=== PATIENT | male | born 1945 | race Caucasian/White ===

== ENCOUNTER 2022-12-07 13:00 | Outpatient (OUT) | payer MEDICARE, OTHER, SELFPAY ==
--- NOTE | 2022-12-07 14:54 | CA_ITS ---
Patient: AJ PAYNE Exam Date: 12/07/2022 : 1945 Gender:M Ordering : HILLARY MURPHY Admission #: [id number] Family : Order #: [id number] CLICK HERE TO VIEW EXAM ECHOCARDIOGRAM REPORT PROCEDURE: CA ECHO DOPPLER COMPLETE INDICATIONS: CAD, HTN, Dilatation of aorta COMPARISON: None. DESCRIPTION: COMPLETE ECHOCARDIOGRAM Real-time transthoracic echocardiography with 2D, M-mode, spectral and color flow Doppler performed. QUALITY: Technical quality was good. LEFT VENTRICLE: Normal chamber size. Moderate concentric left ventricular hypertrophy. Global left ventricular systolic function is normal. LV EF: Estimated left ventricular ejection fraction is 60-65% DIASTOLIC: Grade 2 diastolic dysfunction. ATRIAL SEPTUM: LEFT ATRIUM: Moderate dilatation. RIGHT ATRIUM: Moderate dilatation. RIGHT VENTRICLE: Mildly dilated. Normal right ventricular systolic function. TRICUSPID VALVE: Normal mobility and thickness. No stenosis with mild regurgitation. Mild pulmonary hypertension. RVSP 41 mmHg MITRAL VALVE: Normal mobility and thickness. No evidence of mitral valve stenosis. Mild mitral annular calcification. Trivial mitral regurgitation. AORTIC VALVE: Normal trileaflet appearance. Mildly calcified aortic valve. Normal leaflet mobility. No evidence of aortic valve stenosis. No aortic regurgitation. AORTIC ROOT: Mildly dilated aortic root measuring 3.8 cm. Normal size ascending aorta measuring 3.6 cm. PULMONIC VALVE: Normal thickness and mobility. No stenosis. Trivial regurgitation. PERICARDIUM: No evidence of pericardial effusion. IVC: Not well visualized. PLEURA: CONCLUSION: 1. Moderate concentric left ventricular hypertrophy with normal systolic function. LVEF is 60 to 65%. 2. Mildly dilated right ventricle with normal systolic function. 3. Grade 2 diastolic dysfunction. 4. Moderate biatrial dilatation. 5. Mild tricuspid regurgitation. 6. Mildly elevated right-sided pressures. 7. Mildly dilated aortic root with normal size ascending aorta. Adult Echocardiography Procedure Report Left Ventricle LVEDD (3.7 - 5.6 cm): 4.00 cm LVESD (2.2 - 4.0 cm): 2.66 cm LVIVS thickness (0.6 - 1.2 cm): 1.29 cm LVPW thickness (0.5 - 1.0 cm): 1.73 cm e': 0.09 m/s E - e': 9.18 LVOT Max Gradient: 2.91 mm[Hg] LVOT Area (cm2): 0.85 m/s Peak Velocity (LVOT): 0.85 m/s Mean Velocity (LVOT): 0.60 m/s LVOT Diameter 2.18 cm Left Ventricular Ejection Fraction: 67.18 % Left Atrium LA Volume Index (2D A2C): 45.07 ml/m2 Left Atrium Systolic Dimension: 4.17 cm Mitral Valve MV E to A Ratio: 1.06 Mitral Valve A-Wave Peak Velocity: 0.80 m/s Mitral Valve E-Wave Peak Velocity: 0.85 m/s Right Ventricle RV Internal Diastolic Dimension: 3.19 cm Aorta AO Root Diam: 3.77 cm Ascending Ao Diam: 3.64 cm Aortic Valve AoV Area (Peak Cesario): 1.42 cm2, 1.42 cm2 AoV Area (VTI): 1.69 cm2, 1.69 cm2 Peak Velocity(Antegrade Flow): 2.25 m/s Peak Gradient(Antegrade Flow): 20.20 mm[Hg] Mean Velocity(Antegrade Flow): 1.43 m/s Mean Gradient(Antegrade Flow): 9.75 mm[Hg] Velocity Time Integral: 43.86 cm Tricuspid Valve Peak Velocity (Regurgitant Flow): 2.80 m/s, 3.06 m/s Pulmonic Valve Mean Gradient: 5.64 mm[Hg], 3.62 mm[Hg] Mean Velocity: 1.13 m/s, 0.90 m/s Peak Velocity: 1.43 m/s Peak Gradient: 10.40 mm[Hg], 6.33 mm[Hg] Right Atrium Right Atrium Systolic Pressure: 36.36 ml, 36.36 ml Dictated by: Gallito Griffith M.D. on 12/07/2022 at 18:21 Approved by: Gallito Griffith M.D. on 12/07/2022 at 18:29
== END 2022-12-07 13:01 | disposition home or self-care (01) ==
LOC: CARD 13:00
PROVIDERS: PCP Internal Medicine; Visit Provider Nurse Practitioner
DX: I25.10 Atherosclerotic heart disease of native coronary artery without angina pectoris (principal); I10 Essential (primary) hypertension; I77.819 Aortic ectasia, unspecified site; I07.1 Rheumatic tricuspid insufficiency
CPT/HCPCS: 93306

== ENCOUNTER 2023-04-30 12:09 | Observation (INO) | payer MEDICARE, OTHER, SELFPAY ==
[2023-04-30] VITALS (16 sets, daily range): BP systolic 90–139; BP diastolic 54–87; PULSE 50–86; RESP 16–24; TEMP 36.6–36.7; O2SAT 98–100; BMI 29.7
--- NOTE | 2023-04-30 12:30 | ECG_ITS ---
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: : 1945 Requested By: BERNARD SANCHEZ Order Number: [id number] Reading MD: NIRMAL HIRSCH Measurements Intervals [place] Rate: 77 P: 65 [place]: 196 QRS: -52 QRSD: 112 T: 73 QT: 406 QTc: 438 Interpretive Statements 1100 Sinus rhythm 1474 with frequent supraventricular premature complexes 2630 Left anterior fascicular block 3314 Cannot rule out anterolateral myocardial infarction, age undetermined 8102 Low QRS voltage in chest leads 9150 abnormal ECG Compared to ECG 02/03/2021 18:03:46 Low QRS voltage now present Left ventricular hypertrophy no longer present Early repolarization no longer present Myocardial infarct finding still present Electronically Signed On 05-02-2023 5:31:45 EST by NIRMAL HIRSCH
--- NOTE | 2023-04-30 12:30 | XR_ITS ---
[facility] [place] [id number] Patient Name: AJ PAYNE MRN: [id number] date: 1945 Sex: M Assigned Patient Location: ER Current Patient Location: ER Accession/Order Number: [id number] Exam Date: 04/30/2023 12:35 Report Date: 04/30/2023 12:49 At the request of: KEILY VELASQUEZ Procedure: XR chest 1V EXAMINATION: XR chest 1V 04/30/2023 9:47 AM PST HISTORY: cough TECHNIQUE: Single frontal view of the chest acquired. COMPARISONS: Chest x-ray 02/03/2021. FINDINGS: Lines/tubes/other: None. Heart and mediastinum: Cardiac silhouette is upper limits of normal for size, similar. Bones: No acute osseous abnormality. Lungs: Bilateral patchy opacification appears similar on the right and mildly worse on the left compared with 02/03/2021. No pulmonary edema. Pleura: There is no significant pleural effusion or pneumothorax. Other: None. XR/XR chest 1V IMPRESSION: Chronic bilateral pulmonary opacification which appears mildly worse on the left and could represent differences in exam technique versus superimposed pneumonia and/or aspiration. Consider noncontrast CT of the chest for more sensitive evaluation. Electronically authenticated by: GILBERT MUNGUIA Date: 04/30/2023 12:49
--- NOTE | 2023-04-30 12:32 | ED.GENADUL1 ---
HPI - General Adult General Chief complaint: Recheck/Abnormal Lab/Rx Stated complaint: ABNORMAL LAB VALUE Time Seen by Provider: 04/30/23 12:12 Source: patient Mode of arrival: walk-in Limitations: no limitations History of Present Illness HPI narrative: 77-year-old male presents to the emergency department for low blood count. He reportedly had blood drawn yesterday and he got a phone call that his hemoglobin was 5.2. This was done at another facility. 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 His stools have been slightly dark but not black. He is not on blood thinners. Related Data Home Medications Medication Instructions Recorded Confirmed aspirin 81 mg tablet,delayed 81 mg PO DAILY 04/30/23 04/30/23 release (Adult Low Dose Aspirin) atorvastatin 20 mg tablet 20 mg PO DAILY 04/30/23 04/30/23 clopidogrel 75 mg tablet 75 mg PO DAILY 04/30/23 04/30/23 levothyroxine 100 mcg tablet 100 mcg PO DAILY 04/30/23 04/30/23 multivitamin (Daily Multi-Vitamin 1 tab PO DAILY 04/30/23 04/30/23 tablet) omega 6-yzw-axz-fish oil 1,000 mg 1 cap PO TID 04/30/23 04/30/23 (120 mg-180 mg) capsule (Fish Oil) omeprazole 40 mg capsule,delayed 40 mg PO DAILY 04/30/23 04/30/23 release tizanidine 4 mg tablet 4 mg PO BEDTIME 04/30/23 04/30/23 Allergies Allergy/AdvReac Type Severity Reaction Status Date / Time No Known Drug Allergies Allergy Verified 04/30/23 12:17 PFSH PFS Social History Smoking status: Never smoker Exam Constitutional Vital Signs, click to edit/add: Last Vital Signs Temp 97.9 F 04/30/23 12:13 Pulse 86 04/30/23 12:13 Resp 20 04/30/23 12:13 BP 130/64 04/30/23 12:13 Pulse Ox 100 04/30/23 12:13 O2 Del Method Room Air 04/30/23 12:13 Course Vital Signs Vital signs: Vital Signs Temperature 97.9 F 04/30/23 12:13 Pulse Rate 86 04/30/23 12:13 Respiratory Rate 20 04/30/23 12:13 Blood Pressure 130/64 04/30/23 12:13 Pulse Oximetry 100 04/30/23 12:13 Oxygen Delivery Method Room Air 04/30/23 12:13 Temperature 97.9 F 04/30/23 12:13 Pulse Rate 86 04/30/23 12:13 Respiratory Rate 20 04/30/23 12:13 Blood Pressure 130/64 04/30/23 12:13 Pulse Oximetry 100 04/30/23 12:13 Oxygen Delivery Method Room Air 04/30/23 12:13 Medical Decision Making MDM Narrative Medical decision making narrative: Hemoglobin here is 5.3. Rectal exam showed heme-negative stool. Further workup will be required and blood is being ordered. Findings are discussed with the patient Differential Diagnosis Differential Diagnosis: GI bleed, bone marrow abnormality Lab Data Lab results reviewed: Yes I reviewed the patient's lab results Labs: Lab Results 04/30/23 04/30/23 Range/Units 12:24 12:44 WBC 3.1 L (4.0-11.0) 10^3/uL RBC 2.74 L (4.70-6.10) 10^6/uL Hgb 5.3 L* (14.0-18.0) g/dL Hct 20.7 L* (42.0-54.0) % MCV 75.5 L (80.0-94.0) fL MCH 19.3 L (25.9-34.0) pg MCHC 25.6 L (29.9-35.2) g/dL RDW 17.2 H (11.0-15.0) % Plt Count 105 L (150-450) 10^3/uL MPV 11.0 (9.5-13.5) fL PT 12.6 H (9.0-11.6) sec INR 1.20 APTT 27.0 (22.3-36.2) sec Sodium 144 (136-145) mmol/L Potassium 3.7 (3.5-5.1) mmol/L Chloride 111 H (98-107) mmol/L Carbon Dioxide 25.6 (21.0-32.0) mmol/L Anion Gap 11.1 BUN 22.0 H (7.0-18.0) mg/dL Creatinine 0.91 (0.70-1.30) mg/dL Est GFR ( Amer) >60 (>=60) Est GFR (Non-Af Amer) >60 (>=60) BUN/Creatinine Ratio 24.2 Glucose 117 H (74-106) mg/dL Calcium 8.2 L (8.5-10.1) mg/dL Stool Occult Blood Negative ECG Data Attestation: I personally reviewed and interpreted this ECG as follows: (EKG on my interpretation shows sinus rhythm with a rate of 77.) Discharge Plan Discharge Chief Complaint: Recheck/Abnormal Lab/Rx Clinical Impression: Anemia Patient Disposition: Admitted as Observation Time of Disposition Decision: 12:58 Condition: Good
[2023-04-30 12:40] LABS: Anion Gap 11.1; BUN Creatinine Ratio 24.2; Calcium 8.2 mg/dL (8.5-10.1); Carbon Dioxide 25.6 mmol/L (21.0-32.0); Chloride 111 mmol/L (98-107); Estimated GFR (African America >60 (>=60); Estimated GFR (Non-African Ame >60 (>=60); Glucose 117 mg/dL (74-106); Potassium 3.7 mmol/L (3.5-5.1); Sodium 144 mmol/L (136-145)
[2023-04-30 12:41] LABS: Mean Corpuscular HGB Conc 25.6 g/dL (29.9-35.2); Mean Corpuscular Hemoglobin 19.3 pg (25.9-34.0); Mean Corpuscular Volume 75.5 fL (80.0-94.0); Platelet Count 105 10^3/uL (150-450); Red Blood Count 2.74 10^6/uL (4.70-6.10); Red Cell Distribution Width 17.2 % (11.0-15.0); White Blood Count 3.1 10^3/uL (4.0-11.0)
[2023-04-30 12:46] LABS: Hemoglobin 5.3 g/dL (14.0-18.0); Prothrombin Time 12.6 sec (9.0-11.6)
[2023-04-30 12:47] LABS: Hematocrit 20.7 % (42.0-54.0)
[2023-04-30 12:54] LABS: Occult Blood Negative
[2023-04-30 13:09] LABS: Band Neutrophils Absolute 0.1 10^3/uL (0.0-0.3); Basophils Abs Manual 0.03 10^3/uL (0.00-0.10); Eosinophils Absolute Manual 0.21 10^3/uL (0.00-0.70); Lymphocytes Absolute Manual 0.62 10^3/uL (1.20-3.80); Monocytes Absolute Manual 0.15 10^3/uL (0.30-0.80); Segmented Neut Absolute Manual 2.01 10^3/uL (1.4-6.5)
[2023-04-30 13:10] LABS: Anisocytosis 1+; Hypochromasia 2+; Microcytosis 2+; Ovalocytes 1+; Poikilocytosis 1+
[2023-04-30] MEDS: 0.9 % SODIUM CHLORIDE 250 ML IV ×2 (14:04→21:21)
--- NOTE | 2023-04-30 14:27 | P.HP_ITS ---
H&P: HPI History of Present Illness Chief complaint: ABNORMAL LAB VALUE Narrative: Patient instructed to present to the emergency room secondary to outpatient workup for acute CVA which revealed significant anemia with a hemoglobin just above 5. His melena. No hematuria. No hemoptysis. No hematemesis. Has had a general fatigue over the last 2 to 3 months. More cold intolerance as well. Patient will be admitted for further workup and treatment of his significant anemia Review of Systems ROS Status of ROS 10 or more systems reviewed and unremark able except as noted in history and below 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 - Unspecified cirrhosis of liver (ICD-10) Surgical History (Updated 04/30/23 @ 13:50 by Karena Monroe) H/O heart artery stent ?Z95.5 - Presence of coronary angioplasty implant and graft (ICD-10) Social History Smoking status: Never smoker Highest level of school completed/degree received: Bachelor's degree Meds Home Medications and Allergies Home Medications Medication Instructions Recorded Confirmed Type aspirin 81 mg tablet,delayed 81 mg PO DAILY 04/30/23 04/30/23 History release (Adult Low Dose Aspirin) atorvastatin 20 mg tablet 20 mg PO DAILY 04/30/23 04/30/23 History clopidogrel 75 mg tablet 75 mg PO DAILY 04/30/23 04/30/23 History levothyroxine 100 mcg tablet 100 mcg PO DAILY 04/30/23 04/30/23 History multivitamin (Daily Multi-Vitamin 1 tab PO DAILY 04/30/23 04/30/23 History tablet) omega 5-zgu-dgm-fish oil 1,000 mg 1 cap PO TID 04/30/23 04/30/23 History (120 mg-180 mg) capsule (Fish Oil) omeprazole 40 mg capsule,delayed 40 mg PO DAILY 04/30/23 04/30/23 History release tizanidine 4 mg tablet 4 mg PO BEDTIME 04/30/23 04/30/23 History Allergies Allergy/AdvReac Type Severity Reaction Status Date / Time No Known Drug Allergies Allergy Verified 04/30/23 12:17 Exam Constitutional Vital Signs, click to edit/add: Last Vital Signs Temp 98 F 04/30/23 14:05 Pulse 71 04/30/23 14:05 Resp 16 04/30/23 14:05 BP 127/73 04/30/23 14:05 Pulse Ox 100 04/30/23 14:05 O2 Del Method Room Air 04/30/23 14:05 Documenting provider has reviewed patient's vital signs: yes Common normals: no apparent distress Chest Common normals: inspection of chest normal Respiratory Common normals: normal respiratory effort and no retractions Cardio Common normals: regular rate and regular rhythm; murmurs detected Heart sounds: murmur systolic GI Common normals: Normal to inspection, nondistended, normoactive bowel sounds present Neuro Common normals: oriented x3, CN's II-XII intact bilaterally and moves all extremities Results Labs Labs: Short CBC 04/30/23 Range/Units 12:24 WBC 3.1 L (4.0-11.0) 10^3/uL Hgb 5.3 L* (14.0-18.0) g/dL Hct 20.7 L* (42.0-54.0) % Plt Count 105 L (150-450) 10^3/uL BMP 04/30/23 12:24 Sodium 144 Potassium 3.7 Chloride 111 H Carbon Dioxide 25.6 BUN 22.0 H Creatinine 0.91 Glucose 117 H Calcium 8.2 L Assessment and Plan Assessment and Plan (1) Anemia: Assessment and Plan: Anemia-still sorting out the source. Initially Hemoccult was negative we will repeat that. Check peripheral smear, ferritin, iron, B12, folate. Consult to hematology today. Initially try 2 units of PRBCs if hemoglobin less than 8.5 to give a third. (2) Thrombocytopenia: Assessment and Plan: See workup above (3) Neutropenia: Assessment and Plan: See work (4) Hypothyroid: Assessment and Plan: Check TSH (5) Non-alcoholic cirrhosis: Assessment and Plan: Check liver profile (6) GERD (gastroesophageal reflux disease): Assessment and Plan: Gastritis still possible cause for the GI source of blood loss. IV Protonix Plan *Patient is observation status with initial workup. If hemoglobin comes up nicely with the transfusion would not need further workup as an inpatient and can be discharged home tomorrow
[2023-04-30 15:02] LABS: Erythrocyte Sedimentation Rate 1 mm/hr (<=20)
[2023-04-30 15:06] LABS: Alanine Aminotransferase 40 U/L (16-63); Albumin Globulin Ratio 0.8; Albumin Level 2.7 g/dL (3.4-5.0); Alkaline Phosphatase 145 U/L (46-116); Aspartate Amino Transferase 43 U/L (15-37); Bilirubin Direct 0.2 mg/dL (0.0-0.2); Bilirubin Total 0.6 mg/dL (0.2-1.0); Globulin 3.6 g/dL; Total Protein 6.3 g/dL (6.4-8.2); Troponin I High Sensitivity 32.9 pg/mL (4.0-76.1)
[2023-04-30 15:11] LABS: C Reactive Protein <0.50 mg/dL (<=0.50); TSH W/ REFLEX FT4 2.477 uIU/mL (0.358-3.740)
[2023-04-30] MEDS: FUROSEMIDE 20 MG/2 ML VIAL IVP (15:41)
[2023-04-30 18:10] LABS: Hematocrit 27.3 % (42.0-54.0); Hemoglobin 7.5 g/dL (14.0-18.0); Mean Corpuscular HGB Conc 27.5 g/dL (29.9-35.2); Mean Corpuscular Hemoglobin 21.9 pg (25.9-34.0); Mean Corpuscular Volume 79.8 fL (80.0-94.0); Mean Platelet Volume 11.4 fL (9.5-13.5); Platelet Count 96 10^3/uL (150-450); Red Blood Count 3.42 10^6/uL (4.70-6.10); Red Cell Distribution Width 17.4 % (11.0-15.0); White Blood Count 3.2 10^3/uL (4.0-11.0)
--- NOTE | 2023-04-30 19:56 | PM.CN ---
Consult Note: [facility] Data of Consult Consult date: 04/30/23 Requesting Physician: Jose Manning MD Primary Care Provider: BERNARD SANCHEZ Consult Narrative Reason for consult: microcytic anemia, iron deficiency, leukopenia, thrombocytopenia Narrative: 77 y/o male who has a hx of CAD and stenting, who was instructed to present to the emergency room secondary to outpatient workup for acute CVA which revealed significant anemia with a hemoglobin just above 5 g/dL. He notes that he takes low dose ASA and per review of his med list, he does take plavix. Upon probing, he states that perhaps his stools have bit a bit dark brown, but not bright red or black. He denies hematuria. No hemoptysis. No hematemesis. He has had a general fatigue over the last 2 to 3 months. More cold intolerance as well. 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 He notes that he did have gall bladder surgery approx a year ago. Labs show WBC 3.1, Hgb 5.3 g/dL, MCV 75.5, plt 105K. He has received 2 unit PRBC while admitted. He has a normal differential. ESR is normal. Cr is normal. He has low iron 23 and low ferritin 7. B12 and folic acid normal. His stool was negative for blood. I discussed that his acute issue suggests prior / subacute blood loss anemia, especially with dual antiplatelet therapy. He would benefit from outpatient scope. I discussed that he may also have a low grade myelodysplastic syndrome with his other cell lines being low, however, this would be tested as an outpt, with possible bone marrow biopsy. 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 I will coordinate IV iron while admitted, and also long acting IV iron as an outpt. ECOG PS 2-3. cc:: CC: Jose Manning MD Review of Systems ROS Narrative A comprehensive 12 point review of systems was conducted and is negative other than that reported in the history of present illness. 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 - Unspecified cirrhosis of liver (ICD-10) Surgical History (Updated 04/30/23 @ 13:50 by Karena Monroe) H/O heart artery stent ?Z95.5 - Presence of coronary angioplasty implant and graft (ICD-10) Social History Smoking status: Never smoker Highest level of school completed/degree received: Bachelor's degree Meds Home Medications and Allergies Home Medications Medication Instructions Recorded Confirmed Type aspirin 81 mg tablet,delayed 81 mg PO DAILY 04/30/23 04/30/23 History release (Adult Low Dose Aspirin) atorvastatin 20 mg tablet 20 mg PO DAILY 04/30/23 04/30/23 History clopidogrel 75 mg tablet 75 mg PO DAILY 04/30/23 04/30/23 History levothyroxine 100 mcg tablet 100 mcg PO DAILY 04/30/23 04/30/23 History multivitamin (Daily Multi-Vitamin 1 tab PO DAILY 04/30/23 04/30/23 History tablet) omega 1-xyi-vsr-fish oil 1,000 mg 1 cap PO TID 04/30/23 04/30/23 History (120 mg-180 mg) capsule (Fish Oil) omeprazole 40 mg capsule,delayed 40 mg PO DAILY 04/30/23 04/30/23 History release tizanidine 4 mg tablet 4 mg PO BEDTIME 04/30/23 04/30/23 History Allergies Allergy/AdvReac Type Severity Reaction Status Date / Time No Known Drug Allergies Allergy Verified 04/30/23 12:17 Exam Narrative Exam Narrative: Documenting provider has reviewed patient's vital signs: yes Constitutional: well developed male, normal weight HEENT: no apparent distress, normocephalic and atraumatic Chest Common normals: inspection of chest normal. No wheezing, crackles. Respiratory Common normals: normal respiratory effort and no retractions Cardio Common normals: regular rate and regular rhythm; Heart sounds: murmur systolic GI Common normals: Normal to inspection, nondistended, normoactive bowel sounds present Extremities: no clubbing, cyanosis, edema Neuro Common normals: oriented x3, CN's II-XII intact bilaterally and moves all extremities Lymphatics: No cervical or axillary LAD Back / musculoskeletal: No pain or tenderness to palpation SKIN: No rashes Constitutional Vital Signs, click to edit/add: Last Vital Signs Temp 98 F 04/30/23 18:25 Pulse 74 04/30/23 18:25 Resp 16 04/30/23 18:25 BP 114/78 04/30/23 18:25 Pulse Ox 98 04/30/23 18:25 O2 Del Method Room Air 04/30/23 18:25 Results Labs Labs: Short CBC 04/30/23 04/30/23 Range/Units 12:24 18:03 WBC 3.1 L 3.2 L (4.0-11.0) 10^3/uL Hgb 5.3 L* 7.5 L (14.0-18.0) g/dL Hct 20.7 L* 27.3 L (42.0-54.0) % Plt Count 105 L 96 L (150-450) 10^3/uL BMP 04/30/23 12:24 Sodium 144 Potassium 3.7 Chloride 111 H Carbon Dioxide 25.6 BUN 22.0 H Creatinine 0.91 Glucose 117 H Calcium 8.2 L Liver Function 04/30/23 Range/Units 12:24 Total Bilirubin 0.6 (0.2-1.0) mg/dL Direct Bilirubin 0.2 (0.0-0.2) mg/dL AST 43 H (15-37) U/L ALT 40 (16-63) U/L Alkaline Phosphatase 145 H (46-116) U/L Albumin 2.7 L (3.4-5.0) g/dL Assessment and Plan Assessment and Plan (1) Anemia: (2) Thrombocytopenia: (3) Neutropenia: (4) Hypothyroid: (5) Non-alcoholic cirrhosis: (6) GERD (gastroesophageal reflux disease): Plan 77 y/o male who has a hx of CAD and stenting, on dual antiplatelet therapy, now referred for acute / microcytic anemia, as well as leukopenia / thrombocytopenia. Impression: # Acute / microcytic anemia # Iron deficiency, with low iron and low ferritin, and microcytosis # Dual antiplatelet therapy with asa and plavix # CAD and prior stenting, several years ago # Leukopenia / thrombocytopenia # Hx of NAFLD / SCALNON PLAN: - retic, LDH, haptoglobin, peripheral smear, SPEP - agree with pRBC to maintain Hgb > 7 g/dL - stool appropriately tested and negative for bleeding / occult blood - i will add IV Venofer while admitted. He will also need long acting IV iron, such as Injectafer or Feraheme, from our office when discharged. - i would recommend potentially holding plavix [facility], as his stenting appears to be several years ago, but defer this to PCP / cardiology - he will benefit from upper / lower endoscopy as an outpt - will ensure no hemolysis. If that testing is negative, we will discuss possible BM biopsy as an outpt to evaluate for myelodysplastic syndrome. DDx for his low wbc / platelets can also be liver disease. I can facilitate testing including liver / spleen US as an oupt. Thank you for the consult. He can be discharged when Hgb stable, and after IV iron infusion. Dior Sevilla MD Hematology Oncology
[2023-04-30 21:12] LABS: Lactate Dehydrogenase 300 U/L (85-227)
[2023-04-30] MEDS: TIZANIDINE HCL 4 MG TABLET PO (21:21)
[2023-04-30] MEDS: ATORVASTATIN CALCIUM 20 MG TABLET PO (21:21)
[2023-04-30] MEDS: FISH OIL 1,000 MG CAPSULE 1000 MG PO (21:21)
[2023-05-01 03:00] VITALS: PULSE 60; RESP 22
[2023-05-01 04:00] VITALS: BP 104/68; PULSE 58; RESP 24; TEMP 36.7; O2SAT 96
[2023-05-01 04:19] LABS: Basophils Percent Auto 0.8 % (0.2-2.0); Eosinophils Absolute Auto 0.2 10^3/uL (0.0-0.7); Eosinophils Percent Auto 5.1 % (0.9-7.0); Hematocrit 27.5 % (42.0-54.0); Hemoglobin 7.8 g/dL (14.0-18.0); Immature Granulocytes Abs Auto 0.05 10^3/uL (0.00-0.03); Immature Granulocytes Pct Auto 1.3 % (0.0-0.5); Lymphocytes Absolute Auto 0.9 10^3/uL (1.2-3.8); Mean Corpuscular HGB Conc 28.4 g/dL (29.9-35.2); Mean Corpuscular Hemoglobin 22.3 pg (25.9-34.0); Mean Corpuscular Volume 78.8 fL (80.0-94.0); Mean Platelet Volume 11.7 fL (9.5-13.5); Monocytes Absolute Auto 0.4 10^3/uL (0.3-0.8); Monocytes Percent Auto 11.1 % (1.7-12.0); Neutrophils Absolute Auto 2.4 10^3/uL (1.4-6.5); Neutrophils Percent Auto 59.7 % (43.0-75.0); Platelet Count 95 10^3/uL (150-450); Red Blood Count 3.49 10^6/uL (4.70-6.10); Red Cell Distribution Width 17.8 % (11.0-15.0)
[2023-05-01 04:40] LABS: INR 1.23; Partial Thromboplastin Time 28.1 sec (22.3-36.2); Prothrombin Time 12.9 sec (9.0-11.6)
[2023-05-01 04:41] LABS: Alanine Aminotransferase 35 U/L (16-63); Albumin Globulin Ratio 0.8; Albumin Level 2.4 g/dL (3.4-5.0); Alkaline Phosphatase 130 U/L (46-116); Anion Gap 9.6; Aspartate Amino Transferase 40 U/L (15-37); BUN Creatinine Ratio 21.3; Bilirubin Total 1.5 mg/dL (0.2-1.0); Calcium 7.8 mg/dL (8.5-10.1); Carbon Dioxide 25.4 mmol/L (21.0-32.0); Chloride 111 mmol/L (98-107); Estimated GFR (African America >60 (>=60); Estimated GFR (Non-African Ame >60 (>=60); Globulin 3.1 g/dL; Glucose 91 mg/dL (74-106); Sodium 142 mmol/L (136-145); Total Protein 5.5 g/dL (6.4-8.2)
[2023-05-01] MEDS: IRON SUCROSE COMPLEX 300 MG in 0.9 % SODIUM CHLORIDE 250 ML 176.667 MG IV (08:03)
[2023-05-01 08:16] LABS: Bilirubin Urine NEGATIVE (NEGATIVE); Blood Urine NEGATIVE (NEGATIVE); Clarity Urine CLEAR (CLEAR); Color Urine YELLOW (YELLOW); Glucose Urine UA NEGATIVE (NEGATIVE); Ketones Urine NEGATIVE (NEGATIVE); Leukocyte Esterase Urine NEGATIVE (NEGATIVE); Nitrite Urine NEGATIVE (NEGATIVE); Protein Urine NEGATIVE (NEG/TRACE)
--- NOTE | 2023-05-01 08:55 | PM.DS1 ---
DS: Providers Provider Date of admission: 04/30/23 13:26 Primary care physician: BERNARD SANCHEZ Consults: 04/30/23 14:20 Consult to Oncology Routine Consulting Provider: Dior Sevilla Reason for consultation: Anemia, neutropenia, thrombocytopenia Has provider been notified: No DS: Diagnosis Discharge Diagnosis (1) Anemia: (2) Thrombocytopenia: (3) Neutropenia: (4) Hypothyroid: (5) Non-alcoholic cirrhosis: (6) GERD (gastroesophageal reflux disease): DS: Summary Hospital Course Hospital Course: Patient was having a workup with his PCP for weakness. The weakness had been going on for couple months. Also cold intolerance. Workup found patient has significantly anemia with a hemoglobin of around 5. Patient was admitted, given 2 units of PRBCs. Had good improvement in his hemoglobin up to 7.7, he has a 7 for today and feels stable. Consultation with hematology. Workup undergoing for the source. Did recommend he continue with his Plavix and aspirin as his Hemoccult x 2 were both negative. Not having any melena. Patient did receive an iron infusion while he was here. He can follow-up with oncology within the next week. 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 These could be related to his nonalcoholic cirrhosis as well however. Patient is to follow-up with PCP within the next week. Medications see list. Time Spent with Patient Time attestation: Total time spent providing and/or coordinating discharge services: Exam Constitutional Vital Signs, click to edit/add: Last Vital Signs Temp 98.1 F 05/01/23 04:00 Pulse 58 L 05/01/23 04:00 Resp 24 05/01/23 04:00 BP 104/68 05/01/23 04:00 Pulse Ox 96 05/01/23 04:00 O2 Del Method Room Air 05/01/23 04:00 Documenting provider has reviewed patient's vital signs: yes Common normals: no apparent distress Chest Common normals: inspection of chest normal Respiratory Common normals: normal respiratory effort and no retractions Cardio Common normals: regular rate and regular rhythm; murmurs detected Heart sounds: murmur systolic GI Common normals: Normal to inspection, nondistended, normoactive bowel sounds present Neuro Common normals: oriented x3, CN's II-XII intact bilaterally and moves all extremities DS: Data Data Completed and Pending Labs on day of discharge: Labs from last 24 hours 05/01/23 05/01/23 04/30/23 07:00 03:58 20:44 WBC 4.0 RBC 3.49 L Hgb 7.8 L Hct 27.5 L MCV 78.8 L MCH 22.3 L MCHC 28.4 L RDW 17.8 H Plt Count 95 L MPV 11.7 Neut % (Auto) 59.7 Lymph % (Auto) 22.0 [place] % (Auto) 11.1 Eos % (Auto) 5.1 Baso % (Auto) 0.8 Neut # (Auto) 2.4 Lymph # (Auto) 0.9 L [place] # (Auto) 0.4 Eos # (Auto) 0.2 Baso # (Auto) 0.0 Abs Immat Gran (auto) 0.05 H Seg Neuts % (Manual) Band Neutrophils % Lymphocytes % (Manual) Monocytes % (Manual) Eosinophils % (Manual) Basophils % (Manual) Imm/Tot Granulo (auto) 1.3 H Neutrophils # (Manual) Band Neutrophils # Lymphocytes # (Manual) Monocytes # (Manual) Eosinophils # (Manual) Basophils # (Manual) Hypochromasia Poikilocytosis Anisocytosis Microcytosis Ovalocytes ESR Retic Count (auto) 2.30 PT 12.9 H INR 1.23 APTT 28.1 Sodium 142 Potassium 4.0 Chloride 111 H Carbon Dioxide 25.4 Anion Gap 9.6 BUN 20.0 H Creatinine 0.94 Est GFR ( Amer) >60 Est GFR (Non-Af Amer) >60 BUN/Creatinine Ratio 21.3 Glucose 91 Calcium 7.8 L Iron Ferritin Total Bilirubin 1.5 H Direct Bilirubin AST 40 H ALT 35 Alkaline Phosphatase 130 H Lactate Dehydrogenase 300 H Troponin I High Sens C-Reactive Protein NT-Pro-B Natriuret Pep Total Protein 5.5 L Albumin 2.4 L Globulin 3.1 Albumin/Globulin Ratio 0.8 Vitamin B12 Folate TSH & Free T4 Interp Urine Color Yellow Urine Clarity Clear Urine pH 6.0 Ur Specific [place] 1.010 Urine Protein Negative Urine Glucose (UA) Negative Urine Ketones Negative Urine Occult Blood Negative Urine Nitrite Negative Urine Bilirubin Negative Urine Urobilinogen 1.0 Ur Leukocyte Esterase Negative Stool Occult Blood Blood Type Antibody Screen Crossmatch 04/30/23 04/30/23 04/30/23 18:03 13:11 12:44 WBC 3.2 L RBC 3.42 L Hgb 7.5 L Hct 27.3 L MCV 79.8 L MCH 21.9 L MCHC 27.5 L RDW 17.4 H Plt Count 96 L MPV 11.4 Neut % (Auto) Lymph % (Auto) [place] % (Auto) Eos % (Auto) Baso % (Auto) Neut # (Auto) Lymph # (Auto) [place] # (Auto) Eos # (Auto) Baso # (Auto) Abs Immat Gran (auto) Seg Neuts % (Manual) Band Neutrophils % Lymphocytes % (Manual) Monocytes % (Manual) Eosinophils % (Manual) Basophils % (Manual) Imm/Tot Granulo (auto) Neutrophils # (Manual) Band Neutrophils # Lymphocytes # (Manual) Monocytes # (Manual) Eosinophils # (Manual) Basophils # (Manual) Hypochromasia Poikilocytosis Anisocytosis Microcytosis Ovalocytes ESR Retic Count (auto) PT INR APTT Sodium Potassium Chloride Carbon Dioxide Anion Gap BUN Creatinine Est GFR ( Amer) Est GFR (Non-Af Amer) BUN/Creatinine Ratio Glucose Calcium Iron Ferritin Total Bilirubin Direct Bilirubin AST ALT Alkaline Phosphatase Lactate Dehydrogenase Troponin I High Sens C-Reactive Protein NT-Pro-B Natriuret Pep Total Protein Albumin Globulin Albumin/Globulin Ratio Vitamin B12 Folate TSH & Free T4 Interp Urine Color Urine Clarity Urine pH Ur Specific [place] Urine Protein Urine Glucose (UA) Urine Ketones Urine Occult Blood Urine Nitrite Urine Bilirubin Urine Urobilinogen Ur Leukocyte Esterase Stool Occult Blood Negative Blood Type Antibody Screen Crossmatch See Detail 04/30/23 12:24 WBC 3.1 L RBC 2.74 L Hgb 5.3 L* Hct 20.7 L* MCV 75.5 L MCH 19.3 L MCHC 25.6 L RDW 17.2 H Plt Count 105 L MPV 11.0 Neut % (Auto) Lymph % (Auto) [place] % (Auto) Eos % (Auto) Baso % (Auto) Neut # (Auto) Lymph # (Auto) [place] # (Auto) Eos # (Auto) Baso # (Auto) Abs Immat Gran (auto) Seg Neuts % (Manual) 65.0 Band Neutrophils % 2.0 Lymphocytes % (Manual) 20.0 L Monocytes % (Manual) 5.0 Eosinophils % (Manual) 7.0 Basophils % (Manual) 1.0 Imm/Tot Granulo (auto) Neutrophils # (Manual) 2.01 Band Neutrophils # 0.1 Lymphocytes # (Manual) 0.62 L Monocytes # (Manual) 0.15 L Eosinophils # (Manual) 0.21 Basophils # (Manual) 0.03 Hypochromasia 2+ Poikilocytosis 1+ Anisocytosis 1+ Microcytosis 2+ Ovalocytes 1+ ESR 1 Retic Count (auto) PT 12.6 H INR 1.20 APTT 27.0 Sodium 144 Potassium 3.7 Chloride 111 H Carbon Dioxide 25.6 Anion Gap 11.1 BUN 22.0 H Creatinine 0.91 Est GFR ( Amer) >60 Est GFR (Non-Af Amer) >60 BUN/Creatinine Ratio 24.2 Glucose 117 H Calcium 8.2 L Iron 23.0 L Ferritin 7.0 L Total Bilirubin 0.6 Direct Bilirubin 0.2 AST 43 H ALT 40 Alkaline Phosphatase 145 H Lactate Dehydrogenase Troponin I High Sens 32.9 C-Reactive Protein <0.50 NT-Pro-B Natriuret Pep 673.0 Total Protein 6.3 L Albumin 2.7 L Globulin 3.6 Albumin/Globulin Ratio 0.8 Vitamin B12 822.0 Folate 24.10 TSH & Free T4 Interp 2.477 Urine Color Urine Clarity Urine pH Ur Specific [place] Urine Protein Urine Glucose (UA) Urine Ketones Urine Occult Blood Urine Nitrite Urine Bilirubin Urine Urobilinogen Ur Leukocyte Esterase Stool Occult Blood Blood Type A Positive Antibody Screen Negative Crossmatch See Detail Discharge Plan Discharge Disposition: Home, Self-Care Condition: Good Discharge Medications: Continued atorvastatin 20 mg tablet 20 mg PO DAILY clopidogrel 75 mg tablet 75 mg PO DAILY levothyroxine 100 mcg tablet 100 mcg PO DAILY omeprazole 40 mg capsule,delayed release(DR/EC) 40 mg PO BID tizanidine 4 mg tablet 4 mg PO BEDTIME aspirin [Adult Low Dose Aspirin] 81 mg tablet,delayed release (DR/EC) 81 mg PO DAILY omega 9-yls-hur-fish oil [Fish Oil] 1,000 mg (120 mg-180 mg) capsule 1 cap PO TID multivitamin [Daily Multi-Vitamin] Tablet 1 tab PO DAILY Activity: increase activity as tolerated Diet: regular diet Patient Instructions: Iron Rich Diet (DC), Iron Deficiency Anemia (GEN) Forms: Portal Instructions Follow Up Appointments: Liliana Evans. 2023 @ 1:45, Hitesh Poe. 2023 @ 10:30 Discharge Date/Time: 05/01/23 09:54
[2023-05-01 09:17] LABS: Bacteria Urine NONE SEEN #/HPF (NONE SEEN); RBC Urine NONE SEEN #/HPF (0-2); WBC Urine NONE SEEN #/HPF (NONE SEEN)
[2023-05-01 09:18] LABS: Mucus Urine NONE SEEN (NONE SEEN); Squamous Epithelial Cell Urine RARE #/LPF (NONE/RARE)
--- NOTE | 2023-05-01 10:02 | CM.NOTE ---
Rounds made with Dr. Manning. Plan for discharge today.
[2023-05-02 08:13] LABS: Haptoglobin 51 mg/dL (34-355)
--- NOTE | 2023-05-06 14:42 | CM.DCFOLLOWU ---
1st attempt discharge follow up call made by Laury Mooney on 05/06/23, no answer
== END 2023-05-01 09:54 | disposition home or self-care (01) ==
LOC: ER 12:58 → ICU 13:31
PROVIDERS: Internal Medicine Hematology & Oncology; Admitting Provider Family Medicine; Emergency Provider Emergency Medicine; PCP Internal Medicine; Visit Provider Family Medicine
DX: D50.9 Iron deficiency anemia, unspecified (principal); D69.6 Thrombocytopenia, unspecified; D70.9 Neutropenia, unspecified; E03.9 Hypothyroidism, unspecified; K74.60 Unspecified cirrhosis of liver; K21.9 Gastro-esophageal reflux disease without esophagitis; M19.90 Unspecified osteoarthritis, unspecified site; K75.81 Nonalcoholic steatohepatitis (NASH); Z95.5 Presence of coronary angioplasty implant and graft; Z79.82 Long term (current) use of aspirin; Z79.890 Hormone replacement therapy; Z79.899 Other long term (current) drug therapy; I25.10 Atherosclerotic heart disease of native coronary artery without angina pectoris
CPT/HCPCS: 36415; 36430; 71045; 80048; 80053; 80076; 81001; 82607; 82728; 82746; 83010; 83540; 83615; 83880; 84443; 84484; 85007; 85025; 85027; 85610; 85652; 85730; 86140; 86850; 86900; 86901; 93005; 94761; 96365; 96375; 99285; G0328; G0378; J1756; J1940; P9016

== ENCOUNTER 2023-05-22 07:25 | Outpatient (RCR) | payer MEDICARE, OTHER, SELFPAY ==
[2023-05-15 13:57] VITALS: BP 127/66; PULSE 66; RESP 18; TEMP 36.6; O2SAT 97
[2023-05-15] MEDS: FERUMOXYTOL 510 MG in 0.9 % SODIUM CHLORIDE 100 ML 234 MG IV (14:14)
--- NOTE | 2023-05-15 14:26 | PC.NURSE ---
1357: Pt. to [facility] amb. Seated in recliner. VSS. #24 gauge IV initiated to left hand on second attempt per. MARISOL Bray. Flushes easily without redness or edema. Pt. tolerated with min. c/o discomfort. IV Feraheme initiated at this time. Pt. denies needs or c/o.
--- NOTE | 2023-05-15 14:54 | PC.NURSE ---
1444: IV Emre completed at this time. Pt. tolerated well. IV d/c'd, pressure to site. 1445: Pt. d/c'd amb. to home.
[2023-05-22 14:00] VITALS: BP 132/76; PULSE 65; RESP 16; O2SAT 97
[2023-05-22] MEDS: FERUMOXYTOL 510 MG in 0.9 % SODIUM CHLORIDE 100 ML 234 MG IV (14:12)
--- NOTE | 2023-05-22 14:17 | PC.NURSE ---
Patient is here for feraheme infusion. He denies any concerns or complaints. IV started in his right hand with good blood return. He denies any issues or concerns at this time.
== END 2023-05-22 14:48 | disposition home or self-care (01) ==
LOC: INF 07:25
PROVIDERS: PCP Internal Medicine; Visit Provider Internal Medicine Hematology & Oncology
DX: D50.9 Iron deficiency anemia, unspecified (principal); D64.9 Anemia, unspecified; K90.9 Intestinal malabsorption, unspecified; D72.819 Decreased white blood cell count, unspecified; D69.6 Thrombocytopenia, unspecified; I25.10 Atherosclerotic heart disease of native coronary artery without angina pectoris
CPT/HCPCS: 96365; G0463; Q0138

== ENCOUNTER 2023-06-28 10:30 | Outpatient (OUT) | payer MEDICARE, OTHER, SELFPAY ==
[2023-06-28 10:48] LABS: Basophils Percent Auto 0.8 % (0.2-2.0); Eosinophils Absolute Auto 0.2 10^3/uL (0.0-0.7); Eosinophils Percent Auto 6.2 % (0.9-7.0); Hematocrit 37.6 % (42.0-54.0); Hemoglobin 11.3 g/dL (14.0-18.0); Immature Granulocytes Abs Auto 0.01 10^3/uL (0.00-0.03); Immature Granulocytes Pct Auto 0.3 % (0.0-0.5); Lymphocytes Absolute Auto 0.8 10^3/uL (1.2-3.8); Lymphocytes Percent Auto 20.9 % (20.5-60.0); Mean Corpuscular HGB Conc 30.1 g/dL (29.9-35.2); Mean Corpuscular Hemoglobin 28.3 pg (25.9-34.0); Mean Corpuscular Volume 94.2 fL (80.0-94.0); Mean Platelet Volume 10.1 fL (9.5-13.5); Monocytes Absolute Auto 0.4 10^3/uL (0.3-0.8); Monocytes Percent Auto 10.1 % (1.7-12.0); Neutrophils Absolute Auto 2.4 10^3/uL (1.4-6.5); Neutrophils Percent Auto 61.7 % (43.0-75.0); Platelet Count 101 10^3/uL (150-450); Red Blood Count 3.99 10^6/uL (4.70-6.10); White Blood Count 3.9 10^3/uL (4.0-11.0)
--- OUTSIDE RECORDS SUMMARY | 2023-06-28 10:50 | XMS_ITS | CCD ---
Author Organization [facility] Care Team Providers Care Helmet Binder Name Role Phone Zahler, Hardeep Unavailable Unavailable Zahler, Hardeep Unavailable Unavailable Rosie Hardeep Unavailable Unavailable FRANTZ CONLEY Unavailable Unavailable Zahler, Hardeep Unavailable Unavailable Zahler, Hardeep Unavailable Unavailable Rosie Hardeep Unavailable Unavailable FRANTZ CONLEY Unavailable Unavailable INDIA ANDREA Admitting Unavailable SRINIVAS POLO Attending Unavailable FARNTZ TENORIO Referring Unavailable FRANTZ CONLEY Primary Care Unavailable JOSIAH SCHAFER Admitting Unavailable JOSIAH SCHAFER Attending Unavailable FRANTZ CONLEY Referring Unavailable FRANTZ CONLEY Primary Care Unavailable Frantz Conley MD Primary Care Provider SHANTANU MARIE Consulting Unavailable FRANTZ CONLEY Primary Care Unavailable HELENA BARRERA Admitting Unavailable HELENA BARRERA Attending Unavailable Mick Branch Unavailable DR FRANTZ CONLEY Primary Care Unavailable DR PANKAJ FRAGOSO Admitting Unavailable NKECHI, DR STEPHEN Rasheed Consulting Unavailable RICHMOND, DR LIRA Attending Unavailable HERMES MITCHELL Consulting Unavailable KEILY RENTERIA Attending Unavailable DR Arthur López Consulting Unavailable DR FRANTZ CONLEY Primary Care Unavailable KEILY RENTERIA Admitting Unavailable HERMES MITCHELL Consulting Unavailable KEILY RENTERIA Consulting Unavailable SUKH CROFT Consulting Unavailable DR FRANTZ CONLEY Primary Care Unavailable JARVIS, DR LANDRY Admitting Unavailable JARVIS, DR LANDRY Attending Unavailable DR FRANTZ CONLEY Consulting Unavailable MICK BRANCH Attending Unavailable MICK BRANCH Consulting Unavailable JARVIS, DR LANDRY Primary Care Unavailable MICK BRANCH Admitting Unavailable MOE, DR CARVAJAL Admitting Unavailable ELTAHAWDR KARL Chiu Attending Unavailable MOE, DR CARVAJAL Consulting Unavailable DR FRANTZ CONLEY Primary Care Unavailable LIBBY Conley Primary Care Provider [phone] MD Mick Branch Attending Provider [phone] LIBBY Conley Attending Provider LIBBY Conley Primary Care Provider LIBBY Conley Referring Provider MD Zoila Castorena Attending Provider [phone] MD Mick Branch Attending Provider [phone] ARABELLA MURPHY Attending Unavailable MD Jose Manning Attending Provider Frantz Conley MD Primary Care Provider [phone] Frantz Conley MD Unavailable [phone] FRANTZ CONLEY Attending Unavailable FRANTZ CONLEY Attending Unavailable FRANTZ CONLEY Attending Unavailable MD Jose Manning Attending Provider Jarvis, LIBBY Landry Primary Care Provider LIBBY Conley Attending Provider Mick Branch Admitting Unavailable Mick Branch Attending Unavailable Frantz Conley Primary Care Unavailable Frantz Conley Primary Care Unavailable Frantz Conley Attending Unavailable Frantz Conley Admitting Unavailable Frantz Conley Referring Unavailable Zoila Castorena Admitting Unavailable Zoila Castorena Attending Unavailable Frantz Conley Primary Care Unavailable Jose Manning Admitting Unavailable Jose Manning Attending Unavailable Frantz Conley MD Primary Care Provider CRESCENCIO MARIN Attending Unavailable FRANTZ CONLEY Primary Care Unavailable CRESCENCIO MARIN Referring Unavailable FRANTZ CONLEY Primary Care Unavailable Allergies Allergy Classification Reported Allergen(s) Allergy Type Date of Onset Reaction(s) Facility (1 source) ALLERGIES NOT ON FILE; Translations: [ALLERGIES NOT ON FILE] Propensity to adverse reactions (disorder) [facility] Repository Medications Current Medications Medication Drug Class(es) Dates Sig (Normalized) Sig (Original) aspirin 81 mg delayed release oral tablet (12 sources) Platelet Aggregation Inhibitor, Nonsteroidal Anti-inflammatory Drug Start: 04-26-2021 take 81 mg by mouth once daily in the morning Aspirin Active 81 MG PO Every morning April 26, 2021 1:00am take 1 tablet by mouth once emma y aspirin 81 MG chewable tablet Take 81 mg by mouth daily 0 Active atorvastatin 20 mg oral tablet (14 sources) HMG-CoA Reductase Inhibitor Start: 04-26-2021 take 1 tablet by mouth once daily atorvastatin (Lipitor) 20 mg tablet Take 1 tablet (20 mg) by mouth once daily. 0 02/21/2023 Active clopidogrel 75 mg oral tablet (15 sources) P2Y12 Platelet Inhibitor Start: 04-05-2023 take 1 tablet by mouth once daily clopidogrel (Plavix) 75 mg tablet Take 1 tablet (75 mg) by mouth once daily. 0 04/05/2023 Active Start: 08-22-2021 End: 08-17-2021 take 1 tablet by mouth once daily clopidogrel (PLAVIX) 75 MG tablet Take 1 tablet by mouth daily 30 tablet 3 08/22/2021 08/17/2021 Discontinued (REORDER) Start: 08-22-2021 take 1 tablet by lakesha once daily clopidogrel (PLAVIX) 75 MG tablet Take 1 tablet by mouth daily 30 tablet 3 08/22/2021 Active Start: 04-26-2021 End: 08-17-2021 take 75 mg by mouth once daily in the morning Clopidogrel Active 75 MG PO Every morning April 26, 2021 1:00am docosahexaenoic acid 120 mg / eicosapentaenoic acid 180 mg oral capsule (2 sources) take 1 capsule by mo uth once daily fish oil concentrate (Hague-3) 120-180 mg capsule Take 1 capsule (1,000 mg) by mouth once daily. 0 Active take 1 capsule by mouth three ti mes daily Hague-3 Fatty Acids (FISH OIL) 1000 MG CAPS Take 1,000 mg by mouth 3 times daily 0 Active Fish Oils (3 sources) Fish Oil 1000 MG DAILY Active levothyroxine sodium 0.088 mg oral tablet (14 sources) l-Thyroxin e Start: 05-14-2023 take 1 tablet by mouth once daily before mealtime levothyroxine (Synthroid, Levoxyl) 88 mcg tablet Take 1 tablet (88 mcg) by mouth once daily in the morning. Take before meals. Take on an empty stomach. 0 05/14/2023 Active Start: 04-26-2021 take 100 ug by mouth once daily in the morning Levothyroxine Active 100 MCG PO Every morning April 26, 2021 1:00am take 1 tablet by lakesha th once daily in the morning Synthroid 100 MCG 1 tablet in the morning on an empty stomach Orally Once a day Active meclizine hydrochloride 25 mg oral tablet (1 source) Antiemetic take 1 tablet by mouth every twenty-four hours Meclizine HCl 25 MG 1 tablet Orally once a day Active Multiple Vitamins-Minerals (ONE DAILY ADULTS 50+ PO) (3 sources) take 1 tablet by mouth once daily Multiple Vitamins-Minerals (ONE DAILY ADULTS 50+ PO) Take 1 tablet by mouth 1 (one) time each day. 0 Active Multiple Vitamins-Minerals (THERAPEUTIC MULTIVITAMIN-MINERALS) tablet (1 source) take 1 tablet by mouth once daily Multiple Vitamins-Minerals (THERAPEUTIC MULTIVITAMIN-MINERALS ) tablet Take 1 tablet by mouth daily 0 Active Multivitamin preparation (8 sources) Start: 04-26-2021 take 1 tablet by mouth once daily in the morning Multivitamin Active 1 TAB PO Every morning April 26, 2021 12:00am Start: 04-26-2021 take 1 tablet by lakesha th once daily in the morning Multivitamin Active 1 TAB PO Every morning April 26, 2021 1:00am take 1 tablet by lakesha th once daily Multivitamin - 1 tablet Orally Once a day Active multivitamin with minerals tablet (1 source) take 1 tablet by mouth once daily multivitamin with minerals tablet Take 1 tablet by mouth once daily. 0 Active Hague 2-Jfd-Ujn-Fish Oil (Fish Oil) 1,000 mg (120 mg-180 mg) Capsule (5 sources) Start: 04-26-2021 take 1 capsule by mouth three times daily Hague 7-Ncr-Lbl-Fish Oil (Fish Oil) 1,000 mg (120 mg-180 mg) Capsule Active 1 CAP PO Three times daily April 26, 2021 12:00am Start: 04-26-2021 take 1 capsule by mo vah three times daily Hague 0-Vlp-Viv-Fish Oil (Fish Oil) 1,000 mg (120 mg-180 mg) Capsule Active 1 CAP PO Three times daily April 26, 2021 1:00am Hague-3 Fatty Acids (Fish Oil) 1000 MG capsule delayed-release (3 sources) Start: 09-13-2014 take 1 capsule by mouth once daily Hague-3 Fatty Acids (Fish Oil) 1000 MG capsule delayed-release Take 1 capsule by mouth 1 (one) time each day. 0 09/13/2014 Active omeprazole 40 mg delayed release oral capsule (13 sources) Proton Pump Inhibitor Start: 04-26-2021 End: 01-09-2024 take 1 capsule by mouth twice daily omeprazole (PriLOSEC) [address] capsule Take 1 capsule (40 mg) by mouth 2 times a day. 0 01/09/2023 Active take 1 capsule by mouth once jamel ly omeprazole (PRILOSEC) 40 MG delayed release capsule Take 40 mg by mouth daily 0 Active ondansetron (ZOFRAN-ODT) disintegrating tablet 4 mg (1 source) Start: 08-16-2021 ondansetron (ZOFRAN-ODT) disintegrating tablet 4 mg tiZANidine 4 mg oral tablet (14 sources) Central alpha-2 Adrenergic Agonist Start: 04-18-2023 tiZANidine (Zanaflex ) 4 mg tablet 1 tablet (4 mg) as needed at bedtime. 0 04/18/2023 Active Start: 04-26-2021 End: 08-08-2022 take 4 mg by mouth once daily at bedtime Tizanidine Discontinued 4 MG PO Daily at bedtime April 26, 2021 1:00am August 08, 2022 1:55pm take 1 tablet by lakesha th twice daily as needed tiZANidine HCl 4 MG 1 tablet as needed Orally bid prn Active take 1 tablet by lakesha th every six hours as needed tiZANidine (ZANAFLEX) 4 MG tablet Take 4 mg by mouth every 6 hours as needed 0 Active Completed/Discontinued Medications Medication Drug Class(es) Dates Sig (Normalized) Sig (Original) acetaminophen 500 mg oral tablet (1 source) Start: 08-16-2021 take 1 dose by mouth three times daily 1,000 mg, Oral, EVERY 8 HOURS SCHEDULED (3 times per day), First dose on Sat08/16/21 at 2200, Until Discontinued Maximum dose of acetaminophen is 4000 mg from all sources in 24 hours. acetaminophen 325 mg / HYDROcodone bitartrate 5 mg oral tablet (5 sources) Opioid Agonist Start: 05-10-2021 End: 09-19-2021 take 1 tablet by mouth every six hours Hydrocodone-Acetami nophen Discontinued 1 TAB PO Q6H 30 7 May 10, 2021 September 19, 2021 11:42am pantoprazole 40 mg delayed release oral tablet (1 source) Proton Pump Inhibitor Start: 08-17-2021 take 40 mg by mouth once daily before breakfast 40 mg, Oral, DAILY BEFORE BREAKFAST, First dose on Sat08/17/21 at 0730, Until Discontinued Do not crush or break. Substituted for Omeprazole (PRILOSEC). polyethylene glycol 3350 99703 mg powder for oral solution (1 source) Osmotic Laxative Start: 08-16-2021 17 g, Oral, DAILY, First dose on Sat08/16/21 at 2030, Until Discontinued 1000 ml sodium chloride 9 mg/ml injection (4 sources) Start: 08-16-2021 End: 08-17-2021 0.9 % sodium chloride infusion Start: 08-16-2021 IntraVENous, a t 5-250 mL/hr, PRN, if patient receiving piggyback infusions and maintenance fluids are not ordered OR KVO fluids to protect IV site / prevent frequent line interruptions/ long duration, Starting on Sat08/16/21 at 2015 For piggyback infusion, administer at same rate as piggyback for a total of 25 mL. Enter 25 mL into dose field and piggyback rate into rate field of order. If piggyback is infusing at a rate less than 100 mL/hr, enter 25 mL into dose field and 100 mL/hr into rate field of order. For KVO fluids, enter rate of 20 mL/hr or less into rate field of order. Start: 08-16-2021 take 1 dose intraven ously twice daily 5-40 mL, IntraVENous, EVERY 12 HOURS SCHEDULED (2 times per day), First dose on Sat08/16/21 at 2100, Until Discontinued For Line Patency: Peripheral IV = 5 mL; Midline or Central Line = 10 mL/lumen. If following IV push medication, administer flush at same rate as the IV push. Flush volume is determined by type of infusion therapy being given. For non-viscous solutions use: Peripheral IV = 5 mL Midline or Central Line = 10 mL/lumen For viscous solutions (i.e. blood components, parenteral nutrition, contrast media, or after obtaining blood sample) use: Peripheral IV = 10 mL Midline or Central Line = 20 mL/lumen Start: 08-16-2021 take 5-40 mL intrave nously once as needed 5-40 mL, IntraVENous, PRN, Starting on Sat08/16/21 at 2015, Until Discontinued, Line Care, After every IV line use For Line Patency: Peripheral IV = 5 mL; Midline or Central Line = 10 mL/lumen. If following IV push medication, administer flush at same rate as the IV push. Flush volume is determined by type of infusion therapy being given. For non-viscous solutions use: Peripheral IV = 5 mL Midline or Central Line = 10 mL/lumen For viscous solutions (i.e. blood components, parenteral nutrition, contrast media, or after obtaining blood sample) use: Peripheral IV = 10 mL Midline or Central Line = 20 mL/lumen therapeutic multivitamin-minerals 1 tablet (1 source) Start: 08-16-2021 take 1 tablet by mouth once daily 1 tablet, Oral, DAILY, First dose on Sat08/16/21 at 2030, Until Discontinued Problems Active Problems Problem Classification Problem Date Documented Date Episodic/Chronic Acute cerebrovascular disease (5 sources) Hemorrhage into subarachnoid space of neuraxis; Translations: [Nontraumatic subarachnoid hemorrhage, unspecified] Onset: 08-16-2021 Chronic Anxiety disorders (3 sources) Anxiety; Translations: [Other specified anxiety disorders] Onset: 08-13-2022 08-13-2022 Chronic Aortic; peripheral; and visceral artery aneurysms (13 sources) Thoracic aortic aneurysm, without rupture; Translations: [Aortic ectasia, unspecified site] Onset: 11-08-2021 Chronic Biliary tract disease (15 sources) Calculus of gallbladder without cholecystitis without obstruction; Translations: [Calculus of gallbladder with cholecystitis] Onset: 02-07-2021 05-10-2021 Episodic Cardiac dysrhythmias (12 sources) Ventricular premature depolarization; Translations: [Multiple premature ventricular complexes] Onset: 08-13-2022 Chronic Chronic kidney disease (2 sources) Chronic kidney disease; Translations: [Chronic kidney disease, stage 3 unspecified] Onset: 09-17-2022 Coronary atherosclerosis and other heart disease (10 sources) Old myocardial infarction; Translations: [Atherosclerotic heart disease of [place] coronary artery without angina pectoris] Onset: 02-07-2021 Chronic Coronary atherosclerosis and other heart disease (3 sources) Presence of coronary angioplasty implant and graft; Translations: [PRESENCE COR ANGPLSTY IMPLANT AND GRAFT] Onset: 02-07-2021 Episodic Deficiency and other anemia (9 sources) Acquired pancytopenia; Translations: [Other pancytopenia] Onset: 04-22-2023 08-08-2022 Chronic Deficiency and other anemia (3 sources) Other pancytopenia; Translations: [Other pancytopenia] Onset: 06-05-2023 09-28-2022 Chronic Deficiency and other anemia (6 sources) Iron deficiency anemia; Translations: [Iron deficiency anemia, unspecified] Onset: 05-08-2023 05-08-2023 Episodic Deficiency and other anemia (2 sources) Iron deficiency anemia, unspecified; Translations: [Iron deficiency anemia, unspecified] Onset: 06-20-2023 Episodic Disorders of lipid metabolism (7 sources) Mixed hyperlipidemia; Translations: [Hypertriglyceridemia] Onset: 08-13-2022 Chronic Diverticulosis and diverticulitis (3 sources) Diverticulosis of colon; Translations: [Diverticulosis of large intestine without perforation or abscess without bleeding] Onset: 08-13-2022 08-13-2022 Chronic E Codes: Struck by; against (1 source) Striking against or struck by other objects, initial encounter; Translations: [STRIKING AGNST/STRUCK OTH OBJ INIT] Onset: 08-18-2021 Episodic Esophageal disorders (6 sources) Gastroesophageal reflux disease; Translations: [Gastro-esophageal reflux disease without esophagitis] Onset: 08-13-2022 08-13-2022 Chronic Essential hypertension (5 sources) Essential (primary) hypertension; Translations: [Benign essential hypertension] Onset: 09-17-2022 Chronic Hepatitis (11 sources) Nonalcoholic steatohepatitis; Translations: [Nonalcoholic steatohepatitis (PLASCENCIA)] Onset: 09-13-2021 Resolved: 09-13-2021 Chronic Hypertension with complications and secondary hypertension (5 sources) Hypertensive heart and chronic kidney disease with heart failure and stage 1 through stage 4 chronic kidney disease, or unspecified chronic kidney disease; Translations: [Hypertensive heart AND chronic kidney disease with congestive heart failure] Onset: 09-17-2022 Chronic Intracranial injury (5 sources) Subarachnoid hemorrhage due to traumatic injury; Translations: [Traumatic subarachnoid hemorrhage without loss of consciousness, initial encounter] Onset: 08-18-2021 Episodic Miscellaneous mental health disorders (3 sources) Chronic insomnia; Translations: [Psychophysiologic insomnia] Onset: 08-13-2022 08-13-2022 Chronic Nutritional deficiencies (3 sources) Vitamin D deficiency; Translations: [Vitamin D deficiency, unspecified] Onset: 08-13-2022 08-13-2022 Chronic Open wounds of head; neck; and trunk (3 sources) Facial laceration ; Translations: [Laceration without foreign body of other part of head, initial encounter] Onset: 08-18-2021 Episodic Other aftercare (1 source) 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; Translations: [ASSISTED CURRENT USE OF ASPIRIN] Onset: 08-18-2021 Episodic Other aftercare (1 source) [facility] (current) use of antithrombotics/antipl atelets; Translations: [[employer]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 ANTITHROMBOT/ANTIPLATL ETS] Onset: 08-18-2021 Episodic Other injuries and conditions due to external causes (3 sources) Unspecified injury of head, initial encounter; Translations: [UNSPECIFIED INJURY HEAD INITIAL ENC] Onset: 08-16-2021 Episodic Other liver diseases (7 sources) Cirrhosis of liver; Translations: [Other cirrhosis of liver] Onset: 08-13-2022 08-13-2022 Chronic Other liver diseases (10 sources) Unspecified cirrhosis of liver; Translations: [Cirrhotic] Onset: 07-11-2021 Resolved: 07-11-2021 Chronic Other liver diseases (2 sources) Non-alcoholic fatty liver; Translations: [Fatty (change of) liver, not elsewhere classified] Chronic Other liver diseases (8 sources) Fatty (change of) liver, not elsewhere classified; Translations: [Other chronic nonalcoholic liver disease] Onset: 09-13-2021 Resolved: 09-13-2021 Chronic Other liver diseases (1 source) Other cirrhosis of liver Onset: 09-13-2021 Resolved: 09-13-2021 Chronic Other nervous system disorders (3 sources) Chronic pain; Translations: [Other chronic pain] Onset: 08-13-2022 08-13-2022 Chronic Screening and history of mental health and substance abuse codes (5 sources) Personal history of nicotine dependence; Translations: [Ex-cigarette smoker] Onset: 08-18-2021 06-20-2023 Episodic Superficial injury; contusion (1 source) Contusion of other part of head, initial encounter; Translations: [CONTUS OTH PRT HEAD INITIAL ENCNTR] Onset: 08-18-2021 Episodic Thyroid disorders (4 sources) Hypothyroidism, unspecified; Translations: [Acquired hypothyroidism] Onset: 08-18-2021 08-13-2022 Chronic Unclassified (4 sources) CONTACT W/AND (SUSP) EXPOS COVID-19; Translations: [CONTACT W/AND (SUSP) EXPOS COVID-19] Onset: 04-10-2021 Unclassified (1 source) COUGH, UNSPECIFIED; Translations: [COUGH, UNSPECIFIED] Onset: 04-10-2021 Past or Other Problems Problem Classification Problem Date Documented Date Episodic/Chronic Abdominal pain (4 sources) Right upper quadrant pain; Translations: [Right upper quadrant pain] Onset: 02-07-2021 08-13-2022 Episodic Mycoses (3 sources) Onychomycosis due to dermatophyte ; Translations: [Tinea unguium] Onset: 08-13-2022 08-13-2022 Episodic Other acquired deformities (3 sources) Spondylolysis of cervical spine; Translations: [Spondylolysis, cervical region] Onset: 08-13-2022 08-13-2022 Episodic Other aftercare (1 source) Other [facility] (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 therapy; Translations: [OTH ASSISTED CURRENT DRUG THERAPY] Onset: 02-07-2021 Episodic Other connective tissue disease (3 sources) Cramp; Translations: [Cramp and spasm] Onset: 08-13-2022 08-13-2022 Episodic Other disorders of stomach and duodenum (3 sources) Indigestion; Translations: [Functional dyspepsia] Onset: 08-13-2022 08-13-2022 Episodic Other lower respiratory disease (3 sources) Pleurodynia; Translations: [PLEURODYNIA] Onset: 02-03-2021 Episodic Other nervous system disorders (3 sources) Unsteady when standing; Translations: [Unsteadiness on feet] Onset: 08-13-2022 08-13-2022 Episodic Other screening for suspected conditions (not mental disorders or infectious disease) (3 sources) Liver function tests abnormal; Translations: [Other specified abnormal findings of blood chemistry] Onset: 08-13-2022 08-13-2022 Episodic Unclassified (1 source) CONTACT W/AND (SUSP) EXPOS COVID-19; Translations: [CONTACT W/AND (SUSP) EXPOS COVID-19] Onset: 03-01-2021 Unclassified (1 source) Onset: 06-20-2023 06-20-2023 Results Test Name Value Interpretation Reference Range Facility ECG 12 Leadon 06-20-2023 Sinus rhythm, rightw stephanie axis, bigeminal PVCs, anteroseptal infarction pattern age indeterminant, abnormal ECG [facility] Work Phone: US spleenon 06-05-2023 US spleen [facility] [place] [address] Ultrasound Report Signed Patient: Pankaj Payne MR#: [id number] : 1945 Acct:[id number] Age/Sex: 77 / M ADM Date: 06/05/23 Loc: Room: Type: [facility] Attending Dr: Frantz Conley II, MD Ordering Provider: Frantz Conley II, MD Date of Service: 06/05/23 US/US spleen: [id number] Copies to: Frantz Conley II, MD Splenic ultrasound. Reason for exam: Pancytopenia. COMPARISON: CT abdomen and pelvis 10/10/2021. TECHNIQUE: Grayscale and color Doppler images of the spleen were obtained. FINDINGS: Splenomegaly is present measuring 15.5 cm without evidence of lesion or free fluid. US/US spleen IMPRESSION: Splenomegaly. No focal lesion. Impression dictated by: Kartik Claros Jr., D.OKita06/05/2023 12:06 PM Dictation Location: [place] [address] Tech: Demi Weinberg Transcribed By: USMAN 06/05/23 1206 Dictated By: Kartik Claros Jr, DO 06/05/236 Signed By: 06/05/23 1206 [facility] Jamaal 04-30-2023 L Specimen: Received: 05/01/23 Status: SOUT Req Num: [id number] Spec Type: Impression Subm Dr: Markus Renteria DO Tissues: PATHPER Procedures: PATHREVIEW Age/ Patient Sex Location Account Attending Physician Pankaj Payne 77/M LABELL [id number] Jose Manning MD SPEC NUM: [id number] RECD: 05/01/23 STATUS: SOUSukumar REQ NUM: [id number] BIBI: 04/30/[address]: Markus Renteria DO ENTERED: 05/01/[address]: Yue Velasco MD SPEC TYPE: Impression DEPT: MADELEINE Abdi ENTERED BY: [id number] RECV BY: [id number] ORDERED: PATHREVIEW ORDERED: PATHREVIEW Pathologist Review Abnormal CBC for peripheral blood smear review ? - Pancytopenia with mild to moderate leukopenia, moderate lymphocytopenia, moderate monocytopenia, moderate to severe anemia of the mild microcytic type, and mild thrombocytopenia, including few large platelets ? - Mild anisocytosis, including mild microcytosis, moderate hypochromia, occasional target cells, and at least rare polychromatophil, and few ovalocytes and rare schistocytes ? - No overt morphological abnormality of the leukocyte population Comment: ? - Significant monocytopenia does not occur in isolation.? It is a feature of bone marrow failure or replacement, especially for the infiltration by hairy cell leukemia. ? - Glucocorticoid therapy also can cause monocytopenia.? Patient with monocytopenia are particularly susceptible to the infections associated with granuloma formation. ? - The cause of pancytopenia in this elderly male patient is otherwise not clear, but can be very likely due to some kind of bone marrow suppression or hypoplastic marrow, requiring continuous clinical and etiological correlations, including hematology consultation if indicated, and the continues close laboratory follow-ups as appropriate CPT: 77121 Specimen: [id number] Received: 05/01/23 Status: GIOVANA Toney Num: [id number] Spec Type: Impression Subm Dr: Markus Renteria DO Tissues: PATHPER Procedures: PATHREVIEW Patient: Pankaj Payne [id number] (Continued) Specimen: [id number] Received: 05/01/23 (Continued) Signed (signature on file) Naif Arthur MD 05/02/23 0954 Specimen: [id number] Received: 05/01/23 Status: GIOVANA Toney Num: [id number] Spec Type: Impression Subm Dr: Markus Renteria DO Tissues: PATHPER Procedures: PATHREVIEW Patient: Pankaj Payne [id number] (Continued) Specimen: [id number] Received: 05/01/23 (Continued) CBC No results available. Specimen: [id number] Received: 05/01/23 Status: GIOVANA Toney Num: [id number] Spec Type: Impression Subm Dr: Markus Renteria DO Tissues: PATHPER Procedures: PATHREVIEW Patient: Pankaj Payne [id number] (Continued) Signed (signature on file) Naif Arthur MD 05/02/23 0954 [facility] 36 04-05-2023 36 Approving, but needs appt for additional refills. Community [facility] Documentationon 01-17-2023 Documentation [id number] Pankaj Payne 1945 M Date Provider Department [place] [facility]. No family history on file [facility] liver 10-04-2022 [place] [address] Ultrasound Report Signed Patient: Pankaj Payne MR#: [id number] : 1945 Acct:[id number] Age/Sex: 77 / M ADM Date: 10/04/22 Loc: Room: Type: [facility] Attending Dr: Mick Branch MD Ordering Provider: Mick Branch MD Date of Service: 10/04/22 US/US liver: Cirrhosis;NAFLD (nonalcoholic fatty liver disease);PLASCENCIA (non Copies to: Mick Branch MD LIMITED ABDOMINAL ULTRASOUND - liver CLINICAL HISTORY: Cirrhosis and PLASCENCIA. Prior cholecystectomy. COMPARISON: CT 10/10/2021 Evaluation is slightly limited by bowel gas and poor acoustic windows. The gallbladder is surgically absent. No intra- or extrahepatic biliary dilatation is evident. The common duct measures 3 - 4 mm. The liver has a slightly lobulated contour and coarsening of the echotexture. No focal intrahepatic masses are seen. There is appropriate hepatopetal flow within the main portal vein. The visualized portions of the pancreas show no significant sonographic abnormality. Cursory evaluation of the right kidney reveals no hydronephrosis or fluid within Chopra's pouch. There are right renal cysts measuring up to 3.3 x 3.4 x 3.8 cm. US/US liver IMPRESSION: CIRRHOTIC MORPHOLOGY OF THE LIVER. NO BILIARY DILATATION. RIGHT RENAL CYSTS. Impression dictated by: Rosanna Herrera M.D.10/04/2022 11:12 AM Dictation Location: [place] [address] Tech: Elayne Murray Transcribed By: USMAN 10/04/22 111 Dictated By: Rosanna Herrera MD 10/04/22 1108 Signed By: 10/04/22 1112 Normal [facility] Office Visiton 09-17-2022 Follow-up visit [id number] Pankaj Payne 1945 Date Provider Department Center 09/17/2022 120-KATHERINE, ARABELLA BH CARD [facility] No family history on file Level of Service:36228 AR OFFICE/OUTPATIENT ESTABLISHED LOW MDM 20-[address] [facility] Albumin [Mass/volume] in Ser um or PlasmaOrdered By: Zoila Castorena on 08-08-2022 Albumin [Mass/Vol] 3.0 g/dL 2.9-4.4 [facility] Direct [place] 08-08-2022 Polyspecific AHG Negative Normal [facility] Comment on above: Result Comment: PERF ORMED BY: [facility] [address] [place] [place] [address] PATHOLOGIST [employer] ROUND LOGGER DENNISE PATRICK M.D. Folate [Mass/volume] in Seru m or PlasmaOrdered By: Zoila Castorena on 08-08-2022 Folate [Mass/Vol] 40.0 ng/mL >5.9 [facility] Comment on above: Folate reference ran ge: >5.9 ng/mlThe WHO technical consultation on folate and vitamin [id number] has determined that folate concentrations lessthan 4 ng/ml are considered deficient. Haptoglobinon 08-08-2022 Haptoglobin 58 mg/dL Normal 44-215 [facility] Comment on above: Result Comment: PERF ORMED BY: [place] [address] PATHOLOGIST [employer] ROUND LOGGER DENNISE PATRICK M.D. Performed By: #### L DH, [id number], HAPT #### [address] #### SPE #### [facility] , Haptoglobin [Mass/volume] in Serum or PlasmaOrdered By: Zoila Castorena on 08-08-2022 Haptoglobin [Mass/Vol] 58 mg/dL 44-215 [facility] LDH Lactate Dehydrogenaseon 08-08-2022 LDH Lactate Dehydrogenase 221 U/L Normal 140-271 [facility] Comment on above: Performed By: #### L DH, [id number], HAPT #### [place] [address] [place] #### SPE #### [facility] , Lactate dehydrogenase [Enzym atic activity/volume] in Serum or Plasma by Lactate to pyOrdered By: Zoila Castorena on 08-08-2022 LDH Lactate to pyruvate reaction [Catalytic activity/Vol] 221 U/L 140-271 [facility] No Panel InformationOrdered By: Zoila Castorena on 08-08-2022 Protein Electrophoresis M-Jose Not observed g/dL Not Observed [facility] Protein Electrophoresis Note See comment . [facility] Comment on above: Protein electrophore sis scan will follow via computer,mail, or sheep killer delivery.Performed at: [facility] [address] [id number] Director: Charlie Klein PhD, Phone: [phone] Protein Electrophoresis, Ser umon 08-08-2022 Albumin [Mass/Vol] 3.0 g/dL Normal 2.9-4.4 [facility] Comment on above: Performed By: #### L DH, [id number], HAPT #### [place] [address] [place] #### SPE #### [facility] , Albumin/Globulin [Mass ratio] 1.0 {ratio} Normal 0.7-1.7 [facility] Comment on above: Performed By: #### L DH, [id number], HAPT #### [place] [address] [place] #### SPE #### [facility] , Lecbr-0-Hebstdrm 0.2 g/dL Normal 0.0-0.4 [facility] Comment on above: Performed By: #### L DH, [id number], HAPT #### [address] #### SPE #### [facility] , Aievt-5-Htemubow 0.7 g/dL Normal 0.4-1.0 [facility] Comment on above: Performed By: #### L DH, [id number], HAPT #### [place] [address] [place] #### SPE #### [facility] , Beta Globulin 1.2 g/dL Normal 0.7-1.3 [facility] Comment on above: Performed By: #### L DH, [id number], HAPT #### [place] [address] [place] #### SPE #### [facility] , Gamma Globulin 1.0 g/dL Normal 0.4-1.8 [facility] Comment on above: Performed By: #### L DH, [id number], HAPT #### [place] [address] [place] #### SPE #### [facility] , Globulin (S) [Mass/Vol] 3.0 g/dL Normal 2.2-3.9 [facility] Comment on above: Performed By: #### L DH, [id number], HAPT #### [place] [address] [place] #### SPE #### [facility] , M-Jose Not Observed Normal Not Observed [facility] Comment on above: Performed By: #### L DH, [id number], HAPT #### [place] [address] [place] #### SPE #### [facility] , Protein [Mass/Vol] 6.0 g/dL Normal 6.0-8.5 [facility] Comment on above: Performed By: #### L DH, [id number], HAPT #### [place] [address] [place] #### SPE #### [facility] , SPE-Note Normal . [facility] Comment on above: Result Comment: Prot ein electrophoresis scan will follow via computer, mail, or sheep killer delivery. Performed at: [facility] [address] [id number] Mushroom Laborer: Charlie Klein PhD, Phone: [phone] PERFORMED BY: [place] [address] PATHOLOGIST [employer] LOGGER DENNISE PATRICK M.D. Performed By: #### L DH, [id number], HAPT #### [place] [address] [place] #### SPE #### [facility] , Protein [Mass/volume] in Ser um or PlasmaOrdered By: Zoila Castorena on 08-08-2022 Protein [Mass/Vol] 6.0 g/dL 6.0-8.5 [facility] Serum globulin measurement ( mass/volume)Ordered By: Zoila Castorena on 08-08-2022 Globulin (S) [Mass/Vol] 3.0 g/dL 2.2-3.9 [facility] Serum or plasma albumin/glob ulin mass ratioOrdered By: Zoila Castorena on 08-08-2022 Albumin/Globulin [Mass ratio] 1.0 {ratio} 0.7-1.7 [facility] Serum or plasma alpha 1 glob ulin measurement by electrophoresis (mass/volume)Ordered By: Zoila Raffaele on 08-08-2022 Alpha 1 globulin Elph [Mass/Vol] 0.2 g/dL 0.0-0.4 [facility] Serum or plasma alpha 2 glob ulin measurement by electrophoresis (mass/volume)Ordered By: Zoila Castorena on 08-08-2022 Alpha 2 globulin Elph [Mass/Vol] 0.7 g/dL 0.4-1.0 [facility] Serum or plasma beta globuli n measurement by electrophoresis (mass/volume)Ordered By: Zoila Raffaele on 08-08-2022 Beta globulin Elph [Mass/Vol] 1.2 g/dL 0.7-1.3 [facility] Serum or plasma gamma globul in measurement by electrophoresis (mass/volume)Ordered By: Zolia Castorena on 08-08-2022 Gamma globulin Elph [Mass/Vol] 1.0 g/dL 0.4-1.8 [facility] Vit. B12/Folate Profileon Cobalamin (Vitamin B12) [Mass/Vol] 481 pg/mL Normal 180-914 [facility] Comment on above: Performed By: #### L DH, [id number], HAPT #### [place] [address] [place] #### SPE #### [facility] , Folate 40.0 ng/mL Normal >5.9 [facility] Comment on above: Result Comment: Supriya te reference range: >5.9 ng/ml The WHO technical consultation on folate and vitamin b12 deficiencies has determined that folate concentrations less than 4 ng/ml are considered deficient. PERFORMED BY: [place] [address] PATHOLOGIST [employer] LOGGER DENNISE PATRICK M.D. Performed By: #### L DH, [id number], HAPT #### [place] [address] [place] #### SPE #### [facility] , Vitamin B12 ser/plasOrdered By: Zoila Castorena on 08-08-2022 Cobalamin (Vitamin B12) [Mass/Vol] 481 pg/mL [id number] [facility] ECHOCARDIO M/2D COMPLETEon 0 11-08-2021 ECHOCARDIO M/2D COMPLETE Patient: PANKAJ PAYNE Exam Date: 11/08/2021 : 1945 Gender:M Ordering : DR KARL MENON M.D. Admission #: [id number] Family : DR FRANTZ CONLEY M.D. Order #: [id number] CLICK HERE TO VIEW EXAM ECHOCARDIOGRAM REPORT PROCEDURE: CARDIO PULMONARY ECHOCARDIO M/2D COMP INDICATIONS: Aneurysm of thoracic aorta, H/O Stent COMPARISON: None. DESCRIPTION: COMPLETE ECHOCARDIOGRAM Real-time transthoracic echocardiography with 2D, M-mode, spectral and color flow Doppler performed. QUALITY: Technical quality was adequate. 65 180# 130/80 HR 68 LEFT VENTRICLE: Normal chamber size. Proximal septal hypertrophy (sigmoid septum). LV EF: Global left ventricular systolic function is normal. Visual estimation of left ventricular ejection fraction is 65%. No regional wall motion abnormalities. DIASTOLIC: Diastolic function is indeterminate. ATRIAL SEPTUM: Inadequately seen. LEFT ATRIUM: Mild dilatation. RIGHT ATRIUM: Normal chamber size. RIGHT VENTRICLE: Mild dilatation. Normal right ventricular systolic function. TRICUSPID VALVE: Normal mobility and thickness. Trivial regurgitation. No evidence of pulmonary hypertension. RVSP 18 mmHg. There appears to be significant tricuspid annular calcification. The tricuspid valve appears to open well. MITRAL VALVE: Normal mobility and thickness. No evidence of mitral valve stenosis. Mild mitral annular calcification. Trivial mitral regurgitation. AORTIC VALVE: Normal trileaflet appearance. No evidence of aortic valve stenosis. Mild focal aortic valve sclerosis. No aortic regurgitation. AORTIC ROOT: Mild ascending aorta enlargement. Poorly visualized aortic arch. PULMONIC VALVE: Normal thickness and mobility. No stenosis. Trivial regurgitation. PERICARDIUM: No evidence of pericardial effusion. IVC: Not well visualized. CONCLUSION: Global left ventricular systolic function is normal; visually estimated ejection fraction is 60 to 65%. No regional wall motion abnormalities. Diastolic function is indeterminate. The left atrium is mildly dilated. The right ventricle is mildly dilated with normal systolic function. No significant valvular abnormalities. Mild ascending aortic enlargement. Adult Echocardiography Procedure Report Left Ventricle Left Atrium Mitral Valve Right Ventricle Aorta Aortic Valve Peak Velocity (Antegrade Flow): 1.68 m/s AoV Area (Peak Tara): 2.73 cm2, 2.73 cm2 Peak Velocity(Antegrade Flow): 1.68 m/s Peak Gradient(Antegrade Flow): 11.23 mm[Hg] Tricuspid Valve TV Mean Gradient: 2.07 mm[Hg] Peak Velocity (Regurgitant Flow): 1.96 m/s Peak Velocity: 1.20 m/s, 1.20 m/s Pulmonic Valve PV Max Tara (0.6 - 0.9 m per sec): 1.11 m/s PV Max Gradient: 4.96 mm[Hg] Right Atrium Dictated by: Karl Menon M.D. on 11/08/2021 at 16:52 Approved by: Karl Menon M.D. on 11/08/2021 at 16:55 Normal [facility] Creatinine and Glomerular fi ltration rate.predicted panel (S/P/Bld)Ordered By: Frantz Conley on 10-10-2021 Creatinine [Mass/Vol] 1.11 mg/dL 0.64-1.27 [facility] Estimated glomerular filtrat ion rate (GFR) non- AmericanOrdered By: Frantz Conley on 10-10-2021 GFR/1.73 sq M.predicted among non-blacks MDRD (S/P/Bld) [Vol rate/Area] > 60 mL/Min [facility] No Panel InformationOrdered By: Frantz Conley on 10-10-2021 Estimated GFR () > 60 mL/Min [facility] Comment on above: GFR estimated refere nce range: According to KDOQI guidelines, <60 ml/min/1.73m2 is sufficient to diagnose a patient with chronic kidney disease. Pharmacy Creatinine Clearance (Chem N/A [facility] Serum or plasma urea nitroge n measurement (mass/volume)Ordered By: Frantz Conley on 10-10-2021 Urea nitrogen [Mass/Vol] 16 mg/dL 12-15 [facility] COVID-19 Positive/NegativeOr dered By: Mick Branch on 09-15-2021 SARS-CoV-2 (COVID-19) N gene GÓMEZ+probe Ql (Resp) Negative Negative [facility] Comment on above: Testing for SARS-CoV -2 by RT-PCR This test was developed and its performance characteristics determined by [employer] and validated at the [facility]. This test has not been FDA cleared or approved. This test has been authorized by FDA under an Emergency Use Authorization (EUA). This test has been validated in accordance with the FDA's Guidance Document (Policy for Diagnostics Testing in Laboratories Certified to Perform High Complexity Testing under CLIA prior to Emergency Use Authorization for Coronavirus Disease-2019 during the Public Health Emergency) issued on June 25, 2019. This test is only authorized for the duration of time the declaration that circumstances exist justifying the authorization of the emergency use of in vitro diagnostic tests for detection of SARS-CoV-2 virus and/or diagnosis of COVID-19 infection under section 564(b)(1) of the Act, 21 U.S.C. 360bbb-3(b)(1), unless the authorization is terminated or revoked sooner. Basic Metab w/rfx MGon 08-17 (cont.) Normal [facility] Comment on above: Result Comment: Aver age GFR for 70 or more years old: 75 mL/min/1.73sq m Chronic Kidney Disease: <60 mL/min/1.73sq m Kidney failure: <15 mL/min/1.73sq m eGFR calculated using average adult body mass. Additional eGFR calculator available at: http://www.Function Space.[employer]ob[employer] Planet/multiple_crcl_2011.htm Performed By: #### C ITA, BMPX #### [facility] [address] [place] [id number] Mushroom Laborer: Tony Yanez MD Anion gap [Moles/Vol] 9 mmol/L Normal 9-17 [facility] Comment on above: Performed By: #### C DP, BMPX #### [facility] Note [address] [place] [phone] Mushroom Laborer: Tony Yanez MD Calcium [Mass/Vol] 9.0 mg/dL Normal 8.6-10.4 [facility] Comment on above: Performed By: #### C DP, BMPX #### [address] [address] Mushroom Laborer: Tony Yanez MD Chloride [Moles/Vol] 107 mmol/L Normal 98-107 [facility] Comment on above: Performed By: #### C DP, BMPX #### [address] [address] Mushroom Laborer: Tony Yanez MD CO2 [Moles/Vol] 23 mmol/L Normal 20-31 [facility] Comment on above: Performed By: #### C DP, BMPX #### [address] [address] Mushroom Laborer: Tony Yanez MD Creatinine [Mass/Vol] 0.83 mg/dL Normal 0.70-1.20 [facility] Comment on above: Performed By: #### C DP, BMPX #### [address] [address] Mushroom Laborer: Tony Yanez MD GFR, Amer >60 Normal >60 [facility] Comment on above: Performed By: #### C DP, BMPX #### [address] [address] Mushroom Laborer: Tony Yanez MD GFR,non Amer >60 Normal >60 [facility] Comment on above: Performed By: #### C DP, BMPX #### [address] [address] Mushroom Laborer: Tony Yanez MD Glucose [Mass/Vol] 91 mg/dL Normal 70-99 [facility] Comment on above: Performed By: #### C DP, BMPX #### [address] [address] Mushroom Laborer: Tony Yanez MD Potassium [Moles/Vol] 4.3 mmol/L Normal 3.7-5.3 [facility] Comment on above: Performed By: #### C DP, BMPX #### [facility] [address] [place], [place] [phone] Mushroom Laborer: Tony Yanez MD Sodium [Moles/Vol] 139 mmol/L Normal 135-144 [facility] Comment on above: Performed By: #### C DP, BMPX #### [facility] [address] [place], [place] [phone] Mushroom Laborer: Tony Yanez MD Urea nitrogen [Mass/Vol] 17 mg/dL Normal 8-23 [facility] Comment on above: Performed By: #### C DP, BMPX #### [facility] [address] [place] [address] [phone] Mushroom Laborer: Tony Yanez MD Basic Metabolic Panel w/ Ref nehemias to on 08-17-2021 Anion gap [Moles/Vol] 9 mmol/L 9 - 17 mmol/L [facility] Calcium [Mass/Vol] 9.0 mg/dL 8.6 - 10. 4 mg/dL [facility] Chloride [Moles/Vol] 107 mmol/L 98 - 10 7 mmol/L [facility] CO2 [Moles/Vol] 23 mmol/L 20 - 31 mmol/L [facility] Creatinine [Mass/Vol] 0.83 mg/dL 0.70 - 1.20 mg/dL [facility] Bio GFR >60 >60 mL/min [facility] Bio GFR Non- >60 >60 mL/min [facility] GFR/1.73 sq M.predicted MDRD (S/P/Bld) [Vol rate/Area] [facility] Comment on above: Average GFR for 70 o r more years old: 75 mL/min/1.73sq m Chronic Kidney Disease: <60 mL/min/1.73sq m Kidney failure: <15 mL/min/1.73sq m eGFR calculated using average adult body mass. Additional eGFR calculator available at: http://www.[employer] Space.[employer]ob[employer] Planet/multiple_crcl_2012.htm Glucose [Mass/Vol] 91 mg/dL 70 - 99 mg/dL [facility] Potassium [Moles/Vol] 4.3 mmol/L 3.7 - 5.3 mmol/L [facility] Sodium [Moles/Vol] 139 mmol/L 135 - 144 mmol/L [facility] Urea nitrogen (BldV) [Mass/Vol] 17 mg/dL 8 - 23 mg/dL [facility] CBC with Auto Differentialon 08-17-2021 Absolute Eos # 0.11 [facility] Absolute Immature Granulocyte <0.03 [facility] Absolute Lymph # 1.10 [facility] Absolute Castro # 0.53 [facility] Basophils (Bld) [#/Vol] 0.03 10*3/uL [facility] Basophils/100 WBC (Bld) 1 % 0 - 2 % [facility] Eosinophils/100 WBC (Bld) 2 % 1 - 4 % [facility] Hematocrit (Bld) [Volume fraction] 36.2 % Low 40.7 - 50.3 % [facility] Hemoglobin.gastrointe stinal spec 1 Ql (Stl) 12.1 g/dL Low 13.0 - 17.0 g/dL [facility] Immature granulocytes/100 WBC (Bld) 0 % 0 [facility] Interpretation and review of laboratory results Abnormal [facility] Lymphocytes/100 WBC (Bld) 22 % Low 24 - 43 % [facility] MCH (RBC) [Entitic mass] 31.1 pg 25.2 - 33.5 pg [facility] MCHC (RBC) [Mass/Vol] 33.4 g/dL 28.4 - 34.8 g/dL [facility] MCV (RBC) [Entitic vol] 93.1 fL 82.6 - 102.9 fL [facility] Monocytes/100 WBC (Bld) 11 % 3 - 12 % [facility] NRBC Automated 0.0 0.0 per 100 WBC [facility] Platelet distribution width (Bld) [Ratio] 13.2 % 11.8 - 14.4 % [facility] Platelet mean volume (Bld) [Entitic vol] 11.2 fL 8.1 - 13.5 fL [facility] Platelets (Bld) [#/Vol] 94 10*3/uL Low [facility] RBC (Bld) [#/Vol] 3.89 10*6/uL Low 4.21 - 5.7 7 m/uL [facility] Segmented neutrophils/100 WBC (Bld) 64 % 36 - 65 % [facility] Segs Absolute 3.14 [facility] WBC (Bld) [#/Vol] 4.9 10*3/uL [facility] CBC with Diffon 08-17-2021 Abs. Basophil 0.03 k/uL Normal 0.00-0.20 [facility] Comment on above: Performed By: #### C DP, BMPX #### [facility] Note [address] [place] [address] Mushroom Laborer: Tony Yanez MD Abs.Imm.Granulocyte <0.03 Normal 0.00-0.30 [facility] Comment on above: Performed By: #### C DP, BMPX #### [facility] [address] [place] [address] Mushroom Laborer: Tony Yanez MD Abs.Neutrophil (Seg) 3.14 k/uL Normal 1.50-8.10 [facility] Comment on above: Performed By: #### C DP, BMPX #### [facility] Note [address] [place] [address] Mushroom Laborer: Tony Yanez MD Basophils/100 WBC (Bld) 1 % Normal 0-2 [facility] Comment on above: Performed By: #### C DP, BMPX #### [facility] Note [address] [place] [address] Mushroom Laborer: Tony Yanez MD Eosinophils (Bld) [#/Vol] 0.11 10*3/uL Normal 0.00-0.44 [facility] Comment on above: Performed By: #### C DP, BMPX #### [address] [address] Mushroom Laborer: Tony Yanez MD Eosinophils/100 WBC (Bld) 2 % Normal 1-4 [facility] Comment on above: Performed By: #### C DP, BMPX #### [address] [address] Mushroom Laborer: Tony Yanez MD Erythrocyte distribution width (RBC) [Ratio] 13.2 % Normal 11.8-14.4 [facility] Comment on above: Performed By: #### C DP, BMPX #### [place] [address] Mushroom Laborer: Tony Yanez MD Hematocrit (Bld) [Volume fraction] 36.2 % Low 40.7-50.3 [facility] Comment on above: Performed By: #### C DP, BMPX #### [place] [address] Mushroom Laborer: Tony Yanez MD Hemoglobin (Bld) [Mass/Vol] 12.1 g/dL Low 13.0-17.0 [facility] Comment on above: Performed By: #### C DP, BMPX #### [address] [address] Mushroom Laborer: Tony Yanez MD Immature granulocytes/100 WBC (Bld) 0 % Normal 0 [facility] Comment on above: Performed By: #### C DP, BMPX #### [address] [address] Mushroom Laborer: Tony Yanez MD Lymphocytes (Bld) [#/Vol] 1.10 10*3/uL Normal 1.10-3.70 [facility] Comment on above: Performed By: #### C DP, BMPX #### [place] [address] Mushroom Laborer: Tony Yanez MD Lymphocytes/100 WBC (Bld) 22 % Low 24-43 [facility] Comment on above: Performed By: #### C DP, BMPX #### [place] [address] Mushroom Laborer: Tony Yanez MD MCH (RBC) [Entitic mass] 31.1 pg Normal 25.2-33.5 [facility] Comment on above: Performed By: #### C DP, BMPX #### [place] [address] Mushroom Laborer: Tony Yanez MD MCHC (RBC) [Mass/Vol] 33.4 g/dL Normal 28.4-34.8 [facility] Comment on above: Performed By: #### C DP, BMPX #### [place] [address] Mushroom Laborer: Tony Yanez MD MCV (RBC) [Entitic vol] 93.1 fL Normal 82.6-102.9 [facility] Comment on above: Performed By: #### C DP, BMPX #### [place] [address] Mushroom Laborer: Tony Yanez MD Monocytes (Bld) [#/Vol] 0.53 10*3/uL Normal 0.10-1.20 [facility] Comment on above: Performed By: #### C DP, BMPX #### [address] [address] Mushroom Laborer: Tony Yanez MD Monocytes/100 WBC (Bld) 11 % Normal 3-12 [facility] Comment on above: Performed By: #### C DP, BMPX #### [facility] Note [address] [place] [id number] Mushroom Laborer: Tony Yanez MD Neutrophil (Seg) 64 % Normal 36-65 [facility] Comment on above: Performed By: #### C DP, BMPX #### [address] [address] Mushroom Laborer: Tony Yanez MD NRBC Automated 0.0 per 100 WBC Normal 0.0 [facility] Comment on above: Performed By: #### C DP, BMPX #### [facility] Note [address] [place] [address] Mushroom Laborer: Tony Yanez MD Platelet mean volume (Bld) [Entitic vol] 11.2 fL Normal 8.1-13.5 [facility] Comment on above: Performed By: #### C DP, BMPX #### [facility] Note [address] [place] [address] Mushroom Laborer: Tony Yanez MD Platelets (Bld) [#/Vol] 94 10*3/uL Low 138-453 [facility] Comment on above: Performed By: #### C DP, BMPX #### [address] [address] Mushroom Laborer: Tony Yanez MD RBC (Bld) [#/Vol] 3.89 10*6/uL Low 4.21-5.77 [facility] Comment on above: Performed By: #### C DP, BMPX #### [address] [address] Mushroom Laborer: Tony Yanez MD WBC (Bld) [#/Vol] 4.9 10*3/uL Normal 3.5-11.3 [facility] Comment on above: Performed By: #### C DP, BMPX #### [address] [place] [address] Mushroom Laborer: Tony Yanez MD CT FACIAL BONES WO CONTRASTo n 08-17-2021 CT FACIAL BONES WO CONTRAST EXAMINATION: CT OF THE FACE WITHOUT CONTRAST 08/16/2021 8:38 pm TECHNIQUE: CT of the face was performed without the administration of intravenous contrast. Multiplanar reformatted images are provided for review. Automated exposure control, iterative reconstruction, and/or weight based adjustment of the mA/kV was utilized to reduce the radiation dose to as low as reasonably achievable. COMPARISON: None HISTORY: ORDERING SYSTEM PROVIDED HISTORY: Impact with object riding tube coremaker TECHNOLOGIST PROVIDED HISTORY: Impact with object riding tube coremaker Decision Support Exception - unselect if not a suspected or confirmed emergency medical condition->Emergency Medical Condition (MA) FINDINGS: FACIAL BONES: The maxilla is intact. Pterygoid plates are intact. Zygomatic arches are intact. The mandible is intact. The mandibular condyles are normally situated. The nasal bones and maxillary nasal processes are intact. ORBITS: The globes appear intact. The extraocular muscles, optic nerve sheath complexes and lacrimal glands appear unremarkable. No retrobulbar hematoma or mass is seen. The orbital alamo and rims are intact. SINUSES/MASTOIDS: Scattered nonaggressive mucosal thickening within the frontal and maxillary sinuses and ethmoidal air cells. Mastoid air cells are clear. SOFT TISSUES: Subcutaneous edema noted over the left face, left periorbital region and left side of the scalp. Small focus of subcutaneous emphysema left periorbital region. IMPRESSION: No acute facial fracture. Soft tissue swelling and ecchymosis of the left face and scalp. Interpreted by: Augustin Hodges MD Signed by: Augustin Hodges MD 08/16/21 Final result Normal [facility] MRSA DNA Probe, Nasalon 05- MRSA, DNA, Nasal Negative NEGATIVE [facility] Comment on above: NEGATIVE: MRSA DNA n ot detected by nucleic acid amplification. Results should be used as an adjunct to nosocomial control efforts to identify patients needing enhanced precautions. The test is not intended to identify patients with staphylococcal infections. Results should not be used to guide or monitor treatment for MRSA infections. Specimen Description .[facility]AL SWAB [facility] MRSA, DNA, Nasalon 05-26-202 2 MRSA, DNA, Nasal Negative Normal NEG [facility] Comment on above: Result Comment: NEGA TIVE: MRSA DNA not detected by nucleic acid amplification. Results should be used as an adjunct to nosocomial control efforts to identify patients needing enhanced precautions. The test is not intended to identify patients with staphylococcal infections. Results should not be used to guide or monitor treatment for MRSA infections. Performed By: #### M RSANO #### [facility] [place], [place] [id number] Mushroom Laborer: Tony Yanez MD Specimen Description .NASAL SWAB Normal [facility] Comment on above: Performed By: #### M RSANO #### [facility] Note [facility] [place], [place] [id number] Mushroom Laborer: Tony Yanez MD CBC AUTO DIFFon 08-16-2021 BASO # 0.0 103/ul Normal 0.0-0.1 [facility] Comment on above: Performed By: #### C VDTBH #### [facility] [address] [place] [address] Dr. Natalya Arthur Basophils/100 WBC (Bld) 0.6 % Normal 0.2-2.0 [facility] Comment on above: Performed By: #### C VDTBH #### [facility] [address] [place] [address] Dr. Natalya Arthur EO # 0.1 103/ul Normal 0.0-0.7 [facility] Comment on above: Performed By: #### C VDTBH #### [facility] [address] [address] [address] Natalya Arthur Eosinophils/100 WBC (Bld) 1.9 % Normal 0.9-7.0 [facility] Comment on above: Performed By: #### C VDTBH #### [facility] [address] [place] [address] Dr. Natalya Arthur Erythrocyte distribution width (RBC) [Ratio] 13.1 % Normal 11.0-15.0 [facility] Comment on above: Performed By: #### C VDTBH #### [facility] [address] [place] [address] Dr. Natalya Arthur Hematocrit (Bld) [Volume fraction] 38.5 % Critically low 42.0-54.0 [facility] Comment on above: Performed By: #### C VDTBH #### [facility] [address] [place] [address] Dr. Natalya Arthur Hemoglobin (Bld) [Mass/Vol] 12.7 g/dL Critically low 14.0-18.0 [facility] Comment on above: Performed By: #### C VDTBH #### [facility] [address] [place] [address] Dr. Natalya Arthur IG # 0.03 10e3/ul Normal 0.00-0.03 [facility] Comment on above: Performed By: #### C VDTBH #### [facility] [address] [place] [address] Dr. Natalya Arthur IG % 0.6 % Critically high 0.0-0.5 [facility] Comment on above: Performed By: #### C VDTBH #### [facility] [address] [place] [address] Dr. Natalya Arthur LYMPH # 0.8 103/ul Critically low 1.2-3.8 [facility] Comment on above: Performed By: #### C VDTBH #### [facility] [address] [place] [address] Dr. Natalya Arthur Lymphocytes/100 WBC (Bld) 15.3 % Critically low 20.5-60.0 [facility] Comment on above: Performed By: #### C VDTBH #### [facility] [address] [place] [address] Dr. Natalya Arthur MANUAL DIFF REQ NO Normal [facility] Comment on above: Performed By: #### C VDTBH #### [facility] [address] [place] [address] Dr. Natalya Arthur MCH (RBC) [Entitic mass] 31.0 pg Normal 25.9-34.0 [facility] Comment on above: Performed By: #### C VDTBH #### [facility] [address] [place] [address] Dr. Natalya Arthur MCHC (RBC) [Mass/Vol] 33.0 g/dL Normal 29.9-35.2 [facility] Comment on above: Performed By: #### C VDTBH #### [facility] [address] [place] [address] Dr. Natalya Arthur MCV (RBC) [Entitic vol] 93.9 fL Normal 80.0-94.0 [facility] Comment on above: Performed By: #### C VDTBH #### [facility] [address] [place] [address] Dr. Natalya Arthur MONO # 0.4 103/ul Normal 0.3-0.8 [facility] Comment on above: Performed By: #### C VDTBH #### [facility] [address] [place] [address] Dr. Natalya Arthur Monocytes/100 WBC (Bld) 8.0 % Normal 1.7-12.0 [facility] Comment on above: Performed By: #### C VDTBH #### [facility] [address] [place] [address] Dr. Natalya Arthur NEUT # 3.8 103/ul Normal 1.4-6.5 [facility] Comment on above: Performed By: #### C VDTBH #### [facility] [address] [place] [address] Dr. Natalya Arthur Neutrophils/100 WBC (Bld) 73.6 % Normal 43.0-75.0 [facility] Comment on above: Performed By: #### C VDTBH #### [facility] [address] [place] [address] Dr. Natalya Arthur Platelet mean volume (Bld) [Entitic vol] 10.8 fL Normal 9.5-13.5 [facility] Comment on above: Performed By: #### C VDTBH #### [facility] [address] [place] [address] Dr. Natalya Arthur PLT 100 103/ul Critically low 150-450 [facility] Comment on above: Performed By: #### C VDTBH #### [facility] [address] [place], [place] [address] Dr. Natalya Arthur RBC 4.10 106/ul Critically low 4.70-6.10 [facility] Comment on above: Performed By: #### C VDTBH #### [facility] [address] [place], [place] [address] Dr. Natalya Arthur WBC 5.2 103/ul Normal 4.0-11.0 [facility] Comment on above: Performed By: #### C VDTBH #### [facility] [address] [place], [place] [address] CSPINE WO CONon 2 CT CSPINE WO CON EXAMINATION: CT CSPI NE WO CON HISTORY: UNSPECIFIED INJURY OF HEAD, INITIAL ENCOUNTER ; fell striking head on deck COMPARISON: No relevant comparison available. TECHNIQUE: Axial, Coronal, and Sagittal images were created without IV contrast. Dose reduction techniques were achieved by using automated exposure control and/or adjustment of mA and/or kV according to patient size and/or use of iterative reconstruction technique. FINDINGS: VERTEBRAL BODIES: No fracture spondylolisthesis. FACET JOINTS: No disruption or abnormal widening. Multilevel moderate degenerative changes. CERVICAL DISCS: Minimal narrowing C4-C5. CENTRAL CANAL: No spinal stenosis or evidence of hemorrhage. PARASPINAL AREA: No visible mass. IMPRESSION: 1. No appreciable acute abnormality. 2. Multilevel moderate degenerative facet arthropathy. Electronically authenticated by: ARTHUR LÓPEZ Date: 2021-08-16 17:00 Normal [facility] CT FACIAL BONES WO CONTRASTo n 08-16-2021 No acute facial fracture. Soft tissue swelling and ecchymosis of the left face and scalp. [facility] RIS CONSOLIDATED EXAMINATION: CT OF THE FACE WITHOUT CONTRAST 08/16/2021 8:38 pm TECHNIQUE: CT of the face was performed without the administration of intravenous contrast. Multiplanar reformatted images are provided for review. Automated exposure control, iterative reconstruction, and/or weight based adjustment of the mA/kV was utilized to reduce the radiation dose to as low as reasonably achievable. COMPARISON: None HISTORY: ORDERING SYSTEM PROVIDED HISTORY: Impact with object riding tube coremaker TECHNOLOGIST PROVIDED HISTORY: Impact with object riding tube coremaker Decision Support Exception - unselect if not a suspected or confirmed emergency medical condition->Emergency Medical Condition (MA) FINDINGS: FACIAL BONES: The maxilla is intact. Pterygoid plates are intact. Zygomatic arches are intact. The mandible is intact. The mandibular condyles are normally situated. The nasal bones and maxillary nasal processes are intact. ORBITS: The globes appear intact. The extraocular muscles, optic nerve sheath complexes and lacrimal glands appear unremarkable. No retrobulbar hematoma or mass is seen. The orbital alamo and rims are intact. SINUSES/MASTOIDS: Scattered nonaggressive mucosal thickening within the frontal and maxillary sinuses and ethmoidal air cells. Mastoid air cells are clear. SOFT TISSUES: Subcutaneous edema noted over the left face, left periorbital region and left side of the scalp. Small focus of subcutaneous emphysema left periorbital region. [facility] RIS Augustin Frank MD - 08/16/2021 EXAMINATION: CT OF THE FACE WITHOUT CONTRAST 08/16/2021 8:38 pm TECHNIQUE: CT of the face was performed without the administration of intravenous contrast. Multiplanar reformatted images are provided for review. Automated exposure control, iterative reconstruction, and/or weight based adjustment of the mA/kV was utilized to reduce the radiation dose to as low as reasonably achievable. COMPARISON: None HISTORY: ORDERING SYSTEM PROVIDED HISTORY: Impact with object riding tube coremaker TECHNOLOGIST PROVIDED HISTORY: Impact with object riding tube coremaker Decision Support Exception - unselect if not a suspected or confirmed emergency medical condition->Emergency Medical Condition (MA) FINDINGS: FACIAL BONES: The maxilla is intact. Pterygoid plates are intact. Zygomatic arches are intact. The mandible is intact. The mandibular condyles are normally situated. The nasal bones and maxillary nasal processes are intact. ORBITS: The globes appear intact. The extraocular muscles, optic nerve sheath complexes and lacrimal glands appear unremarkable. No retrobulbar hematoma or mass is seen. The orbital alamo and rims are intact. SINUSES/MASTOIDS: Scattered nonaggressive mucosal thickening within the frontal and maxillary sinuses and ethmoidal air cells. Mastoid air cells are clear. SOFT TISSUES: Subcutaneous edema noted over the left face, left periorbital region and left side of the scalp. Small focus of subcutaneous emphysema left periorbital region. IMPRESSION: No acute facial fracture. Soft tissue swelling and ecchymosis of the left face and scalp. [employer] Work Phone: CT FACIAL BONES WO CONTRASTO rdered By: Augustin Hodges on 08-16-2021 [employer] Work Phone: CT HEAD WO CONon 08-16-[address] CT HEAD WO CON CT head without contrast CLINICAL: UNSPECIFIED INJURY OF HEAD, INITIAL ENCOUNTER. Patient takes aspirin and Plavix. No loss of consciousness. Hematoma/laceration to left eyebrow. Patient hit head on desk. TECHNIQUE: Contiguous transaxial images were obtained from skull base to vertex without administration of intravenous contrast. Dose reduction: mA and/or kV are were adjusted by automated exposure control software based upon patients height and weight. FINDINGS: There are no prior exams for comparison. There is a large left frontal scalp hematoma that extends to the left periorbital and preseptal region with minimal soft tissue gas and small laceration. The visualized globes and orbits are grossly normal for age. There is paranasal sinus mucosal thickening with partial opacification of ethmoid air cells and right frontal sinus. There are no paranasal sinus air-fluid levels. Bilateral mastoid air cells are clear. Bilateral mastoid air cells are clear. The ventricles and sulci are prominent bilaterally. There is periventricular and deep subcortical white matter low-attenuation consistent with small vessel ischemic disease. There is a small focus of left frontal lobe subarachnoid hemorrhage. There is also likely minimal acute extra-axial hemorrhage (subarachnoid or subdural) layering along the ventral falx. There is no discrete intracranial mass lesion. There is no acute large territory ischemia by noncontrast CT. IMPRESSION: 1. Large left frontal scalp hematoma that extends to the left periorbital and preseptal regions with minimal soft tissue gas and small laceration. 2. Small focus of left frontal lobe subarachnoid hemorrhage. There is also likely minimal acute extra-axial hemorrhage (subarachnoid or subdural) layering along the ventral falx. I discussed critical findings with Dr. Renteria in the emergency department at 3:32 PM on 08/16/2021. Electronically authenticated by: SUKH CROFT Date: 2021-08-16 15:37 Normal [facility] CT HEAD WO CONTRASTon 2021 CT HEAD WO CONTRAST EXAMINATION: CT OF THE HEAD WITHOUT CONTRAST 08/16/2021 8:38 pm TECHNIQUE: CT of the head was performed without the administration of intravenous contrast. Automated exposure control, iterative reconstruction, and/or weight based adjustment of the mA/kV was utilized to reduce the radiation dose to as low as reasonably achievable. COMPARISON: None. HISTORY: ORDERING SYSTEM PROVIDED HISTORY: SAH and SDH TECHNOLOGIST PROVIDED HISTORY: SAH and SDH Decision Support Exception - unselect if not a suspected or confirmed emergency medical condition->Emergency Medical Condition (MA) FINDINGS: BRAIN/VENTRICLES: There is minimal left frontal subarachnoid hemorrhage noted in 1 of the sulci. There is no extra-axial collections. There is no mass effect or midline shift. No abnormal extra-axial fluid collection. The balderrama-white differentiation is maintained without evidence of an acute infarct. There is no evidence of hydrocephalus. ORBITS: The visualized portion of the orbits demonstrate no acute abnormality. SINUSES: The visualized paranasal sinuses and mastoid air cells demonstrate no acute abnormality. SOFT TISSUES/SKULL: There is left frontoparietal scalp swelling/hemorrhage. IMPRESSION: Minimal left frontal subarachnoid hemorrhage in 1 of the sulci. No evidence of extra-axial collections. Prominent left frontal and parietal scalp swelling/hemorrhage. The findings were sent to the Radiology Results Communication Center at 9:22 pm on 08/16/2021 to be communicated to a licensed caregiver. Interpreted by: Hardeep Godwin MD Signed by: Hardeep Godwin MD 08/16/21 Final result Normal [facility] Minimal left frontal subarachnoid hemorrhage in 1 of the sulci. No evidence of extra-axial collections. Prominent left frontal and parietal scalp swelling/hemorrhage. The findings were sent to the Radiology Results Communication Center at 9:22 pm on 08/16/2021 to be communicated to a licensed caregiver. [facility] RIS CONSOLIDATED EXAMINATION: CT OF THE HEAD WITHOUT CONTRAST 08/16/2021 8:38 pm TECHNIQUE: CT of the head was performed without the administration of intravenous contrast. Automated exposure control, iterative reconstruction, and/or weight based adjustment of the mA/kV was utilized to reduce the radiation dose to as low as reasonably achievable. COMPARISON: None. HISTORY: ORDERING SYSTEM PROVIDED HISTORY: SAH and SDH TECHNOLOGIST PROVIDED HISTORY: SAH and SDH Decision Support Exception - unselect if not a suspected or confirmed emergency medical condition->Emergency Medical Condition (MA) FINDINGS: BRAIN/VENTRICLES: There is minimal left frontal subarachnoid hemorrhage noted in 1 of the sulci. There is no extra-axial collections. There is no mass effect or midline shift. No abnormal extra-axial fluid collection. The balderrama-white differentiation is maintained without evidence of an acute infarct. There is no evidence of hydrocephalus. ORBITS: The visualized portion of the orbits demonstrate no acute abnormality. SINUSES: The visualized paranasal sinuses and mastoid air cells demonstrate no acute abnormality. SOFT TISSUES/SKULL: There is left frontoparietal scalp swelling/hemorrhage. [facility] Hardeep Watts MD - 08/16/2021 EXAMINATION: CT OF THE HEAD WITHOUT CONTRAST 08/16/2021 8:38 pm TECHNIQUE: CT of the head was performed without the administration of intravenous contrast. Automated exposure control, iterative reconstruction, and/or weight based adjustment of the mA/kV was utilized to reduce the radiation dose to as low as reasonably achievable. COMPARISON: None. HISTORY: ORDERING SYSTEM PROVIDED HISTORY: SAH and SDH TECHNOLOGIST PROVIDED HISTORY: SAH and SDH Decision Support Exception - unselect if not a suspected or confirmed emergency medical condition->Emergency Medical Condition (MA) FINDINGS: BRAIN/VENTRICLES: There is minimal left frontal subarachnoid hemorrhage noted in 1 of the sulci. There is no extra-axial collections. There is no mass effect or midline shift. No abnormal extra-axial fluid collection. The balderrama-white differentiation is maintained without evidence of an acute infarct. There is no evidence of hydrocephalus. ORBITS: The visualized portion of the orbits demonstrate no acute abnormality. SINUSES: The visualized paranasal sinuses and mastoid air cells demonstrate no acute abnormality. SOFT TISSUES/SKULL: There is left frontoparietal scalp swelling/hemorrhage. IMPRESSION: Minimal left frontal subarachnoid hemorrhage in 1 of the sulci. No evidence of extra-axial collections. Prominent left frontal and parietal scalp swelling/hemorrhage. The findings were sent to the Radiology Results Communication Center at 9:22 pm on 08/16/2021 to be communicated to a licensed caregiver. [employer] Phone: CT HEAD WO CONTRASTOrdered B y: Hardeep Godwin on 08-16-2021 [employer] Phone: [facility]on [facility]-24 SARS-CoV-2 (COVID-19) RNA GÓMEZ+probe Ql (Unsp spec) Not detected Normal NOT DETECTED [facility] Comment on above: Result Comment: This test is not yet approved or cleared by the [place] FDA. When there are no FDA-approved or cleared tests available, and other criteria are met, FDA can make tests available under an emergency access mechanism called an Emergency Use Authorization (EUA). The EUA for this test is supported by the [employer] of Health and Human Service's (HHS's) declaration that circumstances exist to justify the emergency use of in vitro diagnostics for the detection and/or diagnosis of the virus that causes COVID-19. This EUA will remain in effect (meaning this test can be used) for the duration of the COVID-19 declaration justifying emergency of IVDs, unless it is terminated or revoked by FDA (after which the test may no longer be used). When diagnostic testing is negative, the possibility of a false negative should be considered in the context of a patient's recent exposures and the presence of clinical signs and symptoms consistent with SARS-CoV-2. Performed By: #### C VDTBH #### [facility] [address] [place] [address] Dr. Natalya Arthur No Panel Informationon 08-16 Radiology Study observation (narrative) [facility] [employer] Phone: PROF CHEM 8 (BAS METB)on Anion gap [Moles/Vol] 13.6 mmol/L Normal [facility] Comment on above: Performed By: #### C VDTBH #### [facility] [address] [place] [address] [id number] [address] Natalya Arthur Calcium [Mass/Vol] 9.0 mg/dL Normal 8.5-10.1 [facility] Comment on above: Performed By: #### C VDTBH #### [facility] [address] [place] [address] [address] [address] Natalya Arthur Chloride [Moles/Vol] 107 mmol/L Normal 98-107 [facility] Comment on above: Performed By: #### C VDTBH #### [facility] [address] [address] [address] Natalya Arthur CO2 [Moles/Vol] 24.4 mmol/L Normal 21.0-32.0 [facility] Comment on above: Performed By: #### C VDTBH #### [facility] [address] [address] [address] Natalya Arthur Creatinine [Mass/Vol] 1.09 mg/dL Normal 0.70-1.30 [facility] Comment on above: Performed By: #### C VDTBH #### [facility] [address] [address] [address] Natalya Arthur EGFR-AF AZERBAIJANI >60 Normal >=60 [facility] Comment on above: Performed By: #### C VDTBH #### [facility] [address] [address] [address] Natalya Arthur EGFR-NON AF AZERBAIJANI >60 Normal >=60 [facility] Comment on above: Performed By: #### C VDTBH #### [facility] [address] [address] [address] Natalya Arthur Glucose [Mass/Vol] 111 mg/dL Critically high 74-106 [facility] Comment on above: Performed By: #### C VDTBH #### [facility] [address] [address] [address] Natalya Arthur Potassium [Moles/Vol] 4.0 mmol/L Normal 3.5-5.1 [facility] Comment on above: Performed By: #### C VDTBH #### [facility] [address] [address] [address] Natalya Arthur Sodium [Moles/Vol] 141 mmol/L Normal 136-145 [facility] Comment on above: Performed By: #### C VDTBH #### [facility] [address] [address] [address] Natalya Arthur Urea nitrogen [Mass/Vol] 21.0 mg/dL Critically high 7.0-18.0 [facility] Comment on above: Performed By: #### C VDTBH #### [facility] [address] [place] [address] Dr. Natalya Arthur Urea nitrogen/Creatinine [Mass ratio] 19.3 mg/mg Normal [facility] Comment on above: Performed By: #### C VDTBH #### [facility] [address] [place] [address] Dr. Natalya Arthur PROTIMEon 08-16-2021 INR Coag (PPP) [Relative time] 1.12 {INR} Normal [facility] Comment on above: Performed By: #### F ETIBC, FERR #### [facility] [address] [place] [address] Dr. Natalya Arthur INR GUIDELINES SEE BELOW Normal [facility] Comment on above: Result Comment: REFUGIO RED INR: 2.0 - 3.0 CONDITIONS NOT LISTED BELOW 2.5 - 3.5 FOR PROSTHETIC HEART VALVE REPLACEMENT 2.5 - 3.5 RECURRENT THROMBOSIS Performed By: #### F ETIBC, FERR #### [facility] [address] [place] [address] Dr. Natalya Arthur PT Coag (PPP) [Time] 12.0 s Critically high 9.0-11.6 [facility] Comment on above: Performed By: #### F ETIBC, FERR #### [facility] [address] [place] [address] Dr. Natalya Arthur PTTon 08-16-2021 aPTT Coag (Bld) [Time] 28.6 s Normal 22.3-36.2 [facility] [place] Comment on above: Performed By: #### F ETIBC, FERR #### [facility] [address] [place] [address] Dr. Natalya Arthur [id number] 2021 Jttfj-[id number], Serum 125 mg/dL Normal 101-187 [facility] Comment on above: Performed By: #### A LPHA-1 #### [facility] [address] [place] [address] Dr. Natalya Arthur BETHANIE EIA W/REFLEX 5 BIOMARKER Son 07-13-2021 BETHANIE Direct Negative Normal Negative [facility] Comment on above: Performed By: #### C VDTBH #### [facility] [address] [place] [address] Dr. Natalya Arthur CERULOPLASMINon 07-13-2021 Ceruloplasmin 19.0 mg/dL Normal 16.0-31.0 [facility] Comment on above: Performed By: #### C EUROPL #### [facility] [address] [place] [address] Dr. Natalya Arthur SMOOTH MUSCLE ANTIBODYon Actin (Smooth Muscle) Antibody 25 Units Critically high 0-19 [facility] Comment on above: Result Comment: Nega tive 0 - 19 Weak positive 20 - 30 Moderate to strong positive >30 . Actin Antibodies are found in 52-85% of patients with autoimmune hepatitis or chronic active hepatitis and in 22% of patients with primary biliary cirrhosis. Performed By: #### C VDTBH #### [facility] [address] [place] [address] Dr. Natalya Arthur CBC AUTO DIFFon 07-12-2021 BASO # 0.0 103/ul Normal 0.0-0.1 [facility] Comment on above: Performed By: #### F ETIBC, FERR #### [facility] [address] [place] [address] Dr. Natalya Arthur Basophils/100 WBC (Bld) 0.4 % Normal 0.2-2.0 [facility] Comment on above: Performed By: #### F ETIBC, FERR #### [facility] [address] [place] [address] Dr. Natalya Arthur EO # 0.2 103/ul Normal 0.0-0.7 [facility] Comment on above: Performed By: #### F ETIBC, FERR #### [facility] [address] [place] [address] Dr. Natalya Arthur Eosinophils/100 WBC (Bld) 4.0 % Normal 0.9-7.0 [facility] Comment on above: Performed By: #### F ETIBC, FERR #### [facility] [address] [place] [address] Dr. Natalya Arthur Erythrocyte distribution width (RBC) [Ratio] 13.8 % Normal 11.0-15.0 [facility] Comment on above: Performed By: #### F ETIBC, FERR #### [facility] [address] [place] [address] Dr. Natalya Arthur Hematocrit (Bld) [Volume fraction] 41.5 % Critically low 42.0-54.0 [facility] Comment on above: Performed By: #### F ETIBC, FERR #### [facility] [address] [place] [address] Dr. Natalya Arthur Hemoglobin (Bld) [Mass/Vol] 13.2 g/dL Critically low 14.0-18.0 [facility] Comment on above: Performed By: #### F ETIBC, FERR #### [facility] [address] [place] [address] Dr. Natalya Arthur IG # 0.02 10e3/ul Normal 0.00-0.03 [facility] Comment on above: Performed By: #### F ETIBC, FERR #### [facility] [address] [place] [address] Dr. Natalya Arthur IG % 0.4 % Normal 0.0-0.5 [facility] Comment on above: Performed By: #### F ETIBC, FERR #### [facility] [address] [place] [address] Dr. Natalya Arthur LYMPH # 0.8 103/ul Critically low 1.2-3.8 [facility] Comment on above: Performed By: #### F ETIBC, FERR #### [facility] [address] [place] [address] Dr. Natalya Arthur Lymphocytes/100 WBC (Bld) 17.0 % Critically low 20.5-60.0 [facility] Comment on above: Performed By: #### F ETIBC, FERR #### [facility] [address] [place] [address] Dr. Natalya Arthur MANUAL DIFF REQ NO Normal [facility] Comment on above: Performed By: #### F ETIBC, FERR #### [facility] [address] [address] [address] Natalya Arthur MCH (RBC) [Entitic mass] 30.9 pg Normal 25.9-34.0 [facility] Comment on above: Performed By: #### F ETIBC, FERR #### [facility] [address] [place] [address] Dr. Natalya Arthur MCHC (RBC) [Mass/Vol] 31.8 g/dL Normal 29.9-35.2 [facility] Comment on above: Performed By: #### F ETIBC, FERR #### [facility] [address] [place] [address] Dr. Natalya Arthur MCV (RBC) [Entitic vol] 97.2 fL Critically high 80.0-94.0 [facility] Comment on above: Performed By: #### F ETIBC, FERR #### [facility] [address] [place] [address] Dr. Natalya Arthur MONO # 0.5 103/ul Normal 0.3-0.8 [facility] Comment on above: Performed By: #### F ETIBC, FERR #### [facility] [address] [place] [address] Dr. Natalya Arthur Monocytes/100 WBC (Bld) 10.5 % Normal 1.7-12.0 [facility] Comment on above: Performed By: #### F ETIBC, FERR #### [facility] [address] [place] [address] Dr. Natalya Arthur NEUT # 3.2 103/ul Normal 1.4-6.5 [facility] Comment on above: Performed By: #### F ETIBC, FERR #### [facility] [address] [place] [address] Dr. Natalya Arthur Neutrophils/100 WBC (Bld) 67.7 % Normal 43.0-75.0 [facility] Comment on above: Performed By: #### F ETIBC, FERR #### [facility] [address] [place] [address] Dr. Natalya Arthur Platelet mean volume (Bld) [Entitic vol] 10.7 fL Normal 9.5-13.5 [facility] Comment on above: Performed By: #### F ETIBC, FERR #### [facility] [address] [place] [address] Dr. Natalya Arthur PLT 106 103/ul Critically low 150-450 [facility] Comment on above: Result Comment: smea r reviewed Performed By: #### F ETIBC, FERR #### [facility] [address] [place] [address] Dr. Natalya Arthur RBC 4.27 106/ul Critically low 4.70-6.[address] [facility] Comment on above: Performed By: #### F ETIBC, FERR #### [facility] [address] [place] [address] Dr. Natalya Arthur WBC 4.8 103/ul Normal 4.0-11.0 [facility] Comment on above: Performed By: #### F ETIBC, FERR #### [facility] [address] [place] [address] Dr. Natalya Arthur FERRITINon 07-12-2021 Ferritin [Mass/Vol] 94.0 ng/mL Normal 17.9-464.0 [facility] Comment on above: Performed By: #### F ETIBC, FERR #### [facility] [address] [place] [address] Dr. Natalya Arthur IRON AND TIBCon 07-12-2021 % SATURATION 26.8 % Normal [facility] Comment on above: Performed By: #### F ETIBC, FERR #### [facility] [address] [place] [address] Dr. Natalya Arthur Iron [Mass/Vol] 106.0 ug/dL Normal 49.0-181.0 [facility] Comment on above: Performed By: #### F ETIBC, FERR #### [facility] [address] [place] [address] Dr. Natalya Arthur TIBC DIRECT 395.0 ug/dL Normal 261.0-497.0 [facility] Comment on above: Performed By: #### F ETIBC, FERR #### [facility] [address] [address] [address] Natalya Arthur LIPID PROFILEon 07-12-2021 CHOL-HDL RATIO NORM SEE BELOW Normal [facility] Comment on above: Result Comment: 3.3 - 4.4 LOW RISK 4.4 - 7.1 AVERAGE RISK 7.1 - 11.0 MODERATE RISK >11.0 HIGH RISK Performed By: #### L IVER, LIPID #### [facility] [address] [address] [address] Natalya Arthur Cholesterol [Mass/Vol] 139 mg/dL Normal <=200 [facility] Comment on above: Performed By: #### L IVER, LIPID #### [facility] [address] [place] [address] Dr. Natalya Arthur Cholesterol in HDL [Mass/Vol] 58 mg/dL Normal 40-60 [facility] Comment on above: Performed By: #### L IVER, LIPID #### [facility] [address] [place] [address] Dr. Natalya Arthur Cholesterol in LDL [Mass/Vol] 58.8 mg/dL Normal [facility] Comment on above: Performed By: #### L IVER, LIPID #### [facility] [address] [place] [address] Dr. Natalya Arthur Cholesterol.total/Cho lesterol in HDL [Mass ratio] 2.4 {ratio} Normal [facility] Comment on above: Performed By: #### L IVER, LIPID #### [facility] [address] [place] [address] Dr. Natalya Arthur HDL NORMAL > or = 60 mg/dl - LO W CARDIOVASCULAR RISK <40 mg/dl - HIGH CARDIOVASCULAR RISK Normal [facility] Comment on above: Performed By: #### L IVER, LIPID #### [facility] [address] [place] [address] Dr. Natalya Arthur LDL CALC NORMAL SEE BELOW Normal [facility] Comment on above: Result Comment: <100 mg/dl OPTIMAL 100 - 129 mg/dl NEAR OR ABOVE OPTIMAL 130 - 159 mg/dl BORDERLINE HIGH 160 - 189 mg/dl HIGH >190 mg/dl VERY HIGH Performed By: #### L IVER, LIPID #### [facility] [address] [address] [address] Natalya Arthur Triglyceride [Mass/Vol] 111 mg/dL Normal <=150 [facility] Comment on above: Performed By: #### L IVER, LIPID #### [facility] [address] [address] [address] Natalya Arthur VLDL CALC 22.2 mg/dL Normal [facility] Comment on above: Performed By: #### L IVER, LIPID #### [facility] [address] [address] [address] Natalya Arthur LIVER PROFILEon 07-12-2021 Albumin [Mass/Vol] 3.4 g/dL Normal 3.4-5.0 [facility] Comment on above: Performed By: #### L IVER, LIPID #### [facility] [address] [place] [address] Dr. Natalya Arthur Albumin/Globulin [Mass ratio] 0.9 {ratio} Normal [facility] Comment on above: Performed By: #### L IVER, LIPID #### [facility] [address] [address] [address] Natalya Arthur ALP [Catalytic activity/Vol] 129 U/L Critically high 46-116 [facility] Comment on above: Performed By: #### L IVER, LIPID #### [facility] [address] [place] [address] Dr. Natalya Arthur ALT [Catalytic activity/Vol] 72 U/L Critically high 16-63 [facility] Comment on above: Performed By: #### L IVER, LIPID #### [facility] [address] [address] [address] Natalya Arthur AST [Catalytic activity/Vol] 57 U/L Critically high 15-37 [facility] Comment on above: Performed By: #### L IVER, LIPID #### [facility] [address] [address] [address] Natalya Arthur BILI, CONJUGATED 0.2 mg/dL Normal 0.0-0.3 [facility] Comment on above: Performed By: #### L IVER, LIPID #### [facility] [address] [place] [address] Dr. Natalya Arthur Bilirubin [Mass/Vol] 0.6 mg/dL Normal 0.2-1.3 [facility] Comment on above: Performed By: #### L IVER, LIPID #### [facility] [address] [place] [address] Dr. Natalya Arthur Globulin (S) [Mass/Vol] 3.9 g/dL Normal [facility] Comment on above: Performed By: #### L IVER, LIPID #### [facility] [address] [place] [address] Dr. Natalya Arthur Protein [Mass/Vol] 7.3 g/dL Normal 6.1-8.2 [facility] Comment on above: Performed By: #### L IVER, LIPID #### [facility] [address] [place] [address] Dr. Natalya Arthur PROTIMEon 07-12-2021 INR Coag (PPP) [Relative time] 1.10 {INR} Normal [facility] Comment on above: Performed By: #### F ETIBC, FERR #### [facility] [address] [place] [address] Dr. Natalya Arthur INR GUIDELINES SEE BELOW Normal [facility] Comment on above: Result Comment: REFUGIO RED INR: 2.0 - 3.0 CONDITIONS NOT LISTED BELOW 2.5 - 3.5 FOR PROSTHETIC HEART VALVE REPLACEMENT 2.5 - 3.5 RECURRENT THROMBOSIS Performed By: #### F ETIBC, FERR #### [facility] [address] [place] [address] Dr. Natalya Arthur PT Coag (PPP) [Time] 11.8 s Critically high 9.0-11.6 [facility] Comment on above: Performed By: #### F ETIBC, FERR #### [facility] [address] [place] [address] Dr. Natalya Arthur Comprehensive Metabolic Pane jamaal 06-07-2021 Albumin [Mass/Vol] 3.9 g/dL Normal 3.6-5.1 Arias damon [employer] Comment on above: Performed By: #### C MP #### [facility] [address], [place] [id number] Albumin/Globulin [Mass ratio] 1.4 {ratio} Normal 1.0-2.5 [facility] Comment on above: Performed By: #### C MP #### [facility] [address], [place] [id number] ALP [Catalytic activity/Vol] 128 U/L Normal 40-129 [facility] Comment on above: Performed By: #### C MP #### [facility] [address], [place] [id number] ALT [Catalytic activity/Vol] 45 U/L Normal 9-46 [facility] Comment on above: Result Comment: 02/22 Female reference range changed. Performed By: #### C MP #### [facility] [address], [place] [id number] Anion gap [Moles/Vol] 15 mmol/L Normal 12-20 [facility] Comment on above: Result Comment: Effe ctive 03/30/2019 reference range changed. Performed By: #### C MP #### [facility] [address], [place] [id number] AST [Catalytic activity/Vol] 49 U/L High 10-40 [facility] Comment on above: Performed By: #### C MP #### [facility] [address], [place] [id number] Bilirubin [Mass/Vol] 0.36 mg/dL Normal 0.30-1.20 [facility] Comment on above: Performed By: #### C MP #### [facility] [address], [place] [id number] BUN/CREA 15 Ratio Normal 6-22 [facility] Comment on above: Performed By: #### C MP #### [facility] [address], [place] [id number] Calcium [Mass/Vol] 9.2 mg/dL Normal 8.6-10.2 [facility] Comment on above: Performed By: #### C MP #### [facility] [address], [place] [id number] Chloride [Moles/Vol] 104 mmol/L Normal 98-107 [facility] Comment on above: Performed By: #### C MP #### [facility] [address], [place] [id number] CO2 [Moles/Vol] 24 mmol/L Normal 20-31 [facility] Comment on above: Performed By: #### C MP #### [facility] [address], [place] [id number] Creatinine [Mass/Vol] 1.0 mg/dL Normal 0.7-1.4 [facility] Comment on above: Performed By: #### C MP #### [facility] [address], [place] [id number] eGFRAA 90 mL/min/1.73m2 Normal >60 [facility] Comment on above: Performed By: #### C MP #### [facility] [address], [place] [id number] eGFRNAA 74 mL/min/1.73m2 Normal >60 [facility] Comment on above: Performed By: #### C MP #### [facility] [address], [place] [id number] Globulin (S) [Mass/Vol] 2.7 g/dL Normal 1.9-3.7 [facility] Comment on above: Performed By: #### C MP #### [facility] [address], [place] [id number] Glucose [Mass/Vol] 111 mg/dL High 65-99 [facility] Comment on above: Result Comment: For FASTING Glucose --- ADA reference ranges: Normal 65-99 mg/dl Prediabetes 100-125 Diabetes >/= 126 Performed By: #### C MP #### [facility] [address], [place] [id number] Potassium [Moles/Vol] 4.5 mmol/L Normal 3.5-5.5 [facility] Comment on above: Performed By: #### C MP #### [facility] [address], [place] [id number] Protein [Mass/Vol] 6.6 g/dL Normal 6.1-8.1 [facility] Specialist Comment on above: Performed By: #### C MP #### [facility] [address] [id number] Sodium [Moles/Vol] 139 mmol/L Normal 135-146 Arias damon [employer] Comment on above: Performed By: #### C MP #### [facility] [address] [id number] Urea nitrogen [Mass/Vol] 15 mg/dL Normal 7-25 [facility] Comment on above: Performed By: #### C MP #### [facility] [address], [place] [id number] Q - HEPATITIS PANEL ABC GENE RAL WITH REFLEXon 06-07-2021 HEPATITIS A AB, TOTAL Non-Reactive Normal NON-RE ACTIV E [facility] Specialist Comment on above: Order Comment: [facility] performed at: [facility], [facility], [address] [facility], [address] [place] [address], [address] [place] [address], Supervisor [employer]: Sd Sharma MD [facility] Collection Date/Time: [facility] Results Received Date/Time: [facility] Reported Date/Time: Result Comment: For additional information, please refer to http://education.DNART LIMITADA/faq/DKY081 (This link is being provided for informational/ educational purposes only.) Performed By: #### [id number] #### [facility] [address] [place] [address] HEPATITIS B CORE AB TOTAL Non-Reactive Normal NON-REACTIV E [facility] Comment on above: Order Comment: [facility] performed at: [employer], [employer] [facility], [address] , [address] [place] [address], [phone], Supervisor [employer]: Sd Sharma MD [facility] Date/Time: [facility] Results Received Date/Time: [facility] Reported Date/Time: Performed By: #### [id number] #### [facility] [address] [place] [address] HEPATITIS B SURFACE ANTIBODY QL Non-Reactive Normal NON-REACTIV E [facility] Specialist Comment on above: Order Comment: [facility] performed at: [employer], [employer] [facility], [address] [facility], [address] [place] [address], [address] [place] [address], Supervisor [employer]ining: Sd Sharma MD [facility] Date/Time: [facility] Results Received Date/Time: [facility] Reported Date/Time: Performed By: #### 6 [id number] #### [facility] [address] [place] [address] HEPATITIS B SURFACE ANTIGEN Non-Reactive Normal NON-REACTIV E [facility] Specialist Comment on above: Order Comment: [facility] performed at: [employer], [employer] [facility], [address] [facility], [address] [place] [address], [address] [place] [address], Supervisor [employer]ining: Sd Sharma MD [facility] Date/Time: [facility] Results Received Date/Time: [facility] Reported Date/Time: Performed By: #### 6 [id number] #### [facility] [address] [place] [address] HEPATITIS C ANTIBODY Non-Reactive Normal NON-AMANDA CTIV E [facility] Specialist Comment on above: Order Comment: [facility] performed at: [employer], [facility], [address] [facility], [address] [place] [address], [address] [place] [address], Supervisor [employer]: Sd Sharma MD [facility] Date/Time: [facility] Results Received Date/Time: [facility] Reported Date/Time: Performed By: #### 6 [id number] #### [facility] [address] [place] [address] SIGNAL TO CUT-OFF 0.02 Normal <1.00 [facility] Comment on above: Order Comment: [facility] performed at: [employer], [facility], [address] [facility], [address] [place] [address], [address] [place] [address], Supervisor [employer]ining: Sd Sharma MD [facility] Date/Time: [facility] Results Received Date/Time: [facility] Reported Date/Time: Result Comment: HCV antibody was non-reactive. There is no laboratory evidence of HCV infection. In most cases, no further action is required. However, if recent HCV exposure is suspected, a test for HCV RNA (test code 58093) is suggested. For additional information please refer to http://education.DNART LIMITADA/faq/XAG28z3 (This link is being provided for informational/ educational purposes only.) Performed By: #### 6 [id number] #### [facility] [address] [place] [address] Complete Blood Count with Au to Diffon 05-01-2021 Basophils (Bld) [#/Vol] 0.05 10*3/uL Normal 0.00-0.20 [facility] Specialist Comment on above: Performed By: #### C BCAD, CMP, VITD, TSH reflex FT4, LIPD #### [facility] [address], [place] [id number] Basophils/100 WBC (Bld) 1.1 % Normal [facility] Comment on above: Performed By: #### C BCAD, CMP, VITD, TSH reflex FT4, LIPD #### [facility] [address], [place] [id number] Eosinophils (Bld) [#/Vol] 0.29 10*3/uL Normal 0.02-0.50 [facility] Specialist Comment on above: Performed By: #### C BCAD, CMP, VITD, TSH reflex FT4, LIPD #### [facility] [address], [place] [id number] Eosinophils/100 WBC (Bld) 6.3 % Normal [facility] Specialist Comment on above: Performed By: #### C BCAD, CMP, VITD, TSH reflex FT4, LIPD #### [facility] [address], [place] [id number] Erythrocyte distribution width (RBC) [Ratio] 12.9 % Normal 11.0-15.0 [facility] Specialist Comment on above: Performed By: #### C BCAD, CMP, VITD, TSH reflex FT4, LIPD #### [facility] [address], [place] [id number] Hematocrit (Bld) [Volume fraction] 40.4 % Normal 38.5-50.0 [facility] Specialist Comment on above: Performed By: #### C BCAD, CMP, VITD, TSH reflex FT4, LIPD #### [facility] [address], [place] [id number] Hemoglobin (Bld) [Mass/Vol] 13.1 g/dL Normal 13.0-17.1 [facility] Specialist Comment on above: Performed By: #### C BCAD, CMP, VITD, TSH reflex FT4, LIPD #### [facility] [address], [place] [id number] Lymphocytes (Bld) [#/Vol] 0.9 10*3/uL Normal 0.9-3.9 [facility] Specialist Comment on above: Performed By: #### C BCAD, CMP, VITD, TSH reflex FT4, LIPD #### [facility] [address], [place] [id number] Lymphocytes/100 WBC (Bld) 18.6 % Normal [facility] Specialist Comment on above: Performed By: #### C BCAD, CMP, VITD, TSH reflex FT4, LIPD #### [facility] [address], [place] [id number] MCH (RBC) [Entitic mass] 31.0 pg Normal 27.0-33.0 [facility] Specialist Comment on above: Performed By: #### C BCAD, CMP, VITD, TSH reflex FT4, LIPD #### [facility] [address], [place] [id number] MCHC (RBC) [Mass/Vol] 32.4 g/dL Normal 32.0-36.0 [facility] Comment on above: Performed By: #### C BCAD, CMP, VITD, TSH reflex FT4, LIPD #### [facility] [address], [place] [id number] MCV (RBC) [Entitic vol] 96 fL Normal 80-100 [facility] Specialist Comment on above: Performed By: #### C BCAD, CMP, VITD, TSH reflex FT4, LIPD #### [facility] [address], [place] [id number] Monocytes (Bld) [#/Vol] 0.4 10*3/uL Normal 0.2-0.9 [facility] Specialist Comment on above: Performed By: #### C BCAD, CMP, VITD, TSH reflex FT4, LIPD #### [facility] [address], [place] [id number] Monocytes/100 WBC (Bld) 8.4 % Normal [facility] Specialist Comment on above: Performed By: #### C BCAD, CMP, VITD, TSH reflex FT4, LIPD #### [facility] [address], [place] [id number] Neutrophils (Bld) [#/Vol] 3.0 10*3/uL Normal 1.5-7.8 [facility] Specialist Comment on above: Performed By: #### C BCAD, CMP, VITD, TSH reflex FT4, LIPD #### [facility] [address], [place] [id number] Neutrophils/100 WBC (Bld) 65.4 % Normal [facility] Specialist Comment on above: Performed By: #### C BCAD, CMP, VITD, TSH reflex FT4, LIPD #### [facility] [address] [id number] Platelet mean volume (Bld) [Entitic vol] 10.20 fL Normal 7.50-12.50 [facility] Comment on above: Performed By: #### C BCAD, CMP, VITD, TSH reflex FT4, LIPD #### [facility] [address], [place] [id number] Platelets (Bld) [#/Vol] 141 10*3/uL Normal 140-400 [facility] Specialist Comment on above: Performed By: #### C BCAD, CMP, VITD, TSH reflex FT4, LIPD #### [facility] [address], [place] [id number] RBC (Bld) [#/Vol] 4.22 10*6/uL Normal 4.20-5.80 [place] [employer] Comment on above: Performed By: #### C BCAD, CMP, VITD, TSH reflex FT4, LIPD #### [facility] [address], [place] [id number] RDW-SD 45.2 fL Normal 37.0-50.0 [facility] [employer]st Comment on above: Performed By: #### C BCAD, CMP, VITD, TSH reflex FT4, LIPD #### [facility] [address], [place] [id number] WBC (Bld) [#/Vol] 4.6 10*3/uL Normal 3.8-11.0 [facility] [employer] Comment on above: Performed By: #### C BCAD, CMP, VITD, TSH reflex FT4, LIPD #### [facility] [address], [place] [id number] [facility] 05-01-2021 Albumin [Mass/Vol] 4.0 g/dL Normal 3.6-5.1 [facility] [employer] Comment on above: Performed By: #### C BCAD, CMP, VITD, TSH reflex FT4, LIPD #### [facility] [address], [place] [id number] Albumin/Globulin [Mass ratio] 1.5 {ratio} Normal 1.0-2.5 [facility] Specialist Comment on above: Performed By: #### C BCAD, CMP, VITD, TSH reflex FT4, LIPD #### [facility] [address], [place] [id number] ALP [Catalytic activity/Vol] 140 U/L High 40-129 [facility] Specialist Comment on above: Performed By: #### C BCAD, CMP, VITD, TSH reflex FT4, LIPD #### [facility] [address], [place] [id number] ALT [Catalytic activity/Vol] 63 U/L High 9-46 [facility] [employer] Comment on above: Result Comment: 02/22 Female reference range changed. Performed By: #### C BCAD, CMP, VITD, TSH reflex FT4, LIPD #### [facility] [address], [place] [id number] Anion gap [Moles/Vol] 17 mmol/L Normal 12-20 [facility] Comment on above: Result Comment: Effe ctive 03/30/2019 reference range changed. Performed By: #### C BCAD, CMP, VITD, TSH reflex FT4, LIPD #### [facility] [address], [place] [id number] AST [Catalytic activity/Vol] 62 U/L High 10-40 [facility] Comment on above: Performed By: #### C BCAD, CMP, VITD, TSH reflex FT4, LIPD #### [facility] [address], [place] [id number] Bilirubin [Mass/Vol] 0.41 mg/dL Normal 0.30-1.20 [facility] Comment on above: Performed By: #### C BCAD, CMP, VITD, TSH reflex FT4, LIPD #### [facility] [address], [place] [id number] BUN/CREA 13 Ratio Normal 6-22 [facility] Comment on above: Performed By: #### C BCAD, CMP, VITD, TSH reflex FT4, LIPD #### [facility] [address], [place] [id number] Calcium [Mass/Vol] 9.5 mg/dL Normal 8.6-10.2 [facility] Comment on above: Performed By: #### C BCAD, CMP, VITD, TSH reflex FT4, LIPD #### [facility] [address], [place] [id number] Chloride [Moles/Vol] 106 mmol/L Normal 98-107 [facility] Comment on above: Performed By: #### C BCAD, CMP, VITD, TSH reflex FT4, LIPD #### [facility] [address], [place] [id number] CO2 [Moles/Vol] 26 mmol/L Normal 20-31 [facility] Comment on above: Performed By: #### C BCAD, CMP, VITD, TSH reflex FT4, LIPD #### [facility] [address], [place] [id number] Creatinine [Mass/Vol] 0.9 mg/dL Normal 0.7-1.4 [facility] Specialist Comment on above: Performed By: #### C BCAD, CMP, VITD, TSH reflex FT4, LIPD #### [facility] [address], [place] [id number] eGFRAA 99 mL/min/1.73m2 Normal >60 [facility] Specialist Comment on above: Performed By: #### C BCAD, CMP, VITD, TSH reflex FT4, LIPD #### [facility] [address], [place] [id number] eGFRNAA 81 mL/min/1.73m2 Normal >60 [facility] Specialist Comment on above: Performed By: #### C BCAD, CMP, VITD, TSH reflex FT4, LIPD #### [facility] [address], [place] [id number] Globulin (S) [Mass/Vol] 2.6 g/dL Normal 1.9-3.7 [facility] Specialist Comment on above: Performed By: #### C BCAD, CMP, VITD, TSH reflex FT4, LIPD #### [facility] [address], [place] [id number] Glucose [Mass/Vol] 89 mg/dL Normal 65-99 [facility] [employer] Analyst Comment on above: Result Comment: For FASTING Glucose --- ADA reference ranges: Normal 65-99 mg/dl Prediabetes 100-125 Diabetes >/= 126 Performed By: #### C BCAD, CMP, VITD, TSH reflex FT4, LIPD #### [facility] [address], [place] [id number] Potassium [Moles/Vol] 5.0 mmol/L Normal 3.5-5.5 [facility] [employer]st Comment on above: Performed By: #### C BCAD, CMP, VITD, TSH reflex FT4, LIPD #### [facility] [address], [place] [id number] Protein [Mass/Vol] 6.6 g/dL Normal 6.1-8.1 Arias [employer] Comment on above: Performed By: #### C BCAD, CMP, VITD, TSH reflex FT4, LIPD #### [facility] [address], [place] [id number] Sodium [Moles/Vol] 143 mmol/L Normal 135-146 [facility] Comment on above: Performed By: #### C BCAD, CMP, VITD, TSH reflex FT4, LIPD #### [facility] [address] [facility] [place] [id number] Urea nitrogen [Mass/Vol] 12 mg/dL Normal 7-25 [facility] Comment on above: Performed By: #### C BCAD, CMP, VITD, TSH reflex FT4, LIPD #### [facility] [address] [facility] [place] [id number] Lipid Panelon 05-01-2021 Cholesterol [Mass/Vol] 135 mg/dL Normal 125-200 [facility] Comment on above: Result Comment: Low risk < 200mg/dL Borderline risk 201-239 mg/dl High risk > or equal to 240 Performed By: #### C BCAD, CMP, VITD, TSH reflex FT4, LIPD #### [facility] [address] [facility] [place] [id number] Cholesterol in HDL [Mass/Vol] 44 mg/dL Normal >40 [facility] Comment on above: Result Comment: High Cardiovascular Risk HDL <40 mg/dL Low Cardiovascular Risk HDL > or equal to 60 mg/dl Performed By: #### C BCAD, CMP, VITD, TSH reflex FT4, LIPD #### [facility] [address], [place] [id number] Cholesterol in LDL [Mass/Vol] 65 mg/dL Normal [facility] Comment on above: Result Comment: LDL ATP III CLASSIFICATION LDL less than 100 mg/dl Optimal LDL 100-129 mg/dl Near or above optimal LDL 130-159 Borderline high LDL 160-189 High LDL greater than 189 mg/dl Very High Performed By: #### C BCAD, CMP, VITD, TSH reflex FT4, LIPD #### [facility] [address] [facility] [place] [id number] Cholesterol in VLDL [Mass/Vol] 26 mg/dL Normal [facility] Comment on above: Performed By: #### C BCAD, CMP, VITD, TSH reflex FT4, LIPD #### [facility] [address], [place] [id number] Cholesterol.total/Cho lesterol in HDL [Mass ratio] 3 {ratio} Normal [facility] Specialist Comment on above: Performed By: #### C BCAD, CMP, VITD, TSH reflex FT4, LIPD #### [facility] [address], [place] [id number] Triglyceride [Mass/Vol] 130 mg/dL Normal 30-150 [facility] Specialist Comment on above: Result Comment: TRIG ATPIII CLASSIFICATIONS TRIG less than 150 mg/dl Normal TRIG 150-199 mg/dl Borderline High TRIG 200-500 mg/dl High TRIG greather than 500 mg/dl Very High Performed By: #### C BCAD, CMP, VITD, TSH reflex FT4, LIPD #### [facility] [address], [place] [id number] PSA SCREEN (MEDICARE)on TPSA 0.983 ng/mL Normal <4.000 [facility] Specialist Comment on above: Result Comment: PSA Test Method: ECLIA/Mick e 601 Performed By: #### P SA MC #### [facility] [address], [place] [id number] TSH w/ Reflex to Free T4on 0 05-01-2021 TSH 1.150 uIU/mL Normal 0.400-4.500 [facility] [employer] Analyst Comment on above: Performed By: #### C BCAD, CMP, VITD, TSH reflex FT4, LIPD #### [facility] [address], [place] [id number] Vitamin D 25-OHon 05-01-2021 VIT D 25 OH 32 ng/ml Normal >29 [facility] Specialist Comment on above: Result Comment: Amria E min D Status Deficiency <20 ng/mL Insufficiency 20-29 ng/mL Optimal 30-100 ng/mL Possible Toxicity >=150 ng/mL Performed By: #### C BCAD, CMP, VITD, TSH reflex FT4, LIPD #### [facility] [address], [place] [id number] Covid-19 PCR (CVDTBH)on SARS-CoV-2 (COVID-19) RNA GÓMEZ+probe Ql (Unsp spec) Not detected Normal NOT DETECTED [facility] Comment on above: Result Comment: This test is not yet approved or cleared by the [place] FDA. When there are no FDA-approved or cleared tests available, and other criteria are met, FDA can make tests available under an emergency access mechanism called an Emergency Use Authorization (EUA). The EUA for this test is supported by the [place] of Health and Human Service's (HHS's) declaration that circumstances exist to justify the emergency use of in vitro diagnostics for the detection and/or diagnosis of the virus that causes COVID-19. This EUA will remain in effect (meaning this test can be used) for the duration of the COVID-19 declaration justifying emergency of IVDs, unless it is terminated or revoked by FDA (after which the test may no longer be used). When diagnostic testing is negative, the possibility of a false negative should be considered in the context of a patient's recent exposures and the presence of clinical signs and symptoms consistent with SARS-CoV-2. Performed By: #### F ETIBC, FERR #### [facility] [address] [place] [address] Dr. Natalya Arthur CBC AUTO DIFFon 02-03-2021 BASO # 0.0 103/ul Normal 0.0-0.1 [facility] Comment on above: Performed By: #### C BC #### [facility] [address] [place] [address] Dr. Natalya Arthur Basophils/100 WBC (Bld) 0.3 % Normal 0.2-2.0 [facility] Comment on above: Performed By: #### C BC #### [facility] [address] [place] [address] Dr. Natalya Arthur EO # 0.0 103/ul Normal 0.0-0.7 [facility] Comment on above: Performed By: #### C BC #### [facility] [address] [place] [address] Dr. Natalya Arthur Eosinophils/100 WBC (Bld) 0.1 % Critically low 0.9-7.0 [facility] Comment on above: Performed By: #### C BC #### [facility] [address] [place] [address] Dr. Natalya Arthur Erythrocyte distribution width (RBC) [Ratio] 13.2 % Normal 11.0-15.0 [facility] Comment on above: Performed By: #### C BC #### [facility] [address] [place] [address] Dr. Natalya Arthur Hematocrit (Bld) [Volume fraction] 46.5 % Normal 42.0-54.0 [facility] Comment on above: Performed By: #### C BC #### [facility] [address] [place] [address] Dr. Natalya Arthur Hemoglobin (Bld) [Mass/Vol] 15.2 g/dL Normal 14.0-18.0 [facility] Comment on above: Performed By: #### C BC #### [facility] [address] [place] [address] Dr. Natalya Arthur IG # 0.04 10e3/ul Critically high 0.00-0.03 [facility] Comment on above: Performed By: #### C BC #### [facility] [address] [place] [address] Dr. Natalya Arthur IG % 0.3 % Normal 0.0-0.5 [facility] Comment on above: Performed By: #### C BC #### [facility] [address] [place] [address] Dr. Natalya Arthur LYMPH # 1.2 103/ul Normal 1.2-3.8 [facility] Comment on above: Performed By: #### C BC #### [facility] [address] [place] [address] Dr. Natalya Arthur Lymphocytes/100 WBC (Bld) 10.3 % Critically low 20.5-60.0 [facility] Comment on above: Performed By: #### C BC #### [facility] [address] [place] [address] Dr. Natalya Arthur MANUAL DIFF REQ NO Normal [facility] Comment on above: Performed By: #### C BC #### [facility] [address] [address] [address] Natalya Arthur MCH (RBC) [Entitic mass] 31.0 pg Normal 25.9-34.0 [facility] Comment on above: Performed By: #### C BC #### [facility] [address] [address] [address] Natalya Arthur MCHC (RBC) [Mass/Vol] 32.7 g/dL Normal 29.9-35.2 [facility] Comment on above: Performed By: #### C BC #### [facility] [address] [place] [address] Dr. Natalya Arthur MCV (RBC) [Entitic vol] 94.9 fL Critically high 80.0-94.0 [facility] Comment on above: Performed By: #### C BC #### [facility] [address] [place] [address] Dr. Natalya Arthur MONO # 1.1 103/ul Critically high 0.3-0.[address] [facility] Comment on above: Performed By: #### C BC #### [facility] [address] [place] [address] Dr. Natalya Arthur Monocytes/100 WBC (Bld) 9.2 % Normal 1.7-12.0 [facility] Comment on above: Performed By: #### C BC #### [facility] [address] [place] [address] Dr. Natalya Arthur NEUT # 9.6 103/ul Critically high 1.4-6.[address] [facility] Comment on above: Performed By: #### C BC #### [facility] [address] [place] [address] Dr. Natalya Arthur Neutrophils/100 WBC (Bld) 79.8 % Critically high 43.0-75.0 [facility] Comment on above: Performed By: #### C BC #### [facility] [address] [place] [address] Dr. Natalya Arthur Platelet mean volume (Bld) [Entitic vol] 10.3 fL Normal 9.5-13.5 [facility] Comment on above: Performed By: #### C BC #### [facility] [address] [place] [address] Dr. Natalya Arthur PLT 126 103/ul Critically low 150-450 [facility] Comment on above: Performed By: #### C BC #### [facility] [address] [place] [address] Dr. Natalya Arthur RBC 4.90 106/ul Normal 4.70-6.10 [facility] Comment on above: Performed By: #### C BC #### [facility] [address] [place] [address] Dr. Natalya Arthur WBC 12.1 103/ul Critically high 4.0-11.0 [facility] Comment on above: Performed By: #### C BC #### [facility] [address] [place] [address] Dr. Natalya Arthur ER URINE PROFILEon 1 Bilirubin Ql (U) Negative Normal NEGATIVE [facility] Comment on above: Performed By: #### Arthur MCLEAN UMICRO #### [facility] [address] [place] [address] Dr. Natalya Arthur Clarity (U) CLEAR Normal CLEAR [facility] Comment on above: Performed By: #### BERTRAM BESSICRO #### [facility] [address] [place] [address] Dr. Natalya Arthur Color (U) YELLOW Normal YELLOW [facility] Comment on above: Performed By: #### ROHAN BESSRO #### [facility] [address] [place] [address] Dr. Natalya MALLOY A micrscopic examination will be performed if indicated. Normal [facility] Comment on above: Performed By: #### Arthur MCLEAN UMICRO #### [facility] [address] [place] [address] Dr. Natalya Arthur Glucose Ql (U) Negative Normal NEGATIVE [facility] Comment on above: Performed By: #### Arthur MCLEAN UMICRO #### [facility] [address] [place] [address] Dr. Natalya Arthur Hemoglobin Ql (U) LARGE Abnormal NEGATIVE [facility] Comment on above: Performed By: #### Arthur MCLEAN UMICRO #### [facility] [address] [place] [address] Dr. Natalya Arthur Ketones Ql (U) Negative Normal NEGATIVE [facility] Comment on above: Performed By: #### Arthur MCLEAN UMICRO #### [facility] [address] [place] [address] Dr. Natalya Arthur LEUKOCYTES Negative Normal NEGATIVE [facility] Comment on above: Performed By: #### Arthur MCLEAN UMICRO #### [facility] [address] [place] [address] Dr. Natalya Arthur Nitrite Ql (U) Negative Normal NEGATIVE [facility] Comment on above: Performed By: #### Arthur MCLEAN UMICRO #### [facility] [address] [place] [address] Dr. Natalya Arthur pH (U) 6.0 [pH] Normal 5-9 [facility] Comment on above: Performed By: #### Arthur MCLEAN UMICRO #### [facility] [address] [place] [address] Dr. Natalya Arthur Protein (U) [Mass/Vol] 100 mg/dL Abnormal NEGATIVE/ TRACE [facility] Comment on above: Performed By: #### Arthur MCLEAN UMICRO #### [facility] [address] [place] [address] Dr. Natalya Arthur SPEC GRAVITY >=1.030 Abnormal 1.005-<=1.0 25 [facility] Comment on above: Performed By: #### Arthur MCLEAN UMICRO #### [facility] [address] [place] [address] Dr. Natalya Arthur UR MICRO IND INDICATED Normal [facility] Comment on above: Performed By: #### Arthur MCLEAN UMICRO #### [facility] [address] [place] [address] Dr. Natalya Arthur Urobilinogen Qn (U) 0.2 {Vonnie'U}/dL Normal 0.2 - 1. 0 [facility] Comment on above: Performed By: #### E MICK MCLEAN #### [facility] [address] [place] [address] Dr. Natalya Arthur LACTATE/LACTIC ACIDon 2020 Lactate [Moles/Vol] 1.7 mmol/L Normal 0.7-2.0 [facility] Comment on above: Performed By: #### C VDTBH #### [facility] [address] [place] [address] Dr. Natalya Arthur LIPASEon 02-03-2021 Lipase [Catalytic activity/Vol] 143.0 U/L Normal 23.0-300.0 [facility] Comment on above: Performed By: #### C VDTBH #### [facility] [address] [place] [address] Dr. Natalya Arthur PROF 14(COMP METB)on 021 Albumin [Mass/Vol] 3.6 g/dL Normal 3.5-5.0 [facility] Comment on above: Performed By: #### C VDTBH #### [facility] [address] [place] [address] Dr. Natalya Arthur Albumin/Globulin [Mass ratio] 0.8 {ratio} Normal [facility] Comment on above: Performed By: #### C VDTBH #### [facility] [address] [place] [address] Dr. Natalya Arthur ALP [Catalytic activity/Vol] 108 U/L Normal 38-126 [facility] Comment on above: Performed By: #### C VDTBH #### [facility] [address] [place] [address] Dr. Natalya Arthur ALT [Catalytic activity/Vol] 65 U/L Normal 21-72 [facility] Comment on above: Performed By: #### C VDTBH #### [facility] [address] [place] [address] Dr. Natalya Arthur Anion gap [Moles/Vol] 13.9 mmol/L Normal [facility] Comment on above: Performed By: #### C VDTBH #### [facility] [address] [address] [address] Natalya Arthur AST [Catalytic activity/Vol] 42 U/L Normal 17-59 [facility] Comment on above: Performed By: #### C VDTBH #### [facility] [address] [address] [address] Natalya Arthur Bilirubin [Mass/Vol] 1.0 mg/dL Normal 0.2-1.3 [facility] Comment on above: Performed By: #### C VDTBH #### [facility] [address] [place] [address] Dr. Natalya Arthur Calcium [Mass/Vol] 9.7 mg/dL Normal 8.4-10.2 [facility] Comment on above: Performed By: #### C VDTBH #### [facility] [address] [place] [address] Dr. Natalya Arthur Chloride [Moles/Vol] 100 mmol/L Normal 98-107 [facility] Comment on above: Performed By: #### C VDTBH #### [facility] [address] [place] [address] Dr. Natalya Arthur CO2 [Moles/Vol] 28.2 mmol/L Normal 22.0-30.0 [facility] Comment on above: Performed By: #### C VDTBH #### [facility] [address] [place] [address] Dr. Natalya Arthur Creatinine [Mass/Vol] 1.18 mg/dL Normal 0.66-1.25 [facility] Comment on above: Performed By: #### C VDTBH #### [facility] [address] [place] [address] Dr. Natalya Arthur EGFR-AF AZERBAIJANI >60 Normal >=60 [facility] Comment on above: Performed By: #### C VDTBH #### [facility] [address] [place] [address] Dr. Natalya Arthur EGFR-NON AF AZERBAIJANI =60 Normal >=60 [facility] Comment on above: Performed By: #### C VDTBH #### [facility] [address] [address] [address] Natalya Arthur Globulin (S) [Mass/Vol] 4.5 g/dL Normal [facility] Comment on above: Performed By: #### C VDTBH #### [facility] [address] [address] [address] Natalya Arthur Glucose [Mass/Vol] 121 mg/dL Critically high 74-106 [facility] Comment on above: Performed By: #### C VDTBH #### [facility] [address] [address] [address] Natalya Arthur Potassium [Moles/Vol] 4.1 mmol/L Normal 3.4-5.0 [facility] Comment on above: Performed By: #### C VDTBH #### [facility] [address] [place] [address] Dr. Natalya Arthur Protein [Mass/Vol] 8.1 g/dL Normal 6.1-8.2 [facility] Comment on above: Performed By: #### C VDTBH #### [facility] [address] [place] [address] Dr. Natalya Arthur Sodium [Moles/Vol] 138 mmol/L Normal 137-145 [facility] Comment on above: Performed By: #### C VDTBH #### [facility] [address] [place] [address] Dr. Natalya Arthur Urea nitrogen [Mass/Vol] 17.0 mg/dL Normal 9.0-20.0 [facility] Comment on above: Performed By: #### C VDTBH #### [facility] [address] [place] [address] Dr. Natalya Arthur Urea nitrogen/Creatinine [Mass ratio] 14.4 mg/mg Normal [facility] Comment on above: Performed By: #### C VDTBH #### [facility] [address] [place] [address] Dr. Natalya Arthur TROPONIN, HIGH SENSITIVITYon 02-03-2021 HSTROP 49.0 pg/mL Critically high 4.0-42.[address] [facility] Comment on above: Result Comment: CUT- OFF POINTS HAVE BEEN ESTABLISHED BASED ON THE FOURTH UNIVERSAL DEFINITIONS OF MYOCARDIAL INFARCTION. THE UPPER REFERENCE LIMIT (URL) OF TROPONIN, DEFINED THE 99TH PERCENTILE OF cTnI DISTRIBUTION IN A REFERENCE POPULATION, HAS BEEN CONFIRMED THE DECISION THRESHOLD FOR NE DIAGNOSIS. Performed By: #### C VDTB #### [facility] [address] [place] [address] Dr. Natalya Arthur URINE MICROSCOPIC ONLYon AMORPHOUS CRYSTALS FEW Normal [facility] Comment on above: Performed By: #### E RUR, UMICRO #### [facility] [address] [place] [address] Dr. Natalya Arthur BACTERIA TRACE Abnormal NONE SEEN [facility] Comment on above: Performed By: #### E VINAY UMICRO #### [facility] [address] [place] [address] Dr. Natalya Arthur Bacteria identified Cx Nom (U) NOT INDICATED Normal [facility] Comment on above: Performed By: #### Arthur MCLEAN UMICRO #### [facility] [address] [place] [address] Dr. Natalya Arthur CAST NONE SEEN Normal NONE SEEN [facility] Comment on above: Performed By: #### Arthur MCLEAN UMICRO #### [facility] [address] [place] [address] Dr. Natalya Arthur Crystals LM Nom (Urine sed) SEEN Abnormal NONE SEEN [facility] Comment on above: Performed By: #### Arthur RODRIGUEZR UMICRO #### [facility] [address] [place] [address] Dr. Natalya Arthur Epithelial cells LM Ql (Urine sed) FEW Abnormal NONE SEEN /RARE [facility] Comment on above: Performed By: #### E RUR UMICRO #### [facility] [address] [place] [address] Dr. Natalya Arthur MUCOUS LARGE Abnormal NONE SEEN [facility] Comment on above: Performed By: #### E RUR UMICRO #### [facility] [address] [place] [address] Dr. Natalya Arthur RBC 10-20 Abnormal 0-2 [facility] Comment on above: Performed By: #### E MICK MCLEAN #### [facility] [address] [place], [place] [address] Dr. Natalya Arthur WBC 0-2 Abnormal NONE SEEN [facility] Comment on above: Performed By: #### E MICK MCLEAN #### [facility] [address] [place], [place] [address] Dr. Natalya Arthur US SINGLE QUAD RT UPPERon US SINGLE QUAD RT UPPER EXAMINATION: US SINGLE QUAD RT UPPER HISTORY: Right upper quadrant pain COMPARISON: No relevant comparison available. FINDINGS: The pancreas is poorly visualized due to bowel gas The liver is normal in size, contour and echotexture with no focal mass. Normal hepatopedal flow in the main portal vein. Limited visualization of the liver due to body habitus and bowel gas The gallbladder is normal in size. The gallbladder wall is thickened measuring up to 6.5 mm. No pericholecystic fluid. Multiple layering echogenic foci, cholelithiasis and/or gallbladder sludge. The common bile duct measures 4.8 mm, normal. Negative sonographic Gilmore sign. The right kidney measures 11.2 x 5.2 x 6.7 cm. The cortex measures 1.3 cm, thickened. Septated cystic anechoic lesion along the inferior pole measuring 3.7 x 3.3 x 3.1 m. IMPRESSION: Gallbladder wall thickening with underlying cholelithiasis and/or gallbladder sludge. Consider cholecystitis 3.7 cm lower pole right septated cortical cyst Electronically authenticated by: STEPHEN ARBOLEDA Date: 2021-02-03 19:08 Normal [facility] XR CHEST 1 Von 02-03-2021 XR CHEST 1 V EXAMINATION: XR CHES T 1 V HISTORY: Rib pain COMPARISON: 09/24/2020 TECHNIQUE: Portable AP FINDINGS: LUNGS: Low lung volumes. Mild bibasilar infiltrates left greater than right. The upper zones are clear. VASCULATURE: No increased pulmonary vasculature. PLEURA: No pneumothorax, effusion, or pleural thickening. CARDIAC: No cardiomegaly or cardiac silhouette abnormality. MEDIASTINUM: No visible mass or adenopathy. BONES: No fracture or visible bone lesion. OTHER: Negative. IMPRESSION: Mild bibasilar infiltrates left greater than right. Atelectasis favored Electronically authenticated by: STEPHEN ARBOLEDA Date: 2021-02-03 19:22 Normal [facility] Cardiovascular Lab Reporton 10-31-2018 Cardiovascular Lab Report [facility] Patient Name: [facility] Jagjit Lira MR #: [id number] Department of Physician: Artis Horner M.D. Division of Service Date: 10/30/2018 Cardiology Birthdate: 1945 Adult Cardiovascular Room #: [place] [address] Cardiovascular Laboratory Report CLINICAL PRESENTATION: Pankaj Payne is a 73-year-old male with past medical history significant for CAD, status post prior PCI of the left circumflex coronary artery in 02/2018; hypertension; hyperlipidemia; hypothyroidism. The patient was evaluated by Dr. Tenorio in the [place] [facility], [place] office. He reports worsening fatigue that was similar to his symptoms prior to his circumflex stent in 02/2018. He is referred for coronary angiogram. FINAL IMPRESSION: 1. Stable coronary artery disease. 2. The previously placed stent in the ostial left circumflex is widely patent. 3. The right PDA has intermediate coronary stenosis. This was further evaluated with physiological assessment using the IFR measurement. The IFR value was 0.98 which is within the normal range, and therefore, no stent procedures required for the right PDA intermediate stenosis. Medical therapy is recommended. 4. Incidental note of significant premature atrial contractions and runs of atrial tachycardia. Holter monitor will be arranged. PLAN: 1. Medical therapy for CAD as tolerated. 2. Continue aspirin and Plavix and atorvastatin. 3. Holter monitor will be arranged given the significant atrial arrhythmias that were noted. 4. Outpatient followup with Dr. Tenorio, [place] [facility]. PROCEDURES: Coronary angiogram, left heart catheterization, intravascular physiological coronary stenosis assessment including IFR measurement of the RCA and right PDA, conscious sedation 50 minutes. INDICATION: Fatigue; unstable angina, class 3 symptoms; known CAD. DESCRIPTION OF PROCEDURE: The patient was brought to the cardiac catheterization lab in a fasting state. Informed written consent was obtained. He was prepped and draped in usual sterile fashion over the right wrist. A time-out was performed. He was given Versed and fentanyl for sedation. A 1% lidocaine was infiltrated over the right radial artery. A 6-Gibraltarian Terumo Glidesheath slender was placed in the right radial artery. The radial anti-vasospasm cocktail of verapamil 2.5 mg and nitroglycerin 200 mcg was administered through the sheath. All catheter exchanges were made over the JobApp guidewire. Initially, a 5-Gibraltarian Venetie catheter was used to engage the coronary arteries. The Venetie catheter engaged the right coronary artery, but did not engage the left main coronary artery well. I then exchanged over wire to a 6-Gibraltarian JL3.5 catheter which engaged the left main coronary artery. Coronary angiogram was performed in multiple orthogonal views using hand injection of contrast. At this point, it was apparent that the right PDA had intermediate stenosis, I elected to proceed with IFR evaluation. The [place] Verrata wire was zeroed outside of the body and then normalized at the catheter guide tip. Heparin anticoagulation was used for this procedure and the ACT was maintained greater than 200 seconds. The [place] Verrata wire was then manipulated to the distal right PDA. The IFR was then measured, which is 0.98, which is in the negative range. At this point, the procedure was completed. All catheters and wires were removed from the body. The right radial sheath was removed and a TR band was applied to obtain hemostasis. There were no apparent complications. TOTAL CONTRAST: 60 mL. TOTAL CONSCIOUS SEDATION TIME: 50 minutes. TOTAL FLUOROSCOPY TIME: 8 minute 21 seconds, 0.75 Gy. FINDINGS: Hemodynamics: Aortic pressure 111/66 (MAP 81). Left ventricular pressure 104/left ventricular end-diastolic pressure 10 mmHg (LVEDP is normal.) CORONARY ANGIOGRAM: 1. Left main coronary artery: Patent. 2. Left anterior descending coronary artery: The LAD is a large vessel and gives rise to three major diagonal branches. The LAD and diagonal branches are patent. The distal to apical LAD has a focal 70% stenosis; however, it is at the end of the artery and therefore, medical therapy is recommended. 3. Left circumflex coronary artery: Circumflex is a moderate-sized vessel and gives rise to 3 obtuse marginal branches. The previously placed stent in the ostial circumflex into the OM1 is widely patent. The remainder of the circumflex and OM branches are patent. 4. Right coronary artery. The RCA is a large vessel and is dominant. The mid RCA has 30% stenosis. The distal RCA has diffuse 10% to 20% stenosis. The right PDA has ostial 50% stenosis and mid 50% stenosis. These areas were assessed with IFR with the IFR value 0.98, which is in the negative range, therefore, medical therapy was recommended. 5. The FRANKY branch is patent with 50% stenosis. Electronically Signed by: Josiah Schafer M.D. 11/12/2018 07:40 P Josiah Schafer M.D. Date Dict: 10/30/2018/01:51 P/Josiah Schafer M.D. Date Trans: 10/31/2018 05:07 Rishabh/katelin MURRAY_JN:[id number] cc: Frantz Conley M.D. [address] [place] [address] Frantz Tenorio M.D. [address] [place] [address] [facility] Operative Reporton 12-10-201 8 Operative Report Date of Surgery: 02/25/2018SURGEON: Hardeep Fraga D.O.PREOPERATIVE DIAGNOSIS: Nuclear sclerotic cataract, right eyePOSTOPERATIVE DIAGNOSIS: Nuclear sclerotic cataract, right eyeOPERATION: Cataract extraction with intraocular lens placement, right eyeANESTHESIA: TopicalCOMPLICATIONS: NoneESTIMATED BLOOD LOSS: ZeroPROCEDURE: The patient was brought to the Operating Room in the supineposition. After proper identification, the right eye was prepped anddraped in a sterile ophthalmic fashion. Two drops of Tetracaine wereplaced into the eye and a paracentesis was created at the two oclockposition. Approximately 0.1 cc of unpreserved Xylocaine was injected intothe anterior chamber and this was followed by Amvisc Plus. Using a 2.6 mmkeratome blade, a clear corneal incision was created at the twelve oclocklimbus. A cystotome was fashioned out of a 25 gauge needle and acurvilinear capsulorrhexis was begun and continued for 360 degrees withUtrata forceps. Balanced Salt Solution on a cannula was injected under theanterior capsule to hydrodissect as well as hydrodelineate the lens. Afterensuring mobility with a second handpiece, phacoemulsification wasperformed in a conquer and divide type fashion. After all nuclear materialhad been removed from the eye, IA was introduced into the anterior chamberand all residual cortical material was cleaned up. Additional Amvisc Pluswas injected into the posterior bag and a lens Model MX60 13.5 diopters wasinjected into the posterior bag as well. This was dialed into positionwith a secondhand piece and centered. After ensuring centration, IA wasreintroduced into the anterior chamber and all residual Amvisc Plus wasremoved from the eye. Balanced Salt Solution on a cannula was injectedinto the stroma of the clear corneal incision as well as the paracentesisto hydrate the wounds. Additional Balanced Salt Solution was injected intothe anterior chamber to pressurize the eye to approximately 20-22 mmHg byfinger tension. Weck-andrea sponges were then utilized to check the wounds pillo watertight. One drop of Iopidine, one drop of prednisolone acetate andone drop of Ocuflox were placed into the eye and a shield was placed overtop. The patient was sent to the Postoperative Area in satisfactorycondition to follow up the following day for postoperative care.Hardeep Fraga D.O.glsDictated: 02/25/2018 #[id number]: 02/25/2018 #[id number]: Hardeep Fraga D.O. [facility] Comment on above: Result Comment: Elec tronically Signed By: Hardeep Fraga DO\.br\Date and Time Signed: 03/03/18 12:57 EST Cardiovascular Lab Reporton 03-01-2018 Cardiovascular Lab Report [facility] Patient Name: [facility] Pankaj MR #: [id number] Department of Physician: Artis Pinedo M.D. Division of Service Date: 02/28/2018 Cardiology Birthdate: 1945 Adult Cardiovascular Room #: [id number] [place] [address] Cardiovascular Laboratory Report FINAL IMPRESSION: 1. Successful balloon angioplasty reduction of a 90% ostial circumflex stenosis to 0 using a 2.5 x 16 Synergy stent. 2. 80% stenosis in the distal LAD. 3. 80% stenosis in the PDA branch of the right coronary artery. 4. 40-50% stenosis in mid LAD. INDICATION: Pankaj Payne is a 72-year-old male, who has been having some fatigue, but he denies angina. He underwent a stress test, which was positive for infarct. However, it was limited by soft tissue artifacts. Given his large infarct on the stress test, he was considered for heart catheterization. PROCEDURES: 1. Coronary angiography. 2. Balloon angioplasty in the circumflex. 3. IC nitroglycerin. RECOMMENDATIONS: 1. We will continue medical therapy for coronary artery disease including aspirin, Plavix, and Lipitor. 2.. Possible elective intervention on the distal right coronary artery in 3-4 weeks depending upon his symptoms. METHODS: After risks, benefits, and alternatives were explained to the patient, he was brought to catheterization lab in a fasting state. Right neck was draped and prepped in the usual sterile fashion. Using a modified Seldinger technique, a 5-Gibraltarian micropuncture was placed in right internal jugular vein. This was upsized to a regular 6-Gibraltarian sheath. Then, a 6-Gibraltarian Trinh was used for right heart catheterization. The right heart catheterization was performed. Access of the right radial artery under ultrasound guidance and in the right ulnar artery under ultrasound guidance a 6-Gibraltarian sheath was placed and then used a 6-Gibraltarian JL3.5 and JR5 catheter for coronary angiography. After baseline angiography was performed, the case was discussed by his referring application chemist, Dr. Tenorio, as well as with the patient's family. Also given multiple lesions in right , circumflex coronary artery and a distal LAD lesion, we also discussed CABG as an option. Pt preferred percutaneous intervention as he is the only care rep for his . We decided to treat circumflex. 6-Gibraltarian XB 3.0 guide was used to engage the left main coronary ostium. A 0.014 [place] wire was passed across the proximal circumflex into the 1st obtuse marginal branch. Predilatation was performed using a 2.5 x 15 balloon. Then, we deployed a 2.5 x 16 Synergy stent. This was post-dilated with a 2.75 x 15 noncompliant at 24 atmospheres. Final angiography showed good stent result in the proximal circumflex into the 1st obtuse marginal branch. The [place] circumflex stayed open. There were no complications. At this point of time, guiding catheter was taken out. Hemostasis were obtained with TR band. There were no complications. HEMODYNAMIC DATA: 1. AO 97/52, mean is 73. 2. RA 8/6, mean 3. 3. RV 27/5, mean 5. 4. PA 27/7, mean 14. 5. Wedge 11/10. 6. PA sat 71%, AO sat is 99%, cardiac output 4.6, cardiac index 2.42. TOTAL FLUORO TIME: 8.5 minutes. TOTAL CONTRAST: 90 mL. CORONARY ANGIOGRAPHY: 1. Left main: This is a moderate-sized vessel, bifurcates into LAD and circumflex. Left main is angiographically normal. 2. LAD: This shows a discrete 50% in the midvessel and another 70% in the distal vessel. There is evidence of calcification within this vessel. There are multiple diagonal branches coming off the mid LAD with mild disease 4. Circumflex: This shows an ostial 90% stenosis extending into OM. This was treated with a 2.5 x 16 Synergy and post-dilated with a 2.75 noncompliant. 6. Right coronary artery: This shows evidence of calcification with lesions in the proximal vessel. Distal right coronary artery before bifurcation shows a high-grade stenosis. The ostium of the PDA has a couple sequential high-grade lesions. The posterolateral branch appears also to be diffusely diseased. Electronically Signed by: Gage Barahona M.D. 03/13/2018 01:57 P Gage Barahona M.D. Date Dict: 02/28/2018/03:27 P/Gage Barahona M.D. Date Trans: 03/01/2018 03:16 Rishabh/katelin MURRAY_JN:[id number] cc: JYOTI Villalobso [address] [place] [address] Frantz Conley M.D. [address] [facility] [address] Frantz Tenorio M.D. [address] [facility] [address] [facility] History and Physicalon 02-28 History and Physical MR#: [id number] [facility] Pt. Name: Pankaj Payen Admitted: 02/28/2018 Date of : 1945 Attending Physician: Hill Lopez M.D. Room #: CC Discharge Date: HISTORY AND PHYSICAL CHIEF COMPLAINT: Abnormal stress test, status post PCI. HISTORY OF PRESENT ILLNESS: The patient is a 72-year-old male with a past medical history of hypothyroidism, who presented today for an elective cardiac catheterization after he was found to have a positive stress test. The patient recently established care with a primary care physician. His PCP ordered a stress test, which was positive. The patient was scheduled for an elective cardiac catheterization. The patient was found to have a lesion in the left circumflex and a stent was placed. The patient is doing well post cardiac catheterization. The patient is virally stable. The patient denies fever, chest pain, shortness of breath, abdominal pain, nausea, vomiting, diarrhea. The patient states that I am healthy. REVIEW OF SYMPTOMS: All 14 review of symptoms are negative, except that is mentioned in the history of present illness. ALLERGIES: No known allergies. MEDICATIONS: Medications were reviewed and reconciled. PAST MEDICAL HISTORY: Hypothyroidism. PAST SURGICAL HISTORY: Bilateral cataract removal. SOCIAL HISTORY: The patient is never a smoker. The patient denies alcohol use. The patient denies illicit drug use. FAMILY HISTORY: His father from tuberculosis. His mother from liver disease. PHYSICAL EXAMINATION: VITAL SIGNS: Vitals are pending. GENERAL: No acute distress. Alert, oriented x3. EYES: Pupils are reactive to light. LUNGS: Clear to auscultation bilaterally. No wheezing, rhonchi, or rales. CARDIOVASCULAR: Regular rate and rhythm. No murmurs, rubs, or gallops. Normal S1/S2. ABDOMEN: Soft, nontender, nondistended. EXTREMITIES: No bilateral lower extremity edema. SKIN: Warm and dry to touch. LABORATORY DATA: Laboratory results are pending. EKG showed normal sinus rhythm with PVCs. ASSESSMENT AND PLAN: The patient is a 72-year-old male, who presented for an elective cardiac catheterization, was found to have a lesion in the left circumflex, status post Synergy stent placement. The patient is doing well post cardiac catheterization. The patient is virally stable. We will admit for observation. RCMS monitoring. Monitor vitals every 4 hours. We will start aspirin, statin, and Plavix. Resume home dose of levothyroxine 100 mcg daily. Coordinate care with Cardiology. Electronically Signed by: Hill Lopez M.D. 03/03/2018 09:15 P Hill Lopez M.D. Date Dict: 02/28/2018/04:14 P/Hill Lopez M.D. Date Trans: 02/28/2018 04:44 P/mmo [id number]:[id number] Normal [facility] Coding Summary.on 02-26-2018 Coding Summary. CODING DATE: 018 FINAL [facility] STATUS: Home (Routine DC) PAYOR: Medicare APC DESCRIPTION 5491 Level 1 Intraocular Procedures ADMIT DX: REASON FOR VISIT DX: H25.11 Age-related nuclear cataract, right eye FINAL DX: PRINCIPAL: H25.11 Age-related nuclear cataract, right eye SECONDARY: H25.041 Posterior subcapsular polar age-related cataract, right eye E03.9 Hypothyroidism, unspecified PYMT PROC APC STAT DESCRIPTION DOCTOR NAME DATE 54592 5491 J1 Extracapsular cataract Hardeep Fraga DO 02/25/2018 removal with insertion of intraocular lens prosthesis (1 stage procedure), manual or mechanical technique (eg, irrigation and aspiration or phacoemulsification) RT Right side (used to identify procedures performed on the right side of the body) NOTE: The code number assigned matches the documented diagnosis and / or procedure in the patient's chart. However, the narrative phrase printed from the coding software may appear abbreviated, or result in slightly different terminology. Coded By: Lashae Caldwell Date Saved: 02/26/2018 04:03 pm Normal [facility] Main OR Intraoperative Recor don 02-26-2018 Main OR Intraoperative Record IntraOp Document Type FT Summary Primary Physician: Hardeep Fraga DO Finalized Date/Time: 02/26/18 14:08:09 Pt. Name: PANKAJ PAYNE /Sex: 1945 Male Med Rec #: [id number] Physician: Hardeep Fraga DO Financial #: [id number] Pt. Type: A Room/Bed: [place] [address] Admit/Disch: 02/25/18 08:23:00 - 02/25/18 12:00:00 Institution: Case Times FT Entry 1 Patient Times In Room 02/25/18 11:00:00 Out Room 02/25/18 11:18:00 Procedure Times Start 02/25/18 11:05:00 Stop 02/25/18 11:16:00 Anesthesia Times Last Modified By: Elayne Agosto CST 02/25/18 11:17:41 General Comments: 02/26/18 Chart opened to review and send charges Estela Agosto CST Case Attendance FT Entry 1 Entry 2 Entry 3 Case Attendee Hardeep Fraga DO RN, Arnold Rodas BSN, RNSussy Role Performed Surgeon - Primary Retail Cashier - Primary Retail Cashier - Primary Time In 02/25/18 11:00:00 02/25/18 11:00:00 02/25/18 11:00:00 Time Out 02/25/18 11:18:00 02/25/18 11:18:00 02/25/18 11:18:00 Procedure CATARACT EXTRACTION W/ CATARACT EXTRACTION W/ CATARACT EXTRACTION W/ INTRAOCULAR LENS(Right) INTRAOCULAR LENS(Right) INTRAOCULAR LENS(Right) Comments Last Modified By: Tiffanie RN, Arnold Moreno RN, Arnold Nathan RN 02/25/18 11:17:52 02/25/18 11:17:52 02/25/18 11:17:52 Entry 4 Entry 5 Case Attendee Zoila Mtz CST, CST, Anah R Role Performed Scrub - Primary Scrub - Other Time In 02/25/18 11:00:00 02/25/18 11:00:00 Time Out 02/25/18 11:18:00 02/25/18 11:18:00 Procedure CATARACT EXTRACTION W/ CATARACT EXTRACTION W/ INTRAOCULAR LENS(Right) INTRAOCULAR LENS(Right) Comments Last Modified By: Tiffanie Arnold DAMON RN, Kail M 02/25/18 11:17:52 02/25/18 11:17:52 Perioperative Protocols FT Pre-Care Text: Implements protective measures prior to operative or invasive procedure, confirms identity before the operative or invasive procedure, verifies operative procedure, surgical site, and laterality Entry 1 Procedure(s) CATARACT EXTRACTION W/ Patient Identity Birthday, ID Band INTRAOCULAR LENS(Right) Verified (select at Check, Patient least 2): Participation Consents / H and P HandP, Surgery/Procedure Operative Site Present Verified Consent Marking Verified Surgical Site Yes Laterality Verified Yes Verified Procedure Verified Yes Correct Patient Yes Position Verified Availability Equipment, Implant, Prep Dry n/a Verified (If Medication Applicable) PreOp Antibiotic No Time Out Hardeep Fraga DO, Given Participants Arnold Moreno RN, Weisenburger BSN, RN, Smith Hi BUSH HOG OPERATOR, Nessa Bhardwaj CST, Jeannine López Time Out Complete 02/25/18 11:02:00 Outcomes Met? Yes Last Modified By: Arnold Moreno RN 02/25/18 11:04:57 Post-Care Text: The patient is free from signs and symptoms of injury caused by extraneous objects Allergy Information FT Pre-Care Text: Verifies allergies Entry 1 Allergies Reviewed? Yes Allergies Reviewed Self/Patient With Outcomes Met? Yes Last Modified By: Arnold Moreno RN 02/25/18 10:05:55 Post-Care Text: The patient received appropriate medication(s) safely administered during the perioperative period Surgical Procedures FT Entry 1 Procedure Description Procedure CATARACT EXTRACTION W/ Modifiers Right INTRAOCULAR LENS IMPLANTATION Surgeon Description right CATARACT EXTRACTION W/ INTRAOCULAR LENS IMPLANTATION Primary Procedure Yes Primary Surgeon Hardeep Fraga DO Start 02/25/18 11:05:00 Stop 02/25/18 11:16:00 Anesthesia Type Local Surgical Service Ophthalmology Wound Class 1 - Clean Last Modified By: Arnold Moreno RN 02/25/18 11:17:56 General Case Data FT Pre-Care Text: Classifies surgical wound, implements aseptic technique, initiates traffic control Entry 1 Case Information OR OR 3 FT Case Level Level 2 Wound Class 1 - Clean Specialty Ophthalmology Preop Diagnosis CATARACT RIGHT EYE Postop Same As Preop Yes Postop Diagnosis CATARACT RIGHT EYE Outcomes Met? Yes Last Modified By: Arnold Moreno RN 02/25/18 10:06:19 Post-Care Text: The patient is free from signs and symptoms of infection Skin Assessment (Pre Procedure) FT Pre-Care Text: Implements protective measures to prevent skin/ tissue injury due to thermal or mechanical sources Evaluates for signs and symptoms of physical injury to skin and tissue Entry 1 Skin Integrity Warm, Dry, [place], Unable Outcomes Met? Yes to Visualize Last Modified By: Arnold Moreno RN 02/25/18 10:07:22 Post-Care Text: The patient is free from signs and symptoms of injury caused by extraneous objects General Comments: pt partially clothed, unable to assess all of skin/ hetal rn Patient Positioning FT Pre-Care Text: Identifies physical alterations that require additional precautions for procedure-specific positioning, verifies presence of prosthetics or corrective devices, positions the patient, evaluates the patient for signs and symptoms of injury as a result of positioning Entry 1 Procedure CATARACT EXTRACTION W/ Additional folded towel under INTRAOCULAR LENS(Right) Information head, procedure performed on eye cart, side rails up Body Position Supine Feet Uncrossed? Yes Left Arm Position Resting at Side Right Arm Position Resting at Side Left Leg Position Extended Right Leg Position Extended Positioning Device Pillow Large Under Knees Press Points Checked Yes By Arnold Moreno RN, Outcomes Met? Yes Clark MARAVILLA, Sussy DAMON Last Modified By: Arnold Moreno RN 02/25/18 10:08:20 Post-Care Text: The patient is free from signs and symptoms of injury related to positioning Patient Care Devices FT Pre-Care Text: Implements protective measures to prevent skin/ tissue injury due to thermal or mechanical sources Entry 1 Entry 2 Entry 3 Equipment Type MICROSCOPE EYE[F] MONITOR CHARGE SURGERY PHACO UNIT[F] [F] Equipment Number Equipment Setting Outcomes Met? Yes Yes Yes Last Modified By: Arnold Moreno RN, RN, Kail M Tinker RN, Kail M 02/25/18 10:08:34 02/25/18 10:08:34 02/25/18 10:08:34 Post-Care Text: The patient is free from signs and symptoms of injury caused by extraneous objects Transport To OR FT Pre-Care Text: Transports according to individual needs. Evaluates for signs and symptoms of skin and tissue injury as a result of transfer or transport Entry 1 Via Cart By Arnold Moreno RN Safety Precautions Side Rails Up Outcomes Met? Yes Last Modified By: Arnold Moreno RN 02/25/18 10:08:43 Post-Care Text: The patient is free from signs and symptoms of injury related to transfer/transport Counts Verification FT Pre-Care Text: Performs required counts Entry 1 Entry 2 Procedure(s) CATARACT EXTRACTION W/ CATARACT EXTRACTION W/ INTRAOCULAR LENS(Right) INTRAOCULAR LENS(Right) Type Initial Final Items Instruments Instruments Status Correct Correct Time By Ruffing BUSH HOG OPERATOR, Zoila E Ruffing BUSH HOG OPERATOR, Zoila E Outcomes Met? Yes Yes Last Modified By: Arnold Moreno RN, RN, Kail M 02/25/18 10:09:08 02/25/18 10:09:08 Post-Care Text: The patient is free from signs and symptoms of injury caused by extraneous objects Skin Prep FT Pre-Care Text: Performs skin preparations Entry 1 Procedure CATARACT EXTRACTION W/ Prep Area operative site, right INTRAOCULAR LENS(Right) eye Prep Agents Saline Rinse, Betadine Scrub and Solution Hair Removal Methods Not Indicated By Clark MARAVILLA RN, Outcomes Met? Yes Sussy Last Modified By: Arnold Moreno RN 02/25/18 10:09:23 Post-Care Text: The patient is free from signs and symptoms of infection Departure From OR FT Pre-Care Text: Transports according to individual needs. Evaluates for signs and symptoms of skin and tissue injury as a result of transfer or transport. Entry 1 Via Cart Safety Precautions Side Rails Up PostOp Destination Pre Surgery/ASU Transported By Arnold Moreno RN Patient Status Stable Skin. Condition Warm, [place], Dry Airway Maintenance Oxygen in Use? No Outcomes Met? Yes Last Modified By: Arnold Moreno RN 02/25/18 10:11:00 Post-Care Text: The patient is free from signs and symptoms of injury related to transfer/transport General Comments: asu called, transported to asu by or transporter/ hetal damon Dressing/Packing FT Pre-Care Text: Administers care to wound sites Entry 1 Type Dressing Site and Details right eye with eye shield and paper tape Outcomes Met? Yes Last Modified By: Arnold Moreno RN 02/25/18 10:11:29 Post-Care Text: The patient is free from signs and symptoms of infection Medication Administration FT Pre-Care Text: Verifies allergies, administers prescribed medications and solutions, administers prescribed antibiotic therapy and immunizing agents as ordered, evaluates response to medications Administers prescribed medications and solutions Entry 1 Expiration Date Yes Outcomes Met? Yes Verified Last Modified By: Arnold Moreno RN 02/25/18 10:11:38 Post-Care Text: The patient received appropriate medication(s) safely administered during the perioperative period [facility] please see scanned medication reconcilliation form for medications used at the field during the procedure. Implant Log FT Pre-Care Text: Records devices implanted during the operative or invasive procedure Entry 1 Implant/Explant Implant Implant Identification Description ROSENDA [id number] 12.50MM Serial Number [id number] 13.50 [[id number]][F] Lot Number [id number] [employer] Catalog ?# [id number][F] Expiration Date 05/23/19 Usage Data Implant Site right eye Quantity 1 Outcomes Met? Yes Last Modified By: Arnold Moreno RN 02/25/18 11:08:01 Post-Care Text: The patient is free from signs and symptoms of injury caused by extraneous objects Case Comments Finalized By: Elayne Agosto CST Document Signatures Signed By: Arnold Moreno RN 02/25/18 11:18 Elayne Agosto CST 02/26/18 14:08 Normal [facility] History and Physicalon 02-25 History and Physical HOSPITAL REGULATION S: ALL Positive Important Negative Findings Shall BeRecordedDATE ADMITTED: 02/25/2018HISTORY AND PHYSICAL EXAMINATIONHISTORY: The patient is a 72 year old white male presenting complaining ofa steady decline of visual acuity of his right eye. This eye has beenaffected over the last several years, worsening gradually over the lasttwelve months. He states with this eye no longer does he feel comfortableseeing distance as well as near. He spends a lot of time on the computerand he is having trouble in this state. Also, he states having difficultyat nighttime while driving because of oncoming headlights creating glare.PAST OCULAR HISTORY: Unchanged from previously dictated.PAST MEDICAL HISTORY: Unchanged from previously dictated.PSYCHOSOCIAL HISTORY: Unchanged from previously dictated.MEDICATIONS: Unchanged from previously dictated.ALLERGIES TO MEDICATIONS: Unchanged from previously dictated.REVIEW OF SYSTEMS: Unchanged from previously dictated.PHYSICAL EXAMINATION: Unchanged from previously dictated.ASSESSMENT/FRANKY N: Visually significant cataract, right eye. After risks,benefits, alternatives as well as expectations were delivered to thepatient, he elected to go forward with cataract removal. He understandsthose risks to include but are not limited to infection, bleeding, loss ofvision or loss of the eye itself. Secondly, he understands thatpostoperatively he is likely to require spectacle correction for his bestvisual acuity. Thirdly, a complete ophthalmic examination was performedand there is not determined to be any other source of vision decline otherthan that of the cataract. After understanding all risks as well asexpectations, he elected to go forward with the procedure as listed above,and will be doing so in the near future.Hardeep Fraga D.O.aekDictated: 02/24/2018 #[id number] 02/25/2018 #[id number]: Hardeep Fraga D.O. [facility] Comment on above: Result Comment: Elec tronically Signed By: Hardeep Fraga DO\.br\Date and Time Signed: 02/25/18 10:24 EST Inpatient Patient Summaryon 02-25-2018 In[facility] Dis[facility] InstructionsPERSON INFORMATION Name: PANKAJ PAYNE PHYSICIANS Admitting Physician: Hardeep Fraga DOAttending Physician: Hardeep Fraga DO PCP: FRANTZ CONLEY MD BDischarge Diagnosis: Cataract Comment: PATIENT EDUCATION INFORMATIONInstructions :Medication Leaflets:Follow up:With: Address: When: Hardeep Fraga [facility], [address], [facility] [address] [place] [address] Business (1) Within 1 to 2 days MEDICATION LISTComment: [facility] Main OR PACU II [place] Main OR PACU II Record PACU Phase II Document Type FT Summary Primary Physician: Hardeep Fraga DO Finalized Date/Time: 02/25/18 12:33:41 Pt. Name: PANKAJ PAYNE D.O.B./Sex: 1945 Male Med Rec #: [id number] Physician: Hardeep Fraga DO Financial #: [id number] Pt. Type: A Room/Bed: [place] [address] Admit/Disch: 02/25/18 08:23:55 - Institution: Case Times PACU II FT Pre-Care Text: Identifies barriers to communication and implements measures to provide psychological support and determines knowledge level Develops individualized plan of care, and ensures continuity of care Maintains patient's dignity and privacy, and maintains patient confidentiality Identifies and reports philosophical, cultural, and spiritual beliefs and values Identifies individual values and wishes concerning care administers prescribed antibiotic therapy and immunizing agents as ordered, Evaluates postoperative tissue perfusion Implements thermoregulation measures, and monitors body temperature Evaluates postoperative respiratory status Evaluates postoperative cardiac status Evaluates postoperative neurological status Assesses pain control, collaborated in initiating patient-controlled analgesia and implements alternative methods of pain control Verifies allergies, administers prescribed medications and solutions, evaluates response to medications Entry 1 In PACU II 02/25/18 11:20:00 Discharge from PACU 02/25/18 12:00:00 II Outcomes Met? Yes Last Modified By: Lissa Pope RN 02/25/18 12:33:39 Post-Care Text: The patient demonstrates knowledge of the expected response to the operative or invasive procedure The patient's care is consistent with the individualized perioperative plan of care The patient's right to privacy is maintained The patient's value system, lifestyle, ethnicity, and culture are considered, respected, and incorporated into the perioperative plan of care The patient participates in decisions affecting his or her perioperative plan of care. The patient is free from signs and symptoms of infection The patient has wound/tissue perfusion consistent with or improved from baseline levels established preoperatively The patient is at or returning to normothermia at the conclusion of the immediate postoperative period The patient's respiratory function is consistent with or improved from baseline levels established preoperatively The patient's cardiovascular status is consistent with or improved from baseline levels established preoperatively The patient's neurological status is consistent with or improved from baseline levels established preoperatively The patient demonstrates and/or reports adequate pain control throughout the perioperative period The patient received appropriate medication(s), safely administered during the perioperative period Finalized By: Lissa Pope RN Document Signatures Signed By: Lissa Pope RN 02/25/18 12:33 Normal [facility] Main OR Preoperative Recordo n 02-25-2018 Main OR Preoperative Record PreOp Document Type FT Summary Primary Physician: YuridiaHardeep wong DO Finalized Date/Time: 02/25/18 11:05:22 Pt. Name: PANKAJ PAYNE/Sex: 1945 Male Med Rec #: [id number] Physician: Hardeep Fraga DO Financial #: [id number] Pt. Type: A Room/Bed: [facility]/ Admit/Disch: 02/25/18 08:23:55 - Institution: Case Times PreOp FT Pre-Care Text: Verifies consent for planned procedure, identifies individual values and wishes concerning care, includes family members in perioperative teaching Entry 1 Patient Times. In Pre Surgery 02/25/18 08:25:00 Out Pre Surgery 02/25/18 10:55:00 Outcomes Met? Yes Last Modified By: Arnold Moreno RN 02/25/18 11:05:22 Post-Care Text: The patient participates in decisions affecting his or her perioperative plan of care Finalized By: Arnold Moreno RN Document Signatures Signed By: Arnold Moreno RN 02/25/18 11:05 Normal [facility] Main OR Preoperative Record Holding Area Document Type FT Summary Primary Physician: Hardeep Fraga DO Finalized Date/Time: 02/25/18 08:46:23 Pt. Name: PANKAJ PAYNE/Sex: 1945 Male Med Rec #: [id number] Physician: Hardeep Fraga DO Financial #: [id number] Pt. Type: A Room/Bed: [facility]/ Admit/Disch: 02/25/18 08:23:55 - Institution: Case Times Holding FT Pre-Care Text: Verifies consent for planned procedure, identifies individual values and wishes concerning care, includes family members in perioperative teaching Secures patient's records' belongings, and valuables, maintains patient's dignity and privacy, and maintains patient confidentiality Entry 1 In Holding 02/25/18 08:25:00 Outcomes Met? Yes Last Modified By: Lissa Pope RN 02/25/18 08:40:31 Post-Care Text: The patient participates in decisions affecting his or her perioperative plan of care The patient's right to privacy is maintained Surgery Checklist FT Entry 1 Patient Birthday, ID Band Procedure Surgical Consent, With Identification: Check, Patient Verification: Patient Participation NPO after Midnight: No Date/Time: 02/25/18 07:30:00 Personal Items: Cataract Lens Implant, Complaints of Pain: No Glasses Operative Site Yes Marked By: YADIRA DAMON Marking: Does Patient Smoke No Patient states Yes Comment - Adult REI- postop adult Supervision supervision available Case Cancelled in No Holding Area see comments below for reason Last Modified By: Lissa Pope RN 02/25/18 08:46:18 Finalized By: Lissa Pope RN Document Signatures Signed By: Lissa Pope RN 02/25/18 08:46 Normal [facility] Patient Education - Texton 1 04-28-2017 Patient Education - Text [facility] Progress Note-Physicianon Protein mass conc Patient: PANKAJ PAYNE Age: 72 years Sex: Male : 1945 Associated Diagnoses: None Author: Hardeep Fraga DO Postoperative Information Date/ Time: 02/25/18 11:17:00 Preoperative Diagnosis: Senile Cataract - OD . Postoperative Diagnosis: same . Procedure: Cataract Extraction with IOL placement - OD. Anesthesia Method: Local. Performed by: Hardeep Fraga DO. Specimens Removed: none . Estimated Blood Loss: 0 ml. Complications: None. Normal [facility] Comment on above: Result Comment: Elec tronically Signed By: Hardeep Fraga DO\.br\Date and Time Signed: 02/25/18 11:17 EST Operative Reporton 02-17- 8 Operative Report Date of Surgery: 02/11/2018SURGEON: Hardeep Fraga D.O.PREOPERATIVE DIAGNOSIS: Nuclear sclerotic cataract, left eyePOSTOPERATIVE DIAGNOSIS: Nuclear sclerotic cataract, left eyeOPERATION: Cataract extraction with intraocular lens placement, left eyeANESTHESIA: TopicalCOMPLICATIONS: NoneESTIMATED BLOOD LOSS: ZeroPROCEDURE: The patient was brought to the Operating Room in the supineposition. After proper identification, the left eye was prepped and drapedin a sterile ophthalmic fashion. Two drops of Tetracaine were placed intothe eye and a paracentesis was created at the two oclock position.Approximately 0.1 cc of unpreserved Xylocaine was injected into theanterior chamber and this was followed by Amvisc Plus. Using a 2.6 mmkeratome blade, a clear corneal incision was created at the twelve oclocklimbus. A cystotome was fashioned out of a 25 gauge needle and acurvilinear capsulorrhexis was begun and continued for 360 degrees withUtrata forceps. Balanced Salt Solution on a cannula was injected under theanterior capsule to hydrodissect as well as hydrodelineate the lens. Afterensuring mobility with a second handpiece, phacoemulsification wasperformed in a conquer and divide type fashion. After all nuclear materialhad been removed from the eye, IA was introduced into the anterior chamberand all residual cortical material was cleaned up. Additional Amvisc Pluswas injected into the posterior bag and a lens Model MX60 17.0 diopters wasinjected into the posterior bag as well. This was dialed into positionwith a secondhand piece and centered. After ensuring centration, IA wasreintroduced into the anterior chamber and all residual Amvisc Plus wasremoved from the eye. Balanced Salt Solution on a cannula was injectedinto the stroma of the clear corneal incision as well as the paracentesisto hydrate the wounds. Additional Balanced Salt Solution was injected intothe anterior chamber to pressurize the eye to approximately 20-22 mmHg byfinger tension. Weck-andrea sponges were then utilized to check the wounds pillo watertight. One drop of Iopidine, one drop of prednisolone acetate andone drop of Ocuflox were placed into the eye and a shield was placed overtop. The patient was sent to the Postoperative Area in satisfactorycondition to follow up the following day for postoperative care.Hardeep Fraga D.O.lkrDictated: 02/11/2018 #[id number]: 02/12/2018 #[id number]: Hardeep Fraga D.O. [facility] Comment on above: Result Comment: Elec tronically Signed By: Hardeep Fraga DO\.br\Date and Time Signed: 02/17/18 08:38 EST Coding Summary.on 02-12-2018 Coding Summary. 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 However, the narrative phrase printed from the coding software may appear abbreviated, or result in slightly different terminology. Revised Coded By: Celeste Abbasi Revised Date Saved: 02/12/2018 11:05 am Normal [facility] Main OR Preoperative Recordo n 02-12-2018 Main OR Preoperative Record Holding Area Document Type FT Summary Primary Physician: Hardeep Fraga DO Finalized Date/Time: 02/12/18 07:26:59 Pt. Name: PANKAJ PAYNE/Sex: 1945 Male Med Rec #: [id number] Physician: Hardeep Fraga DO Financial #: [id number] Pt. Type: A Room/Bed: [facility]/ Admit/Disch: 02/11/18 08:31:00 - 02/11/18 12:00:00 Institution: Case Times Holding FT Pre-Care Text: Verifies consent for planned procedure, identifies individual values and wishes concerning care, includes family members in perioperative teaching Secures patient's records' belongings, and valuables, maintains patient's dignity and privacy, and maintains patient confidentiality Entry 1 In Holding 02/11/18 08:40:00 Outcomes Met? Yes Last Modified By: RENITA Lr RN, Amber R 02/11/18 08:48:24 Post-Care Text: The patient participates in decisions affecting his or her perioperative plan of care The patient's right to privacy is maintained Surgery Checklist FT Entry 1 Patient Birthday, ID Band Procedure Surgical Consent, With Identification: Check, Patient Verification: Patient Participation NPO after Midnight: n/a Date/Time: 02/11/18 07:45:00 Personal Items jacket, eye drops left Complaints of Pain: n/a Comment: in room, no valuables Operative Site Yes Marked By: Roberto Carlos DAMON Marking: Location: left eye Patient states Yes Comment - Adult family in waiting room postop adult Supervision supervision available Case Cancelled in No Holding Area see comments below for reason Last Modified By: RENITA Lr RN, Amber R 02/11/18 08:50:03 Finalized By: HEMANT Macdonald RN, Andrea Document Signatures Signed By: HEMANT Macdonald RN, Andrea 02/12/18 07:26 Normal [facility] History and Physicalon 02-11 History and Physical HOSPITAL REGULATION S: ALL Positive Important Negative Findings Shall BeRecordedDATE ADMITTED: 02/11/2018HISTORY: Mr. Payne is a 72 year old white male presenting complainingof a steady decline of visual acuity of his left eye. The gradual onset ofthis has occurred over the previous three years. He notes havingdifficulty with driving at nighttime with glare from oncoming headlights.He also notes having difficulty with the computer screen and watchingtelevision.PAST OCULAR HISTORY: He denies.PAST MEDICAL HISTORY: Fatty liver and hypothyroidism.PSYCHOSO CIAL HISTORY: He denies tobacco, alcohol, or recreational drugabuse.SYSTEMIC MEDICATIONS:1. Fluzone.2. Levothyroxine.ALLERGIES : He denies.REVIEW OF SYSTEMS: No pertinent positives.PHYSICAL EXAMINATIONVITAL SIGNS: Blood pressure is measured at 117/77 with a respiration rateof 12 and pulse of 75.GENERAL: He is awake, alert and oriented times three, well developed, wellnourished, in no acute distress.HEART: Regular rate and rhythm.LUNGS: Clear bilaterally.ABDOMEN: Soft, non-tender, non-distended.EXTREMITI ES: No pitting edema.OPHTHALMIC: Ophthalmic examination revealed a visual acuity of 20/60-1 inthe right eye and 20/100+2 in the left eye. Pupils, motility, musclebalance and confrontational visual bustamante were within normal limitsbilaterally. Pressures were measured at 16 bilaterally. Slit lampexamination revealed blepharitis with a severe decrease in tear filmbilaterally. Conjunctivae, cornea, anterior chamber and iris were withinnormal limits bilaterally. Lens status demonstrated 2 to 3+ nuclearsclerosis with trace PSC in the right eye and 2 to 3+ nuclear sclerosiswith 1+ PSC in the left eye. Fundus examination revealed a good view withgood dilation bilaterally. Optic discs, maculae, vessels, periphery andvitreous were within normal limits bilaterally.ASSESSMENT/ PLAN: Visually significant cataract, left eye. After risks,benefits, alternatives as well as expectations were delivered to thepatient, he elected to go forward with cataract removal. He understandsthose risks to include but are not limited to infection, bleeding, loss ofvision or loss of the eye itself. Secondly, he understands thatpostoperatively he is likely to require spectacle correction for his bestvisual acuity. Thirdly, a complete ophthalmic examination was performedand there is not determined to be any other source of vision decline otherthan that of the cataract. After understanding all risks as well asexpectations, he elected to go forward with the procedure as listed above,and will be doing so in the near future.Hardeep Fraga D.O.aekDictated: 02/10/2018 #[id number] 02/11/2018 #[id number]: Hardeep Fraga D.O. [facility] Comment on above: Result Comment: Elec tronically Signed By: Hardeep Fraga DO\.br\Date and Time Signed: 02/11/18 08:10 EST Inpatient Patient Summaryon 02-11-2018 Inpatient [facility] Dis[facility] InstructionsPERSON INFORMATION Name: PANKAJ PAYNE PHYSICIANS Admitting Physician: Hardeep Fraga DOAttending Physician: Hardeep Fraga DO PCP: FRANTZ CONLEY MD BDischarge Diagnosis: Cataract Comment: PATIENT EDUCATION INFORMATIONInstructions :ROSIE- After Surgery Eye (Custom)Medication Leaflets:Follow up:With: Address: When: Hardeep Rosie [facility] [address] [place] [address] Business (1) Within 1 to 2 days MEDICATION LISTComment: Normal [facility] Main OR Intraoperative Recor don 02-11-2018 Main OR Intraoperative Record IntraOp Document Type FT Summary Primary Physician: Hardeep Fraga DO Finalized Date/Time: 02/11/18 13:09:49 Pt. Name: PAYNEPANKAJ D.O.B./Sex: 1945 Male Med Rec #: [id number] Physician: Hardeep Fraga DO Financial #: [id number] Pt. Type: A Room/Bed: [place] [address] Admit/Disch: 02/11/18 08:31:00 - 02/11/18 12:00:00 Institution: Case Times FT Entry 1 Patient Times In Room 02/11/18 11:04:00 Out Room 02/11/18 11:24:00 Procedure Times Start 02/11/18 11:11:00 Stop 02/11/18 11:22:00 Anesthesia Times Last Modified By: Elayne Agosto CST 02/11/18 11:24:30 General Comments: 02/11/18 Chart opened to review and send charges Estela Agosto CST Case Attendance FT Entry 1 Entry 2 Entry 3 Case Attendee Hardeep Fraga DO, RN, Arnold Guerra RN Role Performed Surgeon - Primary Retail Cashier - Primary Retail Cashier - Primary Time In 02/11/18 11:04:00 02/11/18 11:04:00 02/11/18 11:04:00 Time Out 02/11/18 11:24:00 02/11/18 11:24:00 02/11/18 11:24:00 Procedure CATARACT EXTRACTION W/ CATARACT EXTRACTION W/ CATARACT EXTRACTION W/ INTRAOCULAR LENS(Left) INTRAOCULAR LENS(Left) INTRAOCULAR LENS(Left) Comments Last Modified By: Siddharth DAMON, Rosanna Messina RN, Rosanna Vanegas RN 02/11/18 11:24:31 02/11/18 11:24:31 02/11/18 11:24:31 Entry 4 Entry 5 Case Attendee Marisela Huber CST, CST/Nusrat ZAMORA Role Performed Scrub - Primary Scrub - Other Time In 02/11/18 11:04:00 02/11/18 11:04:00 Time Out 02/11/18 11:24:00 02/11/18 11:24:00 Procedure CATARACT EXTRACTION W/ CATARACT EXTRACTION W/ INTRAOCULAR LENS(Left) INTRAOCULAR LENS(Left) Comments Last Modified By: Rosanna Messina RN, RN, Karen M 02/11/18 11:24:31 02/11/18 11:24:31 Perioperative Protocols FT Pre-Care Text: Implements protective measures prior to operative or invasive procedure, confirms identity before the operative or invasive procedure, verifies operative procedure, surgical site, and laterality Entry 1 Procedure(s) CATARACT EXTRACTION W/ Patient Identity Birthday, ID Band INTRAOCULAR LENS(Left) Verified (select at Check, Patient least 2): Participation Consents / H and P HandP, Surgery/Procedure Operative Site Present Verified Consent Marking Verified Surgical Site Yes Laterality Verified Yes Verified Procedure Verified Yes Correct Patient Yes Position Verified Availability Equipment, Implant, Prep Dry n/a Verified (If Medication Applicable) PreOp Antibiotic See Comments Time Out Hardeep Fraga DO, Given Participants Rosanna Messina RN, Tiffanie DAMON, Krys Mar CST/Nusrat ZAMORA Ott CST, Macie C Time Out Complete 02/11/18 11:08:00 Outcomes Met? Yes Last Modified By: Rosanna Messina RN 02/11/18 11:10:57 Post-Care Text: The patient is free from signs and symptoms of injury caused by extraneous objects General Comments: INTRA OP ABX GIVEN, SEE EMAR. HYUN RN Allergy Information FT Pre-Care Text: Verifies allergies Entry 1 Allergies Reviewed? Yes Allergies Reviewed Self/Patient With Outcomes Met? Yes Last Modified By: Rosanna Messina RN 02/11/18 09:32:00 Post-Care Text: The patient received appropriate medication(s) safely administered during the perioperative period Surgical Procedures FT Entry 1 Procedure Description Procedure CATARACT EXTRACTION W/ Modifiers Left INTRAOCULAR LENS IMPLANTATION Surgeon Description CATARACT EXTRACTION LEFT EYE WITH IOL Primary Procedure Yes Primary Surgeon Hardeep Fraga DO 02/11/18 11:11:00 Stop 02/11/18 11:22:00 Anesthesia Type Local Surgical Service Ophthalmology Wound Class 1 - Clean Last Modified By: Rosanna Messina RN 02/11/18 11:24:34 General Case Data FT Pre-Care Text: Classifies surgical wound, implements aseptic technique, initiates traffic control Entry 1 Case Information OR OR 3 FT Case Level Level 2 Wound Class 1 - Clean Specialty Ophthalmology Preop Diagnosis CATARACT LEFT EYE Postop Same As Preop Yes Postop Diagnosis CATARACT LEFT EYE Outcomes Met? Yes Last Modified By: Rosanna Messina RN 02/11/18 11:11:59 Post-Care Text: The patient is free from signs and symptoms of infection Skin Assessment (Pre Procedure) FT Pre-Care Text: Implements protective measures to prevent skin/ tissue injury due to thermal or mechanical sources Evaluates for signs and symptoms of physical injury to skin and tissue Entry 1 Skin Integrity Unable to Visualize Skin Abnormality No Outcomes Met? Yes Last Modified By: Rosanna Messina RN 02/11/18 11:12:07 Post-Care Text: The patient is free from signs and symptoms of injury caused by extraneous objects General Comments: VISIBLE SKIN INTACT. MARISOL PURVIS Patient Positioning FT Pre-Care Text: Identifies physical alterations that require additional precautions for procedure-specific positioning, verifies presence of prosthetics or corrective devices, positions the patient, evaluates the patient for signs and symptoms of injury as a result of positioning Entry 1 Procedure CATARACT EXTRACTION W/ Additional folded towel under head INTRAOCULAR LENS(Left) Information Body Position Supine Feet Uncrossed? Yes Left Arm Position Resting at Side Right Arm Position Resting at Side Left Leg Position Extended Right Leg Position Extended Positioning Device Safety Strap, Other/See Press Points Checked Yes Comments By Rosanna Messina RN, Outcomes Met? Yes Arnold Moreno RN Last Modified By: Rosanna Messina RN 02/11/18 11:12:32 Post-Care Text: The patient is free from signs and symptoms of injury related to positioning General Comments: B/L SIDERAILS UP AND BRAKES LOCKED ON EYE CART. MARISOL PURVIS Patient Care Devices FT Pre-Care Text: Implements protective measures to prevent skin/ tissue injury due to thermal or mechanical sources Entry 1 Entry 2 Entry 3 Equipment Type MICROSCOPE EYE[F] MONITOR CHARGE SURGERY PHACO UNIT[F] [F] Equipment Number Equipment Setting Outcomes Met? Yes Yes Yes Last Modified By: Rosanna Messina RN, RN, Karen M Farris RN, Karen M 02/11/18 09:09:07 02/11/18 09:09:07 02/11/18 09:09:07 Post-Care Text: The patient is free from signs and symptoms of injury caused by extraneous objects Transport To OR FT Pre-Care Text: Transports according to individual needs. Evaluates for signs and symptoms of skin and tissue injury as a result of transfer or transport Entry 1 Via Cart By Rosanna Messina RN Safety Precautions Safety Strap, Side Outcomes Met? Yes Rails Up Last Modified By: Rosanna Messina RN 02/11/18 11:12:39 Post-Care Text: The patient is free from signs and symptoms of injury related to transfer/transport Counts Verification FT Pre-Care Text: Performs required counts Entry 1 Procedure(s) CATARACT EXTRACTION W/ Type Initial INTRAOCULAR LENS(Left) Items Instruments Status Correct By Marisela Huber CST Outcomes Met? Yes Last Modified By: Rosanna Messina RN 02/11/18 11:12:51 Post-Care Text: The patient is free from signs and symptoms of injury caused by extraneous objects Skin Prep FT Pre-Care Text: Performs skin preparations Entry 1 Procedure CATARACT EXTRACTION W/ Prep Area operative site-LEFT EYE INTRAOCULAR LENS(Left) Prep Agents Saline Rinse, Betadine Scrub and Solution Hair Removal Methods Not Indicated By Arnold Moreno RN Outcomes Met? Yes Last Modified By: Rosanna Messina RN 02/11/18 11:11:31 Post-Care Text: The patient is free from signs and symptoms of infection Departure From OR FT Pre-Care Text: Transports according to individual needs. Evaluates for signs and symptoms of skin and tissue injury as a result of transfer or transport. Entry 1 Via Cart Safety Precautions Safety Strap, Side Rails Up PostOp Destination Pre Surgery/[facility] Transported By Rosanna Messina RN Patient Status Stable Skin. Condition Unable to Visualize Airway Maintenance Oxygen in Use? No Outcomes Met? Yes Last Modified By: Rosanna Messina RN 02/11/18 11:13:20 Post-Care Text: The patient is free from signs and symptoms of injury related to transfer/transport General Comments: REPORT CALLED TO [facility]. PT LEFT THE OR ALERT AND ORIENTED. TRANSPORTED BACK TO [facility] BY [facility]. HYUN RN Dressing/Packing FT Pre-Care Text: Administers care to wound sites Entry 1 Type Dressing Site and Details LEFT EYE: EYE SHIELD Outcomes Met? Yes Last Modified By: Rosanna Messina RN 02/11/18 11:14:03 Post-Care Text: The patient is free from signs and symptoms of infection Medication Administration FT Pre-Care Text: Verifies allergies, administers prescribed medications and solutions, administers prescribed antibiotic therapy and immunizing agents as ordered, evaluates response to medications Administers prescribed medications and solutions Entry 1 Expiration Date Yes Outcomes Met? Yes Verified Last Modified By: Rosanna Messina RN 02/11/18 09:32:09 Post-Care Text: The patient received appropriate medication(s) safely administered during the perioperative period For [facility] please see scanned medication reconcilliation form for medications used at the field during the procedure. Implant Log FT Pre-Care Text: Records devices implanted during the operative or invasive procedure Entry 1 Implant/Explant Implant Implant Identification Description ROSENDA [id number] 12.50MM Lot Number [id number] [[id number]][F] [employer] Catalog ?# [id number] [F] Size 17.5 Expiration Date 09/21/18 Usage Data Implant Site LEFT EYE Quantity 1 Outcomes Met? Yes Last Modified By: Rosanna Messina RN 02/11/18 11:19:54 Post-Care Text: The patient is free from signs and symptoms of injury caused by extraneous objects Case Comments Finalized By: Elayne Agosto CST Document Signatures Signed By: Rosanna Messina RN 02/11/18 11:24 Elayne Agosto CST 02/11/18 13:09 Normal [facility] Main OR PACU II [facility] Main OR PACU II Record PACU Phase II Document Type FT Summary Primary Physician: Hardeep Fraga DO Finalized Date/Time: 02/11/18 12:09:46 Pt. Name: PANKAJ PAYNE/Sex: 1945 Male Med Rec #: [id number] Physician: Hardeep Fraga DO Financial #: [id number] Pt. Type: A Room/Bed: [place] [address] Admit/Disch: 02/11/18 08:31:00 - Institution: Case Times PACU II FT Pre-Care Text: Identifies barriers to communication and implements measures to provide psychological support and determines knowledge level Develops individualized plan of care, and ensures continuity of care Maintains patient's dignity and privacy, and maintains patient confidentiality Identifies and reports philosophical, cultural, and spiritual beliefs and values Identifies individual values and wishes concerning care administers prescribed antibiotic therapy and immunizing agents as ordered, Evaluates postoperative tissue perfusion Implements thermoregulation measures, and monitors body temperature Evaluates postoperative respiratory status Evaluates postoperative cardiac status Evaluates postoperative neurological status Assesses pain control, collaborated in initiating patient-controlled analgesia and implements alternative methods of pain control Verifies allergies, administers prescribed medications and solutions, evaluates response to medications Entry 1 In PACU II 02/11/18 11:25:00 Discharge from PACU 02/11/18 12:00:00 II Outcomes Met? Yes Last Modified By: Lisa Rubi RN 02/11/18 12:09:45 Post-Care Text: The patient demonstrates knowledge of the expected response to the operative or invasive procedure The patient's care is consistent with the individualized perioperative plan of care The patient's right to privacy is maintained The patient's value system, lifestyle, ethnicity, and culture are considered, respected, and incorporated into the perioperative plan of care The patient participates in decisions affecting his or her perioperative plan of care. The patient is free from signs and symptoms of infection The patient has wound/tissue perfusion consistent with or improved from baseline levels established preoperatively The patient is at or returning to normothermia at the conclusion of the immediate postoperative period The patient's respiratory function is consistent with or improved from baseline levels established preoperatively The patient's cardiovascular status is consistent with or improved from baseline levels established preoperatively The patient's neurological status is consistent with or improved from baseline levels established preoperatively The patient demonstrates and/or reports adequate pain control throughout the perioperative period The patient received appropriate medication(s), safely administered during the perioperative period Finalized By: Lisa Rubi RN Document Signatures Signed By: Lisa Rubi RN 02/11/18 12:09 [facility] Patient Education - Texton 1 04-13-2017 Patient Education - Text Normal [facility] Progress Note-Physicianon Protein mass conc Patient: PANKAJ PAYNE Age: 72 years Sex: Male : 1945 Associated Diagnoses: None Author: Hardeep Fraga DO Postoperative Information Date/ Time: 02/11/18 11:23:00 Preoperative Diagnosis: Senile Cataract - OS. Postoperative Diagnosis: same . Procedure: Cataract Extraction with IOL placement - OS. Anesthesia Method: Local. Performed by: Hardeep Fraga DO. Specimens Removed: none . Estimated Blood Loss: 0 ml. Complications: None. Normal [facility] Comment on above: Result Comment: Elec tronically Signed By: Hardeep Fraga DO\.br\Date and Time Signed: 02/11/18 11:23 EST Vital Signs Date Time Vital Sign Value Performing Clinician Facility 06-20-2023 10:01-0400 Diastolic blood pressure 68 mm[Hg] Crescencio Marin DO Work Phone: [facility] 06-20-2023 10:01-0400 Heart rate 63 /min Crescencio Marin DO Work Phone: [facility] 06-20-2023 10:01-0400 Systolic blood pressure 126 mm[Hg] Crescencio Marin DO Work Phone: [facility] 06-20-2023 10:00-0400 Body height 165.1 cm Crescencio Marin DO Work Phone: [facility] 06-20-2023 10:00-0400 Body mass index (BMI) [Ratio] 30.29 kg/m2 Crescencio Marin DO Work Phone: [facility] 06-20-2023 10:00-0400 Body weight 82.56 kg Crescencio Marin DO Work Phone: [facility] 05-08-2023 10:30-0500 Body height 166.4 cm Frantz Conley MD Work Phone: [facility] 02-14-2024 10:30-0500 Body mass index (BMI) [Ratio] 29.66 kg/m2 Frantz Conley MD Work Phone: [facility] 05-08-2023 10:30-0500 Body weight 82.1 kg Frantz Conley MD Work Phone: [facility] 05-08-2023 10:30-0500 Diastolic blood pressure 66 mm[Hg] Frantz Conley MD Work Phone: [facility] 05-08-2023 10:30-0500 Heart rate 52 /min Frantz Conley MD Work Phone: [facility] 05-08-2023 10:30-0500 SaO2% (BldA) [Mass fraction] 99 % Frantz Conley MD Work Phone: [facility] 05-08-2023 10:30-0500 Systolic blood pressure 120 mm[Hg] Frantz Conley MD Work Phone: [facility] 09-28-2022 10:27-0400 Body temperature 97.8 [degF] II Frantz Conley Work Phone: [facility] 09-28-2022 10:27-0400 Body weight 81.19 kg II Frantz Conley Work Phone: [facility] 09-28-2022 10:27-0400 Diastolic blood pressure 61 mm[Hg] II Frantz Conley Work Phone: [facility] 09-28-2022 10:27-0400 Heart rate 39 /min II Frantz Conley Work Phone: [facility] 09-28-2022 10:27-0400 Respiratory rate 16 /min II Frantz Conley Work Phone: [facility] 09-28-2022 10:27-0400 SaO2% (BldA) [Mass fraction] 97 % II Frantz Conley Work Phone: [facility] 09-28-2022 10:27-0400 Systolic blood pressure 143 mm[Hg] II Frantz Conley Work Phone: [facility] 09-18-2022 10:00-0400 Body height 165.1 cm Mick Branch Other [facility] [employer] Other 09-18-2022 10:00-0400 Body mass index (BMI) [Ratio] 29.12 kg/m2 Mick Branch Other [facility] [employer] Other 09-18-2022 10:00-0400 Body weight 79.38 kg Mick Branch Other [facility] [employer] Other 09-18-2022 10:00-0400 Diastolic blood pressure 76 mm[Hg] Mick Branch Other [facility] [employer] Other 09-18-2022 10:00-0400 Systolic blood pressure 113 mm[Hg] Mick Branch Other [facility] [employer] Other 08-08-2022 13:49-0400 Body height 165.1 cm II Frantz Conley Work Phone: [facility] 09-19-2021 13:10-0400 Diastolic blood pressure 64 mm[Hg] II Frantz Conley Work Phone: [facility] 09-19-2021 13:10-0400 Heart rate 68 /min II Frantz Conley Work Phone: [facility] 09-19-2021 13:10-0400 Respiratory rate 16 /min II Frantz Conley Work Phone: [facility] 09-19-2021 13:10-0400 SaO2% (BldA) [Mass fraction] 96 % II Frantz Conley Work Phone: [facility] 09-19-2021 13:10-0400 Systolic blood pressure 119 mm[Hg] II Frantz Conley Work Phone: [facility] 09-19-2021 11:54-0400 Body height 165.1 cm II Frantz Conley Work Phone: [facility] 09-19-2021 11:54-0400 Body mass index (BMI) [Ratio] 29.9 kg/m2 II Frantz Conley Work Phone: [facility] 09-19-2021 11:54-0400 Body temperature 98.3 [degF] II Frantz Conley Work Phone: [facility] 09-19-2021 11:54-0400 Body weight 81.64 kg II Frantz Conley Work Phone: [facility] 09-13-2021 15:15-0400 Body height 165.1 cm Mick Diadam Other [employer] Other 09-13-2021 15:15-0400 Body mass index (BMI) [Ratio] 29.95 kg/m2 Mick Thaisadam Other [employer] Other 09-13-2021 15:15-0400 Body weight 81.65 kg Mick Ditty Other [employer] Other 08-17-2021 12:00-0400 Body temperature 98.01 [degF] Leonard Johnson MD [facility] 08-17-2021 11:15-0400 Heart rate 69 /min Leonard Johnson MD [facility] 08-17-2021 11:15-0400 Respiratory rate 19 /min Leonard Johnson MD [facility] 08-17-2021 11:15-0400 SaO2% (BldA) [Mass fraction] 98 % Leonard Johnson MD [facility] 08-17-2021 10:00-0400 Diastolic blood pressure 80 mm[Hg] Leonard Johnson MD [facility] 08-17-2021 10:00-0400 Systolic blood pressure 139 mm[Hg] [facility] [employer] [facility] 08-16-2021 21:48-0400 Body height 165.1 cm [facility] 08-16-2021 21:48-0400 Body mass index (BMI) [Ratio] 30.05 kg/m2 [facility] [employer] 08-16-2021 21:48-0400 Body weight 81.92 kg Leonard [facility] 07-11-2021 11:45-0400 Body height 165.1 cm Mick Branch Other [employer] Other 07-11-2021 11:45-0400 Body mass index (BMI) [Ratio] 30.45 kg/m2 Mick Branch Other [employer] Other 07-11-2021 11:45-0400 Body weight 83.01 kg Mick Branch Other [employer] Other 07-11-2021 11:45-0400 Diastolic blood pressure 77 mm[Hg] Mick Branch Other [employer] Other 07-11-2021 11:45-0400 Systolic blood pressure 126 mm[Hg] Mick Branch Other [employer] Other Encounters Encounter Date Encounter Type Care Provider Facility Start: 06-26-2023 End: 06-26-2023 ambulatory [facility] Ambulatory Start: 06-20-2023 End: 06-20-2023 ambulatory [facility] Start: 06-20-2023 End: 06-20-2023 Office outpatient visit 40 minutes [facility] DO Work Phone: [facility] Comment on above: ASHD (arteriosclerot ic heart disease); History of coronary artery stent placement; Ascending aorta dilation (CMS/HCC); Iron deficiency anemia, unspecified iron deficiency anemia type; PVC (premature ventricular contraction); Former cigarette smoker Start: 06-10-2023 End: 06-10-2023 ambulatory FRANTZ CONLEY Not Available Start: 06-05-2023 End: 06-05-2023 ambulatory Frantz Conley Facility:[facility] Start: 06-05-2023 End: 06-05-2023 ambulatory II Frantz Conley Work Phone: [facility] Work Phone: Start: 06-05-2023 End: 06-05-2023 Patient encounter procedure II Frantz Conley Work Phone: [facility]-Ultrasound [facility] [place] Work Phone: Start: 05-08-2023 Bamboo flowsheet Frantz chiu MD Work Phone: [facility] Start: 05-08-2023 Bamboo flowsheet Frantz chiu MD Work Phone: [facility] Start: 05-08-2023 End: 05-08-2023 ambulatory FRANTZ CONLEY Not Available Start: 05-08-2023 End: 05-08-2023 Transitional care manage srvc 7 day discharge Frantz Conley MD Work Phone: [facility] Comment on above: Pancytopenia, acquir ed (CMS/HCC) (Primary Dx); Iron deficiency anemia, unspecified iron deficiency anemia type; Other cirrhosis of liver (CMS/HCC); Fatty liver disease, nonalcoholic; Hyperchylomicronemia (CMS/HCC) Start: 05-01-2023 End: 05-01-2023 ambulatory Jose Manning Facility:[facility] Start: 05-01-2023 End: 05-01-2023 ambulatory MD Jose Manning Work Phone: [facility] Work Phone: Start: 05-01-2023 End: 05-01-2023 Departed Referred MD Jose Manning Work Phone: [facility]-LAB [facility] Start: 04-22-2023 End: 04-22-2023 ambulatory FRANTZMAGI CONLEY Not Available Start: 10-04-2022 End: 10-04-2022 ambulatory Mick Branch Facility:[facility] Start: 10-04-2022 End: 10-04-2022 ambulatory II Frantz Conley Work Phone: [facility] Work Phone: Start: 10-04-2022 End: 10-04-2022 Patient encounter procedure II Frantz Conley Work Phone: [facility] [place] Work Phone: Start: 09-28-2022 ambulatory Frantzmagi Conley Facility:[facility] Start: 09-28-2022 End: 09-28-2022 ambulatory II Frantz Conley Work Phone: [facility] Work Phone: Start: 09-28-2022 End: 09-28-2022 Registered Recurring II Frantz Conley Work Phone: [facility]Cancer Center Work Phone: Start: 09-18-2022 End: 09-18-2022 ambulatory Mick Branch Other [facility] [employer] Other Start: 09-18-2022 Patient encounter procedure Mick Branch [facility] Start: 09-17-2022 End: 09-17-2022 ambulatory ARABELLA [facility] Start: 11-08-2021 End: 11-09-[address] KARL MENON Facility:[facility] Start: 11-06-2021 End: 11-06-2021 Patient encounter procedure II Frantz Conley Work Phone: [facility]-Respiratory Therapy Start: 10-10-2021 End: 10-10-2021 Patient encounter procedure II Frantz Conley Work Phone: [facility]-CT Scan [facility] [place] Start: 09-20-2021 End: 09-20-2021 Patient encounter procedure II Frantzmagi Conley Work Phone: [facility]Ultrasound [facility] [place] Start: 09-19-2021 End: 09-19-2021 Admission to same day surgery center II Frantz Conley Work Phone: [facility]-Digestive Health Start: 09-15-2021 End: 09-15-2021 Patient encounter procedure II Frantz Conley Work Phone: [facility]Cxp-[id number] Testing Start: 09-13-2021 End: 09-13-2021 ambulatory Mick Branch Other [employer] Other Start: 09-13-2021 Patient encounter procedure Mick Branch [facility] Start: 08-16-2021 End: 08-17-2021 [facility] Start: 08-16-2021 End: 08-17-2021 Evaluation and management of inpatient Leonard Johnson MD [facility] 1 Comment on above: Subarachnoid hemorrh age following injury, no loss of consciousness, initial encounter (HCC) (Primary Dx); Facial laceration, initial encounter Start: 08-16-2021 End: 08-16-2021 ambulatory KEILY RENTERIA Facility: Start: 07-12-2021 End: 07-13-2021 ambulatory MICK BRANCH Facility:[facility] Start: 07-11-2021 End: 07-11-2021 ambulatory Mick Branch Other [employer] Other Start: 07-11-2021 [facility] visit new patient Mick Branch [facility] Start: 03-01-2021 End: 03-01-[address] FRANTZ CONLEY Facility:[facility] Start: 02-03-2021 End: 02-03-[address] FRANTZ CONLEY Facility:[facility] Start: 10-30-2018 End: 10-31-2018 Patient encounter procedure JOSIAH SCHAFER Facility:[facility] Start: 02-28-2018 End: 03-01-2018 Patient encounter procedure INDIA ANDREA Facility:[facility] Start: 02-25-2018 End: 02-25-2018 Patient encounter procedure Hardeep Rosie [place] Start: 02-11-2018 End: 02-11-2018 Patient encounter procedure Hardeep Zahlleti [place] [place] Date Procedure Procedure Detail Performing Clinician Start: 06-26-2023 HOLTER OR EVENT CHECKER/STOCKER CRESCENCIO MARIN Start: 06-20-2023 History of placement of stent for coronary artery disease History of coronary artery stent placement Crescencio Marin DO Work Phone: Start: 06-20-2023 ECG 12-LEAD CRESCENCIO MARIN Start: 06-20-2023 Ecg routine ecg w/least 12 lds w/i&r Crescencio Marin DO Work Phone: Start: 06-05-2023 US scan of spleen II Frantz Conley Work Phone: Start: 04-29-2023 Lipid 1996 panel - Serum or Plasma Willi david Marin DO Work Phone: Start: 10-04-2022 Ultrasonography of liver II Frantz Conley Work Phone: Start: 08-13-2022 History of placement of stent for coronary artery disease S/P coronary artery stent placement Frantz Conley MD Work Phone: Start: 10-10-2021 Computed tomography of abdomen and pelvis with contrast II Frantz Conley Work Phone: Start: 09-20-2021 Ultrasonography of liver II Frantz Conley Work Phone: Start: 09-19-2021 Esophagogastroduodenoscopy II Frantz roman Work Phone: Start: 08-17-2021 BASIC METABOLIC PANEL W/ REFLEX TO MG FOR LOW K Bella Flannery DO Work Phone: Start: 08-17-2021 Blood count complete auto&auto difrntl wbc Bella Flannery DO Work Phone: Start: 08-16-2021 Iadna s aureus methicillin resist amp probe tq Pepito Suarez MD Work Phone: Start: 08-16-2021 Ct head/brain w/o contrast material Paramjit ilenerandall Sukumar Jenni DO Work Phone: Plan of Treatment Date Care Activity Detail Author Start: 04-29-2028 Lipid panel Lipid Panel [facility] Start: 12-25-2023 End: 12-25-2023 Patient encounter procedure 12/25/2023 10:20 AM EDT Office Visit [facility] [address] [facility] [address] [place] [id number] Crescencio Marin DO [address] [place], [place] [id number] [facility] Start: 11-06-2023 End: 11-06-2023 Patient encounter procedure 11/06/2023 11:00 AM EDT Office Visit [facility] [address] [facility] [address] [place] [address] Frantz Conley MD [address] [facility] [address] [place] [address] [facility] Start: 10-21-2023 End: 10-21-2023 Patient encounter procedure 10/21/2023 11:00 AM EDT Office Visit [facility] [address] [facility] [address] [place] [address] Frantz Conley MD [address] 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 Cardiac Services Routine PVC (premature ventricular contraction) Expected: 06/20/2023 (Approximate), Expires: 06/19/2024 [facility] Service Area Work Phone: Comment on above: Expected: 06/20/2023 (Approximate), Expires: 06/19/2024 Start: 06-10-2023 End: 06-10-2023 Patient encounter procedure 06/10/2023 10:30 AM EDT Office Visit [facility] [address] [place] [address] Frantz Conley MD [address] [place] [address] [facility] Start: 05-08-2023 End: 05-08-2024 US Abdomen limited [facility] Work Phone: Comment on above: Expected: 05/08/2023 , Expires: 05/08/2024 Start: 05-08-2023 End: 05-08-2023 Patient encounter procedure 05/08/2023 10:30 AM EST Office Visit [facility] [address] [place] [address] Frantz Conley MD [address] [place] [address] Arrived [facility] Comment on above: Arrived Start: 11-23-2022 COVID-19 Vaccine ( season) COVID-19 Vaccine ( season) [facility] Start: 11-08-2022 Echocardiography Echocardiogram [facility] Start: 05-01-2022 Lipid panel Lipids [facility] Start: 09-19-2021 [facility] Work Phone: Start: 08-24-2021 End: 08-17-2022 CT HEAD WO CONTRAST CT HEAD WO CONTRAST Imaging Routine Subarachnoid hemorrhage following injury, no loss of consciousness, initial encounter (HCC) Expected: 08/24/2021, Expires: 08/17/2022 [facility] [employer] [facility] Work Phone: Comment on above: Expected: 08/24/2021 , Expires: 08/17/2022 Start: 09-30-2019 Pneumococcal 65+ yea rs Vaccine (2 - PCV) Pneumococcal 65+ years Vaccine (2 - PCV) [facility] Start: 09-30-2019 Pneumococcal Vaccine : 65+ Years (2 - PCV) Pneumococcal Vaccine: 65+ Years (2 - PCV) [facility] Start: 2006 Hepatitis B Vaccines (1 of 3 - Risk 3-dose series) Hepatitis B Vaccines (1 of 3 - Risk 3-dose series) [facility] Start: 07-31-1991 Screening for malign ant neoplasm of colon [facility] Start: 1968 DTaP/Tdap/Td Vaccine s (1 - Tdap) DTaP/Tdap/Td Vaccines (1 - Tdap) [facility] Start: 1965 DTaP/Tdap/Td vaccine (1 - Tdap) DTaP/Tdap/Td vaccine (1 - Tdap) [facility] Start: 1965 Hepatitis A Vaccines (1 of 2 - Risk 2-dose series) Hepatitis A Vaccines (1 of 2 - Risk 2-dose series) [facility] Start: 1964 Diabetes mellitus screening Diabetes Screening [facility] Start: 1964 Hepatitis C screening B ON [facility] Start: 1958 Depression Screen Depression Screen [facility] Start: 1946 Creatinine measurement Creatinine Le tara [facility] Start: 1946 Medicare Annual Well ness Visit Medicare Annual Wellness Visit (AWV) [facility] Start: 1946 Potassium measurement Potassium Leve l [facility] Start: 1946 Thyroid stimulating hormone measurement TSH Level [facility] Oxygen therapy [[facility] Data Set] Initiate Oxygen Therapy Protocol Respiratory Care Routine As Needed until discontinued starting 08/16/2021 [facility] [employer] Phone: Comment on above: As Needed until disc ontinued starting 08/16/2021 End: 08-16-2021 Speech and language therapy regime Speech language pathology evaluation PLATFORM ARCHITECT Routine One Time for 1 Occurrences starting 08/16/2021 until 08/16/2021 [facility]: Comment on above: One Time for 1 Lolly thomas starting 08/16/2021 until 08/16/2021 Immunizations Immunization Date Immunization Notes Care Provider Eloisa ding 01-04-2023 Influenza, Seasonal, Quadrivalent, Adjuvanted Frantz Conley MD Work Phone: [facility] 03-21-2022 Influenza, High-dose Seasonal, Quadrivalent, Preservative Free Frantz Conley MD Work Phone: [facility] Work Phone: 03-01-2021 COVID-19 Ad26.COV2.S (Caleb) II Frantz Conley Work Phone: [facility] 01-06-2021 influenza, high dose seasonal, preservative-free Frantz Conley MD Work Phone: [facility] 01-06-2021 Influenza, High-dose Seasonal, Quadrivalent, Preservative Free Frantz Conley MD Work Phone: [facility] 05-26-2020 COVID-19 mRNA-1273 (Moderna) II Frantz Conley Work Phone: [facility] 04-28-2020 COVID-19 mRNA-1273 (Moderna) II Frantz Conley Work Phone: [facility] 01-06-2020 Influenza, High-dose Seasonal, Quadrivalent, Preservative Free Frantz Conley MD Work Phone: [facility] 08-18-2019 zoster vaccine recombinant Frnatz Conley MD Work Phone: [facility] 04-10-2019 zoster vaccine recombinant Frantz Conley MD Work Phone: [facility] 02-06-2019 influenza, high dose seasonal, preservative-free Frantz Conley MD Work Phone: [facility] 09-29-2018 pneumococcal polysaccharide vaccine, 23 valent Frantz Conley MD Work Phone: [facility] 01-14-2018 Influenza, High-dose Seasonal, Quadrivalent, Preservative Free Frantz Conley MD Work Phone: [facility] 12-03-2016 Influenza, High-dose Seasonal, Quadrivalent, Preservative Free Frantz Conley MD Work Phone: [facility] 03-28-2015 influenza, seasonal, injectable, preservative free Frantz Conley MD Work Phone: [facility] 01-10-2015 seasonal influenza, intradermal, preservative free Frantz Conley MD Work Phone: [facility] Payers Date Payer Category Payer Self-pay [id number] [id number] [employer] ( and others) [id number] 2015 [employer] ( and others) [id number] 2011 Medicare [id number] 71.315 1959 [employer] ( and others) [id number] 1959 Medicare [id number] 1946 Unknown [id number] [id number] 1946 Unknown [id number] [id number] 1946 Unknown [id number] 2.16.840.1.984082.3.579.2.647 1946 Unknown [id number] 2.16.840.1.241941.3.579.2.647 1946 Unknown [id number] 2.16.840.1.746809.3.579.2.175 1946 Unknown [id number] 2.16.840.1.336935.3.579.2.593 1946 Unknown [id number] 2.16.840.1.157252.3.579.2.593 1946 Unknown [id number] 2.16.840.1.530937.3.579.2.593 1946 Unknown [id number] 2.16.840.1.969719.3.579.2.593 1946 Unknown [id number] 2.16.840.1.259710.3.579.2.593 1946 Unknown [id number] 2.16.840.1.583501.3.579.2.1259 1946 Unknown [id number] 2.16.840.1.595760.3.579.2.1259 1946 Unknown [id number] 2.16.840.1.927769.3.579.2.1259 1946 Unknown [id number] 2.16.840.1.073329.3.579.2.1244 1946 Unknown [id number] 2.16.840.1.552008.3.579.2.1244 Unknown [id number] 2.16.840.1.907923.3.579.2.531 Unknown [id number] 2.16.840.1.181707.3.579.2.531 Unknown [id number] 2.16840.1.808388.3.579.2.531 Unknown [id number] 2.840.1.078838.3.579.2.531 Social History Date Type Detail Facility Start: 08-16-2021 Tobacco smoking status VAIS Tobacco smoking consumption unknown [facility] Start: 08-16-2021 End: 06-20-2023 Alcohol intake Lifetime non-drinker (finding) [employer] Phone: Start: 08-16-2021 History SDOH Alcohol Frequency 1 [facility] Phone: Start: 1945 Sex Assigned At Not on file [employer] Phone: Start: 08-06-2021 End: 06-20-2023 Exposure to SARS-CoV-2 (event) Not sure [facility] [employer] Work Phone: Start: 04-15-2023 End: 06-20-2023 Sex Assigned At [facility] Start: 05-10-2021 End: 09-28-2022 Tobacco smoking status VAIS Never smoked tobacco (finding) [facility] Start: 1945 Sex Assigned At Male [facility] Start: 08-16-2022 End: 06-20-2023 Tobacco use and exposure Smokeless tobacco non-user [facility] Start: 04-22-2023 End: 05-08-2023 Alcohol intake Ex-drinker (finding) [facility] Start: 04-15-2023 End: 06-20-2023 History of Social function [facility] Within the last year , have you been afraid of your partner or ex-partner? No [facility] How often do you get together with friends or relatives? Patient refused [facility] Do you belong to any clubs or organizations such as uatsdin groups, unions, fraternal or athletic groups, or school groups? Yes [facility] Are you now , , , , never or living with a partner? [facility] How often to you hav e a drink containing alcohol? Never [facility] (I/We) worried wheth er (my/our) food would run out before (I/we) got money to buy more. Never true [facility] Start: 08-20-2022 Alcohol Comment caffeine intake: 1-2 cups per day. [facility] Start: 06-20-2023 Tobacco smoking status NHIS Ex-smoker [facility] Work Phone: End: 03-25-2003 History of tobacco use Current smoker [facility] Work Phone: End: 03-25-2003 History of tobacco use Cigarette Smoker [facility] Work Phone: Goals Date Patient Goal Desired Activity /State Clinical Notes 05-23-2021 to 06-20-2023 Crescencio Marin, DO - 06/20/2023 10:00 AM EDTPatient InstructionsFrantz Conley MD - 05/08/2023 10:30 AM EST Note Date & Type Note Facility 06-20-2023 History of Present illness Narrative Cardiology Consultation- New Consult Reason for referral: 77-year-old gentleman seen in cardiology consultation at the request of himself and Dr. Frantz Johnston for further ongoing cardiovascular management and evaluation. Patient currently has no angina, no heart failure or cardiovascular hospitalizations He has recently been diagnosed with iron deficiency/microcytic anemia and underwent transfusion times several units and iron transfusion as well for hemoglobin of 5.2, white count of 3.1 and a platelet count of 105,000 Patient has known history of ASHD with PCI of the ostial/proximal circumflex at [facility] he says around 3 years ago and IFR assessment of the PLV branch which was negative. Details of his last cardiology visit with nurse practitioner are reviewed Most recent lipid panel is reviewed, LDL is 28, total cholesterol is 74 Today's ECG reveals sinus rhythm with rightward axis, bigeminal PVCs, and possible anteroseptal infarction pattern age indeterminant. Recommendations: Continue current therapies, follow-up in 6 months, obtain 24-hour Holter monitor. HPI: Pankaj Payne is a 77 y.o. male Past Medical History: He has no past medical history on file. Surgical History: He has a past surgical history that includes Cardiac catheterization; Coronary stent placement; Cholecystectomy; and Colonoscopy (2013). Family History: Family History Problem Relation Name Age of Onset Liver disease Mother Lung disease Father Epilepsy Sister Skin cancer Brother Social History: Social History Tobacco Use Smoking status: Former Types: Cigarettes Quit date: 2003 Years since quittin.2 Smokeless tobacco: Never Substance Use Topics Alcohol use: Never Allergies: Patient has no known allergies. Current Medications: Current Outpatient Medications: atorvastatin (Lipitor) 20 mg tablet, Take 1 tablet (20 mg) by mouth once daily., Disp: , Rfl: clopidogrel (Plavix) 75 mg tablet, Take 1 tablet (75 mg) by mouth once daily., Disp: , Rfl: levothyroxine (Synthroid, Levoxyl) 88 mcg tablet, Take 1 tablet (88 mcg) by mouth once daily in the morning. Take before meals. Take on an empty stomach., Disp: , Rfl: omeprazole (PriLOSEC) [address] capsule, Take 1 capsule (40 mg) by mouth 2 times a day., Disp: , Rfl: tiZANidine (Zanaflex) 4 mg tablet, 1 tablet (4 mg) as needed at bedtime., Disp: , Rfl: fish oil concentrate (Hague-3) 120-180 mg capsule, Take 1 capsule (1,000 mg) by mouth once daily., Disp: , Rfl: multivitamin with minerals tablet, Take 1 tablet by mouth once daily., Disp: , Rfl: Vitals: Vitals: 06/20/23 1000 06/20/23 1001 BP: 128/72 126/68 BP Location: Left arm Right arm Patient Position: Sitting Sitting Pulse: 63 63 Weight: 82.6 kg (182 lb) Height: 1.651 m (5' 5 ) EKG done in office today. Review of Systems Neurological: Positive for dizziness. All other systems reviewed and are negative. Objective Physical Exam Constitutional: Appearance: Normal appearance. HENT: Nose: Nose normal. Neck: Vascular: No carotid bruit. Cardiovascular: Rate and Rhythm: Normal rate. Pulses: Normal pulses. Heart sounds: Normal heart sounds. Pulmonary: Effort: Pulmonary effort is normal. Abdominal: General: Bowel sounds are normal. Palpations: Abdomen is soft. Musculoskeletal: General: Normal range of motion. Cervical back: Normal range of motion. Right lower leg: No edema. Left lower leg: No edema. Skin: General: Skin is warm and dry. Neurological: General: No focal deficit present. Mental Status: He is alert. Psychiatric: Mood and Affect: Mood normal. Behavior: Behavior normal. Thought Content: Thought content normal. Judgment: Judgment normal. Assessment and Plan: 1. ASHD (arteriosclerotic heart disease) 2. History of coronary artery stent placement 3. Ascending aorta dilation (CMS/HCC) 4. Iron deficiency anemia, unspecified iron deficiency anemia type 5. PVC (premature ventricular contraction) 6. Former cigarette smoker Scribe Attestation By signing my name below, Bernadette Olivera LPN, Scribe attest that this documentation has been prepared under the direction and in the presence of Crescencio Marin DO. Provider Attestation - Scribe documentation All medical record entries made by the Scribe were at my direction and personally dictated by me. I have reviewed the chart and agree that the record accurately reflects my personal performance of the history, physical exam, discussion and plan. documented in this encounter [facility] Work Phone: 06-20-2023 Instructions Bernadette Santillan LPN - 06/20/2023 10:00 AM EDT Please bring all medicines, vitamins, and herbal supplements with you when you come to the office. Prescriptions will not be filled unless you are compliant with your follow up appointments or have a follow up appointment scheduled as per instruction of your physician. Refills should be requested at the time of your visit. BMI was above normal measurement. Current weight: 82.6 kg (182 lb) Weight change since last visit (-) denotes wt loss 182 lbs Weight loss needed to achieve BMI 25: 32.1 Lbs Weight loss needed to achieve BMI 30: 2.1 Lbs Provided instructions on dietary changes Provided instructions on exercise. documented in this encounter [facility] Work Phone: 05-08-2023 History of Present illness Narrative Subjective Patient ID: Pankaj Payne is a 77 y.o. male who presents for Follow-up ([facility] stay: admitted 04/30/23 dx: anemia discharged home 05/01/23 follow up with hematology was 05/07/23) and Anemia. Flowsheet Row Telephone from 05/03/2023 in [facility] with Frantz Conley MD Discharge Information ED or Hospital Discharge? Hospital Patient has been contacted within two business days of discharge Yes Discharge Date 05/01/23 Discharge Hospital [facility] Discharged To: Home Setting Engagement Call Start Time 1023 Medications Discharge medications reviewed and reconciled from hospital? Yes Is the patient having any side effects they believe may be caused by any medication additions or changes? No Is the patient taking all medications as directed (includes completed medication regime)? Yes Appointments Does the patient have a primary care provider? Yes Self Management Patient Teaching Does the patient have access to their discharge instructions? Yes Nursing Interventions Reviewed instructions with patient What is the patient's perception of their health status since discharge? Improving Wrap Up Wrap Up Additional Comments appt with hematology 05/07/23 no med changes Call End Time 1025 No meds were changed at hematology visit yesterday they are repeating labs and will see him back for a follow up Anemia There has been no abdominal pain or palpitations. Current Outpatient Medications on File Prior to Visit Medication Sig Dispense Refill aspirin (ASPIR) 81 MG EC tablet Take 81 mg by mouth in the morning. atorvastatin (Lipitor) 20 MG tablet Take 20 mg by mouth at bedtime. clopidogrel (Plavix) 75 MG tablet Take 75 mg by mouth in the morning. levothyroxine (Synthroid, Levoxyl) 100 MCG tablet TAKE 1 TABLET DAILY 90 tablet 3 Multiple Vitamins-Minerals (ONE DAILY ADULTS 50+ PO) Take 1 tablet by mouth 1 (one) time each day. Hague-3 Fatty Acids (Fish Oil) 1000 MG capsule delayed-release Take 1 capsule by mouth 1 (one) time each day. omeprazole (PriLOSEC) [address] capsule Take 1 capsule (40 mg) by mouth in the morning and 1 capsule (40 mg) in the evening. Take before meals. 180 capsule 3 tiZANidine (Zanaflex) 4 MG tablet TAKE 1 TABLET DAILY AT NIGHT TIME NEEDED 90 tablet 3 No current facility-administered medications on file prior to visit. No Known Allergies Social History Tobacco Use Smoking status: Never Smokeless tobacco: Never Substance Use Topics Alcohol use: Not Currently Comment: caffeine intake: 1-2 cups per day. Family History Problem Relation Name Age of Onset Kidney disease Mother Past Medical History: Diagnosis Date Anemia CAD (coronary artery disease) (CMS/HCC) Cataract Cataracts, bilateral Cholelithiasis 02/03/2021 Chronic kidney disease Hyperlipidemia (CMS/HCC) Hypertension (CMS/HCC) Liver disease Cirrhotic appearance on laparoscopy PAC (premature atrial contraction) PVC (premature ventricular contraction) Subarachnoid hemorrhage (CMS/HCC) 08/16/2021 Past Surgical History: Procedure Laterality Date CARDIAC CATHETERIZATION 10/30/2018 with stent placement CHOLECYSTECTOMY 05/10/2021 PCL CIRCUMCISION 1953 COLONOSCOPY Visit Vitals BP 120/66 Pulse 52 Ht 5' 5.5 Wt 181 lb SpO2 99% BMI 29.66 kg/m Smoking Status Never BSA 1.95 m Review of Systems Constitutional: Positive for fatigue. Negative for appetite change and unexpected weight change. Respiratory: Negative for cough, chest tightness and shortness of breath. Cardiovascular: Negative for chest pain, palpitations and leg swelling. Gastrointestinal: Negative for abdominal pain, nausea and vomiting. Genitourinary: Negative for difficulty urinating, hematuria and urgency. Objective Physical Exam Constitutional: General: He is not in acute distress. Appearance: He is normal weight. He is not ill-appearing. HENT: Head: Normocephalic. Cardiovascular: Rate and Rhythm: Normal rate and regular rhythm. Heart sounds: Normal heart sounds. No murmur heard. Pulmonary: Effort: Pulmonary effort is normal. Breath sounds: Normal breath sounds. Musculoskeletal: General: No swelling. Right lower leg: No edema. Left lower leg: No edema. Neurological: Mental Status: He is alert. Psychiatric: Mood and Affect: Mood normal. Thought Content: Thought content normal. Judgment: Judgment normal. Assessment/Plan Diagnoses and all orders for this visit: Pancytopenia, acquired (CMS/HCC) - US LIVER; Future - US SPLEEN; Future - The patient was seen today in follow up of recent hospital stay. All available hospital records were reviewed and discussed with the patient. Hospital discharge meds were reviewed. Any changes are noted above. - Case was discussed with Dr Sevilla, Hematology at [facility], he is following the patient and did see him in the hospital. Iron deficiency anemia, unspecified iron deficiency anemia type - Ambulatory referral to Gastroenterology; Future Other cirrhosis of liver (CMS/HCC) - US LIVER; Future Fatty liver disease, nonalcoholic - US LIVER; Future Hyperchylomicronemia (CMS/HCC) Follow up in about 4 weeks (around 06/05/2023) for Test/Lab Review. 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 Conley (PCP) will order lab work Repeat fibroscan in 2024 Rto 1 yr Aug, NAFLD (nonalcoholic fatty liver disease) (ICD-10 - K76.0) Aug, PLASCENCIA (nonalcoholic steatohepatit is) (ICD-10 - K75.81) [employer] Other 06-26-2023 NoteHypertension is well controlled Continue lifestyle modifications- low sodium diet, heart healthy diet and regular activity.[facility]06-26-2023 NoteHTN is well controlled F/U with PCP for monitoring of renal functionUnCleveland Clinic [facility] 09-17-2022 NoteCoronary artery disease is stable, no concerning symptoms Continue GDMT- ASA, plavix, lipitor continue risk factor modifications- heart healthy diet, regular exercise as tolerated and continue all medications.[facility] 09-17-2022 NoteMild dilatation on last echo- will repeat echo at 1 year- Oct- NovUnC[facility]06-26-[address] [facility]06-26-2023 NoteStable and pt without any symptomsUnCleveland Clinic Mercy Hospital06-26-2023 NoteUTP CARDIOLOGY PROGRESS NOTE HPI: Pankaj Payne is a 77 y.o. male here for 1 year routine f/U for CAD s/p Stent, HTN, HPL, Ascending aortic widening. HPI Overall pt is doing quite well, no activity limiting symptoms. Denied chest pain, shortness of breath, orthopnea, palpitations. He f/U with PCP Dr Conley and recently with hem-onc r/t abnormal T cells. Review of Systems Constitutional: Negative. Respiratory: Negative. Cardiovascular: Negative. Neurological: Negative. All other systems reviewed and are negative. Visit Vitals BP 113/70 (BP Location: Right arm, Patient Position: Sitting, BP Cuff Size: Adult) Pulse 58 Wt 80.7 kg (178 lb) SpO2 97% BMI 29.62 kg/m??? Smoking Status Never BSA 1.92 m??? Not on File Medications: Current Outpatient Medications on File Prior to Visit Medication Sig Dispense Refill aspirin 81 mg chewable tablet Chew 81 mg. atorvastatin (Lipitor) 20 mg tablet TAKE 1 TABLET DAILY 90 tablet 3 clopidogrel (Plavix) 75 mg tablet TAKE 1 TABLET DAILY 90 tablet 3 fish oil concentrate (Hague-3) 120-180 mg capsule Take 1,000 mg by mouth. levothyroxine (Synthroid, Levoxyl) 100 mcg tablet levothyroxine 100 mcg tablet meclizine (Antivert) 25 mg tablet Take 25 mg by mouth if needed in the morning, at noon, and at bedtime for dizziness. tiZANidine (Zanaflex) 4 mg tablet tizanidine 4 mg tablet No current facility-administered medications on file prior to visit. Physical Exam: Constitutional: Appearance: Normal appearance. Without apparent distress HENT: Head: Normocephalic and atraumatic. Nose: Nose normal. Mouth/Throat: Mouth: Mucous membranes are moist. Eyes: Extraocular Movements: Extraocular movements intact. Conjunctiva/sclera: Conjunctivae normal. Neck: Vascular: No JVD. Cardiovascular: Rate and Rhythm: Normal rate and regular rhythm. Pulses: Dorsalis pedis pulses are 3 on the right side and 3on the left side. Posterior tibial pulses are 3 on the right side and 3 on the left side. Heart sounds: Normal heart sounds, S1 normal and S2 normal. Pulmonary: Effort: Pulmonary effort is normal. Breath sounds: Normal breath sounds. Abdominal: General: Bowel sounds are normal. Palpations: Abdomen is soft. Musculoskeletal: General: Normal range of motion. Cervical back: Normal range of motion. Right lower leg: No edema. Left lower leg: No edema. Skin: General: Skin is warm and dry. Capillary Refill: Capillary refill takes less than 2 seconds. Neurological: General: No focal deficit present. Mental Status: alert and oriented to person, place, and time. Psychiatric: Mood and Affect: Mood normal. Behavior: Behavior normal. Thought Content: Thought content normal. Judgment: Judgment normal. Labs: Will ask PCP for any recent labs F/U with PCP for annual labs 07/12/22 CBC stable Renal function normal CR 0.93 Liver function stable/normal Chol 96, HDL 32, Trig 115, LDL 44- well controlled Last lab values have been reviewed CV Testin11/08/21 Echo 2019 FINAL IMPRESSION: 1. Stable coronary artery disease. 2. The previously placed stent in the ostial left circumflex is widely patent. 3. The right PDA has intermediate coronary stenosis. This was further evaluated with physiological assessment using the IFR measurement. The IFR value was 0.98 which is within the normal range, and therefore, no stent procedures required for the right PDA intermediate stenosis. Medical therapy is recommended. 4. Incidental note of significant premature atrial contractions and runs of atrial tachycardia. Holter monitor will be arranged. PLAN: 1. Medical therapy for CAD as tolerated. 2. Continue aspirin and Plavix and atorvastatin. 3. Holter monitor will be arranged given the significant atrial arrhythmias that were noted. 4. Outpatient followup with Dr. Tenorio, [place] [facility]. No echocardiogram results found for the past 12 months Assessment/Plan: PVC's (premature ventricular contractions) Stable and pt without any symptoms Mixed hyperlipidemia Continue statin Dilatation of aorta (CMS/HCC) Mild dilatation on last echo- will repeat echo at 1 year- Oct-Nov Coronary artery disease involving [place] coronary artery of [place] heart without angina pectoris Coronary artery disease is stable, no concerning symptoms Continue GDMT- ASA, plavix, lipitor continue risk factor modifications- heart healthy diet, regular exercise as tolerated and continue all medications. 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 [facility] Consult note Author Zoila Castorena [facility] August 08, 2022 3:09pm Note Date/Time August 08, 2022 2:08p [facility] at [address] [address] Hem/Onc Consult Note - OP Signed Patient: Pankaj Payne MR#: [id number] : 1945 Acct:[id number] Age/Sex: 77 / M Type: REG RCR Copies to: MD Frantz Dobbins II, MD~ HPI Date/Time of Service: Date of Service: 08/08/2022 Time of Service: 14:07 Referring Provider/PCP: Referring Provider: Frantz Conley II, MD PCP: Frantz Conley II, MD - History of Present Illness Reason for Consultation: Patient was contacted by Dr. Johnston for pancytopenia evaluation. He has not had any infections, bleeding, fatigue, or any other concerning findings over the past year. Followed by Dr. Branch for nonalcoholic steatohepatitis. Chief Complaint: Patient is here today for a referral from Dr Frantz Conley MD for Pancytopenia HPI: Dear Dr. Conley, I had the great pleasure of seeing your patient in consultation. Thank you verymuch for your referral. As you know this is a 77-year-old male with 10-year history of nonalcoholic steatohepatitis. He notes that about 1 year ago he was admitted for laparoscopic cholecystectomy. Following that admission, he was referred to Dr. Branch for EGD for variceal screening due to Plascencia cirrhosis. This EGD showed no evidence of gastric or esophageal varices. Recommended screening was in 3 years. He is scheduled for follow-up with Dr. Branch on 09/18/2022. The patient otherwise notes that he is in fairly good health without any complaints. He has a family history of liver disease in his mother and out of 8siblings all of his sisters were diagnosed with epilepsy. He has an older brother who was diagnosed with cancer involving his lungs and his face but he does not know much details about the etiology. Patient had a remote tobacco history about 40 years ago smoking cigars while he was in the [employer] but was not a regular cigarette smoker. He denies any use of alcohol. He was contacted recently by Dr. Conley concerned that his blood counts had been lower than previous values and that he should see hematology. The patient has had no personal history of abnormal blood counts, a personal history of blood or solid tumor cancer, chemotherapy, or radiation. His laboratories were reviewed from 07/11/2022 showing white blood cell count of 3400, hemoglobin 12.3, MCV 90.9, platelet count 99,000. No absolute neutrophil count or differential was reported on the specimen. From laboratories that were sent to his previous CBC on 08/16/2021 showed a white blood cell count of 5200 with normal absolute neutrophil count of 3500, hemoglobin 12.7, platelet count 100,000. On 07/12/2021he had a normal serum iron of 106 and iron saturation of 26.8. The patient has never required a blood transfusion. He does not have any dietary restrictions and has not had any recent weight loss. He denies any limitations of daily activity and no bowel or bladder symptoms. I reassured himthat he has mild leukopenia and thrombocytopenia which has not significantly changed over the last year, however these changes may be related to a nutritional deficiency, progression of his cirrhosis, or an underlying marrow disorder. For now I recommended repeating his CBC with hemolysis labs to include haptoglobin, LDH, direct antiglobulin testing as well as vitamin B12, folate, serum protein electrophoresis and I will contact Dr. Branch of gastroenterology to consider fibroscan to reevaluate his cirrhosis. I will contact him if he has any significant deficiencies but we will follow-up with him in about 6 weeks after he sees gastroenterology to review his labs and determine if there is any benefit to bone marrow aspiration and biopsy for earlymyelodysplasia. The patient expresses understanding over this 45-minute moderate complexity initial consultation for mild pancytopenia. PMFSH - History Attestation statement: The following information was validated with the patient. Source: Old Records Reviewed - Medical History Medical History: Medical History (Last Reviewed 08/08/22 @ 14:51 by Zoila Castorena MD) Anxiety Arthritis CAD (coronary artery disease) Cholelithiasis CKD (chronic kidney disease) GERD (gastroesophageal reflux disease) Head injury small bleed HTN (hypertension) Hyperlipidemia Hypothyroidism Male circumcision 1952 Non-alcoholic fatty liver disease PVC (premature ventricular contraction) Subarachnoid hemorrhage - Surgical History Surgical History: Surgical History (Last Reviewed 08/08/22 @ 14:51 by Zoila Castorena MD) History of cardiac catheterization with stent History of cataract extraction with lens replacement Hx of cholecystectomy - Family History Family History: Family History (Last Reviewed 08/08/22 @ 14:51 by Zoila Castorena MD) Brother Lung cancer Mother Liver disease Father COPD (chronic obstructive pulmonary disease) Sister Epilepsy Cancer Sister Epilepsy Diabetes mellitus, type 2 Brother Suicide Brother COPD (chronic obstructive pulmonary disease) Sister COPD (chronic obstructive pulmonary disease) - Social History Smoking Status: Never smoker Substance Use Type: None Home Medications & Allergies Allergies No Known Allergies Allergy (Verified 08/08/22 13:53) Home Medications aspirin 81 mg tablet,delayed release 81 mg PO QAM 04/26/21 [History Confirmed 08/08/22] atorvastatin 20 mg tablet 20 mg PO QAM 04/26/21 [History Confirmed 08/08/22] clopidogrel 75 mg tablet 75 mg PO QAM 04/26/21 [History Confirmed 08/08/22] levothyroxine 100 mcg tablet 100 mcg PO QAM 04/26/21 [History Confirmed 08/08/22] multivitamin 1 tab PO QAM 04/26/21 [History Confirmed 08/08/22] omega 5-yve-aou-fish oil 1,000 mg (120 mg-180 mg) capsule (Fish Oil) 1 cap PO TID 04/26/21 [History Confirmed 08/08/22] omeprazole 40 mg capsule,delayed release 40 mg PO BID PRN Heartburn 04/26/21 [History Confirmed 08/08/22] Subjective Data - Diagnosis DIAGNOSIS: 1. Mild pancytopenia 2. Nonalcoholic steatohepatitis 3. Status postcholecystectomy 04/2021 4. Hypertension 5. Hyperlipidemia 6. Prior reported subarachnoid hemorrhage 08/16/2021. 7. Prior cardiac catheterization 10/30/2018 Subjective/ROS - Narrative: CONSTITUTIONAL: Negative for fatigue, negative for fever or night sweats. HEAD AND NECK: Negative for changes in hearing and vision. Negative for mouth ulcers, nasal congestion and nasal drainage. PULMONARY: Negative for chest pain, cough and dyspnea. CARDIOVASCULAR: Negative for claudication and irregular heartbeat/palpitations. GASTROINTESTINAL: Positive for history of nonalcoholic steatohepatitis for over 10 years. Prior viral hepatitis testing reported as negative. No history of ascites or regular alcohol use. Negative for abdominal pain, constipation, decreased appetite, diarrhea, nausea, vomiting, dysphagia or odynophagia. GENITOURINARY: Negative for dysuria and hematuria. ENDOCRINE: Negative for cold intolerance and heat intolerance. CENTRAL NERVOUS SYSTEM: Negative for gait disturbance and headache. No peripheral neuropathy or focal neurologic symptoms. PSYCHIATRIC: Negative for anxiety or depression. DERMATOLOGICAL: Negative for pruritus and rash. Negative for suspicious skin lesions. MUSCULOSKELETAL: Negative for back pain and bone/joint symptoms. HEMATOLOGICAL: Negative for bleeding and easy bruising. Negative for history of transfusion or thromboembolic disease. No history of recent infections. ALLERGY: Negative for environmental allergies and food allergies. ROS Details: All systems reviewed & no additional complaints except as documented Objective - Height/Weight Height/Weight: Height 5 ft 5 in Weight 83.915 kg - Vital Signs Vital Signs: 08/08/22 14:01 Temperature 97.8 F Pulse Rate [Left Brachial] 62 Respiratory Rate 16 Blood Pressure [Left Arm] 144/69 H 02 Sat by Pulse Oximetry 99 Oxygen Delivery Method Room Air Physical Exam Narrative: CONSTITUTIONAL: The patient is in no acute distress. HEAD / FACE: Normocephalic. EYES: Pupils are equal and reactive to light. Conjunctivae and lids are benign in appearance. Ocular movement intact. No scleral icterus. EARS: Hearing grossly intact. NOSE / MOUTH / THROAT: Nose, mouth, tongue and oropharynx are benign in appearance. No signs of inflammation. NECK / THYROID: Neck is supple. Thyroid is symmetrical, without thyromegaly, masses or palpable nodules. LYMPHATIC: No palpable cervical, supraclavicular, axillary, or inguinal adenopathy. RESPIRATORY: Normal to inspection. Lungs clear to auscultation and percussion. No wheezing, rales, rhonchi or rubs. Normal effort. CARDIOVASCULAR: Regular rate and rhythm. No murmurs, gallops, or rubs. VASCULAR: Carotid, radial, femoral and pedal pulses present bilaterally. No bruits. ABDOMEN: Bowel sounds normoactive. Soft, nontender and non-distended. No shifting dullness suggestive of ascites. No hepatosplenomegaly. No masses. GENITOURINARY: No CVA tenderness. No suprapubic fullness or tenderness. No groinadenopathy. No evidence of hernias. INTEGUMENTARY: The skin is unremarkable. No rashes. No suspicious lesions BACK / SPINE: The back is nontender. MUSCULOSKELETAL: Normal musculature, no joint deformities or abnormalities, normal range of motion for all four extremities. EXTREMITIES: No edema, cyanosis or clubbing. No Alina sign. NEUROLOGICAL: Alert and oriented. Cranial nerves intact. No gross motor or sensory deficits. Ambulates independently. PSYCHIATRIC: No anxiety or evidence of depression. - ECOG Performance Status ECOG Score: 0 Results - Labs Outside Labs: His laboratories were reviewed from 07/11/2022 showing white blood cell count of 3400, hemoglobin 12.3, MCV 90.9, platelet count 99,000. No absolute neutrophil count or differential was reported on the specimen. From laboratories that weresent to his previous CBC on 08/16/2021 showed a white blood cell count of 5200 with normal absolute neutrophil count of 3500, hemoglobin 12.7, platelet count 100,000. On 07/12/2021 he had a normal serum iron of 106 and iron saturation of 26.8. - Impressions CT ABDOMEN AND PELVIS WITH INTRAVENOUS CONTRAST: CLINICAL HISTORY: Renal cysts. COMPARISON: Liver ultrasound 09/20/2021 TECHNIQUE: Spiral images were obtained through the abdomen and pelvis followingthe administration of intravenous contrast. This CT exam was performed using one or more following dose reduction techniques: Automated exposure control, adjustment of the mA and/or kV according to patient size, or use of iterative reconstruction technique. FINDINGS: Lung Bases: Reticular changes with some degree of honeycombing. Organs:Gallbladder has been removed. Cirrhotic liver. Portal vein pancreas spleen and adrenal glands all appear unremarkable. Cystic changes involving thekidneys. No suspicious enhancing renal mass is noted. Abdominal aorta demonstrates moderate calcification without aneurysm.[ GI: Stomach is grossly unremarkable. Small bowel appears nondilated. Colonic diverticulosis. Pelvis: The urinary bladder is grossly unremarkable. Prostate gland is normal in size. Peritoneum/Retroperitoneum:No free air, free fluid or lymphadenopathy. Abd wall/Bones:Abdominal wall demonstrates no acute findings. Osseous structures demonstrate degenerative change. CT/CT abdomen pelvis w con IMPRESSION: 1. No acute process. No enhancing renal mass. 2. Cirrhotic liver. 3. Reticular changes with honeycombing of the lung bases. Underlying UIP/IPF cannot be excluded. This can be completely evaluated by high-resolution CT chest. 4. Colonic diverticulosis. Impression dictated by: Kartik Claros Jr., D.O.10/10/2021 4:37 PM Assessment and Plan (1) Pancytopenia, acquired This is a 77-year-old male with known history of nonalcoholic steatohepatitis who has been followed over the last 10 years. He denies any use of alcohol and has had prior viral hepatitis testing that was negative in the past. He was seen by Dr. Branch for variceal screening about 1 year ago after admission for acute cholecystitis with cirrhotic changes on imaging. He has not had any history of gastrointestinal bleeding and was noted on his routine annual laboratories to have some decline in his white blood cell count from 5000 to now 3000 range. He has borderline anemia with hemoglobin 12.3 and normal MCV 90.9. Platelet count is 99,000 which is similar to 100,001-year ago. This is likely related to chronic sequestration from known liver disease and cirrhosis. He reports that he is scheduled to see Dr. Branch on September 18 for annual follow-up of his nonalcoholic steatohepatitis and I will contact Dr. Branch to evaluate for possible FibroScan at that time to evaluate the severity of his cirrhosis. We also discussed other etiologies of acquired pancytopenia. We discussed that frequently B12 and folate are not adequately absorbed in the older adult and we will check rB12, folate, test for hemolysis including reticulocyte count, LDH, direct antiglobulin testing, and haptoglobin. I will send a screening serum protein electrophoresis. At this time I do not see any utility in bone marrow aspiration and biopsy in the absence of constitutional symptoms, weight loss, adenopathy on exam, hepatosplenomegaly, or frequent infections or active bleeding. I will have him follow-up with me in early September after he is seen by gastroenterology to review his laboratories and if he does have any vitamin deficiencies we will potentially contact him sooner for vitamin replacement therapy. Patient expressed understanding over this moderate complexity 45-minute visit for review of outside records and coordination of care with gastroenterology. I would like to thank you very much for the courtesy of this referral. I will keep you up-to-date with this patient's progress. Should you have any questions regarding the management of this patient, please do not hesitate to contact me. 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 We will coordinate follow-up with Dr. Branch as noted above. - Time with Patient Total Time Spent with Patient (Consult): 45 mins - Moderate complexity work-up of pancytopenia, known history of Plascencia cirrhosis. Coordination of Care & Counseling Time: Greater than 50% of time spent with patient was for coordination of care (as documented) and [id number] counseling of patient and/or family. Dictated By: Zoila Castorena MD DD/ [id number] Signed By: <Electronically signed by MD Zoila Castorena> 08/08/22 150[address] [facility] Work Phone: [phone]) 796-372606-22-2022 Evaluation note* Encounter Date Diagnosis Assessment Notes Treatment Notes Treatment Clinical Notes Aug, Fatty liver (ICD-10 - K76.0) ENCOURAGED WATCHING DIET, EXERCISE AND WEIGHT LOSS. WILL NEED TO MONITOR IMAGING EVERY 6 MONTHS. PROCEED WITH EGD Aug, Other cirrhosis of liver (ICD-10 - K74.69) Aug, NAFLD (nonalcoholic fatty liver disease) (ICD-10 - K76.0) Aug, PLASCENCIA (nonalcoholic steatohepatitis) (ICD-10 - K75.81) [employer] Other 05-26-2022 Hospital Discharge instructions* Instructions* Pato Grissom APRN - NP - 08/17/2021 Images from the original note were not included. Discharge Instructions for Trauma Please continue to use your Incentive Spirometer as directed. You can practice 10 deep breaths/hour while awake. Using the Incentive Spirometer will promote the health of your lungs by taking slow, deep breaths in. It is also important in preventing pneumonia or a pneumothorax from developing. What to do after you leave the hospital: General questions or concerns may be called to the trauma nurse line at [phone] and please leave a message. Trauma is a life-threatening condition. Your doctor will want to closely monitor you. Be sure to goto all of your appointments. Follow up with neurosurgery for repeat scan of CT Head in 7-10 days. Need to schedule an appointment with neurosurgery for follow-up after the scan is complete. YOU MAY RESUME ASPIRIN TODAY RESUME YOUR PLAVIX IN 5 DAYS (08/22/2021) Head Injury Discharge Instructions Thank you for choosing [facility] [place] and [facility] for your recovery needs. The following instructions will help to ensure your comfort and that you are wellprepared for your recovery. Follow-up Visit: The office is located at: [facility] [address] [place] [address], [address], [place] [address] [x] Please have a CT scan of your head done prior to this appointment. Please also call your primary care physician to schedule an appointment for further evaluation and care. You can obtain CT head closer to home and have them electronically send the imaging to [facility] so we can see the scan You can follow up with Neurosurgery closer to home of you can do virtual visit with [facility] the outpatient [employer] Ok to restart your ASPIRIN today 08/17 Ok to restart you PLAVIX in 5 days 08/22 Diet: You may resume your regular diet as tolerated. Activity: You should not be left alone. Have a relative or friend stay with you until they think you are backto normal. Do not drive or operate machinery until you are seen in the office. Avoid strenuous activities. No lifting or straining. Pain Management: Do not take aspirin, NSAID medications (Ibuprofen, Naprosyn, etc.) or Abbasi-2 inhibitors (Celebrex, etc.). You may be given a prescription for pain medication. Try not to take the pain medicine unless you need to. If you feel that you do not need something that strong, you may use regular or extra-strength Tylenol instead. DO NOT drink alcohol, drive or operate heavy machinery while taking your pain medications. YOU SHOULD CALL THE OFFICE AT [phone] IF YOU HAVE ANY OF THE FOLLOWING: Worsening headaches or headaches that feel different. Persistent nausea and/or vomiting. Changes in mental status such as confusion, slurred speech, increased sleepiness. Any new neurologic sensory or motor deficits (weakness, numbness) Seizures Loss of memory. Dizziness or fainting. Trouble walking or staggering. Blurry vision, double vision or other problems with your eyesight. Bleeding or clear liquid drainage from your ears or nose. Very sleepy (more than expected) or hard to wake up. Unusual sounds in the ear. Any new or increased symptoms. *If you are unable to contact someone at the office and your symptoms persist or increase, call 911or go to the emergency department. documented in this encounterBON [employer] Phone: 1(330) 792-790005-26-2022 History of Present illness Narrative* Javi Rincon, PT - 08/17/2021 1:49 PM EDT Physical Therapy Facility/Department: [facility] Physical Therapy Initial Assessment Name: Pankaj Payne : 1945 Date of Service: 08/17/2021 Chief Complaint Patient presents with Head Injury Discharge Recommendations: No therapy recommended at discharge PT Equipment Recommendations Equipment Needed: No Patient Diagnosis(es): The primary encounter diagnosis was Subarachnoid hemorrhage following injury, no loss of consciousness, initial encounter ([facility] A diagnosis of Facial laceration, initial encounter was also pertinent to this visit. Past Medical History: has a past medical history of Hyperlipidemia and Hypertension. Past Surgical History: has a past surgical history that includes eye surgery; Cholecystectomy; and vascular surgery (2019). Assessment Assessment: Pt performed well during therapy this date. Pt was able to ambulate 300 feet with no device and supervision, negotiate 6 stairs with a unilateral handrail and supervision. Pt at baseline functional mobility, without additional acute care PT needs. Pt is being discharged from PT at this time. PT should be reordered with a change in medical status. Pt is expected to be safe to return toprior living arrangements upon discharge based on today's session. Therapy Prognosis: Good Decision Making: Low Complexity Requires PT Follow-Up: No Activity Tolerance Activity Tolerance: Patient tolerated treatment well Plan Plan Plan: Discharge Safety Devices Type of Devices: Nurse notified,Call light within reach,Gait belt,Left in chair Restraints Restraints Initially in Place: No Restrictions Restrictions/Precautions Required Braces or Orthoses?: No Position Activity Restriction Other position/activity restrictions: up with assistance; Subjective General Patient assessed for rehabilitation services?: Yes Response To Previous Treatment: Not applicable Family / Caregiver Present: No Follows Commands: Within Functional Limits Subjective Subjective: Pt supine in bed and agreeable to therapy, RN agreeable to therapy. Pt pleasant and cooperative throughout today's session. Social/Functional History Social/Functional History Lives With: Spouse Type of Home: House Home Layout: Multi-level,Bed/Bath upstairs Home Access: Stairs to enter with rails Entrance Stairs - Number of Steps: 12 Entrance Stairs - Rails: Both Bathroom Shower/Tub: Tub/Shower unit Bathroom Toilet: Handicap height Bathroom Equipment: Shower chair Home Equipment: (pt reports owning a cane and walker that his is currently using.) ADL Assistance: Independent Homemaking Assistance: Independent Homemaking Responsibilities: Yes Meal Prep Responsibility: Primary Laundry Responsibility: Primary Cleaning Responsibility: Primary Shopping Responsibility: Primary Ambulation Assistance: Independent Transfer Assistance: Independent Active Disability Rater: Yes 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 & Hobbies: yardwork Additional Comments: pt reports his spouse is recovering from back surgery and pt is performing some caregiving for his spouse as she is recovering for the next 3-4 months Vision/Hearing Vision Exceptions: Wears glasses for reading Hearing: Exceptions to WFL Hearing Exceptions: Hard of hearing/hearing concerns Cognition Cognition Overall Cognitive Status: WFL Objective AROM RLE (degrees) RLE AROM: WFL AROM LLE (degrees) LLE AROM : WFL AROM RUE (degrees) RUE AROM : WFL AROM LUE (degrees) LUE AROM : WFL Strength RLE Strength RLE: WFL Comment: Grossly 4+/5 Strength LLE Strength LLE: WFL Comment: Grossly 4+/5 Strength RUE Comment: Co-eval with OT, see OT note for UE detail. Strength LUE Comment: Co-eval with OT, see OT note for UE detail. Balance Sitting: Impaired (Required Min A initially, improved to SBA with proper positioning; EOB for ~6-7 min) Standing: Intact (~1 min standing EOB prior to mobility) Transfer Training Transfer Training: Yes Overall Level of Assistance: Supervision Sit to Stand: Supervision Stand to Sit: Independent Gait Overall Level of Assistance: Supervision Bed mobility Supine to Sit: Supervision Sit to Supine: (pt retired up to a chair at the conclusion of today's session.) Scooting: Supervision Bed Mobility Comments: HOB elevated ~20 degrees Transfers Sit to Stand: Supervision Stand to sit: Supervision Ambulation Surface: level tile Device: No Device Assistance: Supervision Quality of Gait: good stability, decreased stride length, no LOB. Gait Deviations: Slow Mariola Distance: 300 feet More Ambulation?: No Stairs/Curb Stairs?: Yes Stairs # Steps : 6 Stairs Height: 6 Rails: Right ascending Device: No Device Assistance: Supervision Balance Posture: Fair Sitting - Static: Good Sitting - Dynamic: Good Standing - Static: Good;- Standing - Dynamic: Good;- Comments: standing balance assessed while using no device. AM-PAC Score [facility] Inpatient Mobility Raw Score : 24 (08/17/21 2158) [facility] Inpatient T-Scale Score : 61.14 (08/17/211347) Mobility Inpatient CMS 0-100% Score: 0 (08/17/211347) Mobility Inpatient CMS G-Code Modifier : CH (08/17/211347) Goals Short Term Goals Time Frame for Short term goals: Pt at baseline functional mobility, without additional acute care PT needs. Pt is being discharged from PT at this time. PT should be reordered with a change in medical status. Education Patient Education Education Given To: Patient Education Provided: Role of Therapy;Transfer Training;Plan of Care Education Method: Verbal Barriers to Learning: None Education Outcome: Verbalized understanding Therapy Time Individual Concurrent Group Co-treatment Time In 1002 Time Out 1023 Minutes 21 Timed Code Treatment Minutes: 8 Minutes Javi Rincon PT * Jazmin Connor OT - 08/17/2021 1:06 PM EDT Occupational Therapy Facility/Department: [facility] 1 Occupational Therapy Initial Assessment Name: Pankaj Payne : 1945 Date of Service: 08/17/2021 Chief Complaint Patient presents with Head Injury Discharge Recommendations: No therapy recommended at discharge. Patient Diagnosis(es): The primary encounter diagnosis was Subarachnoid hemorrhage following injury, no loss of consciousness, initial encounter (HCC). A diagnosis of Facial laceration, initial encounter was also pertinent to this visit. Past Medical History: has a past medical history of Hyperlipidemia and Hypertension. Past Surgical History: has a past surgical history that includes eye surgery; Cholecystectomy; and vascular surgery (2019). Assessment Assessment: Patient demonstrates performing functional tasks at baseline level with no acute needs identified. OT to defer further treatment at this time, please re-consult if functional deficits arise impacting performance and safety with ADLs and functional tasks. Prognosis: Good Decision Making: Low Complexity REQUIRES OT FOLLOW-UP: No Activity Tolerance Activity Tolerance: Patient Tolerated treatment well Plan Restrictions Restrictions/Precautions Required Braces or Orthoses?: No Position Activity Restriction Other position/activity restrictions: up with assistance; Subjective General Patient assessed for rehabilitation services?: Yes Family / Caregiver Present: No General Comment Comments: RN ok'd patient for OT/PT evaluation. Pt pleasant, cooperative and agreeable throughout evaluation. Pt denies any pain Social/Functional History Social/Functional History Lives With: Spouse Type of Home: House Home Layout: Multi-level,Bed/Bath upstairs Home Access: Stairs to enter with rails Entrance Stairs - Number of Steps: 12 Entrance Stairs - Rails: Both Bathroom Shower/Tub: Tub/Shower unit Bathroom Toilet: Handicap height Bathroom Equipment: Shower chair Home Equipment: (pt reports owning a cane and walker that his is currently using.) ADL Assistance: Independent Homemaking Assistance: Independent Homemaking Responsibilities: Yes Meal Prep Responsibility: Primary Laundry Responsibility: Primary Cleaning Responsibility: Primary Shopping Responsibility: Primary Ambulation Assistance: Independent Transfer Assistance: Independent Active Disability Rater: Yes 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 & 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: yardwork Additional Comments: pt reports his spouse is recovering from back surgery and pt is performing some caregiving for his spouse as she is recovering for the next 3-4 months Objective Heart Rate: 69 Heart Rate Source: Monitor BP: 139/80 BP Location: Right upper arm BP Method: Automatic Patient Position: High fowlers MAP (Calculated): 99.67 Resp: 19 SpO2: 98 % O2 Device: None (Room air) Vision Exceptions: Wears glasses for reading Hearing: Within functional limits Hearing Exceptions: Hard of hearing/hearing concerns Safety Devices Type of Devices: Nurse notified;Call light within reach;Gait belt;Left in chair Restraints Restraints Initially in Place: No Balance Sitting: Impaired (Required Min A initially, improved to SBA with proper positioning; EOB for ~6-7 min) Standing: Intact (~1 min standing EOB prior to mobility) Transfer Training Transfer Training: Yes Overall Level of Assistance: Supervision Sit to Stand: Supervision Stand to Sit: Independent Gait Overall Level of Assistance: Supervision AROM: Within functional limits Strength: Within functional limits Coordination: Within functional limits Sensation: Intact (denies any numbness or tingling; reports having sensitive feet) ADL Feeding: Independent Grooming: Independent UE Bathing: Independent LE Bathing: Independent UE Dressing: Independent LE Dressing: Independent Toileting: Independent Additional Comments: Patient able to don socks sitting EOB using figure four method at independently Bed mobility Supine to Sit: Supervision Scooting: Supervision Bed Mobility Comments: Retired to bedside recliner at end of session Transfers Sit to stand: Supervision Stand to sit: Independent Cognition Overall Cognitive Status: WFL Education Given To: Patient Education Provided: Role of Therapy;Plan of Care;Fall Prevention Strategies Education Method: Demonstration Education Outcome: Verbalized understanding;Continued education needed AM-PAC Score AM-PAC Inpatient Daily Activity Raw Score: 24 (08/17/21 130) AM-PAC Inpatient ADL T-Scale Score : 57.54 (08/17/21 130) ADL Inpatient CMS 0-100% Score: 0 (08/17/21 130) ADL Inpatient CMS G-Code Modifier : CH (08/17/211306) Goals Therapy Time Individual Concurrent Group Co-treatment Time In 1002 Time Out 1023 Minutes 21 Timed Code Treatment Minutes: 8 Minutes Jazmin Connor OTR/L * Sybil Avalos RN - 08/17/2021 1:00 PM EDT Gave patient discharge instructions verbally and provided discharge packet to take home. Answered all patient questions regarding follow-up appointments, follow up CT scan, and medications. * Rishi Arteaga DO - 08/17/2021 5:44 AM EDT Images from the original note were not included. Trauma Tertiary Survey Admit Date: 08/16/2021 Hospital day 1 Other vehicle: Glance Past Medical History: Diagnosis Date Hyperlipidemia Hypertension Scheduled Meds: atorvastatin 20 mg Oral Nightly levothyroxine 100 mcg Oral Daily therapeutic multivitamin-minerals 1 tablet Oral Daily tiZANidine 4 mg Oral Nightly sodium chloride flush 5-40 mL IntraVENous 2 times per day polyethylene glycol 17 g Oral Daily acetaminophen 1,000 mg Oral 3 times per day Continuous Infusions: sodium chloride sodium chloride 75 mL/hr at 08/17/21 3377 PRN Meds:sodium chloride flush, sodium chloride, ondansetron OR ondansetron Subjective: Patient has no complaints. States that his head feels about the same as before. Denies any vision changes, nausea, vomiting, chest pain, shortness of breath, numbness or tingling. Objective: Patient Vitals for the past 8 hrs: BP Temp Temp src Pulse Resp SpO2 Height Weight 08/17/21 0500 108/81 57 15 98 % 08/17/21 0400 133/66 98.4 F (36.9 C) Oral 62 12 95 % 08/17/21 0300 98/66 54 11 96 % 08/17/21 0200 113/74 97.9 F (36.6 C) Oral 50 15 94 % 08/17/21 0100 103/68 54 15 93 % 08/17/21 0000 101/65 97.5 F (36.4 C) Oral (!) 49 95 % 08/16/21 2300 90/61 56 16 96 % 08/16/21 2200 (!) 147/97 70 12 97 % 08/16/21 2148 (!) 155/95 97.9 F (36.6 C) Axillary 73 12 97 % 5' 5 (1.651 m) 180 lb 9.6 oz (81.9 kg) No intake/output data recorded. I/O this shift: In: 565.5 [I.V.:565.5] Out: 1400 [Urine:1400] Radiology: CT HEAD WO CONTRAST Result Date: 08/16/2021 EXAMINATION: CT OF THE HEAD WITHOUT CONTRAST 08/16/2021 8:38 pm TECHNIQUE: CT of the head was performed without the administration of intravenous contrast. Automated exposure control, iterative reconstruction, and/or weight based adjustment of the mA/kV was utilized to reduce the radiation dose to as low as reasonably achievable. COMPARISON: None. HISTORY: ORDERING SYSTEM PROVIDED HISTORY[facility] TECHNOLOGIST PROVIDED HISTORY: SAH and SDH Decision Support Exception - unselect if not a suspected or confirmed emergency medical condition->Emergency Medical Condition (MA) FINDINGS: BRAIN/VENTRICLES: There is minimal left frontal subarachnoid hemorrhage noted in 1 of the sulci. There is no extra-axial collections. There is no mass effect or midline shift. No abnormal extra-axial fluid collection. The balderrama-white differentiation is maintained without evidence of an acute infarct. There is no evidence of hydrocephalus. ORBITS: The visualized portion of the orbits demonstrate no acute abnormality. SINUSES: The visualized paranasal sinuses and mastoid air cells demonstrate no acute abnormality. SOFT TISSUES/SKULL: There is left frontoparietal scalp swelling/hemorrhage. Minimal left frontal subarachnoid hemorrhage in 1 of the sulci. No evidence of extra-axial collections. Prominent left frontal and parietal scalp swelling/hemorrhage. The findings were sent to the Radiology Results Communication Center at 9:22 pm on 08/16/2021 to be communicated to a licensed caregiver. CT FACIAL BONES WO CONTRAST Result Date: 08/16/2021 EXAMINATION: CT OF THE FACE WITHOUT CONTRAST 08/16/2021 8:38 pm TECHNIQUE: CT of the face was performed without the administration of intravenous contrast. Multiplanar reformatted images are provided for review. Automated exposure control, iterative reconstruction, and/or weight based adjustment of the mA/kV was utilized to reduce the radiation dose to as low as reasonably achievable. COMPARISON: None HISTORY: ORDERING SYSTEM PROVIDED HISTORY: Impact with object riding tube coremaker TECHNOLOGIST PROVIDED HISTORY: Impact with object riding tube coremaker Decision Support Exception - unselect if not a suspected or confirmed emergency medical condition->Emergency Medical Condition (MA) FINDINGS: FACIAL BONES: The maxilla is intact. Pterygoid plates are intact. Zygomatic arches are intact. The mandible is intact. The mandibular condyles are normally situated. The nasal bones and maxillary nasal processes are intact. ORBITS: The globes appear intact. The extraocular muscles, optic nerve sheath complexes and lacrimal glands appear unremarkable. No retrobulbar hematoma or mass is seen. The orbital alamo and rims are intact. SINUSES/MASTOIDS: Scattered nonaggressive mucosal thickening within the frontal and maxillary sinuses and ethmoidal air cells. Mastoid air cells are clear. SOFT TISSUES:Subcutaneous edema noted over the left face, left periorbital region and left side of the scalp. Small focus of subcutaneous emphysema left periorbital region. No acute facial fracture. Soft tissue swelling and ecchymosis of the left face and scalp. PHYSICAL EXAM: GCS: 4 - Opens eyes on own 6 - Follows simple motor commands 5 - Alert and oriented Pupil size: Left 3 mm Right 3 mm Pupil reaction: Yes Wiggles fingers: Left Yes Right Yes Hand grasp: Left normal Right normal Wiggles toes: Left Yes Right Yes Plantar flexion: Left normal Right normal BP 108/81 Pulse 57 Temp 98.4 F (36.9 C) (Oral) Resp 15 Ht 5' 5 (1.651 m) Wt 180 lb 9.6 oz (81.9 kg) SpO2 98% BMI 30.05 kg/m General appearance: alert, appears stated age and cooperative Head: Swelling/contusion to the left frontal scalp with no spreading ecchymosis or active bleeding Neck: no JVD and supple, symmetrical, trachea midline Lungs: clear to auscultation bilaterally Heart: regular rate and rhythm Abdomen: soft, non-tender; bowel sounds normal; no masses, no organomegaly Extremities: extremities normal, atraumatic, no cyanosis or edema Skin: Skin color, texture, turgor normal. No rashes or lesions Neurologic: Cranial nerves intact, moves all extremities equally, sensation intact Spine: Spine Tenderness ROM Cervical 0 /10 Normal Thoracic 0 /10 Normal Lumbar 0 /10 Normal Musculoskeletal Joint Tenderness Swelling ROM Right shoulder absent absent normal Left shoulder absent absent normal Right elbow absent absent normal Left elbow absent absent normal Right wrist absent absent normal Left wrist absent absent normal Right hand grasp absent absent normal Left hand grasp absent absent normal Right hip absent absent normal Left hip absent absent normal Right knee absent absent normal Left knee absent absent normal Right ankle absent absent normal Left ankle absent absent normal Right foot absent absent normal Left foot absent absent normal CONSULTS: neurosurgery PROCEDURES: n/a INJURIES: Patient Active Problem List Diagnosis SAH (subarachnoid hemorrhage) (HCC) Assessment/Plan: See most recent progress note documented in this [facility] [employer] Phone: [phone] Evaluation note* Encounter Date Diagnosis Assessment Notes Treatment Notes Treatment Clinical Notes Jun, Cirrhosis (ICD-10 - K74.60) [employer] Other 03-01-2022 History general Narrative - Reported* Type Description Date Surgical History cholecystectomy 05/2021 Surgical History heart stent Surgical History cataracts, bilaterally [employer] Other 03-01-2022 History general Narrative - Reported* Type Description Date Surgical History cholecystectomy 05/2021 Surgical History heart stent Surgical History cataracts, bilaterally Hospitalization History see surgical hx [employer] Other Evaluation note* Diagnosis SAH (subarachnoid hemorrhage) (HCC)- Primary Subarachnoid hemorrhage Subarachnoid hemorrhage following injury, no loss of consciousness, initial encounter (HCC) Facial laceration, initial encounter Subdural hematoma (HCC) Subdural hemorrhage documented in this encounter [facility] Work Phone: evaluation noteNo assessment information available 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[facility] encounter [facility]* Diagnosis ASHD (arteriosclerotic heart disease) Coronary atherosclerosis of unspecified type of vessel, [place] or graft History of coronary artery stent placement Ascending aorta dilation (CMS/HCC) Thoracic aneurysm without mention of rupture Iron deficiency anemia, unspecified iron deficiency anemia type PVC (premature ventricular contraction) Other premature beats Former cigarette smoker Personal history of tobacco use, presenting hazards to health documented in this encounter [facility] Work Phone: Reason for referral (narrative)* Consultation (Routine) - Authorized Specialty Diagnoses / Procedures Referred By Contac t Referred To Contact Gastroenterology Diagnoses Iron deficiency anemia, unspecified iron deficiency anemia type Procedures AR OFFICE/OUTPATIENT [facility] 60 MINUTES Frantz Conley MD [address] [facility] [address] [place] [address] Mick Branch MD [address] [facility] [address] [place] [address] Referral ID Status Reason Start Date Expiration Date Visits Requested Visits Authorized [id number] Authorized Specialty Services Required 05/08/2023 11/04/2023 1 1 [facility] for visit NarrativePT HERE AT REQUEST OF DR DAY FOR EVALUATION AND TREATMENT OF CIRRHOSIS, REFERRAL NOTE [employer] Other Summary Purpose Family History No Family History Records Found Relationship Condition Age at Onset Recorded Date/T tanja brother Malignant neoplasm of lung Unknown Not Specified Disorder of liver Unknown father Chronic obstructive pulmonary disease Unk nown sister Epilepsy Unknown Malignant neoplasm Unknown Type 2 diabetes mellitus Unknown brother Suicide Unknown brother Chronic obstructive pulmonary disease Unk nown sister Chronic obstructive pulmonary disease Unk nown Advance Directives No Advanced Directives Records FoundLatest Code Status on File Code Status Date Activated Date Inactivated Comments Full Code 08/16/2021 8:15 PM Advance Directive Response Recorded Date/ Time Advance Directives No April 24, 2021 10:52am Advance Directive Response Recorded Date/ Time Advance Directives No April 24, 2021 9:52am Hospital Course Note MR#: [id number] 2 [facility] Pt. Name: Pankaj Payne Admitted: 02/28/2018 Discharged: 03/01/2018 Date of : 1945 Physician: Srinivas Polo MD DISCHARGE SUMMARY PRINCIPAL DIAGNOSES: 1. Coronary artery disease. 2. Angioplasty and stent placement in ostial circumflex region. SECOND DIAGNOSIS: Hypothyroidism. HISTORY OF PRESENT ILLNESS: The patient is a 72-year-old gentleman with a history of hypothyroidism, had no coronary artery disease. He has recently seen his primary care physician and was advised an outpatient stress test, which was positive, so he came for elective cardiac cath. His cardiac cath revealed coronary artery disease including 90% ostial circumflex stenosis, which he underwent balloon angioplasty and stent placement. He also had 80% stenosis in the distal LAD and 80% stenosis in the PDA of the right coronary. He was advised a staged angioplasty on the later date of the other lesion. HOSPITAL COURSE: The patient was admitted to (more content not included)... 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 [address] [place] [address] Referral ID Status Reason Start Date Expiration Date Visits Re quested Visits Authorized [id number] Open 08/24/2021 08/24/2022 1 1 Specialty Diagnoses / Procedures Referred By Contac t Referred To Contact Cardiology Diagnoses PVC (premature ventricular contraction) Procedures Holter Or Event Product Test Engineer Crescencio Marin, DO [address] [facility] [address] [place] [address] Referral ID Status Reason Start Date Expiration Date V isits Requested Visits Authorized [id number] Pending Review 06/20/2023 06/19/2024 1 1 Specialty Diagnoses / Procedures Referred By Contac t Referred To Contact Diagnoses PVC (premature ventricular contraction) Procedures ECG 12 Lead Crescencio Marin, DO [address] [facility] [address] [place] [address] Referral ID Status Reason Start Date Expiration Date V isits Requested Visits Authorized [id number] Authorized 06/20/2023 06/19/2024 1 1 Specialty Diagnoses / Procedures Referred By Contac t Referred To Contact Cardiology Diagnoses ASHD (arteriosclerotic heart disease) Procedures Follow Up In Cardiology Crescencio Marin, DO [address] [facility] [address] [place] [address] TomasCrescencio, DO [address] [facility] [address] [place] [address] Referral ID Status Reason Start Date Expiration Date V isits Requested Visits Authorized [id number] Authorized 06/20/2023 06/19/2024 1 1 Chief Complaint and Reason for Visit Chief Complaint fatty liver fatty liver K76.0 n28.1 R06.00 Chief Complaint pancytopenia Reason for Visit 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) Pancytopenia, acquired Chief Complaint pancytopenia K74.60 K76.0 K75.81 Reason for Visit 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) Pancytopenia, acquired Chief Complaint Unknown Chief Complaint Unknown d61.818 Additional Source Comments (unrecognized sect ion and content) No Status Records FoundNo Status Records FoundNo Status Records FoundNo Status Records FoundNo Status Records FoundNo Status Records FoundNo Status Records FoundNo Status Records FoundNo Status Records Found INFORMATION SOURCE (unrecogn ized section and content) DATE CREATED AUTHOR 03/05/2018 Vicente Livingston [facility] DATE CREATED AUTHOR AUTHOR'S ORGANIZ ATION 11/12/2018 [facility] DATE CREATED AUTHOR AUTHOR'S ORGANIZ ATION 06/08/2021 [facility] dical Specialist DATE CREATED AUTHOR AUTHOR'S ORGANIZ ATION 08/20/2021 [facility] DATE CREATED AUTHOR AUTHOR'S ORGANIZ ATION 11/15/2021 [facility] DATE CREATED AUTHOR AUTHOR'S ORGANIZ ATION 04/06/2023 [facility] DATE CREATED AUTHOR AUTHOR'S ORGANIZ ATION 06/10/2023 [facility] dical Specialists EPIC DATE CREATED AUTHOR AUTHOR'S ORGANIZ ATION 06/14/2023 [facility] DATE CREATED AUTHOR AUTHOR'S ORGANIZ ATION 06/27/2023 [facility] Ambulatory Reason for Visit (unrecogniz ed section and content) Reason Comments Head Injury Reason Comments Follow-up [facility] stay: admitted dx: anemia discharged home 05/01/23 follow up with hematology was 05/07/23 Anemia Reason Comments New Patient Visit Referral for CAD Specialty Diagnoses / Procedures Referred By Olayinka villegas Referred To Contact Diagnoses PVC (premature ventricular contraction) Procedures ECG 12 Lead Crescencio Marin DO [address] [address] Referral ID Status Reason Start Date Expiration Date V isits Requested Visits Authorized [id number] Authorized 06/20/2023 06/19/2024 1 1 Ordered Prescriptions (unrec ognized section and content) Prescription Sig Dispensed Refills Start Date End Da te clopidogrel (PLAVIX) 75 MG tablet Take 1 tablet by mouth daily 30 tablet 3 08/22/2021 clopidogrel (PLAVIX) 75 MG tablet Take 1 tablet by mouth daily 30 tablet 3 08/22/2021 08/17/2021 Scheduled Active and Recently Administ ered Medications (unrecognized section and content) Medication Order 08/15/2021 08/16/2021 08/17/2021 acetaminophen (TYLENOL) tablet 1,000 mg 1,000 mg, Oral, EVERY 8 HOURS SCHEDULED (3 times per day), First dose on Sat08/16/21 at 2200, Until Discontinued, Maximum dose of acetaminophen is 4000 mg from all sources in 24 hours. 2119 (Given - Provider: Josephine Romero RN) 0546 (Given - Provider: Remedios Polanco RN)1400 (Due)2200 (Due) atorvastatin (LIPITOR) tablet 20 mg 20 mg, Oral, Nightly, First dose on Sat08/16/21 at 2100, Until Discontinued 2119 (Given - Provider: Josephine Romero RN) 2100 (Due) levothyroxine (SYNTHROID) tablet 100 mcg 100 mcg, Oral, DAILY, First dose on Sat08/17/21 at 0700, Until Discontinued, Tube feeding (TF) interaction, obtain physician order to manage, recommend holding TF for 30 minutes before and after dose. 0600 (Given - Provid er: Remedios Polanco RN) pantoprazole (PROTONIX) tablet 40 mg 40 mg, Oral, DAILY BEFORE BREAKFAST, First dose on Sat08/17/21 at 0730, Until Discontinued, Do not crush or break. Substituted for Omeprazole (PRILOSEC). 0730 (Not Given - Provider: Sybil Avalos RN - Reason: Other - Comment: med requested, med not on unit. Patient being discharged) polyethylene glycol (GLYCOLAX) packet 17 g 17 g, Oral, DAILY, First dose on Sat08/16/21 at 2030, Until Discontinued 2029 (Due) 0837 (Not Given - Provider: Sybil Avalos RN - Reason: Patient/family refused - Comment: patient refused. states last BM was yesterday afternoon) sodium chloride flush 0.9 % injection 5-40 mL 5-40 mL, IntraVENous, EVERY 12 HOURS SCHEDULED (2 times per day), First dose on Sat08/16/21 at 2100, Until Discontinued, For Line Patency: Peripheral IV = 5 mL; Midline or Central Line = 10 mL/lumen. If following IV push medication, administer flush at same rate as the IV push. Flush volume is determined by type of infusion therapy being given. For non-viscous solutions use: Peripheral IV = 5 mL Midline or Central Line = 10 mL/lumen For viscous solutions (i.e. blood components, parenteral nutrition, contrast media, or after obtaining blood sample) use: Peripheral IV = 10 mL Midline or Central Line = 20 mL/lumen 2210 (Not Given - Provider: Remedios Polanco RN - Reason: IV Fluid Infusing) 08 (Given - Provider: Sybil Avalos, MARISOL)2099 (Due) therapeutic multivitamin-minerals 1 tablet 1 tablet, Oral, DAILY, First dose on Sat08/16/21 at 2030, Until Discontinued 2119 (Given - Provider: Josephine Romero RN) 837 (Given - Provider: Sybil Avalos, MARISOL) tiZANidine (ZANAFLEX) tablet 4 mg 4 mg, Oral, NIGHTLY, First dose on Sat08/16/21 at 2100, Until Discontinued 2014 (Held by provider - Provider: Rishi Arteaga DO - Reason: Other)2015 (Unheld by provider - Provider: Rishi Arteaga DO)2119 (Given - Provider: Josephine Romero RN) 2099 (Due - Provider: Rishi Arteaga DO) Continuous Medication Order 08/15/2021 08/16/2021 08/17/2021 0.9 % sodium chloride infusion (CANCELED) IntraVENous, at 75 mL/hr, CONTINUOUS, Starting on Sat08/16/21 at 2030 2122 (New Bag - Provider: Josephine Romero RN)2124 (Rate/Dose Verify - Provider: Remedios Polanco RN) 0020 (Rate/Dose Verify - Provider: Remedios Polanco RN)0457 (Rate/Dose Verify - Provider: Remedios Polanco RN)0707 (Rate/Dose Verify - Provider: Remedios Polanco RN)1009 (Stopped - Provider: Sybil Avalos RN) PRN Medication Order 08/15/2021 08/16/2021 08/17/2021 0.9 % sodium chloride infusion IntraVENous, at 5-250 mL/hr, PRN, if patient receiving piggyback infusions and maintenance fluids are not ordered OR KVO fluids to protect IV site / prevent frequent line interruptions/ long duration, Starting on Sat08/16/21 at 2014, For piggyback infusion, administer at same rate as piggyback for a total of 25 mL. Enter 25 mL into dose field and piggyback rate into rate field of order. If piggyback is infusing at a rate less than 100 mL/hr, enter 25 mL into dose field and 100 mL/hr into rate field of order. For KVO fluids, enter rate of 20 mL/hr or less into rate field of order. ondansetron (ZOFRAN) injection 4 mg(Linked Group 1) 4 mg, IntraVENous, EVERY 6 HOURS PRN, Starting on Sat08/16/21 at 2014, Until Discontinued, Nausea, Vomiting, Administer if oral route cannot be used. ondansetron (ZOFRAN-ODT) disintegrating tablet 4 mg(Linked Group 1) 4 mg, Oral, EVERY 8 HOURS PRN, Starting on Sat08/16/21 at 2014, Until Discontinued, Nausea, Vomiting sodium chloride flush 0.9 % injection 5-40 mL 5-40 mL, IntraVENous, PRN, Starting on Sat08/16/21 at 2014, Until Discontinued, Line Care, After every IV line use, For Line Patency: Peripheral IV = 5 mL; Midline or Central Line = 10 mL/lumen. If following IV push medication, administer flush at same rate as the IV push. Flush volume is determined by type of infusion therapy being given. For non-viscous solutions use: Peripheral IV = 5 mL Midline or Central Line = 10 mL/lumen For viscous solutions (i.e. blood components, parenteral nutrition, contrast media, or after obtaining blood sample) use: Peripheral IV = 10 mL Midline or Central Line = 20 mL/lumen Linked Groups Order Group 1: ondansetron (ZOFRAN-ODT) disintegrating tablet 4 mgJump to med 4 mg, Oral, EVERY 8 HOURS PRN, Starting on Sat08/16/21 at 2014, Until Discontinued, Nausea, Vomiting Or ondansetron (ZOFRAN) injection 4 mgJump to med 4 mg, IntraVENous, EVERY 6 HOURS PRN, Starting on Sat08/16/21 at 2014, Until Discontinued, Nausea, Vomiting
Administer if oral route cannot be used.
Care Teams (unrecognized sec tion and content) Team Status: Active Member Role Status Dates Frantz Conley II MD Primary Care Provider Active Team Status: Inactive Member Role Status Dates Jose Manning MD Attending Provider Active Sta rt: May 01, 2023 End: May 01, 2023 Team Status: Inactive Member Role Status Dates Frantz Conley II MD Primary Care Provid er, Attending Provider Active Start: June 05, 2023 End: June 05, 2023 Helmet Binder Relationship Specialty Start Date End Date Frantz Conley MD [address] [place] [address] PCP - General Internal Medicine 08/16/21 Team Status: Inactive Member Role Status Dates Frantz Conley II MD Primary Care Provider Active Mick Branch MD Attending Provider Active Team Status: Inactive Member Role Status Dates Frantz Conley II MD Primary Care Provider, Attending Provider Active Team Status: Active Member Role Status Dates Frantz Conley II MD Primary Care Provider, Referring Provider Active Zoila Castorena MD Attending Provider Active Helmet Binder Relationship Specialty Start Date End Date Frantz Conley MD [address] [place] [address] PCP - General Internal Medicine 08/08/22 Frantz Conley MD [address] [place] [address] PCP - ACO Reach 08/16/22 Helmet Binder Relationship Specialty Start Date End Date Frantz Conley MD [address] [place] [address] PCP - General Internal Medicine 08/08/22 Frantz Conley MD [address] [place] [address] PCP - ACO Reach 08/16/22 Helmet Binder Relationship Specialty Start Date End Date Frantz Conley MD [address] [place] [address] PCP - General Internal Medicine 06/20/23 Goals (unrecognized section and content) Goals may be documented in a n alternate section FOR RECORDS PERTAINING TO PATIENTS WHO ARE OR HAVE BEEN ENROLLED IN A CHEMICAL DEPENDENCY/SUBSTANCEABUSE PROGRAM, SOME INFORMATION MAY BE OMITTED. This clinical summary was aggregated from multiple sources. Caution should be exercised in using it in the provision of clinical care. This summary normalizes information from multiple sources, and as a consequence, information in this document may materially change the coding, format and clinical context of patient data. In addition, data may be omitted in some cases. CLINICAL DECISIONS SHOULD BE BASED ON THE PRIMARY CLINICAL RECORDS. [employer] [facility]. provides no warranty or guarantee of the accuracy or completeness of information in this document.
[2023-06-28 12:41] LABS: Percent Iron Saturation 9.1 %
== END 2023-06-28 10:31 | disposition home or self-care (01) ==
LOC: LAB 10:32
PROVIDERS: PCP Internal Medicine; Visit Provider Internal Medicine Hematology & Oncology
DX: D64.9 Anemia, unspecified (principal); D50.9 Iron deficiency anemia, unspecified; D50.0 Iron deficiency anemia secondary to blood loss (chronic); K90.9 Intestinal malabsorption, unspecified; D72.819 Decreased white blood cell count, unspecified; D69.6 Thrombocytopenia, unspecified
CPT/HCPCS: 36415; 82728; 83540; 83550; 85025

== ENCOUNTER 2023-07-10 07:32 | Outpatient (RCR) | payer MEDICARE, OTHER, SELFPAY ==
[2023-07-10 11:05] VITALS: BP 109/59; PULSE 61; TEMP 36.6; O2SAT 98
[2023-07-10] MEDS: FERUMOXYTOL 510 MG in 0.9 % SODIUM CHLORIDE 100 ML 234 MG IV (11:14)
--- NOTE | 2023-07-10 11:38 | PC.NURSE ---
1105: Pt. to [facility] amb. Seated in recliner. VSS. IV initiated to left hand without difficulty. Pt. tolerates without c/o. Given coffee. Denies needs. 1114: IV Feraheme initiated as ordered.
--- NOTE | 2023-07-10 12:00 | PC.NURSE ---
1155: Feraheme infused without s&s of adverse reaction. IV d/c'd, pressure to site. Pt. d/c'd amb. to home.
== END 2023-07-23 23:59 | disposition home or self-care (01) ==
LOC: INF 07:32
PROVIDERS: PCP Internal Medicine; Visit Provider Internal Medicine Hematology & Oncology
DX: D50.9 Iron deficiency anemia, unspecified (principal); D72.819 Decreased white blood cell count, unspecified; D69.6 Thrombocytopenia, unspecified; K90.9 Intestinal malabsorption, unspecified
CPT/HCPCS: 96365; G0463; Q0138

== ENCOUNTER 2023-10-17 07:31 | Outpatient (RCR) | payer MEDICARE, OTHER, SELFPAY ==
[2023-10-17] MEDS: FERUMOXYTOL 510 MG in 0.9 % SODIUM CHLORIDE 100 ML 234 MG IV (11:14)
[2023-10-17 11:27] VITALS: BP 117/64; PULSE 72; TEMP 36.6; O2SAT 98
--- NOTE | 2023-10-17 11:32 | PC.NURSE ---
1100 Arrival ambulatory. #22 iv initiated LACF, jessy well. labs drawn and sent to lab. educated on iron infusions, patient states he has had several in past, voices no concerns
[2023-10-18 14:12] LABS: t-Transglutaminase (tTG) IgA <2 U/mL (0-3)
== END 2023-10-23 23:59 | disposition home or self-care (01) ==
LOC: INF 07:31
PROVIDERS: PCP Internal Medicine; Visit Provider Internal Medicine Hematology & Oncology
DX: D50.9 Iron deficiency anemia, unspecified (principal); D50.0 Iron deficiency anemia secondary to blood loss (chronic); K90.9 Intestinal malabsorption, unspecified; D72.819 Decreased white blood cell count, unspecified; D69.6 Thrombocytopenia, unspecified; I25.10 Atherosclerotic heart disease of native coronary artery without angina pectoris
CPT/HCPCS: 36415; 86364; 96365; G0463; Q0138

== ENCOUNTER 2023-10-31 08:56 | Outpatient (RCR) | payer MEDICARE, OTHER, SELFPAY ==
[2023-10-31 10:14] VITALS: BP 114/65; PULSE 55; TEMP 36.4; O2SAT 96
[2023-10-31] MEDS: FERUMOXYTOL 510 MG in 0.9 % SODIUM CHLORIDE 100 ML 234 MG IV (10:16)
== END 2023-11-23 23:59 | disposition home or self-care (01) ==
LOC: HEMC 08:56
PROVIDERS: PCP Internal Medicine; Visit Provider Internal Medicine Hematology & Oncology
DX: D50.9 Iron deficiency anemia, unspecified (principal); D50.0 Iron deficiency anemia secondary to blood loss (chronic); K90.9 Intestinal malabsorption, unspecified; D72.819 Decreased white blood cell count, unspecified; D69.6 Thrombocytopenia, unspecified
CPT/HCPCS: 96365; Q0138

== ENCOUNTER 2023-12-05 14:48 | Outpatient (OUT) | payer MEDICARE, OTHER, SELFPAY ==
--- OUTSIDE RECORDS SUMMARY | 2023-12-05 15:05 | XMS_ITS | CCD ---
Author Organization [facility] [place] [facility]iniSymo Care Team Providers Care Bariatric Program Coordinator Name Role Phone Zahler, Hardeep Unavailable Unavailable Zahler, Hardeep Unavailable Unavailable Flakito Hardeep Unavailable Unavailable FRANTZ CONLEY Unavailable Unavailable Zahler, Hardeep Unavailable Unavailable Zahler, Hardeep Unavailable Unavailable Flakito Hardeep Unavailable Unavailable FRANTZ CONLEY Unavailable Unavailable INDIA ANDREA Admitting Unavailable SRINIVAS POLO Attending Unavailable FRANTZ TENORIO Referring Unavailable FRANTZ CONLEY Primary Care Unavailable JOSIAH SCHAFER Admitting Unavailable JOSIAH SCHAFER Attending Unavailable FRANTZ CONLEY Referring Unavailable FRANTZ CONLEY Primary Care Unavailable Frantz Conley MD Primary Care Provider SHANTANU MARIE Consulting Unavailable FRANTZ CONLEY Primary Care Unavailable HELENA BARRERA Admitting Unavailable HELENA BARRERA Attending Unavailable Mick Branch Unavailable DR FRANTZ CONLEY Primary Care Unavailable RICHMOND, DR ROCHA Admitting Unavailable NKECHI, DR STEPHEN Rasheed Consulting Unavailable RICHMOND, DR ROCHA Attending Unavailable HERMES MITCHELL Consulting Unavailable KEILY RENTERIA Attending Unavailable Yadira, DR Ordaz Consulting Unavailable DR FRANTZ CONLEY Primary Care Unavailable KEILY RENTERIA Admitting Unavailable HERMES MITCHELL Consulting Unavailable KEILY RENTERIA Consulting Unavailable SUKH CROFT Consulting Unavailable DR FRANTZ CONLEY Primary Care Unavailable JARVIS, DR LANDRY Admitting Unavailable JARVIS, DR LANDRY Attending Unavailable JARVIS, DR LANDRY Consulting Unavailable MICK BRANCH Attending Unavailable MICK BRANCH Consulting Unavailable JARVIS, DR LANDRY Primary Care Unavailable MICK BRANCH Admitting Unavailable ELTAHAWAram, DR CARVAJAL Admitting Unavailable ELLEANN, DR CARVAJAL Attending Unavailable ELLEANN, DR CARVAJAL Consulting DR FRANTZ Burt Primary Care Unavailable LIBBY Conley Primary Care Provider MD Mick Branch Attending Provider [phone] LIBBY Conley Attending Provider [phone] LIBBY Conley Primary Care Provider LIBBY Conley Referring Provider MD Zoila Castorena Attending Provider MD Mick Branch Attending Provider ARABELLA MURPHY Attending Unavailable MD Jose Manning Attending Provider Frantz Conley MD Primary Care Provider Frantz Conley MD Unavailable MD Jose Manning Attending Provider Jarvis, LIBBY Landry Primary Care Provider LIBBY Conley Attending Provider Frantz Conley MD Primary Care Provider CRESCENCIO MARIN Attending Unavailable FRANTZ CONLEY Primary Care Unavailable CRESCENCIO MARIN Referring Unavailable FRANTZ CONLEY Primary Care Unavailable LIBBY Conley Primary Care Provider [phone] MD Mick Branch Attending Provider FRANTZ CONLEY Attending Unavailable FRANTZ CONLEY Attending Unavailable FRANTZ CONLEY Attending Unavailable FRANTZ CONLEY Attending Unavailable ROSANNA DALY Attending Unavailable Frantz Conley Attending Unavailable Jarvis Frantz Primary Care Unavailable Frantz Conley Admitting Unavailable Jarvis, Frantz Primary Care Unavailable Mick Branch Attending Unavailable Mick Branch Admitting Unavailable Jarvis, Frantz Primary Care Unavailable Mick Branch Attending Unavailable Mick Branch Admitting Unavailable Jarvis, Frantz Primary Care Unavailable Mick Branch Admitting Unavailable Mick Branch Attending Unavailable Jose Manning Attending Unavailable Jose Manning Admitting Unavailable Allergies Allergy Classification Reported Allergen(s) Allergy Type Date of Onset Reaction(s) Facility (1 source) ALLERGIES NOT ON FILE; Translations: [ALLERGIES NOT ON FILE] Propensity to adverse reactions (disorder) [facility] Repository Medications Current Medications Medication Drug Class(es) Dates Sig (Normalized) Sig (Original) atorvastatin 20 mg oral tablet (18 sources) HMG-CoA Reductase Inhibitor Start: 04-26-2021 take 20 mg by mouth once daily in the morning Atorvastatin Active 20 MG PO Every morning April 26, 2021 1:00am carvedilol 3.125 mg oral tablet (2 sources) alpha-Adrenergic Alfredo, beta-Adrenergic Alfredo Start: 10-23-2023 take 3.125 mg by mouth twice daily at mealtime Carvedilol Active 3.125 MG PO Twice daily 60 October 23, 2023 12:00am must administer with a meal/food clopidogrel 75 mg oral tablet (19 sources) [id number] Platelet Inhibitor Start: 04-05-2023 take [...] Start: 08-22-2021 take 1 tablet by lakesha th once daily clopidogrel (PLAVIX) 75 MG tablet [...] mo uth once daily fish oil concentrate ([place]-3) 120-180 mg capsule Take 1 capsule (1,000 mg) by mouth once daily. 0 Active take 1 capsule by mouth three ti mes daily [place]-3 Fatty Acids (FISH OIL) 1000 MG CAPS Take 1,000 mg by mouth 3 times daily 0 Active Fish Oils (3 sources) Fish Oil 1000 MG DAILY Active levothyroxine sodium 0.088 mg oral tablet (20 sources) l-Thyroxine Start: 10-09-2023 take 88 ug by mouth once daily Levothyroxine Active 88 MCG PO Daily October 09, 2023 12:00am Start: 05-14-2023 take 1 tablet by lakesha th once daily before mealtime levothyroxine (Synthroid, Levoxyl) 88 mcg tablet Take 1 tablet (88 mcg) by mouth once daily in the morning. Take before meals. Take on an empty stomach. 0 05/14/2023 Active Start: 04-26-2021 End: 10-09-2023 take 100 ug by mouth once daily in the morning Levothyroxine Discontinued 100 MCG PO Every morning April 26, 2021 1:00am October 09, 2023 8:44am take 1 tablet by lakesha th once daily in the morning Synthroid 100 MCG 1 tablet in the morning on an empty stomach Orally Once a day Active Multiple Vitamins-Minerals (ONE DAILY ADULTS 50+ PO) (3 sources) take 1 tablet by mouth once daily Multiple Vitamins-Minerals (ONE DAILY ADULTS 50+ PO) Take 1 tablet by mouth 1 (one) time each day. 0 Active Multiple Vitamins-Minerals (THERAPEUTIC MULTIVITAMIN-MINERALS) tablet (1 source) take 1 tablet by mouth once daily Multiple Vitamins-Minerals (THERAPEUTIC MULTIVITAMIN-MINERALS) tablet Take 1 tablet by mouth daily 0 Active Multivitamin preparation (12 sources) Start: 04-26-2021 take 1 tablet by [...] tablet by mouth once daily. 0 Active [place] 6-Tux-Pip-Fish Oil (Fish Oil) 1,000 mg (120 mg-180 mg) Capsule (9 sources) Start: 04-26-2021 take 1 capsule by mouth three times daily [place] 6-Czx-Qki-Fish Oil (Fish Oil) 1,000 mg (120 mg-180 mg) Capsule Active 1 CAP PO Three times daily April 26, 2021 12:00am Start: 04-26-2021 take 1 capsule by mo uth three times daily [place] 9-Goy-Lna-Fish Oil (Fish Oil) 1,000 mg (120 mg-180 mg) Capsule Active 1 CAP PO Three times daily April 26, 2021 1:00am [place]-3 Fatty Acids (Fish Oil) 1000 MG capsule delayed-release (3 sources) Start: 09-13-2014 take 1 capsule by mouth once daily [place]-3 Fatty Acids (Fish Oil) 1000 MG capsule delayed-release Take 1 capsule by mouth 1 (one) time each day. 0 09/13/2014 Active omeprazole 40 mg delayed release oral capsule (20 sources) Proton Pump Inhibitor Start: 04-26-2021 End: 01-09-2024 take 40 mg by mouth twice daily Omeprazole Active 40 MG PO Twice daily September 17, 2023 11:10am take 1 capsule by mouth once jamel ly omeprazole (PRILOSEC) 40 MG delayed release capsule Take 40 mg by mouth daily 0 Active ondansetron (ZOFRAN-ODT) disintegrating tablet 4 mg (1 source) Start: 08-16-2021 ondansetron (ZOFRAN-ODT) disintegrating tablet 4 mg tiZANidine 4 mg oral tablet (20 sources) Central alpha-2 Adrenergic Agonist Start: 10-09-2023 take 1 tablet by mouth twice daily as needed Tizanidine Active 4 MG PO Twice daily October 09, 2023 12:00am FreeTextSi tablet as needed Orally bid prn; Note: Source Status: Taking; Provider: Sarina Barton ( ) Start: 04-18-2023 tiZANidine (Za naflex) 4 mg tablet 1 tablet (4 mg) [...] / HYDROcodone bitartrate 5 mg oral tablet (9 sources) Opioid Agonist Start: 05-10-2021 End: 09-19-2021 take 1 tablet by mouth every six hours Hydrocodone-Acetami nophen Discontinued 1 TAB PO Q6H 30 7 May 10, 2021 September 19, 2021 11:42am aspirin 81 mg delayed release oral tablet (16 sources) Platelet Aggregation Inhibitor, Nonsteroidal Anti-inflammatory Drug Start: 04-26-2021 End: 09-17-2023 take 81 mg by mouth once daily in the morning Aspirin Discontinued 81 MG PO Every morning April 26, 2021 1:00am September 17, 2023 11:09am take 1 tablet by mouth once emma y aspirin 81 MG chewable tablet Take 81 mg by mouth daily 0 Active meclizine hydrochloride 25 mg oral tablet (5 sources) Antiemetic Start: 09-17-2023 End: 10-09-2023 take 25 mg by mouth once daily Meclizine Discontinued 25 MG PO Daily September 17, 2023 12:00am October 09, 2023 8:46am take 1 tablet by lakesha th every twenty-four hours Meclizine HCl 25 MG 1 tablet Orally once a day Active pantoprazole 40 mg delayed release oral tablet (1 source) Proton Pump Inhibitor Start: 08-17-2021 take 40 mg by mouth once daily before breakfast 40 mg, Oral, DAILY BEFORE BREAKFAST, First dose on Sat08/17/21 at 0730, Until Discontinued Do not crush or break. Substituted for Omeprazole (PRILOSEC). polyethylene glycol 3350 [id number] mg powder for oral solution (1 source) Osmotic Laxative Start: 08-16-2021 17 g, Oral, D AILY, First dose on Sat08/16/21 at 2030, Until Discontinued 1000 ml sodium chloride 9 mg/ml injection (4 sources) Start: 08-16-2021 End: 08-17-2021 0.9 % sodium chloride infusion Start: 08-16-2021 IntraVENous, a t 5-250 mL/hr, PRN, if patient receiving piggyback infusions and maintenance fluids are not ordered OR KVO fluids to protect IV site / prevent frequent line interruptions/ long duration, Starting on Sat08/16/21 at 2014 For piggyback infusion, administer at same rate [...] site] Onset: 11-08-2021 Chronic Biliary tract disease (19 sources) Calculus of gallbladder without cholecystitis without [...] myocardial infarction; Translations: [Atherosclerotic heart disease of [place] coronary artery without angina pectoris] Onset: 02-07-2021 Chronic Coronary atherosclerosis and other heart disease (3 sources) Presence of coronary angioplasty implant and graft; Translations: [PRESENCE COR ANGPLSTY IMPLANT AND GRAFT] Onset: 02-07-2021 Episodic Deficiency and other anemia (13 sources) Acquired pancytopenia; Translations: [Other pancytopenia] Onset: [...] [Benign essential hypertension] Onset: 09-17-2022 Chronic Hepatitis (20 sources) Nonalcoholic steatohepatitis; Translations: [Nonalcoholic steatohepatitis (PLASCENCIA)] [...] Onset: 08-18-2021 Episodic Other aftercare (1 source) 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; Translations: [BLANKET WEAVER CURRENT USE OF ASPIRIN] Onset: 08-18-2021 Episodic Other aftercare (1 source) parts counterman (current) use of antithrombotics/antipl atelets; Translations: [BLANKET WEAVER ANTITHROMBOT/ANTIPLATL ETS] Onset: 08-18-2021 Episodic Other injuries and conditions due to external causes (3 sources) Unspecified injury of head, initial encounter; Translations: [UNSPECIFIED INJURY HEAD INITIAL ENC] Onset: 08-16-2021 Episodic Other liver diseases (7 sources) Cirrhosis of liver; Translations: [Other cirrhosis of liver] Onset: 08-13-2022 08-13-2022 Chronic Other liver diseases (14 sources) Unspecified cirrhosis of liver; Translations: [Cirrhotic] Onset: 07-11-2021 Resolved: 07-11-2021 Chronic Other liver diseases (2 sources) Non-alcoholic fatty liver; Translations: [Fatty (change of) liver, not elsewhere classified] Chronic Other liver diseases (16 sources) Fatty (change of) liver, not elsewhere classified; Translations: [Other chronic nonalcoholic liver disease] Onset: 09-13-2021 Resolved: 09-13-2021 Chronic Other liver diseases (1 source) Other cirrhosis of liver Onset: 09-13-2021 Resolved: 09-13-2021 Chronic Other liver diseases (4 sources) Cirrhosis - non-alcoholic; Translations: [Unspecified cirrhosis of liver] 09-17-2023 Chronic Other nervous system disorders (3 sources) Chronic pain; Translations: [Other chronic pain] Onset: 08-13-2022 08-13-2022 Chronic Other screening for suspected conditions (not mental disorders or infectious disease) (4 sources) Liver function tests abnormal; Translations: [Other specified abnormal findings of blood chemistry] Onset: 08-13-2022 08-13-2022 Episodic Screening and history of mental health and [...] 08-13-2022 Episodic Other aftercare (1 source) Other director long term care (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 therapy; Translations: [OTH BLANKET WEAVER CURRENT DRUG THERAPY] Onset: 02-07-2021 Episodic Other [...] [Unsteadiness on feet] Onset: 08-13-2022 08-13-2022 Episodic Unclassified (1 source) CONTACT W/AND (SUSP) EXPOS COVID-19; Translations: [CONTACT W/AND (SUSP) EXPOS COVID-19] Onset: 03-01-2021 Unclassified (1 source) Onset: 06-20-2023 06-20-2023 Results Test Name Value Interpretation Reference Range Facility No Panel InformationOrdered By: Mick Branch on 10-23-2023 Miscellaneous Pathology Test See comment [facility] Comment on above: See report. Scanned copy available in EMR. Pathology Request for Lab Co rpon 10-23-2023 Pathology Request for Lab Deyvi Normal [facility] Comment on above: Order Comment: PATHO LOGY GI SPECIMEN Result Comment: See report. Scanned copy available in EMR. PERFORMED BY: [place] [address] PATHOLOGIST BENCH SHEAR OPERATOR DENNISE PATRICK M.D. Performed By: #### P ATH TO [facility] #### [address] US liveron 10-01-2023 liver [facility] Main [place] [address] [place] [address] Ultrasound Report Signed Patient: Pankaj Payne MR#: [id number] : 1945 Acct:[id number] Age/Sex: 78 / M ADM Date: 10/01/23 Loc: Room: Type: [facility] Attending Dr: Mick Branch MD Ordering Provider: Mick Branch MD Date of Service: 10/01/23 US/US liver: K74.60 - Unspecified cirrhosis of liver Copies to: Mick Branch MD LIMITED ABDOMINAL ULTRASOUND: CLINICAL HISTORY: Cirrhosis. COMPARISON: Liver ultrasound 10/04/2022 TECHNIQUE: Grayscale and color Doppler images of the right upper quadrant organs were obtained. FINDINGS: Pancreas: Visualized portions appear unremarkable. Liver: Cirrhotic appearing liver without focal mass or intrapelvic no ductal dilatation. Hepatopedal flow is seen within the portal vein. Gallbladder: Removed. CBD: 4.9 mm. Visualized right kidney demonstrates a simple appearing cyst without hydronephrosis. US/US liver IMPRESSION: CIRRHOTIC APPEARING LIVER WITHOUT MASS.. Impression dictated by: Kartik Claros Jr., D.OKita10/01/2023 4:25 PM Dictation Location: [place] [address] Tech: [facility] Transcribed By: USMAN 10/01/23 1625 Dictated By: Kartik Claros Jr, DO 10/01/23 1624 Signed By: 10/01/23 1625 Normal [facility] AFP Tumor Marker, Serumon AFP Tumor Marker, Serum 3.0 ng/mL Normal 0.0-8.4 [facility] Comment on above: Result Comment: [facility] Electrochemiluminescence Immunoassay (ECLIA) Values obtained with different assay methods or kits cannot be used interchangeably. Results cannot be interpreted as absolute evidence of the presence or absence of malignant disease. This test is not interpretable in females. Performed at: [facility] [address] [id number] Thermoforming Operator: Charlie Klein PhD, Phone: [phone] PERFORMED BY: [place] [address] PATHOLOGIST BENCH SHEAR OPERATOR DENNISE PATRICK M.D. Performed By: #### F E and TIBC, CMP, PT, MAGDALENA, DIFF CBC #### [facility] [address] [place] [address] #### AFPTM #### [facility] , Alanine aminotransferase [En zymatic activity/volume] in Serum or PlasmaOrdered By: Mick Branch on 09-17-2023 ALT [Catalytic activity/Vol] 43 U/L Normal 7-52 [facility] Comment on above: Performed By: #### F E and TIBC, CMP, PT, MAGDALENA, DIFF CBC #### [place] [address] [place] #### AFPTM #### [facility] , Albumin [Mass/volume] in Ser um or Plasma by Bromocresol green (BCG) dye binding methoOrdered By: Mick Branch on 09-17-2023 Albumin BCG dye [Mass/Vol] 3.9 g/dL 3.5-5.7 [facility] Alkaline phosphatase [Enzyma tic activity/volume] in Serum or PlasmaOrdered By: Mick Branch on 09-17-2023 ALP [Catalytic activity/Vol] 138 U/L High 34-104 [facility] Comment on above: Performed By: #### F E and TIBC, CMP, PT, MAGDALENA, DIFF CBC #### [facility] [address] [place] [address] [place] #### AFPTM #### [facility] , Anisocytosis [Presence] in B lood by Light microscopyOrdered By: Mick Branch on 09-17-2023 Anisocytosis Ql (Bld) Slight Normal [facility] Comment on above: Performed By: #### F E and TIBC, CMP, PT, MAGDALENA, DIFF CBC #### [place] [address] [place] #### AFPTM #### [facility] , Aspartate aminotransferase [ Enzymatic activity/volume] in Serum or PlasmaOrdered By: Mick Branch on 09-17-2023 AST [Catalytic activity/Vol] 49 U/L High 13-39 [facility] Comment on above: Performed By: #### F E and TIBC, CMP, PT, MAGDALENA, DIFF CBC #### [place] [address] [place] #### AFPTM #### [facility] , Basophils Auto (Bld) [#/Vol] Ordered By: Mick Branch on 09-17-2023 Basophils (Bld) [#/Vol] N/A [facility] Basophils/100 WBC Auto (Bld) Ordered By: Mick Branch on 09-17-2023 Basophils/100 WBC (Bld) N/A [facility] Bilirubin.total [Mass/volume ] in Serum or PlasmaOrdered By: Mick Branch on 09-17-2023 Bilirubin [Mass/Vol] 0.6 mg/dL Normal 0.3-1.0 [facility] Comment on above: Performed By: #### F E and TIBC, CMP, PT, MAGDALENA, DIFF CBC #### [facility] [address] [place] [address] [place] #### AFPTM #### [facility] , Calcium [Mass/volume] in Ser um or PlasmaOrdered By: Mick Branch on 09-17-2023 Calcium [Mass/Vol] 8.8 mg/dL Normal 8.6-10.3 [facility] Comment on above: Performed By: #### F E and TIBC, CMP, PT, MAGDALENA, DIFF CBC #### [place] [address] [place] #### AFPTM #### [facility] , Carbon dioxide, total [Moles /volume] in Serum or PlasmaOrdered By: Mick Branch on 09-17-2023 CO2 [Moles/Vol] 27.5 mmol/L Normal 21.0-31.0 [facility] Comment on above: Performed By: #### F E and TIBC, CMP, PT, MAGDALENA, DIFF CBC #### [address] #### AFPTM #### [facility] , Chloride [Moles/volume] in S lilly or PlasmaOrdered By: Mick Branch on 09-17-2023 Chloride [Moles/Vol] 111 mmol/L High 98-107 [facility] Comment on above: Performed By: #### F E and TIBC, CMP, PT, MAGDALENA, DIFF CBC #### [place] [address] [place] #### AFPTM #### [facility] , Comprehensive Metabolic Pane ross 09-17-2023 Albumin [Mass/Vol] 3.9 g/dL Normal 3.5-5.7 [facility] Comment on above: Performed By: #### F E and TIBC, CMP, PT, MAGDALENA, DIFF CBC #### [place] [address] [place] #### AFPTM #### [facility] , GFR/1.73 sq M.predicted MDRD (S/P/Bld) [Vol rate/Area] mL/min/{1.73_m2} Normal [facility] Comment on above: Performed By: #### F E and TIBC, CMP, PT, MAGDALENA, DIFF CBC #### [facility] [address] [place] [address] [place] #### AFPTM #### [facility] , Creatinine [Mass/volume] in Serum or PlasmaOrdered By: Mick Branch on 09-17-2023 Creatinine [Mass/Vol] 0.94 mg/dL Normal 0.70-1.30 [facility] Comment on above: Performed By: #### F E and TIBC, CMP, PT, MAGDALENA, DIFF CBC #### [place] [address] [place] #### AFPTM #### [facility] , Diff and CBCon 09-17-2023 Macrocytosis Slight Normal [facility] Comment on above: Performed By: #### F E and TIBC, CMP, PT, MAGDALENA, DIFF CBC #### [place] [address] [place] #### AFPTM #### [facility] , Mean Corpuscular HGB Conc 32.2 g/dL Low 32.5-35.6 [facility] Comment on above: Performed By: #### F E and TIBC, CMP, PT, MAGDALENA, DIFF CBC #### [address] #### AFPTM #### [facility] , Microcytosis Slight Normal [facility] Comment on above: Performed By: #### F E and TIBC, CMP, PT, MAGDALENA, DIFF CBC #### [place] [address] [place] #### AFPTM #### [facility] , Ovalocytes Slight Normal [facility] Comment on above: Performed By: #### F E and TIBC, CMP, PT, MAGDALEAN, DIFF CBC #### [place] [address] [place] #### AFPTM #### [facility] , Platelet Estimate Decreased Normal Normal [facility] Comment on above: Performed By: #### F E and TIBC, CMP, PT, MAGDALENA, DIFF CBC #### [place] [address] [place] #### AFPTM #### [facility] , Platelet Morphology Normal Normal Normal [facility] Comment on above: Result Comment: PERF ORMED BY: [place] [address] PATHOLOGIST BENCH SHEAR OPERATOR DENNISE PATRICK M.D. Performed By: #### F E and TIBC, CMP, PT, MAGDALENA, DIFF CBC #### [address] #### AFPTM #### [facility] , Poikilocytosis Slight Normal [facility] Comment on above: Performed By: #### F E and TIBC, CMP, PT, MAGDALENA, DIFF CBC #### [address] #### AFPTM #### [facility] , WBC (Bld) [#/Vol] 3.2 10*3/uL Low 4.1-10.5 [facility] Comment on above: Performed By: #### F E and TIBC, CMP, PT, MAGDALENA, DIFF CBC #### [place] [address] [place] #### AFPTM #### [facility] , Eosinophils Auto (Bld) [#/Vo l]Ordered By: Mick Branch on 09-17-2023 Eosinophils (Bld) [#/Vol] N/A [facility] Eosinophils/100 WBC Auto (Bl d)Ordered By: Mick Branch on 09-17-2023 Eosinophils/100 WBC (Bld) N/A [facility] Eosinophils/100 leukocytes i n Blood by Manual countOrdered By: Mick Branch on 09-17-2023 Eosinophils/100 WBC (Bld) 4 % High 1-3 [facility] Comment on above: Performed By: #### F E and TIBC, CMP, PT, MAGDALENA, DIFF CBC #### [facility] [address] [place] [address] [place] #### AFPTM #### [facility] , Erythrocyte distribution wid th [Ratio] by Automated countOrdered By: Mick Branch on 09-17-2023 Erythrocyte distribution width (RBC) [Ratio] 17.4 % High 12.0-14.8 [facility] Comment on above: Performed By: #### F E and TIBC, CMP, PT, MAGDALENA, DIFF CBC #### [address] #### AFPTM #### [facility] , Erythrocytes [#/volume] in B lood by Automated countOrdered By: Mick Branch on 09-17-2023 RBC (Bld) [#/Vol] 4.40 10*6/uL Normal 3.90-5.[address] [facility] Comment on above: Performed By: #### F E and TIBC, CMP, PT, MAGDALENA, DIFF CBC #### [address] #### AFPTM #### [facility] , Ferritin [Mass/volume] in Se rum or PlasmaOrdered By: Mick Branch on 09-17-2023 Ferritin [Mass/Vol] 23.4 ng/mL Low 23.9-336.[address] [facility] Comment on above: Result Comment: PERF ORMED BY: [place] [address] PATHOLOGIST BENCH SHEAR OPERATOR DENNISE PATRICK M.D. Performed By: #### F E and TIBC, CMP, PT, MAGDALENA, DIFF CBC #### [place] [address] [place] #### AFPTM #### [facility] , Glucose [Mass/volume] in Ser um or PlasmaOrdered By: Mick Branch on 09-17-2023 Glucose [Mass/Vol] 78 mg/dL Normal 70-100 [facility] Comment on above: ADA recommended refe rence rangeRandom Glucose Reference Range is dependent on time and content of last meal. Glucose of more than 200 mg/dL in a nonstressed, ambulatory subject supports the diagnosis of Diabetes Mellitus. Result Comment: [place] om Glucose Reference Range is dependent on time and content of last meal. Glucose of more than 200 mg/dL in a nonstressed, ambulatory subject supports the diagnosis of Diabetes Mellitus. ADA recommended reference range Performed By: #### F E and TIBC, CMP, PT, MAGDALENA, DIFF CBC #### [facility] [address] [place] [address] [place] #### AFPTM #### [facility] , Hematocrit [Volume Fraction] of Blood by Automated countOrdered By: Mick Branch on 09-17-2023 Hematocrit (Bld) [Volume fraction] 37.4 % Low 38.8-50.0 [facility] Comment on above: Performed By: #### F E and TIBC, CMP, PT, MAGDALENA, DIFF CBC #### [facility] [address] [place] [address] [place] #### AFPTM #### [facility] , Hemoglobin [Mass/volume] in BloodOrdered By: Mick Branch on 09-17-2023 Hemoglobin (Bld) [Mass/Vol] 12.1 g/dL Low 13.0-17.0 [facility] Comment on above: Performed By: #### F E and TIBC, CMP, PT, MAGDALENA, DIFF CBC #### [facility] [address] [place] [address] [place] #### AFPTM #### [facility] , INR in Platelet poor plasma by Coagulation assayOrdered By: Mick Branch on 09-17-2023 INR Coag (PPP) [Relative time] 1.1 {INR} Normal [facility] Comment on above: INR Therapeutic Rang e A) Pre- and Peroperative OAT started two weeks before surgery. NOT HIP SURGERY: 1.5 - 2.5 HIP SURGERY: 2 - 3B) Primary and secondary prevention of venous THROMBOSIS: 2 - 3C) Active venous thrombosis, pulmonary embolismand prevention of recurrent venous thrombosis: 2 - 3D) Prevention of arterial thromboembolismincluding patients with mechanical heart valves: 3 - 4.5 Result Comment: INR Therapeutic Range A) Pre- and Peroperative OAT started two weeks before surgery. NOT HIP SURGERY: 1.5 - 2.5 HIP SURGERY: 2 - 3 B) Primary and secondary prevention of venous THROMBOSIS: 2 - 3 C) Active venous thrombosis, pulmonary embolism and prevention of recurrent venous thrombosis: 2 - 3 D) Prevention of arterial thromboembolism including patients with mechanical heart valves: 3 - 4.5 PERFORMED BY: [place] [address] PATHOLOGIST BENCH SHEAR OPERATOR DENNISE PATRICK M.D. Performed By: #### F E and TIBC, CMP, PT, MAGDALENA, DIFF CBC #### [place] [address] [place] #### AFPTM #### [facility] , Iron [Mass/volume] in Serum or PlasmaOrdered By: Mick Branch on 09-17-2023 Iron [Mass/Vol] 52 ug/dL Normal 50-212 [facility] Comment on above: Performed By: #### F E and TIBC, CMP, PT, MAGDALENA, DIFF CBC #### [address] #### AFPTM #### [facility] , Iron and TIBC Profileon 08-24 % Iron Saturation 10.5 % Low 20-50 [facility] Comment on above: Performed By: #### F E and TIBC, CMP, PT, MAGDALENA, DIFF CBC #### [facility] [address] [place] [address] [place] #### AFPTM #### [facility] , Total Iron Binding Capacity 496 ug/dL High 255-450 [facility] Comment on above: Performed By: #### F E and TIBC, CMP, PT, MAGDALENA, DIFF CBC #### [facility] [address] [place] [address] [place] #### AFPTM #### [facility] , Iron binding capacity [Mass/ volume] in Serum or PlasmaOrdered By: Mick Branch on 09-17-2023 Iron binding capacity [Mass/Vol] 496 ug/dL High 255-450 [facility] Iron saturation [Mass Fracti on] in Serum or PlasmaOrdered By: Mick Branch on 09-17-2023 Iron saturation [Mass fraction] 10.5 % Low 20-50 [facility] Leukocytes [#/volume] correc britt for nucleated erythrocytes in Blood by Automated counOrdered By: Mick Branch on 09-17-2023 WBC corrected for nucl RBC Auto (Bld) [#/Vol] 3.2 10*3/uL Low 4.1-10.5 [facility] Leukocytes [#/volume] in Blo od by Automated countOrdered By: Mick Branch on 09-17-2023 WBC (Bld) [#/Vol] 3.4 10*3/uL Low 4.1-10.5 [facility] Comment on above: Performed By: #### F E and TIBC, CMP, PT, MAGDALENA, DIFF CBC #### [facility] [address] [place] [address] [place] #### AFPTM #### [facility] , Lymphocytes Auto (Bld) [#/Vo l]Ordered By: Mick Branch on 09-17-2023 Lymphocytes (Bld) [#/Vol] N/A [facility] Lymphocytes/100 WBC Auto (Bl d)Ordered By: Mick Branch on 09-17-2023 Lymphocytes/100 WBC (Bld) N/A [facility] Lymphocytes/100 leukocytes i n Blood by Manual countOrdered By: Mick Branch on 09-17-2023 Lymphocytes/100 WBC (Bld) 25 % Normal 18-42 [facility] Comment on above: Performed By: #### F E and TIBC, CMP, PT, MAGDALENA, DIFF CBC #### [facility] [address] [place] [address] [place] #### AFPTM #### [facility] , MCH [Entitic mass] by Automa britt countOrdered By: Mick Branch on 09-17-2023 MCH (RBC) [Entitic mass] 27.4 pg Low 27.5-35.2 [facility] Comment on above: Performed By: #### F E and TIBC, CMP, PT, MAGDALENA, DIFF CBC #### [address] #### AFPTM #### [facility] , MCHC Auto (RBC) [Mass/Vol]Or dered By: Mick Branch on 09-17-2023 MCHC (RBC) [Mass/Vol] 32.2 g/dL Low 32.5-35.6 [facility] MCV [Entitic volume] by Auto mated countOrdered By: Mick Branch on 09-17-2023 MCV (RBC) [Entitic vol] 85.0 fL Normal 83.5-101 [facility] Comment on above: Performed By: #### F E and TIBC, CMP, PT, MAGDALENA, DIFF CBC #### [place] [address] [place] #### AFPTM #### [facility] , Macrocytes LM Ql (Bld)Ordere d By: Mick Branch on 09-17-2023 Macrocytes Ql (Bld) [facility] Manual blood segmented neutr ophils/100 leukocytesOrdered By: Mick Branch on 09-17-2023 Segmented neutrophils/100 WBC (Bld) 63 % Normal 50-70 [facility] Comment on above: Performed By: #### F E and TIBC, CMP, PT, MAGDALENA, DIFF CBC #### [place] [address] [place] #### AFPTM #### [facility] , Microcytes LM Ql (Bld)Ordere d By: Mick Branch on 06-25-2024 Microcytes Ql (Bld) Slight [facility] Monocytes Auto (Bld) [#/Vol] Ordered By: Mick Branch on 09-17-2023 Monocytes (Bld) [#/Vol] N/A [facility] Monocytes/100 WBC Auto (Bld) Ordered By: Mick Branch on 09-17-2023 Monocytes/100 WBC (Bld) N/A [facility] Monocytes/100 leukocytes in Blood by Manual countOrdered By: Mick Branch on 09-17-2023 Monocytes/100 WBC (Bld) 8 % Normal 2-11 [facility] Comment on above: Performed By: #### F E and TIBC, CMP, PT, MAGDALENA, DIFF CBC #### [facility] [address] #### AFPTM #### [facility] , Neutrophils Auto (Bld) [#/Vo l]Ordered By: Mick Branch on 09-17-2023 Neutrophils (Bld) [#/Vol] N/A [facility] Neutrophils/100 WBC Auto (Bl d)Ordered By: Mick Branch on 09-17-2023 Neutrophils/100 WBC (Bld) N/A [facility] No Panel InformationOrdered By: Mick Branch on 09-17-2023 Estimated GFR (CKD-EPI) > 60.0 mL/Min [facility]acy Creatinine Clearance (Chem N/A [facility] Nucleated erythrocytes [Pres ence] in Blood by Automated countOrdered By: Mick Branch on 09-17-2023 Nucleated RBC Auto Ql (Bld) N/A [facility] Ovalocyte detectionOrdered B y: Mick Branch on 09-17-2023 Ovalocytes LM Ql (Bld) Slight [facility] Peripheral white blood cell differential % bands, microscopic examOrdered By: Mick Branch on 09-17-2023 Band form neutrophils/100 WBC (Bld) 1 % Normal 0-5 [facility] Comment on above: Performed By: #### F E and TIBC, CMP, PT, MAGDALENA, DIFF CBC #### [facility] [address] [place] [address] [place] #### AFPTM #### [facility] , Platelet adequacy [Presence] in Blood by Light microscopyOrdered By: Mick Branch on 09-17-2023 Platelets LM Ql (Bld) Decreased Normal [facility] Platelet mean volume [Entiti c volume] in Blood by Automated countOrdered By: Mick Branch on 09-17-2023 Platelet mean volume (Bld) [Entitic vol] 8.9 fL Normal 6.6-10.1 [facility] Comment on above: Performed By: #### F E and TIBC, CMP, PT, MAGDALENA, DIFF CBC #### [address] #### AFPTM #### [facility] , Platelet morphology finding [Identifier] in BloodOrdered By: Mick Branch on 09-17-2023 Platelet morphology finding Nom (Bld) Normal Normal [facility] Platelets [#/volume] in Bloo d by Automated countOrdered By: Mick Branch on 09-17-2023 Platelets (Bld) [#/Vol] 112 10*3/uL Low 150-450 [facility] Comment on above: Performed By: #### F E and TIBC, CMP, PT, MAGDALENA, DIFF CBC #### [address] #### AFPTM #### [facility] , Poikilocytosis [Presence] in Blood by Light microscopyOrdered By: Mick Branch on 09-17-2023 Poikilocytosis LM Ql (Bld) Slight [facility] Potassium [Moles/volume] in Serum or PlasmaOrdered By: Mick Branch on 09-17-2023 Potassium [Moles/Vol] 4.3 mmol/L Normal 3.5-5.1 [facility] Comment on above: Performed By: #### F E and TIBC, CMP, PT, MAGDALENA, DIFF CBC #### [place] [address] [place] #### AFPTM #### [facility] , Protein [Mass/volume] in Ser um or PlasmaOrdered By: Mick Branch on 09-17-2023 Protein [Mass/Vol] 6.6 g/dL Normal 6.4-8.9 [facility] Comment on above: Performed By: #### F E and TIBC, CMP, PT, MAGDALENA, DIFF CBC #### [place] [address] [place] #### AFPTM #### [facility] , Prothrombin time (PT)Ordered By: Mick Branch on 09-17-2023 PT Coag (PPP) [Time] 13.1 s High 9.0-12.9 [facility] Comment on above: A hematocrit value g reater than 55% may lead to inaccurate results in coagulation testing. Patients having hematocrit values >55% require a special collection tube for coagulation studies. Please contact the laboratory at [phone] for redraw instructions. Result Comment: A he matocrit value greater than 55% may lead to inaccurate results in coagulation testing. Patients having hematocrit values >55% require a special collection tube for coagulation studies. Please contact the laboratory at [phone] for redraw instructions. Performed By: #### F E and TIBC, CMP, PT, MAGDALENA, DIFF CBC #### [place] [address] [place] #### AFPTM #### [facility] , RBC morphologyOrdered By: Kimberly Branch on 09-17-2023 RBC morphology finding Nom (Bld) N/A [facility] Serum globulin measurement b y calculation (mass/volume)Ordered By: Mick Branch on 09-17-2023 Globulin (S) [Mass/Vol] 2.7 g/dL Normal [facility] Comment on above: Performed By: #### F E and TIBC, CMP, PT, MAGDALENA, DIFF CBC #### [place] [address] [place] #### AFPTM #### [facility] , Serum or plasma albumin/glob ulin mass ratioOrdered By: Mick Branch on 09-17-2023 Albumin/Globulin [Mass ratio] 1.4 {ratio} Normal [facility] Comment on above: Performed By: #### F E and TIBC, CMP, PT, MAGDALENA, DIFF CBC #### [place] [address] [place] #### AFPTM #### [facility] , Serum or plasma [id number] protein tumor marker measurement (mass/volume)Ordered By: Mick Branch on 09-17-2023 AFP.tumor marker [Mass/Vol] 3.0 ng/mL 0.0-8.4 [facility] Comment on above: [place] [place] ectrochemiluminescence Immunoassay(ECLIA)Values obtained with different assay methods or kits cannotbe used interchangeably. Results cannot be interpreted asabsolute evidence of the presence or absence of malignantdisease.This test is not interpretable in females.Performed at: [facility] [place] [id number] Director: Charlie Klein PhD, Phone: [phone] Serum or plasma anion gap de terminationOrdered By: Mick Branch on 09-17-2023 Anion gap [Moles/Vol] 8.8 mmol/L Normal 6.0-15.0 [facility] Comment on above: Performed By: #### F E and TIBC, CMP, PT, MAGDALENA, DIFF CBC #### [place] [address] [place] #### AFPTM #### [facility] , Sodium [Moles/volume] in Ser um or PlasmaOrdered By: Mick Branch on 09-17-2023 Sodium [Moles/Vol] 143 mmol/L Normal 136-145 [facility] Comment on above: Performed By: #### F E and TIBC, CMP, PT, MAGDALENA, DIFF CBC #### [place] [address] [place] #### AFPTM #### [facility] , Transferrin [Mass/volume] in Serum or PlasmaOrdered By: Mick Branch on 09-17-2023 Transferrin [Mass/Vol] 354 mg/dL Normal 203-362 [facility] Comment on above: Performed By: #### F E and TIBC, CMP, PT, MAGDALENA, DIFF CBC #### [place] [address] [place] #### AFPTM #### [facility] , Urea nitrogen [Mass/volume] in Serum or PlasmaOrdered By: Mick Branch on 09-17-2023 Urea nitrogen [Mass/Vol] 20 mg/dL Normal 10-16 [facility] Comment on above: Performed By: #### F E and TIBC, CMP, PT, MAGDALENA, DIFF CBC #### [address] #### AFPTM #### [facility] , ECG 12 Leadon 06-20-2023 Sinus rhythm, rightw stephanie axis, bigeminal PVCs, anteroseptal infarction pattern age indeterminant, abnormal ECG [facility] Work Phone: US spleenon 06-05-2023 US spleen [facility] [place] [address] [place] [address] Ultrasound Report Signed Patient: Pankaj Payne MR#: [id number] : 1945 Acct:[id number] Age/Sex: 77 / M ADM Date: 06/05/23 Loc: Room: Type: [facility] Attending Dr: Frantz Conley II, MD Ordering [...] Claros Jr., D.OKita06/05/2023 12:06 PM Dictation Location: [place] [address] Tech: Demi Weinberg Transcribed By: [facility] 06/05/231205 Dictated By: Kartik Claros Jr, DO 06/05/231205 Signed By: 06/05/231205 [facility] 04-30-2023 L Specimen: [id number] Received: 05/01/23 Status: SOUT Req Num: [id number] Spec Type: Impression Subm Dr: Markus Renteria DO Tissues: PATHPER Procedures: PATHREVIEW Age/ Patient Sex Location Account Attending Physician Pankaj Payne 77/M [facility] [id number] Jose Manning MD SPEC NUM: [id number] RECD: 05/01/23 STATUS: SOUT REQ NUM: [id number] BIBI: 04/30/[address]: Markus Renteria DO ENTERED: 05/01/[address]: Yue Velasco MD SPEC TYPE: Impression DEPT: MADELEINE Abdi ENTERED BY: [id number] RECV BY: [id number] ORDERED: PATHREVIEW ORDERED: PATHREVIEW Pathologist Review Abnormal [...] continues close laboratory follow-ups as appropriate CPT: 58432 Specimen: [id number] Received: 05/01/23 Status: GIOVANA Toney Num: [id number] Spec Type: Impression Subm Dr: Markus Renteria DO Tissues: PATHPER Procedures: PATHREVIEW Patient: PaynePankaj [id number] (Continued) Specimen: [id number] Received: 05/01/23 (Continued) Signed (signature on file) Naif Arthur MD 05/02/23 0954 Specimen: [id number] Received: 05/01/23 Status: GIOVANA Toney Num: [id number] Spec Type: Impression Subm Dr: Markus Renteria DO Tissues: PATHPER Procedures: PATHREVIEW Patient: PaynePankaj [id number] (Continued) Specimen: [id number] Received: 05/01/23 (Continued) CBC No results available. Specimen: [id number] Received: 05/01/23 Status: GIOVANA Toney Num: [id number] Spec Type: Impression Subm Dr: Markus Renteria, Tissues: PATHPER Procedures: PATHREVIEW Patient: Pankaj Payne [id number] (Continued) Signed (signature on file) Chin-Hunter Arthur MD 05/02/23 0954 Normal [facility] 36on 04-05-2023 36 Approving, but needs appt for additional refills. Normal [facility] Documentationon 01-17-2023 Documentation [id number] Pankaj Payne 1945 [facility] Provider Department Center 01/17/[address] No family history on file Normal [facility] Office Visiton 09-17-2022 Follow-up visit [id number] Pankaj Payne 1945 [facility] Center 09/17/2022 ARABELLA SPANN ALEXANDRA Reina No family history on file Level of Service:74275 MA OFFICE/OUTPATIENT ESTABLISHED LOW MDM 20-29 MIN Normal [facility] Albumin [Mass/volume] in Ser um or PlasmaOrdered By: Zoila Castorena on 08-08-2022 Albumin [Mass/Vol] 3.0 g/dL 2.9-4.4 [facility] Folate [Mass/volume] in Seru m or PlasmaOrdered By: Zoila Castorena on 08-08-2022 Folate [Mass/Vol] 40.0 ng/mL >5.9 [facility] Comment on above: Folate reference ran ge: >5.9 ng/mlThe WHO technical consultation on folate and vitamin [id number] has determined that folate concentrations lessthan 4 ng/ml are considered deficient. Haptoglobin [Mass/volume] in Serum or PlasmaOrdered By: Zoila Castorena on 08-08-2022 Haptoglobin [Mass/Vol] 58 mg/dL 44-215 [facility] Lactate dehydrogenase [Enzym atic activity/volume] in Serum or Plasma by Lactate to pyOrdered By: Zoila Castorena on 08-08-2022 LDH Lactate to pyruvate reaction [Catalytic activity/Vol] 221 U/L 140-271 [facility] No Panel InformationOrdered By: Zoila Catsorena on 08-08-2022 Protein Electrophoresis M-Jose Not observed g/dL Not Observed [facility] Protein Electrophoresis Note See comment . [facility] Comment on above: Protein electrophore sis scan will follow via computer,mail, or boxing instructor delivery.Performed at: [address] [id number] Director: Charlie Klein PhD, Phone: [phone] Protein [Mass/volume] in Ser um or PlasmaOrdered By: Zoila Castorena on 08-08-2022 Protein [Mass/Vol] 6.0 g/dL 6.0-8.5 [facility] Serum globulin measurement ( mass/volume)Ordered By: Zoila Castorena on 08-08-2022 Globulin (S) [Mass/Vol] 3.0 g/dL 2.2-3.9 [facility] Serum or plasma albumin/glob ulin mass ratioOrdered By: Zoila Castorena on 08-08-2022 Albumin/Globulin [Mass ratio] 1.0 {ratio} 0.7-1.7 [facility] Serum or plasma alpha 1 glob ulin measurement by electrophoresis (mass/volume)Ordered By: Zoila Castorena on 08-08-2022 Alpha 1 globulin Elph [Mass/Vol] 0.2 g/dL 0.0-0.4 [facility] Serum or plasma alpha 2 glob ulin measurement by electrophoresis (mass/volume)Ordered By: Zoila Castorena on 08-08-2022 Alpha 2 globulin Elph [Mass/Vol] 0.7 g/dL 0.4-1.0 [facility] Serum or plasma beta globuli n measurement by electrophoresis (mass/volume)Ordered By: Zoila Castorena on 08-08-2022 Beta globulin Elph [Mass/Vol] 1.2 g/dL 0.7-1.3 [facility] Serum or plasma gamma globul in measurement by electrophoresis (mass/volume)Ordered By: Zoila Castorena on 08-08-2022 Gamma globulin Elph [Mass/Vol] 1.0 g/dL 0.4-1.8 [facility] Vitamin B12 ser/plasOrdered By: Zoila Castorena on 08-08-2022 Cobalamin (Vitamin B12) [Mass/Vol] 481 pg/mL 180-914 [facility] ECHOCARDIO M/2D COMPLETEon 0 11-08-2021 ECHOCARDIO M/2D COMPLETE Patient: PANKAJ PAYNE Exam Date: 11/08/2021 : 1945 Gender:M Ordering : DR KARL MENON M.D. Admission #: [id number] Family : DR FRANTZ CONLEY M.D. Order #: [id number] CLICK HERE TO VIEW EXAM ECHOCARDIOGRAM REPORT [...] Menon M.D. on 11/08/2021 at 16:55 Normal [facility] Creatinine and Glomerular fi ltration rate.predicted panel (S/P/Bld)Ordered By: Frantz Conley on 10-10-2021 Creatinine [Mass/Vol] 1.11 mg/dL 0.64-1.27 [facility] Estimated glomerular filtrat ion rate (GFR) non- AmericanOrdered By: Frantz Conley on 10-10-2021 GFR/1.73 sq M.predicted among non-blacks MDRD (S/P/Bld) [Vol rate/Area] > 60 mL/Min [facility] No Panel InformationOrdered By: Frantz Conley on 10-10-2021 Estimated GFR () > 60 mL/Min [facility] Comment on above: GFR estimated refere nce range: According to KDOQI guidelines, <60 ml/min/1.73m2 is sufficient to diagnose a patient with chronic kidney disease. Pharmacy Creatinine Clearance (Chem N/A [facility] Serum or plasma urea nitroge n measurement (mass/volume)Ordered By: Frantz Conley on 10-10-2021 Urea nitrogen [Mass/Vol] 16 mg/dL 12-15 [facility] COVID-19 Positive/NegativeOr dered By: Mick Branch on 09-15-2021 SARS-CoV-2 (COVID-19) N gene GÓMEZ+probe Ql (Resp) Negative Negative [facility] Comment on above: Testing for SARS-CoV -2 by RT-PCR This test was developed and its performance characteristics determined by [employer] and validated at the [facility]. This test has not been FDA cleared [...] Basic Metab w/rfx MGon 08-17 (cont.) Normal [facility] Comment on above: Result Comment: Aver age GFR for 70 or more years old: 75 mL/min/1.73sq m Chronic Kidney Disease: <60 mL/min/1.73sq m Kidney failure: <15 mL/min/1.73sq m eGFR calculated using average adult body mass. Additional eGFR calculator available at: http://www.[employer] [place].com/multiple_crcl_2012.htm Performed By: #### C DP, BMPX #### [facility] e(ye)BRAIN [address] [place] [address] Thermoforming Operator: Tony Yanez MD Anion gap [Moles/Vol] 9 mmol/L Normal 9-17 [facility] Comment on above: Performed By: #### C DP, BMPX #### [facility] e(ye)BRAIN [address] [place] [address] Thermoforming Operator: Tony Yanez MD Calcium [Mass/Vol] 9.0 mg/dL Normal 8.6-10.4 [facility] Comment on above: Performed By: #### C DP, BMPX #### [facility] e(ye)BRAIN [address] [place] [address] Thermoforming Operator: Tony Yanez MD Chloride [Moles/Vol] 107 mmol/L Normal 98-107 [facility] Comment on above: Performed By: #### C DP, BMPX #### [facility] e(ye)BRAIN [address] [place] [address] Thermoforming Operator: Tony Yanez MD CO2 [Moles/Vol] 23 mmol/L Normal 20-31 [facility] Comment on above: Performed By: #### C DP, BMPX #### [facility] e(ye)BRAIN [address] [place] [address] Thermoforming Operator: Tony Yanez MD Creatinine [Mass/Vol] 0.83 mg/dL Normal 0.70-1.20 [facility] Comment on above: Performed By: #### C DP, BMPX #### [facility] [address] [place] [address] Thermoforming Operator: Tony Yanez MD GFR, Amer >60 Normal >60 [facility] Comment on above: Performed By: #### C DP, BMPX #### [facility] [address] [place] [address] Thermoforming Operator: Tony Yanez MD GFR,non Amer >60 Normal >60 [facility] Comment on above: Performed By: #### C DP, BMPX #### [facility] e(ye)BRAIN [address] [place] [address] Thermoforming Operator: Tony Yanez MD Glucose [Mass/Vol] 91 mg/dL Normal 70-99 [facility] Comment on above: Performed By: #### C DP, BMPX #### [facility] e(ye)BRAIN [address] [place] [address] Thermoforming Operator: Tony Yanez MD Potassium [Moles/Vol] 4.3 mmol/L Normal 3.7-5.3 [facility] Comment on above: Performed By: #### C DP, BMPX #### [facility] e(ye)BRAIN [address] [place] [address] Thermoforming Operator: Tony Yanez MD Sodium [Moles/Vol] 139 mmol/L Normal 135-144 [facility] Comment on above: Performed By: #### C DP, BMPX #### [facility] e(ye)BRAIN [address] [place] [address] Thermoforming Operator: Tony Yanez MD Urea nitrogen [Mass/Vol] 17 mg/dL Normal 8-23 [facility] Comment on above: Performed By: #### C DP, BMPX #### [facility] e(ye)BRAIN [address] [place] [address]1974 Thermoforming Operator: Tony Yanez MD Basic Metabolic Panel w/ Ref nehemias to MGon 08-17-2021 Anion gap [Moles/Vol] 9 mmol/L 9 - 17 mmol/L [facility] Calcium [Mass/Vol] 9.0 mg/dL 8.6 - 10. 4 mg/dL [facility] Chloride [Moles/Vol] 107 mmol/L 98 - 10 7 mmol/L [facility] CO2 [Moles/Vol] 23 mmol/L 20 - 31 mmol/L [facility] Creatinine [Mass/Vol] 0.83 mg/dL 0.70 - 1.20 mg/dL [facility] GFR >60 >60 mL/min [facility] GFR Non- >60 >60 mL/min [facility] GFR/1.73 sq M.predicted MDRD (S/P/Bld) [Vol rate/Area] [facility] Comment on above: Average GFR for 70 o r more years old: 75 mL/min/1.73sq m Chronic Kidney Disease: <60 mL/min/1.73sq m Kidney failure: <15 mL/min/1.73sq m eGFR calculated using average adult body mass. Additional eGFR calculator available at: http://www.LISNR/multiple_crcl_2012.htm Glucose [Mass/Vol] 91 mg/dL 70 - 99 mg/dL [facility] Potassium [Moles/Vol] 4.3 mmol/L 3.7 - 5.3 mmol/L [facility] Sodium [Moles/Vol] 139 mmol/L 135 - 144 mmol/L [facility] Urea nitrogen (BldV) [Mass/Vol] 17 mg/dL 8 - 23 mg/dL [facility] CBC with Auto Differentialon 08-17-2021 Absolute Eos # 0.11 [facility] Absolute Immature Granulocyte <0.03 [facility] Absolute Lymph # 1.10 [facility] Absolute [place] # 0.53 [facility] Basophils (Bld) [#/Vol] 0.03 10*3/uL [facility] Basophils/100 WBC (Bld) 1 % 0 - 2 % [facility] Eosinophils/100 WBC (Bld) 2 % 1 - 4 % [facility] Hematocrit (Bld) [Volume fraction] 36.2 % Low 40.7 - 50.3 % [facility] Hemoglobin.gastrointes tinal spec 1 Ql (Stl) 12.1 g/dL Low 13.0 - 17.0 g/dL [facility] Immature granulocytes/100 WBC (Bld) 0 % 0 [facility] Interpretation and review of laboratory results Abnormal [facility] Lymphocytes/100 WBC (Bld) 22 % Low 24 - 43 % [facility] MCH (RBC) [Entitic mass] 31.1 pg 25.2 - 33.5 pg [facility] MCHC (RBC) [Mass/Vol] 33.4 g/dL 28.4 - 34.8 g/dL [facility] MCV (RBC) [Entitic vol] 93.1 fL 82.6 - 102.9 fL [facility] Monocytes/100 WBC (Bld) 11 % 3 - 12 % [facility] NRBC Automated 0.0 0.0 per 100 WBC [facility] Platelet distribution width (Bld) [Ratio] 13.2 % 11.8 - 14.4 % [facility] Platelet mean volume (Bld) [Entitic vol] 11.2 fL 8.1 - 13.5 fL [facility] Platelets (Bld) [#/Vol] 94 10*3/uL Low [facility] RBC (Bld) [#/Vol] 3.89 10*6/uL Low 4.21 - 5.77 m/uL [facility] Segmented neutrophils/100 WBC (Bld) 64 % 36 - 65 % [facility] Segs Absolute 3.14 [facility] WBC (Bld) [#/Vol] 4.9 10*3/uL [facility] CBC with Diffon 08-17-2021 Abs. Basophil 0.03 k/uL Normal 0.00-0.20 [facility] Comment on above: Performed By: #### C DP BMPX #### [employer] [address] [place] [id number] Thermoforming Operator: Tony Yanez MD Abs.Imm.Granulocyte <0.03 Normal 0.00-0.30 [facility] Comment on above: Performed By: #### C DP, BMPX #### [address] [address] Thermoforming Operator: Tony Yanez MD Abs.Neutrophil (Seg) 3.14 k/uL Normal 1.50-8.10 [facility] Comment on above: Performed By: #### C DP, BMPX #### [address] [address] Thermoforming Operator: Tony Yanez MD Basophils/100 WBC (Bld) 1 % Normal 0-2 [facility] Comment on above: Performed By: #### C DP, BMPX #### [address] [address] Thermoforming Operator: Tony Yanez MD Eosinophils (Bld) [#/Vol] 0.11 10*3/uL Normal 0.00-0.44 [facility] Comment on above: Performed By: #### C DP, BMPX #### [place] [address] [employer] Operator: Tony Yanez MD Eosinophils/100 WBC (Bld) 2 % Normal 1-4 [facility] Comment on above: Performed By: #### C DP, BMPX #### [address] [address] Thermoforming Operator: Tony Yanez MD Erythrocyte distribution width (RBC) [Ratio] 13.2 % Normal 11.8-14.4 [facility] Comment on above: Performed By: #### C DP, BMPX #### [address] [address] Thermoforming Operator: Tony Yanez MD Hematocrit (Bld) [Volume fraction] 36.2 % Low 40.7-50.3 [facility] Comment on above: Performed By: #### C DP, BMPX #### [address] [address] Thermoforming Operator: Tony Yanez MD Hemoglobin (Bld) [Mass/Vol] 12.1 g/dL Low 13.0-17.0 [facility] Comment on above: Performed By: #### C DP, BMPX #### [address] [address] Thermoforming Operator: Tony Yanez MD Immature granulocytes/100 WBC (Bld) 0 % Normal 0 [facility] Comment on above: Performed By: #### C DP, BMPX #### [address] [address] Thermoforming Operator: Tony Yanez MD Lymphocytes (Bld) [#/Vol] 1.10 10*3/uL Normal 1.10-3.70 [facility] Comment on above: Performed By: #### C DP, BMPX #### [address] [address] Thermoforming Operator: Tony Yanez MD Lymphocytes/100 WBC (Bld) 22 % Low 24-43 [facility] Comment on above: Performed By: #### C DP, BMPX #### [address] [address] Thermoforming Operator: Tony Yanez MD MCH (RBC) [Entitic mass] 31.1 pg Normal 25.2-33.5 [facility] Comment on above: Performed By: #### C DP, BMPX #### [address] [address] Thermoforming Operator: Tony Yanez MD MCHC (RBC) [Mass/Vol] 33.4 g/dL Normal 28.4-34.8 [facility] Comment on above: Performed By: #### C DP, BMPX #### [address] [address] Thermoforming Operator: Tony Yanez MD MCV (RBC) [Entitic vol] 93.1 fL Normal 82.6-102.9 [facility] Comment on above: Performed By: #### C DP, BMPX #### [address] [address] Thermoforming Operator: Tony Yanez MD Monocytes (Bld) [#/Vol] 0.53 10*3/uL Normal 0.10-1.20 [facility] Comment on above: Performed By: #### C DP, BMPX #### [address] [address] Thermoforming Operator: Tony Yanez MD Monocytes/100 WBC (Bld) 11 % Normal 3-12 [facility] Comment on above: Performed By: #### C DP, BMPX #### [address] [address] Thermoforming Operator: Tony Yanez MD Neutrophil (Seg) 64 % Normal 36-65 [facility] Comment on above: Performed By: #### C DP, BMPX #### [address] [address] Thermoforming Operator: Tony Yanez MD NRBC Automated 0.0 per 100 WBC Normal 0.0 [facility] Comment on above: Performed By: #### C DP, BMPX #### [address] [address] Thermoforming Operator: Tony Yanez MD Platelet mean volume (Bld) [Entitic vol] 11.2 fL Normal 8.1-13.5 [facility] Comment on above: Performed By: #### C DP, BMPX #### [address] [address] Thermoforming Operator: Tony Yanez MD Platelets (Bld) [#/Vol] 94 10*3/uL Low 138-453 [facility] Comment on above: Performed By: #### C DP, BMPX #### [id number] [place], [place] [id number] Thermoforming Operator: Tony Yanez MD RBC (Bld) [#/Vol] 3.89 10*6/uL Low 4.21-5.77 [facility] Comment on above: Performed By: #### C DP, BMPX #### [facility] [address] [place], [place] [phone] Thermoforming Operator: Tony Yanez MD WBC (Bld) [#/Vol] 4.9 10*3/uL Normal 3.5-11.3 [facility] Comment on above: Performed By: #### C DP, BMPX #### [facility] [address] [place], [place] [address] Thermoforming Operator: Tony Yanez MD CT FACIAL BONES WO [...] SYSTEM PROVIDED HISTORY: 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 Results should be used as an adjunct to nosocomial control efforts to identify patients needing enhanced precautions. The test is not intended to identify patients with staphylococcal infections. Results should not be used to guide or monitor treatment for MRSA infections. Specimen Description .NASAL SWAB [facility] MRSA, DNA, Nasalon MRSA, DNA, Nasal Negative Normal NEG [facility] Comment on above: Result Comment: NEGA TIVE: MRSA DNA not detected by nucleic acid amplification. Results should be used as an adjunct to nosocomial control efforts to identify patients needing enhanced precautions. The test is not intended to identify patients with staphylococcal infections. Results should not be used to guide or monitor treatment for MRSA infections. Performed By: #### M RSANO #### [facility] e(ye)BRAIN [address] [place] [id number] Thermo[employer] Operator: Tony Yanez MD Specimen Description .NASAL SWAB Normal [facility] Comment on above: Performed By: #### M RSANO #### [facility] [address] [place] [address] Thermoforming Operator: Tony Yanez MD CBC AUTO DIFFon 08-16-2021 BASO # 0.0 103/ul Normal 0.0-0.1 [facility] Comment on above: Performed By: #### C VDTBH #### [facility] [address] [place], [place] [address] Dr. Natalya Arthur Basophils/100 WBC (Bld) 0.6 % Normal 0.2-2.0 [facility] Comment on above: Performed By: #### C VDTBH #### [facility] [address] [place] [address] Dr. Natalya Arthur EO # 0.1 103/ul Normal 0.0-0.[address] [facility] Comment on above: Performed By: #### C VDTBH #### [facility] [address] [place] [address] Dr. Natalya Arthur Eosinophils/100 WBC (Bld) 1.9 % Normal 0.9-7.[address] [facility] Comment on above: Performed By: #### C VDTBH #### [facility] [address] [place] [address] Dr. Natalya Arthur Erythrocyte distribution width (RBC) [Ratio] 13.1 % Normal 11.0-15.0 [facility] Comment on above: Performed By: #### C VDTBH #### [facility] [address] [place] [address] Dr. Natalya Arthur Hematocrit (Bld) [Volume fraction] 38.5 % Critically low 42.0-54.0 [facility] Comment on above: Performed By: #### C VDTBH #### [facility] [address] [place] [address] Dr. Natalya Arthur Hemoglobin (Bld) [Mass/Vol] 12.7 g/dL Critically low 14.0-18.0 [facility] Comment on above: Performed By: #### C VDTBH #### [facility] [address] [place] [address] Dr. Natalya Arthur IG # 0.03 10e3/ul Normal 0.00-0.[address] [facility] Comment on above: Performed By: #### C VDTBH #### [facility] [address] [place] [address] Dr. Natalya Arthur IG % 0.6 % Critically high 0.0-0.5 [facility] Comment on above: Performed By: #### C VDTBH #### [facility] [address] [place] [address] Dr. Natalya Arthur LYMPH # 0.8 103/ul Critically low 1.2-3.8 [facility] Comment on above: Performed By: #### C VDTBH #### [facility] [address] [place] [address] Dr. Natalya Arthur Lymphocytes/100 WBC (Bld) 15.3 % Critically low 20.5-60.0 [facility] Comment on above: Performed By: #### C VDTBH #### [facility] [address] [place] [address] Dr. Natalya Arthur MANUAL DIFF REQ NO Normal [facility] Comment on above: Performed By: #### C VDTBH #### [facility] [address] [place] [address] Dr. Natalya Arthur MCH (RBC) [Entitic mass] 31.0 pg Normal 25.9-34.0 [facility] Comment on above: Performed By: #### C VDTBH #### [facility] [address] [place] [address] Dr. Natalya Arthur MCHC (RBC) [Mass/Vol] 33.0 g/dL Normal 29.9-35.2 [facility] Comment on above: Performed By: #### C VDTBH #### [facility] [address] [place] [address] Dr. Natalya Arthur MCV (RBC) [Entitic vol] 93.9 fL Normal 80.0-94.0 [facility] Comment on above: Performed By: #### C VDTBH #### [facility] [address] [place] [address] Dr. Natalya Arthur MONO # 0.4 103/ul Normal 0.3-0.[address] [facility] Comment on above: Performed By: #### C VDTBH #### [facility] [address] [place] [address] Dr. Natalya Arthur Monocytes/100 WBC (Bld) 8.0 % Normal 1.7-12.0 [facility] Comment on above: Performed By: #### C VDTBH #### [facility] [address] [place] [address] Dr. Natalya Arthur NEUT # 3.8 103/ul Normal 1.4-6.[address] [facility] Comment on above: Performed By: #### C VDTBH #### [facility] [address] [place] [address] [address] Natalya Arthur Neutrophils/100 WBC (Bld) 73.6 % Normal 43.0-75.0 [facility] Comment on above: Performed By: #### C VDTBH #### [facility] [address] [place] [address] [address] Natalya Arthur Platelet mean volume (Bld) [Entitic vol] 10.8 fL Normal 9.5-13.5 [facility] Comment on above: Performed By: #### C VDTBH #### [facility] [address] [place] [address] [address] Natalya Arthur PLT 100 103/ul Critically low 150-450 [facility] Comment on above: Performed By: #### C VDTBH #### [facility] [address] [place] [address] [address] Natalya Arthur RBC 4.10 106/ul Critically low 4.70-6.10 [facility] Comment on above: Performed By: #### C VDTBH #### [facility] [address] [id number] Natalya Arthur WBC 5.2 103/ul Normal 4.0-11.0 [facility] Comment on above: Performed By: #### C VDTBH #### [facility] [address] [place] [address] CSPINE WO CONon [...] ARTHUR LÓPEZ Date: 2021-08-16 17:[address] [facility] CT FACIAL BONES WO CONTRASTo n 08-16-2021 No acute facial frac ture. Soft tissue swelling and ecchymosis of the left face and scalp. 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 [facility] Augustin Hodges MD - 08/16/2021 EXAMINATION: CT OF THE [...] SYSTEM PROVIDED HISTORY: Impact with object riding computer applications instructor TECHNOLOGIST PROVIDED HISTORY: Impact with object riding computer applications instructor Decision Support Exception - unselect if not [...] ecchymosis of the left face and scalp. [employer] Work Phone: CT FACIAL BONES WO CONTRASTO rdered By: Augustin Hodges on 08-16-2021 [email or web address] Phone: CT HEAD WO CONon 08-16-2021 CT HEAD WO CON CT head without cont rast CLINICAL: UNSPECIFIED INJURY OF HEAD, INITIAL ENCOUNTER. [...] by: SUKH CROFT Date: 2021-08-16 15:37 Normal [facility] CT HEAD WO CONTRASTon 2021 CT HEAD [...] Hardeep Godwin MD 08/16/21 Final result Normal [facility] Minimal left frontal subarachnoid hemorrhage in 1 of the sulci. No evidence of extra-axial collections. Prominent left frontal and parietal scalp swelling/hemorrhage. The findings were sent to the Radiology Results Communication Center at 9:22 pm on 08/16/2021 to be communicated to a licensed caregiver. [facility] EXAMINATION: CT OF THE HEAD WITHOUT CONTRAST [...] TISSUES/SKULL: There is left frontoparietal scalp swelling/hemorrhage. [facility] Hardeep Godwin MD - 08/16/2021 EXAMINATION: CT OF THE [...] to be communicated to a licensed caregiver. [email or web address] Phone: CT HEAD WO CONTRASTOrdered B y: Hardeep Godwin on 08-16-2021 [email or web address] Phone: Covid-19 PCR ([facility])on 07-24 SARS-CoV-2 (COVID-19) RNA GÓMEZ+probe Ql (Unsp spec) Not detected Normal NOT DETECTED [facility] Comment on above: Result Comment: This test is not yet approved or cleared by the [place] FDA. When there are no FDA-approved or cleared tests available, and other criteria are met, FDA can make tests available under an emergency access mechanism called an Emergency Use Authorization (EUA). The EUA for this test is supported by the Carrier of Health and Human Service's (HHS's) declaration [...] consistent with SARS-CoV-2. Performed By: #### [facility] #### [facility] [address] [place] [address] Dr. Natalya Arthur No Panel Informationon 08-16 Radiology Study observation (narrative) [facility] [employer] Work Phone: PROF CHEM 8 (BAS METB)on Anion gap [Moles/Vol] 13.6 mmol/L Normal [facility] Comment on above: Performed By: #### C VDTBH #### [facility] [address] [place] [address] Dr. Natalya Arthur Calcium [Mass/Vol] 9.0 mg/dL Normal 8.5-10.1 [facility] Comment on above: Performed By: #### C VDTBH #### [facility] [address] [place] [address] [address] Natalya Arthur Chloride [Moles/Vol] 107 mmol/L Normal 98-107 [facility] Comment on above: Performed By: #### C VDTBH #### [facility] [address] [place] [address] Dr. Natalya Arthur CO2 [Moles/Vol] 24.4 mmol/L Normal 21.0-32.0 [facility] Comment on above: Performed By: #### C VDTBH #### [facility] [address] [place] [address] Dr. Natalya Arthur Creatinine [Mass/Vol] 1.09 mg/dL Normal 0.70-1.30 [facility] Comment on above: Performed By: #### C VDTBH #### [facility] [address] [place] [address] Dr. Natalya Arthur EGFR-AF [place]TH [place]OREAN >60 Normal >=60 [facility] Comment on above: Performed By: #### C VDTBH #### [facility] [address] [place] [address] [address] Natalya Arthur EGFR-NON AF [place]TH [place]OREAN >60 Normal >=60 [facility] Comment on above: Performed By: #### C VDTBH #### [facility] [address] [place] [address] Dr. Natalya Arthur Glucose [Mass/Vol] 111 mg/dL Critically high 74-106 [facility] Comment on above: Performed By: #### C VDTBH #### [facility] [address] [place] [address] [address] Natalya Arthur Potassium [Moles/Vol] 4.0 mmol/L Normal 3.5-5.1 [facility] Comment on above: Performed By: #### C VDTBH #### [facility] [address] [place] [address] Dr. Natalya Arthur Sodium [Moles/Vol] 141 mmol/L Normal 136-145 [facility] Comment on above: Performed By: #### C VDTBH #### [facility] [address] [place] [address] Dr. Natalya Arthur Urea nitrogen [Mass/Vol] 21.0 mg/dL Critically high 7.0-18.0 [facility] Comment on above: Performed By: #### C VDTBH #### [facility] [address] [place] [address] Dr. Natalya Arthur Urea nitrogen/Creatinine [Mass ratio] 19.3 mg/mg Normal [facility] Comment on above: Performed By: #### C VDTBH #### [facility] [address] [place] [address] Dr. Natalya Arthur PROTIMEon 08-16-2021 INR Coag (PPP) [Relative time] 1.12 {INR} Normal [facility] Comment on above: Performed By: #### F ETIBC, FERR #### [facility] [address] [place] [address] Dr. Natalya Arthur INR GUIDELINES SEE BELOW Normal [facility] Comment on above: Result Comment: REFUGIO RED INR: 2.0 - 3.0 CONDITIONS NOT LISTED BELOW 2.5 - 3.5 FOR PROSTHETIC HEART VALVE REPLACEMENT 2.5 - 3.5 RECURRENT THROMBOSIS Performed By: #### F ETIBC, FERR #### [facility] [address] [place] [address] Dr. Natalya Arthur PT Coag (PPP) [Time] 12.0 s Critically high 9.0-11.6 [facility] Comment on above: Performed By: #### F ETIBC, FERR #### [facility] [address] [place] [address] Dr. Natalya Arthur PTTon 08-16-2021 aPTT Coag (Bld) [Time] 28.6 s Normal 22.3-36.2 [facility] Comment on above: Performed By: #### F ETIBC, FERR #### [facility] [address] [place] [address] Dr. Natalya Arthur [id number] 2021 [id number], Serum 125 mg/dL Normal 101-187 [facility] Comment on above: Performed By: #### A LPHA-1 #### [facility] [address] [place] [address] Dr. Natalya Arthur BETHANIE EIA W/REFLEX 5 BIOMARKER Son 07-13-2021 BETHANIE Direct Negative Normal Negative [facility] Comment on above: Performed By: #### C VDTBH #### [facility] [address] [place] [address] Dr. Natalya Arthur CERULOPLASMINon 07-13-2021 Ceruloplasmin 19.0 mg/dL Normal 16.0-31.0 [facility] Comment on above: Performed By: #### C EUROPL #### [facility] [address] [place] [address] Dr. Natalya Arthur SMOOTH MUSCLE ANTIBODYon Actin (Smooth Muscle) Antibody 25 Units Critically high 0-19 [facility] Comment on above: Result Comment: Nega tive 0 - 19 Weak positive 20 - 30 Moderate to strong positive >30 . Actin Antibodies are found in 52-85% of patients with autoimmune hepatitis or chronic active hepatitis and in 22% of patients with primary biliary cirrhosis. Performed By: #### C VDTBH #### [facility] [address] [place] [address] Dr. Natalya Arthur CBC AUTO DIFFon 07-12-2021 BASO # 0.0 103/ul Normal 0.0-0.1 [facility] Comment on above: Performed By: #### F ETIBC, FERR #### [facility] [address] [place] [address] Dr. Natalya Arthur Basophils/100 WBC (Bld) 0.4 % Normal 0.2-2.0 [facility] Comment on above: Performed By: #### F ETIBC, FERR #### [facility] [address] [place] [address] Dr. Natalya Arthur EO # 0.2 103/ul Normal 0.0-0.[address] [facility] Comment on above: Performed By: #### F ETIBC, FERR #### [facility] [address] [place] [address] Dr. Natalya Arthur Eosinophils/100 WBC (Bld) 4.0 % Normal 0.9-7.[address] [facility] Comment on above: Performed By: #### F ETIBC, FERR #### [facility] [address] [place] [address] Dr. Natalya Arthur Erythrocyte distribution width (RBC) [Ratio] 13.8 % Normal 11.0-15.0 [facility] Comment on above: Performed By: #### F ETIBC, FERR #### [facility] [address] [place] [address] Dr. Natalya Arthur Hematocrit (Bld) [Volume fraction] 41.5 % Critically low 42.0-54.[address] [facility] Comment on above: Performed By: #### F ETIBC, FERR #### [facility] [address] [place] [address] Dr. Natalya Arthur Hemoglobin (Bld) [Mass/Vol] 13.2 g/dL Critically low 14.0-18.[address] [facility] Comment on above: Performed By: #### F ETIBC, FERR #### [facility] [address] [place] [address] Dr. Natalya Arthur IG # 0.02 10e3/ul Normal 0.00-0.[address] [facility] Comment on above: Performed By: #### F ETIBC, FERR #### [facility] [address] [place] [address] Dr. Natalya Arthur IG % 0.4 % Normal 0.0-0.[address] [facility] Comment on above: Performed By: #### F ETIBC, FERR #### [facility] [address] [place] [address] Dr. Natalya Arthur LYMPH # 0.8 103/ul Critically low 1.2-3.8 [facility] Comment on above: Performed By: #### F ETIBC, FERR #### [facility] [address] [place] [address] Dr. Natalya rAthur Lymphocytes/100 WBC (Bld) 17.0 % Critically low 20.5-60.0 [facility] Comment on above: Performed By: #### F ETIBC, FERR #### [facility] [address] [place] [address] Dr. Natalya Arthur MANUAL DIFF REQ NO Normal [facility] Comment on above: Performed By: #### F ETIBC, FERR #### [facility] [address] [place] [address] Dr. Natalya Arthur MCH (RBC) [Entitic mass] 30.9 pg Normal 25.9-34.0 [facility] Comment on above: Performed By: #### F ETIBC, FERR #### [facility] [address] [place] [address] Dr. Natalya Arthur MCHC (RBC) [Mass/Vol] 31.8 g/dL Normal 29.9-35.2 [facility] Comment on above: Performed By: #### F ETIBC, FERR #### [facility] [address] [place] [address] Dr. Natalya Arthur MCV (RBC) [Entitic vol] 97.2 fL Critically high 80.0-94.0 [facility] Comment on above: Performed By: #### F ETIBC, FERR #### [facility] [address] [place] [address] Dr. Natalya Arthur MONO # 0.5 103/ul Normal 0.3-0.8 [facility] Comment on above: Performed By: #### F ETIBC, FERR #### [facility] [address] [place] [address] Dr. Natalya Arthur Monocytes/100 WBC (Bld) 10.5 % Normal 1.7-12.0 [facility] Comment on above: Performed By: #### F ETIBC, FERR #### [facility] [address] [place] [address] Dr. Natalya Arthur NEUT # 3.2 103/ul Normal 1.4-6.5 [facility] Comment on above: Performed By: #### F ETIBC, FERR #### [facility] [address] [place] [address] Dr. Natalya Arthur Neutrophils/100 WBC (Bld) 67.7 % Normal 43.0-75.0 [facility] Comment on above: Performed By: #### F ETIBC, FERR #### [facility] [address] [place] [address] Dr. Natalya Arthur Platelet mean volume (Bld) [Entitic vol] 10.7 fL Normal 9.5-13.5 [facility] Comment on above: Performed By: #### F ETIBC, FERR #### [facility] [address] [place] [address] Dr. Natalya Arthur PLT 106 103/ul Critically low 150-450 [facility] Comment on above: Result Comment: smea r reviewed Performed By: #### F ETIBC, FERR #### [facility] [address] [place] [address] Dr. Natalya Arthur RBC 4.27 106/ul Critically low 4.70-6.10 [facility] Comment on above: Performed By: #### F ETIBC, FERR #### [facility] [address] [place] [address] Dr. Natalya Arthur WBC 4.8 103/ul Normal 4.0-11.[address] [facility] Comment on above: Performed By: #### F ETIBC, FERR #### [facility] [address] [place] [address] Dr. Natalya Arthur FERRITINon 07-12-2021 Ferritin [Mass/Vol] 94.0 ng/mL Normal 17.9-464.0 [facility] Comment on above: Performed By: #### F ETIBC, FERR #### [facility] [address] [place] [address] Dr. Natalya Arthur IRON AND TIBCon 07-12-2021 % SATURATION 26.8 % Normal [facility] Comment on above: Performed By: #### F ETIBC, FERR #### [facility] [address] [place] [address] Dr. Natalya Arthur Iron [Mass/Vol] 106.0 ug/dL Normal 49.0-181.0 [facility] Comment on above: Performed By: #### F ETIBC, FERR #### [facility] [address] [place] [address] Dr. Natalya Arthur TIBC DIRECT 395.0 ug/dL Normal 261.0-497. 0 [facility] Comment on above: Performed By: #### F ETIBC, FERR #### [facility] [address] [place] [address] Dr. Natalya Arthur LIPID PROFILEon 07-12-2021 CHOL-HDL RATIO NORM SEE BELOW Normal [facility] Comment on above: Result Comment: 3.3 - 4.4 LOW RISK 4.4 - 7.1 AVERAGE RISK 7.1 - 11.0 MODERATE RISK >11.0 HIGH RISK Performed By: #### L IVER, LIPID #### [facility] [address] [place] [address] Dr. Natalya Arthur Cholesterol [Mass/Vol] 139 mg/dL Normal <=200 [facility] Comment on above: Performed By: #### L IVER, LIPID #### [facility] [address] [place] [address] Dr. Natalya Arthur Cholesterol in HDL [Mass/Vol] 58 mg/dL Normal 40-60 [facility] Comment on above: Performed By: #### L IVER, LIPID #### [facility] [address] [place] [address] Dr. Natalya Arthur Cholesterol in LDL [Mass/Vol] 58.8 mg/dL Normal [facility] Comment on above: Performed By: #### L IVER, LIPID #### [facility] [address] [place] [address] Dr. Natalya Arthur Cholesterol.total/Chol esterol in HDL [Mass ratio] 2.4 {ratio} Normal [facility] Comment on above: Performed By: #### L IVER, LIPID #### [facility] [address] [address] [address] Natalya Arthur HDL NORMAL > or = 60 mg/dl - LO W CARDIOVASCULAR RISK <40 mg/dl - HIGH CARDIOVASCULAR RISK Normal [facility] Comment on above: Performed By: #### L IVER, LIPID #### [facility] [address] [address] [address] Natalya Arthur LDL CALC NORMAL SEE BELOW Normal [facility] Comment on above: Result Comment: <100 mg/dl OPTIMAL 100 - 129 mg/dl NEAR OR ABOVE OPTIMAL 130 - 159 mg/dl BORDERLINE HIGH 160 - 189 mg/dl HIGH >190 mg/dl VERY HIGH Performed By: #### L IVER, LIPID #### [facility] [address] [address] [address] Natalya Arthur Triglyceride [Mass/Vol] 111 mg/dL Normal <=150 [facility] Comment on above: Performed By: #### L IVER, LIPID #### [facility] [address] [address] [address] Natalya Arthur VLDL CALC 22.2 mg/dL Normal [facility] Comment on above: Performed By: #### L IVER, LIPID #### [facility] [address] [address] [address] Natalya Arthur LIVER PROFILEon 07-12-2021 Albumin [Mass/Vol] 3.4 g/dL Normal 3.4-5.0 [facility] Comment on above: Performed By: #### L IVER, LIPID #### [facility] [address] [address] [address] Natalya Arthur Albumin/Globulin [Mass ratio] 0.9 {ratio} Normal [facility] Comment on above: Performed By: #### L IVER, LIPID #### [facility] [address] [address] [address] Natalya Arthur ALP [Catalytic activity/Vol] 129 U/L Critically high 46-116 [facility] Comment on above: Performed By: #### L IVER, LIPID #### [facility] [address] [address] [address] Natalya Arthur ALT [Catalytic activity/Vol] 72 U/L Critically high 16-63 [facility] Comment on above: Performed By: #### L IVER, LIPID #### [facility] [address] [address] [address] Natalya Arthur AST [Catalytic activity/Vol] 57 U/L Critically high 15-37 [facility] Comment on above: Performed By: #### L IVER, LIPID #### [facility] [address] [address] [address] Natalya Arthur BILI, CONJUGATED 0.2 mg/dL Normal 0.0-0.3 [facility] Comment on above: Performed By: #### L IVER, LIPID #### [facility] [address] [place] [address] Dr. Natalya Arthur Bilirubin [Mass/Vol] 0.6 mg/dL Normal 0.2-1.3 [facility] Comment on above: Performed By: #### L IVER, LIPID #### [facility] [address] [address] [address] Natalya Arthur Globulin (S) [Mass/Vol] 3.9 g/dL Normal [facility] Comment on above: Performed By: #### L IVER, LIPID #### [facility] [address] [address] [address] Natalya Arthur Protein [Mass/Vol] 7.3 g/dL Normal 6.1-8.2 [facility] Comment on above: Performed By: #### L IVER, LIPID #### [facility] [address] [place] [address] Dr. Natalya Arthur PROTIMEon 07-12-2021 INR Coag (PPP) [Relative time] 1.10 {INR} Normal [facility] Comment on above: Performed By: #### F ETIBC, FERR #### [facility] [address] [place] [address] Dr. Natalya Arthur INR GUIDELINES SEE BELOW Normal [facility] Comment on above: Result Comment: REFUGIO RED INR: 2.0 - 3.0 CONDITIONS NOT LISTED BELOW 2.5 - 3.5 FOR PROSTHETIC HEART VALVE REPLACEMENT 2.5 - 3.5 RECURRENT THROMBOSIS Performed By: #### F RAFA MUÑOZ #### [facility] [address] [address] [address] Natalya Arthur PT Coag (PPP) [Time] 11.8 s Critically high 9.0-11.6 [facility] Comment on above: Performed By: #### F TONI, FERR #### [facility] [address] [address] [address] Natalya Arthur Comprehensive Metabolic Pane ross 06-07-2021 Albumin [Mass/Vol] 3.9 g/dL Normal 3.6-5.1 [facility] Comment on above: Performed By: #### C MP #### [facility] [address], [place] [id number] Albumin/Globulin [Mass ratio] 1.4 {ratio} Normal 1.0-2.5 [facility] Comment on above: Performed By: #### C MP #### [facility] [address], [place] [id number] ALP [Catalytic activity/Vol] 128 U/L Normal 40-129 [facility] Comment on above: Performed By: #### C MP #### [facility] [address], [place] [id number] ALT [Catalytic activity/Vol] 45 U/L Normal 9-46 [facility] Comment on above: Result Comment: 02/22 Female reference range changed. Performed By: #### C MP #### [facility] [address], [place] [id number] Anion gap [Moles/Vol] 15 mmol/L Normal 12-20 [facility] Comment on above: Result Comment: Effe ctive 03/30/2019 reference range changed. Performed By: #### C MP #### [facility] [address], [place] [id number] AST [Catalytic activity/Vol] 49 U/L High 10-40 [facility] Comment on above: Performed By: #### C MP #### [facility] [address], [place] [id number] Bilirubin [Mass/Vol] 0.36 mg/dL Normal 0.30-1.20 [facility] Comment on above: Performed By: #### C MP #### [facility] [address], [place] [id number] BUN/CREA 15 Ratio Normal 6-22 [facility] Comment on above: Performed By: #### C MP #### [facility] [address], [place] [id number] Calcium [Mass/Vol] 9.2 mg/dL Normal 8.6-10.2 [facility] Comment on above: Performed By: #### C MP #### [facility] [address], [place] [id number] Chloride [Moles/Vol] 104 mmol/L Normal 98-107 [facility] Comment on above: Performed By: #### C MP #### [facility] [address], [place] [id number] CO2 [Moles/Vol] 24 mmol/L Normal 20-31 [facility] Comment on above: Performed By: #### C MP #### [facility] [address], [place] [id number] Creatinine [Mass/Vol] 1.0 mg/dL Normal 0.7-1.4 [facility] Comment on above: Performed By: #### C MP #### [facility] [address], [place] [id number] eGFRAA 90 mL/min/1.73m2 Normal >60 [facility] Comment on above: Performed By: #### C MP #### [facility] [address], [place] [id number] eGFRNAA 74 mL/min/1.73m2 Normal >60 [facility] Comment on above: Performed By: #### C MP #### [facility] [address], [place] [id number] Globulin (S) [Mass/Vol] 2.7 g/dL Normal 1.9-3.7 [facility] Comment on above: Performed By: #### C MP #### [facility] [address], [place] [id number] Glucose [Mass/Vol] 111 mg/dL High 65-99 [facility] Comment on above: Result Comment: For FASTING Glucose --- ADA reference ranges: Normal 65-99 mg/dl Prediabetes 100-125 Diabetes >/= 126 Performed By: #### C MP #### [facility] [address], [place] [id number] Potassium [Moles/Vol] 4.5 mmol/L Normal 3.5-5.5 [facility] Comment on above: Performed By: #### C MP #### [facility] [address], [place] [id number] Protein [Mass/Vol] 6.6 g/dL Normal 6.1-8.1 [facility] Comment on above: Performed By: #### C MP #### [facility] [address], [place] [id number] Sodium [Moles/Vol] 139 mmol/L Normal 135-146 [facility] Comment on above: Performed By: #### C MP #### [facility] [address], [place] [id number] Urea nitrogen [Mass/Vol] 15 mg/dL Normal 7-25 [facility] Comment on above: Performed By: #### C MP #### [facility] [address], [place] [id number] Q - HEPATITIS PANEL ABC GENE RAL WITH REFLEXon 06-07-2021 HEPATITIS A AB, TOTAL Non-Reactive Normal NON-RE ACTI VE [facility] Comment on above: Order Comment: [facility] performed at: [employer], [facility], [address] [facility], [address] [place] [address], [place], [address], Bailiff: Sd Sharma MD [facility] Date/Time: [facility] Results Received Date/Time: [facility] Reported Date/Time: Result Comment: For additional information, please refer to http://education.[employer].Sendia/faq/DOT185 (This link is being provided for informational/ educational purposes only.) Performed By: #### 6 [id number] #### [facility] [address] [place] [address] HEPATITIS B CORE AB TOTAL Non-Reactive Normal NON-REACTI VE [facility] Comment on above: Order Comment: [facility] performed at: [employer], [facility], [address] [place] [address], [address] [place] [address], [address] [place] [address], Bailiff: Sd Sharma MD [facility] Date/Time: [facility] Results Received Date/Time: [facility] Reported Date/Time: Performed By: #### 6 [id number] #### [facility] [address] [place] [address] HEPATITIS B SURFACE ANTIBODY QL Non-Reactive Normal NON-REACTI VE [facility] Comment on above: Order Comment: [facility] performed at: [employer], [facility], [address] [place] [address], [address] [place] [address], [address] [place] [address], Bailiff: Sd Sharma MD [facility] Date/Time: [facility] Results Received Date/Time: [facility] Reported Date/Time: Performed By: #### 6 [id number] #### [facility] [address] [place] [address] HEPATITIS B SURFACE ANTIGEN Non-Reactive Normal NON-REACTI VE [facility] Comment on above: Order Comment: [facility] performed at: [employer], [facility], [address] [facility], [address] [place] [address], [address] [place] [address], Bailiff: Sd Sharma MD [facility] Date/Time: [facility] Results Received Date/Time: [facility] Reported Date/Time: Performed By: #### 6 [id number] #### [facility] [address] [place] [address] HEPATITIS C ANTIBODY Non-Reactive Normal NON-AMANDA CTI VE [facility] Comment on above: Order Comment: [facility] performed at: [employer], [facility], [address], [address] [place], [address], Bailiff: Sd Sharma MD [facility] Date/Time: [facility] Results Received Date/Time: [facility] Reported Date/Time: Performed By: #### 6 [id number] #### [facility] [address] [place] [address] SIGNAL TO CUT-OFF 0.02 Normal <1.00 [facility] Comment on above: Order Comment: [facility] performed at: [employer], [facility], [address], [address] [place], [address], Bailiff: Sd Sharma MD [facility] Date/Time: [facility] Results Received Date/Time: [facility] Reported Date/Time: Result Comment: HCV antibody was non-reactive. There is no laboratory evidence of HCV infection. In most cases, no further action is required. However, if recent HCV exposure is suspected, a test for HCV RNA (test code 65290) is suggested. For additional information please refer to http://education.[employer]/faq/UTD12k2 (This link is being provided for informational/ educational purposes only.) Performed By: #### 6 [id number] #### [facility] [address] [place] [address] Complete Blood Count with Au to Diffon 05-01-2021 Basophils (Bld) [#/Vol] 0.05 10*3/uL Normal 0.00-0.20 [facility] Comment on above: Performed By: #### C BCAD, CMP, VITD, TSH reflex FT4, LIPD #### [facility] [address] [place], [place] [id number] Basophils/100 WBC (Bld) 1.1 % Normal [facility] Comment on above: Performed By: #### C BCAD, CMP, VITD, TSH reflex FT4, LIPD #### [facility] [address] [place], [place] [id number] Eosinophils (Bld) [#/Vol] 0.29 10*3/uL Normal 0.02-0.50 [facility] Comment on above: Performed By: #### C BCAD, CMP, VITD, TSH reflex FT4, LIPD #### [facility] [address], [place] [id number] Eosinophils/100 WBC (Bld) 6.3 % Normal [facility] Comment on above: Performed By: #### C BCAD, CMP, VITD, TSH reflex FT4, LIPD #### [facility] [address], [place] [id number] Erythrocyte distribution width (RBC) [Ratio] 12.9 % Normal 11.0-15.0 [facility] Comment on above: Performed By: #### C BCAD, CMP, VITD, TSH reflex FT4, LIPD #### [facility] [address], [place] [id number] Hematocrit (Bld) [Volume fraction] 40.4 % Normal 38.5-50.0 [facility] Comment on above: Performed By: #### C BCAD, CMP, VITD, TSH reflex FT4, LIPD #### [facility] [address], [place] [id number] Hemoglobin (Bld) [Mass/Vol] 13.1 g/dL Normal 13.0-17.1 [facility] Comment on above: Performed By: #### C BCAD, CMP, VITD, TSH reflex FT4, LIPD #### [facility] [address], [place] [id number] Lymphocytes (Bld) [#/Vol] 0.9 10*3/uL Normal 0.9-3.9 [facility] Comment on above: Performed By: #### C BCAD, CMP, VITD, TSH reflex FT4, LIPD #### [facility] [address], [place] [id number] Lymphocytes/100 WBC (Bld) 18.6 % Normal [facility] Comment on above: Performed By: #### C BCAD, CMP, VITD, TSH reflex FT4, LIPD #### [facility] [address], [place] [id number] MCH (RBC) [Entitic mass] 31.0 pg Normal 27.0-33.0 [facility] Comment on above: Performed By: #### C BCAD, CMP, VITD, TSH reflex FT4, LIPD #### [facility] [address], [place] [id number] MCHC (RBC) [Mass/Vol] 32.4 g/dL Normal 32.0-36.0 [facility] Comment on above: Performed By: #### C BCAD, CMP, VITD, TSH reflex FT4, LIPD #### [facility] [address], [place] [id number] MCV (RBC) [Entitic vol] 96 fL Normal 80-100 [facility] Comment on above: Performed By: #### C BCAD, CMP, VITD, TSH reflex FT4, LIPD #### [facility] [address], [place] [id number] Monocytes (Bld) [#/Vol] 0.4 10*3/uL Normal 0.2-0.9 [facility] Comment on above: Performed By: #### C BCAD, CMP, VITD, TSH reflex FT4, LIPD #### [facility] [address], [place] [id number] Monocytes/100 WBC (Bld) 8.4 % Normal [facility] Comment on above: Performed By: #### C BCAD, CMP, VITD, TSH reflex FT4, LIPD #### [facility] [address], [place] [id number] Neutrophils (Bld) [#/Vol] 3.0 10*3/uL Normal 1.5-7.8 [facility] Comment on above: Performed By: #### C BCAD, CMP, VITD, TSH reflex FT4, LIPD #### [facility] [address], [place] [id number] Neutrophils/100 WBC (Bld) 65.4 % Normal [facility] Comment on above: Performed By: #### C BCAD, CMP, VITD, TSH reflex FT4, LIPD #### [facility] [address], [place] [id number] Platelet mean volume (Bld) [Entitic vol] 10.20 fL Normal 7.50-12.50 [facility] Comment on above: Performed By: #### C BCAD, CMP, VITD, TSH reflex FT4, LIPD #### [facility] [address], [place] [id number] Platelets (Bld) [#/Vol] 141 10*3/uL Normal 140-400 [facility] Comment on above: Performed By: #### C BCAD, CMP, VITD, TSH reflex FT4, LIPD #### [facility] [address], [place] [id number] RBC (Bld) [#/Vol] 4.22 10*6/uL Normal 4.20-5.80 [facility] Comment on above: Performed By: #### C BCAD, CMP, VITD, TSH reflex FT4, LIPD #### [facility] [address], [place] [id number] RDW-SD 45.2 fL Normal 37.0-50.0 [facility] Comment on above: Performed By: #### C BCAD, CMP, VITD, TSH reflex FT4, LIPD #### [facility] [address], [place] [id number] WBC (Bld) [#/Vol] 4.6 10*3/uL Normal 3.8-11.0 [facility] Comment on above: Performed By: #### C BCAD, CMP, VITD, TSH reflex FT4, LIPD #### [facility] [address], [place] [id number] Comprehensive Metabolic Pane ross 05-01-2021 Albumin [Mass/Vol] 4.0 g/dL Normal 3.6-5.1 [facility] Comment on above: Performed By: #### C BCAD, CMP, VITD, TSH reflex FT4, LIPD #### [facility] [address], [place] [id number] Albumin/Globulin [Mass ratio] 1.5 {ratio} Normal 1.0-2.5 [facility] Comment on above: Performed By: #### C BCAD, CMP, VITD, TSH reflex FT4, LIPD #### [facility] [address] [facility] [place] [id number] ALP [Catalytic activity/Vol] 140 U/L High 40-129 [facility] Comment on above: Performed By: #### C BCAD, CMP, VITD, TSH reflex FT4, LIPD #### [facility] [address] [facility] [place] [id number] ALT [Catalytic activity/Vol] 63 U/L High 9-46 [facility] Comment on above: Result Comment: 02/22 Female reference range changed. Performed By: #### C BCAD, CMP, VITD, TSH reflex FT4, LIPD #### [facility] [address], [place] [id number] Anion gap [Moles/Vol] 17 mmol/L Normal 12-20 [facility] Comment on above: Result Comment: Effe ctive 03/30/2019 reference range changed. Performed By: #### C BCAD, CMP, VITD, TSH reflex FT4, LIPD #### [facility] [address] [facility] [place] [id number] AST [Catalytic activity/Vol] 62 U/L High 10-40 [facility] Comment on above: Performed By: #### C BCAD, CMP, VITD, TSH reflex FT4, LIPD #### [facility] [address], [place] [id number] Bilirubin [Mass/Vol] 0.41 mg/dL Normal 0.30-1.20 [facility] Comment on above: Performed By: #### C BCAD, CMP, VITD, TSH reflex FT4, LIPD #### [facility] [address] [facility] [place] [id number] BUN/CREA 13 Ratio Normal 6-22 [facility] Comment on above: Performed By: #### C BCAD, CMP, VITD, TSH reflex FT4, LIPD #### [facility] [address] [facility] [place] [id number] Calcium [Mass/Vol] 9.5 mg/dL Normal 8.6-10.2 [facility] [place] [facility] Comment on above: Performed By: #### C BCAD, CMP, VITD, TSH reflex FT4, LIPD #### [facility] [address], [place] [id number] Chloride [Moles/Vol] 106 mmol/L Normal 98-107 [facility] Comment on above: Performed By: #### C BCAD, CMP, VITD, TSH reflex FT4, LIPD #### [facility] [address], [place] [id number] CO2 [Moles/Vol] 26 mmol/L Normal 20-31 [facility] Comment on above: Performed By: #### C BCAD, CMP, VITD, TSH reflex FT4, LIPD #### [facility] [address], [place] [id number] Creatinine [Mass/Vol] 0.9 mg/dL Normal 0.7-1.4 [facility] Comment on above: Performed By: #### C BCAD, CMP, VITD, TSH reflex FT4, LIPD #### [facility] [address], [place] [id number] eGFRAA 99 mL/min/1.73m2 Normal >60 [facility] Comment on above: Performed By: #### C BCAD, CMP, VITD, TSH reflex FT4, LIPD #### [facility] [address], [place] [id number] eGFRNAA 81 mL/min/1.73m2 Normal >60 [facility] Comment on above: Performed By: #### C BCAD, CMP, VITD, TSH reflex FT4, LIPD #### [facility] [address], [place] [id number] Globulin (S) [Mass/Vol] 2.6 g/dL Normal 1.9-3.7 [facility] Comment on above: Performed By: #### C BCAD, CMP, VITD, TSH reflex FT4, LIPD #### [facility] [address], [place] [id number] Glucose [Mass/Vol] 89 mg/dL Normal 65-99 [facility] [place] [facility] Comment on above: Result Comment: For FASTING Glucose --- ADA reference ranges: Normal 65-99 mg/dl Prediabetes 100-125 Diabetes >/= 126 Performed By: #### C BCAD, CMP, VITD, TSH reflex FT4, LIPD #### [facility] [address], [place] [id number] Potassium [Moles/Vol] 5.0 mmol/L Normal 3.5-5.5 [facility] Comment on above: Performed By: #### C BCAD, CMP, VITD, TSH reflex FT4, LIPD #### [facility] [address], [place] [id number] Protein [Mass/Vol] 6.6 g/dL Normal 6.1-8.1 [facility] Comment on above: Performed By: #### C BCAD, CMP, VITD, TSH reflex FT4, LIPD #### [facility] [address], [place] [id number] Sodium [Moles/Vol] 143 mmol/L Normal 135-146 [facility] [employer]ner Comment on above: Performed By: #### C BCAD, CMP, VITD, TSH reflex FT4, LIPD #### [facility] [address], [place] [id number] Urea nitrogen [Mass/Vol] 12 mg/dL Normal 7-25 [facility] Specialist Comment on above: Performed By: #### C BCAD, CMP, VITD, TSH reflex FT4, LIPD #### [facility] [address], [place] [id number] Lipid Panelon 05-01-2021 Cholesterol [Mass/Vol] 135 mg/dL Normal 125-200 No [facility] Specialist Comment on above: Result Comment: Low risk < 200mg/dL Borderline risk 201-239 mg/dl High risk > or equal to 240 Performed By: #### C BCAD, CMP, VITD, TSH reflex FT4, LIPD #### [facility] [address], [place] [id number] Cholesterol in HDL [Mass/Vol] 44 mg/dL Normal >40 [facility] Specialist Comment on above: Result Comment: High Cardiovascular Risk HDL <40 mg/dL Low Cardiovascular Risk HDL > or equal to 60 mg/dl Performed By: #### C BCAD, CMP, VITD, TSH reflex FT4, LIPD #### [facility] [address], [place] [id number] Cholesterol in LDL [Mass/Vol] 65 mg/dL Normal [facility] Specialist Comment on above: Result Comment: LDL ATP III CLASSIFICATION LDL less than 100 mg/dl Optimal LDL 100-129 mg/dl Near or above optimal LDL 130-159 Borderline high LDL 160-189 High LDL greater than 189 mg/dl Very High Performed By: #### C BCAD, CMP, VITD, TSH reflex FT4, LIPD #### [facility] [address], [place] [id number] Cholesterol in VLDL [Mass/Vol] 26 mg/dL Normal [facility] [employer] Comment on above: Performed By: #### C BCAD, CMP, VITD, TSH reflex FT4, LIPD #### [facility] [address], [place] [id number] Cholesterol.total/Chol esterol in HDL [Mass ratio] 3 {ratio} Normal [facility] [employer] Comment on above: Performed By: #### C BCAD, CMP, VITD, TSH reflex FT4, LIPD #### [facility] [address], [place] [id number] Triglyceride [Mass/Vol] 130 mg/dL Normal 30-150 [facility] [employer] Comment on above: Result Comment: TRIG ATPIII CLASSIFICATIONS TRIG less than 150 mg/dl Normal TRIG 150-199 mg/dl Borderline High TRIG 200-500 mg/dl High TRIG greather than 500 mg/dl Very High Performed By: #### C BCAD, CMP, VITD, TSH reflex FT4, LIPD #### [facility] [address], [place] [phone] PSA SCREEN (MEDICARE)on TPSA 0.983 ng/mL Normal <4.000 [facility] [employer]ner Comment on above: Result Comment: PSA Test Method: ECLIA/Mick e 601 Performed By: #### P SA #### [facility] [address], [place] [id number] TSH w/ Reflex to Free T4on 0 05-01-2021 TSH 1.150 uIU/mL Normal 0.400-4.50 0 [facility] [employer]ner Comment on above: Performed By: #### C BCAD, CMP, VITD, TSH reflex FT4, LIPD #### [facility] [address], [place] [id number] Vitamin D 25-OHon 05-01-2021 VIT D 25 OH 32 ng/ml Normal >29 [facility] [employer]ner Comment on above: Result Comment: Maria E min D Status Deficiency <20 ng/mL Insufficiency 20-29 ng/mL Optimal 30-100 ng/mL Possible Toxicity >=150 ng/mL Performed By: #### C BCAD, CMP, VITD, TSH reflex FT4, LIPD #### [facility] [address], [place] [id number] Covid-19 PCR ([facility])on SARS-CoV-2 (COVID-19) RNA GÓMEZ+probe Ql (Unsp spec) Not detected Normal NOT DETECTED [facility] Comment on above: Result Comment: This test is not yet approved or cleared by the [place] FDA. When there are no FDA-approved or cleared tests available, and other criteria are met, FDA can make tests available under an emergency access mechanism called an Emergency Use Authorization (EUA). The EUA for this test is supported by the Carrier of Health and Human Service's (HHS's) declaration [...] Performed By: #### F ETIBC, FERR #### [facility] [address] [place], [place] [address] Dr. Natalya Arthur CBC AUTO DIFFon 02-03-2021 BASO # 0.0 103/ul Normal 0.0-0.[address] [facility] Comment on above: Performed By: #### C BC #### [facility] [address] [place] [address] [address] Natalya Arthur Basophils/100 WBC (Bld) 0.3 % Normal 0.2-2.0 [facility] Comment on above: Performed By: #### C BC #### [facility] [address] [place] [address] [address] Natalya Arthur EO # 0.0 103/ul Normal 0.0-0.7 [facility] Comment on above: Performed By: #### C BC #### [facility] [address] [place] [address] [address] Natalya Arthur Eosinophils/100 WBC (Bld) 0.1 % Critically low 0.9-7.0 [facility] Comment on above: Performed By: #### C BC #### [facility] [address] [place] [address] Dr. Natalya Arthur Erythrocyte distribution width (RBC) [Ratio] 13.2 % Normal 11.0-15.0 [facility] Comment on above: Performed By: #### C BC #### [facility] [address] [place] [address] Dr. Natalya Arthur Hematocrit (Bld) [Volume fraction] 46.5 % Normal 42.0-54.0 [facility] Comment on above: Performed By: #### C BC #### [facility] [address] [place] [address] Dr. Natalya Arthur Hemoglobin (Bld) [Mass/Vol] 15.2 g/dL Normal 14.0-18.0 [facility] Comment on above: Performed By: #### C BC #### [facility] [address] [place] [address] [address] Natalya Arthur IG # 0.04 10e3/ul Critically high 0.00-0.03 [facility] Comment on above: Performed By: #### C BC #### [facility] [address] [place] [address] [address] Natalya Arthur IG % 0.3 % Normal 0.0-0.5 [facility] Comment on above: Performed By: #### C BC #### [facility] [address] [place] [address] [address] Natalya Arthur LYMPH # 1.2 103/ul Normal 1.2-3.8 [facility] Comment on above: Performed By: #### C BC #### [facility] [address] [place] [address] [address] Natalya Arthur Lymphocytes/100 WBC (Bld) 10.3 % Critically low 20.5-60.0 [facility] Comment on above: Performed By: #### C BC #### [facility] [address] [place] [address] [address] Natalya Arthur MANUAL DIFF REQ NO Normal [facility] Comment on above: Performed By: #### C BC #### [facility] [address] [place] [address] Dr. Natalya Arthur MCH (RBC) [Entitic mass] 31.0 pg Normal 25.9-34.0 [facility] Comment on above: Performed By: #### C BC #### [facility] [address] [place] [address] Dr. Natalya Arthur MCHC (RBC) [Mass/Vol] 32.7 g/dL Normal 29.9-35.2 [facility] Comment on above: Performed By: #### C BC #### [facility] [address] [place] [address] Dr. Natalya Arthur MCV (RBC) [Entitic vol] 94.9 fL Critically high 80.0-94.0 [facility] Comment on above: Performed By: #### C BC #### [facility] [address] [place] [address] Dr. Natalya Arthur MONO # 1.1 103/ul Critically high 0.3-0.8 [facility] Comment on above: Performed By: #### C BC #### [facility] [address] [place] [address] Dr. Natalya Arthur Monocytes/100 WBC (Bld) 9.2 % Normal 1.7-12.0 [facility] Comment on above: Performed By: #### C BC #### [facility] [address] [place] [address] [address] Natalya Arthur NEUT # 9.6 103/ul Critically high 1.4-6.5 [facility] Comment on above: Performed By: #### C BC #### [facility] [address] [place] [address] [address] Natalya Arthur Neutrophils/100 WBC (Bld) 79.8 % Critically high 43.0-75.0 [facility] Comment on above: Performed By: #### C BC #### [facility] [address] [place] [address] [address] Natalya Arthur Platelet mean volume (Bld) [Entitic vol] 10.3 fL Normal 9.5-13.5 [facility] Comment on above: Performed By: #### C BC #### [facility] [address] [place] [address] [address] Natalya Arthur PLT 126 103/ul Critically low 150-450 [facility] Comment on above: Performed By: #### C BC #### [facility] [address] [place] [address] [address] Natalya Arthur RBC 4.90 106/ul Normal 4.70-6.[address] [facility] Comment on above: Performed By: #### C BC #### [facility] [address] [place] [address] Dr. Natalya Arthur WBC 12.1 103/ul Critically high 4.0-11.0 [facility] Comment on above: Performed By: #### C BC #### [facility] [address] [place] [address] [address] Natalya Arthur ER URINE PROFILEon 1 Bilirubin Ql (U) Negative Normal NEGATIVE [facility] Comment on above: Performed By: #### ROHAN BESSRO #### [facility] [address] [place] [address] [address] Natalya Arthur Clarity (U) CLEAR Normal CLEAR [facility] Comment on above: Performed By: #### ROHAN BESSRO #### [facility] [address] [place] [address] Dr. Natalya Arthur Color (U) YELLOW Normal YELLOW [facility] Comment on above: Performed By: #### ROHAN BESSRO #### [facility] [address] [place] [address] Dr. Natalya MALLOY A micrscopic examina tion will be performed if indicated. Normal [facility] Comment on above: Performed By: #### RHOAN BESSRO #### [facility] [address] [place] [address] Dr. Natalya Arthur Glucose Ql (U) Negative Normal NEGATIVE [facility] Comment on above: Performed By: #### ROHAN BESSRO #### [facility] [address] [place] [address] Dr. Natalya Arthur Hemoglobin Ql (U) LARGE Abnormal NEGATIVE [facility] Comment on above: Performed By: #### ROHAN BESSRO #### [facility] [address] [place] [address] Dr. Natalya Arthur Ketones Ql (U) Negative Normal NEGATIVE [facility] Comment on above: Performed By: #### ROHAN BESSRO #### [facility] [address] [place] [address] Dr. Natalya Arthur LEUKOCYTES Negative Normal NEGATIVE [facility] Comment on above: Performed By: #### ROHAN BESSRO #### [facility] [address] [place] [address] Dr. Natalya Arthur Nitrite Ql (U) Negative Normal NEGATIVE [facility] Comment on above: Performed By: #### BERTRAM BESSICRO #### [facility] [address] [place] [address] Dr. Natalya Arthur pH (U) 6.0 [pH] Normal 5-[address] [facility] Comment on above: Performed By: #### ROHAN BESSRO #### [facility] [address] [place] [address] Dr. Natalya Arthur Protein (U) [Mass/Vol] 100 mg/dL Abnormal NEGAT ANTONIO/ TRACE [facility] Comment on above: Performed By: #### Arthur MCLEAN UMICRO #### [facility] [address] [place] [address] Dr. Natalya Arthur SPEC GRAVITY >=1.030 Abnormal 1.005-<=1. 025 [facility] Comment on above: Performed By: #### Arthur MCLEAN, ICRO #### [facility] [address] [place] [address] Dr. Natalya Arthur UR MICRO IND INDICATED Normal [facility] Comment on above: Performed By: #### BERTRAM BESSICRO #### [facility] [address] [place] [address] Dr. Natalya Arthur Urobilinogen Qn (U) 0.2 {Vonnie'U}/dL Normal 0.2 - 1. 0 [facility] Comment on above: Performed By: #### ROHAN BESSRO #### [facility] [address] [place] [address] Dr. Natalya Arthur LACTATE/LACTIC ACIDon 2020 Lactate [Moles/Vol] 1.7 mmol/L Normal 0.7-2.0 [facility] Comment on above: Performed By: #### C ARIELLATB #### [facility] [address] [place] [address] Dr. Natalya Arthur LIPASEon 02-03-2021 Lipase [Catalytic activity/Vol] 143.0 U/L Normal 23.0-300.0 [facility] Comment on above: Performed By: #### C ARIELLATBH #### [facility] [address] [place] [address] Dr. Natalya Arthur PROF 14(COMP METB)on 021 Albumin [Mass/Vol] 3.6 g/dL Normal 3.5-5.0 [facility] Comment on above: Performed By: #### C ARIELLATBH #### [facility] [address] [place] [address] Dr. Natalya Arthur Albumin/Globulin [Mass ratio] 0.8 {ratio} Normal [facility] Comment on above: Performed By: #### C VDTBH #### [facility] [address] [place] [address] [address] Natalya Arthur ALP [Catalytic activity/Vol] 108 U/L Normal 38-126 [facility] Comment on above: Performed By: #### C VDTBH #### [facility] [address] [place] [address] Dr. Natalya Arthur ALT [Catalytic activity/Vol] 65 U/L Normal 21-72 [facility] Comment on above: Performed By: #### C VDTBH #### [facility] [address] [place] [address] Dr. Natalya Arthur Anion gap [Moles/Vol] 13.9 mmol/L Normal [facility] Comment on above: Performed By: #### C VDTBH #### [facility] [address] [place] [address] Dr. Natalya Arthur AST [Catalytic activity/Vol] 42 U/L Normal 17-59 [facility] Comment on above: Performed By: #### C VDTBH #### [facility] [address] [place] [address] Dr. Natalya Arthur Bilirubin [Mass/Vol] 1.0 mg/dL Normal 0.2-1.3 [facility] Comment on above: Performed By: #### C VDTBH #### [facility] [address] [place] [address] Dr. Natalya Arthur Calcium [Mass/Vol] 9.7 mg/dL Normal 8.4-10.2 [facility] Comment on above: Performed By: #### C VDTBH #### [facility] [address] [place] [address] Dr. Natalya Arthur Chloride [Moles/Vol] 100 mmol/L Normal 98-107 [facility] Comment on above: Performed By: #### C VDTBH #### [facility] [address] [place] [address] Dr. Natalya Arthur CO2 [Moles/Vol] 28.2 mmol/L Normal 22.0-30.0 [facility] Comment on above: Performed By: #### C VDTBH #### [facility] [address] [place] [address] [address] Natalya Arthur Creatinine [Mass/Vol] 1.18 mg/dL Normal 0.66-1.25 [facility] Comment on above: Performed By: #### C VDTBH #### [facility] [address] [place] [address] Dr. Natalya Arthur EGFR-AF [place] >60 Normal >=60 [facility] Comment on above: Performed By: #### C VDTBH #### [facility] [address] [place] [address] [address] Natalya Arthur EGFR-NON AF [place]OREAN =60 Normal >=60 [facility] Comment on above: Performed By: #### C VDTBH #### [facility] [address] [place] [address] Dr. Natalya Arthur Globulin (S) [Mass/Vol] 4.5 g/dL Normal [facility] Comment on above: Performed By: #### C VDTBH #### [facility] [address] [place] [address] [address] Natalya Arthur Glucose [Mass/Vol] 121 mg/dL Critically high 74-106 [facility] Comment on above: Performed By: #### C VDTBH #### [facility] [address] [place] [address] Dr. Natalya Arthur Potassium [Moles/Vol] 4.1 mmol/L Normal 3.4-5.0 [facility] Comment on above: Performed By: #### C VDTBH #### [facility] [address] [place] [address] Dr. Natalya Arthur Protein [Mass/Vol] 8.1 g/dL Normal 6.1-8.2 [facility] [place] Comment on above: Performed By: #### C VDTBH #### [facility] [address] [place] [address] Dr. Natalya Arthur Sodium [Moles/Vol] 138 mmol/L Normal 137-145 [facility] [place] Comment on above: Performed By: #### C VDTBH #### [facility] [address] [place] [address] Dr. Natalya Arthur Urea nitrogen [Mass/Vol] 17.0 mg/dL Normal 9.0-20.0 [facility] Comment on above: Performed By: #### C VDTBH #### [facility] [address] [place] [address] Dr. Natalya Arthur Urea nitrogen/Creatinine [Mass ratio] 14.4 mg/mg Normal [facility] Comment on above: Performed By: #### C VDTBH #### [facility] [address] [place] [address] Dr. Natalya Arthur TROPONIN, HIGH SENSITIVITYon 02-03-2021 HSTROP 49.0 pg/mL Critically high 4.0-42.2 [facility] Comment on above: Result Comment: CUT- OFF POINTS HAVE BEEN ESTABLISHED BASED ON THE FOURTH UNIVERSAL DEFINITIONS OF MYOCARDIAL INFARCTION. THE UPPER REFERENCE LIMIT (URL) OF TROPONIN, DEFINED THE 99TH PERCENTILE OF cTnI DISTRIBUTION IN A REFERENCE POPULATION, HAS BEEN CONFIRMED THE DECISION THRESHOLD FOR [place] DIAGNOSIS. Performed By: #### C VDTB #### [facility] [address] [place] [address] Dr. Natalya Arthur URINE MICROSCOPIC ONLYon AMORPHOUS CRYSTALS FEW Normal [facility] [place] Comment on above: Performed By: #### ROHAN BESSRO #### [facility] [address] [place] [address] Dr. Natalya Arthur BACTERIA TRACE Abnormal NONE SEEN [facility] Comment on above: Performed By: #### Arthur MCLEAN UMICRO #### [facility] [address] [place] [address] Dr. Natalya Arthur Bacteria identified Cx Nom (U) NOT INDICATED Normal [facility] Comment on above: Performed By: #### ROHAN BESSRO #### [facility] [address] [place] [address] Dr. Natalya Arthur CAST NONE SEEN Normal NONE SEEN [facility] Comment on above: Performed By: #### Arthur MCLEAN UMADOLPHRO #### [facility] [address] [place] [address] Dr. Natalya Arthur Crystals LM Nom (Urine sed) SEEN Abnormal NONE SEEN [facility] Comment on above: Performed By: #### E RUR, UMICRO #### [facility] [address] [place] [address] [address] Natalya Arthur Epithelial cells LM Ql (Urine sed) FEW Abnormal NONE SEEN /RARE [facility] Comment on above: Performed By: #### E RUR, UMICRO #### [facility] [address] [place] [address] [address] Natalya Arthur MUCOUS LARGE Abnormal NONE SEEN [facility] Comment on above: Performed By: #### E RUR, UMICRO #### [facility] [address] [place] [address] Dr. Natalya Arthur RBC 10-20 Abnormal 0-[address] [facility] Comment on above: Performed By: #### E RUR, UMICRO #### [facility] [address] [place] [address] Dr. Natalya Arthur WBC 0-2 Abnormal NONE SEEN [facility] Comment on above: Performed By: #### E RUR, UMICRO #### [facility] [address] [place] [address] Dr. Natalya Arthur US SINGLE QUAD RT [...] STEPHEN ARBOLEDA Date: 2021-02-03 19:[address] [facility] XR CHEST 1 Von 02-03-2021 XR [...] by: STEPHEN ARBOLEDA Date: 2021-02-03 19:22 Normal [facility] Cardiovascular Lab Reporton 10-31-2018 Cardiovascular Lab Report [facility] #: [id number] Department of Physician: Artis Horner M.D. Division of Service Date: 10/30/2018 Cardiology Birthdate: 1945 Adult Cardiovascular Room #: [address] [place] [address] Cardiovascular Laboratory Report CLINICAL PRESENTATION: Pankaj Payne is a 73-year-old male with past medical history significant for CAD, status post prior PCI of the left circumflex coronary artery in 02/2018; hypertension; hyperlipidemia; hypothyroidism. The patient was [facility]. He reports worsening fatigue that was [...] noted. 4. Outpatient followup with Dr. Tenorio, [facility]. PROCEDURES: Coronary angiogram, left heart catheterization, [...] infiltrated over the right radial artery. A 6-Citizen [place] Terumo Glidesheath slender was placed in the right radial artery. The radial anti-vasospasm cocktail of verapamil 2.5 mg and nitroglycerin 200 mcg was administered through the sheath. All catheter exchanges were made over the Magic Torque guidewire. Initially, a 5-Citizen [place] Dozier catheter was used to engage the coronary arteries. The Dozier catheter engaged the right coronary artery, but did not engage the left main coronary artery well. I then exchanged over wire to a 6-Citizen [place] JL3.5 catheter which engaged the left main coronary artery. Coronary angiogram was performed in multiple orthogonal views using hand injection of contrast. At this point, it was apparent that the right PDA had intermediate stenosis, I elected to proceed with IFR evaluation. The Garrett Verrata wire was zeroed outside of the body and then normalized at the catheter guide tip. Heparin anticoagulation was used for this procedure and the ACT was maintained greater than 200 seconds. The Garrett Verrata wire was then manipulated to the [...] Schafer M.D. Date Trans: 10/31/2018 05:07 Rishabh/katelin [id number] cc: Frantz Conley M.D. [address] [address] Frantz Tenorio M.D. [address] [address] Normal [facility] Operative Reporton 12-10-201 8 Operative Report [...] day for postoperative care.Hardeep Fraga D.O.glsDictated: 02/25/2018 #[id number]: 02/25/2018 #[id number]: Horace Cabrera [facility] Comment on above: Result Comment: Elec tronically Signed By: Hardeep Fraga DO\.br\Date and Time Signed: 03/03/18 12:57 EST Cardiovascular Lab Reporton 03-01-2018 Cardiovascular Lab Report [facility] MR #: [id number] Department of Physician: Artis Pinedo MEric Division of Service Date: 02/28/2018 Cardiology Birthdate: 1945 Adult Cardiovascular Room #: 3AB [id number] [facility] [address] [place] [address] Cardiovascular Laboratory Report FINAL IMPRESSION: 1. Successful [...] fashion. Using a modified Seldinger technique, a 5-Citizen [place] micropuncture was placed in right internal jugular vein. This was upsized to a regular 6-Citizen [place] sheath. Then, a 6-Citizen [place] Trinh was used for right heart catheterization. The right heart catheterization was performed. Access of the right radial artery under ultrasound guidance and in the right ulnar artery under ultrasound guidance a 6-Citizen [place] sheath was placed and then used a 6-Citizen [place] JL3.5 and JR5 catheter for coronary angiography. After baseline angiography was performed, the case was discussed by his referring motorbike courier, Dr. Tenorio, as well as with the patient's family. Also given multiple lesions in right , circumflex coronary artery and a distal LAD lesion, we also discussed CABG as an option. 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 We decided to treat circumflex. 6-Citizen [place] XB 3.0 guide was used to engage the left main coronary ostium. A 0.014 [place] wire was passed across the proximal circumflex into the 1st obtuse marginal branch. Predilatation was performed using a 2.5 x 15 balloon. Then, we deployed a 2.5 x 16 Synergy stent. This was post-dilated with a 2.75 x 15 noncompliant at 24 atmospheres. Final angiography showed good stent result in the proximal circumflex into the 1st obtuse marginal branch. The [place] circumflex stayed open. There were no complications. [...] P/Gage Barahona M.D. Date Trans: 03/01/2018 03:16 A/katelin [id number] cc: JYOTI Villalobos [address] [facility] [address] Frantz Conley M.D. [address] [address] Frantz Tenorio M.D. [address] [address] Normal [facility] History and Physicalon 02-28 History and Physical MR#: [id number] [facility] Pt. Name: Pankaj Payne Admitted: 02/28/2018 Date of : 1945 Attending [...] P/Hill Lopez M.D. Date Trans: 02/28/2018 04:44 P/katelin [id number] Normal [facility] Coding Summary.on 02-26-2018 Coding Summary. CODING DATE: 018 FINAL [facility] STATUS: Home (Routine DC) PAYOR: Medicare APC DESCRIPTION 5491 Level 1 Intraocular Procedures ADMIT DX: REASON FOR VISIT DX: H25.11 Age-related nuclear cataract, right eye FINAL DX: PRINCIPAL: H25.11 Age-related nuclear cataract, right eye SECONDARY: H25.041 Posterior subcapsular polar age-related cataract, right eye E03.9 Hypothyroidism, unspecified PYMT PROC APC STAT DESCRIPTION DOCTOR NAME DATE 16566 5491 J1 Extracapsular cataract Hardeep Fraga DO [...] Lashae Caldwell Date Saved: 02/26/2018 04:03 pm [facility] Main OR Intraoperative Recor don 02-26-2018 Main OR Intraoperative Record IntraOp Document Type FT Summary Primary Physician: Hardeep Fraga DO Finalized Date/Time: 02/26/18 14:08:09 Pt. Name: PANKAJ PAYNE D.O.B./Sex: 1945 Male Med Rec #: [id number] Physician: Hardeep Fraga DO Financial #: [id number] Pt. Type: A Room/Bed: [place] [address] Admit/Disch: 02/25/18 08:23:00 - 02/25/18 12:00:00 Institution: [...] Case Attendee Hardeep Fraga DO RN, Arnold ALEGRIAN, RN, Sussy Role Performed Surgeon - Primary Superintendent [employer]munition Storage - Primary Superintendent Ammunition Storage - Primary Time In 02/25/18 11:00:00 02/25/18 11:00:00 02/25/18 11:00:00 Time Out 02/25/18 11:18:00 02/25/18 11:18:00 02/25/18 11:18:00 Procedure CATARACT EXTRACTION W/ CATARACT EXTRACTION W/ CATARACT EXTRACTION W/ INTRAOCULAR LENS(Right) INTRAOCULAR LENS(Right) INTRAOCULAR LENS(Right) Comments Last Modified By: Arnold Moreno RN, RN, Kail M Tinker RN, Kail M 02/25/18 11:17:52 02/25/18 11:17:52 02/25/18 11:17:52 Entry 4 Entry 5 Case Attendee Smith ARZOLA, Zoila Szymanski CST, Anah R Role Performed Scrub - Primary Scrub - Other Time In 02/25/18 11:00:00 02/25/18 11:00:00 Time Out 02/25/18 11:18:00 02/25/18 11:18:00 Procedure CATARACT EXTRACTION W/ CATARACT EXTRACTION W/ INTRAOCULAR LENS(Right) INTRAOCULAR LENS(Right) Comments Last Modified By: Tiffanie DAMON, Arnold Nathan RN 02/25/18 11:17:52 02/25/18 11:17:52 Perioperative Protocols FT [...] Moreno RN, Weisenburger BSN, RN, Smith Hi CST, Nessa Bhardwaj CST, Anah R Time Out Complete 02/25/18 11:02:00 Outcomes Met? [...] tissue Entry 1 Skin Integrity Warm, Dry, [place], Unable Outcomes Met? Yes to Visualize Last Modified By: Arnold Moreno RN 02/25/18 10:07:22 Post-Care Text: The patient is free from signs and symptoms of injury caused by extraneous objects General Comments: pt partially clothed, unable to assess all of skin/ hetal damon Patient Positioning FT Pre-Care Text: Identifies physical [...] Instruments Status Correct Correct Time By Ruffing FRIT MIXER, Zoila E Ruffing FRIT MIXER, Zoila E Outcomes Met? Yes Yes Last [...] Hair Removal Methods Not Indicated By Clark MARAVILLA, RN, Outcomes Met? Yes Sussy Last Modified [...] RN Patient Status Stable Skin. Condition Warm, [place], Dry Airway Maintenance Oxygen in Use? No Outcomes Met? Yes Last Modified By: Arnold Moreno RN 02/25/18 10:11:00 Post-Care Text: The patient is free from signs and symptoms of injury related to transfer/transport General Comments: asu called, transported to asu by or transporter/ heriinkleti rn Dressing/Packing FT Pre-Care Text: Administers care to [...] safely administered during the perioperative period For [facility] please see scanned medication reconcilliation form for medications used at the field during the procedure. Implant Log FT Pre-Care Text: Records devices implanted during the operative or invasive procedure Entry 1 Implant/Explant Implant Implant Identification Description ROSENDA [id number] 12.50MM Serial Number [id number] 13.50 [[id number]][F] Lot Number [id number] F[employer] Catalog ?# [id number][F] Expiration Date 05/23/19 Usage Data Implant Site right eye Quantity 1 Outcomes Met? Yes Last Modified By: Arnold Moreno RN 02/25/18 11:08:01 Post-Care Text: The patient is free from signs and symptoms of injury caused by extraneous objects Case Comments Finalized By: Elayne Agosto CST Document Signatures Signed By: Arnold Moreno RN 02/25/18 11:18 Elayne Agosto CST 02/26/18 14:08 Normal [facility] History and Physicalon 02-25 History and Physical [...] from previously dictated.PHYSICAL EXAMINATION: Unchanged from previously dictated.ASSESSMENT/PLAN: Visually significant cataract, right eye. After risks,benefits, [...] in the near future.Hardeep Fraga D.O.aekDictated: 02/24/2018 #[id number] 02/25/2018 #[id number]: Hardeep Fraga D.O. Normal [facility] Comment on above: Result Comment: Elec tronically Signed By: Hardeep Fraga DO\.br\Date and Time Signed: 02/25/18 10:24 EST Inpatient Patient Summaryon 02-25-2018 Inpatient [facility] Dis[facility] InstructionsPERSON INFORMATION Name: PANKAJ PAYNE PHYSICIANS Admitting Physician: Hardeep Fraga DOAttending Physician: Hardeep Fraga DO PCP: FRANTZ CONLEY MD BDischarge Diagnosis: Cataract Comment: PATIENT EDUCATION INFORMATIONInstructions:M edication Leaflets:Follow up:With: Address: When: Hardeep Fraga [facility] [address] [place] [address] Business (1) Within 1 to 2 days MEDICATION LISTComment: Normal [facility] Main OR PACU II Recordon Main OR PACU II Record PACU Phase II Doc ument Type FT Summary Primary Physician: Hardeep Fraga DO Finalized Date/Time: 02/25/18 12:33:41 Pt. Name: PANKAJ PAYNE/Sex: 1945 Male Med Rec #: [id number] Physician: Hardeep Fraga DO Financial #: [id number] Pt. Type: A Room/Bed: [place] [address] Admit/Disch: 02/25/18 08:23:55 - Institution: Case Times [...] By: Lissa Pope RN 02/25/18 12:33 Normal [facility] Main OR Preoperative Recordo n 02-25-2018 Main OR Preoperative Record PreOp Document Type FT Summary Primary Physician: Hardeep Fraga DO Finalized Date/Time: 02/25/18 11:05:22 Pt. Name: PAYNEPANKAJ/Sex: 1945 Male Med Rec #: [id number] Physician: Hardeep Fraga DO Financial #: [id number] Pt. Type: A Room/Bed: [place] [address] Admit/Disch: 02/25/18 08:23:55 - Institution: Case Times [...] By: Arnold Moreno RN 02/25/18 11:05 Normal [facility] Main OR Preoperative Record Holding Area Document Type FT Summary Primary Physician: Hardeep Fraga DO Finalized Date/Time: 02/25/18 08:46:23 Pt. Name: PANKAJ PAYNE /Sex: 1945 Male Med Rec #: [id number] Physician: Hardeep Fraga DO Financial #: [id number] Pt. Type: A Room/Bed: [address] [address] Admit/Disch: 02/25/18 08:23:55 - Institution: Case Times [...] By: Lissa Pope RN 02/25/18 08:46 Normal [facility] Patient Education - Texton 1 04-28-2017 Patient Education - Text Normal [facility] Progress Note-Physicianon Protein mass conc Patient: PANKAJ [...] Blood Loss: 0 ml. Complications: None. Normal [facility] Comment on above: Result Comment: Elec tronically Signed By: Hardeep Fraga DO\.br\Date and Time Signed: 02/25/18 11:17 EST Operative Reporton 8 Operative Report Date of Surgery: 02/11/2018SURGEON: [...] day for postoperative care.Hardeep Fraga D.O.lkrDictated: 02/11/2018 #[id number]: 02/12/2018 #[id number]: Hardeep Fraga D.O. [facility] Comment on above: Result Comment: Elec tronically Signed By: Hardeep Fraga DO\.br\Date and Time Signed: 02/17/18 08:38 EST Coding Summary.on 02-12-2018 Coding Summary. CODING DATE: 018 FINAL [facility] DSC STATUS: Home (Routine DC) PAYOR: Medicare APC DESCRIPTION 5491 Level 1 Intraocular Procedures ADMIT DX: REASON FOR VISIT DX: H25.13 Age-related nuclear cataract, bilateral FINAL DX: PRINCIPAL: H25.13 Age-related nuclear cataract, bilateral SECONDARY: H25.043 Posterior subcapsular polar age-related cataract, bilateral E03.9 Hypothyroidism, unspecified PYMT PROC APC STAT DESCRIPTION DOCTOR NAME DATE 95665 5491 J1 Extracapsular cataract Hardeep Fraga DO [...] Abbasi Revised Date Saved: 02/12/2018 11:05 am [facility] Main OR Preoperative Recordo n 02-12-2018 Main OR Preoperative Record Holding Area Document Type FT Summary Primary Physician: Hardeep Fraga DO Finalized Date/Time: 02/12/18 07:26:59 Pt. Name: PANKAJ PAYNE Rishabh Rodarte./Sex: 1945 Male Med Rec #: [id number] Physician: Hardeep Fraga DO Financial #: [id number] Pt. Type: A Room/Bed: [place] [address] Admit/Disch: 02/11/18 08:31:00 - 02/11/18 12:00:00 Institution: [...] HEMANT Macdonald RN, Andrea 02/12/18 07:26 Normal [facility] History and Physicalon 02-11 History and Physical [...] He denies.PAST MEDICAL HISTORY: Fatty liver and hypothyroidism.PSYCHOSOCI AL HISTORY: He denies tobacco, alcohol, or recreational drugabuse.SYSTEMIC MEDICATIONS:1. Fluzone.2. Levothyroxine.ALLERGIES: He denies.REVIEW OF SYSTEMS: No pertinent positives.PHYSICAL EXAMINATIONVITAL SIGNS: Blood pressure is measured at 117/77 with a respiration rateof 12 and pulse of 75.GENERAL: He is awake, alert and oriented times three, well developed, wellnourished, in no acute distress.HEART: Regular rate and rhythm.LUNGS: Clear bilaterally.ABDOMEN: Soft, non-tender, non-distended.EXTREMITIES : No pitting edema.OPHTHALMIC: Ophthalmic examination revealed a [...] vessels, periphery andvitreous were within normal limits bilaterally.ASSESSMENT/PL AN: Visually significant cataract, left eye. After risks,benefits, [...] in the near future.Hardeep Fraga D.O.aekDictated: 02/10/2018 #[id number] 02/11/2018 #[id number]: Hardeep Fraga D.O. [facility] Comment on above: Result Comment: Elec tronically Signed By: Hardeep Fraga DO\.br\Date and Time Signed: 02/11/18 08:10 EST Inpatient Patient Summaryon 02-11-2018 Inpatient Patient Summary [facility] Dis[facility] InstructionsPERSON INFORMATION Name: PAYNE, PANKAJ [place] PHYSICIANS Admitting Physician: Hardeep Fraga DOAttending Physician: Hardeep Fraga DO PCP: FRANTZ CONLEY MD BDischarge Diagnosis: Cataract Comment: PATIENT EDUCATION INFORMATIONInstructions:Z AHLER- After Surgery Eye (Custom)Medication Leaflets:Follow up:With: Address: When: Hardeep Fraga [facility] [place] [address] [facility], [facility] [address] [phone] Business (1) Within 1 to 2 days MEDICATION LISTComment: [facility] Main [facility] Intraoperative Recor don 02-11-2018 Main OR Intraoperative Record IntraOp Document Type FT Summary Primary Physician: Hardeep Fraga DO Finalized Date/Time: 02/11/18 13:09:49 Pt. Name: PANKAJ PAYNE D.O.B./Sex: 1945 Male Med Rec #: [id number] Physician: Hardeep Fraga DO Financial #: [id number] Pt. Type: A Room/Bed: [facility] Admit/Disch: 02/11/18 08:31:00 - 02/11/18 12:00:00 Institution: Case Times FT Entry 1 Patient Times In Room 02/11/18 11:04:00 Out Room 02/11/18 11:24:00 Procedure Times Start 02/11/18 11:11:00 Stop 02/11/18 11:22:00 Anesthesia Times Last Modified By: Elayne Agosto CST 02/11/18 11:24:30 General Comments: 02/11/18 Chart opened to review and send charges Estela Agosto FRIT MIXER Case Attendance FT Entry 1 Entry 2 Entry 3 Case Attendee Hardeep Fraga DO, RN, Rosanna Moreno RN, Arnold Morton Role Performed Surgeon - Primary Superintendent Ammunition Storage - Primary Superintendent Ammunition Storage - Primary Time In 02/11/18 11:04:00 02/11/18 11:04:00 02/11/18 11:04:00 Time Out 02/11/18 11:24:00 02/11/18 11:24:00 02/11/18 11:24:00 Procedure CATARACT EXTRACTION W/ CATARACT EXTRACTION W/ CATARACT EXTRACTION W/ INTRAOCULAR LENS(Left) INTRAOCULAR LENS(Left) INTRAOCULAR LENS(Left) Comments Last Modified By: Siddharth RN, Rosanna Messina RN, Rosanna Vanegas RN 02/11/18 11:24:31 02/11/18 11:24:31 02/11/18 11:24:31 Entry 4 Entry 5 Case Attendee Mayo FRIT MIXER, Mariseal Marcano FRIT MIXER/SANusrat Role Performed Scrub - Primary Scrub - Other Time In 02/11/18 11:04:00 02/11/18 11:04:00 Time Out 02/11/18 11:24:00 02/11/18 11:24:00 Procedure CATARACT EXTRACTION W/ CATARACT EXTRACTION W/ INTRAOCULAR LENS(Left) INTRAOCULAR LENS(Left) Comments Last Modified By: Siddharth DAMON, Rosanna Messina RN, Rosanna Morton 02/11/18 11:24:31 02/11/18 11:24:31 Perioperative Protocols FT [...] Time Out Hardeep Fraga DO, Given Participants Siddharth DAMON, Tiffanie Amaya RN, Krys Mar FRIT MIXER/SA, Mayo Silverio FRIT MIXER, Marisela Rodriguez Time Out Complete 02/11/18 11:08:00 Outcomes Met? Yes Last Modified By: Rosanna Messina RN 02/11/18 11:10:57 Post-Care Text: The patient is free from signs and symptoms of injury caused by extraneous objects General Comments: INTRA OP ABX GIVEN, SEE EMAR. MARISOL PURVIS Allergy Information FT Pre-Care Text: Verifies allergies [...] Yes Primary Surgeon Hardeep Fraga DO Start 02/11/18 11:11:00 Stop 02/11/18 11:22:00 Anesthesia Type [...] UP AND BRAKES LOCKED ON EYE CART. HYUNRN Patient Care Devices FT Pre-Care Text: Implements [...] safely administered during the perioperative period For [facility] please see scanned medication reconcilliation form for medications used at the field during the procedure. Implant Log FT Pre-Care Text: Records devices implanted during the operative or invasive procedure Entry 1 Implant/Explant Implant Implant Identification Description ROSENDA [id number] 12.50MM Lot Number [id number] 17.50 [[id number]][F] Fountain [employer]penser [employer] Catalog ?# [id number] [F] Size 17.5 Expiration Date 09/21/18 Usage Data Implant Site LEFT EYE Quantity 1 Outcomes Met? Yes Last Modified By: Rosanna Messina RN 02/11/18 11:19:54 Post-Care Text: The patient is free from signs and symptoms of injury caused by extraneous objects Case Comments Finalized By: Elayne Agosto CST Document Signatures Signed By: Rosanna Messina RN 02/11/18 11:24 Elayne Agosto CST 02/11/18 13:09 Normal [facility] Main OR PACU II [facility] Main OR PACU II Record PACU Phase II Doc ument Type FT Summary Primary Physician: Hardeep Fraga DO Finalized Date/Time: 02/11/18 12:09:46 Pt. Name: PANKAJ PAYNE/Sex: 1945 Male Med Rec #: [id number] Physician: Hardeep Fraga DO Financial #: [id number] Pt. Type: A Room/Bed: [place] [address] Admit/Disch: 02/11/18 08:31:00 - Institution: Case Times [...] Signed By: Lisa Rubi RN 02/11/18 12:09 Normal [facility] Patient Education - Texton 1 04-13-2017 Patient Education - Text [facility] Progress Note-Physicianon Protein mass conc Patient: [...] Blood Loss: 0 ml. Complications: None. Normal [facility] Comment on above: Result Comment: Elec tronically Signed By: Hardeep Fraga DO\.br\Date and Time Signed: 02/11/18 11:23 EST Vital Signs Date Time Vital Sign Value Performing Clinician Facility 10-23-2023 11:17-0400 Diastolic blood pressure 84 mm[Hg] II Frantz Conley Work Phone: [facility] 10-23-2023 11:17-0400 Heart rate 70 /min II Frantz Conley Work Phone: [facility] 10-23-2023 11:17-0400 Respiratory rate 18 /min II Frantz Conley Work Phone: [facility] 10-23-2023 11:17-0400 SaO2% (BldA) [Mass fraction] 98 % II Frantz Conley Work Phone: [facility] 10-23-2023 11:17-0400 Systolic blood pressure 146 mm[Hg] II Frantz Conley Work Phone: [facility] 10-23-2023 09:10-0400 Body height 157.48 cm II Frantz Conley Work Phone: [facility] 10-23-2023 09:10-0400 Body weight 78.01 kg II Frantz Conley Work Phone: [facility] 09-17-2023 11:02-0400 Body height 165.1 cm II Frantz Conley Work Phone: [facility] 09-17-2023 11:02-0400 Body mass index (BMI) [Ratio] 28.8 kg/m2 II Frantz Conley Work Phone: [facility] 09-17-2023 11:02-0400 Body weight 78.47 kg II Frantz Conley Work Phone: [facility] 09-17-2023 11:02-0400 Diastolic blood pressure 67 mm[Hg] II Frantz Conley Work Phone: [facility] 09-17-2023 11:02-0400 Heart rate 53 /min II Frantz Conley Work Phone: [facility] 09-17-2023 11:02-0400 Systolic blood pressure 114 mm[Hg] II Frantz Conley Work Phone: [facility] 06-20-2023 10:01-0400 Diastolic blood pressure 68 mm[Hg] Crescencio Marin DO Work Phone: [facility] 06-20-2023 10:01-0400 Heart rate 63 /min Crescencio Marin DO Work Phone: [facility] 06-20-2023 10:01-0400 Systolic blood pressure 126 mm[Hg] Crescencio Marin DO Work Phone: [facility] 06-20-2023 10:00-0400 Body height 165.1 cm Crescencio Marin DO Work Phone: [facility] 06-20-2023 10:00-0400 Body mass index (BMI) [Ratio] 30.29 kg/m2 Crescencio Marin DO Work Phone: [facility] 06-20-2023 10:00-0400 Body weight 82.56 kg Crescencio Marin DO Work Phone: [facility] 05-08-2023 10:30-0500 Body height 166.4 cm Frantz Conley MD Work Phone: [facility] 05-08-2023 10:30-0500 Body mass index (BMI) [Ratio] 29.66 kg/m2 Frantz Conley MD Work Phone: [facility] 05-08-2023 10:30-0500 Body weight 82.1 kg Frantz Conley MD Work Phone: [facility] 05-08-2023 10:30-0500 Diastolic blood pressure 66 mm[Hg] Frantz Conley MD Work Phone: [facility] 05-08-2023 10:30-0500 Heart rate 52 /min Frantz Conley MD Work Phone: [facility] 05-08-2023 10:30-0500 SaO2% (BldA) [Mass fraction] 99 % Frantz Conley MD Work Phone: [facility] 05-08-2023 10:30-0500 Systolic blood pressure 120 mm[Hg] Frantz Conley MD Work Phone: [facility] 09-28-2022 10:27-0400 Body temperature 97.8 [degF] II Frantz Conley Work Phone: [facility] 09-28-2022 10:27-0400 Body weight 81.19 kg II Frantz Conley Work Phone: [facility] 09-28-2022 10:27-0400 Diastolic blood pressure 61 mm[Hg] II Frantz Conley Work Phone: [facility] 09-28-2022 10:27-0400 Heart rate 39 /min II Frantz Conley Work Phone: [facility] 09-28-2022 10:27-0400 Respiratory rate 16 /min II Frantz Conley Work Phone: [facility] 09-28-2022 10:27-0400 SaO2% (BldA) [Mass fraction] 97 % II Frantz Conley Work Phone: [facility] 09-28-2022 10:27-0400 Systolic blood pressure 143 mm[Hg] II Frantz Conley Work Phone: [facility] 09-18-2022 10:00-0400 Body height 165.1 cm Mick Branch Other [employer] Other 09-18-2022 10:00-0400 Body mass index (BMI) [Ratio] 29.12 kg/m2 Mick Branch Other [employer] Other 09-18-2022 10:00-0400 Body weight 79.38 kg Mick Branch Other [employer] Other 09-18-2022 10:00-0400 Diastolic blood pressure 76 mm[Hg] Mick Branch Other [employer] Other 09-18-2022 10:00-0400 Systolic blood pressure 113 mm[Hg] Mick Branch Other [employer] Other 08-08-2022 13:49-0400 Body height 165.1 cm II Frantz Conley Work Phone: [facility] 09-19-2021 13:10-0400 Diastolic blood pressure 64 mm[Hg] II Frantz Conley Work Phone: [facility] 09-19-2021 13:10-0400 Heart rate 68 /min II Frantz Conley Work Phone: [facility] 09-19-2021 13:10-0400 Respiratory rate 16 /min II Frantz Conley Work Phone: [facility] 09-19-2021 13:10-0400 SaO2% (BldA) [Mass fraction] 96 % II Frantz Conley Work Phone: [facility] 09-19-2021 13:10-0400 Systolic blood pressure 119 mm[Hg] II Frantz Conley Work Phone: [facility] 09-19-2021 11:54-0400 Body height 165.1 cm II Frantz Conley Work Phone: [facility] 09-19-2021 11:54-0400 Body mass index (BMI) [Ratio] 29.9 kg/m2 II Frantz Conley Work Phone: [facility] 09-19-2021 11:54-0400 Body temperature 98.3 [degF] II Frantz Conley Work Phone: [facility] 09-19-2021 11:54-0400 Body weight 81.64 kg II Frantz Conley Work Phone: [facility] 09-13-2021 15:15-0400 Body height 165.1 cm Mick Branch Other [employer] Other 09-13-2021 15:15-0400 Body mass index (BMI) [Ratio] 29.95 kg/m2 Mick Branch Other [employer] Other 09-13-2021 15:15-0400 Body weight 81.65 kg Mick Branch Other [employer] Other 08-17-2021 12:00-0400 Body temperature 98.01 [degF] Leonard Johnson MD [facility] 08-17-2021 11:15-0400 Heart rate 69 /min Leonard Johnson MD [facility] 08-17-2021 11:15-0400 Respiratory rate 19 /min Leonard Johnson MD [facility] 08-17-2021 11:15-0400 SaO2% (BldA) [Mass fraction] 98 % Leonard [facility] 08-17-2021 10:00-0400 Diastolic blood pressure 80 mm[Hg] Leonard Johnson [facility] 08-17-2021 10:00-0400 Systolic blood pressure 139 mm[Hg] Leonard Johnson [facility] 08-16-2021 21:48-0400 Body height 165.1 cm [facility] 08-16-2021 21:48-0400 Body mass index (BMI) [Ratio] 30.05 kg/m2 Leonard Johnson [facility] 08-16-2021 21:48-0400 Body weight 81.92 kg Leonard [facility] 07-11-2021 11:45-0400 Body height 165.1 cm Mick Branch Other [employer] Other 07-11-2021 11:45-0400 Body mass index (BMI) [Ratio] 30.45 kg/m2 Mick Thaismignonaram Other [employer] Other 07-11-2021 11:45-0400 Body weight 83.01 kg Mick Branch Other [employer] Other 07-11-2021 11:45-0400 Diastolic blood pressure 77 mm[Hg] Mick Branch Other [facility] Other 07-11-2021 11:45-0400 Systolic blood pressure 126 mm[Hg] Mick Branch Other [facility] Other Encounters Encounter Date Encounter Type Care Provider Facility Start: 10-23-2023 Non-patient / Non-visit II Montrell seema Conley Work Phone: [facility] Work Phone: Start: 10-23-2023 End: 10-23-2023 Admission to same day surgery center II Frantz Jarvis Work Phone: [facility] Work Phone: Start: 10-23-2023 End: 10-23-2023 ambulatory II Frantz Conley Work Phone: [facility] Work Phone: Start: 10-21-2023 End: 10-21-2023 ambulatory ROSANNA DALY Not Available Start: 10-01-2023 End: 10-01-2023 Patient encounter procedure II Frantz Conley Work Phone: [facility] [place] Work Phone: Start: 10-01-2023 End: 10-01-2023 ambulatory II Frantz Conley Work Phone: [facility] Work Phone: Start: 09-17-2023 End: 09-17-2023 ambulatory II Frantz Conley Work Phone: [facility] Work Phone: Start: 09-17-2023 End: 09-17-2023 Patient encounter procedure II Frantz Conley Work Phone: [facility] [place] Work Phone: Start: 09-11-2023 End: 09-11-2023 ambulatory FRANTZ B CONLEY Not Available Start: 06-26-2023 End: 06-26-2023 ambulatory [facility] Ambulatory Start: 06-20-2023 End: 06-20-2023 ambulatory [facility] Ambulatory Start: 06-20-2023 End: 06-20-2023 Office outpatient visit 40 minutes Crescencio Arandadon DO Work Phone: [place] [facility] Comment on above: ASHD (arteriosclerot ic heart disease); History of coronary artery stent placement; Ascending aorta dilation (CMS/HCC); Iron deficiency anemia, unspecified iron deficiency anemia type; PVC (premature ventricular contraction); Former cigarette smoker Start: 06-10-2023 End: 06-10-2023 ambulatory FRANTZ CONLEY Not Available Start: 06-05-2023 End: 06-05-2023 ambulatory II Frantz Conley Work Phone: [facility] Work Phone: Start: 06-05-2023 End: 06-05-2023 Patient encounter procedure II Frantz Conley Work Phone: [facility]-Ultrasound [facility] [place] Work Phone: Start: 05-08-2023 Bamboo flowsheet Frantz chiu MD Work Phone: [facility] Start: 05-08-2023 Bamboo flowsheet Frantz chiu MD Work Phone: [facility] Start: 05-08-2023 End: 05-08-2023 Transitional care manage srvc 7 day discharge Frantz Conley MD Work Phone: [facility] Comment on above: Pancytopenia, acquir ed (CMS/HCC) (Primary Dx); Iron deficiency anemia, unspecified iron deficiency anemia type; Other cirrhosis of liver (CMS/HCC); Fatty liver disease, nonalcoholic; Hyperchylomicronemia (CMS/HCC) Start: 05-08-2023 End: 05-08-2023 ambulatory FRANTZ CONLEY Not Available Start: 05-01-2023 End: 05-01-2023 Departed Referred MD Jose Manning Work Phone: [facility]-LAB Path Spec [facility]osp Start: 05-01-2023 End: 05-01-2023 ambulatory Jose Manning [facility] edical Ctr Work Phone: Start: 04-22-2023 End: 04-22-2023 ambulatory FRANTZ CONLEY Not Available Start: 10-04-2022 End: 10-04-2022 ambulatory II Frantz Conley Work Phone: [facility] Work Phone: Start: 10-04-2022 End: 10-04-2022 Patient encounter procedure II Frantz Conley Work Phone: [facility]-Ultrasound [facility] [place] Work Phone: Start: 09-28-2022 End: 09-28-2022 ambulatory II Frantz Conley Work Phone: [facility] Work Phone: Start: 09-28-2022 End: 09-28-2022 Registered Recurring II Frantz Conley Work Phone: [facility]-Cancer Center Work Phone: Start: 09-18-2022 End: 09-18-2022 ambulatory Mick Branch Other [facility] Other Start: 09-18-2022 Patient encounter procedure Mick Branch [facility] Start: 09-17-2022 End: 09-17-2022 ambulatory ARABELLA MURPHY [facility] Start: 11-08-2021 End: 11-09-[address] KARL MENON Facility:[facility] Start: 11-06-2021 End: 11-06-2021 Patient encounter procedure II Frantz Conley Work Phone: [facility]-Respiratory Therapy Start: 10-10-2021 End: 10-10-2021 Patient encounter procedure II Frantz Conley Work Phone: [facility]-CT Scan [facility] [place] Start: 09-20-2021 End: 09-20-2021 Patient encounter procedure II Frantz Conley Work Phone: [facility]-Ultrasound [facility] [place] Start: 09-19-2021 End: 09-19-2021 Admission to same day surgery center II Frantz Conley Work Phone: [facility]-Digestive Health Start: 09-15-2021 End: 09-15-2021 Patient encounter procedure II Frantz Conley Work Phone: [facility]-Doi-[employer] Testing Start: 09-13-2021 End: 09-13-2021 ambulatory Mick Branch Other [employer] Other Start: 09-13-2021 Patient encounter procedure Mick Branch [facility] Start: 08-16-2021 End: 08-17-2021 Evaluation and management of inpatient SHANTANU MARIE [facility] Start: 08-16-2021 End: 08-17-2021 Evaluation and management of inpatient Leonard Johnson MD [facility] CAR 1 Comment on above: Subarachnoid hemorrh age following injury, no loss of consciousness, initial encounter (HCC) (Primary Dx); Facial laceration, initial encounter Start: 08-16-2021 End: 08-16-2021 ambulatory KEILY RENTERIA Facility: Start: 07-12-2021 End: 07-13-2021 ambulatory MICK BRANCH Facility:[facility] Start: 07-11-2021 End: 07-11-2021 ambulatory Mick Branch Other [employer] Other Start: 07-11-2021 FQHC visit new patient Mick Branch [facility] Start: 03-01-2021 End: 03-01-[address] FRANTZ CONLEY Facility:[facility] Start: 02-03-2021 End: 02-03-[address] FRANTZ CONLEY Facility: Start: 10-30-2018 End: 10-31-2018 Patient encounter procedure JOSIAH SCHAFER Facility:[facility] Start: 02-28-2018 End: 03-01-2018 Patient encounter procedure INDIA AHMED Facility:[facility] Start: 02-25-2018 End: 02-25-2018 Patient encounter procedure Hardeep Fraga Facility[facility] Start: 02-11-2018 End: 02-11-2018 Patient encounter procedure Hardeep Fraga Facility:[facility] Procedures Date Procedure Procedure Detail Performing Clinician Start: 10-23-2023 Esophagogastroduodenoscopy II Frantz roman Work Phone: Start: 10-01-2023 Ultrasonography of liver II Frantz Conley Work Phone: Start: 06-26-2023 HOLTER OR EVENT CHILD MONITOR CRESCENCIO ARANDADON Start: 06-20-2023 History of placement of stent for coronary artery disease History of coronary artery stent placement Crescencio Aníbal Tomas DO Work Phone: Start: 06-20-2023 ECG 12-LEAD CRESCENCIO MARIN Start: 06-20-2023 Ecg routine ecg w/least 12 lds w/i&r Crescencio Marin DO Work Phone: Start: 06-05-2023 US scan of spleen II Frantz Conley Work Phone: Start: 04-29-2023 Lipid 1996 panel - Serum or Plasma Mando david Marin DO Work Phone: Start: 10-04-2022 Ultrasonography of liver II Frantz Jarvis Work Phone: Start: 08-13-2022 History of placement [...] Blood count complete auto&auto difrntl wbc Bella Flanenry DO Work Phone: Start: 08-16-2021 Iadna s aureus methicillin resist amp probe tq Pepito Suarez MD Work Phone: Start: 08-16-2021 Ct head/brain w/o contrast material Paramjit Arteaga DO Work Phone: Plan of Treatment Date Care Activity Detail Author Start: 04-29-2028 Lipid panel Lipid Panel [facility] Start: 12-25-2023 End: 12-25-2023 Patient encounter procedure 12/25/2023 10:20 AM EDT Office Visit [facility] [address] [place] [address] Crescencio Marin, [address] [place] [address] [facility] Start: 11-06-2023 End: 11-06-2023 Patient encounter procedure 11/06/2023 11:00 AM EDT Office Visit [facility] [address] [facility] [address] [place] [address] Frantz Conley MD [address] [facility] [address] [place] [address] [facility] Start: 10-23-2023 [facility] Start: 10-21-2023 End: 10-21-2023 Patient encounter procedure 10/21/2023 11:00 AM EDT Office Visit [facility] [address] [facility] [address] [place] [address] Frantz Conley MD [address] [facility] [address] [place] [address] [facility] Start: 09-17-2023 Ywlve-2-vpkqdzswmeg. 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 limited [facility] Work Phone: Comment on above: Expected: 05/08/2023 , Expires: 05/08/2024 Start: 05-08-2023 End: 05-08-2023 Patient encounter procedure 05/08/2023 10:30 AM EST Office Visit [facility] [address] [facility] [address] [place] [address] Frantz Conley MD [address] [facility] [address] [place] [address] Arrived [facility] Comment on above: Arrived Start: 11-23-2022 COVID-19 Vaccine () COVID-19 Vaccine ( season) [facility] Start: 11-08-2022 Echocardiography Echocardiogram [facility] Start: 05-01-2022 Lipid panel Lipids [facility] Start: 09-19-2021 [facility] Work Phone: Start: 08-24-2021 End: 08-17-2022 CT HEAD WO CONTRAST CT HEAD WO CONTRAST Imaging Routine Subarachnoid hemorrhage following injury, no loss of consciousness, initial encounter (HCC) Expected: 08/24/2021, Expires: 08/17/2022 [facility] Comment on above: Expected: 08/24/2021 , Expires: 08/17/2022 Start: 09-30-2019 Pneumococcal 65+ yea rs Vaccine (2 - PCV) Pneumococcal 65+ years Vaccine (2 - PCV) [facility] Start: 09-30-2019 Pneumococcal Vaccine : 65+ Years (2 - PCV) Pneumococcal Vaccine: 65+ Years (2 - PCV) [facility] Start: 2006 Hepatitis B Vaccines (1 of 3 - Risk 3-dose series) Hepatitis B Vaccines (1 of 3 - Risk 3-dose series) [facility] Start: 07-31-1991 Screening for malign ant neoplasm of colon [facility] Start: 1968 DTaP/Tdap/Td Vaccine s (1 - Tdap) DTaP/Tdap/Td Vaccines (1 - Tdap) [facility] Start: 1965 DTaP/Tdap/Td vaccine (1 - Tdap) DTaP/Tdap/Td vaccine (1 - Tdap) [facility] Start: 1965 Hepatitis A Vaccines (1 of 2 - Risk 2-dose series) Hepatitis A Vaccines (1 of 2 - Risk 2-dose series) [facility] Start: 1964 Diabetes mellitus screening Diabetes Screening [facility] Start: 1964 Hepatitis C screening B ON [facility] Start: 1958 Depression Screen Depression Screen [facility] Start: 1946 Creatinine measurement Creatinine Le tara [facility] Start: 1946 Medicare Annual Well ness Visit Medicare Annual Wellness Visit (AWV) [facility] Start: 1946 Potassium measurement Potassium Leve l [facility] Start: 1946 Thyroid stimulating hormone measurement TSH Level [facility] Oxygen therapy [[facility] Data Set] Initiate Oxygen Therapy Protocol Respiratory Care Routine As Needed until discontinued starting 08/16/2021 [employer] Work Phone: Comment on above: As Needed until disc ontinued starting 08/16/2021 Patient Education Hemorrhoids Co ross polyps Esophageal varices Diverticulosis Know your Meds [facility] Work Phone: End: 08-16-2021 Speech and language therapy regime Speech language pathology evaluation 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 One Time for 1 Occurrences starting 08/16/2021 until 08/16/2021 [employer] Work Phone: Comment on above: One Time for 1 Occur rences starting 08/16/2021 until 08/16/2021 [facility] Immunizations Immunization Date Immunization Notes Care Provider [facility] 01-04-2023 Influenza, Seasonal, Quadrivalent, Adjuvanted Frantz Conley MD Work Phone: [facility] 03-21-2022 Influenza, High-dose Seasonal, Quadrivalent, Preservative Free Frantz Conley MD Work Phone: [facility] Work Phone: 03-01-2021 COVID-19 Ad26.COV2.S (Caleb) II Frantz Conley Work Phone: [facility] 01-06-2021 influenza, high dose seasonal, preservative-free Frantz Conley MD Work Phone: [facility] 01-06-2021 Influenza, High-dose Seasonal, Quadrivalent, Preservative Free Frantz Conley MD Work Phone: [facility] 05-26-2020 COVID-19 mRNA-1273 (Moderna) LIBBY Conley Work Phone: [facility] 04-28-2020 COVID-19 mRNA-1273 (Moderna) LIBBY Conley Work Phone: [facility] 01-06-2020 Influenza, High-dose Seasonal, Quadrivalent, Preservative Free Frantz Conley MD Work Phone: [facility] 08-18-2019 zoster vaccine recombinant Frantz Conley MD Work Phone: [facility] 04-10-2019 zoster vaccine recombinant Frantz Conley MD Work Phone: [facility] 02-06-2019 influenza, high dose seasonal, preservative-free Frantz Conley MD Work Phone: [facility] 09-29-2018 pneumococcal polysaccharide vaccine, 23 valent Frantz Conley MD Work Phone: [facility] 01-14-2018 Influenza, High-dose Seasonal, Quadrivalent, Preservative Free Frantz Conley MD Work Phone: [facility] 12-03-2016 Influenza, High-dose Seasonal, Quadrivalent, Preservative Free Frantz Conley MD Work Phone: [facility] 03-28-2015 influenza, seasonal, injectable, preservative free Frantz Conley MD Work Phone: [facility] 01-10-2015 seasonal influenza, intradermal, preservative free Frantz Conley MD Work Phone: [facility] Payers Date Payer Category Payer [employer] ( [employer] others) [id number] 2023 Self-pay [id number] 2022 [employer] ( and others) [id number] 2015 [employer] ( and others) [id number] 2011 Medicare [id number] 71.315 1959 [employer] ( and others) [id number] 1959 Medicare [id number] 1945 [facility] [id number] [id number]7 1946 Unknown [id number] 2.16.840.1.965068.3.579.2.727 1946 Unknown [id number] 2.16.840.1.943996.3.579.2.647 1946 Unknown [id number] 2.16.840.1.146984.3.579.2.647 1946 Unknown [id number] 2.16.840.1.951612.3.579.2.175 1946 Unknown [id number] 2.840.1.532120.3.579.2.593 1946 Unknown [id number] 2.840.1.244056.3.579.2.593 1946 Unknown [id number] 2.840.1.763578.3.579.2.593 1946 Unknown [id number] 2.840.1.619752.3.579.2.593 1946 Unknown [id number] 2.840.1.278221.3.579.2.593 1946 Unknown [id number] 2.840.1.271595.3.579.2.1244 1946 Unknown [id number] 2.840.1.948645.3.579.2.1244 1946 Unknown [id number] 2.840.1.136544.3.579.2.1259 1946 Unknown [id number] 2.16840.1.057634.3.579.2.1259 1946 Unknown [id number] 2.16840.1.213431.3.579.2.1259 1946 Unknown [id number] 2.16840.1.743626.3.579.2.1259 1946 Unknown [id number] 2.16.840.1.194570.3.579.2.1259 Unknown [id number] 2.16.840.1.527922.3.579.2.531 Unknown [id number] 2.16.840.1.802077.3.579.2.531 Unknown [id number] 2.16.840.1.373869.3.579.2.531 Unknown [id number] 2.16.840.1.843054.3.579.2.531 Unknown [id number] 2.16.840.1.538526.3.579.2.531 Social History Date Type Detail Facility Start: 08-16-2021 Tobacco smoking status NHIS Tobacco smoking consumption unknown [employer] Start: 08-16-2021 End: 06-20-2023 Alcohol intake Lifetime non-drinker (finding) [employer] Phone: Start: 08-16-2021 History SDOH Alcohol Frequency 1 [employer] Phone: Start: 1945 Sex Assigned At Not on file [employer] Phone: Start: 08-06-2021 End: 06-20-2023 Exposure to SARS-CoV-2 (event) Not sure [employer] Phone: Start: 04-15-2023 End: 06-20-2023 Sex Assigned At [facility] Start: 05-10-2021 End: 10-23-2023 Tobacco smoking status NHIS Never smoked tobacco (finding) [facility] Start: 1945 Sex Assigned At Male [facility] Start: 08-16-2022 End: 06-20-2023 Tobacco use and exposure Smokeless tobacco non-user [facility] Start: 04-22-2023 End: 05-08-2023 Alcohol intake Ex-drinker (finding) [facility] Start: 04-15-2023 End: 06-20-2023 History of Social function [facility] Within the last year , have you been afraid of your partner or ex-partner? No [facility] How often do you get together with friends or relatives? Patient refused [facility] Do you belong to any clubs or organizations such as baptist groups, unions, fraternal or athletic groups, or school groups? Yes [facility] Are you now , , , , never or living with a partner? [facility] How often to you hav e a drink containing alcohol? Never [facility] (I/We) worried wheplacido er (my/our) food would run out before (I/we) got money to buy more. Never true [facility] Start: 08-20-2022 Alcohol Comment caffeine intake: 1-2 cups per day. [facility] Start: 06-20-2023 Tobacco smoking status NHIS Ex-smoker [facility] Work Phone: End: 03-25-2003 History of tobacco use Current smoker [facility] Work Phone: End: 03-25-2003 History of tobacco use Cigarette Smoker [facility] Work Phone: Goals Date Patient Goal Desired Activity /State Clinical Notes 05-23-2021 to 10-23-2023 Crescencio Marin, - 06/20/2023 10:00 AM EDTPatient InstructionsFrantz Conley MD - 05/08/2023 10:30 AM EST Note Date & Type Note Facility 10-23-2023 Procedure note [facility] 06-20-2023 History of Present illness Narrative Cardiology [...] with PCI of the ostial/proximal circumflex at [facility] he says around 3 years ago [...] bedtime., Disp: , Rfl: fish oil concentrate ([place]-3) 120-180 mg capsule, Take 1 capsule (1,000 [...] Scribe Attestation By signing my name below, I, David Morocho LPN attest that this documentation has been prepared [...] discussion and plan. documented in this encounter [facility] Work Phone: 06-20-2023 Instructions Bernadette Santillan LPN [...] instructions on exercise. documented in this encounter [facility] Work Phone: 05-08-2023 History of Present illness Narrative Subjective Patient ID: Pankaj Payne is a 77 y.o. male who presents for Follow-up ([facility] stay: admitted 04/30/23 dx: anemia discharged home 05/01/23 follow up with hematology was 05/07/23) and Anemia. Flowsheet Row Telephone from 05/03/2023 in [facility] with Frantz Conley MD Discharge Information ED or Hospital Discharge? Hospital Patient has been contacted within two business days of discharge Yes Discharge Date 05/01/23 Discharge Hospital [facility] Discharged To: Home Setting Engagement Call Start [...] by mouth 1 (one) time each day. [place]-3 Fatty Acids (Fish Oil) 1000 MG capsule [...] was discussed with Dr Sevilla, Hematology at [facility], he is following the patient and did see him in the hospital. Iron deficiency anemia, unspecified iron deficiency anemia type - Ambulatory referral to Gastroenterology; Future Other cirrhosis of liver (CMS/HCC) - US LIVER; Future Fatty liver disease, nonalcoholic - US LIVER; Future Hyperchylomicronemia (CMS/HCC) Follow up in about 4 weeks (around 06/05/2023) for Test/Lab Review. documented in this encounter [facility] 01-17-2023 Note Reviewed recent echo and compared with previous echo and Aortic diameter 12/07/22 TTE 11/08/21 TTE 2019: Ao Diam (sinus): 3.80 cm (1.4 cm - 2.6 cm) Ao Ascendin.60 cm (< 3.5 M, <3.2 F) Ao Arch: 3.30 cm Arabella Murphy ARROW POINT ATT[employer]ER Division of Cardiology, [facility]- [phone] Pager- [phone] Email- [email or web address] 09-18-2022 Evaluation note Encounter Date Diagnosis Assessment Notes Aug, Cirrhosis (ICD-10 - K74.60) Dr. Conley (PCP) will order lab work Repeat fibroscan in 2024 Rto 1 yr Aug, NAFLD (nonalcoholic fatty liver disease) (ICD-10 - K76.0) Aug, PLASCENCIA (nonalcoholic steatohepatit is) (ICD-10 - K75.81) [employer] Other 06-26-2023 NoteHypertension is well controlled Continue lifestyle modifications- low sodium diet, heart healthy diet and regular activity.[facility]06-26-2023 NoteHTN is well controlled F/U with PCP for monitoring of renal functionUnSCCI Hospital [facility] 09-17-2022 NoteCoronary artery disease is stable, no concerning symptoms Continue GDMT- ASA, plavix, lipitor continue risk factor modifications- heart healthy diet, regular exercise as tolerated and continue all medications.[facility] 09-17-2022 NoteMild dilatation on last echo- will repeat echo at 1 year- Oct- NovUnSCC[facility] Hospital [facility]06-26-2023 NoteContinue statin [facility]06-26-2023 NoteStable and pt without any symptomsUnSCCI Hospital [facility]06-26-2023 NoteUTP CARDIOLOGY PROGRESS NOTE HPI: Pankaj Payne [...] DAILY 90 tablet 3 fish oil concentrate ([place]-3) 120-180 mg capsule Take 1,000 mg by [...] noted. 4. Outpatient followup with Dr. Tenorio, [place] [facility]. No echocardiogram results found for the past 12 months Assessment/Plan: PVC's (premature ventricular contractions) Stable and pt without any symptoms Mixed hyperlipidemia Continue statin Dilatation of aorta (CMS/HCC) Mild dilatation on last echo- will repeat echo at 1 year- Oct-Nov Coronary artery disease involving [place] coronary artery of [place] heart without angina pectoris Coronary artery disease [...] healthy diet and regular activity. RTC 1 yearPark[facility]05-17-2023 Consult note Author Zoila Castorena [facility] August 08, 2022 3:09pm Note Date/Time August 08, 2022 2:08p [facility] [place] [address] Hem/Onc Consult Note - OP Signed Patient: Pankaj Payne MR#: [id number] : 1945 Acct:[id number] Age/Sex: 77 / M Type: REG RCR [...] smoking cigars while he was in the [employer] but was not a regular cigarette smoker. [...] PO QAM 04/26/21 [History Confirmed 08/08/22] omega 9-xsq-doi-fish oil 1,000 mg (120 mg-180 mg) capsule [...] for coordination of care (as documented) and kuhm-of-puef counseling of patient and/or family. Dictated By: Zoila Castorena MD DD/ [id number] Signed By: <Electronically signed by MD Zoila Castorena> 08/08/22 2873 [facility] Work Phone: 1(852) 453-893006-22-2022 Evaluation note* Encounter Date Diagnosis Assessment Notes Treatment Notes Treatment Clinical Notes Aug, Fatty liver (ICD-10 - K76.0) ENCOURAGED WATCHING DIET, EXERCISE AND WEIGHT LOSS. WILL NEED TO MONITOR IMAGING EVERY 6 MONTHS. PROCEED WITH EGD Aug, Other cirrhosis of liver (ICD-10 - K74.69) Aug, NAFLD (nonalcoholic fatty liver disease) (ICD-10 - K76.0) Aug, PLASCENCIA (nonalcoholic steatohepatitis) (ICD-10 - K75.81) [employer] Other 05-26-2022 Hospital Discharge instructions* Instructions* Pato Grissom, PHOTO PRINT SPECIALIST - [employer]INT [employer] - 08/17/2021 Images from the original note [...] called to the trauma nurse line at [phone] and please leave a message. Trauma is [...] Injury Discharge Instructions Thank you for choosing [facility] and [facility] for your recovery needs. The following instructions will help to ensure your comfort and that you are wellprepared for your recovery. Follow-up Visit: The office is located at: [facility] [address], [address], [place] [address] [x] Please have a CT scan of your head done prior to this appointment. Please also call your primary care physician to schedule an appointment for further evaluation and care. You can obtain CT head closer to home and have them electronically send the imaging to [facility] so we can see the scan You can follow up with Neurosurgery closer to home of you can do virtual visit with Porsche the outpatient [employer]INT ATT[employer]ER Ok to restart your ASPIRIN today 08/17 [...] medications. YOU SHOULD CALL THE OFFICE AT [phone] IF YOU HAVE ANY OF THE FOLLOWING: [...] the emergency department. 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 [...] Outcome: Verbalized understanding;Continued education needed AM-PAC Score [facility] Inpatient Daily Activity Raw Score: 24 (08/17/211306) AM-PAC Inpatient ADL T-Scale Score : 57.54 (08/17/211306) ADL Inpatient CMS 0-100% Score: 0 (08/17/211306) ADL Inpatient [facility] G-Code Modifier : CH (08/17/211306) Goals Therapy [...] Date: 08/16/2021 Hospital day 1 Other vehicle: [employer] Past Medical History: Diagnosis Date Hyperlipidemia Hypertension [...] chloride sodium chloride 75 mL/hr at 08/17/21 0457 PRN Meds:sodium chloride flush, sodium chloride, ondansetron [...] SYSTEM PROVIDED HISTORY[facility] PROVIDED HISTORY: SAH and SDH Decision [...] SYSTEM PROVIDED HISTORY: Impact with object riding computer applications instructor TECHNOLOGIST PROVIDED HISTORY: Impact with object riding computer applications instructor Decision Support Exception - unselect if not [...] recent progress note documented in this encounterBON Style on Screen Phone: [phone]) 783-208904-19-2022 Evaluation note* Encounter Date Diagnosis Assessment Notes Treatment Notes Treatment Clinical Notes Jun, Cirrhosis (ICD-10 - K74.60) [employer] Other 03-01-2022 History general Narrative - Reported* Type Description Date Surgical History cholecystectomy 05/2021 Surgical History heart stent Surgical History cataracts, bilaterally [employer] Other 03-01-2022 History general Narrative - Reported* Type Description Date Surgical History cholecystectomy 05/2021 Surgical History heart stent Surgical History cataracts, bilaterally Hospitalization History see surgical hx [employer] Other Evaluation note* Diagnosis SAH (subarachnoid hemorrhage) (HCC)- Primary Subarachnoid hemorrhage Subarachnoid hemorrhage following injury, no loss of consciousness, initial encounter (HCC) Facial laceration, initial encounter Subdural hematoma (HCC) Subdural hemorrhage documented in this encounter [facility] Style on Screen Phone: evaluation noteNo assessment information available [facility] [employer] Work Phone: Evaluation note* Diagnosis Onset Date Resolution Status 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 Pancytopenia, acquired chron ic [facility] Work Phone: Evaluation note* Diagnosis Pancytopenia, acquired (CMS/HCC)- Primary Pancytopenia Iron deficiency anemia, unspecified iron deficiency anemia type Other cirrhosis of liver (CMS/HCC) Fatty liver disease, 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 in this encounter [facility] Diagnosis ASHD (arteriosclerotic heart disease) Coronary atherosclerosis of unspecified type of vessel, [place] or graft History of coronary artery stent placement Ascending aorta dilation (CMS/HCC) Thoracic aneurysm without mention of rupture Iron deficiency anemia, unspecified iron deficiency anemia type PVC (premature ventricular contraction) Other premature beats Former cigarette smoker Personal history of tobacco use, presenting hazards to health documented in this encounter [facility] Work Phone: Evaluation note* Diagnosis Onset Date Resolution Status Cirrhosis, nonalcoholic acut e Non-alcoholic fatty liver disease acute Nonalcoholic steatohepatitis (PLASCENCIA) acute [facility] Work Phone: History and physical note Author Mick Branch [facility] October 23, 2023 10:14am Note Date/Time October 23, 2023 10:1 4am [facility] [address] [place] [address] Gastroenterology H&P Signed Patient: Pankaj Payne MR#: [id number] : 1945 Acct:[id number] Age/Sex: 78 / M Adm Date: 4 Loc: Room: Type: [facility] Attending Dr: Mick Branch MD Copies to: MD Frantz Dobbins II, MD~ Date of Service: 10/23/2023 HISTORY & PHYSICAL: Patient's history with special attention to the cardiovascular, pulmonary systems and the current problem was reviewed with the patient immediately prior to the procedure. Present medications and doses reviewed in the EMR. Allergies and pertinent laboratory tests were also reviewedat this time in the EMR. The physical examination, as below, was then performed. 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 Family history of GI malignancy? no PHYSICAL EXAMINATION Mouth and Pharynx : moist mucus membranes, normal dentition Cardiac: regular rate, regular rhythm Pulmonary: normal respiratory effort, able to speak in complete sentences Neurological: alert and oriented x3, no focal deficits noted Abdomen: Abdomen soft, non-tender REVIEW OF SYSTEMS Constitutional: Denies malaise, fevers Cardiovascular: Denies chest pain, palpitations Respiratory: Denies shortness of breath, wheezing Gastrointestinal: Per HPI Genitourinary: Denies dysuria, polyuria Musculoskeletal: Denies joint swelling, joint stiffness Neurological: Denies numbness, tingling Integumentary: Denies rashes, skin lesions Endocrine: Denies fatigue, weight loss Written informed consent obtained from the patient. Risks (including but not limited to perforation, infection, bloating, bleeding, need for emergent surgeryand loss of life), benefits and alternatives explained and questions answered. The patient verbalized understanding. Based on history patient is an appropriate candidate for the procedure. Mick Branch MD Documented By: Mick Branch MD 10/23/23 1013 Signed By: <Electronically signed by Mick Branch MD> 10/23/23 1014 [facility] Work Phone: Hospital Discharge instructions Additional Instructions DISCHARGE INSTRUCTIONS FOR UPPER ENDOSCOPY WHAT TO EXPECT: - You may feel full, gassy or cramping after your procedure. In some cases, this may be from a few hours to a day. Walking may help relieve the discomfort. - Your throat may feel sore today from the scope that the doctor passed through your throat to visualize your stomach. Take a throat lozenge or suck on ice to ease the discomfort. - You may notice some streaks of blood in your sputum if the doctor has taken a biopsy. - You should begin to recover from anesthesia within 1 hour of the procedure, however may feel groggy for the next 24 hours. DO's AND DON'Ts: - Call your doctor right away if you have a hard abdomen, severe pain, vomiting or if you cough up large amounts of blood. - Call your doctor if you develop any rashes, hives or difficulty breathing. - If you take 81 mg aspirin for your heart it is safe to resume this medication. - If you take other blood thinner medications your doctor will instruct you when these can safely be resumed. - Do NOT drive for 24 hours. - Do NOT operate machinery such as power tools, lawn mowers, snow blowers, sewing machines, etc. for 24 hours. - Avoid alcoholic beverages and drugs for allergies, nerves, or sleep. - Do NOT stay alone. Do NOT leave your child unattended. - Do NOT make important personal or business decisions or sign any legal documents. - Eat solid foods and drink liquids in smaller amounts than usual until normal appetite returns. If you should experience an upset stomach, liquids high in sugar content (soda, Maurice-Aid, non-acid juices) are recommended. - Do NOT smoke. - Do take it easy today. You need not stay in bed, but avoid strenuous activities such as jogging or working out. DISCHARGE INSTRUCTIONS FOR COLONOSCOPY WHAT TO EXPECT: - You may feel full, gassy or cramping after your procedure. In some cases, this may be from a few hours to a day. Walking may help relieve the discomfort. - If you have polyp(s) removed you may note some minor bloody discharge after your first bowel movements. - You should begin to recover from anesthesia within 1 hour of the procedure, however may feel groggy for the next 24 hours. DO's AND DON'Ts: - Call your doctor right away if you have a hard abdomen, sever pain, are passing lots of bright red blood or clots. - Call your doctor if you develop any rashes, hives or difficulty breathing. - Let your doctor know if you have not had a bowel movement by 3 days after your procedure. - If you take 81 mg aspirin for your heart it is safe to resume this medication. - If you take other blood thinner medications your doctor will instruct you when these can safely be resumed. - Do NOT drive for 24 hours. - Do NOT operate machinery such as power tools, lawn mowers, [employer] blowers, sewing machines, etc. for 24 hours. - Avoid alcoholic beverages and drugs for allergies, nerves, or sleep. - Do NOT stay alone. Do NOT leave your child unattended. - Do NOT make important personal or business decisions or sign any legal documents. - Eat solid foods and drink liquids in smaller amounts than usual until normal appetite returns. If you should experience an upset stomach, liquids high in sugar content (soda, Maurice-Aid, non-acid juices) are recommended. - You can resume normal activities tomorrow. FOLLOW UP & RECOMMENDATIONS: -You can restart your Plavix and baby aspirin in 7 days, on 10/30/2023. -Make sure you are taking your omeprazole (Prilosec) twice daily, 30 minutes before your first meal and 30 minutes before your last meal of the day. -Start carvedilol 3.125 mg twice daily. -The GI office will schedule you a follow-up in liver clinic with Dr. Branch in 6 months. -You do not need any further colonoscopies for colorectal cancer screening. -Continue to follow with your stockroom helper Dr. Sevilla. -Notify the doctor if you have any problems. -Follow up with PCP. - Office number [phone].[facility] Work Phone: Reason for referral (narrative)* Consultation (Routine) - Authorized Specialty Diagnoses / Procedures Referred By Contac t Referred To Contact Gastroenterology Diagnoses Iron deficiency anemia, unspecified iron deficiency anemia type Procedures MA OFFICE/OUTPATIENT [facility] 60 MINUTES Frantz Conley MD [address] [facility] [address] [place] [address] Mick Branch MD [address] [facility] [address] [place] [address] Referral ID Status Reason Start Date Expiration Date Visits Requested Visits Authorized [id number] Authorized Specialty Services Required 05/08/2023 11/04/2023 [address] [facility] NarrativePT HERE AT REQUEST OF DR DAY FOR EVALUATION AND TREATMENT OF CIRRHOSIS, REFERRAL NOTE [facility] Other Summary Purpose Family History No Family [...] sister Chronic obstructive pulmonary disease Unk nown Relationship Condition Age at Onset Recorded Date/T tanja brother Malignant neoplasm of lung Unknown mother Disorder of liver Unknown father Chronic obstructive [...] 9:52am Hospital Course Note MR#: [id number] [facility] Pt. Name: Pankaj Payne Admitted: 02/28/2018 Discharged: [...] Referral Specialty Diagnoses / Procedures Referred By Olayinka villegas Referred To Contact Radiology Diagnoses Subarachnoid hemorrhage following injury, no loss of consciousness, initial encounter ([facility]) Procedures CT HEAD WO CONTRAST Pato Grissom, PHOTO PRINT SPECIALIST - ARROW POINT ATTACHER [address] [place] [address] Referral ID Status Reason Start Date Expiration Date Visits Re quested Visits Authorized [id number] Open 08/24/2021 08/24/2022 1 1 Specialty Diagnoses / Procedures Referred By Olayinka t Referred To Contact Cardiology Diagnoses PVC (premature ventricular contraction) Procedures Holter Or Event Casting Machine Service Operator Crescencio Marin, 7[address] [facility] 2, [facility] [address] [place] [address] Referral ID Status Reason Start Date Expiration Date V isits Requested Visits Authorized [id number] Pending Review 06/20/2023 06/19/2024 1 1 Specialty Diagnoses / Procedures Referred By Contac t Referred To Contact Diagnoses PVC (premature ventricular contraction) Procedures ECG 12 Lead Crescencio Marin, DO 7[address] [facility] 2, [address] [place] [address] Referral ID Status Reason Start Date Expiration Date V isits Requested Visits Authorized [id number] Authorized 06/20/2023 06/19/2024 1 1 Specialty Diagnoses / Procedures Referred By Contac t Referred To Contact Cardiology Diagnoses ASHD (arteriosclerotic heart disease) Procedures Follow Up In Cardiology Crescencio Marin, DO [address] [facility] 2, [address] [place] [address] Crescencio Marin, DO [address] [facility] 2, [address] [place] [address] Referral ID Status Reason Start Date Expiration Date V isits Requested Visits Authorized [id number] Authorized 06/20/2023 06/19/2024 1 1 Chief Complaint and Reason for Visit Chief Complaint fatty liver fatty liver K76.0 n28.1 R06.00 Chief Complaint pancytopenia Reason for Visit 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) Pancytopenia, acquired Chief Complaint pancytopenia K74.60 K76.0 K75.81 Reason for Visit 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) Pancytopenia, acquired Chief Complaint Unknown Chief Complaint Unknown d61.818 Chief Complaint 1 year follow up K76.0 K74.60 K75.81 Reason for Visit Cirrhosis, nonalcoho lic Non-alcoholic fatty liver disease Nonalcoholic steatohepatitis (PLASCENCIA) Chief Complaint 1 year follow up K76.0 K74.60 K75.81 K74.60 K76.0 K75.81 Reason for Visit Cirrhosis, nonalcoho lic Non-alcoholic fatty liver disease Nonalcoholic steatohepatitis (PLASCENCIA) Chief Complaint 1 year follow up K76.0 K74.60 K75.81 K74.60 K76.0 K75.81 cirrhosis/Screening cirrhosis/Screening Reason for Visit Cirrhosis, nonalcoho lic Non-alcoholic fatty liver disease Nonalcoholic steatohepatitis (PLASCENCIA) Additional Source Comments (unrecognized sect ion and content) No Status Records FoundNo Status Records FoundNo Status Records FoundNo Status Records FoundNo Status Records FoundNo Status Records FoundNo Status Records FoundNo Status Records FoundNo Status Records Found INFORMATION SOURCE (unrecogn ized section and content) DATE CREATED AUTHOR 03/05/2018 Vicente Livingston [facility] DATE CREATED AUTHOR AUTHOR'S ORGANIZ ATION 11/12/2018 [facility] DATE CREATED AUTHOR AUTHOR'S ORGANIZ ATION 06/08/2021 [facility] d[facility] Specialist DATE CREATED AUTHOR AUTHOR'S ORGANIZ ATION 08/20/2021 [facility] DATE CREATED AUTHOR AUTHOR'S ORGANIZ ATION 11/15/2021 [facility] DATE CREATED AUTHOR AUTHOR'S ORGANIZ ATION 04/06/2023 [facility] DATE CREATED AUTHOR AUTHOR'S ORGANIZ ATION 06/27/2023 [facility] DATE CREATED AUTHOR AUTHOR'S ORGANIZ ATION 10/22/2023 [facility] Specialists EPIC DATE CREATED AUTHOR AUTHOR'S ORGANIZ ATION 11/03/2023 [facility] Reason for Visit (unrecogniz ed section and content) Reason Comments Head Injury Reason Comments Follow-up [facility] stay: admitted dx: anemia discharged home 05/01/23 follow up with hematology was 05/07/23 Anemia Reason Comments New Patient Visit Referral for CAD Specialty Diagnoses / Procedures Referred By Contac t Referred To Contact Diagnoses PVC (premature ventricular contraction) Procedures ECG 12 Lead Crescencio Marin, [address] [place] [address], [address] [address] Referral ID Status Reason Start Date Expiration Date V isits Requested Visits Authorized [id number] Authorized 06/20/2023 06/19/2024 1 1 Ordered Prescriptions [...] mg from all sources in 24 hours. 0 (Given - Provider: Josephine Romero RN) 0546 (Given - Provider: Remedios Polanco RN)1400 (Due)0 (Due) atorvastatin (LIPITOR) tablet 20 mg 20 mg, Oral, Nightly, First dose on Sat08/16/21 at 2100, Until Discontinued 2119 (Given - Provider: Josephine Romero RN) 2099 (Due) levothyroxine (SYNTHROID) tablet 100 mcg 100 mcg, Oral, DAILY, First dose on Nancy 08/17/21 at 0700, Until Discontinued, Tube feeding (TF) interaction, obtain physician order to manage, recommend holding TF for 30 minutes before and after dose. 0600 (Given - Provid er: Remedios Polanco RN) pantoprazole (PROTONIX) tablet 40 mg 40 mg, Oral, DAILY BEFORE BREAKFAST, First dose on Nancy 08/17/21 at 0730, Until Discontinued, Do not crush [...] Fluid Infusing) 08 (Given - Provider: Sybil Avalos RN)2099 (Due) therapeutic multivitamin-minerals 1 tablet 1 tablet, Oral, DAILY, First dose on Sat08/16/21 at 2030, Until Discontinued 2119 (Given - Provider: Josephine Romero RN) 08 (Given - Provider: Sybil Avalos RN) tiZANidine (ZANAFLEX) tablet 4 mg 4 mg, [...] 2122 (New Bag - Provider: Josephine Romero RN)2123 (Rate/Dose Verify - Provider: Remedios Polanco RN) [...] June 05, 2023 End: June 05, 2023 Bariatric Program Coordinator Relationship Specialty Start Date End Date Frantz Conley MD [address] [place] [address] PCP - General Internal Medicine 08/16/21 Team [...] Active Zoila Castorena MD Attending Provider Active Bariatric Program Coordinator Relationship Specialty Start Date End Date Frantz Conley MD [address] [facility] [address] [place] [address] PCP - General Internal Medicine 08/08/22 Frantz Conley MD [address] [place] [address] PCP - ACO Reach 08/16/22 Bariatric Program Coordinator Relationship Specialty Start Date End Date Frantz Conley MD [address] [place] [address] PCP - General Internal Medicine 08/08/22 Frantz Conley MD [address] [place] [address] PCP - ACO Reach 08/16/22 Bariatric Program Coordinator Relationship Specialty Start Date End Date Frantz Conley MD [address] [facility] [address] [place] [address] PCP - General Internal Medicine 06/20/23 Team Status: Inactive Member Role Status Dates Frantz Conley II MD Primary Care Provider Active Start: September 17, 2023 End: September 17, 2023 Mick Branch MD Attending Provider Active S tart: September 17, 2023 End: September 17, 2023 Team Status: Inactive Member Role Status Virgilio Conley II MD Primary Care Provider Active Start: October 01, 2023 End: October 01, 2023 Mick Branch MD Attending Provider Active S tart: October 01, 2023 End: October 01, 2023 Team Status: Inactive Member Role Status Virgilio Conley II MD Primary Care Provider Active Start: October 23, 2023 End: October 23, 2023 Mick Branch MD Attending Provider Active S tart: October 23, 2023 End: October 23, 2023 Team Status: Active Member Role Status Virgilio Conley II MD Primary Care Provider Active Start: October 23, 2023 Mick Branch MD Attending Provider, Other Provide r Active Start: October 23, 2023 Goals (unrecognized section and content) Goals may [...] BE BASED ON THE PRIMARY CLINICAL RECORDS. [employer] provides no warranty or guarantee of the accuracy or completeness of information in this document.
[2023-12-05 15:10] LABS: Hematocrit 38.3 % (42.0-54.0); Hemoglobin 12.2 g/dL (14.0-18.0); Mean Corpuscular HGB Conc 31.9 g/dL (29.9-35.2); Mean Corpuscular Hemoglobin 29.5 pg (25.9-34.0); Mean Corpuscular Volume 92.5 fL (80.0-94.0); Mean Platelet Volume 11.1 fL (9.5-13.5); Platelet Count 63 10^3/uL (150-450); Red Blood Count 4.14 10^6/uL (4.70-6.10); Red Cell Distribution Width 18.3 % (11.0-15.0); White Blood Count 3.1 10^3/uL (4.0-11.0)
[2023-12-05 15:26] LABS: Eosinophils Absolute Manual 0.09 10^3/uL (0.00-0.70); Lymphocytes Absolute Manual 0.74 10^3/uL (1.20-3.80); Monocytes Absolute Manual 0.34 10^3/uL (0.30-0.80); Segmented Neut Absolute Manual 1.89 10^3/uL (1.4-6.5)
[2023-12-05 15:27] LABS: Basophils Abs Manual 0.03 10^3/uL (0.00-0.10)
[2023-12-05 15:33] LABS: Percent Iron Saturation 29.6 %
== END 2023-12-05 14:49 | disposition home or self-care (01) ==
LOC: LAB 14:52
PROVIDERS: PCP Internal Medicine; Visit Provider Internal Medicine Hematology & Oncology
DX: D64.9 Anemia, unspecified (principal); D50.9 Iron deficiency anemia, unspecified; K90.9 Intestinal malabsorption, unspecified; D72.819 Decreased white blood cell count, unspecified; D69.6 Thrombocytopenia, unspecified
CPT/HCPCS: 36415; 82728; 83540; 83550; 85007; 85027

== ENCOUNTER 2023-12-10 07:20 | Outpatient (RCR) | payer MEDICARE, OTHER, SELFPAY | END 2023-12-23 23:59 | disposition home or self-care (01) | LOC: HEMC 07:20 | PROVIDERS: PCP Internal Medicine; Visit Provider Internal Medicine Hematology & Oncology | DX: D50.9 Iron deficiency anemia, unspecified (principal); D64.9 Anemia, unspecified; D50.0 Iron deficiency anemia secondary to blood loss (chronic); K90.9 Intestinal malabsorption, unspecified; D72.819 Decreased white blood cell count, unspecified; D69.6 Thrombocytopenia, unspecified | CPT/HCPCS: G0463 ==

== ENCOUNTER 2024-04-21 07:43 | Outpatient (RCR) | payer MEDICARE, OTHER, SELFPAY ==
--- OUTSIDE RECORDS SUMMARY | 2024-04-21 07:47 | XMS_ITS | CCD ---
Author Organization [facility] ion [facility] Care Team Providers Care Radiology Teacher Name Role Phone Zahler, Hardeep Unavailable Unavailable Zahler, Hardeep Unavailable Unavailable Flakito Hardeep Unavailable Unavailable FRANTZ CONLEY Unavailable Unavailable Yuridiahler, Hardeep Unavailable Unavailable Zahler, Hardeep Unavailable Unavailable Saumya Fraganathan Unavailable Unavailable FRANTZ CONLEY Unavailable Unavailable [place] [...] RENTERIA Consulting Unavailable SUKH CROFT Consulting Unavailable JARVIS, DR WAGNER Primary Care Unavailable JARVIS, DR WAGNER Admitting Unavailable JARVIS, DR WAGNER Attending Unavailable JARVIS, DR WAGNER Consulting Unavailable MICK BRANCH Attending Unavailable MICK BRANCH Consulting Unavailable JARVIS, DR WAGNER Primary Care Unavailable MICK BRANCH Admitting Unavailable MOE, DR CARVAJAL Admitting Unavailable MOE, DR CARVAJAL Attending Unavailable MOE, DR CARVAJAL Consulting Unavailable DR FRANTZ CONLEY Primary Care Unavailable LIBBY Conley Primary Care Provider MD Mick Branch Attending Provider LIBBY Conley Attending Provider LIBBY Conley Primary Care Provider [phone] LIBBY Conley Referring Provider MD Zoila Castorena Attending Provider MD Mick Branch Attending Provider [phone] ARABELLA MURPHY Attending Unavailable MD Jose Manning Attending Provider Frantz Conley MD Primary Care Provider Frantz Conley MD Unavailable [phone] MD Jose Manning Attending Provider LIBBY Conley Primary Care Provider LIBBY Conley Attending Provider Frantz Conley MD Primary Care Provider [phone] LIBBY Conley Primary Care Provider MD Mick Branch Attending Provider Frantz Conley Attending Unavailable Frantz Conley Primary Care Unavailable Frantz Conley Admitting Unavailable Frantz Conley Primary Care Unavailable Mick Branch Attending Unavailable Mick Branch Admitting Unavailable Frantz Conley Primary Care Unavailable Mick Branch Attending Unavailable Mick Branch Admitting Unavailable Frantz Conley Primary Care Unavailable Mick Branch Admitting Unavailable Mick Branch Attending Unavailable Jose Manning Attending Unavailable Jose Manning Admitting Unavailable KDCRESCENCIO RAMIREZ Attending Unavailable FRANTZ CONLEY B Primary Care Unavailable KD, CRESCENCIO S Referring Unavailable JARVIS FRANTZ B Primary Care Unavailable KD CRESCENCIO S Attending Unavailable KD CRESCENCIO S Referring Unavailable JARVIS FRANTZ B Primary Care Unavailable FRANTZ CONLEY B Attending Unavailable FRANTZ CONLEY B Attending Unavailable FRANTZ CONLEY B Attending Unavailable FRANTZ CONLEY B Attending Unavailable ROSANNA DALY Attending Unavailable FRANTZ CONLEY Attending Unavailable Allergies Allergy Classification Reported Allergen(s) Allergy Type Date of Onset Reaction(s) Facility (1 source) ALLERGIES NOT ON FILE; Translations: [ALLERGIES NOT ON FILE] Propensity to adverse reactions (disorder) [facility] Repository Medications Current Medications Medication Drug Class(es) Dates Sig (Normalized) Sig (Original) atorvastatin 20 mg oral tablet (20 sources) HMG-CoA Reductase Inhibitor Start: 04-26-2021 take 1 tablet by mouth once daily atorvastatin (Lipitor) 20 mg tablet Take 1 tablet (20 mg) by mouth once daily. 02/21/2023 Active carvedilol 3.125 mg oral tablet (7 sources) alpha-Adrenergic Alfredo, beta-Adrenergic Alfredo Start: 10-23-2023 take 1 tablet by mouth in the morning carvedilol (Coreg) 3.125 MG tablet Take 3.125 mg by mouth in the morning and 3.125 mg in the evening. Take with meals. 10/23/2023 Active clopidogrel 75 mg oral tablet (20 sources) P2Y12 Platelet Inhibitor Start: 04-05-2023 take 1 tablet by mouth once daily clopidogrel (Plavix) 75 mg tablet Take 1 tablet (75 mg) by mouth once daily. 04/05/2023 Active Start: 08-22-2021 End: 08-17-2021 take [...] / eicosapentaenoic acid 180 mg oral capsule (3 sources) take 1 capsule by mo uth once daily fish oil concentrate (Dewitt-3) 120-180 mg capsule Take 1 capsule (1,000 mg) by mouth once daily. Active take 1 capsule by mouth three ti mes daily Dewitt-3 Fatty Acids (FISH OIL) 1000 MG CAPS Take 1,000 mg by mouth 3 times daily 0 Active Fish Oils (3 sources) Fish Oil 1000 MG DAILY Active levothyroxine sodium 0.088 mg oral tablet (20 sources) l-Thyroxin e Start: 05-14-2023 take 1 tablet by mouth once daily in the morning levothyroxine (Synthroid, Levoxyl) 88 MCG tablet Indications: Acquired hypothyroidism (CMS/HCC) take 1 tablet by mouth every morning ON AN EMPTY STOMACH 100 tablet 3 08/20/2023 Active Start: 04-26-2021 End: 10-09-2023 take 100 ug by mouth once daily in the morning Levothyroxine Discontinued 100 MCG PO Every morning April 26, 2021 1:00am October 09, 2023 8:44am take 1 tablet by lakes[place] once daily in the morning Synthroid 100 MCG 1 tablet in the morning on an empty stomach Orally Once a day Active Multiple Vitamins-Minerals ( ONE DAILY ADULTS 50+ PO) (7 sources) take 1 tablet by mouth once daily Multiple Vitamins-Minerals (ONE DAILY ADULTS 50+ PO) Take 1 tablet by mouth 1 (one) time each day. Active take 1 tablet by mouth once emma y Multiple Vitamins-Minerals (ONE DAILY ADULTS 50+ PO) Take 1 tablet by mouth 1 (one) time each day. 0 Active Multiple Vitamins-Minerals (THERAPEUTIC MULTIVITAMIN-MINERALS) tablet (1 source) take 1 tablet by mouth once daily Multiple Vitamins-Minerals (THERAPEUTIC MULTIVITAMIN-MINERALS) tablet Take 1 tablet by mouth daily 0 Active Multivitamin preparation (12 sources) Start: 04-26-19 take 1 tablet by mouth once daily [...] a day Active multivitamin with minerals tablet (2 sources) take 1 tablet by lakesha th once daily multivitamin with minerals tablet Take 1 tablet by mouth once daily. Active take 1 tablet by mouth once emma y multivitamin with minerals tablet Take 1 tablet by mouth once daily. 0 Active Dewitt 9-Kgf-Zxl-Fish Oil (Fish Oil) 1,000 mg (120 mg-180 mg) Capsule (9 sources) Start: 04-26-2021 take 1 capsule by mouth three times daily Dewitt 4-Xne-Pvw-Fish Oil (Fish Oil) 1,000 mg (120 mg-180 mg) Capsule Active 1 CAP PO Three times daily April 26, 2021 12:00am Start: 04-26-2021 take 1 capsule by mo uth three times daily Dewitt 6-Zze-Tal-Fish Oil (Fish Oil) 1,000 mg (120 mg-180 mg) Capsule Active 1 CAP PO Three times daily April 26, 2021 1:00am Dewitt-3 Fatty Acids (Fish Oil) 1000 MG capsule delayed-release (7 sources) Start: 09-13-2014 take 1 capsule by mouth once daily Dewitt-3 Fatty Acids (Fish Oil) 1000 MG capsule delayed-release Take 1 capsule by mouth 1 (one) time each day. 09/13/2014 Active Start: 09-13-2014 take 1 capsule by mo [facility] once daily Dewitt-3 Fatty Acids (Fish Oil) 1000 MG capsule delayed-release Take 1 capsule by mouth 1 (one) time each day. 0 09/13/2014 Active omeprazole 40 mg delayed release oral capsule (20 sources) Proton Pump Inhibitor Start: 04-26-2021 End: 01-09-2024 omeprazole (PriLOSEC) [address] capsule Indications: Gastroesophageal reflux disease without esophagitis TAKE 1 CAPSULE IN THE MORNING AND 1 CAPSULE IN THE EVENING. TAKE BEFORE MEALS. 180 capsule 3 12/05/2023 Active take 1 capsule by mouth once jamel ly omeprazole (PRILOSEC) 40 MG delayed release capsule Take 40 mg by mouth daily 0 Active ondansetron (ZOFRAN-ODT) disintegrating tablet 4 mg (1 source) Start: 08-16-2021 ondansetron (ZOFRAN-ODT) disintegrating tablet 4 mg tiZANidine 4 mg oral tablet (20 sources) Central alpha-2 Adrenergic Agonist Start: 04-18-2023 tiZANidine (Zanaflex ) 4 MG tablet Indications: Muscle cramps TAKE 1 TABLET DAILY AT NIGHT TIME NEEDED 90 tablet 3 04/18/2023 Active Start: 04-18-2023 [facility] daily as needed Tizanidine Active 4 MG PO Twice daily October 09, 2023 12:00am [employer] tablet as needed Orally bid prn; Note: Source Status: Taking; Provider: Sarina Barton ( ) Start: 04-26-2021 End: 08-08-2022 take 4 mg [...] Substituted for Omeprazole (PRILOSEC). polyethylene glycol 3350 06001 mg powder for oral solution (1 source) [...] Problem Classification Problem Date Documented Date Episodic/Chronic Anxiety disorders (7 sources) Anxiety; Translations: [Other specified anxiety disorders] Onset: 08-13-2022 08-13-2022 Chronic Aortic; peripheral; and visceral artery aneurysms (18 sources) Thoracic aortic aneurysm, without rupture; Translations: [Aortic ectasia, unspecified site] Onset: 11-08-2021 Chronic Cardiac dysrhythmias (20 sources) Ventricular premature depolarization; Translations: [Multiple premature ventricular complexes] Onset: 08-13-2022 Chronic Cardiac dysrhythmias (3 sources) Bradycardia, unspecified; Translations: [Bradycardia] Onset: 01-01-2024 Episodic Chronic kidney disease (2 sources) Chronic kidney disease; Translations: [Chronic kidney disease, stage 3 unspecified] Onset: 09-17-2022 Coronary atherosclerosis and other heart disease (18 sources) Old myocardial infarction; Translations: [Atherosclerotic heart disease of [place] coronary artery without angina pectoris] Onset: 02-07-2021 Chronic Deficiency and other anemia (17 sources) Acquired pancytopenia; Translations: [Other pancytopenia] Onset: 04-22-2023 08-08-2022 Chronic Deficiency and other anemia (3 sources) Other pancytopenia; Translations: [Other pancytopenia] Onset: 06-05-2023 09-28-2022 Chronic Disorders of lipid metabolism (13 sources) Mixed hyperlipidemia; Translations: [Hypertriglyceridemia] Onset: 08-13-2022 Chronic Diverticulosis and diverticulitis (7 sources) Diverticulosis of colon; Translations: [Diverticulosis of large intestine without perforation or abscess without bleeding] Onset: 08-13-2022 08-13-2022 Chronic E Codes: Struck by; against (1 source) Striking against or struck by other objects, initial encounter; Translations: [STRIKING AGNST/STRUCK OTH OBJ INIT] Onset: 08-18-2021 Episodic Esophageal disorders (10 sources) Gastroesophageal reflux disease; Translations: [Gastro-esophageal reflux disease without esophagitis] Onset: 08-13-2022 08-13-2022 Chronic Essential hypertension (11 sources) Essential (primary) hypertension; Translations: [Benign essential hypertension] Onset: 09-17-2022 Chronic Hepatitis (20 sources) Nonalcoholic steatohepatitis; Translations: [Nonalcoholic steatohepatitis (PLASCENCIA)] Onset: 09-13-2021 Resolved: 09-13-2021 Chronic Hypertension with complications and secondary hypertension (9 sources) Hypertensive heart and chronic kidney disease with heart failure and stage 1 through stage 4 chronic kidney disease, or unspecified chronic kidney disease; Translations: [Hypertensive heart AND chronic kidney disease with congestive heart failure] Onset: 09-17-2022 Chronic Immunizations and screening for infectious disease (2 sources) Needs influenza immunization; Translations: [Encounter for immunization] 03-12-2024 Episodic Intracranial injury (5 sources) Subarachnoid hemorrhage due to traumatic injury; Translations: [Traumatic subarachnoid hemorrhage without loss of consciousness, initial encounter] Onset: 08-18-2021 Episodic Miscellaneous mental health disorders (7 sources) Chronic insomnia; Translations: [Psychophysiologic insomnia] Onset: 08-13-2022 08-13-2022 Chronic Nutritional deficiencies (7 sources) Vitamin D deficiency; Translations: [Vitamin D deficiency, unspecified] Onset: 08-13-2022 08-13-2022 Chronic Open wounds of head; neck; and trunk (3 sources) Facial laceration ; Translations: [Laceration without foreign body of other part of head, initial encounter] Onset: 08-18-2021 Episodic Other aftercare (1 source) 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; Translations: [MCC CURRENT USE OF ASPIRIN] Onset: 08-18-2021 Episodic Other aftercare (1 source) moth 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 (current) use of antithrombotics/antipl atelets; Translations: [DIRECTOR OF INFECTION CONTROL ANTITHROMBOT/ANTIPLATL ETS] Onset: 08-18-2021 Episodic Other injuries [...] not elsewhere classified] Chronic Other liver diseases (1 source) Other cirrhosis of liver Onset: 09-13-2021 Resolved: 09-13-2021 Chronic Other liver diseases (4 sources) Cirrhosis - non-alcoholic; Translations: [Unspecified cirrhosis of liver] 09-17-2023 Chronic Other nervous system disorders (7 sources) Chronic pain; Translations: [Other chronic pain] Onset: 08-13-2022 08-13-2022 Chronic Other nutritional; endocrine; and metabolic disorders (2 sources) Body mass index (BMI) 29.0-29.9, adult; Translations: [Body mass index (BMI) 29.0-29.9, adult] Onset: 01-01-2024 Episodic Other nutritional; endocrine; and metabolic disorders (2 sources) Overweight in adulthood with body mass index of 25 or more but less than 30; Translations: [Body mass index (BMI) 29.0-29.9, adult] Onset: 01-01-2024 01-01-2024 Episodic Other screening for suspected conditions (not mental disorders or infectious disease) (10 sources) Liver function tests abnormal; Translations: [Other specified abnormal findings of blood chemistry] Onset: 08-13-2022 08-13-2022 Episodic Superficial injury; contusion (1 source) Contusion of other part of head, initial encounter; Translations: [CONTUS OTH PRT HEAD INITIAL ENCNTR] Onset: 08-18-2021 Episodic Thyroid disorders (10 sources) Hypothyroidism, unspecified; Translations: [Acquired hypothyroidism] Onset: 08-18-2021 08-13-2022 Chronic Unclassified (4 sources) CONTACT W/AND (SUSP) EXPOS COVID-19; Translations: [CONTACT W/AND (SUSP) EXPOS COVID-19] Onset: 04-10-2021 Unclassified (1 source) COUGH, UNSPECIFIED; Translations: [COUGH, UNSPECIFIED] Onset: 04-10-2021 Past or Other Problems Problem Classification Problem Date Documented Da te Episodic/Chronic Abdominal pain (8 sources) Right upper quadrant pain; Translations: [Right upper quadrant pain] Onset: 02-07-2021 Resolved: 10-21-2023 08-13-2022 Episodic Acute cerebrovascular disease (9 sources) Hemorrhage into subarachnoid space of neuraxis; Translations: [Nontraumatic subarachnoid hemorrhage, unspecified] Onset: 08-16-2021 Resolved: 10-21-2023 Chronic Biliary tract disease (20 sources) Calculus of gallbladder without cholecystitis without obstruction; Translations: [Calculus of gallbladder with cholecystitis] Onset: 02-07-2021 Resolved: 10-21-2023 05-10-2021 Episodic Coronary atherosclerosis and other heart disease (3 sources) Presence of coronary angioplasty implant and graft; Translations: [PRESENCE COR ANGPLSTY IMPLANT AND GRAFT] Onset: 02-07-2021 Episodic Deficiency and other anemia (11 sources) Iron deficiency anemia; Translations: [Iron deficiency anemia, unspecified] Onset: 05-08-2023 05-08-2023 Episodic Deficiency and other anemia (2 sources) Iron deficiency anemia, unspecified; Translations: [Iron deficiency anemia, unspecified] Onset: 06-20-2023 Episodic Mood disorders (4 sources) Mood disorders Onset: 10-21-2023 10-21-2023 Mycoses (7 sources) Onychomycosis due to dermatophyte ; Translations: [Tinea unguium] Onset: 08-13-2022 08-13-2022 Episodic Other acquired deformities (7 sources) Spondylolysis of cervical spine; Translations: [Spondylolysis, cervical region] Onset: 08-13-2022 08-13-2022 Episodic Other aftercare (1 source) Other usp (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 therapy; Translations: [OTH MCC CURRENT DRUG THERAPY] Onset: 02-07-2021 Episodic Other connective tissue disease (7 sources) Cramp; Translations: [Cramp and spasm] Onset: 08-13-2022 08-13-2022 Episodic Other disorders of stomach and duodenum (7 sources) Indigestion; Translations: [Functional dyspepsia] Onset: 08-13-2022 08-13-2022 Episodic Other liver diseases (20 sources) Fatty (change of) liver, not elsewhere classified; Translations: [Other chronic nonalcoholic liver disease] Onset: 09-13-2021 Resolved: 10-21-2023 Chronic Other lower respiratory disease (3 sources) Pleurodynia; Translations: [PLEURODYNIA] Onset: 02-03-2021 Episodic Other nervous system disorders (7 sources) Unsteady when standing; Translations: [Unsteadiness on feet] Onset: 08-13-2022 08-13-2022 Episodic Screening and history of mental health and substance abuse codes (11 sources) Personal history of nicotine dependence; Translations: [Ex-cigarette smoker] Onset: 08-18-2021 06-20-2023 Episodic Unclassified (1 source) CONTACT W/AND (SUSP) EXPOS COVID-19; Translations: [CONTACT W/AND (SUSP) EXPOS COVID-19] Onset: 03-01-2021 Unclassified (2 sources) Onset: 06-20-2023 06-20-2023 Results Test Name Value Interpretation Reference Range Facility ECG 12 [place] 01-01-2024 Sinus bradycardia, P VC, sinus arrhythmia, anterolateral DE age-indeterminate, abnormal ECG [facility] Work Phone: [facility] Work Phone: ALL CBC WITH AUTO DIFFon Erythrocyte distribution width (RBC) [Ratio] 18.3 % High 11.0 - 15.0 % [facility] Hematocrit (Bld) [Volume fraction] 38.3 % Low 42.0 - 54.0 % [facility] Hemoglobin (Bld) [Mass/Vol] 12.2 g/dL Low 14.0 - 18.0 g/dL [facility] Interpretation and review of laboratory results Abnormal [facility] MCH (RBC) [Entitic mass] 29.5 pg 25.9 - 34.0 pg [facility] MCHC (RBC) [Mass/Vol] 31.9 g/dL 29.9 - 35.2 g/dL [facility] MCV (RBC) [Entitic vol] 92.5 fL 80.0 - 94.0 fL [facility] Platelet mean volume (Bld) [Entitic vol] 11.1 fL 9.5 - 13.5 fL [facility] TBH PLT 63 Low [facility] TBH RBC 4.14 Low [facility] TB WBC 3.1 Low [facility] No Panel InformationOrdered By: Mick Branch on 10-23-2023 Miscellaneous Pathology Test See comment [facility] Comment on above: See report. Scanned copy available in EMR. Pathology Request for Lab Co rpon 10-23-2023 Pathology Request for Lab Deyvi Normal [facility] Comment on above: Order Comment: PATHO LOGY GI SPECIMEN Result Comment: See report. Scanned copy available in EMR. PERFORMED BY: [place] [address] PATHOLOGIST STRETCHER HELPER DENNISE PATRICK M.D. Performed By: #### P ATH TO [facility] #### [address] liveron 10-01-2023 liver [facility] [place] [address] Ultrasound Report Signed Patient: Pankaj Payne MR#: [id number] : 1945 Acct:[id number] Age/Sex: 78 / M ADM Date: 10/01/23 Loc: Room: Type: [facility] Attending Dr: Mick Branch MD Ordering Provider: [...] Claros Jr., D.OKita10/01/2023 4:25 PM Dictation Location: [place] [address] Tech: Sandra Miller Transcribed By: USMAN 10/01/23 162 Dictated By: Kartik Claros Jr, DO 10/01/231623 Signed By: 10/01/23 162 Normal [facility] AFP Tumor Marker, Serumon AFP Tumor Marker, Serum 3.0 ng/mL Normal 0.0-8.4 [facility] Comment on above: Result Comment: [facility] Electrochemiluminescence Immunoassay (ECLIA) Values obtained with different assay methods or kits cannot be used interchangeably. Results cannot be interpreted as absolute evidence of the presence or absence of malignant disease. This test is not interpretable in females. Performed at: [facility] [address] [id number] Finishing Trimmer: Charlie Klein PhD, Phone: [phone] PERFORMED BY: [place] [address] PATHOLOGIST STRETCHER HELPER DENNISE PATRICK M.D. Performed By: #### F E and TIBC, CMP, PT, MAGDALENA, DIFF CBC #### [address] #### AFPTM #### [facility] , Alanine aminotransferase [En zymatic activity/volume] in Serum or PlasmaOrdered By: Mick Branch on 09-17-2023 ALT [Catalytic activity/Vol] 43 U/L Normal 7-52 [facility] Comment on above: Performed By: #### F E and TIBC, CMP, PT, MAGDALENA, DIFF CBC #### [facility] [address] [place] [address] [place] #### AFPTM #### [facility] , Albumin [Mass/volume] in Ser um or Plasma by Bromocresol green (BCG) dye binding methoOrdered By: Mick Branch on 09-17-2023 Albumin BCG dye [Mass/Vol] 3.9 g/dL 3.5-5.7 [facility] Alkaline phosphatase [Enzyma tic activity/volume] in Serum or PlasmaOrdered By: Mick Branch on 09-17-2023 ALP [Catalytic activity/Vol] 138 U/L High 34-104 [facility] Comment on above: Performed By: #### F E and TIBC, CMP, PT, MAGDALENA, DIFF CBC #### [place] [address] [place] #### AFPTM #### [facility] , Anisocytosis [Presence] in B lood by Light microscopyOrdered By: Mick Branch on 09-17-2023 Anisocytosis Ql (Bld) Slight Normal [facility] Comment on above: Performed By: #### F E and TIBC, CMP, PT, MAGDALENA, DIFF CBC #### [place] [address] [place] #### AFPTM #### [facility] , Aspartate aminotransferase [ Enzymatic activity/volume] in Serum or PlasmaOrdered By: Mick Branch on 09-17-2023 AST [Catalytic activity/Vol] 49 U/L High 13-39 [facility] Comment on above: Performed By: #### F E and TIBC, CMP, PT, MAGDALENA, DIFF CBC #### [place] [address] [place] #### AFPTM #### [facility] , Basophils Auto (Bld) [#/Vol] Ordered By: Mick Branch on 09-17-2023 Basophils (Bld) [#/Vol] N/A [facility] Basophils/100 WBC Auto (Bld) Ordered By: Mick Branch on 09-17-2023 Basophils/100 WBC (Bld) N/A [facility] Bilirubin.total [Mass/volume ] in Serum or PlasmaOrdered By: Mick Branch on 09-17-2023 Bilirubin [Mass/Vol] 0.6 mg/dL Normal 0.3-1.0 [facility] Comment on above: Performed By: #### F E and TIBC, CMP, PT, MAGDALENA, DIFF CBC #### [place] [address] [place] #### AFPTM #### [facility] , Calcium [Mass/volume] in Ser um or PlasmaOrdered By: Mick Branch on 09-17-2023 Calcium [Mass/Vol] 8.8 mg/dL Normal 8.6-10.3 [facility] Comment on above: Performed By: #### F E and TIBC, CMP, PT, MAGDALENA, DIFF CBC #### [facility] [address] [place] [address] [place] #### AFPTM #### [facility] , Carbon dioxide, total [Moles /volume] in Serum or PlasmaOrdered By: Mick Branch on 09-17-2023 CO2 [Moles/Vol] 27.5 mmol/L Normal 21.0-31.0 [facility] Comment on above: Performed By: #### F E and TIBC, CMP, PT, MAGDALENA, DIFF CBC #### [facility] [address] [place] [address] [place] #### AFPTM #### [facility] , Chloride [Moles/volume] in S lilly or PlasmaOrdered By: Mick Branch on 09-17-2023 Chloride [Moles/Vol] 111 mmol/L High 98-107 [facility] Comment on above: Performed By: #### F E and TIBC, CMP, PT, MAGDALENA, DIFF CBC #### [place] [address] [place] #### AFPTM #### [facility] , Comprehensive Metabolic Pane jamaal 09-17-2023 Albumin [Mass/Vol] 3.9 g/dL Normal 3.5-5.7 [facility] Comment on above: Performed By: #### F E and TIBC, CMP, PT, MAGDALENA, DIFF CBC #### [facility] [address] [place] [address] [place] #### AFPTM #### [facility] , GFR/1.73 sq M.predicted MDRD (S/P/Bld) [Vol rate/Area] mL/min/{1.73_m2} Normal [facility] Comment on above: Performed By: #### F E and TIBC, CMP, PT, MAGDALENA, DIFF CBC #### [place] [address] [place] #### AFPTM #### [facility] , Creatinine [Mass/volume] in Serum or PlasmaOrdered By: Mick Branch on 09-17-2023 Creatinine [Mass/Vol] 0.94 mg/dL Normal 0.70-1.30 [facility] Comment on above: Performed By: #### F E and TIBC, CMP, PT, MAGDALENA, DIFF CBC #### [place] [address] [place] #### AFPTM #### [facility] , Diff and CBCon 09-17-2023 Macrocytosis Slight Normal [facility] Comment on above: Performed By: #### F E and TIBC, CMP, PT, MAGDALENA, DIFF CBC #### [facility] [address] [place] [address] [place] #### AFPTM #### [facility] , Mean Corpuscular HGB Conc 32.2 g/dL Low 32.5-35.6 [facility] Comment on above: Performed By: #### F E and TIBC, CMP, PT, MAGDALENA, DIFF CBC #### [address] #### AFPTM #### [facility] , Microcytosis Slight Normal [facility] Comment on above: Performed By: #### F E and TIBC, CMP, PT, MAGDALENA, DIFF CBC #### [address] #### AFPTM #### [facility] , Ovalocytes Slight Normal [facility] Comment on above: Performed By: #### F E and TIBC, CMP, PT, MAGDALENA, DIFF CBC #### [address] #### AFPTM #### [facility] , Platelet Estimate Decreased Normal Normal [facility] Comment on above: Performed By: #### F E and TIBC, CMP, PT, MAGDALENA, DIFF CBC #### [address] #### AFPTM #### [facility] , Platelet Morphology Normal Normal Normal [facility] Comment on above: Result Comment: PERF ORMED BY: [place] [address] PATHOLOGIST STRETCHER HELPER DENNISE PATRICK M.D. Performed By: #### F E and TIBC, CMP, PT, MAGDALENA, DIFF CBC #### [address] #### AFPTM #### [facility] , Poikilocytosis Slight Normal [facility] Comment on above: Performed By: #### F E and TIBC, CMP, PT, MAGDALENA, DIFF CBC #### [address] #### AFPTM #### [facility] , WBC (Bld) [#/Vol] 3.2 10*3/uL Low 4.1-10.5 [facility] Comment on above: Performed By: #### F E and TIBC, CMP, PT, MAGDALENA, DIFF CBC #### [place] [address] [place] #### AFPTM #### [facility] , Eosinophils Auto (Bld) [#/Vo l]Ordered By: Mick Branch on 09-17-2023 Eosinophils (Bld) [#/Vol] N/A [facility] Eosinophils/100 WBC Auto (Bl d)Ordered By: Mick Branch on 09-17-2023 Eosinophils/100 WBC (Bld) N/A [facility] Eosinophils/100 leukocytes i n Blood by Manual countOrdered By: Mick Branch on 09-17-2023 Eosinophils/100 WBC (Bld) 4 % High 1-3 [facility] Comment on above: Performed By: #### F E and TIBC, CMP, PT, MAGDALENA, DIFF CBC #### [address] #### AFPTM #### [facility] , Erythrocyte distribution wid th [Ratio] by Automated countOrdered By: Mick Branch on 09-17-2023 Erythrocyte distribution width (RBC) [Ratio] 17.4 % High 12.0-14.8 [facility] Comment on above: Performed By: #### F E and TIBC, CMP, PT, MAGDALENA, DIFF CBC #### [place] [address] [place] #### AFPTM #### [facility] , Erythrocytes [#/volume] in B lood by Automated countOrdered By: Mick Branch on 09-17-2023 RBC (Bld) [#/Vol] 4.40 10*6/uL Normal 3.90-5.60 [facility] Comment on above: Performed By: #### F E and TIBC, CMP, PT, MAGDALENA, DIFF CBC #### [place] [address] [place] #### AFPTM #### [facility] , Ferritin [Mass/volume] in Se rum or PlasmaOrdered By: Mick Branch on 09-17-2023 Ferritin [Mass/Vol] 23.4 ng/mL Low 23.9-336.2 [facility] Comment on above: Result Comment: PERF ORMED BY: [place] [address] PATHOLOGIST STRETCHER HELPER DENNISE PATRICK M.D. Performed By: #### F E and TIBC, CMP, PT, MAGDALENA, DIFF CBC #### [place] [address] [place] #### AFPTM #### [facility] , Glucose [Mass/volume] in Ser um or PlasmaOrdered By: Mick Branch on 09-17-2023 Glucose [Mass/Vol] 78 mg/dL Normal 70-100 [facility] Comment on above: ADA recommended refe rence rangeRandom Glucose Reference Range is dependent on time and content of last meal. Glucose of more than 200 mg/dL in a nonstressed, ambulatory subject supports the diagnosis of Diabetes Mellitus. Result Comment: [place] om Glucose Reference Range is dependent on time and content of last meal. Glucose of more than 200 mg/dL in a nonstressed, ambulatory subject supports the diagnosis of Diabetes Mellitus. ADA recommended reference range Performed By: #### F E and TIBC, CMP, PT, MAGDALENA, DIFF CBC #### [place] [address] [place] #### AFPTM #### [facility] , Hematocrit [Volume Fraction] of Blood by Automated countOrdered By: Mick Branch on 09-17-2023 Hematocrit (Bld) [Volume fraction] 37.4 % Low 38.8-50.0 [facility] Comment on above: Performed By: #### F E and TIBC, CMP, PT, MAGDALENA, DIFF CBC #### [place] [address] [place] #### AFPTM #### [facility] , Hemoglobin [Mass/volume] in BloodOrdered By: Mick Branch on 09-17-2023 Hemoglobin (Bld) [Mass/Vol] 12.1 g/dL Low 13.0-17.0 [facility] Comment on above: Performed By: #### F E and TIBC, CMP, PT, MAGDALENA, DIFF CBC #### [facility] [address] [place] [address] [place] #### AFPTM #### [facility] , INR in Platelet poor plasma by Coagulation assayOrdered By: Mick Branch on 09-17-2023 INR Coag (PPP) [Relative time] 1.1 {INR} Normal [facility] Comment on above: INR Therapeutic Rang [...] heart valves: 3 - 4.5 PERFORMED BY: [place] [address] PATHOLOGIST STRETCHER HELPER DENNISE PATRICK M.D. Performed By: #### F E and TIBC, CMP, PT, MAGDALENA, DIFF CBC #### [facility] [address] [place] [address] [place] #### AFPTM #### [facility] , Iron [Mass/volume] in Serum or PlasmaOrdered By: Mick Branch on 09-17-2023 Iron [Mass/Vol] 52 ug/dL Normal 50-212 [facility] Comment on above: Performed By: #### F E and TIBC, CMP, PT, MAGDALENA, DIFF CBC #### [facility] [address] [place] [address] [place] #### AFPTM #### [facility] , Iron and TIBC Profileon 08-24 % Iron Saturation 10.5 % Low 20-50 [facility] Comment on above: Performed By: #### F E and TIBC, CMP, PT, MAGDALENA, DIFF CBC #### [facility] [address] [place] [address] [place] #### AFPTM #### [facility] , Total Iron Binding Capacity 496 ug/dL High 255-450 [facility] Comment on above: Performed By: #### F E and TIBC, CMP, PT, MAGDALENA, DIFF CBC #### [place] [address] [place] #### AFPTM #### [facility] , Iron binding capacity [Mass/ volume] in Serum or PlasmaOrdered By: Mick Branch on 09-17-2023 Iron binding capacity [Mass/Vol] 496 ug/dL High 255-450 [facility] Iron saturation [Mass Fracti on] in Serum or PlasmaOrdered By: Mick Branch on 09-17-2023 Iron saturation [Mass fraction] 10.5 % Low 20-50 [facility] Leukocytes [#/volume] correc britt for nucleated erythrocytes in Blood by Automated counOrdered By: Mick Branch on 09-17-2023 WBC corrected for nucl RBC Auto (Bld) [#/Vol] 3.2 10*3/uL Low 4.1-10.5 [facility] Leukocytes [#/volume] in Blo od by Automated countOrdered By: Mick Branch on 09-17-2023 WBC (Bld) [#/Vol] 3.4 10*3/uL Low 4.1-10.5 [facility] Comment on above: Performed By: #### F E and TIBC, CMP, PT, MAGDALENA, DIFF CBC #### [facility] [address] [place] [address] #### AFPTM #### [facility] , Lymphocytes Auto (Bld) [#/Vo l]Ordered By: Mick Branch on 09-17-2023 Lymphocytes (Bld) [#/Vol] N/A [facility] Lymphocytes/100 WBC Auto (Bl d)Ordered By: Mick Branch on 09-17-2023 Lymphocytes/100 WBC (Bld) N/A [facility] Lymphocytes/100 leukocytes i n Blood by Manual countOrdered By: Mick Branch on 09-17-2023 Lymphocytes/100 WBC (Bld) 25 % Normal 18-42 [facility] Comment on above: Performed By: #### F E and TIBC, CMP, PT, MAGDALENA, DIFF CBC #### [address] #### AFPTM #### [facility] , MCH [Entitic mass] by Automa britt countOrdered By: Mick Bracnh on 09-17-2023 MCH (RBC) [Entitic mass] 27.4 pg Low 27.5-35.2 [facility] Comment on above: Performed By: #### F E and TIBC, CMP, PT, MAGDALENA, DIFF CBC #### [address] #### AFPTM #### [facility] , MCHC Auto (RBC) [Mass/Vol]Or dered By: Mick Branch on 09-17-2023 MCHC (RBC) [Mass/Vol] 32.2 g/dL Low 32.5-35.6 [facility] MCV [Entitic volume] by Auto mated countOrdered By: Mick Branch on 09-17-2023 MCV (RBC) [Entitic vol] 85.0 fL Normal 83.5-101 [facility] Comment on above: Performed By: #### F E and TIBC, CMP, PT, MAGDALENA, DIFF CBC #### [facility] [address] [place] [address] [place] #### AFPTM #### [facility] , Macrocytes LM Ql (Bld)Ordere d By: Mick Branch on 09-17-2023 Macrocytes Ql (Bld) Slight [facility] Manual blood segmented neutr ophils/100 leukocytesOrdered By: Mick Branch on 09-17-2023 Segmented neutrophils/100 WBC (Bld) 63 % Normal 50-70 [facility] Comment on above: Performed By: #### F E and TIBC, CMP, PT, MAGDALENA, DIFF CBC #### [facility] [address] [place] [address] [place] #### AFPTM #### [facility] , Microcytes LM Ql (Bld)Ordere d By: Mick Branch on 09-17-2023 Microcytes Ql (Bld) Slight [facility] Monocytes Auto (Bld) [#/Vol] Ordered By: Mick Branch on 09-17-2023 Monocytes (Bld) [#/Vol] N/A [facility] Monocytes/100 WBC Auto (Bld) Ordered By: Mick Branch on 09-17-2023 Monocytes/100 WBC (Bld) N/A [facility] Monocytes/100 leukocytes in Blood by Manual countOrdered By: Mick Branch on 09-17-2023 Monocytes/100 WBC (Bld) 8 % Normal 2-11 [facility] Comment on above: Performed By: #### F E and TIBC, CMP, PT, MAGDALENA, DIFF CBC #### [facility] [address] [place] [address] [place] #### AFPTM #### [facility] , Neutrophils Auto (Bld) [#/Vo l]Ordered By: Mick Branch on 09-17-2023 Neutrophils (Bld) [#/Vol] N/A [facility] Neutrophils/100 WBC Auto (Bl d)Ordered By: Mick Branch on 09-17-2023 Neutrophils/100 WBC (Bld) N/A [facility] No Panel InformationOrdered By: Mick Branch on 09-17-2023 Estimated GFR (CKD-EPI) > 60.0 mL/Min [facility] Creatinine Clearance (Chem N/A [facility] Nucleated erythrocytes [Pres ence] in Blood by Automated countOrdered By: Mick Branch on 09-17-2023 Nucleated RBC Auto Ql (Bld) N/A [facility] Ovalocyte detectionOrdered B y: Mick Branch on 09-17-2023 Ovalocytes LM Ql (Bld) [facility] Peripheral white blood cell differential % bands, microscopic examOrdered By: Mick Branch on 09-17-2023 Band form neutrophils/100 WBC (Bld) 1 % Normal 0-5 [facility] Comment on above: Performed By: #### F E and TIBC, CMP, PT, MAGDALENA, DIFF CBC #### [facility] [address] [place] [address] #### AFPTM #### [facility] , Platelet adequacy [Presence] in Blood by Light microscopyOrdered By: Mick Branch on 09-17-2023 Platelets LM Ql (Bld) Decreased Normal [facility] Platelet mean volume [Entiti c volume] in Blood by Automated countOrdered By: Mick Branch on 09-17-2023 Platelet mean volume (Bld) [Entitic vol] 8.9 fL Normal 6.6-10.1 [facility] Comment on above: Performed By: #### F E and TIBC, CMP, PT, MAGDALENA, DIFF CBC #### [facility] [address] [place] [address] [place] #### AFPTM #### [facility] , Platelet morphology finding [Identifier] in BloodOrdered By: Mick Branch on 09-17-2023 Platelet morphology finding Nom (Bld) Normal Normal [facility] Platelets [#/volume] in Bloo d by Automated countOrdered By: Mick Branch on 09-17-2023 Platelets (Bld) [#/Vol] 112 10*3/uL Low 150-450 [facility] Comment on above: Performed By: #### F E and TIBC, CMP, PT, MAGDALENA, DIFF CBC #### [facility] [address] [place] [address] [place] #### AFPTM #### [facility] , Poikilocytosis [Presence] in Blood by Light microscopyOrdered By: Mick Branch on 09-17-2023 Poikilocytosis LM Ql (Bld) [facility] Potassium [Moles/volume] in Serum or PlasmaOrdered By: Mick Branch on 09-17-2023 Potassium [Moles/Vol] 4.3 mmol/L Normal 3.5-5.1 [facility] Comment on above: Performed By: #### F E and TIBC, CMP, PT, MAGDALENA, DIFF CBC #### [place] [address] [place] #### AFPTM #### [facility] , Protein [Mass/volume] in Ser um or PlasmaOrdered By: Mick Branch on 09-17-2023 Protein [Mass/Vol] 6.6 g/dL Normal 6.4-8.9 [facility] Comment on above: Performed By: #### F E and TIBC, CMP, PT, MAGDALENA, DIFF CBC #### [place] [address] [place] #### AFPTM #### [facility] , Prothrombin time (PT)Ordered By: Mick Branch on 09-17-2023 PT Coag (PPP) [Time] 13.1 s High 9.0-12.9 [facility] Comment on above: A hematocrit value g reater than 55% may lead to inaccurate results in coagulation testing. Patients having hematocrit values >55% require a special collection tube for coagulation studies. Please contact the laboratory at [phone] for redraw instructions. Result Comment: A he matocrit value greater than 55% may lead to inaccurate results in coagulation testing. Patients having hematocrit values >55% require a special collection tube for coagulation studies. Please contact the laboratory at [phone] for redraw instructions. Performed By: #### F E and TIBC, CMP, PT, MAGDALENA, DIFF CBC #### [facility] [address] [place] [address] [place] #### AFPTM #### [facility] , RBC morphologyOrdered By: Kimberly Branch on 09-17-2023 RBC morphology finding Nom (Bld) N/A [facility] Serum globulin measurement b y calculation (mass/volume)Ordered By: Mick Branch on 09-17-2023 Globulin (S) [Mass/Vol] 2.7 g/dL Normal [facility] Comment on above: Performed By: #### F E and TIBC, CMP, PT, MAGDALENA, DIFF CBC #### [place] [address] [place] #### AFPTM #### [facility] , Serum or plasma albumin/glob ulin mass ratioOrdered By: Mick Branch on 09-17-2023 Albumin/Globulin [Mass ratio] 1.4 {ratio} [facility] Comment on above: Performed By: #### F E and TIBC, CMP, PT, MAGDALENA, DIFF CBC #### [facility] [address] [place] [address] #### AFPTM #### [facility] , Serum or plasma [id number] protein tumor marker measurement (mass/volume)Ordered By: Mick Branch on 09-17-2023 AFP.tumor marker [Mass/Vol] 3.0 ng/mL 0.0-8.4 [facility] Comment on above: [facility] El ectrochemiluminescence Immunoassay(ECLIA)Values obtained with different assay methods or kits cannotbe used interchangeably. Results cannot be interpreted asabsolute evidence of the presence or absence of malignantdisease.This test is not interpretable in females.Performed at: [facility] [address] [id number] Director: Charlie Klein PhD, Phone: [phone] Serum or plasma anion gap de terminationOrdered By: Mick Branch on 09-17-2023 Anion gap [Moles/Vol] 8.8 mmol/L Normal 6.0-15.0 [facility] Comment on above: Performed By: #### F E and TIBC, CMP, PT, MAGDALENA, DIFF CBC #### [address] #### AFPTM #### [facility] , Sodium [Moles/volume] in Ser um or PlasmaOrdered By: Mick Branch on 09-17-2023 Sodium [Moles/Vol] 143 mmol/L Normal 136-145 [facility] Comment on above: Performed By: #### F E and TIBC, CMP, PT, MAGDALENA, DIFF CBC #### [address] #### AFPTM #### [facility] , Transferrin [Mass/volume] in Serum or PlasmaOrdered By: Mick Branch on 09-17-2023 Transferrin [Mass/Vol] 354 mg/dL Normal 203-362 [facility] Comment on above: Performed By: #### F E and TIBC, CMP, PT, MAGDALENA, DIFF CBC #### [address] #### AFPTM #### [facility] , Urea nitrogen [Mass/volume] in Serum or PlasmaOrdered By: Mick Branch on 09-17-2023 Urea nitrogen [Mass/Vol] 20 mg/dL Normal 7-25 [facility] Comment on above: Performed By: #### F E and TIBC, CMP, PT, MAGDALENA, DIFF CBC #### [place] [address] [place] #### AFPTM #### [facility] , ECG 12 Leadon 06-20-2023 Sinus rhythm, rightw stephanie axis, bigeminal PVCs, anteroseptal infarction pattern age indeterminant, abnormal ECG [facility] Work Phone: US spleenon 06-05-2023 US spleen [facility] [place] [address] [place] [address] Ultrasound Report Signed Patient: Pankaj Payne MR#: [id number] : 1945 Acct:[id number] Age/Sex: 77 / M ADM Date: 06/05/23 Loc: Room: Type: [facility] Attending Dr: Frantz Conley II, MD Ordering [...] lesion. Impression dictated by: Kartik Claros Jr., DKitaOKita06/05/2023 12:06 PM Dictation Location: [place] [address] Tech: Demi Weinberg Transcribed By: [facility] 06/05/23 120 Dictated By: Kartik Claros Jr, DO 06/05/23 120 Signed By: 06/05/23 120 Normal [facility] Jamaal 04-30-2023 L Specimen: [id number] Received: 05/01/23 Status: GIOVANA Toney Num: [id number] Spec Type: Impression Subm Dr: Markus Renteria DO Tissues: PATHPER Procedures: PATHREVIEW Age/ Patient Sex Location Account Attending Physician Pankaj Payne 77/M [facility] [id number] Jose Manning MD SPEC NUM: [id number] RECD: 05/01/23 STATUS: SOUT RELopez NUM: [id number] BIBI: 04/30/23-[address]: Markus Renteria DO ENTERED: 05/01/[address]: Yue Porter MD SPEC TYPE: Impression DEPT: MADELEINE Abdi ENTERED BY: [id number] RECV BY: [id number] ORDERED: PATHREVIEW ORDERED: PATHREVIEW Pathologist Review Abnormal [...] continues close laboratory follow-ups as appropriate CPT: 84469 Specimen: [id number] Received: 05/01/23 Status: GIOVANA Toney Num: [id number] Spec Type: Impression Subm Dr: Makrus Renteria, DO Tissues: PATHPER Procedures: PATHREVIEW Patient: Pankaj Payne [id number] (Continued) Specimen: [id number] Received: 05/01/23 (Continued) Signed (signature on file) Naif Arthur MD 05/02/23 0954 Specimen: [id number] Received: 05/01/23 Status: GIOVANA Feng Num: [id number] Spec Type: Impression Subm Dr: Markus Renteria DO Tissues: CLOVIS Procedures: PATHREVIEW Patient: Pankaj Payne [id number] (Continued) Specimen: [id number] Received: 05/01/23 (Continued) CBC No results available. Specimen: [id number] Received: 05/01/23 Status: GIOVANA Toney Num: [id number] Spec Type: Impression Subm Dr: Markus Renteria DO Tissues: PATHPER Procedures: PATHREVIEW Patient: Pankaj Payne [id number] (Continued) Signed (signature on file) Naif Arthur MD 05/02/23 0983 [facility] 36on 04-05-2023 36 Approving, but needs appt for additional refills. Normal [facility] Documentationon 01-17-2023 Documentation [id number] Pankaj Payne 1945 M Date Provider Department Center 01/17/[address] No family history on file Normal [facility] Office Visiton 09-17-2022 Follow-up visit [id number] Pankaj Payne 1945 M Date Provider Department Center 09/17/2022 ARABELLA SPANN [facility] No family history on file Level of Service:69730 [place] OFFICE/OUTPATIENT ESTABLISHED LOW MDM 20-29 MIN Normal [facility] Albumin [Mass/volume] in Ser um or PlasmaOrdered By: Zoila Castorena on 08-08-2022 Albumin [Mass/Vol] 3.0 g/dL 2.9-4.4 [facility] Folate [Mass/volume] in Seru m or PlasmaOrdered By: Zoila Castorena on 08-08-2022 Folate [Mass/Vol] 40.0 ng/mL >5.9 [facility] Comment on above: Folate reference ran ge: >5.9 ng/mlThe WHO technical consultation on folate and vitamin [id number] has determined that folate concentrations lessthan 4 ng/ml are considered deficient. Haptoglobin [Mass/volume] in Serum or PlasmaOrdered By: Zoila Castorena on 08-08-2022 Haptoglobin [Mass/Vol] 58 mg/dL 44-215 [facility] Lactate dehydrogenase [Enzym atic activity/volume] in Serum or Plasma by Lactate to pyOrdered By: Zoila Castorena on 08-08-2022 LDH Lactate to pyruvate reaction [Catalytic activity/Vol] 221 U/L 140-271 [facility] No Panel InformationOrdered By: Zoila Castorena on 08-08-2022 Protein Electrophoresis M-Jose Not observed g/dL Not Observed [facility] Protein Electrophoresis Note See comment . [facility] Comment on above: Protein electrophore sis scan will follow via computer,mail, or section forest fire warden delivery.Performed at: [address] [id number] Director: Charlie Klein PhD, Phone: [phone] Protein [Mass/volume] in Ser um or PlasmaOrdered By: Zoila Castorena on 08-08-2022 Protein [Mass/Vol] 6.0 g/dL 6.0-8.5 [facility] Serum globulin measurement ( mass/volume)Ordered By: Zoila Castorena on 08-08-2022 Globulin (S) [Mass/Vol] 3.0 g/dL 2.2-3.9 [facility] Serum or plasma albumin/glob ulin mass ratioOrdered By: Zoila Castorena on 08-08-2022 Albumin/Globulin [Mass ratio] 1.0 {ratio} 0.7-1.7 [facility] Serum or plasma alpha 1 glob ulin measurement by electrophoresis (mass/volume)Ordered By: Zoila Castorena on 08-08-2022 Alpha 1 globulin Elph [Mass/Vol] 0.2 g/dL 0.0-0.4 [facility] Serum or plasma alpha 2 glob ulin measurement by electrophoresis (mass/volume)Ordered By: Zoila Castorena on 08-08-2022 Alpha 2 globulin Elph [Mass/Vol] 0.7 g/dL 0.4-1.0 [facility] Serum or plasma beta globuli n measurement by electrophoresis (mass/volume)Ordered By: Zoila Castorena on 08-08-2022 Beta globulin Elph [Mass/Vol] 1.2 g/dL 0.7-1.3 [facility] Serum or plasma gamma globul in measurement by electrophoresis (mass/volume)Ordered By: Zoila Castorena on 08-08-2022 Gamma globulin Elph [Mass/Vol] 1.0 g/dL 0.4-1.8 [facility] Vitamin B12 ser/plasOrdered By: Zoila Castorena on 08-08-2022 Cobalamin (Vitamin B12) [Mass/Vol] 481 pg/mL 180-914 [facility] ECHOCARDIO M/2D COMPLETEon 0 11-08-2021 ECHOCARDIO M/2D COMPLETE Patient: PANKAJ PAYNE Exam Date: 11/08/2021 : 1945 Gender:M Ordering : DR KARL MENON M.D. Admission #: [id number] Family : DR FRANTZ CONLEY M.D. Order #: [id number] CLICK HERE TO VIEW EXAM ECHOCARDIOGRAM REPORT [...] Menon M.D. on 11/08/2021 at 16:55 Normal [facility] Creatinine and Glomerular fi ltration rate.predicted panel (S/P/Bld)Ordered By: Frantz Conley on 10-10-2021 Creatinine [Mass/Vol] 1.11 mg/dL 0.64-1.27 [facility] Estimated glomerular filtrat ion rate (GFR) non- AmericanOrdered By: Frantz Conley on 10-10-2021 GFR/1.73 sq M.predicted among non-blacks MDRD (S/P/Bld) [Vol rate/Area] > 60 mL/Min [facility] No Panel InformationOrdered By: Frantz Conley on 10-10-2021 Estimated GFR () > 60 mL/Min [facility] Comment on above: GFR estimated refere nce range: According to KDOQI guidelines, <60 ml/min/1.73m2 is sufficient to diagnose a patient with chronic kidney disease. Pharmacy Creatinine Clearance (Chem N/A [facility] Serum or plasma urea nitroge n measurement (mass/volume)Ordered By: Frantz Conley on 10-10-2021 Urea nitrogen [Mass/Vol] 16 mg/dL 12-15 [facility] COVID-19 Positive/NegativeOr dered By: Mick Branch on 09-15-2021 SARS-CoV-2 (COVID-19) N gene GÓMEZ+probe Ql (Resp) Negative Negative [facility] Comment on above: Testing for SARS-CoV -2 by RT-PCR This test was developed and its performance characteristics determined by [employer] ([employer]) and validated at the [facility]. This test has not been FDA [...] Basic Metab w/rfx MGon 08-17 (cont.) Normal [facility] Comment on above: Result Comment: Aver age GFR for 70 or more years old: 75 mL/min/1.73sq m Chronic Kidney Disease: <60 mL/min/1.73sq m Kidney failure: <15 mL/min/1.73sq m eGFR calculated using average adult body mass. Additional eGFR calculator available at: http://www.800APP/multiple_crcl_2011.htm Performed By: #### C DP, BMPX #### [facility] [address] [place] [id number] Finishing Trimmer: Tony Yanez MD Anion gap [Moles/Vol] 9 mmol/L Normal 9-17 [facility] Comment on above: Performed By: #### C DP, BMPX #### [facility] [address] [place] [id number] Finishing Trimmer: Tony Yanez MD Calcium [Mass/Vol] 9.0 mg/dL Normal 8.6-10.4 [facility] Comment on above: Performed By: #### C DP, BMPX #### [facility] [address] [place] [address] Finishing Trimmer: Tony Yanez MD Chloride [Moles/Vol] 107 mmol/L Normal 98-107 [facility] Comment on above: Performed By: #### C DP, BMPX #### [facility] [address] [place] [address] 215[address] Finishing Trimmer: Tony Yanez MD CO2 [Moles/Vol] 23 mmol/L Normal 20-31 [facility] Comment on above: Performed By: #### C DP, BMPX #### [facility] [address] [place] [address] 63028 Finishing Trimmer: Tony Yanez MD Creatinine [Mass/Vol] 0.83 mg/dL Normal 0.70-1.20 [facility] Comment on above: Performed By: #### C DP, BMPX #### [facility] [address] [place] [address]133 Finishing Trimmer: Tony Yanez MD GFR, Amer >60 Normal >60 [facility] Comment on above: Performed By: #### C DP, BMPX #### [facility] [address] [place] [address] 19713 Finishing Trimmer: Tony Yanez MD GFR,non Amer >60 Normal >60 [facility] Comment on above: Performed By: #### C DP, BMPX #### [facility] [address] [place] [address] Finishing Trimmer: Tony Yanez MD Glucose [Mass/Vol] 91 mg/dL Normal 70-99 [facility] Comment on above: Performed By: #### C DP, BMPX #### [facility] [address] [place] [address] Finishing Trimmer: Tony Yanez MD Potassium [Moles/Vol] 4.3 mmol/L Normal 3.7-5.3 [facility] Comment on above: Performed By: #### C DP, BMPX #### [facility] [address] [place] [address] 28884 Finishing Trimmer: Tony Yanez MD Sodium [Moles/Vol] 139 mmol/L Normal 135-144 [facility] Comment on above: Performed By: #### C DP, BMPX #### [facility] [address], [place] [phone] Finishing Trimmer: Tony Yanez MD Urea nitrogen [Mass/Vol] 17 mg/dL Normal 8-23 [facility] Comment on above: Performed By: #### C DP, BMPX #### [facility] [address], [place] [phone] Finishing Trimmer: Tony Yanez MD Basic Metabolic Panel w/ Ref nehemias to MGon 08-17-2021 Anion gap [Moles/Vol] 9 mmol/L 9 - 17 mmol/L [facility] Calcium [Mass/Vol] 9.0 mg/dL 8.6 - 10. 4 mg/dL [facility] Chloride [Moles/Vol] 107 mmol/L 98 - 10 7 mmol/L [facility] CO2 [Moles/Vol] 23 mmol/L 20 - 31 mmol/L [facility] Creatinine [Mass/Vol] 0.83 mg/dL 0.70 - 1.20 mg/dL [facility] GFR >60 >60 mL/min [facility] GFR Non- >60 >60 mL/min [facility] GFR/1.73 sq M.predicted MDRD (S/P/Bld) [Vol rate/Area] [facility] Comment on above: Average GFR for 70 o r more years old: 75 mL/min/1.73sq m Chronic Kidney Disease: <60 mL/min/1.73sq m Kidney failure: <15 mL/min/1.73sq m eGFR calculated using average adult body mass. Additional eGFR calculator available at: http://www.Appoet.Crashlytics/multiple_crcl_2012.htm Glucose [Mass/Vol] 91 mg/dL 70 - 99 mg/dL [facility] Potassium [Moles/Vol] 4.3 mmol/L 3.7 - 5.3 mmol/L [facility] Sodium [Moles/Vol] 139 mmol/L 135 - 144 mmol/L [facility] Urea nitrogen (BldV) [Mass/Vol] 17 mg/dL 8 - 23 mg/dL [facility] CBC with Auto Differentialon 08-17-2021 Absolute Eos # 0.11 [facility] Absolute Immature Granulocyte <0.03 [facility] Absolute Lymph # 1.10 [facility] Absolute [place] # 0.53 [facility] RS [facility] Basophils (Bld) [#/Vol] 0.03 10*3/uL [facility] Basophils/100 WBC (Bld) 1 % 0 - 2 % [facility] Eosinophils/100 WBC (Bld) 2 % 1 - 4 % [facility] Hematocrit (Bld) [Volume fraction] 36.2 % Low 40.7 - 50.3 % [facility] Hemoglobin.gastrointes tinal spec 1 Ql (Stl) 12.1 g/dL Low 13.0 - 17.0 g/dL [facility] Immature granulocytes/100 WBC (Bld) 0 % 0 [facility] Interpretation and review of laboratory results Abnormal [facility] Lymphocytes/100 WBC (Bld) 22 % Low 24 - 43 % [facility] MCH (RBC) [Entitic mass] 31.1 pg 25.2 - 33.5 pg [facility] MCHC (RBC) [Mass/Vol] 33.4 g/dL 28.4 - 34.8 g/dL [facility] MCV (RBC) [Entitic vol] 93.1 fL 82.6 - 102.9 fL [facility] Monocytes/100 WBC (Bld) 11 % 3 - 12 % [facility] NRBC Automated 0.0 0.0 per 100 WBC [facility] Platelet distribution width (Bld) [Ratio] 13.2 % 11.8 - 14.4 % [facility] Platelet mean volume (Bld) [Entitic vol] 11.2 fL 8.1 - 13.5 fL [facility] Platelets (Bld) [#/Vol] 94 10*3/uL Low [facility] RBC (Bld) [#/Vol] 3.89 10*6/uL Low 4.21 - 5.77 m/uL [facility] Segmented neutrophils/100 WBC (Bld) 64 % 36 - 65 % [facility] Segs Absolute 3.14 [facility] WBC (Bld) [#/Vol] 4.9 10*3/uL [facility][NOTE 3] CBC with Diffon 08-17-2021 Abs. Basophil 0.03 k/uL Normal 0.00-0.20 [facility] Comment on above: Performed By: #### C DP, BMPX #### [place] [address] Finishing Trimmer: Tony Yanez MD Abs.Imm.Granulocyte <0.03 Normal 0.00-0.30 [facility] Comment on above: Performed By: #### C DP, BMPX #### [place] [address] Finishing Trimmer: Tony Yanez MD Abs.Neutrophil (Seg) 3.14 k/uL Normal 1.50-8.10 [facility] Comment on above: Performed By: #### C DP, BMPX #### [address] [address] Finishing Trimmer: Tony Yanez MD Basophils/100 WBC (Bld) 1 % Normal 0-2 [facility] Comment on above: Performed By: #### C DP, BMPX #### [place] [address] Finishing Trimmer: Tony Yanez MD Eosinophils (Bld) [#/Vol] 0.11 10*3/uL Normal 0.00-0.44 [facility] Comment on above: Performed By: #### C DP, BMPX #### [facility] [address] [place] [address] 85755 Finishing Trimmer: Tony Yanez MD Eosinophils/100 WBC (Bld) 2 % Normal 1-4 [facility] Comment on above: Performed By: #### C DP, BMPX #### [address] [address] Finishing Trimmer: Tony Yanez MD Erythrocyte distribution width (RBC) [Ratio] 13.2 % Normal 11.8-14.4 [facility] Comment on above: Performed By: #### C DP, BMPX #### [facility] [address] [place] [address] 89[address] Finishing Trimmer: Tony Yanez MD Hematocrit (Bld) [Volume fraction] 36.2 % Low 40.7-50.3 [facility] Comment on above: Performed By: #### C DP, BMPX #### [facility] [address] [place] [address] Finishing Trimmer: Tony Yanez MD Hemoglobin (Bld) [Mass/Vol] 12.1 g/dL Low 13.0-17.0 [facility] Comment on above: Performed By: #### C DP, BMPX #### [address] [address] Finishing Trimmer: Tony Yanez MD Immature granulocytes/100 WBC (Bld) 0 % Normal 0 [facility] Comment on above: Performed By: #### C DP, BMPX #### [address] [address] Finishing Trimmer: Tony Yanez MD Lymphocytes (Bld) [#/Vol] 1.10 10*3/uL Normal 1.10-3.70 [facility] Comment on above: Performed By: #### C DP, BMPX #### [facility] [address] [place] [address] 835[address] Finishing Trimmer: Tony Yanez MD Lymphocytes/100 WBC (Bld) 22 % Low 24-43 [facility] Comment on above: Performed By: #### C DP, BMPX #### [facility] [address] [place] [address] Finishing Trimmer: Tony Yanez MD MCH (RBC) [Entitic mass] 31.1 pg Normal 25.2-33.5 [facility] Comment on above: Performed By: #### C DP, BMPX #### [address] [address] Finishing Trimmer: Tony Yanez MD MCHC (RBC) [Mass/Vol] 33.4 g/dL Normal 28.4-34.8 [facility] Comment on above: Performed By: #### C DP, BMPX #### [address] [address] Finishing Trimmer: Tony Yanez MD MCV (RBC) [Entitic vol] 93.1 fL Normal 82.6-102.9 [facility] Comment on above: Performed By: #### C DP, BMPX #### [address] [address] Finishing Trimmer: Tony Yanez MD Monocytes (Bld) [#/Vol] 0.53 10*3/uL Normal 0.10-1.20 [facility] Comment on above: Performed By: #### C DP, BMPX #### [address] [address] Finishing Trimmer: Tony Yanez MD Monocytes/100 WBC (Bld) 11 % Normal 3-12 [facility] Comment on above: Performed By: #### C DP, BMPX #### [address] [address] Finishing Trimmer: Tony Yanez MD Neutrophil (Seg) 64 % Normal 36-65 [facility] Comment on above: Performed By: #### C DP, BMPX #### [address] [address] Finishing Trimmer: Tony Yanez MD NRBC Automated 0.0 per 100 WBC Normal 0.0 [facility] Comment on above: Performed By: #### C DP, BMPX #### [address] [address] Finishing Trimmer: Tony Yanez MD Platelet mean volume (Bld) [Entitic vol] 11.2 fL Normal 8.1-13.5 [facility] Comment on above: Performed By: #### C DP, BMPX #### [address] [address] Finishing Trimmer: Tony Yanez MD Platelets (Bld) [#/Vol] 94 10*3/uL Low 138-453 [facility] Comment on above: Performed By: #### C DP, BMPX #### [address] [address] Finishing Trimmer: Tony Yanez MD RBC (Bld) [#/Vol] 3.89 10*6/uL Low 4.21-5.77 [facility] Comment on above: Performed By: #### C DP, BMPX #### [address] [address] Finishing Trimmer: Tony Yanez MD WBC (Bld) [#/Vol] 4.9 10*3/uL Normal 3.5-11.3 [facility] Comment on above: Performed By: #### C DP, BMPX #### [address] [address] Finishing Trimmer: Tony Yanez MD CT FACIAL BONES WO [...] SYSTEM PROVIDED HISTORY: Impact with object riding unbundler TECHNOLOGIST PROVIDED HISTORY: Impact with object riding unbundler Decision Support Exception - unselect if not [...] the left face and scalp. Interpreted by: Aguustin Hodges MD Signed by: Augustin Hodges MD 08/16/21 Final result Normal [facility] MRSA DNA Probe, Nasalon - MRSA, DNA, Nasal Negative NEGATIVE [facility] Comment on above: NEGATIVE: MRSA DNA n ot detected by nucleic acid amplification. Results should be used as an adjunct to nosocomial control efforts to identify patients needing enhanced precautions. The test is not intended to identify patients with staphylococcal infections. Results should not be used to guide or monitor treatment for MRSA infections. Specimen Description .NASAL SWAB [facility] MRSA, DNA, Nasalon MRSA, DNA, Nasal Negative Normal NEG [facility] Comment on above: Result Comment: [...] infections. Performed By: #### M RSANO #### [facility] [address] [place], [place] [phone] Finishing Trimmer: Tony Yanez MD Specimen Description .NASAL SWAB Normal [facility] Comment on above: Performed By: #### M RSANO #### [facility] [address], [place] [phone] Finishing Trimmer: Tony Yanez MD CBC AUTO DIFFon 08-16-2021 BASO # 0.0 103/ul Normal 0.0-0.1 [facility] Comment on above: Performed By: #### C VDTBH #### [facility] [address] [place] [address] Dr. Natalya Arthur Basophils/100 WBC (Bld) 0.6 % Normal 0.2-2.0 [facility] Comment on above: Performed By: #### C VDTBH #### [facility] [address] [place] [address] Dr. Natalya Arthur EO # 0.1 103/ul Normal 0.0-0.7 [facility] Comment on above: Performed By: #### C VDTBH #### [facility] [address] [place] [address] Dr. Natalya Arthur Eosinophils/100 WBC (Bld) 1.9 % Normal 0.9-7.0 [facility] Comment on above: Performed By: #### C VDTBH #### [facility] [address] [place] [address] Dr. Natalya Arthur Erythrocyte distribution width (RBC) [Ratio] 13.1 % Normal 11.0-15.0 [facility] Comment on above: Performed By: #### C VDTBH #### [facility] [address] [place] [address] Dr. Natalya Arthur Hematocrit (Bld) [Volume fraction] 38.5 % Critically low 42.0-54.0 [facility] Comment on above: Performed By: #### C VDTBH #### [facility] [address] [place] [address] Dr. Natalya Arthur Hemoglobin (Bld) [Mass/Vol] 12.7 g/dL Critically low 14.0-18.0 [facility] Comment on above: Performed By: #### C VDTBH #### [facility] [address] [address] [address] Natalya Arthur IG # 0.03 10e3/ul Normal 0.00-0.03 [facility] Comment on above: Performed By: #### C VDTBH #### [facility] [address] [address] [address] Natalya Arthur IG % 0.6 % Critically high 0.0-0.5 [facility] Comment on above: Performed By: #### C VDTBH #### [facility] [address] [address] [address] Natalya Arthur LYMPH # 0.8 103/ul Critically low 1.2-3.8 [facility] Comment on above: Performed By: #### C VDTBH #### [facility] [address] [place] [address] Dr. Natalya Arthur Lymphocytes/100 WBC (Bld) 15.3 % Critically low 20.5-60.0 [facility] Comment on above: Performed By: #### C VDTBH #### [facility] [address] [address] [address] Natalya Arthur MANUAL DIFF REQ NO Normal [facility] Comment on above: Performed By: #### C VDTBH #### [facility] [address] [address] [address] Natalya Arthur MCH (RBC) [Entitic mass] 31.0 pg Normal 25.9-34.0 [facility] Comment on above: Performed By: #### C VDTBH #### [facility] [address] [address] [address] Natalya Arthur MCHC (RBC) [Mass/Vol] 33.0 g/dL Normal 29.9-35.2 [facility] Comment on above: Performed By: #### C VDTBH #### [facility] [address] [address] [address] Natalya Arthur MCV (RBC) [Entitic vol] 93.9 fL Normal 80.0-94.0 [facility] Comment on above: Performed By: #### C VDTBH #### [facility] [address] [address] [address] Natalya Arthur MONO # 0.4 103/ul Normal 0.3-0.8 [facility] Comment on above: Performed By: #### C VDTBH #### [facility] [address] [address] [address] Natalya Arthur Monocytes/100 WBC (Bld) 8.0 % Normal 1.7-12.0 [facility] Comment on above: Performed By: #### C VDTBH #### [facility] [address] [place] [address] Dr. Natalya Arthur NEUT # 3.8 103/ul Normal 1.4-6.5 [facility] Comment on above: Performed By: #### C VDTBH #### [facility] [address] [place] [address] Dr. Natalya Arthur Neutrophils/100 WBC (Bld) 73.6 % Normal 43.0-75.0 [facility] Comment on above: Performed By: #### C VDTBH #### [facility] [address] [place] [address] Dr. Natalya Arthur Platelet mean volume (Bld) [Entitic vol] 10.8 fL Normal 9.5-13.5 [facility] Comment on above: Performed By: #### C VDTBH #### [facility] [address] [place] [address] Dr. Natalya Arthur PLT 100 103/ul Critically low 150-450 [facility] Comment on above: Performed By: #### C VDTBH #### [facility] [address] [place] [address] Dr. Natalya Arthur RBC 4.10 106/ul Critically low 4.70-6.10 [facility] Comment on above: Performed By: #### C VDTBH #### [facility] [address] [place] [address] Dr. Natalya Arthur WBC 5.2 103/ul Normal 4.0-11.0 [facility] Comment on above: Performed By: #### C VDTBH #### [facility] [address] CSPINE WO CONon [...] ARTHUR LÓPEZ Date: 2021-08-16 17:00 Normal [facility] CT FACIAL BONES WO CONTRASTo n 08-16-2021 No acute facial frac ture. Soft tissue swelling and ecchymosis of the left face and scalp. PN RIS CONSOLIDATED EXAMINATION: CT OF THE FACE [...] SYSTEM PROVIDED HISTORY: Impact with object riding unbundler TECHNOLOGIST PROVIDED HISTORY: Impact with object riding unbundler Decision Support Exception - unselect if not [...] focus of subcutaneous emphysema left periorbital region. [facility] [[email or web address]] Augustin Potter MD - 08/16/2021 EXAMINATION: CT OF THE [...] SYSTEM PROVIDED HISTORY: Impact with object riding unbundler TECHNOLOGIST PROVIDED HISTORY: Impact with object riding unbundler Decision Support Exception - unselect if not [...] ecchymosis of the left face and scalp. [employer] Work Phone: CT FACIAL BONES WO CONTRASTO rdered By: Augustin Hodges on 08-16-2021 [employer] Phone: CT HEAD WO CONon 08-16-2021 CT [...] by: SUKH CROFT Date: 2021-08-16 15:37 Normal [facility] CT HEAD WO CONTRASTon 2021 CT HEAD [...] Hardeep Godwin MD 08/16/21 Final result Normal [facility] Minimal left frontal subarachnoid hemorrhage in 1 of the sulci. No evidence of extra-axial collections. Prominent left frontal and parietal scalp swelling/hemorrhage. The findings were sent to the Radiology Results Communication Center at 9:22 pm on 08/16/2021 to be communicated to a licensed caregiver. [facility] [[email or web address]] RIS CONSOLIDATED EXAMINATION: CT OF THE HEAD [...] TISSUES/SKULL: There is left frontoparietal scalp swelling/hemorrhage. [facility] [[email or web address]] Hardeep Hurley MD - 08/16/2021 EXAMINATION: CT OF THE [...] to be communicated to a licensed caregiver. [employer] Phone: CT HEAD WO CONTRASTOrdered B y: Hardeep Godwin on 08-16-2021 [facility] [employer] Phone: Covid-19 PCR (CVDTBH)on 07-24 SARS-CoV-2 (COVID-19) RNA GÓMEZ+probe Ql (Unsp spec) Not detected Normal NOT DETECTED [facility] Comment on above: Result Comment: This test is not yet approved or cleared by the [place] FDA. When there are no FDA-approved or cleared tests available, and other criteria are met, FDA can make tests available under an emergency access mechanism called an Emergency Use Authorization (EUA). The EUA for this test is supported by the [place] of Health and Human Service's (HHS's) declaration [...] SARS-CoV-2. Performed By: #### C VDTBH #### [facility] [address] [place] [address] Dr. Natalya Arthur No Panel Informationon 08-16 Radiology Study observation (narrative) [facility] [employer] Work Phone: PROF CHEM 8 (BAS METB)on Anion gap [Moles/Vol] 13.6 mmol/L Normal [facility] Comment on above: Performed By: #### C VDTBH #### [facility] [address] [place] [address] Dr. Natalya Arthur Calcium [Mass/Vol] 9.0 mg/dL Normal 8.5-10.1 [facility] Comment on above: Performed By: #### C VDTBH #### [facility] [address] [place] [address] Dr. Natalya Arthur Chloride [Moles/Vol] 107 mmol/L Normal 98-107 [facility] Comment on above: Performed By: #### C VDTBH #### [facility] [address] [place] [address] Dr. Natalya Arthur CO2 [Moles/Vol] 24.4 mmol/L Normal 21.0-32.0 [facility] Comment on above: Performed By: #### C VDTBH #### [facility] [address] [place] [address] Dr. Natalya Arthur Creatinine [Mass/Vol] 1.09 mg/dL Normal 0.70-1.30 [facility] Comment on above: Performed By: #### C VDTBH #### [facility] [address] [place] [address] Dr. Natalya Arthur EGFR-AF GUAMANIAN >60 Normal >=60 [facility] Comment on above: Performed By: #### C VDTBH #### [facility] [address] [address] [address] Natalya Arthur EGFR-NON AF GUAMANIAN >60 Normal >=60 [facility] Comment on above: Performed By: #### C VDTBH #### [facility] [address] [address] [address] Natalya Arthur Glucose [Mass/Vol] 111 mg/dL Critically high 74-[address] [facility] Comment on above: Performed By: #### C VDTBH #### [facility] [address] [place] [address] Dr. Natalya Arthur Potassium [Moles/Vol] 4.0 mmol/L Normal 3.5-5.1 [facility] Comment on above: Performed By: #### C VDTBH #### [facility] [address] [address] [address] Natalya Arthur Sodium [Moles/Vol] 141 mmol/L Normal 136-145 [facility] Comment on above: Performed By: #### C VDTBH #### [facility] [address] [address] [address] Natalya Arthur Urea nitrogen [Mass/Vol] 21.0 mg/dL Critically high 7.0-18.0 [facility] Comment on above: Performed By: #### C VDTBH #### [facility] [address] [address] [address] Natalya Arthur Urea nitrogen/Creatinine [Mass ratio] 19.3 mg/mg Normal [facility] Comment on above: Performed By: #### C VDTBH #### [facility] [address] [place] [address] Dr. Natalya Arthur PROTIMEon 08-16-2021 INR Coag (PPP) [Relative time] 1.12 {INR} Normal [facility] Comment on above: Performed By: #### F ETIBC, FERR #### [facility] [address] [place] [address] Dr. Natalya Arthur INR GUIDELINES SEE BELOW Normal [facility] Comment on above: Result Comment: REFUGIO RED INR: 2.0 - 3.0 CONDITIONS NOT LISTED BELOW 2.5 - 3.5 FOR PROSTHETIC HEART VALVE REPLACEMENT 2.5 - 3.5 RECURRENT THROMBOSIS Performed By: #### F ETIBC, FERR #### [facility] [address] [place] [address] Dr. Natalya Arthur PT Coag (PPP) [Time] 12.0 s Critically high 9.0-11.6 [facility] Comment on above: Performed By: #### F ETIBC, FERR #### [facility] [address] [place] [address] Dr. Natalya Arthur PTTon 08-16-2021 aPTT Coag (Bld) [Time] 28.6 s Normal 22.3-36.2 [facility] Comment on above: Performed By: #### F ETIBC, FERR #### [facility] [address] [place] [address] Dr. Natalya Arthur [id number] 2021 [id number], Serum 125 mg/dL Normal 101-187 [facility] Comment on above: Performed By: #### A LPHA-1 #### [facility] [address] [place] [address] Dr. Natalya Arthur BETHANIE EIA W/REFLEX 5 BIOMARKER Son 07-13-2021 BETHANIE Direct Negative Normal Negative [facility] Comment on above: Performed By: #### C VDTBH #### [facility] [address] [place] [address] Dr. Natalya Arthur CERULOPLASMINon 07-13-2021 Ceruloplasmin 19.0 mg/dL Normal 16.0-31.0 [facility] Comment on above: Performed By: #### C EUROPL #### [facility] [address] [place] [address] Dr. Natalya Arthur SMOOTH MUSCLE ANTIBODYon Actin (Smooth Muscle) Antibody 25 Units Critically high 0-19 [facility] Comment on above: Result Comment: Nega tive 0 - 19 Weak positive 20 - 30 Moderate to strong positive >30 . Actin Antibodies are found in 52-85% of patients with autoimmune hepatitis or chronic active hepatitis and in 22% of patients with primary biliary cirrhosis. Performed By: #### C VDTBH #### [facility] [address] [place] [address] Dr. Natalya Arthur CBC AUTO DIFFon 07-12-2021 BASO # 0.0 103/ul Normal 0.0-0.1 [facility] Comment on above: Performed By: #### F ETIBC, FERR #### [facility] [address] [place] [address] Dr. Natalya Arthur Basophils/100 WBC (Bld) 0.4 % Normal 0.2-2.0 [facility] Comment on above: Performed By: #### F ETIBC, FERR #### [facility] [address] [place] [address] Dr. Natalya Arthur EO # 0.2 103/ul Normal 0.0-0.7 [facility] Comment on above: Performed By: #### F ETIBC, FERR #### [facility] [address] [place] [address] Dr. Natalya Arthur Eosinophils/100 WBC (Bld) 4.0 % Normal 0.9-7.0 [facility] Comment on above: Performed By: #### F ETIBC, FERR #### [facility] [address] [place] [address] Dr. Natalya Arthur Erythrocyte distribution width (RBC) [Ratio] 13.8 % Normal 11.0-15.0 [facility] Comment on above: Performed By: #### F ETIBC, FERR #### [facility] [address] [place] [address] Dr. Natalya Arthur Hematocrit (Bld) [Volume fraction] 41.5 % Critically low 42.0-54.0 [facility] Comment on above: Performed By: #### F ETIBC, FERR #### [facility] [address] [address] [address] Natalya Arthur Hemoglobin (Bld) [Mass/Vol] 13.2 g/dL Critically low 14.0-18.0 [facility] Comment on above: Performed By: #### F ETIBC, FERR #### [facility] [address] [place] [address] Dr. Natalya Arthur IG # 0.02 10e3/ul Normal 0.00-0.03 [facility] Comment on above: Performed By: #### F ETIBC, FERR #### [facility] [address] [place] [address] Dr. Natalya Arthur IG % 0.4 % Normal 0.0-0.5 [facility] Comment on above: Performed By: #### F ETIBC, FERR #### [facility] [address] [place] [address] Dr. Natalya Arthur LYMPH # 0.8 103/ul Critically low 1.2-3.8 [facility] Comment on above: Performed By: #### F ETIBC, FERR #### [facility] [address] [place] [address] Dr. Natalya Arthur Lymphocytes/100 WBC (Bld) 17.0 % Critically low 20.5-60.0 [facility] Comment on above: Performed By: #### F ETIBC, FERR #### [facility] [address] [place] [address] Dr. Natalya Arthur MANUAL DIFF REQ NO Normal [facility] Comment on above: Performed By: #### F ETIBC, FERR #### [facility] [address] [place] [address] Dr. Natalya Arthur MCH (RBC) [Entitic mass] 30.9 pg Normal 25.9-34.0 [facility] Comment on above: Performed By: #### F ETIBC, FERR #### [facility] [address] [place] [address] Dr. Natalya Arthur MCHC (RBC) [Mass/Vol] 31.8 g/dL Normal 29.9-35.2 [facility] Comment on above: Performed By: #### F ETIBC, FERR #### [facility] [address] [place] [address] Dr. Natalya Arthur MCV (RBC) [Entitic vol] 97.2 fL Critically high 80.0-94.0 [facility] Comment on above: Performed By: #### F ETIBC, FERR #### [facility] [address] [place] [address] Dr. Natalya Arthur MONO # 0.5 103/ul Normal 0.3-0.8 [facility] Comment on above: Performed By: #### F ETIBC, FERR #### [facility] [address] [place] [address] Dr. Natalya Arthur Monocytes/100 WBC (Bld) 10.5 % Normal 1.7-12.0 [facility] Comment on above: Performed By: #### F ETIBC, FERR #### [facility] [address] [place] [address] Dr. Natalya Arthur NEUT # 3.2 103/ul Normal 1.4-6.5 [facility] Comment on above: Performed By: #### F ETIBC, FERR #### [facility] [address] [place] [address] Dr. Natalya Arthur Neutrophils/100 WBC (Bld) 67.7 % Normal 43.0-75.0 [facility] Comment on above: Performed By: #### F ETIBC, FERR #### [facility] [address] [place] [address] Dr. Natalya Arthur Platelet mean volume (Bld) [Entitic vol] 10.7 fL Normal 9.5-13.5 [facility] Comment on above: Performed By: #### F ETIBC, FERR #### [facility] [address] [place] [address] Dr. Natalya Arthur PLT 106 103/ul Critically low 150-450 [facility] Comment on above: Result Comment: smea r reviewed Performed By: #### F ETIBC, FERR #### [facility] [address] [place] [address] Dr. Natalya Arthur RBC 4.27 106/ul Critically low 4.70-6.10 [facility] Comment on above: Performed By: #### F ETIBC, FERR #### [facility] [address] [place] [address] Dr. Natalya Arthur WBC 4.8 103/ul Normal 4.0-11.0 [facility] Comment on above: Performed By: #### F ETIBC, FERR #### [facility] [address] [place] [address] Dr. Natalya Arthur FERRITINon 07-12-2021 Ferritin [Mass/Vol] 94.0 ng/mL Normal 17.9-464.0 [facility] Comment on above: Performed By: #### F ETIBC, FERR #### [facility] [address] [place] [address] Dr. Natalya Arthur IRON AND TIBCon 07-12-2021 % SATURATION 26.8 % Normal [facility] Comment on above: Performed By: #### F ETIBC, FERR #### [facility] [address] [place] [address] Dr. Natalya Arthur Iron [Mass/Vol] 106.0 ug/dL Normal 49.0-181.0 [facility] Comment on above: Performed By: #### F ETIBC, FERR #### [facility] [address] [place] [address] Dr. Natalya Arthur TIBC DIRECT 395.0 ug/dL Normal 261.0-497. 0 [facility] Comment on above: Performed By: #### F ETIBC, FERR #### [facility] [address] [place] [address] Dr. Natalya Arthur LIPID PROFILEon 07-12-2021 CHOL-HDL RATIO NORM SEE BELOW Normal [facility] Comment on above: Result Comment: 3.3 - 4.4 LOW RISK 4.4 - 7.1 AVERAGE RISK 7.1 - 11.0 MODERATE RISK >11.0 HIGH RISK Performed By: #### L IVER, LIPID #### [facility] [address] [place] [address] Dr. Natalya Arthur Cholesterol [Mass/Vol] 139 mg/dL Normal <=200 [facility] Comment on above: Performed By: #### L IVER, LIPID #### [facility] [address] [address] [address] Natalya Arthur Cholesterol in HDL [Mass/Vol] 58 mg/dL Normal 40-60 [facility] Comment on above: Performed By: #### L IVER, LIPID #### [facility] [address] [address] [address] Natalya Arthur Cholesterol in LDL [Mass/Vol] 58.8 mg/dL Normal [facility] Comment on above: Performed By: #### L IVGAVIN, LIPID #### [facility] [address] [address] [address] Natalya Arthur Cholesterol.total/Chol esterol in HDL [Mass ratio] 2.4 {ratio} Normal [facility] Comment on above: Performed By: #### L IVGAVIN, LIPID #### [facility] [address] [place] [address] Dr. Natalya Arthur HDL NORMAL > or = 60 mg/dl - LO W CARDIOVASCULAR RISK <40 mg/dl - HIGH CARDIOVASCULAR RISK Normal [facility] Comment on above: Performed By: #### L IVGAVIN, LIPID #### [facility] [address] [address] [address] Natalya Arthur LDL CALC NORMAL SEE BELOW Normal [facility] Comment on above: Result Comment: <100 mg/dl OPTIMAL 100 - 129 mg/dl NEAR OR ABOVE OPTIMAL 130 - 159 mg/dl BORDERLINE HIGH 160 - 189 mg/dl HIGH >190 mg/dl VERY HIGH Performed By: #### L IVER, LIPID #### [facility] [address] [address] [address] Natalya Arthur Triglyceride [Mass/Vol] 111 mg/dL Normal <=150 [facility] Comment on above: Performed By: #### L IVGAVIN, LIPID #### [facility] [address] [address] [address] Natalya Arthur VLDL CALC 22.2 mg/dL Normal [facility] Comment on above: Performed By: #### L IVGAVIN, LIPID #### [facility] [address] [address] [address] Natalya Arthur LIVER PROFILEon 07-12-2021 Albumin [Mass/Vol] 3.4 g/dL Normal 3.4-5.0 [facility] Comment on above: Performed By: #### L IVER, LIPID #### [facility] [address] [address] [address] Natalya Arthur Albumin/Globulin [Mass ratio] 0.9 {ratio} Normal [facility] Comment on above: Performed By: #### L IVER, LIPID #### [facility] [address] [address] [address] Natalya Arthur ALP [Catalytic activity/Vol] 129 U/L Critically high 46-116 [facility] Comment on above: Performed By: #### L IVER, LIPID #### [facility] [address] [place] [address] Dr. Natalya Arthur ALT [Catalytic activity/Vol] 72 U/L Critically high 16-63 [facility] Comment on above: Performed By: #### L IVER, LIPID #### [facility] [address] [place] [address] Dr. Natalya Arthur AST [Catalytic activity/Vol] 57 U/L Critically high 15-37 [facility] Comment on above: Performed By: #### L IVER, LIPID #### [facility] [address] [place] [address] Dr. Natalya Arthur BILI, CONJUGATED 0.2 mg/dL Normal 0.0-0.3 [facility] Comment on above: Performed By: #### L IVER, LIPID #### [facility] [address] [address] [address] Natalya Arthur Bilirubin [Mass/Vol] 0.6 mg/dL Normal 0.2-1.3 [facility] Comment on above: Performed By: #### L IVER, LIPID #### [facility] [address] [address] [address] Natalya Arthur Globulin (S) [Mass/Vol] 3.9 g/dL Normal [facility] Comment on above: Performed By: #### L IVER, LIPID #### [facility] [address] [address] [address] Natalya Arthur Protein [Mass/Vol] 7.3 g/dL Normal 6.1-8.2 [facility] Comment on above: Performed By: #### L IVER, LIPID #### [facility] [address] [place] [address] Dr. Natalya Arthur PROTIMEon 07-12-2021 INR Coag (PPP) [Relative time] 1.10 {INR} Normal [facility] Comment on above: Performed By: #### F ETIBC, FERR #### [facility] [address] [place] [address] Dr. Natalya Arthur INR GUIDELINES SEE BELOW Normal [facility] Comment on above: Result Comment: REFUGIO RED INR: 2.0 - 3.0 CONDITIONS NOT LISTED BELOW 2.5 - 3.5 FOR PROSTHETIC HEART VALVE REPLACEMENT 2.5 - 3.5 RECURRENT THROMBOSIS Performed By: #### F ETIBC, FERR #### [facility] [address] [place] [address] Dr. Natalya Arthur PT Coag (PPP) [Time] 11.8 s Critically high 9.0-11.6 [facility] Comment on above: Performed By: #### F ETIBC, FERR #### [facility] [address] [place] [address] Dr. Natalya Arthur Comprehensive Metabolic Pane jamaal 06-07-2021 Albumin [Mass/Vol] 3.9 g/dL Normal 3.6-5.1 [facility] Senior Process Analyst Comment on above: Performed By: #### C MP #### [facility] [address] [place] [place] [id number] Albumin/Globulin [Mass ratio] 1.4 {ratio} Normal 1.0-2.5 [facility] Senior Process Analyst Comment on above: Performed By: #### C MP #### [facility] [address] [place], [place] [id number] ALP [Catalytic activity/Vol] 128 U/L Normal 40-129 [facility] Process Analyst Comment on above: Performed By: #### C MP #### [facility] [address] [place], [place] [id number] ALT [Catalytic activity/Vol] 45 U/L Normal 9-46 [facility] Comment on above: Result Comment: 02/22 Female reference range changed. Performed By: #### C MP #### [facility] [address] [place], [place] [id number] Anion gap [Moles/Vol] 15 mmol/L Normal 12-20 [facility] Comment on above: Result Comment: Effe ctive 03/30/2019 reference range changed. Performed By: #### C MP #### [facility] [address] [place], [place] [id number] AST [Catalytic activity/Vol] 49 U/L High 10-40 [facility] Comment on above: Performed By: #### C MP #### [facility] [address] [place], [place] [id number] Bilirubin [Mass/Vol] 0.36 mg/dL Normal 0.30-1.[address] [facility] Comment on above: Performed By: #### C MP #### [facility] [address] [place], [place] [id number] BUN/CREA 15 Ratio Normal 6-22 [facility] Comment on above: Performed By: #### C MP #### [facility] [address] [place], [place] [id number] Calcium [Mass/Vol] 9.2 mg/dL Normal 8.6-10.2 [facility] Comment on above: Performed By: #### C MP #### [facility] [address] [facility] [place] [id number] Chloride [Moles/Vol] 104 mmol/L Normal 98-[address] [facility] Comment on above: Performed By: #### C MP #### [facility] [address] [facility] [place] [id number] CO2 [Moles/Vol] 24 mmol/L Normal 20-31 [facility] Comment on above: Performed By: #### C MP #### [facility] [address] [facility] [place] [id number] Creatinine [Mass/Vol] 1.0 mg/dL Normal 0.7-1.4 [facility] Comment on above: Performed By: #### C MP #### [facility] [address] [place], [place] [id number] eGFRAA 90 mL/min/1.73m2 Normal >60 [facility] Specialist Comment on above: Performed By: #### C MP #### [facility] [address] [place], [place] [id number] eGFRNAA 74 mL/min/1.73m2 Normal >60 [facility] Comment on above: Performed By: #### C MP #### [facility] [address] [place], [place] [id number] Globulin (S) [Mass/Vol] 2.7 g/dL Normal 1.9-3.7 [facility] Specialist Comment on above: Performed By: #### C MP #### [facility] [address] [place], [place] [id number] Glucose [Mass/Vol] 111 mg/dL High 65-99 [facility] Specialist Comment on above: Result Comment: For FASTING Glucose --- ADA reference ranges: Normal 65-99 mg/dl Prediabetes 100-125 Diabetes >/= 126 Performed By: #### C MP #### [facility] [address] [place], [place] [id number] Potassium [Moles/Vol] 4.5 mmol/L Normal 3.5-5.5 [facility] Comment on above: Performed By: #### C MP #### [facility] [address] [place], [place] [id number] Protein [Mass/Vol] 6.6 g/dL Normal 6.1-8.1 [facility] Specialist Comment on above: Performed By: #### C MP #### [facility] [address] [place], [place] [id number] Sodium [Moles/Vol] 139 mmol/L Normal 135-146 [facility] Senior Process Analyst Comment on above: Performed By: #### C MP #### [facility] [address] [place], [place] [id number] Urea nitrogen [Mass/Vol] 15 mg/dL Normal 7-25 [facility] Specialist Comment on above: Performed By: #### C MP #### [facility] [address] [id number] Q - HEPATITIS PANEL ABC GENE RAL WITH REFLEXon 06-07-2021 HEPATITIS A AB, TOTAL Non-Reactive Normal NON-RE ACTI VE [facility] Specialist Comment on above: Order Comment: [facility] performed at: [place], [employer] [facility], [address] [facility], [address] [place] [address], [address] [place] [address], Family Support Specialist: Sd Sharma MD [facility] Collection Date/Time: [facility] Results Received Date/Time: [facility] Reported Date/Time: Result Comment: For additional information, please refer to http://education.Questra/faq/YOF760 (This link is being provided for informational/ educational purposes only.) Performed By: #### 6 [id number] #### [facility] [address] [place] [address] HEPATITIS B CORE AB TOTAL Non-Reactive Normal NON-REACTI VE [facility] Comment on above: Order Comment: [facility] performed at: [employer] [facility], [address] [place] [address], [address] [place] [address], [address] [place] [address], Family Support Specialist: Sd Sharma MD [facility] Date/Time: [facility] Results Received Date/Time: [facility] Reported Date/Time: Performed By: #### 6 [id number] #### [facility] [address] [place] [address] HEPATITIS B SURFACE ANTIBODY QL Non-Reactive Normal NON-REACTI VE [facility] Comment on above: Order Comment: [facility] performed at: [employer] [facility], [address] [place] [address], [address] [place] [address], [address] [place] [address], Family Support Specialist: Sd Sharma MD [facility] Date/Time: [facility] Results Received Date/Time: [facility] Reported Date/Time: Performed By: #### 6 [id number] #### [facility] [address] [place] [address] HEPATITIS B SURFACE ANTIGEN Non-Reactive Normal NON-REACTI VE [facility] Comment on above: Order Comment: [facility] performed at: [place], [employer] [facility], [address] [facility], [address] [place] [address], [address] [place] [address], Family Support Specialist: Sd Sharma MD [facility] Date/Time: [facility] Results Received Date/Time: [facility] Reported Date/Time: Performed By: #### 6 [id number] #### [facility] [address] [place] [address] HEPATITIS C ANTIBODY Non-Reactive Normal NON-AMANDA CTI VE [facility] Comment on above: Order Comment: [facility] performed at: [place], [employer] [facility], [address] [place] [address], [address] [place] [address], [address] [place] [address], Family Support Specialist: Sd Sharma MD [facility] Date/Time: [facility] Results Received Date/Time: [facility] Reported Date/Time: Performed By: #### 6 [id number] #### [facility] [address] [place] [address] SIGNAL TO CUT-OFF 0.02 Normal <1.00 [facility] Comment on above: Order Comment: [facility] performed at: [place], [employer] [facility], [address] [place] [address], [address] [place] [address], [address] [place] [address], Family Support Specialist: Sd Sharma MD [facility] Date/Time: [facility] Results Received Date/Time: [facility] Reported Date/Time: Result Comment: HCV antibody was non-reactive. There is no laboratory evidence of HCV infection. In most cases, no further action is required. However, if recent HCV exposure is suspected, a test for HCV RNA (test code 79800) is suggested. For additional information please refer to http://education.Questra/faq/AJW79d6 (This link is being provided for informational/ educational purposes only.) Performed By: #### 6 [id number] #### [facility] [address] [place] [address] Complete Blood Count with Au to Diffon 05-01-2021 Basophils (Bld) [#/Vol] 0.05 10*3/uL Normal 0.00-0.20 [facility] Specialist Comment on above: Performed By: #### C BCAD, CMP, VITD, TSH reflex FT4, LIPD #### [facility] [address] [place], [place] [id number] Basophils/100 WBC (Bld) 1.1 % Normal [facility] Specialist Comment on above: Performed By: #### C BCAD, CMP, VITD, TSH reflex FT4, LIPD #### [facility] [address] [place], [place] [id number] Eosinophils (Bld) [#/Vol] 0.29 10*3/uL Normal 0.02-0.50 [facility] Senior Process Analyst Comment on above: Performed By: #### C BCAD, CMP, VITD, TSH reflex FT4, LIPD #### [facility] [address] [place], [place] [id number] Eosinophils/100 WBC (Bld) 6.3 % Normal [facility] Senior Process Analyst Comment on above: Performed By: #### C BCAD, CMP, VITD, TSH reflex FT4, LIPD #### [facility] [address] [place], [place] [id number] Erythrocyte distribution width (RBC) [Ratio] 12.9 % Normal 11.0-15.0 [facility] Specialist Comment on above: Performed By: #### C BCAD, CMP, VITD, TSH reflex FT4, LIPD #### [facility] [address] [place], [place] [id number] Hematocrit (Bld) [Volume fraction] 40.4 % Normal 38.5-50.0 [facility] Special[facility] Comment on above: Performed By: #### C BCAD, CMP, VITD, TSH reflex FT4, LIPD #### [facility] [address] [place], [place] [id number] Hemoglobin (Bld) [Mass/Vol] 13.1 g/dL Normal 13.0-17.1 [facility] Specialist Comment on above: Performed By: #### C BCAD, CMP, VITD, TSH reflex FT4, LIPD #### [facility] [address] [place], [place] [id number] Lymphocytes (Bld) [#/Vol] 0.9 10*3/uL Normal 0.9-3.9 [facility] Specialist Comment on above: Performed By: #### C BCAD, CMP, VITD, TSH reflex FT4, LIPD #### [facility] [address] [place], [place] [id number] Lymphocytes/100 WBC (Bld) 18.6 % Normal [facility] Comment on above: Performed By: #### C BCAD, CMP, VITD, TSH reflex FT4, LIPD #### [facility] [address] [place], [place] [id number] MCH (RBC) [Entitic mass] 31.0 pg Normal 27.0-33.0 [facility] Comment on above: Performed By: #### C BCAD, CMP, VITD, TSH reflex FT4, LIPD #### [facility] [address] [place], [place] [id number] MCHC (RBC) [Mass/Vol] 32.4 g/dL Normal 32.0-36.0 [facility] Comment on above: Performed By: #### C BCAD, CMP, VITD, TSH reflex FT4, LIPD #### [facility] [address] [place], [place] [id number] MCV (RBC) [Entitic vol] 96 fL Normal 80-100 [facility] Specialist Comment on above: Performed By: #### C BCAD, CMP, VITD, TSH reflex FT4, LIPD #### [facility] [address] [place], [place] [id number] Monocytes (Bld) [#/Vol] 0.4 10*3/uL Normal 0.2-0.9 [facility] Specialist Comment on above: Performed By: #### C BCAD, CMP, VITD, TSH reflex FT4, LIPD #### [facility] [address] [place], [place] [id number] Monocytes/100 WBC (Bld) 8.4 % Normal [facility] Specialist Comment on above: Performed By: #### C BCAD, CMP, VITD, TSH reflex FT4, LIPD #### [facility] [address] [place], [place] [id number] Neutrophils (Bld) [#/Vol] 3.0 10*3/uL Normal 1.5-7.8 [facility] Specialist Comment on above: Performed By: #### C BCAD, CMP, VITD, TSH reflex FT4, LIPD #### [facility] [address] [place], [place] [id number] Neutrophils/100 WBC (Bld) 65.4 % Normal [facility] Specialist Comment on above: Performed By: #### C BCAD, CMP, VITD, TSH reflex FT4, LIPD #### [facility] [address] [place], [place] [id number] Platelet mean volume (Bld) [Entitic vol] 10.20 fL Normal 7.50-12.50 [facility] Comment on above: Performed By: #### C BCAD, CMP, VITD, TSH reflex FT4, LIPD #### [facility] [address] [place], [place] [id number] Platelets (Bld) [#/Vol] 141 10*3/uL Normal 140-400 [facility] Specialist Comment on above: Performed By: #### C BCAD, CMP, VITD, TSH reflex FT4, LIPD #### [facility] [address] [place], [place] [id number] RBC (Bld) [#/Vol] 4.22 10*6/uL Normal 4.20-5.80 [facility] Specialist Comment on above: Performed By: #### C BCAD, CMP, VITD, TSH reflex FT4, LIPD #### [facility] [address] [place], [place] [id number] RDW-SD 45.2 fL Normal 37.0-50.0 [facility] Specialist Comment on above: Performed By: #### C BCAD, CMP, VITD, TSH reflex FT4, LIPD #### [facility] [address] [place], [place] [id number] WBC (Bld) [#/Vol] 4.6 10*3/uL Normal 3.8-11.0 [facility] [place] Senior Process Analyst Comment on above: Performed By: #### C BCAD, CMP, VITD, TSH reflex FT4, LIPD #### [facility] [address] [place], [place] [id number] Comprehensive Metabolic Pane jamaal 05-01-2021 Albumin [Mass/Vol] 4.0 g/dL Normal 3.6-5.1 Arias damon [place] Senior Process Analyst Comment on above: Performed By: #### C BCAD, CMP, VITD, TSH reflex FT4, LIPD #### [facility] [address] [place], [place] [id number] Albumin/Globulin [Mass ratio] 1.5 {ratio} Normal 1.0-2.5 [facility] Specialist Comment on above: Performed By: #### C BCAD, CMP, VITD, TSH reflex FT4, LIPD #### [facility] [address] [place], [place] [id number] ALP [Catalytic activity/Vol] 140 U/L High 40-129 [facility] Specialist Comment on above: Performed By: #### C BCAD, CMP, VITD, TSH reflex FT4, LIPD #### [facility] [address] [place], [place] [id number] ALT [Catalytic activity/Vol] 63 U/L High 9-46 [facility] Specialist Comment on above: Result Comment: 02/22 Female reference range changed. Performed By: #### C BCAD, CMP, VITD, TSH reflex FT4, LIPD #### [facility] [address] [place], [place] [id number] Anion gap [Moles/Vol] 17 mmol/L Normal 12-20 [facility] Specialist Comment on above: Result Comment: Effe ctive 03/30/2019 reference range changed. Performed By: #### C BCAD, CMP, VITD, TSH reflex FT4, LIPD #### [facility] [address] [place], [place] [id number] AST [Catalytic activity/Vol] 62 U/L High 10-40 [facility] Specialist Comment on above: Performed By: #### C BCAD, CMP, VITD, TSH reflex FT4, LIPD #### [facility] [address] [place], [place] [id number] Bilirubin [Mass/Vol] 0.41 mg/dL Normal 0.30-1.[address] [facility] Comment on above: Performed By: #### C BCAD, CMP, VITD, TSH reflex FT4, LIPD #### [facility] [address] [place], [place] [id number] BUN/CREA 13 Ratio Normal 6-22 [facility] Comment on above: Performed By: #### C BCAD, CMP, VITD, TSH reflex FT4, LIPD #### [facility] [address] [place], [place] [id number] Calcium [Mass/Vol] 9.5 mg/dL Normal 8.6-10.2 [facility] Comment on above: Performed By: #### C BCAD, CMP, VITD, TSH reflex FT4, LIPD #### [facility] [address] [place], [place] [id number] Chloride [Moles/Vol] 106 mmol/L Normal 98-[address] [facility] Comment on above: Performed By: #### C BCAD, CMP, VITD, TSH reflex FT4, LIPD #### [facility] [address] [place], [place] [id number] CO2 [Moles/Vol] 26 mmol/L Normal 20-31 [facility] Comment on above: Performed By: #### C BCAD, CMP, VITD, TSH reflex FT4, LIPD #### [facility] [address] [place], [place] [id number] Creatinine [Mass/Vol] 0.9 mg/dL Normal 0.7-1.4 [facility] Comment on above: Performed By: #### C BCAD, CMP, VITD, TSH reflex FT4, LIPD #### [facility] [address] [place], [place] [id number] eGFRAA 99 mL/min/1.73m2 Normal >60 [facility] Specialist Comment on above: Performed By: #### C BCAD, CMP, VITD, TSH reflex FT4, LIPD #### [facility] [address] [place], [place] [id number] eGFRNAA 81 mL/min/1.73m2 Normal >60 [facility] Senior Process Analyst Comment on above: Performed By: #### C BCAD, CMP, VITD, TSH reflex FT4, LIPD #### [facility] [address] [place], [place] [id number] Globulin (S) [Mass/Vol] 2.6 g/dL Normal 1.9-3.7 [facility] Senior Process Analyst Comment on above: Performed By: #### C BCAD, CMP, VITD, TSH reflex FT4, LIPD #### [facility] [address] [place], [place] [id number] Glucose [Mass/Vol] 89 mg/dL Normal 65-99 Arias damon [place] Senior Process Analyst Comment on above: Result Comment: For FASTING Glucose --- ADA reference ranges: Normal 65-99 mg/dl Prediabetes 100-125 Diabetes >/= 126 Performed By: #### C BCAD, CMP, VITD, TSH reflex FT4, LIPD #### [facility] [address] [place], [place] [id number] Potassium [Moles/Vol] 5.0 mmol/L Normal 3.5-5.5 [facility] Specialist Comment on above: Performed By: #### C BCAD, CMP, VITD, TSH reflex FT4, LIPD #### [facility] [address] [place], [place] [id number] Protein [Mass/Vol] 6.6 g/dL Normal 6.1-8.1 Arias damon [place] Senior Process Analyst Comment on above: Performed By: #### C BCAD, CMP, VITD, TSH reflex FT4, LIPD #### [facility] [address] [facility] [place] [id number] Sodium [Moles/Vol] 143 mmol/L Normal 135-146 Arias damon [place] Senior Process Analyst Comment on above: Performed By: #### C BCAD, CMP, VITD, TSH reflex FT4, LIPD #### [facility] [address] [facility] [place] [id number] Urea nitrogen [Mass/Vol] 12 mg/dL Normal 7-25 [place] [employer] Process Analyst Comment on above: Performed By: #### C BCAD, CMP, VITD, TSH reflex FT4, LIPD #### [facility] [address] [place], [place] [id number] Lipid Panelon 05-01-2021 Cholesterol [Mass/Vol] 135 mg/dL Normal 125-200 [facility] above: Result Comment: Low risk < 200mg/dL Borderline risk 201-239 mg/dl High risk > or equal to 240 Performed By: #### C BCAD, CMP, VITD, TSH reflex FT4, LIPD #### [facility] [address] [place], [place] [id number] Cholesterol in HDL [Mass/Vol] 44 mg/dL Normal >40 [facility] Specialist Comment on above: Result Comment: High Cardiovascular Risk HDL <40 mg/dL Low Cardiovascular Risk HDL > or equal to 60 mg/dl Performed By: #### C BCAD, CMP, VITD, TSH reflex FT4, LIPD #### [facility] [address] [place], [place] [id number] Cholesterol in LDL [Mass/Vol] 65 mg/dL Normal [facility] Comment on above: Result Comment: LDL ATP III CLASSIFICATION LDL less than 100 mg/dl Optimal LDL 100-129 mg/dl Near or above optimal LDL 130-159 Borderline high LDL 160-189 High LDL greater than 189 mg/dl Very High Performed By: #### C BCAD, CMP, VITD, TSH reflex FT4, LIPD #### [facility] [address] [place], [place] [id number] Cholesterol in VLDL [Mass/Vol] 26 mg/dL Normal [facility] Specialist Comment on above: Performed By: #### C BCAD, CMP, VITD, TSH reflex FT4, LIPD #### [facility] [address] [place], [place] [id number] Cholesterol.total/Chol esterol in HDL [Mass ratio] 3 {ratio} Normal [facility] Specialist Comment on above: Performed By: #### C BCAD, CMP, VITD, TSH reflex FT4, LIPD #### [facility] [address] [place], [place] [id number] Triglyceride [Mass/Vol] 130 mg/dL Normal 30-150 [facility] Senior Process Analyst Comment on above: Result Comment: TRIG ATPIII CLASSIFICATIONS TRIG less than 150 mg/dl Normal TRIG 150-199 mg/dl Borderline High TRIG 200-500 mg/dl High TRIG greather than 500 mg/dl Very High Performed By: #### C BCAD, CMP, VITD, TSH reflex FT4, LIPD #### [facility] [address] [place], [place] [id number] PSA SCREEN (MEDICARE)on TPSA 0.983 ng/mL Normal <4.000 [facility] Senior Process Analyst Comment on above: Result Comment: PSA Test Method: ECLIA/Mick e 601 Performed By: #### P #### [facility] [address] [place], [place] [id number] TSH w/ Reflex to Free T4on 0 05-01-2021 TSH 1.150 uIU/mL Normal 0.400-4.50 0 [facility] Senior Process Analyst Comment on above: Performed By: #### C BCAD, CMP, VITD, TSH reflex FT4, LIPD #### [facility] [address] [place], [place] [id number] Vitamin D 25-OHon 05-01-2021 VIT D 25 OH 32 ng/ml Normal >29 [facility] Senior Process Analyst Comment on above: Result Comment: Maria E min D Status Deficiency <20 ng/mL Insufficiency 20-29 ng/mL Optimal 30-100 ng/mL Possible Toxicity >=150 ng/mL Performed By: #### C BCAD, CMP, VITD, TSH reflex FT4, LIPD #### [facility] [address] [place], [place] [id number] Covid-19 PCR (CVDTBH)on SARS-CoV-2 (COVID-19) RNA GÓMEZ+probe Ql (Unsp spec) Not detected Normal NOT DETECTED [facility] Comment on above: Result Comment: This test is not yet approved or cleared by the [place] FDA. When there are no FDA-approved or cleared tests available, and other criteria are met, FDA can make tests available under an emergency access mechanism called an Emergency Use Authorization (EUA). The EUA for this test is supported by the Director Of Vocational Guidance of Health and Human Service's (HHS's) declaration [...] Performed By: #### F ETIBC, FERR #### [facility] [address] [place] [address] Dr. Natalya Arthur CBC AUTO DIFFon 02-03-2021 BASO # 0.0 103/ul Normal 0.0-0.1 [facility] Comment on above: Performed By: #### C BC #### [facility] [address] [place] [address] Dr. Natalya Arthur Basophils/100 WBC (Bld) 0.3 % Normal 0.2-2.0 [facility] Comment on above: Performed By: #### C BC #### [facility] [address] [place] [address] Dr. Natalya Arthur EO # 0.0 103/ul Normal 0.0-0.7 [facility] Comment on above: Performed By: #### C BC #### [facility] [address] [place] [address] Dr. Natalya Arthur Eosinophils/100 WBC (Bld) 0.1 % Critically low 0.9-7.0 [facility] Comment on above: Performed By: #### C BC #### [facility] [address] [place] [address] Dr. Natalya Arthur Erythrocyte distribution width (RBC) [Ratio] 13.2 % Normal 11.0-15.0 [facility] Comment on above: Performed By: #### C BC #### [facility] [address] [place] [address] Dr. Natalya Arthur Hematocrit (Bld) [Volume fraction] 46.5 % Normal 42.0-54.0 [facility] Comment on above: Performed By: #### C BC #### [facility] [address] [place] [address] Dr. Natalya Arthur Hemoglobin (Bld) [Mass/Vol] 15.2 g/dL Normal 14.0-18.0 [facility] Comment on above: Performed By: #### C BC #### [facility] [address] [place] [address] Dr. Natalya Arthur IG # 0.04 10e3/ul Critically high 0.00-0.03 [facility] Comment on above: Performed By: #### C BC #### [facility] [address] [place] [address] Dr. Natalya Arthur IG % 0.3 % Normal 0.0-0.5 [facility] Comment on above: Performed By: #### C BC #### [facility] [address] [place] [address] Dr. Natalya Arthur LYMPH # 1.2 103/ul Normal 1.2-3.8 [facility] Comment on above: Performed By: #### C BC #### [facility] [address] [place] [address] Dr. Natalya Arthur Lymphocytes/100 WBC (Bld) 10.3 % Critically low 20.5-60.0 [facility] Comment on above: Performed By: #### C BC #### [facility] [address] [place] [address] Dr. Natalya Arthur MANUAL DIFF REQ NO Normal [facility] Comment on above: Performed By: #### C BC #### [facility] [address] [place] [address] Dr. Natalya Arthur MCH (RBC) [Entitic mass] 31.0 pg Normal 25.9-34.0 [facility] Comment on above: Performed By: #### C BC #### [facility] [address] [place] [address] Dr. Natalya Arthur MCHC (RBC) [Mass/Vol] 32.7 g/dL Normal 29.9-35.2 [facility] Comment on above: Performed By: #### C BC #### [facility] [address] [address] [address] Natalya Arthur MCV (RBC) [Entitic vol] 94.9 fL Critically high 80.0-94.0 [facility] Comment on above: Performed By: #### C BC #### [facility] [address] [address] [address] Natalya Arthur MONO # 1.1 103/ul Critically high 0.3-0.8 [facility] Comment on above: Performed By: #### C BC #### [facility] [address] [address] [address] Natalya Arthur Monocytes/100 WBC (Bld) 9.2 % Normal 1.7-12.0 [facility] Comment on above: Performed By: #### C BC #### [facility] [address] [address] [address] Natalya Arthur NEUT # 9.6 103/ul Critically high 1.4-6.5 [facility] Comment on above: Performed By: #### C BC #### [facility] [address] [address] [address] Natalya Arthur Neutrophils/100 WBC (Bld) 79.8 % Critically high 43.0-75.0 [facility] Comment on above: Performed By: #### C BC #### [facility] [address] [address] [address] Natalya Arthur Platelet mean volume (Bld) [Entitic vol] 10.3 fL Normal 9.5-13.5 [facility] Comment on above: Performed By: #### C BC #### [facility] [address] [address] [address] Natalya Arthur PLT 126 103/ul Critically low 150-450 [facility] Comment on above: Performed By: #### C BC #### [facility] [address] [address] [address] Natalya Arthur RBC 4.90 106/ul Normal 4.70-6.10 [facility] Comment on above: Performed By: #### C BC #### [facility] [address] [place] [address] Dr. Natalya Arthur WBC 12.1 103/ul Critically high 4.0-11.0 [facility] Comment on above: Performed By: #### C BC #### [facility] [address] [place] [address] Dr. Natalya Arthur ER URINE PROFILEon 1 Bilirubin Ql (U) Negative Normal NEGATIVE [facility] Comment on above: Performed By: #### Arthur MCLEAN UMICRO #### [facility] [address] [place] [address] Dr. Natalya Arthur Clarity (U) CLEAR Normal CLEAR [facility] Comment on above: Performed By: #### Arthur MCLEAN UMICRO #### [facility] [address] [place] [address] Dr. Natalya Arthur Color (U) YELLOW Normal YELLOW [facility] Comment on above: Performed By: #### Arthur MCLEAN UMICRO #### [facility] [address] [place] [address] Dr. Natalya Arthur ERUAHD A micrscopic examina tion will be performed if indicated. Normal [facility] Comment on above: Performed By: #### Arthur MCLEAN UMICRO #### [facility] [address] [place] [address] Dr. Natalya Arthur Glucose Ql (U) Negative Normal NEGATIVE [facility] Comment on above: Performed By: #### Arthur MCLEAN UMICRO #### [facility] [address] [place] [address] Dr. Natalya Arthur Hemoglobin Ql (U) LARGE Abnormal NEGATIVE [facility] Comment on above: Performed By: #### Arthur MCLEAN UMICRO #### [facility] [address] [place] [address] Dr. Natalya Arthur Ketones Ql (U) Negative Normal NEGATIVE [facility] Comment on above: Performed By: #### Arthur MCLEAN UMICRO #### [facility] [address] [place] [address] Dr. Natalya rAthur LEUKOCYTES Negative Normal NEGATIVE [facility] Comment on above: Performed By: #### ROHAN BESSRO #### [facility] [address] [place] [address] Dr. Natalya Arthur Nitrite Ql (U) Negative Normal NEGATIVE [facility] Comment on above: Performed By: #### ROHAN BESSRO #### [facility] [address] [place] [address] Dr. Natalya Arthur pH (U) 6.0 [pH] Normal 5-9 [facility] Comment on above: Performed By: #### ROHAN BESSRO #### [facility] [address] [place] [address] Dr. Natalya Arthru Protein (U) [Mass/Vol] 100 mg/dL Abnormal NEGAT ANTONIO/ TRACE [facility] Comment on above: Performed By: #### ROHAN BESSRO #### [facility] [address] [place] [address] Dr. Natalya Arthur SPEC GRAVITY >=1.030 Abnormal 1.005-<=1. 025 [facility] Comment on above: Performed By: #### ROHAN BESSRO #### [facility] [address] [place] [address] Dr. Natalya Arthur UR MICRO IND INDICATED Normal [facility] Comment on above: Performed By: #### ROHAN BESSRO #### [facility] [address] [place] [address] Dr. Natalya Arthur Urobilinogen Qn (U) 0.2 {Vonnie'U}/dL Normal 0.2 - 1. 0 [facility] Comment on above: Performed By: #### ROHAN BESSRO #### [facility] [address] [place] [address] Dr. Natalya Arthur LACTATE/LACTIC ACIDon 2020 Lactate [Moles/Vol] 1.7 mmol/L Normal 0.7-2.0 [facility] Comment on above: Performed By: #### C VDTB #### [facility] [address] [place] [address] Dr. Natalya Arthur LIPASEon 02-03-2021 Lipase [Catalytic activity/Vol] 143.0 U/L Normal 23.0-300.0 [facility] Comment on above: Performed By: #### C VDTBH #### [facility] [address] [place] [address] Dr. Natalya Arthur PROF 14(COMP METB)on 021 Albumin [Mass/Vol] 3.6 g/dL Normal 3.5-5.0 [facility] Comment on above: Performed By: #### C VDTBH #### [facility] [address] [place] [address] Dr. Natalya Arthur Albumin/Globulin [Mass ratio] 0.8 {ratio} Normal [facility] Comment on above: Performed By: #### C VDTBH #### [facility] [address] [place] [address] Dr. Natalya Arthur ALP [Catalytic activity/Vol] 108 U/L Normal 38-126 [facility] Comment on above: Performed By: #### C VDTBH #### [facility] [address] [place] [address] Dr. Natalya Arthur ALT [Catalytic activity/Vol] 65 U/L Normal 21-72 [facility] Comment on above: Performed By: #### C VDTBH #### [facility] [address] [place] [address] Dr. Natalya Arthur Anion gap [Moles/Vol] 13.9 mmol/L Normal [facility] Comment on above: Performed By: #### C VDTBH #### [facility] [address] [place] [address] Dr. Natalya Arthur AST [Catalytic activity/Vol] 42 U/L Normal 17-59 [facility] Comment on above: Performed By: #### C VDTBH #### [facility] [address] [place] [address] Dr. Natalya Arthur Bilirubin [Mass/Vol] 1.0 mg/dL Normal 0.2-1.3 [facility] Comment on above: Performed By: #### C VDTBH #### [facility] [address] [address] [address] Natalya Arthur Calcium [Mass/Vol] 9.7 mg/dL Normal 8.4-10.2 [facility] Comment on above: Performed By: #### C VDTBH #### [facility] [address] [place] [address] [address] Natalya Arthur Chloride [Moles/Vol] 100 mmol/L Normal 98-107 [facility] Comment on above: Performed By: #### C VDTBH #### [facility] [address] [address] [address] Natalya Arthur CO2 [Moles/Vol] 28.2 mmol/L Normal 22.0-30.0 [facility] Comment on above: Performed By: #### C VDTBH #### [facility] [address] [place] [address] Dr. Natalya Arthur Creatinine [Mass/Vol] 1.18 mg/dL Normal 0.66-1.25 [facility] Comment on above: Performed By: #### C VDTBH #### [facility] [address] [address] [address] Natalya Arthur EGFR-AF GUAMANIAN >60 Normal >=60 [facility] Comment on above: Performed By: #### C VDTBH #### [facility] [address] [address] [address] Natalya Arthur EGFR-NON AF GUAMANIAN =60 Normal >=60 [facility] Comment on above: Performed By: #### C VDTBH #### [facility] [address] [address] [address] Natalya Arthur Globulin (S) [Mass/Vol] 4.5 g/dL Normal [facility] Comment on above: Performed By: #### C VDTBH #### [facility] [address] [address] [address] Natalya Arthur Glucose [Mass/Vol] 121 mg/dL Critically high 74-[address] [facility] Comment on above: Performed By: #### C VDTBH #### [facility] [address] [address] [address] Natalya Arthur Potassium [Moles/Vol] 4.1 mmol/L Normal 3.4-5.0 [facility] Comment on above: Performed By: #### C VDTBH #### [facility] [address] [address] [address] Natalya Arthur Protein [Mass/Vol] 8.1 g/dL Normal 6.1-8.2 [facility] Comment on above: Performed By: #### C VDTBH #### [facility] [address] [address] [address] Natalya Arthur Sodium [Moles/Vol] 138 mmol/L Normal 137-145 [facility] Comment on above: Performed By: #### C VDTBH #### [facility] [address] [place] [address] Dr. Natalya Arthur Urea nitrogen [Mass/Vol] 17.0 mg/dL Normal 9.0-20.0 [facility] Comment on above: Performed By: #### C VDTBH #### [facility] [address] [address] [address] Natalya Arthur Urea nitrogen/Creatinine [Mass ratio] 14.4 mg/mg Normal [facility] Comment on above: Performed By: #### C VDTBH #### [facility] [address] [place] [address] Dr. Natalya Arthur TROPONIN, HIGH SENSITIVITYon 02-03-2021 HSTROP 49.0 pg/mL Critically high 4.0-42.2 [facility] Comment on above: Result Comment: CUT- OFF POINTS HAVE BEEN ESTABLISHED BASED ON THE FOURTH UNIVERSAL DEFINITIONS OF MYOCARDIAL INFARCTION. THE UPPER REFERENCE LIMIT (URL) OF TROPONIN, DEFINED THE 99TH PERCENTILE OF cTnI DISTRIBUTION IN A REFERENCE POPULATION, HAS BEEN CONFIRMED THE DECISION THRESHOLD FOR DE DIAGNOSIS. Performed By: #### C VDTBH #### [facility] [address] [address] [address] Natalya Arthur URINE MICROSCOPIC ONLYon AMORPHOUS CRYSTALS FEW Normal [facility] Comment on above: Performed By: #### Arthur MCLEAN UMICRO #### [facility] [address] [place] [address] Dr. Natalya Arthur BACTERIA TRACE Abnormal NONE SEEN [facility] Comment on above: Performed By: #### Arthur MCLEAN UMICRO #### [facility] [address] [place] [address] Dr. Natalya Arthur Bacteria identified Cx Nom (U) NOT INDICATED Normal [facility] Comment on above: Performed By: #### Arthur MCLEAN UMICRO #### [facility] [address] [place] [address] Dr. Natalya Arthur CAST NONE SEEN Normal NONE SEEN [facility] Comment on above: Performed By: #### Arthur MCLEAN UMICRO #### [facility] [address] [place] [address] Dr. Natalya Arthur Crystals LM Nom (Urine sed) SEEN Abnormal NONE SEEN [facility] Comment on above: Performed By: #### Arthur MCLEAN UMICRO #### [facility] [address] [place] [address] Dr. Natalya Arthur Epithelial cells LM Ql (Urine sed) FEW Abnormal NONE SEEN /RARE [facility] Comment on above: Performed By: #### Arthur MCLEAN UMICRO #### [facility] [address] [place] [address] Dr. Natalya Arthur MUCOUS LARGE Abnormal NONE SEEN [facility] Comment on above: Performed By: #### Arthur MCLEAN UMICRO #### [facility] [address] [place] [address] Dr. Natalya Arthur RBC 10-20 Abnormal 0-2 [facility] Comment on above: Performed By: #### Arthur MCLEAN UMICRO #### [facility] [address] [place] [address] Dr. Natalya Arthur WBC 0-2 Abnormal NONE SEEN [facility] Comment on above: Performed By: #### Arthur MCLEAN UMICRO #### [facility] [address] [place] [address] Dr. Natalya Arthur US SINGLE QUAD RT [...] STEPHEN ARBOLEDA Date: 2021-02-03 19:08 Normal [facility] XR CHEST 1 Von 02-03-2021 XR [...] by: STEPHEN ARBOLEDA Date: 2021-02-03 19:22 Normal [facility] Cardiovascular Lab Reporton 10-31-2018 Cardiovascular Lab Report [facility] Patient Name: [facility] Pankaj MR #: [id number] Department of Physician: Artis Horner M.D. Division of Service Date: 10/30/2018 Cardiology Birthdate: 1945 Adult Cardiovascular Room #: [facility] [address] [place], [place] [address] Cardiovascular Laboratory Report CLINICAL PRESENTATION: Pankaj Payne is a 73-year-old male with past medical history significant for CAD, status post prior PCI of the left circumflex coronary artery in 02/2018; hypertension; hyperlipidemia; hypothyroidism. The patient was evaluated by Dr. Tenorio in the [facility], [place] office. He reports worsening fatigue that was [...] noted. 4. Outpatient followup with Dr. Tenorio, [facility]. PROCEDURES: Coronary angiogram, left heart catheterization, [...] infiltrated over the right radial artery. A 6-Ecuadorean Terumo Glidesheath slender was placed in the right radial artery. The radial anti-vasospasm cocktail of verapamil 2.5 mg and nitroglycerin 200 mcg was administered through the sheath. All catheter exchanges were made over the Magic Weixinhai guidewire. Initially, a 5-Ecuadorean [place] catheter was used to engage the coronary arteries. The [place] catheter engaged the right coronary artery, but did not engage the left main coronary artery well. I then exchanged over wire to a 6-Ecuadorean JL3.5 catheter which engaged the left main coronary artery. Coronary angiogram was performed in multiple orthogonal views using hand injection of contrast. At this point, it was apparent that the right PDA had intermediate stenosis, I elected to proceed with IFR evaluation. The [place] Verrata wire was zeroed outside of the body and then normalized at the catheter guide tip. Heparin anticoagulation was used for this procedure and the ACT was maintained greater than 200 seconds. The [place] Verrata wire was then manipulated to the [...] Schafer M.D. Date Trans: 10/31/2018 05:07 Rishabh/katelin [id number] cc: Frantz Conley M.D. [address] [address] Frantz Tenorio M.D. [address] [id number] Normal [facility] Operative Reporton 12-10-201 8 Operative Report Date [...] day for postoperative care.Hardeep Fraga D.O.glsDictated: 02/25/2018 #[id number]: 02/25/2018 #[id number]: Hardeep Fraga D.O. [facility] Comment on above: Result Comment: Elec tronically Signed By: Hardeep Fraga DO\.br\Date and Time Signed: 03/03/18 12:57 EST Cardiovascular Lab Reporton 03-01-2018 Cardiovascular Lab Report [facility] Patient Name: [facility] Pankaj MR #: [id number] Department of Physician: Artis Pinedo M.D. Division of Service Date: 02/28/2018 Cardiology Birthdate: 1945 Adult Cardiovascular Room #: [address]AB [address] [address] Cardiovascular Laboratory Report FINAL IMPRESSION: 1. Successful [...] fashion. Using a modified Seldinger technique, a 5-Ecuadorean micropuncture was placed in right internal jugular vein. This was upsized to a regular 6-Ecuadorean sheath. Then, a 6-Ecuadorean Trinh was used for right heart catheterization. The right heart catheterization was performed. Access of the right radial artery under ultrasound guidance and in the right ulnar artery under ultrasound guidance a 6-Ecuadorean sheath was placed and then used a 6-Ecuadorean JL3.5 and JR5 catheter for coronary angiography. After baseline angiography was performed, the case was discussed by his referring internet sales director, Dr. Tenorio, as well as with the patient's family. Also given multiple lesions in right , circumflex coronary artery and a distal LAD lesion, we also discussed CABG as an option. 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 We decided to treat circumflex. 6-Ecuadorean XB 3.0 guide was used to engage the left main coronary ostium. A 0.014 [place] wire was passed across the proximal circumflex into the 1st obtuse marginal branch. Predilatation was performed using a 2.5 x 15 balloon. Then, we deployed a 2.5 x 16 Synergy stent. This was post-dilated with a 2.75 x 15 noncompliant at 24 atmospheres. Final angiography showed good stent result in the proximal circumflex into the 1st obtuse marginal branch. The tlingit & ha[place] circumflex stayed open. There were no complications. [...] Barahona M.D. Date Trans: 03/01/2018 03:16 Rishabh/katelin [id number] cc: JYOTI Villalobos [address] [place] [address] Frantz Conley M.D. [address] [address] Frantz Tenorio M.D. [address] [address] Normal [facility] History and Physicalon 02-28 History and Physical MR#: [id number] [facility] Pt. Name: Pankaj Payne Admitted: 02/28/2018 Date [...] P/Hill Lopez M.D. Date Trans: 02/28/2018 04:44 P/reginoo [id number] Normal [facility] Coding Summary.on 02-26-2018 Coding Summary. CODING DATE: 018 FINAL [facility] STATUS: Home (Routine DC) PAYOR: Medicare APC DESCRIPTION 5491 Level 1 Intraocular Procedures ADMIT DX: REASON FOR VISIT DX: H25.11 Age-related nuclear cataract, right eye FINAL DX: PRINCIPAL: H25.11 Age-related nuclear cataract, right eye SECONDARY: H25.041 Posterior subcapsular polar age-related cataract, right eye E03.9 Hypothyroidism, unspecified PYMT PROC APC STAT DESCRIPTION DOCTOR NAME DATE 64253 5491 J1 Extracapsular cataract Hardeep Fraga DO [...] [place] Date Saved: 02/26/2018 04:03 pm Normal [facility] Main OR Intraoperative Recor don 02-26-2018 Main OR Intraoperative Record IntraOp Document Type FT Summary Primary Physician: Hardeep Fraga DO Finalized Date/Time: 02/26/18 14:08:09 Pt. Name: PANKAJ PAYNE/Sex: 1945 Male Med Rec #: [id number] Physician: Hardeep Fraga DO Financial #: [id number] Pt. Type: A Room/Bed: [address] [address] Admit/Disch: 02/25/18 08:23:00 - 02/25/18 12:00:00 Institution: [...] Hardeep Fraga DO RN, Arnold Rodas BSN, RN, Sussy Role Performed Surgeon - Primary Spout Liner Helper - Primary Spout Liner Helper - Primary Time In 02/25/18 11:00:00 02/25/18 11:00:00 02/25/18 11:00:00 Time Out 02/25/18 11:18:00 02/25/18 11:18:00 02/25/18 11:18:00 Procedure CATARACT EXTRACTION W/ CATARACT EXTRACTION W/ CATARACT EXTRACTION W/ INTRAOCULAR LENS(Right) INTRAOCULAR LENS(Right) INTRAOCULAR LENS(Right) Comments Last Modified By: Tiffanie RN, Arnold Moreno RN, Arnold Moreno RN, Arnold Morton 02/25/18 11:17:52 02/25/18 11:17:52 02/25/18 11:17:52 Entry 4 Entry 5 Case Attendee Zoila Mtz CST, CST, Jeannine López Role Performed Scrub - Primary Scrub - Other Time In 02/25/18 11:00:00 02/25/18 11:00:00 Time Out 02/25/18 11:18:00 02/25/18 11:18:00 Procedure CATARACT EXTRACTION W/ CATARACT EXTRACTION W/ INTRAOCULAR LENS(Right) INTRAOCULAR LENS(Right) Comments Last Modified By: Tiffanie DAMON, Arnold Moreno RN, Arnold Morton 02/25/18 11:17:52 02/25/18 11:17:52 Perioperative Protocols FT [...] Moreno RN, Weisenburger BSN, RN, Smith Hi SORTER PACKER, Nessa Bhardwaj SORTER PACKER, Jeannine López Time Out Complete 02/25/18 11:02:00 [...] tissue Entry 1 Skin Integrity Warm, Dry, [place], Unable Outcomes Met? Yes to Visualize Last [...] Instruments Status Correct Correct Time By Ruffing SORTER PACKER, Zoila E Ruffing SORTER PACKER, Zoila E Outcomes Met? Yes Yes Last [...] RN Patient Status Stable Skin. Condition Warm, [place], Dry Airway Maintenance Oxygen in Use? No [...] Identification Description ROSENDA [id number] 12.50MM Serial Number [id number] 13.50 [[id number]][F] Lot Number [id number] Retail Gift Card Merchandising FT-[employer]USCH [employer] LOM[employer] Catalog ?# [id number][F] Expiration Date 05/23/19 Usage Data Implant Site right eye Quantity 1 Outcomes Met? Yes Last Modified By: Arnold Moreno RN 02/25/18 11:08:01 Post-Care Text: The patient is free from signs and symptoms of injury caused by extraneous objects Case Comments Finalized By: Elayne Agosto CST Document Signatures Signed By: Arnold Moreno RN 02/25/18 11:18 Elayne Agosto CST 02/26/18 14:08 Normal [facility] History and Physicalon 02-25 History and Physical [...] in the near future.Hardeep Fraga D.O.aekDictated: 02/24/2018 #[id number] 02/25/2018 #[id number]: Hardeep Fraga D.O. [facility] Comment on above: Result Comment: Elec tronically Signed By: Hardeep Fraga DO\.br\Date and Time Signed: 02/25/18 10:24 EST Inpatient Patient Summaryon 02-25-2018 [facility] Instructions[facility] INFORMATION Name: PANKAJ PAYNE PHYSICIANS Admitting Physician: Hardeep Fraga DOAttending Physician: Hardeep Fraga DO PCP: FRANTZ CONLEY MD BDischarge Diagnosis: Cataract Comment: PATIENT EDUCATION INFORMATIONInstructions:M edication Leaflets:Follow up:With: Address: When: Hardeep Fraga [facility] [address] [place] [address] Business (1) Within 1 to 2 days MEDICATION LISTComment: [facility] Main OR PACU II Recordon Main OR PACU II Record PACU Phase II Doc ument Type FT Summary Primary Physician: Hardeep Fraga DO Finalized Date/Time: 02/25/18 12:33:41 Pt. Name: PANKAJ PAYNE D.O.B./Sex: 1945 Male Med Rec #: [id number] Physician: Hardeep Fraga DO Financial #: [id number] Pt. Type: A Room/Bed: [facility]09/22 Admit/Disch: 02/25/18 08:23:55 - Institution: Case Times [...] By: Lissa Pope RN 02/25/18 12:33 Normal [facility] Main OR Preoperative Recordo n 02-25-2018 Main OR Preoperative Record PreOp Document Type FT Summary Primary Physician: Hardeep Fraga DO Finalized Date/Time: 02/25/18 11:05:22 Pt. Name: PANKAJ PAYNE/Sex: 1945 Male Med Rec #: [id number] Physician: Hardeep Fraga DO Financial #: [id number] Pt. Type: A Room/Bed: [address] [address] Admit/Disch: 02/25/18 08:23:55 - Institution: Case Times [...] Signed By: Arnold Moreno RN 02/25/18 11:05 [facility] Main OR Preoperative Record Holding Area Document Type FT Summary Primary Physician: Hardeep Fraga DO Finalized Date/Time: 02/25/18 08:46:23 Pt. Name: PANKAJ PAYNE/Sex: 1945 Male Med Rec #: [id number] Physician: Hardeep Fraga DO Financial #: [id number] Pt. Type: A Room/Bed: [address] [address] Admit/Disch: 02/25/18 08:23:55 - Institution: Case Times [...] By: Lissa Pope RN 02/25/18 08:46 Normal [facility] Patient Education - Texton 1 04-28-2017 Patient Education - Text [facility] Progress Note-Physicianon Protein mass conc [...] Blood Loss: 0 ml. Complications: None. Normal [facility] Comment on above: Result Comment: Elec tronically Signed By: Hardeep Fraga DO\.br\Date and Time Signed: 02/25/18 11:17 EST Operative Reporton 11-26-201 8 Operative Report Date of Surgery: 02/11/2018SURGEON: [...] day for postoperative care.Hardeep Fraga D.O.lkrDictated: 02/11/2018 #[id number]: 02/12/2018 #[id number]: Hardeep Fraga D.O. [facility] Comment on above: Result Comment: Elec tronically Signed By: Hardeep Fraga DO\.br\Date and Time Signed: 02/17/18 08:38 EST Coding Summary.on 02-12-2018 Coding Summary. CODING DATE: 018 FINAL [facility] STATUS: Home (Routine DC) PAYOR: Medicare APC DESCRIPTION 5491 Level 1 Intraocular Procedures ADMIT DX: REASON FOR VISIT DX: H25.13 Age-related nuclear cataract, bilateral FINAL DX: PRINCIPAL: H25.13 Age-related nuclear cataract, bilateral SECONDARY: H25.043 Posterior subcapsular polar age-related cataract, bilateral E03.9 Hypothyroidism, unspecified PYMT PROC APC STAT DESCRIPTION DOCTOR NAME DATE 36317 5491 J1 Extracapsular cataract Yuridiajudith JEAN Hardeep 02/11/2018 removal with insertion of intraocular lens [...] Abbasi Revised Date Saved: 02/12/2018 11:05 am [facility] Main OR Preoperative Recordo n 02-12-2018 Main OR Preoperative Record Holding Area Document Type FT Summary Primary Physician: Hardeep Fraga DO Finalized Date/Time: 02/12/18 07:26:59 Pt. Name: PANKAJ PAYNE/Sex: 1945 Male Med Rec #: [id number] Physician: Hardeep Fraga DO Financial #: [id number] Pt. Type: A Room/Bed: [address] [address] Admit/Disch: 02/11/18 08:31:00 - 02/11/18 12:00:00 Institution: Case Times Holding FT Pre-Care Text: Verifies consent for planned procedure, identifies individual values and wishes concerning care, includes family members in perioperative teaching Secures patient's records' belongings, and valuables, maintains patient's dignity and privacy, and maintains patient confidentiality Entry 1 In Holding 02/11/18 08:40:00 Outcomes Met? Yes Last Modified By: Be RN, BSN, Monika López 02/11/18 08:48:24 Post-Care Text: The patient participates [...] comments below for reason Last Modified By: Be DAMON, BSN, Monika López 02/11/18 08:50:03 Finalized By: HEMANT Macdonald RN, Andrea Document Signatures Signed By: HEMANT Macdonald RN, Andrea 02/12/18 07:26 Normal [facility] History and Physicalon 02-11 History and Physical [...] in the near future.Hardeep Fraga D.O.aekDictated: 02/10/2018 #[id number] 02/11/2018 #[id number]: Hardeep Fraga D.O. [facility] Comment on above: Result Comment: Elec tronically Signed By: Hardeep Fraga DO\.br\Date and Time Signed: 02/11/18 08:10 EST Inpatient Patient Summaryon 02-11-2018 Inpatient [facility] Dis[facility] InstructionsPERSON INFORMATION Name: PANKAJ PAYNE PHYSICIANS Admitting Physician: Hardeep Fraga DOAttending Physician: Hardeep Fraga DO PCP: FRANTZ CONLEY MD BDischarge Diagnosis: Cataract Comment: PATIENT EDUCATION INFORMATIONInstructions:Z AHLER- After Surgery Eye (Custom)Medication Leaflets:Follow up:With: Address: When: Hardeep Fraga [facility] [place] Med [place] [address] [facility], [facility] [address] [place] [address] Business (1) Within 1 to 2 days MEDICATION LISTComment: [facility] Main OR Intraoperative Recor don 02-11-2018 Main OR Intraoperative Record IntraOp Document Type FT Summary Primary Physician: Flakito DO Hardeep Finalized Date/Time: 02/11/18 13:09:49 Pt. Name: PANKAJ PAYNE Rishabh Landaverde/Sex: 1945 Male Med Rec #: [id number] Physician: Flakito JEAN Hardeep Financial #: [id number] Pt. Type: A Room/Bed: [address] [address] Admit/Disch: 02/11/18 08:31:00 - 02/11/18 12:00:00 Institution: [...] 3 Case Attendee Hardeep Fraga DO RN, Rosanna Moreno RN, Arnold Morton Role Performed Surgeon - Primary Spout Liner Helper - Primary Spout Liner Helper - Primary Time In 02/11/18 11:04:00 02/11/18 11:04:00 02/11/18 11:04:00 Time Out 02/11/18 11:24:00 02/11/18 11:24:00 02/11/18 11:24:00 Procedure CATARACT EXTRACTION W/ CATARACT EXTRACTION W/ CATARACT EXTRACTION W/ INTRAOCULAR LENS(Left) INTRAOCULAR LENS(Left) INTRAOCULAR LENS(Left) Comments Last Modified By: Siddharth RN, Rosanna Messina RN, Rosanna Messina RN, Rosanna Morton 02/11/18 11:24:31 02/11/18 11:24:31 02/11/18 11:24:31 Entry 4 Entry 5 Case Attendee Mayo ARZOLA, Marisela Marcano SORTER PACKER/Nusrat ZAMORA Role Performed Scrub - Primary Scrub [...] Rosanna Messina RN, Tiffanie DAMON, Krys Mar SORTER PACKER/SA, Mayo Silverio CST, Marisela Rodriguez Time Out Complete 02/11/18 11:08:00 [...] safely administered during the perioperative period For [facility] please see scanned medication reconcilliation form for medications used at the field during the procedure. Implant Log FT Pre-Care Text: Records devices implanted during the operative or invasive procedure Entry 1 Implant/Explant Implant Implant Identification Description ROSENDA [id number] 12.50MM Lot Number [id number] 17.50 [[id number]][F] Retail Gift Card Merchandising [employer] Catalog ?# [id number] [F] Size 17.5 Expiration Date 09/21/18 Usage Data Implant Site LEFT EYE Quantity 1 Outcomes Met? Yes Last Modified By: Rosanna Messina RN 02/11/18 11:19:54 Post-Care Text: The patient is free from signs and symptoms of injury caused by extraneous objects Case Comments Finalized By: Elayne Agosto CST Document Signatures Signed By: Rosanna Messina RN 02/11/18 11:24 Elayne Agosto CST 02/11/18 13:09 Normal [facility] Main OR PACU II Recordon Main OR PACU II Record PACU Phase II Doc ument Type FT Summary Primary Physician: Hardeep Fraga DO Finalized Date/Time: 02/11/18 12:09:46 Pt. Name: PANKAJ PAYNE/Sex: 1945 Male Med Rec #: [id number] Physician: Hardeep Fraga DO Financial #: [id number] Pt. Type: A Room[facility]: [facility] Admit/Disch: 02/11/18 08:31:00 - Institution: Case Times [...] By: Lisa Rubi RN 02/11/18 12:09 Normal [facility] Patient Education - Texton 1 04-13-2017 Patient Education - Text [facility] Progress Note-Physicianon Protein mass conc [...] Blood Loss: 0 ml. Complications: None. Normal [facility] Comment on above: Result Comment: Elec tronically Signed By: Hardeep Fraga DO\.br\Date and Time Signed: 02/11/18 11:23 EST Vital Signs Date Time Vital Sign Value Performing Clinician Facility 03-12-2024 10:59-0500 Body height 166.4 cm Frantz Conley MD Work Phone: [facility] 03-12-2024 10:59-0500 Body mass index (BMI) [Ratio] 29.17 kg/m2 Frantz Conley MD Work Phone: [facility] 03-12-2024 10:59-0500 Body weight 80.74 kg Frantz Conley MD Work Phone: [facility] 03-12-2024 10:59-0500 Diastolic blood pressure 66 mm[Hg] Frantz Conley MD Work Phone: [facility] 03-12-2024 10:59-0500 Heart rate 56 /min Frantz Conley MD Work Phone: [facility] 03-12-2024 10:59-0500 SaO2% (BldA) [Mass fraction] 98 % Frantz Conley MD Work Phone: [facility] 03-12-2024 10:59-0500 Systolic blood pressure 122 mm[Hg] Frantz Conley MD Work Phone: [facility] 01-01-2024 11:24-0400 Heart rate 52 /min Crescencio Marin DO Work Phone: [facility] 01-01-2024 11:16-0400 Body height 165.1 cm Crescencio Marin DO Work Phone: [facility] 01-01-2024 11:16-0400 Body mass index (BMI) [Ratio] 29.09 kg/m2 Crescencio Marin DO Work Phone: [facility] 01-01-2024 11:16-0400 Body weight 79.29 kg Crescencio Marin DO Work Phone: [facility] 01-01-2024 11:16-0400 Diastolic blood pressure 60 mm[Hg] Crescencio Marin DO Work Phone: [facility] 01-01-2024 11:16-0400 Systolic blood pressure 118 mm[Hg] Crescencio Marin DO Work Phone: [facility] 10-23-2023 11:17-0400 Diastolic blood pressure 84 mm[Hg] II Frantz Conley Work Phone: [facility] 10-23-2023 11:17-0400 Heart rate 70 /min II Frantzmagi Conley Work Phone: [facility] 10-23-2023 11:17-0400 Respiratory rate 18 /min II Frantz Conley Work Phone: [facility] 10-23-2023 11:17-0400 SaO2% (BldA) [Mass fraction] 98 % II Frantz Conley Work Phone: [facility] 10-23-2023 11:17-0400 Systolic blood pressure 146 mm[Hg] II Frantz Conley Work Phone: [facility] 10-23-2023 09:10-0400 Body height 157.48 cm II Frantzmagi Conley Work Phone: [facility] 10-23-2023 09:10-0400 Body weight 78.01 kg II Frantz Conley Work Phone: [facility] 09-17-2023 11:02-0400 Body height 165.1 cm II Frantzmagi Conley Work Phone: [facility] 09-17-2023 11:02-0400 Body mass index (BMI) [Ratio] 28.8 kg/m2 II Frantz Conley Work Phone: [facility] 09-17-2023 11:02-0400 Body weight 78.47 kg II Frantz Conley Work Phone: [facility] 09-17-2023 11:02-0400 Diastolic blood pressure 67 mm[Hg] II Frantz Conley Work Phone: [facility] 09-17-2023 11:02-0400 Heart rate 53 /min II Frantz Conley Work Phone: [facility] 09-17-2023 11:02-0400 Systolic blood pressure 114 mm[Hg] II Frantz Conley Work Phone: [facility] 06-20-2023 10:01-0400 Diastolic blood pressure 68 mm[Hg] Crescencio Marin DO Work Phone: [facility] 06-20-2023 10:01-0400 Heart rate 63 /min Cresecncio Marin DO Work Phone: [facility] 06-20-2023 10:01-0400 Systolic blood pressure 126 mm[Hg] Crescencio Marin DO Work Phone: [facility] 06-20-2023 10:00-0400 Body height 165.1 cm Crescencio Marin DO Work Phone: [facility] 06-20-2023 10:00-0400 Body mass index (BMI) [Ratio] 30.29 kg/m2 Crescencio Marin DO Work Phone: [facility] 06-20-2023 10:00-0400 Body weight 82.56 kg Crescencio Marin DO Work Phone: [facility] 05-08-2023 10:30-0500 Body height 166.4 cm Frantz Conley MD Work Phone: [facility] 05-08-2023 10:30-0500 Body mass index (BMI) [Ratio] 29.66 kg/m2 Frantz Conley MD Work Phone: [facility] 05-08-2023 10:30-0500 Body weight 82.1 kg Frnatz Conley MD Work Phone: [facility] 05-08-2023 10:30-0500 Diastolic blood pressure 66 mm[Hg] Frantz Conley MD Work Phone: [facility] 05-08-2023 10:30-0500 Heart rate 52 /min Frantz Conley MD Work Phone: [facility] 05-08-2023 10:30-0500 SaO2% (BldA) [Mass fraction] 99 % Frantz Conley MD Work Phone: [facility] 05-08-2023 10:30-0500 Systolic blood pressure 120 mm[Hg] Frantz Conley MD Work Phone: [facility] 09-28-2022 10:27-0400 Body temperature 97.8 [degF] II Frantz Conley Work Phone: [facility] 09-28-2022 10:27-0400 Body weight 81.19 kg II Frantz Conley Work Phone: [facility] 09-28-2022 10:27-0400 Diastolic blood pressure 61 mm[Hg] II Frantz Conley Work Phone: [facility] 09-28-2022 10:27-0400 Heart rate 39 /min II Frantz Conley Work Phone: [facility] 09-28-2022 10:27-0400 Respiratory rate 16 /min II Frantz Conley Work Phone: [facility] 09-28-2022 10:27-0400 SaO2% (BldA) [Mass fraction] 97 % II Frantz Conley Work Phone: [facility] 09-28-2022 10:27-0400 Systolic blood pressure 143 mm[Hg] II Frantz Conley Work Phone: [facility] 09-18-2022 10:00-0400 Body height 165.1 cm Mick Branch Other [facility] [employer] Other 09-18-2022 10:00-0400 Body mass index (BMI) [Ratio] 29.12 kg/m2 Mick Branch Other [facility] [employer] Other 09-18-2022 10:00-0400 Body weight 79.38 kg Mick Branch Other [facility] [employer] Other 09-18-2022 10:00-0400 Diastolic blood pressure 76 mm[Hg] Mick Branch Other [facility] [employer] Other 09-18-2022 10:00-0400 Systolic blood pressure 113 mm[Hg] Mick Branch Other [facility] [employer] Other 08-08-2022 13:49-0400 Body height 165.1 cm II Frantz Conley Work Phone: [facility] 09-19-2021 13:10-0400 Diastolic blood pressure 64 mm[Hg] II Frantz Conley Work Phone: [facility] 09-19-2021 13:10-0400 Heart rate 68 /min II Frantz Conley Work Phone: [facility] 09-19-2021 13:10-0400 Respiratory rate 16 /min II Frantz Conley Work Phone: [facility] 09-19-2021 13:10-0400 SaO2% (BldA) [Mass fraction] 96 % II Frantz Conley Work Phone: [facility] 09-19-2021 13:10-0400 Systolic blood pressure 119 mm[Hg] II Frantz Conley Work Phone: [facility] 09-19-2021 11:54-0400 Body height 165.1 cm II Frantz Conley Work Phone: [facility] 09-19-2021 11:54-0400 Body mass index (BMI) [Ratio] 29.9 kg/m2 II Frantz Conley Work Phone: [facility] 09-19-2021 11:54-0400 Body temperature 98.3 [degF] II Frantz Conley Work Phone: [facility] 09-19-2021 11:54-0400 Body weight 81.64 kg II Frantz Conley Work Phone: [facility] 09-13-2021 15:15-0400 Body height 165.1 cm Mick Branch Other [employer] Other 09-13-2021 15:15-0400 Body mass index (BMI) [Ratio] 29.95 kg/m2 Mick Branch Other Grow Other 09-13-2021 15:15-0400 Body weight 81.65 kg Mick Branch Other [facility] Other 08-17-2021 12:00-0400 Body temperature 98.01 [degF] Leonard Johnson MD [facility] 08-17-2021 11:15-0400 Heart rate 69 /min Leonard Johnson MD [facility] 08-17-2021 11:15-0400 Respiratory rate 19 /min Leonard Johnson MD [facility] 08-17-2021 11:15-0400 SaO2% (BldA) [Mass fraction] 98 % Leonard Johnson MD [facility] 08-17-2021 10:00-0400 Diastolic blood pressure 80 mm[Hg] Leonard Johnson MD [facility] 08-17-2021 10:00-0400 Systolic blood pressure 139 mm[Hg] Leonard Johnson MD [facility] 08-16-2021 21:48-0400 Body height 165.1 cm Leonard Johnson MD [facility] 08-16-2021 21:48-0400 Body mass index (BMI) [Ratio] 30.05 kg/m2 Leonard MAHARAJ [employer] [facility] 08-16-2021 21:48-0400 Body weight 81.92 kg [facility] 07-11-2021 11:45-0400 Body height 165.1 cm Mick Ibanezaram Other [facility] Other 07-11-2021 11:45-0400 Body mass index (BMI) [Ratio] 30.45 kg/m2 Mick Branch Other [facility] Other 07-11-2021 11:45-0400 Body weight 83.01 kg Mick Thaismignonaram Other [facility] Other 07-11-2021 11:45-0400 Diastolic blood pressure 77 mm[Hg] Mick Branch Other [facility] Other 07-11-2021 11:45-0400 Systolic blood pressure 126 mm[Hg] Mick Thaisadam Other [facility] Other Encounters Encounter Date Encounter Type Care Provider Facility Start: 03-12-2024 End: 03-12-2024 [employer] Frantz Conley MD Work Phone: [facility] Start: 03-12-2024 End: 03-12-2024 [employer] flowsheet Frantz Conley MD Work Phone: [facility] Start: 03-12-2024 End: 03-12-2024 Office outpatient visit 25 minutes Frantz Conley MD Work Phone: [facility] Comment on above: Benign essential HTN (CMS/HCC) (Primary Dx); Flu vaccine need; 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 (CMS/HCC); Mixed hyperlipidemia (CMS/HCC); Acquired hypothyroidism (CMS/HCC); Prostate cancer screening Start: 03-12-2024 End: 03-12-2024 ambulatory FRANTZ CONLEY Not Available Start: 01-01-2024 End: 01-01-2024 ambulatory [facility] Ambulatory Start: 01-01-2024 End: 01-01-2024 Office outpatient visit 25 minutes Crescencio Marin DO Work Phone: [facility] Comment on above: ASHD (arteriosclerot ic heart disease); PVC (premature ventricular contraction); History of coronary artery stent placement; Former cigarette smoker; BMI 29.0-29.9,adult; Bradycardia Start: 12-05-2023 End: 12-05-2023 Clinisync Result Encounter Generic External Data Provider [facility] Unsolicited Start: 12-05-2023 End: 12-05-2023 Clinisync Result Encounter Generic External Data Provider [facility] External [facility] Unsolicited Start: 10-23-2023 Non-patient / Non-visit II Montrell Conley Work Phone: [facility] Gastroenterology Work Phone: Start: 10-23-2023 End: 10-23-2023 Admission to same day surgery center II Frantz Conley Work Phone: [facility]Dig[facility] Work Phone: Start: 10-23-2023 End: 10-23-2023 ambulatory II Frantz Conley Work Phone: [facility] Work Phone: Start: 10-21-2023 End: 10-21-2023 ambulatory ROSANNA DALY Not Available Start: 10-01-2023 End: 10-01-2023 Patient encounter procedure II Frantz Conley Work Phone: [facility]Ul[facility] [place] Work Phone: Start: 10-01-2023 End: 10-01-2023 ambulatory II Frantz Conley Work Phone: [facility] Work Phone: Start: 09-17-2023 End: 09-17-2023 ambulatory II Frantz Conley Work Phone: [facility] Work Phone: Start: 09-17-2023 End: 09-17-2023 Patient encounter procedure II Frantz Conley Work Phone: [facility]Lab [facility] [place] Work Phone: Start: 09-11-2023 End: 09-11-2023 ambulatory FRANTZ CONLEY Not Available Start: 06-26-2023 End: 06-26-2023 ambulatory [facility] Ambulatory Start: 06-20-2023 End: 06-20-2023 Office outpatient visit 40 minutes [facility] Work Phone: [facility] Comment on above: ASHD (arteriosclerot ic heart disease); History of coronary artery stent placement; Ascending aorta dilation (CMS/HCC); Iron deficiency anemia, unspecified iron deficiency anemia type; PVC (premature ventricular contraction); Former cigarette smoker Start: 06-20-2023 End: 06-20-2023 ambulatory [facility] Ambulatory Start: 06-10-2023 End: 06-10-2023 ambulatory FRANTZ CONLEY Not Available Start: 06-05-2023 End: 06-05-2023 ambulatory II Frantz Jarvis Work Phone: [facility] Work Phone: Start: 06-05-2023 End: 06-05-2023 Patient encounter procedure II Frantz Conley Work Phone: [facility] [place] Work Phone: Start: 05-08-2023 Bamboo flowsheet Frantz [...] (CMS/HCC) Start: 05-08-2023 End: 05-08-2023 ambulatory FRANTZ Geoffrey JARVIS Not Available Start: 05-01-2023 End: 05-01-2023 Departed Referred MD Jose Manning Work Phone: [facility] Start: 05-01-2023 End: 05-01-2023 ambulatory Jose Manning [facility] Work Phone: Start: 04-22-2023 End: 04-22-2023 ambulatory FRANTZ CONLEY Not Available Start: 10-04-2022 End: 10-04-2022 ambulatory II Frantz Conley Work Phone: [facility] Work Phone: Start: 10-04-2022 End: 10-04-2022 Patient encounter procedure II Frantz Conley Work Phone: [facility] [place] Work Phone: Start: 09-28-2022 End: 09-28-2022 ambulatory II Frantz Conley Work Phone: [facility] Work Phone: Start: 09-28-2022 End: 09-28-2022 Registered Recurring II Frantz Conley Work Phone: [facility]Cancer Center Work Phone: Start: 09-18-2022 End: 09-18-2022 ambulatory Mick Branch Other [facility] Other Start: 09-18-2022 Patient encounter procedure Mick Branch [facility] Gastroenterology Start: 09-17-2022 End: 09-17-2022 ambulatory ARABELLA MURPHY [facility] Start: 11-08-2021 End: 11-09-[address] KARL MENON Facility: Start: 11-06-2021 End: 11-06-2021 Patient encounter procedure II Frantz Conley Work Phone: [facility]-Res[facility] Therapy Start: 10-10-2021 End: 10-10-2021 Patient encounter procedure II Frantz Conley Work Phone: [facility]-CT Scan [facility] [place] Start: 09-20-2021 End: 09-20-2021 Patient encounter procedure II Frantz Conley Work Phone: [facility] [place] Start: 09-19-2021 End: 09-19-2021 Admission to same day surgery center II Frantz Conley Work Phone: [facility]Dig[facility] Start: 09-15-2021 End: 09-15-2021 Patient encounter procedure II Frantz Conley Work Phone: [facility]-Pre-Surgical Testing Start: 09-13-2021 End: 09-13-2021 ambulatory Mick Barnch Other [employer] Other Start: 09-13-2021 Patient encounter procedure Mick Branch [facility] Gastroenterology Start: 08-16-2021 End: 08-17-2021 Evaluation and management of inpatient SHANTANU MARIE [facility] Start: 08-16-2021 End: 08-17-2021 Evaluation and management of inpatient Leonard Johnson MD [facility] CAR 1 Comment on above: Subarachnoid hemorrh age following injury, no loss of consciousness, initial encounter (HCC) (Primary Dx); Facial laceration, initial encounter Start: 08-16-2021 End: 08-16-2021 ambulatory KEILY RENTERIA Facility:[facility] Start: 07-12-2021 End: 07-13-2021 ambulatory MICK BRANCH Facility:[facility] Start: 07-11-2021 End: 07-11-2021 ambulatory Mick Branch Other [facility] Other Start: 07-11-2021 FQHC visit new patient Mick Branch [facility] Start: 03-01-2021 End: 03-01-[address] FRANTZ CONLEY Facility:[facility] Start: 02-03-2021 End: 02-03-[address] FRANTZ CONLEY Facility:[facility] Start: 10-30-2018 End: 10-31-2018 Patient encounter procedure JOSIAH SCHAFER Facility:[facility] Start: 02-28-2018 End: 03-01-2018 Patient encounter procedure INDIA ANDREA Facility:[facility] Start: 02-25-2018 End: 02-25-2018 Patient encounter procedure Hardeep Fraga Facility:[facility] [place] Start: 02-11-2018 End: 02-11-2018 Patient encounter procedure Hardeep Fraga Facility:[facility] [place] Procedures Date Procedure Procedure Detail Performing Clinician Start: 01-01-2024 Ecg routine ecg w/least 12 lds w/i&r Crescencio Marin DO Work Phone: Start: 12-05-2023 ALL CBC WITH AUTO DIFF Generic External Data Provider Start: 10-23-2023 Esophagogastroduodenoscopy II Frantz roman Work Phone: Start: 10-01-2023 Ultrasonography of liver II Frantz Conley Work Phone: Start: 06-26-2023 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 Start: 06-20-2023 History of placement [...] 1996 panel - Serum or Plasma Mando Marin DO Work Phone: Start: 10-04-2022 Ultrasonography [...] Work Phone: Start: 09-19-2021 Esophagogastroduodenoscopy II Frantz Van ry Work Phone: Start: 08-17-2021 BASIC METABOLIC PANEL W/ REFLEX TO MG FOR LOW K Bella Gaytannn DO Work Phone: Start: 08-17-2021 Blood count complete auto&auto difrntl wbc Bella Gaytannn DO Work Phone: Start: 08-16-2021 Iadna s aureus methicillin resist amp probe tq Pepito Suarez MD Work Phone: Start: 08-16-2021 Ct head/brain w/o contrast material Paramjit alin T Aniyahck DO Work Phone: History of placement of stent for coronary artery disease History of coronary artery stent placement Crescencio Marin DO Work Phone: Plan of Treatment Date Care Activity Detail Author Start: 04-29-2028 Lipid panel Lipid Panel [facility] Start: 10-20-2024 Medicare Annual Well ness (AWV) Medicare Annual Wellness (AWV) [facility] Start: 10-20-2024 End: 10-20-2024 Patient encounter procedure 10/20/2024 11:00 AM EDT Office Visit [facility] [address] [facility] [address] [place] [phone] Rosanna Daly PA [address] [facility] [address] [place] [address] [facility] Start: 10-05-2024 End: 10-05-2024 Patient encounter procedure 10/05/2024 11:00 AM EDT Office Visit [facility] [address] [facility] [address] [place] [phone] Frantz Conley MD [address] [place] [address] [place] [address] [facility] Start: 09-08-2024 End: 09-08-2024 Patient encounter procedure 09/08/2024 3:00 PM EDT Office Visit [address] [place] [phone] Crescencio Marin, DO [address] [facility] [address] [place] [address] [facility] Start: 03-12-2024 End: 03-12-2025 Lipid 1996 panel - Serum or Plasma Lipid panel Lab Routine Mixed hyperlipidemia (CMS/HCC) Expected: 03/12/2024 (Approximate), Expires: 03/12/2025 [facility] Comment on above: Expected: 03/12/2024 (Approximate), Expires: 03/12/2025 Start: 03-12-2024 End: 03-12-2025 TSH W/REFLEX TO FT4 TSH W/REFLEX TO FT4 Lab Routine Acquired hypothyroidism (CMS/HCC) Expected: 03/12/2024 (Approximate), Expires: 03/12/2025 [facility] Comment on above: Expected: 03/12/2024 (Approximate), Expires: 03/12/2025 Start: 03-12-2024 End: 03-12-2024 Patient encounter procedure [facility] Comment on above: Arrived Start: 12-25-2023 End: 12-25-2023 Patient encounter procedure 12/25/2023 10:20 AM EDT Office Visit [address] [place] [phone] Crescencio Marin, DO [address] [facility] [address] [place], [place] [phone] [facility] Start: 11-24-2023 COVID-19 Vaccine ( season) COVID-19 Vaccine ( season) [facility] Start: 11-24-2023 Influenza vaccination Influenza Vacc ine (#1) [facility] Start: 11-06-2023 End: 11-06-2023 Patient encounter procedure 11/06/2023 11:00 AM EDT Office Visit [facility] [address] [facility] [address] [place] [address] Frantz Conley MD [address] [facility] [address] [place] [address] [facility] Start: 10-23-2023 [facility] Start: 10-21-2023 End: 10-21-2023 Patient encounter procedure 10/21/2023 11:00 AM EDT Office Visit [facility] [address] [facility] [address] [place] [address] Frantz Conley MD [address] [facility] [address] [place] [address] [facility] Start: 09-17-2023 Ohujz-2-axvnhjkyrdq. tumor marker [Mass/volume] in Serum or Plasma [facility] Start: 08-23-2023 Medicare Annual Well ness (AWV) Medicare Annual Wellness (AWV) [facility] Start: 06-26-2023 End: 06-26-2023 Professional / ancillary services management 06/26/2023 10:00 AM EDT Ancillary Procedure [facility] [address] [facility] [address] [place] [address] [facility] Start: 06-20-2023 End: 06-19-2024 Holter monitor study Holter Or Event [facility] Routine PVC (premature ventricular contraction) Expected: 06/20/2023 (Approximate), Expires: 06/19/2024 [facility] Service Area Work Phone: Comment on above: Expected: 06/20/2023 (Approximate), Expires: 06/19/2024 Start: 06-10-2023 End: 06-10-2023 Patient encounter procedure 06/10/2023 10:30 AM EDT Office Visit [facility] [address] [facility] [address] [place] [address] Frantz Conley MD [address] [facility] [address] [place] [address] [facility] Start: 05-08-2023 End: 05-08-2024 US Abdomen limited [facility] Work Phone: Comment on above: Expected: 05/08/2023 , Expires: 05/08/2024 Start: 05-08-2023 End: 05-08-2023 Patient encounter procedure 05/08/2023 10:30 AM EST Office Visit [facility] [address] [place] [address] Frantz Conley MD [address] [place] [address] Arrived [facility] Comment on above: Arrived Start: 11-23-2022 COVID-19 Vaccine ( season) COVID-19 Vaccine () [facility] Start: 11-08-2022 Echocardiography Echocardiogram [facility] Start: 05-01-2022 Lipid panel Lipids [facility] [employer] [facility] Start: 09-19-2021 [facility] Work Phone: Start: 08-24-2021 End: 08-17-2022 CT HEAD WO CONTRAST CT HEAD WO CONTRAST Imaging Routine Subarachnoid hemorrhage following injury, no loss of consciousness, initial encounter (HCC) Expected: 08/24/2021, Expires: 08/17/2022 [facility] [employer] [facility] Work Phone: Comment on above: Expected: 08/24/2021 , Expires: 08/17/2022 Start: 09-30-2019 Pneumococcal 65+ yea rs Vaccine (2 - PCV) Pneumococcal 65+ years Vaccine (2 - PCV) [facility] [employer] [facility] Start: 09-30-2019 Pneumococcal Vaccine : 65+ Years (2 - PCV) Pneumococcal Vaccine: 65+ Years (2 - PCV) [facility] Start: 09-30-2019 Pneumococcal Vaccine : 65+ Years (2 of 2 - PCV) Pneumococcal Vaccine: 65+ Years (2 of 2 - PCV) [facility] Start: 2006 Hepatitis B Vaccines (1 of 3 - Risk 3-dose series) Hepatitis B Vaccines (1 of 3 - Risk 3-dose series) [facility] Start: 2006 RSV patient s and/or patients aged 60+ years (1 - 1-dose 60+ series) RSV patients and/or patients aged 60+ years (1 - 1-dose 60+ series) [facility] Start: 07-31-1991 Screening for malign ant neoplasm of colon [facility] Start: 1968 DTaP/Tdap/Td Vaccine s (1 - Tdap) DTaP/Tdap/Td Vaccines (1 - Tdap) [facility] Start: 1965 DTaP/Tdap/Td vaccine (1 - Tdap) DTaP/Tdap/Td vaccine (1 - Tdap) [facility] Start: 1965 Hepatitis A Vaccines (1 of 2 - Risk 2-dose series) Hepatitis A Vaccines (1 of 2 - Risk 2-dose series) [facility] Start: 1964 Diabetes mellitus screening Diabetes Screening [facility] Start: 1964 Hepatitis C screening B ON [facility] Start: 1958 Depression Screen Depression Screen [facility] Start: 1946 Creatinine measurement Creatinine Le tara [facility] Start: 1946 Medicare Annual Well ness Visit Medicare Annual Wellness Visit (AWV) [facility] Start: 1946 Potassium measurement Potassium Leve l [facility] Start: 1946 Thyroid stimulating hormone measurement TSH Level [facility] Oxygen therapy [[facility] Data Set] Initiate Oxygen Therapy Protocol Respiratory Care Routine As Needed until discontinued starting 08/16/2021 [facility] Work Phone: Comment on above: As Needed until disc ontinued starting 08/16/2021 Patient Education Hemorrhoids Co jamaal polyps Esophageal varices Diverticulosis Know your [facility] Work Phone: Prostate specific Ag [Mass/volume] in Serum or Plasma PSA Lab Routine Prostate cancer screening Ordered: 03/12/2024 [facility] Work Phone: Comment on above: Ordered: 03/12/2024 End: 08-16-2021 Speech and language therapy regime Speech language pathology evaluation [employer] Routine One Time for 1 Occurrences starting 08/16/2021 until 08/16/2021 [facility] Work Phone: Comment on above: One Time for 1 Occur rences starting 08/16/2021 until 08/16/2021 [facility] Immunizations Immunization Date Immunization Notes Care Provider [facility] 03-12-2024 Influenza, High-dose Seasonal, Quadrivalent, Preservative Free Frantz Conley MD Work Phone: [facility] 01-04-2023 Influenza, Seasonal, Quadrivalent, Adjuvanted Frantz Conley MD Work Phone: [facility] 01-04-2023 influenza virus vacc ine, unspecified formulation Generic Provider [facility] 03-21-2022 Influenza, High-dose Seasonal, Quadrivalent, Preservative Free Frantz Conley MD Work Phone: [facility] Work Phone: 03-01-2021 COVID-19 Ad26.COV2.S (Caleb) II Frantz Conley Work Phone: [facility] 01-06-2021 influenza, high dose seasonal, preservative-free Frantz Conley MD Work Phone: [facility] 01-06-2021 Influenza, High-dose Seasonal, Quadrivalent, Preservative Free Frantz Conley MD Work Phone: [facility] 05-26-2020 COVID-19 mRNA-1273 (Moderna) II Frantz Conley Work Phone: [facility] 04-28-2020 COVID-19 mRNA-1273 (Moderna) II Frantz Conley Work Phone: [facility] 01-06-2020 Influenza, High-dose Seasonal, Quadrivalent, Preservative Free Frantz Conley MD Work Phone: [facility] 08-18-2019 zoster vaccine recombinant Frantz Conley MD Work Phone: [facility] 04-10-2019 zoster vaccine recombinant Frantz Conley MD Work Phone: [facility] 02-06-2019 influenza, high dose seasonal, preservative-free Frantz Conley MD Work Phone: [facility] 09-29-2018 pneumococcal polysaccharide vaccine, 23 valent Frantz Conley MD Work Phone: [facility] 01-14-2018 Influenza, High-dose Seasonal, Quadrivalent, Preservative Free Frantz Conley MD Work Phone: [facility] 12-03-2016 Influenza, High-dose Seasonal, Quadrivalent, Preservative Free Frantz Conley MD Work Phone: [facility] 03-28-2015 influenza, seasonal, injectable, preservative free Frantz Conley MD Work Phone: [facility] 01-10-2015 seasonal influenza, intradermal, preservative free Frantz Conley MD Work Phone: [facility] Payers Date Payer Category Payer [employer] ( and others) [id number] 2023 Self-pay [id number] 2022 [employer] ( and others) [id number] 2022 ([facility]) [id number] 2015 [employer] ( and others) [id number] 2011 Medicare [id number] 1959 [employer] ( and others) [id number] 1959 Medicare [id number] 1946 Unknown [id number] 2.16.840.1.871812.3.579.2 .727 1946 Unknown [id number] 2.16.840.1.364847.3.579.2 .727 1946 Unknown [id number] 2.16.840.1.367134.3.579.2 .647 1946 Unknown [id number] 2.16.840.1.512547.3.579.2 .647 1946 Unknown [id number] 2.16.840.1.110992.3.579.2 .175 1946 Unknown [id number] 2.16.840.1.871438.3.579.2 .593 1946 Unknown [id number] 2.16.840.1.424093.3.579.2 .593 1946 Unknown [id number] 2.16.840.1.035921.3.579.2 .593 1946 Unknown [id number] 2.16.840.1.173576.3.579.2 .593 1946 Unknown [id number] 2.16.840.1.327167.3.579.2 .593 1946 Unknown [id number] 2.16.840.1.329644.3.579.2 .1244 1946 Unknown [id number] 2.16.840.1.069511.3.579.2 .1244 1946 Unknown [id number] 2.16.840.1.752456.3.579.2 .1244 1946 Unknown [id number] 2.16.840.1.716186.3.579.2 .1259 1946 Unknown [id number] 2.16.840.1.277976.3.579.2 .1259 1946 Unknown [id number] 2.16.840.1.154915.3.579.2 .1259 1946 Unknown [id number] 2.16.840.1.272885.3.579.2 .1259 1946 Unknown [id number] 2.16.840.1.622643.3.579.2 .1259 1946 Unknown [id number] 2.16.840.1.218987.3.579.2 .1259 Unknown [id number] 2.16.840.1.002266.3.579.2 .531 Unknown [id number] 2.16.840.1.237340.3.579.2 .531 Unknown [id number] 2.16.840.1.910801.3.579.2 .531 Unknown [id number] 2.16.840.1.217772.3.579.2 .531 Unknown [id number] 2.16.840.1.299596.3.579.2 .531 Social History Date Type Detail Facility Start: 08-16-2021 Tobacco smoking status [facility] Tobacco smoking consumption unknown [employer] Start: 08-16-2021 End: 01-01-2024 Alcohol intake Lifetime non-drinker (finding) [facility] Phone: Start: 08-16-2021 History SDOH Alcohol Frequency 1 [facility] Phone: Start: 1945 Sex Assigned At Not on file [facility] Phone: Start: 08-06-2021 End: 01-01-2024 Exposure to SARS-CoV-2 (event) Not sure [facility] Work Phone: Start: 04-15-2023 End: 10-21-2023 Sex Assigned At [facility] Start: 05-10-2021 End: 08-16-2022 Tobacco smoking status WAIS Never smoked tobacco (finding) [facility] Start: 1945 Sex Assigned At Male [facility] Start: 08-16-2022 End: 01-01-2024 Tobacco use and exposure Smokeless tobacco non-user [facility] Start: 04-22-2023 End: 03-12-2024 Alcohol intake Ex-drinker (finding) [facility] Start: 04-15-2023 End: 10-21-2023 History of Social function [facility] Within the last year , have you been afraid of your partner or ex-partner? No [facility] How often do you get together with friends or relatives? Patient refused [facility] Do you belong to any clubs or organizations such as restorationism groups, unions, [employer]en Planner or athletic groups, or school groups? Yes [...] cups per day. [facility] Start: 06-20-2023 End: 01-01-2024 Tobacco smoking status NHIS Ex-smoker [facility] Work Phone: End: 03-25-2003 History of tobacco use Current smoker [facility] Work Phone: End: 03-25-2003 History of tobacco use Cigarette Smoker [facility] Work Phone: Start: 06-29-2023 Gender identity Identifies as male gender (finding) [facility] Work Phone: Start: 06-29-2023 Sexual orientation Heterosexual (finding) [facility] Work Phone: Goals Date Patient Goal Desired Activity /State Clinical Notes 05-23-2021 to 03-12-2024 Frantz Conley MD - 03/12/2024 11:00 AM Jane Marin, DO - 01/01/2024 10:50 AM EDTPatient InstructionsCrescencio Marin, DO - 06/20/2023 10:00 AM EDTPatient Instructions Note Date & Type Note Facility 03-12-2024 History of Present illness Narrative Images from the original note were not included. Subjective Patient ID: Pankaj Payne is a 78 y.o. male who presents for Hypertension. Coronary Artery Disease Patient presents for routine coronary artery disease follow-up. Current symptoms: none. Cardiac risk factors include advanced age (older than 55 for men, 65 for women), hypertension, and male gender. Pt sees Dr marin for cardiology Hypertension Patient is here for follow-up of elevated blood pressure. Cardiac symptoms: none. Patient denies chest pain, claudication, exertional chest pressure/discomfort, irregular heart beat, lower extremity edema, near-syncope, orthopnea, and palpitations. Cardiovascular risk factors: advanced age (older than 55 for men, 65 for women), hypertension, and male gender. Hypertension The problem has been rapidly improving since onset. Coronary Artery Disease Current Outpatient Medications on File Prior to Visit Medication Sig Dispense Refill atorvastatin (Lipitor) 20 MG tablet Take 20 mg by mouth at bedtime. carvedilol (Coreg) 3.125 MG tablet Take 3.125 mg by mouth in the morning and 3.125 mg in the evening. Take with meals. clopidogrel (Plavix) 75 MG tablet Take 75 mg by mouth in the morning. levothyroxine (Synthroid, Levoxyl) 88 MCG tablet take 1 tablet by mouth every morning ON AN EMPTY STOMACH 100 tablet 3 Multiple Vitamins-Minerals (ONE DAILY ADULTS 50+ PO) Take 1 tablet by mouth 1 (one) time each day. Dewitt-3 Fatty Acids (Fish Oil) 1000 MG capsule delayed-release Take 1 capsule by mouth 1 (one) time each day. omeprazole (PriLOSEC) [address] capsule TAKE 1 CAPSULE IN THE MORNING AND 1 CAPSULE IN THE EVENING. TAKE BEFORE MEALS. 180 capsule 3 tiZANidine (Zanaflex) 4 MG tablet TAKE 1 TABLET DAILY AT NIGHT TIME NEEDED 90 tablet 3 No current facility-administered medications on file prior to visit. I have reviewed and reconciled the history and medication list with the patient today. No Known Allergies Social History Tobacco Use Smoking status: Never Smokeless tobacco: Never Vaping Use Vaping status: Never Used Substance Use Topics Alcohol use: Not Currently Comment: caffeine intake: 1-2 cups per day. Drug use: Never Family History Problem Relation Name Age of Onset Kidney disease Mother Past Medical History: Diagnosis Date Acute cholecystitis 08/13/2022 Anemia CAD (coronary artery disease) (CMS/HCC) Calculus of gallbladder with acute on chronic cholecystitis without obstruction 08/13/2022 Calculus of gallbladder with cholecystitis 10/21/2023 Cataract Cataracts, bilateral Cholelithiasis 02/03/2021 Cholelithiasis without obstruction 08/13/2022 Chronic kidney disease History of being hospitalized 04/30/2023 Anemia, Thrombocytopenia, Weakness Hyperlipidemia (CMS/HCC) Hypertension (CMS/HCC) Intracranial subarachnoid hemorrhage (CMS/HCC) 08/13/2022 Iron deficiency anemia Liver disease Cirrhotic appearance on laparoscopy PAC (premature atrial contraction) PVC (premature ventricular contraction) Subarachnoid hemorrhage (CMS/HCC) 08/16/2021 Past Surgical History: Procedure Laterality Date CARDIAC CATHETERIZATION 10/30/2018 with stent placement CHOLECYSTECTOMY 05/10/2021 PCL CIRCUMCISION 1953 COLONOSCOPY COLONOSCOPY W/ POLYPECTOMY 10/23/2023 ESOPHAGOGASTRODUODENOSCOPY 10/23/2023 Visit Vitals BP 122/66 Pulse 56 Ht 5' 5.5 Wt 178 lb SpO2 98% BMI 29.17 kg/m Smoking Status Never BSA 1.93 m Review of Systems Objective Physical Exam Constitutional: General: He is [...] Diagnoses and all orders for this visit: Benign essential HTN (CMS/HCC) - This is a chronic medical condition that is stable since last assessment. No changes in treatment are suggested at this time. Flu vaccine need - Influenza, high-dose seasonal, quadrivalent, PF (ARN224) (Fluzone High Dose [place] 0.7mL dose) 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 (CMS/HCC) - The patient is experiencing no symptoms from this condition currently, it is considered medically controlled and no change in current therapies are planned. Mixed hyperlipidemia (CMS/HCC) - Lipid panel; Future Acquired hypothyroidism (CMS/HCC) - TSH W/REFLEX TO FT4; Future Prostate cancer screening - PSA Follow up in about 6 months (around 09/10/2024) for Wellness. documented in this encounter [facility] 01-01-2024 History of Present illness Narrative Subjective Pankaj Payne is a 78 y.o. male Chief Complaint Follow-up 78-year-old gentleman follows up and is overall doing well. Recent Holter monitoring revealed frequent PVCs and PACs, evidence of few couplets and triplets and 11 beat run of atrial tachycardia. Longest pause was 2.5 seconds Today's ECG reveals sinus bradycardia with PVC, marked sinus arrhythmia, possible prior anterolateral myocardial infarction. Patient has known history of ASHD with PCI of the ostial/proximal circumflex at [facility] he says around 3 years ago and IFR assessment of the PLV branch which was negative. He has a history of iron deficiency anemia and recent blood counts are reviewed and unremarkable without evidence of significant anemia. He denies hospitalizations, angina or nitrate usage, heart failure, syncope or palpitations. Recommendations: Continue current therapies follow-up in 8 months Review of Systems All other systems reviewed and are negative. Vitals: 01/01/24 1116 01/01/24 1124 BP: 118/60 BP Location: Left arm Patient Position: Sitting Pulse: (!) 42 52 Weight: 79.3 kg (174 lb 12.8 oz) Height: 1.651 m (5' 5 ) EKG done in office today Objective Physical Exam Constitutional: Appearance: Normal appearance. [...] Content: Thought content normal. Judgment: Judgment normal. Allergies Patient has no known allergies. Current Medications Current Outpatient Medications: atorvastatin (Lipitor) 20 mg tablet, Take 1 tablet (20 mg) by mouth once daily., Disp: , Rfl: carvedilol (Coreg) 3.125 mg tablet, Take 1 tablet (3.125 mg) by mouth 2 times a day., Disp: , Rfl: clopidogrel (Plavix) 75 mg tablet, Take 1 tablet (75 mg) by mouth once daily., Disp: , Rfl: fish oil concentrate (Dewitt-3) 120-180 mg capsule, Take 1 capsule (1,000 mg) by mouth once daily., Disp: , Rfl: levothyroxine (Synthroid, Levoxyl) 88 mcg tablet, Take 1 tablet (88 mcg) by mouth once daily in the morning. Take before meals. Take on an empty stomach., Disp: , Rfl: multivitamin with minerals tablet, Take 1 tablet by mouth once daily., Disp: , Rfl: omeprazole (PriLOSEC) [address] capsule, Take 1 capsule (40 mg) by mouth 2 times a day., Disp: , Rfl: tiZANidine (Zanaflex) 4 mg tablet, 1 tablet (4 mg) as needed at bedtime., Disp: , Rfl: Assessment/Plan 1. ASHD (arteriosclerotic heart disease) Follow Up In Cardiology 2. PVC (premature ventricular contraction) 3. History of coronary artery stent placement 4. Former cigarette smoker 5. BMI 29.0-29.9,adult 6. Bradycardia Scribe Attestation By signing my name below, Shawna Olivera RN , Scribe attest that this documentation has been [...] discussion and plan. documented in this encounter [facility] Work Phone: 01-01-2024 Instructions Shawna Flores RN - 01/01/2024 10:50 AM EDT Please bring all medicines, vitamins, and herbal supplements with you when you come to the office. Prescriptions will not be filled unless you are compliant with your follow up appointments or have a follow up appointment scheduled as per instruction of your physician. Refills should be requested at the time of your visit. BMI was above normal measurement. Current weight: 79.3 kg (174 lb 12.8 oz) Weight change since last visit (-) denotes wt loss -7.2 lbs Weight loss needed to achieve BMI 25: 24.9 Lbs Weight loss needed to achieve BMI 30: -5.1 Lbs Provided instructions on dietary changes Provided instructions on exercise. documented in this encounter [facility] Work Phone: 10-23-2023 Procedure note [facility] 06-20-2023 History of Present illness Narrative [...] with PCI of the ostial/proximal circumflex at [facility] he says around 3 years ago and [...] bedtime., Disp: , Rfl: fish oil concentrate (Dewitt-3) 120-180 mg capsule, Take 1 capsule (1,000 [...] Scribe Attestation By signing my name below, IBernadette LPN, Scribe attest that this documentation has [...] discussion and plan. documented in this encounter [facility] Work Phone: 06-20-2023 Instructions Bernadette [...] instructions on exercise. documented in this encounter [facility] Work Phone: 05-08-2023 History of Present illness Narrative Subjective Patient ID: Pankaj Payne is a 77 y.o. male who presents for Follow-up ([facility] stay: admitted 04/30/23 dx: anemia discharged home 05/01/23 follow up with hematology was 05/07/23) and Anemia. Flowsheet Row Telephone from 05/03/2023 in [facility] with Frantz Conley MD Discharge Information ED or Hospital Discharge? Hospital Patient has been contacted within two business days of discharge Yes Discharge Date 05/01/23 Discharge Hospital [facility] Discharged To: Home Setting Engagement Call Start [...] by mouth 1 (one) time each day. Dewitt-3 Fatty Acids (Fish Oil) 1000 MG capsule [...] was discussed with Dr Sevilla, Hematology at [facility], he is following the patient and did see him in the hospital. Iron deficiency anemia, unspecified iron deficiency anemia type - Ambulatory referral to Gastroenterology; Future Other cirrhosis of liver (CMS/HCC) - US LIVER; Future Fatty liver disease, nonalcoholic - US LIVER; Future Hyperchylomicronemia (CMS/HCC) Follow up in about 4 weeks (around 06/05/2023) for Test/Lab Review. documented in this encounter [facility] 01-17-2023 Note Reviewed recent echo and compared with previous echo and Aortic diameter 12/07/22 TTE 11/08/21 TTE 2019: Ao Diam (sinus): 3.80 cm (1.4 cm - 2.6 cm) Ao Ascendin.60 cm (< 3.5 M, <3.2 F) Ao Arch: 3.30 cm Arabella Murphy SPRING FITTER HELPER Division of Cardiology, [facility]- [phone] Pager- [phone] Email- [email or web address] 09-18-2022 Evaluation note Encounter Date Diagnosis Assessment Notes Aug, Cirrhosis (ICD-10 - K74.60) Dr. Conley (PCP) will order lab work Repeat fibroscan in 2024 Rto 1 yr Aug, NAFLD (nonalcoholic fatty liver disease) (ICD-10 - K76.0) Aug, PLASCENCIA (nonalcoholic steatohepatit is) (ICD-10 - K75.81) [facility] Other 06-26-2023 NoteHypertension is well controlled Continue lifestyle modifications- low sodium diet, heart healthy diet and regular activity.[facility]06-26-2023 NoteHTN is well controlled F/U with PCP for monitoring of renal functionUnAvita Health System 09-17-2022 NoteCoronary artery disease is stable, no concerning symptoms Continue GDMT- ASA, plavix, lipitor continue risk factor modifications- heart healthy diet, regular exercise as tolerated and continue all medications.[facility] 09-17-2022 NoteMild dilatation on last echo- will repeat echo at 1 year- Oct- NovUnAvita Health System06-26-2023 NoteContinue statin [facility]06-26-2023 NoteStable and pt without any symptomsUnAvita Health System06-26-2023 NoteUTP CARDIOLOGY PROGRESS NOTE HPI: Pankaj Payne [...] DAILY 90 tablet 3 fish oil concentrate (Dewitt-3) 120-180 mg capsule Take 1,000 mg by [...] were noted. 4. Outpatient followup with Dr. TenorioATASCOSA, [facility]. No echocardiogram results found for the past 12 months Assessment/Plan: PVC's (premature ventricular contractions) Stable and pt without any symptoms Mixed hyperlipidemia Continue statin Dilatation of aorta (CMS/HCC) Mild dilatation on last echo- will repeat echo at 1 year- Oct-Nov 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 Coronary artery disease [...] healthy diet and regular activity. RTC 1 yearTr[facility] Health System05-17-2023 Consult note Author Zoila Castorena [facility] August 08, 2022 3:09pm Note Date/Time August 08, 2022 2:08p [facility] [place] [address] Hem/Onc Consult Note - OP Signed Patient: Pankaj Payne MR#: [id number] : 1945 Acct:[id number] Age/Sex: 77 / M Type: REG RCR [...] smoking cigars while he was in the [place] but was not a regular cigarette smoker. [...] PO QAM 04/26/21 [History Confirmed 08/08/22] omega 8-yho-dxt-fish oil 1,000 mg (120 mg-180 mg) capsule [...] for coordination of care (as documented) and [id number] counseling of patient and/or family. Dictated By: Zoila Castorena MD DD/ 1407 Signed By: <Electronically signed by MD Zoila Castorena> 08/08/22 [address] [facility] Work Phone: 1(112) 702-732906-22-2022 Evaluation note* Encounter Date Diagnosis Assessment Notes Treatment Notes Treatment Clinical Notes Aug, Fatty liver (ICD-10 - K76.0) ENCOURAGED WATCHING DIET, EXERCISE AND WEIGHT LOSS. WILL NEED TO MONITOR IMAGING EVERY 6 MONTHS. PROCEED WITH EGD Aug, Other cirrhosis of liver (ICD-10 - K74.69) Aug, NAFLD (nonalcoholic fatty liver disease) (ICD-10 - K76.0) Aug, PLASCENCIA (nonalcoholic steatohepatitis) (ICD-10 - K75.81) [facility] Other 05-26-2022 Hospital Discharge instructions* Instructions* Pato Grissom APRN - SPRING [employer] HELPER - 08/17/2021 Images from the original note [...] called to the trauma nurse line at [phone] and please leave a message. Trauma is [...] Injury Discharge Instructions Thank you for choosing [facility] for your recovery needs. The following instructions will help to ensure your comfort and that you are wellprepared for your recovery. Follow-up Visit: The office is located at: [facility] [address], [address], [place] [address] [x] Please have a CT scan of your head done prior to this appointment. Please also call your primary care physician to schedule an appointment for further evaluation and care. You can obtain CT head closer to home and have them electronically send the imaging to [facility] so we can see the scan You can follow up with Neurosurgery closer to home of you can do virtual visit with Porsche the outpatient SPRING FITTER HELPER Ok to restart your ASPIRIN today 08/17 [...] medications. YOU SHOULD CALL THE OFFICE AT [phone] IF YOU HAVE ANY OF THE FOLLOWING: [...] the emergency department. 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 AM-PAC Score [facility] Inpatient Mobility Raw Score : 24 (08/17/21 134) AM-PAC Inpatient T-Scale Score : 61.14 (08/17/21 134) Mobility Inpatient CMS 0-100% Score: 0 (08/17/21 134) Mobility Inpatient [facility] G-Code Modifier : CH (08/17/211347) Goals Short [...] Minutes: 8 Minutes Javi Rincon PT * Jazmni Connor OT - 08/17/2021 1:06 PM EDT Occupational Therapy Facility/Department: [facility] CAR 1 Occupational Therapy Initial Assessment Name: Pankaj Payne : 1945 Date of Service: 08/17/2021 Chief Complaint Patient presents with Head Injury Discharge Recommendations: No therapy recommended at discharge. Patient Diagnosis(es): The primary encounter diagnosis was Subarachnoid hemorrhage following injury, no loss of consciousness, initial encounter ([facility]). 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 Score [facility] Inpatient Daily Activity Raw Score: 24 (08/17/21 130) [facility] Inpatient ADL T-Scale Score : 57.54 (08/17/21 130) ADL Inpatient [facility] 0-100% Score: 0 (08/17/211306) ADL Inpatient [facility] G-Code Modifier : CH (08/17/211306) Goals Therapy [...] Date: 08/16/2021 Hospital day 1 Other vehicle: [employer] Past Medical History: Diagnosis Date Hyperlipidemia Hypertension [...] HISTORY: ORDERING SYSTEM PROVIDED HISTORY[facility] TECHNOLOG[facility] PROVIDED HISTORY: SAH and [...] SYSTEM PROVIDED HISTORY: Impact with object riding unbundler TECHNOLOGIST PROVIDED HISTORY: Impact with object riding unbundler Decision Support Exception - unselect if not [...] most recent progress note documented in this encounterPH[facility] Phone: 1(828) 778-108804-19-2022 Evaluation note* Encounter Date Diagnosis Assessment Notes Treatment Notes Treatment Clinical Notes Jun, Cirrhosis (ICD-10 - K74.60) [facility] Other 03-01-2022 History general Narrative - Reported* Type Description Date Surgical History cholecystectomy 05/2021 Surgical History heart stent Surgical History cataracts, bilaterally [facility] Other 03-01-2022 History general Narrative - Reported* Type Description Date Surgical History cholecystectomy 05/2021 Surgical History heart stent Surgical History cataracts, bilaterally Hospitalization History see surgical hx [facility] Other Evaluation note* Diagnosis SAH (subarachnoid hemorrhage) (HCC)- Primary Subarachnoid hemorrhage Subarachnoid hemorrhage following injury, no loss of consciousness, initial encounter (HCC) Facial laceration, initial encounter Subdural hematoma (HCC) Subdural hemorrhage documented in this encounter [facility] Phone: evaluation noteNo assessment information available [facility] [employer] Work Phone: Evaluation note* Diagnosis Onset Date Resolution Status 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 Pancytopenia, acquired chron ic [facility] Work Phone: Evaluation note* Diagnosis Pancytopenia, acquired (CMS/HCC)- Primary Pancytopenia Iron deficiency anemia, unspecified iron deficiency anemia type Other cirrhosis of liver (CMS/HCC) Fatty liver disease, 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 in this encounter [facility]* Diagnosis ASHD (arteriosclerotic heart disease) Coronary atherosclerosis of unspecified type of vessel, tlingit & haida or graft History of coronary artery stent placement Ascending aorta dilation (CMS/HCC) Thoracic aneurysm without mention of rupture Iron deficiency anemia, unspecified iron deficiency anemia type PVC (premature ventricular contraction) Other premature beats Former cigarette smoker Personal history of tobacco use, presenting hazards to health documented in this encounter [facility] Work Phone: Evaluation note* Diagnosis Onset Date Resolution Status Cirrhosis, nonalcoholic acut e Non-alcoholic fatty liver disease acute Nonalcoholic steatohepatitis (PLASCENCIA) acute [facility] Work Phone: Evaluation note* Diagnosis ASHD (arteriosclerotic heart disease) Coronary atherosclerosis of unspecified type of vessel, tlingit & haida or graft PVC (premature ventricular contraction) Other premature beats History of coronary artery stent placement Former cigarette smoker Personal history of tobacco use, presenting hazards to health BMI 29.0-29.9,adult Bradycardia Other specified cardiac dysrhythmias documented in this encounter [facility] Work Phone: Evaluation note* Diagnosis Benign essential HTN (CMS/HCC)- Primary Flu vaccine need 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 (CMS/HCC) Mixed hyperlipidemia (CMS/HCC) Mixed hyperlipidemia Acquired hypothyroidism (CMS/HCC) Unspecified hypothyroidism Prostate cancer screening Special screening for malignant neoplasm of prostate documented in this encounter [facility] HealthcareHistory and physical note Author Mick Branch [facility] October 23, 2023 10:14am Note Date/Time October 23, 2023 10:1 4am [facility] [address] [place] [address] Gastroenterology H&P Signed Patient: Pankaj Payne MR#: [id number] : 1945 Acct:[id number] Age/Sex: 78 / M Adm Date: 4 Loc: Room: Type: [facility] Attending Dr: Mick Branch MD Copies to: MD Farntz Dobbins II, MD~ Date of Service: 10/23/2023 [...] signed by Mick Branch MD> 10/23/23 1014 [facility] Work Phone: Hospital Discharge instructions Additional Instructions [...] cancer screening. -Continue to follow with your brass cleaner Dr. Sevilla. -Notify the doctor if you have any problems. -Follow up with PCP. - Office number [phone].[facility] Work Phone: Reason for referral (narrative)* Consultation (Routine) - Authorized Specialty Diagnoses / Procedures Referred By Olayinka villegas Referred To Contact Gastroenterology Diagnoses Iron deficiency anemia, unspecified iron deficiency anemia type Procedures [place] OFFICE/OUTPATIENT [facility] 60 MINUTES Frantz Conley MD [address] [facility] [address] [place] [address] Mick Branch MD [address] [place] [id number] Referral ID Status Reason Start Date Expiration Date Visits Requested Visits Authorized [id number] Authorized Specialty Services Required 05/08/2023 11/04/2023 1 1 Ã[facility] ESP[facility]A [facility] for visit NarrativePT HERE AT REQUEST OF DR DAY FOR EVALUATION AND TREATMENT OF CIRRHOSIS, REFERRAL NOTE RECEIVEDNost. [facility] NurseBuddy Other Summary Purpose Family History No Family [...] 9:52am Hospital Course Note MR#: [id number] [facility] Pt. Name: Pankaj Payne Admitted: 02/28/2018 [...] injury, no loss of consciousness, initial encounter ([facility]) Procedures CT HEAD WO CONTRAST Pato Grissom, FIELD ARTILLERY TARGETING TECHNICIAN - SPRING FITTER HELPER [address] [place] [address] Referral ID Status Reason Start Date Expiration Date Visits Re quested Visits Authorized [id number] Open 08/24/2021 08/24/2022 1 1 Specialty Diagnoses / Procedures Referred By Contac t Referred To Contact Cardiology Diagnoses PVC (premature ventricular contraction) Procedures Holter Or Event Deputy County Counsel Crescencio Marin, DO [address] [place] [address] Referral ID Status Reason Start Date Expiration Date V isits Requested Visits Authorized [id number] Pending Review 06/20/2023 06/19/2024 1 1 Specialty Diagnoses / Procedures Referred By Contac t Referred To Contact Diagnoses PVC (premature ventricular contraction) Procedures ECG 12 Lead Crescencio Marin, DO [address] [place] [address] Referral ID Status Reason Start Date Expiration Date V isits Requested Visits Authorized [id number] Authorized 06/20/2023 06/19/2024 1 1 Specialty Diagnoses / Procedures Referred By Contac t Referred To Contact Cardiology Diagnoses ASHD (arteriosclerotic heart disease) Procedures Follow Up In Cardiology Crescencio Marin, DO [address] [place] [address] Crescencio Marin, DO [address] [facility] [address], [address] [place] [id number] Referral ID Status Reason Start Date Expiration Date V isits Requested Visits Authorized [id number] Authorized 06/20/2023 06/19/2024 1 1 Specialty Diagnoses / Procedures Referred By Contac t Referred To Contact Diagnoses PVC (premature ventricular contraction) Bradycardia Procedures ECG 12 Lead Crescencio Marin, DO [address] [place] [phone] Referral ID Status Reason Start Date Expiration Date V isits Requested Visits Authorized [id number] Authorized 01/01/2024 12/31/2024 1 1 Referral ID Status Reason Start Date Expiration Date V isits Requested Visits Authorized [id number] Authorized 01/01/2024 12/31/2024 1 1 Chief Complaint and Reason for [...] section and content) DATE CREATED AUTHOR 03/05/2018 [facility] DATE CREATED AUTHOR AUTHOR'S ORGANIZ ATION 11/12/2018 [facility] DATE CREATED AUTHOR AUTHOR'S ORGANIZ ATION 06/08/[address] [facility] dical Specialist DATE CREATED AUTHOR AUTHOR'S ORGANIZ ATION 08/20/2021 [facility] DATE CREATED AUTHOR AUTHOR'S ORGANIZ ATION 11/15/2021 [facility] pital DATE CREATED AUTHOR AUTHOR'S ORGANIZ ATION 04/06/2023 [facility] DATE CREATED AUTHOR AUTHOR'S ORGANIZ ATION 11/03/2023 [facility] DATE CREATED AUTHOR AUTHOR'S ORGANIZ ATION 01/03/2024 [facility] DATE CREATED AUTHOR AUTHOR'S ORGANIZ ATION 03/15/[address] [facility] dical Specialists EPIC Reason for Visit (unrecogniz ed section and [...] Lead Crescencio Marin, DO [address] [place] [address] Referral ID Status Reason Start Date Expiration Date V isits Requested Visits Authorized [id number] Authorized 06/20/2023 06/19/2024 1 1 Reason Comments Follow-up 6 month Specialty Diagnoses / Procedures Referred By Olayinka villegas Referred To Contact Cardiology Diagnoses ASHD (arteriosclerotic heart disease) Procedures Follow Up In Cardiology Crescencio Marin, DO [address] [place] [address] Crescencio Marin, DO [address] [place] [address] Referral ID Status Reason Start Date Expiration Date V isits Requested Visits Authorized [id number] Authorized 06/20/2023 06/19/2024 1 1 Reason Comments Hypertension Ordered Prescriptions (unrec ognized section and content) [...] Polanco RN - Reason: IV Fluid Infusing) 0838 (Given - Provider: Sybil Avalos, MARISOL)2099 (Due) therapeutic multivitamin-minerals 1 tablet 1 tablet, Oral, DAILY, First dose on Sat08/16/21 at 2030, Until Discontinued 2119 (Given - Provider: Josephine Romero RN) 08 (Given - Provider: Sybil Avalos, MARISOL) tiZANidine (ZANAFLEX) tablet 4 mg 4 mg, Oral, NIGHTLY, First dose on Sat08/16/21 at 2099, Until Discontinued 2014 (Held by provider - Provider: Rishi Arteaga DO - Reason: Other)2015 (Unheld by provider - Provider: Rishi Arteaga DO)2119 (Given - Provider: Josephine Romero RN) 2099 (Due - Provider: Rishi Arteaga DO) Continuous Medication Order 08/15/2021 08/16/2021 08/17/2021 0.9 % sodium chloride infusion (CANCELED) IntraVENous, at 75 mL/hr, CONTINUOUS, Starting on Sat08/16/21 at 2029 2122 (New Bag - Provider: Josephine Romero RN)212 (Rate/Dose Verify - Provider: Remedios Polanco RN) 0020 (Rate/Dose Verify - Provider: Remedios Polanco RN)0457 (Rate/Dose Verify - Provider: Remedios Polanco RN)0707 (Rate/Dose Verify - Provider: Remedios Polanco RN)1009 (Stopped - Provider: Sybil Avalos, MARISOL) PRN Medication Order 08/15/2021 08/16/2021 08/17/2021 0.9 [...] June 05, 2023 End: June 05, 2023 Radiology Teacher Relationship Specialty Start Date End Date Frantz Conley MD [address] [place] [address] PCP - General Internal Medicine 08/16/21 Team [...] Active Zoila Castorena MD Attending Provider Active Radiology Teacher Relationship Specialty Start Date End Date Frantz Conley MD [address] [place] [address] PCP - General Internal Medicine 08/08/22 Frantz Conley MD [address] [place] [address] PCP - ACO Reach 08/16/22 Radiology Teacher Relationship Specialty Start Date End Date Frantz Conley MD [address] [place] [address] PCP - General Internal Medicine 08/08/22 Frantz Conley MD [address] [place] [address] PCP - ACO Reach 08/16/22 Radiology Teacher Relationship Specialty Start Date End Date Frantz Conley MD [address] [place] [address] PCP - General Internal Medicine 06/20/23 Team [...] 2023 Team Status: Active Member Role Status Dates Frantz Conley II MD Primary Care Provider Active Start: October 23, 2023 Mick Branch MD Attending Provider, Other Provide r Active Start: October 23, 2023 Radiology Teacher Relationship Specialty Start Date End Date Frantz Conley MD [address] [facility] [address] [place] [address] PCP - General Internal Medicine 08/08/22 Frantz Conley MD [address] [facility] [address] [place] [address] PCP - ACO Reach 08/16/22 Radiology Teacher Relationship Specialty Start Date End Date Frantz Conley MD [address] [facility] [address] [place] [address] PCP - General Internal Medicine 08/08/22 Frantz Conley MD [address] [facility] [address] [place] [address] PCP - ACO Reach 08/16/22 Goals (unrecognized section and content) Goals may [...] BE BASED ON THE PRIMARY CLINICAL RECORDS. [facility] provides no warranty or guarantee of the accuracy or completeness of information in this document.
[2024-04-21 14:54] LABS: Mean Corpuscular HGB Conc 32.5 g/dL (29.9-35.2); Mean Corpuscular Hemoglobin 31.6 pg (25.9-34.0); Mean Corpuscular Volume 97.1 fL (80.0-94.0); Mean Platelet Volume 11.1 fL (9.5-13.5); Platelet Count 84 10^3/uL (150-450); Red Blood Count 4.12 10^6/uL (4.70-6.10); Red Cell Distribution Width 13.6 % (11.0-15.0); White Blood Count 4.9 10^3/uL (4.0-11.0)
[2024-04-21 15:15] LABS: Band Neutrophils Absolute 0.1 10^3/uL (0.0-0.3); Eosinophils Absolute Manual 0.09 10^3/uL (0.00-0.70); Lymphocytes Absolute Manual 0.88 10^3/uL (1.20-3.80); Monocytes Absolute Manual 0.39 10^3/uL (0.30-0.80); Segmented Neut Absolute Manual 3.43 10^3/uL (1.4-6.5)
[2024-04-21 15:23] LABS: Alanine Aminotransferase 55 U/L (16-63); Albumin Globulin Ratio 0.8; Alkaline Phosphatase 135 U/L (46-116); Anion Gap 10.3; Aspartate Amino Transferase 56 U/L (15-37); BUN Creatinine Ratio 23.1; Bilirubin Total 0.7 mg/dL (0.2-1.0); Calcium 8.5 mg/dL (8.5-10.1); Chloride 109 mmol/L (98-107); Estimated GFR (African America >60 (>=60 mL/min/1.73m^2); Estimated GFR (Non-African Ame >60 (>=60 mL/min/1.73m^2); Globulin 3.7 g/dL; Glucose 106 mg/dL (74-106); Potassium 4.3 mmol/L (3.5-5.1); Sodium 141 mmol/L (136-145); Total Protein 6.7 g/dL (6.4-8.2)
[2024-04-21 15:35] LABS: Percent Iron Saturation 30.6 %
[2024-04-23 05:07] LABS: Vitamin B12 999 pg/mL (232-1245)
== END 2024-04-22 11:13 | disposition home or self-care (01) ==
LOC: HEMC 07:43
PROVIDERS: PCP Internal Medicine; Visit Provider Internal Medicine Hematology & Oncology
DX: D50.9 Iron deficiency anemia, unspecified (principal); D50.0 Iron deficiency anemia secondary to blood loss (chronic); K90.9 Intestinal malabsorption, unspecified; D72.819 Decreased white blood cell count, unspecified; D69.6 Thrombocytopenia, unspecified; D64.9 Anemia, unspecified; Z90.49 Acquired absence of other specified parts of digestive tract; Z95.5 Presence of coronary angioplasty implant and graft; I25.10 Atherosclerotic heart disease of native coronary artery without angina pectoris; K74.60 Unspecified cirrhosis of liver; R16.1 Splenomegaly, not elsewhere classified
CPT/HCPCS: 36415; 80053; 82306; 82607; 82728; 83540; 83550; 85007; 85027; G0463

== ENCOUNTER 2024-09-23 09:15 | Outpatient (OUT) | payer MEDICARE, OTHER, SELFPAY ==
[2024-09-23 09:57] LABS: Hematocrit 37.5 % (42.0-54.0); Hemoglobin 12.6 g/dL (14.0-18.0); Mean Corpuscular HGB Conc 33.6 g/dL (29.9-35.2); Mean Corpuscular Hemoglobin 31.2 pg (25.9-34.0); Mean Corpuscular Volume 92.8 fL (80.0-94.0); Platelet Count 65 10^3/uL (150-450); Red Blood Count 4.04 10^6/uL (4.70-6.10); White Blood Count 3.3 10^3/uL (4.0-11.0)
[2024-09-23 10:08] LABS: Alanine Aminotransferase 50 U/L (16-63); Albumin Globulin Ratio 0.8; Albumin Level 2.9 g/dL (3.4-5.0); Alkaline Phosphatase 115 U/L (46-116); Anion Gap 12.9; Aspartate Amino Transferase 53 U/L (15-37); Blood Urea Nitrogen 17.0 mg/dL (7.0-18.0); Calcium 8.9 mg/dL (8.5-10.1); Carbon Dioxide 26.4 mmol/L (21.0-32.0); Chloride 110 mmol/L (98-107); Estimated GFR (African America >60 (>=60 mL/min/1.73m^2); Estimated GFR (Non-African Ame >60 (>=60 mL/min/1.73m^2); Globulin 3.5 g/dL; Glucose 112 mg/dL (74-106); Potassium 4.3 mmol/L (3.5-5.1); Sodium 145 mmol/L (136-145); Total Protein 6.4 g/dL (6.4-8.2)
[2024-09-23 10:15] LABS: Iron 51.0 ug/dL (65.0-175.0); Percent Iron Saturation 14.1 %; Total Iron Binding Capacity 361.0 ug/dL (250.0-450.0)
[2024-09-23 10:30] LABS: Basophils Abs Manual 0.00 10^3/uL (0.00-0.10); Basophils Percent Manual 0.0 % (0.2-2.0); Eosinophils Absolute Manual 0.13 10^3/uL (0.00-0.70); Eosinophils Percent Manual 4.0 % (0.9-7.0); Lymphocytes Absolute Manual 0.56 10^3/uL (1.20-3.80); Lymphocytes Percent Manual 17.0 % (20.5-60.0); Metamyelocytes Absolute Manual 0.03; Monocytes Absolute Manual 0.39 10^3/uL (0.30-0.80); Monocytes Percent Manual 12.0 % (1.7-12.0); Segmented Neut Absolute Manual 2.17 10^3/uL (1.4-6.5); Segmented Neutrophils % Manual 66.0 (43.0-75.0)
[2024-09-23 10:38] LABS: Ferritin 42.0 ng/mL (26.0-388.0)
[2024-09-24 04:07] LABS: Vitamin B12 1204 pg/mL (232-1245)
== END 2024-09-23 09:16 | disposition home or self-care (01) ==
LOC: LAB 09:23
PROVIDERS: PCP Internal Medicine; Visit Provider Internal Medicine Hematology & Oncology
DX: D64.9 Anemia, unspecified (principal); D50.9 Iron deficiency anemia, unspecified; D50.0 Iron deficiency anemia secondary to blood loss (chronic); K90.9 Intestinal malabsorption, unspecified; D72.819 Decreased white blood cell count, unspecified; D69.6 Thrombocytopenia, unspecified
CPT/HCPCS: 36415; 80053; 82607; 82728; 83540; 83550; 85007; 85027

== ENCOUNTER 2024-10-01 08:06 | Outpatient (OUT) | payer MEDICARE, OTHER, SELFPAY ==
--- OUTSIDE RECORDS SUMMARY | 2024-04-21 10:00 | XMS_ITS ---
Author Organization The [facility] in [place] Address [address] [place] [address] Care Team Providers Care Food Vendor Name Role Phone Jarvis CROFT, Frantz Primary Care Provider Unavailab Dior Bar Unavailable [phone] REASON FOR VISIT MD Encounters Encounter Location Date Provider Diagnosis The [facility] Oncology [address] [place] [address] 04/21/2024 Dior Sevilla Plan Of Treatment Next Appt Details Provider Name:Dior Sevilla , 12/08/2024 03:00:00 PM, [address] [place], [address], Progress Notes * Pankaj PAYNEDOB:[birth year] (79 yo M)Acc No.[id number]:04/21/2024 UNLOCKED PROGRESS NOTE Progress Notes Patient: Pankaj ROMERO Provider: Rishabh Sevilla M.D. :1945 A ge:78 Y S ex:Male Date:04/21/2024 Address[address], [id number] Pcp:Frantz Conley MD Subjective: * Chief Complaints: * 1 . MD. * Medical History: Objective: * Vitals: Assessment: Plan: * Treatment: * * Electronic signature of Niki Sevilla MD, [id number] on 10/01/2024 at 08:13 AM EDT Sign off status: Pending Visit Status: Jennifer RUIZ (Voice) * Provider: Rishabh Sevilla M.D. Date: 0 04/21/2024 Generated for Krishna jones/Paul/Sandy on: 0 10/01/2024 08:13 AM EDT
--- OUTSIDE RECORDS SUMMARY | 2024-09-29 10:30 | XMS_ITS ---
Author Organization The [facility] in [place] Address [address] [place] [address] Care Team Providers Care Manager Behavioral Name Role Phone Jarvis CROFT, Frantz Primary Care Provider Unavailab Dior Bar Unavailable [phone] REASON FOR VISIT MD Encounters Encounter Location Date Provider Diagnosis [facility] Oncology [address] [place] [address] 09/29/2024 Dior Sevilla Plan Of Treatment Next Appt Details Provider Name:Dior Sevilla , 12/08/2024 03:00:00 PM, [address] [place], [address], Progress Notes * Pankaj PAYNEDOB:[birth year] (79 yo M)Acc No.[id number]:09/29/2024 UNLOCKED PROGRESS NOTE Progress Notes Patient: Pankaj ROMERO Provider: Rishabh Sevilla M.D. :1945 A ge:79 Y S ex:Male Date:09/29/2024 Address[address], [place] Pcp:Frantz Conley MD Subjective: * Chief Complaints: * 1 . MD. * Medical History: Objective: * Vitals: Assessment: Plan: * Treatment: * * Electronic signature of Niki Sevilla MD, [id number] on 10/01/2024 at 08:13 AM EDT Sign off status: Pending Visit Status: Jennifer RUIZ (Voice) * Provider: Rishabh Sevilla M.D. Date: 0 09/29/2024 Generated for Krishna jones/Paul/Sandy on: 0 10/01/2024 08:13 AM EDT
--- OUTSIDE RECORDS SUMMARY | 2024-09-29 11:00 | XMS_ITS ---
Author Organization The [facility] in [place] Address [address] [place] [address] Care Team Providers Care Residential Case Manager Name Role Phone Jarvis CROFT, Frantz Primary Care Provider Unavailab Dior Bar Unavailable [phone] REASON FOR VISIT MD Encounters Encounter Location Date Provider Diagnosis [facility] Oncology [address] [place] [address] 09/29/2024 Dior Sevilla Plan Of Treatment Next Appt Details Provider Name:Dior Sevilla , 12/08/2024 03:00:00 PM, [address] [place], [address], Progress Notes * Pankaj PAYNEDOB:[birth year] (79 yo M)Acc No.[id number]:09/29/2024 UNLOCKED PROGRESS NOTE Progress Notes Patient: Pankaj ROMERO Provider: Rishabh Sevilla M.D. :1945 A ge:79 Y S ex:Male Date:09/29/2024 Address[address], [place] Pcp:Frantz Conley MD Subjective: * Chief Complaints: * 1 . MD. * Medical History: Objective: * Vitals: Assessment: Plan: * Treatment: * * Electronic signature of Niki Sevilla MD, [id number] on 10/01/2024 at 08:13 AM EDT Sign off status: Pending Visit Status: C ANC (Cancelled) * Provider: Rishabh Sevilla M.D. Date: 09/29/2024 Generated for Krishna jones/Paul/Sandy on: 0 10/01/2024 08:13 AM EDT
--- OUTSIDE RECORDS SUMMARY | 2024-10-01 08:13 | XMS_ITS | Encounter Summary ---
Author Organization [facility] Address [address] [place] [address] Care Team Providers Care Senior Accounts Payable Specialist Name Role Phone Frantz Conley MD Primary Care Provider [phone] Frantz Conley MD Unavailable [phone] Jazmin Toribio CHIEF DEPUTY SHERIFF Unavailable [phone] Dang Bosch LPN Unavailable Encounter Details Date Type Department Care Team (Late st Contact Info) Description 04/30/2024 Abstract [facility] [address] [place] [address] Frantz Conley MD [address] [facility] [address] [place] [address] Social History Tobacco Use Types Packs/Day Years Used Date Smoking Tobacco: Never Smokeless Tobacco: Never Alcohol Use Standard Drinks/Week Comments Not Currently 0 (1 standard drink = 0.6 oz pure alcohol) caffeine intake: 1-2 cups per day. Humiliation, Afraid, Rape, and Kick questionnair e Answer Date Recorded Within the last year, have y ou been afraid of your partner or ex-partner? No 04/15/2023 Within the last year, have y ou been humiliated or emotionally abused in other ways by your partner or ex-partner? No Within the last year, have y ou been kicked, hit, slapped, or otherwise physically hurt by your partner or ex-partner? No 04/15/2023 Within the last year, have y ou been raped or forced to have any kind of sexual activity by your partner or ex-partner? No 04/15/2023 Social Connection and Isolat ion Panel [NHANES] Answer Date Recorded In a typical week, how many times do you talk on the phone with family, friends, or neighbors? Once a week 04/15/2023 How often do you get togethe r with friends or relatives? Patient declined 04/15/2023 How often do you attend chur or shinto services? More than 4 times per year 04/15/2023 Do you belong to any clubs o r organizations such as mandaen groups, unions, fraternal or athletic groups, or school groups? Yes 04/15/2023 How often do you attend meet ings of the clubs or organizations you belong to? More than 4 times per year 04/15/2023 Are you , , di vorced, , never , or living with a partner? 04/15/2023 AUDIT-C Answer Date Recorded Q1: How often do you have a drink containing alcohol? Never 04/15/2023 Q2: How many drinks containi ng alcohol do you have on a typical day when you are drinking? Patient does not drink Q3: How often do you have si x or more drinks on one occasion? Never 04/15/2023 Overall Financial Resource Strain (CARDIA) Answe r Date Recorded How hard is it for you to pa y for the very basics like food, housing, medical care, and heating? Not hard at all 04/15/2023 PHQ-2 Answer Date Recorded Patient Health Questionnaire-2 Score 0 10/21/2023 [facility] - Occupational Stress Questionnaire Answer Date Recorded Do you feel stress - tense, restless, nervous, or anxious, or unable to sleep at night because your mind is troubled all the time - these days? Patient declined 04/15/2023 Exercise Vital Sign Answer Date Recorde d On average, how many days pe r week do you engage in moderate to strenuous exercise (like a brisk walk)? Patient declined On average, how many minutes do you engage in exercise at this level? Patient declined 04/15/2023 Hunger Vital Sign Answer Date Recorded Within the past 12 months, y ou worried that your food would run out before you got the money to buy more. Never true 04/15/19 24 Within the past 12 months, t he food you bought just didn't last and you didn't have money to get more. Never true 04/15/2023 PRAPARE - Transportation Answer Date Re corded In the past 12 months, has l ack of transportation kept you from medical appointments or from getting medications? No 03/26 In the past 12 months, has l ack of transportation kept you from meetings, work, or from getting things needed for daily living? No 04/15/2023 Housing Stability Vital Sign Answer Stevenson e Recorded In the last 12 months, was t here a time when you were not able to pay the mortgage or rent on time? No 04/15/2023 In the last 12 months, how many places have you lived? 1 04/15/2023 In the last 12 months, was t here a time when you did not have a steady place to sleep or slept in a penitentiary (including now)? No 04/15/2023 Sex and Gender Information Value Date Recorded Sex Assigned at Not on file Legal Sex Male 6:37 PM EDT Gender Identity Not on file Sexual Orientation Not on file documented as of this encounter Plan of Treatment Upcoming Encounters Date Type Department Care Team (Late st Contact Info) Description 10/05/2024 11:00 AM EDT Office Visit [facility] [address] [facility] [address] [place] [id number] Frantz Conley MD [address] [place] [address] 10/20/2024 11:00 AM EDT Office Visit [facility] [address] [place] [address] Rosanna Bautista PA [address] [place] [address] documented as of this encounter Visit Diagnoses Not on filedocumented in this encounter Additional Health Concerns Assessment Noted Time PHQ-9 Depression Total Score: 0 10/21/19 24 11:00 AM EDT documented as of this encounter Care Teams Senior Accounts Payable Specialist Relationship Specialty Start Date End Date Frantz Conley MD [address] [facility] [address] [place] [address] PCP - General Internal Medicine 08/08/22 Frantz Conley MD [address] [facility] [address] [place] [address] PCP - ACO Reach 08/16/22 Jazmin Toribio, BLAYNE [address] [place] [address] Nitroglycerin Separator Operator Family Medicine 08/04/24 08/07/24 Dang Bosch LPN [address] [facility] [address] [place] [address] 08/07/24 08/07/24 documented as of this encounter
--- OUTSIDE RECORDS SUMMARY | 2024-10-01 08:13 | XMS_ITS | Encounter Summary ---
Author Organization [facility] Address [address] [place] [address] Care Team Providers Care Last Dipper Name Role Phone Frantz Conley MD Primary Care Provider [phone] Frantz Conley MD Unavailable [phone] Jazmin Toribio INDEPENDENT DISTRIBUTOR Unavailable [phone] Dang Bosch WET COTTON FEEDER Unavailable Encounter Details Date Type Department Care Team (Late st Contact Info) Description 05/07/2024 Abstract [facility] 112 [facility] 110 [place] [phone] Frantz Conley MD 112 [facility] 110 [place] [address] Social History Tobacco Use Types [...] How often do you attend chur or pentecostalism services? More than 4 times per year 04/15/2023 Do you belong to any clubs o r organizations such as orthodox groups, unions, fraternal or athletic groups, or [...] Recorded Patient Health Questionnaire-2 Score 0 10/21/2023 [facility] of Occupat ional Health - Occupational Stress [...] place to sleep or slept in a assisted (including now)? No 04/15/2023 Sex and Gender Information Value Date Recorded Sex Assigned at Not on file Legal Sex Male 6:37 PM EDT Gender Identity Not on file Sexual Orientation Not on file documented as of this encounter Plan of Treatment Upcoming Encounters Date Type Department Care Team (Late st Contact Info) Description 10/05/2024 11:00 AM EDT Office Visit [facility] [address] [facility] 110 [place] [phone] Frantz Conley MD [address] [facility] [address] [place] [address] 10/20/2024 11:00 AM EDT Office Visit [facility] [address] [facility] [address] [place] [address] Rosanna Bautista PA [address] [facility] [address] [place] [address] documented as of this encounter Visit Diagnoses Not on filedocumented in this encounter Additional Health Concerns Assessment Noted Time PHQ-9 Depression Total Score: 0 10/21/19 24 11:00 AM EDT documented as of this encounter Care Teams Last Dipper Relationship Specialty Start Date End Date Frantz Conley MD [address] [facility] [address] [place] [address] PCP - General Internal Medicine 08/08/22 Frantz Conley MD [address] [facility] [address] [place] [address] PCP - ACO Reach 08/16/22 Jazmin Toribio, BLAYNE [address] [place] [address] Lab Specialist Family Medicine 08/04/24 08/07/24 Dang Bosch LPN [address] [facility] [address] [place] [address] 08/07/24 08/07/24 documented as of this encounter
--- OUTSIDE RECORDS SUMMARY | 2024-10-01 08:13 | XMS_ITS | Encounter Summary ---
Author Organization [facility] Address [address] [place] [address] Phone Care Team Providers Care Finishing Wire Sawyer Name Role Phone Frantz Conley MD Primary Care Provider Encounter Details Date Type Department Care Team (Late st Contact Info) Description 09/17/2023 Scanned Document [facility] [address] [place] [phone] Scanning, Generic Provider Social History Tobacco Use Types Packs/Day Years Used Date Smoking Tobacco: Former Cigarettes Q uit: 2003 Smokeless Tobacco: Never Alcohol Use Standard Drinks/Week Comments Never 0 (1 standard drink = 0.6 oz pur e alcohol) Sex and Gender Information Value Date Recorded Sex Assigned at Male 06/29/2023 10:10 AM EDT Legal Sex Male 2:05 PM EDT Gender Identity Male 06/29/2023 10:10 AM EDT Sexual Orientation Straight 06/29/2023 10 :10 AM EDT documented as of this encounter Plan of Treatment Upcoming Encounters Date Type Department Care Team (Late st Contact Info) Description 09/14/2025 2:00 PM EDT Office Visit [facility] [address] [facility] [address] [place] [address] Crescencio Marin DO 703 [facility] 2, [address] [place], [place] [id number] documented as of this encounter Visit Diagnoses Not on filedocumented in this encounter Additional Health Concerns Assessment Noted Time A fall risk assessment has been complete d for the patient 06/20/2023 10:03 AM EDT documented as of this encounter Care Teams Finishing Wire Sawyer Relationship Specialty Start Date End Date Frantz Conley MD [address] [address] PCP - General Internal Medicine 06/20/23 documented as of this encounter
--- OUTSIDE RECORDS SUMMARY | 2024-10-01 08:13 | XMS_ITS | Encounter Summary ---
Author Organization [facility] Address [address] [place] [address] Care Team Providers Care Sand Car Worker Name Role Phone Frantz Conley MD Primary Care Provider [phone] Frantz Conley MD Unavailable [phone] Encounter Details Date Type Department Care Team (Late st Contact Info) Description 09/29/2024 Telephone [facility] 100 [address] [facility] 100 [place] [phone] Frantz Conley MD 112 [facility] 110 [place], [place] [id number] Social History Tobacco Use Types Packs/Day Years [...] 04/15/2023 How often do you attend chur ch or hoahaoism services? More than 4 times per year 04/15/2023 Do you belong to any clubs o r organizations such as taoist groups, unions, fraternal or athletic groups, or [...] Recorded Patient Health Questionnaire-2 Score 0 10/21/2023 [facility] of Occupat ional Health - Occupational Stress [...] place to sleep or slept in a senior living (including now)? No 04/15/2023 Sex and Gender Information Value Date Recorded Sex Assigned at Not on file Legal Sex Male 6:37 PM EDT Gender Identity Not on file Sexual Orientation Not on file documented as of this encounter Miscellaneous Notes * Telephone Encounter - Franchesca Lewis LPN - 09/30/2024 1:11 PM EDT Pt notified to hold coreg until his upcoming appt * Telephone Encounter - Silvia Dorado - 09/29/2024 4:33 PM EDT Daiana from Dr. Sevilla's office called. Pankaj has an upcoming visit with Dr. Conley and Dr. Sevilla wanted to report Pankaj's vitals from his visit today. His HR was 44 and BP 86/58. BP was checked manually 3 times. Patient denies any dizziness except for getting out of bed in the morning and he sits til it goes away. documented in this encounter Plan of Treatment Upcoming Encounters Date Type Department Care Team (Late st Contact Info) Description 10/05/2024 11:00 AM EDT Office Visit [facility] [address] [facility] [address] [place] [address] Frantz Conley MD [address] [facility] [address] [place] [address] 10/20/2024 11:00 AM EDT Office Visit [facility] [address] [facility] [address] [place] [address] Rosanna Bautista PA [address] [facility] [address] [place] [address] documented as of this encounter Visit Diagnoses Not on filedocumented in this encounter Additional Health Concerns Assessment Noted Time PHQ-9 Depression Total Score: 0 10/21/19 24 11:00 AM EDT documented as of this encounter Care Teams Sand Car Worker Relationship Specialty Start Date End Date Frantz Conley MD [address] [facility] [address] [place] [address] PCP - General Internal Medicine 08/08/22 Frantz Conley MD [address] [facility] [address] [place] [address] PCP - ACO Reach 08/16/22 documented as of this encounter
--- OUTSIDE RECORDS SUMMARY | 2024-10-01 08:13 | XMS_ITS | Encounter Summary ---
Author Organization [facility] Address [address] [place] [address] Care Team Providers Care Atm Mechanic Name Role Phone Frantz Conley MD Primary Care Provider [phone] Reason for Visit * Reason Comments Med Refill Encounter Details Date Type Department Care Team (Late st Contact Info) Description 04/05/2023 Refill [facility] [address] [place] [address] Karl Menon MD [address] [facility] [place] [address] Coronary artery disease, unspecified vessel or lesion type, unspecified whether angina present, unspecified whether [place] or transplanted heart Social History Tobacco Use Types Packs/Day Years Used Date Smoking Tobacco: Never Smokeless Tobacco: Never Sex and Gender Information Value Date Recorded Sex Assigned at Not on file Legal Sex Male 12:09 AM EDT Gender Identity Not on file Sexual Orientation Not on file documented as of this encounter Miscellaneous Notes * Telephone Encounter - Karina Crawford MA - 04/05/2023 9:38 AM EST Approving, but needs appt for additional refills. documented in this encounter Plan of Treatment Not on file documented as of this encounter Visit Diagnoses Diagnosis Coronary artery disease, unspecified vessel or lesion type, unspecified whether angina present, unspecified whether [place] or transplanted heart documented in this encounter Care Teams Atm Mechanic Relationship Specialty Start Date End Date Frantz Conley MD PCP - General 09/17/22 documented as of this encounter
--- OUTSIDE RECORDS SUMMARY | 2024-10-01 08:13 | XMS_ITS | Encounter Summary ---
Author Organization [facility] Address [address] [place] [address] Care Team Providers Care Tie Bucker Name Role Phone Frantz Conley MD Primary Care Provider [phone] Frantz Conley MD Unavailable [phone] Encounter Details Date Type Department Care Team (Late st Contact Info) Description 09/09/2024 Abstract [facility] 112 [facility] 110 [place] [address] Frantz Conley MD 112 [facility] 110 [place] [address] Social History Tobacco Use Types [...] often do you attend chur ch or yarsani services? More than 4 times per year 04/15/2023 Do you belong to any clubs o r organizations such as congregation groups, unions, fraternal or athletic groups, or [...] place to sleep or slept in a alf (including now)? No 04/15/2023 Sex and Gender [...] [address] [facility] [address] [place] [address] Frantz Conley MD [address] [facility] [address] [place] [address] 10/20/2024 11:00 AM EDT Office Visit [facility] [address] [facility] [address] [place] [address] Rosanna Bautista PA [address] [facility] [address] [place] [address] documented as of this encounter Visit Diagnoses Not on filedocumented in this encounter Additional Health Concerns Assessment Noted Time PHQ-9 Depression Total Score: 0 10/21/19 11:00 AM EDT documented as of this encounter Care Teams Tie Bucker Relationship Specialty Start Date End Date Frantz Conley MD [address] [facility] 110 [place] [address] PCP - General Internal Medicine 08/08/22 Frantz Conley MD [address] [facility] 110 [place] [address] PCP - ACO Reach 08/16/22 documented as of this encounter
--- OUTSIDE RECORDS SUMMARY | 2024-10-01 08:13 | XMS_ITS | Clinical Summary ---
Author Organization [facility] Address [address] [place] [address] Care Team Providers Care Crankshaft Straightener Name Role Phone Frantz Conley MD Primary Care Provider [phone] Frantz Conley MD Unavailable [phone] Allergies No known active allergies Medications Multiple Vitamins-Minerals (ONE DAILY ADULTS 50+ PO) Take 1 tablet by mouth 1 (one) time each day. Active Black-3 Fatty Acids (Fish Oil) 1000 MG capsule delayed-release Take 1 capsule by mouth 1 (one) time each day. 5 Active levothyroxine (Synthroid, Levoxyl) 88 MCG tabletIndications:A cquired hypothyroidism take 1 tablet by mouth every morning ON AN EMPTY STOMACH 100 tablet 3 4 Active omeprazole (PriLOSEC) [address] capsuleIndications: Gastroesophageal reflux disease without esophagitis TAKE 1 CAPSULE IN THE MORNING AND 1 CAPSULE IN THE EVENING. TAKE BEFORE MEALS. 180 capsule 3 4 Active atorvastatin (Lipitor) 20 MG tabletIndications:M ixed hyperlipidemia Take 1 tablet (20 mg) by mouth at bedtime 90 tablet 3 5 04/22/19 26 Active tiZANidine (Zanaflex) 4 MG tabletIndications:M uscle cramps TAKE 1 TABLET DAILY AT NIGHT TIME NEEDED 90 tablet 3 5 Active carvedilol (Coreg) 3.125 MG tabletIndications:H istory of coronary artery stent placement Take 1 tablet (3.125 mg) by mouth in the morning and 1 tablet (3.125 mg) in the evening. Take with meals. 180 tablet 3 5 Active clopidogrel (Plavix) 75 MG tabletIndications:P VCs (premature ventricular contractions) Take 1 tablet (75 mg) by mouth Daily 90 tablet 3 5 Active Active Problems Problem Noted Date Diagnosed Date 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hepatitis (SCANLON) 10/21/2023 History of coronary artery stent placement 06/19 Former cigarette smoker 06/20/2023 Iron deficiency anemia 05/08/2023 Pancytopenia, acquired 04/22/2023 Benign essential HTN 09/17/2022 Overview (04/22/2023): Last Assessment & Plan: Hypertension is well controlled Continue lifestyle modifications- low sodium diet, heart healthy diet and regular activity. 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), w CHF 09/17/2022 Overview (04/22/2023): Last Assessment & Plan: HTN is well controlled F/U with PCP for monitoring of renal function Dilatation of aorta 09/17/2022 Overview (04/22/2023): Mild aortic dilation on echo 2018 Last Assessment & Plan: Mild dilatation on last echo- will repeat echo at 1 year- Oct-Nov Mixed hyperlipidemia 09/17/2022 Overview (10/21/2023): Last Assessment & Plan: Continue statin Abnormal LFTs 08/13/2022 Acquired hypothyroidism 08/13/2022 Cervical spondylolysis 08/13/2022 Chronic insomnia 08/13/2022 Coronary artery disease invo lving [place] coronary artery of [place] heart without angina pectoris 08/13/2022 Dermatophytosis of nail 08/13/2022 Diverticulosis of colon 08/13/2022 Gastroesophageal reflux disease 08/13/2022 Indigestion 08/13/2022 Muscle cramps 08/13/2022 Other chronic pain 08/13/2022 PVCs (premature ventricular contractions) 2022 Sinus arrhythmia 08/13/2022 Situational anxiety 08/13/2022 Unsteadiness on feet 08/13/2022 Vitamin D deficiency 08/13/2022 Resolved Problems Problem Noted Date Diagnosed Date Resolved Date Calculus of gallbladder with cholecystitis 10/21/2023 10/21/2023 Fatty liver disease, nonalcoholic 05/08/2023 10/21/2023 Acute cholecystitis 08/13/2022 10/21/19 Calculus of gallbladder with acute on chronic cholecystitis without obstruction 08/13/20222023 Cholelithiasis without obstruction 08/13/2022 10/21/2023 Intracranial subarachnoid hemorrhage 08/13/2022 10/21/2023 Right upper quadrant pain 08/13/2022 Encounters Date Type Department Care Team Description 09/29/2024 Telephone [facility] [address] [facility] [address] [place] [address] Frantz Conley MD 09/23/2024 Clinisync Result Encounter [facility] External Department Unsolicited Provider, Generic External Data 09/09/2024 Abstract [facility] [address] [facility] [address] [place] [address] Frantz Conley MD 08/27/2024 Refill [facility] [address] [place] [address] Frantz Conley MD PVCs (premature ventricular contractions) 08/17/2024 Refill [facility] [address] [place] [address] Frantz Conley MD History of coronary artery stent placement 08/07/2024 Patient Outreach [facility] [address] [place] [address] Dang Bosch LPN 07/23/2024 Refill [facility] [address] [facility] [address] [place] [address] Flower Jarquin MA PVCs (premature ventricular contractions) from Last 3 Months Immunizations Immunization Administration Dates Next Due Influenza, High Dose Seasona l, Preservative Free 12/15/2023,01/06/2021,02/06/2019 Influenza, High-dose Seasona l, Quadrivalent, Preservative Free 03/12/2024,03/21/2022,01/06/2021,01/05,01/14/2018,12/03/2016 Influenza, Seasonal, Quadriv alent, Adjuvanted 01/04/2023 Influenza, seasonal, injecta ble, preservative free 03/28/2015 Influenza, seasonal, intrade rmal, preservative free 01/10/2015 Pneumococcal Polysaccharide PPSV23 09/29/2018 Zoster, Recombinant 08/18/2019,04/10/2019 Family History Medical History Relation Name Comments Kidney disease Mother Relation Name Status Comments Father Mother Social History Tobacco Use Types Packs/Day Years [...] declined 04/15/2023 How often do you attend [facility] or holiness services? More than 4 times per year 04/15/2023 Do you belong to any clubs o r organizations such as synagogue groups, unions, fraternal or athletic groups, or [...] Recorded Patient Health Questionnaire-2 Score 0 10/21/2023 [facility] of Occupat ional Health - Occupational Stress [...] on file Sexual Orientation Not on file Last Filed Vital Signs Vital Sign Reading Time Taken Comments Blood Pressure 122/66 03/12/2024 10:59 AM EST Pulse 56 03/12/2024 10:59 AM EST Temperature - - Respiratory Rate 16 10/21/2023 11:17 AM EDT Oxygen Saturation 98% 03/12/2024 10:59 AM EST Inhaled Oxygen Concentration - - Weight 80.7 kg (178 lb) 03/12/2024 10:59 AM EST Height 166.4 cm (5' 5.5 ) 03/12/2024 10:59 AM ES T Body Mass Index 29.17 03/12/2024 10:59 AM EST Plan of Treatment Upcoming Encounters Date Type Department Care Team (Late st Contact Info) Description 10/05/2024 11:00 AM EDT Office Visit [facility] 112 [address] [facility] 110 [place] [phone] Frantz Conley MD [address] [facility] 110 [place] [address] 10/20/2024 11:00 AM EDT Office Visit [facility] [address] [facility] 110 [place] [address] Rosanna Buatista PA [address] [facility] 110 [place] [address] Health Maintenance Due Date Last Done Comments Pneumococcal Vaccine: 65+ Ye ars (2 of 2 - PCV) 09/30/2019 09/29/2018 Medicare Annual Wellness (AWV) 10/20/2024 0 10/21/2023, 08/22/2022, 04/14/2021 Influenza Vaccine (#1) 2024 , 12/15/2023, 01/04/2023, Additional history exists Colonoscopy Discontinued 10/23/2023, 09/22, 10/08/2014 Colorectal Cancer Screening Discontinued CT Colonography Discontinued FIT-DNA Discontinued FIT Discontinued FOBT Discontinued Sigmoidoscopy Discontinued Procedures Procedure Name Priority Date/Time Associated Diagnosis Comments VITAMIN B12 Routine 09/23/2024 9:36 AM EDT [facility] FERRITIN Routine 09/23/2024 9:36 AM EDT MHPT DIFFERENTIAL Routine 09/23/2024 9:3 6 AM EDT [facility] IRON AND TIBC Routine 09/23/2024 9 :36 AM EDT [facility] CMP (CMP) (FOR REMOTE [facility] USE) Routine 09/23/2024 9:36 AM EDT ALL CBC WITH AUTO DIFF Routine 09/23/2024 9:36 AM EDT HM COLONOSCOPY Routine 10/23/2023 from Last 3 Months or Most Recently Relevant to Health Maintenance Results * VITAMIN B12 (09/23/2024 9:36 AM EDT) VITAMIN B12 1204 232 - 1245 pg/mL [facility] Comment: Performed at: - Lab[address] [id number] [employer]: Charlie Klein PhD, Phone: [phone] 09/23/2024 9:36 AM EDT 09/23/2024 9:38 AM EDT Narrative [facility] - 09/24/2024 4:07 AM EDT us Generic External Data Provider LAB BLOOD ORDERAB LES Final Result [facility] * (ABNORMAL) MHPT DIFFERENTIAL (09/23/2024 9:36 AM EDT) SEGMENTED NEUTROPHILS % MANUAL 66.0 43.0 - 75.0 TBH LYMPHOCYTES PERCENT MANUAL 17.0(L) 20.5 - 60.0 % TBH MONOCYTES PERCENT MANUAL 12.0 1.7 - 12.0 % TBH EOSINOPHILS PERCENT MANUAL 4.0 0.9 - 7.0 % TBH BASOPHILS PERCENT MANUAL 0.0(L) 0.2 - 2.0 % TBH METAMYELOCYTES % 1.0 [facility] SEGMENTED NEUT ABSOLUTE MANUAL 2.17 1.4 - 6.5 10 3/uL TBH LYMPHOCYTES ABSOLUTE MANUAL 0.56(L) 1.20 - 3.80 10 3/uL TBH MONOCYTES ABSOLUTE MANUAL 0.39 0.30 - 0.80 10 3/uL TBH EOSINOPHILS ABSOLUTE MANUAL 0.13 0.00 - 0.70 10 3/uL TBH BASOPHILS ABS MANUAL 0.00 0.00 - 0.10 10 3/uL TBH METAMYELOCYTES ABSOLUTE MANUAL 0.03 TBH 09/23/2024 9:36 AM EDT 09/23/2024 9:38 AM EDT Narrative [facility] - 09/23/2024 10:31 AM EDT Generic External Data Provider [facility] F inal Result Performing Organization Address [facility] Co de Phone Number FRANCISCO JAVIER [facility] * (ABNORMAL) [facility] IRON AND TIBC (09/23/2024 9:36 AM EDT) TBH IRON 51.0(L) 65.0 - 175.0 ug/dL TBH TBH TOTAL IRON BINDING CAPACITY 361.0 250.0 - 450.0 ug/dL TBH TBH PERCENT IRON SATURATION 14.1 % TBH 09/23/2024 9:36 AM EDT 09/23/2024 9:38 AM EDT Narrative [facility] - 09/23/2024 10:19 AM EDT Generic External Data Provider [facility] F inal Result [facility] * [facility] FERRITIN (09/23/2024 9:36 AM EDT) FERRITIN 42.0 26.0 - 388.0 ng/mL [facility] 09/23/2024 9:36 AM EDT 09/23/2024 9:38 AM EDT Narrative [facility] - 09/23/2024 10:42 AM EDT Generic External Data Provider [facility]NC F inal Result [facility] * (ABNORMAL) [facility] CMP (CMP) (FOR REMOTE [facility] USE) (09/23/2024 9:36 AM EDT) SODIUM 145 136 - 145 mmol/L TBH POTASSIUM 4.3 3.5 - 5.1 mmol/L TBH CHLORIDE 110(H) 98 - 107 mmol/L TBH CARBON DIOXIDE 26.4 21.0 - 32.0 mmol/L TBH ANION GAP 12.9 TBH GLUCOSE 112(H) 74 - 106 mg/dL TBH BLOOD UREA NITROGEN 17.0 7.0 - 18.0 mg/dL TBH CREATININE 0.83 0.70 - 1.30 mg/dL TBH TBH EGFR-AF BULGARIAN >60 >=60 mL/min/1. 73m 2 TBH TBH EGFR-NON AF BULGARIAN >60 >=60 mL/min/1. 73m 2 TBH BUN CREATININE RATIO 20.5 TBH CALCIUM 8.9 8.5 - 10.1 mg/dL TBH BILIRUBIN TOTAL 0.7 0.2 - 1.0 mg/dL TBH ASPARTATE AMINO TRANSFERASE 53(H) 15 - 37 U/L TBH ALANINE AMINOTRANSFERASE 50 16 - 63 U/L TBH ALKALINE PHOSPHATASE 115 46 - 116 U/L TBH TOTAL PROTEIN 6.4 6.4 - 8.2 g/dL TBH ALBUMIN LEVEL 2.9(L) 3.4 - 5.0 g/dL TBH GLOBULIN 3.5 g/dL TBH ALBUMIN GLOBULIN RATIO 0.8 TBH 09/23/2024 9:36 AM EDT 09/23/2024 9:38 AM EDT Narrative [facility] - 09/23/2024 10:12 AM EDT Generic External Data Provider [facility] F inal Result [facility] TB * (ABNORMAL) ALL CBC WITH AUTO DIFF (09/23/2024 9:36 AM EDT) TBH WBC 3.3(L) 4.0 - 11.0 10 3/uL TBH TBH RBC 4.04(L) 4.70 - 6.10 10 6/uL TBH TBH HGB 12.6(L) 14.0 - 18.0 g/dL TBH TBH HCT 37.5(L) 42.0 - 54.0 % TBH TBH MCV 92.8 80.0 - 94.0 fL TBH TBH MCH 31.2 25.9 - 34.0 pg TBH TBH MCHC 33.6 29.9 - 35.2 g/dL TBH TBH RDW 13.8 11.0 - 15.0 % TBH TBH PLT 65(L) 150 - 450 10 3/uL TBH TBH MPV 10.6 9.5 - 13.5 fL TBH 09/23/2024 9:36 AM EDT 09/23/2024 9:38 AM EDT Narrative [facility] - 09/23/2024 10:31 AM EDT Generic External Data Provider [facility] F inal Result [facility] * (ABNORMAL) Hm Colonoscopy (10/23/2023) Anatomical Region Laterality Modality Other 10/23/2023 Narrative 10/25/2023 9:28 AM EDT Polypectomy Rosanna [facility] Final Resul t from Last 3 Months or Most Recently Relevant to Health Maintenance Insurance MEDICARE [facility] Care Teams Crankshaft Straightener Relationship Specialty Start Date End Date Frantz Conley MD [address] [place] [address] PCP - General Internal Medicine 08/08/22 Frantz Conley MD [address] [place] [address] PCP - ACO Reach 08/16/22
--- OUTSIDE RECORDS SUMMARY | 2024-10-01 08:13 | XMS_ITS | Clinical Summary ---
Author Organization [facility] Address [address] [place] [address] Phone Care Team Providers Care Book Mender Name Role Phone Frantz Conley MD Primary Care Provider [phone] Allergies No known active allergies Medications clopidogrel (Plavix) 75 mg tablet Take 1 tablet (75 mg) by mouth once daily. 04/05/2023 Active fish oil concentrate ([place]-3) 120-180 mg capsule Take 1 capsule (1,000 mg) by mouth once daily. Active multivitamin with minerals tablet Take 1 tablet by mouth once daily. Active omeprazole (PriLOSEC) [address] capsule Take 1 capsule (40 mg) by mouth 2 times a day. 01/09/2023 Active levothyroxine (Synthroid, Levoxyl) 88 mcg tablet Take 1 tablet (88 mcg) by mouth once daily in the morning. Take before meals. Take on an empty stomach. 05/14/2023 Active tiZANidine (Zanaflex) 4 mg tablet 1 tablet (4 mg) as needed at bedtime. 04/18/2023 Active atorvastatin (Lipitor) 20 mg tablet Take 1 tablet (20 mg) by mouth once daily. 02/21/2023 Active carvedilol (Coreg) 3.125 mg tablet Take 1 tablet (3.125 mg) by mouth 2 times a day. Active Active Problems Problem Noted Date Diagnosed Date BMI 30.0-30.9,adult 09/08/2024 BMI 29.0-29.9,adult 01/01/2024 Former cigarette smoker 06/20/2023 ASHD (arteriosclerotic heart disease) 06/20/2023 History of coronary artery stent placement 06/19 Ascending aorta dilation 06/20/2023 Iron deficiency anemia 06/20/2023 PVC (premature ventricular contraction) 06/20/19 24 Encounters Date Type Department Care Team Description 09/08/2024 3:00 PM EDT Office Visit [facility] [address] [facility] [address] [place] [address] Crescencio Marin DO ASHD (arteriosclerotic heart disease); History of coronary artery stent placement; PVC (premature ventricular contraction); BMI 30.0-30.9,adult; Former cigarette smoker; Hyperlipidemia, unspecified hyperlipidemia type 09/08/2024 Travel from Last 3 Months Immunizations Immunization Administration Dates Next Due Flu vaccine, quadrivalent, h igh-dose, preservative free, age 65y+ (FLUZONE) 03/12/2024,03/21/2022,01/06/2021 Influenza, Seasonal, Quadriv alent, Adjuvanted 01/04/2023 Pneumococcal polysaccharide vaccine, 23-valent, age 2 years and older (PNEUMOVAX 23) 09/29/2018 Zoster vaccine, recombinant, adult (SHINGRIX) 08/18/2019,04/10/2019 Family History Medical History Relation Name Comments Skin cancer Brother Lung disease Father Liver disease Mother Epilepsy Sister Relation Name Status Comments Brother Father Mother Sister Social History Tobacco Use Types Packs/Day Years [...] Orientation Straight 06/29/2023 10 :10 AM EDT Last Filed Vital Signs Vital Sign Reading Time Taken Comments Blood Pressure 122/68 09/08/2024 2:56 PM EDT Pulse 58 09/08/2024 2:56 PM EDT Temperature - - Respiratory Rate - - Oxygen Saturation - - Inhaled Oxygen Concentration - - Weight 82.6 kg (182 lb) 09/08/2024 2:56 PM EDT Height 165.1 cm (5' 5 ) 09/08/2024 2:56 PM EDT Body Mass Index 30.29 09/08/2024 2:56 PM EDT Plan of Treatment Upcoming Encounters Date Type Department Care Team (Late st Contact Info) Description 09/14/2025 2:00 PM EDT Office Visit [facility] [address] [facility] [address] [place] [address] Crescencio Marin, [address] [facility] [address] [place] [address] Health Maintenance Due Date Last Done Comments Creatinine Level 1945 Medicare Annual Wellness Visit (AWV) 1945 Potassium Level 1945 TSH Level 1946 Diabetes Screening 1964 Hepatitis C Screening 1964 Hepatitis A Vaccines (1 of 2 - Risk 2-dose series) 1965 DTaP/Tdap/Td Vaccines (1 - Tdap) 1968 Hepatitis B Vaccines (1 of 3 - Risk 3-dose series) 2006 Pneumococcal Vaccine (2 of 2 - PCV) 09/30/2019 09/29/2018 RSV High Risk: (Elderly (60+) or Population) (1 - 1-dose 75+ series) 2021 Echocardiogram 11/08/2022 11/08/2021 COVID-19 Vaccine ( - season) 2023 03/01/2021, 05/26/2020, 04/28/2020 Influenza Vaccine (#1) 2024 4, 12/15/2023, 01/04/2023, Additional history exists Lipid Panel 04/29/2028 04/29/2023 Zoster Vaccines Completed 08/18/2019, 04/10/2019 HIB Vaccines Aged Out No longer eligi ble based on patient's age to complete this topic HPV Vaccines (No Doses Required) Completed IPV Vaccines Aged Out No longer eligi ble based on patient's age to complete this topic Meningococcal Vaccine Aged Out No ross chaya eligible based on patient's age to complete this topic Rotavirus Vaccines Aged Out No longer eligible based on patient's age to complete this topic Insurance MEDICARE PART A AND B Member Subscriber Plan / Payer (Ef fective 2011-Present) Name:Pankaj Matthews Member ID:[id number] Relation to Subscriber:Self Name:Pankaj Matthews Subscriber ID:[id number] Payer ID:Not on file Group ID:Not on file Type:Not on file Address: [place] [id number] [employer] Care Teams Book Mender Relationship Specialty Start Date End Date Frantz Conley MD [address] [facility] [address] [place] [address] PCP - General Internal Medicine 06/20/23
--- OUTSIDE RECORDS SUMMARY | 2024-10-01 08:13 | XMS_ITS | Encounter Summary ---
Author Organization [facility] Address [address] [place] [address] Care Team Providers Care Stranding Machine Operator Name Role Phone Frantz Conley MD Primary Care Provider [phone] Frantz Conley MD Unavailable [phone] Jazmin Toribio LIVESTOCK SPECULATOR Unavailable [phone] Dang Bosch SUPERVISOR PAINTING SHIPYARD Unavailable Encounter Details Date Type Department Care Team (Late st Contact Info) Description 04/22/2024 Abstract [facility] [address] [facility] [address] [place] [address] Frantz Conley MD 112 [facility] [address] [place] [address] Social History Tobacco Use Types [...] How often do you attend chur or gnosticist services? More than 4 times per year 04/15/2023 Do you belong to any clubs o r organizations such as caodaism groups, unions, fraternal or athletic groups, or [...] Recorded Patient Health Questionnaire-2 Score 0 10/21/2023 [facility] - Occupational Stress [...] to sleep or slept in a senior care (including now)? No 04/15/2023 Sex and Gender Information Value Date Recorded Sex Assigned at Not on file Legal Sex Male 6:37 PM EDT Gender Identity Not on file Sexual Orientation Not on file documented as of this encounter Plan of Treatment Upcoming Encounters Date Type Department Care Team (Late st Contact Info) Description 10/05/2024 11:00 AM EDT Office Visit [facility] [address] [facility] [address] [place] [phone] Frantz Conley MD [address] [place] [address] 10/20/2024 11:00 AM EDT Office Visit [facility] [address] [place] [phone] Rosanna Bautista PA [address] [place] [address] documented as of this encounter Visit Diagnoses Not on filedocumented in this encounter Additional Health Concerns Assessment Noted Time PHQ-9 Depression Total Score: 0 10/21/19 24 11:00 AM EDT documented as of this encounter Care Teams Stranding Machine Operator Relationship Specialty Start Date End Date Frantz Conley MD [address] [facility] [address] [place] [address] PCP - General Internal Medicine 08/08/22 Frantz Conley MD [address] [facility] [address] [place] [address] PCP - ACO Reach 08/16/22 Jazmin Toribio, BLAYNE [address] [place] [address] Plastic Tubing Insulation Supervisor Family Medicine 08/04/24 08/07/24 Dang Bosch LPN [address] [facility] [address] [place] [address] 08/07/24 08/07/24 documented as of this encounter
--- OUTSIDE RECORDS SUMMARY | 2024-10-01 08:13 | XMS_ITS | Encounter Summary ---
Author Organization [facility] Address [address] [place] [address] Care Team Providers Care Creative Coordinator Name Role Phone Frantz Conley MD Primary Care Provider [phone] Reason for Visit * Reason Comments Med Refill Encounter Details Date Type Department Care Team (Late st Contact Info) Description 04/08/2022 Refill [facility] [address] [place] [phone] Veronika Lanier CNP [address] [facility] [place] [phone] Coronary artery disease, unspecified vessel or lesion type, unspecified whether angina present, unspecified whether deering or transplanted heart Social History Tobacco Use Types Packs/Day Years Used Date Smoking Tobacco: Never Assessed Sex and Gender Information Value Date Recorded Sex Assigned at Not on file Legal Sex Male 12:09 AM EDT Gender Identity Not on file Sexual Orientation Not on file documented as of this encounter Plan of Treatment Not on file documented as of this encounter Visit Diagnoses Diagnosis Coronary artery disease, unspecified vessel or lesion type, unspecified whether angina present, unspecified whether deering or transplanted heart documented in this encounter Care Teams Creative Coordinator Relationship Specialty Start Date End Date Frantz Conley MD PCP - General 09/17/22 documented as of this encounter
--- OUTSIDE RECORDS SUMMARY | 2024-10-01 08:13 | XMS_ITS | Encounter Summary ---
Author Organization [facility] Address [address] [place] [address] Care Team Providers Care Nursing Secretary Name Role Phone Frantz Conley MD Primary Care Provider [phone] Frantz Conley MD Unavailable [phone] Encounter Details Date Type Department Care Team (Late st Contact Info) Description 09/23/2024 Clinisync Result Encounter [facility] External Department Unsolicited Provider, Generic External Data Social History Tobacco Use Types Packs/Day Years [...] often do you attend chur ch or anabaptism services? More than 4 times per year 04/15/2023 Do you belong to any clubs o r organizations such as hoahaoism groups, unions, fraternal or athletic groups, or [...] Recorded Patient Health Questionnaire-2 Score 0 10/21/2023 [facility] ional Health - Occupational Stress [...] place to sleep or slept in a half-way (including now)? No 04/15/2023 Sex and Gender [...] [address] [place] [address] Frantz Conley MD [address] [place] [address] 10/20/2024 11:00 AM EDT Office Visit [facility] [address] [place] [address] Rosanna Bautista PA [address] [place] [address] documented as of this encounter Procedures Procedure Name Priority Date/Time Associated Diagnosis Comments VITAMIN B12 Routine 09/23/2024 9:36 AM EDT MHPT DIFFERENTIAL Routine 09/23/2024 9:3 6 AM EDT [facility] IRON AND TIBC Routine 09/23/2024 9 :36 AM EDT [facility] FERRITIN Routine 09/23/2024 9:36 AM EDT [facility] CMP (CMP) (FOR REMOTE [facility] USE) Routine 09/23/2024 9:36 AM EDT ALL CBC WITH AUTO DIFF Routine 09/23/2024 9:36 AM EDT documented in this encounter Results * VITAMIN B12 (09/23/2024 9:36 AM EDT) Pathologist [facility] VITAMIN B12 1204 232 - 1245 pg/mL [facility] Comment: Performed at: [facility] [id number] Production Inspector: Cahrlie Klein PhD, Phone: [phone] 09/23/2024 9:36 AM EDT 09/23/2024 9:38 AM EDT Narrative CLINIS[facility]NC - 09/24/2024 4:07 AM EDT Generic External Data Provider LAB BLOOD ORDERAB LES Final Result Performing Organization Address City[facility]/ZIP Co de Phone Number [facility] * [facility] FERRITIN (09/23/2024 9:36 AM EDT) [facility] FERRITIN 42.0 26.0 - 388.0 ng/mL [facility] 09/23/2024 9:36 AM EDT 09/23/2024 9:38 AM EDT Narrative CLINISYNC - 09/23/2024 10:42 AM EDT Generic External Data Provider [facility] F inal Result [facility] * (ABNORMAL) MHPT DIFFERENTIAL (09/23/2024 9:36 AM EDT) [facility] SEGMENTED NEUTROPHILS % MANUAL 66.0 43.0 - [...] CLINISYNC F inal Result Performing Organization Address City[facility]/ZIP Co de Phone Number [facility]NC TB * (ABNORMAL) [facility] IRON AND TIBC (09/23/2024 [...] * (ABNORMAL) [facility] CMP (CMP) (FOR REMOTE [facility] USE) (09/23/2024 9:36 AM EDT) SODIUM 145 136 - 145 mmol/L [facility] POTASSIUM 4.3 3.5 - 5.1 mmol/L [facility] CHLORIDE 110(H) 98 - 107 mmol/L [facility] CARBON DIOXIDE 26.4 21.0 - 32.0 mmol/L [facility] ANION GAP 12.9 [facility] GLUCOSE 112(H) 74 - 106 mg/dL [facility] BLOOD UREA NITROGEN 17.0 7.0 - 18.0 mg/dL [facility] CREATININE 0.83 0.70 - 1.30 mg/dL [facility] TBH EGFR-AF [place] >60 >=60 mL/min/1. 73m 2 TBH TBH EGFR-NON AF [place] >60 >=60 mL/min/1. 73m 2 [facility] BUN [...] Narrative CLINISYNC - 09/23/2024 10:12 AM EDT us Generic External Data Provider CLINISYNC F inal Result [facility] * (ABNORMAL) ALL CBC WITH AUTO DIFF (09/23/2024 9:36 AM EDT) TB WBC 3.3(L) 4.0 - 11.0 10 3/uL [...] Narrative CLINISYNC - 09/23/2024 10:31 AM EDT us Generic External Data Provider CLINISYNC F inal Result [facility] documented in this encounter Visit Diagnoses Not on filedocumented in this encounter Additional Health Concerns Assessment Noted Time PHQ-9 Depression Total Score: 0 10/21/19 24 11:00 AM EDT documented as of this encounter Care Teams Nursing Secretary Relationship Specialty Start Date End Date Frantz Conley MD [address] [facility] [address] [place] [address] PCP - General Internal Medicine 08/08/22 Frantz Conley MD [address] [address] PCP - ACO Reach 08/16/22 documented as of this encounter
--- OUTSIDE RECORDS SUMMARY | 2024-10-01 08:13 | XMS_ITS | Encounter Summary ---
Author Organization [facility] Address [address] [place] [address] Care Team Providers Care Tabulating Clerk Name Role Phone Frantz Conley MD Primary Care Provider [phone] Frantz Conley MD Unavailable [phone] Jazmin Toribio PRODUCE LABORER Unavailable [phone] Dang Bosch LPN Unavailable Encounter Details Date Type Department Care Team (Late st Contact Info) Description 05/25/2024 Abstract [facility] 112 [facility] 110 [place] [address] Frantz Conley MD 112 [facility] 110 [place] [address] Social History Tobacco Use Types [...] How often do you attend chur or nondenominational services? More than 4 times per year 04/15/2023 Do you belong to any clubs o r organizations such as religious groups, unions, fraternal or athletic groups, or [...] Recorded Patient Health Questionnaire-2 Score 0 10/21/2023 [facility] Occupat ional Health - Occupational [...] place to sleep or slept in a fci (including now)? No 04/15/2023 Sex and Gender Information Value Date Recorded Sex Assigned at Not on file Legal Sex Male 6:37 PM EDT Gender Identity Not on file Sexual Orientation Not on file documented as of this encounter Plan of Treatment Upcoming Encounters Date Type Department Care Team (Late st Contact Info) Description 10/05/2024 11:00 AM EDT Office Visit [facility] [address] [facility] [address] [place] [phone] Frantz Conley MD [address] [place] [address] 10/20/2024 11:00 AM EDT Office Visit [facility] [address] [place] [address] Rosanna Bautista PA [address] [place] [address] documented as of this encounter Visit Diagnoses Not on filedocumented in this encounter Additional Health Concerns Assessment Noted Time PHQ-9 Depression Total Score: 0 10/21/19 24 11:00 AM EDT documented as of this encounter Care Teams Tabulating Clerk Relationship Specialty Start Date End Date Frantz Conley MD [address] [place] [address] PCP - General Internal Medicine 08/08/22 Frantz Conley MD [address] [place] [address] PCP - ACO Reach 08/16/22 Jazmin Toribio, BLAYNE [address] [place] [address] Strategic Debriefing Officer Family Medicine 08/04/24 08/07/24 Dang Bosch LPN [address] [place] [address] 08/07/24 08/07/24 documented as of this encounter
--- OUTSIDE RECORDS SUMMARY | 2024-10-01 08:13 | XMS_ITS | Patient Health Record ---
Author Organization [facility] in [place] Address [address] [place] [address] Care Team Providers Care Car Greaser Name Role Phone Frantz Conley MD Primary Care Provider Unavailab Dior Bar Unavailable [phone] Results Component Value Reference Range Notes t-Transglutaminase (tTG) IgA (Not yet reviewed by provider) Interpretation: Performing Lab: Notes/Report: [facility] , t-Transglutaminase (tTG) IgA <2 0-3 U/mL Negative 0 - 3 Weak Positive 4 - 10 Positive >10 Tissue Transglutaminase (tTG) has been identified as the endomysial antigen. Studies have demonstr- ated that endomysial IgA antibodies have over 99% specificity for gluten sensitive enteropathy. Performed at: - [facility] [id number] Supervisor Shipping Room: Charlie Klein PhD, Phone: [phone] Performing Lab: see note - [facility] LB CBC AUTO DIFF (Not yet revie wed by provider) Interpretation: Performing Lab: Notes/Report: [facility] , White Blood Count 3.1 4.0-11.0 10 3/uL Red Blood Count 4.14 4.70-6.10 10 6/uL Hemoglobin 12.2 14.0-18.0 g/dL Hematocrit 38.3 42.0-54.0 % Mean Corpuscular Volume 92.5 80.0-94.0 fL Mean Corpuscular Hemoglobin 29.5 25.9-34.0 pg Mean Corpuscular HGB Conc 31.9 29.9-35.2 g/dL Red Cell Distribution Width 18.3 11.0-15.0 % Platelet Count 63 150-450 10 3/uL Mean Platelet Volume 11.1 9.5-13.5 fL Performing Lab: see note ML - [facility] LB Manual Differential (Not yet reviewed by provider) Interpretation: Performing Lab: Notes/Report: [facility] , Segmented Neutrophils % Manual 61.0 43.0-75.0 Lymphocytes Percent Manual 24.0 20.5-60.0 % Monocytes Percent Manual 11.0 1.7-12.0 % Eosinophils Percent Manual 3.0 0.9-7.0 % Basophils Percent Manual 1.0 0.2-2.0 % Segmented Neut Absolute Manual 1.89 1.4-6.5 10 3/uL Lymphocytes Absolute Manual 0.74 1.20-3.80 10 3/uL Monocytes Absolute Manual 0.34 0.30-0.80 10 3/ uL Eosinophils Absolute Manual 0.09 0.00-0.70 10 3/uL Basophils Abs Manual 0.03 0.00-0.10 10 3/uL Performing Lab: see note ML - [facility] LB CBC AUTO DIFF (Not yet revie wed by provider) Interpretation: Performing Lab: Notes/Report: [facility] , White Blood Count 3.3 4.0-11.0 10 3/uL Red Blood Count 4.04 4.70-6.10 10 6/uL Hemoglobin 12.6 14.0-18.0 g/dL Hematocrit 37.5 42.0-54.0 % Mean Corpuscular Volume 92.8 80.0-94.0 fL Mean Corpuscular Hemoglobin 31.2 25.9-34.0 pg Mean Corpuscular HGB Conc 33.6 29.9-35.2 g/dL Red Cell Distribution Width 13.8 11.0-15.0 % Platelet Count 65 150-450 10 3/uL Mean Platelet Volume 10.6 9.5-13.5 fL Performing Lab: see note ML - [facility] LB FERRITIN (Not yet reviewed b y provider) Interpretation: Performing Lab: Notes/Report: [facility] , Ferritin 42.0 26.0-388.0 ng/mL Performing Lab: see note ML - [facility] LB IRON AND TIBC (Not yet revie wed by provider) Interpretation: Performing Lab: Notes/Report: [facility] , Iron 51.0 65.0-175.0 ug/dL Total Iron Binding Capacity 361.0 250.0-450.0 u g/dL Percent Iron Saturation 14.1 Performing Lab: see note ML - [facility] LB PROF 14(COMP METB) (Not yet reviewed by provider) Interpretation: Performing Lab: Notes/Report: [facility] , Sodium 145 136-145 mmol/L Potassium 4.3 3.5-5.1 mmol/L Chloride 110 98-107 mmol/L Carbon Dioxide 26.4 21.0-32.0 mmol/L Anion Gap 12.9 Glucose 112 74-106 mg/dL Blood Urea Nitrogen 17.0 7.0-18.0 mg/dL Creatinine 0.83 0.70-1.30 mg/dL Estimated GFR ( Oumou >60 >=60 mL/min/1.73m 2 Estimated GFR (Non- Rosie >60 >=60 mL/min/1.73m 2 BUN Creatinine Ratio 20.5 Calcium 8.9 8.5-10.1 mg/dL Bilirubin Total 0.7 0.2-1.0 mg/dL Aspartate Amino Transferase 53 15-37 U/L Alanine Aminotransferase 50 16-63 U/L Alkaline Phosphatase 115 46-116 U/L Total Protein 6.4 6.4-8.2 g/dL Albumin Level 2.9 3.4-5.0 g/dL Globulin 3.5 Albumin Globulin Ratio 0.8 Performing Lab: see note ML - [facility] LB Manual Differential (Not yet reviewed by provider) Interpretation: Performing Lab: Notes/Report: [facility] , Segmented Neutrophils % Manual 66.0 43.0-75.0 Lymphocytes Percent Manual 17.0 20.5-60.0 % Monocytes Percent Manual 12.0 1.7-12.0 % Eosinophils Percent Manual 4.0 0.9-7.0 % Basophils Percent Manual 0.0 0.2-2.0 % Metamyelocytes % 1.0 Segmented Neut Absolute Manual 2.17 1.4-6.5 10 3/uL Lymphocytes Absolute Manual 0.56 1.20-3.80 10 3/uL Monocytes Absolute Manual 0.39 0.30-0.80 10 3/ uL Eosinophils Absolute Manual 0.13 0.00-0.70 10 3/uL Basophils Abs Manual 0.00 0.00-0.10 10 3/uL Metamyelocytes Absolute Manual 0.03 Performing Lab: see note - [facility] LB Vitamin B12 (Not yet reviewe d by provider) Interpretation: Performing Lab: Notes/Report: [facility] , Vitamin B12 9985 918-4760 pg/mL Performed at: [facility] [address] [id number] Supervisor Shipping Room: Charlie Klein PhD, Phone: [phone] Performing Lab: see note [facility] Vitamin B12 (Not yet reviewe d by provider) Interpretation: Performing Lab: Notes/Report: [facility] , Vitamin B12 382 779-2404 pg/mL Performed at: [facility] [address] [id number] Supervisor Shipping Room: Charlie Klein PhD, Phone: [phone] Performing Lab: see note [facility] Manual Differential (Not yet reviewed by provider) Interpretation: Performing Lab: Notes/Report: [facility] , Segmented Neutrophils % Manual 70.0 43.0-75.0 Band Neutrophils % 2.0 0-5 % Lymphocytes Percent Manual 18.0 20.5-60.0 % Monocytes Percent Manual 8.0 1.7-12.0 % Eosinophils Percent Manual 2.0 0.9-7.0 % Basophils Percent Manual 0.0 0.2-2.0 % Segmented Neut Absolute Manual 3.43 1.4-6.5 10 3/uL Band Neutrophils Absolute 0.1 0.0-0.3 10 3/uL Lymphocytes Absolute Manual 0.88 1.20-3.80 10 3/uL Monocytes Absolute Manual 0.39 0.30-0.80 10 3/ uL Eosinophils Absolute Manual 0.09 0.00-0.70 10 3/uL Basophils Abs Manual 0.00 0.00-0.10 10 3/uL Performing Lab: see note - [facility] LB VITAMIN D 25 [place] (Not yet rev iewed by provider) Interpretation: Performing Lab: Notes/Report: [facility] , Vitamin D 41.7 <20 ng/mL Vit D deficient 20-<30 ng/mL Vit D insufficient 30-100 ng/mL Vit D sufficient >100 ng/mL Potential Toxicity Performing Lab: see note ML - [facility] LB PROF 14(COMP METB) (Not yet reviewed by provider) Interpretation: Performing Lab: Notes/Report: [facility] , Sodium 141 136-145 mmol/L Potassium 4.3 3.5-5.1 mmol/L Chloride 109 98-107 mmol/L Carbon Dioxide 26.0 21.0-32.0 mmol/L Anion Gap 10.3 Glucose 106 74-106 mg/dL Blood Urea Nitrogen 25.0 7.0-18.0 mg/dL Creatinine 1.08 0.70-1.30 mg/dL Estimated GFR ( Oumou >60 >=60 mL/min/1.73m 2 Estimated GFR (Non- Rosie >60 >=60 mL/min/1.73m 2 BUN Creatinine Ratio 23.1 Calcium 8.5 8.5-10.1 mg/dL Bilirubin Total 0.7 0.2-1.0 mg/dL Aspartate Amino Transferase 56 15-37 U/L Alanine Aminotransferase 55 16-63 U/L Alkaline Phosphatase 135 46-116 U/L Total Protein 6.7 6.4-8.2 g/dL Albumin Level 3.0 3.4-5.0 g/dL Globulin 3.7 Albumin Globulin Ratio 0.8 Performing Lab: see note ML - [facility] LB IRON AND TIBC (Not yet revie wed by provider) Interpretation: Performing Lab: Notes/Report: [facility] , Iron 125.0 65.0-175.0 ug/dL Total Iron Binding Capacity 409.0 250.0-450.0 u g/dL Percent Iron Saturation 30.6 Performing Lab: see note ML - [facility] LB FERRITIN (Not yet reviewed b y provider) Interpretation: Performing Lab: Notes/Report: [facility] , Ferritin 32.0 26.0-388.0 ng/mL Performing Lab: see note ML - [facility] LB CBC AUTO DIFF (Not yet revie wed by provider) Interpretation: Performing Lab: Notes/Report: [facility] , White Blood Count 4.9 4.0-11.0 10 3/uL Red Blood Count 4.12 4.70-6.10 10 6/uL Hemoglobin 13.0 14.0-18.0 g/dL Hematocrit 40.0 42.0-54.0 % Mean Corpuscular Volume 97.1 80.0-94.0 fL Mean Corpuscular Hemoglobin 31.6 25.9-34.0 pg Mean Corpuscular HGB Conc 32.5 29.9-35.2 g/dL Red Cell Distribution Width 13.6 11.0-15.0 % Platelet Count 84 150-450 10 3/uL Mean Platelet Volume 11.1 9.5-13.5 fL Performing Lab: see note ML - [facility] LB IRON AND TIBC (Not yet revie wed by provider) Interpretation: Performing Lab: Notes/Report: [facility] , Iron 83.0 65.0-175.0 ug/dL Total Iron Binding Capacity 280.0 250.0-450.0 u g/dL Percent Iron Saturation 29.6 Performing Lab: see note - [facility] LB FERRITIN (Not yet reviewed b y provider) Interpretation: Performing Lab: Notes/Report: [facility] , Ferritin 118.0 26.0-388.0 ng/mL Performing Lab: see note ML - [facility] LB Reason For Referral No Information Problems Problem Type SNOMED Code ICD Code Onset Dates Problem Status W/U Status Risk Notes Problem Gastroesophageal reflux disease (750067323) GERD (gastroesophageal reflux disease) (K21.9) Active confirmed Problem Anemia (810526163) Anemia (D64.9) Active confir med Problem Thrombocytopenia (447094744) Thrombocytopenia (D69.6) Active confirmed Problem Leukopenia (52653593) Leukopenia (D72.819) Active confirmed 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 Encounters Encounter Location Date Provider Diagnosis [facility] [address] [place] [address] [facility] [address] [place] [facility] [place] [address] 04/21/2024 Dior Reciowla [facility] [address] [place] [address] 10/08[facility]20[facility] [address] [place] [address] 12/10/2023 Dior Sevilla Plan Of Treatment Pending Test Test Name Order Date CBC AUTO DIFF 06/28/2023 CBC AUTO DIFF 12/05/2023 CBC AUTO DIFF 04/21/2024 CBC AUTO DIFF 09/23/2024 FERRITIN 04/21/2024 FERRITIN 12/05/2023 FERRITIN 06/28/2023 FERRITIN 09/23/2024 IRON AND TIBC 09/23/2024 IRON AND TIBC 06/28/2023 IRON AND TIBC 12/05/2023 IRON AND TIBC 04/21/2024 PROF 14(COMP METB) 04/21/2024 PROF 14(COMP METB) 09/23/2024 VITAMIN D 25 [place] 04/21/2024 Manual Differential 04/21/2024 Manual Differential 12/05/2023 Manual Differential 09/23/2024 Vitamin B12 09/23/2024 Vitamin B12 04/21/2024 t-Transglutaminase (tTG) IgA 10/17/2023 Next Appt Details Provider Name:Dior Sevilla , 12/08/2024 03:00:00 PM, [address] [place], [address], Insurance Providers Payer Name Payer Address Payer Phone Subscriber Number Group Number Insured Name Patient Relationship to Insured Coverage Start Date Coverage End Date [place] [address] [place] [address] [id number] Octavio betancourt Pankaj Self - patient is the insured [facility] [address] [place] [address] [id number] Octavio betancourt, Pankaj Self - patient is the insured
--- OUTSIDE RECORDS SUMMARY | 2024-10-01 08:13 | XMS_ITS | Encounter Summary ---
Author Organization [facility] Address [address] [place] [address] Care Team Providers Care Woodworking Machinist Name Role Phone Frantz Conley MD Primary Care Provider [phone] Frantz Conley MD Unavailable [phone] Jazmin Toribio FIRE SPRINKLER SERVICE TECHNICIAN Unavailable [phone] Dang Bosch LPN Unavailable Encounter Details Date Type Department Care Team (Late st Contact Info) Description 01/01/2024 Abstract [facility] 110 [place] [address] Frantz Conley MD 112 [facility] 110 [place] [address] Social History Tobacco Use Types [...] How often do you attend chur or yazdanism services? More than 4 times per year 04/15/2023 Do you belong to any clubs o r organizations such as hinduism groups, unions, fraternal or athletic groups, or [...] Patient Health Questionnaire-2 Score 0 10/21/2023 [facility] - Occupational [...] place to sleep or slept in a mcc (including now)? No 04/15/2023 Sex and Gender Information Value Date Recorded Sex Assigned at Not on file Legal Sex Male 6:37 PM EDT Gender Identity Not on file Sexual Orientation Not on file documented as of this encounter Plan of Treatment Upcoming Encounters Date Type Department Care Team (Late st Contact Info) Description 10/05/2024 11:00 AM EDT Office Visit [facility] [address] [facility] [address] [place] [id number] Frantz Conley MD [address] [place] [address] 10/20/2024 11:00 AM EDT Office Visit [facility] [address] [place] [address] Rosanna Bautista PA [address] [place] [address] documented as of this encounter Visit Diagnoses Not on filedocumented in this encounter Additional Health Concerns Assessment Noted Time PHQ-9 Depression Total Score: 0 10/21/19 24 11:00 AM EDT documented as of this encounter Care Teams Woodworking Machinist Relationship Specialty Start Date End Date Frantz Conley MD [address] [facility] 110 [place] [address] PCP - General Internal Medicine 08/08/22 Frantz Conley MD [address] [facility] [address] [place] [address] PCP - ACO Reach 08/16/22 Jazmin Toribio, BLAYNE [address] [place] [address] Mechanical Technician Family Medicine 08/04/24 08/07/24 Dang Bosch LPN [address] [facility] [address] [place] [address] 08/07/24 08/07/24 documented as of this encounter
--- OUTSIDE RECORDS SUMMARY | 2024-10-01 08:13 | XMS_ITS | Encounter Summary ---
Author Organization [facility] Address [address] [place] [address] Phone Care Team Providers Care Barrel Rifler Operator Name Role Phone Frantz Conley MD Primary Care Provider [phone] Encounter Details Date Type Department Care Team (Late st Contact Info) Description 04/30/2024 Scanned Document [facility] [address] [place] [id number] Scanning, Generic Provider Social History Tobacco Use [...] Description 09/14/2025 2:00 PM EDT Office Visit [place] [id number] [address] [place] [address] Crescencio Marin DO [address] [facility] 2, [address] [place], [place] [id number] documented as of this encounter Visit Diagnoses Not on filedocumented in this encounter Additional Health Concerns Assessment Noted Time A fall risk assessment has been complete d for the patient 06/20/2023 10:03 AM EDT documented as of this encounter Care Teams Barrel Rifler Operator Relationship Specialty Start Date End Date Frantz Conley MD [address] [address] PCP - General Internal Medicine 06/20/23 documented as of this encounter
--- OUTSIDE RECORDS SUMMARY | 2024-10-01 08:13 | XMS_ITS | Clinical Summary ---
Author Organization [facility] Address [address] [place] [address] Care Team Providers Care Cutter In Name Role Phone Frantz Conley MD Primary Care Provider Medications aspirin 81 mg chewable tablet Chew 81 mg. Ac tive fish oil concentrate (Fleming-3) 120-180 mg capsule Take 1,000 mg by mouth. Active levothyroxine (Synthroid, Levoxyl) 100 mcg tablet levothyroxine 100 mcg tablet Active tiZANidine (Zanaflex) 4 mg tablet tizanidine 4 mg tablet Active meclizine (Antivert) 25 mg tablet Take 25 mg by mouth if needed in the morning, at noon, and at bedtime for dizziness. 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 Benign essential HTN 09/17/2022 Assessment & Plan (09/17/2022 9:44 AM EDT): Hypertension is well controlled Continue lifestyle modifications- low sodium diet, heart healthy diet and regular activity. 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), w CHF 09/17/2022 Assessment & Plan (09/17/2022 9:43 AM EDT): HTN is well controlled F/U with PCP for monitoring of renal function Dilatation of aorta 09/17/2022 Overview (09/17/2022): Mild aortic dilation on echo 2019 Assessment & Plan (09/17/2022 9:41 AM EDT): Mild dilatation on last echo- will repeat echo at 1 year- Oct-Nov Encounters Date Type Department Care Team Description 07/09/2024 [facility] [address] [place] [phone] Karl Menon MD Coronary artery disease, unspecified vessel or lesion type, unspecified whether angina present, unspecified whether cowlitz or transplanted heart from Last 3 Months Social History Tobacco Use Types Packs/Day Years Used Date Smoking Tobacco: Never Smokeless Tobacco: Never Tobacco Cessation:Counseling Given: Not Answered [place] Safety & Environment Answer Date Rec orded Fear of Current or Ex-Partner Not on file Emotionally Abused Not on file 05/16/2023 Physically Abused Not on file 05/16/2023 Sexually Abused Not on file 05/16/2023 Physically or Sexually Abused Not on file Sex and Gender Information Value Date Recorded Sex Assigned at Not on file Legal Sex Male 12:09 AM EDT Gender Identity Not on file Sexual Orientation Not on file Last Filed Vital Signs Vital Sign Reading Time Taken Comments Blood Pressure 113/70 09/17/2022 9:13 AM EDT Pulse 58 09/17/2022 9:13 AM EDT Temperature - - Respiratory Rate - - Oxygen Saturation 97% 09/17/2022 9:13 AM EDT Inhaled Oxygen Concentration - - Weight 80.7 kg (178 lb) 09/17/2022 9:13 AM EDT Height 165.1 cm (5' 5 ) 10/30/2021 10:30 AM EDT Body Mass Index 29.62 10/30/2021 10:30 AM EDT Plan of Treatment Health Maintenance Due Date Last Done Comments Medicare Annual Wellness (AWV) 1945 Depression Screening 1958 Adult Tetanus 1968 Fall Risk Screening 07/31/2011 Pneumococcal Vaccine: 50+ Years (2 of 2 - PCV) 09/30/2019 09/29/2018 COVID-19 Vaccine ( season) 2023 03/01/2021, 05/26/2020, 04/28/2020 Influenza Vaccine (#1) 2024 , 03/21/2022, 01/06/2021, Additional history exists Zoster Vaccines Completed 08/18/2019, 04/10/2019 HIB Vaccines Aged Out No longer eligi ble based on patient's age to complete this topic HPV Vaccines Aged Out No longer eligi ble based on patient's age to complete this topic IPV Vaccines Aged Out No longer eligi ble based on patient's age to complete this topic Meningococcal B Vaccine Aged Out No l onger eligible based on patient's age to complete this topic Meningococcal Vaccine Aged Out No ross chaya eligible based on patient's age to complete this topic Rotavirus Vaccines Aged Out No longer eligible based on patient's age to complete this topic Insurance MEDICARE Member Subscriber Plan / Payer (Ef fective 2011-Present) Name:Pankaj Matthews Member ID:[id number] Relation to Subscriber:Self Name:Pankaj Matthews Subscriber ID:[id number] Payer ID:[id number] Group ID:Not on file Type:Medicare Address: [address] [id number] Care Teams Cutter In Relationship Specialty Start Date End Date Frantz Conley MD PCP - General 09/17/22
--- OUTSIDE RECORDS SUMMARY | 2024-10-01 08:13 | XMS_ITS | Encounter Summary ---
Author Organization [facility] Address [address] [place] [address] Phone Care Team Providers Care Financial Services Officer Name Role Phone Frantz Conley MD Primary Care Provider [phone] Encounter Details Date Type Department Care Team (Late st Contact Info) Description 06/10/2023 Scanned Document [facility] [address] [place] [phone] Scanning, Generic Provider Social History Tobacco Use [...] Description 09/14/2025 2:00 PM EDT Office Visit [facility] [address] [place] [address] Crescencio Marin DO [address] [place] [address] documented as of this encounter Visit Diagnoses Not on filedocumented in this encounter Care Teams Financial Services Officer Relationship Specialty Start Date End Date Frantz Conley MD [address] [facility] 110 [place] [address] PCP - General Internal Medicine 06/20/23 documented as of this encounter
--- OUTSIDE RECORDS SUMMARY | 2024-10-01 08:14 | XMS_ITS | Encounter Summary ---
Author Organization [facility] Address [address] [place] [address] Care Team Providers Care Deputy Director Of Finance Name Role Phone Frantz Conley MD Primary Care Provider [phone] Frantz Conley MD Unavailable [phone] Jazmin Toribio ORTHOTICS TECHNICIAN Unavailable [phone] Dang Bosch SHUTTLE SPOTTER Unavailable Encounter Details Date Type Department Care Team (Late st Contact Info) Description 12/07/2022 Clinisync Result Encounter [facility] External Department Unsolicited Provider, Generic External Data Social History Tobacco Use Types Packs/Day Years Used Date Smoking Tobacco: Never Smokeless Tobacco: Never Alcohol Use Standard Drinks/Week Comments Not Currently 0 (1 standard drink = 0.6 oz pure alcohol) caffeine intake: 1-2 cups per day. PHQ-2 Answer Date Recorded Patient Health Questionnaire-2 Score 0 08/22/2022 Sex and Gender Information Value Date Recorded Sex Assigned at Not on file Legal Sex Male 6:37 PM EDT Gender Identity Not on file Sexual Orientation Not on file documented as of this encounter Plan of Treatment Upcoming Encounters Date Type Department Care Team (Late Contact Info) Description 10/05/2024 11:00 AM EDT Office Visit [facility] 112 [facility] 110 [place] [address] Frantz Conley MD 112 [facility] 110 [place] [address] 10/20/2024 11:00 AM EDT Office Visit [facility] 112 [facility] 110 [place] [phone] Rosanna Bautista PA 112 [facility] 110 [place] [address] documented as of this encounter Procedures Procedure Name Priority Date/Time Associated Diagnosis Comments CA ECHO DOPPLER COMPLETE 12/07/2022 6:29 PM EDT documented in this encounter Results * CA ECHO DOPPLER COMPLETE (12/07/2022 6:29 PM EDT) Anatomical Region Laterality Modality Other 12/07/2022 6:29 PM EDT Narrative 12/07/2022 6:29 [place] [address] Cardiology Report Signed Patient: AJ PAYNE MR#: [id number] : 1945 Acct:[id number] Age/Sex: 77 / M ADM Date: 12/07/22 Loc: CARD Attending Dr: HILLARY MURPHY Ordering Physician: HILLARY MURPHY Date of Service: 12/07/22 Procedure(s): CA echo doppler complete Accession Number(s): [id number] cc: Patient: AJ PAYNE. Exam Date: 12/07/2022 : 1945 Gender:M Ordering : HILLARY MURPHY Admission #: [id number] Family : Order #: [id number] CLICK HERE TO VIEW EXAM ECHOCARDIOGRAM REPORT PROCEDURE: CA ECHO DOPPLER COMPLETE INDICATIONS: CAD, HTN, Dilatation of aorta COMPARISON: None. DESCRIPTION: COMPLETE ECHOCARDIOGRAM Real-time transthoracic echocardiography with 2D, M-mode, spectral and color flow Doppler performed. QUALITY: Technical quality was good. LEFT VENTRICLE: Normal chamber size. Moderate concentric left ventricular hypertrophy. Global left ventricular systolic function is normal. LV EF: Estimated left ventricular ejection fraction is 60-65% DIASTOLIC: Grade 2 diastolic dysfunction. ATRIAL SEPTUM: LEFT ATRIUM: Moderate dilatation. RIGHT ATRIUM: Moderate dilatation. RIGHT VENTRICLE: Mildly dilated. Normal right ventricular systolic function. TRICUSPID VALVE: Normal mobility and thickness. No stenosis with mild regurgitation. Mild pulmonary hypertension. RVSP 41 mmHg MITRAL VALVE: Normal mobility and thickness. No evidence of mitral valve stenosis. Mild mitral annular calcification. Trivial mitral regurgitation. AORTIC VALVE: Normal trileaflet appearance. Mildly calcified aortic valve. Normal leaflet mobility. No evidence of aortic valve stenosis. No aortic regurgitation. AORTIC ROOT: Mildly dilated aortic root measuring 3.8 cm. Normal size ascending aorta measuring 3.6 cm. PULMONIC VALVE: Normal thickness and mobility. No stenosis. Trivial regurgitation. PERICARDIUM: No evidence of pericardial effusion. IVC: Not well visualized. PLEURA: CONCLUSION: 1. Moderate concentric left ventricular hypertrophy with normal systolic function. LVEF is 60 to 65%. 2. Mildly dilated right ventricle with normal systolic function. 3. Grade 2 diastolic dysfunction. 4. Moderate biatrial dilatation. 5. Mild tricuspid regurgitation. 6. Mildly elevated right-sided pressures. 7. Mildly dilated aortic root with normal size ascending aorta. Adult Echocardiography Procedure Report Left Ventricle LVEDD (3.7 - 5.6 cm): 4.00 cm LVESD (2.2 - 4.0 cm): 2.66 cm LVIVS thickness (0.6 - 1.2 cm): 1.29 cm LVPW thickness (0.5 - 1.0 cm): 1.73 cm e': 0.09 m/s E - e': 9.18 LVOT Max Gradient: 2.91 mm[Hg] LVOT Area (cm2): 0.85 m/s Peak Velocity (LVOT): 0.85 m/s Mean Velocity (LVOT): 0.60 m/s LVOT Diameter 2.18 cm Left Ventricular Ejection Fraction: 67.18 % Left Atrium LA Volume Index (2D A2C): 45.07 ml/m2 Left Atrium Systolic Dimension: 4.17 cm Mitral Valve MV E to A Ratio: 1.06 Mitral Valve A-Wave Peak Velocity: 0.80 m/s Mitral Valve E-Wave Peak Velocity: 0.85 m/s Right Ventricle RV Internal Diastolic Dimension: 3.19 cm Aorta AO Root Diam: 3.77 cm Ascending Ao Diam: 3.64 cm Aortic Valve AoV Area (Peak Cesario): 1.42 cm2, 1.42 cm2 AoV Area (VTI): 1.69 cm2, 1.69 cm2 Peak Velocity(Antegrade Flow): 2.25 m/s Peak Gradient(Antegrade Flow): 20.20 mm[Hg] Mean Velocity(Antegrade Flow): 1.43 m/s Mean Gradient(Antegrade Flow): 9.75 mm[Hg] Velocity Time Integral: 43.86 cm Tricuspid Valve Peak Velocity (Regurgitant Flow): 2.80 m/s, 3.06 m/s Pulmonic Valve Mean Gradient: 5.64 mm[Hg], 3.62 mm[Hg] Mean Velocity: 1.13 m/s, 0.90 m/s Peak Velocity: 1.43 m/s Peak Gradient: 10.40 mm[Hg], 6.33 mm[Hg] Right Atrium Right Atrium Systolic Pressure: 36.36 ml, 36.36 ml Dictated by: Lucia Griffith M.D. on 12/07/2022 at 18:21 Approved by: Lucia Griffith M.D. on 12/07/2022 at 18:29 Dictated By: LUCIA GRIFFITH Signed By: 12/07/221829 DD/ 28 TD/TT: Bridge Builder: Procedure Note Radiology, Radiologist, MD - 12/13/2022 [place] [address] Cardiology Report Signed Patient: AJ PAYNE AMR#: [id number] : 1945cct:[id number] Age/Sex: 77 / MADM Date: 12/07/22 Loc: CARD Attending Dr: HILLARY UMRPHY Ordering Physician: HILLARY MURPHY Date of Service: 12/07/22 Procedure(s): CA echo doppler complete Accession Number(s): [id number] cc: Patient: AJ PAYNE Exam Date: 12/07/2022 : 1945 Gender:M Ordering : HILLARY MURPHY Admission #: [id number] Family : Order #: [id number] CLICK HERE TO VIEW EXAM ECHOCARDIOGRAM REPORT PROCEDURE: CA ECHO DOPPLER COMPLETE INDICATIONS: CAD, HTN, Dilatation of aorta COMPARISON: None. DESCRIPTION: COMPLETE ECHOCARDIOGRAM Real-time transthoracic echocardiography with 2D, M-mode, spectral and color flow Dopplerperformed. QUALITY: Technical quality was good. LEFT VENTRICLE: Normal chamber size. Moderate concentric leftventricular hypertrophy. Global left ventricular systolic function is normal. LV EF: Estimated left ventricular ejection fraction is 60-65% DIASTOLIC: Grade 2 diastolic dysfunction. ATRIAL SEPTUM: LEFT ATRIUM: Moderate dilatation. RIGHT ATRIUM: Moderate dilatation. RIGHT VENTRICLE: Mildly dilated. Normal right ventricular systolic function. TRICUSPID VALVE: Normal mobility and thickness. No stenosis with mild regurgitation. Mild pulmonary hypertension. RVSP 41 mmHg MITRAL VALVE: Normal mobility and thickness. No evidence of mitralvalve stenosis. Mild mitral annular calcification. Trivial mitralregurgitation. AORTIC VALVE: Normal trileaflet appearance. Mildly calcified aorticvalve. Normal leaflet mobility. No evidence of aortic valve stenosis. No aortic regurgitation. AORTIC ROOT: Mildly dilated aortic root measuring 3.8 cm. Normal size ascending aorta measuring 3.6 cm. PULMONIC VALVE: Normal thickness and mobility. No stenosis. Trivial regurgitation. PERICARDIUM: No evidence of pericardial effusion. IVC: Not well visualized. PLEURA: CONCLUSION: 1. Moderate concentric left ventricular hypertrophy with normal systolic function. LVEF is 60 to 65%. 2. Mildly dilated right ventricle with normal systolic function. 3. Grade 2 diastolic dysfunction. 4. Moderate biatrial dilatation. 5. Mild tricuspid regurgitation. 6. Mildly elevated right-sided pressures. 7. Mildly dilated aortic root with normal size ascending aorta. Adult Echocardiography Procedure Report Left Ventricle LVEDD (3.7 - 5.6 cm): 4.00 cm LVESD (2.2 - 4.0 cm): 2.66 cm LVIVS thickness (0.6 - 1.2 cm): 1.29 cm LVPW thickness (0.5 - 1.0 cm): 1.73 cm e': 0.09 m/s E - e': 9.18 LVOT Max Gradient: 2.91 mm[Hg] LVOT Area (cm2): 0.85 m/s Peak Velocity (LVOT): 0.85 m/s Mean Velocity (LVOT): 0.60 m/s LVOT Diameter 2.18 cm Left Ventricular Ejection Fraction: 67.18 % Left Atrium LA Volume Index (2D A2C): 45.07 ml/m2 Left Atrium Systolic Dimension: 4.17 cm Mitral Valve MV E to A Ratio: 1.06 Mitral Valve A-Wave Peak Velocity: 0.80 m/s Mitral Valve E-Wave Peak Velocity: 0.85 m/s Right Ventricle RV Internal Diastolic Dimension: 3.19 cm Aorta AO Root Diam: 3.77 cm Ascending Ao Diam: 3.64 cm Aortic Valve AoV Area (Peak Cseario): 1.42 cm2, 1.42 cm2 AoV Area (VTI): 1.69 cm2, 1.69 cm2 Peak Velocity(Antegrade Flow): 2.25 m/s Peak Gradient(Antegrade Flow): 20.20 mm[Hg] Mean Velocity(Antegrade Flow): 1.43 m/s Mean Gradient(Antegrade Flow): 9.75 mm[Hg] Velocity Time Integral: 43.86 cm Tricuspid Valve Peak Velocity (Regurgitant Flow): 2.80 m/s, 3.06 m/s Pulmonic Valve Mean Gradient: 5.64 mm[Hg], 3.62 mm[Hg] Mean Velocity: 1.13 m/s, 0.90 m/s Peak Velocity: 1.43 m/s Peak Gradient: 10.40 mm[Hg], 6.33 mm[Hg] Right Atrium Right Atrium Systolic Pressure: 36.36 ml, 36.36 ml Dictated by: Lucia Griffith M.D. on 12/07/2022 at 18:21 Approved by: Lucia Griffith M.D. on 12/07/2022 at 18:29 Dictated By: LUCIA GRIFFITH Signed By:12/07/22 183 DD/ 28 TD/TT: Bridge Builder: Generic External Data Provider [facility] Final Result documented in this encounter Visit Diagnoses Not on filedocumented in this encounter Care Teams Deputy Director Of Finance Relationship Specialty Start Date End Date Frantz Conley MD [address] [facility] 110 [place] [address] PCP - General Internal Medicine 08/08/22 Frantz Conley MD [address] [facility] 110 [place] [address] PCP - ACO Reach 08/16/22 Jazmin Toribio, ORTHOTICS TECHNICIAN [address] [place] [address] Clerk Of Scales Family Medicine 08/04/24 08/07/24 Dang Bosch LPN 112 [facility] 110 [place] [address] 08/07/24 08/07/24 documented as of this encounter
--- OUTSIDE RECORDS SUMMARY | 2024-10-01 08:14 | XMS_ITS | Encounter Summary ---
Author Organization [facility] Address [address] [place] [address] Care Team Providers Care Customer Agent Name Role Phone Frantz Conley MD Primary Care Provider [phone] Frantz Conley MD Unavailable [phone] Jazmin Toribio C DEVELOPER Unavailable [phone] Dang Bosch LPN Unavailable Encounter Details Date Type Department Care Team (Late st Contact Info) Description 05/01/2023 Orders Only [facility] [address] [facility] [address] [place] [address] Unallocated, Noms Provider, [address] [place], [place] [id number] Social History Tobacco Use Types Packs/Day Years [...] often do you attend chur ch or episcopalian services? More than 4 times per year 04/15/2023 Do you belong to any clubs o r organizations such as sabianism groups, unions, fraternal or athletic groups, or [...] Recorded Patient Health Questionnaire-2 Score 0 08/22/2022 [facility] Occupat ional Health - [...] place to sleep or slept in a snf (including now)? No 04/15/2023 Sex and Gender [...] Office Visit [facility] [address] [facility] 110 [place] [address] Frantz Conley MD [address] [facility] 110 [place] [address] 10/20/2024 11:00 AM EDT Office Visit [facility] [address] [facility] 110 [place] [address] Rosanna Bautista PA [address] [facility] 110 [place] [address] documented as of this encounter Procedures Procedure Name Priority Date/Time Associated Diagnosis Comments SCANNED LABS Routine 04/30/2023 8:23 AM EST SCANNED LABS Routine 04/30/2023 8:12 AM EST documented in this encounter Results * SCANNED LABS (04/30/2023 8:23 AM EST) us Noms Provider Unallocated MD LAB CHG PERFORMABLE S Final Result * SCANNED LABS (04/30/2023 8:12 AM EST) us Noms Provider Unallocated MD LAB CHG PERFORMABLE S Final Result documented in this encounter Visit Diagnoses Not on filedocumented in this encounter Care Teams Customer Agent Relationship Specialty Start Date End Date Frantz Conley MD [address] [facility] 110 [place] [address] PCP - General Internal Medicine 08/08/22 Frantz Conley MD [address] [facility] [address] [place] [address] PCP - ACO Reach 08/16/22 Jazmin Toribio, BLAYNE [address] [place] [address] Flavor Tank Tender Family Medicine 08/04/24 08/07/24 Dang Bosch LPN [address] [facility] 110 [place] [address] 08/07/24 08/07/24 documented as of this encounter
--- OUTSIDE RECORDS SUMMARY | 2024-10-01 08:14 | XMS_ITS | Encounter Summary ---
Author Organization [facility] Address [address] [place] [address] Care Team Providers Care Packing Checker Name Role Phone Frantz Conley MD Primary Care Provider [phone] Frantz Conley MD Unavailable [phone] Jazmin Toribio SOFTWARE QA MANAGER Unavailable [phone] Dang Bosch MIDDLE SCHOOL COACH Unavailable Encounter Details Date Type Department Care Team (Late st Contact Info) Description 09/18/2023 Abstract [facility] 112 [facility] 110 [place] [address] Frantz Conley MD 112 [facility] 110 [place] [address] Social History Tobacco Use Types [...] How often do you attend chur or mormonism services? More than 4 times per year 04/15/2023 Do you belong to any clubs o r organizations such as episcopalian groups, unions, fraternal or athletic groups, or [...] Recorded Patient Health Questionnaire-2 Score 0 08/22/2022 [facility] Occupat ional Health - Occupational [...] place to sleep or slept in a intermediate (including now)? No 04/15/2023 Sex and Gender Information Value Date Recorded Sex Assigned at Not on file Legal Sex Male 6:37 PM EDT Gender Identity Not on file Sexual Orientation Not on file documented as of this encounter Plan of Treatment Upcoming Encounters Date Type Department Care Team (Late st Contact Info) Description 10/05/2024 11:00 AM EDT Office Visit [facility] [address] [facility] 110 [place] [address] Frantz Conley MD [address] [facility] [address] [place] [address] 10/20/2024 11:00 AM EDT Office Visit [facility] [address] [facility] [address] [place] [address] Rosanna Bautista PA [address] [facility] [address] [place] [address] documented as of this encounter Visit Diagnoses Not on filedocumented in this encounter Care Teams Packing Checker Relationship Specialty Start Date End Date Frantz Conley MD [address] [facility] 110 [place] [address] PCP - General Internal Medicine 08/08/22 Frantz Conley MD [address] [facility] 110 [place] [address] PCP - ACO Reach 08/16/22 Jazmin Toribio, SOFTWARE QA MANAGER [address] [place] [address] Summer Intern Family Medicine 08/04/24 08/07/24 Dang Bosch LPN [address] [facility] 110 [place] [address] 08/07/24 08/07/24 documented as of this encounter
--- OUTSIDE RECORDS SUMMARY | 2024-10-01 08:14 | XMS_ITS | Encounter Summary ---
Author Organization [facility] Address [address] [place] [address] Care Team Providers Care Low Voltage Technician Name Role Phone Frantz Conley MD Primary Care Provider [phone] Frantz Conley MD Unavailable [phone] Jazmin Toribio CELL LEAD Unavailable [phone] Dang Bosch LPN Unavailable Encounter Details Date Type Department Care Team (Late st Contact Info) Description 05/02/2023 Orders Only [facility] [address] [facility] [address] [place] [address] A, Unknown Practice [address] [place] [address] Social History Tobacco Use Types Packs/Day Years [...] How often do you attend chur or yazidism services? More than 4 times per year 04/15/2023 Do you belong to any clubs o r organizations such as latter-day groups, unions, fraternal or athletic groups, or [...] Recorded Patient Health Questionnaire-2 Score 0 08/22/2022 [facility] of Occupat ional Health [...] place to sleep or slept in a [place] facility (including now)? No 04/15/2023 Sex and Gender Information Value Date Recorded Sex Assigned at Not on file Legal Sex Male 6:37 PM EDT Gender Identity Not on file Sexual Orientation Not on file documented as of this encounter Plan of Treatment Upcoming Encounters Date Type Department Care Team (Late st Contact Info) Description 10/05/2024 11:00 AM EDT Office Visit [facility] [address] [facility] 110 [place] [phone] Frantz Conley MD [address] [facility] 110 [place] [address] 10/20/2024 11:00 AM EDT Office Visit [facility] [address] [facility] 110 [place] [address] Rosanna Bautista PA [address] [facility] 110 [place] [address] documented as of this encounter Procedures Procedure Name Priority Date/Time Associated Diagnosis Comments ELECTROCARDIOGRAM REPORT Routine 024 4:02 PM EST documented in this encounter Results * Electrocardiogram Report (04/30/2023 4:02 PM EST) us Unknown Practice A IN CLINIC/BEDSIDE ORDERABLES Final Result documented in this encounter Visit Diagnoses Not on filedocumented in this encounter Care Teams Low Voltage Technician Relationship Specialty Start Date End Date Frantz Conley MD [address] [facility] 110 [place] [address] PCP - General Internal Medicine 08/08/22 Frantz Conley MD [address] [facility] 110 [place] [address] PCP - ACO Reach 08/16/22 Jazmin Toribio, BLAYNE [address] [place] [address] Hosting Engineer Family Medicine 08/04/24 08/07/24 Dang Bosch LPN [address] [facility] 110 [place] [address] 08/07/24 08/07/24 documented as of this encounter
--- OUTSIDE RECORDS SUMMARY | 2024-10-01 08:14 | XMS_ITS | Encounter Summary ---
Author Organization [facility] Address [address] [place] [address] Care Team Providers Care Internal Combustion Engine Subassembler Name Role Phone Frantz Conley MD Primary Care Provider [phone] Frantz Conley MD Unavailable [phone] Jazmin Toribio ADMINISTRATIVE NURSING SUPERVISOR Unavailable [phone] Dang Bosch MATERIALS RECYCLER Unavailable Encounter Details Date Type Department Care Team (Late st Contact Info) Description 05/08/2023 Abstract [facility] 112 [facility] 110 [place] [address] Frantz Conley MD 112 [facility] 110 [place] [address] Social History Tobacco Use Types [...] any clubs o r organizations such as advent groups, unions, fraternal or athletic groups, or [...] Recorded Patient Health Questionnaire-2 Score 0 08/22/2022 [facility] of Occupat ional Health - Occupational [...] 10/05/2024 11:00 AM EDT Office Visit [facility] [address] [facility] 110 [place] [address] Frantz Conley MD [address] [facility] [address] [place] [address] 10/20/2024 11:00 AM EDT Office Visit [facility] [address] [facility] [address] [place] [address] Rosanna Bautista PA [address] [facility] [address] [place] [address] documented as of this encounter Visit Diagnoses Not on filedocumented in this encounter Care Teams Internal Combustion Engine Subassembler Relationship Specialty Start Date End Date Frantz Conley MD [address] [facility] 110 [place] [address] PCP - General Internal Medicine 08/08/22 Frantz Conley MD [address] [facility] 110 [place] [address] PCP - ACO Reach 08/16/22 Jazmin Toribio, ADMINISTRATIVE NURSING SUPERVISOR [address] [place] [address] Supervisor Instrument Mechanics Family Medicine 08/04/24 08/07/24 Dang Bosch LPN [address] [facility] 110 [place] [address] 08/07/24 08/07/24 documented as of this encounter
--- OUTSIDE RECORDS SUMMARY | 2024-10-01 08:14 | XMS_ITS | Encounter Summary ---
Author Organization [facility] Address [address] [place] [address] Care Team Providers Care Continuum Of Care Manager Name Role Phone Frantz Conley MD Primary Care Provider [phone] Frantz Conley MD Unavailable [phone] Jazmin Toribio OUTCOMES ANALYST Unavailable [phone] MONITOR Unavailable Encounter Details Date Type Department Care Team (Late st Contact Info) Description 08/20/2022 Abstract [facility] 112 [facility] 110 [place] [phone] Frantz Conley MD 112 [facility] 110 [place], [place] [phone] Social History Tobacco Use Types Packs/Day Years Used Date Smoking Tobacco: Never Smokeless Tobacco: Never Tobacco Cessation:Counseling Given: Not Answered Alcohol Use Standard Drinks/Week Comments Not Asked 0 (1 standard drink = 0.6 oz pure alcohol) caffeine intake: 1-2 cups per day. PHQ-2 Answer Date Recorded Patient Health Questionnaire-2 Score 0 08/22/2022 Sex and Gender Information Value Date Recorded Sex Assigned at Not on file Legal Sex Male 6:37 PM EDT Gender Identity Not on file Sexual Orientation Not on file COVID-19 Exposure Response Date Recorded In the last 10 days, have yo u been in contact with someone who was confirmed or suspected to have Coronavirus/COVID-19? No / Unsure 08/08/2022 1:37 PM EDT documented as of this encounter Functional Status * Over the past 2 weeks, how often have you been bothered by any of the following problems? Question Answer Date of Assessment Author Little interest or pleasure in doing things Not at all 08/22/2022 1:00 PM EDT Franchesca Lewis LP N Feeling down, depressed, or hopeless Not at all 08/22/2022 1:00 PM EDT Franchesca Lewis [facility] N Patient Health Questionnaire -2 Score 0 08/22/2022 1:00 PM EDT Franchesca Lewis [facility] N documented as of this encounter Plan of Treatment Upcoming Encounters Date Type Department Care Team (Late st Contact Info) Description 10/05/2024 11:00 AM EDT Office Visit [facility] [address] [facility] [address] [place] [address] Frantz Conley MD [address] [facility] [address] [place] [address] 10/20/2024 11:00 AM EDT Office Visit [facility] [address] [facility] [address] [place] [address] Rosanna Bautista PA [address] [facility] [address] [place] [address] documented as of this encounter Visit Diagnoses Not on filedocumented in this encounter Care Teams Continuum Of Care Manager Relationship Specialty Start Date End Date Frantz Conley MD [address] [facility] [address] [place] [address] PCP - General Internal Medicine 08/08/22 Frantz Conley MD [address] [facility] [address] [place] [address] PCP - ACO Reach 08/16/22 Jazmin Toribio, OUTCOMES ANALYST [address] [place] [address] Dean Of Student Services Family Medicine 08/04/24 08/07/24 Dang Bosch LPN 112 [facility] 110 [place] [id number] 08/07/24 08/07/24 documented as of this encounter
--- OUTSIDE RECORDS SUMMARY | 2024-10-01 08:14 | XMS_ITS | Encounter Summary ---
Author Organization [facility] Address [address] [place] [address] Care Team Providers Care Criminal Attorney Name Role Phone Frantz Conley MD Primary Care Provider [phone] Frantz Conley MD Unavailable [phone] Jazmin Toribio MEDICAL RECORDS DIRECTOR Unavailable [phone] Dang Bosch CONTROLLER MECHANIC Unavailable Encounter Details Date Type Department Care Team (Late st Contact Info) Description 05/21/2023 Abstract [facility] 112 [facility] 110 [place] [address] Frantz Conley MD 112 [facility] 110 [place] [address] Social History Tobacco Use Types [...] How often do you attend chur or restorationism services? More than 4 times per year 04/15/2023 Do you belong to any clubs o r organizations such as jainism groups, unions, fraternal or athletic groups, or [...] Recorded Patient Health Questionnaire-2 Score 0 08/22/2022 [facility] of Occupat ional Health - [...] place to sleep or slept in a skilled nursing (including now)? No 04/15/2023 Sex and Gender Information Value Date Recorded Sex Assigned at Not on file Legal Sex Male 6:37 PM EDT Gender Identity Not on file Sexual Orientation Not on file documented as of this encounter Plan of Treatment Upcoming Encounters Date Type Department Care Team (Late st Contact Info) Description 10/05/2024 11:00 AM EDT Office Visit [facility] [address] [facility] 110 [place] [address] Frantz Conley MD [address] [facility] [address] [place] [address] 10/20/2024 11:00 AM EDT Office Visit [facility] [address] [facility] [address] [place] [address] Rosanna Bautista PA [address] [facility] [address] [place] [address] documented as of this encounter Visit Diagnoses Not on filedocumented in this encounter Care Teams Criminal Attorney Relationship Specialty Start Date End Date Frantz Conley MD [address] [facility] 110 [place] [address] PCP - General Internal Medicine 08/08/22 Frantz Conley MD [address] [facility] 110 [place] [address] PCP - ACO Reach 08/16/22 Jazmin Toribio, MEDICAL RECORDS DIRECTOR [address] [place] [address] Liner Reroll Tender Family Medicine 08/04/24 08/07/24 Dang Bosch LPN [address] [facility] 110 [place] [address] 08/07/24 08/07/24 documented as of this encounter
--- OUTSIDE RECORDS SUMMARY | 2024-10-01 08:14 | XMS_ITS | Encounter Summary ---
Author Organization [facility] Address [address] [place] [address] Care Team Providers Care Courseware Developer Name Role Phone Frantz Conley MD Primary Care Provider [phone] Frantz Conley MD Unavailable [phone] Jazmin Toribio JEWEL CORNER BRUSHING MACHINE OPERATOR Unavailable [phone] Dang Bosch CYBER TRANSPORT SYSTEMS SPECIALIST Unavailable Encounter Details Date Type Department Care Team (Late st Contact Info) Description 06/20/2023 Abstract [facility] 112 [facility] 110 [place] [address] Frantz Conley MD 112 [facility] 110 [place] [address] Social History Tobacco Use Types [...] How often do you attend chur or sikhism services? More than 4 times per year 04/15/2023 Do you belong to any clubs o r organizations such as confucianist groups, unions, fraternal or athletic groups, or [...] Recorded Patient Health Questionnaire-2 Score 0 08/22/2022 [facility] Occupat ional Health - Occupational [...] 10/05/2024 11:00 AM EDT Office Visit [facility] [address] [facility] 110 [place] [address] Frantz Conley MD [address] [facility] [address] [place] [address] 10/20/2024 11:00 AM EDT Office Visit [facility] [address] [facility] [address] [place] [address] Rosanna Bautista PA [address] [facility] [address] [place] [address] documented as of this encounter Visit Diagnoses Not on filedocumented in this encounter Care Teams Courseware Developer Relationship Specialty Start Date End Date Frantz Conley MD [address] [facility] 110 [place] [address] PCP - General Internal Medicine 08/08/22 Frantz Conley MD [address] [facility] 110 [place] [address] PCP - ACO Reach 08/16/22 Jazmin Toribio, JEWEL CORNER BRUSHING MACHINE OPERATOR [address] [place] [address] Picker Operator Family Medicine 08/04/24 08/07/24 Dang Bosch LPN [address] [facility] 110 [place] [address] 08/07/24 08/07/24 documented as of this encounter
--- OUTSIDE RECORDS SUMMARY | 2024-10-01 08:14 | XMS_ITS | Encounter Summary ---
Author Organization [facility] Address [address] [place] [address] Care Team Providers Care Knife Finisher Name Role Phone Frantz Conley MD Primary Care Provider [phone] Frantz Conley MD Unavailable [phone] Jazmin Toribio CHILDREN'S SERVICE WORKER Unavailable [phone] Dang Bosch HARDWOOD FLOORING SPECIALIST Unavailable Encounter Details Date Type Department Care Team (Late st Contact Info) Description 06/05/2023 External Result Encounter [facility] External Department Unsolicited Frantz Conley MD [address] [place] 110 [place] [address] Social History Tobacco Use Types Packs/Day Years [...] How often do you attend chur or restoration services? More than 4 times per year 04/15/2023 Do you belong to any clubs o r organizations such as catholic groups, unions, fraternal or athletic groups, or [...] Recorded Patient Health Questionnaire-2 Score 0 08/22/2022 [facility] of Occupat ional Health - [...] place to sleep or slept in a correction (including now)? No 04/15/2023 Sex and Gender [...] [address] [facility] [address] [place] [address] Frantz Conley MD [address] [facility] [address] [place] [address] 10/20/2024 11:00 AM EDT Office Visit [facility] [address] [facility] [address] [place] [address] Rosanna Bautista PA [address] [facility] [address] [place] [address] documented as of this encounter Procedures Procedure Name Priority Date/Time Associated Diagnosis Comments US ABDOMEN LIMITED SPLEEN 06/05/2023 12:06 PM EDT documented in this encounter Results * US abdomen limited spleen (06/05/2023 12:06 PM EDT) Anatomical Region Laterality Modality Abdomen, Spleen Ultrasound 06/05/2023 12:0 6 PM EDT Impressions 06/05/2023 12:09 PM EDT Splenomegaly. No focal lesion. Impression dictated by: Kartik Claros Jr., D.OKita06/05/2023 12:06 PM Dictation Location: [place] [address] Tech: Demi Weinberg Transcribed By: USMAN 06/05/23 1206 Dictated By: Kartik Claros Jr, DO 06/05/23 1206 Signed By: <Electronically signed by Kartik Claros Jr, DO in OV> 06/05/23 1206 Narrative 06/05/2023 12:09 PM EDT [facility] Main [place] [id number] Ultrasound Report Signed Patient: Pankaj Matthews MR#: [id number] : 1945 Acct:[id number] Age/Sex: 77 / M ADM Date: 06/05/23 Loc: UL Room: Type: REG CLI Attending Dr: Frantz Conley II, MD Ordering [...] of lesion or free fluid. US/US spleen Procedure Note Radiology, Radiologist, MD - 06/05/2023 [place] [id number] Ultrasound Report Signed Patient: Pankaj Matthews AMR#: [id number] : 1945cct:[id number] Age/Sex: 77 / MADM Date: 06/05/23 Loc: UL Room:Type: REG CLI Attending Dr: Frantz Conley II, MD Ordering Provider: Frantz Conley II, MD Date of Service: 06/05/23 US/US spleen: [id number] Copies to: Frantz Conley II, MD Splenic ultrasound. Reason for exam: Pancytopenia. COMPARISON: CT abdomen and pelvis 10/10/2021. TECHNIQUE: Grayscale and color Doppler images of the spleen were obtained. FINDINGS: Splenomegaly is present measuring 15.5 cm without evidence oflesion or free fluid. US/US spleen IMPRESSION: Splenomegaly. No focal lesion. Impression dictated by: Kartik Claros Jr., D.OKita06/05/2023 12:06 PM Dictation Location: [place] [address] Tech: Demi Weinberg Transcribed By: PWS 06/05/23 1206 Dictated By: Kartik Claros Jr, DO 06/05/23 1206 Signed By: <Electronically signed by Kartik Claros Jr, DO inOV> 06/05/23 1206 us Frantz Conley MD IMG US PROCEDURES Final Result documented in this encounter Visit Diagnoses Not on filedocumented in this encounter Care Teams Knife Finisher Relationship Specialty Start Date End Date Frantz Conley MD [address] [facility] [address] [place] [address] PCP - General Internal Medicine 08/08/22 Frantz Conley MD [address] [facility] [address] [place] [address] PCP - ACO Reach 08/16/22 Jazmin Toribio, CHILDREN'S SERVICE WORKER [address] [place] [address] Sharepoint Designer Developer Family Medicine 08/04/24 08/07/24 Dang Bosch LPN [address] [facility] [address] [place] [address] 08/07/24 08/07/24 documented as of this encounter
--- OUTSIDE RECORDS SUMMARY | 2024-10-01 08:14 | XMS_ITS | Encounter Summary ---
Author Organization [facility] Address [address] [place] [address] Care Team Providers Care Newspaper Or Periodical Editor Name Role Phone Frantz Conley MD Primary Care Provider [phone] Frantz Conley MD Unavailable [phone] Jazmin Toribio PRINCIPAL EMBEDDED SOFTWARE ENGINEER Unavailable [phone] Dang Bosch LPN Unavailable Encounter Details Date Type Department Care Team (Late st Contact Info) Description 12/16/2023 Abstract [facility] 112 [facility] 110 [place] [address] Frantz Conley MD 112 [facility] 110 [place] [address] Social History Tobacco Use Types [...] How often do you attend chur or judaism services? More than 4 times per year 04/15/2023 Do you belong to any clubs o r organizations such as restorationism groups, unions, fraternal or athletic groups, or [...] Recorded Patient Health Questionnaire-2 Score 0 10/21/2023 [facility] of Occupat ional Health - Occupational [...] 10/05/2024 11:00 AM EDT Office Visit [facility] [address] [facility] 110 [place] [address] Frantz Conley MD [address] [facility] [address] [place] [address] 10/20/2024 11:00 AM EDT Office Visit [facility] [address] [facility] [address] [place] [address] Rosanna Bautista PA [address] [facility] [address] [place] [address] documented as of this encounter Visit Diagnoses Not on filedocumented in this encounter Additional Health Concerns Assessment Noted Time PHQ-9 Depression Total Score: 0 10/21/19 24 11:00 AM EDT documented as of this encounter Care Teams Newspaper Or Periodical Editor Relationship Specialty Start Date End Date Frantz Conley MD [address] [facility] 110 [place] [address] PCP - General Internal Medicine 08/08/22 Frantz Conley MD [address] [facility] 110 [place] [address] PCP - ACO Reach 08/16/22 Jazmin Toribio, BLAYNE [address] [place] [address] Tourist Guide Family Medicine 08/04/24 08/07/24 Dang Bosch LPN [address] [facility] 110 [place] [address] 08/07/24 08/07/24 documented as of this encounter
--- OUTSIDE RECORDS SUMMARY | 2024-10-01 08:14 | XMS_ITS | Clinical Summary ---
Author Organization [facility] Address [address] [place] [address] Care Team Providers Care Sign Writer Letterer Or Painter Name Role Phone Frantz Conley MD Primary Care Provider [phone] Allergies No known active allergies Medications tiZANidine (ZANAFLEX) 4 MG tablet Take 4 mg by mouth every 6 hours as needed Active atorvastatin (LIPITOR) 20 MG tablet Take 20 mg by mouth daily Active levothyroxine (SYNTHROID) 100 MCG tablet Take 100 mcg by mouth Daily Active aspirin 81 MG chewable tablet Take 81 mg by mouth daily Active Multiple Vitamins-Mineral s (THERAPEUTIC MULTIVITAMIN-MIN ERALS) tablet Take 1 tablet by mouth daily Active [place]-3 Fatty Acids (FISH OIL) 1000 MG CAPS Take 1,000 mg by mouth 3 times daily Active omeprazole (PRILOSEC) 40 MG delayed release capsule Take 40 mg by mouth daily Active clopidogrel (PLAVIX) 75 MG tablet Take 75 mg by mouth daily Active Active Problems Problem Noted Date Diagnosed Date SAH (subarachnoid hemorrhage) 08/16/2021 Subarachnoid hemorrhage foll owing injury, no loss of consciousness Subdural hematoma Social History Tobacco Use Types Packs/Day Years Used Date Smoking Tobacco: Never Smokeless Tobacco: Never Alcohol Use Standard Drinks/Week Comments Never 0 (1 standard drink = 0.6 oz pur e alcohol) Sex and Gender Information Value Date Recorded Sex Assigned at Not on file Legal Sex Male 4:23 PM EDT Gender Identity Not on file Sexual Orientation Not on file Last Filed Vital Signs Vital Sign Reading Time Taken Comments Blood Pressure 139/80 08/17/2021 10:00 AM EDT Pulse 69 08/17/2021 11:15 AM EDT Temperature 36.7 C (98 F) 08/17/2021 12:00 PM EDT Respiratory Rate 19 08/17/2021 11:15 AM EDT Oxygen Saturation 98% 08/17/2021 11:15 AM EDT Inhaled Oxygen Concentration - - Weight 81.9 kg (180 lb 9.6 oz) 08/16/2021 9:48 P M EDT Height 165.1 cm (5' 5 ) 08/16/2021 9:48 PM EDT Body Mass Index 30.05 08/16/2021 9:48 PM EDT Plan of Treatment Not on file Insurance MEDICARE Member Subscriber Plan / Payer ( fective 2014-Present) Name:Pankaj Matthews Relation to Subscriber:Self Name:Pankaj Matthews Payer ID:Not on file Group ID:Not on file Type:Not on file Address: [address] MEDICARE [facility] Advance Directives * Full Code (Latest Code Status on File) Date Activated Date Inactivated Comments 08/16/2021 8:15 PM 08/17/2021 4:39 PM Care Teams Sign Writer Letterer Or Painter Relationship Specialty Start Date End Date Frantz Conley MD [address] [facility] 110 [place] [address] PCP - General Internal Medicine 08/16/21
--- OUTSIDE RECORDS SUMMARY | 2024-10-01 08:14 | XMS_ITS | Encounter Summary ---
Author Organization [facility] Address [address] [place] [address] Care Team Providers Care Pipe Jeeper Name Role Phone Frantz Conley MD Primary Care Provider [phone] Frantz Conley MD Unavailable [phone] Jazmin Toribio HEAVY MACHINERY ASSEMBLER Unavailable [phone] Dang Bosch ICE CREAM SERVER Unavailable Encounter Details Date Type Department Care Team (Late Contact Info) Description 10/01/2022 Abstract [facility] 112 [facility] 110 [place] [phone] Frantz Conley MD 112 [facility] 110 [place], [place] [address] Social History Tobacco Use Types Packs/Day Years [...] Office Visit [facility] 112 [facility] 110 [place] [address] Frantz Conley MD [address] [facility] 110 [place] [address] 10/20/2024 11:00 AM EDT Office Visit [facility] [address] [facility] [address] [place] [address] Rosanna Bautista, PA [address] [facility] 110 [place] [address] documented as of this encounter Visit Diagnoses Not on filedocumented in this encounter Care Teams Pipe Jeeper Relationship Specialty Start Date End Date Frantz Conley MD [address] [facility] 110 [place] [address] PCP - General Internal Medicine 08/08/22 Frantz Conley MD [address] [facility] [address] [place] [address] PCP - ACO Reach 08/16/22 Jazmin Toribio, BLAYNE [address] [place] [address] Branch Retail Executive Family Medicine 08/04/24 08/07/24 Dang Bosch LPN [address] [facility] 110 [place] [address] 08/07/24 08/07/24 documented as of this encounter
--- OUTSIDE RECORDS SUMMARY | 2024-10-01 08:14 | XMS_ITS | Encounter Summary ---
Author Organization [facility] Address [address] [place] [place] [address] Care Team Providers Care Aerospace Engineer Officer Armament Name Role Phone Frantz Conley MD Primary Care Provider [phone] Frantz Conley MD Unavailable [phone] Jazmin Toribio INSTRUMENT LENS INSPECTOR Unavailable [phone] Dang Bosch ANTIQUE CLOCKS REPAIRER Unavailable Encounter Details Date Type Department Care Team (Late st Contact Info) Description 08/31/2022 Abstract [facility] 112 [facility] 110 [place] [address] Frantz Conley MD 112 [facility] 110 [place], [place] [address] Social History Tobacco Use Types Packs/Day Years [...] PM EDT documented as of this encounter Plan of Treatment Upcoming Encounters Date Type Department Care Team (Late st Contact Info) Description 10/05/2024 11:00 AM EDT Office Visit [facility] [address] [facility] [address] [place] [address] Frantz Conley MD [address] [facility] [address] [place] [address] 10/20/2024 11:00 AM EDT Office Visit [facility] [address] [facility] [address] [place] [address] Rosanna Bautista PA [address] [facility] [address] [place] [address] documented as of this encounter Visit Diagnoses Not on filedocumented in this encounter Care Teams Aerospace Engineer Officer Armament Relationship Specialty Start Date End Date Frantz Conley MD [address] [facility] [address] [place] [address] PCP - General Internal Medicine 08/08/22 Frantz Conley MD [address] [facility] [address] [place] [address] PCP - ACO Reach 08/16/22 Jazmin Toribio, INSTRUMENT LENS INSPECTOR [address] [place] [address] Baker Second Family Medicine 08/04/24 08/07/24 Dang Bosch LPN [address] [facility] [address] [place] [address] 08/07/24 08/07/24 documented as of this encounter
--- OUTSIDE RECORDS SUMMARY | 2024-10-01 08:14 | XMS_ITS | Encounter Summary ---
Author Organization [facility] Address [address] [place] [address] Care Team Providers Care Director Of Housing And Energy Services Name Role Phone Frantz Conley MD Primary Care Provider [phone] Frantz Conley MD Unavailable [phone] Jazmin Toribio INSTRUCTOR WATCH ASSEMBLY Unavailable [phone] Dang Bosch LPN Unavailable Encounter Details Date Type Department Care Team (Late st Contact Info) Description 12/16/2023 Abstract [facility] 112 [facility] 110 [place] [address] Frantz Conley MD 112 [facility] 110 [place] [address] Social History Tobacco Use Types [...] How often do you attend chur or orthodox services? More than 4 times per year 04/15/2023 Do you belong to any clubs o r organizations such as lutheran groups, unions, fraternal or athletic groups, or [...] Recorded Patient Health Questionnaire-2 Score 0 10/21/2023 [facility] of Occupat ional Health - [...] place to sleep or slept in a long-term (including now)? No 04/15/2023 Sex and Gender Information Value Date Recorded Sex Assigned at Not on file Legal Sex Male 6:37 PM EDT Gender Identity Not on file Sexual Orientation Not on file documented as of this encounter Plan of Treatment Upcoming Encounters Date Type Department Care Team (Late st Contact Info) Description 10/05/2024 11:00 AM EDT Office Visit [facility] [address] [facility] 110 [place] [address] Frantz Conley MD [address] [facility] [address] [place] [address] 10/20/2024 11:00 AM EDT Office Visit [facility] [address] [facility] [address] [place] [address] Rosanna Bautista PA [address] [facility] [address] [place] [address] documented as of this encounter Visit Diagnoses Not on filedocumented in this encounter Additional Health Concerns Assessment Noted Time PHQ-9 Depression Total Score: 0 10/21/19 24 11:00 AM EDT documented as of this encounter Care Teams Director Of Housing And Energy Services Relationship Specialty Start Date End Date Frantz Conley MD [address] [facility] 110 [place] [address] PCP - General Internal Medicine 08/08/22 Frantz Conley MD [address] [facility] 110 [place] [address] PCP - ACO Reach 08/16/22 Jazmin Toribio, BLAYNE [address] [place] [address] Aviation Support Equipment Repairer Family Medicine 08/04/24 08/07/24 Dang Bocsh LPN [address] [facility] 110 [place] [address] 08/07/24 08/07/24 documented as of this encounter
--- OUTSIDE RECORDS SUMMARY | 2024-10-01 08:14 | XMS_ITS | Encounter Summary ---
Author Organization [facility] Address [address] [place] [address] Care Team Providers Care Director Cardiac Name Role Phone Frantz Conley MD Primary Care Provider [phone] Frantz Conley MD Unavailable [phone] Jazmin Toribio PIER HAND Unavailable [phone] Dang Bosch NATURAL GAS SHOTHOLE DRILLER Unavailable Encounter Details Date Type Department Care Team (Late st Contact Info) Description 07/03/2023 Abstract [facility] 112 [facility] 110 [place] [address] Frantz Conley MD 112 [facility] 110 [place] [address] Social History Tobacco Use Types [...] How often do you attend chur or episcopalian services? More than 4 times per year 04/15/2023 Do you belong to any clubs o r organizations such as yazidism groups, unions, fraternal or athletic groups, or [...] Recorded Patient Health Questionnaire-2 Score 0 08/22/2022 [facility] of Occupat ional Health - Occupational Stress [...] place to sleep or slept in a nursing home (including now)? No 04/15/2023 Sex and Gender Information Value Date Recorded Sex Assigned at Not on file Legal Sex Male 6:37 PM EDT Gender Identity Not on file Sexual Orientation Not on file documented as of this encounter Plan of Treatment Upcoming Encounters Date Type Department Care Team (Late st Contact Info) Description 10/05/2024 11:00 AM EDT Office Visit [facility] [address] [facility] [address] [place] [address] Frantz Conley MD [address] [facility] [address] [place] [address] 10/20/2024 11:00 AM EDT Office Visit [facility] [address] [facility] [address] [place] [address] Rosanna Bautista PA [address] [facility] [address] [place] [address] documented as of this encounter Visit Diagnoses Not on filedocumented in this encounter Care Teams Director Cardiac Relationship Specialty Start Date End Date Frantz Conley MD [address] [facility] 110 [place] [address] PCP - General Internal Medicine 08/08/22 Frantz Conley MD [address] [facility] 110 [place] [address] PCP - ACO Reach 08/16/22 Jazmin Toribio, PIER HAND [address] [place] [address] Director Of Strategic Communications Family Medicine 08/04/24 08/07/24 Dang Bosch LPN [address] [facility] 110 [place] [address] 08/07/24 08/07/24 documented as of this encounter
--- OUTSIDE RECORDS SUMMARY | 2024-10-01 08:14 | XMS_ITS | Encounter Summary ---
Author Organization [facility] Address [address] [place] [address] Care Team Providers Care Building Custodial Supervisor Name Role Phone Frantz Conley MD Primary Care Provider [phone] Frantz Conley MD Unavailable [phone] Jazmin Toribio TOUR SALES REPRESENTATIVE Unavailable [phone] Dang Bosch LPN Unavailable Encounter Details Date Type Department Care Team (Late st Contact Info) Description 10/09/2023 Abstract [facility] 112 [facility] 110 [place] [address] Frantz Conley MD 112 [facility] 110 [place] [address] Social History Tobacco Use Types [...] How often do you attend chur or anabaptism services? More than 4 times per year 04/15/2023 Do you belong to any clubs o r organizations such as yarsani groups, unions, fraternal or athletic groups, or [...] Recorded Patient Health Questionnaire-2 Score 0 08/22/2022 [facility] Occupat ional Health - [...] 10/05/2024 11:00 AM EDT Office Visit [facility] [address] [facility] 110 [place] [phone] Frantz Conley MD [address] [facility] [address] [place] [address] 10/20/2024 11:00 AM EDT Office Visit [facility] [address] [facility] [address] [place] [phone] Rosanna Bautista PA [address] [facility] [address] [place] [address] documented as of this encounter Visit Diagnoses Not on filedocumented in this encounter Care Teams Building Custodial Supervisor Relationship Specialty Start Date End Date Frantz Conley MD [address] [facility] 110 [place] [address] PCP - General Internal Medicine 08/08/22 Frantz Conley MD [address] [facility] 110 [place] [address] PCP - ACO Reach 08/16/22 Jazmin Toribio, TOUR SALES REPRESENTATIVE [address] [place] [address] Wall Taper Family Medicine 08/04/24 08/07/24 Dang Bosch LPN [address] [facility] 110 [place] [address] 08/07/24 08/07/24 documented as of this encounter
--- OUTSIDE RECORDS SUMMARY | 2024-10-01 08:14 | XMS_ITS | Encounter Summary ---
Author Organization [facility] Address [address] [place] [address] Care Team Providers Care Livestock Buyer Name Role Phone Frantz Conley MD Primary Care Provider [phone] Frantz Conley MD Unavailable [phone] Jazmin Toribio CITRUS FRUIT COLORER Unavailable [phone] Dang Bosch LPN Unavailable Encounter Details Date Type Department Care Team (Late st Contact Info) Description 05/08/2023 Orders Only [facility] [address] [facility] [address] [place] [address] A, Unknown Practice [address] [place] [address] Social History Tobacco Use Types [...] How often do you attend chur or moravian services? More than 4 times per year [...] Recorded Patient Health Questionnaire-2 Score 0 08/22/2022 [facility] of Occupat ional Health - [...] place to sleep or slept in a mcfp (including now)? No 04/15/2023 Sex and Gender Information Value Date Recorded Sex Assigned at Not on file Legal Sex Male 6:37 PM EDT Gender Identity Not on file Sexual Orientation Not on file documented as of this encounter Plan of Treatment Upcoming Encounters Date Type Department Care Team (Late st Contact Info) Description 10/05/2024 11:00 AM EDT Office Visit [facility] [address] [facility] 110 [place] [phone] Frantz Conley MD [address] [facility] 110 [place] [address] 10/20/2024 11:00 AM EDT Office Visit [facility] [address] [facility] 110 [place] [phone] Rosanna Bautista PA [address] [facility] 110 [place] [address] documented as of this encounter Procedures Procedure Name Priority Date/Time Associated Diagnosis Comments SCANNED LABS Routine 04/30/2023 1:21 PM EST XR CHEST 1 VIEW Routine 04/30/2023 1:20 PM EST ELECTROCARDIOGRAM REPORT Routine 024 1:18 PM EST documented in this encounter Results * SCANNED LABS (04/30/2023 1:21 PM EST) us Unknown Practice A LAB CHG PERFORMABLES Final Re sult * XR chest 1 view (04/30/2023 1:20 PM EST) Anatomical Region Laterality Modality Chest Radiographic Milly ging us Unknown Practice A IMG XR PROCEDURES Final Resul t * Electrocardiogram Report (04/30/2023 1:18 PM EST) us Unknown Practice A IN CLINIC/BEDSIDE ORDERABLES Final Result documented in this encounter Visit Diagnoses Not on filedocumented in this encounter Care Teams Livestock Buyer Relationship Specialty Start Date End Date Frantz Conley MD [address] [facility] 110 [place] [address] PCP - General Internal Medicine 08/08/22 Frantz Conley MD [address] [facility] 110 [place] [address] PCP - ACO Reach 08/16/22 Jazmin Toribio, CITRUS FRUIT COLORER [address] [place] [address] Conservation Policy Analyst Family Medicine 08/04/24 08/07/24 Dang Bosch LPN [address] [facility] 110 [place] [address] 08/07/24 08/07/24 documented as of this encounter
--- OUTSIDE RECORDS SUMMARY | 2024-10-01 08:15 | XMS_ITS | Encounter Summary ---
Author Organization [facility] Address [address] [place] [address] Care Team Providers Care Tram Operator Name Role Phone Frantz Conley MD Primary Care Provider [phone] Frantz Conley MD Unavailable [phone] Jazmin Toribio TELEPHONE DIAPHRAGM ASSEMBLER Unavailable [phone] Dang Bosch GRINDER SET UP OPERATOR SURFACE Unavailable Encounter Details Date Type Department Care Team (Late st Contact Info) Description 10/23/2023 Abstract [facility] 112 [facility] 110 [place] [address] Frantz Conley MD 112 [facility] 110 [place] [address] Social History Tobacco Use Types [...] How often do you attend chur or lutheran services? More than 4 times per year 04/15/2023 Do you belong to any clubs o r organizations such as methodist groups, unions, fraternal or athletic groups, or [...] Recorded Patient Health Questionnaire-2 Score 0 10/21/2023 [facility] of Occupat [...] 10/05/2024 11:00 AM EDT Office Visit [facility] [address] [facility] 110 [place] [phone] Frantz Conley MD [address] [facility] [address] [place] [address] 10/20/2024 11:00 AM EDT Office Visit [facility] [address] [facility] [address] [place] [phone] Roasnna Bautista PA [address] [facility] [address] [place] [address] documented as of this encounter Visit Diagnoses Not on filedocumented in this encounter Additional Health Concerns Assessment Noted Time PHQ-9 Depression Total Score: 0 10/21/19 24 11:00 AM EDT documented as of this encounter Care Teams Tram Operator Relationship Specialty Start Date End Date Frantz Conley MD [address] [facility] 110 [place] [address] PCP - General Internal Medicine 08/08/22 Frantz Conley MD [address] [facility] 110 [place] [address] PCP - ACO Reach 08/16/22 Jazmin Toribio, BLAYNE [address] [place] [address] Telephone Station Repairer Family Medicine 08/04/24 08/07/24 Dang Bosch LPN [address] [facility] 110 [place] [address] 08/07/24 08/07/24 documented as of this encounter
--- OUTSIDE RECORDS SUMMARY | 2024-10-01 08:15 | XMS_ITS | Encounter Summary ---
Author Organization [facility] Address [address] [place] [address] Care Team Providers Care Studio Technician Name Role Phone Frantz Conley MD Primary Care Provider [phone] Frantz Conley MD Unavailable [phone] Jazmin Toribio DROP CREW LABORER Unavailable [phone] Dang Bosch LPN Unavailable Encounter Details Date Type Department Care Team (Late st Contact Info) Description 10/22/2023 Abstract [facility] 112 [facility] 110 [place] [address] Frantz Conley MD 112 [facility] 110 [place] [address] Social History Tobacco Use Types [...] any clubs o r organizations such as samaritan groups, unions, fraternal or athletic groups, or [...] Recorded Patient Health Questionnaire-2 Score 0 10/21/2023 [facility] of Occupat ional Health [...] 10/05/2024 11:00 AM EDT Office Visit [facility] [address] [facility] 110 [place] [phone] Frantz Conley MD [address] [facility] [address] [place] [address] 10/20/2024 11:00 AM EDT Office Visit [facility] [address] [facility] [address] [place] [address] Rosanna Bautista PA [address] [facility] [address] [place] [address] documented as of this encounter Visit Diagnoses Not on filedocumented in this encounter Additional Health Concerns Assessment Noted Time PHQ-9 Depression Total Score: 0 10/21/19 24 11:00 AM EDT documented as of this encounter Care Teams Studio Technician Relationship Specialty Start Date End Date Frantz Conley MD [address] [facility] 110 [place] [address] PCP - General Internal Medicine 08/08/22 Frantz Conley MD [address] [facility] 110 [place] [address] PCP - ACO Reach 08/16/22 Jazmin Toribio, BLAYNE [address] [place] [address] Agricultural Engineering Technicians Family Medicine 08/04/24 08/07/24 Dang Bosch LPN [address] [facility] 110 [place] [address] 08/07/24 08/07/24 documented as of this encounter
--- OUTSIDE RECORDS SUMMARY | 2024-10-01 08:15 | XMS_ITS | Encounter Summary ---
Author Organization [facility] Address [address] [place] [address] Care Team Providers Care Sed Middle School Teacher Name Role Phone Frantz Conley MD Primary Care Provider [phone] Frantz Conley MD Unavailable [phone] Jazmin Toribio WOOL SHEARING SUPERVISOR Unavailable [phone] Dang Bosch LPN Unavailable Encounter Details Date Type Department Care Team (Late st Contact Info) Description 10/24/2023 Abstract [facility] 112 [facility] 110 [place] [address] Frantz Conley MD 112 [facility] [place] 110 [place] [address] Social History Tobacco Use Types [...] How often do you attend chur or methodist services? More than 4 times per year 04/15/2023 Do you belong to any clubs o r organizations such as restoration groups, unions, fraternal or athletic groups, or [...] 10/05/2024 11:00 AM EDT Office Visit [facility] [address] [facility] 110 [place] [phone] Frantz Conley MD [address] [facility] [address] [place] [address] 10/20/2024 11:00 AM EDT Office Visit [facility] [address] [facility] [address] [place] [address] Rosanna Bautista PA [address] [facility] [address] [place] [address] documented as of this encounter Visit Diagnoses Not on filedocumented in this encounter Additional Health Concerns Assessment Noted Time PHQ-9 Depression Total Score: 0 10/21/19 24 11:00 AM EDT documented as of this encounter Care Teams Sed Middle School Teacher Relationship Specialty Start Date End Date Frantz Conley MD [address] [facility] 110 [place] [address] PCP - General Internal Medicine 08/08/22 Frantz Conley MD [address] [facility] 110 [place] [address] PCP - ACO Reach 08/16/22 Jazmin Toribio, BLAYNE [address] [place] [address] Computer Lab Aide Family Medicine 08/04/24 08/07/24 Dang Bosch LPN [address] [facility] 110 [place] [address] 08/07/24 08/07/24 documented as of this encounter
--- OUTSIDE RECORDS SUMMARY | 2024-10-01 08:15 | XMS_ITS | Encounter Summary ---
Author Organization [facility] Address [address] [place] [address] Care Team Providers Care Metallurgical Tester Name Role Phone Frantz Conley MD Primary Care Provider [phone] Frantz Conley MD Unavailable [phone] Jazmin Toribio MAINS AND SERVICE SUPERVISOR Unavailable [phone] Dang Bosch LPN Unavailable Encounter Details Date Type Department Care Team (Late st Contact Info) Description 11/13/2023 Orders Only [facility] [address] [facility] [address] [place] [address] Franchesca Lewis LPN [address] [place] [address] Pancytopenia, acquired ([facility]) Social History Tobacco Use Types Packs/Day Years [...] How often do you attend chur or protestant services? More than 4 times per year [...] Recorded Patient Health Questionnaire-2 Score 0 10/21/2023 [facility] of Occupat ional Health - Occupational [...] 10/05/2024 11:00 AM EDT Office Visit [facility] [address] [facility] 110 [place] [phone] Frantz Conley MD [address] [facility] 110 [place] [address] 10/20/2024 11:00 AM EDT Office Visit [facility] [address] [facility] 110 [place] [phone] Rosanna Bautista PA [address] [facility] 110 [place] [address] documented as of this encounter Visit Diagnoses Diagnosis Pancytopenia, acquired ([facility]-HCC) Pancytopenia documented in this encounter Additional Health Concerns Assessment Noted Time PHQ-9 Depression Total Score: 0 10/21/19 24 11:00 AM EDT documented as of this encounter Care Teams Metallurgical Tester Relationship Specialty Start Date End Date Frantz Conley MD [address] [facility] 110 [place] [address] PCP - General Internal Medicine 08/08/22 Frantz Conley MD [address] [facility] 110 [place] [address] PCP - ACO Reach 08/16/22 Jazmin Toribio, BLAYNE [address] [place] [address] Employee Relations Advisor Family Medicine 08/04/24 08/07/24 Dang Bosch LPN [address] [facility] 110 [place] [address] 08/07/24 08/07/24 documented as of this encounter
[2024-10-01 08:56] LABS: Alanine Aminotransferase 51 U/L (16-63); Anion Gap 13.1; Aspartate Amino Transferase 46 U/L (15-37); Blood Urea Nitrogen 17.0 mg/dL (7.0-18.0); Calcium 9.0 mg/dL (8.5-10.1); Carbon Dioxide 26.2 mmol/L (21.0-32.0); Chloride 111 mmol/L (98-107); Cholesterol 113 mg/dL (<=200); Estimated GFR (African America >60 (>=60 mL/min/1.73m^2); Estimated GFR (Non-African Ame >60 (>=60 mL/min/1.73m^2); Glucose 106 mg/dL (74-106); HDL Cholesterol 60 mg/dL (40-60); Potassium 4.3 mmol/L (3.5-5.1); Sodium 146 mmol/L (136-145); Triglycerides 58 mg/dL (<=150); VLDL CHOLESTEROL 11.6 mg/dL
== END 2024-10-01 08:07 | disposition home or self-care (01) ==
LOC: LAB 08:10
PROVIDERS: PCP Internal Medicine; Visit Provider Internal Medicine Cardiovascular Disease
DX: E78.5 Hyperlipidemia, unspecified (principal); I25.10 Atherosclerotic heart disease of native coronary artery without angina pectoris
CPT/HCPCS: 36415; 80048; 80061; 84450; 84460

== ENCOUNTER 2024-10-08 07:24 | Outpatient (RCR) | payer MEDICARE, OTHER, SELFPAY ==
[2024-10-08 08:38] VITALS: BP 104/56; PULSE 55; TEMP 36.2; O2SAT 96
[2024-10-08] MEDS: FERRIC CARBOXYMALTOSE 750 MG in 0.9 % SODIUM CHLORIDE 250 ML 795 MG IV (08:53)
--- NOTE | 2024-10-08 08:54 | PC.NURSE ---
Iv Injectofer initiated at this time. Pillow provided for comfort.
== END 2024-10-22 23:59 | disposition home or self-care (01) ==
LOC: HEMC 07:24
PROVIDERS: PCP Internal Medicine; Visit Provider Internal Medicine Hematology & Oncology
DX: D64.9 Anemia, unspecified (principal); D50.9 Iron deficiency anemia, unspecified; D50.0 Iron deficiency anemia secondary to blood loss (chronic); K90.9 Intestinal malabsorption, unspecified; D72.819 Decreased white blood cell count, unspecified; D69.6 Thrombocytopenia, unspecified; Z90.49 Acquired absence of other specified parts of digestive tract; Z95.5 Presence of coronary angioplasty implant and graft; I25.10 Atherosclerotic heart disease of native coronary artery without angina pectoris
CPT/HCPCS: 96365; G0463; J1439

== ENCOUNTER 2024-12-07 09:36 | Outpatient (OUT) | payer MEDICARE, OTHER, SELFPAY ==
--- OUTSIDE RECORDS SUMMARY | 2024-12-07 09:54 | XMS_ITS | CCD ---
Author Organization [facility] Care Team Providers Care Program Research Specialist Name Role Phone Zahler, Hardeep Unavailable Unavailable [...] FRANTZ CONLEY Primary Care Unavailable JARVIS, DR WAGNER Admitting Unavailable JARVIS, DR WAGNER Attending Unavailable JARVIS, DR WAGNER Consulting Unavailable MICK BRANCH Attending Unavailable MICK BRANCH Consulting Unavailable JARVIS, DR WAGNER Primary Care Unavailable MICK BRANCH Admitting Unavailable ELMICHAELHAWJuana, DR CARVAJAL Admitting Unavailable ELLEANN, DR CARVAJAL Attending Unavailable ELLEANN, DR CARVAJAL Consulting Unavailable DR FRANTZ CONLEY Primary Care Unavailable LIBBY Conley Primary Care Provider [phone] MD Mick Branch Attending Provider [phone] LIBBY Conley Attending Provider [phone] LIBBY Conley Primary Care Provider LIBBY Conley Referring Provider MD Zoila Castorena Attending Provider [phone] MD Mick Branch Attending Provider MD Jose Manning Attending Provider Frantz Conley MD Primary Care Provider Frantz Conley MD Unavailable MD Jose Manning Attending Provider LIBBY Conley Primary Care Provider LIBBY Conley Attending Provider Frantz Conley MD Primary Care Provider LIBBY Conley Primary Care Provider [phone] MD Mick Branch Attending Provider Jarvis IIFrantz Primary Care Provider [phone] Mick Branch MD Attending Provider CRESCENCIO MARIN Attending Unavailable CRESCENCIO MARIN Referring Unavailable FRANTZ CONLEY Primary Care Unavailable CRESCENCIO MARIN Attending Unavailable CRESCENCIO MARIN Referring Unavailable RFANTZ CONLEY Primary Care Unavailable FRANTZ CONLEY Attending Unavailable ROSANNA DALY Attending Unavailable FRANTZ CONLEY Attending Unavailable Frantz Conley II Primary Care Provider Mick Branch MD Attending Provider Frantz Conley Primary Care Unavailable Mick Branch Admitting Unavailable Mick Branch Attending Unavailable Frantz Conley Primary Care Unavailable Mick Branch Admitting Unavailable Mick Branch Attending Unavailable Mick Branch Admitting Unavailable Mick Branch Attending Unavailable Frantz Conley Primary Care Unavailable Medications Current Medications Medication Drug Class(es) Dates Sig (Normalized) Sig (Original) atorvastatin 20 mg oral tablet (20 sources) HMG-CoA Reductase Inhibitor Start: 04-26-2021 End: 04-22-2025 take 1 tablet by mouth once daily in the morning Atorvastatin 20 mg tablet Active 20 MG PO Every morning April 26, 2021 1:00am Complies with drug therapy clopidogrel 75 mg oral tablet (20 sources) [id number] Platelet Inhibitor Start: 04-05-2023 take 1 tablet by mouth once daily clopidogrel (Plavix) 75 MG tablet Indications: PVCs (premature ventricular contractions) Take 1 tablet (75 mg) by mouth Daily 90 tablet 3 08/27/2024 Active Start: 08-22-2021 End: 08-17-2021 take 1 tablet by mouth once daily clopidogrel (PLAVIX) 75 MG tablet Take 1 tablet by mouth daily 30 tablet 3 08/22/2021 08/17/2021 Discontinued (REORDER) Start: 08-22-2021 take 1 tablet by [facility] once daily clopidogrel (PLAVIX) 75 MG tablet Take 1 tablet by mouth daily 30 tablet 3 08/22/2021 Active Start: 04-26-2021 End: 08-17-2021 take 1 tablet by mouth once daily in the morning Clopidogrel 75 mg tablet Active 75 MG PO Every morning April 26, 2021 1:00am Complies with drug therapy docosahexaenoic acid 120 mg / eicosapentaenoic acid 180 mg oral capsule (4 sources) take 1 capsule by mo uth once daily fish oil concentrate (Alexander-3) 120-180 mg capsule Take 1 capsule (1,000 mg) by mouth once daily. Active take 1 capsule by mouth three ti mes daily Alexander-3 Fatty Acids (FISH OIL) 1000 MG CAPS Take 1,000 mg by mouth 3 times daily 0 Active ferrous gluconate 240 mg oral tablet (2 sources) take 1 tablet by mouth once daily Ferrous Gluconate (iron) 240 (27 Fe) MG tablet Take 1 tablet by mouth Daily Active Fish Oils (3 sources) Fish Oil 1000 MG DAILY Active levothyroxine sodium 0.088 mg oral tablet (20 sources) l-Thyroxine Start: 05-14-2023 take 1 tablet by mouth once daily Levothyroxine 88 mcg tablet Active 88 MCG PO Daily October 09, 2023 12:00am Complies with drug therapy Start: 04-26-2021 End: 10-09-2023 take 1 tablet by mouth once daily in the morning Levothyroxine 100 mcg tablet Discontinued 100 MCG PO Every morning April 26, 2021 1:00am October 09, 2023 8:44am take 1 tablet by [facility] once daily in the morning Synthroid 100 MCG 1 tablet in the morning on an empty stomach Orally Once a day Active Multiple Vitamins-Minerals ( ONE DAILY ADULTS 50+ PO) (16 sources) take 1 tablet by mouth once [...] 1 tablet Orally Once a day Active Multivitamin Tablet (4 sources) Start: 04-26-2021 take 1 tablet by mouth once daily in the morning Multivitamin Tablet Active 1 TAB PO Every morning April 26, 2021 1:00am Complies with drug therapy Start: 04-26-2021 take 1 tablet by [facility] once daily in the morning Start: 04-26-2021 take 1 tablet by [facility] once daily in the morning Multivitamin Tablet Active 1 TAB PO Every morning April 26, 2021 12:00am multivitamin with minerals tablet (3 sources) take 1 tablet by [facility] once daily multivitamin with minerals tablet Take 1 tablet by mouth once daily. Active take 1 tablet by mouth once emma y multivitamin with minerals tablet Take 1 tablet by mouth once daily. 0 Active Alexander 3-Bbj-Zip-Fish Oil (Fish Oil) 1,000 mg (120 mg-180 mg) Capsule (13 sources) Start: 04-26-2021 take 1 capsule by mouth three times daily Alexander 3-Nxs-Jeo-Fish Oil (Fish Oil) 1,000 mg (120 mg-180 mg) Capsule Active 1 CAP PO Three times daily April 26, 2021 1:00am Complies with drug therapy Start: 04-26-2021 take 1 capsule by [facility] three times daily Start: 04-26-2021 take 1 capsule by [facility] three times daily Alexander 6-Ykk-Epj-Fish Oil (Fish Oil) 1,000 mg (120 mg-180 mg) Capsule Active 1 CAP PO Three times daily April 26, 2021 12:00am Start: 04-26-2021 take 1 capsule by [facility] three times daily Alexander 4-Kpc-Esy-Fish Oil (Fish Oil) 1,000 mg (120 mg-180 mg) Capsule Active 1 CAP PO Three times daily April 26, 2021 1:00am Alexander-3 Fatty Acids (Fish Oil) 1000 MG capsule delayed-release (16 sources) Start: 09-13-2014 take 1 capsule by mouth once daily Alexander-3 Fatty Acids (Fish Oil) 1000 MG capsule delayed-release Take 1 capsule by mouth 1 (one) time each day. 09/13/2014 Active Start: 09-13-2014 take 1 capsule by [facility] once daily Alexander-3 Fatty Acids (Fish Oil) 1000 MG capsule delayed-release Take 1 capsule by mouth 1 (one) time each day. 0 09/13/2014 Active ondansetron (ZOFRAN-ODT) disintegrating tablet 4 mg (1 source) Start: 08-16-2021 ondansetron (ZOFRAN-ODT) disintegrating tablet 4 mg tiZANidine 4 mg oral tablet (20 sources) Central alpha-2 Adrenergic Agonist Start: 06-08-2024 tiZANidine (Zanaflex ) 4 MG tablet Indications: Muscle cramps TAKE 1 TABLET DAILY AT NIGHT TIME NEEDED 90 tablet 3 06/08/2024 Active Start: 04-18-2023 take 1 tablet by [facility] twice daily as needed Tizanidine 4 mg tablet Active 4 MG PO Twice daily as needed for muscle spasticity October 09, 2023 12:00am [employer] tablet as needed Orally bid prn; Note: Source Status: Taking; Provider: Sarina Barton ( ) Complies with drug therapy Start: 04-18-2023 tiZANidine (Za naflex) 4 MG tablet Indications: Muscle cramps TAKE 1 TABLET DAILY AT NIGHT TIME NEEDED 90 tablet 3 04/18/2023 Active Start: 04-26-2021 End: 08-08-2022 take 1 tablet by mouth once daily at bedtime Tizanidine 4 mg tablet Discontinued 4 MG PO Daily at bedtime [...] / HYDROcodone bitartrate 5 mg oral tablet (13 sources) Opioid Agonist Start: 05-10-2021 End: 09-19-2021 take 1 tablet by mouth every six hours as needed for pain Hydrocodone-Acetami nophen 5-325 mg tablet Discontinued 1 TAB PO Q6H as needed for pain 30 7 May 10, 2021 September 19, 2021 11:42am aspirin 81 mg delayed release oral tablet (20 sources) Platelet Aggregation Inhibitor, Nonsteroidal Anti-inflammatory Drug Start: 04-26-2021 End: 09-17-2023 take 1 tablet by mouth once daily in the morning Aspirin 81 mg Tablet,Delayed Release (Dr/Ec) Discontinued 81 MG PO Every morning April 26, 2021 1:00am September 17, 2023 11:09am take 1 tablet by mouth once emma y aspirin 81 MG chewable tablet Take 81 mg by mouth daily 0 Active carvedilol 3.125 mg oral tablet (20 sources) alpha-Adrenergic Alfredo, beta-Adrenergic Alfredo Start: 10-23-2023 End: 11-11-2024 take 1 tablet by mouth twice daily at mealtime Carvedilol 3.125 mg tablet Discontinued 3.125 MG PO Twice daily 60 30 April 30, 2024 2:13pm November 11, 2024 1:37pm must administer with a meal/food ferrous sulfate 325 mg oral tablet (2 sources) End: 10-20-2024 take 1 tablet by mouth at mealtime ferrous sulfate 325 (65 Fe) MG tablet Take 325 mg by mouth in the morning. Take with meals. 10/20/2024 Discontinued (Other) meclizine hydrochloride 25 mg oral tablet (9 sources) Antiemetic Start: 09-17-2023 End: 10-09-2023 take 1 tablet by mouth once daily Meclizine 25 mg tablet Discontinued 25 MG PO Daily September 17, 2023 12:00am October 09, 2023 8:46am take 1 tablet by [facility] every twenty-four hours Meclizine HCl 25 MG 1 tablet Orally once a day Active omeprazole 40 mg delayed release oral capsule (20 sources) Proton Pump Inhibitor Start: 12-05-2023 End: 04-30-2024 take 1 capsule by mouth once daily Omeprazole 40 mg capsule,delayed release(DR/EC) Discontinued 40 MG PO Daily April 30, 2024 2:14pm April 30, 2024 2:25pm Start: 04-26-2021 End: 04-30-2024 take 1 capsule by mouth twice daily as needed for gastroesophageal reflux disease Omeprazole 40 mg capsule,delayed release(DR/EC) Discontinued 40 MG PO Twice daily as needed for Heartburn September 17, 2023 11:10am April 30, 2024 2:21pm take 1 capsule by mouth once jamel ly omeprazole (PRILOSEC) 40 MG delayed release capsule Take 40 mg by mouth daily 0 Active pantoprazole 40 mg delayed release oral tablet (1 source) Proton Pump Inhibitor Start: 08-17-2021 take 40 mg by mouth once daily before breakfast 40 mg, Oral, DAILY BEFORE BREAKFAST, First dose on Sat08/17/21 at 0730, Until Discontinued Do not crush or break. Substituted for Omeprazole (PRILOSEC). polyethylene glycol 3350 75085 mg powder for oral solution (1 source) [...] Problem Classification Problem Date Documented Date Episodic/Chronic Administrative/social admission (2 sources) Patient encounter status; Translations: [Other specified counseling] 10-20-2024 Episodic Anxiety disorders (18 sources) Anxiety; Translations: [Other specified anxiety disorders] Onset: 08-13-2022 08-13-2022 Chronic Aortic; peripheral; and visceral artery aneurysms (20 sources) Thoracic aortic aneurysm, without rupture; Translations: [Dilatation of aorta] Onset: 11-08-2021 Chronic Biliary tract disease (20 sources) Calculus of gallbladder without cholecystitis without obstruction; Translations: [Calculus of gallbladder with cholecystitis] Onset: 02-07-2021 Resolved: 10-21-2023 05-10-2021 Episodic Cardiac dysrhythmias (20 sources) Multiple premature ventricular complexes; Translations: [Ventricular premature depolarization] Onset: 08-13-2022 08-13-2022 Chronic Cardiac dysrhythmias (12 sources) Bradycardia; Translations: [Bradycardia, unspecified] Onset: 01-01-2024 01-01-2024 Episodic Coronary atherosclerosis and other heart disease (20 sources) Old myocardial infarction; Translations: [Coronary arteriosclerosis] Onset: 02-07-2021 08-13-2022 Chronic Deficiency and other anemia (20 sources) Acquired pancytopenia; Translations: [Other pancytopenia] Onset: 04-22-2023 08-08-2022 Chronic Deficiency and other anemia (4 sources) Other pancytopenia; Translations: [Other pancytopenia] 09-28-2022 Chronic Deficiency and other anemia (20 sources) Iron deficiency anemia; Translations: [Iron deficiency anemia, unspecified] Onset: 05-08-2023 05-08-2023 Episodic Deficiency and other anemia (2 sources) Iron deficiency anemia, unspecified; Translations: [Iron deficiency anemia, unspecified] 04-30-2024 Episodic Disorders of lipid metabolism (20 sources) Hypertriglyceridemia; 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] Onset: 08-13-2022 08-13-2022 Chronic Diverticulosis and diverticulitis (18 sources) Diverticulosis of colon; Translations: [Diverticulosis of large intestine without perforation or abscess without bleeding] Onset: 08-13-2022 08-13-2022 Chronic E Codes: Struck by; against (1 source) Striking against or struck by other objects, initial encounter; Translations: [STRIKING AGNST/STRUCK OTH OBJ INIT] Onset: 08-18-2021 Episodic Esophageal disorders (20 sources) Gastroesophageal reflux disease; Translations: [Gastro-esophageal reflux disease without esophagitis] Onset: 08-13-2022 08-13-2022 Chronic Essential hypertension (20 sources) Benign essential hypertension; Translations: [Essential (primary) hypertension] Onset: 09-17-2022 04-22-2023 Chronic Hepatitis (20 sources) Nonalcoholic steatohepatitis; Translations: [Nonalcoholic steatohepatitis (PLASCENCIA)] Onset: 09-13-2021 Resolved: 09-13-2021 Chronic Hypertension with complications and secondary hypertension (18 sources) Hypertensive heart AND chronic kidney disease with congestive heart failure; Translations: [Hypertensive heart and chronic kidney disease with heart failure and stage 1 through stage 4 chronic kidney disease, or unspecified chronic kidney disease] Onset: 09-17-2022 04-22-2023 Chronic Immunizations and screening for infectious disease (2 sources) Needs influenza immunization; Translations: [Encounter for immunization] 03-12-2024 Episodic Intracranial injury (5 sources) Subarachnoid hemorrhage due to traumatic injury; Translations: [Traumatic subarachnoid hemorrhage without loss of consciousness, initial encounter] Onset: 08-18-2021 Episodic Miscellaneous mental health disorders (18 sources) Chronic insomnia; Translations: [Psychophysiologic insomnia] Onset: 08-13-2022 08-13-2022 Chronic Nutritional deficiencies (18 sources) Vitamin D deficiency; Translations: [Vitamin D deficiency, unspecified] Onset: 08-13-2022 08-13-2022 Chronic Open wounds of head; neck; and trunk (3 sources) Facial laceration ; Translations: [Laceration without foreign body of other part of head, initial encounter] Onset: 08-18-2021 Episodic Other acquired deformities (18 sources) Spondylolysis of cervical spine; Translations: [Spondylolysis, cervical region] Onset: 08-13-2022 08-13-2022 Episodic Other aftercare (1 source) shelter (current) use of aspirin; Translations: [ARCHITECTURAL TECHNICIAN CURRENT USE OF ASPIRIN] Onset: 08-18-2021 Episodic Other aftercare (1 source) shelter (current) use of antithrombotics/antipl atelets; Translations: [SHELTER ANTITHROMBOT/ANTIPLATL ETS] Onset: 08-18-2021 Episodic Other and ill-defined heart disease (4 sources) Diastolic dysfunction; Translations: [Other ill-defined heart diseases] Onset: 10-20-2024 10-20-2024 Chronic Other connective tissue disease (18 sources) Cramp; Translations: [Cramp and spasm] Onset: 08-13-2022 08-13-2022 Episodic Other disorders of stomach and duodenum (4 sources) Vascular ectasia of gastric antrum; Translations: [Angiodysplasia of stomach and duodenum without bleeding] 04-30-2024 Episodic Other disorders of stomach and duodenum (3 sources) Angiodysplasia of stomach and duodenum without bleeding; Translations: [Angiodysplasia of stomach and duodenum without mention of hemorrhage] Onset: 11-02-2024 04-30-2024 Episodic Other injuries and conditions due to external causes (3 sources) Unspecified injury of head, initial encounter; Translations: [UNSPECIFIED INJURY HEAD INITIAL ENC] Onset: 08-16-2021 Episodic Other liver diseases (7 sources) Cirrhosis of liver; Translations: [Other cirrhosis of liver] Onset: 08-13-2022 08-13-2022 Chronic Other liver diseases (16 sources) Unspecified cirrhosis of liver; Translations: [Cirrhotic] Onset: 07-11-2021 Resolved: 07-11-2021 Chronic Other liver diseases (2 sources) Non-alcoholic fatty liver; Translations: [Fatty (change of) liver, not elsewhere classified] Chronic Other liver diseases (20 sources) Fatty (change of) liver, not elsewhere classified; Translations: [Other chronic nonalcoholic liver disease] Onset: 09-13-2021 Resolved: 10-21-2023 Chronic Other liver diseases (1 source) Other cirrhosis of liver Onset: 09-13-2021 Resolved: 09-13-2021 Chronic Other liver diseases (9 sources) Cirrhosis - non-alcoholic; Translations: [Unspecified cirrhosis of liver] 09-17-2023 Chronic Other nervous system disorders (18 sources) Chronic pain; Translations: [Other chronic pain] Onset: 08-13-2022 08-13-2022 Chronic Other nervous system disorders (18 sources) Unsteady when standing; Translations: [Unsteadiness on feet] Onset: 08-13-2022 08-13-2022 Episodic Other nutritional; endocrine; and metabolic disorders (2 sources) Body mass index 30+ - obesity; Translations: [Body mass index (BMI) 30.0-30.9, adult] Onset: 09-08-2024 09-08-2024 Chronic Other nutritional; endocrine; and metabolic disorders (2 sources) Body mass index (BMI) 30.0-30.9, adult; Translations: [Body mass index (BMI) 30.0-30.9, adult] Onset: 09-08-2024 Chronic Other nutritional; endocrine; and metabolic disorders (7 sources) Overweight in adulthood with body mass index of 25 or more but less than 30; Translations: [Body mass index (BMI) 29.0-29.9, adult] Onset: 01-01-2024 01-01-2024 Episodic Other screening for suspected conditions (not mental disorders or infectious disease) (20 sources) Liver function tests abnormal; Translations: [Other specified abnormal findings of blood chemistry] Onset: 08-13-2022 08-13-2022 Episodic Pulmonary heart disease (4 sources) Secondary pulmonary hypertension; Translations: [Other secondary pulmonary hypertension] Onset: 10-20-2024 10-20-2024 Chronic Screening and history of mental health and substance abuse codes (20 sources) Personal history of nicotine dependence; Translations: [Ex-cigarette smoker] Onset: 08-18-2021 06-20-2023 Episodic Superficial injury; contusion (1 source) Contusion of other part of head, initial encounter; Translations: [CONTUS OTH PRT HEAD INITIAL ENCNTR] Onset: 08-18-2021 Episodic Thyroid disorders (20 sources) Hypothyroidism, unspecified; Translations: [Acquired hypothyroidism] Onset: 08-18-2021 08-13-2022 Chronic Unclassified (4 sources) CONTACT W/AND (SUSP) EXPOS COVID-19; Translations: [CONTACT W/AND (SUSP) EXPOS COVID-19] Onset: 04-10-2021 Unclassified (1 source) COUGH, UNSPECIFIED; Translations: [COUGH, UNSPECIFIED] Onset: 04-10-2021 Past or Other Problems Problem Classification Problem Date Documented Da te Episodic/Chronic Abdominal pain (17 sources) Right upper quadrant pain; Translations: [Right upper quadrant pain] Onset: 02-07-2021 Resolved: 10-21-2023 08-13-2022 Episodic Acute cerebrovascular disease (18 sources) Hemorrhage into subarachnoid space of neuraxis; Translations: [Nontraumatic subarachnoid hemorrhage, unspecified] Onset: 08-16-2021 Resolved: 10-21-2023 Chronic Coronary atherosclerosis and other heart disease (3 sources) Presence of coronary angioplasty implant and graft; Translations: [PRESENCE COR ANGPLSTY IMPLANT AND GRAFT] Onset: 02-07-2021 Episodic Mood disorders (13 sources) Mood disorders Onset: 10-21-2023 Resolved: 10-20-2024 10-21-2023 Mycoses (16 sources) Onychomycosis due to dermatophyte ; Translations: [Tinea unguium] Onset: 08-13-2022 Resolved: 10-20-2024 08-13-2022 Episodic Other aftercare (1 source) Other predatory animal 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 (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 therapy; Translations: [OTH SHELTER CURRENT DRUG THERAPY] Onset: 02-07-2021 Episodic Other disorders of stomach and duodenum (16 sources) Indigestion; Translations: [Functional dyspepsia] Onset: 08-13-2022 Resolved: 10-20-2024 08-13-2022 Episodic Other lower respiratory disease (3 sources) Pleurodynia; Translations: [PLEURODYNIA] Onset: 02-03-2021 Episodic Other nutritional; endocrine; and metabolic disorders (2 sources) Body mass index (BMI) 29.0-29.9, adult; Translations: [Body mass index (BMI) 29.0-29.9, adult] Onset: 01-01-2024 Episodic Unclassified (1 source) CONTACT W/AND (SUSP) EXPOS COVID-19; Translations: [CONTACT W/AND (SUSP) EXPOS COVID-19] Onset: 03-01-2021 Unclassified (3 sources) Onset: 06-20-2023 Resolved: 09-08-2024 06-20-2023 Results Test Name Value Interpretation Reference Range Facility Alanine aminotransferase [En zymatic activity/volume] in Serum or PlasmaOrdered By: Mick Branch on 11-02-2024 ALT [Catalytic activity/Vol] 52 U/L Normal 7-52 [facility] Comment on above: Performed By: #### C MP, CBC, PT #### [facility] [address] [place] [address] Albumin [Mass/volume] in Ser um or Plasma by Bromocresol green (BCG) dye binding methoOrdered By: Mick Branch on 11-02-2024 Albumin BCG dye [Mass/Vol] 3.1 g/dL Low 3.5-5.7 [facility] Alkaline phosphatase [Enzyma tic activity/volume] in Serum or PlasmaOrdered By: Mick Branch on 11-02-2024 ALP [Catalytic activity/Vol] 124 U/L High 34-104 [facility] Comment on above: Result Comment: PERF ORMED BY: [place] [address] PATHOLOGIST OPTOMETRIC ASSISTANT GUERA MARROQUIN M.D. Performed By: #### C MP, CBC, PT #### [facility] [address] [place] [address] Aspartate aminotransferase [ Enzymatic activity/volume] in Serum or PlasmaOrdered By: Mick Branch on 11-02-2024 AST [Catalytic activity/Vol] 58 U/L High 13-39 [facility] Comment on above: Performed By: #### C MP, CBC, PT #### [place] [address] [place] Basophils [#/volume] in Bloo d by Automated countOrdered By: Mick Branch on 11-02-2024 Basophils (Bld) [#/Vol] 0.0 10*3/uL Normal 0.0-0.2 [facility] Comment on above: Result Comment: PERF ORMED BY: [place] [address] PATHOLOGIST OPTOMETRIC ASSISTANT GUERA MARROQUIN M.D. Performed By: #### C MP, CBC, PT #### [address] Basophils/100 leukocytes in Blood by Automated countOrdered By: Mick Branch on 11-02-2024 Basophils/100 WBC (Bld) 0.8 % Normal . [facility] Comment on above: Performed By: #### C MP, CBC, PT #### [address] Bilirubin.total [Mass/volume ] in Serum or PlasmaOrdered By: Mick Branch on 11-02-2024 Bilirubin [Mass/Vol] 0.9 mg/dL Normal 0.3-1.0 [facility] Comment on above: Performed By: #### C MP, CBC, PT #### [address] Calcium [Mass/volume] in Ser um or PlasmaOrdered By: Mick Branch on 11-02-2024 Calcium [Mass/Vol] 7.9 mg/dL Low 8.6-10.3 [facility] Comment on above: Performed By: #### C MP, CBC, PT #### [place] [address] [place] Carbon dioxide, total [Moles /volume] in Serum or PlasmaOrdered By: Mick Branch on 11-02-2024 CO2 [Moles/Vol] 29.1 mmol/L Normal 21.0-31.0 [facility] Comment on above: Performed By: #### C MP, CBC, PT #### [place] [address] [place] Chloride [Moles/volume] in S lilly or PlasmaOrdered By: Mick Branch on 08-11-2025 Chloride [Moles/Vol] 110 mmol/L High 98-107 [facility] Comment on above: Performed By: #### C MP, CBC, PT #### [facility] [address] Complete Blood Count Auto Di ffon 11-02-2024 Mean Corpuscular HGB Conc 33.5 g/dL Normal 32.5-35.6 [facility] Comment on above: Performed By: #### C MP, CBC, PT #### [facility] [address] NRBC% 0.0 /100{WBC} Normal 0-0.5 [facility] Comment on above: Performed By: #### C MP, CBC, PT #### [address] White Blood Count 3.0 [CFU]/mL Low 4.1-10.5 [facility] Comment on above: Performed By: #### C MP, CBC, PT #### [address] Comprehensive Metabolic Pane ross 11-02-2024 Albumin [Mass/Vol] 3.1 g/dL Low 3.5-5.7 [facility] Comment on above: Performed By: #### C MP, CBC, PT #### [address] GFR/1.73 sq M.predicted MDRD (S/P/Bld) [Vol rate/Area] mL/min/{1.73_m2} Normal [facility] Comment on above: Performed By: #### C MP, CBC, PT #### [facility] [address] [place] [address] Creatinine [Mass/volume] in Serum or PlasmaOrdered By: Mick Branch on 11-02-2024 Creatinine [Mass/Vol] 0.71 mg/dL Normal 0.70-1.30 [facility] Comment on above: Performed By: #### C MP, CBC, PT #### [facility] [address] [place] [address] Eosinophils [#/volume] in Bl ood by Automated countOrdered By: Mick Branch on 11-02-2024 Eosinophils (Bld) [#/Vol] 0.1 10*3/uL Normal 0.0-0.45 [facility] Comment on above: Performed By: #### C MP, CBC, PT #### [facility] [address] Eosinophils/100 leukocytes i n Blood by Automated countOrdered By: Mick Branch on 11-02-2024 Eosinophils/100 WBC (Bld) 1.8 % Normal . [facility] Comment on above: Performed By: #### C MP, CBC, PT #### [facility] [address] Erythrocyte distribution wid th [Ratio] by Automated countOrdered By: Mick Branch on 11-02-2024 Erythrocyte distribution width (RBC) [Ratio] 16.4 % High 12.0-14.8 [facility] Comment on above: Performed By: #### C MP, CBC, PT #### [facility] [address] Erythrocytes [#/volume] in B lood by Automated countOrdered By: Mick Branch on 11-02-2024 RBC (Bld) [#/Vol] 3.58 10*6/uL Low 3.90-5.60 [facility] Comment on above: Performed By: #### C MP, CBC, PT #### [facility] [address] Glucose [Mass/volume] in Ser um or PlasmaOrdered By: Mick Branch on 11-02-2024 Glucose [Mass/Vol] 120 mg/dL High 70-100 [facility] Comment on above: ADA recommended refe rence rangeRandom Glucose Reference Range is dependent on time and content of last meal. Glucose of more than 200 mg/dL in a nonstressed, ambulatory subject supports the diagnosis of Diabetes Mellitus. Result Comment: [place] Glucose Reference Range is dependent on time and content of last meal. Glucose of more than 200 mg/dL in a nonstressed, ambulatory subject supports the diagnosis of Diabetes Mellitus. ADA recommended reference range Performed By: #### C MP, CBC, PT #### [address] Hematocrit [Volume Fraction] of Blood by Automated countOrdered By: Mick Branch on 11-02-2024 Hematocrit (Bld) [Volume fraction] 34.1 % Low 38.8-50.0 [facility] Comment on above: Performed By: #### C MP, CBC, PT #### [address] Hemoglobin [Mass/volume] in BloodOrdered By: Mick Branch on 11-02-2024 Hemoglobin (Bld) [Mass/Vol] 11.4 g/dL Low 13.0-17.0 [facility] Comment on above: Performed By: #### C MP, CBC, PT #### [address] INR in Platelet poor plasma by Coagulation assayOrdered By: Mick Branch on 11-02-2024 INR Coag (PPP) [Relative time] 1.2 {INR} Normal [facility] Comment on above: INR Therapeutic [...] heart valves: 3 - 4.5 PERFORMED BY: [place] [address] PATHOLOGIST OPTOMETRIC ASSISTANT GUERA MARROQUIN M.D. Performed By: #### C MP, CBC, PT #### [address] Leukocytes [#/volume] correc britt for nucleated erythrocytes in Blood by Automated counOrdered By: Mick Branch on 11-02-2024 WBC corrected for nucl RBC Auto (Bld) [#/Vol] 3.0 10*3/uL Low 4.1-10.5 [facility] Leukocytes [#/volume] in Blo od by Automated countOrdered By: Mick Branch on 11-02-2024 WBC (Bld) [#/Vol] 3.0 10*3/uL Low 4.1-10.5 [facility] Comment on above: Performed By: #### C MP, CBC, PT #### [address] Lymphocytes [#/volume] in Bl ood by Automated countOrdered By: Mick Branch on 11-02-2024 Lymphocytes (Bld) [#/Vol] 0.5 10*3/uL Low 1.00-4.8 [facility] Comment on above: Performed By: #### C MP, CBC, PT #### [facility] [address] [place] [address] Lymphocytes/100 leukocytes i n Blood by Automated countOrdered By: Mick Branch on 11-02-2024 Lymphocytes/100 WBC (Bld) 15.8 % Normal . [facility] Comment on above: Performed By: #### C MP, CBC, PT #### [facility] [address] [place] [address] MCH [Entitic mass] by Automa britt countOrdered By: Mick Branch on 11-02-2024 MCH (RBC) [Entitic mass] 31.9 pg Normal 27.5-35.2 [facility] Comment on above: Performed By: #### C MP, CBC, PT #### [address] MCHC Auto (RBC) [Mass/Vol]Or dered By: Mick Branch on 11-02-2024 MCHC (RBC) [Mass/Vol] 33.5 g/dL 32.5-35.6 [facility] MCV [Entitic volume] by Auto mated countOrdered By: Mick Branch on 11-02-2024 MCV (RBC) [Entitic vol] 95.2 fL Normal 83.5-101 [facility] Comment on above: Performed By: #### C MP, CBC, PT #### [place] [address] [place] Monocytes [#/volume] in Bloo d by Automated countOrdered By: Mick Branch on 11-02-2024 Monocytes (Bld) [#/Vol] 0.2 10*3/uL Normal 0.0-0.8 [facility] Comment on above: Performed By: #### C MP, CBC, PT #### [place] [address] [place] Monocytes/100 leukocytes in Blood by Automated countOrdered By: Mick Branch on 11-02-2024 Monocytes/100 WBC (Bld) 6.7 % Normal . [facility] Comment on above: Performed By: #### C MP, CBC, PT #### [place] [address] [place] Neutrophils [#/volume] in Bl ood by Automated countOrdered By: Mick Branch on 11-02-2024 Neutrophils (Bld) [#/Vol] 2.2 10*3/uL Normal 1.8-7.7 [facility] Comment on above: Performed By: #### C MP, CBC, PT #### [place] [address] [place] Neutrophils/100 leukocytes i n Blood by Automated countOrdered By: Mick Branch on 11-02-2024 Neutrophils/100 WBC (Bld) 74.9 % Normal . [facility] Comment on above: Performed By: #### C MP, CBC, PT #### [address] No Panel InformationOrdered By: Mick Branch on 11-02-2024 Estimated GFR (CKD-EPI) > 60.0 mL/Min [facility] Creatinine Clearance (Chem N/A [facility] Nucleated erythrocytes [Pres ence] in Blood by Automated countOrdered By: Mick Branch on 11-02-2024 Nucleated RBC Auto Ql (Bld) 0.0 /100{WBC} 0-0.5 [facility] Platelet mean volume [Entiti c volume] in Blood by Automated countOrdered By: Mick Branch on 11-02-2024 Platelet mean volume (Bld) [Entitic vol] 8.0 fL Normal 6.6-10.1 [facility] Comment on above: Performed By: #### C MP, CBC, PT #### [facility] [address] [place] [address] [place] Platelets [#/volume] in Bloo d by Automated countOrdered By: Mick Branch on 11-02-2024 Platelets (Bld) [#/Vol] 102 10*3/uL Low 150-450 [facility] Comment on above: Performed By: #### C MP, CBC, PT #### [facility] [address] [place] [address] Potassium [Moles/volume] in Serum or PlasmaOrdered By: Mick Branch on 11-02-2024 Potassium [Moles/Vol] 3.9 mmol/L Normal 3.5-5.1 [facility] Comment on above: Performed By: #### C MP, CBC, PT #### [facility] [address] [place] [address] [place] Protein [Mass/volume] in Ser um or PlasmaOrdered By: Mick Branch on 11-02-2024 Protein [Mass/Vol] 5.8 g/dL Low 6.4-8.9 [facility] Comment on above: Performed By: #### C MP, CBC, PT #### [facility] [address] [place] [address] Prothrombin time (PT)Ordered By: Mick Branch on 11-02-2024 PT Coag (PPP) [Time] 13.5 s High 9.0-12.9 [facility] Comment on above: A hematocrit value g reater than 55% may lead to inaccurate results in coagulation testing. Patients having hematocrit values >55% require a special collection tube for coagulation studies. Please contact the laboratory at [phone] for redraw instructions. Result Comment: A he matocrit value greater than 55% may lead to inaccurate results in coagulation testing. Patients having hematocrit values >55% require a special collection tube for coagulation studies. Please contact the laboratory at [phone] for redraw instructions. Performed By: #### C MP, CBC, PT #### [address] Serum globulin measurement b y calculation (mass/volume)Ordered By: Mick Branch on 11-02-2024 Globulin (S) [Mass/Vol] 2.7 g/dL [facility] Comment on above: Performed By: #### C MP, CBC, PT #### [address] Serum or plasma albumin/glob ulin mass ratioOrdered By: Mick Branch on 11-02-2024 Albumin/Globulin [Mass ratio] 1.1 {ratio} [facility] Comment on above: Performed By: #### C MP, CBC, PT #### [address] Serum or plasma anion gap de terminationOrdered By: Mick Branch on 11-02-2024 Anion gap [Moles/Vol] 5.8 mmol/L Low 6.0-15.0 [facility] Comment on above: Performed By: #### C MP, CBC, PT #### [address] Sodium [Moles/volume] in Ser um or PlasmaOrdered By: Mick Branch on 11-02-2024 Sodium [Moles/Vol] 141 mmol/L Normal 136-145 [facility] Comment on above: Performed By: #### C MP, CBC, PT #### [address] Urea nitrogen [Mass/volume] in Serum or PlasmaOrdered By: Mick Branch on 11-02-2024 Urea nitrogen [Mass/Vol] 15 mg/dL Normal 7-25 [facility] Comment on above: Performed By: #### C MP, CBC, PT #### [facility] [address] ALL BASIC METABOLIC PANELon 10-01-2024 Anion gap [Moles/Vol] 13.1 mmol/L [facility] Calcium [Mass/Vol] 9 mg/dL 8.5 - 10. 1 mg/dL [facility] Chloride [Moles/Vol] 111 mmol/L High 98 - 10 7 mmol/L [facility] CO2 [Moles/Vol] 26.2 mmol/L 21.0 - 32.0 mmol/L [facility] Creatinine [Mass/Vol] 0.89 mg/dL 0.70 - 1.30 mg/dL [facility] GFR/1.73 sq M.predicted CKD-EPI (S/P/Bld) [Vol rate/Area] >60 >=60 mL/min/1.7 3m 2 [facility] Glucose [Mass/Vol] 106 mg/dL 74 - 106 mg/dL [facility] Potassium [Moles/Vol] 4.3 mmol/L 3.5 - 5.1 mmol/L [facility] Sodium [Moles/Vol] 146 mmol/L High 136 - 145 mmol/L [facility] TBH EGFR-NON AF MONGOLIAN >60 >=60 mL/min/1.7 3m 2 [facility] Urea nitrogen [Mass/Vol] 17 mg/dL 7.0 - 18.0 mg/dL [facility] Urea nitrogen/Creatinine [Mass ratio] 19.1 mg/mg [facility] ALL LIPID PROFILE (FASTING)o n 10-01-2024 CHOL HDL RATIO 1.9 [facility] Comment on above: 3.3 - 4.4 LOW RISK 4.4 - 7.1 AVERAGE RISK 7.1 - 11.0 MODERATE RISK >11.0 HIGH RISK Cholesterol [Mass/Vol] 113 mg/dL NINF - 200 mg/dL [facility] Cholesterol in HDL [Mass/Vol] 60 mg/dL 40 - 60 mg/dL [facility] Comment on above: > or =60 mg/dl - LOW CARDIOVASCULAR RISK <40 mg/dl - HIGH CARDIOVASCULAR RISK Magnesium [Mass/Vol] 41.4 mg/dL [facility] Comment on above: <100 mg/dl OPTIMAL 100-129 mg/dl NEAR OR ABOVE OPTIMAL 130-159 mg/dl BORDERLINE HIGH 160-189 mg/dl HIGH >190 mg/dl VERY HIGH Magnesium [Mass/Vol] 11.6 mg/dL [facility] Triglyceride [Mass/Vol] 58 mg/dL NINF - 150 mg/dL [facility] 10-01-2024 ALT [Catalytic activity/Vol] 51 U/L 16 - 63 U/L [facility]io 10-01-2024 AST [Catalytic activity/Vol] 46 U/L High 15 - 37 U/L [facility] No Panel Informationon 10-01 Interpretation and review of laboratory results Abnormal [facility] ALL CBC WITH AUTO DIFFon Erythrocyte distribution width (RBC) [Ratio] 13.8 % 11.0 - 15.0 % [facility] Hematocrit (Bld) [Volume fraction] 37.5 % Low 42.0 - 54.0 % [facility] Hemoglobin (Bld) [Mass/Vol] 12.6 g/dL Low 14.0 - 18.0 g/dL [facility] Interpretation and review of laboratory results Abnormal [facility] MCH (RBC) [Entitic mass] 31.2 pg 25.9 - 34.0 pg [facility] MCHC (RBC) [Mass/Vol] 33.6 g/dL 29.9 - 35.2 g/dL [facility] MCV (RBC) [Entitic vol] 92.8 fL 80.0 - 94.0 fL [facility] Platelet mean volume (Bld) [Entitic vol] 10.6 fL 9.5 - 13.5 fL [facility] TB PLT 65 Low [facility] RBC 4.04 Low [facility] TB WBC 3.3 Low [facility] 36on 07-09-2024 36 This patient hasn't been seen since 2022 [facility] US abdomen limitedon 025 US abdomen limited [facility] [address] Ultrasound Report Signed Patient: Pankaj Payne MR#: [id number] : 1945 Acct:[id number] Age/Sex: 78 / M ADM Date: 05/21/24 Loc: Room: Type: [facility] Attending Dr: Mick Branch MD Ordering Provider: Mick Branch MD Date of Service: 05/21/24 US/US abdomen limited: K74.60 - Unspecified cirrhosis of liver Copies to: Mick Branch MD LIMITED ABDOMINAL ULTRASOUND: CLINICAL HISTORY: Cirrhosis. COMPARISON: Liver ultrasound 10/01/2023 TECHNIQUE: Grayscale and color Doppler images of the right upper quadrant organs were obtained. FINDINGS: Pancreas: Visualized portions appear unremarkable. Liver: Cirrhotic appearing liver without mass or intrahepatic ductal dilatation. Hepatopedal flow is seen within the portal vein. Gallbladder: Removed. CBD: 6 mm. Right renal cyst measuring 4.1 cm without hydronephrosis US/US abdomen limited IMPRESSION: CIRRHOTIC LIVER WITHOUT MASS.. Impression dictated by: Kartik Claros Jr., D.O.05/21/2024 10:23 AM Dictation Location: [place] [address] Tech: Lizzy Llanes Transcribed By: USMAN 05/21/24 1023 Dictated By: Kartik Claros Jr, DO 05/21/24 1022 Signed By: 05/21/24 1023 Normal [facility] AFP Tumor Marker, Serumon AFP Tumor Marker, Serum 2.5 ng/mL Normal 0.0-8.4 [facility] Comment on above: Result Comment: [facility] Electrochemiluminescence Immunoassay (ECLIA) Values obtained with different assay methods or kits cannot be used interchangeably. Results cannot be interpreted as absolute evidence of the presence or absence of malignant disease. This test is not interpretable in females. Performed at: - [facility] [id number] Cloth Measurer: Charlie Klein PhD, Phone: [phone] PERFORMED BY: [address] [place] [address] PATHOLOGIST OPTOMETRIC ASSISTANT LUCIUS IRELAND M.D. Performed By: #### A FP #### [facility] , #### PSAS, TSH3 wRFLX, CMP, PT, LIPID #### [facility] [address] Alanine aminotransferase [En zymatic activity/volume] in Serum or PlasmaOrdered By: Mick Branch on 04-30-2024 ALT [Catalytic activity/Vol] Alanine aminotransferase [Enzymatic activity/volume] in Serum or Plasma 7-52 [facility] Albumin [Mass/volume] in Ser um or Plasma by Bromocresol green (BCG) dye binding methoOrdered By: Mick Branch on 04-30-2024 Albumin BCG dye [Mass/Vol] Albumin [Mass/volume] in Serum or Plasma by Bromocresol green (BCG) dye binding metho 3.5-5.7 [facility] Alkaline phosphatase [Enzyma tic activity/volume] in Serum or PlasmaOrdered By: Mick Branch on 04-30-2024 ALP [Catalytic activity/Vol] Alkaline phosphatase [Enzymatic activity/volume] in Serum or Plasma High 34-104 [facility] Aspartate aminotransferase [ Enzymatic activity/volume] in Serum or PlasmaOrdered By: Mick Branch on 04-30-2024 AST [Catalytic activity/Vol] Aspartate aminotransferase [Enzymatic activity/volume] in Serum or Plasma High 13-39 [facility] Bilirubin.total [Mass/volume ] in Serum or PlasmaOrdered By: Mick Branch on 04-30-2024 Bilirubin [Mass/Vol] Bilirubin.total [Mass/volume] in Serum or Plasma 0.3-1.0 [facility] Calcium [Mass/volume] in Ser um or PlasmaOrdered By: Mick Branch on 04-30-2024 Calcium [Mass/Vol] Calcium [Mass/volume ] in Serum or Plasma 8.6-10.3 [facility] Carbon dioxide, total [Moles /volume] in Serum or PlasmaOrdered By: Mick Branch on 04-30-2024 CO2 [Moles/Vol] Carbon dioxide, tota l [Moles/volume] in Serum or Plasma High 21.0-31.0 [facility] Chloride [Moles/volume] in S lilly or PlasmaOrdered By: Mick Branch on 04-30-2024 Chloride [Moles/Vol] Chloride [Moles/vol ume] in Serum or Plasma High 98-107 [facility] Cholesterol [Mass/volume] in Serum or PlasmaOrdered By: Mick Branch on 04-30-2024 Cholesterol [Mass/Vol] Cholesterol [Mass /volume] in Serum or Plasma 140-200 [facility] Comment on above: Chol less than 200 m g/dl low riskChol 201-239 mg/dl borderline riskChol 240 mg/dl and greater high risk Cholesterol in HDL [Mass/vol ume] in Serum or PlasmaOrdered By: Mick Branch on 04-30-2024 Cholesterol in HDL [Mass/Vol] Serum or plasma high density lipoprotein (HDL) cholesterol measurement 23-92 [facility] Comment on above: HDL CHOL ATP-III CLA SSIFICATION Cardiovascular RiskHDL > or equal to 60 mg/dL LOWHDL < 40 mg/dL HIGH Cholesterol in LDL Calc [Mas s/Vol]Ordered By: Mick Branch on 04-30-2024 Cholesterol in LDL [Mass/Vol] Cholesterol in LDL [Mass/volume] in Serum or Plasma by calculation 0-100 [facility] Comment on above: LDL ATP III CLASSIFI CATIONLDL less than 100 mg/dL OptimalLDL 100-129 mg/dL Near or above optimalLDL 130-159 mg/dL Borderline highLDL 160-189 mg/dL HighLDL greater than 189 mg/dL Very high Cholesterol in VLDL Calc [Ma ss/Vol]Ordered By: Mick Branch on 04-30-2024 Cholesterol in VLDL [Mass/Vol] Cholesterol in VLDL [Mass/volume] in Serum or Plasma by calculation [facility] Comprehensive Metabolic Pane ross 04-30-2024 Albumin [Mass/Vol] 3.5 g/dL Normal 3.5-5.7 [facility] Comment on above: Performed By: #### A FPTM #### [facility] , #### PSAS, TSH3 wRFLX, CMP, PT, LIPID #### [address] Albumin/Globulin [Mass ratio] 1.3 {ratio} Normal [facility] Comment on above: Performed By: #### A FPTM #### [facility] , #### PSAS, TSH3 wRFLX, CMP, PT, LIPID #### [address] ALP [Catalytic activity/Vol] 122 U/L High 34-104 [facility] Comment on above: Performed By: #### A FPTM #### [facility] , #### PSAS, TSH3 wRFLX, CMP, PT, LIPID #### [address] ALT [Catalytic activity/Vol] 40 U/L Normal 7-52 [facility] Comment on above: Performed By: #### A FPTM #### [facility] , #### PSAS, TSH3 wRFLX, CMP, PT, LIPID #### [address] Anion gap [Moles/Vol] 4.9 mmol/L Low 6.0-15.0 [facility] Comment on above: Performed By: #### A FPTM #### [facility] , #### PSAS, TSH3 wRFLX, CMP, PT, LIPID #### [facility] [address] [place] [address] AST [Catalytic activity/Vol] 46 U/L High 13-39 [facility] Comment on above: Performed By: #### A FPTM #### [facility] , #### PSAS, TSH3 wRFLX, CMP, PT, LIPID #### [facility] [address] [place] [address] Bilirubin [Mass/Vol] 0.7 mg/dL Normal 0.3-1.0 [facility] Comment on above: Performed By: #### A FPTM #### [facility] , #### PSAS, TSH3 wRFLX, CMP, PT, LIPID #### [facility] [address] [place] [address] Calcium [Mass/Vol] 8.8 mg/dL Normal 8.6-10.3 [facility] Comment on above: Performed By: #### A FPTM #### [facility] , #### PSAS, TSH3 wRFLX, CMP, PT, LIPID #### [facility] [address] [place] [address] Chloride [Moles/Vol] 109 mmol/L High 98-107 [facility] Comment on above: Performed By: #### A FPTM #### [facility] , #### PSAS, TSH3 wRFLX, CMP, PT, LIPID #### [facility] [address] [place] [address] CO2 [Moles/Vol] 31.4 mmol/L High 21.0-31.0 [facility] Comment on above: Performed By: #### A FPTM #### [facility] , #### PSAS, TSH3 wRFLX, CMP, PT, LIPID #### [facility] [address] [place] [address] Creatinine [Mass/Vol] 0.91 mg/dL Normal 0.70-1.30 [facility] Comment on above: Performed By: #### A FPTM #### [facility] , #### PSAS, TSH3 wRFLX, CMP, PT, LIPID #### [facility] [address] [place] [address] GFR/1.73 sq M.predicted MDRD (S/P/Bld) [Vol rate/Area] mL/min/{1.73_m2} Normal [facility] Comment on above: Performed By: #### A FPTM #### [facility] , #### PSAS, TSH3 wRFLX, CMP, PT, LIPID #### [facility] [address] [place] [address] Globulin (S) [Mass/Vol] 2.7 g/dL Normal [facility] Comment on above: Performed By: #### A FPTM #### [facility] , #### PSAS, TSH3 wRFLX, CMP, PT, LIPID #### [address] Glucose [Mass/Vol] 82 mg/dL Normal 70-100 [facility] Comment on above: Result Comment: [place] Glucose Reference Range is dependent on time and content of last meal. Glucose of more than 200 mg/dL in a nonstressed, ambulatory subject supports the diagnosis of Diabetes Mellitus. ADA recommended reference range Performed By: #### A FPTM #### [facility] , #### PSAS, TSH3 wRFLX, CMP, PT, LIPID #### [place] [address] [place] Potassium [Moles/Vol] 4.3 mmol/L Normal 3.5-5.1 [facility] Comment on above: Performed By: #### A FPTM #### [facility] , #### PSAS, TSH3 wRFLX, CMP, PT, LIPID #### [facility] [address] [place] [address] [place] Protein [Mass/Vol] 6.2 g/dL Low 6.4-8.9 [facility] Comment on above: Performed By: #### A FPTM #### [facility] , #### PSAS, TSH3 wRFLX, CMP, PT, LIPID #### [place] [address] [place] Sodium [Moles/Vol] 141 mmol/L Normal 136-145 [facility] Comment on above: Performed By: #### A FPTM #### [facility] , #### PSAS, TSH3 wRFLX, CMP, PT, LIPID #### [place] [address] [place] Urea nitrogen [Mass/Vol] 18 mg/dL Normal 7-25 [facility] Comment on above: Performed By: #### A FPTM #### [facility] , #### PSAS, TSH3 wRFLX, CMP, PT, LIPID #### [facility] [address] Creatinine [Mass/volume] in Serum or PlasmaOrdered By: Mick Branch on 04-30-2024 Creatinine [Mass/Vol] Creatinine [Mass/v olume] in Serum or Plasma 0.70-1.30 [facility] Globulin Calc (S) [Mass/Vol] Ordered By: Mick Branch on 04-30-2024 Globulin (S) [Mass/Vol] Serum globulin measurement by calculation (mass/volume) [facility] Glucose [Mass/volume] in Ser um or PlasmaOrdered By: Mick Branch on 04-30-2024 Glucose [Mass/Vol] Glucose [Mass/volume ] in Serum or Plasma 70-100 [facility] Comment on above: ADA recommended refe rence rangeRandom Glucose Reference Range is dependent on time and content of last meal. Glucose of more than 200 mg/dL in a nonstressed, ambulatory subject supports the diagnosis of Diabetes Mellitus. INR in Platelet poor plasma by Coagulation assayOrdered By: Mick Branch on 04-30-2024 INR Coag (PPP) [Relative time] INR in Platelet poor plasma by Coagulation assay [facility] Comment on above: INR Therapeutic [...] with mechanical heart valves: 3 - 4.5 Lipid Panelon 04-30-2024 Cholesterol [Mass/Vol] 142 mg/dL Normal 140-200 [facility] Comment on above: Result Comment: Chol less than 200 mg/dl low risk Chol 201-239 mg/dl borderline risk Chol 240 mg/dl and greater high risk Performed By: #### A FPTM #### [facility] , #### PSAS, TSH3 wRFLX, CMP, PT, LIPID #### [facility] [address] Cholesterol in HDL [Mass/Vol] 42 mg/dL Normal 23-92 [facility] Comment on above: Result Comment: HDL CHOL ATP-III CLASSIFICATION Cardiovascular Risk HDL > or equal to 60 mg/dL LOW HDL < 40 mg/dL HIGH Performed By: #### A FPTM #### [facility] , #### PSAS, TSH3 wRFLX, CMP, PT, LIPID #### [facility] [address] Cholesterol.total/Chol esterol in HDL [Mass ratio] 3.4 {ratio} Normal <5.0 [facility] Comment on above: Performed By: #### A FPTM #### [facility] , #### PSAS, TSH3 wRFLX, CMP, PT, LIPID #### [address] LDL Cholesterol,Calculated 67 mg/dL Normal 0-100 [facility] Comment on above: Result Comment: LDL ATP III CLASSIFICATION LDL less than 100 mg/dL Optimal LDL 100-129 mg/dL Near or above optimal LDL 130-159 mg/dL Borderline high LDL 160-189 mg/dL High LDL greater than 189 mg/dL Very high Performed By: #### A FPTM #### [facility] , #### PSAS, TSH3 wRFLX, CMP, PT, LIPID #### [address] Triglyceride w/Reflex 166 mg/dL High 0-149 [facility] Comment on above: Result Comment: TRIG ATP III CLASSIFICATION TRIG less than 150 mg/dL Normal TRIG 150-199 mg/dL Borderline high TRIG 200-500 mg/dL High TRIG greater than 500 mg/dL Very high Standard traceable to the Center for Disease Conrtrol and Prevention (CDC) test method. Performed By: #### A FPTM #### [facility] , #### PSAS, TSH3 wRFLX, CMP, PT, LIPID #### [facility] [address] VLDL CHOLESTEROL 33 mg/dL Normal [facility] Comment on above: Performed By: #### A FPTM #### [facility] , #### PSAS, TSH3 wRFLX, CMP, PT, LIPID #### [address] No Panel InformationOrdered By: Mick Branch on 04-30-2024 Estimated GFR (CKD-EPI) > 60.0 mL/Min [facility] Creatinine Clearance (Chem N/A [facility] PSA Screen (Yearly Only)on 0 04-30-2024 PSA Screen (Yearly Only) 0.600 ng/mL Normal 0.000-4.00 0 [facility] Comment on above: Result Comment: Seri al tumor marker results determined by assays using different manufacturers or methods may not be comparable. [facility] b2b sales manager and method: [employer], CHEMILUMINESCENT IMMUNOASSAY. PERFORMED BY: [place] [address] PATHOLOGIST OPTOMETRIC ASSISTANT LUCIUS IRELAND M.D. Performed By: #### A FPTM #### [facility] , #### PSAS, TSH3 wRFLX, CMP, PT, LIPID #### [facility] [address] [place] [address] Potassium [Moles/volume] in Serum or PlasmaOrdered By: Mick Branch on 04-30-2024 Potassium [Moles/Vol] Potassium [Moles/v olume] in Serum or Plasma 3.5-5.1 [facility] Prostate specific Ag [Mass/v olume] in Serum or PlasmaOrdered By: Mick Branch on 04-30-2024 Prostate specific Ag [Mass/Vol] Prostate specific Ag [Mass/volume] in Serum or Plasma 0.000-4.00 0 [facility] Comment on above: Serial tumor marker results determined by assays using different manufacturers or methods may not be comparable.[facility] b2b sales manager and method:[employer] DXI, CHEMILUMINESCENT IMMUNOASSAY. Protein [Mass/volume] in Ser um or PlasmaOrdered By: Mick Branch on 04-30-2024 Protein [Mass/Vol] Protein [Mass/volume ] in Serum or Plasma Low 6.4-8.9 [facility] Prothrombin Time INRon 04-30 INR Coag (PPP) [Relative time] 1.2 {INR} Normal [facility] Comment on above: Result Comment: INR Therapeutic Range A) Pre- [...] heart valves: 3 - 4.5 PERFORMED BY: [place] [address] PATHOLOGIST OPTOMETRIC ASSISTANT LUCIUS IRELAND M.D. Performed By: #### A FPTM #### [facility] , #### PSAS, TSH3 wRFLX, CMP, PT, LIPID #### [facility] [address] [place] [address] PT Coag (PPP) [Time] 13.8 s High 9.0-12.9 [facility] Comment on above: Result Comment: A he matocrit value greater than 55% may lead to inaccurate results in coagulation testing. Patients having hematocrit values >55% require a special collection tube for coagulation studies. Please contact the laboratory at [phone] for redraw instructions. Performed By: #### A FPTM #### [facility] , #### PSAS, TSH3 wRFLX, CMP, PT, LIPID #### [facility] [address] [place] [address] Prothrombin time (PT)Ordered By: Mick Branch on 04-30-2024 PT Coag (PPP) [Time] Prothrombin time (PT) High 9.0- 12.9 [facility] Comment on above: A hematocrit value g reater than 55% may lead to inaccurate results in coagulation testing. Patients having hematocrit values >55% require a special collection tube for coagulation studies. Please contact the laboratory at [phone] for redraw instructions. Serum or plasma albumin/glob ulin mass ratioOrdered By: Mick Branch on 04-30-2024 Albumin/Globulin [Mass ratio] Serum or plasma albumin/globulin mass ratio [facility] Serum or plasma [id number] protein tumor marker measurement (mass/volume)Ordered By: Mick Branch on 04-30-2024 AFP.tumor marker [Mass/Vol] Serum or plasma [id number] tumor marker measurement (mass/volume) 0.0-8.4 [facility] Comment on above: [facility] El ectrochemiluminescence Immunoassay(ECLIA)Values obtained with different assay methods or kits cannotbe used interchangeably. Results cannot be interpreted asabsolute evidence of the presence or absence of malignantdisease.This test is not interpretable in females.Performed at: [employer] [address] [id number] Director: Charlie Klein PhD, Phone: [phone] Serum or plasma anion gap de terminationOrdered By: iMck Branch on 04-30-2024 Anion gap [Moles/Vol] Serum or plasma an ion gap determination Low 6.0-15.0 [facility] Serum or plasma total choles terol/high density lipoprotein (HDL) cholesterol mass ratOrdered By: Mick Branch on 04-30-2024 Cholesterol.total/Chol esterol in HDL [Mass ratio] Serum or plasma total cholesterol/high density lipoprotein (HDL) cholesterol mass rat <5.0 [facility] Sodium [Moles/volume] in Ser um or PlasmaOrdered By: Mick Branch on 04-30-2024 Sodium [Moles/Vol] Sodium [Moles/volume ] in Serum or Plasma 136-145 [facility] Thyroid Stim Hormone w/Rflxo n 04-30-2024 Thyroid Stim Hormone w/Rflx 3.07 u[iU]/mL Normal 0.45-5.33 [facility] Comment on above: Result Comment: PERF ORMED BY: [facility] [address] [address] PATHOLOGIST OPTOMETRIC ASSISTANT LUCIUS IRELAND M.D. Performed By: #### A FPTM #### [facility] , #### PSAS, TSH3 wRFLX, CMP, PT, LIPID #### [facility] [address] Thyrotropin [Units/volume] i n Serum or PlasmaOrdered By: Mick Branch on 04-30-2024 TSH Qn Thyrotropin [Units/volume] in Serum or Plasma 0.45-5.33 [facility] Triglyceride [Mass/volume] i n Serum or PlasmaOrdered By: Mick Branch on 04-30-2024 Triglyceride [Mass/Vol] Triglyceride [Mass/volume] in Serum or Plasma High 0-149 [facility] Comment on above: TRIG ATP III CLASSIF ICATIONTRIG less than 150 mg/dL NormalTRIG 150-199 mg/dL Borderline highTRIG 200-500 mg/dL High TRIG greater than 500 mg/dL Very highStandard traceable to the Center for Disease Conrtrol and Prevention (CDC) test method. Urea nitrogen [Mass/volume] in Serum or PlasmaOrdered By: Mick Branch on 04-30-2024 Urea nitrogen [Mass/Vol] Urea nitrogen [Mass/volume] in Serum or Plasma 10-16 [facility] ALL CBC WITH AUTO DIFFon Erythrocyte distribution width (RBC) [Ratio] 13.6 % 11.0 - 15.0 % [facility] Hematocrit (Bld) [Volume fraction] 40 % Low 42.0 - 54.0 % [facility] Hemoglobin (Bld) [Mass/Vol] 13 g/dL Low 14.0 - 18.0 g/dL [facility] Interpretation and review of laboratory results Abnormal [facility] MCH (RBC) [Entitic mass] 31.6 pg 25.9 - 34.0 pg [facility] MCHC (RBC) [Mass/Vol] 32.5 g/dL 29.9 - 35.2 g/dL [facility] MCV (RBC) [Entitic vol] 97.1 fL High 80.0 - 94.0 fL [facility] Platelet mean volume (Bld) [Entitic vol] 11.1 fL 9.5 - 13.5 fL [facility] PLT 84 Low [facility] TB RBC 4.12 Low [facility] WBC 4.9 [facility] ECG 12 [place] 01-01-2024 Sinus bradycardia, P VC, sinus arrhythmia, anterolateral AR age-indeterminate, abnormal ECG [facility] Work Phone: [facility] Work Phone: ALL CBC WITH AUTO DIFFon Erythrocyte distribution width (RBC) [Ratio] 18.3 % High 11.0 - 15.0 % [facility] Hematocrit (Bld) [Volume fraction] 38.3 % Low 42.0 - 54.0 % [facility] Hemoglobin (Bld) [Mass/Vol] 12.2 g/dL Low 14.0 - 18.0 g/dL [facility] Interpretation and review of laboratory results Abnormal [facility] MCH (RBC) [Entitic mass] 29.5 pg 25.9 - 34.0 pg [facility] MCHC (RBC) [Mass/Vol] 31.9 g/dL 29.9 - 35.2 g/dL [facility] MCV (RBC) [Entitic vol] 92.5 fL 80.0 - 94.0 fL [facility] Platelet mean volume (Bld) [Entitic vol] 11.1 fL 9.5 - 13.5 fL [facility] PLT 63 Low [facility] RBC 4.14 Low [facility] WBC 3.1 Low [facility] No Panel InformationOrdered By: Mick Branch on 10-23-2023 Miscellaneous Pathology Test See comment [facility] Comment on above: See report. Scanned copy available in EMR. Alanine aminotransferase [En zymatic activity/volume] in Serum or PlasmaOrdered By: Mick Branch on 09-17-2023 ALT [Catalytic activity/Vol] 43 U/L [facility] Albumin [Mass/volume] in Ser um or Plasma by Bromocresol green (BCG) dye binding methoOrdered By: Mick Branch on 09-17-2023 Albumin BCG dye [Mass/Vol] 3.9 g/dL 3.5-5.7 [facility] Alkaline phosphatase [Enzyma tic activity/volume] in Serum or PlasmaOrdered By: Mick Branch on 09-17-2023 ALP [Catalytic activity/Vol] 138 U/L High 34-104 [facility] Anisocytosis LM Ql (Bld)Orde red By: Mick Branch on 09-17-2023 Anisocytosis Ql (Bld) Slight Fir [facility] Aspartate aminotransferase [ Enzymatic activity/volume] in Serum or PlasmaOrdered By: Mick Branch on 09-17-2023 AST [Catalytic activity/Vol] 49 U/L High 13-39 [facility] Band form neutrophils/100 WB C Manual cnt (Bld)Ordered By: Mick Branch on 09-17-2023 Band form neutrophils/100 WBC (Bld) 1 % 0-5 [facility] Basophils Auto (Bld) [#/Vol] Ordered By: Mick Branch on 09-17-2023 Basophils (Bld) [#/Vol] N/A [facility] Basophils/100 WBC Auto (Bld) Ordered By: Mick Branch on 09-17-2023 Basophils/100 WBC (Bld) N/A [facility] Bilirubin.total [Mass/volume ] in Serum or PlasmaOrdered By: Mick Branch on 09-17-2023 Bilirubin [Mass/Vol] 0.6 mg/dL 0.3-1.0 [facility] Calcium [Mass/volume] in Ser um or PlasmaOrdered By: Mick Branch on 09-17-2023 Calcium [Mass/Vol] 8.8 mg/dL 8.6-10.3 [facility] Carbon dioxide, total [Moles /volume] in Serum or PlasmaOrdered By: Mick Branch on 09-17-2023 CO2 [Moles/Vol] 27.5 mmol/L 21.0-31.0 [facility] Chloride [Moles/volume] in S lilly or PlasmaOrdered By: Mick Branch on 09-17-2023 Chloride [Moles/Vol] 111 mmol/L High 98-107 [facility] Creatinine [Mass/volume] in Serum or PlasmaOrdered By: Mick Branch on 09-17-2023 Creatinine [Mass/Vol] 0.94 mg/dL 0.70-1.30 [facility] Eosinophils Auto (Bld) [#/Vo l]Ordered By: Mick Branch on 09-17-2023 Eosinophils (Bld) [#/Vol] N/A [facility] Eosinophils/100 WBC Auto (Bl d)Ordered By: Mick Branch on 09-17-2023 Eosinophils/100 WBC (Bld) N/A [facility] Eosinophils/100 WBC Manual c nt (Bld)Ordered By: Mick Branch on 09-17-2023 Eosinophils/100 WBC (Bld) 4 % High 1-3 [facility] Erythrocyte distribution wid th Auto (RBC) [Ratio]Ordered By: Mick Branch on 09-17-2023 Erythrocyte distribution width (RBC) [Ratio] 17.4 % High 12.0-14.8 [facility] Ferritin [Mass/volume] in Se rum or PlasmaOrdered By: Mick Branch on 09-17-2023 Ferritin [Mass/Vol] 23.4 ng/mL Low 23.9-336.2 [facility] Globulin Calc (S) [Mass/Vol] Ordered By: Mick Branch on 09-17-2023 Globulin (S) [Mass/Vol] 2.7 g/dL [facility] Glucose [Mass/volume] in Ser um or PlasmaOrdered By: Mick Branch on 09-17-2023 Glucose [Mass/Vol] 78 mg/dL 70-100 [facility] Comment on above: ADA recommended refe rence rangeRandom Glucose Reference Range is dependent on time and content of last meal. Glucose of more than 200 mg/dL in a nonstressed, ambulatory subject supports the diagnosis of Diabetes Mellitus. Hematocrit Auto (Bld) [Volum e fraction]Ordered By: Mick Branch on 09-17-2023 Hematocrit (Bld) [Volume fraction] 37.4 % Low 38.8-50.0 [facility] Hemoglobin [Mass/volume] in BloodOrdered By: Mick Branch on 09-17-2023 Hemoglobin (Bld) [Mass/Vol] 12.1 g/dL Low 13.0-17.0 [facility] INR in Platelet poor plasma by Coagulation assayOrdered By: Mick Branch on 09-17-2023 INR Coag (PPP) [Relative time] 1.1 {INR} [facility] Comment on above: INR Therapeutic [...] with mechanical heart valves: 3 - 4.5 Iron [Mass/volume] in Serum or PlasmaOrdered By: Mick Branch on 09-17-2023 Iron [Mass/Vol] 52 ug/dL 50-212 [facility] Iron binding capacity [Mass/ volume] in Serum or PlasmaOrdered By: Mick Branch on 09-17-2023 Iron binding capacity [Mass/Vol] 496 ug/dL High 255-450 [facility] Iron saturation [Mass Fracti on] in Serum or PlasmaOrdered By: Mick Branch on 09-17-2023 Iron saturation [Mass fraction] 10.5 % Low 20-50 [facility] Leukocytes [#/volume] correc britt for nucleated erythrocytes in Blood by Automated counOrdered By: Mick Branch on 09-17-2023 WBC corrected for nucl RBC Auto (Bld) [#/Vol] 3.2 10*3/uL Low 4.1-10.5 [facility] Lymphocytes Auto (Bld) [#/Vo l]Ordered By: Mick Branch on 09-17-2023 Lymphocytes (Bld) [#/Vol] N/A [facility] Lymphocytes/100 WBC Auto (Bl d)Ordered By: Mick Branch on 09-17-2023 Lymphocytes/100 WBC (Bld) N/A [facility] Lymphocytes/100 WBC Manual c nt (Bld)Ordered By: Mick Branch on 09-17-2023 Lymphocytes/100 WBC (Bld) 25 % 18-42 [facility] MCH Auto (RBC) [Entitic mass ]Ordered By: Mick Branch on 09-17-2023 MCH (RBC) [Entitic mass] 27.4 pg Low 27.5-35.2 [facility] MCHC Auto (RBC) [Mass/Vol]Or dered By: Mick Branch on 09-17-2023 MCHC (RBC) [Mass/Vol] 32.2 g/dL Low 32.5-35.6 [facility] MCV Auto (RBC) [Entitic vol] Ordered By: Mick Branch on 09-17-2023 MCV (RBC) [Entitic vol] 85.0 fL 83.5-101 [facility] Macrocytes LM Ql (Bld)Ordere d By: Mick Branch on 09-17-2023 Macrocytes Ql (Bld) Slight [facility] Microcytes LM Ql (Bld)Ordere d By: Mick Branch on 09-17-2023 Microcytes Ql (Bld) Slight [facility] Monocytes Auto (Bld) [#/Vol] Ordered By: Mick Branch on 09-17-2023 Monocytes (Bld) [#/Vol] N/A [facility] Monocytes/100 WBC Auto (Bld) Ordered By: Mick Branch on 09-17-2023 Monocytes/100 WBC (Bld) N/A [facility] Monocytes/100 WBC Manual cnt (Bld)Ordered By: Mick Branch on 09-17-2023 Monocytes/100 WBC (Bld) 8 % 2-11 [facility] Neutrophils Auto (Bld) [#/Vo l]Ordered By: Mick Branch on 09-17-2023 Neutrophils (Bld) [#/Vol] N/A [facility] Neutrophils/100 WBC Auto (Bl d)Ordered By: Mick Branch on 09-17-2023 Neutrophils/100 WBC (Bld) N/A [facility] No Panel InformationOrdered By: Mick Branch on 09-17-2023 Estimated GFR (CKD-EPI) > 60.0 mL/Min [facility] Creatinine Clearance (Chem N/A [facility] Nucleated erythrocytes [Pres ence] in Blood by Automated countOrdered By: Mick Branch on 09-17-2023 Nucleated RBC Auto Ql (Bld) N/A [facility] Ovalocyte detectionOrdered B y: Mick Branch on 09-17-2023 Ovalocytes LM Ql (Bld) Slight [facility] Platelet adequacy [Presence] in Blood by Light microscopyOrdered By: Mick Branch on 09-17-2023 Platelets LM Ql (Bld) Decreased Normal [facility] Platelet mean volume Auto (B ld) [Entitic vol]Ordered By: Mick Branch on 09-17-2023 Platelet mean volume (Bld) [Entitic vol] 8.9 fL 6.6-10.1 [facility] Platelet morphology finding [Identifier] in BloodOrdered By: Mick Branch on 09-17-2023 Platelet morphology finding Nom (Bld) Normal Normal [facility] Platelets Auto (Bld) [#/Vol] Ordered By: Mick Branch on 09-17-2023 Platelets (Bld) [#/Vol] 112 10*3/uL Low 150-450 [facility] Poikilocytosis [Presence] in Blood by Light microscopyOrdered By: Mick Branch on 09-17-2023 Poikilocytosis LM Ql (Bld) Slight [facility] Potassium [Moles/volume] in Serum or PlasmaOrdered By: Mick Branch on 09-17-2023 Potassium [Moles/Vol] 4.3 mmol/L 3.5-5.1 [facility] Protein [Mass/volume] in Ser um or PlasmaOrdered By: Mick Branch on 09-17-2023 Protein [Mass/Vol] 6.6 g/dL 6.4-8.9 [facility] Prothrombin time (PT)Ordered By: Mick Branch on 09-17-2023 PT Coag (PPP) [Time] 13.1 s High 9.0-12.9 [facility] Comment on above: A hematocrit value g reater than 55% may lead to inaccurate results in coagulation testing. Patients having hematocrit values >55% require a special collection tube for coagulation studies. Please contact the laboratory at [phone] for redraw instructions. RBC Auto (Bld) [#/Vol]Ordere d By: Mick Branch on 09-17-2023 RBC (Bld) [#/Vol] 4.40 10*6/uL 3.90-5.60 [facility] RBC morphologyOrdered By: Kimberly Branch on 09-17-2023 RBC morphology finding Nom (Bld) N/A [facility] Segmented neutrophils/100 WB C Manual cnt (Bld)Ordered By: Mick Branch on 09-17-2023 Segmented neutrophils/100 WBC (Bld) 63 % 50-70 [facility] Serum or plasma albumin/glob ulin mass ratioOrdered By: Mick Branch on 09-17-2023 Albumin/Globulin [Mass ratio] 1.4 {ratio} [facility] Serum or plasma [id number]-7-[id number] protein tumor marker measurement (mass/volume)Ordered By: Mick Branch on 09-17-2023 AFP.tumor marker [Mass/Vol] 3.0 ng/mL 0.0-8.4 [facility] Comment on above: [facility] El ectrochemiluminescence Immunoassay(ECLIA)Values obtained with different assay methods or kits cannotbe used interchangeably. Results cannot be interpreted asabsolute evidence of the presence or absence of malignantdisease.This test is not interpretable in females.Performed at: - [facility] [id number] Director: Charlie Klein PhD, Phone: [phone] Serum or plasma anion gap de terminationOrdered By: Mick Branch on 09-17-2023 Anion gap [Moles/Vol] 8.8 mmol/L 6.0-15.0 [facility] Sodium [Moles/volume] in Ser um or PlasmaOrdered By: Mick Branch on 09-17-2023 Sodium [Moles/Vol] 143 mmol/L 136-145 [facility] Transferrin [Mass/volume] in Serum or PlasmaOrdered By: Mick Branch on 09-17-2023 Transferrin [Mass/Vol] 354 mg/dL 203-362 [facility] Urea nitrogen [Mass/volume] in Serum or PlasmaOrdered By: Mick Branch on 09-17-2023 Urea nitrogen [Mass/Vol] 20 mg/dL 10-16 [facility] WBC Auto (Bld) [#/Vol]Ordere d By: Mick Branch on 09-17-2023 WBC (Bld) [#/Vol] 3.4 10*3/uL Low 4.1-10.5 [facility] ECG 12 [place]on 06-20-2023 Sinus rhythm, rightw stephanie axis, bigeminal PVCs, anteroseptal infarction pattern age indeterminant, abnormal ECG [facility] Work Phone: Albumin [Mass/volume] in Ser um or PlasmaOrdered By: Zoila Castorena on 08-08-2022 Albumin [Mass/Vol] 3.0 g/dL 2.9-4.4 [facility] Folate [Mass/volume] in Seru m or PlasmaOrdered By: Zoila Castorena on 08-08-2022 Folate [Mass/Vol] 40.0 ng/mL >5.9 [facility] Comment on above: Folate reference ran ge: >5.9 ng/mlThe WHO technical consultation on folate and vitamin [id number] has determined that folate concentrations lessthan 4 ng/ml are considered deficient. Haptoglobin [Mass/volume] in Serum or PlasmaOrdered By: Zoila Castorena on 08-08-2022 Haptoglobin [Mass/Vol] 58 mg/dL 44-215 [facility] Lactate dehydrogenase [Enzym atic activity/volume] in Serum or Plasma by Lactate to pyOrdered By: Zoila Castorena on 08-08-2022 LDH Lactate to pyruvate reaction [Catalytic activity/Vol] 221 U/L 140-271 [facility] No Panel InformationOrdered By: Zoila Castorena on 08-08-2022 Protein Electrophoresis M-Jose Not observed g/dL Not Observed [facility] Protein Electrophoresis Note See comment . [facility] Comment on above: Protein electrophore sis scan will follow via computer,mail, or doweler delivery.Performed at: [address] [id number] Director: Charlie Klein PhD, Phone: [phone] Protein [Mass/volume] in Ser um or PlasmaOrdered By: Zoila Castorena on 08-08-2022 Protein [Mass/Vol] 6.0 g/dL 6.0-8.5 [facility] Serum globulin measurement ( mass/volume)Ordered By: Zoila Castorena on 08-08-2022 Globulin (S) [Mass/Vol] 3.0 g/dL 2.2-3.9 [facility] Serum or plasma albumin/glob ulin mass ratioOrdered By: Zoial Castorena on 08-08-2022 Albumin/Globulin [Mass ratio] 1.0 {ratio} 0.7-1.7 [facility] Serum or plasma alpha 1 glob ulin measurement by electrophoresis (mass/volume)Ordered By: Zoila Castorena on 08-08-2022 Alpha 1 globulin Elph [Mass/Vol] 0.2 g/dL 0.0-0.4 [facility] Serum or plasma alpha 2 glob ulin measurement by electrophoresis (mass/volume)Ordered By: Zoila Castorena on 08-08-2022 Alpha 2 globulin Elph [Mass/Vol] 0.7 g/dL 0.4-1.0 [facility] Serum or plasma beta globuli n measurement by electrophoresis (mass/volume)Ordered By: Zoila Castorena on 08-08-2022 Beta globulin Elph [Mass/Vol] 1.2 g/dL 0.7-1.3 [facility] Serum or plasma gamma globul in measurement by electrophoresis (mass/volume)Ordered By: Zoila Castorena on 08-08-2022 Gamma globulin Elph [Mass/Vol] 1.0 g/dL 0.4-1.8 [facility] Vitamin B12 ser/plasOrdered By: Zoila Castorena on 08-08-2022 Cobalamin (Vitamin B12) [Mass/Vol] 481 pg/mL 180-914 [facility] ECHOCARDIO M/2D COMPLETEon 0 11-08-2021 ECHOCARDIO M/2D COMPLETE Patient: PANKAJ PAYNE Exam Date: 11/08/2021 : 1945 Gender:M Ordering : DR KARL MENON M.D. Admission #: [id number] Family : FRANTZ JARVIS Lyman. Order #: [id number] CLICK HERE TO VIEW EXAM ECHOCARDIOGRAM REPORT [...] (Antegrade Flow): 1.68 m/s AoV Area (Peak Cesario): 2.73 cm2, 2.73 cm2 Peak Velocity(Antegrade Flow): 1.68 m/s Peak Gradient(Antegrade Flow): 11.23 mm[Hg] Tricuspid Valve TV Mean Gradient: 2.07 mm[Hg] Peak Velocity (Regurgitant Flow): 1.96 m/s Peak Velocity: 1.20 m/s, 1.20 m/s Pulmonic Valve PV Max Cesario (0.6 - 0.9 m per sec): 1.11 m/s PV Max Gradient: 4.96 mm[Hg] Right Atrium Dictated by: Karl Menon M.D. on 11/08/2021 at 16:52 Approved by: Karl Menon M.D. on 11/08/2021 at 16:55 Normal [facility] Creatinine and Glomerular fi ltration rate.predicted panel (S/P/Bld)Ordered By: Frantz Conley on 10-10-2021 Creatinine [Mass/Vol] 1.11 mg/dL 0.64-1.27 [facility] Estimated glomerular filtrat ion rate (GFR) non- AmericanOrdered By: Frantz Conley on 10-10-2021 GFR/1.73 sq M.predicted among non-blacks MDRD (S/P/Bld) [Vol rate/Area] > 60 mL/Min [facility] No Panel InformationOrdered By: Frantz Conley on 10-10-2021 Estimated GFR () > 60 mL/Min [facility] Comment on above: GFR estimated refere nce range: According to KDOQI guidelines, <60 ml/min/1.73m2 is sufficient to diagnose a patient with chronic kidney disease. Pharmacy Creatinine Clearance (Chem N/A [facility] Serum or plasma urea nitroge n measurement (mass/volume)Ordered By: Frantz Conley on 10-10-2021 Urea nitrogen [Mass/Vol] 16 mg/dL 9 [facility] COVID-19 Positive/NegativeOr dered By: Mick Branch on 09-15-2021 SARS-CoV-2 (COVID-19) N gene GÓMEZ+probe Ql (Resp) Negative Negative [facility] Comment on above: Testing for SARS-CoV -2 by RT-PCR This test was developed and its performance characteristics determined by [employer] and validated at the [facility]. This test has not been [...] Basic Metab w/rfx MGon 08-17 (cont.) Normal [facility] Comment on above: Result Comment: Aver age GFR for 71 or more years old: 75 mL/min/1.73sq m Chronic Kidney Disease: <60 mL/min/1.73sq m Kidney failure: <15 mL/min/1.73sq m eGFR calculated using average adult body mass. Additional eGFR calculator available at: http://www.Zilico/multiple_crcl_2011.htm Performed By: #### C DP, BMPX #### [address] [address] Cloth Measurer: Tony Yanez MD Anion gap [Moles/Vol] 9 mmol/L Normal 9-17 [facility] Comment on above: Performed By: #### C DP, BMPX #### [address] [address] Cloth Measurer: Tony Yanez MD Calcium [Mass/Vol] 9.0 mg/dL Normal 8.6-10.4 [facility] Comment on above: Performed By: #### C DP, BMPX #### [facility] [address] [place] [address] Cloth Measurer: Tony Yanez MD Chloride [Moles/Vol] 107 mmol/L Normal 98-107 [facility] Comment on above: Performed By: #### C DP, BMPX #### [facility] [address] [place] [address] Cloth Measurer: Tony Yanez MD CO2 [Moles/Vol] 23 mmol/L Normal 20-31 [facility] Comment on above: Performed By: #### C DP, BMPX #### [address] [address] Cloth Measurer: Tony Yanez MD Creatinine [Mass/Vol] 0.83 mg/dL Normal 0.70-1.20 [facility] Comment on above: Performed By: #### C DP, BMPX #### [address] [address] Cloth Measurer: Tony Yanez MD GFR, Amer >60 Normal >60 [facility] Comment on above: Performed By: #### C DP, BMPX #### [address] [address] Cloth Measurer: Tony Yanez MD GFR,non Amer >60 Normal >60 [facility] Comment on above: Performed By: #### C DP, BMPX #### [address] [address] Cloth Measurer: Tony Yanez MD Glucose [Mass/Vol] 91 mg/dL Normal 70-99 [facility] Comment on above: Performed By: #### C DP, BMPX #### [address] [address] Cloth Measurer: Tony Yanez MD Potassium [Moles/Vol] 4.3 mmol/L Normal 3.7-5.3 [facility] Comment on above: Performed By: #### C DP, BMPX #### [address] [address] Cloth Measurer: Tony Yanez MD Sodium [Moles/Vol] 139 mmol/L Normal 135-144 [facility] Comment on above: Performed By: #### C DP, BMPX #### [facility] [address] [place], [place] [id number] Cloth Measurer: Tony Yanez MD Urea nitrogen [Mass/Vol] 17 mg/dL Normal 8-23 [facility] Comment on above: Performed By: #### C DP, BMPX #### [facility] [address] [place], [place] [id number] Cloth Measurer: Tony Yanez MD Basic Metabolic Panel w/ Ref nehemias to MGon 08-17-2021 Anion gap [Moles/Vol] 9 mmol/L 9 - 17 mmol/L [facility] [employer] Calcium [Mass/Vol] 9.0 mg/dL 8.6 - 10. 4 mg/dL [facility] [employer] Chloride [Moles/Vol] 107 mmol/L 98 - 10 7 mmol/L [email or web address] CO2 [Moles/Vol] 23 mmol/L 20 - 31 mmol/L [email or web address] Creatinine [Mass/Vol] 0.83 mg/dL 0.70 - 1.20 mg/dL [email or web address] GFR >60 >60 mL/min [email or web address] GFR Non- >60 >60 mL/min [email or web address] GFR/1.73 sq M.predicted MDRD (S/P/Bld) [Vol rate/Area] [email or web address] Comment on above: Average GFR for 70 o r more years old: 75 mL/min/1.73sq m Chronic Kidney Disease: <60 mL/min/1.73sq m Kidney failure: <15 mL/min/1.73sq m eGFR calculated using average adult body mass. Additional eGFR calculator available at: http://www.GLIIF.com/multiple_crcl_2012.htm Glucose [Mass/Vol] 91 mg/dL 70 - 99 mg/dL [email or web address] Potassium [Moles/Vol] 4.3 mmol/L 3.7 - 5.3 mmol/L [email or web address] Sodium [Moles/Vol] 139 mmol/L 135 - 144 mmol/L [email or web address] Urea nitrogen (BldV) [Mass/Vol] 17 mg/dL 8 - 23 mg/dL [facility] CBC with Auto Differentialon 08-17-2021 Absolute Eos # 0.11 [facility] Absolute Immature Granulocyte <0.03 [facility] Absolute Lymph # 1.10 [facility] SECO URS [facility] Absolute Peñuelas # 0.53 [facility] RS [facility] Basophils (Bld) [#/Vol] 0.03 10*3/uL [facility] Basophils/100 WBC (Bld) 1 % 0 - 2 % [facility] Eosinophils/100 WBC (Bld) 2 % 1 - 4 % [facility] Hematocrit (Bld) [Volume fraction] 36.2 % Low 40.7 - 50.3 % [facility] Hemoglobin.gastrointes tinal spec 1 Ql (Stl) 12.1 g/dL Low 13.0 - 17.0 g/dL [facility] Immature granulocytes/100 WBC (Bld) 0 % 0 [facility] Interpretation and review of laboratory results Abnormal [facility] Lymphocytes/100 WBC (Bld) 22 % Low 24 - 43 % [facility] MCH (RBC) [Entitic mass] 31.1 pg 25.2 - 33.5 pg [facility] MCHC (RBC) [Mass/Vol] 33.4 g/dL 28.4 - 34.8 g/dL [facility] MCV (RBC) [Entitic vol] 93.1 fL 82.6 - 102.9 fL [facility] Monocytes/100 WBC (Bld) 11 % 3 - 12 % [facility] NRBC Automated 0.0 0.0 per 100 WBC [facility] Platelet distribution width (Bld) [Ratio] 13.2 % 11.8 - 14.4 % [facility] Platelet mean volume (Bld) [Entitic vol] 11.2 fL 8.1 - 13.5 fL [facility] Platelets (Bld) [#/Vol] 94 10*3/uL Low [facility] RBC (Bld) [#/Vol] 3.89 10*6/uL Low 4.21 - 5.77 m/uL [facility] Segmented neutrophils/100 WBC (Bld) 64 % 36 - 65 % [facility] Segs Absolute 3.14 [facility] WBC (Bld) [#/Vol] 4.9 10*3/uL [facility] CBC with Diffon 08-17-2021 Abs. Basophil 0.03 k/uL Normal 0.00-0.20 [facility] Comment on above: Performed By: #### C DP, BMPX #### [facility] [address] [place] [address] Cloth Measurer: Tony Yanez MD Abs.Imm.Granulocyte <0.03 Normal 0.00-0.30 [facility] Comment on above: Performed By: #### C DP, BMPX #### [facility] [address] [place] [address] Cloth Measurer: Tony Yanez MD Abs.Neutrophil (Seg) 3.14 k/uL Normal 1.50-8.10 [facility] Comment on above: Performed By: #### C DP, BMPX #### [facility] [address] [place] [address] Cloth Measurer: Tony Yanez MD Basophils/100 WBC (Bld) 1 % Normal 0-2 [facility] Comment on above: Performed By: #### C DP, BMPX #### [facility] [address] [place] [address] Cloth Measurer: Tony Yanez MD Eosinophils (Bld) [#/Vol] 0.11 10*3/uL Normal 0.00-0.44 [facility] Comment on above: Performed By: #### C DP, BMPX #### [facility] [address] [place] [address] Cloth Measurer: Tony Yanez MD Eosinophils/100 WBC (Bld) 2 % Normal 1-4 [facility] Comment on above: Performed By: #### C DP, BMPX #### [address] [address] Cloth Measurer: Tony Yanez MD Erythrocyte distribution width (RBC) [Ratio] 13.2 % Normal 11.8-14.4 [facility] Comment on above: Performed By: #### C DP, BMPX #### [place] [address] Cloth Measurer: Tony Yanez MD Hematocrit (Bld) [Volume fraction] 36.2 % Low 40.7-50.3 [facility] Comment on above: Performed By: #### C DP, BMPX #### [place] [address] Cloth Measurer: Tony Yanez MD Hemoglobin (Bld) [Mass/Vol] 12.1 g/dL Low 13.0-17.0 [facility] Comment on above: Performed By: #### C DP, BMPX #### [place] [address] Cloth Measurer: Tony Yanez MD Immature granulocytes/100 WBC (Bld) 0 % Normal 0 [facility] Comment on above: Performed By: #### C DP, BMPX #### [place] [address] Cloth Measurer: Tony Yanez MD Lymphocytes (Bld) [#/Vol] 1.10 10*3/uL Normal 1.10-3.70 [facility] Comment on above: Performed By: #### C DP, BMPX #### [place] [address] Cloth Measurer: Tony Yanez MD Lymphocytes/100 WBC (Bld) 22 % Low 24-43 [facility] Comment on above: Performed By: #### C DP, BMPX #### [facility] [address] [place] [address] Cloth Measurer: Tony Yanez MD MCH (RBC) [Entitic mass] 31.1 pg Normal 25.2-33.5 [facility] Comment on above: Performed By: #### C DP, BMPX #### [address] [address] Cloth Measurer: Tony Yanez MD MCHC (RBC) [Mass/Vol] 33.4 g/dL Normal 28.4-34.8 [facility] Comment on above: Performed By: #### C DP, BMPX #### [address] [address] Cloth Measurer: Tony Yanez MD MCV (RBC) [Entitic vol] 93.1 fL Normal 82.6-102.9 [facility] Comment on above: Performed By: #### C DP, BMPX #### [address] [address] Cloth Measurer: Tony Yanez MD Monocytes (Bld) [#/Vol] 0.53 10*3/uL Normal 0.10-1.20 [facility] Comment on above: Performed By: #### C DP, BMPX #### [address] [address] Cloth Measurer: Tony Yanez MD Monocytes/100 WBC (Bld) 11 % Normal 3-12 [facility] Comment on above: Performed By: #### C DP, BMPX #### [address] [address] Cloth Measurer: Tony Yanez MD Neutrophil (Seg) 64 % Normal 36-65 [facility] Comment on above: Performed By: #### C DP, BMPX #### [address] [address] Cloth Measurer: Tony Yanez MD NRBC Automated 0.0 per 100 WBC Normal 0.0 [facility] Comment on above: Performed By: #### C DP, BMPX #### [address] [address] Cloth Measurer: Tony Yanez MD Platelet mean volume (Bld) [Entitic vol] 11.2 fL Normal 8.1-13.5 [facility] Comment on above: Performed By: #### C DP, BMPX #### [address] [address] Cloth Measurer: Tony Yanez MD Platelets (Bld) [#/Vol] 94 10*3/uL Low 138-453 [facility] Comment on above: Performed By: #### C ITA, BMPX #### [address] [address] Cloth Measurer: Tony Yanez MD RBC (Bld) [#/Vol] 3.89 10*6/uL Low 4.21-5.77 [facility] Comment on above: Performed By: #### C ITA, BMPX #### [address] [address] Cloth Measurer: Tony Yanez MD WBC (Bld) [#/Vol] 4.9 10*3/uL Normal 3.5-11.3 [facility] Comment on above: Performed By: #### C DP, BMPX #### [address] [address] Cloth Measurer: Tony Yanez MD CT FACIAL BONES WO [...] SYSTEM PROVIDED HISTORY: Impact with object riding chili pepper grinder TECHNOLOGIST PROVIDED HISTORY: Impact with object riding chili pepper grinder Decision Support Exception - unselect if not [...] Augustin Hodges MD 08/16/21 Final result Normal [facility] MRSA DNA Probe, Nasalon - MRSA, DNA, Nasal Negative NEGATIVE [facility] Comment on above: NEGATIVE: MRSA DNA n ot detected by nucleic acid amplification. Results should be used as an adjunct to nosocomial control efforts to identify patients needing enhanced precautions. The test is not intended to identify patients with staphylococcal infections. Results should not be used to guide or monitor treatment for MRSA infections. Specimen Description .NASAL SWAB [facility] MRSA, DNA, Nasalon MRSA, DNA, Nasal Negative Normal NEG [facility] Comment on above: Result Comment: NEGA TIVE: MRSA DNA not detected by nucleic acid amplification. Results should be used as an adjunct to nosocomial control efforts to identify patients needing enhanced precautions. The test is not intended to identify patients with staphylococcal infections. Results should not be used to guide or monitor treatment for MRSA infections. Performed By: #### M [facility] #### [facility] [address] [place] [address] Cloth Measurer: Tony Yanez MD Specimen Description .NASAL SWAB Normal [facility] Comment on above: Performed By: #### M RSANO #### [facility] [address] [place] [address] Cloth Measurer: Tony Yanez MD CBC AUTO DIFFon 08-16-2021 BASO # 0.0 103/ul Normal 0.0-0.1 [facility] Comment on above: Performed By: #### C VDTBH #### [facility] [address] [place] [address] Dr. Natalya Arthur Basophils/100 WBC (Bld) 0.6 % Normal 0.2-2.0 [facility] Comment on above: Performed By: #### C VDTBH #### [facility] [address] [place] [address] Dr. Natalya Arthur EO # 0.1 103/ul Normal 0.0-0.7 [facility] Comment on above: Performed By: #### C VDTBH #### [facility] [address] [place] [address] Dr. Natalya Arthur Eosinophils/100 WBC (Bld) 1.9 % Normal 0.9-7.0 [facility] Comment on above: Performed By: #### C VDTBH #### [facility] [address] [place] [address] Dr. Natalya Arthur Erythrocyte distribution width (RBC) [Ratio] 13.1 % Normal 11.0-15.0 [facility] Comment on above: Performed By: #### C VDTBH #### [facility] [address] [place] [address] Dr. Natalya Arthur Hematocrit (Bld) [Volume fraction] 38.5 % Critically low 42.0-54.0 [facility] Comment on above: Performed By: #### C VDTBH #### [facility] [address] [place] [address] Dr. Natalya Arthur Hemoglobin (Bld) [Mass/Vol] 12.7 g/dL Critically low 14.0-18.0 [facility] Comment on above: Performed By: #### C VDTBH #### [facility] [address] [address] [address] Natalya Arthur IG # 0.03 10e3/ul Normal 0.00-0.03 [facility] Comment on above: Performed By: #### C VDTBH #### [facility] [address] [address] [address] Natalya Arthur IG % 0.6 % Critically high 0.0-0.5 [facility] Comment on above: Performed By: #### C VDTBH #### [facility] [address] [address] [address] Natalya Arthur LYMPH # 0.8 103/ul Critically low 1.2-3.8 [facility] Comment on above: Performed By: #### C VDTBH #### [facility] [address] [place] [address] Dr. Natalya Arthur Lymphocytes/100 WBC (Bld) 15.3 % Critically low 20.5-60.0 [facility] Comment on above: Performed By: #### C VDTBH #### [facility] [address] [place] [address] Dr. Natalya Arthur MANUAL DIFF REQ NO Normal [facility] Comment on above: Performed By: #### C VDTBH #### [facility] [address] [address] [address] Natalya Arthur MCH (RBC) [Entitic mass] 31.0 pg Normal 25.9-34.0 [facility] Comment on above: Performed By: #### C VDTBH #### [facility] [address] [address] [address] Natalya Arthur MCHC (RBC) [Mass/Vol] 33.0 g/dL Normal 29.9-35.2 [facility] Comment on above: Performed By: #### C VDTBH #### [facility] [address] [place] [address] Dr. Natalya Arthur MCV (RBC) [Entitic vol] 93.9 fL Normal 80.0-94.0 [facility] Comment on above: Performed By: #### C VDTBH #### [facility] [address] [place] [address] Dr. Natalya Arthur MONO # 0.4 103/ul Normal 0.3-0.8 [facility] Comment on above: Performed By: #### C VDTBH #### [facility] [address] [place] [address] Dr. Natalya Arthur Monocytes/100 WBC (Bld) 8.0 % Normal 1.7-12.0 [facility] Comment on above: Performed By: #### C VDTBH #### [facility] [address] [place] [address] Dr. Natalya Arthur NEUT # 3.8 103/ul Normal 1.4-6.5 [facility] Comment on above: Performed By: #### C VDTBH #### [facility] [address] [place] [address] Dr. Natalya Arthur Neutrophils/100 WBC (Bld) 73.6 % Normal 43.0-75.0 [facility] Comment on above: Performed By: #### C VDTBH #### [facility] [address] [place] [address] Dr. Natalya Arthur Platelet mean volume (Bld) [Entitic vol] 10.8 fL Normal 9.5-13.5 [facility] Comment on above: Performed By: #### C VDTBH #### [facility] [address] [place] [address] Dr. Natalya Arthur PLT 100 103/ul Critically low 150-450 [facility] Comment on above: Performed By: #### C VDTBH #### [facility] [address] [place] [address] Dr. Natalya Arthur RBC 4.10 106/ul Critically low 4.70-6.[address] [facility] Comment on above: Performed By: #### C VDTBH #### [facility] [address] [place] [address] Dr. Natalya Arthur WBC 5.2 103/ul Normal 4.0-11.0 [facility] Comment on above: Performed By: #### C [facility] #### [facility] [address] [address] [address] CSPINE WO CONon [...] by: ARTHUR LÓPEZ Date: 2021-08-16 17:00 Normal [facility] CT FACIAL BONES WO CONTRASTo n 08-16-2021 [...] SYSTEM PROVIDED HISTORY: Impact with object riding chili pepper grinder TECHNOLOGIST PROVIDED HISTORY: Impact with object riding chili pepper grinder Decision Support Exception - unselect if not [...] focus of subcutaneous emphysema left periorbital region. [facility] Augustin Frank MD - 08/16/2021 EXAMINATION: CT [...] SYSTEM PROVIDED HISTORY: Impact with object riding chili pepper grinder TECHNOLOGIST PROVIDED HISTORY: Impact with object riding chili pepper grinder Decision Support Exception - unselect if not [...] ecchymosis of the left face and scalp. [employer] Work Phone: CT FACIAL BONES WO CONTRASTO rdered By: Augustin Hodges on 08-16-2021 [employer] Phone: CT HEAD WO CONon 08-16-2021 CT [...] by: SUKH CROFT Date: 2021-08-16 15:37 Normal [facility] CT HEAD WO CONTRASTon 2021 CT HEAD [...] Hardeep Godwin MD 08/16/21 Final result Normal [facility] Minimal left frontal subarachnoid hemorrhage in 1 of the sulci. No evidence of extra-axial collections. Prominent left frontal and parietal scalp swelling/hemorrhage. The findings were sent to the Radiology Results Communication Center at 9:22 pm on 08/16/2021 to be communicated to a licensed caregiver. [facility] RIS CONSOLIDATED EXAMINATION: CT OF THE HEAD [...] TISSUES/SKULL: There is left frontoparietal scalp swelling/hemorrhage. [facility] Hardeep Hurley MD - 08/16/2021 EXAMINATION: CT [...] to be communicated to a licensed caregiver. [employer] Phone: CT HEAD WO CONTRASTOrdered B y: Hardeep Godwin on 08-16-2021 [employer] Phone: Covid-19 PCR (CVDTBH)on 07-24 SARS-CoV-2 (COVID-19) RNA GÓMEZ+probe Ql (Unsp spec) Not detected Normal NOT DETECTED [facility] Comment on above: Result Comment: This test is not yet approved or cleared by the [place] FDA. When there are no FDA-approved or cleared tests available, and other criteria are met, FDA can make tests available under an emergency access mechanism called an Emergency Use Authorization (EUA). The EUA for this test is supported by the [place] of Health and Human Service's (HHS's) declaration [...] SARS-CoV-2. Performed By: #### C VDTBH #### [facility] [address] [place] [address] Dr. Natalya Arthur No Panel Informationon 08-16 Radiology Study observation (narrative) [facility] Work Phone: PROF CHEM 8 (BAS METB)on Anion gap [Moles/Vol] 13.6 mmol/L Normal [facility] Comment on above: Performed By: #### C VDTBH #### [facility] [address] [place] [address] Dr. Natalya Arthur Calcium [Mass/Vol] 9.0 mg/dL Normal 8.5-10.1 [facility] Comment on above: Performed By: #### C VDTBH #### [facility] [address] [place] [address] Dr. Natalya Arthur Chloride [Moles/Vol] 107 mmol/L Normal 98-107 [facility] Comment on above: Performed By: #### C VDTBH #### [facility] [address] [place] [address] Dr. Natalya Arthur CO2 [Moles/Vol] 24.4 mmol/L Normal 21.0-32.0 [facility] Comment on above: Performed By: #### C VDTBH #### [facility] [address] [place] [address] Dr. Natalya Arthur Creatinine [Mass/Vol] 1.09 mg/dL Normal 0.70-1.30 [facility] Comment on above: Performed By: #### C VDTBH #### [facility] [address] [place] [address] Dr. Natalya Arthur EGFR-AF MONGOLIAN >60 Normal >=60 [facility] Comment on above: Performed By: #### C VDTBH #### [facility] [address] [place] [address] Dr. Natalya Arthur EGFR-NON AF MONGOLIAN >60 Normal >=60 [facility] Comment on above: Performed By: #### C VDTBH #### [facility] [address] [place] [address] Dr. Natalya Arthur Glucose [Mass/Vol] 111 mg/dL Critically high 74-106 [facility] Comment on above: Performed By: #### C VDTBH #### [facility] [address] [place] [address] Dr. Natalya Arthur Potassium [Moles/Vol] 4.0 mmol/L Normal 3.5-5.1 [facility] Comment on above: Performed By: #### C VDTBH #### [facility] [address] [place] [address] Dr. Natalya Arthur Sodium [Moles/Vol] 141 mmol/L Normal 136-145 [facility] Comment on above: Performed By: #### C VDTBH #### [facility] [address] [place] [address] Dr. Natalya Arthur Urea nitrogen [Mass/Vol] 21.0 mg/dL Critically high 7.0-18.0 [facility] Comment on above: Performed By: #### C VDTBH #### [facility] [address] [place] [address] Dr. Natalya Arthur Urea nitrogen/Creatinine [Mass ratio] 19.3 mg/mg Normal [facility] Comment on above: Performed By: #### C VDTBH #### [facility] [address] [place] [address] Dr. Natalya Arthur PROTIMEon 08-16-2021 INR Coag (PPP) [Relative time] 1.12 {INR} Normal [facility] Comment on above: Performed By: #### F ETIBC, FERR #### [facility] [address] [place] [address] Dr. Natalya Arthur INR GUIDELINES SEE BELOW Normal [facility] Comment on above: Result Comment: REFUGIO RED INR: 2.0 - 3.0 CONDITIONS NOT LISTED BELOW 2.5 - 3.5 FOR PROSTHETIC HEART VALVE REPLACEMENT 2.5 - 3.5 RECURRENT THROMBOSIS Performed By: #### F ETIBC, FERR #### [facility] [address] [place] [address] Dr. Natalya Arthur PT Coag (PPP) [Time] 12.0 s Critically high 9.0-11.6 [facility] Comment on above: Performed By: #### F ETIBC, FERR #### [facility] [address] [place] [address] Dr. Natalya Arthur PTTon 08-16-2021 aPTT Coag (Bld) [Time] 28.6 s Normal 22.3-36.2 [facility] Comment on above: Performed By: #### F ETIBC, FERR #### [facility] [address] [place] [address] Dr. Natalya Arthur [id number] 2021 [id number], Serum 125 mg/dL Normal 101-187 [facility] Comment on above: Performed By: #### A LPHA-1 #### [facility] [address] [place] [address] Dr. Natalya Arthur BETHANIE EIA W/REFLEX 5 BIOMARKER Son 07-13-2021 BETHANIE Direct Negative Normal Negative [facility] Comment on above: Performed By: #### C VDTBH #### [facility] [address] [place] [address] Dr. Natalya Arthur CERULOPLASMINon 07-13-2021 Ceruloplasmin 19.0 mg/dL Normal 16.0-31.0 [facility] Comment on above: Performed By: #### C EUROPL #### [facility] [address] [place] [address] Dr. Natalya Arthur SMOOTH MUSCLE ANTIBODYon Actin (Smooth Muscle) Antibody 25 Units Critically high 0-19 [facility] Comment on above: Result Comment: Nega tive 0 - 19 Weak positive 20 - 30 Moderate to strong positive >30 . Actin Antibodies are found in 52-85% of patients with autoimmune hepatitis or chronic active hepatitis and in 22% of patients with primary biliary cirrhosis. Performed By: #### C VDTBH #### [facility] [address] [place] [address] Dr. Natalya Arthur CBC AUTO DIFFon 07-12-2021 BASO # 0.0 103/ul Normal 0.0-0.1 [facility] Comment on above: Performed By: #### F ETIBC, FERR #### [facility] [address] [place] [address] Dr. Natalya Arthur Basophils/100 WBC (Bld) 0.4 % Normal 0.2-2.0 [facility] Comment on above: Performed By: #### F ETIBC, FERR #### [facility] [address] [place] [address] Dr. Natalya Arthur EO # 0.2 103/ul Normal 0.0-0.7 [facility] Comment on above: Performed By: #### F ETIBC, FERR #### [facility] [address] [place] [address] Dr. Natalya Arthur Eosinophils/100 WBC (Bld) 4.0 % Normal 0.9-7.0 [facility] Comment on above: Performed By: #### F ETIBC, FERR #### [facility] [address] [place] [address] Dr. Natalya Arthur Erythrocyte distribution width (RBC) [Ratio] 13.8 % Normal 11.0-15.0 [facility] Comment on above: Performed By: #### F ETIBC, FERR #### [facility] [address] [place] [address] Dr. Natalya Arthur Hematocrit (Bld) [Volume fraction] 41.5 % Critically low 42.0-54.0 [facility] Comment on above: Performed By: #### F ETIBC, FERR #### [facility] [address] [address] [address] Natalya Arthur Hemoglobin (Bld) [Mass/Vol] 13.2 g/dL Critically low 14.0-18.0 [facility] Comment on above: Performed By: #### F ETIBC, FERR #### [facility] [address] [address] [address] Natalya Arthur IG # 0.02 10e3/ul Normal 0.00-0.03 [facility] Comment on above: Performed By: #### F ETIBC, FERR #### [facility] [address] [place] [address] Dr. Natalya Arthur IG % 0.4 % Normal 0.0-0.5 [facility] Comment on above: Performed By: #### F ETIBC, FERR #### [facility] [address] [place] [address] Dr. Natalya Arthur LYMPH # 0.8 103/ul Critically low 1.2-3.8 [facility] Comment on above: Performed By: #### F ETIBC, FERR #### [facility] [address] [place] [address] Dr. Natalya Arthur Lymphocytes/100 WBC (Bld) 17.0 % Critically low 20.5-60.0 [facility] Comment on above: Performed By: #### F ETIBC, FERR #### [facility] [address] [place] [address] Dr. Natalya Arthur MANUAL DIFF REQ NO Normal [facility] Comment on above: Performed By: #### F ETIBC, FERR #### [facility] [address] [place] [address] Dr. Natalya Arthur MCH (RBC) [Entitic mass] 30.9 pg Normal 25.9-34.0 [facility] Comment on above: Performed By: #### F ETIBC, FERR #### [facility] [address] [place] [address] Dr. Natalya Arthur MCHC (RBC) [Mass/Vol] 31.8 g/dL Normal 29.9-35.2 [facility] Comment on above: Performed By: #### F ETIBC, FERR #### [facility] [address] [place] [address] Dr. Natalya Arthur MCV (RBC) [Entitic vol] 97.2 fL Critically high 80.0-94.0 [facility] Comment on above: Performed By: #### F ETIBC, FERR #### [facility] [address] [place] [address] Dr. Natalya Arthur MONO # 0.5 103/ul Normal 0.3-0.8 [facility] Comment on above: Performed By: #### F ETIBC, FERR #### [facility] [address] [place] [address] Dr. Natalya Arthur Monocytes/100 WBC (Bld) 10.5 % Normal 1.7-12.0 [facility] Comment on above: Performed By: #### F ETIBC, FERR #### [facility] [address] [place] [address] Dr. Natalya Arthur NEUT # 3.2 103/ul Normal 1.4-6.5 [facility] Comment on above: Performed By: #### F ETIBC, FERR #### [facility] [address] [place] [address] Dr. Natalya Arthur Neutrophils/100 WBC (Bld) 67.7 % Normal 43.0-75.0 [facility] Comment on above: Performed By: #### F ETIBC, FERR #### [facility] [address] [place] [address] Dr. Natalya Arthur Platelet mean volume (Bld) [Entitic vol] 10.7 fL Normal 9.5-13.5 [facility] Comment on above: Performed By: #### F ETIBC, FERR #### [facility] [address] [place] [address] Dr. Natalya Arthur PLT 106 103/ul Critically low 150-450 [facility] Comment on above: Result Comment: smea r reviewed Performed By: #### F ETIBC, FERR #### [facility] [address] [place] [address] Dr. Natalya Arthur RBC 4.27 106/ul Critically low 4.70-6.[address] [facility] Comment on above: Performed By: #### F ETIBC, FERR #### [facility] [address] [place] [address] Dr. Natalya Arthur WBC 4.8 103/ul Normal 4.0-11.0 [facility] Comment on above: Performed By: #### F ETIBC, FERR #### [facility] [address] [place] [address] Dr. Natalya Arthur FERRITINon 07-12-2021 Ferritin [Mass/Vol] 94.0 ng/mL Normal 17.9-464.0 The [facility] Comment on above: Performed By: #### F ETIBC, FERR #### [facility] [address] [place] [address] Dr. Natalya Arthur IRON AND TIBCon 07-12-2021 % SATURATION 26.8 % Normal [facility] Comment on above: Performed By: #### F ETIBC, FERR #### [facility] [address] [place] [address] Dr. Natalya Arthur Iron [Mass/Vol] 106.0 ug/dL Normal 49.0-181.0 [facility] Comment on above: Performed By: #### F ETIBC, FERR #### [facility] [address] [place] [address] Dr. Natalya Arthur TIBC DIRECT 395.0 ug/dL Normal 261.0-497. 0 [facility] Comment on above: Performed By: #### F ETIBC, FERR #### [facility] [address] [place] [address] Dr. Natalya Arthur LIPID PROFILEon 07-12-2021 CHOL-HDL RATIO NORM SEE BELOW Normal The [facility] Comment on above: Result Comment: 3.3 - 4.4 LOW RISK 4.4 - 7.1 AVERAGE RISK 7.1 - 11.0 MODERATE RISK >11.0 HIGH RISK Performed By: #### L IVER, LIPID #### [facility] [address] [place] [address] Dr. Natalya Arthur Cholesterol [Mass/Vol] 139 mg/dL Normal <=200 [facility] Comment on above: Performed By: #### L IVGAVIN, LIPID #### [facility] [address] [address] [address] Natalya Arthur Cholesterol in HDL [Mass/Vol] 58 mg/dL Normal 40-60 [facility] Comment on above: Performed By: #### L IVGAVIN, LIPID #### [facility] [address] [address] [address] Natalya Arthur Cholesterol in LDL [Mass/Vol] 58.8 mg/dL Normal [facility] Comment on above: Performed By: #### L IVGAVIN, LIPID #### [facility] [address] [place] [address] Dr. Natalya Arthur Cholesterol.total/Chol esterol in HDL [Mass ratio] 2.4 {ratio} Normal [facility] Comment on above: Performed By: #### L IVGAVIN, LIPID #### [facility] [address] [address] [address] Natalya Arthur HDL NORMAL > or = 60 mg/dl - LO W CARDIOVASCULAR RISK <40 mg/dl - HIGH CARDIOVASCULAR RISK Normal [facility] Comment on above: Performed By: #### L IVGAVIN, LIPID #### [facility] [address] [place] [address] Dr. Natalya Arthur LDL CALC NORMAL SEE BELOW Normal [facility] Comment on above: Result Comment: <100 mg/dl OPTIMAL 100 - 129 mg/dl NEAR OR ABOVE OPTIMAL 130 - 159 mg/dl BORDERLINE HIGH 160 - 189 mg/dl HIGH >190 mg/dl VERY HIGH Performed By: #### L IVER, LIPID #### [facility] [address] [address] [address] Natalya Arthur Triglyceride [Mass/Vol] 111 mg/dL Normal <=150 [facility] Comment on above: Performed By: #### L IVER, LIPID #### [facility] [address] [address] [address] Natalya Arthur VLDL CALC 22.2 mg/dL Normal [facility] Comment on above: Performed By: #### L IVER, LIPID #### [facility] [address] [address] [address] Natalya Arthur LIVER PROFILEon 07-12-2021 Albumin [Mass/Vol] 3.4 g/dL Normal 3.4-5.0 [facility] Comment on above: Performed By: #### L IVER, LIPID #### [facility] [address] [address] [address] Natalya Arthur Albumin/Globulin [Mass ratio] 0.9 {ratio} Normal [facility] Comment on above: Performed By: #### L IVER, LIPID #### [facility] [address] [address] [address] Natalya Arthur ALP [Catalytic activity/Vol] 129 U/L Critically high 46-116 [facility] Comment on above: Performed By: #### L IVER, LIPID #### [facility] [address] [place] [address] Dr. Natalya Arthur ALT [Catalytic activity/Vol] 72 U/L Critically high 16-63 [facility] Comment on above: Performed By: #### L IVER, LIPID #### [facility] [address] [address] [address] Natalya Arthur AST [Catalytic activity/Vol] 57 U/L Critically high 15-37 [facility] Comment on above: Performed By: #### L IVER, LIPID #### [facility] [address] [address] [address] Natalya Arthur BILI, CONJUGATED 0.2 mg/dL Normal 0.0-0.3 [facility] Comment on above: Performed By: #### L IVER, LIPID #### [facility] [address] [address] [address] Natalya Arthur Bilirubin [Mass/Vol] 0.6 mg/dL Normal 0.2-1.3 [facility] Comment on above: Performed By: #### L IVER, LIPID #### [facility] [address] [address] [address] Natalya Arthur Globulin (S) [Mass/Vol] 3.9 g/dL Normal [facility] Comment on above: Performed By: #### L IVER, LIPID #### [facility] [address] [address] [address] Natalya Arthur Protein [Mass/Vol] 7.3 g/dL Normal 6.1-8.2 [facility] Comment on above: Performed By: #### L IVER, LIPID #### [facility] [address] [address] [address] Natalya Arthur PROTIMEon 07-12-2021 INR Coag (PPP) [Relative time] 1.10 {INR} Normal [facility] Comment on above: Performed By: #### F ETIBC, FERR #### [facility] [address] [place] [address] Dr. Natalya Arthur INR GUIDELINES SEE BELOW Normal [facility] Comment on above: Result Comment: REFUGIO RED INR: 2.0 - 3.0 CONDITIONS NOT LISTED BELOW 2.5 - 3.5 FOR PROSTHETIC HEART VALVE REPLACEMENT 2.5 - 3.5 RECURRENT THROMBOSIS Performed By: #### F ETIBC, FERR #### [facility] [address] [place] [address] Dr. Natalya Arthur PT Coag (PPP) [Time] 11.8 s Critically high 9.0-11.6 [facility] Comment on above: Performed By: #### F ETIBC, FERR #### [facility] [address] [place] [address] Dr. Natalya Arthur Comprehensive Metabolic Pane ross 06-07-2021 Albumin [Mass/Vol] 3.9 g/dL Normal 3.6-5.1 [facility] Aid Advisor Comment on above: Performed By: #### C MP #### [facility] [address] [id number] Albumin/Globulin [Mass ratio] 1.4 {ratio} Normal 1.0-2.5 [facility] Comment on above: Performed By: #### C MP #### [facility] [address] [place] [id number] ALP [Catalytic activity/Vol] 128 U/L Normal 40-129 [facility] Comment on above: Performed By: #### C MP #### [facility] [address] [place], [place] [id number] ALT [Catalytic activity/Vol] 45 U/L Normal 9-46 [facility] Comment on above: Result Comment: 02/22 Female reference range changed. Performed By: #### C MP #### [facility] [address] [facility] [place] [place] [id number] Anion gap [Moles/Vol] 15 mmol/L Normal 12-20 [facility] Comment on above: Result Comment: Effe ctive 03/30/2019 reference range changed. Performed By: #### C MP #### [facility] [address] [facility] [id number] AST [Catalytic activity/Vol] 49 U/L High 10-40 [facility] Comment on above: Performed By: #### C MP #### [facility] [address] [place], [place] [id number] Bilirubin [Mass/Vol] 0.36 mg/dL Normal 0.30-1.20 [facility] Comment on above: Performed By: #### C MP #### [facility] [address] [place], [place] [id number] BUN/CREA 15 Ratio Normal 6-22 [facility] Comment on above: Performed By: #### C MP #### [facility] [address] [place], [place] [id number] Calcium [Mass/Vol] 9.2 mg/dL Normal 8.6-10.2 [facility] Comment on above: Performed By: #### C MP #### [facility] [address] [facility] [id number] Chloride [Moles/Vol] 104 mmol/L Normal 98-107 [facility] Comment on above: Performed By: #### C MP #### [facility] [address] [facility] [place] [id number] CO2 [Moles/Vol] 24 mmol/L Normal 20-31 [facility] Comment on above: Performed By: #### C MP #### [facility] [address] [facility] [place] [id number] Creatinine [Mass/Vol] 1.0 mg/dL Normal 0.7-1.4 [facility] Comment on above: Performed By: #### C MP #### [facility] [address] [place], [place] [id number] eGFRAA 90 mL/min/1.73m2 Normal >60 [facility] Comment on above: Performed By: #### C MP #### [facility] [address] [place], [place] [id number] eGFRNAA 74 mL/min/1.73m2 Normal >60 [facility] Financial Aid Advisor Comment on above: Performed By: #### C MP #### [facility] [address] [place], [place] [id number] Globulin (S) [Mass/Vol] 2.7 g/dL Normal 1.9-3.7 [facility] Aid Advisor Comment on above: Performed By: #### C MP #### [facility] [address] [place], [place] [id number] Glucose [Mass/Vol] 111 mg/dL High 65-99 [facility] Financial Aid Advisor Comment on above: Result Comment: For FASTING Glucose --- ADA reference ranges: Normal 65-99 mg/dl Prediabetes 100-125 Diabetes >/= 126 Performed By: #### C MP #### [facility] [address] [place], [place] [id number] Potassium [Moles/Vol] 4.5 mmol/L Normal 3.5-5.5 [facility] Comment on above: Performed By: #### C MP #### [facility] [address] [place], [place] [id number] Protein [Mass/Vol] 6.6 g/dL Normal 6.1-8.1 [facility] Financial Aid Advisor Comment on above: Performed By: #### C MP #### [facility] [address] [place], [place] [id number] Sodium [Moles/Vol] 139 mmol/L Normal 135-146 [facility] Financial Aid Advisor Comment on above: Performed By: #### C MP #### [facility] [address] [place], [place] [id number] Urea nitrogen [Mass/Vol] 15 mg/dL Normal 7-25 [facility] Financial Aid Advisor Comment on above: Performed By: #### C MP #### [facility] [address] [place], [place] [id number] Q - HEPATITIS PANEL ABC GENE RAL WITH REFLEXon 06-07-2021 HEPATITIS A AB, TOTAL Non-Reactive Normal NON-RE ACTI VE [facility] Comment on above: Order Comment: [facility] performed at: [employer], [facility] [facility], [address] [place] [address], [address] [place] [address], [address] [place] [address], [employer]ovator Machine Operator: Sd Sharma MD [facility] Collection Date/Time: [facility] Results Received Date/Time: [facility] Reported Date/Time: Result Comment: For additional information, please refer to http://education.PureSense/faq/QCG051 (This link is being provided for informational/ educational purposes only.) Performed By: #### 6 [id number] #### [facility] [address] [place] [address] HEPATITIS B CORE AB TOTAL Non-Reactive Normal NON-REACTI VE [facility] Comment on above: Order Comment: [facility] performed at: [employer] [facility], [address] [place] [address], [address] [place] [address], [address] [place] [address], [employer]ovator Machine Operator: Sd Sharma MD [facility] Date/Time: [facility] Results Received Date/Time: [facility] Reported Date/Time: Performed By: #### 6 [id number] #### [facility] [address] [place] [address] HEPATITIS B SURFACE ANTIBODY QL Non-Reactive Normal NON-REACTI VE [facility] Comment on above: Order Comment: [facility] performed at: [employer] [facility], [address] [place] [address], [address] [place] [address], [address] [place] [address], [employer]ovator Machine Operator: Sd Sharma MD [facility] Date/Time: [facility] Results Received Date/Time: [facility] Reported Date/Time: Performed By: #### 6 [id number] #### [facility] [address] [place] [address] HEPATITIS B SURFACE ANTIGEN Non-Reactive Normal NON-REACTI VE [facility] Comment on above: Order Comment: [facility] performed at: [employer], [employer] [facility], [address] [facility], [address] [place] [address], [address] [place] [address], Renovator Machine Operator: Sd Sharma MD [facility] Date/Time: [facility] Results Received Date/Time: [facility] Reported Date/Time: Performed By: #### 6 [id number] #### [facility] [address] [place] [address] HEPATITIS C ANTIBODY Non-Reactive Normal NON-AMANDA CTI VE [facility] Comment on above: Order Comment: [facility] performed at: [employer], [employer] [facility], [address] [place] [address], [address] [place] [address], [address] [place] [address], [employer]ovator Machine Operator: Sd Sharma MD [facility] Date/Time: [facility] Results Received Date/Time: [facility] Reported Date/Time: Performed By: #### 6 [id number] #### [facility] [address] [place] [address] SIGNAL TO CUT-OFF 0.02 Normal <1.00 [facility] Comment on above: Order Comment: [facility] performed at: [employer], [employer] [facility], [address] [place] [address], [address] [place] [address], [address] [place] [address], Renovator Machine Operator: Sd Sharma MD [facility] Date/Time: [facility] Results Received Date/Time: [facility] Reported Date/Time: Result Comment: HCV antibody was non-reactive. There is no laboratory evidence of HCV infection. In most cases, no further action is required. However, if recent HCV exposure is suspected, a test for HCV RNA (test code 20261) is suggested. For additional information please refer to http://education.PureSense/faq/XWH69k5 (This link is being provided for informational/ educational purposes only.) Performed By: #### [id number] #### [facility] [address] [place] [address] Complete Blood Count with Au to Diffon 05-01-2021 Basophils (Bld) [#/Vol] 0.05 10*3/uL Normal 0.00-0.20 [facility] Comment on above: Performed By: #### C BCAD, CMP, VITD, TSH reflex FT4, LIPD #### [facility] [address] [place], [place] [id number] Basophils/100 WBC (Bld) 1.1 % Normal [facility] Comment on above: Performed By: #### C BCAD, CMP, VITD, TSH reflex FT4, LIPD #### [facility] [address] [place], [place] [id number] Eosinophils (Bld) [#/Vol] 0.29 10*3/uL Normal 0.02-0.50 [facility] Comment on above: Performed By: #### C BCAD, CMP, VITD, TSH reflex FT4, LIPD #### [facility] [address] [place], [place] [id number] Eosinophils/100 WBC (Bld) 6.3 % Normal [facility] Comment on above: Performed By: #### C BCAD, CMP, VITD, TSH reflex FT4, LIPD #### [facility] [address] [place], [place] [id number] Erythrocyte distribution width (RBC) [Ratio] 12.9 % Normal 11.0-15.0 [facility] Comment on above: Performed By: #### C BCAD, CMP, VITD, TSH reflex FT4, LIPD #### [facility] [address] [place], [place] [id number] Hematocrit (Bld) [Volume fraction] 40.4 % Normal 38.5-50.0 [facility] Comment on above: Performed By: #### C BCAD, CMP, VITD, TSH reflex FT4, LIPD #### [facility] [address] [place], [place] [id number] Hemoglobin (Bld) [Mass/Vol] 13.1 g/dL Normal 13.0-17.1 [facility] Comment on above: Performed By: #### C BCAD, CMP, VITD, TSH reflex FT4, LIPD #### [facility] [address] [place], [place] [id number] Lymphocytes (Bld) [#/Vol] 0.9 10*3/uL Normal 0.9-3.9 [facility] [facility] Comment on above: Performed By: #### C BCAD, CMP, VITD, TSH reflex FT4, LIPD #### [facility] [address] [place], [place] [id number] Lymphocytes/100 WBC (Bld) 18.6 % Normal [facility] Comment on above: Performed By: #### C BCAD, CMP, VITD, TSH reflex FT4, LIPD #### [facility] [address], [place] [id number] MCH (RBC) [Entitic mass] 31.0 pg Normal 27.0-33.0 [facility] Comment on above: Performed By: #### C BCAD, CMP, VITD, TSH reflex FT4, LIPD #### [facility] [address], [place] [id number] MCHC (RBC) [Mass/Vol] 32.4 g/dL Normal 32.0-36.0 [facility] Comment on above: Performed By: #### C BCAD, CMP, VITD, TSH reflex FT4, LIPD #### [facility] [address], [place] [id number] MCV (RBC) [Entitic vol] 96 fL Normal 80-100 [facility] Comment on above: Performed By: #### C BCAD, CMP, VITD, TSH reflex FT4, LIPD #### [facility] [address], [place] [id number] Monocytes (Bld) [#/Vol] 0.4 10*3/uL Normal 0.2-0.9 [facility] Comment on above: Performed By: #### C BCAD, CMP, VITD, TSH reflex FT4, LIPD #### [facility] [address], [place] [id number] Monocytes/100 WBC (Bld) 8.4 % Normal [facility] Comment on above: Performed By: #### C BCAD, CMP, VITD, TSH reflex FT4, LIPD #### [facility] [address], [place] [id number] Neutrophils (Bld) [#/Vol] 3.0 10*3/uL Normal 1.5-7.8 [facility] Comment on above: Performed By: #### C BCAD, CMP, VITD, TSH reflex FT4, LIPD #### [facility] [address], [place] [id number] Neutrophils/100 WBC (Bld) 65.4 % Normal [facility] Comment on above: Performed By: #### C BCAD, CMP, VITD, TSH reflex FT4, LIPD #### [facility] [address], [place] [id number] Platelet mean volume (Bld) [Entitic vol] 10.20 fL Normal 7.50-12.50 [facility] Comment on above: Performed By: #### C BCAD, CMP, VITD, TSH reflex FT4, LIPD #### [facility] [address], [place] [id number] Platelets (Bld) [#/Vol] 141 10*3/uL Normal 140-400 [facility] Comment on above: Performed By: #### C BCAD, CMP, VITD, TSH reflex FT4, LIPD #### [facility] [address], [place] [id number] RBC (Bld) [#/Vol] 4.22 10*6/uL Normal 4.20-5.80 [facility] Special[facility] Comment on above: Performed By: #### C BCAD, CMP, VITD, TSH reflex FT4, LIPD #### [facility] [address], [place] [id number] RDW-SD 45.2 fL Normal 37.0-50.0 [facility] Comment on above: Performed By: #### C BCAD, CMP, VITD, TSH reflex FT4, LIPD #### [facility] [address], [place] [id number] WBC (Bld) [#/Vol] 4.6 10*3/uL Normal 3.8-11.0 [facility] [place] [facility] Comment on above: Performed By: #### C BCAD, CMP, VITD, TSH reflex FT4, LIPD #### [facility] [address], [place] [id number] Comprehensive Metabolic Pane ross 05-01-2021 Albumin [Mass/Vol] 4.0 g/dL Normal 3.6-5.1 [facility] [place] [facility] Comment on above: Performed By: #### C BCAD, CMP, VITD, TSH reflex FT4, LIPD #### [facility] [address], [place] [id number] Albumin/Globulin [Mass ratio] 1.5 {ratio} Normal 1.0-2.5 [facility] Comment on above: Performed By: #### C BCAD, CMP, VITD, TSH reflex FT4, LIPD #### [facility] [address], [place] [id number] ALP [Catalytic activity/Vol] 140 U/L High 40-129 [facility] Comment on above: Performed By: #### C BCAD, CMP, VITD, TSH reflex FT4, LIPD #### [facility] [address], [place] [id number] ALT [Catalytic activity/Vol] 63 U/L High 9-46 [facility] Comment on above: Result Comment: 02/22 Female reference range changed. Performed By: #### C BCAD, CMP, VITD, TSH reflex FT4, LIPD #### [facility] [address], [place] [id number] Anion gap [Moles/Vol] 17 mmol/L Normal 12-20 [facility] Comment on above: Result Comment: Effe ctive 03/30/2019 reference range changed. Performed By: #### C BCAD, CMP, VITD, TSH reflex FT4, LIPD #### [facility] [address], [place] [id number] AST [Catalytic activity/Vol] 62 U/L High 10-40 [facility] Comment on above: Performed By: #### C BCAD, CMP, VITD, TSH reflex FT4, LIPD #### [facility] [address], [place] [id number] Bilirubin [Mass/Vol] 0.41 mg/dL Normal 0.30-1.20 [facility] Comment on above: Performed By: #### C BCAD, CMP, VITD, TSH reflex FT4, LIPD #### [facility] [address], [place] [id number] BUN/CREA 13 Ratio Normal 6-22 [facility] Comment on above: Performed By: #### C BCAD, CMP, VITD, TSH reflex FT4, LIPD #### [facility] [address], [place] [id number] Calcium [Mass/Vol] 9.5 mg/dL Normal 8.6-10.2 [facility] Comment on above: Performed By: #### C BCAD, CMP, VITD, TSH reflex FT4, LIPD #### [facility] [address], [place] [id number] Chloride [Moles/Vol] 106 mmol/L Normal 98-107 [facility] Comment on above: Performed By: #### C BCAD, CMP, VITD, TSH reflex FT4, LIPD #### [facility] [address], [place] [id number] CO2 [Moles/Vol] 26 mmol/L Normal 20-31 [facility] Comment on above: Performed By: #### C BCAD, CMP, VITD, TSH reflex FT4, LIPD #### [facility] [address], [place] [id number] Creatinine [Mass/Vol] 0.9 mg/dL Normal 0.7-1.4 [facility] Comment on above: Performed By: #### C BCAD, CMP, VITD, TSH reflex FT4, LIPD #### [facility] [address], [place] [id number] eGFRAA 99 mL/min/1.73m2 Normal >60 [facility] Comment on above: Performed By: #### C BCAD, CMP, VITD, TSH reflex FT4, LIPD #### [facility] [address], [place] [id number] eGFRNAA 81 mL/min/1.73m2 Normal >60 [facility] Comment on above: Performed By: #### C BCAD, CMP, VITD, TSH reflex FT4, LIPD #### [facility] [address], [place] [id number] Globulin (S) [Mass/Vol] 2.6 g/dL Normal 1.9-3.7 [facility] Comment on above: Performed By: #### C BCAD, CMP, VITD, TSH reflex FT4, LIPD #### [facility] [address], [place] [id number] Glucose [Mass/Vol] 89 mg/dL Normal 65-99 Arias [facility] [place] [facility] Comment on above: Result Comment: For FASTING Glucose --- ADA reference ranges: Normal 65-99 mg/dl Prediabetes 100-125 Diabetes >/= 126 Performed By: #### C BCAD, CMP, VITD, TSH reflex FT4, LIPD #### [facility] [address], [place] [id number] Potassium [Moles/Vol] 5.0 mmol/L Normal 3.5-5.5 [facility] Specialist Comment on above: Performed By: #### C BCAD, CMP, VITD, TSH reflex FT4, LIPD #### [facility] [address], [place] [id number] Protein [Mass/Vol] 6.6 g/dL Normal 6.1-8.1 [facility] [place] [facility] Comment on above: Performed By: #### C BCAD, CMP, VITD, TSH reflex FT4, LIPD #### [facility] [address], [place] [id number] Sodium [Moles/Vol] 143 mmol/L Normal 135-146 Arias damon [place] [facility] Comment on above: Performed By: #### C BCAD, CMP, VITD, TSH reflex FT4, LIPD #### [facility] [address], [place] [id number] Urea nitrogen [Mass/Vol] 12 mg/dL Normal 7-25 [facility] Comment on above: Performed By: #### C BCAD, CMP, VITD, TSH reflex FT4, LIPD #### [facility] [address], [place] [id number] Lipid Panelon 05-01-2021 Cholesterol [Mass/Vol] 135 mg/dL Normal 125-200 [facility] Comment on above: Result Comment: Low risk < 200mg/dL Borderline risk 201-239 mg/dl High risk > or equal to 240 Performed By: #### C BCAD, CMP, VITD, TSH reflex FT4, LIPD #### [facility] [address], [place] [id number] Cholesterol in HDL [Mass/Vol] 44 mg/dL Normal >40 [facility] Comment on above: Result Comment: High Cardiovascular Risk HDL <40 mg/dL Low Cardiovascular Risk HDL > or equal to 60 mg/dl Performed By: #### C BCAD, CMP, VITD, TSH reflex FT4, LIPD #### [facility] [address], [place] [id number] Cholesterol in LDL [Mass/Vol] 65 mg/dL Normal [facility] Comment on above: Result Comment: LDL ATP III CLASSIFICATION LDL less than 100 mg/dl Optimal LDL 100-129 mg/dl Near or above optimal LDL 130-159 Borderline high LDL 160-189 High LDL greater than 189 mg/dl Very High Performed By: #### C BCAD, CMP, VITD, TSH reflex FT4, LIPD #### [facility] [address], [place] [id number] Cholesterol in VLDL [Mass/Vol] 26 mg/dL Normal [facility] Comment on above: Performed By: #### C BCAD, CMP, VITD, TSH reflex FT4, LIPD #### [facility] [address], [place] [id number] Cholesterol.total/Chol esterol in HDL [Mass ratio] 3 {ratio} Normal [facility] Comment on above: Performed By: #### C BCAD, CMP, VITD, TSH reflex FT4, LIPD #### [facility] [address], [place] [id number] Triglyceride [Mass/Vol] 130 mg/dL Normal 30-150 [facility] Comment on above: Result Comment: TRIG ATPIII CLASSIFICATIONS TRIG less than 150 mg/dl Normal TRIG 150-199 mg/dl Borderline High TRIG 200-500 mg/dl High TRIG greather than 500 mg/dl Very High Performed By: #### C BCAD, CMP, VITD, TSH reflex FT4, LIPD #### [facility] [address], [place] [id number] PSA SCREEN (MEDICARE)on TPSA 0.983 ng/mL Normal <4.000 [facility] Ad[facility] Comment on above: Result Comment: PSA Test Method: ECLIA/Mick e 601 Performed By: #### P #### [facility] [address], [place] [id number] TSH w/ Reflex to Free T4on 0 05-01-2021 TSH 1.150 uIU/mL Normal 0.400-4.50 0 [facility] Ad[facility] Comment on above: Performed By: #### C BCAD, CMP, VITD, TSH reflex FT4, LIPD #### [facility] [address], [place] [id number] Vitamin D 25-OHon 05-01-2021 VIT D 25 OH 32 ng/ml Normal >29 [facility] Advisor Comment on above: Result Comment: Maria E min D Status Deficiency <20 ng/mL Insufficiency 20-29 ng/mL Optimal 30-100 ng/mL Possible Toxicity >=150 ng/mL Performed By: #### C BCAD, CMP, VITD, TSH reflex FT4, LIPD #### [facility] [address], [place] [id number] Covid-19 PCR (CVDTBH)on SARS-CoV-2 (COVID-19) RNA GÓMEZ+probe Ql (Unsp spec) Not detected Normal NOT DETECTED [facility] Comment on above: Result Comment: This test is not yet approved or cleared by the [place] FDA. When there are no FDA-approved or cleared tests available, and other criteria are met, FDA can make tests available under an emergency access mechanism called an Emergency Use Authorization (EUA). The EUA for this test is supported by the [place] of Health and Human Service's (HHS's) declaration [...] Performed By: #### F ETIBC, FERR #### [facility] [address] [place] [address] Dr. Natalya Arthur CBC AUTO DIFFon 02-03-2021 BASO # 0.0 103/ul Normal 0.0-0.1 [facility] Comment on above: Performed By: #### C BC #### [facility] [address] [place] [address] Dr. Natalya Arthur Basophils/100 WBC (Bld) 0.3 % Normal 0.2-2.0 [facility] Comment on above: Performed By: #### C BC #### [facility] [address] [place] [address] Dr. Natalya Arthur EO # 0.0 103/ul Normal 0.0-0.7 [facility] Comment on above: Performed By: #### C BC #### [facility] [address] [place] [address] Dr. Natalya Arthur Eosinophils/100 WBC (Bld) 0.1 % Critically low 0.9-7.0 [facility] Comment on above: Performed By: #### C BC #### [facility] [address] [place] [address] Dr. Natalya Arthur Erythrocyte distribution width (RBC) [Ratio] 13.2 % Normal 11.0-15.0 [facility] Comment on above: Performed By: #### C BC #### [facility] [address] [place] [address] Dr. Natalya Arthur Hematocrit (Bld) [Volume fraction] 46.5 % Normal 42.0-54.0 [facility] Comment on above: Performed By: #### C BC #### [facility] [address] [place] [address] Dr. Natalya Arthur Hemoglobin (Bld) [Mass/Vol] 15.2 g/dL Normal 14.0-18.0 [facility] Comment on above: Performed By: #### C BC #### [facility] [address] [place] [address] Dr. Natalya Arthur IG # 0.04 10e3/ul Critically high 0.00-0.03 [facility] Comment on above: Performed By: #### C BC #### [facility] [address] [place] [address] Dr. Natalya Arthur IG % 0.3 % Normal 0.0-0.5 [facility] Comment on above: Performed By: #### C BC #### [facility] [address] [place] [address] Dr. Natalya Arthur LYMPH # 1.2 103/ul Normal 1.2-3.8 [facility] Comment on above: Performed By: #### C BC #### [facility] [address] [place] [address] Dr. Natalya Arthur Lymphocytes/100 WBC (Bld) 10.3 % Critically low 20.5-60.0 [facility] Comment on above: Performed By: #### C BC #### [facility] [address] [place] [address] Dr. Natalya Arthur MANUAL DIFF REQ NO Normal [facility] Comment on above: Performed By: #### C BC #### [facility] [address] [place] [address] Dr. Natalya Arthur MCH (RBC) [Entitic mass] 31.0 pg Normal 25.9-34.0 [facility] Comment on above: Performed By: #### C BC #### [facility] [address] [place] [address] Dr. Natalya Arthur MCHC (RBC) [Mass/Vol] 32.7 g/dL Normal 29.9-35.2 [facility] Comment on above: Performed By: #### C BC #### [facility] [address] [address] [address] Natalya Arthur MCV (RBC) [Entitic vol] 94.9 fL Critically high 80.0-94.0 [facility] Comment on above: Performed By: #### C BC #### [facility] [address] [address] [address] Natalya Arthur MONO # 1.1 103/ul Critically high 0.3-0.8 [facility] Comment on above: Performed By: #### C BC #### [facility] [address] [place] [address] Dr. Natalya Arthur Monocytes/100 WBC (Bld) 9.2 % Normal 1.7-12.0 [facility] Comment on above: Performed By: #### C BC #### [facility] [address] [place] [address] Dr. Natalya Arthur NEUT # 9.6 103/ul Critically high 1.4-6.5 [facility] Comment on above: Performed By: #### C BC #### [facility] [address] [place] [address] Dr. Natalya Arthur Neutrophils/100 WBC (Bld) 79.8 % Critically high 43.0-75.0 [facility] Comment on above: Performed By: #### C BC #### [facility] [address] [place] [address] Dr. Natalya Arthur Platelet mean volume (Bld) [Entitic vol] 10.3 fL Normal 9.5-13.5 [facility] Comment on above: Performed By: #### C BC #### [facility] [address] [place] [address] Dr. Natalya Arthur PLT 126 103/ul Critically low 150-450 [facility] Comment on above: Performed By: #### C BC #### [facility] [address] [place] [address] Dr. Natalya Arthur RBC 4.90 106/ul Normal 4.70-6.10 [facility] Comment on above: Performed By: #### C BC #### [facility] [address] [address] [address] Natalya Arthur WBC 12.1 103/ul Critically high 4.0-11.0 [facility] Comment on above: Performed By: #### C BC #### [facility] [address] [address] [address] Natalya Arthur ER URINE PROFILEon 1 Bilirubin Ql (U) Negative Normal NEGATIVE [facility] Comment on above: Performed By: #### Arthur MCLEAN UMICRO #### [facility] [address] [address] [address] Natalya Arthur Clarity (U) CLEAR Normal CLEAR [facility] Comment on above: Performed By: #### Arthur MCLEAN UMICRO #### [facility] [address] [place] [address] Dr. Natalya Arthur Color (U) YELLOW Normal YELLOW [facility] Comment on above: Performed By: #### Arthur MCLEAN UMICRO #### [facility] [address] [place] [address] Dr. Natalya Arthur ERUAHD A micrscopic examina tion will be performed if indicated. Normal [facility] Comment on above: Performed By: #### Arthur MCLEAN UMICRO #### [facility] [address] [place] [address] Dr. Natalya Arthur Glucose Ql (U) Negative Normal NEGATIVE [facility] Comment on above: Performed By: #### Arthur MCLEAN UMICRO #### [facility] [address] [place] [address] Dr. Natalya Arthur Hemoglobin Ql (U) LARGE Abnormal NEGATIVE [facility] Comment on above: Performed By: #### Arthur MCLEAN UMICRO #### [facility] [address] [place] [address] Dr. Natalya Arthur Ketones Ql (U) Negative Normal NEGATIVE [facility] Comment on above: Performed By: #### Arthur MCLEAN UMICRO #### [facility] [address] [place] [address] Dr. Natalya Arthur LEUKOCYTES Negative Normal NEGATIVE [facility] Comment on above: Performed By: #### MICK BESS #### [facility] [address] [place] [address] Dr. Natalya Arthur Nitrite Ql (U) Negative Normal NEGATIVE [facility] Comment on above: Performed By: #### MICK BESS #### [facility] [address] [place] [address] Dr. Natalya Arthur pH (U) 6.0 [pH] Normal 5-9 [facility] Comment on above: Performed By: #### MICK BESS #### [facility] [address] [place] [address] Dr. Natalya Arthur Protein (U) [Mass/Vol] 100 mg/dL Abnormal NEGAT ANTONIO/ TRACE [facility] Comment on above: Performed By: #### MICK BESS #### [facility] [address] [place] [address] Dr. Natalya Arthur SPEC GRAVITY >=1.030 Abnormal 1.005-<=1. 025 [facility] Comment on above: Performed By: #### MICK BESS #### [facility] [address] [place] [address] Dr. Natalya Arthur UR MICRO IND INDICATED Normal [facility] Comment on above: Performed By: #### MICK BESS #### [facility] [address] [place] [address] Dr. Natalya Arthur Urobilinogen Qn (U) 0.2 {Vonnie'U}/dL Normal 0.2 - 1. 0 [facility] Comment on above: Performed By: #### ROHAN BESSRO #### [facility] [address] [place] [address] Dr. Natalya Arthur LACTATE/LACTIC ACIDon 2020 Lactate [Moles/Vol] 1.7 mmol/L Normal 0.7-2.0 [facility] Comment on above: Performed By: #### C VDTB #### [facility] [address] [place] [address] Dr. Natalya Arthur LIPASEon 02-03-2021 Lipase [Catalytic activity/Vol] 143.0 U/L Normal 23.0-300.0 [facility] Comment on above: Performed By: #### C VDTBH #### [facility] [address] [place] [address] Dr. Natalya Arthur PROF 14(COMP METB)on 021 Albumin [Mass/Vol] 3.6 g/dL Normal 3.5-5.0 [facility] Comment on above: Performed By: #### C VDTBH #### [facility] [address] [place] [address] Dr. Natalya Arthur Albumin/Globulin [Mass ratio] 0.8 {ratio} Normal [facility] Comment on above: Performed By: #### C VDTBH #### [facility] [address] [place] [address] Dr. Natalya Arthur ALP [Catalytic activity/Vol] 108 U/L Normal 38-126 [facility] Comment on above: Performed By: #### C VDTBH #### [facility] [address] [place] [address] Dr. Natalya Arthur ALT [Catalytic activity/Vol] 65 U/L Normal 21-72 [facility] Comment on above: Performed By: #### C VDTBH #### [facility] [address] [place] [address] Dr. Natalya Arthur Anion gap [Moles/Vol] 13.9 mmol/L Normal [facility] Comment on above: Performed By: #### C VDTBH #### [facility] [address] [place] [address] Dr. Natalya Arthur AST [Catalytic activity/Vol] 42 U/L Normal 17-59 [facility] Comment on above: Performed By: #### C VDTBH #### [facility] [address] [place] [address] Dr. Natalya Arthur Bilirubin [Mass/Vol] 1.0 mg/dL Normal 0.2-1.3 [facility] Comment on above: Performed By: #### C VDTBH #### [facility] [address] [place] [address] Dr. Natalya Arthur Calcium [Mass/Vol] 9.7 mg/dL Normal 8.4-10.2 [facility] Comment on above: Performed By: #### C VDTBH #### [facility] [address] [place] [address] Dr. Natalya Arthur Chloride [Moles/Vol] 100 mmol/L Normal 98-107 [facility] Comment on above: Performed By: #### C VDTBH #### [facility] [address] [place] [address] Dr. Natalya Arthur CO2 [Moles/Vol] 28.2 mmol/L Normal 22.0-30.0 [facility] Comment on above: Performed By: #### C VDTBH #### [facility] [address] [place] [address] Dr. Natalya Arthur Creatinine [Mass/Vol] 1.18 mg/dL Normal 0.66-1.25 [facility] Comment on above: Performed By: #### C VDTBH #### [facility] [address] [place] [address] Dr. Natalya Arthur EGFR-AF MONGOLIAN >60 Normal >=60 [facility] Comment on above: Performed By: #### C VDTBH #### [facility] [address] [place] [address] Dr. Natalya Arthur EGFR-NON AF MONGOLIAN =60 Normal >=60 [facility] Comment on above: Performed By: #### C VDTBH #### [facility] [address] [place] [address] Dr. Natalya Arthur Globulin (S) [Mass/Vol] 4.5 g/dL Normal [facility] Comment on above: Performed By: #### C VDTBH #### [facility] [address] [place] [address] Dr. Natalya Arthur Glucose [Mass/Vol] 121 mg/dL Critically high 74-106 [facility] Comment on above: Performed By: #### C VDTBH #### [facility] [address] [address] [address] Natalya Arthur Potassium [Moles/Vol] 4.1 mmol/L Normal 3.4-5.0 [facility] Comment on above: Performed By: #### C VDTBH #### [facility] [address] [address] [address] Natalya Arthur Protein [Mass/Vol] 8.1 g/dL Normal 6.1-8.2 [facility] Comment on above: Performed By: #### C VDTBH #### [facility] [address] [address] [address] Natalya Arthur Sodium [Moles/Vol] 138 mmol/L Normal 137-145 [facility] Comment on above: Performed By: #### C VDTBH #### [facility] [address] [address] [address] Natalya Arthur Urea nitrogen [Mass/Vol] 17.0 mg/dL Normal 9.0-20.0 [facility] Comment on above: Performed By: #### C VDTBH #### [facility] [address] [address] [address] Natalya Arthur Urea nitrogen/Creatinine [Mass ratio] 14.4 mg/mg Normal [facility] Comment on above: Performed By: #### C VDTBH #### [facility] [address] [address] [address] Natalya Arthur TROPONIN, HIGH SENSITIVITYon 02-03-2021 HSTROP 49.0 pg/mL Critically high 4.0-42.2 [facility] Comment on above: Result Comment: CUT- OFF POINTS HAVE BEEN ESTABLISHED BASED ON THE FOURTH UNIVERSAL DEFINITIONS OF MYOCARDIAL INFARCTION. THE UPPER REFERENCE LIMIT (URL) OF TROPONIN, DEFINED THE 99TH PERCENTILE OF cTnI DISTRIBUTION IN A REFERENCE POPULATION, HAS BEEN CONFIRMED THE DECISION THRESHOLD FOR AR DIAGNOSIS. Performed By: #### C VDTBH #### [facility] [address] [address] [address] Natalya Arthur URINE MICROSCOPIC ONLYon AMORPHOUS CRYSTALS FEW Normal [facility] Comment on above: Performed By: #### E RUR, UMICRO #### [facility] [address] [place] [address] Dr. Natalya Arthur BACTERIA TRACE Abnormal NONE SEEN [facility] Comment on above: Performed By: #### E RUR, UMICRO #### [facility] [address] [place] [address] Dr. Natalya Arthur Bacteria identified Cx Nom (U) NOT INDICATED Normal [facility] Comment on above: Performed By: #### E RUR, UMICRO #### [facility] [address] [place] [address] Dr. Natalya Arthur CAST NONE SEEN Normal NONE SEEN [facility] Comment on above: Performed By: #### E RUR, UMICRO #### [facility] [address] [place] [address] Dr. Natalya Arthur Crystals LM Nom (Urine sed) SEEN Abnormal NONE SEEN [facility] Comment on above: Performed By: #### E VINAY, UMICRO #### [facility] [address] [place] [address] Dr. Natalya Arthur Epithelial cells LM Ql (Urine sed) FEW Abnormal NONE SEEN /RARE [facility] Comment on above: Performed By: #### Arthur MCLEAN, UMICRO #### [facility] [address] [place] [address] Dr. Natalya Arthur MUCOUS LARGE Abnormal NONE SEEN [facility] Comment on above: Performed By: #### Arthur MCLEAN UMICRO #### [facility] [address] [place] [address] Dr. Natalya Arthur RBC 10-20 Abnormal 0-2 [facility] Comment on above: Performed By: #### Arthur MCLEAN UMICRO #### [facility] [address] [place] [address] Dr. Natalya Arthur WBC 0-2 Abnormal NONE SEEN [facility] Comment on above: Performed By: #### E RUMaribel, UMICRO #### [facility] [address] [place] [address] Dr. Natalya Arthur US SINGLE QUAD RT UPPERon 11 -12-2021 US SINGLE QUAD RT UPPER EXAMINATION: US [...] STEPHEN ARBOLEDA Date: 2021-02-03 19:08 Normal [facility] XR CHEST 1 Von 02-03-2021 XR CHEST [...] by: STEPHEN ARBOLEDA Date: 2021-02-03 19:22 Normal [facility] Cardiovascular Lab Reporton 10-31-2018 Cardiovascular Lab Report [facility] Patient [facility]: [facility] MR #: [id number] Department of Physician: Artis Horner M.D. Division of Service Date: 10/30/2018 Cardiology Birthdate: 1945 Adult Cardiovascular Room #: [facility] [address] [place], [place] [address] Cardiovascular Laboratory Report CLINICAL PRESENTATION: Pankaj Payne is a 73-year-old male with past medical history significant for CAD, status post prior PCI of the left circumflex coronary artery in 02/2018; hypertension; hyperlipidemia; hypothyroidism. The patient was evaluated by Dr. Tenorio in the [facility], [place] office. He reports worsening fatigue that was [...] noted. 4. Outpatient followup with Dr. Tenorio, [facility]. PROCEDURES: Coronary angiogram, left heart catheterization, [...] infiltrated over the right radial artery. A 6-Moroccan Terumo Glidesheath slender was placed in the right radial artery. The radial anti-vasospasm cocktail of verapamil 2.5 mg and nitroglycerin 200 mcg was administered through the sheath. All catheter exchanges were made over the Magic Torque guidewire. Initially, a 5-Moroccan [place] catheter was used to engage the coronary arteries. The [place] catheter engaged the right coronary artery, but did not engage the left main coronary artery well. I then exchanged over wire to a 6-Moroccan JL3.5 catheter which engaged the left main coronary artery. Coronary angiogram was performed in multiple orthogonal views using hand injection of contrast. At this point, it was apparent that the right PDA had intermediate stenosis, I elected to proceed with IFR evaluation. The [place] Verrata wire was zeroed outside of the body and then normalized at the catheter guide tip. Heparin anticoagulation was used for this procedure and the ACT was maintained greater than 200 seconds. The [place] Verrata wire was then manipulated to the [...] Schafer M.D. Date Trans: 10/31/2018 05:07 Rishabh/katelin [id number] cc: Frantz Conley M.D. [address] [address] Frantz Tenorio M.D. [address] [id number] Normal [facility] Operative Reporton 12-10-201 8 Operative Report Date [...] day for postoperative care.Hardeep Fraga D.O.glsDictated: 02/25/2018 #[id number]: 02/25/2018 #[id number]: Hardeep Fraga D.O. [facility] Comment on above: Result Comment: Elec tronically Signed By: Hardeep Fraga DO\.br\Date and Time Signed: 03/03/18 12:57 EST Cardiovascular Lab Reporton 03-01-2018 Cardiovascular Lab Report [facility] Patient [facility]: [facility] MR #: [id number] Department of Physician: Artis Pinedo M.D. Division of Service Date: 02/28/2018 Cardiology Birthdate: 1945 Adult Cardiovascular Room #: [id number] [address] Cardiovascular Laboratory Report FINAL IMPRESSION: 1. Successful [...] fashion. Using a modified Seldinger technique, a 5-Moroccan micropuncture was placed in right internal jugular vein. This was upsized to a regular 6-Moroccan sheath. Then, a 6-Moroccan Trinh was used for right heart catheterization. The right heart catheterization was performed. Access of the right radial artery under ultrasound guidance and in the right ulnar artery under ultrasound guidance a 6-Moroccan sheath was placed and then used a 6-Moroccan JL3.5 and JR5 catheter for coronary angiography. After baseline angiography was performed, the case was discussed by his referring american board certified orthotist, Dr. Tenorio, as well as with the patient's family. Also given multiple lesions in right , circumflex coronary artery and a distal LAD lesion, we also discussed CABG as an option. 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 We decided to treat circumflex. 6-Moroccan XB 3.0 guide was used to engage the left main coronary ostium. A 0.014 [place] wire was passed across the proximal circumflex into the 1st obtuse marginal branch. Predilatation was performed using a 2.5 x 15 balloon. Then, we deployed a 2.5 x 16 Synergy stent. This was post-dilated with a 2.75 x 15 noncompliant at 24 atmospheres. Final angiography showed good stent result in the proximal circumflex into the 1st obtuse marginal branch. The catawba circumflex stayed open. There were no complications. [...] Barahona M.D. Date Trans: 03/01/2018 03:16 Rishabh/katelin [id number] cc: JYOTI Villalobos [address] [place] [address] Frantz Conley M.D. [address] [address] Frantz Tenorio M.D. [address] [address] Normal [facility] History and Physicalon 02-28 History and Physical MR#: [id number] [facility] Pt. Name: Pankaj Payne Admitted: 02/28/2018 Date [...] Lopez M.D. Date Trans: 02/28/2018 04:44 P/katelin [id number] Normal [facility] Coding Summary.on 02-26-2018 Coding Summary. CODING DATE: 018 FINAL [facility] DSC STATUS: Home (Routine DC) PAYOR: Medicare APC DESCRIPTION 5491 Level 1 Intraocular Procedures ADMIT DX: REASON FOR VISIT DX: H25.11 Age-related nuclear cataract, right eye FINAL DX: PRINCIPAL: H25.11 Age-related nuclear cataract, right eye SECONDARY: H25.041 Posterior subcapsular polar age-related cataract, right eye E03.9 Hypothyroidism, unspecified PYMT PROC APC STAT DESCRIPTION DOCTOR NAME DATE 38626 5491 J1 Extracapsular cataract Hardeep Fraga DO [...] Caldwell Date Saved: 02/26/2018 04:03 pm Normal [facility] Main OR Intraoperative Recor don 02-26-2018 Main OR Intraoperative Record IntraOp Document Type FT Summary Primary Physician: Hardeep Fraga DO Finalized Date/Time: 02/26/18 14:08:09 Pt. Name: PANKAJ PAYNE/Sex: 1945 Male Med Rec #: [id number] Physician: Hardeep Fraga DO Financial #: [id number] Pt. Type: A Room/Bed: [address] [address] Admit/Disch: 02/25/18 08:23:00 - 02/25/18 12:00:00 Institution: [...] Entry 2 Entry 3 Case Attendee Hardeep rFaga DO RN, Arnold Rodas BSN, RN, Sussy Role Performed Surgeon - Primary Director [employer] - Primary Director [employer] - Primary Time In 02/25/18 11:00:00 02/25/18 [...] Moreno RN, Weisenburger BSN, RN, Smith Hi LEAVE COORDINATOR, Nessa Bhardwaj CST, Jeannine López Time Out [...] tissue Entry 1 Skin Integrity Warm, Dry, [place], Unable Outcomes Met? Yes to Visualize Last [...] By Arnold Moreno RN, Outcomes Met? Yes lCark MARAVILLA, MARISOL, Sussy Last Modified By: Arnold Moreno RN [...] Instruments Instruments Status Correct Correct Time By Zoila Mtz CST, CST, Amy E Outcomes Met? Yes Yes Last Modified [...] RN Patient Status Stable Skin. Condition Warm, [place], Dry Airway Maintenance Oxygen in Use? 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 Yes Last Modified By: Arnold Moreno RN 02/25/18 11:08:01 Post-Care Text: The patient is free from signs and symptoms of injury caused by extraneous objects Case Comments Finalized By: Elayne Agosto CST Document Signatures Signed By: Arnold Moreno RN 02/25/18 11:18 Elayne Agosto CST 02/26/18 14:08 Normal [facility] History and Physicalon 02-25 History and Physical [...] in the near future.Hardeep Fraga D.O.aekDictated: 02/24/2018 #[id number] 02/25/2018 #[id number]: Hardeep Fraga D.O. [facility] Comment on above: Result Comment: Elec tronically Signed By: Hardeep Fraga DO\.br\Date and Time Signed: 02/25/18 10:24 EST Inpatient Patient Summaryon 02-25-2018 [facility] Instructions[facility] INFORMATION Name: PANKAJ PAYNE PHYSICIANS Admitting Physician: Hardeep Fraga DOAttending Physician: Hardeep Fraga DO PCP: FRANTZ CONLEY MD BDischarge Diagnosis: Cataract Comment: PATIENT EDUCATION INFORMATIONInstructions:M edication Leaflets:Follow up:With: Address: When: Hardeep Fraga [facility] [address] [facility] [address] [facility], [place] [address] Business (1) Within 1 to 2 days MEDICATION LISTComment: [facility] Main OR PACU II Recordon Main OR PACU II Record PACU Phase II Doc ument Type FT Summary Primary Physician: Hardeep Fraga DO Finalized Date/Time: 02/25/18 12:33:41 Pt. Name: PAYNEPANKAJ D.O.B./Sex: 1945 Male Med Rec #: [id number] Physician: Hardeep Fraga DO Financial #: [id number] Pt. Type: A Room/Bed: Admit/Disch: 02/25/18 08:23:55 - Institution: Case Times [...] By: Lissa Pope RN 02/25/18 12:33 Normal [facility] Main OR Preoperative Recordo n 02-25-2018 Main OR Preoperative Record PreOp Document Type FT Summary Primary Physician: Hardeep Fraga DO Finalized Date/Time: 02/25/18 11:05:22 Pt. Name: PANKAJ PAYNE/Sex: 1945 Male Med Rec #: [id number] Physician: Hardeep Fraga DO Financial #: [id number] Pt. Type: A Room/Bed: [address] [address] Admit/Disch: 02/25/18 08:23:55 - Institution: Case Times [...] Signed By: Arnold Moreno RN 02/25/18 11:05 [facility] Main OR Preoperative Record Holding Area Document Type FT Summary Primary Physician: Hardeep Fraga DO Finalized Date/Time: 02/25/18 08:46:23 Pt. Name: PANKAJ PAYNE/Sex: 1945 Male Med Rec #: [id number] Physician: Hardeep Fraga DO Financial #: [id number] Pt. Type: A Room/Bed: [address] [address] Admit/Disch: 02/25/18 08:23:55 - Institution: Case Times [...] By: Lissa Pope RN 02/25/18 08:46 Normal [facility] Patient Education - Texton 1 04-28-2017 Patient Education - Text [facility] Progress Note-Physicianon Protein mass conc Patient: [...] Estimated Blood Loss: 0 ml. Complications: None. [facility] Comment on above: Result Comment: Elec [...] day for postoperative care.Hardeep Fraga D.O.lkrDictated: 02/11/2018 #[id number]: 02/12/2018 #[id number]: Hardeep Fraga D.O. [facility] Comment on above: Result Comment: Elec tronically Signed By: Hardeep Fraga DO\.br\Date and Time Signed: 02/17/18 08:38 EST Coding Summary.on 02-12-2018 Coding Summary. CODING DATE: 018 FINAL [facility] DSC STATUS: Home (Routine DC) PAYOR: Medicare APC DESCRIPTION 5491 Level 1 Intraocular Procedures ADMIT DX: REASON FOR VISIT DX: H25.13 Age-related nuclear cataract, bilateral FINAL DX: PRINCIPAL: H25.13 Age-related nuclear cataract, bilateral SECONDARY: H25.043 Posterior subcapsular polar age-related cataract, bilateral E03.9 Hypothyroidism, unspecified PYMT PROC APC STAT DESCRIPTION DOCTOR NAME DATE 88871 5491 J1 Extracapsular cataract Yuridiajudith JEAN Hardeep [...] Abbasi Revised Date Saved: 02/12/2018 11:05 am [facility] Main OR Preoperative Recordo n 02-12-2018 Main OR Preoperative Record Holding Area Document Type FT Summary Primary Physician: Hardeep Fraga DO Finalized Date/Time: 02/12/18 07:26:59 Pt. Name: PANKAJ PAYNE/Sex: 1945 Male Med Rec #: [id number] Physician: Hardeep Fraga DO Financial #: [id number] Pt. Type: A Room/Bed: [address] [address] Admit/Disch: 02/11/18 08:31:00 - 02/11/18 12:00:00 Institution: Case Times Holding FT Pre-Care Text: Verifies consent for planned procedure, identifies individual values and wishes concerning care, includes family members in perioperative teaching Secures patient's records' belongings, and valuables, maintains patient's dignity and privacy, and maintains patient confidentiality Entry 1 In Holding 02/11/18 08:40:00 Outcomes Met? Yes Last Modified By: Be DAMON, BSN, Monika López 02/11/18 08:48:24 Post-Care Text: [...] for reason Last Modified By: Be DAMON, AIRAMN, Monika López 02/11/18 08:50:03 Finalized By: HEMANT Macdonald RN, Andrea Document Signatures Signed By: HEMANT Macdonald RN, Andrea 02/12/18 07:26 Normal [facility] History and Physicalon 02-11 History and Physical [...] in the near future.Hardeep Fraga D.O.aekDictated: 02/10/2018 #[id number] 02/11/2018 #[id number]: Hardeep Fraga D.O. [facility] Comment on above: Result Comment: Elec tronically Signed By: Hardeep Fraga DO\.br\Date and Time Signed: 02/11/18 08:10 EST Inpatient Patient Summaryon 02-11-2018 Inpatient [facility] InstructionsPERSON INFORMATION Name: PANKAJ PAYNE PHYSICIANS Admitting Physician: Hardeep Fraga DOAttending Physician: Hardeep Fraga DO PCP: FRANTZ CONLEY MD BDischarge Diagnosis: Cataract Comment: PATIENT EDUCATION INFORMATIONInstructions:Robert LMAALER- After Surgery Eye (Custom)Medication Leaflets:Follow up:With: Address: When: Hardeep Fraga [facility] [address] [facility] [place] [address] Business (1) Within 1 to 2 days MEDICATION LISTComment: [facility] Main OR Intraoperative Recor don 02-11-2018 Main OR Intraoperative Record IntraOp Document Type FT Summary Primary Physician: Hardeep Fraga DO Finalized Date/Time: 02/11/18 13:09:49 Pt. Name: PANKAJ PAYNE Rishabh Landaverde/Sex: 1945 Male Med Rec #: [id number] Physician: Hardeep Fraga DO Financial #: [id number] Pt. Type: A Room/Bed: [address] [address] Admit/Disch: 02/11/18 08:31:00 - 02/11/18 12:00:00 Institution: [...] Arnold Morton Role Performed Surgeon - Primary Director [employer] - Primary Director [employer] - Primary Time In 02/11/18 11:04:00 02/11/18 [...] 5 Case Attendee Mayo ARZOLA, Marisela Marcano CST/Nusrat ZAMORA Role Performed Scrub - Primary [...] DO, Given Participants Rosanna Messina RN, Tiffanie RN, Krys Mar LEAVE COORDINATOR/SA, Mayo Silverio CST, Marisela Rodriguez Time Out [...] safely administered during the perioperative period For [facility] please see scanned medication reconcilliation form for medications used at the field during the procedure. 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 Yes Last Modified By: Rosanna Messina RN 02/11/18 11:19:54 Post-Care Text: The patient is free from signs and symptoms of injury caused by extraneous objects Case Comments Finalized By: Elayne Agosto CST Document Signatures Signed By: Rosanna Messina RN 02/11/18 11:24 Elayne Agosto CST 02/11/18 13:09 Normal [facility] Main OR PACU II Recordon Main OR PACU II Record PACU Phase II Doc ument Type FT Summary Primary Physician: Hardeep Fraga DO Finalized Date/Time: 02/11/18 12:09:46 Pt. Name: PANKAJ PAYNE/Sex: 1945 Male Med Rec #: [id number] Physician: Hardeep Fraga DO Financial #: [id number] Pt. Type: A Room/Bed: [facility] Admit/Disch: 02/11/18 08:31:00 - Institution: Case Times [...] By: Lisa Rubi RN 02/11/18 12:09 Normal [facility] Patient Education - Texton 1 04-13-2017 Patient Education - Text [facility] Progress Note-Physicianon Protein mass conc Patient: [...] Blood Loss: 0 ml. Complications: None. Normal [facility] Comment on above: Result Comment: Elec tronically Signed By: Hardeep Fraga DO\.br\Date and Time Signed: 02/11/18 11:23 EST Vital Signs Date Time Vital Sign Value Performing Clinician Facility 11-11-2024 13:33-0400 Body height 157.48 cm Frantz Conley II Work Phone: [facility] 11-11-2024 13:33-0400 Body mass index (BMI) [Ratio] 32.3 kg/m2 Frantz Conley II Work Phone: [facility] 11-11-2024 13:33-0400 Body weight 80.28 kg Frantz Conley II Work Phone: [facility] 11-11-2024 13:33-0400 Diastolic blood pressure 79 mm[Hg] Frantz Conley II Work Phone: [facility] 11-11-2024 13:33-0400 Heart rate 61 /min Frantz Conley II Work Phone: [facility] 11-11-2024 13:33-0400 Systolic blood pressure 120 mm[Hg] Frantz Conley II Work Phone: [facility] 10-20-2024 14:31-0400 Body height 166.4 cm Rosanna Hemmer PA Work Phone: [facility] 10-20-2024 14:31-0400 Body mass index (BMI) [Ratio] 29.24 kg/m2 Rosanna Hemmer PA Work Phone: [facility] 10-20-2024 14:31-0400 Body weight 80.92 kg Rosanna Hemmer PA Work Phone: [facility] 10-20-2024 14:31-0400 Diastolic blood pressure 84 mm[Hg] Rosanna Hemmer PA Work Phone: [facility] 10-20-2024 14:31-0400 Heart rate 69 /min Rosanna Hemmer PA Work Phone: [facility] 10-20-2024 14:31-0400 Respiratory rate 16 /min Rosanna Hemmer PA Work Phone: [facility] 10-20-2024 14:31-0400 SaO2% (BldA) [Mass fraction] 96 % Rosanna Hemmer PA Work Phone: [facility] 10-20-2024 14:31-0400 Systolic blood pressure 132 mm[Hg] Rosanna Hemmer PA Work Phone: [facility] 10-05-2024 11:04-0400 Body height 166.4 cm Frantz Conley MD Work Phone: [facility] 10-05-2024 11:04-0400 Body mass index (BMI) [Ratio] 29.66 kg/m2 Frantz Conley MD Work Phone: [facility] 10-05-2024 11:04-0400 Body weight 82.1 kg Frantz Conley MD Work Phone: [facility] 10-05-2024 11:04-0400 Diastolic blood pressure 62 mm[Hg] Frantz Conley MD Work Phone: [facility] 10-05-2024 11:04-0400 Heart rate 48 /min Frantz Conley MD Work Phone: [facility] 10-05-2024 11:04-0400 SaO2% (BldA) [Mass fraction] 97 % Frantz Conley MD Work Phone: [facility] 10-05-2024 11:04-0400 Systolic blood pressure 110 mm[Hg] Frantz Conley MD Work Phone: [facility] 09-08-2024 14:56-0400 Body height 165.1 cm Crescencio Marin DO Work Phone: [facility] 09-08-2024 14:56-0400 Body mass index (BMI) [Ratio] 30.29 kg/m2 Crescencio Marin DO Work Phone: [facility] 09-08-2024 14:56-0400 Body weight 82.56 kg Crescencio Marin DO Work Phone: [facility] 09-08-2024 14:56-0400 Diastolic blood pressure 68 mm[Hg] Crescencio Marin DO Work Phone: [facility] 09-08-2024 14:56-0400 Heart rate 58 /min Crescencio Marin DO Work Phone: [facility] 09-08-2024 14:56-0400 Systolic blood pressure 122 mm[Hg] Crescencio Marin DO Work Phone: [facility] 04-30-2024 13:05-0500 Body height 157.48 cm Frantz Conley II Work Phone: [facility] 04-30-2024 13:05-0500 Body mass index (BMI) [Ratio] 32 kg/m2 Frantz Conley II Work Phone: [facility] 04-30-2024 13:05-0500 Body weight 79.37 kg Frantz Conley II Work Phone: [facility] 03-12-2024 10:59-0500 Body height 166.4 cm Frantz Conley MD Work Phone: [facility] 03-12-2024 10:59-0500 Body mass index (BMI) [Ratio] 29.17 kg/m2 Frantz Conley MD Work Phone: [facility] 03-12-2024 10:59-0500 Body weight 80.74 kg Frantz Conley MD Work Phone: [facility] 03-12-2024 10:59-0500 Diastolic blood pressure 66 mm[Hg] Frantz Conley MD Work Phone: [facility] 03-12-2024 10:59-0500 Heart rate 56 /min Frantz Conley MD Work Phone: [facility] 03-12-2024 10:59-0500 SaO2% (BldA) [Mass fraction] 98 % Frantz Conley MD Work Phone: [facility] 03-12-2024 10:59-0500 Systolic blood pressure 122 mm[Hg] Frantz Conley MD Work Phone: [facility] 01-01-2024 11:24-0400 Heart rate 52 /min Crescencio Marin DO Work Phone: [facility] 01-01-2024 11:16-0400 Body height 165.1 cm Crescencio Marin DO Work Phone: [facility] 01-01-2024 11:16-0400 Body mass index (BMI) [Ratio] 29.09 kg/m2 Crescencio Marin DO Work Phone: [facility] 01-01-2024 11:16-0400 Body weight 79.29 kg Crescencio Marin DO Work Phone: [facility] 01-01-2024 11:16-0400 Diastolic blood pressure 60 mm[Hg] Crescencio Marin DO Work Phone: [facility] 01-01-2024 11:16-0400 Systolic blood pressure 118 mm[Hg] Crescencio Marin DO Work Phone: [facility] 10-23-2023 11:17-0400 Diastolic blood pressure 84 mm[Hg] LIBBY Conley Work Phone: [facility] 10-23-2023 11:17-0400 Heart rate 70 /min II Frantz Conley Work Phone: [facility] 10-23-2023 11:17-0400 Respiratory rate 18 /min LIBBY Conley Work Phone: [facility] 10-23-2023 11:17-0400 SaO2% (BldA) [Mass fraction] 98 % II Frantz Conley Work Phone: [facility] 10-23-2023 11:17-0400 Systolic blood pressure 146 mm[Hg] II Frantz Conley Work Phone: [facility] 10-23-2023 09:10-0400 Body height 157.48 cm II Frantz Conley Work Phone: [facility] 10-23-2023 09:10-0400 Body weight 78.01 kg II Frantz Conley Work Phone: [facility] 09-17-2023 11:02-0400 Body height 165.1 cm II Frantz Conley Work Phone: [facility] 09-17-2023 11:02-0400 Body mass index (BMI) [Ratio] 28.8 kg/m2 II Frantz Conley Work Phone: [facility] 09-17-2023 11:02-0400 Body weight 78.47 kg II Frantz Conley Work Phone: [facility] 09-17-2023 11:02-0400 Diastolic blood pressure 67 mm[Hg] II Frantz Conley Work Phone: [facility] 09-17-2023 11:02-0400 Heart rate 53 /min II Frantz Conley Work Phone: [facility] 09-17-2023 11:02-0400 Systolic blood pressure 114 mm[Hg] II Frantz Conley Work Phone: [facility] 06-20-2023 10:01-0400 Diastolic blood pressure 68 mm[Hg] Crescencio Marin DO Work Phone: [facility] 06-20-2023 10:01-0400 Heart rate 63 /min Crescencio Marin DO Work Phone: [facility] 06-20-2023 10:01-0400 Systolic blood pressure 126 mm[Hg] Crescencio Marin DO Work Phone: [facility] 06-20-2023 10:00-0400 Body height 165.1 cm Crescencio Marin DO Work Phone: [facility] 06-20-2023 10:00-0400 Body mass index (BMI) [Ratio] 30.29 kg/m2 Crescencio Tomas JEAN Work Phone: [facility] 06-20-2023 10:00-0400 Body weight 82.56 kg Crescencio Liaobeena JEAN Work Phone: [facility] 05-08-2023 10:30-0500 Body height 166.4 cm Frantz Conley MD Work Phone: [facility] 05-08-2023 10:30-0500 Body mass index (BMI) [Ratio] 29.66 kg/m2 Frantz Conley MD Work Phone: [facility] 05-08-2023 10:30-0500 Body weight 82.1 kg Frantz Conley MD Work Phone: [facility] 05-08-2023 10:30-0500 Diastolic blood pressure 66 mm[Hg] Frantz Conley MD Work Phone: [facility] 05-08-2023 10:30-0500 Heart rate 52 /min Frantz Conley MD Work Phone: [facility] 05-08-2023 10:30-0500 SaO2% (BldA) [Mass fraction] 99 % Frantz Conley MD Work Phone: [facility] 05-08-2023 10:30-0500 Systolic blood pressure 120 mm[Hg] Frantz Conley MD Work Phone: [facility] 09-28-2022 10:27-0400 Body temperature 97.8 [degF] II Frantz Conley Work Phone: [facility] 09-28-2022 10:27-0400 Body weight 81.19 kg II Frantz Conley Work Phone: [facility] 09-28-2022 10:27-0400 Diastolic blood pressure 61 mm[Hg] II Frantz Conley Work Phone: [facility] 09-28-2022 10:27-0400 Heart rate 39 /min II Frantz Conley Work Phone: [facility] 09-28-2022 10:27-0400 Respiratory rate 16 /min II Frantz Conley Work Phone: [facility] 09-28-2022 10:27-0400 SaO2% (BldA) [Mass fraction] 97 % II Frantz Conley Work Phone: [facility] 09-28-2022 10:27-0400 Systolic blood pressure 143 mm[Hg] II Frantz Conley Work Phone: [facility] 09-18-2022 10:00-0400 Body height 165.1 cm Mick Branch Other [facility] [employer] Other 09-18-2022 10:00-0400 Body mass index (BMI) [Ratio] 29.12 kg/m2 Mick Branch Other [employer] Other 09-18-2022 10:00-0400 Body weight 79.38 kg Mick Branch Other [employer] Other 09-18-2022 10:00-0400 Diastolic blood pressure 76 mm[Hg] Mick Branch Other [employer] Other 09-18-2022 10:00-0400 Systolic blood pressure 113 mm[Hg] Mick Branch Other [employer] Other 08-08-2022 13:49-0400 Body height 165.1 cm II Frantz Conley Work Phone: [facility] 09-19-2021 13:10-0400 Diastolic blood pressure 64 mm[Hg] II Frantz Conley Work Phone: [facility] 09-19-2021 13:10-0400 Heart rate 68 /min II Frantz Conley Work Phone: [facility] 09-19-2021 13:10-0400 Respiratory rate 16 /min II Frantz Conley Work Phone: [facility] 09-19-2021 13:10-0400 SaO2% (BldA) [Mass fraction] 96 % II Frantz Conley Work Phone: [facility] 09-19-2021 13:10-0400 Systolic blood pressure 119 mm[Hg] II Frantz Conley Work Phone: [facility] 09-19-2021 11:54-0400 Body height 165.1 cm II Frantz Conley Work Phone: [facility] 09-19-2021 11:54-0400 Body mass index (BMI) [Ratio] 29.9 kg/m2 II Frantz Conley Work Phone: [facility] 09-19-2021 11:54-0400 Body temperature 98.3 [degF] II Frantz Conley Work Phone: [facility] 09-19-2021 11:54-0400 Body weight 81.64 kg II Frantz Conley Work Phone: [facility] 09-13-2021 15:15-0400 Body height 165.1 cm Mick Branch Other [facility] [employer] Other 09-13-2021 15:15-0400 Body mass index (BMI) [Ratio] 29.95 kg/m2 Mick Branch Other [employer] Other 09-13-2021 15:15-0400 Body weight 81.65 kg Mick Branch Other [employer] Other 08-17-2021 12:00-0400 Body temperature 98.01 [degF] Leonard Johnson MD [facility] 08-17-2021 11:15-0400 Heart rate 69 /min Leonard Johnson MD [facility] 08-17-2021 11:15-0400 Respiratory rate 19 /min Leonard Johnson MD [facility] 08-17-2021 11:15-0400 SaO2% (BldA) [Mass fraction] 98 % Leonard Johnson MD [facility] 08-17-2021 10:00-0400 Diastolic blood pressure 80 mm[Hg] Leonard Johnson MD [facility] 08-17-2021 10:00-0400 Systolic blood pressure 139 mm[Hg] Leonard Johnson MD [facility] 08-16-2021 21:48-0400 Body height 165.1 cm [facility] 08-16-2021 21:48-0400 Body mass index (BMI) [Ratio] 30.05 kg/m2 Leonard Johnson MD [facility] 08-16-2021 21:48-0400 Body weight 81.92 kg Leonard Johnson MD [facility] 07-11-2021 11:45-0400 Body height 165.1 cm Mick Branch Other [employer] Other 07-11-2021 11:45-0400 Body mass index (BMI) [Ratio] 30.45 kg/m2 Mick Branch Other [employer] Other 07-11-2021 11:45-0400 Body weight 83.01 kg Mick Branch Other [employer] Other 07-11-2021 11:45-0400 Diastolic blood pressure 77 mm[Hg] Mick Branhc Other [employer] Other 07-11-2021 11:45-0400 Systolic blood pressure 126 mm[Hg] Mick Branch Other [employer] Other Encounters Encounter Date Encounter Type Care Provider Facility Start: 11-11-2024 End: 11-11-2024 ambulatory Frantz Conley II Work Phone: [facility] Work Phone: Start: 11-11-2024 End: 11-11-2024 Patient encounter procedure Mick Branch MD -[facility] Work Phone: Start: 11-02-2024 End: 11-02-2024 Patient encounter procedure Mick Branch MD -[facility] Work Phone: Start: 11-02-2024 End: 11-02-2024 ambulatory Frantz Conley II Work Phone: [facility] Work Phone: Start: 10-20-2024 End: 10-20-2024 Patient encounter procedure Rosanna MIRZA Work Phone: [facility] Comment on above: Medicare annual well ness visit, subsequent (Primary Dx); ACP (advance care planning); Chronic insomnia; Other chronic pain; Benign essential HTN ; Benign hypertensive heart and CKD, 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), w CHF (HCC); Coronary artery disease involving catawba coronary artery of catawba heart without angina pectoris ; Dilatation of aorta; History of coronary artery stent placement; PVCs (premature ventricular contractions); Sinus arrhythmia; Sinus bradycardia; Abnormal LFTs; Diverticulosis of colon; Gastroesophageal reflux disease without esophagitis; 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); Cervical spondylolysis; Muscle cramps; Acquired hypothyroidism ; BMI 29.0-29.9,adult; Vitamin D deficiency; Iron deficiency anemia, unspecified iron deficiency anemia type; Pancytopenia, acquired ([facility]-HCC); Former cigarette smoker; Mixed hyperlipidemia ; Situational anxiety; Unsteadiness on feet; Esophageal varices without bleeding (HCC); Other secondary pulmonary hypertension (HCC); Grade II diastolic dysfunction Start: 10-20-2024 End: 10-20-2024 ambulatory ROSANNA DALY Not Available Start: 10-20-2024 End: 10-20-2024 Bamboo flowsheet Rosanna MIRZA Work Phone: [facility] Start: 10-20-2024 End: 10-20-2024 Bamboo flowsheet Rosanna MIRZA Work Phone: [facility] Start: 10-05-2024 End: 10-05-2024 Office outpatient visit 25 minutes Frantz Conley MD Work Phone: [facility] Comment on above: Sinus bradycardia (P rimary Dx); PVCs (premature ventricular contractions); Coronary artery disease involving catawba coronary artery of catawba heart without angina pectoris ; 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) Start: 10-05-2024 End: 10-05-2024 ambulatory FRANTZ CONLEY Not Available Start: 10-01-2024 End: 10-01-2024 Clinisync Result Encounter Generic External Data Provider [facility] External Department Unsolicited Start: 10-01-2024 End: 10-01-2024 Clinisync Result Encounter Generic External Data Provider [facility] External Department Unsolicited Start: 09-23-2024 End: 09-23-2024 Clinisync Result Encounter Generic External Data Provider [facility] External Department Unsolicited Start: 09-23-2024 End: 09-23-2024 Clinisync Result Encounter Generic External Data Provider [facility] External Department Unsolicited Start: 09-08-2024 End: 09-08-2024 Office outpatient visit 15 minutes Crescencio Marin DO Work Phone: [facility] Comment on above: ASHD (arteriosclerot ic heart disease); History of coronary artery stent placement; PVC (premature ventricular contraction); BMI 30.0-30.9,adult; Former cigarette smoker; Hyperlipidemia, unspecified hyperlipidemia type Start: 09-08-2024 End: 09-08-2024 ambulatory [facility] Ambulatory Start: 05-21-2024 End: 05-21-2024 Patient encounter procedure Frantz Conley II Work Phone: [facility] [place] Work Phone: Start: 05-21-2024 End: 05-21-2024 ambulatory Frantz Conley II Work Phone: [facility] Work Phone: Start: 04-30-2024 End: 04-30-2024 ambulatory Frantz Conley II Work Phone: [facility] Work Phone: Start: 04-30-2024 End: 04-30-2024 Patient encounter procedure Frantz Conley II Work Phone: [facility]-Lab [facility] [place] Work Phone: Start: 04-22-2024 End: 04-22-2024 Refill Day Saturday [employer]PER[employer] Work Phone: [facility] Comment on above: Mixed hyperlipidemia (CMS/HCC) (Primary Dx) Start: 04-21-2024 End: 04-21-2024 Clinisync Result Encounter Generic External Data Provider [facility] External Department Unsolicited Start: 04-21-2024 End: 04-21-2024 Clinisync Result Encounter Generic External Data Provider [facility] External Department Unsolicited Start: 03-12-2024 End: 03-12-2024 Bamboo flowsheet Frantz Conley MD Work Phone: [facility] Start: 03-12-2024 End: 03-12-2024 Bamboo flowsheet Franzt Conley MD Work Phone: [facility] Start: 03-12-2024 End: 03-12-2024 Office outpatient visit 25 minutes Frantz Conley MD Work Phone: [facility] Comment on above: Benign essential HTN (CMS/HCC) (Primary Dx); Flu vaccine need; Coronary artery disease involving catawba coronary artery of catawba heart without angina pectoris (CMS/HCC); Mixed hyperlipidemia (CMS/HCC); Acquired hypothyroidism (CMS/HCC); Prostate cancer screening Start: 03-12-2024 End: 03-12-2024 ambulatory FRANTZ CONLEY Not Available Start: 01-01-2024 End: 01-01-2024 ambulatory [facility] Ambulatory Start: 01-01-2024 End: 01-01-2024 Office outpatient visit 25 minutes [facility] Work Phone: [facility] Comment on above: ASHD (arteriosclerot [...] / Non-visit II Montrell Conley Work Phone: [facility] Gastroenterology Work Phone: Start: 10-23-2023 End: 10-23-2023 Admission to same day surgery center II Frantz Conley Work Phone: [facility]-Digestive Health Work Phone: Start: 10-23-2023 End: 10-23-2023 ambulatory II Frantz Conley Work Phone: [facility] Work Phone: Start: 10-01-2023 End: 10-01-2023 ambulatory II Frantz Conley Work Phone: [facility] Work Phone: Start: 10-01-2023 End: 10-01-2023 Patient encounter procedure II Frantz Conley Work Phone: [facility]-Ultrasound [facility] [place] Work Phone: Start: 09-17-2023 End: 09-17-2023 ambulatory II Frantz Conley Work Phone: [facility] Work Phone: Start: 09-17-2023 End: 09-17-2023 Patient encounter procedure II Frantz Jarvis Work Phone: [facility] [place] Work Phone: Start: 06-20-2023 End: 06-20-2023 Office outpatient visit 40 minutes Crescencio Marin Work Phone: [facility] Comment on above: ASHD (arteriosclerot ic heart disease); History of coronary artery stent placement; Ascending aorta dilation (CMS/HCC); Iron deficiency anemia, unspecified iron deficiency anemia type; PVC (premature ventricular contraction); Former cigarette smoker Start: 06-05-2023 End: 06-05-2023 ambulatory II Frantz Jarvis Work Phone: [facility] Work Phone: Start: 06-05-2023 End: 06-05-2023 Patient encounter procedure II Frantz Jarvis Work Phone: [facility] [place] Work Phone: Start: 05-08-2023 Bamboo flowsheet [...] Hyperchylomicronemia (CMS/HCC) Start: 05-01-2023 End: 05-01-2023 ambulatory MD Jose Manning Work Phone: [facility] Work Phone: Start: 05-01-2023 End: 05-01-2023 Departed Referred MD Jose Manning Work Phone: [facility]-LAB [facility] Start: 10-04-2022 End: 10-04-2022 ambulatory II Frantz Conley Work Phone: [facility] Work Phone: Start: 10-04-2022 End: 10-04-2022 Patient encounter procedure II Frantz Conley Work Phone: [facility] [place] Work Phone: Start: 09-28-2022 End: 09-28-2022 ambulatory II Frantz Conley Work Phone: [facility] Work Phone: Start: 09-28-2022 End: 09-28-2022 Registered Recurring II Frantz Conley Work Phone: [facility]-Cancer Center Work Phone: Start: 09-18-2022 End: 09-18-2022 ambulatory Mikc Branch Other [employer] Other Start: 09-18-2022 Patient encounter procedure Mick Branch [facility] Start: 11-08-2021 End: 11-09-[address] KARL MENON Facility: Start: 11-06-2021 End: 11-06-2021 Patient encounter procedure II Frantz Conley Work Phone: [facility]-Respiratory Therapy Start: 10-10-2021 End: 10-10-2021 Patient encounter procedure II Frantz Conley Work Phone: [facility]CT Scan [facility] [place] Start: 09-20-2021 End: 09-20-2021 Patient encounter procedure II Frantz Conley Work Phone: [facility]Ul[facility]ound [facility] [place] Start: 09-19-2021 End: 09-19-2021 Admission to same day surgery center II Frantz Conley Work Phone: [facility] Start: 09-15-2021 End: 09-15-2021 Patient encounter procedure II Frantz Conley Work Phone: [facility]-Pre-Surgical Testing Start: 09-13-2021 End: 09-13-2021 ambulatory Mick Branch Other [employer] Other Start: 09-13-2021 Patient encounter procedure Mick Thaisadam [facility] Start: 08-16-2021 End: 08-17-2021 Evaluation and management of inpatient SHANTANU [facility] Start: 08-16-2021 End: 08-17-2021 Evaluation and management of inpatient Leonard Johnson MD [facility] 1 Comment on above: Subarachnoid hemorrh age following injury, no loss of consciousness, initial encounter (HCC) (Primary Dx); Facial laceration, initial encounter Start: 08-16-2021 End: 08-16-2021 ambulatory KEILY RENTERIA Facility: Start: 07-12-2021 End: 07-13-2021 ambulatory MICK BRANCH Facility: Start: 07-11-2021 End: 07-11-2021 ambulatory Mick Diadam Other [employer] Other Start: 07-11-2021 [facility] visit new patient Mick Branch [facility] Start: 03-01-2021 End: 03-01-[address] FRANTZ CONLEY Facility:[facility] Start: 02-03-2021 End: 02-03-[address] FRANTZ CONLEY Facility:[facility] Start: 10-30-2018 End: 10-31-2018 Patient encounter procedure JOSIAH SCHAFER Facility:[facility] Start: 02-28-2018 End: 03-01-2018 Patient encounter procedure INDIA ANDREA Facility:[facility] Start: 02-25-2018 End: 02-25-2018 Patient encounter procedure Hardeep Fraga Facility:[facility] Start: 02-11-2018 End: 02-11-2018 Patient encounter procedure Hardeep Fraga Facility:[facility] Procedures Date Procedure Procedure Detail Performing Clinician Start: 10-01-2024 ALL BASIC METABOLIC PANEL Generic Silica Spray Mixer al Data Provider Start: 10-01-2024 ALL LIPID PROFILE (FASTING) Generic Exte rnal Data Provider Start: 10-01-2024 [facility] ALT Generic External Data Provider Start: 10-01-2024 [facility] AST Generic External Data Provider Start: 09-23-2024 ALL CBC WITH AUTO DIFF Generic External Data Provider Start: 05-21-2024 Ultrasonography of abdomen Frantz Conley II Work Phone: Start: 04-21-2024 ALL CBC WITH AUTO DIFF Generic External Data Provider Start: 01-01-2024 Ecg routine ecg w/least 12 lds w/i&r Crescencio Marin DO Work Phone: Start: 12-05-2023 ALL CBC WITH AUTO DIFF Generic External Data Provider Start: 10-23-2023 Esophagogastroduodenoscopy II Frantz roman Work Phone: Start: 10-01-2023 Ultrasonography of liver II Frantz Conley Work Phone: Start: 06-20-2023 History of placement of stent for coronary artery disease History of coronary artery stent placement Crescencio Marin DO Work Phone: Start: 06-20-2023 Ecg routine ecg w/least 12 lds w/i&r Crescencio Marin DO Work Phone: Start: 06-05-2023 US scan of spleen II Frantz Conley Work Phone: Start: 04-29-2023 Lipid 1996 panel - Serum or Plasma Mando hernandez Tomas JEAN Work Phone: Start: 10-04-2022 Ultrasonography of liver [...] Ct head/brain w/o contrast material Paramjit alin Arteaga DO Work Phone: History of placement of stent for coronary artery disease History of coronary artery stent placement Crescencio Marin DO Work Phone: History of placement of stent for coronary artery disease History of coronary artery stent placement Crescencio Marin DO Work Phone: History of placement of stent for coronary artery disease History of coronary artery stent placement Rosanna Daly PA Work Phone: Plan of Treatment Date Care Activity Detail Author Start: 04-29-2028 Lipid panel Lipid Panel [facility] Start: 10-20-2025 Medicare Annual Wellness (AWV) Medicare Annual Wellness (AWV) [facility] Healthcare Start: 09-14-2025 End: 09-14-2025 Patient encounter procedure 09/14/2025 2:00 PM EDT Office Visit [facility] [address] [place] [address] Crescencio Marin DO [address] [place] [address] [facility] Start: 12-07-2024 End: 12-07-2024 Patient encounter procedure [facility] Start: 11-23-2024 Influenza vaccination Influenza Vaccine (#1) [facility] Healthcare Start: 10-20-2024 Medicare Annual Wellness (AWV) Medicare Annual Wellness (AWV) [facility] Start: 10-20-2024 End: 10-20-2024 Patient encounter procedure [facility] Comment on above: Arrived Start: 10-05-2024 End: 10-05-2024 Patient encounter procedure 10/05/2024 11:00 AM EDT Office Visit [facility] [address] [place] [id number] Frantz Conley MD [address] [place] [address] [facility] Start: 09-08-2024 End: 09-08-2024 Patient encounter procedure 09/08/2024 3:00 PM EDT Office Visit [facility] [address] [place] [address] Crescencio Marin DO [address] [place] [address] [facility] Start: 09-08-2024 End: 09-08-2025 Alanine aminotransferase [Enzymatic activity/volume] in Serum or Plasma by With P-5'-P Alanine Aminotransferase Lab Routine ASHD (arteriosclerotic heart disease) Hyperlipidemia, unspecified hyperlipidemia type Expected: 09/08/2024 (Approximate), Expires: 09/08/2025 [facility] Service Area Work Phone: Comment on above: Expected: 09/08/2024 (Approximate), Expi res: 09/08/2025 Start: 09-08-2024 End: 09-08-2025 Aspartate aminotransferase [Enzymatic activity/volume] in Serum or Plasma by With P-5'-P Aspartate Aminotransferase Lab Routine ASHD (arteriosclerotic heart disease) Hyperlipidemia, unspecified hyperlipidemia type Expected: 09/08/2024 (Approximate), Expires: 09/08/2025 [facility] Work Phone: Comment on above: Expected: 09/08/2024 (Approximate), Expi res: 09/08/2025 Start: 09-08-2024 End: 09-08-2025 Basic metabolic 2000 panel - Serum or Plasma Basic Metabolic Panel Lab Routine ASHD (arteriosclerotic heart disease) PVC (premature ventricular contraction) Expected: 09/08/2024 (Approximate), Expires: 09/08/2025 [facility] Work Phone: Comment on above: Expected: 09/08/2024 (Approximate), Expi res: 09/08/2025 Start: 09-08-2024 End: 09-08-2025 Lipid 1996 panel - Serum or Plasma Lipid Panel Lab Routine ASHD (arteriosclerotic heart disease) Hyperlipidemia, unspecified hyperlipidemia type Expected: 09/08/2024 (Approximate), Expires: 09/08/2025 [facility] Work Phone: Comment on above: Expected: 09/08/2024 (Approximate), Expi res: 09/08/2025 Start: 04-30-2024 [id number] marker [Mass/volume] in Serum or Plasma [facility] Start: 03-12-2024 End: 03-12-2025 Lipid 1996 panel - Serum or Plasma Lipid panel Lab Routine Mixed hyperlipidemia (CMS/HCC) Expected: 03/12/2024 (Approximate), Expires: 03/12/2025 [facility] Comment on above: Expected: 03/12/2024 (Approximate), Expi res: 03/12/2025 Start: 03-12-2024 End: 03-12-2025 TSH W/REFLEX TO FT4 TSH W/REFLEX TO FT4 Lab Routine Acquired hypothyroidism (CMS/HCC) Expected: 03/12/2024 (Approximate), Expires: 03/12/2025 [facility] Healthcare Comment on above: Expected: 03/12/2024 (Approximate), Expi res: 03/12/2025 Start: 03-12-2024 End: 03-12-2024 Patient encounter procedure [facility] Comment on above: Arrived Start: 12-25-2023 End: 12-25-2023 Patient encounter procedure 12/25/2023 10:20 AM EDT Office Visit [facility] [address] [place] [phone] Crescencio Marin DO [address] [place] [address] [facility] Start: 11-24-2023 COVID-19 Vaccine () COVID-19 Vaccine () [facility] Start: 11-24-2023 COVID-19 Vaccine () COVID-19 Vaccine () [facility] Start: 11-24-2023 Influenza vaccination Influenza Vaccine (#1) [facility] Start: 11-06-2023 End: 11-06-2023 Patient encounter procedure 11/06/2023 11:00 AM EDT Office Visit [facility] [address] [facility] [address] [place] [phone] Frantz Conley MD [address] [facility] [address] [place] [address] [facility] Start: 10-23-2023 [facility] Start: 10-21-2023 End: 10-21-2023 Patient encounter procedure 10/21/2023 11:00 AM EDT Office Visit [facility] [address] [facility] [address] [place] [id number] Frantz Conley MD [address] [facility] [address] [place] [address] [facility] Start: 09-17-2023 Tlqjk-7-mongstqlwaf.tumor marker [Mass/volume] in Serum or Plasma [facility] Start: 08-23-2023 Medicare Annual Wellness (AWV) Medicare Annual Wellness (AWV) [facility] Start: 06-26-2023 End: 06-26-2023 Professional / ancillary services management 06/26/2023 10:00 AM EDT Ancillary Procedure [facility] [address] [facility] [address] [place] [address] [facility] Start: 06-20-2023 End: 06-19-2024 Holter monitor study Holter Or Event Supervisor Show Operations Cardiac Services Routine PVC (premature ventricular contraction) Expected: 06/20/2023 (Approximate), Expires: 06/19/2024 [facility] Service Area Work Phone: Comment on above: Expected: 06/20/2023 (Approximate), Expi res: 06/19/2024 Start: 06-10-2023 End: 06-10-2023 Patient encounter procedure 06/10/2023 10:30 AM EDT Office Visit [facility] [address] [facility] [address] [place] [phone] Frantz Conley MD [address] [place] [address] [facility] Start: 05-08-2023 End: 05-08-2024 US Abdomen limited [facility] Work Phone: Comment on above: Expected: 05/08/2023, Expires: 5 Start: 05-08-2023 End: 05-08-2023 Patient encounter procedure 05/08/2023 10:30 AM EST Office Visit [facility] [address] [place] [phone] Frantz Conley MD [address] [place] [address] Arrived [facility] Comment on above: Arrived Start: 11-23-2022 COVID-19 Vaccine () COVID-19 Vaccine () [facility] Start: 11-08-2022 Echocardiography Echocardiogram [facility] Start: 05-01-2022 Lipid panel Lipids [facility] Start: 09-19-2021 [facility] Work Phone: Start: 08-24-2021 End: 08-17-2022 CT HEAD WO CONTRAST CT HEAD WO CONTRAST Imaging Routine Subarachnoid hemorrhage following injury, no loss of consciousness, initial encounter (HCC) Expected: 08/24/2021, Expires: 08/17/2022 [facility] Work Phone: Comment on above: Expected: 08/24/2021, Expires: 3 Start: 2021 RSV High Risk: (Elderly (60+) or Population) (1 - 1-dose 75+ series) RSV High Risk: (Elderly (60+) or Population) (1 - 1-dose 75+ series) [facility] Start: 09-30-2019 Pneumococcal 65+ years Vaccine (2 - PCV) Pneumococcal 65+ years Vaccine (2 - PCV) [facility] Start: 09-30-2019 Pneumococcal vaccination Pneumococcal Vaccine (2 of 2 - PCV) [facility] Start: 09-30-2019 Pneumococcal Vaccine: 65+ Years (2 - PCV) Pneumococcal Vaccine: 65+ Years (2 - PCV) [facility] Start: 09-30-2019 Pneumococcal Vaccine: 65+ Years (2 of 2 - PCV) Pneumococcal Vaccine: 65+ Years (2 of 2 - PCV) [facility] Start: 2006 Hepatitis B Vaccines (1 of 3 - Risk 3-dose series) Hepatitis B Vaccines (1 of 3 - Risk 3-dose series) [facility] Start: 2006 RSV patients and/or patients aged 60+ years (1 - 1-dose 60+ series) RSV patients and/or patients aged 60+ years (1 - 1-dose 60+ series) [facility] Start: 07-31-1991 Screening for malignant neoplasm of colon [facility] Start: 1968 DTaP/Tdap/Td Vaccines (1 - Tdap) DTaP/Tdap/Td Vaccines (1 - Tdap) [facility] Start: 1965 DTaP/Tdap/Td vaccine (1 - Tdap) DTaP/Tdap/Td vaccine (1 - Tdap) [facility] Start: 1965 Hepatitis A Vaccines (1 of 2 - Risk 2-dose series) Hepatitis A Vaccines (1 of 2 - Risk 2-dose series) [facility] Start: 1964 Diabetes mellitus screening Diabetes Screening [facility] Start: 1964 Hepatitis C screening [facility] Start: 1958 Depression Screen Depression Screen [facility] Start: 1946 Creatinine measurement Creatinine Level [facility] Start: 1946 Medicare Annual Wellness Visit Medicare Annual Wellness Visit (AWV) [facility] Start: 1946 Potassium measurement Potassium Level [facility] Start: 1946 Thyroid stimulating hormone measurement TSH Level [facility] Oxygen therapy [[facility]ini [facility] Data Set] Initiate Oxygen Therapy Protocol Respiratory Care Routine As Needed until discontinued starting 08/16/2021 [facility] [employer] Work Phone: Comment on above: As Needed until discontinued starting Patient Education Hemorrhoids Co ross polyps Esophageal varices Diverticulosis Know your Meds [facility] Work Phone: Prostate specific Ag [Mass/volume] in Serum or Plasma PSA Lab Routine Prostate cancer screening Ordered: 03/12/2024 [facility] Work Phone: Comment on above: Ordered: 03/12/2024 End: 08-16-2021 Speech and language therapy regime Speech language pathology evaluation TAXICAB COORDINATOR Routine One Time for 1 Occurrences starting 08/16/2021 until 08/16/2021 CAROL ANN TRIPATHI [facility] Work Phone: Comment on above: One Time for 1 Occurrences starting 07/24 until 08/16/2021 US Abdomen limited [facility] Immunizations Immunization Date Immunization Notes Care Provider [facility] 03-12-2024 Influenza, High-dose Seasonal, Quadrivalent, Preservative Free Frantz Conley MD Work Phone: [facility] 03-12-2024 influenza virus vacc ine, unspecified formulation Generic Provider [facility] 12-15-2023 influenza, high dose seasonal, preservative-free Generic Provider [facility] 01-04-2023 Influenza, Seasonal, Quadrivalent, Adjuvanted Frantz Conley MD Work Phone: [facility] 01-04-2023 influenza virus vacc ine, unspecified formulation Generic Provider [facility] 03-21-2022 Influenza, High-dose Seasonal, Quadrivalent, Preservative Free Frantz Conley MD Work Phone: [facility] Work Phone: 03-01-2021 COVID-19 [id number].COV2.S (Caleb) II Frantz Conley Work Phone: [facility] 01-06-2021 influenza, high dose seasonal, preservative-free Frantz Conley MD Work Phone: [facility] 01-06-2021 Influenza, High-dose Seasonal, Quadrivalent, Preservative Free Frantz Conley MD Work Phone: [facility] 05-26-2020 COVID-19 mRNA-1273 (Moderna) II Frantz Conley Work Phone: [facility] 04-28-2020 COVID-19 mRNA-1273 (Moderna) II Frantz Conley Work Phone: [facility] 01-06-2020 Influenza, High-dose Seasonal, Quadrivalent, Preservative Free Frantz Conley MD Work Phone: [facility] 08-18-2019 zoster vaccine recombinant Frantz Conley MD Work Phone: [facility] 04-10-2019 zoster vaccine recombinant Frantz Conley MD Work Phone: [facility] 02-06-2019 influenza, high dose seasonal, preservative-free Frantz Conley MD Work Phone: [facility] 09-29-2018 pneumococcal polysaccharide vaccine, 23 valent Frantz Conley MD Work Phone: [facility] 01-14-2018 Influenza, High-dose Seasonal, Quadrivalent, Preservative Free Frantz Conley MD Work Phone: [facility] 12-03-2016 Influenza, High-dose Seasonal, Quadrivalent, Preservative Free Frantz Conley MD Work Phone: [facility] 03-28-2015 influenza, seasonal, injectable, preservative free Frantz Conley MD Work Phone: [facility] 01-10-2015 seasonal influenza, intradermal, preservative free Frantz Conley MD Work Phone: [facility] Payers Date Payer Category Payer [facility] ( and others) [id number] 2024 Self-pay [id number] 2023 For Life (TFL) F OR LIFE [id number] 2022 [employer] ( and others) [id number] 2022 () [id number] 2015 [employer] ( and others) [id number] 2011 Medicare [id number] 1959 [employer] ( and others) [id number] 1959 Medicare [id number] 1946 Unknown [id number] [id number] 1946 Unknown [id number] 2.16.840.1.555938.3.579.2 1946 Unknown [id number] 2.16.840.1.397535.3.579.2 .647 1946 Unknown [id number] 2.16.840.1.755074.3.579.2 .647 1946 Unknown [id number] 2.16.840.1.091733.3.579.2 .175 1946 Unknown [id number] 2.16.840.1.092406.3.579.2 .593 1946 Unknown [id number] 2.16.840.1.696356.3.579.2 .593 1946 Unknown [id number] 2.16.840.1.038545.3.579.2 .593 1946 Unknown [id number] 2.16.840.1.330083.3.579.2 .593 1946 Unknown [id number] 2.16.840.1.396767.3.579.2 .593 1946 Unknown [id number] 2.16.840.1.800144.3.579.2 .1244 1946 Unknown [id number] 2.16.840.1.588718.3.579.2 .1244 1946 Unknown [id number] 2.16.840.1.190646.3.579.2 .1259 1946 Unknown [id number] 2.16.840.1.866793.3.579.2 .1259 1946 Unknown [id number] 2.16.840.1.500215.3.579.2 .1259 Unknown [id number] 2.16.840.1.770576.3.579.2 .531 Unknown [id number] 2.16.840.1.527323.3.579.2 .531 Unknown [id number] 2.16.840.1.222935.3.579.2 .531 Social History Date Type Detail Facility Start: 08-16-2021 Tobacco smoking status UTIS Tobacco smoking consumption unknown [facility] [facility] Start: 08-16-2021 End: 09-08-2024 Alcohol intake Lifetime non-drinker (finding) [facility] Phone: Start: 08-16-2021 History SDOH Alcohol Frequency 1 [facility] Phone: Start: 1945 Sex Assigned At Not on file [facility] Phone: Start: 08-06-2021 End: 01-01-2024 Exposure to SARS-CoV-2 (event) Not sure [facility] Phone: Start: 04-15-2023 End: 10-20-2024 Sex Assigned At [facility] Start: 05-10-2021 End: 10-23-2023 Tobacco smoking status UTIS Never smoked tobacco (finding) [facility] Start: 1945 Sex Assigned At Male [facility] Start: 08-16-2022 End: 01-01-2024 Tobacco use and exposure Smokeless tobacco non-user [facility] Start: 04-22-2023 End: 10-20-2024 Alcohol intake Ex-drinker (finding) [facility] Start: 04-15-2023 End: 10-20-2024 History of Social function [facility] Within the last year , have you been afraid of your partner or ex-partner? No [facility] How often do you get together with friends or relatives? Patient refused [facility] Do you belong to any clubs or organizations such as oriental orthodox groups, unions, fraternal or athletic groups, [...] Start: 06-20-2023 End: 01-01-2024 Tobacco smoking status UTIS Ex-smoker [facility] Work Phone: End: 03-25-2003 History of tobacco use Current smoker [facility] Work Phone: End: 03-25-2003 History of tobacco use Cigarette Smoker [facility] Work Phone: Start: 06-29-2023 Gender identity Identifies as male gender (finding) [facility] Work Phone: Start: 06-29-2023 Sexual orientation Heterosexual (finding) [facility] Work Phone: Start: 05-01-2024 Sex Patient sex unknown (finding) [facility] Start: 05-22-2024 Sex Male (finding) [facility] Goals Date Patient Goal Desired Activity /State Functional Status Date Assessment Result Facility 10-20-2024 Patient Health Quest ionnaire 2 item (PHQ-2) [Reported] [facility] 10-05-2024 Patient Health Quest ionnaire 2 item (PHQ-2) [Reported] [facility] Clinical Notes 05-23-2021 to 10-20-2024 HERMES Campa - 10/20/2024 2:30 PM Anne-Marie Conley MD - 10/05/2024 11:00 AM Eliezer Marin DO - 09/08/2024 3:00 PM EDTPatient Instructions Note Date & Type Note Facility 10-20-2024 History of Present illness Narrative Images from the original note were not included. Subjective Patient ID: Pankaj Payne is a 79 y.o. male who presents for Medicare Annual Wellness Visit Subsequent. His is going through a lot with her health right now. She is currently doing dialysis three times a week. Medicare Wellness Over the past 2 weeks, how often have you been bothered by any of the following problems? Little interest or pleasure in doing things: Not at all Feeling down, depressed, or hopeless: Not at all Patient Health Questionnaire-2 Score: 0 Over the past 2 weeks, how often have you been bothered by any of the following problems? Trouble falling or staying asleep, or sleeping too much: Not at all Feeling tired or having little energy: Not at all Poor appetite or overeating: Not at all Feeling bad about yourself - or that you are a failure or have let yourself or your family down: Not at all Trouble concentrating on things, such as reading the newspaper or watching television: Not at all Moving or speaking so slowly that other people could have noticed? Or the opposite - being so fidgety or restless that you have been moving around a lot more than usual.: Not at all Thoughts that you would be better off or hurting yourself in some way: Not at all Patient Health Questionnaire-9 Score: 0 Dave Fall Risk History of Falling, Immediate or Within 3 Months: No Health Risk Assessment Form Do you need help eating, bathing, using the toilet, dressing, or getting around your home?: No Can you prepare your own meals?: Yes Can you do your own housework without help?: Yes Can you shop for groceries or clothes without help?: Yes Do you exercise for about 20 minutes 3 or more days a week?: No How confident are you that you can control and manage most of your health problems?: Very confident Can you mange your money, credit cards and accounts, pay bills and taxes?: Yes Vision Screening: Yes, no gross abnormalities Hearing Screening: Yes, no gross abnormalities Cognitive Screening Self Assessment: No overt cognitive deficiency is apparent by direct observation Three Word Registration: Village, Kitchen, Baby Clock Drawing: Partial Clock - 1 Three Word Recall: 2/3 words correct - 2 (all numbers correct - time wrong) Total Score (0-5 Points): 3 Pain Assessment Pain Score: 2 Advance Care Planning Do you have a living will?: Yes Do you have a medical power of patent prosecution attorney?: Yes Current Outpatient Medications on File Prior to Visit Medication Sig Dispense Refill Ferrous Gluconate (iron) 240 (27 Fe) MG tablet Take 1 tablet by mouth Daily [DISCONTINUED] ferrous sulfate 325 (65 Fe) MG tablet Take 325 mg by mouth in the morning. Take with meals. atorvastatin (Lipitor) 20 MG tablet Take 1 tablet (20 mg) by mouth at bedtime 90 tablet 3 clopidogrel (Plavix) 75 MG tablet Take 1 tablet (75 mg) by mouth Daily 90 tablet 3 levothyroxine (Synthroid) 88 MCG tablet TAKE 1 TABLET DAILY (DECREASED) 100 tablet 3 Multiple Vitamins-Minerals (ONE DAILY ADULTS 50+ PO) Take 1 tablet by mouth 1 (one) time each day. Alexander-3 Fatty Acids (Fish Oil) 1000 MG capsule delayed-release Take 1 capsule by mouth 1 (one) time each day. omeprazole (PriLOSEC) [address] capsule TAKE 1 CAPSULE IN THE MORNING AND 1 CAPSULE IN THE EVENING. TAKE BEFORE MEALS. 180 capsule 3 tiZANidine (Zanaflex) 4 MG tablet TAKE 1 TABLET DAILY AT NIGHT TIME NEEDED 90 tablet 3 [DISCONTINUED] levothyroxine (Synthroid, Levoxyl) 88 MCG tablet take 1 tablet by mouth every morning ON AN EMPTY STOMACH 100 tablet 3 No current facility-administered medications on [...] cholecystitis 08/13/2022 Anemia CAD (coronary artery disease) Calculus of gallbladder with acute on chronic cholecystitis without obstruction 08/13/2022 Calculus of gallbladder with cholecystitis 10/21/2023 Cataract Cataracts, bilateral Cholelithiasis 02/03/2021 Cholelithiasis without obstruction 08/13/2022 Chronic kidney disease History of being hospitalized 04/30/2023 Anemia, Thrombocytopenia, Weakness Hyperlipidemia Hypertension Intracranial subarachnoid hemorrhage (HCC) 08/13/2022 Iron deficiency anemia Liver disease Cirrhotic appearance on laparoscopy PAC (premature atrial contraction) PVC (premature ventricular contraction) Subarachnoid hemorrhage (HCC) 08/16/2021 Past Surgical History: Procedure Laterality Date CARDIAC CATHETERIZATION 10/30/2018 with stent placement CHOLECYSTECTOMY 05/10/2021 PCL CIRCUMCISION 1953 COLONOSCOPY COLONOSCOPY W/ POLYPECTOMY 10/23/2023 ESOPHAGOGASTRODUODENOSCOPY 10/23/2023 Visit Vitals BP 132/84 Pulse 69 Resp 16 Ht 5' 5.5 Wt 178 lb 6.4 oz SpO2 96% BMI 29.24 kg/m Smoking Status Never BSA 1.93 m Review of Systems Constitutional: Negative for chills, fatigue and fever. HENT: Negative for congestion, ear pain, rhinorrhea, sinus pressure and sore throat. Eyes: Negative for pain, discharge and redness. Respiratory: Negative for cough, shortness of breath and wheezing. Cardiovascular: Negative for chest pain, palpitations and leg swelling. Gastrointestinal: Negative for abdominal pain, constipation, diarrhea, nausea and vomiting. Genitourinary: Negative for dysuria, frequency and urgency. Musculoskeletal: Negative for arthralgias and back pain. Skin: Negative for rash. Neurological: Negative for dizziness, numbness and headaches. Psychiatric/Behavioral: Negative for confusion, dysphoric mood and sleep disturbance. Objective Physical Exam Constitutional: General: He is not in acute distress. Appearance: Normal appearance. HENT: Head: Normocephalic and atraumatic. Right Ear: Tympanic membrane and ear canal normal. Left Ear: Tympanic membrane and ear canal normal. Nose: Nose normal. Mouth/Throat: Mouth: Mucous membranes are moist. Pharynx: Oropharynx is clear. Eyes: General: No scleral icterus. Extraocular Movements: Extraocular movements intact. Conjunctiva/sclera: Conjunctivae normal. Pupils: Pupils are equal, round, and reactive to light. Neck: Vascular: No carotid bruit. Cardiovascular: Rate and Rhythm: Normal rate. Rhythm irregular. Pulses: Normal pulses. Pulmonary: Effort: Pulmonary effort is normal. Breath sounds: Normal breath sounds. No wheezing, rhonchi or rales. Abdominal: General: Bowel sounds are normal. There is no distension. Palpations: Abdomen is soft. Tenderness: There is no abdominal tenderness. There is no guarding. Musculoskeletal: General: No swelling, tenderness, deformity or signs of injury. Normal range of motion. Cervical back: Normal range of motion. No tenderness. Lymphadenopathy: Cervical: No cervical adenopathy. Skin: General: Skin is warm and dry. Findings: No erythema. Neurological: General: No focal deficit present. Mental Status: He is alert and oriented to person, place, and time. Cranial Nerves: No cranial nerve deficit. Sensory: No sensory deficit. Motor: No weakness. Coordination: Coordination normal. Gait: Gait normal. Psychiatric: Mood and Affect: Mood normal. Affect is tearful (When discussing his 's health). Behavior: Behavior normal. Thought Content: Thought content normal. Judgment: Judgment normal. Assessment & Plan 1. Medicare annual wellness visit, subsequent (Primary) Reviewed all relevant preventative screenings with the patient in detail. Medicare Wellness form completed and will be scanned into patient's chart. Will continue with yearly Medicare Wellness exams. 2. ACP (advance care planning) Patient willing to discuss ACP. Pt has Living Will and DPOA in place. 3. Chronic insomnia This is a chronic medical condition that is stable since last assessment. Will continue to monitor. 4. Other chronic pain This is a chronic medical condition that is stable since last assessment. No changes in treatment are suggested at this time. Continue Tizanidine as needed. 5. Benign essential HTN The patient is seeing a rn medical surgical for this condition, treatment is deferred to that specialist. Correspondence from that specialist and any available testing were reviewed during today's visit. 6. 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 Correspondence from that specialist and any available testing were reviewed during today's visit. 7. Coronary artery disease involving catawba coronary artery of catawba heart without angina pectoris The patient is seeing a rn medical surgical for this condition, treatment is deferred to that specialist. Correspondence from that specialist and any available testing were reviewed during today's visit. 8. Dilatation of aorta The patient is seeing a rn medical surgical for this condition, treatment is deferred to that specialist. Correspondence from that specialist and any available testing were reviewed during today's visit. 9. History of coronary artery stent placement The patient is seeing a rn medical surgical for this condition, treatment is deferred to that specialist. Correspondence from that specialist and any available testing were reviewed during today's visit. 10. PVCs (premature ventricular contractions) The patient is seeing a rn medical surgical for this condition, treatment is deferred to that specialist. Correspondence from that specialist and any available testing were reviewed during today's visit. 11. Sinus arrhythmia The patient is seeing a rn medical surgical for this condition, treatment is deferred to that specialist. Correspondence from that specialist and any available testing were reviewed during today's visit. 12. Sinus bradycardia The patient is seeing a rn medical surgical for this condition, treatment is deferred to that specialist. Correspondence from that specialist and any available testing were reviewed during today's visit. 13. Abnormal LFTs The patient is seeing a rn medical surgical for this condition, treatment is deferred to that specialist. Correspondence from that specialist and any available testing were reviewed during today's visit. 14. Diverticulosis of colon The patient is seeing a rn medical surgical for this condition, treatment is deferred to that specialist. Correspondence from that specialist and any available testing were reviewed during today's visit. 15. Gastroesophageal reflux disease without esophagitis The patient is seeing a rn medical surgical for this condition, treatment is deferred to that specialist. Correspondence from that specialist and any available testing were reviewed during today's visit. 16. 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 Correspondence from that specialist and any available testing were reviewed during today's visit. 17. Cervical spondylolysis This is a chronic medical condition that is stable since last assessment. No changes in treatment are suggested at this time. Continue Tizanidine as needed. 18. Muscle cramps This is a chronic medical condition that is stable since last assessment. No changes in treatment are suggested at this time. Continue Tizanidine as needed. 19. Acquired hypothyroidism This is a chronic medical condition that is stable since last assessment. No changes in treatment are suggested at this time. Continue Levothyroxine as prescribed. Will continue to monitor with routine labs. 20. BMI 29.0-29.9,adult Encouraged healthy diet. Stay active. Will continue to monitor. 21. Vitamin D deficiency This is a chronic medical condition that is stable since last assessment. No changes in treatment are suggested at this time. Continue supplement daily. Will continue to monitor with routine labs. 22. Iron deficiency anemia, unspecified iron deficiency anemia type The patient is seeing a rn medical surgical for this condition, treatment is deferred to that specialist. Correspondence from that specialist and any available testing were reviewed during today's visit. 23. Pancytopenia, acquired (CMS-HCC) The patient is seeing a rn medical surgical for this condition, treatment is deferred to that specialist. Correspondence from that specialist and any available testing were reviewed during today's visit. 24. Former cigarette smoker The patient was counseled on the importance of maintaining cigarette smoking abstinence. The patient continues to refrain from smoking and is committed to avoiding tobacco use. 25. Mixed hyperlipidemia This is a chronic medical condition that is stable since last assessment. No changes in treatment are suggested at this time. Continue Atorvastatin. Will continue to monitor with routine labs. 26. Situational anxiety Patient has been under more stress lately as his is going through a lot regarding her health. No medications at this time. Can always consider a medication in the future if needed. 27. Unsteadiness on feet No recent falls. Will continue to monitor. 28. Esophageal varices without bleeding (HCC) The patient is seeing a rn medical surgical for this condition, treatment is deferred to that specialist. Correspondence from that specialist and any available testing were reviewed during today's visit. 29. Other secondary pulmonary hypertension (HCC) The patient is seeing a rn medical surgical for this condition, treatment is deferred to that specialist. Correspondence from that specialist and any available testing were reviewed during today's visit. 30. Grade II diastolic dysfunction The patient is seeing a rn medical surgical for this condition, treatment is deferred to that specialist. Correspondence from that specialist and any available testing were reviewed during today's visit. Follow up for Appointment As Scheduled. Rosanna MURILLO PA-C documented in this encounter [facility] 10-05-2024 History of Present illness Narrative Images from the original note were not included. Subjective Patient ID: Pankaj Payne is a 79 y.o. male who presents for hypotension- and routine follow up He has stopped coreg as directed (per telephone call) denies any lightheadedness,syncope,weakness No new medical complaints today He is sched for a medicare wellness 10/20/24 Over the past 2 weeks, how often have you been bothered by any of the following problems? Little interest or pleasure in doing things: Not at all Feeling down, depressed, or hopeless: Not at all Patient Health Questionnaire-2 Score: 0 Current Outpatient Medications on File Prior to Visit Medication Sig Dispense Refill atorvastatin (Lipitor) 20 MG tablet Take 1 tablet (20 mg) by mouth at bedtime 90 tablet 3 clopidogrel (Plavix) 75 MG tablet Take 1 tablet (75 mg) by mouth Daily 90 tablet 3 levothyroxine (Synthroid, Levoxyl) 88 MCG tablet take 1 tablet by mouth every morning ON AN EMPTY STOMACH 100 tablet 3 Multiple Vitamins-Minerals (ONE DAILY ADULTS 50+ PO) Take 1 tablet by mouth 1 (one) time each day. Alexander-3 Fatty Acids (Fish Oil) 1000 MG capsule delayed-release Take 1 capsule by mouth 1 (one) time each day. omeprazole (PriLOSEC) [address] capsule TAKE 1 CAPSULE IN THE MORNING AND 1 CAPSULE IN THE EVENING. TAKE BEFORE MEALS. 180 capsule 3 tiZANidine (Zanaflex) 4 MG tablet TAKE 1 TABLET DAILY AT NIGHT TIME NEEDED 90 tablet 3 [DISCONTINUED] carvedilol (Coreg) 3.125 MG tablet Take 1 tablet (3.125 mg) by mouth in the morning and 1 tablet (3.125 mg) in the evening. Take with meals. 180 tablet 3 No current facility-administered medications on [...] cholecystitis 08/13/2022 Anemia CAD (coronary artery disease) Calculus of gallbladder with acute on chronic cholecystitis without obstruction 08/13/2022 Calculus of gallbladder with cholecystitis 10/21/2023 Cataract Cataracts, bilateral Cholelithiasis 02/03/2021 Cholelithiasis without obstruction 08/13/2022 Chronic kidney disease History of being hospitalized 04/30/2023 Anemia, Thrombocytopenia, Weakness Hyperlipidemia Hypertension Intracranial subarachnoid hemorrhage (HCC) 08/13/2022 Iron deficiency anemia Liver disease Cirrhotic appearance on laparoscopy PAC (premature atrial contraction) PVC (premature ventricular contraction) Subarachnoid hemorrhage (HCC) 08/16/2021 Past Surgical History: Procedure Laterality Date CARDIAC CATHETERIZATION 10/30/2018 with stent placement CHOLECYSTECTOMY 05/10/2021 PCL CIRCUMCISION 1953 COLONOSCOPY COLONOSCOPY W/ POLYPECTOMY 10/23/2023 ESOPHAGOGASTRODUODENOSCOPY 10/23/2023 Visit Vitals BP 110/62 Pulse (!) 48 Ht 5' 5.5 Wt 181 lb SpO2 97% BMI 29.66 kg/m Smoking Status Never BSA 1.95 m Review of Systems Constitutional: Negative for fatigue. Cardiovascular: Negative for chest pain and palpitations. Neurological: Negative for dizziness, syncope, weakness and light-headedness. Objective Physical Exam Constitutional: General: He is not in acute distress. Appearance: He is normal weight. He is not ill-appearing. HENT: Head: Normocephalic. Cardiovascular: Rate and Rhythm: Bradycardia present. Rhythm irregular. Heart sounds: Normal heart sounds. No murmur heard. Pulmonary: Effort: Pulmonary effort is normal. Breath sounds: Normal breath sounds. Musculoskeletal: General: No swelling. Right lower leg: No edema. Left lower leg: No edema. Neurological: Mental Status: He is alert. Psychiatric: Mood and Affect: Mood normal. Thought Content: Thought content normal. Judgment: Judgment normal. Assessment/Plan Diagnoses and all orders for this visit: Sinus bradycardia - Asymptomatic. He saw Cardiology last month, they will see him back in 6 months. - He stopped Carvedilol recently at my suggestion, as him HR is getting pretty low. We discussed this at length. He will stay off for now, he will likely need a pacemaker at some point but that's not necessary presently. 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 - This office visit was spent in consultation regarding the patient's current medical problems, differential diagnoses, testing/imaging results, and treatment options. Greater than 25 minutes was spent in [id number]-[id number] consultation and coordination of care. Follow up in about 2 months (around 12/06/2024) for Recheck. documented in this encounter [facility] 09-08-2024 History of Present illness Narrative Chief Complaint Patient presents with Follow-up 8 month visit for cad. Subjective Pankaj Payne is a 79 y.o. male 79-year-old gentleman returns for 8-month cardiovascular follow-up and doing well from a cardiovascular standpoint. He has no limitations, no unsteady gait, no recurrent falls or trauma, denies angina or nitrate usage or hospitalizations. He is otherwise doing well from a cardiovascular standpoint with ongoing PVCs, PACs and pauses, evident on last year's Holter monitoring and on exam. He has a prior anterolateral myocardial infarction. Patient has known history of ASHD with PCI of the ostial/proximal circumflex at [facility] he says around 4+ years ago and IFR assessment of the PLV branch which was negative. He has a history of iron deficiency anemia, history of subarachnoid hemorrhage July 2021, history of cirrhosis, history of GI bleeding. Review of Systems All other systems reviewed and are negative. Vitals: 09/08/24 1456 BP: 122/68 BP Location: Left arm Pulse: 58 Weight: 82.6 kg (182 lb) Height: 1.651 m (5' 5 ) Objective Physical Exam Constitutional: Appearance: Normal appearance. [...] no known allergies. Current Medications Current Outpatient Medications Medication Instructions atorvastatin (Lipitor) 20 mg tablet 1 tablet, Daily carvedilol (COREG) 3.125 mg, 2 times daily clopidogrel (Plavix) 75 mg tablet 1 tablet, Daily fish oil concentrate (Alexander-3) 120-180 mg capsule 1,000 mg, Daily levothyroxine (SYNTHROID, LEVOXYL) 88 mcg, Daily before breakfast multivitamin with minerals tablet 1 tablet, Daily omeprazole (PriLOSEC) [address] capsule 1 capsule, 2 times daily tiZANidine (ZANAFLEX) 4 mg, Nightly PRN Assessment/Plan 1. ASHD (arteriosclerotic heart disease) Follow Up In Cardiology 2. History of coronary artery stent placement 3. PVC (premature ventricular contraction) 4. BMI 30.0-30.9,adult 5. Former cigarette smoker 6. Hyperlipidemia, unspecified hyperlipidemia type Scribe Attestation By signing my name below, IKina RN , Scribe attest that this documentation [...] discussion and plan. documented in this encounter [facility] Work Phone: 09-08-2024 Instructions Kina Mcduffie RN - 09/08/2024 3:00 PM EDT Please bring all medicines, vitamins, and [...] since last visit (-) denotes wt loss 7.2 lbs Weight loss needed to achieve BMI 25: 32.1 Lbs Weight loss needed to achieve BMI 30: 2.1 Lbs Provided instructions on dietary changes. documented in this encounter [facility] Work Phone: 05-21-2024 Radiology Diagnostic study note [facility] [address] Ultrasound Report Signed Patient: Pankaj Payne MR#: [id number] : 1945 Acct:[id number] Age/Sex: 78 / M ADM Date: 5 Loc: Room: Type: [facility] Attending Dr: Mick Branch MD Ordering Provider: Mick Branch MD Date of Service: 05/21/24 US/US abdomen limited: K74.60 - Unspecified cirrhosisof liver Copies to: Mick Branch MD~ LIMITED ABDOMINAL ULTRASOUND: CLINICAL HISTORY: Cirrhosis. COMPARISON: Liver ultrasound 10/01/2023 TECHNIQUE: Grayscale and color Doppler images of the right upper quadrant organswere obtained. FINDINGS: Pancreas: Visualized portions appear unremarkable. Liver: Cirrhotic appearing liver without mass or intrahepatic ductal dilatation. Hepatopedal flow is seen within the portal vein. Gallbladder: Removed. CBD: 6 mm. Right renal cyst measuring 4.1 cm without hydronephrosis US/US abdomen limited IMPRESSION: CIRRHOTIC LIVER WITHOUT MASS.. Impression dictated by: Kartik Claros Jr., DJonathan05/21/2024 10:23 AM Dictation Location: [place] [address] Tech: Lizzy Llanes Transcribed By: USMAN 05/21/24 1023 Dictated By: Kartik Claros Jr, DO 05/21/24 1022 Signed By: 05/21/24 1023 [facility] 04-30-2024 Evaluation note Diagnosis Onset Date Resolution Cirrhosis, nonalcoholic acute F ebruary 2024 12:56pm Esophageal varices acute Februa ry 2024 12:56pm GAVE (gastric antral vascular ectasia) acute April 30, 2024 12:56pm Iron deficiency anemia acute Fe bruary 2024 12:56pm Metabolic dysfunction-associated steatohepatitis (MASH) acute April 30, 2024 12:56pm Metabolic dysfunction-associated steatotic liver disease (MASLD) acute April 30 12:56pm Pancytopenia, acquired chronic Fe bruary 2024 12:56pm [facility] Work Phone: 1(950) 525-170312-19-2024 History of Present illness Narrative* Frantz Conley MD - 03/12/2024 11:00 AM EST Images from the original note were not [...] palpitations. Cardiovascular risk factors: advanced age (older th an 55 for men, 65 for women), hypertension, [...] by mouth 1 (one) time each day. Alexander-3 Fatty Acids (Fish Oil) 1000 MG capsule delayed-release Take 1 capsule by mouth 1 (one) timeeach day. omeprazole (PriLOSEC) [address] capsule [...] stable since last assessment. No changes in treatmentare suggested at this time. Flu vaccine need - Influenza, high-dose seasonal, quadrivalent, PF ([id number]) (Fluzone High Dose [place] 0.7mL dose) Coronary artery disease involving catawba coronary artery of catawba heart without angina pectoris (CMS/HCC) - The patient is experiencing no symptoms from this condition currently, it is considered medicallycontrolled and no change in current therapies are planned. Mixed hyperlipidemia (CMS/HCC) - Lipid panel; Future Acquired hypothyroidism (CMS/HCC) - TSH W/REFLEX TO FT4; Future Prostate cancer screening - PSA Follow up in about 6 months (around 09/10/2024) for Wellness. [facility] [id number] History of Present illness Narrative* Crescencio Marin, - 01/01/2024 10:50 AM EDT Subjective Pankaj Payne is a 78 y.o. [...] with PCI of the ostial/proximal circumflex at [facility] he says around 3 years ago and IFR assessment of the PLV branch which wasnegative. He has a history of iron deficiency [...] daily., Disp: , Rfl: fish oil concentrate (Alexander-3) 120-180 mg capsule, Take 1 capsule (1,000 mg) by mouth once daily., Disp: , Rfl: levothyroxine (Synthroid, Levoxyl) 88 mcg tablet, Take 1 tablet (88 mcg) by mouth once daily in themorning. Take before meals. Take on an empty [...] Attestation By signing my name below, I, Shawna Quintanilla RN , Scribe attest that this documentation has been prepared under the direction and in the presence of Lion Marin DO. Provider Attestation - Scribe documentation All medical record entries made by the Scribe were at my direction and personally dictated by me. Ihave reviewed the chart and agree that the record accurately reflects my personal performance of the history, physical exam, discussion and plan. documented in this [facility] Work Phone: 1(140) 436-468010-09-2024 Instructions* Patient Instructions* Shawna Flores RN - 01/01/2024 10:50 AM [...] Provided instructions on exercise. documented in this [facility] Work Phone: 1(593) 676-839807-31-2024 [facility] History of Present illness Narrative* Crescencio Aníbal Marin, DO - 06/20/2023 10:00 AM EDT Cardiology Consultation- New Consult Reason for referral: [...] with PCI of the ostial/proximal circumflex at [facility] he says around 3 years ago and IFR assessment of the PLV branch which was negative. Details of hislast cardiology visit with nurse practitioner are reviewed Most recent lipid panel is reviewed, LDL is 28, total cholesterol is 74 Today's ECG reveals sinus rhythm with rightward axis, bigeminal PVCs, and possible anteroseptal infarction pattern age indeterminant. Recommendations: Continue current therapies, follow-up in 6 months, obtain 24- hour Holter monitor. HPI: Pankaj Payne is a [...] (88 mcg) by mouth once daily in themorning. Take before meals. Take on an empty stomach., Disp: , Rfl: omeprazole (PriLOSEC) [address] capsule, Take 1 capsule (40 mg) by mouth 2 times a day., Disp: , Rfl: tiZANidine (Zanaflex) 4 mg tablet, 1 tablet (4 mg) as needed at bedtime., Disp: , Rfl: fish oil concentrate (Alexander-3) 120-180 mg capsule, Take 1 capsule (1,000 [...] the direction and in the presence of Lion Marin DO. Provider Attestation - Scribe documentation All medical record entries made by the Scribe were at my direction and personally dictated by me. Ihave reviewed the chart and agree that the record accurately reflects my personal performance of the history, physical exam, discussion and plan. [facility] Work Phone: 1(352) 861-314803-28-2024 Instructions* Patient Instructions* Bernadette Santillan LPN - 06/20/2023 10:00 AM [...] Provided instructions on exercise. [facility] Phone: 1(154) 901-198402-14-2024 History of Present illness Narrative* Frantz Conley MD - 05/08/2023 10:30 AM EST Subjective Patient ID: Pankaj Payne is a 77 y.o. male who presents for Follow-up ([facility] stay: admitted 04/30/23 dx: anemia discharged home 05/01/23 follow up with hematology was 05/07/23) and Anemia. Flowsheet Row Telephone from 05/03/2023 in [facility] with Frantz Conley MD Discharge Information ED or Hospital Discharge? Hospital Patient has been contacted within two business days of discharge Yes Discharge Date 05/01/23 Discharge Hospital [facility] Discharged To: Home Setting Engagement Call Start [...] by mouth 1 (one) time each day. Alexander-3 Fatty Acids (Fish Oil) 1000 MG capsule delayed-release Take 1 capsule by mouth 1 (one) timeeach day. omeprazole (PriLOSEC) [address] capsule Take 1 capsule (40 mg) by mouth in the morning and 1 capsule(40 mg) in the evening. Take before meals. [...] Diagnosis Date Anemia CAD (coronary artery disease) ([facility]) Cataract Cataracts, bilateral Cholelithiasis 02/03/2021 Chronic kidney [...] was discussed with Dr Sevilla, Hematology at [facility], he is following the patient and did see himin the hospital. Iron deficiency anemia, unspecified iron deficiency anemia type - Ambulatory referral to Gastroenterology; Future Other cirrhosis of liver (CMS/HCC) - US LIVER; Future Fatty liver disease, nonalcoholic - US LIVER; Future Hyperchylomicronemia (CMS/HCC) Follow up in about 4 weeks (around 06/05/2023) for Test/Lab Review. documented in this encounterCedar County [facility] [id number] Evaluation note* Encounter Date Diagnosis Assessment Notes Treatment Notes Treatment Clinical Notes Aug, Cirrhosis (ICD-10 - K74.60) Dr. Conley (PCP) will order lab work Repeat fibroscan in 2024 Rto 1 yr Aug, NAFLD (nonalcoholic fatty liver disease) (ICD-10 - K76.0) Aug, PLASCENCIA (nonalcoholic steatohepatitis) (ICD-10 - K75.81) [facility] Other 05-17-2023 Consult note Author Zoila Castorena [facility] August 08, 2022 3:09pm Note Date/Time August 08, 2022 2:08p [facility] [address] Hem/Onc Consult Note - OP Signed Patient: Pankaj Payne MR#: [id number] : 1945 Acct:[id number] Age/Sex: 77 / M Type: REG RCR [...] smoking cigars while he was in the [employer] but was not a regular cigarette smoker. [...] PO QAM 04/26/21 [History Confirmed 08/08/22] omega 5-owo-yya-fish oil 1,000 mg (120 mg-180 mg) capsule [...] chest. 4. Colonic diverticulosis. Impression dictated by: Paola Townsend Jr..OKita10/10/2021 4:37 PM Assessment and Plan (1) Pancytopenia, [...] for coordination of care (as documented) and [id number] counseling of patient and/or family. Dictated By: Zoila Castorena MD DD/ 1407 Signed By: <Electronically signed by MD Zoila Castorena> 08/08/22 9841 [facility] Work Phone: 1(562) 776-808206-22-2022 Evaluation note* Encounter Date Diagnosis Assessment Notes Treatment Notes Treatment Clinical Notes Aug, Fatty liver (ICD-10 - K76.0) ENCOURAGED WATCHING DIET, EXERCISE AND WEIGHT LOSS. WILL NEED TO MONITOR IMAGING EVERY 6 MONTHS. PROCEED WITH EGD Aug, Other cirrhosis of liver (ICD-10 - K74.69) Aug, NAFLD (nonalcoholic fatty liver disease) (ICD-10 - K76.0) Aug, PLASCENCIA (nonalcoholic steatohepatitis) (ICD-10 - K75.81) [facility] Other 05-26-2022 Hospital Discharge instructions* Instructions* Pato Grissom APRN - PRN OCCUPATIONAL THERAPIST - 08/17/2021 Images from the original note [...] called to the trauma nurse line at [phone] and please leave a message. Trauma is [...] Injury Discharge Instructions Thank you for choosing [facility] and [facility] for your recovery needs. The following instructions will help to ensure your comfort and that you are wellprepared for your recovery. Follow-up Visit: The office is located at: [facility] [address] [place] [address], [address], [place] [address] [x] Please have a CT scan of your head done prior to this appointment. Please also call your primary care physician to schedule an appointment for further evaluation and care. You can obtain CT head closer to home and have them electronically send the imaging to [facility] so we can see the scan You can follow up with Neurosurgery closer to home of you can do virtual visit with Porsche the outpatient PRN OCCUPATIONAL THERAPIST Ok to restart your ASPIRIN today 08/17 [...] medications. YOU SHOULD CALL THE OFFICE AT [phone] IF YOU HAVE ANY OF THE FOLLOWING: [...] the emergency department. 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 Answered all patient questions regarding follow-up appointments, follow up CT scan, and medications. * Rishi Arteaga, DO - 08/17/2021 5:44 AM EDT Images from the original note were not included. Trauma Tertiary Survey Admit Date: 08/16/2021 Hospital day 1 Other vehicle: [employer] Past Medical History: Diagnosis Date Hyperlipidemia Hypertension [...] None. HISTORY: ORDERING SYSTEM PROVIDED HISTORY: SAH andWAH TECHNOLOGIST PROVIDED HISTORY: SAH and SDH Decision [...] SYSTEM PROVIDED HISTORY: Impact with object riding chili pepper grinder TECHNOLOGIST PROVIDED HISTORY: Impact with object riding chili pepper grinder Decision Support Exception - unselect if not [...] most recent progress note [facility] Phone: 1(244) 464-457504-19-2022 Evaluation note* Encounter Date Diagnosis Assessment Notes Treatment Notes Treatment Clinical Notes Jun, Cirrhosis (ICD-10 - K74.60) [facility] Other 03-01-2022 History general Narrative - Reported* Type Description Date Surgical History cholecystectomy 05/2021 Surgical History heart stent Surgical History cataracts, bilaterally [facility] Other 03-01-2022 History general Narrative - Reported* Type Description Date Surgical History cholecystectomy 05/2021 Surgical History heart stent Surgical History cataracts, bilaterally Hospitalization History see surgical hx [facility] Other Evaluation note* Diagnosis SAH (subarachnoid hemorrhage) (HCC)- Primary Subarachnoid hemorrhage Subarachnoid hemorrhage following injury, no loss of consciousness, initial encounter (HCC) Facial laceration, initial encounter Subdural hematoma (HCC) Subdural hemorrhage documented in this encounter [facility] [employer] Phone: evaluation noteNo assessment information available [facility] [employer] Work Phone: Evaluation note* Diagnosis Onset Date Resolution Status 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 Pancytopenia, acquired chron ic [facility] [facility] Work Phone: Evaluation note* Diagnosis Pancytopenia, acquired (CMS/HCC)- Primary Pancytopenia Iron deficiency anemia, unspecified iron deficiency anemia type Other cirrhosis of liver (CMS/HCC) Fatty liver disease, 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 [facility] Diagnosis ASHD (arteriosclerotic heart disease) Coronary atherosclerosis of unspecified type of vessel, catawba or graft History of coronary artery stent placement Ascending aorta dilation (CMS/HCC) Thoracic aneurysm without mention of rupture Iron deficiency anemia, unspecified iron deficiency anemia type PVC (premature ventricular contraction) Other premature beats Former cigarette smoker Personal history of tobacco use, presenting hazards to health documented in this encounter [facility] Work Phone: Evaluation note* Diagnosis Onset Date Resolution Status Cirrhosis, nonalcoholic acut e Non-alcoholic fatty liver disease acute Nonalcoholic steatohepatitis (PLASCENCIA) [facility] Work Phone: Evaluation note* Diagnosis ASHD (arteriosclerotic heart disease) Coronary atherosclerosis of unspecified type of vessel, catawba or graft PVC (premature ventricular contraction) Other premature beats History of coronary artery stent placement Former cigarette smoker Personal history of tobacco use, presenting hazards to health BMI 29.0-29.9,adult Bradycardia Other specified cardiac dysrhythmias documented in this encounter [facility] Work Phone: Evaluation note* Diagnosis Benign essential HTN (CMS/HCC)- Primary Flu vaccine need Coronary artery disease involving catawba coronary artery of catawba heart without angina pectoris (CMS/HCC) Mixed hyperlipidemia (CMS/HCC) Mixed hyperlipidemia Acquired hypothyroidism (CMS/HCC) Unspecified hypothyroidism Prostate cancer screening Special screening for malignant neoplasm of prostate documented [facility] encounter [facility]* Diagnosis Mixed hyperlipidemia (CMS/HCC)- Primary Mixed hyperlipidemia documented in this encounter [facility]* Diagnosis ASHD (arteriosclerotic heart disease) Coronary atherosclerosis of unspecified type of vessel, catawba or graft History of coronary artery stent placement PVC (premature ventricular contraction) Other premature beats BMI 30.0-30.9,adult Former cigarette smoker Personal history of tobacco use, presenting hazards to health Hyperlipidemia, unspecified hyperlipidemia type documented in this encounter [facility] Work Phone: Evaluation note* Diagnosis Sinus bradycardia- Primary Other specified cardiac dysrhythmias PVCs (premature ventricular contractions) Other premature beats Coronary artery disease involving catawba coronary artery of catawba heart without angina pectoris 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) documented in this encounter [facility] Healthcare[facility]* Diagnosis Medicare annual wellness visit, subsequent- Primary ACP (advance care planning) Other specified counseling Chronic insomnia Insomnia, unspecified Other chronic pain Benign essential HTN Benign hypertensive heart and CKD, 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), w CHF (HCC) Coronary artery disease involving catawba coronary artery of catawba heart without angina pectoris Dilatation of aorta Aortic aneurysm of unspecified site without mention of rupture History of coronary artery stent placement PVCs (premature ventricular contractions) Other premature beats Sinus arrhythmia Other specified cardiac dysrhythmias Sinus bradycardia Other specified cardiac dysrhythmias Abnormal LFTs Diverticulosis of colon Diverticulosis of colon (without mention of hemorrhage) Gastroesophageal reflux disease without esophagitis Esophageal reflux 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) Cervical spondylolysis Muscle cramps Acquired hypothyroidism Unspecified hypothyroidism BMI 29.0-29.9,adult Vitamin D deficiency Iron deficiency anemia, unspecified iron deficiency anemia type Pancytopenia, acquired (CMS-HCC) Pancytopenia Former cigarette smoker Personal history of tobacco use, presenting hazards to health Mixed hyperlipidemia Mixed hyperlipidemia Situational anxiety Unsteadiness on feet Esophageal varices without bleeding (HCC) Esophageal varices without mention of bleeding Other secondary pulmonary hypertension (HCC) Grade II diastolic dysfunction [facility]* Diagnosis Onset Date Resolution Status Admit Date Cirrhosis, nonalcoholic acute A ugust 2024 1:26pm Esophageal varices acute November 11, 2024 1:26pm Metabolic dysfunction-associ ated steatohepatitis (MASH) acute November 112024 1:26pm [facility] Work Phone: History and physical note Author Mick Branch [facility] October 23, 2023 10:14am Note Date/Time October 23, 2023 10:1 4am [facility] [address] [place] [address] Gastroenterology H&P Signed Patient: Pankaj Payne MR#: [id number] : 1945 Acct:[id number] Age/Sex: 78 / M Adm Date: 4 Loc: Room: Type: [facility] Attending Dr: Mick Branch MD Copies to: [...] signed by Mick Branch MD> 10/23/23 1014 [facility] Work Phone: Hospital Discharge instructions [...] cancer screening. 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 Sevilla. -Notify the doctor if you have any problems. -Follow up with PCP. - Office number [phone].[facility] [employer] Work Phone: Repoqu for referral (narrative)* Consultation (Routine) - Authorized Specialty Diagnoses / Procedures Referred By Contac t Referred To Contact Gastroenterology Diagnoses Iron deficiency anemia, unspecified iron deficiency anemia type Procedures [place] OFFICE/OUTPATIENT [facility] 60 MINUTES Frantz Conley MD [address] [facility] [address] [place] [address] Mick Branch MD [address] [place] [address] [address] [place] [address] Referral ID Status Reason Start Date Expiration Date Visits Requested Visits Authorized [id number] Authorized Specialty Services Required 05/08/2023 11/04/2023 1 1 [facility] ([facility]arrative[facility]No reason for referral information available[facility] Work Phone: Reason for visit NarrativePT HERE AT REQUEST OF DR DAY FOR EVALUATION AND TREATMENT OF CIRRHOSIS, [facility] Other Summary Purpose Family History Relationship Condition Age at Onset Recorded Date/T [...] obstructive pulmonary disease Unk nown Advance Directives Latest Code Status on File Code Status Date Activated Date Inactivated Comments Full Code 08/16/2021 8:15 PM Advance Directive Response Recorded Date/ Time Advance Directives No April 24, 2021 10:52am Advance Directive Response Recorded Date/ Time Advance Directives No April 24, 2021 9:52am Hospital Course Note MR#: [id number] 2 [facility] Pt. Name: Pankaj Payne Admitted: 02/28/2018 [...] no loss of consciousness, initial encounter ([facility]) Procedures CT HEAD WO CONTRAST Pato Grissom, QUALITY AUDIT REPRESENTATIVE - PRN OCCUPATIONAL THERAPIST [address] [place] [address] Referral ID Status Reason Start Date Expiration Date Visits Re quested Visits Authorized [id number] Open 08/24/2021 08/24/2022 1 1 Specialty Diagnoses / Procedures Referred By Contac t Referred To Contact Cardiology Diagnoses PVC (premature ventricular contraction) Procedures Holter Or Event Supervisor Show Operations Crescencio Marin, DO [address] [place] [address] Referral ID Status Reason Start Date Expiration Date V isits Requested Visits Authorized [id number] Pending Review 06/20/2023 06/19/2024 1 1 Specialty Diagnoses / Procedures Referred By Contac t Referred To Contact Diagnoses PVC (premature ventricular contraction) Procedures ECG 12 Lead TomasCrescencio, DO [address] [place] [address] Referral ID Status Reason Start Date Expiration Date V isits Requested Visits Authorized [id number] Authorized 06/20/2023 06/19/2024 1 1 Specialty Diagnoses / Procedures Referred By Contac t Referred To Contact Cardiology Diagnoses ASHD (arteriosclerotic heart disease) Procedures Follow Up In Cardiology Crescencio Marin, DO [address] [place] [address] TomasCrescencio, DO [address] [place] [address] Referral ID Status Reason Start Date Expiration Date V isits Requested Visits Authorized [id number] Authorized 06/20/2023 06/19/2024 1 1 Specialty Diagnoses / Procedures Referred By Contac t Referred To Contact Diagnoses PVC (premature ventricular contraction) Bradycardia Procedures ECG 12 Lead Crescencio Marin, DO [address] [place] [address] Referral ID Status Reason Start Date Expiration Date V isits Requested Visits Authorized [id number] Authorized 01/01/2024 12/31/2024 1 1 Referral ID Status Reason Start Date Expiration Date V isits Requested Visits Authorized [id number] Authorized 01/01/2024 12/31/2024 1 1 Chief Complaint [...] liver disease Nonalcoholic steatohepatitis (PLASCENCIA) Chief Complaint Admit Date 6 month follow up / Cirrhosis April 302024 12:56pm K74.60 K76.0 April 30, 2024 1 :42pm Reason for Visit Admit Date Cirrhosis, nonalcoholic April 30 12:56pm Esophageal varices April 30, 2024 1 2:56pm GAVE (gastric antral vascular ectasia) F ebruary 2024 12:56pm Iron deficiency anemia April 30 12:56pm Metabolic dysfunction-associated steatoh epatitis (MASH) April 30, 2024 12:56pm Metabolic dysfunction-associ ated steatotic liver disease (MASLD) April 30, 2024 12:56pm Pancytopenia, acquired April 30 12:56pm Chief Complaint Admit Date 6 month follow up / Cirrhosis April 302024 12:56pm K74.60 K76.0 April 30, 2024 1 :42pm k74.60 May 21, 2024 9:33am Chief Complaint Admit Date k75.81 k76.0 k31.819 November 02, 2024 1 :22pm Chief Complaint Admit Date k75.81 k76.0 k31.819 November 02, 2024 1 :22pm cirrohosis November 11, 2024 1: 26pm Reason for Visit Admit Date Cirrhosis, nonalcoholic November 11 1:26pm Esophageal varices November 11, 2024 1: 26pm Metabolic dysfunction-associated steatoh epatitis (MASH) November 11, 2024 1:26pm Additional Source Comments (unrecognized sect ion and content) No Status Records FoundNo Status Records FoundNo Status Records FoundNo Status Records FoundNo Status Records FoundNo Status Records FoundNo Status Records FoundNo Status Records FoundNo Status Records Found INFORMATION SOURCE (unrecogn ized section and content) DATE CREATED AUTHOR 03/05/2018 [facility] [place] [facility] DATE CREATED AUTHOR AUTHOR'S ORGANIZ ATION 11/12/2018 [facility] DATE CREATED AUTHOR AUTHOR'S ORGANIZ ATION 06/08/2021 [facility] dical Specialist DATE CREATED AUTHOR AUTHOR'S ORGANIZ ATION 08/20/2021 [facility] DATE CREATED AUTHOR AUTHOR'S ORGANIZ ATION 11/15/2021 [facility] DATE CREATED AUTHOR AUTHOR'S ORGANIZ ATION 07/11/2024 [facility] DATE CREATED AUTHOR AUTHOR'S ORGANIZ ATION 09/11/2024 [facility] DATE CREATED AUTHOR AUTHOR'S ORGANIZ ATION 10/22/2024 [facility] dical Specialists EPIC DATE CREATED AUTHOR AUTHOR'S ORGANIZ ATION 11/13/2024 [facility] Reason for Visit (unrecogniz ed section and content) Reason Comments Head Injury Reason Comments Follow-up [facility] stay: admitted dx: anemia discharged home 05/01/23 follow up with hematology was 05/07/23 Anemia Reason Comments New Patient Visit Referral for CAD Specialty Diagnoses / Procedures Referred By Contac t Referred To Contact Diagnoses PVC (premature ventricular contraction) Procedures ECG 12 Lead Crescencio Marin S, [address] [facility] [address], [place] [id number] Referral ID Status Reason Start Date Expiration Date V isits Requested Visits Authorized [id number] Authorized 06/20/2023 06/19/2024 1 1 Reason Comments Follow-up 6 month Specialty Diagnoses / Procedures Referred By Contac t Referred To Contact Cardiology Diagnoses ASHD (arteriosclerotic heart disease) Procedures Follow Up In Cardiology Crescencio Marin, [address] [place] [address] 2, [place] [phone] Crescencio Marin, [address] [place] [address] 2, [place] [phone] Referral ID Status Reason Start Date Expiration Date V isits Requested Visits Authorized [id number] Authorized 06/20/2023 06/19/2024 1 1 Reason Comments Hypertension Reason Onset Date Comments Med Refill 04/22/2024 Reason Comments Follow-up 8 month visit for ca d. Specialty Diagnoses / Procedures Referred By Contac t Referred To Contact Cardiology Diagnoses ASHD (arteriosclerotic heart disease) Procedures Follow Up In Cardiology Crescencio Marin, [address] [place] [address] [address], [address] [address] Phone: tel: fax: Crescencio Marin, [address] [place] [address] [address], [address] [address] Phone: tel: fax: Referral ID Status Reason Start Date Expiration Date V isits Requested Visits Authorized [id number] Authorized 01/01/2024 12/31/2024 1 1 Reason Comments Hypotension Reason Comments Medicare Annual Wellness Visit Lucinaen t Ordered Prescriptions (unrec ognized section and content) [...] Fluid Infusing) 0838 (Given - Provider: Sybil Avalos RN)2099 (Due) [...] June 05, 2023 End: June 05, 2023 Program Research Specialist Relationship Specialty Start Date End Date Frantz Conley MD [address] [place] [address] PCP - General Internal Medicine 08/16/21 Team [...] Active Zoila Castorena MD Attending Provider Active Program Research Specialist Relationship Specialty Start Date End Date Frantz Conley MD [address] [place] [address] PCP - General Internal Medicine 08/08/22 Frantz Conley MD [address] [place] [address] PCP - ACO Reach 08/16/22 Program Research Specialist Relationship Specialty Start Date End Date Frantz Conley MD [address] [place] [address] PCP - General Internal Medicine 08/08/22 Frantz Conley MD [address] [place] [address] PCP - ACO Reach 08/16/22 Program Research Specialist Relationship Specialty Start Date End Date Frantz Conley MD [address] [place] [address] PCP - General Internal Medicine 06/20/23 Team [...] Provide r Active Start: October 23, 2023 Program Research Specialist Relationship Specialty Start Date End Date Frantz Conley MD [address] [facility] [address] [place] [address] PCP - General Internal Medicine 08/08/22 Frantz Conley MD [address] [facility] [address] [place] [address] PCP - ACO Reach 08/16/22 Program Research Specialist Relationship Specialty Start Date End Date Frantz Conley MD [address] [facility] [address] [place] [address] PCP - General Internal Medicine 08/08/22 Frantz Conley MD [address] [facility] [address] [place] [address] PCP - ACO Reach 08/16/22 Program Research Specialist Relationship Specialty Start Date End Date Frantz Conley MD [address] [place] [address] PCP - General Internal Medicine 08/08/22 Frantz Conley MD [address] [place] [address] PCP - ACO Reach 08/16/22 Program Research Specialist Relationship Specialty Start Date End Date Frantz Conley MD [address] [place] [address] PCP - General Internal Medicine 08/08/22 Frantz Conley MD [address] [place] [address] PCP - ACO Reach 08/16/22 Team Status: Inactive Member Role Status Dates Frantz Conley II MD Primary Care Provider Active Start: April 30, 2024 End: April 30, 2024 Mick Branch MD Attending Provider Active S tart: April 30, 2024 End: April 30, 2024 Team Status: Inactive Member Role Status Dates Frantz Conley II MD Primary Care Provider Active Start: May 21, 2024 End: May 21, 2024 Mick Branch MD Attending Provider Active S tart: May 21, 2024 End: May 21, 2024 Program Research Specialist Relationship Specialty Start Date End Date Frantz Conley MD [address] [place] [address] PCP - General Internal Medicine 06/20/23 Program Research Specialist Relationship Specialty Start Date End Date Frantz Conley MD [address] [place] [address] PCP - General Internal Medicine 08/08/22 Frantz Conley MD [address] [place] [address] PCP - ACO Reach 08/16/22 Program Research Specialist Relationship Specialty Start Date End Date Frantz Conley MD [address] [place] [address] PCP - General Internal Medicine 08/08/22 Frantz Conley MD [address] [place] [address] PCP - ACO Reach 08/16/22 Program Research Specialist Relationship Specialty Start Date End Date Frantz Conley MD [address] [place] [address] PCP - General Internal Medicine 08/08/22 Frantz Conley MD [address] [place] [address] PCP - ACO Reach 08/16/22 Team Status: Inactive Member Role Status Dates Frantz Conley II MD Primary Care Provider Active Start: November 02, 2024 End: November 02, 2024 Mick Branch MD Attending Provider Active S tart: November 02, 2024 End: November 02, 2024 Team Status: Inactive Member Role Status Dates Frantz Conley II MD Primary Care Provider Active Start: November 11, 2024 End: November 11, 2024 Mick Branch MD Attending Provider Active S tart: November 11, 2024 End: November 11, 2024 Goals (unrecognized section and content) Goals may [...] BE BASED ON THE PRIMARY CLINICAL RECORDS. [employer] [facility]. provides no warranty or guarantee of the accuracy or completeness of information in this document.
[2024-12-07 10:16] LABS: Hematocrit 33.2 % (42.0-54.0); Hemoglobin 10.8 g/dL (14.0-18.0); Immature Granulocytes Abs Auto 0.01 10^3/uL (0.00-0.03); Immature Granulocytes Pct Auto 0.3 % (0.0-0.5); Lymphocytes Absolute Auto 0.6 10^3/uL (1.2-3.8); Mean Corpuscular HGB Conc 32.5 g/dL (29.9-35.2); Mean Corpuscular Hemoglobin 31.5 pg (25.9-34.0); Mean Corpuscular Volume 96.8 fL (80.0-94.0); Platelet Count 83 10^3/uL (150-450); Red Blood Count 3.43 10^6/uL (4.70-6.10); White Blood Count 3.1 10^3/uL (4.0-11.0)
[2024-12-07 10:53] LABS: Alanine Aminotransferase 55 U/L (16-63); Albumin Globulin Ratio 0.7; Albumin Level 2.8 g/dL (3.4-5.0); Alkaline Phosphatase 138 U/L (46-116); Anion Gap 10.4; Aspartate Amino Transferase 56 U/L (15-37); Blood Urea Nitrogen 21.0 mg/dL (7.0-18.0); Calcium 8.6 mg/dL (8.5-10.1); Carbon Dioxide 27.9 mmol/L (21.0-32.0); Chloride 110 mmol/L (98-107); Estimated GFR (African America >60 (>=60 mL/min/1.73m^2); Estimated GFR (Non-African Ame >60 (>=60 mL/min/1.73m^2); Globulin 3.8 g/dL; Glucose 144 mg/dL (74-106); Potassium 4.3 mmol/L (3.5-5.1); Sodium 144 mmol/L (136-145); Total Protein 6.6 g/dL (6.4-8.2)
[2024-12-07 11:21] LABS: Iron 41.0 ug/dL (65.0-175.0); Percent Iron Saturation 11.4 %; Total Iron Binding Capacity 360.0 ug/dL (250.0-450.0)
[2024-12-07 13:08] LABS: Ferritin 29.0 ng/mL (26.0-388.0)
== END 2024-12-07 09:37 | disposition home or self-care (01) ==
PROVIDERS: PCP Internal Medicine; Visit Provider Internal Medicine Hematology & Oncology
DX: D64.9 Anemia, unspecified (principal); D50.9 Iron deficiency anemia, unspecified; D50.0 Iron deficiency anemia secondary to blood loss (chronic); K90.9 Intestinal malabsorption, unspecified; D72.819 Decreased white blood cell count, unspecified; D69.6 Thrombocytopenia, unspecified
CPT/HCPCS: 36415; 80053; 82728; 83540; 83550; 85025

== ENCOUNTER 2024-12-21 11:01 | Outpatient (RCR) | payer MEDICARE, OTHER, SELFPAY ==
[2024-12-21 11:04] VITALS: BP 110/71; PULSE 79; TEMP 36.4; O2SAT 96
[2024-12-21] MEDS: FERRIC CARBOXYMALTOSE 750 MG in 0.9 % SODIUM CHLORIDE 250 ML 795 MG IV (11:11)
== END 2024-12-22 23:59 | disposition home or self-care (01) ==
LOC: HEMC 11:01
PROVIDERS: PCP Internal Medicine; Visit Provider Internal Medicine Hematology & Oncology
DX: D64.9 Anemia, unspecified (principal); D50.9 Iron deficiency anemia, unspecified; D50.0 Iron deficiency anemia secondary to blood loss (chronic); K90.9 Intestinal malabsorption, unspecified; D72.819 Decreased white blood cell count, unspecified; D69.6 Thrombocytopenia, unspecified
CPT/HCPCS: 96365; J1439

== ENCOUNTER 2024-12-25 00:24 | Observation (INO) | payer MEDICARE, OTHER, SELFPAY ==
[2024-12-25] VITALS (22 sets, daily range): BP systolic 92–141; BP diastolic 43–86; PULSE 36–99; TEMP 36.7–38.6; O2SAT 92–96; BMI 28.0; BMI 28.9
--- OUTSIDE RECORDS SUMMARY | 2024-12-25 00:34 | XMS_ITS | CCD ---
Author Organization [facility] ion [facility] Care Team Providers Care Publishing Editor Name Role Phone Zahler, Hardeep Unavailable Unavailable [...] Unavailable Frantz Conley MD Primary Care Provider [phone] SHANTANU MARIE Consulting Unavailable FRANTZ CONLEY Primary Care Unavailable HELENA BARRERA Admitting Unavailable HELENA BARRERA Attending Unavailable Mick Branch Unavailable DR FRANTZ CONLEY Primary Care Unavailable RICHMOND, DR ROCHA Admitting Unavailable NKECHI, DR STEPHEN Rasheed Consulting Unavailable RICHMOND, DR ROCHA Attending Unavailable HERMES MITCHELL Consulting Unavailable KEILY RENTERAI Attending Unavailable DR Arthur López Consulting Unavailable [...] Care Unavailable LIBBY Conley Primary Care Provider [phone] MD Mick Branch Attending Provider LIBBY Conley Attending Provider LIBBY Conley Primary Care Provider LIBBY Conley Referring Provider [phone] MD Zoila Castorena Attending Provider MD Mick Branch Attending Provider MD Jose Manning Attending Provider Frantz Conley MD Primary Care Provider Frantz Conley MD Unavailable MD Jose Manning Attending Provider LIBBY Conley Primary Care Provider LIBBY Conley Attending Provider Frantz Conley MD Primary Care Provider LIBBY Conley Primary Care Provider MD Mick Branch Attending Provider Jarvis IIFrantz Primary Care Provider [phone] Mick Branch MD Attending Provider [phone] CRESCENCIO MARIN Attending Unavailable CRESCENCIO MARIN Referring Unavailable FRANTZ CONLEY Primary Care Unavailable CRESCENCIO MARIN Attending Unavailable CRESCENCIO MARIN Referring Unavailable FRANTZ CONLEY B Primary Care Unavailable FRANTZ CONLEY Attending Unavailable [...] sources) HMG-CoA Reductase Inhibitor Start: 04-26-2021 End: 10-30-2025 take 1 tablet by mouth at bedtime atorvastatin (Lipitor) 20 MG tablet Indications: Mixed hyperlipidemia Take 1 tablet (20 mg) by mouth at bedtime 100 tablet 3 10/30/2024 10/30/2025 Active clopidogrel 75 mg oral tablet (20 [...] (4 sources) take 1 capsule by mo [facility] once daily fish oil concentrate ([place]-3) 120-180 mg capsule Take 1 capsule (1,000 mg) by mouth once daily. Active take 1 capsule by mouth three ti mes daily [place]-3 Fatty Acids (FISH OIL) 1000 MG CAPS Take 1,000 mg by mouth 3 times daily 0 Active ferrous gluconate 240 mg oral tablet (3 sources) take 1 tablet by mouth once daily Ferrous Gluconate (iron) 240 (27 Fe) MG tablet Take 1 tablet by mouth Daily Active Fish Oils (3 sources) Fish Oil 1000 MG DAILY Active levothyroxine sodium 0.088 mg oral tablet (20 sources) l-Thyroxine Start: 05-14-2023 levothyroxine (Synthroid) 88 MCG tablet Indications: Acquired hypothyroidism TAKE 1 TABLET DAILY (DECREASED) 100 tablet 3 10/19/2024 Active Start: 04-26-2021 End: 10-09-2023 take 1 tablet [...] Vitamins-Minerals ( ONE DAILY ADULTS 50+ PO) (17 sources) take 1 tablet by mouth once [...] tablet by mouth once daily. 0 Active [place] 7-Awv-Asv-Fish Oil (Fish Oil) 1,000 mg (120 mg-180 mg) Capsule (13 sources) Start: 04-26-2021 take 1 capsule by mouth three times daily [place] 6-Ajq-Uzh-Fish Oil (Fish Oil) 1,000 mg (120 mg-180 mg) Capsule Active 1 CAP PO Three times daily April 26, 2021 1:00am Complies with drug therapy Start: 04-26-2021 take 1 capsule by mo ut three times daily Start: 04-26-2021 take 1 capsule by mo [facility] three times daily [place] 8-Mil-Cva-Fish Oil (Fish Oil) 1,000 mg (120 mg-180 mg) Capsule Active 1 CAP PO Three times daily April 26, 2021 12:00am Start: 04-26-2021 take 1 capsule by mo [facility] three times daily [place] 3-Zbn-Uhz-Fish Oil (Fish Oil) 1,000 mg (120 mg-180 mg) Capsule Active 1 CAP PO Three times daily April 26, 2021 1:00am [place]-3 Fatty Acids (Fish Oil) 1000 MG capsule delayed-release (17 sources) Start: 09-13-2014 take 1 capsule by mouth once daily [place]-3 Fatty Acids (Fish Oil) 1000 MG capsule delayed-release Take 1 capsule by mouth 1 (one) time each day. 09/13/2014 Active Start: 09-13-2014 take 1 capsule by [facility] once daily [place]-3 Fatty Acids (Fish Oil) 1000 MG capsule delayed-release Take 1 capsule by mouth 1 (one) time each day. 0 09/13/2014 Active omeprazole 40 mg delayed release oral capsule (20 sources) Proton Pump Inhibitor Start: 12-05-2023 End: 04-30-2024 omeprazole (PriLOSEC) [address] capsule Indications: Gastroesophageal reflux disease without esophagitis TAKE 1 CAPSULE IN THE MORNING AND 1 CAPSULE IN THE EVENING. TAKE BEFORE MEALS. 180 capsule 3 12/05/2023 Active Start: 04-26-2021 End: 04-30-2024 take 1 capsule [...] Active Start: 04-18-2023 take 1 tablet by lakes[facility] th twice daily as needed Tizanidine 4 mg [...] TAB PO Q6H as needed for pain 21 10May 10, 2021 September 19, 2021 11:42am aspirin [...] dose on Nancy 08/17/21 at 0730, Until Discontinued Do not crush or break. Substituted for Omeprazole (PRILOSEC). polyethylene glycol 3350 [id number] mg powder for oral solution (1 source) [...] [Other specified counseling] 10-20-2024 Episodic Anxiety disorders (19 sources) Anxiety; Translations: [Other specified anxiety disorders] Onset: 08-13-2022 08-13-2022 Chronic Aortic; peripheral; and visceral artery aneurysms (20 sources) Thoracic aortic aneurysm, without rupture; Translations: [Dilatation of aorta] Onset: 11-08-2021 Chronic Cardiac dysrhythmias (20 sources) Multiple premature ventricular complexes; Translations: [Ventricular premature depolarization] Onset: 08-13-2022 08-13-2022 Chronic Cardiac dysrhythmias (13 sources) Bradycardia; Translations: [Bradycardia, unspecified] Onset: 01-01-2024 01-01-2024 Episodic Coronary atherosclerosis and other heart disease (20 sources) Old myocardial infarction; Translations: [Coronary arteriosclerosis] Onset: 02-07-2021 08-13-2022 Chronic Deficiency and other anemia (20 sources) Acquired pancytopenia; Translations: [Other pancytopenia] Onset: 04-22-2023 08-08-2022 Chronic Deficiency and other anemia (4 sources) Other pancytopenia; Translations: [Other pancytopenia] 09-28-2022 Chronic Deficiency and other anemia (2 sources) Iron deficiency anemia, unspecified; Translations: [Iron deficiency anemia, unspecified] 04-30-2024 Episodic Disorders of lipid metabolism (20 sources) Hypertriglyceridemia; 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] Onset: 08-13-2022 08-13-2022 Chronic Diverticulosis and diverticulitis (19 sources) Diverticulosis of colon; Translations: [Diverticulosis of [...] Chronic Hypertension with complications and secondary hypertension (19 sources) Hypertensive heart AND chronic kidney disease [...] Onset: 08-18-2021 Episodic Miscellaneous mental health disorders (19 sources) Chronic insomnia; Translations: [Psychophysiologic insomnia] Onset: 08-13-2022 08-13-2022 Chronic Nutritional deficiencies (19 sources) Vitamin D deficiency; Translations: [Vitamin D deficiency, unspecified] Onset: 08-13-2022 08-13-2022 Chronic Open wounds of head; neck; and trunk (3 sources) Facial laceration ; Translations: [Laceration without foreign body of other part of head, initial encounter] Onset: 08-18-2021 Episodic Other aftercare (1 source) snf (current) use of aspirin; Translations: [CORRECTION CURRENT USE OF ASPIRIN] Onset: 08-18-2021 Episodic Other aftercare (1 source) snf (current) use of antithrombotics/antipl atelets; Translations: [WHARFINGER CHIEF ANTITHROMBOT/ANTIPLATL ETS] Onset: 08-18-2021 Episodic Other and ill-defined heart disease (5 sources) Diastolic dysfunction; Translations: [Other ill-defined heart diseases] Onset: 10-20-2024 10-20-2024 Chronic Other disorders of stomach and duodenum (4 [...] liver] 09-17-2023 Chronic Other nervous system disorders (19 sources) Chronic pain; Translations: [Other chronic pain] Onset: 08-13-2022 08-13-2022 Chronic Other nutritional; endocrine; and metabolic disorders (2 sources) Body mass index 30+ - obesity; Translations: [Body mass index (BMI) 30.0-30.9, adult] Onset: 09-08-2024 09-08-2024 Chronic Other nutritional; endocrine; and metabolic disorders (2 sources) Body mass index (BMI) 30.0-30.9, adult; Translations: [Body mass index (BMI) 30.0-30.9, adult] Onset: 09-08-2024 Chronic Pulmonary heart disease (5 sources) Secondary pulmonary hypertension; Translations: [Other secondary pulmonary hypertension] Onset: 10-20-2024 10-20-2024 Chronic Superficial injury; contusion (1 source) Contusion of [...] Date Documented Da te Episodic/Chronic Abdominal pain (18 sources) Right upper quadrant pain; Translations: [Right upper quadrant pain] Onset: 02-07-2021 Resolved: 10-21-2023 08-13-2022 Episodic Acute cerebrovascular disease (19 sources) Hemorrhage into subarachnoid space of neuraxis; [...] Onset: 02-07-2021 Episodic Deficiency and other anemia (20 sources) Iron deficiency anemia; Translations: [Iron deficiency anemia, unspecified] Onset: 05-08-2023 05-08-2023 Episodic Mood disorders (14 sources) Mood disorders Onset: 10-21-2023 Resolved: 10-20-2024 10-21-2023 Mycoses (17 sources) Onychomycosis due to dermatophyte ; Translations: [Tinea unguium] Onset: 08-13-2022 Resolved: 10-20-2024 08-13-2022 Episodic Other acquired deformities (19 sources) Spondylolysis of cervical spine; Translations: [Spondylolysis, cervical region] Onset: 08-13-2022 08-13-2022 Episodic Other aftercare (1 source) 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; Translations: [OTH CORRECTION CURRENT DRUG THERAPY] Onset: 02-07-2021 Episodic Other connective tissue disease (19 sources) Cramp; Translations: [Cramp and spasm] Onset: 08-13-2022 08-13-2022 Episodic Other disorders of stomach and duodenum (17 sources) Indigestion; Translations: [Functional dyspepsia] Onset: 08-13-2022 Resolved: 10-20-2024 08-13-2022 Episodic Other liver diseases (20 sources) Fatty (change of) liver, not elsewhere classified; Translations: [Other chronic nonalcoholic liver disease] Onset: 09-13-2021 Resolved: 10-21-2023 Chronic Other lower respiratory disease (3 sources) Pleurodynia; Translations: [PLEURODYNIA] Onset: 02-03-2021 Episodic Other nervous system disorders (19 sources) Unsteady when standing; Translations: [Unsteadiness on feet] Onset: 08-13-2022 08-13-2022 Episodic Other nutritional; endocrine; and metabolic disorders (8 sources) Overweight in adulthood with body mass index of 25 or more but less than 30; Translations: [Body mass index (BMI) 29.0-29.9, adult] Onset: 01-01-2024 01-01-2024 Episodic Other nutritional; endocrine; and metabolic disorders (2 sources) Body mass index (BMI) 29.0-29.9, adult; Translations: [Body mass index (BMI) 29.0-29.9, adult] Onset: 01-01-2024 Episodic Other screening for suspected conditions [...] Test Name Value Interpretation Reference Range Facility ALL CBC WITH AUTO DIFFon BASOPHILS ABSOLUTE AUTO 0 [facility] Basophils/100 WBC (Bld) 0.6 % 0.2 - 2.0 % [facility] Eosinophils/100 WBC (Bld) 3.2 % 0.9 - 7.0 % [facility] Erythrocyte distribution width (RBC) [Ratio] 14.3 % 11.0 - 15.0 % [facility] Hematocrit (Bld) [Volume fraction] 33.2 % Low 42.0 - 54.0 % [facility] Hemoglobin (Bld) [Mass/Vol] 10.8 g/dL Low 14.0 - 18.0 g/dL [facility] IMMATURE GRANULOCYTES ABS AUTO 0.01 [facility] Immature granulocytes/100 WBC (Bld) 0.3 % 0.0 - 0.5 % [facility] Interpretation and review of laboratory results Abnormal [facility] LYMPHOCYTES ABSOLUTE AUTO 0.6 Low [facility] Lymphocytes/100 WBC (Bld) 19.4 % Low 20.5 - 60.0 % [facility] MCH (RBC) [Entitic mass] 31.5 pg 25.9 - 34.0 pg [facility] MCHC (RBC) [Mass/Vol] 32.5 g/dL 29.9 - 35.2 g/dL [facility] MCV (RBC) [Entitic vol] 96.8 fL High 80.0 - 94.0 fL [facility] MONOCYTES ABSOLUTE AUTO 0.2 Low [facility] Monocytes/100 WBC (Bld) 7.3 % 1.7 - 12.0 % [facility] NEUTROPHILS ABSOLUTE AUTO 2.2 [facility] Neutrophils/100 WBC (Bld) 69.2 % 43.0 - 75.0 % [facility] Platelet mean volume (Bld) [Entitic vol] 11 fL 9.5 - 13.5 fL [facility] TBH EO # 0.1 [facility]H PLT 83 Low [facility] RBC 3.43 Low [facility]H WBC 3.1 Low [facility] Alanine aminotransferase [En zymatic activity/volume] in Serum or PlasmaOrdered By: Mick Branch on 11-02-2024 ALT [Catalytic activity/Vol] 52 U/L Normal 7-52 [facility] Comment on above: Performed By: #### C MP, CBC, PT #### [facility] [address] [place] [address] Albumin [Mass/volume] in Ser um or Plasma by Bromocresol green (BCG) dye binding methoOrdered By: Mick Branch on 11-02-2024 Albumin BCG dye [Mass/Vol] 3.1 g/dL Low 3.5-5.7 [facility] Alkaline phosphatase [Enzyma tic activity/volume] in Serum or PlasmaOrdered By: Mick Branch on 11-02-2024 ALP [Catalytic activity/Vol] 124 U/L High 34-104 [facility] Comment on above: Result Comment: PERF ORMED BY: [place] [address] PATHOLOGIST PASTRY COOK HELPER GUERA MARROQUIN M.D. Performed By: #### C MP, CBC, PT #### [facility] [address] [place] [address] [place] Aspartate aminotransferase [ Enzymatic activity/volume] in Serum or PlasmaOrdered By: Mick Branch on 11-02-2024 AST [Catalytic activity/Vol] 58 U/L High 13-39 [facility] Comment on above: Performed By: #### C MP, CBC, PT #### [facility] [address] [place] [address] [place] Basophils [#/volume] in Bloo d by Automated countOrdered By: Mick Branch on 11-02-2024 Basophils (Bld) [#/Vol] 0.0 10*3/uL Normal 0.0-0.2 [facility] Comment on above: Result Comment: PERF ORMED BY: [place] [address] PATHOLOGIST PASTRY COOK HELPER GUERA MARROQUIN M.D. Performed By: #### C MP, CBC, PT #### [facility] [address] [place] [address] [place] Basophils/100 leukocytes in Blood by Automated countOrdered By: Mick Branch on 11-02-2024 Basophils/100 WBC (Bld) 0.8 % Normal . [facility] Comment on above: Performed By: #### C MP, CBC, PT #### [facility] [address] [place] [address] [place] Bilirubin.total [Mass/volume ] in Serum or PlasmaOrdered By: Mick Branch on 11-02-2024 Bilirubin [Mass/Vol] 0.9 mg/dL Normal 0.3-1.0 [facility] Comment on above: Performed By: #### C MP, CBC, PT #### [facility] [address] [place] [address] [place] Calcium [Mass/volume] in Ser um or PlasmaOrdered By: Mick Branch on 11-02-2024 Calcium [Mass/Vol] 7.9 mg/dL Low 8.6-10.3 [facility] Comment on above: Performed By: #### C MP, CBC, PT #### [facility] [address] [place] [address] [place] Carbon dioxide, total [Moles /volume] in Serum or PlasmaOrdered By: Mick Branch on 11-02-2024 CO2 [Moles/Vol] 29.1 mmol/L Normal 21.0-31.[address] [facility] Comment on above: Performed By: #### C MP, CBC, PT #### [facility] [address] [place] [address] [place] Chloride [Moles/volume] in S lilly or PlasmaOrdered By: Mick Branch on 11-02-2024 Chloride [Moles/Vol] 110 mmol/L High 98-107 [facility] Comment on above: Performed By: #### C MP, CBC, PT #### [facility] [address] [place] [address] Complete Blood Count Auto Di ffon 11-02-2024 Mean Corpuscular HGB Conc 33.5 g/dL Normal 32.5-35.6 [facility] Comment on above: Performed By: #### C MP, CBC, PT #### [facility] [address] [place] [address] NRBC% 0.0 /100{WBC} Normal 0-0.5 [facility] Comment on above: Performed By: #### C MP, CBC, PT #### [facility] [address] [place] [address] White Blood Count 3.0 [CFU]/mL Low 4.1-10.5 [facility] Comment on above: Performed By: #### C MP, CBC, PT #### [facility] [address] [place] [address] Comprehensive Metabolic Pane ross 11-02-2024 Albumin [Mass/Vol] 3.1 g/dL Low 3.5-5.7 [facility] Comment on above: Performed By: #### C MP, CBC, PT #### [address] GFR/1.73 sq M.predicted MDRD (S/P/Bld) [Vol rate/Area] mL/min/{1.73_m2} Normal [facility] Comment on above: Performed By: #### C MP, CBC, PT #### [facility] [address] [place] [address] [place] Creatinine [Mass/volume] in Serum or PlasmaOrdered By: Mick Branch on 11-02-2024 Creatinine [Mass/Vol] 0.71 mg/dL Normal 0.70-1.30 [facility] Comment on above: Performed By: #### C MP, CBC, PT #### [facility] [address] [place] [address] [place] Eosinophils [#/volume] in Bl ood by Automated countOrdered By: Mick Branch on 11-02-2024 Eosinophils (Bld) [#/Vol] 0.1 10*3/uL Normal 0.0-0.45 [facility] Comment on above: Performed By: #### C MP, CBC, PT #### [facility] [address] Eosinophils/100 leukocytes i n Blood by Automated countOrdered By: Mick Branch on 11-02-2024 Eosinophils/100 WBC (Bld) 1.8 % Normal . [facility] Comment on above: Performed By: #### C MP, CBC, PT #### [address] Erythrocyte distribution wid th [Ratio] by Automated countOrdered By: Mick Branch on 11-02-2024 Erythrocyte distribution width (RBC) [Ratio] 16.4 % High 12.0-14.8 [facility] Comment on above: Performed By: #### C MP, CBC, PT #### [address] Erythrocytes [#/volume] in B lood by Automated countOrdered By: Mick Branch on 11-02-2024 RBC (Bld) [#/Vol] 3.58 10*6/uL Low 3.90-5.60 [facility] Comment on above: Performed By: #### C MP, CBC, PT #### [address] Glucose [Mass/volume] in Ser um or PlasmaOrdered By: Mick Branch on 11-02-2024 Glucose [Mass/Vol] 120 mg/dL High 70-100 [facility] Comment on above: ADA recommended refe rence rangeRandom Glucose Reference Range is dependent on time and content of last meal. Glucose of more than 200 mg/dL in a nonstressed, ambulatory subject supports the diagnosis of Diabetes Mellitus. Result Comment: [place] Glucose Reference Range is dependent on time and content of last meal. Glucose of more than 200 mg/dL in a nonstressed, ambulatory subject supports the diagnosis of Diabetes Mellitus. ADA recommended reference range Performed By: #### C MP, CBC, PT #### [address] Hematocrit [Volume Fraction] of Blood by Automated countOrdered By: Mick Branch on 11-02-2024 Hematocrit (Bld) [Volume fraction] 34.1 % Low 38.8-50.0 [facility] Comment on above: Performed By: #### C MP, CBC, PT #### [address] Hemoglobin [Mass/volume] in BloodOrdered By: Mick Branch on 11-02-2024 Hemoglobin (Bld) [Mass/Vol] 11.4 g/dL Low 13.0-17.0 [facility] Comment on above: Performed By: #### C MP, CBC, PT #### [address] INR in Platelet poor plasma by Coagulation assayOrdered By: Mick Branch on 11-02-2024 INR Coag (PPP) [Relative time] 1.2 {INR} Normal [facility] Comment on above: INR Therapeutic Rang e [...] heart valves: 3 - 4.5 PERFORMED BY: [place] [address] PATHOLOGIST PASTRY COOK HELPER GUERA MARROQUIN M.D. Performed By: #### C MP, CBC, PT #### [address] Leukocytes [#/volume] correc britt for nucleated erythrocytes in Blood by Automated counOrdered By: Mick Branch on 11-02-2024 WBC corrected for nucl RBC Auto (Bld) [#/Vol] 3.0 10*3/uL Low 4.1-10.5 [facility] Leukocytes [#/volume] in Blo od by Automated countOrdered By: Mick Branch on 11-02-2024 WBC (Bld) [#/Vol] 3.0 10*3/uL Low 4.1-10.5 [facility] Comment on above: Performed By: #### C MP, CBC, PT #### [facility] [address] [place] [address] Lymphocytes [#/volume] in Bl ood by Automated countOrdered By: Mick Branch on 11-02-2024 Lymphocytes (Bld) [#/Vol] 0.5 10*3/uL Low 1.00-4.8 [facility] Comment on above: Performed By: #### C MP, CBC, PT #### [facility] [address] Lymphocytes/100 leukocytes i n Blood by Automated countOrdered By: Mick Branch on 11-02-2024 Lymphocytes/100 WBC (Bld) 15.8 % Normal . [facility] Comment on above: Performed By: #### C MP, CBC, PT #### [facility] [address] [place] [address] MCH [Entitic mass] by Automa britt countOrdered By: Mick Branch on 11-02-2024 MCH (RBC) [Entitic mass] 31.9 pg Normal 27.5-35.2 [facility] Comment on above: Performed By: #### C MP, CBC, PT #### [facility] [address] [place] [address] MCHC Auto (RBC) [Mass/Vol]Or dered By: Mick Branch on 11-02-2024 MCHC (RBC) [Mass/Vol] 33.5 g/dL 32.5-35.6 [facility] MCV [Entitic volume] by Auto mated countOrdered By: Mick Branch on 11-02-2024 MCV (RBC) [Entitic vol] 95.2 fL Normal 83.5-101 [facility] Comment on above: Performed By: #### C MP, CBC, PT #### [facility] [address] Monocytes [#/volume] in Bloo d by Automated countOrdered By: Mick Branch on 11-02-2024 Monocytes (Bld) [#/Vol] 0.2 10*3/uL Normal 0.0-0.8 [facility] Comment on above: Performed By: #### C MP, CBC, PT #### [place] [address] [place] Monocytes/100 leukocytes in Blood by Automated countOrdered By: Mick Branch on 11-02-2024 Monocytes/100 WBC (Bld) 6.7 % Normal . [facility] Comment on above: Performed By: #### C MP, CBC, PT #### [address] Neutrophils [#/volume] in Bl ood by Automated countOrdered By: Mick Branch on 11-02-2024 Neutrophils (Bld) [#/Vol] 2.2 10*3/uL Normal 1.8-7.7 [facility] Comment on above: Performed By: #### C MP, CBC, PT #### [facility] [address] [place] [address] [place] Neutrophils/100 leukocytes i n Blood by Automated countOrdered By: Mick Branch on 11-02-2024 Neutrophils/100 WBC (Bld) 74.9 % Normal . [facility] Comment on above: Performed By: #### C MP, CBC, PT #### [address] No Panel InformationOrdered By: Mick Branch on 11-02-2024 Estimated GFR (CKD-EPI) > 60.0 mL/Min [facility] Creatinine Clearance (Chem N/A [facility] Nucleated erythrocytes [Pres ence] in Blood by Automated countOrdered By: Mick Branch on 11-02-2024 Nucleated RBC Auto Ql (Bld) 0.0 /100{WBC} 0-0.5 [facility] Platelet mean volume [Entiti c volume] in Blood by Automated countOrdered By: Mick Branch on 11-02-2024 Platelet mean volume (Bld) [Entitic vol] 8.0 fL Normal 6.6-10.1 [facility] Comment on above: Performed By: #### C MP, CBC, PT #### [facility] [address] Platelets [#/volume] in Bloo d by Automated countOrdered By: Mick Branch on 11-02-2024 Platelets (Bld) [#/Vol] 102 10*3/uL Low 150-450 [facility] Comment on above: Performed By: #### C MP, CBC, PT #### [facility] [address] Potassium [Moles/volume] in Serum or PlasmaOrdered By: Mick Branch on 11-02-2024 Potassium [Moles/Vol] 3.9 mmol/L Normal 3.5-5.1 [facility] Comment on above: Performed By: #### C MP, CBC, PT #### [facility] [address] [place] [address] Protein [Mass/volume] in Ser um or PlasmaOrdered By: Mick Branch on 11-02-2024 Protein [Mass/Vol] 5.8 g/dL Low 6.4-8.9 [facility] Comment on above: Performed By: #### C MP, CBC, PT #### [facility] [address] [place] [address] Prothrombin time (PT)Ordered By: Mick Branch on 11-02-2024 PT Coag (PPP) [Time] 13.5 s High 9.0-12.9 [facility] Comment on above: A hematocrit value g reater than 55% may lead to inaccurate results in coagulation testing. Patients having hematocrit values >55% require a special collection tube for coagulation studies. Please contact the laboratory at [phone] for redraw instructions. Result Comment: A he matocrit value greater than 55% may lead to inaccurate results in coagulation testing. Patients having hematocrit values >55% require a special collection tube for coagulation studies. Please contact the laboratory at [phone] for redraw instructions. Performed By: #### C MP, CBC, PT #### [address] Serum globulin measurement b y calculation (mass/volume)Ordered By: Mick Branch on 11-02-2024 Globulin (S) [Mass/Vol] 2.7 g/dL [facility] Comment on above: Performed By: #### C MP, CBC, PT #### [address] Serum or plasma albumin/glob ulin mass ratioOrdered By: Mick Branch on 11-02-2024 Albumin/Globulin [Mass ratio] 1.1 {ratio} [facility] Comment on above: Performed By: #### C MP, CBC, PT #### [address] Serum or plasma anion gap de terminationOrdered By: Mick Branch on 11-02-2024 Anion gap [Moles/Vol] 5.8 mmol/L Low 6.0-15.0 [facility] Comment on above: Performed By: #### C MP, CBC, PT #### [address] Sodium [Moles/volume] in Ser um or PlasmaOrdered By: Mick Branch on 11-02-2024 Sodium [Moles/Vol] 141 mmol/L Normal 136-145 [facility] Comment on above: Performed By: #### C MP, CBC, PT #### [address] Urea nitrogen [Mass/volume] in Serum or PlasmaOrdered By: Mick Branch on 11-02-2024 Urea nitrogen [Mass/Vol] 15 mg/dL Normal 7-25 [facility] Comment on above: Performed By: #### C MP, CBC, PT #### [facility] [address] ALL BASIC METABOLIC PANELon 10-01-2024 Anion gap [Moles/Vol] 13.1 mmol/L [facility] Calcium [Mass/Vol] 9 mg/dL 8.5 - 10. 1 mg/dL [facility] Chloride [Moles/Vol] 111 mmol/L High 98 - 10 7 mmol/L [facility] CO2 [Moles/Vol] 26.2 mmol/L 21.0 - 32.0 mmol/L [facility] Creatinine [Mass/Vol] 0.89 mg/dL 0.70 - 1.30 mg/dL [facility] GFR/1.73 sq M.predicted CKD-EPI (S/P/Bld) [Vol rate/Area] >60 >=60 mL/min/1.7 3m 2 [facility] Glucose [Mass/Vol] 106 mg/dL 74 - 106 mg/dL [facility] Potassium [Moles/Vol] 4.3 mmol/L 3.5 - 5.1 mmol/L [facility] Sodium [Moles/Vol] 146 mmol/L High 136 - 145 mmol/L [facility] TBH EGFR-NON AF NEPALESE >60 >=60 mL/min/1.7 3m 2 [facility] Urea nitrogen [Mass/Vol] 17 mg/dL 7.0 - 18.0 mg/dL [facility] Urea nitrogen/Creatinine [Mass ratio] 19.1 mg/mg [facility] ALL LIPID PROFILE (FASTING)o n 10-01-2024 CHOL HDL RATIO 1.9 [facility] Comment on above: 3.3 - 4.4 LOW RISK 4.4 - 7.1 AVERAGE RISK 7.1 - 11.0 MODERATE RISK >11.0 HIGH RISK Cholesterol [Mass/Vol] 113 mg/dL NINF - 200 mg/dL [facility] Cholesterol in HDL [Mass/Vol] 60 mg/dL 40 - 60 mg/dL [facility] Comment on above: > or =60 mg/dl - LOW CARDIOVASCULAR RISK <40 mg/dl - HIGH CARDIOVASCULAR RISK Magnesium [Mass/Vol] 41.4 mg/dL [facility] Comment on above: <100 mg/dl OPTIMAL 100-129 mg/dl NEAR OR ABOVE OPTIMAL 130-159 mg/dl BORDERLINE HIGH 160-189 mg/dl HIGH >190 mg/dl VERY HIGH Magnesium [Mass/Vol] 11.6 mg/dL [facility] Triglyceride [Mass/Vol] 58 mg/dL NINF - 150 mg/dL [facility] Ever 10-01-2024 ALT [Catalytic activity/Vol] 51 U/L 16 - 63 U/L [facility] [place]io 10-01-2024 AST [Catalytic activity/Vol] 46 U/L High 15 - 37 U/L [facility] No Panel Informationon 10-01 Interpretation and review of laboratory results Abnormal [facility] ALL CBC WITH AUTO DIFFon Erythrocyte distribution width (RBC) [Ratio] 13.8 % 11.0 - 15.0 % [facility] Hematocrit (Bld) [Volume fraction] 37.5 % Low 42.0 - 54.0 % [facility] Hemoglobin (Bld) [Mass/Vol] 12.6 g/dL Low 14.0 - 18.0 g/dL [facility] Interpretation and review of laboratory results Abnormal [facility] MCH (RBC) [Entitic mass] 31.2 pg 25.9 - 34.0 pg [facility] MCHC (RBC) [Mass/Vol] 33.6 g/dL 29.9 - 35.2 g/dL [facility] MCV (RBC) [Entitic vol] 92.8 fL 80.0 - 94.0 fL [facility] Platelet mean volume (Bld) [Entitic vol] 10.6 fL 9.5 - 13.5 fL [facility] TB PLT 65 Low [facility] TB RBC 4.04 Low [facility] TB WBC 3.3 Low [facility] 36on 07-09-2024 36 This patient hasn't been seen since 2022 [facility] US abdomen limitedon [address] [facility] [address] [address] Ultrasound Report Signed Patient: Pankaj Payne MR#: [id number] : 1945 Acct:[id number] Age/Sex: 78 / M ADM Date: 05/21/24 Loc: Room: Type: [facility] Attending Dr: Mick Branch MD Ordering Provider: Mick Branch MD Date of Service: 05/21/24 US/US abdomen limited: K74.60 - Unspecified cirrhosis of liver Copies to: Mick rBanch MD LIMITED ABDOMINAL ULTRASOUND: CLINICAL HISTORY: Cirrhosis. [...] Claros Jr., D.O.05/21/2024 10:23 AM Dictation Location: [place] [address] Tech: Lizzy Shraddha Transcribed By: USMAN 05/21/24 1023 Dictated By: Kartik Claros Jr, DO 05/21/24 1022 Signed By: 05/21/24 1023 Normal [facility] AFP Tumor Marker, Serumon AFP Tumor Marker, Serum 2.5 ng/mL Normal 0.0-8.4 [facility] Comment on above: Result Comment: [facility] Electrochemiluminescence Immunoassay (ECLIA) Values obtained with different assay methods or kits cannot be used interchangeably. Results cannot be interpreted as absolute evidence of the presence or absence of malignant disease. This test is not interpretable in females. Performed at: - [facility] [id number] Lathe Mechanic: Charlie Klein PhD, Phone: [phone] PERFORMED BY: [address] [address] PATHOLOGIST PASTRY COOK HELPER LUCIUS IRELAND M.D. Performed By: #### A FPTM #### [facility] , #### PSAS, TSH3 wRFLX, CMP, PT, LIPID #### [address] [place] [address] [facility] Alanine aminotransferase [En zymatic activity/volume] in Serum or PlasmaOrdered By: Mick Branch on 04-30-2024 ALT [Catalytic activity/Vol] Alanine aminotransferase [Enzymatic activity/volume] in Serum or Plasma 7-52 [facility] Albumin [Mass/volume] in Ser um or Plasma by Bromocresol green (BCG) dye binding methoOrdered By: Mick Branch on 04-30-2024 Albumin BCG dye [Mass/Vol] Albumin [Mass/volume] in Serum or Plasma by Bromocresol green (BCG) dye binding metho 3.5-5.7 [facility] Alkaline phosphatase [Enzyma tic activity/volume] in Serum or PlasmaOrdered By: Mick Branch on 04-30-2024 ALP [Catalytic activity/Vol] Alkaline phosphatase [Enzymatic activity/volume] in Serum or Plasma High 34-104 [facility] Aspartate aminotransferase [ Enzymatic activity/volume] in Serum or PlasmaOrdered By: Mick Branch on 04-30-2024 AST [Catalytic activity/Vol] Aspartate aminotransferase [Enzymatic activity/volume] in Serum or Plasma High 13-39 [facility] Bilirubin.total [Mass/volume ] in Serum or PlasmaOrdered By: Mick Branch on 04-30-2024 Bilirubin [Mass/Vol] Bilirubin.total [Mass/volume] in Serum or Plasma 0.3-1.0 [facility] Calcium [Mass/volume] in Ser um or PlasmaOrdered By: Mick Branch on 04-30-2024 Calcium [Mass/Vol] Calcium [Mass/volume ] in Serum or Plasma 8.6-10.3 [facility] Carbon dioxide, total [Moles /volume] in Serum or PlasmaOrdered By: Mick Branch on 04-30-2024 CO2 [Moles/Vol] Carbon dioxide, tota l [Moles/volume] in Serum or Plasma High 21.0-31.0 [facility] Chloride [Moles/volume] in S lilly or PlasmaOrdered By: Mick Branch on 04-30-2024 Chloride [Moles/Vol] Chloride [Moles/vol ume] in Serum or Plasma High 98-107 [facility] Cholesterol [Mass/volume] in Serum or PlasmaOrdered By: Mick Branch on 04-30-2024 Cholesterol [Mass/Vol] Cholesterol [Mass /volume] in Serum or Plasma 140-200 [facility] Comment on above: Chol less than 200 m g/dl low riskChol 201-239 mg/dl borderline riskChol 240 mg/dl and greater high risk Cholesterol in HDL [Mass/vol ume] in Serum or PlasmaOrdered By: Mick Branch on 04-30-2024 Cholesterol in HDL [Mass/Vol] Serum or plasma high density lipoprotein (HDL) cholesterol measurement 23-92 [facility] Comment on above: HDL CHOL ATP-III CLA SSIFICATION Cardiovascular RiskHDL > or equal to 60 mg/dL LOWHDL < 40 mg/dL HIGH Cholesterol in LDL Calc [Mas s/Vol]Ordered By: Mick Branch on 04-30-2024 Cholesterol in LDL [Mass/Vol] Cholesterol in LDL [Mass/volume] in Serum or Plasma by calculation 0-100 [facility] Comment on above: LDL ATP III CLASSIFI CATIONLDL less than 100 mg/dL OptimalLDL 100-129 mg/dL Near or above optimalLDL 130-159 mg/dL Borderline highLDL 160-189 mg/dL HighLDL greater than 189 mg/dL Very high Cholesterol in VLDL Calc [Ma ss/Vol]Ordered By: Mick Branch on 04-30-2024 Cholesterol in VLDL [Mass/Vol] Cholesterol in VLDL [Mass/volume] in Serum or Plasma by calculation [facility] Comprehensive Metabolic Pane ross 04-30-2024 Albumin [Mass/Vol] 3.5 g/dL Normal 3.5-5.7 [facility] Comment on above: Performed By: #### A FPTM #### [facility] , #### PSAS, TSH3 wRFLX, CMP, PT, LIPID #### [address] Albumin/Globulin [Mass ratio] 1.3 {ratio} Normal [facility] Comment on above: Performed By: #### A FPTM #### [facility] , #### PSAS, TSH3 wRFLX, CMP, PT, LIPID #### [address] ALP [Catalytic activity/Vol] 122 U/L High 34-104 [facility] Comment on above: Performed By: #### A FPTM #### [facility] , #### PSAS, TSH3 wRFLX, CMP, PT, LIPID #### [address] ALT [Catalytic activity/Vol] 40 U/L Normal 7-52 [facility] Comment on above: Performed By: #### A FPTM #### [facility] , #### PSAS, TSH3 wRFLX, CMP, PT, LIPID #### [address] Anion gap [Moles/Vol] 4.9 mmol/L Low 6.0-15.0 [facility] Comment on above: Performed By: #### A FPTM #### [facility] , #### PSAS, TSH3 wRFLX, CMP, PT, LIPID #### [address] AST [Catalytic activity/Vol] 46 U/L High 13-39 [facility] Comment on above: Performed By: #### A FPTM #### [facility] , #### PSAS, TSH3 wRFLX, CMP, PT, LIPID #### [address] Bilirubin [Mass/Vol] 0.7 mg/dL Normal 0.3-1.0 [facility] Comment on above: Performed By: #### A FPTM #### [facility] , #### PSAS, TSH3 wRFLX, CMP, PT, LIPID #### [facility] [address] [place] [address] Calcium [Mass/Vol] 8.8 mg/dL Normal 8.6-10.3 [facility] Comment on above: Performed By: #### A FPTM #### [facility] , #### PSAS, TSH3 wRFLX, CMP, PT, LIPID #### [address] Chloride [Moles/Vol] 109 mmol/L High 98-107 [facility] Comment on above: Performed By: #### A FPTM #### [facility] , #### PSAS, TSH3 wRFLX, CMP, PT, LIPID #### [facility] [address] [place] [address] CO2 [Moles/Vol] 31.4 mmol/L High 21.0-31.0 [facility] Comment on above: Performed By: #### A FPTM #### [facility] , #### PSAS, TSH3 wRFLX, CMP, PT, LIPID #### [facility] [address] [place] [address] Creatinine [Mass/Vol] 0.91 mg/dL Normal 0.70-1.30 [facility] Comment on above: Performed By: #### A FPTM #### [facility] , #### PSAS, TSH3 wRFLX, CMP, PT, LIPID #### [address] GFR/1.73 sq M.predicted MDRD (S/P/Bld) [Vol rate/Area] mL/min/{1.73_m2} Normal [facility] Comment on above: Performed By: #### A FPTM #### [facility] , #### PSAS, TSH3 wRFLX, CMP, PT, LIPID #### [facility] [address] [place] [address] Globulin (S) [Mass/Vol] 2.7 g/dL Normal [facility] Comment on above: Performed By: #### A FPTM #### [facility] , #### PSAS, TSH3 wRFLX, CMP, PT, LIPID #### [address] Glucose [Mass/Vol] 82 mg/dL Normal 70-100 [facility] Comment on above: Result Comment: [facility] Glucose Reference Range is dependent on time and content of last meal. Glucose of more than 200 mg/dL in a nonstressed, ambulatory subject supports the diagnosis of Diabetes Mellitus. ADA recommended reference range Performed By: #### A FPTM #### [facility] , #### PSAS, TSH3 wRFLX, CMP, PT, LIPID #### [address] Potassium [Moles/Vol] 4.3 mmol/L Normal 3.5-5.1 [facility] Comment on above: Performed By: #### A FPTM #### [facility] , #### PSAS, TSH3 wRFLX, CMP, PT, LIPID #### [address] Protein [Mass/Vol] 6.2 g/dL Low 6.4-8.9 [facility] Comment on above: Performed By: #### A FPTM #### [facility] , #### PSAS, TSH3 wRFLX, CMP, PT, LIPID #### [place] [address] [place] Sodium [Moles/Vol] 141 mmol/L Normal 136-145 [facility] Comment on above: Performed By: #### A FPTM #### [facility] , #### PSAS, TSH3 wRFLX, CMP, PT, LIPID #### [place] [address] [place] Urea nitrogen [Mass/Vol] 18 mg/dL Normal 7-25 [facility] Comment on above: Performed By: #### A FPTM #### [facility] , #### PSAS, TSH3 wRFLX, CMP, PT, LIPID #### [facility] [address] Creatinine [Mass/volume] in Serum or PlasmaOrdered By: Mick Branch on 04-30-2024 Creatinine [Mass/Vol] Creatinine [Mass/v olume] in Serum or Plasma 0.70-1.30 [facility] Globulin Calc (S) [Mass/Vol] Ordered By: Mick Branch on 04-30-2024 Globulin (S) [Mass/Vol] Serum globulin measurement by calculation (mass/volume) [facility] Glucose [Mass/volume] in Ser um or PlasmaOrdered By: Mick Branch on 04-30-2024 Glucose [Mass/Vol] Glucose [Mass/volume ] in Serum or Plasma 70-100 [facility] Comment on above: ADA recommended refe rence rangeRandom Glucose Reference Range is dependent on time and content of last meal. Glucose of more than 200 mg/dL in a nonstressed, ambulatory subject supports the diagnosis of Diabetes Mellitus. INR in Platelet poor plasma by Coagulation assayOrdered By: Mick Branch on 04-30-2024 INR Coag (PPP) [Relative time] INR in Platelet poor plasma by Coagulation assay [facility] Comment on above: INR Therapeutic Rang e [...] [Mass/Vol] 142 mg/dL Normal 140-200 [facility] Comment on above: Result Comment: Chol less than 200 mg/dl low risk Chol 201-239 mg/dl borderline risk Chol 240 mg/dl and greater high risk Performed By: #### A FPTM #### [facility] , #### PSAS, TSH3 wRFLX, CMP, PT, LIPID #### [facility] [address] Cholesterol in HDL [Mass/Vol] 42 mg/dL Normal 23-92 [facility] Comment on above: Result Comment: HDL CHOL ATP-III CLASSIFICATION Cardiovascular Risk HDL > or equal to 60 mg/dL LOW HDL < 40 mg/dL HIGH Performed By: #### A FPTM #### [facility] , #### PSAS, TSH3 wRFLX, CMP, PT, LIPID #### [address] Cholesterol.total/Chol esterol in HDL [Mass ratio] 3.4 {ratio} Normal <5.0 [facility] Comment on above: Performed By: #### A FPTM #### [facility] , #### PSAS, TSH3 wRFLX, CMP, PT, LIPID #### [address] LDL Cholesterol,Calculated 67 mg/dL Normal 0-100 [facility] Comment on above: Result Comment: LDL ATP III CLASSIFICATION LDL less than 100 mg/dL Optimal LDL 100-129 mg/dL Near or above optimal LDL 130-159 mg/dL Borderline high LDL 160-189 mg/dL High LDL greater than 189 mg/dL Very high Performed By: #### A FPTM #### [facility] , #### PSAS, TSH3 wRFLX, CMP, PT, LIPID #### [place] [address] [place] Triglyceride w/Reflex 166 mg/dL High 0-149 [facility] Comment on above: Result Comment: TRIG ATP III CLASSIFICATION TRIG less than 150 mg/dL Normal TRIG 150-199 mg/dL Borderline high TRIG 200-500 mg/dL High TRIG greater than 500 mg/dL Very high Standard traceable to the Center for Disease Conrtrol and Prevention (CDC) test method. Performed By: #### A FPTM #### [facility] , #### PSAS, TSH3 wRFLX, CMP, PT, LIPID #### [address] VLDL CHOLESTEROL 33 mg/dL Normal [facility] Comment on above: Performed By: #### A FPTM #### [facility] , #### PSAS, TSH3 wRFLX, CMP, PT, LIPID #### [address] No Panel InformationOrdered By: Mick Branch on 04-30-2024 Estimated GFR (CKD-EPI) > 60.0 mL/Min [facility] Creatinine Clearance (Chem N/A [facility] PSA Screen (Yearly Only)on 0 04-30-2024 PSA Screen (Yearly Only) 0.600 ng/mL Normal 0.000-4.00 0 [facility] Comment on above: Result Comment: Seri al tumor marker results determined by assays using different manufacturers or methods may not be comparable. [facility] fructose loader and method: Recovers DXI, CHEMILUMINESCENT IMMUNOASSAY. PERFORMED BY: [place] [address] PATHOLOGIST PASTRY COOK HELPER LUCIUS IRELAND M.D. Performed By: #### A FPTM #### [facility] , #### PSAS, TSH3 wRFLX, CMP, PT, LIPID #### [facility] [address] [place] [address] Potassium [Moles/volume] in Serum or PlasmaOrdered By: Mick Branch on 04-30-2024 Potassium [Moles/Vol] Potassium [Moles/v olume] in Serum or Plasma 3.5-5.1 [facility] Prostate specific Ag [Mass/v olume] in Serum or PlasmaOrdered By: Mick Branch on 04-30-2024 Prostate specific Ag [Mass/Vol] Prostate specific Ag [Mass/volume] in Serum or Plasma 0.000-4.00 0 [facility] Comment on above: Serial tumor marker results determined by assays using different manufacturers or methods may not be comparable.[facility] fructose loader and method:Recovers DXI, CHEMILUMINESCENT IMMUNOASSAY. Protein [Mass/volume] in Ser um or PlasmaOrdered By: Mick Branch on 04-30-2024 Protein [Mass/Vol] Protein [Mass/volume ] in Serum or Plasma Low 6.4-8.9 [facility] Prothrombin Time INRon 04-30 INR Coag (PPP) [Relative time] 1.2 {INR} Normal [facility] Comment on above: Result [...] heart valves: 3 - 4.5 PERFORMED BY: [place] [address] PATHOLOGIST PASTRY COOK HELPER LUCIUS IRELAND M.D. Performed By: #### A FPTM #### [facility] , #### PSAS, TSH3 wRFLX, CMP, PT, LIPID #### [facility] [address] [place], [place] [id number] [facility] PT Coag (PPP) [Time] 13.8 s High 9.0-12.9 [facility] Comment on above: Result Comment: A he matocrit value greater than 55% may lead to inaccurate results in coagulation testing. Patients having hematocrit values >55% require a special collection tube for coagulation studies. Please contact the laboratory at [phone] for redraw instructions. Performed By: #### A FPTM #### [facility] , #### PSAS, TSH3 wRFLX, CMP, PT, LIPID #### [facility] [address] [place] [id number] [facility] Prothrombin time (PT)Ordered By: Mick Branch on 04-30-2024 PT Coag (PPP) [Time] Prothrombin time (PT) High 9.0- 12.9 [facility] Comment on above: A hematocrit value g reater than 55% may lead to inaccurate results in coagulation testing. Patients having hematocrit values >55% require a special collection tube for coagulation studies. Please contact the laboratory at [phone] for redraw instructions. Serum or plasma albumin/glob ulin mass ratioOrdered By: Mick Branch on 04-30-2024 Albumin/Globulin [Mass ratio] Serum or plasma albumin/globulin mass ratio [facility] Serum or plasma [id number] protein tumor marker measurement (mass/volume)Ordered By: Mick Branch on 04-30-2024 AFP.tumor marker [Mass/Vol] Serum or plasma [id number] tumor marker measurement (mass/volume) 0.0-8.4 [facility] Comment on above: [facility] [employer] ectrochemiluminescence Immunoassay(ECLIA)Values obtained with different assay methods or kits cannotbe used interchangeably. Results cannot be interpreted asabsolute evidence of the presence or absence of malignantdisease.This test is not interpretable in females.Performed at: [facility] [id number] Director: Charlie Klein PhD, Phone: [phone] Serum or plasma anion gap de terminationOrdered By: Mick Branch on 04-30-2024 Anion gap [Moles/Vol] Serum or plasma an ion gap determination Low 6.0-15.0 [facility] Serum or plasma total choles terol/high density lipoprotein (HDL) cholesterol mass ratOrdered By: Mick Branch on 04-30-2024 Cholesterol.total/Chol esterol in HDL [Mass ratio] Serum or plasma total cholesterol/high density lipoprotein (HDL) cholesterol mass rat <5.0 [facility] Sodium [Moles/volume] in Ser um or PlasmaOrdered By: Mick Branch on 04-30-2024 Sodium [Moles/Vol] Sodium [Moles/volume ] in Serum or Plasma 136-145 [facility] Thyroid Stim Hormone w/Rflxo n 04-30-2024 Thyroid Stim Hormone w/Rflx 3.07 u[iU]/mL Normal 0.45-5.33 [facility] Comment on above: Result Comment: PERF ORMED BY: [facility] [address] [place] [address] PATHOLOGIST PASTRY COOK HELPER LUCIUS IRELAND M.D. Performed By: #### A FPTM #### [facility] , #### PSAS, TSH3 wRFLX, CMP, PT, LIPID #### [facility] [address] Thyrotropin [Units/volume] i n Serum or PlasmaOrdered By: Mick Branch on 04-30-2024 TSH Qn Thyrotropin [Units/volume] in Serum or Plasma 0.45-5.33 [facility] Triglyceride [Mass/volume] i n Serum or PlasmaOrdered By: Mick Branch on 04-30-2024 Triglyceride [Mass/Vol] Triglyceride [Mass/volume] in Serum or Plasma High 0-149 [facility] Comment on above: TRIG ATP III CLASSIF ICATIONTRIG less than 150 mg/dL NormalTRIG 150-199 mg/dL Borderline highTRIG 200-500 mg/dL High TRIG greater than 500 mg/dL Very highStandard traceable to the Center for Disease Conrtrol and Prevention (CDC) test method. Urea nitrogen [Mass/volume] in Serum or PlasmaOrdered By: Mick Branch on 04-30-2024 Urea nitrogen [Mass/Vol] Urea nitrogen [Mass/volume] in Serum or Plasma 10-16 [facility] ALL CBC WITH AUTO DIFFon Erythrocyte distribution width (RBC) [Ratio] 13.6 % 11.0 - 15.0 % [facility] Hematocrit (Bld) [Volume fraction] 40 % Low 42.0 - 54.0 % [facility] Hemoglobin (Bld) [Mass/Vol] 13 g/dL Low 14.0 - 18.0 g/dL [facility] Interpretation and review of laboratory results Abnormal [facility] MCH (RBC) [Entitic mass] 31.6 pg 25.9 - 34.0 pg [facility] MCHC (RBC) [Mass/Vol] 32.5 g/dL 29.9 - 35.2 g/dL [facility] MCV (RBC) [Entitic vol] 97.1 fL High 80.0 - 94.0 fL [facility] Platelet mean volume (Bld) [Entitic vol] 11.1 fL 9.5 - 13.5 fL [facility] 4[facility]12 Low [facility] WBC 4.9 [facility] ECG 12 Leadon 01-01-2024 Sinus bradycardia, P VC, sinus arrhythmia, anterolateral CO age-indeterminate, abnormal ECG [facility] Work Phone: [facility] Work Phone: ALL CBC WITH AUTO DIFFon Erythrocyte distribution width (RBC) [Ratio] 18.3 % High 11.0 - 15.0 % [facility] Hematocrit (Bld) [Volume fraction] 38.3 % Low 42.0 - 54.0 % [facility] Hemoglobin (Bld) [Mass/Vol] 12.2 g/dL Low 14.0 - 18.0 g/dL [facility] Interpretation and review of laboratory results Abnormal [facility] MCH (RBC) [Entitic mass] 29.5 pg 25.9 - 34.0 pg [facility] MCHC (RBC) [Mass/Vol] 31.9 g/dL 29.9 - 35.2 g/dL [facility] MCV (RBC) [Entitic vol] 92.5 fL 80.0 - 94.0 fL [facility] Platelet mean volume (Bld) [Entitic vol] 11.1 fL 9.5 - 13.5 fL [facility] PLT 63 Low [facility] RBC 4.14 Low [facility] WBC 3.1 Low [facility] No Panel InformationOrdered By: Mick Branch on 10-23-2023 Miscellaneous Pathology Test See comment [facility] Comment on above: See report. Scanned copy available in EMR. Alanine aminotransferase [En zymatic activity/volume] in Serum or PlasmaOrdered By: Mick Branch on 09-17-2023 ALT [Catalytic activity/Vol] 43 U/L 7-52 [facility] Albumin [Mass/volume] in Ser um or Plasma by Bromocresol green (BCG) dye binding methoOrdered By: Mick Branch on 09-17-2023 Albumin BCG dye [Mass/Vol] 3.9 g/dL 3.5-5.7 [facility] Alkaline phosphatase [Enzyma tic activity/volume] in Serum or PlasmaOrdered By: Mick Branch on 09-17-2023 ALP [Catalytic activity/Vol] 138 U/L High 34-104 [facility] Anisocytosis LM Ql (Bld)Orde red By: Mick Branch on 09-17-2023 Anisocytosis Ql (Bld) Slight [facility] Aspartate aminotransferase [ Enzymatic activity/volume] in Serum or PlasmaOrdered By: Mick Branch on 09-17-2023 AST [Catalytic activity/Vol] 49 U/L High 13-39 [facility] Band form neutrophils/100 WB C Manual cnt (Bld)Ordered By: Mick Branch on 09-17-2023 Band form neutrophils/100 WBC (Bld) 1 % 0-5 [facility] Basophils Auto (Bld) [#/Vol] Ordered By: Mick Branch on 09-17-2023 Basophils (Bld) [#/Vol] N/A [facility] Basophils/100 WBC Auto (Bld) Ordered By: Mick Branch on 09-17-2023 Basophils/100 WBC (Bld) N/A [facility] Bilirubin.total [Mass/volume ] in Serum or PlasmaOrdered By: Mick Branch on 09-17-2023 Bilirubin [Mass/Vol] 0.6 mg/dL 0.3-1.0 [facility] Calcium [Mass/volume] in Ser um or PlasmaOrdered By: Mick Branch on 09-17-2023 Calcium [Mass/Vol] 8.8 mg/dL 8.6-10.3 [facility] Carbon dioxide, total [Moles /volume] in Serum or PlasmaOrdered By: Mick Branch on 09-17-2023 CO2 [Moles/Vol] 27.5 mmol/L 21.0-31.[address] [facility] Chloride [Moles/volume] in S lilly or PlasmaOrdered By: Mick Branch on 09-17-2023 Chloride [Moles/Vol] 111 mmol/L High 98-107 [facility] Creatinine [Mass/volume] in Serum or PlasmaOrdered By: Mick Branch on 09-17-2023 Creatinine [Mass/Vol] 0.94 mg/dL 0.70-1.30 [facility] Eosinophils Auto (Bld) [#/Vo l]Ordered By: Mick Branch on 09-17-2023 Eosinophils (Bld) [#/Vol] N/A [facility] Eosinophils/100 WBC Auto (Bl d)Ordered By: Mick Branch on 09-17-2023 Eosinophils/100 WBC (Bld) N/A [facility] Eosinophils/100 WBC Manual c nt (Bld)Ordered By: Mick Branch on 09-17-2023 Eosinophils/100 WBC (Bld) 4 % High 1-3 [facility] Erythrocyte distribution wid th Auto (RBC) [Ratio]Ordered By: Mick Branch on 09-17-2023 Erythrocyte distribution width (RBC) [Ratio] 17.4 % High 12.0-14.8 [facility] Ferritin [Mass/volume] in Se rum or PlasmaOrdered By: Mick Branch on 09-17-2023 Ferritin [Mass/Vol] 23.4 ng/mL Low 23.9-336.2 [facility] Globulin Calc (S) [Mass/Vol] Ordered By: Mick Branch on 09-17-2023 Globulin (S) [Mass/Vol] 2.7 g/dL [facility] Glucose [Mass/volume] in Ser um or PlasmaOrdered By: Mick Branch on 09-17-2023 Glucose [Mass/Vol] 78 mg/dL 70-100 [facility] Comment on above: ADA recommended refe rence rangeRandom Glucose Reference Range is dependent on time and content of last meal. Glucose of more than 200 mg/dL in a nonstressed, ambulatory subject supports the diagnosis of Diabetes Mellitus. Hematocrit Auto (Bld) [Volum e fraction]Ordered By: Mick Branch on 09-17-2023 Hematocrit (Bld) [Volume fraction] 37.4 % Low 38.8-50.0 [facility] Hemoglobin [Mass/volume] in BloodOrdered By: Mick Branch on 09-17-2023 Hemoglobin (Bld) [Mass/Vol] 12.1 g/dL Low 13.0-17.0 [facility] INR in Platelet poor plasma by Coagulation assayOrdered By: Mick Branch on 09-17-2023 INR Coag (PPP) [Relative time] 1.1 {INR} [facility] Comment on above: INR Therapeutic Rang e [...] on 09-17-2023 Iron [Mass/Vol] 52 ug/dL 50-212 [facility] Iron binding capacity [Mass/ volume] in Serum or PlasmaOrdered By: Mick Branch on 09-17-2023 Iron binding capacity [Mass/Vol] 496 ug/dL High 255-450 [facility] Iron saturation [Mass Fracti on] in Serum or PlasmaOrdered By: Mick Branch on 09-17-2023 Iron saturation [Mass fraction] 10.5 % Low 20-50 [facility] Leukocytes [#/volume] correc britt for nucleated erythrocytes in Blood by Automated counOrdered By: Mick Branch on 09-17-2023 WBC corrected for nucl RBC Auto (Bld) [#/Vol] 3.2 10*3/uL Low 4.1-10.5 [facility] Lymphocytes Auto (Bld) [#/Vo l]Ordered By: Mick Branch on 09-17-2023 Lymphocytes (Bld) [#/Vol] N/A [facility] Lymphocytes/100 WBC Auto (Bl d)Ordered By: Mick Branch on 09-17-2023 Lymphocytes/100 WBC (Bld) N/A [facility] Lymphocytes/100 WBC Manual c nt (Bld)Ordered By: Mick Branch on 09-17-2023 Lymphocytes/100 WBC (Bld) 25 % 18-42 [facility] MCH Auto (RBC) [Entitic mass ]Ordered By: Mick Branch on 09-17-2023 MCH (RBC) [Entitic mass] 27.4 pg Low 27.5-35.2 [facility] MCHC Auto (RBC) [Mass/Vol]Or dered By: Mick Branch on 09-17-2023 MCHC (RBC) [Mass/Vol] 32.2 g/dL Low 32.5-35.6 [facility] MCV Auto (RBC) [Entitic vol] Ordered By: Mick Branch on 09-17-2023 MCV (RBC) [Entitic vol] 85.0 fL 83.5-101 [facility] Macrocytes LM Ql (Bld)Ordere d By: Mick Branch on 09-17-2023 Macrocytes Ql (Bld) Slight [facility] Microcytes LM Ql (Bld)Ordere d By: Mick Branch on 09-17-2023 Microcytes Ql (Bld) Slight [facility] Monocytes Auto (Bld) [#/Vol] Ordered By: Mick Branch on 09-17-2023 Monocytes (Bld) [#/Vol] N/A [facility] Monocytes/100 WBC Auto (Bld) Ordered By: Mick Branch on 09-17-2023 Monocytes/100 WBC (Bld) N/A [facility] Monocytes/100 WBC Manual cnt (Bld)Ordered By: Mick Branch on 09-17-2023 Monocytes/100 WBC (Bld) 8 % 2-11 [facility] Neutrophils Auto (Bld) [#/Vo l]Ordered By: Mick Branch on 09-17-2023 Neutrophils (Bld) [#/Vol] N/A [facility] Neutrophils/100 WBC Auto (Bl d)Ordered By: Mick Branch on 09-17-2023 Neutrophils/100 WBC (Bld) N/A [facility] No Panel InformationOrdered By: Mick Branch on 09-17-2023 Estimated GFR (CKD-EPI) > 60.0 mL/Min [facility] Pharmacy Creatinine Clearance (Chem N/A [facility] Nucleated erythrocytes [Pres ence] in Blood by Automated countOrdered By: Mick Branch on 06-25-2024 Nucleated RBC Auto Ql (Bld) N/A [facility] Ovalocyte detectionOrdered B y: Mick Branch on 09-17-2023 Ovalocytes LM Ql (Bld) Slight [facility] Platelet adequacy [Presence] in Blood by Light microscopyOrdered By: Mick Branch on 09-17-2023 Platelets LM Ql (Bld) Decreased Normal [facility] Platelet mean volume Auto (B ld) [Entitic vol]Ordered By: Mick Branch on 09-17-2023 Platelet mean volume (Bld) [Entitic vol] 8.9 fL 6.6-10.1 [facility] Platelet morphology finding [Identifier] in BloodOrdered By: Mick Branch on 09-17-2023 Platelet morphology finding Nom (Bld) Normal Normal [facility] Platelets Auto (Bld) [#/Vol] Ordered By: Mick Branch on 09-17-2023 Platelets (Bld) [#/Vol] 112 10*3/uL Low 150-450 [facility] Poikilocytosis [Presence] in Blood by Light microscopyOrdered By: Mick Branch on 09-17-2023 Poikilocytosis LM Ql (Bld) Slight [facility] Potassium [Moles/volume] in Serum or PlasmaOrdered By: Mick Branch on 09-17-2023 Potassium [Moles/Vol] 4.3 mmol/L 3.5-5.1 [facility] Protein [Mass/volume] in Ser um or PlasmaOrdered By: Mick Branch on 09-17-2023 Protein [Mass/Vol] 6.6 g/dL 6.4-8.9 [facility] Prothrombin time (PT)Ordered By: Mick Branch on 09-17-2023 PT Coag (PPP) [Time] 13.1 s High 9.0-12.9 [facility] Comment on above: A hematocrit value g reater than 55% may lead to inaccurate results in coagulation testing. Patients having hematocrit values >55% require a special collection tube for coagulation studies. Please contact the laboratory at [phone] for redraw instructions. RBC Auto (Bld) [#/Vol]Ordere d By: Mick Branch on 09-17-2023 RBC (Bld) [#/Vol] 4.40 10*6/uL 3.90-5.60 [facility] RBC morphologyOrdered By: Kimberly Branch on 09-17-2023 RBC morphology finding Nom (Bld) N/A [facility] Segmented neutrophils/100 WB C Manual cnt (Bld)Ordered By: Mick Branch on 09-17-2023 Segmented neutrophils/100 WBC (Bld) 63 % 50-70 [facility] Serum or plasma albumin/glob ulin mass ratioOrdered By: Mick Branch on 09-17-2023 Albumin/Globulin [Mass ratio] 1.4 {ratio} [facility] Serum or plasma [id number] protein tumor marker measurement (mass/volume)Ordered By: Mick Branch on 09-17-2023 AFP.tumor marker [Mass/Vol] 3.0 ng/mL 0.0-8.4 [facility] Comment on above: [facility] El ectrochemiluminescence Immunoassay(ECLIA)Values obtained with different assay methods or kits cannotbe used interchangeably. Results cannot be interpreted asabsolute evidence of the presence or absence of malignantdisease.This test is not interpretable in females.Performed at: [facility] [id number] Director: Charlie Klein PhD, Phone: [phone] Serum or plasma anion gap de terminationOrdered By: Mick Branch on 09-17-2023 Anion gap [Moles/Vol] 8.8 mmol/L 6.0-15.0 [facility] Sodium [Moles/volume] in Ser um or PlasmaOrdered By: Mick Branch on 09-17-2023 Sodium [Moles/Vol] 143 mmol/L 136-145 [facility] Transferrin [Mass/volume] in Serum or PlasmaOrdered By: Mick Branch on 09-17-2023 Transferrin [Mass/Vol] 354 mg/dL 203-362 [facility] Urea nitrogen [Mass/volume] in Serum or PlasmaOrdered By: Mick Branch on 09-17-2023 Urea nitrogen [Mass/Vol] 20 mg/dL 10-16 [facility] WBC Auto (Bld) [#/Vol]Ordere d By: Mick Sarina on 09-17-2023 WBC (Bld) [#/Vol] 3.4 10*3/uL Low 4.1-10.5 [facility] ECG 12 Leadon 06-20-2023 Sinus rhythm, rightw stephanie axis, bigeminal PVCs, anteroseptal infarction pattern age indeterminant, abnormal ECG [facility] Work Phone: Albumin [Mass/volume] in Ser um or PlasmaOrdered By: Zoila Castorena on 08-08-2022 Albumin [Mass/Vol] 3.0 g/dL 2.9-4.4 [facility] Folate [Mass/volume] in Seru m or PlasmaOrdered By: Zoila Castorena on 08-08-2022 Folate [Mass/Vol] 40.0 ng/mL >5.9 [facility] Comment on above: Folate reference ran ge: >5.9 ng/mlThe WHO technical consultation on folate and vitamin [id number] has determined that folate concentrations lessthan 4 ng/ml are considered deficient. Haptoglobin [Mass/volume] in Serum or PlasmaOrdered By: Zoila Castorena on 08-08-2022 Haptoglobin [Mass/Vol] 58 mg/dL 44-215 [facility] Lactate dehydrogenase [Enzym atic activity/volume] in Serum or Plasma by Lactate to pyOrdered By: Zoila Castoerna on 08-08-2022 LDH Lactate to pyruvate reaction [Catalytic activity/Vol] 221 U/L 140-271 [facility] No Panel InformationOrdered By: Zoila Castorena on 08-08-2022 Protein Electrophoresis M-Jose Not observed g/dL Not Observed [facility] Protein Electrophoresis Note See comment . [facility] Comment on above: Protein electrophore sis scan will follow via computer,mail, or business analytics intern delivery.Performed at: [address] [id number] Director: Charlie Klein PhD, Phone: [phone] Protein [Mass/volume] in Ser um or PlasmaOrdered By: Zoila Castorena on 08-08-2022 Protein [Mass/Vol] 6.0 g/dL 6.0-8.5 [facility] Serum globulin measurement ( mass/volume)Ordered By: Zoila Castorena on 08-08-2022 Globulin (S) [Mass/Vol] 3.0 g/dL 2.2-3.9 [facility] Serum or plasma albumin/glob ulin mass ratioOrdered By: Zoila Castorena on 08-08-2022 Albumin/Globulin [Mass ratio] 1.0 {ratio} 0.7-1.7 [facility] Serum or plasma alpha 1 glob ulin measurement by electrophoresis (mass/volume)Ordered By: Zoila Castorena on 08-08-2022 Alpha 1 globulin Elph [Mass/Vol] 0.2 g/dL 0.0-0.4 [facility] Serum or plasma alpha 2 glob ulin measurement by electrophoresis (mass/volume)Ordered By: Zoila Castorena on 08-08-2022 Alpha 2 globulin Elph [Mass/Vol] 0.7 g/dL 0.4-1.0 [facility] Serum or plasma beta globuli n measurement by electrophoresis (mass/volume)Ordered By: Zoila Castorena on 08-08-2022 Beta globulin Elph [Mass/Vol] 1.2 g/dL 0.7-1.3 [facility] Serum or plasma gamma globul in measurement by electrophoresis (mass/volume)Ordered By: Zoila Castorena on 08-08-2022 Gamma globulin Elph [Mass/Vol] 1.0 g/dL 0.4-1.8 [facility] Vitamin B12 ser/plasOrdered By: Zoila Castorena on 08-08-2022 Cobalamin (Vitamin B12) [Mass/Vol] 481 pg/mL 180-914 [facility] ECHOCARDIO M/2D COMPLETEon 0 11-08-2021 ECHOCARDIO M/2D COMPLETE Patient: PANKAJ PAYNE Exam Date: 11/08/2021 : 1945 Gender:M Ordering : DR KARL MENON M.D. Admission #: [id number] Family : DR FRANTZ CONLEY M.D. Order #: [id number] CLICK HERE TO VIEW EXAM ECHOCARDIOGRAM REPORT [...] 4.96 mm[Hg] Right Atrium Dictated by: Karl Mneon M.D. on 11/08/2021 at 16:52 Approved by: Karl Menon M.D. on 11/08/2021 at 16:55 Normal [facility] Creatinine and Glomerular fi ltration rate.predicted panel (S/P/Bld)Ordered By: Frantz Conley on 10-10-2021 Creatinine [Mass/Vol] 1.11 mg/dL 0.64-1.27 [facility] Estimated glomerular filtrat ion rate (GFR) non- AmericanOrdered By: Frantz Conley on 10-10-2021 GFR/1.73 sq M.predicted among non-blacks MDRD (S/P/Bld) [Vol rate/Area] > 60 mL/Min [facility] No Panel InformationOrdered By: Frantz Conley on 10-10-2021 Estimated GFR () > 60 mL/Min [facility] Comment on above: GFR estimated refere nce range: According to KDOQI guidelines, <60 ml/min/1.73m2 is sufficient to diagnose a patient with chronic kidney disease. Pharmacy Creatinine Clearance (Chem N/A [facility] Serum or plasma urea nitroge n measurement (mass/volume)Ordered By: Frantz Conley on 10-10-2021 Urea nitrogen [Mass/Vol] 16 mg/dL 12-15 [facility] COVID-19 Positive/NegativeOr dered By: Mick Branch on 09-15-2021 SARS-CoV-2 (COVID-19) N gene GÓMEZ+probe Ql (Resp) Negative Negative [facility] Comment on above: Testing for SARS-CoV -2 by RT-PCR This test was developed and its performance characteristics determined by [employer] and validated at the [facility]. This test has not been FDA cleared [...] Basic Metab w/rfx MGon 08-17 (cont.) Normal [facility] Comment on above: Result Comment: Aver age GFR for 70 or more years old: 75 mL/min/1.73sq m Chronic Kidney Disease: <60 mL/min/1.73sq m Kidney failure: <15 mL/min/1.73sq m eGFR calculated using average adult body mass. Additional eGFR calculator available at: http://www.[facility]/multiple_crcl_2012.htm Performed By: #### C DP, BMPX #### [place] [address] Lathe Mechanic: Tony Yanez MD Anion gap [Moles/Vol] 9 mmol/L Normal 9-17 [facility] Comment on above: Performed By: #### C DP, BMPX #### [place] [address] Lathe Mechanic: Tony Yanez MD Calcium [Mass/Vol] 9.0 mg/dL Normal 8.6-10.4 [facility] Comment on above: Performed By: #### C DP, BMPX #### [address] [address] Lathe Mechanic: Tony Yanez MD Chloride [Moles/Vol] 107 mmol/L Normal 98-[address] [facility] Comment on above: Performed By: #### C DP, BMPX #### [facility] [employer] [address] [place] [address] Lathe Mechanic: Tony Yanez MD CO2 [Moles/Vol] 23 mmol/L Normal 20-31 [facility] Comment on above: Performed By: #### C DP, BMPX #### [address] [address] Lathe Mechanic: Tony Yanez MD Creatinine [Mass/Vol] 0.83 mg/dL Normal 0.70-1.20 [facility] Comment on above: Performed By: #### C DP, BMPX #### [address] [address] Lathe Mechanic: Tony Yanez MD GFR, Amer >60 Normal >60 [facility] Comment on above: Performed By: #### C DP, BMPX #### [address] [address] Lathe Mechanic: Tony Yanez MD GFR,non Amer >60 Normal >[address] [facility] Comment on above: Performed By: #### C DP, BMPX #### [address] [address] Lathe Mechanic: Tony Yanez MD Glucose [Mass/Vol] 91 mg/dL Normal 70-99 [facility] Comment on above: Performed By: #### C DP, BMPX #### [address] [address] Lathe Mechanic: Tony Yanez MD Potassium [Moles/Vol] 4.3 mmol/L Normal 3.7-5.3 [facility] Comment on above: Performed By: #### C DP, BMPX #### [address] [address] Lathe Mechanic: Tony Yanez MD Sodium [Moles/Vol] 139 mmol/L Normal 135-144 [facility] Comment on above: Performed By: #### C DP, BMPX #### [address] [address] Lathe Mechanic: Tony Yanez MD Urea nitrogen [Mass/Vol] 17 mg/dL Normal 8-23 [facility] Comment on above: Performed By: #### C DP, BMPX #### [facility] [address] [place] [address] Lathe Mechanic: Tony Yanez MD Basic Metabolic Panel w/ Ref nehemias to MGon 08-17-2021 Anion gap [Moles/Vol] 9 mmol/L 9 - 17 mmol/L [facility] Calcium [Mass/Vol] 9.0 mg/dL 8.6 - 10. 4 mg/dL [facility] Chloride [Moles/Vol] 107 mmol/L 98 - 10 7 mmol/L [facility] CO2 [Moles/Vol] 23 mmol/L 20 - 31 mmol/L [facility] Creatinine [Mass/Vol] 0.83 mg/dL 0.70 - 1.20 mg/dL [facility] GFR >60 >60 mL/min [facility] GFR Non- >60 >60 mL/min [facility] GFR/1.73 sq M.predicted MDRD (S/P/Bld) [Vol rate/Area] [facility] Comment on above: Average GFR for 70 o r more years old: 75 mL/min/1.73sq m Chronic Kidney Disease: <60 mL/min/1.73sq m Kidney failure: <15 mL/min/1.73sq m eGFR calculated using average adult body mass. Additional eGFR calculator available at: http://www.[employer]/multiple_crcl_2012.htm Glucose [Mass/Vol] 91 mg/dL 70 - 99 mg/dL [facility] Potassium [Moles/Vol] 4.3 mmol/L 3.7 - 5.3 mmol/L [facility] Sodium [Moles/Vol] 139 mmol/L 135 - 144 mmol/L [facility] Urea nitrogen (BldV) [Mass/Vol] 17 mg/dL 8 - 23 mg/dL [facility] CBC with Auto Differentialon 08-17-2021 Absolute Eos # 0.11 [facility] Absolute Immature Granulocyte <0.03 [facility] Absolute Lymph # 1.10 [facility] Absolute [place] # 0.53 [facility] Basophils (Bld) [#/Vol] 0.03 10*3/uL [facility] Basophils/100 WBC (Bld) 1 % 0 - 2 % [facility] Eosinophils/100 WBC (Bld) 2 % 1 - 4 % [facility] Hematocrit (Bld) [Volume fraction] 36.2 % Low 40.7 - 50.3 % [facility] Hemoglobin.gastrointes tinal spec 1 Ql (Stl) 12.1 g/dL Low 13.0 - 17.0 g/dL [facility] Immature granulocytes/100 WBC (Bld) 0 % 0 [facility] Interpretation and review of laboratory results Abnormal [facility] Lymphocytes/100 WBC (Bld) 22 % Low 24 - 43 % [facility] MCH (RBC) [Entitic mass] 31.1 pg 25.2 - 33.5 pg [facility] MCHC (RBC) [Mass/Vol] 33.4 g/dL 28.4 - 34.8 g/dL [facility] MCV (RBC) [Entitic vol] 93.1 fL 82.6 - 102.9 fL [facility] Monocytes/100 WBC (Bld) 11 % 3 - 12 % [facility] NRBC Automated 0.0 0.0 per 100 WBC [facility] Platelet distribution width (Bld) [Ratio] 13.2 % 11.8 - 14.4 % [facility] Platelet mean volume (Bld) [Entitic vol] 11.2 fL 8.1 - 13.5 fL [facility] Platelets (Bld) [#/Vol] 94 10*3/uL Low [facility] RBC (Bld) [#/Vol] 3.89 10*6/uL Low 4.21 - 5.77 m/uL [facility] Segmented neutrophils/100 WBC (Bld) 64 % 36 - 65 % [facility] Segs Absolute 3.14 [facility] WBC (Bld) [#/Vol] 4.9 10*3/uL [facility] CBC with Diffon 08-17-2021 Abs. Basophil 0.03 k/uL Normal 0.00-0.20 [facility] Comment on above: Performed By: #### C DP, BMPX #### [place] [address] Lathe Mechanic: Tony Yanez MD Abs.Imm.Granulocyte <0.03 Normal 0.00-0.30 [facility] Comment on above: Performed By: #### C DP, BMPX #### [place] [address] Lathe Mechanic: Tony Yanez MD Abs.Neutrophil (Seg) 3.14 k/uL Normal 1.50-8.[address] [facility] Comment on above: Performed By: #### C DP, BMPX #### [place] [address] Lathe Mechanic: Tony Yanez MD Basophils/100 WBC (Bld) 1 % Normal 0-2 [facility] Comment on above: Performed By: #### C DP, BMPX #### [address] [address] Lathe Mechanic: Tony Yanez MD Eosinophils (Bld) [#/Vol] 0.11 10*3/uL Normal 0.00-0.44 [facility] Comment on above: Performed By: #### C DP, BMPX #### [address] [address] Lathe Mechanic: Tony Yanez MD Eosinophils/100 WBC (Bld) 2 % Normal 1-4 [facility] Comment on above: Performed By: #### C DP, BMPX #### [facility] [employer] [address] [place] [address] Lathe Mechanic: Tony Yanez MD Erythrocyte distribution width (RBC) [Ratio] 13.2 % Normal 11.8-14.4 [facility] Comment on above: Performed By: #### C DP, BMPX #### [address] [address] Lathe Mechanic: Tony Yanez MD Hematocrit (Bld) [Volume fraction] 36.2 % Low 40.7-50.3 [facility] Comment on above: Performed By: #### C DP, BMPX #### [address] [address] Lathe Mechanic: Tony Yanez MD Hemoglobin (Bld) [Mass/Vol] 12.1 g/dL Low 13.0-17.0 [facility] Comment on above: Performed By: #### C DP, BMPX #### [address] [address] Lathe Mechanic: Tony Yanez MD Immature granulocytes/100 WBC (Bld) 0 % Normal 0 [facility] Comment on above: Performed By: #### C DP, BMPX #### [facility] [employer] [address] [place] [address] Lathe Mechanic: Tony Yanez MD Lymphocytes (Bld) [#/Vol] 1.10 10*3/uL Normal 1.10-3.70 [facility] Comment on above: Performed By: #### C DP, BMPX #### [facility] [employer] [address] [place] [address] Lathe Mechanic: Tony Yanez MD Lymphocytes/100 WBC (Bld) 22 % Low 24-43 [facility] Comment on above: Performed By: #### C DP, BMPX #### [facility] [employer] [address] [place] [address] Lathe Mechanic: Tony Yanez MD MCH (RBC) [Entitic mass] 31.1 pg Normal 25.2-33.5 [facility] Comment on above: Performed By: #### C DP, BMPX #### [address] [address] Lathe Mechanic: Tony Yanez MD MCHC (RBC) [Mass/Vol] 33.4 g/dL Normal 28.4-34.8 [facility] Comment on above: Performed By: #### C DP, BMPX #### [address] [address] Lathe Mechanic: Tony Yanez MD MCV (RBC) [Entitic vol] 93.1 fL Normal 82.6-102.9 [facility] Comment on above: Performed By: #### C DP, BMPX #### [address] [address] Lathe Mechanic: Tony Yanez MD Monocytes (Bld) [#/Vol] 0.53 10*3/uL Normal 0.10-1.20 [facility] Comment on above: Performed By: #### C DP, BMPX #### [address] [address] Lathe Mechanic: Tony Yanez MD Monocytes/100 WBC (Bld) 11 % Normal 3-12 [facility] Comment on above: Performed By: #### C DP, BMPX #### [address] [address] Lathe Mechanic: Tony Yanez MD Neutrophil (Seg) 64 % Normal 36-65 [facility] Comment on above: Performed By: #### C DP, BMPX #### [address] [address] Lathe Mechanic: Tony Yanez MD NRBC Automated 0.0 per 100 WBC Normal 0.0 [facility] Comment on above: Performed By: #### C DP, BMPX #### [address] [address] Lathe Mechanic: Tony Yanez MD Platelet mean volume (Bld) [Entitic vol] 11.2 fL Normal 8.1-13.5 [facility] Comment on above: Performed By: #### C DP, BMPX #### [address] [address] Lathe Mechanic: Tony Yanez MD Platelets (Bld) [#/Vol] 94 10*3/uL Low 138-453 [facility] Comment on above: Performed By: #### C DP, BMPX #### [address] [address] Lathe Mechanic: Tony Yanez MD RBC (Bld) [#/Vol] 3.89 10*6/uL Low 4.21-5.77 [facility] Comment on above: Performed By: #### C DP, BMPX #### [address] [address] Lathe Mechanic: Tony Yanez MD WBC (Bld) [#/Vol] 4.9 10*3/uL Normal 3.5-11.3 [facility] Comment on above: Performed By: #### C DP, BMPX #### [address] [address] Lathe Mechanic: Tony Yanez MD CT FACIAL BONES WO [...] SYSTEM PROVIDED HISTORY: Impact with object riding appeals writer TECHNOLOGIST PROVIDED HISTORY: Impact with object riding appeals writer Decision Support Exception - unselect if not [...] Augustin Hodges MD 08/16/21 Final result Normal [facility] MRSA DNA Probe, Nasalon - MRSA, DNA, Nasal Negative NEGATIVE [facility] Comment on above: NEGATIVE: MRSA DNA n ot detected by nucleic acid amplification. Results should be used as an adjunct to nosocomial control efforts to identify patients needing enhanced precautions. The test is not intended to identify patients with staphylococcal infections. Results should not be used to guide or monitor treatment for MRSA infections. Specimen Description .NASAL SWAB [facility] MRSA, DNA, Nasalon MRSA, DNA, Nasal Negative Normal NEG [facility] Comment on above: Result Comment: NEGA TIVE: MRSA DNA not detected by nucleic acid amplification. Results should be used as an adjunct to nosocomial control efforts to identify patients needing enhanced precautions. The test is not intended to identify patients with staphylococcal infections. Results should not be used to guide or monitor treatment for MRSA infections. Performed By: #### M RSANO #### [facility] [employer] [address] [place] [address] Lathe Mechanic: Tony Yanez MD Specimen Description .NASAL SWAB Normal [facility] Comment on above: Performed By: #### M RSANO #### [facility] [address] [place] [address] Lathe Mechanic: Tony Yanez MD CBC AUTO DIFFon 08-16-2021 BASO # 0.0 103/ul Normal 0.0-0.1 [facility] Comment on above: Performed By: #### C VDTBH #### [facility] [address] [place] [address] Dr. Natalya Arthur Basophils/100 WBC (Bld) 0.6 % Normal 0.2-2.0 [facility] Comment on above: Performed By: #### C VDTBH #### [facility] [address] [place] [address] Dr. Natalya Arthur EO # 0.1 103/ul Normal 0.0-0.7 [facility] Comment on above: Performed By: #### C VDTBH #### [facility] [address] [place] [address] Dr. Natalya Arthur Eosinophils/100 WBC (Bld) 1.9 % Normal 0.9-7.0 [facility] Comment on above: Performed By: #### C VDTBH #### [facility] [address] [place] [address] Dr. Natalya Arthur Erythrocyte distribution width (RBC) [Ratio] 13.1 % Normal 11.0-15.0 [facility] Comment on above: Performed By: #### C VDTBH #### [facility] [address] [place] [address] Dr. Natalya Arthur Hematocrit (Bld) [Volume fraction] 38.5 % Critically low 42.0-54.0 [facility] Comment on above: Performed By: #### C VDTBH #### [facility] [address] [place] [address] Dr. Natalya Arthur Hemoglobin (Bld) [Mass/Vol] 12.7 g/dL Critically low 14.0-18.0 [facility] Comment on above: Performed By: #### C VDTBH #### [facility] [address] [address] [address] Natalya Arthur IG # 0.03 10e3/ul Normal 0.00-0.03 [facility] Comment on above: Performed By: #### C VDTBH #### [facility] [address] [place] [address] Dr. Natalya Arthur IG % 0.6 % Critically high 0.0-0.5 [facility] Comment on above: Performed By: #### C VDTBH #### [facility] [address] [place] [address] Dr. Natalya Arthur LYMPH # 0.8 103/ul Critically low 1.2-3.8 [facility] Comment on above: Performed By: #### C VDTBH #### [facility] [address] [place] [address] Dr. Natalya Arthur Lymphocytes/100 WBC (Bld) 15.3 % Critically low 20.5-60.0 [facility] Comment on above: Performed By: #### C VDTBH #### [facility] [address] [place] [address] Dr. Natalya Arthur MANUAL DIFF REQ NO Normal [facility] Comment on above: Performed By: #### C VDTBH #### [facility] [address] [place] [address] Dr. Natalya Arthur MCH (RBC) [Entitic mass] 31.0 pg Normal 25.9-34.0 [facility] Comment on above: Performed By: #### C VDTBH #### [facility] [address] [place] [address] Dr. Natalya Arthur MCHC (RBC) [Mass/Vol] 33.0 g/dL Normal 29.9-35.2 [facility] Comment on above: Performed By: #### C VDTBH #### [facility] [address] [place] [address] Dr. Natalya Arthur MCV (RBC) [Entitic vol] 93.9 fL Normal 80.0-94.0 [facility] Comment on above: Performed By: #### C VDTB #### [facility] [address] [address] [address] Natalya Arthur MONO # 0.4 103/ul Normal 0.3-0.8 [facility] Comment on above: Performed By: #### C VDTBH #### [facility] [address] [address] [address] Natalya Arthur Monocytes/100 WBC (Bld) 8.0 % Normal 1.7-12.0 [facility] Comment on above: Performed By: #### C VDTBH #### [facility] [address] [place] [address] Dr. Natalya Arthur NEUT # 3.8 103/ul Normal 1.4-6.5 [facility] Comment on above: Performed By: #### C VDTBH #### [facility] [address] [place] [address] Dr. Natalya Arthur Neutrophils/100 WBC (Bld) 73.6 % Normal 43.0-75.0 [facility] Comment on above: Performed By: #### C VDTB #### [facility] [address] [place] [address] Dr. Natalya Arthur Platelet mean volume (Bld) [Entitic vol] 10.8 fL Normal 9.5-13.5 [facility] Comment on above: Performed By: #### C VDTBH #### [facility] [address] [place] [address] Dr. Natalya Arthur PLT 100 103/ul Critically low 150-450 [facility] Comment on above: Performed By: #### C VDTBH #### [facility] [address] [place] [address] Dr. Natalya Arthur RBC 4.10 106/ul Critically low 4.70-6.10 [facility] Comment on above: Performed By: #### C VDTBH #### [facility] [address] [place] [address] Dr. Natalya Arthur WBC 5.2 103/ul Normal 4.0-11.0 [facility] Comment on above: Performed By: #### C VDTBH #### [facility] [address] [address] [address] CSPINE WO CONon [...] ARTHUR LÓPEZ Date: 2021-08-16 17:00 Normal [facility] CT FACIAL BONES WO CONTRASTo n 08-16-2021 [...] SYSTEM PROVIDED HISTORY: Impact with object riding appeals writer TECHNOLOGIST PROVIDED HISTORY: Impact with object riding appeals writer Decision Support Exception - unselect if not [...] focus of subcutaneous emphysema left periorbital region. [facility] Augustin Potter MD - 08/16/2021 EXAMINATION: CT [...] SYSTEM PROVIDED HISTORY: Impact with object riding appeals writer TECHNOLOGIST PROVIDED HISTORY: Impact with object riding appeals writer Decision Support Exception - unselect if not [...] ecchymosis of the left face and scalp. [employer] Work Phone: CT FACIAL BONES WO CONTRASTO rdered By: Augustin Hodges on 08-16-2021 IEV Phone: CT HEAD WO CONon 08-16-2021 CT [...] by: SUKH CROFT Date: 2021-08-16 15:37 Normal [facility] CT HEAD WO CONTRASTon 2021 CT HEAD [...] Hardeep Godwin MD 08/16/21 Final result Normal [facility] Minimal left frontal subarachnoid hemorrhage in 1 of the sulci. No evidence of extra-axial collections. Prominent left frontal and parietal scalp swelling/hemorrhage. The findings were sent to the Radiology Results Communication Center at 9:22 pm on 08/16/2021 to be communicated to a licensed caregiver. [facility] CONSOLIDATED EXAMINATION: CT OF THE HEAD WITHOUT [...] TISSUES/SKULL: There is left frontoparietal scalp swelling/hemorrhage. [facility] Hardeep Hurley MD - 08/16/2021 EXAMINATION: CT [...] to be communicated to a licensed caregiver. [employer] Work Phone: CT HEAD WO CONTRASTOrdered B y: Hardeep Godwin on 08-16-2021 [facility] [employer] Work Phone: Covid-19 PCR (CVDTBH)on 07-24 SARS-CoV-2 (COVID-19) RNA GÓMEZ+probe Ql (Unsp spec) Not detected Normal NOT DETECTED [facility] Comment on above: Result Comment: This test is not yet approved or cleared by the [place] FDA. When there are no FDA-approved or cleared tests available, and other criteria are met, FDA can make tests available under an emergency access mechanism called an Emergency Use Authorization (EUA). The EUA for this test is supported by the Licensing Engineer of Health and Human Service's (HHS's) declaration [...] SARS-CoV-2. Performed By: #### C VDTBH #### [facility] [address] [place] [address] Dr. Natalya Arthur No Panel Informationon 08-16 Radiology Study observation (narrative) [facility] [employer] Work Phone: PROF CHEM 8 (BAS METB)on Anion gap [Moles/Vol] 13.6 mmol/L Normal [facility] Comment on above: Performed By: #### C VDTBH #### [facility] [address] [place] [address] Dr. Natalya Arthur Calcium [Mass/Vol] 9.0 mg/dL Normal 8.5-10.1 [facility] Comment on above: Performed By: #### C VDTBH #### [facility] [address] [place] [address] Dr. Natalya Arthur Chloride [Moles/Vol] 107 mmol/L Normal 98-107 [facility] Comment on above: Performed By: #### C VDTBH #### [facility] [address] [place] [address] Dr. Natalya Arthur CO2 [Moles/Vol] 24.4 mmol/L Normal 21.0-32.0 [facility] Comment on above: Performed By: #### C VDTBH #### [facility] [address] [place] [address] Dr. Natalya Arthur Creatinine [Mass/Vol] 1.09 mg/dL Normal 0.70-1.30 [facility] Comment on above: Performed By: #### C VDTBH #### [facility] [address] [address] [address] Natalya Arthur EGFR-AF NEPALESE >60 Normal >=60 [facility] Comment on above: Performed By: #### C VDTBH #### [facility] [address] [address] [address] Natalya Arthur EGFR-NON AF NEPALESE >60 Normal >=60 [facility] Comment on above: Performed By: #### C VDTBH #### [facility] [address] [address] [address] Natalya Arthur Glucose [Mass/Vol] 111 mg/dL Critically high 74-106 [facility] Comment on above: Performed By: #### C VDTBH #### [facility] [address] [place] [address] Dr. Natalya Arthur Potassium [Moles/Vol] 4.0 mmol/L Normal 3.5-5.1 [facility] Comment on above: Performed By: #### C VDTBH #### [facility] [address] [address] [address] Natalya Arthur Sodium [Moles/Vol] 141 mmol/L Normal 136-145 [facility] Comment on above: Performed By: #### C VDTBH #### [facility] [address] [place] [address] Dr. Natalya Arthur Urea nitrogen [Mass/Vol] 21.0 mg/dL Critically high 7.0-18.0 [facility] Comment on above: Performed By: #### C VDTBH #### [facility] [address] [place] [address] Dr. Natalya Arthur Urea nitrogen/Creatinine [Mass ratio] 19.3 mg/mg Normal [facility] Comment on above: Performed By: #### C VDTBH #### [facility] [address] [place] [address] Dr. Natalya Arthur PROTIMEon 08-16-2021 INR Coag (PPP) [Relative time] 1.12 {INR} Normal [facility] Comment on above: Performed By: #### F ETIBC, FERR #### [facility] [address] [place] [address] Dr. Natalya Arthur INR GUIDELINES SEE BELOW Normal [facility] Comment on above: Result Comment: REFUGIO RED INR: 2.0 - 3.0 CONDITIONS NOT LISTED BELOW 2.5 - 3.5 FOR PROSTHETIC HEART VALVE REPLACEMENT 2.5 - 3.5 RECURRENT THROMBOSIS Performed By: #### F ETIBC, FERR #### [facility] [address] [place] [address] Dr. Natalya Arthur PT Coag (PPP) [Time] 12.0 s Critically high 9.0-11.6 [facility] Comment on above: Performed By: #### F ETIBC, FERR #### [facility] [address] [place] [address] Dr. Natalya Arthur PTTon 08-16-2021 aPTT Coag (Bld) [Time] 28.6 s Normal 22.3-36.2 [facility] Comment on above: Performed By: #### F ETIBC, FERR #### [facility] [address] [place] [address] Dr. Natalya Arthur [id number] 2021 Bihrk-2-Bdrrwscccoh, Serum 125 mg/dL Normal 101-187 [facility] Comment on above: Performed By: #### A LPHA-1 #### [facility] [address] [place] [address] Dr. Natalya Arthur BETHANIE EIA W/REFLEX 5 BIOMARKER Son 07-13-2021 BETHANIE Direct Negative Normal Negative [facility] Comment on above: Performed By: #### C VDTBH #### [facility] [address] [place] [address] Dr. Natalya Arthur CERULOPLASMINon 07-13-2021 Ceruloplasmin 19.0 mg/dL Normal 16.0-31.0 [facility] Comment on above: Performed By: #### C EUROPL #### [facility] [address] [place] [address] Dr. Natalya Arthur SMOOTH MUSCLE ANTIBODYon 04- 21-2022 Actin (Smooth Muscle) Antibody 25 Units Critically high 0-19 [facility] Comment on above: Result Comment: Nega tive 0 - 19 Weak positive 20 - 30 Moderate to strong positive >30 . Actin Antibodies are found in 52-85% of patients with autoimmune hepatitis or chronic active hepatitis and in 22% of patients with primary biliary cirrhosis. Performed By: #### C VDTBH #### [facility] [address] [place] [address] Dr. Natalya Arhtur CBC AUTO DIFFon 07-12-2021 BASO # 0.0 103/ul Normal 0.0-0.1 [facility] Comment on above: Performed By: #### F ETIBC, FERR #### [facility] [address] [place] [address] Dr. Natalya Arthur Basophils/100 WBC (Bld) 0.4 % Normal 0.2-2.0 [facility] Comment on above: Performed By: #### F ETIBC, FERR #### [facility] [address] [place] [address] Dr. Natalya Arthur EO # 0.2 103/ul Normal 0.0-0.7 [facility] Comment on above: Performed By: #### F ETIBC, FERR #### [facility] [address] [place] [address] Dr. Natalya Arthur Eosinophils/100 WBC (Bld) 4.0 % Normal 0.9-7.0 [facility] Comment on above: Performed By: #### F ETIBC, FERR #### [facility] [address] [place] [address] Dr. Natalya Arthur Erythrocyte distribution width (RBC) [Ratio] 13.8 % Normal 11.0-15.0 [facility] Comment on above: Performed By: #### F ETIBC, FERR #### [facility] [address] [place] [address] Dr. Natalya Arthur Hematocrit (Bld) [Volume fraction] 41.5 % Critically low 42.0-54.0 [facility] Comment on above: Performed By: #### F ETIBC, FERR #### [facility] [address] [place] [address] Dr. Natalya Arthur Hemoglobin (Bld) [Mass/Vol] 13.2 g/dL Critically low 14.0-18.0 [facility] Comment on above: Performed By: #### F ETIBC, FERR #### [facility] [address] [place] [address] Dr. Natalya Arthur IG # 0.02 10e3/ul Normal 0.00-0.03 [facility] Comment on above: Performed By: #### F ETIBC, FERR #### [facility] [address] [place] [address] Dr. Natalya Arthur IG % 0.4 % Normal 0.0-0.5 [facility] Comment on above: Performed By: #### F ETIBC, FERR #### [facility] [address] [place] [address] Dr. Natalya Arthur LYMPH # 0.8 103/ul Critically low 1.2-3.8 [facility] Comment on above: Performed By: #### F ETIBC, FERR #### [facility] [address] [place] [address] Dr. Natalya Arthur Lymphocytes/100 WBC (Bld) 17.0 % Critically low 20.5-60.0 [facility] Comment on above: Performed By: #### F ETIBC, FERR #### [facility] [address] [place] [address] Dr. Natalya Arthur MANUAL DIFF REQ NO Normal [facility] Comment on above: Performed By: #### F ETIBC, FERR #### [facility] [address] [place] [address] Dr. Natalya Arthur MCH (RBC) [Entitic mass] 30.9 pg Normal 25.9-34.0 [facility] Comment on above: Performed By: #### F ETIBC, FERR #### [facility] [address] [place] [address] Dr. Natalya Arthur MCHC (RBC) [Mass/Vol] 31.8 g/dL Normal 29.9-35.2 [facility] Comment on above: Performed By: #### F ETIBC, FERR #### [facility] [address] [place] [address] Dr. Natalya Arthur MCV (RBC) [Entitic vol] 97.2 fL Critically high 80.0-94.0 [facility] Comment on above: Performed By: #### F ETIBC, FERR #### [facility] [address] [place] [address] Dr. Natalya Arthur MONO # 0.5 103/ul Normal 0.3-0.8 [facility] Comment on above: Performed By: #### F ETIBC, FERR #### [facility] [address] [place] [address] Dr. Natalya Arthur Monocytes/100 WBC (Bld) 10.5 % Normal 1.7-12.0 [facility] Comment on above: Performed By: #### F ETIBC, FERR #### [facility] [address] [place] [address] Dr. Natalya Arthur NEUT # 3.2 103/ul Normal 1.4-6.5 [facility] Comment on above: Performed By: #### F ETIBC, FERR #### [facility] [address] [place] [address] Dr. Natalya Arthur Neutrophils/100 WBC (Bld) 67.7 % Normal 43.0-75.0 [facility] Comment on above: Performed By: #### F ETIBC, FERR #### [facility] [address] [place] [address] Dr. Natalya Arthur Platelet mean volume (Bld) [Entitic vol] 10.7 fL Normal 9.5-13.5 [facility] Comment on above: Performed By: #### F ETIBC, FERR #### [facility] [address] [place] [address] Dr. Natalya Arthur PLT 106 103/ul Critically low 150-450 [facility] Comment on above: Result Comment: smea r reviewed Performed By: #### F ETIBC, FERR #### [facility] [address] [place] [address] Dr. Natalya Atrhur RBC 4.27 106/ul Critically low 4.70-6.10 [facility] Comment on above: Performed By: #### F ETIBC, FERR #### [facility] [address] [address] [address] Natalya Arthur WBC 4.8 103/ul Normal 4.0-11.0 [facility] Comment on above: Performed By: #### F ETIBC, FERR #### [facility] [address] [place] [address] Dr. Natalya Arthur FERRITINon 07-12-2021 Ferritin [Mass/Vol] 94.0 ng/mL Normal 17.9-464.0 [facility] Comment on above: Performed By: #### F ETIBC, FERR #### [facility] [address] [place] [address] Dr. Natalya Arthur IRON AND TIBCon 07-12-2021 % SATURATION 26.8 % Normal [facility] Comment on above: Performed By: #### F ETIBC, FERR #### [facility] [address] [place] [address] Dr. Natalya Arthur Iron [Mass/Vol] 106.0 ug/dL Normal 49.0-181.0 [facility] Comment on above: Performed By: #### F ETIBC, FERR #### [facility] [address] [place] [address] Dr. Natalya Arthur TIBC DIRECT 395.0 ug/dL Normal 261.0-497. 0 [facility] Comment on above: Performed By: #### F ETIBC, FERR #### [facility] [address] [place] [id number] Dr. Natalya Arthur LIPID PROFILEon 07-12-2021 CHOL-HDL RATIO NORM SEE BELOW Normal [facility] Comment on above: Result Comment: 3.3 - 4.4 LOW RISK 4.4 - 7.1 AVERAGE RISK 7.1 - 11.0 MODERATE RISK >11.0 HIGH RISK Performed By: #### L IVER, LIPID #### [facility] [address] [place] [address] Dr. Natalya Arthur Cholesterol [Mass/Vol] 139 mg/dL Normal <=200 [facility] Comment on above: Performed By: #### L IVER, LIPID #### [facility] [address] [address] [address] Natalya Arthur Cholesterol in HDL [Mass/Vol] 58 mg/dL Normal 40-60 [facility] Comment on above: Performed By: #### L IVER, LIPID #### [facility] [address] [address] [address] Natalya Arthur Cholesterol in LDL [Mass/Vol] 58.8 mg/dL Normal [facility] Comment on above: Performed By: #### L IVER, LIPID #### [facility] [address] [place] [address] Dr. Natalya Arthur Cholesterol.total/Chol esterol in HDL [Mass ratio] 2.4 {ratio} Normal [facility] Comment on above: Performed By: #### L IVER, LIPID #### [facility] [address] [place] [address] Dr. Natalya Arthur HDL NORMAL > or = 60 mg/dl - LO W CARDIOVASCULAR RISK <40 mg/dl - HIGH CARDIOVASCULAR RISK Normal [facility] Comment on above: Performed By: #### L IVER, LIPID #### [facility] [address] [place] [address] Dr. Natalya Arthur LDL CALC NORMAL SEE BELOW Normal [facility] Comment on above: Result Comment: <100 mg/dl OPTIMAL 100 - 129 mg/dl NEAR OR ABOVE OPTIMAL 130 - 159 mg/dl BORDERLINE HIGH 160 - 189 mg/dl HIGH >190 mg/dl VERY HIGH Performed By: #### L IVER, LIPID #### [facility] [address] [place] [address] Dr. Natalya Arthur Triglyceride [Mass/Vol] 111 mg/dL Normal <=150 [facility] Comment on above: Performed By: #### L IVER, LIPID #### [facility] [address] [place] [address] Dr. Natalya Arthur VLDL CALC 22.2 mg/dL Normal [facility] Comment on above: Performed By: #### L IVER, LIPID #### [facility] [address] [place] [address] Dr. Natalya Arthur LIVER PROFILEon 04-20-2022 Albumin [Mass/Vol] 3.4 g/dL Normal 3.4-5.0 [facility] Comment on above: Performed By: #### L IVGAVIN, LIPID #### [facility] [address] [address] [address] Natalya Arthur Albumin/Globulin [Mass ratio] 0.9 {ratio} Normal [facility] Comment on above: Performed By: #### L IVGAVIN, LIPID #### [facility] [address] [address] [address] Natalya Arthur ALP [Catalytic activity/Vol] 129 U/L Critically high 46-116 [facility] Comment on above: Performed By: #### L IVGAVIN, LIPID #### [facility] [address] [address] [address] Natalya Arthur ALT [Catalytic activity/Vol] 72 U/L Critically high 16-63 [facility] Comment on above: Performed By: #### L FATOU, LIPID #### [facility] [address] [address] [address] Natalya Arthur AST [Catalytic activity/Vol] 57 U/L Critically high 15-37 [facility] Comment on above: Performed By: #### L FATOU, LIPID #### [facility] [address] [place] [address] Dr. Natalya Arthur BILI, CONJUGATED 0.2 mg/dL Normal 0.0-0.3 [facility] Comment on above: Performed By: #### L IVGAVIN, LIPID #### [facility] [address] [address] [address] Natalya Arthur Bilirubin [Mass/Vol] 0.6 mg/dL Normal 0.2-1.3 [facility] Comment on above: Performed By: #### L IVGAVIN, LIPID #### [facility] [address] [address] [address] Natalya Arthur Globulin (S) [Mass/Vol] 3.9 g/dL Normal [facility] Comment on above: Performed By: #### L IVGAVIN, LIPID #### [facility] [address] [place] [address] Dr. Natalya Arthur Protein [Mass/Vol] 7.3 g/dL Normal 6.1-8.2 [facility] Comment on above: Performed By: #### L IVER, LIPID #### [facility] [address] [place] [address] Dr. Natalya Arthur PROTIMEon 07-12-2021 INR Coag (PPP) [Relative time] 1.10 {INR} Normal [facility] Comment on above: Performed By: #### F ETIBC, FERR #### [facility] [address] [place] [address] Dr. Natalya Arthur INR GUIDELINES SEE BELOW Normal [facility] Comment on above: Result Comment: REFUGIO RED INR: 2.0 - 3.0 CONDITIONS NOT LISTED BELOW 2.5 - 3.5 FOR PROSTHETIC HEART VALVE REPLACEMENT 2.5 - 3.5 RECURRENT THROMBOSIS Performed By: #### F ETIBC, FERR #### [facility] [address] [place] [address] Dr. Natalya Arthur PT Coag (PPP) [Time] 11.8 s Critically high 9.0-11.6 [facility] Comment on above: Performed By: #### F ETIBC, FERR #### [facility] [address] [place] [address] Dr. Natalya Arthur Comprehensive Metabolic Pane ross 06-07-2021 Albumin [Mass/Vol] 3.9 g/dL Normal 3.6-5.1 [facility] [employer] Teacher Comment on above: Performed By: #### C MP #### [facility] [address] [place], [place] [id number] Albumin/Globulin [Mass ratio] 1.4 {ratio} Normal 1.0-2.5 [facility] [employer] Comment on above: Performed By: #### C MP #### [facility] [address] [place], [place] [id number] ALP [Catalytic activity/Vol] 128 U/L Normal 40-129 [facility] [employer] Comment on above: Performed By: #### C MP #### [facility] [address] [place], [place] [id number] ALT [Catalytic activity/Vol] 45 U/L Normal 9-46 [facility] Comment on above: Result Comment: 02/22 Female reference range changed. Performed By: #### C MP #### [facility] [address] [place], [place] [id number] Anion gap [Moles/Vol] 15 mmol/L Normal 12-20 [facility] Comment on above: Result Comment: Effe ctive 03/30/2019 reference range changed. Performed By: #### C MP #### [facility] [address] [place], [place] [id number] AST [Catalytic activity/Vol] 49 U/L High 10-40 [facility] Comment on above: Performed By: #### C MP #### [facility] [address] [place], [place] [id number] Bilirubin [Mass/Vol] 0.36 mg/dL Normal 0.30-1.20 [facility] Comment on above: Performed By: #### C MP #### [facility] [address] [place], [place] [id number] BUN/CREA 15 Ratio Normal 6-22 [facility] Comment on above: Performed By: #### C MP #### [facility] [address] [place], [place] [id number] Calcium [Mass/Vol] 9.2 mg/dL Normal 8.6-10.2 [facility] Comment on above: Performed By: #### C MP #### [facility] [address] [place], [place] [id number] Chloride [Moles/Vol] 104 mmol/L Normal 98-107 [facility] Comment on above: Performed By: #### C MP #### [facility] [address] [place], [place] [id number] CO2 [Moles/Vol] 24 mmol/L Normal 20-31 [facility] Comment on above: Performed By: #### C MP #### [facility] [address] [place], [place] [id number] Creatinine [Mass/Vol] 1.0 mg/dL Normal 0.7-1.4 [facility] Comment on above: Performed By: #### C MP #### [facility] [address] [place], [place] [id number] eGFRAA 90 mL/min/1.73m2 Normal >60 [facility] Comment on above: Performed By: #### C MP #### [facility] [address] [place], [place] [id number] eGFRNAA 74 mL/min/1.73m2 Normal >60 [facility] Comment on above: Performed By: #### C MP #### [facility] [address] [place], [place] [id number] Globulin (S) [Mass/Vol] 2.7 g/dL Normal 1.9-3.7 [facility] Comment on above: Performed By: #### C MP #### [facility] [address] [place], [place] [id number] Glucose [Mass/Vol] 111 mg/dL High 65-99 [facility] Comment on above: Result Comment: For FASTING Glucose --- ADA reference ranges: Normal 65-99 mg/dl Prediabetes 100-125 Diabetes >/= 126 Performed By: #### C MP #### [facility] [address] [place], [place] [id number] Potassium [Moles/Vol] 4.5 mmol/L Normal 3.5-5.5 [facility] Comment on above: Performed By: #### C MP #### [facility] [address] [place], [place] [id number] Protein [Mass/Vol] 6.6 g/dL Normal 6.1-8.1 [facility] Comment on above: Performed By: #### C MP #### [facility] [address] [place], [place] [id number] Sodium [Moles/Vol] 139 mmol/L Normal 135-146 [facility] Comment on above: Performed By: #### C MP #### [facility] [address] [place], [place] [id number] Urea nitrogen [Mass/Vol] 15 mg/dL Normal 7-25 [facility] Comment on above: Performed By: #### C MP #### [facility] [address] [place], [place] [id number] Q - HEPATITIS PANEL ABC GENE RAL WITH REFLEXon 06-07-2021 HEPATITIS A AB, TOTAL Non-Reactive Normal NON-RE ACTI VE [facility] [employer] Comment on above: Order Comment: [facility] performed at: [employer], [facility], [address] , [address] [place] [address], [address] [place] [address], Body Mechanic Apprentice: Sd Sharma MD [facility] Collection Date/Time: [facility] Results Received Date/Time: [facility] Reported Date/Time: Result Comment: For additional information, please refer to http://education.Edenbee.com/faq/XIP810 (This link is being provided for informational/ educational purposes only.) Performed By: #### 6 [id number] #### [facility] [address] [place] [address] HEPATITIS B CORE AB TOTAL Non-Reactive Normal NON-REACTI VE [facility] [employer] Teacher Comment on above: Order Comment: [facility] performed at: [facility], [address] , [address] [place] [address], [address] [place] [address], Body Mechanic Apprentice: Sd Sharma MD [facility] Date/Time: [facility] Results Received Date/Time: [facility] Reported Date/Time: Performed By: #### 6 [id number] #### [facility] [address] [place] [address] HEPATITIS B SURFACE ANTIBODY QL Non-Reactive Normal NON-REACTI VE [facility] [employer] Teacher Comment on above: Order Comment: [facility] performed at: [employer], [facility], [address] , [address] [place] [address], [address] [place] [address], Body Mechanic Apprentice: Sd Sharma MD [facility] Date/Time: [facility] Results Received Date/Time: [facility] Reported Date/Time: Performed By: #### 6 [id number] #### [facility] [address] [place] [address] HEPATITIS B SURFACE ANTIGEN Non-Reactive Normal NON-REACTI VE [facility] Comment on above: Order Comment: [facility] performed at: [employer], [facility], [address] [place] [address], [address] [place] [address], [address] [place] [address], Body Mechanic Apprentice: Sd Sharma MD [facility] Date/Time: [facility] Results Received Date/Time: [facility] Reported Date/Time: Performed By: #### 6 462X #### [facility] [address] [place] [address] HEPATITIS C ANTIBODY Non-Reactive Normal NON-AMANDA CTI VE [facility] Comment on above: Order Comment: [facility] performed at: [employer], [facility], [address] [facility], [address] [place] [address], [address] [place] [address], Body Mechanic Apprentice: Sd Sharma MD [facility] Date/Time: [facility] Results Received Date/Time: [facility] Reported Date/Time: Performed By: #### 6 [id number] #### [facility] [address] [place] [address] SIGNAL TO CUT-OFF 0.02 Normal <1.00 [facility] Comment on above: Order Comment: [facility] performed at: [employer], [facility], [address] [place] [address], [address] [place] [address], [address] [place] [address], Body Mechanic Apprentice: dS Sharma MD [facility] Date/Time: [facility] Results Received Date/Time: [facility] Reported Date/Time: Result Comment: HCV antibody was non-reactive. There is no laboratory evidence of HCV infection. In most cases, no further action is required. However, if recent HCV exposure is suspected, a test for HCV RNA (test code 13189) is suggested. For additional information please refer to http://education.Edenbee.com/faq/PIO39n0 (This link is being provided for informational/ educational purposes only.) Performed By: #### 6 [id number] #### [facility] [address] [place] [address] Complete Blood Count with Au to Diffon 05-01-2021 Basophils (Bld) [#/Vol] 0.05 10*3/uL Normal 0.00-0.20 [facility] [employer] Comment on above: Performed By: #### C BCAD, CMP, VITD, TSH reflex FT4, LIPD #### [facility] [address] [place], [place] [id number] Basophils/100 WBC (Bld) 1.1 % Normal [facility] [employer] Comment on above: Performed By: #### C BCAD, CMP, VITD, TSH reflex FT4, LIPD #### [facility] [address] [place], [place] [id number] Eosinophils (Bld) [#/Vol] 0.29 10*3/uL Normal 0.02-0.50 [facility] [employer] Comment on above: Performed By: #### C BCAD, CMP, VITD, TSH reflex FT4, LIPD #### [facility] [address] [place], [place] [id number] Eosinophils/100 WBC (Bld) 6.3 % Normal [facility] [employer] Teacher Comment on above: Performed By: #### C BCAD, CMP, VITD, TSH reflex FT4, LIPD #### [facility] [address] [place], [place] [id number] Erythrocyte distribution width (RBC) [Ratio] 12.9 % Normal 11.0-15.0 [facility] [employer] Teacher Comment on above: Performed By: #### C BCAD, CMP, VITD, TSH reflex FT4, LIPD #### [facility] [address] [place], [place] [id number] Hematocrit (Bld) [Volume fraction] 40.4 % Normal 38.5-50.0 [facility] [employer] Teacher Comment on above: Performed By: #### C BCAD, CMP, VITD, TSH reflex FT4, LIPD #### [facility] [address] [place], [place] [id number] Hemoglobin (Bld) [Mass/Vol] 13.1 g/dL Normal 13.0-17.1 [facility] [employer] Teacher Comment on above: Performed By: #### C BCAD, CMP, VITD, TSH reflex FT4, LIPD #### [facility] [address] [place], [place] [id number] Lymphocytes (Bld) [#/Vol] 0.9 10*3/uL Normal 0.9-3.9 [facility] Comment on above: Performed By: #### C BCAD, CMP, VITD, TSH reflex FT4, LIPD #### [facility] [address] [place], [place] [id number] Lymphocytes/100 WBC (Bld) 18.6 % Normal [facility] Comment on above: Performed By: #### C BCAD, CMP, VITD, TSH reflex FT4, LIPD #### [facility] [address] [place], [place] [id number] MCH (RBC) [Entitic mass] 31.0 pg Normal 27.0-33.0 [facility] Comment on above: Performed By: #### C BCAD, CMP, VITD, TSH reflex FT4, LIPD #### [facility] [address] [place], [place] [id number] MCHC (RBC) [Mass/Vol] 32.4 g/dL Normal 32.0-36.0 [facility] Comment on above: Performed By: #### C BCAD, CMP, VITD, TSH reflex FT4, LIPD #### [facility] [address] [place], [place] [id number] MCV (RBC) [Entitic vol] 96 fL Normal 80-100 [facility] Comment on above: Performed By: #### C BCAD, CMP, VITD, TSH reflex FT4, LIPD #### [facility] [address] [place], [place] [id number] Monocytes (Bld) [#/Vol] 0.4 10*3/uL Normal 0.2-0.9 [facility] Comment on above: Performed By: #### C BCAD, CMP, VITD, TSH reflex FT4, LIPD #### [facility] [address] [place], [place] [id number] Monocytes/100 WBC (Bld) 8.4 % Normal [facility] Comment on above: Performed By: #### C BCAD, CMP, VITD, TSH reflex FT4, LIPD #### [facility] [address] [place], [place] [id number] Neutrophils (Bld) [#/Vol] 3.0 10*3/uL Normal 1.5-7.8 [facility] Comment on above: Performed By: #### C BCAD, CMP, VITD, TSH reflex FT4, LIPD #### [facility] [address] [place], [place] [id number] Neutrophils/100 WBC (Bld) 65.4 % Normal [facility] Comment on above: Performed By: #### C BCAD, CMP, VITD, TSH reflex FT4, LIPD #### [facility] [address] [place], [place] [id number] Platelet mean volume (Bld) [Entitic vol] 10.20 fL Normal 7.50-12.50 [facility] Comment on above: Performed By: #### C BCAD, CMP, VITD, TSH reflex FT4, LIPD #### [facility] [address] [place], [place] [id number] Platelets (Bld) [#/Vol] 141 10*3/uL Normal 140-400 [facility] Comment on above: Performed By: #### C BCAD, CMP, VITD, TSH reflex FT4, LIPD #### [facility] [address] [place], [place] [id number] RBC (Bld) [#/Vol] 4.22 10*6/uL Normal 4.20-5.80 [facility] Comment on above: Performed By: #### C BCAD, CMP, VITD, TSH reflex FT4, LIPD #### [facility] [address] [place], [place] [id number] RDW-SD 45.2 fL Normal 37.0-50.0 [facility] Comment on above: Performed By: #### C BCAD, CMP, VITD, TSH reflex FT4, LIPD #### [facility] [address] [place], [place] [id number] WBC (Bld) [#/Vol] 4.6 10*3/uL Normal 3.8-11.0 [facility] [place] [employer] Comment on above: Performed By: #### C BCAD, CMP, VITD, TSH reflex FT4, LIPD #### [facility] [address] [place], [place] [id number] Comprehensive Metabolic Pane ross 05-01-2021 Albumin [Mass/Vol] 4.0 g/dL Normal 3.6-5.1 [facility] [place] [employer] Comment on above: Performed By: #### C BCAD, CMP, VITD, TSH reflex FT4, LIPD #### [facility] [address] [place], [place] [id number] Albumin/Globulin [Mass ratio] 1.5 {ratio} Normal 1.0-2.5 [facility] Comment on above: Performed By: #### C BCAD, CMP, VITD, TSH reflex FT4, LIPD #### [facility] [address] [place], [place] [id number] ALP [Catalytic activity/Vol] 140 U/L High 40-129 [facility] Comment on above: Performed By: #### C BCAD, CMP, VITD, TSH reflex FT4, LIPD #### [facility] [address] [place], [place] [id number] ALT [Catalytic activity/Vol] 63 U/L High 9-46 [facility] Comment on above: Result Comment: 02/22 Female reference range changed. Performed By: #### C BCAD, CMP, VITD, TSH reflex FT4, LIPD #### [facility] [address] [place], [place] [id number] Anion gap [Moles/Vol] 17 mmol/L Normal 12-[address] [facility]ist Comment on above: Result Comment: Effe ctive 03/30/2019 reference range changed. Performed By: #### C BCAD, CMP, VITD, TSH reflex FT4, LIPD #### [facility] [address] [place], [place] [id number] AST [Catalytic activity/Vol] 62 U/L High 10-40 [facility] [employer] Comment on above: Performed By: #### C BCAD, CMP, VITD, TSH reflex FT4, LIPD #### [facility] [address] [place], [place] [id number] Bilirubin [Mass/Vol] 0.41 mg/dL Normal 0.30-1.20 [facility] Comment on above: Performed By: #### C BCAD, CMP, VITD, TSH reflex FT4, LIPD #### [facility] [address] [place], [place] [id number] BUN/CREA 13 Ratio Normal 6-22 [facility] Comment on above: Performed By: #### C BCAD, CMP, VITD, TSH reflex FT4, LIPD #### [facility] [address] [place], [place] [id number] Calcium [Mass/Vol] 9.5 mg/dL Normal 8.6-10.2 [facility] Comment on above: Performed By: #### C BCAD, CMP, VITD, TSH reflex FT4, LIPD #### [facility] [address] [place], [place] [id number] Chloride [Moles/Vol] 106 mmol/L Normal 98-107 [facility] Comment on above: Performed By: #### C BCAD, CMP, VITD, TSH reflex FT4, LIPD #### [facility] [address] [place], [place] [id number] CO2 [Moles/Vol] 26 mmol/L Normal 20-31 [facility] Comment on above: Performed By: #### C BCAD, CMP, VITD, TSH reflex FT4, LIPD #### [facility] [address] [place], [place] [id number] Creatinine [Mass/Vol] 0.9 mg/dL Normal 0.7-1.4 [facility] Comment on above: Performed By: #### C BCAD, CMP, VITD, TSH reflex FT4, LIPD #### [facility] [address] [place], [place] [id number] eGFRAA 99 mL/min/1.73m2 Normal >60 [facility] Comment on above: Performed By: #### C BCAD, CMP, VITD, TSH reflex FT4, LIPD #### [facility] [address] [place], [place] [id number] eGFRNAA 81 mL/min/1.73m2 Normal >60 [facility] [employer] Comment on above: Performed By: #### C BCAD, CMP, VITD, TSH reflex FT4, LIPD #### [facility] [address] [place], [place] [id number] Globulin (S) [Mass/Vol] 2.6 g/dL Normal 1.9-3.7 [facility] [employer] Teacher Comment on above: Performed By: #### C BCAD, CMP, VITD, TSH reflex FT4, LIPD #### [facility] [address] [place], [place] [id number] Glucose [Mass/Vol] 89 mg/dL Normal 65-99 [facility] [place] [employer] Comment on above: Result Comment: For FASTING Glucose --- ADA reference ranges: Normal 65-99 mg/dl Prediabetes 100-125 Diabetes >/= 126 Performed By: #### C BCAD, CMP, VITD, TSH reflex FT4, LIPD #### [facility] [address] [place], [place] [id number] Potassium [Moles/Vol] 5.0 mmol/L Normal 3.5-5.5 [facility] Comment on above: Performed By: #### C BCAD, CMP, VITD, TSH reflex FT4, LIPD #### [facility] [address] [place], [place] [id number] Protein [Mass/Vol] 6.6 g/dL Normal 6.1-8.1 [facility] [place] [employer] Comment on above: Performed By: #### C BCAD, CMP, VITD, TSH reflex FT4, LIPD #### [facility] [address] [place], [place] [id number] Sodium [Moles/Vol] 143 mmol/L Normal 135-146 [facility] damon [place] [employer] Teacher Comment on above: Performed By: #### C BCAD, CMP, VITD, TSH reflex FT4, LIPD #### [facility] [address] [place], [place] [id number] Urea nitrogen [Mass/Vol] 12 mg/dL Normal 7-25 [facility] [employer] Teacher Comment on above: Performed By: #### C BCAD, CMP, VITD, TSH reflex FT4, LIPD #### [facility] [address] [place], [place] [id number] Lipid Panelon 05-01-2021 Cholesterol [Mass/Vol] 135 mg/dL Normal 125-200 [facility] on above: Result Comment: Low risk < 200mg/dL Borderline risk 201-239 mg/dl High risk > or equal to 240 Performed By: #### C BCAD, CMP, VITD, TSH reflex FT4, LIPD #### [facility] [address] [place], [place] [id number] Cholesterol in HDL [Mass/Vol] 44 mg/dL Normal >40 [facility] Specialist Comment on above: Result Comment: High Cardiovascular Risk HDL <40 mg/dL Low Cardiovascular Risk HDL > or equal to 60 mg/dl Performed By: #### C BCAD, CMP, VITD, TSH reflex FT4, LIPD #### [facility] [address] [place], [place] [id number] Cholesterol in LDL [Mass/Vol] 65 mg/dL Normal [facility] Comment on above: Result Comment: LDL ATP III CLASSIFICATION LDL less than 100 mg/dl Optimal LDL 100-129 mg/dl Near or above optimal LDL 130-159 Borderline high LDL 160-189 High LDL greater than 189 mg/dl Very High Performed By: #### C BCAD, CMP, VITD, TSH reflex FT4, LIPD #### [facility] [address] [place], [place] [id number] Cholesterol in VLDL [Mass/Vol] 26 mg/dL Normal [facility] Comment on above: Performed By: #### C BCAD, CMP, VITD, TSH reflex FT4, LIPD #### [facility] [address] [place], [place] [id number] Cholesterol.total/Chol esterol in HDL [Mass ratio] 3 {ratio} Normal [facility] Specialist Comment on above: Performed By: #### C BCAD, CMP, VITD, TSH reflex FT4, LIPD #### [facility] [address] [place], [place] [id number] Triglyceride [Mass/Vol] 130 mg/dL Normal 30-150 [facility] Comment on above: Result Comment: TRIG ATPIII CLASSIFICATIONS TRIG less than 150 mg/dl Normal TRIG 150-199 mg/dl Borderline High TRIG 200-500 mg/dl High TRIG greather than 500 mg/dl Very High Performed By: #### C BCAD, CMP, VITD, TSH reflex FT4, LIPD #### [facility] [address] [place], [place] [id number] PSA SCREEN (MEDICARE)on TPSA 0.983 ng/mL Normal <4.000 [facility] [employer] Teacher Comment on above: Result Comment: PSA Test Method: ECLIA/Mick e 601 Performed By: #### P SA #### [facility] [address] [place], [place] [id number] TSH w/ Reflex to Free T4on 0 05-01-2021 TSH 1.150 uIU/mL Normal 0.400-4.50 0 [facility] [employer] Comment on above: Performed By: #### C BCAD, CMP, VITD, TSH reflex FT4, LIPD #### [facility] [address], [place] [id number] Vitamin D 25-OHon 05-01-2021 VIT D 25 OH 32 ng/ml Normal >29 [facility] [employer] Teacher Comment on above: Result Comment: Maria E min D Status Deficiency <20 ng/mL Insufficiency 20-29 ng/mL Optimal 30-100 ng/mL Possible Toxicity >=150 ng/mL Performed By: #### C BCAD, CMP, VITD, TSH reflex FT4, LIPD #### [facility] [address], [place] [id number] Covid-19 PCR (CVDTBH)on SARS-CoV-2 (COVID-19) RNA GÓMEZ+probe Ql (Unsp spec) Not detected Normal NOT DETECTED [facility] Comment on above: Result Comment: This test is not yet approved or cleared by the [place] FDA. When there are no FDA-approved or cleared tests available, and other criteria are met, FDA can make tests available under an emergency access mechanism called an Emergency Use Authorization (EUA). The EUA for this test is supported by the [place] of Health and Human Service's (HHS's) declaration [...] Performed By: #### F ETIBC, FERR #### [facility] [address] [place] [address] Dr. Natalya Arthur CBC AUTO DIFFon 02-03-2021 BASO # 0.0 103/ul Normal 0.0-0.1 [facility] Comment on above: Performed By: #### C BC #### [facility] [address] [place] [address] Dr. Natalya Arthur Basophils/100 WBC (Bld) 0.3 % Normal 0.2-2.0 [facility] Comment on above: Performed By: #### C BC #### [facility] [address] [place] [address] Dr. Natalya Arthur EO # 0.0 103/ul Normal 0.0-0.7 [facility] Comment on above: Performed By: #### C BC #### [facility] [address] [place] [address] Dr. Natalya Arthur Eosinophils/100 WBC (Bld) 0.1 % Critically low 0.9-7.0 [facility] Comment on above: Performed By: #### C BC #### [facility] [address] [place] [address] Dr. Natalya Arthur Erythrocyte distribution width (RBC) [Ratio] 13.2 % Normal 11.0-15.0 [facility] Comment on above: Performed By: #### C BC #### [facility] [address] [place] [address] Dr. Natalya Arthur Hematocrit (Bld) [Volume fraction] 46.5 % Normal 42.0-54.0 [facility] Comment on above: Performed By: #### C BC #### [facility] [address] [place] [address] Dr. Natalya Arthur Hemoglobin (Bld) [Mass/Vol] 15.2 g/dL Normal 14.0-18.0 [facility] Comment on above: Performed By: #### C BC #### [facility] [address] [place] [address] Dr. Natalya Arthur IG # 0.04 10e3/ul Critically high 0.00-0.03 [facility] Comment on above: Performed By: #### C BC #### [facility] [address] [place] [address] Dr. Natalya Arthur IG % 0.3 % Normal 0.0-0.5 [facility] Comment on above: Performed By: #### C BC #### [facility] [address] [place] [address] Dr. Natalya Arthur LYMPH # 1.2 103/ul Normal 1.2-3.8 [facility] Comment on above: Performed By: #### C BC #### [facility] [address] [place] [address] Dr. Natalya Arthur Lymphocytes/100 WBC (Bld) 10.3 % Critically low 20.5-60.0 [facility] Comment on above: Performed By: #### C BC #### [facility] [address] [place] [address] Dr. Natalya Arthur MANUAL DIFF REQ NO Normal [facility] Comment on above: Performed By: #### C BC #### [facility] [address] [place] [address] Dr. Natalya Arthur MCH (RBC) [Entitic mass] 31.0 pg Normal 25.9-34.0 [facility] Comment on above: Performed By: #### C BC #### [facility] [address] [place] [address] Dr. Natalya Arthur MCHC (RBC) [Mass/Vol] 32.7 g/dL Normal 29.9-35.2 [facility] Comment on above: Performed By: #### C BC #### [facility] [address] [address] [address] Natalya Arthur MCV (RBC) [Entitic vol] 94.9 fL Critically high 80.0-94.0 [facility] Comment on above: Performed By: #### C BC #### [facility] [address] [address] [address] Natalya Arthur MONO # 1.1 103/ul Critically high 0.3-0.8 [facility] Comment on above: Performed By: #### C BC #### [facility] [address] [address] [address] Natalya Arthur Monocytes/100 WBC (Bld) 9.2 % Normal 1.7-12.0 [facility] Comment on above: Performed By: #### C BC #### [facility] [address] [address] [address] Natalya Arthur NEUT # 9.6 103/ul Critically high 1.4-6.5 [facility] Comment on above: Performed By: #### C BC #### [facility] [address] [address] [address] Natalya Arthur Neutrophils/100 WBC (Bld) 79.8 % Critically high 43.0-75.0 [facility] Comment on above: Performed By: #### C BC #### [facility] [address] [place] [address] Dr. Natalya Arthur Platelet mean volume (Bld) [Entitic vol] 10.3 fL Normal 9.5-13.5 [facility] Comment on above: Performed By: #### C BC #### [facility] [address] [address] [address] Natalya Arthur PLT 126 103/ul Critically low 150-450 [facility] Comment on above: Performed By: #### C BC #### [facility] [address] [address] [address] Natalya Arthur RBC 4.90 106/ul Normal 4.70-6.10 [facility] Comment on above: Performed By: #### C BC #### [facility] [address] [place] [address] Dr. Natalya Arthur WBC 12.1 103/ul Critically high 4.0-11.0 [facility] Comment on above: Performed By: #### C BC #### [facility] [address] [place] [address] Dr. Natalya ALONSO URINE PROFILEon 1 Bilirubin Ql (U) Negative Normal NEGATIVE [facility] Comment on above: Performed By: #### Arthur MCLEAN UMICRO #### [facility] [address] [place] [address] Dr. Natalya Arthur Clarity (U) CLEAR Normal CLEAR [facility] Comment on above: Performed By: #### Arthur MCLEAN UMICRO #### [facility] [address] [place] [address] Dr. Natalya Arthur Color (U) YELLOW Normal YELLOW [facility] Comment on above: Performed By: #### ROHAN BESSRO #### [facility] [address] [place] [address] Dr. Natalya Arthur ERURUBINA A micrscopic examina tion will be performed if indicated. Normal [facility] Comment on above: Performed By: #### BERTRAM BESSICRO #### [facility] [address] [place] [address] Dr. Natalya Arthur Glucose Ql (U) Negative Normal NEGATIVE [facility] Comment on above: Performed By: #### Arthur MCLEAN UMICRO #### [facility] [address] [place] [address] Dr. Natalya Arthur Hemoglobin Ql (U) LARGE Abnormal NEGATIVE [facility] Comment on above: Performed By: #### Arthur MCLEAN UMICRO #### [facility] [address] [place] [address] Dr. Natalya Arthur Ketones Ql (U) Negative Normal NEGATIVE [facility] Comment on above: Performed By: #### Arthur MCLEAN UMICRO #### [facility] [address] [place] [address] Dr. Natalya Arthur LEUKOCYTES Negative Normal NEGATIVE [facility] Comment on above: Performed By: #### Arthur MCLEAN UMICRO #### [facility] [address] [place] [address] Dr. Natalya Arthur Nitrite Ql (U) Negative Normal NEGATIVE [facility] Comment on above: Performed By: #### E VINAY, UMICRO #### [facility] [address] [place] [address] Dr. Natalya Arthur pH (U) 6.0 [pH] Normal 5-9 [facility] Comment on above: Performed By: #### E VINAY, UMICRO #### [facility] [address] [place] [address] Dr. Natalya Arthur Protein (U) [Mass/Vol] 100 mg/dL Abnormal NEGAT ANTONIO/ TRACE [facility] Comment on above: Performed By: #### Arthur MCLEAN UMICRO #### [facility] [address] [place] [address] Dr. Natalya Arthur SPEC GRAVITY >=1.030 Abnormal 1.005-<=1. 025 [facility] Comment on above: Performed By: #### Arthur MCLEAN UMICRO #### [facility] [address] [place] [address] Dr. Natalya Arthur UR MICRO IND INDICATED Normal [facility] Comment on above: Performed By: #### Arthur MCLEAN UMICRO #### [facility] [address] [place] [address] Dr. Natalya Arthur Urobilinogen Qn (U) 0.2 {Vonnie'U}/dL Normal 0.2 - 1. 0 [facility] Comment on above: Performed By: #### Arthur MCLEAN UMICRO #### [facility] [address] [place] [address] Dr. Natalya Arthur LACTATE/LACTIC ACIDon 2020 Lactate [Moles/Vol] 1.7 mmol/L Normal 0.7-2.0 [facility] Comment on above: Performed By: #### C VDTBH #### [facility] [address] [place] [address] Dr. Natalya Arthur LIPASEon 02-03-2021 Lipase [Catalytic activity/Vol] 143.0 U/L Normal 23.0-300.0 [facility] Comment on above: Performed By: #### C VDTBH #### [facility] [address] [place] [address] Dr. Natalya Arthur PROF 14(COMP METB)on 021 Albumin [Mass/Vol] 3.6 g/dL Normal 3.5-5.0 [facility] Comment on above: Performed By: #### C VDTBH #### [facility] [address] [place] [address] Dr. Natalya Arthur Albumin/Globulin [Mass ratio] 0.8 {ratio} Normal [facility] Comment on above: Performed By: #### C VDTBH #### [facility] [address] [place] [address] Dr. Natalya Arthur ALP [Catalytic activity/Vol] 108 U/L Normal 38-126 [facility] Comment on above: Performed By: #### C VDTBH #### [facility] [address] [place] [address] Dr. Natalya Arthur ALT [Catalytic activity/Vol] 65 U/L Normal 21-72 [facility] Comment on above: Performed By: #### C VDTBH #### [facility] [address] [place] [address] Dr. Natalya Arthur Anion gap [Moles/Vol] 13.9 mmol/L Normal [facility] Comment on above: Performed By: #### C VDTBH #### [facility] [address] [place] [address] Dr. Natalya Arthur AST [Catalytic activity/Vol] 42 U/L Normal 17-59 [facility] Comment on above: Performed By: #### C VDTBH #### [facility] [address] [place] [address] Dr. Natalya Arthur Bilirubin [Mass/Vol] 1.0 mg/dL Normal 0.2-1.3 [facility] Comment on above: Performed By: #### C VDTBH #### [facility] [address] [address] [address] Natalya Arthur Calcium [Mass/Vol] 9.7 mg/dL Normal 8.4-10.2 [facility] Comment on above: Performed By: #### C VDTBH #### [facility] [address] [place] [address] Dr. Natalya Arthur Chloride [Moles/Vol] 100 mmol/L Normal 98-107 [facility] Comment on above: Performed By: #### C VDTBH #### [facility] [address] [place] [address] Dr. Natalya Arthur CO2 [Moles/Vol] 28.2 mmol/L Normal 22.0-30.0 [facility] Comment on above: Performed By: #### C VDTBH #### [facility] [address] [place] [address] Dr. Natalya Arthur Creatinine [Mass/Vol] 1.18 mg/dL Normal 0.66-1.25 [facility] Comment on above: Performed By: #### C VDTBH #### [facility] [address] [place] [address] Dr. Natalya Arthur EGFR-AF NEPALESE >60 Normal >=60 [facility] Comment on above: Performed By: #### C VDTBH #### [facility] [address] [place] [address] Dr. Natalya Arthur EGFR-NON AF NEPALESE =60 Normal >=60 [facility] Comment on above: Performed By: #### C VDTBH #### [facility] [address] [place] [address] Dr. Natalya Arthur Globulin (S) [Mass/Vol] 4.5 g/dL Normal [facility] Comment on above: Performed By: #### C VDTBH #### [facility] [address] [place] [address] Dr. Natalya Arthur Glucose [Mass/Vol] 121 mg/dL Critically high 74-106 [facility] Comment on above: Performed By: #### C VDTBH #### [facility] [address] [place] [address] Dr. Natalya Arthur Potassium [Moles/Vol] 4.1 mmol/L Normal 3.4-5.0 [facility] Comment on above: Performed By: #### C VDTBH #### [facility] [address] [address] [address] Natalya Arthur Protein [Mass/Vol] 8.1 g/dL Normal 6.1-8.2 [facility] Comment on above: Performed By: #### C VDTBH #### [facility] [address] [address] [address] Natalya Arthur Sodium [Moles/Vol] 138 mmol/L Normal 137-145 [facility] Comment on above: Performed By: #### C VDTBH #### [facility] [address] [place] [address] Dr. Natalya Arthur Urea nitrogen [Mass/Vol] 17.0 mg/dL Normal 9.0-20.0 [facility] Comment on above: Performed By: #### C VDTBH #### [facility] [address] [place] [address] Dr. Natalya Arthur Urea nitrogen/Creatinine [Mass ratio] 14.4 mg/mg Normal [facility] Comment on above: Performed By: #### C VDTBH #### [facility] [address] [place] [address] Dr. Natalya Arthur TROPONIN, HIGH SENSITIVITYon 02-03-2021 HSTROP 49.0 pg/mL Critically high 4.0-42.2 [facility] Comment on above: Result Comment: CUT- OFF POINTS HAVE BEEN ESTABLISHED BASED ON THE FOURTH UNIVERSAL DEFINITIONS OF MYOCARDIAL INFARCTION. THE UPPER REFERENCE LIMIT (URL) OF TROPONIN, DEFINED THE 99TH PERCENTILE OF cTnI DISTRIBUTION IN A REFERENCE POPULATION, HAS BEEN CONFIRMED THE DECISION THRESHOLD FOR CO DIAGNOSIS. Performed By: #### C VDTBH #### [facility] [address] [address] [address] Natalya Arthur URINE MICROSCOPIC ONLYon AMORPHOUS CRYSTALS FEW Normal [facility] Comment on above: Performed By: #### MICK BESS #### [facility] [address] [place] [address] Dr. Natalya Arthur BACTERIA TRACE Abnormal NONE SEEN [facility] Comment on above: Performed By: #### Arthur MCLEAN UMICRO #### [facility] [address] [place] [address] Dr. Natalya Arthur Bacteria identified Cx Nom (U) NOT INDICATED Normal [facility] Comment on above: Performed By: #### Arthur MCLEAN UMICRO #### [facility] [address] [place] [address] Dr. Natalya Arthur CAST NONE SEEN Normal NONE SEEN [facility] Comment on above: Performed By: #### E VINAY UMICRO #### [facility] [address] [place] [address] Dr. Natalya Arthur Crystals LM Nom (Urine sed) SEEN Abnormal NONE SEEN [facility] Comment on above: Performed By: #### Arthur MCLEAN UMICRO #### [facility] [address] [place] [address] Dr. Natalya Arthur Epithelial cells LM Ql (Urine sed) FEW Abnormal NONE SEEN /RARE [facility] Comment on above: Performed By: #### Arthur MCLEAN UMICRO #### [facility] [address] [place] [address] Dr. Natalya Arthur MUCOUS LARGE Abnormal NONE SEEN [facility] Comment on above: Performed By: #### Arthur MCLEAN UMICRO #### [facility] [address] [place] [address] Dr. Natalya Arthur RBC 10-20 Abnormal 0-2 [facility] Comment on above: Performed By: #### Arthur MCLEAN UMICRO #### [facility] [address] [place] [address] Dr. Natalya Arthur WBC 0-2 Abnormal NONE SEEN [facility] Comment on above: Performed By: #### E VINAY UMICRO #### [facility] [address] [place] [address] Dr. Natalya Arthur US SINGLE QUAD RT [...] STEPHEN ARBOLEDA Date: 2021-02-03 19:08 Normal [facility] XR CHEST 1 Von 02-03-2021 XR CHEST [...] STEPHEN ARBOLEDA Date: 2021-02-03 19:22 Normal [facility] Cardiovascular Lab Reporton 10-31-2018 Cardiovascular Lab Report [facility] #: [id number] Department of Physician: Artis Horner M.D. Division of Service Date: 10/30/2018 Cardiology Birthdate: 1945 Adult Cardiovascular Room #: [place] [address] Cardiovascular Laboratory Report CLINICAL PRESENTATION: Pankaj Payne is a 73-year-old male with past medical history significant for CAD, status post prior PCI of the left circumflex coronary artery in 02/2018; hypertension; hyperlipidemia; hypothyroidism. The patient was evaluated by Dr. Tenorio in the [place] [facility] [place] office. He reports worsening fatigue that was [...] noted. 4. Outpatient followup with Dr. Tenorio, [facility]. PROCEDURES: Coronary angiogram, left heart catheterization, [...] over the Magic Torque guidewire. Initially, a 5-Gibraltarian [place] catheter was used to engage the coronary arteries. The [place] catheter engaged the right coronary artery, but [...] elected to proceed with IFR evaluation. The [place] Verrata wire was zeroed outside of the body and then normalized at the catheter guide tip. Heparin anticoagulation was used for this procedure and the ACT was maintained greater than 200 seconds. The [place] Verrata wire was then manipulated to the [...] Schafer M.D. Date Trans: 10/31/2018 05:07 Rishabh/katelin [id number] cc: Frantz Conley M.D. [address] [id number] Frantz Tenorio M.D. [address] [address] Normal [facility] Operative Reporton 8 Operative Report Date of Surgery: 02/25/2018SURGEON: [...] day for postoperative care.Hardeep Fraga D.O.glsDictated: 02/25/2018 #[id number]: 02/25/2018 #[id number]: Hardeep Fraga D.O. [facility] Comment on above: Result Comment: Elec tronically Signed By: Hardeep Fraga DO\.br\Date and Time Signed: 03/03/18 12:57 EST Cardiovascular Lab Reporton 03-01-2018 Cardiovascular Lab Report [facility] Patient Name: [facility] Pankaj MR #: [id number] Department of Physician: Artis Pinedo M.D. Division of Service Date: 02/28/2018 Cardiology Birthdate: 1945 Adult Cardiovascular Room #: [address]AB [id number] [address] Cardiovascular Laboratory Report FINAL IMPRESSION: 1. Successful [...] the case was discussed by his referring automobile brake bonder, Dr. Tenorio, as well as with the patient's family. Also given multiple lesions in right , circumflex coronary artery and a distal LAD lesion, we also discussed CABG as an option. 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 We decided to treat circumflex. 6-Gibraltarian XB 3.0 guide was used to engage the left main coronary ostium. A 0.014 [place] wire was passed across the proximal circumflex into the 1st obtuse marginal branch. Predilatation was performed using a 2.5 x 15 balloon. Then, we deployed a 2.5 x 16 Synergy stent. This was post-dilated with a 2.75 x 15 noncompliant at 24 atmospheres. Final angiography showed good stent result in the proximal circumflex into the 1st obtuse marginal branch. The lum[place] circumflex stayed open. There were no complications. [...] Barahona M.D. Date Trans: 03/01/2018 03:16 Rishabh/katelin [id number] cc: JYOTI Villalobos [address] [place] [address] Frantz Conley M.D. [address] [address] Frantz Tenorio M.D. [address] [address] Normal [facility] History and Physicalon 02-28 History and Physical MR#: [id number] [facility] Pt. Name: Pankaj Payne Admitted: 02/28/2018 [...] Lopez M.D. Date Trans: 02/28/2018 04:44 P/reginoo [id number] Normal [facility] Coding Summary.on 02-26-2018 Coding Summary. 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 Name: PANKAJ PAYNE/Sex: 1945 Male Med Rec #: [id number] Physician: Hardeep Fraga DO Financial #: [id number] Pt. Type: A Room/Bed: AS109/22 Admit/Disch: 02/25/18 08:23:00 - 02/25/18 12:00:00 Institution: [...] RN, Sussy Role Performed Surgeon - Primary Baked And Graphite Inspector - Primary Baked And Graphite Inspector - Primary Time In 02/25/18 11:00:00 02/25/18 11:00:00 02/25/18 11:00:00 Time Out 02/25/18 11:18:00 02/25/18 11:18:00 02/25/18 11:18:00 Procedure CATARACT EXTRACTION W/ CATARACT EXTRACTION W/ CATARACT EXTRACTION W/ INTRAOCULAR LENS(Right) INTRAOCULAR LENS(Right) INTRAOCULAR LENS(Right) Comments Last Modified By: Tiffanie RN, Arnold Moreno RN, Arnold Nathan RN 02/25/18 11:17:52 02/25/18 11:17:52 02/25/18 11:17:52 Entry 4 Entry 5 Case Attendee Smith ARZOLA, Zoila Szymanski CST, Jeannien López Role Performed Scrub - Primary Scrub [...] Moreno RN, Weisenburger BSN, RN, Smith Hi PRESS CATCHER, Nessa Bhardwaj CST, Jeannine López Time Out [...] tissue Entry 1 Skin Integrity Warm, Dry, [place], Unable Outcomes Met? Yes to Visualize Last Modified By: Arnold Moreno RN 02/25/18 10:07:22 Post-Care Text: The patient is free from signs and symptoms of injury caused by extraneous objects General Comments: pt partially clothed, unable to assess all of skin/ ktinker rn Patient Positioning FT Pre-Care Text: Identifies [...] Arnold Moreno RN, Outcomes Met? Yes Clark ALEGRIAN, Sussy DAMON Last Modified By: Arnold Moreno [...] Instruments Status Correct Correct Time By Ruffing PRESS CATCHER, Zoila E Ruffing PRESS CATCHER, Zoila E Outcomes Met? Yes Yes Last [...] RN Patient Status Stable Skin. Condition Warm, [place], Dry Airway Maintenance Oxygen in Use? No [...] safely administered during the perioperative period For [place] please see scanned medication reconcilliation form for medications used at the field during the procedure. Implant Log FT Pre-Care Text: Records devices implanted during the operative or invasive procedure Entry 1 Implant/Explant Implant Implant Identification Description ROSENDA [id number] 12.50MM Serial Number [id number] 13.50 [[id number]] Lot Number [id number] Glass B[employer] FT-[employer]USCH [employer]OM[employer] Catalog ?# [id number][F] Expiration Date 05/23/19 Usage Data Implant Site right eye Quantity 1 Outcomes Met? Yes Last Modified By: Arnold Moreno RN 02/25/18 11:08:01 Post-Care Text: The patient is free from signs and symptoms of injury caused by extraneous objects Case Comments Finalized By: Elayne Agosto CST Document Signatures Signed By: Arnold Moreno RN 02/25/18 11:18 Elayne Agosto CST 02/26/18 14:08 Normal [facility] History and Physicalon 02-25 History and [...] in the near future.Hardeep Fraga D.O.aekDictated: 02/24/2018 #[id number] 02/25/2018 #[id number]: Hardeep Fraga D.O. [facility] Comment on above: Result Comment: Elec tronically Signed By: Hardeep Fraga DO\.br\Date and Time Signed: 02/25/18 10:24 EST Inpatient Patient Summaryon 02-25-2018 [facility] Instructions[facility] INFORMATION Name: PAYNEPANKAJ PHYSICIANS Admitting Physician: Hardeep Fraga DOAttending Physician: Hardeep Fraga DO PCP: FRANTZ CONLEY MD BDischarge Diagnosis: Cataract Comment: PATIENT EDUCATION INFORMATIONInstructions:M edication Leaflets:Follow up:With: Address: When: Hardeep Fraga [facility] [address], [address] [facility], [facility] [address] [phone] Business (3) Within 1 to 2 days MEDICATION LISTComment: [facility] Main OR PACU II Recordon Main OR PACU II Record PACU Phase II Doc ument Type FT Summary Primary Physician: Hardeep Fraga DO Finalized Date/Time: 02/25/18 12:33:41 Pt. Name: PANKAJ PAYNE D.O.B./Sex: 1945 Male Med Rec #: [id number] Physician: Hardeep Fraga DO Financial #: [id number] Pt. Type: A Room/Bed: [place] [address] Admit/Disch: 02/25/18 08:23:55 - Institution: Case Times [...] Signed By: Lissa Pope RN 02/25/18 12:33 [facility] Main OR Preoperative Recordo n 02-25-2018 Main OR Preoperative Record PreOp Document Type FT Summary Primary Physician: Hardeep Fraga DO Finalized Date/Time: 02/25/18 11:05:22 Pt. Name: PANKAJ PANYE/Sex: 1945 Male Med Rec #: [id number] Physician: Hardeep Fraga DO Financial #: [id number] Pt. Type: A Room/Bed: Admit/Disch: 12/04/18 08:23:55 - Institution: Case Times PreOp FT [...] By: Arnold Moreno RN 02/25/18 11:05 Normal [facility] Main OR Preoperative Record Holding Area Document Type FT Summary Primary Physician: Hardeep Fraga DO Finalized Date/Time: 02/25/18 08:46:23 Pt. Name: PAYNEPANKAJ./Sex: 1945 Male Med Rec #: [id number] Physician: Hardeep Fraga DO Financial #: [id number] Pt. Type: A Room/Bed: [facility]09/22 Admit/Disch: 02/25/18 08:23:55 - Institution: Case [...] Pope RN Document Signatures Signed By: Lissa oPpe RN 02/25/18 08:46 Normal [facility] Patient Education - Texton 1 04-28-2017 Patient Education - Text [facility] Progress Note-Physicianon Protein mass conc Patient: PANKAJ [...] Blood Loss: 0 ml. Complications: None. Normal [facility] Comment on above: Result Comment: Elec [...] day for postoperative care.Hardeep Fraga D.O.lkrDictated: 02/11/2018 #[id number]: 02/12/2018 #[id number]: Hardeep Fraga D.O. [facility] Comment on above: Result Comment: Elec tronically Signed By: Hardeep Fraga DO\.br\Date and Time Signed: 02/17/18 08:38 EST Coding Summary.on 02-12-2018 Coding Summary. CODING DATE: [address] [facility] STATUS: Home (Routine DC) PAYOR: Medicare APC DESCRIPTION 5491 Level 1 Intraocular Procedures ADMIT DX: REASON FOR VISIT DX: H25.13 Age-related nuclear cataract, bilateral FINAL DX: PRINCIPAL: H25.13 Age-related nuclear cataract, bilateral SECONDARY: H25.043 Posterior subcapsular polar age-related cataract, bilateral E03.9 Hypothyroidism, unspecified PYMT PROC APC STAT DESCRIPTION DOCTOR NAME DATE 01310 5491 J1 Extracapsular cataract Hardeep Fraga DO [...] Abbasi Revised Date Saved: 02/12/2018 11:05 am [facility] Main OR Preoperative Recordo n 02-12-2018 Main OR Preoperative Record Holding Area Document Type FT Summary Primary Physician: Hardeep Fraga DO Finalized Date/Time: 02/12/18 07:26:59 Pt. Name: PANKAJ PAYNE/Sex: 1945 Male Med Rec #: [id number] Physician: Hardeep Fraga DO Financial #: [id number] Pt. Type: A Room/Bed: [place] [address] Admit/Disch: 02/11/18 08:31:00 - 02/11/18 12:00:00 Institution: [...] Last Modified By: Be DAMON, BSN, Monika Maribel 02/11/18 08:50:03 Finalized By: HEMANT Macdonald RN, Andrea Document Signatures Signed By: HEMANT Macdonald RN, Andrea 02/12/18 07:26 Normal [facility] History and Physicalon 02-11 History and [...] in the near future.Hardeep Fraga D.O.aekDictated: 02/10/2018 #[id number] 02/11/2018 #[id number]: Hardeep Fraga D.O. [facility] Comment on above: Result Comment: Elec tronically Signed By: Hardeep Fraga DO\.br\Date and Time Signed: 02/11/18 08:10 EST Inpatient Patient Summaryon 02-11-2018 Inpatient [facility] InstructionsP[facility] INFORMATION Name: PANKAJ PAYNE PHYSICIANS Admitting Physician: Hardeep Fraga DOAttending Physician: Hardeep Fraga DO PCP: FRANTZ CONLEY MD BDischarge Diagnosis: Cataract Comment: PATIENT EDUCATION INFORMATIONInstructions:Robert LAMALER- After Surgery Eye (Custom)Medication Leaflets:Follow up:With: Address: When: Hardeep Fraga [facility] [address], [address] [facility], [address] [address] Business (1) Within 1 to 2 days MEDICATION LISTComment: [facility] Main OR Intraoperative Recor don 02-11-2018 Main OR Intraoperative Record IntraOp Document Type FT Summary Primary Physician: Hardeep Fraga DO Finalized Date/Time: 02/11/18 13:09:49 Pt. Name: PANKAJ PAYNE /Sex: 1945 Male Med Rec #: [id number] Physician: Hardeep Fraga DO Financial #: [id number] Pt. Type: A Room/Bed: [place] [address] Admit/Disch: 02/11/18 08:31:00 - 02/11/18 12:00:00 Institution: [...] Arnold Morton Role Performed Surgeon - Primary Baked And Graphite Inspector - Primary Baked And Graphite Inspector - Primary Time In 02/11/18 11:04:00 02/11/18 [...] Rosanna Messina RN, Tiffanie DAMON, Krys Mar PRESS CATCHER/SA, Mayo Silverio PRESS CATCHER, Marisela Rodriguez Time Out Complete 02/11/18 11:08:00 [...] By Rosanna Messina RN, Outcomes Met? Yes Tiffanie DAMON, Arnold Morton Last Modified By: Rosanna Messina RN 02/11/18 11:12:32 Post-Care Text: The patient is free from signs and symptoms of injury related to positioning General Comments: B/L SIDERAILS UP AND BRAKES LOCKED ON EYE CART. MARISOL PRUVIS Patient Care Devices FT Pre-Care Text: Implements [...] safely administered during the perioperative period For [facility] please see scanned medication reconcilliation form for medications used at the field during the procedure. Implant Log FT Pre-Care Text: Records devices implanted during the operative or invasive procedure Entry 1 Implant/Explant Implant Implant Identification Description ROSENDA [id number] 12.50MM Lot Number [id number] 17.50 [[id number]][F] Glass Blower FT-[employer] Catalog ?# [id number] [F] Size 17.5 Expiration Date 09/21/18 Usage Data Implant Site LEFT EYE Quantity 1 Outcomes Met? Yes Last Modified By: Rosanna Messina RN 02/11/18 11:19:54 Post-Care Text: The patient is free from signs and symptoms of injury caused by extraneous objects Case Comments Finalized By: Elayne Agosto CST Document Signatures Signed By: Rosanna Messina RN 02/11/18 11:24 Elayne Agosto CST 02/11/18 13:09 Normal [facility] Main OR PACU II Recordon Main OR PACU II Record PACU Phase II Doc ument Type FT Summary Primary Physician: Hardeep Fraga DO Finalized Date/Time: 02/11/18 12:09:46 Pt. Name: PANKAJ PAYNE/Sex: 1945 Male Med Rec #: [id number] Physician: Hardeep Fraga DO Financial #: [id number] Pt. Type: A Room/Bed: [place] [address] Admit/Disch: 02/11/18 08:31:00 - Institution: Case Times [...] By: Lisa Rubi RN 02/11/18 12:09 Normal [facility] Patient Education - Texton 1 04-13-2017 Patient Education - Text [facility] Progress Note-Physicianon Protein mass conc Patient: PANKAJ [...] Blood Loss: 0 ml. Complications: None. Normal [facility] Comment on above: Result Comment: Elec tronically Signed By: Hardeep Fraga DO\.br\Date and Time Signed: 02/11/18 11:23 EST Vital Signs Date Time Vital Sign Value Performing Clinician Facility 11-11-2024 13:33-0400 Body height 157.48 cm Frantz Conley II Work Phone: [facility] 11-11-2024 13:33-0400 Body mass index (BMI) [Ratio] 32.3 kg/m2 Frantz Conley II Work Phone: [facility] 11-11-2024 13:33-0400 Body weight 80.28 kg Frantz Conley II Work Phone: [facility] 11-11-2024 13:33-0400 Diastolic blood pressure 79 mm[Hg] Frantz Conley II Work Phone: [facility] 11-11-2024 13:33-0400 Heart rate 61 /min Frantz Conley II Work Phone: [facility] 11-11-2024 13:33-0400 Systolic blood pressure 120 mm[Hg] Frantz Conley II Work Phone: [facility] 10-20-2024 14:31-0400 Body height 166.4 cm Rosanna Hemmer PA Work Phone: [facility] 10-20-2024 14:31-0400 Body mass index (BMI) [Ratio] 29.24 kg/m2 Rosanna Hemmer PA Work Phone: [facility] 10-20-2024 14:31-0400 Body weight 80.92 kg Rosanna Hemmer PA Work Phone: [facility] 10-20-2024 14:31-0400 Diastolic blood pressure 84 mm[Hg] Rosanna Hemmer PA Work Phone: [facility] 10-20-2024 14:31-0400 Heart rate 69 /min Rosanna Hemelpidio PA Work Phone: [facility] 10-20-2024 14:31-0400 Respiratory rate 16 /min Rosanna Hemmer PA Work Phone: [facility] 10-20-2024 14:31-0400 SaO2% (BldA) [Mass fraction] 96 % Rosanna Hawthorneelpidio PA Work Phone: [facility] 10-20-2024 14:31-0400 Systolic blood pressure 132 mm[Hg] Rosanna Hawthorneelpidio PA Work Phone: [facility] 10-05-2024 11:04-0400 Body height 166.4 cm Frantz Conley MD Work Phone: [facility] 10-05-2024 11:04-0400 Body mass index (BMI) [Ratio] 29.66 kg/m2 Frantz Conley MD Work Phone: [facility] 10-05-2024 11:04-0400 Body weight 82.1 kg Frantz Conley MD Work Phone: [facility] 10-05-2024 11:04-0400 Diastolic blood pressure 62 mm[Hg] Frantz Conley MD Work Phone: [facility] 10-05-2024 11:04-0400 Heart rate 48 /min Frantz Conley MD Work Phone: [facility] 10-05-2024 11:04-0400 SaO2% (BldA) [Mass fraction] 97 % Frantz Conley MD Work Phone: [facility] 10-05-2024 11:04-0400 Systolic blood pressure 110 mm[Hg] Frantz Conley MD Work Phone: [facility] 09-08-2024 14:56-0400 Body height 165.1 cm Crescencio Marin DO Work Phone: [facility] 09-08-2024 14:56-0400 Body mass index (BMI) [Ratio] 30.29 kg/m2 Crescencio Marin DO Work Phone: [facility] 09-08-2024 14:56-0400 Body weight 82.56 kg Crescencio Marin DO Work Phone: [facility] 09-08-2024 14:56-0400 Diastolic blood pressure 68 mm[Hg] Crescencio Marin DO Work Phone: [facility] 09-08-2024 14:56-0400 Heart rate 58 /min Crescencio Marin DO Work Phone: [facility] 09-08-2024 14:56-0400 Systolic blood pressure 122 mm[Hg] Crescencio Marin DO Work Phone: [facility] 04-30-2024 13:05-0500 Body height 157.48 cm Frantz Conley II Work Phone: [facility] 04-30-2024 13:05-0500 Body mass index (BMI) [Ratio] 32 kg/m2 Frantz Conley II Work Phone: [facility] 04-30-2024 13:05-0500 Body weight 79.37 kg Frantz Conley II Work Phone: [facility] 03-12-2024 10:59-0500 Body height 166.4 cm Frantz Conley MD Work Phone: [facility] 03-12-2024 10:59-0500 Body mass index (BMI) [Ratio] 29.17 kg/m2 Frantz Conley MD Work Phone: [facility] 03-12-2024 10:59-0500 Body weight 80.74 kg Frantz Conley MD Work Phone: [facility] 03-12-2024 10:59-0500 Diastolic blood pressure 66 mm[Hg] Frantz Conley MD Work Phone: [facility] 03-12-2024 10:59-0500 Heart rate 56 /min Frantz Conley MD Work Phone: [facility] 03-12-2024 10:59-0500 SaO2% (BldA) [Mass fraction] 98 % Frantz Conley MD Work Phone: [facility] 03-12-2024 10:59-0500 Systolic blood pressure 122 mm[Hg] Frantz Conley MD Work Phone: [facility] 01-01-2024 11:24-0400 Heart rate 52 /min Crescencio Liaodon Work Phone: [facility] 01-01-2024 11:16-0400 Body height 165.1 cm Crescencio Marin DO Work Phone: [facility] 01-01-2024 11:16-0400 Body mass index (BMI) [Ratio] 29.09 kg/m2 Crescencio Marin DO Work Phone: [facility] 01-01-2024 11:16-0400 Body weight 79.29 kg Crescencio Marin DO Work Phone: [facility] 01-01-2024 11:16-0400 Diastolic blood pressure 60 mm[Hg] Crescencio Tomas Work Phone: [facility] 01-01-2024 11:16-0400 Systolic blood pressure 118 mm[Hg] Crescencio Marin DO Work Phone: [facility] 10-23-2023 11:17-0400 Diastolic blood pressure 84 mm[Hg] LIBBY Conley Work Phone: [facility] 10-23-2023 11:17-0400 Heart rate 70 /min LIBBY Conley Work Phone: [facility] 10-23-2023 11:17-0400 Respiratory rate 18 /min LIBBY Conley Work Phone: [facility] 10-23-2023 11:17-0400 SaO2% (BldA) [Mass fraction] 98 % II Frantz Conley Work Phone: [facility] 10-23-2023 11:17-0400 Systolic blood pressure 146 mm[Hg] LIBBY Conley Work Phone: [facility] 10-23-2023 09:10-0400 Body height 157.48 cm II Frantz Conley Work Phone: [facility] 10-23-2023 09:10-0400 Body weight 78.01 kg II Frantz Conley Work Phone: [facility] 09-17-2023 11:02-0400 Body height 165.1 cm II Frantz Conley Work Phone: [facility] 09-17-2023 11:02-0400 Body mass index (BMI) [Ratio] 28.8 kg/m2 II Frantz Conley Work Phone: [facility] 09-17-2023 11:02-0400 Body weight 78.47 kg II Frantz Conley Work Phone: [facility] 09-17-2023 11:02-0400 Diastolic blood pressure 67 mm[Hg] II Frantz Conley Work Phone: [facility] 09-17-2023 11:02-0400 Heart rate 53 /min II Frantz Conley Work Phone: [facility] 09-17-2023 11:02-0400 Systolic blood pressure 114 mm[Hg] II Frantz Conley Work Phone: [facility] 06-20-2023 10:01-0400 Diastolic blood pressure 68 mm[Hg] Crescencio Marin DO Work Phone: [facility] 06-20-2023 10:01-0400 Heart rate 63 /min Crescencio Marin DO Work Phone: [facility] 06-20-2023 10:01-0400 Systolic blood pressure 126 mm[Hg] Crescencio Marin DO Work Phone: [facility] 06-20-2023 10:00-0400 Body height 165.1 cm Crescencio Marin DO Work Phone: [facility] 06-20-2023 10:00-0400 Body mass index (BMI) [Ratio] 30.29 kg/m2 Crescencio Marin DO Work Phone: [facility] 06-20-2023 10:00-0400 Body weight 82.56 kg Crescencoi Marin DO Work Phone: [facility] 05-08-2023 10:30-0500 Body height 166.4 cm Frantz Conley MD Work Phone: [facility] 05-08-2023 10:30-0500 Body mass index (BMI) [Ratio] 29.66 kg/m2 Frantz Conley MD Work Phone: [facility] 05-08-2023 10:30-0500 Body weight 82.1 kg Frantz Conley MD Work Phone: [facility] 05-08-2023 10:30-0500 Diastolic blood pressure 66 mm[Hg] Frantz Conley MD Work Phone: [facility] 05-08-2023 10:30-0500 Heart rate 52 /min Frantz Conley MD Work Phone: [facility] 05-08-2023 10:30-0500 SaO2% (BldA) [Mass fraction] 99 % Frantz Conley MD Work Phone: [facility] 05-08-2023 10:30-0500 Systolic blood pressure 120 mm[Hg] Frantz Conley MD Work Phone: [facility] 09-28-2022 10:27-0400 Body temperature 97.8 [degF] II Frantz Conley Work Phone: [facility] 09-28-2022 10:27-0400 Body weight 81.19 kg II Frantz Conley Work Phone: [facility] 09-28-2022 10:27-0400 Diastolic blood pressure 61 mm[Hg] II Frantz Conley Work Phone: [facility] 09-28-2022 10:27-0400 Heart rate 39 /min II Frantz Conley Work Phone: [facility] 09-28-2022 10:27-0400 Respiratory rate 16 /min II Frantz Conley Work Phone: [facility] 09-28-2022 10:27-0400 SaO2% (BldA) [Mass fraction] 97 % II Frantz Conley Work Phone: [facility] 09-28-2022 10:27-0400 Systolic blood pressure 143 mm[Hg] II Frantz Conley Work Phone: [facility] 09-18-2022 10:00-0400 Body height 165.1 cm Mick Branch Other [facility] [employer] Other 09-18-2022 10:00-0400 Body mass index (BMI) [Ratio] 29.12 kg/m2 Mick Branch Other [employer] Other 09-18-2022 10:00-0400 Body weight 79.38 kg Mick Branch Other [employer] Other 09-18-2022 10:00-0400 Diastolic blood pressure 76 mm[Hg] Mick Branch Other [employer] Other 09-18-2022 10:00-0400 Systolic blood pressure 113 mm[Hg] Mick Branch Other [employer] Other 08-08-2022 13:49-0400 Body height 165.1 cm II Frantz Conley Work Phone: [facility] 09-19-2021 13:10-0400 Diastolic blood pressure 64 mm[Hg] II Frantz Conley Work Phone: [facility] 09-19-2021 13:10-0400 Heart rate 68 /min II Frantz Conley Work Phone: [facility] 09-19-2021 13:10-0400 Respiratory rate 16 /min II Frantz Conley Work Phone: [facility] 09-19-2021 13:10-0400 SaO2% (BldA) [Mass fraction] 96 % II Frantz Conley Work Phone: [facility] 09-19-2021 13:10-0400 Systolic blood pressure 119 mm[Hg] II Frantz Conley Work Phone: [facility] 09-19-2021 11:54-0400 Body height 165.1 cm II Frantz Conley Work Phone: [facility] 09-19-2021 11:54-0400 Body mass index (BMI) [Ratio] 29.9 kg/m2 II Frantz Conley Work Phone: [facility] 09-19-2021 11:54-0400 Body temperature 98.3 [degF] II Frantz Conley Work Phone: [facility] 09-19-2021 11:54-0400 Body weight 81.64 kg II Frantz Conley Work Phone: [facility] 09-13-2021 15:15-0400 Body height 165.1 cm Mick Branch Other [facility] [employer] Other 09-13-2021 15:15-0400 Body mass index (BMI) [Ratio] 29.95 kg/m2 Mick Branch Other [facility] [employer] Other 09-13-2021 15:15-0400 Body weight 81.65 kg Mick Ditty Other [facility] [employer] Other 08-17-2021 12:00-0400 Body temperature 98.01 [degF] Leonard Johnson MD [facility] 08-17-2021 11:15-0400 Heart rate 69 /min Leonard Johnson MD [facility] 08-17-2021 11:15-0400 Respiratory rate 19 /min [facility] 08-17-2021 11:15-0400 SaO2% (BldA) [Mass fraction] 98 % Leonard Johnson MD [facility] 08-17-2021 10:00-0400 Diastolic blood pressure 80 mm[Hg] Leonard Johnson MD [facility] 08-17-2021 10:00-0400 Systolic blood pressure 139 mm[Hg] Leonard Johnson MD [facility] 08-16-2021 21:48-0400 Body height 165.1 cm Leonard Johnson MD [facility] 08-16-2021 21:48-0400 Body mass index (BMI) [Ratio] 30.05 kg/m2 Leonard Johnson MD [facility] 08-16-2021 21:48-0400 Body weight 81.92 kg Leonard Johnson MD [facility] 07-11-2021 11:45-0400 Body height 165.1 cm Mick Branch Other [employer] Other 07-11-2021 11:45-0400 Body mass index (BMI) [Ratio] 30.45 kg/m2 Mick Branch Other [employer] Other 07-11-2021 11:45-0400 Body weight 83.01 kg Mick Branch Other [employer] Other 07-11-2021 11:45-0400 Diastolic blood pressure 77 mm[Hg] Mick Branch Other [employer] Other 07-11-2021 11:45-0400 Systolic blood pressure 126 mm[Hg] Mick Branch Other [employer] Other Encounters Encounter Date Encounter Type Care Provider Facility Start: 12-07-2024 End: 12-07-2024 Clinisync Result Encounter Generic External Data Provider [facility] External Department Unsolicited Start: 12-07-2024 End: 12-07-2024 Clinisync Result Encounter Generic External Data Provider [facility] External Department Unsolicited Start: 11-11-2024 End: 11-11-2024 ambulatory Frantz Conley II Work Phone: [facility] Work Phone: Start: 11-11-2024 End: 11-11-2024 Patient encounter procedure Mick Branch MD -[facility] Work Phone: Start: 11-02-2024 End: 11-02-2024 Patient encounter procedure Mick Branch MD -[facility] Work Phone: Start: 11-02-2024 End: 11-02-2024 ambulatory Frantz Conley II Work Phone: [facility] Work Phone: Start: 10-20-2024 End: 10-20-2024 Patient encounter procedure Rosanna MIRZA Work Phone: [facility] Comment on above: Medicare annual well ness visit, subsequent (Primary Dx); ACP (advance care planning); Chronic insomnia; Other chronic pain; Benign essential HTN ; Benign hypertensive heart and CKD, 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), w CHF (HCC); Coronary artery disease involving lumbee coronary artery of lumbee heart without angina pectoris ; Dilatation of aorta; History of coronary artery stent placement; PVCs (premature ventricular contractions); Sinus arrhythmia; Sinus bradycardia; Abnormal LFTs; Diverticulosis of colon; Gastroesophageal reflux disease without esophagitis; 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); Cervical spondylolysis; Muscle cramps; Acquired hypothyroidism ; BMI 29.0-29.9,adult; Vitamin D deficiency; Iron deficiency anemia, unspecified iron deficiency anemia type; Pancytopenia, acquired ([facility]-HCC); Former cigarette smoker; Mixed hyperlipidemia ; Situational anxiety; Unsteadiness on feet; Esophageal varices without bleeding (HCC); Other secondary pulmonary hypertension (HCC); Grade II diastolic dysfunction Start: 10-20-2024 End: 10-20-2024 ambulatory ROSANNA DALY Not Available Start: 10-20-2024 End: 10-20-2024 Bamboo flowsheet Rosanna Daly PA Work Phone: [facility] Start: 10-20-2024 End: 10-20-2024 Bamboo flowsheet Rosanna Daly PA Work Phone: [facility] Start: 10-05-2024 End: 10-05-2024 Office outpatient visit 25 minutes Frantz Conley MD Work Phone: [facility] Comment on above: Sinus bradycardia (P rimary Dx); PVCs (premature ventricular contractions); Coronary artery disease involving lumbee coronary artery of lumbee heart without angina pectoris ; Liver cirrhosis [...] 15 minutes Crescencio Marin DO Work Phone: [facility] Comment on above: ASHD (arteriosclerot ic heart disease); History of coronary artery stent placement; PVC (premature ventricular contraction); BMI 30.0-30.9,adult; Former cigarette smoker; Hyperlipidemia, unspecified hyperlipidemia type Start: 09-08-2024 End: 09-08-2024 ambulatory [facility] Start: 05-21-2024 End: 05-21-2024 Patient encounter procedure Frantz Conley II Work Phone: [facility] Main [place] Work Phone: Start: 05-21-2024 End: 05-21-2024 ambulatory Frantz Conley II Work Phone: [facility] Work Phone: Start: 04-30-2024 End: 04-30-2024 ambulatory Frantz Conley II Work Phone: [facility] Work Phone: Start: 04-30-2024 End: 04-30-2024 Patient encounter procedure Frantz Conley II Work Phone: [facility] [place] [place] Work Phone: Start: 04-22-2024 End: 04-22-2024 Refill Day Saturday OPINION POLLS SURVEY WORKER Work Phone: [facility] Comment on above: Mixed hyperlipidemia (CMS/HCC) (Primary Dx) Start: 04-21-2024 End: 04-21-2024 Clinisync Result Encounter Generic External Data Provider [facility] Unsolicited Start: 04-21-2024 End: 04-21-2024 Clinisync Result Encounter Generic External Data Provider [facility] External Department Unsolicited Start: 03-12-2024 End: 03-12-2024 Bamboo flowsheet Frantz Conley MD Work Phone: [facility] Start: 03-12-2024 End: 03-12-2024 Bamboo flowsheet Frantz Conley MD Work Phone: [facility] Start: 03-12-2024 End: 03-12-2024 Office outpatient visit 25 minutes Frantz Conley MD Work Phone: [facility] Comment on above: Benign essential HTN (CMS/HCC) (Primary Dx); Flu vaccine need; Coronary artery disease involving lumbee coronary artery of lumbee heart without angina pectoris (CMS/HCC); Mixed hyperlipidemia (CMS/HCC); Acquired hypothyroidism (CMS/HCC); Prostate cancer screening Start: 03-12-2024 End: 03-12-2024 ambulatory FRANTZ CONLEY Not Available Start: 01-01-2024 End: 01-01-2024 ambulatory [facility] Ambulatory Start: 01-01-2024 End: 01-01-2024 Office outpatient visit 25 minutes Crescencio Marin DO Work Phone: [facility] Comment on above: ASHD (arteriosclerot ic [...] / Non-visit II Montrell Conley Work Phone: [facility] Work Phone: Start: 10-23-2023 End: 10-23-2023 Admission to same day surgery center II Frantz Conley Work Phone: [facility]Dig[facility] Work Phone: Start: 10-23-2023 End: 10-23-2023 ambulatory II Frantz Conley Work Phone: [facility] Work Phone: Start: 10-01-2023 End: 10-01-2023 ambulatory II Frantz Conley Work Phone: [facility] Work Phone: Start: 10-01-2023 End: 10-01-2023 Patient encounter procedure II Frantz Conley Work Phone: [facility]-Ultrasound [facility] [place] Work Phone: Start: 09-17-2023 End: 09-17-2023 ambulatory II Frantz Conley Work Phone: [facility] Work Phone: Start: 09-17-2023 End: 09-17-2023 Patient encounter procedure II Frantz Conley Work Phone: [facility]-Lab [place] Work Phone: Start: 06-20-2023 End: 06-20-2023 Office outpatient visit 40 minutes Crescencio Aníbal Tomas JEAN Work Phone: [facility] Comment on above: ASHD (arteriosclerot ic heart disease); History of coronary artery stent placement; Ascending aorta dilation (CMS/HCC); Iron deficiency anemia, unspecified iron deficiency anemia type; PVC (premature ventricular contraction); Former cigarette smoker Start: 06-05-2023 End: 06-05-2023 ambulatory II Frantz Conley Work Phone: [facility] Work Phone: Start: 06-05-2023 End: 06-05-2023 Patient encounter procedure II Frantz Jarvis Work Phone: [facility]-Ultrasound [facility] [place] Work Phone: Start: 05-08-2023 Bamboo flowsheet Frantz [...] 05-01-2023 ambulatory MD Jose Manning Work Phone: [facility] Work Phone: Start: 05-01-2023 End: 05-01-2023 Departed Referred MD Jose Manning Work Phone: [facility]-LAB Path Spec [facility] Start: 10-04-2022 End: 10-04-2022 ambulatory II Fratnz Conley Work Phone: [facility] Work Phone: Start: 10-04-2022 End: 10-04-2022 Patient encounter procedure II Frantz Conley Work Phone: [facility]-Ultrasound [facility] [place] Work Phone: Start: 09-28-2022 End: 09-28-2022 ambulatory II Frantz Conley Work Phone: [facility] Work Phone: Start: 09-28-2022 End: 09-28-2022 Registered Recurring II Frantz Conley Work Phone: [facility]-Cancer Center Work Phone: Start: 09-18-2022 End: 09-18-2022 ambulatory Mick Branch Other [employer] Other Start: 09-18-2022 Patient encounter procedure Mick Branch [facility] Start: 11-08-2021 End: 11-09-[address] KARL MENON Facility:[facility] Start: 11-06-2021 End: 11-06-2021 Patient encounter procedure II Frantz Conley Work Phone: [facility]-Respiratory Therapy Start: 10-10-2021 End: 10-10-2021 Patient encounter procedure II Frantz Conley Work Phone: [facility] C[facility]-CT Scan [place] Start: 09-20-2021 End: 09-20-2021 Patient encounter procedure II Frantz Conley Work Phone: [facility]-Ultrasound [facility] [place] Start: 09-19-2021 End: 09-19-2021 Admission to same day surgery center II Frantz Conley Work Phone: [facility]Dig[facility] Start: 09-15-2021 End: 09-15-2021 Patient encounter procedure II Frantz Conley Work Phone: [facility] Start: 09-13-2021 End: 09-13-2021 ambulatory Mick Branch Other [employer] Other Start: 09-13-2021 Patient encounter procedure Mick Branch [facility] Start: 08-16-2021 End: 08-17-2021 Evaluation and management of inpatient SHANTANU Belcher [facility] Start: 08-16-2021 End: 08-17-2021 Evaluation and management of inpatient Leonard Johnson MD [facility] 1 Comment on above: Subarachnoid hemorrh age following injury, no loss of consciousness, initial encounter ([facility]) (Primary Dx); Facial laceration, initial encounter Start: 08-16-2021 End: 08-16-2021 ambulatory KEILY RENTERIA Facility: Start: 07-12-2021 End: 07-13-2021 ambulatory MICK BRANCH Facility:[facility] Start: 07-11-2021 End: 07-11-2021 ambulatory Mick Branch Other [employer] Other Start: 07-11-2021 FQHC visit new patient Mick Branch [facility] Start: 03-01-2021 End: 03-01-[address] FRANTZ CONLEY Facility: Start: 02-03-2021 End: 02-03-[address] FRANTZ CONLEY Facility: Start: 10-30-2018 End: 10-31-2018 Patient encounter procedure JOSIAH SCHAFER Facility:[facility] Start: 02-28-2018 End: 03-01-2018 Patient encounter procedure INDIA ANDREA Facility:[facility] Start: 02-25-2018 End: 02-25-2018 Patient encounter procedure Hardeep Fraga Facility:[facility] Start: 02-11-2018 End: 02-11-2018 Patient encounter procedure Hardeep Fraga Facility:[facility] Procedures Date Procedure Procedure Detail Performing Clinician Start: 12-07-2024 ALL CBC WITH AUTO DIFF Generic External Data Provider Start: 10-01-2024 ALL BASIC METABOLIC PANEL Generic Secondary Education Professor al Data Provider Start: 10-01-2024 ALL LIPID [...] routine ecg w/least 12 lds w/i&r Crescencio Liaodon DO Work Phone: Start: 12-05-2023 ALL CBC WITH AUTO DIFF Generic External Data Provider Start: 10-23-2023 Esophagogastroduodenoscopy II Frantz Rehan roman Work Phone: Start: 10-01-2023 Ultrasonography of liver II Frantz Conley Work Phone: Start: 06-20-2023 History of placement of stent for coronary artery disease History of coronary artery stent placement Crescencio Aníbal Tomas JEAN Work Phone: Start: 06-20-2023 Ecg routine ecg w/least 12 lds w/i&r Crescencio Liaodon DO Work Phone: Start: 06-05-2023 US scan [...] 08-16-2021 Ct head/brain w/o contrast material Paramjit hew T Slack DO Work Phone: History of placement of [...] Author Start: 04-29-2028 Lipid panel Lipid Panel [facility] Start: 10-20-2025 Medicare Annual Wellness (AWV) Medicare Annual Wellness (AWV) [facility] Start: 09-14-2025 End: 09-14-2025 Patient encounter procedure 09/14/2025 2:00 PM EDT Office Visit [facility] [address] [phone] Crescencio Marin DO [address] [facility] [address] [place], [place] [id number]- [facility] Start: 12-07-2024 End: 12-07-2024 Patient encounter procedure [facility] Start: 11-23-2024 Influenza vaccination Influenza Vaccine (#1) [facility] Start: 10-20-2024 Medicare Annual Wellness (AWV) Medicare Annual Wellness (AWV) [facility] Start: 10-20-2024 End: 10-20-2024 Patient encounter procedure [facility] Comment on above: Arrived Start: 10-05-2024 End: 10-05-2024 Patient encounter procedure 10/05/2024 11:00 AM EDT Office Visit [facility] [address] [place] [id number] Frantz Conley MD [address] [place] [address] [facility] Start: 09-08-2024 End: 09-08-2024 Patient encounter procedure 09/08/2024 3:00 PM EDT Office Visit [facility] [address] [place] [address] Crescencio Marin DO [address] [place] [address] [facility] Start: 09-08-2024 End: 09-08-2025 Alanine aminotransferase [Enzymatic activity/volume] in Serum or Plasma by With P-5'-P Alanine Aminotransferase Lab Routine ASHD (arteriosclerotic heart disease) Hyperlipidemia, unspecified hyperlipidemia type Expected: 09/08/2024 (Approximate), Expires: 09/08/2025 [facility] Service Area Work Phone: Comment on above: Expected: 09/08/2024 (Approximate), Expi res: 09/08/2025 Start: 09-08-2024 End: 09-08-2025 Aspartate aminotransferase [Enzymatic activity/volume] in Serum or Plasma by With P-5'-P Aspartate Aminotransferase Lab Routine ASHD (arteriosclerotic heart disease) Hyperlipidemia, unspecified hyperlipidemia type Expected: 09/08/2024 (Approximate), Expires: 09/08/2025 [facility] Work Phone: Comment on above: Expected: 09/08/2024 (Approximate), Expi res: 09/08/2025 Start: 09-08-2024 End: 09-08-2025 Basic metabolic 2000 panel - Serum or Plasma Basic Metabolic Panel Lab Routine ASHD (arteriosclerotic heart disease) PVC (premature ventricular contraction) Expected: 09/08/2024 (Approximate), Expires: 09/08/2025 [facility] Work Phone: Comment on above: Expected: 09/08/2024 (Approximate), Expi res: 09/08/2025 Start: 09-08-2024 End: 09-08-2025 Lipid 1996 panel - Serum or Plasma Lipid Panel Lab Routine ASHD (arteriosclerotic heart disease) Hyperlipidemia, unspecified hyperlipidemia type Expected: 09/08/2024 (Approximate), Expires: 09/08/2025 [facility] Work Phone: Comment on above: Expected: 09/08/2024 (Approximate), Expi res: 09/08/2025 Start: 04-30-2024 Kqzdx-1-epsnudsrzle.tumor marker [Mass/volume] in Serum or Plasma [facility] Start: 03-12-2024 End: 03-12-2025 Lipid 1996 panel - Serum or Plasma Lipid panel Lab Routine Mixed hyperlipidemia (CMS/HCC) Expected: 03/12/2024 (Approximate), Expires: 03/12/2025 [facility] Comment on above: Expected: 03/12/2024 (Approximate), Expi res: 03/12/2025 Start: 03-12-2024 End: 03-12-2025 TSH W/REFLEX TO FT4 TSH W/REFLEX TO FT4 Lab Routine Acquired hypothyroidism (CMS/HCC) Expected: 03/12/2024 (Approximate), Expires: 03/12/2025 [facility] Comment on above: Expected: 03/12/2024 (Approximate), Expi res: 03/12/2025 Start: 03-12-2024 End: 03-12-2024 Patient encounter procedure [facility] Comment on above: Arrived Start: 12-25-2023 End: 12-25-2023 Patient encounter procedure 12/25/2023 10:20 AM EDT Office Visit [facility] [address] [facility] [address] [place] [address] Crescencio Marin DO [address] [facility] [address] [place] [address] [facility] Start: 11-24-2023 COVID-19 Vaccine ( season) COVID-19 Vaccine ( season) [facility] Start: 11-24-2023 COVID-19 Vaccine () COVID-19 Vaccine () [facility] Start: 11-24-2023 Influenza vaccination Influenza Vaccine (#1) [facility] Start: 11-06-2023 End: 11-06-2023 Patient encounter procedure 11/06/2023 11:00 AM EDT Office Visit [facility] [address] [facility] [address] [place] [address] Frantz Conley MD [address] [facility] [address] [place] [address] [facility] Start: 10-23-2023 [facility] Start: 10-21-2023 End: 10-21-2023 Patient encounter procedure 10/21/2023 11:00 AM EDT Office Visit [facility] [address] [facility] [address] [place] [address] Frantz Conley MD [address] [facility] [address] [place] [address] [facility] Start: 09-17-2023 Tudmu-2-lpymcobxmar.tumor marker [Mass/volume] in Serum or Plasma [facility] Start: 08-23-2023 Medicare Annual Wellness (AWV) Medicare Annual Wellness (AWV) [facility] Start: 06-26-2023 End: 06-26-2023 Professional / ancillary services management 06/26/2023 10:00 AM EDT Ancillary Procedure [facility] [address] [facility] [address] [place] [address] [facility] Start: 06-20-2023 End: 06-19-2024 Holter monitor study Holter Or Event House Nurse Cardiac Services Routine PVC (premature ventricular contraction) Expected: 06/20/2023 (Approximate), Expires: 06/19/2024 [facility] Service Area Work Phone: Comment on above: Expected: 06/20/2023 (Approximate), Expi res: 06/19/2024 Start: 06-10-2023 End: 06-10-2023 Patient encounter procedure 06/10/2023 10:30 AM EDT Office Visit [facility] [address] [place] [address] Frantz Conley MD [address] [place] [address] [facility] Start: 05-08-2023 End: 05-08-2024 US Abdomen limited [facility] Work Phone: Comment on above: Expected: 05/08/2023, Expires: Start: 05-08-2023 End: 05-08-2023 Patient encounter procedure 05/08/2023 10:30 AM EST Office Visit [facility] [address] [place] [address] Frantz Conley MD [address] [place] [address] Arrived [facility] Comment on above: Arrived Start: 11-23-2022 COVID-19 Vaccine () COVID-19 Vaccine ( season) [facility] Start: 11-08-2022 Echocardiography Echocardiogram [facility] Start: 05-01-2022 Lipid panel Lipids [facility] Start: 09-19-2021 [facility] Work Phone: Start: 08-24-2021 End: 08-17-2022 CT HEAD WO CONTRAST CT HEAD WO CONTRAST Imaging Routine Subarachnoid hemorrhage following injury, no loss of consciousness, initial encounter (HCC) Expected: 08/24/2021, Expires: 08/17/2022 [facility] Work Phone: Comment on above: Expected: 08/24/2021, Expires: 3 Start: 2021 RSV High Risk: (Elderly (60+) or Population) (1 - 1-dose 75+ series) RSV High Risk: (Elderly (60+) or Population) (1 - 1-dose 75+ series) [facility] Start: 09-30-2019 Pneumococcal 65+ years Vaccine (2 - PCV) Pneumococcal 65+ years Vaccine (2 - PCV) [facility] Start: 09-30-2019 Pneumococcal vaccination Pneumococcal Vaccine (2 of 2 - PCV) [facility] Start: 09-30-2019 Pneumococcal Vaccine: 65+ Years (2 - PCV) Pneumococcal Vaccine: 65+ Years (2 - PCV) [facility] Start: 09-30-2019 Pneumococcal Vaccine: 65+ Years (2 of 2 - PCV) Pneumococcal Vaccine: 65+ Years (2 of 2 - PCV) [facility] Start: 2006 Hepatitis B Vaccines (1 of 3 - Risk 3-dose series) Hepatitis B Vaccines (1 of 3 - Risk 3-dose series) [facility] Start: 2006 RSV patients and/or patients aged 60+ years (1 - 1-dose 60+ series) RSV patients and/or patients aged 60+ years (1 - 1-dose 60+ series) [facility] Start: 07-31-1991 Screening for malignant neoplasm of colon [facility] Start: 1968 DTaP/Tdap/Td Vaccines (1 - Tdap) DTaP/Tdap/Td Vaccines (1 - Tdap) [facility] Start: 1965 DTaP/Tdap/Td vaccine (1 - Tdap) DTaP/Tdap/Td vaccine (1 - Tdap) [facility] Start: 1965 Hepatitis A Vaccines (1 of 2 - Risk 2-dose series) Hepatitis A Vaccines (1 of 2 - Risk 2-dose series) [facility] Start: 1964 Diabetes mellitus screening Diabetes Screening [facility] Start: 1964 Hepatitis C screening [facility] Start: 1958 Depression Screen Depression Screen [facility] Start: 1946 Creatinine measurement Creatinine Level [facility] Start: 1946 Medicare Annual Wellness Visit Medicare Annual Wellness Visit (AWV) [facility] Start: 1946 Potassium measurement Potassium Level [facility] Start: 1946 Thyroid stimulating hormone measurement TSH Level [facility] Oxygen therapy [[facility] Data Set] Initiate Oxygen Therapy Protocol Respiratory Care Routine As Needed until discontinued starting 08/16/2021 [employer] Work Phone: Comment on above: As Needed until discontinued starting Patient Education Hemorrhoids Co ross polyps Esophageal varices Diverticulosis Know your Meds [facility] Work Phone: Prostate specific Ag [Mass/volume] in Serum or Plasma PSA Lab Routine Prostate cancer screening Ordered: 03/12/2024 [facility] Work Phone: Comment on above: Ordered: 03/12/2024 End: 08-16-2021 Speech and language therapy regime Speech language pathology evaluation [employer] Routine One Time for 1 Occurrences starting 08/16/2021 until 08/16/2021 [employer] Work Phone: Comment on above: One Time for 1 Occurrences starting 07/24 until 08/16/2021 US Abdomen limited [facility] US Liver [facility] Immunizations Immunization Date Immunization Notes Care Provider [facility] 03-12-2024 Influenza, High-dose Seasonal, Quadrivalent, Preservative Free Frantz Conley MD Work Phone: [facility] 03-12-2024 influenza virus vacc ine, unspecified formulation Generic Provider [facility] 12-15-2023 influenza, high dose seasonal, preservative-free Generic Provider [facility] 01-04-2023 Influenza, Seasonal, Quadrivalent, Adjuvanted Frantz Conley MD Work Phone: [facility] 01-04-2023 influenza virus vacc ine, unspecified formulation Generic Provider [facility] 03-21-2022 Influenza, High-dose Seasonal, Quadrivalent, Preservative Free Frantz Conley MD Work Phone: [facility] Work Phone: 03-01-2021 COVID-19 Ad26.COV2.S (Caleb) II Frantz Conley Work Phone: [facility] 01-06-2021 influenza, high dose seasonal, preservative-free Frantz Conley MD Work Phone: [facility] 01-06-2021 Influenza, High-dose Seasonal, Quadrivalent, Preservative Free Frantz Conley MD Work Phone: [facility] 05-26-2020 COVID-19 mRNA-1273 (Moderna) II Frantz Conley Work Phone: [facility] 04-28-2020 COVID-19 mRNA-1273 (Moderna) II Frantz Conley Work Phone: [facility] 01-06-2020 Influenza, High-dose Seasonal, Quadrivalent, Preservative Free Frantz Conley MD Work Phone: [facility] 08-18-2019 zoster vaccine recombinant Frantz Conley MD Work Phone: [facility] 04-10-2019 zoster vaccine recombinant Frantz Conley MD Work Phone: [facility] 02-06-2019 influenza, high dose seasonal, preservative-free Frantz Conley MD Work Phone: [facility] 09-29-2018 pneumococcal polysaccharide vaccine, 23 valent Frantz Conley MD Work Phone: [facility] 01-14-2018 Influenza, High-dose Seasonal, Quadrivalent, Preservative Free Frantz Conley MD Work Phone: [facility] 12-03-2016 Influenza, High-dose Seasonal, Quadrivalent, Preservative Free Frantz Conley MD Work Phone: [facility] 03-28-2015 influenza, seasonal, injectable, preservative free Frantz Conley MD Work Phone: [facility] 01-10-2015 seasonal influenza, intradermal, preservative free Frantz Conley MD Work Phone: [facility] Payers Date Payer Category Payer [facility] of [facility] ( and others) [id number] 2024 Self-pay [id number] 2023 For Life (TFL) F [employer] LIFE [id number] 2022 [employer] ( and others) [id number] 2022 () [id number] 2015 [employer] ( and others) [id number] 2011 Medicare [id number] 1959 [employer] ( and others) [id number] 1959 Medicare [id number] 1946 Unknown [id number] [id number] .727 1946 Unknown [id number] 2.16.840.1.793858.3.579.2 .727 1946 Unknown [id number] 2.16.840.1.551600.3.579.2 .647 1946 Unknown [id number] 2.16.840.1.727257.3.579.2 .647 1946 Unknown [id number] 2.16.840.1.019280.3.579.2 .175 1946 Unknown [id number] 2.16.840.1.117050.3.579.2 .593 1946 Unknown [id number] 2.16.840.1.244132.3.579.2 .593 1946 Unknown [id number] 2.16.840.1.557370.3.579.2 .593 1946 Unknown [id number] 2..840.1.915575.3.579.2 .593 1946 Unknown [id number] 2.840.1.976437.3.579.2 .593 1946 Unknown [id number] 2.16.840.1.157357.3.579.2 .1244 1946 Unknown [id number] 2.840.1.791920.3.579.2 .1244 1946 Unknown [id number] 2.840.1.027796.3.579.2 .1259 1946 Unknown [id number] 2.16.840.1.509552.3.579.2 .1259 1946 Unknown [id number] 2.16.840.1.273971.3.579.2 .1259 Unknown [id number] 2.16.840.1.600429.3.579.2 .531 Unknown [id number] 2.16.840.1.994724.3.579.2 .531 Unknown [id number] 2.16.840.1.353116.3.579.2 .531 Social History Date Type Detail Facility Start: 08-16-2021 Tobacco smoking status [facility] Tobacco smoking consumption unknown [employer] Start: 08-16-2021 End: 09-08-2024 Alcohol intake Lifetime non-drinker (finding) [facility] Phone: Start: 08-16-2021 History SDOH Alcohol Frequency 1 [facility] Phone: Start: 1945 Sex Assigned At Not on file [facility] Phone: Start: 08-06-2021 End: 01-01-2024 Exposure to SARS-CoV-2 (event) Not sure [facility] Phone: Start: 04-15-2023 End: 10-20-2024 Sex Assigned At [facility] Start: 05-10-2021 End: 08-16-2022 Tobacco smoking status MSIS Never smoked tobacco (finding) [facility] Start: 1945 Sex Assigned At Male [facility] Start: 08-16-2022 End: 01-01-2024 Tobacco use and [...] to any clubs or organizations such as methodist groups, unions, fraternal [...] Comment caffeine intake: 1-2 cups per day. [facility] Start: 06-20-2023 End: 01-01-2024 Tobacco smoking status NHIS Ex-smoker [facility] Work Phone: End: 03-25-2003 History of tobacco use Current smoker [facility] Work Phone: End: 03-25-2003 History of tobacco use Cigarette Smoker [facility] Work Phone: Start: 06-29-2023 Gender identity Identifies as male gender (finding) [facility] Work Phone: Start: 06-29-2023 Sexual orientation Heterosexual (finding) [facility] Work Phone: Start: 05-01-2024 Sex Patient sex unknown (finding) [facility] Start: 05-22-2024 Sex Male (finding) [facility] Goals Date Patient Goal Desired Activity /State Functional Status Date Assessment Result Facility 10-20-2024 Patient Health Quest ionnaire 2 item (PHQ-2) [Reported] [facility] 10-05-2024 Patient Health Quest ionnaire 2 item (PHQ-2) [Reported] [facility] Clinical Notes 05-23-2021 to 10-20-2024 HERMES Campa [...] Do you have a medical power of assistant district attorney?: Yes Current Outpatient Medications on File [...] by mouth 1 (one) time each day. [place]-3 Fatty Acids (Fish Oil) 1000 MG capsule [...] essential HTN The patient is seeing a medical technologist chief for this condition, treatment is deferred to that specialist. Correspondence from that specialist and any available testing were reviewed during today's visit. 6. 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 Correspondence from that specialist and any available testing were reviewed during today's visit. 7. Coronary artery disease involving lumbee coronary artery of lumbee heart without angina pectoris The patient is seeing a medical technologist chief for this condition, treatment is deferred to that specialist. Correspondence from that specialist and any available testing were reviewed during today's visit. 8. Dilatation of aorta The patient is seeing a medical technologist chief for this condition, treatment is deferred to that specialist. Correspondence from that specialist and any available testing were reviewed during today's visit. 9. History of coronary artery stent placement The patient is seeing a medical technologist chief for this condition, treatment is deferred to that specialist. Correspondence from that specialist and any available testing were reviewed during today's visit. 10. PVCs (premature ventricular contractions) The patient is seeing a medical technologist chief for this condition, treatment is deferred to that specialist. Correspondence from that specialist and any available testing were reviewed during today's visit. 11. Sinus arrhythmia The patient is seeing a medical technologist chief for this condition, treatment is deferred to that specialist. Correspondence from that specialist and any available testing were reviewed during today's visit. 12. Sinus bradycardia The patient is seeing a medical technologist chief for this condition, treatment is deferred to that specialist. Correspondence from that specialist and any available testing were reviewed during today's visit. 13. Abnormal LFTs The patient is seeing a medical technologist chief for this condition, treatment is deferred to that specialist. Correspondence from that specialist and any available testing were reviewed during today's visit. 14. Diverticulosis of colon The patient is seeing a medical technologist chief for this condition, treatment is deferred to that specialist. Correspondence from that specialist and any available testing were reviewed during today's visit. 15. Gastroesophageal reflux disease without esophagitis The patient is seeing a medical technologist chief for this condition, treatment is deferred to that specialist. Correspondence from that specialist and any available testing were reviewed during today's visit. 16. 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 Correspondence from that specialist and any available testing were reviewed during today's visit. 23. Pancytopenia, acquired (CMS-HCC) The patient is seeing a medical technologist chief for this condition, treatment is deferred to [...] bleeding (HCC) The patient is seeing a medical technologist chief for this condition, treatment is deferred to that specialist. Correspondence from that specialist and any available testing were reviewed during today's visit. 29. Other secondary pulmonary hypertension (HCC) The patient is seeing a medical technologist chief for this condition, treatment is deferred to that specialist. Correspondence from that specialist and any available testing were reviewed during today's visit. 30. Grade II diastolic dysfunction The patient is seeing a medical technologist chief for this condition, treatment is deferred to that specialist. Correspondence from that specialist and any available testing were reviewed during today's visit. Follow up for Appointment As Scheduled. Rosanna MURILLO PA-C documented in this encounter [facility] 10-05-2024 History of Present illness Narrative Images [...] by mouth 1 (one) time each day. 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 - This office visit was spent in consultation regarding the patient's current medical problems, differential diagnoses, testing/imaging results, and treatment options. Greater than 25 minutes was spent in dzia-za-payh consultation and coordination of care. Follow up in about 2 months (around 12/06/2024) for Recheck. documented in this encounter [facility] 09-08-2024 History of Present illness Narrative Chief [...] with PCI of the ostial/proximal circumflex at [facility] he says around 4+ years ago and [...] tablet 1 tablet, Daily fish oil concentrate (Manahawkin-3) 120-180 mg capsule 1,000 mg, Daily levothyroxine [...] Attestation By signing my name below, I, Kina Mcduffie RN , Scribe attest that this documentation [...] discussion and plan. documented in this encounter [facility] Work Phone: 09-08-2024 Instructions Kina Mcduffie [...] on dietary changes. documented in this encounter [facility] Work Phone: 05-21-2024 Radiology Diagnostic study note [facility] [place] [address] Ultrasound Report Signed Patient: Pankaj Payne MR#: [id number] : 1945 Acct:[id number] Age/Sex: 78 / M ADM Date: 5 Loc: Room: Type: [facility] Attending Dr: Mick Branch MD Ordering [...] CIRRHOTIC LIVER WITHOUT MASS.. Impression dictated by: Kartki Claros Jr., D.O.05/21/2024 10:23 AM Dictation Location: [place] [address] Tech: Lizzy Llanes Transcribed By: USMAN 05/21/24 1023 Dictated By: Kartik Claros Jr, DO 05/21/24 1022 Signed By: 05/21/24 1023 [facility] 04-30-2024 Evaluation note Diagnosis Onset Date Resolution [...] Pancytopenia, acquired chronic Fe bruary 2024 12:56pm [facility] Work Phone: 1(409) 968-225712-19-2024 History of Present illness Narrative* Frantz Conley [...] by mouth 1 (one) time each day. [place]-3 Fatty Acids (Fish Oil) 1000 MG capsule [...] cholecystitis 08/13/2022 Anemia CAD (coronary artery disease) ([facility]) Calculus of gallbladder with acute on chronic [...] need - Influenza, high-dose seasonal, quadrivalent, PF (CIS910) (Fluzone High Dose Quad North 0.7mL dose) Coronary artery disease involving lumbee coronary artery of lumbee heart without angina pectoris (CMS/HCC) - The patient is experiencing no symptoms from this condition currently, it is considered medicallycontrolled and no change in current therapies are planned. Mixed hyperlipidemia (CMS/HCC) - Lipid panel; Future Acquired hypothyroidism (CMS/HCC) - TSH W/REFLEX TO FT4; Future Prostate cancer screening - PSA Follow up in about 6 months (around 09/10/2024) for Wellness. documented in this encounter[facility] [id number] History of Present illness Narrative* Crescencio Marin, DO - 01/01/2024 10:50 AM EDT Subjective Pankaj [...] with PCI of the ostial/proximal circumflex at [facility] he says around 3 years ago [...] daily., Disp: , Rfl: fish oil concentrate ([place]awkin-3) 120-180 mg capsule, Take 1 capsule (1,000 [...] exam, discussion and plan. documented in this [facility] Work Phone: [phone]) 729-561710-09-2024 Instructions* Patient Instructions* Shawna Flores RN - [...] Provided instructions on exercise. documented in this [facility] Work Phone: 1(749) 229-758007-31-2024 [facility] History of Present illness Narrative* Crescencio Marin, DO - 06/20/2023 10:00 AM EDT [...] with PCI of the ostial/proximal circumflex at [facility] he says around 3 years ago [...] bedtime., Disp: , Rfl: fish oil concentrate ([place]awkin-3) 120-180 mg capsule, Take 1 capsule (1,000 [...] exam, discussion and plan. [facility]: 1(312) 749-896003-28-2024 Instructions* Patient Instructions* Bernadette Santillan LPN - [...] Provided instructions on exercise. [facility] Phone: 1(998) 863-764402-14-2024 History of Present illness Narrative* Frantz Conley MD - 05/08/2023 10:30 AM EST Subjective Patient ID: Pankaj Payne is a 77 y.o. male who presents for Follow-up ([facility] stay: admitted 04/30/23 dx: anemia discharged home 05/01/23 follow up with hematology was 05/07/23) and Anemia. Flowsheet Row Telephone from 05/03/2023 in [facility] with Frantz Conley MD Discharge Information ED or Hospital Discharge? Hospital Patient has been contacted within two business days of discharge Yes Discharge Date 05/01/23 Discharge Hospital [facility] Discharged To: Home Setting Engagement Call Start [...] by mouth 1 (one) time each day. [place]-3 Fatty Acids (Fish Oil) 1000 MG capsule [...] was discussed with Dr Sevilla, Hematology at [facility], he is following the patient and did see himin the hospital. Iron deficiency anemia, unspecified iron deficiency anemia type - Ambulatory referral to Gastroenterology; Future Other cirrhosis of liver (CMS/HCC) - US LIVER; Future Fatty liver disease, nonalcoholic - US LIVER; Future Hyperchylomicronemia (CMS/HCC) Follow up in about 4 weeks (around 06/05/2023) for Test/Lab Review. documented in this encounterUniversity Health Lakewood Medical [id number] Evaluation note* Encounter Date Diagnosis Assessment Notes Treatment Notes Treatment Clinical Notes Aug, Cirrhosis (ICD-10 - K74.60) Dr. Conley (PCP) will order lab work Repeat fibroscan in 2024 Rto 1 yr Aug, NAFLD (nonalcoholic fatty liver disease) (ICD-10 - K76.0) Aug, PLASCENCIA (nonalcoholic steatohepatitis) (ICD-10 - K75.81) [employer] Other 05-17-2023 Consult note Author Zoila Castorena [facility] August 08, 2022 3:09pm Note Date/Time August 08, 2022 2:08p m [facility] [place] [address] Hem/Onc Consult Note - OP Signed Patient: Pankaj Payne MR#: [id number] : 1945 Acct:[id number] Age/Sex: 77 / M Type: REG RCR [...] smoking cigars while he was in the [employer] but was not a regular cigarette smoker. [...] PO QAM 04/26/21 [History Confirmed 08/08/22] omega 6-jll-iyf-fish oil 1,000 mg (120 mg-180 mg) capsule [...] for coordination of care (as documented) and nolc-fu-jkhu counseling of patient and/or family. Dictated By: Zoila Castorena MD DD/ 1407 Signed By: <Electronically signed by MD Zoila Castorena> 08/08/22 3907 [facility] Work Phone: 1(804) 969-323406-22-2022 Evaluation note* Encounter Date Diagnosis Assessment Notes Treatment Notes Treatment Clinical Notes Aug, Fatty liver (ICD-10 - K76.0) ENCOURAGED WATCHING DIET, EXERCISE AND WEIGHT LOSS. WILL NEED TO MONITOR IMAGING EVERY 6 MONTHS. PROCEED WITH EGD Aug, Other cirrhosis of liver (ICD-10 - K74.69) Aug, NAFLD (nonalcoholic fatty liver disease) (ICD-10 - K76.0) Aug, PLASCENCIA (nonalcoholic steatohepatitis) (ICD-10 - K75.81) [employer] Other 05-26-2022 Hospital Discharge instructions* Instructions* Jaciel Patorishabh Altamirano APRN - LOW - 08/17/2021 Images from the original note [...] called to the trauma nurse line at [phone] and please leave a message. Trauma is [...] Injury Discharge Instructions Thank you for choosing [facility] and [facility] for your recovery needs. The following instructions will help to ensure your comfort and that you are wellprepared for your recovery. Follow-up Visit: The office is located at: [facility] [address] [place] [address], [address], [place] [address] [x] Please have a CT scan of your head done prior to this appointment. Please also call your primary care physician to schedule an appointment for further evaluation and care. You can obtain CT head closer to home and have them electronically send the imaging to [facility] so we can see the scan You can follow up with Neurosurgery closer to home of you can do virtual visit with Porsche the outpatient FLIGHT OPERATIONS ENGINEER Ok to restart your ASPIRIN today 08/17 [...] medications. YOU SHOULD CALL THE OFFICE AT [phone] IF YOU HAVE ANY OF THE FOLLOWING: [...] the emergency department. documented in this encounterB[email or web address] Phone: [phone]) [phone] History of Present illness Narrative* Javi Rincon, PT - 08/17/2021 1:49 PM EDT Physical Therapy Facility/Department: [facility] CAR 1 Physical Therapy Initial Assessment Name: [...] Ambulation Assistance: Independent Transfer Assistance: Independent Active Drug Safety Data Management Specialist: Yes Occupation: Retired Type of Occupation: [...] assessed while using no device. AM-PAC Score -[facility] Inpatient Mobility Raw Score : 24 (08/17/21 134) -[facility] Inpatient T-Scale Score : 61.14 (08/17/21 134) Mobility Inpatient CMS 0-100% Score: 0 (08/17/211347) Mobility Inpatient [facility] G-Code Modifier : CH (08/17/211347) Goals [...] 8 Minutes Javi Rincon PT * Jazmin Connor, OT - 08/17/2021 1:06 PM EDT Occupational Therapy Facility/Department: [facility] CAR 1 Occupational Therapy [...] Ambulation Assistance: Independent Transfer Assistance: Independent Active Drug Safety Data Management Specialist: Yes Occupation: Retired Type of Occupation: [...] AM-PAC Inpatient Daily Activity Raw Score: 24 (08/17/211306) AM-PAC Inpatient ADL T-Scale Score : 57.54 (08/17/211306) ADL Inpatient [facility] 0-100% Score: 0 (08/17/211306) ADL Inpatient [facility] G-Code Modifier : CH (08/17/211306) Goals [...] Date: 08/16/2021 Hospital day 1 Other vehicle: [employer] Past Medical History: Diagnosis Date Hyperlipidemia Hypertension [...] 2200 (!) 147/97 70 12 97 % 08/16/218 (!) 155/95 97.9 F (36.6 C) Axillary [...] None. HISTORY: ORDERING SYSTEM PROVIDED HISTORY: SAH [facility] TECHNOLOGIST PROVIDED HISTORY: SAH and SDH Decision [...] SYSTEM PROVIDED HISTORY: Impact with object riding appeals writer TECHNOLOGIST PROVIDED HISTORY: Impact with object riding appeals writer Decision Support Exception - unselect if not [...] most recent progress note [facility] [employer] Phone: 1(859) 279-411604-19-2022 Evaluation note* Encounter Date Diagnosis Assessment Notes Treatment Notes Treatment Clinical Notes Jun, Cirrhosis (ICD-10 - K74.60) [employer] Other 03-01-2022 History general Narrative - Reported* Type Description Date Surgical History cholecystectomy 05/2021 Surgical History heart stent Surgical History cataracts, bilaterally [employer] Other 03-01-2022 History general Narrative - Reported* Type Description Date Surgical History cholecystectomy 05/2021 Surgical History heart stent Surgical History cataracts, bilaterally Hospitalization History see surgical hx [employer] Other Evaluation note* Diagnosis SAH (subarachnoid hemorrhage) (HCC)- Primary Subarachnoid hemorrhage Subarachnoid hemorrhage following injury, no loss of consciousness, initial encounter (HCC) Facial laceration, initial encounter Subdural hematoma (HCC) Subdural hemorrhage documented in this encounter [facility] [employer] Phone: evaluation noteNo assessment information available 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 in this encounter [facility]* Diagnosis ASHD (arteriosclerotic heart disease) Coronary atherosclerosis of unspecified type of vessel, lumbee or graft History of coronary artery stent placement Ascending aorta dilation (CMS/HCC) Thoracic aneurysm without mention of rupture Iron deficiency anemia, unspecified iron deficiency anemia type PVC (premature ventricular contraction) Other premature beats Former cigarette smoker Personal history of tobacco use, presenting hazards to health documented in this encounter [facility] Work Phone: Evaluation note* Diagnosis Onset Date Resolution Status Cirrhosis, nonalcoholic acut e Non-alcoholic fatty liver disease acute Nonalcoholic steatohepatitis (PLASCENCIA) [facility] Work Phone: Evaluation note* Diagnosis ASHD (arteriosclerotic heart disease) Coronary atherosclerosis of unspecified type of vessel, lumbee or graft PVC (premature ventricular contraction) Other premature beats History of coronary artery stent placement Former cigarette smoker Personal history of tobacco use, presenting hazards to health BMI 29.0-29.9,adult Bradycardia Other specified cardiac dysrhythmias documented in this encounter [facility] Work Phone: Evaluation note* Diagnosis Benign essential HTN (CMS/HCC)- Primary Flu vaccine need Coronary artery disease involving lumbee coronary artery of lumbee heart without angina pectoris (CMS/HCC) Mixed hyperlipidemia (CMS/HCC) Mixed hyperlipidemia Acquired hypothyroidism (CMS/HCC) Unspecified hypothyroidism Prostate cancer screening Special screening for malignant neoplasm of prostate documented [facility] this encounter [facility]* Diagnosis Mixed hyperlipidemia (CMS/HCC)- Primary Mixed hyperlipidemia documented in this encounter [facility]* Diagnosis ASHD (arteriosclerotic heart disease) Coronary atherosclerosis of unspecified type of vessel, lumbee or graft History of coronary artery stent placement PVC (premature ventricular contraction) Other premature beats BMI 30.0-30.9,adult Former cigarette smoker Personal history of tobacco use, presenting hazards to health Hyperlipidemia, unspecified hyperlipidemia type documented in this encounter [facility] Work Phone: Evaluation note* Diagnosis Sinus bradycardia- Primary Other specified cardiac dysrhythmias PVCs (premature ventricular contractions) Other premature beats Coronary artery disease involving lumbee coronary artery of lumbee heart without angina pectoris 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) documented in this encounter [facility]* Diagnosis Medicare annual wellness visit, subsequent- Primary ACP (advance care planning) Other specified counseling Chronic insomnia Insomnia, unspecified Other chronic pain Benign essential HTN Benign hypertensive heart and CKD, 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), w CHF (HCC) Coronary artery disease involving lumbee coronary artery of lumbee heart without angina pectoris Dilatation of aorta [...] unspecified iron deficiency anemia type Pancytopenia, acquired ([facility]-HCC) Pancytopenia Former cigarette smoker Personal history of tobacco use, presenting hazards to health Mixed hyperlipidemia Mixed hyperlipidemia Situational anxiety Unsteadiness on feet Esophageal varices without bleeding (HCC) Esophageal varices without mention of bleeding Other secondary pulmonary hypertension (HCC) Grade II diastolic dysfunction documented in this encounter [facility] HealthcareEvaluation note* Diagnosis Onset Date Resolution Status Admit Date Cirrhosis, nonalcoholic acute A ugust 2024 1:26pm Esophageal varices acute November 11, 2024 1:26pm Metabolic dysfunction-associ ated steatohepatitis (MASH) acute November 112024 1:26pm [facility] Work Phone: History and physical note Author Mick Branch [facility] October 23, 2023 10:14am Note Date/Time October 23, 2023 10:1 4am [facility] [address] [place] [address] Gastroenterology H&P Signed Patient: Pankaj Payne MR#: [id number] : 1945 Acct:[id number] Age/Sex: 78 / M Adm Date: 4 Loc: Room: Type: [facility] Attending Dr: Mick Branch MD Copies [...] signed by Mick Branch MD> 10/23/23 1014 [facility] Work Phone: Hospital Discharge instructions Additional [...] NOT operate machinery such as power tools, [employer] mowers, snow blowers, sewing machines, etc. for [...] cancer screening. -Continue to follow with your timber appraiser Dr. Sevilla. -Notify the doctor if you have any problems. -Follow up with PCP. - Office number [phone].[facility] Work Phone: Reuklr for referral (narrative)* Consultation (Routine) - Authorized Specialty Diagnoses / Procedures Referred By Contac t Referred To Contact Gastroenterology Diagnoses Iron deficiency anemia, unspecified iron deficiency anemia type Procedures CT OFFICE/OUTPAT[facility] [place] 60 MINUTES Frantz Conley MD [address] [facility] [address] [place] [address] Mick Branch MD [address] [place] [address] [address] [place] [address] Referral ID Status Reason Start Date Expiration Date Visits Requested Visits Authorized [id number] Authorized Specialty Services Required 05/08/2023 11/04/2023 1 1 [facility] (narrative)No reason for referral information availableSt. [facility] Work Phone: Reason for visit NarrativePT HERE AT REQUEST OF DR DAY FOR EVALUATION AND TREATMENT OF CIRRHOSIS, REFERRAL NOTE [facility] [employer] Other Summary Purpose Family History Relationship Condition [...] 9:52am Hospital Course Note MR#: [id number] [facility] Pt. Name: Pankaj Payne Admitted: 02/28/2018 [...] injury, no loss of consciousness, initial encounter ([facility]) Procedures CT HEAD WO CONTRAST Pato Grissom, DELIVERY NURSE - FLIGHT OPERATIONS ENGINEER [address] [place] [address] Referral ID Status Reason Start Date Expiration Date Visits Re quested Visits Authorized [id number] Open 08/24/2021 08/24/2022 1 1 Specialty Diagnoses / Procedures Referred By Contac t Referred To Contact Cardiology Diagnoses PVC (premature ventricular contraction) Procedures Holter Or Event House Nurse Crescencio Marin, DO [address], [place] [address] [place] [id number] Referral ID Status Reason Start Date Expiration Date V isits Requested Visits Authorized [id number] Pending Review 06/20/2023 06/19/2024 1 1 Specialty Diagnoses / Procedures Referred By Contac t Referred To Contact Diagnoses PVC (premature ventricular contraction) Procedures ECG 12 Lead Crescencio Marin, DO [address], [place] [address] [place] [id number] Referral ID Status Reason Start Date Expiration Date V isits Requested Visits Authorized [id number] Authorized 06/20/2023 06/19/2024 1 1 Specialty Diagnoses / Procedures Referred By Contac t Referred To Contact Cardiology Diagnoses ASHD (arteriosclerotic heart disease) Procedures Follow Up In Cardiology Crescencio Marin DO [address], [place] [address] [place] [id number] Crescencio Marin, DO [address], [place] [address] [place] [id number] Referral ID Status Reason Start Date Expiration Date V isits Requested Visits Authorized [id number] Authorized 06/20/2023 06/19/2024 1 1 Specialty Diagnoses / Procedures Referred By Contac t Referred To Contact Diagnoses PVC (premature ventricular contraction) Bradycardia Procedures ECG 12 Lead Crescencio Marin, DO [address], [facility] [address] [place] [address] Referral ID Status Reason Start Date Expiration Date V isits Requested Visits Authorized [id number] Authorized 01/01/2024 12/31/2024 1 1 Referral ID Status Reason Start Date Expiration Date V isits Requested Visits Authorized [id number] Authorized 01/01/2024 12/31/2024 1 1 Chief Complaint [...] section and content) DATE CREATED AUTHOR 03/05/2018 [facility] DATE CREATED AUTHOR AUTHOR'S ORGANIZ ATION 11/12/2018 [facility] DATE CREATED AUTHOR AUTHOR'S ORGANIZ ATION 06/08/2021 [facility] Specialist DATE CREATED AUTHOR AUTHOR'S ORGANIZ ATION 08/20/2021 [facility] DATE CREATED AUTHOR AUTHOR'S ORGANIZ ATION 11/15/2021 [facility] DATE CREATED AUTHOR AUTHOR'S ORGANIZ ATION 07/11/2024 [facility] DATE CREATED AUTHOR AUTHOR'S ORGANIZ ATION 09/11/2024 [facility] DATE CREATED AUTHOR AUTHOR'S ORGANIZ ATION 10/22/2024 [facility] Specialists EPIC DATE CREATED AUTHOR AUTHOR'S ORGANIZ ATION 11/13/2024 [facility] ys[facility] Group Reason for Visit (unrecogniz ed section and content) Reason Comments Head Injury Reason Comments Follow-up [facility] stay: admitted dx: anemia discharged home 05/01/23 follow up with hematology was 05/07/23 Anemia Reason Comments New Patient Visit Referral for CAD Specialty Diagnoses / Procedures Referred By Contac t Referred To Contact Diagnoses PVC (premature ventricular contraction) Procedures ECG 12 Lead Crescencio Marin, [address] [place] [address] 2, [address] [address] Referral ID Status Reason Start Date Expiration Date V isits Requested Visits Authorized [id number] Authorized 06/20/2023 06/19/2024 1 1 Reason Comments Follow-up 6 month Specialty Diagnoses / Procedures Referred By Contac t Referred To Contact Cardiology Diagnoses ASHD (arteriosclerotic heart disease) Procedures Follow Up In Cardiology Crescencio Marin, [address] [place] [address] 2, [address] [address] Crescencio Marin, [address] [place] [address] 2, [place] [id number] Referral ID Status Reason Start Date Expiration Date V isits Requested Visits Authorized [id number] Authorized 06/20/2023 06/19/2024 1 1 Reason Comments Hypertension Reason Onset Date Comments Med Refill 04/22/2024 Reason Comments Follow-up 8 month visit for ca d. Specialty Diagnoses / Procedures Referred By Contac t Referred To Contact Cardiology Diagnoses ASHD (arteriosclerotic heart disease) Procedures Follow Up In Cardiology Crescencio Marin, [address] [place] [address] [address], [address] [address] Phone: tel: fax: Crescencio Marin, [address] [place] [address] 2, [address] [address] Phone: tel: fax: Referral ID Status Reason Start Date Expiration Date V isits Requested Visits Authorized [id number] Authorized 01/01/2024 12/31/2024 1 1 Reason Comments Hypotension Reason Comments Medicare Annual Wellness Visit [facility] Ordered Prescriptions (unrec ognized section and [...] Sat08/16/21 at 2030, Until Discontinued 2029 (Due) 08 (Not Given - Provider: Sybil Avalos RN [...] 6 HOURS PRN, Starting on Sat08/16/21 at 2015, Until Discontinued, Nausea, Vomiting
Administer if oral [...] June 05, 2023 End: June 05, 2023 Publishing Editor Relationship Specialty Start Date End Date Frantz Conley MD [address] [place] [address] PCP - General Internal Medicine 08/16/21 Team [...] Active Zoila Castorena MD Attending Provider Active Publishing Editor Relationship Specialty Start Date End Date Frantz Conley MD [address] [facility] [address] [place] [address] PCP - General Internal Medicine 08/08/22 Frantz Conley MD [address] [place] [address] PCP - ACO Reach 08/16/22 Publishing Editor Relationship Specialty Start Date End Date Frantz Conley MD [address] [facility] [address] [place] [address] PCP - General Internal Medicine 08/08/22 Frantz Conley MD [address] [facility] [address] [place] [address] PCP - ACO Reach 08/16/22 Publishing Editor Relationship Specialty Start Date End Date Frantz Conley MD [address] [facility] [address] [place] [address] PCP - General Internal Medicine 06/20/23 Team [...] Provide r Active Start: October 23, 2023 Publishing Editor Relationship Specialty Start Date End Date Frantz Conley MD [address] [facility] [address] [place] [address] PCP - General Internal Medicine 08/08/22 Frantz Conley MD [address] [facility] [address] [place] [address] PCP - ACO Reach 08/16/22 Publishing Editor Relationship Specialty Start Date End Date Frantz Conley MD [address] [facility] [address] [place] [address] PCP - General Internal Medicine 08/08/22 Frantz Conley MD [address] [place] [address] PCP - ACO Reach 08/16/22 Publishing Editor Relationship Specialty Start Date End Date Frantz Conley MD [address] [place] [address] PCP - General Internal Medicine 08/08/22 Frantz Conley MD [address] [place] [address] PCP - ACO Reach 08/16/22 Publishing Editor Relationship Specialty Start Date End Date Frantz Conley MD [address] [place] [address] PCP - General Internal Medicine 08/08/22 Frantz Conley MD [address] [place] [address] PCP - ACO Reach 08/16/22 Team Status: [...] May 21, 2024 End: May 21, 2024 Publishing Editor Relationship Specialty Start Date End Date Frantz Conley MD [address] [place] [address] PCP - General Internal Medicine 06/20/23 Publishing Editor Relationship Specialty Start Date End Date Frantz Conley MD [address] [place] [address] PCP - General Internal Medicine 08/08/22 Frantz Conley MD [address] [place] [address] PCP - ACO Reach 08/16/22 Publishing Editor Relationship Specialty Start Date End Date Frantz Conley MD [address] [place] [address] PCP - General Internal Medicine 08/08/22 Frantz Conley MD [address] [place] [address] PCP - ACO Reach 08/16/22 Publishing Editor Relationship Specialty Start Date End Date Frantz Conley MD [address] [place] [address] PCP - General Internal Medicine 08/08/22 Frantz Conley MD [address] [place] [address] PCP - ACO Reach 08/16/22 Team Status: [...] BE BASED ON THE PRIMARY CLINICAL RECORDS. [facility]. provides no warranty or guarantee of the accuracy or completeness of information in this document.
--- NOTE | 2024-12-25 00:46 | XR_ITS ---
The [address] [address] Patient Name: AJ PAYNE MRN: [id number] date: 1945 Sex: M Assigned Patient Location: ER Current Patient Location: [place] Accession/Order Number: [id number] Exam Date: 12/25/2024 01:03 Report Date: 12/25/2024 08:56 At the request of: KEILY VELASQUEZ MD Procedure: XR chest 1V XR chest 1V 12/25/2024 1:09 AM SIGNS AND SYMPTOMS: ^Fever, weak ^Y PROTOCOL: Frontal radiograph of the chest COMPARISON: 04/30/2023 FINDINGS: The trachea is midline. Atherosclerotic changes are noted in the thoracic aorta. The heart and mediastinal structures are within normal limits. Hazy airspace opacities are noted, greatest in the lung bases. These appear to be chronic in nature. The bony thorax is intact. XR/XR chest 1V IMPRESSION: Hazy airspace opacities are noted, greatest in the lung bases. These appear to be chronic in nature. Impression dictated by: Kyle Calvo M.D. 12/25/2024 8:56 AM [facility]ation [facility] Electronically authenticated by: [id number] Y Date: 12/25/2024 08:56
--- NOTE | 2024-12-25 00:46 | ECG_ITS ---
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 Measurements Intervals [place] Rate: 99 P: -62346 HI: -28015 QRS: -65 QRSD: 128 T: 98 QT: 410 QTc: 466 Interpretive Statements Sinus rhythm with frequent supraventricular premature complexes with occasional premature ventricular complexes 2450 Right bundle branch block 2630 Left anterior fascicular block Anterolateral myocardial infarction, age undetermined 9150 abnormal ECG Compared to ECG 04/30/2023 12:41:31 Ventricular premature complex(es) now present Right bundle-branch block now present Myocardial infarct finding still present Electronically Signed On 12-25-2024 18:42:15 EDT by LUCIA SCHWAB M.D.
--- NOTE | 2024-12-25 00:47 | ED.GENADUL1 ---
HPI HPI - General Adult General Chief complaint: Altered Mental Status Stated complaint: AMS Time Seen by Provider: 12/25/24 00:44 Source: patient and other Source information: ems Mode of arrival: ambulance Limitations: altered mental status History of Present Illness HPI narrative: 79-year-old male presenting to the emergency department for weakness. He apparently had the for his yesterday. He states he was having a hard time standing and did not realize he had a fever. He was noted to have a fever at triage. No cough or vomiting or abdominal pain. He is not short of breath and has no dysuria. Related Data Home Medications ?Medication ?Instructions ?Recorded ?Confirmed aspirin 81 mg tablet,delayed 81 mg PO DAILY 04/30/23 04/30/23 release (Adult Low Dose Aspirin) atorvastatin 20 mg tablet 20 mg PO DAILY 04/30/23 04/30/23 clopidogrel 75 mg tablet 75 mg PO DAILY 04/30/23 04/30/23 levothyroxine 100 mcg tablet 100 mcg PO DAILY 04/30/23 04/30/23 multivitamin (Daily Multi-Vitamin 1 tab PO DAILY 04/30/23 04/30/23 tablet) omega 5-ucm-mfz-fish oil 1,000 mg 1 cap PO TID 04/30/23 04/30/23 (120 mg-180 mg) capsule (Fish Oil) omeprazole 40 mg capsule,delayed 40 mg PO BID 04/30/23 05/01/23 release tizanidine 4 mg tablet 4 mg PO BEDTIME 04/30/23 04/30/23 Allergies Allergy/AdvReac Type Severity Reaction Status Date / Time No Known Drug Allergies Allergy Verified 12/25/24 00:31 Opioid HPI Opioid Management Most Recent Opioid Data: Last MAY Pain Assessment Today, 01:17 Review of Systems ROS Narrative A ten point review of systems is negative except as noted above. [facility] Medical History (Updated 12/25/24 @ 02:49 by Nadeem Renteria MD) GERD (gastroesophageal reflux disease) ?K21.9 - Gastro-esophageal reflux disease without esophagitis (ICD-10) Thrombocytopenia ?D69.6 - Thrombocytopenia, unspecified (ICD-10) Neutropenia ?D70.9 - Neutropenia, unspecified (ICD-10) Anemia ?D64.9 - Anemia, unspecified (ICD-10) FH: cholecystectomy ?Z83.79 - Family history of other diseases of the digestive system (ICD-10) Hypothyroid ?E03.9 - Hypothyroidism, unspecified (ICD-10) Arthritis ?M19.90 - Unspecified osteoarthritis, unspecified site (ICD-10) Non-alcoholic cirrhosis ?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 General:The patient appears in no apparent distress. Patient is resting comfortably on cart. Skin:Warm, dry, no pallor noted.There is no rash noted. Head:Normocephalic, atraumatic Eye: Normal conjunctiva, no drainage, EOMI. PERRL Ears, Nose, Mouth, and Throat: oral mucosa is somewhat dry. Nares patent. Cardiovascular: Irregularly irregular, not tachycardic Respiratory:Patient is in no distress, no accessory muscle use, lungs are clear to auscultation, no wheezing, rales or rhonchi Back:non-tender GI: Soft and nontender Musculoskeletal: The patient has no evidence of calf tenderness, no pitting edema, symmetrical pulses noted bilaterally Neurological:A&O x4, normal speech Psychiatric:Cooperative Constitutional Vital Signs, click to edit/add: Last Vital Signs Temp 99.1 F 12/25/24 01:53 Pulse 99 H 12/25/24 01:53 Resp 24 H 12/25/24 01:53 BP 94/64 12/25/24 01:53 Pulse Ox 96 12/25/24 00:32 O2 Del Method Room Air 12/25/24 00:32 Course Vital Signs Vital signs: Vital Signs Temperature 101.5 F H 12/25/24 00:32 Pulse Rate 85 12/25/24 00:32 Respiratory Rate 24 H 12/25/24 00:32 Blood Pressure 138/86 12/25/24 00:32 Pulse Oximetry 96 12/25/24 00:32 Oxygen Delivery Method Room Air 12/25/24 00:32 Temperature 99.1 F 12/25/24 01:53 Pulse Rate 99 H 10/03/25 01:53 Respiratory Rate 24 H 12/25/24 01:53 Blood Pressure 94/64 12/25/24 01:53 Pulse Oximetry 96 12/25/24 00:32 Oxygen Delivery Method Room Air 12/25/24 00:32 Medical Decision Making MDM Narrative Medical decision making narrative: The patient presented with weakness and was found to have a fever. His workup is negative with blood cultures and a lactic acid pending. Chest x-ray on my interpretation shows what appears to be chronic infiltrates, unchanged from most recent chest x-ray. COVID and influenza are negative and urinalysis does not show presence of UTI. He was given Tylenol and his temperature came down and he was given IV fluids and is being admitted. Findings were discussed with his son. The patient was noted to have heme positive stools and this was discussed with his son. The patient appears to have a chronic gastric bleed. His physicians have worked this up with endoscopy and he is on omeprazole. The patient's son states that the patient gets treated for this with iron infusions. This does not appear to be a new issue for him. He was noted to be in atrial fibrillation and the most recent EKG on file here was from April 2023 and he was not in atrial fibrillation at that time, he was in sinus rhythm. His son is not aware of him being in atrial fibrillation in the past. This does not appear to be newly diagnosed but the time of onset is not clear. Differential Diagnosis Differential Diagnosis: Pneumonia, COVID, influenza, UTI, viral illness Lab Data Lab results reviewed: Yes I reviewed the patient's lab results Labs: Lab Results 12/25/24 12/25/24 12/25/24 Range/Units 00:49 01:00 01:02 WBC 6.8 (4.0-11.0) 10^3/uL RBC 3.45 L (4.70-6.10) 10^6/uL Hgb 10.2 L (14.0-18.0) g/dL Hct 32.0 L (42.0-54.0) % MCV 92.8 (80.0-94.0) fL MCH 29.6 (25.9-34.0) pg MCHC 31.9 (29.9-35.2) g/dL RDW 14.4 (11.0-15.0) % Plt Count 82 L (150-450) 10^3/uL MPV 11.4 (9.5-13.5) fL Seg Neuts % (Manual) 90.0 H (43.0-75.0) Lymphocytes % (Manual) 4.0 L (20.5-60.0) % Monocytes % (Manual) 6.0 (1.7-12.0) % Eosinophils % (Manual) 0.0 L (0.9-7.0) % Basophils % (Manual) 0.0 L (0.2-2.0) % Neutrophils # (Manual) 6.12 (1.4-6.5) 10^3/uL Lymphocytes # (Manual) 0.27 L (1.20-3.80) 10^3/uL Monocytes # (Manual) 0.40 (0.30-0.80) 10^3/uL Eosinophils # (Manual) 0.00 (0.00-0.70) 10^3/uL Basophils # (Manual) 0.00 (0.00-0.10) 10^3/uL Sodium 140 (136-145) mmol/L Potassium 3.8 (3.5-5.1) mmol/L Chloride 108 H (98-107) mmol/L Carbon Dioxide 22.4 (21.0-32.0) mmol/L Anion Gap 13.4 BUN 17.0 (7.0-18.0) mg/dL Creatinine 0.90 (0.70-1.30) mg/dL Est GFR ( Amer) >60 (>=60 mL/min/1.73m^2) Est GFR (Non-Af Amer) >60 (>=60 mL/min/1.73m^2) BUN/Creatinine Ratio 18.9 Glucose 147 H (74-106) mg/dL Calcium 8.4 L (8.5-10.1) mg/dL Urine Color (YELLOW) Urine Clarity (CLEAR) Urine pH (5.0-9.0) Ur Specific Johnson (1.005-1.025) Urine Protein (NEG/TRACE) mg/dL Urine Glucose (UA) (NEGATIVE) mg/dL Urine Ketones (NEGATIVE) mg/dL Urine Occult Blood (NEGATIVE) Urine Nitrite (NEGATIVE) Urine Bilirubin (NEGATIVE) Urine Urobilinogen (0.2-1.0) EU/dL Ur Leukocyte Esterase (NEGATIVE) Urine RBC (0-2) #/HPF Urine WBC (NONE SEEN) #/HPF Ur Squamous Epith Cells (NONE/RARE) #/LPF Urine Crystals (None Seen) #/HPF Urine Bacteria (NONE SEEN) #/HPF Urine Casts (NONE SEEN) #/LPF Hyaline Casts Urine Mucus (NONE SEEN) Ur Culture Indicated? Stool Occult Blood Positive A Influenza Type A Ag Negative Influenza Type B Ag Negative SARS-CoV-2 Ag (CV2AG) Negative (NEGATIVE) 12/25/24 Range/Units 02:15 WBC (4.0-11.0) 10^3/uL RBC (4.70-6.10) 10^6/uL Hgb (14.0-18.0) g/dL Hct (42.0-54.0) % MCV (80.0-94.0) fL MCH (25.9-34.0) pg MCHC (29.9-35.2) g/dL RDW (11.0-15.0) % Plt Count (150-450) 10^3/uL MPV (9.5-13.5) fL Seg Neuts % (Manual) (43.0-75.0) Lymphocytes % (Manual) (20.5-60.0) % Monocytes % (Manual) (1.7-12.0) % Eosinophils % (Manual) (0.9-7.0) % Basophils % (Manual) (0.2-2.0) % Neutrophils # (Manual) (1.4-6.5) 10^3/uL Lymphocytes # (Manual) (1.20-3.80) 10^3/uL Monocytes # (Manual) (0.30-0.80) 10^3/uL Eosinophils # (Manual) (0.00-0.70) 10^3/uL Basophils # (Manual) (0.00-0.10) 10^3/uL Sodium (136-145) mmol/L Potassium (3.5-5.1) mmol/L Chloride (98-107) mmol/L Carbon Dioxide (21.0-32.0) mmol/L Anion Gap BUN (7.0-18.0) mg/dL Creatinine (0.70-1.30) mg/dL Est GFR ( Amer) (>=60 mL/min/1.73m^2) Est GFR (Non-Af Amer) (>=60 mL/min/1.73m^2) BUN/Creatinine Ratio Glucose (74-106) mg/dL Calcium (8.5-10.1) mg/dL Urine Color Yellow (YELLOW) Urine Clarity Clear (CLEAR) Urine pH 5.5 (5.0-9.0) Ur Specific Johnson >=1.030 A (1.005-1.025) Urine Protein Negative (NEG/TRACE) mg/dL Urine Glucose (UA) Negative (NEGATIVE) mg/dL Urine Ketones Trace A (NEGATIVE) mg/dL Urine Occult Blood Large A (NEGATIVE) Urine Nitrite Negative (NEGATIVE) Urine Bilirubin Negative (NEGATIVE) Urine Urobilinogen 1.0 (0.2-1.0) EU/dL Ur Leukocyte Esterase Negative (NEGATIVE) Urine RBC 10-20 A (0-2) #/HPF Urine WBC 0-2 A (NONE SEEN) #/HPF Ur Squamous Epith Cells Rare (NONE/RARE) #/LPF Urine Crystals None seen (None Seen) #/HPF Urine Bacteria Trace A (NONE SEEN) #/HPF Urine Casts Seen A (NONE SEEN) #/LPF Hyaline Casts Rare Urine Mucus Small A (NONE SEEN) Ur Culture Indicated? No Stool Occult Blood Influenza Type A Ag Influenza Type B Ag SARS-CoV-2 Ag (CV2AG) (NEGATIVE) Imaging Data Chest x-ray: My impression: Chronic bilateral infiltrates ECG Data Attestation: I personally reviewed and interpreted this ECG as follows: (EKG on my interpretation shows atrial fibrillation with a rate of 99) Discharge Plan Discharge Chief Complaint: Altered Mental Status Clinical Impression: Fever, Atrial fibrillation Patient Disposition: Admitted As Inpatient Time of Disposition Decision: 02:48 Condition: Fair
[2024-12-25 01:09] LABS: Anion Gap 13.4; Blood Urea Nitrogen 17.0 mg/dL (7.0-18.0); Calcium 8.4 mg/dL (8.5-10.1); Carbon Dioxide 22.4 mmol/L (21.0-32.0); Chloride 108 mmol/L (98-107); Estimated GFR (African America >60 (>=60 mL/min/1.73m^2); Estimated GFR (Non-African Ame >60 (>=60 mL/min/1.73m^2); Glucose 147 mg/dL (74-106); Potassium 3.8 mmol/L (3.5-5.1); Sodium 140 mmol/L (136-145)
[2024-12-25 01:14] LABS: Hematocrit 32.0 % (42.0-54.0); Hemoglobin 10.2 g/dL (14.0-18.0); Mean Corpuscular HGB Conc 31.9 g/dL (29.9-35.2); Mean Corpuscular Hemoglobin 29.6 pg (25.9-34.0); Mean Corpuscular Volume 92.8 fL (80.0-94.0); Platelet Count 82 10^3/uL (150-450); Red Blood Count 3.45 10^6/uL (4.70-6.10); White Blood Count 6.8 10^3/uL (4.0-11.0)
[2024-12-25] MEDS: ACETAMINOPHEN 325 MG TABLET 650 MG PO ×2 (01:17→21:26)
[2024-12-25] MEDS: 0.9 % SODIUM CHLORIDE 1,000 ML 100 ML IV (01:25)
[2024-12-25 01:27] LABS: Basophils Abs Manual 0.00 10^3/uL (0.00-0.10); Basophils Percent Manual 0.0 % (0.2-2.0); Eosinophils Absolute Manual 0.00 10^3/uL (0.00-0.70); Eosinophils Percent Manual 0.0 % (0.9-7.0); Lymphocytes Absolute Manual 0.27 10^3/uL (1.20-3.80); Lymphocytes Percent Manual 4.0 % (20.5-60.0); Monocytes Absolute Manual 0.40 10^3/uL (0.30-0.80); Monocytes Percent Manual 6.0 % (1.7-12.0); Segmented Neut Absolute Manual 6.12 10^3/uL (1.4-6.5); Segmented Neutrophils % Manual 90.0 (43.0-75.0)
[2024-12-25 01:33] LABS: SARS-CoV-2 Ag NEGATIVE (NEGATIVE)
[2024-12-25] MEDS: LIDOCAINE 2% JELLY 20 ML UR (02:15)
[2024-12-25 02:23] LABS: Glucose Urine UA NEGATIVE (NEGATIVE)
[2024-12-25 02:29] LABS: Cast Seen? SEEN #/LPF (NONE SEEN); Crystals Seen? None Seen #/HPF (None Seen); Urine Culture Indicated NO
[2024-12-25] MEDS: PANTOPRAZOLE SODIUM 40 MG VIAL IV (03:02)
[2024-12-25 03:19] LABS: Lactate/Lactic Acid 2.3 mmol/L (0.4-2.0)
[2024-12-25 06:39] LABS: Lactate/Lactic Acid 1.7 mmol/L (0.4-2.0)
--- NOTE | 2024-12-25 07:39 | CA_ITS ---
Patient Name: AJ PAYNE MR#: [id number] : 1945 Exam Date: 12/25/2024 Ordering Doctor: BRODY HAMMOND ECHOCARDIOGRAM REPORT PROCEDURE: CA ECHO DOPPLER COMPLETE INDICATIONS: A fib, cardiac stent COMPARISON: None. DESCRIPTION: COMPLETE ECHOCARDIOGRAM Real-time transthoracic echocardiography with 2D, M-mode, spectral and color flow Doppler performed. QUALITY: Technical quality was good. LEFT VENTRICLE: Normal chamber size. Thickened septal wall. LV EF: Normal left ventricular ejection fraction, (>55%). DIASTOLIC: Not adequately assessed due to heart rhythm. ATRIAL SEPTUM: LEFT ATRIUM: Moderate dilatation. RIGHT ATRIUM: Mild dilatation. RIGHT VENTRICLE: Normal chamber size. Normal right ventricular systolic function. TRICUSPID VALVE: Normal mobility and thickness. No stenosis with trivial regurgitation. Doppler studies reveal mildly (35-45) elevated right sided pressures. RVSP 40 mmHg MITRAL VALVE: Normal mobility and thickness. No evidence of mitral valve stenosis. There is no mitral annular calcification. No mitral regurgitation. AORTIC VALVE: Normal trileaflet appearance. Mildly calcified aortic valve. Mildly diminished mobility. No evidence of aortic valve stenosis. No aortic regurgitation. AORTIC ROOT: Normal diameter and appearance. Ascending aorta is normal in size. PULMONIC VALVE: Normal thickness and mobility. No stenosis. No regurgitation. PERICARDIUM: No evidence of pericardial effusion. IVC: Not well visualized. PLEURA: CONCLUSION: - Normal left ventricular ejection fraction, (>55%). -Doppler studies reveal mildly (35-45) elevated right sided pressures. RVSP 40 mmHg -No significant valvular disease. Adult Echocardiography Procedure Report Left Ventricle LVEDD (3.7 - 5.6 cm): 4.56 cm LVESD (2.2 - 4.0 cm): 3.11 cm LVIVS thickness (0.6 - 1.2 cm): 1.56 cm LVPW thickness (0.5 - 1.0 cm): 1.10 cm e': E - e': LVOT Max Gradient: 2.97 mm[Hg], 3.69 mm[Hg] LVOT Area (cm2): 0.91 m/s Peak Velocity (LVOT): 0.86 m/s, 0.96 m/s Mean Velocity (LVOT): 0.58 m/s LVOT Diameter 2.57 cm Left Ventricular Ejection Fraction: Left Atrium LA Volume Index (2D A2C): 45.64 ml/m2 Left Atrium Systolic Dimension: 4.35 cm Mitral Valve MV E to A Ratio: 0.77, 0.79 MV Max Gradient: MV Mean Gradient: Mitral Valve A-Wave Peak Velocity: 0.94 m/s Mitral Valve E-Wave Peak Velocity: 0.74 m/s Cardiovascular Orifice Area: Right Ventricle RV Internal Diastolic Dimension: Aorta AO Root Diam: 3.71 cm Ascending Ao Diam: 3.03 cm Aortic Valve AoV Area (Peak Cesario): 2.72 cm2, 2.74 cm2, 2.70 cm2 AoV Area (VTI): 2.51 cm2, 2.76 cm2, 2.29 cm2 Deceleration [place]: Pressure Half-Time: Peak Velocity(Antegrade Flow): 1.63 m/s, 1.85 m/s Peak Gradient(Antegrade Flow): 10.67 mm[Hg], 13.63 mm[Hg] Mean Velocity(Antegrade Flow): 1.13 m/s, 1.27 m/s Mean Gradient(Antegrade Flow): 5.85 mm[Hg], 7.40 mm[Hg] Velocity Time Integral: 31.49 cm, 35.74 cm Tricuspid Valve Peak Velocity (Regurgitant Flow): 3.04 m/s, 2.92 m/s Peak Velocity: Pulmonic Valve Mean Gradient: Mean Velocity: Peak Velocity: 1.18 m/s Peak Gradient: 5.59 mm[Hg], 6.84 mm[Hg], 4.32 mm[Hg] Right Atrium Right Atrium Systolic Pressure: 37.42 ml, 37.42 ml Dictated by: Yara Cain MD on 12/25/2024 at 11:31 Approved by: Yara Cain MD on 12/25/2024 at 11:34
[2024-12-25 07:51] LABS: Hematocrit 28.1 % (42.0-54.0); Hemoglobin 9.0 g/dL (14.0-18.0); Mean Corpuscular HGB Conc 32.0 g/dL (29.9-35.2); Mean Corpuscular Hemoglobin 29.8 pg (25.9-34.0); Mean Corpuscular Volume 93.0 fL (80.0-94.0); Platelet Count 73 10^3/uL (150-450); Red Blood Count 3.02 10^6/uL (4.70-6.10); White Blood Count 5.2 10^3/uL (4.0-11.0)
[2024-12-25] MEDS: PANTOPRAZOLE SODIUM 40 MG TABLET.DR PO ×2 (07:54→21:26)
[2024-12-25 08:17] LABS: Alanine Aminotransferase 61 U/L (16-63); Albumin Globulin Ratio 0.8; Albumin Level 2.9 g/dL (3.4-5.0); Alkaline Phosphatase 147 U/L (46-116); Aspartate Amino Transferase 76 U/L (15-37); Globulin 3.8 g/dL; Thyroid Stimulating Hormone 1.195 uIU/mL (0.358-3.740); Total Protein 6.7 g/dL (6.4-8.2)
--- NOTE | 2024-12-25 08:30 | CM.NOTE ---
Rounds made with Dr. Hernandez, pt awake and following commands. Discussed with pt reason for admission and plan of care. Pt inpatient status, no discharge today. Spoke with MARISOL Nieves about ambulation today and update Dr. Hernandez if there is need for PT and OT.
[2024-12-25] MEDS: CLOPIDOGREL BISULFATE 75 MG TABLET PO (11:13)
[2024-12-25] MEDS: MULTIVITAMIN TABLET 1 TAB PO (11:13)
[2024-12-25] MEDS: 0.9 % SODIUM CHLORIDE 1,000 ML 75 ML IV (11:13)
[2024-12-25] MEDS: LEVOTHYROXINE SODIUM 100 MCG TABLET PO (11:13)
[2024-12-25] MEDS: ASPIRIN 81 MG TABLET.DR PO (11:13)
--- NOTE | 2024-12-25 12:06 | PM.HP ---
HPI H&P: HPI History of Present Illness Chief complaint: AMS, FEVER, NEW ONSET A-FIB Narrative: Mr. Matthesw is a 79-year-old gentleman was brought to the emergency room with a complaint of fatigue, weakness, low grade temperature. Patient's 2 days ago. Patient had been exhausted over the last few days attending ceremonies. Patient denies any chest or abdominal pain. Denies any cough. Denies any dysuria or hematuria. He just feels weak and tired. No focal deficit. Opioid HPI Opioid Management Most Recent Pain and Opioid Data: Last Pain Assessment Today, 05:00 Last MAR Pain Assessment Today, 01:17 Last ORT Total Score 0 Today, 04:27 Last ORT Risk Category Low Risk Today, 04:27 Review of Systems ROS Status of ROS 10 or more systems reviewed and unremarkable except as noted in history and below [facility] Medical History (Updated 12/25/24 @ 12:14 by Rc Hernandez MD) GERD (gastroesophageal reflux disease) ?K21.9 - Gastro-esophageal reflux disease without esophagitis (ICD-10) Thrombocytopenia ?D69.6 - Thrombocytopenia, unspecified (ICD-10) Neutropenia ?D70.9 - Neutropenia, unspecified (ICD-10) FH: cholecystectomy ?Z83.79 - Family history of other diseases of the digestive system (ICD-10) Hypothyroid ?E03.9 - Hypothyroidism, unspecified (ICD-10) Arthritis ?M19.90 - Unspecified osteoarthritis, unspecified site (ICD-10) Non-alcoholic cirrhosis ?K74.60 - Unspecified cirrhosis of liver (ICD-10) Surgical History (Updated 04/30/23 @ 13:50 by Karena Monroe) H/O heart artery stent ?Z95.5 - Presence of coronary angioplasty implant and graft (ICD-10) Social History (Updated 12/25/24 @ 04:34 by Chikis Leon RN) Smoking status: Never smoker Highest level of school completed/degree received: Associate degree: occupational, technical, vocational program Are you now , , , , never or living with a partner: Little interest or pleasure in doing things: nearly every day Feeling down, depressed, or hopeless: nearly every day Life stressors: recent of family or friend Life stressor details: just passed Gender Identity: male Meds Home Medications and Allergies Home Medications ?Medication ?Instructions ?Recorded ?Confirmed ?Type aspirin 81 mg tablet,delayed 81 mg PO DAILY 04/30/23 12/25/24 History release (Adult Low Dose Aspirin) atorvastatin 20 mg tablet 20 mg PO DAILY 04/30/23 12/25/24 History clopidogrel 75 mg tablet 75 mg PO DAILY 04/30/23 12/25/24 History levothyroxine 100 mcg tablet 100 mcg PO DAILY 04/30/23 12/25/24 History multivitamin (Daily Multi-Vitamin 1 tab PO DAILY 04/30/23 12/25/24 History tablet) omega 8-zql-mpc-fish oil 1,000 mg 1 cap PO TID 04/30/23 12/25/24 History (120 mg-180 mg) capsule (Fish Oil) omeprazole 40 mg capsule,delayed 40 mg PO BID 04/30/23 12/25/24 History release tizanidine 4 mg tablet 4 mg PO BEDTIME 04/30/23 12/25/24 History Allergies Allergy/AdvReac Type Severity Reaction Status Date / Time No Known Drug Allergies Allergy Verified 12/25/24 00:31 Exam Narrative Exam Narrative: [pt is awake and alert. oriented to place, time and person HEENT: [place] conjunctiva and NL buccal mucosa Neck: Supple, no tenderness Endocrine: No Thyromegaly. Vascular: No JVD or carotid bruit. Lymphatic: No cervical lymphadenopathy. Chest: CTA no DTP. Heart RRR, no extra sound or murmur. Abd: Soft, no tenderness, no rebound and no rigidity. Increase abd girth therefore clinically I could not exclude the possibility of intra abd mass or organomegaly. LE: No cyanosis or clubbing, no varices or edema. Neuro: A A O. Nl speech, comprehension and attention. Nl and symetrical motor and tone examination through out. []] Constitutional Vital Signs, click to edit/add: Last Vital Signs Temp 98.8 F 12/25/24 08:00 Pulse 71 12/25/24 11:57 Resp 18 12/25/24 08:00 BP 98/53 12/25/24 08:00 Pulse Ox 92 L 12/25/24 08:00 O2 Del Method Room Air 12/25/24 08:00 Results Labs Labs: Short CBC 12/25/24 12/25/24 Range/Units 00:49 06:09 WBC 6.8 5.2 (4.0-11.0) 10^3/uL Hgb 10.2 L 9.0 L (14.0-18.0) g/dL Hct 32.0 L 28.1 L (42.0-54.0) % Plt Count 82 L 73 L (150-450) 10^3/uL BMP 12/25/24 00:49 Sodium 140 Potassium 3.8 Chloride 108 H Carbon Dioxide 22.4 BUN 17.0 Creatinine 0.90 Glucose 147 H Calcium 8.4 L Liver Function 12/25/24 Range/Units 00:49 Total Bilirubin 1.0 (0.2-1.0) mg/dL AST 76 H (15-37) U/L ALT 61 (16-63) U/L Alkaline Phosphatase 147 H (46-116) U/L Albumin 2.9 L (3.4-5.0) g/dL Urine 12/25/24 Range/Units 02:15 Urine Color Yellow (YELLOW) Urine Clarity Clear (CLEAR) Urine pH 5.5 (5.0-9.0) Ur Specific [place] >=1.030 A (1.005-1.025) Urine Protein Negative (NEG/TRACE) mg/dL Urine Glucose (UA) Negative (NEGATIVE) mg/dL Assessment and Plan Assessment and Plan (1) Atrial fibrillation: (2) Fever: (3) Portal hypertension: (4) GAVE (gastric antral vascular ectasia): (5) Steatohepatitis: Plan Fatigue, exhaustion, low-grade temperature. Patient has been exhausted arranging and attending service for his 2 days ago. Thus far, infectious workup has been unrevealing. White count is normal. Blood cultures pending. Lactic was elevated which had returned to baseline. This could be due to transient organ hypoperfusion secondary to dehydration. UA showed RBCs but few WBC. Requested urine culture. Chest x-ray showed chronic changes. Patient does not have acute respiratory symptoms. Influenza A and B, COVID are negative. Requested to check RSV. Other viruses could not be checked here at [facility] including but not limited to parainfluenza, adenovirus, Bordetella, human Kerrick pneumo virus and others. Empiric treatment with ceftriaxone pending culture report. Showers of A-fib. Intermittent PVCs followed by pauses Suspect patient may have sick sinus syndrome. History of CAD and stenting for which patient is on dual antiplatelets therapy and statin No prior history of A-fib rate is controlled. Requested echocardiogram. Rate is controlled. Patient is known to have thrombocytopenia secondary to steatohepatitis. Patient also was noted to have total hypertension, gastropathy, colon polyp, hemorrhoids which put him at risk having bleed if he would be started on anticoagulation for A-fib. Patient is already on dual antiplatelets therapy cleared by GI. Requested cardiology consultation. Defer further needed diagnostic and therapeutic intervention relative to his cardiovascular status to cardiology team. Anemia, thrombocytopenia Known history of nonalcoholic steatohepatitis associated with anemia, thrombocytopenia, recent diagnosis of portal hypertension, gastric antral vascular ectasia, colon polyp and hemorrhoids. 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 Him to resume dual antiplatelets. He did not clear him to initiate anticoagulation. I discussed anticoagulation risk and benefit with the patient, his 2 sons and 2 daughters in law. Risk of the bleed versus risk of embolic stroke prevention. Patient and family is to make final decision based on their comfort level after understanding risk/benefit ratio. My personal recommendation is to avoid anticoagulation. Meanwhile continue patient on PPI Microscopic hematuria Likely due to thrombocytopenia while taking dual antiplatelets. I could not exclude other possible etiologies such as urological malignancy that may need to be addressed. Could be addressed in the outpatient setting by urology. He may need to have cystoscopy and additional imaging to rule out urological malignancy. Hypothyroidism Resume Synthroid, check TSH Chronic, subacute medical conditions not listed above, abnormal labs and imaging. These would need to be addressed. Could be addressed later on or in the outpatient setting by PCP collaboration with other needed outpatient providers when time and condition are appropriate. Patient's status is dynamic and evolutionary therefore the aforementioned assessment and plan may or may not be complete or conclusive. The patient would likely require to have additional workup and investigation and therapeutic intervention that will be determined based on the clinical progression and follow-up test results. I discussed this case with his 2 sons and 2 daughters / in laws Urinary Catheter Management Urinary Catheter Management Straight: Cath placed during this visit: yes Urethral indwelling: No Insertion date: 12/25/24 Insertion time: 02:15
--- NOTE | 2024-12-25 13:11 | SWNOTE1 ---
Important Message from [employer] reviewed and discussed with patient. Pt. verbalized understanding and signed the form. Original given to patient and copy placed in patient?s chart.
--- NOTE | 2024-12-25 13:13 | SWNOTE1 ---
SW met with pt's son and daughter in law in [facility], nurse in room with patient. Pt's son and daughter in law live outside of [place]. They do plan on staying for a few days after pt is discharged to make sure he settles in. They do call pt on a daily basis. There is no other family in the area. There is at least on friend/couple that they can call to go over and check on pt physically if needed. Pt did lost his the other day and they voiced he could have been exhausted and dehydrated and this is contributing to everything. Pt is independent at home and gets around well. No DME used. Family voiced no anticipated discharge needs at this time. SW to follow as needed.
[2024-12-25] MEDS: ALBUMIN HUMAN 25 GM/100 ML PREMIX IV (14:20)
[2024-12-25] MEDS: MIDODRINE HCL 5 MG TABLET PO (17:41)
--- NOTE | 2024-12-25 18:00 | P.CACN_ITS ---
History of Present Illness History of Present Illness Consult date: 12/25/24 Requesting physician: Rc Hernandez Chief complaint: AMS, FEVER, NEW ONSET A-FIB Narrative: The patient is a 79-year-old male with prior history of coronary artery disease and stent, he has history of nonalcoholic cirrhosis with thrombocytopenia and portal hypertension and gastropathy/gastric antral vascular ectasia, he has history of anemia with positive heme in stool and he receives iron infusion regularly. He also has history of hypothyroidism. Couple days ago his and after finishing the he was very tired and he slept for a long time. He was not eating or drinking well the last week or so. He got up to go to the bathroom and he could not because he was very weak. It was reported that he had fever when he arrived to the hospital and he was found to have cystitis and started on antibiotics. His EKG was interpreted as atrial fibrillation but looking further on it it is sinus rhythm with frequent PACs sometimes in couplets and triplets, there was otherwise no acute T or ST changes. He continues to have irregular rhythm on the monitor but it is sinus rhythm with frequent PACs and occasional short pauses the longest is 1.4 seconds followed by junctional beats then he resumes the sinus rhythm. HS Troponin is 36, BNP 673 which is normal. LDL 41. Creatinine 0.9, hemoglobin 9 and platelets 73. TSH normal at 1.195. He received also IV fluid. He already feels better He denies any prior history of dizziness or syncope or near syncope. He has been very busy over the last 3 to 4 months going with his from 1 place to another because she was very sick and he was physically very active. He denies any chest pain or shortness of breath at rest or with exertion. He denies orthopnea or paroxysmal nocturnal dyspnea. He has legs edema due to cirrhosis. He denies that he had ascites or paracentesis in the past. He denies any palpitation or prior history of arrhythmia. He denies smoking, alcohol or illicit drugs. Of note his blood pressure has been on the low side and he was started on midodrine as needed. Review of Systems ROS Narrative All systems were reviewed and they were negative except for the positive findings noted above in the history [facility] Medical History (Updated 12/25/24 @ 18:14 by Irene Mercado MD) GERD (gastroesophageal reflux disease) ?K21.9 - Gastro-esophageal reflux disease without esophagitis (ICD-10) Thrombocytopenia ?D69.6 - Thrombocytopenia, unspecified (ICD-10) Neutropenia ?D70.9 - Neutropenia, unspecified (ICD-10) FH: cholecystectomy ?Z83.79 - Family history of other diseases of the digestive system (ICD-10) Hypothyroid ?E03.9 - Hypothyroidism, unspecified (ICD-10) Arthritis ?M19.90 - Unspecified osteoarthritis, unspecified site (ICD-10) Non-alcoholic cirrhosis ?K74.60 - Unspecified cirrhosis of liver (ICD-10) Surgical History (Updated 04/30/23 @ 13:50 by Karena Monroe) H/O heart artery stent ?Z95.5 - Presence of coronary angioplasty implant and graft (ICD-10) Social History (Updated 12/25/24 @ 04:34 by Chikis Leon RN) Smoking status: Never smoker Highest level of school completed/degree received: Associate degree: occupational, technical, vocational program Are you now , , , , never or living with a partner: Little interest or pleasure in doing things: nearly every day Feeling down, depressed, or hopeless: nearly every day Life stressors: recent of family or friend Life stressor details: just passed Gender Identity: male Meds Home Medications and Allergies Home Medications ?Medication ?Instructions ?Recorded ?Confirmed ?Type aspirin 81 mg tablet,delayed 81 mg PO DAILY 04/30/23 1 History release (Adult Low Dose Aspirin) atorvastatin 20 mg tablet 20 mg PO DAILY 04/30/2306/16 History clopidogrel 75 mg tablet 75 mg PO DAILY 04/30/2306/16 History levothyroxine 100 mcg tablet 100 mcg PO DAILY 04/30/23 12/25/24 History multivitamin (Daily Multi-Vitamin 1 tab PO DAILY 04/3012/25/24 History tablet) omega 0-oxz-amv-fish oil 1,000 mg 1 cap PO TID 4 12/25/24 History (120 mg-180 mg) capsule (Fish Oil) omeprazole 40 mg capsule,delayed 40 mg PO BID 04/30/23 12/25/24 History release tizanidine 4 mg tablet 4 mg PO BEDTIME 04/30/2306/16 History Allergies Allergy/AdvReac Type Severity Reaction Status Date / Time No Known Drug Allergies Allergy Verified 12/25/24 00:31 Exam Narrative Exam Narrative: He is alert, oriented, not in apparent distress next HEENT within normal limits Neck supple normal range of motion, jugular venous pressure is normal, no carotid bruit Lungs clear to auscultation without rales or rhonchi or wheezes Cardiovascular system regular with occasional premature beats, normal S1 and S2, no murmur or gallop or click Abdomen soft benign no organomegaly or tenderness Extremities +2 edema bilaterally Neurological examination grossly normal Constitutional Vital Signs, click to edit/add: Last Vital Signs Temp 98.0 F 12/25/24 16:47 Pulse 84 12/25/24 16:47 Resp 16 12/25/24 16:47 BP 110/68 12/25/24 16:47 Pulse Ox 92 L 12/25/24 16:47 O2 Del Method Room Air 12/25/24 16:47 Results Labs and Meds Lab results: Cardiac Enzymes 12/25/24 Range/Units 00:49 AST 76 H (15-37) U/L CBC 12/25/24 12/25/24 Range/Units 00:49 06:09 WBC 6.8 5.2 (4.0-11.0) 10^3/uL RBC 3.45 L 3.02 L (4.70-6.10) 10^6/uL Hgb 10.2 L 9.0 L (14.0-18.0) g/dL Hct 32.0 L 28.1 L (42.0-54.0) % Plt Count 82 L 73 L (150-450) 10^3/uL Comprehensive Metabolic Panel 12/25/24 Range/Units 00:49 Sodium 140 (136-145) mmol/L Potassium 3.8 (3.5-5.1) mmol/L Chloride 108 H (98-107) mmol/L Carbon Dioxide 22.4 (21.0-32.0) mmol/L BUN 17.0 (7.0-18.0) mg/dL Creatinine 0.90 (0.70-1.30) mg/dL Glucose 147 H (74-106) mg/dL Calcium 8.4 L (8.5-10.1) mg/dL AST 76 H (15-37) U/L ALT 61 (16-63) U/L Alkaline Phosphatase 147 H (46-116) U/L Total Protein 6.7 (6.4-8.2) g/dL Albumin 2.9 L (3.4-5.0) g/dL Intake and Output 12/25/24 12/25/24 12/25/24 07:59 15:59 23:59 Intake Total 641.667 / 641.667 250 / 520 270 / 520 Output Total 175 / 175 Balance 641.667 / 641.667 75 / 345 270 / 345 Intake: Oral 250 / 370 120 / 370 IV 641.667 / 641.667 150 / 150 0.9 % Sodium Chloride 1,000 ml 641.667 / 641.667 @ 100 mls/hr IV .Q10H [facility] Rx#: [id number] Albumin Human 25 gm In 100 ml @ 100 / 100 100 mls/hr IV ONCE ONE Rx#: [id number] Ceftriaxone 1,000 mg In 0.9 % 50 / 50 Sodium Chloride 50 ml @ 100 mls /hr IV Q24H [facility] Rx#:[id number] Output: Urine 175 / 175 Other: # Voids 200 # Bowel Movements 1 Weight 81.3 kg 02592, on arrival showed sinus rhythm with frequent PACs and couplets and triplets, left anterior fascicular block, and old anterolateral infarct Echo today 12/25/2024 Normal left ventricle systolic function, ejection fraction above 55% Mild pulmonary hypertension, RVSP 40 mmHg No significant valvular abnormalities Assessment and Plan Assessment and Plan (1) Atrial fibrillation: Assessment and Plan: Reviewing EKG and the monitor patient did not have A-fib, he has sinus rhythm with frequent PACs sometimes in couplets and triplets, he has occasional junctional beats with prolonged RR interval with the longest 1.4 seconds, all asymptomatic (2) Hypotension: (3) Coronary artery disease: Assessment and Plan: Clinically stable. He is on aspirin and Plavix and atorvastatin (4) H/O heart artery stent: (5) Hyperlipidemia: Assessment and Plan: He is on atorvastatin (6) Steatohepatitis: Assessment and Plan: An alcoholic hepatic cirrhosis complicated by portal hypertension, thrombocytopenia, and gastropathy (7) Portal hypertension: (8) Thrombocytopenia: (9) GAVE (gastric antral vascular ectasia): (10) Anemia: Assessment and Plan: Heme positive in stool. He receives iron infusion regularly (11) Hypothyroid: Assessment and Plan: Well-controlled on Synthroid Plan Continue aspirin, Plavix, atorvastatin, and Synthroid Continue monitoring rhythm As mentioned above the patient never been in atrial fibrillation, at this point no need to consider anticoagulation He has frequent PACs but I did not start him on any beta-yadira due to occasions of short pauses up to 1.4 seconds followed by junctional beats which has been asymptomatic and not persistent He should be discharged home with 30-day event monitor to evaluate his arrhythmia further and decide if he needs any further cardiac workup or management If during hospital stay he develops any longer pauses please contact our service If he discharged home with 30-day event monitor please arrange for him for outpatient follow-up in about 1 month Irene Mercado MD, FACC
--- OUTSIDE RECORDS SUMMARY | 2024-12-25 20:27 | XMS_ITS | Continuity of Care Document ---
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 Team Status: Inactive Member Role Status Dates Frantz Conley II MD Primary Care Provider Active Start: November 02, 2024 End: November 02, 2024 Mick Branch MD Attending Provider Active S tart: November 02, 2024 End: November 02, 2024 Visit Care Team Team Status: Inactive Member Role Status Dates Frantz Conley II MD Primary Care Provider Active Start: November 11, 2024 End: November 11, 2024 Mick Branch MD Attending Provider Active S tart: November 11, 2024 End: November 11, 2024 Patient Care Team Team Status: Inactive Member Role Status Dates Rc Hernandez MD Attending Provider Active Sta rt: December 25, 2024 End: December 25, 2024 Chief Complaint and Reason for Visit Chief Complaint Admit Date k75.81 k76.0 k31.819 November 02, 2024 1 :22pm cirrohosis November 11, 2024 1: 26pm Unknown December 25, 2024 2: 15am Reason for Visit Admit Date Cirrhosis, nonalcoholic November 11 1:26pm Esophageal varices November 11, 2024 1: 26pm GAVE (gastric antral vascular ectasia) A ugust 2024 1:26pm Iron deficiency anemia November 11, 2024 1:26pm Metabolic dysfunction-associated steatoh epatitis (MASH) November 11, 2024 1:26pm Metabolic dysfunction-associ ated steatotic liver disease (MASLD) November 11, 2024 1:26pm Pancytopenia, acquired November 11, 2024 1:26pm Allergies, Adverse Reactions, Alerts Allergen Type Severity Reaction Last Updated Verified Status No Known Allergies Allergy Unknown November 11, 2024 1:3 6pm Yes Active Social History Smoking Status Status Start Date End Date Date of Observa tion Never smoked tobacco (finding) October 23, 2023 9:13am Observation Status Observation Response Date of Response Legal Sex Male (finding) Sex Assigned At Male [birth year] 30, 1 947 Family History Relationship Condition Age at Onset Recorded Date/T tanja brother Malignant neoplasm of lung Unknown mother Disorder of liver Unknown father Chronic obstructive pulmonary disease Unk nown sister Epilepsy Unknown Malignant neoplasm Unknown sister Epilepsy Unknown Type 2 diabetes mellitus Unknown brother Suicide Unknown brother Chronic obstructive pulmonary disease Unk nown sister Chronic obstructive pulmonary disease Unk nown Problems Active Problems Medical Problem Onset Date Status Metabolic dysfunction-associated steatotic liver disease (MASLD) Unknown Active Metabolic dysfunction-associated steatohepatitis (MASH) Unknown Active Pancytopenia, acquired Unknown Active GAVE (gastric antral vascular ectasia) Unknown Active Esophageal varices Unknown Active Iron deficiency anemia Unknown Active Cirrhosis, nonalcoholic Unknown Active Inactive/Resolved Problems Medical Problem Onset Date Status Non-alcoholic fatty liver disease Unknown Resolved 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 hepatitis (SCANLON) Unknown Resolved Nonalcoholic steatohepatitis (SCANLON) Unknown Resolved Calculus of gallbladder with cholecystitis Unkno wn Resolved Medications Medication Status Dose Units Route Directions Qty Days St art Date Stop Date End Date Instructions Adherence Multivitami n Tablet Active 1 TAB PO Every morning 2021 1:00am Unknown Atorvastati n 20 mg tablet Active 20 MG PO Every morning 2021 1:00am Unknown Tizanidine 4 mg tablet Discont inued 4 MG PO Daily at bedtime 2021 1:00am August 08, 2022 1:55p m Clopidogrel 75 mg tablet Active 75 MG PO Every morning 2021 1:00am Unknown Omeprazole 40 mg capsule,del ayed release(DR/ EC) Discont inued 40 MG PO Twice daily as needed for Heartburn 2021 1:00am September 17, 2023 11:11 am Aspirin 81 mg Tablet,Qi yed Release (Dr/Ec) Discont inued 81 MG PO Every morning 2021 1:00am September 17, 2023 11:09 am Levothyroxi ne 100 mcg tablet Discont inued 100 MCG PO Every morning 2021 1:00am October 09, 2023 8:44a m Craig 3-Dha-Epa-F jeni Oil (Fish Oil) 1,000 mg (120 mg-180 mg) Capsule Active 1 CAP PO Three times daily 2021 1:00am Unknown Hydrocodone -Acetaminop hen 5-325 mg tablet Discont inued 1 TAB PO Q6H as needed for pain 30 7 2021September 19, 2021 11:42 am Omeprazole 40 mg capsule,del ayed release(DR/ EC) Discont inued 40 MG PO Twice daily as needed for Heartburn September 17, 2023 11:10a m 2024 2:21p m Levothyroxi ne 88 mcg tablet Active 88 MCG PO Daily October 09, 2023 12:00a m Unknown Tizanidine 4 mg tablet Active 4 MG PO Twice daily as needed for muscle spasticity October 09, 2023 12:00a m FreeTextSi tablet as needed Orally bid prn; Note: Source Status: Taking; Provider: Sarina Barton ( ) Unknown Carvedilol 3.125 mg tablet Discont inued 3.125 MG PO Twice daily 60 October 23, 2023 12:00a m u 2024 2:21p m must administer with a meal/food Meclizine 25 mg tablet Discont inued 25 MG PO Daily September 17, 2023 12:00a m October 09, 2023 8:46a m Carvedilol 3.125 mg tablet Discont inued 3.125 MG PO Twice daily 60 30 2024 2:13pm Augus t 2024 1:37p m must administer with a meal/food Omeprazole 40 mg capsule,del ayed release(DR/ EC) Discont inued 40 MG PO Daily 2024 2:14pm Febru leonid 2024 2:25p m Omeprazole 40 mg capsule,del ayed release(DR/ EC) Active 40 MG PO Daily 30 30 2024 2:25pm Unknown Immunizations Immunization Event Date Not Given Reason Dose Number Linoleum Installer Lot Number Vaccine Information Statement (VIS) Detail Administration Location COVID-19 Ad26.COV2.S (Definigen) March 01, 2021 COVID-19 mRNA-1273 (Moderna) April 28, 2020 COVID-19 mRNA-1273 (Moderna) May 26, 2020 Procedures Procedure Date Performed Status Urine Culture December 25, 2024 active Relevant Diagnostic Tests and/or Laboratory Data Laboratory Results Test Collection Date/Time Result Date/Time Result Interpretation Reference Range Result Comment Performing Site Corrected White Blood Count November 02, 2024 1:34pm November 02, 2024 2:11pm 3.0 10*3/uL Below low normal 4.1-10.5 [facility] [id number] [address] [facility] [address] Uncorrect ed WBC Count November 02, 2024 1:34pm November 02, 2024 2:11pm 3.0 10*3/uL Below low normal 4.1-10.5 [facility] [id number] [address] [facility] [address] Red Blood Count November 02, 2024 1:34pm November 02, 2024 2:11pm 3.58 10*6/uL Below low normal 3.90-5.60 [facility] [id number] [address] [facility] [address] Hemoglobi n November 02, 2024 1:34pm November 02, 2024 2:11pm 11.4 g/dL Below low normal 13.0-17.0 [facility] [id number] [address] [facility] [address] Hematocri t November 02, 2024 1:34pm November 02, 2024 2:11pm 34.1 % Below low normal 38.8-50.0 [facility] [id number] [address] [facility] [address] Mean Corpuscul ar Volume November 02, 2024 1:34pm November 02, 2024 2:11pm 95.2 fL 83.5-101 [facility] [id number] [address] [facility] [address] Mean Corpuscul ar Hemoglobi n November 02, 2024 1:34pm November 02, 2024 2:11pm 31.9 pg 27.5-35.2 [facility] [id number] [address] [facility] [address] Mean Corpuscul ar Hemoglobi n Concent November 02, 2024 1:34pm November 02, 2024 2:11pm 33.5 g/dL 32.5-35.6 [facility] [id number] [address] [facility] [address] Red Cell Distribut ion Width November 02, 2024 1:34pm November 02, 2024 2:11pm 16.4 % Above high normal 12.0-14.8 [facility] [id number] [address] [facility] [address] Platelet Count November 02, 2024 1:34pm November 02, 2024 2:11pm 102 10*3/uL Below low normal 150-450 [facility] [id number] [address] [facility] [address] Mean Platelet Volume November 02, 2024 1:34pm November 02, 2024 2:11pm 8.0 fL 6.6-10.1 [facility] [id number] [address] [facility] [address] Neutrophi ls (%) (Auto) November 02, 2024 1:34pm November 02, 2024 2:11pm 74.9 % . [facility] [id number] [address] [facility] [address] Lymphocyt es (%) (Auto) November 02, 2024 1:34pm November 02, 2024 2:11pm 15.8 % . [facility] [id number] [address] [facility] [address] Monocytes (%) (Auto) November 02, 2024 1:34pm November 02, 2024 2:11pm 6.7 % . [facility] [id number] [address] [facility] [address] Eosinophi ls (%) (Auto) November 02, 2024 1:34pm November 02, 2024 2:11pm 1.8 % . [facility] [id number] [address] [facility] [address] Basophils (%) (Auto) November 02, 2024 1:34pm November 02, 2024 2:11pm 0.8 % . [facility] [id number] [address] [facility] [address] Nucleated RBC Relative Count (auto) November 02, 2024 1:34pm November 02, 2024 2:11pm 0.0 /100{WB C} 0-0.5 [facility] [id number] [address] [facility] [address] Neutrophi ls # (Auto) November 02, 2024 1:34pm November 02, 2024 2:11pm 2.2 10*3/uL 1.8-7.7 [facility] [id number] [address] [facility] [address] Lymphocyt es # (Auto) November 02, 2024 1:34pm November 02, 2024 2:11pm 0.5 10*3/uL Below low normal 1.00-4.8 [facility] [id number] [address] [facility] [address] Monocytes # (Auto) November 02, 2024 1:34pm November 02, 2024 2:11pm 0.2 10*3/uL 0.0-0.8 [facility] [id number] [address] [facility] [address] Eosinophi ls # (Auto) November 02, 2024 1:34pm November 02, 2024 2:11pm 0.1 10*3/uL 0.0-0.45 [facility] [id number] [address] [facility] [address] Basophils # (Auto) November 02, 2024 1:34pm November 02, 2024 2:11pm 0.0 10*3/uL 0.0-0.2 [facility] [id number] [address] [facility] [address] Prothromb in Time November 02, 2024 1:34pm November 02, 2024 2:34pm 13.5 s Above high normal 9.0-12.9 A hematocrit value greater than 55% may lead to inaccurate results in coagulation testing. Patients having hematocrit values >55% require a special collection tube for coagulation studies. Please contact the laboratory at [phone] for redraw instructions . [facility] [id number] [address] [facility] [address] Prothromb Time Internati onal Ratio November 02, 2024 1:34pm November 02, 2024 2:34pm 1.2 INR Therapeutic Range A) Pre- and Peroperative OAT started two weeks before surgery. NOT HIP SURGERY: 1.5 - 2.5 HIP SURGERY: 2 - 3B) Primary and secondary prevention of venous THROMBOSIS: 2 - 3C) Active venous thrombosis, pulmonary embolismand prevention of recurrent venous thrombosis: 2 - 3D) Prevention of arterial thromboembol ismincluding patients with mechanical heart valves: 3 - 4.5 [facility] [id number] [address] [facility] [address] Glucose Level November 02, 2024 1:34pm November 02, 2024 2:45pm 120 mg/dL Above high normal 70-100 ADA recommended reference rangeRandom Glucose Reference Range is dependent on time and content of last meal. Glucose of more than 200 mg/dL in a nonstressed, ambulatory subject supports the diagnosis of Diabetes Mellitus. [facility] [id number] [address] [facility] [address] Blood Urea Nitrogen November 02, 2024 1:34pm November 02, 2024 2:45pm 15 mg/dL 7-25 [facility] [id number] [address] [facility] [address] Creatinin e November 02, 2024 1:34pm November 02, 2024 2:45pm 0.71 mg/dL 0.70-1.30 [facility] [id number] [address] [facility] [address] Estimated GFR (CKD-EPI) November 02, 2024 1:34pm November 02, 2024 2:45pm > 60.0 mL/Min [facility] [id number] [address] [facility] [address] Sodium Level November 02, 2024 1:34pm November 02, 2024 2:45pm 141 mmol/L 136-145 [facility] [id number] [address] [place] [id number] Potassium Level November 02, 2024 1:34pm November 02, 2024 2:45pm 3.9 mmol/L 3.5-5.1 [facility] [id number] [address] [place] [id number] Chloride Level November 02, 2024 1:34pm November 02, 2024 2:45pm 110 mmol/L Above high normal 98-107 [facility] [id number] [address] [place] [id number] Carbon Dioxide Level November 02, 2024 1:34pm November 02, 2024 2:45pm 29.1 mmol/L 21.0-31.0 [facility] [id number] [address] [place] [id number] Anion Gap November 02, 2024 1:34pm November 02, 2024 2:45pm 5.8 mEq/L Below low normal 6.0-15.0 [facility] [id number] [address] [facility] [address] Calcium Level November 02, 2024 1:34pm November 02, 2024 2:45pm 7.9 mg/dL Below low normal 8.6-10.3 [facility] [id number] [address] [facility] [address] Total Protein November 02, 2024 1:34pm November 02, 2024 2:45pm 5.8 g/dL Below low normal 6.4-8.9 [facility] [id number] [address] [facility] [address] Albumin November 02, 2024 1:34pm November 02, 2024 2:45pm 3.1 g/dL Below low normal 3.5-5.7 [facility] [id number] [address] [facility] [address] Globulin November 02, 2024 1:34pm November 02, 2024 2:45pm 2.7 g/dL [facility] [id number] [address] [place] [address] Albumin/G lobulin Ratio November 02, 2024 1:34pm November 02, 2024 2:45pm 1.1 [facility] [id number] [address] [place] [address] Total Bilirubin November 02, 2024 1:34pm November 02, 2024 2:45pm 0.9 mg/dL 0.3-1.0 [facility] [id number] [address] [place] [address] Aspartate Amino Transf (AST/SGOT ) November 02, 2024 1:34pm November 02, 2024 2:45pm 58 U/L Above high normal 13-39 [facility] [id number] [address] [place] [address] Alanine Aminotran sferase (ALT/SGPT ) November 02, 2024 1:34pm November 02, 2024 2:45pm 52 U/L 7-52 [facility] [id number] [address] [place] [address] Alkaline Phosphata se November 02, 2024 1:34pm November 02, 2024 2:45pm 124 U/L Above high normal 34-104 [facility] [id number] [address] [place] [address] Pharmacy Creatinin e Clearance (Chem November 02, 2024 1:34pm November 02, 2024 2:45pm N/A [facility] [id number] [address] [place] [address] Vital Signs Vital Reading Result Reference Range Collection Date/Time Height 62 [in_i] November 11 1:33pm Weight 80.28 kg November 11 1:33pm Heart Rate 61 /min 60-100 November 11 1:33pm BP Systolic 120 mm[Hg] 100-140 November 11 1:33pm BP Diastolic 79 mm[Hg] 60-100 November 11 1:33pm BMI (Body Mass Index) 32.3 kg/m2 November 11, 2024 1:33pm Advance Directives Advance Directive Response Recorded Date/ Time Advance Directives No April 24, 2021 10:52am Insurance Providers Guarantor Pankaj Matthews Address [address] [place] [phone] Contact Info. Home Phone: Payer Policy Id Subscriber's Name Subscriber Id Effectiv e Date Expiration Date Medicare [id number] Pankaj Keating [place] [id number] [facility] [id number] Pankaj Matthews [id number] Encounters Encounter Location(s) Arrival/Admit Date Discharge/Depart Date Provider(s) Departed Clinical -Lab [facility] November 02, 2024 1:22pm November 02, 2024 1:23pm Mick Branch MD Departed Physician/Prov ider Office Visit -[facility] November 11, 2024 1:26pm November 11, 2024 2:01pm Mick Branch MD Departed Referred -LAB [facility] December 25, 2024 2:15am December 25, 2024 2:16am Rc Hernandez MD Recent Diagnosis Onset Date Admit Date Cirrhosis, nonalcoholic Unknown October 242024 1:26pm Esophageal varices Unknown November 11, 2024 1:26pm GAVE (gastric antral vascular ectasia) Unknown November 11, 2024 1:26pm Iron deficiency anemia Unknown November 112024 1:26pm Metabolic dysfunction-associ ated steatohepatitis (MASH) Unknown November 11, 2024 1:26pm Metabolic dysfunction-associ ated steatotic liver disease (MASLD) Unknown November 11, 2024 1:26pm Pancytopenia, acquired Unknown November 112024 1:26pm Assessments Diagnosis Onset Date Resolution Status Admit Date Cirrhosis, nonalcoholic acute A ugust 2024 1:26pm Esophageal varices acute November 11, 2024 1:26pm GAVE (gastric antral vascula r ectasia) acute November 11 1:26pm Iron deficiency anemia acute Au 2024 1:26pm Metabolic dysfunction-associ ated steatohepatitis (MASH) acute November 112024 1:26pm Metabolic dysfunction-associ ated steatotic liver disease (MASLD) acute November 11, 2024 1:26pm Pancytopenia, acquired chronic Au 2024 1:26pm Plan of Treatment Author Mick Branch [facility] Authored November 11, 2024 2: 09pm The patient is continued on clopidogrel by his care team. We will recommend that this is reviewed and the necessity of it strongly considered. This patient has incurable bleeding risks from his cirrhosis which cannot be definitively treated with endoscopic therapy, they will continue to do small amounts of blood regardless of any endoscopic procedures that we do. His liver disease overall is stable and compensated at this time. We will continue omeprazole 40 mg daily. I will obtain his outside records from his PCP to see how low his blood pressures were running. He has cirrhosis so I expect his blood pressures to run low, his dose of carvedilol was extremely small and it is very beneficial to his clinically significant portal hypertension and bleeding for him to remain on this. We will restart it if his blood pressures were at an acceptable range from a GI standpoint. I will plan to see him back in the early spring and we will schedule his repeat EGD for variceal surveillance at that time. High complexity medical decision making. I spent greater than 40 minutes for services relating to this encounter on this date, including reviewing other provider documentation, labs and radiology studies, endoscopy reports, discussion and counseling with patient/family and formulating a plan of care. Reviewing the chart prior to the visit. Time spent after the visit on documentation. Future Tests Future scheduled test information is unavailable Pending Tests Test Name Ordered Date Scheduled Date Urine Culture December 25, 2024 2:15am Future Visits Future appointment information is unavailable Referrals to Other Providers Referral information is unavailable Future Procedures Procedure Name Ordered Date Scheduled Date Urine Culture December 25, 2024 8:43pm December 25, 2024 2:15am Future Medications Future medication information is unavailable Patient Instructions Patient instructions are unavailable
[2024-12-25] MEDS: ATORVASTATIN CALCIUM 20 MG TABLET PO (21:26)
[2024-12-26] VITALS (10 sets, daily range): BP systolic 96–106; BP diastolic 58–66; PULSE 64–88; TEMP 37–37.2; O2SAT 92–94
[2024-12-26 07:09] LABS: Hematocrit 27.2 % (42.0-54.0); Hemoglobin 8.5 g/dL (14.0-18.0); Mean Corpuscular HGB Conc 31.3 g/dL (29.9-35.2); Mean Corpuscular Hemoglobin 29.4 pg (25.9-34.0); Mean Corpuscular Volume 94.1 fL (80.0-94.0); Platelet Count 58 10^3/uL (150-450); Red Blood Count 2.89 10^6/uL (4.70-6.10); White Blood Count 2.6 10^3/uL (4.0-11.0)
[2024-12-26 07:33] LABS: Alanine Aminotransferase 35 U/L (16-63); Albumin Globulin Ratio 0.7; Albumin Level 2.1 g/dL (3.4-5.0); Alkaline Phosphatase 107 U/L (46-116); Anion Gap 9.4; Aspartate Amino Transferase 41 U/L (15-37); Blood Urea Nitrogen 15.0 mg/dL (7.0-18.0); Calcium 7.5 mg/dL (8.5-10.1); Carbon Dioxide 25.1 mmol/L (21.0-32.0); Chloride 111 mmol/L (98-107); Estimated GFR (African America >60 (>=60 mL/min/1.73m^2); Estimated GFR (Non-African Ame >60 (>=60 mL/min/1.73m^2); Globulin 3.1 g/dL; Glucose 123 mg/dL (74-106); Potassium 3.5 mmol/L (3.5-5.1); Sodium 142 mmol/L (136-145); Total Protein 5.2 g/dL (6.4-8.2)
[2024-12-26] MEDS: ASPIRIN 81 MG TABLET.DR PO (08:02)
[2024-12-26] MEDS: LEVOTHYROXINE SODIUM 100 MCG TABLET PO (08:02)
[2024-12-26] MEDS: CLOPIDOGREL BISULFATE 75 MG TABLET PO (08:02)
[2024-12-26] MEDS: MULTIVITAMIN TABLET 1 TAB PO (08:02)
[2024-12-26] MEDS: MIDODRINE HCL 5 MG TABLET PO ×2 (08:02→11:10)
[2024-12-26] MEDS: PANTOPRAZOLE SODIUM 40 MG TABLET.DR PO (08:02)
[2024-12-26] MEDS: POTASSIUM CHLORIDE 10 MEQ ER TABLET 30 MEQ PO (11:11)
--- NOTE | 2024-12-26 13:50 | PM.DS1 ---
DS: Providers Provider Date of admission: 12/25/24 04:03 Primary care physician: BERNARD SANCHEZ Admitting clinician: Rc Hernandez Attending physician on admission: Rc Hernandez Consults: 12/25/24 Consult to Dietitian Routine Reason for consultation: poor appettite 12/25/24 07:39 Consult to Cardiology Routine Reason for consultation: New Afib. Please address rate, rhythm control and anti coag Attending physician on discharge: ROBERTO WOODWARD Discharging clinician: ROBERTO WOODWARD Anticipated date of discharge: 12/26/24 DS: Diagnosis Discharge Diagnosis (1) Hypotension: (2) Coronary artery disease: (3) H/O heart artery stent: (4) Hyperlipidemia: (5) Steatohepatitis: (6) Portal hypertension: (7) Thrombocytopenia: (8) GAVE (gastric antral vascular ectasia): (9) Anemia: (10) Hypothyroid: DS: Summary Hospital Course Hospital Course: This is a 79-year-old man who came to the emergency room just a few hours after completing his 's , with complaints of fatigue and weakness and low-grade temperatures. The patient had been under tremendous stress caring for his for over 3 months. As part of his workup in the emergency room the ER thought that they saw atrial fibrillation. This is in the combination of low-grade fevers did prompt him to be admitted to the hospital. The patient was seen by cardiology on Saturday afternoon. Cardiology found that he did not have atrial fibrillation. I will import cardiology's impression below.... The patient is a 79-year-old male with prior history of coronary artery disease and stent, he has history of nonalcoholic cirrhosis with thrombocytopenia and portal hypertension and gastropathy/gastric antral vascular ectasia, he has history of anemia with positive heme in stool and he receives iron infusion regularly. He also has history of hypothyroidism. Couple days ago his and after finishing the he was very tired and he slept for a long time. He was not eating or drinking well the last week or so. He got up to go to the bathroom and he could not because he was very weak. It was reported that he had fever when he arrived to the hospital and he was found to have cystitis and started on antibiotics. His EKG was interpreted as atrial fibrillation but looking further on it it is sinus rhythm with frequent PACs sometimes in couplets and triplets, there was otherwise no acute T or ST changes. He continues to have irregular rhythm on the monitor but it is sinus rhythm with frequent PACs and occasional short pauses the longest is 1.4 seconds followed by junctional beats then he resumes the sinus rhythm. HS Troponin is 36, BNP 673 which is normal. LDL 41. Creatinine 0.9, hemoglobin 9 and platelets 73. TSH normal at 1.195. He received also IV fluid. He already feels better He denies any prior history of dizziness or syncope or near syncope. He has been very busy over the last 3 to 4 months going with his from 1 place to another because she was very sick and he was physically very active. He denies any chest pain or shortness of breath at rest or with exertion. He denies orthopnea or paroxysmal nocturnal dyspnea. He has legs edema due to cirrhosis. He denies that he had ascites or paracentesis in the past. He denies any palpitation or prior history of arrhythmia. He denies smoking, alcohol or illicit drugs. Of note his blood pressure has been on the low side and he was started on midodrine as needed. Plan Continue aspirin, Plavix, atorvastatin, and Synthroid As mentioned above the patient never been in atrial fibrillation, at this point no need to consider anticoagulation He has frequent PACs but I did not start him on any beta-yadira due to occasions of short pauses up to 1.4 seconds followed by junctional beats which has been asymptomatic and not persistent He should be discharged home with 30-day event monitor to evaluate his arrhythmia further and decide if he needs any further cardiac workup or management The patient did have low-grade fevers. He has been spending time with his grandchildren who had been passing around and uncertain febrile illness to each other. While he was here in the hospital he did have low-grade temperatures of 100.7, 100.9, but then his fevers went away. He had no active symptoms of infection: No dysuria. No urinary tract infection symptoms. No diarrhea. No cough. No expectoration of any sputum. No rhinorrhea. Blood cultures were sent. The patient was monitored on telemetry overnight and still had no evidence of atrial fibrillation. On the next hospital morning his energy felt much better. He was able to walk in the hallways. He was hungry and feeding himself food. He was accompanied by his daughter who will go home and spend time with him. I did tell the patient that if he has returned of low-grade fevers I want him to take a course of azithromycin for possible pertussis. Given that he has had exposure to children with viral syndromes I suspect that if he continued to have low-grade fevers or low-grade infectious symptoms treatment with Z-Bryant would be adequate to cover for the possibility of pertussis which is family members may have been passing around. Additionally the patient is anemic. But he is in the middle of an IV iron infusion on outpatient basis so over time his hemoglobin counts and should improve. Cardiology did recommend a 30-day event monitor. The patient is being discharged on a Saturday so hopefully 30-day event monitor can be arranged for him when the rest of the hospital departments come back to work after the weekend. Status at Discharge Overall status at discharge: patient is progressing back to baseline Time Spent with Patient Time attestation: Total time spent providing and/or coordinating discharge services: 39 minutes. Exam Narrative Exam Narrative: General: Awake. Alert. Oriented x 3. Pulmonary: Clear to auscultation throughout. No wheezing. No rhonchi. No crackles Cardiac: Normal sinus rhythm on the monitor. Occasional PACs. No evidence of atrial fibrillation on my monitor review. Cardiac: To auscultation I hear no murmurs or rubs or gallops. GI: Abdomen soft, normal bowel sounds are heard throughout. Lower extremities: No edema in the ankles bilaterally. Constitutional Vital Signs, click to edit/add: Last Vital Signs Temp 98.6 F 12/26/24 07:37 Pulse 67 12/26/24 12:00 Resp 18 12/26/24 11:08 BP 106/65 12/26/24 11:08 Pulse Ox 94 L 12/26/24 11:08 O2 Del Method Room Air 12/26/24 11:08 DS: Data Data Completed and Pending Labs on day of discharge: Labs from last 24 hours 12/26/24 06:32 WBC 2.6 L RBC 2.89 L Hgb 8.5 L Hct 27.2 L MCV 94.1 H MCH 29.4 MCHC 31.3 RDW 15.0 Plt Count 58 L MPV 11.5 Sodium 142 Potassium 3.5 Chloride 111 H Carbon Dioxide 25.1 Anion Gap 9.4 BUN 15.0 Creatinine 0.70 Est GFR ( Amer) >60 Est GFR (Non-Af Amer) >60 BUN/Creatinine Ratio 21.4 Glucose 123 H Calcium 7.5 L Total Bilirubin 0.8 AST 41 H ALT 35 Alkaline Phosphatase 107 Total Protein 5.2 L Albumin 2.1 L Globulin 3.1 Albumin/Globulin Ratio 0.7 Preliminary micro results at discharge 12/25/24 02:15 Urine Culture - Preliminary Urine,Clean Catch Pending - Specimen sent to [facility] Discharge Plan Discharge Condition: Fair Discharge Medications: New azithromycin 250 mg tablet 250 mg PO DAILY 6 Days Qty: 6 0RF Rx Instructions: start on day 2 of therapy Continued atorvastatin 20 mg tablet 20 mg PO DAILY clopidogrel 75 mg tablet 75 mg PO DAILY levothyroxine 100 mcg tablet 100 mcg PO DAILY omeprazole 40 mg capsule,delayed release(DR/EC) 40 mg PO BID tizanidine 4 mg tablet 4 mg PO BEDTIME aspirin [Adult Low Dose Aspirin] 81 mg tablet,delayed release (DR/EC) 81 mg PO DAILY omega 9-dyo-xmn-fish oil [Fish Oil] 1,000 mg (120 mg-180 mg) capsule 1 cap PO TID multivitamin [Daily Multi-Vitamin] Tablet 1 tab PO DAILY Print Language: German
--- NOTE | 2024-12-26 15:28 | PC.NURSE ---
dc instructions given to pt and daughter in law. both verbalize understanding. pt understands that the hospital will be calling to assist with making appts and scheduling appt for event monitor to be applied.
--- NOTE | 2024-12-26 15:33 | PC.NURSE ---
[facility] [place] habilitation supervisor called and spoke to josefina negrete pharmacist, said he would transfer rx. pt taken to exit via wheelchair, belongings packed and taken per maddieer in law.
--- NOTE | 2024-12-28 08:12 | PC.NURSE ---
follow up Dr Conley's office with Rosanna Dec @11:[address] Barry Marin [address] [place] [address] needs holter monitor order faxed to the office fax#[phone] he called them and wants them to put the monitor on.
--- NOTE | 2024-12-28 13:27 | CM.DCFOLLOWU ---
Person spoke with: Pankaj How are you feeling? Good How is your pain? Better Did you understand your discharge instructions? Yes Do you have any questions about your discharge instructions? No Were you given any prescriptions at discharge? Yes Were you able to get your prescriptions filled? Yes Do you understand how to take your medications as ordered? Yes Do you have any questions about your follow up appointment and do you plan to keep your follow up appointment? The patient was notified that Cardiology would reach out to the patient for an appt and that he has an appt with Rosanna Bautista at 11 am on 12/31 Is there anything else that you would like to discuss? No Questions/Comments/Concerns/Other:
--- OUTSIDE RECORDS SUMMARY | 2024-12-29 14:00 | XMS_ITS | Encounter Summary ---
Author Organization [facility] Address [address] [place] [address] Care Team Providers Care Roll On Man Name Role Phone Frantz Conley MD Primary Care Provider [phone] Frantz Conley MD Unavailable [phone] Jazmin Toribio BIRTHING NURSE Unavailable [phone] Dang Bosch LPN Unavailable Encounter Details Date Type Department Care Team (Late st Contact Info) Description 05/25/2024 Abstract [facility] [place] [facility] 112 [facility] 110 [place] [id number] Frantz Conley MD 112 [facility] 110 [place], [place] [address] Social History Tobacco Use Types Packs/Day Years [...] often do you attend chur ch or lutheran services? More than 4 times per year 04/15/2023 Do you belong to any clubs o r organizations such as shinto groups, unions, fraternal or athletic groups, or [...] Recorded Patient Health Questionnaire-2 Score 0 10/21/2023 [facility] of Occupat ional Health - Occupational Stress [...] money to buy more. Never true 04/15/19 Within the past 12 months, t he [...] place to sleep or slept in a fdc (including now)? No 04/15/2023 Sex and Gender Information Value Date Recorded Sex Assigned at Not on file Legal Sex Male 6:37 PM EDT Gender Identity Not on file Sexual Orientation Not on file documented as of this encounter Plan of Treatment Upcoming Encounters Date Type Department Care Team (Late st Contact Info) Description 01/07/2025 11:30 AM EDT Office Visit [facility] [place] [facility] [address] [facility] 110 [place] [address] Frantz Conley MD [address] [facility] [address] [place] [address] documented as of this encounter Visit Diagnoses Not on filedocumented in this encounter Additional Health Concerns Assessment Noted Time PHQ-9 Depression Total Score: 0 10/21/19 24 11:00 AM EDT documented as of this encounter Care Teams Roll On Man Relationship Specialty Start Date End Date Frantz Conley MD [address] [facility] 110 [place] [address] PCP - General Internal Medicine 08/08/22 Frantz Conley MD [address] [facility] [address] [place] [address] PCP - ACO Reach 08/16/22 Jazmin Toribio, BIRTHING NURSE [address] [place] [address] Senior Marketing Analyst Family Medicine 08/04/24 08/07/24 Dang Bosch LPN [address] [facility] 110 [place] [address] 08/07/24 08/07/24 documented as of this encounter
--- OUTSIDE RECORDS SUMMARY | 2024-12-29 14:00 | XMS_ITS | Encounter Summary ---
Author Organization [facility] Address [address] [place] [address] Care Team Providers Care Hat Copyist Name Role Phone Frantz Conley MD Primary Care Provider [phone] Frantz Conley MD Unavailable [phone] Jazmin Toribio SALES ORDER ADMINISTRATOR Unavailable [phone] Dang Bosch LPN Unavailable Encounter Details Date Type Department Care Team (Late st Contact Info) Description 04/30/2024 Abstract [facility] [place] [facility] 112 [facility] 110 [place] [phone] Frantz Conley MD 112 [facility] 110 [place], [place] [id number] Social History Tobacco Use Types Packs/Day Years [...] often do you attend chur ch or synagogue services? More than 4 times per year [...] Recorded Patient Health Questionnaire-2 Score 0 10/21/2023 [facility] of Occupat ional Health - Occupational Stress [...] Visit [facility] [place] [facility] [address] [facility] 110 [place] [address] Frantz Conley MD [address] [facility] [address] [place] [address] documented as of this encounter Visit Diagnoses Not on filedocumented in this encounter Additional Health Concerns Assessment Noted Time PHQ-9 Depression Total Score: 0 10/21/19 24 11:00 AM EDT documented as of this encounter Care Teams Hat Copyist Relationship Specialty Start Date End Date Frantz Conley MD [address] [facility] 110 [place] [address] PCP - General Internal Medicine 08/08/22 Frantz Conley MD [address] [facility] [address] [place] [address] PCP - ACO Reach 08/16/22 Jazmin Toribio, SALES ORDER ADMINISTRATOR [address] [place] [address] Quality System Manager Family Medicine 08/04/24 08/07/24 Dang Bosch LPN [address] [facility] 110 [place] [address] 08/07/24 08/07/24 documented as of this encounter
--- OUTSIDE RECORDS SUMMARY | 2024-12-29 14:00 | XMS_ITS | Encounter Summary ---
Author Organization [facility] Address [address] [place] [address] Care Team Providers Care Finishing Lab Technician Name Role Phone Frantz Conley MD Primary Care Provider [phone] Frantz Conley MD Unavailable [phone] Jazmin Toribio SOFTBALL PLAYER Unavailable [phone] Dang Bosch LPN Unavailable Encounter Details Date Type Department Care Team (Late st Contact Info) Description 05/07/2024 Abstract [facility] [place] [facility] 112 [facility] 110 [place] [phone] Frantz Conley MD 112 [facility] 110 [place], [place] [id number] Social History Tobacco Use Types Packs/Day Years [...] often do you attend chur ch or christianity services? More than 4 times per year [...] Visit [facility] [place] [facility] [address] [facility] 110 [place] [address] Frantz Conley MD [address] [facility] [address] [place] [address] documented as of this encounter Visit Diagnoses Not on filedocumented in this encounter Additional Health Concerns Assessment Noted Time PHQ-9 Depression Total Score: 0 10/21/19 24 11:00 AM EDT documented as of this encounter Care Teams Finishing Lab Technician Relationship Specialty Start Date End Date Frantz Conley MD [address] [facility] [address] [place] [address] PCP - General Internal Medicine 08/08/22 Frantz Conley MD [address] [facility] [address] [place] [address] PCP - ACO Reach 08/16/22 Jazmin Toribio, SOFTBALL PLAYER [address] [place] [address] Mandarin Teacher Family Medicine 08/04/24 08/07/24 Dang Bosch LPN [address] [facility] 110 [place] [address] 08/07/24 08/07/24 documented as of this encounter
--- OUTSIDE RECORDS SUMMARY | 2024-12-29 14:01 | XMS_ITS | Encounter Summary ---
Author Organization [facility] Address [address] [place] [address] Phone Care Team Providers Care Audio Production Manager Name Role Phone Frantz Conley MD Primary Care Provider [phone] Encounter Details Date Type Department Care Team (Late st Contact Info) Description 04/30/2024 Scanned Document [facility] [address] [place] [place] [phone] Scanning, Generic Provider Social History Tobacco Use [...] Description 09/14/2025 2:00 PM EDT Office Visit [place] [address] [facility] [address] [place] [address] Crescencio Marin DO 703 [facility] 2, [address] [place], [place] [address] documented as of this encounter Visit Diagnoses Not on filedocumented in this encounter Additional Health Concerns Assessment Noted Time A fall risk assessment has been complete d for the patient 06/20/2023 10:03 AM EDT documented as of this encounter Care Teams Audio Production Manager Relationship Specialty Start Date End Date Frantz Conley MD [address] [address] PCP - General Internal Medicine 06/20/23 documented as of this encounter
--- OUTSIDE RECORDS SUMMARY | 2024-12-29 14:01 | XMS_ITS | Encounter Summary ---
Author Organization [facility] Address [address] [place] [address] Care Team Providers Care Substation Operator Apprentice Name Role Phone Frantz Conley MD Primary Care Provider [phone] Frantz Conley MD Unavailable [phone] Encounter Details Date Type Department Care Team (Latest Contact Info) Description 12/21/2024 Travel Social History Tobacco Use Types Packs/Day Years [...] often do you attend chur ch or nondenominational services? More than 4 times per year 04/15/2023 Do you belong to any clubs o r organizations such as yazdanism groups, unions, fraternal or athletic groups, or [...] Date Recorded Patient Health Questionnaire-2 Score 0 10/20/2024 [facility] of Occupat ional Health - Occupational [...] [address] [facility] 110 [place] [address] Frantz Conley MD [address] [facility] 110 [place] [address] documented as of this encounter Visit Diagnoses Not on filedocumented in this encounter Additional Health Concerns Assessment Noted Time PHQ-9 Depression Total Score: 0 10/21/19 25 2:00 PM EDT documented as of this encounter Care Teams Substation Operator Apprentice Relationship Specialty Start Date End Date Frantz Conley MD [address] [facility] [address] [place] [address] PCP - General Internal Medicine 08/08/22 Frantz Conley MD [address] [facility] [address] [place] [address] PCP - ACO Reach 08/16/22 documented as of this encounter
--- OUTSIDE RECORDS SUMMARY | 2024-12-29 14:01 | XMS_ITS | Encounter Summary ---
Author Organization [facility] Address [address] [place] [address] Care Team Providers Care Insurance Sales Associate Name Role Phone Frantz Conley MD Primary Care Provider [phone] Frantz Conley MD Unavailable [phone] Jazmin Toribio [place]AND [place] Unavailable [phone] Dang Bosch EDUCATION PROGRAM COORDINATOR Unavailable Encounter Details Date Type Department Care Team (Late st Contact Info) Description 08/31/2022 Abstract [facility] [place] [facility] 112 [facility] 110 [place] [address] Frantz Conley MD 112 [facility] 110 [place], [place] [id number] Social History Tobacco Use Types Packs/Day Years [...] Visit [facility] [place] [facility] [address] [facility] 110 [place] [address] Frantz Conley MD [address] [facility] 110 [place] [address] documented as of this encounter Visit Diagnoses Not on filedocumented in this encounter Care Teams Insurance Sales Associate Relationship Specialty Start Date End Date Frantz Conley MD [address] [facility] 110 [place] [address] PCP - General Internal Medicine 08/08/22 Frantz Conley MD [address] [facility] 110 [place] [address] PCP - ACO Reach 08/16/22 Jazmin Toribio, STAND [place] [address] [place] [address] Childcare Teacher Family Medicine 08/04/24 08/07/24 Dang Bosch LPN [address] [facility] 110 [place] [address] 08/07/24 08/07/24 documented as of this encounter
--- OUTSIDE RECORDS SUMMARY | 2024-12-29 14:01 | XMS_ITS | Encounter Summary ---
Author Organization [facility] Address [address] [place] [address] Phone Care Team Providers Care Syrup Mixer Name Role Phone Frantz Conley MD Primary Care Provider [phone] Encounter Details Date Type Department Care Team (Late Contact Info) Description 12/28/[address] [address] Kina Mcduffie RN Social History Tobacco Use Types Packs/Day Years [...] AM EDT documented as of this encounter Miscellaneous Notes * Telephone Encounter - Kina Mcduffie RN - 12/28/2024 4:07 PM EDT Order received from Dr Matthews for 30 DAY EVENT MONITOR. Diagnosis does not meet criteria. Scheduling to follow up with Dr Matthews. documented in this encounter Plan of Treatment Upcoming Encounters Date Type Department Care Team (Late Contact Info) Description 09/14/2025 2:00 PM EDT Office Visit [address] [phone] Crescencio Marin S, DO 703 [facility] [address], [address] [place] [address] documented as of this encounter Visit Diagnoses Diagnosis ASHD (arteriosclerotic heart disease)- Primary Coronary atherosclerosis of unspecified type of vessel, [place] or graft documented in this encounter Additional Health Concerns Assessment Noted Time A fall risk assessment has been complete d for the patient 09/08/2024 2:55 PM EDT documented as of this encounter Care Teams Syrup Mixer Relationship Specialty Start Date End Date Frantz Conley MD 112 [facility] 110 [place] [address] PCP - General Internal Medicine 06/20/23 documented as of this encounter
--- OUTSIDE RECORDS SUMMARY | 2024-12-29 14:01 | XMS_ITS | Encounter Summary ---
Author Organization [facility] Address [address] [place] [address] Care Team Providers Care Hydraulic Riveter Name Role Phone Frantz Conley MD Primary Care Provider [phone] Frantz Conley MD Unavailable [phone] Jazmin Toribio DESK CLERK Unavailable [phone] Dang Bosch LPN Unavailable Encounter Details Date Type Department Care Team (Late st Contact Info) Description 04/22/2024 Abstract [facility] [place] [facility] 112 [facility] 110 [place] [address] Frantz Conley MD 112 [facility] 110 [place], [place] [phone] Social History Tobacco Use Types Packs/Day Years [...] often do you attend chur ch or buddhism services? More than 4 times per year 04/15/2023 Do you belong to any clubs o r organizations such as jehovah's witness groups, unions, fraternal or athletic groups, or [...] Recorded Patient Health Questionnaire-2 Score 0 10/21/2023 [facility] of Occupat ional Health - Occupational Stress [...] [facility] [place] [facility] [address] [facility] [address] [place] [address] Frantz Conley MD [address] [facility] [address] [place] [address] documented as of this encounter Visit Diagnoses Not on filedocumented in this encounter Additional Health Concerns Assessment Noted Time PHQ-9 Depression Total Score: 0 10/21/19 24 11:00 AM EDT documented as of this encounter Care Teams Hydraulic Riveter Relationship Specialty Start Date End Date Frantz Conley MD [address] [facility] [address] [place] [address] PCP - General Internal Medicine 08/08/22 Frantz Conley MD [address] [facility] [address] [place] [address] PCP - ACO Reach 08/16/22 Jazmin Toribio, DESK CLERK [address] [place] [address] Electrical Power Station Technician Family Medicine 08/04/24 08/07/24 Dang Bosch LPN [address] [facility] 110 [place] [address] 08/07/24 08/07/24 documented as of this encounter"
--- OUTSIDE RECORDS SUMMARY | 2024-12-29 14:01 | XMS_ITS | Encounter Summary ---
Author Organization [facility] Address [address] [place] [address] Phone Care Team Providers Care Gl Accountant Name Role Phone Frantz Conley MD Primary Care Provider [phone] Encounter Details Date Type Department Care Team (Late st Contact Info) Description 06/10/2023 Scanned Document [facility] [address] [place] [id number] Scanning, Generic Provider Social History Tobacco Use [...] Description 09/14/2025 2:00 PM EDT Office Visit [facility] [address] [place] [address] Crescencio Marin DO [address] [place] [address] documented as of this encounter Visit Diagnoses Not on filedocumented in this encounter Care Teams Gl Accountant Relationship Specialty Start Date End Date Frantz Conley MD [address] [facility] 110 [place] [address] PCP - General Internal Medicine 06/20/23 documented as of this encounter
--- OUTSIDE RECORDS SUMMARY | 2024-12-29 14:01 | XMS_ITS | Encounter Summary ---
Author Organization [facility] Address [address] [place] [address] Care Team Providers Care Prosthetist Name Role Phone Frantz Conley MD Primary Care Provider [phone] Frantz Conley MD Unavailable [phone] Encounter Details Date Type Department Care Team (Late st Contact Info) Description 10/05/2024 [facility] [address] [facility] 110 [place] [address] Frantz Conley MD 112 [facility] 110 [place] [address] Social History [...] How often do you attend chur or pentecostal services? More than 4 times per year 04/15/2023 Do you belong to any clubs o r organizations such as pentecostalism groups, unions, fraternal or athletic groups, or [...] Date Recorded Patient Health Questionnaire-2 Score 0 10/05/2024 [facility] ionsc Health - Occupational Stress Questionnaire Answer Date [...] place to sleep or slept in a residential (including now)? No 04/15/2023 Sex and Gender Information Value Date Recorded Sex Assigned at Not on file Legal Sex Male 6:37 PM EDT Gender Identity Not on file Sexual Orientation Not on file documented as of this encounter Functional Status * Over the past 2 weeks, how often have you been bothered by any of the following problems? Question Answer Date of Assessment Author Little interest or pleasure in doing things Not at all 10/05/2024 11:00 AM EDT Franchesca Lewis L PN Feeling down, depressed, or hopeless Not at all 10/05/2024 11:00 AM EDT Franchesca Lewis L PN Patient Health Questionnaire -2 Score 0 10/05/2024 11:00 AM EDT Franchesca Lewis L PN documented as of this encounter Plan of Treatment Upcoming Encounters Date Type Department Care Team (Late st Contact Info) Description 01/07/2025 11:30 AM EDT Office Visit [facility] [place] [facility] [address] [facility] 110 [place] [address] Frantz Conley MD 112 [facility] 110 [place] [address] documented as of this encounter Visit Diagnoses Not on filedocumented in this encounter Additional Health Concerns Assessment Noted Time PHQ-9 Depression Total Score: 0 10/21/19 24 11:00 AM EDT documented as of this encounter Care Teams Prosthetist Relationship Specialty Start Date End Date Frantz Conley MD 112 [facility] 110 [place] [address] PCP - General Internal Medicine 08/08/22 Frantz Conley MD 112 [facility] 110 [place] [address] PCP - ACO Reach 08/16/22 documented as of this encounter
--- OUTSIDE RECORDS SUMMARY | 2024-12-29 14:01 | XMS_ITS | Encounter Summary ---
Author Organization [facility] Address [address] [place] [address] Care Team Providers Care Senior Commissions Analyst Name Role Phone Frantz Conley MD Primary Care Provider [phone] Frantz Conley MD Unavailable [phone] Jazmin Toribio HOUSE MOVER HELPER Unavailable [phone] Dang Bosch EXTERN Unavailable Encounter Details Date Type Department Care [...] Department Care Team (Late Contact Info) Description 01/07/2025 11:30 AM EDT Office Visit [facility] [place] [facility] [address] [facility] 110 [place] [address] Frantz Conley MD 112 [facility] 110 [place] [address] [phone] (work) documented as of this encounter Procedures Procedure Name Priority Date/Time Associated Diagnosis Comments CA ECHO DOPPLER COMPLETE 12/07/2022 6:29 PM EDT documented in this encounter Results * CA ECHO DOPPLER COMPLETE (12/07/2022 6:29 PM EDT) Anatomical Region Laterality Modality Other 12/07/2022 6:29 PM EDT Narrative 12/07/2022 6:29 [place] [address] Cardiology Report Signed Patient: AJ PAYNE MR#: [id number] : 1945 Acct:[id number] Age/Sex: 77 / M ADM Date: 12/07/22 Loc: [facility] Attending Dr: HILLARY MURPHY Ordering Physician: HILLARY MURPHY Date of Service: 12/07/22 Procedure(s): CA echo doppler complete Accession Number(s): [id number] cc: Patient: AJ PAYNE. Exam Date: 12/07/2022 : 1945 Gender:M Ordering : HILLARY MURPHY Admission #: [id number] Family : Order #: [id number] CLICK HERE TO VIEW EXAM ECHOCARDIOGRAM REPORT [...] GRIFFITH Signed By: 12/07/221829 DD/ 28 TD/TT: Trimming Machine Set Up Operator: Procedure Note Radiology, Radiologist, MD - 12/13/2022 [place] [address] Cardiology Report Signed Patient: AJ PAYNE AMR#: [id number] : 1945cct:[id number] Age/Sex: 77 / MADM Date: 12/07/22 Loc: CARD Attending Dr: HILLARY MURPHY Ordering Physician: HILLARY MURPHY Date of Service: 12/07/22 Procedure(s): CA echo doppler complete Accession Number(s): [id number] cc: Patient: AJ PAYNE Exam Date: 12/07/2022 : 1945 Gender:M Ordering : HILLARY MURPHY Admission #: [id number] Family : Order #: [id number] CLICK HERE TO VIEW EXAM ECHOCARDIOGRAM REPORT [...] at 18:29 Dictated By: LUCIA GRIFFITH Signed By:12/07/221829 DD/ 28 TD/TT: Trimming Machine Set Up Operator: us Generic External Data Provider [facility] Final Result documented in this encounter Visit Diagnoses Not on filedocumented in this encounter Care Teams Senior Commissions Analyst Relationship Specialty Start Date End Date Frantz Conley MD [address] [facility] 110 [place] [address] PCP - General Internal Medicine 08/08/22 Frantz Conley MD [address] [facility] 110 [place] [address] PCP - ACO Reach 08/16/22 Jazmin Toribio, BLAYNE [address] [place] [id number] Medical Unit Secretary Family Medicine 08/04/24 08/07/24 Dang Bosch LPN [address] [facility] 110 [place] [address] 08/07/24 08/07/24 documented as of this encounter
--- OUTSIDE RECORDS SUMMARY | 2024-12-29 14:01 | XMS_ITS | Encounter Summary ---
Author Organization [facility] Address [address] [place] [address] Care Team Providers Care Flow Match Sofa Cutter Name Role Phone Frantz Conley MD Primary Care Provider Frantz Conley MD Unavailable [phone] Encounter Details Date Type Department Care Team (Late st Contact Info) Description 10/21/2024 Abstract [facility] [address] [facility] 110 [place] [address] Frantz Conley MD 112 [facility] 110 [place] [address] Social History Tobacco Use Types [...] How often do you attend chur or latter day services? More than 4 times per year [...] Recorded Patient Health Questionnaire-2 Score 0 10/20/2024 [facility] of Occupat ionsc Health - Occupational Stress [...] place to sleep or slept in a care home (including now)? No 04/15/2023 Sex and [...] Visit [facility] [place] [facility] [address] [facility] 110 [place] [address] Frantz Conley MD [address] [facility] [address] [place] [address] documented as of this encounter Visit Diagnoses Not on filedocumented in this encounter Additional Health Concerns Assessment Noted Time PHQ-9 Depression Total Score: 0 10/21/19 25 2:00 PM EDT documented as of this encounter Care Teams Flow Match Sofa Cutter Relationship Specialty Start Date End Date Frantz Conley MD [address] [facility] [address] [place] [address] PCP - General Internal Medicine 08/08/22 Frantz Conley MD [address] [place] [address] PCP - ACO Reach 08/16/22 documented as of this encounter
--- OUTSIDE RECORDS SUMMARY | 2024-12-29 14:01 | XMS_ITS | Encounter Summary ---
Author Organization [facility] Address [address] [place] [address] Care Team Providers Care Jail Guard Name Role Phone Frantz Conley MD Primary Care Provider [phone] Frantz Conley MD Unavailable [phone] Encounter Details Date Type Department Care Team (Late st Contact Info) Description 11/11/2024 Abstract [facility] [address] [facility] 110 [place] [address] Frantz Conley MD 112 [facility] 110 [place] [address] Social History Tobacco Use Types [...] How often do you attend chur or scientology services? More than 4 times per year 04/15/2023 Do you belong to any clubs o r organizations such as cheondoism groups, unions, fraternal or athletic groups, or [...] Recorded Patient Health Questionnaire-2 Score 0 10/20/2024 [facility] of Occupat ionmt Health - Occupational Stress Questionnaire Answer Date [...] Visit [facility] [place] [facility] [address] [facility] [address] [place] [address] Frantz Conley MD [address] [facility] [address] [place] [address] documented as of this encounter Visit Diagnoses Not on filedocumented in this encounter Additional Health Concerns Assessment Noted Time PHQ-9 Depression Total Score: 0 10/21/19 25 2:00 PM EDT documented as of this encounter Care Teams Jail Guard Relationship Specialty Start Date End Date Frantz Conley MD [address] [facility] [address] [place] [address] PCP - General Internal Medicine 08/08/22 Frantz Conley MD [address] [place] [address] PCP - ACO Reach 08/16/22 documented as of this encounter
--- OUTSIDE RECORDS SUMMARY | 2024-12-29 14:01 | XMS_ITS | Encounter Summary ---
Author Organization [facility] Address [address] [place] [address] Care Team Providers Care Cop Breaker Name Role Phone Frantz Conley MD Primary Care Provider [phone] Frantz Conley MD Unavailable [phone] Jazmin Toribio LINUX CONSULTANT Unavailable [phone] Dang Bosch LPN Unavailable Encounter Details Date Type Department Care Team (Late st Contact Info) Description 10/01/2022 Abstract [facility] [place] [facility] 112 [facility] 110 [place] [address] Frantz Conley MD 112 [facility] 110 [place] [address] Social History Tobacco Use Types Packs/Day Years [...] Visit [facility] [place] [facility] [address] [facility] 110 [place] [address] Frantz Conley MD [address] [facility] 110 [place] [address] documented as of this encounter Visit Diagnoses Not on filedocumented in this encounter Care Teams Cop Breaker Relationship Specialty Start Date End Date Frantz Conley MD [address] [facility] 110 [place] [address] PCP - General Internal Medicine 08/08/22 Frantz Conley MD [address] [facility] 110 [place] [address] PCP - ACO Reach 08/16/22 Jazmin Toribio, BLAYNE [address] [place] [address] Powder Worker Family Medicine 08/04/24 08/07/24 Dang Bosch LPN [address] [facility] 110 [place] [address] 08/07/24 08/07/24 documented as of this encounter
--- OUTSIDE RECORDS SUMMARY | 2024-12-29 14:01 | XMS_ITS | Clinical Summary ---
Author Organization [facility] Address [address] [place] [address] Phone Care Team Providers Care Security Installation Sales Technician Name Role Phone Frantz Conley MD Primary Care Provider [phone] Allergies No known active allergies Medications clopidogrel (Plavix) 75 mg tablet Take 1 tablet (75 mg) by mouth once daily. 04/05/2023 Active fish oil concentrate (Trinity-3) 120-180 mg capsule Take 1 capsule (1,000 [...] Encounters Date Type Department Care Team Description 12/28/2024 Telephone [place] [address] [place] [address] Kina Mcduffie RN from Last 3 Months Immunizations Immunization Administration [...] Date Smoking Tobacco: Former Cigarettes Q uit: 2004 Smokeless Tobacco: Never Alcohol Use Standard Drinks/Week [...] Description 09/14/2025 2:00 PM EDT Office Visit [facility] [address] [facility] [address] [place] [address] Crescencio Marin DO [address] [address] [place] [address] Health Maintenance Due Date Last Done Comments [...] 11/08/2022 11/08/2021 COVID-19 Vaccine ( - season) 2024 03/01/2021, 05/26/2020, 04/28/2020 Influenza Vaccine (#1) 2024 [...] topic Insurance MEDICARE PART A AND B FOR LIFE MEDICARE PART A AND B FOR LIFE Care Teams Security Installation Sales Technician Relationship Specialty Start Date End Date Frantz Conley MD 112 [place] [address] PCP - General Internal Medicine 06/20/23
--- OUTSIDE RECORDS SUMMARY | 2024-12-29 14:01 | XMS_ITS | Encounter Summary ---
Author Organization [facility] Address [address] [place] [address] Care Team Providers Care Manager Knowledge Name Role Phone Frantz Conley MD Primary Care Provider [phone] Frantz Conley MD Unavailable [phone] Encounter Details Date Type Department Care Team (Late st Contact Info) Description 12/28/2024 Abstract [facility] [address] [place] [id number] Dang Bosch LPN 112 [facility] 110 [place] [address] Social History Tobacco Use Types Packs/Day Years [...] often do you attend chur ch or mormonism services? More than 4 times [...] Recorded Patient Health Questionnaire-2 Score 0 10/20/2024 [facility] - Occupational Stress Questionnaire Answer [...] [facility] [address] [place] [address] Frantz Conley MD [address] [facility] [address] [place] [id number] documented as of this encounter Visit Diagnoses Not on filedocumented in this encounter Additional Health Concerns Assessment Noted Time PHQ-9 Depression Total Score: 0 10/21/19 25 2:00 PM EDT documented as of this encounter Care Teams Manager Knowledge Relationship Specialty Start Date End Date Frantz Conley MD [address] [facility] [address] [place] [id number] PCP - General Internal Medicine 08/08/22 Frantz Conley MD [address] [facility] 110 [place] [address] PCP - ACO Reach 08/16/22 documented as of this encounter
--- OUTSIDE RECORDS SUMMARY | 2024-12-29 14:01 | XMS_ITS | Clinical Summary ---
Author Organization [facility] Address [address] [place] [address] Care Team Providers Care Gettering Operator Name Role Phone Frantz Conley MD Primary Care Provider [phone] Medications aspirin 81 mg chewable tablet Chew 81 mg. Ac tive fish oil concentrate ([place]-3) 120-180 mg capsule Take 1,000 mg by [...] type, unspecified whether angina present, unspecified whether [place] or transplanted heart TAKE 1 TABLET DAILY 90 tablet 3 07/04/19 24 Active Active Problems Problem Noted Date Diagnosed Date Coronary artery disease invo lving [place] coronary artery of [place] heart without angina pectoris 09/17/2022 Overview (09/17/2022): [...] will repeat echo at 1 year- Oct-Nov Social History Tobacco Use Types Packs/Day Years [...] 2 - PCV) 09/30/2019 09/29/2018 COVID-19 Vaccine (4 - season) 2024 03/01/2021, 05/26/2020, 04/28/2020 Influenza [...] Payer (Ef fective 2011-Present) Name:Pankaj Matthews Member ID:[id number] Relation to Subscriber:Self Name:Pankaj Matthews Subscriber ID:[id number] Payer ID:[id number] Group ID:Not on file Type:Medicare Address: [facility] [address] Care Teams Gettering Operator Relationship Specialty Start Date End Date Frantz Conley MD PCP - General 09/17/22
--- OUTSIDE RECORDS SUMMARY | 2024-12-29 14:01 | XMS_ITS | Encounter Summary ---
Author Organization [facility] Address [address] [place] [address] Care Team Providers Care Golf Course Patroller Name Role Phone Frantz Conley MD Primary Care Provider [phone] Frantz Conley MD Unavailable [phone] Jazmin Toribio CODE ENFORCEMENT INSPECTOR Unavailable [phone] Dang Bosch LPN Unavailable Encounter Details Date Type Department Care Team (Late st Contact Info) Description 01/01/2024 Abstract [facility] [place] [facility] 112 [facility] 110 [place] [address] Frantz Conley MD 112 [facility] 110 [place], [place] [address] Social History Tobacco Use Types Packs/Day Years [...] often do you attend chur ch or mormon services? More than 4 times per year 04/15/2023 Do you belong to any clubs o r organizations such as episcopal groups, unions, fraternal or athletic groups, or [...] Recorded Patient Health Questionnaire-2 Score 0 10/21/2023 [facility] of Occupat ional Health - Occupational [...] place to sleep or slept in a group home (including now)? No 04/15/2023 Sex and [...] Visit [facility] [place] [facility] [address] [facility] 110 [place] [address] Frantz Conley MD [address] [facility] 110 [place] [address] documented as of this encounter Visit Diagnoses Not on filedocumented in this encounter Additional Health Concerns Assessment Noted Time PHQ-9 Depression Total Score: 0 10/21/19 24 11:00 AM EDT documented as of this encounter Care Teams Golf Course Patroller Relationship Specialty Start Date End Date Frantz Conley MD [address] [facility] [address] [place] [address] PCP - General Internal Medicine 08/08/22 Frantz Conley MD [address] [facility] [place] [address] PCP - ACO Reach 08/16/22 Jazmin Toribio, CODE ENFORCEMENT INSPECTOR [address] [place] [address] Ground Host/Hostess Family Medicine 08/04/24 08/07/24 Dang Bosch LPN [address] [facility] 110 [place] [address] 08/07/24 08/07/24 documented as of this encounter
--- OUTSIDE RECORDS SUMMARY | 2024-12-29 14:01 | XMS_ITS | Encounter Summary ---
Author Organization [facility] Address [address] [place] [address] Care Team Providers Care Loans Officer Name Role Phone Frantz Conley MD Primary Care Provider [phone] Reason for Visit * Reason Comments Med Refill Encounter Details Date Type Department Care Team (Late st Contact Info) Description 04/05/2023 Refill [facility]iology [address] [place] [address] Karl Menon MD [address] [facility] [place] [address] Coronary artery disease, unspecified vessel or lesion type, unspecified whether angina present, unspecified whether [place] or transplanted heart Social History Tobacco Use [...] type, unspecified whether angina present, unspecified whether [place] or transplanted heart documented in this encounter Care Teams Loans Officer Relationship Specialty Start Date End Date Frantz Conley MD PCP - General 09/17/22 documented as of this encounter
--- OUTSIDE RECORDS SUMMARY | 2024-12-29 14:01 | XMS_ITS | Clinical Summary ---
Author Organization [facility] Address [address] [place] [address] Care Team Providers Care Needle Valve Operator Name Role Phone Frantz Conley MD Primary Care Provider [phone] Frantz Conley MD Unavailable [phone] Allergies No known active allergies Medications Multiple Vitamins-Minerals (ONE DAILY ADULTS 50+ PO) Take 1 tablet by mouth 1 (one) time each day. Active Jansen-3 Fatty Acids (Fish Oil) 1000 MG capsule delayed-release Take 1 capsule by mouth 1 (one) time each day. 5 Active omeprazole (PriLOSEC) [address] capsuleIndications: Gastroesophageal reflux disease without esophagitis TAKE 1 CAPSULE IN THE MORNING AND 1 CAPSULE IN THE EVENING. TAKE BEFORE MEALS. 180 capsule 3 4 Active tiZANidine (Zanaflex) 4 MG tabletIndications:M uscle cramps TAKE 1 TABLET DAILY AT NIGHT TIME NEEDED 90 tablet 3 5 Active clopidogrel (Plavix) 75 MG tabletIndications:P VCs (premature ventricular contractions) Take 1 tablet (75 mg) by mouth Daily 90 tablet 3 5 Active levothyroxine (Synthroid) 88 MCG tabletIndications:A cquired hypothyroidism TAKE 1 TABLET DAILY (DECREASED) 100 tablet 3 5 Active Ferrous Gluconate (iron) 240 (27 Fe) MG tablet Take 1 tablet by mouth Daily Active atorvastatin (Lipitor) 20 MG tabletIndications:M ixed hyperlipidemia Take 1 tablet (20 mg) by mouth at bedtime 100 tablet 3 5 10/31/19 Active Active Problems Problem Noted Date Diagnosed Date Grade II diastolic dysfunction 10/20/2024 Esophageal varices without bleeding 10/20/2024 Other secondary pulmonary hypertension Sinus bradycardia 10/05/2024 BMI 29.0-29.9,adult 01/01/2024 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hepatitis (SCANLON) [...] insomnia 08/13/2022 Coronary artery disease invo lving sh[place]f ira coronary artery of [place] ira heart without angina pectoris 08/13/2022 Diverticulosis of colon 08/13/2022 Gastroesophageal reflux disease 08/13/2022 Muscle cramps 08/13/2022 Other chronic pain [...] obstruction 08/13/20222023 Cholelithiasis without obstruction 08/13/2022 10/21/2023 Dermatophytosis of nail 08/13/202209/23 Indigestion 08/13/2022 10/20/2024 Intracranial subarachnoid hemorrhage 08/13/2022 10/21/2023 Right upper quadrant pain 08/13/2022 Encounters Date Type Department Care Team Description 12/28/[address] [facility] [place] [place] [address] [facility] [address] [place] [address] Frantz Conley MD 12/28/2024 Patient Outreach [facility] [address] [place] [address] Dang Bosch LPN 12/28/2024 Abstract [facility] [address] [place] [address] Dang Bosch LPN 12/25/2024 Clinisync Result Encounter [facility]OM[facility] External Department Unsolicited Provider, Generic External Data 12/21/2024 Travel 12/07/2024 Clinisync Result Encounter NOMS External Department Unsolicited Provider, Generic External Data 11/11/[address] [facility] [place] [place] [address] [facility] [address] [place] [address] Frantz Conley MD 10/30/2024 Refill [facility] 112 [facility] 110 [place] [address] Frantz Conley MD Mixed hyperlipidemia 10/30/2024 Telephone [facility] [place] [address] [place] [address] [address] [facility] [address] [place] [address] Frantz Conley MD 10/21/2024 Abstract [facility] [place] [facility] [address] [facility] [address] [place] [address] Frantz Conley MD 10/20/2024 2:30 PM EDT Office Visit [facility] [place] [facility] [address] [facility] [address] [place] [address] Rosanna Bautista PA Medicare annual wellness visit, subsequent (Primary Dx); ACP (advance care planning); Chronic insomnia; Other chronic pain; Benign essential HTN ; Benign hypertensive heart and CKD, 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), w CHF (HCC); Coronary artery disease involving shishmaref ira coronary artery of sh[place] ira heart without angina pectoris ; Dilatation of aorta; History of coronary artery stent placement; PVCs (premature ventricular contractions); Sinus arrhythmia; Sinus bradycardia; Abnormal LFTs; Diverticulosis of colon; Gastroesophageal reflux disease without esophagitis; 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hepatitis (SCANLON) (HCC); Cervical spondylolysis; Muscle cramps; Acquired hypothyroidism ; BMI 29.0-29.9,adult; Vitamin D deficiency; Iron deficiency anemia, unspecified iron deficiency anemia type; Pancytopenia, acquired (CMS-HCC); Former cigarette smoker; Mixed hyperlipidemia ; Situational anxiety; Unsteadiness on feet; Esophageal varices without bleeding (HCC); Other secondary pulmonary hypertension (HCC); Grade II diastolic dysfunction 10/20/2024 Bamboo flowsheet [facility] [place] [facility] [address] [facility] [address] [place] [address] Rosanna Bautista PA 10/20/2024 Travel 10/16/2024 Refill [facility] [place] [facility] [address] [facility] [address] [place] [address] Frantz Conley MD Acquired hypothyroidism 10/07/2024 Abstract [facility] [place] [facility] [address] [facility] [address] [place] [address] Frantz Conley MD 10/05/2024 11:00 AM EDT Office Visit [facility] [place] [place] [address] Frantz Conley MD Sinus bradycardia (Primary Dx); PVCs (premature ventricular contractions); Coronary artery disease involving shishmaref ira coronary artery of shishmaref ira heart without angina pectoris ; 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hepatitis (SCANLON) (HCC) 10/05/2024 Abstract [facility] [address] [place] [address] Frantz Conley MD 10/05/2024 Travel 10/05/2024 Abstract [facility] [place] [place] [address] Frantz Conley MD 10/01/2024 Clinisync Result Encounter NOMS External Department Unsolicited Provider, Generic External Data 09/29/2024 Telephone [facility] [address] [place] [address] Frantz Conley MD from Last 3 Months Immunizations Immunization Administration [...] any clubs o r organizations such as tenriism groups, unions, fraternal or athletic groups, or [...] Recorded Patient Health Questionnaire-2 Score 0 10/20/2024 [facility] of Occupat ional Health - Occupational Stress [...] Sign Reading Time Taken Comments Blood Pressure 132/84 10/20/2024 2:31 PM EDT Pulse 69 10/20/2024 2:31 PM EDT Temperature - - Respiratory Rate 16 10/20/2024 2:31 PM EDT Oxygen Saturation 96% 10/20/2024 2:31 PM EDT Inhaled Oxygen Concentration - - Weight 80.9 kg (178 lb 6.4 oz) 10/20/2024 2:31 P M EDT Height 166.4 cm (5' 5.5 ) 10/20/2024 2:31 PM EDT Body Mass Index 29.24 10/20/2024 2:31 PM EDT Plan of Treatment Upcoming Encounters Date Type Department Care Team (Late st Contact Info) Description 01/07/2025 11:30 AM EDT Office Visit [facility] [place] [facility] [address] [facility] 110 [place] [address] Frantz Conley MD [address] [facility] 110 [place] [address] Health Maintenance Due Date Last Done Comments Pneumococcal Vaccine: 65+ Ye ars (2 of 2 - PCV) 09/30/2019 09/29/2018 Influenza Vaccine (#1) 2024 , 12/15/2023, 01/04/2023, Additional history exists Medicare Annual Wellness (AWV) 10/20/2025 0 10/20/2024, 10/21/2023, 08/22/2022, Additional history exists Colonoscopy Discontinued 10/23/2023, 09/22, 10/08/2014 Colorectal Cancer Screening Discontinued CT Colonography Discontinued FIT-DNA Discontinued FIT Discontinued FOBT Discontinued Sigmoidoscopy Discontinued Procedures Procedure Name Priority Date/Time Associated Diagnosis Comments BLOOD CULTURE 2 Routine 12/25/2024 3:12 AM EDT URINE CULTURE - [facility] Routine 12/25/2024 2:15 AM EDT BLOOD CULTURE 1 Routine 12/25/2024 12:40 AM EDT [facility] FERRITIN Routine 12/07/2024 10:00 AM EDT [facility] IRON AND TIBC Routine 12/07/2024 1 0:00 AM EDT [facility] CMP (CMP) (FOR REMOTE [facility] USE) Routine 12/07/2024 10:00 AM EDT ALL CBC WITH AUTO DIFF Routine 12/07/2024 10:00 AM EDT ALL LIPID PROFILE (FASTING) Routine 10/01/2024 8:26 AM EDT [facility] ALT Routine 10/01/2024 8:26 AM EDT [facility] AST Routine 10/01/2024 8:26 AM EDT ALL BASIC METABOLIC PANEL Routine 10/01/2024 8:26 AM EDT HM COLONOSCOPY Routine 10/23/2023 from Last 3 Months or Most Recently Relevant to Health Maintenance Results * URINE CULTURE - [facility] (12/25/2024 2:15 AM EDT) Pathologist [facility] URINE CULTURE - [facility] Urine Culture - [facility] No Growth 2 Days [facility] - [facility]INE C[facility]URE - [facility] Testing performed at [facility] URINE CULTURE - [facility] [address] [place] [address] [facility] 12/25/2024 2:15 AM EDT 12/25/2024 1:40 PM EDT Narrative CLINISYNC - 12/28/2024 11:19 AM EDT us Generic External Data Provider LAB BLOOD ORDERAB LES Final Result [facility] * (ABNORMAL) [facility] IRON [facility] TIBC (12/07/2024 10:00 AM EDT) [facility] IRON 41.0(L) 65.0 - 175.0 ug/dL TB TB TOTAL IRON BINDING CAPACITY 360.0 250.0 - 450.0 ug/dL TB TB PERCENT IRON SATURATION 11.4 % TB 12/07/2024 10:0 0 AM EDT 12/07/2024 10:13 AM EDT Narrative CLINISYNC - 12/07/2024 11:21 AM EDT us Generic External Data Provider CLINISYNC F inal Result [facility]INISYNC [facility] * [facility] FERRITIN (12/07/2024 10:00 AM EDT) FERRITIN 29.0 26.0 - 388.0 ng/mL TBH 12/07/2024 10:0 0 AM EDT 12/07/2024 10:13 AM EDT Narrative CLINISYNC - 12/07/2024 1:10 PM EDT Generic External Data Provider CLINISYNC F inal Result [facility]INISYNC [facility] * (ABNORMAL) [facility] CMP (CMP) (FOR REMOTE [facility] USE) (12/07/2024 10:00 AM EDT) SODIUM 144 136 - 145 mmol/L TBH POTASSIUM 4.3 3.5 - 5.1 mmol/L TBH CHLORIDE 110(H) 98 - 107 mmol/L TBH CARBON DIOXIDE 27.9 21.0 - 32.0 mmol/L TBH ANION GAP 10.4 TBH GLUCOSE 144(H) 74 - 106 mg/dL TBH BLOOD UREA NITROGEN 21.0(H) 7.0 - 18.0 mg/dL TBH CREATININE 0.73 0.70 - 1.30 mg/dL TBH TBH EGFR-AF CROATIAN >60 >=60 mL/min/1. 73m 2 TBH TBH EGFR-NON AF CROATIAN >60 >=60 mL/min/1. 73m 2 TBH BUN CREATININE RATIO 28.8 TBH CALCIUM 8.6 8.5 - 10.1 mg/dL TBH BILIRUBIN TOTAL 0.6 0.2 - 1.0 mg/dL TBH ASPARTATE AMINO TRANSFERASE 56(H) 15 - 37 U/L TBH ALANINE AMINOTRANSFERASE 55 16 - 63 U/L TBH ALKALINE PHOSPHATASE 138(H) 46 - 116 U/L TBH TOTAL PROTEIN 6.6 6.4 - 8.2 g/dL TBH ALBUMIN LEVEL 2.8(L) 3.4 - 5.0 g/dL TBH GLOBULIN 3.8 g/dL TBH ALBUMIN GLOBULIN RATIO 0.7 TBH 12/07/2024 10:0 0 AM EDT 12/07/2024 10:13 AM EDT Narrative PRABHAKARISYNC - 12/07/2024 10:59 AM EDT us Generic External Data Provider CLINISYNC F inal Result [facility] * (ABNORMAL) ALL CBC WITH AUTO DIFF (12/07/2024 10:00 AM EDT) Pathologist [facility] TB WBC 3.1(L) 4.0 - 11.0 10 3/uL TBH TBH RBC 3.43(L) 4.70 - 6.10 10 6/uL TBH TBH HGB 10.8(L) 14.0 - 18.0 g/dL TBH TBH HCT 33.2(L) 42.0 - 54.0 % TBH TBH MCV 96.8(H) 80.0 - 94.0 fL TBH TBH MCH 31.5 25.9 - 34.0 pg TBH TBH MCHC 32.5 29.9 - 35.2 g/dL TBH TBH RDW 14.3 11.0 - 15.0 % TBH TBH PLT 83(L) 150 - 450 10 3/uL TBH TBH MPV 11.0 9.5 - 13.5 fL TBH NEUTROPHILS PERCENT AUTO 69.2 43.0 - 75.0 % TBH LYMPHOCYTES PERCENT AUTO 19.4(L) 20.5 - 60.0 % TBH MONOCYTES PERCENT AUTO 7.3 1.7 - 12.0 % TBH TBH EO % 3.2 0.9 - 7.0 % TBH BASOPHILS PERCENT AUTO 0.6 0.2 - 2.0 % TBH IMMATURE GRANULOCYTES PCT AUTO 0.3 0.0 - 0.5 % TBH NEUTROPHILS ABSOLUTE AUTO 2.2 1.4 - 6.5 10 3/uL TBH LYMPHOCYTES ABSOLUTE AUTO 0.6(L) 1.2 - 3.8 10 3/uL TBH MONOCYTES ABSOLUTE AUTO 0.2(L) 0.3 - 0.8 10 3/uL TBH TBH EO # 0.1 0.0 - 0.7 10 3/uL TBH BASOPHILS ABSOLUTE AUTO 0.0 0.0 - 0.1 10 3/uL TBH IMMATURE GRANULOCYTES ABS AUTO 0.01 0.00 - 0.03 10 3/uL TBH 12/07/2024 10:0 0 AM EDT 12/07/2024 10:13 AM EDT Narrative CLINISYNC - 12/07/2024 10:28 AM EDT Generic External Data Provider CLINISYNC F inal Result [facility]INISYNC [facility] * (ABNORMAL) [facility] AST (10/01/2024 8:26 AM EDT) ASPARTATE AMINO TRANSFERASE 46(H) 15 - 37 U/L TBH 10/01/2024 8:26 AM EDT 10/01/2024 8:29 AM EDT Narrative CLINISYNC - 10/01/2024 8:56 AM EDT Generic External Data Provider CLINISYNC F inal Result CLINISYNC TB * [facility] ALT (10/01/2024 8:26 AM EDT) ALANINE AMINOTRANSFERASE 51 16 - 63 U/L TBH 10/01/2024 8:26 AM EDT 10/01/2024 8:29 AM EDT Narrative CLINISYNC - 10/01/2024 8:56 AM EDT Generic External Data Provider CLINISYNC F inal Result CLINISYNC TB * ALL LIPID PROFILE (FASTING) (10/01/2024 8:26 AM EDT) TRIGLYCERIDES 58 <=150 mg/dL TBH CHOLESTEROL 113 <=200 mg/dL TBH HDL CHOLESTEROL 60 40 - 60 mg/dL TB Comment: > or =60 mg/dl - LOW CARDIOVASCULAR RISK <40 mg/dl - HIGH CARDIOVASCULAR RISK LDL CHOLESTEROL CALCULATED 41.4 mg/dL [facility] Comment: <100 mg/dl OPTIMAL 100-129 mg/dl NEAR OR ABOVE OPTIMAL 130-159 mg/dl BORDERLINE HIGH 160-189 mg/dl HIGH >190 mg/dl VERY HIGH VLDL CHOLESTEROL 11.6 mg/dL TB CHOL HDL RATIO 1.9 TB Comment: 3.3 - 4.4 LOW RISK 4.4 - 7.1 AVERAGE RISK 7.1 - 11.0 MODERATE RISK >11.0 HIGH RISK 10/01/2024 8:26 AM EDT 10/01/2024 8:29 AM EDT Narrative CLINISYNC - 10/01/2024 8:56 AM EDT Generic External Data Provider FRANCISCO JAVIER beckman Result Performing Organization Address [facility] de Phone Number CLINISYNC [facility] * (ABNORMAL) ALL BASIC METABOLIC PANEL (10/01/2024 8:26 AM EDT) SODIUM 146(H) 136 - 145 mmol/L TBH POTASSIUM 4.3 3.5 - 5.1 mmol/L TBH CHLORIDE 111(H) 98 - 107 mmol/L TBH CARBON DIOXIDE 26.2 21.0 - 32.0 mmol/L TBH ANION GAP 13.1 TBH GLUCOSE 106 74 - 106 mg/dL TBH BLOOD UREA NITROGEN 17.0 7.0 - 18.0 mg/dL TBH CREATININE 0.89 0.70 - 1.30 mg/dL TBH TBH EGFR-AF CROATIAN >60 >=60 mL/min/1.7 3m 2 TBH TBH EGFR-NON AF CROATIAN >60 >=60 mL/min/1.7 3m 2 TBH BUN CREATININE RATIO 19.1 TB CALCIUM 9.0 8.5 - 10.1 mg/dL TB 10/01/2024 8:26 AM EDT 10/01/2024 8:29 AM EDT Narrative CLINISYNC - 10/01/2024 8:56 AM EDT Generic External Data Provider FRANCISCO JAVIER F karuna Result Performing Organization Address City/State/[facility] Co de Phone Number PRABHAKARISYNC TB[facility] * (ABNORMAL) Colonoscopy (10/23/2023) Anatomical Region Laterality Modality Other 10/23/2023 Narrative 10/25/2023 9:28 AM EDT Polypectomy Rosanna [facility] MAINTENANCE Final Resul t from Last 3 Months or Most Recently Relevant to Health Maintenance Insurance MEDICARE [facility] Care Teams Needle Valve Operator Relationship Specialty Start Date End Date Frantz Conley MD [address] [email or web address] [address] [place] [address] PCP - General Internal Medicine 08/08/22 Frantz Conley MD [address] [place] [address] PCP - ACO Reach 08/16/22
--- OUTSIDE RECORDS SUMMARY | 2024-12-29 14:01 | XMS_ITS | Clinical Summary ---
Author Organization [facility] Address [address] [facility], [address] [place] [address] Care Team Providers Care Spring Coiling Machine Setter Name Role Phone Frantz Conley MD Primary Care Provider [phone] Allergies No known active allergies Medications tiZANidine [...] Take 1 tablet by mouth daily Active Pembroke-3 Fatty Acids (FISH OIL) 1000 MG CAPS [...] ID:Not on file Type:Not on file Address: [address] MEDICARE [facility] Advance Directives * Full Code (Latest Code Status on File) Date Activated Date Inactivated Comments 08/16/2021 8:15 PM 08/17/2021 4:39 PM Care Teams Spring Coiling Machine Setter Relationship Specialty Start Date End Date Frantz Conley MD [address] [place] [address] PCP - General Internal Medicine 08/16/21
--- OUTSIDE RECORDS SUMMARY | 2024-12-29 14:01 | XMS_ITS | Encounter Summary ---
Author Organization [facility] Address [address] [place] [address] Care Team Providers Care Delivery Table Feeder Name Role Phone Frantz Conley MD Primary Care Provider [phone] Reason for Visit * Reason Comments Med Refill Encounter Details Date Type Department Care Team (Late st Contact Info) Description 04/08/2022 Refill [facility] Cardiology [address] [place] [id number] Veronika Lanier CNP [address] [facility] [place] [address] Coronary artery disease, unspecified vessel or lesion type, unspecified whether angina present, unspecified whether [place] or transplanted heart Social History Tobacco Use [...] type, unspecified whether angina present, unspecified whether [place] or transplanted heart documented in this encounter Care Teams Delivery Table Feeder Relationship Specialty Start Date End Date Frantz Conley MD PCP - General 09/17/22 documented as of this encounter
--- OUTSIDE RECORDS SUMMARY | 2024-12-29 14:01 | XMS_ITS | Encounter Summary ---
Author Organization [facility] Address [address] [place] [address] Care Team Providers Care Jr. Systems Administrator Name Role Phone Frantz Conley MD Primary Care Provider [phone] Frantz Conley MD Unavailable [phone] Encounter Details Date Type Department Care Team (Late st Contact Info) Description 10/07/2024 [facility] [address] [facility] 110 [place] [address] Frantz Conley MD 112 [facility] 110 [place] [address] Social History Tobacco Use Types [...] How often do you attend chur or islam services? More than 4 times per year 04/15/2023 Do you belong to any clubs o r organizations such as zoroastrianism groups, unions, fraternal or athletic groups, or [...] Recorded Patient Health Questionnaire-2 Score 0 10/05/2024 [facility] of Occupat ionnm Health - Occupational Stress Questionnaire Answer Date [...] Visit [facility] [place] [address] [facility] [address] [place] [address] Frantz Conley MD [address] [facility] [address] [place] [address] documented as of this encounter Visit Diagnoses Not on filedocumented in this encounter Additional Health Concerns Assessment Noted Time PHQ-9 Depression Total Score: 0 10/21/19 11:00 AM EDT documented as of this encounter Care Teams Jr. Systems Administrator Relationship Specialty Start Date End Date Frantz Conley MD [address] [facility] [address] [place] [address] PCP - General Internal Medicine 08/08/22 Frantz Conley MD [address] [place] [address] PCP - ACO Reach 08/16/22 documented as of this encounter
--- OUTSIDE RECORDS SUMMARY | 2024-12-29 14:01 | XMS_ITS | Encounter Summary ---
Author Organization [facility] Address [address] [place] [address] Care Team Providers Care Flight Crew Time Clerk Name Role Phone Frantz Conley MD Primary Care Provider [phone] Frantz Conley MD Unavailable [phone] Jazmin Toribio RECORDS MANAGER Unavailable [phone] Dang Bosch LPN Unavailable Encounter Details Date Type Department Care Team (Late st Contact Info) Description 05/02/2023 Orders Only [facility] [address] [facility] [address] [place] [address] A, Unknown Practice [address] [place] [address] Social History Tobacco Use Types Packs/Day Years [...] How often do you attend chur or jain services? More than 4 times per year 04/15/2023 Do you belong to any clubs o r organizations such as confucianism groups, unions, fraternal or athletic groups, or [...] Recorded Patient Health Questionnaire-2 Score 0 08/22/2022 [facility] of Occupat ional Health - Occupational [...] 01/07/2025 11:30 AM EDT Office Visit [facility] [address] [facility] 110 [place] [address] Frantz Conley MD 112 [facility] 110 [place] [address] documented as of this encounter Procedures Procedure Name Priority Date/Time Associated Diagnosis Comments ELECTROCARDIOGRAM REPORT Routine 024 4:02 PM EST documented in this encounter Results * Electrocardiogram Report (04/30/2023 4:02 PM EST) us Unknown Practice A IN CLINIC/BEDSIDE ORDERABLES Final Result documented in this encounter Visit Diagnoses Not on filedocumented in this encounter Care Teams Flight Crew Time Clerk Relationship Specialty Start Date End Date Frantz Conley MD [address] [facility] [address] [place] [address] PCP - General Internal Medicine 08/08/22 Frantz Conley MD [address] [facility] [address] [place] [address] PCP - ACO Reach 08/16/22 Jazmin Toribio, RECORDS MANAGER [address] [facility] [place] [address] Line Crewman Family Medicine 08/04/24 08/07/24 Dang Bosch LPN [address] [address] 08/07/24 08/07/24 documented as of this encounter
--- OUTSIDE RECORDS SUMMARY | 2024-12-29 14:01 | XMS_ITS | Encounter Summary ---
Author Organization [facility] Address [address] [place] [address] Phone Care Team Providers Care Lab Support Service Tech Name Role Phone Frantz Conley MD Primary Care Provider [phone] Encounter Details Date Type Department Care Team (Late st Contact Info) Description 09/17/2023 Scanned Document [facility] [address] [place] [place] [id number] Scanning, Generic Provider Social History Tobacco Use [...] Description 09/14/2025 2:00 PM EDT Office Visit [place] [address] [facility] [address] [place] [address] Crescencio Marin DO [address] [facility] [address], [address] [place], [place] [id number] documented as of this encounter Visit Diagnoses Not on filedocumented in this encounter Additional Health Concerns Assessment Noted Time A fall risk assessment has been complete d for the patient 06/20/2023 10:03 AM EDT documented as of this encounter Care Teams Lab Support Service Tech Relationship Specialty Start Date End Date Frantz Conley MD [address] [address] PCP - General Internal Medicine 06/20/23 documented as of this encounter
--- OUTSIDE RECORDS SUMMARY | 2024-12-29 14:01 | XMS_ITS | Encounter Summary ---
Author Organization [facility] Address [address] [place] [address] Care Team Providers Care Belly Packer Name Role Phone Frantz Conley MD Primary Care Provider Frantz Conley MD Unavailable [phone] Encounter Details Date Type Department Care Team (Late st Contact Info) Description 09/09/2024 [facility] [address] [facility] 110 [place] [address] Frantz Conley MD 112 [facility] 110 [place] [address] Social History Tobacco Use Types [...] any clubs o r organizations such as latter day groups, unions, fraternal or athletic groups, or [...] Recorded Patient Health Questionnaire-2 Score 0 10/21/2023 [facility] of Occupat ionnm Health - Occupational Stress [...] place to sleep or slept in a detention (including now)? No 04/15/2023 Sex and Gender [...] Visit [facility] [place] [address] [facility] [address] [place] [address] Frantz Conley MD [address] [facility] [address] [place] [address] documented as of this encounter Visit Diagnoses Not on filedocumented in this encounter Additional Health Concerns Assessment Noted Time PHQ-9 Depression Total Score: 0 10/21/19 11:00 AM EDT documented as of this encounter Care Teams Belly Packer Relationship Specialty Start Date End Date Frantz Conley MD [address] [facility] [address] [place] [address] PCP - General Internal Medicine 08/08/22 Frantz Conley MD [address] [place] [address] PCP - ACO Reach 08/16/22 documented as of this encounter
--- OUTSIDE RECORDS SUMMARY | 2024-12-29 14:01 | XMS_ITS | Encounter Summary ---
Author Organization [facility] Address [address] [place] [address] Care Team Providers Care Enamel Finisher Name Role Phone Frantz Conley MD Primary Care Provider [phone] Frantz Conley MD Unavailable [phone] Encounter Details Date Type Department Care Team (Late st Contact Info) Description 12/28/2024 [facility] 110 [place] [address] Frantz Conley MD 112 [facility] 110 [place] [address] Social History Tobacco Use Types [...] How often do you attend chur or zoroastrianism services? More than 4 times per year [...] Recorded Patient Health Questionnaire-2 Score 0 10/20/2024 [facility] of Occupat ionwa Health - Occupational Stress Questionnaire Answer Date [...] Visit [facility] [place] [address] [facility] 110 [place] [address] Frantz Conley MD [address] [facility] 110 [place] [address] documented as of this encounter Visit Diagnoses Not on filedocumented in this encounter Additional Health Concerns Assessment Noted Time PHQ-9 Depression Total Score: 0 10/21/19 25 2:00 PM EDT documented as of this encounter Care Teams Enamel Finisher Relationship Specialty Start Date End Date Frantz Conley MD [address] [facility] 110 [place] [address] PCP - General Internal Medicine 08/08/22 Frantz Conley MD [address] [facility] 110 [place] [address] PCP - ACO Reach 08/16/22 documented as of this encounter
--- OUTSIDE RECORDS SUMMARY | 2024-12-29 14:01 | XMS_ITS | Encounter Summary ---
Author Organization [facility] Address [address] [place] [address] Care Team Providers Care Sponge Press Operator Name Role Phone Frantz Conley MD Primary Care Provider [phone] Frantz Conley MD Unavailable [phone] Jazmin Toribio TUBE SORTER Unavailable [phone] Dang Bosch DRY COLOR MIXER Unavailable Encounter Details Date Type Department Care Team (Late st Contact Info) Description 08/20/2022 Abstract [facility] [place] [facility] 112 [facility] 110 [place] [address] Frantz Conley MD 112 [facility] 110 [place], [place] [id number] Social History Tobacco Use Types Packs/Day Years [...] Description 01/07/2025 11:30 AM EDT Office Visit JESÚS Almaraz [address] [facility] 110 [place] [address] Frantz Conley MD [address] [facility] 110 [place] [address] documented as of this encounter Visit Diagnoses Not on filedocumented in this encounter Care Teams Sponge Press Operator Relationship Specialty Start Date End Date Frantz Conley MD [address] [facility] 110 [place] [address] PCP - General Internal Medicine 08/08/22 Frantz Conley MD [address] [facility] 110 [place] [address] PCP - ACO Reach 08/16/22 Jazmin Toribio, BLAYNE [address] [place] [address] Industrial Maintenance Tech Family Medicine 08/04/24 08/07/24 Dang Bosch LPN [address] [facility] 110 [place] [address] 08/07/24 08/07/24 documented as of this encounter
--- OUTSIDE RECORDS SUMMARY | 2024-12-29 14:01 | XMS_ITS | Encounter Summary ---
Author Organization [facility] Address [address] [place] [address] Care Team Providers Care Senior Data Warehouse Architect Name Role Phone Frantz Conley MD Primary Care Provider [phone] Frantz Conley MD Unavailable [phone] Encounter Details Date Type Department Care Team (Late st Contact Info) Description 12/25/2024 Clinisync Result Encounter [facility] External Department [...] any clubs o r organizations such as faith groups, unions, fraternal or athletic groups, or [...] Recorded Patient Health Questionnaire-2 Score 0 10/20/2024 [facility] of Occupat ional Health - Occupational [...] 11:30 AM EDT Office Visit [facility] [place] Almaraz [address] [facility] 110 [place] [address] Frantz Conley MD [address] [facility] 110 [place] [address] Pending Results Name Type Priority Associated Diagnoses Date /Time BLOOD CULTURE 1 Lab Routine 12:40 AM EDT BLOOD CULTURE 2 Lab Routine 3:12 AM EDT documented as of this encounter Procedures Procedure Name Priority Date/Time Associated Diagnosis Comments BLOOD CULTURE 2 Routine 12/25/2024 3:12 AM EDT URINE CULTURE - [facility] Routine 12/25/2024 2:15 AM EDT BLOOD CULTURE 1 Routine 12/25/2024 12:40 AM EDT documented in this encounter Results * URINE CULTURE - [facility] (12/25/2024 2:15 AM EDT) [facility] URINE CULTURE - [facility] Urine Culture - [facility] No Growth 2 Days [facility] - [facility]INE [facility]ULTURE - [facility] Testing performed at [facility] URINE CULTURE - [facility] [address] [place] [address] [facility] 12/25/2024 2:15 AM EDT 12/25/2024 1:40 PM EDT Narrative [facility] - 12/28/2024 11:19 AM EDT us Generic External Data Provider LAB BLOOD ORDERAB LES Final Result [facility] documented in this encounter Visit Diagnoses Not on filedocumented in this encounter Additional Health Concerns Assessment Noted Time PHQ-9 Depression Total Score: 0 10/21/19 2:00 PM EDT documented as of this encounter Care Teams Senior Data Warehouse Architect Relationship Specialty Start Date End Date Frantz Conley MD [address] [facility] [address] [place] [address] PCP - General Internal Medicine 08/08/22 Frantz Conley MD [address] [facility] [address] [place] [address] PCP - ACO Reach 08/16/22 documented as of this encounter
--- OUTSIDE RECORDS SUMMARY | 2024-12-29 14:01 | XMS_ITS | Encounter Summary ---
Author Organization [facility] Address [address] [place] [address] Care Team Providers Care Dairy Frozen Manager Name Role Phone Frantz Conley MD Primary Care Provider [phone] Frantz Conley MD Unavailable [phone] Encounter Details Date Type Department Care Team (Late st Contact Info) Description 12/28/2024 Patient Outreach [facility] [address] [place] [address] Dang Bosch LPN 112 [facility] 110 [place] [address] Social History Tobacco Use Types Packs/Day Years [...] How often do you attend chur or yazidi services? More than 4 times per year 04/15/2023 Do you belong to any clubs o r organizations such as mu-ism groups, unions, fraternal or athletic groups, or [...] Recorded Patient Health Questionnaire-2 Score 0 10/20/2024 [facility] of Occupat ional Health - Occupational [...] on file documented as of this encounter Progress Notes * Dang Bosch LPN - 12/28/2024 11:41 AM EDT Images from the original note were not included. Records in chart. KIRSTEN complete. Medications not reconciled with pt. Phone call ended. Pt states feeling a little better. He shares he is not sure he is to wear a 30 day heart monitor. He states they were not really direct in if he was going to or not. I tell him from what I have read in discharge Ibelieve pt is to wear 30 day monitor. Pt states he plans on calling his Senior Technical Business Analyst to see if thisis necessary or not. Pt declines 30 day monitoring. States he does not feel he needs this. Flowsheet Row Patient Outreach from 12/28/[address] [facility] with Dang Bosch LPN Hospital Information ED, Hospital or Correction Facility Discharge? Hospital Patient has been contacted within two business days of discharge Yes Diagnosis (1) Hypotension: (2) Coronary artery disease: (3) H/O heart artery stent: (4) Hyperlipidemia: (5) Steatohepatitis: (6) Portal hypertension: (7) Thrombocytopenia: (8) GAVE (gastric antral vascular ectasia): (9) Anemia: (10) Hypothyroid Discharge Date 12/26/24 Discharged To: Home Setting Discharge Hospital [facility] Engagement Call Start Time 1140 Admission Date 12/25/24 Medications Discharge medications reviewed and reconciled from hospital? No Is the patient having any side effects they believe may be caused by any medication additions or changes? No Does the patient have all medications ordered at discharge? Yes Prescription Comments azithromycin 250 mg tablet 250 mg PO DAILY 6 Days Is the patient taking all medications as directed (includes completed medication regime)? Yes Appointments Does the patient have a primary care provider? Yes [01/07] Does the patient have any upcoming specialty appointments? Yes Self Management Does patient have home health? no Patient Teaching Does the patient have access to their discharge instructions? Yes What is the patient's perception of their health status since discharge? Improving Is the patient/caregiver able to teach back the hierarchy of who to call/visit for symptoms/problems? PCP, Specialist, Home Health nurse, Urgent Care, ED, 911 Yes Wrap Up Wrap Up Additional Comments Presented to ER just a few hours after completing his 's , with complaints of fatigue and weakness and low-grade temperatures. Labs, CXR, UA, EKG. 30 day heart monitor recomended. Call End Time 1148 documented in this encounter Plan of Treatment Upcoming Encounters Date Type Department Care Team (Late st Contact Info) Description 01/07/2025 11:30 AM EDT Office Visit [facility] Johnathon Almaraz 112 [facility] 110 [place] [address] Frantz Conley MD 112 [facility] 110 [place] [address] documented as of this encounter Visit Diagnoses Diagnosis Hypotension, unspecified hypotension type Coronary artery disease involving upper mattaponi coronary artery of upper mattaponi heart without angina pectoris Hyperlipidemia, unspecified hyperlipidemia type Steatohepatitis Other chronic nonalcoholic liver disease Portal hypertension (HCC) Portal hypertension Thrombocytopenia Unspecified thrombocytopenia GAVE (gastric antral vascular ectasia) Anemia, unspecified type documented in this encounter Additional Health Concerns Assessment Noted Time PHQ-9 Depression Total Score: 0 10/21/19 25 2:00 PM EDT documented as of this encounter Care Teams Dairy Frozen Manager Relationship Specialty Start Date End Date Frantz Conley MD [address] [address] PCP - General Internal Medicine 08/08/22 Frantz Conley MD [address] [address] PCP - ACO Reach 08/16/22 documented as of this encounter
--- OUTSIDE RECORDS SUMMARY | 2024-12-29 14:01 | XMS_ITS | Encounter Summary ---
Author Organization [facility] Address [address] [place] [address] Care Team Providers Care Spanish Medical Interpreter Name Role Phone Frantz Conley MD Primary Care Provider [phone] Frantz Conley MD Unavailable Jazmin Toribio BAKER PIE Unavailable [phone] Dang Bosch LPN Unavailable Encounter Details Date Type Department Care Team (Late st Contact Info) Description 05/01/2023 Orders Only [facility] [place] [facility] [address] [facility] 110 [place] [address] Unallocated, Noms Provider, [address] [place] [address] Social History Tobacco Use Types Packs/Day Years [...] 04/15/2023 How often do you attend chur [employer] or mandaen services? More than 4 times per year 04/15/2023 Do you belong to any clubs o r organizations such as quaker groups, unions, fraternal or athletic groups, or [...] Patient Health Questionnaire-2 Score 0 08/22/2022 [facility] of Occupat ional Health [...] EDT Office Visit [facility] [place] Almaraz 112 [facility] 110 [place] [address] Frantz Conley MD 112 [facility] 110 [place] [address] documented as of this encounter Procedures Procedure Name Priority Date/Time Associated Diagnosis Comments SCANNED LABS Routine 04/30/2023 8:23 AM EST SCANNED LABS Routine 04/30/2023 8:12 AM EST documented in this encounter Results * SCANNED LABS (04/30/2023 8:23 AM EST) us Noms Provider Unallocated LAB CHG PERFORMABLE S Final Result * SCANNED LABS (04/30/2023 8:12 AM EST) us Noms Provider Unallocated LAB CHG PERFORMABLE S Final Result documented in this encounter Visit Diagnoses Not on filedocumented in this encounter Care Teams Spanish Medical Interpreter Relationship Specialty Start Date End Date Frantz Conley MD [address] [facility] 110 [place] [address] PCP - General Internal Medicine 08/08/22 Frantz Conley MD [address] [facility] 110 [place] [address] PCP - ACO Reach 08/16/22 Jazmin Toribio, BAKER PIE [address] [place] [address] Sales Representative Graphic Art Family Medicine 08/04/24 08/07/24 Dang Bosch LPN [address] [facility] 110 [place] [address] 08/07/24 08/07/24 documented as of this encounter
--- OUTSIDE RECORDS SUMMARY | 2024-12-29 14:02 | XMS_ITS | Encounter Summary ---
Author Organization [facility] Address [address] [place] [address] Care Team Providers Care Admin Prog Coord Name Role Phone Frantz Conley MD Primary Care Provider [phone] Frantz Conley MD Unavailable [phone] Jazmin Toribio APPLICATION SUPPORT Unavailable [phone] Dang Bosch LPN Unavailable Encounter Details Date Type Department Care Team (Late st Contact Info) Description 12/16/2023 Abstract [facility] [place] [facility] [address] [facility] 110 [place] [address] Frantz Conley MD 112 [facility] 110 [place], [place] [id number] Social History Tobacco Use Types Packs/Day Years [...] often do you attend chur ch or orthodox services? More than 4 times [...] Recorded Patient Health Questionnaire-2 Score 0 10/21/2023 [facility] of Occupat ional Health - Occupational [...] place to sleep or slept in a usp (including now)? No 04/15/2023 Sex and Gender [...] Visit [facility]S [place] Almaraz [address] [facility] 110 [place] [address] Frantz Conley MD [address] [facility] 110 [place] [address] documented as of this encounter Visit Diagnoses Not on filedocumented in this encounter Additional Health Concerns Assessment Noted Time PHQ-9 Depression Total Score: 0 10/21/19 24 11:00 AM EDT documented as of this encounter Care Teams Admin Prog Coord Relationship Specialty Start Date End Date Frantz Conley MD [address] [facility] 110 [place] [address] PCP - General Internal Medicine 08/08/22 Frantz Conley MD [address] [facility] 110 [place] [address] PCP - ACO Reach 08/16/22 Jazmin Toribio, APPLICATION SUPPORT [address] [place] [address] Racecourse Barrier Attendant Family Medicine 08/04/24 08/07/24 Dang Bosch LPN [address] [facility] 110 [place] [address] 08/07/24 08/07/24 documented as of this encounter
--- OUTSIDE RECORDS SUMMARY | 2024-12-29 14:02 | XMS_ITS | Encounter Summary ---
Author Organization [facility] Address [address] [place] [address] Care Team Providers Care Orchardist Name Role Phone Frantz Conley MD Primary Care Provider [phone] Frantz Conley MD Unavailable [phone] Jazmin Toribio CONCRETING SUPERVISOR Unavailable [phone] Dang Bosch LPN Unavailable Encounter Details Date Type Department Care Team (Late st Contact Info) Description 05/08/2023 Orders Only [facility] [place] [facility] [address] [facility] 110 [place] [address] A, Unknown Practice [address] [place] [address] Social History Tobacco Use Types [...] How often do you attend chur or roman catholic services? More than 4 times per year 04/15/2023 Do you belong to any clubs o r organizations such as sabianist groups, unions, fraternal or athletic groups, or [...] Questionnaire-2 Score 0 08/22/2022 [facility] of Occupat ional Health - Occupational [...] EDT Office Visit [facility] John[place] Almaraz 112 [facility] 110 [place] [address] Frantz Conely MD 112 [facility] 110 [place] [address] documented as of this encounter Procedures Procedure [...] on filedocumented in this encounter Care Teams Orchardist Relationship Specialty Start Date End Date Frantz Conley MD [address] [facility] 110 [place] [address] PCP - General Internal Medicine 08/08/22 Frantz Conley MD [address] [facility] 110 [place] [address] PCP - ACO Reach 08/16/22 Jazmin Toribio, BLAYNE [address] [place] [address] Operational Intelligence Analyst Family Medicine 08/04/24 08/07/24 Dang Bosch LPN [address] [facility] 110 [place] [address] 08/07/24 08/07/24 documented as of this encounter
--- OUTSIDE RECORDS SUMMARY | 2024-12-29 14:02 | XMS_ITS | Encounter Summary ---
Author Organization [facility] Address [address] [place] [address] Care Team Providers Care [facility] Office Supervisor Name Role Phone Frantz Conley MD Primary Care Provider [phone] Frantz Conley MD Unavailable [phone] Jazmin Toribio UNIT CONTROLLER Unavailable [phone] Dang Bosch LPN Unavailable Encounter Details Date Type Department Care Team (Late st Contact Info) Description 11/13/2023 Orders Only [facility] [place] [facility] [address] [facility] [address] [place] [address] Franchesca Lewis LPN [address] [place] [address] Pancytopenia, acquired ([facility]) Social History Tobacco Use Types Packs/Day Years [...] How often do you attend chur or jainism services? More than 4 times per year [...] Recorded Patient Health Questionnaire-2 Score 0 10/21/2023 [facility] of Occupat ional Health - [...] place to sleep or slept in a long term (including now)? No 04/15/2023 Sex and Gender Information Value Date Recorded Sex Assigned at Not on file Legal Sex Male 6:37 PM EDT Gender Identity Not on file Sexual Orientation Not on file documented as of this encounter Plan of Treatment Upcoming Encounters Date Type Department Care Team (Late st Contact Info) Description 01/07/2025 11:30 AM EDT Office Visit [facility] [place] Almaraz [address] [address] [place] [address] Frantz Conley MD 112 [facility] 110 [place] [address] documented as of this encounter Visit Diagnoses Diagnosis Pancytopenia, acquired ([facility]-HCC) Pancytopenia documented in this encounter Additional Health Concerns Assessment Noted Time PHQ-9 Depression Total Score: 0 10/21/19 24 11:00 AM EDT documented as of this encounter Care Teams [facility] Office Supervisor Relationship Specialty Start Date End Date Frantz Conley MD [address] [facility] 110 [place] [address] PCP - General Internal Medicine 08/08/22 Frantz Conley MD [address] [facility] 110 [place] [address] PCP - ACO Reach 08/16/22 Jazmin Toribio, UNIT CONTROLLER [address] [place] [address] Track Inspecting Supervisor Family Medicine 08/04/24 08/07/24 Dang Bosch LPN [address] [facility] 110 [place] [address] 08/07/24 08/07/24 documented as of this encounter
--- OUTSIDE RECORDS SUMMARY | 2024-12-29 14:02 | XMS_ITS | Encounter Summary ---
Author Organization [facility] Address [address] [place] [address] Care Team Providers Care Cardroom Drawing Runner Name Role Phone Frantz Conley MD Primary Care Provider [phone] Frantz Conley MD Unavailable [phone] Jazmin Toribio PRINTING ROLLER HANDLER Unavailable [phone] Dang Bosch LPN Unavailable Encounter Details Date Type Department Care Team (Late st Contact Info) Description 07/03/2023 Abstract [facility] [place] [facility] 112 [facility] 110 [place] [address] Frantz Conley MD 112 [facility] 110 [place], [place] [address] Social History Tobacco Use Types Packs/Day Years [...] often do you attend chur ch or jain services? More than 4 times [...] Recorded Patient Health Questionnaire-2 Score 0 08/22/2022 [facility] of Occupat ional Health - [...] place to sleep or slept in a retirement (including now)? No 04/15/2023 Sex and Gender [...] [facility] 110 [place] [address] Frantz Conley MD [address] [facility] 110 [place] [address] documented as of this encounter Visit Diagnoses Not on filedocumented in this encounter Care Teams Cardroom Drawing Runner Relationship Specialty Start Date End Date Frantz Conley MD [address] [facility] 110 [place] [address] PCP - General Internal Medicine 08/08/22 Frantz Conley MD [address] [facility] 110 [place] [address] PCP - ACO Reach 08/16/22 Jazmin Toribio, BLAYNE [address] [place] [address] Conservation Specialist Family Medicine 08/04/24 08/07/24 Dang Bosch LPN [address] [facility] 110 [place] [address] 08/07/24 08/07/24 documented as of this encounter
--- OUTSIDE RECORDS SUMMARY | 2024-12-29 14:02 | XMS_ITS | Encounter Summary ---
Author Organization [facility] Address [address] [place] [address] Care Team Providers Care Decorative Cutting Machine Tender Name Role Phone Frantz Conley MD Primary Care Provider [phone] Frantz Conley MD Unavailable [phone] Jazmin Toribio STRIP DEBURRER Unavailable [phone] Dang Bosch LPN Unavailable Encounter Details Date Type Department Care Team (Late st Contact Info) Description 10/22/2023 Abstract [facility] [place] [facility] 112 [facility] 110 [place] [address] Frantz Conley MD 112 [facility] 110 [place], [place] [id number] Social History Tobacco Use Types Packs/Day Years [...] often do you attend chur ch or faith services? More than 4 times per year [...] Recorded Patient Health Questionnaire-2 Score 0 10/21/2023 [facility] of Occupat ional Health - [...] Visit [facility] [place] Almaraz [address] [facility] 110 [place] [address] Frantz Conley MD [address] [facility] 110 [place] [address] documented as of this encounter Visit Diagnoses Not on filedocumented in this encounter Additional Health Concerns Assessment Noted Time PHQ-9 Depression Total Score: 0 10/21/19 24 11:00 AM EDT documented as of this encounter Care Teams Decorative Cutting Machine Tender Relationship Specialty Start Date End Date Frantz Conley MD [address] [facility] 110 [place] [address] PCP - General Internal Medicine 08/08/22 Frantz Conley MD [address] [facility] 110 [place] [address] PCP - ACO Reach 08/16/22 Jazmin Toribio, STRIP DEBURRER [address] [place] [address] Project Systems Engineer Family Medicine 08/04/24 08/07/24 Dang Bosch LPN [address] [facility] 110 [place] [address] 08/07/24 08/07/24 documented as of this encounter
--- OUTSIDE RECORDS SUMMARY | 2024-12-29 14:02 | XMS_ITS | Encounter Summary ---
Author Organization [facility] Address [address] [place] [address] Care Team Providers Care Cash Register Mechanic Name Role Phone Frantz Conley MD Primary Care Provider [phone] Frantz Conley MD Unavailable [phone] Jazmin Toribio CARBIDE DIE MAKER Unavailable [phone] Dang Bosch WOODWORKING SHOP HAND Unavailable Encounter Details Date Type Department Care Team (Late st Contact Info) Description 06/05/2023 External Result Encounter [facility] External Department Unsolicited Frantz Conley MD [address] [place] [address] Social History Tobacco Use Types Packs/Day Years [...] How often do you attend chur or muslim services? More than 4 times per year 04/15/2023 Do you belong to any clubs o r organizations such as mandaeism groups, unions, fraternal or athletic groups, or [...] Recorded Patient Health Questionnaire-2 Score 0 08/22/2022 [facility] of Occupat ional Health - [...] EDT Office Visit [facility] [place] 112 [facility] 110 [place] [address] Frantz Conley MD 112 [facility] 110 [place] [address] documented as of this encounter Procedures Procedure [...] Claros Jr., DKitaOKita06/05/2023 12:06 PM Dictation Location: [place] [address] Tech: Demi Weinberg Transcribed By: USMAN 06/05/23 1206 Dictated By: Kartik Claros Jr, DO 06/05/23 1206 Signed By: <Electronically signed by Kartik Claros Jr, DO in OV> 06/05/23 1206 Narrative 06/05/2023 12:09 PM EDT [place] [id number] Ultrasound Report Signed Patient: Pankaj Matthews MR#: [id number] : 1945 Acct:[id number] Age/Sex: 77 / M ADM Date: 06/05/23 [...] Procedure Note Radiology, Radiologist, MD - 06/05/[address] [address] Ultrasound Report Signed Patient: Pankaj Matthews AMR#: [id number] : 1945cct:[id number] Age/Sex: 77 / MADM Date: 06/05/23 Loc: [...] Claros Jr., D.OKita06/05/2023 12:06 PM Dictation Location: [place] [address] Tech: Demi Weinberg Transcribed By: PWS 06/05/23 1206 Dictated By: Kartik Claros Jr, DO 06/05/23 1206 Signed By: <Electronically signed by Kartik Claros Jr, DO inOV> 06/05/23 1206 us Frantz Conley MD IMG US PROCEDURES Final Result documented in this encounter Visit Diagnoses Not on filedocumented in this encounter Care Teams Cash Register Mechanic Relationship Specialty Start Date End Date Frantz Conley MD [address] [place] [address] PCP - General Internal Medicine 08/08/22 Frantz Conley MD [address] 110 [place] [address] PCP - ACO Reach 08/16/22 Jazmin Toribio, CARBIDE DIE MAKER [address] [place] [address] Agricultural Chemicals Inspector Family Medicine 08/04/24 08/07/24 Dang Bosch LPN [address] [place] [address] 08/07/24 08/07/24 documented as of this encounter
--- OUTSIDE RECORDS SUMMARY | 2024-12-29 14:02 | XMS_ITS ---
Author Organization [facility] Address [address] [facility] [place] [address] Care Team Providers Care Personal Injury Law Specialist Name Role Phone Frantz Conley MD Primary Care Provider [phone] Frantz Conley MD Unavailable [phone] Inpatient Discharge Transitional Care Management (TCM) Status:Closed (Closed) Start date:12/26/2024 Enrollment date:12/28/2024 Enrollment reason:Identified using hospital discharge data End date:12/28/2024 Close reason:Assistance not needed Overview Patient discharged from [facility] on 12/26. Please contact for hospital KIRSTEN and schedule follow-up appointment within 7-14 days. Continued Care and Services Coordination
--- OUTSIDE RECORDS SUMMARY | 2024-12-29 14:02 | XMS_ITS | Encounter Summary ---
Author Organization [facility] Address [address] [place] [address] Care Team Providers Care Pv Design And Installation Technician Name Role Phone Frantz Conley MD Primary Care Provider [phone] Frantz Conley MD Unavailable [phone] Jazmin Toribio BANNER PAINTER Unavailable [phone] Dang Bosch LPN Unavailable Encounter Details Date Type Department Care Team (Late st Contact Info) Description 06/20/2023 Abstract [facility] [place] [facility] 112 [facility] 110 [place] [phone] Frantz Conley MD [address] [facility] 110 [place], [place] [id number] Social History Tobacco Use Types Packs/Day Years [...] often do you attend chur ch or protestant services? More than 4 times [...] Recorded Patient Health Questionnaire-2 Score 0 08/22/2022 [facility] of Occupat ional [...] [facility] [place] Almar[place] [address] [facility] 110 [place] [address] Frantz Conley MD [address] [facility] 110 [place] [address] documented as of this encounter Visit Diagnoses Not on filedocumented in this encounter Care Teams Pv Design And Installation Technician Relationship Specialty Start Date End Date Frantz Conley MD [address] [facility] 110 [place] [address] PCP - General Internal Medicine 08/08/22 Frantz Conley MD [address] [facility] 110 [place] [address] PCP - ACO Reach 08/16/22 Jazmin Toribio, BLAYNE [address] [place] [address] Table Worker Family Medicine 08/04/24 08/07/24 Dang Bosch LPN [address] [facility] 110 [place] [address] 08/07/24 08/07/24 documented as of this encounter
--- OUTSIDE RECORDS SUMMARY | 2024-12-29 14:02 | XMS_ITS | Encounter Summary ---
Author Organization [facility] Address [address] [place] [place] [address] Care Team Providers Care Associate Spa Director Name Role Phone Frantz Conley MD Primary Care Provider [phone] Frantz Conley MD Unavailable [phone] Jazmin Toribio FOOD AND BEVERAGE SERVICE MANAGER Unavailable [phone] Dang Bosch LPN Unavailable Encounter Details Date Type Department Care Team (Late st Contact Info) Description 10/09/2023 Abstract [facility] [place] [facility] 112 [facility] 110 [place] [address] Frantz Conley MD 112 [facility] 110 [place], [place] [address] Social History Tobacco Use Types Packs/Day Years [...] often do you attend chur ch or pentecostalism services? More than 4 times per year 04/15/2023 Do you belong to any clubs o r organizations such as oriental orthodox groups, unions, [...] Recorded Patient Health Questionnaire-2 Score 0 08/22/2022 [facility] of Occupat ional [...] [facility] [place] Almaraz [address] [facility] 110 [place] [address] Frantz Conley MD [address] [facility] 110 [place] [address] documented as of this encounter Visit Diagnoses Not on filedocumented in this encounter Care Teams Associate Spa Director Relationship Specialty Start Date End Date Frantz Conley MD [address] [facility] 110 [place] [address] PCP - General Internal Medicine 08/08/22 Frantz Conley MD [address] [facility] 110 [place] [address] PCP - ACO Reach 08/16/22 Jazmin Toribio, BLAYNE [address] [place] [address] Internal Medicine Nurse Practitioner Family Medicine 08/04/24 08/07/24 Dang Bosch LPN [address] [facility] 110 [place] [address] 08/07/24 08/07/24 documented as of this encounter
--- OUTSIDE RECORDS SUMMARY | 2024-12-29 14:02 | XMS_ITS | Encounter Summary ---
Author Organization [facility] Address [address] [place] [address] Care Team Providers Care Expense Analyst Name Role Phone Frantz Conley MD Primary Care Provider [phone] Frantz Conley MD Unavailable [phone] Jazmin Toribio ROOFING APPRENTICE Unavailable [phone] Dang Bosch LPN Unavailable Encounter Details Date Type Department Care Team (Late st Contact Info) Description 10/24/2023 Abstract [facility] [place] [facility] 112 [facility] 110 [place] [address] Frantz Conley MD 112 [facility] 110 [place], [place] [id number] Social History Tobacco Use Types Packs/Day Years [...] any clubs o r organizations such as bahai groups, unions, fraternal or athletic groups, or [...] Visit [facility]S [place] [address] [facility] 110 [place] [address] Frantz Conley MD [address] [facility] 110 [place] [address] documented as of this encounter Visit Diagnoses Not on filedocumented in this encounter Additional Health Concerns Assessment Noted Time PHQ-9 Depression Total Score: 0 10/21/19 24 11:00 AM EDT documented as of this encounter Care Teams Expense Analyst Relationship Specialty Start Date End Date Frantz Conley MD [address] [facility] 110 [place] [address] PCP - General Internal Medicine 08/08/22 Frantz Conley MD [address] [facility] 110 [place] [address] PCP - ACO Reach 08/16/22 Jazmin Toribio, ROOFING APPRENTICE [address] [place] [address] Women'S Ministry Director Family Medicine 08/04/24 08/07/24 Dang Bosch LPN [address] [facility] 110 [place] [address] 08/07/24 08/07/24 documented as of this encounter
--- OUTSIDE RECORDS SUMMARY | 2024-12-29 14:02 | XMS_ITS | Encounter Summary ---
Author Organization [facility] Address [address] [place] [address] Care Team Providers Care Service Inspector Name Role Phone Frantz Conley MD Primary Care Provider [phone] Frantz Conley MD Unavailable [phone] Jazmin Toribio PROMOTIONS EXECUTIVE Unavailable [phone] Dang Bosch LPN Unavailable Encounter Details Date Type Department Care Team (Late st Contact Info) Description 12/16/2023 Abstract [facility] [place] [facility] 112 [facility] 110 [place] [address] Frantz Conley MD 112 [facility] 110 [place], [place] [address] Social History Tobacco Use Types Packs/Day Years [...] often do you attend chur ch or roman catholic services? More than 4 [...] Recorded Patient Health Questionnaire-2 Score 0 10/21/2023 [facility] of Occupat ional Health - Occupational [...] Visit [facility] [place] Almaraz [address] [facility] 110 [place] [address] Frantz Conley MD [address] [facility] 110 [place] [address] documented as of this encounter Visit Diagnoses Not on filedocumented in this encounter Additional Health Concerns Assessment Noted Time PHQ-9 Depression Total Score: 0 10/21/19 24 11:00 AM EDT documented as of this encounter Care Teams Service Inspector Relationship Specialty Start Date End Date Frantz Conley MD [address] [facility] 110 [place] [address] PCP - General Internal Medicine 08/08/22 Frantz Conley MD [address] [facility] 110 [place] [address] PCP - ACO Reach 08/16/22 Jazmin Toribio, PROMOTIONS EXECUTIVE [address] [place] [address] Piped Buttonhole Machine Operator Family Medicine 08/04/24 08/07/24 Dang Bosch LPN [address] [facility] 110 [place] [address] 08/07/24 08/07/24 documented as of this encounter
--- OUTSIDE RECORDS SUMMARY | 2024-12-29 14:02 | XMS_ITS | Encounter Summary ---
Author Organization [facility] Address [address] [place] [address] Care Team Providers Care Flat Cutter Name Role Phone Frantz Conley MD Primary Care Provider [phone] Frantz Conley MD Unavailable [phone] Jazmin Toribio BEEF PUSHER Unavailable [phone] Dang Bosch LPN Unavailable Encounter Details Date Type Department Care Team (Late st Contact Info) Description 05/08/2023 Abstract [facility] [place] [facility] 112 [facility] 110 [place] [address] Frantz Conley MD 112 [facility] 110 [place], [place] [address] Social History Tobacco Use Types Packs/Day Years [...] often do you attend chur ch or denominational services? More than 4 times per year 04/15/2023 Do you belong to any clubs o r organizations such as gnosticism groups, unions, fraternal or athletic groups, or [...] Recorded Patient Health Questionnaire-2 Score 0 08/22/2022 [facility] of Occupat ional Health - Occupational Stress [...] Visit N[facility]S [place] Almaraz [address] [facility] 110 [place] [address] Frantz Conley MD [address] [facility] 110 [place] [address] documented as of this encounter Visit Diagnoses Not on filedocumented in this encounter Care Teams Flat Cutter Relationship Specialty Start Date End Date Frantz Conley MD [address] [facility] 110 [place] [address] PCP - General Internal Medicine 08/08/22 Frantz Conley MD [address] [facility] 110 [place] [address] PCP - ACO Reach 08/16/22 Jazmin Toribio, BLAYNE [address] [place] [address] Histotechnologist Family Medicine 08/04/24 08/07/24 Dang Bosch LPN [address] [facility] 110 [place] [address] 08/07/24 08/07/24 documented as of this encounter
--- OUTSIDE RECORDS SUMMARY | 2024-12-29 14:02 | XMS_ITS | Encounter Summary ---
Author Organization [facility] Address [address] [place] [address] Care Team Providers Care Hot Billet Shear Operator Name Role Phone Frantz Conley MD Primary Care Provider [phone] Frantz Conley MD Unavailable [phone] Jazmin Toribio PUMPING SUPERVISOR Unavailable [phone] Dang Bosch LPN Unavailable Encounter Details Date Type Department Care Team (Late st Contact Info) Description 10/23/2023 Abstract [facility] [place] [facility] 112 [facility] 110 [place] [address] Frantz Conley MD 112 [facility] 110 [place], [place] [address] Social History Tobacco Use Types Packs/Day Years [...] often do you attend chur ch or moravian services? More than 4 times [...] Recorded Patient Health Questionnaire-2 Score 0 10/21/2023 [facility] of Occupat ional Health - Occupational [...] Visit [facility] [place] Almaraz [address] [facility] 110 [place] [address] Frantz Conley MD [address] [facility] 110 [place] [address] documented as of this encounter Visit Diagnoses Not on filedocumented in this encounter Additional Health Concerns Assessment Noted Time PHQ-9 Depression Total Score: 0 10/21/19 24 11:00 AM EDT documented as of this encounter Care Teams Hot Billet Shear Operator Relationship Specialty Start Date End Date Frantz Conley MD [address] [facility] 110 [place] [address] PCP - General Internal Medicine 08/08/22 Frantz Conley MD [address] [facility] 110 [place] [address] PCP - ACO Reach 08/16/22 Jazmin Toribio, PUMPING SUPERVISOR [address] [place] [address] Forms Analysis Manager Family Medicine 08/04/24 08/07/24 Dang Bosch LPN [address] [facility] 110 [place] [address] 08/07/24 08/07/24 documented as of this encounter
--- OUTSIDE RECORDS SUMMARY | 2024-12-29 14:02 | XMS_ITS | Encounter Summary ---
Author Organization [facility] Address [address] [place] [address] Care Team Providers Care Risk Management Specialist Name Role Phone Frantz Conley MD Primary Care Provider [phone] Frantz Conley MD Unavailable [phone] Jazmin Toribio DUCK OPERATOR Unavailable [phone] Dang Bosch LPN Unavailable Encounter Details Date Type Department Care Team (Late st Contact Info) Description 05/21/[address] [facility] 112 [facility] 110 [place] [address] Frantz Conley MD 112 [facility] 110 [place], [place] [address] Social History Tobacco Use Types Packs/Day Years [...] often do you attend chur ch or presybeterian services? More than 4 times per year 04/15/2023 Do you belong to any clubs o r organizations such as nondenominational groups, unions, fraternal or athletic groups, or [...] Visit N[facility]S [place] [address] [facility] 110 [place] [address] Frantz Conley MD [address] [facility] 110 [place] [address] documented as of this encounter Visit Diagnoses Not on filedocumented in this encounter Care Teams Risk Management Specialist Relationship Specialty Start Date End Date Frantz Conley MD [address] [facility] 110 [place] [address] PCP - General Internal Medicine 08/08/22 Frantz Conley MD [address] [facility] 110 [place] [address] PCP - ACO Reach 08/16/22 Jazmin Toribio, BLAYNE [address] [place] [address] Director Of Slot Operations Family Medicine 08/04/24 08/07/24 Dang Bosch LPN [address] [facility] 110 [place] [address] 08/07/24 08/07/24 documented as of this encounter
--- OUTSIDE RECORDS SUMMARY | 2024-12-29 14:02 | XMS_ITS | Encounter Summary ---
Author Organization [facility] Address [address] [place] [address] Care Team Providers Care E M Assembler Name Role Phone Frantz Conley MD Primary Care Provider [phone] Frantz Conley MD Unavailable [phone] Jazmin Toribio ATHLETIC COACH Unavailable [phone] Dang Bosch LPN Unavailable Encounter Details Date Type Department Care Team (Late st Contact Info) Description 09/18/2023 Abstract [facility] [place] [facility] 112 [facility] 110 [place] [address] Frantz Conley MD 112 [facility] 110 [place], [place] [address] Social History Tobacco Use Types Packs/Day Years [...] often do you attend chur ch or adventism services? More than 4 times per year [...] [address] [facility] 110 [place] [address] Frantz Conley MD [address] [facility] 110 [place] [address] documented as of this encounter Visit Diagnoses Not on filedocumented in this encounter Care Teams E M Assembler Relationship Specialty Start Date End Date Frantz Conley MD [address] [facility] 110 [place] [address] PCP - General Internal Medicine 08/08/22 Frantz Conley MD [address] [facility] 110 [place] [address] PCP - ACO Reach 08/16/22 Jazmin Toribio, BLAYNE [address] [place] [address] Orthotist Family Medicine 08/04/24 08/07/24 Dang Bosch LPN [address] [facility] 110 [place] [address] 08/07/24 08/07/24 documented as of this encounter
--- OUTSIDE RECORDS SUMMARY | 2024-12-29 14:02 | XMS_ITS | Encounter Summary ---
Author Organization [facility] Address [address] [place] [address] Care Team Providers Care Environmental Planning Engineer Name Role Phone Frantz Conley MD Primary Care Provider [phone] Frantz Conley MD Unavailable [phone] Encounter Details Date Type Department Care Team (Late st Contact Info) Description 10/05/2024 [facility] [address] [facility] 110 [place] [address] Frantz Conley MD 112 [facility] 110 [place] [address] Social History Tobacco Use Types [...] How often do you attend chur or hinduism services? More than 4 times per year [...] Recorded Patient Health Questionnaire-2 Score 0 10/05/2024 [facility] of Occupat ionin Health - Occupational Stress Questionnaire Answer Date [...] Visit NOMS [place] [address] [facility] 110 [place] [address] Frantz Conley MD 112 [facility] 110 [place] [address] documented as of this encounter Visit Diagnoses Not on filedocumented in this encounter Additional Health Concerns Assessment Noted Time PHQ-9 Depression Total Score: 0 10/21/19 24 11:00 AM EDT documented as of this encounter Care Teams Environmental Planning Engineer Relationship Specialty Start Date End Date Frantz Conley MD 112 [facility] 110 [place] [address] PCP - General Internal Medicine 08/08/22 Frantz Conley MD 112 [facility] 110 [place] [address] PCP - ACO Reach 08/16/22 documented as of this encounter
--- OUTSIDE RECORDS SUMMARY | 2024-12-29 14:14 | XMS_ITS | CCD ---
Author Organization [facility] ion [facility] Care Team Providers Care Stripper Preliminary Name Role Phone Zahler, Hardeep Unavailable Unavailable [...] Care Unavailable LIBBY Conley Primary Care Provider [phone] MD Mick Branch Attending Provider LIBBY Conley Attending Provider LIBBY Conley Primary Care Provider LIBBY Conley Referring Provider MD Zoila Castorena Attending Provider MD Mick Branch Attending Provider MD Jose Manning Attending Provider Frantz Conley MD Primary Care Provider Frantz Conley MD Unavailable MD Jose Manning Attending Provider LIBBY Conley Primary Care Provider [phone] LIBBY Conley Attending Provider Frantz Conley MD Primary Care Provider LIBBY Conley Primary Care Provider MD Mick Branch Attending Provider Jarvis IIFrantz Primary Care Provider Mick Branch MD Attending Provider [phone] CRESCENCIO MARIN Attending Unavailable CRESCENCIO MARIN Referring [...] Branch Admitting Unavailable Mick Branch Attending Unavailable iMck Branch Admitting Unavailable Mick Branch Attending Unavailable Frantz Conley Primary Care Unavailable David CROFT, Rc Attending Provider Medications Current Medications Medication Drug Class(es) Dates Sig (Normalized) Sig (Original) atorvastatin 20 mg oral tablet (20 sources) HMG-CoA Reductase Inhibitor Start: 04-26-2021 End: 10-30-2025 take 1 tablet by mouth once daily in the morning clopidogrel 75 mg oral tablet (20 sources) [...] by mouth once daily in the morning docosahexaenoic acid 120 mg / eicosapentaenoic acid 180 mg oral capsule (4 sources) take 1 capsule by mo uth once daily fish oil concentrate (Garland-3) 120-180 mg capsule Take 1 capsule (1,000 mg) by mouth once daily. Active take 1 capsule by mouth three ti mes daily Garland-3 Fatty Acids (FISH OIL) 1000 MG CAPS Take 1,000 mg by mouth 3 times daily 0 Active ferrous gluconate 240 mg oral tablet (4 sources) take 1 tablet by mouth once daily Ferrous Gluconate (iron) 240 (27 Fe) MG tablet Take 1 tablet by mouth Daily Active Fish Oils (3 sources) Fish Oil 1000 MG DAILY Active levothyroxine sodium 0.088 mg oral tablet (20 sources) l-Thyroxine Start: 05-14-2023 take 1 tablet by mouth once daily Start: 04-26-2021 End: 10-09-2023 take 1 tablet [...] Vitamins-Minerals ( ONE DAILY ADULTS 50+ PO) (18 sources) take 1 tablet by mouth once [...] Orally Once a day Active Multivitamin Tablet (5 sources) Start: 04-26-2021 take 1 tablet by [...] tablet by mouth once daily. 0 Active Garland 1-Biw-Wgz-Fish Oil (Fish Oil) 1,000 mg (120 mg-180 mg) Capsule (14 sources) Start: 04-26-2021 take 1 capsule by mouth three times daily Garland 4-Wut-Zqp-Fish Oil (Fish Oil) 1,000 mg (120 mg-180 mg) Capsule Active 1 CAP PO Three times daily April 26, 2021 1:00am Complies with drug therapy Start: 04-26-2021 take 1 capsule by [facility] three times daily Start: 04-26-2021 take 1 capsule by [facility] three times daily Garland 1-Kjy-Hsa-Fish Oil (Fish Oil) 1,000 mg (120 mg-180 mg) Capsule Active 1 CAP PO Three times daily April 26, 2021 12:00am Start: 04-26-2021 take 1 capsule by [facility] three times daily Garland 0-Jwa-Vao-Fish Oil (Fish Oil) 1,000 mg (120 mg-180 mg) Capsule Active 1 CAP PO Three times daily April 26, 2021 1:00am Garland-3 Fatty Acids (Fish Oil) 1000 MG capsule delayed-release (18 sources) Start: 09-13-2014 take 1 capsule by mouth once daily Garland-3 Fatty Acids (Fish Oil) 1000 MG capsule delayed-release Take 1 capsule by mouth 1 (one) time each day. 09/13/2014 Active Start: 09-13-2014 take 1 capsule by [facility] once daily Garland-3 Fatty Acids (Fish Oil) 1000 MG capsule [...] Active Start: 04-18-2023 take 1 tablet by [facility] twice daily as needed Start: 04-18-2023 tiZANidine (Za naflex) 4 MG [...] / HYDROcodone bitartrate 5 mg oral tablet (14 sources) Opioid Agonist Start: 05-10-2021 End: 09-19-2021 [...] Discontinued 3.125 MG PO Twice daily 60 April 30, 2024 2:13pm November 11, 2024 1:37pm must administer with a meal/food ferrous sulfate 325 mg oral tablet (2 sources) End: 10-20-2024 take 1 tablet by mouth at mealtime ferrous sulfate 325 (65 Fe) MG tablet Take 325 mg by mouth in the morning. Take with meals. 10/20/2024 Discontinued (Other) meclizine hydrochloride 25 mg oral tablet (10 sources) Antiemetic Start: 09-17-2023 End: 10-09-2023 take [...] Substituted for Omeprazole (PRILOSEC). polyethylene glycol 3350 [id number] mg powder for oral solution (1 source) [...] [Other specified counseling] 10-20-2024 Episodic Anxiety disorders (20 sources) Anxiety; Translations: [Other specified anxiety disorders] [...] depolarization] Onset: 08-13-2022 08-13-2022 Chronic Cardiac dysrhythmias (14 sources) Bradycardia; Translations: [Bradycardia, unspecified] Onset: 01-01-2024 [...] Onset: 08-13-2022 08-13-2022 Chronic Diverticulosis and diverticulitis (20 sources) Diverticulosis of colon; Translations: [Diverticulosis of [...] Chronic Hypertension with complications and secondary hypertension (20 sources) Hypertensive heart AND chronic kidney disease [...] Onset: 08-18-2021 Episodic Miscellaneous mental health disorders (20 sources) Chronic insomnia; Translations: [Psychophysiologic insomnia] Onset: 08-13-2022 08-13-2022 Chronic Nutritional deficiencies (20 sources) Vitamin D deficiency; Translations: [Vitamin D deficiency, unspecified] Onset: 08-13-2022 08-13-2022 Chronic Open wounds of head; neck; and trunk (3 sources) Facial laceration ; Translations: [Laceration without foreign body of other part of head, initial encounter] Onset: 08-18-2021 Episodic Other aftercare (1 source) alf (current) use of aspirin; Translations: [FISHER HAND LINE CURRENT USE OF ASPIRIN] Onset: 08-18-2021 Episodic Other aftercare (1 source) alf (current) use of antithrombotics/antipl atelets; Translations: [FISHER HAND LINE ANTITHROMBOT/ANTIPLATL ETS] Onset: 08-18-2021 Episodic Other and ill-defined heart disease (6 sources) Diastolic dysfunction; Translations: [Other ill-defined heart diseases] Onset: 10-20-2024 10-20-2024 Chronic Other disorders of stomach and duodenum (6 sources) Vascular ectasia of gastric antrum; Translations: [...] 09-13-2021 Resolved: 09-13-2021 Chronic Other liver diseases (11 sources) Cirrhosis - non-alcoholic; Translations: [Unspecified cirrhosis of liver] 09-17-2023 Chronic Other nervous system disorders (20 sources) Chronic pain; Translations: [Other chronic pain] Onset: 08-13-2022 08-13-2022 Chronic Other nutritional; endocrine; and metabolic disorders (2 sources) Body mass index 30+ - obesity; Translations: [Body mass index (BMI) 30.0-30.9, adult] Onset: 09-08-2024 09-08-2024 Chronic Other nutritional; endocrine; and metabolic disorders (2 sources) Body mass index (BMI) 30.0-30.9, adult; Translations: [Body mass index (BMI) 30.0-30.9, adult] Onset: 09-08-2024 Chronic Pulmonary heart disease (6 sources) Secondary pulmonary hypertension; Translations: [Other secondary [...] Date Documented Da te Episodic/Chronic Abdominal pain (19 sources) Right upper quadrant pain; Translations: [Right upper quadrant pain] Onset: 02-07-2021 Resolved: 10-21-2023 08-13-2022 Episodic Acute cerebrovascular disease (20 sources) Hemorrhage into subarachnoid space of neuraxis; Translations: [Nontraumatic subarachnoid hemorrhage, unspecified] Onset: 08-16-2021 Resolved: 10-21-2023 Chronic Coronary atherosclerosis and other heart disease (3 sources) Presence of coronary angioplasty implant and graft; Translations: [PRESENCE COR ANGPLSTY IMPLANT AND GRAFT] Onset: 02-07-2021 Episodic Mood disorders (15 sources) Mood disorders Onset: 10-21-2023 Resolved: 10-20-2024 10-21-2023 Mycoses (18 sources) Onychomycosis due to dermatophyte ; Translations: [Tinea unguium] Onset: 08-13-2022 Resolved: 10-20-2024 08-13-2022 Episodic Other acquired deformities (20 sources) Spondylolysis of cervical spine; Translations: [Spondylolysis, cervical region] Onset: 08-13-2022 08-13-2022 Episodic Other aftercare (1 source) Other terminologist (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 therapy; Translations: [OTH RESIDENTIAL CURRENT DRUG THERAPY] Onset: 02-07-2021 Episodic Other connective tissue disease (20 sources) Cramp; Translations: [Cramp and spasm] Onset: 08-13-2022 08-13-2022 Episodic Other disorders of stomach and duodenum (18 sources) Indigestion; Translations: [Functional dyspepsia] Onset: 08-13-2022 Resolved: 10-20-2024 08-13-2022 Episodic Other lower respiratory disease (3 sources) Pleurodynia; Translations: [PLEURODYNIA] Onset: 02-03-2021 Episodic Other nervous system disorders (20 sources) Unsteady when standing; Translations: [Unsteadiness on feet] Onset: 08-13-2022 08-13-2022 Episodic Other nutritional; endocrine; and metabolic disorders (9 sources) Overweight in adulthood with body mass [...] WITH AUTO DIFFon BASOPHILS ABSOLUTE AUTO 0 [facility] Basophils/100 WBC (Bld) 0.6 % 0.2 - 2.0 % [facility] Eosinophils/100 WBC (Bld) 3.2 % 0.9 - 7.0 % [facility] Erythrocyte distribution width (RBC) [Ratio] 14.3 % 11.0 - 15.0 % [facility] Hematocrit (Bld) [Volume fraction] 33.2 % Low 42.0 - 54.0 % [facility] Hemoglobin (Bld) [Mass/Vol] 10.8 g/dL Low 14.0 - 18.0 g/dL [facility] IMMATURE GRANULOCYTES ABS AUTO 0.01 [facility] Immature granulocytes/100 WBC (Bld) 0.3 % 0.0 - 0.5 % [facility] Interpretation and review of laboratory results Abnormal [facility] LYMPHOCYTES ABSOLUTE AUTO 0.6 Low [facility] Lymphocytes/100 WBC (Bld) 19.4 % Low 20.5 - 60.0 % [facility] MCH (RBC) [Entitic mass] 31.5 pg 25.9 - 34.0 pg [facility] MCHC (RBC) [Mass/Vol] 32.5 g/dL 29.9 - 35.2 g/dL [facility] MCV (RBC) [Entitic vol] 96.8 fL High 80.0 - 94.0 fL [facility] MONOCYTES ABSOLUTE AUTO 0.2 Low [facility] Monocytes/100 WBC (Bld) 7.3 % 1.7 - 12.0 % [facility] NEUTROPHILS ABSOLUTE AUTO 2.2 [facility] Neutrophils/100 WBC (Bld) 69.2 % 43.0 - 75.0 % [facility] Platelet mean volume (Bld) [Entitic vol] 11 fL 9.5 - 13.5 fL [facility] TBH EO # 0.1 [facility] TB PLT 83 Low [facility] TB RBC 3.43 Low [facility] TBH WBC 3.1 Low [facility] Alanine aminotransferase [En zymatic activity/volume] in Serum or PlasmaOrdered By: Mick Branch on 11-02-2024 ALT [Catalytic activity/Vol] 52 U/L [facility] Comment on above: Performed By: #### C MP, CBC, PT #### [facility] [address] [place] [address] [place] Albumin [Mass/volume] in Ser um or Plasma by Bromocresol green (BCG) dye binding methoOrdered By: Mick Branch on 11-02-2024 Albumin BCG dye [Mass/Vol] 3.1 g/dL Low 3.5-5.7 [facility] Alkaline phosphatase [Enzyma tic activity/volume] in Serum or PlasmaOrdered By: Mick Branch on 11-02-2024 ALP [Catalytic activity/Vol] 124 U/L High 34-104 [facility] Comment on above: Result Comment: PERF ORMED BY: [place] [address] PATHOLOGIST [employer] GUERA MARROQUIN M.D. Performed By: #### C MP, CBC, PT #### [address] Aspartate aminotransferase [ Enzymatic activity/volume] in Serum or PlasmaOrdered By: Mick Branch on 11-02-2024 AST [Catalytic activity/Vol] 58 U/L High 13-39 [facility] Comment on above: Performed By: #### C MP, CBC, PT #### [place] [address] [place] Basophils [#/volume] in Bloo d by Automated countOrdered By: Mick Branch on 11-02-2024 Basophils (Bld) [#/Vol] 0.0 10*3/uL 0.0-0.2 [facility] Comment on above: Result Comment: PERF ORMED BY: [place] [address] PATHOLOGIST [employer] GUERA MARROQUIN M.D. Performed By: #### C MP, CBC, PT #### [place] [address] [place] Basophils/100 leukocytes in Blood by Automated countOrdered By: Mick Branch on 11-02-2024 Basophils/100 WBC (Bld) 0.8 % . [facility] Comment on above: Performed By: #### C MP, CBC, PT #### [facility] [address] Bilirubin.total [Mass/volume ] in Serum or PlasmaOrdered By: Mick Branch on 11-02-2024 Bilirubin [Mass/Vol] 0.9 mg/dL 0.3-1.0 [facility] Comment on above: Performed By: #### C MP, CBC, PT #### [facility] [address] Calcium [Mass/volume] in Ser um or PlasmaOrdered By: Mick Branch on 11-02-2024 Calcium [Mass/Vol] 7.9 mg/dL Low 8.6-10.3 [facility] Comment on above: Performed By: #### C MP, CBC, PT #### [address] Carbon dioxide, total [Moles /volume] in Serum or PlasmaOrdered By: Mick Branch on 11-02-2024 CO2 [Moles/Vol] 29.1 mmol/L 21.0-31.0 [facility] Comment on above: Performed By: #### C MP, CBC, PT #### [address] Chloride [Moles/volume] in S lilly or PlasmaOrdered By: Mick Branch on 11-02-2024 Chloride [Moles/Vol] 110 mmol/L High 98-107 [facility] Comment on above: Performed By: #### C MP, CBC, PT #### [address] Complete Blood Count Auto Di ffon 11-02-2024 Mean Corpuscular HGB Conc 33.5 g/dL Normal 32.5-35.6 [facility] Comment on above: Performed By: #### C MP, CBC, PT #### [address] NRBC% 0.0 /100{WBC} Normal 0-0.5 [facility] Comment on above: Performed By: #### C MP, CBC, PT #### [facility] [address] White Blood Count 3.0 [CFU]/mL Low 4.1-10.5 [facility] Comment on above: Performed By: #### C MP, CBC, PT #### [address] Comprehensive Metabolic Pane ross 11-02-2024 Albumin [Mass/Vol] 3.1 g/dL Low 3.5-5.7 [facility] Comment on above: Performed By: #### C MP, CBC, PT #### [facility] [address] [place] [address] [place] GFR/1.73 sq M.predicted MDRD (S/P/Bld) [Vol rate/Area] mL/min/{1.73_m2} Normal [facility] Comment on above: Performed By: #### C MP, CBC, PT #### [facility] [address] [place] [address] Creatinine [Mass/volume] in Serum or PlasmaOrdered By: Mick Branch on 11-02-2024 Creatinine [Mass/Vol] 0.71 mg/dL 0.70-1.30 [facility] Comment on above: Performed By: #### C MP, CBC, PT #### [place] [address] [place] Eosinophils [#/volume] in Bl ood by Automated countOrdered By: Mick Branch on 11-02-2024 Eosinophils (Bld) [#/Vol] 0.1 10*3/uL 0.0-0.45 [facility] Comment on above: Performed By: #### C MP, CBC, PT #### [facility] [address] [place] [address] [place] Eosinophils/100 leukocytes i n Blood by Automated countOrdered By: Mick Branch on 11-02-2024 Eosinophils/100 WBC (Bld) 1.8 % . [facility] Comment on above: Performed By: #### C MP, CBC, PT #### [address] Erythrocyte distribution wid th [Ratio] by Automated countOrdered By: Mick Branch on 11-02-2024 Erythrocyte distribution width (RBC) [Ratio] 16.4 % High 12.0-14.8 [facility] Comment on above: Performed By: #### C MP, CBC, PT #### [facility] [address] Erythrocytes [#/volume] in B lood by Automated countOrdered By: Mick Branch on 11-02-2024 RBC (Bld) [#/Vol] 3.58 10*6/uL Low 3.90-5.60 [facility] Comment on above: Performed By: #### C MP, CBC, PT #### [facility] [address] Glucose [Mass/volume] in Ser um or PlasmaOrdered By: Mick Branch on 11-02-2024 Glucose [Mass/Vol] 120 mg/dL High 70-100 [facility] Comment on above: ADA recommended refe rence rangeRandom Glucose Reference Range is dependent on time and content of last meal. Glucose of more than 200 mg/dL in a nonstressed, ambulatory subject supports the diagnosis of Diabetes Mellitus. Result Comment: [place] Glucose Reference Range is dependent on time and content of last meal. Glucose of more than 200 mg/dL in a nonstressed, ambulatory subject supports the diagnosis of Diabetes Mellitus. ADA recommended reference range Performed By: #### C MP, CBC, PT #### [facility] [address] Hematocrit [Volume Fraction] of Blood by Automated countOrdered By: Mick Branch on 11-02-2024 Hematocrit (Bld) [Volume fraction] 34.1 % Low 38.8-50.0 [facility] Comment on above: Performed By: #### C MP, CBC, PT #### [facility] [address] Hemoglobin [Mass/volume] in BloodOrdered By: Mick Branch on 11-02-2024 Hemoglobin (Bld) [Mass/Vol] 11.4 g/dL Low 13.0-17.0 [facility] Comment on above: Performed By: #### C MP, CBC, PT #### [address] INR in Platelet poor plasma by Coagulation assayOrdered By: Mick Branch on 11-02-2024 INR Coag (PPP) [Relative time] 1.2 {INR} [facility] Comment on above: INR Therapeutic [...] heart valves: 3 - 4.5 PERFORMED BY: [place] [address] PATHOLOGIST [employer] GUERA MARROQUIN M.D. Performed By: #### C MP, CBC, PT #### [address] Leukocytes [#/volume] correc britt for nucleated erythrocytes in Blood by Automated counOrdered By: Mick Branch on 11-02-2024 WBC corrected for nucl RBC Auto (Bld) [#/Vol] 3.0 10*3/uL Low 4.1-10.5 [facility] Leukocytes [#/volume] in Blo od by Automated countOrdered By: Mick Branch on 11-02-2024 WBC (Bld) [#/Vol] 3.0 10*3/uL Low 4.1-10.5 [facility] Comment on above: Performed By: #### C MP, CBC, PT #### [address] Lymphocytes [#/volume] in Bl ood by Automated countOrdered By: Mick Branch on 11-02-2024 Lymphocytes (Bld) [#/Vol] 0.5 10*3/uL Low 1.00-4.8 [facility] Comment on above: Performed By: #### C MP, CBC, PT #### [address] Lymphocytes/100 leukocytes i n Blood by Automated countOrdered By: Mick Branch on 11-02-2024 Lymphocytes/100 WBC (Bld) 15.8 % . [facility] Comment on above: Performed By: #### C MP, CBC, PT #### [address] MCH [Entitic mass] by Automa britt countOrdered By: Mick Branch on 11-02-2024 MCH (RBC) [Entitic mass] 31.9 pg 27.5-35.2 [facility] Comment on above: Performed By: #### C MP, CBC, PT #### [address] MCHC Auto (RBC) [Mass/Vol]Or dered By: Mick Branch on 11-02-2024 MCHC (RBC) [Mass/Vol] 33.5 g/dL 32.5-35.6 [facility] MCV [Entitic volume] by Auto mated countOrdered By: Mick Branch on 11-02-2024 MCV (RBC) [Entitic vol] 95.2 fL 83.5-101 [facility] Comment on above: Performed By: #### C MP, CBC, PT #### [place] [address] [place] Monocytes [#/volume] in Bloo d by Automated countOrdered By: Mick Branch on 11-02-2024 Monocytes (Bld) [#/Vol] 0.2 10*3/uL 0.0-0.8 [facility] Comment on above: Performed By: #### C MP, CBC, PT #### [facility] [address] Monocytes/100 leukocytes in Blood by Automated countOrdered By: Mick Branch on 11-02-2024 Monocytes/100 WBC (Bld) 6.7 % . [facility] Comment on above: Performed By: #### C MP, CBC, PT #### [facility] [address] [place] [address] Neutrophils [#/volume] in Bl ood by Automated countOrdered By: Mick Branch on 11-02-2024 Neutrophils (Bld) [#/Vol] 2.2 10*3/uL 1.8-7.7 [facility] Comment on above: Performed By: #### C MP, CBC, PT #### [facility] [address] [place] [address] Neutrophils/100 leukocytes i n Blood by Automated countOrdered By: Mick Branch on 11-02-2024 Neutrophils/100 WBC (Bld) 74.9 % . [facility] Comment on above: Performed By: #### C MP, CBC, PT #### [facility] [address] [place] [address] No Panel InformationOrdered By: Mick Branch on 11-02-2024 Estimated GFR (CKD-EPI) > 60.0 mL/Min [facility] Creatinine Clearance (Chem N/A [facility] Nucleated erythrocytes [Pres ence] in Blood by Automated countOrdered By: Mick Branch on 11-02-2024 Nucleated RBC Auto Ql (Bld) 0.0 /100{WBC} 0-0.5 [facility] Platelet mean volume [Entiti c volume] in Blood by Automated countOrdered By: Mick Branch on 11-02-2024 Platelet mean volume (Bld) [Entitic vol] 8.0 fL 6.6-10.1 [facility] Comment on above: Performed By: #### C MP, CBC, PT #### [facility] [address] [place] [address] Platelets [#/volume] in Bloo d by Automated countOrdered By: Mick Branch on 11-02-2024 Platelets (Bld) [#/Vol] 102 10*3/uL Low 150-450 [facility] Comment on above: Performed By: #### C MP, CBC, PT #### [facility] [address] Potassium [Moles/volume] in Serum or PlasmaOrdered By: Mick Branch on 11-02-2024 Potassium [Moles/Vol] 3.9 mmol/L 3.5-5.1 [facility] Comment on above: Performed By: #### C MP, CBC, PT #### [facility] [address] Protein [Mass/volume] in Ser um or PlasmaOrdered By: Mick Branch on 11-02-2024 Protein [Mass/Vol] 5.8 g/dL Low 6.4-8.9 [facility] Comment on above: Performed By: #### C MP, CBC, PT #### [facility] [address] Prothrombin time (PT)Ordered By: Mick Branch on 11-02-2024 PT Coag (PPP) [Time] 13.5 s High 9.0-12.9 [facility] Comment on above: A hematocrit value g reater than 55% may lead to inaccurate results in coagulation testing. Patients having hematocrit values >55% require a special collection tube for coagulation studies. Please contact the laboratory at [phone] for redraw instructions. Result Comment: A he matocrit value greater than 55% may lead to inaccurate results in coagulation testing. Patients having hematocrit values >55% require a special collection tube for coagulation studies. Please contact the laboratory at [phone] for redraw instructions. Performed By: #### C MP, CBC, PT #### [facility] [address] Serum globulin measurement b y calculation (mass/volume)Ordered By: Mick Branch on 11-02-2024 Globulin (S) [Mass/Vol] 2.7 g/dL [facility] Comment on above: Performed By: #### C MP, CBC, PT #### [facility] [address] [place] [address] Serum or plasma albumin/glob ulin mass ratioOrdered By: Mick Branch on 11-02-2024 Albumin/Globulin [Mass ratio] 1.1 {ratio} [facility] Comment on above: Performed By: #### C MP, CBC, PT #### [address] Serum or plasma anion gap de terminationOrdered By: Mick Branch on 11-02-2024 Anion gap [Moles/Vol] 5.8 mmol/L Low 6.0-15.0 [facility] Comment on above: Performed By: #### C MP, CBC, PT #### [address] Sodium [Moles/volume] in Ser um or PlasmaOrdered By: Mick Branch on 11-02-2024 Sodium [Moles/Vol] 141 mmol/L 136-145 [facility] Comment on above: Performed By: #### C MP, CBC, PT #### [address] Urea nitrogen [Mass/volume] in Serum or PlasmaOrdered By: Mick Branch on 11-02-2024 Urea nitrogen [Mass/Vol] 15 mg/dL 7-25 [facility] Comment on above: Performed By: #### C MP, CBC, PT #### [address] ALL BASIC METABOLIC PANELon 10-01-2024 Anion gap [Moles/Vol] 13.1 mmol/L NO [facility] Calcium [Mass/Vol] 9 mg/dL 8.5 - 10. 1 mg/dL [facility] Chloride [Moles/Vol] 111 mmol/L High 98 - 10 7 mmol/L [facility] CO2 [Moles/Vol] 26.2 mmol/L 21.0 - 32.0 [facility] Creatinine [Mass/Vol] 0.89 mg/dL 0.70 - 1.30 [facility] GFR/1.73 sq M.predicted CKD-EPI (S/P/Bld) [Vol rate/Area] >60 >=60 mL/min/1.7 3m 2 [facility] Glucose [Mass/Vol] 106 mg/dL 74 - 106 mg/dL [facility] Potassium [Moles/Vol] 4.3 mmol/L 3.5 - 5.1 mmol/L [facility] Sodium [Moles/Vol] 146 mmol/L High 136 - 145 mmol/L [facility] TBH EGFR-NON AF JAPANESE >60 >=60 mL/min/1.7 3m 2 [facility] Urea nitrogen [Mass/Vol] 17 mg/dL 7.0 - 18.0 mg/dL [facility] Urea nitrogen/Creatinine [Mass ratio] 19.1 mg/mg [facility] ALL LIPID PROFILE (FASTING)o n 10-01-2024 CHOL HDL RATIO 1.9 [facility] Comment on above: 3.3 - 4.4 LOW RISK 4.4 - 7.1 AVERAGE RISK 7.1 - 11.0 MODERATE RISK >11.0 HIGH RISK Cholesterol [Mass/Vol] 113 mg/dL NINF - 200 mg/dL [facility] Cholesterol in HDL [Mass/Vol] 60 mg/dL 40 - 60 mg/dL [facility] Comment on above: > or =60 mg/dl - LOW CARDIOVASCULAR RISK <40 mg/dl - HIGH CARDIOVASCULAR RISK Magnesium [Mass/Vol] 41.4 mg/dL [facility] Comment on above: <100 mg/dl OPTIMAL 100-129 mg/dl NEAR OR ABOVE OPTIMAL 130-159 mg/dl BORDERLINE HIGH 160-189 mg/dl HIGH >190 mg/dl VERY HIGH Magnesium [Mass/Vol] 11.6 mg/dL [facility] Triglyceride [Mass/Vol] 58 mg/dL NINF - 150 mg/dL [facility] Ever 10-01-2024 ALT [Catalytic activity/Vol] 51 U/L 16 - 63 U/L [facility] Por[place]io 10-01-2024 AST [Catalytic activity/Vol] 46 U/L High 15 - 37 U/L [facility] No Panel Informationon 10-01 Interpretation and review of laboratory results Abnormal [facility] ALL CBC WITH AUTO DIFFon Erythrocyte distribution width (RBC) [Ratio] 13.8 % 11.0 - 15.0 % [facility] Hematocrit (Bld) [Volume fraction] 37.5 % Low 42.0 - 54.0 % [facility] Hemoglobin (Bld) [Mass/Vol] 12.6 g/dL Low 14.0 - 18.0 g/dL [facility] Interpretation and review of laboratory results Abnormal [facility] MCH (RBC) [Entitic mass] 31.2 pg 25.9 - 34.0 pg [facility] MCHC (RBC) [Mass/Vol] 33.6 g/dL 29.9 - 35.2 g/dL [facility] MCV (RBC) [Entitic vol] 92.8 fL 80.0 - 94.0 fL [facility] Platelet mean volume (Bld) [Entitic vol] 10.6 fL 9.5 - 13.5 fL [facility] PLT 65 Low [facility] RBC 4.04 Low [facility] WBC 3.3 Low [facility] 36on 07-09-2024 36 This patient hasn't been seen since 2022 [facility] US abdomen limitedon 025 US abdomen limited [facility] [place] [address] Ultrasound Report Signed Patient: Pankaj Payne MR#: [id number] : 1945 Acct:[id number] Age/Sex: 78 / M ADM Date: 05/21/24 Loc: Room: Type: [facility] Attending Dr: Mick Branch MD Ordering Provider: [...] Claros Jr., D.O.05/21/2024 10:23 AM Dictation Location: [place] [address] Tech: Lizzy Llanes Transcribed By: USMAN 05/21/24 1023 Dictated By: Kartik Claros Jr, DO 05/21/24 1022 Signed By: 05/21/24 1023 Normal [facility] AFP Tumor Marker, Serumon AFP Tumor Marker, Serum 2.5 ng/mL Normal 0.0-8.4 [facility] Comment on above: Result Comment: [employer] Electrochemiluminescence Immunoassay (ECLIA) Values obtained with different assay methods or kits cannot be used interchangeably. Results cannot be interpreted as absolute evidence of the presence or absence of malignant disease. This test is not interpretable in females. Performed at: [address] [id number] [employer] Verification Engineer: Charlie Klein PhD, Phone: [phone] PERFORMED BY: [place] [address] PATHOLOGIST PRISON GUARD LUCIUS IRELAND M.D. Performed By: #### A FPTM #### [facility] , #### PSAS, TSH3 wRFLX, CMP, PT, LIPID #### [address] Alanine aminotransferase [En zymatic activity/volume] in Serum or PlasmaOrdered By: Mick Branch on 04-30-2024 ALT [Catalytic activity/Vol] Alanine aminotransferase [Enzymatic activity/volume] in Serum or Plasma [facility] Albumin [Mass/volume] in Ser um or Plasma by Bromocresol green (BCG) dye binding methoOrdered By: Mick Branch on 04-30-2024 Albumin BCG dye [Mass/Vol] Albumin [Mass/volume] in Serum or Plasma by Bromocresol green (BCG) dye binding metho 3.5-5.7 [facility] Alkaline phosphatase [Enzyma tic activity/volume] in Serum or PlasmaOrdered By: Mick Branch on 04-30-2024 ALP [Catalytic activity/Vol] Alkaline phosphatase [Enzymatic activity/volume] in Serum or Plasma High 34-104 [facility] Aspartate aminotransferase [ Enzymatic activity/volume] in Serum or PlasmaOrdered By: Mick Branch on 04-30-2024 AST [Catalytic activity/Vol] Aspartate aminotransferase [Enzymatic activity/volume] in Serum or Plasma High 13-39 [facility] Bilirubin.total [Mass/volume ] in Serum or PlasmaOrdered By: Mick Branch on 04-30-2024 Bilirubin [Mass/Vol] Bilirubin.total [Mass/volume] in Serum or Plasma 0.3-1.0 [facility] Calcium [Mass/volume] in Ser um or PlasmaOrdered By: Mick Branch on 04-30-2024 Calcium [Mass/Vol] Calcium [Mass/volume ] in Serum or Plasma 8.6-10.3 [facility] Carbon dioxide, total [Moles /volume] in Serum or PlasmaOrdered By: Mick Branch on 04-30-2024 CO2 [Moles/Vol] Carbon dioxide, tota l [Moles/volume] in Serum or Plasma High 21.0-31.0 [facility] Chloride [Moles/volume] in S lilly or PlasmaOrdered By: Mick Branch on 04-30-2024 Chloride [Moles/Vol] Chloride [Moles/vol ume] in Serum or Plasma High 98-107 [facility] Cholesterol [Mass/volume] in Serum or PlasmaOrdered By: Mick Branch on 04-30-2024 Cholesterol [Mass/Vol] Cholesterol [Mass /volume] in Serum or Plasma 140-200 [facility] Comment on above: Chol less than 200 m g/dl low riskChol 201-239 mg/dl borderline riskChol 240 mg/dl and greater high risk Cholesterol in HDL [Mass/vol ume] in Serum or PlasmaOrdered By: Mick Branch on 04-30-2024 Cholesterol in HDL [Mass/Vol] Serum or plasma high density lipoprotein (HDL) cholesterol measurement 23-92 [facility] Comment on above: HDL CHOL ATP-III CLA SSIFICATION Cardiovascular RiskHDL > or equal to 60 mg/dL LOWHDL < 40 mg/dL HIGH Cholesterol in LDL Calc [Mas s/Vol]Ordered By: Mick Branch on 04-30-2024 Cholesterol in LDL [Mass/Vol] Cholesterol in LDL [Mass/volume] in Serum or Plasma by calculation 0-100 [facility] Comment on above: LDL ATP III CLASSIFI CATIONLDL less than 100 mg/dL OptimalLDL 100-129 mg/dL Near or above optimalLDL 130-159 mg/dL Borderline highLDL 160-189 mg/dL HighLDL greater than 189 mg/dL Very high Cholesterol in VLDL Calc [Ma ss/Vol]Ordered By: Mick Branch on 04-30-2024 Cholesterol in VLDL [Mass/Vol] Cholesterol in VLDL [Mass/volume] in Serum or Plasma by calculation [facility] Comprehensive Metabolic Pane ross 04-30-2024 Albumin [Mass/Vol] 3.5 g/dL Normal 3.5-5.7 [facility] Comment on above: Performed By: #### A FPTM #### [facility] , #### PSAS, TSH3 wRFLX, CMP, PT, LIPID #### [facility] [address] [place] [address] [place] Albumin/Globulin [Mass ratio] 1.3 {ratio} Normal [facility] Comment on above: Performed By: #### A FPTM #### [facility] , #### PSAS, TSH3 wRFLX, CMP, PT, LIPID #### [facility] [address] [place] [id number] [place] ALP [Catalytic activity/Vol] 122 U/L High 34-104 [facility] Comment on above: Performed By: #### A FPTM #### [facility] , #### PSAS, TSH3 wRFLX, CMP, PT, LIPID #### [facility] [address] [place] [id number] [place] ALT [Catalytic activity/Vol] 40 U/L Normal 7-52 [facility] Comment on above: Performed By: #### A FPTM #### [facility] , #### PSAS, TSH3 wRFLX, CMP, PT, LIPID #### [address] Anion gap [Moles/Vol] 4.9 mmol/L Low 6.0-15.0 [facility] Comment on above: Performed By: #### A FPTM #### [facility] , #### PSAS, TSH3 wRFLX, CMP, PT, LIPID #### [address] AST [Catalytic activity/Vol] 46 U/L High 13-39 [facility] Comment on above: Performed By: #### A FPTM #### [facility] , #### PSAS, TSH3 wRFLX, CMP, PT, LIPID #### [address] Bilirubin [Mass/Vol] 0.7 mg/dL Normal 0.3-1.0 [facility] Comment on above: Performed By: #### A FPTM #### [facility] , #### PSAS, TSH3 wRFLX, CMP, PT, LIPID #### [facility] [address] [place] [address] Calcium [Mass/Vol] 8.8 mg/dL Normal 8.6-10.3 [facility] Comment on above: Performed By: #### A FPTM #### [facility] , #### PSAS, TSH3 wRFLX, CMP, PT, LIPID #### [facility] [address] [place] [address] Chloride [Moles/Vol] 109 mmol/L High 98-107 [facility] Comment on above: Performed By: #### A FPTM #### [facility] , #### PSAS, TSH3 wRFLX, CMP, PT, LIPID #### [facility] [address] [place] [address] [place] CO2 [Moles/Vol] 31.4 mmol/L High 21.0-31.0 [facility] Comment on above: Performed By: #### A FPTM #### [facility] , #### PSAS, TSH3 wRFLX, CMP, PT, LIPID #### [facility] [address] [place] [address] Creatinine [Mass/Vol] 0.91 mg/dL Normal 0.70-1.30 [facility] Comment on above: Performed By: #### A FPTM #### [facility] , #### PSAS, TSH3 wRFLX, CMP, PT, LIPID #### [address] GFR/1.73 sq M.predicted MDRD (S/P/Bld) [Vol rate/Area] mL/min/{1.73_m2} Normal [facility] Comment on above: Performed By: #### A FPTM #### [facility] , #### PSAS, TSH3 wRFLX, CMP, PT, LIPID #### [address] Globulin (S) [Mass/Vol] 2.7 g/dL Normal [facility] Comment on above: Performed By: #### A FPTM #### [facility] , #### PSAS, TSH3 wRFLX, CMP, PT, LIPID #### [facility] [address] [place] [address] Glucose [Mass/Vol] 82 mg/dL Normal 70-100 [facility] Comment on above: Result Comment: [place] Glucose Reference Range is dependent on time and content of last meal. Glucose of more than 200 mg/dL in a nonstressed, ambulatory subject supports the diagnosis of Diabetes Mellitus. ADA recommended reference range Performed By: #### A FPTM #### [facility] , #### PSAS, TSH3 wRFLX, CMP, PT, LIPID #### [facility] [address] [place] [address] Potassium [Moles/Vol] 4.3 mmol/L Normal 3.5-5.1 [facility] Comment on above: Performed By: #### A FPTM #### [facility] , #### PSAS, TSH3 wRFLX, CMP, PT, LIPID #### [address] Protein [Mass/Vol] 6.2 g/dL Low 6.4-8.9 [facility] Comment on above: Performed By: #### A FPTM #### [facility] , #### PSAS, TSH3 wRFLX, CMP, PT, LIPID #### [address] Sodium [Moles/Vol] 141 mmol/L Normal 136-145 [facility] Comment on above: Performed By: #### A FPTM #### [facility] , #### PSAS, TSH3 wRFLX, CMP, PT, LIPID #### [address] Urea nitrogen [Mass/Vol] 18 mg/dL Normal 7-25 [facility] Comment on above: Performed By: #### A FPTM #### [facility] , #### PSAS, TSH3 wRFLX, CMP, PT, LIPID #### [address] Creatinine [Mass/volume] in Serum or PlasmaOrdered By: Mick Branch on 04-30-2024 Creatinine [Mass/Vol] Creatinine [Mass/v olume] in Serum or Plasma 0.70-1.30 [facility] Globulin Calc (S) [Mass/Vol] Ordered By: Mick Branch on 04-30-2024 Globulin (S) [Mass/Vol] Serum globulin measurement by calculation (mass/volume) [facility] Glucose [Mass/volume] in Ser um or PlasmaOrdered By: Mick Branch on 04-30-2024 Glucose [Mass/Vol] Glucose [Mass/volume ] in Serum or Plasma 70-100 [facility] Comment on above: ADA recommended [...] in Platelet poor plasma by Coagulation assay [facility] Comment on above: INR Therapeutic [...] [Mass/Vol] 142 mg/dL Normal 140-200 [facility] Comment on above: Result Comment: Chol less than 200 mg/dl low risk Chol 201-239 mg/dl borderline risk Chol 240 mg/dl and greater high risk Performed By: #### A FPTM #### [facility] , #### PSAS, TSH3 wRFLX, CMP, PT, LIPID #### [facility] [address] [place] [address] [place] Cholesterol in HDL [Mass/Vol] 42 mg/dL Normal 23-92 [facility] Comment on above: Result Comment: HDL CHOL ATP-III CLASSIFICATION Cardiovascular Risk HDL > or equal to 60 mg/dL LOW HDL < 40 mg/dL HIGH Performed By: #### A FPTM #### [facility] , #### PSAS, TSH3 wRFLX, CMP, PT, LIPID #### [facility] [address] [place] [id number] [place] Cholesterol.total/Chol esterol in HDL [Mass ratio] 3.4 {ratio} Normal <5.0 [facility] Comment on above: Performed By: #### A FPTM #### [facility] , #### PSAS, TSH3 wRFLX, CMP, PT, LIPID #### [address] LDL Cholesterol,Calculated 67 mg/dL Normal 0-100 [facility] Comment on above: Result Comment: LDL ATP III CLASSIFICATION LDL less than 100 mg/dL Optimal LDL 100-129 mg/dL Near or above optimal LDL 130-159 mg/dL Borderline high LDL 160-189 mg/dL High LDL greater than 189 mg/dL Very high Performed By: #### A FPTM #### [facility] , #### PSAS, TSH3 wRFLX, CMP, PT, LIPID #### [address] Triglyceride w/Reflex 166 mg/dL High 0-149 [facility] Comment on above: [...] PSAS, TSH3 wRFLX, CMP, PT, LIPID #### [address] VLDL CHOLESTEROL 33 mg/dL Normal [facility] Comment on above: Performed By: #### A FPTM #### [facility] , #### PSAS, TSH3 wRFLX, CMP, PT, LIPID #### [facility] [address] [place] [address] No Panel InformationOrdered By: Mick Branch on 04-30-2024 Estimated GFR (CKD-EPI) > 60.0 mL/Min [facility] Creatinine Clearance (Chem N/A [facility] PSA Screen (Yearly Only)on 0 04-30-2024 PSA Screen (Yearly Only) 0.600 ng/mL Normal 0.000-4.00 0 [facility] Comment on above: Result Comment: Seri al tumor marker results determined by assays using different manufacturers or methods may not be comparable. [facility] end polisher and method: [employer] DXI, CHEMILUMINESCENT IMMUNOASSAY. PERFORMED BY: [place] [address] PATHOLOGIST PRISON GUARD LUCIUS IRELAND M.D. Performed By: #### A FPTM #### [facility] , #### PSAS, TSH3 wRFLX, CMP, PT, LIPID #### [address] Potassium [Moles/volume] in Serum or PlasmaOrdered By: Mick Branch on 04-30-2024 Potassium [Moles/Vol] Potassium [Moles/v olume] in Serum or Plasma 3.5-5.1 [facility] Prostate specific Ag [Mass/v olume] in Serum or PlasmaOrdered By: Mick Branch on 04-30-2024 Prostate specific Ag [Mass/Vol] Prostate specific Ag [Mass/volume] in Serum or Plasma 0.000-4.00 0 [facility] Comment on above: Serial tumor marker results determined by assays using different manufacturers or methods may not be comparable.[facility] end polisher and method:[employer] DXI, CHEMILUMINESCENT IMMUNOASSAY. Protein [Mass/volume] in Ser um or PlasmaOrdered By: Mick Branch on 04-30-2024 Protein [Mass/Vol] Protein [Mass/volume ] in Serum or Plasma Low 6.4-8.9 [facility] Prothrombin Time INRon 04-30 INR Coag (PPP) [Relative time] 1.2 {INR} Normal [facility] Comment on above: [...] heart valves: 3 - 4.5 PERFORMED BY: [address] [place] [address] PATHOLOGIST PRISON GUARD LUCIUS IRELAND M.D. Performed By: #### A FPTM #### [facility] , #### PSAS, TSH3 wRFLX, CMP, PT, LIPID #### [facility] [address] [place] [id number] [facility] PT Coag (PPP) [Time] 13.8 s High 9.0-12.9 [facility] Comment on above: Result Comment: A he matocrit value greater than 55% may lead to inaccurate results in coagulation testing. Patients having hematocrit values >55% require a special collection tube for coagulation studies. Please contact the laboratory at [phone] for redraw instructions. Performed By: #### A FPTM #### [facility] , #### PSAS, TSH3 wRFLX, CMP, PT, LIPID #### [place] [id number] [facility] Prothrombin time (PT)Ordered By: Mick Branch on 04-30-2024 PT Coag (PPP) [Time] Prothrombin time (PT) High 9.0- 12.9 [facility] Comment on above: A hematocrit value g reater than 55% may lead to inaccurate results in coagulation testing. Patients having hematocrit values >55% require a special collection tube for coagulation studies. Please contact the laboratory at [phone] for redraw instructions. Serum or plasma albumin/glob ulin mass ratioOrdered By: Mick Branch on 04-30-2024 Albumin/Globulin [Mass ratio] Serum or plasma albumin/globulin mass ratio [facility] Serum or plasma [id number] protein tumor marker measurement (mass/volume)Ordered By: Mick Branch on 04-30-2024 AFP.tumor marker [Mass/Vol] Serum or plasma [id number] tumor marker measurement (mass/volume) 0.0-8.4 [facility] Comment on above: [employer] ectrochemiluminescence Immunoassay(ECLIA)Values obtained with different assay methods or kits cannotbe used interchangeably. Results cannot be interpreted asabsolute evidence of the presence or absence of malignantdisease.This test is not interpretable in females.Performed at: - [facility] [id number] Director: Charlie Klein PhD, Phone: [phone] Serum or plasma anion gap de terminationOrdered By: Mick Branch on 04-30-2024 Anion gap [Moles/Vol] Serum or plasma an ion gap determination Low 6.0-15.0 [facility] Serum or plasma total choles terol/high density lipoprotein (HDL) cholesterol mass ratOrdered By: Mick Branch on 04-30-2024 Cholesterol.total/Chol esterol in HDL [Mass ratio] Serum or plasma total cholesterol/high density lipoprotein (HDL) cholesterol mass rat <5.0 [facility] Sodium [Moles/volume] in Ser um or PlasmaOrdered By: Mick Branch on 04-30-2024 Sodium [Moles/Vol] Sodium [Moles/volume ] in Serum or Plasma 136-145 [facility] Thyroid Stim Hormone w/Rflxo n 04-30-2024 Thyroid Stim Hormone w/Rflx 3.07 u[iU]/mL Normal 0.45-5.33 [facility] Comment on above: Result Comment: PERF ORMED BY: [place] [address] PATHOLOGIST PRISON GUARD LUCIUS IRELAND M.D. Performed By: #### A FPTM #### [facility] , #### PSAS, TSH3 wRFLX, CMP, PT, LIPID #### [facility] [address] [place] [address] [place] Thyrotropin [Units/volume] i n Serum or PlasmaOrdered By: Mick Branch on 04-30-2024 TSH Qn Thyrotropin [Units/volume] in Serum or Plasma 0.45-5.33 [facility] Triglyceride [Mass/volume] i n Serum or PlasmaOrdered By: Mick Branch on 04-30-2024 Triglyceride [Mass/Vol] Triglyceride [Mass/volume] in Serum or Plasma High 0-149 [facility] Comment on above: TRIG ATP [...] nitrogen [Mass/volume] in Serum or Plasma 10-16 [facility] ALL CBC WITH AUTO DIFFon Erythrocyte distribution width (RBC) [Ratio] 13.6 % 11.0 - 15.0 % [facility] Hematocrit (Bld) [Volume fraction] 40 % Low 42.0 - 54.0 % [facility] Hemoglobin (Bld) [Mass/Vol] 13 g/dL Low 14.0 - 18.0 g/dL [facility] Interpretation and review of laboratory results Abnormal [facility] MCH (RBC) [Entitic mass] 31.6 pg 25.9 - 34.0 pg [facility] MCHC (RBC) [Mass/Vol] 32.5 g/dL 29.9 - 35.2 g/dL [facility] MCV (RBC) [Entitic vol] 97.1 fL High 80.0 - 94.0 fL [facility] Platelet mean volume (Bld) [Entitic vol] 11.1 fL 9.5 - 13.5 fL [facility] TBH PLT 84 Low [facility] TBH RBC 4.12 Low [facility]H WBC 4.9 [facility] ECG 12 Leadon 01-01-2024 Sinus bradycardia, P VC, sinus arrhythmia, anterolateral LA age-indeterminate, abnormal ECG [facility] Work Phone: [facility] Work Phone: ALL CBC WITH AUTO DIFFon Erythrocyte distribution width (RBC) [Ratio] 18.3 % High 11.0 - 15.0 % [facility] Hematocrit (Bld) [Volume fraction] 38.3 % Low 42.0 - 54.0 % [facility] Hemoglobin (Bld) [Mass/Vol] 12.2 g/dL Low 14.0 - 18.0 g/dL [facility] Interpretation and review of laboratory results Abnormal [facility] MCH (RBC) [Entitic mass] 29.5 pg 25.9 - 34.0 pg [facility] MCHC (RBC) [Mass/Vol] 31.9 g/dL 29.9 - 35.2 g/dL [facility] MCV (RBC) [Entitic vol] 92.5 fL 80.0 - 94.0 fL [facility] Platelet mean volume (Bld) [Entitic vol] 11.1 fL 9.5 - 13.5 fL [facility] TBH PLT 63 Low [facility] TB RBC 4.14 Low [facility] WBC 3.1 Low [facility] No Panel InformationOrdered By: Mick Branch on 10-23-2023 Miscellaneous Pathology Test See comment [facility] Comment on above: See report. Scanned copy available in EMR. Alanine aminotransferase [En zymatic activity/volume] in Serum or PlasmaOrdered By: Mick Branch on 09-17-2023 ALT [Catalytic activity/Vol] 43 U/L 7-52 [facility] Albumin [Mass/volume] in Ser um or Plasma by Bromocresol green (BCG) dye binding methoOrdered By: Mick Branch on 09-17-2023 Albumin BCG dye [Mass/Vol] 3.9 g/dL 3.5-5.7 [facility] Alkaline phosphatase [Enzyma tic activity/volume] in Serum or PlasmaOrdered By: Mick Branch on 09-17-2023 ALP [Catalytic activity/Vol] 138 U/L High 34-104 [facility] Anisocytosis LM Ql (Bld)Orde red By: Mick Branch on 09-17-2023 Anisocytosis Ql (Bld) Slight Fir [facility] Aspartate aminotransferase [ Enzymatic activity/volume] in Serum or PlasmaOrdered By: Mick Branch on 09-17-2023 AST [Catalytic activity/Vol] 49 U/L High 13-39 [facility] Band form neutrophils/100 WB C Manual cnt (Bld)Ordered By: Mick Branch on 09-17-2023 Band form neutrophils/100 WBC (Bld) 1 % 0-5 [facility] Basophils Auto (Bld) [#/Vol] Ordered By: Mick Branch on 09-17-2023 Basophils (Bld) [#/Vol] N/A [facility] Basophils/100 WBC Auto (Bld) Ordered By: Mick Branch on 09-17-2023 Basophils/100 WBC (Bld) N/A [facility] Bilirubin.total [Mass/volume ] in Serum or PlasmaOrdered By: Mick Branch on 09-17-2023 Bilirubin [Mass/Vol] 0.6 mg/dL 0.3-1.0 [facility] Calcium [Mass/volume] in Ser um or PlasmaOrdered By: Mick Branch on 09-17-2023 Calcium [Mass/Vol] 8.8 mg/dL 8.6-10.3 [facility] Carbon dioxide, total [Moles /volume] in Serum or PlasmaOrdered By: Mick Branch on 09-17-2023 CO2 [Moles/Vol] 27.5 mmol/L 21.0-31.0 [facility] Chloride [Moles/volume] in S lilly or PlasmaOrdered By: Mick Branch on 09-17-2023 Chloride [Moles/Vol] 111 mmol/L High 98-107 [facility] Creatinine [Mass/volume] in Serum or PlasmaOrdered By: Mick Branch on 09-17-2023 Creatinine [Mass/Vol] 0.94 mg/dL 0.70-1.30 [facility] Eosinophils Auto (Bld) [#/Vo l]Ordered By: Mick Branch on 09-17-2023 Eosinophils (Bld) [#/Vol] N/A [facility] Eosinophils/100 WBC Auto (Bl d)Ordered By: Mick Branch on 09-17-2023 Eosinophils/100 WBC (Bld) N/A [facility] Eosinophils/100 WBC Manual c nt (Bld)Ordered By: Mick Branch on 09-17-2023 Eosinophils/100 WBC (Bld) 4 % High 1-3 [facility] Erythrocyte distribution wid th Auto (RBC) [Ratio]Ordered By: Mick Branch on 09-17-2023 Erythrocyte distribution width (RBC) [Ratio] 17.4 % High 12.0-14.8 [facility] Ferritin [Mass/volume] in Se rum or PlasmaOrdered By: Mick Branch on 09-17-2023 Ferritin [Mass/Vol] 23.4 ng/mL Low 23.9-336.2 [facility] Globulin Calc (S) [Mass/Vol] Ordered By: Mick Branch on 09-17-2023 Globulin (S) [Mass/Vol] 2.7 g/dL [facility] Glucose [Mass/volume] in Ser um or PlasmaOrdered By: Mick Branch on 09-17-2023 Glucose [Mass/Vol] 78 mg/dL 70-100 [facility] Comment on above: ADA recommended refe rence rangeRandom Glucose Reference Range is dependent on time and content of last meal. Glucose of more than 200 mg/dL in a nonstressed, ambulatory subject supports the diagnosis of Diabetes Mellitus. Hematocrit Auto (Bld) [Volum e fraction]Ordered By: Mick Branch on 09-17-2023 Hematocrit (Bld) [Volume fraction] 37.4 % Low 38.8-50.0 [facility] Hemoglobin [Mass/volume] in BloodOrdered By: Mick Branch on 09-17-2023 Hemoglobin (Bld) [Mass/Vol] 12.1 g/dL Low 13.0-17.0 [facility] INR in Platelet poor plasma by Coagulation assayOrdered By: Mick Branch on 09-17-2023 INR Coag (PPP) [Relative time] 1.1 {INR} [facility] Comment on above: INR Therapeutic [...] on 09-17-2023 Iron [Mass/Vol] 52 ug/dL 50-212 [facility] Iron binding capacity [Mass/ volume] in Serum or PlasmaOrdered By: Mick Branch on 09-17-2023 Iron binding capacity [Mass/Vol] 496 ug/dL High 255-450 [facility] Iron saturation [Mass Fracti on] in Serum or PlasmaOrdered By: Mick Branch on 09-17-2023 Iron saturation [Mass fraction] 10.5 % Low 20-50 [facility] Leukocytes [#/volume] correc britt for nucleated erythrocytes in Blood by Automated counOrdered By: Mick Branch on 09-17-2023 WBC corrected for nucl RBC Auto (Bld) [#/Vol] 3.2 10*3/uL Low 4.1-10.5 [facility] Lymphocytes Auto (Bld) [#/Vo l]Ordered By: Mick Branch on 09-17-2023 Lymphocytes (Bld) [#/Vol] N/A [facility] Lymphocytes/100 WBC Auto (Bl d)Ordered By: Mick Branch on 09-17-2023 Lymphocytes/100 WBC (Bld) N/A [facility] Lymphocytes/100 WBC Manual c nt (Bld)Ordered By: Mick Branch on 09-17-2023 Lymphocytes/100 WBC (Bld) 25 % 18-42 [facility] MCH Auto (RBC) [Entitic mass ]Ordered By: Mick Branch on 09-17-2023 MCH (RBC) [Entitic mass] 27.4 pg Low 27.5-35.2 [facility] MCHC Auto (RBC) [Mass/Vol]Or dered By: Mick Branch on 09-17-2023 MCHC (RBC) [Mass/Vol] 32.2 g/dL Low 32.5-35.6 [facility] MCV Auto (RBC) [Entitic vol] Ordered By: Mick Branch on 09-17-2023 MCV (RBC) [Entitic vol] 85.0 fL 83.5-101 [facility] Macrocytes LM Ql (Bld)Ordere d By: Mick Branch on 09-17-2023 Macrocytes Ql (Bld) Slight [facility] Microcytes LM Ql (Bld)Ordere d By: Mick Branch on 09-17-2023 Microcytes Ql (Bld) Slight [facility] Monocytes Auto (Bld) [#/Vol] Ordered By: Mick Branch on 09-17-2023 Monocytes (Bld) [#/Vol] N/A [facility] Monocytes/100 WBC Auto (Bld) Ordered By: Mick Branch on 09-17-2023 Monocytes/100 WBC (Bld) N/A [facility] Monocytes/100 WBC Manual cnt (Bld)Ordered By: Mick Branch on 09-17-2023 Monocytes/100 WBC (Bld) 8 % 2-11 [facility] Neutrophils Auto (Bld) [#/Vo l]Ordered By: Mick Branch on 09-17-2023 Neutrophils (Bld) [#/Vol] N/A [facility] Neutrophils/100 WBC Auto (Bl d)Ordered By: Mick Branch on 09-17-2023 Neutrophils/100 WBC (Bld) N/A [facility] No Panel InformationOrdered By: Mick Branch on 09-17-2023 Estimated GFR (CKD-EPI) > 60.0 mL/Min [facility] Pharmacy Creatinine Clearance (Chem N/A [facility] Nucleated erythrocytes [Pres ence] in Blood by Automated countOrdered By: Mick Branch on 09-17-2023 Nucleated RBC Auto Ql (Bld) N/A [facility] Ovalocyte detectionOrdered B y: Mick Branch on 09-17-2023 Ovalocytes LM Ql (Bld) Slight [facility] Platelet adequacy [Presence] in Blood by Light microscopyOrdered By: Mick Branch on 09-17-2023 Platelets LM Ql (Bld) Decreased Normal [facility] Platelet mean volume Auto (B ld) [Entitic vol]Ordered By: Mick Branch on 09-17-2023 Platelet mean volume (Bld) [Entitic vol] 8.9 fL 6.6-10.1 [facility] Platelet morphology finding [Identifier] in BloodOrdered By: Mick Branch on 09-17-2023 Platelet morphology finding Nom (Bld) Normal Normal [facility] Platelets Auto (Bld) [#/Vol] Ordered By: Mick Branch on 09-17-2023 Platelets (Bld) [#/Vol] 112 10*3/uL Low 150-450 [facility] Poikilocytosis [Presence] in Blood by Light microscopyOrdered By: Mick Branch on 09-17-2023 Poikilocytosis LM Ql (Bld) Slight [facility] Potassium [Moles/volume] in Serum or PlasmaOrdered By: Mick Branch on 09-17-2023 Potassium [Moles/Vol] 4.3 mmol/L 3.5-5.1 [facility] Protein [Mass/volume] in Ser um or PlasmaOrdered By: Mick Branch on 09-17-2023 Protein [Mass/Vol] 6.6 g/dL 6.4-8.9 [facility] Prothrombin time (PT)Ordered By: Mick Branch on 09-17-2023 PT Coag (PPP) [Time] 13.1 s High 9.0-12.9 [facility] Comment on above: A hematocrit value g reater than 55% may lead to inaccurate results in coagulation testing. Patients having hematocrit values >55% require a special collection tube for coagulation studies. Please contact the laboratory at [phone] for redraw instructions. RBC Auto (Bld) [#/Vol]Ordere d By: Mick Branch on 09-17-2023 RBC (Bld) [#/Vol] 4.40 10*6/uL 3.90-5.60 [facility] RBC morphologyOrdered By: Kimberly Branch on 09-17-2023 RBC morphology finding Nom (Bld) N/A [facility] Segmented neutrophils/100 WB C Manual cnt (Bld)Ordered By: Mick Branch on 09-17-2023 Segmented neutrophils/100 WBC (Bld) 63 % 50-70 [facility] Serum or plasma albumin/glob ulin mass ratioOrdered By: Mick Branch on 09-17-2023 Albumin/Globulin [Mass ratio] 1.4 {ratio} [facility] Serum or plasma [id number] protein tumor marker measurement (mass/volume)Ordered By: Mick Branch on 09-17-2023 AFP.tumor marker [Mass/Vol] 3.0 ng/mL 0.0-8.4 [facility] Comment on above: [facility] El ectrochemiluminescence Immunoassay(ECLIA)Values obtained with different assay methods or kits cannotbe used interchangeably. Results cannot be interpreted asabsolute evidence of the presence or absence of malignantdisease.This test is not interpretable in females.Performed at: [facility] [id number] Director: Charlie Klein PhD, Phone: [phone] Serum or plasma anion gap de terminationOrdered By: Mick Branch on 09-17-2023 Anion gap [Moles/Vol] 8.8 mmol/L 6.0-15.0 [facility] Sodium [Moles/volume] in Ser um or PlasmaOrdered By: Mick Branch on 09-17-2023 Sodium [Moles/Vol] 143 mmol/L 136-145 [facility] Transferrin [Mass/volume] in Serum or PlasmaOrdered By: Mick Branch on 09-17-2023 Transferrin [Mass/Vol] 354 mg/dL 203-362 [facility] Urea nitrogen [Mass/volume] in Serum or PlasmaOrdered By: Mick Branch on 09-17-2023 Urea nitrogen [Mass/Vol] 20 mg/dL 7-25 [facility] WBC Auto (Bld) [#/Vol]Ordere d By: Mick Branch on 09-17-2023 WBC (Bld) [#/Vol] 3.4 10*3/uL Low 4.1-10.5 [facility] ECG 12 Leadon 06-20-2023 Sinus rhythm, rightw stephanie axis, bigeminal PVCs, anteroseptal infarction pattern age indeterminant, abnormal ECG [facility] Work Phone: Albumin [Mass/volume] in Ser um or PlasmaOrdered By: Zoila Castorena on 08-08-2022 Albumin [Mass/Vol] 3.0 g/dL 2.9-4.4 [facility] Folate [Mass/volume] in Seru m or PlasmaOrdered By: Zoila Castorena on 08-08-2022 Folate [Mass/Vol] 40.0 ng/mL >5.9 [facility] Comment on above: Folate reference ran ge: >5.9 ng/mlThe WHO technical consultation on folate and vitamin [id number] has determined that folate concentrations lessthan 4 ng/ml are considered deficient. Haptoglobin [Mass/volume] in Serum or PlasmaOrdered By: Zoila Castorena on 08-08-2022 Haptoglobin [Mass/Vol] 58 mg/dL 44-215 [facility] Lactate dehydrogenase [Enzym atic activity/volume] in Serum or Plasma by Lactate to pyOrdered By: Zoila Castorena on 08-08-2022 LDH Lactate to pyruvate reaction [Catalytic activity/Vol] 221 U/L 140-271 [facility] No Panel InformationOrdered By: Zoila Castorena on 08-08-2022 Protein Electrophoresis M-Jose Not observed g/dL Not Observed [facility] Protein Electrophoresis Note See comment . [facility] Comment on above: Protein electrophore sis scan will follow via computer,mail, or cigarette making examiner delivery.Performed at: [employer] [id number] Director: Charlie Klein PhD, Phone: [phone] Protein [Mass/volume] in Ser um or PlasmaOrdered By: Zoila Castorena on 08-08-2022 Protein [Mass/Vol] 6.0 g/dL 6.0-8.5 [facility] Serum globulin measurement ( mass/volume)Ordered By: Zoila Castorena on 08-08-2022 Globulin (S) [Mass/Vol] 3.0 g/dL 2.2-3.9 [facility] Serum or plasma albumin/glob ulin mass ratioOrdered By: Zoila Castorena on 08-08-2022 Albumin/Globulin [Mass ratio] 1.0 {ratio} 0.7-1.7 [facility] Serum or plasma alpha 1 glob ulin measurement by electrophoresis (mass/volume)Ordered By: Zoila Castorena on 08-08-2022 Alpha 1 globulin Elph [Mass/Vol] 0.2 g/dL 0.0-0.4 [facility] Serum or plasma alpha 2 glob ulin measurement by electrophoresis (mass/volume)Ordered By: Zoila Catsorena on 08-08-2022 Alpha 2 globulin Elph [Mass/Vol] 0.7 g/dL 0.4-1.0 [facility] Serum or plasma beta globuli n measurement by electrophoresis (mass/volume)Ordered By: Zoila Sanfordse on 08-08-2022 Beta globulin Elph [Mass/Vol] 1.2 g/dL 0.7-1.3 [facility] Serum or plasma gamma globul in measurement by electrophoresis (mass/volume)Ordered By: Zoila Sanfordse on 08-08-2022 Gamma globulin Elph [Mass/Vol] 1.0 g/dL 0.4-1.8 [facility] Vitamin B12 ser/plasOrdered By: Zoila Sanfordse on 08-08-2022 Cobalamin (Vitamin B12) [Mass/Vol] 481 pg/mL 180-914 [facility] ECHOCARDIO M/2D COMPLETEon 0 11-08-2021 ECHOCARDIO M/2D COMPLETE Patient: PANKAJ PAYNE Exam Date: 11/08/2021 : 1945 Gender:M Ordering : DR KARL MENON M.D. Admission #: [id number] Family : DR FRANTZ CONLEY M.D. Order #: [id number] CLICK HERE TO VIEW EXAM ECHOCARDIOGRAM REPORT [...] Menon M.D. on 11/08/2021 at 16:55 Normal [facility] Creatinine and Glomerular fi ltration rate.predicted panel (S/P/Bld)Ordered By: Frantz Conley on 10-10-2021 Creatinine [Mass/Vol] 1.11 mg/dL 0.64-1.27 [facility] Estimated glomerular filtrat ion rate (GFR) non- AmericanOrdered By: Frantz Conley on 10-10-2021 GFR/1.73 sq M.predicted among non-blacks MDRD (S/P/Bld) [Vol rate/Area] > 60 mL/Min [facility] No Panel InformationOrdered By: Frantz Conley on 10-10-2021 Estimated GFR () > 60 mL/Min [facility] Comment on above: GFR estimated refere nce range: According to KDOQI guidelines, <60 ml/min/1.73m2 is sufficient to diagnose a patient with chronic kidney disease. Pharmacy Creatinine Clearance (Chem N/A [facility] Serum or plasma urea nitroge n measurement (mass/volume)Ordered By: Frantz Conley on 10-10-2021 Urea nitrogen [Mass/Vol] 16 mg/dL 12-15 [facility] COVID-19 Positive/NegativeOr dered By: Mick Branch on 09-15-2021 SARS-CoV-2 (COVID-19) N gene GÓMEZ+probe Ql (Resp) Negative Negative [facility] Comment on above: Testing for SARS-CoV -2 by RT-PCR This test was developed and its performance characteristics determined by [employer] and validated at the [facility]. This test has not been [...] Basic Metab w/rfx MGon 08-17 (cont.) Normal [facility] Comment on above: Result Comment: Aver age GFR for 70 or more years old: 75 mL/min/1.73sq m Chronic Kidney Disease: <60 mL/min/1.73sq m Kidney failure: <15 mL/min/1.73sq m eGFR calculated using average adult body mass. Additional eGFR calculator available at: http://www.[employer].Encentuate/multiple_crcl_2012.htm Performed By: #### C DP, BMPX #### [address] [address] [employer] Verification Engineer: Tony Yanez MD Anion gap [Moles/Vol] 9 mmol/L Normal 9-17 [facility] Comment on above: Performed By: #### C DP, BMPX #### [address] [address] [employer] Engineer: Tony Yanez MD Calcium [Mass/Vol] 9.0 mg/dL Normal 8.6-10.4 [facility] Comment on above: Performed By: #### C DP, BMPX #### [address] [address] [employer] Engineer: Tony Yanez MD Chloride [Moles/Vol] 107 mmol/L Normal 98-107 [facility] Comment on above: Performed By: #### C DP, BMPX #### [address] [address] [employer] Engineer: Tony Yanez MD CO2 [Moles/Vol] 23 mmol/L Normal 20-31 [facility] Comment on above: Performed By: #### C DP, BMPX #### [address] [address] [employer] Engineer: Tony Yanez MD Creatinine [Mass/Vol] 0.83 mg/dL Normal 0.70-1.20 [facility] Comment on above: Performed By: #### C DP, BMPX #### [facility] [employer] [address] [place] [address] [employer] Engineer: Tony Yanez MD GFR, Amer >60 Normal >60 [facility] Comment on above: Performed By: #### C DP, BMPX #### [facility] [employer] [address] [place] [address] [employer] Engineer: Tony Yanez MD GFR,non Amer >60 Normal >60 [facility] Comment on above: Performed By: #### C DP, BMPX #### [address] [address] [employer] Engineer: Tony Yanez MD Glucose [Mass/Vol] 91 mg/dL Normal 70-99 [facility] Comment on above: Performed By: #### C DP, BMPX #### [facility] [employer] [address] [place] [address] [employer] Engineer: Tony Yanez MD Potassium [Moles/Vol] 4.3 mmol/L Normal 3.7-5.3 [facility] Comment on above: Performed By: #### C DP, BMPX #### [address] [address] [employer]ification Engineer: Tony Yanez MD Sodium [Moles/Vol] 139 mmol/L Normal 135-144 [facility] Comment on above: Performed By: #### C DP, BMPX #### [facility] [employer] [address] [place] [address] [employer] Engineer: Tony Yanez MD Urea nitrogen [Mass/Vol] 17 mg/dL Normal 8-23 [facility] Comment on above: Performed By: #### C DP, BMPX #### [facility] [employer] [address] [place] [address] [employer] Engineer: Tony Yanez MD Basic Metabolic Panel w/ Ref nehemias to MGon 08-17-2021 Anion gap [Moles/Vol] 9 mmol/L 9 - 17 mmol/L [facility] Calcium [Mass/Vol] 9.0 mg/dL 8.6 - 10. 4 mg/dL [facility] Chloride [Moles/Vol] 107 mmol/L 98 - 10 7 mmol/L [facility] CO2 [Moles/Vol] 23 mmol/L 20 - 31 mmol/L [facility] Creatinine [Mass/Vol] 0.83 mg/dL 0.70 - 1.20 mg/dL [facility] GFR >60 >60 mL/min [facility] GFR Non- >60 >60 mL/min [facility] GFR/1.73 sq M.predicted MDRD (S/P/Bld) [Vol rate/Area] [facility] Comment on above: Average GFR for 70 o r more years old: 75 mL/min/1.73sq m Chronic Kidney Disease: <60 mL/min/1.73sq m Kidney failure: <15 mL/min/1.73sq m eGFR calculated using average adult body mass. Additional eGFR calculator available at: http://www.[employer]/multiple_crcl_2011.htm Glucose [Mass/Vol] 91 mg/dL 70 - 99 mg/dL [facility] Potassium [Moles/Vol] 4.3 mmol/L 3.7 - 5.3 mmol/L [facility] Sodium [Moles/Vol] 139 mmol/L 135 - 144 mmol/L [facility] Urea nitrogen (BldV) [Mass/Vol] 17 mg/dL 8 - 23 mg/dL [facility] CBC with Auto Differentialon 08-17-2021 Absolute Eos # 0.11 [facility] Absolute Immature Granulocyte <0.03 [facility] Absolute Lymph # 1.10 [facility] Absolute [place] # 0.53 [facility] Basophils (Bld) [#/Vol] 0.03 10*3/uL [facility] Basophils/100 WBC (Bld) 1 % 0 - 2 % [facility] Eosinophils/100 WBC (Bld) 2 % 1 - 4 % [facility] Hematocrit (Bld) [Volume fraction] 36.2 % Low 40.7 - 50.3 % [facility] Hemoglobin.gastrointes tinal spec 1 Ql (Stl) 12.1 g/dL Low 13.0 - 17.0 g/dL [facility] Immature granulocytes/100 WBC (Bld) 0 % 0 [facility] Interpretation and review of laboratory results Abnormal [facility] Lymphocytes/100 WBC (Bld) 22 % Low 24 - 43 % [facility] MCH (RBC) [Entitic mass] 31.1 pg 25.2 - 33.5 pg [facility] MCHC (RBC) [Mass/Vol] 33.4 g/dL 28.4 - 34.8 g/dL [facility] MCV (RBC) [Entitic vol] 93.1 fL 82.6 - 102.9 fL [facility] Monocytes/100 WBC (Bld) 11 % 3 - 12 % [facility] NRBC Automated 0.0 0.0 per 100 WBC [facility] Platelet distribution width (Bld) [Ratio] 13.2 % 11.8 - 14.4 % [facility] Platelet mean volume (Bld) [Entitic vol] 11.2 fL 8.1 - 13.5 fL [facility] Platelets (Bld) [#/Vol] 94 10*3/uL Low [facility] RBC (Bld) [#/Vol] 3.89 10*6/uL Low 4.21 - 5.77 m/uL [facility] Segmented neutrophils/100 WBC (Bld) 64 % 36 - 65 % [facility] Segs Absolute 3.14 [facility] WBC (Bld) [#/Vol] 4.9 10*3/uL [facility] CBC with Diffon 08-17-2021 Abs. Basophil 0.03 k/uL Normal 0.00-0.20 [facility] Comment on above: Performed By: #### C ITA BMPX #### [address] [place] [address] [employer] Verification Engineer: Tony Yanez MD Abs.Imm.Granulocyte <0.03 Normal 0.00-0.30 [facility] Comment on above: Performed By: #### C ITA BMPX #### [address] [address] [employer] Verification Engineer: Tony Yanez MD Abs.Neutrophil (Seg) 3.14 k/uL Normal 1.50-8.10 [facility] Comment on above: Performed By: #### C DP, BMPX #### [address] [address] [employer] Verification Engineer: Tony Yanez MD Basophils/100 WBC (Bld) 1 % Normal 0-2 [facility] Comment on above: Performed By: #### C DP, BMPX #### [place] [address] [employer] Verification Engineer: Tony aYnez MD Eosinophils (Bld) [#/Vol] 0.11 10*3/uL Normal 0.00-0.44 [facility] Comment on above: Performed By: #### C DP, BMPX #### [address] [address] [employer] Verification Engineer: Tony Yanez MD Eosinophils/100 WBC (Bld) 2 % Normal 1-4 [facility] Comment on above: Performed By: #### C DP, BMPX #### [address] [address] [employer] Verification Engineer: Tony Yanez MD Erythrocyte distribution width (RBC) [Ratio] 13.2 % Normal 11.8-14.4 [facility] Comment on above: Performed By: #### C DP, BMPX #### [facility] [employer] [address] [place] [address] [employer] Verification Engineer: Tony Yanez MD Hematocrit (Bld) [Volume fraction] 36.2 % Low 40.7-50.3 [facility] Comment on above: Performed By: #### C DP, BMPX #### [facility] [employer] [address] [place] [address] [employer] Verification Engineer: Tony Yanez MD Hemoglobin (Bld) [Mass/Vol] 12.1 g/dL Low 13.0-17.0 [facility] Comment on above: Performed By: #### C DP, BMPX #### [address] [address] [employer]ification Engineer: Tony Yanez MD Immature granulocytes/100 WBC (Bld) 0 % Normal 0 [facility] Comment on above: Performed By: #### C DP, BMPX #### [address] [address] [employer] Verification Engineer: Tony Yanez MD Lymphocytes (Bld) [#/Vol] 1.10 10*3/uL Normal 1.10-3.70 [facility] Comment on above: Performed By: #### C DP, BMPX #### [address] [address] [employer] Verification Engineer: Tony Yanez MD Lymphocytes/100 WBC (Bld) 22 % Low 24-43 [facility] Comment on above: Performed By: #### C DP, BMPX #### [address] [address] [employer] Verification Engineer: Tony Yanez MD MCH (RBC) [Entitic mass] 31.1 pg Normal 25.2-33.5 [facility] Comment on above: Performed By: #### C DP, BMPX #### [address] [address] [employer] Verification Engineer: Tony Yanez MD MCHC (RBC) [Mass/Vol] 33.4 g/dL Normal 28.4-34.8 [facility] Comment on above: Performed By: #### C DP, BMPX #### [address] [address] [employer] Verification Engineer: Tony Yanez MD MCV (RBC) [Entitic vol] 93.1 fL Normal 82.6-102.9 [facility] Comment on above: Performed By: #### C DP, BMPX #### [address] [address] [employer] Software Verification Engineer: Tony Yanez MD Monocytes (Bld) [#/Vol] 0.53 10*3/uL Normal 0.10-1.20 [facility] Comment on above: Performed By: #### C DP, BMPX #### [address] [address] [employer] Verification Engineer: Tony Yanez MD Monocytes/100 WBC (Bld) 11 % Normal 3-12 [facility] Comment on above: Performed By: #### C DP, BMPX #### [place] [address] [employer] Verification Engineer: Tony Yanez MD Neutrophil (Seg) 64 % Normal 36-65 [facility] Comment on above: Performed By: #### C DP, BMPX #### [address] [address] [employer] Software Verification Engineer: Tony Yanez MD NRBC Automated 0.0 per 100 WBC Normal 0.0 [facility] Comment on above: Performed By: #### C DP, BMPX #### [place] [address] [employer] Verification Engineer: Tony Yanez MD Platelet mean volume (Bld) [Entitic vol] 11.2 fL Normal 8.1-13.5 [facility] Comment on above: Performed By: #### C DP, BMPX #### [address] [address] [employer]ware Software Verification Engineer: Tony Yanez MD Platelets (Bld) [#/Vol] 94 10*3/uL Low 138-453 [facility] Comment on above: Performed By: #### C DP, BMPX #### [employer] [place] [address] [employer]ware Software Verification Engineer: Tony Yanez MD RBC (Bld) [#/Vol] 3.89 10*6/uL Low 4.21-5.77 [facility] Comment on above: Performed By: #### C DP, BMPX #### [facility] [address] [place] [address] [employer]ware Software Verification Engineer: Tony Yanez MD WBC (Bld) [#/Vol] 4.9 10*3/uL Normal 3.5-11.3 [facility] Comment on above: Performed By: #### C DP, BMPX #### [facility] [address] [place] [address] [employer]ware Software Verification Engineer: Tony Yanez MD CT FACIAL BONES WO [...] SYSTEM PROVIDED HISTORY: Impact with object riding technical instructor course developer TECHNOLOGIST PROVIDED HISTORY: Impact with object riding technical instructor course developer Decision Support Exception - unselect if not [...] Augustin Hodges MD 08/16/21 Final result Normal [facility] MRSA DNA Probe, Nasalon - MRSA, DNA, Nasal Negative NEGATIVE [facility] [...] for MRSA infections. Specimen Description .NASAL SWAB [facility] MRSA, DNA, Nasalon MRSA, DNA, Nasal Negative Normal NEG [facility] Comment on above: Result Comment: NEGA TIVE: MRSA DNA not detected by nucleic acid amplification. Results should be used as an adjunct to nosocomial control efforts to identify patients needing enhanced precautions. The test is not intended to identify patients with staphylococcal infections. Results should not be used to guide or monitor treatment for MRSA infections. Performed By: #### M RSANO #### [employer] [address] [place] [address] [id number] [employer] Software Verification Engineer: Tony Yanez MD Specimen Description .NASAL SWAB Normal [facility] Comment on above: Performed By: #### M RSANO #### [facility] [employer] [address] [place] [address] [id number] [employer]ware Software Verification Engineer: Tony Yanez MD CBC AUTO DIFFon 08-16-2021 BASO # 0.0 103/ul Normal 0.0-0.1 [facility] Comment on above: Performed By: #### C VDTBH #### [facility] [address] [address] [address] Natalya Arthur Basophils/100 WBC (Bld) 0.6 % Normal 0.2-2.0 [facility] Comment on above: Performed By: #### C VDTBH #### [facility] [address] [place] [address] Dr. Natalya Arthur EO # 0.1 103/ul Normal 0.0-0.7 [facility] Comment on above: Performed By: #### C VDTBH #### [facility] [address] [place] [address] Dr. Natalya Arthur Eosinophils/100 WBC (Bld) 1.9 % Normal 0.9-7.0 [facility] Comment on above: Performed By: #### C VDTBH #### [facility] [address] [place] [address] Dr. Natalya Arthur Erythrocyte distribution width (RBC) [Ratio] 13.1 % Normal 11.0-15.0 [facility] Comment on above: Performed By: #### C VDTBH #### [facility] [address] [place] [address] Dr. Natalya Arthur Hematocrit (Bld) [Volume fraction] 38.5 % Critically low 42.0-54.0 [facility] Comment on above: Performed By: #### C VDTBH #### [facility] [address] [place] [address] Dr. Natalya Arthur Hemoglobin (Bld) [Mass/Vol] 12.7 g/dL Critically low 14.0-18.0 [facility] Comment on above: Performed By: #### C VDTBH #### [facility] [address] [place] [address] Dr. Natalya Arthur IG # 0.03 10e3/ul Normal 0.00-0.03 [facility] Comment on above: Performed By: #### C VDTBH #### [facility] [address] [place] [address] Dr. Natalya Arthur IG % 0.6 % Critically high 0.0-0.5 [facility] Comment on above: Performed By: #### C VDTBH #### [facility] [address] [place] [address] Dr. Natalya Arthur LYMPH # 0.8 103/ul Critically low 1.2-3.8 [facility] Comment on above: Performed By: #### C VDTBH #### [facility] [address] [address] [address] Natalya Arthur Lymphocytes/100 WBC (Bld) 15.3 % Critically low 20.5-60.0 [facility] Comment on above: Performed By: #### C VDTBH #### [facility] [address] [address] [address] Natalya Arthur MANUAL DIFF REQ NO Normal [facility] Comment on above: Performed By: #### C VDTBH #### [facility] [address] [address] [address] Natalya Arthur MCH (RBC) [Entitic mass] 31.0 pg Normal 25.9-34.0 [facility] Comment on above: Performed By: #### C VDTBH #### [facility] [address] [place] [address] Dr. Natalya Arthur MCHC (RBC) [Mass/Vol] 33.0 g/dL Normal 29.9-35.2 [facility] Comment on above: Performed By: #### C VDTBH #### [facility] [address] [address] [address] Natalya Arthur MCV (RBC) [Entitic vol] 93.9 fL Normal 80.0-94.0 [facility] Comment on above: Performed By: #### C VDTBH #### [facility] [address] [place] [address] Dr. Natalya Arthur MONO # 0.4 103/ul Normal 0.3-0.8 [facility] Comment on above: Performed By: #### C VDTBH #### [facility] [address] [address] [address] Natalya Arthur Monocytes/100 WBC (Bld) 8.0 % Normal 1.7-12.0 [facility] Comment on above: Performed By: #### C VDTBH #### [facility] [address] [address] [address] Natalya Arthur NEUT # 3.8 103/ul Normal 1.4-6.5 [facility] Comment on above: Performed By: #### C VDTBH #### [facility] [address] [address] [address] Natalya Arthur Neutrophils/100 WBC (Bld) 73.6 % Normal 43.0-75.0 [facility] Comment on above: Performed By: #### C VDTBH #### [facility] [address] [address] [address] Natalya Arthur Platelet mean volume (Bld) [Entitic vol] 10.8 fL Normal 9.5-13.5 [facility] Comment on above: Performed By: #### C VDTBH #### [facility] [address] [place] [address] Dr. Natalya Arthur PLT 100 103/ul Critically low 150-450 [facility] Comment on above: Performed By: #### C VDTBH #### [facility] [address] [place] [address] Dr. Natalya Arthur RBC 4.10 106/ul Critically low 4.70-6.10 [facility] Comment on above: Performed By: #### C VDTBH #### [facility] [address] [place] [address] Dr. Natalya Arthur WBC 5.2 103/ul Normal 4.0-11.0 [facility] Comment on above: Performed By: #### C VDTBH #### [facility] [address] [place] [address] CSPINE WO CONon [...] moderate degenerative facet arthropathy. Electronically authenticated by: ARTHURMAGGY LÓPEZ Date: 2021-08-16 17:00 Normal [facility] CT FACIAL BONES WO CONTRASTo n 08-16-2021 No acute facial frac ture. Soft tissue swelling and ecchymosis of the left face and scalp. [facility] EXAMINATION: CT OF THE FACE WITHOUT [...] SYSTEM PROVIDED HISTORY: Impact with object riding technical instructor course developer TECHNOLOGIST PROVIDED HISTORY: Impact with object riding technical instructor course developer Decision Support Exception - unselect if not [...] focus of subcutaneous emphysema left periorbital region. [facility] Augustin Hodges MD - 08/16/2021 EXAMINATION: [...] SYSTEM PROVIDED HISTORY: Impact with object riding technical instructor course developer TECHNOLOGIST PROVIDED HISTORY: Impact with object riding technical instructor course developer Decision Support Exception - unselect if not [...] ecchymosis of the left face and scalp. [employer] Work Phone: CT FACIAL BONES WO CONTRASTO rdered By: Augustin Hodges on 08-16-2021 [employer] Work Phone: CT HEAD WO CONon 08-16-2021 [...] SUKH CROFT Date: 2021-08-16 15:37 Normal [facility] CT HEAD WO CONTRASTon 2021 CT [...] Hardeep Godwin MD 08/16/21 Final result Normal [facility] Minimal left frontal subarachnoid hemorrhage in 1 of the sulci. No evidence of extra-axial collections. Prominent left frontal and parietal scalp swelling/hemorrhage. The findings were sent to the Radiology Results Communication [facility] at 9:22 pm on 08/16/2021 to be communicated to a licensed caregiver. [facility] EXAMINATION: CT OF THE HEAD WITHOUT CONTRAST [...] TISSUES/SKULL: There is left frontoparietal scalp swelling/hemorrhage. [facility] Hardeep Godwin MD - 08/16/2021 EXAMINATION: CT [...] to be communicated to a licensed caregiver. [employer] Phone: CT HEAD WO CONTRASTOrdered B y: Hardeep Godwin on 08-16-2021 [employer] Phone: Covid-19 PCR (CVDTB)on 07-24 SARS-CoV-2 (COVID-19) RNA GÓMEZ+probe Ql (Unsp spec) Not detected Normal NOT DETECTED [facility] Comment on above: Result Comment: This test is not yet approved or cleared by the [place] FDA. When there are no FDA-approved or cleared tests available, and other criteria are met, FDA can make tests available under an emergency access mechanism called an Emergency Use Authorization (EUA). The EUA for this test is supported by the [place] of Health and Human Service's (HHS's) declaration [...] consistent with SARS-CoV-2. Performed By: #### C [facility] #### [facility] [address] [place] [address] Dr. Natalya Arthur No Panel Informationon 08-16 Radiology Study observation (narrative) CAROL ANN DOWNS [employer] Work Phone: PROF CHEM 8 (BAS METB)on Anion gap [Moles/Vol] 13.6 mmol/L Normal [facility] Comment on above: Performed By: #### C VDTBH #### [facility] [address] [place] [address] Dr. Natalya Arthur Calcium [Mass/Vol] 9.0 mg/dL Normal 8.5-10.1 [facility] Comment on above: Performed By: #### C VDTBH #### [facility] [address] [place] [address] Dr. Natalya Arthur Chloride [Moles/Vol] 107 mmol/L Normal 98-107 [facility] Comment on above: Performed By: #### C VDTBH #### [facility] [address] [place] [address] Dr. Natalya Arthur CO2 [Moles/Vol] 24.4 mmol/L Normal 21.0-32.0 [facility] Comment on above: Performed By: #### C VDTBH #### [facility] [address] [place] [address] Dr. Natalya Arthur Creatinine [Mass/Vol] 1.09 mg/dL Normal 0.70-1.30 [facility] Comment on above: Performed By: #### C VDTBH #### [facility] [address] [place] [address] Dr. Natalya Arthur EGFR-AF JAPANESE >60 Normal >=60 [facility] Comment on above: Performed By: #### C VDTBH #### [facility] [address] [place] [address] Dr. Natalya Arthur EGFR-NON AF JAPANESE >60 Normal >=60 [facility] Comment on above: Performed By: #### C VDTBH #### [facility] [address] [place] [address] Dr. Natalya Arthur Glucose [Mass/Vol] 111 mg/dL Critically high 74-106 [facility] Comment on above: Performed By: #### C VDTBH #### [facility] [address] [place] [address] Dr. Natalya Arthur Potassium [Moles/Vol] 4.0 mmol/L Normal 3.5-5.1 [facility] Comment on above: Performed By: #### C VDTBH #### [facility] [address] [place] [address] Dr. Natalya Arthur Sodium [Moles/Vol] 141 mmol/L Normal 136-145 [facility] Comment on above: Performed By: #### C VDTBH #### [facility] [address] [place] [address] Dr. Natalya Arthur Urea nitrogen [Mass/Vol] 21.0 mg/dL Critically high 7.0-18.0 [facility] Comment on above: Performed By: #### C VDTBH #### [facility] [address] [place] [address] Dr. Natalya Arthur Urea nitrogen/Creatinine [Mass ratio] 19.3 mg/mg Normal [facility] Comment on above: Performed By: #### C VDTBH #### [facility] [address] [place] [address] Dr. Natalya Arthur PROTIMEon 08-16-2021 INR Coag (PPP) [Relative time] 1.12 {INR} Normal [facility] Comment on above: Performed By: #### F ETIBC, FERR #### [facility] [address] [place] [address] Dr. Natalya Arthur INR GUIDELINES SEE BELOW Normal [facility] Comment on above: Result Comment: REFUGIO RED INR: 2.0 - 3.0 CONDITIONS NOT LISTED BELOW 2.5 - 3.5 FOR PROSTHETIC HEART VALVE REPLACEMENT 2.5 - 3.5 RECURRENT THROMBOSIS Performed By: #### F ETIBC, FERR #### [facility] [address] [place] [address] Dr. Natalya Arthur PT Coag (PPP) [Time] 12.0 s Critically high 9.0-11.6 [facility] Comment on above: Performed By: #### F ETIBC, FERR #### [facility] [address] [place] [address] Dr. Natalya Arthur PTTon 08-16-2021 aPTT Coag (Bld) [Time] 28.6 s Normal 22.3-36.2 [facility] Comment on above: Performed By: #### F ETIBC, FERR #### [facility] [address] [place] [address] Dr. Natalya Arthur [id number] 2021 Fkhmo-0-Jinqptfkexa, Serum 125 mg/dL Normal 101-187 [facility] Comment on above: Performed By: #### A LPHA-1 #### [facility] [address] [place] [address] Dr. Natalya Arthur BETHANIE EIA W/REFLEX 5 BIOMARKER Son 07-13-2021 BETHANIE Direct Negative Normal Negative [facility] Comment on above: Performed By: #### C VDTBH #### [facility] [address] [place] [address] Dr. Natalya Arthur CERULOPLASMINon 07-13-2021 Ceruloplasmin 19.0 mg/dL Normal 16.0-31.[address] [facility] Comment on above: Performed By: #### C EUROPL #### [facility] [address] [place] [address] Dr. Natalya Arthur SMOOTH MUSCLE ANTIBODYon Actin (Smooth Muscle) Antibody 25 Units Critically high 0-19 [facility] Comment on above: Result Comment: Nega tive 0 - 19 Weak positive 20 - 30 Moderate to strong positive >30 . Actin Antibodies are found in 52-85% of patients with autoimmune hepatitis or chronic active hepatitis and in 22% of patients with primary biliary cirrhosis. Performed By: #### C VDTBH #### [facility] [address] [place] [address] Dr. Natalya Arthur CBC AUTO DIFFon 07-12-2021 BASO # 0.0 103/ul Normal 0.0-0.1 [facility] Comment on above: Performed By: #### F ETIBC, FERR #### [facility] [address] [place] [address] Dr. Natalya Arthur Basophils/100 WBC (Bld) 0.4 % Normal 0.2-2.0 [facility] Comment on above: Performed By: #### F ETIBC, FERR #### [facility] [address] [place] [address] Dr. Natalya Arthur EO # 0.2 103/ul Normal 0.0-0.7 [facility] Comment on above: Performed By: #### F ETIBC, FERR #### [facility] [address] [place] [address] Dr. Natalya Arthur Eosinophils/100 WBC (Bld) 4.0 % Normal 0.9-7.0 [facility] Comment on above: Performed By: #### F ETIBC, FERR #### [facility] [address] [place] [address] Dr. Natalya Arthur Erythrocyte distribution width (RBC) [Ratio] 13.8 % Normal 11.0-15.0 [facility] Comment on above: Performed By: #### F ETIBC, FERR #### [facility] [address] [place] [address] Dr. Natalya Arthur Hematocrit (Bld) [Volume fraction] 41.5 % Critically low 42.0-54.0 [facility] Comment on above: Performed By: #### F ETIBC, FERR #### [facility] [address] [place] [address] Dr. Natalya Arthur Hemoglobin (Bld) [Mass/Vol] 13.2 g/dL Critically low 14.0-18.0 [facility] Comment on above: Performed By: #### F ETIBC, FERR #### [facility] [address] [place] [address] Dr. Natalya Arthur IG # 0.02 10e3/ul Normal 0.00-0.03 [facility] Comment on above: Performed By: #### F ETIBC, FERR #### [facility] [address] [place] [address] Dr. Natalya Arthur IG % 0.4 % Normal 0.0-0.5 [facility] Comment on above: Performed By: #### F ETIBC, FERR #### [facility] [address] [place] [address] Dr. Natalya Arthur LYMPH # 0.8 103/ul Critically low 1.2-3.8 [facility] Comment on above: Performed By: #### F ETIBC, FERR #### [facility] [address] [place] [address] Dr. Natalya Arthur Lymphocytes/100 WBC (Bld) 17.0 % Critically low 20.5-60.0 [facility] Comment on above: Performed By: #### F ETIBC, FERR #### [facility] [address] [place] [address] Dr. Natalya Arthur MANUAL DIFF REQ NO Normal [facility] Comment on above: Performed By: #### F ETIBC, FERR #### [facility] [address] [place] [address] Dr. Natalya Arthur MCH (RBC) [Entitic mass] 30.9 pg Normal 25.9-34.0 [facility] Comment on above: Performed By: #### F ETIBC, FERR #### [facility] [address] [place] [address] Dr. Natalya Arthur MCHC (RBC) [Mass/Vol] 31.8 g/dL Normal 29.9-35.2 [facility] Comment on above: Performed By: #### F ETIBC, FERR #### [facility] [address] [place] [address] Dr. Natalya Arthur MCV (RBC) [Entitic vol] 97.2 fL Critically high 80.0-94.0 [facility] Comment on above: Performed By: #### F ETIBC, FERR #### [facility] [address] [place] [address] Dr. Natalya Arthur MONO # 0.5 103/ul Normal 0.3-0.8 [facility] Comment on above: Performed By: #### F ETIBC, FERR #### [facility] [address] [place] [address] Dr. Natalya Arthur Monocytes/100 WBC (Bld) 10.5 % Normal 1.7-12.0 [facility] Comment on above: Performed By: #### F ETIBC, FERR #### [facility] [address] [place] [address] Dr. Natalya Arthur NEUT # 3.2 103/ul Normal 1.4-6.5 [facility] Comment on above: Performed By: #### F ETIBC, FERR #### [facility] [address] [place] [address] Dr. Natalya Arthur Neutrophils/100 WBC (Bld) 67.7 % Normal 43.0-75.0 [facility] Comment on above: Performed By: #### F ETIBC, FERR #### [facility] [address] [place] [address] Dr. Natalya Arthur Platelet mean volume (Bld) [Entitic vol] 10.7 fL Normal 9.5-13.5 [facility] Comment on above: Performed By: #### F ETIBC, FERR #### [facility] [address] [place] [address] Dr. Natalya Arthur PLT 106 103/ul Critically low 150-450 [facility] Comment on above: Result Comment: smea r reviewed Performed By: #### F ETIBC, FERR #### [facility] [address] [place] [address] Dr. Natalya Arthur RBC 4.27 106/ul Critically low 4.70-6.10 [facility] Comment on above: Performed By: #### F ETIBC, FERR #### [facility] [address] [place] [address] Dr. Natalya Arthur WBC 4.8 103/ul Normal 4.0-11.0 [facility] Comment on above: Performed By: #### F ETIBC, FERR #### [facility] [address] [place] [address] Dr. Natalya Arthur FERRITINon 07-12-2021 Ferritin [Mass/Vol] 94.0 ng/mL Normal 17.9-464.0 [facility] Comment on above: Performed By: #### F ETIBC, FERR #### [facility] [address] [place] [address] Dr. Natalya Arthur IRON AND TIBCon 07-12-2021 % SATURATION 26.8 % Normal [facility] Comment on above: Performed By: #### F ETIBC, FERR #### [facility] [address] [place] [address] Dr. Natalya Arthur Iron [Mass/Vol] 106.0 ug/dL Normal 49.0-181.0 [facility] Comment on above: Performed By: #### F ETIBC, FERR #### [facility] [address] [place] [address] Dr. Natalya Arthur TIBC DIRECT 395.0 ug/dL Normal 261.0-497. 0 [facility] Comment on above: Performed By: #### F ETIBC, FERR #### [facility] [address] [place] [address] Dr. Natalya Arthur LIPID PROFILEon 07-12-2021 CHOL-HDL RATIO NORM SEE BELOW Normal [facility] Comment on above: Result Comment: 3.3 - 4.4 LOW RISK 4.4 - 7.1 AVERAGE RISK 7.1 - 11.0 MODERATE RISK >11.0 HIGH RISK Performed By: #### L IVER, LIPID #### [facility] [address] [place] [address] Dr. Natalya Arthur Cholesterol [Mass/Vol] 139 mg/dL Normal <=200 Th [facility] Comment on above: Performed By: #### L IVER, LIPID #### [facility] [address] [place] [address] Dr. Natalya Arthur Cholesterol in HDL [Mass/Vol] 58 mg/dL Normal 40-60 [facility] Comment on above: Performed By: #### L IVER, LIPID #### [facility] [address] [place] [address] Dr. Natalya Arthur Cholesterol in LDL [Mass/Vol] 58.8 mg/dL Normal [facility] Comment on above: Performed By: #### L IVER, LIPID #### [facility] [address] [place] [address] Dr. Natalya Arthur Cholesterol.total/Chol esterol in HDL [Mass ratio] 2.4 {ratio} Normal [facility] Comment on above: Performed By: #### L IVER, LIPID #### [facility] [facility] [address] [address] [address] Natalya Arthur HDL NORMAL > or = 60 mg/dl - LO W CARDIOVASCULAR RISK <40 mg/dl - HIGH CARDIOVASCULAR RISK Normal [facility] Comment on above: Performed By: #### L IVER, LIPID #### [facility] [address] [address] [address] Natalya Arthur LDL CALC NORMAL SEE BELOW Normal [facility] Comment on above: Result Comment: <100 mg/dl OPTIMAL 100 - 129 mg/dl NEAR OR ABOVE OPTIMAL 130 - 159 mg/dl BORDERLINE HIGH 160 - 189 mg/dl HIGH >190 mg/dl VERY HIGH Performed By: #### L IVER, LIPID #### [facility] [address] [address] [address] Natalya Arthur Triglyceride [Mass/Vol] 111 mg/dL Normal <=150 [facility] Comment on above: Performed By: #### L IVER, LIPID #### [facility] [address] [address] [address] Natalya Arthur VLDL CALC 22.2 mg/dL Normal [facility] Comment on above: Performed By: #### L IVER, LIPID #### [facility] [address] [address] [address] Natalya Arthur LIVER PROFILEon 07-12-2021 Albumin [Mass/Vol] 3.4 g/dL Normal 3.4-5.0 [facility] Comment on above: Performed By: #### L IVER, LIPID #### [facility] [address] [address] [address] Natalya Arthur Albumin/Globulin [Mass ratio] 0.9 {ratio} Normal [facility] Comment on above: Performed By: #### L IVER, LIPID #### [facility] [address] [address] [address] Natalya Arthur ALP [Catalytic activity/Vol] 129 U/L Critically high 46-116 [facility] Comment on above: Performed By: #### L IVER, LIPID #### [facility] [address] [address] [address] Natalya Arthur ALT [Catalytic activity/Vol] 72 U/L Critically high 16-63 [facility] Comment on above: Performed By: #### L IVER, LIPID #### [facility] [address] [address] [address] Natalya Arthur AST [Catalytic activity/Vol] 57 U/L Critically high 15-37 [facility] Comment on above: Performed By: #### L IVER, LIPID #### [facility] [address] [address] [address] Natalya Arthur BILI, CONJUGATED 0.2 mg/dL Normal 0.0-0.3 [facility] Comment on above: Performed By: #### L IVER, LIPID #### [facility] [address] [address] [address] Natalya Arthur Bilirubin [Mass/Vol] 0.6 mg/dL Normal 0.2-1.3 [facility] Comment on above: Performed By: #### L IVER, LIPID #### [facility] [address] [address] [address] Natalya Arthur Globulin (S) [Mass/Vol] 3.9 g/dL Normal [facility] Comment on above: Performed By: #### L IVER, LIPID #### [facility] [address] [address] [address] Natalya Arthur Protein [Mass/Vol] 7.3 g/dL Normal 6.1-8.2 [facility] Comment on above: Performed By: #### L IVER, LIPID #### [facility] [address] [address] [address] Natalya Arthur PROTIMEon 07-12-2021 INR Coag (PPP) [Relative time] 1.10 {INR} Normal [facility] Comment on above: Performed By: #### F ETIBC, FERR #### [facility] [address] [address] [address] Natalya Arthur INR GUIDELINES SEE BELOW Normal [facility] Comment on above: Result Comment: REFUGIO RED INR: 2.0 - 3.0 CONDITIONS NOT LISTED BELOW 2.5 - 3.5 FOR PROSTHETIC HEART VALVE REPLACEMENT 2.5 - 3.5 RECURRENT THROMBOSIS Performed By: #### F TONI, FERR #### [facility] [address] [place], [place] [address] Dr. Natalya Arthur PT Coag (PPP) [Time] 11.8 s Critically high 9.0-11.6 [facility] Comment on above: Performed By: #### F TONI, FERR #### [facility] [address] [place], [place] [address] Dr. Natalya Arthur Comprehensive Metabolic Pane ross 06-07-2021 Albumin [Mass/Vol] 3.9 g/dL Normal 3.6-5.1 [facility] Comment on above: Performed By: #### C MP #### [facility] [address] [place], [place] [id number] Albumin/Globulin [Mass ratio] 1.4 {ratio} Normal 1.0-2.5 [facility] Comment on above: Performed By: #### C MP #### [facility] [address] [place], [place] [id number] ALP [Catalytic activity/Vol] 128 U/L Normal 40-129 [facility] Comment on above: Performed By: #### C MP #### [facility] [address] [place], [place] [id number] ALT [Catalytic activity/Vol] 45 U/L Normal 9-46 [facility] Comment on above: Result Comment: 02/22 Female reference range changed. Performed By: #### C MP #### [facility] [address] [place], [place] [id number] Anion gap [Moles/Vol] 15 mmol/L Normal 12-20 [facility] Comment on above: Result Comment: Effe ctive 03/30/2019 reference range changed. Performed By: #### C MP #### [facility] [address] [place], [place] [id number] AST [Catalytic activity/Vol] 49 U/L High 10-40 [facility] Comment on above: Performed By: #### C MP #### [facility] [address] [place], [place] [id number] Bilirubin [Mass/Vol] 0.36 mg/dL Normal 0.30-1.20 [facility] Comment on above: Performed By: #### C MP #### [facility] [address] [place], [place] [id number] BUN/CREA 15 Ratio Normal 6-22 [facility] Comment on above: Performed By: #### C MP #### [facility] [address] [place], [place] [id number] Calcium [Mass/Vol] 9.2 mg/dL Normal 8.6-10.2 [facility] Comment on above: Performed By: #### C MP #### [facility] [address] [place], [place] [id number] Chloride [Moles/Vol] 104 mmol/L Normal 98-107 [facility] Comment on above: Performed By: #### C MP #### [facility] [address] [place], [place] [id number] CO2 [Moles/Vol] 24 mmol/L Normal 20-31 [facility] Comment on above: Performed By: #### C MP #### [facility] [address] [place], [place] [id number] Creatinine [Mass/Vol] 1.0 mg/dL Normal 0.7-1.4 [facility] Comment on above: Performed By: #### C MP #### [facility] [address] [place], [place] [id number] eGFRAA 90 mL/min/1.73m2 Normal >60 [facility] Comment on above: Performed By: #### C MP #### [facility] [address] [place], [place] [id number] eGFRNAA 74 mL/min/1.73m2 Normal >60 [facility] Comment on above: Performed By: #### C MP #### [facility] [address] [place], [place] [id number] Globulin (S) [Mass/Vol] 2.7 g/dL Normal 1.9-3.7 [facility] Comment on above: Performed By: #### C MP #### [facility] [address] [place], [place] [id number] Glucose [Mass/Vol] 111 mg/dL High 65-99 Arias damon [facility] Comment on above: Result Comment: For FASTING Glucose --- ADA reference ranges: Normal 65-99 mg/dl Prediabetes 100-125 Diabetes >/= 126 Performed By: #### C MP #### [facility] [address] [place], [place] [id number] Potassium [Moles/Vol] 4.5 mmol/L Normal 3.5-5.5 [facility] Comment on above: Performed By: #### C MP #### [facility] [address] [place], [place] [id number] Protein [Mass/Vol] 6.6 g/dL Normal 6.1-8.1 [facility] Comment on above: Performed By: #### C MP #### [facility] [address] [place], [place] [id number] Sodium [Moles/Vol] 139 mmol/L Normal 135-146 [facility] Comment on above: Performed By: #### C MP #### [facility] [address] [place], [place] [id number] Urea nitrogen [Mass/Vol] 15 mg/dL Normal 7-25 [facility] Comment on above: Performed By: #### C MP #### [facility] [address] [place], [place] [id number] Q - HEPATITIS PANEL ABC GENE RAL WITH REFLEXon 06-07-2021 HEPATITIS A AB, TOTAL Non-Reactive Normal NON-RE ACTI VE [facility] Comment on above: Order Comment: [facility] performed at: [facility], [facility], [address] , [address] [place] [address], [place], [address], [employer]: Sd Sharma MD [facility] Date/Time: [facility] Results Received Date/Time: [facility] Reported Date/Time: Result Comment: For additional information, please refer to http://education.Kinesense/faq/REK939 (This link is being provided for informational/ educational purposes only.) Performed By: #### 6 [id number] #### [facility] [address] [place] [address] HEPATITIS B CORE AB TOTAL Non-Reactive Normal NON-REACTI VE [facility] Comment on above: Order Comment: [facility] performed at: [facility], [facility], [address] [facility], [address] [place] [address], [address] [place] [address], [employer]w: Sd Sharma MD [facility] Date/Time: [facility] Results Received Date/Time: [facility] Reported Date/Time: Performed By: #### 6 [id number] #### [facility] [address] [place] [address] HEPATITIS B SURFACE ANTIBODY QL Non-Reactive Normal NON-REACTI VE [facility] Comment on above: Order Comment: [facility] performed at: [employer], [facility], [address] , [address] [place] [address], [address] [place] [address], Top Screw: Sd Sharma MD [facility] Date/Time: [facility] Results Received Date/Time: [facility] Reported Date/Time: Performed By: #### 6 [id number] #### [facility] [address] [place] [address] HEPATITIS B SURFACE ANTIGEN Non-Reactive Normal NON-REACTI VE [facility] Comment on above: Order Comment: [facility] performed at: [employer] [facility], [address] , [address] [place] [address], [address] [place] [address], Top Screw: Sd Sharma MD [facility] Date/Time: [facility] Results Received Date/Time: [facility] Reported Date/Time: Performed By: #### 6 [id number] #### [facility] [address] [place] [address] HEPATITIS C ANTIBODY Non-Reactive Normal NON-AMANDA CTI VE [facility] Comment on above: Order Comment: [facility] performed at: [employer], [facility], [address] , [address] [place], [address], Top Screw: Sd Sharma MD [facility] Date/Time: [facility] Results Received Date/Time: [facility] Reported Date/Time: Performed By: #### 6 [id number] #### [facility] [address] [place] [address] SIGNAL TO CUT-OFF 0.02 Normal <1.00 [facility] Comment on above: Order Comment: [facility] performed at: [employer], [facility], [address] [facility], [address] [place], [address], Top Screw: Sd Sharma MD [facility] Date/Time: [facility] Results Received Date/Time: [facility] Reported Date/Time: Result Comment: HCV antibody was non-reactive. There is no laboratory evidence of HCV infection. In most cases, no further action is required. However, if recent HCV exposure is suspected, a test for HCV RNA (test code 67860) is suggested. For additional information please refer to http://education.Kinesense/faq/IYZ02z7 (This link is being provided for informational/ educational purposes only.) Performed By: #### 6 [id number] #### [facility] [address] [place] [address] Complete Blood Count with Au to Diffon 05-01-2021 Basophils (Bld) [#/Vol] 0.05 10*3/uL Normal 0.00-0.20 [facility] Comment on above: Performed By: #### C BCAD, CMP, VITD, TSH reflex FT4, LIPD #### [facility] [address] [place], [place] [id number] Basophils/100 WBC (Bld) 1.1 % Normal [facility] Comment on above: Performed By: #### C BCAD, CMP, VITD, TSH reflex FT4, LIPD #### [facility] [address] [place], [place] [id number] Eosinophils (Bld) [#/Vol] 0.29 10*3/uL Normal 0.02-0.50 [facility] Comment on above: Performed By: #### C BCAD, CMP, VITD, TSH reflex FT4, LIPD #### [facility] [address] [place], [place] [id number] Eosinophils/100 WBC (Bld) 6.3 % Normal [facility] Comment on above: Performed By: #### C BCAD, CMP, VITD, TSH reflex FT4, LIPD #### [facility] [address] [place], [place] [id number] Erythrocyte distribution width (RBC) [Ratio] 12.9 % Normal 11.0-15.0 [facility] Comment on above: Performed By: #### C BCAD, CMP, VITD, TSH reflex FT4, LIPD #### [facility] [address] [place], [place] [id number] Hematocrit (Bld) [Volume fraction] 40.4 % Normal 38.5-50.0 [facility] Comment on above: Performed By: #### C BCAD, CMP, VITD, TSH reflex FT4, LIPD #### [facility] [address] [place], [place] [id number] Hemoglobin (Bld) [Mass/Vol] 13.1 g/dL Normal 13.0-17.1 [facility] Comment on above: Performed By: #### C BCAD, CMP, VITD, TSH reflex FT4, LIPD #### [facility] [address] [place], [place] [id number] Lymphocytes (Bld) [#/Vol] 0.9 10*3/uL Normal 0.9-3.9 [facility] Comment on above: Performed By: #### C BCAD, CMP, VITD, TSH reflex FT4, LIPD #### [facility] [address], [place] [id number] Lymphocytes/100 WBC (Bld) 18.6 % Normal [facility] Comment on above: Performed By: #### C BCAD, CMP, VITD, TSH reflex FT4, LIPD #### [facility] [address], [place] [id number] MCH (RBC) [Entitic mass] 31.0 pg Normal 27.0-33.0 [facility] Comment on above: Performed By: #### C BCAD, CMP, VITD, TSH reflex FT4, LIPD #### [facility] [address], [place] [id number] MCHC (RBC) [Mass/Vol] 32.4 g/dL Normal 32.0-36.0 [facility] Comment on above: Performed By: #### C BCAD, CMP, VITD, TSH reflex FT4, LIPD #### [facility] [address], [place] [id number] MCV (RBC) [Entitic vol] 96 fL Normal 80-100 [facility] Comment on above: Performed By: #### C BCAD, CMP, VITD, TSH reflex FT4, LIPD #### [facility] [address], [place] [id number] Monocytes (Bld) [#/Vol] 0.4 10*3/uL Normal 0.2-0.9 [facility] Comment on above: Performed By: #### C BCAD, CMP, VITD, TSH reflex FT4, LIPD #### [facility] [address] [place], [place] [id number] Monocytes/100 WBC (Bld) 8.4 % Normal [facility] Comment on above: Performed By: #### C BCAD, CMP, VITD, TSH reflex FT4, LIPD #### [facility] [address], [place] [id number] Neutrophils (Bld) [#/Vol] 3.0 10*3/uL Normal 1.5-7.8 [facility] Comment on above: Performed By: #### C BCAD, CMP, VITD, TSH reflex FT4, LIPD #### [facility] [address], [place] [id number] Neutrophils/100 WBC (Bld) 65.4 % Normal [facility] Comment on above: Performed By: #### C BCAD, CMP, VITD, TSH reflex FT4, LIPD #### [facility] [address] [place], [place] [id number] Platelet mean volume (Bld) [Entitic vol] 10.20 fL Normal 7.50-12.50 [facility] Comment on above: Performed By: #### C BCAD, CMP, VITD, TSH reflex FT4, LIPD #### [facility] [address], [place] [id number] Platelets (Bld) [#/Vol] 141 10*3/uL Normal 140-400 [facility] Comment on above: Performed By: #### C BCAD, CMP, VITD, TSH reflex FT4, LIPD #### [facility] [address], [place] [id number] RBC (Bld) [#/Vol] 4.22 10*6/uL Normal 4.20-5.80 [facility] Comment on above: Performed By: #### C BCAD, CMP, VITD, TSH reflex FT4, LIPD #### [facility] [address], [place] [id number] RDW-SD 45.2 fL Normal 37.0-50.0 [facility] Comment on above: Performed By: #### C BCAD, CMP, VITD, TSH reflex FT4, LIPD #### [facility] [address], [place] [id number] WBC (Bld) [#/Vol] 4.6 10*3/uL Normal 3.8-11.0 [facility] Comment on above: Performed By: #### C BCAD, CMP, VITD, TSH reflex FT4, LIPD #### [facility] [address], [place] [id number] Comprehensive Metabolic Pane ross 05-01-2021 Albumin [Mass/Vol] 4.0 g/dL Normal 3.6-5.1 Arias damon [place] [facility] Comment on above: Performed By: #### C BCAD, CMP, VITD, TSH reflex FT4, LIPD #### [facility] [address], [place] [id number] Albumin/Globulin [Mass ratio] 1.5 {ratio} Normal 1.0-2.5 [place] [facility] Comment on above: Performed By: #### C BCAD, CMP, VITD, TSH reflex FT4, LIPD #### [facility] [address], [place] [id number] ALP [Catalytic activity/Vol] 140 U/L High 40-129 [facility] Comment on above: Performed By: #### C BCAD, CMP, VITD, TSH reflex FT4, LIPD #### [facility] [address], [place] [id number] ALT [Catalytic activity/Vol] 63 U/L High 9-46 [facility] Comment on above: Result Comment: 02/22 Female reference range changed. Performed By: #### C BCAD, CMP, VITD, TSH reflex FT4, LIPD #### [facility] [address], [place] [id number] Anion gap [Moles/Vol] 17 mmol/L Normal 12-20 [facility] Comment on above: Result Comment: Effe ctive 03/30/2019 reference range changed. Performed By: #### C BCAD, CMP, VITD, TSH reflex FT4, LIPD #### [facility] [address], [place] [id number] AST [Catalytic activity/Vol] 62 U/L High 10-40 [facility] Comment on above: Performed By: #### C BCAD, CMP, VITD, TSH reflex FT4, LIPD #### [facility] [address], [place] [id number] Bilirubin [Mass/Vol] 0.41 mg/dL Normal 0.30-1.20 [facility] Comment on above: Performed By: #### C BCAD, CMP, VITD, TSH reflex FT4, LIPD #### [facility] [address], [place] [id number] BUN/CREA 13 Ratio Normal 6-22 [facility] Comment on above: Performed By: #### C BCAD, CMP, VITD, TSH reflex FT4, LIPD #### [facility] [address] [facility] [place] [id number] Calcium [Mass/Vol] 9.5 mg/dL Normal 8.6-10.2 Arias damon [place] [facility] Comment on above: Performed By: #### C BCAD, CMP, VITD, TSH reflex FT4, LIPD #### [facility] [address], [place] [id number] Chloride [Moles/Vol] 106 mmol/L Normal 98-107 [facility] Comment on above: Performed By: #### C BCAD, CMP, VITD, TSH reflex FT4, LIPD #### [facility] [address], [place] [id number] CO2 [Moles/Vol] 26 mmol/L Normal 20-31 [facility] Comment on above: Performed By: #### C BCAD, CMP, VITD, TSH reflex FT4, LIPD #### [facility] [address], [place] [id number] Creatinine [Mass/Vol] 0.9 mg/dL Normal 0.7-1.4 [facility] Comment on above: Performed By: #### C BCAD, CMP, VITD, TSH reflex FT4, LIPD #### [facility] [address], [place] [id number] eGFRAA 99 mL/min/1.73m2 Normal >60 [facility] Comment on above: Performed By: #### C BCAD, CMP, VITD, TSH reflex FT4, LIPD #### [facility] [address], [place] [id number] eGFRNAA 81 mL/min/1.73m2 Normal >60 [facility] Comment on above: Performed By: #### C BCAD, CMP, VITD, TSH reflex FT4, LIPD #### [facility] [address], [place] [id number] Globulin (S) [Mass/Vol] 2.6 g/dL Normal 1.9-3.7 [facility] Comment on above: Performed By: #### C BCAD, CMP, VITD, TSH reflex FT4, LIPD #### [facility] [address], [place] [id number] Glucose [Mass/Vol] 89 mg/dL Normal 65-99 Arias damon [place] [facility] Comment on above: Result Comment: For FASTING Glucose --- ADA reference ranges: Normal 65-99 mg/dl Prediabetes 100-125 Diabetes >/= 126 Performed By: #### C BCAD, CMP, VITD, TSH reflex FT4, LIPD #### [facility] [address] [place], [place] [id number] Potassium [Moles/Vol] 5.0 mmol/L Normal 3.5-5.5 [facility] [place] [facility] Comment on above: Performed By: #### C BCAD, CMP, VITD, TSH reflex FT4, LIPD #### [facility] [address] [place], [place] [id number] Protein [Mass/Vol] 6.6 g/dL Normal 6.1-8.1 Arias damon [place] [facility] Comment on above: Performed By: #### C BCAD, CMP, VITD, TSH reflex FT4, LIPD #### [facility] [address] [place], [place] [id number] Sodium [Moles/Vol] 143 mmol/L Normal 135-146 Arias damon [place] [facility] Comment on above: Performed By: #### C BCAD, CMP, VITD, TSH reflex FT4, LIPD #### [facility] [address] [place], [place] [id number] Urea nitrogen [Mass/Vol] 12 mg/dL Normal 7-25 [facility] [employer] [facility] Comment on above: Performed By: #### C BCAD, CMP, VITD, TSH reflex FT4, LIPD #### [facility] [address] [place], [place] [id number] Lipid Panelon 05-01-2021 Cholesterol [Mass/Vol] 135 mg/dL Normal 125-200 No rthern [place] [facility] Comment on above: Result Comment: Low risk < 200mg/dL Borderline risk 201-239 mg/dl High risk > or equal to 240 Performed By: #### C BCAD, CMP, VITD, TSH reflex FT4, LIPD #### [facility] [address] [place], [place] [id number] Cholesterol in HDL [Mass/Vol] 44 mg/dL Normal >40 [facility] [employer] Comment on above: Result Comment: High Cardiovascular Risk HDL <40 mg/dL Low Cardiovascular Risk HDL > or equal to 60 mg/dl Performed By: #### C BCAD, CMP, VITD, TSH reflex FT4, LIPD #### [facility] [address] [place], [place] [id number] Cholesterol in LDL [Mass/Vol] 65 mg/dL Normal [facility] Comment on above: Result Comment: LDL ATP III CLASSIFICATION LDL less than 100 mg/dl Optimal LDL 100-129 mg/dl Near or above optimal LDL 130-159 Borderline high LDL 160-189 High LDL greater than 189 mg/dl Very High Performed By: #### C BCAD, CMP, VITD, TSH reflex FT4, LIPD #### [facility] [address] [place], [place] [id number] Cholesterol in VLDL [Mass/Vol] 26 mg/dL Normal [facility] [employer] Comment on above: Performed By: #### C BCAD, CMP, VITD, TSH reflex FT4, LIPD #### [facility] [address] [place], [place] [id number] Cholesterol.total/Chol esterol in HDL [Mass ratio] 3 {ratio} Normal [facility] Comment on above: Performed By: #### C BCAD, CMP, VITD, TSH reflex FT4, LIPD #### [facility] [address] [place], [place] [id number] Triglyceride [Mass/Vol] 130 mg/dL Normal 30-150 [facility] [employer] [facility] Comment on above: Result Comment: TRIG ATPIII CLASSIFICATIONS TRIG less than 150 mg/dl Normal TRIG 150-199 mg/dl Borderline High TRIG 200-500 mg/dl High TRIG greather than 500 mg/dl Very High Performed By: #### C BCAD, CMP, VITD, TSH reflex FT4, LIPD #### [facility] [address] [place], [place] [id number] PSA SCREEN (MEDICARE)on TPSA 0.983 ng/mL Normal <4.000 [facility] [employer] Comment on above: Result Comment: PSA Test Method: ECLIA/Mick e 601 Performed By: #### P MC #### [facility] [address] [place], [place] [id number] TSH w/ Reflex to Free T4on 0 2-07-2022 TSH 1.150 uIU/mL Normal 0.400-4.50 0 [facility] Comment on above: Performed By: #### C BCAD, CMP, VITD, TSH reflex FT4, LIPD #### [facility] [address] [place], [place] [id number] Vitamin D 25-OHon 05-01-2021 VIT D 25 OH 32 ng/ml Normal >29 [facility] Comment on above: Result Comment: Maria E min D Status Deficiency <20 ng/mL Insufficiency 20-29 ng/mL Optimal 30-100 ng/mL Possible Toxicity >=150 ng/mL Performed By: #### C BCAD, CMP, VITD, TSH reflex FT4, LIPD #### [facility] [address] [place], [place] [id number] Covid-19 PCR (CVDTB)on SARS-CoV-2 (COVID-19) RNA GÓMEZ+probe Ql (Unsp spec) Not detected Normal NOT DETECTED [facility] Comment on above: Result Comment: This test is not yet approved or cleared by the [place] FDA. When there are no FDA-approved or cleared tests available, and other criteria are met, FDA can make tests available under an emergency access mechanism called an Emergency Use Authorization (EUA). The EUA for this test is supported by the [place] of Health and Human Service's (HHS's) declaration [...] Performed By: #### F ETIBC, FERR #### [facility] [address] [place], [place] [address] Dr. Natalya Arthur CBC AUTO DIFFon 02-03-2021 BASO # 0.0 103/ul Normal 0.0-0.1 [facility] Comment on above: Performed By: #### C BC #### [facility] [address] [place] [address] Dr. Natalya Arthur Basophils/100 WBC (Bld) 0.3 % Normal 0.2-2.0 [facility] Comment on above: Performed By: #### C BC #### [facility] [address] [place] [address] Dr. Natalya Arthur EO # 0.0 103/ul Normal 0.0-0.7 [facility] Comment on above: Performed By: #### C BC #### [facility] [address] [place] [address] Dr. Natalya Arthur Eosinophils/100 WBC (Bld) 0.1 % Critically low 0.9-7.0 [facility] Comment on above: Performed By: #### C BC #### [facility] [address] [place] [address] Dr. Natalya Arthur Erythrocyte distribution width (RBC) [Ratio] 13.2 % Normal 11.0-15.0 [facility] Comment on above: Performed By: #### C BC #### [facility] [address] [place] [address] Dr. Natalya Arthur Hematocrit (Bld) [Volume fraction] 46.5 % Normal 42.0-54.0 [facility] Comment on above: Performed By: #### C BC #### [facility] [address] [place] [address] Dr. Natalya Arthur Hemoglobin (Bld) [Mass/Vol] 15.2 g/dL Normal 14.0-18.0 [facility] Comment on above: Performed By: #### C BC #### [facility] [address] [place] [address] Dr. Natalya Arthur IG # 0.04 10e3/ul Critically high 0.00-0.03 [facility] Comment on above: Performed By: #### C BC #### [facility] [address] [place] [address] Dr. Natalya Arthur IG % 0.3 % Normal 0.0-0.5 [facility] Comment on above: Performed By: #### C BC #### [facility] [address] [place] [address] Dr. Natalya Arthur LYMPH # 1.2 103/ul Normal 1.2-3.8 [facility] Comment on above: Performed By: #### C BC #### [facility] [address] [place] [address] Dr. Natalya Arthur Lymphocytes/100 WBC (Bld) 10.3 % Critically low 20.5-60.0 [facility] Comment on above: Performed By: #### C BC #### [facility] [address] [place] [address] Dr. Natalya Arthur MANUAL DIFF REQ NO Normal [facility] Comment on above: Performed By: #### C BC #### [facility] [address] [place] [address] Dr. Natalya Arthur MCH (RBC) [Entitic mass] 31.0 pg Normal 25.9-34.0 [facility] Comment on above: Performed By: #### C BC #### [facility] [address] [place] [address] Dr. Natalya Arthur MCHC (RBC) [Mass/Vol] 32.7 g/dL Normal 29.9-35.2 [facility] Comment on above: Performed By: #### C BC #### [facility] [address] [place] [address] Dr. Natalya Arthur MCV (RBC) [Entitic vol] 94.9 fL Critically high 80.0-94.0 [facility] Comment on above: Performed By: #### C BC #### [facility] [address] [place] [address] Dr. Natalya Arthur MONO # 1.1 103/ul Critically high 0.3-0.8 [facility] Comment on above: Performed By: #### C BC #### [facility] [address] [place] [address] Dr. Natalya Arthur Monocytes/100 WBC (Bld) 9.2 % Normal 1.7-12.0 [facility] Comment on above: Performed By: #### C BC #### [facility] [address] [place] [address] [address] Natalya Arthur NEUT # 9.6 103/ul Critically high 1.4-6.5 [facility] Comment on above: Performed By: #### C BC #### [facility] [address] [place] [address] [address] Natalya Arthur Neutrophils/100 WBC (Bld) 79.8 % Critically high 43.0-75.0 [facility] Comment on above: Performed By: #### C BC #### [facility] [address] [place] [address] Dr. Natalya Arthur Platelet mean volume (Bld) [Entitic vol] 10.3 fL Normal 9.5-13.5 [facility] Comment on above: Performed By: #### C BC #### [facility] [address] [place] [address] Dr. Natalya Arthur PLT 126 103/ul Critically low 150-450 [facility] Comment on above: Performed By: #### C BC #### [facility] [address] [place] [address] Dr. Natalya Arthur RBC 4.90 106/ul Normal 4.70-6.10 [facility] Comment on above: Performed By: #### C BC #### [facility] [address] [place] [address] Dr. Natalya Arthur WBC 12.1 103/ul Critically high 4.0-11.0 [facility] Comment on above: Performed By: #### C BC #### [facility] [address] [place] [address] Dr. Natalya Arthur ER URINE PROFILEon 1 Bilirubin Ql (U) Negative Normal NEGATIVE [facility] Comment on above: Performed By: #### MICK BESS #### [facility] [address] [place] [address] Dr. Natalya Arthur Clarity (U) CLEAR Normal CLEAR [facility] Comment on above: Performed By: #### MICK BESS #### [facility] [address] [place] [address] Dr. Natalya Arthur Color (U) YELLOW Normal YELLOW [facility] Comment on above: Performed By: #### Arthur MCLEAN UMICRO #### [facility] [address] [place] [address] Dr. Natalya Arthur ERUAHD A micrscopic examina tion will be performed if indicated. Normal [facility] Comment on above: Performed By: #### Arthur MCLEAN UMICRO #### [facility] [address] [place] [address] Dr. Natalya Arthur Glucose Ql (U) Negative Normal NEGATIVE [facility] Comment on above: Performed By: #### Arthur MCLEAN UMICRO #### [facility] [address] [place] [address] Dr. Natalya Arthur Hemoglobin Ql (U) LARGE Abnormal NEGATIVE [facility] Comment on above: Performed By: #### Arthur MCLEAN UMICRO #### [facility] [address] [place] [address] Dr. Natalya Arthur Ketones Ql (U) Negative Normal NEGATIVE [facility] Comment on above: Performed By: #### Arthur MCLEAN UMICRO #### [facility] [address] [place] [address] Dr. Natalya Arthur LEUKOCYTES Negative Normal NEGATIVE [facility] Comment on above: Performed By: #### Arthur MCLEAN UMICRO #### [facility] [address] [place] [address] Dr. Natalya Arthur Nitrite Ql (U) Negative Normal NEGATIVE [facility] Comment on above: Performed By: #### Arthur MCLEAN UMICRO #### [facility] [address] [place] [address] Dr. Natalya Arthur pH (U) 6.0 [pH] Normal 5-9 [facility] Comment on above: Performed By: #### Arthur MCLEAN UMICRO #### [facility] [address] [place] [address] Dr. Natalya Arthur Protein (U) [Mass/Vol] 100 mg/dL Abnormal NEGAT ANTONIO/ TRACE [facility] Comment on above: Performed By: #### MICK BESS #### [facility] [address] [place] [address] Dr. Natalya Arthur SPEC GRAVITY >=1.030 Abnormal 1.005-<=1. 025 [facility] Comment on above: Performed By: #### MICK BESS #### [facility] [address] [place] [address] Dr. Natalya Arthur UR MICRO IND INDICATED Normal [facility] Comment on above: Performed By: #### MICK BESS #### [facility] [address] [place] [address] Dr. Natalya Arthur Urobilinogen Qn (U) 0.2 {Vonnie'U}/dL Normal 0.2 - 1. 0 [facility] Comment on above: Performed By: #### MICK BESS #### [facility] [address] [place] [address] Dr. Natalya Arthur LACTATE/LACTIC ACIDon 2020 Lactate [Moles/Vol] 1.7 mmol/L Normal 0.7-2.0 [facility] Comment on above: Performed By: #### C ARIELLATB #### [facility] [address] [place] [address] Dr. Natalya Arthur LIPASEon 02-03-2021 Lipase [Catalytic activity/Vol] 143.0 U/L Normal 23.0-300.0 [facility] Comment on above: Performed By: #### C ARIELLATBH #### [facility] [address] [place] [address] Dr. Natalya Arthur PROF 14(COMP METB)on 021 Albumin [Mass/Vol] 3.6 g/dL Normal 3.5-5.0 [facility] Comment on above: Performed By: #### C ARIELLATBH #### [facility] [address] [place] [address] Dr. Natalya Arthur Albumin/Globulin [Mass ratio] 0.8 {ratio} Normal [facility] Comment on above: Performed By: #### C VDTBH #### [facility] [address] [place] [address] [address] Natalya Arthur ALP [Catalytic activity/Vol] 108 U/L Normal 38-126 [facility] Comment on above: Performed By: #### C VDTBH #### [facility] [address] [place] [address] [address] Natalya Arthur ALT [Catalytic activity/Vol] 65 U/L Normal 21-72 [facility] Comment on above: Performed By: #### C VDTBH #### [facility] [address] [place] [address] [address] Natalya Arthur Anion gap [Moles/Vol] 13.9 mmol/L Normal [facility] Comment on above: Performed By: #### C VDTBH #### [facility] [address] [place] [address] [address] Natalya Arthur AST [Catalytic activity/Vol] 42 U/L Normal 17-59 [facility] Comment on above: Performed By: #### C VDTBH #### [facility] [address] [place] [address] [address] Natalya Arthur Bilirubin [Mass/Vol] 1.0 mg/dL Normal 0.2-1.3 [facility] Comment on above: Performed By: #### C VDTBH #### [facility] [address] [place] [address] [address] Natalya Arthur Calcium [Mass/Vol] 9.7 mg/dL Normal 8.4-10.2 [facility] Comment on above: Performed By: #### C VDTBH #### [facility] [address] [place] [address] [address] Natalya Arthur Chloride [Moles/Vol] 100 mmol/L Normal 98-107 [facility] Comment on above: Performed By: #### C VDTBH #### [facility] [address] [place] [address] [address] Natalya Arthur CO2 [Moles/Vol] 28.2 mmol/L Normal 22.0-30.0 [facility] Comment on above: Performed By: #### C VDTBH #### [facility] [address] [place] [address] [address] Natalya Arthur Creatinine [Mass/Vol] 1.18 mg/dL Normal 0.66-1.25 [facility] Comment on above: Performed By: #### C VDTBH #### [facility] [address] [place] [address] [address] Natalya Arthur EGFR-AF JAPANESE >60 Normal >=60 [facility] Comment on above: Performed By: #### C VDTBH #### [facility] [address] [place] [address] [address] Natalya Arthur EGFR-NON AF JAPANESE =60 Normal >=60 [facility] Comment on above: Performed By: #### C VDTBH #### [facility] [address] [place] [address] Dr. Natalya Arthur Globulin (S) [Mass/Vol] 4.5 g/dL Normal [facility] Comment on above: Performed By: #### C VDTBH #### [facility] [address] [place] [address] [address] Natlaya Arthur Glucose [Mass/Vol] 121 mg/dL Critically high 74-106 [facility] Comment on above: Performed By: #### C VDTBH #### [facility] [address] [place] [address] Dr. Natalya Arthur Potassium [Moles/Vol] 4.1 mmol/L Normal 3.4-5.0 [facility] Comment on above: Performed By: #### C VDTBH #### [facility] [address] [place] [address] [address] Natalya Arthur Protein [Mass/Vol] 8.1 g/dL Normal 6.1-8.2 [facility] Comment on above: Performed By: #### C VDTBH #### [facility] [address] [place] [address] Dr. Natalya Arthur Sodium [Moles/Vol] 138 mmol/L Normal 137-145 [facility] [place] [facility] Comment on above: Performed By: #### C VDTBH #### [facility] [address] [place] [address] [address] Natalya Arthur Urea nitrogen [Mass/Vol] 17.0 mg/dL Normal 9.0-20.0 [facility] Comment on above: Performed By: #### C VDTBH #### [facility] [address] [place] [address] [address] Natalya Arthur Urea nitrogen/Creatinine [Mass ratio] 14.4 mg/mg Normal [facility] Comment on above: Performed By: #### C VDTBH #### [facility] [address] [place] [address] [address] Natalya Arthur TROPONIN, HIGH SENSITIVITYon 02-03-2021 HSTROP 49.0 pg/mL Critically high 4.0-42.2 [facility] Comment on above: Result Comment: CUT- OFF POINTS HAVE BEEN ESTABLISHED BASED ON THE FOURTH UNIVERSAL DEFINITIONS OF MYOCARDIAL INFARCTION. THE UPPER REFERENCE LIMIT (URL) OF TROPONIN, DEFINED THE 99TH PERCENTILE OF cTnI DISTRIBUTION IN A REFERENCE POPULATION, HAS BEEN CONFIRMED THE DECISION THRESHOLD FOR LA DIAGNOSIS. Performed By: #### C VDTB #### [facility] [address] [place] [address] Dr. Natalya Arthur URINE MICROSCOPIC ONLYon AMORPHOUS CRYSTALS FEW Normal [facility] [place] [facility] Comment on above: Performed By: #### Arthur MCLEAN UMICRO #### [facility] [address] [place] [address] Dr. Natalya Arthur BACTERIA TRACE Abnormal NONE SEEN [facility] Comment on above: Performed By: #### Arthur MCLEAN UMICRO #### [facility] [address] [place] [address] Dr. Natalya Arthur Bacteria identified Cx Nom (U) NOT INDICATED Normal [facility] Comment on above: Performed By: #### Arthur MCLEAN UMICRO #### [facility] [address] [place] [address] [address] Natalya Arthur CAST NONE SEEN Normal NONE SEEN [facility] Comment on above: Performed By: #### Arthur MCLEAN UMICRO #### [facility] [address] [place] [address] [address] Natalya Arthur Crystals LM Nom (Urine sed) SEEN Abnormal NONE SEEN [facility] Comment on above: Performed By: #### Arthur MCLEAN UMICRO #### [facility] [address] [place] [address] Dr. Natalya Arthur Epithelial cells LM Ql (Urine sed) FEW Abnormal NONE SEEN /RARE [facility] Comment on above: Performed By: #### Arthur MCLEAN UMICRO #### [facility] [address] [place] [address] Dr. Natalya Arthur MUCOUS LARGE Abnormal NONE SEEN [facility] Comment on above: Performed By: #### Arthur MLCEAN UMICRO #### [facility] [address] [place] [address] Dr. Natalya Arthur RBC 10-20 Abnormal 0-2 [facility] Comment on above: Performed By: #### Arthur MCLEAN UMICRO #### [facility] [address] [place] [address] Dr. Natalya Arthur WBC 0-2 Abnormal NONE SEEN [facility] Comment on above: Performed By: #### Arthur MCLEAN UMICRO #### [facility] [address] [place] [address] Dr. Natalya Arthur US SINGLE QUAD RT [...] by: STEPHEN ARBOLEDA Date: 2021-02-03 19:08 Normal [facility] XR CHEST 1 Von 02-03-2021 XR [...] by: STEPHEN ARBOLEDA Date: 2021-02-03 19:22 Normal [facility] Cardiovascular Lab Reporton 10-31-2018 Cardiovascular Lab Report [facility] Patient Name: [facility] Pankaj MR #: [id number] Department of Physician: Artis Horner MEric Division of Service Date: 10/30/2018 Cardiology Birthdate: 1945 Adult Cardiovascular Room #: [address] [place] [address] Cardiovascular Laboratory Report CLINICAL PRESENTATION: Pankaj Payne is a 73-year-old male with past medical history significant for CAD, status post prior PCI of the left circumflex coronary artery in 02/2018; hypertension; hyperlipidemia; hypothyroidism. The patient was [facility] He reports worsening fatigue that [...] noted. 4. Outpatient followup with Dr. Tenorio, [place] [facility]. PROCEDURES: Coronary angiogram, left heart catheterization, [...] infiltrated over the right radial artery. A 6-Czech Terumo Glidesheath slender was placed in the right radial artery. The radial anti-vasospasm cocktail of verapamil 2.5 mg and nitroglycerin 200 mcg was administered through the sheath. All catheter exchanges were made over the MagTwicketer Torque guidewire. Initially, a 5-Czech [place] catheter was used to engage the coronary arteries. The [place] catheter engaged the right coronary artery, but did not engage the left main coronary artery well. I then exchanged over wire to a 6-Czech JL3.5 catheter which engaged the left main coronary artery. Coronary angiogram was performed in multiple orthogonal views using hand injection of contrast. At this point, it was apparent that the right PDA had intermediate stenosis, I elected to proceed with IFR evaluation. The [place] V[place]ata wire was zeroed outside of the body and then normalized at the catheter guide tip. Heparin anticoagulation was used for this procedure and the ACT was maintained greater than 200 seconds. The [place] V[place] wire was then manipulated to the [...] patent with 50% stenosis. Electronically Signed by: Josaih Schafer M.D. 11/12/2018 07:40 P Josiah Schafer M.D. Date Dict: 10/30/2018/01:51 P/Josiah Schafer M.D. Date Trans: 10/31/2018 05:07 Rishabh/katelin [id number] cc: Frantz Conley M.D. [address] [address] Frantz Tenorio M.D. [address] [id number] [place] [facility] Operative Reporton [phone] Operative Report Date of Surgery: 02/25/2018SURGEON: [...] day for postoperative care.Hardeep Fraga D.O.glsDictated: 02/25/2018 #[id number]: 02/25/2018 #[id number]: Horace Cabrera [facility] Comment on above: Result Comment: Elec tronically Signed By: Hardeep Fraga DO\.br\Date and Time Signed: 03/03/18 12:57 EST Cardiovascular Lab Reporton 03-01-2018 Cardiovascular Lab Report [facility] Patient Name: [facility] Pankaj MR #: [id number] Department of Physician: Gage Barahona Medicine MEric Division of Service Date: 02/28/2018 Cardiology Birthdate: 1945 Adult Cardiovascular Room #: 3AB [id number] [facility] [address] [facility]. [place] [address] Cardiovascular Laboratory Report FINAL IMPRESSION: 1. Successful [...] fashion. Using a modified Seldinger technique, a 5-Czech micropuncture was placed in right internal jugular vein. This was upsized to a regular 6-Czech sheath. Then, a 6-Czech Trinh was used for right heart catheterization. The right heart catheterization was performed. Access of the right radial artery under ultrasound guidance and in the right ulnar artery under ultrasound guidance a 6-Czech sheath was placed and then used a 6-Czech JL3.5 and JR5 catheter for coronary angiography. After baseline angiography was performed, the case was discussed by his referring utility gelatin maker, Dr. Tenorio, as well as with the patient's family. Also given multiple lesions in right , circumflex coronary artery and a distal LAD lesion, we also discussed CABG as an option. 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 We decided to treat circumflex. 6-Czech XB 3.0 guide was used to engage the left main coronary ostium. A 0.014 Erin wire was passed across the proximal circumflex into the 1st obtuse marginal branch. Predilatation was performed using a 2.5 x 15 balloon. Then, we deployed a 2.5 x 16 Synergy stent. This was post-dilated with a 2.75 x 15 noncompliant at 24 atmospheres. Final angiography showed good stent result in the proximal circumflex into the 1st obtuse marginal branch. The qagan tayagungin circumflex stayed open. There were no complications. [...] Barahona M.D. Date Trans: 03/01/2018 03:16 A/katelin [id number] cc: JYOTI Villalobos [address] [place] [address] Frantz Conley M.D. [address] [address] Frantz Tenorio M.D. [address] [place] [address] Normal [facility] History and Physicalon 02-28 History and Physical MR#: [id number] [facility] Pt. Name: Pankaj Payne Admitted: 02/28/2018 Date [...] Lopez M.D. Date Trans: 02/28/2018 04:44 P/katelin [id number] Normal [facility] Coding Summary.on 02-26-2018 Coding Summary. CODING DATE: 018 [facility] STATUS: Home (Routine DC) PAYOR: Medicare APC DESCRIPTION 5491 Level 1 Intraocular Procedures ADMIT DX: REASON FOR VISIT DX: H25.11 Age-related nuclear cataract, right eye FINAL DX: PRINCIPAL: H25.11 Age-related nuclear cataract, right eye SECONDARY: H25.041 Posterior subcapsular polar age-related cataract, right eye E03.9 Hypothyroidism, unspecified PYMT PROC APC STAT DESCRIPTION DOCTOR NAME DATE 24202 5491 J1 Extracapsular cataract Hardeep Fraga DO [...] Caldwell Date Saved: 02/26/2018 04:03 pm Normal [facility] Main OR Intraoperative Recor don 02-26-2018 Main OR Intraoperative Record IntraOp Document Type FT Summary Primary Physician: Hardeep Fraga DO Finalized Date/Time: 02/26/18 14:08:09 Pt. Name: PANKAJ PAYNE/Sex: 1945 Male Med Rec #: [id number] Physician: Hardeep Fraga DO Financial #: [id number] Pt. Type: A Room/Bed: [place] [address] Admit/Disch: 02/25/18 08:23:00 - 02/25/18 12:00:00 Institution: [...] Case Attendee Hardeep Fraga DO, RN, Arnold ALEGRIAN, RN, Sussy Role Performed Surgeon - Primary Ruching Machine Operator - Primary Ruching Machine Operator - Primary Time In 02/25/18 11:00:00 02/25/18 11:00:00 02/25/18 11:00:00 Time Out 02/25/18 11:18:00 02/25/18 11:18:00 02/25/18 11:18:00 Procedure CATARACT EXTRACTION W/ CATARACT EXTRACTION W/ CATARACT EXTRACTION W/ INTRAOCULAR LENS(Right) INTRAOCULAR LENS(Right) INTRAOCULAR LENS(Right) Comments Last Modified By: Arnold Moreno RN, RN, Arnold Nathan RN 02/25/18 11:17:52 02/25/18 [...] Time Out Hardeep Fraga DO, Given Participants Tiffanie DAMON, Clark MarN, RN, Smith Hi CST, Nessa Bhardwaj CST, [...] Procedure Yes Primary Surgeon Hardeep Fraga DO 02/25/18 11:05:00 Stop 02/25/18 11:16:00 Anesthesia Type [...] tissue Entry 1 Skin Integrity Warm, Dry, [place], Unable Outcomes Met? Yes to Visualize Last [...] Instruments Status Correct Correct Time By Ruffing INFO PRINT PRESS OPERATOR, Zoila E Ruffing INFO PRINT PRESS OPERATOR, Zoila E Outcomes Met? Yes Yes [...] RN Patient Status Stable Skin. Condition Warm, [place], Dry Airway Maintenance Oxygen in Use? No [...] safely administered during the perioperative period For [facility] please see scanned medication reconcilliation form for medications used at the field during the procedure. Implant Log FT Pre-Care Text: Records devices implanted during the operative or invasive procedure Entry 1 Implant/Explant Implant Implant Identification Description ROSENDA [id number] 12.50MM Serial Number [id number] 13.50 [[id number]] Lot Number [id number] [employer] Machine Operator FT[employer] Catalog ?# [id number][F] Expiration Date 05/23/19 Usage Data Implant Site right eye Quantity 1 Outcomes Met? Yes Last Modified By: Arnold Moreno RN 02/25/18 11:08:01 Post-Care Text: The patient is free from signs and symptoms of injury caused by extraneous objects Case Comments Finalized By: Elayne Agosto CST Document Signatures Signed By: Arnold Moreno RN 02/25/18 11:18 Elayne Agosto CST 02/26/18 14:08 Normal [facility] History and Physicalon 12-04 -2018 History and Physical HOSPITAL REGULATION S: ALL [...] in the near future.Hardeep Fraga D.O.aekDictated: 02/24/2018 #[id number] 02/25/2018 #[id number]: Hardeep Fraga D.O. Normal [facility] Comment on above: Result Comment: Elec tronically Signed By: Hardeep Fraga DO\.br\Date and Time Signed: 02/25/18 10:24 EST Inpatient Patient Summaryon 02-25-2018 In[facility] InstructionsPERSON INFORMATION Name: PANKAJ PAYNE PHYSICIANS Admitting Physician: Hardeep Fraga DOAttending Physician: Hardeep Fraga DO PCP: FRANTZ CONLEY MD BDischarge Diagnosis: Cataract Comment: PATIENT EDUCATION INFORMATIONInstructions:M edication Leaflets:Follow up:With: Address: When: Hardeep Fraga [facility] [address], [address] [place] [address] Business (1) Within 1 to 2 days MEDICATION LISTComment: Normal [facility] Main OR PACU II Recordon Main OR PACU II Record PACU Phase II Doc ument Type FT Summary Primary Physician: Hardeep Fraga DO Finalized Date/Time: 02/25/18 12:33:41 Pt. Name: PANKAJ PAYNE/Sex: 1945 Male Med Rec #: [id number] Physician: Hardeep Fraga DO Financial #: [id number] Pt. Type: A Room/Bed: [place] [address] Admit/Disch: 02/25/18 08:23:55 - Institution: Case Times [...] By: Lissa Pope RN 02/25/18 12:33 Normal [facility] Main OR Preoperative Recordo n 02-25-2018 Main OR Preoperative Record PreOp Document Type FT Summary Primary Physician: Hardeep Fraga DO Finalized Date/Time: 02/25/18 11:05:22 Pt. Name: PAYNEPANKAJ/Sex: 1945 Male Med Rec #: [id number] Physician: Hardeep Fraga DO Financial #: [id number] Pt. Type: A Room/Bed: [place] [address] Admit/Disch: 02/25/18 08:23:55 - Institution: Case Times [...] By: Arnold Moreno RN 02/25/18 11:05 Normal [facility] Main OR Preoperative Record Holding Area Document Type FT Summary Primary Physician: Hardeep Fraga DO Finalized Date/Time: 02/25/18 08:46:23 Pt. Name: PANKAJ PAYNE /Sex: 1945 Male Med Rec #: [id number] Physician: Hardeep Fraga DO Financial #: [id number] Pt. Type: A Room/Bed: [place] [address] Admit/Disch: 02/25/18 08:23:55 - Institution: Case Times [...] By: Lissa Pope RN 02/25/18 08:46 Normal [facility] Patient Education - Texton 1 04-28-2017 Patient Education - Text Normal [facility] Progress Note-Physicianon Protein mass conc Patient: PANKAJ [...] Blood Loss: 0 ml. Complications: None. Normal [facility] Comment on above: Result Comment: Elec tronically [...] day for postoperative care.Hardeep Fraga D.O.lkrDictated: 02/11/2018 #[id number]: 02/12/2018 #[id number]: Hardeep Fraga D.O. [facility] Comment on above: Result Comment: Elec tronically Signed By: Hardeep Fraga DO\.br\Date and Time Signed: 02/17/18 08:38 EST Coding Summary.on 02-12-2018 Coding Summary. CODING DATE: 018 FINAL [facility] STATUS: Home (Routine DC) PAYOR: Medicare APC DESCRIPTION 5491 Level 1 Intraocular Procedures ADMIT DX: REASON FOR VISIT DX: H25.13 Age-related nuclear cataract, bilateral FINAL DX: PRINCIPAL: H25.13 Age-related nuclear cataract, bilateral SECONDARY: H25.043 Posterior subcapsular polar age-related cataract, bilateral E03.9 Hypothyroidism, unspecified PYMT PROC APC STAT DESCRIPTION DOCTOR NAME DATE 05922 5491 J1 Extracapsular cataract Hardeep Fraga DO [...] Abbasi Revised Date Saved: 02/12/2018 11:05 am [facility] Main OR Preoperative Recordo n 1121-2018 Main OR Preoperative Record Holding Area Document Type FT Summary Primary Physician: Hardeep Fraga DO Finalized Date/Time: 02/12/18 07:26:59 Pt. Name: PANKAJ PAYNE /Sex: 1945 Male Med Rec #: [id number] Physician: Hardeep Fraga DO Financial #: [id number] Pt. Type: A Room/Bed: [place] [address] Admit/Disch: 02/11/18 08:31:00 - 02/11/18 12:00:00 Institution: [...] HEMANT Macdonald RN, Andrea 02/12/18 07:26 Normal [facility] History and Physicalon 02-11 History and Physical [...] in the near future.Hardeep Fraga D.O.aekDictated: 02/10/2018 #[id number] 02/11/2018 #[id number]: Hardeep Fraga D.O. [facility] Comment on above: Result Comment: Elec tronically Signed By: Hardeep Fraga DO\.br\Date and Time Signed: 02/11/18 08:10 EST Inpatient Patient Summaryon 02-11-2018 Inpatient Patient Summary [facility] InstructionsPERSON INFORMATION Name: PAYNE, PANKAJ [place] PHYSICIANS Admitting Physician: Hardeep Fraga DOAttending Physician: Hardeep Fraga DO PCP: FRANTZ CONLEY MD BDischarge Diagnosis: Cataract Comment: PATIENT EDUCATION INFORMATIONInstructions:Z AHLER- After Surgery Eye (Custom)Medication Leaflets:Follow up:With: Address: When: Hardeep Fraga [facility] [address] [facility] [address] [place] [address] Business (1) Within 1 to 2 days MEDICATION LISTComment: [facility] Main OR Intraoperative Recor don 02-11-2018 Main OR Intraoperative Record IntraOp Document Type FT Summary Primary Physician: Hardeep Fraga DO Finalized Date/Time: 02/11/18 13:09:49 Pt. Name: PANKAJ PAYNE D.O.B./Sex: 1945 Male Med Rec #: [id number] Physician: Hardeep Fraga DO Financial #: [id number] Pt. Type: A Room/Bed: [facility] Admit/Disch: 02/11/18 08:31:00 - 02/11/18 12:00:00 Institution: Case Times FT Entry 1 Patient Times In Room 02/11/18 11:04:00 Out Room 02/11/18 11:24:00 Procedure Times Start 02/11/18 11:11:00 Stop 02/11/18 11:22:00 Anesthesia Times Last Modified By: Elayne Agosto CST 02/11/18 11:24:30 General Comments: 02/11/18 Chart opened to review and send charges Estela Agosto INFO PRINT PRESS OPERATOR Case Attendance FT Entry 1 Entry 2 Entry 3 Case Attendee Hardeep Fraga DO RN, Rosanna Moreno RN, Arnold Morton Role Performed Surgeon - Primary Ruching Machine Operator - Primary Ruching Machine Operator - Primary Time In 02/11/18 11:04:00 02/11/18 11:04:00 02/11/18 11:04:00 Time Out 02/11/18 11:24:00 02/11/18 11:24:00 02/11/18 11:24:00 Procedure CATARACT EXTRACTION W/ CATARACT EXTRACTION W/ CATARACT EXTRACTION W/ INTRAOCULAR LENS(Left) INTRAOCULAR LENS(Left) INTRAOCULAR LENS(Left) Comments Last Modified By: Siddharth RN, Rosanna Messina RN, Rosanna Vanegas RN 02/11/18 11:24:31 02/11/18 11:24:31 02/11/18 11:24:31 Entry 4 Entry 5 Case Attendee Marisela Huber CST INFO PRINT PRESS OPERATOR/Nusrat ZAMORA Role Performed Scrub - Primary Scrub - Other Time In 02/11/18 11:04:00 02/11/18 11:04:00 Time Out 02/11/18 11:24:00 02/11/18 11:24:00 Procedure CATARACT EXTRACTION W/ CATARACT EXTRACTION W/ INTRAOCULAR LENS(Left) INTRAOCULAR LENS(Left) Comments Last Modified By: Siddharth RN, Rosanna Messina RN, Rosanna Morton 02/11/18 [...] Time Out Hardeep Fraga DO, Given Participants Farris RN, Rosanna M, Tiffanie RN, Krys Mar INFO PRINT PRESS OPERATOR/SA, Mayo Silverio INFO PRINT PRESS OPERATOR, Marisela Rodriguez Time Out Complete 02/11/18 11:08:00 Outcomes Met? 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 Yes Last Modified By: Rosanna Messina RN 02/11/18 11:19:54 Post-Care Text: The patient is free from signs and symptoms of injury caused by extraneous objects Case Comments Finalized By: Elayne Agosto CST Document Signatures Signed By: Rosanna Messina RN 02/11/18 11:24 Elayne Agosto CST 02/11/18 13:09 Normal [facility] Main OR PACU II Recordon Main OR PACU II Record PACU Phase II Doc ument Type FT Summary Primary Physician: Hardeep Fraga DO Finalized Date/Time: 02/11/18 12:09:46 Pt. Name: PANKAJ PAYNE/Sex: 1945 Male Med Rec #: [id number] Physician: Hardeep Fraga DO Financial #: [id number] Pt. Type: A Room/Bed: [place] [address] Admit/Disch: 02/11/18 08:31:00 - Institution: Case Times [...] By: Lisa Rubi RN 02/11/18 12:09 Normal [facility] Patient Education - Texton 1 04-13-2017 Patient Education - Text [facility] Progress Note-Physicianon Protein mass conc Patient: [...] Blood Loss: 0 ml. Complications: None. Normal [facility] Comment on above: Result Comment: Elec tronically Signed By: Hardeep Fraga DO\.br\Date and Time Signed: 02/11/18 11:23 EST Vital Signs Date Time Vital Sign Value Performing Clinician Facility 11-11-2024 13:33-0400 Body height 157.48 cm Frantz Conley II Work Phone: [facility] 11-11-2024 13:33-0400 Body mass index (BMI) [Ratio] 32.3 kg/m2 Frantz Conley II Work Phone: [facility] 11-11-2024 13:33-0400 Body weight 80.28 kg Frantz Conley II Work Phone: [facility] 11-11-2024 13:33-0400 Diastolic blood pressure 79 mm[Hg] Frantz Conley II Work Phone: [facility] 11-11-2024 13:33-0400 Heart rate 61 /min Frantz Conley II Work Phone: [facility] 11-11-2024 13:33-0400 Systolic blood pressure 120 mm[Hg] Frantz Conley II Work Phone: [facility] 10-20-2024 14:31-0400 Body height 166.4 cm Rosanna Hemmer PA Work Phone: [facility] 10-20-2024 14:31-0400 Body mass index (BMI) [Ratio] 29.24 kg/m2 Rosanna Hemmer PA Work Phone: [facility] 10-20-2024 14:31-0400 Body weight 80.92 kg Rosanna Hemmer PA Work Phone: [facility] 10-20-2024 14:31-0400 Diastolic blood pressure 84 mm[Hg] Rosanna Hemmer PA Work Phone: [facility] 10-20-2024 14:31-0400 Heart rate 69 /min Rosanna Hemmer PA Work Phone: [facility] 10-20-2024 14:31-0400 Respiratory rate 16 /min Rosanna Hemmer PA Work Phone: [facility] 10-20-2024 14:31-0400 SaO2% (BldA) [Mass fraction] 96 % Rosanna Hemmer PA Work Phone: [facility] 10-20-2024 14:31-0400 Systolic blood pressure 132 mm[Hg] Rosanna Hemmer PA Work Phone: [facility] 10-05-2024 11:04-0400 Body height 166.4 cm Frantz Conley MD Work Phone: [facility] 10-05-2024 11:04-0400 Body mass index (BMI) [Ratio] 29.66 kg/m2 Frantz Conley MD Work Phone: [facility] 10-05-2024 11:04-0400 Body weight 82.1 kg Frantz Conley MD Work Phone: [facility] 10-05-2024 11:04-0400 Diastolic blood pressure 62 mm[Hg] Frantz Conley MD Work Phone: [facility] 10-05-2024 11:04-0400 Heart rate 48 /min Frantz Conley MD Work Phone: [facility] 10-05-2024 11:04-0400 SaO2% (BldA) [Mass fraction] 97 % Frantz Conley MD Work Phone: [facility] 10-05-2024 11:04-0400 Systolic blood pressure 110 mm[Hg] Frantz Conley MD Work Phone: [facility] 09-08-2024 14:56-0400 Body height 165.1 cm Crescencio Marin DO Work Phone: [facility] 09-08-2024 14:56-0400 Body mass index (BMI) [Ratio] 30.29 kg/m2 Crescencio Marin DO Work Phone: [facility] 09-08-2024 14:56-0400 Body weight 82.56 kg Crescencio Marin DO Work Phone: [facility] 09-08-2024 14:56-0400 Diastolic blood pressure 68 mm[Hg] Crescencio Marin DO Work Phone: [facility] 09-08-2024 14:56-0400 Heart rate 58 /min Crescencio Marin DO Work Phone: [facility] 09-08-2024 14:56-0400 Systolic blood pressure 122 mm[Hg] Crescencio Marin DO Work Phone: [facility] 04-30-2024 13:05-0500 Body height 157.48 cm Frantz Conley II Work Phone: [facility] 04-30-2024 13:05-0500 Body mass index (BMI) [Ratio] 32 kg/m2 Frantz Conley II Work Phone: [facility] 04-30-2024 13:05-0500 Body weight 79.37 kg Frantz Conley II Work Phone: [facility] 03-12-2024 10:59-0500 Body height 166.4 cm Frantz Conley MD Work Phone: [facility] 03-12-2024 10:59-0500 Body mass index (BMI) [Ratio] 29.17 kg/m2 Frantz Conley MD Work Phone: [facility] 03-12-2024 10:59-0500 Body weight 80.74 kg Frantz Conley MD Work Phone: [facility] 03-12-2024 10:59-0500 Diastolic blood pressure 66 mm[Hg] Frantz Conley MD Work Phone: [facility] 03-12-2024 10:59-0500 Heart rate 56 /min Frantz Conley MD Work Phone: [facility] 03-12-2024 10:59-0500 SaO2% (BldA) [Mass fraction] 98 % Frantz Conley MD Work Phone: [facility] 03-12-2024 10:59-0500 Systolic blood pressure 122 mm[Hg] Frantz Conley MD Work Phone: [facility] 01-01-2024 11:24-0400 Heart rate 52 /min Crescencio Marin DO Work Phone: [facility] 01-01-2024 11:16-0400 Body height 165.1 cm Crescencio Marin DO Work Phone: [facility] 01-01-2024 11:16-0400 Body mass index (BMI) [Ratio] 29.09 kg/m2 Crescencio Marin DO Work Phone: [facility] 01-01-2024 11:16-0400 Body weight 79.29 kg Crescencio Marin DO Work Phone: [facility] 01-01-2024 11:16-0400 Diastolic blood pressure 60 mm[Hg] Crescencio Marin DO Work Phone: [facility] 01-01-2024 11:16-0400 Systolic blood pressure 118 mm[Hg] Crescencio Marin DO Work Phone: [facility] 10-23-2023 11:17-0400 Diastolic blood pressure 84 mm[Hg] II Frantz Conley Work Phone: [facility] 10-23-2023 11:17-0400 Heart rate 70 /min II Frantzmagi Conley Work Phone: [facility] 10-23-2023 11:17-0400 Respiratory rate 18 /min II Frantz Conley Work Phone: [facility] 10-23-2023 11:17-0400 SaO2% (BldA) [Mass fraction] 98 % II Frantz Conley Work Phone: [facility] 10-23-2023 11:17-0400 Systolic blood pressure 146 mm[Hg] II Frantz Conley Work Phone: [facility] 10-23-2023 09:10-0400 Body height 157.48 cm II Frantzmagi Conley Work Phone: [facility] 10-23-2023 09:10-0400 Body weight 78.01 kg II Frantz Conley Work Phone: [facility] 09-17-2023 11:02-0400 Body height 165.1 cm II Frantzmagi Conley Work Phone: [facility] 09-17-2023 11:02-0400 Body mass index (BMI) [Ratio] 28.8 kg/m2 II Frantz Conley Work Phone: [facility] 09-17-2023 11:02-0400 Body weight 78.47 kg II Frantz Conley Work Phone: [facility] 09-17-2023 11:02-0400 Diastolic blood pressure 67 mm[Hg] II Frantz Conley Work Phone: [facility] 09-17-2023 11:02-0400 Heart rate 53 /min II Frantz Conley Work Phone: [facility] 09-17-2023 11:02-0400 Systolic blood pressure 114 mm[Hg] II Frantz Conley Work Phone: [facility] 06-20-2023 10:01-0400 Diastolic blood pressure 68 mm[Hg] Crescencio Marin DO Work Phone: [facility] 06-20-2023 10:01-0400 Heart rate 63 /min Crescencio Marin DO Work Phone: [facility] 06-20-2023 10:01-0400 Systolic blood pressure 126 mm[Hg] Crescencio Marin DO Work Phone: [facility] 06-20-2023 10:00-0400 Body height 165.1 cm Crescencio Marin DO Work Phone: [facility] 06-20-2023 10:00-0400 Body mass index (BMI) [Ratio] 30.29 kg/m2 Crescencio Marin DO Work Phone: [facility] 06-20-2023 10:00-0400 Body weight 82.56 kg Crescencio Marin DO Work Phone: [facility] 05-08-2023 10:30-0500 Body height 166.4 cm Frantz Conley MD Work Phone: [facility] 05-08-2023 10:30-0500 Body mass index (BMI) [Ratio] 29.66 kg/m2 Frantz Conley MD Work Phone: [facility] 05-08-2023 10:30-0500 Body weight 82.1 kg Frantz Conley MD Work Phone: [facility] 05-08-2023 10:30-0500 Diastolic blood pressure 66 mm[Hg] Frantz Conley MD Work Phone: [facility] 05-08-2023 10:30-0500 Heart rate 52 /min Frantz Conley MD Work Phone: [facility] 05-08-2023 10:30-0500 SaO2% (BldA) [Mass fraction] 99 % Frantz Conley MD Work Phone: [facility] 05-08-2023 10:30-0500 Systolic blood pressure 120 mm[Hg] Frantz Conley MD Work Phone: [facility] 09-28-2022 10:27-0400 Body temperature 97.8 [degF] II Frantz Conley Work Phone: [facility] 09-28-2022 10:27-0400 Body weight 81.19 kg II Frantz Conley Work Phone: [facility] 09-28-2022 10:27-0400 Diastolic blood pressure 61 mm[Hg] II Frantz Conley Work Phone: [facility] 09-28-2022 10:27-0400 Heart rate 39 /min II Frantz Conley Work Phone: [facility] 09-28-2022 10:27-0400 Respiratory rate 16 /min II Frantz Conley Work Phone: [facility] 09-28-2022 10:27-0400 SaO2% (BldA) [Mass fraction] 97 % II Frantz Conley Work Phone: [facility] 09-28-2022 10:27-0400 Systolic blood pressure 143 mm[Hg] II Frantz Conley Work Phone: [facility] 09-18-2022 10:00-0400 Body height 165.1 cm Mick Branch Other [employer] [facility] [employer] Other 09-18-2022 10:00-0400 Body mass index (BMI) [Ratio] 29.12 kg/m2 Mick Branch Other [facility] [employer] Other 09-18-2022 10:00-0400 Body weight 79.38 kg Mick Branch Other [facility] [employer] Other 09-18-2022 10:00-0400 Diastolic blood pressure 76 mm[Hg] Mick Branch Other [facility] [employer] Other 09-18-2022 10:00-0400 Systolic blood pressure 113 mm[Hg] Mick Branch Other [facility] [employer] Other 08-08-2022 13:49-0400 Body height 165.1 cm II Frantz Conley Work Phone: [facility] 09-19-2021 13:10-0400 Diastolic blood pressure 64 mm[Hg] II Frantz Conley Work Phone: [facility] 09-19-2021 13:10-0400 Heart rate 68 /min II Frantz Conley Work Phone: [facility] 09-19-2021 13:10-0400 Respiratory rate 16 /min II Frantz Conley Work Phone: [facility] 09-19-2021 13:10-0400 SaO2% (BldA) [Mass fraction] 96 % II Frantz Conley Work Phone: [facility] 09-19-2021 13:10-0400 Systolic blood pressure 119 mm[Hg] II Frantz Conley Work Phone: [facility] 09-19-2021 11:54-0400 Body height 165.1 cm II Frantz Conley Work Phone: [facility] 09-19-2021 11:54-0400 Body mass index (BMI) [Ratio] 29.9 kg/m2 II Frantz Conley Work Phone: [facility] 09-19-2021 11:54-0400 Body temperature 98.3 [degF] II Frantz Conley Work Phone: [facility] 09-19-2021 11:54-0400 Body weight 81.64 kg II Frantz Conley Work Phone: [facility] 09-13-2021 15:15-0400 Body height 165.1 cm Mick Branch Other [employer] Other 09-13-2021 15:15-0400 Body mass index (BMI) [Ratio] 29.95 kg/m2 Mick Branch Other [employer] Other 09-13-2021 15:15-0400 Body weight 81.65 kg Mick Branch Other [employer] Other 08-17-2021 12:00-0400 Body temperature 98.01 [degF] Leonard Johnson MD [facility] 08-17-2021 11:15-0400 Heart rate 69 /min Leonard Johnson MD [facility] 08-17-2021 11:15-0400 Respiratory rate 19 /min Leonard Johnson MD [facility] 08-17-2021 11:15-0400 SaO2% (BldA) [Mass fraction] 98 % Leonard Johnson MD [facility] 08-17-2021 10:00-0400 Diastolic blood pressure 80 mm[Hg] [facility] 08-17-2021 10:00-0400 Systolic blood pressure 139 mm[Hg] Leonard Johnson MD [facility] 08-16-2021 21:48-0400 Body height 165.1 cm Leonard Johnson MD [facility] 08-16-2021 21:48-0400 Body mass index (BMI) [Ratio] 30.05 kg/m2 Leonard MAHARAJ [employer] [facility] [employer] 08-16-2021 21:48-0400 Body weight 81.92 kg Leonard MAHARAJ [employer] [facility] 07-11-2021 11:45-0400 Body height 165.1 cm Mick Branch Other [employer] Other 07-11-2021 11:45-0400 Body mass index (BMI) [Ratio] 30.45 kg/m2 Mick Branch Other [employer] Other 07-11-2021 11:45-0400 Body weight 83.01 kg Mick Branch Other [employer] Other 07-11-2021 11:45-0400 Diastolic blood pressure 77 mm[Hg] Mick Branch Other [employer] Other 07-11-2021 11:45-0400 Systolic blood pressure 126 mm[Hg] Mick Branch Other [employer] Other Encounters Encounter Date Encounter Type Care Provider Facility Start: 12-25-2024 End: 12-25-2024 Clinisync Result Encounter Generic External Data Provider [facility] External Department Unsolicited Start: 12-25-2024 End: 12-25-2024 Clinisync Result Encounter Generic External Data Provider [facility] External Department Unsolicited Start: 12-25-2024 End: 12-25-2024 ambulatory Frantz Conley II Work Phone: [facility] Work Phone: Start: 12-25-2024 End: 12-25-2024 Departed Referred Rc Hernandez MD -[facility] Start: 12-07-2024 End: 12-07-2024 Clinisync Result Encounter Generic External Data Provider [facility] External Department Unsolicited Start: 12-07-2024 End: 12-07-2024 Clinisync Result Encounter Generic External Data Provider [facility] External Department Unsolicited Start: 11-11-2024 End: 11-11-2024 ambulatory Frantz Conley II Work Phone: [facility] Work Phone: Start: 11-11-2024 End: 11-11-2024 Patient encounter procedure Mick Branch MD -[facility] Work Phone: Start: 11-02-2024 End: 11-02-2024 Patient encounter procedure Mick Branch MD -Lab [facility] Work Phone: Start: 11-02-2024 End: 11-02-2024 ambulatory Frantz Conley II Work Phone: [facility] Work Phone: Start: 10-20-2024 End: 10-20-2024 Patient encounter procedure Rosanna MIRZA Work Phone: [facility] [place] [facility] Comment on above: Medicare annual well ness visit, subsequent (Primary Dx); ACP (advance care planning); Chronic insomnia; Other chronic pain; Benign essential HTN ; Benign hypertensive heart and CKD, 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), w CHF (HCC); Coronary artery disease involving qagan tayagungin coronary artery of qagan tayagungin heart without angina pectoris ; Dilatation of aorta; History of coronary artery stent placement; PVCs (premature ventricular contractions); Sinus arrhythmia; Sinus bradycardia; Abnormal LFTs; Diverticulosis of colon; Gastroesophageal reflux disease without esophagitis; 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); Cervical spondylolysis; Muscle cramps; Acquired hypothyroidism ; BMI 29.0-29.9,adult; Vitamin D deficiency; Iron deficiency anemia, unspecified iron deficiency anemia type; Pancytopenia, acquired ([facility]-HCC); Former cigarette smoker; Mixed hyperlipidemia ; Situational anxiety; Unsteadiness on feet; Esophageal varices without bleeding (HCC); Other secondary pulmonary hypertension (HCC); Grade II diastolic dysfunction Start: 10-20-2024 End: 10-20-2024 ambulatory ROSANNA DALY Not Available Start: 10-20-2024 End: 10-20-2024 Bamboo flowsheet Rosanna MIRZA Work Phone: [facility] Start: 10-20-2024 End: 10-20-2024 Bamboo flowsheet Rosanna MIRZA Work Phone: [facility] Start: 10-05-2024 End: 10-05-2024 Office outpatient visit 25 minutes Frantz Conley MD Work Phone: [facility] Comment on above: Sinus bradycardia (P rimary Dx); PVCs (premature ventricular contractions); Coronary artery disease involving qagan tayagungin coronary artery of qagan tayagungin heart without angina pectoris ; Liver cirrhosis [...] 15 minutes Crescencio Marin DO Work Phone: [facility] Comment on above: ASHD (arteriosclerot ic heart disease); History of coronary artery stent placement; PVC (premature ventricular contraction); BMI 30.0-30.9,adult; Former cigarette smoker; Hyperlipidemia, unspecified hyperlipidemia type Start: 09-08-2024 End: 09-08-2024 ambulatory [facility] Start: 05-21-2024 End: 05-21-2024 Patient encounter procedure Frantz Conley II Work Phone: [facility]Ultrasound [facility] [place] Work Phone: Start: 05-21-2024 End: 05-21-2024 ambulatory Frantz Conley II Work Phone: [facility] Work Phone: Start: 04-30-2024 End: 04-30-2024 ambulatory Frantz Conley II Work Phone: [facility] Work Phone: Start: 04-30-2024 End: 04-30-2024 Patient encounter procedure Frantz Conley II Work Phone: [facility]-Lab [facility] [place] Work Phone: Start: 04-22-2024 End: 04-22-2024 Refill Day Saturday JAILOR Work Phone: [facility] Comment on [...] Flu vaccine need; Coronary artery disease involving qagan tayagungin coronary artery of qagan tayagungin heart without angina pectoris (CMS/HCC); Mixed hyperlipidemia (CMS/HCC); Acquired hypothyroidism (CMS/HCC); Prostate cancer screening Start: 03-12-2024 End: 03-12-2024 ambulatory FRANTZ CONLEY Not Available Start: 01-01-2024 End: 01-01-2024 ambulatory [facility] Start: 01-01-2024 End: 01-01-2024 Office outpatient visit 25 minutes Crescencio Marin DO Work Phone: [facility] Comment on above: ASHD (arteriosclerot [...] / Non-visit II Montrell Conley Work Phone: [facility] Gastroenterology Work Phone: Start: 10-23-2023 End: 10-23-2023 Admission to same day surgery center II Frantz Conley Work Phone: [facility]-Digestive Health Work Phone: Start: 10-23-2023 End: 10-23-2023 ambulatory II Frantz Conley Work Phone: [facility] Work Phone: Start: 10-01-2023 End: 10-01-2023 ambulatory II Frantz Conley Work Phone: [facility] Work Phone: Start: 10-01-2023 End: 10-01-2023 Patient encounter procedure II Frantz Conley Work Phone: [facility]trasound [facility] [place] Work Phone: Start: 09-17-2023 End: 09-17-2023 ambulatory II Frantz Conley Work Phone: [facility] Work Phone: Start: 09-17-2023 End: 09-17-2023 Patient encounter procedure II Frantz Conley Work Phone: [facility]Lab [facility] [place] Work Phone: Start: 06-20-2023 End: 06-20-2023 Office outpatient visit 40 minutes Crescencio Aníbal Tomas DO Work Phone: [facility] Comment on above: ASHD (arteriosclerot ic heart disease); History of coronary artery stent placement; Ascending aorta dilation (CMS/HCC); Iron deficiency anemia, unspecified iron deficiency anemia type; PVC (premature ventricular contraction); Former cigarette smoker Start: 06-05-2023 End: 06-05-2023 ambulatory II Frantz Conley Work Phone: [facility] Work Phone: Start: 06-05-2023 End: 06-05-2023 Patient encounter procedure II Frantz Conley Work Phone: [facility] [place] Work Phone: Start: 05-08-2023 Bamboo flowsheet [...] 05-01-2023 ambulatory MD Jose Manning Work Phone: [facility] Work Phone: Start: 05-01-2023 End: 05-01-2023 Departed Referred MD Jose Manning Work Phone: [facility]-LAB Path [facility] Start: 10-04-2022 End: 10-04-2022 ambulatory II Frantz Conley Work Phone: [facility] Work Phone: Start: 10-04-2022 End: 10-04-2022 Patient encounter procedure II Frantz Conley Work Phone: [facility] [place] Work Phone: Start: 09-28-2022 End: 09-28-2022 ambulatory II Frantz Conley Work Phone: [facility] Work Phone: Start: 09-28-2022 End: 09-28-2022 Registered Recurring II Frantz Colney Work Phone: [facility]Cancer Center Work Phone: Start: 09-18-2022 End: 09-18-2022 ambulatory Mick Branch Other [employer] Other Start: 09-18-2022 Patient encounter procedure Mick Branch [facility] Start: 11-08-2021 End: 11-09-[address] KARL MENON Facility:[facility] Start: 11-06-2021 End: 11-06-2021 Patient encounter procedure II Frantz Conley Work Phone: [facility]-Respiratory Therapy Start: 10-10-2021 End: 10-10-2021 Patient encounter procedure II Frantz Conley Work Phone: [facility]-CT Scan [facility] [place] Start: 09-20-2021 End: 09-20-2021 Patient encounter procedure II Frantz Conley Work Phone: [facility]ound [facility] [place] Start: 09-19-2021 End: 09-19-2021 Admission to same day surgery center II Frantz Conley Work Phone: [facility]Dig[facility] Start: 09-15-2021 End: 09-15-2021 Patient encounter procedure II Frantz Conley Work Phone: [facility]-Pre-Surgical Testing Start: 09-13-2021 End: 09-13-2021 ambulatory Mick Branch Other [employer] Other Start: 09-13-2021 Patient encounter procedure Mick Branch [facility] Start: 08-16-2021 End: 08-17-2021 Evaluation and management of inpatient SHANTANU [facility] Start: 08-16-2021 End: 08-17-2021 Evaluation and management of inpatient Leonard Johnson MD [facility] 1 Comment on above: Subarachnoid hemorrh age following injury, no loss of consciousness, initial encounter (HCC) (Primary Dx); Facial laceration, initial encounter Start: 08-16-2021 End: 08-16-2021 ambulatory KEILY RENTERIA Facility: Start: 07-12-2021 End: 07-13-2021 ambulatory MICK BRANCH Facility: Start: 07-11-2021 End: 07-11-2021 ambulatory Mick Plascenciaadam Other [employer] Other Start: 07-11-2021 [facility] visit new patient Mick Branch [facility] Start: 03-01-2021 End: 03-01-[address] FRANTZ CONLEY Facility: Start: 02-03-2021 End: 02-03-[address] FRANTZ CONLEY Facility: Start: 10-30-2018 End: 10-31-2018 Patient encounter procedure JOSIAH SCHAFER Facility:[facility] Start: 02-28-2018 End: 03-01-2018 Patient encounter procedure INDIA ANDREA Facility:[facility] Start: 02-25-2018 End: 02-25-2018 Patient encounter procedure Hardeep Fraga Facility:[facility] Start: 02-11-2018 End: 02-11-2018 Patient encounter procedure Hardeep Fraga Facility:[facility] Procedures Date Procedure Procedure Detail Performing Clinician Start: 12-25-2024 URINE CULTURE - [facility] Generic External Data Provider Start: 12-07-2024 ALL CBC WITH AUTO DIFF Generic External Data Provider Start: 10-01-2024 ALL BASIC METABOLIC PANEL Generic Gore Seamer al Data Provider Start: 10-01-2024 ALL LIPID [...] Author Start: 04-29-2028 Lipid panel Lipid Panel [facility] Start: 10-20-2025 Medicare Annual Wellness (AWV) Medicare Annual Wellness (AWV) [facility] Start: 09-14-2025 End: 09-14-2025 Patient encounter procedure 09/14/2025 2:00 PM EDT Office Visit [facility] [address] [place] [address] [address] [place] [address] Crescencio Marin DO [address] [place] [address] 2, [address] [place] [address] [facility] Start: 12-25-2024 Bacteria identified in Urine by Culture Urine Culture [facility] Start: 12-25-2024 Urine culture [facility] Start: 12-07-2024 End: 12-07-2024 Patient encounter procedure [facility] Start: 11-23-2024 Influenza vaccination Influenza Vaccine (#1) [facility] Start: 10-20-2024 Medicare Annual Wellness (AWV) Medicare Annual Wellness (AWV) [facility] Start: 10-20-2024 End: 10-20-2024 Patient encounter procedure [facility] Comment on above: Arrived Start: 10-05-2024 End: 10-05-2024 Patient encounter procedure 10/05/2024 11:00 AM EDT Office Visit [facility] [address] [place] [address] Frantz Conley MD [address] [place] [address] [facility] Start: 09-08-2024 End: 09-08-2024 Patient encounter procedure 09/08/2024 3:00 PM EDT Office Visit [facility] [address] [place] [address] Crescencio Marin DO [address] [place], [place] [id number] [facility] Start: 09-08-2024 End: 09-08-2025 Alanine aminotransferase [Enzymatic activity/volume] in Serum or Plasma by With P-5'-P Alanine Aminotransferase Lab Routine ASHD (arteriosclerotic heart disease) Hyperlipidemia, unspecified hyperlipidemia type Expected: 09/08/2024 (Approximate), Expires: 09/08/2025 [facility] Service Area Work Phone: Comment on above: Expected: 09/08/2024 (Approximate), Expi res: 09/08/2025 Start: 09-08-2024 End: 09-08-2025 Aspartate aminotransferase [Enzymatic activity/volume] in Serum or Plasma by With P-5'-P Aspartate Aminotransferase Lab Routine ASHD (arteriosclerotic heart disease) Hyperlipidemia, unspecified hyperlipidemia type Expected: 09/08/2024 (Approximate), Expires: 09/08/2025 [facility] Work Phone: Comment on above: Expected: 09/08/2024 (Approximate), Expi res: 09/08/2025 Start: 09-08-2024 End: 09-08-2025 Basic metabolic 2000 panel - Serum or Plasma Basic Metabolic Panel Lab Routine ASHD (arteriosclerotic heart disease) PVC (premature ventricular contraction) Expected: 09/08/2024 (Approximate), Expires: 09/08/2025 [facility] Work Phone: Comment on above: Expected: 09/08/2024 (Approximate), Expi res: 09/08/2025 Start: 09-08-2024 End: 09-08-2025 Lipid 1996 panel - Serum or Plasma Lipid Panel Lab Routine ASHD (arteriosclerotic heart disease) Hyperlipidemia, unspecified hyperlipidemia type Expected: 09/08/2024 (Approximate), Expires: 09/08/2025 [facility] Work Phone: Comment on above: Expected: 09/08/2024 (Approximate), Expi res: 09/08/2025 Start: 04-30-2024 [id number]-[id number].tumor marker [Mass/volume] in Serum or Plasma [facility] Start: 03-12-2024 End: 03-12-2025 Lipid 1996 panel - Serum or Plasma Lipid panel Lab Routine Mixed hyperlipidemia (CMS/HCC) Expected: 03/12/2024 (Approximate), Expires: 03/12/2025 [facility] Comment on above: Expected: 03/12/2024 (Approximate), Expi res: 03/12/2025 Start: 03-12-2024 End: 03-12-2025 TSH W/REFLEX TO FT4 TSH W/REFLEX TO FT4 Lab Routine Acquired hypothyroidism (CMS/HCC) Expected: 03/12/2024 (Approximate), Expires: 03/12/2025 [facility] Comment on above: Expected: 03/12/2024 (Approximate), Expi res: 03/12/2025 Start: 03-12-2024 End: 03-12-2024 Patient encounter procedure [facility] Comment on above: Arrived Start: 12-25-2023 End: 12-25-2023 Patient encounter procedure 12/25/2023 10:20 AM EDT Office Visit [facility] [address] [facility] [address] [place] [id number] Crescencio Marin DO [address] [facility] [address], [address] [place] [address] [facility] Start: 11-24-2023 COVID-19 Vaccine ( season) COVID-19 Vaccine () [facility] Start: 11-24-2023 COVID-19 Vaccine () COVID-19 Vaccine () [facility] Start: 11-24-2023 Influenza vaccination Influenza Vaccine (#1) [facility] Start: 11-06-2023 End: 11-06-2023 Patient encounter procedure 11/06/2023 11:00 AM EDT Office Visit [facility] [address] [facility] [address] [place] [address] Frantz Conley MD [address] [facility] [address] [place] [address] [facility] Start: 10-23-2023 [facility] Start: 10-21-2023 End: 10-21-2023 Patient encounter procedure 10/21/2023 11:00 AM EDT Office Visit [facility] [address] [facility] [address] [place] [address] Frantz Conley MD [address] [facility] [address] [place] [address] [facility] Start: 09-17-2023 [id number]-3-gkzlwcnduoi.tumor marker [Mass/volume] in Serum or Plasma [facility] Start: 08-23-2023 Medicare Annual Wellness (AWV) Medicare Annual Wellness (AWV) [facility] Start: 06-26-2023 End: 06-26-2023 Professional / ancillary services management 06/26/2023 10:00 AM EDT Ancillary Procedure [facility] [address] [facility] [address] [place] [address] [facility] Start: 06-20-2023 End: 06-19-2024 Holter monitor study Holter Or [employer] [facility] Routine PVC (premature ventricular contraction) Expected: 06/20/2023 (Approximate), Expires: 06/19/2024 [facility] Service Area Work Phone: Comment on above: Expected: 06/20/2023 (Approximate), Expi res: 06/19/2024 Start: 06-10-2023 End: 06-10-2023 Patient encounter procedure 06/10/2023 10:30 AM EDT Office Visit [facility] [address] [place] [address] Frantz Conley MD [address] [place] [address] [facility] Start: 05-08-2023 End: 05-08-2024 US Abdomen limited [facility] Work Phone: Comment on above: Expected: 05/08/2023, Expires: 5 Start: 05-08-2023 End: 05-08-2023 Patient encounter procedure 05/08/2023 10:30 AM EST Office Visit [facility] [address] [place] [address] Frantz Conley MD [address] [place] [address] Arrived [facility] Comment on above: Arrived Start: 11-23-2022 COVID-19 Vaccine ( season) COVID-19 Vaccine ( season) [facility] Start: 11-08-2022 Echocardiography Echocardiogram [facility] Start: 05-01-2022 Lipid panel Lipids [facility] Start: 09-19-2021 [facility] Work Phone: Start: 08-24-2021 End: 08-17-2022 CT HEAD WO CONTRAST CT HEAD WO CONTRAST Imaging Routine Subarachnoid hemorrhage following injury, no loss of consciousness, initial encounter (HCC) Expected: 08/24/2021, Expires: 08/17/2022 [facility] [employer] [facility] Work Phone: Comment on above: Expected: 08/24/2021, Expires: Start: 2021 RSV High Risk: (Elderly (60+) or Population) (1 - 1-dose 75+ series) RSV High Risk: (Elderly (60+) or Population) (1 - 1-dose 75+ series) [facility] Start: 09-30-2019 Pneumococcal 65+ years Vaccine (2 - PCV) Pneumococcal 65+ years Vaccine (2 - PCV) [facility] Start: 09-30-2019 Pneumococcal vaccination Pneumococcal Vaccine (2 of 2 - PCV) [facility] Start: 09-30-2019 Pneumococcal Vaccine: 65+ Years (2 - PCV) Pneumococcal Vaccine: 65+ Years (2 - PCV) [facility] Start: 09-30-2019 Pneumococcal Vaccine: 65+ Years (2 of 2 - PCV) Pneumococcal Vaccine: 65+ Years (2 of 2 - PCV) [facility] Start: 2006 Hepatitis B Vaccines (1 of 3 - Risk 3-dose series) Hepatitis B Vaccines (1 of 3 - Risk 3-dose series) [facility] Start: 2006 RSV patients and/or patients aged 60+ years (1 - 1-dose 60+ series) RSV patients and/or patients aged 60+ years (1 - 1-dose 60+ series) [facility] Start: 07-31-1991 Screening for malignant neoplasm of colon [facility] Start: 1968 DTaP/Tdap/Td Vaccines (1 - Tdap) DTaP/Tdap/Td Vaccines (1 - Tdap) [facility] Start: 1965 DTaP/Tdap/Td vaccine (1 - Tdap) DTaP/Tdap/Td vaccine (1 - Tdap) [facility] Start: 1965 Hepatitis A Vaccines (1 of 2 - Risk 2-dose series) Hepatitis A Vaccines (1 of 2 - Risk 2-dose series) [facility] Start: 1964 Diabetes mellitus screening Diabetes Screening [facility] Start: 1964 Hepatitis C screening [facility] Start: 1958 Depression Screen Depression Screen [facility] Start: 1946 Creatinine measurement Creatinine Level [facility] Start: 1946 Medicare Annual Wellness Visit Medicare Annual Wellness Visit (AWV) [facility] Start: 1946 Potassium measurement Potassium Level [facility] Start: 1946 Thyroid stimulating hormone measurement TSH Level [facility] Oxygen therapy [[facility] Data Set] Initiate Oxygen Therapy Protocol Respiratory Care Routine As Needed until discontinued starting 08/16/2021 [employer] Work Phone: Comment on above: As Needed until discontinued starting Patient Education Hemorrhoids Co ross polyps Esophageal varices Diverticulosis Know your Meds [facility] Work Phone: Prostate specific Ag [Mass/volume] in Serum or Plasma PSA Lab Routine Prostate cancer screening Ordered: 03/12/2024 [facility] [employer] Work Phone: Comment on above: Ordered: 03/12/2024 End: 08-16-2021 Speech and language therapy regime Speech language pathology evaluation [employer] Routine One Time for 1 Occurrences starting 08/16/2021 until 08/16/2021 [employer] Work Phone: Comment on above: One Time for 1 Occurrences starting 07/24 until 08/16/2021 URINE CULTURE - [facility] URINE CULTU RE - [facility] Lab Routine 12/25/2024 2:15 AM EDT [facility] US Abdomen limited [facility] Immunizations Immunization Date Immunization Notes Care Provider Fa [facility] 03-12-2024 Influenza, High-dose Seasonal, Quadrivalent, Preservative Free Frantz Conley MD Work Phone: [facility] 03-12-2024 influenza virus vacc ine, unspecified formulation Generic Provider [facility] 12-15-2023 influenza, high dose seasonal, preservative-free Generic Provider [facility] 01-04-2023 Influenza, Seasonal, Quadrivalent, Adjuvanted Frantz Conley MD Work Phone: [facility] 01-04-2023 influenza virus vacc ine, unspecified formulation Generic Provider [facility] 03-21-2022 Influenza, High-dose Seasonal, Quadrivalent, Preservative Free Frantz Conley MD Work Phone: [facility] Work Phone: 03-01-2021 COVID-19 Ad26.COV2.S (Caleb) II Frantz Conley Work Phone: [facility] 01-06-2021 influenza, high dose seasonal, preservative-free Frantz Conley MD Work Phone: [facility] 01-06-2021 Influenza, High-dose Seasonal, Quadrivalent, Preservative Free Frantz Conley MD Work Phone: [facility] 05-26-2020 COVID-19 mRNA-1273 (Moderna) II Frantz Conley Work Phone: [facility] 04-28-2020 COVID-19 mRNA-1273 (Moderna) II Frantz Conley Work Phone: [facility] 01-06-2020 Influenza, High-dose Seasonal, Quadrivalent, Preservative Free Frantz Conley MD Work Phone: [facility] 08-18-2019 zoster vaccine recombinant Frantz Conley MD Work Phone: [facility] 04-10-2019 zoster vaccine recombinant Frantz Conley MD Work Phone: [facility] 02-06-2019 influenza, high dose seasonal, preservative-free Frantz Conley MD Work Phone: [facility] 09-29-2018 pneumococcal polysaccharide vaccine, 23 valent Frantz Conley MD Work Phone: [facility] 01-14-2018 Influenza, High-dose Seasonal, Quadrivalent, Preservative Free Frantz Conley MD Work Phone: [facility] 12-03-2016 Influenza, High-dose Seasonal, Quadrivalent, Preservative Free Frantz Conley MD Work Phone: [facility] 03-28-2015 influenza, seasonal, injectable, preservative free Frantz Conley MD Work Phone: [facility] 01-10-2015 seasonal influenza, intradermal, preservative free Frantz Conley MD Work Phone: [facility] Payers Date Payer Category Payer [employer] ( and others) [id number] 2024 Self-pay [id number] 2023 For Life (TFL) [employer] [id number] 2022 [employer] ( and others) [id number] 2022 () [id number] 2015 [employer] ( and others) [id number] 2011 Medicare [id number] 1959 [employer] ( and others) [id number] 1959 Medicare [id number] 1946 Unknown [id number] 2.16.840.1.767632.3.579.2 .727 1946 Unknown [id number] 2.16.840.1.114933.3.579.2 .727 1946 Unknown [id number] 2.16.840.1.877898.3.579.2 .647 1946 Unknown [id number] 2.16.840.1.538608.3.579.2 .647 1946 Unknown [id number] 2.16.840.1.222500.3.579.2 .175 1946 Unknown [id number] 2.16.840.1.635549.3.579.2 .593 1946 Unknown [id number] 2.16.840.1.589046.3.579.2 .593 1946 Unknown [id number] 2.16.840.1.430974.3.579.2 .593 1946 Unknown [id number] 2.16.840.1.593609.3.579.2 .593 1946 Unknown [id number] 2.16.840.1.403769.3.579.2 .593 1946 Unknown [id number] 2.16.840.1.381807.3.579.2 .1244 1946 Unknown [id number] 2.16.840.1.556029.3.579.2 .1244 1946 Unknown [id number] 2.16.840.1.142895.3.579.2 .1259 1946 Unknown [id number] 2.16.840.1.791310.3.579.2 .1259 1946 Unknown [id number] 2.16.840.1.570061.3.579.2 .1259 Unknown [id number] 2.16.840.1.220216.3.579.2 .531 Unknown [id number] 2.16.840.1.080935.3.579.2 .531 Unknown [id number] 2.16.840.1.125505.3.579.2 .531 Social History Date Type Detail Facility Start: 08-16-2021 Tobacco smoking status NHIS Tobacco smoking consumption unknown [employer] Start: 08-16-2021 End: 09-08-2024 Alcohol intake Lifetime non-drinker (finding) Provender Phone: Start: 08-16-2021 History SDOH Alcohol Frequency 1 Provender Phone: Start: 1945 Sex Assigned At Not on file Provender Phone: Start: 08-06-2021 End: 01-01-2024 Exposure to SARS-CoV-2 (event) Not sure Provender Phone: Start: 04-15-2023 End: 10-20-2024 Sex Assigned At [facility] Start: 05-10-2021 End: 10-23-2023 Tobacco smoking status NHIS Never smoked tobacco (finding) [facility] Start: 1945 Sex Assigned At Male [facility] Start: 08-16-2022 End: 01-01-2024 Tobacco [...] to any clubs or organizations such as jehovah's witness groups, unions, fraternal or athletic groups, or school groups? Yes [facility] Are you now , , , , never or living with a partner? [facility] How often to you hav e a drink containing alcohol? Never [facility] (I/We) worried wheth er (my/our) food would run out before (I/we) got money to buy more. Never true [facility] Start: 08-20-2022 Alcohol Comment caffeine intake: 1-2 cups per day. [facility] Start: 06-20-2023 End: 01-01-2024 Tobacco smoking status NHIS Ex-smoker [facility] Work Phone: End: 03-25-2003 History of tobacco use Current smoker [facility] Work Phone: End: 03-25-2003 History of tobacco use Cigarette Smoker [facility] Work Phone: Start: 06-29-2023 Gender identity Identifies as male gender (finding) [facility] Work Phone: Start: 06-29-2023 Sexual orientation Heterosexual (finding) [facility] Work Phone: Start: 05-01-2024 Sex Patient sex unknown (finding) [facility] Start: 05-22-2024 Sex Male (finding) [facility] Goals Date Patient Goal Desired Activity /State Functional Status Date Assessment Result Facility 10-20-2024 Patient Health Quest ionnaire 2 item (PHQ-2) [Reported] [facility] 10-05-2024 Patient Health Quest ionnaire 2 item (PHQ-2) [Reported] [facility] Clinical Notes 05-23-2021 to 11-11-2024 Note Date & Type Note Facility 11-11-2024 Evaluation note Diagnosis Onset Date Resolution Cirrhosis, nonalcoholic acute A ugust 2024 1:26pm Esophageal varices acute November 11, 2024 1:26pm GAVE (gastric antral vascular ectasia) acute November 11, 025 1:26pm Iron deficiency anemia acute Au 2024 1:26pm Metabolic dysfunction-associated steatohepatitis (MASH) acute November 112024 1:26pm Metabolic dysfunction-associated steatotic liver disease (MASLD) acute November 11 1:26pm Pancytopenia, acquired chronic 2024 1:26pm [facility] Work Phone: 1(974) 701-878107-29-2025 History of Present illness Narrative* HERMES Campa - 10/20/2024 2:30 PM EDT Images from the original note were [...] Do you have a medical power of sports attorney?: Yes Current Outpatient Medications on File Prior to Visit Medication Sig Dispense Refill Ferrous Gluconate (iron) 240 (27 Fe) MG tablet Take 1 tablet by mouth Daily [DISCONTINUED] ferrous sulfate 325 (65 Fe) MG tablet Take 325 mg by mouth in the morning. Take withmeals. atorvastatin (Lipitor) 20 MG tablet Take 1 tablet (20 mg) by mouth at bedtime 90 tablet 3 clopidogrel (Plavix) 75 MG tablet Take 1 tablet (75 mg) by mouth Daily 90 tablet 3 levothyroxine (Synthroid) 88 MCG tablet TAKE 1 TABLET DAILY (DECREASED) 100 tablet 3 Multiple Vitamins-Minerals (ONE DAILY ADULTS 50+ PO) Take 1 tablet by mouth 1 (one) time each day. Garland-3 Fatty Acids (Fish Oil) 1000 MG capsule [...] HTN The patient is seeing a medical apparatus model maker for this condition, treatment is deferred to that specialist. Correspondence from that specialist and any available testing were reviewed during today's visit. 6. 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 Correspondence from that specialist and any available testing were reviewed during today's visit. 7. Coronary artery disease involving qagan tayagungin coronary artery of qagan tayagungin heart without angina pectoris The patient is seeing a medical apparatus model maker for this condition, treatment is deferred to that specialist. Correspondence from that specialist and any available testing were reviewed during today's visit. 8. Dilatation of aorta The patient is seeing a medical apparatus model maker for this condition, treatment is deferred to that specialist. Correspondence from that specialist and any available testing were reviewed during today's visit. 9. History of coronary artery stent placement The patient is seeing a medical apparatus model maker for this condition, treatment is deferred to that specialist. Correspondence from that specialist and any available testing were reviewed during today's visit. 10. PVCs (premature ventricular contractions) The patient is seeing a medical apparatus model maker for this condition, treatment is deferred to that specialist. Correspondence from that specialist and any available testing were reviewed during today's visit. 11. Sinus arrhythmia The patient is seeing a medical apparatus model maker for this condition, treatment is deferred to that specialist. Correspondence from that specialist and any available testing were reviewed during today's visit. 12. Sinus bradycardia The patient is seeing a medical apparatus model maker for this condition, treatment is deferred to that specialist. Correspondence from that specialist and any available testing were reviewed during today's visit. 13. Abnormal LFTs The patient is seeing a medical apparatus model maker for this condition, treatment is deferred to that specialist. Correspondence from that specialist and any available testing were reviewed during today's visit. 14. Diverticulosis of colon The patient is seeing a medical apparatus model maker for this condition, treatment is deferred to that specialist. Correspondence from that specialist and any available testing were reviewed during today's visit. 15. Gastroesophageal reflux disease without esophagitis The patient is seeing a medical apparatus model maker for this condition, treatment is deferred to that specialist. Correspondence from that specialist and any available testing were reviewed during today's visit. 16. 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 Correspondence from that specialist and any available testing were reviewed during today's visit. 23. Pancytopenia, acquired (CMS-HCC) The patient is seeing a medical apparatus model maker for this condition, treatment is deferred to [...] (HCC) The patient is seeing a medical apparatus model maker for this condition, treatment is deferred to that specialist. Correspondence from that specialist and any available testing were reviewed during today's visit. 29. Other secondary pulmonary hypertension (HCC) The patient is seeing a medical apparatus model maker for this condition, treatment is deferred to that specialist. Correspondence from that specialist and any available testing were reviewed during today's visit. 30. Grade II diastolic dysfunction The patient is seeing a medical apparatus model maker for this condition, treatment is deferred to that specialist. Correspondence from that specialist and any available testing were reviewed during today's visit. Follow up for Appointment As Scheduled. VALDEZ RouseC documented in this encounterFreeman Health [id number] History of Present illness Narrative* Frantz Conley MD - 10/05/2024 11:00 AM EDT Images from the original note [...] by mouth 1 (one) time each day. Garland-3 Fatty Acids (Fish Oil) 1000 MG capsule [...] a pacemaker at some point but that's notnecessary presently. 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 - This office visit was spent in consultation regarding the patient's current medical problems, differential diagnoses, testing/imaging results, and treatment options. Greater than 25 minutes was spent in [id number]-[id number] consultation and coordination of care. Follow up in about 2 months (around 12/06/2024) for Recheck. documented in this encounterFreeman Health [id number] History of Present illness Narrative* Crescencio Marin, DO - 09/08/2024 3:00 PM EDT Chief Complaint Patient presents with Follow-up 8 month visit for cad. Subjective Pankaj Payne is a 79 y.o. male 79-year-old gentleman returns for 8-month cardiovascular follow-up and doing well from a cardiovascular standpoint. He has no limitations, no unsteady gait, no recurrent falls or trauma, denies angina or nitrate usage or hospitalizations. He is otherwise doing well from a cardiovascular standpoint w ith ongoing PVCs, PACs and pauses, evident on last year's Holter monitoring and on exam. He has a prior anterolateral myocardial infarction. Patient has known history of ASHD with PCI of the ostial/proximal circumflex at [facility] he says around 4+ years ago and IFR assessmentof the PLV branch which was negative. He has a history of iron deficiency anemia, history of subarachnoid hemorrhage July 2021, history ofcirrhosis, history of GI bleeding. Review of Systems [...] tablet 1 tablet, Daily fish oil concentrate (Garland-3) 120-180 mg capsule 1,000 mg, Daily levothyroxine [...] exam, discussion and plan. documented in this [facility] Work Phone: 1([phone]) 855-570206-17-2025 Instructions* Patient Instructions* Kina Mcduffie RN - 09/08/2024 3:00 PM [...] instructions on dietary changes. documented in this [facility] Work Phone: 1(437) 981-223202-27-2025 [facility] [place] [address] [place] [address] Ultrasound Report Signed Patient: Pankaj Payne MR#: [id number] : 1945 Acct:[id number] Age/Sex: 78 / M ADM Date: 5 Loc: Room: Type: [facility] Attending Dr: Mick Branch MD Ordering Provider: [...] MASS.. Impression dictated by: Kartik Claros Jr., D.OKita05/21/2024 10:23 AM Dictation Location: [place] [address] Tech: Lizzy Llanes Transcribed By: USMAN 05/21/24 1023 Dictated By: Kartik Claros Jr, DO 05/21/24 1022 Signed By: 05/21/24 [facility]3 [facility]02-06-2025 Evaluation note* Diagnosis Onset Date Resolution Status Admit Date Cirrhosis, nonalcoholic acute F ebruary 2024 12:56pm Esophageal varices acute Februa ry 2024 12:56pm GAVE (gastric antral vascula r ectasia) acute April 30 12:56pm Iron deficiency anemia acute Fe bruary 2024 12:56pm Metabolic dysfunction-associated steatohepatitis (MASH) acute April 30, 2024 12:56pm Metabolic dysfunction-associated steatotic liver disease (MASLD) acute April 30, 2024 12:56pm Pancytopenia, acquired chronic Fe bruary 2024 12:56pm [facility] Work Phone: [phone]) 565-245112-19-2024 History of Present illness Narrative* Frantz Conley [...] by mouth 1 (one) time each day. Garland-3 Fatty Acids (Fish Oil) 1000 MG capsule [...] need - Influenza, high-dose seasonal, quadrivalent, PF (RDU777) (Fluzone High Dose Quad North 0.7mL dose) Coronary artery disease involving qagan tayagungin coronary artery of qagan tayagungin heart without angina pectoris (CMS/HCC) - The patient is experiencing no symptoms from this condition currently, it is considered medicallycontrolled and no change in current therapies are planned. Mixed hyperlipidemia (CMS/HCC) - Lipid panel; Future Acquired hypothyroidism (CMS/HCC) - TSH W/REFLEX TO FT4; Future Prostate cancer screening - PSA Follow up in about 6 months (around 09/10/2024) for Wellness. documented in this encounterFreeman Health [id number] History of Present illness Narrative* Crescencio Marin, [...] with PCI of the ostial/proximal circumflex at [facility] he says around 3 years ago and [...] daily., Disp: , Rfl: fish oil concentrate (Garland-3) 120-180 mg capsule, Take 1 capsule (1,000 [...] exam, discussion and plan. documented in [facility]University [facility] Work Phone: 1(100) 500-710810-09-2024 Instructions* Patient Instructions* Shawna Flores RN - [...] Provided instructions on exercise. documented in this encounterUniversity [facility] Work Phone: 1(854) 479-650807-31-2024 Procedure noteUniversity [facility]03-[facility] History of Present illness Narrative* Crescencio Marin DO - 06/20/2023 10:00 AM EDT Cardiology [...] with PCI of the ostial/proximal circumflex at [facility] he says around 3 years ago and [...] bedtime., Disp: , Rfl: fish oil concentrate (Garland-3) 120-180 mg capsule, Take 1 capsule (1,000 [...] exam, discussion and plan. documented in this encounterUniversity [facility] Work Phone: 1([phone]) 586-481803-28-2024 Instructions* Patient Instructions* Bernadette Santillan LPN - [...] Provided instructions on exercise. documented in this [facility] Work Phone: 1([phone]) 864-157102-14-2024 History of Present illness Narrative* Frantz Conley MD - 05/08/2023 10:30 AM EST Subjective Patient ID: Pankaj Payne is a 77 y.o. male who presents for Follow-up ([facility] stay: admitted 04/30/23 dx: anemia discharged home 05/01/23 follow up with hematology was 05/07/23) and Anemia. Flowsheet Row Telephone from 05/03/2023 in [facility] with Frantz Conley MD Discharge Information ED or Hospital Discharge? Hospital Patient has been contacted within two business days of discharge Yes Discharge Date 05/01/23 Discharge Hospital [facility] Discharged To: Home Setting Engagement Call [...] by mouth 1 (one) time each day. Garland-3 Fatty Acids (Fish Oil) 1000 MG capsule [...] was discussed with Dr Sevilla, Hematology at [facility], he is following the patient and did see himin the hospital. Iron deficiency anemia, unspecified iron deficiency anemia type - Ambulatory referral to Gastroenterology; Future Other cirrhosis of liver (CMS/HCC) - US LIVER; Future Fatty liver disease, nonalcoholic - US LIVER; Future Hyperchylomicronemia (CMS/HCC) Follow up in about 4 weeks (around 06/05/2023) for Test/Lab Review. documented in this encounterFreeman Health [id number] Evaluation note* Encounter Date Diagnosis Assessment Notes Treatment Notes Treatment Clinical Notes Aug, Cirrhosis (ICD-10 - K74.60) Dr. Conley (PCP) will order lab work Repeat fibroscan in 2024 Rto 1 yr Aug, NAFLD (nonalcoholic fatty liver disease) (ICD-10 - K76.0) Aug, PLASCENCIA (nonalcoholic steatohepatitis) (ICD-10 - K75.81) [employer] Other 05-17-2023 Consult note Author Zolia Castorena [facility] August 08, 2022 3:09pm Note Date/Time August 08, 2022 2:08p m [facility] at [address] [address] Hem/Onc Consult Note - OP Signed Patient: Pankaj Payne MR#: [id number] : 1945 Acct:[id number] Age/Sex: 77 / M Type: REG RCR [...] smoking cigars while he was in the [employer] but was not a regular cigarette smoker. [...] PO QAM 04/26/21 [History Confirmed 08/08/22] omega 1-bwr-fel-fish oil 1,000 mg (120 mg-180 mg) capsule [...] for coordination of care (as documented) and yuoj-wt-rgxo counseling of patient and/or family. Dictated By: Zoila Castorena MD DD/ [id number] Signed By: <Electronically signed by MD Zoila Castorena> 08/08/22 1280 [facility] Work Phone: 1(674) 121-389106-22-2022 Evaluation note* Encounter Date Diagnosis Assessment Notes Treatment Notes Treatment Clinical Notes Aug, Fatty liver (ICD-10 - K76.0) ENCOURAGED WATCHING DIET, EXERCISE AND WEIGHT LOSS. WILL NEED TO MONITOR IMAGING EVERY 6 MONTHS. PROCEED WITH EGD Aug, Other cirrhosis of liver (ICD-10 - K74.69) Aug, NAFLD (nonalcoholic fatty liver disease) (ICD-10 - K76.0) Aug, PLASCENCIA (nonalcoholic steatohepatitis) (ICD-10 - K75.81) [employer] Other 05-26-2022 Hospital Discharge instructions* Instructions* Pato Grissom APRN - LOW - 08/17/2021 Images from [...] called to the trauma nurse line at [phone] and please leave a message. Trauma is [...] Injury Discharge Instructions Thank you for choosing [facility] and [facility] for your recovery needs. The following instructions will help to ensure your comfort and that you are wellprepared for your recovery. Follow-up Visit: The office is located at: [facility] [address], [address], [place] [address] [x] Please have a CT scan of your head done prior to this appointment. Please also call your primary care physician to schedule an appointment for further evaluation and care. You can obtain CT head closer to home and have them electronically send the imaging to [facility] so we can see the scan You can follow up with Neurosurgery closer to home of you can do virtual visit with Porsche the outpatient AUDIO VISUAL PROJECT MANAGER Ok to restart your ASPIRIN today 08/17 [...] medications. YOU SHOULD CALL THE OFFICE AT [phone] IF YOU HAVE ANY OF THE FOLLOWING: [...] the emergency department. 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 [...] AM-PAC Inpatient Mobility Raw Score : 24 (08/17/211347) AM-PAC Inpatient T-Scale Score : 61.14 (08/17/211347) Mobility [...] 08/17/2021 1:06 PM EDT Occupational Therapy Facility/Department: [facility] 1 Occupational Therapy Initial Assessment Name: Pankaj [...] Ambulation Assistance: Independent Transfer Assistance: Independent Active Presiding Judge: Yes 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 HISTORY: ORDERING SYSTEM PROVIDED HISTORY[facility] TECHNOLOGIST PROVIDED HISTORY: SAH and SDH Decision [...] SYSTEM PROVIDED HISTORY: Impact with object riding technical instructor course developer TECHNOLOGIST PROVIDED HISTORY: Impact with object riding technical instructor course developer Decision Support Exception - unselect if not [...] Active Problem List Diagnosis SAH (subarachnoid hemorrhage) ([facility]) Assessment/Plan: See most recent progress note documented in this encounterBON [facility] Phone: 1([phone]) 740-816404-19-2022 Evaluation note* Encounter Date Diagnosis Assessment Notes Treatment Notes Treatment Clinical Notes Jun, Cirrhosis (ICD-10 - K74.60) [employer] Other 03-01-2022 History general Narrative - Reported* Type Description Date Surgical History cholecystectomy 05/2021 Surgical History heart stent Surgical History cataracts, bilaterally [employer] Other 03-01-2022 History general Narrative - Reported* Type Description Date Surgical History cholecystectomy 05/2021 Surgical History heart stent Surgical History cataracts, bilaterally Hospitalization History see surgical hx [facility] [employer] Other Evaluation note* Diagnosis SAH (subarachnoid hemorrhage) (HCC)- Primary Subarachnoid hemorrhage Subarachnoid hemorrhage following injury, no loss of consciousness, initial encounter (HCC) Facial laceration, initial encounter Subdural hematoma (HCC) Subdural hemorrhage documented in this encounter [facility] Work Phone: evaluation noteNo assessment information available [facility] Work Phone: Evaluation note* Diagnosis Onset Date Resolution Status 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 Pancytopenia, acquired chron ic [facility] Work Phone: Evaluation note* Diagnosis Pancytopenia, acquired (CMS/HCC)- Primary Pancytopenia Iron deficiency anemia, unspecified iron deficiency anemia type Other cirrhosis of liver (CMS/HCC) Fatty liver disease, 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 in this encounter [facility]* Diagnosis ASHD (arteriosclerotic heart disease) Coronary atherosclerosis of unspecified type of vessel, qagan tayagungin or graft History of coronary artery stent placement Ascending aorta dilation (CMS/HCC) Thoracic aneurysm without mention of rupture Iron deficiency anemia, unspecified iron deficiency anemia type PVC (premature ventricular contraction) Other premature beats Former cigarette smoker Personal history of tobacco use, presenting hazards to health documented in this encounter [facility] Work Phone: Evaluation note* Diagnosis Onset Date Resolution Status Cirrhosis, nonalcoholic acut e Non-alcoholic fatty liver disease acute Nonalcoholic steatohepatitis (PLASCENCIA) acute [facility] Work Phone: Evaluation note* Diagnosis ASHD (arteriosclerotic heart disease) Coronary atherosclerosis of unspecified type of vessel, qagan tayagungin or graft PVC (premature ventricular contraction) Other premature beats History of coronary artery stent placement Former cigarette smoker Personal history of tobacco use, presenting hazards to health BMI 29.0-29.9,adult Bradycardia Other specified cardiac dysrhythmias documented in this encounter [facility] Work Phone: Evaluation note* Diagnosis Benign essential HTN (CMS/HCC)- Primary Flu vaccine need Coronary artery disease involving qagan tayagungin coronary artery of qagan tayagungin heart without angina pectoris (CMS/HCC) Mixed hyperlipidemia (CMS/HCC) Mixed hyperlipidemia Acquired hypothyroidism (CMS/HCC) Unspecified hypothyroidism Prostate cancer screening Special screening for malignant neoplasm of prostate documented in this encounter [facility]* Diagnosis Mixed hyperlipidemia (CMS/HCC)- Primary Mixed hyperlipidemia documented in this encounter [facility]* Diagnosis ASHD (arteriosclerotic heart disease) Coronary atherosclerosis of unspecified type of vessel, qagan tayagungin or graft History of coronary artery stent placement PVC (premature ventricular contraction) Other premature beats BMI 30.0-30.9,adult Former cigarette smoker Personal history of tobacco use, presenting hazards to health Hyperlipidemia, unspecified hyperlipidemia type documented in this encounter [facility] Work Phone: Evaluation note* Diagnosis Sinus bradycardia- Primary Other specified cardiac dysrhythmias PVCs (premature ventricular contractions) Other premature beats Coronary artery disease involving qagan tayagungin coronary artery of qagan tayagungin heart without angina pectoris 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) documented in this encounter [facility] Healthcare[facility] note* Diagnosis Medicare annual wellness visit, subsequent- Primary ACP (advance care planning) Other specified counseling Chronic insomnia Insomnia, unspecified Other chronic pain Benign essential HTN Benign hypertensive heart and CKD, 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), w CHF (HCC) Coronary artery disease involving qagan tayagungin coronary artery of qagan tayagungin heart without angina pectoris Dilatation of aorta [...] II diastolic dysfunction documented in this encounter [facility] HealthcareEvaluation note* Diagnosis Onset Date Resolution Status Admit Date Cirrhosis, nonalcoholic acute A ugust 2024 1:26pm Esophageal varices acute November 11, 2024 1:26pm Metabolic dysfunction-associ ated steatohepatitis (MASH) acute November 112024 1:26pm [facility] Work Phone: History and physical note Author Mick Branch [facility] October 23, 2023 10:14am Note Date/Time October 23, 2023 10:1 4am [facility] [address] [place] [address] Gastroenterology H&P Signed Patient: Pankaj Payne MR#: [id number] : 1945 Acct:[id number] Age/Sex: 78 / M Adm Date: 4 [...] signed by Mick Branch MD> 10/23/23 1014 [facility] Work Phone: Hospital Discharge instructions Additional [...] NOT operate machinery such as power tools, [place] mowers, snow [employer] - Onvelopwers, sewing machines, etc. for 24 hours. - [...] NOT operate machinery such as power tools, [place] mowers, Data[employer]wers, sewing machines, etc. for 24 hours. - [...] cancer screening. -Continue to follow with your fast food delivery driver Dr. Sevilla. -Notify the doctor if you have any problems. -Follow up with PCP. - Office number [phone].[facility] Work Phone: reason for referral (narrative)* Consultation (Routine) - Authorized Specialty Diagnoses / Procedures Referred By Contac t Referred To Contact Gastroenterology Diagnoses Iron deficiency anemia, unspecified iron deficiency anemia type Procedures MS OFFICE/OUTPATIENT [facility] 60 MINUTES Frantz Conley MD [address] [facility] [address] [place] [address] Mick Branch MD [address] [facility] [address] [place] [address] Referral ID Status Reason Start Date Expiration Date Visits Requested Visits Authorized [id number] Authorized Specialty Services Required 05/08/2023 11/04/2023 1 1 [facility]No reason for referral [facility] Work Phone: reason for visit NarrativePT HERE AT REQUEST OF DR DAY FOR EVALUATION AND TREATMENT OF CIRRHOSIS, REFERRAL NOTE [facility] Other Summary Purpose Family History Relationship Condition [...] 9:52am Hospital Course Note MR#: [id number] [facility] Pt. Name: Pankaj Payne Admitted: 02/28/2018 Discharged: [...] no loss of consciousness, initial encounter (HCC) Procedures CT HEAD WO CONTRAST Pato Grissom, SPRUE KNOCKER - AUDIO VISUAL PROJECT MANAGER [address] [place] [address] Referral ID Status Reason Start Date Expiration Date Visits Re quested Visits Authorized [id number] Open 08/24/2021 08/24/2022 1 1 Specialty Diagnoses / Procedures Referred By Contac t Referred To Contact Cardiology Diagnoses PVC (premature ventricular contraction) Procedures Holter Or Event Manager [employer] Crescencio Marin DO [address] [facility] [address] [place] [address] Referral ID Status Reason Start Date Expiration Date V isits Requested Visits Authorized [id number] Pending Review 06/20/2023 06/19/2024 1 1 Specialty Diagnoses / Procedures Referred By Contac t Referred To Contact Diagnoses PVC (premature ventricular contraction) Procedures ECG 12 Lead Crescencio Marin DO [address] [facility] [address], [place] [phone] Referral ID Status Reason Start Date Expiration Date V isits Requested Visits Authorized [id number] Authorized 06/20/2023 06/19/2024 1 1 Specialty Diagnoses / Procedures Referred By Contac t Referred To Contact Cardiology Diagnoses ASHD (arteriosclerotic heart disease) Procedures Follow Up In Cardiology Crescencio Marin, DO [address] [facility] 2, [place] [phone] Crescencio Marin, DO [address], [place] [phone] Referral ID Status Reason Start Date Expiration Date V isits Requested Visits Authorized [id number] Authorized 06/20/2023 06/19/2024 1 1 Specialty Diagnoses / Procedures Referred By Contac t Referred To Contact Diagnoses PVC (premature ventricular contraction) Bradycardia Procedures ECG 12 Lead Crescencio Marin, DO [address] [facility] [address], [place] [phone] Referral ID Status Reason Start Date Expiration Date V isits Requested Visits Authorized [id number] Authorized 01/01/2024 12/31/2024 1 1 Referral ID Status Reason Start Date Expiration Date V isits Requested Visits Authorized [id number] Authorized 01/01/2024 12/31/2024 1 1 Chief Complaint [...] steatoh epatitis (MASH) November 11, 2024 1:26pm Chief Complaint Admit Date k75.81 k76.0 k31.819 [...] 1:26pm Pancytopenia, acquired November 11, 2024 1:26pm Additional Source Comments (unrecognized sect ion and content) No Status Records FoundNo Status Records FoundNo Status Records FoundNo Status Records FoundNo Status Records FoundNo Status Records FoundNo Status Records FoundNo Status Records FoundNo Status Records Found INFORMATION SOURCE (unrecogn ized section and content) DATE CREATED AUTHOR [facility]/05/2018 [facility] DATE CREATED AUTHOR AUTHOR'S ORGANIZ ATION 11/12/2018 [facility] DATE CREATED AUTHOR AUTHOR'S ORGANIZ ATION 06/08/2021 [facility]ical Specialist DATE CREATED AUTHOR AUTHOR'S ORGANIZ ATION 08/20/2021 [facility] DATE CREATED AUTHOR AUTHOR'S ORGANIZ ATION 11/15/2021 [facility] DATE CREATED AUTHOR AUTHOR'S ORGANIZ ATION 07/11/2024 [facility] DATE CREATED AUTHOR AUTHOR'S ORGANIZ ATION 09/11/2024 [facility] DATE CREATED AUTHOR AUTHOR'S ORGANIZ ATION 10/22/2024 [facility]ical Specialists [facility] DATE CREATED AUTHOR AUTHOR'S ORGANIZ ATION 11/13/2024 [facility] Reason for Visit (unrecogniz ed [...] ECG 12 Lead Crescencio Marin DO [address] [facility] [address], [address] [place] [id number] Referral ID Status Reason Start Date Expiration Date V isits Requested Visits Authorized [id number] Authorized 06/20/2023 06/19/2024 1 1 Reason Comments Follow-up 6 month Specialty Diagnoses / Procedures Referred By Contac t Referred To Contact Cardiology Diagnoses ASHD (arteriosclerotic heart disease) Procedures Follow Up In Cardiology Crescencio Marin, [address] [place] [address] 2, [place] [phone] Crescencio Marin, [address], [place] [phone] Referral ID Status Reason Start Date Expiration Date V isits Requested Visits Authorized [id number] Authorized 06/20/2023 06/19/2024 1 1 Reason Comments Hypertension Reason Onset Date Comments Med Refill 04/22/2024 Reason Comments Follow-up 8 month visit for ca d. Specialty Diagnoses / Procedures Referred By Contac t Referred To Contact Cardiology Diagnoses ASHD (arteriosclerotic heart disease) Procedures Follow Up In Cardiology Crescencio Marin, [address], [place] [phone] Phone: tel: fax: Crescencio Marin, [address], [place] [phone] Phone: tel: fax: Referral ID Status Reason Start Date Expiration Date V isits Requested Visits Authorized [id number] Authorized 01/01/2024 12/31/2024 1 1 Reason Comments Hypotension Reason Comments Medicare Annual Wellness Visit Subsequen t Ordered Prescriptions (unrec ognized section and [...] June 05, 2023 End: June 05, 2023 Stripper Preliminary Relationship Specialty Start Date End Date Frantz Conley MD [address] [place] [address] PCP - General Internal Medicine 08/16/21 Team [...] Active Zoila Castorena MD Attending Provider Active Stripper Preliminary Relationship Specialty Start Date End Date Frantz Conley MD [address] [place] [address] PCP - General Internal Medicine 08/08/22 Frantz Conley MD [address] [place] [address] PCP - ACO Reach 08/16/22 Stripper Preliminary Relationship Specialty Start Date End Date Frantz Conley MD [address] [place] [address] PCP - General Internal Medicine 08/08/22 Frantz Conley MD [address] [place] [address] PCP - ACO Reach 08/16/22 Stripper Preliminary Relationship Specialty Start Date End Date Frantz Conley MD [address] [place] [address] PCP - General Internal Medicine 06/20/23 Team [...] Provide r Active Start: October 23, 2023 Stripper Preliminary Relationship Specialty Start Date End Date Frantz Conley MD [address] [place] [address] PCP - General Internal Medicine 08/08/22 Frantz Conley MD [address] [place] [address] PCP - ACO Reach 08/16/22 Stripper Preliminary Relationship Specialty Start Date End Date Frantz Conley MD [address] [place] [address] PCP - General Internal Medicine 08/08/22 Frantz Conley MD [address] [place] [address] PCP - ACO Reach 08/16/22 Stripper Preliminary Relationship Specialty Start Date End Date Frantz Conley MD [address] [place] [address] PCP - General Internal Medicine 08/08/22 Frantz Conley MD [address] [place] [address] PCP - ACO Reach 08/16/22 Stripper Preliminary Relationship Specialty Start Date End Date Frantz Conley MD [address] [facility] [address] [place] [address] PCP - General Internal Medicine 08/08/22 Frantz Conley MD [address] [facility] [address] [place] [address] PCP - ACO Reach 08/16/22 Team Status: [...] May 21, 2024 End: May 21, 2024 Stripper Preliminary Relationship Specialty Start Date End Date Frantz Conley MD [address] [facility] [address] [place] [address] PCP - General Internal Medicine 06/20/23 Stripper Preliminary Relationship Specialty Start Date End Date Frantz Conley MD [address] [place] [address] PCP - General Internal Medicine 08/08/22 Frantz Conley MD [address] [facility] [address] [place] [address] PCP - ACO Reach 08/16/22 Stripper Preliminary Relationship Specialty Start Date End Date Frantz Conley MD [address] [place] [address] PCP - General Internal Medicine 08/08/22 Frantz Conley MD [address] [place] [address] PCP - ACO Reach 08/16/22 Stripper Preliminary Relationship Specialty Start Date End Date Frantz Conley MD [address] [place] [address] PCP - General Internal Medicine 08/08/22 Frantz Conley MD [address] [place] [address] PCP - ACO Reach 08/16/22 Team Status: [...] November 11, 2024 End: November 11, 2024 Stripper Preliminary Relationship Specialty Start Date End Date Frantz Conley MD [address] [place] [address] PCP - General Internal Medicine 08/08/22 Frantz Conley MD [address] [place] [address] PCP - ACO Reach 08/16/22 Team Status: Active Member Role Status Dates Alex Marin DO Heat Treat Operator Active Team Status: Inactive Member Role Status Dates Rc Hernandez MD Attending Provider Active Sta rt: December 25, 2024 End: December 25, 2024 Goals (unrecognized section and content) Goals [...] BE BASED ON THE PRIMARY CLINICAL RECORDS. [facility]. provides no warranty or guarantee of the accuracy or completeness of information in this document.
--- OUTSIDE RECORDS SUMMARY | 2024-12-29 14:25 | XMS_ITS | CCD ---
Author Organization [facility] ion [facility] Care Team Providers Care Purchasing Officer Name Role Phone Zahler, Hardeep Unavailable Unavailable [...] Primary Care Provider LIBBY Conley Referring Provider [phone] MD Zoila Castorena Attending Provider MD Mick Branch Attending Provider MD Jose Manning Attending Provider [phone] Frantz Conley MD Primary Care Provider Frantz Conley MD Unavailable [phone] MD Jose Manning Attending Provider [phone] LIBBY Conley Primary Care Provider LIBBY Conley Attending Provider Frantz Conley MD Primary Care Provider LIBBY Conley Primary Care Provider MD Mick Branch Attending Provider Jarvis IIFrantz Primary Care Provider [phone] Mick Branch MD Attending Provider CRESCENCIO MARIN Attending Unavailable CRESCENCIO MARIN Referring Unavailable FRANTZ CONLEY Primary Care Unavailable CRESCENCIO MARIN Attending Unavailable CRESCENCIO MARIN Referring Unavailable FRANTZ CONLEY B Primary Care Unavailable FRANTZ CONLEY Attending Unavailable ROSANNA DALY Attending Unavailable FRANTZ CONLEY Attending Unavailable Frantz Conley II Primary Care Provider Mick Branch MD Attending Provider [phone] Frantz Conley Primary Care Unavailable Mick Branch [...] mo uth once daily fish oil concentrate (Loyal-3) 120-180 mg capsule Take 1 capsule (1,000 mg) by mouth once daily. Active take 1 capsule by mouth three ti mes daily Loyal-3 Fatty Acids (FISH OIL) 1000 MG CAPS [...] tablet by mouth once daily. 0 Active Loyal 0-Myg-Vdm-Fish Oil (Fish Oil) 1,000 mg (120 mg-180 mg) Capsule (14 sources) Start: 04-26-2021 take 1 capsule by mouth three times daily Loyal 3-Ibu-Mcp-Fish Oil (Fish Oil) 1,000 mg (120 mg-180 mg) Capsule Active 1 CAP PO Three times daily April 26, 2021 1:00am Complies with drug therapy Start: 04-26-2021 take 1 capsule by [facility] three times daily Start: 04-26-2021 take 1 capsule by [facility] three times daily Loyal 6-Hju-Jll-Fish Oil (Fish Oil) 1,000 mg (120 mg-180 mg) Capsule Active 1 CAP PO Three times daily April 26, 2021 12:00am Start: 04-26-2021 take 1 capsule by [facility] three times daily Loyal 6-Ros-Bxx-Fish Oil (Fish Oil) 1,000 mg (120 mg-180 mg) Capsule Active 1 CAP PO Three times daily April 26, 2021 1:00am Loyal-3 Fatty Acids (Fish Oil) 1000 MG capsule delayed-release (18 sources) Start: 09-13-2014 take 1 capsule by mouth once daily Loyal-3 Fatty Acids (Fish Oil) 1000 MG capsule delayed-release Take 1 capsule by mouth 1 (one) time each day. 09/13/2014 Active Start: 09-13-2014 take 1 capsule by [facility] once daily Loyal-3 Fatty Acids (Fish Oil) 1000 MG capsule [...] Active Start: 04-18-2023 take 1 tablet by [facility] twice daily as needed Start: 04-18-2023 [...] Substituted for Omeprazole (PRILOSEC). 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; Translations: [OTH CUSTODIAL CURRENT DRUG THERAPY] Onset: 02-07-2021 Episodic Other [...] (Bld) 0.6 % 0.2 - 2.0 % [facility] Eosinophils/100 WBC (Bld) 3.2 % 0.9 - 7.0 % [facility] Erythrocyte distribution width (RBC) [Ratio] 14.3 % 11.0 - 15.0 % [facility] Hematocrit (Bld) [Volume fraction] 33.2 % Low 42.0 - 54.0 % [facility] Hemoglobin (Bld) [Mass/Vol] 10.8 g/dL Low 14.0 - 18.0 g/dL [facility] IMMATURE GRANULOCYTES ABS AUTO 0.01 [facility] Immature granulocytes/100 WBC (Bld) 0.3 % 0.0 - 0.5 % [facility] Interpretation and review of laboratory results Abnormal [facility] LYMPHOCYTES ABSOLUTE AUTO 0.6 Low [facility] Lymphocytes/100 WBC (Bld) 19.4 % Low 20.5 - 60.0 % [facility] MCH (RBC) [Entitic mass] 31.5 pg 25.9 - 34.0 pg [facility] MCHC (RBC) [Mass/Vol] 32.5 g/dL 29.9 - 35.2 g/dL [facility] MCV (RBC) [Entitic vol] 96.8 fL High 80.0 - 94.0 fL [facility] MONOCYTES ABSOLUTE AUTO 0.2 Low [facility] Monocytes/100 WBC (Bld) 7.3 % 1.7 - 12.0 % [facility] NEUTROPHILS ABSOLUTE AUTO 2.2 [facility] Neutrophils/100 WBC (Bld) 69.2 % 43.0 - 75.0 % [facility] Platelet mean volume (Bld) [Entitic vol] 11 fL 9.5 - 13.5 fL [facility] TBH EO # 0.1 [facility] TB PLT 83 Low [facility] TB RBC 3.43 Low [facility] TBH WBC 3.1 Low [facility] Alanine aminotransferase [En zymatic activity/volume] in Serum or PlasmaOrdered By: Mick Branch on 11-02-2024 ALT [Catalytic activity/Vol] 52 U/L [facility] Comment on above: Performed By: #### C MP, CBC, PT #### [facility] [address] [place] [address] [place] Albumin [Mass/volume] in Ser um or Plasma by Bromocresol green (BCG) dye binding methoOrdered By: Mick Branch on 11-02-2024 Albumin BCG dye [Mass/Vol] 3.1 g/dL Low 3.5-5.7 [facility] Alkaline phosphatase [Enzyma tic activity/volume] in Serum or PlasmaOrdered By: Mick Branch on 11-02-2024 ALP [Catalytic activity/Vol] 124 U/L High 34-104 [facility] Comment on above: Result Comment: PERF ORMED BY: [place] [address] PATHOLOGIST DIRECTOR PATIENT GUERA MARROQUIN M.D. Performed By: #### C MP, CBC, PT #### [address] Aspartate aminotransferase [ Enzymatic activity/volume] in Serum or PlasmaOrdered By: Mick Branch on 11-02-2024 AST [Catalytic activity/Vol] 58 U/L High 13-39 [facility] Comment on above: Performed By: #### C MP, CBC, PT #### [place] [address] [place] Basophils [#/volume] in Bloo d by Automated countOrdered By: Mick Branch on 11-02-2024 Basophils (Bld) [#/Vol] 0.0 10*3/uL 0.0-0.2 [facility] Comment on above: Result Comment: PERF ORMED BY: [place] [address] PATHOLOGIST DIRECTOR PATIENT GUERA MARROQUIN M.D. Performed By: #### C MP, CBC, PT #### [place] [address] [place] Basophils/100 leukocytes in Blood by Automated countOrdered By: Mick Branch on 11-02-2024 Basophils/100 WBC (Bld) 0.8 % . [facility] Comment on above: Performed By: #### C MP, CBC, PT #### [facility] [address] Bilirubin.total [Mass/volume ] in Serum or PlasmaOrdered By: Mick Branch on 11-02-2024 Bilirubin [Mass/Vol] 0.9 mg/dL 0.3-1.0 [facility] Comment on above: Performed By: #### C MP, CBC, PT #### [facility] [address] Calcium [Mass/volume] in Ser um or PlasmaOrdered By: Mick Branch on 11-02-2024 Calcium [Mass/Vol] 7.9 mg/dL Low 8.6-10.3 [facility] Comment on above: Performed By: #### C MP, CBC, PT #### [address] Carbon dioxide, total [Moles /volume] in Serum or PlasmaOrdered By: Mick Branch on 11-02-2024 CO2 [Moles/Vol] 29.1 mmol/L 21.0-31.0 [facility] Comment on above: Performed By: #### C MP, CBC, PT #### [address] Chloride [Moles/volume] in S lilly or PlasmaOrdered By: Mick Branch on 11-02-2024 Chloride [Moles/Vol] 110 mmol/L High 98-107 [facility] Comment on above: Performed By: #### C MP, CBC, PT #### [address] Complete Blood Count Auto Di ffon 11-02-2024 Mean Corpuscular HGB Conc 33.5 g/dL Normal 32.5-35.6 [facility] Comment on above: Performed By: #### C MP, CBC, PT #### [address] NRBC% 0.0 /100{WBC} Normal 0-0.5 [facility] Comment on above: Performed By: #### C MP, CBC, PT #### [facility] [address] White Blood Count 3.0 [CFU]/mL Low 4.1-10.5 [facility] Comment on above: Performed By: #### C MP, CBC, PT #### [address] Comprehensive Metabolic Pane ross 11-02-2024 Albumin [Mass/Vol] 3.1 g/dL Low 3.5-5.7 [facility] Comment on above: Performed By: #### C MP, CBC, PT #### [facility] [address] [place] [address] [place] GFR/1.73 sq M.predicted MDRD (S/P/Bld) [Vol rate/Area] mL/min/{1.73_m2} Normal [facility] Comment on above: Performed By: #### C MP, CBC, PT #### [facility] [address] [place] [address] Creatinine [Mass/volume] in Serum or PlasmaOrdered By: Mick Branch on 11-02-2024 Creatinine [Mass/Vol] 0.71 mg/dL 0.70-1.30 [facility] Comment on above: Performed By: #### C MP, CBC, PT #### [place] [address] [place] Eosinophils [#/volume] in Bl ood by Automated countOrdered By: Mick Branch on 11-02-2024 Eosinophils (Bld) [#/Vol] 0.1 10*3/uL 0.0-0.45 [facility] Comment on above: Performed By: #### C MP, CBC, PT #### [facility] [address] [place] [address] [place] Eosinophils/100 leukocytes i n Blood by Automated countOrdered By: Mick Branch on 11-02-2024 Eosinophils/100 WBC (Bld) 1.8 % . [facility] Comment on above: Performed By: #### C MP, CBC, PT #### [address] Erythrocyte distribution wid th [Ratio] by Automated countOrdered By: Mick Branch on 11-02-2024 Erythrocyte distribution width (RBC) [Ratio] 16.4 % High 12.0-14.8 [facility] Comment on above: Performed By: #### C MP, CBC, PT #### [facility] [address] Erythrocytes [#/volume] in B lood by Automated countOrdered By: Mick Branch on 11-02-2024 RBC (Bld) [#/Vol] 3.58 10*6/uL Low 3.90-5.[address] [facility] Comment on above: Performed By: #### C MP, CBC, PT #### [facility] [address] Glucose [Mass/volume] in Ser um or PlasmaOrdered By: Mikc Branch on 11-02-2024 Glucose [Mass/Vol] 120 mg/dL High 70-100 [facility] Comment on above: ADA recommended refe rence rangeRandom Glucose Reference Range is dependent on time and content of last meal. Glucose of more than 200 mg/dL in a nonstressed, ambulatory subject supports the diagnosis of Diabetes Mellitus. Result Comment: [place] om Glucose Reference Range is dependent on time and content of last meal. Glucose of more than 200 mg/dL in a nonstressed, ambulatory subject supports the diagnosis of Diabetes Mellitus. ADA recommended reference range Performed By: #### C MP, CBC, PT #### [facility] [address] Hematocrit [Volume Fraction] of Blood by Automated countOrdered By: Mick Branch on 11-02-2024 Hematocrit (Bld) [Volume fraction] 34.1 % Low 38.8-50.0 [facility] Comment on above: Performed By: #### C MP, CBC, PT #### [facility] [address] Hemoglobin [Mass/volume] in BloodOrdered By: Mick Branch on 11-02-2024 Hemoglobin (Bld) [Mass/Vol] 11.4 g/dL Low 13.0-17.0 [facility] Comment on above: Performed By: #### C MP, CBC, PT #### [address] INR in Platelet poor plasma by Coagulation assayOrdered By: Mick Branch on 11-02-2024 INR Coag (PPP) [Relative time] 1.2 {INR} [facility] Comment on above: INR Therapeutic [...] heart valves: 3 - 4.5 PERFORMED BY: [place] [address] PATHOLOGIST DIRECTOR PATIENT GUERA MARROQUIN M.D. Performed By: #### C MP, CBC, PT #### [address] Leukocytes [#/volume] correc britt for nucleated erythrocytes in Blood by Automated counOrdered By: Mick Branch on 11-02-2024 WBC corrected for nucl RBC Auto (Bld) [#/Vol] 3.0 10*3/uL Low 4.1-10.5 [facility] Leukocytes [#/volume] in Blo od by Automated countOrdered By: Mick Branch on 11-02-2024 WBC (Bld) [#/Vol] 3.0 10*3/uL Low 4.1-10.5 [facility] Comment on above: Performed By: #### C MP, CBC, PT #### [address] Lymphocytes [#/volume] in Bl ood by Automated countOrdered By: Mick Branch on 11-02-2024 Lymphocytes (Bld) [#/Vol] 0.5 10*3/uL Low 1.00-4.8 [facility] Comment on above: Performed By: #### C MP, CBC, PT #### [address] Lymphocytes/100 leukocytes i n Blood by Automated countOrdered By: Mick Branch on 11-02-2024 Lymphocytes/100 WBC (Bld) 15.8 % . [facility] Comment on above: Performed By: #### C MP, CBC, PT #### [address] MCH [Entitic mass] by Automa britt countOrdered By: Mick Branch on 11-02-2024 MCH (RBC) [Entitic mass] 31.9 pg 27.5-35.2 [facility] Comment on above: Performed By: #### C MP, CBC, PT #### [address] MCHC Auto (RBC) [Mass/Vol]Or dered By: Mick Branch on 11-02-2024 MCHC (RBC) [Mass/Vol] 33.5 g/dL 32.5-35.6 [facility] MCV [Entitic volume] by Auto mated countOrdered By: Mick Branch on 11-02-2024 MCV (RBC) [Entitic vol] 95.2 fL 83.5-101 [facility] Comment on above: Performed By: #### C MP, CBC, PT #### [place] [address] [place] Monocytes [#/volume] in Bloo d by Automated countOrdered By: Mick Branch on 11-02-2024 Monocytes (Bld) [#/Vol] 0.2 10*3/uL 0.0-0.8 [facility] Comment on above: Performed By: #### C MP, CBC, PT #### [facility] [address] Monocytes/100 leukocytes in Blood by Automated countOrdered By: Mick Branch on 11-02-2024 Monocytes/100 WBC (Bld) 6.7 % . [facility] Comment on above: Performed By: #### C MP, CBC, PT #### [facility] [address] [place] [address] Neutrophils [#/volume] in Bl ood by Automated countOrdered By: Mick Branch on 11-02-2024 Neutrophils (Bld) [#/Vol] 2.2 10*3/uL 1.8-7.7 [facility] Comment on above: Performed By: #### C MP, CBC, PT #### [facility] [address] [place] [address] Neutrophils/100 leukocytes i n Blood by Automated countOrdered By: Mick Branch on 11-02-2024 Neutrophils/100 WBC (Bld) 74.9 % . [facility] Comment on above: Performed By: #### C MP, CBC, PT #### [facility] [address] [place] [address] No Panel InformationOrdered By: Mick Branch on 11-02-2024 Estimated GFR (CKD-EPI) > 60.0 mL/Min [facility] Creatinine Clearance (Chem N/A [facility] Nucleated erythrocytes [Pres ence] in Blood by Automated countOrdered By: Mick Branch on 11-02-2024 Nucleated RBC Auto Ql (Bld) 0.0 /100{WBC} 0-0.5 [facility] Platelet mean volume [Entiti c volume] in Blood by Automated countOrdered By: Mick Branch on 11-02-2024 Platelet mean volume (Bld) [Entitic vol] 8.0 fL 6.6-10.1 [facility] Comment on above: Performed By: #### C MP, CBC, PT #### [facility] [address] [place] [address] Platelets [#/volume] in Bloo d by Automated countOrdered By: Mick Branch on 11-02-2024 Platelets (Bld) [#/Vol] 102 10*3/uL Low 150-450 [facility] Comment on above: Performed By: #### C MP, CBC, PT #### [facility] [address] Potassium [Moles/volume] in Serum or PlasmaOrdered By: Mick Branch on 11-02-2024 Potassium [Moles/Vol] 3.9 mmol/L 3.5-5.1 [facility] Comment on above: Performed By: #### C MP, CBC, PT #### [facility] [address] Protein [Mass/volume] in Ser um or PlasmaOrdered By: Mick Branch on 11-02-2024 Protein [Mass/Vol] 5.8 g/dL Low 6.4-8.9 [facility] Comment on above: Performed By: #### C MP, CBC, PT #### [facility] [address] Prothrombin time (PT)Ordered By: Mick Branch on 11-02-2024 PT Coag (PPP) [Time] 13.5 s High 9.0-12.9 [facility] Comment on above: A hematocrit value g reater than 55% may lead to inaccurate results in coagulation testing. Patients having hematocrit values >55% require a special collection tube for coagulation studies. Please contact the laboratory at [phone] for redraw instructions. Result Comment: A he matocrit value greater than 55% may lead to inaccurate results in coagulation testing. Patients having hematocrit values >55% require a special collection tube for coagulation studies. Please contact the laboratory at [phone] for redraw instructions. Performed By: #### C MP, CBC, PT #### [facility] [address] Serum globulin measurement b y calculation (mass/volume)Ordered By: Mick Branch on 11-02-2024 Globulin (S) [Mass/Vol] 2.7 g/dL [facility] Comment on above: Performed By: #### C MP, CBC, PT #### [facility] [address] [place] [address] Serum or plasma albumin/glob ulin mass ratioOrdered By: Mick Branch on 11-02-2024 Albumin/Globulin [Mass ratio] 1.1 {ratio} [facility] Comment on above: Performed By: #### C MP, CBC, PT #### [address] Serum or plasma anion gap de terminationOrdered By: Mick Branch on 11-02-2024 Anion gap [Moles/Vol] 5.8 mmol/L Low 6.0-15.0 [facility] Comment on above: Performed By: #### C MP, CBC, PT #### [address] Sodium [Moles/volume] in Ser um or PlasmaOrdered By: Mick Branch on 11-02-2024 Sodium [Moles/Vol] 141 mmol/L 136-145 [facility] Comment on above: Performed By: #### C MP, CBC, PT #### [address] Urea nitrogen [Mass/volume] in Serum or PlasmaOrdered By: Mick Branch on 11-02-2024 Urea nitrogen [Mass/Vol] 15 mg/dL 7-25 [facility] Comment on above: Performed By: #### C MP, CBC, PT #### [address] ALL BASIC METABOLIC PANELon 10-01-2024 Anion gap [Moles/Vol] 13.1 mmol/L [facility] Calcium [Mass/Vol] 9 mg/dL 8.5 - 10. 1 mg/dL [facility] Chloride [Moles/Vol] 111 mmol/L High 98 - 10 7 mmol/L [facility] CO2 [Moles/Vol] 26.2 mmol/L 21.0 - 32.0 mmol/L [facility] Creatinine [Mass/Vol] 0.89 mg/dL 0.70 - 1.30 mg/dL [facility] GFR/1.73 sq M.predicted CKD-EPI (S/P/Bld) [Vol rate/Area] >60 >=60 mL/min/1.7 3m 2 [facility] Glucose [Mass/Vol] 106 mg/dL 74 - 106 mg/dL [facility] Potassium [Moles/Vol] 4.3 mmol/L 3.5 - 5.1 mmol/L [facility] Sodium [Moles/Vol] 146 mmol/L High 136 - 145 mmol/L [facility] TBH EGFR-NON AF GHANAIAN >60 >=60 mL/min/1.7 3m 2 [facility] Urea nitrogen [Mass/Vol] 17 mg/dL 7.0 - 18.0 mg/dL [facility] Urea nitrogen/Creatinine [Mass ratio] 19.1 mg/mg [facility] ALL LIPID PROFILE (FASTING)o n 10-01-2024 CHOL HDL RATIO 1.9 [facility] Comment on above: 3.3 - 4.4 LOW RISK 4.4 - 7.1 AVERAGE RISK 7.1 - 11.0 MODERATE RISK >11.0 HIGH RISK Cholesterol [Mass/Vol] 113 mg/dL NINF - 200 mg/dL [facility] Cholesterol in HDL [Mass/Vol] 60 mg/dL 40 - 60 mg/dL [facility] Comment on above: > or =60 mg/dl - LOW CARDIOVASCULAR RISK <40 mg/dl - HIGH CARDIOVASCULAR RISK Magnesium [Mass/Vol] 41.4 mg/dL [facility] Comment on above: <100 mg/dl OPTIMAL 100-129 mg/dl NEAR OR ABOVE OPTIMAL 130-159 mg/dl BORDERLINE HIGH 160-189 mg/dl HIGH >190 mg/dl VERY HIGH Magnesium [Mass/Vol] 11.6 mg/dL [facility] Triglyceride [Mass/Vol] 58 mg/dL NINF - 150 mg/dL [facility] Ever 10-01-2024 ALT [Catalytic activity/Vol] 51 U/L 16 - 63 U/L [facility] Porfirio 10-01-2024 AST [Catalytic activity/Vol] 46 U/L High 15 - 37 U/L [facility] No Panel Informationon 10-01 Interpretation and review of laboratory results Abnormal [facility] ALL CBC WITH AUTO DIFFon Erythrocyte distribution width (RBC) [Ratio] 13.8 % 11.0 - 15.0 % [facility] Hematocrit (Bld) [Volume fraction] 37.5 % Low 42.0 - 54.0 % [facility] Hemoglobin (Bld) [Mass/Vol] 12.6 g/dL Low 14.0 - 18.0 g/dL [facility] Interpretation and review of laboratory results Abnormal [facility] MCH (RBC) [Entitic mass] 31.2 pg 25.9 - 34.0 pg [facility] MCHC (RBC) [Mass/Vol] 33.6 g/dL 29.9 - 35.2 g/dL [facility] MCV (RBC) [Entitic vol] 92.8 fL 80.0 - 94.0 fL [facility] Platelet mean volume (Bld) [Entitic vol] 10.6 fL 9.5 - 13.5 fL [facility] PLT 65 Low [facility] RBC 4.04 Low [facility] WBC 3.3 Low [facility] 36on 07-09-2024 36 This patient hasn't been seen since 2022 [facility] US abdomen limitedon 025 US abdomen limited [facility] [place] [address] Ultrasound Report Signed Patient: Pankaj Payne MR#: [id number] : 1945 Acct:[id number] Age/Sex: 78 / M ADM Date: 05/21/24 Loc: Room: Type: [facility] Attending Dr: Mick Branch MD Ordering [...] Claros Jr., D.O.05/21/2024 10:23 AM Dictation Location: [place] [address] Tech: Lizzy Llanes Transcribed By: USMAN 05/21/24 1023 Dictated By: Kartik Claros Jr, DO 05/21/24 1022 Signed By: 05/21/24 1023 Normal [facility] AFP Tumor Marker, Serumon AFP Tumor Marker, Serum 2.5 ng/mL Normal 0.0-8.4 [facility] Comment on above: Result Comment: [employer] Electrochemiluminescence Immunoassay (ECLIA) Values obtained with different assay methods or kits cannot be used interchangeably. Results cannot be interpreted as absolute evidence of the presence or absence of malignant disease. This test is not interpretable in females. Performed at: [address] [id number] [place] Product Owner: Charlie Klein PhD, Phone: [phone] PERFORMED BY: [place] [address] PATHOLOGIST DIRECTOR PATIENT LUCIUS IRELAND M.D. Performed By: #### A FPTM #### [facility] , #### PSAS, TSH3 wRFLX, CMP, PT, LIPID #### [address] Alanine aminotransferase [En zymatic activity/volume] in Serum or PlasmaOrdered By: Mick Branch on 04-30-2024 ALT [Catalytic activity/Vol] Alanine aminotransferase [Enzymatic activity/volume] in Serum or Plasma [facility] Albumin [Mass/volume] in Ser um or Plasma by Bromocresol green (BCG) dye binding methoOrdered By: Mick Branch on 04-30-2024 Albumin BCG dye [Mass/Vol] Albumin [Mass/volume] in Serum or Plasma by Bromocresol green (BCG) dye binding metho 3.5-5.7 [facility] Alkaline phosphatase [Enzyma tic activity/volume] in Serum or PlasmaOrdered By: Mick Branch on 04-30-2024 ALP [Catalytic activity/Vol] Alkaline phosphatase [Enzymatic activity/volume] in Serum or Plasma High 34-104 [facility] Aspartate aminotransferase [ Enzymatic activity/volume] in Serum or PlasmaOrdered By: Mick Branch on 04-30-2024 AST [Catalytic activity/Vol] Aspartate aminotransferase [Enzymatic activity/volume] in Serum or Plasma High 13-39 [facility] Bilirubin.total [Mass/volume ] in Serum or PlasmaOrdered By: Mick Branch on 04-30-2024 Bilirubin [Mass/Vol] Bilirubin.total [Mass/volume] in Serum or Plasma 0.3-1.0 [facility] Calcium [Mass/volume] in Ser um or PlasmaOrdered By: Mick Branch on 04-30-2024 Calcium [Mass/Vol] Calcium [Mass/volume ] in Serum or Plasma 8.6-10.3 [facility] Carbon dioxide, total [Moles /volume] in Serum or PlasmaOrdered By: Mick Branch on 04-30-2024 CO2 [Moles/Vol] Carbon dioxide, tota l [Moles/volume] in Serum or Plasma High 21.0-31.0 [facility] Chloride [Moles/volume] in S lilly or PlasmaOrdered By: Mick Branch on 04-30-2024 Chloride [Moles/Vol] Chloride [Moles/vol ume] in Serum or Plasma High 98-107 [facility] Cholesterol [Mass/volume] in Serum or PlasmaOrdered By: Mick Branch on 04-30-2024 Cholesterol [Mass/Vol] Cholesterol [Mass /volume] in Serum or Plasma 140-200 [facility] Comment on above: Chol less than 200 m g/dl low riskChol 201-239 mg/dl borderline riskChol 240 mg/dl and greater high risk Cholesterol in HDL [Mass/vol ume] in Serum or PlasmaOrdered By: Mick Branch on 04-30-2024 Cholesterol in HDL [Mass/Vol] Serum or plasma high density lipoprotein (HDL) cholesterol measurement 23-92 [facility] Comment on above: HDL CHOL ATP-III CLA SSIFICATION Cardiovascular RiskHDL > or equal to 60 mg/dL LOWHDL < 40 mg/dL HIGH Cholesterol in LDL Calc [Mas s/Vol]Ordered By: Mick Branch on 04-30-2024 Cholesterol in LDL [Mass/Vol] Cholesterol in LDL [Mass/volume] in Serum or Plasma by calculation 0-100 [facility] Comment on above: LDL ATP III CLASSIFI CATIONLDL less than 100 mg/dL OptimalLDL 100-129 mg/dL Near or above optimalLDL 130-159 mg/dL Borderline highLDL 160-189 mg/dL HighLDL greater than 189 mg/dL Very high Cholesterol in VLDL Calc [Ma ss/Vol]Ordered By: Mick Branch on 04-30-2024 Cholesterol in VLDL [Mass/Vol] Cholesterol in VLDL [Mass/volume] in Serum or Plasma by calculation [facility] Comprehensive Metabolic Pane ross 04-30-2024 Albumin [Mass/Vol] 3.5 g/dL Normal 3.5-5.7 [facility] Comment on above: Performed By: #### A FPTM #### [facility] , #### PSAS, TSH3 wRFLX, CMP, PT, LIPID #### [facility] [address] [place] [address] [place] Albumin/Globulin [Mass ratio] 1.3 {ratio} Normal [facility] Comment on above: Performed By: #### A FPTM #### [facility] , #### PSAS, TSH3 wRFLX, CMP, PT, LIPID #### [facility] [address] [place] [id number] [place] ALP [Catalytic activity/Vol] 122 U/L High 34-104 [facility] Comment on above: Performed By: #### A FPTM #### [facility] , #### PSAS, TSH3 wRFLX, CMP, PT, LIPID #### [facility] [address] [place] [id number] [place] ALT [Catalytic activity/Vol] 40 U/L Normal 7-52 [facility] Comment on above: Performed By: #### A FPTM #### [facility] , #### PSAS, TSH3 wRFLX, CMP, PT, LIPID #### [address] Anion gap [Moles/Vol] 4.9 mmol/L Low 6.0-15.0 [facility] Comment on above: Performed By: #### A FPTM #### [facility] , #### PSAS, TSH3 wRFLX, CMP, PT, LIPID #### [address] AST [Catalytic activity/Vol] 46 U/L High 13-39 [facility] Comment on above: Performed By: #### A FPTM #### [facility] , #### PSAS, TSH3 wRFLX, CMP, PT, LIPID #### [address] Bilirubin [Mass/Vol] 0.7 mg/dL Normal 0.3-1.0 [facility] Comment on above: Performed By: #### A FPTM #### [facility] , #### PSAS, TSH3 wRFLX, CMP, PT, LIPID #### [facility] [address] [place] [address] Calcium [Mass/Vol] 8.8 mg/dL Normal 8.6-10.3 [facility] Comment on above: Performed By: #### A FPTM #### [facility] , #### PSAS, TSH3 wRFLX, CMP, PT, LIPID #### [facility] [address] [place] [address] Chloride [Moles/Vol] 109 mmol/L High 98-107 [facility] Comment on above: Performed By: #### A FPTM #### [facility] , #### PSAS, TSH3 wRFLX, CMP, PT, LIPID #### [facility] [address] [place] [address] [place] CO2 [Moles/Vol] 31.4 mmol/L High 21.0-31.0 [facility] Comment on above: Performed By: #### A FPTM #### [facility] , #### PSAS, TSH3 wRFLX, CMP, PT, LIPID #### [facility] [address] [place] [address] Creatinine [Mass/Vol] 0.91 mg/dL Normal 0.70-1.30 [facility] Comment on above: Performed By: #### A FPTM #### [facility] , #### PSAS, TSH3 wRFLX, CMP, PT, LIPID #### [address] GFR/1.73 sq M.predicted MDRD (S/P/Bld) [Vol rate/Area] mL/min/{1.73_m2} Normal [facility] Comment on above: Performed By: #### A FPTM #### [facility] , #### PSAS, TSH3 wRFLX, CMP, PT, LIPID #### [address] Globulin (S) [Mass/Vol] 2.7 g/dL Normal [facility] Comment on above: Performed By: #### A FPTM #### [facility] , #### PSAS, TSH3 wRFLX, CMP, PT, LIPID #### [facility] [address] [place] [address] Glucose [Mass/Vol] 82 mg/dL Normal 70-100 [facility] Comment on above: Result Comment: [place] Glucose Reference Range is dependent on time and content of last meal. Glucose of more than 200 mg/dL in a nonstressed, ambulatory subject supports the diagnosis of Diabetes Mellitus. ADA recommended reference range Performed By: #### A FPTM #### [facility] , #### PSAS, TSH3 wRFLX, CMP, PT, LIPID #### [facility] [address] [place] [address] Potassium [Moles/Vol] 4.3 mmol/L Normal 3.5-5.1 [facility] Comment on above: Performed By: #### A FPTM #### [facility] , #### PSAS, TSH3 wRFLX, CMP, PT, LIPID #### [address] Protein [Mass/Vol] 6.2 g/dL Low 6.4-8.9 [facility] Comment on above: Performed By: #### A FPTM #### [facility] , #### PSAS, TSH3 wRFLX, CMP, PT, LIPID #### [address] Sodium [Moles/Vol] 141 mmol/L Normal 136-145 [facility] Comment on above: Performed By: #### A FPTM #### [facility] , #### PSAS, TSH3 wRFLX, CMP, PT, LIPID #### [address] Urea nitrogen [Mass/Vol] 18 mg/dL Normal 7-25 [facility] Comment on above: Performed By: #### A FPTM #### [facility] , #### PSAS, TSH3 wRFLX, CMP, PT, LIPID #### [address] Creatinine [Mass/volume] in Serum or PlasmaOrdered By: Mick Branch on 04-30-2024 Creatinine [Mass/Vol] Creatinine [Mass/v olume] in Serum or Plasma 0.70-1.30 [facility] Globulin Calc (S) [Mass/Vol] Ordered By: Mick Branch on 04-30-2024 Globulin (S) [Mass/Vol] Serum globulin measurement by calculation (mass/volume) [facility] Glucose [Mass/volume] in Ser um or PlasmaOrdered By: Mick Branch on 04-30-2024 Glucose [Mass/Vol] Glucose [Mass/volume ] in Serum or Plasma 70-100 [facility] Comment on above: ADA recommended [...] in Platelet poor plasma by Coagulation assay [facility] Comment on above: INR Therapeutic [...] [Mass/Vol] 142 mg/dL Normal 140-200 [facility] Comment on above: Result Comment: Chol less than 200 mg/dl low risk Chol 201-239 mg/dl borderline risk Chol 240 mg/dl and greater high risk Performed By: #### A FPTM #### [facility] , #### PSAS, TSH3 wRFLX, CMP, PT, LIPID #### [facility] [address] [place] [address] [place] Cholesterol in HDL [Mass/Vol] 42 mg/dL Normal 23-92 [facility] Comment on above: Result Comment: HDL CHOL ATP-III CLASSIFICATION Cardiovascular Risk HDL > or equal to 60 mg/dL LOW HDL < 40 mg/dL HIGH Performed By: #### A FPTM #### [facility] , #### PSAS, TSH3 wRFLX, CMP, PT, LIPID #### [facility] [address] [place] [id number] [place] Cholesterol.total/Chol esterol in HDL [Mass ratio] 3.4 {ratio} Normal <5.0 [facility] Comment on above: Performed By: #### A FPTM #### [facility] , #### PSAS, TSH3 wRFLX, CMP, PT, LIPID #### [address] LDL Cholesterol,Calculated 67 mg/dL Normal 0-100 [facility] Comment on above: Result Comment: LDL ATP III CLASSIFICATION LDL less than 100 mg/dL Optimal LDL 100-129 mg/dL Near or above optimal LDL 130-159 mg/dL Borderline high LDL 160-189 mg/dL High LDL greater than 189 mg/dL Very high Performed By: #### A FPTM #### [facility] , #### PSAS, TSH3 wRFLX, CMP, PT, LIPID #### [address] Triglyceride w/Reflex 166 mg/dL High 0-149 [facility] Comment on above: [...] PSAS, TSH3 wRFLX, CMP, PT, LIPID #### [address] VLDL CHOLESTEROL 33 mg/dL Normal [facility] Comment on above: Performed By: #### A FPTM #### [facility] , #### PSAS, TSH3 wRFLX, CMP, PT, LIPID #### [facility] [address] [place] [address] No Panel InformationOrdered By: Mick Branch on 04-30-2024 Estimated GFR (CKD-EPI) > 60.0 mL/Min [facility] Creatinine Clearance (Chem N/A [facility] PSA Screen (Yearly Only)on 0 04-30-2024 PSA Screen (Yearly Only) 0.600 ng/mL Normal 0.000-4.00 0 [facility] Comment on above: Result Comment: Seri al tumor marker results determined by assays using different manufacturers or methods may not be comparable. [facility] lead cashier and method: [employer] DXI, CHEMILUMINESCENT IMMUNOASSAY. PERFORMED BY: [place] [address] PATHOLOGIST DIRECTOR PATIENT LUCIUS IRELAND M.D. Performed By: #### A FPTM #### [facility] , #### PSAS, TSH3 wRFLX, CMP, PT, LIPID #### [address] Potassium [Moles/volume] in Serum or PlasmaOrdered By: Mick Branch on 04-30-2024 Potassium [Moles/Vol] Potassium [Moles/v olume] in Serum or Plasma 3.5-5.1 [facility] Prostate specific Ag [Mass/v olume] in Serum or PlasmaOrdered By: Mick Branch on 04-30-2024 Prostate specific Ag [Mass/Vol] Prostate specific Ag [Mass/volume] in Serum or Plasma 0.000-4.00 0 [facility] Comment on above: Serial tumor marker results determined by assays using different manufacturers or methods may not be comparable.[facility] lead cashier and method:[employer] DXI, CHEMILUMINESCENT IMMUNOASSAY. Protein [Mass/volume] in Ser um or PlasmaOrdered By: Mick Branch on 04-30-2024 Protein [Mass/Vol] Protein [Mass/volume ] in Serum or Plasma Low 6.4-8.9 [facility] Prothrombin Time INRon 04-30 INR Coag (PPP) [Relative time] 1.2 {INR} Normal [facility] Comment on above: [...] heart valves: 3 - 4.5 PERFORMED BY: [address] [place] [address] PATHOLOGIST DIRECTOR PATIENT LUCIUS IRELAND M.D. Performed By: #### A FPTM #### [facility] , #### PSAS, TSH3 wRFLX, CMP, PT, LIPID #### [facility] [address] [place] [id number] [facility] PT Coag (PPP) [Time] 13.8 s High 9.0-12.9 [facility] Comment on above: Result Comment: A he matocrit value greater than 55% may lead to inaccurate results in coagulation testing. Patients having hematocrit values >55% require a special collection tube for coagulation studies. Please contact the laboratory at [phone] for redraw instructions. Performed By: #### A FPTM #### [facility] , #### PSAS, TSH3 wRFLX, CMP, PT, LIPID #### [place] [id number] [facility] Prothrombin time (PT)Ordered By: Mick Branch on 04-30-2024 PT Coag (PPP) [Time] Prothrombin time (PT) High 9.0- 12.9 [facility] Comment on above: A hematocrit value g reater than 55% may lead to inaccurate results in coagulation testing. Patients having hematocrit values >55% require a special collection tube for coagulation studies. Please contact the laboratory at [phone] for redraw instructions. Serum or plasma albumin/glob ulin mass ratioOrdered By: Mick Branch on 04-30-2024 Albumin/Globulin [Mass ratio] Serum or plasma albumin/globulin mass ratio [facility] Serum or plasma [id number] protein tumor marker measurement (mass/volume)Ordered By: Mick Branch on 04-30-2024 AFP.tumor marker [Mass/Vol] Serum or plasma [id number] tumor marker measurement (mass/volume) 0.0-8.4 [facility] Comment on above: [facility] [place] ectrochemiluminescence Immunoassay(ECLIA)Values obtained with different assay methods or kits cannotbe used interchangeably. Results cannot be interpreted asabsolute evidence of the presence or absence of malignantdisease.This test is not interpretable in females.Performed at: - [facility] [id number] Director: Charlie Klein PhD, Phone: [phone] Serum or plasma anion gap de terminationOrdered By: Mick Branch on 04-30-2024 Anion gap [Moles/Vol] Serum or plasma an ion gap determination Low 6.0-15.0 [facility] Serum or plasma total choles terol/high density lipoprotein (HDL) cholesterol mass ratOrdered By: Mick Branch on 04-30-2024 Cholesterol.total/Chol esterol in HDL [Mass ratio] Serum or plasma total cholesterol/high density lipoprotein (HDL) cholesterol mass rat <5.0 [facility] Sodium [Moles/volume] in Ser um or PlasmaOrdered By: Mick Branch on 04-30-2024 Sodium [Moles/Vol] Sodium [Moles/volume ] in Serum or Plasma 136-145 [facility] Thyroid Stim Hormone w/Rflxo n 04-30-2024 Thyroid Stim Hormone w/Rflx 3.07 u[iU]/mL Normal 0.45-5.33 [facility] Comment on above: Result Comment: PERF ORMED BY: [place] [address] PATHOLOGIST DIRECTOR PATIENT LUCIUS IRELAND M.D. Performed By: #### A FPTM #### [facility] , #### PSAS, TSH3 wRFLX, CMP, PT, LIPID #### [facility] [address] [place] [address] [place] Thyrotropin [Units/volume] i n Serum or PlasmaOrdered By: Mick Branch on 04-30-2024 TSH Qn Thyrotropin [Units/volume] in Serum or Plasma 0.45-5.33 [facility] Triglyceride [Mass/volume] i n Serum or PlasmaOrdered By: Mick Branch on 04-30-2024 Triglyceride [Mass/Vol] Triglyceride [Mass/volume] in Serum or Plasma High 0-149 [facility] Comment on above: TRIG ATP [...] nitrogen [Mass/volume] in Serum or Plasma 10-16 [facility] ALL CBC WITH AUTO DIFFon Erythrocyte distribution width (RBC) [Ratio] 13.6 % 11.0 - 15.0 % [facility] Hematocrit (Bld) [Volume fraction] 40 % Low 42.0 - 54.0 % [facility] Hemoglobin (Bld) [Mass/Vol] 13 g/dL Low 14.0 - 18.0 g/dL [facility] Interpretation and review of laboratory results Abnormal [facility] MCH (RBC) [Entitic mass] 31.6 pg 25.9 - 34.0 pg [facility] MCHC (RBC) [Mass/Vol] 32.5 g/dL 29.9 - 35.2 g/dL [facility] MCV (RBC) [Entitic vol] 97.1 fL High 80.0 - 94.0 fL [facility] Platelet mean volume (Bld) [Entitic vol] 11.1 fL 9.5 - 13.5 fL [facility] TBH PLT 84 Low [facility] TBH RBC 4.12 Low [facility] TBH WBC 4.9 [facility] ECG 12 [place] 01-01-2024 Sinus bradycardia, P VC, sinus arrhythmia, anterolateral FL age-indeterminate, abnormal ECG [facility] Work Phone: [facility] Work Phone: ALL CBC WITH AUTO DIFFon Erythrocyte distribution width (RBC) [Ratio] 18.3 % High 11.0 - 15.0 % [facility] Hematocrit (Bld) [Volume fraction] 38.3 % Low 42.0 - 54.0 % [facility] Hemoglobin (Bld) [Mass/Vol] 12.2 g/dL Low 14.0 - 18.0 g/dL [facility] Interpretation and review of laboratory results Abnormal [facility] MCH (RBC) [Entitic mass] 29.5 pg 25.9 - 34.0 pg [facility] MCHC (RBC) [Mass/Vol] 31.9 g/dL 29.9 - 35.2 g/dL [facility] MCV (RBC) [Entitic vol] 92.5 fL 80.0 - 94.0 fL [facility] Platelet mean volume (Bld) [Entitic vol] 11.1 fL 9.5 - 13.5 fL [facility] TBH PLT 63 Low [facility] TB RBC 4.14 Low [facility] WBC 3.1 Low [facility] No Panel InformationOrdered By: Mick Branch on 10-23-2023 Miscellaneous Pathology Test See comment [facility] Comment on above: See report. Scanned copy available in EMR. Alanine aminotransferase [En zymatic activity/volume] in Serum or PlasmaOrdered By: Mick Branch on 09-17-2023 ALT [Catalytic activity/Vol] 43 U/L 7-52 [facility] Albumin [Mass/volume] in Ser um or Plasma by Bromocresol green (BCG) dye binding methoOrdered By: Mick Branch on 09-17-2023 Albumin BCG dye [Mass/Vol] 3.9 g/dL 3.5-5.7 [facility] Alkaline phosphatase [Enzyma tic activity/volume] in Serum or PlasmaOrdered By: Mick Branch on 09-17-2023 ALP [Catalytic activity/Vol] 138 U/L High 34-104 [facility] Anisocytosis LM Ql (Bld)Orde red By: Mick Branch on 09-17-2023 Anisocytosis Ql (Bld) Slight [facility] Aspartate aminotransferase [ Enzymatic activity/volume] in Serum or PlasmaOrdered By: Mick Branch on 09-17-2023 AST [Catalytic activity/Vol] 49 U/L High 13-39 [facility] Band form neutrophils/100 WB C Manual cnt (Bld)Ordered By: Mick Branch on 09-17-2023 Band form neutrophils/100 WBC (Bld) 1 % 0-5 [facility] Basophils Auto (Bld) [#/Vol] Ordered By: Mick Branch on 09-17-2023 Basophils (Bld) [#/Vol] N/A [facility] Basophils/100 WBC Auto (Bld) Ordered By: Mick Branch on 09-17-2023 Basophils/100 WBC (Bld) N/A [facility] Bilirubin.total [Mass/volume ] in Serum or PlasmaOrdered By: Mick Branch on 09-17-2023 Bilirubin [Mass/Vol] 0.6 mg/dL 0.3-1.0 [facility] Calcium [Mass/volume] in Ser um or PlasmaOrdered By: Mick Branch on 09-17-2023 Calcium [Mass/Vol] 8.8 mg/dL 8.6-10.3 [facility] Carbon dioxide, total [Moles /volume] in Serum or PlasmaOrdered By: Mick Branch on 09-17-2023 CO2 [Moles/Vol] 27.5 mmol/L 21.0-31.0 [facility] Chloride [Moles/volume] in S lilly or PlasmaOrdered By: Mick Branch on 09-17-2023 Chloride [Moles/Vol] 111 mmol/L High 98-107 [facility] Creatinine [Mass/volume] in Serum or PlasmaOrdered By: Mick Branch on 09-17-2023 Creatinine [Mass/Vol] 0.94 mg/dL 0.70-1.30 [facility] Eosinophils Auto (Bld) [#/Vo l]Ordered By: Mick Branch on 09-17-2023 Eosinophils (Bld) [#/Vol] N/A [facility] Eosinophils/100 WBC Auto (Bl d)Ordered By: Mick Branch on 09-17-2023 Eosinophils/100 WBC (Bld) N/A [facility] Eosinophils/100 WBC Manual c nt (Bld)Ordered By: Mick Branch on 09-17-2023 Eosinophils/100 WBC (Bld) 4 % High 1-3 [facility] Erythrocyte distribution wid th Auto (RBC) [Ratio]Ordered By: Mick Branch on 09-17-2023 Erythrocyte distribution width (RBC) [Ratio] 17.4 % High 12.0-14.8 [facility] Ferritin [Mass/volume] in Se rum or PlasmaOrdered By: Mick Branch on 09-17-2023 Ferritin [Mass/Vol] 23.4 ng/mL Low 23.9-336.[address] [facility] Globulin Calc (S) [Mass/Vol] Ordered By: Mick Branch on 09-17-2023 Globulin (S) [Mass/Vol] 2.7 g/dL [facility] Glucose [Mass/volume] in Ser um or PlasmaOrdered By: Mick Branch on 09-17-2023 Glucose [Mass/Vol] 78 mg/dL 70-100 [facility] Comment on above: ADA recommended refe rence rangeRandom Glucose Reference Range is dependent on time and content of last meal. Glucose of more than 200 mg/dL in a nonstressed, ambulatory subject supports the diagnosis of Diabetes Mellitus. Hematocrit Auto (Bld) [Volum e fraction]Ordered By: Mick Branch on 09-17-2023 Hematocrit (Bld) [Volume fraction] 37.4 % Low 38.8-50.0 [facility] Hemoglobin [Mass/volume] in BloodOrdered By: Mick Branch on 09-17-2023 Hemoglobin (Bld) [Mass/Vol] 12.1 g/dL Low 13.0-17.0 [facility] INR in Platelet poor plasma by Coagulation assayOrdered By: Mick Branch on 09-17-2023 INR Coag (PPP) [Relative time] 1.1 {INR} [facility] Comment on above: INR Therapeutic [...] on 09-17-2023 Iron [Mass/Vol] 52 ug/dL 50-212 [facility] Iron binding capacity [Mass/ volume] in Serum or PlasmaOrdered By: Mick Branch on 09-17-2023 Iron binding capacity [Mass/Vol] 496 ug/dL High 255-450 [facility] Iron saturation [Mass Fracti on] in Serum or PlasmaOrdered By: Mick Branch on 09-17-2023 Iron saturation [Mass fraction] 10.5 % Low 20-50 [facility] Leukocytes [#/volume] correc britt for nucleated erythrocytes in Blood by Automated counOrdered By: Mick Branch on 09-17-2023 WBC corrected for nucl RBC Auto (Bld) [#/Vol] 3.2 10*3/uL Low 4.1-10.5 [facility] Lymphocytes Auto (Bld) [#/Vo l]Ordered By: Mick Branch on 09-17-2023 Lymphocytes (Bld) [#/Vol] N/A [facility] Lymphocytes/100 WBC Auto (Bl d)Ordered By: Mick Branch on 09-17-2023 Lymphocytes/100 WBC (Bld) N/A [facility] Lymphocytes/100 WBC Manual c nt (Bld)Ordered By: Mick Branch on 09-17-2023 Lymphocytes/100 WBC (Bld) 25 % 18-42 [facility] MCH Auto (RBC) [Entitic mass ]Ordered By: Mick Branch on 09-17-2023 MCH (RBC) [Entitic mass] 27.4 pg Low 27.5-35.2 [facility] MCHC Auto (RBC) [Mass/Vol]Or dered By: Mick Branch on 09-17-2023 MCHC (RBC) [Mass/Vol] 32.2 g/dL Low 32.5-35.6 [facility] MCV Auto (RBC) [Entitic vol] Ordered By: Mick Branch on 09-17-2023 MCV (RBC) [Entitic vol] 85.0 fL 83.5-101 [facility] Macrocytes LM Ql (Bld)Ordere d By: Mick Branch on 09-17-2023 Macrocytes Ql (Bld) Slight [facility] Microcytes LM Ql (Bld)Ordere d By: Mick Branch on 09-17-2023 Microcytes Ql (Bld) Slight [facility] Monocytes Auto (Bld) [#/Vol] Ordered By: Mick Branch on 09-17-2023 Monocytes (Bld) [#/Vol] N/A [facility] Monocytes/100 WBC Auto (Bld) Ordered By: Mick Branch on 09-17-2023 Monocytes/100 WBC (Bld) N/A [facility] Monocytes/100 WBC Manual cnt (Bld)Ordered By: Mick Branch on 09-17-2023 Monocytes/100 WBC (Bld) 8 % 2-11 [facility] Neutrophils Auto (Bld) [#/Vo l]Ordered By: Mick Branch on 09-17-2023 Neutrophils (Bld) [#/Vol] N/A [facility] Neutrophils/100 WBC Auto (Bl d)Ordered By: Mick Branch on 09-17-2023 Neutrophils/100 WBC (Bld) N/A [facility] No Panel InformationOrdered By: Mick Branch on 09-17-2023 Estimated GFR (CKD-EPI) > 60.0 mL/Min [facility] Creatinine Clearance (Chem N/A [facility] Nucleated erythrocytes [Pres ence] in Blood by Automated countOrdered By: Mick Branch on 09-17-2023 Nucleated RBC Auto Ql (Bld) N/A [facility] Ovalocyte detectionOrdered B y: Mick Branch on 09-17-2023 Ovalocytes LM Ql (Bld) Slight [facility] Platelet adequacy [Presence] in Blood by Light microscopyOrdered By: Mick Branch on 09-17-2023 Platelets LM Ql (Bld) Decreased Normal Fir [facility] Platelet mean volume Auto (B ld) [Entitic vol]Ordered By: Mick Branch on 09-17-2023 Platelet mean volume (Bld) [Entitic vol] 8.9 fL 6.6-10.1 [facility] Platelet morphology finding [Identifier] in BloodOrdered By: Mick Branch on 09-17-2023 Platelet morphology finding Nom (Bld) Normal Normal [facility] Platelets Auto (Bld) [#/Vol] Ordered By: Mick Branch on 09-17-2023 Platelets (Bld) [#/Vol] 112 10*3/uL Low 150-450 [facility] Poikilocytosis [Presence] in Blood by Light microscopyOrdered By: Mick Branch on 09-17-2023 Poikilocytosis LM Ql (Bld) Slight [facility] Potassium [Moles/volume] in Serum or PlasmaOrdered By: Mick Branch on 09-17-2023 Potassium [Moles/Vol] 4.3 mmol/L 3.5-5.1 [facility] Protein [Mass/volume] in Ser um or PlasmaOrdered By: Mick Branch on 09-17-2023 Protein [Mass/Vol] 6.6 g/dL 6.4-8.9 [facility] Prothrombin time (PT)Ordered By: Mick Branch on 09-17-2023 PT Coag (PPP) [Time] 13.1 s High 9.0-12.9 [facility] Comment on above: A hematocrit value g reater than 55% may lead to inaccurate results in coagulation testing. Patients having hematocrit values >55% require a special collection tube for coagulation studies. Please contact the laboratory at [phone] for redraw instructions. RBC Auto (Bld) [#/Vol]Ordere d By: Mick Branch on 09-17-2023 RBC (Bld) [#/Vol] 4.40 10*6/uL 3.90-5.[address] [facility] RBC morphologyOrdered By: Kimberly Branch on 09-17-2023 RBC morphology finding Nom (Bld) N/A [facility] Segmented neutrophils/100 WB C Manual cnt (Bld)Ordered By: Mick Branch on 09-17-2023 Segmented neutrophils/100 WBC (Bld) 63 % 50-70 [facility] Serum or plasma albumin/glob ulin mass ratioOrdered By: Mick Branch on 09-17-2023 Albumin/Globulin [Mass ratio] 1.4 {ratio} [facility] Serum or plasma [id number] protein tumor marker measurement (mass/volume)Ordered By: Mick Branch on 09-17-2023 AFP.tumor marker [Mass/Vol] 3.0 ng/mL 0.0-8.4 [facility] Comment on above: [facility] El ectrochemiluminescence Immunoassay(ECLIA)Values obtained with different assay methods or kits cannotbe used interchangeably. Results cannot be interpreted asabsolute evidence of the presence or absence of malignantdisease.This test is not interpretable in females.Performed at: [facility] [id number] Director: Charlie Klein PhD, Phone: [phone] Serum or plasma anion gap de terminationOrdered By: Mick Branch on 09-17-2023 Anion gap [Moles/Vol] 8.8 mmol/L 6.0-15.0 [facility] Sodium [Moles/volume] in Ser um or PlasmaOrdered By: Mick Branch on 09-17-2023 Sodium [Moles/Vol] 143 mmol/L 136-145 [facility] Transferrin [Mass/volume] in Serum or PlasmaOrdered By: Mick Branch on 09-17-2023 Transferrin [Mass/Vol] 354 mg/dL 203-362 [facility] Urea nitrogen [Mass/volume] in Serum or PlasmaOrdered By: Mick Branch on 09-17-2023 Urea nitrogen [Mass/Vol] 20 mg/dL 7-25 [facility] WBC Auto (Bld) [#/Vol]Ordere d By: Mick Branch on 09-17-2023 WBC (Bld) [#/Vol] 3.4 10*3/uL Low 4.1-10.5 [facility] ECG 12 Leadon 06-20-2023 Sinus rhythm, rightw stephanie axis, bigeminal PVCs, anteroseptal infarction pattern age indeterminant, abnormal ECG [facility] Work Phone: Albumin [Mass/volume] in Ser um or PlasmaOrdered By: Zoila Castorena on 08-08-2022 Albumin [Mass/Vol] 3.0 g/dL 2.9-4.4 [facility] Folate [Mass/volume] in Seru m or PlasmaOrdered By: Zoila Castorena on 08-08-2022 Folate [Mass/Vol] 40.0 ng/mL >5.9 [facility] Comment on above: Folate reference ran ge: >5.9 ng/mlThe WHO technical consultation on folate and vitamin [id number] has determined that folate concentrations lessthan 4 ng/ml are considered deficient. Haptoglobin [Mass/volume] in Serum or PlasmaOrdered By: Zoila Castorena on 08-08-2022 Haptoglobin [Mass/Vol] 58 mg/dL 44-215 [facility] Lactate dehydrogenase [Enzym atic activity/volume] in Serum or Plasma by Lactate to pyOrdered By: Zoila Castorena on 08-08-2022 LDH Lactate to pyruvate reaction [Catalytic activity/Vol] 221 U/L 140-271 [facility] No Panel InformationOrdered By: Zoila Castorena on 08-08-2022 Protein Electrophoresis M-oJse Not observed g/dL Not Observed [facility] Protein Electrophoresis Note See comment . [facility] Comment on above: Protein electrophore sis scan will follow via computer,mail, or line out worker delivery.Performed at: [facility] [id number] Director: Charlie Klein PhD, Phone: [phone] Protein [Mass/volume] in Ser um or PlasmaOrdered By: Zoila Castorena on 08-08-2022 Protein [Mass/Vol] 6.0 g/dL 6.0-8.5 [facility] Serum globulin measurement ( mass/volume)Ordered By: Zoila Castorena on 08-08-2022 Globulin (S) [Mass/Vol] 3.0 g/dL 2.2-3.9 [facility] Serum or plasma albumin/glob ulin mass ratioOrdered By: Zoila Castorena on 08-08-2022 Albumin/Globulin [Mass ratio] 1.0 {ratio} 0.7-1.7 [facility] Serum or plasma alpha 1 glob ulin measurement by electrophoresis (mass/volume)Ordered By: Zoila Castorena on 08-08-2022 Alpha 1 globulin Elph [Mass/Vol] 0.2 g/dL 0.0-0.4 [facility] Serum or plasma alpha 2 glob ulin measurement by electrophoresis (mass/volume)Ordered By: Zoila Castorena on 08-08-2022 Alpha 2 globulin Elph [Mass/Vol] 0.7 g/dL 0.4-1.0 [facility] Serum or plasma beta globuli n measurement by electrophoresis (mass/volume)Ordered By: Zoila Sanfordse on 08-08-2022 Beta globulin Elph [Mass/Vol] 1.2 g/dL 0.7-1.3 [facility] Serum or plasma gamma globul in measurement by electrophoresis (mass/volume)Ordered By: Zoila Sanfordse on 08-08-2022 Gamma globulin Elph [Mass/Vol] 1.0 g/dL 0.4-1.8 [facility] Vitamin B12 ser/plasOrdered By: Zoila Sanfordse on 08-08-2022 Cobalamin (Vitamin B12) [Mass/Vol] 481 pg/mL 180-914 [facility] ECHOCARDIO M/2D COMPLETEon 0 11-08-2021 ECHOCARDIO M/2D COMPLETE Patient: PANKAJ PAYNE Exam Date: 11/08/2021 : 1945 Gender:M Ordering : DR KARL MENON M.D. Admission #: [id number] Family : DR FRANTZ CONLEY M.D. Order #: [id number] CLICK HERE TO VIEW EXAM ECHOCARDIOGRAM REPORT [...] Menon M.D. on 11/08/2021 at 16:55 Normal [facility] Creatinine and Glomerular fi ltration rate.predicted panel (S/P/Bld)Ordered By: Frantz Conley on 10-10-2021 Creatinine [Mass/Vol] 1.11 mg/dL 0.64-1.27 [facility] Estimated glomerular filtrat ion rate (GFR) non- AmericanOrdered By: Frantz Conley on 10-10-2021 GFR/1.73 sq M.predicted among non-blacks MDRD (S/P/Bld) [Vol rate/Area] > 60 mL/Min [facility] No Panel InformationOrdered By: Frantz Conley on 10-10-2021 Estimated GFR () > 60 mL/Min [facility] Comment on above: GFR estimated refere nce range: According to KDOQI guidelines, <60 ml/min/1.73m2 is sufficient to diagnose a patient with chronic kidney disease. Pharmacy Creatinine Clearance (Chem N/A [facility] Serum or plasma urea nitroge n measurement (mass/volume)Ordered By: Frantz Conley on 10-10-2021 Urea nitrogen [Mass/Vol] 16 mg/dL 12-15 [facility] COVID-19 Positive/NegativeOr dered By: Mick Branch on 09-15-2021 SARS-CoV-2 (COVID-19) N gene GÓMEZ+probe Ql (Resp) Negative Negative [facility] Comment on above: Testing for SARS-CoV -2 by RT-PCR This test was developed and its performance characteristics determined by [employer] and validated at the [facility]. This test has not been [...] Basic Metab w/rfx MGon 08-17 (cont.) Normal [facility] Comment on above: Result Comment: Aver age GFR for 70 or more years old: 75 mL/min/1.73sq m Chronic Kidney Disease: <60 mL/min/1.73sq m Kidney failure: <15 mL/min/1.73sq m eGFR calculated using average adult body mass. Additional eGFR calculator available at: http://www.[employer].Changelight/multiple_crcl_2012.htm Performed By: #### C DP, BMPX #### [address] [id number] [employer] Product Owner: Tony Yanez MD Anion gap [Moles/Vol] 9 mmol/L Normal 9-17 [facility] Comment on above: Performed By: #### C DP, BMPX #### [address] [address] [employer] Product Owner: Tony Yanez MD Calcium [Mass/Vol] 9.0 mg/dL Normal 8.6-10.4 [facility] Comment on above: Performed By: #### C DP, BMPX #### [address] [address] [employer] Product Owner: Tony Yanez MD Chloride [Moles/Vol] 107 mmol/L Normal 98-107 [facility] Comment on above: Performed By: #### C DP, BMPX #### [address] [address] [employer] Product Owner: Tony Yanez MD CO2 [Moles/Vol] 23 mmol/L Normal 20-31 [facility] Comment on above: Performed By: #### C DP, BMPX #### [address] [address] [employer] Product Owner: Tony Yanez MD Creatinine [Mass/Vol] 0.83 mg/dL Normal 0.70-1.20 [facility] Comment on above: Performed By: #### C DP, BMPX #### [facility] [employer] [address] [place] [address] [employer] Product Owner: Tony Ynaez MD GFR, Amer >60 Normal >60 [facility] Comment on above: Performed By: #### C DP, BMPX #### [facility] [employer] [address] [place] [phone] [employer] Product Owner: Tony Yanez MD GFR,non Amer >60 Normal >60 [facility] Comment on above: Performed By: #### C DP, BMPX #### [address] [address] [employer] Product Owner: Tony Yanez MD Glucose [Mass/Vol] 91 mg/dL Normal 70-99 [facility] Comment on above: Performed By: #### C DP, BMPX #### [facility] [employer] [address] [place] [address] [employer] Product Owner: Tony Yanez MD Potassium [Moles/Vol] 4.3 mmol/L Normal 3.7-5.3 [facility] Comment on above: Performed By: #### C DP, BMPX #### [address] [address] [employer] Product Owner: Tony Yanez MD Sodium [Moles/Vol] 139 mmol/L Normal 135-144 [facility] Comment on above: Performed By: #### C DP, BMPX #### [facility] [employer] [address] [place] [address] [employer] Product Owner: Tony Yanez MD Urea nitrogen [Mass/Vol] 17 mg/dL Normal 8-23 [facility] Comment on above: Performed By: #### C DP, BMPX #### [facility] [employer] [address] [place] [phone] [employer] Product Owner: Tony Yanez MD Basic Metabolic Panel w/ Ref nehemias to MGon 08-17-2021 Anion gap [Moles/Vol] 9 mmol/L 9 - 17 mmol/L [facility] Calcium [Mass/Vol] 9.0 mg/dL 8.6 - 10. 4 mg/dL [facility] Chloride [Moles/Vol] 107 mmol/L 98 - 10 7 mmol/L [facility] CO2 [Moles/Vol] 23 mmol/L 20 - 31 mmol/L [facility] Creatinine [Mass/Vol] 0.83 mg/dL 0.70 - 1.20 mg/dL [facility] GFR >60 >60 mL/min [facility] GFR Non- >60 >60 mL/min [facility] GFR/1.73 sq M.predicted MDRD (S/P/Bld) [Vol rate/Area] [facility] Comment on above: Average GFR for 70 o r more years old: 75 mL/min/1.73sq m Chronic Kidney Disease: <60 mL/min/1.73sq m Kidney failure: <15 mL/min/1.73sq m eGFR calculated using average adult body mass. Additional eGFR calculator available at: http://www.[employer]/multiple_crcl_2011.htm Glucose [Mass/Vol] 91 mg/dL 70 - 99 mg/dL [facility] Potassium [Moles/Vol] 4.3 mmol/L 3.7 - 5.3 mmol/L [facility] Sodium [Moles/Vol] 139 mmol/L 135 - 144 mmol/L [facility] Urea nitrogen (BldV) [Mass/Vol] 17 mg/dL 8 - 23 mg/dL [facility] CBC with Auto Differentialon 08-17-2021 Absolute Eos # 0.11 [facility] Absolute Immature Granulocyte <0.03 [facility] Absolute Lymph # 1.10 [facility] Absolute [place] # 0.53 [facility] Basophils (Bld) [#/Vol] 0.03 10*3/uL [facility] Basophils/100 WBC (Bld) 1 % 0 - 2 % [facility] Eosinophils/100 WBC (Bld) 2 % 1 - 4 % [facility] Hematocrit (Bld) [Volume fraction] 36.2 % Low 40.7 - 50.3 % [facility] Hemoglobin.gastrointes tinal spec 1 Ql (Stl) 12.1 g/dL Low 13.0 - 17.0 g/dL [facility] Immature granulocytes/100 WBC (Bld) 0 % 0 [facility] Interpretation and review of laboratory results Abnormal [facility] Lymphocytes/100 WBC (Bld) 22 % Low 24 - 43 % [facility] MCH (RBC) [Entitic mass] 31.1 pg 25.2 - 33.5 pg [facility] MCHC (RBC) [Mass/Vol] 33.4 g/dL 28.4 - 34.8 g/dL [facility] MCV (RBC) [Entitic vol] 93.1 fL 82.6 - 102.9 fL [facility] Monocytes/100 WBC (Bld) 11 % 3 - 12 % [facility] NRBC Automated 0.0 0.0 per 100 WBC [facility] Platelet distribution width (Bld) [Ratio] 13.2 % 11.8 - 14.4 % [facility] Platelet mean volume (Bld) [Entitic vol] 11.2 fL 8.1 - 13.5 fL [facility] Platelets (Bld) [#/Vol] 94 10*3/uL Low [facility] RBC (Bld) [#/Vol] 3.89 10*6/uL Low 4.21 - 5.77 m/uL [facility] Segmented neutrophils/100 WBC (Bld) 64 % 36 - 65 % [facility] Segs Absolute 3.14 [facility] WBC (Bld) [#/Vol] 4.9 10*3/uL [facility] CBC with Diffon 08-17-2021 Abs. Basophil 0.03 k/uL Normal 0.00-0.20 [facility] Comment on above: Performed By: #### C ITA BMPX #### [employer] [address] [place] [address] [employer] Product Owner: Tony Yanez MD Abs.Imm.Granulocyte <0.03 Normal 0.00-0.30 [facility] Comment on above: Performed By: #### C ITA BMPX #### [address] [address] [employer] Product Owner: Tony Yanez MD Abs.Neutrophil (Seg) 3.14 k/uL Normal 1.50-8.10 [facility] Comment on above: Performed By: #### C DP, BMPX #### [address] [address] [employer] Product Owner: Tony Yanez MD Basophils/100 WBC (Bld) 1 % Normal 0-2 [facility] Comment on above: Performed By: #### C DP, BMPX #### [place] [address] [employer] Product Owner: Tony Yanez MD Eosinophils (Bld) [#/Vol] 0.11 10*3/uL Normal 0.00-0.44 [facility] Comment on above: Performed By: #### C DP, BMPX #### [address] [address] [employer] Product Owner: Tony Yanez MD Eosinophils/100 WBC (Bld) 2 % Normal 1-4 [facility] Comment on above: Performed By: #### C DP, BMPX #### [address] [address] [employer] Product Owner: Tony Yanez MD Erythrocyte distribution width (RBC) [Ratio] 13.2 % Normal 11.8-14.4 [facility] Comment on above: Performed By: #### C DP, BMPX #### [facility] [employer] [address] [place] [phone] [employer] Product Owner: Tony Yanez MD Hematocrit (Bld) [Volume fraction] 36.2 % Low 40.7-50.3 [facility] Comment on above: Performed By: #### C DP, BMPX #### [facility] [employer] [address] [place] [address] [employer] Product Owner: Tony Yanez MD Hemoglobin (Bld) [Mass/Vol] 12.1 g/dL Low 13.0-17.0 [facility] Comment on above: Performed By: #### C DP, BMPX #### [address] [address] [employer] Product Owner: Tony Yanez MD Immature granulocytes/100 WBC (Bld) 0 % Normal 0 [facility] Comment on above: Performed By: #### C DP, BMPX #### [address] [address] [employer] Product Owner: Tnoy Yanez MD Lymphocytes (Bld) [#/Vol] 1.10 10*3/uL Normal 1.10-3.70 [facility] Comment on above: Performed By: #### C DP, BMPX #### [address] [address] [employer] Product Owner: Tony Yanez MD Lymphocytes/100 WBC (Bld) 22 % Low 24-43 [facility] Comment on above: Performed By: #### C DP, BMPX #### [address] [address] [employer] Product Owner: Tony Yanez MD MCH (RBC) [Entitic mass] 31.1 pg Normal 25.2-33.5 [facility] Comment on above: Performed By: #### C DP, BMPX #### [address] [address] [employer] Product Owner: Tony Yanez MD MCHC (RBC) [Mass/Vol] 33.4 g/dL Normal 28.4-34.8 [facility] Comment on above: Performed By: #### C DP, BMPX #### [address] [address] [employer] Product Owner: Tony Yanez MD MCV (RBC) [Entitic vol] 93.1 fL Normal 82.6-102.9 [facility] Comment on above: Performed By: #### C DP, BMPX #### [address] [address] [employer] Product Owner: Tony Yanez MD Monocytes (Bld) [#/Vol] 0.53 10*3/uL Normal 0.10-1.20 [facility] Comment on above: Performed By: #### C DP, BMPX #### [address] [address] [employer] Product Owner: Tony Yanez MD Monocytes/100 WBC (Bld) 11 % Normal 3-12 [facility] Comment on above: Performed By: #### C DP, BMPX #### [place] [address] [employer] Product Owner: Tony Yanez MD Neutrophil (Seg) 64 % Normal 36-65 [facility] Comment on above: Performed By: #### C DP, BMPX #### [address] [address] [employer] Product Owner: Tony Yanez MD NRBC Automated 0.0 per 100 WBC Normal 0.0 [facility] Comment on above: Performed By: #### C DP, BMPX #### [place] [address] [employer] Product Owner: Tony Yanez MD Platelet mean volume (Bld) [Entitic vol] 11.2 fL Normal 8.1-13.5 [facility] Comment on above: Performed By: #### C DP, BMPX #### [address] [address] [employer] Product Owner: Tony Yanez MD Platelets (Bld) [#/Vol] 94 10*3/uL Low 138-453 [facility] Comment on above: Performed By: #### C DP, BMPX #### [employer] [address] [place] [address] [employer] Product Owner: Tony Yanez MD RBC (Bld) [#/Vol] 3.89 10*6/uL Low 4.21-5.77 [facility] Comment on above: Performed By: #### C DP, BMPX #### [facility] [address] [place] [address] [employer] Product Owner: Tony Yanez MD WBC (Bld) [#/Vol] 4.9 10*3/uL Normal 3.5-11.3 [facility] Comment on above: Performed By: #### C DP, BMPX #### [facility] [address] [place] [address] [employer] Product Owner: Tony Yanez MD CT FACIAL BONES WO [...] SYSTEM PROVIDED HISTORY: Impact with object riding province archivist TECHNOLOGIST PROVIDED HISTORY: Impact with object riding province archivist Decision Support Exception - unselect if not [...] Augustin Hodges MD 08/16/21 Final result Normal [facility] MRSA DNA Probe, Nasalon - MRSA, DNA, Nasal Negative NEGATIVE [facility] Comment on above: NEGATIVE: MRSA DNA n ot detected by nucleic acid amplification. Results should be used as an adjunct to nosocomial control efforts to identify patients needing enhanced precautions. The test is not intended to identify patients with staphylococcal infections. Results should not be used to guide or monitor treatment for MRSA infections. Specimen Description .NASAL SWAB [facility] MRSA, DNA, Nasalon MRSA, DNA, Nasal Negative Normal NEG [facility] Comment on above: Result Comment: NEGA TIVE: MRSA DNA not detected by nucleic acid amplification. Results should be used as an adjunct to nosocomial control efforts to identify patients needing enhanced precautions. The test is not intended to identify patients with staphylococcal infections. Results should not be used to guide or monitor treatment for MRSA infections. Performed By: #### M RSANO #### [facility] [employer] [address] [place] [phone] [employer] Product Owner: Tony Yanez MD Specimen Description .NASAL SWAB Normal [facility] Comment on above: Performed By: #### M RSANO #### [facility] [employer] [address] [place] [phone] [employer] Product Owner: Tony Yanez MD CBC AUTO DIFFon 08-16-2021 BASO # 0.0 103/ul Normal 0.0-0.1 [facility] Comment on above: Performed By: #### C VDTBH #### [facility] [address] [address] [address] Natalya Arthur Basophils/100 WBC (Bld) 0.6 % Normal 0.2-2.0 [facility] Comment on above: Performed By: #### C VDTBH #### [facility] [address] [place] [address] Dr. Natalya Arthur EO # 0.1 103/ul Normal 0.0-0.7 [facility] Comment on above: Performed By: #### C VDTBH #### [facility] [address] [place] [address] Dr. Natalya Arthur Eosinophils/100 WBC (Bld) 1.9 % Normal 0.9-7.0 [facility] Comment on above: Performed By: #### C VDTBH #### [facility] [address] [place] [address] Dr. Natalya Arthur Erythrocyte distribution width (RBC) [Ratio] 13.1 % Normal 11.0-15.0 [facility] Comment on above: Performed By: #### C VDTBH #### [facility] [address] [place] [address] Dr. Natalya Arthur Hematocrit (Bld) [Volume fraction] 38.5 % Critically low 42.0-54.0 [facility] Comment on above: Performed By: #### C VDTBH #### [facility] [address] [place] [address] Dr. Natalya Arthur Hemoglobin (Bld) [Mass/Vol] 12.7 g/dL Critically low 14.0-18.0 [facility] Comment on above: Performed By: #### C VDTBH #### [facility] [address] [place] [address] Dr. Natalya Arthur IG # 0.03 10e3/ul Normal 0.00-0.03 [facility] Comment on above: Performed By: #### C VDTBH #### [facility] [address] [place] [address] Dr. Natalya Arthur IG % 0.6 % Critically high 0.0-0.5 [facility] Comment on above: Performed By: #### C VDTBH #### [facility] [address] [place] [address] Dr. Natalya Arthur LYMPH # 0.8 103/ul Critically low 1.2-3.8 [facility] Comment on above: Performed By: #### C VDTBH #### [facility] [address] [address] [address] Natalya Arthur Lymphocytes/100 WBC (Bld) 15.3 % Critically low 20.5-60.0 [facility] Comment on above: Performed By: #### C VDTBH #### [facility] [address] [address] [address] Natalya Arthur MANUAL DIFF REQ NO Normal [facility] Comment on above: Performed By: #### C VDTBH #### [facility] [address] [address] [address] Natalya Arthur MCH (RBC) [Entitic mass] 31.0 pg Normal 25.9-34.0 [facility] Comment on above: Performed By: #### C VDTBH #### [facility] [address] [place] [address] Dr. Natalya Arthur MCHC (RBC) [Mass/Vol] 33.0 g/dL Normal 29.9-35.2 [facility] Comment on above: Performed By: #### C VDTBH #### [facility] [address] [address] [address] Natalya Arthur MCV (RBC) [Entitic vol] 93.9 fL Normal 80.0-94.0 [facility] Comment on above: Performed By: #### C VDTBH #### [facility] [address] [place] [address] Dr. Natalya Arthur MONO # 0.4 103/ul Normal 0.3-0.8 [facility] Comment on above: Performed By: #### C VDTBH #### [facility] [address] [address] [address] Natalya Arthur Monocytes/100 WBC (Bld) 8.0 % Normal 1.7-12.0 [facility] Comment on above: Performed By: #### C VDTBH #### [facility] [address] [address] [address] Natalya Arthur NEUT # 3.8 103/ul Normal 1.4-6.5 [facility] Comment on above: Performed By: #### C VDTBH #### [facility] [address] [address] [address] Natalya Arthur Neutrophils/100 WBC (Bld) 73.6 % Normal 43.0-75.0 [facility] Comment on above: Performed By: #### C VDTBH #### [facility] [address] [address] [address] Natalya Arthur Platelet mean volume (Bld) [Entitic vol] 10.8 fL Normal 9.5-13.5 [facility] Comment on above: Performed By: #### C VDTBH #### [facility] [address] [place] [address] Dr. Natalya Arthur PLT 100 103/ul Critically low 150-450 [facility] Comment on above: Performed By: #### C VDTBH #### [facility] [address] [place] [address] Dr. Natalya Arthur RBC 4.10 106/ul Critically low 4.70-6.10 [facility] Comment on above: Performed By: #### C VDTBH #### [facility] [address] [place] [address] Dr. Natalya Arthur WBC 5.2 103/ul Normal 4.0-11.0 [facility] Comment on above: Performed By: #### C VDTBH #### [facility] [address] [place] [address] CSPINE WO CONon [...] degenerative facet arthropathy. Electronically authenticated by: ARTHURMAGGY ÓLPEZ Date: 2021-08-16 17:00 Normal [facility] CT FACIAL BONES WO CONTRASTo n 08-16-2021 No acute facial frac ture. Soft tissue swelling and ecchymosis of the left face and scalp. [facility] EXAMINATION: CT OF THE FACE WITHOUT [...] SYSTEM PROVIDED HISTORY: Impact with object riding province archivist TECHNOLOGIST PROVIDED HISTORY: Impact with object riding province archivist Decision Support Exception - unselect if not [...] focus of subcutaneous emphysema left periorbital region. [facility] Augustin Hodges MD - 08/16/2021 EXAMINATION: [...] SYSTEM PROVIDED HISTORY: Impact with object [place] archivist TECHNOLOGIST PROVIDED HISTORY: Impact with object [place] archivist Decision Support Exception - unselect if not [...] ecchymosis of the left face and scalp. [employer] Work Phone: CT FACIAL BONES WO CONTRASTO rdered By: Augustin Hodges on 08-16-2021 [employer] Work Phone: CT HEAD WO CONon 08-16-2021 [...] SUKH CROFT Date: 2021-08-16 15:37 Normal [facility] CT HEAD WO CONTRASTon 2021 CT [...] Hardeep Godwin MD 08/16/21 Final result Normal [facility] Minimal left frontal subarachnoid hemorrhage in 1 of the sulci. No evidence of extra-axial collections. Prominent left frontal and parietal scalp swelling/hemorrhage. The findings were sent to the Radiology Results Communication Center at 9:22 pm on 08/16/2021 to be communicated to a licensed caregiver. [facility] EXAMINATION: CT OF THE HEAD WITHOUT [...] TISSUES/SKULL: There is left frontoparietal scalp swelling/hemorrhage. [facility] Hardeep Godwin MD - 08/16/2021 EXAMINATION: [...] to be communicated to a licensed caregiver. true[x] Media Phone: CT HEAD WO CONTRASTOrdered B y: Hardeep Godwin on 08-16-2021 true[x] Media Phone: Covid-19 PCR (CVDTB)on 07-24 SARS-CoV-2 (COVID-19) RNA GÓMEZ+probe Ql (Unsp spec) Not detected Normal NOT DETECTED [facility] Comment on above: Result Comment: This test is not yet approved or cleared by the [place] FDA. When there are no FDA-approved or cleared tests available, and other criteria are met, FDA can make tests available under an emergency access mechanism called an Emergency Use Authorization (EUA). The EUA for this test is supported by the [place] of Health and Human Service's (HHS's) declaration [...] consistent with SARS-CoV-2. Performed By: #### C [facility] #### [facility] [address] [place] [address] Dr. Natalya Arthur No Panel Informationon 08-16 Radiology Study observation (narrative) CAROL ANN DOWNS [employer] Work Phone: PROF CHEM 8 (BAS METB)on Anion gap [Moles/Vol] 13.6 mmol/L Normal [facility] Comment on above: Performed By: #### C VDTBH #### [facility] [address] [place] [address] Dr. Natalya Arthur Calcium [Mass/Vol] 9.0 mg/dL Normal 8.5-10.1 [facility] Comment on above: Performed By: #### C VDTBH #### [facility] [address] [place] [address] Dr. Natalya Arthur Chloride [Moles/Vol] 107 mmol/L Normal 98-107 [facility] Comment on above: Performed By: #### C VDTBH #### [facility] [address] [place] [address] Dr. Natalya Arthur CO2 [Moles/Vol] 24.4 mmol/L Normal 21.0-32.0 [facility] Comment on above: Performed By: #### C VDTBH #### [facility] [address] [place] [address] Dr. Natalya Arthur Creatinine [Mass/Vol] 1.09 mg/dL Normal 0.70-1.30 [facility] Comment on above: Performed By: #### C VDTBH #### [facility] [address] [place] [address] Dr. Natalya Arthur EGFR-AF GHANAIAN >60 Normal >=60 [facility] Comment on above: Performed By: #### C VDTBH #### [facility] [address] [place] [address] Dr. Natalya Arthur EGFR-NON AF GHANAIAN >60 Normal >=60 [facility] Comment on above: Performed By: #### C VDTBH #### [facility] [address] [place] [address] Dr. Natalya Arthur Glucose [Mass/Vol] 111 mg/dL Critically high 74-106 [facility] Comment on above: Performed By: #### C VDTBH #### [facility] [address] [place] [address] Dr. Natalya Arthur Potassium [Moles/Vol] 4.0 mmol/L Normal 3.5-5.1 [facility] Comment on above: Performed By: #### C VDTBH #### [facility] [address] [place] [address] Dr. Natalya Arthur Sodium [Moles/Vol] 141 mmol/L Normal 136-145 [facility] Comment on above: Performed By: #### C VDTBH #### [facility] [address] [place] [address] Dr. Natalya Arthur Urea nitrogen [Mass/Vol] 21.0 mg/dL Critically high 7.0-18.0 [facility] Comment on above: Performed By: #### C VDTBH #### [facility] [address] [place] [address] Dr. Natalya Arthur Urea nitrogen/Creatinine [Mass ratio] 19.3 mg/mg Normal [facility] Comment on above: Performed By: #### C VDTBH #### [facility] [address] [place] [address] Dr. Natalya Arthur PROTIMEon 08-16-2021 INR Coag (PPP) [Relative time] 1.12 {INR} Normal [facility] Comment on above: Performed By: #### F ETIBC, FERR #### [facility] [address] [place] [address] Dr. Natalya Arthur INR GUIDELINES SEE BELOW Normal [facility] Comment on above: Result Comment: REFUGIO RED INR: 2.0 - 3.0 CONDITIONS NOT LISTED BELOW 2.5 - 3.5 FOR PROSTHETIC HEART VALVE REPLACEMENT 2.5 - 3.5 RECURRENT THROMBOSIS Performed By: #### F ETIBC, FERR #### [facility] [address] [place] [address] Dr. Natalya Arthur PT Coag (PPP) [Time] 12.0 s Critically high 9.0-11.6 [facility] Comment on above: Performed By: #### F ETIBC, FERR #### [facility] [address] [place] [address] Dr. Natalya Arthur PTTon 08-16-2021 aPTT Coag (Bld) [Time] 28.6 s Normal 22.3-36.2 [facility] Comment on above: Performed By: #### F ETIBC, FERR #### [facility] [address] [place] [address] Dr. Natalya Arthur [id number] 2021 Rosuf-2-Btqyetlhphm, Serum 125 mg/dL Normal 101-187 [facility] Comment on above: Performed By: #### A LPHA-1 #### [facility] [address] [place] [address] Dr. Natalya Arthur BETHANIE EIA W/REFLEX 5 BIOMARKER Son 07-13-2021 BETHANIE Direct Negative Normal Negative [facility] Comment on above: Performed By: #### C VDTBH #### [facility] [address] [place] [address] Dr. Natalya Arthur CERULOPLASMINon 07-13-2021 Ceruloplasmin 19.0 mg/dL Normal 16.0-31.0 [facility] Comment on above: Performed By: #### C EUROPL #### [facility] [address] [place] [address] Dr. Natalya Arthur SMOOTH MUSCLE ANTIBODYon Actin (Smooth Muscle) Antibody 25 Units Critically high 0-19 [facility] Comment on above: Result Comment: Nega tive 0 - 19 Weak positive 20 - 30 Moderate to strong positive >30 . Actin Antibodies are found in 52-85% of patients with autoimmune hepatitis or chronic active hepatitis and in 22% of patients with primary biliary cirrhosis. Performed By: #### C VDTBH #### [facility] [address] [place] [address] Dr. Natalya Arthur CBC AUTO DIFFon 07-12-2021 BASO # 0.0 103/ul Normal 0.0-0.1 [facility] Comment on above: Performed By: #### F ETIBC, FERR #### [facility] [address] [place] [address] Dr. Natalya Arthur Basophils/100 WBC (Bld) 0.4 % Normal 0.2-2.0 [facility] Comment on above: Performed By: #### F ETIBC, FERR #### [facility] [address] [place] [address] Dr. Natalya Arthur EO # 0.2 103/ul Normal 0.0-0.7 [facility] Comment on above: Performed By: #### F ETIBC, FERR #### [facility] [address] [place] [address] Dr. Natalya Arthur Eosinophils/100 WBC (Bld) 4.0 % Normal 0.9-7.0 [facility] Comment on above: Performed By: #### F ETIBC, FERR #### [facility] [address] [place] [address] Dr. Natalya Arthur Erythrocyte distribution width (RBC) [Ratio] 13.8 % Normal 11.0-15.0 [facility] Comment on above: Performed By: #### F ETIBC, FERR #### [facility] [address] [place] [address] Dr. Natalya Arthur Hematocrit (Bld) [Volume fraction] 41.5 % Critically low 42.0-54.0 [facility] Comment on above: Performed By: #### F ETIBC, FERR #### [facility] [address] [place] [address] Dr. Natalya Arthur Hemoglobin (Bld) [Mass/Vol] 13.2 g/dL Critically low 14.0-18.0 [facility] Comment on above: Performed By: #### F ETIBC, FERR #### [facility] [address] [place] [address] Dr. Natalya Arthur IG # 0.02 10e3/ul Normal 0.00-0.03 [facility] Comment on above: Performed By: #### F ETIBC, FERR #### [facility] [address] [place] [address] Dr. Natalya Arthur IG % 0.4 % Normal 0.0-0.5 [facility] Comment on above: Performed By: #### F ETIBC, FERR #### [facility] [address] [place] [address] Dr. Natalya Arthur LYMPH # 0.8 103/ul Critically low 1.2-3.8 [facility] Comment on above: Performed By: #### F ETIBC, FERR #### [facility] [address] [place] [address] Dr. Natalya Arthur Lymphocytes/100 WBC (Bld) 17.0 % Critically low 20.5-60.0 [facility] Comment on above: Performed By: #### F ETIBC, FERR #### [facility] [address] [place] [address] Dr. Natalya Arthur MANUAL DIFF REQ NO Normal [facility] Comment on above: Performed By: #### F ETIBC, FERR #### [facility] [address] [place] [address] Dr. Natalya Arthur MCH (RBC) [Entitic mass] 30.9 pg Normal 25.9-34.0 [facility] Comment on above: Performed By: #### F ETIBC, FERR #### [facility] [address] [place] [address] Dr. Natalya Arthur MCHC (RBC) [Mass/Vol] 31.8 g/dL Normal 29.9-35.2 [facility] Comment on above: Performed By: #### F ETIBC, FERR #### [facility] [address] [place] [address] Dr. Natalya Arthur MCV (RBC) [Entitic vol] 97.2 fL Critically high 80.0-94.0 [facility] Comment on above: Performed By: #### F ETIBC, FERR #### [facility] [address] [place] [address] Dr. Natalya Arthur MONO # 0.5 103/ul Normal 0.3-0.8 [facility] Comment on above: Performed By: #### F ETIBC, FERR #### [facility] [address] [place] [address] Dr. Natalya Arthur Monocytes/100 WBC (Bld) 10.5 % Normal 1.7-12.0 [facility] Comment on above: Performed By: #### F ETIBC, FERR #### [facility] [address] [place] [address] Dr. Natalya Arthur NEUT # 3.2 103/ul Normal 1.4-6.5 [facility] Comment on above: Performed By: #### F ETIBC, FERR #### [facility] [address] [place] [address] Dr. Natalya Arthur Neutrophils/100 WBC (Bld) 67.7 % Normal 43.0-75.0 [facility] Comment on above: Performed By: #### F ETIBC, FERR #### [facility] [address] [place] [address] Dr. Natalya Arthur Platelet mean volume (Bld) [Entitic vol] 10.7 fL Normal 9.5-13.5 [facility] Comment on above: Performed By: #### F ETIBC, FERR #### [facility] [address] [place] [address] Dr. Natalya Arthur PLT 106 103/ul Critically low 150-450 [facility] Comment on above: Result Comment: smea r reviewed Performed By: #### F ETIBC, FERR #### [facility] [address] [place] [address] Dr. Natalya Arthur RBC 4.27 106/ul Critically low 4.70-6.10 [facility] Comment on above: Performed By: #### F ETIBC, FERR #### [facility] [address] [place] [address] Dr. Natalya Arthur WBC 4.8 103/ul Normal 4.0-11.0 [facility] Comment on above: Performed By: #### F ETIBC, FERR #### [facility] [address] [place] [address] Dr. Natalya Arthur FERRITINon 07-12-2021 Ferritin [Mass/Vol] 94.0 ng/mL Normal 17.9-464.0 [facility] Comment on above: Performed By: #### F ETIBC, FERR #### [facility] [address] [place] [address] Dr. Natalya Arthur IRON AND TIBCon 07-12-2021 % SATURATION 26.8 % Normal [facility] Comment on above: Performed By: #### F ETIBC, FERR #### [facility] [address] [place] [address] Dr. Natalya Arthur Iron [Mass/Vol] 106.0 ug/dL Normal 49.0-181.0 [facility] Comment on above: Performed By: #### F ETIBC, FERR #### [facility] [address] [place] [address] Dr. Natalya Arthur TIBC DIRECT 395.0 ug/dL Normal 261.0-497. 0 [facility] Comment on above: Performed By: #### F ETIBC, FERR #### [facility] [address] [place] [address] Dr. Natalya Arthur LIPID PROFILEon 07-12-2021 CHOL-HDL RATIO NORM SEE BELOW Normal [facility] Comment on above: Result Comment: 3.3 - 4.4 LOW RISK 4.4 - 7.1 AVERAGE RISK 7.1 - 11.0 MODERATE RISK >11.0 HIGH RISK Performed By: #### L IVER, LIPID #### [facility] [address] [place] [address] Dr. Natalya Arthur Cholesterol [Mass/Vol] 139 mg/dL Normal <=200 [facility] Comment on above: Performed By: #### L IVER, LIPID #### [facility] [address] [place] [address] Dr. Natalya Arthur Cholesterol in HDL [Mass/Vol] 58 mg/dL Normal 40-60 [facility] Comment on above: Performed By: #### L IVER, LIPID #### [facility] [address] [place] [address] Dr. Natalya Arthur Cholesterol in LDL [Mass/Vol] 58.8 mg/dL Normal [facility] Comment on above: Performed By: #### L IVER, LIPID #### [facility] [address] [place] [address] Dr. Natalya Arthur Cholesterol.total/Chol esterol in HDL [Mass ratio] 2.4 {ratio} Normal [facility] Comment on above: Performed By: #### L IVER, LIPID #### [facility] [address] [address] [address] Natalya Arthur HDL NORMAL > or = 60 mg/dl - LO W CARDIOVASCULAR RISK <40 mg/dl - HIGH CARDIOVASCULAR RISK Normal [facility] Comment on above: Performed By: #### L IVER, LIPID #### [facility] [address] [address] [address] Natalya Arthur LDL CALC NORMAL SEE BELOW Normal [facility] Comment on above: Result Comment: <100 mg/dl OPTIMAL 100 - 129 mg/dl NEAR OR ABOVE OPTIMAL 130 - 159 mg/dl BORDERLINE HIGH 160 - 189 mg/dl HIGH >190 mg/dl VERY HIGH Performed By: #### L IVER, LIPID #### [facility] [address] [address] [address] Natalya Arthur Triglyceride [Mass/Vol] 111 mg/dL Normal <=150 [facility] Comment on above: Performed By: #### L IVER, LIPID #### [facility] [address] [address] [address] Natalya Arthur VLDL CALC 22.2 mg/dL Normal [facility] Comment on above: Performed By: #### L IVER, LIPID #### [facility] [address] [address] [address] Natalya Arthur LIVER PROFILEon 07-12-2021 Albumin [Mass/Vol] 3.4 g/dL Normal 3.4-5.0 [facility] Comment on above: Performed By: #### L IVER, LIPID #### [facility] [address] [address] [address] Natalya Arthur Albumin/Globulin [Mass ratio] 0.9 {ratio} Normal [facility] Comment on above: Performed By: #### L IVER, LIPID #### [facility] [address] [address] [address] Natalya Arthur ALP [Catalytic activity/Vol] 129 U/L Critically high 46-116 [facility] Comment on above: Performed By: #### L IVER, LIPID #### [facility] [address] [address] [address] Natalya Arthur ALT [Catalytic activity/Vol] 72 U/L Critically high 16-63 [facility] Comment on above: Performed By: #### L IVER, LIPID #### [facility] [address] [address] [address] Natalya Arthur AST [Catalytic activity/Vol] 57 U/L Critically high 15-37 [facility] Comment on above: Performed By: #### L IVER, LIPID #### [facility] [address] [address] [address] Natalya Arthur BILI, CONJUGATED 0.2 mg/dL Normal 0.0-0.3 [facility] Comment on above: Performed By: #### L IVER, LIPID #### [facility] [address] [address] [address] Natalya Arthur Bilirubin [Mass/Vol] 0.6 mg/dL Normal 0.2-1.3 [facility] Comment on above: Performed By: #### L IVER, LIPID #### [facility] [address] [address] [address] Natalya Arthur Globulin (S) [Mass/Vol] 3.9 g/dL Normal [facility] Comment on above: Performed By: #### L IVER, LIPID #### [facility] [address] [address] [address] Natalya Arthur Protein [Mass/Vol] 7.3 g/dL Normal 6.1-8.2 [facility] Comment on above: Performed By: #### L IVER, LIPID #### [facility] [address] [address] [address] Natalya Arthur PROTIMEon 07-12-2021 INR Coag (PPP) [Relative time] 1.10 {INR} Normal [facility] Comment on above: Performed By: #### F ETIBC, FERR #### [facility] [address] [address] [address] Natalya Arthur INR GUIDELINES SEE BELOW Normal [facility] Comment on above: Result Comment: REFUGOI RED INR: 2.0 - 3.0 CONDITIONS NOT LISTED BELOW 2.5 - 3.5 FOR PROSTHETIC HEART VALVE REPLACEMENT 2.5 - 3.5 RECURRENT THROMBOSIS Performed By: #### F TONI, FERR #### [facility] [address] [place], [place] [address] Dr. Natalya Arthur PT Coag (PPP) [Time] 11.8 s Critically high 9.0-11.6 [facility] Comment on above: Performed By: #### F TONI, FERR #### [facility] [address] [place], [place] [address] Dr. Natalya Arthur Comprehensive Metabolic Pane ross 06-07-2021 Albumin [Mass/Vol] 3.9 g/dL Normal 3.6-5.1 [facility] Comment on above: Performed By: #### C MP #### [facility] [address] [place], [place] [id number] Albumin/Globulin [Mass ratio] 1.4 {ratio} Normal 1.0-2.5 [facility] Comment on above: Performed By: #### C MP #### [facility] [address] [place], [place] [id number] ALP [Catalytic activity/Vol] 128 U/L Normal 40-129 [facility] Comment on above: Performed By: #### C MP #### [facility] [address] [place], [place] [id number] ALT [Catalytic activity/Vol] 45 U/L Normal 9-46 [facility] Comment on above: Result Comment: 02/22 Female reference range changed. Performed By: #### C MP #### [facility] [address] [place], [place] [id number] Anion gap [Moles/Vol] 15 mmol/L Normal 12-20 [facility] Comment on above: Result Comment: Effe ctive 03/30/2019 reference range changed. Performed By: #### C MP #### [facility] [address] [place], [place] [id number] AST [Catalytic activity/Vol] 49 U/L High 10-40 [facility] Special[facility] Comment on above: Performed By: #### C MP #### [facility] [address] [place], [place] [id number] Bilirubin [Mass/Vol] 0.36 mg/dL Normal 0.30-1.20 [facility] Comment on above: Performed By: #### C MP #### [facility] [address] [place], [place] [id number] BUN/CREA 15 Ratio Normal 6-22 [facility] Comment on above: Performed By: #### C MP #### [facility] [address] [place], [place] [id number] Calcium [Mass/Vol] 9.2 mg/dL Normal 8.6-10.2 [facility] Comment on above: Performed By: #### C MP #### [facility] [address] [place], [place] [id number] Chloride [Moles/Vol] 104 mmol/L Normal 98-107 [facility] Comment on above: Performed By: #### C MP #### [facility] [address] [place], [place] [id number] CO2 [Moles/Vol] 24 mmol/L Normal 20-31 [facility] Comment on above: Performed By: #### C MP #### [facility] [address] [place], [place] [id number] Creatinine [Mass/Vol] 1.0 mg/dL Normal 0.7-1.[address] [facility] Comment on above: Performed By: #### C MP #### [facility] [address] [place], [place] [id number] eGFRAA 90 mL/min/1.73m2 Normal >60 [facility] Comment on above: Performed By: #### C MP #### [facility] [address] [place], [place] [id number] eGFRNAA 74 mL/min/1.73m2 Normal >60 [facility] Comment on above: Performed By: #### C MP #### [facility] [address] [place], [place] [id number] Globulin (S) [Mass/Vol] 2.7 g/dL Normal 1.9-3.7 [facility] Comment on above: Performed By: #### C MP #### [facility] [address] [place], [place] [id number] Glucose [Mass/Vol] 111 mg/dL High 65-99 [facility] Comment on above: Result Comment: For FASTING Glucose --- ADA reference ranges: Normal 65-99 mg/dl Prediabetes 100-125 Diabetes >/= 126 Performed By: #### C MP #### [facility] [address] [place], [place] [id number] Potassium [Moles/Vol] 4.5 mmol/L Normal 3.5-5.[address] [facility] Comment on above: Performed By: #### C MP #### [facility] [address], [place] [id number] Protein [Mass/Vol] 6.6 g/dL Normal 6.1-8.1 [facility] Specialist Comment on above: Performed By: #### C MP #### [facility] [address] [place], [place] [id number] Sodium [Moles/Vol] 139 mmol/L Normal 135-146 [facility] Registered Route Associate Comment on above: Performed By: #### C MP #### [facility] [address] [place], [place] [id number] Urea nitrogen [Mass/Vol] 15 mg/dL Normal 7-25 [facility] Specialist Comment on above: Performed By: #### C MP #### [facility] [address] [place], [place] [id number] Q - HEPATITIS PANEL ABC GENE RAL WITH REFLEXon 06-07-2021 HEPATITIS A AB, TOTAL Non-Reactive Normal NON-RE ACTI VE [facility] Specialist Comment on above: Order Comment: [facility] performed at: [facility] [facility] [employer] [facility], [address] , [address] [place] [address], [place], [address], Certified Tumor Registrar: Sd Sharma MD [facility] Collection Date/Time: [facility] Results Received Date/Time: [facility] Reported Date/Time: Result Comment: For additional information, please refer to http://education.[employer]/faq/PTR862 (This link is being provided for informational/ educational purposes only.) Performed By: #### 6 [id number] #### [facility] [address] [place] [address] HEPATITIS B CORE AB TOTAL Non-Reactive Normal NON-REACTI VE [facility] Specialist Comment on above: Order Comment: [facility] performed at: [employer], [employer] [facility], [address] [facility], [address] [place] [address], [address] [place] [address], Certified Tumor Registrar: Sd Sharma MD [facility] Collection Date/Time: [facility] Results Received Date/Time: [facility] Reported Date/Time: Performed By: #### 6 [id number] #### [facility] [address] [place] [address] HEPATITIS B SURFACE ANTIBODY QL Non-Reactive Normal NON-REACTI VE [facility] Comment on above: Order Comment: [facility] performed at: [employer] [employer] [facility], [address] , [address] [place] [address], [address] [place] [address], Certified Tumor Registrar: Sd Sharma MD [facility] Collection Date/Time: [facility] Results Received Date/Time: [facility] Reported Date/Time: Performed By: #### 6 [id number] #### [facility] [address] [place] [address] HEPATITIS B SURFACE ANTIGEN Non-Reactive Normal NON-REACTI VE [facility] Specialist Comment on above: Order Comment: [facility] performed at: [employer] [facility], [address] , [address] [place] [address], [address] [place] [address], Certified Tumor Registrar: Sd Sharma MD [facility] Collection Date/Time: [facility] Results Received Date/Time: [facility] Reported Date/Time: Performed By: #### 6 [id number] #### [facility] [address] [place] [address] HEPATITIS C ANTIBODY Non-Reactive Normal NON-AMANDA CTI VE [facility] Specialist Comment on above: Order Comment: [facility] performed at: [employer] [facility], [employer] [facility], [address] , [address] [place], [address], Certified Tumor Registrar: Sd Sharma MD [facility] Collection Date/Time: [facility] Results Received Date/Time: [facility] Reported Date/Time: Performed By: #### 6 [id number] #### [facility] [address] [place] [address] SIGNAL TO CUT-OFF 0.02 Normal <1.00 [facility] Comment on above: Order Comment: [facility] performed at: [employer], [employer] [facility], [address] [facility], [address] [place], [address], Certified Tumor Registrar: Sd Sharma MD [facility] Collection Date/Time: [facility] Results Received Date/Time: [facility] Reported Date/Time: Result Comment: HCV antibody was non-reactive. There is no laboratory evidence of HCV infection. In most cases, no further action is required. However, if recent HCV exposure is suspected, a test for HCV RNA (test code 11940) is suggested. For additional information please refer to http://education.[employer]/faq/IAH01w8 (This link is being provided for informational/ educational purposes only.) Performed By: #### 6 [id number] #### [facility] [address] [place] [address] Complete Blood Count with Au to Diffon 05-01-2021 Basophils (Bld) [#/Vol] 0.05 10*3/uL Normal 0.00-0.20 [facility] Comment on above: Performed By: #### C BCAD, CMP, VITD, TSH reflex FT4, LIPD #### [facility] [address] [place], [place] [id number] Basophils/100 WBC (Bld) 1.1 % Normal [facility] Specialist Comment on above: Performed By: #### C BCAD, CMP, VITD, TSH reflex FT4, LIPD #### [facility] [address] [place], [place] [id number] Eosinophils (Bld) [#/Vol] 0.29 10*3/uL Normal 0.02-0.50 [facility] Registered Route Associate Comment on above: Performed By: #### C BCAD, CMP, VITD, TSH reflex FT4, LIPD #### [facility] [address] [place], [place] [id number] Eosinophils/100 WBC (Bld) 6.3 % Normal [facility] Registered Route Associate Comment on above: Performed By: #### C BCAD, CMP, VITD, TSH reflex FT4, LIPD #### [facility] [address] [place], [place] [id number] Erythrocyte distribution width (RBC) [Ratio] 12.9 % Normal 11.0-15.0 [facility] Registered Route Associate Comment on above: Performed By: #### C BCAD, CMP, VITD, TSH reflex FT4, LIPD #### [facility] [address] [place], [place] [id number] Hematocrit (Bld) [Volume fraction] 40.4 % Normal 38.5-50.0 [facility] Registered Route Associate Comment on above: Performed By: #### C BCAD, CMP, VITD, TSH reflex FT4, LIPD #### [facility] [address] [place], [place] [id number] Hemoglobin (Bld) [Mass/Vol] 13.1 g/dL Normal 13.0-17.1 [facility] Registered Route Associate Comment on above: Performed By: #### C BCAD, CMP, VITD, TSH reflex FT4, LIPD #### [facility] [address] [place], [place] [id number] Lymphocytes (Bld) [#/Vol] 0.9 10*3/uL Normal 0.9-3.9 [facility] Registered Route Associate Comment on above: Performed By: #### C BCAD, CMP, VITD, TSH reflex FT4, LIPD #### [facility] [address] [place], [place] [id number] Lymphocytes/100 WBC (Bld) 18.6 % Normal [facility] Specialist Comment on above: Performed By: #### C BCAD, CMP, VITD, TSH reflex FT4, LIPD #### [facility] [address] [place], [place] [id number] MCH (RBC) [Entitic mass] 31.0 pg Normal 27.0-33.0 [facility] Specialist Comment on above: Performed By: #### C BCAD, CMP, VITD, TSH reflex FT4, LIPD #### [facility] [address] [place], [place] [id number] MCHC (RBC) [Mass/Vol] 32.4 g/dL Normal 32.0-36.[address] [facility] Comment on above: Performed By: #### C BCAD, CMP, VITD, TSH reflex FT4, LIPD #### [facility] [address] [place], [place] [id number] MCV (RBC) [Entitic vol] 96 fL Normal 80-100 [facility] Specialist Comment on above: Performed By: #### C BCAD, CMP, VITD, TSH reflex FT4, LIPD #### [facility] [address] [place], [place] [id number] Monocytes (Bld) [#/Vol] 0.4 10*3/uL Normal 0.2-0.9 [facility] Comment on above: Performed By: #### C BCAD, CMP, VITD, TSH reflex FT4, LIPD #### [facility] [address] [place], [place] [id number] Monocytes/100 WBC (Bld) 8.4 % Normal [facility] Comment on above: Performed By: #### C BCAD, CMP, VITD, TSH reflex FT4, LIPD #### [facility] [address] [place], [place] [id number] Neutrophils (Bld) [#/Vol] 3.0 10*3/uL Normal 1.5-7.8 [facility] Specialist Comment on above: Performed By: #### C BCAD, CMP, VITD, TSH reflex FT4, LIPD #### [facility] [address] [place], [place] [id number] Neutrophils/100 WBC (Bld) 65.4 % Normal [facility] Specialist Comment on above: Performed By: #### C BCAD, CMP, VITD, TSH reflex FT4, LIPD #### [facility] [address] [place], [place] [id number] Platelet mean volume (Bld) [Entitic vol] 10.20 fL Normal 7.50-12.50 [facility] Specialist Comment on above: Performed By: #### C BCAD, CMP, VITD, TSH reflex FT4, LIPD #### [facility] [address] [place], [place] [id number] Platelets (Bld) [#/Vol] 141 10*3/uL Normal 140-400 [facility] Specialist Comment on above: Performed By: #### C BCAD, CMP, VITD, TSH reflex FT4, LIPD #### [facility] [address] [place], [place] [id number] RBC (Bld) [#/Vol] 4.22 10*6/uL Normal 4.20-5.80 [facility] Specialist Comment on above: Performed By: #### C BCAD, CMP, VITD, TSH reflex FT4, LIPD #### [facility] [address] [place], [place] [id number] RDW-SD 45.2 fL Normal 37.0-50.0 [facility] Specialist Comment on above: Performed By: #### C BCAD, CMP, VITD, TSH reflex FT4, LIPD #### [facility] [address] [place], [place] [id number] WBC (Bld) [#/Vol] 4.6 10*3/uL Normal 3.8-11.0 [facility] Registered Route Associate Comment on above: Performed By: #### C BCAD, CMP, VITD, TSH reflex FT4, LIPD #### [facility] [address] [place], [place] [id number] Comprehensive Metabolic Pane ross 05-01-2021 Albumin [Mass/Vol] 4.0 g/dL Normal 3.6-5.1 Arias damon [place] Registered Route Associate Comment on above: Performed By: #### C BCAD, CMP, VITD, TSH reflex FT4, LIPD #### [facility] [address] [place], [place] [id number] Albumin/Globulin [Mass ratio] 1.5 {ratio} Normal 1.0-2.5 [facility] [place] Registered Route Associate Comment on above: Performed By: #### C BCAD, CMP, VITD, TSH reflex FT4, LIPD #### [facility] [address] [place], [place] [id number] ALP [Catalytic activity/Vol] 140 U/L High 40-129 [facility] Specialist Comment on above: Performed By: #### C BCAD, CMP, VITD, TSH reflex FT4, LIPD #### [facility] [address] [place], [place] [id number] ALT [Catalytic activity/Vol] 63 U/L High 9-46 [facility] Specialist Comment on above: Result Comment: 02/22 Female reference range changed. Performed By: #### C BCAD, CMP, VITD, TSH reflex FT4, LIPD #### [facility] [address] [place], [place] [id number] Anion gap [Moles/Vol] 17 mmol/L Normal 12-20 [facility] Specialist Comment on above: Result Comment: Effe ctive 03/30/2019 reference range changed. Performed By: #### C BCAD, CMP, VITD, TSH reflex FT4, LIPD #### [facility] [address] [place], [place] [id number] AST [Catalytic activity/Vol] 62 U/L High 10-40 [facility] Specialist Comment on above: Performed By: #### C BCAD, CMP, VITD, TSH reflex FT4, LIPD #### [facility] [address] [place], [place] [id number] Bilirubin [Mass/Vol] 0.41 mg/dL Normal 0.30-1.20 [facility] Specialist Comment on above: Performed By: #### C BCAD, CMP, VITD, TSH reflex FT4, LIPD #### [facility] [address] [place], [place] [id number] BUN/CREA 13 Ratio Normal 6-22 [facility] Specialist Comment on above: Performed By: #### C BCAD, CMP, VITD, TSH reflex FT4, LIPD #### [facility] [address] [facility] [place] [id number] Calcium [Mass/Vol] 9.5 mg/dL Normal 8.6-10.2 Arias damon [place] Registered Route Associate Comment on above: Performed By: #### C BCAD, CMP, VITD, TSH reflex FT4, LIPD #### [facility] [address] [place], [place] [id number] Chloride [Moles/Vol] 106 mmol/L Normal 98-107 [facility] Comment on above: Performed By: #### C BCAD, CMP, VITD, TSH reflex FT4, LIPD #### [facility] [address] [place], [place] [id number] CO2 [Moles/Vol] 26 mmol/L Normal 20-31 [facility] Comment on above: Performed By: #### C BCAD, CMP, VITD, TSH reflex FT4, LIPD #### [facility] [address] [place], [place] [id number] Creatinine [Mass/Vol] 0.9 mg/dL Normal 0.7-1.[address] [facility] Comment on above: Performed By: #### C BCAD, CMP, VITD, TSH reflex FT4, LIPD #### [facility] [address] [place], [place] [id number] eGFRAA 99 mL/min/1.73m2 Normal >60 [facility] Specialist Comment on above: Performed By: #### C BCAD, CMP, VITD, TSH reflex FT4, LIPD #### [facility] [address] [place], [place] [id number] eGFRNAA 81 mL/min/1.73m2 Normal >60 [facility] Specialist Comment on above: Performed By: #### C BCAD, CMP, VITD, TSH reflex FT4, LIPD #### [facility] [address] [place], [place] [id number] Globulin (S) [Mass/Vol] 2.6 g/dL Normal 1.9-3.7 [facility] Specialist Comment on above: Performed By: #### C BCAD, CMP, VITD, TSH reflex FT4, LIPD #### [facility] [address] [place], [place] [id number] Glucose [Mass/Vol] 89 mg/dL Normal 65-99 Arias damon [place] Registered Route Associate Comment on above: Result Comment: For FASTING Glucose --- ADA reference ranges: Normal 65-99 mg/dl Prediabetes 100-125 Diabetes >/= 126 Performed By: #### C BCAD, CMP, VITD, TSH reflex FT4, LIPD #### [facility] [address] [place], [place] [id number] Potassium [Moles/Vol] 5.0 mmol/L Normal 3.5-5.5 [facility] [place] Registered Route Associate Comment on above: Performed By: #### C BCAD, CMP, VITD, TSH reflex FT4, LIPD #### [facility] [address] [place], [place] [id number] Protein [Mass/Vol] 6.6 g/dL Normal 6.1-8.1 Arias damon [place] Registered Route Associate Comment on above: Performed By: #### C BCAD, CMP, VITD, TSH reflex FT4, LIPD #### [facility] [address] [place], [place] [id number] Sodium [Moles/Vol] 143 mmol/L Normal 135-146 Arias damon [place] Registered Route Associate Comment on above: Performed By: #### C BCAD, CMP, VITD, TSH reflex FT4, LIPD #### [facility] [address] [place], [place] [id number] Urea nitrogen [Mass/Vol] 12 mg/dL Normal 7-25 [facility] Registered Route Associate Comment on above: Performed By: #### C BCAD, CMP, VITD, TSH reflex FT4, LIPD #### [facility] [address] [place], [place] [id number] Lipid Panelon 05-01-2021 Cholesterol [Mass/Vol] 135 mg/dL Normal 125-200 No rthern [place] Registered Route Associate Comment on above: Result Comment: Low risk < 200mg/dL Borderline risk 201-239 mg/dl High risk > or equal to 240 Performed By: #### C BCAD, CMP, VITD, TSH reflex FT4, LIPD #### [facility] [address] [place], [place] [id number] Cholesterol in HDL [Mass/Vol] 44 mg/dL Normal >40 [facility] Registered Route Associate Comment on above: Result Comment: High Cardiovascular Risk HDL <40 mg/dL Low Cardiovascular Risk HDL > or equal to 60 mg/dl Performed By: #### C BCAD, CMP, VITD, TSH reflex FT4, LIPD #### [facility] [address] [place], [place] [id number] Cholesterol in LDL [Mass/Vol] 65 mg/dL Normal [facility] Specialist Comment on above: Result Comment: LDL ATP III CLASSIFICATION LDL less than 100 mg/dl Optimal LDL 100-129 mg/dl Near or above optimal LDL 130-159 Borderline high LDL 160-189 High LDL greater than 189 mg/dl Very High Performed By: #### C BCAD, CMP, VITD, TSH reflex FT4, LIPD #### [facility] [address] [place], [place] [id number] Cholesterol in VLDL [Mass/Vol] 26 mg/dL Normal [facility] Registered Route Associate Comment on above: Performed By: #### C BCAD, CMP, VITD, TSH reflex FT4, LIPD #### [facility] [address] [place], [place] [id number] Cholesterol.total/Chol esterol in HDL [Mass ratio] 3 {ratio} Normal [facility] Specialist Comment on above: Performed By: #### C BCAD, CMP, VITD, TSH reflex FT4, LIPD #### [facility] [address] [place], [place] [id number] Triglyceride [Mass/Vol] 130 mg/dL Normal 30-150 [facility] Registered Route Associate Comment on above: Result Comment: TRIG ATPIII CLASSIFICATIONS TRIG less than 150 mg/dl Normal TRIG 150-199 mg/dl Borderline High TRIG 200-500 mg/dl High TRIG greather than 500 mg/dl Very High Performed By: #### C BCAD, CMP, VITD, TSH reflex FT4, LIPD #### [facility] [address] [place], [place] [id number] PSA SCREEN (MEDICARE)on TPSA 0.983 ng/mL Normal <4.000 [facility] Registered Route Associate Comment on above: Result Comment: PSA Test Method: ECLIA/Mick e 601 Performed By: #### P MC #### [facility] [address] [place], [place] [id number] TSH w/ Reflex to Free T4on 0 2-07-2022 TSH 1.150 uIU/mL Normal 0.400-4.50 0 [facility] Registered Route Associate Comment on above: Performed By: #### C BCAD, CMP, VITD, TSH reflex FT4, LIPD #### [facility] [address] [place], [place] [id number] Vitamin D 25-OHon 05-01-2021 VIT D 25 OH 32 ng/ml Normal >29 [facility] Registered Route Associate Comment on above: Result Comment: Maria E min D Status Deficiency <20 ng/mL Insufficiency 20-29 ng/mL Optimal 30-100 ng/mL Possible Toxicity >=150 ng/mL Performed By: #### C BCAD, CMP, VITD, TSH reflex FT4, LIPD #### [facility] [address] [place], [place] [id number] Covid-19 PCR (CVDTB)on SARS-CoV-2 (COVID-19) RNA GÓMEZ+probe Ql (Unsp spec) Not detected Normal NOT DETECTED [facility] Comment on above: Result Comment: This test is not yet approved or cleared by the [place] FDA. When there are no FDA-approved or cleared tests available, and other criteria are met, FDA can make tests available under an emergency access mechanism called an Emergency Use Authorization (EUA). The EUA for this test is supported by the [place] of Health and Human Service's (HHS's) declaration [...] Performed By: #### F ETIBC, FERR #### [facility] [address] [place], [place] [address] Dr. Natalya Arthur CBC AUTO DIFFon 02-03-2021 BASO # 0.0 103/ul Normal 0.0-0.1 [facility] Comment on above: Performed By: #### C BC #### [facility] [address] [place] [address] Dr. Natalya Arthur Basophils/100 WBC (Bld) 0.3 % Normal 0.2-2.0 [facility] Comment on above: Performed By: #### C BC #### [facility] [address] [place] [address] Dr. Natalya Arthur EO # 0.0 103/ul Normal 0.0-0.7 [facility] Comment on above: Performed By: #### C BC #### [facility] [address] [place] [address] Dr. Natalya Arthur Eosinophils/100 WBC (Bld) 0.1 % Critically low 0.9-7.0 [facility] Comment on above: Performed By: #### C BC #### [facility] [address] [place] [address] Dr. Natalya Arthur Erythrocyte distribution width (RBC) [Ratio] 13.2 % Normal 11.0-15.0 [facility] Comment on above: Performed By: #### C BC #### [facility] [address] [place] [address] Dr. Natalya Arthur Hematocrit (Bld) [Volume fraction] 46.5 % Normal 42.0-54.0 [facility] Comment on above: Performed By: #### C BC #### [facility] [address] [place] [address] Dr. Natalya Arthur Hemoglobin (Bld) [Mass/Vol] 15.2 g/dL Normal 14.0-18.0 [facility] Comment on above: Performed By: #### C BC #### [facility] [address] [place] [address] Dr. Natalya Arthur IG # 0.04 10e3/ul Critically high 0.00-0.03 [facility] Comment on above: Performed By: #### C BC #### [facility] [address] [place] [address] Dr. Natalya Arthur IG % 0.3 % Normal 0.0-0.5 [facility] Comment on above: Performed By: #### C BC #### [facility] [address] [place] [address] Dr. Natalya Arthur LYMPH # 1.2 103/ul Normal 1.2-3.8 [facility] Comment on above: Performed By: #### C BC #### [facility] [address] [place] [address] Dr. Natalya Arthur Lymphocytes/100 WBC (Bld) 10.3 % Critically low 20.5-60.0 [facility] Comment on above: Performed By: #### C BC #### [facility] [address] [place] [address] Dr. Natalya Arthur MANUAL DIFF REQ NO Normal [facility] Comment on above: Performed By: #### C BC #### [facility] [address] [place] [address] Dr. Natalya Arthur MCH (RBC) [Entitic mass] 31.0 pg Normal 25.9-34.0 [facility] Comment on above: Performed By: #### C BC #### [facility] [address] [place] [address] Dr. Natalya Arthur MCHC (RBC) [Mass/Vol] 32.7 g/dL Normal 29.9-35.2 [facility] Comment on above: Performed By: #### C BC #### [facility] [address] [place] [address] Dr. Natalya Arthur MCV (RBC) [Entitic vol] 94.9 fL Critically high 80.0-94.0 [facility] Comment on above: Performed By: #### C BC #### [facility] [address] [place] [address] Dr. Natalya Arthur MONO # 1.1 103/ul Critically high 0.3-0.8 [facility] Comment on above: Performed By: #### C BC #### [facility] [address] [place] [address] Dr. Natalya Arthur Monocytes/100 WBC (Bld) 9.2 % Normal 1.7-12.0 [facility] Comment on above: Performed By: #### C BC #### [facility] [address] [place] [address] [address] Natalya Arthur NEUT # 9.6 103/ul Critically high 1.4-6.5 [facility] Comment on above: Performed By: #### C BC #### [facility] [address] [place] [address] [address] Natalya Arthur Neutrophils/100 WBC (Bld) 79.8 % Critically high 43.0-75.0 [facility] Comment on above: Performed By: #### C BC #### [facility] [address] [place] [address] Dr. Natalya Arthur Platelet mean volume (Bld) [Entitic vol] 10.3 fL Normal 9.5-13.5 [facility] Comment on above: Performed By: #### C BC #### [facility] [address] [place] [address] Dr. Natalya Arthur PLT 126 103/ul Critically low 150-450 [facility] Comment on above: Performed By: #### C BC #### [facility] [address] [place] [address] Dr. Natalya Arthur RBC 4.90 106/ul Normal 4.70-6.10 [facility] Comment on above: Performed By: #### C BC #### [facility] [address] [place] [address] Dr. Natalya Arthur WBC 12.1 103/ul Critically high 4.0-11.0 [facility] Comment on above: Performed By: #### C BC #### [facility] [address] [place] [address] Dr. Natalya Arthur ER URINE PROFILEon 1 Bilirubin Ql (U) Negative Normal NEGATIVE [facility] Comment on above: Performed By: #### MICK BESS #### [facility] [address] [place] [address] Dr. Natalya Arthur Clarity (U) CLEAR Normal CLEAR [facility] Comment on above: Performed By: #### MICK BESS #### [facility] [address] [place] [address] Dr. Natalya Arthur Color (U) YELLOW Normal YELLOW [facility] Comment on above: Performed By: #### Arthur MCLEAN UMICRO #### [facility] [address] [place] [address] Dr. Natalya Arthur ERUAHD A micrscopic examina tion will be performed if indicated. Normal [facility] Comment on above: Performed By: #### Arthur MCLEAN UMICRO #### [facility] [address] [place] [address] Dr. Natalya Arthur Glucose Ql (U) Negative Normal NEGATIVE [facility] Comment on above: Performed By: #### Arthur MCLEAN UMICRO #### [facility] [address] [place] [address] Dr. Natalya Arthur Hemoglobin Ql (U) LARGE Abnormal NEGATIVE [facility] Comment on above: Performed By: #### Arthur MCLEAN UMICRO #### [facility] [address] [place] [address] Dr. Natalya Arthur Ketones Ql (U) Negative Normal NEGATIVE [facility] Comment on above: Performed By: #### Arthur MCLEAN UMICRO #### [facility] [address] [place] [address] Dr. Natalya Arthur LEUKOCYTES Negative Normal NEGATIVE [facility] Comment on above: Performed By: #### Arthur MCLEAN UMICRO #### [facility] [address] [place] [address] Dr. Natalya Arthur Nitrite Ql (U) Negative Normal NEGATIVE [facility] Comment on above: Performed By: #### Arthur MCLEAN UMICRO #### [facility] [address] [place] [address] Dr. Natalya Arthur pH (U) 6.0 [pH] Normal 5-9 [facility] Comment on above: Performed By: #### Arthur MCLEAN UMICRO #### [facility] [address] [place] [address] Dr. Natalya Arthur Protein (U) [Mass/Vol] 100 mg/dL Abnormal NEGAT ANTONIO/ TRACE [facility] Comment on above: Performed By: #### MICK BESS #### [facility] [address] [place] [address] Dr. Natalya Arthur SPEC GRAVITY >=1.030 Abnormal 1.005-<=1. 025 [facility] Comment on above: Performed By: #### MICK BESS #### [facility] [address] [place] [address] Dr. Natalya Arthur UR MICRO IND INDICATED Normal [facility] Comment on above: Performed By: #### MICK BESS #### [facility] [address] [place] [address] Dr. Natalya Arthur Urobilinogen Qn (U) 0.2 {Vonnie'U}/dL Normal 0.2 - 1. 0 [facility] Comment on above: Performed By: #### MICK BESS #### [facility] [address] [place] [address] Dr. Natalya Arthur LACTATE/LACTIC ACIDon 2020 Lactate [Moles/Vol] 1.7 mmol/L Normal 0.7-2.0 [facility] Comment on above: Performed By: #### C ARIELLATB #### [facility] [address] [place] [address] Dr. Natalya Arthur LIPASEon 02-03-2021 Lipase [Catalytic activity/Vol] 143.0 U/L Normal 23.0-300.0 [facility] Comment on above: Performed By: #### C ARIELLATBH #### [facility] [address] [place] [address] Dr. Natalya Arthur PROF 14(COMP METB)on 021 Albumin [Mass/Vol] 3.6 g/dL Normal 3.5-5.0 [facility] Comment on above: Performed By: #### C ARIELLATBH #### [facility] [address] [place] [address] Dr. Natalya Arthur Albumin/Globulin [Mass ratio] 0.8 {ratio} Normal [facility] Comment on above: Performed By: #### C VDTBH #### [facility] [address] [address] [address] Natalya Arthur ALP [Catalytic activity/Vol] 108 U/L Normal 38-126 [facility] Comment on above: Performed By: #### C VDTBH #### [facility] [address] [address] [address] Natalya Arthur ALT [Catalytic activity/Vol] 65 U/L Normal 21-72 [facility] Comment on above: Performed By: #### C VDTBH #### [facility] [address] [address] [address] Natalya Arthur Anion gap [Moles/Vol] 13.9 mmol/L Normal [facility] Comment on above: Performed By: #### C VDTBH #### [facility] [address] [address] [address] Natalya Arthur AST [Catalytic activity/Vol] 42 U/L Normal 17-59 [facility] Comment on above: Performed By: #### C VDTBH #### [facility] [address] [address] [address] Natalya Arthur Bilirubin [Mass/Vol] 1.0 mg/dL Normal 0.2-1.3 [facility] Comment on above: Performed By: #### C VDTBH #### [facility] [address] [address] [address] Natalya Arthur Calcium [Mass/Vol] 9.7 mg/dL Normal 8.4-10.2 [facility] Comment on above: Performed By: #### C VDTBH #### [facility] [address] [address] [address] Natalya Arthur Chloride [Moles/Vol] 100 mmol/L Normal 98-107 [facility] Comment on above: Performed By: #### C VDTBH #### [facility] [address] [address] [address] Natalya Arthur CO2 [Moles/Vol] 28.2 mmol/L Normal 22.0-30.0 [facility] Comment on above: Performed By: #### C VDTBH #### [facility] [address] [address] [address] Natalya Arthur Creatinine [Mass/Vol] 1.18 mg/dL Normal 0.66-1.25 [facility] Comment on above: Performed By: #### C VDTBH #### [facility] [address] [address] [address] Natalya Arthur EGFR-AF GHANAIAN >60 Normal >=60 [facility] Comment on above: Performed By: #### C VDTBH #### [facility] [address] [address] [address] Natalya Arthur EGFR-NON AF GHANAIAN =60 Normal >=60 [facility] Comment on above: Performed By: #### C VDTBH #### [facility] [address] [place] [address] Dr. Natalya Arthur Globulin (S) [Mass/Vol] 4.5 g/dL Normal [facility] Comment on above: Performed By: #### C VDTBH #### [facility] [address] [address] [address] Natalya Arthur Glucose [Mass/Vol] 121 mg/dL Critically high 74-106 [facility] Comment on above: Performed By: #### C VDTBH #### [facility] [address] [place] [address] Dr. Natalya Arthur Potassium [Moles/Vol] 4.1 mmol/L Normal 3.4-5.0 [facility] Comment on above: Performed By: #### C VDTBH #### [facility] [address] [address] [address] Natalya Arthur Protein [Mass/Vol] 8.1 g/dL Normal 6.1-8.2 [facility] Comment on above: Performed By: #### C VDTBH #### [facility] [address] [place] [address] Dr. Natalya Arthur Sodium [Moles/Vol] 138 mmol/L Normal 137-145 [facility] Comment on above: Performed By: #### C VDTBH #### [facility] [address] [address] [address] Natalya Arthur Urea nitrogen [Mass/Vol] 17.0 mg/dL Normal 9.0-20.0 [facility] Comment on above: Performed By: #### C VDTBH #### [facility] [address] [address] [address] Natalya Arthur Urea nitrogen/Creatinine [Mass ratio] 14.4 mg/mg Normal [facility] Comment on above: Performed By: #### C VDTBH #### [facility] [address] [address] [address] Natalya Arthur TROPONIN, HIGH SENSITIVITYon 02-03-2021 HSTROP 49.0 pg/mL Critically high 4.0-42.2 [facility] Comment on above: Result Comment: CUT- OFF POINTS HAVE BEEN ESTABLISHED BASED ON THE FOURTH UNIVERSAL DEFINITIONS OF MYOCARDIAL INFARCTION. THE UPPER REFERENCE LIMIT (URL) OF TROPONIN, DEFINED THE 99TH PERCENTILE OF cTnI DISTRIBUTION IN A REFERENCE POPULATION, HAS BEEN CONFIRMED THE DECISION THRESHOLD FOR [place] DIAGNOSIS. Performed By: #### C VDTB #### [facility] [address] [place] [address] Dr. Natalya Arthur URINE MICROSCOPIC ONLYon AMORPHOUS CRYSTALS FEW Normal [facility] Comment on above: Performed By: #### Arthur MCLEAN UMICRO #### [facility] [address] [place] [address] Dr. Natalya Arthur BACTERIA TRACE Abnormal NONE SEEN [facility] Comment on above: Performed By: #### Arthur MCLEAN UMICRO #### [facility] [address] [place] [address] Dr. Natalya Arthur Bacteria identified Cx Nom (U) NOT INDICATED Normal [facility] Comment on above: Performed By: #### Arthur MCLEAN UMICRO #### [facility] [address] [address] [address] Natalya Arthur CAST NONE SEEN Normal NONE SEEN [facility] Comment on above: Performed By: #### Arthur MCLEAN UMICRO #### [facility] [address] [address] [address] Natalya Arthur Crystals LM Nom (Urine sed) SEEN Abnormal NONE SEEN [facility] Comment on above: Performed By: #### Arthur MCLEAN UMICRO #### [facility] [address] [place] [address] Dr. Natalya Arthur Epithelial cells LM Ql (Urine sed) FEW Abnormal NONE SEEN /RARE [facility] Comment on above: Performed By: #### Arthur MCLEAN UMICRO #### [facility] [address] [place] [address] Dr. Natalya Arthur MUCOUS LARGE Abnormal NONE SEEN [facility] Comment on above: Performed By: #### Arthur MCLEAN UMICRO #### [facility] [address] [place] [address] Dr. Natalya Arthur RBC 10-20 Abnormal 0-2 [facility] Comment on above: Performed By: #### Arthur MCLEAN UMICRO #### [facility] [address] [place] [address] Dr. Natalya Arthur WBC 0-2 Abnormal NONE SEEN [facility] Comment on above: Performed By: #### Arthur MCLEAN UMICRO #### [facility] [address] [place] [address] Dr. Natalya Arthur US SINGLE QUAD RT [...] by: STEPHEN ARBOLEDA Date: 2021-02-03 19:08 Normal [facility] XR CHEST 1 Von 02-03-2021 XR [...] by: STEPHEN ARBOLEDA Date: 2021-02-03 19:22 Normal [facility] Cardiovascular Lab Reporton 10-31-2018 Cardiovascular Lab Report [facility] Patient Name: [facility] Pankaj MR #: [id number] Department of Physician: Artis Horner MEric Division of Service Date: 10/30/2018 Cardiology Birthdate: 1945 Adult Cardiovascular Room #: [address] [place] [address] Cardiovascular Laboratory Report CLINICAL PRESENTATION: Pankaj Payne is a 73-year-old male with past medical history significant for CAD, status post prior PCI of the left circumflex coronary artery in 02/2018; hypertension; hyperlipidemia; hypothyroidism. The patient was [facility] [place] [facility]. He reports worsening fatigue that [...] noted. 4. Outpatient followup with Dr. Tenorio, [place] [facility]. PROCEDURES: Coronary angiogram, left heart catheterization, [...] infiltrated over the right radial artery. A 6-Yemeni Terumo Glidesheath slender was placed in the right radial artery. The radial anti-vasospasm cocktail of verapamil 2.5 mg and nitroglycerin 200 mcg was administered through the sheath. All catheter exchanges were made over the [employer] DBA eGifter Torque guidewire. Initially, a 5-Yemeni Mozelle catheter was used to engage the coronary arteries. The Mozelle catheter engaged the right coronary artery, but did not engage the left main coronary artery well. I then exchanged over wire to a 6-Yemeni JL3.5 catheter which engaged the left main coronary artery. Coronary angiogram was performed in multiple orthogonal views using hand injection of contrast. At this point, it was apparent that the right PDA had intermediate stenosis, I elected to proceed with IFR evaluation. The Warren Verrata wire was zeroed outside of the body and then normalized at the catheter guide tip. Heparin anticoagulation was used for this procedure and the ACT was maintained greater than 200 seconds. The Warren Verrata wire was then manipulated to the [...] Schafer M.D. Date Trans: 10/31/2018 05:07 Rishabh/katelin [id number] cc: Frantz Conley M.D. [address] [address] Frantz Tenorio M.D. [address] [id number] [place] [facility] Operative Reporton 12--201 8 Operative Report Date [...] day for postoperative care.Hardeep Fraga D.O.glsDictated: 02/25/2018 #[id number]: 02/25/2018 #[id number]: Horace Cabrera [facility] Comment on above: Result Comment: Elec tronically Signed By: Hardeep Fraga DO\.br\Date and Time Signed: 03/03/18 12:57 EST Cardiovascular Lab Reporton 03-01-2018 Cardiovascular Lab Report [facility] Patient Name: [facility] Pankaj MR #: [id number] Department of Physician: Gage Barahona Medicine MEric Division of Service Date: 02/28/2018 Cardiology Birthdate: 1945 Adult Cardiovascular Room #: 3AB 439097 [facility] [address] [facility]. [place] [address] Cardiovascular Laboratory Report FINAL IMPRESSION: 1. Successful [...] fashion. Using a modified Seldinger technique, a 5-Yemeni micropuncture was placed in right internal jugular vein. This was upsized to a regular 6-Yemeni sheath. Then, a 6-Yemeni Trinh was used for right heart catheterization. The right heart catheterization was performed. Access of the right radial artery under ultrasound guidance and in the right ulnar artery under ultrasound guidance a 6-Yemeni sheath was placed and then used a 6-Yemeni JL3.5 and JR5 catheter for coronary angiography. After baseline angiography was performed, the case was discussed by his referring workday consultant, Dr. Tenorio, as well as with the patient's family. Also given multiple lesions in right , circumflex coronary artery and a distal LAD lesion, we also discussed CABG as an option. 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 We decided to treat circumflex. 6-Yemeni XB 3.0 guide was used to engage the left main coronary ostium. A 0.014 Whalan wire was passed across the proximal circumflex into the 1st obtuse marginal branch. Predilatation was performed using a 2.5 x 15 balloon. Then, we deployed a 2.5 x 16 Synergy stent. This was post-dilated with a 2.75 x 15 noncompliant at 24 atmospheres. Final angiography showed good stent result in the proximal circumflex into the 1st obtuse marginal branch. The sycuan circumflex stayed open. There were no complications. [...] Barahona M.D. Date Trans: 03/01/2018 03:16 A/katelin [id number] cc: JYOTI Villalobos [address] [place] [address] Frantz Conley M.D. [address] [address] Frantz Tenorio M.D. [address] [address] Normal [facility] History and Physicalon 02-28 History and Physical MR#: [id number] [facility] Pt. Name: Pankaj Payne Admitted: 02/28/2018 [...] Lopez M.D. Date Trans: 02/28/2018 04:44 P/katelin [id number] Normal [facility] Coding Summary.on 02-26-2018 Coding Summary. CODING DATE: 018 [facility] STATUS: Home (Routine DC) PAYOR: Medicare APC DESCRIPTION 5491 Level 1 Intraocular Procedures ADMIT DX: REASON FOR VISIT DX: H25.11 Age-related nuclear cataract, right eye FINAL DX: PRINCIPAL: H25.11 Age-related nuclear cataract, right eye SECONDARY: H25.041 Posterior subcapsular polar age-related cataract, right eye E03.9 Hypothyroidism, unspecified PYMT PROC APC STAT DESCRIPTION DOCTOR NAME DATE 13164 5491 J1 Extracapsular cataract Hardeep Fraga DO [...] Caldwell Date Saved: 02/26/2018 04:03 pm Normal [facility] Main OR Intraoperative Recor don 02-26-2018 Main OR Intraoperative Record IntraOp Document Type FT Summary Primary Physician: Hardeep Fraga DO Finalized Date/Time: 02/26/18 14:08:09 Pt. Name: PANKAJ PAYNE/Sex: 1945 Male Med Rec #: [id number] Physician: Hardeep Fraga DO Financial #: [id number] Pt. Type: A Room/Bed: [place] [address] Admit/Disch: 02/25/18 08:23:00 - 02/25/18 12:00:00 Institution: [...] RN, Sussy Role Performed Surgeon - Primary Grit Removal Operator - Primary Grit Removal Operator - Primary Time In 02/25/18 11:00:00 [...] tissue Entry 1 Skin Integrity Warm, Dry, Lupton, Unable Outcomes Met? Yes to Visualize Last [...] Instruments Status Correct Correct Time By Ruffing VP PACKAGING, Zoila E Ruffing VP PACKAGING, Zoila E Outcomes Met? Yes Yes Last [...] RN Patient Status Stable Skin. Condition Warm, Lupton, Dry Airway Maintenance Oxygen in Use? No [...] safely administered during the perioperative period For [facility] please see scanned medication reconcilliation form for medications used at the field during the procedure. Implant Log FT Pre-Care Text: Records devices implanted during the operative or invasive procedure Entry 1 Implant/Explant Implant Implant Identification Description ROSENDA [id number] 12.50MM Serial Number [id number] 13.50 [[id number]] Lot Number [id number] Online [employer] Analyst [employer] Catalog ?# [id number][F] Expiration Date 05/23/19 Usage Data Implant Site right eye Quantity 1 Outcomes Met? Yes Last Modified By: Arnold Moreno RN 02/25/18 11:08:01 Post-Care Text: The patient is free from signs and symptoms of injury caused by extraneous objects Case Comments Finalized By: Elayne Agosto CST Document Signatures Signed By: Arnold Moreno RN 02/25/18 11:18 Elayne Agosto CST 02/26/18 14:08 Normal [facility] History and Physicalon 12-04 -2018 History and [...] in the near future.Hardeep Fraga D.O.aekDictated: 02/24/2018 #[id number] 02/25/2018 #[id number]: Hardeep Fraga D.O. Normal [facility] Comment on above: Result Comment: Elec tronically Signed By: Hardeep Fraga DO\.br\Date and Time Signed: 02/25/18 10:24 EST Inpatient Patient Summaryon 02-25-2018 [facility] Instructions[facility]ERSON INFORMATION Name: PANKAJ PAYNE PHYSICIANS Admitting Physician: Hardeep Fraga DOAttending Physician: Hardeep Fraga DO PCP: FRANTZ CONLEY MD BDischarge Diagnosis: Cataract Comment: PATIENT EDUCATION INFORMATIONInstructions:M edication Leaflets:Follow up:With: Address: When: Hardeep Fraga [facility] Med [address] [address] [place] [address] Business (1) Within 1 to 2 days MEDICATION LISTComment: Normal [facility] Main OR PACU II Recordon Main OR PACU II Record PACU Phase II Doc ument Type FT Summary Primary Physician: Hardeep Fraga DO Finalized Date/Time: 02/25/18 12:33:41 Pt. Name: PANKAJ PAYNE/Sex: 1945 Male Med Rec #: [id number] Physician: Hardeep Fraga DO Financial #: [id number] Pt. Type: A Room/Bed: [place] [address] Admit/Disch: 02/25/18 08:23:55 - Institution: Case Times [...] By: Lissa Pope RN 02/25/18 12:33 Normal [facility] Main OR Preoperative Recordo n 02-25-2018 Main OR Preoperative Record PreOp Document Type FT Summary Primary Physician: Hardeep Fraga DO Finalized Date/Time: 02/25/18 11:05:22 Pt. Name: PAYNEPANKAJ/Sex: 1945 Male Med Rec #: [id number] Physician: Hardeep Fraga DO Financial #: [id number] Pt. Type: A Room/Bed: [place] [address] Admit/Disch: 02/25/18 08:23:55 - Institution: Case Times [...] By: Arnold Moreno RN 02/25/18 11:05 Normal [facility] Main OR Preoperative Record Holding Area Document Type FT Summary Primary Physician: Hardeep Fraga DO Finalized Date/Time: 02/25/18 08:46:23 Pt. Name: PANKAJ PAYNE /Sex: 1945 Male Med Rec #: [id number] Physician: Hardeep Fraga DO Financial #: [id number] Pt. Type: A Room/Bed: [place] [address] Admit/Disch: 02/25/18 08:23:55 - Institution: Case Times [...] By: Lissa Pope RN 02/25/18 08:46 Normal [facility] Patient Education - Texton 1 04-28-2017 Patient Education - Text Normal [facility] Progress Note-Physicianon Protein mass conc Patient: PAKNAJ PAYNE Age: 72 years Sex: Male : 1945 Associated Diagnoses: None Author: Hardeep Fraga DO Postoperative Information Date/ Time: 02/25/18 11:17:00 Preoperative Diagnosis: Senile Cataract - OD . Postoperative Diagnosis: same . Procedure: Cataract Extraction with IOL placement - OD. Anesthesia Method: Local. Performed by: Hardeep Fraga DO. Specimens Removed: none . Estimated Blood Loss: 0 ml. Complications: None. Normal [facility] Comment on above: Result Comment: Elec [...] day for postoperative care.Hardeep Fraga D.O.lkrDictated: 02/11/2018 #[id number]: 02/12/2018 #[id number]: Hardeep Fraga D.O. [facility] Comment on above: Result Comment: Elec tronically Signed By: Hardeep Fraga DO\.br\Date and Time Signed: 02/17/18 08:38 EST Coding Summary.on 02-12-2018 Coding Summary. CODING DATE: [address] [facility] STATUS: Home (Routine DC) PAYOR: Medicare APC DESCRIPTION 5491 Level 1 Intraocular Procedures ADMIT DX: REASON FOR VISIT DX: H25.13 Age-related nuclear cataract, bilateral FINAL DX: PRINCIPAL: H25.13 Age-related nuclear cataract, bilateral SECONDARY: H25.043 Posterior subcapsular polar age-related cataract, bilateral E03.9 Hypothyroidism, unspecified PYMT PROC APC STAT DESCRIPTION DOCTOR NAME DATE 24431 5491 J1 Extracapsular cataract Hardeep Fraga DO [...] Abbasi Revised Date Saved: 02/12/2018 11:05 am [facility] Main OR Preoperative Recordo n 1121-2018 Main OR Preoperative Record Holding Area Document Type FT Summary Primary Physician: Hardeep Fraga DO Finalized Date/Time: 02/12/18 07:26:59 Pt. Name: PANKAJ PAYNE /Sex: 1945 Male Med Rec #: [id number] Physician: Hardeep Fraga DO Financial #: [id number] Pt. Type: A Room/Bed: [place] [address] Admit/Disch: 02/11/18 08:31:00 - 02/11/18 12:00:00 Institution: [...] HEMANT Macdonald RN, Andrea 02/12/18 07:26 Normal [facility] History and Physicalon 02-11 History and [...] in the near future.Hardeep Fraga D.O.aekDictated: 02/10/2018 #[id number] 02/11/2018 #[id number]: Hardeep Frgaa D.O. [facility] Comment on above: Result Comment: Elec tronically Signed By: Hardeep Fraga DO\.br\Date and Time Signed: 02/11/18 08:10 EST Inpatient Patient Summaryon 02-11-[address] [facility] [address] [facility] Dis[facility] InstructionsPERSON INFORMATION Name: PAYNE, PANKAJ [place] [facility] Admitting Physician: Hardeep Fraga DOAttending Physician: Hardeep Fraga DO PCP: FRANTZ CONLEY MD BDischarge Diagnosis: Cataract Comment: PATIENT EDUCATION INFORMATIONInstructions:Z AHLER- After Surgery Eye (Custom)Medication Leaflets:Follow up:With: Address: When: Hardeep Fraga [facility] Med [address] [facility], [facility] [address] [place] [address] Business (1) Within 1 to 2 days MEDICATION LISTComment: [facility] Main OR Intraoperative Recor don 02-11-2018 Main OR Intraoperative Record IntraOp Document Type FT Summary Primary Physician: Hardeep Fraga DO Finalized Date/Time: 02/11/18 13:09:49 Pt. Name: PANKAJ PAYNE D.O.B./Sex: 1945 Male Med Rec #: [id number] Physician: Hardeep Fraga DO Financial #: [id number] Pt. Type: A [facility] Admit/Disch: 02/11/18 08:31:00 - 02/11/18 12:00:00 Institution: Case Times FT Entry 1 Patient Times In Room 02/11/18 11:04:00 Out Room 02/11/18 11:24:00 Procedure Times Start 02/11/18 11:11:00 Stop 02/11/18 11:22:00 Anesthesia Times Last Modified By: Elayne Agosto CST 02/11/18 11:24:30 General Comments: 02/11/18 Chart opened to review and send charges Estela Agosto VP PACKAGING Case Attendance FT Entry 1 Entry 2 Entry 3 Case Attendee Hardeep Fraga DO RN, Rosanna Moreno RN, Arnold Morton Role Performed Surgeon - Primary Grit Removal Operator - Primary Grit Removal Operator - Primary Time In 02/11/18 11:04:00 02/11/18 11:04:00 02/11/18 11:04:00 Time Out 02/11/18 11:24:00 02/11/18 11:24:00 02/11/18 11:24:00 Procedure CATARACT EXTRACTION W/ CATARACT EXTRACTION W/ CATARACT EXTRACTION W/ INTRAOCULAR LENS(Left) INTRAOCULAR LENS(Left) INTRAOCULAR LENS(Left) Comments Last Modified By: Siddharth RN, Rosanna Messina RN, Rosanna Vanegas RN 02/11/18 11:24:31 02/11/18 11:24:31 02/11/18 11:24:31 Entry 4 Entry 5 Case Attendee Marisela Huber CST VP PACKAGING/Nusrat ZAMORA Role Performed Scrub - Primary Scrub [...] RN, Rosanna M, Tiffanie RN, Krys Mar VP PACKAGING/SA, Mayo Silverio VP PACKAGING, Marisela Rodriguez Time Out Complete 02/11/18 11:08:00 [...] Identification Description ROSENDA [id number] 12.50MM Lot Number [id number] 17.50 [[id number]][F] 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 Yes Last Modified By: Rosanna Messina RN 02/11/18 11:19:54 Post-Care Text: The patient is free from signs and symptoms of injury caused by extraneous objects Case Comments Finalized By: Elayne Agosto CST Document Signatures Signed By: Rosanna Messina RN 02/11/18 11:24 Elayne Agosto CST 02/11/18 13:09 Normal [facility] Main OR PACU II Recordon Main OR PACU II Record PACU Phase II Doc ument Type FT Summary Primary Physician: Hardeep Fraga DO Finalized Date/Time: 02/11/18 12:09:46 Pt. Name: PANKAJ PAYNE/Sex: 1945 Male Med Rec #: [id number] Physician: Hardeep Fraga DO Financial #: [id number] Pt. Type: A Room/Bed: [place] [address] Admit/Disch: 02/11/18 08:31:00 - Institution: Case Times [...] By: Lisa Rubi RN 02/11/18 12:09 Normal [facility] Patient Education - Texton 1 04-13-2017 Patient Education - Text [facility] Progress Note-Physicianon Protein mass conc Patient: [...] Blood Loss: 0 ml. Complications: None. Normal [facility] Comment on above: Result Comment: Elec tronically Signed By: Hardeep Fraga DO\.br\Date and Time Signed: 02/11/18 11:23 EST Vital Signs Date Time Vital Sign Value Performing Clinician Facility 11-11-2024 13:33-0400 Body height 157.48 cm Frantz Conley II Work Phone: [facility] 11-11-2024 13:33-0400 Body mass index (BMI) [Ratio] 32.3 kg/m2 Frantz Conley II Work Phone: [facility] 11-11-2024 13:33-0400 Body weight 80.28 kg Frantz Conley II Work Phone: [facility] 11-11-2024 13:33-0400 Diastolic blood pressure 79 mm[Hg] Frantz Conley II Work Phone: [facility] 11-11-2024 13:33-0400 Heart rate 61 /min Frantz Conley II Work Phone: [facility] 11-11-2024 13:33-0400 Systolic blood pressure 120 mm[Hg] Frantz Ocnley II Work Phone: [facility] 10-20-2024 14:31-0400 Body height 166.4 cm Rosanna Hemmer PA Work Phone: [facility] 10-20-2024 14:31-0400 Body mass index (BMI) [Ratio] 29.24 kg/m2 Rosanna Hemmer PA Work Phone: [facility] 10-20-2024 14:31-0400 Body weight 80.92 kg Rosanna Hemmer PA Work Phone: [facility] 10-20-2024 14:31-0400 Diastolic blood pressure 84 mm[Hg] Rosanna Hemmer PA Work Phone: [facility] 10-20-2024 14:31-0400 Heart rate 69 /min Rosanna Hemmer PA Work Phone: [facility] 10-20-2024 14:31-0400 Respiratory rate 16 /min Rosanna Hemmer PA Work Phone: [facility] 10-20-2024 14:31-0400 SaO2% (BldA) [Mass fraction] 96 % Rosanna Hemmer PA Work Phone: [facility] 10-20-2024 14:31-0400 Systolic blood pressure 132 mm[Hg] Rosanna Hemmer PA Work Phone: [facility] 10-05-2024 11:04-0400 Body height 166.4 cm Frantz Conley MD Work Phone: [facility] 10-05-2024 11:04-0400 Body mass index (BMI) [Ratio] 29.66 kg/m2 Frantz Conley MD Work Phone: [facility] 10-05-2024 11:04-0400 Body weight 82.1 kg Frantz Conley MD Work Phone: [facility] 10-05-2024 11:04-0400 Diastolic blood pressure 62 mm[Hg] Frantz Conley MD Work Phone: [facility] 10-05-2024 11:04-0400 Heart rate 48 /min Frantz Conley MD Work Phone: [facility] 10-05-2024 11:04-0400 SaO2% (BldA) [Mass fraction] 97 % Frantz Conley MD Work Phone: [facility] 10-05-2024 11:04-0400 Systolic blood pressure 110 mm[Hg] Frantz Conley MD Work Phone: [facility] 09-08-2024 14:56-0400 Body height 165.1 cm Crescencio Marin DO Work Phone: [facility] 09-08-2024 14:56-0400 Body mass index (BMI) [Ratio] 30.29 kg/m2 rCescencio Marin DO Work Phone: [facility] 09-08-2024 14:56-0400 Body weight 82.56 kg Crescencio Marin DO Work Phone: [facility] 09-08-2024 14:56-0400 Diastolic blood pressure 68 mm[Hg] Crescencio Marin DO Work Phone: [facility] 09-08-2024 14:56-0400 Heart rate 58 /min Crescencio Marin DO Work Phone: [facility] 09-08-2024 14:56-0400 Systolic blood pressure 122 mm[Hg] Crescencio Marin DO Work Phone: [facility] 04-30-2024 13:05-0500 Body height 157.48 cm Frantz Conley II Work Phone: [facility] 04-30-2024 13:05-0500 Body mass index (BMI) [Ratio] 32 kg/m2 Frantz Conley II Work Phone: [facility] 04-30-2024 13:05-0500 Body weight 79.37 kg Frantz Conley II Work Phone: [facility] 03-12-2024 10:59-0500 Body height 166.4 cm Frantz Conley MD Work Phone: [facility] 03-12-2024 10:59-0500 Body mass index (BMI) [Ratio] 29.17 kg/m2 Frantz Conley MD Work Phone: [facility] 03-12-2024 10:59-0500 Body weight 80.74 kg Frantz Conley MD Work Phone: [facility] 03-12-2024 10:59-0500 Diastolic blood pressure 66 mm[Hg] Frantz Conley MD Work Phone: [facility] 03-12-2024 10:59-0500 Heart rate 56 /min Frantz Conley MD Work Phone: [facility] 03-12-2024 10:59-0500 SaO2% (BldA) [Mass fraction] 98 % Frantz Conley MD Work Phone: [facility] 03-12-2024 10:59-0500 Systolic blood pressure 122 mm[Hg] Frantz Conley MD Work Phone: [facility] 01-01-2024 11:24-0400 Heart rate 52 /min Crescencio Marin DO Work Phone: [facility] 01-01-2024 11:16-0400 Body height 165.1 cm Crescencio Marin DO Work Phone: [facility] 01-01-2024 11:16-0400 Body mass index (BMI) [Ratio] 29.09 kg/m2 Crescencio Marin DO Work Phone: [facility] 01-01-2024 11:16-0400 Body weight 79.29 kg Crescencio Marin DO Work Phone: [facility] 01-01-2024 11:16-0400 Diastolic blood pressure 60 mm[Hg] Crescencio Marin DO Work Phone: [facility] 01-01-2024 11:16-0400 Systolic blood pressure 118 mm[Hg] Crescencio Marin DO Work Phone: [facility] 10-23-2023 11:17-0400 Diastolic blood pressure 84 mm[Hg] II Frantz Conley Work Phone: [facility] 10-23-2023 11:17-0400 Heart rate 70 /min II Frantzmagi Conley Work Phone: [facility] 10-23-2023 11:17-0400 Respiratory rate 18 /min II Frantz Conley Work Phone: [facility] 10-23-2023 11:17-0400 SaO2% (BldA) [Mass fraction] 98 % II Frantz Conley Work Phone: [facility] 10-23-2023 11:17-0400 Systolic blood pressure 146 mm[Hg] II Frantz Conley Work Phone: [facility] 10-23-2023 09:10-0400 Body height 157.48 cm II Frantzmagi Conley Work Phone: [facility] 10-23-2023 09:10-0400 Body weight 78.01 kg II Frantz Conley Work Phone: [facility] 09-17-2023 11:02-0400 Body height 165.1 cm II Frantzmagi Conley Work Phone: [facility] 09-17-2023 11:02-0400 Body mass index (BMI) [Ratio] 28.8 kg/m2 II Frantz Conley Work Phone: [facility] 09-17-2023 11:02-0400 Body weight 78.47 kg II Frantz Conley Work Phone: [facility] 09-17-2023 11:02-0400 Diastolic blood pressure 67 mm[Hg] II Frantz Conley Work Phone: [facility] 09-17-2023 11:02-0400 Heart rate 53 /min II Frantz Conley Work Phone: [facility] 09-17-2023 11:02-0400 Systolic blood pressure 114 mm[Hg] II Frantz Conley Work Phone: [facility] 06-20-2023 10:01-0400 Diastolic blood pressure 68 mm[Hg] Crescencio Marin DO Work Phone: [facility] 06-20-2023 10:01-0400 Heart rate 63 /min Crescencio Marin DO Work Phone: [facility] 06-20-2023 10:01-0400 Systolic blood pressure 126 mm[Hg] Crescencio Marin DO Work Phone: [facility] 06-20-2023 10:00-0400 Body height 165.1 cm Crescencio Marin DO Work Phone: [facility] 06-20-2023 10:00-0400 Body mass index (BMI) [Ratio] 30.29 kg/m2 Crescencio Marin DO Work Phone: [facility] 06-20-2023 10:00-0400 Body weight 82.56 kg Crescencio Marin DO Work Phone: [facility] 05-08-2023 10:30-0500 Body height 166.4 cm Frantz Conley MD Work Phone: [facility] 05-08-2023 10:30-0500 Body mass index (BMI) [Ratio] 29.66 kg/m2 Frantz Conley MD Work Phone: [facility] 05-08-2023 10:30-0500 Body weight 82.1 kg Frantz Conley MD Work Phone: [facility] 05-08-2023 10:30-0500 Diastolic blood pressure 66 mm[Hg] Frantz Conley MD Work Phone: [facility] 05-08-2023 10:30-0500 Heart rate 52 /min Frantz Conley MD Work Phone: [facility] 05-08-2023 10:30-0500 SaO2% (BldA) [Mass fraction] 99 % Frantz Conley MD Work Phone: [facility] 05-08-2023 10:30-0500 Systolic blood pressure 120 mm[Hg] Frantz Conley MD Work Phone: [facility] 09-28-2022 10:27-0400 Body temperature 97.8 [degF] II Frantz Conley Work Phone: [facility] 09-28-2022 10:27-0400 Body weight 81.19 kg II Frantz Conley Work Phone: [facility] 09-28-2022 10:27-0400 Diastolic blood pressure 61 mm[Hg] II Frantz Conley Work Phone: [facility] 09-28-2022 10:27-0400 Heart rate 39 /min II Frantz Conley Work Phone: [facility] 09-28-2022 10:27-0400 Respiratory rate 16 /min II Frantz Conley Work Phone: [facility] 09-28-2022 10:27-0400 SaO2% (BldA) [Mass fraction] 97 % II Frantz Conley Work Phone: [facility] 09-28-2022 10:27-0400 Systolic blood pressure 143 mm[Hg] II Frantz Conley Work Phone: [facility] 09-18-2022 10:00-0400 Body height 165.1 cm Mick Branch Other [employer] [facility] [employer] Other 09-18-2022 10:00-0400 Body mass index (BMI) [Ratio] 29.12 kg/m2 Mick Branch Other [facility] [employer] Other 09-18-2022 10:00-0400 Body weight 79.38 kg Mick Branch Other [facility] [employer] Other 09-18-2022 10:00-0400 Diastolic blood pressure 76 mm[Hg] Mick Branch Other [facility] [employer] Other 09-18-2022 10:00-0400 Systolic blood pressure 113 mm[Hg] Mick Branch Other [facility] [employer] Other 08-08-2022 13:49-0400 Body height 165.1 cm II Frantz Conley Work Phone: [facility] 09-19-2021 13:10-0400 Diastolic blood pressure 64 mm[Hg] II Frantz Conley Work Phone: [facility] 09-19-2021 13:10-0400 Heart rate 68 /min II Frantz Conley Work Phone: [facility] 09-19-2021 13:10-0400 Respiratory rate 16 /min II Frantz Conley Work Phone: [facility] 09-19-2021 13:10-0400 SaO2% (BldA) [Mass fraction] 96 % II Frantz Conley Work Phone: [facility] 09-19-2021 13:10-0400 Systolic blood pressure 119 mm[Hg] II Frantz Conley Work Phone: [facility] 09-19-2021 11:54-0400 Body height 165.1 cm II Frantz Conley Work Phone: [facility] 09-19-2021 11:54-0400 Body mass index (BMI) [Ratio] 29.9 kg/m2 II Frantz Conley Work Phone: [facility] 09-19-2021 11:54-0400 Body temperature 98.3 [degF] II Frantz Conley Work Phone: [facility] 09-19-2021 11:54-0400 Body weight 81.64 kg II Frantz Conley Work Phone: [facility] 09-13-2021 15:15-0400 Body height 165.1 cm Mick Branch Other [employer] Other 09-13-2021 15:15-0400 Body mass index (BMI) [Ratio] 29.95 kg/m2 Mick Branch Other [employer] Other 09-13-2021 15:15-0400 Body weight 81.65 kg Mick Branch Other [employer] Other 08-17-2021 12:00-0400 Body temperature 98.01 [degF] Leonard Johnsno MD [facility] 08-17-2021 11:15-0400 Heart rate 69 /min Leonard Johnson MD [facility] 08-17-2021 11:15-0400 Respiratory rate 19 /min Leonard Johnson MD [facility] 08-17-2021 11:15-0400 SaO2% (BldA) [Mass fraction] 98 % Leonard Johnson MD [facility] 08-17-2021 10:00-0400 Diastolic blood pressure 80 mm[Hg] Leonard [facility] 08-17-2021 10:00-0400 Systolic blood pressure 139 mm[Hg] Leonard Johnson MD [facility] 08-16-2021 21:48-0400 Body height 165.1 cm Leonard Johnson MD [facility] 08-16-2021 21:48-0400 Body mass index (BMI) [Ratio] 30.05 kg/m2 Leonard MAHARAJ [employer] [facility] [employer] 08-16-2021 21:48-0400 Body weight 81.92 kg Leonard MAHARAJ [employer] [facility] 07-11-2021 11:45-0400 Body height 165.1 cm Mick Branch Other [employer] Other 07-11-2021 11:45-0400 Body mass index (BMI) [Ratio] 30.45 kg/m2 Mick Branch Other [employer] Other 07-11-2021 11:45-0400 Body weight 83.01 kg Mick Branch Other [employer] Other 07-11-2021 11:45-0400 Diastolic blood pressure 77 mm[Hg] Mick Branch Other [employer] Other 07-11-2021 11:45-0400 Systolic blood pressure 126 mm[Hg] Mick Branch Other [employer] Other Encounters Encounter Date Encounter Type Care Provider Facility Start: 12-25-2024 End: 12-25-2024 Clinisync Result Encounter Generic External Data Provider [facility] External Department Unsolicited Start: 12-25-2024 End: 12-25-2024 Clinisync Result Encounter Generic External Data Provider [facility] External Department Unsolicited Start: 12-25-2024 End: 12-25-2024 ambulatory Frantz Conley II Work Phone: [facility] Work Phone: Start: 12-25-2024 End: 12-25-2024 Departed Referred Rc Hernandez MD -LAB [facility] Start: 12-07-2024 End: 12-07-2024 Clinisync Result Encounter Generic External Data Provider [facility] External Department Unsolicited Start: 12-07-2024 End: 12-07-2024 Clinisync Result Encounter Generic External Data Provider [facility] External Department Unsolicited Start: 11-11-2024 End: 11-11-2024 ambulatory Frantz Conley II Work Phone: [facility] Work Phone: Start: 11-11-2024 End: 11-11-2024 Patient encounter procedure Mick Branch MD -[facility] Work Phone: Start: 11-02-2024 End: 11-02-2024 Patient encounter procedure Mick Branch MD -Lab [facility] Work Phone: Start: 11-02-2024 End: 11-02-2024 ambulatory Frantz Conley II Work Phone: [facility] Work Phone: Start: 10-20-2024 End: 10-20-2024 Patient encounter procedure Rosanna MIRZA Work Phone: [facility] Comment on above: Medicare annual well ness visit, subsequent (Primary Dx); ACP (advance care planning); Chronic insomnia; Other chronic pain; Benign essential HTN ; Benign hypertensive heart and CKD, 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), w CHF (HCC); Coronary artery disease involving sycuan coronary artery of sycuan heart without angina pectoris ; Dilatation of aorta; History of coronary artery stent placement; PVCs (premature ventricular contractions); Sinus arrhythmia; Sinus bradycardia; Abnormal LFTs; Diverticulosis of colon; Gastroesophageal reflux disease without esophagitis; 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); Cervical spondylolysis; Muscle cramps; Acquired hypothyroidism ; BMI 29.0-29.9,adult; Vitamin D deficiency; Iron deficiency anemia, unspecified iron deficiency anemia type; Pancytopenia, acquired ([facility]-HCC); Former cigarette smoker; Mixed hyperlipidemia ; Situational [...] minutes Frantz Conley MD Work Phone: [facility] Comment on above: Sinus bradycardia (P rimary Dx); PVCs (premature ventricular contractions); Coronary artery disease involving sycuan coronary artery of sycuan heart without angina pectoris ; Liver cirrhosis [...] 15 minutes Crescencio Marin DO Work Phone: [facility] Comment on above: ASHD (arteriosclerot ic heart disease); History of coronary artery stent placement; PVC (premature ventricular contraction); BMI 30.0-30.9,adult; Former cigarette smoker; Hyperlipidemia, unspecified hyperlipidemia type Start: 09-08-2024 End: 09-08-2024 ambulatory [facility] Amb[facility] Start: 05-21-2024 End: 05-21-2024 Patient encounter procedure Frantz Conley II Work Phone: [facility] [place] Work Phone: Start: 05-21-2024 End: 05-21-2024 ambulatory Frantz Conley II Work Phone: [facility] Work Phone: Start: 04-30-2024 End: 04-30-2024 ambulatory Frantz Conley II Work Phone: [facility] Work Phone: Start: 04-30-2024 End: 04-30-2024 Patient encounter procedure Frantz Conley II Work Phone: [facility] [place] Work Phone: Start: 04-22-2024 End: 04-22-2024 Refill Day Saturday [employer] Work Phone: [facility] Comment on [...] Flu vaccine need; Coronary artery disease involving sycuan coronary artery of sycuan heart without angina pectoris (CMS/HCC); Mixed hyperlipidemia (CMS/HCC); Acquired hypothyroidism (CMS/HCC); Prostate cancer screening Start: 03-12-2024 End: 03-12-2024 ambulatory FRANTZ CONLEY Not Available Start: 01-01-2024 End: 01-01-2024 ambulatory [facility] Ambulatory Start: 01-01-2024 End: 01-01-2024 Office outpatient visit 25 minutes Crescencio Marin DO Work Phone: [facility] Comment on above: ASHD (arteriosclerot ic [...] / Non-visit II Montrell Conley Work Phone: [facility] G[facility] Work Phone: Start: 10-23-2023 End: 10-23-2023 Admission to same day surgery center II Frantz Conley Work Phone: [facility]-Digestive [facility] Work Phone: Start: 10-23-2023 End: 10-23-2023 ambulatory II Frantz Conley Work Phone: [facility] Work Phone: Start: 10-01-2023 End: 10-01-2023 ambulatory II Frantz Conley Work Phone: [facility] Work Phone: Start: 10-01-2023 End: 10-01-2023 Patient encounter procedure II Frantz Conley Work Phone: [facility] [place] Work Phone: Start: 09-17-2023 End: 09-17-2023 ambulatory II Frantz Conley Work Phone: [facility] Work Phone: Start: 09-17-2023 End: 09-17-2023 Patient encounter procedure II Frantz Conley Work Phone: [facility] [place] Work Phone: Start: 06-20-2023 End: 06-20-2023 Office outpatient visit 40 minutes Crescencio Aníbal Tomas DO Work Phone: [facility] Comment on above: ASHD (arteriosclerot ic heart disease); History of coronary artery stent placement; Ascending aorta dilation (CMS/HCC); Iron deficiency anemia, unspecified iron deficiency anemia type; PVC (premature ventricular contraction); Former cigarette smoker Start: 06-05-2023 End: 06-05-2023 ambulatory II Frantz Conley Work Phone: [facility] Work Phone: Start: 06-05-2023 End: 06-05-2023 Patient encounter procedure II Frantz Conley Work Phone: [facility] [place] Work Phone: Start: 05-08-2023 Bamboo flowsheet Frantz [...] 05-01-2023 ambulatory MD Jose Manning Work Phone: [facility] Work Phone: Start: 05-01-2023 End: 05-01-2023 Departed Referred MD Jose Mannnig Work Phone: [facility]-LAB [facility] Start: 10-04-2022 End: 10-04-2022 ambulatory II Frantz Conley Work Phone: [facility] Work Phone: Start: 10-04-2022 End: 10-04-2022 Patient encounter procedure II Frantz Conley Work Phone: [facility] [place] Work Phone: Start: 09-28-2022 End: 09-28-2022 ambulatory II Frantz Conley Work Phone: [facility] Work Phone: Start: 09-28-2022 End: 09-28-2022 Registered Recurring II Frantz Conley Work Phone: [facility]Cancer [facility] Work Phone: Start: 09-18-2022 End: 09-18-2022 ambulatory Mikc Branch Other [employer] Other Start: 09-18-2022 Patient encounter procedure Mick Branch [facility] Start: 11-08-2021 End: 11-09-[address] KARL MENON Facility:[facility] Start: 11-06-2021 End: 11-06-2021 Patient encounter procedure II Frantz Conley Work Phone: [facility]-Respiratory Therapy Start: 10-10-2021 End: 10-10-2021 Patient encounter procedure II Frantz Conley Work Phone: [facility]-CT Scan [facility] [place] Start: 09-20-2021 End: 09-20-2021 Patient encounter procedure II Frantz Conley Work Phone: [facility] [place] Start: 09-19-2021 End: 09-19-2021 Admission to same day surgery center II Frantz Conley Work Phone: [facility] Start: 09-15-2021 End: 09-15-2021 Patient encounter procedure II Frantz Conley Work Phone: [facility]-Pre-Surgical Testing Start: 09-13-2021 End: 09-13-2021 ambulatory Mick Branch Other [employer] Other Start: 09-13-2021 Patient encounter procedure Mick Branch [facility] Start: 08-16-2021 End: 08-17-2021 Evaluation and management of inpatient SHANTANU Downs [facility] Start: 08-16-2021 End: 08-17-2021 Evaluation and management of inpatient Leonard Johnson MD [facility] 1 Comment on above: Subarachnoid hemorrh age following injury, no loss of consciousness, initial encounter (HCC) (Primary Dx); Facial laceration, initial encounter Start: 08-16-2021 End: 08-16-2021 ambulatory KEILY RENTERIA Facility: Start: 07-12-2021 End: 07-13-2021 ambulatory MICK BRANCH Facility: Start: 07-11-2021 End: 07-11-2021 ambulatory Mick Plascenciaadam Other [employer] Other Start: 07-11-2021 [facility] visit new patient Mick Branch [facility] Start: 03-01-2021 End: 03-01-[address] FRANTZ CONLEY Facility: Start: 02-03-2021 End: 02-03-[address] FRANTZ CONLEY Facility: Start: 10-30-2018 End: 10-31-2018 Patient encounter procedure JOSIAH SCHAFER Facility:[facility] Start: 02-28-2018 End: 03-01-2018 Patient encounter procedure INDIA ANDREA Facility:[facility] Start: 02-25-2018 End: 02-25-2018 Patient encounter procedure Hardeep Fraga Facility:[facility] Start: 02-11-2018 End: 02-11-2018 Patient encounter procedure Hardeep Fraga Facility:[facility] Procedures Date Procedure Procedure Detail Performing Clinician Start: 12-25-2024 URINE CULTURE - [facility] Generic External Data Provider Start: 12-07-2024 ALL CBC WITH AUTO DIFF Generic External Data Provider Start: 10-01-2024 ALL BASIC METABOLIC PANEL Generic Supervisor Garage al Data Provider Start: 10-01-2024 ALL LIPID [...] History of coronary artery stent placement Crescencio aMrin DO Work Phone: Start: 06-20-2023 Ecg routine [...] Author Start: 04-29-2028 Lipid panel Lipid Panel [facility] Start: 10-20-2025 Medicare Annual Wellness (AWV) Medicare Annual Wellness (AWV) [facility] Start: 09-14-2025 End: 09-14-2025 Patient encounter procedure 09/14/2025 2:00 PM EDT Office Visit [facility] [address] [place] [address] [address] [place] [address] Crescencio Marin DO [address] [place] [address] 2, [address] [place] [address] [facility] Start: 12-25-2024 Bacteria identified in Urine by Culture Urine Culture [facility] Start: 12-25-2024 Urine culture [facility] Start: 12-07-2024 End: 12-07-2024 Patient encounter procedure [facility] Start: 11-23-2024 Influenza vaccination Influenza Vaccine (#1) [facility] Start: 10-20-2024 Medicare Annual Wellness (AWV) Medicare Annual Wellness (AWV) [facility] Start: 10-20-2024 End: 10-20-2024 Patient encounter procedure [facility] Comment on above: Arrived Start: 10-05-2024 End: 10-05-2024 Patient encounter procedure 10/05/2024 11:00 AM EDT Office Visit [facility] [address] [place] [address] Frantz Conley MD [address] [place] [address] [facility] Start: 09-08-2024 End: 09-08-2024 Patient encounter procedure 09/08/2024 3:00 PM EDT Office Visit [facility] [address] [place] [address] Crescencio Marin DO [address] [place], [place] [id number] [facility] Start: 09-08-2024 End: 09-08-2025 Alanine aminotransferase [Enzymatic activity/volume] in Serum or Plasma by With P-5'-P Alanine Aminotransferase Lab Routine ASHD (arteriosclerotic heart disease) Hyperlipidemia, unspecified hyperlipidemia type Expected: 09/08/2024 (Approximate), Expires: 09/08/2025 [facility] Service Area Work Phone: Comment on above: Expected: 09/08/2024 (Approximate), Expi res: 09/08/2025 Start: 09-08-2024 End: 09-08-2025 Aspartate aminotransferase [Enzymatic activity/volume] in Serum or Plasma by With P-5'-P Aspartate Aminotransferase Lab Routine ASHD (arteriosclerotic heart disease) Hyperlipidemia, unspecified hyperlipidemia type Expected: 09/08/2024 (Approximate), Expires: 09/08/2025 [facility] Work Phone: Comment on above: Expected: 09/08/2024 (Approximate), Expi res: 09/08/2025 Start: 09-08-2024 End: 09-08-2025 Basic metabolic 2000 panel - Serum or Plasma Basic Metabolic Panel Lab Routine ASHD (arteriosclerotic heart disease) PVC (premature ventricular contraction) Expected: 09/08/2024 (Approximate), Expires: 09/08/2025 [facility] Work Phone: Comment on above: Expected: 09/08/2024 (Approximate), Expi res: 09/08/2025 Start: 09-08-2024 End: 09-08-2025 Lipid 1996 panel - Serum or Plasma Lipid Panel Lab Routine ASHD (arteriosclerotic heart disease) Hyperlipidemia, unspecified hyperlipidemia type Expected: 09/08/2024 (Approximate), Expires: 09/08/2025 [facility] Work Phone: Comment on above: Expected: 09/08/2024 (Approximate), Expi res: 09/08/2025 Start: 04-30-2024 Lqgcc-1-ffslqifpbsr.tumor marker [Mass/volume] in Serum or Plasma [facility] Start: 03-12-2024 End: 03-12-2025 Lipid [...] procedure 12/25/2023 10:20 AM EDT Office Visit [facility] [address] [facility] [address] [place] [id number] Crescencio Marin DO [address] [facility] [address] [place] [address] [facility] Start: 11-24-2023 COVID-19 Vaccine ( season) COVID-19 Vaccine () [facility] Start: 11-24-2023 COVID-19 Vaccine () COVID-19 Vaccine () [facility] Start: 11-24-2023 Influenza vaccination Influenza Vaccine (#1) [facility] Start: 11-06-2023 End: 11-06-2023 Patient encounter procedure 11/06/2023 11:00 AM EDT Office Visit [facility] [address] [facility] [address] [place] [address] Frantz Conley MD [address] [facility] [address] [place] [address] [facility] Start: 10-23-2023 [facility] Start: 10-21-2023 End: 10-21-2023 Patient encounter procedure 10/21/2023 11:00 AM EDT Office Visit [facility] [address] [facility] [address] [place] [address] Frantz Conley MD [address] [facility] [address] [place] [address] [facility] Start: 09-17-2023 Yivql-3-psnezvjqlws.tumor marker [Mass/volume] in Serum or Plasma [facility] Start: 08-23-2023 Medicare Annual Wellness (AWV) Medicare Annual Wellness (AWV) [facility] Start: 06-26-2023 End: 06-26-2023 Professional / ancillary services management 06/26/2023 10:00 AM EDT Ancillary Procedure [facility] [address] [facility] [address] [place] [address] [facility] Start: 06-20-2023 End: 06-19-2024 Holter monitor study Holter Or [employer] Manager Cardiac Services Routine PVC (premature ventricular contraction) Expected: 06/20/2023 (Approximate), Expires: 06/19/2024 [facility] Service Area Work Phone: Comment on above: Expected: 06/20/2023 (Approximate), Expi res: 06/19/2024 Start: 06-10-2023 End: 06-10-2023 Patient encounter procedure 06/10/2023 10:30 AM EDT Office Visit [facility] [address] [place] [address] Frantz Conley MD [address] [place] [address] [facility] Start: 05-08-2023 End: 05-08-2024 US Abdomen limited [facility] Work Phone: Comment on above: Expected: 05/08/2023, Expires: 5 Start: 05-08-2023 End: 05-08-2023 Patient encounter procedure 05/08/2023 10:30 AM EST Office Visit [facility] [address] [place] [address] Frantz Conley MD [address] [place] [address] Arrived [facility] Comment on above: Arrived Start: 11-23-2022 COVID-19 Vaccine ( season) COVID-19 Vaccine ( season) [facility] Start: 11-08-2022 Echocardiography Echocardiogram [facility] Start: 05-01-2022 Lipid panel Lipids [facility] Start: 09-19-2021 [facility] Work Phone: Start: 08-24-2021 End: 08-17-2022 CT HEAD WO CONTRAST CT HEAD WO CONTRAST Imaging Routine Subarachnoid hemorrhage following injury, no loss of consciousness, initial encounter (HCC) Expected: 08/24/2021, Expires: 08/17/2022 [facility] [employer] [facility] Work Phone: Comment on above: Expected: 08/24/2021, Expires: Start: 2021 RSV High Risk: (Elderly (60+) or Population) (1 - 1-dose 75+ series) RSV High Risk: (Elderly (60+) or Population) (1 - 1-dose 75+ series) [facility] Start: 09-30-2019 Pneumococcal 65+ years Vaccine (2 - PCV) Pneumococcal 65+ years Vaccine (2 - PCV) [facility] Start: 09-30-2019 Pneumococcal vaccination Pneumococcal Vaccine (2 of 2 - PCV) [facility] Start: 09-30-2019 Pneumococcal Vaccine: 65+ Years (2 - PCV) Pneumococcal Vaccine: 65+ Years (2 - PCV) [facility] Start: 09-30-2019 Pneumococcal Vaccine: 65+ Years (2 of 2 - PCV) Pneumococcal Vaccine: 65+ Years (2 of 2 - PCV) [facility] Start: 2006 Hepatitis B Vaccines (1 of 3 - Risk 3-dose series) Hepatitis B Vaccines (1 of 3 - Risk 3-dose series) [facility] Start: 2006 RSV patients and/or patients aged 60+ years (1 - 1-dose 60+ series) RSV patients and/or patients aged 60+ years (1 - 1-dose 60+ series) [facility] Start: 07-31-1991 Screening for malignant neoplasm of colon [facility] Start: 1968 DTaP/Tdap/Td Vaccines (1 - Tdap) DTaP/Tdap/Td Vaccines (1 - Tdap) [facility] Start: 1965 DTaP/Tdap/Td vaccine (1 - Tdap) DTaP/Tdap/Td vaccine (1 - Tdap) [facility] Start: 1965 Hepatitis A Vaccines (1 of 2 - Risk 2-dose series) Hepatitis A Vaccines (1 of 2 - Risk 2-dose series) [facility] Start: 1964 Diabetes mellitus screening Diabetes Screening [facility] Start: 1964 Hepatitis C screening [facility] Start: 1958 Depression Screen Depression Screen [facility] Start: 1946 Creatinine measurement Creatinine Level [facility] Start: 1946 Medicare Annual Wellness Visit Medicare Annual Wellness Visit (AWV) [facility] Start: 1946 Potassium measurement Potassium Level [facility] Start: 1946 Thyroid stimulating hormone measurement TSH Level [facility] Oxygen therapy [[facility] Data Set] Initiate Oxygen Therapy Protocol Respiratory Care Routine As Needed until discontinued starting 08/16/2021 [facility] Work Phone: Comment on above: As Needed until discontinued starting Patient Education Hemorrhoids Co ross polyps Esophageal varices Diverticulosis Know your Meds [facility] Work Phone: Prostate specific Ag [Mass/volume] in Serum or Plasma PSA Lab Routine Prostate cancer screening Ordered: 03/12/2024 [facility] [employer] Work Phone: Comment on above: Ordered: 03/12/2024 End: 08-16-2021 Speech and language therapy regime Speech language pathology evaluation 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 Routine One Time for 1 Occurrences starting 08/16/2021 until 08/16/2021 [facility] Work Phone: Comment on above: One Time for 1 Occurrences starting 07/24 until 08/16/2021 URINE CULTURE - [facility] URINE CULTU RE - [facility] Lab Routine 12/25/2024 2:15 AM EDT [facility] US Abdomen limited [facility] Immunizations Immunization Date Immunization Notes Care Provider Fa [facility] 03-12-2024 Influenza, High-dose Seasonal, Quadrivalent, Preservative Free Frantz Conley MD Work Phone: [facility] 03-12-2024 influenza virus vacc ine, unspecified formulation Generic Provider [facility] 12-15-2023 influenza, high dose seasonal, preservative-free Generic Provider [facility] 01-04-2023 Influenza, Seasonal, Quadrivalent, Adjuvanted Frantz Conley MD Work Phone: [facility] 01-04-2023 influenza virus vacc ine, unspecified formulation Generic Provider [facility] 03-21-2022 Influenza, High-dose Seasonal, Quadrivalent, Preservative Free Frantz Conley MD Work Phone: [facility] Work Phone: 03-01-2021 COVID-19 Ad26.COV2.S (Caleb) II Frantz Conley Work Phone: [facility] 01-06-2021 influenza, high dose seasonal, preservative-free Frantz Conley MD Work Phone: [facility] 01-06-2021 Influenza, High-dose Seasonal, Quadrivalent, Preservative Free Frantz Conley MD Work Phone: [facility] 05-26-2020 COVID-19 mRNA-1273 (Moderna) II Frantz Conley Work Phone: [facility] 04-28-2020 COVID-19 mRNA-1273 (Moderna) II Frantz Conley Work Phone: [facility] 01-06-2020 Influenza, High-dose Seasonal, Quadrivalent, Preservative Free Frantz Conley MD Work Phone: [facility] 08-18-2019 zoster vaccine recombinant Frantz Conley MD Work Phone: [facility] 04-10-2019 zoster vaccine recombinant Frantz Conley MD Work Phone: [facility] 02-06-2019 influenza, high dose seasonal, preservative-free Frantz Conley MD Work Phone: [facility] 09-29-2018 pneumococcal polysaccharide vaccine, 23 valent Frantz Conley MD Work Phone: [facility] 01-14-2018 Influenza, High-dose Seasonal, Quadrivalent, Preservative Free Frantz Conley MD Work Phone: [facility] 12-03-2016 Influenza, High-dose Seasonal, Quadrivalent, Preservative Free Frantz Conley MD Work Phone: [facility] 03-28-2015 influenza, seasonal, injectable, preservative free Frantz Conley MD Work Phone: [facility] 01-10-2015 seasonal influenza, intradermal, preservative free Frantz Conley MD Work Phone: [facility] Payers Date Payer Category Payer [employer] ( and others) [id number] 2024 Self-pay [id number] 2023 For Life (TFL) F OR LIFE [id number] 2022 [employer] ( and others) [id number] 2022 () [id number] 2015 [employer] ( and others) [id number] 2011 Medicare [id number] 1959 [employer] ( and others) [id number] 1959 Medicare [id number] 1946 Unknown [id number] 2.16.840.1.305019.3.579.2 .727 1946 Unknown [id number] 2.16.840.1.725991.3.579.2 .727 1946 Unknown [id number] 2.16.840.1.399353.3.579.2 .647 1946 Unknown [id number] 2.16.840.1.339584.3.579.2 .647 1946 Unknown [id number] 2.16.840.1.112828.3.579.2 .175 1946 Unknown [id number] 2.16.840.1.618746.3.579.2 .593 1946 Unknown [id number] 2.16.840.1.087423.3.579.2 .593 1946 Unknown [id number] 2.16.840.1.987913.3.579.2 .593 1946 Unknown [id number] 2.16.840.1.362564.3.579.2 .593 1946 Unknown [id number] 2.16.840.1.903490.3.579.2 .593 1946 Unknown [id number] 2.16.840.1.600922.3.579.2 .1244 1946 Unknown [id number] 2.16.840.1.773153.3.579.2 .1244 1946 Unknown [id number] 2.16.840.1.768395.3.579.2 .1259 1946 Unknown [id number] 2.16.840.1.220154.3.579.2 .1259 1946 Unknown [id number] 2.16.840.1.055137.3.579.2 .1259 Unknown [id number] 2.16.840.1.768372.3.579.2 .531 Unknown [id number] 2.16.840.1.787055.3.579.2 .531 Unknown [id number] 2.16.840.1.135598.3.579.2 .531 Social History Date Type Detail Facility Start: 08-16-2021 Tobacco smoking status NHIS Tobacco smoking consumption unknown [facility] Start: 08-16-2021 End: 09-08-2024 Alcohol intake Lifetime non-drinker (finding) true[x] Media Phone: Start: 08-16-2021 History SDOH Alcohol Frequency 1 true[x] Media Phone: Start: 1945 Sex Assigned At Not on file true[x] Media Phone: Start: 08-06-2021 End: 01-01-2024 Exposure to SARS-CoV-2 (event) Not sure true[x] Media Phone: Start: 04-15-2023 End: 10-20-2024 Sex Assigned At [facility] Start: 05-10-2021 End: 10-23-2023 Tobacco smoking status NHIS Never smoked tobacco (finding) [facility] Start: 1945 Sex Assigned At Male [facility] Start: 08-16-2022 End: 01-01-2024 Tobacco [...] to any clubs or organizations such as restorationist groups, unions, fraternal or athletic groups, or school groups? Yes [facility] Are you now , , , , never or living with a partner? [facility] How often to you hav e a drink containing alcohol? Never [facility] (I/We) worried wheth er (my/our) food would run out before (I/we) got money to buy more. Never true [facility] Start: 08-20-2022 Alcohol Comment caffeine intake: 1-2 cups per day. [facility] Start: 06-20-2023 End: 01-01-2024 Tobacco smoking status NHIS Ex-smoker [facility] Work Phone: End: 03-25-2003 History of tobacco use Current smoker [facility] Work Phone: End: 03-25-2003 History of tobacco use Cigarette Smoker [facility] Work Phone: Start: 06-29-2023 Gender identity Identifies as male gender (finding) [facility] Work Phone: Start: 06-29-2023 Sexual orientation Heterosexual (finding) [facility] Work Phone: Start: 05-01-2024 Sex Patient sex unknown (finding) [facility] Start: 05-22-2024 Sex Male (finding) [facility] Goals Date Patient Goal Desired Activity /State Functional Status Date Assessment Result Facility 10-20-2024 Patient Health Quest ionnaire 2 item (PHQ-2) [Reported] [facility] 10-05-2024 Patient Health Quest ionnaire 2 item (PHQ-2) [Reported] [facility] Clinical Notes 05-23-2021 to 11-11-2024 Note [...] 11 1:26pm Pancytopenia, acquired chronic 2024 1:26pm [facility] Work Phone: 1(360) 557-129807-29-2025 History of Present illness Narrative* HERMES Campa [...] 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 Loyal-3 Fatty Acids (Fish Oil) 1000 MG capsule [...] essential HTN The patient is seeing a biomedical engineering supervisor for this condition, treatment is deferred to that specialist. Correspondence from that specialist and any available testing were reviewed during today's visit. 6. 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 Correspondence from that specialist and any available testing were reviewed during today's visit. 7. Coronary artery disease involving sycuan coronary artery of sycuan heart without angina pectoris The patient is seeing a biomedical engineering supervisor for this condition, treatment is deferred to that specialist. Correspondence from that specialist and any available testing were reviewed during today's visit. 8. Dilatation of aorta The patient is seeing a biomedical engineering supervisor for this condition, treatment is deferred to that specialist. Correspondence from that specialist and any available testing were reviewed during today's visit. 9. History of coronary artery stent placement The patient is seeing a biomedical engineering supervisor for this condition, treatment is deferred to that specialist. Correspondence from that specialist and any available testing were reviewed during today's visit. 10. PVCs (premature ventricular contractions) The patient is seeing a biomedical engineering supervisor for this condition, treatment is deferred to that specialist. Correspondence from that specialist and any available testing were reviewed during today's visit. 11. Sinus arrhythmia The patient is seeing a biomedical engineering supervisor for this condition, treatment is deferred to that specialist. Correspondence from that specialist and any available testing were reviewed during today's visit. 12. Sinus bradycardia The patient is seeing a biomedical engineering supervisor for this condition, treatment is deferred to that specialist. Correspondence from that specialist and any available testing were reviewed during today's visit. 13. Abnormal LFTs The patient is seeing a biomedical engineering supervisor for this condition, treatment is deferred to that specialist. Correspondence from that specialist and any available testing were reviewed during today's visit. 14. Diverticulosis of colon The patient is seeing a biomedical engineering supervisor for this condition, treatment is deferred to that specialist. Correspondence from that specialist and any available testing were reviewed during today's visit. 15. Gastroesophageal reflux disease without esophagitis The patient is seeing a biomedical engineering supervisor for this condition, treatment is deferred to that specialist. Correspondence from that specialist and any available testing were reviewed during today's visit. 16. 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 Correspondence from that specialist and any available testing were reviewed during today's visit. 23. Pancytopenia, acquired (CMS-HCC) The patient is seeing a biomedical engineering supervisor for this condition, treatment is deferred to [...] bleeding (HCC) The patient is seeing a biomedical engineering supervisor for this condition, treatment is deferred to that specialist. Correspondence from that specialist and any available testing were reviewed during today's visit. 29. Other secondary pulmonary hypertension (HCC) The patient is seeing a biomedical engineering supervisor for this condition, treatment is deferred to that specialist. Correspondence from that specialist and any available testing were reviewed during today's visit. 30. Grade II diastolic dysfunction The patient is seeing a biomedical engineering supervisor for this condition, treatment is deferred to that specialist. Correspondence from that specialist and any available testing were reviewed during today's visit. Follow up for Appointment As Scheduled. VALDEZ RouseC documented in this encounterOzarks Medical [id number] History of Present illness Narrative* Frantz Conley [...] by mouth 1 (one) time each day. 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 - This office visit was spent in consultation regarding the patient's current medical problems, differential diagnoses, testing/imaging results, and treatment options. Greater than 25 minutes was spent in [id number] consultation and coordination of care. Follow up in about 2 months (around 12/06/2024) for Recheck. documented in this encounterOzarks Medical [id number] History of Present illness Narrative* Crescencio Marin, [...] with PCI of the ostial/proximal circumflex at [facility] he says around 4+ years ago and [...] tablet 1 tablet, Daily fish oil concentrate (Loyal-3) 120-180 mg capsule 1,000 mg, Daily levothyroxine [...] exam, discussion and plan. documented in this [facility] Work Phone: 1(663) 554-944406-17-2025 Instructions* Patient Instructions* Kina Mcduffie RN - [...] instructions on dietary changes. documented in this [facility] Work Phone: 1(146) 186-241402-27-2025 Radiology [facility] [place] [address] [place] [address] Ultrasound Report Signed Patient: Pankaj Payne MR#: Selene [id number] : 1945 Acct:[id number] Age/Sex: 78 / M ADM Date: 5 Loc: Room: Type: [facility] Attending Dr: Mick Branch MD Ordering [...] Claros Jr., D.OKita05/21/2024 10:23 AM Dictation Location: [place] [address] Tech: Lizzy Llanes Transcribed By: USMAN 05/21/24 1023 Dictated By: Kartik Claros Jr, DO 05/21/24 1022 Signed By: 05/21/24 [facility]3 [facility]02-06-2025 Evaluation note* Diagnosis Onset Date [...] Pancytopenia, acquired chronic Fe bruary 2024 12:56pm [facility] Work Phone: 1(334) 420-397212-19-2024 History of Present illness Narrative* Frantz Conley [...] by mouth 1 (one) time each day. Loyal-3 Fatty Acids (Fish Oil) 1000 MG capsule [...] need - Influenza, high-dose seasonal, quadrivalent, PF (JHD447) (Fluzone High Dose Quad North 0.7mL dose) Coronary artery disease involving sycuan coronary artery of sycuan heart without angina pectoris (CMS/HCC) - The patient is experiencing no symptoms from this condition currently, it is considered medicallycontrolled and no change in current therapies are planned. Mixed hyperlipidemia (CMS/HCC) - Lipid panel; Future Acquired hypothyroidism (CMS/HCC) - TSH W/REFLEX TO FT4; Future Prostate cancer screening - PSA Follow up in about 6 months (around 09/10/2024) for Wellness. documented in this encounterOzarks Medical [id number] History of Present illness Narrative* Crescencio Marin, [...] with PCI of the ostial/proximal circumflex at [facility] he says around 3 years [...] daily., Disp: , Rfl: fish oil concentrate (Loyal-3) 120-180 mg capsule, Take 1 capsule (1,000 [...] exam, discussion and plan. [facility] Work Phone: 1([phone]) 712-445210-09-2024 Instructions* Patient Instructions* Shawna Flores RN - [...] Provided instructions on exercise. documented [facility] Work Phone: 1(792) 477-469607-31-2024 [facility] History of Present illness Narrative* [...] with PCI of the ostial/proximal circumflex at [facility] he says around 3 years [...] bedtime., Disp: , Rfl: fish oil concentrate (Loyal-3) 120-180 mg capsule, Take 1 capsule (1,000 [...] exam, discussion and plan. [facility] Work Phone: 1(265) 752-126803-28-2024 Instructions* Patient Instructions* Bernadette Santillan LPN - [...] Provided instructions on exercise. documented in this [facility] Work Phone: 1(515) 754-204702-14-2024 History of Present illness Narrative* Frantz Conley MD - 05/08/2023 10:30 AM EST Subjective Patient ID: Pankaj Payne is a 77 y.o. male who presents for Follow-up ([facility] stay: admitted 04/30/23 dx: anemia discharged home 05/01/23 follow up with hematology was 05/07/23) and Anemia. Flowsheet Row Telephone from 05/03/2023 in [facility] CI FM with Frantz Conley MD Discharge Information ED or Hospital Discharge? Hospital Patient has been contacted within two business days of discharge Yes Discharge Date 05/01/23 Discharge Hospital [facility] Discharged To: Home Setting Engagement Call [...] by mouth 1 (one) time each day. Loyal-3 Fatty Acids (Fish Oil) 1000 MG capsule [...] was discussed with Dr Sevilla, Hematology at [facility], he is following the patient and did see himin the hospital. Iron deficiency anemia, unspecified iron deficiency anemia type - Ambulatory referral to Gastroenterology; Future Other cirrhosis of liver (CMS/HCC) - US LIVER; Future Fatty liver disease, nonalcoholic - US LIVER; Future Hyperchylomicronemia (CMS/HCC) Follow up in about 4 weeks (around 06/05/2023) for Test/Lab Review. documented in this encounterOzarks Medical [id number] Evaluation note* Encounter Date Diagnosis Assessment Notes Treatment Notes Treatment Clinical Notes Aug, Cirrhosis (ICD-10 - K74.60) Dr. Conley (PCP) will order lab work Repeat fibroscan in 2024 Rto 1 yr Aug, NAFLD (nonalcoholic fatty liver disease) (ICD-10 - K76.0) Aug, PLASCENCIA (nonalcoholic steatohepatitis) (ICD-10 - K75.81) XOJET Other 05-17-2023 Consult note Author Zoila Castorena [facility] August 08, 2022 3:09pm Note Date/Time August 08, 2022 2:08p m [facility] at [address] [address] Hem/Onc Consult Note - OP Signed Patient: Pankaj Payne MR#: [id number] : 1945 Acct:[id number] Age/Sex: 77 / M Type: REG RCR Copies to: MD Frantz Dobbisn II, MD~ HPI Date/Time of Service: Date [...] smoking cigars while he was in the [employer] but was not a regular cigarette smoker. [...] PO QAM 04/26/21 [History Confirmed 08/08/22] omega 0-azw-ecu-fish oil 1,000 mg (120 mg-180 mg) capsule [...] EXTREMITIES: No edema, cyanosis or clubbing. No Ailna sign. NEUROLOGICAL: Alert and oriented. Cranial nerves [...] for coordination of care (as documented) and urxn-st-fgut counseling of patient and/or family. Dictated By: Zoila Castorena MD DD/ [id number] Signed By: <Electronically signed by MD Zoila Castorena> 08/08/22 [facility] [facility] Work Phone: 1(538) 482-588106-22-2022 Evaluation note* Encounter Date Diagnosis Assessment Notes Treatment Notes Treatment Clinical Notes Aug, Fatty liver (ICD-10 - K76.0) ENCOURAGED WATCHING DIET, EXERCISE AND WEIGHT LOSS. WILL NEED TO MONITOR IMAGING EVERY 6 MONTHS. PROCEED WITH EGD Aug, Other cirrhosis of liver (ICD-10 - K74.69) Aug, NAFLD (nonalcoholic fatty liver disease) (ICD-10 - K76.0) Aug, PLASCENCIA (nonalcoholic steatohepatitis) (ICD-10 - K75.81) XOJET Other 05-26-2022 Hospital Discharge instructions* Instructions* Pato [...] called to the trauma nurse line at [phone] and please leave a message. Trauma is [...] Injury Discharge Instructions Thank you for choosing [facility] for your recovery needs. The following instructions will help to ensure your comfort and that you are wellprepared for your recovery. Follow-up Visit: The office is located at: [facility] [address], [address], [place] [address] [x] Please have a CT scan of your head done prior to this appointment. Please also call your primary care physician to schedule an appointment for further evaluation and care. You can obtain CT head closer to home and have them electronically send the imaging to [facility] so we can see the scan You can follow up with Neurosurgery closer to home of you can do virtual visit with Porsche the outpatient EXTERNAL GRINDER TOOL Ok to restart your ASPIRIN today 08/17 [...] medications. YOU SHOULD CALL THE OFFICE AT [phone] IF YOU HAVE ANY OF THE FOLLOWING: [...] the emergency department. 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 [...] Date: 08/16/2021 Hospital day 1 Other vehicle: ID Watchdog Past Medical History: Diagnosis Date Hyperlipidemia Hypertension [...] HISTORY: ORDERING SYSTEM PROVIDED HISTORY[facility] TECHNOLOG[facility] PROVIDED HISTORY: SAH and SDH [...] SYSTEM PROVIDED HISTORY: Impact with object [place] archivist TECHNOLOGIST PROVIDED HISTORY: Impact with object [place] archivist Decision Support Exception - unselect if not [...] Active Problem List Diagnosis SAH (subarachnoid hemorrhage) ([facility]) Assessment/Plan: See most recent progress note documented in this encounterBON CLEARSKY RE[facility]ABIL[facility] H[facility] OF AVONDALETansler Phone: 1(832) 887-211804-19-2022 Evaluation note* Encounter Date Diagnosis Assessment Notes Treatment Notes Treatment Clinical Notes Jun, Cirrhosis (ICD-10 - K74.60) XOJET Other 03-01-2022 History general Narrative - Reported* Type Description Date Surgical History cholecystectomy 05/2021 Surgical History heart stent Surgical History cataracts, bilaterally XOJET Other 03-01-2022 History general Narrative - Reported* Type Description Date Surgical History cholecystectomy 05/2021 Surgical History heart stent Surgical History cataracts, bilaterally Hospitalization History see surgical hx [facility] [employer] Other Evaluation note* Diagnosis SAH (subarachnoid hemorrhage) (HCC)- Primary Subarachnoid hemorrhage Subarachnoid hemorrhage following injury, no loss of consciousness, initial encounter (HCC) Facial laceration, initial encounter Subdural hematoma (HCC) Subdural hemorrhage documented in this encounter [facility] Work Phone: evaluation noteNo assessment information available [facility] Work Phone: Evaluation note* Diagnosis Onset Date Resolution Status 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 Pancytopenia, acquired chron ic [facility] Work Phone: Evaluation note* Diagnosis Pancytopenia, acquired (CMS/HCC)- Primary Pancytopenia Iron deficiency anemia, unspecified iron deficiency anemia type Other cirrhosis of liver (CMS/HCC) Fatty liver disease, 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 in this encounter [facility]* Diagnosis ASHD (arteriosclerotic heart disease) Coronary atherosclerosis of unspecified type of vessel, sycuan or graft History of coronary artery stent placement Ascending aorta dilation (CMS/HCC) Thoracic aneurysm without mention of rupture Iron deficiency anemia, unspecified iron deficiency anemia type PVC (premature ventricular contraction) Other premature beats Former cigarette smoker Personal history of tobacco use, presenting hazards to health documented in this encounter [facility] Work Phone: Evaluation note* Diagnosis Onset Date Resolution Status Cirrhosis, nonalcoholic acut e Non-alcoholic fatty liver disease acute Nonalcoholic steatohepatitis (PLASCENCIA) acute [facility] Work Phone: Evaluation note* Diagnosis ASHD (arteriosclerotic heart disease) Coronary atherosclerosis of unspecified type of vessel, sycuan or graft PVC (premature ventricular contraction) Other premature beats History of coronary artery stent placement Former cigarette smoker Personal history of tobacco use, presenting hazards to health BMI 29.0-29.9,adult Bradycardia Other specified cardiac dysrhythmias documented in this encounter [facility] Work Phone: Evaluation note* Diagnosis Benign essential HTN (CMS/HCC)- Primary Flu vaccine need Coronary artery disease involving sycuan coronary artery of sycuan heart without angina pectoris (CMS/HCC) Mixed hyperlipidemia (CMS/HCC) Mixed hyperlipidemia Acquired hypothyroidism (CMS/HCC) Unspecified hypothyroidism Prostate cancer screening Special screening for malignant neoplasm of prostate documented in this encounter [facility]* Diagnosis Mixed hyperlipidemia (CMS/HCC)- Primary Mixed hyperlipidemia documented in this encounter [facility] HealthcareEvaluation note* Diagnosis ASHD (arteriosclerotic heart disease) Coronary atherosclerosis of unspecified type of vessel, sycuan or graft History of coronary artery stent placement PVC (premature ventricular contraction) Other premature beats BMI 30.0-30.9,adult Former cigarette smoker Personal history of tobacco use, presenting hazards to health Hyperlipidemia, unspecified hyperlipidemia type documented in this encounter [facility] Work Phone: Evaluation note* Diagnosis Sinus bradycardia- Primary Other specified cardiac dysrhythmias PVCs (premature ventricular contractions) Other premature beats Coronary artery disease involving sycuan coronary artery of sycuan heart without angina pectoris 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) documented in this encounter [facility] HealthcareEvaluation note* Diagnosis Medicare annual wellness visit, subsequent- Primary ACP (advance care planning) Other specified counseling Chronic insomnia Insomnia, unspecified Other chronic pain Benign essential HTN Benign hypertensive heart and CKD, 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), w CHF (HCC) Coronary artery disease involving sycuan coronary artery of sycuan heart without angina pectoris Dilatation of aorta [...] II diastolic dysfunction documented in this encounter [facility] HealthcareEvaluation note* Diagnosis Onset Date Resolution Status Admit Date Cirrhosis, nonalcoholic acute A ugust 2024 1:26pm Esophageal varices acute November 11, 2024 1:26pm Metabolic dysfunction-associ ated steatohepatitis (MASH) acute November 112024 1:26pm [facility] Work Phone: History and physical note Author Mick Branch [facility] October 23, 2023 10:14am Note Date/Time October 23, 2023 10:1 4am [facility] [address] [place] [address] Gastroenterology H&P Signed Patient: Pankaj Payne MR#: [id number] : 1945 Acct:[id number] Age/Sex: 78 / M Adm Date: 4 Loc: Room: Type: [facility] Attending Dr: Mick Branch MD Copies [...] signed by Mick Branch MD> 10/23/23 1014 [facility] Work Phone: Hospital Discharge instructions Additional [...] NOT operate machinery such as power tools, DirectMoneyn mowers, snow [place] Espanawers, sewing machines, etc. for 24 hours. - [...] NOT operate machinery such as power tools, DirectMoneyn mowers, Brandwatchwers, sewing machines, etc. for 24 hours. - [...] cancer screening. -Continue to follow with your lay midwife Dr. Sevilla. -Notify the doctor if you have any problems. -Follow up with PCP. - Office number [phone].[facility] Work Phone: reason for referral (narrative)* Consultation (Routine) - Authorized Specialty Diagnoses / Procedures Referred By Contac t Referred To Contact Gastroenterology Diagnoses Iron deficiency anemia, unspecified iron deficiency anemia type Procedures SD OFFICE/OUTPATIENT [facility] 60 MINUTES Frantz Conley MD [address] [facility] [address] [place] [address] Mick Branch MD [address] [facility] [address] [place] [address] Referral ID Status Reason Start Date Expiration Date Visits Requested Visits Authorized [id number] Authorized Specialty Services Required 05/08/2023 11/04/2023 1 1 [facility] (narrative)No reason for referral information availableMer[facility] Work Phone: reason for visit NarrativePT HERE AT REQUEST OF DR DAY FOR EVALUATION AND TREATMENT OF CIRRHOSIS, REFERRAL NOTE [facility] [employer] Other Summary Purpose Family History Relationship Condition [...] 9:52am Hospital Course Note MR#: [id number] 2 [facility] Pt. Name: Pankaj Payne Admitted: [...] Procedures CT HEAD WO CONTRAST Pato Grissom, PROCESS DESIGN ENGINEER - EXTERNAL GRINDER TOOL [address] [place] [address] Referral ID Status Reason Start Date Expiration Date Visits Re quested Visits Authorized [id number] Open 08/24/2021 08/24/2022 1 1 Specialty Diagnoses / Procedures Referred By Contac t Referred To Contact Cardiology Diagnoses PVC (premature ventricular contraction) Procedures Holter Or Event Insights Manager Crescencio Mairn DO [address] [facility], [address] [place] [address] Referral ID Status Reason Start Date Expiration Date V isits Requested Visits Authorized [id number] Pending Review 06/20/2023 06/19/2024 1 1 Specialty Diagnoses / Procedures Referred By Contac t Referred To Contact Diagnoses PVC (premature ventricular contraction) Procedures ECG 12 Lead Crescencio Marin DO [address] [facility], [place] [phone] Referral ID Status Reason Start Date Expiration Date V isits Requested Visits Authorized [id number] Authorized 06/20/2023 06/19/2024 1 1 Specialty Diagnoses / Procedures Referred By Contac t Referred To Contact Cardiology Diagnoses ASHD (arteriosclerotic heart disease) Procedures Follow Up In Cardiology Crescencio Marin, DO [address] [facility] 2, [place] [phone] Crescencio Marin, DO [address], [place] [phone] Referral ID Status Reason Start Date Expiration Date V isits Requested Visits Authorized [id number] Authorized 06/20/2023 06/19/2024 1 1 Specialty Diagnoses / Procedures Referred By Contac t Referred To Contact Diagnoses PVC (premature ventricular contraction) Bradycardia Procedures ECG 12 Lead Crescencio Marin, DO [address] [facility] 2, [place] [phone] Referral ID Status Reason Start Date Expiration Date V isits Requested Visits Authorized [id number] Authorized 01/01/2024 12/31/2024 1 1 Referral ID Status Reason Start Date Expiration Date V isits Requested Visits Authorized [id number] Authorized 01/01/2024 12/31/2024 1 1 Chief Complaint [...] section and content) DATE CREATED AUTHOR 03/05/2018 [place] [facility] DATE CREATED AUTHOR AUTHOR'S ORGANIZ ATION 11/12/2018 [facility] DATE CREATED AUTHOR AUTHOR'S ORGANIZ ATION 06/08/2021 [facility] dical Specialist DATE CREATED AUTHOR AUTHOR'S ORGANIZ ATION 08/20/2021 [facility] DATE CREATED AUTHOR AUTHOR'S ORGANIZ ATION 11/15/2021 [facility] DATE CREATED AUTHOR AUTHOR'S ORGANIZ ATION 07/11/2024 [facility] DATE CREATED AUTHOR AUTHOR'S ORGANIZ ATION 09/11/2024 [facility] DATE CREATED AUTHOR AUTHOR'S ORGANIZ ATION 10/22/2024 [facility] dical Specialists [facility] DATE CREATED AUTHOR AUTHOR'S ORGANIZ ATION 11/13/2024 [facility] Reason for Visit (unrecogniz ed [...] ECG 12 Lead Crescencio Marin DO [address] [facility], [address] [place] [address] Referral ID Status Reason Start Date Expiration Date V isits Requested Visits Authorized [id number] Authorized 06/20/2023 06/19/2024 1 1 Reason Comments Follow-up 6 month Specialty Diagnoses / Procedures Referred By Contac t Referred To Contact Cardiology Diagnoses ASHD (arteriosclerotic heart disease) Procedures Follow Up In Cardiology Crescencio Marin, [address] [place] [address] 2, [place] [phone] Crescencio Marin, [address], [place] [phone] Referral ID Status Reason Start Date Expiration Date V isits Requested Visits Authorized [id number] Authorized 06/20/2023 06/19/2024 1 1 Reason Comments Hypertension Reason Onset Date Comments Med Refill 04/22/2024 Reason Comments Follow-up 8 month visit for ca d. Specialty Diagnoses / Procedures Referred By Contac t Referred To Contact Cardiology Diagnoses ASHD (arteriosclerotic heart disease) Procedures Follow Up In Cardiology Crescencio Marin, [address], [place] [phone] Phone: tel: fax: Crescencio Marin, [address], [place] [phone] Phone: tel: fax: Referral ID Status Reason Start Date Expiration Date V isits Requested Visits Authorized [id number] Authorized 01/01/2024 12/31/2024 1 1 Reason Comments [...] June 05, 2023 End: June 05, 2023 Purchasing Officer Relationship Specialty Start Date End Date Frantz Conley MD [address] [place] [address] PCP - General Internal Medicine 08/16/21 Team [...] Active Zoila Castorena MD Attending Provider Active Purchasing Officer Relationship Specialty Start Date End Date Frantz Conley MD [address] [place] [address] PCP - General Internal Medicine 08/08/22 Frantz Conley MD [address] [place] [address] PCP - ACO Reach 08/16/22 Purchasing Officer Relationship Specialty Start Date End Date Frantz Conley MD [address] [place] [address] PCP - General Internal Medicine 08/08/22 Frantz Conley MD [address] [place] [address] PCP - ACO Reach 08/16/22 Purchasing Officer Relationship Specialty Start Date End Date Frantz Conley MD [address] [place] [address] PCP - General Internal Medicine 06/20/23 Team [...] Provide r Active Start: October 23, 2023 Purchasing Officer Relationship Specialty Start Date End Date Frantz Conley MD [address] [place] [address] PCP - General Internal Medicine 08/08/22 Frantz Conley MD [address] [place] [address] PCP - ACO Reach 08/16/22 Purchasing Officer Relationship Specialty Start Date End Date Frantz Conley MD [address] [place] [address] PCP - General Internal Medicine 08/08/22 Frantz Conley MD [address] [place] [address] PCP - ACO Reach 08/16/22 Purchasing Officer Relationship Specialty Start Date End Date Frantz Conley MD [address] [place] [address] PCP - General Internal Medicine 08/08/22 Frantz Conley MD [address] [place] [address] PCP - ACO Reach 08/16/22 Purchasing Officer Relationship Specialty Start Date End Date Frantz Conley MD [address] [facility] [address] [place] [address] PCP - General Internal Medicine 08/08/22 Frantz Conley MD [address] [facility] [address] [place] [address] PCP - ACO Reach 08/16/22 Team Status: Inactive Member Role Status Dates Frantz Conlye II MD Primary Care Provider Active Start: [...] May 21, 2024 End: May 21, 2024 Purchasing Officer Relationship Specialty Start Date End Date Frantz Conley MD [address] [facility] [address] [place] [address] PCP - General Internal Medicine 06/20/23 Purchasing Officer Relationship Specialty Start Date End Date Frantz Conley MD [address] [place] [address] PCP - General Internal Medicine 08/08/22 Frantz Conley MD [address] [facility] [address] [place] [address] PCP - ACO Reach 08/16/22 Purchasing Officer Relationship Specialty Start Date End Date Frantz Conley MD [address] [place] [address] PCP - General Internal Medicine 08/08/22 Frantz Conley MD [address] [place] [address] PCP - ACO Reach 08/16/22 Purchasing Officer Relationship Specialty Start Date End Date Frantz Conley MD [address] [place] [address] PCP - General Internal Medicine 08/08/22 Frantz Conley MD [address] [place] [address] PCP - ACO Reach 08/16/22 Team Status: [...] November 11, 2024 End: November 11, 2024 Purchasing Officer Relationship Specialty Start Date End Date Frantz Conley MD [address] [place] [address] PCP - General Internal Medicine 08/08/22 Frantz Conley MD [address] [place] [address] PCP - ACO Reach 08/16/22 Team Status: Active Member Role Status Dates Alex Marin DO Package Dye Stand Loader Active Team Status: Inactive Member Role Status [...] BE BASED ON THE PRIMARY CLINICAL RECORDS. [facility] [employer] [facility]. provides no warranty or guarantee of the accuracy or completeness of information in this document.
== END 2024-12-26 15:33 | disposition home or self-care (01) ==
LOC: ER 02:48 → MS 09:29
PROVIDERS: Admitting Provider Internal Medicine; Emergency Provider Emergency Medicine; PCP Internal Medicine; Visit Provider Internal Medicine
DX: D64.9 Anemia, unspecified (principal); R50.9 Fever, unspecified; R53.1 Weakness; Z63.4 Disappearance and death of family member; K76.6 Portal hypertension; K75.81 Nonalcoholic steatohepatitis (NASH); R53.83 Other fatigue; I25.10 Atherosclerotic heart disease of native coronary artery without angina pectoris; Z95.5 Presence of coronary angioplasty implant and graft; D69.6 Thrombocytopenia, unspecified; Z86.0100 Personal history of colon polyps, unspecified; K31.811 Angiodysplasia of stomach and duodenum with bleeding; E03.9 Hypothyroidism, unspecified; R31.29 Other microscopic hematuria; I95.9 Hypotension, unspecified; E78.5 Hyperlipidemia, unspecified; Z79.82 Long term (current) use of aspirin; Z79.02 Long term (current) use of antithrombotics/antiplatelets; Z79.899 Other long term (current) drug therapy; I49.9 Cardiac arrhythmia, unspecified; N30.90 Cystitis, unspecified without hematuria; K74.60 Unspecified cirrhosis of liver; I27.20 Pulmonary hypertension, unspecified
CPT/HCPCS: 36415; 71045; 80048; 80053; 81001; 83605; 84443; 84484; 85007; 85027; 87040; 87086; 87804; 87811; 93005; 93306; 96361; 96374; 99285; G0328; G0378; J0696; P9046

== ENCOUNTER 2025-01-04 11:01 | Outpatient (RCR) | payer MEDICARE, OTHER, SELFPAY ==
[2025-01-04 11:05] VITALS: BP 109/69; PULSE 52; TEMP 36.4; O2SAT 96
[2025-01-04] MEDS: FERRIC CARBOXYMALTOSE 750 MG in 0.9 % SODIUM CHLORIDE 250 ML 795 MG IV (11:10)
== END 2025-01-22 23:59 | disposition home or self-care (01) ==
LOC: HEMC 11:01
PROVIDERS: PCP Internal Medicine; Visit Provider Internal Medicine Hematology & Oncology
DX: I95.9 Hypotension, unspecified (principal); I25.10 Atherosclerotic heart disease of native coronary artery without angina pectoris; I49.9 Cardiac arrhythmia, unspecified; D64.9 Anemia, unspecified; D50.9 Iron deficiency anemia, unspecified; D50.0 Iron deficiency anemia secondary to blood loss (chronic); K90.9 Intestinal malabsorption, unspecified; D72.819 Decreased white blood cell count, unspecified; D69.6 Thrombocytopenia, unspecified
CPT/HCPCS: 93270; 96365; J1439

== ENCOUNTER 2025-01-04 14:29 | Outpatient (OUT) | payer MEDICARE, OTHER, SELFPAY ==
--- OUTSIDE RECORDS SUMMARY | 2024-09-29 10:30 | XMS_ITS ---
Author Organization The [facility] in [place] Address [address] [place] [address] Care Team Providers Care Police Stenographer Name Role Phone Jarvis CROFT, Frantz Primary Care Provider Unavailab Dior Bar Unavailable [phone] REASON FOR VISIT MD Encounters Encounter Location Date Provider Diagnosis [facility] Oncology [address] [place] [address] 09/29/2024 Dior Sevilla Plan Of Treatment Next Appt Details Provider Name:Dior Sevilla , 02/09/2025 11:00:00 AM, [address] [place], [address], Progress Notes * Pankaj PAYNEDOB:[birth year] (79 yo M)Acc No.[id number]:09/29/2024 UNLOCKED PROGRESS NOTE Progress Notes Patient: Pankaj ROMERO Provider: Rishabh Sevilla M.D. :1945 A ge:79 Y S ex:Male Date:09/29/2024 Address:[address], [place] Pcp:Frantz Conley MD Subjective: * Chief Complaints: * 1 . MD. * Medical History: Objective: * Vitals: Assessment: Plan: * Treatment: * * Electronic signature of Niki Sevilla MD, [id number] on 01/04/2025 at 02:33 PM EDT Sign off status: Pending Visit Status: Jennifer RUIZ (Voice) * Provider: Rishabh Sevilla M.D. Date: 0 09/29/2024 Generated for Krishna jones/Paul/Sandy on: 1 02:33 PM EDT
--- OUTSIDE RECORDS SUMMARY | 2024-09-29 11:00 | XMS_ITS ---
Author Organization The [facility] in [place] Address [address] [place] [address] Care Team Providers Care Rn Transitional Care Name Role Phone Jarvis CROFT, Frantz Primary Care Provider Unavailab Dior Bar Unavailable [phone] REASON FOR VISIT MD Encounters Encounter Location Date Provider Diagnosis [facility] Oncology [address] [place] [address] 09/29/2024 Dior Sevilla Plan Of Treatment Next Appt Details Provider Name:Dior Sevilla , 02/09/2025 11:00:00 AM, [address] [place], [address], Progress Notes * Pankaj PAYNEDOB:[birth year] (79 yo M)Acc No.[id number]:09/29/2024 UNLOCKED PROGRESS NOTE Progress Notes Patient: Pankaj ROMERO Provider: Rishabh Sevilla M.D. :1945 A ge:79 Y S ex:Male Date:09/29/2024 Address:[address] [place], [place] Pcp:Frantz Conley MD Subjective: * Chief Complaints: * 1 . MD. * Medical History: Objective: * Vitals: Assessment: Plan: * Treatment: * * Electronic signature of Niki Sevilla MD, [id number] on 01/04/2025 at 02:33 PM EDT Sign off status: Pending Visit Status: C ANC (Cancelled) * Provider: Rishabh Sevilla M.D. Date: 0 09/29/2024 Generated for Krishna jones/Paul/Sandy on: 1 02:33 PM EDT
--- OUTSIDE RECORDS SUMMARY | 2024-12-08 11:00 | XMS_ITS ---
Author Organization [facility] in [place] Address [address] [place] [address] Care Team Providers Care Design Agent Name Role Phone Jarvis CROFT, Frantz Primary Care Provider Unavailab Dior Bar Unavailable [phone] REASON FOR VISIT MD Encounters Encounter Location Date Provider Diagnosis [facility] [address] [place] [address] 12/08/2024 Dior Sevilla Plan Of Treatment Next Appt Details Provider Name:Dior Sevilla , 02/09/2025 11:00:00 AM, [address] [place], [address], Progress Notes * Pankaj PAYNEDOB:[birth year] (79 yo M)Acc No.[id number]:12/08/2024 UNLOCKED PROGRESS NOTE Progress Notes Patient: Pankaj ROMERO Provider: Rishabh Sevilla M.D. :1945 A ge:79 Y S ex:Male Date:12/08/2024 [address], [place] Pcp:Frantz Conley MD Subjective: * Chief Complaints: * 1 . MD. * Medical History: Objective: * Vitals: Assessment: Plan: * Treatment: * * Electronic signature of Niki Sevilla MD, [id number] on 01/04/2025 at 02:32 PM EDT Sign off status: Pending Visit Status: C ANC (Cancelled) * Provider: Rishabh Sevilla M.D. Date: 0 12/08/2024 Generated for Krishna jones/Paul/Sandy on: 1 02:32 PM EDT
--- OUTSIDE RECORDS SUMMARY | 2024-12-15 07:15 | XMS_ITS ---
Author Organization [facility] [place] Address [address] [place] [address] Care Team Providers Care Hydrometer Tester Name Role Phone Jarvis CROFT, Frantz Primary Care Provider Unavailab Dior Bar Unavailable [phone] REASON FOR VISIT MD Encounters Encounter Location Date Provider Diagnosis [facility] [address] [place] [address] 12/15/2024 Dior Sevilla Plan Of Treatment Next Appt Details Provider Name:Dior Sevilla , 02/09/2025 11:00:00 AM, [address] [place], [address], Progress Notes * Pankaj PAYNEDOB:[birth year] (79 yo M)Acc No.[id number]:12/15/2024 UNLOCKED PROGRESS NOTE Progress Notes Patient: Pankaj ROMERO Provider: Rishabh Sevilla M.D. :1945 A ge:79 Y S ex:Male Date:12/15/2024 Address[address], [id number] Pcp:Frantz Conley MD Subjective: * Chief Complaints: * 1 . MD. * Medical History: Objective: * Vitals: Assessment: Plan: * Treatment: * * Electronic signature of Niki Sevilla MD, [id number] on 01/04/2025 at 02:33 PM EDT Sign off status: Pending Visit Status: C ANC (Cancelled) * Provider: Rishabh Sevilla M.D. Date: 0 12/15/2024 Generated for Krishna jones/Paul/Sandy on: 1 02:33 PM EDT
--- OUTSIDE RECORDS SUMMARY | 2024-12-15 10:30 | XMS_ITS ---
Author Organization [facility] in [place] Address [address] [place] [address] Care Team Providers Care Installation Tech Name Role Phone Jarvis CROFT, Frantz Primary Care Provider Unavailab Dior aBr Unavailable [phone] REASON FOR VISIT MD Encounters Encounter Location Date Provider Diagnosis [facility] On[facility] [address] [place] [address] 12/15/2024 Dior Sevilla Plan Of Treatment Next Appt Details Provider Name:Dior Sevilla , 02/09/2025 11:00:00 AM, [address] [place], [address], Progress Notes * Pankaj PAYNEDOB:[birth year] (79 yo M)Acc No.[id number]:12/15/2024 UNLOCKED PROGRESS NOTE Progress Notes Patient: Pankaj ROMERO Provider: Rishabh Sevilla M.D. :1945 A ge:79 Y S ex:Male Date:12/15/2024 [address], [place] Pcp:Frantz Conley MD Subjective: * Chief Complaints: * 1 . MD. * Medical History: Objective: * Vitals: Assessment: Plan: * Treatment: * * Electronic signature of Niki Sevilla MD, [id number] on 01/04/2025 at 02:33 PM EDT Sign off status: Pending Visit Status: C ANC (Cancelled) * Provider: Rishabh Sevilla M.D. Date: 0 12/15/2024 Generated for Krishna jones/Paul/Sandy on: 1 02:33 PM EDT
--- OUTSIDE RECORDS SUMMARY | 2025-01-04 14:32 | XMS_ITS | Encounter Summary ---
Author Organization [facility] Address [address] [place] [address] Care Team Providers Care Library Sales Consultant Name Role Phone Frantz Conley MD Primary Care Provider [phone] Frantz Conley MD Unavailable [phone] Jazmin Toribio ORACLE BPM DEVELOPER Unavailable [phone] Dang Bosch LPN Unavailable Encounter Details Date Type Department Care Team (Late st Contact Info) Description 04/22/2024 Abstract [facility] [place] [facility] 112 [facility] 110 [place] [id number] Frantz Conley MD 112 [facility] 110 [place], [place] [id number] Social History Tobacco Use Types Packs/Day Years [...] or ex-partner? No 04/15/2023 Social Connection and Isolation Panel Answer Date Recorded In a typical week, [...] Recorded Patient Health Questionnaire-2 Score 0 10/21/2023 [facility] - Occupational [...] [facility] [address] [facility] [address] [place] [address] Shey Campbell, CERTIFIED MEDICAL CODING SPECIALIST [address] [facility] [address] [place] [address] documented as of this encounter Visit Diagnoses Not on filedocumented in this encounter Additional Health Concerns Assessment Noted Time PHQ-9 Depression Total Score: 0 10/21/19 11:00 AM EDT documented as of this encounter Care Teams Library Sales Consultant Relationship Specialty Start Date End Date Frantz Conley MD [address] [facility] [address] [place] [address] PCP - General Internal Medicine 08/08/22 Frantz Conley MD [address] [facility] [address] [place] [address] PCP - ACO Reach 08/16/22 Jazmin Toribio, ORACLE BPM DEVELOPER [address] [place] [address] Network Operations Lead Family Medicine 08/04/24 08/07/24 Dang Bosch LPN [address] [facility] [address] [place] [address] 08/07/24 08/07/24 documented as of this encounter
--- OUTSIDE RECORDS SUMMARY | 2025-01-04 14:32 | XMS_ITS | Encounter Summary ---
Author Organization [facility] Address [address] [place] [address] Care Team Providers Care Flexible Machining System Machinist Name Role Phone Frantz Conley MD Primary Care Provider [phone] Frantz Conley MD Unavailable [phone] Jazmin Toribio NUCLEAR CHEMISTRY TECHNICIAN Unavailable [phone] Dang Bosch LPN Unavailable Encounter Details Date Type Department Care Team (Late st Contact Info) Description 05/07/2024 Abstract [facility] [place] [facility] [address] [facility] 110 [place] [id number] Frantz Conley MD 112 [facility] 110 [place], [place] [id number] Social History Tobacco Use Types Packs/Day Years [...] How often do you attend chur or hoahaoism services? More than 4 times per year 04/15/2023 Do you belong to any clubs o r organizations such as adventist groups, unions, fraternal or athletic groups, or [...] Visit [facility] [place] [facility] [address] [facility] 110 [place] [address] Shey Campbell, LOADER MAGAZINE GRINDER [address] [facility] 110 [place] [address] documented as of this encounter Visit Diagnoses Not on filedocumented in this encounter Additional Health Concerns Assessment Noted Time PHQ-9 Depression Total Score: 0 10/21/19 11:00 AM EDT documented as of this encounter Care Teams Flexible Machining System Machinist Relationship Specialty Start Date End Date Frantz Conley MD [address] [facility] 110 [place] [address] PCP - General Internal Medicine 08/08/22 Frantz Conley MD [address] [facility] 110 [place] [address] PCP - ACO Reach 08/16/22 Jazmin Toribio, NUCLEAR CHEMISTRY TECHNICIAN [address] [place] [address] Inspector Handbag Frames Family Medicine 08/04/24 08/07/24 Dang Bosch LPN [address] [facility] 110 [place] [address] 08/07/24 08/07/24 documented as of this encounter
--- OUTSIDE RECORDS SUMMARY | 2025-01-04 14:32 | XMS_ITS | Encounter Summary ---
Author Organization [facility] Address [address] [place] [address] Phone Care Team Providers Care Journeyman Sheet Metal Worker Name Role Phone Frantz Conley MD Primary Care Provider [phone] Encounter Details Date Type Department Care Team (Late Contact Info) Description 12/28/[address] [address] Kina Mcduffie RN Social History [...] Department Care Team (Late Contact Info) Description 01/14/2025 1:30 PM EDT Office Visit [address] [phone] Maddie Barlow, ELECTRIC GAS APPLIANCES DEMONSTRATOR-BUSINESS SUPPORT [address] [facility] 2, [facility] [address] [place] [address] 09/14/2025 2:00 PM EDT Office Visit [facility] [address] [facility] [address] [place] [address] Crescencio Marin, [address] [facility] 2, [facility] [address] [place] [address] documented as of this encounter Visit Diagnoses Diagnosis ASHD (arteriosclerotic heart disease)- Primary Coronary atherosclerosis of unspecified type of vessel, fond du lac or graft documented in this encounter Additional Health Concerns Assessment Noted Time A fall risk assessment has been complete d for the patient 09/08/2024 2:55 PM EDT documented as of this encounter Care Teams Journeyman Sheet Metal Worker Relationship Specialty Start Date End Date Frantz Conley MD 112 [facility] 110 [place] [address] PCP - General Internal Medicine 06/20/23 documented as of this encounter
--- OUTSIDE RECORDS SUMMARY | 2025-01-04 14:32 | XMS_ITS | Encounter Summary ---
Author Organization [facility] Address [address] [place] [address] Care Team Providers Care Manager Credit Collections Name Role Phone Frantz Conley MD Primary Care Provider [phone] Frantz Conley MD Unavailable [phone] Encounter Details Date Type Department Care Team (Late st Contact Info) Description 12/28/2024 [facility] [address] [facility] 110 [place] [address] Frantz Conley MD 112 [facility] 110 [place] [address] Social History Tobacco Use Types [...] any clubs o r organizations such as mosque groups, unions, fraternal or athletic groups, or [...] Recorded Patient Health Questionnaire-2 Score 0 10/20/2024 [facility] - [...] Description 01/07/2025 11:30 AM EDT Office Visit [facility] [address] [facility] 110 [place] [address] Shey Campbell, COOK SPECIALTY [address] [facility] 110 [place] [address] documented as of this encounter Visit Diagnoses Not on filedocumented in this encounter Additional Health Concerns Assessment Noted Time PHQ-9 Depression Total Score: 0 10/21/19 25 2:00 PM EDT documented as of this encounter Care Teams Manager Credit Collections Relationship Specialty Start Date End Date Frantz Conley MD [address] [facility] 110 [place] [address] PCP - General Internal Medicine 08/08/22 Frantz Conley MD [address] [facility] [address] [place] [address] PCP - ACO Reach 08/16/22 documented as of this encounter
--- OUTSIDE RECORDS SUMMARY | 2025-01-04 14:32 | XMS_ITS | Encounter Summary ---
Author Organization [facility] Address [address] [place] [address] Care Team Providers Care Home Care Specialist Name Role Phone Frantz Conley MD Primary Care Provider [phone] Frantz Conley MD Unavailable [phone] Encounter Details Date Type Department Care [...] often do you attend chur ch or jehovah's witness services? More than 4 times per year [...] Recorded Patient Health Questionnaire-2 Score 0 10/20/2024 [facility] ional [facility] [...] Office Visit [facility] [address] [facility] [address] [place] [address] Shey Campbell, SEED BUYER [address] [facility] [address] [place] [address] documented as of this encounter Visit Diagnoses Not on filedocumented in this encounter Additional Health Concerns Assessment Noted Time PHQ-9 Depression Total Score: 0 10/21/19 25 2:00 PM EDT documented as of this encounter Care Teams Home Care Specialist Relationship Specialty Start Date End Date Frantz Conley MD [address] [facility] [address] [place] [address] PCP - General Internal Medicine 08/08/22 Frantz Conley MD [address] [facility] [address] [place] [address] PCP - ACO Reach 08/16/22 documented as of this encounter
--- OUTSIDE RECORDS SUMMARY | 2025-01-04 14:32 | XMS_ITS | Encounter Summary ---
Author Organization [facility] Address [address] [place] [address] Care Team Providers Care Sole Layer Hand Name Role Phone Frantz Conley MD Primary Care Provider [phone] Frantz Conley MD Unavailable [phone] Encounter Details Date Type Department Care Team (Late st Contact Info) Description 12/28/2024 Abstract [facility] [address] [place] [address] Dang Bosch LPN 112 [facility] 110 [place] [address] Social History Tobacco Use Types Packs/Day Years [...] often do you attend chur ch or yazidism services? More than 4 times [...] Questionnaire-2 Score 0 10/20/2024 [facility] - Occupational Stress Questionnaire Answer Date [...] Visit [facility] [place] [facility] [address] [facility] 110 [place] [address] Shey Campbell, SHELF DRIER OPERATOR [address] [facility] 110 [place] [address] documented as of this encounter Visit Diagnoses Not on filedocumented in this encounter Additional Health Concerns Assessment Noted Time PHQ-9 Depression Total Score: 0 10/21/19 25 2:00 PM EDT documented as of this encounter Care Teams Sole Layer Hand Relationship Specialty Start Date End Date Frantz Conley MD [address] [facility] [address] [place] [address] PCP - General Internal Medicine 08/08/22 Frantz Conley MD [address] [facility] 110 [place] [address] PCP - ACO Reach 08/16/22 documented as of this encounter
--- OUTSIDE RECORDS SUMMARY | 2025-01-04 14:32 | XMS_ITS | Encounter Summary ---
Author Organization [facility] Address [address] [place] [address] Care Team Providers Care Ring Stamper Name Role Phone Frantz Conley MD Primary Care Provider [phone] Frantz Conley MD Unavailable [phone] Jazmin Toribio HATCHERY LABORER Unavailable [phone] Dang Bosch LPN Unavailable Encounter Details Date Type Department Care Team (Late st Contact Info) Description 04/30/2024 Abstract [facility] [place] [facility] 112 [facility] 110 [place] [phone] Frantz Conley MD 112 [facility] 110 [place], [place] [id number] Social History Tobacco Use Types Packs/Day Years [...] How often do you attend chur or synagogue services? More than 4 times per year 04/15/2023 Do you belong to any clubs o r organizations such as christianity groups, unions, fraternal or athletic groups, or [...] Recorded Patient Health Questionnaire-2 Score 0 10/21/2023 [facility] ional Health - Occupational [...] [facility] 110 [place] [address] Shey Campbell, GUIDE DOG MOBILITY INSTRUCTOR [address] [facility] 110 [place] [address] documented as of this encounter Visit Diagnoses Not on filedocumented in this encounter Additional Health Concerns Assessment Noted Time PHQ-9 Depression Total Score: 0 10/21/19 11:00 AM EDT documented as of this encounter Care Teams Ring Stamper Relationship Specialty Start Date End Date Frantz Conley MD [address] [facility] 110 [place] [address] PCP - General Internal Medicine 08/08/22 Frantz Conley MD [address] [facility] 110 [place] [address] PCP - ACO Reach 08/16/22 Jazmin Toribio, HATCHERY LABORER [address] [place] [address] Card Decorator Family Medicine 08/04/24 08/07/24 Dang Bosch LPN [address] [facility] 110 [place] [address] 08/07/24 08/07/24 documented as of this encounter
--- OUTSIDE RECORDS SUMMARY | 2025-01-04 14:32 | XMS_ITS | Encounter Summary ---
Author Organization [facility] Address [address] [place] [address] Care Team Providers Care Radio Television Announcer Name Role Phone Frantz Conley MD Primary Care Provider [phone] Frantz Conley MD Unavailable [phone] Jazmin Toribio EXCHANGE CLERK Unavailable [phone] Dang Bosch LPN Unavailable Encounter Details Date Type Department Care Team (Late st Contact Info) Description 05/25/2024 Abstract [facility] [place] [facility] 112 [facility] 110 [place] [phone] Frantz Conley MD 112 [facility] 110 [place], [place] [id number] Social History Tobacco Use Types Packs/Day Years [...] How often do you attend chur or druze services? More than 4 times per year 04/15/2023 Do you belong to any clubs o r organizations such as anglican groups, unions, fraternal or athletic groups, or [...] Recorded Patient Health Questionnaire-2 Score 0 10/21/2023 [facility] Occup[facility] ional Health - [...] [address] [facility] 110 [place] [address] Shey Campbell, PACKAGE WINDER [address] [facility] 110 [place] [address] documented as of this encounter Visit Diagnoses Not on filedocumented in this encounter Additional Health Concerns Assessment Noted Time PHQ-9 Depression Total Score: 0 10/21/19 11:00 AM EDT documented as of this encounter Care Teams Radio Television Announcer Relationship Specialty Start Date End Date Frantz Conley MD [address] [facility] 110 [place] [address] PCP - General Internal Medicine 08/08/22 Frantz Conley MD [address] [facility] 110 [place] [address] PCP - ACO Reach 08/16/22 Jazmin Toribio, EXCHANGE CLERK [address] [place] [address] [employer]ms Consultant Family Medicine 08/04/24 08/07/24 Dang Bosch LPN [address] [facility] 110 [place] [address] 08/07/24 08/07/24 documented as of this encounter
--- OUTSIDE RECORDS SUMMARY | 2025-01-04 14:32 | XMS_ITS | Encounter Summary ---
Author Organization [facility] Address [address] [place] [address] Care Team Providers Care Transferrer Name Role Phone Frantz Conley MD Primary Care Provider [phone] Frantz Conley MD Unavailable [phone] Encounter Details Date Type Department Care Team (Late st Contact Info) Description 12/28/2024 Patient Outreach [facility] [address] [place] [address] Dang Bosch LPN 112 [facility] 110 [place] [address] Social History Tobacco Use Types Packs/Day Years [...] any clubs o r organizations such as gnosticist groups, unions, fraternal or athletic groups, or [...] Recorded Patient Health Questionnaire-2 Score 0 10/20/2024 [facility] - Occupational Stress Questionnaire Answer Date Recorded [...] place to sleep or slept in a halfway (including now)? No 04/15/2023 Sex and Gender [...] Pt states he plans on calling his Multifocal Button Grinder to see if thisis necessary or not. Pt declines 30 day monitoring. States he does not feel he needs this. Flowsheet Row Patient Outreach from 12/28/2024 in [facility] with Dang Bosch LPN Hospital Information ED, Hospital or Long Term Facility Discharge? Hospital Patient has been contacted within two business days of discharge Yes Diagnosis (1) Hypotension: (2) Coronary artery disease: (3) H/O heart artery stent: (4) Hyperlipidemia: (5) Steatohepatitis: (6) Portal hypertension: (7) Thrombocytopenia: (8) GAVE (gastric antral vascular ectasia): (9) Anemia: (10) Hypothyroid Discharge Date 12/26/24 Discharged To: Home Setting Discharge Hospital [facility] Engagement Call Start Time 1140 Admission Date [...] AM EDT Office Visit [facility] 112 [facility] 110 [place] [address] Shey Campbell NP 112 [facility] 110 [place] [address] documented as of this encounter Visit Diagnoses Diagnosis Hypotension, unspecified hypotension type Coronary artery disease involving grindstone coronary artery of grindstone heart without angina pectoris Hyperlipidemia, unspecified hyperlipidemia type Steatohepatitis Other chronic nonalcoholic liver disease Portal hypertension (HCC) Portal hypertension Thrombocytopenia Unspecified thrombocytopenia GAVE (gastric antral vascular ectasia) Anemia, unspecified type documented in this encounter Additional Health Concerns Assessment Noted Time PHQ-9 Depression Total Score: 0 10/21/19 25 2:00 PM EDT documented as of this encounter Care Teams Transferrer Relationship Specialty Start Date End Date Frantz Conley MD 112 [facility] 110 [place] [address] PCP - General Internal Medicine 08/08/22 Frantz Conley MD 112 [facility] 110 [place] [address] PCP - ACO Reach 08/16/22 documented as of this encounter
--- OUTSIDE RECORDS SUMMARY | 2025-01-04 14:33 | XMS_ITS | Patient Health Record ---
Author Organization [facility] [place] Address [address] [place] [address] Care Team Providers Care Barratte Operator Name Role Phone Frantz Conley MD Primary Care Provider Unavailab sravan RoelDior barnett Unavailable [phone] Results Component Value Reference Range Notes CBC AUTO DIFF (Not yet revie wed by provider) Interpretation: Performing Lab: Notes/Report: [facility] , White Blood Count 4.9 4.0-11.0 10 [...] Performing Lab: see note ML - [facility] LB FERRITIN (Not yet reviewed b y provider) Interpretation: Performing Lab: Notes/Report: [facility] , Ferritin 32.0 26.0-388.0 ng/mL Performing Lab: see note ML - [facility] LB IRON AND TIBC (Not yet revie wed by provider) Interpretation: Performing Lab: Notes/Report: [facility] , Iron 125.0 65.0-175.0 ug/dL Total Iron Binding Capacity 409.0 250.0-450.0 u g/dL Percent Iron Saturation 30.6 Performing Lab: see note ML - [facility] LB PROF 14(COMP METB) (Not yet reviewed by provider) Interpretation: Performing Lab: Notes/Report: [facility] , Sodium 141 136-145 mmol/L Potassium 4.3 3.5-5.1 mmol/L Chloride 109 98-107 mmol/L Carbon Dioxide 26.0 21.0-32.0 mmol/L Anion Gap 10.3 Glucose 106 74-106 mg/dL Blood Urea Nitrogen 25.0 7.0-18.0 mg/dL Creatinine 1.08 0.70-1.30 mg/dL Estimated GFR ( Oumou >60 >=60 mL/mi n/1.73m 2 Estimated GFR (Non- Rosie >60 >=60 mL/mi n/1.73m 2 BUN Creatinine Ratio 23.1 Calcium 8.5 8.5-10.1 mg/dL Bilirubin Total 0.7 0.2-1.0 mg/dL Aspartate Amino Transferase 56 15-37 U/L Alanine Aminotransferase 55 16-63 U/L Alkaline Phosphatase 135 46-116 U/L Total Protein 6.7 6.4-8.2 g/dL Albumin Level 3.0 3.4-5.0 g/dL Globulin 3.7 Albumin Globulin Ratio 0.8 Performing Lab: see note ML - [facility] LB VITAMIN D 25 [place] (Not yet rev iewed by provider) Interpretation: Performing Lab: Notes/Report: [facility] , Vitamin D 41.7 <20 ng/mL Vit D deficient 20-<30 ng/mL Vit D insufficient 30-100 ng/mL Vit D sufficient >100 ng/mL Potential Toxicity Performing Lab: see note ML - [facility] LB Manual Differential (Not yet reviewed by provider) Interpretation: Performing Lab: Notes/Report: [facility] , Segmented Neutrophils % Manual 70.0 43.0-75.0 [...] 3/uL Performing Lab: see note ML - [facility] LB Vitamin B12 (Not yet reviewe d by provider) Interpretation: Performing Lab: Notes/Report: [facility] , Vitamin B12 996 695-7487 pg/mL Performed at: [facility] [address] [id number] Plumber Assistant: Charlie Klein PhD, Phone: [phone] Performing Lab: see note - [facility] LB CBC AUTO DIFF (Not yet revie wed by provider) Interpretation: Performing Lab: Notes/Report: [facility] , White Blood Count 3.3 4.0-11.0 10 [...] 10.6 9.5-13.5 fL Performing Lab: see note - [facility] LB IRON AND TIBC (Not yet revie wed by provider) Interpretation: Performing Lab: Notes/Report: [facility] , Iron 51.0 65.0-175.0 ug/dL Total Iron Binding Capacity 361.0 250.0-450.0 u g/dL Percent Iron Saturation 14.1 Performing Lab: see note - [facility] LB PROF 14(COMP METB) (Not yet reviewed by provider) Interpretation: Performing Lab: Notes/Report: [facility] , Sodium 145 136-145 mmol/L Potassium 4.3 3.5-5.1 mmol/L Chloride 110 98-107 mmol/L Carbon Dioxide 26.4 21.0-32.0 mmol/L Anion Gap 12.9 Glucose 112 74-106 mg/dL Blood Urea Nitrogen 17.0 7.0-18.0 mg/dL Creatinine 0.83 0.70-1.30 mg/dL Estimated GFR ( Oumou >60 >=60 mL/mi n/1.73m 2 Estimated GFR (Non- Rosie >60 >=60 mL/mi n/1.73m 2 BUN Creatinine Ratio 20.5 Calcium 8.9 8.5-10.1 mg/dL Bilirubin Total 0.7 0.2-1.0 mg/dL Aspartate Amino Transferase 53 15-37 U/L Alanine Aminotransferase 50 16-63 U/L Alkaline Phosphatase 115 46-116 U/L Total Protein 6.4 6.4-8.2 g/dL Albumin Level 2.9 3.4-5.0 g/dL Globulin 3.5 Albumin Globulin Ratio 0.8 Performing Lab: see note - [facility] LB Manual Differential (Not yet reviewed by provider) Interpretation: Performing Lab: Notes/Report: [facility] , Segmented Neutrophils % Manual 66.0 43.0-75.0 [...] Manual 0.03 Performing Lab: see note - [facility] LB Vitamin B12 (Not yet reviewe d by provider) Interpretation: Performing Lab: Notes/Report: [facility] , Vitamin B12 9171 709-8320 pg/mL Performed at: - [facility] [address] [id number] Plumber Assistant: Charlie Klein PhD, Phone: [phone] Performing Lab: see note - [facility] LB CBC AUTO DIFF (Not yet revie wed by provider) Interpretation: Performing Lab: Notes/Report: [facility] , White Blood Count 3.1 4.0-11.0 10 3/uL Red Blood Count 3.43 4.70-6.10 10 6/uL Hemoglobin 10.8 14.0-18.0 g/dL Hematocrit 33.2 42.0-54.0 % Mean Corpuscular Volume 96.8 80.0-94.0 fL Mean Corpuscular Hemoglobin 31.5 25.9-34.0 pg Mean Corpuscular HGB Conc 32.5 29.9-35.2 g/dL Red Cell Distribution Width 14.3 11.0-15.0 % Platelet Count 83 150-450 10 3/uL Mean Platelet Volume 11.0 9.5-13.5 fL Neutrophils Percent Auto 69.2 43.0-75.0 % Lymphocytes Percent Auto 19.4 20.5-60.0 % Monocytes Percent Auto 7.3 1.7-12.0 % Eosinophils Percent Auto 3.2 0.9-7.0 % Basophils Percent Auto 0.6 0.2-2.0 % Immature Granulocytes Pct Auto 0.3 0.0-0.5 % Neutrophils Absolute Auto 2.2 1.4-6.5 10 3/uL Lymphocytes Absolute Auto 0.6 1.2-3.8 10 3/uL Monocytes Absolute Auto 0.2 0.3-0.8 10 3/uL Eosinophils Absolute Auto 0.1 0.0-0.7 10 3/uL Basophils Absolute Auto 0.0 0.0-0.1 10 3/uL Immature Granulocytes Abs Auto 0.01 0.00-0.03 10 3/uL Performing Lab: see note - [facility] LB FERRITIN (Not yet reviewed b y provider) Interpretation: Performing Lab: Notes/Report: [facility] , Ferritin 29.0 26.0-388.0 ng/mL Performing Lab: see note - [facility] LB IRON AND TIBC (Not yet revie wed by provider) Interpretation: Performing Lab: Notes/Report: [facility] , Iron 41.0 65.0-175.0 ug/dL Total Iron Binding Capacity 360.0 250.0-450.0 u g/dL Percent Iron Saturation 11.4 Performing Lab: see note ML - [facility] LB PROF 14(COMP METB) (Not yet reviewed by provider) Interpretation: Performing Lab: Notes/Report: [facility] , Sodium 144 136-145 mmol/L Potassium 4.3 3.5-5.1 mmol/L Chloride 110 98-107 mmol/L Carbon Dioxide 27.9 21.0-32.0 mmol/L Anion Gap 10.4 Glucose 144 74-106 mg/dL Blood Urea Nitrogen 21.0 7.0-18.0 mg/dL Creatinine 0.73 0.70-1.30 mg/dL Estimated GFR ( Oumou >60 >=60 mL/mi n/1.73m 2 Estimated GFR (Non- Rosie >60 >=60 mL/mi n/1.73m 2 BUN Creatinine Ratio 28.8 Calcium 8.6 8.5-10.1 mg/dL Bilirubin Total 0.6 0.2-1.0 mg/dL Aspartate Amino Transferase 56 15-37 U/L Alanine Aminotransferase 55 16-63 U/L Alkaline Phosphatase 138 46-116 U/L Total Protein 6.6 6.4-8.2 g/dL Albumin Level 2.8 3.4-5.0 g/dL Globulin 3.8 Albumin Globulin Ratio 0.7 Performing Lab: see note ML - [facility] LB FERRITIN (Not yet reviewed b y provider) Interpretation: Performing Lab: Notes/Report: [facility] , Ferritin 42.0 26.0-388.0 ng/mL Performing Lab: see note ML - [facility] LB Reason For Referral No Information Problems Problem Type SNOMED Code ICD Code Onset Dates Problem Status W/U Status Risk Notes Problem Gastroesophageal reflux disease (367716081) GERD (gastroesophageal reflux disease) (K21.9) Active confirmed Problem Anemia (600722720) Anemia (D64.9) Active confir med Problem Thrombocytopenia (862013379) Thrombocytopenia (D69.6) Active confirmed Problem Leukopenia (07583237) Leukopenia (D72.819) Active confirmed 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 Encounters Encounter Location Date Provider Diagnosis [facility] [address] [place] [address] 09/29/2024 Dior Sevilla [facility] [address] [place] [address] 04/21/2024 Dior Sevilla Plan Of Treatment Pending Test Test Name Order Date CBC AUTO DIFF 06/28/2023 CBC AUTO DIFF 12/05/2023 CBC AUTO DIFF 04/21/2024 CBC AUTO DIFF 09/23/2024 CBC AUTO DIFF 12/07/2024 FERRITIN 12/07/2024 FERRITIN 09/23/2024 FERRITIN 04/21/2024 FERRITIN 12/05/2023 FERRITIN 06/28/2023 IRON AND TIBC 06/28/2023 IRON AND TIBC 12/05/2023 IRON AND TIBC 04/21/2024 IRON AND TIBC 09/23/2024 IRON AND TIBC 12/07/2024 PROF 14(COMP METB) 12/07/2024 PROF 14(COMP METB) 04/21/2024 PROF 14(COMP METB) 09/23/2024 VITAMIN D 25 [place] 04/21/2024 Manual Differential 04/21/2024 Manual Differential 12/05/2023 Manual Differential 09/23/2024 Vitamin B12 09/23/2024 Vitamin B12 04/21/2024 t-Transglutaminase (tTG) IgA 10/17/2023 Next Appt Details Provider Name:Dior Roel , 02/09/2025 11:00:00 AM, [address] [place], [address], Insurance Providers Payer Name Payer Address Payer Phone Subscriber Number Group Number Insured Name Patient Relationship to Insured Coverage Start Date Coverage End Date [place] [address] [place] [address] [id number] Octavio Pankaj betancourt Self - patient is the insured S [employer] [address] [place] [address] [id number] Octavio Pankaj betancourt Self - patient is the insured
--- OUTSIDE RECORDS SUMMARY | 2025-01-04 14:33 | XMS_ITS | Encounter Summary ---
Author Organization [facility] Address [address] [place] [address] Care Team Providers Care Panel Machine Operator Name Role Phone Frantz Conley MD Primary Care Provider [phone] Frantz Conley MD Unavailable Encounter Details Date Type Department Care Team (Late st Contact Info) Description 10/05/2024 [facility] [address] [facility] 110 [place] [address] Frantz Conley MD 112 [facility] 110 [place] [address] Social History Tobacco Use Types [...] often do you attend chur ch or hindu services? More than 4 times per year 04/15/2023 Do you belong to any clubs o r organizations such as yarsanism groups, unions, fraternal or athletic groups, or [...] Recorded Patient Health Questionnaire-2 Score 0 10/05/2024 [facility] - Occupational [...] Visit [facility] [place] [facility] [address] [place] [address] [place] [address] Shey Campbell NP [address] [place] [address] [place] [address] documented as of this encounter Visit Diagnoses Not on filedocumented in this encounter Additional Health Concerns Assessment Noted Time PHQ-9 Depression Total Score: 0 10/21/19 24 11:00 AM EDT documented as of this encounter Care Teams Panel Machine Operator Relationship Specialty Start Date End Date Frantz Conley MD 112 [facility] [address] [place] [address] PCP - General Internal Medicine 08/08/22 Frantz Conley MD [address] [place] [facility] [address] [place] [address] PCP - ACO Reach 08/16/22 documented as of this encounter
--- OUTSIDE RECORDS SUMMARY | 2025-01-04 14:33 | XMS_ITS | Encounter Summary ---
Author Organization [facility] Address [address] [place] [address] Care Team Providers Care Plating Foreman Name Role Phone Frantz Conley MD Primary Care Provider [phone] Frantz Conley MD Unavailable [phone] Encounter Details Date Type Department Care Team (Late st Contact Info) Description 10/21/2024 Abstract [facility] [address] [facility] 110 [place] [address] Frantz Conley MD 112 [facility] 110 [place] [address] Social History Tobacco Use Types [...] often do you attend chur ch or cheondoism services? More than 4 times per year 04/15/2023 Do you belong to any clubs o r organizations such as rastafari groups, unions, fraternal or athletic groups, or [...] Recorded Patient Health Questionnaire-2 Score 0 10/20/2024 [facility] - Occupational [...] Office Visit [facility] [address] [facility] 110 [place] [address] Shey Campbell, BULB GRADER [address] [facility] [address] [place] [address] documented as of this encounter Visit Diagnoses Not on filedocumented in this encounter Additional Health Concerns Assessment Noted Time PHQ-9 Depression Total Score: 0 10/21/19 25 2:00 PM EDT documented as of this encounter Care Teams Plating Foreman Relationship Specialty Start Date End Date Frantz Conley MD [address] [facility] [address] [place] [address] PCP - General Internal Medicine 08/08/22 Frantz Conley MD [address] [place] [address] [place] [address] PCP - ACO Reach 08/16/22 documented as of this encounter
--- OUTSIDE RECORDS SUMMARY | 2025-01-04 14:33 | XMS_ITS | Encounter Summary ---
Author Organization [facility] Address [address] [place] [address] Care Team Providers Care Assistant Professor Of Business Name Role Phone Frantz Conley MD Primary Care Provider [phone] Frantz Conley MD Unavailable [phone] Jazmin Toribio TAX COLLECTOR Unavailable [phone] Dang Bosch LPN Unavailable Encounter Details Date Type Department Care Team (Late st Contact Info) Description 01/01/2024 Abstract [facility] [place] [facility] 112 [facility] 110 [place] [id number] Frantz Conley MD 112 [facility] 110 [place], [place] [id number] Social History Tobacco Use Types Packs/Day Years [...] How often do you attend chur or confucianism services? More than 4 times per year [...] Recorded Patient Health Questionnaire-2 Score 0 10/21/2023 [facility] - Occupational Stress [...] Visit [facility] [place] [facility] [address] [facility] [address] [place] [address] Shey Campbell, CHIPPER FEEDER [address] [facility] [address] [place] [address] documented as of this encounter Visit Diagnoses Not on filedocumented in this encounter Additional Health Concerns Assessment Noted Time PHQ-9 Depression Total Score: 0 10/21/19 11:00 AM EDT documented as of this encounter Care Teams Assistant Professor Of Business Relationship Specialty Start Date End Date Frantz Conley MD [address] [facility] [address] [place] [address] PCP - General Internal Medicine 08/08/22 Frantz Conley MD [address] [facility] 110 [place] [address] PCP - ACO Reach 08/16/22 Jazmin Toribio, TAX COLLECTOR [address] [place] [address] Journalism Instructor Family Medicine 08/04/24 08/07/24 Dang Bosch LPN [address] [facility] [address] [place] [address] 08/07/24 08/07/24 documented as of this encounter
--- OUTSIDE RECORDS SUMMARY | 2025-01-04 14:33 | XMS_ITS | Encounter Summary ---
Author Organization [facility] Address [address] [place] [address] Care Team Providers Care Airport Control Operator Name Role Phone Frantz Conley MD Primary Care Provider [phone] Reason for Visit * Reason Comments Med Refill Encounter Details Date Type Department Care Team (Late st Contact Info) Description 04/08/2022 Refill [facility] Cardiology [address] [place] [phone] Veronika Lanier CNP [address] [facility] [place] [address] Coronary artery disease, unspecified vessel or lesion type, unspecified whether angina present, unspecified whether eastern shoshone or transplanted heart Social History Tobacco Use [...] type, unspecified whether angina present, unspecified whether eastern shoshone or transplanted heart documented in this encounter Care Teams Airport Control Operator Relationship Specialty Start Date End Date Frantz Conley MD PCP - General 09/17/22 documented as of this encounter
--- OUTSIDE RECORDS SUMMARY | 2025-01-04 14:33 | XMS_ITS | Clinical Summary ---
Author Organization [facility] Address [address] [place] [address] Care Team Providers Care Assistant Professor Of Geography Name Role Phone Frantz Conley MD Primary Care Provider [phone] Medications aspirin 81 mg chewable tablet Chew 81 mg. Ac tive fish oil concentrate ([place]-3) 120-180 mg capsule Take 1,000 mg by [...] type, unspecified whether angina present, unspecified whether pechanga or transplanted heart TAKE 1 TABLET DAILY 90 tablet 3 07/04/19 24 Active Active Problems Problem Noted Date Diagnosed Date Coronary artery disease invo lving pechanga coronary artery of pechanga heart without angina pectoris 09/17/2022 Overview (09/17/2022): [...] Payer (Ef fective 2011-Present) Name:Pankaj Matthews Member ID:[id number] Relation to Subscriber:Self Name:Pankaj Matthews Subscriber ID:[id number] Payer ID:[id number] Group ID:Not on file Type:Medicare Address: [facility] [address] Care Teams Assistant Professor Of Geography Relationship Specialty Start Date End Date Frantz Conley MD PCP - General 09/17/22
--- OUTSIDE RECORDS SUMMARY | 2025-01-04 14:33 | XMS_ITS | Clinical Summary ---
Author Organization [facility] Address [address] [place] [address] Care Team Providers Care Poultry And Fish Butcher Name Role Phone Frantz Conley MD Primary Care Provider Frantz Conley MD Unavailable [phone] Allergies No known active allergies Medications Multiple Vitamins-Minerals (ONE DAILY ADULTS 50+ PO) Take 1 tablet by mouth 1 (one) time each day. Active [place]-3 Fatty Acids (Fish Oil) 1000 MG capsule [...] insomnia 08/13/2022 Coronary artery disease invo lving [place] coronary artery of [place] heart without angina pectoris 08/13/2022 Diverticulosis of [...] Department Care Team Description 12/28/2024 [facility] 110 [place] [address] Frantz Conley MD 12/28/[address] [facility] [address] [place] [address] Dang Bosch LPN 12/28/[address] [facility] [address] [place] [address] Dang Bosch LPN 12/25/2024 Clinisync Result Encounter NOMS External Department Unsolicited Provider, Generic External Data 12/21/2024 Travel 12/07/2024 Clinisync Result Encounter NOMS External Department Unsolicited Provider, Generic External Data 11/11/2024 [facility] [address] [facility] 110 [place] [address] Frantz Conley MD 10/30/2024 Refill [facility] [address] [facility] 110 [place] [address] Frantz Conley MD Mixed hyperlipidemia 10/30/2024 Telephone [facility] [place] [address] [place] [address] 112 [facility] 100 [place] [address] Frantz Conley MD 10/21/[address] [place] [facility] 112 [facility] 110 [place] [address] Frantz Conley MD 10/20/2024 2:30 PM EDT Office Visit [facility] [place] [facility] 112 [facility] 110 [place] [address] Rosanna Bautista PA Medicare annual wellness visit, subsequent (Primary Dx); ACP (advance care planning); Chronic insomnia; Other chronic pain; Benign essential HTN ; Benign hypertensive heart and CKD, 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), w CHF (HCC); Coronary artery disease involving [place] coronary artery of [place] heart without angina pectoris ; Dilatation of [...] diastolic dysfunction 10/20/[address] Bamboo [address] [place] [facility] 112 [facility] 110 [place] [address] Rosanna Bautista PA 10/20/2024 Travel 10/16/[address] [place] [facility] 112 [facility] 110 [place] [address] Frantz Conley MD Acquired hypothyroidism 10/07/[address] [place] [facility] 112 [facility] 110 [place] [address] Frantz Conley MD 10/05/2024 11:00 AM EDT [facility] [address] [place] [address] Frantz Conley MD Sinus bradycardia (Primary Dx); PVCs (premature ventricular contractions); Coronary artery disease involving [place] coronary artery of [place] heart without angina pectoris ; 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hepatitis (SCANLON) (HCC) 10/05/2024 Abstract [facility] [place] [place] [address] Frantz Conley MD 10/05/2024 Travel 10/05/2024 [facility] [address] [place] [address] Frantz Conley MD from Last 3 Months [...] How often do you attend chur or religion services? More than 4 times per year [...] Recorded Patient Health Questionnaire-2 Score 0 10/20/2024 [facility] of Occupat ional Health - Occupational Stress [...] [facility] [place] [facility] [address] [facility] 110 [place] [address] Shey Campbell, BOREMATIC MACHINE OPERATOR [address] [place] [address] Health Maintenance Due Date Last Done Comments [...] 12/25/2024 3:12 AM EDT URINE CULTURE - [facility] Routine 12/25/2024 2:15 AM EDT BLOOD CULTURE 1 Routine 12/25/2024 12:40 AM EDT [facility] FERRITIN Routine 12/07/2024 10:00 AM EDT [facility]ON [facility] TIBC Routine 12/07/2024 1 0:00 AM EDT [facility] CMP (CMP) (FOR REMOTE [facility] USE) Routine 12/07/2024 10:00 AM EDT ALL CBC WITH AUTO DIFF Routine 12/07/2024 10:00 AM EDT COLONOSCOPY Routine 10/23/2023 from Last 3 Months or Most Recently Relevant to Health Maintenance Results * BLOOD CULTURE 2 (12/25/2024 3:12 AM EDT) BLOOD CULTURE 2 Blood Culture 2 NG5D NO GROWTH AT 5 DAYS.^NO GROWTH AT 5 DAYS. [facility] 12/25/2024 3:12 AM EDT 12/25/2024 3:18 AM EDT Narrative [facility] - 12/30/2024 2:58 PM EDT us Generic External Data Provider LAB BLOOD ORDERAB LES Final Result [facility] * [facility]INE [facility]ULTURE - [facility] (12/25/2024 2:15 AM EDT) [facility] URINE CULTURE - [facility] Urine Culture - [facility] No Growth 2 Days [facility] URINE [facility]ULTURE - [facility] URINE [facility]ULTURE - [facility] Testing performed at [facility] URINE CULTURE - [facility] [address] [place] [address] [facility] 12/25/2024 2:15 AM EDT 12/25/2024 1:40 PM EDT Narrative [facility] - 12/28/2024 11:19 AM EDT us Generic External Data Provider LAB BLOOD ORDERAB LES Final Result Performing Organization Address City/[facility]/ZIP Co de Phone Number [facility] * BLOOD CULTURE 1 (12/25/2024 12:40 AM EDT) Pathologist [facility] BLOOD CULTURE 1 Blood Culture 1 NG5D NO GROWTH AT 5 DAYS.^NO GROWTH AT 5 DAYS. [facility] 12/25/2024 12:4 0 AM EDT 12/25/2024 3:02 AM EDT Narrative [facility] - 12/30/2024 2:58 PM EDT us Generic External Data Provider LAB BLOOD ORDERAB LES Final Result [facility] * (ABNORMAL) [facility] (12/07/2024 10:00 AM EDT) [facility] IRON 41.0(L) 65.0 - 175.0 ug/dL [facility] TOTAL IRON BINDING CAPACITY 360.0 250.0 - 450.0 ug/dL [facility] PERCENT IRON SATURATION 11.4 % [facility] 12/07/2024 10:0 0 AM EDT 12/07/2024 10:13 AM EDT Narrative [facility] - 12/07/2024 11:21 AM EDT Generic External Data Provider [facility]IN[facility] F inal Result [facility] * [facility] FERRITIN (12/07/2024 10:00 AM EDT) FERRITIN 29.0 26.0 - 388.0 ng/mL [facility] 12/07/2024 10:0 0 AM EDT 12/07/2024 10:13 AM EDT Narrative [facility] - 12/07/2024 1:10 PM EDT Generic External Data Provider [facility]IN[facility] F inal Result [facility] * (ABNORMAL) [facility] CMP (CMP) (FOR REMOTE [facility] USE) (12/07/2024 10:00 AM EDT) SODIUM 144 136 - 145 mmol/L [facility] POTASSIUM 4.3 3.5 - 5.1 mmol/L [facility] CHLORIDE 110(H) 98 - 107 mmol/L [facility] CARBON DIOXIDE 27.9 21.0 - 32.0 mmol/L [facility] ANION GAP 10.4 [facility] GLUCOSE 144(H) 74 - 106 mg/dL [facility] BLOOD UREA NITROGEN 21.0(H) 7.0 - 18.0 mg/dL [facility] CREATININE 0.73 0.70 - 1.30 mg/dL [facility] TB[facility] EGFR-AF FIJIAN >60 >=60 mL/min/1. 73m 2 [facility] TBH EGFR-NON AF FIJIAN >60 >=60 mL/min/1. 73m 2 [facility] BUN [...] 10:13 AM EDT Narrative [facility] - 12/07/2024 10:59 AM EDT us Generic External Data Provider [facility] F inal Result Performing Organization Address City/State/[facility] Co de Phone Number [facility] * (ABNORMAL) ALL CBC WITH AUTO DIFF (12/07/2024 10:00 AM EDT) TB WBC 3.1(L) 4.0 - 11.0 10 3/uL [facility] TB RBC 3.43(L) 4.70 - 6.10 10 6/uL TB[facility] TBH HGB 10.8(L) 14.0 - 18.0 g/dL [facility] TB HCT 33.2(L) 42.0 - 54.0 % TB[facility] TB MCV 96.8(H) 80.0 - 94.0 fL TB[facility] TB MCH 31.5 25.9 - 34.0 pg TBH TB MCHC 32.5 29.9 - 35.2 g/dL TB[facility] [...] Data Provider CLINISYNC F inal Result [facility] * (ABNORMAL) Hm Colonoscopy (10/23/2023) Anatomical Region Laterality Modality Other 10/23/2023 Narrative 10/25/2023 9:28 AM EDT Polypectomy Rosanna [facility] MAINTENANCE Final Resul t from Last 3 Months or Most Recently Relevant to Health Maintenance Insurance MEDICARE Care Teams Poultry And Fish Butcher Relationship Specialty Start Date End Date Frantz Conley MD [address] [facility] 110 [place] [address] PCP - General Internal Medicine 08/08/22 Frantz Conley MD [address] [facility] 110 [place] [address] PCP - ACO Reach 08/16/22
--- OUTSIDE RECORDS SUMMARY | 2025-01-04 14:33 | XMS_ITS | Encounter Summary ---
Author Organization [facility] Address [address] [place] [place] [address] Care Team Providers Care Psychiatric Specialist Name Role Phone Frantz Conley MD Primary Care Provider [phone] Reason for Visit * Reason Comments Med Refill Encounter Details Date Type Department Care Team (Late st Contact Info) Description 04/05/2023 Refill [facility] Cardiology [address] [place] [address] Karl Menon MD [address] [facility] [place] [address] Coronary artery disease, unspecified vessel or lesion type, unspecified whether angina present, unspecified whether [place]key or transplanted heart Social History Tobacco Use [...] type, unspecified whether angina present, unspecified whether [place] or transplanted heart documented in this encounter Care Teams Psychiatric Specialist Relationship Specialty Start Date End Date Frantz Conley MD PCP - General 09/17/22 documented as of this encounter
--- OUTSIDE RECORDS SUMMARY | 2025-01-04 14:33 | XMS_ITS | Encounter Summary ---
Author Organization [facility] Address [address] [place] [address] Care Team Providers Care Painter Helper Name Role Phone Frantz Conley MD Primary Care Provider [phone] Frantz Conley MD Unavailable [phone] Encounter Details Date Type Department Care [...] place to sleep or slept in a custodial (including now)? No 04/15/2023 Sex and Gender [...] Office Visit [facility] [address] [place] [address] Shey Campbell, SHIP FITTER [address] [place] [address] documented as of this encounter Procedures Procedure Name Priority Date/Time Associated Diagnosis Comments BLOOD CULTURE 2 Routine 12/25/2024 3:12 AM EDT [facility] - [facility] Routine 12/25/2024 2:15 AM EDT BLOOD CULTURE 1 Routine 12/25/2024 12:40 AM EDT documented in this encounter Results * BLOOD CULTURE 2 (12/25/2024 3:12 AM EDT) BLOOD CULTURE 2 Blood Culture 2 NG5D NO GROWTH AT 5 DAYS.^NO GROWTH AT 5 DAYS. [facility] 12/25/2024 3:12 AM EDT 12/25/2024 3:18 AM EDT Narrative CLINISY[facility] - 12/30/2024 2:58 PM EDT Generic External Data Provider LAB BLOOD ORDERAB LES Final Result Performing Organization Address City/[facility]/ZIP Co de Phone Number [facility] * URINE CULTURE - [facility] (12/25/2024 2:15 AM EDT) URINE CULTURE - [facility] Urine Culture - [facility] No Growth 2 Days [facility] - [facility] URINE [facility]ULTURE - [facility] Testing performed at [facility] URINE CULTURE - [facility] [address] [place] [address] [facility] 12/25/2024 2:15 AM EDT 12/25/2024 1:40 PM EDT Narrative CLINISYAK - 12/28/2024 11:19 AM EDT Generic External Data Provider LAB BLOOD ORDERAB LES Final Result Performing Organization Address City/[facility] Co de Phone Number [facility] * BLOOD CULTURE 1 (12/25/2024 12:40 AM EDT) BLOOD CULTURE 1 Blood Culture 1 NG5D NO GROWTH AT 5 DAYS.^NO GROWTH AT 5 DAYS. [facility] 12/25/2024 12:4 0 AM EDT 12/25/2024 3:02 AM EDT Narrative CLINISYAK - 12/30/2024 2:58 PM EDT Generic External Data Provider LAB BLOOD ORDERAB LES Final Result Performing Organization Address City/[facility]/ZIP Co de Phone Number [facility] documented in this encounter Visit Diagnoses Not on filedocumented in this encounter Additional Health Concerns Assessment Noted Time PHQ-9 Depression Total Score: 0 10/21/19 25 2:00 PM EDT documented as of this encounter Care Teams Painter Helper Relationship Specialty Start Date End Date Frantz Conley MD 112 [facility] 110 [place] [address] PCP - General Internal Medicine 5/17/23 Frantz Conley MD 112 [facility] 110 [place] [address] PCP - ACO Reach 08/16/22 documented as of this encounter
--- OUTSIDE RECORDS SUMMARY | 2025-01-04 14:33 | XMS_ITS | Encounter Summary ---
Author Organization [facility] Address [address] [place] [address] Care Team Providers Care Power Electronics Research Engineer Name Role Phone Frantz Conley MD Primary Care Provider [phone] Frantz Conley MD Unavailable [phone] Encounter Details Date Type Department Care Team (Late st Contact Info) Description 10/07/[address] [facility] [address] [facility] 110 [place] [address] Frantz Conley MD 112 [facility] 110 [place] [address] Social History Tobacco Use Types [...] often do you attend chur ch or baptism services? More than 4 times per year 04/15/2023 Do you belong to any clubs o r organizations such as jew groups, unions, fraternal or athletic groups, or [...] Recorded Patient Health Questionnaire-2 Score 0 10/05/2024 [facility] of Occupat ional Health [...] Visit NOMS [place] Al[place] [address] [facility] 110 [place] [address] Shey Campbell, CLEAN ROOM OPERATOR [address] [facility] 110 [place] [address] documented as of this encounter Visit Diagnoses Not on filedocumented in this encounter Additional Health Concerns Assessment Noted Time PHQ-9 Depression Total Score: 0 10/21/19 11:00 AM EDT documented as of this encounter Care Teams Power Electronics Research Engineer Relationship Specialty Start Date End Date Frantz Conley MD [address] [facility] [address] [place] [address] PCP - General Internal Medicine 08/08/22 Frantz Conley MD [address] [place] [address] PCP - ACO Reach 08/16/22 documented as of this encounter
--- OUTSIDE RECORDS SUMMARY | 2025-01-04 14:33 | XMS_ITS | Encounter Summary ---
Author Organization [facility] Address [address] [place] [address] Care Team Providers Care Md Do Resident Ur[facility] Name Role Phone Frantz Conley MD Primary Care Provider [phone] Frantz Conley MD Unavailable [phone] Encounter Details Date Type Department Care Team (Late st Contact Info) Description 09/09/2024 [facility] [address] [facility] 110 [place] [address] Frantz Conley MD 112 [facility] 110 [place] [address] Social History Tobacco Use Types [...] often do you attend chur ch or methodist services? More than 4 times per year 04/15/2023 Do you belong to any clubs o r organizations such as orthodoxy groups, unions, fraternal or athletic groups, or [...] Recorded Patient Health Questionnaire-2 Score 0 10/21/2023 [facility] of Occupat ional Health - Occupational [...] N[facility]S [place] [address] [facility] 110 [place] [address] Shey Campbell, MATERNITY FLOOR SUPERVISOR [address] [facility] 110 [place] [address] documented as of this encounter Visit Diagnoses Not on filedocumented in this encounter Additional Health Concerns Assessment Noted Time PHQ-9 Depression Total Score: 0 10/21/19 11:00 AM EDT documented as of this encounter Care Teams Md Do [facility] Relationship Specialty Start Date End Date Frantz Conley MD [address] [facility] 110 [place] [address] PCP - General Internal Medicine 08/08/22 Frantz Conley MD [address] [place] [address] PCP - ACO Reach 08/16/22 documented as of this encounter
--- OUTSIDE RECORDS SUMMARY | 2025-01-04 14:33 | XMS_ITS | Encounter Summary ---
Author Organization [facility] Address [address] [place] [address] Care Team Providers Care Training And Development Director Name Role Phone Frantz Conley MD Primary Care Provider Frantz Conley MD Unavailable [phone] Encounter Details Date Type Department Care Team (Late st Contact Info) Description 11/11/2024 Abstract [facility] [address] [facility] 110 [place] [address] Frantz Conley MD 112 [facility] 110 [place] [address] Social History Tobacco Use Types [...] often do you attend chur ch or jewish services? More than 4 times per year [...] Recorded Patient Health Questionnaire-2 Score 0 10/20/2024 [facility] of Occupat ional Health - Occupational [...] Office Visit NOMAníbal Almaraz [address] [facility] 110 [place] [address] Shey Campbell, MEDICAL DIRECTOR/HEAD TEAM PHYSICIAN [address] [facility] 110 [place] [address] documented as of this encounter Visit Diagnoses Not on filedocumented in this encounter Additional Health Concerns Assessment Noted Time PHQ-9 Depression Total Score: 0 10/21/19 25 2:00 PM EDT documented as of this encounter Care Teams Training And Development Director Relationship Specialty Start Date End Date Frantz Conley MD [address] [facility] [address] [place] [address] PCP - General Internal Medicine 08/08/22 Frantz Conley MD [address] [place] [address] PCP - ACO Reach 08/16/22 documented as of this encounter
--- OUTSIDE RECORDS SUMMARY | 2025-01-04 14:34 | XMS_ITS | Encounter Summary ---
Author Organization [facility] Address [address] [place] [address] Care Team Providers Care Housekeeping Lead Name Role Phone Frantz Conley MD Primary Care Provider [phone] Frantz Conley MD Unavailable [phone] Jazmin Toribio [employer] REVENUE OFFICER Unavailable [phone] Dang Bosch SIGNALS ANALYST Unavailable Encounter Details Date Type Department Care Team (Late st Contact Info) Description 06/05/2023 External Result Encounter NOMS External Department Unsolicited Frantz Conley MD [address] [facility] 110 [place] [address] Social History Tobacco Use Types Packs/Day Years [...] declined 04/15/2023 How often do you attend [facility] or presybeterian services? More than 4 times per year 04/15/2023 Do you belong to any clubs o r organizations such as scientology groups, unions, fraternal or athletic groups, or [...] Recorded Patient Health Questionnaire-2 Score 0 08/22/2022 [facility] of Occupat ional Health - Occupational [...] Visit NOMS Johnathon Almaraz [address] [place] [address] Shey Campbell, HOSPITALIST PHYSICIAN [address] [place] [address] documented as of this encounter Procedures Procedure Name Priority Date/Time Associated Diagnosis Comments US ABDOMEN LIMITED SPLEEN 06/05/2023 12:06 PM EDT documented in this encounter Results * US abdomen limited spleen (06/05/2023 12:06 PM EDT) Anatomical Region Laterality Modality Abdomen, Spleen Ultrasound 06/05/2023 12:0 6 PM EDT Impressions 06/05/2023 12:09 PM EDT Splenomegaly. No focal lesion. Impression dictated by: Kartik Claros Jr. DKitaOKita06/05/2023 12:06 PM Dictation Location: [place] [address] Tech: Demi Weinberg Transcribed By: USMAN 06/05/231205 Dictated By: Kartik Claros Jr, DO 06/05/23 1206 Signed By: <Electronically signed by Kartik Claros Jr, DO in OV> 06/05/23 1206 Narrative 06/05/2023 12:09 PM EDT [place] [id number] Ultrasound Report Signed Patient: Pankaj Matthews MR#: [id number] : 1945 Acct:[id number] Age/Sex: 77 / M ADM Date: 06/05/23 Loc: UL [facility]: [facility]: Frantz Conley II, MD Ordering [...] Procedure Note Radiology, Radiologist, MD - 06/05/[address] [address] Ultrasound Report Signed Patient: Pankaj Matthews AMR#: [id number] : 7Acct:[id number] Age/Sex: 77 / MADM Date: 06/05/23 Loc: [...] Claros Jr., D.OKita06/05/2023 12:06 PM Dictation Location: [place] [address] Tech: Demi Weinberg Transcribed By: PWS 06/05/23 1206 Dictated By: Kartik Claros Jr, DO 06/05/23 1206 Signed By: <Electronically signed by Kartik Claros Jr, DO inOV> 06/05/23 1206 us Frantz Conley MD IMG US PROCEDURES Final Result documented in this encounter Visit Diagnoses Not on filedocumented in this encounter Care Teams Housekeeping Lead Relationship Specialty Start Date End Date Frantz Conley MD [address] [facility] 110 [place] [address] PCP - General Internal Medicine 08/08/22 Frantz Conley MD [address] [facility] 110 [place] [address] PCP - ACO Reach 08/16/22 Jazmin Toribio, BLAYNE [address] [place] [address] Auto Body Repairer Family Medicine 08/04/24 08/07/24 Dang Bosch LPN [address] [facility] 110 [place] [address] 08/07/24 08/07/24 documented as of this encounter
--- OUTSIDE RECORDS SUMMARY | 2025-01-04 14:34 | XMS_ITS | Encounter Summary ---
Author Organization [facility] Address [address] [place] [address] Phone Care Team Providers Care Electric Trucker Name Role Phone Frantz Conley MD Primary Care Provider [phone] Encounter Details Date Type Department Care Team (Late st Contact Info) Description 04/30/2024 Scanned Document [facility] [address] [place] [id number] Scanning, Generic Provider Social History Tobacco Use [...] Care Team (Late st Contact Info) Description 01/14/2025 1:30 PM EDT Office Visit [address] [address] Maddie Barlow, FURNACE LOADER-BOW MAKER GIFT WRAPPING [facility] [facility], [address] [place], [place] [id number] 09/14/2025 2:00 PM EDT Office Visit [address] [phone] Crescencio Marin S, DO [facility] [facility] 2, [address] [place] [address] documented as of this encounter Visit Diagnoses Not on filedocumented in this encounter Additional Health Concerns Assessment Noted Time A fall risk assessment has been complete d for the patient 06/20/2023 10:03 AM EDT documented as of this encounter Care Teams Electric Trucker Relationship Specialty Start Date End Date Frantz Conley MD 112 [facility] 110 [place] [address] PCP - General Internal Medicine 06/20/23 documented as of this encounter
--- OUTSIDE RECORDS SUMMARY | 2025-01-04 14:34 | XMS_ITS | Encounter Summary ---
Author Organization [facility] Address [address] [place] [address] Care Team Providers Care Developmental Education Instructor Name Role Phone Frantz Conley MD Primary Care Provider [phone] Frantz Conley MD Unavailable [phone] Jazmin Toribio MOTORCYCLE POLICE OFFICER Unavailable [phone] Dang Bosch LPN Unavailable Encounter Details Date Type Department Care Team (Late st Contact Info) Description 05/01/2023 Orders Only [facility] [place] [address] [place] [address] Unallocated, Noms Provider, [address] [place] [address] Social History Tobacco Use Types Packs/Day Years [...] How often do you attend chur or church services? More than 4 times per year 04/15/2023 Do you belong to any clubs o r organizations such as baptism groups, unions, fraternal or athletic groups, or [...] Recorded Patient Health Questionnaire-2 Score 0 08/22/2022 [facility] [...] Johnathon Almaraz [address] [place] [address] Shey Campbell, LOW [address] [place] [address] documented as of this encounter Procedures Procedure [...] on filedocumented in this encounter Care Teams Developmental Education Instructor Relationship Specialty Start Date End Date Frantz Conley MD [address] [facility] 110 [place] [address] PCP - General Internal Medicine 08/08/22 Frantz Conley MD [address] [facility] 110 [place] [address] PCP - ACO Reach 08/16/22 Jazmin Toribio, MOTORCYCLE POLICE OFFICER [address] [place] [address] Cigarette Machines Mechanic Family Medicine 08/04/24 08/07/24 Dang Bosch LPN [address] [facility] 110 [place] [address] 08/07/24 08/07/24 documented as of this encounter
--- OUTSIDE RECORDS SUMMARY | 2025-01-04 14:34 | XMS_ITS | Clinical Summary ---
Author Organization [facility] Address [address] [place] [address] Phone Care Team Providers Care Process Control Engineer Name Role Phone Frantz Conley MD Primary Care Provider [phone] Allergies No known active allergies Medications clopidogrel (Plavix) 75 mg tablet Take 1 tablet (75 mg) by mouth once daily. 04/05/2023 Active fish oil concentrate (Ranson-3) 120-180 mg capsule Take 1 capsule (1,000 [...] Type Department Care Team Description 12/28/2024 Telephone [place] [address] [place] [address] Kina Mcduffie RN from Last 3 [...] Description 01/14/2025 1:30 PM EDT Office Visit [facility] 7[address] [facility] 250 [place] [address] Maddie Barlow, PRINCIPAL ADMINISTRATIVE CLERK-CYLINDER BATCHER 703 [facility] 2, [address] [place] [address] 09/14/2025 2:00 PM EDT Office Visit [facility] [address] [facility] [address] [place] [address] Crescencio Marin, [address] [facility] [address], [address] [place] [address] Health Maintenance Due Date Last Done Comments [...] 05/26/2020, 04/28/2020 Influenza Vaccine (#1) 2024 , 12/15/2023, 01/04/2023, Additional history exists Lipid Panel [...] Payer (Ef fective 2011-Present) Name:Pankaj Matthews Member ID:[id number] Relation to Subscriber:Self Name:Pankaj Matthews Subscriber ID:[id number] Payer ID:Not on file Group ID:Not on file Type:Not on file Address: [address] Care Teams Process Control Engineer Relationship Specialty Start Date End Date Frantz Conley MD 112 [facility] 110 [place] [address] PCP - General Internal Medicine 06/20/23
--- OUTSIDE RECORDS SUMMARY | 2025-01-04 14:34 | XMS_ITS | Encounter Summary ---
Author Organization [facility] Address [address] [place] [address] Care Team Providers Care Service Desk Specialist Name Role Phone Frantz Conley MD Primary Care Provider [phone] Frantz Conley MD Unavailable [phone] Jazmin Toribio BULL FIDDLE PLAYER Unavailable [phone] Dang Bosch LPN Unavailable Encounter Details Date Type Department Care Team (Late st Contact Info) Description 09/18/2023 Abstract [facility] 112 [facility] 110 [place] [phone] Frantz Conley MD 112 [facility] 110 [place], [place] [address] Social History Tobacco Use Types Packs/Day Years [...] How often do you attend chur or anabaptist services? More than 4 times per year 04/15/2023 Do you belong to any clubs o r organizations such as baptist groups, unions, fraternal [...] Patient Health Questionnaire-2 Score 0 08/22/2022 [facility] Occupat ional Health - [...] place to sleep or slept in a jail (including now)? No 04/15/2023 Sex and Gender [...] Visit [facility] Johnathon Almaraz [address] [facility] 110 [place] [address] Shey Campbell, NATURAL FABRICATOR [address] [facility] 110 [place] [address] documented as of this encounter Visit Diagnoses Not on filedocumented in this encounter Care Teams Service Desk Specialist Relationship Specialty Start Date End Date Frantz Conley MD [address] [facility] 110 [place] [address] PCP - General Internal Medicine 08/08/22 Frantz Conley MD [address] [facility] 110 [place] [address] PCP - ACO Reach 08/16/22 Jazmin Toribio, BLAYNE [address] [place] [address] Entry Rep Family Medicine 08/04/24 08/07/24 Dang Bosch LPN [address] [place] [address] 08/07/24 08/07/24 documented as of this encounter
--- OUTSIDE RECORDS SUMMARY | 2025-01-04 14:34 | XMS_ITS | Encounter Summary ---
Author Organization [facility] Address [address] [place] [address] Phone Care Team Providers Care Sash Sticker Name Role Phone Frantz Conley MD Primary Care Provider [phone] Encounter Details Date Type Department Care Team (Late st Contact Info) Description 09/17/2023 Scanned Document [facility] [address] [place] [id number] Scanning, Generic Provider Social History Tobacco Use [...] Description 01/14/2025 1:30 PM EDT Office Visit [address] [address] Maddie Barlow, SOUND EFFECTS TECHNICIAN-HEALTH INFORMATION MANAGEMENT DIRECTOR 703 [facility] 2, [address] [place], [place] [address] 09/14/2025 2:00 PM EDT Office Visit [address] [phone] Crescencio Marin S, DO 703 [facility] 2, [address] [place] [address] documented as of this encounter Visit Diagnoses Not on filedocumented in this encounter Additional Health Concerns Assessment Noted Time A fall risk assessment has been complete d for the patient 06/20/2023 10:03 AM EDT documented as of this encounter Care Teams Sash Sticker Relationship Specialty Start Date End Date Frantz Conley MD 112 [facility] 110 [place] [address] PCP - General Internal Medicine 06/20/23 documented as of this encounter
--- OUTSIDE RECORDS SUMMARY | 2025-01-04 14:34 | XMS_ITS | Encounter Summary ---
Author Organization [facility] Address [address] [place] [address] Care Team Providers Care Manager Cosmetic Name Role Phone Frantz Conley MD Primary Care Provider [phone] Frantz Conley MD Unavailable [phone] Jazmin Toribio EXPLOSIVE OPERATOR GRENADE Unavailable [phone] Dang Bosch LPN Unavailable Encounter Details Date Type Department Care Team (Late st Contact Info) Description 07/03/2023 Abstract [facility] 112 [facility] 110 [place] [address] Frantz Conley MD 112 [facility] 110 [place], [place] [address] Social History Tobacco Use Types Packs/Day Years [...] How often do you attend chur or voodoo services? More than 4 times per year [...] Recorded Patient Health Questionnaire-2 Score 0 08/22/2022 [facility] Occupat ional Health - [...] Visit N[facility]S Johnathon Almaraz [address] [facility] 110 [place] [address] Shey Campbell, ARTISTS' MODEL [address] [facility] 110 [place] [address] documented as of this encounter Visit Diagnoses Not on filedocumented in this encounter Care Teams Manager Cosmetic Relationship Specialty Start Date End Date Frantz Conley MD [address] [facility] 110 [place] [address] PCP - General Internal Medicine 08/08/22 Frantz Conley MD [address] [facility] 110 [place] [address] PCP - ACO Reach 08/16/22 Jazmin Toribio, BLAYNE [address] [place] [address] Automotive Designer Family Medicine 08/04/24 08/07/24 Dang Bosch LPN [address] [place] [address] 08/07/24 08/07/24 documented as of this encounter
--- OUTSIDE RECORDS SUMMARY | 2025-01-04 14:34 | XMS_ITS | Encounter Summary ---
Author Organization [facility] Address [address] [place] [address] Care Team Providers Care Motor Runner Name Role Phone Frantz Conley MD Primary Care Provider [phone] Frantz Conley MD Unavailable [phone] Jazmin Toribio DRAW FRAME TENDER Unavailable [phone] Dang Bosch LPN Unavailable Encounter Details Date Type Department Care Team (Late st Contact Info) Description 12/16/2023 Abstract [facility] [place] [facility] 112 [facility] 110 [place] [address] Frantz Conley MD 112 [facility] 110 [place], [place] [id number] Social History Tobacco Use Types Packs/Day Years [...] How often do you attend chur or mu-ism services? More than 4 times per year 04/15/2023 Do you belong to any clubs o r organizations such as jewish groups, unions, fraternal or athletic groups, or [...] place to sleep or slept in a prison (including now)? No 04/15/2023 Sex and Gender [...] [address] [facility] 110 [place] [address] Shey Campbell, MARKETING SUPPORT SPECIALIST [address] [facility] 110 [place] [address] documented as of this encounter Visit Diagnoses Not on filedocumented in this encounter Additional Health Concerns Assessment Noted Time PHQ-9 Depression Total Score: 0 10/21/19 11:00 AM EDT documented as of this encounter Care Teams Motor Runner Relationship Specialty Start Date End Date Frantz Conley MD [address] [facility] 110 [place] [address] PCP - General Internal Medicine 08/08/22 Frantz Conley MD [address] [facility] 110 [place] [address] PCP - ACO Reach 08/16/22 Jazmin Toribio, DRAW FRAME TENDER [address] [place] [address] Felt Carbonizer Family Medicine 08/04/24 08/07/24 Dang Bosch LPN [address] [facility] 110 [place] [address] 08/07/24 08/07/24 documented as of this encounter
--- OUTSIDE RECORDS SUMMARY | 2025-01-04 14:34 | XMS_ITS | Encounter Summary ---
Author Organization [facility] Address [address] [place] [address] Care Team Providers Care Director Product Management Name Role Phone Frantz Conley MD Primary Care Provider [phone] Frantz Conley MD Unavailable [phone] Jazmin Toribio CLINICAL ASSISTANT PROFESSOR Unavailable [phone] Dang Bosch SUBSTATION OPERATOR AUTOMATIC Unavailable Encounter Details Date Type Department Care Team (Late st Contact Info) Description 08/31/2022 Abstract [facility] [place] [facility] 112 [facility] 110 [place] [address] Frantz Conley MD 112 [facility] 110 [place], [place] [address] Social History Tobacco Use Types Packs/Day Years [...] Visit N[facility]S [place] [facility] [address] [facility] 110 [place] [address] Shey Campbell, POWER BRAKE REBUILDER [address] [facility] 110 [place] [address] documented as of this encounter Visit Diagnoses Not on filedocumented in this encounter Care Teams Director Product Management Relationship Specialty Start Date End Date Frantz Conley MD [address] [facility] 110 [place] [address] PCP - General Internal Medicine 08/08/22 Frantz Conley MD [address] [facility] 110 [place] [address] PCP - ACO Reach 08/16/22 Jazmin Toribio, CLINICAL ASSISTANT PROFESSOR [address] [facility] [address] Outdoor Fitness Trainer Family Medicine 08/04/24 08/07/24 Dang Bosch LPN [address] [facility] 110 [place] [address] 08/07/24 08/07/24 documented as of this encounter
--- OUTSIDE RECORDS SUMMARY | 2025-01-04 14:34 | XMS_ITS | Encounter Summary ---
Author Organization [facility] Address [address] [place] [address] Care Team Providers Care Irrigator Head Name Role Phone Frantz Conley MD Primary Care Provider [phone] Frantz Conley MD Unavailable [phone] Jazmin Toribio FACILITY SERVICE MANAGER Unavailable [phone] Dang Bosch LPN Unavailable Encounter Details Date Type Department Care Team (Late st Contact Info) Description 11/13/2023 Orders Only [facility] [place] [facility] [address] [facility] 110 [place] [address] Franchesca Lewis LPN [address] [place] [address] Pancytopenia, acquired ([facility]) Social History Tobacco Use Types Packs/Day [...] any clubs o r organizations such as uatsdin groups, unions, fraternal [...] Recorded Patient Health Questionnaire-2 Score 0 10/21/2023 [facility] - Occupational Stress Questionnaire [...] Description 01/07/2025 11:30 AM EDT Office Visit JUAN JOSÉS [place] [facility] [address] [facility] 110 [place] [address] Shey Campbell, LAYOUT MAN [address] [facility] 110 [place] [address] documented as of this encounter Visit Diagnoses Diagnosis Pancytopenia, acquired (CMS-HCC) Pancytopenia documented in this encounter Additional Health Concerns Assessment Noted Time PHQ-9 Depression Total Score: 0 10/21/19 24 11:00 AM EDT documented as of this encounter Care Teams Irrigator Head Relationship Specialty Start Date End Date Frantz Conley MD [address] [facility] 110 [place] [address] PCP - General Internal Medicine 08/08/22 Frantz Conley MD [address] [facility] 110 [place] [address] PCP - ACO Reach 08/16/22 Jazmin Toribio, FACILITY SERVICE MANAGER [address] [place] [address] American Board Certified Orthotist Family Medicine 08/04/24 08/07/24 Dang Bosch LPN [address] [facility] 110 [place] [address] 08/07/24 08/07/24 documented as of this encounter
--- OUTSIDE RECORDS SUMMARY | 2025-01-04 14:34 | XMS_ITS | Encounter Summary ---
Author Organization [facility] Address [address] [place] [address] Care Team Providers Care Food Safety Coordinator Name Role Phone Frantz Conley MD Primary Care Provider [phone] Frantz Conley MD Unavailable [phone] Jazmin Toribio COLORED LEATHER SETTER Unavailable [phone] Dang Bosch LPN Unavailable Encounter Details Date Type Department Care Team (Late st Contact Info) Description 06/20/2023 Abstract [facility] 112 [facility] 110 [place] [address] Frantz Conley MD 112 [facility] 110 [place], [place] [address] Social History Tobacco Use Types Packs/Day Years [...] [facility] [place] Almaraz [address] [facility] 110 [place] [address] Shey Campbell, SAP PP CONSULTANT [address] [facility] 110 [place] [address] documented as of this encounter Visit Diagnoses Not on filedocumented in this encounter Care Teams Food Safety Coordinator Relationship Specialty Start Date End Date Frantz Conley MD [address] [facility] 110 [place] [address] PCP - General Internal Medicine 08/08/22 Frantz Conley MD [address] [facility] 110 [place] [address] PCP - ACO Reach 08/16/22 Jazmin Toribio, BLAYNE [address] [place] [address] Communications Project Lead Family Medicine 08/04/24 08/07/24 Dang Bosch LPN [address] [place] [address] 08/07/24 08/07/24 documented as of this encounter
--- OUTSIDE RECORDS SUMMARY | 2025-01-04 14:34 | XMS_ITS | Encounter Summary ---
Author Organization [facility] Address [address] [place] [address] Care Team Providers Care Agile Qa Tester Name Role Phone Frantz Conley MD Primary Care Provider [phone] Frantz Conley MD Unavailable [phone] Jazmin Toribio X RAY TECHNOLOGIST Unavailable [phone] Dang Bosch LPN Unavailable Encounter Details Date Type Department Care Team (Late st Contact Info) Description 05/08/2023 Orders Only [facility] [address] [facility] 110 [place] [address] A, Unknown Practice 1300 [place] [address] Social History Tobacco Use Types [...] How often do you attend chur or confucianist services? More than 4 times per year 04/15/2023 Do you belong to any clubs o r organizations such as buddhist groups, unions, fraternal or athletic groups, or [...] Recorded Patient Health Questionnaire-2 Score 0 08/22/2022 [facility] of Occupat ional [...] JESÚS Almaraz [address] [place] [address] Shey Campbell, JAIL GUARD [address] [facility] 110 [place] [address] documented as of this encounter Procedures Procedure [...] on filedocumented in this encounter Care Teams Agile Qa Tester Relationship Specialty Start Date End Date Frantz Conley MD [address] [facility] 110 [place] [address] PCP - General Internal Medicine 08/08/22 Frantz Conley MD [address] [facility] 110 [place] [address] PCP - ACO Reach 08/16/22 Jazmin Toribio, BLAYNE [address] [place] [address] Securities Lending Trader Family Medicine 08/04/24 08/07/24 Dang Bosch LPN [address] [facility] 110 [place] [address] 08/07/24 08/07/24 documented as of this encounter
--- OUTSIDE RECORDS SUMMARY | 2025-01-04 14:34 | XMS_ITS | Encounter Summary ---
Author Organization [facility] Address [address] [place] [address] Care Team Providers Care Track Service Person Name Role Phone Frantz Conley MD Primary Care Provider [phone] Frantz Conley MD Unavailable [phone] Jazmin Toribio HAMMERSMITH HELPER Unavailable [phone] Dang Bosch LPN Unavailable Encounter Details Date Type Department Care Team (Late st Contact Info) Description 10/22/2023 Abstract [facility] [place] [facility] 112 [facility] 110 [place] [address] Frantz Conley MD 112 [facility] 110 [place], [place] [address] Social History Tobacco Use Types Packs/Day Years [...] How often do you attend chur or uatsdin services? More than 4 times per year 04/15/2023 Do you belong to any clubs o r organizations such as moravian groups, unions, fraternal or athletic groups, or [...] WAY [facility] 110 [place] [address] Shey Campbell, MANAGER BACKGROUND [address] [facility] 110 [place] [address] documented as of this encounter Visit Diagnoses Not on filedocumented in this encounter Additional Health Concerns Assessment Noted Time PHQ-9 Depression Total Score: 0 10/21/19 11:00 AM EDT documented as of this encounter Care Teams Track Service Person Relationship Specialty Start Date End Date Frantz Conley MD [address] [facility] 110 [place] [address] PCP - General Internal Medicine 08/08/22 Frantz Conley MD [address] [facility] 110 [place] [address] PCP - ACO Reach 08/16/22 Jazmin Toribio, HAMMERSMITH HELPER [address] [place] [address] Supervisor Aluminum Fabrication Family Medicine 08/04/24 08/07/24 Dang Bosch LPN [address] [facility] 110 [place] [address] 08/07/24 08/07/24 documented as of this encounter
--- OUTSIDE RECORDS SUMMARY | 2025-01-04 14:34 | XMS_ITS | Encounter Summary ---
Author Organization [facility] Address [address] [place] [address] Care Team Providers Care Drafter Geophysical Name Role Phone Frantz Conley MD Primary Care Provider [phone] Frantz Conley MD Unavailable [phone] Encounter Details Date Type Department Care Team (Late st Contact Info) Description 10/05/2024 Abstract [facility] [address] [facility] 110 [place] [address] Frantz Conley MD 112 [facility] 110 [place] [address] Social History Tobacco Use Types [...] any clubs o r organizations such as voodoo groups, unions, fraternal or athletic groups, or [...] Recorded Patient Health Questionnaire-2 Score 0 10/05/2024 [facility] of Occupat ional Health [...] Almaraz [address] [place] [address] Shey Campbell NP [address] [facility] 110 [place] [address] documented as of this encounter Visit Diagnoses Not on filedocumented in this encounter Additional Health Concerns Assessment Noted Time PHQ-9 Depression Total Score: 0 10/21/19 24 11:00 AM EDT documented as of this encounter Care Teams Drafter Geophysical Relationship Specialty Start Date End Date Frantz Conley MD 112 [facility] 110 [place] [address] PCP - General Internal Medicine 08/08/22 Frantz Conley MD 112 [facility] 110 [place] [address] PCP - ACO Reach 08/16/22 documented as of this encounter
--- OUTSIDE RECORDS SUMMARY | 2025-01-04 14:34 | XMS_ITS | Encounter Summary ---
Author Organization [facility] Address [address] [place] [address] Care Team Providers Care Head Start Teacher Name Role Phone Frantz Conley MD Primary Care Provider [phone] Frantz Conley MD Unavailable [phone] Jazmin Toribio REAL ESTATE CLOSER Unavailable [phone] Dang Bosch CHANNELER Unavailable Encounter Details Date Type Department Care Team (Late st Contact Info) Description 08/20/[address] [place] [facility] 112 [facility] 110 [place] [address] Frantz Conley MD 112 [facility] 110 [place], [place] [address] Social History Tobacco Use Types Packs/Day Years [...] Office Visit JESÚS Almaraz [address] [facility] 110 [place] [address] Shey Campbell, TRUCK FARMER [address] [facility] 110 [place] [address] documented as of this encounter Visit Diagnoses Not on filedocumented in this encounter Care Teams Head Start Teacher Relationship Specialty Start Date End Date Frantz Conley MD [address] [facility] 110 [place] [address] PCP - General Internal Medicine 08/08/22 Frantz Conley MD [address] [facility] 110 [place] [address] PCP - ACO Reach 08/16/22 Jazmin Toribio, BLAYNE [address] [place] [address] Manager Case Family Medicine 08/04/24 08/07/24 Dang Bosch LPN [address] [facility] [address] [place] [address] 08/07/24 08/07/24 documented as of this encounter
--- OUTSIDE RECORDS SUMMARY | 2025-01-04 14:34 | XMS_ITS | Encounter Summary ---
Author Organization [facility] Address [address] [place] [address] Care Team Providers Care Hospital Recruiter Name Role Phone Frantz Conley MD Primary Care Provider [phone] Frantz Conley MD Unavailable [phone] Jazmin Toribio TALENT DEVELOPMENT MANAGER Unavailable [phone] Dang Bosch LPN Unavailable Encounter Details Date Type Department Care Team (Late st Contact Info) Description 10/01/2022 Abstract [facility] [place] [facility] [address] [facility] 110 [place] [address] Frantz Conley MD 112 [facility] 110 [place] [address] Social History Tobacco Use Types Packs/Day Years [...] Visit [facility] [place] [facility] [address] [facility] 110 [place] [address] Shey Campbell, PERMASTONE INSTALLER [address] [facility] 110 [place] [address] documented as of this encounter Visit Diagnoses Not on filedocumented in this encounter Care Teams Hospital Recruiter Relationship Specialty Start Date End Date Frantz Conley MD [address] [facility] 110 [place] [address] PCP - General Internal Medicine 08/08/22 Frantz Conley MD [address] [facility] 110 [place] [address] PCP - ACO Reach 08/16/22 Jazmin Toribio, TALENT DEVELOPMENT MANAGER [address] [place] [address] Lead Consultant Family Medicine 08/04/24 08/07/24 Dang Bosch LPN [address] [facility] 110 [place] [address] 08/07/24 08/07/24 documented as of this encounter
--- OUTSIDE RECORDS SUMMARY | 2025-01-04 14:34 | XMS_ITS | Encounter Summary ---
Author Organization [facility] Address [address] [place] [address] Care Team Providers Care Agile Java Developer Name Role Phone Frantz Conley MD Primary Care Provider [phone] Frantz Conley MD Unavailable [phone] Jazmin Toribio PRECIPITATION EQUIPMENT TENDER Unavailable [phone] Dang Bosch LPN Unavailable Encounter Details Date Type Department Care Team (Late st Contact Info) Description 12/16/2023 Abstract [facility] [place] [facility] 112 [facility] 110 [place] [address] Frantz Conley MD 112 [facility] 110 [place], [place] [address] Social History Tobacco Use Types Packs/Day Years [...] How often do you attend chur or latter-day services? More than 4 times per year [...] [address] [facility] 110 [place] [address] Shey Campbell, PLUCK TRIMMER [address] [facility] 110 [place] [address] documented as of this encounter Visit Diagnoses Not on filedocumented in this encounter Additional Health Concerns Assessment Noted Time PHQ-9 Depression Total Score: 0 10/21/19 11:00 AM EDT documented as of this encounter Care Teams Agile Java Developer Relationship Specialty Start Date End Date Frantz Conley MD [address] [facility] 110 [place] [address] PCP - General Internal Medicine 08/08/22 Frantz Conley MD [address] [facility] 110 [place] [address] PCP - ACO Reach 08/16/22 Jazmin Toribio, PRECIPITATION EQUIPMENT TENDER [address] [place] [address] Gasoline Truck Operator Family Medicine 08/04/24 08/07/24 Dang Bosch LPN [address] [facility] 110 [place] [address] 08/07/24 08/07/24 documented as of this encounter
--- OUTSIDE RECORDS SUMMARY | 2025-01-04 14:34 | XMS_ITS ---
Author Organization [facility] Address [address] [facility] [place] [address] Care Team Providers Care Satellite Tv Installer Name Role Phone Frantz Conley MD Primary Care Provider [phone] Frantz Conley MD Unavailable [phone] Inpatient Discharge Transitional Care Management (TCM) Status:Closed (Closed) Start date:12/26/2024 Enrollment date:12/28/2024 Enrollment reason:Identified using hospital discharge data End date:12/28/2024 Close reason:Assistance not needed Overview Patient discharged from [facility] on 12/26. Please contact for hospital KIRSTEN and schedule follow-up appointment within 7-14 days. Continued Care and Services Coordination
--- OUTSIDE RECORDS SUMMARY | 2025-01-04 14:34 | XMS_ITS | Encounter Summary ---
Author Organization [facility] Address [address] [place] [address] Care Team Providers Care Hydrometer Calibrator Name Role Phone Frantz Conley MD Primary Care Provider Frantz Conley MD Unavailable [phone] Jazmin Toribio INTERIOR BLOCK WIRER Unavailable [phone] Dang Bosch LPN Unavailable Encounter Details Date Type Department Care Team (Late st Contact Info) Description 10/09/2023 Abstract [facility] [place] [facility] 112 [facility] 110 [place] [phone] Frantz Conley MD 112 [facility] 110 [place], [place] [id number] Social History Tobacco Use Types Packs/Day Years [...] How often do you attend chur or christianity services? More than 4 times per year 04/15/2023 Do you belong to any clubs o r organizations such as taoism groups, unions, fraternal or athletic groups, or [...] Recorded Patient Health Questionnaire-2 Score 0 08/22/2022 [facility] of Occupat ional Health - Occupational [...] Visit [facility] [place] Almaraz [address] [facility] 110 [place] [address] Shey Campbell, CLASS 1 OWNER OPERATOR [address] [facility] 110 [place] [address] documented as of this encounter Visit Diagnoses Not on filedocumented in this encounter Care Teams Hydrometer Calibrator Relationship Specialty Start Date End Date Frantz Conley MD [address] [facility] 110 [place] [address] PCP - General Internal Medicine 08/08/22 Frantz Conley MD [address] [facility] 110 [place] [address] PCP - ACO Reach 08/16/22 Jazmin Toribio, BLAYNE [address] [place] [address] Photo Checker And Assembler Family Medicine 08/04/24 08/07/24 Dang Bosch LPN [address] [facility] [address] [place] [address] 08/07/24 08/07/24 documented as of this encounter
--- OUTSIDE RECORDS SUMMARY | 2025-01-04 14:34 | XMS_ITS | Encounter Summary ---
Author Organization [facility] Address [address] [place] [address] Care Team Providers Care Technical Service Specialist Name Role Phone Frantz Conley MD Primary Care Provider [phone] Frantz Conley MD Unavailable [phone] Jazmin Toribio LITHOGRAPHED PLATE INSPECTOR Unavailable [phone] Dang Bosch LPN Unavailable Encounter Details Date Type Department Care Team (Late st Contact Info) Description 05/02/2023 Orders Only [facility] [place] [facility] [address] [facility] 110 [place] [address] A, Unknown Practice [address] [place] [address] Social History Tobacco Use Types Packs/Day Years [...] Recorded Patient Health Questionnaire-2 Score 0 08/22/2022 [facility] of Occupat ional [...] JESÚS Almaraz [address] [facility] [address] [place] [address] Shey Campbell, LOW [address] [facility] 110 [place] [address] documented as of this encounter Procedures Procedure Name Priority Date/Time Associated Diagnosis Comments ELECTROCARDIOGRAM REPORT Routine 024 4:02 PM EST documented in this encounter Results * Electrocardiogram Report (04/30/2023 4:02 PM EST) us Unknown Practice A IN CLINIC/BEDSIDE ORDERABLES Final Result documented in this encounter Visit Diagnoses Not on filedocumented in this encounter Care Teams Technical Service Specialist Relationship Specialty Start Date End Date Frantz Conley MD [address] [facility] 110 [place] [address] PCP - General Internal Medicine 08/08/22 Frantz Conley MD [address] [facility] 110 [place] [address] PCP - ACO Reach 08/16/22 Jazmin Toribio, LITHOGRAPHED PLATE INSPECTOR [address] [place] [address] Senior Informatica Developer Family Medicine 08/04/24 08/07/24 Dang oBsch LPN [address] [facility] 110 [place] [address] 08/07/24 08/07/24 documented as of this encounter
--- OUTSIDE RECORDS SUMMARY | 2025-01-04 14:34 | XMS_ITS | Encounter Summary ---
Author Organization [facility] Address [address] [place] [address] Phone Care Team Providers Care Receiving Operator Name Role Phone Frantz Conley MD Primary Care Provider [phone] Encounter Details Date Type Department Care Team (Late st Contact Info) Description 06/10/2023 Scanned Document [facility] [address] [place] [id number] Scanning, Generic Provider Social History Tobacco Use [...] 01/14/2025 1:30 PM EDT Office Visit [facility] [address] [facility] [address] [place] [address] Maddie Barlow, HANDKERCHIEF SAMPLE CLERK-SHAVING MACHINE OPERATOR [address] [place] [address] 09/14/2025 2:00 PM EDT Office Visit [facility] [address] [place] [address] Crescencio Marin, DO [address] [place] [address] documented as of this encounter Visit Diagnoses Not on filedocumented in this encounter Care Teams Receiving Operator Relationship Specialty Start Date End Date Frantz Conley MD 112 [facility] 110 [place] [address] PCP - General Internal Medicine 06/20/23 documented as of this encounter
--- OUTSIDE RECORDS SUMMARY | 2025-01-04 14:34 | XMS_ITS | Clinical Summary ---
Author Organization [facility] Address [address] [facility], [address] [place] [address] Care Team Providers Care Perinatal Technician Name Role Phone Frantz Conley MD Primary Care Provider [phone] Allergies No known active allergies Medications tiZANidine [...] Take 1 tablet by mouth daily Active Tifton-3 Fatty Acids (FISH OIL) 1000 MG CAPS [...] ID:Not on file Type:Not on file Address: [address] MEDICARE [facility] Advance Directives * Full Code (Latest Code Status on File) Date Activated Date Inactivated Comments 08/16/2021 8:15 PM 08/17/2021 4:39 PM Care Teams Perinatal Technician Relationship Specialty Start Date End Date Frantz Conley MD [address] [facility] [address] [place] [address] PCP - General Internal Medicine 08/16/21
--- OUTSIDE RECORDS SUMMARY | 2025-01-04 14:34 | XMS_ITS | Encounter Summary ---
Author Organization [facility] Address [address] [place] [address] Care Team Providers Care Kiln Maintenance Name Role Phone Frantz Conley MD Primary Care Provider [phone] Frantz Conley MD Unavailable [phone] Jazmin Toribio SOAPING MACHINE BACK TENDER Unavailable [phone] Dang Bosch LPN Unavailable Encounter Details Date Type Department Care Team (Late st Contact Info) Description 05/21/2023 Abstract [facility] [place] [facility] 112 [facility] 110 [place] [address] Frantz Conley MD 112 [facility] 110 [place], [place] [address] Social History Tobacco Use Types Packs/Day Years [...] Visit [facility] [place] [facility] [address] [facility] 110 [place] [address] Shey Campbell, TUNNEL ELASTIC OPERATOR LOCKSTITCH [address] [facility] 110 [place] [address] documented as of this encounter Visit Diagnoses Not on filedocumented in this encounter Care Teams Kiln Maintenance Relationship Specialty Start Date End Date Frantz Conley MD [address] [facility] 110 [place] [address] PCP - General Internal Medicine 08/08/22 Frantz Conley MD [address] [facility] 110 [place] [address] PCP - ACO Reach 08/16/22 Jazmin Toribio, BLAYNE [address] [place] [address] Support Manager Family Medicine 08/04/24 08/07/24 Dang Bosch LPN [address] [facility] [address] [place] [address] 08/07/24 08/07/24 documented as of this encounter
--- OUTSIDE RECORDS SUMMARY | 2025-01-04 14:34 | XMS_ITS | Encounter Summary ---
Author Organization [facility] Address [address] [place] [address] Care Team Providers Care Heel Breaster Name Role Phone Frantz Conley MD Primary Care Provider Frantz Conley MD Unavailable [phone] Jazmin Toribio WATER PROJECT MANAGER Unavailable [phone] Dang Bosch LPN Unavailable Encounter Details Date Type Department Care Team (Late st Contact Info) Description 05/08/2023 Abstract [facility] [place] [facility] 112 [facility] 110 [place] [address] Frantz Conley MD 112 [facility] 110 [place], [place] [address] Social History Tobacco Use Types Packs/Day Years [...] any clubs o r organizations such as adventism groups, unions, fraternal or athletic groups, or [...] Patient Health Questionnaire-2 Score 0 08/22/2022 [facility] of Occupat ional Health - Occupational [...] [address] [facility] 110 [place] [address] Shey Campbell, ROOM SERVER [address] [facility] 110 [place] [address] documented as of this encounter Visit Diagnoses Not on filedocumented in this encounter Care Teams Heel Breaster Relationship Specialty Start Date End Date Frantz Conley MD [address] [facility] 110 [place] [address] PCP - General Internal Medicine 08/08/22 Frantz Conley MD [address] [facility] 110 [place] [address] PCP - ACO Reach 08/16/22 Jazmin Toribio, BLAYNE [address] [place] [address] Administrative Staff Supervisor Family Medicine 08/04/24 08/07/24 Dang Bosch LPN [address] [facility] 110 [place] [address] 08/07/24 08/07/24 documented as of this encounter
--- OUTSIDE RECORDS SUMMARY | 2025-01-04 14:34 | XMS_ITS | Encounter Summary ---
Author Organization [facility] Address [address] [place] [address] Care Team Providers Care Pallet Stone Inserter Name Role Phone Frantz Conley MD Primary Care Provider [phone] Frantz Conley MD Unavailable [phone] Jazmin Toribio SYSTEMS SUPPORT ENGINEER Unavailable [phone] Dang Bosch LPN Unavailable Encounter Details Date Type Department Care Team (Late st Contact Info) Description 10/23/2023 Abstract [facility] [place] [facility] 112 [facility] 110 [place] [address] Frantz Conley MD 112 [facility] 110 [place], [place] [address] Social History Tobacco Use Types Packs/Day Years [...] Health Questionnaire-2 Score 0 10/21/2023 [facility] of Occupat ional Health [...] Visit [facility] [place] [facility] [address] [facility] 110 [place] [address] Shey Campbell, DRILL OPERATOR PNEUMATIC [address] [facility] 110 [place] [address] documented as of this encounter Visit Diagnoses Not on filedocumented in this encounter Additional Health Concerns Assessment Noted Time PHQ-9 Depression Total Score: 0 10/21/19 11:00 AM EDT documented as of this encounter Care Teams Pallet Stone Inserter Relationship Specialty Start Date End Date Frantz Conley MD [address] [facility] 110 [place] [address] PCP - General Internal Medicine 08/08/22 Frantz Conley MD [address] [facility] 110 [place] [address] PCP - ACO Reach 08/16/22 Jazmin Toribio, SYSTEMS SUPPORT ENGINEER [address] [place] [address] Dentistry Professor Family Medicine 08/04/24 08/07/24 Dang Bosch LPN [address] [facility] 110 [place] [address] 08/07/24 08/07/24 documented as of this encounter
--- OUTSIDE RECORDS SUMMARY | 2025-01-04 14:34 | XMS_ITS | Encounter Summary ---
Author Organization [facility] Address [address] [place] [address] Care Team Providers Care Bill Checker Name Role Phone Frantz Conley MD Primary Care Provider [phone] Frantz Conley MD Unavailable [phone] Jazmin Toribio COMBINED RAIL OPERATOR Unavailable [phone] Dang Bosch LPN Unavailable Encounter Details Date Type Department Care Team (Late st Contact Info) Description 10/24/2023 Abstract [facility] [place] [facility] 112 [facility] 110 [place] [address] Frantz Conley MD 112 [facility] 110 [place], [place] [address] Social History Tobacco Use Types Packs/Day Years [...] Recorded Patient Health Questionnaire-2 Score 0 10/21/2023 [facility] of Occupat ional Health - [...] Visit [facility] [place] Almaraz [address] [facility] 110 [place] [address] Shey Campbell, WEIGHT CLERK [address] [facility] [address] [place] [address] documented as of this encounter Visit Diagnoses Not on filedocumented in this encounter Additional Health Concerns Assessment Noted Time PHQ-9 Depression Total Score: 0 10/21/19 11:00 AM EDT documented as of this encounter Care Teams Bill Checker Relationship Specialty Start Date End Date Frantz Conley MD [address] [facility] [address] [place] [address] PCP - General Internal Medicine 08/08/22 Frantz Conley MD [address] [facility] 110 [place] [address] PCP - ACO Reach 08/16/22 Jazmin Toribio, COMBINED RAIL OPERATOR [address] [place] [address] Transplant Worker Family Medicine 08/04/24 08/07/24 Dang Bosch LPN [address] [facility] 110 [place] [address] 08/07/24 08/07/24 documented as of this encounter
--- OUTSIDE RECORDS SUMMARY | 2025-01-04 14:34 | XMS_ITS | Encounter Summary ---
Author Organization [facility] Address [address] [place] [address] Care Team Providers Care Middle School Pe Teacher Name Role Phone Frantz Conley MD Primary Care Provider [phone] Frantz Conley MD Unavailable [phone] Jazmin Toribio URGENT CARE TECHNICIAN Unavailable [phone] Dang Bosch LPN Unavailable Encounter Details [...] WAY [facility] 110 [place] [address] Shey Campbell, LAW FIRM ADMINISTRATOR [address] [facility] [address] [place], [place] [address] (work) documented as of this encounter Procedures Procedure Name Priority Date/Time Associated Diagnosis Comments CA ECHO DOPPLER COMPLETE 12/07/2022 6:29 PM EDT documented in this encounter Results * CA ECHO DOPPLER COMPLETE (12/07/2022 6:29 PM EDT) Anatomical Region Laterality Modality Other 12/07/2022 6:29 PM EDT Narrative 12/07/2022 6:29 [place] [address] Cardiology Report Signed Patient: AJ MATTHEWS MR#: [id number] : 1945 Acct:[id number] Age/Sex: 77 / M ADM Date: 12/07/22 Loc: CARD Attending Dr: HILLARY MURPHY Ordering Physician: HILLARY MURPHY Date of Service: 12/07/22 Procedure(s): CA echo doppler complete Accession Number(s): [id number] cc: Patient: AJ MATTHEWS. Exam Date: 12/07/2022 : 1945 Gender:M Ordering : HILLARY MURPHY Admission #: [id number] Family : Order #: [id number] CLICK HERE TO VIEW EXAM ECHOCARDIOGRAM REPORT [...] GRIFFITH Signed By: 12/07/221829 DD/ 28 TD/TT: Grave Cleaner: Procedure Note Radiology, Radiologist, MD - 12/13/2022 [place] [address] Cardiology Report Signed Patient: AJ MATTHEWS AMR#: [id number] : 1945cct:[id number] Age/Sex: 77 / MADM Date: 12/07/22 Loc: CARD Attending Dr: HILLARY MURPHY Ordering Physician: HILLARY MURPHY Date of Service: 12/07/22 Procedure(s): CA echo doppler complete Accession Number(s): [id number] cc: Patient: AJ MATTHEWS Exam Date: 12/07/2022 : 1945 Gender:M Ordering : HILLARY MURPHY Admission #: [id number] Family : Order #: [id number] CLICK HERE TO VIEW EXAM ECHOCARDIOGRAM REPORT [...] M.D. on 12/07/2022 at 18:21 Approved by: Lcuia Griffith M.D. on 12/07/2022 at 18:29 Dictated By: LUCIA GRIFFITH Signed By:12/07/221829 DD/ 28 TD/TT: Grave Cleaner: us Generic External Data Provider [facility] Final Result documented in this encounter Visit Diagnoses Not on filedocumented in this encounter Care Teams Middle School Pe Teacher Relationship Specialty Start Date End Date Frantz Conley MD [address] [facility] 110 [place] [address] PCP - General Internal Medicine 08/08/22 Frantz Conley MD [address] [facility] 110 [place] [address] PCP - ACO Reach 08/16/22 Jazmni Toribio, BLAYNE [address] [place] [address] Personnel Associate Family Medicine 08/04/24 08/07/24 Dang Bosch LPN [address] [facility] 110 [place] [address] 08/07/24 08/07/24 documented as of this encounter
--- OUTSIDE RECORDS SUMMARY | 2025-01-04 14:37 | XMS_ITS | CCD ---
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 Phone Zahler, Hardeep Unavailable Unavailable [...] Unavailable Frantz Conley MD Primary Care Provider [phone] SHANTANU MARIE Consulting Unavailable FRANTZ CONLEY Primary [...] Primary Care Provider Frantz Conley MD Unavailable [phone] MD Jose Manning Attending Provider LIBBY Conley Primary Care Provider LIBBY Conley Attending Provider Frantz Conley MD Primary Care Provider LIBBY Conley Primary Care Provider MD Mick Branch Attending Provider Jarvis IIFrantz Primary Care Provider Mick Branch MD Attending Provider FRANTZ CONLEY Attending Unavailable ROSANNA DALY Attending Unavailable FRANTZ CONLEY Attending Unavailable Jarvis IIFrantz Primary Care Provider Mick Branch MD Attending Provider [phone] Rc Hernandez MD Attending Provider Frantz Conley Primary Care Unavailable Mick Branch Admitting Unavailable Mick Branch Attending Unavailable Frantz Conley Primary Care Unavailable Mick Branch Admitting Unavailable Mick Branch Attending Unavailable Mick Branch Admitting Unavailable Mick Branch Attending Unavailable Frantz Conley Primary Care Unavailable Rc Hernandez Admitting Unavailable Rc Hernandez Attending Unavailable CRESCENCIO MARIN Attending Unavailable CRESCENCIO MARIN Referring Unavailable FRANTZ CONLEY Primary Care Unavailable CRESCENCIO MARIN Attending Unavailable CRESCENCIO MARIN Referring Unavailable FRANTZ CONLEY Primary Care Unavailable Medications Current Medications Medication [...] mo uth once daily fish oil concentrate ([place]port-3) 120-180 mg capsule Take 1 capsule (1,000 mg) by mouth once daily. Active take 1 capsule by mouth three ti mes daily [place]-3 Fatty Acids (FISH OIL) 1000 MG CAPS [...] tablet by mouth once daily. 0 Active [place] 0-Jac-Lhj-Fish Oil (Fish Oil) 1,000 mg (120 mg-180 mg) Capsule (14 sources) Start: 04-26-2021 take 1 capsule by mouth three times daily [place] 3-Hjn-Ens-Fish Oil (Fish Oil) 1,000 mg (120 mg-180 mg) Capsule Active 1 CAP PO Three times daily April 26, 2021 1:00am Complies with drug therapy Start: 04-26-2021 take 1 capsule by [facility] three times daily Start: 04-26-2021 take 1 capsule by [facility] three times daily [place] 8-Bcf-Bkq-Fish Oil (Fish Oil) 1,000 mg (120 mg-180 mg) Capsule Active 1 CAP PO Three times daily April 26, 2021 12:00am Start: 04-26-2021 take 1 capsule by [facility] three times daily [place] 5-Mql-Pud-Fish Oil (Fish Oil) 1,000 mg (120 mg-180 mg) Capsule Active 1 CAP PO Three times daily April 26, 2021 1:00am [place]port-3 Fatty Acids (Fish Oil) 1000 MG capsule delayed-release (18 sources) Start: 09-13-2014 take 1 capsule by mouth once daily [place]port-3 Fatty Acids (Fish Oil) 1000 MG capsule delayed-release Take 1 capsule by mouth 1 (one) time each day. 09/13/2014 Active Start: 09-13-2014 take 1 capsule by [facility] once daily [place]port-3 Fatty Acids (Fish Oil) 1000 MG capsule [...] Active Start: 04-18-2023 take 1 tablet by [facility] twice daily as needed Start: 04-18-2023 tiZANidine [...] Substituted for Omeprazole (PRILOSEC). 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/ANTIPLATL ETS] Onset: 08-18-2021 Episodic Other and [...] hemorrhage, unspecified] Onset: 08-16-2021 Resolved: 10-21-2023 Chronic Cardiac dysrhythmias (14 sources) Bradycardia; Translations: [...] 08-13-2022 Episodic Other aftercare (1 source) 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 Normal [facility] Comment on above: Performed By: #### P T, CMP, CBC #### [facility] [address] [place] [address] [facility] ALL CBC WITH AUTO DIFFon BASOPHILS ABSOLUTE AUTO 0 [facility] Basophils/100 WBC (Bld) 0.6 % 0.2 - 2.0 % [facility] Eosinophils/100 WBC (Bld) 3.2 % 0.9 - 7.0 % [facility] Erythrocyte distribution width (RBC) [Ratio] 14.3 % 11.0 - 15.0 % [facility] Hematocrit (Bld) [Volume fraction] 33.2 % Low 42.0 - 54.0 % [facility] Hemoglobin (Bld) [Mass/Vol] 10.8 g/dL Low 14.0 - 18.0 g/dL [facility] IMMATURE GRANULOCYTES ABS AUTO 0.01 [facility] Immature granulocytes/100 WBC (Bld) 0.3 % 0.0 - 0.5 % [facility] Interpretation and review of laboratory results Abnormal [facility] LYMPHOCYTES ABSOLUTE AUTO 0.6 Low [facility] Lymphocytes/100 WBC (Bld) 19.4 % Low 20.5 - 60.0 % [facility] MCH (RBC) [Entitic mass] 31.5 pg 25.9 - 34.0 pg [facility] MCHC (RBC) [Mass/Vol] 32.5 g/dL 29.9 - 35.2 g/dL [facility] MCV (RBC) [Entitic vol] 96.8 fL High 80.0 - 94.0 fL [facility] MONOCYTES ABSOLUTE AUTO 0.2 Low [facility] Monocytes/100 WBC (Bld) 7.3 % 1.7 - 12.0 % [facility] NEUTROPHILS ABSOLUTE AUTO 2.2 [facility] Neutrophils/100 WBC (Bld) 69.2 % 43.0 - 75.0 % [facility] Platelet mean volume (Bld) [Entitic vol] 11 fL 9.5 - 13.5 fL [facility] EO # 0.1 [facility] PLT [address] [facility] RBC [address] [facility] WBC 3.[address] [facility] Alanine aminotransferase [En zymatic activity/volume] in Serum or PlasmaOrdered By: Mick Branch on 11-02-2024 ALT [Catalytic activity/Vol] 52 U/L Normal 7-52 [facility] Comment on above: Performed By: #### P T, CMP, CBC #### [facility] [address] Albumin [Mass/volume] in Ser um or Plasma by Bromocresol green (BCG) dye binding methoOrdered By: Mick Branch on 11-02-2024 Albumin BCG dye [Mass/Vol] 3.1 g/dL Low 3.5-5.7 [facility] Alkaline phosphatase [Enzyma tic activity/volume] in Serum or PlasmaOrdered By: Mick Branch on 11-02-2024 ALP [Catalytic activity/Vol] 124 U/L High 34-104 [facility] Comment on above: Result Comment: PERF ORMED BY: [place] [address] PATHOLOGIST PUMP ERECTOR HELPER GUERA MARROQUIN M.D. Performed By: #### P T, CMP, CBC #### [facility] [address] [place] [address] [place] Aspartate aminotransferase [ Enzymatic activity/volume] in Serum or PlasmaOrdered By: Mick Branch on 11-02-2024 AST [Catalytic activity/Vol] 58 U/L High 13-39 [facility] Comment on above: Performed By: #### P T, CMP, CBC #### [facility] [address] [place] [address] [place] Basophils [#/volume] in Bloo d by Automated countOrdered By: Mick Branch on 11-02-2024 Basophils (Bld) [#/Vol] 0.0 10*3/uL Normal 0.0-0.2 [facility] Comment on above: Result Comment: PERF ORMED BY: [place] [address] PATHOLOGIST PUMP ERECTOR HELPER GUERA MARROQUIN M.D. Performed By: #### P T, CMP, CBC #### [address] Basophils/100 leukocytes in Blood by Automated countOrdered By: Mick Branch on 11-02-2024 Basophils/100 WBC (Bld) 0.8 % Normal . [facility] Comment on above: Performed By: #### P T, CMP, CBC #### [facility] [address] Bilirubin.total [Mass/volume ] in Serum or PlasmaOrdered By: Mick Branch on 11-02-2024 Bilirubin [Mass/Vol] 0.9 mg/dL Normal 0.3-1.0 [facility] Comment on above: Performed By: #### P T, CMP, CBC #### [address] Calcium [Mass/volume] in Ser um or PlasmaOrdered By: Mick Branch on 11-02-2024 Calcium [Mass/Vol] 7.9 mg/dL Low 8.6-10.3 [facility] Comment on above: Performed By: #### P T, CMP, CBC #### [address] Carbon dioxide, total [Moles /volume] in Serum or PlasmaOrdered By: Mick Branch on 11-02-2024 CO2 [Moles/Vol] 29.1 mmol/L Normal 21.0-31.0 [facility] Comment on above: Performed By: #### P T, CMP, CBC #### [facility] [address] [place] [address] [place] Chloride [Moles/volume] in S lilly or PlasmaOrdered By: Mick Branch on 11-02-2024 Chloride [Moles/Vol] 110 mmol/L High 98-107 [facility] Comment on above: Performed By: #### P T, CMP, CBC #### [facility] [address] Complete Blood Count Auto Di ffon 11-02-2024 Mean Corpuscular HGB Conc 33.5 g/dL Normal 32.5-35.6 [facility] Comment on above: Performed By: #### P T, CMP, CBC #### [facility] [address] [place] [address] NRBC% 0.0 /100{WBC} Normal 0-0.5 [facility] Comment on above: Performed By: #### P T, CMP, CBC #### [facility] [address] [place] [address] White Blood Count 3.0 [CFU]/mL Low 4.1-10.5 [facility] Comment on above: Performed By: #### P T, CMP, CBC #### [address] Comprehensive Metabolic Pane ross 11-02-2024 Albumin [Mass/Vol] 3.1 g/dL Low 3.5-5.7 [facility] Comment on above: Performed By: #### P T, CMP, CBC #### [place] [address] [place] GFR/1.73 sq M.predicted MDRD (S/P/Bld) [Vol rate/Area] mL/min/{1.73_m2} Normal [facility] Comment on above: Performed By: #### P T, CMP, CBC #### [facility] [address] [place] [address] [place] Creatinine [Mass/volume] in Serum or PlasmaOrdered By: Mick Branch on 11-02-2024 Creatinine [Mass/Vol] 0.71 mg/dL Normal 0.70-1.[address] [facility] Comment on above: Performed By: #### P T, CMP, CBC #### [facility] [address] [place] [address] Eosinophils [#/volume] in Bl ood by Automated countOrdered By: Mick Branch on 11-02-2024 Eosinophils (Bld) [#/Vol] 0.1 10*3/uL Normal 0.0-0.45 [facility] Comment on above: Performed By: #### P T, CMP, CBC #### [address] Eosinophils/100 leukocytes i n Blood by Automated countOrdered By: Mick Branch on 11-02-2024 Eosinophils/100 WBC (Bld) 1.8 % Normal . [facility] Comment on above: Performed By: #### P T, CMP, CBC #### [address] Erythrocyte distribution wid th [Ratio] by Automated countOrdered By: Mick Branch on 11-02-2024 Erythrocyte distribution width (RBC) [Ratio] 16.4 % High 12.0-14.8 [facility] Comment on above: Performed By: #### P T, CMP, CBC #### [address] Erythrocytes [#/volume] in B lood by Automated countOrdered By: Mick Branch on 11-02-2024 RBC (Bld) [#/Vol] 3.58 10*6/uL Low 3.90-5.[address] [facility] Comment on above: Performed By: #### P T, CMP, CBC #### [address] Glucose [Mass/volume] in Ser um or PlasmaOrdered By: Mick Branch on 11-02-2024 Glucose [Mass/Vol] 120 mg/dL High 70-100 [facility] Comment on above: ADA recommended refe rence rangeRandom Glucose Reference Range is dependent on time and content of last meal. Glucose of more than 200 mg/dL in a nonstressed, ambulatory subject supports the diagnosis of Diabetes Mellitus. Result Comment: Hayden om Glucose Reference Range is dependent on time and content of last meal. Glucose of more than 200 mg/dL in a nonstressed, ambulatory subject supports the diagnosis of Diabetes Mellitus. ADA recommended reference range Performed By: #### P T, CMP, CBC #### [place] [address] [place] Hematocrit [Volume Fraction] of Blood by Automated countOrdered By: Mick Branch on 11-02-2024 Hematocrit (Bld) [Volume fraction] 34.1 % Low 38.8-50.0 [facility] Comment on above: Performed By: #### P T, CMP, CBC #### [facility] [address] [place] [address] Hemoglobin [Mass/volume] in BloodOrdered By: Mick Branch on 11-02-2024 Hemoglobin (Bld) [Mass/Vol] 11.4 g/dL Low 13.0-17.0 [facility] Comment on above: Performed By: #### P T, CMP, CBC #### [address] INR in Platelet poor plasma by Coagulation assayOrdered By: Mick Branch on 11-02-2024 INR Coag (PPP) [Relative time] 1.2 {INR} Normal [facility] Comment on above: INR Therapeutic Rang e [...] heart valves: 3 - 4.5 PERFORMED BY: [place] [address] PATHOLOGIST PUMP ERECTOR HELPER GUERA MARROQUIN M.D. Performed By: #### P T, CMP, CBC #### [address] Leukocytes [#/volume] correc britt for nucleated erythrocytes in Blood by Automated counOrdered By: Mick Branch on 11-02-2024 WBC corrected for nucl RBC Auto (Bld) [#/Vol] 3.0 10*3/uL Low 4.1-10.5 [facility] Leukocytes [#/volume] in Blo od by Automated countOrdered By: Mick Branch on 11-02-2024 WBC (Bld) [#/Vol] 3.0 10*3/uL Low 4.1-10.5 [facility] Comment on above: Performed By: #### P T, CMP, CBC #### [facility] [address] [place] [address] [place] Lymphocytes [#/volume] in Bl ood by Automated countOrdered By: Mick Branch on 11-02-2024 Lymphocytes (Bld) [#/Vol] 0.5 10*3/uL Low 1.00-4.8 [facility] Comment on above: Performed By: #### P T, CMP, CBC #### [facility] [address] [place] [address] [place] Lymphocytes/100 leukocytes i n Blood by Automated countOrdered By: Mick Branch on 11-02-2024 Lymphocytes/100 WBC (Bld) 15.8 % Normal . [facility] Comment on above: Performed By: #### P T, CMP, CBC #### [facility] [address] [place] [address] MCH [Entitic mass] by Automa britt countOrdered By: Mick Branch on 11-02-2024 MCH (RBC) [Entitic mass] 31.9 pg Normal 27.5-35.2 [facility] Comment on above: Performed By: #### P T, CMP, CBC #### [facility] [address] [place] [address] MCHC Auto (RBC) [Mass/Vol]Or dered By: Mick Branch on 11-02-2024 MCHC (RBC) [Mass/Vol] 33.5 g/dL 32.5-35.[address] [facility] MCV [Entitic volume] by Auto mated countOrdered By: Mick Branch on 11-02-2024 MCV (RBC) [Entitic vol] 95.2 fL Normal 83.5-101 [facility] Comment on above: Performed By: #### P T, CMP, CBC #### [address] Monocytes [#/volume] in Bloo d by Automated countOrdered By: Mick Branch on 11-02-2024 Monocytes (Bld) [#/Vol] 0.2 10*3/uL Normal 0.0-0.8 [facility] Comment on above: Performed By: #### P T, CMP, CBC #### [address] Monocytes/100 leukocytes in Blood by Automated countOrdered By: Mick Branch on 11-02-2024 Monocytes/100 WBC (Bld) 6.7 % Normal . [facility] Comment on above: Performed By: #### P T, CMP, CBC #### [address] Neutrophils [#/volume] in Bl ood by Automated countOrdered By: Mick Branch on 11-02-2024 Neutrophils (Bld) [#/Vol] 2.2 10*3/uL Normal 1.8-7.7 [facility] Comment on above: Performed By: #### P T, CMP, CBC #### [address] Neutrophils/100 leukocytes i n Blood by Automated countOrdered By: Mick Branch on 11-02-2024 Neutrophils/100 WBC (Bld) 74.9 % Normal . [facility] Comment on above: Performed By: #### P T, CMP, CBC #### [address] No Panel InformationOrdered By: Mick Branch on 11-02-2024 Estimated GFR (CKD-EPI) > 60.0 mL/Min [facility] Creatinine Clearance (Chem N/A [facility] Nucleated erythrocytes [Pres ence] in Blood by Automated countOrdered By: Mick Branch on 11-02-2024 Nucleated RBC Auto Ql (Bld) 0.0 /100{WBC} 0-0.5 [facility] Platelet mean volume [Entiti c volume] in Blood by Automated countOrdered By: Mick Branch on 11-02-2024 Platelet mean volume (Bld) [Entitic vol] 8.0 fL Normal 6.6-10.1 [facility] Comment on above: Performed By: #### P T, CMP, CBC #### [facility] [address] Platelets [#/volume] in Bloo d by Automated countOrdered By: Mick Branch on 11-02-2024 Platelets (Bld) [#/Vol] 102 10*3/uL Low 150-450 [facility] Comment on above: Performed By: #### P T, CMP, CBC #### [facility] [address] [place] [address] Potassium [Moles/volume] in Serum or PlasmaOrdered By: Mick Branch on 11-02-2024 Potassium [Moles/Vol] 3.9 mmol/L Normal 3.5-5.[address] [facility] Comment on above: Performed By: #### P T, CMP, CBC #### [facility] [address] Protein [Mass/volume] in Ser um or PlasmaOrdered By: Mick Branch on 11-02-2024 Protein [Mass/Vol] 5.8 g/dL Low 6.4-8.9 [facility] Comment on above: Performed By: #### P T, CMP, CBC #### [facility] [address] [place] [address] Prothrombin time (PT)Ordered By: Mick Branch on 11-02-2024 PT Coag (PPP) [Time] 13.5 s High 9.0-12.9 [facility] Comment on above: A hematocrit value g reater than 55% may lead to inaccurate results in coagulation testing. Patients having hematocrit values >55% require a special collection tube for coagulation studies. Please contact the laboratory at [phone] for redraw instructions. Result Comment: A he matocrit value greater than 55% may lead to inaccurate results in coagulation testing. Patients having hematocrit values >55% require a special collection tube for coagulation studies. Please contact the laboratory at [phone] for redraw instructions. Performed By: #### P T, CMP, CBC #### [address] Serum globulin measurement b y calculation (mass/volume)Ordered By: Mick Branch on 11-02-2024 Globulin (S) [Mass/Vol] 2.7 g/dL [facility] Comment on above: Performed By: #### P T, CMP, CBC #### [address] Serum or plasma albumin/glob ulin mass ratioOrdered By: Mick Branch on 11-02-2024 Albumin/Globulin [Mass ratio] 1.1 {ratio} [facility] Comment on above: Performed By: #### P T, CMP, CBC #### [address] Serum or plasma anion gap de terminationOrdered By: Mick Branch on 11-02-2024 Anion gap [Moles/Vol] 5.8 mmol/L Low 6.0-15.[address] [facility] Comment on above: Performed By: #### P T, CMP, CBC #### [address] Sodium [Moles/volume] in Ser um or PlasmaOrdered By: Mick Branch on 11-02-2024 Sodium [Moles/Vol] 141 mmol/L Normal 136-145 [facility] Comment on above: Performed By: #### P T, CMP, CBC #### [address] Urea nitrogen [Mass/volume] in Serum or PlasmaOrdered By: Mick Branch on 11-02-2024 Urea nitrogen [Mass/Vol] 15 mg/dL Normal 7-25 [facility] Comment on above: Performed By: #### P T, CMP, CBC #### [facility] [address] ALL BASIC METABOLIC PANELon 10-01-2024 Anion gap [Moles/Vol] 13.1 mmol/L [facility] Calcium [Mass/Vol] 9 mg/dL 8.5 - 10. 1 mg/dL [facility] Chloride [Moles/Vol] 111 mmol/L High 98 - 10 7 mmol/L [facility] CO2 [Moles/Vol] 26.2 mmol/L 21.0 - 32.0 mmol/L [facility] Creatinine [Mass/Vol] 0.89 mg/dL 0.70 - 1.30 mg/dL [facility] GFR/1.73 sq M.predicted CKD-EPI (S/P/Bld) [Vol rate/Area] >60 >=60 mL/min/1.7 3m 2 [facility] Glucose [Mass/Vol] 106 mg/dL 74 - 106 mg/dL [facility] Potassium [Moles/Vol] 4.3 mmol/L 3.5 - 5.1 mmol/L [facility] Sodium [Moles/Vol] 146 mmol/L High 136 - 145 mmol/L [facility] EGFR-NON AF MALAWIAN >60 >=60 mL/min/1.7 3m 2 [facility] Urea nitrogen [Mass/Vol] 17 mg/dL 7.0 - 18.0 mg/dL [facility] Urea nitrogen/Creatinine [Mass ratio] 19.1 mg/mg [facility] ALL LIPID PROFILE (FASTING)o n 10-01-2024 CHOL HDL RATIO 1.9 [facility] Comment on above: 3.3 - 4.4 LOW RISK 4.4 - 7.1 AVERAGE RISK 7.1 - 11.0 MODERATE RISK >11.0 HIGH RISK Cholesterol [Mass/Vol] 113 mg/dL NINF - 200 mg/dL [facility] Cholesterol in HDL [Mass/Vol] 60 mg/dL 40 - 60 mg/dL [facility] Comment on above: > or =60 mg/dl - LOW CARDIOVASCULAR RISK <40 mg/dl - HIGH CARDIOVASCULAR RISK Magnesium [Mass/Vol] 41.4 mg/dL [facility] Comment on above: <100 mg/dl OPTIMAL 100-129 mg/dl NEAR OR ABOVE OPTIMAL 130-159 mg/dl BORDERLINE HIGH 160-189 mg/dl HIGH >190 mg/dl VERY HIGH Magnesium [Mass/Vol] 11.6 mg/dL [facility] Triglyceride [Mass/Vol] 58 mg/dL NINF - 150 mg/dL [facility] 10-01-2024 ALT [Catalytic activity/Vol] 51 U/L 16 - 63 U/L [facility] Porfirio 10-01-2024 AST [Catalytic activity/Vol] 46 U/L High 15 - 37 U/L [facility] No Panel Informationon 10-01 Interpretation and review of laboratory results Abnormal [facility] ALL CBC WITH AUTO DIFFon Erythrocyte distribution width (RBC) [Ratio] 13.8 % 11.0 - 15.0 % [facility] Hematocrit (Bld) [Volume fraction] 37.5 % Low 42.0 - 54.0 % [facility] Hemoglobin (Bld) [Mass/Vol] 12.6 g/dL Low 14.0 - 18.0 g/dL [facility] Interpretation and review of laboratory results Abnormal [facility] MCH (RBC) [Entitic mass] 31.2 pg 25.9 - 34.0 pg [facility] MCHC (RBC) [Mass/Vol] 33.6 g/dL 29.9 - 35.2 g/dL [facility] MCV (RBC) [Entitic vol] 92.8 fL 80.0 - 94.0 fL [facility] Platelet mean volume (Bld) [Entitic vol] 10.6 fL 9.5 - 13.5 fL [facility] PLT 65 Low [facility] RBC 4.04 Low [facility] WBC 3.3 Low [facility] 36on 07-09-2024 36 This patient hasn't been seen since 2022 Normal [facility] US abdomen limitedon 025 US abdomen limited [facility] [place] [address] Ultrasound Report Signed Patient: Pankaj Payne MR#: [id number] : 1945 Acct:[id number] Age/Sex: 78 / M ADM Date: 05/21/24 Loc: Room: Type: [facility] Attending Dr: Mick Branch MD [...] Claros Jr., D.OKita05/21/2024 10:23 AM Dictation Location: [place] [address] Tech: Lizzy Llanes Transcribed By: USMAN 05/21/24 1023 Dictated By: Kartik Claros Jr, DO 05/21/24 1022 Signed By: 05/21/24 1023 Normal [facility] AFP Tumor Marker, Serumon AFP Tumor Marker, Serum 2.5 ng/mL Normal 0.0-8.4 [facility] Comment on above: Result Comment: [facility] [employer] Electrochemiluminescence Immunoassay (ECLIA) Values obtained with different assay methods or kits cannot be used interchangeably. Results cannot be interpreted as absolute evidence of the presence or absence of malignant disease. This test is not interpretable in females. Performed at: [facility] [address] [id number] Inspector Conveyor Line: Charlie Klein PhD, Phone: [phone] PERFORMED BY: [place] [address] PATHOLOGIST PUMP ERECTOR HELPER LUCIUS IRELAND M.D. Performed By: #### A FPTM #### [facility] , #### PSAS, TSH3 wRFLX, CMP, PT, LIPID #### [address] Alanine aminotransferase [En zymatic activity/volume] in Serum or PlasmaOrdered By: Mick Branch on 04-30-2024 ALT [Catalytic activity/Vol] Alanine aminotransferase [Enzymatic activity/volume] in Serum or Plasma 7-52 [facility] Albumin [Mass/volume] in Ser um or Plasma by Bromocresol green (BCG) dye binding methoOrdered By: Mick Branch on 04-30-2024 Albumin BCG dye [Mass/Vol] Albumin [Mass/volume] in Serum or Plasma by Bromocresol green (BCG) dye binding metho 3.5-5.7 [facility] Alkaline phosphatase [Enzyma tic activity/volume] in Serum or PlasmaOrdered By: Mick Branch on 04-30-2024 ALP [Catalytic activity/Vol] Alkaline phosphatase [Enzymatic activity/volume] in Serum or Plasma High 34-104 [facility] Aspartate aminotransferase [ Enzymatic activity/volume] in Serum or PlasmaOrdered By: Mick Branch on 04-30-2024 AST [Catalytic activity/Vol] Aspartate aminotransferase [Enzymatic activity/volume] in Serum or Plasma High 13-39 [facility] Bilirubin.total [Mass/volume ] in Serum or PlasmaOrdered By: Mick Branch on 04-30-2024 Bilirubin [Mass/Vol] Bilirubin.total [Mass/volume] in Serum or Plasma 0.3-1.0 [facility] Calcium [Mass/volume] in Ser um or PlasmaOrdered By: Mick Branch on 04-30-2024 Calcium [Mass/Vol] Calcium [Mass/volume ] in Serum or Plasma 8.6-10.3 [facility] Carbon dioxide, total [Moles /volume] in Serum or PlasmaOrdered By: Mick Branch on 04-30-2024 CO2 [Moles/Vol] Carbon dioxide, tota l [Moles/volume] in Serum or Plasma High 21.0-31.0 [facility] Chloride [Moles/volume] in S lilly or PlasmaOrdered By: Mick Branch on 04-30-2024 Chloride [Moles/Vol] Chloride [Moles/vol ume] in Serum or Plasma High 98-107 [facility] Cholesterol [Mass/volume] in Serum or PlasmaOrdered By: Mick Branch on 04-30-2024 Cholesterol [Mass/Vol] Cholesterol [Mass /volume] in Serum or Plasma 140-200 [facility] Comment on above: Chol less than 200 m g/dl low riskChol 201-239 mg/dl borderline riskChol 240 mg/dl and greater high risk Cholesterol in HDL [Mass/vol ume] in Serum or PlasmaOrdered By: Mick Branch on 04-30-2024 Cholesterol in HDL [Mass/Vol] Serum or plasma high density lipoprotein (HDL) cholesterol measurement 23-92 [facility] Comment on above: HDL CHOL ATP-III CLA SSIFICATION Cardiovascular RiskHDL > or equal to 60 mg/dL LOWHDL < 40 mg/dL HIGH Cholesterol in LDL Calc [Mas s/Vol]Ordered By: Mick Branch on 04-30-2024 Cholesterol in LDL [Mass/Vol] Cholesterol in LDL [Mass/volume] in Serum or Plasma by calculation 0-100 [facility] Comment on above: LDL ATP III CLASSIFI CATIONLDL less than 100 mg/dL OptimalLDL 100-129 mg/dL Near or above optimalLDL 130-159 mg/dL Borderline highLDL 160-189 mg/dL HighLDL greater than 189 mg/dL Very high Cholesterol in VLDL Calc [Ma ss/Vol]Ordered By: Mick Branch on 04-30-2024 Cholesterol in VLDL [Mass/Vol] Cholesterol in VLDL [Mass/volume] in Serum or Plasma by calculation [facility] Comprehensive Metabolic Pane ross 04-30-2024 Albumin [Mass/Vol] 3.5 g/dL Normal 3.5-5.7 [facility] Comment on above: Performed By: #### A FPTM #### [facility] , #### PSAS, TSH3 wRFLX, CMP, PT, LIPID #### [facility] [address] Albumin/Globulin [Mass ratio] 1.3 {ratio} Normal [facility] Comment on above: Performed By: #### A FPTM #### [facility] , #### PSAS, TSH3 wRFLX, CMP, PT, LIPID #### [facility] [address] [place] [address] ALP [Catalytic activity/Vol] 122 U/L High 34-104 [facility] Comment on above: Performed By: #### A FPTM #### [facility] , #### PSAS, TSH3 wRFLX, CMP, PT, LIPID #### [facility] [address] [place] [address] ALT [Catalytic activity/Vol] 40 U/L Normal 7-52 [facility] Comment on above: Performed By: #### A FPTM #### [facility] , #### PSAS, TSH3 wRFLX, CMP, PT, LIPID #### [facility] [address] [place] [address] Anion gap [Moles/Vol] 4.9 mmol/L Low 6.0-15.0 [facility] Comment on above: Performed By: #### A FPTM #### [facility] , #### PSAS, TSH3 wRFLX, CMP, PT, LIPID #### [facility] [address] [place] [address] AST [Catalytic activity/Vol] 46 U/L High 13-39 [facility] Comment on above: Performed By: #### A FPTM #### [facility] , #### PSAS, TSH3 wRFLX, CMP, PT, LIPID #### [facility] [address] [place] [address] Bilirubin [Mass/Vol] 0.7 mg/dL Normal 0.3-1.0 [facility] Comment on above: Performed By: #### A FPTM #### [facility] , #### PSAS, TSH3 wRFLX, CMP, PT, LIPID #### [facility] [address] [place] [address] Calcium [Mass/Vol] 8.8 mg/dL Normal 8.6-10.3 [facility] Comment on above: Performed By: #### A FPTM #### [facility] , #### PSAS, TSH3 wRFLX, CMP, PT, LIPID #### [facility] [address] [place] [address] Chloride [Moles/Vol] 109 mmol/L High 98-107 [facility] Comment on above: Performed By: #### A FPTM #### [facility] , #### PSAS, TSH3 wRFLX, CMP, PT, LIPID #### [address] CO2 [Moles/Vol] 31.4 mmol/L High 21.0-31.0 [facility] Comment on above: Performed By: #### A FPTM #### [facility] , #### PSAS, TSH3 wRFLX, CMP, PT, LIPID #### [address] Creatinine [Mass/Vol] 0.91 mg/dL Normal 0.70-1.30 [facility] Comment on above: Performed By: #### A FPTM #### [facility] , #### PSAS, TSH3 wRFLX, CMP, PT, LIPID #### [address] GFR/1.73 sq M.predicted MDRD (S/P/Bld) [Vol rate/Area] mL/min/{1.73_m2} Normal [facility] Comment on above: Performed By: #### A FPTM #### [facility] , #### PSAS, TSH3 wRFLX, CMP, PT, LIPID #### [facility] [address] [place] [address] Globulin (S) [Mass/Vol] 2.7 g/dL Normal [facility] Comment on above: Performed By: #### A FPTM #### [facility] , #### PSAS, TSH3 wRFLX, CMP, PT, LIPID #### [address] Glucose [Mass/Vol] 82 mg/dL Normal 70-100 [facility] Comment on above: Result Comment: [facility] Glucose Reference Range is dependent on time and content of last meal. Glucose of more than 200 mg/dL in a nonstressed, ambulatory subject supports the diagnosis of Diabetes Mellitus. ADA recommended reference range Performed By: #### A FPTM #### [facility] , #### PSAS, TSH3 wRFLX, CMP, PT, LIPID #### [address] Potassium [Moles/Vol] 4.3 mmol/L Normal 3.5-5.1 [facility] Comment on above: Performed By: #### A FPTM #### [facility] , #### PSAS, TSH3 wRFLX, CMP, PT, LIPID #### [address] Protein [Mass/Vol] 6.2 g/dL Low 6.4-8.9 [facility] Comment on above: Performed By: #### A FPTM #### [facility] , #### PSAS, TSH3 wRFLX, CMP, PT, LIPID #### [address] Sodium [Moles/Vol] 141 mmol/L Normal 136-145 [facility] Comment on above: Performed By: #### A FPTM #### [facility] , #### PSAS, TSH3 wRFLX, CMP, PT, LIPID #### [place] [address] [place] Urea nitrogen [Mass/Vol] 18 mg/dL Normal 7-25 [facility] Comment on above: Performed By: #### A FPTM #### [facility] , #### PSAS, TSH3 wRFLX, CMP, PT, LIPID #### [address] [place] [address] [facility] Creatinine [Mass/volume] in Serum or PlasmaOrdered By: Mick Branch on 04-30-2024 Creatinine [Mass/Vol] Creatinine [Mass/v olume] in Serum or Plasma 0.70-1.30 [facility] Globulin Calc (S) [Mass/Vol] Ordered By: Mick Branch on 04-30-2024 Globulin (S) [Mass/Vol] Serum globulin measurement by calculation (mass/volume) [facility] Glucose [Mass/volume] in Ser um or PlasmaOrdered By: Mick Branch on 04-30-2024 Glucose [Mass/Vol] Glucose [Mass/volume ] in Serum or Plasma 70-100 [facility] Comment on above: ADA recommended [...] in Platelet poor plasma by Coagulation assay [facility] Comment on above: INR Therapeutic Rang e [...] [Mass/Vol] 142 mg/dL Normal 140-200 [facility] Comment on above: Result Comment: Chol less than 200 mg/dl low risk Chol 201-239 mg/dl borderline risk Chol 240 mg/dl and greater high risk Performed By: #### A FPTM #### [facility] , #### PSAS, TSH3 wRFLX, CMP, PT, LIPID #### [facility] [address] [place] [id number] [facility] Cholesterol in HDL [Mass/Vol] 42 mg/dL Normal 23-92 [facility] Comment on above: Result Comment: HDL CHOL ATP-III CLASSIFICATION Cardiovascular Risk HDL > or equal to 60 mg/dL LOW HDL < 40 mg/dL HIGH Performed By: #### A FPTM #### [facility] , #### PSAS, TSH3 wRFLX, CMP, PT, LIPID #### [address] Cholesterol.total/Chol esterol in HDL [Mass ratio] 3.4 {ratio} Normal <5.0 [facility] Comment on above: Performed By: #### A FPTM #### [facility] , #### PSAS, TSH3 wRFLX, CMP, PT, LIPID #### [address] LDL Cholesterol,Calculated 67 mg/dL Normal 0-100 [facility] Comment on above: Result Comment: LDL ATP III CLASSIFICATION LDL less than 100 mg/dL Optimal LDL 100-129 mg/dL Near or above optimal LDL 130-159 mg/dL Borderline high LDL 160-189 mg/dL High LDL greater than 189 mg/dL Very high Performed By: #### A FPTM #### [facility] , #### PSAS, TSH3 wRFLX, CMP, PT, LIPID #### [address] Triglyceride w/Reflex 166 mg/dL High 0-149 [facility] Comment on above: Result Comment: TRIG ATP III CLASSIFICATION TRIG less than 150 mg/dL Normal TRIG 150-199 mg/dL Borderline high TRIG 200-500 mg/dL High TRIG greater than 500 mg/dL Very high Standard traceable to the Center for Disease Conrtrol and Prevention (CDC) test method. Performed By: #### A FPTM #### [facility] , #### PSAS, TSH3 wRFLX, CMP, PT, LIPID #### [address] VLDL CHOLESTEROL 33 mg/dL Normal [facility] Comment on above: Performed By: #### A FPTM #### [facility] , #### PSAS, TSH3 wRFLX, CMP, PT, LIPID #### [facility] [address] No Panel InformationOrdered By: Mick Branch on 04-30-2024 Estimated GFR (CKD-EPI) > 60.0 mL/Min [facility] Creatinine Clearance (Chem N/A [facility] PSA Screen (Yearly Only)on 0 04-30-2024 PSA Screen (Yearly Only) 0.600 ng/mL Normal 0.000-4.00 0 [facility] Comment on above: Result Comment: Seri al tumor marker results determined by assays using different manufacturers or methods may not be comparable. [facility] tin plater and method: [employer]arix DXI, CHEMILUMINESCENT IMMUNOASSAY. PERFORMED BY: [place] [address] PATHOLOGIST PUMP ERECTOR HELPER LUCIUS IRELAND M.D. Performed By: #### A FPTM #### [facility] , #### PSAS, TSH3 wRFLX, CMP, PT, LIPID #### [facility] [address] Potassium [Moles/volume] in Serum or PlasmaOrdered By: Mick Branch on 04-30-2024 Potassium [Moles/Vol] Potassium [Moles/v olume] in Serum or Plasma 3.5-5.1 [facility] Prostate specific Ag [Mass/v olume] in Serum or PlasmaOrdered By: Mick Branch on 04-30-2024 Prostate specific Ag [Mass/Vol] Prostate specific Ag [Mass/volume] in Serum or Plasma 0.000-4.00 0 [facility] Comment on above: Serial tumor marker results determined by assays using different manufacturers or methods may not be comparable.[facility] tin plater and method:[employer]ix DXI, CHEMILUMINESCENT IMMUNOASSAY. Protein [Mass/volume] in Ser um or PlasmaOrdered By: Mick Branch on 04-30-2024 Protein [Mass/Vol] Protein [Mass/volume ] in Serum or Plasma Low 6.4-8.9 [facility] Prothrombin Time INRon 04-30 INR Coag (PPP) [Relative time] 1.2 {INR} Normal [facility] Comment on above: Result Comment: [...] heart valves: 3 - 4.5 PERFORMED BY: [place] [address] PATHOLOGIST PUMP ERECTOR HELPER LUCIUS IRELAND M.D. Performed By: #### A FPTM #### [facility] , #### PSAS, TSH3 wRFLX, CMP, PT, LIPID #### [address] PT Coag (PPP) [Time] 13.8 s High 9.0-12.9 [facility] Comment on above: Result Comment: A he matocrit value greater than 55% may lead to inaccurate results in coagulation testing. Patients having hematocrit values >55% require a special collection tube for coagulation studies. Please contact the laboratory at [phone] for redraw instructions. Performed By: #### A FPTM #### [facility] , #### PSAS, TSH3 wRFLX, CMP, PT, LIPID #### [place] [id number] [facility] Prothrombin time (PT)Ordered By: Mick Branch on 04-30-2024 PT Coag (PPP) [Time] Prothrombin time (PT) High 9.0- 12.9 [facility] Comment on above: A hematocrit value g reater than 55% may lead to inaccurate results in coagulation testing. Patients having hematocrit values >55% require a special collection tube for coagulation studies. Please contact the laboratory at [phone] for redraw instructions. Serum or plasma albumin/glob ulin mass ratioOrdered By: Mick Branch on 04-30-2024 Albumin/Globulin [Mass ratio] Serum or plasma albumin/globulin mass ratio [facility] Serum or plasma [id number] protein tumor marker measurement (mass/volume)Ordered By: Mick Branch on 04-30-2024 AFP.tumor marker [Mass/Vol] Serum or plasma [id number] tumor marker measurement (mass/volume) 0.0-8.4 [facility] Comment on above: [facility] El ectrochemiluminescence Immunoassay(ECLIA)Values obtained with different assay methods or kits cannotbe used interchangeably. Results cannot be interpreted asabsolute evidence of the presence or absence of malignantdisease.This test is not interpretable in females.Performed at: [place] [id number] Director: Charlie Klein PhD, Phone: [phone] Serum or plasma anion gap de terminationOrdered By: Mick Branch on 04-30-2024 Anion gap [Moles/Vol] Serum or plasma an ion gap determination Low 6.0-15.0 [facility] Serum or plasma total choles terol/high density lipoprotein (HDL) cholesterol mass ratOrdered By: Mick Branch on 04-30-2024 Cholesterol.total/Chol esterol in HDL [Mass ratio] Serum or plasma total cholesterol/high density lipoprotein (HDL) cholesterol mass rat <5.0 [facility] Sodium [Moles/volume] in Ser um or PlasmaOrdered By: Mick Branch on 04-30-2024 Sodium [Moles/Vol] Sodium [Moles/volume ] in Serum or Plasma 136-145 [facility] Thyroid Stim Hormone w/Rflxo n 04-30-2024 Thyroid Stim Hormone w/Rflx 3.07 u[iU]/mL Normal 0.45-5.33 [facility] Comment on above: Result Comment: PERF ORMED BY: [facility] [address] [place] [address] PATHOLOGIST PUMP ERECTOR HELPER LUCIUS IRELAND M.D. Performed By: #### A FPTM #### [facility] , #### PSAS, TSH3 wRFLX, CMP, PT, LIPID #### [facility] [address] Thyrotropin [Units/volume] i n Serum or PlasmaOrdered By: Mick Branch on 04-30-2024 TSH Qn Thyrotropin [Units/volume] in Serum or Plasma 0.45-5.33 [facility] Triglyceride [Mass/volume] i n Serum or PlasmaOrdered By: Mick Branch on 04-30-2024 Triglyceride [Mass/Vol] Triglyceride [Mass/volume] in Serum or Plasma High 0-149 [facility] Comment on above: TRIG ATP III CLASSIF ICATIONTRIG less than 150 mg/dL NormalTRIG 150-199 mg/dL Borderline highTRIG 200-500 mg/dL High TRIG greater than 500 mg/dL Very highStandard traceable to the Center for Disease Conrtrol and Prevention (CDC) test method. Urea nitrogen [Mass/volume] in Serum or PlasmaOrdered By: Mick Branch on 04-30-2024 Urea nitrogen [Mass/Vol] Urea nitrogen [Mass/volume] in Serum or Plasma 10-16 [facility] ALL CBC WITH AUTO DIFFon Erythrocyte distribution width (RBC) [Ratio] 13.6 % 11.0 - 15.0 % [facility] Hematocrit (Bld) [Volume fraction] 40 % Low 42.0 - 54.0 % [facility] Hemoglobin (Bld) [Mass/Vol] 13 g/dL Low 14.0 - 18.0 g/dL [facility] Interpretation and review of laboratory results Abnormal [facility] MCH (RBC) [Entitic mass] 31.6 pg 25.9 - 34.0 pg [facility] MCHC (RBC) [Mass/Vol] 32.5 g/dL 29.9 - 35.2 g/dL [facility] MCV (RBC) [Entitic vol] 97.1 fL High 80.0 - 94.0 fL [facility] Platelet mean volume (Bld) [Entitic vol] 11.1 fL 9.5 - 13.5 fL [facility] TBH PLT 84 Low [facility] TBH RBC 4.12 Low [facility] TBH WBC 4.9 [facility] ECG 12 [place] 01-01-2024 Sinus bradycardia, P VC, sinus arrhythmia, anterolateral AL age-indeterminate, abnormal ECG [facility] Work Phone: [facility] Work Phone: ALL CBC WITH AUTO DIFFon Erythrocyte distribution width (RBC) [Ratio] 18.3 % High 11.0 - 15.0 % [facility] Hematocrit (Bld) [Volume fraction] 38.3 % Low 42.0 - 54.0 % [facility] Hemoglobin (Bld) [Mass/Vol] 12.2 g/dL Low 14.0 - 18.0 g/dL [facility] Interpretation and review of laboratory results Abnormal [facility] MCH (RBC) [Entitic mass] 29.5 pg 25.9 - 34.0 pg [facility] MCHC (RBC) [Mass/Vol] 31.9 g/dL 29.9 - 35.2 g/dL [facility] MCV (RBC) [Entitic vol] 92.5 fL 80.0 - 94.0 fL [facility] Platelet mean volume (Bld) [Entitic vol] 11.1 fL 9.5 - 13.5 fL [facility] TB PLT 63 Low [facility] TBH RBC 4.14 Low [facility] TB WBC 3.1 Low [facility] No Panel InformationOrdered By: Mick Branch on 10-23-2023 Miscellaneous Pathology Test See comment [facility] Comment on above: See report. Scanned copy available in EMR. Alanine aminotransferase [En zymatic activity/volume] in Serum or PlasmaOrdered By: Mick Branch on 09-17-2023 ALT [Catalytic activity/Vol] 43 U/L 7-52 [facility] Albumin [Mass/volume] in Ser um or Plasma by Bromocresol green (BCG) dye binding methoOrdered By: Mick Branch on 09-17-2023 Albumin BCG dye [Mass/Vol] 3.9 g/dL 3.5-5.7 [facility] Alkaline phosphatase [Enzyma tic activity/volume] in Serum or PlasmaOrdered By: Mick Branch on 09-17-2023 ALP [Catalytic activity/Vol] 138 U/L High 34-104 [facility] Anisocytosis LM Ql (Bld)Orde red By: Mick Branch on 09-17-2023 Anisocytosis Ql (Bld) Slight [facility] Aspartate aminotransferase [ Enzymatic activity/volume] in Serum or PlasmaOrdered By: Mick Branch on 09-17-2023 AST [Catalytic activity/Vol] 49 U/L High 13-39 [facility] Band form neutrophils/100 WB C Manual cnt (Bld)Ordered By: Mick Branch on 09-17-2023 Band form neutrophils/100 WBC (Bld) 1 % 0-5 [facility] Basophils Auto (Bld) [#/Vol] Ordered By: Mick Branch on 09-17-2023 Basophils (Bld) [#/Vol] N/A [facility] Basophils/100 WBC Auto (Bld) Ordered By: Mick Branch on 09-17-2023 Basophils/100 WBC (Bld) N/A [facility] Bilirubin.total [Mass/volume ] in Serum or PlasmaOrdered By: Mick Branch on 09-17-2023 Bilirubin [Mass/Vol] 0.6 mg/dL 0.3-1.0 [facility] Calcium [Mass/volume] in Ser um or PlasmaOrdered By: Mick Branch on 09-17-2023 Calcium [Mass/Vol] 8.8 mg/dL 8.6-10.3 [facility] Carbon dioxide, total [Moles /volume] in Serum or PlasmaOrdered By: Mick Branch on 09-17-2023 CO2 [Moles/Vol] 27.5 mmol/L 21.0-31.0 [facility] Chloride [Moles/volume] in S lilly or PlasmaOrdered By: Mick Branch on 09-17-2023 Chloride [Moles/Vol] 111 mmol/L High 98-107 [facility] Creatinine [Mass/volume] in Serum or PlasmaOrdered By: Mick Branch on 09-17-2023 Creatinine [Mass/Vol] 0.94 mg/dL 0.70-1.[address] [facility] Eosinophils Auto (Bld) [#/Vo l]Ordered By: Mick Branch on 09-17-2023 Eosinophils (Bld) [#/Vol] N/A [facility] Eosinophils/100 WBC Auto (Bl d)Ordered By: Mick Branch on 09-17-2023 Eosinophils/100 WBC (Bld) N/A [facility] Eosinophils/100 WBC Manual c nt (Bld)Ordered By: Mick Branch on 09-17-2023 Eosinophils/100 WBC (Bld) 4 % High 1-3 [facility] Erythrocyte distribution wid th Auto (RBC) [Ratio]Ordered By: Mick Branch on 09-17-2023 Erythrocyte distribution width (RBC) [Ratio] 17.4 % High 12.0-14.8 [facility] Ferritin [Mass/volume] in Se rum or PlasmaOrdered By: Mick Branch on 09-17-2023 Ferritin [Mass/Vol] 23.4 ng/mL Low 23.9-336.[address] [facility] Globulin Calc (S) [Mass/Vol] Ordered By: Mick Branch on 09-17-2023 Globulin (S) [Mass/Vol] 2.7 g/dL [facility] Glucose [Mass/volume] in Ser um or PlasmaOrdered By: Mick Branch on 09-17-2023 Glucose [Mass/Vol] 78 mg/dL 70-100 [facility] Comment on above: ADA recommended refe rence rangeRandom Glucose Reference Range is dependent on time and content of last meal. Glucose of more than 200 mg/dL in a nonstressed, ambulatory subject supports the diagnosis of Diabetes Mellitus. Hematocrit Auto (Bld) [Volum e fraction]Ordered By: Mick Branch on 09-17-2023 Hematocrit (Bld) [Volume fraction] 37.4 % Low 38.8-50.0 [facility] Hemoglobin [Mass/volume] in BloodOrdered By: Mick Branch on 09-17-2023 Hemoglobin (Bld) [Mass/Vol] 12.1 g/dL Low 13.0-17.0 [facility] INR in Platelet poor plasma by Coagulation assayOrdered By: Mick Branch on 06-25-2024 INR Coag (PPP) [Relative time] 1.1 {INR} [facility] Comment on above: INR Therapeutic Rang e [...] on 09-17-2023 Iron [Mass/Vol] 52 ug/dL 50-212 [facility] Iron binding capacity [Mass/ volume] in Serum or PlasmaOrdered By: Mick Branch on 09-17-2023 Iron binding capacity [Mass/Vol] 496 ug/dL High 255-450 [facility] Iron saturation [Mass Fracti on] in Serum or PlasmaOrdered By: Mick Branch on 09-17-2023 Iron saturation [Mass fraction] 10.5 % Low 20-50 [facility] Leukocytes [#/volume] correc britt for nucleated erythrocytes in Blood by Automated counOrdered By: Mick Branch on 09-17-2023 WBC corrected for nucl RBC Auto (Bld) [#/Vol] 3.2 10*3/uL Low 4.1-10.5 [facility] Lymphocytes Auto (Bld) [#/Vo l]Ordered By: Mick Branch on 09-17-2023 Lymphocytes (Bld) [#/Vol] N/A [facility] Lymphocytes/100 WBC Auto (Bl d)Ordered By: Mick Branch on 09-17-2023 Lymphocytes/100 WBC (Bld) N/A [facility] Lymphocytes/100 WBC Manual c nt (Bld)Ordered By: Mick Branch on 09-17-2023 Lymphocytes/100 WBC (Bld) 25 % 18-42 [facility] MCH Auto (RBC) [Entitic mass ]Ordered By: Mick Branch on 09-17-2023 MCH (RBC) [Entitic mass] 27.4 pg Low 27.5-35.2 [facility] MCHC Auto (RBC) [Mass/Vol]Or dered By: Mick Branch on 09-17-2023 MCHC (RBC) [Mass/Vol] 32.2 g/dL Low 32.5-35.[address] [facility] MCV Auto (RBC) [Entitic vol] Ordered By: Mick Branch on 09-17-2023 MCV (RBC) [Entitic vol] 85.0 fL 83.5-101 [facility] Macrocytes LM Ql (Bld)Ordere d By: Mick Branch on 09-17-2023 Macrocytes Ql (Bld) Slight [facility] Microcytes LM Ql (Bld)Ordere d By: Mick Branch on 09-17-2023 Microcytes Ql (Bld) Slight [facility] Monocytes Auto (Bld) [#/Vol] Ordered By: Mick Branch on 09-17-2023 Monocytes (Bld) [#/Vol] N/A [facility] Monocytes/100 WBC Auto (Bld) Ordered By: Mick Branch on 09-17-2023 Monocytes/100 WBC (Bld) N/A [facility] Monocytes/100 WBC Manual cnt (Bld)Ordered By: Mick Branch on 09-17-2023 Monocytes/100 WBC (Bld) 8 % 2-11 [facility] Neutrophils Auto (Bld) [#/Vo l]Ordered By: Mick Branch on 09-17-2023 Neutrophils (Bld) [#/Vol] N/A [facility] Neutrophils/100 WBC Auto (Bl d)Ordered By: Mick Branch on 09-17-2023 Neutrophils/100 WBC (Bld) N/A [facility] No Panel InformationOrdered By: Mick Branch on 09-17-2023 Estimated GFR (CKD-EPI) > 60.0 mL/Min [facility] Creatinine Clearance (Chem N/A [facility] Nucleated erythrocytes [Pres ence] in Blood by Automated countOrdered By: Mick Branch on 09-17-2023 Nucleated RBC Auto Ql (Bld) N/A [facility] Ovalocyte detectionOrdered B y: Mick Branch on 09-17-2023 Ovalocytes LM Ql (Bld) Slight [facility] Platelet adequacy [Presence] in Blood by Light microscopyOrdered By: Mick Branch on 09-17-2023 Platelets LM Ql (Bld) Decreased Normal [facility] Platelet mean volume Auto (B ld) [Entitic vol]Ordered By: Mick Branch on 09-17-2023 Platelet mean volume (Bld) [Entitic vol] 8.9 fL 6.6-10.1 [facility] Platelet morphology finding [Identifier] in BloodOrdered By: Mick Branch on 09-17-2023 Platelet morphology finding Nom (Bld) Normal Normal [facility] Platelets Auto (Bld) [#/Vol] Ordered By: Mick Branch on 09-17-2023 Platelets (Bld) [#/Vol] 112 10*3/uL Low 150-450 [facility] Poikilocytosis [Presence] in Blood by Light microscopyOrdered By: Mick Branch on 09-17-2023 Poikilocytosis LM Ql (Bld) Slight [facility] Potassium [Moles/volume] in Serum or PlasmaOrdered By: Mick Branch on 09-17-2023 Potassium [Moles/Vol] 4.3 mmol/L 3.5-5.[address] [facility] Protein [Mass/volume] in Ser um or PlasmaOrdered By: Mick Branch on 09-17-2023 Protein [Mass/Vol] 6.6 g/dL 6.4-8.9 [facility] Prothrombin time (PT)Ordered By: Mick Branch on 09-17-2023 PT Coag (PPP) [Time] 13.1 s High 9.0-12.9 [facility] Comment on above: A hematocrit value g reater than 55% may lead to inaccurate results in coagulation testing. Patients having hematocrit values >55% require a special collection tube for coagulation studies. Please contact the laboratory at [phone] for redraw instructions. RBC Auto (Bld) [#/Vol]Ordere d By: Mick Branch on 09-17-2023 RBC (Bld) [#/Vol] 4.40 10*6/uL 3.90-5.[address] [facility] RBC morphologyOrdered By: Kimberly rBanch on 09-17-2023 RBC morphology finding Nom (Bld) N/A [facility] Segmented neutrophils/100 WB C Manual cnt (Bld)Ordered By: Mick Branch on 09-17-2023 Segmented neutrophils/100 WBC (Bld) 63 % 50-70 [facility] Serum or plasma albumin/glob ulin mass ratioOrdered By: Mick Branch on 09-17-2023 Albumin/Globulin [Mass ratio] 1.4 {ratio} [facility] Serum or plasma [id number] protein tumor marker measurement (mass/volume)Ordered By: Mick Branch on 09-17-2023 AFP.tumor marker [Mass/Vol] 3.0 ng/mL 0.0-8.4 [facility] Comment on above: [facility] El ectrochemiluminescence Immunoassay(ECLIA)Values obtained with different assay methods or kits cannotbe used interchangeably. Results cannot be interpreted asabsolute evidence of the presence or absence of malignantdisease.This test is not interpretable in females.Performed at: [facility] [id number] Director: Charlie Klein PhD, Phone: [phone] Serum or plasma anion gap de terminationOrdered By: Mick Branch on 09-17-2023 Anion gap [Moles/Vol] 8.8 mmol/L 6.0-15.[address] [facility] Sodium [Moles/volume] in Ser um or PlasmaOrdered By: Mick Branch on 09-17-2023 Sodium [Moles/Vol] 143 mmol/L 136-145 [facility] Transferrin [Mass/volume] in Serum or PlasmaOrdered By: Mick Branch on 09-17-2023 Transferrin [Mass/Vol] 354 mg/dL 203-362 [facility] Urea nitrogen [Mass/volume] in Serum or PlasmaOrdered By: Mick Branch on 09-17-2023 Urea nitrogen [Mass/Vol] 20 mg/dL 7-25 [facility] WBC Auto (Bld) [#/Vol]Ordere d By: Mick Branch on 09-17-2023 WBC (Bld) [#/Vol] 3.4 10*3/uL Low 4.1-10.5 [facility] ECG 12 Leadon 06-20-2023 Sinus rhythm, rightw stephanie axis, bigeminal PVCs, anteroseptal infarction pattern age indeterminant, abnormal ECG [facility] Work Phone: Albumin [Mass/volume] in Ser um or PlasmaOrdered By: Zoila Castorena on 08-08-2022 Albumin [Mass/Vol] 3.0 g/dL 2.9-4.4 [facility] Folate [Mass/volume] in Seru m or PlasmaOrdered By: Zoila Castorena on 08-08-2022 Folate [Mass/Vol] 40.0 ng/mL >5.9 [facility] Comment on above: Folate reference ran ge: >5.9 ng/mlThe WHO technical consultation on folate and vitamin [id number] has determined that folate concentrations lessthan 4 ng/ml are considered deficient. Haptoglobin [Mass/volume] in Serum or PlasmaOrdered By: Zoila Castorena on 08-08-2022 Haptoglobin [Mass/Vol] 58 mg/dL 44-215 [facility] Lactate dehydrogenase [Enzym atic activity/volume] in Serum or Plasma by Lactate to pyOrdered By: Zoila Castorena on 08-08-2022 LDH Lactate to pyruvate reaction [Catalytic activity/Vol] 221 U/L 140-271 [facility] No Panel InformationOrdered By: Zoila Castorena on 08-08-2022 Protein Electrophoresis M-Jose Not observed g/dL Not Observed [facility] Protein Electrophoresis Note See comment . [facility] Comment on above: Protein electrophore sis scan will follow via computer,mail, or accounts payable clerk delivery.Performed at: [address] [id number] Director: Charlie Klein PhD, Phone: [phone] Protein [Mass/volume] in Ser um or PlasmaOrdered By: Zoila Castorena on 05-17-2023 Protein [Mass/Vol] 6.0 g/dL 6.0-8.5 [facility] Serum globulin measurement ( mass/volume)Ordered By: Zoila Castorena on 08-08-2022 Globulin (S) [Mass/Vol] 3.0 g/dL 2.2-3.9 [facility] Serum or plasma albumin/glob ulin mass ratioOrdered By: Zoila Castorena on 08-08-2022 Albumin/Globulin [Mass ratio] 1.0 {ratio} 0.7-1.7 [facility] Serum or plasma alpha 1 glob ulin measurement by electrophoresis (mass/volume)Ordered By: Zoila Castorena on 08-08-2022 Alpha 1 globulin Elph [Mass/Vol] 0.2 g/dL 0.0-0.4 [facility] Serum or plasma alpha 2 glob ulin measurement by electrophoresis (mass/volume)Ordered By: Zolia Castorena on 08-08-2022 Alpha 2 globulin Elph [Mass/Vol] 0.7 g/dL 0.4-1.0 [facility] Serum or plasma beta globuli n measurement by electrophoresis (mass/volume)Ordered By: Zoila Castorena on 08-08-2022 Beta globulin Elph [Mass/Vol] 1.2 g/dL 0.7-1.3 [facility] Serum or plasma gamma globul in measurement by electrophoresis (mass/volume)Ordered By: Zoila Castorena on 08-08-2022 Gamma globulin Elph [Mass/Vol] 1.0 g/dL 0.4-1.8 [facility] Vitamin B12 ser/plasOrdered By: Zoila Castorena on 08-08-2022 Cobalamin (Vitamin B12) [Mass/Vol] 481 pg/mL 180-914 [facility] ECHOCARDIO M/2D COMPLETEon 0 11-08-2021 ECHOCARDIO M/2D COMPLETE Patient: PANKAJ PAYNE Exam Date: 11/08/2021 : 1945 Gender:M Ordering : DR KARL MENON M.D. Admission #: [id number] Family : DR FRANTZ CONLEY M.D. Order #: [id number] CLICK HERE TO VIEW EXAM ECHOCARDIOGRAM REPORT [...] Menon M.D. on 11/08/2021 at 16:55 Normal [facility] Creatinine and Glomerular fi ltration rate.predicted panel (S/P/Bld)Ordered By: Frantz Conley on 10-10-2021 Creatinine [Mass/Vol] 1.11 mg/dL 0.64-1.[address] [facility] Estimated glomerular filtrat ion rate (GFR) non- AmericanOrdered By: Frantz Conley on 10-10-2021 GFR/1.73 sq M.predicted among non-blacks MDRD (S/P/Bld) [Vol rate/Area] > 60 mL/Min [facility] No Panel InformationOrdered By: Frantz Conley on 10-10-2021 Estimated GFR () > 60 mL/Min [facility] Comment on above: GFR estimated refere nce range: According to KDOQI guidelines, <60 ml/min/1.73m2 is sufficient to diagnose a patient with chronic kidney disease. Pharmacy Creatinine Clearance (Chem N/A [facility] Serum or plasma urea nitroge n measurement (mass/volume)Ordered By: Frantz Conley on 10-10-2021 Urea nitrogen [Mass/Vol] 16 mg/dL 12-15 [facility] COVID-19 Positive/NegativeOr dered By: Mick Branch on 09-15-2021 SARS-CoV-2 (COVID-19) N gene GÓMEZ+probe Ql (Resp) Negative Negative [facility] Comment on above: Testing for SARS-CoV -2 by RT-PCR This test was developed and its performance characteristics determined by [employer] ([employer]) and validated at the [facility]. This test has not been FDA [...] (cont.) Normal [facility] [place] Comment on above: Result Comment: Aver age GFR for 70 or more years old: 75 mL/min/1.73sq m Chronic Kidney Disease: <60 mL/min/1.73sq m Kidney failure: <15 mL/min/1.73sq m eGFR calculated using average adult body mass. Additional eGFR calculator available at: http://www.[employer]/multiple_crcl_2011.htm Performed By: #### C DP, BMPX #### [place] [address] [employer] Conveyor Line: Tony Yanez MD Anion gap [Moles/Vol] 9 mmol/L Normal 9-17 [facility] Comment on above: Performed By: #### C DP, BMPX #### [place] [address] [employer] Line: Tony Yanez MD Calcium [Mass/Vol] 9.0 mg/dL Normal 8.6-10.4 [facility] [place] Comment on above: Performed By: #### C DP, BMPX #### [facility] [employer] [address] [place] [address] Inspector Conveyor Line: Tony Yanez MD Chloride [Moles/Vol] 107 mmol/L Normal 98-107 [facility] Comment on above: Performed By: #### C DP, BMPX #### [facility] [employer] [address] [place] [address] Inspector [employer]or Line: Tony Yanez MD CO2 [Moles/Vol] 23 mmol/L Normal 20-31 [facility] [place] Comment on above: Performed By: #### C DP, BMPX #### [facility] [place] [facility] [employer] [address] [place] [address] [employer] Line: Tony Yanez MD Creatinine [Mass/Vol] 0.83 mg/dL Normal 0.70-1.20 [facility] Comment on above: Performed By: #### C DP, BMPX #### [facility] [place] [facility] [address] [place] [address] [employer]: Tony Yanez MD GFR, Amer >60 Normal >60 [place] [facility] Comment on above: Performed By: #### C DP, BMPX #### [facility] [employer] [address] [place] [address] [employer] Line: Tony Yanez MD GFR,non Amer >60 Normal >60 [facility] Comment on above: Performed By: #### C DP, BMPX #### [facility] [employer] [address] [place] [address] [employer] Line: Tony Yanez MD Glucose [Mass/Vol] 91 mg/dL Normal 70-99 [facility] [place] Comment on above: Performed By: #### C DP, BMPX #### [address] [address] Inspector Conveyor Line: Tony Yanez MD Potassium [Moles/Vol] 4.3 mmol/L Normal 3.7-5.3 [facility] Comment on above: Performed By: #### C DP, BMPX #### [facility] [place] [facility] [employer] [address] [place] [address] Inspector [employer]or Line: Tony Yanez MD Sodium [Moles/Vol] 139 mmol/L Normal 135-144 [facility] [place] Comment on above: Performed By: #### C DP, BMPX #### [facility] [place] [facility] [employer] [address] [place] [address] [employer]: Tony Yanez MD Urea nitrogen [Mass/Vol] 17 mg/dL Normal 8-23 [facility] [place] Comment on above: Performed By: #### C DP, BMPX #### [facility] [address] [place] [address] Inspector Conveyor Line: Tony Yanez MD Basic Metabolic Panel w/ Ref nehemias to MGon 08-17-2021 Anion gap [Moles/Vol] 9 mmol/L 9 - 17 mmol/L [employer] [facility] Calcium [Mass/Vol] 9.0 mg/dL 8.6 - 10. 4 mg/dL [facility] Chloride [Moles/Vol] 107 mmol/L 98 - 10 7 mmol/L [employer] CO2 [Moles/Vol] 23 mmol/L 20 - 31 mmol/L [facility] Creatinine [Mass/Vol] 0.83 mg/dL 0.70 - 1.20 mg/dL [facility] GFR >60 >60 mL/min [facility] GFR Non- >60 >60 mL/min [facility] GFR/1.73 sq M.predicted MDRD (S/P/Bld) [Vol rate/Area] [facility] Comment on above: Average GFR for 70 o r more years old: 75 mL/min/1.73sq m Chronic Kidney Disease: <60 mL/min/1.73sq m Kidney failure: <15 mL/min/1.73sq m eGFR calculated using average adult body mass. Additional eGFR calculator available at: http://www.[employer]/multiple_crcl_2011.htm Glucose [Mass/Vol] 91 mg/dL 70 - 99 mg/dL [facility] Potassium [Moles/Vol] 4.3 mmol/L 3.7 - 5.3 mmol/L [facility] Sodium [Moles/Vol] 139 mmol/L 135 - 144 mmol/L [employer] Urea nitrogen (BldV) [Mass/Vol] 17 mg/dL 8 - 23 mg/dL [employer] CBC with Auto Differentialon 08-17-2021 Absolute Eos # 0.11 [employer] [facility] Immature Granulocyte <0.03 [facility] Absolute Lymph # 1.[address] [facility] Absolute Roane # 0.53 [facility] Basophils (Bld) [#/Vol] 0.03 10*3/uL [facility] Basophils/100 WBC (Bld) 1 % 0 - 2 % [facility] Eosinophils/100 WBC (Bld) 2 % 1 - 4 % [facility] Hematocrit (Bld) [Volume fraction] 36.2 % Low 40.7 - 50.3 % [facility] Hemoglobin.gastrointes tinal spec 1 Ql (Stl) 12.1 g/dL Low 13.0 - 17.0 g/dL [facility] Immature granulocytes/100 WBC (Bld) 0 % 0 [facility] Interpretation and review of laboratory results Abnormal [facility] Lymphocytes/100 WBC (Bld) 22 % Low 24 - 43 % [facility] MCH (RBC) [Entitic mass] 31.1 pg 25.2 - 33.5 pg [facility] MCHC (RBC) [Mass/Vol] 33.4 g/dL 28.4 - 34.8 g/dL [facility] MCV (RBC) [Entitic vol] 93.1 fL 82.6 - 102.9 fL [facility] Monocytes/100 WBC (Bld) 11 % 3 - 12 % [facility] NRBC Automated 0.0 0.0 per 100 WBC [facility] Platelet distribution width (Bld) [Ratio] 13.2 % 11.8 - 14.4 % [facility] Platelet mean volume (Bld) [Entitic vol] 11.2 fL 8.1 - 13.5 fL [facility] Platelets (Bld) [#/Vol] 94 10*3/uL Low [facility] RBC (Bld) [#/Vol] 3.89 10*6/uL Low 4.21 - 5.77 m/uL [facility] Segmented neutrophils/100 WBC (Bld) 64 % 36 - 65 % [facility] Segs Absolute 3.14 [facility] WBC (Bld) [#/Vol] 4.9 10*3/uL [facility] CBC with Diffon 08-17-2021 Abs. Basophil 0.03 k/uL Normal 0.00-0.20 [facility] [place] Comment on above: Performed By: #### C DP, BMPX #### [address] [address] Inspector Con[employer]or Line: Tony Yanez MD Abs.Imm.Granulocyte <0.03 Normal 0.00-0.30 [facility] [place] Comment on above: Performed By: #### C DP, BMPX #### [place] [address] Inspector [employer]veyor Line: Tony Yanez MD Abs.Neutrophil (Seg) 3.14 k/uL Normal 1.50-8.10 [facility] Comment on above: Performed By: #### C DP, BMPX #### [address] [address] Inspector Conveyor Line: Tony Yanez MD Basophils/100 WBC (Bld) 1 % Normal 0-2 [facility] [place] Comment on above: Performed By: #### C DP, BMPX #### [address] [address] Inspector Conveyor Line: Tony Yanez MD Eosinophils (Bld) [#/Vol] 0.11 10*3/uL Normal 0.00-0.44 [facility] [place] Comment on above: Performed By: #### C DP, BMPX #### [address] [address] Inspector Conveyor Line: Tony Yanez MD Eosinophils/100 WBC (Bld) 2 % Normal 1-4 [facility] [place] Comment on above: Performed By: #### C DP, BMPX #### [facility] [employer] [address] [place] [address] Inspector Con[employer]or Line: Tony Yanez MD Erythrocyte distribution width (RBC) [Ratio] 13.2 % Normal 11.8-14.4 [facility] [place] Comment on above: Performed By: #### C DP, BMPX #### [address] [address] Inspector Conveyor Line: Tony Yanez MD Hematocrit (Bld) [Volume fraction] 36.2 % Low 40.7-50.3 [facility] [place] Comment on above: Performed By: #### C DP, BMPX #### [facility] [employer] [address] [place] [address] Inspector Conveyor Line: Tony Yanez MD Hemoglobin (Bld) [Mass/Vol] 12.1 g/dL Low 13.0-17.0 [facility] [place] Comment on above: Performed By: #### C DP, BMPX #### [address] [address] Inspector Conveyor Line: Tony Yanez MD Immature granulocytes/100 WBC (Bld) 0 % Normal 0 [facility] [place] Comment on above: Performed By: #### C DP, BMPX #### [place] [address] Inspector Conveyor Line: Tony Yanez MD Lymphocytes (Bld) [#/Vol] 1.10 10*3/uL Normal 1.10-3.70 [facility] [place] Comment on above: Performed By: #### C DP, BMPX #### [address] [address] Inspector Conveyor Line: Tony Yanez MD Lymphocytes/100 WBC (Bld) 22 % Low 24-43 [facility] [place] Comment on above: Performed By: #### C DP, BMPX #### [facility] [employer] [address] [place] [address] Inspector Conveyor Line: Tony Yanez MD MCH (RBC) [Entitic mass] 31.1 pg Normal 25.2-33.5 [facility] [place] Comment on above: Performed By: #### C DP, BMPX #### [address] [address] Inspector Conveyor Line: Tony Yanez MD MCHC (RBC) [Mass/Vol] 33.4 g/dL Normal 28.4-34.8 [facility] Comment on above: Performed By: #### C DP, BMPX #### [address] [address] Inspector Conveyor Line: Tony Yanez MD MCV (RBC) [Entitic vol] 93.1 fL Normal 82.6-102.9 [facility] [place] Comment on above: Performed By: #### C DP, BMPX #### [address] [address] Inspector Conveyor Line: Tony Yanez MD Monocytes (Bld) [#/Vol] 0.53 10*3/uL Normal 0.10-1.20 [facility] [place] Comment on above: Performed By: #### C DP, BMPX #### [address] [address] Inspector Conveyor Line: Tony Yanez MD Monocytes/100 WBC (Bld) 11 % Normal 3-12 [facility] [place] Comment on above: Performed By: #### C DP, BMPX #### [address] [address] Inspector Conveyor Line: Tony Yanez MD Neutrophil (Seg) 64 % Normal 36-65 [place] [facility] Comment on above: Performed By: #### C DP, BMPX #### [address] [address] Inspector Conveyor Line: Tony Yanez MD NRBC Automated 0.0 per 100 WBC Normal 0.0 [facility] [place] Comment on above: Performed By: #### C DP, BMPX #### [address] [address] Inspector Conveyor Line: Tony Yanez MD Platelet mean volume (Bld) [Entitic vol] 11.2 fL Normal 8.1-13.5 [facility] [place] Comment on above: Performed By: #### C DP, BMPX #### [address] [address] Inspector Conveyor Line: Tony Yanez MD Platelets (Bld) [#/Vol] 94 10*3/uL Low 138-453 [facility] [place] Comment on above: Performed By: #### C DP, BMPX #### [address] [address] Inspector Conveyor Line: Tony Yanez MD RBC (Bld) [#/Vol] 3.89 10*6/uL Low 4.21-5.77 [facility] [place] Comment on above: Performed By: #### C DP, BMPX #### [address] [address] Inspector Conveyor Line: Tony Yanez MD WBC (Bld) [#/Vol] 4.9 10*3/uL Normal 3.5-11.3 [facility] [place] Comment on above: Performed By: #### C DP, BMPX #### [address] [address] Inspector Conveyor Line: Tony Yanez MD CT FACIAL BONES WO [...] SYSTEM PROVIDED HISTORY: Impact with object riding jailer TECHNOLOGIST PROVIDED HISTORY: Impact with object riding jailer Decision Support Exception - unselect if not [...] result Normal [facility] [place] MRSA DNA Probe, Nasalon 07-24 MRSA, DNA, Nasal Negative NEGATIVE [facility] Comment on above: NEGATIVE: MRSA DNA n ot detected by nucleic acid amplification. Results should be used as an adjunct to nosocomial control efforts to identify patients needing enhanced precautions. The test is not intended to identify patients with staphylococcal infections. Results should not be used to guide or monitor treatment for MRSA infections. Specimen Description .NASAL SWAB [facility] MRSA, DNA, Nasalon MRSA, DNA, Nasal Negative Normal [facility] Comment on above: Result Comment: NEGA TIVE: MRSA DNA not detected by nucleic acid amplification. Results should be used as an adjunct to nosocomial control efforts to identify patients needing enhanced precautions. The test is not intended to identify patients with staphylococcal infections. Results should not be used to guide or monitor treatment for MRSA infections. Performed By: #### M RSANO #### [employer] [address] [place] [address] Inspector Conveyor Line: Tony Yanez MD Specimen Description .NASAL SWAB Normal [facility] Comment on above: Performed By: #### M RSANO #### [employer] [address] [place] [address] Inspector Conveyor Line: Tony Yanez MD CBC AUTO DIFFon 08-16-2021 BASO # 0.0 103/ul Normal 0.0-0.1 [facility] Comment on above: Performed By: #### C VDTBH #### [facility] [address] [place] [address] Dr. Natalya Arthur Basophils/100 WBC (Bld) 0.6 % Normal 0.2-2.0 [facility] Comment on above: Performed By: #### C VDTBH #### [facility] [address] [place] [address] Dr. Natalya Arthur EO # 0.1 103/ul Normal 0.0-0.7 [facility] Comment on above: Performed By: #### C VDTBH #### [facility] [address] [place] [address] Dr. Natalya Arthur Eosinophils/100 WBC (Bld) 1.9 % Normal 0.9-7.0 [facility] Comment on above: Performed By: #### C VDTBH #### [facility] [address] [place] [address] Dr. Natalya Arthur Erythrocyte distribution width (RBC) [Ratio] 13.1 % Normal 11.0-15.0 [facility] Comment on above: Performed By: #### C VDTBH #### [facility] [address] [place] [address] Dr. Natalya Arthur Hematocrit (Bld) [Volume fraction] 38.5 % Critically low 42.0-54.0 [facility] Comment on above: Performed By: #### C VDTBH #### [facility] [address] [place] [address] Dr. Natalya Arthur Hemoglobin (Bld) [Mass/Vol] 12.7 g/dL Critically low 14.0-18.0 [facility] Comment on above: Performed By: #### C VDTBH #### [facility] [address] [place] [address] Dr. Natalya Arthur IG # 0.03 10e3/ul Normal 0.00-0.03 [facility] Comment on above: Performed By: #### C VDTBH #### [facility] [address] [place] [address] Dr. Natalya Arthur IG % 0.6 % Critically high 0.0-0.5 [facility] Comment on above: Performed By: #### C VDTBH #### [facility] [address] [place] [address] Dr. Natalya Arthur LYMPH # 0.8 103/ul Critically low 1.2-3.8 [facility] Comment on above: Performed By: #### C VDTBH #### [facility] [address] [place] [address] Dr. Natalya Arthur Lymphocytes/100 WBC (Bld) 15.3 % Critically low 20.5-60.0 [facility] Comment on above: Performed By: #### C VDTBH #### [facility] [address] [place] [address] Dr. Natalya Arthur MANUAL DIFF REQ NO Normal [facility] Comment on above: Performed By: #### C VDTBH #### [facility] [address] [place] [address] Dr. Natalya Arthur MCH (RBC) [Entitic mass] 31.0 pg Normal 25.9-34.0 [facility] Comment on above: Performed By: #### C VDTBH #### [facility] [address] [place] [address] Dr. Natalya Arthur MCHC (RBC) [Mass/Vol] 33.0 g/dL Normal 29.9-35.2 [facility] Comment on above: Performed By: #### C VDTBH #### [facility] [address] [place] [address] Dr. Natalya Arthur MCV (RBC) [Entitic vol] 93.9 fL Normal 80.0-94.0 [facility] Comment on above: Performed By: #### C VDTBH #### [facility] [address] [place] [address] Dr. Natalya Arthur MONO # 0.4 103/ul Normal 0.3-0.8 [facility] Comment on above: Performed By: #### C VDTBH #### [facility] [address] [place] [address] Dr. Natalya Arthur Monocytes/100 WBC (Bld) 8.0 % Normal 1.7-12.0 [facility] Comment on above: Performed By: #### C VDTBH #### [facility] [address] [place] [address] Dr. Natalya Arthur NEUT # 3.8 103/ul Normal 1.4-6.5 [facility] Comment on above: Performed By: #### C VDTBH #### [facility] [address] [place] [address] Dr. Natalya Arthur Neutrophils/100 WBC (Bld) 73.6 % Normal 43.0-75.0 [facility] Comment on above: Performed By: #### C VDTBH #### [facility] [address] [place] [address] Dr. Natalya Arthur Platelet mean volume (Bld) [Entitic vol] 10.8 fL Normal 9.5-13.5 [facility] Comment on above: Performed By: #### C VDTBH #### [facility] [address] [place] [address] Dr. Natalya Arthur PLT 100 103/ul Critically low 150-450 [facility] Comment on above: Performed By: #### C VDTBH #### [facility] [address] [place] [address] Dr. Natalya Arthur RBC 4.10 106/ul Critically low 4.70-6.10 [facility] Comment on above: Performed By: #### C VDTBH #### [facility] [address] [place] [address] Dr. Natalya Arthur WBC 5.2 103/ul Normal 4.0-11.0 [facility] Comment on above: Performed By: #### C VDTBH #### [facility] [address] [place] [address] CSPINE WO CONon [...] by: ARTHUR LÓPEZ Date: 2021-08-16 17:00 Normal [facility] CT FACIAL BONES WO CONTRASTo n 08-16-2021 No acute facial frac ture. Soft tissue swelling and ecchymosis of the left face and scalp. [facility] RIS CONSOLIDATED EXAMINATION: CT OF THE FACE [...] SYSTEM PROVIDED HISTORY: Impact with object riding jailer TECHNOLOGIST PROVIDED HISTORY: Impact with object riding jailer Decision Support Exception - unselect if not [...] focus of subcutaneous emphysema left periorbital region. [facility] Augustin Potter MD - 08/16/2021 EXAMINATION: CT [...] SYSTEM PROVIDED HISTORY: Impact with object riding jailer TECHNOLOGIST PROVIDED HISTORY: Impact with object riding jailer Decision Support Exception - unselect if not [...] ecchymosis of the left face and scalp. [employer] Work Phone: CT FACIAL BONES WO CONTRASTO rdered By: Augustin Hodges on 08-16-2021 [employer] Phone: CT HEAD WO CONon 08-16-2021 CT [...] CROFT Date: 2021-08-16 15:37 Normal [facility] CT HEAD WO CONTRASTon 2021 [...] result Normal [facility] Minimal left frontal subarachnoid hemorrhage in 1 of the sulci. No evidence of extra-axial collections. Prominent left frontal and parietal scalp swelling/hemorrhage. The findings were sent to the Radiology Results Communication [facility] at 9:22 pm on 08/16/2021 to be communicated to a licensed caregiver. [facility] CONSOLIDATED EXAMINATION: CT OF THE HEAD WITHOUT [...] TISSUES/SKULL: There is left frontoparietal scalp swelling/hemorrhage. [facility] CONSOLIDATED Hardeep Godwin MD - 08/16/2021 EXAMINATION: CT [...] to be communicated to a licensed caregiver. [employer] Work Phone: CT HEAD WO CONTRASTOrdered B y: Hardeep Godwin on 08-16-2021 [facility] [employer] Work Phone: Covid-19 PCR (CVDTBH)on 07-24 SARS-CoV-2 (COVID-19) RNA GÓMEZ+probe Ql (Unsp spec) Not detected Normal NOT DETECTED [facility] Comment on above: Result Comment: This test is not yet approved or cleared by the [place] FDA. When there are no FDA-approved or cleared tests available, and other criteria are met, FDA can make tests available under an emergency access mechanism called an Emergency Use Authorization (EUA). The EUA for this test is supported by the [place] of Health and Human Service's (HHS's) declaration [...] SARS-CoV-2. Performed By: #### C VDTBH #### [facility] [address] [place] [address] Dr. Natalya Arthur No Panel Informationon 08-16 Radiology Study observation (narrative) [facility] [employer] Work Phone: PROF CHEM 8 (BAS METB)on Anion gap [Moles/Vol] 13.6 mmol/L Normal [facility] Comment on above: Performed By: #### C VDTBH #### [facility] [address] [place] [address] Dr. Natalya Arthur Calcium [Mass/Vol] 9.0 mg/dL Normal 8.5-10.[address] [facility] Comment on above: Performed By: #### C VDTBH #### [facility] [address] [place] [address] Dr. Natalya Arthur Chloride [Moles/Vol] 107 mmol/L Normal 98-107 [facility] Comment on above: Performed By: #### C VDTBH #### [facility] [address] [place] [address] Dr. Natalya Arthur CO2 [Moles/Vol] 24.4 mmol/L Normal 21.0-32.0 [facility] Comment on above: Performed By: #### C VDTBH #### [facility] [address] [place] [address] Dr. Natalya Arthur Creatinine [Mass/Vol] 1.09 mg/dL Normal 0.70-1.30 [facility] Comment on above: Performed By: #### C VDTBH #### [facility] [address] [place] [address] Dr. Natalya Arthur EGFR-AF MALAWIAN >60 Normal >=60 [facility] Comment on above: Performed By: #### C VDTBH #### [facility] [address] [place] [address] Dr. Natalya Arthur EGFR-NON AF MALAWIAN >60 Normal >=60 [facility] Comment on above: Performed By: #### C VDTBH #### [facility] [address] [address] [address] Natalya Arthur Glucose [Mass/Vol] 111 mg/dL Critically high 74-106 [facility] Comment on above: Performed By: #### C VDTBH #### [facility] [address] [place] [address] Dr. Natalya Arthur Potassium [Moles/Vol] 4.0 mmol/L Normal 3.5-5.1 [facility] Comment on above: Performed By: #### C VDTBH #### [facility] [address] [address] [address] Natalya Arthur Sodium [Moles/Vol] 141 mmol/L Normal 136-[address] [facility] Comment on above: Performed By: #### C VDTBH #### [facility] [address] [place] [address] Dr. Natalya Arthur Urea nitrogen [Mass/Vol] 21.0 mg/dL Critically high 7.0-18.0 [facility] Comment on above: Performed By: #### C VDTBH #### [facility] [address] [place] [address] Dr. Natalya Arthur Urea nitrogen/Creatinine [Mass ratio] 19.3 mg/mg Normal [facility] Comment on above: Performed By: #### C VDTBH #### [facility] [address] [place] [address] Dr. Natalya Arthur PROTIMEon 08-16-2021 INR Coag (PPP) [Relative time] 1.12 {INR} Normal [facility] Comment on above: Performed By: #### F ETIBC, FERR #### [facility] [address] [place] [address] Dr. Natalya Arthur INR GUIDELINES SEE BELOW Normal [facility] Comment on above: Result Comment: REFUGIO RED INR: 2.0 - 3.0 CONDITIONS NOT LISTED BELOW 2.5 - 3.5 FOR PROSTHETIC HEART VALVE REPLACEMENT 2.5 - 3.5 RECURRENT THROMBOSIS Performed By: #### F ETIBC, FERR #### [facility] [address] [place] [address] Dr. Natalya Arthur PT Coag (PPP) [Time] 12.0 s Critically high 9.0-11.6 [facility] Comment on above: Performed By: #### F ETIBC, FERR #### [facility] [address] [place] [address] Dr. Natalya Arthur PTTon 08-16-2021 aPTT Coag (Bld) [Time] 28.6 s Normal 22.3-36.2 [facility] Comment on above: Performed By: #### F ETIBC, FERR #### [facility] [address] [place] [address] Dr. Natalya Arthur [id number] 2021 Guzre-1-[id number], Serum 125 mg/dL Normal 101-187 [facility] Comment on above: Performed By: #### A LPHA-1 #### [facility] [address] [place] [address] Dr. Naatlya Arthur BETHANIE EIA W/REFLEX 5 BIOMARKER Son 07-13-2021 BETHANIE Direct Negative Normal Negative [facility] Comment on above: Performed By: #### C VDTBH #### [facility] [address] [place] [address] Dr. Natalya Arthur CERULOPLASMINon 07-13-2021 Ceruloplasmin 19.0 mg/dL Normal 16.0-31.0 [facility] Comment on above: Performed By: #### C EUROPL #### [facility] [address] [place] [address] Dr. Natalya Arthur SMOOTH MUSCLE ANTIBODYon Actin (Smooth Muscle) Antibody 25 Units Critically high 0-19 [facility] Comment on above: Result Comment: Nega tive 0 - 19 Weak positive 20 - 30 Moderate to strong positive >30 . Actin Antibodies are found in 52-85% of patients with autoimmune hepatitis or chronic active hepatitis and in 22% of patients with primary biliary cirrhosis. Performed By: #### C VDTBH #### [facility] [address] [place] [address] Dr. Natalya Arthur CBC AUTO DIFFon 07-12-2021 BASO # 0.0 103/ul Normal 0.0-0.1 [facility] Comment on above: Performed By: #### F ETIBC, FERR #### [facility] [address] [place] [address] Dr. Natalya Arthur Basophils/100 WBC (Bld) 0.4 % Normal 0.2-2.0 [facility] Comment on above: Performed By: #### F ETIBC, FERR #### [facility] [address] [place] [address] Dr. Natalya Arthur EO # 0.2 103/ul Normal 0.0-0.7 [facility] Comment on above: Performed By: #### F ETIBC, FERR #### [facility] [address] [place] [address] Dr. Natalya Arthur Eosinophils/100 WBC (Bld) 4.0 % Normal 0.9-7.0 [facility] Comment on above: Performed By: #### F ETIBC, FERR #### [facility] [address] [place] [address] Dr. Natalya Arthur Erythrocyte distribution width (RBC) [Ratio] 13.8 % Normal 11.0-15.0 [facility] Comment on above: Performed By: #### F ETIBC, FERR #### [facility] [address] [place] [address] Dr. Natalya Arthur Hematocrit (Bld) [Volume fraction] 41.5 % Critically low 42.0-54.0 [facility] Comment on above: Performed By: #### F ETIBC, FERR #### [facility] [address] [place] [address] Dr. Natalya Arthur Hemoglobin (Bld) [Mass/Vol] 13.2 g/dL Critically low 14.0-18.0 [facility] Comment on above: Performed By: #### F ETIBC, FERR #### [facility] [address] [place] [address] Dr. Natalya Arthur IG # 0.02 10e3/ul Normal 0.00-0.03 [facility] Comment on above: Performed By: #### F ETIBC, FERR #### [facility] [address] [place] [address] Dr. Natalya Arthur IG % 0.4 % Normal 0.0-0.5 [facility] Comment on above: Performed By: #### F ETIBC, FERR #### [facility] [address] [place] [address] Dr. Natalya Arthur LYMPH # 0.8 103/ul Critically low 1.2-3.8 [facility] Comment on above: Performed By: #### F ETIBC, FERR #### [facility] [address] [place] [address] Dr. Natalya Arthur Lymphocytes/100 WBC (Bld) 17.0 % Critically low 20.5-60.0 [facility] Comment on above: Performed By: #### F ETIBC, FERR #### [facility] [address] [place] [address] Dr. Natalya Arthur MANUAL DIFF REQ NO Normal [facility] Comment on above: Performed By: #### F ETIBC, FERR #### [facility] [address] [place] [address] Dr. Natalya Arthur MCH (RBC) [Entitic mass] 30.9 pg Normal 25.9-34.0 [facility] Comment on above: Performed By: #### F ETIBC, FERR #### [facility] [address] [place] [address] Dr. Natalya Arthur MCHC (RBC) [Mass/Vol] 31.8 g/dL Normal 29.9-35.2 [facility] Comment on above: Performed By: #### F ETIBC, FERR #### [facility] [address] [place] [address] Dr. Natalya Arthur MCV (RBC) [Entitic vol] 97.2 fL Critically high 80.0-94.0 [facility] Comment on above: Performed By: #### F ETIBC, FERR #### [facility] [address] [place] [address] Dr. Natalya Arthur MONO # 0.5 103/ul Normal 0.3-0.8 [facility] Comment on above: Performed By: #### F ETIBC, FERR #### [facility] [address] [place] [address] Dr. Natalya Arthur Monocytes/100 WBC (Bld) 10.5 % Normal 1.7-12.0 [facility] Comment on above: Performed By: #### F ETIBC, FERR #### [facility] [address] [place] [address] Dr. Natalya Arthur NEUT # 3.2 103/ul Normal 1.4-6.5 [facility] Comment on above: Performed By: #### F ETIBC, FERR #### [facility] [address] [place] [address] Dr. Natalya Arthur Neutrophils/100 WBC (Bld) 67.7 % Normal 43.0-75.0 [facility] Comment on above: Performed By: #### F ETIBC, FERR #### [facility] [address] [place] [address] Dr. Natalya Arthur Platelet mean volume (Bld) [Entitic vol] 10.7 fL Normal 9.5-13.5 [facility] Comment on above: Performed By: #### F ETIBC, FERR #### [facility] [address] [place] [address] Dr. Natalya Arthur PLT 106 103/ul Critically low 150-450 [facility] Comment on above: Result Comment: smea r reviewed Performed By: #### F ETIBC, FERR #### [facility] [address] [place] [address] Dr. Natalya Arthur RBC 4.27 106/ul Critically low 4.70-6.10 [facility] Comment on above: Performed By: #### F ETIBC, FERR #### [facility] [address] [place] [address] Dr. Natalya Arthur WBC 4.8 103/ul Normal 4.0-11.0 [facility] Comment on above: Performed By: #### F ETIBC, FERR #### [facility] [address] [place] [address] Dr. Natalya Arthur FERRITINon 07-12-2021 Ferritin [Mass/Vol] 94.0 ng/mL Normal 17.9-464.0 [facility] Comment on above: Performed By: #### F ETIBC, FERR #### [facility] [address] [place] [address] Dr. Natalya Arthur IRON AND TIBCon 07-12-2021 % SATURATION 26.8 % Normal [facility] Comment on above: Performed By: #### F ETIBC, FERR #### [facility] [address] [place] [address] Dr. Natalya Arthur Iron [Mass/Vol] 106.0 ug/dL Normal 49.0-181.0 [facility] Comment on above: Performed By: #### F ETIBC, FERR #### [facility] [address] [place] [address] Dr. Natalya Arthur TIBC DIRECT 395.0 ug/dL Normal 261.0-497. 0 [facility] Comment on above: Performed By: #### F ETIBC, FERR #### [facility] [address] [place] [address] Dr. Natalya Arthur LIPID PROFILEon 07-12-2021 CHOL-HDL RATIO NORM SEE BELOW Normal [facility] Comment on above: Result Comment: 3.3 - 4.4 LOW RISK 4.4 - 7.1 AVERAGE RISK 7.1 - 11.0 MODERATE RISK >11.0 HIGH RISK Performed By: #### L FATOU LIPID #### [facility] [address] [place] [address] Dr. Natalya Arthur Cholesterol [Mass/Vol] 139 mg/dL Normal <=200 [facility] Comment on above: Performed By: #### L FATOU LIPID #### [facility] [address] [place] [address] Dr. Natalya Arthur Cholesterol in HDL [Mass/Vol] 58 mg/dL Normal 40-60 [facility] Comment on above: Performed By: #### L IVGAVIN, LIPID #### [facility] [address] [address] [address] Natalya Arthur Cholesterol in LDL [Mass/Vol] 58.8 mg/dL Normal [facility] Comment on above: Performed By: #### L IVGAVIN, LIPID #### [facility] [address] [address] [address] Natalya Arthur Cholesterol.total/Chol esterol in HDL [Mass ratio] 2.4 {ratio} Normal [facility] Comment on above: Performed By: #### L IVGAVIN, LIPID #### [facility] [address] [place] [address] Dr. Natalya Arthur HDL NORMAL > or = 60 mg/dl - LO W CARDIOVASCULAR RISK <40 mg/dl - HIGH CARDIOVASCULAR RISK Normal [facility] Comment on above: Performed By: #### L FATOU LIPID #### [facility] [address] [place] [address] Dr. Natalya Arthur LDL CALC NORMAL SEE BELOW Normal [facility] Comment on above: Result Comment: <100 mg/dl OPTIMAL 100 - 129 mg/dl NEAR OR ABOVE OPTIMAL 130 - 159 mg/dl BORDERLINE HIGH 160 - 189 mg/dl HIGH >190 mg/dl VERY HIGH Performed By: #### L FATOU, LIPID #### [facility] [address] [address] [address] Natalya Arthur Triglyceride [Mass/Vol] 111 mg/dL Normal <=150 [facility] Comment on above: Performed By: #### L IVGAVIN LIPID #### [facility] [address] [address] [address] Natalya Arthur VLDL CALC 22.2 mg/dL Normal [facility] Comment on above: Performed By: #### L IVGAVIN, LIPID #### [facility] [address] [place] [address] Dr. Natalya Arthur LIVER PROFILEon 07-12-2021 Albumin [Mass/Vol] 3.4 g/dL Normal 3.4-5.[address] [facility] Comment on above: Performed By: #### L IVER, LIPID #### [facility] [address] [address] [address] Natalya Arthur Albumin/Globulin [Mass ratio] 0.9 {ratio} Normal [facility] Comment on above: Performed By: #### L IVER, LIPID #### [facility] [address] [address] [address] Natalya Arthur ALP [Catalytic activity/Vol] 129 U/L Critically high 46-116 [facility] Comment on above: Performed By: #### L IVER, LIPID #### [facility] [address] [address] [address] Natalya Arthur ALT [Catalytic activity/Vol] 72 U/L Critically high 16-63 [facility] Comment on above: Performed By: #### L IVER, LIPID #### [facility] [address] [place] [address] Dr. Natalya Arthur AST [Catalytic activity/Vol] 57 U/L Critically high 15-37 [facility] Comment on above: Performed By: #### L IVER, LIPID #### [facility] [address] [place] [address] Dr. Natalya Arthur BILI, CONJUGATED 0.2 mg/dL Normal 0.0-0.3 [facility] Comment on above: Performed By: #### L IVER, LIPID #### [facility] [address] [address] [address] Natalya Arthur Bilirubin [Mass/Vol] 0.6 mg/dL Normal 0.2-1.3 [facility] Comment on above: Performed By: #### L IVER, LIPID #### [facility] [address] [address] [address] Natalya Arthur Globulin (S) [Mass/Vol] 3.9 g/dL Normal [facility] Comment on above: Performed By: #### L IVER, LIPID #### [facility] [address] [address] [address] Natalya Arthur Protein [Mass/Vol] 7.3 g/dL Normal 6.1-8.[address] [facility] Comment on above: Performed By: #### L IVER, LIPID #### [facility] [address] [place] [address] Dr. Natalya Arthur PROTIMEon 07-12-2021 INR Coag (PPP) [Relative time] 1.10 {INR} Normal [facility] Comment on above: Performed By: #### F ETIBC, FERR #### [facility] [address] [address] [address] Natalya Arthur INR GUIDELINES SEE BELOW Normal [facility] Comment on above: Result Comment: REFUGIO RED INR: 2.0 - 3.0 CONDITIONS NOT LISTED BELOW 2.5 - 3.5 FOR PROSTHETIC HEART VALVE REPLACEMENT 2.5 - 3.5 RECURRENT THROMBOSIS Performed By: #### F ETIBC, FERR #### [facility] [address] [place] [address] Dr. Natalya Arthur PT Coag (PPP) [Time] 11.8 s Critically high 9.0-11.6 [facility] Comment on above: Performed By: #### F ETIBC, FERR #### [facility] [address] [place] [address] Dr. Natalya Arthur Comprehensive Metabolic Pane ross 06-07-2021 Albumin [Mass/Vol] 3.9 g/dL Normal 3.6-5.1 [facility] Comment on above: Performed By: #### C MP #### [facility] [address] [place], [place] [id number] Albumin/Globulin [Mass ratio] 1.4 {ratio} Normal 1.0-2.5 [facility] Comment on above: Performed By: #### C MP #### [facility] [address], [place] [id number] ALP [Catalytic activity/Vol] 128 U/L Normal 40-129 [facility] Comment on above: Performed By: #### C MP #### [facility] [address], [place] [id number] ALT [Catalytic activity/Vol] 45 U/L Normal 9-46 [facility] [employer] Comment on above: Result Comment: 02/22 Female reference range changed. Performed By: #### C MP #### [facility] [address], [place] [id number] Anion gap [Moles/Vol] 15 mmol/L Normal 12-20 [facility] Comment on above: Result Comment: [place] ctive 03/30/2019 reference range changed. Performed By: #### C MP #### [facility] [address] [facility] [place] [id number] AST [Catalytic activity/Vol] 49 U/L High 10-40 [facility] Comment on above: Performed By: #### C MP #### [facility] [address] [facility] [place] [id number] Bilirubin [Mass/Vol] 0.36 mg/dL Normal 0.30-1.20 [facility] Comment on above: Performed By: #### C MP #### [facility] [address] [place], [place] [id number] BUN/CREA 15 Ratio Normal 6-22 [facility] Comment on above: Performed By: #### C MP #### [facility] [address], [place] [id number] Calcium [Mass/Vol] 9.2 mg/dL Normal 8.6-10.2 [facility] Comment on above: Performed By: #### C MP #### [facility] [address], [place] [id number] Chloride [Moles/Vol] 104 mmol/L Normal 98-107 [facility] Comment on above: Performed By: #### C MP #### [facility] [address] [facility] [place] [id number] CO2 [Moles/Vol] 24 mmol/L Normal 20-31 [facility] Comment on above: Performed By: #### C MP #### [facility] [address] [facility] [place] [id number] Creatinine [Mass/Vol] 1.0 mg/dL Normal 0.7-1.4 [facility] Comment on above: Performed By: #### C MP #### [facility] [address] [facility] [place] [id number] eGFRAA 90 mL/min/1.73m2 Normal >60 [facility] Comment on above: Performed By: #### C MP #### [facility] [address], [place] [id number] eGFRNAA 74 mL/min/1.73m2 Normal >60 [facility] Comment on above: Performed By: #### C MP #### [facility] [address], [place] [id number] Globulin (S) [Mass/Vol] 2.7 g/dL Normal 1.9-3.7 [facility] Comment on above: Performed By: #### C MP #### [facility] [address] [place], [place] [id number] Glucose [Mass/Vol] 111 mg/dL High 65-99 [facility] [employer] Comment on above: Result Comment: For FASTING Glucose --- ADA reference ranges: Normal 65-99 mg/dl Prediabetes 100-125 Diabetes >/= 126 Performed By: #### C MP #### [facility] [address], [place] [id number] Potassium [Moles/Vol] 4.5 mmol/L Normal 3.5-5.5 [facility] Comment on above: Performed By: #### C MP #### [facility] [address], [place] [id number] Protein [Mass/Vol] 6.6 g/dL Normal 6.1-8.1 [facility] [employer] Comment on above: Performed By: #### C MP #### [facility] [address], [place] [id number] Sodium [Moles/Vol] 139 mmol/L Normal 135-146 [facility] [employer] Comment on above: Performed By: #### C MP #### [facility] [address], [place] [id number] Urea nitrogen [Mass/Vol] 15 mg/dL Normal 7-25 [facility] [employer] Comment on above: Performed By: #### C MP #### [facility] [address], [place] [id number] Q - HEPATITIS PANEL ABC GENE RAL WITH REFLEXon 06-07-2021 HEPATITIS A AB, TOTAL Non-Reactive Normal NON-RE ACTI VE [facility] [employer] Operator Comment on above: Order Comment: [facility] performed at: ReplySend, [facility], [address] [facility], [address] [place] [address], [address] [place] [address], [employer] Operator: Sd Sharma MD [facility] Collection Date/Time: [facility] Results Received Date/Time: [facility] Reported Date/Time: Result Comment: For additional information, please refer to http://education.[employer]/faq/VFK029 (This link is being provided for informational/ educational purposes only.) Performed By: #### 6 [id number] #### [facility] [address] [place] [address] HEPATITIS B CORE AB TOTAL Non-Reactive Normal NON-REACTI VE [facility] Comment on above: Order Comment: [facility] performed at: [facility], [address] [facility], [address] [place] [address], [address] [place] [address], [employer] Operator: Sd Sharma MD [facility] Date/Time: [facility] Results Received Date/Time: [facility] Reported Date/Time: Performed By: #### 6 [id number] #### [facility] [address] [place] [address] HEPATITIS B SURFACE ANTIBODY QL Non-Reactive Normal NON-REACTI VE [facility] Comment on above: Order Comment: [facility] performed at: [facility], [address] [facility], [address] [place] [address], [address] [place] [address], [employer] Operator: Sd Sharma MD [facility] Date/Time: [facility] Results Received Date/Time: [facility] Reported Date/Time: Performed By: #### 6 [id number] #### [facility] [address] [place] [address] HEPATITIS B SURFACE ANTIGEN Non-Reactive Normal NON-REACTI VE [facility] [employer] Operator Comment on above: Order Comment: [facility] performed at: [facility]Send, [facility], [address] [place] , [address] [place] [address], [address] [place] [address], [employer] Operator: Sd Sharma MD [facility] Date/Time: [facility] Results Received Date/Time: [facility] Reported Date/Time: Performed By: #### 6 [id number] #### [facility] [address] [place] [address] HEPATITIS C ANTIBODY Non-Reactive Normal NON-AMANDA CTI VE [facility] Comment on above: Order Comment: [facility] performed at: ReplySend, [facility], [address] [facility], [address] [place] [address], [address] [place] [address], [employer] Operator: Sd Sharma MD [facility] Date/Time: [facility] Results Received Date/Time: [facility] Reported Date/Time: Performed By: #### 6 [id number] #### [facility] [address] [place] [address] SIGNAL TO CUT-OFF 0.02 Normal <1.00 [facility] Comment on above: Order Comment: [facility] performed at: [facility]Send, [facility], [address] [facility], [address] [place] [address], [address] [place] [address], [employer] Operator: Sd Sharma MD [facility] Date/Time: [facility] Results Received Date/Time: [facility] Reported Date/Time: Result Comment: HCV antibody was non-reactive. There is no laboratory evidence of HCV infection. In most cases, no further action is required. However, if recent HCV exposure is suspected, a test for HCV RNA (test code 05717) is suggested. For additional information please refer to http://education.[employer]/faq/SGG30w1 (This link is being provided for informational/ educational purposes only.) Performed By: #### 6 [id number] #### [facility] [address] [place] [address] Complete Blood Count with Au to Diffon 05-01-2021 Basophils (Bld) [#/Vol] 0.05 10*3/uL Normal 0.00-0.20 [facility] [employer] Comment on above: Performed By: #### C BCAD, CMP, VITD, TSH reflex FT4, LIPD #### [facility] [address], [place] [id number] Basophils/100 WBC (Bld) 1.1 % Normal [facility] [employer] Comment on above: Performed By: #### C BCAD, CMP, VITD, TSH reflex FT4, LIPD #### [facility] [address] [place], [place] [id number] Eosinophils (Bld) [#/Vol] 0.29 10*3/uL Normal 0.02-0.50 [facility] [employer] Operator Comment on above: Performed By: #### C BCAD, CMP, VITD, TSH reflex FT4, LIPD #### [facility] [address], [place] [id number] Eosinophils/100 WBC (Bld) 6.3 % Normal [facility] [employer] Comment on above: Performed By: #### C BCAD, CMP, VITD, TSH reflex FT4, LIPD #### [facility] [address] [place], [place] [id number] Erythrocyte distribution width (RBC) [Ratio] 12.9 % Normal 11.0-15.0 [facility] [employer] Comment on above: Performed By: #### C BCAD, CMP, VITD, TSH reflex FT4, LIPD #### [facility] [address] [place], [place] [id number] Hematocrit (Bld) [Volume fraction] 40.4 % Normal 38.5-50.0 [facility] [employer] Operator Comment on above: Performed By: #### C BCAD, CMP, VITD, TSH reflex FT4, LIPD #### [facility] [address], [place] [id number] Hemoglobin (Bld) [Mass/Vol] 13.1 g/dL Normal 13.0-17.1 [facility] [employer] Comment on above: Performed By: #### C BCAD, CMP, VITD, TSH reflex FT4, LIPD #### [facility] [address], [place] [id number] Lymphocytes (Bld) [#/Vol] 0.9 10*3/uL Normal 0.9-3.9 [facility] Comment on above: Performed By: #### C BCAD, CMP, VITD, TSH reflex FT4, LIPD #### [facility] [address] [place], [place] [id number] Lymphocytes/100 WBC (Bld) 18.6 % Normal [facility] Comment on above: Performed By: #### C BCAD, CMP, VITD, TSH reflex FT4, LIPD #### [facility] [address], [place] [id number] MCH (RBC) [Entitic mass] 31.0 pg Normal 27.0-33.0 [facility] Comment on above: Performed By: #### C BCAD, CMP, VITD, TSH reflex FT4, LIPD #### [facility] [address], [place] [id number] MCHC (RBC) [Mass/Vol] 32.4 g/dL Normal 32.0-36.0 [facility] Comment on above: Performed By: #### C BCAD, CMP, VITD, TSH reflex FT4, LIPD #### [facility] [address], [place] [id number] MCV (RBC) [Entitic vol] 96 fL Normal 80-100 [facility] Comment on above: Performed By: #### C BCAD, CMP, VITD, TSH reflex FT4, LIPD #### [facility] [address] [place], [place] [id number] Monocytes (Bld) [#/Vol] 0.4 10*3/uL Normal 0.2-0.9 [facility] Comment on above: Performed By: #### C BCAD, CMP, VITD, TSH reflex FT4, LIPD #### [facility] [address] [place], [place] [id number] Monocytes/100 WBC (Bld) 8.4 % Normal [facility] Comment on above: Performed By: #### C BCAD, CMP, VITD, TSH reflex FT4, LIPD #### [facility] [address] [place], [place] [id number] Neutrophils (Bld) [#/Vol] 3.0 10*3/uL Normal 1.5-7.8 [facility] Comment on above: Performed By: #### C BCAD, CMP, VITD, TSH reflex FT4, LIPD #### [facility] [address] [place], [place] [id number] Neutrophils/100 WBC (Bld) 65.4 % Normal [facility] Comment on above: Performed By: #### C BCAD, CMP, VITD, TSH reflex FT4, LIPD #### [facility] [address] [place], [place] [id number] Platelet mean volume (Bld) [Entitic vol] 10.20 fL Normal 7.50-12.50 [facility] Comment on above: Performed By: #### C BCAD, CMP, VITD, TSH reflex FT4, LIPD #### [facility] [address], [place] [id number] Platelets (Bld) [#/Vol] 141 10*3/uL Normal 140-400 [facility] Comment on above: Performed By: #### C BCAD, CMP, VITD, TSH reflex FT4, LIPD #### [facility] [address], [place] [id number] RBC (Bld) [#/Vol] 4.22 10*6/uL Normal 4.20-5.80 [facility] Comment on above: Performed By: #### C BCAD, CMP, VITD, TSH reflex FT4, LIPD #### [facility] [address], [place] [id number] RDW-SD 45.2 fL Normal 37.0-50.0 [facility] Comment on above: Performed By: #### C BCAD, CMP, VITD, TSH reflex FT4, LIPD #### [facility] [address], [place] [id number] WBC (Bld) [#/Vol] 4.6 10*3/uL Normal 3.8-11.0 [facility] Comment on above: Performed By: #### C BCAD, CMP, VITD, TSH reflex FT4, LIPD #### [facility] [address], [place] [id number] Comprehensive Metabolic Pane ross 05-01-2021 Albumin [Mass/Vol] 4.0 g/dL Normal 3.6-5.1 [facility] Comment on above: Performed By: #### C BCAD, CMP, VITD, TSH reflex FT4, LIPD #### [facility] [address], [place] [id number] Albumin/Globulin [Mass ratio] 1.5 {ratio} Normal 1.0-2.5 [facility] Comment on above: Performed By: #### C BCAD, CMP, VITD, TSH reflex FT4, LIPD #### [facility] [address], [place] [id number] ALP [Catalytic activity/Vol] 140 U/L High 40-129 [facility] Comment on above: Performed By: #### C BCAD, CMP, VITD, TSH reflex FT4, LIPD #### [facility] [address], [place] [id number] ALT [Catalytic activity/Vol] 63 U/L High 9-46 [facility] Comment on above: Result Comment: 02/22 Female reference range changed. Performed By: #### C BCAD, CMP, VITD, TSH reflex FT4, LIPD #### [facility] [address], [place] [id number] Anion gap [Moles/Vol] 17 mmol/L Normal 12-20 [facility] Comment on above: Result Comment: Effe ctive 03/30/2019 reference range changed. Performed By: #### C BCAD, CMP, VITD, TSH reflex FT4, LIPD #### [facility] [address], [place] [id number] AST [Catalytic activity/Vol] 62 U/L High 10-40 [facility] Comment on above: Performed By: #### C BCAD, CMP, VITD, TSH reflex FT4, LIPD #### [facility] [address], [place] [id number] Bilirubin [Mass/Vol] 0.41 mg/dL Normal 0.30-1.20 [facility] Comment on above: Performed By: #### C BCAD, CMP, VITD, TSH reflex FT4, LIPD #### [facility] [address], [place] [id number] BUN/CREA 13 Ratio Normal 6-22 [facility] Comment on above: Performed By: #### C BCAD, CMP, VITD, TSH reflex FT4, LIPD #### [facility] [address], [place] [id number] Calcium [Mass/Vol] 9.5 mg/dL Normal 8.6-10.2 [facility] Comment on above: Performed By: #### C BCAD, CMP, VITD, TSH reflex FT4, LIPD #### [facility] [address], [place] [id number] Chloride [Moles/Vol] 106 mmol/L Normal 98-107 [facility] Comment on above: Performed By: #### C BCAD, CMP, VITD, TSH reflex FT4, LIPD #### [facility] [address], [place] [id number] CO2 [Moles/Vol] 26 mmol/L Normal 20-31 [facility] Comment on above: Performed By: #### C BCAD, CMP, VITD, TSH reflex FT4, LIPD #### [facility] [address], [place] [id number] Creatinine [Mass/Vol] 0.9 mg/dL Normal 0.7-1.4 [facility] Comment on above: Performed By: #### C BCAD, CMP, VITD, TSH reflex FT4, LIPD #### [facility] [address], [place] [id number] eGFRAA 99 mL/min/1.73m2 Normal >60 [facility] Comment on above: Performed By: #### C BCAD, CMP, VITD, TSH reflex FT4, LIPD #### [facility] [address], [place] [id number] eGFRNAA 81 mL/min/1.73m2 Normal >60 [place] [employer] Comment on above: Performed By: #### C BCAD, CMP, VITD, TSH reflex FT4, LIPD #### [facility] [address] [place], [place] [id number] Globulin (S) [Mass/Vol] 2.6 g/dL Normal 1.9-3.7 [facility] [employer] Comment on above: Performed By: #### C BCAD, CMP, VITD, TSH reflex FT4, LIPD #### [facility] [address], [place] [id number] Glucose [Mass/Vol] 89 mg/dL Normal 65-99 [facility] [employer] Comment on above: Result Comment: For FASTING Glucose --- ADA reference ranges: Normal 65-99 mg/dl Prediabetes 100-125 Diabetes >/= 126 Performed By: #### C BCAD, CMP, VITD, TSH reflex FT4, LIPD #### [facility] [address], [place] [id number] Potassium [Moles/Vol] 5.0 mmol/L Normal 3.5-5.5 [facility] Comment on above: Performed By: #### C BCAD, CMP, VITD, TSH reflex FT4, LIPD #### [facility] [address] [place], [place] [id number] Protein [Mass/Vol] 6.6 g/dL Normal 6.1-8.1 [facility] [employer] Comment on above: Performed By: #### C BCAD, CMP, VITD, TSH reflex FT4, LIPD #### [facility] [address], [place] [id number] Sodium [Moles/Vol] 143 mmol/L Normal 135-146 [facility] [employer] Comment on above: Performed By: #### C BCAD, CMP, VITD, TSH reflex FT4, LIPD #### [facility] [address] [place], [place] [id number] Urea nitrogen [Mass/Vol] 12 mg/dL Normal 7-25 [facility] [employer] Comment on above: Performed By: #### C BCAD, CMP, VITD, TSH reflex FT4, LIPD #### [facility] [address], [place] [id number] Lipid Panelon 05-01-2021 Cholesterol [Mass/Vol] 135 mg/dL Normal 125-200 No [facility] Comment on above: Result Comment: Low risk < 200mg/dL Borderline risk 201-239 mg/dl High risk > or equal to 240 Performed By: #### C BCAD, CMP, VITD, TSH reflex FT4, LIPD #### [facility] [address], [place] [id number] Cholesterol in HDL [Mass/Vol] 44 mg/dL Normal >40 [facility] Comment on above: Result Comment: High Cardiovascular Risk HDL <40 mg/dL Low Cardiovascular Risk HDL > or equal to 60 mg/dl Performed By: #### C BCAD, CMP, VITD, TSH reflex FT4, LIPD #### [facility] [address] [place], [place] [id number] Cholesterol in LDL [Mass/Vol] 65 mg/dL Normal [facility] Comment on above: Result Comment: LDL ATP III CLASSIFICATION LDL less than 100 mg/dl Optimal LDL 100-129 mg/dl Near or above optimal LDL 130-159 Borderline high LDL 160-189 High LDL greater than 189 mg/dl Very High Performed By: #### C BCAD, CMP, VITD, TSH reflex FT4, LIPD #### [facility] [address] [place], [place] [id number] Cholesterol in VLDL [Mass/Vol] 26 mg/dL Normal [facility] Comment on above: Performed By: #### C BCAD, CMP, VITD, TSH reflex FT4, LIPD #### [facility] [address] [place], [place] [id number] Cholesterol.total/Chol esterol in HDL [Mass ratio] 3 {ratio} Normal [facility] Comment on above: Performed By: #### C BCAD, CMP, VITD, TSH reflex FT4, LIPD #### [facility] [address], [place] [id number] Triglyceride [Mass/Vol] 130 mg/dL Normal 30-150 [facility] Comment on above: Result Comment: TRIG ATPIII CLASSIFICATIONS TRIG less than 150 mg/dl Normal TRIG 150-199 mg/dl Borderline High TRIG 200-500 mg/dl High TRIG [facility] than 500 mg/dl Very High Performed By: #### C BCAD, CMP, VITD, TSH reflex FT4, LIPD #### [facility] [address] [place], [place] [id number] PSA SCREEN (MEDICARE)on TPSA 0.983 ng/mL Normal <4.000 [facility] [employer] Comment on above: Result Comment: PSA Test Method: ECLIA/Mick e 601 Performed By: #### P SA #### [facility] [address], [place] [id number] TSH w/ Reflex to Free T4on 0 05-01-2021 TSH 1.150 uIU/mL Normal 0.400-4.50 0 [facility] [employer] Comment on above: Performed By: #### C BCAD, CMP, VITD, TSH reflex FT4, LIPD #### [facility] [address] [place], [place] [id number] Vitamin D 25-OHon 05-01-2021 VIT D 25 OH 32 ng/ml Normal >29 [facility] [employer] Comment on above: Result Comment: Maria E min D Status Deficiency <20 ng/mL Insufficiency 20-29 ng/mL Optimal 30-100 ng/mL Possible Toxicity >=150 ng/mL Performed By: #### C BCAD, CMP, VITD, TSH reflex FT4, LIPD #### [facility] [address] [place], [place] [id number] Covid-19 PCR ([facility])on SARS-CoV-2 (COVID-19) RNA GÓMEZ+probe Ql (Unsp spec) Not detected Normal NOT DETECTED [facility] Comment on above: Result Comment: This test is not yet approved or cleared by the [place] FDA. When there are no FDA-approved or cleared tests available, and other criteria are met, FDA can make tests available under an emergency access mechanism called an Emergency Use Authorization (EUA). The EUA for this test is supported by the Lye Treater of Health and Human Service's (HHS's) declaration [...] Performed By: #### F ETIBC, FERR #### [facility] [address] [place] [address] Dr. Natalya Arthur CBC AUTO DIFFon 02-03-2021 BASO # 0.0 103/ul Normal 0.0-0.1 [facility] Comment on above: Performed By: #### C BC #### [facility] [address] [place] [address] Dr. Natalya Arthur Basophils/100 WBC (Bld) 0.3 % Normal 0.2-2.0 [facility] Comment on above: Performed By: #### C BC #### [facility] [address] [place] [address] Dr. Natalya Arthur EO # 0.0 103/ul Normal 0.0-0.7 [facility] Comment on above: Performed By: #### C BC #### [facility] [address] [place] [address] Dr. Natalya Arthur Eosinophils/100 WBC (Bld) 0.1 % Critically low 0.9-7.0 [facility] Comment on above: Performed By: #### C BC #### [facility] [address] [place] [address] Dr. Natalya Arthur Erythrocyte distribution width (RBC) [Ratio] 13.2 % Normal 11.0-15.0 [facility] Comment on above: Performed By: #### C BC #### [facility] [address] [place] [address] Dr. Natalya Arthur Hematocrit (Bld) [Volume fraction] 46.5 % Normal 42.0-54.0 [facility] Comment on above: Performed By: #### C BC #### [facility] [address] [place] [address] Dr. Natalya Arthur Hemoglobin (Bld) [Mass/Vol] 15.2 g/dL Normal 14.0-18.0 [facility] Comment on above: Performed By: #### C BC #### [facility] [address] [place] [address] Dr. Natalya Arthur IG # 0.04 10e3/ul Critically high 0.00-0.03 [facility] Comment on above: Performed By: #### C BC #### [facility] [address] [place] [address] Dr. Natalya Arthur IG % 0.3 % Normal 0.0-0.5 [facility] Comment on above: Performed By: #### C BC #### [facility] [address] [place] [address] Dr. Natalya Arthur LYMPH # 1.2 103/ul Normal 1.2-3.8 [facility] Comment on above: Performed By: #### C BC #### [facility] [address] [place] [address] Dr. Natalya Arthur Lymphocytes/100 WBC (Bld) 10.3 % Critically low 20.5-60.0 [facility] Comment on above: Performed By: #### C BC #### [facility] [address] [place] [address] Dr. Natalya Arthur MANUAL DIFF REQ NO Normal [facility] Comment on above: Performed By: #### C BC #### [facility] [address] [place] [address] Dr. Natalya Arthur MCH (RBC) [Entitic mass] 31.0 pg Normal 25.9-34.0 [facility] Comment on above: Performed By: #### C BC #### [facility] [address] [place] [address] Dr. Natalya Arthur MCHC (RBC) [Mass/Vol] 32.7 g/dL Normal 29.9-35.2 [facility] Comment on above: Performed By: #### C BC #### [facility] [address] [place] [address] Dr. Natalya Arthur MCV (RBC) [Entitic vol] 94.9 fL Critically high 80.0-94.0 [facility] Comment on above: Performed By: #### C BC #### [facility] [address] [address] [address] Natalya Arthur MONO # 1.1 103/ul Critically high 0.3-0.8 [facility] Comment on above: Performed By: #### C BC #### [facility] [address] [address] [address] Natalya Arthur Monocytes/100 WBC (Bld) 9.2 % Normal 1.7-12.0 [facility] Comment on above: Performed By: #### C BC #### [facility] [address] [place] [address] Dr. Natalya Arthur NEUT # 9.6 103/ul Critically high 1.4-6.5 [facility] Comment on above: Performed By: #### C BC #### [facility] [address] [place] [address] Dr. Natalya Arthur Neutrophils/100 WBC (Bld) 79.8 % Critically high 43.0-75.0 [facility] Comment on above: Performed By: #### C BC #### [facility] [address] [place] [address] Dr. Natalya Arthur Platelet mean volume (Bld) [Entitic vol] 10.3 fL Normal 9.5-13.5 [facility] Comment on above: Performed By: #### C BC #### [facility] [address] [place] [address] Dr. Natalya Arthur PLT 126 103/ul Critically low 150-450 [facility] Comment on above: Performed By: #### C BC #### [facility] [address] [place] [address] Dr. Natalya Arthur RBC 4.90 106/ul Normal 4.70-6.10 [facility] Comment on above: Performed By: #### C BC #### [facility] [address] [place] [address] Dr. Natalya Arthur WBC 12.1 103/ul Critically high 4.0-11.0 [facility] Comment on above: Performed By: #### C BC #### [facility] [address] [address] [address] Natalya ALONSO URINE PROFILEon 1 Bilirubin Ql (U) Negative Normal NEGATIVE [facility] Comment on above: Performed By: #### E JENNIFERR, UMICRO #### [facility] [address] [address] [address] Natalya Arthur Clarity (U) CLEAR Normal CLEAR [facility] Comment on above: Performed By: #### E JENNIFERR UMICRO #### [facility] [address] [place] [address] Dr. Natalya Arthur Color (U) YELLOW Normal YELLOW [facility] Comment on above: Performed By: #### E VINAY UMICRO #### [facility] [address] [place] [address] Dr. Natalya Arthur ERUAHD A micrscopic examina tion will be performed if indicated. Normal [facility] Comment on above: Performed By: #### Arthur MCLEAN UMICRO #### [facility] [address] [place] [address] Dr. Natalya Arthur Glucose Ql (U) Negative Normal NEGATIVE [facility] Comment on above: Performed By: #### Arthur MCLEAN UMICRO #### [facility] [address] [place] [address] Dr. Natalya Arthur Hemoglobin Ql (U) LARGE Abnormal NEGATIVE [facility] Comment on above: Performed By: #### Arthur RUR, UMICRO #### [facility] [address] [address] [address] Natalya Arthur Ketones Ql (U) Negative Normal NEGATIVE [facility] Comment on above: Performed By: #### E RUR UMICRO #### [facility] [address] [place] [address] Dr. Natalya Arthur LEUKOCYTES Negative Normal NEGATIVE [facility] Comment on above: Performed By: #### Arthur RUR UMICRO #### [facility] [address] [place] [address] Dr. Natalya Arthur Nitrite Ql (U) Negative Normal NEGATIVE [facility] Comment on above: Performed By: #### MICK BESS #### [facility] [address] [place] [address] Dr. Natalya Arthur pH (U) 6.0 [pH] Normal 5-9 [facility] Comment on above: Performed By: #### ROHAN BESSRO #### [facility] [address] [place] [address] Dr. Natalya Arthur Protein (U) [Mass/Vol] 100 mg/dL Abnormal NEGAT ANTONIO/ TRACE [facility] Comment on above: Performed By: #### MICK BESS #### [facility] [address] [place] [address] Dr. Natalya Arthur SPEC GRAVITY >=1.030 Abnormal 1.005-<=1. 025 [facility] Comment on above: Performed By: #### MICK BESS #### [facility] [address] [place] [address] Dr. Natalya Arthur UR MICRO IND INDICATED Normal [facility] Comment on above: Performed By: #### MICK BESS #### [facility] [address] [place] [address] Dr. Natalya Arthur Urobilinogen Qn (U) 0.2 {Vonnie'U}/dL Normal 0.2 - 1. 0 [facility] Comment on above: Performed By: #### ROHAN BESSRO #### [facility] [address] [place] [address] Dr. Natalya Arthur LACTATE/LACTIC ACIDon 2020 Lactate [Moles/Vol] 1.7 mmol/L Normal 0.7-2.0 [facility] Comment on above: Performed By: #### C VDTB #### [facility] [address] [place] [address] Dr. Natayla Arthur LIPASEon 02-03-2021 Lipase [Catalytic activity/Vol] 143.0 U/L Normal 23.0-300.0 [facility] Comment on above: Performed By: #### C VDTBH #### [facility] [address] [place] [address] Dr. Natalya Arthur PROF 14(COMP METB)on 021 Albumin [Mass/Vol] 3.6 g/dL Normal 3.5-5.[address] [facility] Comment on above: Performed By: #### C VDTBH #### [facility] [address] [place] [address] Dr. Natalya Arthur Albumin/Globulin [Mass ratio] 0.8 {ratio} Normal [facility] Comment on above: Performed By: #### C VDTBH #### [facility] [address] [place] [address] Dr. Natalya Arthur ALP [Catalytic activity/Vol] 108 U/L Normal 38-126 [facility] Comment on above: Performed By: #### C VDTBH #### [facility] [address] [place] [address] Dr. Natalya Arthur ALT [Catalytic activity/Vol] 65 U/L Normal 21-72 [facility] Comment on above: Performed By: #### C VDTBH #### [facility] [address] [place] [address] Dr. Natalya Arthur Anion gap [Moles/Vol] 13.9 mmol/L Normal [facility] Comment on above: Performed By: #### C VDTBH #### [facility] [address] [place] [address] Dr. Natalya Arthur AST [Catalytic activity/Vol] 42 U/L Normal 17-59 [facility] Comment on above: Performed By: #### C VDTBH #### [facility] [address] [place] [address] Dr. Natalya Arthur Bilirubin [Mass/Vol] 1.0 mg/dL Normal 0.2-1.3 [facility] Comment on above: Performed By: #### C VDTBH #### [facility] [address] [place] [address] Dr. Natalya Arthur Calcium [Mass/Vol] 9.7 mg/dL Normal 8.4-10.[address] [facility] Comment on above: Performed By: #### C VDTBH #### [facility] [address] [place] [address] Dr. Natalya Arthur Chloride [Moles/Vol] 100 mmol/L Normal 98-107 [facility] Comment on above: Performed By: #### C VDTBH #### [facility] [address] [place] [address] Dr. Natalya Arthur CO2 [Moles/Vol] 28.2 mmol/L Normal 22.0-30.0 [facility] Comment on above: Performed By: #### C VDTBH #### [facility] [address] [place] [address] Dr. Natalya Arthur Creatinine [Mass/Vol] 1.18 mg/dL Normal 0.66-1.25 [facility] Comment on above: Performed By: #### C VDTBH #### [facility] [address] [place] [address] Dr. Natalya Arthur EGFR-AF MALAWIAN >60 Normal >=60 [facility] Comment on above: Performed By: #### C VDTBH #### [facility] [address] [place] [address] Dr. Natalya Arthur EGFR-NON AF MALAWIAN =60 Normal >=60 [facility] Comment on above: Performed By: #### C VDTBH #### [facility] [address] [place] [address] Dr. Natalya Arthur Globulin (S) [Mass/Vol] 4.5 g/dL Normal [facility] Comment on above: Performed By: #### C VDTBH #### [facility] [address] [place] [address] Dr. Natalya Arthur Glucose [Mass/Vol] 121 mg/dL Critically high 74-106 [facility] Comment on above: Performed By: #### C VDTBH #### [facility] [address] [place] [address] Dr. Natalya Arthur Potassium [Moles/Vol] 4.1 mmol/L Normal 3.4-5.0 [facility] Comment on above: Performed By: #### C VDTBH #### [facility] [address] [address] [address] Natalya Arthur Protein [Mass/Vol] 8.1 g/dL Normal 6.1-8.2 [facility] [place] Comment on above: Performed By: #### C VDTBH #### [facility] [address] [place] [address] Dr. Natalya Arthur Sodium [Moles/Vol] 138 mmol/L Normal 137-[address] [facility] Comment on above: Performed By: #### C VDTBH #### [facility] [address] [place] [address] Dr. Natalya Arthur Urea nitrogen [Mass/Vol] 17.0 mg/dL Normal 9.0-20.0 [facility] Comment on above: Performed By: #### C VDTBH #### [facility] [address] [place] [address] Dr. Natalya Arthur Urea nitrogen/Creatinine [Mass ratio] 14.4 mg/mg Normal [facility] Comment on above: Performed By: #### C VDTBH #### [facility] [address] [place] [address] Dr. Natalya Arthur TROPONIN, HIGH SENSITIVITYon 02-03-2021 HSTROP 49.0 pg/mL Critically high 4.0-42.2 [facility] Comment on above: Result Comment: CUT- OFF POINTS HAVE BEEN ESTABLISHED BASED ON THE FOURTH UNIVERSAL DEFINITIONS OF MYOCARDIAL INFARCTION. THE UPPER REFERENCE LIMIT (URL) OF TROPONIN, DEFINED THE 99TH PERCENTILE OF cTnI DISTRIBUTION IN A REFERENCE POPULATION, HAS BEEN CONFIRMED THE DECISION THRESHOLD FOR AL DIAGNOSIS. Performed By: #### C VDTBH #### [facility] [address] [place] [address] Dr. Natalya Arthur URINE MICROSCOPIC ONLYon AMORPHOUS CRYSTALS FEW Normal [facility] Comment on above: Performed By: #### E ROHAN MCLEANRO #### [facility] [address] [place] [address] Dr. Natalya Arthur BACTERIA TRACE Abnormal NONE SEEN [facility] Comment on above: Performed By: #### E RUR, UMICRO #### [facility] [address] [place] [address] Dr. Natalya Arthur Bacteria identified Cx Nom (U) NOT INDICATED Normal [facility] Comment on above: Performed By: #### E RUR, UMICRO #### [facility] [address] [place] [address] Dr. Natalya Arthur CAST NONE SEEN Normal NONE SEEN [facility] Comment on above: Performed By: #### E RUR, UMICRO #### [facility] [address] [place] [address] Dr. Natalya Arthur Crystals LM Nom (Urine sed) SEEN Abnormal NONE SEEN [facility] Comment on above: Performed By: #### E RUR, UMICRO #### [facility] [address] [place] [address] Dr. Natalya Arthur Epithelial cells LM Ql (Urine sed) FEW Abnormal NONE SEEN /RARE [facility] Comment on above: Performed By: #### E RUR, UMICRO #### [facility] [address] [place] [address] Dr. Natalya Arthur MUCOUS LARGE Abnormal NONE SEEN [facility] Comment on above: Performed By: #### E RUR, UMICRO #### [facility] [address] [place] [address] Dr. Natalya Arthur RBC 10-20 Abnormal 0-2 [facility] Comment on above: Performed By: #### E RUR, UMICRO #### [facility] [address] [place] [address] Dr. Natalya Arthur WBC 0-2 Abnormal NONE SEEN [facility] Comment on above: Performed By: #### E RUR, UMICRO #### [facility] [address] [place] [address] Dr. Natalya Arthur US SINGLE QUAD RT [...] by: STEPHEN ARBOLEDA Date: 2021-02-03 19:08 Normal [facility] XR CHEST 1 Von 02-03-2021 XR CHEST [...] ARBOLEDA Date: 2021-02-03 19:22 Normal [facility] Cardiovascular Lab Reporton 10-31-2018 Cardiovascular Lab Report [facility] MR #: [id number] Department of Physician: Artis Horner M.D. Division of Service Date: 10/30/2018 Cardiology Birthdate: 1945 Adult Cardiovascular Room #: [facility] [address] [facility] [address] [address] Cardiovascular Laboratory Report CLINICAL PRESENTATION: Pankaj Payne is a 73-year-old male with past medical history significant for CAD, status post prior PCI of the left circumflex coronary artery in 02/2018; hypertension; hyperlipidemia; hypothyroidism. The patient was evaluated by Dr. Tenorio in the [place] [facility] [place] office. He reports worsening fatigue that was [...] infiltrated over the right radial artery. A 6-[place]serratian Terumo Glidesheath slender was placed in the right radial artery. The radial anti-vasospasm cocktail of verapamil 2.5 mg and nitroglycerin 200 mcg was administered through the sheath. All catheter exchanges were made over the Magic Torque guidewire. Initially, a 5-[place]serratian [place] catheter was used to engage the coronary arteries. The [place] catheter engaged the right coronary artery, but did not engage the left main coronary artery well. I then exchanged over wire to a 6-[place]serr[place]ian JL3.5 catheter which engaged the left main coronary artery. Coronary angiogram was performed in multiple orthogonal views using hand injection of contrast. At this point, it was apparent that the right PDA had intermediate stenosis, I elected to proceed with IFR evaluation. The [place] Verrata wire was zeroed outside of the body and then normalized at the catheter guide tip. Heparin anticoagulation was used for this procedure and the ACT was maintained greater than 200 seconds. The [place] Verrata wire was then manipulated to the [...] P/Josiah Schafer M.D. Date Trans: 10/31/2018 05:07 A/mmo [id number] cc: Frantz Conley M.D. [address] [facility] [address] Frantz Tenorio M.D. [address] [facility] [address] Normal [facility] Operative Reporton 12-10-201 8 Operative Report Date [...] day for postoperative care.Hardeep Fraga D.O.glsDictated: 02/25/2018 #[id number]: 02/25/2018 #[id number]: Hardeep Fraga D.O. [facility] Comment on above: Result Comment: Elec tronically Signed By: Hardeep Fraga DO\.br\Date and Time Signed: 03/03/18 12:57 EST Cardiovascular Lab Reporton 03-01-2018 Cardiovascular Lab Report [facility] Patient Name: [facility] Pankaj MR #: [id number] Department of Physician: Artis Pinedo M.D. Division of Service Date: 02/28/2018 Cardiology Birthdate: 1945 Adult Cardiovascular Room #: [id number] [address] Cardiovascular Laboratory Report FINAL IMPRESSION: 1. Successful [...] fashion. Using a modified Seldinger technique, a 5-Montserratian micropuncture was placed in right internal jugular vein. This was upsized to a regular 6-Montserratian sheath. Then, a 6-[place]serratian [place] was used for right heart catheterization. The right heart catheterization was performed. Access of the right radial artery under ultrasound guidance and in the right ulnar artery under ultrasound guidance a 6-Montserratian sheath was placed and then used a 6-[place]serratian JL3.5 and JR5 catheter for coronary angiography. After baseline angiography was performed, the case was discussed by his referring media strategist, Dr. Tenorio, as well as with the patient's family. Also given multiple lesions in right , circumflex coronary artery and a distal LAD lesion, we also discussed CABG as an option. 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 We decided to treat circumflex. 6-Montserratian XB 3.0 guide was used to engage the left main coronary ostium. A 0.014 [place] wire was passed across the proximal circumflex into the 1st obtuse marginal branch. Predilatation was performed using a 2.5 x 15 balloon. Then, we deployed a 2.5 x 16 Synergy stent. This was post-dilated with a 2.75 x 15 noncompliant at 24 atmospheres. Final angiography showed good stent result in the proximal circumflex into the 1st obtuse marginal branch. The [place] circumflex stayed open. There were no complications. [...] Barahona M.D. Date Trans: 03/01/2018 03:16 Rishabh/katelin [id number] cc: JYOTI Villalobos [address] [place] [address] Frantz Conley M.D. [address] [address] Frantz Tenorio M.D. [address] [address] Normal [facility] History and Physicalon 02-28 History and Physical MR#: [id number] [facility] Pt. Name: Pankaj Payne Admitted: 02/28/2018 Date [...] virally stable. We will admit for observation. [facility] monitoring. Monitor vitals every 4 hours. We will start aspirin, statin, and Plavix. Resume home dose of levothyroxine 100 mcg daily. Coordinate care with Cardiology. Electronically Signed by: Hill Lopez M.D. 03/03/2018 09:15 P Hill Lopez M.D. Date Dict: 02/28/2018/04:14 P/Hill Lopez M.D. Date Trans: 02/28/2018 04:44 P/mmo [id number] Normal [facility] Coding Summary.on 02-26-2018 Coding Summary. CODING DATE: 018 [facility] STATUS: Home (Routine DC) PAYOR: Medicare APC DESCRIPTION 5491 Level 1 Intraocular Procedures ADMIT DX: REASON FOR VISIT DX: H25.11 Age-related nuclear cataract, right eye FINAL DX: PRINCIPAL: H25.11 Age-related nuclear cataract, right eye SECONDARY: H25.041 Posterior subcapsular polar age-related cataract, right eye E03.9 Hypothyroidism, unspecified PYMT PROC APC STAT DESCRIPTION DOCTOR NAME DATE 82750 5491 J1 Extracapsular cataract Hardeep Fraga DO [...] Caldwell Date Saved: 02/26/2018 04:03 pm Normal [facility] Main OR Intraoperative Recor don 02-26-2018 Main OR Intraoperative Record IntraOp Document Type FT Summary Primary Physician: Hardeep Fraga DO Finalized Date/Time: 02/26/18 14:08:09 Pt. Name: PANKAJ PAYNE/Sex: 1945 Male Med Rec #: [id number] Physician: Hardeep Fraga DO Financial #: [id number] Pt. Type: A Room/Bed: [facility] Admit/Disch: 02/25/18 08:23:00 - 02/25/18 12:00:00 Institution: Case Times FT Entry 1 Patient Times In Room 02/25/18 11:00:00 Out Room 02/25/18 11:18:00 Procedure Times Start 02/25/18 11:05:00 Stop 02/25/18 11:16:00 Anesthesia Times Last Modified By: Elayne Agosto CST 02/25/18 11:17:41 General Comments: 02/26/18 Chart opened to review and send charges Estela Agosto NURSE INTERN Case Attendance FT Entry 1 Entry 2 Entry 3 Case Attendee Flakito JEAN, Hardeep Moreno RN, Arnold Rodsa BSN, RN, Sussy Role Performed Surgeon - Primary Kickboxing Instructor - Primary Kickboxing Instructor - Primary Time In 02/25/18 11:00:00 02/25/18 11:00:00 02/25/18 11:00:00 Time Out 02/25/18 11:18:00 02/25/18 11:18:00 02/25/18 11:18:00 Procedure CATARACT EXTRACTION W/ CATARACT EXTRACTION W/ CATARACT EXTRACTION W/ INTRAOCULAR LENS(Right) INTRAOCULAR LENS(Right) INTRAOCULAR LENS(Right) Comments Last Modified By: Tiffanie DAMON, Arnold Moreno RN, Arnold Moreno RN, Arnold Morton 02/25/18 11:17:52 02/25/18 11:17:52 02/25/18 11:17:52 Entry 4 Entry 5 Case Attendee Smith ARZOLA, Zoila Szymanski CST, Jeannine López Role Performed Scrub - [...] RN, Smith Hi CST, Nessa Bhardwaj CST, Jeannine López Time Out [...] tissue Entry 1 Skin Integrity Warm, Dry, [place], Unable Outcomes Met? Yes to Visualize Last Modified By: Arnold Moreno RN 02/25/18 10:07:22 Post-Care Text: The patient is free from signs and symptoms of injury caused by extraneous objects General Comments: pt partially clothed, unable to assess all of skin/ hetal dmaon Patient Positioning FT Pre-Care Text: Identifies physical [...] Instruments Status Correct Correct Time By Ruffing NURSE INTERN, Zoila E Ruffing NURSE INTERN, Zoila E Outcomes Met? Yes Yes Last [...] RN Patient Status Stable Skin. Condition Warm, [place], Dry Airway Maintenance Oxygen in Use? No Outcomes Met? Yes Last Modified By: Arnold Moreno RN 02/25/18 10:11:00 Post-Care Text: The patient is free from signs and symptoms of injury related to transfer/transport General Comments: asu called, transported to asu by or transporter/ hetal rn Dressing/Packing FT Pre-Care Text: Administers care [...] safely administered during the perioperative period For Zhang-Furnas please see scanned medication reconcilliation form for medications used at the field during the procedure. Implant Log FT Pre-Care Text: Records devices implanted during the operative or invasive procedure Entry 1 Implant/Explant Implant Implant Identification Description ROSENDA [id number] 12.50MM Serial Number [id number] 13.50 [[id number]] Lot Number [id number] Physician Pediatrician FT-[employer]OM[employer] Catalog ?# [id number][F] Expiration Date 05/23/19 Usage Data Implant Site right eye Quantity 1 Outcomes Met? Yes Last Modified By: Arnold Moreno RN 02/25/18 11:08:01 Post-Care Text: The patient is free from signs and symptoms of injury caused by extraneous objects Case Comments Finalized By: Elayne Agosto CST Document Signatures Signed By: Arnold Moreno RN 02/25/18 11:18 Elayne Agosto CST 02/26/18 14:08 Normal [facility] History and Physicalon 02-25 History and [...] in the near future.Hardeep Fraga D.O.aekDictated: 02/24/2018 #[id number] 02/25/2018 #[id number]: Hardeep Fraga D.O. [facility] Comment on above: Result Comment: Elec tronically Signed By: Hardeep Fraga DO\.br\Date and Time Signed: 02/25/18 10:24 EST Inpatient Patient Summaryon 02-25-2018 [facility] Inst[facility] INFORMATION Name: PANKAJ PAYNE PHYSICIANS Admitting Physician: Hardeep Fraga DOAttending Physician: Hardeep Fraga DO PCP: FRANTZ CONLEY MD BDischarge Diagnosis: Cataract Comment: PATIENT EDUCATION INFORMATIONInstructions:M edication Leaflets:Follow up:With: Address: When: Hardeep Fraga [facility] [address] [facility], [place] [address] Business (1) Within 1 to 2 days MEDICATION LISTComment: [facility] Main OR PACU II [facility] Main OR PACU II Record PACU Phase II Doc ument Type FT Summary Primary Physician: Hardeep Fraga DO Finalized Date/Time: 02/25/18 12:33:41 Pt. Name: PAYNEPANKAJ D.O.B./Sex: 1945 Male Med Rec #: [id number] Physician: Hardeep Fraga DO Financial #: [id number] Pt. Type: A Room/Bed: [place] [address] Admit/Disch: 02/25/18 08:23:55 - Institution: Case Times [...] By: Lissa Pope RN 02/25/18 12:33 Normal [facility] Main OR Preoperative Recordo n 02-25-2018 Main OR Preoperative Record PreOp Document Type FT Summary Primary Physician: Hardeep Fraga DO Finalized Date/Time: 02/25/18 11:05:22 Pt. Name: PANKAJ PAYNE/Sex: 1945 Male Med Rec #: [id number] Physician: Hardeep Fraga DO Financial #: [id number] Pt. Type: A Room/Bed: [facility] Admit/Disch: 02/25/18 08:23:55 - Institution: Case Times [...] By: Arnold Moreno RN 02/25/18 11:05 Normal [facility] Main OR Preoperative Record Holding Area Document Type FT Summary Primary Physician: Hardeep Fraga DO Finalized Date/Time: 02/25/18 08:46:23 Pt. Name: PAYNEPANKAJ/Sex: 1945 Male Med Rec #: [id number] Physician: Hardeep Fraga DO Financial #: [id number] Pt. Type: A Room/Bed: [place] [address] Admit/Disch: 02/25/18 08:23:55 - Institution: Case Times [...] By: Lissa Pope RN 02/25/18 08:46 Normal [facility] Patient Education - Texton 1 04-28-2017 Patient Education - Text [facility] Progress Note-Physicianon Protein mass conc [...] Estimated Blood Loss: 0 ml. Complications: None. [facility] Comment on above: Result Comment: [...] day for postoperative care.Hardeep Fraga D.O.lkrDictated: 02/11/2018 #[id number]: 02/12/2018 #[id number]: Hardeep Fraga D.O. [facility] Comment on above: Result Comment: Elec tronically Signed By: Hardeep Fraga DO\.br\Date and Time Signed: 02/17/18 08:38 EST Coding Summary.on 02-12-2018 Coding Summary. 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 Name: PANKAJ PAYNE./Sex: 1945 Male Med Rec #: [id number] Physician: Hardeep Fraga DO Financial #: [id number] Pt. Type: A Room/Bed: [place] [address] Admit/Disch: 02/11/18 08:31:00 - 02/11/18 12:00:00 Institution: [...] HEMANT Macdonald RN, Andrea 02/12/18 07:26 [facility] History and Physicalon 02-11 History and [...] in the near future.Hardeep Fraga D.O.aekDictated: 02/10/2018 #[id number] 02/11/2018 #[id number]: Hardeep Fraga D.O. [facility] Comment on above: Result Comment: Elec tronically Signed By: Hardeep Fraga DO\.br\Date and Time Signed: 02/11/18 08:10 EST Inpatient Patient Summaryon 02-11-2018 [facility] Instructions[facility] INFORMATION Name: PANKAJ PAYNE PHYSICIANS Admitting Physician: Hardeep Fraga DOAttending Physician: Hardeep Fraga DO PCP: FRANTZ CONLEY MD BDischarge Diagnosis: Cataract Comment: PATIENT EDUCATION INFORMATIONInstructions:Robert CORREIA- After Surgery Eye (Custom)Medication Leaflets:Follow up:With: Address: When: Hardeep Fraga [facility] [place] [address] [facility], [facility] [address] [place] [address] Business (1) Within 1 to 2 days MEDICATION LISTComment: [facility] Main OR Intraoperative Recor don 02-11-2018 Main OR Intraoperative Record IntraOp Document Type FT Summary Primary Physician: Hardeep Fraga DO Finalized Date/Time: 02/11/18 13:09:49 Pt. Name: PANKAJ PAYNE/Sex: 1945 Male [facility] Rec #: [id number] Physician: Hardeep Fraga DO Financial #: [id number] Pt. Type: A Room/Bed: [facility] Admit/Disch: 02/11/18 08:31:00 - 02/11/18 12:00:00 Institution: Case Times FT Entry 1 Patient Times In Room 02/11/18 11:04:00 Out Room 02/11/18 11:24:00 Procedure Times Start 02/11/18 11:11:00 Stop 02/11/18 11:22:00 Anesthesia Times Last Modified By: Elayne Agosto CST 02/11/18 11:24:30 General Comments: 02/11/18 Chart opened to review and send charges Estela Agosto NURSE INTERN Case Attendance FT Entry 1 Entry 2 Entry 3 Case Attendee Hardeep Fraga DO RN, Rosanna Moreno RN, Arnold Morton Role Performed Surgeon - Primary Kickboxing Instructor - Primary Kickboxing Instructor - Primary Time In 02/11/18 11:04:00 02/11/18 11:04:00 02/11/18 11:04:00 Time Out 02/11/18 11:24:00 02/11/18 11:24:00 02/11/18 11:24:00 Procedure CATARACT EXTRACTION W/ CATARACT EXTRACTION W/ CATARACT EXTRACTION W/ INTRAOCULAR LENS(Left) INTRAOCULAR LENS(Left) INTRAOCULAR LENS(Left) Comments Last Modified By: Siddharth RN, Rosanna Messina RN, Rosanna Vanegas RN 02/11/18 11:24:31 02/11/18 11:24:31 02/11/18 11:24:31 Entry 4 Entry 5 Case Attendee Mayo ARZOLA, Marisela Marcano NURSE INTERN/Nusrat ZAMORA Role Performed Scrub - Primary Scrub [...] Hardeep Fraga DO, Given Participants Siddharth DAMON, Rosanna Morton, Tiffanie DAMON, Krys Mar NURSE INTERN/SA, Mayo Silverio CST, Marisela Rodriguez Time Out [...] safely administered during the perioperative period For [facility] please see scanned medication reconcilliation form for medications used at the field during the procedure. Implant Log FT Pre-Care Text: Records devices implanted during the operative or invasive procedure Entry 1 Implant/Explant Implant Implant Identification Description ROSENDA [id number] 12.50MM Lot Number [id number] 17.50 [[id number]][F] Physician Pediatrician [facility] [employer] [facility] Catalog ?# [id number] [F] Size 17.5 Expiration Date 09/21/18 Usage Data Implant Site LEFT EYE Quantity 1 Outcomes Met? Yes Last Modified By: Rosanna Messina RN 02/11/18 11:19:54 Post-Care Text: The patient is free from signs and symptoms of injury caused by extraneous objects Case Comments Finalized By: Elayne Agosto CST Document Signatures Signed By: Rosanna Messina RN 02/11/18 11:24 Elayne Agosto CST 02/11/18 13:09 [facility] Main OR PACU II Recordon Main OR PACU II Record PACU Phase II Doc ument Type FT Summary Primary Physician: Hardeep Fraga DO Finalized Date/Time: 02/11/18 12:09:46 Pt. Name: PANKAJ PAYNE/Sex: 1945 Male Med Rec #: [id number] Physician: Hardeep Fraga DO Financial #: [id number] Pt. Type: A Room/Bed: [place] [address] Admit/Disch: 02/11/18 08:31:00 - Institution: Case Times [...] By: Lisa Rubi RN 02/11/18 12:09 [facility] Patient Education - Texton 1 04-13-2017 Patient Education - Text [facility] Progress Note-Physicianon Protein mass conc [...] Blood Loss: 0 ml. Complications: None. [facility] Comment on above: Result Comment: Elec tronically Signed By: Aleksandra Fraga DO\Date and Time Signed: 02/11/18 11:23 EST Vital Signs Date Time Vital Sign Value Performing Clinician Facility 11-11-2024 13:33-0400 Body height 157.48 cm Frantz Conley II Work Phone: [facility] 11-11-2024 13:33-0400 Body mass index (BMI) [Ratio] 32.3 kg/m2 Frantz Conley II Work Phone: [facility] 11-11-2024 13:33-0400 Body weight 80.28 kg Frantz Colney II Work Phone: [facility] 11-11-2024 13:33-0400 Diastolic blood pressure 79 mm[Hg] Frantz Conley II Work Phone: [facility] 11-11-2024 13:33-0400 Heart rate 61 /min Frantz Conley II Work Phone: [facility] 11-11-2024 13:33-0400 Systolic blood pressure 120 mm[Hg] Frantz Conley II Work Phone: [facility] 10-20-2024 14:31-0400 Body height 166.4 cm Rosanna Hemmer PA Work Phone: [facility] 10-20-2024 14:31-0400 Body mass index (BMI) [Ratio] 29.24 kg/m2 Rosanna Hemmer PA Work Phone: [facility] 10-20-2024 14:31-0400 Body weight 80.92 kg Rosanna Hemmer PA Work Phone: [facility] 10-20-2024 14:31-0400 Diastolic blood pressure 84 mm[Hg] Rosanna Hemmer PA Work Phone: [facility] 10-20-2024 14:31-0400 Heart rate 69 /min Rosanna Hemmer PA Work Phone: [facility] 10-20-2024 14:31-0400 Respiratory rate 16 /min Rosanna MIRZA Work Phone: [facility] 10-20-2024 14:31-0400 SaO2% (BldA) [Mass fraction] 96 % Rosanna MIRZA Work Phone: [facility] 10-20-2024 14:31-0400 Systolic blood pressure 132 mm[Hg] Rosanna MIRZA Work Phone: [facility] 10-05-2024 11:04-0400 Body height 166.4 cm Frantz Conley MD Work Phone: [facility] 10-05-2024 11:04-0400 Body mass index (BMI) [Ratio] 29.66 kg/m2 Frantz Conley MD Work Phone: [facility] 10-05-2024 11:04-0400 Body weight 82.1 kg Frantz Conley MD Work Phone: [facility] 10-05-2024 11:04-0400 Diastolic blood pressure 62 mm[Hg] Frantz Conley MD Work Phone: [facility] 10-05-2024 11:04-0400 Heart rate 48 /min Frantz Conley MD Work Phone: [facility] 10-05-2024 11:04-0400 SaO2% (BldA) [Mass fraction] 97 % Frantz Conley MD Work Phone: [facility] 10-05-2024 11:04-0400 Systolic blood pressure 110 mm[Hg] Frantz Conley MD Work Phone: [facility] 09-08-2024 14:56-0400 Body height 165.1 cm Crescencio Marin DO Work Phone: [facility] 09-08-2024 14:56-0400 Body mass index (BMI) [Ratio] 30.29 kg/m2 Crescencio Marin DO Work Phone: [facility] 09-08-2024 14:56-0400 Body weight 82.56 kg Crescencio Marin DO Work Phone: [facility] 09-08-2024 14:56-0400 Diastolic blood pressure 68 mm[Hg] Crescencio Marin DO Work Phone: [facility] 09-08-2024 14:56-0400 Heart rate 58 /min Crescencio Marin DO Work Phone: [facility] 09-08-2024 14:56-0400 Systolic blood pressure 122 mm[Hg] Crescencio Marin DO Work Phone: [facility] 04-30-2024 13:05-0500 Body height 157.48 cm Frantz Conley II Work Phone: [facility] 04-30-2024 13:05-0500 Body mass index (BMI) [Ratio] 32 kg/m2 Frantz Conley II Work Phone: [facility] 04-30-2024 13:05-0500 Body weight 79.37 kg Frantz Conley II Work Phone: [facility] 03-12-2024 10:59-0500 Body height 166.4 cm Frantz Conley MD Work Phone: [facility] 03-12-2024 10:59-0500 Body mass index (BMI) [Ratio] 29.17 kg/m2 Frantz Conley MD Work Phone: [facility] 03-12-2024 10:59-0500 Body weight 80.74 kg Frantz Conley MD Work Phone: [facility] 03-12-2024 10:59-0500 Diastolic blood pressure 66 mm[Hg] Frantz Conley MD Work Phone: [facility] 03-12-2024 10:59-0500 Heart rate 56 /min Frantz Conley MD Work Phone: [facility] 03-12-2024 10:59-0500 SaO2% (BldA) [Mass fraction] 98 % Frantz Conley MD Work Phone: [facility] 03-12-2024 10:59-0500 Systolic blood pressure 122 mm[Hg] Frantz Conley MD Work Phone: [facility] 01-01-2024 11:24-0400 Heart rate 52 /min Crescencio Marin DO Work Phone: [facility] 01-01-2024 11:16-0400 Body height 165.1 cm Crescencio Marin DO Work Phone: [facility] 01-01-2024 11:16-0400 Body mass index (BMI) [Ratio] 29.09 kg/m2 Crescencio Marin DO Work Phone: [facility] 01-01-2024 11:16040 Body weight 79.29 kg Crescencio Marin DO Work Phone: [facility] 01-01-2024 11:16-0400 Diastolic blood pressure 60 mm[Hg] Crescencio Marin DO Work Phone: [facility] 01-01-2024 11:16-0400 Systolic blood pressure 118 mm[Hg] Crescencio Marin DO Work Phone: [facility] 10-23-2023 11:17-0400 Diastolic blood pressure 84 mm[Hg] II Frantz Conely Work Phone: [facility] 10-23-2023 11:17-0400 Heart rate 70 /min II Frantz Conley Work Phone: [facility] 10-23-2023 11:17-0400 Respiratory rate 18 /min II Frantz Conley Work Phone: [facility] 10-23-2023 11:17-0400 SaO2% (BldA) [Mass fraction] 98 % II Frantz Conley Work Phone: [facility] 10-23-2023 11:17-0400 Systolic blood pressure 146 mm[Hg] II Frantz Conley Work Phone: [facility] 10-23-2023 09:10-0400 Body height 157.48 cm II Frantz Conley Work Phone: [facility] 10-23-2023 09:10-0400 Body weight 78.01 kg II Frantz Conley Work Phone: [facility] 09-17-2023 11:02-0400 Body height 165.1 cm II Frantz Conley Work Phone: [facility] 09-17-2023 11:02-0400 Body mass index (BMI) [Ratio] 28.8 kg/m2 II Frantz Conley Work Phone: [facility] 09-17-2023 11:02-0400 Body weight 78.47 kg II Frantz Conley Work Phone: [facility] 09-17-2023 11:02-0400 Diastolic blood pressure 67 mm[Hg] II Frantz Conley Work Phone: [facility] 09-17-2023 11:02-0400 Heart rate 53 /min II Frantz Conley Work Phone: [facility] 09-17-2023 11:02-0400 Systolic blood pressure 114 mm[Hg] II Frantz Conley Work Phone: [facility] 06-20-2023 10:01-0400 Diastolic blood pressure 68 mm[Hg] Crescencio Marin DO Work Phone: [facility] 06-20-2023 10:01-0400 Heart rate 63 /min Crescencio Marin DO Work Phone: [facility] 06-20-2023 10:01-0400 Systolic blood pressure 126 mm[Hg] Crescencio Marin DO Work Phone: [facility] 06-20-2023 10:00-0400 Body height 165.1 cm Crescencio Marin DO Work Phone: [facility] 06-20-2023 10:00-0400 Body mass index (BMI) [Ratio] 30.29 kg/m2 Crescencio Marin DO Work Phone: [facility] 06-20-2023 10:00-0400 Body weight 82.56 kg Crescencio Marin DO Work Phone: [facility] 05-08-2023 10:30-0500 Body height 166.4 cm Frantz Conley MD Work Phone: [facility] 05-08-2023 10:30-0500 Body mass index (BMI) [Ratio] 29.66 kg/m2 Frantz Conley MD Work Phone: [facility] 05-08-2023 10:30-0500 Body weight 82.1 kg Frantz Conley MD Work Phone: [facility] 05-08-2023 10:30-0500 Diastolic blood pressure 66 mm[Hg] Frantz Conley MD Work Phone: [facility] 05-08-2023 10:30-0500 Heart rate 52 /min Frantz Conley MD Work Phone: [facility] 05-08-2023 10:30-0500 SaO2% (BldA) [Mass fraction] 99 % Frantz Conley MD Work Phone: [facility] 05-08-2023 10:30-0500 Systolic blood pressure 120 mm[Hg] Frantz Conley MD Work Phone: [facility] 09-28-2022 10:27-0400 Body temperature 97.8 [degF] II Frantz Conley Work Phone: [facility] 09-28-2022 10:27-0400 Body weight 81.19 kg II Frantz Conley Work Phone: [facility] 09-28-2022 10:27-0400 Diastolic blood pressure 61 mm[Hg] II Frantz Conley Work Phone: [facility] 09-28-2022 10:27-0400 Heart rate 39 /min II Frantz Conley Work Phone: [facility] 09-28-2022 10:27-0400 Respiratory rate 16 /min II Frantz Conley Work Phone: [facility] 09-28-2022 10:27-0400 SaO2% (BldA) [Mass fraction] 97 % II Frantz Conley Work Phone: [facility] 09-28-2022 10:27-0400 Systolic blood pressure 143 mm[Hg] II Frantz Conley Work Phone: [facility] 09-18-2022 10:00-0400 Body height 165.1 cm Mick Branch Other [facility] [place] [employer] Other 09-18-2022 10:00-0400 Body mass index (BMI) [Ratio] 29.12 kg/m2 Mick Branch Other [employer] Other 09-18-2022 10:00-0400 Body weight 79.38 kg Mick Branch Other [employer] Other 09-18-2022 10:00-0400 Diastolic blood pressure 76 mm[Hg] Mick Branch Other [employer] Other 09-18-2022 10:00-0400 Systolic blood pressure 113 mm[Hg] Mick Branch Other [employer] Other 08-08-2022 13:49-0400 Body height 165.1 cm II Frantz Conley Work Phone: [facility] 09-19-2021 13:10-0400 Diastolic blood pressure 64 mm[Hg] II Frantz Conley Work Phone: [facility] 09-19-2021 13:10-0400 Heart rate 68 /min II Frantz Conley Work Phone: [facility] 09-19-2021 13:10-0400 Respiratory rate 16 /min II Frantz Conley Work Phone: [facility] 09-19-2021 13:10-0400 SaO2% (BldA) [Mass fraction] 96 % II Frantz Conley Work Phone: [facility] 09-19-2021 13:10-0400 Systolic blood pressure 119 mm[Hg] II Frantz Conley Work Phone: [facility] 09-19-2021 11:54-0400 Body height 165.1 cm II Frantz Conley Work Phone: [facility] 09-19-2021 11:54-0400 Body mass index (BMI) [Ratio] 29.9 kg/m2 II Frantz Conley Work Phone: [facility] 09-19-2021 11:54-0400 Body temperature 98.3 [degF] II Frantz Conley Work Phone: [facility] 09-19-2021 11:54-0400 Body weight 81.64 kg II Frantz Conley Work Phone: [facility] 09-13-2021 15:15-0400 Body height 165.1 cm Mick Dittaram Other [facility] [place] [employer] Other 09-13-2021 15:15-0400 Body mass index (BMI) [Ratio] 29.95 kg/m2 Mick Branch Other [employer] Other 09-13-2021 15:15-0400 Body weight 81.65 kg Mick Ditty Other [employer] Other 08-17-2021 12:00-0400 Body temperature 98.01 [degF] Leonard Johnson MD [facility] 08-17-2021 11:15-0400 Heart rate 69 /min Leonard Johnson MD [facility] 08-17-2021 11:15-0400 Respiratory rate 19 /min Leonard Johnson MD [facility] 08-17-2021 11:15-0400 SaO2% (BldA) [Mass fraction] 98 % [facility] [employer] 08-17-2021 10:00-0400 Diastolic blood pressure 80 mm[Hg] Leonard [facility] [employer] 08-17-2021 10:00-0400 Systolic blood pressure 139 mm[Hg] [facility] [employer] 08-16-2021 21:48-0400 Body height 165.1 cm Leonard [facility] [employer] 08-16-2021 21:48-0400 Body mass index (BMI) [Ratio] 30.05 kg/m2 Leonard [facility] [employer] 08-16-2021 21:48-0400 Body weight 81.92 kg Leonard Johnson [facility] 07-11-2021 11:45-0400 Body height 165.1 cm Mick Branch Other [employer] Other 07-11-2021 11:45-0400 Body mass index (BMI) [Ratio] 30.45 kg/m2 Mick Branch Other [employer] Other 07-11-2021 11:45-0400 Body weight 83.01 kg Mick Ibanezaram Other [employer] Other 07-11-2021 11:45-0400 Diastolic blood pressure 77 mm[Hg] Mick Branch Other [employer] Other 07-11-2021 11:45-0400 Systolic blood pressure 126 mm[Hg] Mick Branch Other [employer] Other Encounters Encounter Date Encounter Type Care Provider Facility Start: 12-25-2024 End: 12-25-2024 Clinisync Result Encounter Generic External Data Provider [facility] External Department Unsolicited Start: 12-25-2024 End: 12-25-2024 Clinisync Result Encounter Generic External Data Provider [facility] External Department Unsolicited Start: 12-25-2024 End: 12-25-2024 ambulatory Frantz Conley II Work Phone: [facility] Work Phone: Start: 12-25-2024 End: 12-25-2024 Departed Referred Rc Hernandez MD -LAB [facility] Start: 12-07-2024 End: 12-07-2024 Clinisync Result Encounter Generic External Data Provider [facility] External Department Unsolicited Start: 12-07-2024 End: 12-07-2024 Clinisync Result Encounter Generic External Data Provider [facility] External Department Unsolicited Start: 11-11-2024 End: 11-11-2024 ambulatory Frantz Conley II Work Phone: [facility] Work Phone: Start: 11-11-2024 End: 11-11-2024 Patient encounter procedure Mick Branch MD -[facility] Work Phone: Start: 11-02-2024 End: 11-02-2024 Patient encounter procedure Mick Branch MD -Lab [facility] Work Phone: Start: 11-02-2024 End: 11-02-2024 ambulatory Frantz Conley II Work Phone: [facility] Work Phone: Start: 10-20-2024 End: 10-20-2024 Patient encounter procedure Rosanna MIRZA Work Phone: [facility]athon D[facility] Comment on above: Medicare annual well ness visit, subsequent (Primary Dx); ACP (advance care planning); Chronic insomnia; Other chronic pain; Benign essential HTN ; Benign hypertensive heart and CKD, 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), w CHF (HCC); Coronary artery disease involving [place] coronary artery of [place] heart without angina pectoris ; Dilatation of [...] Bamboo flowsheet Rosanna Daly PA Work Phone: [facility] Start: 10-20-2024 End: 10-20-2024 Bamboo flowsheet Rosanna Daly PA Work Phone: [facility] Start: 10-05-2024 End: 10-05-2024 Office outpatient visit 25 minutes Frantz Conley MD Work Phone: [facility] Comment on above: Sinus bradycardia (P rimary Dx); PVCs (premature ventricular contractions); Coronary artery disease involving [place] coronary artery of [place] heart without angina pectoris ; Liver cirrhosis [...] minutes Crescencio Marin DO Work Phone: [facility] Comment on above: ASHD (arteriosclerot ic heart disease); History of coronary artery stent placement; PVC (premature ventricular contraction); BMI 30.0-30.9,adult; Former cigarette smoker; Hyperlipidemia, unspecified hyperlipidemia type Start: 09-08-2024 End: 09-08-2024 ambulatory [facility] Start: 05-21-2024 End: 05-21-2024 Patient encounter procedure Frantz Conley II Work Phone: [facility] [place] Work Phone: Start: 05-21-2024 End: 05-21-2024 ambulatory Franzt Conley II Work Phone: [facility] Work Phone: Start: 04-30-2024 End: 04-30-2024 ambulatory Frantz Conley II Work Phone: [facility] Work Phone: Start: 04-30-2024 End: 04-30-2024 Patient encounter procedure Frantz Conley II Work Phone: [facility] [place] Work Phone: Start: 04-22-2024 End: 04-22-2024 Refill Day Saturday [employer] Work Phone: [facility] Comment on above: Mixed hyperlipidemia (CMS/HCC) (Primary Dx) Start: 04-21-2024 End: 04-21-2024 Clinisync Result Encounter Generic External Data Provider [facility] External Department Unsolicited Start: 04-21-2024 End: 04-21-2024 Clinisync Result Encounter Generic External Data Provider [facility] External Department Unsolicited Start: 03-12-2024 End: 03-12-2024 Brandon flowsheet Frantz Conley MD Work Phone: [facility] Start: 03-12-2024 End: 03-12-2024 Loganboo flowsheet Frantz Conley MD Work Phone: [facility] Start: 03-12-2024 End: 03-12-2024 Office outpatient visit 25 minutes Frantz Conley MD Work Phone: [facility] Comment on above: Benign essential HTN (CMS/HCC) (Primary Dx); Flu vaccine need; Coronary artery disease involving [place] coronary artery of [place] heart without angina pectoris (CMS/HCC); Mixed hyperlipidemia (CMS/HCC); Acquired hypothyroidism (CMS/HCC); Prostate cancer screening Start: 03-12-2024 End: 03-12-2024 ambulatory FRANTZ CONLEY Not Available Start: 01-01-2024 End: 01-01-2024 ambulatory [facility] Ambulatory Start: 01-01-2024 End: 01-01-2024 Office outpatient visit 25 minutes [facility] Work Phone: [facility] Comment on above: ASHD (arteriosclerot [...] / Non-visit II Montrell Conley Work Phone: [facility] Work Phone: Start: 10-23-2023 End: 10-23-2023 Admission to same day surgery center II Frantz Conley Work Phone: [facility] Work Phone: Start: 10-23-2023 End: 10-23-2023 ambulatory II Frantz Conley Work Phone: [facility] Work Phone: Start: 10-01-2023 End: 10-01-2023 ambulatory II Frantz Conley Work Phone: [facility] Work Phone: Start: 10-01-2023 End: 10-01-2023 Patient encounter procedure II Frantz Conley Work Phone: [facility] [place] Work Phone: Start: 09-17-2023 End: 09-17-2023 ambulatory II Frantz Conley Work Phone: [facility] Work Phone: Start: 09-17-2023 End: 09-17-2023 Patient encounter procedure II Frantz Conley Work Phone: [facility] [place] Work Phone: Start: 06-20-2023 End: 06-20-2023 Office outpatient visit 40 minutes Crescencio Marin DO Work Phone: [facility] Comment on above: ASHD (arteriosclerot ic heart disease); History of coronary artery stent placement; Ascending aorta dilation (CMS/HCC); Iron deficiency anemia, unspecified iron deficiency anemia type; PVC (premature ventricular contraction); Former cigarette smoker Start: 06-05-2023 End: 06-05-2023 ambulatory II Frantz Conley Work Phone: [facility] Work Phone: Start: 06-05-2023 End: 06-05-2023 Patient encounter procedure II Frantz Conley Work Phone: [facility] [place] Work Phone: Start: 05-08-2023 Bamboo flowsheet Frantz [...] 05-01-2023 ambulatory MD Jose Manning Work Phone: [facility] Work Phone: Start: 05-01-2023 End: 05-01-2023 Departed Referred MD Jose Manning Work Phone: [facility] Start: 10-04-2022 End: 10-04-2022 ambulatory II Frantz Jarvis Work Phone: [facility] Work Phone: Start: 10-04-2022 End: 10-04-2022 Patient encounter procedure II Frantz Conley Work Phone: [facility] [facility] [place] Work Phone: Start: 09-28-2022 End: 09-28-2022 ambulatory II Frantz Conley Work Phone: [facility] Work Phone: Start: 09-28-2022 End: 09-28-2022 Registered Recurring II Frantz Conley Work Phone: [facility] Work Phone: Start: 09-18-2022 End: 09-18-2022 ambulatory Mick Branch Other [employer] Other Start: 09-18-2022 Patient encounter procedure Mick Branch [facility] Start: 11-08-2021 End: 11-09-[address] KARL MENON Facility:[facility] Start: 11-06-2021 End: 11-06-2021 Patient encounter procedure II Frantz Conley Work Phone: [facility] Start: 10-10-2021 End: 10-10-2021 Patient encounter procedure II Frantz Conley Work Phone: [facility] [place] Start: 09-20-2021 End: 09-20-2021 Patient encounter procedure II Frantz Conley Work Phone: [facility] [place] Start: 09-19-2021 End: 09-19-2021 Admission to same day surgery center II Frantz Conley Work Phone: [facility] Start: 09-15-2021 End: 09-15-2021 Patient encounter procedure II Frantz Conley Work Phone: [facility] Start: 09-13-2021 End: 09-13-2021 ambulatory Mick Branch Other [employer] Other Start: 09-13-2021 Patient encounter procedure Mick Branch [facility] Start: 08-16-2021 End: 08-17-2021 Evaluation and management of inpatient SHANTANU MARIE [facility] Start: 08-16-2021 End: 08-17-2021 Evaluation and management of inpatient Leonard Johnson MD [facility] 1 Comment on above: Subarachnoid hemorrh age following injury, no loss of consciousness, initial encounter (HCC) (Primary Dx); Facial laceration, initial encounter Start: 08-16-2021 End: 08-16-2021 ambulatory KEILY RENTERIA Facility: Start: 07-12-2021 End: 07-13-2021 ambulatory MICK BRANCH Facility:[facility] Start: 07-11-2021 End: 07-11-2021 ambulatory Mick Branch Other [employer] Other Start: 07-11-2021 FQ[facility] visit new patient Mick Branch [facility] Start: 03-01-2021 End: 03-01-[address] FRANTZ CONLEY Facility:[facility] Start: 02-03-2021 End: 02-03-[address] FRANTZ CONLEY Facility: Start: 10-30-2018 End: 10-31-2018 Patient encounter procedure JOSIAH SCHAFER Facility:[facility] Start: 02-28-2018 End: 03-01-2018 Patient encounter procedure INDIA ANDREA Facility:[facility] Start: 02-25-2018 End: 02-25-2018 Patient encounter procedure Hardeep Fraga Facility:[facility] Start: 02-11-2018 End: 02-11-2018 Patient encounter procedure Hardeep Fraga Facility:[facility] Procedures Date Procedure Procedure Detail Performing Clinician Start: 12-25-2024 URINE CULTURE - [facility] Generic External Data Provider Start: 12-07-2024 ALL CBC WITH AUTO DIFF Generic External Data Provider Start: 10-01-2024 ALL BASIC METABOLIC PANEL Generic Plaque Maker al Data Provider Start: 10-01-2024 ALL LIPID [...] History of coronary artery stent placement Crescencio S Tomas JEAN Work Phone: Start: 06-20-2023 Ecg [...] abdomen and pelvis with contrast II Frantz Jarvis Work Phone: Start: 09-20-2021 Ultrasonography of liver II Frantz Conley Work Phone: Start: 09-19-2021 Esophagogastroduodenoscopy II Frantz Rehan roman Work Phone: Start: 08-17-2021 BASIC METABOLIC [...] History of coronary artery stent placement Rosanna MIRZA Work Phone: Plan of Treatment Date Care Activity Detail Author Start: 04-29-2028 Lipid panel Lipid Panel [facility] Start: 10-20-2025 Medicare Annual Wellness (AWV) Medicare Annual Wellness (AWV) [facility] Start: 09-14-2025 End: 09-14-2025 Patient encounter procedure 09/14/2025 2:00 PM EDT Office Visit [facility] [address] [place] [address] Crescencio Marin DO [address] [facility] [address] [place] [address] [facility] Start: 12-25-2024 Bacteria identified in Urine by Culture Urine Culture [facility] Start: 12-25-2024 Urine culture [facility] Start: 12-07-2024 End: 12-07-2024 Patient encounter procedure [facility] Start: 11-23-2024 Influenza vaccination Influenza Vaccine (#1) [facility] Start: 10-20-2024 Medicare Annual Wellness (AWV) Medicare Annual Wellness (AWV) [facility] Start: 10-20-2024 End: 10-20-2024 Patient encounter procedure [facility] Comment on above: Arrived Start: 10-05-2024 End: 10-05-2024 Patient encounter procedure 10/05/2024 11:00 AM EDT Office Visit [facility] [address] [facility] [address] [place] [id number] Frantz Conley MD [address] [facility] [address] [place] [address] [facility] Start: 09-08-2024 End: 09-08-2024 Patient encounter procedure 09/08/2024 3:00 PM EDT Office Visit [facility] [address] [facility] [address] [place] [phone] Crescencio Marin DO [address] [facility] [address] [place] [address] [facility] Start: 09-08-2024 End: 09-08-2025 Alanine aminotransferase [Enzymatic activity/volume] in Serum or Plasma by With P-5'-P Alanine Aminotransferase Lab Routine ASHD (arteriosclerotic heart disease) Hyperlipidemia, unspecified hyperlipidemia type Expected: 09/08/2024 (Approximate), Expires: 09/08/2025 [facility] Service Area Work Phone: Comment on above: Expected: 09/08/2024 (Approximate), Expi res: 09/08/2025 Start: 09-08-2024 End: 09-08-2025 Aspartate aminotransferase [Enzymatic activity/volume] in Serum or Plasma by With P-5'-P Aspartate Aminotransferase Lab Routine ASHD (arteriosclerotic heart disease) Hyperlipidemia, unspecified hyperlipidemia type Expected: 09/08/2024 (Approximate), Expires: 09/08/2025 [facility] Work Phone: Comment on above: Expected: 09/08/2024 (Approximate), Expi res: 09/08/2025 Start: 09-08-2024 End: 09-08-2025 Basic metabolic 2000 panel - Serum or Plasma Basic Metabolic Panel Lab Routine ASHD (arteriosclerotic heart disease) PVC (premature ventricular contraction) Expected: 09/08/2024 (Approximate), Expires: 09/08/2025 [facility] Work Phone: Comment on above: Expected: 09/08/2024 (Approximate), Expi res: 09/08/2025 Start: 09-08-2024 End: 09-08-2025 Lipid 1996 panel - Serum or Plasma Lipid Panel Lab Routine ASHD (arteriosclerotic heart disease) Hyperlipidemia, unspecified hyperlipidemia type Expected: 09/08/2024 (Approximate), Expires: 09/08/2025 [facility] Work Phone: Comment on above: Expected: 09/08/2024 (Approximate), Expi res: 09/08/2025 Start: 04-30-2024 Varlw-8-qknzswywqgn.tumor marker [Mass/volume] in Serum or Plasma [facility] Start: 03-12-2024 End: 03-12-2025 Lipid 1996 panel - Serum or Plasma Lipid panel Lab Routine Mixed hyperlipidemia (CMS/HCC) Expected: 03/12/2024 (Approximate), Expires: 03/12/2025 [facility] Comment on above: Expected: 03/12/2024 (Approximate), Expi res: 03/12/2025 Start: 03-12-2024 End: 03-12-2025 TSH W/REFLEX TO FT4 TSH W/REFLEX TO FT4 Lab Routine Acquired hypothyroidism (CMS/HCC) Expected: 03/12/2024 (Approximate), Expires: 03/12/2025 [facility] Comment on above: Expected: 03/12/2024 (Approximate), Expi res: 03/12/2025 Start: 03-12-2024 End: 03-12-2024 Patient encounter procedure [facility] Comment on above: Arrived Start: 12-25-2023 End: 12-25-2023 Patient encounter procedure 12/25/2023 10:20 AM EDT Office Visit [facility] [address] [place] [phone] Crescencio Marin DO [address] [place] [address] [facility] Start: 11-24-2023 COVID-19 Vaccine ( season) COVID-19 Vaccine () [facility] Start: 11-24-2023 COVID-19 Vaccine () COVID-19 Vaccine () [facility] Start: 11-24-2023 Influenza vaccination Influenza Vaccine (#1) [facility] Start: 11-06-2023 End: 11-06-2023 Patient encounter procedure 11/06/2023 11:00 AM EDT Office Visit [facility] [address] [facility] [address] [place] [address] Frantz Conley MD [address] [facility] [address] [place] [address] [facility] Start: 10-23-2023 [facility] Start: 10-21-2023 End: 10-21-2023 Patient encounter procedure 10/21/2023 11:00 AM EDT Office Visit [facility] [address] [facility] [address] [place] [address] Frantz Conley MD [address] [facility] [address] [place] [address] [facility] Start: 09-17-2023 Llbnn-5-diohyutvgyx.tumor marker [Mass/volume] in Serum or Plasma [facility] Start: 08-23-2023 Medicare Annual Wellness (AWV) Medicare Annual Wellness (AWV) [facility] Start: 06-26-2023 End: 06-26-2023 Professional / ancillary services management 06/26/2023 10:00 AM EDT Ancillary Procedure [facility] [address] [place] [address] [facility] Start: 06-20-2023 End: 06-19-2024 Holter monitor study 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 PVC (premature ventricular contraction) Expected: 06/20/2023 (Approximate), Expires: 06/19/2024 [facility] Service Area Work Phone: Comment on above: Expected: 06/20/2023 (Approximate), Expi res: 06/19/2024 Start: 06-10-2023 End: 06-10-2023 Patient encounter procedure 06/10/2023 10:30 AM EDT Office Visit [facility] [address] [facility] [address] [place] [phone] Frantz Conley MD [address] [facility] [address] [place] [address] [facility] Start: 05-08-2023 End: 05-08-2024 [facility] Work Phone: Comment on above: Expected: 05/08/2023, Expires: Start: 05-08-2023 End: 05-08-2023 Patient encounter procedure 05/08/2023 10:30 AM EST Office Visit [facility] [address] [facility] [address] [place] [address] Frantz Conley MD [address] [facility] [address] [place] [address] Arrived [facility] Comment on above: Arrived Start: 11-23-2022 COVID-19 Vaccine () COVID-19 Vaccine () [facility] Start: 11-08-2022 Echocardiography Echocardiogram [facility] Start: 05-01-2022 Lipid panel Lipids [facility] Start: 09-19-2021 [facility] Work Phone: Start: 08-24-2021 End: 08-17-2022 CT HEAD WO CONTRAST CT HEAD WO CONTRAST Imaging Routine Subarachnoid hemorrhage following injury, no loss of consciousness, initial encounter (HCC) Expected: 08/24/2021, Expires: 08/17/2022 [facility] Work Phone: Comment on above: Expected: 08/24/2021, Expires: 3 Start: 2021 RSV High Risk: (Elderly (60+) or Population) (1 - 1-dose 75+ series) RSV High Risk: (Elderly (60+) or Population) (1 - 1-dose 75+ series) [facility] Start: 09-30-2019 Pneumococcal 65+ years Vaccine (2 - PCV) Pneumococcal 65+ years Vaccine (2 - PCV) [facility] Start: 09-30-2019 Pneumococcal vaccination Pneumococcal Vaccine (2 of 2 - PCV) [facility] Start: 09-30-2019 Pneumococcal Vaccine: 65+ Years (2 - PCV) Pneumococcal Vaccine: 65+ Years (2 - PCV) [facility] Start: 09-30-2019 Pneumococcal Vaccine: 65+ Years (2 of 2 - PCV) Pneumococcal Vaccine: 65+ Years (2 of 2 - PCV) [facility] Start: 2006 Hepatitis B Vaccines (1 of 3 - Risk 3-dose series) Hepatitis B Vaccines (1 of 3 - Risk 3-dose series) [facility] Start: 2006 RSV patients and/or patients aged 60+ years (1 - 1-dose 60+ series) RSV patients and/or patients aged 60+ years (1 - 1-dose 60+ series) [facility] Start: 07-31-1991 Screening for malignant neoplasm of colon [facility] Start: 1968 DTaP/Tdap/Td Vaccines (1 - Tdap) DTaP/Tdap/Td Vaccines (1 - Tdap) [facility] Start: 1965 DTaP/Tdap/Td vaccine (1 - Tdap) DTaP/Tdap/Td vaccine (1 - Tdap) [facility] Start: 1965 Hepatitis A Vaccines (1 of 2 - Risk 2-dose series) Hepatitis A Vaccines (1 of 2 - Risk 2-dose series) [facility] Start: 1964 Diabetes mellitus screening Diabetes Screening [facility] Start: 1964 Hepatitis C screening [facility] [employer] Start: 1958 Depression Screen Depression Screen [facility] Start: 1946 Creatinine measurement Creatinine Level [facility] Start: 1946 Medicare Annual Wellness Visit Medicare Annual Wellness Visit (AWV) [facility] Start: 1946 Potassium measurement Potassium Level [facility] Start: 1946 Thyroid stimulating hormone measurement TSH Level [facility] O[place] therapy [place] [place] Initiate Oxygen Therapy Protocol Respiratory Care Routine As Needed until discontinued starting 08/16/2021 [employer] Work Phone: Comment on above: As Needed until discontinued starting Patient Education Hemorrhoids Co ross polyps Esophageal varices Diverticulosis Know your [facility] Work Phone: Prostate specific Ag [Mass/volume] in Serum or Plasma PSA Lab Routine Prostate cancer screening Ordered: 03/12/2024 [employer] Work Phone: Comment on above: Ordered: 03/12/2024 End: 08-16-2021 Speech and language therapy regime 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 One Time for 1 Occurrences starting 08/16/2021 until 08/16/2021 [employer] Work Phone: Comment on above: One Time for 1 Occurrences starting 07/24 until 08/16/2021 URINE CULTURE - [facility] URINE CULTU RE - [facility] Lab Routine 12/25/2024 2:15 AM EDT [employer] US Abdomen limited [facility] US [facility] Immunizations Immunization Date Immunization Notes Care Provider Fa cilizohra 03-12-2024 Influenza, High-dose Seasonal, Quadrivalent, Preservative Free Frantz Conley MD Work Phone: [facility] 03-12-2024 influenza virus vacc ine, unspecified formulation Generic Provider [facility] 12-15-2023 influenza, high dose seasonal, preservative-free Generic Provider [facility] 01-04-2023 Influenza, Seasonal, Quadrivalent, Adjuvanted Frantz Conley MD Work Phone: [facility] 01-04-2023 influenza virus vacc ine, unspecified formulation Generic Provider [facility] 03-21-2022 Influenza, High-dose Seasonal, Quadrivalent, Preservative Free Frantz Conley MD Work Phone: [facility] Work Phone: 03-01-2021 COVID-19 Ad26.COV2.S (Caleb) II Frantz Conley Work Phone: [facility] 01-06-2021 influenza, high dose seasonal, preservative-free Frantz Conley MD Work Phone: [facility] 01-06-2021 Influenza, High-dose Seasonal, Quadrivalent, Preservative Free Frantz Conley MD Work Phone: [facility] 05-26-2020 COVID-19 mRNA-1273 (Moderna) II Frantz Conley Work Phone: [facility] 04-28-2020 COVID-19 mRNA-1273 (Moderna) II Frantz Conley Work Phone: [facility] 01-06-2020 Influenza, High-dose Seasonal, Quadrivalent, Preservative Free Frantz Conley MD Work Phone: [facility] 08-18-2019 zoster vaccine recombinant Frantz Conley MD Work Phone: [facility] 04-10-2019 zoster vaccine recombinant Frantz Conley MD Work Phone: [facility] 02-06-2019 influenza, high dose seasonal, preservative-free Frantz Conley MD Work Phone: [facility] 09-29-2018 pneumococcal polysaccharide vaccine, 23 valent Frantz Conley MD Work Phone: [facility] 01-14-2018 Influenza, High-dose Seasonal, Quadrivalent, Preservative Free Frantz Conley MD Work Phone: [facility] 12-03-2016 Influenza, High-dose Seasonal, Quadrivalent, Preservative Free Frantz Conley MD Work Phone: [facility] 03-28-2015 influenza, seasonal, injectable, preservative free Frantz Conley MD Work Phone: [facility] 01-10-2015 seasonal influenza, intradermal, preservative free Frantz Conley MD Work Phone: [facility] Healthcare Payers Date Payer Category Payer [employer] ( and others) [id number] 2024 Self-pay [id number] 2023 For Life (TFL) F [employer] LIFE [id number] 2022 [employer] ( and others) [id number] 2022 () [id number] 2015 [employer] ( and others) [id number] 2011 Medicare [id number] 1959 [employer] ( and others) [id number] 1959 Medicare [id number] 1946 Unknown [id number] 2.16.840.1.594840.3.579.2 .727 1946 Unknown [id number] 2.16.840.1.349989.3.579.2 .727 1946 Unknown [id number] 2.16.840.1.181168.3.579.2 .647 1946 Unknown [id number] 2.16.840.1.005746.3.579.2 .647 1946 Unknown [id number] 2.16.840.1.242704.3.579.2 .175 1946 Unknown [id number] 2.16.840.1.901783.3.579.2 .593 1946 Unknown [id number] 2.16.840.1.049243.3.579.2 .593 1946 Unknown [id number] 2.16.840.1.416843.3.579.2 .593 1946 Unknown [id number] 2.16.840.1.119642.3.579.2 .593 1946 Unknown [id number] 2.16.840.1.196454.3.579.2 .593 1946 Unknown [id number] 2.16.840.1.893590.3.579.2 .1259 1946 Unknown [id number] 2.16.840.1.846925.3.579.2 .1259 1946 Unknown [id number] 2.16.840.1.389710.3.579.2 .1259 1946 Unknown [id number] 2.16.840.1.040298.3.579.2 .1244 1946 Unknown [id number] 2.16.840.1.457273.3.579.2 .1244 Unknown [id number] 2.16.840.1.725148.3.579.2 .531 Unknown [id number] 2.16.840.1.163048.3.579.2 .531 Unknown [id number] 2.16.840.1.387761.3.579.2 .531 Unknown [id number] 2.16.840.1.651799.3.579.2 .531 Social History Date Type Detail Facility Start: 08-16-2021 Tobacco smoking status NHIS Tobacco smoking consumption unknown [employer] Start: 08-16-2021 End: 09-08-2024 Alcohol intake Lifetime non-drinker (finding) [employer] Phone: Start: 08-16-2021 History SDOH Alcohol Frequency 1 [employer] Phone: Start: 1945 Sex Assigned At Not on file [employer] Phone: Start: 08-06-2021 End: 01-01-2024 Exposure to SARS-CoV-2 (event) Not sure [employer] Phone: Start: 04-15-2023 End: 10-20-2024 Sex Assigned At [facility] Start: 05-10-2021 End: 10-23-2023 Tobacco smoking status NHIS Never smoked tobacco (finding) [facility] Start: 1945 Sex Assigned At Male [facility] Start: 08-16-2022 End: 01-01-2024 Tobacco use and exposure Smokeless tobacco non-user [facility] Start: 04-22-2023 End: 10-20-2024 Alcohol intake Ex-drinker (finding) [facility] Start: 04-15-2023 End: 10-20-2024 History of Social function [facility] Within the last year , have you been afraid of your partner or ex-partner? No [facility] How often do you get together with friends or relatives? Patient refused [facility] Do you belong to any clubs or organizations such as orthodox groups, unions, fraMoped or athletic groups, or school groups? Yes [facility] Are you now , , , , never or living with a partner? [facility] How often to you hav e a drink containing alcohol? Never [facility] (I/We) worried ariana er (my/our) food would run out before (I/we) got money to buy more. Never true [facility] Start: 08-20-2022 Alcohol Comment caffeine intake: 1-2 cups per day. [facility] Start: 06-20-2023 End: 01-01-2024 Tobacco smoking status NHIS Ex-smoker [facility] Work Phone: End: 03-25-2003 History of tobacco use Current smoker [facility] Work Phone: End: 03-25-2003 History of tobacco use Cigarette Smoker [facility] Work Phone: Start: 06-29-2023 Gender identity Identifies as male gender (finding) [facility] Work Phone: Start: 06-29-2023 Sexual orientation Heterosexual (finding) [facility] Work Phone: Start: 05-01-2024 Sex Patient sex unknown (finding) [facility] Start: 05-22-2024 Sex Male (finding) [facility] Goals Date Patient Goal Desired Activity /State Functional Status Date Assessment Result Facility 10-20-2024 Patient Health Quest ionnaire 2 item (PHQ-2) [Reported] [facility] 10-05-2024 Patient Health Quest ionnaire 2 item (PHQ-2) [Reported] [facility] Clinical Notes 05-23-2021 to 11-11-2024 Note Date & Type Note Facility 11-11-2024 Evaluation note Diagnosis Onset Date Resolution Cirrhosis, nonalcoholic acute A ugust 2024 1:26pm Esophageal varices acute November 11, 2024 1:26pm GAVE (gastric antral vascular ectasia) acute November 11 1:26pm Iron deficiency anemia acute Au 2024 1:26pm Metabolic dysfunction-associated steatohepatitis (MASH) acute November 112024 1:26pm Metabolic dysfunction-associated steatotic liver disease (MASLD) acute November 11 1:26pm Pancytopenia, acquired chronic [facility] 2024 1:26pm [facility] Work Phone: [phone]) 139-625607-29-2025 History of Present illness Narrative* HERMES Campa [...] Do you have a medical power of environmental attorney?: Yes Current Outpatient Medications on File [...] by mouth 1 (one) time each day. [place]-3 Fatty Acids (Fish Oil) 1000 MG capsule [...] HTN The patient is seeing a medical professionals for this condition, treatment is deferred to that specialist. Correspondence from that specialist and any available testing were reviewed during today's visit. 6. 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 Correspondence from that specialist and any available testing were reviewed during today's visit. 7. Coronary artery disease involving [place] coronary artery of [place] heart without angina pectoris The patient is seeing a medical professionals for this condition, treatment is deferred to that specialist. Correspondence from that specialist and any available testing were reviewed during today's visit. 8. Dilatation of aorta The patient is seeing a medical professionals for this condition, treatment is deferred to that specialist. Correspondence from that specialist and any available testing were reviewed during today's visit. 9. History of coronary artery stent placement The patient is seeing a medical professionals for this condition, treatment is deferred to that specialist. Correspondence from that specialist and any available testing were reviewed during today's visit. 10. PVCs (premature ventricular contractions) The patient is seeing a medical professionals for this condition, treatment is deferred to that specialist. Correspondence from that specialist and any available testing were reviewed during today's visit. 11. Sinus arrhythmia The patient is seeing a medical professionals for this condition, treatment is deferred to that specialist. Correspondence from that specialist and any available testing were reviewed during today's visit. 12. Sinus bradycardia The patient is seeing a medical professionals for this condition, treatment is deferred to that specialist. Correspondence from that specialist and any available testing were reviewed during today's visit. 13. Abnormal LFTs The patient is seeing a medical professionals for this condition, treatment is deferred to that specialist. Correspondence from that specialist and any available testing were reviewed during today's visit. 14. Diverticulosis of colon The patient is seeing a medical professionals for this condition, treatment is deferred to that specialist. Correspondence from that specialist and any available testing were reviewed during today's visit. 15. Gastroesophageal reflux disease without esophagitis The patient is seeing a medical professionals for this condition, treatment is deferred to that specialist. Correspondence from that specialist and any available testing were reviewed during today's visit. 16. 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 Correspondence from that specialist and any available testing were reviewed during today's visit. 23. Pancytopenia, acquired (CMS-HCC) The patient is seeing a medical professionals for this condition, treatment is deferred to [...] (HCC) The patient is seeing a medical professionals for this condition, treatment is deferred to that specialist. Correspondence from that specialist and any available testing were reviewed during today's visit. 29. Other secondary pulmonary hypertension (HCC) The patient is seeing a medical professionals for this condition, treatment is deferred to that specialist. Correspondence from that specialist and any available testing were reviewed during today's visit. 30. Grade II diastolic dysfunction The patient is seeing a medical professionals for this condition, treatment is deferred to that specialist. Correspondence from that specialist and any available testing were reviewed during today's visit. Follow up for Appointment As Scheduled. Rosanna MURILLO PA-C documented in this encounterSoutheast Missouri Community Treatment [id number] History of Present illness Narrative* Frantz Conley [...] by mouth 1 (one) time each day. 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 - This office visit was spent in consultation regarding the patient's current medical problems, differential diagnoses, testing/imaging results, and treatment options. Greater than 25 minutes was spent in uriu-rf-lhqk consultation and coordination of care. Follow up in about 2 months (around 12/06/2024) for Recheck. documented in this encounterSoutheast Missouri Community Treatment [id number] History of Present illness Narrative* Crescencio Marin, [...] with PCI of the ostial/proximal circumflex at [facility] he says around 4+ years ago and [...] tablet 1 tablet, Daily fish oil concentrate (Davenport-3) 120-180 mg capsule 1,000 mg, Daily levothyroxine [...] exam, discussion and plan. documented in this encounterWilson Health Work Phone: 1(305) 240-898006-17-2025 Instructions* Patient Instructions* Kina Mcduffie RN - [...] instructions on dietary changes. documented in this encounterWilson Health Work Phone: 1(300) 727-349002-27-[address] [facility] [place] [address] [place] [address] Ultrasound Report Signed Patient: Pankaj Payne MR#: [id number] : 1945 Acct:[id number] Age/Sex: 78 / M ADM Date: 5 Loc: Room: Type: [facility] Attending Dr: Mick Branch MD [...] LIVER WITHOUT MASS.. Impression dictated by: Kartik lCaros Jr., D.OKita05/21/2024 10:23 AM Dictation Location: [place] [address] Tech: Lizzy Llanes Transcribed By: USMAN 05/21/24 1023 Dictated By: Kartik Claros Jr, DO 05/21/24 1022 Signed By: 05/21/24 1023 [facility]02-06-2025 Evaluation note* Diagnosis Onset Date Resolution Status [...] Pancytopenia, acquired chronic Fe bruary 2024 12:56pm [facility] Work Phone: 1(342) 223-480512-19-2024 History of Present illness Narrative* Frantz Conley [...] by mouth 1 (one) time each day. Davenport-3 Fatty Acids (Fish Oil) 1000 MG capsule [...] need - Influenza, high-dose seasonal, quadrivalent, PF (PCC655) (Fluzone High Dose Quad North 0.7mL dose) Coronary artery disease involving yerington coronary artery of yerington heart without angina pectoris (CMS/HCC) - The patient is experiencing no symptoms from this condition currently, it is considered medicallycontrolled and no change in current therapies are planned. Mixed hyperlipidemia (CMS/HCC) - Lipid panel; Future Acquired hypothyroidism (CMS/HCC) - TSH W/REFLEX TO FT4; Future Prostate cancer screening - PSA Follow up in about 6 months (around 09/10/2024) for Wellness. documented in this encounterSoutheast Missouri Community Treatment [id number] History of Present illness Narrative* Crescencio Marin, [...] with PCI of the ostial/proximal circumflex at [facility] he says around 3 years ago and [...] daily., Disp: , Rfl: fish oil concentrate (Davenport-3) 120-180 mg capsule, Take 1 capsule (1,000 [...] exam, discussion and plan. documented in this [facility] Work Phone: 1([phone]) 435-278010-09-2024 Instructions* Patient Instructions* Shawna Flores RN - [...] Provided instructions on exercise. documented in this encounterWilson Health Work Phone: 1(988) 640-781607-31-2024 [facility] History of Present illness Narrative* Crescencio Marin, [...] with PCI of the ostial/proximal circumflex at [facility] he says around 3 years ago and [...] bedtime., Disp: , Rfl: fish oil concentrate (Davenport-3) 120-180 mg capsule, Take 1 capsule (1,000 [...] exam, discussion and plan. documented in this encounterWilson Health Work Phone: 1([phone]) 827-981103-28-2024 Instructions* Patient Instructions* Bernadette Santillan LPN - [...] Provided instructions on exercise. documented in this encounterWilson Health Work Phone: 1(315) 397-132202-14-2024 History of Present illness Narrative* Frantz Conley MD - 05/08/2023 10:30 AM EST Subjective Patient ID: Pankaj Payne is a 77 y.o. male who presents for Follow-up (H stay: admitted 04/30/23 dx: anemia discharged home 05/01/23 follow up with hematology was 05/07/23) and Anemia. Flowsheet Row Telephone from 05/03/2023 in [facility] with Frantz Conley MD Discharge Information ED or Hospital Discharge? Hospital Patient has been contacted within two business days of discharge Yes Discharge Date 05/01/23 Discharge Hospital [facility] Discharged To: Home Setting Engagement Call [...] by mouth 1 (one) time each day. Davenport-3 Fatty Acids (Fish Oil) 1000 MG capsule [...] was discussed with Dr Sevilla, Hematology at [facility], he is following the patient and did see himin the hospital. Iron deficiency anemia, unspecified iron deficiency anemia type - Ambulatory referral to Gastroenterology; Future Other cirrhosis of liver (CMS/HCC) - US LIVER; Future Fatty liver disease, nonalcoholic - US LIVER; Future Hyperchylomicronemia (CMS/HCC) Follow up in about 4 weeks (around 06/05/2023) for Test/Lab Review. documented in this encounterSoutheast Missouri Community Treatment [id number] Evaluation note* Encounter Date Diagnosis Assessment Notes Treatment Notes Treatment Clinical Notes Aug, Cirrhosis (ICD-10 - K74.60) Dr. Conley (PCP) will order lab work Repeat fibroscan in 2024 Rto 1 yr Aug, NAFLD (nonalcoholic fatty liver disease) (ICD-10 - K76.0) Aug, PLASCENCIA (nonalcoholic steatohepatitis) (ICD-10 - K75.81) [facility] Other 05-17-2023 Consult note Author Zoila Castorena [facility] August 08, 2022 3:09pm Note Date/Time August 08, 2022 2:08p m [facility] [place] [address] Hem/Onc Consult Note - OP Signed Patient: Pankaj Payne MR#: [id number] : 1945 Acct:[id number] Age/Sex: 77 / M Type: REG RCR [...] smoking cigars while he was in the [employer] but was not a regular cigarette smoker. [...] moderate complexity initial consultation for mild pancytopenia. PMF - History Attestation statement: The following information [...] PO QAM 04/26/21 [History Confirmed 08/08/22] omega 5-klw-flx-fish oil 1,000 mg (120 mg-180 mg) capsule [...] to contact me. Sincerely, Zoila Castorena MD, [facility] Medical Oncology (2) Liver cirrhosis secondary to [...] for coordination of care (as documented) and cnhm-cy-vdkv counseling of patient and/or family. Dictated By: Zoila Castorena MD DD/ 1407 Signed By: <Electronically signed by MD Zoila Castorena> 08/08/22 1504 [facility] Work Phone: 1(613) 899-273806-22-2022 Evaluation note* Encounter Date Diagnosis Assessment Notes Treatment Notes Treatment Clinical Notes Aug, Fatty liver (ICD-10 - K76.0) ENCOURAGED WATCHING DIET, EXERCISE AND WEIGHT LOSS. WILL NEED TO MONITOR IMAGING EVERY 6 MONTHS. PROCEED WITH EGD Aug, Other cirrhosis of liver (ICD-10 - K74.69) Aug, NAFLD (nonalcoholic fatty liver disease) (ICD-10 - K76.0) Aug, PLASCENCIA (nonalcoholic steatohepatitis) (ICD-10 - K75.81) [facility] Other 05-26-2022 Hospital Discharge instructions* Instructions* Pato [...] called to the trauma nurse line at [phone] and please leave a message. Trauma is [...] Injury Discharge Instructions Thank you for choosing [facility] for your recovery needs. The following instructions will help to ensure your comfort and that you are wellprepared for your recovery. Follow-up Visit: The office is located at: [facility] [place] [address], [address], [place] [address] [x] Please have a CT scan of your head done prior to this appointment. Please also call your primary care physician to schedule an appointment for further evaluation and care. You can obtain CT head closer to home and have them electronically send the imaging to [facility] so we can see the scan You can follow up with Neurosurgery closer to home of you can do virtual visit with Porsche the outpatient MOUNTED POLICE OFFICER Ok to restart your ASPIRIN today 08/17 [...] medications. YOU SHOULD CALL THE OFFICE AT [phone] IF YOU HAVE ANY OF THE FOLLOWING: [...] the emergency department. 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 Inpatient Daily Activity Raw Score: 24 (08/17/21 130) AM-PAC Inpatient ADL T-Scale Score : 57.54 (08/17/21 130) ADL Inpatient [facility] 0-100% Score: 0 (08/17/21 1307) ADL Inpatient [facility] G-Code Modifier : CH (08/17/211306) Goals Therapy [...] up CT scan, and medications. * Rishi Patino Aniyahchris, DO - 08/17/2021 5:44 AM EDT Images from the original note were not included. Trauma Tertiary Survey Admit Date: 08/16/2021 Hospital day 1 Other vehicle: Carlos bernal Past Medical History: Diagnosis Date Hyperlipidemia Hypertension [...] HISTORY: ORDERING SYSTEM PROVIDED HISTORY[facility] PROVIDED HISTORY: SAH and SDH [...] SYSTEM PROVIDED HISTORY: Impact with object riding jailer TECHNOLOGIST PROVIDED HISTORY: Impact with object riding jailer Decision Support Exception - unselect if not [...] most recent progress note documented in this [facility]CAR[facility]LET [facility] [employer] Phone: 1([phone]) 950-799804-19-2022 Evaluation note* Encounter Date Diagnosis Assessment Notes Treatment Notes Treatment Clinical Notes Jun, Cirrhosis (ICD-10 - K74.60) [facility] Other 03-01-2022 History general Narrative - Reported* Type Description Date Surgical History cholecystectomy 05/2021 Surgical History heart stent Surgical History cataracts, bilaterally [facility] Other 03-01-2022 History general Narrative - Reported* Type Description Date Surgical History cholecystectomy 05/2021 Surgical History heart stent Surgical History cataracts, bilaterally Hospitalization History see surgical hx [facility] Other Evaluation note* Diagnosis SAH (subarachnoid hemorrhage) (HCC)- Primary Subarachnoid hemorrhage Subarachnoid hemorrhage following injury, no loss of consciousness, initial encounter (HCC) Facial laceration, initial encounter Subdural hematoma (HCC) Subdural hemorrhage documented in this encounter 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 in this encounter [facility]* Diagnosis ASHD (arteriosclerotic heart disease) Coronary atherosclerosis of unspecified type of vessel, yerington or graft History of coronary artery stent placement Ascending aorta dilation (CMS/HCC) Thoracic aneurysm without mention of rupture Iron deficiency anemia, unspecified iron deficiency anemia type PVC (premature ventricular contraction) Other premature beats Former cigarette smoker Personal history of tobacco use, presenting hazards to health documented in this encounter [facility] Work Phone: Evaluation note* Diagnosis Onset Date Resolution Status Cirrhosis, nonalcoholic acut e Non-alcoholic fatty liver disease acute Nonalcoholic steatohepatitis (PLASCENCIA) acute [facility] Work Phone: Evaluation note* Diagnosis ASHD (arteriosclerotic heart disease) Coronary atherosclerosis of unspecified type of vessel, y[place] or graft PVC (premature ventricular contraction) Other premature beats History of coronary artery stent placement Former cigarette smoker Personal history of tobacco use, presenting hazards to health BMI 29.0-29.9,adult Bradycardia Other specified cardiac dysrhythmias documented in this encounter [facility] Work Phone: Evaluation note* Diagnosis Benign essential HTN (CMS/HCC)- Primary Flu vaccine need Coronary artery disease involving yerington coronary artery of yerington heart without angina pectoris (CMS/HCC) Mixed hyperlipidemia (CMS/HCC) Mixed hyperlipidemia Acquired hypothyroidism (CMS/HCC) Unspecified hypothyroidism Prostate cancer screening Special screening for malignant neoplasm of prostate documented [facility] encounter [facility]* Diagnosis Mixed hyperlipidemia (CMS/HCC)- Primary Mixed hyperlipidemia documented in this encounter [facility]* Diagnosis ASHD (arteriosclerotic heart disease) Coronary atherosclerosis of unspecified type of vessel, [place] or graft History of coronary artery stent placement PVC (premature ventricular contraction) Other premature beats BMI 30.0-30.9,adult Former cigarette smoker Personal history of tobacco use, presenting hazards to health Hyperlipidemia, unspecified hyperlipidemia type documented in this encounter [facility] Work Phone: Evaluation note* Diagnosis Sinus bradycardia- Primary Other specified cardiac dysrhythmias PVCs (premature ventricular contractions) Other premature beats Coronary artery disease involving yerington coronary artery of yerington heart without angina pectoris 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) documented in this encounter [facility]* Diagnosis Medicare annual wellness visit, subsequent- Primary ACP (advance care planning) Other specified counseling Chronic insomnia Insomnia, unspecified Other chronic pain Benign essential HTN Benign hypertensive heart and CKD, 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), w CHF (HCC) Coronary artery disease involving yerington coronary artery of yerington heart without angina pectoris Dilatation of aorta [...] ated steatohepatitis (MASH) acute November 112024 1:26pm [facility] Work Phone: History and physical note Author Mick Branch [facility] October 23, 2023 10:14am Note Date/Time October 23, 2023 10:1 4am [facility] [address] [place] [address] Gastroenterology H&P Signed Patient: Pankaj Payne MR#: [id number] : 1945 Acct:[id number] Age/Sex: 78 / M Adm Date: 4 Loc: Room: Type: [facility] Attending Dr: Mick Branch MD Copies [...] signed by Mick Branch MD> 10/23/23 1014 [facility] Work Phone: Hospital Discharge instructions Additional [...] cancer screening. -Continue to follow with your brokerage clerk Dr. Sevilla. -Notify the doctor if you have any problems. -Follow up with PCP. - Office number [phone].[facility] Work Phone: reason for referral (narrative)* Consultation (Routine) - Authorized Specialty Diagnoses / Procedures Referred By Contac t Referred To Contact Gastroenterology Diagnoses Iron deficiency anemia, unspecified iron deficiency anemia type Procedures VA OFFICE/OUTPATIENT NEW HIGH MDM 60 MINUTES Frantz Conley MD 112 [facility] [address] [place] [address] Mick Branch MD [address] [facility] [address] [place] [address] Referral ID Status Reason Start Date Expiration Date Visits Requested Visits Authorized [id number] Authorized Specialty Services Required 05/08/2023 11/04/2023 1 1 [facility] (narrative)No reason for referral information availableGen[facility]tr Work Phone: reason for visit NarrativePT HERE AT REQUEST OF DR DAY FOR EVALUATION AND TREATMENT OF CIRRHOSIS, REFERRAL NOTE RECEIVEDNometropolitan [facility] Dataium Other Summary Purpose Family History No Family [...] 9:52am Hospital Course Note MR#: [id number] [facility] Pt. Name: Pankaj Payne Admitted: 02/28/2018 [...] Referred By Olayinka t Referred To Contact Radiology Diagnoses Subarachnoid hemorrhage following injury, no loss of consciousness, initial encounter ([facility]) Procedures CT HEAD WO CONTRAST Pato Grissom, CALENDER INSPECTOR - M[employer] OFFICER [address] [place] [address] Referral ID Status Reason Start Date Expiration Date Visits Re quested Visits Authorized [id number] Open 08/24/2021 08/24/2022 1 1 Specialty Diagnoses / Procedures Referred By Contac t Referred To Contact Cardiology Diagnoses PVC (premature ventricular contraction) Procedures Holter Or Event Dieing Out Machine Operator Crescencio Marin, DO [address] [place] [address] Referral ID Status Reason Start Date Expiration Date V isits Requested Visits Authorized [id number] Pending Review 06/20/2023 06/19/2024 1 1 Specialty Diagnoses / Procedures Referred By Contac t Referred To Contact Diagnoses PVC (premature ventricular contraction) Procedures ECG 12 Lead Crescencio Marin, DO [address] [place], [place] Referral ID Status Reason Start Date Expiration Date V isits Requested Visits Authorized [id number] Authorized 06/20/2023 06/19/2024 1 1 Specialty Diagnoses / Procedures Referred By Contac t Referred To Contact Cardiology Diagnoses ASHD (arteriosclerotic heart disease) Procedures Follow Up In Cardiology Crescencio Marin, DO [address] [place] [address] Crescencio Marin, DO [address] [place] [address] Referral ID Status Reason Start Date Expiration Date V isits Requested Visits Authorized [id number] Authorized 06/20/2023 06/19/2024 1 1 Specialty Diagnoses / Procedures Referred By Contac t Referred To Contact Diagnoses PVC (premature ventricular contraction) Bradycardia Procedures ECG 12 Lead Crescencio Marin, DO [address] [place] [address] Referral ID Status Reason Start Date Expiration Date V isits Requested Visits Authorized [id number] Authorized 01/01/2024 12/31/2024 1 1 Referral ID Status Reason Start Date Expiration Date V isits Requested Visits Authorized [id number] Authorized 01/01/2024 12/31/2024 1 1 Chief Complaint [...] 26pm GAVE (gastric antral vascular ectasia) A ug2024 1:26pm Iron deficiency anemia November 11, 2024 [...] content) DATE CREATED AUTHOR 03/05/2018 [facility] DATE CREATED AUTHOR AUTHOR'S ORGANIZ ATION 11/12/2018 [facility] DATE CREATED AUTHOR AUTHOR'S ORGANIZ ATION 06/08/2021 [facility] DATE CREATED AUTHOR AUTHOR'S ORGANIZ ATION 08/20/2021 [facility] DATE CREATED AUTHOR AUTHOR'S ORGANIZ ATION 11/15/2021 [facility] DATE CREATED AUTHOR AUTHOR'S ORGANIZ ATION 07/11/2024 [facility] DATE CREATED AUTHOR AUTHOR'S ORGANIZ ATION 10/22/2024 [facility] DATE CREATED AUTHOR AUTHOR'S ORGANIZ ATION 12/29/2024 [facility] DATE CREATED AUTHOR AUTHOR'S ORGANIZ ATION 12/31/2024 [facility] Ambulatory Reason for Visit (unrecogniz ed section [...] DO [address] [place] [id number] Referral ID Status Reason Start Date Expiration Date V isits Requested Visits Authorized [id number] Authorized 06/20/2023 06/19/2024 1 1 Reason Comments Follow-up 6 month Specialty Diagnoses / Procedures Referred By Contac t Referred To Contact Cardiology Diagnoses ASHD (arteriosclerotic heart disease) Procedures Follow Up In Cardiology Tomas Crescencio Spangler, [address] [facility] 2, [address] [address] TomasCrescencio, DO [address] [facility] 2, [address] [address] Referral ID Status Reason Start Date Expiration Date V isits Requested Visits Authorized [id number] Authorized 06/20/2023 06/19/2024 1 1 Reason Comments Hypertension Reason Onset Date Comments Med Refill 04/22/2024 Reason Comments Follow-up 8 month visit for ca d. Specialty Diagnoses / Procedures Referred By Contac t Referred To Contact Cardiology Diagnoses ASHD (arteriosclerotic heart disease) Procedures Follow Up In Cardiology Crescencio Marin, [address] [address] Phone: tel: fax: Tomas Crescencio Spangler, DO [address] [facility] 2, [address] [address] Phone: tel: fax: Referral ID Status Reason Start Date Expiration Date V isits Requested Visits Authorized [id number] Authorized 01/01/2024 12/31/2024 1 1 Reason Comments [...] 2119 (Given - Provider: Josephine Romero RN) 0838 (Given - Provider: Sybil Avalos, MARISOL) tiZANidine [...] June 05, 2023 End: June 05, 2023 Crawler Crane Operator Relationship Specialty Start Date End Date Frantz Conley MD [address] [place] [address] PCP - General Internal Medicine 08/16/21 Team [...] Active Zoila Castorena MD Attending Provider Active Crawler Crane Operator Relationship Specialty Start Date End Date Frantz Conley MD [address] [place] [address] PCP - General Internal Medicine 08/08/22 Frantz Conley MD [address] [place] [address] PCP - ACO Reach 08/16/22 Crawler Crane Operator Relationship Specialty Start Date End Date Frantz Conley MD [address] [place] [address] PCP - General Internal Medicine 08/08/22 Frantz Conley MD [address] [place] [address] PCP - ACO Reach 08/16/22 Crawler Crane Operator Relationship Specialty Start Date End Date Frantz Conley MD [address] [place] [address] PCP - General Internal Medicine 06/20/23 Team [...] Provide r Active Start: October 23, 2023 Crawler Crane Operator Relationship Specialty Start Date End Date Frantz Conley MD [address] [place] [address] PCP - General Internal Medicine 08/08/22 Frantz Conley MD [address] [place] [address] PCP - ACO Reach 08/16/22 Crawler Crane Operator Relationship Specialty Start Date End Date Frantz Conley MD [address] [place] [address] PCP - General Internal Medicine 08/08/22 Frantz Conley MD [address] [place] [address] PCP - ACO Reach 08/16/22 Crawler Crane Operator Relationship Specialty Start Date End Date Frantz Conley MD [address] [facility] [address] [place] [address] PCP - General Internal Medicine 08/08/22 Frantz Conley MD [address] [facility] [address] [place] [address] PCP - ACO Reach 08/16/22 Crawler Crane Operator Relationship Specialty Start Date End Date Frantz Conley MD [address] [facility] [address] [place] [address] PCP - General Internal Medicine 08/08/22 Frantz Conley MD [address] [facility] [address] [place] [address] PCP - ACO Reach 08/16/22 Team Status: [...] May 21, 2024 End: May 21, 2024 Crawler Crane Operator Relationship Specialty Start Date End Date Frantz Conley MD [address] [place] [address] PCP - General Internal Medicine 06/20/23 Crawler Crane Operator Relationship Specialty Start Date End Date Frantz Conley MD [address] [place] [address] PCP - General Internal Medicine 08/08/22 Frantz Conley MD [address] [place] [address] PCP - ACO Reach 08/16/22 Crawler Crane Operator Relationship Specialty Start Date End Date Frantz Conley MD [address] [place] [address] PCP - General Internal Medicine 08/08/22 Frantz Conley MD [address] [place] [address] PCP - ACO Reach 08/16/22 Crawler Crane Operator Relationship Specialty Start Date End Date Frantz Conley MD [address] [place] [address] PCP - General Internal Medicine 08/08/22 Frantz Conley MD [address] [place] [address] PCP - ACO Reach 08/16/22 Team Status: [...] November 11, 2024 End: November 11, 2024 Crawler Crane Operator Relationship Specialty Start Date End Date Frantz Conley MD [address] [place] [address] PCP - General Internal Medicine 08/08/22 Frantz Conley MD [address] [place] [address] PCP - ACO Reach 08/16/22 Team Status: Active Member Role Status Dates Alex Marin DO Customer Advisor Specialist Active Team Status: Inactive Member Role Status [...] BE BASED ON THE PRIMARY CLINICAL RECORDS. [facility] [facility]. provides no warranty or guarantee of the accuracy or completeness of information in this document.
== END 2025-01-04 14:30 | disposition home or self-care (01) ==
LOC: CARD 14:31
PROVIDERS: PCP Internal Medicine; Visit Provider Hospitalist
DX: I95.9 Hypotension, unspecified (principal); I25.10 Atherosclerotic heart disease of native coronary artery without angina pectoris; I49.9 Cardiac arrhythmia, unspecified
CPT/HCPCS: 93270

== ENCOUNTER 2025-01-29 09:05 | Outpatient (OUT) | payer MEDICARE, OTHER, SELFPAY ==
--- OUTSIDE RECORDS SUMMARY | 2023-10-08 05:00 | XMS_ITS ---
Author Organization [facility] Address [address] [place] [address] Care Team Providers Care [email or web address] Android Developer Name Role Phone Jarvis CROFT, Frantz Primary Care Provider Unavailab Dior Bar Unavailable [phone] REASON FOR VISIT MD Encounters Encounter Location Date Provider Diagnosis [facility] [address] [place] [id number] 10/08/2023 Dior Sevilla Plan Of Treatment Next Appt Details Provider Name:DIOR SEVILLA , 02/09/2025 11:00:00 AM, [address] [place], [address], Progress Notes * Pankaj PAYNEDOB:[birth year] (79 yo M)Acc No.[id number]:10/08/2023 UNLOCKED PROGRESS NOTE Progress Notes Patient: Pankaj ROMERO :?Dior Sevilla M.D.:1945???Age:78 Y ???Sex:MaleDate:10/08/2023hone:[phone]:[phone] [id number]:Frantz Conley MD Subjective: * Chief Complaints: * 1 . MD. * Medical History: Objective: * Vitals: Assessment: Plan: * Treatment: * * Electronic signature of Dior Sevilla MD, [phone] on 01/29/2025 at 09:10 AM ESTSign off status: PendingVisit Status:?CONFPHONE (Voice) * Provider: Rishabh Sevilla M.D. Date: 0 10/08/2023 Generated for Printing/Faxing/eTransmitting on:?01/29/2025 09:10 AM EST
--- OUTSIDE RECORDS SUMMARY | 2023-12-10 06:00 | XMS_ITS ---
Author Organization The [facility] in [place] Address [address] [place] [address] Care Team Providers Care Farm Instructor Name Role Phone Jarvis CROFT, Frantz Primary Care Provider Unavailab Dior Bar Unavailable [phone] REASON FOR VISIT MD Encounters Encounter Location Date Provider Diagnosis [facility] [address] [place] [address] 12/10/2023 Dior Sevilla Plan Of Treatment Next Appt Details Provider Name:DIOR SEVILLA , 02/09/2025 11:00:00 AM, [address] [place], [address], Progress Notes * Pankaj PAYNEDOB:[birth year] (79 yo M)Acc No.[id number]:12/10/2023 UNLOCKED PROGRESS NOTE Progress Notes Patient: Pankaj ROMERO :?Dior Sevilla M.D.:1945???Age:78 Y ???Sex:MaleDate:12/10/2023hone:[phone]:[phone] [id number]:Frantz Conley MD Subjective: * Chief Complaints: * 1 . MD. * Medical History: Objective: * Vitals: Assessment: Plan: * Treatment: * * Electronic signature of Dior Sevilla MD, [phone] on 01/29/2025 at 09:09 AM ESTSign off status: PendingVisit Status:?CONFPHONE (Voice) * Provider: Rishabh Sevilla M.D. Date: 0 12/10/2023 Generated for Printing/Faxing/eTransmitting on:?01/29/2025 09:09 AM EST
--- OUTSIDE RECORDS SUMMARY | 2024-04-14 05:30 | XMS_ITS ---
Author Organization The [facility] [place] Address [address] [place] [address] Care Team Providers Care Bisque Brusher Name Role Phone Jarvis CROFT, Frantz Primary Care Provider Unavailab Dior Bar Unavailable [phone] REASON FOR VISIT MD Encounters Encounter Location Date Provider Diagnosis [facility] On[facility] [address] [place] [id number] 04/14/2024 Dior Sevilla Plan Of Treatment Next Appt Details Provider Name:DIOR SEVILLA , 02/09/2025 11:00:00 AM, [address] [place], [address], Progress Notes * ELMER PankajDOB:[birth year] (79 yo M)Acc No.[id number]:04/14/2024 UNLOCKED PROGRESS NOTE Progress Notes Patient: Pankaj ROMERO :?Dior Sevilla M.D.:1945???Age:78 Y ???Sex:MaleDate:04/14/2024Phone:[phone]:[address] [id number]:Frantz Conley MD Subjective: * Chief Complaints: * 1 . MD. * Medical History: Objective: * Vitals: Assessment: Plan: * Treatment: * * Electronic signature of Dior Sevilla MD, [id number] on 01/29/2025 at 09:11 AM ESTSign off status: PendingVisit Status:?CANC (Cancelled) * Provider: Rishabh Sevilla M.D. Date: 0 04/14/2024 Generated for Printing/Faxing/eTransmitting on:?01/29/2025 09:11 AM EST
--- OUTSIDE RECORDS SUMMARY | 2024-04-21 09:00 | XMS_ITS ---
Author Organization The [facility] in [place] Address [address] [place] [address] Care Team Providers Care Budget And Policy Analyst Name Role Phone Jarvis CROFT, Frantz Primary Care Provider Unavailab Dior Bar Unavailable [phone] REASON FOR VISIT MD Encounters Encounter Location Date Provider Diagnosis [facility] Oncology [address] [place] [address] 04/21/2024 Dior Sevilla Plan Of Treatment Next Appt Details Provider Name:DIOR SEVILLA , 02/09/2025 11:00:00 AM, [address] [place], [address], Progress Notes * ELMER PankajDOB:[birth year] (79 yo M)Acc No.[id number]:04/21/2024 UNLOCKED PROGRESS NOTE Progress Notes Patient: Pankaj ROMERO :?Dior Sevilla M.D.:1945???Age:78 Y ???Sex:MaleDate:04/21/2024Phone:[phone]:[phone] [id number]:Frantz Conley MD Subjective: * Chief Complaints: * 1 . MD. * Medical History: Objective: * Vitals: Assessment: Plan: * Treatment: * * Electronic signature of Dior Sevilla MD, [id number] on 01/29/2025 at 09:10 AM ESTSign off status: PendingVisit Status:?CONFPHONE (Voice) * Provider: Rishabh Sevilla M.D. Date: 0 04/21/2024 Generated for Printing/Faxing/eTransmitting on:?01/29/2025 09:10 AM EST
--- OUTSIDE RECORDS SUMMARY | 2024-09-29 09:30 | XMS_ITS ---
Author Organization The [facility] in [place] Address [address] [place] [address] Care Team Providers Care Consultant Electronics Name Role Phone Jarvis CROFT, Frantz Primary Care Provider Unavailab Dior Bar Unavailable [phone] REASON FOR VISIT MD Encounters Encounter Location Date Provider Diagnosis [facility] Oncology [address] [place] [address] 09/29/2024 Dior Sevilla Plan Of Treatment Next Appt Details Provider Name:DIOR SEVILLA , 02/09/2025 11:00:00 AM, [address] [place], [address], Progress Notes * Pankaj PAYNEDOB:[birth year] (79 yo M)Acc No.[id number]:09/29/2024 UNLOCKED PROGRESS NOTE Progress Notes Patient: Pankaj ROMERO :?Dior Sevilla M.D.:1945???Age:79 Y ???Sex:MaleDate:09/29/2024Phone:[phone]:[address] [id number]:Frantz Conley MD Subjective: * Chief Complaints: * 1 . MD. * Medical History: Objective: * Vitals: Assessment: Plan: * Treatment: * * Electronic signature of Dior Sevilla MD, [id number] on 01/29/2025 at 09:11 AM ESTSign off status: PendingVisit Status:?CONFPHONE (Voice) * Provider: Rishabh Sevilla M.D. Date: 0 09/29/2024 Generated for Printing/Faxing/eTransmitting on:?01/29/2025 09:11 AM EST
--- OUTSIDE RECORDS SUMMARY | 2024-09-29 10:00 | XMS_ITS ---
Author Organization The [facility] in [place] Address [address] [place] [address] Care Team Providers Care Dye Beck Reel Operator Name Role Phone Jarvis CROFT, Frantz Primary Care Provider Unavailab Dior Bar Unavailable [phone] REASON FOR VISIT MD Encounters Encounter Location Date Provider Diagnosis [facility] Oncology [address] [place] [address] 09/29/2024 Dior Sevilla Plan Of Treatment Next Appt Details Provider Name:DIOR SEVILLA , 02/09/2025 11:00:00 AM, [address] [place], [address], Progress Notes * Pankaj PAYNEDOB:[birth year] (79 yo M)Acc No.[id number]:09/29/2024 UNLOCKED PROGRESS NOTE Progress Notes Patient: Pankaj ROMERO :?Dior Sevilla M.D.:1945???Age:79 Y ???Sex:MaleDate:09/29/2024Phone:[phone]:[address] [id number]:Frantz Conley MD Subjective: * Chief Complaints: * 1 . MD. * Medical History: Objective: * Vitals: Assessment: Plan: * Treatment: * * Electronic signature of Dior Sevilla MD, [id number] on 01/29/2025 at 09:11 AM ESTSign off status: PendingVisit Status:?CANC (Cancelled) * Provider: Rishabh Sevilla M.D. Date: 0 09/29/2024 Generated for Printing/Faxing/eTransmitting on:?01/29/2025 09:11 AM EST
--- OUTSIDE RECORDS SUMMARY | 2024-12-08 10:00 | XMS_ITS ---
Author Organization [facility] in [place] Address [address] [place] [address] Care Team Providers Care Ironing Machine Operator Name Role Phone Jarvis CROFT, Frantz Primary Care Provider Unavailab Dior Bar Unavailable [phone] REASON FOR VISIT MD Encounters Encounter Location Date Provider Diagnosis [facility] [address] [place] [phone] 12/08/2024 Dior Sevilla Plan Of Treatment Next Appt Details Provider Name:DIOR SEVILLA , 02/09/2025 11:00:00 AM, [address] [place], [address], Progress Notes * Pankaj PAYNEDOB:[birth year] (79 yo M)Acc No.[id number]:12/08/2024 UNLOCKED PROGRESS NOTE Progress Notes Patient: Pankaj ROMERO :?Dior Sevilla M.D.:1945???Age:79 Y ???Sex:MaleDate:12/08/2024Phone:[phone]:[address] [id number]:Frantz Conley MD Subjective: * Chief Complaints: * 1 . MD. * Medical History: Objective: * Vitals: Assessment: Plan: * Treatment: * * Electronic signature of Dior Sevilla MD, [id number] on 01/29/2025 at 09:09 AM ESTSign off status: PendingVisit Status:?CANC (Cancelled) * Provider: Rishabh Sevilla M.D. Date: 0 12/08/2024 Generated for Printing/Faxing/eTransmitting on:?01/29/2025 09:09 AM EST
--- OUTSIDE RECORDS SUMMARY | 2024-12-15 06:15 | XMS_ITS ---
Author Organization [facility] in [place] Address [address] [place] [address] Care Team Providers Care Advertising Dispatch Clerks Supervisor Name Role Phone Jarvis CROFT, Frantz Primary Care Provider Unavailab Dior Bar Unavailable [phone] REASON FOR VISIT MD Encounters Encounter Location Date Provider Diagnosis [facility] [address] [place] [phone] 12/15/2024 Dior Sevilla Plan Of Treatment Next Appt Details Provider Name:DIOR SEVILLA , 02/09/2025 11:00:00 AM, [address] [place], [address], Progress Notes * Pankaj PAYNEDOB:[birth year] (79 yo M)Acc No.[id number]:12/15/2024 UNLOCKED PROGRESS NOTE Progress Notes Patient: Pankaj ROMERO :?Dior Sevilla M.D.:1945???Age:79 Y ???Sex:MaleDate:12/15/2024Phone:[phone]:[address] [id number]:Frantz Conley MD Subjective: * Chief Complaints: * 1 . MD. * Medical History: Objective: * Vitals: Assessment: Plan: * Treatment: * * Electronic signature of Dior Sevilla MD, [id number] on 01/29/2025 at 09:10 AM ESTSign off status: PendingVisit Status:?CANC (Cancelled) * Provider: Rishabh Sevilla M.D. Date: 0 12/15/2024 Generated for Printing/Faxing/eTransmitting on:?01/29/2025 09:10 AM EST
--- OUTSIDE RECORDS SUMMARY | 2024-12-15 09:30 | XMS_ITS ---
Author Organization The [facility] in [place] Address [address] [place] [address] Care Team Providers Care Health Care Analyst Name Role Phone Jarvis CROFT, Frantz Primary Care Provider Unavailab Dior Bar Unavailable [phone] REASON FOR VISIT MD Encounters Encounter Location Date Provider Diagnosis [facility] On[facility] [address] [place] [id number] 12/15/2024 Dior Sevilla Plan Of Treatment Next Appt Details Provider Name:DIOR SEVILLA , 02/09/2025 11:00:00 AM, [address] [place], [address], Progress Notes * Pankaj PAYNEDOB:[birth year] (79 yo M)Acc No.[id number]:12/15/2024 UNLOCKED PROGRESS NOTE Progress Notes Patient: Pankaj ROMERO :?Dior Sevilla M.D.:1945???Age:79 Y ???Sex:MaleDate:12/15/2024Phone:[phone]:[id number] TO-[phone]:Frantz Conley MD Subjective: * Chief Complaints: * 1 . MD. * Medical History: Objective: * Vitals: Assessment: Plan: * Treatment: * * Electronic signature of Dior Sevilla MD, [id number] on 01/29/2025 at 09:10 AM ESTSign off status: PendingVisit Status:?CANC (Cancelled) * Provider: Rishabh Sevilla M.D. Date: 0 12/15/2024 Generated for Printing/Faxing/eTransmitting on:?01/29/2025 09:10 AM EST
--- OUTSIDE RECORDS SUMMARY | 2025-01-14 12:30 | XMS_ITS | Encounter Summary ---
Author Organization [facility] Address [address] [place] [address] Phone Care Team Providers Care Medicine Worker Name Role Phone Frantz Conley MD Primary Care Provider [phone] Reason for Referral * Cardiovascular (Routine) - AuthorizedSpecialtyDiagnoses / ProceduresReferred By ContactReferred To Contact Diagnoses Sinus node dysfunction (Multi) Procedures ECG 12 Lead Buck Barlow APRN-CNP [address] [facility] [address], [address] [address] Phone: tel: fax: Referral IDStatusReasonStart DateExpiration DateVisits RequestedVisits [id number]/23/202510/23/202611 * Consultation (Routine) - AuthorizedSpecialtyDiagnoses / ProceduresReferred By ContactReferred To ContactCardiology Diagnoses Sinus node dysfunction (Multi) Buck Barlow APRN-CNP [address]03 [facility] [address], [address] [address] Phone: tel: fax: [facility] [place] [address] [place] [address] Referral IDStatusReasonStart DateExpiration DateVisits RequestedVisits [id number] Specialty Services Required Reason for Visit * ReasonCommentsFollow-upBellevue discharge 12/25. Patient states problems were from stress after * Cardiovascular (Routine) - AuthorizedSpecialtyDiagnoses / ProceduresReferred By ContactReferred To Contact Diagnoses Sinus node dysfunction (Multi) Procedures ECG 12 Lead Buck Barlow APRN-CNP [address]03 [facility] [address], [address] [address] Phone: tel: fax: Referral IDStatusReasonStart DateExpiration DateVisits RequestedVisits [id number]/23/202510/23/202611 Encounter Details DateTypeDepartmentCare Team (Latest Contact Info)Maaskptzhzt50/23/2025 1:30 PM EDTOffice Visit [facility] [address] [address] Buck Barlow APRN-CNP [address]03 [facility] [address], [address] [address] Sinus node dysfunction (Multi) (Primary Dx); ASHD (arteriosclerotic heart disease); BMI 30.0-30.9,adult Social History Tobacco UseTypesPacks/DayYears UsedDateSmoking Tobacco: FormerCigarettesQuit: 2003Smokeless Tobacco: NeverAlcohol UseStandard Drinks/WeekCommentsNever0 (1 standard drink = 0.6 oz pure alcohol)Sex and Gender InformationValueDate RecordedSex Assigned at WvjilNzho50/06/2024 10:10 AM EDTLegal LstQwur7406/10/2023 2:05 PM EDTGender TehtfekgFlhf68/06/2024 10:10 AM EDTSexual OrientationStraight 06/29/2023 10:10 AM EDTdocumented as of this encounter Last Filed Vital Signs Vital SignReadingTime TakenCommentsBlood Wtipgzte610/6410 1:26 PM EDT Afyik536301/14/2025 1:26 PM EDTTemperature--Respiratory Rate--Oxygen Saturation-- Inhaled Oxygen Concentration--Alqqbq45.1 kg (181 lb)01/14/2025 1:26 PM EDTHeight 165.1 cm (5' 5 )01/14/2025 1:26 PM EDTBody Mass Index30.121 1:26 PM EDT documented in this encounter Functional Status * BPAnswerDate of IytzqfrbhaBnrgei278/6401/14/2025 1:26 PM EDCATARINAorrowLachelle CMA * PulseAnswerDate of LaxydlsrdxKmvvyk2264/23/2025 1:26 PM EDTMorrow, BRANDEN Larose * Communicable Disease ScreeningQuestionAnswerDate of AssessmentAutrDo you have any of the following new or worsening symptoms?None of these01/14/2025 1:16 PM Elizabeth Olvera documented as of this encounter Patient Instructions * Patient Instructions* Maria Dolores Carbajal LPN - 01/14/2025 1:30 PM EDT Please bring all medicines, vitamins, and herbal supplements with you when you come to the office. Prescriptions will not be filled unless you are compliant with your follow up appointments or have a follow up appointment scheduled as per instruction of your physician. Refills should be requested at the time of your visit. EKG done in office today Discussed in depth today the necessity and procedure to insert pacemaker * Attachments The following attachments cannot be sent through Care Everywhere. * Pacemakers (Welsh) documented in this encounter Progress Notes * Buck Barlow APRN-ROMÁN - 01/14/2025 1:30 PM EDT Chief Complaint I am doing fine Reason for Visit Patient presents to the office today for outpatient follow-up for hospital follow-up. Last evaluated in clinic by Dr. Marin August 2024. Presents today ambulatory with steady gait. November 2024: Hospitalized at [facility] due to weakness. He reports that he had been at his 's throughout the day got up from the chair where he had been sleeping to walk up to the bathroom and his children simply found him holding onto the door frame to keep from collapsing . Remains somewhat of a difficult historian. He was hospitalized and seen in consultation by cardiology due to questionable atrial fibrillation. He was sinus bradycardia with PACs, 1.4-second pause and episodes of junctional rhythm. He was not placed on beta-yadira. He was then placed on a 30-day monitor. History of Present Illness Patient presents to the office today due to recent hospitalization. His Holter monitor history of 3events of pauses during awakening hours anywhere from 3.1 seconds upward to 3.5 seconds. When he saw Dr. Marin in the office in August low-dose carvedilol was on medication list. He was instructed todiscontinue that medicine when we saw the first holter results but he reports today he has not taking that medication for years . Over the last 5 months he has been providing care for his , she recently in November 2024. He denies any type of exertional chest pain, no dyspnea on exertion. He reports his prior coronary artery disease was identified on routine stress testing. He denies dizziness or lightheadedness, no near syncope simply reports being tired because of everything he has been going through. EKG in the office today shows progression bifascicular block, sinus bradycardia, PACs, junctional. I had a lengthy discussion monitor findings, sinus node dysfunction and need for pacemaker. Instructed he should not be driving - the patient was somewhat argumentative and eventually Dr. Marin camelexi from the hospital to discuss with patient. After discussion, patient agrees to proceed with pacemaker implant. Dr. Marin has personally contacted [facility] and arrangements will be made for pacemaker implant tomorrow afternoon. Patient has been instructed to seek emergent medical attention for any near- syncope, syncope. Review of Systems Cardiovascular: Negative for chest pain, dyspnea on exertion, irregular heartbeat, leg swelling, near-syncope, orthopnea, palpitations, paroxysmal nocturnal dyspnea and syncope. Visit Vitals BP 112/64 (BP Location: Right arm, Patient Position: Sitting) Pulse (!) 47 Ht 1.651 m (5' 5 ) Wt 82.1 kg (181 lb) BMI 30.12 kg/m?? Smoking Status Former BSA 1.94 m?? Physical Exam Vitals and nursing note reviewed. Constitutional: Appearance: Normal appearance. Cardiovascular: Rate and Rhythm: Regular rhythm. Bradycardia present. Heart sounds: Normal heart sounds. Pulmonary: Effort: Pulmonary effort is normal. Breath sounds: Normal breath sounds. Musculoskeletal: Cervical back: Full passive range of motion without pain. Right lower leg: No edema. Left lower leg: No edema. Skin: General: Skin is cool. Neurological: Mental Status: He is alert and oriented to person, place, and time. Psychiatric: Attention and Perception: Attention normal. Mood and Affect: Mood normal. Behavior: Behavior is cooperative. ALLERGIES: Patient has no known allergies. Current Outpatient Medications Medication Instructions aspirin 81 mg, Daily atorvastatin (Lipitor) 20 mg tablet 1 tablet, Daily clopidogrel (Plavix) 75 mg tablet 1 tablet, Daily fish oil concentrate ([place]-3) 120-180 mg capsule 1,000 mg, Daily levothyroxine (SYNTHROID, LEVOXYL) 88 mcg, Daily before breakfast multivitamin with minerals tablet 1 tablet, Daily omeprazole (PRILOSEC) 40 mg, Daily tiZANidine (ZANAFLEX) 4 mg, Nightly PRN Assessment: ASHD (arteriosclerotic heart disease) 2019 Cardiac Cath at [facility] FINAL IMPRESSION: 1. Stable coronary artery disease. [...] PDA intermediate stenosis. Medical therapy is recommended. Current daily activity > 4 METs without concerning symptoms Cardiac and Vasculature Oct 2021 TTE EF 65% Sinus node dysfunction (Multi) Dec 2024 hospitalization at [facility] due to weakness/ ? Near syncope. Tele: SR with PAC, junctional, pause 1.4 seconds 30 day MARIANN: NO AVN blocking agents 3 recorded episodes during awake hours ranging 3.1 -3.4 seconds ECG in office today: progression bifascicular block. Sinus bradycardia at 47bpm with PAC and junctional. BMI 30.0-30.9,adult Reviewed the merits of healthy lifestyle choices on overall cardiovascular health. Plan: Arrangements will be made for dual-chamber permanent pacemaker implant tomorrow at [facility]. Buck Barlow MSN, LIZETH, PMHNP-[facility] [place], [place] Please excuse any errors in grammar or translation related to this dictation. Voice recognition software was utilized to prepare this document. documented in this encounter Miscellaneous Notes * Assessment & Plan Note - LIZETH Huber - 01/14/2025 4:26 PM EDT Associated Problem(s): BMI 31.0-31.9,adult Reviewed the merits of healthy lifestyle choices on overall cardiovascular health. * Assessment & Plan Note - LIZETH Huber - 01/14/2025 4:26 PM EDT Associated Problem(s): Sinus node dysfunction (Multi) Dec 2024 hospitalization at [facility] due to weakness/ ? Near syncope. Tele: SR with PAC, junctional, pause 1.4 seconds 30 day MARIANN: NO AVN blocking agents 3 recorded episodes during awake hours ranging 3.1 -3.4 seconds ECG in office today: progression bifascicular block. Sinus bradycardia at 47bpm with PAC and junctional. * Assessment & Plan Note - LIZETH Huber - 01/14/2025 4:23 PM EDT Associated Problem(s): Cardiac and Vasculature Oct 2021 TTE EF 65% * Assessment & Plan Note - LIZETH Huber - 01/14/2025 1:30 PM EDT Associated Problem(s): ASHD (arteriosclerotic heart disease) 2019 Cardiac Cath at [facility] FINAL IMPRESSION: 1. Stable coronary artery disease. [...] PDA intermediate stenosis. Medical therapy is recommended. Current daily activity > 4 METs without concerning symptoms * Addendum Note - LIZETH Huber - 01/14/2025 1:30 PM EDTAddended by: BUCK BARLOW on: 01/14/2025 04:48 PM Modules accepted: Orders documented in this encounter Plan of Treatment DateTypeDepartmentCare Team (Latest Contact Info)Chhsgkgysfa47/13/2025 1:15 PM ESTAppointment [facility] [address] [facility] [address] [place] [address] 05/11/2025 1:00 PM ESTOffice Visit [address] [place] [address] Buck Barlow APRN-CNP [address]03 [facility] [place] [address] 09/14/2025 2:00 PM EDTOffice Visit [address] [place] [address] Crescencio Marin DO [facility]03 [facility], [address] [place] [address] NameTypePriorityAssociated DiagnosesOrder ScheduleReferral to Cardiac ElectrophysiologyOutpatient ReferralNon-Urgent Sinus node dysfunction (Multi) Expected: 01/14/2025 (Approximate), Expires: 01/14/2026documented as of this encounter Procedures Procedure NamePriorityDate/TimeAssociated DiagnosisCommentsECG 12-LEADRoutine 01/14/2025 1:30 PM EDT Sinus node dysfunction (Multi) documented in this encounter Results * ECG 12 Lead (01/14/2025 1:30 PM EDT)Specimen (Source)Anatomical Location / LateralityCollection Method / VolumeCollection TimeReceived Time Narrative CPACS - 01/19/2025 1:16 PM EDT Marked sinus bradycardia with junctional pauses, right bundle branch block, bifascicular block, abnormal ECG Authorizing ProviderResult TypeResult StatusBuck Barlow AUDIO VISUAL AIDS DIRECTOR-CNPECG ORDERABLES Final ResultPerforming OrganizationAddressCity/State/ZIP CodePhone Number CPACS documented in this encounter Visit Diagnoses Diagnosis Sinus node dysfunction (Multi)- Primary ASHD (arteriosclerotic heart disease) Coronary atherosclerosis of unspecified type of vessel, [place] or graft BMI 30.0-30.9,adult documented in this encounter Additional Health Concerns AssessmentNoted TimeA fall risk assessment has been completed for the patient 01/14/2025 1:31 PM EDTdocumented as of this encounter Care Teams Team MemberRelationshipSpecialtyStart DateEnd Date Frantz Conley MD [address] [facility] [address] [place] [address] PCP - GeneralInternal Medicine06/20/23documented as of this encounter
--- OUTSIDE RECORDS SUMMARY | 2025-01-16 10:21 | XMS_ITS | Continuity of Care Document ---
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 Name Role Phone Frantz Conley II Primary Care Provider Mick Branch MD Attending Provider Rc Hernandez MD Attending Provider [phone] Leisa Jennings MD Attending Provider Leisa Jennings MD Other Provider [phone] NON STAFF Primary Care Provider Unavailabl e Care Teams Patient Care Team Team Status: Active Member Role/Relationship Status Dates Alex Marin DO Weasand Trimmer Active NON STAFFPrimary Care ProviderActive Visit Care Team Team Status: Inactive Member Role/Relationship Status Dates Frantz Conley II MD Primary Care Provider Active Start: November 02, 2024 End: November 02Reva Curtis ProviderActiveStart: November 02, 2024 End: November 02, 2024 Visit Care Team Team Status: Inactive Member Role/Relationship Status Dates Frantz Conley II MD Primary Care Provider Active Start: November 11, 2024 End: November 11Reva Curtis ProviderActiveStart: November 11, 2024 End: November 11, 2024 Visit Care Team Team Status: Inactive Member Role/Relationship Status Dates Rc Hernandez MD Attending Provider Active Sta rt: December 25, 2024 End: December 25, 2024 Visit Care Team Team Status: Active Member Role/Relationship Status Dates Leisa Jennings MD Attending Provider Active Start: January 15, 2025 Leisa Jennings MDOther ProviderActiveStart: January 15, 2025 NON STAFFPrimary Care ProviderActiveStart: January 15, 2025 Sofia Mendenhall RNOther ProviderActiveStart: January 15, 2025 End: January 16, 2025Micisabel Sevilla RNOther ProviderActiveStart: January 15, 2025 End: January 16, 2025Jayashree Shah RNOther ProviderActiveStart: January 15, 2025 End: January 16, 2025Marjohn Hirsch RNOther ProviderActiveStart: January 15, 2025 End: January 16, 2025Michela Sweet RNOther ProviderActiveStart: January 15, 2025 End: January 16, 2025Rc Hernandez MDOther ProviderActiveStart: January 15, 2025 End: January 16, 2025Ronjayden Watson DOOther ProviderActiveStart: January 15, 2025 End: January 16, 2025Muschris Casey MDOther ProviderActiveStart: January 15, 2025 End: January 16, 2025Naveed Nice DOOther ProviderActiveStart: January 15, 2025 End: January 16ndserena Cespedes MDOther ProviderActiveStart: January 15, 2025 End: January 16, 2025Eleni Torres MDOther ProviderActiveStart: January 15, 2025 End: January 16, 2025Michaejustin Berkowitz DOOther ProviderActiveStart: January 15, 2025 End: January 16, 2025Tez Burt ProviderActiveStart: January 15, 2025 End: January 16, 2025Ara Koenigher ProviderActiveStart: January 15, 2025 End: January 16, 2025Tez Stewart ProviderActiveStart: January 15, 2025 End: January 16, 2025Dee Anthony MDOther ProviderActiveStart: January 15, 2025 End: January 16, 2025Karen Garcia MDOther ProviderActiveStart: January 15, 2025 End: January 16, 2025Michaejustin Curry , DOOther ProviderActiveStart: January 15, 2025 End: January 16, 2025Denise Rodriguez MDOther ProviderActiveStart: January 15, 2025 End: January 16, 2025Earjustin Barajas MDOther ProviderActiveStart: January 15, 2025 End: January 16todd Betts IN FLIGHT REFUELING OPERATOR-COther ProviderActiveStart: January 15, 2025 End: January 16arie Morales , APRNOther ProviderActiveStart: January 15, 2025 End: January 16, 2025Frjohnathan Cleveland MDOther ProviderActiveStart: January 15, 2025 End: January 16, 2025Naeilir Gonzalez MDOther ProviderActiveStart: January 15, 2025 End: January 16, 2025Khaleclair Merino MDOther ProviderActiveStart: January 15, 2025 End: January 16, 2025Lio Gutierrez DOOther ProviderActiveStart: January 15, 2025 End: January 16, 2025Linda Fabiano APRNOther ProviderActiveStart: January 15, 2025 End: January 16, 2025Shmiesha Pickens DOOther ProviderActiveStart: January 15, 2025 End: January 16, 2025Krunal Landrum MDOther ProviderActiveStart: January 15, 2025 End: January 16, 2025Pasowmya Barlow , APRNOther ProviderActiveStart: January 15, 2025 End: January 16britney Farr APRNOther ProviderActiveStart: January 15, 2025 End: January 16kelsey Ritchie MDOther ProviderActiveStart: January 15, 2025 End: January 16, 2025Dashanae Smallwood MDOther ProviderActiveStart: January 15, 2025 End: January 16gabino Gifford DOOther ProviderActiveStart: January 15, 2025 End: January 16, 2025Tez Larson ProviderActiveStart: January 15, 2025 End: January 16[place]en Park MDOther ProviderActiveStart: January 15, 2025 End: January 16evon Sherwood , APRNOther ProviderActiveStart: January 15, 2025 End: January 16, 2025Az Van MDOther ProviderActiveStart: January 15, 2025 End: January 16, 2025Kartik Webb MDOther ProviderActiveStart: January 15, 2025 End: January 16, 2025Douglas Roper MDOther ProviderActiveStart: January 15, 2025 End: January 16, 2025Rocky Browning MDOther ProviderActiveStart: January 15, 2025 End: January 16, 2025Cait Roe APRNOther ProviderActiveStart: January 15, 2025 End: January 16, 2025Ethan Eagle , APRNOther ProviderActiveStart: January 15, 2025 End: January 16, 2025Lee Ann Meneses MDOther ProviderActiveStart: January 15, 2025 End: January 16, 2025Sagume Thomson RNOther ProviderActiveStart: January 15, 2025 End: January 16, 2025 Chief Complaint and Reason for Visit Chief Complaint Admit Date k75.81 k76.0 k31.819 November 02, 2024 1 :22pm cirrohosis November 11, 2024 1: 26pm Unknown December 25, 2024 2: 15am . January 15, 2025 7 :39am Reason for Visit Admit Date Cirrhosis, nonalcoholic November 11 1:26pm Esophageal varices November 11, 2024 1: 26pm GAVE (gastric antral vascular ectasia) A ugust 2024 1:26pm Iron deficiency anemia November 11, 2024 1:26pm Metabolic dysfunction-associated steatoh epatitis (MASH) November 11, 2024 1:26pm Metabolic dysfunction-associ ated steatotic liver disease (MASLD) November 11, 2024 1:26pm Pancytopenia, acquired November 11, 2024 1:26pm Low platelet count January 15, 2025 7 :39am Near syncope January 15, 2025 7 :39am Sick sinus syndrome due to SA node dysfu nction January 15, 2025 7:39am Allergies, Adverse Reactions, Alerts Allergen Type Severity Reaction Last Updated Verified Status No Known Allergies Allergy Unknown January 15, 2025 8:07amYesActive Social History Smoking Status Status Start Date End Date Date of Observa tion Ex-smoker (finding) January 15, 2025 6:17pm Observation Status Observation Response Date of Response Legal Sex Male (finding) Sex Assigned At BirthMaleMay 1945 Family History Relationship Condition Age at Onset Recorded Date/T tanja brother Malignant neoplasm of lung Unknown motherDisorder of liverUnknownfatherChronic obstructive pulmonary diseaseUnknown sisterEpilepsyUnknownMalignant neoplasmUnknownsisterEpilepsyUnknownType 2 diabetes mellitusUnknownbrotherSuicideUnknownbrotherChronic obstructive pulmonary diseaseUnknownsisterChronic obstructive pulmonary diseaseUnknown Problems Active Problems Problem Diagnosis/Recorded Date Onset Date Status C omments Metabolic dysfunction-associ ated steatotic liver disease (MASLD) April 30, 2024 2:19pm Unknown Active Metabolic dysfunction-associated steatohepatitis (MASH)April 30, 2024 2:19pm UnknownActivePancytopenia, acquiredMay 2022 3:04pmUnknownActiveGAVE (gastric antral vascular ectasia)April 30, 2024 2:19pmUnknownActive Esophageal varicesFebruary 2024 2:19pmUnknownActiveLow platelet count January 15, 2025 10:07amUnknownActiveChronicNear syncopeOctober 2024 10:06amUnknownActiveSick sinus syndrome due to SA node dysfunctionOctober 2024 10:07amUnknownActiveIron deficiency anemiaJuly 2023 8:48amUnknown ActiveCirrhosis, nonalcoholicJune 2023 11:19amUnknownActive Inactive/Resolved Problems Problem Diagnosis/Recorded Date Onset Date Status C omments Non-alcoholic fatty liver disease August 08, 2022 1:56pm Unknown Resolved 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hepatitis (SCANLON)August 08, 2022 3:04pmUnknownResolvedNonalcoholic steatohepatitis (SCANLON)September 17, 2023 11:06am UnknownResolvedCalculus of gallbladder with cholecystitisFebruary 2021 4:18pmUnknownResolved Medications Medication Status Dose Units Route Directions Qty Days Refills S tart Date Stop Date End Date Reason(s) Instructions Adherence Multivitamin Tablet Active 1 TAB PO Every mornin g April 26, 2021 1:00amComplies with drug therapyAtorvastatin 20 mg tablet Khyhja39AXSIBosgz morningFebruary 2021 1:00amComplies with drug therapy Tizanidine 4 mg okqpzsUvqznjhmicsx7KKNGYqdvg at bedtimeFebruary 2021 1:00am August 08, 2022 1:55pmClopidogrel 75 mg hlgkktUhpcyr58GSOJSlknp morningFebruary 2021 1:00amComplies with drug therapyOmeprazole 40 mg capsule,delayed release(DR/EC)Gcgulfchsulw64TDRKHiadk daily as needed for HeartburnFebruary 2021 1:00amJune 2023 11:11amAspirin 81 mg Tablet,Delayed Release (Dr/Ec) Ggttupvocvja25UCMIWzksv morningFebruary 2021 1:00amJune 2023 11:09am Levothyroxine 100 mcg zzfiytJwdkwoyvuepp120UFBHUQvrsu morningFebruary 2021 1:00amJuly 2023 8:44amOmega 5-Ioa-Zri-Fish Oil (Fish Oil) 1,000 mg (120 mg-180 mg) OixnqgtOumaou3ODCCEJcjww times dailyFebruary 2021 1:00amComplies with drug therapyHydrocodone-Acetaminophen 5-325 mg phvbapIqgpafzzwilr0IGNGAW4H as needed for arow9150Jznystag 2021June 2021 11:42amCalculus of gallbladder with cholecystitis Calculus of gallbladder with chronic cholecystitis without obstructionOmeprazole 40 mg capsule,delayed release(DR/EC)Nvesxlcebjev61WVQCVslgr daily as needed for HeartburnJune 2023 11:10amFebruary 2024 2:21pmLevothyroxine 88 mcg jhcgihVjzvdm51VVYMUQiefzXxkd 2023 12:00amComplies with drug therapy Tizanidine 4 mg kbcznxMasipy4SCZXIbgap daily as needed for muscle spasticityJuly 2023 12:00amFreeTextSi tablet as needed Orally bid prn; Note: Source Status: Taking; Provider: Sarina Barton ( )Complies with drug therapyCarvedilol 3.125 mg tabletDiscontinued3.125MGPOTwice uoxzw447Fpxr 2023 12:00amFebruary 2024 2:21pmmust administer with a meal/foodMeclizine 25 mg dxnsveVdmisycitxpe86DUDWEgckzSgff 2023 12:00amJuly 2023 8:46am Carvedilol 3.125 mg tabletDiscontinued3.125MGPOTwice igvzo297591Evggelqb 2024 2:13pmAugust 2024 1:37pmmust administer with a meal/foodOmeprazole 40 mg capsule,delayed release(DR/EC)Rclhpqacmvkl41OJSXGpksgYgngjfnf 2024 2:14pmFebruary 2024 2:25pmHeartburnOmeprazole 40 mg capsule,delayed release(DR/EC)Nmnuqo59NPUIBmmvj912060Narmcnxo 2024 2:25pmHeartburnComplies with drug therapy Immunizations Immunization Event Date Not Given Reason Dose Number Cad Administrator Lot Number Reason(s) Given Vaccine Information Statement (VIS) Detail Administration Location COVID19 Ad26.COV2.S (Tugg) March 01 COVID-19 mRNA-1273 (Moderna)April 28OVID-19 mRNA-1273 (Moderna)May 26, 2020 Procedures Procedure Date Performed Status Urine Culture December 25, 2024 completed Relevant Diagnostic Tests and/or Laboratory Data Laboratory Results Test Collection Date/Time Result Date/Time Result Interpretation Reference Range Result Comment Performing Site Corrected White Blood Count November 02, 2024 1:34pm November 02, 2024 2:11pm 3.0 10*3/uL Below low normal 4.1-10.5 [facility] [id number] [address] [place] [address]Vodnmdmrkgm WBC CountAugust 2024 1:34pmAugust 2024 2:11pm3.0 10*3/uLBelow low normal4.1-10.5[facility] [id number] [address] [facility] [address]Jtv Blood CountAugust 2024 1:34pmAugust 2024 2:11pm 3.58 10*6/uLBelow low normal3.90-5.60[facility] [id number] [address] [facility] [address]YdahoutqjvRvykbq 2024 1:34pmAugust 2024 2:11pm11.4 g/dLBelow low giuhcz54.0-17.0[facility] [id number] [address] [facility] [address]UfhknkzbxxEdeqtz 2024 1:34pmAugust 2024 2:11pm34.1 %Below low hbmyoi73.8-50.0[facility] [id number] [address] [facility] [address]Vvib Corpuscular VolumeAugust 2024 1:34pmAugust 2024 2:11pm95.2 fL83.5-101[facility] [id number] [address] [facility] 278[address]Dhpj Corpuscular HemoglobinAugust 2024 1:34pmAugust 2024 2:11pm31.9 pg27.5-35.2[facility] [id number] [address] [facility] [address]Sodr Corpuscular Hemoglobin ConcentAugust 2024 1:34pm [place] 2024 2:11pm33.5 g/dL32.5-35.6[facility] [id number] [address] [facility] [address]Tgs Cell Distribution WidthAugust 2024 1:34pmAugust 2024 2:11pm16.4 %Above high .0-14.8[facility] [id number] [address] [facility] [address]Tkjcgyhp CountAugust 2024 1:34pmAugust 2024 2:11pm 102 10*3/uLBelow low qbykdq443-000IjzqjoyfpUniversity [facility] [id number] [address] [facility] [address]Fiay Platelet VolumeAugust 2024 1:34pmAugust 2024 2:11pm8.0 fL6.6-10.1[facility] [id number] [address] [facility] [address]Nyxrgxrbuil (%) (Auto)November 02, 2024 1:34pmAugust 2024 2:11pm74.9 %.[facility] [id number] [address] [facility] [address]Bdbxynsyxqr (%) (Auto)November 02, 2024 1:34pmAugust 2024 2:11pm15.8 %.[facility] [id number] [address] [facility] [address]Uohuouuah (%) (Auto)November 02, 2024 1:34pmAugust 2024 2:11pm6.7 %.[facility] [id number] [address] [facility] [address]Qhzpdbrgubf (%) (Auto)November 02, 2024 1:34pmAugust 2024 2:11pm1.8 %.[facility] [id number] [address] [facility] [address]Kbkxngjdp (%) (Auto)November 02, 2024 1:34pmAugust 2024 2:11pm0.8 %.[facility] [id number] [address] [facility] [address]Pujvebdtb RBC Relative Count (auto)November 02, 2024 1:34pm November 02, 2024 2:11pm0.0 /100{WBC}0-0.5[facility] [id number] [address] [facility] [address]Idlvoroulfy # (Auto)November 02, 2024 1:34pmAugust 2024 2:11pm2.2 10*3/uL1.8-7.7[facility] [id number] [address] [facility] [address]Vxwbvmausfa # (Auto)November 02, 2024 1:34pmAugust 2024 2:11pm0.5 10*3/uLBelow low normal1.00-4.8[facility] [id number] [address] [facility] [address]Qorrlvwjp # (Auto)November 02, 2024 1:34pmAugust 2024 2:11pm0.2 10*3/uL0.0-0.8[facility] [id number] [address] [facility] [address]Xdsbyuhwqlm # (Auto)November 02, 2024 1:34pmAugust 2024 2:11pm0.1 10*3/uL0.0-0.45[facility] [id number] [address] [facility] [address]Gkyhtrany # (Auto)November 02, 2024 1:34pmAugust 2024 2:11pm0.0 10*3/uL0.0-0.2[facility] [id number] [address] [facility] [address]Cmnoziclrjo TimeAugust 2024 1:34pmAugust 2024 2:34pm13.5 sAbove high normal9.0-12.9A hematocrit value greater than 55% may lead to inaccurate results in coagulation testing. Patientshaving hematocrit values >55% require a special collection tube for coagulation studies. Please c ontact the laboratory at [phone] for redraw instructions.[facility] [id number] [address] [facility] [address]Tntacjkbs Time International RatioAugust 2024 1:34pm November 02, 2024 2:34pm1.2INR Therapeutic Range A) Pre- and Peroperative OAT started two weeks before surgery. NOT HIP SURGERY: 1.5 - 2.5 HIP SURGERY: 2 - 3B) Primary and secondary prevention of venous THROMBOSIS: 2 - 3C) Active venous thrombosis, pulmonary embolismand prevention of recurrent venous thrombosis: 2 - 3D) Prevention of arterial thromboembolismincluding patients with mechanical heart valves: 3 - 4.5[facility] [id number] [address] [facility] [address]Rmudchu LevelAugust 2024 1:34pmAugust 2024 2:45pm 120 mg/dLAbove high lusbsd70-331XTG recommended reference rangeRandom Glucose Reference Range is dependent on time and content of last meal. Glucose of more than 200 mg/dL in a nonstressed, ambulatory subject supports the diagnosisof Diabetes Mellitus.[facility] [id number] [address] [facility] [address]Qywwr Urea NitrogenAugust 2024 1:34pmAugust 2024 2:45pm15 mg/dL7-25[facility] [id number] [address] [place] [id number] 2024 1:34pmAugust 2024 2:45pm0.71 mg/dL0.70-1.30[facility] [id number] [address] [facility] [address]Fzywipaio GFR (CKD-EPI)November 02, 2024 1:34pmAugust 2024 2:45pm> 60.0 mL/MinUniversity [facility]als [facility] [id number] [address] [facility] [address]Yafmxs LevelAugust 2024 1:34pmAugust 2024 2:34tp815 mmol/W826-344LqwpfnsioUniversity [facility]als [facility] [id number] [address] [facility] [address]Xvtfkiyrx LevelAugust 2024 1:34pmAugust 2024 2:45pm 3.9 mmol/L3.5-5.1[facility] [id number] [address] [facility] [address]Stdiliyq LevelAugust 2024 1:34pmAugust 2024 2:45pm 110 mmol/LAbove high jgqfki40-899KsephcrfgUniversity [facility]als [facility] [id number] [address] [facility] [address]Bygehw Dioxide LevelAugust 2024 1:34pmAugust 2024 2:45pm29.1 mmol/L21.0-31.0[facility] [id number] [address] [facility] [address]Kdqcn GapAugust 2024 1:34pmAugust 2024 2:45pm5.8 mEq/LBelow low normal6.0-15.0[facility] [id number] [address] [facility] [address]Akifdxx LevelAugust 2024 1:34pmAugust 2024 2:45pm 7.9 mg/dLBelow low normal8.6-10.3[facility] [id number] [address] [facility] [address]Hqssg ProteinAugust 2024 1:34pmAugust 2024 2:45pm 5.8 g/dLBelow low normal6.4-8.9[facility] [id number] [address] [facility] [address]FtqjmveItddoh 2024 1:34pmAugust 2024 2:45pm3.1 g/dL Below low normal3.5-5.7[facility] [id number] [address] [facility] [address]OtfowozhTapbqo 2024 1:34pmAugust 2024 2:45pm2.7 g/dLUniversity [facility]als [facility] [id number] [address] [facility] [address]Ioviclt/Globulin RatioAugust 2024 1:34pmAugust 2024 2:45pm1.1[facility] [id number] [address] [facility] [address]Xowuz BilirubinAugust 2024 1:34pmAugust 2024 2:45pm 0.9 mg/dL0.3-1.0[facility] [id number] [address] [facility] [address]Rlwptalbj Amino Transf (AST/SGOT)November 02, 2024 1:34pmAugust 2024 2:45pm58 U/LAbove high -44VjjxejzmoUniversity Hospitals [facility] [id number] [address] [facility] 8[address]Xwyhgbr Aminotransferase (ALT/SGPT)November 02, 2024 1:34pm November 02, 2024 2:45pm52 U/L7-52[facility] [id number] [address] [facility] [address]Cogumfxk PhosphataseAugust 2024 1:34pmAugust 2024 2:45vv662 U/LAbove high bekpyu71-344GhshlgkjcUniversity Hospitals [facility] [id number] [address] [facility] [address]Nwnexqgx Creatinine Clearance (ChemAugust 2024 1:34pm November 02, 2024 2:45pmN/[facility] [id number] [address] [place] [address] Microbiology Results Procedure Source Result Collection Date/Time Result Date/Time Result Comment Performing Site Urine Culture Urine No Growth 2 Days December 2:15am December 27, 2024 9:46am [facility] [id number] [address] [place] [address] Vital Signs Vital Reading Result Reference Range Collection Date/Time Height 62 [in_i] November 11, 2024 1:12ueAvngha46.28 kgAugus2024 1:33pmHeart Rate61 /min 60-100August 2024 1:33pmBP Uyeezrra146 mm[Hg]100-140August 2024 1:33pmBP Vupfinvvf66 mm[Hg]60-100August 2024 1:33pmBMI (Body Mass Index) 32.3 kg/v6Xutqzy2024 1:19exIvpyip13 [in_i]January 15, 2025 8:13amWeight 79.00 kgOctober 2024 6:00amBody Jlwyolsswtm02.1 [degF]97.6-99.0October 2024 12:00pmHeart Rate69 /fja24-870Kbvoffs 2024 12:00pmRespiratory rate17 /ido22-02Linszdz 2024 12:00pmOxygen saturation by Pulse %95-100October 2024 12:00pmBP Plnuxzub975 mm[Hg]100-140October 2024 12:00pmBP Popfstfjv69 mm[Hg]60-100October 2024 12:00pmInhaled oxygen flow rate8 L/minOctober 2024 12:30pm Advance Directives Advance Directive Response Recorded Date/ Time Advance Directives No April 24, 2021 10:52am Insurance Providers Guarantor Pankaj Rishabh Matthews Address [address] [facility]Hywsywf Info.Home Phone: Payer Group Member ID Coverage Type Subscriber Relationship to Subscriber Effective Date Expiration Date Medicare [id number] A Matthews Id: [id number] [address] [place] [address] Home Phone: Email: [email or web address] [email or web address] A Byron Id: [id number] [address] [place] [address] Home Phone: Email: [email or web address] [email or web address] Encounter Location(s) Arrival/Admit Date Discharge/Departure Date Discharge/Departure Disposition Provider(s) Departed Clinical -[facility] November 02, 2024 1:22pm November 02, 2024 1:23pm Discharged to home care or self care (routine discharge) Mick Branch MD Departed Physician/ Provider Office Visit -[facility] November 11, 2024 1:26pm November 11, 2024 2:01pm Discharged to home care or self care (routine discharge) Mick Branch MD Departed Referred -[facility] December 25, 2024 2:15am December 25, 2024 2:16am Discharged to home care or self care (routine discharge) Rc Hernandez MD Non-patient / Non-visit -[facility] December 242024 7:39am Cassandra Jennings Recent Diagnosis Onset Date Admit Date Cirrhosis, [...] 1:26pm Pancytopenia, acquired Unknown November 112024 1:26pm Low platelet count Unknown January 15, 2025 7:39am Near syncope Unknown January 15 7:39am Sick sinus syndrome due to SA node dysfunction U nknown January 15, 2025 7:39am Assessments Diagnosis Onset Date Resolution Status Admit Date Cirrhosis, nonalcoholic acuteAugust 2024 1:26pmEsophageal varicesacuteAugust 2024 1:26pmGAVE (gastric antral vascular ectasia)acuteAugus2024 1:26pmIron deficiency anemiaacuteAugust 2024 1:26pmMetabolic dysfunction-associated steatohepatitis (MASH)acuteAugust 2024 1:26pmMetabolic dysfunction- associated steatotic liver disease (MASLD)acuteAugust 2024 1:26pm Pancytopenia, acquiredchronicAugust 2024 1:26pmLow platelet countacute January 15, 2025 7:39amNear syncopeacuteOct2024 7:39amSick sinus syndrome due to SA node dysfunctionacuteJanuary 15, 2025 7:39am Plan of Treatment Author Mick Branch [facility] 2:09pmThe patient is continued on clopidogrel by his [...] scheduled test information is unavailable Pending Tests Pending diagnostic test information is unavailable Future Visits Future appointment information is unavailable Future Procedures Procedure Name Ordered Date Scheduled Date PC pacemaker analysis sing January 15, 2025 2: 31pm January 16, 2025 5:00am Consult to Adult Hospitalist January 15, 2025 1:09pm January 15, 2025 1:09pm Discharge Order January 16, 2025 1:04pm Octobe r 2024 1:04pm Future Medications Future medication information is unavailable Patient Instructions Instruction Admit Date Know your Meds January 15, 2025 7 :39am Hospital Discharge Instructions Additional Instructions Post-procedure instructions for Cardiac Implantable Electronic Devices (CIEDs), including: -? Pulse generators change out -? Pacemaker implant: single chamber, dual chambers, or biventricular pacemaker -? Implantable cardiac defibrillator -? Implantable loop recorder Activities: - Take the rest of today off and rest - Use the sling for one more day during the day. Use the sling when sleeping for the next five days. Avoid using the sling after that. - No driving for one week. - Keep the affected arm from twisting movements. Do not put it behind your back for the next 3 weeks - Do not lift more than 10 pounds with the affected arm for the next 3 weeks. Diet: - Resume your usual prescribed diet. Wound Care: - Remove the dressing after 3 days on Sunday, January 19, 2025. - Do not remove the steri-strips. Leave the white steri-strips over the incision. These will fall off on their own over time. - Keep the incision site dry for one week. - Do not itch or touch the incision site. - You may take a sponge bath in the first 7 days without wetting the incision area; the incision must stay dry. - You may take a shower after 7 days on 01/23/2025. - Do not use ointment, cream, or lotion on the incision site. - Mild redness and puffiness are expected and should get better with time. - Any drainage from the incision, fever, chills, pain, and firm swelling requires immediate medical attention and warrant a visit or at least a telephone call to notify the surgery team. Follow-up: - Wound care check on Saturday, January 25, 2025 at 1:00 pm. - Device Clinic appointment on April 22, 2025 at 11:00 am. Please report to the main entrance [facility] for the above appointments. Plan on arriving 15 minutes prior to your scheduled appointment time. ??
--- OUTSIDE RECORDS SUMMARY | 2025-01-27 11:00 | XMS_ITS | Encounter Summary ---
Author Organization [facility] Address [address] [place] [address] Phone Care Team Providers Care Estate Conservator Name Role Phone Frantz Conley MD Primary Care Provider [phone] Reason for Referral * Consultation (Routine) - AuthorizedSpecialtyDiagnoses / ProceduresReferred By ContactReferred To ContactCardiology Diagnoses Localized edema Procedures Follow Up In Cardiology Crescencio Marin DO [address] [place] [address], [address] [address] Phone: tel: fax: Crescencio Marin DO [address] [place] [address] 2, [address] [address] Phone: tel: fax: Referral IDStatusReasonStart DateExpiration DateVisits RequestedVisits [id number]/5/202511/5/202611 * CV Imaging (Routine) - AuthorizedSpecialtyDiagnoses / ProceduresReferred By ContactReferred To ContactCardiology Diagnoses Localized edema Sinus node dysfunction (Multi) ASHD (arteriosclerotic heart disease) Ascending aorta dilation Procedures Transthoracic Echo Complete IL ECHO TTHRC R-T 2D W/WOM-MODE COMPL SPEC&COLR D Crescencio Marin DO [address] [place] [address] 2, [address] [address] Phone: tel: fax: Referral IDStatusAdaliFort Loramie DateExpiration DateVisits RequestedVisits [id number] Perform Procedure * Consultation (Routine) - AuthorizedSpecialtyDiagnoses / ProceduresReferred By ContactReferred To ContactCardiology Diagnoses Localized edema Procedures Follow Up In Cardiology Crescencio Marin DO [address] [place] [address], [address] [address] Phone: tel: fax: Maddie Barlow, FRONT OFFICE ASSISTANT-[facility] [address] [place] [address], [address] [address] Phone: tel: fax: Referral IDStatRandileroy DateExpiration DateVisits RequestedVisits [id number]/202511/5/202611 Reason for Visit * ReasonCommentsFollow-up2 week follow up for ASHD Encounter Details DateTypeDepartmentCare Team (Latest Contact Info)Klqgugpynsz27/05/2025 11:00 AM ESTOffice Visit [facility] [address] [place] [phone] Crescencio Marin DO [address] [place] [id number] Localized edema; Sinus node dysfunction (Multi); PVC (premature ventricular contraction); History of coronary artery stent placement; ASHD (arteriosclerotic heart disease); Ascending aorta dilation; Former cigarette smoker; BMI 31.0-31.9,adult; CHF (congestive heart failure), NYHA class I, unspecified failure chronicity, diastolic (Multi) Social History Tobacco UseTypesPacks/DayYears UsedDateSmoking Tobacco: FormerCigarettesQuit: 2004Smokeless Tobacco: FormerQuit: 1980Alcohol UseStandard Drinks/WeekComments Never0 (1 standard drink = 0.6 oz pure alcohol)Sex and Gender InformationValue Date RecordedSex Assigned at BcbrzYmgr17/06/2024 10:10 AM EDTLegal SexMale 06/10/2023 2:05 PM EDTGender TbiyksonWxsh29/06/2024 10:10 AM EDTSexual SpeqrdlannjGvzckseb69/06/2024 10:10 AM EDTdocumented as of this encounter Last Filed Vital Signs Vital SignReadingTime TakenCommentsBlood Eceqwnad834/6401/27/2025 10:59 AM EST Tprxi669301/27/2025 10:59 AM ESTTemperature--Respiratory Rate--Oxygen Saturation-- Inhaled Oxygen Concentration--Jmcjoa17.1 kg (192 lb)01/27/2025 10:59 AM EST Yvexce356.1 cm (5' 5 )01/27/2025 10:59 AM ESTBody Mass Index31.9501/27/2025 10:59 AM ESTdocumented in this encounter Functional Status * BPAnswerDate of MlfteqeffrWygprs083/6401/27/2025 10:59 AM Claudette Rangel LPN * PulseAnswerDate of HzfuyqmfqrQsivwo5881/05/2025 10:59 AM Claudette Rangel LPN * Communicable Disease ScreeningQuestionAnswerDate of AssessmentAuthorDo you have any of the following new or worsening symptoms?None of these01/27/2025 10:36 AM Yesika David MA documented as of this encounter Patient Instructions * Patient Instructions* Shawna Arce RN - 01/27/2025 11:00 AM EST Please bring all medicines, vitamins, and herbal supplements with you when you come to the office. Prescriptions will not be filled unless you are compliant with your follow up appointments or have a follow up appointment scheduled as per instruction of your physician. Refills should be requested at the time of your visit. BMI was above normal measurement. Current weight: 87.1 kg (192 lb) Weight change since last visit (-) denotes wt loss 11 lbs Weight loss needed to achieve BMI 25: 42.1 Lbs Weight loss needed to achieve BMI 30: 12.1 Lbs Provided instructions on dietary changes Provided instructions on exercise. Stop aspirin Start lasix and potassium daily for 2 weeks. documented in this encounter Progress Notes * Crescencio Marin, DO - 01/27/2025 11:00 AM EST Chief Complaint Patient presents with Follow-up 2 week follow up for ASHD Subjective Pankaj Matthews is a 79 y.o. male 79-year-old gentleman returns status post urgent pacemaker for prolonged greater than 3-second pauses on recent monitoring and ECG, with episode of near syncope at his 's . He is otherwisedoing well other than complaints of 20 pound weight gain and edema. Upon examination today he clearly has 3+ edema extending above the knee which is a new finding. He is historically he has normal left ventricular function from outside echo report from his previous cardiology eval Patient has known history of ASHD with PCI of the ostial/proximal circumflex at [facility] he says around 4+ years ago and IFR assessment of the PLV branch which was negative. He has a history of iron deficiency anemia, history of subarachnoid hemorrhage July 2021, history ofcirrhosis, history of GI bleeding. Recent device report reveals AMS which may be concerning for paroxysmal atrial fibrillation. He is unable to take anticoagulation due to his bleeding history. We discussed his options with him including Watchman device or recurrent trial of anticoagulation both of which he is not interested in at the present time; and we did discuss risks of thromboembolic disease and stroke with him. He is on combination of aspirin and clopidogrel for unknown reason, no recent ACS events or recent stenting or stroke. He states his aspirin was recently started at the [facility] when he was evaluated for syncope/near syncopal event Recommendations: Discontinue aspirin, initiate furosemide 20 daily and potassium 10 mEq daily for the next 14 days, follow-up with nurse practitioner in 12 weeks with a BNP and a chemistry, to simplyreassess for edema and systolic/diastolic heart failure, will also obtain echocardiogram to assess LV function and proceed accordingly. We should also reinvestigate consideration for watchman. Review of Systems All other systems reviewed and are negative. Vitals: 01/27/25 1059 BP: 118/64 BP Location: Left arm Patient Position: Sitting Pulse: 66 Weight: 87.1 kg (192 lb) Height: 1.651 m (5' 5 ) [...] back: Normal range of motion. Right lower le+ Edema present. Left lower le+ Edema present. Skin: General: Skin is warm and dry. [...] tablet 1 tablet, Daily fish oil concentrate ([place]-3) 120-180 mg capsule 1,000 mg, Daily levothyroxine (SYNTHROID, LEVOXYL) 88 mcg, Daily before breakfast multivitamin with minerals tablet 1 tablet, Daily omeprazole (PRILOSEC) 40 mg, Daily tiZANidine (ZANAFLEX) 4 mg, Nightly PRN Assessment/Plan 1. Localized edema 2. Sinus node dysfunction (Multi) 3. PVC (premature ventricular contraction) 4. History of coronary artery stent placement 5. ASHD (arteriosclerotic heart disease) 6. Ascending aorta dilation 7. Former cigarette smoker 8. BMI 31.0-31.9,adult Scribe Attestation By signing my name below, Shawna Olivera RN , Scribe attest that this documentation has been prepared under the direction and in the presence of Lion Marin DO. Provider Attestation - Scribe documentation All medical record entries made by the Scribe were at my direction and personally dictated by me. Sudarshan reviewed the chart and agree that the record accurately reflects my personal performance of the history, physical exam, discussion and plan. documented in this encounter Plan of Treatment DateTypeDepartmentCare Team (Latest Contact Info)Agzchnbqtcd43/13/2025 1:15 PM ESTAppointment [facility] [address] [place] [address] 05/11/2025 1:00 PM ESTOffice Visit [address] [place] [phone] Maddie Barlow, FRONT OFFICE ASSISTANT-FARM AGENT [address] [facility] 2, [address] [address] 09/14/2025 2:00 PM EDTOffice Visit [address] [phone] Crescencio Marin DO [facility] [facility] 2, [address] [address] NameTypePriorityAssociated DiagnosesOrder ScheduleB-Type Natriuretic PeptideLab Routine Localized edema Sinus node dysfunction (Multi) ASHD (arteriosclerotic heart disease) Ascending aorta dilation CHF (congestive heart failure), NYHA class I, unspecified failure chronicity, diastolic (Multi) Expected: 01/27/2025, Expires: 01/27/2026Transthoracic Echo Complete EchocardiographyRoutine Localized edema Sinus node dysfunction (Multi) ASHD (arteriosclerotic heart disease) Ascending aorta dilation Expected: 01/27/2025 (Approximate), Expires: 01/27/2027documented as of this encounter Visit Diagnoses Diagnosis Localized edema Edema Sinus node dysfunction (Multi) PVC (premature ventricular contraction) Other premature beats History of coronary artery stent placement ASHD (arteriosclerotic heart disease) Coronary atherosclerosis of unspecified type of vessel, absentee-shawnee or graft Ascending aorta dilation Thoracic aneurysm without mention of rupture Former cigarette smoker Personal history of tobacco use, presenting hazards to health BMI 31.0-31.9,adult CHF (congestive heart failure), NYHA class I, unspecified failure chronicity, diastolic (Multi) documented in this encounter Additional Health Concerns AssessmentNoted TimeA fall risk assessment has been completed for the patient 01/27/2025 10:56 AM ESTdocumented as of this encounter Care Teams Team MemberRelationshipSpecialtyStart DateEnd Date Frantz Conley MD [address] [facility] [address] [place] [address] PCP - GeneralInternal Medicine06/20/23documented as of this encounter
--- OUTSIDE RECORDS SUMMARY | 2025-01-29 09:10 | XMS_ITS | Clinical Summary ---
Author Organization [facility] Healthcare Address [address] [place] [address] Care Team Providers Care Category Development Analyst Name Role Phone Frantz Conley MD Primary Care Provider [phone] Frantz Conley MD Unavailable [phone] Allergies No known active allergies Medications MedicationSigDispense QuantityRefillsLast FilledStart DateEnd DateStatus Multiple Vitamins-Minerals (ONE DAILY ADULTS 50+ PO) Take 1 tablet by mouth 1 (one) time each day.Active [place]-3 Fatty Acids (Fish Oil) 1000 MG capsule delayed-release Take 1 capsule by mouth 1 (one) time each day.09/13/2014ctive omeprazole (PriLOSEC) [address] capsule Indications:Gastroesophageal reflux disease without esophagitisTAKE 1 CAPSULE IN THE MORNING AND 1 CAPSULE IN THE EVENING. TAKE BEFORE MEALS. 180 capsule 4Active tiZANidine (Zanaflex) 4 MG tablet Indications:Muscle crampsTAKE 1 TABLET DAILY AT NIGHT TIME NEEDED 90 tablet 5Active clopidogrel (Plavix) 75 MG tablet Indications:PVCs (premature ventricular contractions)Take 1 tablet (75 mg) by mouth Daily 90 tablet 5Active levothyroxine (Synthroid) 88 MCG tablet Indications:Acquired hypothyroidismTAKE 1 TABLET DAILY (DECREASED) 100 tablet 5Active Ferrous Gluconate (iron) 240 (27 Fe) MG tablet Take 1 tablet by mouth DailyActive atorvastatin (Lipitor) 20 MG tablet Indications:Mixed hyperlipidemiaTake 1 tablet (20 mg) by mouth at bedtime 100 tablet 508/ctive aspirin 81 MG EC tablet Take 81 mg by mouth DailyActive polyethylene glycol, PEG, 3350 (Miralax) 17 g packet Indications:Constipation, unspecified constipation typeTake 17 g by mouth Daily as needed (constipation) 30 packet 5Active benzonatate (Tessalon) 200 MG capsule Indications:Cough, unspecified typeTake 1 capsule (200 mg) by mouth 3 (three) times a day as needed for cough for up to 10 days Do notcrush or chew. 30 capsule Expired Active Problems ProblemNoted DateDiagnosed DateGrade II diastolic rvbkhgztnek19/29/2025 Esophageal varices without hatyajot60/29/2025Other secondary pulmonary wypsulsewzac20/29/2025Sinus fzhuxvsgzyl64/14/2025MI 29.0-29.9,adult01/01/2024 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hepatitis (SCANLON)10/21/2023 History of coronary artery stent cobrzkpwo07/28/2024Former cigarette smoker 06/20/2023Iron deficiency dumqlq9505/08/2023ancytopenia, jwajnzur11/29/2024enign essential HTN09/17/2022 Overview (04/22/2023): Last Assessment & Plan: Hypertension is well controlled Continue lifestyle modifications- low sodium diet, heart healthy diet and regular activity. Benign hypertensive heart and CKD, 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), w CHF09/17/2022 Overview (04/22/2023): Last Assessment & Plan: HTN is well controlled F/U with PCP for monitoring of renal function Dilatation of aorta09/17/2022 Overview (04/22/2023): Mild aortic dilation on echo 2018 Last Assessment & Plan: Mild dilatation on last echo- will repeat echo at 1 year- Oct-Nov Mixed gshrosgdgxdhtu07/ Overview (10/21/2023): Last Assessment & Plan: Continue statin Abnormal LFTs08/13/2022cquired pfxdyibzqafguy50/22/2023ervical spondylolysis 08/13/2022hronic hhvqwbiv61/22/2023oronary artery disease involving [place] coronary artery of [place] heart without angina uncoovff62/22/2023iverticulosis of colon08/13/2022astroesophageal reflux vqpwhkf5608/13/2022Muscle cramps 08/13/2022Other chronic pain08/13/2022VCs (premature ventricular contractions) 08/13/2022Sinus nmwcotqivc12/22/2023Situational kcgutya5508/13/2022Unsteadiness on feet08/13/2022Vitamin D bnetczjcup69/22/2023 Resolved Problems ProblemNoted DateDiagnosed DateResolved DateCalculus of gallbladder with izaxwtxltewax19Fatty liver disease, brilzhizjrpe22/14/2024 10/21/2023cute oqidqgevhdyge42alculus of gallbladder with acute on chronic cholecystitis without Cholelithiasis without qramgrikhem56ermatophytosis of nail IndigestionIntracranial subarachnoid dwieasidsb27ight upper quadrant pain Encounters DateTypeDepartmentCare JzdvBzzsagpfeuk70/05/2025bstract [facility] [address] [place] [address] Frantz Conley MD 01/19/2025Patient Outreach [facility] [address] [place] [phone] Jazmin Toribio LSW 01/07/2025 11:30 AM EDTOffice Visit [facility] [address] [place] [address] Shey Campbell, CASTING MACHINE SET UP OPERATOR Hospital discharge follow-up (Primary Dx); Cough, unspecified type; Constipation, unspecified constipation type01/07/2025amboo [facility]sheet [facility] [address] [facility] [address] [place] [address] Shey Campbell, CASTING MACHINE SET UP OPERATOR 01/07/20255233Yuxcyr89/06/2025bstract [facility] [address] [facility] [address] [place] [address] Frantz Conley MD 12/28/2024Patient Outreach [facility] [address] [place] [address] Dang Bosch LPN 12/28/2024bstract [facility] [address] [place] [address] Dang Bosch LPN 12/25/2024linisync Result Encounter [facility] External Department Unsolicited Provider, Generic External Data 12/21/20242542Hhofca00/15/2025Clinisync Result Encounter [facility] External Department Unsolicited Provider, Generic External Data 11/11/2024bstract [facility] [address] [facility] [address] [place] [address] Frantz Conley MD 10/30/2024Refill [facility] [address] [facility] [address] [place] [address] Frantz Conley MD Mixed akerpdcmxxerib75/08/2025Telephone [facility] [address] [facility] [address] [place] [address] Frantz Conley MD from Last 3 Months Immunizations ImmunizationAdministration DatesNext DueInfluenza, High Dose Seasonal, Preservative Free12/15/2023,01/06/2021,02/06/2019Influenza, High-dose Seasonal, Quadrivalent, Preservative Free03/12/2024,03/21/2022,01/06/2021,01/06/2020, 01/14/2018,12/03/2016Influenza, Seasonal, Quadrivalent, Ugtbbaiqon84/13/2023 Influenza, seasonal, injectable, preservative free03/28/2015Influenza, seasonal, intradermal, preservative free01/10/2015Pneumococcal Polysaccharide PPSV23 09/29/2018Zoster, Mrzyuqidkrg59/26/2020,04/10/2019 Family History Medical HistoryRelationNameCommentsKidney diseaseMotherRelationNameStatus CommentsFatherDeceasedMotherDeceased Social History Tobacco UseTypesPacks/DayYears UsedDateSmoking Tobacco: NeverSmokeless Tobacco: NeverAlcohol UseStandard Drinks/WeekCommentsNot Currently0 (1 standard drink = 0.6 oz pure alcohol)caffeine intake: 1-2 cups per day.Humiliation, Afraid, Rape, and Kick questionnaireAnswerDate RecordedWithin the last year, have you been afraid of your partner or ex-partner?No04/15/2023Within the last year, have you been humiliated or emotionally abused in other ways by your partner or ex-partner?No04/15/2023Within the last year, have you been kicked, hit, slapped, or otherwise physically hurt by your partner or ex-partner?No04/15/2023Within the last year, have you been raped or forced to have any kind of sexual activity by your partner or ex-partner?No04/15/2023Social Connection and Isolation Panel AnswerDate RecordedIn a typical week, how many times do you talk on the phone with family, friends, or neighbors?Once a week04/15/2023How often do you get together with friends or relatives?Patient dlafmzbu38/22/2024How often do you attend anabaptist or methodist services?More than 4 times per year04/15/2023o you belong to any clubs or organizations such as anabaptist groups, unions, fraternal or athletic groups, or school groups?Yes04/15/2023How often do you attend meetings of the clubs or organizations you belong to?More than 4 times per year04/15/2023 Are you , , , , never , or living with a partner?Xxzsayg3204/15/2023UDIT-CAnswerDate RecordedQ1: How often do you have a drink containing alcohol?Never04/15/2023Q2: How many drinks containing alcohol do you have on a typical day when you are drinking?Patient does not drink 04/15/2023Q3: How often do you have six or more drinks on one occasion?Never 04/15/2023Overall Financial Resource Strain (CARDIA)AnswerDate RecordedHow hard is it for you to pay for the very basics like food, housing, medical care, and heating?Not hard at all04/15/2023HQ-2AnswerDate RecordedPatient Health Questionnaire-2 Zuclx623[facility] [place] of Occupational [facility] - Occupational Stress QuestionnaireAnswerDate RecordedDo you feel stress - tense, restless, nervous, or anxious, or unable to sleep at night because yourmind is troubled all the time - these days?Patient tdohcrec32/22/2024Exercise Vital Sign AnswerDate RecordedOn average, how many days per week do you engage in moderate to strenuous exercise (like a brisk walk)?Patient kjdrqygu26/22/2024On average, how many minutes do you engage in exercise at this level?Patient declined 04/15/2023Hunger Vital SignAnswerDate RecordedWithin the past 12 months, you worried that your food would run out before you got the money to buymore.Never true04/15/2023Within the past 12 months, the food you bought just didn't last and you didn't have money to get more.Never true04/15/2023RAPARE - TransportationAnswerDate RecordedIn the past 12 months, has lack of transportation kept you from medical appointments or from getting medications?No 04/15/2023In the past 12 months, has lack of transportation kept you from meetings, work, or from getting things needed for daily living?No04/15/2023 Housing Stability Vital SignAnswerDate RecordedIn the last 12 months, was there a time when you were not able to pay the mortgage or rent on time?No04/15/2023In the last 12 months, how many places have you lived?In the last 12 months, was there a time when you did not have a steady place to sleep or slept in ashelter (including now)?No04/15/2023Sex and Gender InformationValueDate RecordedSex Assigned at BirthNot on fileLegal IwcSxiz1506/06/2022 6:37 PM EDT Gender IdentityNot on fileSexual OrientationNot on file Last Filed Vital Signs Vital SignReadingTime TakenCommentsBlood Bexehhyt484/7401/07/2025 11:38 AM EDT Ddvet081501/07/2025 11:38 AM EDTTemperature--Respiratory Nwab6223 11:38 AM EDTOxygen Akylvnvper764%01/07/2025 11:38 AM EDTInhaled Oxygen Concentration-- Fxcbzq80.4 kg (179 lb 6.4 oz)01/07/2025 11:38 AM JLSAvacag164.4 cm (5' 5.5 ) 01/07/2025 11:38 AM EDTBody Mass Index29.410 11:38 AM EDT Plan of Treatment DateTypeDepartmentCare Team (Latest Contact Info)Poljbritnwj57/19/2026 11:00 AM ESTOffice Visit [facility] [address] [facility] 110 [place] [address] Frantz Conley MD 112 [facility] 110 [place], [place] [id number] Health MaintenanceDue DateLast DoneCommentsPneumococcal Vaccine: 65+ Years (2 of 2 - PCV)COVID-19 Vaccine ( season)2024 03/01/2021, 05/26/2020, 04/28/2020Influenza Vaccine (#1)5105/13/2023, 12/15/2023, 01/04/2023, Additional history existsMedicare Annual Wellness (AWV) 6010/20/2024, 10/21/2023, 08/22/2022, Additional history exists GigjuweobsdVquigbfordcs46/31/2024, 10/08/2014, 10/08/2014Colorectal Cancer ScreeningDiscontinuedCT ColonographyDiscontinuedFIT-DNADiscontinuedFIT DiscontinuedFOBTDiscontinuedSigmoidoscopyDiscontinued Procedures Procedure NamePriorityDate/TimeAssociated DiagnosisCommentsBLOOD CULTURE 2 Idwsmni4112/25/2024 3:12 AM EDT URINE CULTURE - COIMZkzjvni23/03/2025 2:15 AM EDT BLOOD CULTURE 9Kiiszyf46/03/2025 12:40 AM EDT [facility] CBDSPHPDHbnddev80/15/2025 10:00 AM EDT [facility] SLXIAhwnbdh44/15/2025 10:00 AM EDT [facility] CMP (CMP) (FOR REMOTE [facility] USE)Bynxazn0912/07/2024 10:00 AM EDT ALL CBC WITH AUTO WVUMTrzangi62/15/2025 10:00 AM EDT HM ICKVJKJFRSIOaomzhf48/31/2024 from Last 3 Months or Most Recently Relevant to Health Maintenance Results * BLOOD CULTURE 2 (12/25/2024 3:12 AM EDT)ComponentValueRef RangeTest Method Analysis TimePerformed AtPathologist SignatureBLOOD CULTURE 2 ??Blood Culture 2 NG5D NO GROWTH AT 5 DAYS.^NO GROWTH AT 5 DAYS. TBHSpecimen (Source)Anatomical Location / LateralityCollection Method / Volume Collection TimeReceived Time12/25/2024 3:12 AM EDT1 3:18 AM EDT Narrative CLINISYNC - 12/30/2024 2:58 PM EDT Authorizing ProviderResult TypeResult StatusGeneric External Data ProviderLAB BLOOD ORDERABLESFinal ResultPerforming OrganizationAddressCity/State/ZIP Code Phone Number [facility] * URINE CULTURE - [facility] (12/25/2024 2:15 AM EDT)ComponentValueRef RangeTest MethodAnalysis TimePerformed AtPathologist SignatureURINE CULTURE - FR ??Urine Culture - [facility] No Growth 2 Days TBHURINE CULTURE - FRTBHURINE CULTURE - FRTesting [facility] - [id number] [place] [address] TBHSpecimen (Source)Anatomical Location / LateralityCollection Method / Volume Collection TimeReceived Time12/25/2024 2:15 AM EDT1 1:40 PM EDT Narrative CLINISYNC - 12/28/2024 11:19 AM EDT Authorizing ProviderResult TypeResult StatusGeneric External Data ProviderLAB BLOOD ORDERABLESFinal ResultPerforming OrganizationAddressCity/State/ZIP Code Phone Number [facility] * BLOOD CULTURE 1 (12/25/2024 12:40 AM EDT)ComponentValueRef RangeTest Method Analysis TimePerformed AtPathologist SignatureBLOOD CULTURE 1 ??Blood Culture 1 NG5D NO GROWTH AT 5 DAYS.^NO GROWTH AT 5 DAYS. TBHSpecimen (Source)Anatomical Location / LateralityCollection Method / Volume Collection TimeReceived Time12/25/2024 12:40 AM EDT1 3:02 AM EDT Narrative CLINISYNC - 12/30/2024 2:58 PM EDT Authorizing ProviderResult TypeResult StatusGeneric External Data ProviderLAB BLOOD ORDERABLESFinal ResultPerforming OrganizationAddressCity/State/ZIP Code Phone Number [facility] * (ABNORMAL) [facility] (12/07/2024 10:00 AM EDT)ComponentValueRef RangeTest MethodAnalysis TimePerformed AtPathologist SignatureTBH IRON41.0(L) 65.0 - 175.0 ug/dLTBHTBH TOTAL IRON BINDING NCRKUSRS131.0250.0 - 450.0 ug/dL TBHTBH PERCENT IRON PIXSXTHOQS17.4%TBHSpecimen (Source)Anatomical Location / LateralityCollection Method / VolumeCollection TimeReceived Time12/07/2024 10:00 AM EDT12/07/2024 10:13 AM EDT Narrative CLINISYNC - 12/07/2024 11:21 AM EDT Authorizing ProviderResult TypeResult StatusGeneric External Data Provider CLINISYNCFinal ResultPerforming OrganizationAddressCity/State/ZIP CodePhone Number [facility] * [facility] FERRITIN (12/07/2024 10:00 AM EDT)ComponentValueRef RangeTest Method Analysis TimePerformed AtPathologist TbzfmlmyrDXGZEDSW72.026.0 - 388.0 ng/mL TBHSpecimen (Source)Anatomical Location / LateralityCollection Method / Volume Collection TimeReceived Time12/07/2024 10:00 AM EDT12/07/2024 10:13 AM EDT Narrative CLINISYND - 12/07/2024 1:10 PM EDT Authorizing ProviderResult TypeResult StatusGeneric External Data Provider CLINISYNCFinal ResultPerforming OrganizationAddressCity/State/ZIP CodePhone Number PAUL[facility] * (ABNORMAL) [facility] CMP (CMP) (FOR REMOTE [facility] USE) (12/07/2024 10:00 AM EDT) ComponentValueRef RangeTest MethodAnalysis TimePerformed AtPathologist PztkfvfueMBYYTL851782 - 145 mmol/LTBHPOTASSIUM4.33.5 - 5.1 mmol/LTBHCHLORIDE 110(H)98 - 107 mmol/LTBHCARBON FHQENCK93.921.0 - 32.0 mmol/LTBHANION GAP10.4 OWFTQATQCA586(H)74 - 106 mg/dLTBHBLOOD UREA FRTSGYSI42.0(H)7.0 - 18.0 mg/dLTBH CREATININE0.730.70 - 1.30 mg/dLTBHTBH EGFR-AF [place]>60>=60 mL/min/1.73m 2 TBHTBH EGFR-NON AF [place]>60>=60 mL/min/1.73m 2TBHBUN CREATININE RATIO28.8 TBHCALCIUM8.68.5 - 10.1 mg/dLTBHBILIRUBIN TOTAL0.60.2 - 1.0 mg/dLTBHASPARTATE AMINO PWJUQOPTNXG74(H)15 - 37 U/LTBHALANINE TNIOWJTOVVVEJXAG1437 - 63 U/LTBH ALKALINE JHOJWYYQCYQ461(H)46 - 116 U/LTBHTOTAL PROTEIN6.66.4 - 8.2 g/dLTBH ALBUMIN LEVEL2.8(L)3.4 - 5.0 g/dLTBHGLOBULIN3.8g/dLTBHALBUMIN GLOBULIN RATIO 0.7TBHSpecimen (Source)Anatomical Location / LateralityCollection Method / VolumeCollection TimeReceived Time12/07/2024 10:00 AM EDT12/07/2024 10:13 AM EDT Narrative CLINISYNC - 12/07/2024 10:59 AM EDT Authorizing ProviderResult TypeResult StatusGeneric External Data Provider CLINISYNCFinal ResultPerforming OrganizationAddressCity/State/ZIP CodePhone Number [facility] * (ABNORMAL) ALL CBC WITH AUTO DIFF (12/07/2024 10:00 AM EDT)ComponentValueRef RangeTest MethodAnalysis TimePerformed AtPathologist SignatureTBH WBC3.1(L)4.0 - 11.0 10 3/uLTBHTBH RBC3.43(L)4.70 - 6.10 10 6/uLTBHTBH HGB10.8(L)14.0 - 18.0 g/dLTBHTBH HCT33.2(L)42.0 - 54.0 %TBHTBH MCV96.8(H)80.0 - 94.0 fLTBHTBH MCH 31.525.9 - 34.0 pgTBHTBH MCHC32.529.9 - 35.2 g/dLTBHTBH RDW14.311.0 - 15.0 % TBHTBH PLT83(L)150 - 450 10 3/uLTBHTBH MPV11.09.5 - 13.5 fLTBHNEUTROPHILS PERCENT AUTO69.243.0 - 75.0 %TBHLYMPHOCYTES PERCENT AUTO19.4(L)20.5 - 60.0 % TBHMONOCYTES PERCENT AUTO7.31.7 - 12.0 %TBHTBH EO %3.20.9 - 7.0 %TBHBASOPHILS PERCENT AUTO0.60.2 - 2.0 %TBHIMMATURE GRANULOCYTES PCT AUTO0.30.0 - 0.5 %TBH NEUTROPHILS ABSOLUTE AUTO2.21.4 - 6.5 10 3/uLTBHLYMPHOCYTES ABSOLUTE AUTO0.6 (L)1.2 - 3.8 10 3/uLTBHMONOCYTES ABSOLUTE AUTO0.2(L)0.3 - 0.8 10 3/uLTBHTBH EO #0.10.0 - 0.7 10 3/uLTBHBASOPHILS ABSOLUTE AUTO0.00.0 - 0.1 10 3/uLTBHIMMATURE GRANULOCYTES ABS AUTO0.010.00 - 0.03 10 3/uLTBHSpecimen (Source)Anatomical Location / LateralityCollection Method / VolumeCollection TimeReceived Time 12/07/2024 10:00 AM EDT12/07/2024 10:13 AM EDT Narrative CLINISYNC - 12/07/2024 10:28 AM EDT Authorizing ProviderResult TypeResult StatusGeneric External Data Provider CLINISYNCFinal ResultPerforming OrganizationAddressCity/State/ZIP CodePhone Number CLINISYNC TB[facility] * (ABNORMAL) Hm Colonoscopy (10/23/2023)Anatomical RegionLateralityModalityOther Specimen (Source)Anatomical Location / LateralityCollection Method / Volume Collection TimeReceived Time10/23/2023 Narrative 10/25/2023 9:28 AM EDT Polypectomy Authorizing ProviderResult TypeResult StatusRosanna Bautista PAHEALTH MAINTENANCE Final Result from Last 3 Months or Most Recently Relevant to Health Maintenance Insurance Care Teams Team MemberRelationshipSpecialtyStart DateEnd Date Frantz Conley MD [address] [facility] [address] [place] [address] PCP - GeneralInternal Medicine08/08/22 Frantz Conley MD [address] [facility] [address] [place] [address] PCP - [facility]08/16/22
--- OUTSIDE RECORDS SUMMARY | 2025-01-29 09:10 | XMS_ITS | Patient Health Record ---
Author Organization The [facility] in [place] Address [address] [place] [address] Care Team Providers Care Automotive Brake Technician Name Role Phone Frantz Conley MD Primary Care Provider Unavailab sravan RoelDior cohen Unavailable [phone] Results Component Value Reference Range Notes CBC AUTO DIFF (Not yet revie wed by provider) Interpretation: Performing Lab: Notes/Report: [facility] , White Blood Count 4.9 4.0-11.0 10 3/uL Red Blood Count4.124.70-6.10 10 6/dODrphcjmhul72.014.0-18.0 g/jIIwdjzfzrmt86.0 42.0-54.0 %Mean Corpuscular Gkpple67.180.0-94.0 fLMean Corpuscular Hemoglobin 31.625.9-34.0 pgMean Corpuscular HGB Conc32.529.9-35.2 g/dLRed Cell Distribution Width13.611.0-15.0 %Platelet Cylnh64324-452 10 3/uLMean Platelet Lrohaj31.19.5- 13.5 fLPerforming Lab:see noteML - [facility] LBManual Differential (Not yet reviewed by provider) Interpretation: Performing Lab: Notes/Report: [facility] ,Segmented Neutrophils % Soajjd76.043.0-75.0Band Neutrophils %2.00-5 % Lymphocytes Percent Bpbbmu20.020.5-60.0 %Monocytes Percent Manual8.01.7-12.0 % Eosinophils Percent Manual2.00.9-7.0 %Basophils Percent Manual0.00.2-2.0 % Segmented Neut Absolute Manual3.431.4-6.5 10 3/uLBand Neutrophils Absolute0.1 0.0-0.3 10 3/uLLymphocytes Absolute Manual0.881.20-3.80 10 3/uLMonocytes Absolute Manual0.390.30-0.80 10 3/uLEosinophils Absolute Manual0.090.00-0.70 10 3/uLBasophils Abs Manual0.000.00-0.10 10 3/uLPerforming Lab:see noteML - [facility] LBManual Differential (Not yet reviewed by provider) Interpretation: Performing Lab: Notes/Report: [facility] ,Segmented Neutrophils % Jhcrig97.043.0-75.0Lymphocytes Percent Itgklh14.020.5- 60.0 %Monocytes Percent Txwfuo95.01.7-12.0 %Eosinophils Percent Manual4.00.9-7.0 %Basophils Percent Manual0.00.2-2.0 %Metamyelocytes %1.0Segmented Neut Absolute Manual2.171.4-6.5 10 3/uLLymphocytes Absolute Manual0.561.20-3.80 10 3/uL Monocytes Absolute Manual0.390.30-0.80 10 3/uLEosinophils Absolute Manual0.13 0.00-0.70 10 3/uLBasophils Abs Manual0.000.00-0.10 10 3/uLMetamyelocytes Absolute Manual0.03Performing Lab:see noteML - [facility] LBFERRITIN (Not yet reviewed by provider) Interpretation: Performing Lab: Notes/Report: [facility] ,Tpinbuqp56.026.0-388.0 ng/mLPerforming Lab:see note - [facility] LBVitamin B12 (Not yet reviewed by provider) Interpretation: Performing Lab: Notes/Report: [facility] ,Vitamin [id number] pg/mL [place] Consultant: Charlie Klein PhD, Phone: [phone] [address], [place] [id number] [facility]formed at: - [facility] Performing Lab:see noteLC - [facility] LBPROF 14(COMP METB) (Not yet reviewed by provider) Interpretation: Performing Lab: Notes/Report: [facility] ,Hpkwlb767185-374 mmol/LPotassium4.33.5-5.1 mmol/GDatpgkum50408-650 mmol/LCarbon Vukvcrq83.421.0-32.0 mmol/LAnion Gap12.6Cwfjxlg94142-586 mg/dLBlood Urea Cetxxlyv95.07.0-18.0 mg/dLCreatinine0.830.70-1.30 mg/dLEstimated GFR ( Oumou>60>=60 mL/min/1.73m 2Estimated GFR (Non- Rosie>60>=60 mL/min/1.73m 2BUN Creatinine Ratio20.4Ugilsov9.98.5-10.1 mg/dLBilirubin Total0.70.2-1.0 mg/dL Aspartate Amino Heowwcyofac4577-14 U/LAlanine Djzpychvybqrgjww9419-06 U/L Alkaline Dbhdqfbyvpe42261-660 U/LTotal Protein6.46.4-8.2 g/dLAlbumin Level2.9 3.4-5.0 g/dLGlobulin3.5Albumin Globulin Ratio0.8Performing Lab:see noteML - [facility] LBIRON AND TIBC (Not yet reviewed by provider) Interpretation: Performing Lab: Notes/Report: [facility] ,Iron51.065.0-175.0 ug/dLTotal Iron Binding Ewaqawtl111.0250.0-450.0 ug/dL Percent Iron Rabrhdrurr85.1Performing Lab:see noteML - [facility] LB FERRITIN (Not yet reviewed by provider) Interpretation: Performing Lab: Notes/Report: [facility] ,Vyrkumvn78.026.0-388.0 ng/mLPerforming Lab:see noteML - [facility] LBCBC AUTO DIFF (Not yet reviewed by provider) Interpretation: Performing Lab: Notes/Report: [facility] ,White Blood Count3.34.0-11.0 10 3/uLRed Blood Count4.044.70-6.10 10 6/uL Fxnmtbsxfo27.614.0-18.0 g/yGQujcynrbkr05.542.0-54.0 %Mean Corpuscular Kefddn43.8 80.0-94.0 fLMean Corpuscular Vfihdljwfb66.225.9-34.0 pgMean Corpuscular HGB Conc 33.629.9-35.2 g/dLRed Cell Distribution Width13.811.0-15.0 %Platelet Nnveb23783- 450 10 3/uLMean Platelet Xztrqx99.69.5-13.5 fLPerforming Lab:see noteML - [facility] LBVitamin B12 (Not yet reviewed by provider) Interpretation: Performing Lab: Notes/Report: [facility] ,Vitamin [id number] pg/mL [address], [place] [phone] Performed at: [facility] [place] Consultant: Charlie Klein PhD, Phone: [phone] Performing Lab:see note - [facility] LBVITAMIN D 25 [place] (Not yet reviewed by provider) Interpretation: Performing Lab: Notes/Report: [facility] ,Vitamin D41.7 >100 ng/mL Potential Toxicity <20 ng/mL Vit D deficient 30-100 ng/mL Vit D sufficient 20-<30 ng/mL Vit D insufficient Performing Lab:see note - [facility] LBPROF 14(COMP METB) (Not yet reviewed by provider) Interpretation: Performing Lab: Notes/Report: [facility] ,Mlikyg516802-380 mmol/LPotassium4.33.5-5.1 mmol/KWhdyohtj17812-566 mmol/LCarbon Ceegene78.021.0-32.0 mmol/LAnion Gap10.6Gitdzqc25997-970 mg/dLBlood Urea Bzluxzub28.07.0-18.0 mg/dLCreatinine1.080.70-1.30 mg/dLEstimated GFR ( Oumou>60>=60 mL/min/1.73m 2Estimated GFR (Non- Rosie>60>=60 mL/min/1.73m 2BUN Creatinine Ratio23.2Dormqis2.58.5-10.1 mg/dLBilirubin Total0.70.2-1.0 mg/dL Aspartate Amino Vvwnfctnbac7448-18 U/LAlanine Fuahrpvdqxjgbany8930-34 U/L Alkaline Tcstzxxzwwl55726-450 U/LTotal Protein6.76.4-8.2 g/dLAlbumin Level3.0 3.4-5.0 g/dLGlobulin3.7Albumin Globulin Ratio0.8Performing Lab:see note - [facility] LBIRON AND TIBC (Not yet reviewed by provider) Interpretation: Performing Lab: Notes/Report: [facility] ,Yztg122.065.0-175.0 ug/dLTotal Iron Binding Meeieqyu034.0250.0-450.0 ug/dL Percent Iron Ddvucltzdk51.6Performing Lab:see noteML - [facility] LB FERRITIN (Not yet reviewed by provider) Interpretation: Performing Lab: Notes/Report: [facility] ,Victdpzb88.026.0-388.0 ng/mLPerforming Lab:see note - [facility] LBPROF 14(COMP METB) (Not yet reviewed by provider) Interpretation: Performing Lab: Notes/Report: [facility] ,Mswaqj480671-128 mmol/LPotassium4.33.5-5.1 mmol/ZGnvzvcay48895-780 mmol/LCarbon Jwuzhpb67.921.0-32.0 mmol/LAnion Gap10.3Pgxvgbb38927-880 mg/dLBlood Urea Fbhvpwxh99.07.0-18.0 mg/dLCreatinine0.730.70-1.30 mg/dLEstimated GFR ( Oumou>60>=60 mL/min/1.73m 2Estimated GFR (Non- Rosie>60>=60 mL/min/1.73m 2BUN Creatinine Ratio28.3Xfefxhj2.68.5-10.1 mg/dLBilirubin Total0.60.2-1.0 mg/dL Aspartate Amino Fivuxgkcphl2689-17 U/LAlanine Dczttpsumwsryyvq6274-44 U/L Alkaline Mjlqelllfcs29541-157 U/LTotal Protein6.66.4-8.2 g/dLAlbumin Level2.8 3.4-5.0 g/dLGlobulin3.8Albumin Globulin Ratio0.7Performing Lab:see note - [facility] LBIRON AND TIBC (Not yet reviewed by provider) Interpretation: Performing Lab: Notes/Report: [facility] ,Iron41.065.0-175.0 ug/dLTotal Iron Binding Zldtrwto591.0250.0-450.0 ug/dL Percent Iron Dlgabszlau53.4Performing Lab:see noteML - [facility] LB CBC AUTO DIFF (Not yet reviewed by provider) Interpretation: Performing Lab: Notes/Report: [facility] ,White Blood Count3.14.0-11.0 10 3/uLRed Blood Count3.434.70-6.10 10 6/uL Eaucbargob82.814.0-18.0 g/nBKsuxwpilsa03.242.0-54.0 %Mean Corpuscular Vigszj21.8 80.0-94.0 fLMean Corpuscular Fecxjyghiv44.525.9-34.0 pgMean Corpuscular HGB Conc 32.529.9-35.2 g/dLRed Cell Distribution Width14.311.0-15.0 %Platelet Aavnj79360- 450 10 3/uLMean Platelet Vdkgfv51.09.5-13.5 fLNeutrophils Percent Auto69.243.0- 75.0 %Lymphocytes Percent Auto19.420.5-60.0 %Monocytes Percent Auto7.31.7-12.0 % Eosinophils Percent Auto3.20.9-7.0 %Basophils Percent Auto0.60.2-2.0 %Immature Granulocytes Pct Auto0.30.0-0.5 %Neutrophils Absolute Auto2.21.4-6.5 10 3/uL Lymphocytes Absolute Auto0.61.2-3.8 10 3/uLMonocytes Absolute Auto0.20.3-0.8 10 3/uLEosinophils Absolute Auto0.10.0-0.7 10 3/uLBasophils Absolute Auto0.00.0-0.1 10 3/uLImmature Granulocytes Abs Auto0.010.00-0.03 10 3/uLPerforming Lab:see noteML - [facility] LB Reason For Referral No Information Problems Problem Type SNOMED Code ICD Code Onset Dates Problem Status W/U Status Risk Notes Problem Gastroesophageal ref lux disease (542778675) GERD (gastroesophageal reflux disease) (K21.9) ActiveconfirmedProblemAnemia (448841933)Anemia (D64.9)ActiveconfirmedProblem Thrombocytopenia (095611517)Thrombocytopenia (D69.6)ActiveconfirmedProblem Leukopenia (16829697)Leukopenia (D72.819)ActiveconfirmedProblemCirrhosis - non- alcoholic (913104478)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 [address] [place] [address]/08/2025 Dior Sevilla Plan Of Treatment Pending Test [...] (tTG) IgA 10/17/2023 Next Appt Details Provider Name:DIOR SEVILLA , 02/09/2025 11:00:00 AM, [address] [place], [address], Insurance Providers Payer Name Payer Address Payer Phone Subscriber Number Group Number Insured Name Patient Relationship to Insured Coverage Start Date Coverage End Date [place] [address] [place] [address] [id number] Nagi Matthews - patient is the [facility] [address] [place] [phone], JackSelf - patient is the [id number]
--- OUTSIDE RECORDS SUMMARY | 2025-01-29 09:10 | XMS_ITS | Clinical Summary ---
Author Organization [facility] Address [address] [place] [address] Care Team Providers Care Computer Aided Design Designer Name Role Phone Frantz Conley MD Primary Care Provider Medications MedicationSigDispense QuantityRefillsLast FilledStart DateEnd DateStatus aspirin 81 mg chewable tablet Chew 81 mg.Active fish oil concentrate ([place]-3) 120-180 mg capsule Take 1,000 mg by mouth.Active levothyroxine (Synthroid, Levoxyl) 100 mcg tablet levothyroxine 100 mcg tabletActive tiZANidine (Zanaflex) 4 mg tablet tizanidine 4 mg tabletActive meclizine (Antivert) 25 mg tablet Take 25 mg by mouth if needed in the morning, at noon, and at bedtime for dizziness.Active atorvastatin (Lipitor) 20 mg tablet Indications:Coronary artery disease due to lipid rich plaqueTAKE 1 TABLET DAILY 90 tablet 3Active clopidogrel (Plavix) 75 mg tablet Indications:Coronary artery disease, unspecified vessel or lesion type, unspecified whether angina present, unspecified whether [place] or transplanted heartTAKE 1 TABLET DAILY 90 tablet 4Active Active Problems ProblemNoted DateDiagnosed DateCoronary artery disease involving [place] coronary artery of [place] heart without angina uuqhkelr50/26/2023 Overview (09/17/2022): Stent to Lt CX 2019 Assessment & Plan (09/17/2022 9:42 AM EDT): Coronary artery disease is stable, no concerning symptoms Continue GDMT- ASA, plavix, lipitor continue risk factor modifications- heart healthy diet, regular exercise as tolerated and continue all medications. Benign essential HTN09/17/2022 Assessment & Plan (09/17/2022 9:44 AM EDT): Hypertension is well controlled Continue lifestyle modifications- low sodium diet, heart healthy diet and regular activity. Mixed rzeyazighfengx00/26/2023 Assessment & Plan (09/17/2022 9:41 AM EDT): Continue statin PVC's (premature ventricular contractions)09/17/2022 Assessment & Plan (09/17/2022 9:40 AM EDT): Stable and pt without any symptoms Benign hypertensive heart and CKD, 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), w CHF09/17/2022 Assessment & Plan (09/17/2022 9:43 AM EDT): HTN is well controlled F/U with PCP for monitoring of renal function Dilatation of aorta09/17/2022 Overview (09/17/2022): Mild aortic dilation on echo 2019 Assessment & Plan (09/17/2022 9:41 AM EDT): Mild dilatation on last echo- will repeat echo at 1 year- Oct-Nov Social History Tobacco UseTypesPacks/DayYears UsedDateSmoking Tobacco: NeverSmokeless Tobacco: Never Tobacco Cessation:Counseling Given: Not Answered [place] Safety & EnvironmentAnswerDate RecordedFear of Current or Ex-PartnerNot on file05/16/2023Emotionally AbusedNot on file05/16/2023hysically AbusedNot on 05/16/2023Sexually AbusedNot on 05/16/2023hysically or Sexually Abused Not on 05/16/2023Sex and Gender InformationValueDate RecordedSex Assigned at BirthNot on fileLegal DadMblt7509/21/2021 12:09 AM EDTGender IdentityNot on file Sexual OrientationNot on file Last Filed Vital Signs Vital SignReadingTime TakenCommentsBlood Zdgxrgcu818/7006 9:13 AM EDT Gtrtn0025 9:13 AM EDTTemperature--Respiratory Rate--Oxygen Sivqxuzvaf40% 09/17/2022 9:13 AM EDTInhaled Oxygen Concentration--Ajdpkl52.7 kg (178 lb) 09/17/2022 9:13 AM LVQDvrxnt170.1 cm (5' 5 )10/30/2021 10:30 AM EDTBody Mass Index29.62010/30/2021 10:30 AM EDT Plan of Treatment Health MaintenanceDue DateLast DoneCommentsMedicare Annual Wellness (AWV) 1946Depression Tprdbztbd08/08/1959Adult Uozfmcn0207/30/1968Fall Risk Mvwtgxryf83/08/2012Pneumococcal Vaccine: 50+ Years (2 of 2 - PCV)09/30/2019 09/29/2018COVID-19 Vaccine ( - season), 05/26/2020, 04/28/2020Influenza Vaccine (#1)51, 03/21/2022, 01/06/2021, Additional history existsZoster WikpavuyFieqdhcgh12/26/2020, 04/10/2019HIB VaccinesAged OutNo longer eligible based on patient's age to complete this topic HPV VaccinesAged OutNo longer eligible based on patient's age to complete this topicIPV VaccinesAged OutNo longer eligible based on patient's age to complete this topicMeningococcal B VaccineAged OutNo longer eligible based on patient's age to complete this topicMeningococcal VaccineAged OutNo longer eligible based on patient's age to complete this topicRotavirus VaccinesAged OutNo longer eligible based on patient's age to complete this topic Insurance MemberSubscriberPlan / Payer (Effective 2011-Present)Name:Pankaj Matthews Member ID:[id number] Relation to Subscriber:SelfName:Pankaj Matthews Subscriber ID:[id number] Payer ID:[id number] Group ID:Not on file Type:Medicare Address: [facility] [place] [id number] Care Teams Team MemberRelationshipSpecialtyStart DateEnd Frantz Conley MD PCP - General09/17/22
--- OUTSIDE RECORDS SUMMARY | 2025-01-29 09:10 | XMS_ITS | Clinical Summary ---
Author Organization [facility] Address [address] [place] [address] Phone Care Team Providers Care Elastic Yarn Twister Name Role Phone Frantz Conley MD Primary Care Provider [phone] Allergies No known active allergies Medications MedicationSigDispense QuantityRefillsLast FilledStart DateEnd DateStatus clopidogrel (Plavix) 75 mg tablet Take 1 tablet (75 mg) by mouth once daily.04/05/2023ctive fish oil concentrate ([place]-3) 120-180 mg capsule Take 1 capsule (1,000 mg) by mouth once daily.Active multivitamin with minerals tablet Take 1 tablet by mouth once daily.Active levothyroxine (Synthroid, Levoxyl) 88 mcg tablet Take 1 tablet (88 mcg) by mouth once daily in the morning. Take before meals. Take on an empty stomach.05/14/2023ctive tiZANidine (Zanaflex) 4 mg tablet 1 tablet (4 mg) as needed at bedtime.04/18/2023ctive atorvastatin (Lipitor) 20 mg tablet Take 1 tablet (20 mg) by mouth once daily.02/21/2023ctive omeprazole (PriLOSEC) [address] capsule Take 1 capsule (40 mg) by mouth once daily. Do not crush or chew.Active furosemide (Lasix) 20 mg tablet Indications:Localized edemaTake 1 tablet (20 mg) by mouth once daily. 14 tablet 01/27/2025 5:18 PM EST/ctive potassium chloride CR (Klor-Con) 10 mEq ER tablet Indications:Localized edemaTake 1 tablet (10 mEq) by mouth once daily. Do not crush, chew, or split. 14 tablet 01/27/2025 5:18 PM EST511/ctive omeprazole (PriLOSEC) [address] capsule Take 1 capsule (40 mg) by mouth 2 times a day./Discontinued (Dose adjustment) carvedilol (Coreg) 3.125 mg tablet Take 1 tablet (3.125 mg) by mouth 2 times a day.01/14/2025Discontinued(Therapy completed) aspirin 81 mg EC tablet Take 1 tablet (81 mg) by mouth once daily.01/27/2025Discontinued(Therapy completed) Active Problems ProblemNoted DateDiagnosed DateLocalized edema01/27/2025Sinus node dysfunction 01/14/2025 Assessment & Plan (01/14/2025 4:26 PM EDT): Dec 2024 hospitalization at [facility] due to weakness/ ? Near syncope. Tele: SR with PAC, junctional, pause 1.4 seconds 30 day MARIANN: NO AVN blocking agents 3 recorded episodes during awake hours ranging 3.1 -3.4 seconds ECG in office today: progression bifascicular block. Sinus bradycardia at 47bpm with PAC and junctional. BMI 31.0-31.9,adult09/08/2024 Assessment & Plan (01/14/2025 4:26 PM EDT): Reviewed the merits of healthy lifestyle choices on overall cardiovascular health. BMI 29.0-29.9,adult01/01/2024Former cigarette zpfpva4006/20/2023SHD (arteriosclerotic heart disease)06/20/2023 Assessment & Plan (01/14/2025 4:23 PM EDT): 2019 Cardiac Cath at OR FINAL IMPRESSION: 1. Stable coronary artery disease. [...] activity > 4 METs without concerning symptoms History of coronary artery stent brvuuhuqu10/28/2024scending aorta dilation 06/20/2023Iron deficiency jajods3606/20/2023VC (premature ventricular contraction)06/20/2023 Encounters DateTypeDepartmentCare NdycInurgtqxmtt19/05/2025 11:00 AM ESTOffice Visit [address] [place] [address] Crescencio Marin, DO Localized edema; Sinus node dysfunction (Multi); PVC (premature ventricular contraction); History of coronary artery stent placement; ASHD (arteriosclerotic heart disease); Ascending aorta dilation; Former cigarette smoker; BMI 31.0-31.9,adult; CHF (congestive heart failure), NYHA class I, unspecified failure chronicity, diastolic (Multi)01/27/20251294Bogdhf51/04/2025Telephone [address] [place] [address] Andree Murdock LPN 01/15/2025Telephone [address] [place] [address] Kina Mcduffie RN 01/14/2025 1:30 PM EDTOffice Visit [address] [place] [address] Maddie Barlow, RULES EXAMINER-WHIZZER HAND Sinus node dysfunction (Multi) (Primary Dx); ASHD (arteriosclerotic heart disease); BMI 30.0-30.9,adult01/14/20254967Aeqske83/17/2025Telephone [address] [place] [address] Andree Murdock LPN 01/06/2025Telephone [address] [place] [address] Maria Dolores Carbajal LPN 12/28/2024Telephone [address] [place] [address] Kina Mcduffie RN 11/03/2024Scanned Document [facility] [address] [place] [address] Scanning, Generic Provider from Last 3 Months Immunizations ImmunizationAdministration DatesNext DueFlu vaccine, quadrivalent, high-dose, preservative free, age 65y+ (FLUZONE)03/12/2024,03/21/2022,01/06/2021Influenza, Seasonal, Quadrivalent, Eafqpnhele72/13/2023Pneumococcal polysaccharide vaccine, 23-valent, age 2 years and older (PNEUMOVAX 23)09/29/2018Zoster vaccine, recombinant, adult (SHINGRIX)08/18/2019,04/10/2019 Family History Medical HistoryRelationNameCommentsSkin cancerBrotherLung diseaseFatherLiver diseaseMotherEpilepsySisterRelationNameStatusCommentsBrotherFatherMotherOther DeceasedspouseSister Social History Tobacco UseTypesPacks/DayYears UsedDateSmoking Tobacco: FormerCigarettesQuit: 2004Smokeless Tobacco: FormerQuit: 1980Alcohol UseStandard Drinks/WeekComments Never0 (1 standard drink = 0.6 oz pure alcohol)Sex and Gender InformationValue Date RecordedSex Assigned at YhrcvWqoj74/06/2024 10:10 AM EDTLegal SexMale 06/10/2023 2:05 PM EDTGender ZhzcoulkQrba13/06/2024 10:10 AM EDTSexual YtlbhjqovhyXsxzvhxt11/06/2024 10:10 AM EDT Last Filed Vital Signs Vital SignReadingTime TakenCommentsBlood Yaroxdwp960/6401/27/2025 10:59 AM EST Ykply530301/27/2025 10:59 AM ESTTemperature--Respiratory Rate--Oxygen Saturation-- Inhaled Oxygen Concentration--Eqijtk49.1 kg (192 lb)01/27/2025 10:59 AM EST Tufiba998.1 cm (5' 5 )01/27/2025 10:59 AM ESTBody Mass Index31.9501/27/2025 10:59 AM EST Plan of Treatment DateTypeDepartmentCare Team (Latest Contact Info)Vettmqkigkj60/13/2025 1:15 PM ESTAppointment [facility] [address] [facility] [address] [place] [address] 05/11/2025 1:00 PM ESTOffice Visit [facility] [address] [facility] [address] [place] [address] Maddie Barlow, RULES EXAMINER-WHIZZER HAND [address] [facility] [place] [address] 09/14/2025 2:00 PM EDTOffice Visit [facility] [address] [facility] [address] [place] [address] Crescencio Marin, [address] [facility] [address] [place] [address] Health MaintenanceDue DateLast DoneCommentsCreatinine Level1946Medicare Annual Wellness Visit (AWV)1946Potassium Level1946TSH Level 1946Diabetes Jbzdxjpbg26/08/1965Hepatitis C Bnnxkiisc59/08/1965CKD: Urine Protein Vzanrvzuh99/08/1966Hepatitis A Vaccines (1 of 2 - Risk 2-dose series) 1965DTaP/Tdap/Td Vaccines (1 - Tdap)1968Hepatitis B Vaccines (1 of 3 - Risk 3-dose series)2006Pneumococcal Vaccine (2 of 2 - PCV)09/30/2019 09/29/2018RSV High Risk: (Elderly (60+) or Population) (1 - 1-dose 75+ series)07/30/20211118Uozawmzqsnuqtr92/17/202308/Influenza Vaccine (#1) 512/, 01/04/2023, 03/21/2022, Additional history existsCOVID-19 Vaccine ( season)512/10/2020, 05/26/2020, 1Lipid Panel02/05/362919/07/2023Zoster RhosiwocAznfpcnpq65/26/2020, 04/10/2019HIB VaccinesAged OutNo longer eligible based on patient's age to complete this topic HPV VaccinesAged OutNo longer eligible based on patient's age to complete this topicIPV VaccinesAged OutNo longer eligible based on patient's age to complete this topicMeningococcal VaccineAged OutNo longer eligible based on patient's age to complete this topicRotavirus VaccinesAged OutNo longer eligible based on patient's age to complete this topic Procedures Procedure NamePriorityDate/TimeAssociated DiagnosisCommentsECG 12-LEADRoutine 01/14/2025 1:30 PM EDT Sinus node dysfunction (Multi) from Last 3 Months Results * ECG 12 Lead (01/14/2025 1:30 PM EDT)Specimen (Source)Anatomical Location / LateralityCollection Method / VolumeCollection TimeReceived Time Narrative CPACS - 01/19/2025 1:16 PM EDT Marked sinus bradycardia with junctional pauses, right bundle branch block, bifascicular block, abnormal ECG Authorizing ProviderResult TypeResult StatusMaddie aBrlow RULES EXAMINER-CNPECG ORDERABLES Final ResultPerforming OrganizationAddressCity/State/ZIP CodePhone Number CPACS from Last 3 Months Insurance Care Teams Team MemberRelationshipSpecialtyStart DateEnd Frantz Conley MD [address] [facility] [address] [place] [address] PCP - GeneralInternal Medicine06/20/23
--- OUTSIDE RECORDS SUMMARY | 2025-01-29 09:11 | XMS_ITS | Encounter Summary ---
Author Organization [facility] Address [address] [place] [address] Care Team Providers Care Oil Field Rig Builder Name Role Phone Frantz Conley MD Primary Care Provider [phone] Frantz Conley MD Unavailable [phone] Encounter Details DateTypeDepartmentCare Team (Latest Contact Info)Kfjxipyszue42/05/2025Abstract [facility] [address] [place] [address] Frantz Conley MD [address] [facility] 110 [place], [place] [id number] Social History Tobacco UseTypesPacks/DayYears UsedDateSmoking Tobacco: NeverSmokeless [...] you get together with friends or relatives?Patient /22/2024How often do you attend hinduism or yazidi services?More than 4 times per year04/15/2023o you belong to any clubs or organizations such as hinduism groups, unions, fraCellular Dynamics International or athletic groups, or school groups?Yes04/15/2023How often do you attend meetings of the clubs or organizations you belong to?More than 4 times per year04/15/2023 Are you , , , , never , or living with a partner?Arhnzdj7104/15/2023UDIT-CAnswerDate RecordedQ1: How often do you have a [...] heating?Not hard at all04/15/2023HQ-2AnswerDate RecordedPatient Health Questionnaire-2 Lkbpe138Fin[facility] [place] of Occupational Health - Occupational Stress QuestionnaireAnswerDate RecordedDo you feel stress - tense, restless, nervous, or anxious, or unable to sleep at night because yourmind is troubled all the time - these days?Patient lhhvowlg26/22/2024Exercise Vital Sign AnswerDate RecordedOn average, how many days per week do you engage in moderate to strenuous exercise (like a brisk walk)?Patient ytymwrwm36/22/2024On average, how many minutes do you engage [...] InformationValueDate RecordedSex Assigned at BirthNot on fileLegal WaoJcax7506/06/2022 6:37 PM EDT Gender IdentityNot on fileSexual OrientationNot on filedocumented as of this encounter Plan of Treatment DateTypeDepartmentCare Team (Latest Contact Info)Qwwxbemkfxu65/19/2026 11:00 AM ESTOffice Visit [facility] [place] [facility] [address] [place] [address] Frantz Conley MD [address] [place] [address] documented as of this encounter Visit Diagnoses Not on filedocumented in this encounter Additional Health Concerns AssessmentNoted TimePHQ-9 Depression Total Score: 2:00 PM EDT documented as of this encounter Care Teams Team MemberRelationshipSpecialtyStart DateEnd Date Frantz Conley MD [address] [place] [address] PCP - GeneralInternal Medicine08/08/22 Frantz Conley MD [address] [facility] [address] [place] [address] PCP - ACO 08/16/22documented as of this encounter
--- OUTSIDE RECORDS SUMMARY | 2025-01-29 09:11 | XMS_ITS | Encounter Summary ---
Author Organization [facility] Address [address] [place] [address] Phone Care Team Providers Care Automobile Mechanic Motor Name Role Phone Frantz Conley MD Primary Care Provider [phone] Encounter Details DateTypeDepartmentCare Team (Latest Contact Info)Wqkewcoslpu74/24/2025Telephone [address] [address] Kina Mcduffie RN Social History Tobacco UseTypesPacks/DayYears UsedDateSmoking Tobacco: FormerCigarettesQuit: 2004Smokeless Tobacco: NeverAlcohol UseStandard Drinks/WeekCommentsNever0 (1 standard drink = 0.6 oz pure alcohol)Sex and Gender InformationValueDate RecordedSex Assigned at HtmikUery90/06/2024 10:10 AM EDTLegal OqhRago4006/10/2023 2:05 PM EDTGender CchimblgHqbk20/06/2024 10:10 AM EDTSexual OrientationStraight 06/29/2023 10:10 AM EDTdocumented as of this encounter Miscellaneous Notes * Telephone Encounter - Kina Mcduffie RN - 01/15/2025 8:49 AM EDT Phone call from Rosanna at the device clinic. States she was unaware that the patient was scheduled today for pacemaker implant and prior auth was not completed. Per Maddie Barlow NP. Dr Marin had spoke to Dr Ann and patient was to be scheduled for urgent pacemaker implant 01-15. EP referral was sent to pacemaker clinic and central scheduling as per protocol. Rosanna states she will attempt toexpedite the prior auth. documented in this encounter Plan of Treatment DateTypeDepartmentCare Team (Latest Contact Info)Kpxvlzfydng75/13/2025 1:15 PM ESTAppointment [facility] [address] [facility] [address] [place] [address] 05/11/2025 1:00 PM ESTOffice Visit [facility] [address] [facility] [address] [place] [address] Maddie Barlow, RESIDENTIAL INSURANCE INSPECTOR-DIRECTOR OPERATING ROOM [facility] [facility] [address] [place] [address] 09/14/2025 2:00 PM EDTOffice Visit [facility] [address] [facility] [address] [place] [address] Crescencio Marin, DO [address] [facility] 2, [address] [place] [address] documented as of this encounter Visit Diagnoses Not on filedocumented in this encounter Additional Health Concerns AssessmentNoted TimeA fall risk assessment has been completed for the patient 01/14/2025 1:31 PM EDTdocumented as of this encounter Care Teams Team MemberRelationshipSpecialtyStart DateEnd Date Frantz Conley MD [address] [facility] 110 [place] [address] PCP - GeneralInternal Medicine06/20/23documented as of this encounter
--- OUTSIDE RECORDS SUMMARY | 2025-01-29 09:11 | XMS_ITS | Encounter Summary ---
Author Organization [facility] Address [address] [place] [address] Phone Care Team Providers Care Fiber Worker Name Role Phone Frantz Conley MD Primary Care Provider [phone] Encounter Details DateTypeDepartmentCare Team (Latest Contact Info)Lcxbgviqwun55/04/2025Telephone [place] [address] [address] Andree Murdock LPN Social History Tobacco UseTypesPacks/DayYears UsedDateSmoking Tobacco: FormerCigarettesQuit: 2004Smokeless Tobacco: NeverAlcohol UseStandard Drinks/WeekCommentsNever0 (1 standard drink = 0.6 oz pure alcohol)Sex and Gender InformationValueDate RecordedSex Assigned at PgwauRadg37/06/2024 10:10 AM EDTLegal GmnYytv2206/10/2023 2:05 PM EDTGender YaaddgjvSbnk64/06/2024 10:10 AM EDTSexual OrientationStraight 06/29/2023 10:10 AM EDTdocumented as of this encounter Miscellaneous Notes * Telephone Encounter - Andree Murdock LPN - 01/26/2025 1:35 PM EST Patient contacted and updated. Verbalized understanding. To sec to arrange visit. * Telephone Encounter - Andree Murdock LPN - 01/26/2025 1:35 PM EST ----- Message from Maddie Barlow sent at 01/21/2025 3:39 PM EDT ----- Device interrogation shows approximately 2 hours of mode switching/atrial fibrillation. Please make arrangements for the patient to be seen by Dr. Marin (not me) to discuss anticoagulation, he is extremely frustrated with the entire medical field at this point and is can be difficult to manage over the phone or by the nurse practitioner. ----- Message ----- From: Radha Blackman Sent: 01/21/2025 1:46 PM EDT To: Crescencio Marin DO documented in this encounter Plan of Treatment DateTypeDepartmentCare Team (Latest Contact Info)Mhoqmrmjsji08/13/2025 1:15 PM ESTApp[address] [place] [address] 05/11/2025 1:00 PM ESTOffice Visit [address] [place] [address] Maddie Barlow, MOLD INSPECTOR-AUTOMOTIVE DIAGNOSTIC TECHNICIAN [address] [facility] 2, [facility] 250 [place] [address] 09/14/2025 2:00 PM EDTOffice Visit [address] [place] [address] Crescencio Marin DO [address] [facility] 2, [address] [place] [address] documented as of this encounter Visit Diagnoses Not on filedocumented in this encounter Additional Health Concerns AssessmentNoted TimeA fall risk assessment has been completed for the patient 01/14/2025 1:31 PM EDTdocumented as of this encounter Care Teams Team MemberRelationshipSpecialtyStart DateEnd Date Frantz Conley MD [address] [facility] 110 [place] [address] PCP - GeneralInternal Medicine06/20/23documented as of this encounter
--- OUTSIDE RECORDS SUMMARY | 2025-01-29 09:11 | XMS_ITS | Encounter Summary ---
Author Organization [facility] Address [address] [place] [address] Phone Care Team Providers Care Svp Of Digital Name Role Phone Frantz Conley MD Primary Care Provider [phone] Encounter Details DateTypeDepartmentCare Team (Latest Contact Info)Lrvtzqphlab33/05/2025Travel Social History Tobacco UseTypesPacks/DayYears UsedDateSmoking Tobacco: FormerCigarettesQuit: 2004Smokeless Tobacco: FormerQuit: 1980Alcohol UseStandard Drinks/WeekComments Never0 (1 standard drink = 0.6 oz pure alcohol)Sex and Gender InformationValue Date RecordedSex Assigned at LjyxmXyuo17/06/2024 10:10 AM EDTLegal SexMale 06/10/2023 2:05 PM EDTGender BuwzbkpwJjzp27/06/2024 10:10 AM EDTSexual BqcevliujjxNaepgtgm78/06/2024 10:10 AM EDTdocumented as of this encounter Functional Status * BPAnswerDate of IsgfrshptaYfrfpa319/6401/27/2025 10:59 AM Claudette Rangel LPN * PulseAnswerDate of PihbwfyzroCcrkuj0807/05/2025 10:59 AM Claudette Rangel LPN * Communicable Disease ScreeningQuestionAnswerDate of AssessmentAuthorDo you have any of the following new or worsening symptoms?None of these01/27/2025 10:36 AM Yesika David MA documented as of this encounter Plan of Treatment DateTypeDepartmentCare Team (Latest Contact Info)Tlownqvntsl94/13/2025 1:15 PM ESTAppointment [facility] [address] [place] [address] 05/11/2025 1:00 PM ESTOffice Visit [facility] [address] [facility] [address] [place] [address] Maddie Barlow, LEGAL BILLING SPECIALIST-MUSIC BOX MECHANIC [address] [facility] [address], [address] [place] [address] 09/14/2025 2:00 PM EDTOffice Visit [facility] [address] [facility] [address] [place] [address] Crescencio Marin, 7[address] [facility] 2, [address] [place] [address] documented as of this encounter Visit Diagnoses Not on filedocumented in this encounter Additional Health Concerns AssessmentNoted TimeA fall risk assessment has been completed for the patient 01/27/2025 10:56 AM ESTdocumented as of this encounter Care Teams Team MemberRelationshipSpecialtyStart DateEnd Date Frantz Conley MD [address] [facility] 110 [place] [address] PCP - GeneralInternal Medicine06/20/23documented as of this encounter
--- OUTSIDE RECORDS SUMMARY | 2025-01-29 09:11 | XMS_ITS | Clinical Summary ---
Author Organization [facility] Address [address] [facility] [place] [address] Care Team Providers Care Stars Analytical Lead Name Role Phone Frantz Conley MD Primary Care Provider [phone] Allergies No known active allergies Medications MedicationSigDispense QuantityRefillsLast FilledStart DateEnd DateStatus tiZANidine (ZANAFLEX) 4 MG tablet Take 4 mg by mouth every 6 hours as neededActive atorvastatin (LIPITOR) 20 MG tablet Take 20 mg by mouth dailyActive levothyroxine (SYNTHROID) 100 MCG tablet Take 100 mcg by mouth DailyActive aspirin 81 MG chewable tablet Take 81 mg by mouth dailyActive Multiple Vitamins-Minerals (THERAPEUTIC MULTIVITAMIN-MINERALS) tablet Take 1 tablet by mouth dailyActive Hegins-3 Fatty Acids (FISH OIL) 1000 MG CAPS Take 1,000 mg by mouth 3 times dailyActive omeprazole (PRILOSEC) 40 MG delayed release capsule Take 40 mg by mouth dailyActive clopidogrel (PLAVIX) 75 MG tablet Take 75 mg by mouth dailyActive Active Problems ProblemNoted DateDiagnosed DateSAH (subarachnoid hemorrhage)08/16/2021 Subarachnoid hemorrhage following injury, no loss of consciousnessSubdural hematoma Social History Tobacco UseTypesPacks/DayYears UsedDateSmoking Tobacco: NeverSmokeless Tobacco: NeverAlcohol UseStandard Drinks/WeekCommentsNever0 (1 standard drink = 0.6 oz pure alcohol)Sex and Gender InformationValueDate RecordedSex Assigned at Not on fileLegal YatLjur4608/16/2021 4:23 PM EDTGender IdentityNot on fileSexual OrientationNot on file Last Filed Vital Signs Vital SignReadingTime TakenCommentsBlood Zxoxzatg738/8005 10:00 AM EDT Bfrja462808/17/2021 11:15 AM QGVNnnkafkpcgs07.7 ??C (98 ??F)08/17/2021 12:00 PM EDTRespiratory Aglc387308/17/2021 11:15 AM EDTOxygen Bmdfflosxt62%08/17/2021 11:15 AM EDTInhaled Oxygen Concentration--Nsqylp38.9 kg (180 lb 9.6 oz)08/16/2021 9:48 PM GJROfbixf419.1 cm (5' 5 )08/16/2021 9:48 PM EDTBody Mass Index30.05008/16/2021 9:48 PM EDT Plan of Treatment Not on file Insurance Advance Directives * Full Code (Latest Code Status on File) Date ActivatedDate InactivatedComments08/16/2021 8:15 PM08/17/2021 4:39 PM Care Teams Team MemberRelationshipSpecialtyStart DateEnd Date Frantz Conley MD [address] [place] [address] PCP - GeneralInternal Medicine08/16/21
--- OUTSIDE RECORDS SUMMARY | 2025-01-29 09:11 | XMS_ITS | Encounter Summary ---
Author Organization [facility] Address [address] [facility] [place] [address] Care Team Providers Care Dishwasher Name Role Phone Frantz Conley MD Primary Care Provider [phone] Frantz Conley MD Unavailable [phone] Encounter Details DateTypeDepartmentCare Team (Latest Contact Info)Gtrkalopjlv35/28/2025Patient Outreach [facility] [address] [place] [address] Jazmin Toribio, KIER BOILER [address], [place] [address] Social History Tobacco UseTypesPacks/DayYears UsedDateSmoking Tobacco: NeverSmokeless [...] or relatives?Patient /22/2024How often do you attend congregation or jain services?More than 4 times per year04/15/2023o you belong to any clubs or organizations such as congregation groups, unions, fraStarfish Retention Solutions or athletic groups, or school groups?Yes04/15/2023How often do you attend meetings of the clubs or organizations you belong to?More than 4 times per year04/15/2023 Are you , , , , never , or living with a partner?Znblxyj8204/15/2023UDIT-CAnswerDate RecordedQ1: How often do you have a [...] heating?Not hard at all04/15/2023HQ-2AnswerDate RecordedPatient Health Questionnaire-2 Yxoch921Finmount[facility] west [facility] [place] of Occupational Health - Occupational Stress QuestionnaireAnswerDate RecordedDo you feel stress - tense, restless, nervous, or anxious, or unable to sleep at night because yourmind is troubled all the time - these days?Patient /22/2024Exercise Vital Sign AnswerDate RecordedOn average, how many days per week do you engage in moderate to strenuous exercise (like a brisk walk)?Patient gzmpfkoq29/22/2024On average, how many minutes do you engage [...] InformationValueDate RecordedSex Assigned at BirthNot on fileLegal MihYkpr5506/06/2022 6:37 PM EDT Gender IdentityNot on fileSexual OrientationNot on filedocumented as of this encounter Progress Notes * BLAYNE Pham - 01/19/2025 10:13 AM EDT <January 19, 2025, 10:13 - BLAYNE Pham> Pt identified by [facility] survey as needing social work outreach. Spoke to pt, he believes he marked wrong answer on survey and denies needs at this time. documented in this encounter Plan of Treatment DateTypeDepartmentCare Team (Latest Contact Info)Djpuaobwnph29/19/2026 11:00 AM ESTOffice Visit [facility] [place] [facility] [address] [place] [address] Frantz Conley MD [address] [place] [address] documented as of this encounter Visit Diagnoses Diagnosis Hypotension, unspecified hypotension type- Primary Coronary artery disease involving [place] coronary artery of [place] heart without angina pectoris documented in this encounter Additional Health Concerns AssessmentNoted TimePHQ-9 Depression Total Score: 2:00 PM EDT documented as of this encounter Care Teams Team MemberRelationshipSpecialtyStart DateEnd Date Frantz Conley MD [address] [place] [address] PCP - GeneralInternal Medicine08/08/22 Frantz Conley MD [address] [place] [address] PCP - ACO Reach08/16/22documented as of this encounter
--- OUTSIDE RECORDS SUMMARY | 2025-01-29 09:14 | XMS_ITS | CCD ---
Author Organization [facility] CliniSynv Care Team Providers Care Office Runner Name Role Phone Zahler, Hardeep Unavailable Unavailable Zahler, Hardeep Unavailable Unavailable Yuridiahler, Hardeep Unavailable Unavailable FRANTZ CONLEY Unavailable Unavailable Zahler, Hardeep Unavailable Unavailable Zahler, Hardeep Unavailable Unavailable Rosie Hardeep Unavailable Unavailable FRANTZ CONLEY Unavailable Unavailable INDIA ANDREA Admitting Unavailable SRINIAVS POLO Attending Unavailable FRANTZ TENORIO Referring Unavailable [...] Care Unavailable RICHMOND, DR ROCHA Admitting Unavailable [place], DR STEPHEN Rasheed Consulting Unavailable RICHMOND, DR ROCHA Attending Unavailable HERMES MITCHELL Consulting Unavailable KEILY RENTERIA Attending Unavailable Yadira, DR Ordaz Consulting Unavailable DR FRANTZ CONLEY Primary Care Unavailable KEILY RENTERIA Admitting Unavailable HERMES MITCHELL Consulting Unavailable KEILY RENTERIA Consulting Unavailable SUKH CROFT Consulting Unavailable DR FRANTZ CONLEY Primary Care Unavailable DR FRANTZ CONLEY Admitting Unavailable JARVIS, DR LANDRY Attending Unavailable JARVIS, DR LANDRY Consulting Unavailable MICK BRANCH Attending Unavailable MICK BRANCH Consulting Unavailable JARVIS, DR LANDRY Primary Care Unavailable MICK BRANCH Admitting Unavailable MOE, DR CAVRAJAL Admitting Unavailable ELLEANN, DR CARVAJAL Attending Unavailable DR KARL MENON Consulting Unavailable DR FRANTZ CONLEY Primary Care Unavailable LIBBY Conley Primary Care Provider MD Mick Branch Attending Provider [phone] LIBBY Conley Attending Provider LIBBY Conley Primary Care Provider [phone] LIBBY Conley Referring Provider MD Zoila Castorena Attending Provider MD Mick Branch Attending Provider MD Jose Manning Attending Provider Frantz Conley MD Primary Care Provider Frantz Conley MD Unavailable [phone] MD Jose Manning Attending Provider Jarvis, LIBBY Landry Primary Care Provider [phone] Jarvis, LIBBY Landry Attending Provider Frantz Conley MD Primary Care Provider Jarvis, LIBBY Landry Primary Care Provider MD Mick Branch Attending Provider Jarvis IIFrantz Primary Care Provider Mick Branch MD Attending Provider Jarvis IIFrantz Primary Care Provider Mick Branch MD Attending Provider Rc Hernandez MD Attending Provider FRANTZ CONLEY Attending Unavailable ROSANNA DALY Attending Unavailable FRANTZ CONLEY Attending Unavailable SALIMA GAR Attending Unavailable Frantz Conley MD Primary Care Provider Frantz Conley Primary Care Unavailable Mick Branch Admitting Unavailable Mick Branch Attending Unavailable Frantz Conley Primary Care Unavailable Mick Branch Attending Unavailable Mick Branch Admitting Unavailable NON STAFF Primary Care Unavailable Dick Soufian Attending Unavailable Maria G De La P[place] Consulting Unavailable Margaret Jenningsfitory Admitting Unavailable Gearheart, Sofia Consulting Unavailable Flora Sevilla Consulting Unavailable Jayashree Shah Consulting Unavailable Angela Hirsch Consulting Unavailable Michela Sweet Consulting Unavailable Rc Hernandez Consulting Unavailable Gabriele Watson Consulting Unavailable Michael Casey Consulting Unavailable Naveed Nice Consulting UnavailMayco Redd Consulting Unavailable Eleni Torres Consulting Unavailable Sukh Berkowitz Consulting Unavailable Douglas Rodrigues Consulting Unavailable Sri Estrada Consulting UnavailAreli Kasper Consulting Unavailable Dee Anthony Consulting Unavailable Karen Garcia Consulting Unavailable Sukh Curry Consulting Unavailable Denise Rodriguez Consulting Unavailable Sekou Barajas Consulting Unavailable Zoila Betts Consulting Unavailable Kt Morales Consulting Unavailable John Cleveland Consulting Unavailab Brent Licona Consulting Unavailable Montserrat Merino Consulting Unavailable Lio Gutierrez Consulting Unavailable Marcelle Mario Consulting Unavailable Lucian Pickens Consulting Unavailable DaromaKrunal isabel Consulting Unavailable Dayana Barlow Consulting Unavailable Catherine Farr Consulting Unavailable Parvez Ritchie Consulting Unavailable Frantz Smallwood Consulting Unavailable Erum Gifford Consulting Unavailable Henry Cain Consulting Unavailable Krystina Park Consulting Unava deboraable Shabana Sherwood Consulting Unavailable Az Van Consulting Unavailable Kartik Webb Consulting Unavailable Douglas Roper Consulting Unavailable Rocky Browning Consulting Unavailable Cait Roe Consulting Unavailable Ethan Eagle Consulting Unavaila Lee Ann Ann Consulting Unavailable Juliane Thomson Consulting Unavailable Rc Hernandez Attending Unavailable Rc Hernandez Admitting Unavailable Mick Branch Attending Unavailable Mick Branch Admitting Unavailable Frantz Conley Primary Care Unavailable BUCK BARLOW Attending Unavailable FRANTZ CONLEY Primary Care Unavailable CRESCENCIO MARIN Attending Unavailable FRANTZ CONLEY Primary Care Unavailable CRESCENCIO MARIN Attending Unavailable CRESCENCIO MARIN Referring Unavailable FRANTZ CONLEY Primary Care Unavailable Medications Current Medications MedicationDrug Class(es)DatesSig (Normalized)Sig (Original)atorvastatin 20 mg oral tablet (20 sources)HMG-CoA Reductase InhibitorStart: 04-26-2021 End: 83-23-0916fusu 1 tablet by mouth once dailyatorvastatin (Lipitor) 20 mg tablet Take 1 tablet (20 mg) by mouth once daily. 02/21/2023 Activebenzonatate 200 mg oral capsule (1 source)Non-narcotic AntitussiveStart: 01-07-2025 End: 46-47-5075yedg 1 capsule by mouth three times daily as needed for cough benzonatate (Tessalon) 200 MG capsule Indications: Cough, unspecified type Take 1 capsule (200 mg) by mouth 3 (three) times a day as needed for cough for up to 10 days Do not crush or chew. 30 capsule 01/07/2025 01/17/2025 Activeclopidogrel 75 mg oral tablet (20 sources)P2Y12 Platelet InhibitorStart: 11-12-8617klni 1 tablet by mouth once dailyclopidogrel (Plavix) 75 mg tablet Take 1 tablet (75 mg) by mouth once daily. 04/05/2023 ActiveStart: 08-22-2021 End: 60-68-5087hjtu 1 tablet by mouth once dailyclopidogrel (PLAVIX) 75 MG tablet Take 1 tablet by mouth daily 30 tablet 3 08/22/2021 08/17/2021 Dis continued (REORDER)Start: 23-74-7603qbym 1 tablet by mouth once dailyclopidogrel (PLAVIX) 75 MG tablet Take 1 tablet by mouth daily 30 tablet 3 08/22/2021 Active Start: 04-26-2021 End: 02-94-2803txpj 1 tablet by mouth once daily in the morningdocosahexaenoic acid 120 mg / eicosapentaenoic acid 180 mg oral capsule (6 sources)take 1 capsule by mouth once dailyfish oil concentrate (Rheems-3) 120- 180 mg capsule Take 1 capsule (1,000 mg) by mouth once daily. Activetake 1 capsule by mouth three times dailyOmega-3 Fatty Acids (FISH OIL) 1000 MG CAPS Take 1,000 mg by mouth 3 times daily 0 Activeferrous gluconate 240 mg oral tablet (6 sources)take 1 tablet by mouth once dailyFerrous Gluconate (iron) 240 (27 Fe) MG tablet Take 1 tablet by mouth Daily ActiveFish Oils (3 sources)Fish Oil 1000 MG DAILY Activefurosemide 20 mg oral tablet (1 source)Loop DiureticStart: 01-27-2025 End: 04-60-2166qapi 1 tablet by mouth once dailyfurosemide (Lasix) 20 mg tablet Indications: Localized edema Take 1 tablet (20 mg) by mouth once daily. 14 tablet 01/27/2025 01/27/2026 Activelevothyroxine sodium 0.088 mg oral tablet (20 sources)l-ThyroxineStart: 02-34-6502zbql 1 tablet by mouth once daily before mealtimelevothyroxine (Synthroid, Levoxyl) 88 mcg tablet Take 1 tablet (88 mcg) by mouth once daily in the morning. Take before meals. Take on an empty stomach. 05/14/2023 ActiveStart: 04-26-2021 End: 53-08-8380gojm 1 tablet by mouth once daily in the morningLevothyroxine 100 mcg tablet Discontinued 100 MCG PO Every morning April 26, 2021 1:00am October 09, 2023 8:44amtake 1 tablet by mouth once daily in the morningSynthroid 100 MCG 1 tablet in the morning on an empty stomach Orally Once a day ActiveMultiple Vitamins-Minerals (ONE DAILY ADULTS 50+ PO) (20 sources)take 1 tablet by mouth once dailyMultiple Vitamins-Minerals (ONE DAILY ADULTS 50+ PO) Take 1 tablet by mouth 1 (one) time each day. Activetake 1 tablet by mouth once dailyMultiple Vitamins-Minerals (ONE DAILY ADULTS 50+ PO) Take 1 tablet by mouth 1 (one) time each day. 0 ActiveMultiple Vitamins-Minerals (THERAPEUTIC MULTIVITAMIN-MINERALS) tablet (1 source)take 1 tablet by mouth once dailyMultiple Vitamins-Minerals (THERAPEUTIC MULTIVITAMIN-MINERALS) tablet Take 1 tablet by mouth daily 0 Active Multivitamin preparation (12 sources)Start: 57-78-4595xfap 1 tablet by mouth once daily in the morning Multivitamin Active 1 TAB PO Every morning April 26, 2021 12:00amStart: 40-63-9352rpyo 1 tablet by mouth once daily in the morningMultivitamin Active 1 TAB PO Every morning April 26, 2021 1:00amtake 1 tablet by mouth once daily Multivitamin - 1 tablet Orally Once a day ActiveMultivitamin Tablet (5 sources)Start: 19-53-7684yjxa 1 tablet by mouth once daily in the morning Multivitamin Tablet Active 1 TAB PO Every morning April 26, 2021 1:00am Complies with drug therapyStart: 65-99-2657flil 1 tablet by mouth once daily in the morningStart: 29-80-8167pwdw 1 tablet by mouth once daily in the morning Multivitamin Tablet Active 1 TAB PO Every morning April 26, 2021 12:00am multivitamin with minerals tablet (5 sources)take 1 tablet by mouth once dailymultivitamin with minerals tablet Take 1 tablet by mouth once daily. Activetake 1 tablet by mouth once daily multivitamin with minerals tablet Take 1 tablet by mouth once daily. 0 Active Rheems 5-Gul-Svi-Fish Oil (Fish Oil) 1,000 mg (120 mg-180 mg) Capsule (14 sources)Start: 73-50-2042xsyd 1 capsule by mouth three times dailyOmega 6-Clo-Fpp-Fish Oil (Fish Oil) 1,000 mg (120 mg-180 mg) Capsule Active 1 CAP PO Three times daily April 26, 2021 1:00am Complies with drug therapyStart: 59-56-9562wsak 1 capsule by mouth three times dailyStart: 71-54-6470yvxi 1 capsule by mouth three times dailyOmega 9-Nex-Utm-Fish Oil (Fish Oil) 1,000 mg (120 mg-180 mg) Capsule Active 1 CAP PO Three times daily April 26, 2021 12:00amStart: 18-41-6172zivp 1 capsule by mouth three times dailyOmega 8-Kwt-Fzu-Fish Oil (Fish Oil) 1,000 mg (120 mg-180 mg) Capsule Active 1 CAP PO Three times daily April 26, 2021 1:00amOmega-3 Fatty Acids (Fish Oil) 1000 MG capsule delayed-release (20 sources)Start: 18-72-9359nbpo 1 capsule by mouth once dailyOmega-3 Fatty Acids (Fish Oil) 1000 MG capsule delayed-release Take 1 capsule by mouth 1 (one) timeeach day. 09/13/2014 ActiveStart: 89-89-3763lecw 1 capsule by mouth once dailyOmega-3 Fatty Acids (Fish Oil) 1000 MG capsule delayed-release Take 1 capsule by mouth 1 (one) timeeach day. 0 09/13/2014 Activeomeprazole 40 mg delayed release oral capsule (20 sources)Proton Pump InhibitorStart: 12-05-2023 End: 22-99-8091ddmvmbypag (PriLOSEC) [address] capsule Indications: Gastroesophageal reflux disease without esophagitis TAKE 1 CAPSULE IN THE MORNING AND 1 CAPSULE IN THE EVENING. TAKE BEFORE MEALS. 180 capsule 3 02/2024 ActiveStart: 04-26-2021 End: 48-22-8398dqsq 1 capsule by mouth twice dailyomeprazole (PriLOSEC) [address] capsule Take 1 capsule (40 mg) by mouth 2 times a day. 01/09/2023 01/14/2025 Discontinued (Dose adjustment)ondansetron (ZOFRAN-ODT) disintegrating tablet 4 mg (1 source)Start: 99-96-7186fmtzhuyczzn (ZOFRAN-ODT) disintegrating tablet 4 mg polyethylene glycol 3350 89125 mg powder for oral solution (2 sources)Osmotic LaxativeStart: 01-07-2025 End: 70-21-1217jpxh 17 g by mouth every twenty-four hours as needed for constipation and constipationpolyethylene glycol, PEG, 3350 (Miralax) 17 g packet Indications: Constipation, unspecified constipation type Take 17 g by mouth Daily as needed (constipation) 30 packet 01/07/2025 02/06/2025 Active Start: g, Oral, DAILY, First dose on Sat08/16/21 at 2030, Until Discontinuedpotassium chloride 10 meq extended release oral tablet (1 source)Start: 01-27-2025 End: 83-22-5319qlku 1 tablet by mouth once dailypotassium chloride CR (Klor-Con) 10 mEq ER tablet Indications: Localized edema Take 1 tablet (10 mEq) by mouth once daily. Do not crush, chew, or split. 14 tablet 01/27/2025 01/27/2026 Active tiZANidine 4 mg oral tablet (20 sources)Central alpha-2 Adrenergic AgonistStart: 78-19-8253xvSIBvhtnm (Zanaflex) 4 mg tablet 1 tablet (4 mg) as needed at bedtime. 04/18/2023 Active Start: 40-46-3252ypwf 1 tablet by mouth twice daily as neededStart: 04-26-2021 End: 39-10-6984said 1 tablet by mouth once daily at bedtimeTizanidine 4 mg tablet Discontinued 4 MG PO Daily at bedtime April 26, 2021 1:00am August 08, 2022 1:55pmtake 1 tablet by mouth twice daily as neededtiZANidine HCl 4 MG 1 tablet as needed Orally bid prn Activetake 1 tablet by mouth every six hours as neededtiZANidine (ZANAFLEX) 4 MG tablet Take 4 mg by mouth every 6 hours as needed 0 Active Completed/Discontinued Medications MedicationDrug Class(es)DatesSig (Normalized)Sig (Original)acetaminophen 500 mg oral tablet (1 source)Start: 92-10-6854sfsr 1 dose by mouth three times daily1,000 mg, Oral, EVERY 8 HOURS SCHEDULED (3 times per day), First dose on Sat08/16/21 at 2200, UntilDiscontinued Maximum dose of acetaminophen is 4000 mg from all sources in 24 hours.acetaminophen 325 mg / HYDROcodone bitartrate 5 mg oral tablet (14 sources)Opioid AgonistStart: 05-10-2021 End: 53-58-5041trnj 1 tablet by mouth every six hours as needed for pain Hydrocodone-Acetaminophen 5-325 mg tablet Discontinued 1 TAB PO Q6H as needed for pain 30 May 10, 2021 September 19, 2021 11:42amaspirin 81 mg delayed release oral tablet (20 sources)Platelet Aggregation Inhibitor, Nonsteroidal Anti-inflammatory Drug Start: 04-26-2021 End: 77-79-2953mgej 1 tablet by mouth once daily in the morningAspirin 81 mg Tablet,Delayed Release (Dr/Ec) Discontinued 81 MG PO Every morning April 2621:00am September 17, 2023 11:09amtake 1 tablet by mouth once dailyaspirin 81 MG chewable tablet Take 81 mg by mouth daily 0 Activecarvedilol 3.125 mg oral tablet (20 sources)alpha-Adrenergic Yadira, beta-Adrenergic BlockerStart: 10-23-2023 End: 22-48-7265iern 1 tablet by mouth twice daily at mealtimeCarvedilol 3.125 mg tablet Discontinued 3.125 MG PO Twice daily 60 30 April 30, 2024 2:13pm 2024 1:37pm must administer with a meal/foodferrous sulfate 325 mg oral tablet (2 sources) End: 40-61-7490cwkf 1 tablet by mouth at mealtimeferrous sulfate 325 (65 Fe) MG tablet Take 325 mg by mouth in the morning. Take with meals. 10/20/2024 Discontinued (Other)meclizine hydrochloride 25 mg oral tablet (10 sources)AntiemeticStart: 09-17-2023 End: 58-35-7908fezs 1 tablet by mouth once dailyMeclizine 25 mg tablet Discontinued 25 MG PO Daily September 17, 2023 12:00am October 09, 2023 8:46amtake 1 tablet by mouth every twenty-four hoursMeclizine HCl 25 MG 1 tablet Orally once a day Activepantoprazole 40 mg delayed release oral tablet (1 source)Proton Pump InhibitorStart: 09-88-9436xomo 40 mg by mouth once daily before trhygyldn68 mg, Oral, DAILY BEFORE BREAKFAST, First dose on Sat08/17/21 at 0730, Until Discontinued Do not crush or break. Substituted for Omeprazole (PRILOSEC).1000 ml sodium chloride 9 mg/ml injection (4 sources)Start: 08-16-2021 End: .9 % sodium chloride infusionStart: 26-88-4141ZynnzDSRzgg, at 5- 250 mL/hr, PRN, if patient receiving piggyback infusions and maintenance fluids are not ordered OR KVO fluids to protect IV site / prevent frequent line interruptions/ long duration, Starting on Sat08/16/21 at 2014 For piggyback infusion, administer at same rate as piggyback for atotal of 25 mL. Enter 25 mL into dose field and piggyback rate into rate field of order. If piggyback is infusing at a rate less than 100 mL/hr, enter 25 mL into dose field and 100 mL/hr into rate field of order. For KVO fluids, enter rate of 20 mL/hr or less into rate field of order.Start: 50-33-1699gewq 1 dose intravenously twice daily5-40 mL, IntraVENous, EVERY 12 HOURS SCHEDULED (2 [...] mL Midline or Central Line = 20 mL/lumenStart: 33-41-5604mast 5-40 mL intravenously once as needed5-40 mL, IntraVENous, PRN, Starting on Sat08/16/21 at 2015, Until Discontinued, Line Care, After every IV line use For Line Patency: Peripheral IV = 5 mL; Midline or Central Line = 10 mL/lumen.&nb sp; If following IV push medication, administer flush [...] mL Midline or Central Line = 20 mL/lumentherapeutic multivitamin-minerals 1 tablet (1 source)Start: 53-54-2814wvso 1 tablet by mouth once daily1 tablet, Oral, DAILY, First dose on Sat08/16/21 at 2030, Until Discontinued Problems Active Problems Problem ClassificationProblemDateDocumented DateEpisodic/Chronic Administrative/social admission (2 sources)Patient encounter status; Translations: [Other specified counseling] 25-88-1734BcanpslfGtcxnuf disorders (20 sources)Anxiety; Translations: [Other specified anxiety disorders]Onset: 891289-59-6595FlguxulQtklff; peripheral; and visceral artery aneurysms (20 sources)Thoracic aortic aneurysm, without rupture; Translations: [Dilatation of aorta]Onset: 33-27-9277AzwblbwIjjydiu dysrhythmias (20 sources)Multiple premature ventricular complexes; Translations: [Ventricular premature depolarization]Onset: 727002-48-6268KhwcuisRhmpwkbrhff and hemorrhagic disorders (1 source)Thrombocytopenia, unspecified; Translations: [Thrombocytopenia, unspecified]Onset: 45-40-4304GnfkivmHuhknbnkdj disorders (2 sources)Sinus node xitzhdfztbk61-10-8345WrwollyBqzkdwosfq heart failure; nonhypertensive (3 sources)Congestive heart failure; Translations: [Unspecified diastolic (congestive) heart failure]Onset: 436054-38-8312ObtyqpbPxjlvngd atherosclerosis and other heart disease (20 sources)Old myocardial infarction; Translations: [Coronary arteriosclerosis] Onset: 209078-92-1674TsxrjvuXqekftxo atherosclerosis and other heart disease (3 sources)Presence of coronary angioplasty implant and graft; Translations: [PRESENCE COR ANGPLSTY IMPLANT AND GRAFT]Onset: 54-08-4009YfztpqudStgxshlzda and other anemia (20 sources)Acquired pancytopenia; Translations: [Other pancytopenia]Onset: 854404-55-2975AoqziemIuasnssobs and other anemia (4 sources)Other pancytopenia; Translations: [Other pancytopenia]09-28-2022 ChronicDeficiency and other anemia (2 sources)Iron deficiency anemia, unspecified; Translations: [Iron deficiency anemia, unspecified]20-57-3817BmiedjrdUwuwunpoj of lipid metabolism (20 sources)Hypertriglyceridemia; 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]Onset: 351577-40-6598HirfsdzHkdnmyhdujioxf and diverticulitis (20 sources)Diverticulosis of colon; Translations: [Diverticulosis of large intestine without perforation or abscess without bleeding]Onset: 08-13-2022 05-95-9847RptcoolF Codes: Struck by; against (1 source)Striking against or struck by other objects, initial encounter; Translations: [STRIKING AGNST/STRUCK OTH OBJ INIT]Onset: 99-77-1308Zhlvydpy Esophageal disorders (20 sources)Gastroesophageal reflux disease; Translations: [Gastro-esophageal reflux disease without esophagitis]Onset: 361383-93-9774QztobhcNxivdqbct hypertension (20 sources)Benign essential hypertension; Translations: [Essential (primary) hypertension]Onset: 100705-08-9022IvlnmjfIrocgbbql (20 sources)Nonalcoholic steatohepatitis; Translations: [Nonalcoholic steatohepatitis (PLASCENCIA)]Onset: 09-13-2021 Resolved: 66-18-1064IcilajuOhdtkybkbchd with complications and secondary hypertension (20 sources)Hypertensive heart AND chronic kidney disease with congestive heart failure; Translations: [Hypertensive heart and chronic kidney disease with heart failure and stage 1 through stage 4 chronic kidneydisease, or unspecified chronic kidney disease]Onset: 403049-31-7274QrodykjWztqlsonentnt and screening for infectious disease (2 sources)Needs influenza immunization; Translations: [Encounter for immunization]73-56-5302YtwrbxvmUuqmsaatazsl injury (5 sources)Subarachnoid hemorrhage due to traumatic injury; Translations: [Traumatic subarachnoid hemorrhage without loss of consciousness, initial encounter]Onset: 67-57-0312WaeyynifJfslqrnuxsype mental health disorders (20 sources)Chronic insomnia; Translations: [Psychophysiologic insomnia]Onset: 724995-11-2252DzuttlrEsrxrldsbws deficiencies (20 sources)Vitamin D deficiency; Translations: [Vitamin D deficiency, unspecified]Onset: 461288-71-9356UttpdsvMdvm wounds of head; neck; and trunk (3 sources)Facial laceration ; Translations: [Laceration without foreign body of other part of head, initial encounter]Onset: 83-32-6119DelfgspmZqjbp aftercare (1 source)senior living (current) use of aspirin; Translations: [REORDERING CLERK CURRENT USE OF ASPIRIN]Onset: 10-77-5024AkbexujdOodqz aftercare (1 source)senior living (current) use of antithrombotics/antiplatelets; Translations: [REORDERING CLERK ANTITHROMBOT/ANTIPLATLETS]Onset: 63-16-0467Xnkjmvjp Other aftercare (1 source)Post-discharge follow-up; Translations: [Encounter for follow-up examination after completed treatment for conditions other than malignant neoplasm]61-63-2749MjohamqlHjcax and ill-defined heart disease (8 sources)Diastolic dysfunction; Translations: [Other ill-defined heart diseases]Onset: 801908-13-9734FpoqumbXvooz disorders of stomach and duodenum (6 sources)Vascular ectasia of gastric antrum; Translations: [Angiodysplasia of stomach and duodenum without bleeding]09-91-8389ZgainljpOkfqt disorders of stomach and duodenum (3 sources)Angiodysplasia of stomach and duodenum without bleeding; Translations: [Angiodysplasia of stomach and duodenum without mention of hemorrhage]Onset: 653172-10-6277ZcoohqibXeupy gastrointestinal disorders (1 source)Constipation; Translations: [Constipation, unspecified]01-07-2025 EpisodicOther injuries and conditions due to external causes (3 sources)Unspecified injury of head, initial encounter; Translations: [UNSPECIFIED INJURY HEAD INITIAL ENC]Onset: 68-31-9228PxjpkbusShoqv liver diseases (7 sources)Cirrhosis of liver; Translations: [Other cirrhosis of liver]Onset: 244772-07-1720HnvhsucVdkgn liver diseases (16 sources)Unspecified cirrhosis of liver; Translations: [Cirrhotic]Onset: 07-11-2021 Resolved: 70-72-3558FslwgiwLfymg liver diseases (2 sources)Non-alcoholic fatty liver; Translations: [Fatty (change of) liver, not elsewhere classified]ChronicOther liver diseases (20 sources)Fatty (change of) liver, not elsewhere classified; Translations: [Other chronic nonalcoholic liver disease]Onset: 09-13-2021 Resolved: 63-11-7781AyodtnjZyepu liver diseases (1 source)Other cirrhosis of liverOnset: 09-13-2021 Resolved: 00-20-4083XmrhqeeEmqbp liver diseases (11 sources)Cirrhosis - non-alcoholic; Translations: [Unspecified cirrhosis of liver]96-18-7164PaoshmhImpii lower respiratory disease (1 source)Cough; Translations: [Cough, unspecified type]88-59-0732RkpnelgyVywgb nervous system disorders (20 sources)Chronic pain; Translations: [Other chronic pain]Onset: 08-13-2022 53-20-6514EusawtzRffal nutritional; endocrine; and metabolic disorders (6 sources)Body mass index 30+ - obesity; Translations: [Body mass index (BMI) 30.0-30.9, adult]Onset: 552901-22-3814KxtalvgVrulv nutritional; endocrine; and metabolic disorders (2 sources)Body mass index (BMI) 31.0-31.9, adult; Translations: [Body mass index (BMI) 31.0-31.9, adult]Onset: 95-41-1834MfhuzniGqyuz nutritional; endocrine; and metabolic disorders (2 sources)Body mass index (BMI) 30.0-30.9, adult; Translations: [Body mass index (BMI) 30.0-30.9, adult]Onset: 62-99-5330EonwgefAqabxsriy heart disease (8 sources)Secondary pulmonary hypertension; Translations: [Other secondary pulmonary hypertension]Onset: 863400-42-6755WmyzqcyCxndekex codes; unclassified (6 sources)Localized edema; Translations: [Localized edema]Onset: 01-27-2025 15-82-6842ItzuimbzJrdvcazj codes; unclassified (1 source)Localized edema; Translations: [Localized edema]Onset: 01-27-2025 EpisodicScreening and history of mental health and substance abuse codes (20 sources)Personal history of nicotine dependence; Translations: [Ex-cigarette smoker]Onset: 910549-13-2577RnlwfmqpFgekgatvqgk injury; contusion (1 source)Contusion of other part of head, initial encounter; Translations: [CONTUS OTH PRT HEAD INITIAL ENCNTR]Onset: 86-63-9073AmogovrrApbvrjs (1 source)Syncope and collapse; Translations: [Syncope and collapse]Onset: 90-91-8335QfwmllnjIwskjts disorders (20 sources)Hypothyroidism, unspecified; Translations: [Acquired hypothyroidism] Onset: 704381-26-1437FdmztpgYlwvhftpfanl (4 sources)CONTACT W/AND (SUSP) EXPOS COVID-19; Translations: [CONTACT W/AND (SUSP) EXPOS COVID-19]Onset: 28-28-8736Sxldgcaowhqi (1 source)COUGH, UNSPECIFIED; Translations: [COUGH, UNSPECIFIED]Onset: 04-10-2021 Past or Other Problems Problem ClassificationProblemDateDocumented DateEpisodic/ChronicAbdominal pain (20 sources)Right upper quadrant pain; Translations: [Right upper quadrant pain] Onset: 02-07-2021 Resolved: 230740-96-3151HafcwuoaFmosa cerebrovascular disease (20 sources)Hemorrhage into subarachnoid space of neuraxis; Translations: [Nontraumatic subarachnoid hemorrhage, unspecified]Onset: 08-16-2021 Resolved: 78-74-7559ThntybjVrjxouc tract disease (20 sources)Calculus of gallbladder without cholecystitis without obstruction; Translations: [Calculus of gallbladder with cholecystitis]Onset: 02-07-2021 Resolved: 958352-64-0904IrcnmfnfArfjvxz dysrhythmias (14 sources)Bradycardia; Translations: [Bradycardia, unspecified]Onset: 658619-21-1462PwgtftkzWetjizfdse and other anemia (20 sources)Iron deficiency anemia; Translations: [Iron deficiency anemia, unspecified]Onset: 752704-90-7538PhurxwckJgrl disorders (17 sources)Mood disordersOnset: 10-21-2023 Resolved: 678894-77-5385Fzmkvwu (20 sources)Onychomycosis due to dermatophyte ; Translations: [Tinea unguium] Onset: 08-13-2022 Resolved: 408810-18-3021OadjdkgxZriva acquired deformities (20 sources)Spondylolysis of cervical spine; Translations: [Spondylolysis, cervical region]Onset: 192966-21-6660VfwrcqkvQtsbi aftercare (1 source)Other ocean transportation intermediary (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 therapy; Translations: [OTH REORDERING CLERK CURRENT DRUG THERAPY]Onset: 78-73-7741IsbrtjvqBubzs connective tissue disease (20 sources)Cramp; Translations: [Cramp and spasm]Onset: EpisodicOther disorders of stomach and duodenum (20 sources)Indigestion; Translations: [Functional dyspepsia]Onset: 08-13-2022 Resolved: 770993-60-0862TglicvbwNbgzp lower respiratory disease (3 sources)Pleurodynia; Translations: [PLEURODYNIA]Onset: 91-64-5804Edabkcbh Other nervous system disorders (20 sources)Unsteady when standing; Translations: [Unsteadiness on feet]Onset: 565922-28-2280EtkqdqnjXzalx nutritional; endocrine; and metabolic disorders (13 sources)Overweight in adulthood with body mass index of 25 or more but less than 30; Translations: [Body mass index (BMI) 29.0-29.9, adult]Onset: 01-01-2024 35-73-8611UkvlkxheEbguo screening for suspected conditions (not mental disorders or infectious disease) (20 sources)Liver function tests abnormal; Translations: [Other specified abnormal findings of blood chemistry]Onset: 879421-57-8300Egentyum Unclassified (1 source)CONTACT W/AND (SUSP) EXPOS COVID-19; Translations: [CONTACT W/AND (SUSP) EXPOS COVID-19]Onset: 40-97-4980Arzesnmmdele (5 sources)Onset: 06-20-2023 Resolved: Results Test NameValueInterpretationReference RangeFacilityXR chest 2V*on 27-26-2546ID chest 2V*[facility] [place] [address] XRay Report Signed Patient: Pankaj Payne MR#: [id number] : 1945 Acct:[id number] Age/Sex: 79 / M ADM Date: 01/15/25 Loc: Room: [address] [place] [address] Type: [facility] [place]: Leisa Jennings MD Copies to: Leisa Jennings M.D. Ordering Provider: Leisa Jennings M.D. Date of Service: 01/16/25 XR/XR chest 2V*: Rule out pneumothorax on only new implants cases in am 2 view chest without comparison. HISTORY: Pacemaker insertion. Assessment for pneumothorax. Cardiac device intact. Bilateral basilar interstitial changes greater on the left. Chronic basilar changes seen with CT of abdomen and pelvis of 1921. No pleural effusion. No developing pneum othorax. Cardiac and mediastinal silhouettes midline. XR/XR chest 2V* IMPRESSION: No developing pneumothorax. Intact cardiac device. The basilar parenchymal densities appearing chronic. Impression dictated by: Markus Sutton M.D. 01/16/2025 8:35 AM Dictation Location: [facility] Transcribed By: [facility] 01/16/25 0835 Dictated By: Markus Sutton DO 01/16/25 0833 Signed By: 01/16/25 0835[facility] HealthBasic Metabolic Panelon 51-35-1704Pwfaw gap [Moles/Vol]6.3 mmol/LNormal6.0-15.0The [facility] Physician GroupComment on above:Performed By: #### LIPID, PSAS, TSH3 wRFLX, CMP, PT #### [place] [address] [place] #### AFPTM #### [facility] ,Calcium [Mass/Vol]8.2 mg/dLLow8.6-10.3The [facility] Physician GroupComment on above:Performed By: #### LIPID, PSAS, TSH3 wRFLX, CMP, PT #### [place] [address] [place] #### AFPTM #### [facility] ,Chloride [Moles/Vol]112 mmol/PFhne14-038Wsp [facility] Physician GroupComment on above:Performed By: #### LIPID, PSAS, TSH3 wRFLX, CMP, PT #### [place] [address] [place] #### AFPTM #### [facility] ,CO2 [Moles/Vol]27.6 mmol/NBqaoas20.0-31.0The [facility] Physician GroupComment on above:Performed By: #### LIPID, PSAS, TSH3 wRFLX, CMP, PT #### [place] [address] [place] #### AFPTM #### [facility] ,Creatinine [Mass/Vol]0.69 mg/dLLow0.70-1.30The [facility] Physician [facility] HospitalComment on above:Performed By: #### LIPID, PSAS, TSH3 wRFLX, CMP, PT #### [place] [address] [place] #### AFPTM #### [facility] ,Creatinine Clr Calc Lcopfhpo61.70NormalThe [facility] Physician GroupComment on above:Result Comment: PERFORMED BY: [place] [address] PATHOLOGIST LEARNING AND DEVELOPMENT SPECIALIST GUERA MARROQUIN M.D.Performed By: #### LIPID, PSAS, TSH3 wRFLX, CMP, PT #### [address] #### AFPTM #### [facility] ,GFR/1.73 sq M.predicted MDRD (S/P/Bld) [Vol rate/Area]mL/min/{1.73_m2}NormalThe [facility] Physician [facility] HospitalComment on above:Performed By: #### LIPID, PSAS, TSH3 wRFLX, CMP, PT #### [address] #### AFPTM #### [facility] ,Glucose [Mass/Vol]99 mg/oWJtjvro79-179Pha [facility] Physician [facility]S HospitalComment on above:Result Comment: Random Glucose Reference Range is dependent on time and content of last meal. Glucose of more than 200 mg/dL in a nonstressed, ambulatory subject supports the diagnosis of Diabetes Mellitus. ADA recommended reference rangePerformed By: #### LIPID, PSAS, TSH3 wRFLX, CMP, PT #### [place] [address] [place] #### AFPTM #### [facility] ,Potassium [Moles/Vol]3.9 mmol/LNormal3.5-5.1[facility] Comment on above:Performed By: #### LIPID, PSAS, TSH3 wRFLX, CMP, PT #### [address] #### AFPTM #### [facility] ,Sodium [Moles/Vol]142 mmol/NQyjazh264-604Kte [facility] Physician GroupComment on above:Performed By: #### LIPID, PSAS, TSH3 wRFLX, CMP, PT #### [address] #### AFPTM #### [facility] ,Urea nitrogen [Mass/Vol]16 mg/dLNormal7-e [facility] Physician GroupComment on above:Performed By: #### LIPID, PSAS, TSH3 wRFLX, CMP, PT #### [address] #### AFPTM #### [facility] ,Complete Blood Count Auto Diffon 99-12-3085Yivpzarqm (Bld) [#/Vol]0.1 10*3/uL Normal0.0-0.2The [facility] Physician GroupComment on above:Result Comment: PERFORMED BY: [place] [address] PATHOLOGIST LEARNING AND DEVELOPMENT SPECIALIST GUERA MARROQUIN M.D.Performed By: #### LIPID, PSAS, TSH3 wRFLX, CMP, PT #### [address] #### AFPTM #### [facility] ,Basophils/100 WBC (Bld)1.2 %Normal.The [facility] Physician GroupComment on above:Performed By: #### LIPID, PSAS, TSH3 wRFLX, CMP, PT #### [place] [address] [place] #### AFPTM #### [facility] ,Eosinophils (Bld) [#/Vol]0.1 10*3/uLNormal0.0-0.45The [facility]ician Group Comment on above:Performed By: #### LIPID, PSAS, TSH3 wRFLX, CMP, PT #### [place] [address] [place] #### AFPTM #### [facility] ,Eosinophils/100 WBC (Bld)1.5 %Normal.The [facility] Physician GroupComment on above:Performed By: #### LIPID, PSAS, TSH3 wRFLX, CMP, PT #### [place] [address] [place] #### AFPTM #### [facility] ,Erythrocyte distribution width (RBC) [Ratio]21.0 %High12.0-14.8The [facility] Physician GroupComment on above:Performed By: #### LIPID, PSAS, TSH3 wRFLX, CMP, PT #### [place] [address] [place] #### AFPTM #### [facility] ,Hematocrit (Bld) [Volume fraction]37.5 %Low38.8-50.0The [facility] Physician GroupComment on above:Performed By: #### LIPID, PSAS, TSH3 wRFLX, CMP, PT #### [address] #### AFPTM #### [facility] ,Hemoglobin (Bld) [Mass/Vol]12.4 g/dLLow13.0-17.0The [facility]ician Group Comment on above:Performed By: #### LIPID, PSAS, TSH3 wRFLX, CMP, PT #### [place] [address] [place] #### AFPTM #### [facility] ,Lymphocytes (Bld) [#/Vol]0.5 10*3/uLLow1.00-4.8The [facility] Comment on above:Performed By: #### LIPID, PSAS, TSH3 wRFLX, CMP, PT #### [place] [address] [place] #### AFPTM #### [facility] ,Lymphocytes/100 WBC (Bld)11.5 %Normal.The [facility] Physician GroupComment on above:Performed By: #### LIPID, PSAS, TSH3 wRFLX, CMP, PT #### [place] [address] [place] #### AFPTM #### [facility] ,MCH (RBC) [Entitic mass]30.9 pgMfppez87.5-35.2The [facility]ician Group Comment on above:Performed By: #### LIPID, PSAS, TSH3 wRFLX, CMP, PT #### [address] #### AFPTM #### [facility] ,MCV (RBC) [Entitic vol]93.7 vVAhvjum10.5-101The [facility] Comment on above:Performed By: #### LIPID, PSAS, TSH3 wRFLX, CMP, PT #### [place] [address] [place] #### AFPTM #### [facility] ,Mean Corpuscular HGB Conc33.0 g/bBGwbwpk56.5-35.6The [facility] Comment on above:Performed By: #### LIPID, PSAS, TSH3 wRFLX, CMP, PT #### [place] [address] [place] #### AFPTM #### [facility] ,Monocytes (Bld) [#/Vol]0.3 10*3/uLNormal0.0-0.8The [facility] Comment on above:Performed By: #### LIPID, PSAS, TSH3 wRFLX, CMP, PT #### [place] [address] [place] #### AFPTM #### [facility] ,Monocytes/100 WBC (Bld)7.7 %Normal.The [facility] Physician GroupComment on above:Performed By: #### LIPID, PSAS, TSH3 wRFLX, CMP, PT #### [place] [address] [place] #### AFPTM #### [facility] ,Neutrophils (Bld) [#/Vol]3.5 10*3/uLNormal1.8-7.7The [facility] Comment on above:Performed By: #### LIPID, PSAS, TSH3 wRFLX, CMP, PT #### [facility] [address] [place] [address] [place] #### AFPTM #### [facility] ,Neutrophils/100 WBC (Bld)78.1 %Normal.The [facility] Physician GroupComment on above:Performed By: #### LIPID, PSAS, TSH3 wRFLX, CMP, PT #### [place] [address] [place] #### AFPTM #### [facility] ,NRBC%0.0 /100{WBC}Normal0-0.5The [facility] Physician GroupComment on above: Performed By: #### LIPID, PSAS, TSH3 wRFLX, CMP, PT #### [facility] [address] [place] [address] [place] #### AFPTM #### [facility] ,Platelet mean volume (Bld) [Entitic vol]8.6 fLNormal6.6-10.1The [facility] Physician GroupComment on above:Performed By: #### LIPID, PSAS, TSH3 wRFLX, CMP, PT #### [facility] [address] [place] [address] [place] #### AFPTM #### [facility] ,Platelets (Bld) [#/Vol]88 10*3/bDKiu599-260Bvp [facility] Physician GroupComment on above:Performed By: #### LIPID, PSAS, TSH3 wRFLX, CMP, PT #### [facility] [address] [place] [address] [place] #### AFPTM #### [facility] ,RBC (Bld) [#/Vol]4.00 10*6/uLNormal3.90-5.60The [facility] Comment on above:Performed By: #### LIPID, PSAS, TSH3 wRFLX, CMP, PT #### [facility] [address] [place] [address] #### AFPTM #### [facility] ,WBC (Bld) [#/Vol]4.5 10*3/uLNormal4.1-10.5The [facility] Physician GroupComment on above:Performed By: #### LIPID, PSAS, TSH3 wRFLX, CMP, PT #### [facility] [address] [place] [address] [place] #### AFPTM #### [facility] ,White Blood Count4.5 [CFU]/mLNormal4.1-10.5The [facility] Physician GroupComment on above:Performed By: #### LIPID, PSAS, TSH3 wRFLX, CMP, PT #### [address] #### AFPTM #### [facility] ,ECG 12 lead ECGon 41-57-6140DLF 12 lead ECGJOINT TOWNSHIP DISTRICT [facility] [address] Electrocardiograph Report Signed Patient: Pankaj Payne MR#: [id number] : 1945 Acct:[id number] Age/Sex: 79 / M ADM Date: 01/15/25 Loc: 4 Room: 2G0381-2 Type: [facility] Attending Dr: Leisa Jennings MD Ordering Provider: Leisa Jennings M.D. Date of Service: 01/15/25 ECG/ECG 12 lead ECG: Post rhythm check after procedure Copies to: Test Reason : Blood Pressure : */* mmHG Vent. Rate : 72 BPM Atrial Rate : 63 BPM P-R Int : 244 ms QRS Dur : 124 ms QT Int : 416 ms P-R-T Axes : 25 -82 -11 degrees QTcB Int : 455 ms Atrial-paced rhythm with prolonged AV conduction with occasional and consecutive supraventricular complexes Left anterior fascicular block Possible Lateral infarct , age undetermined Abnormal ECG No previous ECGs available Confirmed by CHAUNCEY CROFT [facility], MICHAELA ([id number]) on 01/16/2025 11:39:21 AM Referred By: Electronically Signed By: MICHAELA GROSSMAN MD [facility] Transcribed By: MUS Signed By Michaela Grossman MD, [facility] 01/16/25 1139NormU[facility] Physician GroupPartial Thromboplastin Timeon 64-77-2750gKTP Coag (Bld) [Time]32.3 eDcpswz76.1-36.5The [facility] Physician [facility] HospitalComment on above:Result Comment: A hematocrit value greater than 55% may lead to inaccurate results in coagulation testing. Patients having hematocrit values >55% require a special collection tube for coagulation studies. Please contact the laboratory at [phone] for redraw instructions. PERFORMED BY: [place] [address] PATHOLOGIST LEARNING AND DEVELOPMENT SPECIALIST GUERA MARROQUIN M.D.Performed By: #### LIPID, PSAS, TSH3 wRFLX, CMP, PT #### [facility] [address] [place] [address] #### AFPTM #### [facility] ,Prothrombin Time INRon 67-13-7686VCC Coag (PPP) [Relative time]1.2 {INR}Normal The [facility] Physician [facility] HospitalComment on above:Result Comment: INR Therapeutic Range A) Pre- and [...] patients with mechanical heart valves: 3 - 4.5Performed By: #### LIPID, PSAS, TSH3 wRFLX, CMP, PT #### [address] #### AFPTM #### [facility] ,PT Coag (PPP) [Time]13.7 sHigh9.0-12.9The [facility] Physician GroupComment on above:Result Comment: A hematocrit value greater than 55% may lead to inaccurate results in coagulation testing. Patients having hematocrit values >55% require a special collection tube for coagulation studies. Please contact the laboratory at [phone] for redraw instructions.Performed By: #### LIPID, PSAS, TSH3 wRFLX, CMP, PT #### [address] #### AFPTM #### [facility] ,Urine Cultureon 04-31-9259Hsdalosr identified Cx Nom (U)No Growth 2 Days PERFORMED BY: [place] [address] PATHOLOGIST LEARNING AND DEVELOPMENT SPECIALIST GUERA MARROQUIN M.D.NormalThe [facility] Physician [facility] HospitalComment on above: Performed By: #### LIPID, PSAS, TSH3 wRFLX, CMP, PT #### [address] #### AFPTM #### [facility] ,ALL CBC WITH AUTO DIFFon 64-84-6386ZWGKFVPEL ABSOLUTE CSNQ9KYJX Healthcare Basophils/100 WBC (Bld)0.6 %0.2 - 2.0 %[facility] HealthcareEosinophils/100 WBC (Bld) 3.2 %0.9 - 7.0 %[facility] HealthcareErythrocyte distribution width (RBC) [Ratio]14.3 %11.0 - 15.0 %[facility] HealthcareHematocrit (Bld) [Volume fraction]33.2 %Low42.0 - 54.0 %[facility] HealthcareHemoglobin (Bld) [Mass/Vol]10.8 g/dLLow14.0 - 18.0 g/dLNOMercy Hospital JoplinIMMATURE GRANULOCYTES ABS AUTO0.01NOMercy Hospital JoplinImmature granulocytes/100 WBC (Bld)0.3 %0.0 - 0.5 %[facility] CenterInterpretation and review of laboratory resultsAbnormalNOPR HealthcareLYMPHOCYTES ABSOLUTE AUTO0.6 LowNOPR HealthcareLymphocytes/100 WBC (Bld)19.4 %Low20.5 - 60.0 %[facility] MCH (RBC) [Entitic mass]31.5 pg25.9 - 34.0 pgNOMercy Hospital JoplinMCHC (RBC) [Mass/Vol]32.5 g/dL29.9 - 35.2 g/dLNOMercy Hospital JoplinMCV (RBC) [Entitic vol]96.8 fL High80.0 - 94.0 fLMissouri Delta Medical CenterMONOCYTES ABSOLUTE AUTO0.2LowNLafayette Regional Health Center Monocytes/100 WBC (Bld)7.3 %1.7 - 12.0 %[facility] Medical CenterNEUTROPHILS ABSOLUTE AUTO 2.2NOMS [facility] InstituteNeutrophils/100 WBC (Bld)69.2 %43.0 - 75.0 %[facility] Platelet mean volume (Bld) [Entitic vol]11 fL9.5 - 13.5 fLNOMercy Hospital JoplinTB EO #0.1NOMS HealthcareTB VFV13VjjVKVMMercy Hospital JoplinTB RBC3.43LowNOMercy Hospital JoplinTB WBC3.1LowNLafayette Regional Health CenterCLINISYNCNFAIRFAX COMMUNITY HOSPITAL – FAIRFAX HealthcareAlanine aminotransferase [Enzymatic activity/volume] in Serum or PlasmaOrdered By: Mick Branch on 05-12-9737NTT [Catalytic activity/Vol]52 U/LNormal7-52[facility] Medical CenterComment on above:Performed By: #### LIPID, PSAS, TSH3 wRFLX, CMP, PT #### [facility] [address] #### AFPTM #### [facility] ,Albumin [Mass/volume] in Serum or Plasma by Bromocresol green (BCG) dye binding methoOrdered By: Mick Branch on 56-73-3301Vismblj BCG dye [Mass/Vol]3.1 g/dL Low3.5-5.7FHolzer Medical Center – JacksonAlkaline phosphatase [Enzymatic activity/volume] in Serum or PlasmaOrdered By: Mick Branch on 73-25-1735AJN [Catalytic activity/Vol]124 U/YAxhw33-782BjleelqxnCommunity Regional Medical Center Comment on above:Result Comment: PERFORMED BY: [place] [address] PATHOLOGIST LEARNING AND DEVELOPMENT SPECIALIST GUERA MARROQUIN M.D.Performed By: #### LIPID, PSAS, TSH3 wRFLX, CMP, PT #### [address] #### AFPTM #### [facility] ,Aspartate aminotransferase [Enzymatic activity/volume] in Serum or Plasma Ordered By: Mick Branch on 63-60-9327DMD [Catalytic activity/Vol]58 U/LHigh 13-39[facility] Medical CenterComment on above:Performed By: #### LIPID, PSAS, TSH3 wRFLX, CMP, PT #### [place] [address] [place] #### AFPTM #### [facility] ,Basophils [#/volume] in Blood by Automated countOrdered By: Mick Branch on 36-68-9273Fbmvlxcob (Bld) [#/Vol]0.0 10*3/uLNormal0.0-0.2FHolzer Medical Center – JacksonComment on above:Result Comment: PERFORMED BY: [place] [address] PATHOLOGIST LEARNING AND DEVELOPMENT SPECIALIST GUERA MARROQUIN M.D.Performed By: #### PT, CMP, CBC #### [place] [address] USABasophils/100 leukocytes in Blood by Automated count Ordered By: Mick Branch on 21-02-8913Aipfhbmgu/100 WBC (Bld)0.8 %Normal. [facility] Medical CenterComment on above:Performed By: #### PT, CMP, CBC #### [place] [address] USABilirubin.total [Mass/volume] in Serum or PlasmaOrdered By: Mick Branch on 13-31-0730Zaifmdbjz [Mass/Vol]0.9 mg/dLNormal0.3-1.0 [facility] CenterComment on above:Performed By: #### LIPID, PSAS, TSH3 wRFLX, CMP, PT #### [facility] [address] [place] [address] [place] #### AFPTM #### [facility] ,Calcium [Mass/volume] in Serum or PlasmaOrdered By: Mick Branch on 11-02-2024 Calcium [Mass/Vol]7.9 mg/dLLow8.6-10.3FHolzer Medical Center – JacksonComment on above:Performed By: #### LIPID, PSAS, TSH3 wRFLX, CMP, PT #### [facility] [address] [place] [address] [place] #### AFPTM #### [facility] ,Carbon dioxide, total [Moles/volume] in Serum or PlasmaOrdered By: Mick Branch on 23-62-9561UE4 [Moles/Vol]29.1 mmol/SUfyktx98.0-31.0[facility] Medical CenterComment on above:Performed By: #### LIPID, PSAS, TSH3 wRFLX, CMP, PT #### [facility] [address] [place] [address] [place] #### AFPTM #### [facility] ,Chloride [Moles/volume] in Serum or PlasmaOrdered By: Mick Branch on 56-96-5534Mcoihocn [Moles/Vol]110 mmol/STvqf64-319OqgcwwupfCommunity Regional Medical CenterComment on above:Performed By: #### LIPID, PSAS, TSH3 wRFLX, CMP, PT #### [facility] [address] [place] [address] [place] #### AFPTM #### [facility] ,Complete Blood Count Auto Diffon 20-52-8070Bewr Corpuscular HGB Conc33.5 g/dL Asnldi46.5-35.6The [facility] Physician GroupComment on above:Performed By: #### PT, CMP, CBC #### [facility] [address] [place] [address] USANRBC%0.0 /100{WBC}Normal0-0.5The [facility] Physician [facility] Comment on above:Performed By: #### PT, CMP, CBC #### [facility] [address] [place] [address] USAWhite Blood Count3.0 [CFU]/mLLow4.1-10.5The [facility] Physician [facility]S HospitalComment on above:Performed By: #### PT, CMP, CBC #### [facility] [address] [place] [address] USAComprehensive Metabolic Panelon 52-19-0242Anqdfen [Mass/Vol]3.1 g/dLLow3.5-5.7The [facility] Physician [facility] HospitalComment on above: Performed By: #### LIPID, PSAS, TSH3 wRFLX, CMP, PT #### [facility] [address] [place] [address] [place] #### AFPTM #### [facility] ,GFR/1.73 sq M.predicted MDRD (S/P/Bld) [Vol rate/Area]mL/min/{1.73_m2}NormalThe [facility] Physician [facility] HospitalComment on above:Performed By: #### LIPID, PSAS, TSH3 wRFLX, CMP, PT #### [facility] [address] [place] [address] [place] #### AFPTM #### [facility] ,Creatinine [Mass/volume] in Serum or PlasmaOrdered By: Mick Branch on 42-99-3390Sbrsfhxcyq [Mass/Vol]0.71 mg/dLNormal0.70-1.30[facility] CenterComment on above:Performed By: #### LIPID, PSAS, TSH3 wRFLX, CMP, PT #### [facility] [address] [place] [address] [place] #### AFPTM #### [facility] ,Eosinophils [#/volume] in Blood by Automated countOrdered By: Mick Branch on 44-02-1019Pajlxidsxtw (Bld) [#/Vol]0.1 10*3/uLNormal0.0-0.45[facility] CenterComment on above:Performed By: #### PT, CMP, CBC #### [facility] [address] [place] [address] USAEosinophils/100 leukocytes in Blood by Automated count Ordered By: Mick Branch on 99-62-9848Wtcolxcfwvd/100 WBC (Bld)1.8 %Normal. [facility] CenterComment on above:Performed By: #### PT, CMP, CBC #### [place] [address] USAErythrocyte distribution width [Ratio] by Automated count Ordered By: Mick Branch on 70-45-1736Otmkreipkpm distribution width (RBC) [Ratio]16.4 %High12.0-14.8[facility] CenterComment on above: Performed By: #### PT, CMP, CBC #### [place] [address] USAErythrocytes [#/volume] in Blood by Automated countOrdered By: Mick Branch on 56-59-0197NUO (Bld) [#/Vol]3.58 10*6/uLLow3.90-5.60 [facility] CenterComment on above:Performed By: #### PT, CMP, CBC #### [facility] [address] [place], [place] [address] USAGlucose [Mass/volume] in Serum or PlasmaOrdered By: Mick Branch on 90-81-2976Bhihbyy [Mass/Vol]120 mg/tZGndz29-765TrtpamezyCommunity Regional Medical CenterComment on above:ADA recommended reference rangeRandom Glucose Reference Range is dependent on time and content of last meal. Glucose of more than 200 mg/dL in a nonstressed, ambulatory subject supports the diagnosisof Diabetes Mellitus.Result Comment: Random Glucose Reference Range is dependent on time and content of last meal. Glucose of more than 200 mg/dL in a nonstressed, ambulatory subject supports the diagnosis of Diabetes Mellitus. ADA recommended reference rangePerformed By: #### LIPID, PSAS, TSH3 wRFLX, CMP, PT #### [facility] [address] [place] [address] [place] #### AFPTM #### [facility] ,Hematocrit [Volume Fraction] of Blood by Automated countOrdered By: Mick Branch on 80-15-6328Qzgcistbrk (Bld) [Volume fraction]34.1 %Low38.8-50.0[facility] Medical CenterComment on above:Performed By: #### PT, CMP, CBC #### [place] [address] USAHemoglobin [Mass/volume] in BloodOrdered By: Mick Branch on 05-76-0253Vcglbtfyej (Bld) [Mass/Vol]11.4 g/dLLow13.0-17.0Community Regional Medical CenterComment on above:Performed By: #### PT, CMP, CBC #### [place] [address] USAINR in Platelet poor plasma by Coagulation assayOrdered By: Mick Branch on 37-03-9846ADB Coag (PPP) [Relative time]1.2 {INR}Normal [facility] Medical CenterComment on above:INR Therapeutic Range A) Pre- and Peroperative OAT started two weeks before surgery. NOT HIP SURGERY: 1.5 - 2.5 HIP SURGERY: 2 - 3B) Primary and secondary prevention of venous THROMBOSIS: 2 - 3C) Active venous thrombosis, pulmonary embolismand prevention of recurrent venous thrombosis: 2 - 3D) Prevention of arterial thromboembolismincluding patients with mechanical heart valves: 3 - 4.5Result Comment: INR Therapeutic Range A) Pre- and [...] heart valves: 3 - 4.5 PERFORMED BY: [place] [address] PATHOLOGIST LEARNING AND DEVELOPMENT SPECIALIST GUERA MARROQUIN M.D.Performed By: #### LIPID, PSAS, TSH3 wRFLX, CMP, PT #### [facility] [address] [place] [address] [place] #### AFPTM #### [facility] ,Leukocytes [#/volume] corrected for nucleated erythrocytes in Blood by Automated counOrdered By: Mick Branch on 88-73-7241NKP corrected for nucl RBC Auto (Bld) [#/Vol]3.0 10*3/uLLow4.1-10.5FHolzer Medical Center – Jackson Leukocytes [#/volume] in Blood by Automated countOrdered By: Mick Branch on 47-07-6651TWK (Bld) [#/Vol]3.0 10*3/uLLow4.1-10.5FHolzer Medical Center – JacksonComment on above:Performed By: #### PT, CMP, CBC #### [facility] [address] [place] [address] USALymphocytes [#/volume] in Blood by Automated countOrdered By: Mick Branch on 26-92-6338Nxehkjgptqj (Bld) [#/Vol]0.5 10*3/uLLow1.00-4.8 [facility] CenterComment on above:Performed By: #### PT, CMP, CBC #### [facility] [address] [place], [place] [id number] USALymphocytes/100 leukocytes in Blood by Automated count Ordered By: Mick Branch on 02-43-4942Vamhxiwezpz/100 WBC (Bld)15.8 %Normal. [facility] Medical CenterComment on above:Performed By: #### PT, CMP, CBC #### [facility] [address] [place], [place] [address] USAMCH [Entitic mass] by Automated countOrdered By: Mick Branch on 09-59-9686PZO (RBC) [Entitic mass]31.9 gtEykfkj31.5-35.2FHolzer Medical Center – JacksonComment on above:Performed By: #### PT, CMP, CBC #### [facility] [address] Auto (RBC) [Mass/Vol]Ordered By: Mick Branch on 51-11-8359MRIA (RBC) [Mass/Vol]33.5 g/dL32.5-35.6FHolzer Medical Center – JacksonMCV [Entitic volume] by Automated countOrdered By: Mick Branch on 12-35-2054HIJ (RBC) [Entitic vol]95.2 oPHqcpdj99.5-101[facility] Medical CenterComment on above:Performed By: #### PT, CMP, CBC #### [place] [address] USAMonocytes [#/volume] in Blood by Automated countOrdered By: Mick Branch on 72-52-6679Gpxnkushm (Bld) [#/Vol]0.2 10*3/uLNormal0.0-0.8 [facility] CenterComment on above:Performed By: #### PT, CMP, CBC #### [facility] [address] [place] [address] USAMonocytes/100 leukocytes in Blood by Automated count Ordered By: Mick Branch on 81-07-0750Crbmnnfpi/100 WBC (Bld)6.7 %Normal. [facility] Medical CenterComment on above:Performed By: #### PT, CMP, CBC #### [facility] [address] [place] [address] USANeutrophils [#/volume] in Blood by Automated countOrdered By: Mick Branch on 84-35-8392Sptlwigpcdw (Bld) [#/Vol]2.2 10*3/uLNormal1.8-7.7 [facility] Medical CenterComment on above:Performed By: #### PT, CMP, CBC #### [facility] [address] [place] [address] USANeutrophils/100 leukocytes in Blood by Automated count Ordered By: Mick Branch on 84-15-9743Ohsytbzdyss/100 WBC (Bld)74.9 %Normal. [facility] Medical CenterComment on above:Performed By: #### PT, CMP, CBC #### [facility] [address] [place] [address] USANo Panel InformationOrdered By: Mick Branch on 76-72-9254Aufhlbvam GFR (CKD-EPI)> 60.0 mL/MinCommunity Regional Medical Center Pharmacy Creatinine Clearance (ChemN/AFHolzer Medical Center – JacksonNucleated erythrocytes [Presence] in Blood by Automated countOrdered By: Mick Branch on 56-10-6864Cqxzciaki RBC Auto Ql (Bld)0.0 /100{WBC}0-0.5FHolzer Medical Center – JacksonPlatelet mean volume [Entitic volume] in Blood by Automated count Ordered By: Mick Branch on 65-63-6635Bxmdzxwv mean volume (Bld) [Entitic vol] 8.0 fLNormal6.6-10.1FHolzer Medical Center – JacksonComment on above:Performed By: #### PT, CMP, CBC #### [facility] [address] [place] [address] USAPlatelets [#/volume] in Blood by Automated countOrdered By: Mick Branch on 61-60-0284Mdseinbix (Bld) [#/Vol]102 10*3/eIUcm227-054 [facility] Medical CenterComment on above:Performed By: #### PT, CMP, CBC #### [facility] [address] [place] [address] USAPotassium [Moles/volume] in Serum or PlasmaOrdered By: Mick Branch on 39-54-5648Sllzxycqx [Moles/Vol]3.9 mmol/LNormal3.5-5.1FHolzer Medical Center – JacksonComment on above:Performed By: #### LIPID, PSAS, TSH3 wRFLX, CMP, PT #### [facility] [address] [place] [address] [place] #### AFPTM #### [facility] ,Protein [Mass/volume] in Serum or PlasmaOrdered By: Mick Branch on 11-02-2024 Protein [Mass/Vol]5.8 g/dLLow6.4-8.9[facility] Medical CenterComment on above:Performed By: #### LIPID, PSAS, TSH3 wRFLX, CMP, PT #### [facility] [address] [place] [address] #### AFPTM #### [facility] ,Prothrombin time (PT)Ordered By: Mick Branch on 41-21-7990FL Coag (PPP) [Time]13.5 sHigh9.0-12.9[facility] Medical CenterComment on above:A hematocrit value greater than 55% may lead to inaccurate results in coagulation testing. Patientshaving hematocrit values >55% require a special collection tube for coagulation studies. Please contact the laboratory at [phone] for redraw instructions.Result Comment: A hematocrit value greater than 55% may lead to inaccurate results in coagulation testing. Patients having hematocrit values >55% require a special collection tube for coagulation studies. Please contact the laboratory at [phone] for redraw instructions.Performed By: #### LIPID, PSAS, TSH3 wRFLX, CMP, PT #### [address] #### AFPTM #### [facility] ,Serum globulin measurement by calculation (mass/volume)Ordered By: Mick Branch on 74-55-1486Rdjkpisl (S) [Mass/Vol]2.7 g/dLNormalCommunity Regional Medical CenterComment on above:Performed By: #### LIPID, PSAS, TSH3 wRFLX, CMP, PT #### [facility] [address] [place] [address] [place] #### AFPTM #### [facility] ,Serum or plasma albumin/globulin mass ratioOrdered By: Mick Branch on 69-64-2459Txudqvt/Globulin [Mass ratio]1.1 {ratio}NormalNewark Hospital CenterComment on above:Performed By: #### LIPID, PSAS, TSH3 wRFLX, CMP, PT #### [facility] [address] [place] [address] [place] #### AFPTM #### [facility] ,Serum or plasma anion gap determinationOrdered By: Mick Branch on 11-02-2024 Anion gap [Moles/Vol]5.8 mmol/LLow6.0-15.0[facility] Comment on above:Performed By: #### LIPID, PSAS, TSH3 wRFLX, CMP, PT #### [facility] [address] [place] [address] [place] #### AFPTM #### [facility] ,Sodium [Moles/volume] in Serum or PlasmaOrdered By: Mick Branch on 11-02-2024 Sodium [Moles/Vol]141 mmol/LFgdggh305-878AxgrexzeaCommunity Regional Medical Center Comment on above:Performed By: #### LIPID, PSAS, TSH3 wRFLX, CMP, PT #### [facility] [address] [place] [address] [place] #### AFPTM #### [facility] ,Urea nitrogen [Mass/volume] in Serum or PlasmaOrdered By: Mick Branch on 39-76-2885Kbbl nitrogen [Mass/Vol]15 mg/dLNormal7-25[facility] Medical CenterComment on above:Performed By: #### LIPID, PSAS, TSH3 wRFLX, CMP, PT #### [facility] [address] [place] [address] [place] #### AFPTM #### [facility] ,ALL BASIC METABOLIC PANELon 42-54-4542Wkhdk gap [Moles/Vol]13.1 mmol/LNOMS HealthcareCalcium [Mass/Vol]9 mg/dL8.5 - 10.1 mg/dLNOMS HealthcareChloride [Moles/Vol]111 mmol/LHigh98 - 107 mmol/LNOMS HealthcareCO2 [Moles/Vol]26.2 mmol/L21.0 - 32.0 mmol/LNOMS HealthcareCreatinine [Mass/Vol]0.89 mg/dL0.70 - 1.30 mg/dLNOPR HealthcareGFR/1.73 sq M.predicted CKD-EPI (S/P/Bld) [Vol rate/Area]>60>=60 mL/min/1.73m 2NFAIRFAX COMMUNITY HOSPITAL – FAIRFAX HealthcareGlucose [Mass/Vol]106 mg/dL74 - 106 mg/dLNOPR HealthcarePotassium [Moles/Vol]4.3 mmol/L3.5 - 5.1 mmol/LNOMS HealthcareSodium [Moles/Vol]146 mmol/BDlsp052 - 145 mmol/LNOMS HealthcareTBH EGFR-NON AF LUXEMBOURGER>60>=60 mL/min/1.73m 2NFAIRFAX COMMUNITY HOSPITAL – FAIRFA[facility] HealthcareUrea nitrogen [Mass/Vol]17 mg/dL7.0 - 18.0 mg/dLNOMercy Hospital JoplinUrea nitrogen/Creatinine [Mass ratio]19.1 mg/mgNOMercy Hospital JoplinALL LIPID PROFILE (FASTING)on 35-55-6252HDLI HDL RATIO1.9NOPR HealthcareComment on above:3.3 - 4.4 LOW RISK 4.4 - 7.1 AVERAGE RISK 7.1 - 11.0 MODERATE RISK >11.0 HIGH RISK Cholesterol [Mass/Vol]113 mg/dLNINF - 200 mg/dLMissouri Delta Medical CenterCholesterol in HDL [Mass/Vol]60 mg/dL40 - 60 mg/dLNOPR HealthcareComment on above:> or =60 mg/dl - LOW CARDIOVASCULAR RISK <40 mg/dl - HIGH CARDIOVASCULAR RISK Magnesium [Mass/Vol]41.4 mg/dLGARFIELD MEMORIAL HOSPITAL HealthcareComment on above:<100 mg/dl OPTIMAL 100-129 mg/dl NEAR OR ABOVE OPTIMAL 130-159 mg/dl BORDERLINE HIGH 160-189 mg/dl HIGH >190 mg/dl VERY HIGH Magnesium [Mass/Vol]11.6 mg/dLMissouri Delta Medical CenterTriglyceride [Mass/Vol]58 mg/dLNINF - 150 mg/dLNortheast Regional Medical Center Ever 13-80-4354IYC [Catalytic activity/Vol]51 U/L16 - 63 U/LNSaint John's Aurora Community HospitalF Porfirio 07-03-5832MFT [Catalytic activity/Vol]46 U/LHigh15 - 37 U/LNLafayette Regional Health CenterNo Panel Informationon 50-31-1327Yqnftrfdvjbbnv and review of laboratory resultsAbNovant Health Clemmons Medical Center ALL CBC WITH AUTO DIFFon 26-64-3911Krhrualaozz distribution width (RBC) [Ratio] 13.8 %11.0 - 15.0 %NOMS HealthcareHematocrit (Bld) [Volume fraction]37.5 %Low 42.0 - 54.0 %NOM HealthcareHemoglobin (Bld) [Mass/Vol]12.6 g/dLLow14.0 - 18.0 g/dLGARFIELD MEMORIAL HOSPITAL HealthcareInterpretation and review of laboratory resultsAbnormalNortheast [facility] (RBC) [Entitic mass]31.2 pg25.9 - 34.0 pgWestern Missouri Mental Health CenterHC (RBC) [Mass/Vol]33.6 g/dL29.9 - 35.2 g/dLWestern Missouri Mental Health CenterV (RBC) [Entitic vol]92.8 fL 80.0 - 94.0 fLMissouri Delta Medical CenterPlatelet mean volume (Bld) [Entitic vol]10.6 fL9.5 - 13.5 fLMissouri Delta Medical CenterTB LMP76JmhPHAGMercy Hospital JoplinTB RBC4.04LowMissouri Delta Medical Center TBH WBC3.3LowMissouri Delta Medical CenterCLINISJellico Medical Center36on 00-33-290042Zbjk patient hasn't been seen since 2022NormalUnicarl r. darnall army [facility] of [facility] HospitalUS abdomen limitedon 73-50-9217IL abdomen limitedJOINT TOWNSHIP DISTRICT [place] [address] Ultrasound Report Signed Patient: Pankaj Payne MR#: [id number] : 1945 Acct:[id number] Age/Sex: 78 / M ADM Date: 05/21/24 Loc: Room: Type: [facility] Attending Dr: Mick Branch MD Ordering [...] MASS.. Impression dictated by: Kartik Claros Jr., DKitaOKita05/21/2024 10:23 AM Dictation Location: [place] [address] Tech: Lizzy Llanes Transcribed By: USMAN 05/21/24 1023 Dictated By: Kartik Claros Jr, DO 05/21/24 1022 Signed By: 05/21/24 1023[facility] Physician GroupAFP Tumor Marker, Serumon 87-71-3874IDE Tumor Marker, Serum2.5 ng/mLNormal0.0-8.4The [facility] Physician [facility]'S HospitalComment on above:Result Comment: [facility] Electrochemiluminescence Immunoassay (ECLIA) Values obtained with different assay methods or kits cannot be used interchangeably. Results cannot be interpreted as absolute evidence of the presence or absence of malignant disease. This test is not interpretable in females. Performed at: - [facility] [id number] Equipment Washer: Charlie Klein PhD, Phone: [phone] PERFORMED BY: [place] [address] PATHOLOGIST LEARNING AND DEVELOPMENT SPECIALIST LUCIUS IRELAND M.D.Performed By: #### LIPID, PSAS, TSH3 wRFLX, CMP, PT #### [address] #### AFPTM #### [facility] ,Alanine aminotransferase [Enzymatic activity/volume] in Serum or PlasmaOrdered By: Mick Branch on 55-96-7061SIB [Catalytic activity/Vol]Alanine aminotransferase [Enzymatic activity/volume] in Serum or Plasma[address] [place], [place] [address]Albumin [Mass/volume] in Serum or Plasma by Bromocresol green (BCG) dye binding methoOrdered By: Mick Branch on 96-07-9865Pghivcx BCG dye [Mass/Vol]Albumin [Mass/volume] in Serum or Plasma by Bromocresol green (BCG) dye binding metho3.5-5.7FHolzer Medical Center – JacksonAlkaline phosphatase [Enzymatic activity/volume] in Serum or PlasmaOrdered By: Mick Branch on 82-66-8549ZOU [Catalytic activity/Vol]Alkaline phosphatase [Enzymatic activity/volume] in Serum or AgonrgLkrm01-848JaxgxawtvCommunity Regional Medical Center Aspartate aminotransferase [Enzymatic activity/volume] in Serum or PlasmaOrdered By: Mick Branch on 36-85-7584YJV [Catalytic activity/Vol]Aspartate aminotransferase [Enzymatic activity/volume] in Serum or RqwboqSjwv87-99 [facility] Medical CenterBilirubin.total [Mass/volume] in Serum or PlasmaOrdered By: Mick Branch on 21-25-1835Mbopjuund [Mass/Vol]Bilirubin.total [Mass/volume] in Serum or Plasma0.3-1.0[facility] Medical CenterCalcium [Mass/volume] in Serum or PlasmaOrdered By: Mick Branch on 97-59-0074Czxkqqw [Mass/Vol]Calcium [Mass/volume] in Serum or Plasma8.6-10.3FHolzer Medical Center – JacksonCarbon dioxide, total [Moles/volume] in Serum or PlasmaOrdered By: Mick Branch on 27-12-0519CF1 [Moles/Vol]Carbon dioxide, total [Moles/volume] in Serum or KslintKiou60.0-31.0[facility] Medical CenterChloride [Moles/volume] in Serum or PlasmaOrdered By: Mick Branch on 71-20-7971Kzcobkzd [Moles/Vol]Chloride [Moles/volume] in Serum or HnscgcPpbr57-051JzdbygimvCommunity Regional Medical CenterCholesterol [Mass/volume] in Serum or PlasmaOrdered By: Mick Branch on 38-65-4027Dhqdizzombt [Mass/Vol]Cholesterol [Mass/volume] in Serum or Swxcsa560-250TakaanqotCommunity Regional Medical CenterComment on above:Chol less than 200 mg/dl low riskChol 201-239 mg/dl borderline riskChol 240 mg/dl and greater high riskCholesterol in HDL [Mass/volume] in Serum or PlasmaOrdered By: Mick Branch on 16-09-8858Jcyjuvzaciz in HDL [Mass/Vol]Serum or plasma high density lipoprotein (HDL) cholesterol xyunekgoyzw75-53QuslpxkuiCommunity Regional Medical CenterComment on above:HDL CHOL ATP-III CLASSIFICATION Cardiovascular RiskHDL > or equal to 60 mg/dL LOWHDL < 40 mg/dL HIGHCholesterol in LDL Calc [Mass/Vol] Ordered By: Mick Branch on 08-46-7220Muaztfhtlji in LDL [Mass/Vol]Cholesterol in LDL [Mass/volume] in Serum or Plasma by calculationCommunity Regional Medical CenterComment on above:LDL ATP III CLASSIFICATIONLDL less than 100 mg/dL OptimalLDL 100-129 mg/dL Near or above oyqvtzkBXU900-560 mg/dL Borderline highLDL 160-189 mg/dL HighLDL greater than 189 mg/dL Very highCholesterol in VLDL Calc [Mass/Vol]Ordered By: Mick Branch on 50-00-2308Odxfvssnwdd in VLDL [Mass/Vol]Cholesterol in VLDL [Mass/volume] in Serum or Plasma by calculation [facility] Medical CenterComprehensive Metabolic Panelon 04-30-2024 Albumin [Mass/Vol]3.5 g/dLNormal3.5-5.7The [facility] Physician GroupComment on above:Performed By: #### LIPID, PSAS, TSH3 wRFLX, CMP, PT #### [place] [address] [place] #### AFPTM #### [facility] ,Albumin/Globulin [Mass ratio]1.3 {ratio}NormalThe [facility] Physician Group Comment on above:Performed By: #### LIPID, PSAS, TSH3 wRFLX, CMP, PT #### [facility] [address] [place] [address] [place] #### AFPTM #### [facility] ,ALP [Catalytic activity/Vol]122 U/YKzyf80-811Ixk [facility] Physician Group Comment on above:Performed By: #### LIPID, PSAS, TSH3 wRFLX, CMP, PT #### [facility] [address] [place] [address] [place] #### AFPTM #### [facility] ,ALT [Catalytic activity/Vol]40 U/LNormal7-52The [facility] Physician Group Comment on above:Performed By: #### LIPID, PSAS, TSH3 wRFLX, CMP, PT #### [facility] [address] [place] [address] [place] #### AFPTM #### [facility] ,Anion gap [Moles/Vol]4.9 mmol/LLow6.0-15.0The [facility] Physician GroupComment on above:Performed By: #### LIPID, PSAS, TSH3 wRFLX, CMP, PT #### [facility] [address] [place] [address] [place] #### AFPTM #### [facility] ,AST [Catalytic activity/Vol]46 U/BGhhq06-03Qdy [facility] Physician GroupComment on above:Performed By: #### LIPID, PSAS, TSH3 wRFLX, CMP, PT #### [facility] [address] [place] [address] [place] #### AFPTM #### [facility] ,Bilirubin [Mass/Vol]0.7 mg/dLNormal0.3-1.0The [facility] Physician GroupComment on above:Performed By: #### LIPID, PSAS, TSH3 wRFLX, CMP, PT #### [facility] [address] [place] [address] [place] #### AFPTM #### [facility] ,Calcium [Mass/Vol]8.8 mg/dLNormal8.6-10.3The [facility] Physician GroupComment on above:Performed By: #### LIPID, PSAS, TSH3 wRFLX, CMP, PT #### [facility] [address] [place] [address] [place] #### AFPTM #### [facility] ,Chloride [Moles/Vol]109 mmol/KEkjv42-756Jsk [facility] Physician GroupComment on above:Performed By: #### LIPID, PSAS, TSH3 wRFLX, CMP, PT #### [facility] [address] [place] [address] [place] #### AFPTM #### [facility] ,CO2 [Moles/Vol]31.4 mmol/LHigh21.0-31.0The [facility] Physician GroupComment on above:Performed By: #### LIPID, PSAS, TSH3 wRFLX, CMP, PT #### [facility] [address] [place] [address] [place] #### AFPTM #### [facility] ,Creatinine [Mass/Vol]0.91 mg/dLNormal0.70-1.30The [facility] Physician Group Comment on above:Performed By: #### LIPID, PSAS, TSH3 wRFLX, CMP, PT #### [facility] [address] [place] [address] [place] #### AFPTM #### [facility] ,GFR/1.73 sq M.predicted MDRD (S/P/Bld) [Vol rate/Area]mL/min/{1.73_m2}NormalThe [facility] Physician GroupComment on above:Performed By: #### LIPID, PSAS, TSH3 wRFLX, CMP, PT #### [facility] [address] [place] [address] [place] #### AFPTM #### [facility] ,Globulin (S) [Mass/Vol]2.7 g/dLNormalThe [facility] Physician GroupComment on above:Performed By: #### LIPID, PSAS, TSH3 wRFLX, CMP, PT #### [facility] [address] [place] [address] [place] #### AFPTM #### [facility] ,Glucose [Mass/Vol]82 mg/lBBudphg93-892Qde [facility] Physician GroupComment on above:Result Comment: Random Glucose Reference Range is dependent on time and content of last meal. Glucose of more than 200 mg/dL in a nonstressed, ambulatory subject supports the diagnosis of Diabetes Mellitus. ADA recommended reference rangePerformed By: #### LIPID, PSAS, TSH3 wRFLX, CMP, PT #### [place] [address] [place] #### AFPTM #### [facility] ,Potassium [Moles/Vol]4.3 mmol/LNormal3.5-5.1The [facility] Physician Group Comment on above:Performed By: #### LIPID, PSAS, TSH3 wRFLX, CMP, PT #### [facility] [address] [place] [address] [place] #### AFPTM #### [facility] ,Protein [Mass/Vol]6.2 g/dLLow6.4-8.9The [facility] Physician GroupComment on above:Performed By: #### LIPID, PSAS, TSH3 wRFLX, CMP, PT #### [place] [address] [place] #### AFPTM #### [facility] ,Sodium [Moles/Vol]141 mmol/DQqiuss878-302Lfp [facility] Physician GroupComment on above:Performed By: #### LIPID, PSAS, TSH3 wRFLX, CMP, PT #### [place] [address] [place] #### AFPTM #### [facility] ,Urea nitrogen [Mass/Vol]18 mg/dLNormal7-25The [facility] Physician GroupComment on above:Performed By: #### LIPID, PSAS, TSH3 wRFLX, CMP, PT #### [facility] [address] [place] [address] [place] #### AFPTM #### [facility] ,Creatinine [Mass/volume] in Serum or PlasmaOrdered By: Mick Branch on 93-94-0642Tliualqord [Mass/Vol]Creatinine [Mass/volume] in Serum or Plasma 0.70-1.30Community Regional Medical CenterGlobulin Calc (S) [Mass/Vol]Ordered By: Mick Branch on 93-98-0653Cqvftkgr (S) [Mass/Vol]Serum globulin measurement by calculation (mass/volume)[facility] Medical CenterGlucose [Mass/volume] in Serum or PlasmaOrdered By: Mick Branch on 42-61-2026Qrvicxj [Mass/Vol]Glucose [Mass/volume] in Serum or Oentai71-151RhaabrjxwCommunity Regional Medical CenterComment on above:ADA recommended reference rangeRandom Glucose Reference Range is dependent on time and content of last meal. Glucose of more than 200 mg/dL in a nonstressed, ambulatory subject supports the diagnosisof Diabetes Mellitus.INR in Platelet poor plasma by Coagulation assayOrdered By: Mick Branch on 41-29-6115JZJ Coag (PPP) [Relative time]INR in Platelet poor plasma by Coagulation assayCommunity Regional Medical CenterComment on above:INR Therapeutic Range A) Pre- and Peroperative OAT started two weeks before surgery. NOT HIP SURGERY: 1.5 - 2.5 HIP SURGERY: 2 - 3B) Primary and secondary prevention of venous THROMBOSIS: 2 - 3C) Active venous thrombosis, pulmonary embolismand prevention of recurrent venous thrombosis: 2 - 3D) Prevention of arterial thromboembolismincluding patients with mechanical heart valves: 3 - 4.5Lipid Panelon 61-61-5139Xgnibvzxile [Mass/Vol]142 mg/eLPjkjrg503-293Rtw [facility] Physician GroupComment on above:Result Comment: Chol less than 200 mg/dl low risk Chol 201-239 mg/dl borderline risk Chol 240 mg/dl and greater high riskPerformed By: #### LIPID, PSAS, TSH3 wRFLX, CMP, PT #### [facility] [address] #### AFPTM #### [facility] ,Cholesterol in HDL [Mass/Vol]42 mg/wGJntjog88-66Tue [facility] Physician Group Comment on above:Result Comment: HDL CHOL ATP-III CLASSIFICATION Cardiovascular Risk HDL > or equal to 60 mg/dL LOW HDL < 40 mg/dL HIGHPerformed By: #### LIPID, PSAS, TSH3 wRFLX, CMP, PT #### [facility] [address] [place] [address] [place] #### AFPTM #### [facility] ,Cholesterol.total/Cholesterol in HDL [Mass ratio]3.4 {ratio}Normal<5.0The [facility] Physician GroupComment on above:Performed By: #### LIPID, PSAS, TSH3 wRFLX, CMP, PT #### [facility] [address] [place] [address] [place] #### AFPTM #### [facility] ,LDL Cholesterol,Gmupmfdjec62 mg/dLNormal0-100The [facility] Physician Group Comment on above:Result Comment: LDL ATP III CLASSIFICATION LDL less than 100 mg/dL Optimal LDL 100-129 mg/dL Near or above optimal LDL 130-159 mg/dL Borderline high LDL 160-189 mg/dL High LDL greater than 189 mg/dL Very highPerformed By: #### LIPID, PSAS, TSH3 wRFLX, CMP, PT #### [place] [address] [place] #### AFPTM #### [facility] ,Triglyceride w/Xghslb445 mg/dLHigh0-149The [facility] Physician GroupComment on above:Result Comment: TRIG ATP III CLASSIFICATION TRIG less than 150 mg/dL Normal TRIG 150-199 mg/dL Borderline high TRIG 200-500 mg/dL High TRIG greater than 500 mg/dL Very high Standard traceable to the Center for Disease Conrtrol and Prevention (CDC) test method.Performed By: #### LIPID, PSAS, TSH3 wRFLX, CMP, PT #### [facility] [address] [place] [address] [place] #### AFPTM #### [facility] ,VLDL KBVDSKRQQKW71 mg/dLNormalThe [facility] Physician GroupComment on above: Performed By: #### LIPID, PSAS, TSH3 wRFLX, CMP, PT #### [facility] [address] [place] [address] [place] #### AFPTM #### [facility] ,No Panel InformationOrdered By: Mick Branch on 46-76-1938Lfidzatfp GFR (CKD-EPI)> 60.0 mL/MinCommunity Regional Medical CenterPharmacy Creatinine Clearance (ChemN/AFHolzer Medical Center – JacksonPSA Screen (Yearly Only)on 85-84-2627AKB Screen (Yearly Only)0.600 ng/mLNormal0.000-4.000The [facility] Physician GroupComment on above:Result Comment: Serial tumor marker results determined by assays using different manufacturers or methods may not be comparable. [facility] player development manager and method: [employer] COEL DXI, CHEMILUMINESCENT IMMUNOASSAY. PERFORMED BY: [place] [address] PATHOLOGIST LEARNING AND DEVELOPMENT SPECIALIST LUCIUS IRELAND M.D.Performed By: #### LIPID, PSAS, TSH3 wRFLX, CMP, PT #### [address] #### AFPTM #### [facility] ,Potassium [Moles/volume] in Serum or PlasmaOrdered By: Mick Branch on 25-80-6599Swapymbxw [Moles/Vol]Potassium [Moles/volume] in Serum or Plasma 3.5-5.1FHolzer Medical Center – JacksonProstate specific Ag [Mass/volume] in Serum or PlasmaOrdered By: Mick Branch on 06-29-7569Mbebxdqc specific Ag [Mass/Vol]Prostate specific Ag [Mass/volume] in Serum or Plasma0.000-4.000 [facility] CenterComment on above:Serial tumor marker results determined by assays using different manufacturers or methods may not be comparable.[facility] Laboratory player development manager and method:[employer] COEL DXI, CHEMILUMINESCENT IMMUNOASSAY.Protein [Mass/volume] in Serum or PlasmaOrdered By: Mick Branch on 99-68-7440Fltzhyq [Mass/Vol]Protein [Mass/volume] in Serum or PlasmaLow6.4-8.9[facility] Medical CenterProthrombin Time INRon 38-40-5827FOA Coag (PPP) [Relative time]1.2 {INR}NormalThe [facility] Physician GroupComment on above:Result Comment: INR Therapeutic Range A) Pre- and [...] heart valves: 3 - 4.5 PERFORMED BY: [place] [address] PATHOLOGIST LEARNING AND DEVELOPMENT SPECIALIST LUCIUS IRELAND M.D.Performed By: #### LIPID, PSAS, TSH3 wRFLX, CMP, PT #### [address] #### AFPTM #### [facility] ,PT Coag (PPP) [Time]13.8 sHigh9.0-12.9The [facility] Physician GroupComment on above:Result Comment: A hematocrit value greater than 55% may lead to inaccurate results in coagulation testing. Patients having hematocrit values >55% require a special collection tube for coagulation studies. Please contact the laboratory at [phone] for redraw instructions.Performed By: #### LIPID, PSAS, TSH3 wRFLX, CMP, PT #### [address] #### AFPTM #### [facility] ,Prothrombin time (PT)Ordered By: Mick Branch on 57-06-6771MI Coag (PPP) [Time]Prothrombin time (PT)High9.0-12.9[facility] Medical CenterComment on above:A hematocrit value greater than 55% may lead to inaccurate results in coagulation testing. Patientshaving hematocrit values >55% require a special collection tube for coagulation studies. Please contact the laboratory at [phone] for redraw instructions.Serum or plasma albumin/globulin mass ratio Ordered By: Mick Bracnh on 18-32-1569Rtfkihi/Globulin [Mass ratio]Serum or plasma albumin/globulin mass ratioGalion Community Hospitalerum or plasma mabzi-5-ofzgydjbotl tumor marker measurement (mass/volume)Ordered By: Mick Branch on 15-43-5847FRF.tumor marker [Mass/Vol]Serum or plasma vnqon-7-znomkgiqgzt tumor marker measurement (mass/volume)0.0-8.4FHolzer Medical Center – JacksonComment on above:[facility] Electrochemiluminescence Immunoassay(ECLIA)Values obtained with different assay methods or kits cannotbe used interchangeably. Results cannot be interpreted asabsolute evidence of the presence or absence of malignantdisease.This test is not interpretable in females.Performed at: [facility] [address] [id number] Director: Charlie Klein PhD, Phone: [phone] or plasma anion gap determinationOrdered By: Mick Branch on 78-35-7023Ctikp gap [Moles/Vol]Serum or plasma anion gap determinationLow 6.0-15.0Galion Community Hospitalerum or plasma total cholesterol/high density lipoprotein (HDL) cholesterol mass ratOrdered By: Mick Branch on 40-26-0100Xdpbpqgdbjr.total/Cholesterol in HDL [Mass ratio]Serum or plasma total cholesterol/high density lipoprotein (HDL) cholesterol mass rat<5.0Galion Community Hospitalodium [Moles/volume] in Serum or PlasmaOrdered By: Mick Branch on 45-29-4117Yrqaoc [Moles/Vol]Sodium [Moles/volume] in Serum or Uqsgcw797-257LawqhdufcCommunity Regional Medical CenterThyroid Stim Hormone w/Rflxon 62-02-9903Kekhvhg Stim Hormone w/Rflx3.07 u[iU]/mLNormal0.45-5.33The [facility] Physician GroupComment on above:Result Comment: PERFORMED BY: [place] [address] PATHOLOGIST LEARNING AND DEVELOPMENT SPECIALIST LUCIUS IRELAND M.D.Performed By: #### LIPID, PSAS, TSH3 wRFLX, CMP, PT #### [place] [address] [place] #### AFPTM #### [facility] ,Thyrotropin [Units/volume] in Serum or PlasmaOrdered By: Mick Branch on 86-37-1943YFB QnThyrotropin [Units/volume] in Serum or Plasma0.45-5.33[facility] Medical CenterTriglyceride [Mass/volume] in Serum or PlasmaOrdered By: Mick Branch on 07-48-5627Pfixtuymomnu [Mass/Vol]Triglyceride [Mass/volume] in Serum or PlasmaHigh0-149[facility] CenterComment on above:TRIG ATP III CLASSIFICATIONTRIG less than 150 mg/dL NormalTRIG 150-199 mg/dL Borderline highTRIG 200-500 mg/dL High TRIG greater than 500 mg/dL Very highStandard traceable to the Center for Disease Conrtrol and Prevention (CDC) test method.Urea nitrogen [Mass/volume] in Serum or PlasmaOrdered By: Mick Branch on 59-46-0495Cxnk nitrogen [Mass/Vol]Urea nitrogen [Mass/volume] in Serum or Plasma7-25[facility] CenterALL CBC WITH AUTO DIFFon 66-21-1641Ekbvjxedufe distribution width (RBC) [Ratio]13.6 %11.0 - 15.0 %[facility] CenterHematocrit (Bld) [Volume fraction]40 %Low42.0 - 54.0 %[facility] Hemoglobin (Bld) [Mass/Vol]13 g/dLLow14.0 - 18.0 g/dLMissouri Delta Medical Center Interpretation and review of laboratory resultsAbnormalNortheast [facility] (RBC) [Entitic mass]31.6 pg25.9 - 34.0 pgWestern Missouri Mental Health CenterHC (RBC) [Mass/Vol]32.5 g/dL 29.9 - 35.2 g/dLWestern Missouri Mental Health CenterV (RBC) [Entitic vol]97.1 sWUupr52.0 - 94.0 fL [facility] CenterPlatelet mean volume (Bld) [Entitic vol]11.1 fL9.5 - 13.5 fLRanken Jordan Pediatric Specialty Hospital RKY53KyvJFKANevada Regional Medical Center RBC4.12LowRanken Jordan Pediatric Specialty Hospital WBC4.9[facility] CenterCLINISYNCNOMS River[facility] InstituteECG 12 Leadon 76-78-4116Tmtsn bradycardia, PVC, sinus arrhythmia, anterolateral ID age-indeterminate, abnormal ECGUnUniversity Hospitals Lake West Medical Center Work Phone: UnUniversity Hospitals Lake West Medical Center Work Phone: aLL CBC WITH AUTO DIFFon 95-94-6745Ksqtxbeugii distribution width (RBC) [Ratio]18.3 %High11.0 - 15.0 %[facility] HealthcareHematocrit (Bld) [Volume fraction]38.3 %Low42.0 - 54.0 %[facility] HealthcareHemoglobin (Bld) [Mass/Vol]12.2 g/dLLow14.0 - 18.0 g/dLMissouri Delta Medical CenterInterpretation and review of laboratory resultsAbnormalNortheast Missouri [facility] (RBC) [Entitic mass]29.5 pg25.9 - 34.0 pgWestern Missouri Mental Health CenterHC (RBC) [Mass/Vol]31.9 g/dL29.9 - 35.2 g/dLWestern Missouri Mental Health CenterV (RBC) [Entitic vol]92.5 fL80.0 - 94.0 fLMissouri Delta Medical CenterPlatelet mean volume (Bld) [Entitic vol]11.1 fL9.5 - 13.5 fLRanken Jordan Pediatric Specialty Hospital OTU58Ryf [facility] RBC4.14LowRanken Jordan Pediatric [facility] Hospital WBC3.1LRanken [facility] Hospital CLINISYNCMissouri Delta Medical CenterNo Panel InformationOrdered By: Mick Branch on 31-13-7869Zibbnypwthqgu Pathology TestSee commentCommunity Regional Medical CenterComment on above:See report. Scanned copy available in EMR.Alanine aminotransferase [Enzymatic activity/volume] in Serum or PlasmaOrdered By: Mick Branch on 45-20-6383GYL [Catalytic activity/Vol]43 U/L7-52[facility] CenterAlbumin [Mass/volume] in Serum or Plasma by Bromocresol green (BCG) dye binding methoOrdered By: Mick Branch on 96-04-8196Reanqjl BCG dye [Mass/Vol]3.9 g/dL3.5-5.7FHolzer Medical Center – JacksonAlkaline phosphatase [Enzymatic activity/volume] in Serum or PlasmaOrdered By: Mick Branch on 61-30-4084HNA [Catalytic activity/Vol]138 U/IAndi03-046SyrpditjvCommunity Regional Medical CenterAnisocytosis LM Ql (Bld)Ordered By: Mick Branch on 46-89-2111Jkxhtxbojmlr Ql (Bld)SlightCommunity Regional Medical CenterAspartate aminotransferase [Enzymatic activity/volume] in Serum or PlasmaOrdered By: Mick Branch on 74-56-4463ZDZ [Catalytic activity/Vol]49 U/DXxzx28-35ObrkizoujCommunity Regional Medical CenterBand form neutrophils/100 WBC Manual cnt (Bld)Ordered By: Mick Branch on 34-68-1618Cexr form neutrophils/100 WBC (Bld)1 %0-5FHolzer Medical Center – JacksonBasophils Auto (Bld) [#/Vol]Ordered By: Mick Branch on 35-13-3321Uxxyiltha (Bld) [#/Vol]N/[facility] Basophils/100 WBC Auto (Bld)Ordered By: Mick Branch on 47-19-9776Rinbdvhzp/100 WBC (Bld)N/[facility]HealthBilirubin.total [Mass/volume] in Serum or PlasmaOrdered By: Mick Branch on 85-97-5514Daohycqve [Mass/Vol]0.6 mg/dL0.3-1.0[facility] CenterCalcium [Mass/volume] in Serum or PlasmaOrdered By: Mick Branch on 42-78-6692Ubajcsu [Mass/Vol]8.8 mg/dL8.6-10.3 [facility] CenterCarbon dioxide, total [Moles/volume] in Serum or PlasmaOrdered By: Mick Branch on 68-21-3758MB7 [Moles/Vol]27.5 mmol/L 21.0-31.0[facility] CenterChloride [Moles/volume] in Serum or PlasmaOrdered By: Mick Branch on 46-11-1213Yvmjfedc [Moles/Vol]111 mmol/LHigh 98-107[facility] CenterCreatinine [Mass/volume] in Serum or PlasmaOrdered By: Mick Branch on 01-42-3039Lvvsxyhdia [Mass/Vol]0.94 mg/dL 0.70-1.30[facility] CenterEosinophils Auto (Bld) [#/Vol]Ordered By: Mick Branch on 90-65-9448Kqcwehxfmrp (Bld) [#/Vol]N/OhioHealthEosinophils/100 WBC Auto (Bld)Ordered By: Mick Branch on 56-79-4089Tntjtplmtjx/100 WBC (Bld)N/[facility] Eosinophils/100 WBC Manual cnt (Bld)Ordered By: Mick Branch on 09-17-2023 Eosinophils/100 WBC (Bld)4 %High1-3FHolzer Medical Center – JacksonErythrocyte distribution width Auto (RBC) [Ratio]Ordered By: Mick Branch on 09-17-2023 Erythrocyte distribution width (RBC) [Ratio]17.4 %High12.0-14.8[facility] Medical CenterFerritin [Mass/volume] in Serum or PlasmaOrdered By: Mick Branch on 12-92-5118Vhapwzfu [Mass/Vol]23.4 ng/mLLow23.9-336.2FHolzer Medical Center – JacksonGlobulin Calc (S) [Mass/Vol]Ordered By: Mick Branch on 24-47-9485Hvfthqcw (S) [Mass/Vol]2.7 g/dLCommunity Regional Medical Center Glucose [Mass/volume] in Serum or PlasmaOrdered By: Mick Branch on 09-17-2023 Glucose [Mass/Vol]78 mg/kM89-407ErsmgggvoCommunity Regional Medical CenterComment on above:ADA recommended reference rangeRandom Glucose Reference Range is dependent on time and content of last meal. Glucose of more than 200 mg/dL in a nonstressed, ambulatory subject supports the diagnosisof Diabetes Mellitus. Hematocrit Auto (Bld) [Volume fraction]Ordered By: Mick Branch on 09-17-2023 Hematocrit (Bld) [Volume fraction]37.4 %Low38.8-50.0[facility] CenterHemoglobin [Mass/volume] in BloodOrdered By: Mick Branch on 09-17-2023 Hemoglobin (Bld) [Mass/Vol]12.1 g/dLLow13.0-17.0[facility] Medical CenterINR in Platelet poor plasma by Coagulation assayOrdered By: Mick Branch on 36-56-1066ELG Coag (PPP) [Relative time]1.1 {INR}[facility] Medical CenterComment on above:INR Therapeutic Range A) Pre- and Peroperative OAT started two weeks before surgery. NOT HIP SURGERY: 1.5 - 2.5 HIP SURGERY: 2 - 3B) Primary and secondary prevention of venous THROMBOSIS: 2 - 3C) Active venous thrombosis, pulmonary embolismand prevention of recurrent venous thrombosis: 2 - 3D) Prevention of arterial thromboembolismincluding patients with mechanical heart valves: 3 - 4.5Iron [Mass/volume] in Serum or PlasmaOrdered By: Mick Branch on 29-63-4651Juir [Mass/Vol]52 ug/zL23-659RvyhglfdkCommunity Regional Medical CenterIron binding capacity [Mass/volume] in Serum or PlasmaOrdered By: Mick Branch on 35-99-7373Xqlt binding capacity [Mass/Vol]496 ug/aYUyma960-927XyyhhqiybCommunity Regional Medical CenterIron saturation [Mass Fraction] in Serum or Plasma Ordered By: Mikc Branch on 71-57-5311Xqjc saturation [Mass fraction]10.5 %Low 20-50[facility] Medical CenterLeukocytes [#/volume] corrected for nucleated erythrocytes in Blood by Automated counOrdered By: Mick Branch on 09-56-7120TQW corrected for nucl RBC Auto (Bld) [#/Vol]3.2 10*3/uLLow4.1-10.5 [facility] CenterLymphocytes Auto (Bld) [#/Vol]Ordered By: Mick Branch on 26-17-2094Uspjjrkuqbu (Bld) [#/Vol]N/[facility]HealthLymphocytes/100 WBC Auto (Bld)Ordered By: Mick Branch on 42-69-4799Aqjxdpdlxdx/100 WBC (Bld)N/[facility] Lymphocytes/100 WBC Manual cnt (Bld)Ordered By: Mick Branch on 09-17-2023 Lymphocytes/100 WBC (Bld)25 %18-42[facility] Medical CenterMCH Auto (RBC) [Entitic mass]Ordered By: Mick Branch on 70-92-5706ZQY (RBC) [Entitic mass]27.4 pgLow27.5-35.2FHolzer Medical Center – JacksonMCHC Auto (RBC) [Mass/Vol]Ordered By: Mick Branch on 31-80-2312QXFS (RBC) [Mass/Vol]32.2 g/dL Low32.5-35.6FHolzer Medical Center – JacksonMCV Auto (RBC) [Entitic vol]Ordered By: Mick Branch on 33-80-7383TLM (RBC) [Entitic vol]85.0 fL83.5-101[facility] CenterMacrocytes LM Ql (Bld)Ordered By: Mick Branch on 91-19-0952Nubzrwvakw Ql (Bld)SlightCommunity Regional Medical CenterMicrocytes LM Ql (Bld)Ordered By: Mick Branch on 00-88-8384Rgrpveowqn Ql (Bld)[facility] Oste[facility] ClinicMonocytes Auto (Bld) [#/Vol]Ordered By: Mick Branch on 52-17-3818Plvihepvn (Bld) [#/Vol]N/[facility] Monocytes/100 WBC Auto (Bld)Ordered By: Mick Branch on 36-26-9314Vfteggotj/100 WBC (Bld)N/OhioHealthMonocytes/100 WBC Manual cnt (Bld) Ordered By: Mick Branch on 43-95-5749Akhcqbevu/100 WBC (Bld)8 %2-11[facility] Medical CenterNeutrophils Auto (Bld) [#/Vol]Ordered By: Mick Branch on 18-77-0840Ijbvzjanoan (Bld) [#/Vol]N/[facility] Neutrophils/100 WBC Auto (Bld)Ordered By: Mick Branch on 09-17-2023 Neutrophils/100 WBC (Bld)N/[facility]HealthNo Panel InformationOrdered By: Mick Branch on 97-68-6752Uwfxtejan GFR (CKD-EPI)> 60.0 mL/MinCommunity Regional Medical CenterPharmacy Creatinine Clearance (ChemN/A [facility] CenterNucleated erythrocytes [Presence] in Blood by Automated countOrdered By: Mick Branch on 42-04-5701Wjgzeamsa RBC Auto Ql (Bld)N/AFHolzer Medical Center – JacksonOvalocyte detectionOrdered By: Mick Branch on 22-67-5648Gwzowwraat LM Ql (Bld)[facility] Platelet adequacy [Presence] in Blood by Light microscopyOrdered By: Mick Branch on 53-49-6479Ddlysblrr LM Ql (Bld)DecreasedNormParkview HealthPlatelet mean volume Auto (Bld) [Entitic vol]Ordered By: Mick Branch on 52-63-6484Avxvqaxk mean volume (Bld) [Entitic vol]8.9 fL6.6-10.1 [facility] Medical CenterPlatelet morphology finding [Identifier] in BloodOrdered By: Mick Branch on 52-90-4266Bqcjqely morphology finding Nom (Bld)NormalNormParkview HealthPlatelets Auto (Bld) [#/Vol] Ordered By: Mick Branch on 80-09-0938Pffusoslv (Bld) [#/Vol]112 10*3/uLLow 150-450[facility] Medical CenterPoikilocytosis [Presence] in Blood by Light microscopyOrdered By: Mick Branch on 46-47-8273Zhvneudsxevgfe LM Ql (Bld)[facility] HospitalPotassium [Moles/volume] in Serum or PlasmaOrdered By: Mick Branch on 98-74-3250Xxdzalpwt [Moles/Vol]4.3 mmol/L 3.5-5.1FHolzer Medical Center – JacksonProtein [Mass/volume] in Serum or Plasma Ordered By: Mick Branch on 66-16-0719Oqnbbrs [Mass/Vol]6.6 g/dL6.4-8.9 [facility] CenterProthrombin time (PT)Ordered By: Mick Branch on 29-02-7376NT Coag (PPP) [Time]13.1 sHigh9.0-12.9[facility] CenterComment on above:A hematocrit value greater than 55% may lead to inaccurate results in coagulation testing. Patientshaving hematocrit values >55% require a special collection tube for coagulation studies. Please contact the laboratory at [phone] for redraw instructions.RBC Auto (Bld) [#/Vol]Ordered By: Mick Branch on 23-55-2679GET (Bld) [#/Vol]4.40 10*6/uL3.90-5.60[facility] Medical CenterRBC morphologyOrdered By: Mick Branch on 04-28-3024DDT morphology finding Nom (Bld)N/AFCleveland Clinic Mentor Hospitalegmented neutrophils/100 WBC Manual cnt (Bld)Ordered By: Mick Branch on 09-17-2023 Segmented neutrophils/100 WBC (Bld)63 %50-70[facility] Serum or plasma albumin/globulin mass ratioOrdered By: Mick Branch on 87-13-2436Izwxzyg/Globulin [Mass ratio]1.4 {ratio}[facility] Community Hospitalerum or plasma bohyq-3-ombxaeujqbs tumor marker measurement (mass/volume) Ordered By: Mick Branch on 76-34-1783BRL.tumor marker [Mass/Vol]3.0 ng/mL 0.0-8.4FHolzer Medical Center – JacksonComment on above:[facility] Electrochemiluminescence Immunoassay(ECLIA)Values obtained with different assay methods or kits cannotbe used interchangeably. Results cannot be interpreted asabsolute evidence of the presence or absence of malignantdisease.This test is not interpretable in females.Performed at: [address] [id number] Director: Charlie Klein PhD, Phone: [phone] or plasma anion gap determinationOrdered By: Mick Branch on 97-33-8493Ggsaq gap [Moles/Vol]8.8 mmol/L6.0-15.0[facility] Community Hospitalodium [Moles/volume] in Serum or PlasmaOrdered By: Mick Branch on 51-30-7252Wzyofr [Moles/Vol]143 mmol/F438-225DkmivugugCommunity Regional Medical Center Transferrin [Mass/volume] in Serum or PlasmaOrdered By: Mick Branch on 41-11-4497Qiuicvstand [Mass/Vol]354 mg/xM462-504LtgobyfncCommunity Regional Medical CenterUrea nitrogen [Mass/volume] in Serum or PlasmaOrdered By: Mick Branch on 92-58-6040Kkno nitrogen [Mass/Vol]20 mg/dL10-16[facility] WBC Auto (Bld) [#/Vol]Ordered By: Mick Branch on 84-76-0655TSA (Bld) [#/Vol] 3.4 10*3/uLLow4.1-10.5FHolzer Medical Center – JacksonECG 12 Leadon 06-20-2023 Sinus rhythm, rightward axis, bigeminal PVCs, anteroseptal infarction pattern age indeterminant, abnormal ECGCPACSSelect Medical [facility] Work Phone: albumin [Mass/volume] in Serum or PlasmaOrdered By: Zoila Castorena on 27-78-6221Ocyrpjr [Mass/Vol]3.0 g/dL2.9-4.4FHolzer Medical Center – JacksonFolate [Mass/volume] in Serum or PlasmaOrdered By: Zoila Castorena on 49-23-8070Inpvqi [Mass/Vol]40.0 ng/mL>5.9[facility] Comment on above:Folate reference range: >5.9 ng/mlThe WHO technical consultation on folate and vitamin z25lsxgtgfxciun has determined that folate concentrations lessthan 4 ng/ml are considered deficient.Haptoglobin [Mass/volume] in Serum or PlasmaOrdered By: Zoila Castorena on 20-58-5231Mpszflekfqr [Mass/Vol]58 mg/vI40-785YaslmplwfCommunity Regional Medical CenterLactate dehydrogenase [Enzymatic activity/volume] in Serum or Plasma by Lactate to pyOrdered By: Zoila Castorena on 74-39-6439UUD Lactate to pyruvate reaction [Catalytic activity/Vol]221 U/W852-465YwuerikhlCommunity Regional Medical CenterNo Panel InformationOrdered By: Zoila Castorena on 53-86-0194Yeeltpp Electrophoresis M-SpikeNot observed g/dLNot Observed [facility] CenterProtein Electrophoresis NoteSee comment. [facility] Medical CenterComment on above:Protein electrophoresis scan will follow via computer,mail, or tactical air defense controller delivery.Performed at: [facility] [employer] [place], [place] [id number] Director: Charlie Klein PhD, Phone: [phone] [Mass/volume] in Serum or PlasmaOrdered By: Zoila Castorena on 69-02-3669Jygaqgp [Mass/Vol]6.0 g/dL6.0-8.5FHolzer Medical Center – Jackson Serum globulin measurement (mass/volume)Ordered By: Zoila Castorena on 08-08-2022 Globulin (S) [Mass/Vol]3.0 g/dL2.2-3.9Galion Community Hospitalerum or plasma albumin/globulin mass ratioOrdered By: Zoila Castorena on 08-08-2022 Albumin/Globulin [Mass ratio]1.0 {ratio}0.7-1.7FHolzer Medical Center – Jackson Serum or plasma alpha 1 globulin measurement by electrophoresis (mass/volume) Ordered By: Zoila Castorena on 95-14-8920Tpsge 1 globulin Elph [Mass/Vol]0.2 g/dL 0.0-0.4FCleveland Clinic Mentor Hospitalerum or plasma alpha 2 globulin measurement by electrophoresis (mass/volume)Ordered By: Zoila Castorena on 08-08-2022 Alpha 2 globulin Elph [Mass/Vol]0.7 g/dL0.4-1.0[facility] Serum or plasma beta globulin measurement by electrophoresis (mass/volume) Ordered By: Zoila Castorena on 74-51-8103Zofk globulin Elph [Mass/Vol]1.2 g/dL0.7-1.3 [facility] Community Hospitalerum or plasma gamma globulin measurement by electrophoresis (mass/volume)Ordered By: Zoila Castorena on 36-61-0951Xcfjq globulin Elph [Mass/Vol]1.0 g/dL0.4-1.8[facility] Medical CenterVitamin B12 ser/plasOrdered By: Zoila Castorena on 35-36-3657Ronyofohi (Vitamin B12) [Mass/Vol]481 pg/kV353-466TydxuqyooCommunity Regional Medical CenterECHOCARDIO M/2D COMPLETEon 71-11-1344YOIEGYEGKM M/2D COMPLETEPatient: PANKAJ PAYNE Exam Date: 11/08/2021 : 1945 Gender:M Ordering : DR KARL MENON M.D. Admission #: [id number] Family : DR HANDEL JARVIS Trujillo Order #: [id number] CLICK HERE TO VIEW EXAM ECHOCARDIOGRAM REPORT [...] by: Karl Menon M.D. on 11/08/2021 at 16:55[facility] TroyCreatinine and Glomerular filtration rate.predicted panel (S/P/Bld) Ordered By: Frantz Conley on 87-57-0749Bvzoxefpak [Mass/Vol]1.11 mg/dL0.64-1.27 [facility] CenterEstimated glomerular filtration rate (GFR) non- AmericanOrdered By: Frantz Conley on 70-75-4476CMU/1.73 sq M.predicted among non-blacks MDRD (S/P/Bld) [Vol rate/Area]> 60 mL/MinCommunity Regional Medical CenterNo Panel InformationOrdered By: Frantz Conley on 10-10-2021 Estimated GFR ()> 60 mL/MinCommunity Regional Medical Center Comment on above:GFR estimated reference range: According to KDOQI guidelines, <60 ml/min/1.73m2 is sufficient todiagnose a patient with chronic kidney disease.Pharmacy Creatinine Clearance (ChemN/[facility] Serum or plasma urea nitrogen measurement (mass/volume)Ordered By: Frantz Conley on 36-66-5433Mzwr nitrogen [Mass/Vol]16 mg/dL9-23[facility] Medical CenterCOVID-19 Positive/NegativeOrdered By: Mick Branch on 09-15-2021 SARS-CoV-2 (COVID-19) N gene GÓMEZ+probe Ql (Resp)NegativeNegativeCommunity Regional Medical CenterComment on above:Testing for SARS-CoV-2 by RT-PCR This test was developed and its performance characteristics determined by [employer] ([place] and validated at the [facility]. This test has not [...] of time the declaration that circumstances exist ju stifying the authorization of the emergency use of in vitro diagnostic tests for detection of SARS-CoV-2 virus and/or diagnosis of COVID-19 infection under section 564(b)(1) of the Act, 21 U.S.C. 360bbb-3(b)(1), unless the authorization is terminated or revoked sooner.Basic Metab w/rfx MGon 08-17-2021(cont.)Normal [facility] DaytonComment on above:Result Comment: Average GFR for 70 or more years old: 75 mL/min/1.73sq m Chronic Kidney Disease: <60 mL/min/1.73sq m Kidney failure: <15 mL/min/1.73sq m eGFR calculated using average adult body mass. Additional eGFR calculator available at: http://www.HealthTell/multiple_crcl_2012.htmPerformed By: #### EMILY, BMPX #### [facility] [employer] [address] [place] [address] Equipment Washer: Tony Yanez MDAnion gap [Moles/Vol]9 mmol/LNormal9-17[facility] DaytonComment on above:Performed By: #### EMILY, BMPX #### [facility] [employer] [address] [place] [address] Equipment Washer: Tony Yanez MDCalcium [Mass/Vol]9.0 mg/dLNormal8.6-10.4[facility] DaytonComment on above:Performed By: #### EMILY, BMPX #### [facility] [employer] [address] [place] [address] Equipment Washer: Tony Yanez MDChloride [Moles/Vol]107 mmol/DMmltyp80-877HqjwlKettering Health DaytonComment on above:Performed By: #### CDP, BMPX #### [facility] [address] [place] [address] Equipment Washer: Tony Yanez MDCO2 [Moles/Vol]23 mmol/BNifxzy68-30CtkgpKettering Health DaytonComment on above:Performed By: #### CDP, BMPX #### [address] [address] Equipment Washer: GUERRERO Rayreatinine [Mass/Vol]0.83 mg/dLNormal0.70-1.20 [facility] DaytonComment on above:Performed By: #### CDP, BMPX #### [address] [address] Equipment Washer: Tony Yanez MDGFR, Amer>60Normal>60[facility] Health DaytonComment on above:Performed By: #### EMILY, BMPX #### [address] [address] Equipment Washer: YAQUELIN Ray,non Amer>60Normal>60[facility] DaytonComment on above:Performed By: #### CDP, BMPX #### [address] [address] Equipment Washer: Tony Yanez MDGlucose [Mass/Vol]91 mg/cTUqwhuo54-34VgjguShriners Hospitals for Children Northern CaliforniaComment on above:Performed By: #### CDP, BMPX #### [address] [address] Equipment Washer: Tony Yanez MDPotassium [Moles/Vol]4.3 mmol/LNormal3.7-5.3 [facility] DaytonComment on above:Performed By: #### CDP, BMPX #### [facility] [address] [place] [address] Equipment Washer: Tony Yanez MDSodium [Moles/Vol]139 mmol/JZcgyuz764-678Oaxqu Neligh Medical CenterComment on above:Performed By: #### CDP, BMPX #### [facility] [address] [place], [place] [address] Equipment Washer: Tony Yanez MDUrea nitrogen [Mass/Vol]17 mg/dLNormal8-23[facility] Health DaytonComment on above:Performed By: #### EMILY, BMPX #### [facility] [address] [place], [place] [address] Equipment Washer: Tony Yanez MDBasi Metabolic Panel w/ Reflex to MGon [id number] gap [Moles/Vol]9 mmol/L9 - 17 mmol/LBON [facility] Calcium [Mass/Vol]9.0 mg/dL8.6 - 10.4 mg/dLBON SECLang Ma HEALTHChloride [Moles/Vol]107 mmol/L98 - 107 mmol/LBON SECLang Ma HEALTHCO2 [Moles/Vol]23 mmol/L20 - 31 mmol/LBON SECVirtual Expert ClinicsCreatinine [Mass/Vol]0.83 mg/dL0.70 - 1.20 mg/dLBON SECVirtual Expert ClinicsGFR >60>60 mL/minBON ShoogerGFR Non->60>60 mL/minBON Shooger GFR/1.73 sq M.predicted MDRD (S/P/Bld) [Vol rate/Area][facility]OSPITALVirtual Expert Clinics Comment on above:Average GFR for 70 or more years old: 75 mL/min/1.73sq m Chronic Kidney Disease: <60 mL/min/1.73sq m Kidney failure: <15 mL/min/1.73sq m eGFR calculated using average adult body mass. Additional eGFR calculator available at: http://www.[employer].YouChe.com/multiple_crcl_2012.htm Glucose [Mass/Vol]91 mg/dL70 - 99 mg/dLBON SECLang Ma HEALTHPotassium [Moles/Vol]4.3 mmol/L3.7 - 5.3 mmol/LBON SECLang Ma HEALTHSodium [Moles/Vol] 139 mmol/L135 - 144 mmol/LBON [facility]IN[facility] HEALTH SYSTEMUrea nitrogen (BldV) [Mass/Vol]17 mg/dL8 - 23 mg/dLBON [facility] CBC with Auto Differentialon [id number] Eos #0.11BON SECRIVERSIDE METHODIST HOSPITALAbsolute Immature Granulocyte<0.03BON SECRIVERSIDE METHODIST HOSPITALAbsolute Lymph # 1.10BON SECRIVERSIDE METHODIST HOSPITALAbsolute [place] #0.53BON [facility]ALTH SYSTEMBasophils (Bld) [#/Vol]0.03 10*3/uLBON [facility]ALTH SYSTEMBasophils/100 WBC (Bld)1 %0 - 2 %BON [facility] HEALTH SYSTEMEosinophils/100 WBC (Bld)2 %1 - 4 %[facility] HOSPITALHematocrit (Bld) [Volume fraction]36.2 %Low40.7 - 50.3 %[facility] HOSPITALHemoglobin.gastrointestinal spec 1 Ql (Stl)12.1 g/dLLow13.0 - 17.0 g/dLBON [facility] HEALTH SYSTEMImmature granulocytes/100 WBC (Bld)0 %0[facility] HOSPITALInterpretation and review of laboratory resultsAbnormalBON [facility]IN[facility] HEALTH SYSTEMLymphocytes/100 WBC (Bld)22 %Low24 - 43 %[facility] HOSPITALH (RBC) [Entitic mass]31.1 pg25.2 - 33.5 pgBON [facility] DUBLINHC (RBC) [Mass/Vol] 33.4 g/dL28.4 - 34.8 g/dLBON [facility]HABIL[facility]ATION HOSPITAL - DUBLINV (RBC) [Entitic vol]93.1 fL 82.6 - 102.9 fLWELLMONT LONESOME PINE MT. VIEW HOSPITALMonocytes/100 WBC (Bld)11 %3 - 12 %[facility] HOSPITALNRBC Automated0.00.0 per 100 WBCWELLMONT L[facility]OME PINE [facility]ITAL Platelet distribution width (Bld) [Ratio]13.2 %11.8 - 14.4 %[facility] HOSPITALPlatelet mean volume (Bld) [Entitic vol]11.2 fL8.1 - 13.5 fLBON SECOURS MERCY HEALTHPlatelets (Bld) [#/Vol]94 10*3/uLLowBON TRINITY HEALTH SYSTEMRBC (Bld) [#/Vol]3.89 10*6/uLLow4.21 - 5.77 m/uLWELLMONT LONESOME PINE MT. VIEW HOSPITALSegmented neutrophils/100 WBC (Bld)64 %36 - 65 %BON [facility] HEALTH SYSTEMSegs Absolute3.14 BON [facility] HEALTH SYSTEMWBC (Bld) [#/Vol]4.9 10*3/uLBON [facility] HEALTHWELLMONT [facility]OME [facility]INE [facility]IEW HOSPITALCBC with Diffon [id number]. Basophil0.03 k/uLNormal 0.00-0.20[facility] DaytonComment on above:Performed By: #### EMILY, BMPX #### [facility] [employer] [address] [place] [address] Equipment Washer: MDAbs. CoryImm.Granulocyte<0.48Adwbzj9.00-0.30[facility] DaytonComment on above:Performed By: #### EMILY, BMPX #### [facility] [employer] [address] [place] [address] Equipment Washer: Marek Ray.Neutrophil (Seg)3.14 k/uLNormal1.50-8.10 [facility] DaytonComment on above:Performed By: #### EMILY, BMPX #### [facility] [employer] [address] [place] [address] Equipment Washer: Tony Yanez MDBasophils/100 WBC (Bld)1 %Normal0-2[facility] And Medical CenterComment on above:Performed By: #### CDP, BMPX #### [facility] [employer] [address] [place] [address] Equipment Washer: Tony Yanez MDEosinophils (Bld) [#/Vol]0.11 10*3/uLNormal 0.00-0.44[facility] DaytonComment on above:Performed By: #### CDP, BMPX #### [address] [address] Equipment Washer: Tony Yanez MDEosinophils/100 WBC (Bld)2 %Normal1-4[facility] DaytonComment on above:Performed By: #### CDP, BMPX #### [place] [address] Equipment Washer: Tony Yanez MDErythrocyte distribution width (RBC) [Ratio]13.2 %Uuhyva05.8-14.4[facility] DaytonComment on above:Performed By: #### CDP, BMPX #### [place] [address] Equipment Washer: Tony Yanez MDHematocrit (Bld) [Volume fraction]36.2 %Low 40.7-50.3MShriners Hospitals for Children Northern CaliforniaComment on above:Performed By: #### CDP, BMPX #### [place] [address] Equipment Washer: Tony Yanez MDHemoglobin (Bld) [Mass/Vol]12.1 g/dLLow13.0-17.0 [facility] DaytonComment on above:Performed By: #### CDP, BMPX #### [place] [address] Equipment Washer: Tony Yanez MDImmature granulocytes/100 WBC (Bld)0 %Normal0 [facility] DaytonComment on above:Performed By: #### CDP, BMPX #### [address] [address] Equipment Washer: Tony Yanez MDLymphocytes (Bld) [#/Vol]1.10 10*3/uLNormal 1.10-3.70[facility] DaytonComment on above:Performed By: #### EMILY, BMPX #### [address] [address] Equipment Washer: Tony Yanez MDLymphocytes/100 WBC (Bld)22 %Hci77-09IoptcKettering Health DaytonComment on above:Performed By: #### CDP, BMPX #### [address] [address] Equipment Washer: JOSEFA RayCH (RBC) [Entitic mass]31.1 mvMisbtf44.2-33.5 [facility] DaytonComment on above:Performed By: #### CDP, BMPX #### [address] [address] Equipment Washer: JOSEFA RayCHC (RBC) [Mass/Vol]33.4 g/gZLitsqg47.4-34.8 [facility] DaytonComment on above:Performed By: #### CDP, BMPX #### [place] [address] Equipment Washer: JOSEFA RayCV (RBC) [Entitic vol]93.1 qZDlpgfz50.6-102.9 [facility] DaytonComment on above:Performed By: #### CDP, BMPX #### [place] [address] Equipment Washer: JOSEFA Rayonocytes (Bld) [#/Vol]0.53 10*3/uLNormal 0.10-1.20[facility] DaytonComment on above:Performed By: #### CDP, BMPX #### [address] [address] Equipment Washer: JOSEFA Rayonocytes/100 WBC (Bld)11 %Normal3-12[facility] DaytonComment on above:Performed By: #### CDP, BMPX #### [facility] [address] [place] [address] Equipment Washer: Gabe Rayophil (Seg)64 %Bprxgw88-15WjnugKettering Health DaytonComment on above:Performed By: #### CDP, BMPX #### [facility] [address] [place] [address] Equipment Washer: AD Ray Automated0.0 per 100 WBCNormal0.0[facility] DaytonComment on above:Performed By: #### CDP, BMPX #### [facility] [address] [place] [address] Equipment Washer: Darci Ray mean volume (Bld) [Entitic vol]11.2 fL Normal8.1-13.5[facility] DaytonComment on above:Performed By: #### CDP, BMPX #### [facility] [address] [place] [address] Equipment Washer: Royal Ray (Bld) [#/Vol]94 10*3/aSQjv805-220ApwihKettering Health DaytonComment on above:Performed By: #### CDP, BMPX #### [facility] [address] [place] [address] Equipment Washer: ANDRES Ray (Bld) [#/Vol]3.89 10*6/uLLow4.21-5.77[facility] DaytonComment on above:Performed By: #### CDP, BMPX #### [facility] [address] [place] [address] Equipment Washer: NED Ray (Bld) [#/Vol]4.9 10*3/uLNormal3.5-11.3Mbluffton hospitaly [facility] And Medical CenterComment on above:Performed By: #### CDP, BMPX #### [facility] [address] [place] [address] Equipment Washer: Tony Yanez MDCT FACIAL BONES WO CONTRASTon [id number] FACIAL BONES WO CONTRASTEXAMINATION: CT OF THE FACE WITHOUT CONTRAST 08/16/2021 [...] SYSTEM PROVIDED HISTORY: Impact with object riding equipment analyst TECHNOLOGIST PROVIDED HISTORY: Impact with object riding equipment analyst Decision Support Exception - unselect if not [...] Signed by: Augustin Hodges MD 08/16/21 Final resultNormalMercy San Clemente Hospital And Medical CenterMRSA DNA Probe, Nasalon [id number], DNA, NasalNegativeNEGATIVEWELLMONT LONESOME PINE MT. VIEW HOSPITALComment on above:NEGATIVE: MRSA DNA not detected by nucleic acid amplification. Results should be used as an adjunct to nosocomial control efforts to identify patients needing enhanced precautions. The test is not intended to identify patients with staphylococcal infections. Results should not be used to guide or monitor treatment for MRSA infections. Specimen Description.NASAL SWABBON [facility] MRSA, DNA, Nasalon [id number], DNA, NasalNegativeNoalNEGKettering Health DaytonComment on above:Result Comment: NEGATIVE: MRSA DNA not detected by nucleic acid amplification. Results should be used as an adjunct to nosocomial control efforts to identify patients needing enhanced precautions. The test is not intended to identify patients with staphylococcal infections. Results should not be used to guide or monitor treatment for MRSA infections. Performed By: #### MRSANO #### [facility] [employer] [address] [place] [id number] Equipment Washer: TRACEY Rayst. michaels medical centerchelo Description.NASAL SWABNormalKettering Health DaytonComment on above:Performed By: #### MRSANO #### [address] [address] Equipment Washer: Tony Yanez [facility] AUTO DIFFon [id number] #0.0 103/ulNormal 0.0-0.1The [facility] HospitalComment on above:Performed By: #### CVDTBH #### [facility] [address] [address] [address] Natalya ArthurBasophils/100 WBC (Bld)0.6 %Normal0.2-2.0[facility] Comment on above:Performed By: #### CVDTBH #### [facility] [address] [address] [address] Natalya Gilliam #0.1 103/ulNormal0.0-0.7The [facility] HospitalComment on above: Performed By: #### CVDTBH #### [facility] [address] [address] [address] Natalya Pearsonosinophils/100 WBC (Bld)1.9 %Normal0.9-7.0[facility] Comment on above:Performed By: #### CVDTBH #### [facility] [address] [place] [address] Dr. Natalya Tylerthrocyte distribution width (RBC) [Ratio]13.1 %Offena39.0-15.0 The Epping HospitalComment on above:Performed By: #### CVDTBH #### [facility] [address] [place] [address] Dr. Natalya ArthurHematocrit (Bld) [Volume fraction]38.5 %Critically low42.0-54.0 The [facility] HospitalComment on above:Performed By: #### CVDTBH #### [facility] [address] [place] [address] Dr. Natalya ArthurHemoglobin (Bld) [Mass/Vol]12.7 g/dLCritically low14.0-18.0The [facility] HospitalComment on above:Performed By: #### CVDTBH #### [facility] [address] [place] [address] Dr. Natalya Thompson #0.03 10e3/ulNormal0.00-0.03The [facility] HospitalComment on above:Performed By: #### CVDTBH #### [facility] [address] [place] [address] Dr. Natalya Thompson %0.6 %Critically high0.0-0.5The [facility] HospitalComment on above:Performed By: #### CVDTBH #### [facility] [address] [place] [address] Dr. Natalya Rivera #0.8 103/ulCritically low1.2-3.8[facility] Comment on above:Performed By: #### CVDTBH #### [facility] [address] [place] [address] Dr. Natalya Sanchezhocytes/100 WBC (Bld)15.3 %Critically low20.5-60.0Pe[facility] HospitalComment on above:Performed By: #### CVDTBH #### [facility] [address] [place] [address] Dr. Natalya ReisUAL DIFF REQNONormalThe [facility] HospitalComment on above: Performed By: #### CVDTBH #### [facility] [address] [place] [address] Dr. Natalya Akins (RBC) [Entitic mass]31.0 syKllckb28.9-34.0The [facility] HospitalComment on above:Performed By: #### CVDTBH #### [facility] [address] [place] [address] Dr. Natalya Kendall (RBC) [Mass/Vol]33.0 g/gNMusmxm03.9-35.2The [facility] HospitalComment on above:Performed By: #### CVDTBH #### [facility] [address] [place] [address] Dr. Natalya Kendall (RBC) [Entitic vol]93.9 vICaohqq10.0-94.0The [facility] HospitalComment on above:Performed By: #### CVDTBH #### [facility] [address] [place] [address] Dr. Natalya Burks #0.4 103/ulNormal0.3-0.8The [facility] HospitalComment on above:Performed By: #### CVDTBH #### [facility] [address] [place] [address] Dr. Natalya Luzocytes/100 WBC (Bld)8.0 %Normal1.7-12.0[facility] Comment on above:Performed By: #### CVDTBH #### [facility] [address] [place] [address] Dr. Natalya Crowley #3.8 103/ulNormal1.4-6.5The [facility] HospitalComment on above:Performed By: #### CVDTBH #### [facility] [address] [place] [address] Dr. Natalya Whittenutrophils/100 WBC (Bld)73.6 %Kvoacm79.0-75.0The [facility] HospitalComment on above:Performed By: #### CVDTBH #### [facility] [address] [place] [address] Dr. Natalya Sotolet mean volume (Bld) [Entitic vol]10.8 fLNormal9.5-13.5The [facility] HospitalComment on above:Performed By: #### CVDTBH #### [facility] [address] [address] [address] Natalya ArthurPLT100 103/ulCritically ngc134-519Bie [facility] HospitalComment on above:Performed By: #### CVDTBH #### [facility] [address] [address] [address] Natalya ArthurRBC4.10 106/ulCritically low4.70-6.10The [facility] HospitalComment on above:Performed By: #### CVDTBH #### [facility] [address] [address] [address] Natalya ArthurWBC5.2 103/ulNormal4.0-11.0The [facility] HospitalComment on above: Performed By: #### CVDTBH #### [facility] [address] [address] [address] Natalya ArthurCT CSPINE WO CONon [id number] CSPINE WO CONEXAMINATION: CT CSPINE WO CON HISTORY: UNSPECIFIED INJURY OF HEAD, [...] Electronically authenticated by: ARTHUR LÓPEZ Date: 2021-08-16 17:00NormACMC Healthcare SystemCT FACIAL BONES WO CONTRASTon 62-30-2927Gz acute facial fracture. Soft tissue swelling and ecchymosis of the left face and scalp. [facility] RIS CONSOLIDATEDEXAMINATION: CT OF THE FACE WITHOUT CONTRAST 08/16/2021 [...] SYSTEM PROVIDED HISTORY: Impact with object riding equipment analyst TECHNOLOGIST PROVIDED HISTORY: Impact with object riding equipment analyst Decision Support Exception - unselect if not [...] subcutaneous emphysema left periorbital region. [facility] Augustin Koroma MD - 08/16/2021 EXAMINATION: CT OF THE [...] SYSTEM PROVIDED HISTORY: Impact with object riding equipment analyst TECHNOLOGIST PROVIDED HISTORY: Impact with object riding equipment analyst Decision Support Exception - unselect if not [...] ecchymosis of the left face and scalp. [employer] Work Phone: ct FACIAL BONES WO CONTRASTOrdered By: Augustin Hodges on [id number] [employer] Work Phone: ct HEAD WO CONon [id number] HEAD WO CONCT head without contrast CLINICAL: UNSPECIFIED INJURY OF [...] Electronically authenticated by: SUKH CROFT Date: 2021-08-16 15:37[facility] HEAD WO CONTRASTon [id number] HEAD WO CONTRASTEXAMINATION: CT OF THE HEAD WITHOUT CONTRAST 08/16/2021 [...] Signed by: Hardeep Godwin MD 08/16/21 Final resultNormalKettering Health DaytonMinimal left frontal subarachnoid hemorrhage in 1 of the sulci. No evidence of extra-axial collections. Prominent left frontal and parietal scalp swelling/hemorrhage. The findings were sent to the Radiology Results Communication Center at 9:22 pm on 08/16/2021 to be communicated to a licensed caregiver. [facility] RIS CONSOLIDATEDEXAMINATION: CT OF THE HEAD WITHOUT CONTRAST 08/16/2021 [...] TISSUES/SKULL: There is left frontoparietal scalp swelling/hemorrhage. Hardeep Cardoza MD - 08/16/2021 EXAMINATION: CT OF THE [...] to be communicated to a licensed caregiver. [employer] Work Phone: cT HEAD WO CONTRASTOrdered By: Hardeep Godwin on 22-79-3224AFP [employer] Phone: [phone]-27 PCR (CVDTB)on [id number]-CoV-2 (COVID- 19) RNA GÓMEZ+probe Ql (Unsp spec)Not detectedNormalNOT DETECTEDThe [facility] HospitalComment on above:Result Comment: This test is not yet approved or cleared by the [place] FDA. When there are no FDA-approved or cleared tests available, and other criteria are met, FDA can make tests available under an emergency access mechanism called an Emergency Use Authorization (EUA). The EUA for this test is supported by the Head Grease Maker of Health and Human Service's (HHS's) declaration [...] of clinical signs and symptoms consistent with SARS-CoV-2.Performed By: #### CVDTBH #### [facility] [address] [place] [address] Dr. Natalya Colin Panel Informationon 34-55-8050Rfxizkmzz Study observation (narrative)CAROL ANN [employer] Phone: pROF CHEM 8 (BAS METB)on 22-42-5112Ivgps gap [Moles/Vol]13.6 mmol/LNormalPeoples HospitalComment on above:Performed By: #### CVDTBH #### [facility] [address] [place] [address] Dr. Natalya ArthurCalcium [Mass/Vol]9.0 mg/dLNormal8.5-10.1[facility] Comment on above:Performed By: #### CVDTBH #### [facility] [address] [address] [address] Natalya ArthurChloride [Moles/Vol]107 mmol/QCpiyoe64-097Fuq [facility] Comment on above:Performed By: #### CVDTBH #### [facility] [address] [address] [address] Natalya ArthurCO2 [Moles/Vol]24.4 mmol/XMujche24.0-32.0[facility] Comment on above:Performed By: #### CVDTBH #### [facility] [address] [address] [address] Natalya ArthurCreatinine [Mass/Vol]1.09 mg/dLNormal0.70-1.30The [facility] HospitalComment on above:Performed By: #### CVDTBH #### [facility] [address] [address] [address] Natalya PearsonGFR-AF LUXEMBOURGER>60Normal>=60The [facility] HospitalComment on above:Performed By: #### CVDTBH #### [facility] [address] [address] [address] Natalya PearsonGFR-NON AF LUXEMBOURGER>60Normal>=60The [facility] HospitalComment on above:Performed By: #### CVDTBH #### [facility] [address] [address] [address] Natalya ArthurGlucose [Mass/Vol]111 mg/dLCritically jtuz45-395Opq [facility] HospitalComment on above:Performed By: #### CVDTBH #### [facility] [address] [address] [address] Natalya ArthurPotassium [Moles/Vol]4.0 mmol/LNormal3.5-5.1[facility] Comment on above:Performed By: #### CVDTBH #### [facility] [address] [address] [address] Natalya ArthurSodium [Moles/Vol]141 mmol/WFvnsfa256-818Ght [facility] Comment on above:Performed By: #### CVDTBH #### [facility] [address] [place] [address] nitrogen [Mass/Vol]21.0 mg/dLCritically high7.0-18.0[facility] HospitalComment on above:Performed By: #### CVDTBH #### [facility] [address] [place] [address] nitrogen/Creatinine [Mass ratio]19.3 mg/mgNoAshtabula General HospitalComment on above:Performed By: #### CVDTBH #### [facility] [address] [place] [address] Dr. Natalya Dorantes 04-75-7701WHI Coag (PPP) [Relative time]1.12 {INR} NormalThe [facility] HospitalComment on above:Performed By: #### FETIBC, FERR #### [facility] [address] [place] [address] Dr. Natalya Gonzalez GUIDELINESSEE BELOWKettering Health TroyComment on above:Result Comment: DESIRED INR: 2.0 - 3.0 CONDITIONS NOT LISTED BELOW 2.5 - 3.5 FOR PROSTHETIC HEART VALVE REPLACEMENT 2.5 - 3.5 RECURRENT THROMBOSIS Performed By: #### FETIBC, FERR #### [facility] [address] [place] [address] Dr. Natalya ArthurPT Coag (PPP) [Time]12.0 sCritically high9.0-11.6The [facility] HospitalComment on above:Performed By: #### FETIBC, FERR #### [facility] [address] [place] [address] Dr. Natalya Noriega 56-85-4214pNNX Coag (Bld) [Time]28.6 yWytrec44.3-36.2The [facility] HospitalComment on above:Performed By: #### FETIBC, FERR #### [facility] [address] [place] [address] Dr. Natalya ArthurWbwraOSKRT-5-GRYYNGBMUPKqk 99-37-9579Fvato-1-Antitrypsin, Tktjr769 mg/rYLpubth788-723Itd [facility] HospitalComment on above:Performed By: #### ALPHA-1 #### [facility] [address] [place] [address] Dr. Natalya Hummel EIA W/REFLEX 5 BIOMARKERSon 30-83-5053QAL DirectNegative NormalNegativeThe [facility] HospitalComment on above:Performed By: #### CVDTBH #### [facility] [address] [place] [address] Dr. Natalya ArthurCERULOPLASMINon 05-58-8030Ohtxxtmoddzmg94.0 mg/yLMigfwf97.0-31.0 The [facility] HospitalComment on above:Performed By: #### CEUROPL #### [facility] [address] [place] [address] Dr. Natalya Guzman MUSCLE ANTIBODYon 02-69-7880Kuhuz (Smooth Muscle) Antibody 25 UnitsCritically high0-19The [facility] HospitalComment on above:Result Comment: Negative 0 - 19 Weak positive 20 - 30 Moderate to strong positive >30 . Actin Antibodies are found in 52-85% of patients with autoimmune hepatitis or chronic active hepatitis and in 22% of patients with primary biliary cirrhosis.Performed By: #### CVDTBH #### [facility] [address] [place] [address] Dr. Natalya Neely AUTO DIFFon [id number] #0.0 103/ulNormal0.0-0.1The [facility] HospitalComment on above:Performed By: #### FETIBC, FERR #### [facility] [address] [place] [address] Dr. Natalya ArthurBasophils/100 WBC (Bld)0.4 %Normal0.2-2.0[facility] Comment on above:Performed By: #### FETIBC, FERR #### [facility] [address] [place] [address] Dr. Hoang ChangELucía #0.2 103/ulNormal0.0-0.7The [facility] HospitalComment on above: Performed By: #### FETIBC, FERR #### [facility] [address] [place] [address] Dr. Natalya Pearsonosinophils/100 WBC (Bld)4.0 %Normal0.9-7.0[facility] Comment on above:Performed By: #### FETIBC, FERR #### [facility] [address] [place] [address] Dr. Natalya Pearsonrythrocyte distribution width (RBC) [Ratio]13.8 %Jujznb18.0-15.0 [facility] HospitalComment on above:Performed By: #### FETIBC, FERR #### [facility] [address] [place] [address] Dr. Natalya ArthurHematocrit (Bld) [Volume fraction]41.5 %Critically low42.0-54.0 [facility] HospitalComment on above:Performed By: #### FETIBC, FERR #### [facility] [address] [place] [address] Dr. Natalya ArthurHemoglobin (Bld) [Mass/Vol]13.2 g/dLCritically low14.0-18.0The [facility] HospitalComment on above:Performed By: #### FETIBC, FERR #### [facility] [address] [place] [address] Dr. Natalya Thompson #0.02 10e3/ulNormal0.00-0.03The [facility] HospitalComment on above:Performed By: #### FETIBC, FERR #### [facility] [address] [place] [address] Dr. Natalya Thompson %0.4 %Normal0.0-0.5The [facility] HospitalComment on above: Performed By: #### FETIBC, FERR #### [facility] [address] [place] [address] Dr. Natalya Rivera #0.8 103/ulCritically low1.2-3.8[facility] Comment on above:Performed By: #### FETIBC, FERR #### [facility] [address] [place] [address] Dr. Natalya Carranzamphocytes/100 WBC (Bld)17.0 %Critically low20.5-60.0The [facility] HospitalComment on above:Performed By: #### FETIBC, FERR #### [facility] [address] [place] [address] Dr. Natalya Esparza DIFF REQNONormalThe [facility] HospitalComment on above: Performed By: #### FETIBC, FERR #### [facility] [address] [place] [address] Dr. Natalya Kendall (RBC) [Entitic mass]30.9 qxYdwnxc38.9-34.0The [facility] HospitalComment on above:Performed By: #### FETIBC, FERR #### [facility] [address] [place] [address] Dr. Natalya Kendall (RBC) [Mass/Vol]31.8 g/cZHmruol32.9-35.2The [facility] HospitalComment on above:Performed By: #### FETIBC, FERR #### [facility] [address] [place] [address] Dr. Natalya Corona (RBC) [Entitic vol]97.2 fLCritically high80.0-94.0The [facility] HospitalComment on above:Performed By: #### FETIBC, FERR #### [facility] [address] [place] [address] Dr. Natalya Burks #0.5 103/ulNormal0.3-0.8The [facility] HospitalComment on above:Performed By: #### FETIBC, FERR #### [facility] [address] [place] [address] Dr. Natalya Luzocytes/100 WBC (Bld)10.5 %Normal1.7-12.0[facility] Comment on above:Performed By: #### FETIBC, FERR #### [facility] [address] [place] [address] Dr. Yilan ChangNEUT #3.2 103/ulNormal1.4-6.5The [facility] HospitalComment on above:Performed By: #### FETIBC, FERR #### [facility] [address] [place] [address] Dr. Natalya Whittenutrophils/100 WBC (Bld)67.7 %Oogbxx53.0-75.0The [facility] on above:Performed By: #### FETIBC, FERR #### [facility] [address] [place] [address] Dr. Natalya ArthurPlatelet mean volume (Bld) [Entitic vol]10.7 fLNormal9.5-13.5The [facility] Hospitalment on above:Performed By: #### FETIBC, FERR #### [facility] [address] [place] [address] Dr. Natalya ArthurPLT106 103/ulCritically rid300-353Twq [facility] on above:Result Comment: smear reviewedPerformed By: #### FETIBC, FERR #### [facility] [address] [place] [address] Dr. Natalya ArthurRBC4.27 106/ulCritically low4.70-6.10The [facility] on above:Performed By: #### FETIBC, FERR #### [facility] [address] [place] [address] Dr. Natalya ArthurWBC4.8 103/ulNormal4.0-11.0The [facility] on above: Performed By: #### FETIBC, FERR #### [facility] [address] [place] [address] Dr. Natalya ArthurFERRITINon 45-86-1669Ranenklj [Mass/Vol]94.0 ng/mLNormal 17.9-464.0The [facility] on above:Performed By: #### FETIBC, FERR #### [facility] [address] [place] [address] Dr. Natalya Myers AND TIBCon 07-12-2021% BUBKCMRUJD35.8 %NormalThe St. Elizabeth Hospitalment on above:Performed By: #### FETIBC, FERR #### [facility] [address] [address] [address] Natalya Myers [Mass/Vol]106.0 ug/qLGzqnsf68.0-181.0[facility] Comment on above:Performed By: #### FETIBC, FERR #### [facility] [address] [place] [address] Dr. Natalya Pickard BKMASR192.0 ug/yKBrsgig592.0-497.0[facility] Comment on above:Performed By: #### FETIBC, FERR #### [facility] [address] [place] [address] Dr. Natalya VilledaID PROFILEon 57-12-9496GLEV-HDL RATIO NORMSEE [facility] MemorialComment on above:Result Comment: 3.3 - 4.4 LOW RISK 4.4 - 7.1 AVERAGE RISK 7.1 - 11.0 MODERATE RISK >11.0 HIGH RISKPerformed By: #### LIVER, LIPID #### [facility] [address] [place] [address] Dr. Natalya Benítezesterol [Mass/Vol]139 mg/dLNormal<=200[facility] Comment on above:Performed By: #### LIVER, LIPID #### [facility] [address] [place] [address] Dr. Natalya ArthurCholesterol in HDL [Mass/Vol]58 mg/zSVoersq28-89Klx [facility] HospitalComment on above:Performed By: #### LIVER, LIPID #### [facility] [address] [place] [address] Dr. Natalya ArthurCholesterol in LDL [Mass/Vol]58.8 mg/dLKettering Health TroyComuniversity of michigan health on above:Performed By: #### LIVER, LIPID #### [facility] [address] [place] [address] Dr. Natalya Benítezesterbacilio.total/Cholesterol in HDL [Mass ratio]2.4 {ratio} NormalThe Rod HospitalComment on above:Performed By: #### LIVER, LIPID #### [facility] [address] [address] [address] Natalya Gross NORMAL> or = 60 mg/dl - LOW CARDIOVASCULAR RISK <40 mg/dl - HIGH CARDIOVASCULAR RISKOur Lady of Mercy [facility] on above:Performed By: #### LIVER, LIPID #### [facility] [address] [address] [address] Natalya Girard CALC NORMALSEE BELOWNoAshtabula General HospitalComment on above:Result Comment: <100 mg/dl OPTIMAL 100 - 129 mg/dl NEAR OR ABOVE OPTIMAL 130 - 159 mg/dl BORDERLINE HIGH 160 - 189 mg/dl HIGH >190 mg/dl VERY HIGH Performed By: #### LIVER, LIPID #### [facility] [address] [address] [address] Natalya ArthurTriglyceride [Mass/Vol]111 mg/dLNormal<=150[facility] Comment on above:Performed By: #### LIVER, LIPID #### [facility] [address] [address] [address] Natalya Mar CALC22.2 mg/dLNoAshtabula General HospitalComuniversity of mich[facility] health on above: Performed By: #### LIVER, LIPID #### [facility] [address] [address] [address] Natalya Rincon PROFILEon 30-24-8792Lzynbkp [Mass/Vol]3.4 g/dLNormal3.4-5.0 The [facility] on above:Performed By: #### LIVER, LIPID #### [facility] [address] [address] [address] Natalya ArthurAlbumin/Globulin [Mass ratio]0.9 {ratio}NormalThe [facility] on above:Performed By: #### LIVER, LIPID #### [facility] [address] [address] [address] Natalya RamirezP [Catalytic activity/Vol]129 U/LCritically mhwu59-321Xpe [facility] on above:Performed By: #### LIVER, LIPID #### [facility] [address] [address] [address] Natalya Paul [Catalytic activity/Vol]72 U/LCritically cact21-53Kdu [facility] HospitalComment on above:Performed By: #### LIVER, LIPID #### [facility] [address] [address] [address] Natalya Tovar [Catalytic activity/Vol]57 U/LCritically isvv42-54Tau [facility] HospitalComment on above:Performed By: #### LIVER, LIPID #### [facility] [address] [address] [address] Natalya PalmerI, CONJUGATED0.2 mg/dLNormal0.0-0.3TPomerene Hospital Comment on above:Performed By: #### LIVER, LIPID #### [facility] [address] [place] [address] Dr. Natalya Palmerirubin [Mass/Vol]0.6 mg/dLNormal0.2-1.3TPomerene Hospital Comment on above:Performed By: #### LIVER, LIPID #### [facility] [address] [address] [address] Natalya ArthurGlobulin (S) [Mass/Vol]3.9 g/dLKettering Health TroyComuniversity of michigan health on above:Performed By: #### LIVER, LIPID #### [facility] [address] [place] [address] Dr. Natalya ArthurProtein [Mass/Vol]7.3 g/dLNormal6.1-8.2[facility] Comment on above:Performed By: #### LIVER, LIPID #### [facility] [address] [place] [address] Dr. Natalya ArthurPROTIMEserafin 57-86-6399OGE Coag (PPP) [Relative time]1.10 {INR} NormalThe [facility] HospitalComuniversity of [facility] health on above:Performed By: #### FETIBC, FERR #### [facility] [address] [place] [address] Dr. Natalya EscobarR GUIDELINESSEE BELOWKettering Health TroyComment on above:Result Comment: DESIRED INR: 2.0 - 3.0 CONDITIONS NOT LISTED BELOW 2.5 - 3.5 FOR PROSTHETIC HEART VALVE REPLACEMENT 2.5 - 3.5 RECURRENT THROMBOSIS Performed By: #### FETIBC, FERR #### [facility] [address] [address] [address] Naatlya ArthurPT Coag (PPP) [Time]11.8 sCritically high9.0-11.6The [facility] HospitalComment on above:Performed By: #### FETIBC, RAFA #### [facility] [address] [address] [address] Natalya ArthurComprehensive Metabolic Panelon [id number] [Mass/Vol]3.9 g/dLNormal3.6-5.1[facility] SpecialistComment on above:Performed By: #### CMP #### [facility] [address] [place], [place] [id number]/Globulin [Mass ratio]1.4 {ratio}Normal1.0-2.5Noatrium health stanlyn [facility] SpecialistComment on above:Performed By: #### CMP #### [facility] [address], [place] [id number] [Catalytic activity/Vol]128 U/IGeuyog12-324NbdybkyqSelect Medical [facility] Hospital, BeachwoodComuniversity of mich[facility] health on above:Performed By: #### CMP #### [facility] [address], [place] [id number] [Catalytic activity/Vol]45 U/LNormal9-46[facility]n [facility] SpecialistComment on above:Result Comment: 02/22/2021 Female reference range changed.Performed By: #### CMP #### [facility] [address], [place] [id number] gap [Moles/Vol]15 mmol/VCuaiii22-08Qtncnvyj [facility] SpecialistComment on above:Result Comment: Effective 03/30/2019 reference range changed.Performed By: #### CMP #### [facility] [address], [place] [id number] [Catalytic activity/Vol]49 U/MDrdm25-75Ktwxlmih [facility] SpecialistComment on above:Performed By: #### CMP #### [facility] [address] [id number] [Mass/Vol]0.36 mg/dLNormal0.30-1.20[facility]n [facility] SpecialistComment on above:Performed By: #### CMP #### [facility] [address] [place], [place] [id number]/CREA15 RatioNormal6-22NortChildren's Hospital for RehabilitationMatch Up Person Comment on above:Performed By: #### CMP #### [facility] [address], [place] [id number] [Mass/Vol]9.2 mg/dLNormal8.6-10.2[facility] SpecialistComment on above:Performed By: #### CMP #### [facility] [address] [facility], [place] [id number] [Moles/Vol]104 mmol/IAqfdmx90-910Xhzjimix [facility] SpecialistComment on above:Performed By: #### CMP #### [facility] [address] [facility] [place] [id number] [Moles/Vol]24 mmol/JEdzoos73-32Nthuvbve [facility] SpecialistComment on above:Performed By: #### CMP #### [facility] [address], [place] [id number] [Mass/Vol]1.0 mg/dLNormal0.7-1.4[facility]seh[facility]so[facility]n [facility] SpecialistComment on above:Performed By: #### CMP #### [facility] [address], [place] [id number] mL/min/1.79e6Ebjaqd>60[facility]n [facility] SpecialistComment on above:Performed By: #### CMP #### [facility] [address] [facility], [place] [id number] mL/min/1.93h4Loikpf>60NortTr[facility] Medical SpecialistComment on above:Performed By: #### CMP #### [facility] [address] [place], [place] [id number] (S) [Mass/Vol]2.7 g/dLNormal1.9-3.7NoWhite [facility] SpecialistComment on above:Performed By: #### CMP #### [facility] [address], [place] [id number] [Mass/Vol]111 mg/kUKgpu98-22Fnmdwcdf [facility] SpecialistComment on above:Result Comment: For FASTING Glucose --- ADA reference ranges: Normal 65-99 mg/dl Prediabetes 100-125 Diabetes >/= 126Performed By: #### CMP #### [facility] [address], [place] [id number] [Moles/Vol]4.5 mmol/LNormal3.5-5.5NoWhite Hospital SpecialistComment on above:Performed By: #### CMP #### [facility] [address], [place] [id number] [Mass/Vol]6.6 g/dLNormal6.1-8.1NortherNewark Hospital SpecialistComment on above:Performed By: #### CMP #### [facility] [address], [place] [id number] [Moles/Vol]139 mmol/TTctqxg300-463Hhcfmuvt [facility] SpecialistComment on above:Performed By: #### CMP #### [facility] [address], [place] [id number] nitrogen [Mass/Vol]15 mg/dLNormal7-25NoWhite Hospital SpecialistComment on above:Performed By: #### CMP #### [facility] [address], [place] [id number] - HEPATITIS PANEL ABC GENERAL WITH REFLEXon 06-07-2021 HEPATITIS A AB, EMYNDEts-IdafibszPyzyvbBFN-LJXGWSABOrmlghyl [facility] SpecialistComment on above:Order Comment: [facility] performed at: Q[facility], [facility], [address], [address] [facility], [place], [address], Ticket Puller: Sd Sharma MD [facility] Date/Time: [facility] Results Received Date/Time: [facility] Reported Date/Time: [id number] Comment: For additional information, please refer to http://education.Mobypark/faq/UIZ914 (This link is being provided for informational/ educational purposes only.)Performed By: #### [id number] #### [facility] [address] [place], [place] [address]WJJSVYFPD B CORE AB ILTFKWco-UweemezgJvfqrlLFM-YWMXVNUUMnagvwzl [facility] SpecialistComment on above:Order Comment: [facility] performed at: [facility], [facility], [address] [place] [address], [address] [place] [address], Ticket Puller: Sd Sharma MD [facility] Date/Time: [facility] Results Received Date/Time: [facility] Reported Date/Time: [id number] By: #### [id number] #### [facility] [address] [place], [place] [address]UOPGDZAMS B SURFACE ANTIBODY UXUyo-FotunksdAuvcfyNUW-RWWIQMQB [facility] SpecialistComment on above:Order Comment: [facility] performed at: [email or web address], [facility], [address] [place] [address], [address] [place] [address], [address] [place] [address], Ticket Puller: Sd Sharma MD [facility] Date/Time: [facility] Results Received Date/Time: [facility] Reported Date/Time: [id number] By: #### [id number] #### [facility] [address] [place], [place] [address]NQWWLZJBH B SURFACE NIEEZNBPzd-VctzbqdhDknukiPEI-EUGDHQTBNfmupyzm [facility] SpecialistComment on above:Order Comment: [facility] performed at: [employer], [facility], [address] [place] [address], [address] [place] [address], [address] [place] [address], Ticket Puller: Sd Sharma MD [facility] Date/Time: [facility] Results Received Date/Time: [facility] Reported Date/Time: [id number] By: #### [id number] #### [facility] [address] [place], [place] [address]QMRUKYJXX C YAUZJTITBlq-BzruuvmuZvvnyxNYD-GJJRFKBFSgebixze [facility] SpecialistComment on above:Order Comment: [facility] performed at: [email or web address], [facility], [address] [place] [address], [address] [place] [address], [address] [place] [address], Ticket Puller: Sd Sharma MD [facility] Date/Time: [facility] Results Received Date/Time: [facility] Reported Date/Time: [id number] By: #### [id number] #### [facility] [address] [place], [place] [address]HYMOVF TO CUT-OFF0.02Normal<1.00[facility] Specialist Comment on above:Order Comment: [facility] performed at: [email or web address], [facility], [address] [facility], [address] [place] [address], [address] [place] [address], Ticket Puller: Sd Sharma MD [facility] Date/Time: [facility] Results Received Date/Time: [facility] Reported Date/Time: [id number] Comment: HCV antibody was non-reactive. There is no laboratory evidence of HCV infection. In most cases, no further action is required. However, if recent HCV exposure is suspected, a test for HCV RNA (test code 62652) is suggested. For additional information please refer to http://education.iCopyright.YouChe.com/faq/FDS96c2 (This link is being provided for informational/ educational purposes only.)Performed By: #### [id number] #### [facility] [address] [place], [place] [address]Kxknkvwx Blood Count with Auto Diffon [id number] (Bld) [#/Vol]0.05 10*3/uLNormal0.00-0.20No[facility] SpecialistComment on above:Performed By: #### CBCAD, CMP, VITD, TSH reflex FT4, LIPD #### [facility] [address] [place], [place] [id number]/100 WBC (Bld)1.1 %NormalEast [facility] SpecialistComment on above:Performed By: #### CBCAD, CMP, VITD, TSH reflex FT4, LIPD #### [facility] [address], [place] [id number] (Bld) [#/Vol]0.29 10*3/uLNormal0.02-0.50[facility] SpecialistComment on above:Performed By: #### CBCAD, CMP, VITD, TSH reflex FT4, LIPD #### [facility] [address], [place] [id number]/100 WBC (Bld)6.3 %NormalNoWhite Hospital SpecialistComment on above:Performed By: #### CBCAD, CMP, VITD, TSH reflex FT4, LIPD #### [facility] [address], [place] [id number] distribution width (RBC) [Ratio]12.9 %Normal 11.0-15.0[facility] SpecialistComment on above:Performed By: #### CBCAD, CMP, VITD, TSH reflex FT4, LIPD #### [facility] [address], [place] [id number] (Bld) [Volume fraction]40.4 %Xrtqrb40.5-50.0 [facility] SpecialistComment on above:Performed By: #### CBCAD, CMP, VITD, TSH reflex FT4, LIPD #### [facility] [address], [place] [id number] (Bld) [Mass/Vol]13.1 g/dFPvslxj82.0-17.1[facility] SpecialistComment on above:Performed By: #### CBCAD, CMP, VITD, TSH reflex FT4, LIPD #### [facility] [address], [place] [id number] (Bld) [#/Vol]0.9 10*3/uLNormal0.9-3.9NortChildren's Hospital for Rehabilitation SpecialistComment on above:Performed By: #### CBCAD, CMP, VITD, TSH reflex FT4, LIPD #### [facility] [address] [place], [place] [id number]/100 WBC (Bld)18.6 %NormalNoWhite Hospital SpecialistComment on above:Performed By: #### CBCAD, CMP, VITD, TSH reflex FT4, LIPD #### [facility] [address], [place] [id number] (RBC) [Entitic mass]31.0 onPkrvee00.0-33.0No[facility] SpecialistComment on above:Performed By: #### CBCAD, CMP, VITD, TSH reflex FT4, LIPD #### [facility] [address], [place] [id number] (RBC) [Mass/Vol]32.4 g/lXDmccdr62.0-36.0No[facility] SpecialistComment on above:Performed By: #### CBCAD, CMP, VITD, TSH reflex FT4, LIPD #### [facility] [address], [place] [id number] (RBC) [Entitic vol]96 tVSyfqib33-549Injzkjou [facility] SpecialistComment on above:Performed By: #### CBCAD, CMP, VITD, TSH reflex FT4, LIPD #### [facility] [address], [place] [id number] (Bld) [#/Vol]0.4 10*3/uLNormal0.2-0.9NortChildren's Hospital for Rehabilitation SpecialistComment on above:Performed By: #### CBCAD, CMP, VITD, TSH reflex FT4, LIPD #### [facility] [address], [place] [id number]/100 WBC (Bld)8.4 %NormalNoWhite Hospital SpecialistComment on above:Performed By: #### CBCAD, CMP, VITD, TSH reflex FT4, LIPD #### [facility] [address], [place] [id number] (Bld) [#/Vol]3.0 10*3/uLNormal1.5-7.8NortChildren's Hospital for Rehabilitation SpecialistComment on above:Performed By: #### CBCAD, CMP, VITD, TSH reflex FT4, LIPD #### [facility] [address], [place] [id number]/100 WBC (Bld)65.4 %NormalNoWhite Hospital SpecialistComment on above:Performed By: #### CBCAD, CMP, VITD, TSH reflex FT4, LIPD #### [facility] [address], [place] [id number] mean volume (Bld) [Entitic vol]10.20 fLNormal 7.50-12.50No[facility] SpecialistComment on above:Performed By: #### CBCAD, CMP, VITD, TSH reflex FT4, LIPD #### [facility] [address], [place] [id number] (Bld) [#/Vol]141 10*3/yRCrgwwu487-871Gghavbtp [facility] SpecialistComment on above:Performed By: #### CBCAD, CMP, VITD, TSH reflex FT4, LIPD #### [facility] [address], [place] [id number] (Bld) [#/Vol]4.22 10*6/uLNormal4.20-5.80No[facility] SpecialistComment on above:Performed By: #### CBCAD, CMP, VITD, TSH reflex FT4, LIPD #### [facility] [address], [place] [id number]-BS91.2 nEJszsou85.0-50.0[facility] Specialist Comment on above:Performed By: #### CBCAD, CMP, VITD, TSH reflex FT4, LIPD #### [facility] [address], [place] [id number] (Bld) [#/Vol]4.6 10*3/uLNormal3.8-11.0NoOhio Valley HospitalComment on above:Performed By: #### CBCAD, CMP, VITD, TSH reflex FT4, LIPD #### [facility] [address], [place] [id number] Metabolic Panelon 56-66-2792Xukbcoc [Mass/Vol] 4.0 g/dLNormal3.6-5.1[facility] SpecialistComment on above:Performed By: #### CBCAD, CMP, VITD, TSH reflex FT4, LIPD #### [facility] [address], [place] [id number]/Globulin [Mass ratio]1.5 {ratio}Normal1.0-2.5NoOhio Valley HospitalComment on above:Performed By: #### CBCAD, CMP, VITD, TSH reflex FT4, LIPD #### [facility] [address], [place] [id number] [Catalytic activity/Vol]140 U/FCsmd49-065VrsmnjpvOhio Valley HospitalComment on above:Performed By: #### CBCAD, CMP, VITD, TSH reflex FT4, LIPD #### [facility] [address], [place] [id number] [Catalytic activity/Vol]63 U/LHigh9-46No[facility] SpecialistComment on above:Result Comment: 02/22/2021 Female reference range changed.Performed By: #### CBCAD, CMP, VITD, TSH reflex FT4, LIPD #### [facility] [address], [place] [id number] gap [Moles/Vol]17 mmol/JObarpk84-28Yhrpbocg [facility] SpecialistComment on above:Result Comment: Effective 03/30/2019 reference range changed.Performed By: #### CBCAD, CMP, VITD, TSH reflex FT4, LIPD #### [facility] [address], [place] [id number] [Catalytic activity/Vol]62 U/UVtkl05-87FzkzqqxzWhite Hospital SpecialistComment on above:Performed By: #### CBCAD, CMP, VITD, TSH reflex FT4, LIPD #### [facility] [address], [place] [id number] [Mass/Vol]0.41 mg/dLNormal0.30-1.20No[facility] SpecialistComment on above:Performed By: #### CBCAD, CMP, VITD, TSH reflex FT4, LIPD #### [facility] [address], [place] [id number]/CREA13 RatioNormal6-22No[facility] Specialist Comment on above:Performed By: #### CBCAD, CMP, VITD, TSH reflex FT4, LIPD #### [facility] [address], [place] [id number] [Mass/Vol]9.5 mg/dLNormal8.6-10.2[facility] SpecialistComment on above:Performed By: #### CBCAD, CMP, VITD, TSH reflex FT4, LIPD #### [facility] [address], [place] [id number] [Moles/Vol]106 mmol/IQkwzuj50-635Eylpvsgq [facility] SpecialistComment on above:Performed By: #### CBCAD, CMP, VITD, TSH reflex FT4, LIPD #### [facility] [address], [place] [id number] [Moles/Vol]26 mmol/VVbbaos24-67Bvcxwezf [facility] SpecialistComment on above:Performed By: #### CBCAD, CMP, VITD, TSH reflex FT4, LIPD #### [facility] [address], [place] [id number] [Mass/Vol]0.9 mg/dLNormal0.7-1.4NoWhite Hospital SpecialistComment on above:Performed By: #### CBCAD, CMP, VITD, TSH reflex FT4, LIPD #### [facility] [address], [place] [id number] mL/min/1.97y2Pwtykq>60No[facility] SpecialistComment on above:Performed By: #### CBCAD, CMP, VITD, TSH reflex FT4, LIPD #### [facility] [address], [place] [id number] mL/min/1.29l1Pitoza>60NortChildren's Hospital for Rehabilitation SpecialistComment on above:Performed By: #### CBCAD, CMP, VITD, TSH reflex FT4, LIPD #### [facility] [address], [place] [id number] (S) [Mass/Vol]2.6 g/dLNormal1.9-3.7No[facility] SpecialistComment on above:Performed By: #### CBCAD, CMP, VITD, TSH reflex FT4, LIPD #### [facility] [address], [place] [id number] [Mass/Vol]89 mg/qNYaakcu11-14Ktrodzar [facility] SpecialistComment on above:Result Comment: For FASTING Glucose --- ADA reference ranges: Normal 65-99 mg/dl Prediabetes 100-125 Diabetes >/= 126Performed By: #### CBCAD, CMP, VITD, TSH reflex FT4, LIPD #### [facility] [address], [place] [id number] [Moles/Vol]5.0 mmol/LNormal3.5-5.5No[facility] SpecialistComment on above:Performed By: #### CBCAD, CMP, VITD, TSH reflex FT4, LIPD #### [facility] [address], [place] [id number] [Mass/Vol]6.6 g/dLNormal6.1-8.1NortherNewark Hospital SpecialistComment on above:Performed By: #### CBCAD, CMP, VITD, TSH reflex FT4, LIPD #### [facility] [address], [place] [id number] [Moles/Vol]143 mmol/WBhkyzb075-639Iytoxgyc [facility] SpecialistComment on above:Performed By: #### CBCAD, CMP, VITD, TSH reflex FT4, LIPD #### [facility] [address], [place] [id number] nitrogen [Mass/Vol]12 mg/dLNormal7-25Norttsehootsooi [facility]n [facility] SpecialistComment on above:Performed By: #### CBCAD, CMP, VITD, TSH reflex FT4, LIPD #### [facility] [address], [place] [id number] Panelon [id number] [Mass/Vol]135 mg/dLNormal 125-200NortChildren's Hospital for Rehabilitation SpecialistComment on above:Result Comment: Low risk < 200mg/dL Borderline risk 201-239 mg/dl High risk > or equal to 240Performed By: #### CBCAD, CMP, VITD, TSH reflex FT4, LIPD #### [facility] [address], [place] [id number] in HDL [Mass/Vol]44 mg/dLNormal>40No[facility] SpecialistComment on above:Result Comment: High Cardiovascular Risk HDL <40 mg/dL Low Cardiovascular Risk HDL > or equal to 60 mg/dlPerformed By: #### CBCAD, CMP, VITD, TSH reflex FT4, LIPD #### [facility] [address], [place] [id number] in LDL [Mass/Vol]65 mg/dLNormalNortChildren's Hospital for Rehabilitation SpecialistComment on above:Result Comment: LDL ATP III CLASSIFICATION LDL less than 100 mg/dl Optimal LDL 100-129 mg/dl Near or above optimal LDL 130-159 Borderline high LDL 160-189 High LDL greater than 189 mg/dl Very HighPerformed By: #### CBCAD, CMP, VITD, TSH reflex FT4, LIPD #### [facility] [address], [place] [id number] in VLDL [Mass/Vol]26 mg/dLNormalNorthern Pennsylvania Medical SpecialistComment on above:Performed By: #### CBCAD, CMP, VITD, TSH reflex FT4, LIPD #### [facility] [address], [place] [id number].total/Cholesterol in HDL [Mass ratio]3 {ratio} NormalNortSelect Medical Cleveland Clinic Rehabilitation Hospital, BeachwoodComment on above:Performed By: #### CBCAD, CMP, VITD, TSH reflex FT4, LIPD #### [facility] [address], [place] [id number] [Mass/Vol]130 mg/jKCzvmsc45-171OoqnkdtuSelect Medical Cleveland Clinic Rehabilitation Hospital, BeachwoodComment on above:Result Comment: TRIG ATPIII CLASSIFICATIONS TRIG less than 150 mg/dl Normal TRIG 150-199 mg/dl Borderline High TRIG 200-500 mg/dl High TRIG greather than 500 mg/dl Very HighPerformed By: #### CBCAD, CMP, VITD, TSH reflex FT4, LIPD #### [facility] [address], [place] [id number] SCREEN (MEDICARE)on 99-12-9648NOWU1.983 ng/mLNormal<4.000 [facility]tering Health SpringfieldComment on above:Result Comment: PSA Test Method: ECLIA/Mick e 601Performed By: #### PSA MC #### [facility] [address], [place] [id number] w/ Reflex to Free T4on 64-45-9149MFI6.150 uIU/mLNormal 0.400-4.500NoOhio Valley HospitalComuniversity of michigan health on above:Performed By: #### CBCAD, CMP, VITD, TSH reflex FT4, LIPD #### [facility] [address], [place] [id number] D 25-OHon 62-59-8888NMZ D 25 OH32 ng/mlNormal>29 [facility] SpringfieldComment on above:Result Comment: Vitamin D Status Deficiency <20 ng/mL Insufficiency 20-29 ng/mL Optimal 30-100 ng/mL Possible Toxicity >=150 ng/mLPerformed By: #### CBCAD, CMP, VITD, TSH reflex FT4, LIPD #### [facility] [address], [place] [id number]-88 PCR ([facility])on [id number]-CoV-2 (COVID-19) RNA GÓMEZ+probe Ql (Unsp spec)Not detectedNormalNOT DETECTEDThe [facility] Comment on above:Result Comment: This test is not yet approved or cleared by the [place] FDA. When there are no FDA-approved or cleared tests available, and other criteria are met, FDA can make tests available under an emergency access mechanism called an Emergency Use Authorization (EUA). The EUA for this test is supported by the Head Grease Maker of Health and Human Service's (HHS's) declaration that circumstances exist to justify the emergency use of in vitro diagnostics for the detection and/or diagnosis of the virus that causes COVID- 19. This EUA will remain in effect (meaning [...] of clinical signs and symptoms consistent with SARS-CoV-2.Performed By: #### FETIBC, FERR #### [facility] [address] [place] [address] Dr. Natalya Neely AUTO DIFFon [id number] #0.0 103/ulNormal0.0-0.1Peoples HospitalComment on above:Performed By: #### CBC #### [facility] [address] [place] [address] Dr. Natalya ArthurBasophils/100 WBC (Bld)0.3 %Normal0.2-2.0The [facility] Comment on above:Performed By: #### CBC #### [facility] [address] [place] [address] Dr. Natalya Gilliam #0.0 103/ulNormal0.0-0.7The [facility] HospitalComment on above: Performed By: #### CBC #### [facility] [address] [place] [address] Dr. Natalya Pearsonosinophils/100 WBC (Bld)0.1 %Critically low0.9-7.0The [place] Valley HospitalComment on above:Performed By: #### CBC #### [facility] [address] [place] [address] Dr. Natalya Pearsonrythrocyte distribution width (RBC) [Ratio]13.2 %Agrdxq43.0-15.0 The [facility] Valley HospitalComment on above:Performed By: #### CBC #### [facility] [address] [place] [address] Dr. Natalya ArthurHematocrit (Bld) [Volume fraction]46.5 %Kzyhvy19.0-54.0The [facility] HospitalComment on above:Performed By: #### CBC #### [facility] [address] [place] [address] Dr. Natalya ArthurHemoglobin (Bld) [Mass/Vol]15.2 g/gKArqdne06.0-18.0The [facility] HospitalComment on above:Performed By: #### CBC #### [facility] [address] [place] [address] Dr. Natalya Thompson #0.04 10e3/ulCritically high0.00-0.03The [facility] Comment on above:Performed By: #### CBC #### [facility] [address] [place] [address] Dr. Natalya Thompson %0.3 %Normal0.0-0.5The [facility] HospitalComment on above: Performed By: #### CBC #### [facility] [address] [place] [address] Dr. Natalya CarranzaMPH #1.2 103/ulNormal1.2-3.8The [facility] HospitalComment on above:Performed By: #### CBC #### [facility] [address] [place] [address] Dr. Natalya Carranzamphocytes/100 WBC (Bld)10.3 %Critically low20.5-60.0The [facility] HospitalComment on above:Performed By: #### CBC #### [facility] [address] [address] [address] Natalya Esparza DIFF REQNONormalThe [facility] Valley HospitalComment on above: Performed By: #### CBC #### [facility] [address] [place] [address] Dr. Natalya Kendall (RBC) [Entitic mass]31.0 mmQmxgrl14.9-34.0The [facility] HospitalComment on above:Performed By: #### CBC #### [facility] [address] [place] [address] Dr. Natalya Kendall (RBC) [Mass/Vol]32.7 g/fDGdkteh95.9-35.2The [facility] HospitalComment on above:Performed By: #### CBC #### [facility] [address] [place] [address] Dr. Natalya Kendall (RBC) [Entitic vol]94.9 fLCritically high80.0-94.0The [facility] HospitalComment on above:Performed By: #### CBC #### [facility] [address] [place] [address] Dr. Natalya Burks #1.1 103/ulCritically high0.3-0.8ThBellevue Hospital Comment on above:Performed By: #### CBC #### [facility] [address] [place] [address] Dr. Natalya Luzocytes/100 WBC (Bld)9.2 %Normal1.7-12.0[facility] Comment on above:Performed By: #### CBC #### [facility] [address] [place] [address] Dr. Natalya Crowley #9.6 103/ulCritically high1.4-6.5ThBellevue Hospital Comment on above:Performed By: #### CBC #### [facility] [address] [place] [address] Dr. Natalya Whittenutrophils/100 WBC (Bld)79.8 %Critically high43.0-75.0The [facility] HospitalComment on above:Performed By: #### CBC #### [facility] [address] [address] [address] Natalya Watson mean volume (Bld) [Entitic vol]10.3 fLNormal9.5-13.5The [facility] HospitalComment on above:Performed By: #### CBC #### [facility] [address] [place] [address] Dr. Natalya ArthurPLT126 103/ulCritically cab003-940Akq [facility] HospitalComment on above:Performed By: #### CBC #### [facility] [address] [place] [address] Dr. Natalya ArthurRBC4.90 106/ulNormal4.70-6.10The [facility]. Elizabeth Hospitalment on above:Performed By: #### CBC #### [facility] [address] [place] [address] Dr. Natalya ArthurWBC12.1 103/ulCritically high4.0-11.0The [facility] on above:Performed By: #### CBC #### [facility] [address] [place] [address] Dr. Natalya Byrnes URINE PROFILEon 11-11-8109Nukfxtikm Ql (U)NegativeNormal NEGATIVEPeoples HospitalComuniversity of michigan health on above:Performed By: #### HARLEY UMICRO #### [facility] [address] [place] [address] Dr. Natalya ArthurClarity (U)CLEARNormalCLEARThe [facility] HospitalComun[facility] of [facility] on above: Performed By: #### HARLEY UMICRO #### [facility] [address] [place] [address] Dr. Natalya Singh (U)YELLOWNormalYELLOWPeoples HospitalComuniversity of michigan health on above: Performed By: #### HARLEY UMICRO #### [facility] [address] [place] [address] Dr. Natalya Fitzgerald micrscopic examination will be performed if indicated. NormalThe [facility] HospitalComuniversity of [facility] on above:Performed By: #### ERUR, UMICRO #### [facility] [address] [address] [address] Natalya ArthurGlucose Ql (U)NegativeNormalNEGATIVEPeoples HospitalComment on above:Performed By: #### ROHAN SOUZARO #### [facility] [address] [address] [address] Natalya ArthurHemoglobin Ql (U)LARGEAbnormalNEGATIVEThe [facility] Comment on above:Performed By: #### MICK SOUZA #### [facility] [address] [address] [address] Natalya ArthurKetones Ql (U)NegativeNormalNEGATIVEPeoples HospitalComment on above:Performed By: #### MICK SOUZA #### [facility] [address] [place] [address] Dr. Natalya ArthurLEUKOCYTESNegativeNormalNEGATIVEThe [facility] HospitalComment on above:Performed By: #### MICK SOUZA #### [facility] [address] [place] [address] Dr. Natalya ArthurNitrite Ql (U)NegativeNormalNEGATIVEPeoples HospitalComment on above:Performed By: #### MICK SOUZA #### [facility] [address] [place] [address] Dr. Natalya ArthurpH (U)6.0 [pH]Normal5-9The [facility] HospitalComment on above: Performed By: #### MICK SOUZA #### [facility] [address] [place] [address] Dr. Natalya ArthurProtein (U) [Mass/Vol]100 mg/dLAbnormalNEGATIVE/ TRACEThe [facility] HospitalComment on above:Performed By: #### MICK SOUZA #### [facility] [address] [place] [address] Dr. Natalya ArthurSPEC GRAVITY>=1.961Dnkqlwpx8.005-<=1.025The [facility] Comment on above:Performed By: #### MICK SOUZA #### [facility] [address] [place] [address] Dr. Natalya Cota MICRO INDINDICATEDNoUniversity Hospitals Health Systeme [facility] HospitalComment on above: Performed By: #### MICK SOUZA #### [facility] [address] [place] [address] Dr. Natalya ArthurUrobilinogen Qn (U)0.2 {Vonnie'U}/dLNormal0.2 - 1.0The [place] [facility] HospitalComment on above:Performed By: #### MICK SOUZA #### [facility] [address] [place] [address] Dr. Natalya ArthurLACTATE/LACTIC ACIDon 16-24-6399Znikaam [Moles/Vol]1.7 mmol/L Normal0.7-2.0The [facility] HospitalComuniversity of [facility] health on above:Performed By: #### CVDTBH #### [facility] [address] [place] [address] Dr. Natalya ArthurLIPASEon 83-44-3202Rdihtg [Catalytic activity/Vol]143.0 U/LNormal 23.0-300.0The [facility] HospitalComment on above:Performed By: #### ROMYTBH #### [facility] [address] [place] [address] Dr. Natalya Pozo 14(COMP METB)on 57-67-2673Nffmdmy [Mass/Vol]3.6 g/dLNormal 3.5-5.0The [facility] HospitalComment on above:Performed By: #### CVDTBH #### [facility] [address] [place] [address] Dr. Natalya ArthurAlbumin/Globulin [Mass ratio]0.8 {ratio}NormalThe [facility] HospitalComuniversity of [facility] health on above:Performed By: #### CVDTBH #### [facility] [address] [place] [address] Dr. Natalya ArthurALP [Catalytic activity/Vol]108 U/HCtrlip96-686Iiw [facility] HospitalComment on above:Performed By: #### CVDTBH #### [facility] [address] [address] [address] Natalay RamirezT [Catalytic activity/Vol]65 U/FPlahqq38-59Aoq [facility] HospitalComment on above:Performed By: #### CVDTBH #### [facility] [address] [place] [address] Dr. Natalya ArthurAnion gap [Moles/Vol]13.9 mmol/LNormalPeoples Hospital Comment on above:Performed By: #### CVDTBH #### [facility] [address] [place] [address] Dr. Natalya ArthurAST [Catalytic activity/Vol]42 U/JWrbzrv41-41Nbz [facility] HospitalComment on above:Performed By: #### CVDTBH #### [facility] [address] [place] [address] Dr. Natalya ArthurBilirubin [Mass/Vol]1.0 mg/dLNormal0.2-1.3TPomerene Hospital Comment on above:Performed By: #### CVDTBH #### [facility] [address] [place] [address] Dr. Natalya ArthurCalcium [Mass/Vol]9.7 mg/dLNormal8.4-10.2[facility] Comment on above:Performed By: #### CVDTBH #### [facility] [address] [place] [address] Dr. Natalya ArthurChloride [Moles/Vol]100 mmol/ZTwdcji68-220Tja [facility] Comment on above:Performed By: #### CVDTBH #### [facility] [address] [place] [address] Dr. Natalya ArthurCO2 [Moles/Vol]28.2 mmol/HRftbqq05.0-30.0The [facility] Comment on above:Performed By: #### CVDTBH #### [facility] [address] [place] [address] Dr. Natalya ArthurCreatinine [Mass/Vol]1.18 mg/dLNormal0.66-1.25The [facility] HospitalComment on above:Performed By: #### CVDTBH #### [facility] [address] [address] [address] Natalya PearsonGFR-AF LUXEMBOURGER>60Normal>=60The [facility] HospitalComment on above:Performed By: #### CVDTBH #### [facility] [address] [address] [address] Natalya PearsonGFR-NON AF LUXEMBOURGER=60Normal>=60The [facility] HospitalComment on above:Performed By: #### CVDTBH #### [facility] [address] [address] [address] Natalya ArthurGlobulin (S) [Mass/Vol]4.5 g/dLNormalThe [facility] HospitalComment on above:Performed By: #### CVDTBH #### [facility] [address] [place] [address] Dr. Natalya ArthurGlucose [Mass/Vol]121 mg/dLCritically wlmj78-755Dnr [facility] HospitalComment on above:Performed By: #### CVDTBH #### [facility] [address] [place] [address] Dr. Natalya ArthurPotassium [Moles/Vol]4.1 mmol/LNormal3.4-5.0The [facility] Comment on above:Performed By: #### CVDTBH #### [facility] [address] [place] [address] Dr. Natalya ArthurProtein [Mass/Vol]8.1 g/dLNormal6.1-8.2The [facility] Comment on above:Performed By: #### CVDTBH #### [facility] [address] [place] [address] Dr. Natalya ArthurSodium [Moles/Vol]138 mmol/QPzjfxs867-721Bxc [facility] Comment on above:Performed By: #### CVDTBH #### [facility] [address] [place] [address] Dr. Natalya ArthurUrea nitrogen [Mass/Vol]17.0 mg/dLNormal9.0-20.0The [facility] HospitalComment on above:Performed By: #### CVDTBH #### [facility] [address] [address] nitrogen/Creatinine [Mass ratio]14.4 mg/mgKettering Health TroyComment on above:Performed By: #### CVDTBH #### [facility] [address] [place] [address] Dr. Natalya Dallas, HIGH SENSITIVITYon 82-46-2994JNLYST86.0 pg/mLCritically high4.0-42.2The St. Elizabeth Hospitalment on above:Result Comment: CUT-OFF POINTS HAVE BEEN ESTABLISHED BASED ON THE FOURTH UNIVERSAL DEFINITIONS OF MYOCARDIAL INFARCTION. THE UPPER REFERENCE LIMIT (URL) OF TROPONIN, DEFINED THE 99TH PERCENTILE OF cTnI DISTRIBUTION IN A REFERENCE POPULATION, HAS BEEN CONFIRMED THE DECISION THRESHOLD FOR ID DIAGNOSIS.Performed By: #### CVDTBH #### [facility] [address] [place] [address] Dr. Natalya Kemp MICROSCOPIC ONLYon 52-90-8539WFNLWCOJV CRYSTALSFEWKettering Health TroyComment on above:Performed By: #### HARLEY UMICRO #### [facility] [address] [place] [address] Dr. Natalya BarnardTRACEAbnormalNONE SEENPeoples HospitalComuniversity of michigan health on above:Performed By: #### HARLEY UMICRO #### [facility] [address] [place] [address] Dr. Natalya Barnard identified Cx Nom (U)NOT INDICATEDNoAshtabula General HospitalComment on above:Performed By: #### ERUR UMICRO #### [facility] [address] [place] [address] Dr. Natalya Zavaleta SEENNormalNONE SEENPeoples HospitalComuniversity of michigan health on above:Performed By: #### ERUR, UMICRO #### [facility] [address] [place] [address] Dr. Natalya Lealystals LM Nom (Urine sed)SEENAbnoalNONE SEENPeoples HospitalComuniversity of mich[facility] health on above:Performed By: #### ERUR UMICRO #### [facility] [address] [address] [address] Hoang ChangEpithelial cells LM Ql (Urine sed)FEWAbnormalNONE SEEN /RAREThe [facility] HospitalComuniversity of [facility] on above:Performed By: #### ERUR, UMICRO #### [facility] [address] [address] [address] Natalya ArthurMUCOUSLARGEAbnormalNONE SEENThe [facility] HospitalComment on above:Performed By: #### ERUR, UMICRO #### [facility] [address] [address] [address] Natalya ArthurGstdwKZX12-70Kxnxjwpn9-5Khf [facility] HospitalComment on above: Performed By: #### ERUR, UMICRO #### [facility] [address] [address] [address] Natalya ArthurWBC0-2AbnormalNONE SEENThe [facility] HospitalComment on above: Performed By: #### ERUR, UMICRO #### [facility] [address] [address] [address] Natalya ArthurUS SINGLE QUAD RT UPPERon 18-07-3050JL SINGLE QUAD RT UPPER EXAMINATION: US SINGLE [...] Electronically authenticated by: STEPHEN ARBOLEDA Date: 2021-02-03 19:08[facility] TroyXR CHEST 1 Von [id number] CHEST 1 VEXAMINATION: XR CHEST 1 V HISTORY: Rib pain COMPARISON: 09/24/2020 [...] Electronically authenticated by: STEPHEN ARBOLEDA Date: 2021-02-03 19:22[facility] TroyCardiovascular Lab Reporton [id number] Lab Report [facility] MR #: [id number] Department of Physician: Artis Horner MEric Division of Service Date: 10/30/2018 Cardiology Birthdate: 1945 Adult Cardiovascular Room #: [address] [place] [address] Cardiovascular Laboratory Report CLINICAL PRESENTATION: Pankaj Payne is a 73-year-old male with past medical history significant for CAD, status post prior PCI of the left circumflex coronary artery in 02/2018; hypertension; hyperlipidemia; hypothyroidism. [facility] He reports worsening fatigue that was [...] noted. 4. Outpatient followup with Dr. Tenorio, [facility]. PROCEDURES: Coronary angiogram, left heart catheterization, [...] infiltrated over the right radial artery. A 6-Prydeinig Terumo Glidesheath slender was placed in the right radial artery. The radial anti-vasospasm cocktail of verapamil 2.5 mg and nitroglycerin 200 mcg was administered through the sheath. All catheter exchanges were made over the Partly guidewire. Initially, a 5-Prydeinig Lander catheter was used to engage the coronary arteries. The Lander catheter engaged the right coronary artery, but did not engage the left main coronary artery well. I then exchanged over wire to a 6-Prydeinig JL3.5 catheter which engaged the left main coronary artery. Coronary angiogram was performed in multiple orthogonal views using hand injection of contrast. At this point, it was apparent that the right PDA had intermediate stenosis, I elected to proceed with IFR evaluation. The [place] Verrata wire was zeroed outside of the body and then normalized at the catheter guide tip. Heparin anticoagulation was used for this procedure and the ACT was maintained greater than 200 seconds. The [place] Verrata wire was then manipulated to the [...] Schafer M.D. Date Trans: 10/31/2018 05:07 Rishabh/katelin DN_JN:[id number] cc: Frantz Conley M.D. [address] [id number] Frantz Tenorio M.D. [address] [id number]opedic CenterOperative Reporton [id number] ReportDate of Surgery: 02/25/2018SURGEON: Hardeep Fraga D.O.PREOPERATIVE DIAGNOSIS: Nuclear sclerotic cataract, right eyePOSTOPERATIVE DIAGNOSIS: Nuclear sclerotic cataract, right eyeOPERATION: Cataract extraction with intraocular lens placement, right eyeANESTHESIA: TopicalCOMPLICATIONS: NoneESTIMATED BLOOD LOSS: ZeroPROCEDURE: The patient was brought to the Operating Room in the supineposition.After proper identification, the right eye was prepped anddraped in a sterile ophthalmic fashion. Two drops of Tetracaine wereplaced into the eye and a paracentesis was created at the two oclockposition. Approximately 0.1 cc of unpreserved Xylocaine was injected intothe anterior chamber and this was followed by Amvisc Plus. Using a 2.6 mmkeratome blade, a clear corneal [facility]. A cystotome was fashioned out of a 25 gauge needle and acurvilinear capsulorrhexis was begun and continued for 360 degrees withUtrata forceps. Balanced Salt Solution on a cannulawas injected under theanterior capsule to hydrodissect as [...] Additional Balanced Salt Solution was injected intothe anteriorchamber to pressurize the eye to approximately 20-22 [...] day for postoperative care.Hardeep Fraga D.O.glsDictated: 02/25/2018 #[id number]: 02/25/2018 #[id number]: Sera Cabrera [facility]edo Medical CenterComment on above:Result Comment: Electronically Signed By: Hardeep Fraga DO\.br\Date and Time Signed: 03/03/18 12:57 EST Cardiovascular Lab Reporton [id number] Lab ReportUnOhioHealth Mansfield Hospital [facility] MR #: [id number] Department of Physician: Artis Pinedo M.D. Division of Service Date: 02/28/2018 Cardiology Birthdate: 1945 Adult Cardiovascular Room #: 3AB [address] [place] [address] Cardiovascular Laboratory Report FINAL IMPRESSION: 1. Successful [...] fashion. Using a modified Seldinger technique, a 5-Prydeinig micropuncture was placed in right internal jugular vein. This was upsized to a regular 6-Prydeinig sheath. Then, a 6-Prydeinig Trinh was used for right heart catheterization. The right heart catheterization was performed. Access of the right radial artery under ultrasound guidance and in the right ulnar artery under ultrasound guidance a 6-Prydeinig sheath was placed and then used a 6-Prydeinig JL3.5 and JR5 catheter for coronary angiography. After baseline angiography was performed, the case was discussed by his referring printing plate maker, Dr. Tenorio, as well as with the patient's family. Also given multiple lesions in right , circumflex coronary artery and a distal LAD lesion, we also discussed CABG as an option. 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 We decided to treat circumflex. 6-Prydeinig XB 3.0 guide was used to engage the left main coronary ostium. A 0.014 [place] wire was passed across the proximal circumflex into the 1st obtuse marginal branch. Predilatation was performed using a 2.5 x 15 balloon. Then, we deployed a 2.5 x 16 Synergy stent. This was post-dilated with a 2.75 x 15 noncompliant at 24 atmospheres. Final angiography showed good stent result in the proximal circumflex into the 1st obtuse marginal branch. The [place] circumflex stayed open. There were no complications. [...] Barahona M.D. Date Trans: 03/01/2018 03:16 A/katelin DN_JN:[id number] cc: JYOTI Villalobos [address] [facility] [address] Frantz Conley M.D. [address] [place] [id number] Frantz Tenorio M.D. 1355 [facility] [address]QkvidmJykCrystal Clinic Orthopedic CenterHistory and Physicalon 70-70-6476Yzafezg and PhysicalMR#: [id number] [facility] Pt. Name: Pankaj Payne Admitted: 02/28/2018 [...] Lopez M.D. Date Trans: 02/28/2018 04:44 P/katelin DN_JN:[id number] Clinic Orthopedic CenterCoding Summary. on 47-99-0121Ztqafh Summary.CODING DATE: 02/26/2018 [facility] STATUS: Home (Routine DC) PAYOR: Medicare APC DESCRIPTION 5491 Level 1 Intraocular Procedures ADMIT DX: REASON FOR VISIT DX: H25.11 Age-related nuclear cataract, right eye FINAL DX: PRINCIPAL: H25.11 Age-related nuclear cataract, right eye SECONDARY: H25.041 Posterior subcapsular polar age-related cataract, right eye E03.9 Hypothyroidism, unspecified PYMT PROC APC STAT DESCRIPTION DOCTOR NAME DATE 91027 5491 J1 Extracapsular cataract Hardeep Fraga DO 02/25/2018 removal with insertion of intraocular lens prosthesis (1 stage procedure), manual or mechanical technique (eg, irrigation and aspiration or phacoemulsification) RT Right side (used to identify procedures performed on the right side of the body) NOTE: The code number assigned matches the documented diagnosis and / or procedure in the patient's chart. However, the n arrative phrase printed from the coding software may appear abbreviated, or result in slightly different terminology. Coded By: Lashae Caldwell Date Saved: 02/26/2018 04:03 [facility] Intraoperative Recordon [id number] OR Intraoperative RecordIntraOp Document Type FT Summary Primary Physician: Hardeep Fraga DO Finalized Date/Time: 02/26/18 14:08:09 Pt. Name: PANKAJ PAYNE/Sex: 1945 Male Med Rec #: [id number] Physician: Hardeep Fraga DO Financial #: [id number] Pt. Type: A Room/Bed: [place] [address] Admit/Disch: 02/25/18 08:23:00 - 02/25/18 12:00:00 Institution: Case Times FT Entry 1 Patient Times In Room 02/25/18 11:00:00 Out Room 02/25/18 11:18:00 Procedure Times Start 02/25/18 11:05:00 Stop 02/25/18 11:16:00 Anesthesia Times Last Modified By: Elayne Agosto CST 02/25/18 11:17:41 General Comments: 02/26/18 Chart opened to review and send charges Estela Agosto CST Case Attendance FT Entry 1 Entry2 Entry 3 Case Attendee Hardeep Fraga DO, RN, Arnold ALEGRIAN, RN, Sussy Role Performed Surgeon - Primary Beveling And Edging Machine Operator - Primary Beveling And Edging Machine Operator - Primary Time In 02/25/18 11:00:00 02/25/1811:00:00 02/25/18 11:00:00 Time Out 02/25/18 11:18:00 02/25/18 11:18:00 02/25/18 11:18:00 ProcedureCATARACT EXTRACTION W/ CATARACT EXTRACTION W/ CATARACT EXTRACTION W/ INTRAOCULAR LENS(Right) INTRAOC ULAR LENS(Right) INTRAOCULAR LENS(Right) Comments Last Modified By: Tiffanie DAMON, Arnold Moreno RN, Arnold Moreno RN, Arnold Morton 02/25/18 11:17:52 02/25/18 11:17:52 02/25/18 11:17:52 Entry 4 Entry 5 Case Attendee Zoila Mtz CST, CST, Anameseret R Role Performed Scrub - Primary Scrub [...] Modified By: Arnold Moreno RN 02/25/18 11:04:57 Post- Care Text: The patient is free from signs [...] Modified By: Arnold Moreno RN 02/25/18 11:17:56 GeneralCase Data FT Pre-Care Text: Classifies surgical wound, implements aseptic technique, initiates traffic control Entry 1 Case Information OR OR 3 FT Case Level Level 2 Wound Class 1 - Clean Specialty Ophthalmology Preop Diagnosis CATARACT RIGHT EYE Postop Same As Preop Yes Postop Diagnosis CATARACT RIGHT EYE Outcomes Met? Yes Last Modified By: Arnold Moreno RN 02/25/18 10:06:19 Post-Care Text: Thepatient is free from signs and symptoms of infection Skin Assessment (Pre Procedure) FT Pre-Care Text: Implements protective measures to prevent skin/ tissue injury due to thermal or mechanical sources Evaluates for signs and symptoms of physical injury to skin and tissue Entry 1 Skin Integrity Warm, Dry, [place], Unable Outcomes Met? Yes to Visualize [...] Moreno RN, Outcomes Met? Yes Clark MARAVILLA, RN, Sussy Last Modified By: Arnold Moreno RN 02/25/18 10:08:20 Post-Care Text: The patient is free from signs and symptoms of injury related to positioning Patient Care Devices FT Pre- Care Text: Implements protective measures to prevent skin/ tissue injury due to thermal or mechanical sources Entry 1 Entry 2 Entry 3 Equipment Type MICROSCOPE EYE[F] MONITORCHARGE SURGERY PHACO UNIT[F] [F] Equipment Number Equipment [...] Instruments Status Correct Correct Time By Ruffing CONTROL CLERK AUDITING, Zoila E Ruffing CONTROL CLERK AUDITING, Zoila E Outcomes Met? Yes Yes Last Modified By: Arnold Moreno RN, RN, Kail M 02/25/18 10:09:08 02/25/18 10:09:08 Post- Care Text: The patient is free from signs [...] symptoms of infection Departure From OR FT Pre-CareText: Transports according to individual needs. Evaluates for signs and symptoms of skin and tissueinjury as a result of transfer or transport. Entry 1 Via Cart Safety Precautions Side Rails Up PostOp Destination Pre Surgery/ASU Transported By Arnold Moreno RN Patient Status Stable Skin. Condition Warm, [place], Dry Airway Maintenance Oxygen in Use? [...] Pre-Care Text: Verifies allergies, administers prescribed medications andsolutions, administers prescribed antibiotic therapy and immunizing agents as ordered, evaluates response to medications Administers prescribed medications and solutions Entry 1 Expiration Date Yes Outcomes Met? Yes Verified Last Modified By: Arnold Moreno RN 02/25/18 10:11:38 Post-Care Text: The patient received appropriate medication(s) safely administered during the perioperative period For Zhang-Cowley please see scanned medication reconcilliation form for medications used at the field during the procedure. Implant Log FT Pre-Care Text: Records devices implanted during the operative or invasive procedure Entry 1 Implant/Explant Implant Implant Identification Description ROSENDA [id number] 12.50MM Serial Number [id number] 13.50 [[id number]][F] Lot Number [id number] Beader Tender FT[employer] Catalog ?# [id number][F] Expiration Date 05/23/19 Usage Data Implant Site right eye Quantity 1 Outcomes Met? Yes Last Modified By: Arnold Moreno RN 02/25/18 11:08:01 Post-Care Text: The patient isfree from signs and symptoms of injury caused by extraneous objects Case Comments Finalized By: Elayne Dave CST Document Signatures Signed By: Arnold Moreno RN 02/25/18 11:18 Elayne Agosto CST 02/26/18 14:08NoMary Rutan HospitalHistory and Physicalon 56-47-8783Tfuwjbc and PhysicalHOSPITAL REGULATIONS: ALL Positive Important Negative Findings Shall BeRecordedDATE [...] Unchanged from previously dictated.ALLERGIES TO MEDICATIONS: Unchanged frompreviously dictated.REVIEW OF SYSTEMS: Unchanged from previously dictated.PHYSICAL EXAMINATION: Unchanged from previously dictated.ASSESSMENT/PLAN: Visually significant cataract, right eye. After risk s,benefits, alternatives as well as expectations were delivered to thepatient, he elected to go forward with cataract removal. He understandsthose risks to include but are not limited to infection, bleeding, loss ofvision or loss of the eye itself. Secondly, he understands thatpostoperatively he islikely to require spectacle correction for his bestvisual acuity. Thirdly, a complete ophthalmic examination was performedand there is not determined to be any other source of vision decline otherthan that of the cataract. After understanding all risks as well asexpectations, he elected to go forward with the procedure as listed above,and will be doing so in the near future.Viola CabreraaekDictated: 02/24/2018 #[id number] 02/25/2018 #[id number]: Hardeep Fraga D.O.[facility] HospitalComment on above:Result Comment: Electronically Signed By: Hardeep Fraga DO\.br\Date and Time Signed: 02/25/18 10:24 ESTInpatient Patient Summaryon 27-10-1697Obaseicic Patient SummaryChildren'S Hospital Of ColumbusClinical Discharge InstructionsPERSON INFORMATION Name: PANKAJ PAYNE PHYSICIANS Admitting Physician: Hardeep Fraga DOAttending Physician: Hardeep Fraga DO PCP: FRANTZ CONLEY MD BDischarge Diagnosis: Cataract Comment: PATIENT EDUCATION INFORMATIONInstructions:Medication Leaflets:Follow up:With: Address: When: Hardeep Fraga Formerly [facility] [address], [facility] [address] [place] [address] Business (1) Within 1 to 2 days MEDICATION LISTComment:[facility] HospitalMain OR PACU II Recordon [id number] OR PACU II Record PACU Phase II Document Type FT Summary Primary Physician: Hardeep Fraga DO Finalized Date/Time: 02/25/18 12:33:41 Pt. Name: PANKAJ PAYNE Rishabh Díaz/Sex: 1945 Male Med Rec #: [id number] Physician: Hardeep Fraga DO Financial #: [id number] Pt. Type: A Room/Bed: [place] [address] Admit/Disch: 02/25/18 08:23:55 - Institution: Case Times [...] control Verifies allergies, administers prescribed medications and jordan utions, evaluates response to medications Entry 1 In [...] The patient's value system, lifestyle, ethnicity, and cultureare considered, respected, and incorporated into the perioperative [...] Signatures Signed By: Lissa Pope RN 02/25/18 12:33NoMary Rutan HospitalMain OR Preoperative Recordon [id number] OR Preoperative RecordPreOp Document Type FT Summary Primary Physician: Hardeep Fraga DO Finalized Date/Time: 02/25/18 11:05:22 Pt. Name: PAYNEPANKAJ/Sex: 1945 Male Med Rec #: [id number] Physician: Hradeep Fraga DO Financial #: [id number] Pt. Type: A Room/Bed: [place] [address] Admit/Disch: 02/25/18 08:23:55 - Institution: Case Times [...] Signatures Signed By: Arnold Moreno RN 02/25/18 11:05[facility] HospitalMain OR Preoperative RecordHolding Area Document Type FT Summary Primary Physician: Hardeep Fraga DO Finalized Date/Time: 02/25/18 08:46:23 Pt. Name: PANKAJ PAYNE /Sex: 1945 Male Med Rec #: [id number] Physician: Hardeep Fraga DO Financial #: [id number] Pt. Type: A Room/Bed: [place] [address] Admit/Disch: 02/25/18 08:23:55 - Institution: Case Times [...] Signatures Signed By: Lissa Pope RN 02/25/18 08:46NoMary Rutan HospitalPatient Education - Texton 02-25-2018 Patient Education - [facility] HospitalProgress Note-Physician on 40-56-7304Sfbbidr mass concPatient: PANKAJ PAYNE Age: 72 years Sex: Male : 1945 Associated Diagnoses: None Author: Hardeep Fraga DO Postoperative Information Date/ Time: 02/25/18 11 :17:00 Preoperative Diagnosis: Senile Cataract - OD . Postoperative Diagnosis: same . Procedure: Cataract Extraction with IOL placement - OD. Anesthesia Method: Local. Performed by: Hardeep Fraga DO. Specimens Removed: none . Estimated Blood Loss: 0 ml. Complications: None.[facility] HospitalComment on above:Result Comment: Electronically Signed By: Hardeep Fraga DO\.br\Date and Time Signed: 02/25/18 11:17 ESTOperative Reporton 58-11-4208Prmdrbamf ReportDate of Surgery: 02/11/2018SURGEON: Hardeep Fraga D.O.PREOPERATIVE DIAGNOSIS: [...] of a 25 gauge needle and acurvilinear capsulorrhexiswas begun and continued for 360 degrees withUtrata forceps. Balanced Salt Solution on a cannula wasinjected under theanterior capsule to hydrodissect as well [...] wasinjected into the posterior bag as well. Thiswas dialed into positionwith a secondhand piece and [...] drop of Iopidine, one drop of prednisolone acetateandone drop of Ocuflox were placed into the eye and a shield was placed overtop. The patient was sent to the Postoperative Area in satisfactorycondition to follow up the following day for postoperative care.Hardeep Fraga D.O.lkrDictated: 02/11/2018 #[id number]: 02/12/2018 #[id number]: JonathanD. 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 Name: PAYNE, JACK Rishabh Landaverde/Sex: 1945 Male Med Rec #: [id number] Physician: Hardeep Fraga DO Financial #: [id number] Pt. Type: A Room/Bed: [place] [address] Admit/Disch: 02/11/18 08:31:00 - 02/11/18 12:00:00 Institution: [...] Signed By: HEMANT Macdonald RN, Andrea 02/12/18 07:26[facility] HospitalHistory and Physicalon 46-87-3458Hochrkg and PhysicalHOSPITAL REGULATIONS: ALL Positive Important Negative Findings Shall BeRecordedDATE [...] He denies.PAST MEDICAL HISTORY: Fatty liver and hypothyroidism.PSYCHOSOCIAL HISTORY: He denies tobacco, alcohol, or recreational drugabuse.SYSTEMIC MEDICATIONS:1. Fluzone.2. Levothyroxine.ALLERGIES: He denies.REVIEW OF SYSTEMS: No pertinent positives.PHYSICAL EXAMINATIONVITAL SIGNS: Blood pressure is measured at 117/77 with a respiration rateof 12 and pulse of 75.GENERAL: He is awake, alert and oriented times three, well developed, wellnourished, in no acute distress.HEART: Regular rate and rhythm.LUNGS:Clear bilaterally.ABDOMEN: Soft, non-tender, non- distended.EXTREMITIES: No pitting edema.OPHTHALMIC: Ophthalmic examination revealed a visual acuity of 20/60-1 inthe right eye and 20/100+2 in the left eye. Pupils, motility, musclebalance and confrontational visual bustamante were within normal limitsbilaterally. Pressures were measured at 16 bilaterally. Slit lampexamination revealed blepharitis witha severe decrease in tear filmbilaterally. Conjunctivae, cornea, anterior chamber and iris were with innormal limits bilaterally. Lens status demonstrated 2 to 3+ nuclearsclerosis with trace PSC in the right eye and 2 to 3+ nuclear sclerosiswith 1+ PSC in the left eye. Fundus examination revealed a good view withgood dilation bilaterally. Optic discs, maculae, vessels, periphery andvitreous were within normal limits bilaterally.ASSESSMENT/PLAN: Visually significant cataract, left eye. After risks,benefits, alternatives as well as expectations were delivered to thepatient, he elected to go forward with cataract removal. He understandsthose risks to include but are not limited to infection, bleeding, loss ofvision or loss of the eye itself. Secondly, he understands thatpostoperatively he is l ikely to require spectacle correction for his bestvisual acuity. Thirdly, a complete ophthalmic examination was performedand there is not determined to be any other source of vision decline otherthanthat of the cataract. After understanding all risks as well asexpectations, he elected to go forward with the procedure as listed above,and will be doing so in the near future.Hardeep Fraga D.O.aekDictated: 02/10/2018 #[id number] 02/11/2018 #[id number]: Hardeep Fraga D.O.[facility] HospitalComment on above:Result Comment: Electronically Signed By: Hardeep Fraga DO\.br\Date and Time Signed: 02/11/18 08:10 ESTInpatient Patient Summaryon [id number] Patient SummaryChildren'S Hospital Of ColumbusClinical Discharge InstructionsPERSON INFORMATION Name: PAYNE, JACK Rishabh PHYSICIANS Admitting Physician: Hardeep Fraga DOAttending Physician: Hardeep Fraga DO PCP: FRANTZ CONLEY MD BDischarge Diagnosis: Cataract Comment: PATIENT EDUCATION INFORMATIONInstructions:ROSIE- After Surgery Eye (Custom)Medication Leaflets:Follow up:With: Address: When: Hardeep Fraga [facility] [address] [facility], [facility] [address] [place] [phone] Business (1) Within 1 to 2 days MEDICATION LISTComment:[facility] HospitalMain OR Intraoperative Recordon [id number] OR Intraoperative RecordIntraOp Document Type FT Summary Primary Physician: Hardeep Fraga DO Finalized Date/Time: 02/11/18 13:09:49 Pt. Name: PANKAJ PAYNE D.O.B./Sex: 1945 Male Med Rec #: [id number] Physician: Hardeep Fraga DO Financial #: [id number] Pt. Type: A Room/Bed: [facility]/ Ad jarocho/Disch: 02/11/18 08:31:00 - 02/11/18 12:00:00 Institution: Case Times FT Entry 1 Patient Times In Room 02/11/18 11:04:00 Out Room 02/11/18 11:24:00 Procedure Times Start 02/11/18 11:11:00 Stop 02/11/18 11:22:00 Anesthesia Times Last Modified By: Elayne Agosto CST 02/11/18 11:24:30 General Comments: 02/11/18 Chart opened to review and send charges Estela Agosto CST Case Attendance FT Entry 1 Entry 2 Entry 3 Case Attendee Rosie JEAN, Hardeep Messina RN, Rosanna Moreno RN, Arnold Morton Role Performed Surgeon - Primary Beveling And Edging Machine Operator - Primary Beveling And Edging Machine Operator - Primary Time In 02/11/18 11:04:00 02/11/18 11:04:00 02/11/18 11:04:00 Time Out 02/11/18 11:24:00 02/11/18 11:24:00 02/11/18 11:24:00 Procedure CATARACT EXTRACTION W/ CATARACT EXTRACTION W/ CATARACT EXTRACTION W/ INTRAOCULAR LENS(Left) INTRAOCULAR LENS(Left) INTRAOCULAR LENS(Left) Comments Last Modified By: Siddharth RN, Rosanna Messina RN, Rosanna Vanegas RN 02/11/18 11:24:31 02/11/18 11:24:31 02/11/18 11:24:31 Entry 4 Entry 5 Case Attendee Marisela Huber CST CONTROL CLERK AUDITING/Nusrat ZAMORA Role Performed Scrub - Primary Scrub - Other Time In 02/11/18 11:04:00 02/11/18 11:04:00 Time Out 02/11/18 11:24:00 02/11/18 11:24:00 Procedure CATARACT EXTRACTIONW/ CATARACT EXTRACTION W/ INTRAOCULAR LENS(Left) INTRAOCULAR LENS(Left) Comments Last Modified By: Anderson dubon RN, Rosanna Messina RN, Rosanna Morton 02/11/18 11:24:31 02/11/18 11:24:31 Perioperative Protocols FTPre-Care Text: Implements protective measures prior to operative [...] Rosanna Messina RN, Tiffanie RN, Krys Mar CONTROL CLERK AUDITING/SA, Mayo Silverio CONTROL CLERK AUDITING, Marisela Rodriguez Time Out Complete 02/11/18 11:08:00 Outcomes Met? Yes Last Modified By: Rosanna Messina RN 02/11/18 11:10:57 Post-Care Text: The patient is free from signs and symptoms of injury caused by extraneous objects General Comments: INTRA OP ABX GIVEN, SEE EMAR. HYUN RN Allergy Information FT Pre-Care Text: Verifies allergies Entry 1 Allergies Reviewed? Yes Allergies Reviewed S elf/Patient With Outcomes Met? Yes Last Modified By: Rosanna Messina RN 02/11/18 09:32:00 Post-CareText: The patient received appropriate medication(s) safely administered [...] SKIN INTACT. MARISOL PURVIS Patient Positioning FT Pre- Care Text: Identifies physical alterations that require additional precautions for procedure-specific positioning, verifies presence of prosthetics or corrective devices, positions the patient, evaluates the patient for signs and symptoms of injury as a result of positioning Entry 1 Procedure CATARACT EXTRACTION W/ Additional folded towel under head INTRAOCULAR LENS(Left) Inf ormation Body Position Supine Feet Uncrossed? Yes Left Arm Position Resting at Side Right Arm Position Resting at Side Left Leg Position Extended Right Leg Position Extended Positioning Device SafetyStrap, Other/See Press Points Checked Yes Comments By [...] objects Transport To OR FT Pre-Care Text: Trans ports according to individual needs. Evaluates for signs [...] 11:12:51 Post-Care Text: The patient is free fro m signs and symptoms of injury caused by extraneous objects Skin Prep FT Pre- Care Text: Performs skin preparations Entry 1 Procedure [...] REPORT CALLED TO [facility]. PT LEFT THE ORALERT AND ORIENTED. TRANSPORTED BACK TO [facility] BY [facility]. HYUN RN Dressing/Packing FT Pre-Care Text:Administers care to wound sites Entry 1 Type [...] Identification Description ROSENDA [id number] 12.50MM Lot Number [id number] 17.50 [[id number]][F] Beader Tender FT-[employer] Catalog ?# [id number] [F] Size 17.5 Expiration Date 09/21/18 Usage Data Implant Site LEFT EYE Quantity 1 Outcomes Met? Yes Last Modified By: Rosanna Messina RN 02/11/18 11:19:54 Post-Care Text: The patient is free from signs and symptoms of injury caused by extraneous objects CaseComments Finalized By: Elayne Agosto CST Document Signatures Signed By: Rosanna Messina RN 02/11/18 11:24 Elayne Agosto CST 02/11/18 13:09NoMary Rutan HospitalMain OR PACU II Recordon [id number] OR PACU II RecordPACU Phase II Document Type FT Summary Primary Physician: Hardeep Fraga DO Finalized Date/Time: 02/11/18 12:09:46 Pt. Name: PANKAJ PAYNE/Sex: 1945 Male Med Rec #: [id number] Physician: Hardeep Fraga DO Financial #: [id number] Pt. Type: A Room/Bed: [place] [address] Admit/Disch: 02/11/18 08:31:00 - Institution: Case Times [...] and immunizing agents as ordered, Evaluates postoperative tis kev perfusion Implements thermoregulation measures, and monitors body [...] The patient's value system, lifestyle, ethnicity, and cultureare considered, respected, and incorporated into the perioperative [...] Signatures Signed By: Lisa Rubi RN 02/11/18 12:09NoMary Rutan HospitalPatient Education - Texton 02-11-2018 Patient Education - [facility] HospitalProgress Note-Physician on 82-92-5351Ujxeoky mass concPatient: PANKAJ PAYNE Age: 72 years Sex: Male : 1945 Associated Diagnoses: None Author: Hardeep Fraga DO Postoperative Information Date/ Time: 02/11/18 11 :23:00 Preoperative Diagnosis: Senile Cataract - OS. Postoperative Diagnosis: same . Procedure: Cataract Extraction with IOL placement - OS. Anesthesia Method: Local. Performed by: Hardeep Fraga DO. Specimens Removed: none . Estimated Blood Loss: 0 ml. Complications: None.[facility] Barnesville HospitalComment on above:Result Comment: Electronically Signed By: Hardeep Fraga DO\.br\Date and Time Signed: 02/11/18 11:23 EST Vital Signs Date TimeVital SignValuePerforming YggyndhjtXmunbwgy63-77-3626 10:59-0500Body zyrufz909.1 cmCrescencio Marin DO Work Phone: [phone] [place], [place] 0707211-05-2025 10:59-0500 Body mass index (BMI) [Ratio]31.95 kg/o2IwrntvpCrescencio Liaodon DO Work Phone: 1([phone] [place], [place] 0707211-05-2025 10:59-0500 Body ibktmn21.09 kgWisissy Marin DO Work Phone: 1(646)[address]11-05-2025 10:59-0500 Diastolic blood evxhmjxh06 mm[Hg]Crescencio Marin DO Work Phone: 1(906)[address]11-05-2025 10:59-0500 Heart rate66 /minCrescencio Marin DO Work Phone: 1(139)[address] [place], [place] 0[address]7211-05-2025 10:59-0500 Systolic blood mm[Hg]Crescencio Marin DO Work Phone: 1(909)[address]10-23-2025 13:26-0400 Body gfulqq852.1 cmBuck Barlow RETAIL LEASING AGENT-SENIOR JAVA WEB DEVELOPER Work Phone: 1(378)[address]10-23-2025 13:26-0400 Body mass index (BMI) [Ratio]30.12 kg/q0SfcrdBuck Barlow RETAIL LEASING AGENT-SENIOR JAVA WEB DEVELOPER Work Phone: 1(658)[address] [place], [place] 0707210-23-2025 13:26-0400 Body ufryzp90.1 kgBuck Barlow RETAIL LEASING AGENT-SENIOR JAVA WEB DEVELOPER Work Phone: 1(103)[address]10-23-2025 13:26-0400 Diastolic blood idaepfhv97 mm[Hg]Buck Barlow RETAIL LEASING AGENT-SENIOR JAVA WEB DEVELOPER Work Phone: 1(112)414[address]10-23-2025 13:26-0400 Heart rate47 /Derek Barlow RETAIL LEASING AGENT-SENIOR JAVA WEB DEVELOPER Work Phone: 1(599)[address]10-23-2025 13:26-0400 Systolic blood hvxuqrmj304 mm[Hg]Buck Barlow RETAIL LEASING AGENT-SENIOR JAVA WEB DEVELOPER Work Phone: [facility]10-16-2025 11:38-0400 Body wavlgs381.4 cmSalima Adrian PR[employer]ER POWDER BL[employer]ER W[employer] Work Phone: [facility] CenterLnomkxhikx62-34-1252 11:38-0400Body mass index (BMI) [Ratio]29.4 kg/m2Zohaibking Adrian [employer] P[employer]DER [employer] Work Phone: [facility] CenterCllnwemzwd15-87-0587 11:38-0400Body .38 kgSalima Gar [employer]DER [employer] Work Phone: [facility] CenterUcgvvjwjvx76-88-7757 11:38-0400Diastolic blood ovrvxvgg57 mm[Hg]Salima Gar [employer] Work Phone: [facility] CenterLxgxjnlfio29-14-1663 11:38-0400Heart rate49 /min Salima Gar [employer] Work Phone: [facility] CenterRxtfffpcun58-55-9893 11:38-0400Respiratory rate16 /minSalima Gar PR[employer]ER P[employer]DER [employer] Work Phone: [facility] CenterZsizlfwcxq60-26-7046 11:38-3665FuO3% (BldA) [Mass fraction]100 %Salima Gar [employer] Work Phone: [facility] CenterItnfzapjnp70-32-8979 11:38-0400Systolic blood ocdgqwwq377 mm[Hg]Salima Gar [employer] Work Phone: [facility] CenterGdyhrfwmyw32-82-6185 13:33-0400Body jrylkc108.48 cmDashanae Conley II Work Phone: [facility]08-20-2025 13:33-0400 Body mass index (BMI) [Ratio]32.3 kg/b8Gkkjmy Conley II Work Phone: [facility]08-20-2025 13:33-0400 Body wyiloc09.28 kgDashanae Conley II Work Phone: [facility]08-20-2025 13:33-0400 Diastolic blood utztyitp65 mm[Hg]Frantz Conley II Work Phone: 1(142)984-[address] [place], [place] 5313208-20-2025 13:33-0400 Heart rate61 /minDzita Conley II Work Phone: 1(588)648-[address] [place], [place] 5313208-20-2025 13:33-0400 Systolic blood yfjoabap175 mm[Hg]Frantz Conley II Work Phone: 1(213)310-[address] [place], [place] 4050807-29-2025 14:31-0400 Body .4 cmKaren Hemmer PA Work Phone: 1(598)951-[address] [place], [place] [address]Wfqzyduhzp93-64-6003 14:31-0400Body mass index (BMI) [Ratio]29.24 kg/f8Dteil Hemmer PA Work Phone: [facility] CenterNibxhumbmm29-64-8930 14:31-0400Body iajngj85.92 kgKaren Hemmer PA Work Phone: [facility] CenterCdyiskyefd40-68-6047 14:31-0400Diastolic blood jmqpuarh94 mm[Hg]Rosanna Hemmer PA Work Phone: 1(074)[facility]-[address] [place], [place] [address]Exbqdejbor56-69-6329 14:31-0400Heart rate69 /min Rosanna Hemmer PA Work Phone: [facility] CenterNydrgjezsw05-70-2342 14:31-0400Respiratory rate16 /minKaren Hemmer PA Work Phone: [facility] CenterXvwjchcvih69-80-9326 14:31-5782VpO0% (BldA) [Mass fraction]96 %Rosanna Hemmer PA Work Phone: 1(974)[facility]-8576[facility] CenterJnqsvwskaj35-22-2364 14:31-0400Systolic blood vyebtgzr347 mm[Hg]Rosanna Hemmer PA Work Phone: 1(067)[facility]-2162[facility] CenterVhbuddtbml23-28-7362 11:04-0400Body bbxbaz996.4 cmFrantz Conley MD Work Phone: [facility] CenterRzuumqtziv52-72-8645 11:04-0400Body mass index (BMI) [Ratio]29.66 kg/u0TccuihFrantz Conley MD Work Phone: 1(212)047-[address] [place], [place] [address]Zvinbzgezq00-60-0269 11:04-0400Body .1 kg Frantz Conley MD Work Phone: [facility] CenterNoprhfhjxy25-50-9926 11:04-0400Diastolic blood mxvbmlag10 mm[Hg]Frantz Conley MD Work Phone: [facility] CenterTixpoqflhj17-78-7429 11:04-0400Heart rate48 /min Frantz Conley MD Work Phone: [facility] CenterXnpiwwbocv17-87-4796 11:04-7353DuL2% (BldA) [Mass fraction]97 %Frantz Conley MD Work Phone: [facility] CenterOqcrfmrjyu78-55-9465 11:04-0400Systolic blood mm[Hg]Frantz Conley MD Work Phone: [facility] CenterIknmzwhwns96-73-3718 14:56-0400Body .1 cmWiclaytonking LiaoTomas DO Work Phone: [facility]06-17-2025 14:56-0400 Body mass index (BMI) [Ratio]30.29 kg/p2Lxpbfte Tomas DO Work Phone: 1(801)673-[address] [place], [place] 0707206-17-2025 14:56-0400 Body azqzlj32.56 kgWilllazaro Tomas DO Work Phone: 1(327)456-[address] [place], [place] 0707206-17-2025 14:56-0400 Diastolic blood yvynoirp86 mm[Hg]Crescencio Marin DO Work Phone: 1(810)434-[address] [place], [place] 0707206-17-2025 14:56-0400 Heart rate58 /minWibradlylazaro Tomas DO Work Phone: [address] [place], [place] 9284006-17-2025 14:56-0400 Systolic blood mm[Hg]Crescencio Marin DO Work Phone: [address] [place], [place] 9284002-06-2025 13:05-0500 Body hutgyz559.48 cmFrantz Conley II Work Phone: [facility]02-06-2025 13:05-0500 Body mass index (BMI) [Ratio]32 kg/d4SswhsyFrantz Conley II Work Phone: 1(109)237-[address] [place], [place] 4050802-06-2025 13:05-0500 Body chcgue29.37 kgDashanae Conley II Work Phone: 1(420)[address]12-19-2024 10:59-0500 Body ibyspk073.4 cmFrantz Conley MD Work Phone: 1(740)[address]12-19-2024 10:59-0500Body mass index (BMI) [Ratio]29.17 kg/p4UiegpqFrantz Conley MD Work Phone: 1(602)[address]12-19-2024 10:59-0500Body nritsm99.74 kgFrantz Conley MD Work Phone: 1(965)650-[address] [place], [place] [address]Rbhugttfvp29-57-1242 10:59-0500Diastolic blood nguvjddg12 mm[Hg]Frantz Conley MD Work Phone: 1(529)972-[address] [place], [place] [address]Igjshjkykw48-15-3983 10:59-0500Heart rate56 /min Frantz Conley MD Work Phone: 1(661)320-[address] [place], [place] [address]Ktvtkwnnqz13-70-8235 10:59-7244FbM6% (BldA) [Mass fraction]98 %Frantz Conley MD Work Phone: 1(748)274-[address] [place], [place] [address]Jnbkuhnrxa08-96-4083 10:59-0500Systolic blood jyhtdasb369 mm[Hg]Frantz Conley MD Work Phone: 1(751)204-[address] [place], [place] [address]Uhrnbgggmr11-50-0134 11:24-0400Heart rate52 /min Crescencio Marin DO Work Phone: [facility]10-09-2024 11:16-0400 Body qoztlg096.1 cmCrescencio Marin DO Work Phone: [facility]10-09-2024 11:16-0400 Body mass index (BMI) [Ratio]29.09 kg/w9PrdkmqmCrescencio Marin DO Work Phone: [facility]10-09-2024 11:16-0400 Body fdwycq95.29 kgWibradlyiam Tomas DO Work Phone: [facility]10-09-2024 11:16-0400 Diastolic blood mm[Hg]Crescencio Marin DO Work Phone: [facility]10-09-2024 11:16-0400 Systolic blood arpdpoib050 mm[Hg]Crescencio Marin DO Work Phone: [facility]07-31-2024 11:17-0400 Diastolic blood qcgolgti65 mm[Hg]II Frantz Conley Work Phone: 1(579)[address]07-31-2024 11:17-0400 Heart rate70 /minII Frantz Conley Work Phone: 1(261)[address] [place], [place] 4250307-31-2024 11:17-0400 Respiratory rate18 /minII Frantz Conley Work Phone: 1(330)19240 [address]07-31-2024 11:17-0400 SaO2% (BldA) [Mass fraction]98 %II Frantz Conley Work Phone: 1(617)[address]07-31-2024 11:17-0400 Systolic blood lmoskwqo138 mm[Hg]II Frantz Conley Work Phone: 1(438)[address]07-31-2024 09:10-0400 Body szzern720.48 cmII Frantz Conley Work Phone: 1(199)50640 [address]07-31-2024 09:10-0400 Body ohgjha82.01 kgII Frantz Conley Work Phone: 1(942)64240 [address]06-25-2024 11:02-0400 Body hjetjf652.1 cmII Frantz Conley Work Phone: 1(148)96140 [address]06-25-2024 11:02-0400 Body mass index (BMI) [Ratio]28.8 kg/m2II Frantz Conley Work Phone: 1(062)[address]06-25-2024 11:02-0400 Body yxsqvt76.47 kgII Frantz Conley Work Phone: [facility]06-25-2024 11:02-0400 Diastolic blood guzyiofl13 mm[Hg]II Frantz Conley Work Phone: [facility]06-25-2024 11:02-0400 Heart rate53 /minII Frantz Jarvis Work Phone: [facility]06-25-2024 11:02-0400 Systolic blood theketpi659 mm[Hg]II Frantz Conlye Work Phone: [facility]03-28-2024 10:01-0400 Diastolic blood pssdkozk24 mm[Hg]Crescencio Tomas DO Work Phone: 1(512)563-[address] [place], [place] 0707203-28-2024 10:01-0400 Heart rate63 /minWibradlylazaro Liaodon DO Work Phone: 1(204)[address]03-28-2024 10:01-0400 Systolic blood vsmoyeua757 mm[Hg]Crescencio Marin DO Work Phone: 1(386)181-[address] [place], [place] 0707203-28-2024 10:00-0400 Body ythxbg037.1 cmWisissy Liaodon DO Work Phone: 1(184)886-[address] [place], [place] 0707203-28-2024 10:00-0400 Body mass index (BMI) [Ratio]30.29 kg/h9Xbqnyxk Tomas DO Work Phone: 6(313)888-[address] [place], [place] 0707203-28-2024 10:00-0400 Body .56 kgWisissy Tomas DO Work Phone: 1(148)284-[address] [place], [place] 0707202-14-2024 10:30-0500 Body lpphku455.4 cmFrantz Conley MD Work Phone: [facility] CenterMmkzhseowb63-19-4969 10:30-0500Body mass index (BMI) [Ratio]29.66 kg/e5CzesekFrantz Conley MD Work Phone: [facility] CenterYxqhylnfas10-30-2462 10:30-0500Body fjogqx36.1 kg Frantz Conley MD Work Phone: [facility] CenterMrnbvouvuy33-05-5615 10:30-0500Diastolic blood hswkilkd14 mm[Hg]Frantz Conley MD Work Phone: [facility] CenterRoonmxfxxh91-66-0764 10:30-0500Heart rate52 /min Frantz Colney MD Work Phone: [facility] CenterDhchpjjggm60-71-3239 10:30-9540KnD3% (BldA) [Mass fraction]99 %Frantz Conley MD Work Phone: [facility] CenterGtmimrdmiy88-82-7074 10:30-0500Systolic blood qzdlvfyg982 mm[Hg]Frantz Conley MD Work Phone: [facility] CenterGggrloslxf37-19-8695 10:27-0400Body temperature 97.8 [degF]II Frantz Conley Work Phone: 1(844)[address]07-07-2023 10:27-0400 Body hymfec96.19 kgII Frantz Conley Work Phone: 1(018)463-[address] [place], [place] 4050807-07-2023 10:27-0400 Diastolic blood sixxzzlm00 mm[Hg]II Frantz Conley Work Phone: 1(572)[address]07-07-2023 10:27-0400 Heart rate39 /minII Frantz Conley Work Phone: 1(104)895-[address] [place], [place] 4050807-07-2023 10:27-0400 Respiratory rate16 /minII Frantz Conley Work Phone: 1(081)955-[address] [place], [place] 4050807-07-2023 10:27-0400 SaO2% (BldA) [Mass fraction]97 %II Frantz Conley Work Phone: 1(806)965-[address] [place], [place] 4050807-07-2023 10:27-0400 Systolic blood nkcamdyz323 mm[Hg]II Frantz Conley Work Phone: [facility]06-27-2023 10:00-0400 Body hxemqw163.1 [facility] CityAtl[employer] Other [facility] [employer] Other 06-27-2023 10:00-0400Body mass index (BMI) [Ratio] 29.12 kg/t9WxyhnewMick Branch Other [facility] [employer] Other 06-27-2023 10:00-0400Body fdocoz01.38 kgCamkayla Branch Other [facility] [employer] Other 06-27-2023 10:00-0400Diastolic blood osakooyb86 mm[Hg] Mick Branch Other [facility] [employer] Other 06-27-2023 10:00-0400Systolic blood yzffoawz334 mm[Hg] Mick Branch Other [place] [employer] Other 05-17-2023 13:49-0400Body tlhurk052.1 cmII Frantz Conley Work Phone: [facility]06-28-2022 13:10-0400 Diastolic blood faubifjz40 mm[Hg]II Frantz Conley Work Phone: [facility]06-28-2022 13:10-0400 Heart rate68 /NancyI Frantz Conley Work Phone: [facility]06-28-2022 13:10-0400 Respiratory rate16 /minII Frantz Conley Work Phone: [facility]06-28-2022 13:10-0400 SaO2% (BldA) [Mass fraction]96 %II Frantz Conley Work Phone: [facility]06-28-2022 13:10-0400 Systolic blood dvdxpzoy379 mm[Hg]II Frantz Conley Work Phone: [facility]06-28-2022 11:54-0400 Body oqlchb310.1 cmII Frantz Conley Work Phone: [facility]06-28-2022 11:54-0400 Body mass index (BMI) [Ratio]29.9 kg/m2II Frantz Conley Work Phone: [facility]06-28-2022 11:54-0400 Body oleoppyymyi83.3 [degF]II Frantz Conley Work Phone: [facility]06-28-2022 11:54-0400 Body acpvmu25.64 kgII Frantz Conley Work Phone: [facility]06-22-2022 15:15-0400 Body lngoha142.1 [employer] Other [employer] Other 06-22-2022 15:15-0400Body mass index (BMI) [Ratio] 29.95 kg/d0BoqnvsbKangou Other [employer] Other 06-22-2022 15:15-0400Body tuetca93.65 kgCamKangou Other [employer] Other 05-26-2022 12:00-0400Body facdlikioaa58.01 [degF]Leonard Johnson [facility] MGRYOF02-32-2501 11:15-0400Heart rate69 /minLeonard Johnson [facility] BESLXI94-56-6690 11:15-0400Respiratory rate19 /min Leonard [facility]-26-2022 11:15-7406DhY6% (BldA) [Mass fraction]98 %Leonard Johnson [facility]05-26-2022 10:00-0400 Diastolic blood adhzodqa65 mm[Hg]Leonard Johnson [facility] 08-17-2021 10:00-0400Systolic blood yenonjyt887 mm[Hg]Leonard Johnson [facility]05-25-2022 21:48-0400Body ydipqq156.1 Reema Johnson [facility]05-25-2022 21:48-0400Body mass index (BMI) [Ratio]30.05 kg/r3KkfwkLeonard Johnson [facility]05-25-2022 21:48-0400Body weight 81.92 kgAaron Alex [facility]04-19-2022 11:45-0400Body height 165.1 Sravanthigeno Branch Other [employer] Other 04-19-2022 11:45-0400Body mass index (BMI) [Ratio] 30.45 kg/j1XrjgfjbMick Branch Other [employer] Other 04-19-2022 11:45-0400Body barcie84.01 kgCamkayla Branch Other [employer] Other 04-19-2022 11:45-0400Diastolic blood mm[Hg] Mick Thaisadam Other [employer] Other 04-19-2022 11:45-0400Systolic blood skvxdilp353 mm[Hg] Mick Thaisadam Other [employer] Other Encounters Encounter DateEncounter TypeCare ProviderFacilityStart: 01-27-2025 End: 23-62-2102Qoruia outpatient visit 40 minutesCrescencio Marin DO Work Phone: uh [facility] CenterComment on above:Localized edema; Sinus node dysfunction (Multi); PVC (premature ventricular contraction); History of coronary artery stent placement; ASHD (arteriosclerotic heart disease); Ascending aorta dilation; Former cigarette smoker; BMI 31.0-31.9,adult; CHF (congestive heart failure), NYHA class I, unspecified failure chronicity, diastolic (Multi)Start: 01-27-2025 End: 09-43-9105pkqqompasuKJQESTN [facility] AmbulatoryStart: 01-15-2025 End: 78-95-5257wqcjpwqtaeYZN STAFFFacility:[facility] Start: 01-14-2025 End: 82-62-8738Pixqlk outpatient visit 25 minutesBuck Quintanilla [place] RETAIL LEASING AGENT-SENIOR JAVA WEB DEVELOPER Work Phone: uh [facility] Medical CenterComment on above:Sinus node dysfunction (Multi) (Primary Dx); ASHD (arteriosclerotic heart disease); BMI 30.0-30.9,adultStart: 01-14-2025 End: 82-99-7735seacdbjszdHBUZHPhoebe [facility] AmbulatoryStart: 01-07-2025 End: 64-44-0169Pmidqcvidal Gar [employer] Work Phone: [facility] MedinceStart: 01-07-2025 End: 61-98-8616Fyukcpsanjay Gar [employer] Work Phone: [facility] MedinceStart: 01-07-2025 End: 10-68-8018Ckveqr outpatient visit 15 Melany Gar [employer] POW[employer] BL[employer] W[employer] Work Phone: [facility] MedinceComment on above:Hospital discharge follow-up (Primary Dx); Cough, unspecified type; Constipation, unspecified constipation typeStart: 01-07-2025 End: 49-98-2811omvgreldhmFTU C MILLERNot AvailableStart: 12-25-2024 End: 14-94-9703Budevyclk Result EncounterGeneric External Data ProviderNOMS External Department UnsolicitedStart: 12-25-2024 End: 90-81-9318Sjqjwiuig Result EncounterGeneric External Data ProviderNOMS External Department UnsolicitedStart: 12-25-2024 End: 02-53-2563yspqryrbgyQowuje Berry II Work Phone: [facility] Work Phone: Start: 12-25-2024 End: 63-36-7171Bovkvaro Radha Hernandez MD-LAB [facility] Start: 12-07-2024 End: 02-15-3473Iqzprbrmp Result EncounterGeneric External Data ProviderNOMS External Department UnsolicitedStart: 12-07-2024 End: 22-29-0969Rniquxfsg Result EncounterGeneric External Data ProviderNOMS External Department UnsolicitedStart: 11-11-2024 End: 56-71-1698dsryolodsgShgbox Berry II Work Phone: [facility] Work Phone: Start: 11-11-2024 End: 01-19-6720Wodzoyl encounter procedureMick Branch MD-[facility] Work Phone: Start: 11-02-2024 End: 71-06-2569Jtdbnfi encounter procedureMick Branch MD-Lab [facility] Work Phone: Start: 11-02-2024 End: 01-48-6531gcyexfsdawFogbns Berry II Work Phone: [facility] Work Phone: Start: 10-20-2024 End: 56-23-4841Bocioof encounter procedureRosanna MIRZA Work Phone: [facility] CenternceComment on above:Medicare annual wellness visit, subsequent (Primary Dx); ACP (advance care planning); Chronic insomnia; Other chronic pain; Benign essential HTN ; Benign hypertensive heart and CKD, 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), w CHF (HCC); Coronary artery disease involving kipnuk coronary artery of [place] heart without angina pectoris ; Dilatation of aorta; History of coronary artery stent placement; PVCs (premature ventricular contractions); Sinus arrhythmia; Sinus bradycardia; Abnormal LFTs; Diverticulosis of colon; Gastroesophageal reflux disease without esophagitis; 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); Cervical spondylolysis; Muscle cramps; Acquired hypothyroidism ; BMI 29.0-29.9,adult; Vitamin D deficiency; Iron deficiency anemia, unspecified iron deficiency anemia type; Pancytopenia, acquired ([facility]-HCC); Former cigarette smoker; Mixed hyperlipidemia ; Situational anxiety; Unsteadiness on feet; Esophageal varices without bleeding (HCC); Other secondary pulmonary hypertension (HCC); Grade II diastolic dysfunctionStart: 10-20-2024 End: 84-62-4823zjodthqjkeUYJFQIsiah Crockett AvailableStart: 10-20-2024 End: 34-18-7061Nvhqwj Jimmy MIRZA Work Phone: NO[facility] MedinceStart: 10-20-2024 End: 28-86-1697Xyalwq Jimmy MIRZA Work Phone: NOQN [facility] MedinceStart: 10-05-2024 End: 11-69-4763Exsctg outpatient visit 25 minutesFrantz Conley MD Work Phone: noms CI FMComment on above:Sinus bradycardia (Primary Dx); PVCs (premature ventricular contractions); Coronary artery disease involving kipnuk coronary artery of k[place] heart without angina pectoris ; 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) ([facility])Start: 10-05-2024 End: 87-99-2555bjyzrijawdVSRCSI B BERRYNot AvailableStart: 10-01-2024 End: 73-16-8997Raokgzavy Result EncounterGeneric External Data ProviderNOMS External Department UnsolicitedStart: 10-01-2024 End: 49-83-4761Nmvwwtlhz Result EncounterGeneric External Data ProviderNOMS External Department UnsolicitedStart: 09-23-2024 End: 01-41-7475Eamgrermh Result EncounterGeneric External Data ProviderNOMS External Department UnsolicitedStart: 09-23-2024 End: 31-26-7563Kokjnxiym Result EncounterGeneric External Data ProviderNOMS External Department UnsolicitedStart: 09-08-2024 End: 34-32-5052Kpggwu outpatient visit 15 minutesCrescencio Marin DO Work Phone: uh [place]landsComment on above:ASHD (arteriosclerotic heart disease); History of coronary artery stent placement; PVC (premature ventricular contraction); BMI 30.0-30.9,adult; Former cigarette smoker; Hyperlipidemia, unspecified hyperlipidemia typeStart: 09-08-2024 End: 74-80-0301elwehpfprvEFPJEBXMemorial [facility] AmbulatoryStart: 05-21-2024 End: 98-52-8702Yzqceyi encounter procedureDatalael Conley II Work Phone: [facility] [place] Work Phone: Start: 05-21-2024 End: 39-82-9587ibdhtjtgiuZjzchf Conley II Work Phone: [facility] Work Phone: Start: 04-30-2024 End: 40-56-3073mggzzgqgfdGwalyn Conley II Work Phone: [facility] Work Phone: Start: 04-30-2024 End: 71-04-1792Pysqedw encounter procedureDaniel Conley II Work Phone: [facility] [place] Work Phone: Start: 04-22-2024 End: 72-11-1032RrgegsVmfow Saturday PAPER CONSERVATOR Work Phone: noms CI FMComment on above:Mixed hyperlipidemia (CMS/HCC) (Primary Dx)Start: 04-21-2024 End: 80-51-9541Axefmokop Result EncounterGeneric External Data ProviderNOMS External Department UnsolicitedStart: 04-21-2024 End: 66-46-3305Pdsmapzoe Result EncounterGeneric External Data ProviderNOMS External Department UnsolicitedStart: 03-12-2024 End: 44-65-3730Hnbrtm Davie Conley MD Work Phone: NOMS CI FMStart: 03-12-2024 End: 31-97-2036Ghnwlj Davie Conley MD Work Phone: noMS CI FMStart: 03-12-2024 End: 27-52-6607Shnssp outpatient visit 25 minutesFrantz Conley MD Work Phone: noms FMComment on above:Benign essential HTN (CMS/HCC) (Primary Dx); Flu vaccine need; Coronary artery disease involving kipnuk coronary artery of kipnuk heart without angina pectoris (CMS/HCC); Mixed hyperlipidemia (CMS/HCC); Acquired hypothyroidism (CMS/HCC); Prostate cancer screeningStart: 03-12-2024 End: 54-99-5870ebtakbypwoUXCADR B BERRYNot AvailableStart: 01-01-2024 End: 52-19-5134Rvxagn outpatient visit 25 minutesChintanlazaro Marin Work Phone: [place]landsComment on above:ASHD (arteriosclerotic heart disease); PVC (premature ventricular contraction); History of coronary artery stent placement; Former cigarette smoker; BMI 29.0-29.9,adult; BradycardiaStart: 12-05-2023 End: 78-21-8956Ybthsmpjj Result EncounterGeneric External Data ProviderNOMS External Department UnsolicitedStart: 12-05-2023 End: 15-78-9213Cbvzicgjp Result EncounterGeneric External Data ProviderNOMS External Department UnsolicitedStart: 85-65-2344Vix-patient / Non-visitII Frantz Conley Work Phone: [facility] Gastro[facility]ology Work Phone: Start: 10-23-2023 End: 81-77-7568Tnvlzupko to same day surgery centerII Frantz Conley Work Phone: [facility] Work Phone: Start: 10-23-2023 End: [id number] Daniel Berry Work Phone: [facility] Work Phone: Start: 10-01-2023 End: [id number] Frantz Conley Work Phone: [facility] Work Phone: Start: 10-01-2023 End: [id number] encounter procedureII Frantz Conley Work Phone: [facility] [place] Work Phone: Start: 09-17-2023 End: [id number] Frantz Conley Work Phone: [facility] Work Phone: Start: 09-17-2023 End: [id number] encounter procedureII Frantz Conley Work Phone: [facility] [place] Work Phone: Start: 06-20-2023 End: 13-82-2802Jwtxzs outpatient visit 40 minutesCrescencio Marin DO Work Phone: uh FirelandsComment on above:ASHD (arteriosclerotic heart disease); History of coronary artery stent placement; Ascending aorta dilation (CMS/HCC); Iron deficiency anemia, unspecified iron deficiency anemia type; PVC (premature ventricular contraction); Former cigarette smokerStart: 06-05-2023 End: 18-55-7253ajsiyfobkrZF Daniel Berry Work Phone: [facility] Work Phone: Start: 06-05-2023 End: 31-81-6266Bhzuujb encounter procedureII Frantz Conley Work Phone: [facility] [place] Work Phone: Start: 72-33-4141Sjwrdz flowsRosio Conley MD Work Phone: [facility] CI FMStart: 90-12-3567Gmwbul Davie Conley MD Work Phone: [facility] CI FMStart: 05-08-2023 End: 94-07-9608Crhtzbcwgcxa care manage srvc 7 day dischargeDzita Conley MD Work Phone: [facility] CI FMComment on above:Pancytopenia, acquired (CMS/HCC) (Primary Dx); Iron deficiency anemia, unspecified iron deficiency anemia type; Other cirrhosis of liver (CMS/HCC); Fatty liver disease, nonalcoholic; Hyperchylomicronemia (CMS/HCC)Start: 05-01-2023 End: 04-46-8332owjfvdlwufUR Jose Manning Work Phone: [facility] Work Phone: Start: 05-01-2023 End: 35-11-2755Nhlejnvp ReferredMD Jose Manning Work Phone: [facility] Path [facility]Start: 10-04-2022 End: 04-34-6600ecrolvolfoYM Frantz Conley Work Phone: [facility] Work Phone: Start: 10-04-2022 End: 81-48-1598Mhfxzoc encounter procedureII Frantz Conley Work Phone: [facility] [place] Work Phone: Start: 09-28-2022 End: 69-72-8345ugayeretacYA Frantz Conley Work Phone: [facility] Work Phone: Start: 09-28-2022 End: 01-46-8025Rfvmesbqum RecurringII Frantz Conley Work Phone: [facility] Work Phone: Start: 09-18-2022 End: 62-38-7843ddukvrfdsqUbcppzl Sarina Other [employer] Other Start: 02-86-2805Sacwxev encounter procedureCameron DittyFPG GastroenterologyStart: 11-08-2021 End: 08-00-6899vlefjqjyozTO EHAB ELTAHAWYFacility:Y9Yhweu: 11-06-2021 End: 56-73-6558Bacaqeh encounter procedureII Frantz Conley Work Phone: [phone] [place] [address] Ctr-Respiratory Therapy Start: 10-10-2021 End: 82-75-4934Iqhbcwa encounter procedureII Frantz Conley Work Phone: [facility] Scan [facility] [place] Start: 09-20-2021 End: 43-21-3266Oukvvkd encounter procedureII Frantz Conley Work Phone: [facility] [place] Start: 09-19-2021 End: 61-32-5421Xojqxkujk to same day surgery centerII Frantz Conley Work Phone: [facility]Digestive HealthStart: 09-15-2021 End: 60-52-6253Vhxbtfk encounter procedureII Frantz Conley Work Phone: [facility]-Pre-Surgical Testing Start: 09-13-2021 End: 38-77-9528afvqedwqrpYhfcrbn Sarina Other [employer] Other Start: 06-14-7766Tdzifjn encounter procedureCamkayla BranchFPG GastroenterologyStart: 08-16-2021 End: 87-55-8693Sqcbimhlgg and management of inpatientZUBAIR AHACone Health Women's Hospitaly [facility] San Diegotart: 08-16-2021 End: 20-11-5688Izvlwcwkze and management of inpatientAaron M Orqvist MDSTVZ CAR 1Comment on above:Subarachnoid hemorrhage following injury, no loss of consciousness, initial encounter (HCC) (Primary Dx); Facial laceration, initial encounterStart: 08-16-2021 End: 11-41-4379xuubnxfgbjZFCKRSM D KATKOFacility:T7Qhtya: 07-12-2021 End: 14-04-0189kcshyeeerfPDUAWOY SARINAFacility:K9Abtpv: 07-11-2021 End: 00-26-9220qbnrlwqwzsOejvzlk Sarina Other [employer] Other Start: 50-64-5746OYTE visit new patientCamkayla Branch FPG GastroenterologyStart: 03-01-2021 End: 41-18-4914ygyyvjvelzHV FRANTZ CONLEYFacility:N7Taotm: 02-03-2021 End: 87-95-8041qbasabipbqCW DANIEL BERRYFacility:W9Leemv: 10-30-2018 End: 29-87-4965Situsjm encounter procedureRADELILAH WOOPTAFacility:UTMCStart: 02-28-2018 End: 81-88-9802Trghbku encounter procedureZOHAIGeoffrey LAMAMEDFacility:UTMCStart: 02-25-2018 End: 32-12-1327Nybipwt encounter procedureJonatyesi FragaFacility:FTMCStart: 02-11-2018 End: 18-83-5431Vbeffee encounter procedureJolinhyesi ShijudithFacility:[facility] Procedures DateProcedureProcedure DetailPerforming ClinicianStart: 04-99-8901KFAZY [facility]URE - [facility] [place]Generic External Data ProviderStart: 31-58-7794MKI CBC WITH AUTO DIFF Generic External Data ProviderStart: 18-36-8656XQF BASIC METABOLIC PANELGeneric External Data ProviderStart: 48-47-6573DEX LIPID PROFILE (FASTING)Generic External Data ProviderStart: 06-92-6746SEX ALTGeneric External Data Provider Start: 93-73-2294UUR ASTGeneric External Data ProviderStart: 61-33-2643XVN CBC WITH AUTO DIFFGeneric External Data ProviderStart: 76-55-9543Zjkihipznxenlbw of abdomenDashanae Conley II Work Phone: Start: 66-15-4347WWL CBC WITH AUTO DIFFGeneric External Data ProviderStart: 24-85-0641Qnv routine ecg w/least 12 lds w/i&r Crescencio Marin DO Work Phone: Start: 32-31-7162OTW CBC WITH AUTO DIFFGeneric External Data ProviderStart: 15-87-1646YtducyktjfaijyjauyhuzckpbtIA Frantz Conley Work Phone: Start: 50-00-3430Oleuzghxwhthakx of liverII Frantz Conley Work Phone: Start: 09-69-4733Nddrmsf of placement of stent for coronary artery diseaseHistory of coronary artery stent placementWisissy Marin DO Work Phone: Start: 76-63-9639Rzm routine ecg w/least 12 lds w/i&r Crescencio Marin DO Work Phone: Start: 34-96-8660NS scan of spleenII Frantz Conley Work Phone: Start: 07-18-0592Hplwd 1996 panel - Serum or Plasma Crescencio Marin DO Work Phone: Start: 11-45-0676Fisbxccoovkfopl of liverII Frantz Conley Work Phone: Start: 51-23-9503Mdfjnjo of placement of stent for coronary artery diseaseS/P coronary artery stent placementFrantz Conley MD Work Phone: Start: 49-69-0778Mvpsqvqy tomography of abdomen and pelvis with contrastII Frantz Conley Work Phone: Start: 82-89-1322Ohqqrqxlwzugykd of liverII Frantz Conely Work Phone: Start: 80-44-5481IalstqgpmobpobdjkatsrhhuxfWR Frantz Conley Work Phone: Start: 22-20-6411HZFKE METABOLIC PANEL W/ REFLEX TO MG FOR LOW KHayley E Prudencio DO Work Phone: Start: 27-65-1260Iwalx count complete auto&auto difrntl wbcHayley E Flannery DO Work Phone: Start: 36-33-8507Hxnkw s aureus methicillin resist amp probe tqLumeg Suarez MD Work Phone: Start: 66-55-0554Ls head/brain w/o contrast material Rishi Arteaga DO Work Phone: History of placement of stent for coronary artery diseaseHistory of coronary artery stent placementWisissy Marin DO Work Phone: History of placement of stent for coronary artery diseaseHistory of coronary artery stent placementWilliam S Tomas DO Work Phone: History of placement of stent for coronary artery diseaseHistory of coronary artery stent placementRosanna MIRZA Work Phone: History of placement of stent for coronary artery diseaseHistory of coronary artery stent placementWisissy Liaodon DO Work Phone: Plan of Treatment DateCare ActivityDetailAuthorStart: 51-21-8467Jdkut panelLipid PanelSelect Medical OhioHealth Rehabilitation Hospital - DublinStart: 07-29-2026Medicare Annual Wellness (AWV)Medicare Annual Wellness (AWV)NOM HealthcareStart: 09-14-2025 End: 83-83-4774Zyvatuk encounter gyptwnnfy54/23/2026 2:00 PM EDT Office Visit [place] [address] [facility] [address] [place] [address] Crescencio Marin DO [address] [facility] [address] [place] [address] [facility]: 05-[facility]2025 End: 53-16-3567Rypgpld encounter begngesuq81/17/2026 1:00 PM EST Office Visit [place] [address] [facility] [address] [place] [address] Buck Barlow, RETAIL LEASING AGENT-SENIOR JAVA WEB DEVELOPER [address] [facility] [address] [place] [address] [facility]Start: 04-12-2025 End: 75-26-7635Dpjzewr encounter vmucievce30/19/2026 11:00 AM EST Office Visit [facility] [place] Almaraz [address] [facility] [address] [place] [address] Frantz Conley MD [address] [facility] [address] [place] [address] [facility] [place] Deras MedinceStart: 02-04-2025 End: 94-25-3982Trdkcch encounter sirbzypyq34/13/2025 1:15 PM EST Appointment [facility] [address] [facility] [address] [place] [address] [facility] Bret NobleStart: 01-27-2025 End: 55-12-2098Atvtmbaegso peptide B [Mass/volume] in BloodB-Type Natriuretic Peptide Lab Routine Localized edema Sinus node dysfunction (Multi) ASHD (arteriosclerotic heart disease) Ascending aorta dilation CHF (congestive heart failure), NYHA class I, unspecified failure chronicity, diastolic (Multi) Expected: 01/27/2025, Expires: 01/27/2026[facility] Work Phone: Comment on above:Expected: 01/27/2025, Expires: 01/27/2026Start: 01-27-2025 End: 89-38-9118UJ Heart TransthoracicTransthoracic Echo Complete Echocardiography Routine Localized edema Sinus node dysfunction (Multi)ASHD (arteriosclerotic heart disease) Ascending aorta dilation Expected: 01/27/2025 (Approximate), Expires: 01/27/2027[facility] Work Phone: Comment on above:Expected: 01/27/2025 (Approximate), Expires: 01/27/2027Start: 01-07-2025 End: 62-19-4629Bcgarlp encounter yhsitqxfd71/16/2025 11:30 AM EDT Office Visit [facility] [place] Almaraz [address] [facility] [address] [place] [address] Salima Gar, PRIMER POWDER BLENDER WET [address] [facility] [address] [place] [address] ArrivedNOMS [place] OropezanceComment on above:ArrivedStart: 55-94-0465Rabhblul identified in Urine by CultureUrine [facility] Hospitaltart: 07-72-2972Tsgzf [facility] Hospitaltart: 12-07-2024 End: 27-11-3424Ybxutvf encounter procedureNOMS CI FMStart: 81-94-7440MRMSN-19 Vaccine ( season)COVID-19 Vaccine ( season)[facility]: 52-02-1603Rzwdfevwu vaccinationInfluenza Vaccine (#1)[facility] HealthcareStart: 74-11-9249Awuxhbqii vaccinationInfluenza Vaccine (#1) [facility]: 07-29-2025Medicare Annual Wellness (AWV) Medicare Annual Wellness (AWV)[facility] HealthcareStart: 10-20-2024 End: 46-97-6198Rpzuukz encounter procedureNOMS CI FMComment on above:Arrived Start: 10-05-2024 End: 15-90-3004Xozbfdp encounter /14/2025 11:00 AM EDT Office Visit [facility] CI FM [address] [facility] [address] [place] [address] Frantz Conley MD [address] [facility] [address] [place] [address] [facility] CI FMStart: 09-08-2024 End: 96-31-0041Caqbqoo encounter niltluoas95/17/2025 3:00 PM EDT Office Visit [place] [address] [facility] [address] [place] [address] Crescencio Marin DO [address] [facility] [address] [place], [place] [address] [facility]Start: 09-08-2024 End: 08-35-6128Zxckkko aminotransferase [Enzymatic activity/volume] in Serum or Plasma by With P-5'-PAlanine Aminotransferase Lab Routine ASHD (arteriosclerotic heart disease) Hyperlipidemia, unspecified hyperlipidemia type Expected: 09/08/2024 (Approximate), Expires: 09/08/2025[facility] Work Phone: Comment on above:Expected: 09/08/2024 (Approximate), Expires: 09/08/2025Start: 09-08-2024 End: 75-84-3065Blcupxvcs aminotransferase [Enzymatic activity/volume] in Serum or Plasma by With P-5'-PAspartate Aminotransferase Lab Routine ASHD (arteriosclerotic heart disease) Hyperlipidemia, unspecified hyperlipidemia type Expected: 09/08/2024 (Approximate), Expires: 09/08/2025[facility] Work Phone: Comment on above:Expected: 09/08/2024 (Approximate), Expires: 09/08/2025Start: 09-08-2024 End: 71-96-2635Wwqav metabolic 2000 panel - Serum or PlasmaBasic Metabolic Panel Lab Routine ASHD (arteriosclerotic heart disease) PVC (premature ventricular c ontraction) Expected: 09/08/2024 (Approximate), Expires: 09/08/2025Un[facility] Work Phone: Comment on above:Expected: 09/08/2024 (Approximate), Expires: 09/08/2025Start: 09-08-2024 End: 58-19-5666Yaies 1995 panel - Serum or PlasmaLipid Panel Lab Routine ASHD (arteriosclerotic heart disease) Hyperlipidemia, unspecified hyperlipidemia type Expected: 09/08/2024 (Approximate), Expires: 09/08/2025[facility] Work Phone: Comment on above:Expected: 09/08/2024 (Approximate), Expires: 09/08/2025Start: 91-93-1580Nqdtk-1-fetoprotein.tumor marker [Mass/volume] in Serum or PlasmaGalion Community Hospitaltart: 03-12-2024 End: 98-85-0343Jxmom 1995 panel - Serum or PlasmaLipid panel Lab Routine Mixed hyperlipidemia (CMS/HCC) Expected: 03/12/2024 (Approximate), Expires:03/12/2025 [facility] HealthcareComment on above:Expected: 03/12/2024 (Approximate), Expires: 03/12/2025Start: 03-12-2024 End: 55-16-3045HUV W/REFLEX TO FT4TSH W/REFLEX TO FT4 Lab Routine Acquired hypothyroidism (CMS/HCC) Expected: 03/12/2024 (Approximate), Expires: 03/12/2025 NOM[facility] HealthcareComment on above:Expected: 03/12/2024 (Approximate), Expires: 03/12/2025Start: 03-12-2024 End: 64-91-3163Khafjbb encounter procedureNOMS CI FMComment on above:Arrived Start: 12-25-2023 End: 64-56-8207Gyaoujw encounter xcnkvilbz67/02/2024 10:20 AM EDT Office Visit [facility] [address] [place] [address] Crescencio Marin DO [address] [place] [address] [facility]: 57-36-0697XMEGY-19 Vaccine ()COVID-19 Vaccine ()[facility]: 31-15-5606IGLBW-19 Vaccine ()COVID-19 Vaccine ()[facility]: 73-97-2127Rfnelpcou vaccinationInfluenza Vaccine (#1)[facility] HealthcareStart: 11-06-2023 End: 16-28-0721Kdvlxlx encounter rklxpoxpf97/14/2024 11:00 AM EDT Office Visit [facility] FM [address] [facility] [address] [place] [address] Frantz Conley MD [address] [facility] [address] [place] [address] [facility] CI FMStart: 93-97-8481LxmssdgofCommunity Regional Medical Center Start: 10-21-2023 End: 12-93-2912Radhbzi encounter /29/2024 11:00 AM EDT Office Visit [facility] [address] [place] [address] Frantz Conley MD [address] [facility] [address] [place] [address] [facility] CI FMStart: 36-83-9722Pfatt-1-fetoprotein.tumor marker [Mass/volume] in Serum or PlasmaGalion Community Hospitaltart: 05-31-2024Medicare Annual Wellness (AWV)Medicare Annual Wellness (AWV)[facility] HealthcareStart: 06-26-2023 End: 09-51-1599Bzqvvuqiuacy / ancillary services gnumrvowfj39/03/2024 10:00 AM EDT Ancillary Procedure [facility] [address] [facility] [address] [place] [address] [facility] CenterStart: 06-20-2023 End: 45-21-9706Nbdzaf monitor studyHolter Or Event Yardage Control Clerk Cardiac Services Routine PVC (premature ventricular contraction) Expected: 06/20/2023 (Approximate), Expires: 06/19/2024[facility] Work Phone: Comment on above:Expected: 06/20/2023 (Approximate), Expires: 06/19/2024Start: 06-10-2023 End: 20-24-1242Mzipugq encounter jlvaiopdn23/18/2024 10:30 AM EDT Office Visit [facility] [address] [facility] [address] [place] [address] Frantz Conley MD [address] [facility] [address] [place] [address] [facility] CI FMStart: 05-08-2023 End: 49-34-4923WLStephens [facility] Work Phone: Comment on above:Expected: 05/08/2023, Expires: 05/08/2024Start: 05-08-2023 End: 93-80-1782Lljfdpl encounter ocduxkpie67/14/2024 10:30 AM EST Office Visit [facility] [address] [facility] [address] [place] [address] Frantz Conley MD [address] [facility] [address] [place] [address] [facility] CenterNOPR CI FMComment on above:ArrivedStart: 11-23-2022 COVID-19 Vaccine ()COVID-19 Vaccine () [facility]: 43-34-3177RimhflidnnoevaudLhpgnvhlrhiugf [facility]: 49-68-3027Hvlqc panelLipidsBON [facility]: 75-88-7588JacwndtvuC[facility] Clinic [facility] Work Phone: Start: 08-24-2021 End: 41-55-4911IU HEAD WO CONTRASTCT HEAD WO CONTRAST Imaging Routine Subarachnoid hemorrhage following injury, no loss of consciousness, initial encounter (HCC) Expected: 08/24/2021, Expires: 08/17/2022ON [facility] Work Phone: comment on above:Expected: 08/24/2021, Expires: 08/17/2022Start: 19-39-2657BXD High Risk: (Elderly (60+) or Population) (1 - 1-dose 75+ series)RSV High Risk: (Elderly (60+) or Population) (1 - 1-dose 75+ series)[facility]: 09-30-2019 Pneumococcal 65+ years Vaccine (2 - PCV)Pneumococcal 65+ years Vaccine (2 - PCV) [facility]: 95-12-5889Mhfheffdoanp vaccinationPneumococcal Vaccine (2 of 2 - PCV)[facility]: 09-30-2019 Pneumococcal Vaccine: 65+ Years (2 - PCV)Pneumococcal Vaccine: 65+ Years (2 - PCV)[facility]: 86-51-3161Rdyexljjohtd Vaccine: 65+ Years (2 of 2 - PCV)Pneumococcal Vaccine: 65+ Years (2 of 2 - PCV)[facility]: 85-28-0402Kujxiogbk B Vaccines (1 of 3 - Risk 3-dose series) Hepatitis B Vaccines (1 of 3 - Risk 3-dose series)[facility]: 43-72-2823JJD patients and/or patients aged 60+ years (1 - 1-dose 60+ series)RSV patients and/or patients aged 60+ years (1 - 1-dose 60+ series)[facility]: 29-07-6393Bdglctvxo for malignant neoplasm of colonInova [facility] Hospital: 1968 DTaP/Tdap/Td Vaccines (1 - Tdap)DTaP/Tdap/Td Vaccines (1 - Tdap)[facility]: 91-80-6872YWeB/Tdap/Td vaccine (1 - Tdap) DTaP/Tdap/Td vaccine (1 - Tdap)[facility]: 1965 Hepatitis A Vaccines (1 of 2 - Risk 2-dose series)Hepatitis A Vaccines (1 of 2 - Risk 2-dose series)[facility]: 60-65-5726Zfynj screening for proteinCKD: Urine Protein ScreeningThe Christ Hospital: 91-41-7934Neubvtpd mellitus screeningDiabetes Screening [facility]: 03-82-6105Tvnxjgziv C screeningInova [facility] Hospital: 09-83-0443Ngjzlliieq ScreenDepression ScreenInova Alexandria Hospital: 85-17-2808Dpjjcvsogp measurementCreatinine Level [facility]: 05-08-1947Medicare Annual Wellness Visit Medicare Annual Wellness Visit (AWV)[facility]: 65-98-1205Jozdonxxx measurementPotMercy [facility] [place] Start: 98-66-9108Asztpzq stimulating hormone measurementTSCarl Albert Community Mental Health Center – McAlesterOxygen therapy [Minimum Data Set]Initiate Oxygen Therapy Protocol Respiratory Care Routine As Needed until discontinued starting 07/24 [facility] Work Phone: comment on above:As Needed until discontinued starting 08/16/2021atient EducationHemorrhoids Colon polyps Esophageal varices Diverticulosis Know your [facility] Work Phone: Prostate specific Ag [Mass/volume] in Serum or Plasma PSA Lab Routine Prostate cancer screening Ordered: 03/12/2024[facility] [employer] Work Phone: Comment on above:Ordered: 03/12/2024 End: 70-99-6651Noneyo and language therapy regimeSpeech language pathology evaluation NEEDLE GRINDER Routine One Time for 1 Occurrences starting 08/16/2021 until 08/16/2021ON [facility] Work Phone: comment on above:One Time for 1 Occurrences starting 08/16/2021 until 08/16/2021URINE CULTURE - [facility] Routine 12/25/2024 2:15 AM [facility] Immunizations Immunization DateImmunizationNotesCare McomimxfYgjoawze56-54-0888Eeitoxxvv, High-dose Seasonal, Quadrivalent, Preservative Izabela Conley MD Work Phone: [facility] CenterOcevlldpzv67-45-8510adstindtz virus vaccine, unspecified formulationGeneric ProviderMissouri Delta Medical CenterKqmkagkhch59-88-7811rltcebvwp, high dose seasonal, preservative-freeGeneric ProviderMissouri Delta Medical CenterZlycadfbqj41-74-5333 Influenza, Seasonal, Quadrivalent, AdjuvantCj Conley MD Work Phone: [facility] CenterQtsqsebuvs91-74-0212advoclzpm virus vaccine, unspecified formulationGeneric ProviderMissouri Delta Medical CenterOctluwczjd31-27-0684Bhuwrotvd, High- dose Seasonal, Quadrivalent, Preservative Izabela Conley MD Work Phone: [facility] Work Phone: [phone]-44 Ad26.COV2.S (Caleb)LIBBY Conley Work Phone: [phone] [place], [place] [address]10-15-2021influenza, high dose seasonal, preservative-Izabela Conley MD Work Phone: [facility] CenterFhkndbxhml45-67-4071Tmqmconpg, High-dose Seasonal, Quadrivalent, Preservative Izabela Conley MD Work Phone: [phone] Delta Medical CenterFzhumkzjhb00-78-4737GUZIJ-70 mRNA-1273 (Moderna) LIBBY Conley Work Phone: [phone] [place], [place] 40[address]802-04-2021COVID-19 mRNA-1273 (Moderna)LIBBY Conley Work Phone: [phone] [place], [place] [address]10-14-2020Influenza, High-dose Seasonal, Quadrivalent, Preservative Izabela Conley MD Work Phone: [facility] CenterKaxiplxmtz89-94-2096ejbxdl vaccine recombinant Frantz Conley MD Work Phone: [facility] CenterHpgnmmapbj31-74-6535glpxaw vaccine recombinant Frantz Conley MD Work Phone: [phone] Delta Medical CenterXuljssxcvn20-14-6822zcbwgngie, high dose seasonal, preservative-Izabela Conley MD Work Phone: [facility] CenterWfaqzanzuk72-81-5283gwwdqnjnxamc polysaccharide vaccine, 23 valentDashanae Conley MD Work Phone: [facility] CenterXntfeobbtk69-24-2996Xdvgfbhkr, High-dose Seasonal, Quadrivalent, Preservative Izabela Conley MD Work Phone: [facility] CenterEqksyqofin33-05-7910Cihsxymrs, High-dose Seasonal, Quadrivalent, Preservative Izabela Conley MD Work Phone: [facility] CenterHnrkkkevjl70-65-2236irosgvqwl, seasonal, injectable, preservative Izabela Conley MD Work Phone: [facility] CenterPoeehnfluh03-07-9178ewdtmrbz influenza, intradermal, preservative Izabela Conley MD Work Phone: [facility] Payers DatePayer CategoryPayerPolicy [id number] of Defense ( and others)[id number]-eio [id number] For Life (TFL) FOR LIFE 1.2.840.586871.1.13.647.2.7.9.207387.177558.56028-17-7470Bapslkiwhe of Defense ( and others)1.2.840.234384.1.13.693.2.7.3.332263.51321-79-4071IHGVAKJ () 1.2.840.040101.1.13.693.2.7.9.682724.452421.19343-64-6676Bbbvykuhki of Defense ( and others)[id number] 2012Medicare 1.2.840.659921.1.13.693.2.7.3.744732.46182-99-4945Yidtpibnpv of Defense ( and others)[id number] [id number] [id number] 2..1.463484.3.57[id number] 2..1.550786.3.57[id number] 2.0.1.101443.3.57[id number] 2.0.1.956057.3.57[id number] 2.0.1.952844.3.579.[id number] 2.840.1.994219.3.57[id number] 2.840.1.401744.3.57[id number] 2.840.1.030228.3.57[id number] 2.0.1.983899.3.57[id number] 2.0.1.957319.3.57[id number] 2.0.1.398944.3.57[id number] 2..1.580025.3.57[id number] 2..1.593311.3.57[id number] 2..1.738544.3.57[id number] 2.0.1.520677.3.57[id number] 2.0.1.097943.3.57[id number] 2.0.1.18[id number] 2.0.1.772550.3.579.2.531 [id number] 2.840.1.9[id number] 2.840.1.4[id number] 2.16.840.1.568158.3.579.2.531 [id number] 2.16.840.1.491603.3.579.2.531 Social History DateTypeDetailFacilityStart: 97-54-8655Bgqjchc smoking status NHISTobacco smoking consumption unknownTUBA CITY REGIONAL [facility] ShoogerStart: 08-16-2021 End: 30-66-6305Nfzbegw intakeLifetime non-drinker (finding)BON [facility] Phone: start: 35-18-5245Knhtnlf SDOH Alcohol Wymaaojpi6ENE [facility] Phone: start: 89-24-0548Uou Assigned At [facility]Not on [facility] Phone: start: 08-06-2021 End: [id number] to SARS-CoV-2 (event)Not sureTUBA CITY REG[facility] [employer] Phone: start: 04-15-2023 End: [id number] [facility]: [facility]2021 End: 17-00-3669Xxagved smoking status NHISNever smoked tobacco (finding) [facility]tart: [id number] [facility]igned At [facility]: 08-16-2022 End: 35-68-1857Jtimzqn use and exposureSmokeless tobacco non-userNOMS Healthcare Start: 04-22-2023 End: 94-96-3851Keaciky intakeEx-drinker (finding)[facility] HealthcareStart: 04-15-2023 End: 95-13-4967Omvtvsy of Social functionNOMS HealthcareWithin the last year, have you been afraid of your partner or ex-partner?NoNOMS HealthcareStart: 71-10-4717Wnx often do you get together with friends or relatives?Patient refusedNOMS HealthcareDo you belong to any clubs or organizations such as zoroastrianism groups, unions, fraternal or athletic groups, or school groups?YesNOMS HealthcareAre you now , , , , never or living with a partner?MarriedNOMS HealthcareHow often to you have a drink containing alcohol?NeverNOMS Healthcare(I/We) worried whether (my/our) food would run out before (I/we) got money to buy more.Never trueNOMS Healthcare Start: 22-37-0019Amnpnre Commentcaffeine intake: 1-2 cups per day.NOMS HealthcareStart: 06-20-2023 End: 93-14-2833Mjaufnn smoking status NHISEx-smokerUnUniversity Hospitals Lake [facility] Center Work Phone: End: 28-02-7422Tpdnrxh of tobacco useCurrent smokerUnUniversity Hospitals Lake [facility] Center Work Phone: End: 14-14-1360Nlqeiwe of tobacco useCigarette SmokerUnUniversity Hospitals Lake West Medical Center Work Phone: Start: 70-95-2116Pwrfia identityIdentifies as male gender (finding)[facility] Work Phone: Start: 58-17-8646Itmmnw orientationHeterosexual (finding)[facility] Work Phone: Start: 06-30-1644GxtYbhmjwa sex unknown (finding) [facility]tart: 06-10-2023 End: 40-03-1135JeeGtyp (finding)[facility] Hospitaltart: 80-83-9082Mojhlte use and exposureFormer smokeless tobacco userUnUniversity Hospitals Lake [facility] Medical Center Work Phone: End: 56-12-7556Jqkjqij of tobacco useUser of smokeless tobaccoUnUniversity Hospitals Lake [facility] Work Phone: Goals DatePatient GoalDesired Activity/State Functional Status HdbcOyxvmujmqzSzehwbFpnrmxix49-40-5822Hpljowatsx /64UnUniversity Hospitals Lake West Medical Center Work Phone: [phone] 557-48331265883-27-4705Aclya signs66 01/27/2025 10:59 AM Claudette Limon LPNUnUniversity Hospitals Lake [facility] Center Work Phone: [phone] Hospitals Lake West Medical Center Work Phone: [phone]cjs kvmdun611/64UnUniversity Hospitals Lake West [facility] Center Work Phone: [phone]) [phone] signs47 01/14/2025 1:26 PM EDT Lachelle Arvizu, [facility]AREUnUniversity Hospitals [facility] Work Phone: [phone] Hospitals Lake West Medical Center Work Phone: [phone] Health Questionnaire 2 item (PHQ-2) [Reported][facility] CenterUflkdjckap18-82-8533Qpsjpeb Health Questionnaire 2 item (PHQ-2) [Reported][facility] Clinical Notes 05-23-2021 to 01-27-2025 Note Date & MdeiKdyhAojxsjzc94-49-9527 History of Present illness Narrative* Crescencio Marin, DO - 01/27/2025 11:00 AM EST Chief Complaint Patient presents with Follow-up 2 week follow up for ASHD Subjective Pankaj Payne is a 79 y.o. [...] with PCI of the ostial/proximal circumflex at [facility] he says around 4+ years ago [...] his aspirin was recently started at the [place] [facility] when he was evaluated for syncope/near [...] tablet 1 tablet, Daily fish oil concentrate (Rheems-3) 120-180 mg capsule 1,000 mg, Daily levothyroxine [...] exam, discussion and plan. documented in this encounterSelect Medical [facility] Work Phone: [phone]) 146-596911-05-2025 Instructions* Patient Instructions* Shawna Arce RN - 01/27/2025 [...] daily for 2 weeks. documented in this encounterSelect Medical [facility] Work Phone: 1([phone]) 379-259410-23-2025 Evaluation + Plan note* Assessment & Plan Note - Buck Barlow APRN-ROMÁN - 01/14/2025 4:26 PM EDTAssociated Problem(s): BMI 30.0-30.9,adult Reviewed the merits of healthy lifestyle choices on overall cardiovascular health. [facility] Work Phone: [phone] 403-732810-23-2025 Evaluation + Plan note* Assessment & Plan Note - LIZETH Huber - 01/14/2025 4:26 PM EDTAssociated Problem(s): Sinus node dysfunction (Multi) Dec 2024 hospitalization at [facility] due to weakness/ ? Near syncope. Tele: SR with PAC, junctional, pause 1.4 seconds 30 day MARIANN: NO AVN blocking agents 3 recorded episodes during awake hours ranging 3.1 -3.4 seconds ECG in office today: progression bifascicular block. Sinus bradycardia at 47bpm with PAC and junctional. [facility] Work Phone: [phone] 127-346710-23-2025 Miscellaneous Notes* Assessment & Plan Note - LIZETH Huber - 01/14/2025 4:26 PM EDTAssociated Problem(s): BMI 30.0-30.9,adult Reviewed the merits of healthy lifestyle choices on overall cardiovascular health. * Assessment & Plan Note - LIZETH Huber - 01/14/2025 4:26 PM EDT Associated Problem(s): Sinus node dysfunction (Multi) Dec 2024 hospitalization at [facility] due to weakness/ ? Near syncope. [...] (arteriosclerotic heart disease) 2019 [facility] FINAL IMPRESSION: 1. Stable coronary artery disease. [...] activity > 4 METs without concerning symptoms documented in this encounterSelect Medical [facility] Work Phone: [phone] 513-704910-23-2025 Evaluation + Plan note* Assessment & Plan Note - LIZETH Huber - 01/14/2025 4:23 PM EDTAssociated Problem(s): Cardiac and Vasculature Oct 2021 TTE EF 65% [facility] Work Phone: [phone] Evaluation + Plan note* Assessment & Plan Note - LIZETH Huber - 01/14/2025 1:30 PM EDTAssociated Problem(s): ASHD (arteriosclerotic heart disease) 2019 Cardiac Cath at [facility] FINAL IMPRESSION: 1. Stable coronary artery disease. [...] activity > 4 METs without concerning symptoms [facility] Work Phone: [phone] History of Present illness Narrative* LIZETH Huber - 01/14/2025 1:30 PM EDT Chief Complaint I am doing fine Reason for Visit Patient presents to the office today for outpatient follow-up for hospital follow-up. Last evaluated in clinic by Dr. Marin August 2024. Presents today ambulatory with steady gait. November 2024: Hospitalized at [facility] due to weakness. He reports that [...] junctional rhythm. He was not placed on beta- yadira. He was then placed on a 30-day [...] patient was somewhat argumentative and eventually Dr. Tomas luis from the hospital to discuss with patient. After discussion, patient agrees to proceed with pacemaker implant. Dr. Marin has personally contacted [facility] and arrangements will be made for [...] Wt 82.1 kg (181 lb) BMI 30.12 kg/m Smoking Status Former BSA 1.94 m Physical Exam Vitals and nursing note reviewed. [...] tablet 1 tablet, Daily fish oil concentrate (Rheems-3) 120-180 mg capsule 1,000 mg, Daily levothyroxine (SYNTHROID, LEVOXYL) 88 mcg, Daily before breakfast multivitamin with minerals tablet 1 tablet, Daily omeprazole (PRILOSEC) 40 mg, Daily tiZANidine (ZANAFLEX) 4 mg, Nightly PRN Assessment: ASHD (arteriosclerotic heart disease) 2019 [facility]iac Cath at [facility] FINAL IMPRESSION: 1. Stable coronary artery disease. [...] node dysfunction (Multi) Dec 2024 hospitalization at [facility] due to weakness/ ? Near syncope. [...] for dual-chamber permanent pacemaker implant tomorrow at [facility]. Buck Barlow MSN, RETAIL LEASING AGENT-SENIOR JAVA WEB DEVELOPER, PMHNP-[facility] [employer] [place], [place] Please excuse any errors in grammar or translation related to this dictation. Voice recognition software was utilized to prepare this document. documented in this [facility] Work Phone: [phone]) [phone] Instructions* Patient Instructions* Maria Dolores Carbajal LPN - [...] be sent through Care Everywhere. * Pacemakers (Amharic) documented in this [facility] Work Phone: [phone] 650-191010-16-2025 History of Present illness Narrative* Salima Gar NP - 01/07/2025 11:30 AM EDT Images from the original note were not included. Subjective Patient ID: Pankaj Payne is a 79 y.o. male who presents for [facility] follow up. Flowsheet Row Patient Outreach from 12/28/2024 in [facility] with Dang Bosch LPN Hospital Information ED, Hospital or Prison Facility Discharge? Hospital Patient has been contacted within two business days of discharge Yes Diagnosis (1) Hypotension: (2) Coronary artery disease: (3) H/O heart artery stent: (4) Hyperlipidemia: (5) Steatohepatitis: (6) Portal hypertension: (7) Thrombocytopenia: (8) GAVE (gastric antral vascular ectasia): (9) Anemia: (10) Hypothyroid Discharge Date 12/26/24 Discharged To: Home Setting [facility]charge [facility] Engagement Call Start Time 1140 Admission [...] patient have any upcoming specialty appointments? Yes Dr. Marin (01/14/25) Self Management Does patient have home health? [...] heart monitor recomended. Call End Time 1148 Pt is still wearing the heart monitor, he is feeling better though. Current Outpatient Medications on File Prior to Visit Medication Sig Dispense Refill atorvastatin (Lipitor) 20 MG tablet Take 1 tablet (20 mg) by mouth at bedtime 100 tablet 3 clopidogrel (Plavix) 75 MG tablet Take 1 tablet (75 mg) by mouth Daily 90 tablet 3 Ferrous Gluconate (iron) 240 (27 Fe) MG tablet Take 1 tablet by mouth Daily levothyroxine (Synthroid) 88 MCG tablet TAKE 1 TABLET DAILY (DECREASED) 100 tablet 3 Multiple Vitamins-Minerals (ONE DAILY ADULTS 50+ PO) Take 1 tablet by mouth 1 (one) time each day. 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 HENT: Negative. Eyes: Negative. Respiratory: Negative. Cardiovascular: Negative. Gastrointestinal: Negative. Genitourinary: Negative. Musculoskeletal: Negative. Skin: Negative. Neurological: Negative. Psychiatric/Behavioral: Negative. Hematological: Negative. Endocrine: Negative. Allergic/Immunologic: Negative. Objective Physical Exam Vitals reviewed. Constitutional: Appearance: Normal appearance. HENT: Head: Normocephalic. Nose: Nose normal. Eyes: Conjunctiva/sclera: Conjunctivae normal. Cardiovascular: Rate and Rhythm: Normal rate and regular rhythm. Heart sounds: Normal heart sounds. Pulmonary: Effort: Pulmonary effort is normal. Breath sounds: Normal breath sounds. Abdominal: Palpations: Abdomen is soft. Musculoskeletal: General: Normal range of motion. Cervical back: Normal range of motion. Skin: General: Skin is warm and dry. Neurological: Mental Status: He is alert and oriented to person, place, and time. Psychiatric: Mood and Affect: Mood normal. Behavior: Behavior normal. Thought Content: Thought content normal. Judgment: Judgment normal. Assessment/Plan 1. Hospital discharge follow-up (Primary) The pt presents in follow up from an ER visit. He was seen following his 's at [facility] er for weakness, fatigue and cough. He was diagnosed with possible pertusis and given a z pack . He states he is feeling better from this but still has a slight cough. We discussed adding some benzonatateas needed. He agrees with this treatment plan today. 2. Cough, unspecified type - benzonatate (Tessalon) 200 MG capsule; Take 1 capsule (200 mg) by mouth 3 (three) times a day as needed for cough for up to 10 days Do not crush or chew. Dispense: 30 capsule; Refill: 0 3. Constipation, unspecified constipation type The pt reports increased constipation, we discussed the use of miralax and its most common side effects. He agrees that he will try this as needed.dddd - polyethylene glycol, PEG, 3350 (Miralax) 17 g packet; Take 17 g by mouth Daily as needed (constipation) Dispense: 30 packet; Refill: 0 No follow-ups on file. documented [facility] this [facility]10-16-2025 Instructions* Patient Instructions* Salima Gar NP - 01/07/2025 11:30 AM EDT Miralax prn added. Benzonatate added documented in this [facility]08-20-2025 Evaluation note* Diagnosis Onset Date Resolution Status Admit Date Cirrhosis, nonalcoholic acuteAugust 2024 1:26pmEsophageal varicesacuteAugust 2024 1:26pmGAVE (gastric antral vascular ectasia)acuteAugust 2024 1:26pmIron deficiency anemiaacuteAugust 2024 1:26pmMetabolic dysfunction-associated steatohepatitis (MASH)acuteAugust 2024 1:26pmMetabolic dysfunction- associated steatotic liver disease (MASLD)acuteAugust 2024 1:26pm Pancytopenia, acquiredchronicAugust 2024 1:26pm [facility] Work Phone: [phone] 155-729507-29-2025 History of Present illness Narrative* HERMES Campa [...] Do you have a medical power of attorney at law?: Yes Current Outpatient Medications on File Prior [...] by mouth 1 (one) time each day. Rheems-3 Fatty Acids (Fish Oil) 1000 MG capsule [...] essential HTN The patient is seeing a site medical director for this condition, treatment is deferred to that specialist. Correspondence from that specialist and any available testing were reviewed during today's visit. 6. 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 Correspondence from that specialist and any available testing were reviewed during today's visit. 7. Coronary artery disease involving [place] coronary artery of [place] heart without angina pectoris The patient is seeing a site medical director for this condition, treatment is deferred to that specialist. Correspondence from that specialist and any available testing were reviewed during today's visit. 8. Dilatation of aorta The patient is seeing a site medical director for this condition, treatment is deferred to that specialist. Correspondence from that specialist and any available testing were reviewed during today's visit. 9. History of coronary artery stent placement The patient is seeing a site medical director for this condition, treatment is deferred to that specialist. Correspondence from that specialist and any available testing were reviewed during today's visit. 10. PVCs (premature ventricular contractions) The patient is seeing a site medical director for this condition, treatment is deferred to that specialist. Correspondence from that specialist and any available testing were reviewed during today's visit. 11. Sinus arrhythmia The patient is seeing a site medical director for this condition, treatment is deferred to that specialist. Correspondence from that specialist and any available testing were reviewed during today's visit. 12. Sinus bradycardia The patient is seeing a site medical director for this condition, treatment is deferred to that specialist. Correspondence from that specialist and any available testing were reviewed during today's visit. 13. Abnormal LFTs The patient is seeing a site medical director for this condition, treatment is deferred to that specialist. Correspondence from that specialist and any available testing were reviewed during today's visit. 14. Diverticulosis of colon The patient is seeing a site medical director for this condition, treatment is deferred to that specialist. Correspondence from that specialist and any available testing were reviewed during today's visit. 15. Gastroesophageal reflux disease without esophagitis The patient is seeing a site medical director for this condition, treatment is deferred to that specialist. Correspondence from that specialist and any available testing were reviewed during today's visit. 16. 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 Correspondence from that specialist and any available testing were reviewed during today's visit. 23. Pancytopenia, acquired (CMS-HCC) The patient is seeing a site medical director for this condition, treatment is deferred to [...] bleeding (HCC) The patient is seeing a site medical director for this condition, treatment is deferred to that specialist. Correspondence from that specialist and any available testing were reviewed during today's visit. 29. Other secondary pulmonary hypertension (HCC) The patient is seeing a site medical director for this condition, treatment is deferred to that specialist. Correspondence from that specialist and any available testing were reviewed during today's visit. 30. Grade II diastolic dysfunction The patient is seeing a site medical director for this condition, treatment is deferred to that specialist. Correspondence from that specialist and any available testing were reviewed during today's visit. Follow up for Appointment As Scheduled. VALDEZ RouseC documented in this encounterMissouri Delta Medical CenterGperayqbey55-68-9173 History of Present illness Narrative* Frantz Conley [...] by mouth 1 (one) time each day. Rheems-3 Fatty Acids (Fish Oil) 1000 MG capsule [...] (premature ventricular contractions) Coronary artery disease involving [place] coronary artery of [place] heart without angina pectoris 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) - This was discussed at length, questions answered. - This office visit was spent in consultation regarding the patient's current medical problems, differential diagnoses, testing/imaging results, and treatment options. Greater than 25 minutes was spent in bsne-sq-wtcj consultation and coordination of care. Follow up in about 2 months (around 12/06/2024) for Recheck. documented in this encounterMissouri Delta Medical [id number] History of Present illness Narrative* Crescencio Marin DO - 09/08/2024 3:00 PM EDT Chief [...] with PCI of the ostial/proximal circumflex at [facility] he says around 4+ years ago [...] tablet 1 tablet, Daily fish oil concentrate (Rheems-3) 120-180 mg capsule 1,000 mg, Daily levothyroxine [...] exam, discussion and plan. documented in this encounterSelect [facility] Work Phone: [phone]) 618-581706-17-2025 Instructions* Patient Instructions* Kina Mcduffie RN - [...] instructions on dietary changes. documented in this encounterSelect Medical [facility] Work Phone: 1([phone]) 772-900502-27-2025 Radiology Diagnostic study noteJOINT [facility] Main [place] [address] [place] [address] Ultrasound Report Signed Patient: Pankaj Payne MR#: [id number] : 1945 Acct:[id number] Age/Sex: 78 / M ADM Date: 5 Loc: UL Room: Type: [facility] Attending Dr: Mick Branch MD Ordering [...] MASS.. Impression dictated by: Kartik Claros Jr., DKitaOKita05/21/2024 10:23 AM Dictation Location: [place] [address] Tech: Lizzy Shraddha Transcribed By: USMAN 05/21/24 1023 Dictated By: Kartik Claros Jr, DO 05/21/24 1022 Signed By: 05/21/24 1023 [facility]02-06-2025 Evaluation note* Diagnosis Onset Date Resolution Status Admit Date Cirrhosis, nonalcoholic acuteFebruary 2024 12:56pmEsophageal varicesacuteFebruary 2024 12:56pm GAVE (gastric antral vascular ectasia)acuteFebruary 2024 12:56pmIron deficiency anemiaacuteFebruary 2024 12:56pmMetabolic dysfunction-associated steatohepatitis (MASH)acuteFebruary 2024 12:56pmMetabolic dysfunction- associated steatotic liver disease (MASLD)acuteFebruary 2024 12:56pm Pancytopenia, acquiredchronicFebruary 2024 12:56pm [facility] Work Phone: [phone]) 443-857512-19-2024 History of Present illness Narrative* Frantz Conley [...] by mouth 1 (one) time each day. Rheems-3 Fatty Acids (Fish Oil) 1000 MG capsule [...] cholecystitis 08/13/2022 Anemia CAD (coronary artery disease) ([facility]/HCC) Calculus of gallbladder with acute on chronic [...] need - Influenza, high-dose seasonal, quadrivalent, PF (UQM591) (Fluzone High Dose Quad North 0.7mL dose) Coronary artery disease involving [place] coronary artery of [place] heart without angina pectoris (CMS/HCC) - The patient is experiencing no symptoms from this condition currently, it is considered medicallycontrolled and no change in current therapies are planned. Mixed hyperlipidemia (CMS/HCC) - Lipid panel; Future Acquired hypothyroidism (CMS/HCC) - TSH W/REFLEX TO FT4; Future Prostate cancer screening - PSA Follow up in about 6 months (around 09/10/2024) for Wellness. documented in this encounterMissouri Delta Medical CenterTjfajxkudt04-73-4117 History of Present illness Narrative* Crescencio Marin, [...] with PCI of the ostial/proximal circumflex at [facility] he says around 3 years ago [...] daily., Disp: , Rfl: fish oil concentrate (Rheems-3) 120-180 mg capsule, Take 1 capsule (1,000 [...] Scribe Attestation By signing my name below, IShawna RN , Scribe attest that this documentation [...] and plan. documented in this [facility] Work Phone: 1(589) 454-172210-09-2024 Instructions* Patient Instructions* Shawna Flores RN - [...] on exercise. documented in this [facility] Work Phone: [phone]) 241-874907-31-2024 [facility] noteCommunity [facility] Center03-28-2024 History of Present illness Narrative* Crescencio Marin, - 06/20/2023 10:00 AM EDT Cardiology Consultation- [...] with PCI of the ostial/proximal circumflex at [facility] he says around 3 years ago [...] bedtime., Disp: , Rfl: fish oil concentrate (Rheems-3) 120-180 mg capsule, Take 1 capsule (1,000 [...] Attestation By signing my name below, IBernadette LPN Sc[employer]blessing attest that this documentation has been prepared [...] exam, discussion and plan. documented in this encounterUnUniversity Hospitals Lake West Medical Center Work Phone: 1(768) 772-410803-28-2024 Instructions* Patient Instructions* Bernadette Santillan LPN - [...] Provided instructions on exercise. documented in this encounterSelect Medical [facility] Work Phone: [phone]) 123-621302-14-2024 History of Present illness Narrative* Frantz Conley MD - 05/08/2023 10:30 AM EST Subjective Patient ID: Pankaj Payne is a 77 y.o. male who presents for Follow-up (H stay: admitted 04/30/23 dx: anemia discharged home 05/01/23 follow up with hematology was 05/07/23) and Anemia. Flowsheet Row Telephone from 05/03/2023 in [facility] with Frantz Conley MD Discharge Information ED or Hospital Discharge? Hospital Patient has been contacted within two business days of discharge Yes Discharge Date 05/01/23 Discharge Hospital [facility] Discharged To: Home Setting Engagement Call [...] by mouth 1 (one) time each day. Rheems-3 Fatty Acids (Fish Oil) 1000 MG capsule [...] 06/05/2023) for Test/Lab Review. documented in this encounterMissouri Delta Medical [id number] Evaluation note* Encounter Date Diagnosis Assessment Notes Treatment Notes Treatment Clinical Notes Aug, Cirrhosis (ICD-10 - K74.60) Dr. Conley (PCP) will order lab work Repeat fibroscan in 2024 Rto 1 yr Aug,NAFLD (nonalcoholic fatty liver disease) (ICD-10 - K76.0) Aug,NASH (nonalcoholic steatohepatitis) (ICD-10 - K75.81) [facility] Other 05-17-2023 Consult note Author Zoila Castorena [facility] August 08, 2022 3:09pmNote Date/TimeMay 2022 2:08pmUt Health [place] [address] Hem/Onc Consult Note - OP Signed Patient: Pankaj Payne MR#: [id number] : 1945 Acct:[id number] Age/Sex: 77 / M Type: REG RCR [...] 8siblings all of his sisters were diagnosed withepilepsy. He has an older brother who was diagnosed with cancer involving his lungs and his face but he does not know much details about the etiology. Patient had a remote tobacco history about 40 years ago smoking cigars while he was in the [employer] but was not a regular cigarette smoker. He denies any use of alcohol. He was contacted recently by Dr. Conley concerned that his blood counts hadbeen lower than previous values and that he [...] PO QAM 04/26/21 [History Confirmed 08/08/22] omega 7-klt-qgw-fish oil 1,000 mg (120 mg-180 mg) capsule (Fish Oil) 1 cap PO TID 04/26/21 [HistoryConfirmed 08/08/22] omeprazole 40 mg capsule,delayed release 40 [...] history of nonalcoholic steatohepatitis who has been followedover the last 10 years. He denies any use of alcohol and has had prior viral hepatitis testing thatwas negative in the past. He was seen [...] and if he does have any vitamin def iciencies we will potentially contact him sooner for vitamin replacement therapy. Patient expressedunderstanding over this moderate complexity 45-minute visit for review of outside records and coordination of care with gastroenterology. I would like to thank you very much for the courtesy of this referral. I will keep you up-to-date with this patient's progress. Should you have any questions regarding the management of this patient,please do not hesitate to contact me. Sincerely, [...] complexity work-up of pancytopenia, known history of Placsencia cirrhosis. Coordination of Care & Counseling Time: Greater than 50% of time spent with patient was for coordination of care (as documented) and vpso-fn-rwor counseling of patient and/or family. Dictated By: Zoila Castorena MD DD/ 1404 Signed By: <Electronically signed by MD Zoila Castorena> 08/08/22 6587 [facility] Work Phone: 1(842) 911-507206-22-2022 Evaluation note* Encounter Date Diagnosis Assessment Notes Treatment Notes Treatment Clinical Notes Aug, Fatty liver (ICD-10 - K76.0) ENCOURAGED WATCHING DIET, EXERCISE AND WEIGHT LOSS. WILL NEED TO MONITOR IMAGING EVERY 6 MONTHS. PROCEED WITH EGD Aug,ther cirrhosis of liver (ICD-10 - K74.69) Aug,NAFLD (nonalcoholic fatty liver disease) (ICD-10 - K76.0) Aug,NASH (nonalcoholic steatohepatitis) (ICD-10 - K75.81) [facility] Other 05-26-2022 Hospital Discharge instructions* Instructions* Pato [...] called to the trauma nurse line at [phone] and please leave a message. Trauma is [...] Injury Discharge Instructions Thank you for choosing [facility] and [facility] for your recovery needs. The following instructions will help to ensure your comfort and that you are wellprepared for your recovery. Follow-up Visit: The office is located at: [facility] [address] [place] [address], [address], [place] [address] [x] Please have a CT scan of your head done prior to this appointment. Please also call your primary care physician to schedule an appointment for further evaluation and care. You can obtain CT head closer to home and have them electronically send the imaging to [facility] so we can see the scan You can follow up with Neurosurgery closer to home of you can do virtual visit with [facility] outpatient [employer] W[employer] Ok to restart your ASPIRIN today 08/17 [...] medications. YOU SHOULD CALL THE OFFICE AT [phone] IF YOU HAVE ANY OF THE FOLLOWING: [...] the emergency department. 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 [...] Minutes: 8 Minutes Javi Rincon PT * Jazminterry Connor, OT - 08/17/2021 1:06 PM EDT Occupational Therapy Facility/Department: [facility] Occupational Therapy Initial Assessment Name: [...] Ambulation Assistance: Independent Transfer Assistance: Independent Active Assisted Living Nursing Director: Yes 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 [...] Inpatient Daily Activity Raw Score: 24 (08/17/21 1307) AM-PAC Inpatient ADL T-Scale Score : 57.54 (08/17/21 1307) ADL Inpatient CMS 0-100% Score: 0 (08/17/21 1307) ADL Inpatient [facility] G-Code Modifier : CH (08/17/21 1307) Goals [...] Date: 08/16/2021 Hospital day 1 Other vehicle: [employer] Past Medical History: Diagnosis Date Hyperlipidemia Hypertension [...] HISTORY: ORDERING SYSTEM PROVIDED HISTORY[facility] TECHN[facility] PROVIDED HISTORY: SAH and [...] SYSTEM PROVIDED HISTORY: Impact with object riding equipment analyst TECHNOLOGIST PROVIDED HISTORY: Impact with object riding equipment analyst Decision Support Exception - unselect if not [...] most recent progress note [facility] [employer] Phone: 1(931) 572-747104-19-2022 Evaluation note* Encounter Date Diagnosis Assessment Notes Treatment Notes Treatment Clinical Notes Jun, Cirrhosis (ICD-10 - K74.60) [facility] Other 03-01-2022 History general Narrative - Reported* Type Description Date Surgical History cholecystectomy 05/2021 Surgical History heart stent Surgical Historycataracts, bilaterally [facility] Other 03-01-2022 History general Narrative - Reported* Type Description Date Surgical History cholecystectomy 05/2021 Surgical History heart stent Surgical Historycataracts, bilaterallyHospitalization Historysee surgical hx [facility] Other Evaluation note* Diagnosis SAH (subarachnoid hemorrhage) (HCC)- Primary Subarachnoid hemorrhage Subarachnoid hemorrhage following injury, no loss of consciousness, initial encounter (HCC) Facial laceration, initial encounter Subdural hematoma (HCC) Subdural hemorrhage documented in this encounter [facility] [employer] Phone: evaluation noteNo assessment information available [facility] Work Phone: Evaluation note* Diagnosis Onset Date Resolution Status Liver cirrhosis secondary to nonalcoholi c steatohepatitis (PLASCENCIA) chronicPancytopenia, acquiredchronic [facility] Work Phone: Evaluation note* Diagnosis Pancytopenia, acquired (CMS/HCC)- Primary Pancytopenia Iron deficiency anemia, unspecified iron deficiency anemia type Other cirrhosis of liver (CMS/HCC) Fatty liver disease, 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 in this encounter [facility] HealthcareEvaluation note* Diagnosis ASHD (arteriosclerotic heart disease) Coronary atherosclerosis of unspecified type of vessel, [place] or graft History of coronary artery stent placement Ascending aorta dilation (CMS/HCC) Thoracic aneurysm without mention of rupture Iron deficiency anemia, unspecified iron deficiency anemia type PVC (premature ventricular contraction) Other premature beats Former cigarette smoker Personal history of tobacco use, presenting hazards to health documented in this encounter [facility] Work Phone: Evaluation note* Diagnosis Onset Date Resolution Status Cirrhosis, nonalcoholic acuteNon-alcoholic fatty liver diseaseacuteNonalcoholic steatohepatitis (PLASCENCIA) acute [facility] Work Phone: Evaluation note* Diagnosis ASHD (arteriosclerotic heart disease) Coronary atherosclerosis of unspecified type of vessel, [place] or graft PVC (premature ventricular contraction) Other premature beats History of coronary artery stent placement Former cigarette smoker Personal history of tobacco use, presenting hazards to health BMI 29.0-29.9,adult Bradycardia Other specified cardiac dysrhythmias documented in this encounter [facility] Work Phone: Evaluation note* Diagnosis Benign essential HTN (CMS/HCC)- Primary Flu vaccine need Coronary artery disease involving k[place]nuk coronary artery of [place] heart without angina pectoris (CMS/HCC) Mixed hyperlipidemia (CMS/HCC) Mixed hyperlipidemia Acquired hypothyroidism (CMS/HCC) Unspecified hypothyroidism Prostate cancer screening Special screening for malignant neoplasm of prostate documented in this encounter [facility] HealthcareEvaluation note* Diagnosis Mixed hyperlipidemia (CMS/HCC)- Primary Mixed hyperlipidemia documented in this encounter [facility] HealthcareEvaluation note* Diagnosis ASHD (arteriosclerotic heart disease) Coronary atherosclerosis of unspecified type of vessel, [place] or graft History of coronary artery stent placement PVC (premature ventricular contraction) Other premature beats BMI 30.0-30.9,adult Former cigarette smoker Personal history of tobacco use, presenting hazards to health Hyperlipidemia, unspecified hyperlipidemia type documented in this encounter [facility] Work Phone: Evaluation note* Diagnosis Sinus bradycardia- Primary Other specified cardiac dysrhythmias PVCs (premature ventricular contractions) Other premature beats Coronary artery disease involving [place] coronary artery of [place] heart without angina pectoris 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) documented in this encounter [facility] HealthcareEvaluation note* Diagnosis Medicare annual wellness visit, subsequent- Primary ACP (advance care planning) Other specified counseling Chronic insomnia Insomnia, unspecified Other chronic pain Benign essential HTN Benign hypertensive heart and CKD, 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), w CHF (HCC) Coronary artery disease involving [place] coronary artery of [place] heart without angina pectoris Dilatation of aorta [...] unspecified iron deficiency anemia type Pancytopenia, acquired ([facility]) Pancytopenia Former cigarette smoker Personal history of tobacco use, presenting hazards to health Mixed hyperlipidemia Mixed hyperlipidemia Situational anxiety Unsteadiness on feet Esophageal varices without bleeding (HCC) Esophageal varices without mention of bleeding Other secondary pulmonary hypertension (HCC) Grade II diastolic dysfunction documented in this encounter [facility] HealthcareEvaluation note* Diagnosis Onset Date Resolution Status Admit Date Cirrhosis, nonalcoholic acuteAugust 2024 1:26pmEsophageal varicesacuteAugust 2024 1:26pm Metabolic dysfunction-associated steatohepatitis (MASH)acuteAugust 2024 1:26pm [facility] Work Phone: Evaluation note* Diagnosis Sinus node dysfunction (Multi)- Primary ASHD (arteriosclerotic heart disease) Coronary atherosclerosis of unspecified type of vessel, [place] or graft BMI 30.0-30.9,adult documented in this encounter [facility] Work Phone: Evaluation note* Diagnosis Hospital discharge follow-up- Primary Other follow-up examination Cough, unspecified type Constipation, unspecified constipation type documented in this encounter [facility] HealthcareEvaluation note* Diagnosis Sinus node dysfunction (Multi)- Primary ASHD (arteriosclerotic heart disease) Coronary atherosclerosis of unspecified type of vessel, [place] or graft BMI 30.0-30.9,adult Localized edema Edema Sinus node dysfunction (Multi) PVC (premature ventricular contraction) Other premature beats History of coronary artery stent placement ASHD (arteriosclerotic heart disease) Coronary atherosclerosis of unspecified type of vessel, [place] or graft Ascending aorta dilation Thoracic aneurysm without mention of rupture Former cigarette smoker Personal history of tobacco use, presenting hazards to health BMI 31.0-31.9,adult CHF (congestive heart failure), NYHA class I, unspecified failure chronicity, diastolic (Multi) documented in this encounter [facility] Work Phone: History and physical note Author Mick Branch [facility] October 23, 2023 10:14amNote Date/TimeJuly 2023 10:14[place] [address] Gastroenterology H&P Signed Patient: Pankaj Payne MR#: [id number] : 1945 Acct:[id number] Age/Sex: 78 / M Adm Date: 4 Loc: Room: Type: [facility] Attending Dr: Mick Branch MD Copies to: MD Frantz Dobbins II, MD~ Date of Service: 10/23/2023 HISTORY & PHYSICAL: Patient's history with special attention to the cardiovascular, pulmonary systems and the current problem was reviewed with the patient immediately prior to the procedure. Present medications and doses reviewed in the EMR. Allergies and pertinent laboratory tests were also re viewedat this time in the EMR. The physical [...] signed by Mick Branch MD> 10/23/23 1014 [facility] Work Phone: Hospital Discharge instructions Additional [...] cancer screening. -Continue to follow with your geographic area intelligence officer Dr. Sevilla. -Notify the doctor if you have any problems. -Follow up with PCP. - Office number [phone].[facility] Work Phone: reason for referral (narrative)* Consultation (Routine) - AuthorizedSpecialtyDiagnoses / ProceduresReferred By Contact Referred To ContactGastroenterology Diagnoses Iron deficiency anemia, unspecified iron deficiency anemia type Procedures [place] OFFICE/OUTPATIENT NEW HIGH [facility] 60 MINUTES Frantz Conley MD [address] [facility] [address] [place] [address] Mick Branch MD [address] [facility] [address] [place] [address] Referral IDStatusReasonStart DateExpiration DateVisits RequestedVisits [id number] Specialty Services Required / [facility] for referral (narrative)No reason for referral information availableNewark [facility]tr Work Phone: [employer] for visit NarrativePT HERE AT REQUEST OF DR DAY FOR EVALUATION AND TREATMENT OF CIRRHOSIS, REFERRAL NOTE RECEIVEDHenlawson FST [employer] Other Summary Purpose Family History No Family History Records Found Relationship Condition Age at Onset Recorded Date/T tanja brother Malignant neoplasm of lung Unknown Not SpecifiedDisorder of liverUnknownfatherChronic obstructive pulmonary disease UnknownsisterEpilepsyUnknownMalignant neoplasmUnknownType 2 diabetes mellitus UnknownbrotherSuicideUnknownbrotherChronic obstructive pulmonary diseaseUnknown sisterChronic obstructive pulmonary diseaseUnknown Relationship Condition Age at Onset Recorded Date/T tanja brother Malignant neoplasm of lung Unknown motherDisorder of liverUnknownfatherChronic obstructive pulmonary diseaseUnknown sisterEpilepsyUnknownMalignant neoplasmUnknownType 2 diabetes mellitusUnknown brotherSuicideUnknownbrotherChronic obstructive pulmonary diseaseUnknownsister Chronic obstructive pulmonary diseaseUnknown Advance Directives No Advanced Directives Records FoundLatest Code Status on File Code StatusDate ActivatedDate InactivatedCommentsFull Code08/16/2021 8:15 PM Advance Directive Response Recorded Date/ Time Advance Directives No April 24, 2021 10:52am Advance Directive Response Recorded Date/ Time Advance Directives No April 24, 2021 9:52am Hospital Course Note MR#: [id number] [facility] Pt. Name: Pankaj Payne Admitted: 02/28/2018 [...] (more content not included)... Reason for Referral SpecialtyDiagnoses / ProceduresReferred By ContactReferred To ContactRadiology Diagnoses Subarachnoid hemorrhage following injury, no loss of consciousness, initial encounter ([facility]) Procedures CT HEAD WO CONTRAST Pato Grissom, RETAIL LEASING AGENT - PRIM[employer] POWDER BLEND[employer] WET [address] [place] [address] Referral IDStatusReasonStart DateExpiration DateVisits RequestedVisits [id number]/2/20226/2/209307TnoxxafvzJgjgmitio / ProceduresReferred By ContactReferred To ContactCardiology Diagnoses PVC (premature ventricular contraction) Procedures Holter Or Event Yardage Control Clerk Crescencio Marin, DO [address] [place] [phone] Referral IDStatusReasonStart DateExpiration DateVisits RequestedVisits [id number] [id number] / ProceduresReferred By ContactReferred To Contact Diagnoses PVC (premature ventricular contraction) Procedures ECG 12 Lead Crescencio Marin, DO [address], [facility] [address] [place] [phone] Referral IDStatusReasonStart DateExpiration DateVisits RequestedVisits [id number]/28/20243/28/306417VrzmkpnasHefojqacj / Procedures Referred By ContactReferred To ContactCardiology Diagnoses ASHD (arteriosclerotic heart disease) Procedures Follow Up In Cardiology Crescencio Marin, DO [address], [address] [place], [place] [phone] Crescencio Marin, DO [address], [place] [phone] Referral IDStatusReasonStglen white DateExpiration DateVisits RequestedVisits [id number]/28/20243/28/790467CwuqmtmcbJursbqbey / Procedures Referred By ContactReferred To Contact Diagnoses PVC (premature ventricular contraction) Bradycardia Procedures ECG 12 Lead Crescencio Marin, DO [address], [address] [place], [place] [phone] Referral IDStatusReasonStart DateExpiration DateVisits RequestedVisits [id number]/9/202410/9/324567Pzprurcb IDStatusReasonStart Date Expiration DateVisits RequestedVisits [id number]/9/2024 Chief Complaint and Reason for Visit Chief Complaint fatty liver fatty liver K76.0 n28.1 R06.00 Chief Complaint pancytopenia Reason for Visit 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) Pancytopenia, acquired Chief Complaint pancytopenia K74.60 K76.0 K75.81Reason for Visit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) Pancytopenia, acquired Chief Complaint Unknown Chief Complaint Unknown d61.818 Chief Complaint 1 year follow up K76.0 K74.60 K75.81Reason for VisitCirrhosis, nonalcoholic Non-alcoholic fatty liver disease Nonalcoholic steatohepatitis (PLASCENCIA) Chief Complaint 1 year follow up K76.0 K74.60 K75.81 K74.60 K76.0 K75.81Reason for VisitCirrhosis, nonalcoholic Non-alcoholic fatty liver disease Nonalcoholic steatohepatitis (PLASCENCIA) Chief Complaint 1 year follow up K76.0 K74.60 K75.81 K74.60 K76.0 K75.81 cirrhosis/Screening cirrhosis/ScreeningReason for VisitCirrhosis, nonalcoholic Non-alcoholic fatty liver disease Nonalcoholic steatohepatitis (PLASCENCIA) [...] section and content) DATE CREATED AUTHOR 03/05/2018 [facility] DATE CREATED AUTHOR AUTHOR'S ORGANIZ ATION 11/12/2018 [facility] DATE CREATED AUTHOR AUTHOR'S ORGANIZ ATION 06/08/2021 [facility] DATE CREATED AUTHOR AUTHOR'S ORGANIZ ATION 08/20/2021 [facility] DATE CREATED AUTHOR AUTHOR'S ORGANIZ ATION 11/15/2021 [facility] DATE CREATED AUTHOR AUTHOR'S ORGANIZ ATION 07/11/2024 [facility] DATE CREATED AUTHOR AUTHOR'S ORGANIZ ATION 01/09/2025 [facility] DATE CREATED AUTHOR AUTHOR'S ORGANIZ ATION 01/26/2025 [facility] DATE CREATED AUTHOR AUTHOR'S ORGANIZ ATION 01/28/2025 [facility] Reason for Visit (unrecogniz ed section and content) ReasonCommentsHead InjuryReasonCommentsFollow-upTBH stay: admitted 04/30/23 dx: anemia discharged home 05/01/23 follow up with hematology was 05/07/23AnemiaReason CommentsNew Patient VisitReferral for CADSpecialtyDiagnoses / ProceduresReferred By ContactReferred To Contact Diagnoses PVC (premature ventricular contraction) Procedures ECG 12 Lead Crescencio Marin, DO [address], [address] [place] [address] Referral IDStatusReasonStart DateExpiration DateVisits RequestedVisits [id number]/28/20243/28/780764RsysupQchbziebDvwicr-hd0 month SpecialtyDiagnoses / ProceduresReferred By ContactReferred To ContactCardiology Diagnoses ASHD (arteriosclerotic heart disease) Procedures Follow Up In Cardiology Crescencio Marin, DO [address], [address] [place], [place] [phone] Crescencio Marin, DO [address], [address] [place] [phone] Referral IDStatusReasonStart DateExpiration DateVisits RequestedVisits [id number]/28/20243/28/294339PiutllElduuxwhEqngksugaebcZwfvqi Onset DateCommentsMed Wnrcjj0604/22/2024ReasonCommentsFollow-up8 month visit for cad.SpecialtyDiagnoses / ProceduresReferred By ContactReferred To Contact Cardiology Diagnoses ASHD (arteriosclerotic heart disease) Procedures Follow Up In Cardiology Crescencio Marin DO [address] [facility] [place] [address] Phone: tel: fax: Crescencio Marin, DO [address] [facility] [address] [place] [address] Phone: tel: fax: Referral IDStatusReasonStart DateExpiration DateVisits RequestedVisits [id number]/9/202410/9/387378VefyahGslyeokfBviqqpxozrpIsfkzj CommentsMedicare Annual Wellness Visit SubsequentReasonCommentsFollow-upBellevue discharge 12/25. Patient states problems were from stress after ReasonCommentsFollow-up2 week follow up for ASHD Ordered Prescriptions (unrec ognized section and content) PrescriptionSigDispensedRefillsStart DateEnd Date clopidogrel (PLAVIX) 75 MG tablet Take 1 tablet by mouth daily 30 tablet clopidogrel (PLAVIX) 75 MG tablet Take 1 tablet by mouth daily 30 tablet / Scheduled Active and Recently Administ ered Medications (unrecognized section and content) Medication Order/ acetaminophen (TYLENOL) tablet 1,000 mg 1,000 mg, Oral, EVERY 8 HOURS SCHEDULED (3 times per day), First dose on Sat08/16/21 at 2200, UntilDiscontinued, Maximum dose of acetaminophen is 4000 mg from all sources in 24 hours. * 2119 (Given - Provider: Josephine Romero RN) * 0546 (Given - Provider: Remeidos Polanco RN) * 1400 (Due) * 0 (Due) atorvastatin (LIPITOR) tablet 20 mg 20 mg, Oral, Nightly, First dose on Sat08/16/21 at 2100, Until Discontinued * 2119 (Given - Provider: Josephine Romero RN) * 2100 (Due) levothyroxine (SYNTHROID) tablet 100 mcg 100 mcg, Oral, DAILY, First dose on Sat08/17/21 at 0700, Until Discontinued, Tube feeding (TF) interaction, obtain physician order to manage, recommend holding TF for 30 minutes before and after dose. * 0600 (Given - Provider: Remedios Polanco RN) pantoprazole (PROTONIX) tablet 40 mg 40 mg, Oral, DAILY BEFORE BREAKFAST, First dose on Sat08/17/21 at 0730, Until Discontinued, Do not crush or break. Substituted for Omeprazole (PRILOSEC). * 0730 (Not Given - Provider: Sybil Avalos RN - Reason: Other - Comment: med requested, med not on unit. Patient being discharged) polyethylene glycol (GLYCOLAX) packet 17 g 17 g, Oral, DAILY, First dose on Sat08/16/21 at 2030, Until Discontinued * 2029 (Due) * 0837 (Not Given - Provider: Sybil Avalos RN - Reason: Patient/family refused - Comment:patient refused. states last BM was yesterday afternoon) sodium chloride flush 0.9 % injection 5-40 mL 5-40 mL, IntraVENous, EVERY 12 HOURS SCHEDULED (2 times per day), First dose on Sat08/16/21 at 2100, Until Discontinued, For Line Patency: Peripheral IV = 5 mL; Midline or Central Line = 10 mL/lumen.If following IV push medication, administer flush at same rate as the IV push. Flush volume is determined by type of infusion therapy being given. For non-viscous solutions use: Peripheral IV = 5 mL Midline or Central Line = 10 mL/lumen For viscous solutions (i.e. blood components, parenteral nutrition, contrast media, or after obtaining blood sample) use: Peripheral IV = 10 mL Midline or CentralLine = 20 mL/lumen * 2211 (Not Given - Provider: Remedios Polanco RN - Reason: IV Fluid Infusing) * 0838 (Given - Provider: Sybil Avalos RN) * 2100 (Due) therapeutic multivitamin-minerals 1 tablet 1 tablet, Oral, DAILY, First dose on Sat08/16/21 at 2030, Until Discontinued * 212 (Given - Provider: Josephine Romero RN) * 0838 (Given - Provider: Sybil Avalos, MARISOL) tiZANidine (ZANAFLEX) tablet 4 mg 4 mg, Oral, NIGHTLY, First dose on Sat08/16/21 at 2100, Until Discontinued * 2014 (Held by provider - Provider: Rishi Arteaga DO - Reason: Other) * 2015 (Unheld by provider - Provider: Rishi Artaega DO) * 2119 (Given - Provider: Josephine Romero, MARISOL) * 2099 (Due - Provider: Rishi Arteaga DO) Medication Order/ 0.9 % sodium chloride infusion (CANCELED) IntraVENous, at 75 mL/hr, CONTINUOUS, Starting on Sat08/16/21 at 2029 * 2122 (New Bag - Provider: Josephine Romero, RN) * 2123 (Rate/Dose Verify - Provider: Remedios Polanco RN) * 0020 (Rate/Dose Verify - Provider: Remedios Polanco RN) * 0457 (Rate/Dose Verify - Provider: Remedios Polanco RN) * 0707 (Rate/Dose Verify - Provider: Remedios Polanco RN) * 1009 (Stopped - Provider: Sybil Avalos RN) Medication Order// 0.9 % sodium chloride infusion IntraVENous, at [...] For viscous solutions (i.e. blood components, parenteral nutrition,contrast media, or after obtaining blood sample) use: Peripheral IV = 10 mL Midline or Central Line= 20 mL/lumen Order Group 1: ondansetron (ZOFRAN-ODT) disintegrating tablet [...] content) Team Status: Active Member Role Status Virgilio Conley II MD Primary Care Provider Active Team Status: Inactive Member Role Status Virgilio Manning MD Attending Provider Active Sta rt: May 01, 2023 End: May 01, 2023 Team Status: Inactive Member Role Status Virgilio Conley II MD Primary Care Provid er, Attending Provider Active Start: June 05, 2023 End: June 05, 2023Team MemberRelationshipSpecialtyStart DateEnd Date Frantz Conley MD [address] [place] [address] PCP - GeneralInternal Medicine08/16/21 Team Status: Inactive Member Role Status Virgilio Conley II MD Primary Care Provider Active Yohannes Dobbinsending ProviderActive Team Status: Inactive Member Role Status Dates Frantz Conley II MD Primary Care Provider, Attending Provider Active Team Status: Active Member Role Status Dates Frantz Conley II MD Primary Care Provider, Referring Provider Active Reva Saldaña ProviderActiveTeam MemberRelationshipSpecialtyStart Date End Date Frantz Conley MD [address] [place] [address] PCP - [facility]08/08/22 Frantz Conley MD [address] [place] [address] PCP - [facility]08/16/22Team MemberRelationshipSpecialtyStart DateEnd Date Frantz Conley MD [address] [place] [address] PCP - [facility]08/08/22 Frantz Conley MD [address] [place] [address] PCP - [facility]08/16/22Team MemberRelationshipSpecialtyStart DateEnd Date Frantz Conley MD [address] [place] [address] PCP - [facility]06/20/23 Team Status: Inactive Member Role Status Dates Frantz Conley II MD Primary Care Provider Active Start: September 17, 2023 End: September 16Reva Curtis ProviderActiveStart: September 17, 2023 End: September 17, 2023 Team Status: Inactive Member Role Status Dates Frantz Conley II MD Primary Care Provider Active Start: October 01, 2023 End: September 30Reva Curtis ProviderActiveStart: October 01, 2023 End: October 01, 2023 Team Status: Inactive Member Role Status Dates Frantz Conley II MD Primary Care Provider Active Start: October 23, 2023 End: October 22geno Branch , Reva ProviderActiveStart: October 23, 2023 End: October 23, 2023 Team Status: Active Member Role Status Dates Frantz Conley II MD Primary Care Provider Active Start: October 23, 2023 Reva Dobbins Provider, Other ProviderActiveStart: October 23, 2023 Team MemberRelationshipSpecialtyStart DateEnd Frantz Conley MD [address] [place] [address] PCP - GeneralInternal Medicine08/08/22 Frantz Conley MD [address] [place] [address] PCP - [facility]08/16/22Team MemberRelationshipSpecialtyStart DateEnd Date Frantz Conley MD [address] [place] [address] PCP - [facility]08/08/22 Frantz Conley MD [address] [place] [address] PCP - [facility]08/16/22Team MemberRelationshipSpecialtyStart DateEnd Date Frantz Conley MD [address] [place] [address] PCP - [facility]08/08/22 Frantz Conley MD [address] [place] [address] PCP - [facility]08/16/22Team MemberRelationshipSpecialtyStart DateEnd Date Frantz Conley MD [address] [place] [address] PCP - GeneralInternal Medicine08/08/22 Frantz Conley MD [address] [place] [address] PCP - [facility]08/16/22 Team Status: Inactive Member Role Status Dates Frantz Conley II MD Primary Care Provider Active Start: April 30, 2024 End: April 30Yohannes Curtisending ProviderActiveStart: April 30, 2024 End: April 30, 2024 Team Status: Inactive Member Role Status Dates Frantz Conley II MD Primary Care Provider Active Start: May 21, 2024 End: May 21Yohannes Curtisending ProviderActiveStart: May 21, 2024 End: May 21, 2024Team MemberRelationshipSpecialtyStart DateEnd Date Frantz Conley MD [address] [place] [address] PCP - [facility]Internal [facility]06/20/23Team MemberRelationshipSpecialtyStart Date End Date Frantz Conley MD [address] [place] [address] PCP - GeneralInternal Medicine08/08/22 Frantz Conley MD [address] [place] [address] PCP - [facility]08/16/22Team MemberRelationshipSpecialtyStart DateEnd Date Frantz Conley MD [address] [place] [address] PCP - GeneralInternal Medicine08/08/22 Frantz Conley MD [address] [place] [address] PCP - [facility]08/16/22Team MemberRelationshipSpecialtyStart DateEnd Date Frantz Conley MD [address] [place] [address] PCP - [facility]08/08/22 Frantz Conley MD [address] [place] [address] PCP - [facility]08/16/22 Team Status: Inactive Member Role Status Dates Frantz Conley II MD Primary Care Provider Active Start: November 02, 2024 End: November 02Reva Curtis ProviderActiveStart: November 02, 2024 End: November 02, 2024 Team Status: Inactive Member Role Status Dates Frantz Conley II MD Primary Care Provider Active Start: November 11, 2024 End: November 11Reva Curtis ProviderActiveStart: November 11, 2024 End: November 11, 2024Team MemberRelationshipSpecialtyStart DateEnd Date Frantz Conley MD [address] [place] [address] PCP - [facility]08/08/22 Frantz Conley MD [address] [place] [address] PCP - [facility]08/16/22 Team Status: Active Member Role Status Dates Alex Marin DO Security Ambassador Active Team Status: Inactive Member Role Status Dates cR Hernandez MD Attending Provider Active Sta rt: December 25, 2024 End: December 25, 2024Team MemberRelationshipSpecialtyStart DateEnd Date Frantz Conley MD [address] [facility] [address] [place] [address] PCP - [facility]Bannernal [facility]06/20/23Team MemberRelationshipSpecialtyStart Date End Date Frantz Conley MD [address] [facility] [address] [place] [address] PCP - GeneralBannernal [facility]08/08/22 Frantz Conley MD [address] [facility] [address] [place] [address] PCP - [facility]08/16/22Team MemberRelationshipSpecialtyStart DateEnd Date Frantz Conley MD [address] [facility] [address] [place] [address] PCP - [facility]06/20/23 Goals (unrecognized section and content) Goals may [...] BE BASED ON THE PRIMARY CLINICAL RECORDS. [employer] [facility]. provides no warranty or guarantee of the accuracy or completeness of information in this document.
[2025-01-29 09:59] LABS: Hematocrit 35.5 % (42.0-54.0); Hemoglobin 11.0 g/dL (14.0-18.0); Mean Corpuscular HGB Conc 31.0 g/dL (29.9-35.2); Mean Corpuscular Hemoglobin 30.8 pg (25.9-34.0); Mean Corpuscular Volume 99.4 fL (80.0-94.0); Platelet Count 94 10^3/uL (150-450); Red Blood Count 3.57 10^6/uL (4.70-6.10); White Blood Count 3.9 10^3/uL (4.0-11.0)
[2025-01-29 11:20] LABS: Iron 73.0 ug/dL (65.0-175.0); Percent Iron Saturation 29.4 %; Total Iron Binding Capacity 248.0 ug/dL (250.0-450.0)
[2025-01-29 13:13] LABS: Basophils Abs Manual 0.00 10^3/uL (0.00-0.10); Basophils Percent Manual 0.0 % (0.2-2.0); Eosinophils Absolute Manual 0.31 10^3/uL (0.00-0.70); Eosinophils Percent Manual 8.0 % (0.9-7.0); Lymphocytes Absolute Manual 0.78 10^3/uL (1.20-3.80); Lymphocytes Percent Manual 20.0 % (20.5-60.0); Monocytes Absolute Manual 0.07 10^3/uL (0.30-0.80); Monocytes Percent Manual 2.0 % (1.7-12.0); Segmented Neut Absolute Manual 2.73 10^3/uL (1.4-6.5); Segmented Neutrophils % Manual 70.0 (43.0-75.0)
== END 2025-01-29 09:06 | disposition home or self-care (01) ==
LOC: LAB 09:07
PROVIDERS: PCP Internal Medicine; Visit Provider Internal Medicine Hematology & Oncology
DX: D64.9 Anemia, unspecified (principal); D50.9 Iron deficiency anemia, unspecified; D50.0 Iron deficiency anemia secondary to blood loss (chronic); K90.9 Intestinal malabsorption, unspecified; D72.819 Decreased white blood cell count, unspecified; D69.6 Thrombocytopenia, unspecified; R60.0 Localized edema; I49.5 Sick sinus syndrome; I25.10 Atherosclerotic heart disease of native coronary artery without angina pectoris; I77.810 Thoracic aortic ectasia; I50.30 Unspecified diastolic (congestive) heart failure
CPT/HCPCS: 36415; 83540; 83550; 83880; 85007; 85025; 85027

== ENCOUNTER 2025-01-29 09:11 | Outpatient (OUT) | payer MEDICARE, OTHER, SELFPAY ==
--- OUTSIDE RECORDS SUMMARY | 2025-01-29 09:21 | XMS_ITS | CCD ---
Author Organization [facility]iniSy[facility] Care Team Providers [employer] Driver Name Role Phone Zahler, Hardeep Unavailable Unavailable [...] Care Unavailable RICHMOND, DR ROCHA Admitting Unavailable MERRICK, DR STEPHEN [employer] Unavailable RICHMOND, DR [...] Admitting Unavailable MOE, DR CARVAJAL Admitting Unavailable ELLEANN, DR CARVAJAL [...] Provider Jarvis, LIBBY Landry Primary Care Provider Jarvis, LIBBY Landry Attending Provider Frantz Conley MD Primary Care Provider Jarvis, LIBBY Landry Primary Care Provider MD Mick Branch Attending Provider Jarvis IIFrantz Primary Care Provider Mick Branch MD Attending Provider Jarvis IIFrantz Primary Care Provider [phone] Mick Branch MD Attending Provider Rc Hernandez [...] Douglas Rodrigues Consulting Unavailable Sri Estrada Consulting UnavailAreil Kasper Consulting Unavailable Dee Anthony Consulting Unavailable [...] tablet (20 sources)HMG-CoA Reductase InhibitorStart: 04-26-2021 End: 79-84-5819pvwm 1 tablet by mouth once dailyatorvastatin (Lipitor) 20 mg tablet Take 1 tablet (20 mg) by mouth once daily. 02/21/2023 Activebenzonatate 200 mg oral capsule (1 source)Non-narcotic AntitussiveStart: 01-07-2025 End: 71-51-1043wmvl 1 capsule by mouth three times daily as needed for cough benzonatate (Tessalon) 200 MG capsule Indications: Cough, unspecified type Take 1 capsule (200 mg) by mouth 3 (three) times a day as needed for cough for up to 10 days Do not crush or chew. 30 capsule 01/07/2025 01/17/2025 Activeclopidogrel 75 mg oral tablet (20 sources)P2Y12 Platelet InhibitorStart: 90-76-9872smop 1 tablet by mouth once dailyclopidogrel (Plavix) 75 mg tablet Take 1 tablet (75 mg) by mouth once daily. 04/05/2023 ActiveStart: 08-22-2021 End: 48-12-0775xwje 1 tablet by mouth once dailyclopidogrel (PLAVIX) 75 MG tablet Take 1 tablet by mouth daily 30 tablet 3 08/22/2021 08/17/2021 Dis continued (REORDER)Start: 26-33-7019huoh 1 tablet by mouth once dailyclopidogrel (PLAVIX) 75 MG tablet Take 1 tablet by mouth daily 30 tablet 3 08/22/2021 Active Start: 04-26-2021 End: 18-62-2879ciyj 1 tablet by mouth once daily in the morningdocosahexaenoic acid 120 mg / eicosapentaenoic acid 180 mg oral capsule (6 sources)take 1 capsule by mouth once dailyfish oil concentrate (Adams-3) 120- 180 mg capsule Take 1 capsule [...] oral tablet (1 source)Loop DiureticStart: 01-27-2025 End: 12-81-6053sckm 1 tablet by mouth once dailyfurosemide (Lasix) 20 mg tablet Indications: Localized edema Take 1 tablet (20 mg) by mouth once daily. 14 tablet 01/27/2025 01/27/2026 Activelevothyroxine sodium 0.088 mg oral tablet (20 sources)l-ThyroxineStart: 80-75-9889gleo 1 tablet by mouth once daily before mealtimelevothyroxine (Synthroid, Levoxyl) 88 mcg tablet Take 1 tablet (88 mcg) by mouth once daily in the morning. Take before meals. Take on an empty stomach. 05/14/2023 ActiveStart: 04-26-2021 End: 83-23-3978yedu 1 tablet by mouth once daily in [...] daily 0 Active Multivitamin preparation (12 sources)Start: 76-82-0899uaio 1 tablet by mouth once daily in the morning Multivitamin Active 1 TAB PO Every morning April 26, 2021 12:00amStart: 76-23-9186xosm 1 tablet by mouth once daily in the morningMultivitamin Active 1 TAB PO Every morning April 26, 2021 1:00amtake 1 tablet by mouth once daily Multivitamin - 1 tablet Orally Once a day ActiveMultivitamin Tablet (5 sources)Start: 34-39-2590pidk 1 tablet by mouth once daily in the morning Multivitamin Tablet Active 1 TAB PO Every morning April 26, 2021 1:00am Complies with drug therapyStart: 27-41-9090hjvl 1 tablet by mouth once daily in the morningStart: 47-39-9321xywz 1 tablet by mouth once daily in the morning Multivitamin Tablet Active 1 TAB PO Every morning April 26, 2021 12:00am multivitamin with minerals tablet (5 sources)take 1 tablet by mouth once dailymultivitamin with minerals tablet Take 1 tablet by mouth once daily. Activetake 1 tablet by mouth once daily multivitamin with minerals tablet Take 1 tablet by mouth once daily. 0 Active Adams 2-Cag-Wqm-Fish Oil (Fish Oil) 1,000 mg (120 mg-180 mg) Capsule (14 sources)Start: 48-53-4305axrl 1 capsule by mouth three times dailyOmega 6-Fnw-Akf-Fish Oil (Fish Oil) 1,000 mg (120 mg-180 mg) Capsule Active 1 CAP PO Three times daily April 26, 2021 1:00am Complies with drug therapyStart: 22-87-5867lelt 1 capsule by mouth three times dailyStart: 29-73-3030izzr 1 capsule by mouth three times dailyOmega 6-Ywf-Hda-Fish Oil (Fish Oil) 1,000 mg (120 mg-180 mg) Capsule Active 1 CAP PO Three times daily April 26, 2021 12:00amStart: 19-48-0424kfnu 1 capsule by mouth three times dailyOmega 9-Grq-Iqg-Fish Oil (Fish Oil) 1,000 mg (120 mg-180 mg) Capsule Active 1 CAP PO Three times daily April 26, 2021 1:00amOmega-3 Fatty Acids (Fish Oil) 1000 MG capsule delayed-release (20 sources)Start: 78-70-2147zgjx 1 capsule by mouth once dailyOmega-3 Fatty Acids (Fish Oil) 1000 MG capsule delayed-release Take 1 capsule by mouth 1 (one) timeeach day. 09/13/2014 ActiveStart: 48-26-4961srkw 1 capsule by mouth once dailyOmega-3 Fatty Acids (Fish Oil) 1000 MG capsule delayed-release Take 1 capsule by mouth 1 (one) timeeach day. 0 09/13/2014 Activeomeprazole 40 mg delayed release oral capsule (20 sources)Proton Pump InhibitorStart: 12-05-2023 End: 75-67-5643omrcpfwmmn (PriLOSEC) [address] capsule Indications: Gastroesophageal reflux disease without esophagitis TAKE 1 CAPSULE IN THE MORNING AND 1 CAPSULE IN THE EVENING. TAKE BEFORE MEALS. 180 capsule 3 02/2024 ActiveStart: 04-26-2021 End: 29-10-6471vtbx 1 capsule by mouth twice dailyomeprazole (PriLOSEC) [address] capsule Take 1 capsule (40 mg) by mouth 2 times a day. 01/09/2023 01/14/2025 Discontinued (Dose adjustment)ondansetron (ZOFRAN-ODT) disintegrating tablet 4 mg (1 source)Start: 51-21-6188paxgujyyyit (ZOFRAN-ODT) disintegrating tablet 4 mg polyethylene glycol 3350 05689 mg powder for oral solution (2 sources)Osmotic LaxativeStart: 01-07-2025 End: 22-22-4740xqti 17 g by mouth every twenty-four hours as needed for constipation and constipationpolyethylene glycol, PEG, 3350 (Miralax) 17 g packet Indications: Constipation, unspecified constipation type Take 17 g by mouth Daily as needed (constipation) 30 packet 01/07/2025 02/06/2025 Active Start: g, Oral, DAILY, First dose on Sat08/16/21 at 2030, Until Discontinuedpotassium chloride 10 meq extended release oral tablet (1 source)Start: 01-27-2025 End: 86-59-4529mffd 1 tablet by mouth once dailypotassium chloride CR (Klor-Con) 10 mEq ER tablet Indications: Localized edema Take 1 tablet (10 mEq) by mouth once daily. Do not crush, chew, or split. 14 tablet 01/27/2025 01/27/2026 Active tiZANidine 4 mg oral tablet (20 sources)Central alpha-2 Adrenergic AgonistStart: 40-52-7635bgSHDvhbms (Zanaflex) 4 mg tablet 1 tablet (4 mg) as needed at bedtime. 04/18/2023 Active Start: 09-67-5374vlfr 1 tablet by mouth twice daily as neededStart: 04-26-2021 End: 57-54-2071qbxu 1 tablet by mouth once daily at [...] (Original)acetaminophen 500 mg oral tablet (1 source)Start: 22-49-3240doso 1 dose by mouth three times daily1,000 mg, Oral, EVERY 8 HOURS SCHEDULED (3 times per day), First dose on Sat08/16/21 at 2200, UntilDiscontinued Maximum dose of acetaminophen is 4000 mg from all sources in 24 hours.acetaminophen 325 mg / HYDROcodone bitartrate 5 mg oral tablet (14 sources)Opioid AgonistStart: 05-10-2021 End: 74-23-5240tjiq 1 tablet by mouth every six hours as needed for pain Hydrocodone-Acetaminophen 5-325 mg tablet Discontinued 1 TAB PO Q6H as needed for pain 30 May 10, 2021 September 19, 2021 11:42amaspirin 81 mg delayed release oral tablet (20 sources)Platelet Aggregation Inhibitor, Nonsteroidal Anti-inflammatory Drug Start: 04-26-2021 End: 70-74-4915fgpd 1 tablet by mouth once daily in the morningAspirin 81 mg Tablet,Delayed Release (Dr/Ec) Discontinued 81 MG PO Every morning April 2621:00am September 17, 2023 11:09amtake 1 tablet by mouth once dailyaspirin 81 MG chewable tablet Take 81 mg by mouth daily 0 Activecarvedilol 3.125 mg oral tablet (20 sources)alpha-Adrenergic Yadira, beta-Adrenergic BlockerStart: 10-23-2023 End: 64-44-1452wyig 1 tablet by mouth twice daily at mealtimeCarvedilol 3.125 mg tablet Discontinued 3.125 MG PO Twice daily 60 30 April 30, 2024 2:13pm 2024 1:37pm must administer with a meal/foodferrous sulfate 325 mg oral tablet (2 sources) End: 16-18-8504hovg 1 tablet by mouth at mealtimeferrous sulfate 325 (65 Fe) MG tablet Take 325 mg by mouth in the morning. Take with meals. 10/20/2024 Discontinued (Other)meclizine hydrochloride 25 mg oral tablet (10 sources)AntiemeticStart: 09-17-2023 End: 39-18-6261gcid 1 tablet by mouth once dailyMeclizine 25 mg tablet Discontinued 25 MG PO Daily September 17, 2023 12:00am October 09, 2023 8:46amtake 1 tablet by mouth every twenty-four hoursMeclizine HCl 25 MG 1 tablet Orally once a day Activepantoprazole 40 mg delayed release oral tablet (1 source)Proton Pump InhibitorStart: 37-50-8952ibdd 40 mg by mouth once daily before tuokohhcv70 mg, Oral, DAILY BEFORE BREAKFAST, First dose on Sat08/17/21 at 0730, Until Discontinued Do not crush or break. Substituted for Omeprazole (PRILOSEC).1000 ml sodium chloride 9 mg/ml injection (4 sources)Start: 08-16-2021 End: .9 % sodium chloride infusionStart: 22-88-4872CuwccZYIwtx, at 5- 250 mL/hr, PRN, if patient [...] or less into rate field of order.Start: 34-44-0377jfum 1 dose intravenously twice daily5-40 mL, IntraVENous, [...] Midline or Central Line = 20 mL/lumenStart: 26-38-8514gppg 5-40 mL intravenously once as needed5-40 mL, [...] 20 mL/lumentherapeutic multivitamin-minerals 1 tablet (1 source)Start: 75-08-0344fian 1 tablet by mouth once daily1 tablet, Oral, DAILY, First dose on Sat08/16/21 at 2030, Until Discontinued Problems Active Problems Problem ClassificationProblemDateDocumented DateEpisodic/Chronic Administrative/social admission (2 sources)Patient encounter status; Translations: [Other specified counseling] 11-36-1549JanwafweSsgjufi disorders (20 sources)Anxiety; Translations: [Other specified anxiety disorders]Onset: 656723-32-0371NijdkvpTklxed; peripheral; and visceral artery aneurysms (20 sources)Thoracic aortic aneurysm, without rupture; Translations: [Dilatation of aorta]Onset: 07-26-6452CugerpzWblmjhp dysrhythmias (20 sources)Multiple premature ventricular complexes; Translations: [Ventricular premature depolarization]Onset: 657760-91-7192UjdxfcaQxtkladwbbx and hemorrhagic disorders (1 source)Thrombocytopenia, unspecified; Translations: [Thrombocytopenia, unspecified]Onset: 02-72-6195DalzhgvRlpikjauik disorders (2 sources)Sinus node -09-4876IvgbfukSuavttwbvh heart failure; nonhypertensive (3 sources)Congestive heart failure; Translations: [Unspecified diastolic (congestive) heart failure]Onset: 295981-94-7847HudgejcCuosncqt atherosclerosis and other heart disease (20 sources)Old myocardial infarction; Translations: [Coronary arteriosclerosis] Onset: 390348-43-7864IrpsfspNvefzjum atherosclerosis and other heart disease (3 sources)Presence of coronary angioplasty implant and graft; Translations: [PRESENCE COR ANGPLSTY IMPLANT AND GRAFT]Onset: 35-29-2842JkmwwphuRknepospqc and other anemia (20 sources)Acquired pancytopenia; Translations: [Other pancytopenia]Onset: 664837-73-4762AqeujrrBqyyhcqsss and other anemia (4 sources)Other pancytopenia; Translations: [Other pancytopenia]09-28-2022 ChronicDeficiency and other anemia (2 sources)Iron deficiency anemia, unspecified; Translations: [Iron deficiency anemia, unspecified]16-59-8627RtcmwzxbMauahxwcy of lipid metabolism (20 sources)Hypertriglyceridemia; 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]Onset: 837489-54-3087MixxodqCxjvpdmmlwbbxg and diverticulitis (20 sources)Diverticulosis of colon; Translations: [Diverticulosis of large intestine without perforation or abscess without bleeding]Onset: 08-13-2022 39-52-5652BfvflohY Codes: Struck by; against (1 source)Striking against or struck by other objects, initial encounter; Translations: [STRIKING AGNST/STRUCK OTH OBJ INIT]Onset: 37-84-1655Uxcdcmfk Esophageal disorders (20 sources)Gastroesophageal reflux disease; Translations: [Gastro-esophageal reflux disease without esophagitis]Onset: 893150-70-1180HwiqvymLceeaoypx hypertension (20 sources)Benign essential hypertension; Translations: [Essential (primary) hypertension]Onset: 347145-18-8240MitomrcUwfptmurh (20 sources)Nonalcoholic steatohepatitis; Translations: [Nonalcoholic steatohepatitis (PLASCENCIA)]Onset: 09-13-2021 Resolved: 66-71-4990KiqibdeDubuoemcpedm with complications and secondary hypertension (20 sources)Hypertensive heart AND chronic kidney disease with congestive heart failure; Translations: [Hypertensive heart and chronic kidney disease with heart failure and stage 1 through stage 4 chronic kidneydisease, or unspecified chronic kidney disease]Onset: 344431-45-8754XrnbxdkZjkbcyocredkd and screening for infectious disease (2 sources)Needs influenza immunization; Translations: [Encounter for immunization]69-67-5692BnwivjfzXedjftxcscmo injury (5 sources)Subarachnoid hemorrhage due to traumatic injury; Translations: [Traumatic subarachnoid hemorrhage without loss of consciousness, initial encounter]Onset: 60-69-6412VafrbqzwDevoexfspouax mental health disorders (20 sources)Chronic insomnia; Translations: [Psychophysiologic insomnia]Onset: 975309-69-1538ExsgubqSldbrjuluue deficiencies (20 sources)Vitamin D deficiency; Translations: [Vitamin D deficiency, unspecified]Onset: 410087-95-1843XzpmsqrJyaz wounds of head; neck; and trunk (3 sources)Facial laceration ; Translations: [Laceration without foreign body of other part of head, initial encounter]Onset: 34-27-1038AbeqphaaUvyew aftercare (1 source)senior care (current) use of aspirin; Translations: [CEILING INSTALLER CURRENT USE OF ASPIRIN]Onset: 35-22-5630BbvjyphjTjuxa aftercare (1 source)senior care (current) use of antithrombotics/antiplatelets; Translations: [CEILING INSTALLER ANTITHROMBOT/ANTIPLATLETS]Onset: 67-01-2686Dppasuer Other aftercare (1 source)Post-discharge follow-up; Translations: [Encounter for follow-up examination after completed treatment for conditions other than malignant neoplasm]52-19-9438JaishzdbQkzfa and ill-defined heart disease (8 sources)Diastolic dysfunction; Translations: [Other ill-defined heart diseases]Onset: 518371-16-2985WkebsolQjzty disorders of stomach and duodenum (6 sources)Vascular ectasia of gastric antrum; Translations: [Angiodysplasia of stomach and duodenum without bleeding]39-77-2026MtcnocbxTzkqr disorders of stomach and duodenum (3 sources)Angiodysplasia of stomach and duodenum without bleeding; Translations: [Angiodysplasia of stomach and duodenum without mention of hemorrhage]Onset: 645475-69-6309QgubppvgImhrr gastrointestinal disorders (1 source)Constipation; Translations: [Constipation, unspecified]01-07-2025 EpisodicOther injuries and conditions due to external causes (3 sources)Unspecified injury of head, initial encounter; Translations: [UNSPECIFIED INJURY HEAD INITIAL ENC]Onset: 36-05-3662OefwnrlsBobir liver diseases (7 sources)Cirrhosis of liver; Translations: [Other cirrhosis of liver]Onset: 588122-44-3094KesckggSixqu liver diseases (16 sources)Unspecified cirrhosis of liver; Translations: [Cirrhotic]Onset: 07-11-2021 Resolved: 04-47-9000MjxchcsOwwkg liver diseases (2 sources)Non-alcoholic fatty liver; Translations: [Fatty (change of) liver, not elsewhere classified]ChronicOther liver diseases (20 sources)Fatty (change of) liver, not elsewhere classified; Translations: [Other chronic nonalcoholic liver disease]Onset: 09-13-2021 Resolved: 46-60-5101DtsyakyRfcvd liver diseases (1 source)Other cirrhosis of liverOnset: 09-13-2021 Resolved: 40-63-8975AnpyuhjSglat liver diseases (11 sources)Cirrhosis - non-alcoholic; Translations: [Unspecified cirrhosis of liver]80-22-2985YpbzecoFrqqf lower respiratory disease (1 source)Cough; Translations: [Cough, unspecified type]77-77-3746CjlmniidNwnvy nervous system disorders (20 sources)Chronic pain; Translations: [Other chronic pain]Onset: 08-13-2022 05-90-5155QsyryroQshgf nutritional; endocrine; and metabolic disorders (6 sources)Body mass index 30+ - obesity; Translations: [Body mass index (BMI) 30.0-30.9, adult]Onset: 737187-81-8297OerupfgRoruz nutritional; endocrine; and metabolic disorders (2 sources)Body mass index (BMI) 31.0-31.9, adult; Translations: [Body mass index (BMI) 31.0-31.9, adult]Onset: 35-36-0628NsawkxnWcapc nutritional; endocrine; and metabolic disorders (2 sources)Body mass index (BMI) 30.0-30.9, adult; Translations: [Body mass index (BMI) 30.0-30.9, adult]Onset: 79-22-8064DvoomttOapwulewb heart disease (8 sources)Secondary pulmonary hypertension; Translations: [Other secondary pulmonary hypertension]Onset: 366556-08-6116JuivnrrQwfirrrc codes; unclassified (6 sources)Localized edema; Translations: [Localized edema]Onset: 01-27-2025 10-75-7941SusulappUgwfwodn codes; unclassified (1 source)Localized edema; Translations: [Localized edema]Onset: 01-27-2025 EpisodicScreening and history of mental health and substance abuse codes (20 sources)Personal history of nicotine dependence; Translations: [Ex-cigarette smoker]Onset: 814920-11-1487AfewtfzlEbmheazyoor injury; contusion (1 source)Contusion of other part of head, initial encounter; Translations: [CONTUS OTH PRT HEAD INITIAL ENCNTR]Onset: 74-47-4376GokohqpcXraakvm (1 source)Syncope and collapse; Translations: [Syncope and collapse]Onset: 36-39-4691QxwhkmfjDvjdajb disorders (20 sources)Hypothyroidism, unspecified; Translations: [Acquired hypothyroidism] Onset: 921621-95-1219RrvfppgXoyhtarlwfpf (4 sources)CONTACT W/AND (SUSP) EXPOS COVID-19; Translations: [CONTACT W/AND (SUSP) EXPOS COVID-19]Onset: 12-32-4862Qpshngdshcib (1 source)COUGH, UNSPECIFIED; Translations: [COUGH, UNSPECIFIED]Onset: 04-10-2021 Past or Other Problems Problem ClassificationProblemDateDocumented DateEpisodic/ChronicAbdominal pain (20 sources)Right upper quadrant pain; Translations: [Right upper quadrant pain] Onset: 02-07-2021 Resolved: 664766-92-4766KpkurtjhRlrer cerebrovascular disease (20 sources)Hemorrhage into subarachnoid space of neuraxis; Translations: [Nontraumatic subarachnoid hemorrhage, unspecified]Onset: 08-16-2021 Resolved: 57-15-0618LgejpgnHccqddq tract disease (20 sources)Calculus of gallbladder without cholecystitis without obstruction; Translations: [Calculus of gallbladder with cholecystitis]Onset: 02-07-2021 Resolved: 130784-96-2300PvybzdsxCxrfszn dysrhythmias (14 sources)Bradycardia; Translations: [Bradycardia, unspecified]Onset: 670534-68-6092CrrliduoUvnsqbvmcr and other anemia (20 sources)Iron deficiency anemia; Translations: [Iron deficiency anemia, unspecified]Onset: 350023-77-6888TbgdfvqpLskf disorders (17 sources)Mood disordersOnset: 10-21-2023 Resolved: 066117-78-2326Sbkhdbv (20 sources)Onychomycosis due to dermatophyte ; Translations: [Tinea unguium] Onset: 08-13-2022 Resolved: 333224-94-3303TytluxoyAdpoc acquired deformities (20 sources)Spondylolysis of cervical spine; Translations: [Spondylolysis, cervical region]Onset: 995723-64-7901XnqhnzmfEpkwg aftercare (1 source)Other director long term care (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 therapy; Translations: [OTH CEILING INSTALLER CURRENT DRUG THERAPY]Onset: 55-23-0670AefyacfoSwmpc connective tissue disease (20 sources)Cramp; Translations: [Cramp and spasm]Onset: EpisodicOther disorders of stomach and duodenum (20 sources)Indigestion; Translations: [Functional dyspepsia]Onset: 08-13-2022 Resolved: 271088-05-3929UkpnipvbTozlu lower respiratory disease (3 sources)Pleurodynia; Translations: [PLEURODYNIA]Onset: 84-99-6650Lhdpprou Other nervous system disorders (20 sources)Unsteady when standing; Translations: [Unsteadiness on feet]Onset: 335746-26-0819BaablydjQbhry nutritional; endocrine; and metabolic disorders (13 sources)Overweight in adulthood with body mass index of 25 or more but less than 30; Translations: [Body mass index (BMI) 29.0-29.9, adult]Onset: 01-01-2024 49-62-0982WburtcbdImcku screening for suspected conditions (not mental disorders or infectious disease) (20 sources)Liver function tests abnormal; Translations: [Other specified abnormal findings of blood chemistry]Onset: 345297-24-6840Znfoffzu Unclassified (1 source)CONTACT W/AND (SUSP) EXPOS COVID-19; Translations: [CONTACT W/AND (SUSP) EXPOS COVID-19]Onset: 89-12-1527Wjvuxwwmkxsw (5 sources)Onset: 06-20-2023 Resolved: Results Test NameValueInterpretationReference RangeFacilityXR chest 2V*on 16-41-3086QU chest 2V*[facility] [place] [address] XRay Report Signed Patient: Pankaj Payne MR#: [id number] : 1945 Acct:[id number] Age/Sex: 79 / M ADM Date: 01/15/25 Loc: Room: [address] [place] [address] Type: REG [facility] Attending Dr: Leisa Jennings MD Copies to: [...] Sutton M.D. 01/16/2025 8:35 AM Dictation Location: [facility] Transcribed By: [facility] 01/16/25 0835 Dictated By: Markus Sutton DO 01/16/25 0833 Signed By: 01/16/25 0835[facility] HospitalBasic Metabolic Panelon 50-56-8759Rplcy gap [Moles/Vol]6.3 mmol/LNormal6.0-15.0The [facility] Physician GroupComment on above:Performed By: #### LIPID, PSAS, TSH3 wRFLX, CMP, PT #### [place] [address] [place] #### AFPTM #### [facility] ,Calcium [Mass/Vol]8.2 mg/dLLow8.6-10.3The [facility] Physician GroupComment on above:Performed By: #### LIPID, PSAS, TSH3 wRFLX, CMP, PT #### [place] [address] [place] #### AFPTM #### [facility] ,Chloride [Moles/Vol]112 mmol/RDwyk14-791Ahf [facility] Physician GroupComment on above:Performed By: #### LIPID, PSAS, TSH3 wRFLX, CMP, PT #### [place] [address] [place] #### AFPTM #### [facility] ,CO2 [Moles/Vol]27.6 mmol/UYvnlxu93.0-31.0The [facility] Physician GroupComment on above:Performed By: #### LIPID, PSAS, TSH3 wRFLX, CMP, PT #### [place] [address] [place] #### AFPTM #### [facility] ,Creatinine [Mass/Vol]0.69 mg/dLLow0.70-1.30The [facility]ician [facility]Comment on above:Performed By: #### LIPID, PSAS, TSH3 wRFLX, CMP, PT #### [place] [address] [place] #### AFPTM #### [facility] ,Creatinine Clr Calc Kwwcqqyr68.70NormalThe [facility] Physician GroupComment on above:Result Comment: PERFORMED BY: [place] [address] PATHOLOGIST [employer] SE[employer]ER GUERA MARROQUIN M.D.Performed By: #### LIPID, PSAS, TSH3 wRFLX, CMP, PT #### [address] #### AFPTM #### [facility] ,GFR/1.73 sq M.predicted MDRD (S/P/Bld) [Vol rate/Area]mL/min/{1.73_m2}NormalThe [facility] Physician [facility] HospitalComment on above:Performed By: #### LIPID, PSAS, TSH3 wRFLX, CMP, PT #### [address] #### AFPTM #### [facility] ,Glucose [Mass/Vol]99 mg/oYRtmhlm41-659Vdy [facility] Physician [facility] HospitalComment on above:Result Comment: Random Glucose Reference Range is dependent on time and content of last meal. Glucose of more than 200 mg/dL in a nonstressed, ambulatory subject supports the diagnosis of Diabetes Mellitus. ADA recommended reference rangePerformed By: #### LIPID, PSAS, TSH3 wRFLX, CMP, PT #### [place] [address] [place] #### AFPTM #### [facility] ,Potassium [Moles/Vol]3.9 mmol/LNormal3.5-5.1[facility] Comment on above:Performed By: #### LIPID, PSAS, TSH3 wRFLX, CMP, PT #### [address] #### AFPTM #### [facility] ,Sodium [Moles/Vol]142 mmol/IYgupuq225-722Ctc [facility] Physician GroupComment on above:Performed By: #### LIPID, PSAS, TSH3 wRFLX, CMP, PT #### [address] #### AFPTM #### [facility] ,Urea nitrogen [Mass/Vol]16 mg/dLNormal7-e [facility] Physician GroupComment on above:Performed By: #### LIPID, PSAS, TSH3 wRFLX, CMP, PT #### [address] #### AFPTM #### [facility] ,Complete Blood Count Auto Diffon 73-98-9914Yvzfndahi (Bld) [#/Vol]0.1 10*3/uL Normal0.0-0.2The [facility] Physician GroupComment on above:Result Comment: PERFORMED BY: [place] [address] PATHOLOGIST TICKET SELLER GUERA MARROQUIN M.D.Performed By: #### LIPID, PSAS, TSH3 wRFLX, CMP, PT #### [address] #### AFPTM #### [facility] ,Basophils/100 WBC (Bld)1.2 %Normal.[facility] Physician GroupComment on above:Performed By: #### LIPID, PSAS, TSH3 wRFLX, CMP, PT #### [place] [address] [place] #### AFPTM #### [facility] ,Eosinophils (Bld) [#/Vol]0.1 10*3/uLNormal0.0-0.45[facility] Comment on above:Performed By: #### LIPID, PSAS, TSH3 wRFLX, CMP, PT #### [place] [address] [place] #### AFPTM #### [facility] ,Eosinophils/100 WBC (Bld)1.5 %Normal.[facility] Physician GroupComment on above:Performed By: #### LIPID, PSAS, TSH3 wRFLX, CMP, PT #### [place] [address] [place] #### AFPTM #### [facility] ,Erythrocyte distribution width (RBC) [Ratio]21.0 %High12.0-14.8The [facility] Physician GroupComment on above:Performed By: #### LIPID, PSAS, TSH3 wRFLX, CMP, PT #### [place] [address] [place] #### AFPTM #### [facility] ,Hematocrit (Bld) [Volume fraction]37.5 %Low38.8-50.0The [facility] Physician GroupComment on above:Performed By: #### LIPID, PSAS, TSH3 wRFLX, CMP, PT #### [address] #### AFPTM #### [facility] ,Hemoglobin (Bld) [Mass/Vol]12.4 g/dLLow13.0-17.0[facility] Comment on above:Performed By: #### LIPID, PSAS, TSH3 wRFLX, CMP, PT #### [place] [address] [place] #### AFPTM #### [facility] ,Lymphocytes (Bld) [#/Vol]0.5 10*3/uLLow1.00-4.8[facility] Comment on above:Performed By: #### LIPID, PSAS, TSH3 wRFLX, CMP, PT #### [place] [address] [place] #### AFPTM #### [facility] ,Lymphocytes/100 WBC (Bld)11.5 %Normal.The [facility] Physician GroupComment on above:Performed By: #### LIPID, PSAS, TSH3 wRFLX, CMP, PT #### [place] [address] [place] #### AFPTM #### [facility] ,MCH (RBC) [Entitic mass]30.9 ktHvhece76.5-35.2[facility] Comment on above:Performed By: #### LIPID, PSAS, TSH3 wRFLX, CMP, PT #### [address] #### AFPTM #### [facility] ,MCV (RBC) [Entitic vol]93.7 hRPttkkw06.5-101[facility] Comment on above:Performed By: #### LIPID, PSAS, TSH3 wRFLX, CMP, PT #### [place] [address] [place] #### AFPTM #### [facility] ,Mean Corpuscular HGB Conc33.0 g/rLPfayyw68.5-35.6[facility] Comment on above:Performed By: #### LIPID, PSAS, TSH3 wRFLX, CMP, PT #### [place] [address] [place] #### AFPTM #### [facility] ,Monocytes (Bld) [#/Vol]0.3 10*3/uLNormal0.0-0.8[facility] Comment on above:Performed By: #### LIPID, PSAS, TSH3 wRFLX, CMP, PT #### [place] [address] [place] #### AFPTM #### [facility] ,Monocytes/100 WBC (Bld)7.7 %Normal.The [facility] Physician GroupComment on above:Performed By: #### LIPID, PSAS, TSH3 wRFLX, CMP, PT #### [place] [address] [place] #### AFPTM #### [facility] ,Neutrophils (Bld) [#/Vol]3.5 10*3/uLNormal1.8-7.7[facility] Comment on above:Performed By: #### LIPID, PSAS, TSH3 wRFLX, CMP, PT #### [facility] [address] [place] [address] [place] #### AFPTM #### [facility] ,Neutrophils/100 WBC (Bld)78.1 %Normal.The [facility] Physician GroupComment on above:Performed By: #### LIPID, PSAS, TSH3 wRFLX, CMP, PT #### [place] [address] [place] #### AFPTM #### [facility] ,NRBC%0.0 /100{WBC}Normal0-0.5The [facility] Physician GroupComment on above: Performed By: #### LIPID, PSAS, TSH3 wRFLX, CMP, PT #### [facility] [address] [place] [address] [place] #### AFPTM #### [facility] ,Platelet mean volume (Bld) [Entitic vol]8.6 fLNormal6.6-10.1The [facility] Physician GroupComment on above:Performed By: #### LIPID, PSAS, TSH3 wRFLX, CMP, PT #### [facility] [address] [place] [address] [place] #### AFPTM #### [facility] ,Platelets (Bld) [#/Vol]88 10*3/hJMik000-574Fak [facility] Physician GroupComment on above:Performed By: #### LIPID, PSAS, TSH3 wRFLX, CMP, PT #### [facility] [address] [place] [address] [place] #### AFPTM #### [facility] ,RBC (Bld) [#/Vol]4.00 10*6/uLNormal3.90-5.60[facility] Comment on above:Performed By: #### LIPID, PSAS, TSH3 wRFLX, CMP, PT #### [facility] [address] [place] [address] #### AFPTM #### [facility] ,WBC (Bld) [#/Vol]4.5 10*3/uLNormal4.1-10.5The [facility] Physician GroupComment on above:Performed By: #### LIPID, PSAS, TSH3 wRFLX, CMP, PT #### [facility] [address] [place] [address] [place] #### AFPTM #### [facility] ,White Blood Count4.5 [CFU]/mLNormal4.1-10.5The [facility] Physician GroupComment on above:Performed By: #### LIPID, PSAS, TSH3 wRFLX, CMP, PT #### [address] #### AFPTM #### [facility] ,ECG 12 lead ECGon 40-73-8300OIC 12 lead ECGBARNEY CHILDREN'S [place] [address] Electrocardiograph Report Signed Patient: Pankaj Payne MR#: [id number] : 1945 Acct:[id number] Age/Sex: 79 / M ADM Date: 01/15/25 Loc: 4 Room: 0Y8466-2 Type: [facility] Attending Dr: Leisa Jennings MD Ordering [...] previous ECGs available Confirmed by CHAUNCEY CROFT [facility], MICHAELA ([id number]) on 01/16/2025 11:39:21 AM Referred By: Electronically Signed By: MICHAELA GROSSMAN MD [facility] Transcribed By: MUS Signed By Michaela Grossman MD, [facility] 01/16/25 1139NormDeSoto [facility] Physician GroupPartial Thromboplastin Timeon 84-05-1437qITT Coag (Bld) [Time]32.3 mKnalwo90.1-36.5The [facility] Physician [facility] HospitalComment on above:Result Comment: A hematocrit value greater than 55% may lead to inaccurate results in coagulation testing. Patients having hematocrit values >55% require a special collection tube for coagulation studies. Please contact the laboratory at [phone] for redraw instructions. PERFORMED BY: [place] [address] PATHOLOGIST TICKET SELLER GUERA MARROQUIN M.D.Performed By: #### LIPID, PSAS, TSH3 wRFLX, CMP, PT #### [facility] [address] [place] [address] #### AFPTM #### [facility] ,Prothrombin Time INRon 90-94-3516LNM Coag (PPP) [Relative time]1.2 {INR}Normal [facility] Physician [facility] Springs HospitalComment on above:Result Comment: INR Therapeutic Range [...] LIPID, PSAS, TSH3 wRFLX, CMP, PT #### [address] #### AFPTM #### [facility] ,PT Coag (PPP) [Time]13.7 sHigh9.0-12.9The [facility] Physician GroupComment on above:Result Comment: A hematocrit value greater than 55% may lead to inaccurate results in coagulation testing. Patients having hematocrit values >55% require a special collection tube for coagulation studies. Please contact the laboratory at [phone] for redraw instructions.Performed By: #### LIPID, PSAS, TSH3 wRFLX, CMP, PT #### [address] #### AFPTM #### [facility] ,Urine Cultureon 87-75-5419Xgsxxqbq identified Cx Nom (U)No Growth 2 Days PERFORMED BY: [place] [address] PATHOLOGIST TICKET SELLER GUERA MARROQUIN M.D.NormalThe [facility] Physician [facility] HospitalComment on above: Performed By: #### LIPID, PSAS, TSH3 wRFLX, CMP, PT #### [address] #### AFPTM #### [facility] ,ALL CBC WITH AUTO DIFFon 33-00-7063CFPWGBZNE ABSOLUTE ZKUO2IRBW Healthcare Basophils/100 WBC (Bld)0.6 %0.2 - 2.0 %NOMS HealthcareEosinophils/100 WBC (Bld) 3.2 %0.9 - 7.0 %[facility]OMS HealthcareErythrocyte distribution width (RBC) [Ratio]14.3 %11.0 - 15.0 %[facility] HealthcareHematocrit (Bld) [Volume fraction]33.2 %Low42.0 - 54.0 %[facility] HealthcareHemoglobin (Bld) [Mass/Vol]10.8 g/dLLow14.0 - 18.0 g/dLNOUniversity of Missouri Health CareIMMATURE GRANULOCYTES ABS AUTO0.01NOUniversity of Missouri Health CareImmature granulocytes/100 WBC (Bld)0.3 %0.0 - 0.5 %[facility] HospitalInterpretation and review of laboratory resultsAbnormalNOAZ HealthcareLYMPHOCYTES ABSOLUTE AUTO0.6 LowNOAZ HealthcareLymphocytes/100 WBC (Bld)19.4 %Low20.5 - 60.0 %[facility] MCH (RBC) [Entitic mass]31.5 pg25.9 - 34.0 pgNOUniversity of Missouri Health CareMCHC (RBC) [Mass/Vol]32.5 g/dL29.9 - 35.2 g/dLNOUniversity of Missouri Health CareMCV (RBC) [Entitic vol]96.8 fL High80.0 - 94.0 fLLee's Summit HospitalMONOCYTES ABSOLUTE AUTO0.2LowNChristian Hospital Monocytes/100 WBC (Bld)7.3 %1.7 - 12.0 %[facility] HospitalNEUTROPHILS ABSOLUTE AUTO 2.2NOMS [facility] Behavioral Medical CenterNeutrophils/100 WBC (Bld)69.2 %43.0 - 75.0 %[facility] Platelet mean volume (Bld) [Entitic vol]11 fL9.5 - 13.5 fLNOUniversity of Missouri Health CareTB EO #0.1NOMS HealthcareTB [id number] of Missouri Health CareTB RBC3.43LowNOUniversity of Missouri Health CareTB WBC3.1LowNChristian HospitalCLINISYNCNCHOCTAW MEMORIAL HOSPITAL – HUGO HealthcareAlanine aminotransferase [Enzymatic activity/volume] in Serum or PlasmaOrdered By: Mick Branch on 08-24-1702KXZ [Catalytic activity/Vol]52 U/LNormal7-52Mart[facility] Ferry HospitalComment on above:Performed By: #### LIPID, PSAS, TSH3 wRFLX, CMP, PT #### [facility] [address] #### AFPTM #### [facility] ,Albumin [Mass/volume] in Serum or Plasma by Bromocresol green (BCG) dye binding methoOrdered By: Mick Branch on 23-53-8760Rpuexkz BCG dye [Mass/Vol]3.1 g/dL Low3.5-5.7FOhioHealth Hardin Memorial HospitalAlkaline phosphatase [Enzymatic activity/volume] in Serum or PlasmaOrdered By: Mick Branch on 61-91-2373JWB [Catalytic activity/Vol]124 U/NHjfz09-659RgcgrwbvvMartins Ferry Hospital Comment on above:Result Comment: PERFORMED BY: [place] [address] PATHOLOGIST TICKET SELLER GUERA MARROQUIN M.D.Performed By: #### LIPID, PSAS, TSH3 wRFLX, CMP, PT #### [address] #### AFPTM #### [facility] ,Aspartate aminotransferase [Enzymatic activity/volume] in Serum or Plasma Ordered By: Mick Branch on 80-34-2060IJL [Catalytic activity/Vol]58 U/LHigh 13-39Mart[facility] Ferry HospitalComment on above:Performed By: #### LIPID, PSAS, TSH3 wRFLX, CMP, PT #### [place] [address] [place] #### AFPTM #### [facility] ,Basophils [#/volume] in Blood by Automated countOrdered By: Mick Branch on 21-85-5374Ntjcoqctd (Bld) [#/Vol]0.0 10*3/uLNormal0.0-0.2FOhioHealth Hardin Memorial HospitalComment on above:Result Comment: PERFORMED BY: [place] [address] PATHOLOGIST TICKET SELLER GUERA MARROQUIN M.D.Performed By: #### PT, CMP, CBC #### [place] [address] USABasophils/100 leukocytes in Blood by Automated count Ordered By: Mick Branch on 62-04-2279Cqorgfzqw/100 WBC (Bld)0.8 %Normal. [facility] Ferry HospitalComment on above:Performed By: #### PT, CMP, CBC #### [place] [address] USABilirubin.total [Mass/volume] in Serum or PlasmaOrdered By: Mick Branch on 99-59-2383Fptrfsook [Mass/Vol]0.9 mg/dLNormal0.3-1.0 [facility]erry HospitalComment on above:Performed By: #### LIPID, PSAS, TSH3 wRFLX, CMP, PT #### [facility] [address] [place] [address] [place] #### AFPTM #### [facility] ,Calcium [Mass/volume] in Serum or PlasmaOrdered By: Mick Branch on 11-02-2024 Calcium [Mass/Vol]7.9 mg/dLLow8.6-10.3FOhioHealth Hardin Memorial HospitalComment on above:Performed By: #### LIPID, PSAS, TSH3 wRFLX, CMP, PT #### [facility] [address] [place] [address] [place] #### AFPTM #### [facility] ,Carbon dioxide, total [Moles/volume] in Serum or PlasmaOrdered By: Mick Branch on 23-78-9584ZR2 [Moles/Vol]29.1 mmol/MLuqasc17.0-31.0[facility] Ferry HospitalComment on above:Performed By: #### LIPID, PSAS, TSH3 wRFLX, CMP, PT #### [facility] [address] [place] [address] [place] #### AFPTM #### [facility] ,Chloride [Moles/volume] in Serum or PlasmaOrdered By: Mick Branch on 34-86-4790Uhjjwjmj [Moles/Vol]110 mmol/ZHpyf63-090VwcjgsnzvMartins Ferry HospitalComment on above:Performed By: #### LIPID, PSAS, TSH3 wRFLX, CMP, PT #### [facility] [address] [place] [address] [place] #### AFPTM #### [facility] ,Complete Blood Count Auto Diffon 51-54-0713Fdlg Corpuscular HGB Conc33.5 g/dL Wtrgwb35.5-35.6The [facility] Physician GroupComment on above:Performed By: #### PT, CMP, CBC #### [facility] [address] [place] [address] USANRBC%0.0 /100{WBC}Normal0-0.5The [facility]ician [facility] Comment on above:Performed By: #### PT, CMP, CBC #### [facility] [address] [place] [address] USAWhite Blood Count3.0 [CFU]/mLLow4.1-10.5The [facility] Physician [facility] Springs HospitalComment on above:Performed By: #### PT, CMP, CBC #### [facility] [address] [place] [address] USAComprehensive Metabolic Panelon 62-99-3467Xdslmov [Mass/Vol]3.1 g/dLLow3.5-5.7The [facility] Physician [facility] HospitalComment on above: Performed By: #### LIPID, PSAS, TSH3 wRFLX, CMP, PT #### [facility] [address] [place] [address] [place] #### AFPTM #### [facility] ,GFR/1.73 sq M.predicted MDRD (S/P/Bld) [Vol rate/Area]mL/min/{1.73_m2}NormalThe [facility] Physician [facility] Springs HospitalComment on above:Performed By: #### LIPID, PSAS, TSH3 wRFLX, CMP, PT #### [facility] [address] [place] [address] [place] #### AFPTM #### [facility] ,Creatinine [Mass/volume] in Serum or PlasmaOrdered By: Mick Branch on 74-12-4523Dvvnnpszvh [Mass/Vol]0.71 mg/dLNormal0.70-1.30[facility] Ferry HospitalComment on above:Performed By: #### LIPID, PSAS, TSH3 wRFLX, CMP, PT #### [facility] [address] [place] [address] [place] #### AFPTM #### [facility] ,Eosinophils [#/volume] in Blood by Automated countOrdered By: Mick Branch on 50-00-8671Zshhlorhrwc (Bld) [#/Vol]0.1 10*3/uLNormal0.0-0.45[facility] Ferry HospitalComment on above:Performed By: #### PT, CMP, CBC #### [facility] [address] [place] [address] USAEosinophils/100 leukocytes in Blood by Automated count Ordered By: Mick Branch on 69-69-1129Tuboelxdgem/100 WBC (Bld)1.8 %Normal. [facility] Ferry HospitalComment on above:Performed By: #### PT, CMP, CBC #### [place] [address] USAErythrocyte distribution width [Ratio] by Automated count Ordered By: Mick Branch on 22-15-0919Hpikvvhqrck distribution width (RBC) [Ratio]16.4 %High12.0-14.8[facility] Ferry HospitalComment on above: Performed By: #### PT, CMP, CBC #### [place] [address] USAErythrocytes [#/volume] in Blood by Automated countOrdered By: Mick Branch on 24-90-7119JIF (Bld) [#/Vol]3.58 10*6/uLLow3.90-5.60 [facility]erry HospitalComment on above:Performed By: #### PT, CMP, CBC #### [facility] [address] [place], [place] [id number] USAGlucose [Mass/volume] in Serum or PlasmaOrdered By: Mick Branch on 26-06-1354Xynwlkb [Mass/Vol]120 mg/nKOzqm77-367MjhwwjlmrMartins Ferry HospitalComment on above:ADA recommended reference rangeRandom Glucose Reference [...] TSH3 wRFLX, CMP, PT #### [facility] [address] [place] [address] [place] #### AFPTM #### [facility] ,Hematocrit [Volume Fraction] of Blood by Automated countOrdered By: Mick Branch on 26-76-7167Tzwjyzdbjk (Bld) [Volume fraction]34.1 %Low38.8-50.0[facility] Ferry HospitalComment on above:Performed By: #### PT, CMP, CBC #### [place] [address] USAHemoglobin [Mass/volume] in BloodOrdered By: Mick Branch on 41-56-3068Kjpsxrrojo (Bld) [Mass/Vol]11.4 g/dLLow13.0-17.0[facility] Ferry HospitalComment on above:Performed By: #### PT, CMP, CBC #### [place] [address] USAINR in Platelet poor plasma by Coagulation assayOrdered By: Mick Branch on 44-56-9957NCM Coag (PPP) [Relative time]1.2 {INR}Normal [facility] Ferry HospitalComment on above:INR Therapeutic Range A) Pre- and [...] heart valves: 3 - 4.5 PERFORMED BY: [place] [address] PATHOLOGIST TICKET SELLER GUERA MARROQUIN M.D.Performed By: #### LIPID, PSAS, TSH3 wRFLX, CMP, PT #### [facility] [address] [place] [address] [place] #### AFPTM #### [facility] ,Leukocytes [#/volume] corrected for nucleated erythrocytes in Blood by Automated counOrdered By: Mick Branch on 21-24-4217IKS corrected for nucl RBC Auto (Bld) [#/Vol]3.0 10*3/uLLow4.1-10.5FOhioHealth Hardin Memorial Hospital Leukocytes [#/volume] in Blood by Automated countOrdered By: Mick Branch on 14-03-3177QKQ (Bld) [#/Vol]3.0 10*3/uLLow4.1-10.5FOhioHealth Hardin Memorial HospitalComment on above:Performed By: #### PT, CMP, CBC #### [facility] [address] [place] [address] USALymphocytes [#/volume] in Blood by Automated countOrdered By: Mick Branch on 58-14-4479Yatdsxhpuvj (Bld) [#/Vol]0.5 10*3/uLLow1.00-4.8 [facility] HospitalComment on above:Performed By: #### PT, CMP, CBC #### [facility] [address] [place], [place] [id number] USALymphocytes/100 leukocytes in Blood by Automated count Ordered By: Mick Branch on 52-57-3161Ksotfiajpke/100 WBC (Bld)15.8 %Normal. [facility]erry HospitalComment on above:Performed By: #### PT, CMP, CBC #### [facility] [address] [place], [place] [id number] USAMCH [Entitic mass] by Automated countOrdered By: Mick Branch on 11-70-2665BXG (RBC) [Entitic mass]31.9 hhKvxxwl30.5-35.2FOhioHealth Hardin Memorial HospitalComment on above:Performed By: #### PT, CMP, CBC #### [facility] [address] Auto (RBC) [Mass/Vol]Ordered By: Mick Branch on 86-91-3885SBMM (RBC) [Mass/Vol]33.5 g/dL32.5-35.6FOhioHealth Hardin Memorial HospitalMCV [Entitic volume] by Automated countOrdered By: Mick Branch on 16-52-4805XHP (RBC) [Entitic vol]95.2 vIVildgh56.5-101[facility]erry HospitalComment on above:Performed By: #### PT, CMP, CBC #### [place] [address] USAMonocytes [#/volume] in Blood by Automated countOrdered By: Mick Branch on 79-28-5898Pkrkwzulp (Bld) [#/Vol]0.2 10*3/uLNormal0.0-0.8 [facility] HospitalComment on above:Performed By: #### PT, CMP, CBC #### [facility] [address] [place] [address] USAMonocytes/100 leukocytes in Blood by Automated count Ordered By: Mick Branch on 23-96-8551Cqzvlzxqr/100 WBC (Bld)6.7 %Normal. [facility]erry HospitalComment on above:Performed By: #### PT, CMP, CBC #### [facility] [address] [place] [address] USANeutrophils [#/volume] in Blood by Automated countOrdered By: Mick Branch on 22-84-6327Thyxbfttbje (Bld) [#/Vol]2.2 10*3/uLNormal1.8-7.7 [facility] HospitalComment on above:Performed By: #### PT, CMP, CBC #### [facility] [address] [place] [address] USANeutrophils/100 leukocytes in Blood by Automated count Ordered By: Mick Branch on 32-09-7363Jtumaojvsot/100 WBC (Bld)74.9 %Normal. [facility]erry HospitalComment on above:Performed By: #### PT, CMP, CBC #### [facility] [address] [place] [address] USANo Panel InformationOrdered By: Mick Branch on 50-45-2684Fkawywskg GFR (CKD-EPI)> 60.0 mL/MinMartins Ferry Hospital Pharmacy Creatinine Clearance (ChemN/AFOhioHealth Hardin Memorial HospitalNucleated erythrocytes [Presence] in Blood by Automated countOrdered By: Mick Branch on 84-40-4889Kxkwvjziv RBC Auto Ql (Bld)0.0 /100{WBC}0-0.5FOhioHealth Hardin Memorial HospitalPlatelet mean volume [Entitic volume] in Blood by Automated count Ordered By: Mick Branch on 15-70-4160Suitdrzk mean volume (Bld) [Entitic vol] 8.0 fLNormal6.6-10.1FOhioHealth Hardin Memorial HospitalComment on above:Performed By: #### PT, CMP, CBC #### [facility] [address] [place] [address] USAPlatelets [#/volume] in Blood by Automated countOrdered By: Mick Branch on 71-74-2411Topxikceq (Bld) [#/Vol]102 10*3/hDFmb918-245 [facility] HospitalComment on above:Performed By: #### PT, CMP, CBC #### [facility] [address] [place] [address] USAPotassium [Moles/volume] in Serum or PlasmaOrdered By: Mick Branch on 32-74-6295Bpgydkwhw [Moles/Vol]3.9 mmol/LNormal3.5-5.1FOhioHealth Hardin Memorial HospitalComment on above:Performed By: #### LIPID, PSAS, TSH3 wRFLX, CMP, PT #### [facility] [address] [place] [address] [place] #### AFPTM #### [facility] ,Protein [Mass/volume] in Serum or PlasmaOrdered By: Mick Branch on 11-02-2024 Protein [Mass/Vol]5.8 g/dLLow6.4-8.9[facility]erry HospitalComment on above:Performed By: #### LIPID, PSAS, TSH3 wRFLX, CMP, PT #### [facility] [address] [place] [address] #### AFPTM #### [facility] ,Prothrombin time (PT)Ordered By: Mick Branch on 73-64-4178FF Coag (PPP) [Time]13.5 sHigh9.0-12.9[facility] Ferry HospitalComment on above:A hematocrit value greater than 55% may lead to inaccurate results in coagulation testing. Patientshaving hematocrit values >55% require a special collection tube for coagulation studies. Please contact the laboratory at [phone] for redraw instructions.Result Comment: A hematocrit value greater than 55% may lead to inaccurate results in coagulation testing. Patients having hematocrit values >55% require a special collection tube for coagulation studies. Please contact the laboratory at [phone] for redraw instructions.Performed By: #### LIPID, PSAS, TSH3 wRFLX, CMP, PT #### [address] #### AFPTM #### [facility] ,Serum globulin measurement by calculation (mass/volume)Ordered By: Mick Branch on 01-82-8152Mrdljpby (S) [Mass/Vol]2.7 g/dLNormalMartins Ferry HospitalComment on above:Performed By: #### LIPID, PSAS, TSH3 wRFLX, CMP, PT #### [facility] [address] [place] [address] [place] #### AFPTM #### [facility] ,Serum or plasma albumin/globulin mass ratioOrdered By: Mick Branch on 38-30-2325Knyzxwb/Globulin [Mass ratio]1.1 {ratio}NormalAdams County Regional Medical Center CenterComment on above:Performed By: #### LIPID, PSAS, TSH3 wRFLX, CMP, PT #### [facility] [address] [place] [address] [place] #### AFPTM #### [facility] ,Serum or plasma anion gap determinationOrdered By: Mick Branch on 11-02-2024 Anion gap [Moles/Vol]5.8 mmol/LLow6.0-15.0[facility] Comment on above:Performed By: #### LIPID, PSAS, TSH3 wRFLX, CMP, PT #### [facility] [address] [place] [address] [place] #### AFPTM #### [facility] ,Sodium [Moles/volume] in Serum or PlasmaOrdered By: Mick Branch on 11-02-2024 Sodium [Moles/Vol]141 mmol/NNfralb499-001XeszxgxteMartins Ferry Hospital Comment on above:Performed By: #### LIPID, PSAS, TSH3 wRFLX, CMP, PT #### [facility] [address] [place] [address] [place] #### AFPTM #### [facility] ,Urea nitrogen [Mass/volume] in Serum or PlasmaOrdered By: Mick Branch on 03-89-0920Mgdb nitrogen [Mass/Vol]15 mg/dLNormal7-25Mart[facility] Ferry HospitalComment on above:Performed By: #### LIPID, PSAS, TSH3 wRFLX, CMP, PT #### [facility] [address] [place] [address] [place] #### AFPTM #### [facility] ,ALL BASIC METABOLIC PANELon 60-48-9887Ajiqh gap [Moles/Vol]13.1 mmol/LNOMS HealthcareCalcium [Mass/Vol]9 mg/dL8.5 - 10.1 mg/dLNOMS HealthcareChloride [Moles/Vol]111 mmol/LHigh98 - 107 mmol/LNOMS HealthcareCO2 [Moles/Vol]26.2 mmol/L21.0 - 32.0 mmol/LNOMS HealthcareCreatinine [Mass/Vol]0.89 mg/dL0.70 - 1.30 mg/dLNOAZ HealthcareGFR/1.73 sq M.predicted CKD-EPI (S/P/Bld) [Vol rate/Area]>60>=60 mL/min/1.73m 2NCHOCTAW [facility]ORIAL [facility] – HUGO HealthcareGlucose [Mass/Vol]106 mg/dL74 - 106 mg/dLNOAZ HealthcarePotassium [Moles/Vol]4.3 mmol/L3.5 - 5.1 mmol/LNOMS HealthcareSodium [Moles/Vol]146 mmol/CYmwm475 - 145 mmol/LNOMS HealthcareTBH EGFR-NON AF [place] CITIZEN>60>=60 mL/min/1.73m 2[facility] HealthcareUrea nitrogen [Mass/Vol]17 mg/dL7.0 - 18.0 mg/dLNOUniversity of Missouri Health CareUrea nitrogen/Creatinine [Mass ratio]19.1 mg/mgNOUniversity of Missouri Health CareALL LIPID PROFILE (FASTING)on 78-76-3677SNHQ HDL RATIO1.9NOAZ HealthcareComment on above:3.3 - 4.4 LOW RISK 4.4 - 7.1 AVERAGE RISK 7.1 - 11.0 MODERATE RISK >11.0 HIGH RISK Cholesterol [Mass/Vol]113 mg/dLNINF - 200 mg/dLLee's Summit HospitalCholesterol in HDL [Mass/Vol]60 mg/dL40 - 60 mg/dLNOAZ HealthcareComment on above:> or =60 mg/dl - LOW CARDIOVASCULAR RISK <40 mg/dl - HIGH CARDIOVASCULAR RISK Magnesium [Mass/Vol]41.4 mg/dLBLUE MOUNTAIN HOSPITAL HealthcareComment on above:<100 mg/dl OPTIMAL 100-129 mg/dl NEAR OR ABOVE OPTIMAL 130-159 mg/dl BORDERLINE HIGH 160-189 mg/dl HIGH >190 mg/dl VERY HIGH Magnesium [Mass/Vol]11.6 mg/dLLee's Summit HospitalTriglyceride [Mass/Vol]58 mg/dLNINF - 150 mg/dLSSM De[facility] Ever 96-30-2606KQN [Catalytic activity/Vol]51 U/L16 - 63 U/LNSoutheast Missouri HospitalF Porfirio 96-15-6551JLH [Catalytic activity/Vol]46 U/LHigh15 - 37 U/LNChristian HospitalNo Panel Informationon 07-20-1913Pzuuzghrmfrhqo and review of laboratory resultsAbNovant Health Rehabilitation Hospital ALL CBC WITH AUTO DIFFon 22-78-6821Kdtthwrdtdc distribution width (RBC) [Ratio] 13.8 %11.0 - 15.0 %NOMS HealthcareHematocrit (Bld) [Volume fraction]37.5 %Low 42.0 - 54.0 %NOM HealthcareHemoglobin (Bld) [Mass/Vol]12.6 g/dLLow14.0 - 18.0 g/dLBLUE MOUNTAIN HOSPITAL HealthcareInterpretation and review of laboratory resultsAbnormalSamaritan Hospital (RBC) [Entitic mass]31.2 pg25.9 - 34.0 pgSelect Specialty HospitalHC (RBC) [Mass/Vol]33.6 g/dL29.9 - 35.2 g/dLSelect Specialty HospitalV (RBC) [Entitic vol]92.8 fL 80.0 - 94.0 fLLee's Summit HospitalPlatelet mean volume (Bld) [Entitic vol]10.6 fL9.5 - 13.5 fLLee's Summit HospitalTB TRL65MdyLGHBUniversity of Missouri Health CareTB RBC4.04LowLee's Summit Hospital TBH WBC3.3LowLee's Summit HospitalCLINISJamestown Regional Medical Center36on 26-52-968048Dicz patient hasn't been seen since 2022NormalUnim[address] [facility], TxUS abdomen limitedon 92-63-7731XM abdomen limitedBARNEY CHILDR[facility]'S [place] [address] Ultrasound Report Signed Patient: Pankaj Payen MR#: [id number] : 1945 Acct:[id number] Age/Sex: 78 / M ADM Date: 05/21/24 Loc: Room: Type: [facility] Attending Dr: Mick Branch MD Ordering Provider: Mikc Branch MD Date of Service: 05/21/24 US/US [...] Claros Jr., DKitaOKita05/21/2024 10:23 AM Dictation Location: [place] [address] Tech: Lizzy Llanes Transcribed By: USMAN 05/21/24 1023 Dictated By: Kartik Claros Jr, DO 05/21/24 1022 Signed By: 05/21/24 1023[facility] Physician GroupAFP Tumor Marker, Serumon 94-45-9530VRO Tumor Marker, Serum2.5 ng/mLNormal0.0-8.4The [facility] Physician [facility] Springs HospitalComment on above:Result Comment: [facility] Electrochemiluminescence Immunoassay (ECLIA) Values obtained with different assay methods or kits cannot be used interchangeably. Results cannot be interpreted as absolute evidence of the presence or absence of malignant disease. This test is not interpretable in females. Performed at: - [facility] [id number] Pizza Baker: Charlie Klein PhD, Phone: [phone] PERFORMED BY: [place] [address] PATHOLOGIST TICKET SELLER LUCIUS IRELAND M.D.Performed By: #### LIPID, PSAS, TSH3 wRFLX, CMP, PT #### [address] #### AFPTM #### [facility] ,Alanine aminotransferase [Enzymatic activity/volume] in Serum or PlasmaOrdered By: Mick Branch on 73-06-3219QAB [Catalytic activity/Vol]Alanine aminotransferase [Enzymatic activity/volume] in Serum or Plasma[address] [place], [place] [address]Albumin [Mass/volume] in Serum or Plasma by Bromocresol green (BCG) dye binding methoOrdered By: Mick Branch on 34-74-6515Emxgrxa BCG dye [Mass/Vol]Albumin [Mass/volume] in Serum or Plasma by Bromocresol green (BCG) dye binding metho3.5-5.7FOhioHealth Hardin Memorial HospitalAlkaline phosphatase [Enzymatic activity/volume] in Serum or PlasmaOrdered By: Mick Branch on 06-09-2461MKJ [Catalytic activity/Vol]Alkaline phosphatase [Enzymatic activity/volume] in Serum or CpkfbcDisy99-011HbksskemmMartins Ferry Hospital Aspartate aminotransferase [Enzymatic activity/volume] in Serum or PlasmaOrdered By: Mick Branch on 98-12-5955AQW [Catalytic activity/Vol]Aspartate aminotransferase [Enzymatic activity/volume] in Serum or DchokaFscq19-41 [facility]erry HospitalBilirubin.total [Mass/volume] in Serum or PlasmaOrdered By: Mick Branch on 67-21-4434Edxafhtur [Mass/Vol]Bilirubin.total [Mass/volume] in Serum or Plasma0.3-1.0Mart[facility] Ferry HospitalCalcium [Mass/volume] in Serum or PlasmaOrdered By: Mick Branch on 02-68-1324Azxdhvl [Mass/Vol]Calcium [Mass/volume] in Serum or Plasma8.6-10.3FOhioHealth Hardin Memorial HospitalCarbon dioxide, total [Moles/volume] in Serum or PlasmaOrdered By: Mick Branch on 65-45-8001VK9 [Moles/Vol]Carbon dioxide, total [Moles/volume] in Serum or ZxwqmdGphh49.0-31.0[facility]erry HospitalChloride [Moles/volume] in Serum or PlasmaOrdered By: Mick Branch on 05-05-1269Tmbdktgv [Moles/Vol]Chloride [Moles/volume] in Serum or FlddkjDrra72-789KbloetwdvMartins Ferry HospitalCholesterol [Mass/volume] in Serum or PlasmaOrdered By: Mick Branch on 16-88-2692Qbzmmlykuxc [Mass/Vol]Cholesterol [Mass/volume] in Serum or Bsfjjp010-961GfxmwfyxkMartins Ferry HospitalComment on above:Chol less than 200 mg/dl low riskChol 201-239 mg/dl borderline riskChol 240 mg/dl and greater high riskCholesterol in HDL [Mass/volume] in Serum or PlasmaOrdered By: Mick Branch on 54-66-8360Stkptzpekli in HDL [Mass/Vol]Serum or plasma high density lipoprotein (HDL) cholesterol znhhrgltyqb25-64BepmdfyjxMartins Ferry HospitalComment on above:HDL CHOL ATP-III CLASSIFICATION Cardiovascular RiskHDL > or equal to 60 mg/dL LOWHDL < 40 mg/dL HIGHCholesterol in LDL Calc [Mass/Vol] Ordered By: Mick Branch on 30-50-0486Jltgsyoqkle in LDL [Mass/Vol]Cholesterol in LDL [Mass/volume] in Serum or Plasma by calculationMartins Ferry HospitalComment on above:LDL ATP III CLASSIFICATIONLDL less than 100 mg/dL OptimalLDL 100-129 mg/dL Near or above tgbqwlzIXY549-273 mg/dL Borderline highLDL 160-189 mg/dL HighLDL greater than 189 mg/dL Very highCholesterol in VLDL Calc [Mass/Vol]Ordered By: Mick Branch on 52-94-3540Neubfejvikg in VLDL [Mass/Vol]Cholesterol in VLDL [Mass/volume] in Serum or Plasma by calculation [facility] Ferry HospitalComprehensive Metabolic Panelon 04-30-2024 Albumin [Mass/Vol]3.5 g/dLNormal3.5-5.7The [facility] Physician GroupComment on above:Performed By: #### LIPID, PSAS, TSH3 wRFLX, CMP, PT #### [place] [address] [place] #### AFPTM #### [facility] ,Albumin/Globulin [Mass ratio]1.3 {ratio}NormalThe [facility] Comment on above:Performed By: #### LIPID, PSAS, TSH3 wRFLX, CMP, PT #### [facility] [address] [place] [address] [place] #### AFPTM #### [facility] ,ALP [Catalytic activity/Vol]122 U/EBtir31-042Nim [facility]ician Group Comment on above:Performed By: #### LIPID, PSAS, TSH3 wRFLX, CMP, PT #### [facility] [address] [place] [address] [place] #### AFPTM #### [facility] ,ALT [Catalytic activity/Vol]40 U/LNormal7-52The [facility] Comment on above:Performed By: #### LIPID, PSAS, TSH3 wRFLX, CMP, PT #### [facility] [address] [place] [address] [place] #### AFPTM #### [facility] ,Anion gap [Moles/Vol]4.9 mmol/LLow6.0-15.0The [facility] Physician GroupComment on above:Performed By: #### LIPID, PSAS, TSH3 wRFLX, CMP, PT #### [facility] [address] [place] [address] [place] #### AFPTM #### [facility] ,AST [Catalytic activity/Vol]46 U/REayf42-99Biu [facility] Physician GroupComment on above:Performed By: #### LIPID, PSAS, TSH3 wRFLX, CMP, PT #### [facility] [address] [place] [address] [place] #### AFPTM #### [facility] ,Bilirubin [Mass/Vol]0.7 mg/dLNormal0.3-1.0The [facility] Physician GroupComment on above:Performed By: #### LIPID, PSAS, TSH3 wRFLX, CMP, PT #### [facility] [address] [place] [address] [place] #### AFPTM #### [facility] ,Calcium [Mass/Vol]8.8 mg/dLNormal8.6-10.3The [facility] Physician GroupComment on above:Performed By: #### LIPID, PSAS, TSH3 wRFLX, CMP, PT #### [facility] [address] [place] [address] [place] #### AFPTM #### [facility] ,Chloride [Moles/Vol]109 mmol/YClyf71-463Zvd [facility] Physician GroupComment on above:Performed By: #### LIPID, PSAS, TSH3 wRFLX, CMP, PT #### [facility] [address] [place] [address] [place] #### AFPTM #### [facility] ,CO2 [Moles/Vol]31.4 mmol/LHigh21.0-31.0The [facility] Physician GroupComment on above:Performed By: #### LIPID, PSAS, TSH3 wRFLX, CMP, PT #### [facility] [address] [place] [address] [place] #### AFPTM #### [facility] ,Creatinine [Mass/Vol]0.91 mg/dLNormal0.70-1.30The [facility] Comment on above:Performed By: #### LIPID, PSAS, TSH3 wRFLX, CMP, PT #### [facility] [address] [place] [address] [place] #### AFPTM #### [facility] ,GFR/1.73 sq M.predicted MDRD (S/P/Bld) [Vol rate/Area]mL/min/{1.73_m2}NormalThe [facility] Physician GroupComment on above:Performed By: #### LIPID, PSAS, TSH3 wRFLX, CMP, PT #### [facility] [address] [place] [address] [place] #### AFPTM #### [facility] ,Globulin (S) [Mass/Vol]2.7 g/dLNormalThe [facility] Physician GroupComment on above:Performed By: #### LIPID, PSAS, TSH3 wRFLX, CMP, PT #### [facility] [address] [place] [address] [place] #### AFPTM #### [facility] ,Glucose [Mass/Vol]82 mg/yWExoknr85-962Kwd [facility] Physician GroupComment on above:Result Comment: Random Glucose Reference Range is dependent on time and content of last meal. Glucose of more than 200 mg/dL in a nonstressed, ambulatory subject supports the diagnosis of Diabetes Mellitus. ADA recommended reference rangePerformed By: #### LIPID, PSAS, TSH3 wRFLX, CMP, PT #### [place] [address] [place] #### AFPTM #### [facility] ,Potassium [Moles/Vol]4.3 mmol/LNormal3.5-5.1The [facility] Comment on above:Performed By: #### LIPID, PSAS, TSH3 wRFLX, CMP, PT #### [facility] [address] [place] [address] [place] #### AFPTM #### [facility] ,Protein [Mass/Vol]6.2 g/dLLow6.4-8.9The [facility] Physician GroupComment on above:Performed By: #### LIPID, PSAS, TSH3 wRFLX, CMP, PT #### [place] [address] [place] #### AFPTM #### [facility] ,Sodium [Moles/Vol]141 mmol/TPwvken636-547Etf [facility] Physician GroupComment on above:Performed By: #### LIPID, PSAS, TSH3 wRFLX, CMP, PT #### [place] [address] [place] #### AFPTM #### [facility] ,Urea nitrogen [Mass/Vol]18 mg/dLNormal7-25The [facility] Physician GroupComment on above:Performed By: #### LIPID, PSAS, TSH3 wRFLX, CMP, PT #### [facility] [address] [place] [address] [place] #### AFPTM #### [facility] ,Creatinine [Mass/volume] in Serum or PlasmaOrdered By: Mick Branch on 17-02-8385Vxeqcrchtz [Mass/Vol]Creatinine [Mass/volume] in Serum or Plasma 0.70-1.30Martins Ferry HospitalGlobulin Calc (S) [Mass/Vol]Ordered By: Mick Branch on 93-71-2728Ljkckamy (S) [Mass/Vol]Serum globulin measurement by calculation (mass/volume)Mart[facility] Ferry HospitalGlucose [Mass/volume] in Serum or PlasmaOrdered By: Mick Branch on 67-72-6527Jgyadav [Mass/Vol]Glucose [Mass/volume] in Serum or Myndle98-500XosjlhjbzMartins Ferry HospitalComment on above:ADA recommended reference rangeRandom Glucose Reference Range is dependent on time and content of last meal. Glucose of more than 200 mg/dL in a nonstressed, ambulatory subject supports the diagnosisof Diabetes Mellitus.INR in Platelet poor plasma by Coagulation assayOrdered By: Mick Branch on 96-17-7343TAD Coag (PPP) [Relative time]INR in Platelet poor plasma by Coagulation assayMartins Ferry HospitalComment on above:INR Therapeutic Range A) Pre- and Peroperative OAT started two weeks before surgery. NOT HIP SURGERY: 1.5 - 2.5 HIP SURGERY: 2 - 3B) Primary and secondary prevention of venous THROMBOSIS: 2 - 3C) Active venous thrombosis, pulmonary embolismand prevention of recurrent venous thrombosis: 2 - 3D) Prevention of arterial thromboembolismincluding patients with mechanical heart valves: 3 - 4.5Lipid Panelon 79-85-9060Myvdxqfqorj [Mass/Vol]142 mg/kXBbwbux115-726Rdx [facility] Physician GroupComment on above:Result Comment: Chol less than 200 mg/dl low risk Chol 201-239 mg/dl borderline risk Chol 240 mg/dl and greater high riskPerformed By: #### LIPID, PSAS, TSH3 wRFLX, CMP, PT #### [facility] [address] #### AFPTM #### [facility] ,Cholesterol in HDL [Mass/Vol]42 mg/kUKsxovi94-06Bma [facility] Comment on above:Result Comment: HDL CHOL ATP-III CLASSIFICATION Cardiovascular Risk HDL > or equal to 60 mg/dL LOW HDL < 40 mg/dL HIGHPerformed By: #### LIPID, PSAS, TSH3 wRFLX, CMP, PT #### [facility] [address] [place] [address] [place] #### AFPTM #### [facility] ,Cholesterol.total/Cholesterol in HDL [Mass ratio]3.4 {ratio}Normal<5.0The [facility] Physician GroupComment on above:Performed By: #### LIPID, PSAS, TSH3 wRFLX, CMP, PT #### [facility] [address] [place] [address] [place] #### AFPTM #### [facility] ,LDL Cholesterol,Kwuzwvxbxi48 mg/dLNormal0-100The [facility] Comment on above:Result Comment: LDL ATP III CLASSIFICATION LDL less than 100 mg/dL Optimal LDL 100-129 mg/dL Near or above optimal LDL 130-159 mg/dL Borderline high LDL 160-189 mg/dL High LDL greater than 189 mg/dL Very highPerformed By: #### LIPID, PSAS, TSH3 wRFLX, CMP, PT #### [place] [address] [place] #### AFPTM #### [facility] ,Triglyceride w/Fgbyfp168 mg/dLHigh0-149The [facility] Physician GroupComment on above:Result Comment: TRIG ATP III CLASSIFICATION TRIG less than 150 mg/dL Normal TRIG 150-199 mg/dL Borderline high TRIG 200-500 mg/dL High TRIG greater than 500 mg/dL Very high Standard traceable to the Center for Disease Conrtrol and Prevention (CDC) test method.Performed By: #### LIPID, PSAS, TSH3 wRFLX, CMP, PT #### [facility] [address] [place] [address] [place] #### AFPTM #### [facility] ,VLDL JHAPVNEZQOP80 mg/dLNormalThe [facility] Physician GroupComment on above: Performed By: #### LIPID, PSAS, TSH3 wRFLX, CMP, PT #### [facility] [address] [place] [address] [place] #### AFPTM #### [facility] ,No Panel InformationOrdered By: Mick Branch on 36-59-5959Kkpkjjsok GFR (CKD-EPI)> 60.0 mL/MinMartins Ferry HospitalPharmacy Creatinine Clearance (ChemN/AFOhioHealth Hardin Memorial HospitalPSA Screen (Yearly Only)on 34-67-5887VUN Screen (Yearly Only)0.600 ng/mLNormal0.000-4.000The [facility] Physician GroupComment on above:Result Comment: Serial tumor marker results determined by assays using different manufacturers or methods may not be comparable. [facility] Laboratory casting molder and method: AirpushEL DXI, CHEMILUMINESCENT IMMUNOASSAY. PERFORMED BY: [place] [address] PATHOLOGIST TICKET SELLER LUCIUS IRELAND M.D.Performed By: #### LIPID, PSAS, TSH3 wRFLX, CMP, PT #### [address] #### AFPTM #### [facility] ,Potassium [Moles/volume] in Serum or PlasmaOrdered By: Mick Branch on 20-61-1887Tkjvtrqox [Moles/Vol]Potassium [Moles/volume] in Serum or Plasma 3.5-5.1FOhioHealth Hardin Memorial HospitalProstate specific Ag [Mass/volume] in Serum or PlasmaOrdered By: Mick Branch on 00-73-3371Hswophna specific Ag [Mass/Vol]Prostate specific Ag [Mass/volume] in Serum or Plasma0.000-4.000 [facility]erry HospitalComment on above:Serial tumor marker results determined by assays using different manufacturers or methods may not be comparable.[facility] casting molder and method:AirpushEL DXI, CHEMILUMINESCENT IMMUNOASSAY.Protein [Mass/volume] in Serum or PlasmaOrdered By: Mick Branch on 19-30-3863Yssvxgs [Mass/Vol]Protein [Mass/volume] in Serum or PlasmaLow6.4-8.9Martins Ferry HospitalProthrombin Time INRon 35-54-6998MYV Coag (PPP) [Relative time]1.2 {INR}NormalThe [facility] Physician GroupComment on above:Result Comment: INR Therapeutic [...] heart valves: 3 - 4.5 PERFORMED BY: [place] [address] PATHOLOGIST TICKET SELLER LUCIUS IRELAND M.D.Performed By: #### LIPID, PSAS, TSH3 wRFLX, CMP, PT #### [address] #### AFPTM #### [facility] ,PT Coag (PPP) [Time]13.8 sHigh9.0-12.9The [facility] Physician GroupComment on above:Result Comment: A hematocrit value greater than 55% may lead to inaccurate results in coagulation testing. Patients having hematocrit values >55% require a special collection tube for coagulation studies. Please contact the laboratory at [phone] for redraw instructions.Performed By: #### LIPID, PSAS, TSH3 wRFLX, CMP, PT #### [address] #### AFPTM #### [facility] ,Prothrombin time (PT)Ordered By: Mick Branch on 19-80-7998AC Coag (PPP) [Time]Prothrombin time (PT)High9.0-12.9Mart[facility] Ferry HospitalComment on above:A hematocrit value greater than 55% may lead to inaccurate results in coagulation testing. Patientshaving hematocrit values >55% require a special collection tube for coagulation studies. Please contact the laboratory at [phone] for redraw instructions.Serum or plasma albumin/globulin mass ratio Ordered By: Mick Branch on 82-03-7346Fwictla/Globulin [Mass ratio]Serum or plasma albumin/globulin mass ratioMercy Health Tiffin Hospitalerum or plasma imtfw-3-gwcebzsxgns tumor marker measurement (mass/volume)Ordered By: Mick Branch on 46-40-5999MDJ.tumor marker [Mass/Vol]Serum or plasma rgewz-3-ekxfjmucfbn tumor marker measurement (mass/volume)0.0-8.4FOhioHealth Hardin Memorial HospitalComment on above:[facility] Electrochemiluminescence Immunoassay(ECLIA)Values obtained with different assay methods or kits cannotbe used interchangeably. Results cannot be interpreted asabsolute evidence of the presence or absence of malignantdisease.This test is not interpretable in females.Performed at: [facility] [id number] Director: Charlie Klein PhD, Phone: [phone] or plasma anion gap determinationOrdered By: Mick Branch on 71-17-1802Setkm gap [Moles/Vol]Serum or plasma anion gap determinationLow 6.0-15.0Mercy Health Tiffin Hospitalerum or plasma total cholesterol/high density lipoprotein (HDL) cholesterol mass ratOrdered By: Mick Branch on 91-41-1181Asmqdhkdtns.total/Cholesterol in HDL [Mass ratio]Serum or plasma total cholesterol/high density lipoprotein (HDL) cholesterol mass rat<5.0Mercy Health Tiffin Hospitalodium [Moles/volume] in Serum or PlasmaOrdered By: Mick Branch on 10-29-4072Dgpfdq [Moles/Vol]Sodium [Moles/volume] in Serum or Ktpwcv424-115XrfppyjcmMartins Ferry HospitalThyroid Stim Hormone w/Rflxon 27-94-1557Cetmopm Stim Hormone w/Rflx3.07 u[iU]/mLNormal0.45-5.33The [facility] Physician GroupComment on above:Result Comment: PERFORMED BY: [place] [address] PATHOLOGIST TICKET SELLER LUCIUS IRELAND M.D.Performed By: #### LIPID, PSAS, TSH3 wRFLX, CMP, PT #### [place] [address] [place] #### AFPTM #### [facility] ,Thyrotropin [Units/volume] in Serum or PlasmaOrdered By: Mick Branch on 39-36-3493PLE QnThyrotropin [Units/volume] in Serum or Plasma0.45-5.33Mart[facility] Ferry HospitalTriglyceride [Mass/volume] in Serum or PlasmaOrdered By: Mick Branch on 24-44-9165Sotmildxdvmd [Mass/Vol]Triglyceride [Mass/volume] in Serum or PlasmaHigh0-149Mart[facility] Ferry HospitalComment on above:TRIG ATP III CLASSIFICATIONTRIG less than 150 mg/dL NormalTRIG 150-199 mg/dL Borderline highTRIG 200-500 mg/dL High TRIG greater than 500 mg/dL Very highStandard traceable to the Center for Disease Conrtrol and Prevention (CDC) test method.Urea nitrogen [Mass/volume] in Serum or PlasmaOrdered By: Mick Branch on 53-20-1373Qdpp nitrogen [Mass/Vol]Urea nitrogen [Mass/volume] in Serum or Plasma7-25Martins Ferry HospitalALL CBC WITH AUTO DIFFon 73-15-8130Ydcxcuqcuxv distribution width (RBC) [Ratio]13.6 %11.0 - 15.0 %[facility] Summit HospitalHematocrit (Bld) [Volume fraction]40 %Low42.0 - 54.0 %[facility] Hemoglobin (Bld) [Mass/Vol]13 g/dLLow14.0 - 18.0 g/dLLee's Summit Hospital Interpretation and review of laboratory resultsAbnormalSamaritan Hospital (RBC) [Entitic mass]31.6 pg25.9 - 34.0 pgSelect Specialty HospitalHC (RBC) [Mass/Vol]32.5 g/dL 29.9 - 35.2 g/dLSelect Specialty HospitalV (RBC) [Entitic vol]97.1 hYVnvc64.0 - 94.0 fL [facility] HospitalPlatelet mean volume (Bld) [Entitic vol]11.1 fL9.5 - 13.5 fLBothwell Regional Health Center VQM44GrfZRYYDoctors [facility] of [facility] RBC4.12LowBothwell Regional Health Center WBC4.9[facility] Summit HospitalCLINISYNCNOMS [facility] Medical CenterECG 12 Leadon 41-60-4400Nvyhg bradycardia, PVC, sinus arrhythmia, anterolateral [place] age-indeterminate, abnormal ECGUnWood County Hospital Work Phone: UnWood County Hospital Work Phone: aLL CBC WITH AUTO DIFFon 34-19-4845Ekmkajzjccz distribution width (RBC) [Ratio]18.3 %High11.0 - 15.0 %[facility] HealthcareHematocrit (Bld) [Volume fraction]38.3 %Low42.0 - 54.0 %[facility] HealthcareHemoglobin (Bld) [Mass/Vol]12.2 g/dLLow14.0 - 18.0 g/dLLee's Summit HospitalInterpretation and review of laboratory resultsAbnormalSamaritan Hospital (RBC) [Entitic mass]29.5 pg25.9 - 34.0 pgSelect Specialty HospitalHC (RBC) [Mass/Vol]31.9 g/dL29.9 - 35.2 g/dLSelect Specialty HospitalV (RBC) [Entitic vol]92.5 fL80.0 - 94.0 fLLee's Summit HospitalPlatelet mean volume (Bld) [Entitic vol]11.1 fL9.5 - 13.5 fLBothwell Regional Health Center BIO08Nnu [facility] RBC4.14LowBothwell Regional Health Center WBC3.1LRipley County Memorial Hospital CLINISYNCLee's Summit HospitalNo Panel InformationOrdered By: Mick Branch on 91-87-9741Gqdynmahheszw Pathology TestSee commentMartins Ferry HospitalComment on above:See report. Scanned copy available in EMR.Alanine aminotransferase [Enzymatic activity/volume] in Serum or PlasmaOrdered By: Mick Branch on 89-64-8251OGC [Catalytic activity/Vol]43 U/L7-52Martins Ferry HospitalAlbumin [Mass/volume] in Serum or Plasma by Bromocresol green (BCG) dye binding methoOrdered By: Mick Branch on 40-47-2839Golzmla BCG dye [Mass/Vol]3.9 g/dL3.5-5.7FOhioHealth Hardin Memorial HospitalAlkaline phosphatase [Enzymatic activity/volume] in Serum or PlasmaOrdered By: Mick Branch on 39-76-1096TBA [Catalytic activity/Vol]138 U/ZTakg70-230GkzhbuceuMartins Ferry HospitalAnisocytosis LM Ql (Bld)Ordered By: Mick Branch on 61-49-6606Uhlehwxbezsb Ql (Bld)SlightMartins Ferry HospitalAspartate aminotransferase [Enzymatic activity/volume] in Serum or PlasmaOrdered By: Mick Branch on 87-34-5757QZW [Catalytic activity/Vol]49 U/RKggm73-18QwblyohprMartins Ferry HospitalBand form neutrophils/100 WBC Manual cnt (Bld)Ordered By: Mick Branch on 65-80-4379Fwcv form neutrophils/100 WBC (Bld)1 %0-5FOhioHealth Hardin Memorial HospitalBasophils Auto (Bld) [#/Vol]Ordered By: Mick Branch on 61-94-2094Rxyroxhxf (Bld) [#/Vol]N/[facility] Basophils/100 WBC Auto (Bld)Ordered By: Mick Branch on 35-65-6501Axjkbburv/100 WBC (Bld)N/[facility] HospitalBilirubin.total [Mass/volume] in Serum or PlasmaOrdered By: Mick Branch on 93-03-3134Avqxduxpl [Mass/Vol]0.6 mg/dL0.3-1.0Mart[facility] Ferry HospitalCalcium [Mass/volume] in Serum or PlasmaOrdered By: Mick Branch on 55-98-5399Toxbgwc [Mass/Vol]8.8 mg/dL8.6-10.3 [facility] HospitalCarbon dioxide, total [Moles/volume] in Serum or PlasmaOrdered By: Mick Branch on 19-73-0590UR1 [Moles/Vol]27.5 mmol/L 21.0-31.0Mart[facility] Ferry HospitalChloride [Moles/volume] in Serum or PlasmaOrdered By: Mick Branch on 05-42-3124Gsgxglfo [Moles/Vol]111 mmol/LHigh 98-107Martins Ferry HospitalCreatinine [Mass/volume] in Serum or PlasmaOrdered By: Mick Branch on 40-63-9204Boictfmtul [Mass/Vol]0.94 mg/dL 0.70-1.30[facility] CenterEosinophils Auto (Bld) [#/Vol]Ordered By: Mick Branch on 82-02-1200Eynwlxnddsa (Bld) [#/Vol]N/[facility] HospitalEosinophils/100 WBC Auto (Bld)Ordered By: Mick Branch on 81-69-5519Fzyfvfjwlyz/100 WBC (Bld)N/[facility] Eosinophils/100 WBC Manual cnt (Bld)Ordered By: Mick Branch on 09-17-2023 Eosinophils/100 WBC (Bld)4 %High1-3FOhioHealth Hardin Memorial HospitalErythrocyte distribution width Auto (RBC) [Ratio]Ordered By: Mick Branch on 09-17-2023 Erythrocyte distribution width (RBC) [Ratio]17.4 %High12.0-14.8Martins Ferry HospitalFerritin [Mass/volume] in Serum or PlasmaOrdered By: Mick Branch on 28-00-4768Uepxtnor [Mass/Vol]23.4 ng/mLLow23.9-336.2FOhioHealth Hardin Memorial HospitalGlobulin Calc (S) [Mass/Vol]Ordered By: Mick Branch on 89-90-8874Antpozjz (S) [Mass/Vol]2.7 g/dLMartins Ferry Hospital Glucose [Mass/volume] in Serum or PlasmaOrdered By: Mick Branch on 09-17-2023 Glucose [Mass/Vol]78 mg/pT43-658PuxxmjwzrMartins Ferry HospitalComment on above:ADA recommended reference rangeRandom Glucose Reference Range is dependent on time and content of last meal. Glucose of more than 200 mg/dL in a nonstressed, ambulatory subject supports the diagnosisof Diabetes Mellitus. Hematocrit Auto (Bld) [Volume fraction]Ordered By: Mick Branch on 09-17-2023 Hematocrit (Bld) [Volume fraction]37.4 %Low38.8-50.0Martins Ferry HospitalHemoglobin [Mass/volume] in BloodOrdered By: Mick Branch on 09-17-2023 Hemoglobin (Bld) [Mass/Vol]12.1 g/dLLow13.0-17.0Martins Ferry HospitalINR in Platelet poor plasma by Coagulation assayOrdered By: Mick Branch on 82-94-2288SNX Coag (PPP) [Relative time]1.1 {INR}Mart[facility] Ferry HospitalComment on above:INR Therapeutic Range A) Pre- and [...] Serum or PlasmaOrdered By: Mick Branch on 02-75-7226Rukm [Mass/Vol]52 ug/vN82-820LkzoopnndMartins Ferry HospitalIron binding capacity [Mass/volume] in Serum or PlasmaOrdered By: Mick Branch on 91-51-4919Nqbq binding capacity [Mass/Vol]496 ug/pXEupx478-473RljcnjamiMartins Ferry HospitalIron saturation [Mass Fraction] in Serum or Plasma Ordered By: Mick Branch on 70-40-3801Owsd saturation [Mass fraction]10.5 %Low 20-50Martins Ferry HospitalLeukocytes [#/volume] corrected for nucleated erythrocytes in Blood by Automated counOrdered By: Mick Branch on 23-86-2865WKD corrected for nucl RBC Auto (Bld) [#/Vol]3.2 10*3/uLLow4.1-10.5 [facility] HospitalLymphocytes Auto (Bld) [#/Vol]Ordered By: Mick Branch on 71-52-1407Yrjajlxqsqf (Bld) [#/Vol]N/[facility] HospitalLymphocytes/100 WBC Auto (Bld)Ordered By: Mick Branch on 47-61-1102Jeaxyufwvts/100 WBC (Bld)N/[facility] Lymphocytes/100 WBC Manual cnt (Bld)Ordered By: Mick Branch on 09-17-2023 Lymphocytes/100 WBC (Bld)25 %18-42Martins Ferry HospitalMCH Auto (RBC) [Entitic mass]Ordered By: Mick Branch on 42-18-1183RQS (RBC) [Entitic mass]27.4 pgLow27.5-35.2FOhioHealth Hardin Memorial HospitalMCHC Auto (RBC) [Mass/Vol]Ordered By: Mick Branch on 43-46-2072HZPA (RBC) [Mass/Vol]32.2 g/dL Low32.5-35.6FOhioHealth Hardin Memorial HospitalMCV Auto (RBC) [Entitic vol]Ordered By: Mick Branch on 80-92-6824LUG (RBC) [Entitic vol]85.0 fL83.5-101Martins Ferry HospitalMacrocytes LM Ql (Bld)Ordered By: Mick Branch on 86-65-0265Isqwykcxrv Ql (Bld)SlightMartins Ferry HospitalMicrocytes LM Ql (Bld)Ordered By: Mcik Branch on 28-84-4681Vihgmcamjf Ql (Bld)[facility] HospitalMonocytes Auto (Bld) [#/Vol]Ordered By: Mick Branch on 02-24-4918Jxogfdmkg (Bld) [#/Vol]N/[facility] Monocytes/100 WBC Auto (Bld)Ordered By: Mick Branch on 81-87-1977Vyzhiwkfr/100 WBC (Bld)N/[facility] HospitalMonocytes/100 WBC Manual cnt (Bld) Ordered By: Mick Branch on 00-18-8932Ebztimzui/100 WBC (Bld)8 %2-11Martins Ferry HospitalNeutrophils Auto (Bld) [#/Vol]Ordered By: Mick Branch on 22-61-0382Cjfioptpolw (Bld) [#/Vol]N/[facility] Neutrophils/100 WBC Auto (Bld)Ordered By: Mick Branch on 09-17-2023 Neutrophils/100 WBC (Bld)N/[facility] HospitalNo Panel InformationOrdered By: Mick Branch on 23-18-9900Ocifndqna GFR (CKD-EPI)> 60.0 mL/MinMartins Ferry HospitalPharmacy Creatinine Clearance (ChemN/A [facility] Ferry HospitalNucleated erythrocytes [Presence] in Blood by Automated countOrdered By: Mick Branch on 07-45-9211Dbkxjiemv RBC Auto Ql (Bld)N/AFOhioHealth Hardin Memorial HospitalOvalocyte detectionOrdered By: Mick Branch on 88-60-9465Svlbieuanw LM Ql (Bld)[facility] Platelet adequacy [Presence] in Blood by Light microscopyOrdered By: Mick Branch on 86-40-7253Qmolavqio LM Ql (Bld)DecreasedNormDayton Children's HospitalPlatelet mean volume Auto (Bld) [Entitic vol]Ordered By: Mick Branch on 78-39-5243Ddzxntao mean volume (Bld) [Entitic vol]8.9 fL6.6-10.1 [facility] HospitalPlatelet morphology finding [Identifier] in BloodOrdered By: Mick Branch on 38-73-1461Uvfgygov morphology finding Nom (Bld)NormalNormDayton Children's HospitalPlatelets Auto (Bld) [#/Vol] Ordered By: Mick Branch on 62-19-9419Kvsklmxhp (Bld) [#/Vol]112 10*3/uLLow 150-450Martins Ferry HospitalPoikilocytosis [Presence] in Blood by Light microscopyOrdered By: Mick Branch on 68-41-3453Xsjtklwnrpjoon LM Ql (Bld)[facility] HospitalPotassium [Moles/volume] in Serum or PlasmaOrdered By: Mick Branch on 72-85-2611Oodkvoxqp [Moles/Vol]4.3 mmol/L 3.5-5.1FOhioHealth Hardin Memorial HospitalProtein [Mass/volume] in Serum or Plasma Ordered By: Mick Branch on 68-60-9952Vengfvy [Mass/Vol]6.6 g/dL6.4-8.9 [facility] HospitalProthrombin time (PT)Ordered By: Mick Branch on 06-81-8700RU Coag (PPP) [Time]13.1 sHigh9.0-12.9Martins Ferry HospitalComment on above:A hematocrit value greater than 55% may lead to inaccurate results in coagulation testing. Patientshaving hematocrit values >55% require a special collection tube for coagulation studies. Please contact the laboratory at [phone] for redraw instructions.RBC Auto (Bld) [#/Vol]Ordered By: Mick Branch on 15-89-4335REG (Bld) [#/Vol]4.40 10*6/uL3.90-5.60Martins Ferry HospitalRBC morphologyOrdered By: Mick Branch on 61-08-2405ACV morphology finding Nom (Bld)N/AFPeoples Hospitalegmented neutrophils/100 WBC Manual cnt (Bld)Ordered By: Mick Branch on 09-17-2023 Segmented neutrophils/100 WBC (Bld)63 %50-70[facility] Serum or plasma albumin/globulin mass ratioOrdered By: Mick Branch on 61-69-8935Lsrkvky/Globulin [Mass ratio]1.4 {ratio}[facility]iffin Hospitalerum or plasma wbegb-0-gdxubdkypid tumor marker measurement (mass/volume) Ordered By: Mick Branch on 68-73-9457VCE.tumor marker [Mass/Vol]3.0 ng/mL 0.0-8.4FOhioHealth Hardin Memorial HospitalComment on above:[employer] Electrochemiluminescence Immunoassay(ECLIA)Values obtained with different assay methods or kits cannotbe used interchangeably. Results cannot be interpreted asabsolute evidence of the presence or absence of malignantdisease.This test is not interpretable in females.Performed at: [address] [id number] Director: Charlie Klein PhD, Phone: [phone] or plasma anion gap determinationOrdered By: Mick Branch on 32-29-8521Wcamd gap [Moles/Vol]8.8 mmol/L6.0-15.0[facility]iff[facility] Hospitalodium [Moles/volume] in Serum or PlasmaOrdered By: Mick Branch on 12-19-0749Btocao [Moles/Vol]143 mmol/P287-725YenucayhkMartins Ferry Hospital Transferrin [Mass/volume] in Serum or PlasmaOrdered By: Mick Branch on 66-71-6209Dlpooisfxja [Mass/Vol]354 mg/rO658-736CpqznwfqzMartins Ferry HospitalUrea nitrogen [Mass/volume] in Serum or PlasmaOrdered By: Mick Branch on 43-13-2541Lskl nitrogen [Mass/Vol]20 mg/dL10-16[facility] WBC Auto (Bld) [#/Vol]Ordered By: Mick Branch on 37-53-8322VXJ (Bld) [#/Vol] 3.4 10*3/uLLow4.1-10.5FOhioHealth Hardin Memorial HospitalECG 12 Leadon 06-20-2023 Sinus rhythm, rightward axis, bigeminal PVCs, anteroseptal infarction pattern age indeterminant, abnormal ECGCPACSGeorgetown Behavioral Hospital Work Phone: albumin [Mass/volume] in Serum or PlasmaOrdered By: Zoila Castorena on 31-93-9990Jbdclsi [Mass/Vol]3.0 g/dL2.9-4.4FOhioHealth Hardin Memorial HospitalFolate [Mass/volume] in Serum or PlasmaOrdered By: Zoila Castorena on 83-67-5711Oxkivp [Mass/Vol]40.0 ng/mL>5.9[facility] Comment on above:Folate reference range: >5.9 ng/mlThe WHO technical consultation on folate and vitamin t63oswtrscikxct has determined that folate concentrations lessthan 4 ng/ml are considered deficient.Haptoglobin [Mass/volume] in Serum or PlasmaOrdered By: Zoila Castorena on 42-50-6028Cufwlkeboij [Mass/Vol]58 mg/eS84-519BzefnmopxMartins Ferry HospitalLactate dehydrogenase [Enzymatic activity/volume] in Serum or Plasma by Lactate to pyOrdered By: Zoila Castorena on 52-79-8249POL Lactate to pyruvate reaction [Catalytic activity/Vol]221 U/H306-723RsmtjctaxMartins Ferry HospitalNo Panel InformationOrdered By: Zoila Castorena on 74-73-4936Wjbfkqs Electrophoresis M-SpikeNot observed g/dLNot Observed [facility] HospitalProtein Electrophoresis NoteSee comment. [facility] Ferry HospitalComment on above:Protein electrophoresis scan will follow via computer,mail, or clam shucker delivery.Performed at: [facility] [employer] [place], [place] [id number] Director: Charlie Klein PhD, Phone: [phone] [Mass/volume] in Serum or PlasmaOrdered By: Zoila Castorena on 38-22-1003Ozphicf [Mass/Vol]6.0 g/dL6.0-8.5FOhioHealth Hardin Memorial Hospital Serum globulin measurement (mass/volume)Ordered By: Zoila Castorena on 08-08-2022 Globulin (S) [Mass/Vol]3.0 g/dL2.2-3.9[facility] Hospitalerum or plasma albumin/globulin mass ratioOrdered By: Zoila Castorena on 08-08-2022 Albumin/Globulin [Mass ratio]1.0 {ratio}0.7-1.7FOhioHealth Hardin Memorial Hospital Serum or plasma alpha 1 globulin measurement by electrophoresis (mass/volume) Ordered By: Zoila Castorena on 79-12-6240Yhnpy 1 globulin Elph [Mass/Vol]0.2 g/dL 0.0-0.4FPeoples Hospitalerum or plasma alpha 2 globulin measurement by electrophoresis (mass/volume)Ordered By: Zoila Castorena on 08-08-2022 Alpha 2 globulin Elph [Mass/Vol]0.7 g/dL0.4-1.0[facility] Serum or plasma beta globulin measurement by electrophoresis (mass/volume) Ordered By: Zoila Castorena on 35-41-9476Stqm globulin Elph [Mass/Vol]1.2 g/dL0.7-1.3 [facility] Hospitalerum or plasma gamma globulin measurement by electrophoresis (mass/volume)Ordered By: Zoila Castorena on 02-51-1818Nkfzr globulin Elph [Mass/Vol]1.0 g/dL0.4-1.8Mart[facility] Ferry HospitalVitamin B12 ser/plasOrdered By: Zoila Castorena on 14-72-3517Palwpsmla (Vitamin B12) [Mass/Vol]481 pg/jR304-018GsugmkpobMartins Ferry HospitalECHOCARDIO M/2D COMPLETEon 31-16-9307ALYMZDPJXA M/2D COMPLETEPatient: PANKAJ PAYNE Exam Date: 11/08/2021 : 1945 Gender:M Ordering : DR KARL MENON M.D. Admission #: [id number] Family : DR HANDEL JARVIS Trujillo Order #: [id number] CLICK HERE TO VIEW EXAM ECHOCARDIOGRAM REPORT [...] by: Karl Menon M.D. on 11/08/2021 at 16:55[facility] HospitalCreatinine and Glomerular filtration rate.predicted panel (S/P/Bld) Ordered By: Frantz Conley on 24-50-2613Evqdjbppxv [Mass/Vol]1.11 mg/dL0.64-1.27 [facility] HospitalEstimated glomerular filtration rate (GFR) non- AmericanOrdered By: Frantz Conley on 99-52-6138AUG/1.73 sq M.predicted among non-blacks MDRD (S/P/Bld) [Vol rate/Area]> 60 mL/MinMartins Ferry HospitalNo Panel InformationOrdered By: Frantz Conley on 10-10-2021 Estimated GFR ()> 60 mL/MinMartins Ferry Hospital Comment on above:GFR estimated reference range: According to KDOQI guidelines, <60 ml/min/1.73m2 is sufficient todiagnose a patient with chronic kidney disease.Pharmacy Creatinine Clearance (ChemN/[facility] Serum or plasma urea nitrogen measurement (mass/volume)Ordered By: Frantz Conley on 08-83-7513Zmcs nitrogen [Mass/Vol]16 mg/dL9-23Mart[facility] Ferry HospitalCOVID-19 Positive/NegativeOrdered By: Mick Branch on 09-15-2021 SARS-CoV-2 (COVID-19) N gene GÓMEZ+probe Ql (Resp)NegativeNegativeMartins Ferry HospitalComment on above:Testing for SARS-CoV-2 by RT-PCR This test was developed and its performance characteristics determined by [employer] ([employer]) and validated at the [facility]. This test has not been FDA [...] or revoked sooner.Basic Metab w/rfx MGon 08-17-2021(cont.)Normal [facility]de Memorial HospitalComment on above:Result Comment: Average GFR for 70 or more years old: 75 mL/min/1.73sq m Chronic Kidney Disease: <60 mL/min/1.73sq m Kidney failure: <15 mL/min/1.73sq m eGFR calculated using average adult body mass. Additional eGFR calculator available at: http://www.[employer]/multiple_crcl_2012.htmPerformed By: #### EMILY, BMPX #### [facility] [employer] [address] [place] [address] Pizza Baker: Tony Yanez MDAnion gap [Moles/Vol]9 mmol/LNormal9-17[facility] HospitalComment on above:Performed By: #### EMILY, BMPX #### [facility] [employer] [address] [place] [address] Pizza Baker: Tony Yanez MDCalcium [Mass/Vol]9.0 mg/dLNormal8.6-10.4[facility] HospitalComment on above:Performed By: #### EMILY, BMPX #### [facility] [employer] [address] [place] [address] Pizza Baker: Tony Yanez MDChloride [Moles/Vol]107 mmol/OMlbzfh55-550XrtttMccullough-Hyde Memorial HospitalComment on above:Performed By: #### CDP, BMPX #### [facility] [address] [place] [address] Pizza Baker: Tony Yanez MDCO2 [Moles/Vol]23 mmol/DQythed26-70RmxesMccullough-Hyde Memorial HospitalComment on above:Performed By: #### CDP, BMPX #### [address] [address] Pizza Baker: GUERRERO Rayreatinine [Mass/Vol]0.83 mg/dLNormal0.70-1.20 [facility] HospitalComment on above:Performed By: #### CDP, BMPX #### [address] [address] Pizza Baker: Tony Yanez MDGFR, Amer>60Normal>60[facility] HospitalComment on above:Performed By: #### EMILY, BMPX #### [address] [address] Pizza Baker: YAQUELIN Ray,non Amer>60Normal>60[facility] HospitalComment on above:Performed By: #### CDP, BMPX #### [address] [address] Pizza Baker: Tony Yanez MDGlucose [Mass/Vol]91 mg/lGWkffrf05-18HesfiNatividad Medical CenterComment on above:Performed By: #### CDP, BMPX #### [address] [address] Pizza Baker: Tony Yanez MDPotassium [Moles/Vol]4.3 mmol/LNormal3.7-5.3 [facility] HospitalComment on above:Performed By: #### CDP, BMPX #### [facility] [address] [place] [phone] Pizza Baker: Tony Yanez MDSodium [Moles/Vol]139 mmol/JVmtjkd930-105Uzcap [facility] Medical CenterComment on above:Performed By: #### CDP, BMPX #### [facility] [address] [place], [place] [phone] Pizza Baker: Tony Yanez MDUrea nitrogen [Mass/Vol]17 mg/dLNormal8-23[facility] HospitalComment on above:Performed By: #### EMILY, BMPX #### [facility] [address] [place], [place] [phone] Pizza Baker: Tony Yanez MDBasi Metabolic Panel w/ Reflex to MGon 14-42-4264Xhltr gap [Moles/Vol]9 mmol/L9 - 17 mmol/LBON Frontierre Calcium [Mass/Vol]9.0 mg/dL8.6 - 10.4 mg/dLBON SECAmonix HEALTHChloride [Moles/Vol]107 mmol/L98 - 107 mmol/LBON SECAmonix HEALTHCO2 [Moles/Vol]23 mmol/L20 - 31 mmol/LBON SECRaytheon BBN TechnologiesCreatinine [Mass/Vol]0.83 mg/dL0.70 - 1.20 mg/dLBON SECRaytheon BBN TechnologiesGFR >60>60 mL/minBON FrontierreGFR Non->60>60 mL/minBON Frontierre GFR/1.73 sq M.predicted MDRD (S/P/Bld) [Vol rate/Area][facility]ERNITY HOSPITALRaytheon BBN Technologies Comment on above:Average GFR for 70 or more years old: 75 mL/min/1.73sq m Chronic Kidney Disease: <60 mL/min/1.73sq m Kidney failure: <15 mL/min/1.73sq m eGFR calculated using average adult body mass. Additional eGFR calculator available at: http://www.[employer].Un[employer]/multiple_crcl_2012.htm Glucose [Mass/Vol]91 mg/dL70 - 99 mg/dLBON SECAmonix HEALTHPotassium [Moles/Vol]4.3 mmol/L3.7 - 5.3 mmol/LBON SECAmonix HEALTHSodium [Moles/Vol] 139 mmol/L135 - 144 mmol/LBON MORROW COUNTY HOSPITALUrea nitrogen (BldV) [Mass/Vol]17 mg/dL8 - 23 mg/dLBON [facility] CBC with Auto Differentialon 04-05-0282Xvrrvsby Eos #0.11BON SECMERCY HEALTH FAIRFIELD HOSPITALAbsolute Immature Granulocyte<0.03BON SECMERCY HEALTH FAIRFIELD HOSPITALAbsolute Lymph # 1.10BON SECMERCY HEALTH FAIRFIELD HOSPITALAbsolute [place] #0.53BON [facility] HOSPITALBasophils (Bld) [#/Vol]0.03 10*3/uLBON MORROW COUNTY HOSPITALBasophils/100 WBC (Bld)1 %0 - 2 %BON M[facility] COUNTY HOSPITALEosinophils/100 WBC (Bld)2 %1 - 4 %[facility] HOSPITALHematocrit (Bld) [Volume fraction]36.2 %Low40.7 - 50.3 %[facility] HOSPITALHemoglobin.gastrointestinal spec 1 Ql (Stl)12.1 g/dLLow13.0 - 17.0 g/dLBON MORROW COUNTY HOSPITALImmature granulocytes/100 WBC (Bld)0 %0S[facility] HOSPITALInterpretation and review of laboratory resultsAbnormalBON MORROW COUNTY HOSPITALLymphocytes/100 WBC (Bld)22 %Low24 - 43 %[facility]DR[facility]S HOSPITALH (RBC) [Entitic mass]31.1 pg25.2 - 33.5 pgBON TRIHEALTH GOOD SAMARITAN HOSPITALHC (RBC) [Mass/Vol] 33.4 g/dL28.4 - 34.8 g/dLBON TRIHEALTH GOOD SAMARITAN HOSPITALV (RBC) [Entitic vol]93.1 fL 82.6 - 102.9 fLSOUTHAMPTON MEMORIAL HOSPITALMonocytes/100 WBC (Bld)11 %3 - 12 %[facility] HOSPITALNRBC Automated0.00.0 per 100 WBCSOUTHAMPTON MEMORIAL HOSPITAL Platelet distribution width (Bld) [Ratio]13.2 %11.8 - 14.4 %[facility] HOSPITALPlatelet mean volume (Bld) [Entitic vol]11.2 fL8.1 - 13.5 fLBON SECOURS MERCY HEALTHPlatelets (Bld) [#/Vol]94 10*3/uLLowBON MORROW COUNTY HOSPITALRBC (Bld) [#/Vol]3.89 10*6/uLLow4.21 - 5.77 m/uLSOUTHAMPTON MEMORIAL HOSPITALSegmented neutrophils/100 WBC (Bld)64 %36 - 65 %BON MORROW COUNTY HOSPITALSegs Absolute3.14 BON M[facility] COUNTY HOSPITALWBC (Bld) [#/Vol]4.9 10*3/uLBON [facility] HEALTHSOUTHAMPTON MEMORIAL HOSPITALCBC with Diffon 22-98-7696Zne. Basophil0.03 k/uLNormal 0.00-0.20[facility] HospitalComment on above:Performed By: #### EMILY, BMPX #### [facility] [employer] [address] [place] [address] Pizza Baker: MDAbs. CoryImm.Granulocyte<0.52Rrbbhq6.00-0.30[facility] HospitalComment on above:Performed By: #### EMILY, BMPX #### [facility] [employer] [address] [place] [address] Pizza Baker: Marek Ray.Neutrophil (Seg)3.14 k/uLNormal1.50-8.10 [facility] HospitalComment on above:Performed By: #### EMILY, BMPX #### [facility] [employer] [address] [place] [address] Pizza Baker: Tony Yanez MDBasophils/100 WBC (Bld)1 %Normal0-2[facility] Medical CenterComment on above:Performed By: #### CDP, BMPX #### [facility] [employer] [address] [place] [address] Pizza Baker: Tony Yanez MDEosinophils (Bld) [#/Vol]0.11 10*3/uLNormal 0.00-0.44[facility] HospitalComment on above:Performed By: #### CDP, BMPX #### [address] [address] Pizza Baker: Tony Yanez MDEosinophils/100 WBC (Bld)2 %Normal1-4[facility] Memorial HospitalComment on above:Performed By: #### CDP, BMPX #### [place] [address] Pizza Baker: Tony Yanez MDErythrocyte distribution width (RBC) [Ratio]13.2 %Zeopef49.8-14.4[facility] Memorial HospitalComment on above:Performed By: #### CDP, BMPX #### [place] [address] Pizza Baker: Tony Yanez MDHematocrit (Bld) [Volume fraction]36.2 %Low 40.7-50.3MNatividad Medical CenterComment on above:Performed By: #### CDP, BMPX #### [place] [address] Pizza Baker: Tony Yanez MDHemoglobin (Bld) [Mass/Vol]12.1 g/dLLow13.0-17.0 [facility] HospitalComment on above:Performed By: #### CDP, BMPX #### [place] [address] Pizza Baker: Tony Yanez MDImmature granulocytes/100 WBC (Bld)0 %Normal0 [facility] HospitalComment on above:Performed By: #### CDP, BMPX #### [address] [address] Pizza Baker: Tony Yanez MDLymphocytes (Bld) [#/Vol]1.10 10*3/uLNormal 1.10-3.70[facility] HospitalComment on above:Performed By: #### EMILY, BMPX #### [address] [address] Pizza Baker: Tony Yanez MDLymphocytes/100 WBC (Bld)22 %Skr78-13AdyqcMccullough-Hyde Memorial HospitalComment on above:Performed By: #### CDP, BMPX #### [address] [address] Pizza Baker: JOSEFA RayCH (RBC) [Entitic mass]31.1 xqMhvprh80.2-33.5 [facility] HospitalComment on above:Performed By: #### CDP, BMPX #### [address] [address] Pizza Baker: JOSEFA RayCHC (RBC) [Mass/Vol]33.4 g/mJWjsszm00.4-34.8 [facility] HospitalComment on above:Performed By: #### CDP, BMPX #### [place] [address] Pizza Baker: JOSEFA RayCV (RBC) [Entitic vol]93.1 eTUpargh18.6-102.9 [facility] HospitalComment on above:Performed By: #### CDP, BMPX #### [place] [address] Pizza Baker: JOSEFA Rayonocytes (Bld) [#/Vol]0.53 10*3/uLNormal 0.10-1.20[facility] HospitalComment on above:Performed By: #### CDP, BMPX #### [address] [address] Pizza Baker: JOSEFA Rayonocytes/100 WBC (Bld)11 %Normal3-12[facility] HospitalComment on above:Performed By: #### CDP, BMPX #### [facility] [address] [place] [address] Pizza Baker: Gabe Rayophil (Seg)64 %Nczhxx06-96PwbdxMccullough-Hyde Memorial HospitalComment on above:Performed By: #### CDP, BMPX #### [facility] [address] [place] [address] Pizza Baker: AD Ray Automated0.0 per 100 WBCNormal0.0[facility] Memorial HospitalComment on above:Performed By: #### CDP, BMPX #### [facility] [address] [place] [address] Pizza Baker: Darci Ray mean volume (Bld) [Entitic vol]11.2 fL Normal8.1-13.5[facility] HospitalComment on above:Performed By: #### CDP, BMPX #### [facility] [address] [place] [address] Pizza Baker: Royal Ray (Bld) [#/Vol]94 10*3/uGGxe313-625LztvcMccullough-Hyde Memorial HospitalComment on above:Performed By: #### CDP, BMPX #### [facility] [address] [place] [address] Pizza Baker: ANDRES Ray (Bld) [#/Vol]3.89 10*6/uLLow4.21-5.77[facility] HospitalComment on above:Performed By: #### CDP, BMPX #### [facility] [address] [place] [address] Pizza Baker: NED Ray (Bld) [#/Vol]4.9 10*3/uLNormal3.5-11.3[facility] CenterComment on above:Performed By: #### CDP, BMPX #### [facility] [address] [place] [address] Pizza Baker: Tony Yanez MDCT FACIAL BONES WO CONTRASTon [id number] FACIAL BONES WO CONTRASTEXAMINATION: CT OF THE [...] SYSTEM PROVIDED HISTORY: Impact with object riding filling hand TECHNOLOGIST PROVIDED HISTORY: Impact with object riding filling hand Decision Support Exception - unselect if not [...] by: Augustin Hodges MD 08/16/21 Final resultNormalMercy West Anaheim Medical CenterMRSA DNA Probe, Nasalon [id number], DNA, NasalNegativeNEGATIVESOUTHAMPTON MEMORIAL HOSPITALComment on above:NEGATIVE: MRSA DNA not detected by nucleic acid amplification. Results should be used as an adjunct to nosocomial control efforts to identify patients needing enhanced precautions. The test is not intended to identify patients with staphylococcal infections. Results should not be used to guide or monitor treatment for MRSA infections. Specimen Description.[facility]AL [facility] MRSA, DNA, Nasalon [id number], DNA, NasalNegativeNoalNEGMccullough-Hyde Memorial HospitalComment on above:Result Comment: NEGATIVE: MRSA DNA not detected by nucleic acid amplification. Results should be used as an adjunct to nosocomial control efforts to identify patients needing enhanced precautions. The test is not intended to identify patients with staphylococcal infections. Results should not be used to guide or monitor treatment for MRSA infections. Performed By: #### MRSANO #### [facility] Sensor[employer] [address] [place] [address] [phone] Pizza Baker: TRACEY Rayfairfax hospitalchelo Description.NASAL SWABNormalMccullough-Hyde Memorial HospitalComment on above:Performed By: #### MRSANO #### [address] [phone] Pizza Baker: Tony Yanez [facility] AUTO DIFFon [id number] #0.0 103/ulNormal 0.0-0.1The [facility] County HospitalComment on above:Performed By: #### CVDTBH #### [facility] [address] [address] [address] Natalya ArthurBasophils/100 WBC (Bld)0.6 %Normal0.2-2.0[facility] Comment on above:Performed By: #### CVDTBH #### [facility] [address] [address] [address] Natalya Gilliam #0.1 103/ulNormal0.0-0.7The [facility] HospitalComment on above: Performed By: #### CVDTBH #### [facility] [address] [address] [address] Natalya Pearsonosinophils/100 WBC (Bld)1.9 %Normal0.9-7.0[facility] Comment on above:Performed By: #### CVDTBH #### [facility] [address] [place] [address] Dr. Natalya Tylerthrocyte distribution width (RBC) [Ratio]13.1 %Sxagkv83.0-15.0 The [facility] HospitalComment on above:Performed By: #### CVDTBH #### [facility] [address] [place] [address] Dr. Natalya ArthurHematocrit (Bld) [Volume fraction]38.5 %Critically low42.0-54.0 The [facility] HospitalComment on above:Performed By: #### CVDTBH #### [facility] [address] [place] [address] Dr. Natalya ArthurHemoglobin (Bld) [Mass/Vol]12.7 g/dLCritically low14.0-18.0The [facility] HospitalComment on above:Performed By: #### CVDTBH #### [facility] [address] [place] [address] Dr. Natalya Thompson #0.03 10e3/ulNormal0.00-0.03The [facility] HospitalComment on above:Performed By: #### CVDTBH #### [facility] [address] [place] [address] Dr. Natalya Thompson %0.6 %Critically high0.0-0.5The [facility] HospitalComment on above:Performed By: #### CVDTBH #### [facility] [address] [place] [address] Dr. Natalya Rivera #0.8 103/ulCritically low1.2-3.8The [facility] Comment on above:Performed By: #### CVDTBH #### [facility] [address] [place] [address] Dr. Natalya Sanchezhocytes/100 WBC (Bld)15.3 %Critically low20.5-60.0[facility] InstituteComment on above:Performed By: #### CVDTBH #### [facility] [address] [place] [address] Dr. Natalya ReisUAL DIFF REQNONormalThe [facility] HospitalComment on above: Performed By: #### CVDTBH #### [facility] [address] [place] [address] Dr. Natalya Akins (RBC) [Entitic mass]31.0 npQthwmx29.9-34.0The [facility] HospitalComment on above:Performed By: #### CVDTBH #### [facility] [address] [place] [address] Dr. Natalya Kendall (RBC) [Mass/Vol]33.0 g/qDVevmtv53.9-35.2The [facility] HospitalComment on above:Performed By: #### CVDTBH #### [facility] [address] [place] [address] Dr. Natalya Kendall (RBC) [Entitic vol]93.9 eEJwljos52.0-94.0The [facility] HospitalComment on above:Performed By: #### CVDTBH #### [facility] [address] [place] [address] Dr. Natalya Burks #0.4 103/ulNormal0.3-0.8The [facility] HospitalComment on above:Performed By: #### CVDTBH #### [facility] [address] [place] [address] Dr. Natalya Luzocytes/100 WBC (Bld)8.0 %Normal1.7-12.0The [facility] Comment on above:Performed By: #### CVDTBH #### [facility] [address] [place] [address] Dr. Natalya Crowley #3.8 103/ulNormal1.4-6.5The [facility] HospitalComment on above:Performed By: #### CVDTBH #### [facility] [address] [place] [address] Dr. Natalya Whittenutrophils/100 WBC (Bld)73.6 %Vyajyh66.0-75.0The [facility] HospitalComment on above:Performed By: #### CVDTBH #### [facility] [address] [place] [address] Dr. Natalya Sotolet mean volume (Bld) [Entitic vol]10.8 fLNormal9.5-13.5The [facility] HospitalComment on above:Performed By: #### CVDTBH #### [facility] [address] [address] [address] Natalya ArthurPLT100 103/ulCritically lgs282-340Ste [facility] HospitalComment on above:Performed By: #### CVDTBH #### [facility] [address] [address] [address] Natalya ArthurRBC4.10 106/ulCritically low4.70-6.10The [facility] HospitalComment on above:Performed By: #### CVDTBH #### [facility] [address] [address] [address] Natalya ArthurWBC5.2 103/ulNormal4.0-11.0The [facility] HospitalComment on above: Performed By: #### CVDTBH #### [facility] [address] [address] [address] Natalya ArthurCT CSPINE WO CONon [id number] CSPINE WO CONEXAMINATION: CT CSPINE WO CON [...] Electronically authenticated by: ARTHUR LÓPEZ Date: 2021-08-16 17:00NormLake County Memorial Hospital - WestCT FACIAL BONES WO CONTRASTon [id number] acute facial fracture. Soft tissue swelling and ecchymosis of the left face and scalp. [facility] RIS CONSOLIDATEDEXAMINATION: CT OF THE [...] SYSTEM PROVIDED HISTORY: Impact with object riding filling hand TECHNOLOGIST PROVIDED HISTORY: Impact with object riding filling hand Decision Support Exception - unselect if not [...] focus of subcutaneous emphysema left periorbital region. 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 [employer] Work Phone: ct FACIAL BONES WO CONTRASTOrdered By: Augustin Hodges on 35-31-1046[employer] Work Phone: ct HEAD WO CONon [id number] HEAD WO CONCT head without contrast CLINICAL: [...] Electronically authenticated by: SUKH CROFT Date: 2021-08-16 15:37[facility] HEAD WO CONTRASTon [id number] HEAD WO CONTRASTEXAMINATION: CT OF THE HEAD [...] Signed by: Hardeep Godwin MD 08/16/21 Final resultNormalMccullough-Hyde Memorial HospitalMinimal left frontal subarachnoid hemorrhage in 1 of the sulci. No evidence of extra-axial collections. Prominent left frontal and parietal scalp swelling/hemorrhage. The findings were sent to the Radiology Results Communication Center at 9:22 pm on 08/16/2021 to be communicated to a licensed caregiver. [facility] RIS CONSOLIDATEDEXAMINATION: CT OF THE [...] to be communicated to a licensed caregiver. [employer] Work Phone: cT HEAD WO CONTRASTOrdered By: Hardeep Godwin on 09-31-2663[employer] Phone: [phone]-24 PCR (CVDTB)on 01-12-9053PFCC-CoV-2 (COVID- 19) RNA GÓMEZ+probe Ql (Unsp spec)Not detectedNormalNOT DETECTEDThe [facility] HospitalComment on above:Result Comment: This test is not yet approved or cleared by the [place] FDA. When there are no FDA-approved or cleared tests available, and other criteria are met, FDA can make tests available under an emergency access mechanism called an Emergency Use Authorization (EUA). The EUA for this test is supported by the [employer] Specialist of Health and Human Service's (HHS's) declaration [...] consistent with SARS-CoV-2.Performed By: #### CVDTBH #### [facility] [address] [place] [address] Dr. Natalya Colin Panel Informationon [id number] Study observation (narrative)[employer] Phone: pROF CHEM 8 (BAS METB)on 61-64-4951Olgcf gap [Moles/Vol]13.6 mmol/LNormalRiverview Health InstituteComment on above:Performed By: #### CVDTBH #### [facility] [address] [place] [address] Dr. Natalya ArthurCalcium [Mass/Vol]9.0 mg/dLNormal8.5-10.1[facility] Comment on above:Performed By: #### CVDTBH #### [facility] [address] [address] [address] Natalya ArthurChloride [Moles/Vol]107 mmol/RCgchpr20-578Dpl [facility] Comment on above:Performed By: #### CVDTBH #### [facility] [address] [address] [address] Natalya ArthurCO2 [Moles/Vol]24.4 mmol/LCwaezn24.0-32.0[facility] Comment on above:Performed By: #### CVDTBH #### [facility] [address] [address] [address] Natalya ArthurCreatinine [Mass/Vol]1.09 mg/dLNormal0.70-1.30The [facility] HospitalComment on above:Performed By: #### CVDTBH #### [facility] [address] [address] [address] Natalya PearsonGFR-AF VATICAN CITIZEN>60Normal>=60The [facility] HospitalComment on above:Performed By: #### CVDTBH #### [facility] [address] [address] [address] Natalya PearsonGFR-NON AF [place] CITIZEN>60Normal>=60The [facility] HospitalComment on above:Performed By: #### CVDTBH #### [facility] [address] [address] [address] Natalya ArthurGlucose [Mass/Vol]111 mg/dLCritically pptp79-639Nzn [facility] HospitalComment on above:Performed By: #### CVDTBH #### [facility] [address] [address] [address] Natalya ArthurPotassium [Moles/Vol]4.0 mmol/LNormal3.5-5.1The [facility] Comment on above:Performed By: #### CVDTBH #### [facility] [address] [address] [address] Natalya ArthurSodium [Moles/Vol]141 mmol/JUagrsk619-229Oph [facility] Comment on above:Performed By: #### CVDTBH #### [facility] [address] [place] [address] nitrogen [Mass/Vol]21.0 mg/dLCritically high7.0-18.0[facility] InstituteComment on above:Performed By: #### CVDTBH #### [facility] [address] [place] [address] nitrogen/Creatinine [Mass ratio]19.3 mg/mgNoBrown Memorial HospitalComment on above:Performed By: #### CVDTBH #### [facility] [address] [place] [address] Dr. Natalya Dorantes [id number] Coag (PPP) [Relative time]1.12 {INR} NormalThe [facility] HospitalComment on above:Performed By: #### FETIBC, FERR #### [facility] [address] [place] [address] Dr. Natalya Gonzalez GUIDELINESSEE BELOWOhioHealth Grove City Methodist HospitalComment on above:Result Comment: DESIRED INR: 2.0 - 3.0 CONDITIONS NOT LISTED BELOW 2.5 - 3.5 FOR PROSTHETIC HEART VALVE REPLACEMENT 2.5 - 3.5 RECURRENT THROMBOSIS Performed By: #### FETIBC, FERR #### [facility] [address] [place] [address] Dr. Natalya ArthurPT Coag (PPP) [Time]12.0 sCritically high9.0-11.6The [facility] HospitalComment on above:Performed By: #### FETIBC, FERR #### [facility] [address] [place] [address] Dr. Natalya Noriega 10-43-9530qVUP Coag (Bld) [Time]28.6 bLeuwln93.3-36.2The [facility] HospitalComment on above:Performed By: #### FETIBC, FERR #### [facility] [address] [place] [address] Dr. Natalya ArthurIqoqnIGWMX-7-HDTIAZVNUKNrl 22-05-6802Spsox-1-Antitrypsin, Husfk710 mg/lVUfgaml599-208Dpy [facility] HospitalComment on above:Performed By: #### ALPHA-1 #### [facility] [address] [place] [address] Dr. Natalya Hummel EIA W/REFLEX 5 BIOMARKERSon [id number] DirectNegative NormalNegativeThe [facility] HospitalComment on above:Performed By: #### CVDTBH #### [facility] [address] [place] [address] Dr. Natalya ArthurCERULOPLASMINon 63-77-2341Aoivxopkoxcag63.0 mg/aEFgfdse70.0-31.0 The [facility] HospitalComment on above:Performed By: #### CEUROPL #### [facility] [address] [place] [address] Dr. Natalya Guzman MUSCLE ANTIBODYon 64-75-8763Bmdqr (Smooth Muscle) Antibody 25 UnitsCritically high0-19The [facility] HospitalComment on above:Result Comment: Negative 0 - 19 Weak positive 20 - 30 Moderate to strong positive >30 . Actin Antibodies are found in 52-85% of patients with autoimmune hepatitis or chronic active hepatitis and in 22% of patients with primary biliary cirrhosis.Performed By: #### CVDTBH #### [facility] [address] [place] [address] Dr. Natalya Neely AUTO DIFFon [id number] #0.0 103/ulNormal0.0-0.1The [facility] HospitalComment on above:Performed By: #### FETIBC, FERR #### [facility] [address] [place] [address] Dr. Natalya ArthurBasophils/100 WBC (Bld)0.4 %Normal0.2-2.0The [facility] Comment on above:Performed By: #### FETIBC, FERR #### [facility] [address] [place] [address] Dr. Hoang ChangELucía #0.2 103/ulNormal0.0-0.7The [facility] HospitalComment on above: Performed By: #### FETIBC, FERR #### [facility] [address] [place] [address] Dr. Natalya Pearsonosinophils/100 WBC (Bld)4.0 %Normal0.9-7.0[facility] Comment on above:Performed By: #### FETIBC, FERR #### [facility] [address] [place] [address] Dr. Natalya Pearsonrythrocyte distribution width (RBC) [Ratio]13.8 %Oprvws62.0-15.0 The [facility] HospitalComment on above:Performed By: #### FETIBC, FERR #### [facility] [address] [place] [address] Dr. Natalya ArthurHematocrit (Bld) [Volume fraction]41.5 %Critically low42.0-54.0 [facility] InstituteComment on above:Performed By: #### FETIBC, FERR #### [facility] [address] [place] [address] Dr. Natalya ArthurHemoglobin (Bld) [Mass/Vol]13.2 g/dLCritically low14.0-18.0The [facility] HospitalComment on above:Performed By: #### FETIBC, FERR #### [facility] [address] [place] [address] Dr. Natalya Thompson #0.02 10e3/ulNormal0.00-0.03The [facility] HospitalComment on above:Performed By: #### FETIBC, FERR #### [facility] [address] [place] [address] Dr. Natalya Thompson %0.4 %Normal0.0-0.5The [facility] HospitalComment on above: Performed By: #### FETIBC, FERR #### [facility] [address] [place] [address] Dr. Natalya Rivera #0.8 103/ulCritically low1.2-3.8The [facility] Comment on above:Performed By: #### FETIBC, FERR #### [facility] [address] [place] [address] Dr. Natalya Carranzamphocytes/100 WBC (Bld)17.0 %Critically low20.5-60.0The [facility] HospitalComment on above:Performed By: #### FETIBC, FERR #### [facility] [address] [place] [address] Dr. Natalya Esparza DIFF REQNONormalThe [facility] HospitalComment on above: Performed By: #### FETIBC, FERR #### [facility] [address] [place] [address] Dr. Natalya Kendall (RBC) [Entitic mass]30.9 uaUgmsoq08.9-34.0The [facility] HospitalComment on above:Performed By: #### FETIBC, FERR #### [facility] [address] [place] [address] Dr. Natalya Kendall (RBC) [Mass/Vol]31.8 g/gHKxubjs04.9-35.2The [facility] HospitalComment on above:Performed By: #### FETIBC, FERR #### [facility] [address] [place] [address] Dr. Natalya Corona (RBC) [Entitic vol]97.2 fLCritically high80.0-94.0The [facility] HospitalComment on above:Performed By: #### FETIBC, FERR #### [facility] [address] [place] [address] Dr. Natalya Burks #0.5 103/ulNormal0.3-0.8The [facility] HospitalComment on above:Performed By: #### FETIBC, FERR #### [facility] [address] [place] [address] Dr. Natalya Luzocytes/100 WBC (Bld)10.5 %Normal1.7-12.0The [facility] Comment on above:Performed By: #### FETIBC, FERR #### [facility] [address] [place] [address] Dr. Yilan ChangNEUT #3.2 103/ulNormal1.4-6.5The [facility] HospitalComment on above:Performed By: #### FETIBC, FERR #### [facility] [address] [place] [address] Dr. Natalay Whittenutrophils/100 WBC (Bld)67.7 %Cgpklr90.0-75.0The [facility] on above:Performed By: #### FETIBC, FERR #### [facility] [address] [place] [address] Dr. Natalya ArthurPlatelet mean volume (Bld) [Entitic vol]10.7 fLNormal9.5-13.5The [facility] Hospitalment on above:Performed By: #### FETIBC, FERR #### [facility] [address] [place] [address] Dr. Natalya ArthurPLT106 103/ulCritically thi256-222Zyc [facility] on above:Result Comment: smear reviewedPerformed By: #### FETIBC, FERR #### [facility] [address] [place] [address] Dr. Natalya ArthurRBC4.27 106/ulCritically low4.70-6.10The [facility] on above:Performed By: #### FETIBC, FERR #### [facility] [address] [place] [address] Dr. Natalya ArthurWBC4.8 103/ulNormal4.0-11.0The [facility] on above: Performed By: #### FETIBC, FERR #### [facility] [address] [place] [address] Dr. Natalya ArthurFERRITINon 35-61-1450Mftcmxyh [Mass/Vol]94.0 ng/mLNormal 17.9-464.0The [facility] on above:Performed By: #### FETIBC, FERR #### [facility] [address] [place] [address] Dr. Natalya Myers AND TIBCon 07-12-2021% RQMFHXFKEC37.8 %NormalThe [facility] Hospitalment on above:Performed By: #### FETIBC, FERR #### [facility] [address] [address] [address] Natalya Myers [Mass/Vol]106.0 ug/nXZztwhy65.0-181.0[facility] Comment on above:Performed By: #### FETIBC, FERR #### [facility] [address] [place] [address] Dr. Natalya Pickard EDBUSH620.0 ug/oIGbcpgk116.0-497.0[facility] Comment on above:Performed By: #### FETIBC, FERR #### [facility] [address] [place] [address] Dr. Natalya VilledaID PROFILEon 77-11-6954LDUZ-HDL RATIO NORMSEE Parkview HealthComment on above:Result Comment: 3.3 - 4.4 LOW RISK 4.4 - 7.1 AVERAGE RISK 7.1 - 11.0 MODERATE RISK >11.0 HIGH RISKPerformed By: #### LIVER, LIPID #### [facility] [address] [place] [address] Dr. Natalya Benítezesterol [Mass/Vol]139 mg/dLNormal<=200[facility] Comment on above:Performed By: #### LIVER, LIPID #### [facility] [address] [place] [address] Dr. Natalya ArthurCholesterol in HDL [Mass/Vol]58 mg/xNTbbytj07-36Dsc [facility] HospitalComment on above:Performed By: #### LIVER, LIPID #### [facility] [address] [place] [address] Dr. Natalya ArthurCholesterol in LDL [Mass/Vol]58.8 mg/dLOhioHealth Grove City Methodist HospitalComdeckerville community hospital on above:Performed By: #### LIVER, LIPID #### [facility] [address] [place] [address] Dr. Natalya Benítezesterbacilio.total/Cholesterol in HDL [Mass ratio]2.4 {ratio} NormalThe Rod HospitalComment on above:Performed By: #### LIVER, LIPID #### [facility] [address] [address] [address] Natalya Gross NORMAL> or = 60 mg/dl - LOW CARDIOVASCULAR RISK <40 mg/dl - HIGH CARDIOVASCULAR RISKSelect Medical [facility] on above:Performed By: #### LIVER, LIPID #### [facility] [address] [address] [address] Natalya Girard CALC NORMALSEE BELOWNoBrown Memorial HospitalComment on above:Result Comment: <100 mg/dl OPTIMAL 100 - 129 mg/dl NEAR OR ABOVE OPTIMAL 130 - 159 mg/dl BORDERLINE HIGH 160 - 189 mg/dl HIGH >190 mg/dl VERY HIGH Performed By: #### LIVER, LIPID #### [facility] [address] [address] [address] Natalya ArthurTriglyceride [Mass/Vol]111 mg/dLNormal<=150The [facility] Comment on above:Performed By: #### LIVER, LIPID #### [facility] [address] [address] [address] Natalya Mar CALC22.2 mg/dLNoBrown Memorial HospitalComdeckerville community hospital on above: Performed By: #### LIVER, LIPID #### [facility] [address] [address] [address] Natalya Rincon PROFILEon 85-13-3745Qtveykh [Mass/Vol]3.4 g/dLNormal3.4-5.0 The [facility] on above:Performed By: #### LIVER, LIPID #### [facility] [address] [address] [address] Natalya ArthurAlbumin/Globulin [Mass ratio]0.9 {ratio}NormalThe [facility] on above:Performed By: #### LIVER, LIPID #### [facility] [address] [address] [address] Natalya RamirezP [Catalytic activity/Vol]129 U/LCritically losa14-958Sxu [facility] on above:Performed By: #### LIVER, LIPID #### [facility] [address] [address] [address] Natalya Paul [Catalytic activity/Vol]72 U/LCritically ziva11-13Fpx [facility] HospitalComment on above:Performed By: #### LIVER, LIPID #### [facility] [address] [address] [address] Natalya Tovar [Catalytic activity/Vol]57 U/LCritically pedb38-73Fic [facility] HospitalComment on above:Performed By: #### LIVER, LIPID #### [facility] [address] [address] [address] Natalya PalmerI, CONJUGATED0.2 mg/dLNormal0.0-0.3TSt. Mary's Medical Center Comment on above:Performed By: #### LIVER, LIPID #### [facility] [address] [place] [address] Dr. Natalya Palmerirubin [Mass/Vol]0.6 mg/dLNormal0.2-1.3TSt. Mary's Medical Center Comment on above:Performed By: #### LIVER, LIPID #### [facility] [address] [address] [address] Natalya ArthurGlobulin (S) [Mass/Vol]3.9 g/dLOhioHealth Grove City Methodist HospitalComdeckerville community hospital on above:Performed By: #### LIVER, LIPID #### [facility] [address] [place] [address] Dr. Natalya ArthurProtein [Mass/Vol]7.3 g/dLNormal6.1-8.2[facility] Comment on above:Performed By: #### LIVER, LIPID #### [facility] [address] [place] [address] Dr. Natalya ArthurPROTIMEserafin 95-79-5865KMZ Coag (PPP) [Relative time]1.10 {INR} NormalThe [facility] HospitalComdeckerville [facility] on above:Performed By: #### FETIBC, FERR #### [facility] [address] [place] [address] Dr. Natalya EscobarR GUIDELINESSEE BELOWOhioHealth Grove City Methodist HospitalComment on above:Result Comment: DESIRED INR: 2.0 - 3.0 CONDITIONS NOT LISTED BELOW 2.5 - 3.5 FOR PROSTHETIC HEART VALVE REPLACEMENT 2.5 - 3.5 RECURRENT THROMBOSIS Performed By: #### FETIBC, FERR #### [facility] [address] [address] [address] Natalya ArthurPT Coag (PPP) [Time]11.8 sCritically high9.0-11.6The [facility] County HospitalComment on above:Performed By: #### FETIBC, RAFA #### [facility] [address] [address] [address] Natalya ArthurComprehensive Metabolic Panelon 19-78-3520Jrxwqse [Mass/Vol]3.9 g/dLNormal3.6-5.1[facility] SpecialistComment on above:Performed By: #### CMP #### [facility] [address], [place] [id number]/Globulin [Mass ratio]1.4 {ratio}Normal1.0-2.5Nomission hospitaln [facility] SpecialistComment on above:Performed By: #### CMP #### [facility] [address], [place] [id number] [Catalytic activity/Vol]128 U/UUekvme11-671ZtzcrwqeMercy Health Lorain HospitalComdeckerville community hospital on above:Performed By: #### CMP #### [facility] [address], [place] [id number] [Catalytic activity/Vol]45 U/LNormal9-46Norttucson medical centern [facility] SpecialistComment on above:Result Comment: 02/22/2021 Female reference range changed.Performed By: #### CMP #### [facility] [address], [place] [id number] gap [Moles/Vol]15 mmol/ESuzyed52-94Nrsxwxfb [facility] SpecialistComment on above:Result Comment: Effective 03/30/2019 reference range changed.Performed By: #### CMP #### [facility] [address], [place] [id number] [Catalytic activity/Vol]49 U/IGgvz22-81Tfylnpos [facility] [place] [facility] SpecialistComment on above:Performed By: #### CMP #### [facility] [address], [place] [address]Jnvwsrudu [Mass/Vol]0.36 mg/dLNormal0.30-1.20Norttuc[facility] medical centern [facility] [place] [facility] SpecialistComment on above:Performed By: #### CMP #### [facility] [address] [place], [place] [id number]/CREA15 RatioNormal6-22NortKindred HealthcareShipping Agent Comment on above:Performed By: #### CMP #### [facility] [address], [place] [id number] [Mass/Vol]9.2 mg/dLNormal8.6-10.2[facility] SpecialistComment on above:Performed By: #### CMP #### [facility] [address] [facility], [place] [id number] [Moles/Vol]104 mmol/SJwjahn50-682Nolvtvnz [facility] SpecialistComment on above:Performed By: #### CMP #### [facility] [address] [facility], [place] [id number] [Moles/Vol]24 mmol/SWqickw99-29Zbsvaegi [facility] SpecialistComment on above:Performed By: #### CMP #### [facility] [address], [place] [id number] [Mass/Vol]1.0 mg/dLNormal0.7-1.4Norttucson medical centern [facility] SpecialistComment on above:Performed By: #### CMP #### [facility] [address], [place] [id number] mL/min/1.19t9Aqawwu>60Nortt[facility] medical centern [place] [facility] SpecialistComment on above:Performed By: #### CMP #### [facility] [address] [facility]rene[place], [place] [id number] mL/min/1.19z7Wubyvo>60NortRegency [facility] Medical SpecialistComment on above:Performed By: #### CMP #### [facility] [address] [place], [place] [id number] (S) [Mass/Vol]2.7 g/dLNormal1.9-3.7NoKettering Health Preble SpecialistComment on above:Performed By: #### CMP #### [facility] [address], [place] [id number] [Mass/Vol]111 mg/wUPgio98-87Hofduamn [place] [facility] SpecialistComment on above:Result Comment: For FASTING Glucose --- ADA reference ranges: Normal 65-99 mg/dl Prediabetes 100-125 Diabetes >/= 126Performed By: #### CMP #### [facility] [address], [place] [id number] [Moles/Vol]4.5 mmol/LNormal3.5-5.5NoKettering Health Preble SpecialistComment on above:Performed By: #### CMP #### [facility] [address], [place] [id number] [Mass/Vol]6.6 g/dLNormal6.1-8.1NortherCleveland Clinic [facility]view Hospital SpecialistComment on above:Performed By: #### CMP #### [facility] [address], [place] [id number] [Moles/Vol]139 mmol/ZJuhbae136-759Wxinkszd [place] [facility] SpecialistComment on above:Performed By: #### CMP #### [facility] [address], [place] [id number] nitrogen [Mass/Vol]15 mg/dLNormal7-25NoKettering Health Preble SpecialistComment on above:Performed By: #### CMP #### [facility] [address], [place] [id number] - HEPATITIS PANEL ABC GENERAL WITH REFLEXon 06-07-2021 HEPATITIS A AB, KTBGRFog-KsvozrkdWfvsctWUS-ZVHGTLELIbbaialx [place] [facility] SpecialistComment on above:Order Comment: [facility] performed at: QPT, [facility], [address], [address] [facility], [place], [address], Instructor Looping: Sd Sharma MD [facility] Collection Date/Time: [facility] Results Received Date/Time: [facility] Reported Date/Time: [id number] Comment: For additional information, please refer to http://education.Yabbedoo/faq/HHK867 (This link is being provided for informational/ educational purposes only.)Performed By: #### [id number] #### [facility] [address] [place], [place] [address]AWUCVTXLR B CORE AB OABTTTsd-LmrrizrvLyoyluWZN-VJPUBOYKViywbnix [place] [facility] SpecialistComment on above:Order Comment: [facility] performed at: [facility], [employer] [facility], [address] [place] [address], [address] [place] [address], Instructor Looping: Sd Sharma MD [facility] Date/Time: [facility] Results Received Date/Time: [facility] Reported Date/Time: [id number] By: #### [id number] #### [facility] [address] [place], [place] [address]SNUOSSOFQ B SURFACE ANTIBODY WZCbm-VqhdtlqkQfxdzbJWU-ZVHGGZZU [facility] SpecialistComment on above:Order Comment: [facility] performed at: [employer], [employer] [facility], [address] [place] [address], [address] [place] [address], [address] [place] [address], Instructor Looping: Sd Sharma MD [facility] Date/Time: [facility] Results Received Date/Time: [facility] Reported Date/Time: [id number] By: #### [id number] #### [facility] [address] [place], [place] [address]COUKBPQHC B SURFACE JDYINFCJtl-XcbagtabWjbhpfVXM-UYIBGJCAHcqihdsb [facility] SpecialistComment on above:Order Comment: [facility] performed at: [employer], [employer] [facility], [address] [place] [address], [address] [place] [address], [address] [place] [address], Instructor Looping: Sd Sharma MD [facility] Date/Time: [facility] Results Received Date/Time: [facility] Reported Date/Time: [id number] By: #### [id number] #### [facility] [address] [place], [place] [address]HIEQKTYEM C YTQAELDMSco-PjdgiisdHoxjpiDWN-TBBTKNLUVebjcxai [place] [facility] SpecialistComment on above:Order Comment: [facility] performed at: [place], [employer] [facility], [address] [place] [address], [address] [place] [address], [address] [place] [address], Instructor Looping: Sd Sharma MD [facility] Date/Time: [facility] Results Received Date/Time: [facility] Reported Date/Time: [id number] By: #### [id number] #### [facility] [address] [place], [place] [address]NPDKBM TO CUT-OFF0.02Normal<1.00NoKettering Health Preble Specialist Comment on above:Order Comment: [facility] performed at: [place], [employer] [facility], [address] [facility], [address] [place] [address], [address] [place] [address], Instructor Looping: Sd Sharma MD [facility] Date/Time: [facility] Results Received Date/Time: [facility] Reported Date/Time: [id number] Comment: HCV antibody was non-reactive. There is no laboratory evidence of HCV infection. In most cases, no further action is required. However, if recent HCV exposure is suspected, a test for HCV RNA (test code 75037) is suggested. For additional information please refer to http://education.Relify.Unruly/faq/NXT18c1 (This link is being provided for informational/ educational purposes only.)Performed By: #### [id number] #### [facility] [address] [place], [place] [address]Ypebbdfy Blood Count with Auto Diffon 10-84-3889Dzrxfhhpc (Bld) [#/Vol]0.05 10*3/uLNormal0.00-0.20NoKettering Health Preble SpecialistComment on above:Performed By: #### CBCAD, CMP, VITD, TSH reflex FT4, LIPD #### [facility] [address], [place] [id number]/100 WBC (Bld)1.1 %NormalOhiohealth Mansfield Hospital SpecialistComment on above:Performed By: #### CBCAD, CMP, VITD, TSH reflex FT4, LIPD #### [facility] [address], [place] [id number] (Bld) [#/Vol]0.29 10*3/uLNormal0.02-0.50[facility] SpecialistComment on above:Performed By: #### CBCAD, CMP, VITD, TSH reflex FT4, LIPD #### [facility] [address], [place] [id number]/100 WBC (Bld)6.3 %NormalNoKettering Health Preble SpecialistComment on above:Performed By: #### CBCAD, CMP, VITD, TSH reflex FT4, LIPD #### [facility] [address], [place] [id number] distribution width (RBC) [Ratio]12.9 %Normal 11.0-15.0[facility] SpecialistComment on above:Performed By: #### CBCAD, CMP, VITD, TSH reflex FT4, LIPD #### [facility] [address], [place] [id number] (Bld) [Volume fraction]40.4 %Kjkzfe19.5-50.0 [facility] SpecialistComment on above:Performed By: #### CBCAD, CMP, VITD, TSH reflex FT4, LIPD #### [facility] [address], [place] [id number] (Bld) [Mass/Vol]13.1 g/yVTgoxpz80.0-17.1[facility] SpecialistComment on above:Performed By: #### CBCAD, CMP, VITD, TSH reflex FT4, LIPD #### [facility] [address], [place] [id number] (Bld) [#/Vol]0.9 10*3/uLNormal0.9-3.9NortKindred Healthcare SpecialistComment on above:Performed By: #### CBCAD, CMP, VITD, TSH reflex FT4, LIPD #### [facility] [address], [place] [id number]/100 WBC (Bld)18.6 %NormalNoKettering Health Preble SpecialistComment on above:Performed By: #### CBCAD, CMP, VITD, TSH reflex FT4, LIPD #### [facility] [address], [place] [id number] (RBC) [Entitic mass]31.0 twMwwars46.0-33.0NoKettering Health Preble SpecialistComment on above:Performed By: #### CBCAD, CMP, VITD, TSH reflex FT4, LIPD #### [facility] [address], [place] [id number] (RBC) [Mass/Vol]32.4 g/fCPdqtcw09.0-36.0NoKettering Health Preble SpecialistComment on above:Performed By: #### CBCAD, CMP, VITD, TSH reflex FT4, LIPD #### [facility] [address], [place] [id number] (RBC) [Entitic vol]96 vNSlngti99-761Myvvksqq [place] [facility] SpecialistComment on above:Performed By: #### CBCAD, CMP, VITD, TSH reflex FT4, LIPD #### [facility] [address], [place] [id number] (Bld) [#/Vol]0.4 10*3/uLNormal0.2-0.9NortKindred Healthcare SpecialistComment on above:Performed By: #### CBCAD, CMP, VITD, TSH reflex FT4, LIPD #### [facility] [address], [place] [id number]/100 WBC (Bld)8.4 %NormalNoKettering Health Preble SpecialistComment on above:Performed By: #### CBCAD, CMP, VITD, TSH reflex FT4, LIPD #### [facility] [address], [place] [id number] (Bld) [#/Vol]3.0 10*3/uLNormal1.5-7.8NortKindred Healthcare SpecialistComment on above:Performed By: #### CBCAD, CMP, VITD, TSH reflex FT4, LIPD #### [facility] [address], [place] [id number]/100 WBC (Bld)65.4 %NormalNoKettering Health Preble SpecialistComment on above:Performed By: #### CBCAD, CMP, VITD, TSH reflex FT4, LIPD #### [facility] [address], [place] [id number] mean volume (Bld) [Entitic vol]10.20 fLNormal 7.50-12.50NoKettering Health Pre[facility] SpecialistComment on above:Performed By: #### CBCAD, CMP, VITD, TSH reflex FT4, LIPD #### [facility] [address], [place] [id number] (Bld) [#/Vol]141 10*3/vFYvigic338-826Dmljyhis [place] [facility] SpecialistComment on above:Performed By: #### CBCAD, CMP, VITD, TSH reflex FT4, LIPD #### [facility] [address], [place] [id number] (Bld) [#/Vol]4.22 10*6/uLNormal4.20-5.80NoKettering Health Pre[facility] SpecialistComment on above:Performed By: #### CBCAD, CMP, VITD, TSH reflex FT4, LIPD #### [facility] [address], [place] [id number]-UW97.2 dQFkgskc02.0-50.0NoKettering Health Preble Specialist Comment on above:Performed By: #### CBCAD, CMP, VITD, TSH reflex FT4, LIPD #### [facility] [address], [place] [id number] (Bld) [#/Vol]4.6 10*3/uLNormal3.8-11.0NoMcKitrick HospitalComment on above:Performed By: #### CBCAD, CMP, VITD, TSH reflex FT4, LIPD #### [facility] [address], [place] [id number] Metabolic Panelon 54-47-8930Iqjpmcd [Mass/Vol] 4.0 g/dLNormal3.6-5.1[facility] SpecialistComment on above:Performed By: #### CBCAD, CMP, VITD, TSH reflex FT4, LIPD #### [facility] [address], [place] [id number]/Globulin [Mass ratio]1.5 {ratio}Normal1.0-2.5NoMcKitrick HospitalComment on above:Performed By: #### CBCAD, CMP, VITD, TSH reflex FT4, LIPD #### [facility] [address], [place] [id number] [Catalytic activity/Vol]140 U/LZnah62-216YuhxvmmgMcKitrick HospitalComment on above:Performed By: #### CBCAD, CMP, VITD, TSH reflex FT4, LIPD #### [facility] [address], [place] [id number] [Catalytic activity/Vol]63 U/LHigh9-46NoKettering Health Preble SpecialistComment on above:Result Comment: 02/22/2021 Female reference range changed.Performed By: #### CBCAD, CMP, VITD, TSH reflex FT4, LIPD #### [facility] [address], [place] [id number] gap [Moles/Vol]17 mmol/DRhdlbg61-89Orlyjhxc [place] [facility] SpecialistComment on above:Result Comment: Effective 03/30/2019 reference range changed.Performed By: #### CBCAD, CMP, VITD, TSH reflex FT4, LIPD #### [facility] [address], [place] [id number] [Catalytic activity/Vol]62 U/JLpwa68-23OzctwnvgKettering Health Preble SpecialistComment on above:Performed By: #### CBCAD, CMP, VITD, TSH reflex FT4, LIPD #### [facility] [address], [place] [id number] [Mass/Vol]0.41 mg/dLNormal0.30-1.20NoKettering Health Preble SpecialistComment on above:Performed By: #### CBCAD, CMP, VITD, TSH reflex FT4, LIPD #### [facility] [address], [place] [id number]/CREA13 RatioNormal6-22NoKettering Health Preble Specialist Comment on above:Performed By: #### CBCAD, CMP, VITD, TSH reflex FT4, LIPD #### [facility] [address], [place] [id number] [Mass/Vol]9.5 mg/dLNormal8.6-10.2[facility] SpecialistComment on above:Performed By: #### CBCAD, CMP, VITD, TSH reflex FT4, LIPD #### [facility] [address], [place] [id number] [Moles/Vol]106 mmol/FHmtubk46-354Qmaxxfeu [place] [facility] SpecialistComment on above:Performed By: #### CBCAD, CMP, VITD, TSH reflex FT4, LIPD #### [facility] [address], [place] [id number] [Moles/Vol]26 mmol/VMpivai61-50Fxjgvjtj [place] [facility] SpecialistComment on above:Performed By: #### CBCAD, CMP, VITD, TSH reflex FT4, LIPD #### [facility] [address], [place] [id number] [Mass/Vol]0.9 mg/dLNormal0.7-1.4NoKettering Health Preble SpecialistComment on above:Performed By: #### CBCAD, CMP, VITD, TSH reflex FT4, LIPD #### [facility] [address], [place] [id number] mL/min/1.79j9Rqmhrp>60NoKettering Health Preble SpecialistComment on above:Performed By: #### CBCAD, CMP, VITD, TSH reflex FT4, LIPD #### [facility] [address], [place] [id number] mL/min/1.03x0Nwepju>60NortKindred Healthcare SpecialistComment on above:Performed By: #### CBCAD, CMP, VITD, TSH reflex FT4, LIPD #### [facility] [address], [place] [id number] (S) [Mass/Vol]2.6 g/dLNormal1.9-3.7NoKettering Health Preble SpecialistComment on above:Performed By: #### CBCAD, CMP, VITD, TSH reflex FT4, LIPD #### [facility] [address], [place] [id number] [Mass/Vol]89 mg/bSCphngz57-43Hkklalns [place] [facility] SpecialistComment on above:Result Comment: For FASTING Glucose --- ADA reference ranges: Normal 65-99 mg/dl Prediabetes 100-125 Diabetes >/= 126Performed By: #### CBCAD, CMP, VITD, TSH reflex FT4, LIPD #### [facility] [address], [place] [id number] [Moles/Vol]5.0 mmol/LNormal3.5-5.5NoKettering Health Pre[facility] SpecialistComment on above:Performed By: #### CBCAD, CMP, VITD, TSH reflex FT4, LIPD #### [facility] [address], [place] [id number] [Mass/Vol]6.6 g/dLNormal6.1-8.1NortherCleveland Clinic [facility] SpecialistComment on above:Performed By: #### CBCAD, CMP, VITD, TSH reflex FT4, LIPD #### [facility] [address], [place] [id number] [Moles/Vol]143 mmol/KQvhqei430-955Dazdmnqm [place] [facility] SpecialistComment on above:Performed By: #### CBCAD, CMP, VITD, TSH reflex FT4, LIPD #### [facility] [address], [place] [id number] nitrogen [Mass/Vol]12 mg/dLNormal7-25Norttucson medical centern [facility] SpecialistComment on above:Performed By: #### CBCAD, CMP, VITD, TSH reflex FT4, LIPD #### [facility] [address], [place] [id number] Panelon 77-27-9548Phkjwffpdsr [Mass/Vol]135 mg/dLNormal 125-200NortKindred Healthcare SpecialistComment on above:Result Comment: Low risk < 200mg/dL Borderline risk 201-239 mg/dl High risk > or equal to 240Performed By: #### CBCAD, CMP, VITD, TSH reflex FT4, LIPD #### [facility] [address], [place] [id number] in HDL [Mass/Vol]44 mg/dLNormal>40NoKettering Health Preble SpecialistComment on above:Result Comment: High Cardiovascular Risk HDL <40 mg/dL Low Cardiovascular Risk HDL > or equal to 60 mg/dlPerformed By: #### CBCAD, CMP, VITD, TSH reflex FT4, LIPD #### [facility] [address], [place] [id number] in LDL [Mass/Vol]65 mg/dLNormalNortKindred Healthcare SpecialistComment on above:Result Comment: LDL ATP III CLASSIFICATION LDL less than 100 mg/dl Optimal LDL 100-129 mg/dl Near or above optimal LDL 130-159 Borderline high LDL 160-189 High LDL greater than 189 mg/dl Very HighPerformed By: #### CBCAD, CMP, VITD, TSH reflex FT4, LIPD #### [facility] [address], [place] [id number] in VLDL [Mass/Vol]26 mg/dLNormalNorthern [place] Medical SpecialistComment on above:Performed By: #### CBCAD, CMP, VITD, TSH reflex FT4, LIPD #### [facility] [address], [place] [id number].total/Cholesterol in HDL [Mass ratio]3 {ratio} NormalNortMercy Health Lorain HospitalComment on above:Performed By: #### CBCAD, CMP, VITD, TSH reflex FT4, LIPD #### [facility] [address], [place] [id number] [Mass/Vol]130 mg/bDFdowqt48-006ShjoeekxMercy Health Lorain HospitalComment on above:Result Comment: TRIG ATPIII CLASSIFICATIONS TRIG less than 150 mg/dl Normal TRIG 150-199 mg/dl Borderline High TRIG 200-500 mg/dl High TRIG greather than 500 mg/dl Very HighPerformed By: #### CBCAD, CMP, VITD, TSH reflex FT4, LIPD #### [facility] [address], [place] [id number] SCREEN (MEDICARE)on 18-92-0787TZRT7.983 ng/mLNormal<4.000 [facility] Medical CenterComment on above:Result Comment: PSA Test Method: ECLIA/Mick e 601Performed By: #### PSA MC #### [facility] [address], [place] [id number] w/ Reflex to Free T4on 94-25-5345FLY8.150 uIU/mLNormal 0.400-4.500NoMcKitrick HospitalComdeckerville community hospital on above:Performed By: #### CBCAD, CMP, VITD, TSH reflex FT4, LIPD #### [facility] [address], [place] [id number] D 25-OHon 14-61-1792IEL D 25 OH32 ng/mlNormal>29 [facility] Medical CenterComment on above:Result Comment: Vitamin D Status Deficiency <20 ng/mL Insufficiency 20-29 ng/mL Optimal 30-100 ng/mL Possible Toxicity >=150 ng/mLPerformed By: #### CBCAD, CMP, VITD, TSH reflex FT4, LIPD #### [facility] [address], [place] [id number]-44 PCR ([facility]AR[facility])on 91-28-8399LRID-CoV-2 (COVID-19) RNA GÓMEZ+probe Ql (Unsp spec)Not detectedNormalNOT DETECTEDThe [facility] Comment on above:Result Comment: This test is not yet approved or cleared by the [place] FDA. When there are no FDA-approved or cleared tests available, and other criteria are met, FDA can make tests available under an emergency access mechanism called an Emergency Use Authorization (EUA). The EUA for this test is supported by the Software [employer] System Specialist of Health and Human Service's (HHS's) declaration [...] with SARS-CoV-2.Performed By: #### FETIBC, FERR #### [facility] [address] [place] [address] Dr. Natalya Neely AUTO DIFFon 06-99-2412TKQJ #0.0 103/ulNormal0.0-0.1R[facility]view Health InstituteComment on above:Performed By: #### CBC #### [facility] [address] [place] [address] Dr. Natalya ArthurBasophils/100 WBC (Bld)0.3 %Normal0.2-2.0The [facility] Comment on above:Performed By: #### CBC #### [facility] [address] [place] [address] Dr. Natalya Gilliam #0.0 103/ulNormal0.0-0.7The [facility] County HospitalComment on above: Performed By: #### CBC #### [facility] [address] [place] [address] Dr. Natalya Pearsonosinophils/100 WBC (Bld)0.1 %Critically low0.9-7.0The [facility] County HospitalComment on above:Performed By: #### CBC #### [facility] [address] [place] [address] Dr. Natalya Pearsonrythrocyte distribution width (RBC) [Ratio]13.2 %Jmchws03.0-15.0 The [facility] HospitalComment on above:Performed By: #### CBC #### [facility] [address] [place] [address] Dr. Natalya ArthurHematocrit (Bld) [Volume fraction]46.5 %Gsscds63.0-54.0The [facility] HospitalComment on above:Performed By: #### CBC #### [facility] [address] [place] [address] Dr. Natalya ArthurHemoglobin (Bld) [Mass/Vol]15.2 g/hFNythrc82.0-18.0The [facility] HospitalComment on above:Performed By: #### CBC #### [facility] [address] [place] [address] Dr. Natalya Thompson #0.04 10e3/ulCritically high0.00-0.03The [facility] Comment on above:Performed By: #### CBC #### [facility] [address] [place] [address] Dr. Natalya Thompson %0.3 %Normal0.0-0.5The [facility] HospitalComment on above: Performed By: #### CBC #### [facility] [address] [place] [address] Dr. Natalya CarranzaMPH #1.2 103/ulNormal1.2-3.8The [facility] HospitalComment on above:Performed By: #### CBC #### [facility] [address] [place] [address] Dr. Natalya Craranzamphocytes/100 WBC (Bld)10.3 %Critically low20.5-60.0The [facility] HospitalComment on above:Performed By: #### CBC #### [facility] [address] [address] [address] Natalya Esparza DIFF REQNONormalThe [facility] County HospitalComment on above: Performed By: #### CBC #### [facility] [address] [place] [address] Dr. Natalya Kendall (RBC) [Entitic mass]31.0 cwSdeiao98.9-34.0The [facility] HospitalComment on above:Performed By: #### CBC #### [facility] [address] [place] [address] Dr. Natalya Kendall (RBC) [Mass/Vol]32.7 g/oGDnsyfh17.9-35.2The [facility] HospitalComment on above:Performed By: #### CBC #### [facility] [address] [place] [address] Dr. Natalya Kendall (RBC) [Entitic vol]94.9 fLCritically high80.0-94.0The [facility] HospitalComment on above:Performed By: #### CBC #### [facility] [address] [place] [address] Dr. Natalya Burks #1.1 103/ulCritically high0.3-0.8ThHarrison Community Hospital Comment on above:Performed By: #### CBC #### [facility] [address] [place] [address] Dr. Natalya Luzocytes/100 WBC (Bld)9.2 %Normal1.7-12.0[facility] Comment on above:Performed By: #### CBC #### [facility] [address] [place] [address] Dr. Natalya Crowley #9.6 103/ulCritically high1.4-6.5ThHarrison Community Hospital Comment on above:Performed By: #### CBC #### [facility] [address] [place] [address] Dr. Natalya Whittenutrophils/100 WBC (Bld)79.8 %Critically high43.0-75.0The [facility] HospitalComment on above:Performed By: #### CBC #### [facility] [address] [address] [address] Natalya Watson mean volume (Bld) [Entitic vol]10.3 fLNormal9.5-13.5The [facility] HospitalComment on above:Performed By: #### CBC #### [facility] [address] [place] [address] Dr. Natalya ArthurPLT126 103/ulCritically vmm272-391Plw [facility] HospitalComment on above:Performed By: #### CBC #### [facility] [address] [place] [address] Dr. Natalya ArthurRBC4.90 106/ulNormal4.70-6.10The [facility] Hospitalment on above:Performed By: #### CBC #### [facility] [address] [place] [address] Dr. Natalya ArthurWBC12.1 103/ulCritically high4.0-11.0The [facility] on above:Performed By: #### CBC #### [facility] [address] [place] [address] Dr. Natalya Byrnes URINE PROFILEon 21-28-0052Dnarusxma Ql (U)NegativeNormal NEGATIVERiverview Health InstituteComdeckerville community hospital on above:Performed By: #### HARLEY UMICRO #### [facility] [address] [place] [address] Dr. Natalya ArthurClarity (U)CLEARNormalCLEARThe [facility]Comdeckerville [facility] on above: Performed By: #### HARLEY UMICRO #### [facility] [address] [place] [address] Dr. Natalya Singh (U)YELLOWNormalYELLOWRiverview Health InstituteComdeckerville community hospital on above: Performed By: #### HARLEY UMICRO #### [facility] [address] [place] [address] Dr. Natalya Fitzgerald micrscopic examination will be performed if indicated. NormalThe [facility] HospitalComdeckerville [facility] on above:Performed By: #### ERUR, UMICRO #### [facility] [address] [address] [address] Natalya ArthurGlucose Ql (U)NegativeNormalNEGATIVERiverview Health InstituteComment on above:Performed By: #### ROHAN SOUZARO #### [facility] [address] [address] [address] Natalya ArthurHemoglobin Ql (U)LARGEAbnormalNEGATIVEThe [facility] Comment on above:Performed By: #### MICK SOUZA #### [facility] [address] [address] [address] Natalya ArthurKetones Ql (U)NegativeNormalNEGATIVERiverview Health InstituteComment on above:Performed By: #### MICK SOUZA #### [facility] [address] [place] [address] Dr. Natalya ArthurLEUKOCYTESNegativeNormalNEGATIVEThe [facility] HospitalComment on above:Performed By: #### MICK SOUZA #### [facility] [address] [place] [address] Dr. Natalya ArthurNitrite Ql (U)NegativeNormalNEGATIVERiverview Health InstituteComment on above:Performed By: #### MICK SOUZA #### [facility] [address] [place] [address] Dr. Natalya ArthurpH (U)6.0 [pH]Normal5-9The [facility] HospitalComment on above: Performed By: #### MICK SOUZA #### [facility] [address] [place] [address] Dr. Natalya ArthurProtein (U) [Mass/Vol]100 mg/dLAbnormalNEGATIVE/ TRACEThe [facility] HospitalComment on above:Performed By: #### MICK SOUZA #### [facility] [address] [place] [address] Dr. Natalya ArthurSPEC GRAVITY>=1.738Oqqxiytc8.005-<=1.025The [facility] Comment on above:Performed By: #### MICK SOUZA #### [facility] [address] [place] [address] Dr. Natalya Cota MICRO INDINDICATEDNoCentervillee [facility] HospitalComment on above: Performed By: #### MICK SOUZA #### [facility] [address] [place] [address] Dr. Natalya ArthurUrobilinogen Qn (U)0.2 {Vonnie'U}/dLNormal0.2 - 1.0The [facility] HospitalComment on above:Performed By: #### MICK SOUZA #### [facility] [address] [place] [address] Dr. Natalya ArthurLACTATE/LACTIC ACIDon 63-23-5164Lwkknxc [Moles/Vol]1.7 mmol/L Normal0.7-2.0The [facility] HospitalComdeckerville [facility] on above:Performed By: #### CVDTBH #### [facility] [address] [place] [address] Dr. Natalya ArthurLIPASEon 99-23-1484Gmojvj [Catalytic activity/Vol]143.0 U/LNormal 23.0-300.0The [facility] HospitalComment on above:Performed By: #### ROMYTBH #### [facility] [address] [place] [address] Dr. Natalya Pozo 14(COMP METB)on 04-82-8642Mblgrlx [Mass/Vol]3.6 g/dLNormal 3.5-5.0The [facility] HospitalComment on above:Performed By: #### CVDTBH #### [facility] [address] [place] [address] Dr. Natalya ArthurAlbumin/Globulin [Mass ratio]0.8 {ratio}NormalThe [facility] HospitalComdeckerville community hospital on above:Performed By: #### CVDTBH #### [facility] [address] [place] [address] Dr. Natalya ArthurALP [Catalytic activity/Vol]108 U/ACwgbpt81-811Knt [facility] HospitalComment on above:Performed By: #### CVDTBH #### [facility] [address] [address] [address] Natalya RamirezT [Catalytic activity/Vol]65 U/QSlcpsr70-79Myp [facility] HospitalComment on above:Performed By: #### CVDTBH #### [facility] [address] [place] [address] Dr. Natalya ArthurAnion gap [Moles/Vol]13.9 mmol/LNormalRiverview Health Institute Comment on above:Performed By: #### CVDTBH #### [facility] [address] [place] [address] Dr. Natalya ArthurAST [Catalytic activity/Vol]42 U/CCjhhsp75-61Upl [facility] HospitalComment on above:Performed By: #### CVDTBH #### [facility] [address] [place] [address] Dr. Natalya ArthurBilirubin [Mass/Vol]1.0 mg/dLNormal0.2-1.3TSt. Mary's Medical [facility] Comment on above:Performed By: #### CVDTBH #### [facility] [address] [place] [address] Dr. Natalya ArthurCalcium [Mass/Vol]9.7 mg/dLNormal8.4-10.2[facility] Comment on above:Performed By: #### CVDTBH #### [facility] [address] [place] [address] Dr. Natalya ArthurChloride [Moles/Vol]100 mmol/UHovvqd35-737Fjn [facility] Comment on above:Performed By: #### CVDTBH #### [facility] [address] [place] [address] Dr. Natalya ArthurCO2 [Moles/Vol]28.2 mmol/REqlqpa88.0-30.0The [facility] Comment on above:Performed By: #### CVDTBH #### [facility] [address] [place] [address] Dr. Natalya ArthurCreatinine [Mass/Vol]1.18 mg/dLNormal0.66-1.25The [facility] HospitalComment on above:Performed By: #### CVDTBH #### [facility] [address] [address] [address] Natalya PearsonGFR-AF VATICAN CITIZEN>60Normal>=60The [facility] HospitalComment on above:Performed By: #### CVDTBH #### [facility] [address] [address] [address] Natalya PearsonGFR-NON AF VATICAN CITIZEN=60Normal>=60The [facility] HospitalComment on above:Performed By: #### CVDTBH #### [facility] [address] [address] [address] Natalya ArthurGlobulin (S) [Mass/Vol]4.5 g/dLNormalThe [facility] HospitalComment on above:Performed By: #### CVDTBH #### [facility] [address] [place] [address] Dr. Natalya ArthurGlucose [Mass/Vol]121 mg/dLCritically wbvm17-963Qyn [facility] HospitalComment on above:Performed By: #### CVDTBH #### [facility] [address] [place] [address] Dr. Natalya ArthurPotassium [Moles/Vol]4.1 mmol/LNormal3.4-5.0The [facility] Comment on above:Performed By: #### CVDTBH #### [facility] [address] [place] [address] Dr. Natalya ArthurProtein [Mass/Vol]8.1 g/dLNormal6.1-8.2The [facility] Comment on above:Performed By: #### CVDTBH #### [facility] [address] [place] [address] Dr. Natalya ArthurSodium [Moles/Vol]138 mmol/XEypfrm951-404Bal [facility] Comment on above:Performed By: #### CVDTBH #### [facility] [address] [place] [address] Dr. Natalya ArthurUrea nitrogen [Mass/Vol]17.0 mg/dLNormal9.0-20.0The [facility] HospitalComment on above:Performed By: #### CVDTBH #### [facility] [address] [address] [address] nitrogen/Creatinine [Mass ratio]14.4 mg/mgOhioHealth Grove City Methodist HospitalComment on above:Performed By: #### CVDTBH #### [facility] [address] [place] [address] Dr. Natalya Dallas, HIGH SENSITIVITYon 99-31-3321EMNZME66.0 pg/mLCritically high4.0-42.2The [facility] Hospitalment on above:Result Comment: CUT-OFF POINTS HAVE BEEN ESTABLISHED BASED ON THE FOURTH UNIVERSAL DEFINITIONS OF MYOCARDIAL INFARCTION. THE UPPER REFERENCE LIMIT (URL) OF TROPONIN, DEFINED THE 99TH PERCENTILE OF cTnI DISTRIBUTION IN A REFERENCE POPULATION, HAS BEEN CONFIRMED THE DECISION THRESHOLD FOR [place] DIAGNOSIS.Performed By: #### CVDTBH #### [facility] [address] [place] [address] Dr. Natalya Kemp MICROSCOPIC ONLYon 11-09-4474TZNCJGFIX CRYSTALSFEWOhioHealth Grove City Methodist HospitalComment on above:Performed By: #### HARLEY UMICRO #### [facility] [address] [place] [address] Dr. Natalya BarnardTRACEAbnormalNONE SEENRiverview Health InstituteComdeckerville community hospital on above:Performed By: #### HARLEY UMICRO #### [facility] [address] [place] [address] Dr. Natalya Barnard identified Cx Nom (U)NOT INDICATEDNoBrown Memorial HospitalComment on above:Performed By: #### ERUR UMICRO #### [facility] [address] [place] [address] Dr. Natalya Zavaleta SEENNormalNONE SEENRiverview Health InstituteComdeckerville community hospital on above:Performed By: #### ERUR, UMICRO #### [facility] [address] [place] [address] Dr. Natalya Lealystals LM Nom (Urine sed)SEENAbnoalNONE SEENRiverview Health InstituteComdeckerville community hospital on above:Performed By: #### ERUR UMICRO #### [facility] [address] [address] [address] Hoang ChangEpithelial cells LM Ql (Urine sed)FEWAbnormalNONE SEEN /RAREThe [facility] HospitalComdeckerville community hospital on above:Performed By: #### ERUR, UMICRO #### [facility] [address] [address] [address] Natalya ArthurMUCOUSLARGEAbnormalNONE SEENThe [facility] HospitalComment on above:Performed By: #### ERUR, UMICRO #### [facility] [address] [address] [address] Natalya ArthurEqccmRKF64-89Gxarydsp3-8Oum [facility] HospitalComment on above: Performed By: #### ERUR, UMICRO #### [facility] [address] [address] [address] Natalya ArthurWBC0-2AbnormalNONE SEENThe [facility] HospitalComment on above: Performed By: #### ERUR, UMICRO #### [facility] [address] [address] [address] Natalya ArthurUS SINGLE QUAD RT UPPERon 82-40-4531AC SINGLE QUAD RT UPPER EXAMINATION: US SINGLE [...] Electronically authenticated by: STEPHEN ARBOLEDA Date: 2021-02-03 19:08[facility] Methodist HospitalXR CHEST 1 Von 12-76-8976JP CHEST 1 VEXAMINATION: XR CHEST 1 V [...] Electronically authenticated by: STEPHEN ARBOLEDA Date: 2021-02-03 19:22[facility] Methodist HospitalCardiovascular Lab Reporton [id number] Lab Report [facility] MR #: [id number] Department of Physician: Artis Horner MEric Division of Service Date: 10/30/2018 Cardiology Birthdate: 1945 Adult Cardiovascular Room #: [address] [place] [address] Cardiovascular Laboratory Report CLINICAL PRESENTATION: Pankaj Payne is a 73-year-old male with past medical history significant for CAD, status post prior PCI of the left circumflex coronary artery in 02/2018; hypertension; hyperlipidemia; hypothyroidism. The [facility] [place] [facility] He reports worsening fatigue [...] noted. 4. Outpatient followup with Dr. Tenorio, [place] [facility]. PROCEDURES: Coronary angiogram, left heart catheterization, [...] infiltrated over the right radial artery. A 6-Pakistani Terumo Glidesheath slender was placed in the right radial artery. The radial anti-vasospasm cocktail of verapamil 2.5 mg and nitroglycerin 200 mcg was administered through the sheath. All catheter exchanges were made over the Storm Exchange guidewire. Initially, a 5-Pakistani [place] catheter was used to engage the coronary arteries. The [place] catheter engaged the right coronary artery, but did not engage the left main coronary artery well. I then exchanged over wire to a 6-Pakistani JL3.5 catheter which engaged the left main coronary artery. Coronary angiogram was performed in multiple orthogonal views using hand injection of contrast. At this point, it was apparent that the right PDA had intermediate stenosis, I elected to proceed with IFR evaluation. The [place] Verrata wire was zeroed outside of the body and then normalized at the catheter guide tip. Heparin anticoagulation was used for this procedure and the ACT was maintained greater than 200 seconds. The [place] Verrata wire was then manipulated to the [...] Schafer M.D. Date Trans: 10/31/2018 05:07 Rishabh/katelin DN_JN:[id number] cc: Frantz Conley M.D. [address] [id number] Frantz Tenorio M.D. [address] [id number] - TrumbullOperative Reporton [id number] ReportDate of Surgery: 02/25/2018SURGEON: Hardeep Fraga D.O.PREOPERATIVE [...] a [facility] A cystotome was fashioned out of a [...] day for postoperative care.Hardeep Fraga D.O.glsDictated: 02/25/2018 #[id number]: 02/25/2018 #[id number]: Sera Cabrera [facility] Health SystemComment on above:Result Comment: Electronically Signed By: Hardeep Fraga DO\.br\Date and Time Signed: 03/03/18 12:57 EST Cardiovascular Lab Reporton [id number] Lab ReportUnWyandot Memorial Hospital [facility] MR #: [id number] Department of Physician: Artis Pinedo M.D. Division of Service Date: 02/28/2018 Cardiology Birthdate: 1945 Adult Cardiovascular Room #: [address] [place] [address] Cardiovascular Laboratory Report FINAL IMPRESSION: 1. Successful [...] fashion. Using a modified Seldinger technique, a 5-Pakistani micropuncture was placed in right internal jugular vein. This was upsized to a regular 6-Pakistani sheath. Then, a 6-Pakistani Trinh was used for right heart catheterization. The right heart catheterization was performed. Access of the right radial artery under ultrasound guidance and in the right ulnar artery under ultrasound guidance a 6-Pakistani sheath was placed and then used a 6-Pakistani JL3.5 and JR5 catheter for coronary angiography. After baseline angiography was performed, the case was discussed by his referring nylon hot wire cutter, Dr. Tenorio, as well as with the patient's family. Also given multiple lesions in right , circumflex coronary artery and a distal LAD lesion, we also discussed CABG as an option. 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 We decided to treat circumflex. 6-Pakistani XB 3.0 guide was used to engage the left main coronary ostium. A 0.014 [place] wire was passed across the proximal circumflex into the 1st obtuse marginal branch. Predilatation was performed using a 2.5 x 15 balloon. Then, we deployed a 2.5 x 16 Synergy stent. This was post-dilated with a 2.75 x 15 noncompliant at 24 atmospheres. Final angiography showed good stent result in the proximal circumflex into the 1st obtuse marginal branch. The northwestern shoshone circumflex stayed open. There were no complications. [...] Barahona M.D. Date Trans: 03/01/2018 03:16 A/katelin DN_JN:[id number] cc: JYOTI Villalobos [address] [facility] [address] Frantz Conley M.D. [address] [id number] Frantz Tenorio M.D. [address] [facility] [address]UxjngeVgqSelect Medical Specialty Hospital - TrumbullHistory and Physicalon 90-04-5778Hqdhome and PhysicalMR#: [id number] [facility] Pt. Name: Pankaj Payne Admitted: [...] Lopez M.D. Date Trans: 02/28/2018 04:44 P/katelin DN_JN:[id number] Medical Specialty Hospital - TrumbullCoding Summary. 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 Name: PANKAJ PAYNE/Sex: 1945 Male Med Rec #: [id number] Physician: Hardeep Fraga DO Financial #: [id number] Pt. Type: A Room/Bed: [address] [address] Admit/Disch: 02/25/18 08:23:00 - 02/25/18 12:00:00 Institution: [...] RN, Sussy Role Performed Surgeon - Primary Plant Nursery Worker - Primary Plant Nursery Worker - Primary Time In 02/25/18 11:00:00 02/25/1811:00:00 [...] tissue Entry 1 Skin Integrity Warm, Dry, Bartolo, Unable Outcomes Met? Yes to Visualize Last [...] Instruments Status Correct Correct Time By Ruffing ULTIMATE HOOPS TRAINER, Zoila E Ruffing ULTIMATE HOOPS TRAINER, Zoila E Outcomes Met? Yes Yes Last [...] RN Patient Status Stable Skin. Condition Warm, Bartolo, Dry Airway Maintenance Oxygen in Use? No [...] safely administered during the perioperative period For Zhang-Cobb please see scanned medication reconcilliation form for medications used at the field during the procedure. Implant Log FT Pre-Care Text: Records devices implanted during the operative or invasive procedure Entry 1 Implant/Explant Implant Implant Identification Description ROSENDA [id number] 12.50MM Serial Number [id number] 13.50 [[id number]] Lot Number [id number] Construction Estimator FT-[employer]USCH [employer] LOM[employer] Catalog ?# [id number][F] Expiration Date 05/23/19 Usage Data Implant Site right eye Quantity 1 Outcomes Met? Yes Last Modified By: Arnold Moreno RN 02/25/18 11:08:01 Post-Care Text: The patient isfree from signs and symptoms of injury caused by extraneous objects Case Comments Finalized By: Elayne Dave CST Document Signatures Signed By: Arnold Moreno RN 02/25/18 11:18 Elayne Agosto CST 02/26/18 14:08NoUniversity Hospitals Beachwood Medical CenterHistory and Physicalon 18-35-3476Mtyyyzf and PhysicalHOSPITAL REGULATIONS: ALL Positive Important Negative [...] so in the near future.Viola CabreraaekDictated: 02/24/2018 #[id number] 02/25/2018 #[id number]: Hardeep Fraga D.O.[facility] Cleveland-FairhillComment on above:Result Comment: Electronically Signed By: Hardeep Fraga DO\.br\Date and Time Signed: 02/25/18 10:24 ESTInpatient Patient Summaryon 04-80-8385Rtvwtflfz Patient SummarySt. Vincent HospitalClinical Discharge InstructionsPERSON INFORMATION Name: PANKAJ PAYNE PHYSICIANS Admitting Physician: Hardeep Fraga DOAttending Physician: Hardeep Fraga DO PCP: FRANTZ CONLEY MD BDischarge Diagnosis: Cataract Comment: PATIENT EDUCATION INFORMATIONInstructions:Medication Leaflets:Follow up:With: Address: When: Hardeep Fraga [facility] [address], [address], [facility] [address] [place] [address] Business (1) Within 1 to 2 days MEDICATION LISTComment:[facility]hillMain OR PACU II Recordon [id number] OR PACU II Record PACU Phase II Document Type FT Summary Primary Physician: Hardeep Fraga DO Finalized Date/Time: 02/25/18 12:33:41 Pt. Name: PANKAJ PAYNE Rishabh Díaz/Sex: 1945 Male Med Rec #: [id number] Physician: Hardeep Fraga DO Financial #: [id number] Pt. Type: A Room/Bed: [place] [address] Admit/Disch: 02/25/18 08:23:55 - Institution: Case Times [...] Signatures Signed By: Lissa Pope RN 02/25/18 12:33NoUniversity Hospitals Beachwood Medical CenterMain OR Preoperative Recordon [id number] OR Preoperative RecordPreOp Document Type FT Summary Primary Physician: Hardeep Fraga DO Finalized Date/Time: 02/25/18 11:05:22 Pt. Name: PAYNEPANKAJ/Sex: 1945 Male Med Rec #: [id number] Physician: Hardeep Fraga DO Financial #: [id number] Pt. Type: A Room/Bed: [place] [address] Admit/Disch: 02/25/18 08:23:55 - Institution: Case Times [...] Signatures Signed By: Arnold Moreno RN 02/25/18 11:05[facility]hillMain OR Preoperative RecordHolding Area Document Type FT Summary Primary Physician: Hardeep Fraga DO Finalized Date/Time: 02/25/18 08:46:23 Pt. Name: PANKAJ PAYNE /Sex: 1945 Male Med Rec #: [id number] Physician: Hardeep Fraga DO Financial #: [id number] Pt. Type: A Room/Bed: [place] [address] Admit/Disch: 02/25/18 08:23:55 - Institution: Case Times [...] Signatures Signed By: Lissa Pope RN 02/25/18 08:46NoUniversity Hospitals Beachwood Medical CenterPatient Education - Texton 02-25-2018 Patient Education - [facility] LimaProgress Note-Physician on 72-95-0141Zkkpjeb mass concPatient: PANKAJ PAYNE Age: 72 years Sex: Male : 1945 Associated Diagnoses: None Author: Hardeep Fraga DO Postoperative Information Date/ Time: 02/25/18 11 :17:00 Preoperative Diagnosis: Senile Cataract - OD . Postoperative Diagnosis: same . Procedure: Cataract Extraction with IOL placement - OD. Anesthesia Method: Local. Performed by: Hardeep Fraga DO. Specimens Removed: none . Estimated Blood Loss: 0 ml. Complications: None.[facility] Cleveland-FairhillComment on above:Result Comment: Electronically Signed By: Hardeep Fraga DO\.br\Date and Time Signed: 02/25/18 11:17 ESTOperative Reporton [id number] ReportDate of Surgery: 02/11/2018SURGEON: Hardeep Fraga D.O.PREOPERATIVE [...] day for postoperative care.Hardeep Fraga D.O.lkrDictated: 02/11/2018 #[id number]: 02/12/2018 #[id number]: JonathanD. Rosie D.O.Summa HealthComment on above:Result Comment: Electronically Signed By: Hardeep Fraga DO\.br\Date and Time Signed: 02/17/18 08:38 EST Coding Summary.on 74-31-4298Tjdffq Summary.CODING DATE: 02/12/2018 FINAL [facility] STATUS: Home (Routine DC) PAYOR: Medicare APC DESCRIPTION 5491 Level 1 Intraocular Procedures ADMIT DX: REASON FOR VISIT DX: H25.13 Age-related nuclear cataract, bilateral FINAL DX: PRINCIPAL: H25.13 Age- related nuclear cataract, bilateral SECONDARY: H25.043 Posterior subcapsular polar age-related cataract, bilateral E03.9 Hypothyroidism, unspecified PYMT PROC APC STAT DESCRIPTION DOCTOR NAME DATE 462450 4371 J1 Extracapsular cataract Hardeep Fraga DO 02/11/2018 [...] Abbasi Revised Date Saved: 02/12/2018 11:05 [facility] Recordon [id number] OR Preoperative RecordHolding Area Document Type FT Summary Primary Phys[place] [id number] Finalized Date/Time: 02/12/18 07:26:59 Pt. Name: PAYNE, JACK Rishabh Landaverde/Sex: 1945 Male Med Rec #: [id number] Physician: Hardeep Fraga DO Financial #: [id number] Pt. Type: A Room/Bed: [place] [address] Admit/Disch: 02/11/18 08:31:00 - 02/11/18 12:00:00 Institution: [...] RN, Andrea Document Signatures Signed By: HEMANT Madconald RN, Andrea 02/12/18 07:26[facility]hillHistory and Physicalon 90-42-8198Hpzbmbl and PhysicalHOSPITAL REGULATIONS: ALL Positive Important Negative [...] in the near future.Hardeep Fraga D.O.aekDictated: 02/10/2018 #[id number] 02/11/2018 #[id number]: Hardeep Fraga D.O.[facility]-FairhillComment on above:Result Comment: Electronically Signed By: Hardeep Fraga DO\.br\Date and Time Signed: 02/11/18 08:10 ESTInpatient Patient Summaryon [id number] Patient SummarySt. Vincent HospitalClinical Discharge InstructionsPERSON INFORMATION Name: PAYNE, JACK Rishabh PHYSICIANS Admitting Physician: Hardeep Fraga DOAttending Physician: Hardeep Fraga DO PCP: FRANTZ CONLEY MD BDischarge Diagnosis: Cataract Comment: PATIENT EDUCATION INFORMATIONInstructions:ROSIE- After Surgery Eye (Custom)Medication Leaflets:Follow up:With: Address: When: Hardeep Fraga [facility] [address] [facility], [facility] [address] [phone] Business (1) Within 1 to 2 days MEDICATION LISTComment:[facility] Intraoperative Recordon [id number] OR Intraoperative RecordIntraOp Document Type FT Summary Primary Physician: Hardeep Fraga DO Finalized Date/Time: 02/11/18 13:09:49 Pt. Name: PANKAJ PAYNE D.O.B./Sex: 1945 Male Med Rec #: [id number] Physician: Hardeep Fraga DO Financial #: [id number] Pt. Type: A Room/Bed: [facility]/ Ad jarocho/Disch: 02/11/18 08:31:00 - 02/11/18 12:00:00 [...] Arnold Morton Role Performed Surgeon - Primary Plant Nursery Worker - Primary Plant Nursery Worker - Primary Time In 02/11/18 11:04:00 02/11/18 11:04:00 02/11/18 11:04:00 Time Out 02/11/18 11:24:00 02/11/18 11:24:00 02/11/18 11:24:00 Procedure CATARACT EXTRACTION W/ CATARACT EXTRACTION W/ CATARACT EXTRACTION W/ INTRAOCULAR LENS(Left) INTRAOCULAR LENS(Left) INTRAOCULAR LENS(Left) Comments Last Modified By: Siddharth RN, Rosanna Messina RN, Rosanna Vanegas RN 02/11/18 11:24:31 02/11/18 11:24:31 02/11/18 11:24:31 Entry 4 Entry 5 Case Attendee Marisela Huber CST ULTIMATE HOOPS TRAINER/Nusrat ZAMORA Role Performed Scrub - Primary Scrub [...] Rosanna Messina RN, Tiffanie RN, Krys Mar ULTIMATE HOOPS TRAINER/SA, Mayo Silverio ULTIMATE HOOPS TRAINER, Marisela Rodriguez Time Out Complete 02/11/18 11:08:00 [...] Identification Description ROSENDA [id number] 12.50MM Lot Number [id number] 17.50 [[id number]][F] Construction Estimator [employer] Catalog ?# [id number] [F] Size 17.5 Expiration Date 09/21/18 Usage Data Implant Site LEFT EYE Quantity 1 Outcomes Met? Yes Last Modified By: Rosanna Messina RN 02/11/18 11:19:54 Post-Care Text: The patient is free from signs and symptoms of injury caused by extraneous objects CaseComments Finalized By: Elayne Agosto CST Document Signatures Signed By: Rosanna Messina RN 02/11/18 11:24 Elayne Agosto CST 02/11/18 13:09NoUniversity [facility]als Beachwood [facility] CenterMain OR PACU II Recordon [id number] OR PACU II RecordPACU Phase II Document Type FT Summary Primary Physician: Hardeep Fraga DO Finalized Date/Time: 02/11/18 12:09:46 Pt. Name: PANKAJ PAYNE/Sex: 1945 Male Med Rec #: [id number] Physician: Hardeep Fraga DO Financial #: [id number] Pt. Type: A Room/Bed: [place] [address] Admit/Disch: 02/11/18 08:31:00 - Institution: Case Times [...] Signatures Signed By: Lisa Rubi RN 02/11/18 12:09NoUniversity Hospitals Beachwood Medical CenterPatient Education - Texton 02-11-2018 [facility] - [facility]Progress Note-Physician on 50-94-0957Fwpyccu mass concPatient: PANKAJ PAYNE Age: 72 years Sex: Male : 1945 Associated Diagnoses: None Author: Hardeep Fraga DO Postoperative Information Date/ Time: 02/11/18 11 :23:00 Preoperative Diagnosis: Senile Cataract - OS. Postoperative Diagnosis: same . Procedure: Cataract Extraction with IOL placement - OS. Anesthesia Method: Local. Performed by: Hardeep Fraga DO. Specimens Removed: none . Estimated Blood Loss: 0 ml. Complications: None.[facility]hillComment on above:Result Comment: Electronically Signed By: Hardeep Fraga DO\.br\Date and Time Signed: 02/11/18 11:23 EST Vital Signs Date TimeVital SignValuePerforming UgvemkmfiDjlbhixx00-85-3360 10:59-0500Body qilyps949.1 cmCrescencio Marin DO Work Phone: 1(626)[address] [place], [place] 3915311-05-2025 10:59-0500 Body mass index (BMI) [Ratio]31.95 kg/p2QuhazumCrescencio Liaodon DO Work Phone: 1(934)[address] [place], [place] 3915311-05-2025 10:59-0500 Body xrcakl45.09 kgWisissy Marin DO Work Phone: 1(848)[address]23 [address]11-05-2025 10:59-0500 Diastolic blood nbsdrejk48 mm[Hg]Crescencio Marin DO Work Phone: 1(564)[address]23 [address]11-05-2025 10:59-0500 Heart rate66 /minCrescencio Marin DO Work Phone: 1(579)[address] [place], [place] 3915311-05-2025 10:59-0500 Systolic blood pdbarifx409 mm[Hg]Crescencio Marin DO Work Phone: 1(863)41423 [address]10-23-2025 13:26-0400 Body zdzgat464.1 cmBuck Barlow MULTIMEDIA EDITOR[employer]MATE SHIP Work Phone: 1(097)[address]23 [address]10-23-2025 13:26-0400 Body mass index (BMI) [Ratio]30.12 kg/f9GffdzBuck Barlow MULTIMEDIA EDITOR[employer]MATE SHIP Work Phone: [address] [place], [place] 3915310-23-2025 13:26-0400 Body noksch71.1 kgBuck Barlow MULTIMEDIA EDITOR[employer]ATE [employer]IP Work Phone: 1(537)41423 [address]10-23-2025 13:26-0400 Diastolic blood ewhncqpq94 mm[Hg]Buck Barlow MULTIMEDIA EDITOR[employer]ATE [employer]IP Work Phone: 1(752)41423 [address]10-23-2025 13:26-0400 Heart rate47 /Derek Barlow MULTIMEDIA EDITOR[employer]ATE [employer]IP Work Phone: 1(961)41423 [address]10-23-2025 13:26-0400 Systolic blood yjkqtref329 mm[Hg]Buck Barlow MULTIMEDIA EDITOR[employer]MATE [employer]IP Work Phone: [facility]10-16-2025 11:38-0400 Body nbiqdo843.4 cmSalima Adrian TOOL CARRIER Work Phone: [facility] HospitalZsecwcfjbi47-51-2011 11:38-0400Body mass index (BMI) [Ratio]29.4 kg/m2Zohaibking Adrian TOOL CARRIER Work Phone: [facility] HospitalVwsuzqsbsh32-97-6603 11:38-0400Body qlthpa77.38 kgSalima Gar TOOL CARRIER Work Phone: [facility] HospitalFfslhbwvaq73-99-3513 11:38-0400Diastolic blood cwdusbui87 mm[Hg]Salima Gar TOOL CARRIER Work Phone: [facility] HospitalKgvoknizfw17-84-7015 11:38-0400Heart rate49 /min Salima Gar TOOL CARRIER Work Phone: [facility] HospitalIbkuctccyt07-08-0727 11:38-0400Respiratory rate16 /minSalima Gar TOOL CARRIER Work Phone: [facility] HospitalWgcaenyffn29-67-4231 11:38-2669GoZ6% (BldA) [Mass fraction]100 %Salima Gar TOOL CARRIER Work Phone: [facility] HospitalXakdxyqtyk99-62-1158 11:38-0400Systolic blood jhnesecc272 mm[Hg]Salima Gar TOOL CARRIER Work Phone: [facility] HospitalCdxuhxofel75-80-5025 13:33-0400Body mcawzh306.48 cmDashanae Conley II Work Phone: [facility]08-20-2025 13:33-0400 Body mass index (BMI) [Ratio]32.3 kg/e9Fhjjou Conley II Work Phone: [facility]08-20-2025 13:33-0400 Body xcafjm40.28 kgDashanae Conley II Work Phone: [facility]08-20-2025 13:33-0400 Diastolic blood kjxbyqrd65 mm[Hg]Frantz Conley II Work Phone: 1(428)467-[address] [place], [place] 3153708-20-2025 13:33-0400 Heart rate61 /minDzita Conley II Work Phone: 1(058)570-[address] [place], [place] 3153708-20-2025 13:33-0400 Systolic blood lfqjawtn401 mm[Hg]Frantz Conley II Work Phone: 1(543)058-[address] [place], [place] 1156307-29-2025 14:31-0400 Body rfthob804.4 cmKaren Hemmer PA Work Phone: 1(942)299-[address] [place], [place] [address]Mtgffrzmrh50-65-9286 14:31-0400Body mass index (BMI) [Ratio]29.24 kg/i7Onjap Hemmer PA Work Phone: [facility] HospitalZvazttpffi34-89-4000 14:31-0400Body rddmiv12.92 kgKaren Hemmer PA Work Phone: [facility] HospitalTimrrtxlrs21-82-5888 14:31-0400Diastolic blood etwamqtf99 mm[Hg]Rosanna Hemmer PA Work Phone: 1(261)[facility]-[address] [place], [place] [address]Trhcbticgd05-30-4751 14:31-0400Heart rate69 /min Rosanna Hemmer PA Work Phone: [facility] HospitalVtkggzrvnl86-07-8933 14:31-0400Respiratory rate16 /minKaren Hemmer PA Work Phone: [facility] HospitalTvxurpwanl61-29-6118 14:31-2445YsP4% (BldA) [Mass fraction]96 %Rosanna Hemmer PA Work Phone: 1(286)[facility]-4534[facility] HospitalIwzotvzzqe06-21-9571 14:31-0400Systolic blood egwqydpg862 mm[Hg]Rosanna Hemmer PA Work Phone: 1(348)[facility]-6787[facility] HospitalNcatutarkg99-74-6058 11:04-0400Body yjswez162.4 cmFrantz Conley MD Work Phone: [facility] HospitalKzwdcmfxql99-83-7011 11:04-0400Body mass index (BMI) [Ratio]29.66 kg/c2WxodyhFrantz Conley MD Work Phone: 1(699)936-[address] [place], [place] [address]Wfbssjbstb42-72-2049 11:04-0400Body deyuyg18.1 kg Frantz Conley MD Work Phone: [facility] HospitalCbdsilezeo14-18-5672 11:04-0400Diastolic blood tfbubuot51 mm[Hg]Frantz Conley MD Work Phone: [facility] HospitalXnpfnpeyin83-07-1441 11:04-0400Heart rate48 /min Frantz Conley MD Work Phone: [facility] HospitalBxtrcukciv65-98-4134 11:04-1744OkC4% (BldA) [Mass fraction]97 %Frantz Conley MD Work Phone: [facility] HospitalSbfoaokrwg15-22-8489 11:04-0400Systolic blood mm[Hg]Frantz Conley MD Work Phone: [facility] HospitalWhvrxsurrr14-20-3926 14:56-0400Body cbaemi668.1 cmWiclaytonking LiaoTomas DO Work Phone: [facility]06-17-2025 14:56-0400 Body mass index (BMI) [Ratio]30.29 kg/i7Ajxrmep Tomas DO Work Phone: 1(800)486-[address] [place], [place] 3915306-17-2025 14:56-0400 Body fpwycu25.56 kgWilllazaro Tomas DO Work Phone: 1(110)915-[address] [place], [place] 3915306-17-2025 14:56-0400 Diastolic blood mm[Hg]Crescencio Marin DO Work Phone: 1(737)803-[address] [place], [place] 3915306-17-2025 14:56-0400 Heart rate58 /minWibradlylazaro Tomas DO Work Phone: [address] [place], [place] 0478706-17-2025 14:56-0400 Systolic blood mm[Hg]Crescencio Marin DO Work Phone: [address] [place], [place] 0478702-06-2025 13:05-0500 Body apivem236.48 cmFrantz Conley II Work Phone: [facility]02-06-2025 13:05-0500 Body mass index (BMI) [Ratio]32 kg/l7AzpjmhFrantz Conley II Work Phone: 1(807)236-[address] [place], [place] 1156302-06-2025 13:05-0500 Body ypmcnc17.37 kgDashanae Conley II Work Phone: 1(635)[address]12-19-2024 10:59-0500 Body fcjnyx662.4 cmFrantz Conley MD Work Phone: 1(042)[address]37 [address]12-19-2024 10:59-0500Body mass index (BMI) [Ratio]29.17 kg/q0EwaslwFrantz Conley MD Work Phone: 1(987)[address]37 [address]12-19-2024 10:59-0500Body foyqin83.74 kgFrantz Conley MD Work Phone: 1(005)160-[address] [place], [place] [address]Jafqumcwgf46-46-4872 10:59-0500Diastolic blood zwfwtjua18 mm[Hg]Frantz Conley MD Work Phone: 1(357)014-[address] [place], [place] [address]Fyhnkdejxo02-93-5779 10:59-0500Heart rate56 /min Frantz Conley MD Work Phone: 1(399)864-[address] [place], [place] [address]Lzdzyflmxn93-87-2307 10:59-2317XeP8% (BldA) [Mass fraction]98 %Frantz Conley MD Work Phone: 1(893)764-[address] [place], [place] [address]Djwwuhgcko76-91-9066 10:59-0500Systolic blood bjymvbzm717 mm[Hg]Frantz Conley MD Work Phone: 1(197)220-[address] [place], [place] [address]Dbyeuhvlhc87-34-3442 11:24-0400Heart rate52 /min Crescencio Marin DO Work Phone: [facility]10-09-2024 11:16-0400 Body eqzbqr998.1 cmCrescencio Marin DO Work Phone: [facility]10-09-2024 11:16-0400 Body mass index (BMI) [Ratio]29.09 kg/y5ViklvfvCrescencio Marin DO Work Phone: [facility]10-09-2024 11:16-0400 Body wrmyas65.29 kgWibradlyiam Tomas DO Work Phone: [facility]10-09-2024 11:16-0400 Diastolic blood mm[Hg]Crescencio Marin DO Work Phone: [facility]10-09-2024 11:16-0400 Systolic blood nwdpyevq931 mm[Hg]Crescencio Marin DO Work Phone: [facility]07-31-2024 11:17-0400 Diastolic blood rmfxkaiz53 mm[Hg]II Frantz Conley Work Phone: 1(305)[address]07-31-2024 11:17-0400 Heart rate70 /minII Frantz Conley Work Phone: 1(671)[address] [place], [place] 8382407-31-2024 11:17-0400 Respiratory rate18 /minII Frantz Conley Work Phone: 1(105)[address]494 [address]07-31-2024 11:17-0400 SaO2% (BldA) [Mass fraction]98 %II Frantz Conley Work Phone: 1(556)99394 [address]07-31-2024 11:17-0400 Systolic blood qfigrkpw806 mm[Hg]II Frantz Conley Work Phone: 1(398)[address]07-31-2024 09:10-0400 Body patbth389.48 cmII Frantz Conley Work Phone: 1(742)12894 [address]07-31-2024 09:10-0400 Body ipyvqw79.01 kgII Frantz Conley Work Phone: 1(219)[address]06-25-2024 11:02-0400 Body kqtxwa623.1 cmII Frantz Conley Work Phone: 1(609)[address]06-25-2024 11:02-0400 Body mass index (BMI) [Ratio]28.8 kg/m2II Frantz Conley Work Phone: 1(048)[address]06-25-2024 11:02-0400 Body .47 kgII Frantz Conley Work Phone: [facility]06-25-2024 11:02-0400 Diastolic blood mm[Hg]II Frantz Conley Work Phone: [facility]06-25-2024 11:02-0400 Heart rate53 /minII Frantz Jarvis Work Phone: [facility]06-25-2024 11:02-0400 Systolic blood ifjoqwek424 mm[Hg]II Frantz Conley Work Phone: [facility]03-28-2024 10:01-0400 Diastolic blood kitgaepx67 mm[Hg]Crescencio Tomas DO Work Phone: 1(850)170-[address] [place], [place] 3915303-28-2024 10:01-0400 Heart rate63 /minWibradlylazaro Liaodon DO Work Phone: 1(372)[address]03-28-2024 10:01-0400 Systolic blood symzsejg401 mm[Hg]Crescencio Marin DO Work Phone: 1(652)185-[address] [place], [place] 3915303-28-2024 10:00-0400 Body .1 cmWisissy Liaodon DO Work Phone: 1(846)008-[address] [place], [place] 3915303-28-2024 10:00-0400 Body mass index (BMI) [Ratio]30.29 kg/n6Kxzjuyv Tomas DO Work Phone: 5(411)060-[address] [place], [place] 3915303-28-2024 10:00-0400 Body .56 kgWisissy Tomas DO Work Phone: 1(509)102-[address] [place], [place] 3915302-14-2024 10:30-0500 Body ijfddt112.4 cmFrantz Conley MD Work Phone: [facility] HospitalWsisrdugra61-22-3483 10:30-0500Body mass index (BMI) [Ratio]29.66 kg/e9ZdqjkaFrantz Conley MD Work Phone: [facility] HospitalJicwfznokd49-18-9042 10:30-0500Body wihjrg03.1 kg Frantz Conley MD Work Phone: [facility] HospitalDqgepfarbg48-86-6438 10:30-0500Diastolic blood loxazyog41 mm[Hg]Frantz Conley MD Work Phone: [facility] HospitalYuxkjmvzgg82-75-6804 10:30-0500Heart rate52 /min Frantz Conley MD Work Phone: [facility] HospitalLnuafmmzqh62-73-8099 10:30-7905DaV0% (BldA) [Mass fraction]99 %Frantz Conley MD Work Phone: [facility] HospitalPypsnakvjz77-12-8376 10:30-0500Systolic blood gqgcvpdo499 mm[Hg]Frantz Conley MD Work Phone: [facility] HospitalLyymiqsgbi74-13-5007 10:27-0400Body temperature 97.8 [degF]II Frantz Conley Work Phone: 1(666)[address]07-07-2023 10:27-0400 Body efljsq94.19 kgII Frantz Conley Work Phone: 1(653)912-[address] [place], [place] 1156307-07-2023 10:27-0400 Diastolic blood mm[Hg]II Frantz Conley Work Phone: 1(262)[address]94 [address]07-07-2023 10:27-0400 Heart rate39 /minII Frantz Conley Work Phone: 1(781)874-[address] [place], [place] 1156307-07-2023 10:27-0400 Respiratory rate16 /minII Frantz Conley Work Phone: 1(594)617-[address] [place], [place] 1156307-07-2023 10:27-0400 SaO2% (BldA) [Mass fraction]97 %II Frantz Conley Work Phone: 1(900)145-[address] [place], [place] 1156307-07-2023 10:27-0400 Systolic blood fgtqinhb796 mm[Hg]II Frantz Conley Work Phone: [facility]06-27-2023 10:00-0400 Body qvivax127.1 [facility] Other [facility] [employer] Other 06-27-2023 10:00-0400Body mass index (BMI) [Ratio] 29.12 kg/i4KjfvscaMick Branch Other [facility] [employer] Other 06-27-2023 10:00-0400Body rgeiou83.38 kgCamkayla Branch Other [facility] [employer] Other 06-27-2023 10:00-0400Diastolic blood ohbmewcu54 mm[Hg] Mick Branch Other [facility] [employer] Other 06-27-2023 10:00-0400Systolic blood ttumcziy994 mm[Hg] Mick Branch Other [place] [employer] Other 05-17-2023 13:49-0400Body azfhel534.1 cmII Frantz Conley Work Phone: [facility]06-28-2022 13:10-0400 Diastolic blood hnapayav25 mm[Hg]II Frantz Conley Work Phone: [facility]06-28-2022 13:10-0400 Heart rate68 /NancyI Frantz Conley Work Phone: [facility]06-28-2022 13:10-0400 Respiratory rate16 /minII Frantz Conley Work Phone: [facility]06-28-2022 13:10-0400 SaO2% (BldA) [Mass fraction]96 %II Frantz Conley Work Phone: [facility]06-28-2022 13:10-0400 Systolic blood cypcxhpp471 mm[Hg]II Frantz Conley Work Phone: [facility]06-28-2022 11:54-0400 Body .1 cmII Frantz Conley Work Phone: [facility]06-28-2022 11:54-0400 Body mass index (BMI) [Ratio]29.9 kg/m2II Frantz Conley Work Phone: [facility]06-28-2022 11:54-0400 Body pduqucokuqi71.3 [degF]II Frantz Conley Work Phone: [facility]06-28-2022 11:54-0400 Body .64 kgII Frantz Conley Work Phone: [facility]06-22-2022 15:15-0400 Body qutffw371.1 Jeniffer [employer] Other [employer] Other 06-22-2022 15:15-0400Body mass index (BMI) [Ratio] 29.95 kg/x7BtyetlpSavi Health Other [employer] Other 06-22-2022 15:15-0400Body .65 kgCamSavi Health Other [employer] Other 05-26-2022 12:00-0400Body aaabxjdghdd04.01 [degF]Leonard Johnson [facility] ITUBDE87-81-8929 11:15-0400Heart rate69 /minLeonard Johnson [facility] LHMRGG87-33-3018 11:15-0400Respiratory rate19 /min Leonard Johnson [facility]05-26-2022 11:15-5883UtG3% (BldA) [Mass fraction]98 %Leonard Johnson [facility]05-26-2022 10:00-0400 Diastolic blood kobkftfk68 mm[Hg]Leonard Johnson [facility] 08-17-2021 10:00-0400Systolic blood ysnsrmng032 mm[Hg]Leonard Johnson [facility]05-25-2022 21:48-0400Body qttahe876.1 Reema Johnson [facility]05-25-2022 21:48-0400Body mass index (BMI) [Ratio]30.05 kg/k9QslwyLeonard Johnson [facility]05-25-2022 21:48-0400Body weight 81.92 kgAaron Alex [facility]04-19-2022 11:45-0400Body height 165.1 Sravanthigeno Branch Other [employer] Other 04-19-2022 11:45-0400Body mass index (BMI) [Ratio] 30.45 kg/v7EeiauekMick Branch Other [employer] Other 04-19-2022 11:45-0400Body xvzobz72.01 kgCamkayla Branch Other [employer] Other 04-19-2022 11:45-0400Diastolic blood ispyisxf77 mm[Hg] Mick Thaisadam Other [employer] Other 04-19-2022 11:45-0400Systolic blood ztetbqsp552 mm[Hg] Mick Thaisadam Other [employer] Other Encounters Encounter DateEncounter TypeCare ProviderFacilityStart: 01-27-2025 End: 39-40-6419Rlwevo outpatient visit 40 minutesCrescencio Marin DO Work Phone: [facility] HollyComment on above:Localized edema; Sinus node dysfunction (Multi); PVC (premature ventricular contraction); History of coronary artery stent placement; ASHD (arteriosclerotic heart disease); Ascending aorta dilation; Former cigarette smoker; BMI 31.0-31.9,adult; CHF (congestive heart failure), NYHA class I, unspecified failure chronicity, diastolic (Multi)Start: 01-27-2025 End: 60-52-8693qbgapahjzaFYHYKZK [facility] AmbulatoryStart: 01-15-2025 End: 01-08-4408lpgshzyhauGCD STAFFFacility:[facility] Start: 01-14-2025 End: 80-97-3058Khpfji outpatient visit 25 minutesBuck Quintanilla Miller MULTIMEDIA EDITOR[employer] Work Phone: uh [facility] HollyComment on above:Sinus node dysfunction (Multi) (Primary Dx); ASHD (arteriosclerotic heart disease); BMI 30.0-30.9,adultStart: 01-14-2025 End: 78-25-8090cbgsrvuzikQTDHISt. Joseph's Hospital AmbulatoryStart: 01-07-2025 End: 25-47-2761Xdnaevvidal Gar TOOL CARRIER Work Phone: [facility] MedinceStart: 01-07-2025 End: 16-23-0048Kbjarcsanjay Gar TOOL CARRIER Work Phone: [facility] MedinceStart: 01-07-2025 End: 64-47-5881Yzajem outpatient visit 15 Melany Gar TOOL CARRIER Work Phone: [facility] MedinceComment on above:Hospital discharge follow-up (Primary Dx); Cough, unspecified type; Constipation, unspecified constipation typeStart: 01-07-2025 End: 40-78-5141xodenjqdheYJV C MILLERNot AvailableStart: 12-25-2024 End: 09-86-0537Remlzcbor Result EncounterGeneric External Data ProviderNOMS External Department UnsolicitedStart: 12-25-2024 End: 79-28-0726Hayutvhij Result EncounterGeneric External Data ProviderNOMS External Department UnsolicitedStart: 12-25-2024 End: 33-44-8820smpkwfpopzBlkdfs Berry II Work Phone: [facility] Work Phone: Start: 12-25-2024 End: 43-24-0414Tyospeia Radha Hernandez MD-LAB [facility] Start: 12-07-2024 End: 77-62-8852Xezetmbpv Result EncounterGeneric External Data ProviderNOMS External Department UnsolicitedStart: 12-07-2024 End: 79-84-8257Rhkldsdnh Result EncounterGeneric External Data ProviderNOMS External Department UnsolicitedStart: 11-11-2024 End: 26-94-8611tixpfhrvodGffjxr Berry II Work Phone: [facility] Work Phone: Start: 11-11-2024 End: 63-99-3228Krwxtrj encounter procedureMick Branch MD-[facility] Work Phone: Start: 11-02-2024 End: 66-34-1974Bbxslme encounter procedureMick Branch MD-Lab [facility] Work Phone: Start: 11-02-2024 End: 44-04-7788fjomirsdjdOlbweg Berry II Work Phone: [facility] Work Phone: Start: 10-20-2024 End: 56-95-9433Sqvjqjw encounter procedureRosanna MIRZA Work Phone: [facility] HospitalnceComment on above:Medicare annual wellness visit, subsequent (Primary Dx); ACP (advance care planning); Chronic insomnia; Other chronic pain; Benign essential HTN ; Benign hypertensive heart and CKD, 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), w CHF (HCC); Coronary artery disease involving [place] coronary artery of [place]one heart without angina pectoris ; Dilatation of aorta; History of coronary artery stent placement; PVCs (premature ventricular contractions); Sinus arrhythmia; Sinus bradycardia; Abnormal LFTs; Diverticulosis of colon; Gastroesophageal reflux disease without esophagitis; 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-HCC); Former cigarette smoker; Mixed hyperlipidemia ; Situational anxiety; Unsteadiness on feet; Esophageal varices without bleeding (HCC); Other secondary pulmonary hypertension (HCC); Grade II diastolic dysfunctionStart: 10-20-2024 End: [id number] Crockett AvailableStart: 10-20-2024 End: [id number] Jimmy MIRZA Work Phone: [facility] Johnathon Deras MedinceStart: 10-20-2024 End: [id number] Jimmy MIRZA Work Phone: [facility] Johnathon Deras MedinceStart: 10-05-2024 End: 83-48-4210Xcfsjx outpatient visit 25 minutesFrantz Conley MD Work Phone: noms CI FMComment on above:Sinus bradycardia (Primary Dx); PVCs (premature ventricular contractions); Coronary artery disease involving northwestern shoshone coronary artery of northwestern shoshone heart without angina pectoris ; 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) ([facility])Start: 10-05-2024 End: 56-50-0257pimmwoegjmRSBLKG B BERRYNot AvailableStart: 10-01-2024 End: 96-98-8202Eqlgwcyxt Result EncounterGeneric External Data ProviderNOMS External Department UnsolicitedStart: 10-01-2024 End: 18-29-0986Kwrzmmvmb Result EncounterGeneric External Data ProviderNOMS External Department UnsolicitedStart: 09-23-2024 End: 71-68-9443Zzcwhznro Result EncounterGeneric External Data ProviderNOMS External Department UnsolicitedStart: 09-23-2024 End: 97-15-7525Dlkzaigqo Result EncounterGeneric External Data ProviderNOMS External Department UnsolicitedStart: 09-08-2024 End: 20-84-2245Civayy outpatient visit 15 minutesCrescencio Marin DO Work Phone: uh FirelandsComment on above:ASHD (arteriosclerotic heart disease); History of coronary artery stent placement; PVC (premature ventricular contraction); BMI 30.0-30.9,adult; Former cigarette smoker; Hyperlipidemia, unspecified hyperlipidemia typeStart: 09-08-2024 End: 98-37-9253suxocpzyqwNYGKXFTWellstar [facility] AmbulatoryStart: 05-21-2024 End: 77-17-0583Jhwngcy encounter procedureDatalael Conley II Work Phone: [facility]-Ultrasound [facility] [place] Work Phone: Start: 05-21-2024 End: 61-35-3381iubxefratqEyjoij Conley II Work Phone: [facility] Work Phone: Start: 04-30-2024 End: 80-37-6630unqjclyblaGevazx Conley II Work Phone: [facility] Work Phone: Start: 04-30-2024 End: 85-21-5361Dkwrlqu encounter procedureDaniel Conley II Work Phone: [facility]-Lab [facility] [place] Work Phone: Start: 04-22-2024 End: 88-69-4185IlouvtVdlqu Saturday GRAPHICS ARTIST Work Phone: noms CI FMComment on above:Mixed hyperlipidemia (CMS/HCC) (Primary Dx)Start: 04-21-2024 End: 12-65-1780Fjjclkzjy Result EncounterGeneric External Data ProviderNOMS External Department UnsolicitedStart: 04-21-2024 End: 53-17-1718Ifnkwjrzy Result EncounterGeneric External Data ProviderNOMS External Department UnsolicitedStart: 03-12-2024 End: 50-03-3254Riuskp Davie Conley MD Work Phone: NOMS CI FMStart: 03-12-2024 End: 79-30-5831Yvpqux Davie Conley MD Work Phone: noMS CI FMStart: 03-12-2024 End: 83-96-9815Qshyck outpatient visit 25 minutesFrantz Conley MD Work Phone: noms FMComment on above:Benign essential HTN (CMS/HCC) (Primary Dx); Flu vaccine need; Coronary artery disease involving northwestern shoshone coronary artery of northwestern shoshone heart without angina pectoris (CMS/HCC); Mixed hyperlipidemia (CMS/HCC); Acquired hypothyroidism (CMS/HCC); Prostate cancer screeningStart: 03-12-2024 End: 52-05-5128duadqwedrlJLPSZZ B BERRYNot AvailableStart: 01-01-2024 End: 23-59-9708Skmqyo outpatient visit 25 minutesChintanlazaro Marin Work Phone: FirelandsComment on above:ASHD (arteriosclerotic heart disease); PVC (premature ventricular contraction); History of coronary artery stent placement; Former cigarette smoker; BMI 29.0-29.9,adult; BradycardiaStart: 12-05-2023 End: 42-51-0159Zntmugefm Result EncounterGeneric External Data ProviderNOMS External Department UnsolicitedStart: 12-05-2023 End: 80-65-8458Qhkccaaxe Result EncounterGeneric External Data ProviderNOMS External Department UnsolicitedStart: 20-13-3045Wdu-patient / Non-visitII Frantz Conley Work Phone: [facility] Gastroenterology Work Phone: Start: 10-23-2023 End: 36-10-6275Yzcyeutlr to same day surgery centerII Frantz Conley Work Phone: [facility] Ctr-Digestive Health Work Phone: Start: 10-23-2023 End: 37-23-0149fdfwwdgtfbML Daniel Berry Work Phone: [facility] Work Phone: Start: 10-01-2023 End: 54-22-6313kyfcgnzoxqDL Frantz Conley Work Phone: [facility] Work Phone: Start: 10-01-2023 End: 59-18-0746Hxwzbmv encounter procedureII Frantz Conley Work Phone: [facility]-Ultrasound [facility] [place] Work Phone: Start: 09-17-2023 End: 81-51-3449mhsntojmnqJG Frantz Conley Work Phone: [facility] Work Phone: Start: 09-17-2023 End: 44-45-1848Hifxule encounter procedureII Frantz Conley Work Phone: [facility]-Lab [facility] [place] Work Phone: Start: 06-20-2023 End: 28-92-6424Acukfp outpatient visit 40 minutesCrescencio Marin DO Work Phone: uh FirelandsComment on above:ASHD (arteriosclerotic heart disease); History of coronary artery stent placement; Ascending aorta dilation (CMS/HCC); Iron deficiency anemia, unspecified iron deficiency anemia type; PVC (premature ventricular contraction); Former cigarette smokerStart: 06-05-2023 End: 61-92-6795drdddrporsEU Daniel Berry Work Phone: [facility] Work Phone: Start: 06-05-2023 End: 72-78-9915Xpihpxx encounter procedureII Frantz Conley Work Phone: [facility]-Ultrasound [facility] [place] Work Phone: Start: 52-45-6732Kmzhid flowsRosio Conley MD Work Phone: NOMS CI FMStart: 20-57-0053Qfbldb Davie Conley MD Work Phone: NOMS CI FMStart: 05-08-2023 End: 01-81-4904Fzxqzzxkvjue care manage srvc 7 day dischargeDzita Conley MD Work Phone: NOMS CI FMComment on above:Pancytopenia, acquired (CMS/HCC) (Primary Dx); Iron deficiency anemia, unspecified iron deficiency anemia type; Other cirrhosis of liver (CMS/HCC); Fatty liver disease, nonalcoholic; Hyperchylomicronemia (CMS/HCC)Start: 05-01-2023 End: 18-96-0194mpqyekcqqhTL Jose Manning Work Phone: [facility] Work Phone: Start: 05-01-2023 End: 16-56-5523Hayvbbwj ReferredMD Jose Manning Work Phone: [facility] Ctr-LAB Path Spec [facility]ospStart: 10-04-2022 End: 47-06-6585skvatmknptKX Frantz Conley Work Phone: [facility] Work Phone: Start: 10-04-2022 End: 65-98-1550Rcldszz encounter procedureII Frantz Conley Work Phone: [facility]-Ultrasound [facility] [place] Work Phone: Start: 09-28-2022 End: 19-46-0816wsgsjukdluIT Frantz Conley Work Phone: [facility] Work Phone: Start: 09-28-2022 End: 27-07-5721Odgrntjvpr RecurringII Frantz Conley Work Phone: [facility] Ctr-Cancer Center Work Phone: Start: 09-18-2022 End: 65-96-4300xlrolqkfluLbnmszu Sarina Other [place] [employer] Other Start: 51-46-2721Ayhqylg encounter procedureCameron DittyFPG GastroenterologyStart: 11-08-2021 End: 93-29-3550kbhrtfdiycZP EHAB ELTAHAWYFacility:K2Vdgqn: 11-06-2021 End: 08-91-2557Covpzwx encounter procedureII Frantz Conley Work Phone: [phone] [place] [address] Ctr-Respiratory Therapy Start: 10-10-2021 End: 48-86-0348Uzdefxp encounter procedureII Frantz Conley Work Phone: [facility] Ctr-CT Scan [facility] [place] Start: 09-20-2021 End: 78-89-9212Sxbrdrw encounter procedureII Frantz Conley Work Phone: [facility]-Ultrasound [facility] [place] Start: 09-19-2021 End: 32-32-7606Mtthwfgik to same day surgery centerII Frantz Conley Work Phone: [facility] Ctr-Digestive HealthStart: 09-15-2021 End: 90-40-2268Rgwkqpx encounter procedureII Frantz Conley Work Phone: [facility]-Pre-Surgical Testing Start: 09-13-2021 End: 22-44-5828cthawtsfscKmlwwrx Sarina Other [employer] ([employer]) Other Start: 76-76-3423Dvqvelt encounter procedureCamkayla BranchFPG GastroenterologyStart: 08-16-2021 End: 53-09-0992Twqtopehzk and management of inpatientZUBAIR AHAPerson Memorial Hospitaly [facility] Vista Hospitaltart: 08-16-2021 End: 03-11-1370Cmencdamre and management of inpatientAaron M Orqvist MDSTVZ CAR 1Comment on above:Subarachnoid hemorrhage following injury, no loss of consciousness, initial encounter (HCC) (Primary Dx); Facial laceration, initial encounterStart: 08-16-2021 End: 08-04-0682ullofuvhzeZZKAJIM D KATKOFacility:Z8Elene: 07-12-2021 End: 85-63-7505buigicqimkUVQPZOJ SARINAFacility:T8Vyonh: 07-11-2021 End: 60-18-8047zhbontfrpaGcuoefw Sarina Other [employer] ([employer]) Other Start: 57-38-8022YKON visit new patientCamkayla Branch FPG GastroenterologyStart: 03-01-2021 End: 21-77-5555tiymmqllopUP FRANTZ CONLEYFacility:U9Iddxs: 02-03-2021 End: 91-90-7307pfovjlofegOU DANIEL BERRYFacility:E7Sspez: 10-30-2018 End: 01-88-3467Qmmoikm encounter procedureRADELILAH WOOPTAFacility:UTMCStart: 02-28-2018 End: 04-06-7677Ocplhlr encounter procedureZOHAIGeoffrey LAMAMEDFacility:UTMCStart: 02-25-2018 End: 99-16-6970Nobxsje encounter procedureJonatyesi FragaFacility:FTMCStart: 02-11-2018 End: 94-00-3524Dsbrbwn encounter procedureJolinhyesi ShijudithFacility:[facility] Procedures DateProcedureProcedure DetailPerforming ClinicianStart: 98-92-7336RUXFE CULTURE - [facility] WATONGAGeneric External Data ProviderStart: 70-45-7222FWM CBC WITH AUTO DIFF Generic External Data ProviderStart: 83-21-0182XMR BASIC METABOLIC PANELGeneric External Data ProviderStart: 62-49-9244GFP LIPID PROFILE (FASTING)Generic External Data ProviderStart: 89-09-2779AEA ALTGeneric External Data Provider Start: 44-29-5382UAY ASTGeneric External Data ProviderStart: 16-79-1103IDY CBC WITH AUTO DIFFGeneric External Data ProviderStart: 08-22-9328Ocbxqrigxxggfsg of abdomenDashanae Conley II Work Phone: Start: 94-52-1448MJM CBC WITH AUTO DIFFGeneric External Data ProviderStart: 70-16-3176Tyd routine ecg w/least 12 lds w/i&r Crescencio Marin DO Work Phone: Start: 81-35-9977BXI CBC WITH AUTO DIFFGeneric External Data ProviderStart: 15-75-5441LldwjinfjyrwlqgrgxragnkbnsRF Frantz Conley Work Phone: Start: 23-91-8250Uzbmznwxdcmcvdu of liverII Frantz Conley Work Phone: Start: 63-98-6435Hopfzsl of placement of stent for coronary artery diseaseHistory of coronary artery stent placementWisissy Marin DO Work Phone: Start: 54-90-8817Pbb routine ecg w/least 12 lds w/i&r Crescencio Marin DO Work Phone: Start: 21-54-8246QV scan of spleenII Frantz Conley Work Phone: Start: 35-35-3233Vgmyd 1996 panel - Serum or Plasma Crescencio Marin DO Work Phone: Start: 00-86-1545Ezmlfzbsayquheo of liverII Frantz Conley Work Phone: Start: 30-17-5516Ummvbov of placement of stent for coronary artery diseaseS/P coronary artery stent placementFrantz Conley MD Work Phone: Start: 61-03-1615Jrvpylwv tomography of abdomen and pelvis with contrastII Frantz Conley Work Phone: Start: 11-30-0163Hyjdjjenoohkmbe of liverII Frantz Conley Work Phone: Start: 63-98-7384OqpbukibwlgsrkqwhvlfqawkwcIT Frantz Conley Work Phone: Start: 13-70-7388VECEI METABOLIC PANEL W/ REFLEX TO MG FOR LOW KHayley E Prudencio DO Work Phone: Start: 43-41-2142Ospmm count complete auto&auto difrntl wbcHayley E Flannery DO Work Phone: Start: 69-64-3310Jfwrd s aureus methicillin resist amp probe tqLumeg Suarez MD Work Phone: Start: 44-41-0161Ts head/brain w/o contrast material Rishi Arteaga DO [...] Work Phone: Plan of Treatment DateCare ActivityDetailAuthorStart: 76-26-0064Xpiph panelLipid PanelGeorgetown Behavioral HospitalStart: 07-29-2026Medicare Annual Wellness (AWV)Medicare Annual Wellness (AWV)NOM HealthcareStart: 09-14-2025 End: 75-16-4699Ejesmbj encounter /23/2026 2:00 PM EDT Office Visit [place] [id number] [facility] [address] [place] [address] Crescencio Marin DO [address] [facility] [address] [place] [address] [facility]: [facility]25 End: 09-82-0596Hgyoejs encounter cjyjnsknz45/17/2026 1:00 PM EST Office Visit [place] [id number] [facility] [address] [place] [address] Buck Barlow, MULTIMEDIA EDITOR[employer] [address] [facility] [address] [place] [address] [facility]Start: 04-12-2025 End: 34-88-8278Njqvtgy encounter weofbqyos36/19/2026 11:00 AM EST Office Visit NOMS [place] Almaraz [address] [facility] [address] [place] [address] Frantz Conley MD [address] [facility] [address] [place] [address] NOMS Johanthon Deras MedinceStart: 02-04-2025 End: 90-31-3802Yuzpqrl encounter hjbkjanxe08/13/2025 1:15 PM EST Appointment [facility] [address] [facility] [address] [place] [address] [facility] Bret NobleStart: 01-27-2025 End: 17-57-3529Kafkwruxvns peptide B [Mass/volume] in BloodB-Type Natriuretic Peptide Lab Routine Localized edema Sinus node dysfunction (Multi) ASHD (arteriosclerotic heart disease) Ascending aorta dilation CHF (congestive heart failure), NYHA class I, unspecified failure chronicity, diastolic (Multi) Expected: 01/27/2025, Expires: 01/27/2026[facility] Service Area Work Phone: Comment on above:Expected: 01/27/2025, Expires: 01/27/2026Start: 01-27-2025 End: 98-02-6030KJ Heart TransthoracicTransthoracic Echo Complete Echocardiography Routine Localized edema Sinus node dysfunction (Multi)ASHD (arteriosclerotic heart disease) Ascending aorta dilation Expected: 01/27/2025 (Approximate), Expires: 01/27/2027[facility] Work Phone: Comment on above:Expected: 01/27/2025 (Approximate), Expires: 01/27/2027Start: 01-07-2025 End: 01-46-9681Ogqiyuk encounter twfiucuby68/16/2025 11:30 AM EDT Office Visit NOMS [place] Almaraz [address] [facility] [address] [place] [address] Salima Gar, TOOL CARRIER [address] [facility] [address] [place] [address] ArrivedNOMS [place] OropezanceComment on above:ArrivedStart: 61-48-5252Iqxvmbkr identified in Urine by CultureUrine Cleveland Clinictart: 72-34-0148Qtkfs [facility] Systemtart: 12-07-2024 End: 91-99-2477Nifycfd encounter procedureNOMS CI FMStart: 70-87-9460UVTPW-19 Vaccine ( season)COVID-19 Vaccine ( season)[facility]: 31-13-3374Pdbmanaod vaccinationInfluenza Vaccine (#1)[facility] HealthcareStart: 00-34-1156Nygxjmsgw vaccinationInfluenza Vaccine (#1) [facility]: 07-29-2025Medicare Annual Wellness (AWV) Medicare Annual Wellness (AWV)NOMS HealthcareStart: 10-20-2024 End: 56-16-0064Fhiamyq encounter procedureNOMS CI FMComment on above:Arrived Start: 10-05-2024 End: 54-93-9845Nxjrszq encounter yuxmuaque53/14/2025 11:00 AM EDT Office Visit NOMS CI FM [address] [facility] [address] [place] [address] Frantz Conley MD [address] [facility] [address] [place] [address] NOMS CI FMStart: 09-08-2024 End: 66-83-6835Zpnmvfg encounter ylfwcvuhj24/17/2025 3:00 PM EDT Office Visit [place] [id number] [facility] [address] [place] [address] Crescencio Marin DO [address] [facility] [address] [place], [place] [id number] [facility]: 09-08-2024 End: 10-67-0919Gmquvnf aminotransferase [Enzymatic activity/volume] in Serum or Plasma by With P-5'-PAlanine Aminotransferase Lab Routine ASHD (arteriosclerotic heart disease) Hyperlipidemia, unspecified hyperlipidemia type Expected: 09/08/2024 (Approximate), Expires: 09/08/2025[facility] Service Area Work Phone: Comment on above:Expected: 09/08/2024 (Approximate), Expires: 09/08/2025Start: 09-08-2024 End: 69-00-7818Vpldeeepo aminotransferase [Enzymatic activity/volume] in Serum or Plasma by With P-5'-PAspartate Aminotransferase Lab Routine ASHD (arteriosclerotic heart disease) Hyperlipidemia, unspecified hyperlipidemia type Expected: 09/08/2024 (Approximate), Expires: 09/08/2025[facility] Work Phone: Comment on above:Expected: 09/08/2024 (Approximate), Expires: 09/08/2025Start: 09-08-2024 End: 48-40-0044Ejfzx metabolic 2000 panel - Serum or PlasmaBasic Metabolic Panel Lab Routine ASHD (arteriosclerotic heart disease) PVC (premature ventricular c ontraction) Expected: 09/08/2024 (Approximate), Expires: 09/08/2025[facility] Work Phone: Comment on above:Expected: 09/08/2024 (Approximate), Expires: 09/08/2025Start: 09-08-2024 End: 66-17-3881Lchmk 1995 panel - Serum or PlasmaLipid Panel Lab Routine ASHD (arteriosclerotic heart disease) Hyperlipidemia, unspecified hyperlipidemia type Expected: 09/08/2024 (Approximate), Expires: 09/08/2025[facility] Work Phone: Comment on above:Expected: 09/08/2024 (Approximate), Expires: 09/08/2025Start: 42-84-5920Mvgru-1-fetoprotein.tumor marker [Mass/volume] in Serum or PlasmaMercy Health Tiffin Hospitaltart: 03-12-2024 End: 89-51-1019Sssso 1995 panel - Serum or PlasmaLipid panel Lab Routine Mixed hyperlipidemia (CMS/HCC) Expected: 03/12/2024 (Approximate), Expires:03/12/2025 NOMS HealthcareComment on above:Expected: 03/12/2024 (Approximate), Expires: 03/12/2025Start: 03-12-2024 End: 27-46-5026OZV W/REFLEX TO FT4TSH W/REFLEX TO FT4 Lab Routine Acquired hypothyroidism (CMS/HCC) Expected: 03/12/2024 (Approximate), Expires: 03/12/2025 NOMS HealthcareComment on above:Expected: 03/12/2024 (Approximate), Expires: 03/12/2025Start: 03-12-2024 End: 86-78-6526Fbuvore encounter procedureNOMS CI FMComment on above:Arrived Start: 12-25-2023 End: 40-97-8630Iymjxjo encounter kwjietshm56/02/2024 10:20 AM EDT Office Visit [facility] [address] [place] [address] Crescencio Marin DO [address] [place] [address] [facility]: 81-64-7053VVDRK-19 Vaccine ()COVID-19 Vaccine ()[facility]: 47-76-6365YQHZM-19 Vaccine ()COVID-19 Vaccine ()[facility]: 22-95-7616Wopnqtcih vaccinationInfluenza Vaccine (#1)NOMS HealthcareStart: 11-06-2023 End: 93-61-7513Bsjxuzm encounter yftuirpjx46/14/2024 11:00 AM EDT Office Visit NOMS CI FM [address] [facility] [address] [place] [address] Frantz Conley MD [address] [facility] [address] [place] [address] NOMS CI FMStart: 80-68-6592BsrutzfzhMartins Ferry Hospital Start: 10-21-2023 End: 72-28-6869Roxelbb encounter jgyfwucip99/29/2024 11:00 AM EDT Office Visit NOMS CI FM [address] [place] [address] Frantz Conley MD [address] [facility] [address] [place] [address] NOMS CI FMStart: 69-99-6504Jdisu-1-fetoprotein.tumor marker [Mass/volume] in Serum or PlasmaMercy Health Tiffin Hospitaltart: 05-31-2024Medicare Annual Wellness (AWV)Medicare Annual Wellness (AWV)NOMS HealthcareStart: 06-26-2023 End: 99-57-5297Cjfcywrhiwdz / ancillary services bhzkwxcokb26/03/2024 10:00 AM EDT Ancillary Procedure [facility] [address] [facility] [address] [place] [address] [facility]Start: 06-20-2023 End: 91-28-1606Ybxunt monitor studyHolter Or Event Net Development Manager Cardiac Services Routine PVC (premature ventricular contraction) Expected: 06/20/2023 (Approximate), Expires: 06/19/2024[facility] Service Area Work Phone: Comment on above:Expected: 06/20/2023 (Approximate), Expires: 06/19/2024Start: 06-10-2023 End: 75-94-6536Wdseyjm encounter cnuanffgp88/18/2024 10:30 AM EDT Office Visit NOMS CI FM [address] [facility] [address] [place] [address] Frantz Conley MD [address] [facility] [address] [place] [address] NOMS CI FMStart: 05-08-2023 End: 63-78-7368HXSt. [facility] Work Phone: Comment on above:Expected: 05/08/2023, Expires: 05/08/2024Start: 05-08-2023 End: 94-18-6305Ixsttfl encounter hwilobsfa44/14/2024 10:30 AM EST Office Visit NOMS CI FM [address] [facility] [facility] [address] [place] [address] Frantz Conley MD [address] [facility] [address] [place] [address] [facility] CI FMComment on above:ArrivedStart: 11-23-2022 COVID-19 Vaccine ()COVID-19 Vaccine () [facility]: 39-61-8323NhrsprhyehiezpqkEkxpfapagnbqyo [facility]: 02-21-8456Qsfmu panelLipidsBON [facility]: 88-38-6392NlusiqfcaC[facility] Clinic Foundation Work Phone: Start: 08-24-2021 End: 87-01-0282XR HEAD WO CONTRASTCT HEAD WO CONTRAST Imaging Routine Subarachnoid hemorrhage following injury, no loss of consciousness, initial encounter (HCC) Expected: 08/24/2021, Expires: 08/17/2022ON [facility] Work Phone: comment on above:Expected: 08/24/2021, Expires: 08/17/2022Start: 99-80-8249CWM High Risk: (Elderly (60+) or Population) (1 - 1-dose 75+ series)RSV High Risk: (Elderly (60+) or Population) (1 - 1-dose 75+ series)[facility]: 09-30-2019 Pneumococcal 65+ years Vaccine (2 - PCV)Pneumococcal 65+ years Vaccine (2 - PCV) [facility]: 77-08-3292Sayhxiuoapfi vaccinationPneumococcal Vaccine (2 of 2 - PCV)[facility]: 09-30-2019 Pneumococcal Vaccine: 65+ Years (2 - PCV)Pneumococcal Vaccine: 65+ Years (2 - PCV)[facility]: 76-18-0440Rvojvcyvqhgm Vaccine: 65+ Years (2 of 2 - PCV)Pneumococcal Vaccine: 65+ Years (2 of 2 - PCV)[facility]: 67-94-2127Ejetjtiaq B Vaccines (1 of 3 - Risk 3-dose series) Hepatitis B Vaccines (1 of 3 - Risk 3-dose series)[facility]: 48-27-7023JWA patients and/or patients aged 60+ years (1 - 1-dose 60+ series)RSV patients and/or patients aged 60+ years (1 - 1-dose 60+ series)[facility]: 02-93-3249Qqqqzhtrk for malignant neoplasm of colonMountain View Regional Medical [facility]: 1968 DTaP/Tdap/Td Vaccines (1 - Tdap)DTaP/Tdap/Td Vaccines (1 - Tdap)[facility]: 85-19-4917PGyU/Tdap/Td vaccine (1 - Tdap) DTaP/Tdap/Td vaccine (1 - Tdap)[facility]: 1965 Hepatitis A Vaccines (1 of 2 - Risk 2-dose series)Hepatitis A Vaccines (1 of 2 - Risk 2-dose series)[facility]: 09-45-3135Txwwv screening for proteinCKD: Urine Protein ScreeningUniversity Hospitals Samaritan Medical Center: 80-76-6041Ojhuqxbm mellitus screeningDiabetes Screening [facility]: 15-49-4423Xgzzhwmzl C screeningMountain View Regional Medical Center: 93-95-9261Hzkbblbdjl ScreenDepression ScreenMountain View Regional Medical Center: 65-01-9683Owoxlrdmkh measurementCreatinine Level [facility]: 05-08-1947Medicare Annual Wellness Visit Medicare Annual Wellness Visit (AWV)[facility]: 82-28-3222Cqlrogdmq measurementPotINTEGRIS [facility] [place] Start: 12-50-4316Ffxmpbr stimulating hormone measurementTSOklahoma ER & Hospital – EdmondOxygen therapy [Minimum Data Set]Initiate Oxygen Therapy Protocol Respiratory Care Routine As Needed until discontinued starting 07/24 [facility] Work Phone: comment on above:As Needed until discontinued starting 08/16/2021atient EducationHemorrhoids Colon polyps Esophageal varices Diverticulosis Know your [facility] Work Phone: Prostate specific Ag [Mass/volume] in Serum or Plasma PSA Lab Routine Prostate cancer screening Ordered: 03/12/2024[facility] [employer] Work Phone: Comment on above:Ordered: 03/12/2024 End: 13-22-7671Kwphki and language therapy regimeSpeech language pathology evaluation TRANSFORMATION LEAD Routine One Time for 1 Occurrences starting 08/16/2021 until 08/16/2021[facility] Work Phone: comment on above:One Time for 1 Occurrences starting 08/16/2021 until 08/16/2021[facility] Lab Routine 12/25/2024 2:15 AM [facility] Immunizations Immunization DateImmunizationNotesCare AzikutklQirvksfx27-73-4089Pcnnotxhr, High-dose Seasonal, Quadrivalent, Preservative Izabela Conley MD Work Phone: [facility] HospitalTilqysuzuh14-83-1174cbzhzusps virus vaccine, unspecified formulationGeneric ProviderLee's Summit HospitalQkjtnvdjeh62-55-7348wzvtojkqw, high dose seasonal, preservative-freeGeneric ProviderLee's Summit HospitalKssqqgecfg36-18-5840 Influenza, Seasonal, Quadrivalent, AdjuvantCj Conley MD Work Phone: [facility] HospitalPihqqudtmj24-85-8153kkjbafcfh virus vaccine, unspecified formulationGeneric ProviderLee's Summit HospitalTbclxpcugc02-43-0502Pexkszagu, High- dose Seasonal, Quadrivalent, Preservative Izabela Conley MD Work Phone: [facility] Work Phone: [phone]-44 Ad26.COV2.S (Caleb)LIBBY Conley Work Phone: [phone] [place], [place] 1156310-15-2021influenza, high dose seasonal, preservative-Izabela Conley MD Work Phone: [facility] HospitalNinldqcdye85-38-3243Kwvwhoyxp, High-dose Seasonal, Quadrivalent, Preservative Izabela Conley MD Work Phone: [phone]'s Summit HospitalPvmrjutryr51-46-7646XYNPU-11 mRNA-1273 (Moderna) LIBBY Conley Work Phone: [phone] [place], [place] 1156302-04-2021COVID-19 mRNA-1273 (Moderna)LIBBY Conley Work Phone: [phone] [place], [place] 1156310-14-2020Influenza, High-dose Seasonal, Quadrivalent, Preservative Izabela Conley MD Work Phone: [facility] HospitalZguqwdrwni51-91-2487pqacgr vaccine recombinant Frantz Conley MD Work Phone: [facility] HospitalYinpsrdoes16-70-1923pcqrox vaccine recombinant Frantz Conley MD Work Phone: [phone]'s Summit HospitalYoqwxfzult00-08-9119tiepnmdov, high dose seasonal, preservative-Izabela Conley MD Work Phone: [facility] HospitalHwddkbwbfp09-50-1298pybzszbkqoje polysaccharide vaccine, 23 valentDashanae Conley MD Work Phone: [facility] HospitalIulksdctcp78-31-9515Jnfnstvtd, High-dose Seasonal, Quadrivalent, Preservative Izabela Conley MD Work Phone: [facility] HospitalRllvypmxea61-06-4136Mnsbvdvan, High-dose Seasonal, Quadrivalent, Preservative Izabela Conley MD Work Phone: [facility] HospitalLsrgdjmypf87-00-3642odifsrhct, seasonal, injectable, preservative Izabela Conley MD Work Phone: [facility] HospitalQpdcrfhitd01-53-8166szsikyfo influenza, intradermal, preservative Izabela Conley MD Work Phone: [facility] Payers DatePayer CategoryPayerPolicy [id number] of Defense ( and others)[id number]-[id number] For Life (TFL) FOR LIFE 1.2.840.308840.1.13.647.2.7.9.956719.275157.11401-43-0625Tycxiurwuc of Defense ( and others)1.2.840.731736.1.13.693.2.7.3.910940.25997-76-8867UVIEOAQ () 1.2.840.238717.1.13.693.2.7.9.516739.325704.95799-60-3520Pihsnucids of Defense ( and others)[id number] 2012Medicare 1.2.840.885157.1.13.693.2.7.3.902458.65561-39-0526Qjmoaexcbj of Defense ( and others)[id number] [id number] [id number] 2..1.798679.3.57[id number] 2..1.947948.3.57[id number] 2.0.1.894367.3.57[id number] 2.0.1.332344.3.57[id number] 2.0.1.079407.3.57[id number] 2.840.1.600398.3.579.[id number] 2.840.1.040405.3.57[id number] 2.840.1.950782.3.579.2.0[id number] 2.0.1.085716.3.579.[id number] 2.0.1.708955.3.57[id number] 2.0.1.324121.3.57[id number] 2..1.470623.3.57[id number] 2..1.034513.3.579.2.720727-23-6079Gfwxmjt8665580 2..1.393746.3.57[id number] 2.0.1.738314.3.579.[id number] 2.0.1.886262.3.579.[id number] 2.0.1.82[id number] 2.0.1.438476.3.579.2.531 [id number] 2.840.1.2[id number] 2.840.1.1[id number] 2.16.840.1.448543.3.579.2.531 [id number] 2.16.840.1.421268.3.579.2.531 Social History DateTypeDetailFacilityStart: 75-24-0462Aiceufh smoking status NHISTobacco smoking consumption unknownCITY OF HOPE, [place] FrontierreStart: 08-16-2021 End: 06-03-1372Aallatg intakeLifetime non-drinker (finding)[facility] [employer] Phone: start: 05-97-6725Xapnael SDOH Alcohol Beuyprrjr5BYW [employer] Phone: start: 25-39-9030Vzg [facility] [employer] Phone: start: 08-06-2021 End: 60-49-1869Acpcxirk to SARS-CoV-2 (event)Not sureCITY OF HOPE, [place] [employer] Phone: start: 04-15-2023 End: 87-17-7248Cri Assigned At [facility]Start: 05-10-2021 End: 62-75-4847Nvsljtv smoking status NHISNever smoked tobacco (finding) [facility] Hospitaltart: 79-73-3634Vtq Assigned At [facility]: 08-16-2022 End: 33-08-5293Wkrajze use and exposureSmokeless tobacco non-userNOMS Healthcare Start: 04-22-2023 End: 93-20-6188Vwqbxkk intakeEx-drinker (finding)[facility] HealthcareStart: 04-15-2023 End: 51-48-6027Qjylixg of Social functionNOMS HealthcareWithin the last year, have you been afraid of your partner or ex-partner?NoNOMS HealthcareStart: 97-62-0284Mvs often do you get together with friends or relatives?Patient refusedNOMS HealthcareDo you belong to any clubs or organizations such as hindu groups, unions, fraternal or athletic groups, or school groups?YesNOMS HealthcareAre you now , , , , never or living with a partner?MarriedNOMS HealthcareHow often to you have a drink containing alcohol?NeverNOMS Healthcare(I/We) worried whether (my/our) food would run out before (I/we) got money to buy more.Never trueN[facility]S Healthcare Start: 30-57-8281Bleoaxd Commentcaffeine intake: 1-2 cups per day.[facility] HealthcareStart: 06-20-2023 End: 44-36-7454Oyhjfck smoking status NHISEx-smokerUnWood County Hospital Work Phone: End: 46-03-6167Gycpcaw of tobacco useCurrent smokerUnWood County Hospital Work Phone: End: 26-30-7845Cpxhxmu of tobacco useCigarette SmokerUnWood County Hospital Work Phone: Start: 18-31-4581Xiiber identityIdentifies as male gender (finding)[facility] Work Phone: Start: 91-92-9064Cknsbe orientationHeterosexual (finding)[facility] Work Phone: Start: 06-95-7485MujJriqhrd sex unknown (finding) [facility] Hospitaltart: 06-10-2023 End: 14-63-2321LiwGiwc (finding)[facility] Hospitaltart: 89-83-4787Jqtqahj use and exposureFormer smokeless tobacco userUnWood County Hospital Work Phone: End: 23-34-3499Iamkcdm of tobacco useUser of smokeless tobaccoUnWood County Hospital Work Phone: Goals DatePatient GoalDesired Activity/State Functional Status IzviZdsglwkrohZnyoyqYhsucatz70-40-4695Apenvsexjz ksaayy663/64UnWood [facility] Hospital Work Phone: [phone] signs66 01/27/2025 10:59 AM Claudette Limon LPNUnWood County Hospital Work Phone: [phone]lhkWood County Hospital Work Phone: [phone]x ilumyq534/64UnWood [facility] Hospital Work Phone: [phone]ea signs47 01/14/2025 1:26 PM EDT Lachelle Arvizu, [facility] HOSPITALUnWood [facility] Hospital Work Phone: [phone] County Hospital Work Phone: [phone]wmdk Health Questionnaire 2 item (PHQ-2) [Reported][facility] HospitalMbfsfxmmcb27-29-1345Qvoujbc Health Questionnaire 2 item (PHQ-2) [Reported][facility] Clinical Notes 05-23-2021 to 01-27-2025 Note Date & XefyXwshXtoypcqt41-12-4098 History of Present illness Narrative* Crescencio Marin, [...] with PCI of the ostial/proximal circumflex at [facility] he says around 4+ years ago and [...] his aspirin was recently started at the [place] [facility] when he was evaluated for syncope/near [...] tablet 1 tablet, Daily fish oil concentrate (Adams-3) 120-180 mg capsule 1,000 mg, Daily levothyroxine [...] exam, discussion and plan. documented in this encounterGeorgetown Behavioral Hospital Work Phone: [phone] 936-581611-05-2025 Instructions* Patient Instructions* Shawna Arce RN - [...] daily for 2 weeks. documented in this encounterGeorgetown Behavioral Hospital Work Phone: [phone] 802-363810-23-2025 Evaluation + Plan note* Assessment & Plan Note - Buck Barlow APRN-ROMÁN - 01/14/2025 4:26 PM EDTAssociated Problem(s): BMI 30.0-30.9,adult Reviewed the merits of healthy lifestyle choices on overall cardiovascular health. [facility] Work Phone: [phone] 240-203810-23-2025 Evaluation + Plan note* Assessment & Plan Note - LIZETH Huber - 01/14/2025 4:26 PM EDTAssociated Problem(s): Sinus node dysfunction (Multi) Dec 2024 hospitalization at [facility] due to weakness/ ? Near syncope. Tele: SR with PAC, junctional, pause 1.4 seconds 30 day MARIANN: NO AVN blocking agents 3 recorded episodes during awake hours ranging 3.1 -3.4 seconds ECG in office today: progression bifascicular block. Sinus bradycardia at 47bpm with PAC and junctional. [facility] Work Phone: [phone] 106-567110-23-2025 Miscellaneous Notes* Assessment & Plan Note - LIZETH Huber - 01/14/2025 4:26 PM EDTAssociated Problem(s): BMI 30.0-30.9,adult Reviewed the merits of healthy lifestyle choices on overall cardiovascular health. * Assessment & Plan Note - LIZETH Huber - 01/14/2025 4:26 PM EDT Associated Problem(s): Sinus node dysfunction (Multi) Dec 2024 hospitalization at [facility] due to weakness/ ? Near syncope. Tele: [...] (arteriosclerotic heart disease) 2019 [place] FINAL IMPRESSION: 1. Stable coronary artery disease. [...] METs without concerning symptoms documented in this encounterGeorgetown Behavioral Hospital Work Phone: [phone] 404-327010-23-2025 Evaluation + Plan note* Assessment & Plan Note - LIZETH Huber - 01/14/2025 4:23 PM EDTAssociated Problem(s): Cardiac and Vasculature Oct 2021 TTE EF 65% [facility] Work Phone: [phone] 364-615510-23-2025 Evaluation + Plan note* Assessment & Plan Note - LIZETH Huber - 01/14/2025 1:30 PM EDTAssociated Problem(s): ASHD (arteriosclerotic heart disease) 2019 [place]iac [place] FINAL IMPRESSION: 1. Stable coronary artery disease. [...] activity > 4 METs without concerning symptoms [facility] Work Phone: [phone] 776-724810-23-2025 History of Present illness Narrative* LIZETH Huber - 01/14/2025 1:30 PM EDT Chief Complaint I am doing fine Reason for Visit Patient presents to the office today for outpatient follow-up for hospital follow-up. Last evaluated in clinic by Dr. Marin August 2024. Presents today ambulatory with steady gait. November 2024: Hospitalized at [facility] due to weakness. He reports that he [...] pacemaker implant. Dr. Marin has personally contacted [facility] and arrangements will be [...] tablet 1 tablet, Daily fish oil concentrate (Adams-3) 120-180 mg capsule 1,000 mg, Daily levothyroxine (SYNTHROID, LEVOXYL) 88 mcg, Daily before breakfast multivitamin with minerals tablet 1 tablet, Daily omeprazole (PRILOSEC) 40 mg, Daily tiZANidine (ZANAFLEX) 4 mg, Nightly PRN Assessment: ASHD (arteriosclerotic heart disease) 2019 [facility] [facility] [place] FINAL IMPRESSION: 1. Stable coronary artery disease. [...] node dysfunction (Multi) Dec 2024 hospitalization at [facility] due to weakness/ ? Near syncope. Tele: [...] for dual-chamber permanent pacemaker implant tomorrow at [facility]. Buck Barlow MSN, MULTIMEDIA EDITOR-[employer], PMHNP-[facility] [place], [place] Please excuse any errors in grammar or translation related to this dictation. Voice recognition software was utilized to prepare this document. documented in this [facility] Work Phone: [phone] 849-514810-23-2025 Instructions* Patient Instructions* Maria Dolores Carbajal LPN [...] be sent through Care Everywhere. * Pacemakers (Slovenian) documented in this [facility] Work Phone: [phone] History of Present illness Narrative* Salima Gar NP - 01/07/2025 11:30 AM EDT Images from the original note were not included. Subjective Patient ID: Pankaj Payne is a 79 y.o. male who presents for [facility] follow up. Flowsheet Row Patient Outreach from 12/28/2024 in [facility] with Dang Bosch LPN Hospital Information ED, Hospital or Fci Facility Discharge? Hospital Patient has been contacted within two business days of discharge Yes Diagnosis (1) Hypotension: (2) Coronary artery disease: (3) H/O heart artery stent: (4) Hyperlipidemia: (5) Steatohepatitis: (6) Portal hypertension: (7) Thrombocytopenia: (8) GAVE (gastric antral vascular ectasia): (9) Anemia: (10) Hypothyroid Discharge Date 12/26/24 Discharged To: Home Setting Discharge Hospital [facility] Engagement Call Start Time 1140 Admission Date [...] by mouth 1 (one) time each day. Adams-3 Fatty Acids (Fish Oil) 1000 MG capsule [...] He was seen following his 's at [facility] er for weakness, fatigue and cough. He [...] No follow-ups on file. documented in this [facility]10-16-2025 Instructions* Patient Instructions* Salima Gar NP - 01/07/2025 11:30 AM EDT Miralax prn added. Benzonatate added documented in this [facility]08-20-2025 Evaluation note* Diagnosis Onset Date Resolution Status Admit Date Cirrhosis, nonalcoholic acuteAugust 2024 1:26pmEsophageal varicesacuteAugust 2024 1:26pmGAVE (gastric antral vascular ectasia)acuteAugust 2024 1:26pmIron deficiency anemiaacuteAugust 2024 1:26pmMetabolic dysfunction-associated steatohepatitis (MASH)acuteAugust 2024 1:26pmMetabolic dysfunction- associated steatotic liver disease (MASLD)acuteAugust 2024 1:26pm Pancytopenia, acquiredchronicAugust 2024 1:26pm [facility] Work Phone: [phone] History of Present illness Narrative* HERMES Campa [...] Do you have a medical power of disability attorney?: Yes Current Outpatient Medications on File [...] by mouth 1 (one) time each day. Adams-3 Fatty Acids (Fish Oil) 1000 MG capsule [...] HTN The patient is seeing a medical aide for this condition, treatment is deferred to that specialist. Correspondence from that specialist and any available testing were reviewed during today's visit. 6. 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 Correspondence from that specialist and any available testing were reviewed during today's visit. 7. Coronary artery disease involving northwestern shoshone coronary artery of northwestern shoshone heart without angina pectoris The patient is seeing a medical aide for this condition, treatment is deferred to that specialist. Correspondence from that specialist and any available testing were reviewed during today's visit. 8. Dilatation of aorta The patient is seeing a medical aide for this condition, treatment is deferred to that specialist. Correspondence from that specialist and any available testing were reviewed during today's visit. 9. History of coronary artery stent placement The patient is seeing a medical aide for this condition, treatment is deferred to that specialist. Correspondence from that specialist and any available testing were reviewed during today's visit. 10. PVCs (premature ventricular contractions) The patient is seeing a medical aide for this condition, treatment is deferred to that specialist. Correspondence from that specialist and any available testing were reviewed during today's visit. 11. Sinus arrhythmia The patient is seeing a medical aide for this condition, treatment is deferred to that specialist. Correspondence from that specialist and any available testing were reviewed during today's visit. 12. Sinus bradycardia The patient is seeing a medical aide for this condition, treatment is deferred to that specialist. Correspondence from that specialist and any available testing were reviewed during today's visit. 13. Abnormal LFTs The patient is seeing a medical aide for this condition, treatment is deferred to that specialist. Correspondence from that specialist and any available testing were reviewed during today's visit. 14. Diverticulosis of colon The patient is seeing a medical aide for this condition, treatment is deferred to that specialist. Correspondence from that specialist and any available testing were reviewed during today's visit. 15. Gastroesophageal reflux disease without esophagitis The patient is seeing a medical aide for this condition, treatment is deferred to that specialist. Correspondence from that specialist and any available testing were reviewed during today's visit. 16. 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 Correspondence from that specialist and any available testing were reviewed during today's visit. 23. Pancytopenia, acquired (CMS-HCC) The patient is seeing a medical aide for this condition, treatment is deferred to [...] (HCC) The patient is seeing a medical aide for this condition, treatment is deferred to that specialist. Correspondence from that specialist and any available testing were reviewed during today's visit. 29. Other secondary pulmonary hypertension (HCC) The patient is seeing a medical aide for this condition, treatment is deferred to that specialist. Correspondence from that specialist and any available testing were reviewed during today's visit. 30. Grade II diastolic dysfunction The patient is seeing a medical aide for this condition, treatment is deferred to that specialist. Correspondence from that specialist and any available testing were reviewed during today's visit. Follow up for Appointment As Scheduled. VALDEZ RouseC documented in this encounterLee's Summit HospitalZbyssbwmpr53-13-8377 History of Present illness Narrative* Frantz Conley [...] by mouth 1 (one) time each day. 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 - This office visit was spent in consultation regarding the patient's current medical problems, differential diagnoses, testing/imaging results, and treatment options. Greater than 25 minutes was spent in xifl-eh-gjgv consultation and coordination of care. Follow up in about 2 months (around 12/06/2024) for Recheck. documented in this encounterLee's Summit HospitalCkduyeokio97-79-1465 History of Present illness Narrative* Crescencio Mrain DO - 09/08/2024 3:00 PM EDT Chief [...] with PCI of the ostial/proximal circumflex at [facility] he says around 4+ years ago and [...] tablet 1 tablet, Daily fish oil concentrate (Adams-3) 120-180 mg capsule 1,000 mg, Daily levothyroxine [...] exam, discussion and plan. documented in [facility] encounterGe[facility] Work Phone: [phone]) [phone] Instructions* Patient Instructions* Kina Mcduffie RN - [...] instructions on dietary changes. documented in this encounterGeorgetown [facility]al Hospital Work Phone: 1([phone]) 933-562102-27-2025 Radiology [facility]BAR[facility] Main [place] [address] [place] [address] Ultrasound Report Signed Patient: Pankaj Payne MR#: [id number] : 1945 Acct:[id number] Age/Sex: 78 / M ADM Date: 5 Loc: UL Room: Type: [facility] Attending Dr: Mick Branch MD Ordering [...] Claros Jr., DKitaOKita05/21/2024 10:23 AM Dictation Location: [place] [address] Tech: Lizzy Shraddha Transcribed By: USMAN 05/21/24 1023 Dictated By: Kartik Claros Jr, DO 05/21/24 1022 Signed By: 05/21/24 1023 [facility]02-06-2025 Evaluation note* Diagnosis Onset Date Resolution Status Admit Date Cirrhosis, nonalcoholic acuteFebruary 2024 12:56pmEsophageal varicesacuteFebruary 2024 12:56pm GAVE (gastric antral vascular ectasia)acuteFebruary 2024 12:56pmIron deficiency anemiaacuteFebruary 2024 12:56pmMetabolic dysfunction-associated steatohepatitis (MASH)acuteFebruary 2024 12:56pmMetabolic dysfunction- associated steatotic liver disease (MASLD)acuteFebruary 2024 12:56pm Pancytopenia, acquiredchronicFebruary 2024 12:56pm [facility] Work Phone: 1([phone] 265-566112-19-2024 History of Present illness Narrative* Frantz Conley [...] by mouth 1 (one) time each day. Adams-3 Fatty Acids (Fish Oil) 1000 MG capsule [...] cholecystitis 08/13/2022 Anemia CAD (coronary artery disease) ([facility]/HCC) Calculus of gallbladder with acute on chronic [...] need - Influenza, high-dose seasonal, quadrivalent, PF (GVP761) (Fluzone High Dose Quad North 0.7mL dose) Coronary artery disease involving northwestern shoshone coronary artery of northwestern shoshone heart without angina pectoris (CMS/HCC) - The patient is experiencing no symptoms from this condition currently, it is considered medicallycontrolled and no change in current therapies are planned. Mixed hyperlipidemia (CMS/HCC) - Lipid panel; Future Acquired hypothyroidism (CMS/HCC) - TSH W/REFLEX TO FT4; Future Prostate cancer screening - PSA Follow up in about 6 months (around 09/10/2024) for Wellness. documented in this encounterLee's Summit HospitalZunfwkggme64-84-3607 History of Present illness Narrative* Crescencio Marin, [...] with PCI of the ostial/proximal circumflex at [facility] he says around 3 years ago and [...] daily., Disp: , Rfl: fish oil concentrate (Adams-3) 120-180 mg capsule, Take 1 capsule (1,000 [...] exam, discussion and plan. documented in this [facility] Work Phone: 1([phone]) [phone] Instructions* Patient Instructions* Shawna Flores RN - [...] Provided instructions on exercise. documented in this [facility] Work Phone: 1([phone]) 723-549007-31-2024 [facility] History of Present illness Narrative* Crescencio [...] with PCI of the ostial/proximal circumflex at [facility] he says around 3 years ago and [...] bedtime., Disp: , Rfl: fish oil concentrate (Adams-3) 120-180 mg capsule, Take 1 capsule (1,000 [...] exam, discussion and plan. documented in this encounterUnWood County Hospital Work Phone: 1(380) 520-100103-28-2024 Instructions* Patient Instructions* Bernadette Santillan LPN - [...] Provided instructions on exercise. documented in [facility] encounterGe[facility] Work Phone: 1([phone]) 997-349802-14-2024 History of Present illness Narrative* Frantz Conley MD - 05/08/2023 10:30 AM EST Subjective Patient ID: Pankaj Payne is a 77 y.o. male who presents for Follow-up (H stay: admitted 04/30/23 dx: anemia discharged home 05/01/23 follow up with hematology was 05/07/23) and Anemia. Flowsheet Row Telephone from 05/03/2023 in [facility] with Frantz Conley MD Discharge Information ED or Hospital Discharge? Hospital Patient has been contacted within two business days of discharge Yes Discharge Date 05/01/23 Discharge Hospital [facility] Discharged To: Home Setting Engagement Call [...] by mouth 1 (one) time each day. Adams-3 Fatty Acids (Fish Oil) 1000 MG capsule [...] was discussed with Dr Sevilla, Hematology at [facility], he is following the patient and did see himin the hospital. Iron deficiency anemia, unspecified iron deficiency anemia type - Ambulatory referral to Gastroenterology; Future Other cirrhosis of liver (CMS/HCC) - US LIVER; Future Fatty liver disease, nonalcoholic - US LIVER; Future Hyperchylomicronemia (CMS/HCC) Follow up in about 4 weeks (around 06/05/2023) for Test/Lab Review. documented in this encounterLee's Summit [id number] Evaluation note* Encounter Date Diagnosis Assessment Notes Treatment Notes Treatment Clinical Notes Aug, Cirrhosis (ICD-10 - K74.60) Dr. Conley (PCP) will order lab work Repeat fibroscan in 2024 Rto 1 yr Aug,NAFLD (nonalcoholic fatty liver disease) (ICD-10 - K76.0) Aug,NASH (nonalcoholic steatohepatitis) (ICD-10 - K75.81) [employer] ([employer]) Other 05-17-2023 Consult note Author Zoila Castorena [facility] August 08, 2022 3:09pmNote Date/TimeMay 2022 2:08pmO[facility] [place] [address] Hem/Onc Consult Note - OP Signed Patient: Pankaj Payne MR#: [id number] : 1945 Acct:[id number] Age/Sex: 77 / M Type: REG RCR [...] smoking cigars while he was in the [employer] but was not a regular cigarette smoker. [...] PO QAM 04/26/21 [History Confirmed 08/08/22] omega 4-lqg-ofd-fish oil 1,000 mg (120 mg-180 mg) capsule [...] for coordination of care (as documented) and ulyv-vz-kkpl counseling of patient and/or family. Dictated By: Zoila Castorena MD DD/ 1406 Signed By: <Electronically signed by MD Zoila Castorena> 08/08/22 9191 [facility] Work Phone: 1(220) 737-857206-22-2022 Evaluation note* Encounter Date Diagnosis Assessment Notes Treatment Notes Treatment Clinical Notes Aug, Fatty liver (ICD-10 - K76.0) ENCOURAGED WATCHING DIET, EXERCISE AND WEIGHT LOSS. WILL NEED TO MONITOR IMAGING EVERY 6 MONTHS. PROCEED WITH EGD Aug,ther cirrhosis of liver (ICD-10 - K74.69) Aug,NAFLD (nonalcoholic fatty liver disease) (ICD-10 - K76.0) Aug,NASH (nonalcoholic steatohepatitis) (ICD-10 - K75.81) [employer] ([employer]) Other 05-26-2022 Hospital Discharge instructions* Instructions* Pato [...] called to the trauma nurse line at [phone] and please leave a message. Trauma is [...] Injury Discharge Instructions Thank you for choosing [facility] and [facility] for your recovery needs. The following instructions will help to ensure your comfort and that you are wellprepared for your recovery. Follow-up Visit: The office is located at: [facility] [address] [place] [address], [address], [place] [address] [x] Please have a CT scan of your head done prior to this appointment. Please also call your primary care physician to schedule an appointment for further evaluation and care. You can obtain CT head closer to home and have them electronically send the imaging to [facility] so we can see the scan You can follow up with Neurosurgery closer to home of you can do virtual visit with [facility] outpatient TOOL CARRIER Ok to restart your ASPIRIN today 08/17 [...] medications. YOU SHOULD CALL THE OFFICE AT [phone] IF YOU HAVE ANY OF THE FOLLOWING: [...] the emergency department. 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 G-Code Modifier : CH (08/17/21 1307) Goals [...] Date: 08/16/2021 Hospital day 1 Other vehicle: [employer] Past Medical History: Diagnosis Date Hyperlipidemia Hypertension [...] HISTORY: ORDERING SYSTEM PROVIDED HISTORY: [facility] TECHNOLOGIST PROVIDED HISTORY: SAH and [...] SYSTEM PROVIDED HISTORY: Impact with object riding filling hand TECHNOLOGIST PROVIDED HISTORY: Impact with object riding filling hand Decision Support Exception - unselect if not [...] most recent progress note documented in this [facility] [place] [facility] [employer] Phone: 1(397) 403-670104-19-2022 Evaluation note* Encounter Date Diagnosis Assessment Notes Treatment Notes Treatment Clinical Notes Jun, Cirrhosis (ICD-10 - K74.60) [employer] ([employer]) Other 03-01-2022 History general Narrative - Reported* Type Description Date Surgical History cholecystectomy 05/2021 Surgical History heart stent Surgical Historycataracts, bilaterally [employer] ([employer]) Other 03-01-2022 History general Narrative - Reported* Type Description Date Surgical History cholecystectomy 05/2021 Surgical History heart stent Surgical Historycataracts, bilaterallyHospitalization Historysee surgical hx [employer] ([employer]) Other Evaluation note* Diagnosis SAH (subarachnoid hemorrhage) (HCC)- Primary Subarachnoid hemorrhage Subarachnoid hemorrhage following injury, no loss of consciousness, initial encounter (HCC) Facial laceration, initial encounter Subdural hematoma (HCC) Subdural hemorrhage documented in this encounter [facility] [place] [employer] Phone: evaluation noteNo assessment information available [facility] Work Phone: Evaluation note* Diagnosis Onset Date Resolution Status Liver cirrhosis secondary to nonalcoholi c steatohepatitis (PLASCENCIA) chronicPancytopenia, acquiredchronic [facility] Work Phone: Evaluation note* Diagnosis Pancytopenia, acquired (CMS/HCC)- Primary Pancytopenia Iron deficiency anemia, unspecified iron deficiency anemia type Other cirrhosis of liver (CMS/HCC) Fatty liver disease, 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 in this encounter [facility] HealthcareEvaluation note* Diagnosis ASHD (arteriosclerotic heart disease) Coronary atherosclerosis of unspecified type of vessel, [place]western shoshone or graft History of coronary artery stent placement Ascending aorta dilation (CMS/HCC) Thoracic aneurysm without mention of rupture Iron deficiency anemia, unspecified iron deficiency anemia type PVC (premature ventricular contraction) Other premature beats Former cigarette smoker Personal history of tobacco use, presenting hazards to health documented in this encounter [facility] Work Phone: Evaluation note* Diagnosis Onset Date Resolution Status Cirrhosis, nonalcoholic acuteNon-alcoholic fatty liver diseaseacuteNonalcoholic steatohepatitis (PLASCENCIA) acute [facility] Work Phone: Evaluation note* Diagnosis ASHD (arteriosclerotic heart disease) Coronary atherosclerosis of unspecified type of vessel, [place]western [place] or graft PVC (premature ventricular contraction) Other premature beats History of coronary artery stent placement Former cigarette smoker Personal history of tobacco use, presenting hazards to health BMI 29.0-29.9,adult Bradycardia Other specified cardiac dysrhythmias documented in this encounter [facility] Work Phone: Evaluation note* Diagnosis Benign essential HTN (CMS/HCC)- Primary Flu vaccine need Coronary artery disease involving northwestern shoshone coronary artery of northwestern shoshone heart without angina pectoris (CMS/HCC) Mixed hyperlipidemia (CMS/HCC) Mixed hyperlipidemia Acquired hypothyroidism (CMS/HCC) Unspecified hypothyroidism Prostate cancer screening Special screening for malignant neoplasm of prostate documented in this encounter [facility] HealthcareEvaluation note* Diagnosis Mixed hyperlipidemia (CMS/HCC)- Primary Mixed hyperlipidemia documented in this encounter [facility] HealthcareEvaluation note* Diagnosis ASHD (arteriosclerotic heart disease) Coronary atherosclerosis of unspecified type of vessel, [place]western [place] or graft History of coronary artery stent placement PVC (premature ventricular contraction) Other premature beats BMI 30.0-30.9,adult Former cigarette smoker Personal history of tobacco use, presenting hazards to health Hyperlipidemia, unspecified hyperlipidemia type documented in this encounter [facility] Work Phone: Evaluation note* Diagnosis Sinus bradycardia- Primary Other specified cardiac dysrhythmias PVCs (premature ventricular contractions) Other premature beats Coronary artery disease involving [place]western shosh[place] coronary artery of northwestern shoshone heart without angina pectoris 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-HCC) Pancytopenia Former cigarette smoker Personal history of tobacco use, presenting hazards to health Mixed hyperlipidemia Mixed hyperlipidemia Situational anxiety Unsteadiness on feet Esophageal varices without bleeding (HCC) Esophageal varices without mention of bleeding Other secondary pulmonary hypertension (HCC) Grade II diastolic dysfunction documented in this encounter [facility] HealthcareEvaluation note* Diagnosis Onset Date Resolution Status Admit Date Cirrhosis, nonalcoholic acuteAugust 2024 1:26pmEsophageal varicesacuteAugust 2024 1:26pm Metabolic dysfunction-associated steatohepatitis (MASH)acuteAugust 2024 1:26pm [facility] Work Phone: Evaluation note* Diagnosis Sinus node dysfunction (Multi)- Primary ASHD (arteriosclerotic heart disease) Coronary atherosclerosis of unspecified type of vessel, [place]western [place] or graft BMI 30.0-30.9,adult documented in this encounter [facility] Work Phone: Evaluation note* Diagnosis Hospital discharge follow-up- Primary Other follow-up examination Cough, unspecified type Constipation, unspecified constipation type documented in this encounter [facility] HealthcareEvaluation note* Diagnosis Sinus node dysfunction (Multi)- Primary ASHD (arteriosclerotic heart disease) Coronary atherosclerosis of unspecified type of vessel, [place]western sh[place] or graft BMI 30.0-30.9,adult Localized edema Edema Sinus node dysfunction (Multi) PVC (premature ventricular contraction) Other premature beats History of coronary artery stent placement ASHD (arteriosclerotic heart disease) Coronary atherosclerosis of unspecified type of vessel, northwestern sh[place] or graft Ascending aorta dilation Thoracic aneurysm without mention of rupture Former cigarette smoker Personal history of tobacco use, presenting hazards to health BMI 31.0-31.9,adult CHF (congestive heart failure), NYHA class I, unspecified failure chronicity, diastolic (Multi) documented in this encounter [facility] Work Phone: History and physical note Author Mick Branch [facility] October 23, 2023 10:14amNote Date/TimeJuly 2023 10:14[place] [address] Gastroenterology H&P Signed Patient: Pankaj Payne MR#: [id number] : 1945 Acct:[id number] Age/Sex: 78 / M Adm Date: 4 Loc: Room: Type: [facility] Attending Dr: Mick Branch MD [...] Mick Branch MD> 10/23/23 1014 [facility] Work Phone: Hospital Discharge instructions Additional Instructions [...] cancer screening. -Continue to follow with your production support consultant Dr. Sevilla. -Notify the doctor if you have any problems. -Follow up with PCP. - Office number [phone].[facility] Work Phone: reason for referral (narrative)* Consultation (Routine) - AuthorizedSpecialtyDiagnoses / ProceduresReferred By Contact Referred To ContactGastroenterology Diagnoses Iron deficiency anemia, unspecified iron deficiency anemia type Procedures CT OFFICE/OUTPATIENT NEW HIGH [facility] 60 MINUTES Frantz Conley MD [address] [facility] [address] [place] [address] Mick Branch MD [address] [facility] [address] [place] [address] Referral IDStatusReasonStart DateExpiration DateVisits RequestedVisits [id number] Specialty Services Required / [facility] for referral (narrative)No reason for referral information availableAdams County [facility] Work Phone: Reozcc for visit NarrativePT HERE AT REQUEST OF DR DAY FOR EVALUATION AND TREATMENT OF CIRRHOSIS, REFERRAL NOTE RECEIVEDAllentown Moodlerooms Other Summary Purpose Family History No Family [...] 9:52am Hospital Course Note MR#: [id number] [facility] Pt. Name: Pankaj Payne Admitted: [...] injury, no loss of consciousness, initial encounter ([facility]) Procedures CT HEAD WO CONTRAST Pato Grissom, MULTIMEDIA EDITOR - TOOL CARRIER [address] [place] [address] Referral IDStatusReasonStart DateExpiration DateVisits RequestedVisits [id number]/2/20226/[id number] / ProceduresReferred By ContactReferred To ContactCardiology Diagnoses PVC (premature ventricular contraction) Procedures Holter Or Event Net Development Manager Crescencio Marin, DO [address], [address] [place] [phone] Referral IDStatusReasonStart DateExpiration DateVisits RequestedVisits [id number] [id number] / ProceduresReferred By ContactReferred To Contact Diagnoses PVC (premature ventricular contraction) Procedures ECG 12 Lead Crescencio Marin, DO [address], [facility] [address] [place] [phone] Referral IDStatusReasonStart DateExpiration DateVisits RequestedVisits [id number]/28/20243/28/904346FwnqsexigAfkgqckll / Procedures Referred By ContactReferred To ContactCardiology Diagnoses ASHD (arteriosclerotic heart disease) Procedures Follow Up In Cardiology Crescencio Marin, DO [address], [address] [place], [place] [phone] Crescencio Marin, DO [address], [place] [phone] Referral IDStatusReasonStroselle DateExpiration DateVisits RequestedVisits [id number]/28/20243/28/629393QbtikisdwSxglqqjrv / Procedures Referred By ContactReferred To Contact Diagnoses PVC (premature ventricular contraction) Bradycardia Procedures ECG 12 Lead Crescencio Marin, DO [address], [address] [place], [place] [phone] Referral IDStatusReasonStart DateExpiration DateVisits RequestedVisits [id number]/9/202410/9/778074Mxlhtnho IDStatusReasonStart Date Expiration DateVisits RequestedVisits [id number]/9/2024 Chief Complaint and Reason for Visit Chief [...] section and content) DATE CREATED AUTHOR 03/05/2018 [facility] DATE CREATED AUTHOR AUTHOR'S ORGANIZ ATION 11/12/2018 [facility] DATE CREATED AUTHOR AUTHOR'S ORGANIZ ATION 06/08/2021 [facility] DATE CREATED AUTHOR AUTHOR'S ORGANIZ ATION 08/20/2021 [facility] DATE CREATED AUTHOR AUTHOR'S ORGANIZ ATION 11/15/2021 [facility] DATE CREATED AUTHOR AUTHOR'S ORGANIZ ATION 07/11/2024 [facility] DATE CREATED AUTHOR AUTHOR'S ORGANIZ ATION 01/09/2025 [facility] DATE CREATED AUTHOR AUTHOR'S ORGANIZ ATION 01/26/2025 [facility] DATE CREATED AUTHOR AUTHOR'S ORGANIZ ATION 01/28/2025 [facility] Reason for Visit (unrecogniz ed section and content) ReasonCommentsHead InjuryReasonCommentsFollow-upTBH stay: admitted 04/30/23 dx: anemia discharged home 05/01/23 follow up with hematology was 05/07/23AnemiaReason CommentsNew Patient VisitReferral for CADSpecialtyDiagnoses / ProceduresReferred By ContactReferred To Contact Diagnoses PVC (premature ventricular contraction) Procedures ECG 12 Lead Crescencio Marin, DO [address], [address] [place] [address] Referral IDStatusReasonStart DateExpiration DateVisits RequestedVisits [id number]/28/20243/28/205679SrmhkbZhmrepkmZdvipn-nn8 month SpecialtyDiagnoses / ProceduresReferred By ContactReferred To ContactCardiology Diagnoses ASHD (arteriosclerotic heart disease) Procedures Follow Up In Cardiology Crescencio Marin, DO [address], [address] [place], [place] [phone] Crescencio Marin, DO [address], [address] [place] [phone] Referral IDStatusReasonStart DateExpiration DateVisits RequestedVisits [id number]/28/20243/28/581765MteawnPiijbzkmKcljbattmpifMwoaqa Onset DateCommentsMed Iignkr4704/22/2024ReasonCommentsFollow-up8 month visit for cad.SpecialtyDiagnoses / ProceduresReferred By ContactReferred To Contact Cardiology Diagnoses ASHD (arteriosclerotic heart disease) Procedures Follow Up In Cardiology Crescencio Marin DO [facility] [facility] [place] [address] Phone: tel: fax: Crescencio Marin, DO [address] [facility] [address], [address] [place] [address] Phone: tel: fax: Referral IDStatusReasonStart DateExpiration DateVisits RequestedVisits [id number]/9/202410/9/507759RdgsztPoywpnipPqsctacyzmlUskupq CommentsMedicare Annual Wellness Visit SubsequentReasonCommentsFollow-upBellevue discharge 12/25. [...] Romero RN) * 0546 (Given - Provider: Remedios Polanco RN) * 1400 (Due) * 0 [...] 2015 (Unheld by provider - Provider: Rishi Arteaga DO) * 2119 (Given - Provider: Josephine [...] 2023Team MemberRelationshipSpecialtyStart DateEnd Date Frantz Conley MD [address] [place] [address] PCP - GeneralInternal Medicine08/16/21 Team Status: Inactive [...] Date End Date Frantz Conley MD [address] [place] [address] PCP - [facility]08/08/22 Frantz Conley MD [address] [place] [address] PCP - [facility]08/16/22Team MemberRelationshipSpecialtyStart DateEnd Date Frantz Conley MD [address] [place] [address] PCP - [facility]08/08/22 Frantz Conley MD [address] [place] [address] PCP - [facility]08/16/22Team MemberRelationshipSpecialtyStart DateEnd Date Frantz Conley MD [address] [place] [address] PCP - [facility]06/20/23 Team Status: Inactive Member Role Status Dates [...] Team MemberRelationshipSpecialtyStart DateEnd Frantz Conley MD [address] [place] [address] PCP - GeneralInternal Medicine08/08/22 Frantz Conley MD [address] [place] [address] PCP - [facility]08/16/22Team MemberRelationshipSpecialtyStart DateEnd Date Frantz Conley MD [address] [place] [address] - [address] [facility]/08/22 Frantz Conley MD [address] [place] [address] PCP - [facility]08/16/22Team MemberRelationshipSpecialtyStart DateEnd Date Frantz Conley MD [address] [place] [address] - [address] [facility]08/08/22 Frantz Conley MD [address] [place] [address] PCP - [facility]08/16/22Team MemberRelationshipSpecialtyStart DateEnd Date Frantz Conley MD [address] [place] [address] PCP - GeneralInternal Medicine08/08/22 Frantz Conley MD [address] [place] [address] PCP - [facility]08/16/22 Team Status: Inactive Member Role Status Dates [...] MemberRelationshipSpecialtyStart DateEnd Date Frantz Conley MD [address] [place] [address] PCP - GeneralInternal Medicine06/20/23Team MemberRelationshipSpecialtyStart Date End Date Frantz Conley MD [address] [place] [address] PCP - GeneralInternal Medicine08/08/22 Frantz Conley MD [address] [place] [address] PCP - [facility]08/16/22Team MemberRelationshipSpecialtyStart DateEnd Date Frantz Conley MD [address] [place] [address] PCP - GeneralInternal Medicine08/08/22 Frantz Conley MD [address] [place] [address] PCP - [facility]08/16/22Team MemberRelationshipSpecialtyStart DateEnd Date Frantz Conley MD [address] [place] [address] PCP - [facility]08/08/22 Frantz Conley MD [address] [place] [address] PCP - [facility]08/16/22 Team Status: Inactive Member Role Status Dates [...] MemberRelationshipSpecialtyStart DateEnd Date Frantz Conley MD [address] [place] [address] PCP - [facility]08/08/22 Frantz Conley MD [address] [place] [address] PCP - [facility]08/16/22 Team Status: Active Member Role Status Dates Alex Marin DO Food Order Expediter Active Team Status: Inactive Member Role Status Dates Rc Hernandez MD Attending Provider Active Sta rt: December 25, 2024 End: December 25, 2024Team MemberRelationshipSpecialtyStart DateEnd Date Frantz Conley MD [address] [facility] [address] [place] [address] [address] - [address] [facility]06/20/23Team MemberRelationshipSpecialtyStart Date End Date Frantz Conley MD [address] [facility] [address] [place] [address] [address] - [address] [facility]08/08/22 Frantz Conley MD [address] [facility] [address] [place] [address] PCP - [facility]08/16/22Team MemberRelationshipSpecialtyStart DateEnd Date Frantz Conley MD [address] [facility] [address] [place] [address] PCP - [facility]06/20/23 Goals (unrecognized section and content) Goals may [...] BE BASED ON THE PRIMARY CLINICAL RECORDS. [employer] [facility]. provides no warranty or guarantee of the accuracy or completeness of information in this document.
[2025-01-29 10:52] LABS: NT Pro B Type Natriuretic Pept 515.0 pg/mL (<=1800.0)
== END 2025-01-29 09:12 | disposition home or self-care (01) ==
LOC: LAB 09:12
PROVIDERS: PCP Internal Medicine; Visit Provider Internal Medicine Cardiovascular Disease
DX: R60.0 Localized edema (principal); I49.5 Sick sinus syndrome; I25.10 Atherosclerotic heart disease of native coronary artery without angina pectoris; I77.810 Thoracic aortic ectasia; I50.30 Unspecified diastolic (congestive) heart failure
CPT/HCPCS: 36415; 83880

== ENCOUNTER 2025-02-08 08:56 | Outpatient (OUT) | payer MEDICARE, OTHER, SELFPAY ==
--- OUTSIDE RECORDS SUMMARY | 2025-02-08 09:05 | XMS_ITS | CCD ---
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 Name Role Phone Zahler, Hardeep Unavailable Unavailable [...] Unavailable Frantz Conley MD Primary Care Provider [phone] SHANTANU MARIE Consulting Unavailable FRANTZ CONLYE Primary Care Unavailable HELENA BARRERA Admitting Unavailable [...] Admitting Unavailable MOE, DR CARVAJAL Attending Unavailable DR KARL MENON Consulting Unavailable DR FRANTZ CONLEY Primary Care Unavailable LIBBY Conley Primary Care Provider MD Mick Branch Attending Provider LIBBY Conley Attending Provider Jarvis II Fratnz Primary Care Provider [phone] LIBBY Conley Referring Provider MD Zoila Castorena Attending Provider MD Mick Branch Attending Provider [phone] MD Jose Manning Attending Provider Frantz Conley MD Primary Care Provider Frantz Conley MD Unavailable [phone] MD Jose Manning Attending Provider Jarvis, LIBBY Landry Primary Care Provider Jarvis, LIBBY Landry Attending Provider [phone] Frantz Conley MD Primary Care Provider Jarvis, LIBBY Landry Primary Care Provider [phone] MD Mick Branch Attending Provider [phone] Jarvis IIFrantz Primary Care Provider Mick Branch MD Attending Provider Jarvis IIFrantz Primary Care Provider Mick Branch MD Attending Provider [phone] Rc Hernandez MD Attending Provider FRANTZ CONLEY [...] Maria G De La Paz Consulting Unavailable Leisa Jennings Admitting Unavailable Sofia Mendenhall Consulting Unavailable Flora Sevilla Consulting Unavailable Jayashree [...] Mario Consulting Unavailable Lucian Pickens Consulting Unavailable Daromar Obaycarolh King Consulting Unavailable Dayana Barlow Consulting Unavailable Catherine Farr Consulting Unavailable Parvez Ritchie Consulting Unavailable Frantz Smallwood Consulting Unavailable Erum Gifford Consulting Unavailable Henry Cain Consulting Unavailable Krystina Park Consulting Unava ilable Shabana Sherwood Consulting Unavailable Az Van Consulting Unavailable Kartik Webb Consulting Unavailable Douglas Roper Consulting Unavailable Rocky Browning Consulting Unavailable Cait Roe Consulting Unavailable Ethan Eagle Consulting Unavaila Lee Ann Ann Consulting Unavailable Juliane Thomson Consulting Unavailable Juan C Hernandezik Attending Unavailable Juan C Hernandezik Admitting Unavailable Mick Branch Attending Unavailable Mick Branch Admitting Unavailable Frantz Conley Primary Care Unavailable BUCK BARLOW Attending Unavailable FRANTZ CONLEY Primary Care Unavailable CRESCENCIO MARIN Attending Unavailable FRANTZ CONLEY Primary Care Unavailable CRESCENCIO MARIN Attending Unavailable CRESCENCIO MARIN Referring Unavailable FRANTZ CONLEY Primary Care Unavailable Leisa Jennings MD Attending Provider Leisa Jennings MD Other Provider [phone] NON STAFF Primary Care Provider Unavailabl e Medications Current Medications MedicationDrug Class(es)DatesSig (Normalized)Sig (Original)atorvastatin 20 mg oral tablet (20 sources)HMG-CoA Reductase InhibitorStart: 04-26-2021 End: 92-57-8842yrmi 1 tablet by mouth at bedtimeatorvastatin (Lipitor) 20 MG tablet Indications: Mixed hyperlipidemia Take 1 tablet (20 mg) by mouth at bedtime 100 tablet 3 10/30/2024 10/30/2025 Activebenzonatate 200 mg oral capsule (2 sources)Non-narcotic AntitussiveStart: 01-07-2025 End: 07-65-7025cetm 1 capsule by mouth three times daily as needed for cough benzonatate (Tessalon) 200 MG capsule Indications: Cough, unspecified type Take 1 capsule (200 mg) by mouth 3 (three) times a day as needed for cough for up to 10 days Do not crush or chew. 30 capsule 01/07/2025 01/17/2025 Activeclopidogrel 75 mg oral tablet (20 sources)P2Y12 Platelet InhibitorStart: 89-15-9681fdwp 1 tablet by mouth once dailyclopidogrel (Plavix) 75 MG tablet Indications: PVCs (premature ventricular contractions) Take 1 tablet (75 mg) by mouth Daily 90 tablet 3 08/27/2024 Active Start: 08-22-2021 End: 37-65-4800jjyj 1 tablet by mouth once dailyclopidogrel (PLAVIX) 75 MG tablet Take 1 tablet by mouth daily 30 tablet 3 08/22/2021 08/17/2021 Dis continued (REORDER)Start: 16-37-2467llfd 1 tablet by mouth once dailyclopidogrel (PLAVIX) 75 MG tablet Take 1 tablet by mouth daily 30 tablet 3 08/22/2021 Active Start: 04-26-2021 End: 27-63-7067kvkq 1 tablet by mouth once daily in the morningClopidogrel 75 mg tablet Active 75 MG PO Every morning April 26, 2021 1:00am Complies with drugtherapydocosahexaenoic acid 120 mg / eicosapentaenoic acid 180 mg oral capsule (6 sources)take 1 capsule by mouth once dailyfish oil concentrate ([place]-3) 120- 180 mg capsule Take 1 capsule (1,000 mg) by mouth once daily. Activetake 1 capsule by mouth three times dailyOmega-3 Fatty Acids (FISH OIL) 1000 MG CAPS Take 1,000 mg by mouth 3 times daily 0 Activeferrous gluconate 240 mg oral tablet (8 sources)take 1 tablet by mouth once dailyFerrous Gluconate (iron) 240 (27 Fe) MG tablet Take 1 tablet by mouth Daily ActiveFish Oils (3 sources)Fish Oil 1000 MG DAILY Activefurosemide 20 mg oral tablet (1 source)Loop DiureticStart: 01-27-2025 End: 15-21-2955ezvg 1 tablet by mouth once dailyfurosemide (Lasix) 20 mg tablet Indications: Localized edema Take 1 tablet (20 mg) by mouth once daily. 14 tablet 01/27/2025 01/27/2026 Activelevothyroxine sodium 0.088 mg oral tablet (20 sources)l-ThyroxineStart: 47-96-1576gdyr 1 tablet by mouth once daily Levothyroxine 88 mcg tablet Active 88 MCG PO Daily October 09, 2023 12:00am Complies with drug therapyStart: 04-26-2021 End: 52-57-5408yjnh 1 tablet by mouth once daily in [...] daily 0 Active Multivitamin preparation (12 sources)Start: 62-72-5115iwnf 1 tablet by mouth once daily in the morning Multivitamin Active 1 TAB PO Every morning April 26, 2021 12:00amStart: 71-02-4034rdvd 1 tablet by mouth once daily in the morningMultivitamin Active 1 TAB PO Every morning April 26, 2021 1:00amtake 1 tablet by mouth once daily Multivitamin - 1 tablet Orally Once a day ActiveMultivitamin Tablet (6 sources)Start: 37-32-1312xauz 1 tablet by mouth once daily in the morning Multivitamin Tablet Active 1 TAB PO Every morning April 26, 2021 1:00am Complies with drug therapyStart: 63-37-6982olpr 1 tablet by mouth once daily in the morningStart: 92-88-6414zpep 1 tablet by mouth once daily in the morning Multivitamin Tablet Active 1 TAB PO Every morning April 26, 2021 12:00am multivitamin with minerals tablet (5 sources)take 1 tablet by mouth once dailymultivitamin with minerals tablet Take 1 tablet by mouth once daily. Activetake 1 tablet by mouth once daily multivitamin with minerals tablet Take 1 tablet by mouth once daily. 0 Active [place] 5-Qby-Veb-Fish Oil (Fish Oil) 1,000 mg (120 mg-180 mg) Capsule (15 sources)Start: 67-59-9977pufz 1 capsule by mouth three times dailyOmega 8-Yws-Ttj-Fish Oil (Fish Oil) 1,000 mg (120 mg-180 mg) Capsule Active 1 CAP PO Three times daily April 26, 2021 1:00am Complies with drug therapyStart: 34-05-3252mfpr 1 capsule by mouth three times dailyStart: 90-50-8054ovnw 1 capsule by mouth three times dailyOmega 7-Cei-Gce-Fish Oil (Fish Oil) 1,000 mg (120 mg-180 mg) Capsule Active 1 CAP PO Three times daily April 26, 2021 12:00amStart: 03-59-3103yobq 1 capsule by mouth three times dailyOmega 5-Gyy-Ktu-Fish Oil (Fish Oil) 1,000 mg (120 mg-180 mg) Capsule Active 1 CAP PO Three times daily April 26, 2021 1:00amOmega-3 Fatty Acids (Fish Oil) 1000 MG capsule delayed-release (20 sources)Start: 15-20-6060tebo 1 capsule by mouth once dailyOmega-3 Fatty Acids (Fish Oil) 1000 MG capsule delayed-release Take 1 capsule by mouth 1 (one) timeeach day. 09/13/2014 ActiveStart: 19-19-0980jzhq 1 capsule by mouth once dailyOmega-3 Fatty Acids (Fish Oil) 1000 MG capsule delayed-release Take 1 capsule by mouth 1 (one) timeeach day. 0 09/13/2014 Activeondansetron (ZOFRAN- ODT) disintegrating tablet 4 mg (1 source)Start: 61-07-4413mhxlbeehqfx (ZOFRAN-ODT) disintegrating tablet 4 mg polyethylene glycol 3350 70068 mg powder for oral solution (4 sources)Osmotic LaxativeStart: 01-07-2025 End: 46-23-0320dhkp 17 g by mouth every twenty-four hours as needed for constipation and constipationpolyethylene glycol, PEG, 3350 (Miralax) 17 g packet Indications: Constipation, unspecified constipation type Take 17 g by mouth Daily as needed (constipation) 30 packet 01/07/2025 02/06/2025 Active Start: g, Oral, DAILY, First dose on Sat08/16/21 at 2030, Until Discontinuedpotassium chloride 10 meq extended release oral tablet (1 source)Start: 01-27-2025 End: 54-17-2501smqs 1 tablet by mouth once dailypotassium chloride CR (Klor-Con) 10 mEq ER tablet Indications: Localized edema Take 1 tablet (10 mEq) by mouth once daily. Do not crush, chew, or split. 14 tablet 01/27/2025 01/27/2026 Active tiZANidine 4 mg oral tablet (20 sources)Central alpha-2 Adrenergic AgonistStart: 28-14-8168asGEYeqiaa (Zanaflex) 4 MG tablet Indications: Muscle cramps TAKE 1 TABLET DAILY AT NIGHT TIME NEEDED 90 tablet 3 06/08/2024 ActiveStart: 76-98-7603jzgx 1 tablet by mouth twice daily as neededTizanidine 4 mg tablet Active 4 MG PO Twice daily as needed for muscle spasticity October 09, 2023 12:00am FreeTextSi tablet as needed Orally bid prn; Note: Source Status: Taking; Provider: Sarina Barton ( ) Complies with drug therapyStart: 04-26-2021 End: 13-39-1284vhms 1 tablet by mouth once daily at [...] (Original)acetaminophen 500 mg oral tablet (1 source)Start: 17-17-5086ymnh 1 dose by mouth three times daily1,000 mg, Oral, EVERY 8 HOURS SCHEDULED (3 times per day), First dose on Sat08/16/21 at 2200, UntilDiscontinued Maximum dose of acetaminophen is 4000 mg from all sources in 24 hours.acetaminophen 325 mg / HYDROcodone bitartrate 5 mg oral tablet (15 sources)Opioid AgonistStart: 05-10-2021 End: 67-63-6243gqbu 1 tablet by mouth every six hours as needed for pain Hydrocodone-Acetaminophen 5-325 mg tablet Discontinued 1 TAB PO Q6H as needed for pain 30 7 0 May 10, 2021 September 19, 2021 11:42am Calculus of gallbladder with cholecystitis Calculus of gallbladder with chronic cholecystitis without obstructionaspirin 81 mg delayed release oral tablet (20 sources)Platelet Aggregation Inhibitor, Nonsteroidal Anti-inflammatory Drug Start: 04-26-2021 End: 58-39-5632wjrg 1 tablet by mouth once daily in the morningAspirin 81 mg Tablet,Delayed Release (Dr/Ec) Discontinued 81 MG PO Every morning April 2621:00am September 17, 2023 11:09amtake 1 tablet by mouth once dailyaspirin 81 MG chewable tablet Take 81 mg by mouth daily 0 Activecarvedilol 3.125 mg oral tablet (20 sources)alpha-Adrenergic Yadira, beta-Adrenergic BlockerStart: 10-23-2023 End: 46-63-7786fwul 1 tablet by mouth twice daily at mealtimeCarvedilol 3.125 mg tablet Discontinued 3.125 MG PO Twice daily 60 30 11 April 30, 2024 2:13pm A ugust 2024 1:37pm must administer with a meal/foodferrous sulfate 325 mg oral tablet (2 sources) End: 13-23-1780uyhs 1 tablet by mouth at mealtimeferrous sulfate 325 (65 Fe) MG tablet Take 325 mg by mouth in the morning. Take with meals. 10/20/2024 Discontinued (Other)meclizine hydrochloride 25 mg oral tablet (11 sources)AntiemeticStart: 09-17-2023 End: 57-76-2895nixk 1 tablet by mouth once dailyMeclizine 25 mg tablet Discontinued 25 MG PO Daily September 17, 2023 12:00am October 09, 2023 8:46amtake 1 tablet by mouth every twenty-four hoursMeclizine HCl 25 MG 1 tablet Orally once a day Activeomeprazole 40 mg delayed release oral capsule (20 sources)Proton Pump InhibitorStart: 12-05-2023 End: 71-93-5262kqfg 1 capsule by mouth once dailyOmeprazole 40 mg capsule,delayed release(DR/EC) Discontinued 40 MG PO Daily April 30, 2024 2:14pm April 30, 2024 2:25pm HeartburnStart: 04-26-2021 End: 88-11-6370pdvt 1 capsule by mouth twice daily as needed for gastroesophageal reflux diseaseOmeprazole 40 mg capsule,delayed release(DR/EC) Discontinued 40 MG PO Twice daily as needed for Heartburn September 17, 2023 11:10am April 30, 2024 2:21pmpantoprazole 40 mg delayed release oral tablet (1 source)Proton Pump InhibitorStart: 81-93-1786zlom 40 mg by mouth once daily before bqemuxdqv28 mg, Oral, DAILY BEFORE BREAKFAST, First dose on Nancy 08/17/21 at 0730, Until Discontinued Do not crush or break. Substituted for Omeprazole (PRILOSEC).1000 ml sodium chloride 9 mg/ml injection (4 sources)Start: 08-16-2021 End: .9 % sodium chloride infusionStart: 03-45-9892IfthfUXKlkl, at 5- 250 mL/hr, PRN, if patient [...] or less into rate field of order.Start: 39-50-6304ibcd 1 dose intravenously twice daily5-40 mL, IntraVENous, [...] Midline or Central Line = 20 mL/lumenStart: 99-22-9018pebp 5-40 mL intravenously once as needed5-40 mL, [...] 20 mL/lumentherapeutic multivitamin-minerals 1 tablet (1 source)Start: 16-34-5352kclr 1 tablet by mouth once daily1 tablet, Oral, DAILY, First dose on Sat08/16/21 at 2030, Until Discontinued Problems Active Problems Problem ClassificationProblemDateDocumented DateEpisodic/Chronic Administrative/social admission (2 sources)Patient encounter status; Translations: [Other specified counseling] 45-28-6203PtypmecdHkucukm disorders (20 sources)Anxiety; Translations: [Other specified anxiety disorders]Onset: 467673-47-3848KmhkeeeRjmzhh; peripheral; and visceral artery aneurysms (20 sources)Thoracic aortic aneurysm, without rupture; Translations: [Dilatation of aorta]Onset: 06-93-5136EamlmdzPsagwow dysrhythmias (20 sources)Multiple premature ventricular complexes; Translations: [Ventricular premature depolarization]Onset: 833898-38-0478FovgdhxTsmdbeztuom and hemorrhagic disorders (3 sources)Thrombocytopenia, unspecified; Translations: [Platelet count below reference range]Onset: 772336-79-8599KbmutpsCzcfrji on above:Chronic Conduction disorders (2 sources)Sinus node zfzbyjdyjuo82-82-2989AevpzaeTiokzhkfbc heart failure; nonhypertensive (3 sources)Congestive heart failure; Translations: [Unspecified diastolic (congestive) heart failure]Onset: 212608-56-3893IrpcqdmDjwnwqfw atherosclerosis and other heart disease (20 sources)Old myocardial infarction; Translations: [Coronary arteriosclerosis] Onset: 894363-15-9400MyuoasxDeqlbsca atherosclerosis and other heart disease (3 sources)Presence of coronary angioplasty implant and graft; Translations: [PRESENCE COR ANGPLSTY IMPLANT AND GRAFT]Onset: 47-50-6953EtsxiudfYxcewquyzq and other anemia (20 sources)Acquired pancytopenia; Translations: [Other pancytopenia]Onset: 937363-52-2604MzvgcbmNvdcjgpjni and other anemia (4 sources)Other pancytopenia; Translations: [Other pancytopenia]09-28-2022 ChronicDeficiency and other anemia (2 sources)Iron deficiency anemia, unspecified; Translations: [Iron deficiency anemia, unspecified]20-21-5912HvwuaozbTpcillegj of lipid metabolism (20 sources)Hypertriglyceridemia; 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]Onset: 967786-16-6371DaxmuvxPfvunrmhgagfhe and diverticulitis (20 sources)Diverticulosis of colon; Translations: [Diverticulosis of large intestine without perforation or abscess without bleeding]Onset: 08-13-2022 87-08-7230YzliimuG Codes: Struck by; against (1 source)Striking against or struck by other objects, initial encounter; Translations: [STRIKING AGNST/STRUCK OTH OBJ INIT]Onset: 88-82-3442Rhqoweec Esophageal disorders (20 sources)Gastroesophageal reflux disease; Translations: [Gastro-esophageal reflux disease without esophagitis]Onset: 325077-70-8706BrpziyeGidhuwgla hypertension (20 sources)Benign essential hypertension; Translations: [Essential (primary) hypertension]Onset: 710699-80-2728RigcqwyEeblsszqq (20 sources)Nonalcoholic steatohepatitis; Translations: [Nonalcoholic steatohepatitis (PLASCENCIA)]Onset: 09-13-2021 Resolved: 05-76-6819SypugcyVooifmalywor with complications and secondary hypertension (20 sources)Hypertensive heart AND chronic kidney disease with congestive heart failure; Translations: [Hypertensive heart and chronic kidney disease with heart failure and stage 1 through stage 4 chronic kidneydisease, or unspecified chronic kidney disease]Onset: 686050-26-9864YnepfnsOnydiyprrnjsp and screening for infectious disease (2 sources)Needs influenza immunization; Translations: [Encounter for immunization]03-30-3245BcpinrcsEgqvjjduygpe injury (5 sources)Subarachnoid hemorrhage due to traumatic injury; Translations: [Traumatic subarachnoid hemorrhage without loss of consciousness, initial encounter]Onset: 33-01-2576WldofcxwImgtqpncimclg mental health disorders (20 sources)Chronic insomnia; Translations: [Psychophysiologic insomnia]Onset: 249526-53-3499UfejiqjLjrdwtyrvek deficiencies (20 sources)Vitamin D deficiency; Translations: [Vitamin D deficiency, unspecified]Onset: 066709-81-1819PrxsptnKqqx wounds of head; neck; and trunk (3 sources)Facial laceration ; Translations: [Laceration without foreign body of other part of head, initial encounter]Onset: 89-48-1284AwlxgeyhArrde aftercare (1 source)snf (current) use of aspirin; Translations: [JANITORIAL TECH CURRENT USE OF ASPIRIN]Onset: 87-00-1144PrmzjplhMsybg aftercare (1 source)snf (current) use of antithrombotics/antiplatelets; Translations: [JANITORIAL TECH ANTITHROMBOT/ANTIPLATLETS]Onset: 77-16-0453Frnvlqqh Other aftercare (2 sources)Post-discharge follow-up; Translations: [Encounter for follow-up examination after completed treatment for conditions other than malignant neoplasm]33-23-7294VibryccxVihjn and ill-defined heart disease (10 sources)Diastolic dysfunction; Translations: [Other ill-defined heart diseases]Onset: 426341-80-7901VetfobvTcpnw disorders of stomach and duodenum (8 sources)Vascular ectasia of gastric antrum; Translations: [Angiodysplasia of stomach and duodenum without bleeding]29-85-3632XrnroyevGiqhn disorders of stomach and duodenum (3 sources)Angiodysplasia of stomach and duodenum without bleeding; Translations: [Angiodysplasia of stomach and duodenum without mention of hemorrhage]Onset: 914418-91-0979KucddhjlRdgue gastrointestinal disorders (2 sources)Constipation; Translations: [Constipation, unspecified]01-07-2025 EpisodicOther injuries and conditions due to external causes (3 sources)Unspecified injury of head, initial encounter; Translations: [UNSPECIFIED INJURY HEAD INITIAL ENC]Onset: 66-11-5377GpinkjfkYsjqw liver diseases (7 sources)Cirrhosis of liver; Translations: [Other cirrhosis of liver]Onset: 823694-42-3800IgydqbmLlfjo liver diseases (16 sources)Unspecified cirrhosis of liver; Translations: [Cirrhotic]Onset: 07-11-2021 Resolved: 79-71-2477DtddmzyIsuex liver diseases (2 sources)Non-alcoholic fatty liver; Translations: [Fatty (change of) liver, not elsewhere classified]ChronicOther liver diseases (1 source)Other cirrhosis of liverOnset: 09-13-2021 Resolved: 88-12-7788PixzyzeOmcld liver diseases (13 sources)Cirrhosis - non-alcoholic; Translations: [Unspecified cirrhosis of liver]76-17-7555AzdqtbiAnoha lower respiratory disease (2 sources)Cough; Translations: [Cough, unspecified type]21-20-1331LrwxcuxdYqpdo nervous system disorders (20 sources)Chronic pain; Translations: [Other chronic pain]Onset: 08-13-2022 33-34-6305ZfpzwqjPymsn nutritional; endocrine; and metabolic disorders (6 sources)Body mass index 30+ - obesity; Translations: [Body mass index (BMI) 30.0-30.9, adult]Onset: 973296-03-7824EaqmyxeBsrvj nutritional; endocrine; and metabolic disorders (2 sources)Body mass index (BMI) 31.0-31.9, adult; Translations: [Body mass index (BMI) 31.0-31.9, adult]Onset: 86-41-4680BukdjyvDlbqm nutritional; endocrine; and metabolic disorders (2 sources)Body mass index (BMI) 30.0-30.9, adult; Translations: [Body mass index (BMI) 30.0-30.9, adult]Onset: 10-11-7668PxxmuezClafpvsso heart disease (10 sources)Secondary pulmonary hypertension; Translations: [Other secondary pulmonary hypertension]Onset: 137295-12-0308DawjeqiXlojuqka codes; unclassified (6 sources)Localized edema; Translations: [Localized edema]Onset: 01-27-2025 76-29-6739OrsyvqjjKeariwyy codes; unclassified (1 source)Localized edema; Translations: [Localized edema]Onset: 01-27-2025 EpisodicSuperficial injury; contusion (1 source)Contusion of other part of head, initial encounter; Translations: [CONTUS OTH PRT HEAD INITIAL ENCNTR]Onset: 35-97-6932YjmelvmzWyzdprr (3 sources)Syncope and collapse; Translations: [Near syncope]Onset: 01-15-2025 86-55-0255PdkgppdiXdzfuho disorders (20 sources)Hypothyroidism, unspecified; Translations: [Acquired hypothyroidism] Onset: 052313-62-8089SgcmsiaFlhjaqxnzqii (4 sources)CONTACT W/AND (SUSP) EXPOS COVID-19; Translations: [CONTACT W/AND (SUSP) EXPOS COVID-19]Onset: 70-91-7725Udfqjgqdnpcr (1 source)COUGH, UNSPECIFIED; Translations: [COUGH, UNSPECIFIED]Onset: 04-10-2021 Past or Other Problems Problem ClassificationProblemDateDocumented DateEpisodic/ChronicAbdominal pain (20 sources)Right upper quadrant pain; Translations: [Right upper quadrant pain] Onset: 02-07-2021 Resolved: 270959-35-1224WdibcedqUplnu cerebrovascular disease (20 sources)Hemorrhage into subarachnoid space of neuraxis; Translations: [Nontraumatic subarachnoid hemorrhage, unspecified]Onset: 08-16-2021 Resolved: 77-45-6079PnctmcySlebffs tract disease (20 sources)Calculus of gallbladder without cholecystitis without obstruction; Translations: [Calculus of gallbladder with cholecystitis]Onset: 02-07-2021 Resolved: 382689-80-3114OpszgxknBrwlqvz dysrhythmias (16 sources)Bradycardia; Translations: [Bradycardia, unspecified]Onset: 360717-68-6458KwrfnwazCermprjviq and other anemia (20 sources)Iron deficiency anemia; Translations: [Iron deficiency anemia, unspecified]Onset: 313530-67-6827NiawzebfKcvp disorders (19 sources)Mood disordersOnset: 10-21-2023 Resolved: 474613-12-8364Xcrwoyb (20 sources)Onychomycosis due to dermatophyte ; Translations: [Tinea unguium] Onset: 08-13-2022 Resolved: 055102-93-4040GmghosqbFvbah acquired deformities (20 sources)Spondylolysis of cervical spine; Translations: [Spondylolysis, cervical region]Onset: 316662-84-2567GirdydvnYgpsg aftercare (1 source)Other 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 treater helper (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 therapy; Translations: [OTH JANITORIAL TECH CURRENT DRUG THERAPY]Onset: 56-55-4050BdocvlbqDewze connective tissue disease (20 sources)Cramp; Translations: [Cramp and spasm]Onset: EpisodicOther disorders of stomach and duodenum (20 sources)Indigestion; Translations: [Functional dyspepsia]Onset: 08-13-2022 Resolved: 108131-30-6231NthwqnxmLcvhv liver diseases (20 sources)Fatty (change of) liver, not elsewhere classified; Translations: [Other chronic nonalcoholic liver disease]Onset: 09-13-2021 Resolved: 64-53-5544FhnwndzQlnrk lower respiratory disease (3 sources)Pleurodynia; Translations: [PLEURODYNIA]Onset: 54-50-5014Dzpvqktv Other nervous system disorders (20 sources)Unsteady when standing; Translations: [Unsteadiness on feet]Onset: 751884-14-2126TwbzytwxEfazb nutritional; endocrine; and metabolic disorders (15 sources)Overweight in adulthood with body mass index of 25 or more but less than 30; Translations: [Body mass index (BMI) 29.0-29.9, adult]Onset: 01-01-2024 03-66-1772MkvdliyrEzgax screening for suspected conditions (not mental disorders or infectious disease) (20 sources)Liver function tests abnormal; Translations: [Other specified abnormal findings of blood chemistry]Onset: 329597-66-6203Jxjdzqas Screening and history of mental health and substance abuse codes (20 sources)Personal history of nicotine dependence; Translations: [Ex-cigarette smoker]Onset: 104568-11-7027ZnaticgsOqanntykcjro (1 source)CONTACT W/AND (SUSP) EXPOS COVID-19; Translations: [CONTACT W/AND (SUSP) EXPOS COVID-19]Onset: 60-96-5341Ztwugrxkhouo (5 sources)Onset: 06-20-2023 Resolved: Results Test NameValueInterpretationReference RangeFacilityALL CBC WITH AUTO DIFFon [id number] ABSOLUTE AUTO0.0N[facility] HealthcareBasophils/100 WBC (Bld)0.5 % 0.2 - 2.0 %[facility]OMS HealthcareEosinophils/100 WBC (Bld)5.1 %0.9 - 7.0 %NOMHca Midwest DivisionErythrocyte distribution width (RBC) [Ratio]18.5 %High11.0 - 15.0 % [facility] DivisionHematocrit (Bld) [Volume fraction]35.5 %Low42.0 - 54.0 %[facility]OMH[facility] DivisionHemoglobin (Bld) [Mass/Vol]11.0 g/dLLow14.0 - 18.0 g/dLShriners Hospitals for Children IMMATURE GRANULOCYTES ABS AUTO0.01NOMercy hospital springfieldImmature granulocytes/100 WBC (Bld)0.3 %0.0 - 0.5 %[facility] ChildrenInterpretation and review of laboratory resultsAbnormalNOMercy hospital springfieldLYMPHOCYTES ABSOLUTE AUTO0.7LowNOMercy hospital springfield Lymphocytes/100 WBC (Bld)16.8 %Low20.5 - 60.0 %[facility] HospitalH (RBC) [Entitic mass]30.8 pg25.9 - 34.0 pgNOMercy hospital springfieldMCHC (RBC) [Mass/Vol]31.0 g/dL29.9 - 35.2 g/dLShriners Hospitals for ChildrenMCV (RBC) [Entitic vol]99.4 pAKgdx33.0 - 94.0 fLShriners Hospitals for ChildrenMONOCYTES ABSOLUTE AUTO0.3NOMS HealthcareMonocytes/100 WBC (Bld)8.2 % 1.7 - 12.0 %NOMHca Midwest DivisionNEUTROPHILS ABSOLUTE AUTO2.7NOMercy hospital springfield Neutrophils/100 WBC (Bld)69.1 %43.0 - 75.0 %NOMHca Midwest DivisionPlatelet mean volume (Bld) [Entitic vol]10.4 fL9.5 - 13.5 fLNOMercy hospital springfieldTBH EO #0.2[facility] TBH NOA09PetKKRM [facility] HospitalTBH RBC3.57LowNOMS [facility]lap Memorial HospitalTBH WBC3.9LowNOMS HealthcareCLINISYNCNOMS HealthcareXR chest 2V*on 92-10-1218OJ chest 2V*[facility] Main [address] [address] XRay Report Signed Patient: Pankaj Payne MR#: [id number] : 1945 Acct:[id number] Age/Sex: 79 / M ADM Date: 01/15/25 Loc: Room: 2E1404-7 Type: REG [facility] Attending Dr: Leisa Jennings MD Copies to: [...] Sutton M.D. 01/16/2025 8:35 AM Dictation Location: [facility] Transcribed By: [facility] 01/16/25 0835 Dictated By: Markus Sutton DO 01/16/25 0833 Signed By: 01/16/25 0835[facility] Physician GroupBasic Metabolic Panelon 67-94-0791Jacki gap [Moles/Vol]6.3 mmol/LNormal6.0-15.0The [facility] Physician GroupComment on above:Performed By: #### LIPID, PSAS, TSH3 wRFLX, CMP, PT #### [facility] [address] [place] [address] [place] #### AFPTM #### [facility] ,Calcium [Mass/Vol]8.2 mg/dLLow8.6-10.3The [facility] Physician GroupComment on above:Performed By: #### LIPID, PSAS, TSH3 wRFLX, CMP, PT #### [facility] [address] [place] [address] [place] #### AFPTM #### [facility] ,Chloride [Moles/Vol]112 mmol/HNyyv10-863Qgb [facility] Physician GroupComment on above:Performed By: #### LIPID, PSAS, TSH3 wRFLX, CMP, PT #### [address] #### AFPTM #### [facility] ,CO2 [Moles/Vol]27.6 mmol/AUkoahc87.0-31.0The [facility] Physician GroupComment on above:Performed By: #### LIPID, PSAS, TSH3 wRFLX, CMP, PT #### [address] #### AFPTM #### [facility] ,Creatinine [Mass/Vol]0.69 mg/dLLow0.70-1.30The [facility] Physician GroupComment on above:Performed By: #### LIPID, PSAS, TSH3 wRFLX, CMP, PT #### [address] #### AFPTM #### [facility] ,Creatinine Clr Calc Phcjjrgq79.70NormalThe [facility] Physician GroupComment on above:Result Comment: PERFORMED BY: [place] [address] PATHOLOGIST ABORIGINAL EDUCATION TEACHER GUERA MARROQUIN M.D.Performed By: #### LIPID, PSAS, TSH3 wRFLX, CMP, PT #### [address] #### AFPTM #### [facility] ,GFR/1.73 sq M.predicted MDRD (S/P/Bld) [Vol rate/Area]mL/min/{1.73_m2}NormalThe [facility] Physician GroupComment on above:Performed By: #### LIPID, PSAS, TSH3 wRFLX, CMP, PT #### [place] [address] [place] #### AFPTM #### [facility] ,Glucose [Mass/Vol]99 mg/mSTgqglm59-724Pde [facility] Physician GroupComment on above:Result Comment: Random Glucose Reference Range is dependent on time and content of last meal. Glucose of more than 200 mg/dL in a nonstressed, ambulatory subject supports the diagnosis of Diabetes Mellitus. ADA recommended reference rangePerformed By: #### LIPID, PSAS, TSH3 wRFLX, CMP, PT #### [address] #### AFPTM #### [facility] ,Potassium [Moles/Vol]3.9 mmol/LNormal3.5-5.1The [facility] Comment on above:Performed By: #### LIPID, PSAS, TSH3 wRFLX, CMP, PT #### [address] #### AFPTM #### [facility] ,Sodium [Moles/Vol]142 mmol/EPmpies841-031Vpk [facility] Physician GroupComment on above:Performed By: #### LIPID, PSAS, TSH3 wRFLX, CMP, PT #### [address] #### AFPTM #### [facility] ,Urea nitrogen [Mass/Vol]16 mg/dLNormal7-25The [facility] Physician GroupComment on above:Performed By: #### LIPID, PSAS, TSH3 wRFLX, CMP, PT #### [address] #### AFPTM #### [facility] ,Complete Blood Count Auto Diffon 33-93-8014Isaqydxvs (Bld) [#/Vol]0.1 10*3/uL Normal0.0-0.2The [facility] Physician GroupComment on above:Result Comment: PERFORMED BY: [place] [address] PATHOLOGIST ABORIGINAL EDUCATION TEACHER GUERA MARROQUIN M.D.Performed By: #### LIPID, PSAS, TSH3 wRFLX, CMP, PT #### [place] [address] [place] #### AFPTM #### [facility] ,Basophils/100 WBC (Bld)1.2 %Normal.The [facility] Physician GroupComment on above:Performed By: #### LIPID, PSAS, TSH3 wRFLX, CMP, PT #### [place] [address] [place] #### AFPTM #### [facility] ,Eosinophils (Bld) [#/Vol]0.1 10*3/uLNormal0.0-0.45The [facility] Comment on above:Performed By: #### LIPID, PSAS, TSH3 wRFLX, CMP, PT #### [place] [address] [place] #### AFPTM #### [facility] ,Eosinophils/100 WBC (Bld)1.5 %Normal.The [facility] Physician GroupComment on above:Performed By: #### LIPID, PSAS, TSH3 wRFLX, CMP, PT #### [place] [address] [place] #### AFPTM #### [facility] ,Erythrocyte distribution width (RBC) [Ratio]21.0 %High12.0-14.8The [facility] Physician GroupComment on above:Performed By: #### LIPID, PSAS, TSH3 wRFLX, CMP, PT #### [place] [address] [place] #### AFPTM #### [facility] ,Hematocrit (Bld) [Volume fraction]37.5 %Low38.8-50.0The [facility] Physician GroupComment on above:Performed By: #### LIPID, PSAS, TSH3 wRFLX, CMP, PT #### [place] [address] [place] #### AFPTM #### [facility] ,Hemoglobin (Bld) [Mass/Vol]12.4 g/dLLow13.0-17.0The [facility] Comment on above:Performed By: #### LIPID, PSAS, TSH3 wRFLX, CMP, PT #### [address] #### AFPTM #### [facility] ,Lymphocytes (Bld) [#/Vol]0.5 10*3/uLLow1.00-4.8The [facility] Comment on above:Performed By: #### LIPID, PSAS, TSH3 wRFLX, CMP, PT #### [facility] [address] [place] [address] #### AFPTM #### [facility] ,Lymphocytes/100 WBC (Bld)11.5 %Normal.The [facility] Physician GroupComment on above:Performed By: #### LIPID, PSAS, TSH3 wRFLX, CMP, PT #### [facility] [address] [place] [address] #### AFPTM #### [facility] ,MCH (RBC) [Entitic mass]30.9 jmJgpzkh51.5-35.2The [facility] Comment on above:Performed By: #### LIPID, PSAS, TSH3 wRFLX, CMP, PT #### [facility] [address] [place] [address] [place] #### AFPTM #### [facility] ,MCV (RBC) [Entitic vol]93.7 aYNvpxpu01.5-101The [facility] Comment on above:Performed By: #### LIPID, PSAS, TSH3 wRFLX, CMP, PT #### [place] [address] [place] #### AFPTM #### [facility] ,Mean Corpuscular HGB Conc33.0 g/uVDlyvyx93.5-35.6The [facility] Comment on above:Performed By: #### LIPID, PSAS, TSH3 wRFLX, CMP, PT #### [facility] [address] [place] [address] [place] #### AFPTM #### [facility] ,Monocytes (Bld) [#/Vol]0.3 10*3/uLNormal0.0-0.8The [facility] Comment on above:Performed By: #### LIPID, PSAS, TSH3 wRFLX, CMP, PT #### [facility] [address] [place] [address] [place] #### AFPTM #### [facility] ,Monocytes/100 WBC (Bld)7.7 %Normal.The [facility] Physician GroupComment on above:Performed By: #### LIPID, PSAS, TSH3 wRFLX, CMP, PT #### [place] [address] [place] #### AFPTM #### [facility] ,Neutrophils (Bld) [#/Vol]3.5 10*3/uLNormal1.8-7.7The [facility] Comment on above:Performed By: #### LIPID, PSAS, TSH3 wRFLX, CMP, PT #### [facility] [address] [place] [address] #### AFPTM #### [facility] ,Neutrophils/100 WBC (Bld)78.1 %Normal.The [facility] Physician GroupComment on above:Performed By: #### LIPID, PSAS, TSH3 wRFLX, CMP, PT #### [facility] [address] [place] [address] [place] #### AFPTM #### [facility] ,NRBC%0.0 /100{WBC}Normal0-0.5The [facility] Physician GroupComment on above: Performed By: #### LIPID, PSAS, TSH3 wRFLX, CMP, PT #### [facility] [address] [place] [address] [place] #### AFPTM #### [facility] ,Platelet mean volume (Bld) [Entitic vol]8.6 fLNormal6.6-10.1The [facility] Physician GroupComment on above:Performed By: #### LIPID, PSAS, TSH3 wRFLX, CMP, PT #### [facility] [address] [place] [address] [place] #### AFPTM #### [facility] ,Platelets (Bld) [#/Vol]88 10*3/mYPse183-216Fak [facility] Physician GroupComment on above:Performed By: #### LIPID, PSAS, TSH3 wRFLX, CMP, PT #### [place] [address] [place] #### AFPTM #### [facility] ,RBC (Bld) [#/Vol]4.00 10*6/uLNormal3.90-5.60The [facility] Comment on above:Performed By: #### LIPID, PSAS, TSH3 wRFLX, CMP, PT #### [facility] [address] [place] [address] [place] #### AFPTM #### [facility] ,WBC (Bld) [#/Vol]4.5 10*3/uLNormal4.1-10.5The [facility] Physician GroupComment on above:Performed By: #### LIPID, PSAS, TSH3 wRFLX, CMP, PT #### [facility] [address] [place] [address] [place] #### AFPTM #### [facility] ,White Blood Count4.5 [CFU]/mLNormal4.1-10.5The [facility] Physician GroupComment on above:Performed By: #### LIPID, PSAS, TSH3 wRFLX, CMP, PT #### [facility] [address] [place] [address] [place] #### AFPTM #### [facility] ,ECG 12 lead ECGon 58-75-6276LSU 12 lead ECGMEM[facility] Main [place] [address] [place] [address] Electrocardiograph Report Signed Patient: Pankaj Payne MR#: [id number] : 1945 Acct:[id number] Age/Sex: 79 / M ADM Date: 01/15/25 Loc: Room: [address] [place] [address] Type: REG SDC Attending Dr: Leisa Jennings MD Ordering Provider: [...] previous ECGs available Confirmed by CHAUNCEY CROFT [facility] ([id number][facility] on 01/16/2025 11:39:21 AM Referred By: Electronically Signed By: MICHAELA GROSSMAN MD [facility] Transcribed By: MUS Signed By Michaela Grossman MD, [facility] 01/16/25 1139NormalThFranklin County Medical Center Physician GroupPartial Thromboplastin Timeon 54-29-9956gRAX Coag (Bld) [Time]32.3 dSzcbbc00.1-36.5The [facility] Physician GroupComment on above:Result Comment: A hematocrit value greater than 55% may lead to inaccurate results in coagulation testing. Patients having hematocrit values >55% require a special collection tube for coagulation studies. Please contact the laboratory at [phone] for redraw instructions. PERFORMED BY: [place] [address] PATHOLOGIST ABORIGINAL EDUCATION TEACHER GUERA MARROQUIN M.D.Performed By: #### LIPID, PSAS, TSH3 wRFLX, CMP, PT #### [place] [address] [place] #### AFPTM #### [facility] ,Prothrombin Time INRon 74-72-1960BWM Coag (PPP) [Relative time]1.2 {INR}Normal The [facility] Physician GroupComment on above:Result Comment: INR Therapeutic [...] LIPID, PSAS, TSH3 wRFLX, CMP, PT #### [address] #### AFPTM #### [facility] ,PT Coag (PPP) [Time]13.7 sHigh9.0-12.9The [facility] Physician GroupComment on above:Result Comment: A hematocrit value greater than 55% may lead to inaccurate results in coagulation testing. Patients having hematocrit values >55% require a special collection tube for coagulation studies. Please contact the laboratory at [phone] for redraw instructions.Performed By: #### LIPID, PSAS, TSH3 wRFLX, CMP, PT #### [place] [address] [place] #### AFPTM #### [facility] ,Urine Cultureon 05-71-4511Capfmfhj identified Cx Nom (U)No Growth 2 Days PERFORMED BY: [place] [address] PATHOLOGIST ABORIGINAL EDUCATION TEACHER GUERA MARROQUIN M.D.NormalThe [facility] Physician GroupComment on above: Performed By: #### LIPID, PSAS, TSH3 wRFLX, CMP, PT #### [place] [address] [place] #### AFPTM #### [facility] ,Urine cultureOrdered By: Rc Hernandez on 43-99-2288Hhjrtnsg identified Cx Nom (U)No Growth 2 DaysKettering Health – Soin Medical CenterALL CBC WITH AUTO DIFFon 23-95-4563ARJJIUVAQ ABSOLUTE XCCD4VOPK HealthcareBasophils/100 WBC (Bld)0.6 %0.2 - 2.0 %NOMHca Midwest DivisionEosinophils/100 WBC (Bld)3.2 %0.9 - 7.0 %[facility] Erythrocyte distribution width (RBC) [Ratio]14.3 %11.0 - 15.0 %[facility] Hematocrit (Bld) [Volume fraction]33.2 %Low42.0 - 54.0 %[facility] Hemoglobin (Bld) [Mass/Vol]10.8 g/dLLow14.0 - 18.0 g/dLShriners Hospitals for ChildrenIMMATURE GRANULOCYTES ABS AUTO0.01NOMercy hospital springfieldImmature granulocytes/100 WBC (Bld)0.3 % 0.0 - 0.5 %[facility] for ChildrenInterpretation and review of laboratory results AbnormalNOMercy hospital springfieldLYMPHOCYTES ABSOLUTE AUTO0.6LowNOMercy hospital springfield Lymphocytes/100 WBC (Bld)19.4 %Low20.5 - 60.0 %[facility] HospitalH (RBC) [Entitic mass]31.5 pg25.9 - 34.0 pgPike County Memorial HospitalHC (RBC) [Mass/Vol]32.5 g/dL29.9 - 35.2 g/dLPike County Memorial HospitalV (RBC) [Entitic vol]96.8 aKRnnk92.0 - 94.0 fLShriners Hospitals for ChildrenMONOCYTES ABSOLUTE AUTO0.2LowNSAINT FRANCIS HOSPITAL S[facility]UL[facility] HealthcareMonocytes/100 WBC (Bld)7.3 %1.7 - 12.0 %[facility] ChildrenNEUTROPHILS ABSOLUTE AUTO2.2N[facility] Neutrophils/100 WBC (Bld)69.2 %43.0 - 75.0 %[facility] for ChildrenPlatelet mean volume (Bld) [Entitic vol]11 fL9.5 - 13.5 fLShriners Hospitals for ChildrenTB EO #0.1[facility] TBH BDK19NxnQKMM [facility] RBC3.43LowNOMS [facility] WBC3.1LowNOMS HealthcareCLINISYNCNOMS HealthcareAlanine aminotransferase [Enzymatic activity/volume] in Serum or PlasmaOrdered By: Mick Branch on 12-43-9591RKS [Catalytic activity/Vol]52 U/LNormal7-52[facility] Soin Medical CenterComment on above:Performed By: #### LIPID, PSAS, TSH3 wRFLX, CMP, PT #### [facility] [address] [place] [address] [place] #### AFPTM #### [facility] ,Albumin [Mass/volume] in Serum or Plasma by Bromocresol green (BCG) dye binding methoOrdered By: Mick Branch on 68-01-5375Qlnlrbc BCG dye [Mass/Vol]3.1 g/dL Low3.5-5.7FDiley Ridge Medical CenterAlkaline phosphatase [Enzymatic activity/volume] in Serum or PlasmaOrdered By: Mick Branch on 94-41-4832AOZ [Catalytic activity/Vol]124 U/CCzad04-893HnqqckuouKettering Health – Soin Medical Center Comment on above:Result Comment: PERFORMED BY: [place] [address] PATHOLOGIST ABORIGINAL EDUCATION TEACHER GUERA MARROQUIN M.D.Performed By: #### LIPID, PSAS, TSH3 wRFLX, CMP, PT #### [facility] [address] [place] [address] #### AFPTM #### [facility] ,Aspartate aminotransferase [Enzymatic activity/volume] in Serum or Plasma Ordered By: Mick Branch on 88-17-3759XEO [Catalytic activity/Vol]58 U/LHigh 13-39[facility] Soin Medical CenterComment on above:Performed By: #### LIPID, PSAS, TSH3 wRFLX, CMP, PT #### [facility] [address] [place] [address] [place] #### AFPTM #### [facility] ,Basophils [#/volume] in Blood by Automated countOrdered By: Mick Branch on 30-09-1845Njupmyjfg (Bld) [#/Vol]0.0 10*3/uLNormal0.0-0.2FDiley Ridge Medical CenterComment on above:Result Comment: PERFORMED BY: [place] [address] PATHOLOGIST ABORIGINAL EDUCATION TEACHER GUERA MARROQUIN M.D.Performed By: #### PT, CMP, CBC #### [place] [address] USABasophils/100 leukocytes in Blood by Automated count Ordered By: Mick Branch on 40-02-1721Opbppbnkb/100 WBC (Bld)0.8 %Normal. [facility] Soin Medical CenterComment on above:Performed By: #### PT, CMP, CBC #### [place] [address] USABilirubin.total [Mass/volume] in Serum or PlasmaOrdered By: Mick Branch on 28-93-1934Ekslwkjnk [Mass/Vol]0.9 mg/dLNormal0.3-1.0 [facility] So[facility] Medical CenterComment on above:Performed By: #### LIPID, PSAS, TSH3 wRFLX, CMP, PT #### [facility] [address] [place] [address] [place] #### AFPTM #### [facility] ,Calcium [Mass/volume] in Serum or PlasmaOrdered By: Mick Branch on 11-02-2024 Calcium [Mass/Vol]7.9 mg/dLLow8.6-10.3FDiley Ridge Medical CenterComment on above:Performed By: #### LIPID, PSAS, TSH3 wRFLX, CMP, PT #### [facility] [address] [place] [address] [place] #### AFPTM #### [facility] ,Carbon dioxide, total [Moles/volume] in Serum or PlasmaOrdered By: Mick Branch on 22-41-0912YB1 [Moles/Vol]29.1 mmol/GQegukw58.0-31.0[facility] So[facility] Medical CenterComment on above:Performed By: #### LIPID, PSAS, TSH3 wRFLX, CMP, PT #### [facility] [address] [place] [address] #### AFPTM #### [facility] ,Chloride [Moles/volume] in Serum or PlasmaOrdered By: Mick Branch on 10-02-5758Bqqcdebl [Moles/Vol]110 mmol/JVuhd67-016JhyytsworKettering Health – Soin Medical CenterComment on above:Performed By: #### LIPID, PSAS, TSH3 wRFLX, CMP, PT #### [facility] [address] [place] [address] #### AFPTM #### [facility] ,Complete Blood Count Auto Diffon 19-80-4866Ekey Corpuscular HGB Conc33.5 g/dL Qkxmnp37.5-35.6The [facility] Physician GroupComment on above:Performed By: #### PT, CMP, CBC #### [facility] [address] [place] [address] USANRBC%0.0 /100{WBC}Normal0-0.5The [facility] Comment on above:Performed By: #### PT, CMP, CBC #### [place] [address] USAWhite Blood Count3.0 [CFU]/mLLow4.1-10.5The [facility] Physician GroupComment on above:Performed By: #### PT, CMP, CBC #### [place] [address] USAComprehensive Metabolic Panelon 36-55-8748Poevimt [Mass/Vol]3.1 g/dLLow3.5-5.7The [facility] Physician GroupComment on above: Performed By: #### LIPID, PSAS, TSH3 wRFLX, CMP, PT #### [place] [address] [place] #### AFPTM #### [facility] ,GFR/1.73 sq M.predicted MDRD (S/P/Bld) [Vol rate/Area]mL/min/{1.73_m2}NormalThe [facility] Physician GroupComment on above:Performed By: #### LIPID, PSAS, TSH3 wRFLX, CMP, PT #### [address] #### AFPTM #### [facility] ,Creatinine [Mass/volume] in Serum or PlasmaOrdered By: Mick Branch on 84-84-7108Llwwufnoqi [Mass/Vol]0.71 mg/dLNormal0.70-1.30[facility] So[facility] Medical CenterComment on above:Performed By: #### LIPID, PSAS, TSH3 wRFLX, CMP, PT #### [address] #### AFPTM #### [facility] ,Eosinophils [#/volume] in Blood by Automated countOrdered By: Mick Branch on 34-32-2950Iymgichimhc (Bld) [#/Vol]0.1 10*3/uLNormal0.0-0.45[facility] So[facility] Medical CenterComment on above:Performed By: #### PT, CMP, CBC #### [place] [address] USAEosinophils/100 leukocytes in Blood by Automated count Ordered By: Mick Branch on 90-70-4875Smmfzlmvzib/100 WBC (Bld)1.8 %Normal. [facility] Medical CenterComment on above:Performed By: #### PT, CMP, CBC #### [place] [address] USAErythrocyte distribution width [Ratio] by Automated count Ordered By: Mick Branch on 50-72-3895Vpndbniexsd distribution width (RBC) [Ratio]16.4 %High12.0-14.8[facility] So[facility] Medical CenterComment on above: Performed By: #### PT, CMP, CBC #### [place] [address] USAErythrocytes [#/volume] in Blood by Automated countOrdered By: Mick Branch on 73-47-2728MMS (Bld) [#/Vol]3.58 10*6/uLLow3.90-5.60 [facility] Medical CenterComment on above:Performed By: #### PT, CMP, CBC #### [facility] [address] [place] [address] USAGlucose [Mass/volume] in Serum or PlasmaOrdered By: Mick Branch on 43-91-1831Rrtpdrj [Mass/Vol]120 mg/mFVfsx58-181MwgeunygpKettering Health – Soin Medical CenterComment on above:ADA recommended reference rangeRandom [...] LIPID, PSAS, TSH3 wRFLX, CMP, PT #### [facility] [address] [place] [id number] [place] #### AFPTM #### [facility] ,Hematocrit [Volume Fraction] of Blood by Automated countOrdered By: Mick Branch on 71-14-8324Zoojjyvvsw (Bld) [Volume fraction]34.1 %Low38.8-50.0[facility] Medical CenterComment on above:Performed By: #### PT, CMP, CBC #### [facility] [address] [place] [address] USAHemoglobin [Mass/volume] in BloodOrdered By: Mick Branch on 57-27-2003Vyepbxrqds (Bld) [Mass/Vol]11.4 g/dLLow13.0-17.0[facility] Medical CenterComment on above:Performed By: #### PT, CMP, CBC #### [facility] [address] [place] [id number] USAINR in Platelet poor plasma by Coagulation assayOrdered By: Mick Branch on 76-04-5378RPQ Coag (PPP) [Relative time]1.2 {INR}Normal [facility] So[facility] Medical CenterComment on above:INR Therapeutic Range A) [...] heart valves: 3 - 4.5 PERFORMED BY: [place] [address] PATHOLOGIST ABORIGINAL EDUCATION TEACHER GUERA MARROQUIN M.D.Performed By: #### LIPID, PSAS, TSH3 wRFLX, CMP, PT #### [facility] [address] [place] [address] [place] #### AFPTM #### [facility] ,Leukocytes [#/volume] corrected for nucleated erythrocytes in Blood by Automated counOrdered By: Mick Branch on 21-50-0582TGC corrected for nucl RBC Auto (Bld) [#/Vol]3.0 10*3/uLLow4.1-10.5FDiley Ridge Medical Center Leukocytes [#/volume] in Blood by Automated countOrdered By: Mick Branch on 92-82-0793JWB (Bld) [#/Vol]3.0 10*3/uLLow4.1-10.5FDiley Ridge Medical CenterComment on above:Performed By: #### PT, CMP, CBC #### [facility] [address] [place] [address] USALymphocytes [#/volume] in Blood by Automated countOrdered By: Mick Branch on 06-79-9195Cjncmfeemvk (Bld) [#/Vol]0.5 10*3/uLLow1.00-4.8 [facility] Medical CenterComment on above:Performed By: #### PT, CMP, CBC #### [facility] [address] [place] [address] USALymphocytes/100 leukocytes in Blood by Automated count Ordered By: Mick Branch on 70-96-8055Miogxflgegx/100 WBC (Bld)15.8 %Normal. [facility] Soin Medical CenterComment on above:Performed By: #### PT, CMP, CBC #### [address] [Entitic mass] by Automated countOrdered By: Mick Branch on 98-03-2434OOD (RBC) [Entitic mass]31.9 rcJlmcvb71.5-35.2FDiley Ridge Medical CenterComment on above:Performed By: #### PT, CMP, CBC #### [address] Auto (RBC) [Mass/Vol]Ordered By: Mick Branch on 85-42-6940MTPU (RBC) [Mass/Vol]33.5 g/dL32.5-35.6FProtestant Deaconess HospitalV [Entitic volume] by Automated countOrdered By: Mick Branch on 91-14-2288DJL (RBC) [Entitic vol]95.2 sQWqpakh32.5-101[facility] Medical CenterComment on above:Performed By: #### PT, CMP, CBC #### [place] [address] USAMonocytes [#/volume] in Blood by Automated countOrdered By: Mick Branch on 97-37-2330Osibtfqou (Bld) [#/Vol]0.2 10*3/uLNormal0.0-0.8 [facility] Medical CenterComment on above:Performed By: #### PT, CMP, CBC #### [place] [address] USAMonocytes/100 leukocytes in Blood by Automated count Ordered By: Mick Branch on 93-53-3893Kbcbcjoqa/100 WBC (Bld)6.7 %Normal. [facility] Soin Medical CenterComment on above:Performed By: #### PT, CMP, CBC #### [facility] [address] [place] [address] USANeutrophils [#/volume] in Blood by Automated countOrdered By: Mick Branch on 74-03-6242Jcwstociizb (Bld) [#/Vol]2.2 10*3/uLNormal1.8-7.7 [facility] [facility] – Soin Medical CenterComment on above:Performed By: #### PT, CMP, CBC #### [facility] [address] [place] [address] USANeutrophils/100 leukocytes in Blood by Automated count Ordered By: Mick Branch on 89-87-0465Gsohjqinnww/100 WBC (Bld)74.9 %Normal. [facility] So[facility] CenterComment on above:Performed By: #### PT, CMP, CBC #### [facility] [address] [place] [address] USANo Panel InformationOrdered By: Mick Branch on 23-53-1177Ixdcgwszo GFR (CKD-EPI)> 60.0 mL/MinKettering Health [facility] Creatinine Clearance (ChemN/AFDiley Ridge Medical CenterNucleated erythrocytes [Presence] in Blood by Automated countOrdered By: Mick Branch on 06-46-5985Bwdihllmw RBC Auto Ql (Bld)0.0 /100{WBC}0-0.5FDiley Ridge Medical CenterPlatelet mean volume [Entitic volume] in Blood by Automated count Ordered By: Mick Branch on 56-71-4813Maohguyi mean volume (Bld) [Entitic vol] 8.0 fLNormal6.6-10.1FDiley Ridge Medical CenterComment on above:Performed By: #### PT, CMP, CBC #### [facility] [address] [place] [address] USAPlatelets [#/volume] in Blood by Automated countOrdered By: Mick Branch on 51-59-4144Moldhqdax (Bld) [#/Vol]102 10*3/eBQcs730-591 [facility] CenterComment on above:Performed By: #### PT, CMP, CBC #### [facility] [address] [place] [address] USAPotassium [Moles/volume] in Serum or PlasmaOrdered By: Mick Branch on 78-64-7567Dulhokxgs [Moles/Vol]3.9 mmol/LNormal3.5-5.1FDiley Ridge Medical CenterComment on above:Performed By: #### LIPID, PSAS, TSH3 wRFLX, CMP, PT #### [facility] [address] [place] [address] [place] #### AFPTM #### [facility] ,Protein [Mass/volume] in Serum or PlasmaOrdered By: Mick Branch on 11-02-2024 Protein [Mass/Vol]5.8 g/dLLow6.4-8.9[facility] CenterComment on above:Performed By: #### LIPID, PSAS, TSH3 wRFLX, CMP, PT #### [facility] [address] [place] [address] [place] #### AFPTM #### [facility] ,Prothrombin time (PT)Ordered By: Mick Branch on 42-93-0787SX Coag (PPP) [Time]13.5 sHigh9.0-12.9[facility] Medical CenterComment on above:A hematocrit value greater than 55% may lead to inaccurate results in coagulation testing. Patientshaving hematocrit values >55% require a special collection tube for coagulation studies. Please contact the laboratory at [phone] for redraw instructions.Result Comment: A hematocrit value greater than 55% may lead to inaccurate results in coagulation testing. Patients having hematocrit values >55% require a special collection tube for coagulation studies. Please contact the laboratory at [phone] for redraw instructions.Performed By: #### LIPID, PSAS, TSH3 wRFLX, CMP, PT #### [address] [place] [address] [place] #### AFPTM #### [facility] ,Serum globulin measurement by calculation (mass/volume)Ordered By: Mick Branch on 88-04-6730Viefiwtw (S) [Mass/Vol]2.7 g/dLNormalKettering Health – Soin Medical CenterComment on above:Performed By: #### LIPID, PSAS, TSH3 wRFLX, CMP, PT #### [place] [address] [place] #### AFPTM #### [facility] ,Serum or plasma albumin/globulin mass ratioOrdered By: Mick Branch on 87-60-3720Omfritd/Globulin [Mass ratio]1.1 {ratio}[facility] HospitalComment on above:Performed By: #### LIPID, PSAS, TSH3 wRFLX, CMP, PT #### [facility] [address] [place] [address] [place] #### AFPTM #### [facility] ,Serum or plasma anion gap determinationOrdered By: Mick Branch on 11-02-2024 Anion gap [Moles/Vol]5.8 mmol/LLow6.0-15.0[facility] Comment on above:Performed By: #### LIPID, PSAS, TSH3 wRFLX, CMP, PT #### [facility] [address] [place] [address] [place] #### AFPTM #### [facility] ,Sodium [Moles/volume] in Serum or PlasmaOrdered By: Mick Branch on 11-02-2024 Sodium [Moles/Vol]141 mmol/PVnqitf981-046LrgwjfybeKettering Health – [facility] Medical Center Comment on above:Performed By: #### LIPID, PSAS, TSH3 wRFLX, CMP, PT #### [facility] [address] [place] [address] [place] #### AFPTM #### [facility] ,Urea nitrogen [Mass/volume] in Serum or PlasmaOrdered By: Mick Branch on 18-58-2862Swjp nitrogen [Mass/Vol]15 mg/dLNormal7-25[facility] CenterComment on above:Performed By: #### LIPID, PSAS, TSH3 wRFLX, CMP, PT #### [facility] [address] #### AFPTM #### [facility] ,ALL BASIC METABOLIC PANELon 46-59-8181Vpvdu gap [Moles/Vol]13.1 mmol/LNOMS HealthcareCalcium [Mass/Vol]9 mg/dL8.5 - 10.1 mg/dLNOMS HealthcareChloride [Moles/Vol]111 mmol/LHigh98 - 107 mmol/LNOMS HealthcareCO2 [Moles/Vol]26.2 mmol/L21.0 - 32.0 mmol/LNOMS HealthcareCreatinine [Mass/Vol]0.89 mg/dL0.70 - 1.30 mg/dLNOTN HealthcareGFR/1.73 sq M.predicted CKD-EPI (S/P/Bld) [Vol rate/Area]>60>=60 mL/min/1.73m 2NOMS HealthcareGlucose [Mass/Vol]106 mg/dL74 - 106 mg/dLNOTN HealthcarePotassium [Moles/Vol]4.3 mmol/L3.5 - 5.1 mmol/LNOMS HealthcareSodium [Moles/Vol]146 mmol/STtku911 - 145 mmol/LNOMS HealthcareTBH EGFR-NON AF MEXICAN>60>=60 mL/min/1.73m 2NOMS HealthcareUrea nitrogen [Mass/Vol]17 mg/dL7.0 - 18.0 mg/dLNOMS HealthcareUrea nitrogen/Creatinine [Mass ratio]19.1 mg/mgNOMS HealthcareALL LIPID PROFILE (FASTING)on 60-46-7841OVGR HDL RATIO1.9NOTN HealthcareComment on above:3.3 - 4.4 LOW RISK 4.4 - 7.1 AVERAGE RISK 7.1 - 11.0 MODERATE RISK >11.0 HIGH RISK Cholesterol [Mass/Vol]113 mg/dLNINF - 200 mg/dLNOTN HealthcareCholesterol in HDL [Mass/Vol]60 mg/dL40 - 60 mg/dLMOUNTAINSTAR HEALTHCARE HealthcareComment on above:> or =60 mg/dl - LOW CARDIOVASCULAR RISK <40 mg/dl - HIGH CARDIOVASCULAR RISK Magnesium [Mass/Vol]41.4 mg/dLMOUNTAINSTAR HEALTHCARE HealthcareComment on above:<100 mg/dl OPTIMAL 100-129 mg/dl NEAR OR ABOVE OPTIMAL 130-159 mg/dl BORDERLINE HIGH 160-189 mg/dl HIGH >190 mg/dl VERY HIGH Magnesium [Mass/Vol]11.6 mg/dLShriners Hospitals for ChildrenTriglyceride [Mass/Vol]58 mg/dLNINF - 150 mg/dLCox North Ever 42-80-4330UDM [Catalytic activity/Vol]51 U/L16 - 63 U/LNOMS [facility] HospitalF Porfirio 38-23-5348QCD [Catalytic activity/Vol]46 U/LHigh15 - 37 U/LNOMS [facility] HospitalNo Panel Informationon 17-50-0015Djbqwkjcnullcd and review of laboratory resultsAbNovant Health New [facility] ALL CBC WITH AUTO DIFFon 97-47-5900Jhfeuduwuws distribution width (RBC) [Ratio] 13.8 %11.0 - 15.0 %NOMS HealthcareHematocrit (Bld) [Volume fraction]37.5 %Low 42.0 - 54.0 %NOMS HealthcareHemoglobin (Bld) [Mass/Vol]12.6 g/dLLow14.0 - 18.0 g/dLShriners Hospitals for ChildrenInterpretation and review of laboratory resultsAbnormEncompass Health (RBC) [Entitic mass]31.2 pg25.9 - 34.0 pgPike County Memorial HospitalHC (RBC) [Mass/Vol]33.6 g/dL29.9 - 35.2 g/dLPike County Memorial HospitalV (RBC) [Entitic vol]92.8 fL 80.0 - 94.0 fLShriners Hospitals for ChildrenPlatelet mean volume (Bld) [Entitic vol]10.6 fL9.5 - 13.5 fLSaint Luke's Health System VPE11CnwIAVENortheast Missouri Rural Health Network RBC4.04LowCedar County Memorial Hospital WBC3.3LowJohn J. Pershing VA Medical CenterINISYNSummerville Medical Center36on 70-94-011877Kzqo patient hasn't been seen since 2022NormalUniversMount Carmel Health SystemUS abdomen limitedon 74-78-0598SN abdomen limitedMEMORIAL HE[facility] [place] [address] [place] [address] Ultrasound Report Signed Patient: Pankaj Payne MR#: [id number] : 1945 Acct:[id number] Age/Sex: 78 / M ADM Date: 05/21/24 Loc: Room: Type: [facility] Attending Dr: Mick Branch MD Ordering Provider: [...] Claros Jr., D.O.05/21/2024 10:23 AM Dictation Location: [place] [address] Tech: Lizzy Llanes Transcribed By: [facility] 05/21/24 1023 Dictated By: Kartik Claros Jr, DO 05/21/24 1022 Signed By: 05/21/24 1023NormUF Health North Physician GroupAFP Tumor Marker, Serumon 49-08-2244OAA Tumor Marker, Serum2.5 ng/mLNormal0.0-8.4The [facility] Physician GroupComment on above:Result Comment: [facility] Electrochemiluminescence Immunoassay (ECLIA) Values obtained with different assay methods or kits cannot be used interchangeably. Results cannot be interpreted as absolute evidence of the presence or absence of malignant disease. This test is not interpretable in females. Performed at: [address] [id number] [employer] Operator: Charlie Klein PhD, Phone: [phone] PERFORMED BY: [facility] [address] [place] [address] PATHOLOGIST ABORIGINAL EDUCATION TEACHER LUICUS IRELAND M.D.Performed By: #### LIPID, PSAS, TSH3 wRFLX, CMP, PT #### [place] [id number] [place] #### AFPTM #### [facility] ,Alanine aminotransferase [Enzymatic activity/volume] in Serum or PlasmaOrdered By: Mick Branch on 68-41-8339PBM [Catalytic activity/Vol]Alanine aminotransferase [Enzymatic activity/volume] in Serum or Plasma7-52[facility] Medical CenterAlbumin [Mass/volume] in Serum or Plasma by Bromocresol green (BCG) dye binding methoOrdered By: Mick Branch on 46-26-8563Joftemi BCG dye [Mass/Vol]Albumin [Mass/volume] in Serum or Plasma by Bromocresol green (BCG) dye binding metho3.5-5.7FDiley Ridge Medical CenterAlkaline phosphatase [Enzymatic activity/volume] in Serum or PlasmaOrdered By: Mick Branch on 05-57-2374RMT [Catalytic activity/Vol]Alkaline phosphatase [Enzymatic activity/volume] in Serum or QcrpuvAysp07-080JdkmaghplKettering Health – [facility] Center Aspartate aminotransferase [Enzymatic activity/volume] in Serum or PlasmaOrdered By: Mick Branch on 82-92-0585IMA [Catalytic activity/Vol]Aspartate aminotransferase [Enzymatic activity/volume] in Serum or WffaobIahd82-77 [facility] Medical CenterBilirubin.total [Mass/volume] in Serum or PlasmaOrdered By: Mick Branch on 72-47-5588Vizccgatg [Mass/Vol]Bilirubin.total [Mass/volume] in Serum or Plasma0.3-1.0[facility] Medical CenterCalcium [Mass/volume] in Serum or PlasmaOrdered By: Mick Branch on 04-37-1643Wfdgptd [Mass/Vol]Calcium [Mass/volume] in Serum or Plasma8.6-10.3FDiley Ridge Medical CenterCarbon dioxide, total [Moles/volume] in Serum or PlasmaOrdered By: Mick Branch on 56-09-7358JB1 [Moles/Vol]Carbon dioxide, total [Moles/volume] in Serum or LmedmtCxmj33.0-31.0[facility] CenterChloride [Moles/volume] in Serum or PlasmaOrdered By: Mick Branch on 76-78-0167Iqtscops [Moles/Vol]Chloride [Moles/volume] in Serum or YcojrsEbdm22-072UehjropyiKettering Health – Soin Medical CenterCholesterol [Mass/volume] in Serum or PlasmaOrdered By: Mick Branch on 55-81-7088Ooklqfcwmrw [Mass/Vol]Cholesterol [Mass/volume] in Serum or Cuiclm564-956HlwcpsucoKettering Health – Soin Medical CenterComment on above:Chol less than 200 mg/dl low riskChol 201-239 mg/dl borderline riskChol 240 mg/dl and greater high riskCholesterol in HDL [Mass/volume] in Serum or PlasmaOrdered By: Mick Branch on 57-82-3977Vkzntgjuhob in HDL [Mass/Vol]Serum or plasma high density lipoprotein (HDL) cholesterol vnnhxyledwu64-79WwcdiaxknKettering Health – Soin Medical CenterComment on above:HDL CHOL ATP-III CLASSIFICATION Cardiovascular RiskHDL > or equal to 60 mg/dL LOWHDL < 40 mg/dL HIGHCholesterol in LDL Calc [Mass/Vol] Ordered By: Mick Branch on 45-53-5249Nxdresifqoa in LDL [Mass/Vol]Cholesterol in LDL [Mass/volume] in Serum or Plasma by calculation0-100[facility] Medical CenterComment on above:LDL ATP III CLASSIFICATIONLDL less than 100 mg/dL OptimalLDL 100-129 mg/dL Near or above fbkcmomSED347-264 mg/dL Borderline highLDL 160-189 mg/dL HighLDL greater than 189 mg/dL Very highCholesterol in VLDL Calc [Mass/Vol]Ordered By: Mick Branch on 63-62-1997Sssqfqfkcrw in VLDL [Mass/Vol]Cholesterol in VLDL [Mass/volume] in Serum or Plasma by calculation [facility] CenterComprehensive Metabolic Panelon 04-30-2024 Albumin [Mass/Vol]3.5 g/dLNormal3.5-5.7The [facility] Physician GroupComment on above:Performed By: #### LIPID, PSAS, TSH3 wRFLX, CMP, PT #### [facility] [address] [place] [address] #### AFPTM #### [facility] ,Albumin/Globulin [Mass ratio]1.3 {ratio}NormalThe [facility] Comment on above:Performed By: #### LIPID, PSAS, TSH3 wRFLX, CMP, PT #### [facility] [address] [place] [address] [place] #### AFPTM #### [facility] ,ALP [Catalytic activity/Vol]122 U/YAhum39-773Dja [facility] Comment on above:Performed By: #### LIPID, PSAS, TSH3 wRFLX, CMP, PT #### [facility] [address] [place] [address] #### AFPTM #### [facility] ,ALT [Catalytic activity/Vol]40 U/LNormal7-52The [facility] Comment on above:Performed By: #### LIPID, PSAS, TSH3 wRFLX, CMP, PT #### [facility] [address] [place] [address] [place] #### AFPTM #### [facility] ,Anion gap [Moles/Vol]4.9 mmol/LLow6.0-15.0The [facility] Physician GroupComment on above:Performed By: #### LIPID, PSAS, TSH3 wRFLX, CMP, PT #### [facility] [address] [place] [address] [place] #### AFPTM #### [facility] ,AST [Catalytic activity/Vol]46 U/TVmat19-84Wpj [facility] Physician GroupComment on above:Performed By: #### LIPID, PSAS, TSH3 wRFLX, CMP, PT #### [facility] [address] [place] [address] [place] #### AFPTM #### [facility] ,Bilirubin [Mass/Vol]0.7 mg/dLNormal0.3-1.0The [facility] Physician GroupComment on above:Performed By: #### LIPID, PSAS, TSH3 wRFLX, CMP, PT #### [place] [address] [place] #### AFPTM #### [facility] ,Calcium [Mass/Vol]8.8 mg/dLNormal8.6-10.3The [facility] Physician GroupComment on above:Performed By: #### LIPID, PSAS, TSH3 wRFLX, CMP, PT #### [facility] [address] [place] [address] [place] #### AFPTM #### [facility] ,Chloride [Moles/Vol]109 mmol/ZYkbu75-565Ljd [facility] Physician GroupComment on above:Performed By: #### LIPID, PSAS, TSH3 wRFLX, CMP, PT #### [facility] [address] [place] [address] #### AFPTM #### [facility] ,CO2 [Moles/Vol]31.4 mmol/LHigh21.0-31.0The [facility] Physician GroupComment on above:Performed By: #### LIPID, PSAS, TSH3 wRFLX, CMP, PT #### [place] [address] [place] #### AFPTM #### [facility] ,Creatinine [Mass/Vol]0.91 mg/dLNormal0.70-1.30The [facility] Comment on above:Performed By: #### LIPID, PSAS, TSH3 wRFLX, CMP, PT #### [facility] [address] [place] [address] [place] #### AFPTM #### [facility] ,GFR/1.73 sq M.predicted MDRD (S/P/Bld) [Vol rate/Area]mL/min/{1.73_m2}NormalThe [facility] Physician GroupComment on above:Performed By: #### LIPID, PSAS, TSH3 wRFLX, CMP, PT #### [facility] [address] [place] [address] [place] #### AFPTM #### [facility] ,Globulin (S) [Mass/Vol]2.7 g/dLNormalThe [facility] Physician GroupComment on above:Performed By: #### LIPID, PSAS, TSH3 wRFLX, CMP, PT #### [facility] [address] [place] [address] [place] #### AFPTM #### [facility] ,Glucose [Mass/Vol]82 mg/wMNdfanf95-684Euf [facility] Physician GroupComment on above:Result Comment: Random Glucose Reference Range is dependent on time and content of last meal. Glucose of more than 200 mg/dL in a nonstressed, ambulatory subject supports the diagnosis of Diabetes Mellitus. ADA recommended reference rangePerformed By: #### LIPID, PSAS, TSH3 wRFLX, CMP, PT #### [place] [address] [place] #### AFPTM #### [facility] ,Potassium [Moles/Vol]4.3 mmol/LNormal3.5-5.1The [facility] Comment on above:Performed By: #### LIPID, PSAS, TSH3 wRFLX, CMP, PT #### [facility] [address] [place] [address] [place] #### AFPTM #### [facility] ,Protein [Mass/Vol]6.2 g/dLLow6.4-8.9The [facility] Physician GroupComment on above:Performed By: #### LIPID, PSAS, TSH3 wRFLX, CMP, PT #### [place] [address] [place] #### AFPTM #### [facility] ,Sodium [Moles/Vol]141 mmol/JRxnjnq404-772Nyn [facility] Physician GroupComment on above:Performed By: #### LIPID, PSAS, TSH3 wRFLX, CMP, PT #### [facility] [address] [place] [address] [place] #### AFPTM #### [facility] ,Urea nitrogen [Mass/Vol]18 mg/dLNormal7-e [facility] Physician GroupComment on above:Performed By: #### LIPID, PSAS, TSH3 wRFLX, CMP, PT #### [facility] [address] [place] [address] [place] #### AFPTM #### [facility] ,Creatinine [Mass/volume] in Serum or PlasmaOrdered By: Mick Branch on 86-57-1586Raklauoflo [Mass/Vol]Creatinine [Mass/volume] in Serum or Plasma 0.70-1.30[facility] CenterGlobulin Calc (S) [Mass/Vol]Ordered By: Mick Branch on 85-13-6631Qmpfmhkq (S) [Mass/Vol]Serum globulin measurement by calculation (mass/volume)[facility] CenterGlucose [Mass/volume] in Serum or PlasmaOrdered By: Mick Branch on 96-18-7900Nvxwcus [Mass/Vol]Glucose [Mass/volume] in Serum or Ldjkfj58-087GbcyqywsmKettering Health – Soin Medical CenterComment on above:ADA recommended reference rangeRandom Glucose Reference Range is dependent on time and content of last meal. Glucose of more than 200 mg/dL in a nonstressed, ambulatory subject supports the diagnosisof Diabetes Mellitus.INR in Platelet poor plasma by Coagulation assayOrdered By: Mick Branch on 01-82-0430EAG Coag (PPP) [Relative time]INR in Platelet poor plasma by Coagulation assayKettering Health – Soin Medical CenterComment on above:INR Therapeutic Range A) Pre- and Peroperative OAT started two weeks before surgery. NOT HIP SURGERY: 1.5 - 2.5 HIP SURGERY: 2 - 3B) Primary and secondary prevention of venous THROMBOSIS: 2 - 3C) Active venous thrombosis, pulmonary embolismand prevention of recurrent venous thrombosis: 2 - 3D) Prevention of arterial thromboembolismincluding patients with mechanical heart valves: 3 - 4.5Lipid Panelon 91-77-7118Jxluvyeydiv [Mass/Vol]142 mg/fIQhlazg547-168Glc [facility] Physician GroupComment on above:Result Comment: Chol less than 200 mg/dl low risk Chol 201-239 mg/dl borderline risk Chol 240 mg/dl and greater high riskPerformed By: #### LIPID, PSAS, TSH3 wRFLX, CMP, PT #### [facility] [address] [place] [address] [place] #### AFPTM #### [facility] ,Cholesterol in HDL [Mass/Vol]42 mg/dZCoyffa73-27Pst [facility] Comment on above:Result Comment: HDL CHOL ATP-III CLASSIFICATION Cardiovascular Risk HDL > or equal to 60 mg/dL LOW HDL < 40 mg/dL HIGHPerformed By: #### LIPID, PSAS, TSH3 wRFLX, CMP, PT #### [facility] [address] [place] [address] #### AFPTM #### [facility] ,Cholesterol.total/Cholesterol in HDL [Mass ratio]3.4 {ratio}Normal<5.0The [facility] Physician GroupComment on above:Performed By: #### LIPID, PSAS, TSH3 wRFLX, CMP, PT #### [facility] [address] [place] [address] [place] #### AFPTM #### [facility] ,LDL Cholesterol,Pechjedgmz92 mg/dLNormal0-100The [facility] Comment on above:Result Comment: LDL ATP III CLASSIFICATION LDL less than 100 mg/dL Optimal LDL 100-129 mg/dL Near or above optimal LDL 130-159 mg/dL Borderline high LDL 160-189 mg/dL High LDL greater than 189 mg/dL Very highPerformed By: #### LIPID, PSAS, TSH3 wRFLX, CMP, PT #### [facility] [address] [place] [address] [place] #### AFPTM #### [facility] ,Triglyceride w/Gbnmpp133 mg/dLHigh0-149The [facility] Physician GroupComment on above:Result Comment: TRIG ATP III CLASSIFICATION TRIG less than 150 mg/dL Normal TRIG 150-199 mg/dL Borderline high TRIG 200-500 mg/dL High TRIG greater than 500 mg/dL Very high Standard traceable to the Center for Disease Conrtrol and Prevention (CDC) test method.Performed By: #### LIPID, PSAS, TSH3 wRFLX, CMP, PT #### [address] #### AFPTM #### [facility] ,VLDL PTJWSASQVQM50 mg/dLNormSumma Healthe [facility] Physician GroupComment on above: Performed By: #### LIPID, PSAS, TSH3 wRFLX, CMP, PT #### [address] #### AFPTM #### [facility] ,No Panel InformationOrdered By: Mick Branch on 10-17-7162Lnxbtlbbb GFR (CKD-EPI)> 60.0 mL/MinKettering Health – Soin Medical CenterPharmacy Creatinine Clearance (ChemN/[facility] Medical CenterPSA Screen (Yearly Only)on 95-38-9638NNW Screen (Yearly Only)0.600 ng/mLNormal0.000-4.000The [facility] Physician GroupComment on above:Result Comment: Serial tumor marker results determined by assays using different manufacturers or methods may not be comparable. [facility] deburrer and method: DIANE UNICEL DXI, CHEMILUMINESCENT IMMUNOASSAY. PERFORMED BY: [place] [address] PATHOLOGIST ABORIGINAL EDUCATION TEACHER LUCIUS IRELAND M.D.Performed By: #### LIPID, PSAS, TSH3 wRFLX, CMP, PT #### [place] [address] [place] #### AFPTM #### [facility] ,Potassium [Moles/volume] in Serum or PlasmaOrdered By: Mcik Branch on 97-93-2715Nrkeujtdg [Moles/Vol]Potassium [Moles/volume] in Serum or Plasma 3.5-5.1FDiley Ridge Medical CenterProstate specific Ag [Mass/volume] in Serum or PlasmaOrdered By: Mick Branch on 41-48-0781Zxrdcyjc specific Ag [Mass/Vol]Prostate specific Ag [Mass/volume] in Serum or Plasma0.000-4.000 [facility] CenterComment on above:Serial tumor marker results determined by assays using different manufacturers or methods may not be comparable.[facility] deburrer and method:DIANE UNICEL DXI, CHEMILUMINESCENT IMMUNOASSAY.Protein [Mass/volume] in Serum or PlasmaOrdered By: Mick Branch on 94-60-4949Yfcpfjt [Mass/Vol]Protein [Mass/volume] in Serum or PlasmaLow6.4-8.9[facility] CenterProthrombin Time INRon 90-38-9497UPF Coag (PPP) [Relative time]1.2 {INR}NormalThe [facility] Physician GroupComment on above:Result Comment: INR Therapeutic [...] heart valves: 3 - 4.5 PERFORMED BY: [place] [address] PATHOLOGIST ABORIGINAL EDUCATION TEACHER LUCIUS IRELAND M.D.Performed By: #### LIPID, PSAS, TSH3 wRFLX, CMP, PT #### [facility] [address] [place] [address] #### AFPTM #### [facility] ,PT Coag (PPP) [Time]13.8 sHigh9.0-12.9The [facility] Physician GroupComment on above:Result Comment: A hematocrit value greater than 55% may lead to inaccurate results in coagulation testing. Patients having hematocrit values >55% require a special collection tube for coagulation studies. Please contact the laboratory at [phone] for redraw instructions.Performed By: #### LIPID, PSAS, TSH3 wRFLX, CMP, PT #### [place] [id number] [facility] #### AFPTM #### [facility] ,Prothrombin time (PT)Ordered By: Mick Branch on 61-79-7526VO Coag (PPP) [Time]Prothrombin time (PT)High9.0-12.9[facility] Medical CenterComment on above:A hematocrit value greater than 55% may lead to inaccurate results in coagulation testing. Patientshaving hematocrit values >55% require a special collection tube for coagulation studies. Please contact the laboratory at [phone] for redraw instructions.Serum or plasma albumin/globulin mass ratio Ordered By: Mick Branch on 31-16-9024Zcngnja/Globulin [Mass ratio]Serum or plasma albumin/globulin mass ratioCincinnati Children's Hospital Medical Centererum or plasma wvcid-5-xztdcwdervw tumor marker measurement (mass/volume)Ordered By: Mick Branch on 51-80-7921NIX.tumor marker [Mass/Vol]Serum or plasma bvoqn-5-ydgoqowbekq tumor marker measurement (mass/volume)0.0-8.4FDiley Ridge Medical CenterComment on above:[facility] Electrochemiluminescence Immunoassay(ECLIA)Values obtained with different assay methods or kits cannotbe used interchangeably. Results cannot be interpreted asabsolute evidence of the presence or absence of malignantdisease.This test is not interpretable in females.Performed at: [facility] [id number] Director: Charlie Klein PhD, Phone: [phone] or plasma anion gap determinationOrdered By: Mick Branch on 15-54-6279Bqfgp gap [Moles/Vol]Serum or plasma anion gap determinationLow 6.0-15.0[facility] Centererum or plasma total cholesterol/high density lipoprotein (HDL) cholesterol mass ratOrdered By: Mick Branch on 10-80-2473Vhejkjelcac.total/Cholesterol in HDL [Mass ratio]Serum or plasma total cholesterol/high density lipoprotein (HDL) cholesterol mass rat<5.0[facility] Medical Centerodium [Moles/volume] in Serum or PlasmaOrdered By: Mick Branch on 57-70-2120Eupath [Moles/Vol]Sodium [Moles/volume] in Serum or Oeohix642-099MqgnqxekxKettering Health – Soin Medical CenterThyroid Stim Hormone w/Rflxon 43-47-9181Abmhhax Stim Hormone w/Rflx3.07 u[iU]/mLNormal0.45-5.33The [facility] Physician GroupComment on above:Result Comment: PERFORMED BY: [facility] [address] [place] [address] PATHOLOGIST ABORIGINAL EDUCATION TEACHER LUCIUS IRELAND M.D.Performed By: #### LIPID, PSAS, TSH3 wRFLX, CMP, PT #### [address] #### AFPTM #### [facility] ,Thyrotropin [Units/volume] in Serum or PlasmaOrdered By: Mick Branch on 91-55-4763USY QnThyrotropin [Units/volume] in Serum or Plasma0.45-5.33[facility] Medical CenterTriglyceride [Mass/volume] in Serum or PlasmaOrdered By: Mick Branch on 63-66-6681Hkvlabsvvyud [Mass/Vol]Triglyceride [Mass/volume] in Serum or PlasmaHigh0-149[facility] CenterComment on above:TRIG ATP III CLASSIFICATIONTRIG less than 150 mg/dL NormalTRIG 150-199 mg/dL Borderline highTRIG 200-500 mg/dL High TRIG greater than 500 mg/dL Very highStandard traceable to the Center for Disease Conrtrol and Prevention (CDC) test method.Urea nitrogen [Mass/volume] in Serum or PlasmaOrdered By: Mick Branch on 12-65-5251Pxal nitrogen [Mass/Vol]Urea nitrogen [Mass/volume] in Serum or Plasma7-25[facility] CenterALL CBC WITH AUTO DIFFon 71-95-3858Mqzyixcbbrp distribution width (RBC) [Ratio]13.6 %11.0 - 15.0 %[facility] HealthcareHematocrit (Bld) [Volume fraction]40 %Low42.0 - 54.0 %[facility] Healthcare Hemoglobin (Bld) [Mass/Vol]13 g/dLLow14.0 - 18.0 g/dLNOMS Healthcare Interpretation and review of laboratory resultsAbnormEncompass Health (RBC) [Entitic mass]31.6 pg25.9 - 34.0 pgParkland Health Center (RBC) [Mass/Vol]32.5 g/dL 29.9 - 35.2 g/dLPike County Memorial HospitalV (RBC) [Entitic vol]97.1 iCZcoe94.0 - 94.0 fL [facility] HealthcarePlatelet mean volume (Bld) [Entitic vol]11.1 fL9.5 - 13.5 fLSaint Luke's Health System UZC73XrvZIRISaint Luke's Health System RBC4.12LowSaint Luke's Health System WBC4.9[facility] Hospitals for ChildrenCLINISLaughlin Memorial HospitalEC [address] 54-75-9475Rwyqu bradycardia, PVC, sinus arrhythmia, anterolateral NC age-indeterminate, abnormal ECGUnCleveland Clinic Fairview Hospital Work Phone: UnCleveland Clinic Fairview Hospital Work Phone: aLL CBC WITH AUTO DIFFon 90-57-2929Skfczqlstqs distribution width (RBC) [Ratio]18.3 %High11.0 - 15.0 %[facility] HealthcareHematocrit (Bld) [Volume fraction]38.3 %Low42.0 - 54.0 %[facility] HealthcareHemoglobin (Bld) [Mass/Vol]12.2 g/dLLow14.0 - 18.0 g/dLShriners Hospitals for ChildrenInterpretation and review of laboratory resultsAbnoReading Hospital (RBC) [Entitic mass]29.5 pg25.9 - 34.0 pgPike County Memorial HospitalHC (RBC) [Mass/Vol]31.9 g/dL29.9 - 35.2 g/dLPike County Memorial HospitalV (RBC) [Entitic vol]92.5 fL80.0 - 94.0 fLShriners Hospitals for ChildrenPlatelet mean volume (Bld) [Entitic vol]11.1 fL9.5 - 13.5 fLSaint Luke's Health System OUK15Mrf [facility] RBC4.14LowSaint Luke's Health System WBC3.1LSt. Lukes Des [facility] CLINISYNCShriners Hospitals for ChildrenNo Panel InformationOrdered By: Mick Branch on 52-75-5871Mgwzxndqjmjiy Pathology TestSee commentFirelands Regional Medical CenterComment on above:See report. Scanned copy available in EMR.Alanine aminotransferase [Enzymatic activity/volume] in Serum or PlasmaOrdered By: Mick Branch on 79-98-4680NJJ [Catalytic activity/Vol]43 U/L7-52[facility] Medical CenterAlbumin [Mass/volume] in Serum or Plasma by Bromocresol green (BCG) dye binding methoOrdered By: Mick Branch on 88-11-6439Ceibtvz BCG dye [Mass/Vol]3.9 g/dL3.5-5.7FDiley Ridge Medical CenterAlkaline phosphatase [Enzymatic activity/volume] in Serum or PlasmaOrdered By: Mick Branch on 76-24-2048SUX [Catalytic activity/Vol]138 U/SPiiu42-336ClddswrnoKettering Health – Soin Medical CenterAnisocytosis LM Ql (Bld)Ordered By: Mick Branch on 15-48-7557Rbwmommxkjuz Ql (Bld)SlightKettering Health – Soin Medical CenterAspartate aminotransferase [Enzymatic activity/volume] in Serum or PlasmaOrdered By: Mick Branch on 46-55-3495WQT [Catalytic activity/Vol]49 U/HJfhd70-14QmxbpeqodKettering Health – Soin Medical CenterBand form neutrophils/100 WBC Manual cnt (Bld)Ordered By: Mick Branch on 96-93-8469Ajhd form neutrophils/100 WBC (Bld)1 %0-5FDiley Ridge Medical CenterBasophils Auto (Bld) [#/Vol]Ordered By: Mick Branch on 66-59-4383Hkutuwjul (Bld) [#/Vol]N/[facility] Basophils/100 WBC Auto (Bld)Ordered By: Mick Branch on 19-32-9027Nqdnnkdng/100 WBC (Bld)N/[facility] CenterBilirubin.total [Mass/volume] in Serum or PlasmaOrdered By: Mick Branch on 70-18-6796Gobzlerfv [Mass/Vol]0.6 mg/dL0.3-1.0[facility] CenterCalcium [Mass/volume] in Serum or PlasmaOrdered By: Mick Branch on 21-78-4527Tfwwawp [Mass/Vol]8.8 mg/dL8.6-10.3 [facility] Medical CenterCarbon dioxide, total [Moles/volume] in Serum or PlasmaOrdered By: Mick Branch on 80-23-9292DF2 [Moles/Vol]27.5 mmol/L 21.0-31.0[facility] Medical CenterChloride [Moles/volume] in Serum or PlasmaOrdered By: Mick Branch on 89-87-6239Brfkwmrf [Moles/Vol]111 mmol/LHigh 98-107[facility] CenterCreatinine [Mass/volume] in Serum or PlasmaOrdered By: Mick Branch on 17-25-5840Afggvpyuad [Mass/Vol]0.94 mg/dL 0.70-1.30[facility] Medical CenterEosinophils Auto (Bld) [#/Vol]Ordered By: Mick Branch on 00-83-6283Fnoiwrqpbrm (Bld) [#/Vol]N/[facility] CenterEosinophils/100 WBC Auto (Bld)Ordered By: Mick Branch on 41-85-7373Rgdgasgphqn/100 WBC (Bld)N/[facility] Eosinophils/100 WBC Manual cnt (Bld)Ordered By: Mick Branch on 09-17-2023 Eosinophils/100 WBC (Bld)4 %High1-3FDiley Ridge Medical CenterErythrocyte distribution width Auto (RBC) [Ratio]Ordered By: Mick Branch on 09-17-2023 Erythrocyte distribution width (RBC) [Ratio]17.4 %High12.0-14.8[facility] Medical CenterFerritin [Mass/volume] in Serum or PlasmaOrdered By: Mick Branch on 56-72-0710Vakgvgbd [Mass/Vol]23.4 ng/mLLow23.9-336.2FDiley Ridge Medical CenterGlobulin Calc (S) [Mass/Vol]Ordered By: Mick Branch on 39-48-7612Vhqsduks (S) [Mass/Vol]2.7 g/dLKettering Health – Soin Medical Center Glucose [Mass/volume] in Serum or PlasmaOrdered By: Mick Branch on 09-17-2023 Glucose [Mass/Vol]78 mg/cH27-214XkqvgsmkfKettering Health – Soin Medical CenterComment on above:ADA recommended reference rangeRandom Glucose Reference Range is dependent on time and content of last meal. Glucose of more than 200 mg/dL in a nonstressed, ambulatory subject supports the diagnosisof Diabetes Mellitus. Hematocrit Auto (Bld) [Volume fraction]Ordered By: Mick Branch on 09-17-2023 Hematocrit (Bld) [Volume fraction]37.4 %Low38.8-50.0[facility] CenterHemoglobin [Mass/volume] in BloodOrdered By: Mick Branch on 09-17-2023 Hemoglobin (Bld) [Mass/Vol]12.1 g/dLLow13.0-17.0[facility] Medical CenterINR in Platelet poor plasma by Coagulation assayOrdered By: Mick Branch on 42-39-6961MJD Coag (PPP) [Relative time]1.1 {INR}[facility] CenterComment on above:INR Therapeutic Range A) [...] Serum or PlasmaOrdered By: Mick Branch on 30-65-1320Dweg [Mass/Vol]52 ug/qS26-490VujvyhzerKettering Health – Soin Medical CenterIron binding capacity [Mass/volume] in Serum or PlasmaOrdered By: Mick Branch on 18-19-5278Ugkl binding capacity [Mass/Vol]496 ug/eRKyaz144-365HqqpunsyvKettering Health – Soin Medical CenterIron saturation [Mass Fraction] in Serum or Plasma Ordered By: Mick Branch on 15-78-8506Bigw saturation [Mass fraction]10.5 %Low 20-50[facility] Medical CenterLeukocytes [#/volume] corrected for nucleated erythrocytes in Blood by Automated counOrdered By: Mick Branch on 38-40-8227QTI corrected for nucl RBC Auto (Bld) [#/Vol]3.2 10*3/uLLow4.1-10.5 [facility] Medical CenterLymphocytes Auto (Bld) [#/Vol]Ordered By: Mick Branch on 73-80-7396Klnjfrslqfj (Bld) [#/Vol]N/[facility] CenterLymphocytes/100 WBC Auto (Bld)Ordered By: Mick Branch on 88-73-7685Ldpnjhtrmqg/100 WBC (Bld)N/[facility] Lymphocytes/100 WBC Manual cnt (Bld)Ordered By: Mick Branch on 09-17-2023 Lymphocytes/100 WBC (Bld)25 %18-42[facility] Medical CenterMCH Auto (RBC) [Entitic mass]Ordered By: Mick Branch on 19-92-9940KZY (RBC) [Entitic mass]27.4 pgLow27.5-35.2FDiley Ridge Medical CenterMCHC Auto (RBC) [Mass/Vol]Ordered By: Mick Branch on 63-55-9890FQOW (RBC) [Mass/Vol]32.2 g/dL Low32.5-35.6FDiley Ridge Medical CenterMCV Auto (RBC) [Entitic vol]Ordered By: Mick Branch on 98-23-8940UUU (RBC) [Entitic vol]85.0 fL83.5-101[facility] CenterMacrocytes LM Ql (Bld)Ordered By: Mick Branch on 33-24-6880Udpvvyafgs Ql (Bld)SlightKettering Health – Soin Medical CenterMicrocytes LM Ql (Bld)Ordered By: Mick Branch on 89-83-5552Dkzzjpoeyt Ql (Bld)Slight [facility] CenterMonocytes Auto (Bld) [#/Vol]Ordered By: Mick Branch on 41-32-5139Zvebuqasn (Bld) [#/Vol]N/[facility] Monocytes/100 WBC Auto (Bld)Ordered By: Mick Branch on 10-86-3424Uewtlacxr/100 WBC (Bld)N/[facility] CenterMonocytes/100 WBC Manual cnt (Bld) Ordered By: Mick Branch on 21-54-2819Abdigwrhg/100 WBC (Bld)8 %2-11[facility] CenterNeutrophils Auto (Bld) [#/Vol]Ordered By: Mick Branch on 57-51-7240Zjygvmgjdhh (Bld) [#/Vol]N/[facility] Neutrophils/100 WBC Auto (Bld)Ordered By: Mick Branch on 09-17-2023 Neutrophils/100 WBC (Bld)N/[facility] CenterNo Panel InformationOrdered By: Mick Branch on 72-40-8982Vvgmtnjiu GFR (CKD-EPI)> 60.0 mL/MinKettering Health – Soin Medical CenterPharmacy Creatinine Clearance (ChemN/A [facility] CenterNucleated erythrocytes [Presence] in Blood by Automated countOrdered By: Mick Branch on 97-99-4033Ukfhtnflm RBC Auto Ql (Bld)[facility] ShawOvalocyte detectionOrdered By: Mick Branch on 45-49-7034Chfxgnxvvc LM Ql (Bld)SlightKettering Health – [facility] Center Platelet adequacy [Presence] in Blood by Light microscopyOrdered By: Mick Branch on 34-34-5025Xbvmfscue LM Ql (Bld)DecreasedNormLima Memorial HospitalPlatelet mean volume Auto (Bld) [Entitic vol]Ordered By: Mick Branch on 88-43-0336Vmsryicb mean volume (Bld) [Entitic vol]8.9 fL6.6-10.1 [facility] Medical CenterPlatelet morphology finding [Identifier] in BloodOrdered By: Mick Branch on 55-39-0087Cgtcdjnj morphology finding Nom (Bld)NormalNormLima Memorial HospitalPlatelets Auto (Bld) [#/Vol] Ordered By: Mick Branch on 90-33-6786Wsbqoshrg (Bld) [#/Vol]112 10*3/uLLow 150-450[facility] CenterPoikilocytosis [Presence] in Blood by Light microscopyOrdered By: Mick Branch on 12-95-6515Pppxuumqrjlxsg LM Ql (Bld)SlightKettering Health – Soin Medical CenterPotassium [Moles/volume] in Serum or PlasmaOrdered By: Mick Branch on 20-32-8578Lmfaxleil [Moles/Vol]4.3 mmol/L 3.5-5.1FDiley Ridge Medical CenterProtein [Mass/volume] in Serum or Plasma Ordered By: Mick Branch on 29-00-2049Xsbqsid [Mass/Vol]6.6 g/dL6.4-8.9 [facility] CenterProthrombin time (PT)Ordered By: Mick Branch on 99-09-2721SI Coag (PPP) [Time]13.1 sHigh9.0-12.9[facility] CenterComment on above:A hematocrit value greater than 55% may lead to inaccurate results in coagulation testing. Patientshaving hematocrit values >55% require a special collection tube for coagulation studies. Please contact the laboratory at [phone] for redraw instructions.RBC Auto (Bld) [#/Vol]Ordered By: Mick Branch on 24-85-4076WQC (Bld) [#/Vol]4.40 10*6/uL3.90-5.60[facility] CenterRBC morphologyOrdered By: Mick Branch on 86-99-0826FNP morphology finding Nom (Bld)N/AFPremier Health Miami Valley Hospital Northegmented neutrophils/100 WBC Manual cnt (Bld)Ordered By: Mick Branch on 09-17-2023 Segmented neutrophils/100 WBC (Bld)63 %50-70[facility] Serum or plasma albumin/globulin mass ratioOrdered By: Mick Branch on 38-80-3513Ksggwef/Globulin [Mass ratio]1.4 {ratio}[facility] Centererum or plasma fsghz-2-fovsuetybyf tumor marker measurement (mass/volume) Ordered By: Mick Branch on 98-81-9207TCX.tumor marker [Mass/Vol]3.0 ng/mL 0.0-8.4FDiley Ridge Medical CenterComment on above:[facility] Electrochemiluminescence Immunoassay(ECLIA)Values obtained with different assay methods or kits cannotbe used interchangeably. Results cannot be interpreted asabsolute evidence of the presence or absence of malignantdisease.This test is not interpretable in females.Performed at: - [facility] [id number] Director: Charlie Klein PhD, Phone: [phone] or plasma anion gap determinationOrdered By: Mick Branch on 62-36-1219Efvxf gap [Moles/Vol]8.8 mmol/L6.0-15.0[facility] Centerodium [Moles/volume] in Serum or PlasmaOrdered By: Mick Branch on 89-36-5519Upornz [Moles/Vol]143 mmol/J867-878OqkfrwjozKettering Health – Soin Medical Center Transferrin [Mass/volume] in Serum or PlasmaOrdered By: Mick Branch on 09-14-3997Nebrvvhkehm [Mass/Vol]354 mg/tI814-865TcjcrwbffKettering Health – Soin Medical CenterUrea nitrogen [Mass/volume] in Serum or PlasmaOrdered By: Mick Branch on 18-01-3739Kssw nitrogen [Mass/Vol]20 mg/dL7-25[facility] WBC Auto (Bld) [#/Vol]Ordered By: Mick Branch on 09-72-8703ZDJ (Bld) [#/Vol] 3.4 10*3/uLLow4.1-10.5FDiley Ridge Medical CenterECG [address] 06-20-2023 Sinus rhythm, rightward axis, bigeminal PVCs, anteroseptal infarction pattern age indeterminant, abnormal ECGCPACSThe [facility] System Work Phone: albumin [Mass/volume] in Serum or PlasmaOrdered By: Zoila Castorena on 0377Mwksqid [Mass/Vol]3.0 g/dL2.9-4.4FDiley Ridge Medical CenterFolate [Mass/volume] in Serum or PlasmaOrdered By: Zoila Castorena on 57-56-0501Mrqknk [Mass/Vol]40.0 ng/mL>5.9[facility] Comment on above:Folate reference range: >5.9 ng/mlThe WHO technical consultation on folate and vitamin p88oofnrrnpyujd has determined that folate concentrations lessthan 4 ng/ml are considered deficient.Haptoglobin [Mass/volume] in Serum or PlasmaOrdered By: Zoila Castorena on 42-83-2013Vrvuugzxuve [Mass/Vol]58 mg/gF16-165NcqtmhdqfKettering Health – Soin Medical CenterLactate dehydrogenase [Enzymatic activity/volume] in Serum or Plasma by Lactate to pyOrdered By: Zoila Castorena on 30-51-3618HVV Lactate to pyruvate reaction [Catalytic activity/Vol]221 U/J860-572CrvqovgloKettering Health – Soin Medical CenterNo Panel InformationOrdered By: Zoila Castorena on 88-68-3453Wshbbiz Electrophoresis M-SpikeNot observed g/dLNot Observed [facility] CenterProtein Electrophoresis NoteSee comment. [facility] CenterComment on above:Protein electrophoresis scan will follow via computer,mail, or court bailiff or sheriff delivery.Performed at: [facility] [address] [id number] Director: Charlie Klein PhD, Phone: [phone] [Mass/volume] in Serum or PlasmaOrdered By: Zoila Castorena on 59-12-8907Oluroaq [Mass/Vol]6.0 g/dL6.0-8.5FDiley Ridge Medical Center Serum globulin measurement (mass/volume)Ordered By: Zoila Castorena on 08-08-2022 Globulin (S) [Mass/Vol]3.0 g/dL2.2-3.9[facility] Centererum or plasma albumin/globulin mass ratioOrdered By: Zoila Castorena on 08-08-2022 Albumin/Globulin [Mass ratio]1.0 {ratio}0.7-1.7FDiley Ridge Medical Center Serum or plasma alpha 1 globulin measurement by electrophoresis (mass/volume) Ordered By: Zoila Castorena on 44-85-9236Abbrd 1 globulin Elph [Mass/Vol]0.2 g/dL 0.0-0.4FPremier Health Miami Valley Hospital Northerum or plasma alpha 2 globulin measurement by electrophoresis (mass/volume)Ordered By: Zoila Castorena on 08-08-2022 Alpha 2 globulin Elph [Mass/Vol]0.7 g/dL0.4-1.0[facility] Serum or plasma beta globulin measurement by electrophoresis (mass/volume) Ordered By: Zoila Castorena on 53-16-6954Arqo globulin Elph [Mass/Vol]1.2 g/dL0.7-1.3 [facility] Centererum or plasma gamma globulin measurement by electrophoresis (mass/volume)Ordered By: Zoila Castorena on 56-32-2960Civlm globulin Elph [Mass/Vol]1.0 g/dL0.4-1.8[facility] Medical CenterVitamin B12 ser/plasOrdered By: Zoila Castorena on 96-28-4065Jkdvfgtev (Vitamin B12) [Mass/Vol]481 pg/pT092-489DmmptvfqaKettering Health – Soin Medical CenterECHOCARDIO M/2D COMPLETEon 52-77-4398MXNNZFGFWM M/2D COMPLETEPatient: PANKAJ PAYNE Exam Date: 11/08/2021 : 1945 Gender:M Ordering : DR KARL MENON M.D. Admission #: [id number] Family : DR FRANTZ CONLEY M.D. Order #: [id number] CLICK HERE TO VIEW EXAM ECHOCARDIOGRAM REPORT [...] by: Karl Menon M.D. on 11/08/2021 at 16:55[facility] CenterCreatinine and Glomerular filtration rate.predicted panel (S/P/Bld) Ordered By: Frantz Conley on 10-82-0401Mxiivoymzm [Mass/Vol]1.11 mg/dL0.64-1.27 [facility] CenterEstimated glomerular filtration rate (GFR) non- AmericanOrdered By: Frantz Conley on 38-40-5998OKD/1.73 sq M.predicted among non-blacks MDRD (S/P/Bld) [Vol rate/Area]> 60 mL/MinKettering Health – Soin Medical CenterNo Panel InformationOrdered By: Frantz Conley on 10-10-2021 Estimated GFR ()> 60 mL/MinKettering Health – Soin Medical Center Comment on above:GFR estimated reference range: According to KDOQI guidelines, <60 ml/min/1.73m2 is sufficient todiagnose a patient with chronic kidney disease.Pharmacy Creatinine Clearance (ChemN/[facility] Serum or plasma urea nitrogen measurement (mass/volume)Ordered By: Frantz Conley on 44-08-1399Jvub nitrogen [Mass/Vol]16 mg/dL9-[facility] CenterCOVID-19 Positive/NegativeOrdered By: Mick Branch on 09-15-2021 SARS-CoV-2 (COVID-19) N gene GÓMEZ+probe Ql (Resp)NegativeNegativeKettering Health – Soin Medical CenterComment on above:Testing for SARS-CoV-2 by RT-PCR This test was developed and its performance characteristics determined by [employer] ([employer] and validated at the [facility]. This test has not been [...] or revoked sooner.Basic Metab w/rfx MGon 08-17-2021(cont.)Normal [facility] CenterComment on above:Result Comment: Average GFR for 70 or more years old: 75 mL/min/1.73sq m Chronic Kidney Disease: <60 mL/min/1.73sq m Kidney failure: <15 mL/min/1.73sq m eGFR calculated using average adult body mass. Additional eGFR calculator available at: http://www.globa.ly.SunFunder/multiple_crcl_2012.htmPerformed By: #### CDP, BMPX #### [facility] [address] [place] [address] Grain Elevator Operator: Levi Ray gap [Moles/Vol]9 mmol/LNormal9-17[facility] CenterComment on above:Performed By: #### CDP, BMPX #### [facility] [address] [place] [address] Grain Elevator Operator: Tony Yanez MDCalcium [Mass/Vol]9.0 mg/dLNormal8.6-10.4[facility] CenterComment on above:Performed By: #### CDP, BMPX #### [facility] [address] [place] [address] Grain Elevator Operator: Tony Yanez MDChloride [Moles/Vol]107 mmol/FJyonhe06-936ZgmlmOhiohealth Southeastern Medical CenterComment on above:Performed By: #### CDP, BMPX #### [facility] [address] [place] [address] Grain Elevator Operator: Tony Yanez MDCO2 [Moles/Vol]23 mmol/IRamahq34-73XsmgbOhiohealth Southeastern Medical CenterComment on above:Performed By: #### CDP, BMPX #### [facility] [address] [place] [address] Grain Elevator Operator: Tony Yanez MDCreatinine [Mass/Vol]0.83 mg/dLNormal0.70-1.20 [facility] CenterComment on above:Performed By: #### CDP, BMPX #### [facility] [address] [place] [address] Grain Elevator Operator: YAQUELIN Ray, Amer>60Normal>60[facility] CenterComment on above:Performed By: #### CDP, BMPX #### [facility] [address] [place] [address] Grain Elevator Operator: YAQUELIN Ray,non Amer>60Normal>60[facility] CenterComment on above:Performed By: #### CDP, BMPX #### [facility] [address] [place] [address] Grain Elevator Operator: Tony Yanez MDGlucose [Mass/Vol]91 mg/fRRfhywu95-67JkebaFresno Heart & Surgical HospitalComment on above:Performed By: #### CDP, BMPX #### [facility] [address] [place] [address] Grain Elevator Operator: ALEKS Rayotassium [Moles/Vol]4.3 mmol/LNormal3.7-5.3 [facility] CenterComment on above:Performed By: #### EMILY, BMPX #### [facility] [address] [place] [address] Grain Elevator Operator: TRACEY Rayodium [Moles/Vol]139 mmol/KQkixja654-886XndgdOhiohealth Southeastern Medical CenterComment on above:Performed By: #### EMILY, BMPX #### [facility] [address] [place] [address] Grain Elevator Operator: Tony Yanez MDUrea nitrogen [Mass/Vol]17 mg/dLNormal8-23[facility] CenterComment on above:Performed By: #### EMILY, BMPX #### [facility] [address] [place] [address] Grain Elevator Operator: Tony Yanez MDBaephraim mcdowell regional [facility] Metabolic Panel w/ Reflex to MGon 85-20-0564Dkvqz gap [Moles/Vol]9 mmol/L9 - 17 mmol/LBON SECOURS [facility] Calcium [Mass/Vol]9.0 mg/dL8.6 - 10.4 mg/dLBON SECOURS MERCY HEALTHChloride [Moles/Vol]107 mmol/L98 - 107 mmol/LBON SECOURS MERCY HEALTHCO2 [Moles/Vol]23 mmol/L20 - 31 mmol/LBON SECOURS MERCY HEALTHCreatinine [Mass/Vol]0.83 mg/dL0.70 - 1.20 mg/dLBON SECOURS MERCY HEALTHGFR >60>60 mL/minBON SECOURS MERCY HEALTHGFR Non->60>60 mL/minBON SECTriton GFR/1.73 sq M.predicted MDRD (S/P/Bld) [Vol rate/Area][facility] [employer] Comment on above:Average GFR for 70 or more years old: 75 mL/min/1.73sq m Chronic Kidney Disease: <60 mL/min/1.73sq m Kidney failure: <15 mL/min/1.73sq m eGFR calculated using average adult body mass. Additional eGFR calculator available at: http://www.Razer/multiple_crcl_2012.htm Glucose [Mass/Vol]91 mg/dL70 - 99 mg/dLBON SECOURS MERCY HEALTHPotassium [Moles/Vol]4.3 mmol/L3.7 - 5.3 mmol/LBON SECOURS MERCY [employer] TherapeuticsSodium [Moles/Vol] 139 mmol/L135 - 144 mmol/LBON SECOURS CrowdZoneUrea nitrogen (BldV) [Mass/Vol]17 mg/dL8 - 23 mg/dLBON SECOURS [facility] Karus TherapeuticsBON SECCirrus Data SolutionsY HEALTH CBC with Auto Differentialon 61-77-6722Tpegxulv Eos #0.11[facility] Karus TherapeuticsAbsolute Immature Granulocyte<0.03[facility] HEALTHAbsolute Lymph # 1.10[facility] HEALTHAbsolute Glacier #0.53[facility] Karus TherapeuticsBasophils (Bld) [#/Vol]0.03 10*3/uLB[facility]OU[facility] Karus TherapeuticsBasophils/100 WBC (Bld)1 %0 - 2 %[facility] HEALTHEosinophils/100 WBC (Bld)2 %1 - 4 %[facility] Karus TherapeuticsHematocrit (Bld) [Volume fraction]36.2 %Low40.7 - 50.3 %[facility] HEALTHHemoglobin.gastrointestinal spec 1 Ql (Stl)12.1 g/dLLow13.0 - 17.0 g/dLB[facility] SECOURS [facility] Karus TherapeuticsImmature granulocytes/100 WBC (Bld)0 %0[facility] CrzyfishY HEALTHInterpretation and review of laboratory resultsAbnormalB[facility] CrzyfishY Karus TherapeuticsLymphocytes/100 WBC (Bld)22 %Low24 - 43 %[facility] HEALTHMCH (RBC) [Entitic mass]31.1 pg25.2 - 33.5 pgBON WOOSTER COMMUNITY HOSPITALHC (RBC) [Mass/Vol] 33.4 g/dL28.4 - 34.8 g/dLBON WOOSTER COMMUNITY HOSPITALV (RBC) [Entitic vol]93.1 fL 82.6 - 102.9 fLUVA HEALTH UNIVERSITY HOSPITALMonocytes/100 WBC (Bld)11 %3 - 12 %[facility] UNIVERSITY HOSPITALNRBC Automated0.00.0 per 100 WBCUVA HEALTH UNIVERSITY HOSPITAL Platelet distribution width (Bld) [Ratio]13.2 %11.8 - 14.4 %[facility] UNIVERSITY HOSPITALPlatelet mean volume (Bld) [Entitic vol]11.2 fL8.1 - 13.5 fLUVA HEALTH UNIVERSITY HOSPITALPlatelets (Bld) [#/Vol]94 10*3/uLLowBON WESTERN RESERVE HOSPITALRBC (Bld) [#/Vol]3.89 10*6/uLLow4.21 - 5.77 m/uLUVA HEALTH UNIVERSITY HOSPITALSegmented neutrophils/100 WBC (Bld)64 %36 - 65 %UVA HEALTH UNIVERSITY HOSPITALSegs Absolute3.14 UV[facility] HE[facility] UNIVERSITY HOSPITALWBC (Bld) [#/Vol]4.9 10*3/uLBON MADISON COMMUNITY HOSPITALCBC with Diffon [id number]. Basophil0.03 k/uLNormal 0.00-0.20[facility] Medical CenterComment on above:Performed By: #### CDP, BMPX #### [employer] [address] [place] [address] Grain Elevator Operator: MDAbs. CoryImm.Granulocyte<0.54Uaoqfy2.00-0.30[facility] Medical CenterComment on above:Performed By: #### CDP, BMPX #### [employer] [address] [place], [place] [id number] Grain Elevator Operator: Marek Ray.Neutrophil (Seg)3.14 k/uLNormal1.50-8.10 [facility] Medical CenterComment on above:Performed By: #### CDP, BMPX #### [place] [address] Grain Elevator Operator: Tony Yanez MDBasophils/100 WBC (Bld)1 %Normal0-2MFresno Heart & Surgical HospitalComment on above:Performed By: #### CDP, BMPX #### [place] [address] Grain Elevator Operator: Tony Yanez MDEosinophils (Bld) [#/Vol]0.11 10*3/uLNormal 0.00-0.44[facility] Medical CenterComment on above:Performed By: #### CDP, BMPX #### [place] [address] Grain Elevator Operator: NEHA Rayosinophils/100 WBC (Bld)2 %Normal1-4[facility] Medical CenterComment on above:Performed By: #### EMILY, BMPX #### [place] [address] Grain Elevator Operator: Tony Yanez MDErythrocyte distribution width (RBC) [Ratio]13.2 %Afzwad00.8-14.4[facility] Medical CenterComment on above:Performed By: #### EMILY, BMPX #### [place] [address] Grain Elevator Operator: Tony Yanez MDHematocrit (Bld) [Volume fraction]36.2 %Low 40.7-50.3MFresno Heart & Surgical HospitalComment on above:Performed By: #### CDP, BMPX #### [place] [address] Grain Elevator Operator: Tony Yanez MDHemoglobin (Bld) [Mass/Vol]12.1 g/dLLow13.0-17.0 [facility] CenterComment on above:Performed By: #### CDP, BMPX #### [address] [address] Grain Elevator Operator: Ra Ray granulocytes/100 WBC (Bld)0 %Normal0 [facility] CenterComment on above:Performed By: #### CDP, BMPX #### [address] [address] Grain Elevator Operator: Tony Yanez MDLymphocytes (Bld) [#/Vol]1.10 10*3/uLNormal 1.10-3.70[facility] Medical CenterComment on above:Performed By: #### CDP, BMPX #### [place] [address] Grain Elevator Operator: Sammy Raymphocytes/100 WBC (Bld)22 %Ilb90-25XnvsjOhiohealth Southeastern Medical CenterComment on above:Performed By: #### CDP, BMPX #### [place] [address] Grain Elevator Operator: JOSEFA RayCH (RBC) [Entitic mass]31.1 nrYiwcde24.2-33.5 [facility] CenterComment on above:Performed By: #### CDP, BMPX #### [place] [address] Grain Elevator Operator: JOSEFA RayCHC (RBC) [Mass/Vol]33.4 g/eALfaksw67.4-34.8 [facility] CenterComment on above:Performed By: #### CDP, BMPX #### [address] [address] Grain Elevator Operator: JOSEFA RayCV (RBC) [Entitic vol]93.1 rVEdcgvt47.6-102.9 [facility] CenterComment on above:Performed By: #### CDP, BMPX #### [place] [address] Grain Elevator Operator: Tony Yanez MDMonocytes (Bld) [#/Vol]0.53 10*3/uLNormal 0.10-1.20[facility] CenterComment on above:Performed By: #### CDP, BMPX #### [place] [address] Grain Elevator Operator: JOSEFA Rayonocytes/100 WBC (Bld)11 %Normal3-12[facility] Medical CenterComment on above:Performed By: #### CDP, BMPX #### [place] [address] Grain Elevator Operator: Rosio Rayutrophil (Seg)64 %Zfhvlg01-60DthmpOhiohealth Southeastern Medical CenterComment on above:Performed By: #### CDP, BMPX #### [place] [address] Grain Elevator Operator: Tony Yanez MDNRBC Automated0.0 per 100 WBCNormal0.0[facility] Medical CenterComment on above:Performed By: #### CDP, BMPX #### [place] [address] Grain Elevator Operator: Shoshana Raytescotty mean volume (Bld) [Entitic vol]11.2 fL Normal8.1-13.5[facility] Medical CenterComment on above:Performed By: #### CDP, BMPX #### [address] [address] Grain Elevator Operator: ALEKS Raylatelets (Bld) [#/Vol]94 10*3/pWBvl290-334QrlghOhiohealth Southeastern Medical CenterComment on above:Performed By: #### CDP, BMPX #### [facility] [address] [place] [address] Grain Elevator Operator: ANDRES Ray ([facility]) [#/Vol]3.89 10*6/uLLow4.21-5.77[facility] Medical CenterComment on above:Performed By: #### CDP, BMPX #### [facility] [address] [place] [address] Grain Elevator Operator: NED Ray ([facility]) [#/Vol]4.9 10*3/uLNormal3.5-11.3[facility] Medical CenterComment on above:Performed By: #### EMILY, BMPX #### [facility] [address] [place], [place] [id number] Grain Elevator Operator: CROW Ray FACIAL BONES WO CONTRASTon [id number] FACIAL BONES WO CONTRASTEXAMINATION: CT OF THE [...] SYSTEM PROVIDED HISTORY: Impact with object riding manager credit collections TECHNOLOGIST PROVIDED HISTORY: 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 Results should be used as an adjunct to nosocomial control efforts to identify patients needing enhanced precautions. The test is not intended to identify patients with staphylococcal infections. Results should not be used to guide or monitor treatment for MRSA infections. Specimen Description.[facility]AL SWABMARTINSVILLE [facility] MRSA, DNA, Nasalon [id number], DNA, NasalNegativeNormilNEGOhiohealth Southeastern Medical CenterComment on above:Result Comment: NEGATIVE: MRSA DNA not detected by nucleic acid amplification. Results should be used as an adjunct to nosocomial control efforts to identify patients needing enhanced precautions. The test is not intended to identify patients with staphylococcal infections. Results should not be used to guide or monitor treatment for MRSA infections. Performed By: #### MRSANO #### [facility] [address] [place] [address] Grain Elevator Operator: TRACEY Raypecchelo Description.NASAL SWABAvita Health System Bucyrus HospitalComment on above:Performed By: #### MRSANO #### [facility] [address] [place] [address] Grain Elevator Operator: MARE Ray AUTO DIFFon [id number] #0.0 103/ulNormal 0.0-0.1The [facility] Health CenterComment on above:Performed By: #### CVDTBH #### [facility] [address] [address] [address] Natalya ArthurBasophils/100 WBC (Bld)0.6 %Normal0.2-2.0The [facility] Comment on above:Performed By: #### CVDTBH #### [facility] [address] [place] [address] Dr. Natalya Gilliam #0.1 103/ulNormal0.0-0.7The [facility] Health CenterComment on above: Performed By: #### CVDTBH #### [facility] [address] [place] [address] Dr. Natalya Pearsonosinophils/100 WBC (Bld)1.9 %Normal0.9-7.0The [facility] Comment on above:Performed By: #### CVDTBH #### [facility] [address] [place] [address] Dr. Natalya Pearsonrythrocyte distribution width (RBC) [Ratio]13.1 %Akhlnk98.0-15.0 The [facility] CenterComment on above:Performed By: #### ROMYTBH #### [facility] [address] [place] [address] Dr. Natalya ArthurHematocrit (Bld) [Volume fraction]38.5 %Critically low42.0-54.0 The [facility] CenterComment on above:Performed By: #### ROYMTBH #### [facility] [address] [place] [address] Dr. Natalya ArthurHemoglobin (Bld) [Mass/Vol]12.7 g/dLCritically low14.0-18.0The [facility] CenterComment on above:Performed By: #### ROMYTBH #### [facility] [address] [place] [address] Dr. Natalya Thompson #0.03 10e3/ulNormal0.00-0.03The [facility] CenterComment on above:Performed By: #### CVDTBH #### [facility] [address] [place] [address] Dr. Natalya Thompson %0.6 %Critically high0.0-0.5The [facility] Health CenterComment on above:Performed By: #### ROMYTBH #### [facility] [address] [place] [address] Dr. Natalya Rivera #0.8 103/ulCritically low1.2-3.8The [facility] Comment on above:Performed By: #### CVDTBH #### [facility] [address] [place] [address] Dr. Natalya Carranzamphocytes/100 WBC (Bld)15.3 %Critically low20.5-60.0The [facility] CenterComment on above:Performed By: #### CVDTBH #### [facility] [address] [place] [address] Dr. Natalya Esparza DIFF REQNONormalThe [facility] Health CenterComment on above: Performed By: #### CVDTBH #### [facility] [address] [place] [address] Dr. Natalya Akins (RBC) [Entitic mass]31.0 egJbqdjl24.9-34.0The [facility] CenterComment on above:Performed By: #### CVDTBH #### [facility] [address] [place] [address] Dr. Natalya Kendall (RBC) [Mass/Vol]33.0 g/xJWbxzxm29.9-35.2The [facility] CenterComment on above:Performed By: #### CVDTBH #### [facility] [address] [place] [address] Dr. Natalya Kendall (RBC) [Entitic vol]93.9 pZSraqgf36.0-94.0The [facility] CenterComment on above:Performed By: #### CVDTBH #### [facility] [address] [place] [address] Dr. Natalya Burks #0.4 103/ulNormal0.3-0.8ThRegency Hospital CompanyComment on above:Performed By: #### CVDTBH #### [facility] [address] [place] [address] Dr. Natalya Luzocytes/100 WBC (Bld)8.0 %Normal1.7-12.0[facility] Comment on above:Performed By: #### CVDTBH #### [facility] [address] [place] [address] Dr. Natalya VillelaUT #3.8 103/ulNormal1.4-6.5The [facility] CenterComment on above:Performed By: #### CVDTBH #### [facility] [address] [place] [address] Dr. Natalya Villelautrophils/100 WBC (Bld)73.6 %Bovcwg17.0-75.0The [facility] CenterComment on above:Performed By: #### CVDTBH #### [facility] [address] [place] [address] Dr. Natalya ArthurPlatelet mean volume (Bld) [Entitic vol]10.8 fLNormal9.5-13.5The [facility] CenterComment on above:Performed By: #### CVDTBH #### [facility] [address] [place] [address] Dr. Natalya ArthurPLT100 103/ulCritically epi647-519Fmy Blossvale HospitalComment on above:Performed By: #### CVDTBH #### [facility] [address] [place] [address] Dr. Natalya ArthurRBC4.10 106/ulCritically low4.70-6.10The [facility] CenterComment on above:Performed By: #### CVDTBH #### [facility] [address] [place] [address] Dr. Natalya ArthurWBC5.2 103/ulNormal4.0-11.0The [facility]ossvale HospitalComment on above: Performed By: #### CVDTBH #### [facility] [address] [place] [address] Dr. Natalya ArthurCT CSPINE WO CONon [id number] NIYAHINE WO CONEXAMINATION: CT CSPINE WO CON HISTORY: [...] Electronically authenticated by: ARTHUR LÓPEZ Date: 2021-08-16 17:00[facility] CenterCT FACIAL BONES WO CONTRASTon [id number] acute facial fracture. Soft tissue swelling and ecchymosis of the left face and scalp. [facility] CONSOLIDATEDEXAMINATION: CT OF THE FACE WITHOUT CONTRAST [...] SYSTEM PROVIDED HISTORY: Impact with object riding manager credit collections TECHNOLOGIST PROVIDED HISTORY: Impact with object riding manager credit collections Decision Support Exception - unselect if not [...] focus of subcutaneous emphysema left periorbital region. [facility] Augustin Koroma MD - 08/16/2021 EXAMINATION: [...] SYSTEM PROVIDED HISTORY: Impact with object riding manager credit collections TECHNOLOGIST PROVIDED HISTORY: Impact with object riding manager credit collections Decision Support Exception - unselect if not [...] of the left face and scalp. [employer] Work Phone: cT FACIAL BONES WO CONTRASTOrdered By: Augustin Hodges on [id number] Work Phone: ct HEAD WO CONon [id number] HEAD WO CONCT head without contrast CLINICAL: [...] Electronically authenticated by: SUKH CROFT Date: 2021-08-16 15:37[facility] CenterCT HEAD WO CONTRASTon [id number] HEAD WO CONTRASTEXAMINATION: CT OF THE HEAD [...] Signed by: Hardeep Godwin MD 08/16/21 Final resultNormalMerKaiser Foundation HospitalMinimal left frontal subarachnoid hemorrhage in 1 of the sulci. No evidence of extra-axial collections. Prominent left frontal and parietal scalp swelling/hemorrhage. The findings were sent to the Radiology Results Communication Center at 9:22 pm on 08/16/2021 to be communicated to a licensed caregiver. [facility] CONSOLIDATEDEXAMINATION: CT OF THE HEAD WITHOUT CONTRAST [...] TISSUES/SKULL: There is left frontoparietal scalp swelling/hemorrhage. [facility] Hardeep Carlson MD - 08/16/2021 EXAMINATION: CT OF THE [...] to be communicated to a licensed caregiver. CAROL ANN [employer] Work Phone: ct HEAD WO CONTRASTOrdered By: Hardeep Godwin on [id number] Work Phone: [phone] PCR (CVDTBH)on [id number]-CoV-2 (COVID- 19) RNA GÓMEZ+probe Ql (Unsp spec)Not detectedNormalNOT DETECTEDThe [facility] Community Hospitalment on above:Result Comment: This test is not yet approved or cleared by the [place] FDA. When there are no FDA-approved or cleared tests available, and other criteria are met, FDA can make tests available under an emergency access mechanism called an Emergency Use Authorization (EUA). The EUA for this test is supported by the [place] of Health and Human Service's (HHS's) declaration [...] consistent with SARS-CoV-2.Performed By: #### CVDTBH #### [facility] [address] [place] [address] Dr. Natalya Colin Panel Informationon [id number] Study observation (narrative)CAROL ANN TRIPATHI [employer] Work Phone: pROF CHEM 8 (BAS METB)on [id number] gap [Moles/Vol]13.6 mmol/LNormalThe [facility] CenterComment on above:Performed By: #### CVDTBH #### [facility] [address] [place] [address] Dr. Natalya ArthurCalcium [Mass/Vol]9.0 mg/dLNormal8.5-10.1[facility] Comment on above:Performed By: #### CVDTBH #### [facility] [address] [place] [address] Dr. Natalya ArthurChloride [Moles/Vol]107 mmol/AAcdser65-142XxcAultman Orrville Hospital Comment on above:Performed By: #### CVDTBH #### [facility] [address] [place] [address] Dr. Natalya ArthurCO2 [Moles/Vol]24.4 mmol/UOmbuqn24.0-32.0[facility] Comment on above:Performed By: #### CVDTBH #### [facility] [address] [place] [address] Dr. Natalya ArthurCreatinine [Mass/Vol]1.09 mg/dLNormal0.70-1.30The [facility] CenterComment on above:Performed By: #### CVDTBH #### [facility] [address] [place] [address] Dr. Natalya PearsonGFR-AF MEXICAN>60Normal>=60The [facility] CenterComment on above:Performed By: #### CVDTBH #### [facility] [address] [place] [address] Dr. Natalya PearsonGFR-NON AF MEXICAN>60Normal>=60The [facility] CenterComment on above:Performed By: #### CVDTBH #### [facility] [address] [address] [address] Natalya ArthurGlucose [Mass/Vol]111 mg/dLCritically vbdq63-054Ybz [facility] CenterComment on above:Performed By: #### CVDTBH #### [facility] [address] [place] [address] Dr. Natalya ArthurPotassium [Moles/Vol]4.0 mmol/LNormal3.5-5.1[facility] Comment on above:Performed By: #### CVDTBH #### [facility] [address] [place] [address] Dr. Natalya ArthurSodium [Moles/Vol]141 mmol/FZsirdv066-282EvzAultman Orrville Hospital Comment on above:Performed By: #### CVDTBH #### [facility] [address] [place] [address] Dr. Natalya ArthurUrea nitrogen [Mass/Vol]21.0 mg/dLCritically high7.0-18.0[facility] HospitalComment on above:Performed By: #### CVDTBH #### [facility] [address] [place] [address] nitrogen/Creatinine [Mass ratio]19.3 mg/mgNoOhio Valley HospitalComment on above:Performed By: #### CVDTBH #### [facility] [address] [place] [address] Dr. Natalya ArthurPROTKing [id number] Coag (PPP) [Relative time]1.12 {INR} NormalAultman Orrville HospitalComment on above:Performed By: #### FETIBC, FERR #### [facility] [address] [place] [address] Dr. Natalya Gonzalez GUIDELINESSEE BELOWUniversity Hospitals Lake West Medical CenterComment on above:Result Comment: DESIRED INR: 2.0 - 3.0 CONDITIONS NOT LISTED BELOW 2.5 - 3.5 FOR PROSTHETIC HEART VALVE REPLACEMENT 2.5 - 3.5 RECURRENT THROMBOSIS Performed By: #### FETIBC, FERR #### [facility] [address] [place] [address] Dr. Natalya Galdamez Coag (PPP) [Time]12.0 sCritically high9.0-11.6The [facility] Health CenterComment on above:Performed By: #### FETIBC, FERR #### [facility] [address] [place] [address] Dr. Natalya GaldamezTon 25-69-2026yMDZ Coag (Bld) [Time]28.6 yNwwmkx44.3-36.2The [facility] CenterComment on above:Performed By: #### FETIBC, FERR #### [facility] [address] [place] [address] Dr. Natalya ArthurScrgyRJONX-3-AQMHPKWMYEHjg 24-01-7491Mcxfk-1-Antitrypsin, Zwpgz225 mg/xVOsrzat664-373Ass [facility] CenterComment on above:Performed By: #### ALPHA-1 #### [facility] [address] [place] [address] Dr. Natalya Hummel EIA W/REFLEX 5 BIOMARKERSon [id number] DirectNegative NormalNegativeThe [facility] Health CenterComment on above:Performed By: #### CVDTBH #### [facility] [address] [place] [address] Dr. Natalya ArthurCERULOPLASMINon 33-49-8569Qyvgddxiaqcoq07.0 mg/rDHekwim97.0-31.0 The [facility] CenterComment on above:Performed By: #### CEUROPL #### [facility] [address] [place] [address] Dr. Natalya Guzman MUSCLE ANTIBODYon [id number] (Smooth Muscle) Antibody 25 UnitsCritically high0-19The [facility] Health CenterComment on above:Result Comment: Negative 0 - 19 Weak positive 20 - 30 Moderate to strong positive >30 . Actin Antibodies are found in 52-85% of patients with autoimmune hepatitis or chronic active hepatitis and in 22% of patients with primary biliary cirrhosis.Performed By: #### CVDTBH #### [facility] [address] [place] [address] Dr. Natalya Neely AUTO DIFFon [id number] #0.0 103/ulNormal0.0-0.1The [facility] CenterComment on above:Performed By: #### FETIBC, FERR #### [facility] [address] [place] [address] Dr. Natalya ArthurBasophils/100 WBC (Bld)0.4 %Normal0.2-2.0[facility] Comment on above:Performed By: #### FETIBC, FERR #### [facility] [address] [place] [address] Dr. Natalya Gilliam #0.2 103/ulNormal0.0-0.7The [facility] CenterComment on above: Performed By: #### FETIBC, FERR #### [facility] [address] [place] [address] Dr. Natalya Pearsonosinophils/100 WBC (Bld)4.0 %Normal0.9-7.0[facility] Comment on above:Performed By: #### FETIBC, FERR #### [facility] [address] [place] [address] Dr. Natalya Pearsonrythrocyte distribution width (RBC) [Ratio]13.8 %Ialyqd79.0-15.0 [facility] HospitalComment on above:Performed By: #### FETIBC, FERR #### [facility] [address] [place] [address] Dr. Natalya ArthurHematocrit (Bld) [Volume fraction]41.5 %Critically low42.0-54.0 The [facility] CenterComment on above:Performed By: #### FETIBC, FERR #### [facility] [address] [place] [address] Dr. Natalya ArthurHemoglobin (Bld) [Mass/Vol]13.2 g/dLCritically low14.0-18.0The [facility] CenterComment on above:Performed By: #### FETIBC, FERR #### [facility] [address] [address] [address] Natalya Thompson #0.02 10e3/ulNormal0.00-0.03The [facility] Health CenterComment on above:Performed By: #### FETIBC, FERR #### [facility] [address] [address] [address] Natalya Thompson %0.4 %Normal0.0-0.5The [facility] Health CenterComment on above: Performed By: #### FETIBC, FERR #### [facility] [address] [place] [address] Dr. Natalya Rivera #0.8 103/ulCritically low1.2-3.8The [facility] Comment on above:Performed By: #### FETIBC, FERR #### [facility] [address] [place] [address] Dr. Natalya Sanchezhocytes/100 WBC (Bld)17.0 %Critically low20.5-60.0The [facility] CenterComment on above:Performed By: #### FETIBC, FERR #### [facility] [address] [place] [address] Dr. Natalya ReisUAL DIFF REQNONormalThe [facility] CenterComment on above: Performed By: #### FETIBC, FERR #### [facility] [address] [place] [address] Dr. Natalya Kendall (RBC) [Entitic mass]30.9 azVcvvnp71.9-34.0The [facility] HospitalComment on above:Performed By: #### FETIBC, FERR #### [facility] [address] [place] [address] Dr. Natalya Kendall (RBC) [Mass/Vol]31.8 g/oXVeypqm87.9-35.2The [facility] CenterComment on above:Performed By: #### FETIBC, FERR #### [facility] [address] [place] [address] Dr. Natalya Kendall (RBC) [Entitic vol]97.2 fLCritically high80.0-94.0The [facility] CenterComment on above:Performed By: #### FETIBC, FERR #### [facility] [address] [place] [address] Dr. Natalya Burks #0.5 103/ulNormal0.3-0.8The [facility] Health CenterComment on above:Performed By: #### FETIBC, FERR #### [facility] [address] [place] [address] Dr. Natalya Luzocytes/100 WBC (Bld)10.5 %Normal1.7-12.0[facility] Comment on above:Performed By: #### FETIBC, FERR #### [facility] [address] [place] [address] Dr. Natalya Crowley #3.2 103/ulNormal1.4-6.5The [facility] CenterComment on above:Performed By: #### FETIBC, FERR #### [facility] [address] [place] [address] Dr. Natalya Biggsophils/100 WBC (Bld)67.7 %Iftrkr36.0-75.0The [facility] CenterComment on above:Performed By: #### FETIBC, FERR #### [facility] [address] [place] [address] Dr. Natalya Watson mean volume (Bld) [Entitic vol]10.7 fLNormal9.5-13.5The [facility] CenterComment on above:Performed By: #### FETIBC, FERR #### [facility] [address] [place] [address] Dr. Natalya ArthurPLT106 103/ulCritically zdt950-403Rwd [facility] CenterComment on above:Result Comment: smear reviewedPerformed By: #### FETIBC, FERR #### [facility] [address] [place] [address] Dr. Natalya ArthurRBC4.27 106/ulCritically low4.70-6.10The [facility] CenterComment on above:Performed By: #### FETIBC, FERR #### [facility] [address] [place] [address] Dr. Natalya ArthurWBC4.8 103/ulNormal4.0-11.0The [facility] CenterComment on above: Performed By: #### FETIBC, FERR #### [facility] [address] [place] [address] Dr. Natalya ArthurFERRITINon 72-71-1279Qxvpcjaf [Mass/Vol]94.0 ng/mLNormal 17.9-464.0[facility] HospitalComment on above:Performed By: #### FETIBC, FERR #### [facility] [address] [place] [address] Dr. Natalya Myers AND TIBCon 07-12-2021% PAODBTVVUQ12.8 %NormalAultman Orrville HospitalComment on above:Performed By: #### FETIBC, FERR #### [facility] [address] [place] [address] Dr. Natalya Myers [Mass/Vol]106.0 ug/aKDaaixm63.0-181.0[facility] Comment on above:Performed By: #### FETIBC, FERR #### [facility] [address] [place] [address] Dr. Natalya Pickard XOGTKV684.0 ug/oPLyjtcs319.0-497.0[facility] Comment on above:Performed By: #### FETIBC, FERR #### [facility] [address] [place] [address] Dr. Natalya ArthurLIPID PROFILEon 07-00-1232BPAT-HDL RATIO NORMSAultman HospitalComment on above:Result Comment: 3.3 - 4.4 LOW RISK 4.4 - 7.1 AVERAGE RISK 7.1 - 11.0 MODERATE RISK >11.0 HIGH RISKPerformed By: #### LIVER, LIPID #### [facility] [address] [place] [address] Dr. Natalya ArthurCholesterol [Mass/Vol]139 mg/dLNormal<=200The [facility] Comment on above:Performed By: #### LIVER, LIPID #### [facility] [address] [address] [address] Natalya ArthurCholesterol in HDL [Mass/Vol]58 mg/zLMmzqpm99-74Chz [facility] CenterComment on above:Performed By: #### LIVER, LIPID #### [facility] [address] [address] [address] Natalya ArthurCholesterol in LDL [Mass/Vol]58.8 mg/dLNoOhio Valley HospitalComment on above:Performed By: #### LIVER, LIPID #### [facility] [address] [place] [address] Dr. Natalya Benítezesterbacilio.total/Cholesterol in HDL [Mass ratio]2.4 {ratio} NormalThe [facility] Health CenterComment on above:Performed By: #### LIVER, LIPID #### [facility] [address] [place] [address] Dr. Natalya Gross NORMAL> or = 60 mg/dl - LOW CARDIOVASCULAR RISK <40 mg/dl - HIGH CARDIOVASCULAR RISKUniversity Hospitals Lake West Medical CenterComment on above:Performed By: #### LIVER, LIPID #### [facility] [address] [place] [address] Dr. Natalya Girard CALC NORMALSEE BELOWUniversity Hospitals Lake West Medical CenterComment on above:Result Comment: <100 mg/dl OPTIMAL 100 - 129 mg/dl NEAR OR ABOVE OPTIMAL 130 - 159 mg/dl BORDERLINE HIGH 160 - 189 mg/dl HIGH >190 mg/dl VERY HIGH Performed By: #### LIVER, LIPID #### [facility] [address] [place] [address] Dr. Natalya ArthurTriglyceride [Mass/Vol]111 mg/dLNormal<=150[facility] Comment on above:Performed By: #### LIVER, LIPID #### [facility] [address] [place] [address] Dr. Natalya ArthurVLDL CALC22.2 mg/dLNoOhio Valley HospitalComment on above: Performed By: #### LIVER, LIPID #### [facility] [address] [address] [address] Natalya Rincon PROFILEon 37-97-1635Jtriiwu [Mass/Vol]3.4 g/dLNormal3.4-5.0 [facility] on above:Performed By: #### LIVER, LIPID #### [facility] [address] [address] [address] Natalya ArthurAlbumin/Globulin [Mass ratio]0.9 {ratio}NormalThe [facility] CenterComselect specialty hospital[facility] [place] on above:Performed By: #### LIVER, LIPID #### [facility] [address] [address] [address] Natalya Vale [Catalytic activity/Vol]129 U/LCritically kcre33-090Lbq [facility] on above:Performed By: #### LIVER, LIPID #### [facility] [address] [place] [address] Dr. Natalya Paul [Catalytic activity/Vol]72 U/LCritically qlwy61-67Eiu [facility] Hospitalment on above:Performed By: #### LIVER, LIPID #### [facility] [address] [address] [address] Natalya ArthurAST [Catalytic activity/Vol]57 U/LCritically rnkf27-17CanPremier Health on above:Performed By: #### LIVER, LIPID #### [facility] [address] [place] [address] Dr. Natalya Bhatia, CONJUGATED0.2 mg/dLNormal0.0-0.3TKing's Daughters Medical Center [place] Comment on above:Performed By: #### LIVER, LIPID #### [facility] [address] [place] [address] Dr. Natalya Palmerirubin [Mass/Vol]0.6 mg/dLNormal0.2-1.3TKing's Daughters Medical Center [place] Comment on above:Performed By: #### LIVER, LIPID #### [facility] [address] [place] [address] Dr. Natalya ArthurGlobulin (S) [Mass/Vol]3.9 g/dLNormalThe [facility] CenterComment on above:Performed By: #### LIVER, LIPID #### [facility] [address] [place] [address] Dr. Natalya ArthurProtein [Mass/Vol]7.3 g/dLNormal6.1-8.2[facility] Comment on above:Performed By: #### LIVER, LIPID #### [facility] [address] [place] [address] Dr. Natalya ArthurPROTIMEon 28-25-9837LYV Coag (PPP) [Relative time]1.10 {INR} NormalAultman Orrville HospitalComment on above:Performed By: #### FETIBC, FERR #### [facility] [address] [place] [address] Dr. Natalya Gonzalez GUIDELINESSEE [facility] & Brentwood HospitalComment on above:Result Comment: DESIRED INR: 2.0 - 3.0 CONDITIONS NOT LISTED BELOW 2.5 - 3.5 FOR PROSTHETIC HEART VALVE REPLACEMENT 2.5 - 3.5 RECURRENT THROMBOSIS Performed By: #### FETIBC, FERR #### [facility] [address] [place] [address] Dr. Natalya ArthurPT Coag (PPP) [Time]11.8 sCritically high9.0-11.6The [facility] Health CenterComment on above:Performed By: #### FETIBC, FERR #### [facility] [address] [place] [address] Dr. Natalya ArthurComprehensive Metabolic Panelon 53-68-0836Cdzromv [Mass/Vol]3.9 g/dLNormal3.6-5.1[facility] SpecialistComment on above:Performed By: #### CMP #### [facility] [address], [place] [id number]/Globulin [Mass ratio]1.4 {ratio}Normal1.0-2.5NoZanesville City HospitalComment on above:Performed By: #### CMP #### [facility] [address], [place] [id number] [Catalytic activity/Vol]128 U/ZGtpgpv72-909Gzhiowtu [place] [facility] SpecialistComment on above:Performed By: #### CMP #### [facility] [address] [place], [place] [id number] [Catalytic activity/Vol]45 U/LNormal9-46N[facility] campusn [facility] SpecialistComment on above:Result Comment: 02/22/2021 Female reference range changed.Performed By: #### CMP #### [facility] [address] [place], [place] [id number] gap [Moles/Vol]15 mmol/GVdcohi37-86Qceldvfx [place] [facility] SpecialistComment on above:Result Comment: Effective 03/30/2019 reference range changed.Performed By: #### CMP #### [facility] [address] [place], [place] [id number] [Catalytic activity/Vol]49 U/SXxns43-67Bgvsqmht [place] [facility] SpecialistComment on above:Performed By: #### CMP #### [facility] [address] [place], [place] [id number] [Mass/Vol]0.36 mg/dLNormal0.30-1.20NortPremier Health [facility] SpecialistComment on above:Performed By: #### CMP #### [facility] [address] [place], [place] [id number]/CREA15 RatioNormal6-22NortPremier Health Miami [facility] Hospital NorthX Ray Physician Comment on above:Performed By: #### CMP #### [facility] [address] [place], [place] [id number] [Mass/Vol]9.2 mg/dLNormal8.6-10.2[facility] SpecialistComment on above:Performed By: #### CMP #### [facility] [address] [place], [place] [id number] [Moles/Vol]104 mmol/MIlvkks37-734Mgqkflxl [place] [facility] SpecialistComment on above:Performed By: #### CMP #### [facility] [address] [facility] [place] [id number] [Moles/Vol]24 mmol/WYwnrbr20-58Dcqfvlvb [place] [facility] SpecialistComment on above:Performed By: #### CMP #### [facility] [address] [place], [place] [id number] [Mass/Vol]1.0 mg/dLNormal0.7-1.4NoCleveland Clinic [facility] SpecialistComment on above:Performed By: #### CMP #### [facility] [address] [place], [place] [id number] mL/min/1.81r7Nibdds>60NortPremier Health [facility] SpecialistComment on above:Performed By: #### CMP #### [facility] [address] [place], [place] [id number] mL/min/1.75p7Qdipdt>60NortPremier Health [facility] SpecialistComment on above:Performed By: #### CMP #### [facility] [address] [place], [place] [id number] (S) [Mass/Vol]2.7 g/dLNormal1.9-3.7NoCleveland Clinic [facility] SpecialistComment on above:Performed By: #### CMP #### [facility] [address] [place], [place] [id number] [Mass/Vol]111 mg/pWQgwa88-39Xbnfnsyz [place] [facility] SpecialistComment on above:Result Comment: For FASTING Glucose --- ADA reference ranges: Normal 65-99 mg/dl Prediabetes 100-125 Diabetes >/= 126Performed By: #### CMP #### [facility] [address] [place], [place] [id number] [Moles/Vol]4.5 mmol/LNormal3.5-5.5NortPremier Health [facility] SpecialistComment on above:Performed By: #### CMP #### [facility] [address] [place], [place] [id number] [Mass/Vol]6.6 g/dLNormal6.1-8.1[facility] [place] [facility] SpecialistComment on above:Performed By: #### CMP #### [facility] [address] [place], [place] [id number] [Moles/Vol]139 mmol/JRqgkwq394-035Zjniaoua [place] [facility] SpecialistComment on above:Performed By: #### CMP #### [facility] [address], [place] [id number] nitrogen [Mass/Vol]15 mg/dLNormal7-25NoC[facility] Clinic [facility] SpecialistComment on above:Performed By: #### CMP #### [facility] [address] [place], [place] [id number] - HEPATITIS PANEL ABC GENERAL WITH REFLEXon 06-07-2021 HEPATITIS A AB, IQTMWFdx-BzzugvxiOlfdaxNWF-KNHXNFYUJifkneii [place] Medical SpecialistComment on above:Order Comment: [facility] performed at: [employer], [employer] [facility], [address] [place] [address], [address] [place] [address], [id number], Financial Officer: Sd Sharma MD [facility] Collection Date/Time: [facility] Results Received Date/Time: [facility] Reported Date/Time: [id number] Comment: For additional information, please refer to http://education.[employer]/faq/QJJ522 (This link is being provided for informational/ educational purposes only.)Performed By: #### [id number] #### [facility] [address] [place], [place] [address]YUHZSHADR B CORE AB FEAFORja-EdweeczsNjthhkYCA-OCTIJSZPJsjvluoe [place] Medical SpecialistComment on above:Order Comment: [facility] performed at: [employer], [employer] [facility], [address] [place] [address], [address] [place] [address], [id number], Financial Officer: Sd Sharma MD [facility] Date/Time: [facility] Results Received Date/Time: [facility] Reported Date/Time: [id number] By: #### [id number] #### [facility] [address] [place], [place] [address]SYSPZMDXF B SURFACE ANTIBODY CESdr-GlyqlpvpLpnkqcZVX-TUCMNYCA [facility] SpecialistComment on above:Order Comment: [facility] performed at: [employer], [employer] [facility], [address] [place] [address]e Rd, [address] [place] [address], [address] [place] [address], Financial Officer: Sd Sharma MD [facility] Collection Date/Time: [facility] Results Received Date/Time: [facility] Reported Date/Time: [id number] By: #### [id number] #### [facility] [address] [place], [place] [address]LWWIYJCPP B SURFACE QYUXFIFCdo-JemqypsrJrbgubQMX-SYRYEZFJXbwkwdph [place] [facility] SpecialistComment on above:Order Comment: [facility] performed at: [employer], [employer] [facility], [address] [place] [address], [address] [place] [address], [address] [place] [address], Financial Officer: Sd Sharma MD [facility] Date/Time: [facility] Results Received Date/Time: [facility] Reported Date/Time: [id number] By: #### [id number] #### [facility] [address] [place], [place] [address]JRHVYJZSN C PXNKYBGRRok-UjyujhneIxfbdkSKB-IGTWHJWKLjjxhrul [place] [facility] SpecialistComment on above:Order Comment: [facility] performed at: [employer], [employer] [facility], [address] [place] [address], [address] [place] [address], [address] [place] [address], Financial Officer: Sd Sharma MD [facility] Date/Time: [facility] Results Received Date/Time: [facility] Reported Date/Time: [id number] By: #### [id number] #### [facility] [address] [place], [place] [address]LIPRVA TO CUT-OFF0.02Normal<1.00[place] [facility] Comment on above:Order Comment: [facility] performed at: [employer], [employer] [facility], [address] [place] [address], [address] [place] [address], [address] [place] [address], Financial Officer: Sd Sharma MD [facility] Date/Time: [facility] Results Received Date/Time: [id number] [facility] Reported Date/Time: [id number] Comment: HCV antibody was non-reactive. There is no laboratory evidence of HCV infection. In most cases, no further action is required. However, if recent HCV exposure is suspected, a test for HCV RNA (test code 65793) is suggested. For additional information please refer to http://education.[employer]/faq/GQY46h7 (This link is being provided for informational/ educational purposes only.)Performed By: #### [id number] #### [facility] [address] [place], [place] [address]Ytewfles Blood Count with Auto Diffon 99-65-8914Ewlotkeld (Bld) [#/Vol]0.05 10*3/uLNormal0.00-0.20NoZanesville City HospitalComment on above:Performed By: #### CBCAD, CMP, VITD, TSH reflex FT4, LIPD #### [facility] [address] [place], [place] [id number]/100 WBC (Bld)1.1 %NormalNoCleveland Clinic [facility] SpecialistComment on above:Performed By: #### CBCAD, CMP, VITD, TSH reflex FT4, LIPD #### [facility] [address] [place], [place] [id number] (Bld) [#/Vol]0.29 10*3/uLNormal0.02-0.50NoC[facility] Clinic [facility] SpecialistComment on above:Performed By: #### CBCAD, CMP, VITD, TSH reflex FT4, LIPD #### [facility] [address] [place], [place] [id number]/100 WBC (Bld)6.3 %NormalUc Health SpecialistComment on above:Performed By: #### CBCAD, CMP, VITD, TSH reflex FT4, LIPD #### [facility] [address] [place], [place] [id number] distribution width (RBC) [Ratio]12.9 %Normal 11.0-15.0[facility] SpecialistComment on above:Performed By: #### CBCAD, CMP, VITD, TSH reflex FT4, LIPD #### [facility] [address] [place], [place] [id number] (Bld) [Volume fraction]40.4 %Ogiyoy65.5-50.0 [facility] SpecialistComment on above:Performed By: #### CBCAD, CMP, VITD, TSH reflex FT4, LIPD #### [facility] [address] [place], [place] [id number] (Bld) [Mass/Vol]13.1 g/yKQdjhjc85.0-17.1[facility] [place] [facility] SpecialistComment on above:Performed By: #### CBCAD, CMP, VITD, TSH reflex FT4, LIPD #### [facility] [address] [place], [place] [id number] (Bld) [#/Vol]0.9 10*3/uLNormal0.9-3.9[facility] SpecialistComment on above:Performed By: #### CBCAD, CMP, VITD, TSH reflex FT4, LIPD #### [facility] [address] [place], [place] [id number]/100 WBC (Bld)18.6 %NormalNoCleveland Clinic [facility] SpecialistComment on above:Performed By: #### CBCAD, CMP, VITD, TSH reflex FT4, LIPD #### [facility] [address] [place], [place] [id number] (RBC) [Entitic mass]31.0 wzXqiaxf71.0-33.0[facility] SpecialistComment on above:Performed By: #### CBCAD, CMP, VITD, TSH reflex FT4, LIPD #### [facility] [address] [place], [place] [id number] (RBC) [Mass/Vol]32.4 g/kVLyeeou37.0-36.0[facility] SpecialistComment on above:Performed By: #### CBCAD, CMP, VITD, TSH reflex FT4, LIPD #### [facility] [address] [place], [place] [id number] (RBC) [Entitic vol]96 nPLscrju96-073Lixxshlm [place] [facility] SpecialistComment on above:Performed By: #### CBCAD, CMP, VITD, TSH reflex FT4, LIPD #### [facility] [address] [place], [place] [id number] (Bld) [#/Vol]0.4 10*3/uLNormal0.2-0.9NortPremier Health [facility] SpecialistComment on above:Performed By: #### CBCAD, CMP, VITD, TSH reflex FT4, LIPD #### [facility] [address] [place], [place] [id number]/100 WBC (Bld)8.4 %NormalNoCleveland Clinic [facility] SpecialistComment on above:Performed By: #### CBCAD, CMP, VITD, TSH reflex FT4, LIPD #### [facility] [address] [place], [place] [id number] (Bld) [#/Vol]3.0 10*3/uLNormal1.5-7.8NortPremier Health [facility] SpecialistComment on above:Performed By: #### CBCAD, CMP, VITD, TSH reflex FT4, LIPD #### [facility] [address] [place], [place] [id number]/100 WBC (Bld)65.4 %NormalNortPremier Health [facility] SpecialistComment on above:Performed By: #### CBCAD, CMP, VITD, TSH reflex FT4, LIPD #### [facility] [address] [place], [place] [id number] mean volume (Bld) [Entitic vol]10.20 fLNormal 7.50-12.50NortPremier Health [facility] SpecialistComment on above:Performed By: #### CBCAD, CMP, VITD, TSH reflex FT4, LIPD #### [facility] [address] [place], [place] [id number] (Bld) [#/Vol]141 10*3/oIQorrax250-914Ukrbanyx [place] [facility] SpecialistComment on above:Performed By: #### CBCAD, CMP, VITD, TSH reflex FT4, LIPD #### [facility] [address] [place], [place] [id number] (Bld) [#/Vol]4.22 10*6/uLNormal4.20-5.80NoC[facility] Clinic [facility] SpecialistComment on above:Performed By: #### CBCAD, CMP, VITD, TSH reflex FT4, LIPD #### [facility] [address] [place], [place] [id number]-JP46.2 sJWmgrvn81.0-50.0NoC[facility] Clinic [facility] Specialist Comment on above:Performed By: #### CBCAD, CMP, VITD, TSH reflex FT4, LIPD #### [facility] [address] [place], [place] [id number] (Bld) [#/Vol]4.6 10*3/uLNormal3.8-11.0NoC[facility] Clinic [facility] SpecialistComment on above:Performed By: #### CBCAD, CMP, VITD, TSH reflex FT4, LIPD #### [facility] [address] [place], [place] [id number] Metabolic Panelon 56-11-4923Bfzirkf [Mass/Vol] 4.0 g/dLNormal3.6-5.1[facility] SpecialistComment on above:Performed By: #### CBCAD, CMP, VITD, TSH reflex FT4, LIPD #### [facility] [address] [place], [place] [id number]/Globulin [Mass ratio]1.5 {ratio}Normal1.0-2.5NoC[facility] Clinic [facility] SpecialistComment on above:Performed By: #### CBCAD, CMP, VITD, TSH reflex FT4, LIPD #### [facility] [address] [place], [place] [id number] [Catalytic activity/Vol]140 U/VLkrm02-678Xaicnnto [place] [facility] SpecialistComment on above:Performed By: #### CBCAD, CMP, VITD, TSH reflex FT4, LIPD #### [facility] [address] [place], [place] [id number] [Catalytic activity/Vol]63 U/LHigh9-46NoC[facility] Clinic [facility] SpecialistComment on above:Result Comment: 02/22/2021 Female reference range changed.Performed By: #### CBCAD, CMP, VITD, TSH reflex FT4, LIPD #### [facility] [address] [place], [place] [id number] gap [Moles/Vol]17 mmol/CZgwlzb13-26Rgisbvvd [place] [facility] SpecialistComment on above:Result Comment: Effective 03/30/2019 reference range changed.Performed By: #### CBCAD, CMP, VITD, TSH reflex FT4, LIPD #### [facility] [address] [place], [place] [id number] [Catalytic activity/Vol]62 U/IEplp53-04VjuwrxdxCleveland Clinic [facility] SpecialistComment on above:Performed By: #### CBCAD, CMP, VITD, TSH reflex FT4, LIPD #### [facility] [address] [place], [place] [id number] [Mass/Vol]0.41 mg/dLNormal0.30-1.20NortPremier Health [facility] SpecialistComment on above:Performed By: #### CBCAD, CMP, VITD, TSH reflex FT4, LIPD #### [facility] [address] [place], [place] [id number]/CREA13 RatioNormal6-22NoC[facility] Clinic [facility] Specialist Comment on above:Performed By: #### CBCAD, CMP, VITD, TSH reflex FT4, LIPD #### [facility] [address] [place], [place] [id number] [Mass/Vol]9.5 mg/dLNormal8.6-10.2[facility] SpecialistComment on above:Performed By: #### CBCAD, CMP, VITD, TSH reflex FT4, LIPD #### [facility] [address] [facility] [id number] [Moles/Vol]106 mmol/RDrynkg06-670Yqjgocmh [place] [facility] SpecialistComment on above:Performed By: #### CBCAD, CMP, VITD, TSH reflex FT4, LIPD #### [facility] [address] [place], [place] [id number] [Moles/Vol]26 mmol/KSighzt37-27Iqcqeand [place] [facility] SpecialistComment on above:Performed By: #### CBCAD, CMP, VITD, TSH reflex FT4, LIPD #### [facility] [address] [place], [place] [id number] [Mass/Vol]0.9 mg/dLNormal0.7-1.4NortPremier Health [facility] SpecialistComment on above:Performed By: #### CBCAD, CMP, VITD, TSH reflex FT4, LIPD #### [facility] [address] [place], [place] [id number] mL/min/1.20j9Mntzfc>60NortPremier Health [facility] SpecialistComment on above:Performed By: #### CBCAD, CMP, VITD, TSH reflex FT4, LIPD #### [facility] [address] [place], [place] [id number] mL/min/1.92t5Glbugo>60NortPremier Health [facility] SpecialistComment on above:Performed By: #### CBCAD, CMP, VITD, TSH reflex FT4, LIPD #### [facility] [address] [place], [place] [id number] (S) [Mass/Vol]2.6 g/dLNormal1.9-3.7NoC[facility] Clinic [facility] SpecialistComment on above:Performed By: #### CBCAD, CMP, VITD, TSH reflex FT4, LIPD #### [facility] [address] [place], [place] [id number] [Mass/Vol]89 mg/qAYhbjth09-36Gedfrwkm [place] [facility] SpecialistComment on above:Result Comment: For FASTING Glucose --- ADA reference ranges: Normal 65-99 mg/dl Prediabetes 100-125 Diabetes >/= 126Performed By: #### CBCAD, CMP, VITD, TSH reflex FT4, LIPD #### [facility] [address] [place], [place] [id number] [Moles/Vol]5.0 mmol/LNormal3.5-5.5NoC[facility] Clinic [facility] SpecialistComment on above:Performed By: #### CBCAD, CMP, VITD, TSH reflex FT4, LIPD #### [facility] [address] [place], [place] [id number] [Mass/Vol]6.6 g/dLNormal6.1-8.1[facility] SpecialistComment on above:Performed By: #### CBCAD, CMP, VITD, TSH reflex FT4, LIPD #### [facility] [address] [place], [place] [id number] [Moles/Vol]143 mmol/FJywzwn063-325Ifcshxnh [facility] SpecialistComment on above:Performed By: #### CBCAD, CMP, VITD, TSH reflex FT4, LIPD #### [facility] [address] [place], [place] [id number] nitrogen [Mass/Vol]12 mg/dLNormal7-25NoC[facility] Clinic [facility] SpecialistComment on above:Performed By: #### CBCAD, CMP, VITD, TSH reflex FT4, LIPD #### [facility] [address] [place], [place] [id number] Panelon [id number] [Mass/Vol]135 mg/dLNormal 125-200NoC[facility] Clinic [facility] SpecialistComment on above:Result Comment: Low risk < 200mg/dL Borderline risk 201-239 mg/dl High risk > or equal to 240Performed By: #### CBCAD, CMP, VITD, TSH reflex FT4, LIPD #### [facility] [address] [place], [place] [id number] in HDL [Mass/Vol]44 mg/dLNormal>40NoC[facility] Clinic [facility] SpecialistComment on above:Result Comment: High Cardiovascular Risk HDL <40 mg/dL Low Cardiovascular Risk HDL > or equal to 60 mg/dlPerformed By: #### CBCAD, CMP, VITD, TSH reflex FT4, LIPD #### [facility] [address] [place], [place] [id number] in LDL [Mass/Vol]65 mg/dLNoPremier Health [facility] SpecialistComment on above:Result Comment: LDL ATP III CLASSIFICATION LDL less than 100 mg/dl Optimal LDL 100-129 mg/dl Near or above optimal LDL 130-159 Borderline high LDL 160-189 High LDL greater than 189 mg/dl Very HighPerformed By: #### CBCAD, CMP, VITD, TSH reflex FT4, LIPD #### [facility] [address] [place], [place] [id number] in VLDL [Mass/Vol]26 mg/dLNoPremier Health [facility] SpecialistComment on above:Performed By: #### CBCAD, CMP, VITD, TSH reflex FT4, LIPD #### [facility] [address] [place], [place] [id number].total/Cholesterol in HDL [Mass ratio]3 {ratio} NormalUc Health SpecialistComment on above:Performed By: #### CBCAD, CMP, VITD, TSH reflex FT4, LIPD #### [facility] [address] [place], [place] [id number] [Mass/Vol]130 mg/vOWcpbdr72-318Wlicuhjj [facility] SpecialistComment on above:Result Comment: TRIG ATPIII CLASSIFICATIONS TRIG less than 150 mg/dl Normal TRIG 150-199 mg/dl Borderline High TRIG 200-500 mg/dl High TRIG greather than 500 mg/dl Very HighPerformed By: #### CBCAD, CMP, VITD, TSH reflex FT4, LIPD #### [facility] [address] [place], [place] [id number] SCREEN (MEDICARE)on 48-02-2504VHLR5.983 ng/mLNormal<4.000 [facility] SpecialistComment on above:Result Comment: PSA Test Method: ECLIA/Mick e 601Performed By: #### PSA MC #### [facility] [address] [place], [place] [id number] w/ Reflex to Free T4on 52-07-6268QBU6.150 uIU/mLNormal 0.400-4.500[facility]n [facility] SpecialistComment on above:Performed By: #### CBCAD, CMP, VITD, TSH reflex FT4, LIPD #### [facility] [address] [place], [place] [id number] D 25-OHon 55-96-0407YFT D 25 OH32 ng/mlNormal>29 [facility] SpecialistComment on above:Result Comment: Vitamin D Status Deficiency <20 ng/mL Insufficiency 20-29 ng/mL Optimal 30-100 ng/mL Possible Toxicity >=150 ng/mLPerformed By: #### CBCAD, CMP, VITD, TSH reflex FT4, LIPD #### [facility] [address] [place], [place] [id number]-65 PCR ([facility])on 58-85-0406RXDA-CoV-2 (COVID-19) RNA GÓMEZ+probe Ql (Unsp spec)Not detectedNormalNOT DETECTEDThe [facility] Comment on above:Result Comment: This test is not yet approved or cleared by the [place] FDA. When there are no FDA-approved or cleared tests available, and other criteria are met, FDA can make tests available under an emergency access mechanism called an Emergency Use Authorization (EUA). The EUA for this test is supported by the [place] of Health and Human Service's (HHS's) [...] with SARS-CoV-2.Performed By: #### FETIBC, FERR #### [facility] [address] [address] [address] Natalya ArthurCBC AUTO DIFFon 80-84-7419JLDY #0.0 103/ulNormal0.0-0.1The [facility] Health CenterComment on above:Performed By: #### CBC #### [facility] [address] [place] [address] Dr. Natalya ArthurBasophils/100 WBC (Bld)0.3 %Normal0.2-2.0The [facility] Comment on above:Performed By: #### CBC #### [facility] [address] [place] [address] Dr. Natalya Gilliam #0.0 103/ulNormal0.0-0.7The [facility] CenterComment on above: Performed By: #### CBC #### [facility] [address] [place] [address] Dr. Natalya Pearsonosinophils/100 WBC (Bld)0.1 %Critically low0.9-7.0The [facility] CenterComment on above:Performed By: #### CBC #### [facility] [address] [place] [address] Dr. Natalya Pearsonrythrocyte distribution width (RBC) [Ratio]13.2 %Spilko44.0-15.0 The [facility] Health CenterComment on above:Performed By: #### CBC #### [facility] [address] [place] [address] Dr. Natalya ArthurHematocrit (Bld) [Volume fraction]46.5 %Uumbji06.0-54.0The [facility] CenterComment on above:Performed By: #### CBC #### [facility] [address] [place] [address] Dr. Natalya ArthurHemoglobin (Bld) [Mass/Vol]15.2 g/mXKthhlw36.0-18.0The [facility] CenterComment on above:Performed By: #### CBC #### [facility] [address] [place] [address] Dr. Natalya Thompson #0.04 10e3/ulCritically high0.00-0.03The [facility] Comment on above:Performed By: #### CBC #### [facility] [address] [address] [address] Natalya Thompson %0.3 %Normal0.0-0.5The [facility] CenterComment on above: Performed By: #### CBC #### [facility] [address] [address] [address] Natalya Rivera #1.2 103/ulNormal1.2-3.8The [facility] CenterComment on above:Performed By: #### CBC #### [facility] [address] [address] [address] Natalya Sanchezhocytes/100 WBC (Bld)10.3 %Critically low20.5-60.0The [facility] CenterComment on above:Performed By: #### CBC #### [facility] [address] [place] [address] Dr. Natalya ReisUAL DIFF REQNONormalThe [facility] CenterComment on above: Performed By: #### CBC #### [facility] [address] [place] [address] Dr. Natalya Kendall (RBC) [Entitic mass]31.0 btLmueso20.9-34.0The [facility] CenterComment on above:Performed By: #### CBC #### [facility] [address] [place] [address] Dr. Natalya Kendall (RBC) [Mass/Vol]32.7 g/fCZxqodk66.9-35.2The [facility] CenterComment on above:Performed By: #### CBC #### [facility] [address] [place] [address] Dr. Natalya Kendall (RBC) [Entitic vol]94.9 fLCritically high80.0-94.0The [facility] CenterComment on above:Performed By: #### CBC #### [facility] [address] [place] [address] Dr. Natalya Burks #1.1 103/ulCritically high0.3-0.8The [facility] Comment on above:Performed By: #### CBC #### [facility] [address] [address] [address] Natalya Luzocytes/100 WBC (Bld)9.2 %Normal1.7-12.0The [facility] Comment on above:Performed By: #### CBC #### [facility] [address] [address] [address] Natalya VillelaUT #9.6 103/ulCritically high1.4-6.5The [facility] Comment on above:Performed By: #### CBC #### [facility] [address] [place] [address] Dr. Natalya Villelautrophils/100 WBC (Bld)79.8 %Critically high43.0-75.0The [facility] CenterComment on above:Performed By: #### CBC #### [facility] [address] [place] [address] Dr. Natalya ArthurPlatelet mean volume (Bld) [Entitic vol]10.3 fLNormal9.5-13.5The [facility] CenterComment on above:Performed By: #### CBC #### [facility] [address] [place] [address] Dr. Natalya ArthurPLT126 103/ulCritically bzp526-670Dxn [facility] CenterComment on above:Performed By: #### CBC #### [facility] [address] [place] [address] Dr. Natalya ArthurRBC4.90 106/ulNormal4.70-6.10The [facility] CenterComment on above:Performed By: #### CBC #### [facility] [address] [place] [address] Dr. Natalya ArthurWBC12.1 103/ulCritically high4.0-11.0The [facility] CenterComment on above:Performed By: #### CBC #### [facility] [address] [place] [address] Dr. Hoang ChangER URINE PROFILEon 05-21-5113Iozhvvnbi Ql (U)NegativeNormal NEGATIVEThe [facility] CenterComment on above:Performed By: #### HARLEY UMICRO #### [facility] [address] [address] [address] Natalya Handyarity (U)CLEARNormalCLEARAultman Orrville HospitalComment on above: Performed By: #### HARLEY UMICRO #### [facility] [address] [address] [address] Natalya Singh (U)YELLOWNormalYELLOWAultman Orrville HospitalComment on above: Performed By: #### HARLEY UMICRO #### [facility] [address] [address] [address] Natalya Fitzgerald micrscopic examination will be performed if indicated. NormalAultman Orrville HospitalComselect specialty hospital-[facility] on above:Performed By: #### HARLEY UMICRO #### [facility] [address] [address] [address] Natalya ArthurGlucose Ql (U)NegativeNormalNEGATIVEAultman Orrville HospitalComselect specialty hospital[facility] on above:Performed By: #### HARLEY UMICRO #### [facility] [address] [address] [address] Natalya ArthurHemoglobin Ql (U)LARGEAbnormalNEGATIVEAultman Orrville Hospital Comment on above:Performed By: #### HARLEY UMICRO #### [facility] [address] [place] [address] Dr. Natalya ArthurKetones Ql (U)NegativeNormalNEGATIVEAultman Orrville HospitalComment on above:Performed By: #### HARLEY UMICRO #### [facility] [address] [place] [address] Dr. Natalya ArthruLEUKOCYTESNegativeNormalNEGATIVEAultman Orrville HospitalComselect specialty hospital[facility] on above:Performed By: #### HARLEY UMICRO #### [facility] [address] [address] [address] Natalya ArthurNitrite Ql (U)NegativeNormalNEGATIVEAultman Orrville HospitalComment on above:Performed By: #### HARLEY UMICRO #### [facility] [address] [place] [address] Dr. Natalya ArthurpH (U)6.0 [pH]Normal5-9The [facility] CenterComment on above: Performed By: #### MICK SOUZA #### [facility] [address] [place] [address] Dr. Natalya ArthurProtein (U) [Mass/Vol]100 mg/dLAbnormalNEGATIVE/ TRACEThe [facility] CenterComment on above:Performed By: #### MICK SOUZA #### [facility] [address] [place] [address] Dr. Natalya ArthurSPEC GRAVITY>=1.055Emrsnjeu1.005-<=1.025The [facility] Comment on above:Performed By: #### MICK SOUZA #### [facility] [address] [place] [address] Dr. Natalya ArthurUR MICRO INDINDICATEDNormalThe [facility] CenterComment on above: Performed By: #### MICK SOUZA #### [facility] [address] [place] [address] Dr. Natalya Cristinabilinogen Qn (U)0.2 {Vonnie'U}/dLNormal0.2 - 1.0The [facility] CenterComment on above:Performed By: #### MICK SOUZA #### [facility] [address] [place] [address] Dr. Natalya ArthurLACTATE/LACTIC ACIDon 66-84-6567Esxpilr [Moles/Vol]1.7 mmol/L Normal0.7-2.0The [facility] CenterComment on above:Performed By: #### CVDTB #### [facility] [address] [place] [address] Dr. Natalya ArthurLIPASEon 97-03-5057Zmmonx [Catalytic activity/Vol]143.0 U/LNormal 23.0-300.0The [facility] CenterComment on above:Performed By: #### ANTWAN #### [facility] [address] [place] [address] DrKita ToledoF 14(COMP METB)on 66-48-0217Geehwog [Mass/Vol]3.6 g/dLNormal 3.5-5.0The [facility] CenterComment on above:Performed By: #### CVDTBH #### [facility] [address] [address] [address] Natalya ArthurAlbumin/Globulin [Mass ratio]0.8 {ratio}NormalThe [facility] CenterComment on above:Performed By: #### CVDTBH #### [facility] [address] [address] [address] Natalya RamirezP [Catalytic activity/Vol]108 U/QZrncta90-162Bfj [facility] CenterComment on above:Performed By: #### CVDTBH #### [facility] [address] [place] [address] Dr. Natalya RamirezT [Catalytic activity/Vol]65 U/FBslbxh81-55Yje [facility] CenterComment on above:Performed By: #### CVDTBH #### [facility] [address] [address] [address] Natalya Petersen gap [Moles/Vol]13.9 mmol/LNormalThe [facility] Comment on above:Performed By: #### CVDTBH #### [facility] [address] [place] [address] Dr. Natalya ArthurAST [Catalytic activity/Vol]42 U/NEskjaa95-26Nzr [facility] CenterComment on above:Performed By: #### CVDTBH #### [facility] [address] [address] [address] Natalya ArthurBilirubin [Mass/Vol]1.0 mg/dLNormal0.2-1.3The [facility] Comment on above:Performed By: #### CVDTBH #### [facility] [address] [address] [address] Natalya ArthurCalcium [Mass/Vol]9.7 mg/dLNormal8.4-10.2The [facility] Comment on above:Performed By: #### CVDTBH #### [facility] [address] [address] [address] Natalya ArthurChloride [Moles/Vol]100 mmol/QTphdej28-193Kkn [facility] Comment on above:Performed By: #### CVDTBH #### [facility] [address] [address] [address] Natalya ArthurCO2 [Moles/Vol]28.2 mmol/MJljepy01.0-30.0The [facility] Comment on above:Performed By: #### CVDTBH #### [facility] [address] [address] [address] Natalya ArthurCreatinine [Mass/Vol]1.18 mg/dLNormal0.66-1.25The [facility] CenterComment on above:Performed By: #### CVDTBH #### [facility] [address] [address] [address] Hoang ChangEGFR-AF MEXICAN>60Normal>=60The [facility] CenterComment on above:Performed By: #### CVDTBH #### [facility] [address] [address] [address] Natalya PearsonGFR-NON AF MEXICAN=60Normal>=60The [facility] CenterComment on above:Performed By: #### CVDTBH #### [facility] [address] [address] [address] Natalya ArthurGlobulin (S) [Mass/Vol]4.5 g/dLNormalThe [facility] CenterComment on above:Performed By: #### CVDTBH #### [facility] [address] [address] [address] Natalya ArthurGlucose [Mass/Vol]121 mg/dLCritically wgre28-060Lez [facility] CenterComment on above:Performed By: #### CVDTBH #### [facility] [address] [address] [address] Natalya ArthurPotassium [Moles/Vol]4.1 mmol/LNormal3.4-5.0The [facility] Comment on above:Performed By: #### CVDTBH #### [facility] [address] [address] [address] Natalya ArthurProtein [Mass/Vol]8.1 g/dLNormal6.1-8.2The [facility] Comment on above:Performed By: #### CVDTBH #### [facility] [address] [address] [address] Natalya ArthurSodium [Moles/Vol]138 mmol/MYmmexl192-490Iwp [facility] Comment on above:Performed By: #### CVDTBH #### [facility] [address] [address] [address] Natalya ArthurUrea nitrogen [Mass/Vol]17.0 mg/dLNormal9.0-20.0The [facility] CenterComment on above:Performed By: #### CVDTBH #### [facility] [address] [place] [address] nitrogen/Creatinine [Mass ratio]14.4 mg/mgNoOhio Valley HospitalComment on above:Performed By: #### CVDTBH #### [facility] [address] [place] [address] Dr. Natalya Dallas, HIGH SENSITIVITYon 44-60-2895TKQMAF92.0 pg/mLCritically high4.0-42.2The [facility] CenterComment on above:Result Comment: CUT-OFF POINTS HAVE BEEN ESTABLISHED BASED ON THE FOURTH UNIVERSAL DEFINITIONS OF MYOCARDIAL INFARCTION. THE UPPER REFERENCE LIMIT (URL) OF TROPONIN, DEFINED THE 99TH PERCENTILE OF cTnI DISTRIBUTION IN A REFERENCE POPULATION, HAS BEEN CONFIRMED THE DECISION THRESHOLD FOR [place] DIAGNOSIS.Performed By: #### CVDTBH #### [facility] [address] [place] [address] Dr. Natalya Kemp MICROSCOPIC ONLYon 69-68-7677KINYLDSCL CRYSTALSFEWUniversity Hospitals Lake West Medical CenterComment on above:Performed By: #### MICK SOUZA #### [facility] [address] [place] [address] Dr. Natalya LiuCTERIATRACEAbnoalNONE SEENThe [facility] CenterComment on above:Performed By: #### ERUR, UMICRO #### [facility] [address] [address] [address] Natalya Barnard identified Cx Nom (U)NOT INDICATEDNormalThRegency Hospital CompanyComment on above:Performed By: #### ERUR, UMICRO #### [facility] [address] [address] [address] Natalya Zavaleta SEENNormalNONE SEENAultman Orrville HospitalComselect specialty hospital-[facility] on above:Performed By: #### ERUR, UMICRO #### [facility] [address] [address] [address] Natalya Lealystals LM Nom (Urine sed)SEENAbnormalNONE SEENPremier Health on above:Performed By: #### HARLEY, UMICRO #### [facility] [address] [place] [address] Dr. Hoang ChangEpithelial cells LM Ql (Urine sed)FEWAbnormalNONE SEEN /RAREThe [facility] CenterComselect specialty hospital-[facility] on above:Performed By: #### HARLEY UMICRO #### [facility] [address] [place] [address] Dr. Natalya RedmanLARGEAbnormalNONE SEENAultman Orrville HospitalComselect specialty hospital-[facility] on above:Performed By: #### HARLEY UMICRO #### [facility] [address] [address] [address] Natalya ArthurGhpdzYDY15-04Hdjothtg8-8Jue [facility] CenterComselect specialty hospital-[facility] on above: Performed By: #### ERUMaribel, UMICRO #### [facility] [address] [place] [address] Dr. Natalya ArthurWBC0-2AbnormalNONE SEENPremier Health on above: Performed By: #### ERUR, UMICRO #### [facility] [address] [place] [address] Dr. Natalya Fitzgerald SINGLE QUAD RT UPPERon [id number] SINGLE QUAD RT UPPER EXAMINATION: US SINGLE [...] Electronically authenticated by: STEPHEN ARBOLEDA Date: 2021-02-03 19:08[facility] CenterXR CHEST 1 Von [id number] CHEST 1 VEXAMINATION: XR CHEST 1 V [...] Electronically authenticated by: STEPHEN ARBOLEDA Date: 2021-02-03 19:22[facility] Medical CenterCardiovascular Lab Reporton [id number] Lab Report [facility] Patient Name: [facility] Pankaj MR #: [id number] Department of Physician: Artis Horner M.D. Division of Service Date: 10/30/2018 Cardiology Birthdate: 1945 Adult Cardiovascular Room #: [place] [address] Cardiovascular Laboratory Report CLINICAL PRESENTATION: Pankaj Payne is a 73-year-old male with past medical history significant for CAD, status post prior PCI of the left circumflex coronary artery in 02/2018; hypertension; hyperlipidemia; hypothyroidism. The patient was evaluated by Dr. Tenorio in the [facility] [place] office. He reports worsening fatigue that was [...] noted. 4. Outpatient followup with Dr. Tenorio, [facility]. PROCEDURES: Coronary angiogram, left heart catheterization, [...] infiltrated over the right radial artery. A 6-Belarusian Terumo Glidesheath slender was placed in the right radial artery. The radial anti-vasospasm cocktail of verapamil 2.5 mg and nitroglycerin 200 mcg was administered through the sheath. All catheter exchanges were made over the [place] guidewire. Initially, a 5-Belarusian Outing catheter was used to engage the coronary arteries. The Outing catheter engaged the right coronary artery, but did not engage the left main coronary artery well. I then exchanged over wire to a 6-[place]ian JL3.5 catheter which engaged the left main coronary artery. Coronary angiogram was performed in multiple orthogonal views using hand injection of contrast. At this point, it was apparent that the right PDA had intermediate stenosis, I elected to proceed with IFR evaluation. The [place] Verrata wire was zeroed outside of the body and then normalized at the catheter guide tip. Heparin anticoagulation was used for this procedure and the ACT was maintained greater than 200 seconds. The [place] Verrata wire was then manipulated to the [...] Schafer M.D. Date Trans: 10/31/2018 05:07 Rishabh/katelin DN_[id number] cc: Frantz Conley M.D. [address] [id number] Frantz Tenorio M.D. [address] [id number] Medical CenterOperative Reporton [id number] ReportDate of Surgery: 02/25/2018SURGEON: Hardeep Fraga D.O.PREOPERATIVE [...] a clear corneal incision was [facility] at [facility] oclocklimbus. A cystotome was fashioned out of [...] day for postoperative care.Hardeep Fraga D.O.glsDictated: 02/25/2018 #[id number]: 02/25/2018 #[id number]: Hadreep Fraga D.O.[facility] HospitalComment on above:Result Comment: Electronically Signed By: Hardeep Fraga DO\.br\Date and Time Signed: 03/03/18 12:57 EST Cardiovascular Lab Reporton [id number] Lab ReportUnSumma Health [facility] #: [id number] Department of Physician: Artis Pinedo M.D. Division of Service Date: 02/28/2018 Cardiology Birthdate: 1945 Adult Cardiovascular Room #: [id number] [place] [address] Cardiovascular Laboratory Report FINAL IMPRESSION: 1. Successful [...] fashion. Using a modified Seldinger technique, a 5-Belarusian micropuncture was placed in right internal jugular vein. This was upsized to a regular 6-Belarusian sheath. Then, a 6-[place]ian Trinh was used for right heart catheterization. The right heart catheterization was performed. Access of the right radial artery under ultrasound guidance and in the right ulnar artery under ultrasound guidance a 6-Belarusian sheath was placed and then used a 6-Belarusian JL3.5 and JR5 catheter for coronary angiography. After baseline angiography was performed, the case was discussed by his referring filter worker, Dr. Tenorio, as well as with the patient's family. Also given multiple lesions in right , circumflex coronary artery and a distal LAD lesion, we also discussed CABG as an option. 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 We decided to treat circumflex. 6-Belarusian XB 3.0 guide was used to engage the left main coronary ostium. A 0.014 [place] wire was passed across the proximal circumflex into the 1st obtuse marginal branch. Predilatation was performed using a 2.5 x 15 balloon. Then, we deployed a 2.5 x 16 Synergy stent. This was post-dilated with a 2.75 x 15 noncompliant at 24 atmospheres. Final angiography showed good stent result in the proximal circumflex into the 1st obtuse marginal branch. The ugashik circumflex stayed open. There were no complications. [...] P/Gage Barahona M.D. Date Trans: 03/01/2018 03:16 David DN_JN:[id number] cc: JYOTI Villalobos [address] [place] [address] Frantz Conley M.D. [address] [address] Frantz Tenorio M.D. [address] [id number] [facility] Ahuja Medical CenterHistory and Physicalon 33-95-2359Ctgrvrq and PhysicalMR#: [id number] [facility] Pt. Name: Pankaj Payne Admitted: 02/28/2018 Date [...] Lopez M.D. Date Trans: 02/28/2018 04:44 P/katelin DN_JN:[id number] Hospitals Ahuja Medical CenterCoding Summary. on 96-70-5321Jsmyzd Summary.CODING DATE: 02/26/2018 FINAL [facility] STATUS: Home (Routine DC) PAYOR: Medicare APC DESCRIPTION 5491 Level 1 Intraocular Procedures ADMIT DX: REASON FOR VISIT DX: H25.11 Age-related nuclear cataract, right eye FINAL DX: PRINCIPAL: H25.11 Age-related nuclear cataract, right eye SECONDARY: H25.041 Posterior subcapsular polar age-related cataract, right eye E03.9 Hypothyroidism, unspecified PYMT PROC APC STAT DESCRIPTION DOCTOR NAME DATE 33139 5491 J1 Extracapsular cataract Hardeep Fraga DO [...] By: Lashae Caldwell Date Saved: 02/26/2018 04:03 [facility]NSelect [facility]Main [facility] Intraoperative Recordon [id number] OR Intraoperative RecordIntraOp Document Type FT Summary Primary Physician: Hardeep Fraga DO Finalized Date/Time: 02/26/18 14:08:09 Pt. Name: PANKAJ PAYNE/Sex: 1945 Male Med Rec #: [id number] Physician: Hardeep Fraga DO Financial #: [id number] Pt. Type: A Room/Bed: [place] [address] Admit/Disch: 02/25/18 08:23:00 - 02/25/18 12:00:00 Institution: Case Times FT Entry 1 Patient Times In Room 02/25/18 11:00:00 Out Room 02/25/18 11:18:00 Procedure Times Start 02/25/18 11:05:00 Stop 02/25/18 11:16:00 Anesthesia Times Last Modified By: Elayne Agosto CST 02/25/18 11:17:41 General Comments: 02/26/18 Chart opened to review and send charges Estela Agosto CST Case Attendance FT Entry 1 Entry2 Entry 3 Case Attendee Rosie JEAN, Hardeep Moreno RN, Arnold ALEGRIAN, RN, Sussy Role Performed Surgeon - Primary Vice President Underwriting - Primary Vice President Underwriting - Primary Time In 02/25/18 11:00:00 02/25/1811:00:00 02/25/18 11:00:00 Time Out 02/25/18 11:18:00 02/25/18 11:18:00 02/25/18 11:18:00 ProcedureCATARACT EXTRACTION W/ CATARACT EXTRACTION W/ CATARACT EXTRACTION W/ INTRAOCULAR LENS(Right) INTRAOC ULAR LENS(Right) INTRAOCULAR LENS(Right) Comments Last Modified By: Tiffanie DAMON, Arnold Moreno RN, Arnold Moreno RN, Arnold Morton 02/25/18 11:17:52 02/25/18 11:17:52 02/25/18 11:17:52 Entry 4 Entry 5 Case Attendee Zoila Mzt CST, CST, Jeannine López Role Performed Scrub [...] Moreno RN, Weisenburger BSN, RN, Smith Hi DIETARY SERVER, Nessa Bhardwaj CST, Jeannine López Time Out [...] tissue Entry 1 Skin Integrity Warm, Dry, Weeping Water, Unable Outcomes Met? Yes to Visualize Last [...] RN Patient Status Stable Skin. Condition Warm, Weeping Water, Dry Airway Maintenance Oxygen in Use? No [...] safely administered during the perioperative period For Zhang-Madison please see scanned medication reconcilliation form for medications used at the field during the procedure. 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 Yes Last Modified By: Arnold Moreno RN 02/25/18 11:08:01 Post-Care Text: The patient isfree from signs and symptoms of injury caused by extraneous objects Case Comments Finalized By: Elayne Dave CST Document Signatures Signed By: Arnold Moreno RN 02/25/18 11:18 Elayne Agosto CST 02/26/18 14:08[facility] HospitalHistory and Physicalon 80-10-6470Kiebnsj and PhysicalHOSPITAL REGULATIONS: ALL Positive Important Negative [...] so in the near future.Viola CabreraaekDictated: 02/24/2018 #[id number] 02/25/2018 #[id number]: Hardeep Fraga D.O.[facility] HospitalComment on above:Result Comment: Electronically Signed By: Hardeep Fraga DO\.br\Date and Time Signed: 02/25/18 10:24 ESTInpatient Patient Summaryon 19-63-3722Pbjyctaaf Patient SummaryWright-Patterson Medical CenterClinical Discharge InstructionsPERSON INFORMATION Name: PANKAJ PAYNE PHYSICIANS Admitting Physician: Hardeep Fraga DOAttending Physician: Hardeep Fraga DO PCP: FRANTZ CONLEY MD BDischarge Diagnosis: Cataract Comment: PATIENT EDUCATION INFORMATIONInstructions:Medication Leaflets:Follow up:With: Address: When: Hardeep Fraga [facility] [address] [place] [address], [place] [address] [phone] Business (1) Within 1 to 2 days MEDICATION LISTComment:[facility] HospitalMain OR PACU II Recordon 09-86-7816Hicz OR PACU II Record PACU Phase II Document Type FT Summary Primary Physician: Hardeep Fraga DO Finalized Date/Time: 02/25/18 12:33:41 Pt. Name: PANKAJ PAYNE D.O.B./Sex: 1945 Male Med Rec #: [id number] Physician: Hardeep Fraga DO Financial #: [id number] Pt. Type: A Room/Bed: [facility] Admit/Disch: 02/25/18 08:23:55 - Institution: Case [...] Signatures Signed By: Lissa Pope RN 02/25/18 12:33NoTrinity Health System West CampusMain OR Preoperative Recordon 41-70-9758Kttv OR Preoperative RecordPreOp Document Type FT Summary Primary Physician: Hardeep Fraga DO Finalized Date/Time: 02/25/18 11:05:22 Pt. Name: PANKAJ PAYNE A /Sex: 1945 Male Med Rec #: [id number] Physician: Hardeep Fraga DO Financial #: [id number] Pt. Type: A Room/Bed: [place] [address] Admit/Disch: 02/25/18 08:23:55 - Institution: Case Times [...] Signatures Signed By: Arnold Moreno RN 02/25/18 11:05[facility] HospitalMain OR Preoperative RecordHolding Area Document Type FT Summary Primary Physician: Hardeep Fraga DO Finalized Date/Time: 02/25/18 08:46:23 Pt. Name: PANKAJ PAYNE/Sex: 1945 Male Med Rec #: [id number] Physician: Hardeep Fraga DO Financial #: [id number] Pt. Type: A Room/Bed: [place] [address] Admit/Disch: 02/25/18 08:23:55 - Institution: Case Times [...] Signatures Signed By: Lissa Pope RN 02/25/18 08:46NoTrinity Health System West CampusPatient Education - Texton 02-25-2018 [facility] - [facility]Progress Note-Physician on 15-83-9670Gxeqxqn mass concPatient: PANKAJ PAYNE Age: 72 years Sex: Male : 1945 Associated Diagnoses: None Author: Hardeep Fraga DO Postoperative Information Date/ Time: 02/25/18 11 :17:00 Preoperative Diagnosis: Senile Cataract - OD . Postoperative Diagnosis: same . Procedure: Cataract Extraction with IOL placement - OD. Anesthesia Method: Local. Performed by: Hardeep Fraga DO. Specimens Removed: none . Estimated Blood Loss: 0 ml. Complications: None.[facility] HospitalComment on above:Result Comment: Electronically Signed By: Hardeep Fraga DO\.br\Date and Time Signed: 02/25/18 11:17 ESTOperative Reporton [id number] ReportDate of Surgery: 02/11/2018SURGEON: Hardeep Fraga D.O.PREOPERATIVE [...] day for postoperative care.Hardeep Fraga D.O.lkrDictated: 02/11/2018 #[id number]: 02/12/2018 #[id number]: JonathanD. Rosie D.O.[facility]leness HospitalComment on above:Result Comment: Electronically Signed By: Hardeep Fraga DO\.br\Date and Time Signed: 02/17/18 08:38 EST Coding Summary.on 51-27-4220Iwryjs Summary.CODING DATE: 02/12/2018 [facility] STATUS: Home (Routine DC) PAYOR: Medicare APC DESCRIPTION 5491 Level 1 Intraocular Procedures ADMIT DX: REASON FOR VISIT DX: H25.13 Age-related nuclear cataract, bilateral FINAL DX: PRINCIPAL: H25.13 Age- related nuclear cataract, bilateral SECONDARY: H25.043 Posterior subcapsular polar age-related cataract, bilateral E03.9 Hypothyroidism, unspecified PYMT PROC APC STAT DESCRIPTION DOCTOR NAME DATE 5490 J1 Extracapsular cataract Hardeep Fraga DO 02/11/2018 [...] Celeste Abbasi Revised Date Saved: 02/12/2018 11:05 [facility] Preoperative Recordon 13-65-2015Pxzm OR Preoperative RecordHolding Area Document Type FT Summary Primary Physician: [place] [id number] Finalized Date/Time: 02/12/18 07:26:59 Pt. Name: PANKAJ PAYNE/Sex: 1945 Male Med Rec #: [id number] Physician: Hardeep Fraga DO Financial #: [id number] Pt. Type: A Room/Bed: [place] [address] Admit/Disch: 02/11/18 08:31:00 - 02/11/18 12:00:00 Institution: [...] Last Modified By: Be DAMON, BSN, Monika Lóepz 02/11/18 08:50:03 Finalized By: HEMANT Macdonald RN, Andrea Document Signatures Signed By: HEMANT Macdonald RN, Andrea 02/12/18 07:26[facility] HospitalHistory and Physicalon 98-38-7799Pohslqv and PhysicalHOSPITAL REGULATIONS: ALL Positive Important Negative [...] in the near future.Hardeep Fraga D.O.aekDictated: 02/10/2018 #[id number] 02/11/2018 #[id number]: Hardeep Fraga D.O.[facility] HospitalComment on above:Result Comment: Electronically Signed By: Hardeep Fraga DO\.br\Date and Time Signed: 02/11/18 08:10 ESTInpatient Patient Summaryon 62-73-4021Wxejihwhp Patient SummaryWright-Patterson Medical CenterClinical Discharge InstructionsPERSON INFORMATION Name: PANKAJ PAYNE PHYSICIANS Admitting Physician: Hardeep Fraga DOAttending Physician: Hardeep Fraga DO PCP: FRANTZ CONLEY MD BDischarge Diagnosis: Cataract Comment: PATIENT EDUCATION INFORMATIONInstructions:ROSIE- After Surgery Eye (Custom)Medication Leaflets:Follow up:With: Address: When: Hardeep Fraga [facility], [address] [facility], [address] [place] [phone] Business (1) Within 1 to 2 days MEDICATION LISTComment:[facility] HospitalMain OR Intraoperative Recordon 63-56-1591Mreg OR Intraoperative RecordIntraOp Document Type FT Summary Primary Physician: Hardeep Fraga DO Finalized Date/Time: 02/11/18 13:09:49 Pt. Name: PAYNEPANKAJ/Sex: 1945 Male Med Rec #: [id number] Physician: Hardeep Fraga DO Financial #: [id number] Pt. Type: A Room/Bed: [address] jarocho/Disch: 02/11/18 08:31:00 - 02/11/18 12:00:00 Institution: [...] Arnold Morton Role Performed Surgeon - Primary Vice President Underwriting - Primary Vice President Underwriting - Primary Time In 02/11/18 11:04:00 02/11/18 11:04:00 02/11/18 11:04:00 Time Out 02/11/18 11:24:00 02/11/18 11:24:00 02/11/18 11:24:00 Procedure CATARACT EXTRACTION W/ CATARACT EXTRACTION W/ CATARACT EXTRACTION W/ INTRAOCULAR LENS(Left) INTRAOCULAR LENS(Left) INTRAOCULAR LENS(Left) Comments Last Modified By: Siddharth RN, Rosanna Messina RN, Rosanna Vanegas RN 02/11/18 11:24:31 02/11/18 11:24:31 02/11/18 11:24:31 Entry 4 Entry 5 Case Attendee Mayo ARZOLA, Marisela Marcnao DIETARY SERVER/Nusrat ZAMORA Role Performed Scrub - Primary Scrub - Other Time In 02/11/18 11:04:00 02/11/18 11:04:00 Time Out 02/11/18 11:24:00 02/11/18 11:24:00 Procedure CATARACT EXTRACTIONW/ CATARACT EXTRACTION W/ INTRAOCULAR LENS(Left) INTRAOCULAR LENS(Left) Comments Last Modified By: Rosanna Mack RN, RN, Karen M 02/11/18 11:24:31 02/11/18 11:24:31 Perioperative Protocols FTPre-Care [...] DAMON, Rosanna Morton, Tiffanie DAMON, Krys Mar DIETARY SERVER/Nusrat ZAMORA Ott CST, Marisela Rodriguez Time Out Complete 02/11/18 [...] safely administered during the perioperative period For Rolanda please see scanned medication reconcilliation form for medications used at the field during the procedure. 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 Yes Last Modified By: Rosanna Messina RN 02/11/18 11:19:54 Post-Care Text: The patient is free from signs and symptoms of injury caused by extraneous objects CaseComments Finalized By: Elayne Agosto CST Document Signatures Signed By: Rosanna Messina RN 02/11/18 11:24 Elayne Agosto CST 02/11/18 13:09NoTrinity Health [facility] West CampusMain OR PACU II Recordon [id number] OR PACU II RecordPACU Phase II Document Type FT Summary Primary Physician: Hardeep Fraga DO Finalized Date/Time: 02/11/18 12:09:46 Pt. Name: PANKAJ PAYNE/Sex: 1945 Male Med Rec #: [id number] Physician: Hardeep Fraga DO Financial #: [id number] Pt. Type: A Room/Bed: AS18/01 Admit/Disch: 02/11/18 08:31:00 - Institution: Case Times [...] Signatures Signed By: Lisa Rubi RN 02/11/18 12:09[facility] HospitalPatient Education - Texton 02-11-2018 Patient Education - TextMercy Health Kings Mills HospitalProgress Note-Physician on 53-01-2568Ayidijz mass concPatient: PANKAJ PAYNE Age: 72 years Sex: Male : 1945 Associated Diagnoses: None Author: Hardeep Fraga DO Postoperative Information Date/ Time: 02/11/18 11 :23:00 Preoperative Diagnosis: Senile Cataract - OS. Postoperative Diagnosis: same . Procedure: Cataract Extraction with IOL placement - OS. Anesthesia Method: Local. Performed by: Hardeep Fraga DO. Specimens Removed: none . Estimated Blood Loss: 0 ml. Complications: None.[facility] HospitalComment on above:Result Comment: Electronically Signed By: Hardeep Fraga DO\.br\Date and Time Signed: 02/11/18 11:23 EST Vital Signs Date TimeVital SignValuePerforming EsfkmsuuuRnkcothg21-43-5644 10:59-0500Body .1 cmWisissy Tomas JEAN Work Phone: [facility]11-05-2025 10:59-0500 Body mass index (BMI) [Ratio]31.95 kg/s8Dmwwsedking Marin DO Work Phone: [facility]11-05-2025 10:59-0500 Body uyguua71.09 kgWilllazaro Marin DO Work Phone: [facility]11-05-2025 10:59-0500 Diastolic blood mojitowk53 mm[Hg]Crescencio Marin DO Work Phone: [facility]11-05-2025 10:59-0500 Heart rate66 /minWibradlylazaro Marin DO Work Phone: [facility]11-05-2025 10:59-0500 Systolic blood rvjyhgzx054 mm[Hg]Crescencio Marin DO Work Phone: [facility]10-25-2025 12:00-0400 Body qkqjjdeeekz29.1 [degF]Frantz Conley II Work Phone: [facility]10-25-2025 12:00-0400 Diastolic blood vikczkyo01 mm[Hg]Frantz Conley II Work Phone: 1(500)830-[address] [place], [place] 38[address]10-25-2025 12:00-0400 Heart rate69 /minDmykelel Conley II Work Phone: 1(536)540-[address] [place], [place] 3865910-25-2025 12:00-0400 Respiratory rate17 /minDmykelel Conley II Work Phone: 1(627)795-[address] [place], [place] 3865910-25-2025 12:00-0400 SaO2% (BldA) [Mass fraction]97 %Frantz Conley II Work Phone: 1(949)764-[address] [place], [place] 38[address]10-25-2025 12:00-0400 Systolic blood zyzetwbv985 mm[Hg]Frantz Conley II Work Phone: [phone])[address]10-25-2025 06:00-0400 Body bdetdi15 kgDatalael Conley II Work Phone: 1(127)[address]10-24-2025 12:30-0400 Inhaled oxygen flow rate8 L/Rose Maryel Conley II Work Phone: 1(963)[address]10-24-2025 08:13-0400 Body muqcjs832.1 cmDatalael Conley II Work Phone: 1(112)[address]10-23-2025 13:26-0400 Body .1 cmBuck Barlow WAN SUPPORT SPECIALIST-ASSOCIATE CURATOR Work Phone: [phone])890-[address] [place], [place] 2656310-23-2025 13:26-0400 Body mass index (BMI) [Ratio]30.12 kg/w9TywmiBuck Barlow WAN SUPPORT SPECIALIST-ASSOCIATE CURATOR Work Phone: 1(763)738-[address] [place], [place] 2656310-23-2025 13:26-0400 Body ptrcux24.1 kgBuck Barlow WAN SUPPORT SPECIALIST-ASSOCIATE CURATOR Work Phone: 1(161)454-[address] [place], [place] 2656310-23-2025 13:26-0400 Diastolic blood vtoaqoqh13 mm[Hg]Buck Barlow WAN SUPPORT SPECIALIST-ASSOCIATE CURATOR Work Phone: 1(516)946-[address] [place], [place] 265[address]10-23-2025 13:26-0400 Heart rate47 /Derek Barlow WAN SUPPORT SPECIALIST-ASSOCIATE CURATOR Work Phone: [facility]10-23-2025 13:26-0400 Systolic blood wthzkuzs381 mm[Hg]Buck Barlow WAN SUPPORT SPECIALIST-ASSOCIATE CURATOR Work Phone: [facility]10-16-2025 11:38-0400 Body kdlivr168.4 cmZohaibking Adrian REGISTER OF WILLS Work Phone: 1([phone] [place], [place] [address]Vgsgetojzy47-43-2720 11:38-0400Body mass index (BMI) [Ratio]29.4 kg/m2Salima Gar REGISTER OF WILLS Work Phone: [phone])[address] [place], [place] 7707110-16-2025 11:38-0400Body qgyovy40.38 kgKiking Adrian REGISTER OF WILLS Work Phone: 1(556)997-[address] [place], [place] [address]Qooifpboju97-48-5929 11:38-0400Diastolic blood ogyflaai27 mm[Hg]Salima Gar REGISTER OF WILLS Work Phone: 1(581)615-[address] [place], [place] [address]Uoqfcwgozx95-75-4534 11:38-0400Heart rate49 /min Salima Gar REGISTER OF WILLS Work Phone: 1(461)814-[address] [place], [place] [address]Jrrrfiyilp35-14-2198 11:38-0400Respiratory rate16 /minKiking Gar REGISTER OF WILLS Work Phone: 1(644)495-[address] [place], [place] [address]Vytkeyafwb95-93-3978 11:38-7559JrR7% (BldA) [Mass fraction]100 %Salima Gar REGISTER OF WILLS Work Phone: 1(544)332-[address] [place], [place] [address]Adbsyrasuf26-54-6508 11:38-0400Systolic blood wjtjitai558 mm[Hg]Salima Gar REGISTER OF WILLS Work Phone: 1(742)512-[address] [place], [place] [address]Qrwjeiqana26-38-2969 13:33-0400Body pgcanz338.48 cmDashanae Conley II Work Phone: 1(865)994-[address] [place], [place] 3865908-20-2025 13:33-0400 Body mass index (BMI) [Ratio]32.3 kg/d3Eevaig Conley II Work Phone: 1(909)760-[address] [place], [place] 3865908-20-2025 13:33-0400 Body fhrnam84.28 kgDaniel Conley II Work Phone: [facility]08-20-2025 13:33-0400 Diastolic blood owwxrkit18 mm[Hg]Frantz Conley II Work Phone: [facility]08-20-2025 13:33-0400 Heart rate61 /minDzita Conley II Work Phone: [facility]08-20-2025 13:33-0400 Systolic blood ajtkpuvh628 mm[Hg]Frantz Conley II Work Phone: [facility]07-29-2025 14:31-0400 Body ahagqx895.4 cmRosanna Hemmer PA Work Phone: [facility] ChildrenTajeekpigl41-21-6270 14:31-0400Body mass index (BMI) [Ratio]29.24 kg/f3Ecexc Hemmer PA Work Phone: [facility] ChildrenJpjjzmyywy82-87-6654 14:31-0400Body jpzpuz74.92 kgRalphen Hemmer PA Work Phone: [facility] ChildrenAubmesrmix25-43-8655 14:31-0400Diastolic blood ktqcrovf49 mm[Hg]Rosanna Hemmer PA Work Phone: [facility] ChildrenQercjpsvaz14-83-6758 14:31-0400Heart rate69 /min Rosanna Hemmer PA Work Phone: [phone] ChildrenKduorjiayk75-72-4110 14:31-0400Respiratory rate16 /minRalphen Hemmer PA Work Phone: [facility] ChildrenNnebwyejjk62-68-3648 14:31-1948JjN0% (BldA) [Mass fraction]96 %Rosanna Hemmer PA Work Phone: [facility] ChildrenUnxvrpzcaj53-54-2812 14:31-0400Systolic blood ehpcfxza233 mm[Hg]Rosanna Hemmer PA Work Phone: [facility] ChildrenOsegzscdkv75-97-7457 11:04-0400Body mnjazq467.4 cmFrantz Conley MD Work Phone: 1(419)483-[address] [place], [place] [address]Jiofgnhnsx03-34-7796 11:04-0400Body mass index (BMI) [Ratio]29.66 kg/f4Jemeglshanae Conley MD Work Phone: 1(263)209-[address] [place], [place] [address]Bygkvsgkhj02-79-0116 11:04-0400Body pzkmma66.1 kg Frantz Conley MD Work Phone: 1(603)200-[address] [place], [place] [address]Cwpjkageav78-89-7752 11:04-0400Diastolic blood losrnpsi72 mm[Hg]Frantz Conley MD Work Phone: 1(877)[facility]-[address] [place], [place] [address]Ktigncyfda77-46-3967 11:04-0400Heart rate48 /min Frantz Conley MD Work Phone: 1(139)[facility] [place], [place] [address]Omikxcafjr64-00-4811 11:04-7600NsZ0% (BldA) [Mass fraction]97 %Frantz Conley MD Work Phone: 1(156)[facility]-[address] [place], [place] [address]Gczwncwlhe43-30-8860 11:04-0400Systolic blood heubdzlp980 mm[Hg]Frantz Conley MD Work Phone: [phone])[phone] [place], [place] [address]Uahgcsdsur34-68-1682 14:56-0400Body htzaep469.1 cmWuking LiaoTomas DO Work Phone: [phone]06-17-2025 14:56-0400 Body mass index (BMI) [Ratio]30.29 kg/r8Axadwhs Tomas DO Work Phone: 1(555)871-[address] [place], [place] 265[address]306-17-2025 14:56-0400 Body gjyzwb67.56 kgWibradlylazaro Tomas DO Work Phone: 1(659)893-[address] [place], [place] 2656306-17-2025 14:56-0400 Diastolic blood mgqjysoi95 mm[Hg]Crescencio Marin DO Work Phone: 1(701)253-[address] [place], [place] 2656306-17-2025 14:56-0400 Heart rate58 /minCrescencio Marin DO Work Phone: 1(134)333-[address] [place], [place] 2656306-17-2025 14:56-0400 Systolic blood yqkkrohs172 mm[Hg]Crescencio Marin DO Work Phone: 1(737)017-[address] [place], [place] 2656302-06-2025 13:05-0500 Body .48 cmFrantz Conley II Work Phone: 1(561)513-[address] [place], [place] 3865902-06-2025 13:05-0500 Body mass index (BMI) [Ratio]32 kg/s4NjzxfkFrantz Conley II Work Phone: 1(817)659-[address] [place], [place] 3865902-06-2025 13:05-0500 Body aswnjt64.37 kgFrantz Conley II Work Phone: 1(604)[address]12-19-2024 10:59-0500 Body ssubrj632.4 cmFrantz Conley MD Work Phone: 1(166)[facility] [place], [place] [address]Ueytkrwcfr09-16-6306 10:59-0500Body mass index (BMI) [Ratio]29.17 kg/a3KdikifFrantz Conley MD Work Phone: 1(898)715-[address] [place], [place] [address]Itgunbszah61-73-0084 10:59-0500Body .74 kgFrantz Conley MD Work Phone: 1(236)842-[address] [place], [place] [address]Deywjhjnir42-67-1292 10:59-0500Diastolic blood mm[Hg]Frantz Conley MD Work Phone: 1(371)846-[address] [place], [place] [address]Zbmmldpgfu96-09-5699 10:59-0500Heart rate56 /min Frantz Conley MD Work Phone: [facility] ChildrenPhnqagphmz45-29-8381 10:59-8472UiN6% (BldA) [Mass fraction]98 %Frantz Conley MD Work Phone: [facility] ChildrenHtrxrxkrjs38-31-3626 10:59-0500Systolic blood pecdhopw747 mm[Hg]Frantz Conley MD Work Phone: 1(023)061398[address] [place], [place] [address]Yphzxffgqk37-47-4796 11:24-0400Heart rate52 /min Crescencio Marin DO Work Phone: [facility]10-09-2024 11:16-0400 Body .1 cmCrescencio Marin DO Work Phone: [facility]10-09-2024 11:16-0400 Body mass index (BMI) [Ratio]29.09 kg/f4HhisgrgCrescencio Marin DO Work Phone: [facility]10-09-2024 11:16-0400 Body ymlbrc71.29 kgWisissy Marin DO Work Phone: [facility]10-09-2024 11:16-0400 Diastolic blood jysrkply95 mm[Hg]Crescencio Marin DO Work Phone: [facility]10-09-2024 11:16-0400 Systolic blood wrhusjcl180 mm[Hg]Crescencio Marin DO Work Phone: [facility]07-31-2024 11:17-0400 Diastolic blood clrvquwp32 mm[Hg]II Frantzmagi Conley Work Phone: 1([phone])[address]07-31-2024 11:17-0400 Heart rate70 /NancyI Frantz Jarvis Work Phone: 1(556)[address]07-31-2024 11:17-0400 Respiratory rate18 /Bettye Frantzmagi Conley Work Phone: 1(427)[address]07-31-2024 11:17-0400 SaO2% (BldA) [Mass fraction]98 %II Frantzmagi Conley Work Phone: 1(212)[address]07-31-2024 11:17-0400 Systolic blood mm[Hg]II Frantz Conley Work Phone: 1(586)[address]07-31-2024 09:10-0400 Body .48 cmII Frantz Conley Work Phone: 1(715)[address]07-31-2024 09:10-0400 Body coguvy61.01 kgII Frantz Conley Work Phone: 1(615)[address]06-25-2024 11:02-0400 Body ikboie434.1 cmII Frantz Conley Work Phone: 1(810)[address]06-25-2024 11:02-0400 Body mass index (BMI) [Ratio]28.8 kg/m2II Frantz Jarvis Work Phone: [facility]06-25-2024 11:02-0400 Body xobdpu13.47 kgII Frantz Jarvis Work Phone: [facility]06-25-2024 11:02-0400 Diastolic blood atydlswt58 mm[Hg]II Frantz Jarvis Work Phone: 1(383)539-[address] [place], [place] 1691706-25-2024 11:02-0400 Heart rate53 /minII Frantz Jarvis Work Phone: 1(652)714-[address] [place], [place] 169[address]06-25-2024 11:02-0400 Systolic blood mkgjobrk580 mm[Hg]II Frantz Jarvis Work Phone: [facility]03-28-2024 10:01-0400 Diastolic blood mm[Hg]Crescencio Marin DO Work Phone: 8([phone])533-[address] [place], [place] 2656303-28-2024 10:01-0400 Heart rate63 /minWisissy Marin DO Work Phone: [phone])545-[address] [place], [place] 2656303-28-2024 10:01-0400 Systolic blood mm[Hg]Crescencio Marin DO Work Phone: [phone])889-[address] [place], [place] 2656303-28-2024 10:00-0400 Body rqdadd228.1 cmWisissy Marin DO Work Phone: [phone])554-[address] [place], [place] 2656303-28-2024 10:00-0400 Body mass index (BMI) [Ratio]30.29 kg/n0FclfwfmCrescencio Liaodon DO Work Phone: 6(403)561-[address] [place], [place] 2656303-28-2024 10:00-0400 Body .56 kgWisissy Liaodon DO Work Phone: [phone])929-[address] [place], [place] 2656302-14-2024 10:30-0500 Body aifufb866.4 cmFrantz Conley MD Work Phone: [facility] ChildrenOgkfoxcbzl29-93-2977 10:30-0500Body mass index (BMI) [Ratio]29.66 kg/a2Xjmbdashanae Conley MD Work Phone: [facility] ChildrenBwhmpsnojr98-74-6141 10:30-0500Body vfomcb08.1 kg Frantz Conley MD Work Phone: [facility] ChildrenBmanmayile30-13-8401 10:30-0500Diastolic blood uhciqoga63 mm[Hg]Frantz Conley MD Work Phone: [facility] ChildrenBkumtrnizu27-43-1812 10:30-0500Heart rate52 /min Frantz Conley MD Work Phone: [facility] ChildrenXtyrsclxdi38-94-5303 10:30-0182BwK3% (BldA) [Mass fraction]99 %Frantz Conley MD Work Phone: [facility] ChildrenBmnvuiktvt63-07-9541 10:30-0500Systolic blood ctrfqynu020 mm[Hg]Frantz Conley MD Work Phone: [facility] ChildrenDxavajqyzb64-87-0253 10:27-0400Body temperature 97.8 [degF]II Frantz Conley Work Phone: 1(663)835-[address] [place], [place] 1691707-07-2023 10:27-0400 Body qoejpo81.19 kgII Frantz Conley Work Phone: 1(143)210-[address] [place], [place] 1691707-07-2023 10:27-0400 Diastolic blood sregvupm56 mm[Hg]II Frantz Conley Work Phone: [facility]07-07-2023 10:27-0400 Heart rate39 /minII Frantz Conley Work Phone: 1(901)939-[address] [place], [place] 1691707-07-2023 10:27-0400 Respiratory rate16 /minII Frantz Conley Work Phone: 1(073)838-[address] [place], [place] 1691707-07-2023 10:27-0400 SaO2% (BldA) [Mass fraction]97 %II Frantz Conley Work Phone: [facility]07-07-2023 10:27-0400 Systolic blood ekslyogt389 mm[Hg]II Frantz Conley Work Phone: [facility]06-27-2023 10:00-0400 Body wirvuv563.1 cmCgeno Branch Other [employer] Other 06-27-2023 10:00-0400Body mass index (BMI) [Ratio] 29.12 kg/u2BxokrfhMick Branch Other [employer] Other 06-27-2023 10:00-0400Body .38 kgCamkayla Branch Other [employer] Other 06-27-2023 10:00-0400Diastolic blood weeddygw03 mm[Hg] Mick Branch Other [facility] [employer] Other 06-27-2023 10:00-0400Systolic blood eseptkvs184 mm[Hg] Mick Branch Other [employer] Other 05-17-2023 13:49-0400Body .1 cmII Frantz Conley Work Phone: [facility]06-28-2022 13:10-0400 Diastolic blood jrewmpdu24 mm[Hg]II Frantz Conley Work Phone: [facility]06-28-2022 13:10-0400 Heart rate68 /Bettye Conley Work Phone: [facility]06-28-2022 13:10-0400 Respiratory rate16 /minII Frantz Conley Work Phone: [facility]06-28-2022 13:10-0400 SaO2% (BldA) [Mass fraction]96 %II Frantz Conley Work Phone: [facility]06-28-2022 13:10-0400 Systolic blood jrsboscm052 mm[Hg]II Frantz Conley Work Phone: [facility]06-28-2022 11:54-0400 Body .1 cmII Frantz Conley Work Phone: [facility]06-28-2022 11:54-0400 Body mass index (BMI) [Ratio]29.9 kg/m2II Frantz Conley Work Phone: [facility]06-28-2022 11:54-0400 Body qkuahdtpxcx12.3 [degF]II Frantz Conley Work Phone: [facility]06-28-2022 11:54-0400 Body rhxjua49.64 kgII Frantz Conley Work Phone: [facility]06-22-2022 15:15-0400 Body .1 [facility] [employer].comaram Other [employer] Other 06-22-2022 15:15-0400Body mass index (BMI) [Ratio] 29.95 kg/s1PgjoavqDigital Map Products Other [employer] Other 06-22-2022 15:15-0400Body .65 kgCamSellABandvalerie [employer]Planet Other [employer] Other 05-26-2022 12:00-0400Body fymfwrqrrsx12.01 [degF]Leonard CORREA [employer]05-26-2022 11:15-0400Heart rate69 /minLeonard Johnson MDHAVERHILL PAVILION BEHAVIORAL HEALTH HOSPITALTriton05-26-2022 11:15-0400Respiratory rate19 /min Leonard Johnson MDHAVERHILL PAVILION BEHAVIORAL HEALTH HOSPITALMeterHero [facility] MEDICAL CENTERAlo NetworksGXZEUM04-91-6531 11:15-4571YuK9% (BldA) [Mass fraction]98 %Leonard Johnson MDCLEARSKY [facility] [employer]05-26-2022 10:00-0400 Diastolic blood lumgbpef74 mm[Hg]Leonard Johnson [facility] 08-17-2021 10:00-0400Systolic blood xulfmmhj665 mm[Hg]Leonard Johnson MDUVA HEALTH UNIVERSITY [facility]05-25-2022 21:48-0400Body fojdej114.1 Reema Johnson [facility]05-25-2022 21:48-0400Body mass index (BMI) [Ratio]30.05 kg/t4XkotrLeonard Johnson [facility]05-25-2022 21:48-0400Body weight 81.92 kgLeonard Johnson [facility]04-19-2022 11:45-0400Body height 165.1 cmCchanserfain Plascenciamignonaram Other [employer] Other 04-19-2022 11:45-0400Body mass index (BMI) [Ratio] 30.45 kg/a1Ckyulkkkayla Branch Other [employer] Other 04-19-2022 11:45-0400Body rcrhvo57.01 kgCamkayla Plascenciatty Other [employer] Other 04-19-2022 11:45-0400Diastolic blood dlylggyd82 mm[Hg] Mick Dimignony Other [employer] Other 04-19-2022 11:45-0400Systolic blood jgfyrphl008 mm[Hg] Mick Ditty Other [employer] Other Encounters Encounter DateEncounter TypeCare ProviderFacilityStart: 01-29-2025 End: 02-08-3973Flldqqgph Result EncounterGeneric External Data ProviderNOMS External Department UnsolicitedStart: 01-29-2025 End: 18-60-1301Awowueqqn Result EncounterGeneric External Data ProviderNOMS External Department UnsolicitedStart: 01-27-2025 End: 93-40-4371Oofnhl outpatient visit 40 [facility] [place] [place] Work Phone: uh [facility] RichmondComment on above:Localized edema; Sinus node dysfunction (Multi); PVC (premature ventricular contraction); History of coronary artery stent placement; ASHD (arteriosclerotic heart disease); Ascending aorta dilation; Former cigarette smoker; BMI 31.0-31.9,adult; CHF (congestive heart failure), NYHA class I, unspecified failure chronicity, diastolic (Multi)Start: 01-27-2025 End: 21-45-9979zquxcyrpmmWNXQSJBClinch Memorial Hospital AmbulatoryStart: 01-15-2025 End: 34-97-9103cwlxnjljahWFD STAFFFacility:[facility] Start: 73-12-2557Hun-patient / Non-visitMEric Jennings-Heart Rhythm ClinicStart: 01-14-2025 End: 02-52-4217Nulswk outpatient visit 25 Tre Barlow APRN-ASSOCIATE CURATOR Work Phone: uh [facility] RichmondComment on above:Sinus node dysfunction (Multi) (Primary Dx); ASHD (arteriosclerotic heart disease); BMI 30.0-30.9,adultStart: 01-14-2025 End: 30-03-5159izelorlugxTROGC [facility] AmbulatoryStart: 01-07-2025 End: 60-54-6094Zuwtspsanjay Gar [employer] Work Phone: [facility] [place] [facility] MedinceStart: 01-07-2025 End: 1946Birboesanjay Gar [employer] Work Phone: [facility] [place] [facility] MedinceStart: 01-07-2025 End: 78-30-8809Gdqyvd outpatient visit 15 Melany Gar [employer]S Work Phone: [facility] [place] [facility] MedinceComment on above:Hospital discharge follow-up (Primary Dx); Cough, unspecified type; Constipation, unspecified constipation typeStart: 01-07-2025 End: 34-64-5353vsoouwhnwnGRL C MILLERNot AvailableStart: 12-25-2024 End: 00-11-3245Kodxyfeqp Result EncounterGeneric External Data ProviderNOMS External Department UnsolicitedStart: 12-25-2024 End: 26-70-3425Tfssdpwaw Result EncounterGeneric External Data ProviderNOMS External Department UnsolicitedStart: 12-25-2024 End: 54-98-4489bypfrnyuqaVuzixf [employer] II Work Phone: [facility] Work Phone: Start: 12-25-2024 End: 31-03-0056Amvspsyt Radha Hernandez MD-LAB [facility] Start: 12-07-2024 End: 21-60-0514Zxlnfgymj Result EncounterGeneric External Data ProviderNOMS External Department UnsolicitedStart: 12-07-2024 End: 43-18-6717Xwmzijofm Result EncounterGeneric External Data ProviderNOMS External Department UnsolicitedStart: 11-11-2024 End: 01-13-1748qooeqrsyhvFmncot Berry II Work Phone: [facility] Work Phone: Start: 11-11-2024 End: 34-62-8814Xtxdqtt encounter Roseanna Branch MD-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), w CHF (HCC); Coronary artery disease involving ugashik coronary artery of ugashik heart without angina pectoris ; Dilatation of aorta; History of coronary artery stent placement; PVCs (premature ventricular contractions); Sinus arrhythmia; Sinus bradycardia; Abnormal LFTs; Diverticulosis of colon; Gastroesophageal reflux disease without esophagitis; 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); Cervical spondylolysis; Muscle cramps; Acquired hypothyroidism ; BMI 29.0-29.9,adult; Vitamin D deficiency; Iron deficiency anemia, unspecified iron deficiency anemia type; Pancytopenia, acquired ([facility]-HCC); Former cigarette smoker; Mixed hyperlipidemia ; Situational anxiety; Unsteadiness on feet; Esophageal varices without bleeding (HCC); Other secondary pulmonary hypertension (HCC); Grade II diastolic dysfunctionStart: 10-20-2024 End: 46-24-5141ggnkgfarlpOMHCHIsiah Crokcett AvailableStart: 10-20-2024 End: 33-82-7988Zsrmzw Jimmy MIRZA Work Phone: [facility] [place] MedinceStart: 10-20-2024 End: 87-77-0967Aahjwcsanjay MIRZA Work Phone: [facility] [place] Deras MedinceStart: 10-05-2024 End: 34-52-9103Xowupq outpatient visit 25 minutesFrantz Conley MD Work Phone: NOMS CI FMComment on above:Sinus bradycardia (Primary Dx); PVCs (premature ventricular contractions); Coronary artery disease involving ugashik coronary artery of ugashik heart without angina pectoris ; 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)Start: 10-05-2024 End: 64-11-4202whsnlaslqbEXXVIL B BERRYNot AvailableStart: 10-01-2024 End: 48-72-6123Wocotggmw Result EncounterGeneric External Data ProviderNOMS External Department UnsolicitedStart: 10-01-2024 End: 79-30-8387Ekjidvdqv Result EncounterGeneric External Data ProviderNOMS External Department UnsolicitedStart: 09-23-2024 End: 22-51-1675Jiwmsruwo Result EncounterGeneric External Data ProviderNOMS External Department UnsolicitedStart: 09-23-2024 End: 18-06-0345Sdqblibgt Result EncounterGeneric External Data ProviderNOMS External Department UnsolicitedStart: 09-08-2024 End: 83-42-3385Ddwjtc outpatient visit 15 [facility] [place] [place] Work Phone: uh [facility] RichmondlandsComment on above:ASHD (arteriosclerotic heart disease); History of coronary artery stent placement; PVC (premature ventricular contraction); BMI 30.0-30.9,adult; Former cigarette smoker; Hyperlipidemia, unspecified hyperlipidemia typeStart: 09-08-2024 End: 60-40-7012ktevfvdyplRULZJGNHolland Hospital AmbulatoryStart: 05-21-2024 End: 11-90-3580Enxedmc encounter procedureDaniel Conley II Work Phone: [facility]-Ultrasound [facility] [place] Work Phone: Start: 05-21-2024 End: 39-55-6874wejskliqiwSpsvex Conley II Work Phone: [facility] Work Phone: Start: 04-30-2024 End: 05-37-7775pxbglljflmDbadlf Conley II Work Phone: [facility] Work Phone: Start: 04-30-2024 End: 45-25-0379Rvquxbn encounter procedureDaniel Conley II Work Phone: [facility]-Lab [facility] [place] Work Phone: Start: 04-22-2024 End: 33-40-1442YedcyhTtwmm Saturday [employer] M[employer] REPAIRER Work Phone: noms FMComment on above:Mixed hyperlipidemia (CMS/HCC) (Primary Dx)Start: 04-21-2024 End: 48-18-6122Djxchbtfc Result EncounterGeneric External Data ProviderNOMS External Department UnsolicitedStart: 04-21-2024 End: 56-52-1750Wmhwukrve Result EncounterGeneric External Data ProviderNOMS External Department UnsolicitedStart: 03-12-2024 End: 62-51-0866Mzvqay Davie Conley MD Work Phone: noms CI FMStart: 03-12-2024 End: 81-42-9444Ikfjix Davie Conley MD Work Phone: [facility] CI FMStart: 03-12-2024 End: 66-83-3024Qvvkvs outpatient visit 25 minutesFrantz Conley MD Work Phone: noms CI FMComment on above:Benign essential HTN (CMS/HCC) (Primary Dx); Flu vaccine need; Coronary artery disease involving ugashik coronary artery of ugashik heart without angina pectoris (CMS/HCC); Mixed hyperlipidemia (CMS/HCC); Acquired hypothyroidism (CMS/HCC); Prostate cancer screeningStart: 03-12-2024 End: 54-82-9827hkabcnanzuRFLYEA B BERRYNot AvailableStart: 01-01-2024 End: 18-87-0202Zbhhgi outpatient visit 25 Benjamín Marin Work Phone: uh FirelandsComment on above:ASHD (arteriosclerotic heart disease); PVC (premature ventricular contraction); History of coronary artery stent placement; Former cigarette smoker; BMI 29.0-29.9,adult; BradycardiaStart: 12-05-2023 End: 04-31-4549Wfvisrwwo Result EncounterGeneric External Data ProviderNOMS External Department UnsolicitedStart: 12-05-2023 End: 45-39-8836Ewjotuqdz Result EncounterGeneric External Data ProviderNOMS External Department UnsolicitedStart: 58-61-1793Ute-patient / Non-visitII Frantz Conley Work Phone: [facility] Gastroenterology Work Phone: Start: 10-23-2023 End: 55-65-3776Mlxsdgiaj to same day surgery centerII Frantz Conley Work Phone: [facility]-Digestive Health Work Phone: Start: 10-23-2023 End: 61-15-3168pelctoqdpgYC Frantz Jarvis Work Phone: [facility] Work Phone: Start: 10-01-2023 End: 86-90-8253znstpfelnvTI Frantz Conley Work Phone: [facility] Work Phone: Start: 10-01-2023 End: 89-25-8374Rwfvivz encounter procedureII Frantz Conley Work Phone: [facility]-Ultrasound [facility] [place] Work Phone: Start: 09-17-2023 End: 57-41-4497uaaybdyxkwUV Frantz Conley Work Phone: [facility] Work Phone: Start: 09-17-2023 End: 47-78-4077Qcbrbmk encounter procedureII Frantz Conley Work Phone: [facility]-Lab [facility] [place] Work Phone: Start: 06-20-2023 End: 78-16-7723Nevedu outpatient visit 40 minutesCrescencio Marin DO Work Phone: uh [facility] on above:ASHD (arteriosclerotic heart disease); History of coronary artery stent placement; Ascending aorta dilation (CMS/HCC); Iron deficiency anemia, unspecified iron deficiency anemia type; PVC (premature ventricular contraction); Former cigarette smokerStart: 06-05-2023 End: 36-12-6236jvikaltlkaXA Frantz Conley Work Phone: [facility] Work Phone: Start: 06-05-2023 End: 99-34-8812Ymwglmg encounter procedureII Frantz Jarvis Work Phone: [facility]trasound [facility] [place] Work Phone: Start: 54-22-9205Wqronu flowsRosio Conley MD Work Phone: [facility] CI FMStart: 90-20-0889Jihwbb Davie Conley MD Work Phone: noms CI FMStart: 05-08-2023 End: 96-64-3071Zqpzbsuyuxgd care manage srvc 7 day dischargeDzita Conley MD Work Phone: [facility] CI FMComment on above:Pancytopenia, acquired (CMS/HCC) (Primary Dx); Iron deficiency anemia, unspecified iron deficiency anemia type; Other cirrhosis of liver (CMS/HCC); Fatty liver disease, nonalcoholic; Hyperchylomicronemia (CMS/HCC)Start: 05-01-2023 End: 05-74-1519sbrpygvtonSI Jose Manning Work Phone: [facility] Work Phone: Start: 05-01-2023 End: 32-67-2271Gheogdpx ReferredMD Jose Manning Work Phone: [facility]-LAB Path Spec [place] HospStart: 10-04-2022 End: 96-16-5391rrhjrvoikqWM Frantz Conley Work Phone: [facility] Work Phone: Start: 10-04-2022 End: 33-86-9393Tecoghp encounter procedureII Frantz Conley Work Phone: [facility]-Ultrasound [facility] [place] Work Phone: Start: 09-28-2022 End: 30-33-4856frhcjgbnggMK Frantz Conley Work Phone: [facility] Work Phone: Start: 09-28-2022 End: 31-17-4694Uvkwmllysq RecurringII Frantz Conley Work Phone: [facility]-Cancer Center Work Phone: Start: 09-18-2022 End: 33-17-6276akcmelywzsEizjlef Ditty Other [employer] Other Start: 85-47-2558Sopqugw encounter procedureCameron ShamaryFPG GastroenterologyStart: 11-08-2021 End: 92-86-6010vwtjzwdgwhZC EHAB ELTAHAWYFacility:C9Zpdlh: 11-06-2021 End: 57-22-7291Vwgixgs encounter procedureII Frantz Conley Work Phone: [facility]-Respiratory Therapy Start: 10-10-2021 End: 56-36-3752Eykcwlc encounter procedureII Frantz Conley Work Phone: [facility]-CT Scan [facility] [place] Start: 09-20-2021 End: 92-66-8635Olhnasl encounter procedureII Frantz Conley Work Phone: [facility]-Ultrasound [facility] [place] Start: 09-19-2021 End: 23-76-1648Jfziadmmx to same day surgery centerII Frantz Conley Work Phone: [facility]-Digestive HealthStart: 09-15-2021 End: 42-67-2823Cxhgrol encounter procedureII Frantz Conley Work Phone: [facility]-Pre-Surgical Testing Start: 09-13-2021 End: 53-52-9287jijkuustspHhuqoyn Ditty Other [employer] Other Start: 47-87-8567Pkbtiue encounter procedureCameron DittyFPG GastroenterologyStart: 08-16-2021 End: 63-45-0887Rappnwunvv and management of inpatientZUBAIR AHAMMADMercy Canyon Ridge Hospitaltart: 08-16-2021 End: 18-23-4710Vpopjaawzv and management of inpatientAaron M Orqvist MDSTVZ CAR 1Comment on above:Subarachnoid hemorrhage following injury, no loss of consciousness, initial encounter (HCC) (Primary Dx); Facial laceration, initial encounterStart: 08-16-2021 End: 84-60-3708ztiosdohfyFMQLZGV D KATELMERFacility:M8Hwfer: 07-12-2021 End: 10-19-1642xijmkrvgmnDAWSSCG DITTYFacility:F6Csmdt: 07-11-2021 End: 80-33-9241hbpwbiybwkWxtfhru Ditty Other [facility] [employer] Other Start: 94-59-3184AYZH visit new patientCamkayla Branch FPG GastroenterologyStart: 03-01-2021 End: 06-23-3363bgsssagocqEL DANIEL BERRYFacility:C5Mtsfy: 02-03-2021 End: 35-60-7305wlgeotkekaDT DANIEL BERRYFacility:Z9Ttodu: 10-30-2018 End: 18-11-7603Heyyfix encounter procedureRAMARYEILEEN SCHAFERFacility:UTMCStart: 02-28-2018 End: 20-94-3189Nyhrofc encounter procedureZOTOM ANDREAFacility:UTMCStart: 02-25-2018 End: 45-43-0331Amxysvs encounter procedureJonatyesi FragaFacility:FTBELLWOOD GENERAL HOSPITALtart: 02-11-2018 End: 95-57-4332Xxbtnsr encounter procedureJomatteo FragaFacility:[facility] Procedures DateProcedureProcedure DetailPerforming ClinicianStart: 74-33-7335AKQ CBC WITH AUTO DIFFGeneric External Data ProviderStart: 57-90-3047QyqjnSanjuana Conley II Work Phone: Start: 78-40-5615FPOGH CULTURE - [facility] OKLAHOMA CITYGeneric External Data ProviderStart: 18-31-8175YDQ CBC WITH AUTO DIFFGeneric External Data ProviderStart: 11-30-3993FWZ BASIC METABOLIC PANELGeneric External Data Provider Start: 02-47-6223FBR LIPID PROFILE (FASTING)Generic External Data ProviderStart: 99-54-3524TXZ ALTGeneric External Data ProviderStart: 64-22-8602MDE ASTGeneric External Data ProviderStart: 84-53-2130QVA CBC WITH AUTO DIFFGeneric External Data ProviderStart: 68-94-8430Rqnazctyugirzqo of abdomenDashanae Conley II Work Phone: Start: 38-69-7828QOK CBC WITH AUTO DIFFGeneric External Data ProviderStart: 83-73-0342Pfs routine ecg w/least 12 lds w/i&r Crescencio S Tomas DO Work Phone: Start: 76-62-8017CTA CBC WITH AUTO DIFFGeneric External Data ProviderStart: 50-36-5853GxpbjazoobtansduenvblmtqnaTK Frantz Conley Work Phone: Start: 90-13-2377Duylnqvocumyoyg of liverII Frantz Conley Work Phone: Start: 32-87-5775Nisyxul of placement of stent for coronary artery diseaseHistory of coronary artery stent placementWilliam Aníbal LiaoTomas Work Phone: Start: 95-60-3081Grk routine ecg w/least 12 lds w/i&r Crescencio S Tomas DO Work Phone: Start: 40-83-4382ZQ scan of spleenII Frantz Conley Work Phone: Start: 51-89-5220Opthv 1996 panel - Serum or Plasma Crescencio Marin DO Work Phone: Start: 79-07-2867Ngzzjjobzpqdoev of liverII Frantz Conley Work Phone: Start: 54-18-5901Xsvionu of placement of stent for coronary artery diseaseS/P coronary artery stent placementFrantz Conley MD Work Phone: Start: 69-07-3192Brbfofon tomography of abdomen and pelvis with contrastII Frantz Conley Work Phone: Start: 47-39-3635Wtzaznuhnflvhtk of liverII Frantz Conley Work Phone: Start: 29-28-7850NepxjisnzwlidwjwtltmbsdoohOA Frantz Jarvis Work Phone: Start: 26-47-3144VBVJY METABOLIC PANEL W/ REFLEX TO MG FOR LOW KHayley Arthur Flannery DO Work Phone: Start: 10-73-5800Ynpqg count complete auto&auto difrntl wbcHaylearam Flannery DO Work Phone: Start: 56-00-7450Kiuyt s aureus methicillin resist amp probe Colin Suarez MD Work Phone: Start: 48-27-8269Zm head/brain w/o contrast material Rishi Arteaga DO Work Phone: History of placement of stent for coronary artery diseaseHistory of coronary artery stent placementWisissy S Tomas DO Work Phone: History of placement of stent for coronary artery diseaseHistory of coronary artery stent placementWiclaytonm S Tomas DO Work Phone: History of placement of stent for coronary artery diseaseHistory of coronary artery stent placementRosanna MIRZA Work Phone: History of placement of stent for coronary artery diseaseHistory of coronary artery stent placementWilliam S Tomas DO Work Phone: Plan of Treatment DateCare ActivityDetailAuthorStart: 19-41-6891Gcekr panelLipid PanelThe MetroHealth SystemStart: 07-29-2026Medicare Annual Wellness (AWV)Medicare Annual Wellness (AWV)[facility] ChildrenStart: 09-14-2025 End: 55-30-2746Evhuhfn encounter ntmohelfx71/23/2026 2:00 PM EDT Office Visit [place] [id number] [place] [address] Crescencio Marin DO [address] [place], [place] [id number] [facility]Start: 05-11-2025 End: 03-08-1041Ihmipuk encounter ygivnpwpt89/17/2026 1:00 PM EST Office Visit [facility] [address] [place] [address] Buck Barlow, WAN SUPPORT SPECIALIST-ASSOCIATE CURATOR [address] [place] [address] [facility]Start: 04-12-2025 End: 54-60-3561Pzmkzrl encounter nuayhdktj89/19/2026 11:00 AM EST Office Visit NOMAníbal AyonJohnathonarthur Almaraz [address] [facility] [address] [place] [id number] Frantz Conley MD [address] [facility] [address] [place] [address] NOMAníbal Deras [facility] CentereStart: 02-04-2025 End: 33-49-4358Kxftook encounter iuxwcctke23/13/2025 1:15 PM EST Appointment [facility] [address] [facility] [address] [place] [address] [facility]aryStart: 01-27-2025 End: 63-37-4216Yckaiyovxuv peptide B [Mass/volume] in BloodB-Type Natriuretic Peptide Lab Routine Localized edema Sinus node dysfunction (Multi) ASHD (arteriosclerotic heart disease) Ascending aorta dilation CHF (congestive heart failure), NYHA class I, unspecified failure chronicity, diastolic (Multi) Expected: 01/27/2025, Expires: 01/27/2026[facility] Service Area Work Phone: Comment on above:Expected: 01/27/2025, Expires: 01/27/2026Start: 01-27-2025 End: 34-75-9588YX Heart TransthoracicTransthoracic Echo Complete Echocardiography Routine Localized edema Sinus node dysfunction (Multi)ASHD (arteriosclerotic heart disease) Ascending aorta dilation Expected: 01/27/2025 (Approximate), Expires: 01/27/2027[facility] Work Phone: Comment on above:Expected: 01/27/2025 (Approximate), Expires: 01/27/2027Start: 01-16-2025 End: 75-08-7716GhnijynhqCincinnati Children's Hospital Medical Centertart: 96-91-6669Mkjqbaka to clinical allergistCincinnati Children's Hospital Medical Centertart: 01-07-2025 End: 00-72-5026Uolfdsr encounter dgseqmrwu71/16/2025 11:30 AM EDT Office Visit [facility] [place] Oropezashruthi [address] [place] [address] Salima Gar, LOW [address] [facility] [address] [place] [address] ArrivedNOMS [place] Deras MedinceComment on above:ArrivedStart: 66-87-6524Rdgiessu identified in Urine by CultureUrine CultureCincinnati Children's Hospital Medical Centertart: 70-64-1171Ttkcp cultureCincinnati Children's Hospital Medical Centertart: 12-07-2024 End: 36-34-2422Qubbydy encounter procedureNOMS CI FMStart: 20-76-4186OWIIE-19 Vaccine ( season)COVID-19 Vaccine ( season)[facility]: 49-73-3527Mimjpuyjo vaccinationInfluenza Vaccine (#1)[facility] HealthcareStart: 46-94-5934Wxcejbgox vaccinationInfluenza Vaccine (#1) [facility]: 07-29-2025Medicare Annual Wellness (AWV) Medicare Annual Wellness (AWV)[facility] HealthcareStart: 10-20-2024 End: 09-54-5458Irzhklf encounter procedureNOMS CI FMComment on above:Arrived Start: 10-05-2024 End: 31-94-8261Iypatoo encounter xshtbsxan65/14/2025 11:00 AM EDT Office Visit [facility] CI FM [address] [facility] [address] [place] [address] Frantz Conley MD [address] [place] [address] [facility] CI FMStart: 09-08-2024 End: 16-03-6408Nprfkjp encounter vjapajdfd52/17/2025 3:00 PM EDT Office Visit [address] [place] [id number] Crescencio Marin DO [address] [facility] [address] [place] [address] [facility]: 09-08[facility]2024 End: 31-15-4660Lafgupu aminotransferase [Enzymatic activity/volume] in Serum or Plasma by With P-5'-PAlanine Aminotransferase Lab Routine ASHD (arteriosclerotic heart disease) Hyperlipidemia, unspecified hyperlipidemia type Expected: 09/08/2024 (Approximate), Expires: 09/08/2025[facility] Work Phone: Comment on above:Expected: 09/08/2024 (Approximate), Expires: 09/08/2025Start: 09-08-2024 End: 73-45-0372Rxkivpiha aminotransferase [Enzymatic activity/volume] in Serum or Plasma by With P-5'-PAspartate Aminotransferase Lab Routine ASHD (arteriosclerotic heart disease) Hyperlipidemia, unspecified hyperlipidemia type Expected: 09/08/2024 (Approximate), Expires: 09/08/2025[facility] Work Phone: Comment on above:Expected: 09/08/2024 (Approximate), Expires: 09/08/2025Start: 09-08-2024 End: 55-35-0443Cjbna metabolic 2000 panel - Serum or PlasmaBasic Metabolic Panel Lab Routine ASHD (arteriosclerotic heart disease) PVC (premature ventricular c ontraction) Expected: 09/08/2024 (Approximate), Expires: 09/08/2025[facility] Work Phone: Comment on above:Expected: 09/08/2024 (Approximate), Expires: 09/08/2025Start: 09-08-2024 End: 70-95-9807Djlmh 1996 panel - Serum or PlasmaLipid Panel Lab Routine ASHD (arteriosclerotic heart disease) Hyperlipidemia, unspecified hyperlipidemia type Expected: 09/08/2024 (Approximate), Expires: 09/08/2025[facility] Work Phone: Comment on above:Expected: 09/08/2024 (Approximate), Expires: 09/08/2025Start: 19-24-5344Lsxbc-1-fetoprotein.tumor marker [Mass/volume] in Serum or PlasmaCincinnati Children's Hospital Medical Centertart: 03-12-2024 End: 81-09-2609Mtfmy 1996 panel - Serum or PlasmaLipid panel Lab Routine Mixed hyperlipidemia (CMS/HCC) Expected: 03/12/2024 (Approximate), Expires:03/12/2025 [facility] HealthcareComment on above:Expected: 03/12/2024 (Approximate), Expires: 03/12/2025Start: 03-12-2024 End: 35-87-6772MFO W/REFLEX TO FT4TSH W/REFLEX TO FT4 Lab Routine Acquired hypothyroidism (CMS/HCC) Expected: 03/12/2024 (Approximate), Expires: 03/12/2025 [facility] HealthcareComment on above:Expected: 03/12/2024 (Approximate), Expires: 03/12/2025Start: 03-12-2024 End: 74-47-8432Zlppkds encounter procedureNOMS CI FMComment on above:Arrived Start: 12-25-2023 End: 05-77-5813Bdgmvsh encounter idwlztiap25/02/2024 10:20 AM EDT Office Visit [facility] [address] [place] [address] Crescencio Marin, [address] [facility], [address] [place] [address] [facility] NorthStvarna: 86-95-0019VNZWC-19 Vaccine ( season)COVID-19 Vaccine ( season)[facility]: 45-10-9974BKLGW-19 Vaccine ( season)COVID-19 Vaccine ( season)[facility]: 85-47-6036Rsutrwylm vaccinationInfluenza Vaccine (#1)[facility] HealthcareStart: 11-06-2023 End: 07-40-1291Tyhllzj encounter jguphwbuv47/14/2024 11:00 AM EDT Office Visit [facility] CI FM [address] [facility] [address] [place] [address] Frantz Conley MD [address] [facility] [address] [place] [address] NOMS CI FMStart: 48-64-4804FuxfvddrsKettering Health [facility] Start: 10-21-2023 End: 92-81-6941Gmjugpa encounter iaghkhsoy82/29/2024 11:00 AM EDT Office Visit [facility] CI FM [address] [facility] [address] [place] [address] Frantz Conley MD [address] [facility] [address] [place] [address] N[facility] CI FMStart: 61-86-8068Syrlu-1-fetoprotein.tumor marker [Mass/volume] in Serum or PlasmaCincinnati Children's Hospital Medical Centertart: 05-31-2024Medicare Annual Wellness (AWV)Medicare Annual Wellness (AWV)[facility] HealthcareStart: 06-26-2023 End: 85-98-0482Hxlxsrrsasrv / ancillary services bbjzolnrib22/03/2024 10:00 AM EDT Ancillary Procedure [place] [address] [address] [place] FirelandsStart: 06-20-2023 End: 27-81-8749Ruabcb monitor studyHolter Or Event Riveter Helper Cardiac Services Routine PVC (premature ventricular contraction) Expected: 06/20/2023 (Approximate), Expires: 06/19/2024[facility] Service Area Work Phone: Comment on above:Expected: 06/20/2023 (Approximate), Expires: 06/19/2024Start: 06-10-2023 End: 25-04-1560Oswgtjn encounter qoathezfw19/18/2024 10:30 AM EDT Office Visit [facility] CI FM [address] [facility] [address] [place] [address] Frantz Conley MD [address] [facility] [address] [place] [address] [facility] CI FMStart: 05-08-2023 End: 79-33-9893UV Abdomen [facility] Work Phone: Comment on above:Expected: 05/08/2023, Expires: 05/08/2024Start: 05-08-2023 End: 84-41-5434Pxoyeea encounter tyywnmcxh87/14/2024 10:30 AM EST Office Visit [facility] CI FM [address] [facility] [address] [place] [address] Frantz Conley MD [address] [facility] [address] [place] [address] ArrivedNOTN CI FMComment on above:ArrivedStart: 11-23-2022 COVID-19 Vaccine ()COVID-19 Vaccine () [facility]: 90-85-2158YzrmztxcyhbrifngSlveudekkszcwi [facility]: 90-96-4164Qkzel panelLipMountain States Health Allianceart: 72-70-2036HcwwpbazrAdena [facility] Work Phone: Start: 08-24-2021 End: 48-41-8650WZ HEAD WO CONTRASTCT HEAD WO CONTRAST Imaging Routine Subarachnoid hemorrhage following injury, no loss of consciousness, initial encounter (HCC) Expected: 08/24/2021, Expires: 08/17/2022[facility] Work Phone: comment on above:Expected: 08/24/2021, Expires: 08/17/2022Start: 53-51-6891BYX High Risk: (Elderly (60+) or Population) (1 - 1-dose 75+ series)RSV High Risk: (Elderly (60+) or Population) (1 - 1-dose 75+ series)[facility]: 09-30-2019 Pneumococcal 65+ years Vaccine (2 - PCV)Pneumococcal 65+ years Vaccine (2 - PCV) [facility]: 92-14-2328Owctjmftpurv vaccinationPneumococcal Vaccine (2 of 2 - PCV)[facility]: 09-30-2019 Pneumococcal Vaccine: 65+ Years (2 - PCV)Pneumococcal Vaccine: 65+ Years (2 - PCV)[facility]: 49-54-8557Yrfphhzthmzc Vaccine: 65+ Years (2 of 2 - PCV)Pneumococcal Vaccine: 65+ Years (2 of 2 - PCV)[facility]: 41-83-8293Rpohfxakm B Vaccines (1 of 3 - Risk 3-dose series) Hepatitis B Vaccines (1 of 3 - Risk 3-dose series)[facility]: 91-20-3263LEG patients and/or patients aged 60+ years (1 - 1-dose 60+ series)RSV patients and/or patients aged 60+ years (1 - 1-dose 60+ series)[facility]: 85-99-6813Swbsgctee for malignant neoplasm of colonBON [facility]: 1967 DTaP/Tdap/Td Vaccines (1 - Tdap)DTaP/Tdap/Td Vaccines (1 - Tdap)[facility]: 40-44-2962DCdN/Tdap/Td vaccine (1 - Tdap) DTaP/Tdap/Td vaccine (1 - Tdap)[facility]: 1964 Hepatitis A Vaccines (1 of 2 - Risk 2-dose series)Hepatitis A Vaccines (1 of 2 - Risk 2-dose series)[facility]: 24-51-3375Eqmca screening for proteinCKD: Urine Protein ScreeningUnMercy Health St. [facility]'s Medical [facility]: 81-00-9700Pobetfvo mellitus screeningDiabetes Screening [facility]: 66-80-6233Qusgrxpzm C screeningBON [facility]: 98-58-6648Wpyfralsiv ScreenDepression ScreenSentara RMH Medical Center: 91-69-5306Rsqwmercwr measurementCreatinine Level [facility]: 05-08-1946Medicare Annual Wellness Visit Medicare Annual Wellness Visit (AWV)[facility] SystemStart: 84-59-5159Cbunvuvlw measurementPotGrady Memorial Hospital – Chickasha Start: 30-40-3248Nxzqbcc stimulating hormone measurementTSPhysicians Hospital in Anadarko – AnadarkoOxygen therapy [Minimum Data Set]Initiate Oxygen Therapy Protocol Respiratory Care Routine As Needed until discontinued starting 07/24ON [employer] Work Phone: comment on above:As Needed until discontinued starting 08/16/2021atient [facility] Work Phone: Prostate specific Ag [Mass/volume] in Serum or Plasma PSA Lab Routine Prostate cancer screening Ordered: 03/12/2024[facility] Work Phone: Comment on above:Ordered: 03/12/2024 End: 43-45-1071Wdhtfx and language therapy regimeSpeech language pathology evaluation CLINIC LPN Routine One Time for 1 Occurrences starting 08/16/2021 until 08/16/2021[employer] Work Phone: comment on above:One Time for 1 Occurrences starting 08/16/2021 until 08/16/2021[facility] Lab Routine 12/25/2024 2:15 AM [facility] Immunizations Immunization DateImmunizationNotesCare MzzmdfjwInqrhqkw43-85-8558Hvsgvfwyf, High-dose Seasonal, Quadrivalent, Preservative Izabela Conley MD Work Phone: [facility] ChildrenQleiwizges71-64-1910fpscibhmo virus vaccine, unspecified formulationGeneric ProviderShriners Hospitals for ChildrenYilocbmtvv18-37-8634bklkybphq, high dose seasonal, preservative-freeGeneric [facility]10-13-2023 Influenza, Seasonal, Quadrivalent, AdjuvantCj Conley MD Work Phone: MeilleurMobileMercy hospital springfieldNtyzszjswe60-63-3096htxfgnnph virus vaccine, unspecified formulationGeneric ProviderShriners Hospitals for ChildrenEgxddawtff89-61-2615Ihkdotmjp, High- dose Seasonal, Quadrivalent, Preservative Izabela Conley MD Work Phone: [facility] Work Phone: [phone]CPID-45 Ad26.COV2.S (Caleb)II Frantz Conley Work Phone: [phone] [place], [place] [address]10-15-2021influenza, high dose seasonal, preservative-Izabela Conley MD Work Phone: [facility] ChildrenRkdntfhacr01-13-5818Cyjtchmhn, High-dose Seasonal, Quadrivalent, Preservative Izabela Conley MD Work Phone: [phone] [place], [place] [address]Udxilcgvst47-04-7903VMGTR-02 mRNA-1273 (Moderna) II Frantz Conley Work Phone: [phone] [place], [place] 3865902-04-2021COVID-19 mRNA-1273 (Moderna)II Frantz Conley Work Phone: [phone] [place], [place] [address]10-14-2020Influenza, High-dose Seasonal, Quadrivalent, Preservative Izabela Conley MD Work Phone: [phone] [place], [place] [address]Hbltbslxjf71-19-4328tkfxdv vaccine recombinant Frantz Conley MD Work Phone: [phone] [place], [place] [address]Ghatxfiqgb13-68-7955ytunmd vaccine recombinant Frantz Conley MD Work Phone: [phone] [place], [place] [address]Mjuoxmmery99-73-9820xxlyqrhou, high dose seasonal, preservative-Izabela Conley MD Work Phone: [phone] [place], [place] [address]Qegoqnqozz62-86-1561gxkgoxfrcqcu polysaccharide vaccine, 23 valentDashanae Conley MD Work Phone: [facility] ChildrenSgwcwxiguf57-12-4038Uxxxaqmnz, High-dose Seasonal, Quadrivalent, Preservative Izabela Conley MD Work Phone: [phone] [place], [place] [address]Saztqaqill80-95-8692Hvfmynfzj, High-dose Seasonal, Quadrivalent, Preservative Izabela Conley MD Work Phone: [facility] ChildrenDyhapcdvfl85-75-9372fyzyuwrss, seasonal, injectable, preservative Izabela Conley MD Work Phone: [facility] ChildrenSgcqqtdjep94-28-0697gvhlixte influenza, intradermal, preservative Izabela Conley MD Work Phone: [facility] Payers DatePayer CategoryPayerPolicy [id number] of Defense ( and others)[id number] For Life (TFL) FOR LIFE 1.2.840.316626.1.13.647.2.7.9.169449.536073.68304-55-7533Mmmeavyggw of Defense ( and others)1.2.840.577563.1.13.693.2.7.3.911777.62172-93-3360CBRQCRO () 1.2.840.063654.1.13.693.2.7.9.029253.694785.95269-99-7635Adpkxoewsc of Defense ( and others)[id number] 2012Medicare 1.2.840.319131.1.13.693.2.7.3.634899.53491-80-9777Sordxllpwj of Defense ( and others)[id number] [id number] [id number] 2.16.840.1.576595.3.57[id number] 2.840.1.720475.3.57[id number] 2.16840.1.670365.3.579.[id number] 2.840.1.961999.3.579.2.8[id number] 2.840.1.698350.3.579.2.62594-25-1869Tlbmspg0220131 2.840.1.219832.3.579.2.47933-76-1157Qqdszvm1879012 2.840.1.287165.3.579.2.95504-12-0611Ckokcwj4041949 2.840.1.400069.3.57[id number] 2.840.1.037530.3.579.2.88886-67-9512Poymzju6231544 2.840.1.122102.3.579.[id number] 2.840.1.150239.3.579.2.117739-54-0326Jdobvaq62235018 2.16840.1.204428.3.579.2.923200-63-3500Xrthvyr48718255 2.840.1.864868.3.579.2.144283-60-1714Qfakapu0305269 2.16.840.1.486122.3.579.2.[id number] 2.16.840.1.879040.3.579.[id number] 2.16.840.1.779212.3.579.2.4[id number] 2.16.840.1.33[id number] 2.16.840.1.701865.3.579.2.531 [id number] 2.16.840.1.027311.3.579.2.941Kvdehtv29024245 2.16.840.1.353585.3.579.2.330Apycnip30431820 2.16.840.1.112943.3.579.2.531 Fpvtpbh94285574 2.16.840.1.257210.3.579.2.531 Social History DateTypeDetailFacilityStart: 68-13-2344Xpergir smoking status NHISTobacco smoking consumption unknownCLEARSKY RE[facility] [employer] SoftwareStart: 08-16-2021 End: 79-09-7654Nkmwkxb intakeLifetime non-drinker (finding)[facility] [employer] Phone: start: 31-43-6835Qozyyaj SDOH Alcohol Tbuqbwolr8SVR [employer] Phone: start: 89-43-5013Rvq Assigned At BirthNot on [facility] [employer] Phone: start: 08-06-2021 End: 41-75-4917Ksneqsfb to SARS-CoV-2 (event)Not sureCLEARSKY REHABILITATION HOSP[facility] [employer] Phone: start: 04-15-2023 End: 38-65-6489Rsd [facility]igned At [facility] HealthcareStart: 05-10-2021 End: 82-60-5772Vusuvop smoking status NHISNever smoked tobacco (finding) [facility]art: 81-64-3163Yml [facility]igned [facility] Centertart: 08-16-2022 End: 28-87-5920Yiffojr use and exposureSmokeless tobacco non-userNOMS Healthcare Start: 04-22-2023 End: 50-38-5216Gbqpinp intakeEx-drinker (finding)[facility] HealthcareStart: 04-15-2023 End: 92-14-6075Nnwvbtu of Social functionNOMS HealthcareWithin the last year, have you been afraid of your partner or ex-partner?NoNOMS HealthcareStart: 80-75-0118Zmw often do you get together with friends or relatives?Patient refusedNOMS HealthcareDo you belong to any clubs or organizations such as scientology groups, [employer]ge[employer], [employer] or athletic groups, or school groups?YesNOMS HealthcareAre you now , , , , never or living with a partner?MarriedNOMS HealthcareHow often to you have a drink containing alcohol?NeverNOMS Healthcare(I/We) worried whether (my/our) food would run out before (I/we) got money to buy more.Never trueNOMS Healthcare Start: 06-50-8010Cowmwjy Commentcaffeine intake: 1-2 cups per day.[facility] HealthcareStart: 06-20-2023 End: 49-91-2121Gztdsny smoking status NHISEx-smokerUnCleveland Clinic Fairview Hospital Work Phone: End: 59-27-0898Phrwkjb of tobacco useCurrent smokerUnCleveland Clinic [facility]view Hospital Work Phone: End: 86-15-4134Uuphocl of tobacco useCigarette SmokerUnCleveland Clinic [facility]view Hospital Work Phone: Start: 98-64-2776Eyqpxd identityIdentifies as male gender (finding)[facility] Work Phone: Start: 53-93-4503Owfcjd orientationHeterosexual (finding)[facility] Work Phone: Start: 78-11-0255BmpTsyqkdg sex unknown (finding) [facility] Cent[facility]art: 06-10-2023 End: 25-95-2572FfxKpza (finding)[facility] Centertart: 96-40-8375Argtaro use and exposureFormer smokeless tobacco userUnCleveland Clinic Fairview Hospital Work Phone: End: 37-98-5213Pwzyqfc of tobacco useUser of smokeless tobaccoUnCleveland Clinic [facility] Hospital Work Phone: Goals DatePatient GoalDesired Activity/State Functional Status JxrsJyuekvgydsEsjycrQuasgays26-45-3380Jqvirztong putepn666/UnCleveland Clinic Fairview Hospital Work Phone: [phone]ei signs66 01/27/2025 10:59 AM EST [facility] Work Phone: [phone]ugcCleveland Clinic Fairview Hospital Work Phone: [phone]ukkubjg rpstov967/UnCleveland Clinic Fairview Hospital Work Phone: [phone]ymtc signs47 01/14/2025 1:26 PM Lachelle Layne [facility]ALTHUnC[facility] Work Phone: [phone]lyohkThe [facility] System Work Phone: [phone] 333-734307273700-30-2724Rqhgrgc Health Questionnaire 2 item (PHQ-2) [Reported][facility] for ChildrenAurwtkuafb66-29-5066Xxrdfnv Health Questionnaire 2 item (PHQ-2) [Reported][facility] Clinical Notes 05-23-2021 to 01-27-2025 Note Date & DazcOwctTlchqasa16-18-0777 History of Present illness Narrative* Crescencio Marin, [...] PCI of the ostial/proximal circumflex at [facility] he says around 4+ years [...] his aspirin was recently started at the [place] when he was evaluated for syncope/near [...] tablet 1 tablet, Daily fish oil concentrate (Wichita-3) 120-180 mg capsule 1,000 mg, Daily levothyroxine [...] exam, discussion and plan. documented in this [facility] Work Phone: [phone]) 183-994411-05-2025 Instructions* Patient Instructions* Shawna Arce RN - [...] daily for 2 weeks. documented in this [facility] Work Phone: [phone] 652-819410-23-2025 Evaluation + Plan note* Assessment & Plan Note - LIZETH Huber - 01/14/2025 4:26 PM EDTAssociated Problem(s): BMI 30.0-30.9,adult Reviewed the merits of healthy lifestyle choices on overall cardiovascular health. [facility] Work Phone: [phone] 571-787310-23-2025 Evaluation + Plan note* Assessment & Plan Note - LIZETH Huber - 01/14/2025 4:26 PM EDTAssociated Problem(s): Sinus node dysfunction (Multi) Dec 2024 hospitalization at [facility] due to weakness/ ? Near syncope. Tele: SR with PAC, junctional, pause 1.4 seconds 30 day MARIANN: NO AVN blocking agents 3 recorded episodes during awake hours ranging 3.1 -3.4 seconds ECG in office today: progression bifascicular block. Sinus bradycardia at 47bpm with PAC and junctional. [facility] Work Phone: [phone] 159-607510-23-2025 Miscellaneous Notes* Assessment & Plan Note - LIZETH Huber - 01/14/2025 4:26 PM EDTAssociated Problem(s): BMI 30.0-30.9,adult Reviewed the merits of healthy lifestyle choices on overall cardiovascular health. * Assessment & Plan Note - LIZETH Huber - 01/14/2025 4:26 PM EDT Associated Problem(s): Sinus node dysfunction (Multi) Dec 2024 hospitalization at [facility] due to weakness/ ? Near syncope. [...] (arteriosclerotic heart disease) 2019 [place] FINAL IMPRESSION: 1. Stable coronary artery disease. [...] METs without concerning symptoms documented in this encounterThe [facility]Health System Work Phone: [phone] 347-906610-23-2025 Evaluation + Plan note* Assessment & Plan Note - LIZETH Huber - 01/14/2025 4:23 PM EDTAssociated Problem(s): Cardiac and Vasculature Oct 2021 TTE EF 65% [facility] Work Phone: [phone] 931-941910-23-2025 Evaluation + Plan note* Assessment & Plan Note - LIZETH Huber - 01/14/2025 1:30 PM EDTAssociated Problem(s): ASHD (arteriosclerotic heart disease) 2019 [place] Cath [place] FINAL IMPRESSION: 1. Stable coronary artery disease. [...] activity > 4 METs without concerning symptoms [facility] Work Phone: [phone] 270-117810-23-2025 History of Present illness Narrative* LIZETH Huber - 01/14/2025 1:30 PM EDT Chief Complaint I am doing fine Reason for Visit Patient presents to the office today for outpatient follow-up for hospital follow-up. Last evaluated in clinic by Dr. Marin August 2024. Presents today ambulatory with steady gait. November 2024: Hospitalized at [facility] due to weakness. He reports that [...] was somewhat argumentative and eventually Dr. Marin cameover from the hospital to discuss with patient. After discussion, patient agrees to proceed with pacemaker implant. Dr. Marin has personally contacted [facility] and arrangements will be [...] tablet 1 tablet, Daily fish oil concentrate (Wichita-3) 120-180 mg capsule 1,000 mg, Daily levothyroxine (SYNTHROID, LEVOXYL) 88 mcg, Daily before breakfast multivitamin with minerals tablet 1 tablet, Daily omeprazole (PRILOSEC) 40 mg, Daily tiZANidine (ZANAFLEX) 4 mg, Nightly PRN Assessment: ASHD (arteriosclerotic heart disease) 2019 [place] FINAL IMPRESSION: 1. Stable coronary artery disease. [...] node dysfunction (Multi) Dec 2024 hospitalization at [facility] due to weakness/ ? Near syncope. [...] for dual-chamber permanent pacemaker implant tomorrow at [facility]. Buck Barlow MSN, WAN SUPPORT SPECIALIST-ASSOCIATE CURATOR, PMHNP-[facility] [place], [place] Please excuse any errors in grammar or translation related to this dictation. Voice recognition software was utilized to prepare this document. documented in this encounterUnCleveland Clinic Fairview Hospital Work Phone: [phone] 329-671110-23-2025 Instructions* Patient Instructions* Maria Dolores Carbajal LPN [...] be sent through Care Everywhere. * Pacemakers (Thai) documented in this encounterUnCleveland Clinic Fairview Hospital Work Phone: [phone] 144-547510-16-2025 History of Present illness Narrative* Salima Gar NP - 01/07/2025 11:30 AM EDT Images from the original note were not included. Subjective Patient ID: Pankaj Payne is a 79 y.o. male who presents for [facility] follow up. Flowsheet Row Patient Outreach from 12/28/2024 in [facility] with Dang Bosch LPN Hospital Information ED, Hospital or Halfway Facility Discharge? Hospital Patient has been contacted within two business days of discharge Yes Diagnosis (1) Hypotension: (2) Coronary artery disease: (3) H/O heart artery stent: (4) Hyperlipidemia: (5) Steatohepatitis: (6) Portal hypertension: (7) Thrombocytopenia: (8) GAVE (gastric antral vascular ectasia): (9) Anemia: (10) Hypothyroid Discharge Date 12/26/24 Discharged To: Home Setting Discharge Hospital [facility] Engagement Call Start Time 1140 Admission [...] by mouth 1 (one) time each day. Wichita-3 Fatty Acids (Fish Oil) 1000 MG capsule [...] He was seen following his 's at [facility] er for weakness, fatigue and cough. [...] No follow-ups on file. documented in this [facility]10-16-2025 Instructions* Patient Instructions* Salima Gar NP - 01/07/2025 11:30 AM EDT Miralax prn added. Benzonatate added documented in this [facility]08-20-2025 Evaluation note* Diagnosis Onset Date Resolution Status Admit Date Cirrhosis, nonalcoholic acuteAugust 2024 1:26pmEsophageal varicesacuteAugust 2024 1:26pmGAVE (gastric antral vascular ectasia)acuteAugust 2024 1:26pmIron deficiency anemiaacuteAugust 2024 1:26pmMetabolic dysfunction-associated steatohepatitis (MASH)acuteAugust 2024 1:26pmMetabolic dysfunction- associated steatotic liver disease (MASLD)acuteAugust 2024 1:26pm Pancytopenia, acquiredchronicAugust 2024 1:26pm [facility] Work Phone: 1(307) 175-197108-20-2025 Evaluation note* Diagnosis Onset Date Resolution Status Admit Date Cirrhosis, nonalcoholic acuteAugust 2024 1:26pmEsophageal varicesacuteAugust 2024 1:26pmGAVE (gastric antral vascular ectasia)acuteAugust 2024 1:26pmIron deficiency anemiaacuteAugust 2024 1:26pmMetabolic dysfunction-associated steatohepatitis (MASH)acuteAugust 2024 1:26pmMetabolic dysfunction- associated steatotic liver disease (MASLD)acuteAugust 2024 1:26pm Pancytopenia, acquiredchronicAugust 2024 1:26pmLow platelet countacute January 15, 2025 7:39amNear syncopeacuteOct2024 7:39amSick sinus syndrome due to SA node dysfunctionacuteOctober 2024 7:39am [facility] Work Phone: [phone]) 779-887407-29-2025 History of Present illness Narrative* HERMES Campa [...] Do you have a medical power of trademark attorney?: Yes Current Outpatient Medications on File [...] by mouth 1 (one) time each day. Wichita-3 Fatty Acids (Fish Oil) 1000 MG capsule [...] essential HTN The patient is seeing a lpn or medical assistant for this condition, treatment is deferred to that specialist. Correspondence from that specialist and any available testing were reviewed during today's visit. 6. 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 Correspondence from that specialist and any available testing were reviewed during today's visit. 7. Coronary artery disease involving ugashik coronary artery of ugashik heart without angina pectoris The patient is seeing a lpn or medical assistant for this condition, treatment is deferred to that specialist. Correspondence from that specialist and any available testing were reviewed during today's visit. 8. Dilatation of aorta The patient is seeing a lpn or medical assistant for this condition, treatment is deferred to that specialist. Correspondence from that specialist and any available testing were reviewed during today's visit. 9. History of coronary artery stent placement The patient is seeing a lpn or medical assistant for this condition, treatment is deferred to that specialist. Correspondence from that specialist and any available testing were reviewed during today's visit. 10. PVCs (premature ventricular contractions) The patient is seeing a lpn or medical assistant for this condition, treatment is deferred to that specialist. Correspondence from that specialist and any available testing were reviewed during today's visit. 11. Sinus arrhythmia The patient is seeing a lpn or medical assistant for this condition, treatment is deferred to that specialist. Correspondence from that specialist and any available testing were reviewed during today's visit. 12. Sinus bradycardia The patient is seeing a lpn or medical assistant for this condition, treatment is deferred to that specialist. Correspondence from that specialist and any available testing were reviewed during today's visit. 13. Abnormal LFTs The patient is seeing a lpn or medical assistant for this condition, treatment is deferred to that specialist. Correspondence from that specialist and any available testing were reviewed during today's visit. 14. Diverticulosis of colon The patient is seeing a lpn or medical assistant for this condition, treatment is deferred to that specialist. Correspondence from that specialist and any available testing were reviewed during today's visit. 15. Gastroesophageal reflux disease without esophagitis The patient is seeing a lpn or medical assistant for this condition, treatment is deferred to that specialist. Correspondence from that specialist and any available testing were reviewed during today's visit. 16. 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 Correspondence from that specialist and any available testing were reviewed during today's visit. 23. Pancytopenia, acquired (CMS-HCC) The patient is seeing a lpn or medical assistant for this condition, treatment is deferred to [...] bleeding (HCC) The patient is seeing a lpn or medical assistant for this condition, treatment is deferred to that specialist. Correspondence from that specialist and any available testing were reviewed during today's visit. 29. Other secondary pulmonary hypertension (HCC) The patient is seeing a lpn or medical assistant for this condition, treatment is deferred to that specialist. Correspondence from that specialist and any available testing were reviewed during today's visit. 30. Grade II diastolic dysfunction The patient is seeing a lpn or medical assistant for this condition, treatment is deferred to that specialist. Correspondence from that specialist and any available testing were reviewed during today's visit. Follow up for Appointment As Scheduled. VALDEZ RouseC documented in this encounterShriners Hospitals for [id number] History of Present illness Narrative* Frantz Conley [...] by mouth 1 (one) time each day. 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 - This office visit was spent in consultation regarding the patient's current medical problems, differential diagnoses, testing/imaging results, and treatment options. Greater than 25 minutes was spent in [id number] consultation and coordination of care. Follow up in about 2 months (around 12/06/2024) for Recheck. documented in this encounterShriners Hospitals for [id number] History of Present illness Narrative* Crescencio Marin, - 09/08/2024 3:00 PM EDT Chief Complaint [...] PCI of the ostial/proximal circumflex at [facility] he says around 4+ years [...] tablet 1 tablet, Daily fish oil concentrate (Wichita-3) 120-180 mg capsule 1,000 mg, Daily levothyroxine [...] exam, discussion and plan. [facility] Work Phone: 1(606) 109-267406-17-2025 Instructions* Patient Instructions* Kina Mcduffie RN - [...] instructions on dietary changes. documented in this encounterThe [facility] Work Phone: 1([phone]) 301-570902-27-2025 Radiology Diagnostic study [facility] [place] [address] [place] [address] Ultrasound Report Signed Patient: Pankaj Payne MR#: [id number] : 1945 Acct:[id number] Age/Sex: 78 / M ADM Date: 5 Loc: Room: Type: [facility] Attending Dr: Mick Branch MD Ordering Provider: [...] Claros Jr., D.O.05/21/2024 10:23 AM Dictation Location: [place] [address] Tech: Lizyz Llanes Transcribed By: USMAN 05/21/24 1023 Dictated By: Kartik Claros Jr, DO 05/21/24 1022 Signed By: 05/21/24 [facility]3 [facility]02-06-2025 Evaluation note* Diagnosis Onset Date Resolution Status Admit Date Cirrhosis, nonalcoholic acuteFebruary 2024 12:56pmEsophageal varicesacuteFebruary 2024 12:56pm GAVE (gastric antral vascular ectasia)acuteFebruary 2024 12:56pmIron deficiency anemiaacuteFebruary 2024 12:56pmMetabolic dysfunction-associated steatohepatitis (MASH)acuteFebruary 2024 12:56pmMetabolic dysfunction- associated steatotic liver disease (MASLD)acuteFebruary 2024 12:56pm Pancytopenia, acquiredchronicFebruary 2024 12:56pm [facility] Work Phone: [phone]) [phone] History of Present illness Narrative* Frantz Conley [...] by mouth 1 (one) time each day. Wichita-3 Fatty Acids (Fish Oil) 1000 MG capsule [...] cholecystitis 08/13/2022 Anemia CAD (coronary artery disease) ([facility]) Calculus of gallbladder with acute on [...] need - Influenza, high-dose seasonal, quadrivalent, PF (FOW628) (Fluzone High Dose Quad North 0.7mL dose) Coronary artery disease involving ugashik coronary artery of ugashik heart without angina pectoris (CMS/HCC) - The patient is experiencing no symptoms from this condition currently, it is considered medicallycontrolled and no change in current therapies are planned. Mixed hyperlipidemia (CMS/HCC) - Lipid panel; Future Acquired hypothyroidism (CMS/HCC) - TSH W/REFLEX TO FT4; Future Prostate cancer screening - PSA Follow up in about 6 months (around 09/10/2024) for Wellness. documented in this encounterShriners Hospitals for [id number] History of Present illness Narrative* Crescencio Marin, [...] PCI of the ostial/proximal circumflex at [facility] he says around 3 years [...] daily., Disp: , Rfl: fish oil concentrate (Wichita-3) 120-180 mg capsule, Take 1 capsule (1,000 [...] exam, discussion and plan. documented in this [facility] Work Phone: 1([phone]) 388-465610-09-2024 Instructions* Patient Instructions* Shawna Flores RN - [...] Provided instructions on exercise. documented in this [facility] Work Phone: [phone]) 929-305307-31-2024 [facility]03-28-[facility]24 History of Present illness Narrative* [...] PCI of the ostial/proximal circumflex at [facility] he says around 3 years [...] bedtime., Disp: , Rfl: fish oil concentrate (Wichita-3) 120-180 mg capsule, Take 1 capsule (1,000 [...] exam, discussion and plan. documented in this encounterThe [facility] Work Phone: 1(109) 218-701403-28-2024 Instructions* Patient Instructions* Bernadette Santillan LPN - [...] Provided instructions on exercise. documented in this encounterThe [facility] System Work Phone: 1([phone]) 303-820802-14-2024 History of Present illness Narrative* Frantz Conley MD - 05/08/2023 10:30 AM EST Subjective Patient ID: Pankaj Payne is a 77 y.o. male who presents for Follow-up ([facility] stay: admitted 04/30/23 dx: anemia discharged home 05/01/23 follow up with hematology was 05/07/23) and Anemia. Flowsheet Row Telephone from 05/03/2023 in [facility] with Frantz Conley MD Discharge Information ED or Hospital Discharge? Hospital Patient has been contacted within two business days of discharge Yes Discharge Date 05/01/23 Discharge Hospital [facility] Discharged To: Home Setting Engagement Call [...] by mouth 1 (one) time each day. Wichita-3 Fatty Acids (Fish Oil) 1000 MG capsule [...] was discussed with Dr Sevilla, Hematology at [facility], he is following the patient and did see himin the hospital. Iron deficiency anemia, unspecified iron deficiency anemia type - Ambulatory referral to Gastroenterology; Future Other cirrhosis of liver (CMS/HCC) - US LIVER; Future Fatty liver disease, nonalcoholic - US LIVER; Future Hyperchylomicronemia (CMS/HCC) Follow up in about 4 weeks (around 06/05/2023) for Test/Lab Review. documented in this encounterShriners Hospitals for [id number] Evaluation note* Encounter Date Diagnosis Assessment Notes Treatment Notes Treatment Clinical Notes Aug, Cirrhosis (ICD-10 - K74.60) Dr. Conley (PCP) will order lab work Repeat fibroscan in 2024 Rto 1 yr Aug,NAFLD (nonalcoholic fatty liver disease) (ICD-10 - K76.0) Aug,NASH (nonalcoholic steatohepatitis) (ICD-10 - K75.81) [employer] Other 05-17-2023 Consult note Author Zoila Castorena [facility] August 08, 2022 3:09pmNote Date/TimeMay 2022 2:08pm[facility] [place] [address] Hem/Onc Consult Note - OP Signed Patient: Pankaj Payne MR#: [id number] : 1945 Acct:[id number] Age/Sex: 77 / M Type: REG RCR [...] smoking cigars while he was in the [employer] but was not a regular cigarette smoker. [...] PO QAM 04/26/21 [History Confirmed 08/08/22] omega 0-icz-gjk-fish oil 1,000 mg (120 mg-180 mg) capsule [...] diverticulosis. Impression dictated by: Kartik Claros Jr., D.OKita10/10/2021 4:37 PM Assessment and Plan (1) Pancytopenia, [...] for coordination of care (as documented) and tmbb-hw-dkrb counseling of patient and/or family. Dictated By: Zoila Castorena MD DD/ [id number] Signed By: <Electronically signed by MD Zoila Castorena> 08/08/22 7821 [facility] Work Phone: [phone]) 350-821306-22-2022 Evaluation note* Encounter Date Diagnosis Assessment Notes Treatment Notes Treatment Clinical Notes Aug, Fatty liver (ICD-10 - K76.0) ENCOURAGED WATCHING DIET, EXERCISE AND WEIGHT LOSS. WILL NEED TO MONITOR IMAGING EVERY 6 MONTHS. PROCEED WITH EGD Aug,ther cirrhosis of liver (ICD-10 - K74.69) Aug,NAFLD (nonalcoholic fatty liver disease) (ICD-10 - K76.0) Aug,NASH (nonalcoholic steatohepatitis) (ICD-10 - K75.81) [employer] Other 05-26-2022 Hospital Discharge instructions* Instructions* Pato [...] called to the trauma nurse line at [phone] and please leave a message. Trauma is [...] Injury Discharge Instructions Thank you for choosing [facility] and [facility] for your recovery needs. The following instructions will help to ensure your comfort and that you are wellprepared for your recovery. Follow-up Visit: The office is located at: [facility] [address] [place] [address], [address], [place] [address] [x] Please have a CT scan of your head done prior to this appointment. Please also call your primary care physician to schedule an appointment for further evaluation and care. You can obtain CT head closer to home and have them electronically send the imaging to [facility] so we can see the scan You can follow up with Neurosurgery closer to home of you can do virtual visit with [facility]orsche the outpatient [facility] Ok to restart your ASPIRIN today 08/17 [...] medications. YOU SHOULD CALL THE OFFICE AT [phone] IF YOU HAVE ANY OF THE FOLLOWING: [...] the emergency department. 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 [employer] TECHNOLOGIST PROVIDED HISTORY: SAH and SDH Decision [...] SYSTEM PROVIDED HISTORY: Impact with object riding manager credit collections TECHNOLOGIST PROVIDED HISTORY: Impact with object riding manager credit collections Decision Support Exception - unselect if not [...] recent progress note documented in this encounterBON [facility] Pizza [employer] Phone: [phone]) [phone] Evaluation note* Encounter Date Diagnosis Assessment Notes Treatment Notes Treatment Clinical Notes Jun, Cirrhosis (ICD-10 - K74.60) [employer] Other 03-01-2022 History general Narrative - Reported* Type Description Date Surgical History cholecystectomy 05/2021 Surgical History heart stent Surgical Historycataracts, bilaterally [employer] Other 03-01-2022 History general Narrative - Reported* Type Description Date Surgical History cholecystectomy 05/2021 Surgical History heart stent Surgical Historycataracts, bilaterallyHospitalization Historysee surgical hx [employer] Other Evaluation note* Diagnosis SAH (subarachnoid hemorrhage) (HCC)- Primary Subarachnoid hemorrhage Subarachnoid hemorrhage following injury, no loss of consciousness, initial encounter (HCC) Facial laceration, initial encounter Subdural hematoma (HCC) Subdural hemorrhage documented in this encounter [employer] Phone: evaluation noteNo assessment information available [facility] [employer] Work Phone: Evaluation note* Diagnosis Onset Date Resolution Status Liver cirrhosis secondary to nonalcoholi c steatohepatitis (PLASCENCIA) chronicPancytopenia, acquiredchronic [facility] [employer] Work Phone: Evaluation note* Diagnosis Pancytopenia, acquired (CMS/HCC)- Primary Pancytopenia Iron deficiency anemia, unspecified iron deficiency anemia type Other cirrhosis of liver (CMS/HCC) Fatty liver disease, 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 in this encounter [facility] Healthcare[facility] note* Diagnosis ASHD (arteriosclerotic heart disease) Coronary atherosclerosis of unspecified type of vessel, ugashik or graft History of coronary artery stent placement Ascending aorta dilation (CMS/HCC) Thoracic aneurysm without mention of rupture Iron deficiency anemia, unspecified iron deficiency anemia type PVC (premature ventricular contraction) Other premature beats Former cigarette smoker Personal history of tobacco use, presenting hazards to health documented in this encounter [facility] Work Phone: Evaluation note* Diagnosis Onset Date Resolution Status Cirrhosis, nonalcoholic acuteNon-alcoholic fatty liver diseaseacuteNonalcoholic steatohepatitis (PLASCENCIA) acute [facility] Work Phone: Evaluation note* Diagnosis ASHD (arteriosclerotic heart disease) Coronary atherosclerosis of unspecified type of vessel, ugashik or graft PVC (premature ventricular contraction) Other premature beats History of coronary artery stent placement Former cigarette smoker Personal history of tobacco use, presenting hazards to health BMI 29.0-29.9,adult Bradycardia Other specified cardiac dysrhythmias documented in this encounter [facility] Work Phone: Evaluation note* Diagnosis Benign essential HTN (CMS/HCC)- Primary Flu vaccine need Coronary artery disease involving ugashik coronary artery of ugashik heart without angina pectoris (CMS/HCC) Mixed hyperlipidemia (CMS/HCC) Mixed hyperlipidemia Acquired hypothyroidism (CMS/HCC) Unspecified hypothyroidism Prostate cancer screening Special screening for malignant neoplasm of prostate documented in this encounter [facility] HealthcareEvaluation note* Diagnosis Mixed hyperlipidemia (CMS/HCC)- Primary Mixed hyperlipidemia documented in this encounter [facility] HealthcareEvaluation note* Diagnosis ASHD (arteriosclerotic heart disease) Coronary atherosclerosis of unspecified type of vessel, ugashik or graft History of coronary artery stent placement PVC (premature ventricular contraction) Other premature beats BMI 30.0-30.9,adult Former cigarette smoker Personal history of tobacco use, presenting hazards to health Hyperlipidemia, unspecified hyperlipidemia type documented in this encounter [facility] Work Phone: Evaluation note* Diagnosis Sinus bradycardia- Primary Other specified cardiac dysrhythmias PVCs (premature ventricular contractions) Other premature beats Coronary artery disease involving ugashik coronary artery of ugashik heart without angina pectoris 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) documented in this encounter [facility] HealthcareEvaluation note* Diagnosis Medicare annual wellness visit, subsequent- Primary ACP (advance care planning) Other specified counseling Chronic insomnia Insomnia, unspecified Other chronic pain Benign essential HTN Benign hypertensive heart and CKD, 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), w CHF (HCC) Coronary artery disease involving ugashik coronary artery of ugashik heart without angina pectoris Dilatation of aorta [...] unspecified iron deficiency anemia type Pancytopenia, acquired ([facility]-HCC) Pancytopenia Former cigarette smoker Personal history of tobacco use, presenting hazards to health Mixed hyperlipidemia Mixed hyperlipidemia Situational anxiety Unsteadiness on feet Esophageal varices without bleeding (HCC) Esophageal varices without mention of bleeding Other secondary pulmonary hypertension (HCC) Grade II diastolic dysfunction documented in this encounter [facility] HealthcareEvaluation note* Diagnosis Onset Date Resolution Status Admit Date Cirrhosis, nonalcoholic acuteAugust 2024 1:26pmEsophageal varicesacuteAugust 2024 1:26pm Metabolic dysfunction-associated steatohepatitis (MASH)acuteAugust 2024 1:26pm [facility] Work Phone: Evaluation note* Diagnosis Sinus node dysfunction (Multi)- Primary ASHD (arteriosclerotic heart disease) Coronary atherosclerosis of unspecified type of vessel, ugashik or graft BMI 30.0-30.9,adult documented in this encounter [facility] Work Phone: Evaluation note* Diagnosis Hospital discharge follow-up- Primary Other follow-up examination Cough, unspecified type Constipation, unspecified constipation type documented in this encounter [facility] HealthcareEvaluation note* Diagnosis Sinus node dysfunction (Multi)- Primary ASHD (arteriosclerotic heart disease) Coronary atherosclerosis of unspecified type of vessel, ugashik or graft BMI 30.0-30.9,adult Localized edema Edema Sinus node dysfunction (Multi) PVC (premature ventricular contraction) Other premature beats History of coronary artery stent placement ASHD (arteriosclerotic heart disease) Coronary atherosclerosis of unspecified type of vessel, ugashik or graft Ascending aorta dilation Thoracic aneurysm without mention of rupture Former cigarette smoker Personal history of tobacco use, presenting hazards to health BMI 31.0-31.9,adult CHF (congestive heart failure), NYHA class I, unspecified failure chronicity, diastolic (Multi) documented in this encounter [facility] Work Phone: History and physical note Author Mick Branch [facility] October 23, 2023 10:14amNote Date/TimeJuly 2023 10:14[place] [address] Gastroenterology H&P Signed Patient: Pankaj Payne MR#: [id number] : 1945 Acct:[id number] Age/Sex: 78 / M Adm Date: 4 Loc: Room: Type: [facility] Attending Dr: Mick Branch MD Copies [...] signed by Mick Branch MD> 10/23/23 1014 [facility] Work Phone: Hospital Discharge instructions [...] cancer screening. -Continue to follow with your workers compensation legal secretary Dr. Sevilla. -Notify the doctor if you have any problems. -Follow up with PCP. - Office number [phone].[facility] Work Phone: Hospital Discharge instructionsAdditional Instructions Post-procedure instructions for Cardiac Implantable Electronic Devices (CIEDs), including: - Pulse generators change out - Pacemaker implant: single chamber, dual chambers, or biventricular pacemaker - Implantable cardiac defibrillator - Implantable loop recorder Activities: - Take the [...] am. Please report to the main entrance of [facility] for the above appointments. Plan on arriving 15 minutes prior to your scheduled appointment time. [facility] Work Phone: Rezhky for referral (narrative)* Consultation (Routine) - AuthorizedSpecialtyDiagnoses / ProceduresReferred By Contact Referred To ContactGastroenterology Diagnoses Iron deficiency anemia, unspecified iron deficiency anemia type Procedures [place] OFFICE/OUTPATIENT [facility] 60 MINUTES Frantz Conley MD [address] [facility] [address] [place] [address] Mick Branch MD [address] [facility] [address] [place] [address] Referral IDStatusReasonStart DateExpiration DateVisits RequestedVisits [id number] Specialty Services Required / [facility] (narrative)No reason for referral information availableClinton Memorial Hospital [facility]tr Work Phone: Reovku for visit NarrativePT HERE AT REQUEST OF DR DAY FOR EVALUATION AND TREATMENT OF CIRRHOSIS, REFERRAL NOTE RECEIVEDVernon Hills SocialDiabetes Other Summary Purpose Family History Relationship Condition [...] diseaseUnknownsister Chronic obstructive pulmonary diseaseUnknown Advance Directives Code StatusDate ActivatedDate InactivatedCommentsFull Code08/16/2021 8:15 PM Advance Directive Response Recorded Date/ Time Advance Directives No April 24, 2021 10:52am Advance Directive Response Recorded Date/ Time Advance Directives No April 24, 2021 9:52am Hospital Course Note MR#: [id number] [facility] Pt. Name: Pankaj Payne Admitted: [...] no loss of consciousness, initial encounter ([facility]) Procedures CT HEAD WO CONTRAST Pato Grissom, WAN SUPPORT SPECIALIST - REGISTER OF WILLS [address] [place] [address] Referral IDStatusReasonStart DateExpiration DateVisits RequestedVisits [id number]/2/20226/[id number] / ProceduresReferred By ContactReferred To ContactCardiology Diagnoses PVC (premature ventricular contraction) Procedures Holter Or Event Riveter Helper Crescencio Marin, [address] [facility], [address] [place] [address] Referral IDStatusReasonStart DateExpiration DateVisits RequestedVisits [id number] [id number] / ProceduresReferred By ContactReferred To Contact Diagnoses PVC (premature ventricular contraction) Procedures ECG 12 Lead Crescencio Marin, DO [address], [address] [place], [place] [id number] Referral IDStatusReasonStart DateExpiration DateVisits RequestedVisits [id number]/28/20243/28/146423TzxbnoxkfLgeiszjft / Procedures Referred By ContactReferred To ContactCardiology Diagnoses ASHD (arteriosclerotic heart disease) Procedures Follow Up In Cardiology Crescencio Marin, DO [address] [facility] 2, [place] [id number] Crescencio Marin, DO [address] [facility] 2, [place] [phone] Referral IDStatusReasonStart DateExpiration DateVisits RequestedVisits [id number]/28/20243/28/759470SqweqvfjmPkleolotu / Procedures Referred By ContactReferred To Contact Diagnoses PVC (premature ventricular contraction) Bradycardia Procedures ECG 12 Lead Crescencio Marin, DO [address] [facility] [address], [place] [phone] Referral IDStatusReasonStart DateExpiration DateVisits RequestedVisits [id number]/9/202410/9/391944Jsmttxgw IDStatusReasonStart Date Expiration DateVisits RequestedVisits [id number]/9/2024 Chief Complaint and Reason for Visit Chief [...] 1:26pm Pancytopenia, acquired November 11, 2024 1:26pm Chief Complaint Admit [...] node dysfu nction January 15, 2025 7:39am Additional Source Comments (unrecognized sect ion and content) No Status Records FoundNo Status Records FoundNo Status Records FoundNo Status Records FoundNo Status Records FoundNo Status Records FoundNo Status Records FoundNo Status Records FoundNo Status Records Found INFORMATION SOURCE (unrecogn ized section and content) DATE CREATED AUTHOR 03/05/2018 [facility] DATE CREATED AUTHOR AUTHOR'S ORGANIZ ATION 11/12/2018 [facility] DATE CREATED AUTHOR AUTHOR'S ORGANIZ ATION 06/08/2021 [facility] DATE CREATED AUTHOR AUTHOR'S ORGANIZ ATION 08/20/2021 [facility] DATE CREATED AUTHOR AUTHOR'S ORGANIZ ATION 11/15/2021 [facility] DATE CREATED AUTHOR AUTHOR'S ORGANIZ ATION 07/11/2024 [facility] DATE CREATED AUTHOR AUTHOR'S ORGANIZ ATION 01/09/2025 [facility] EP[facility] DATE CREATED AUTHOR AUTHOR'S ORGANIZ ATION 01/26/2025 [facility] DATE CREATED AUTHOR AUTHOR'S ORGANIZ ATION 01/28/2025 [facility] Reason for Visit (unrecogniz ed section and content) ReasonCommentsHead InjuryReasonCommentsFollow-upTBH stay: admitted 04/30/23 dx: anemia discharged home 05/01/23 follow up with hematology was 05/07/23AnemiaReason CommentsNew Patient VisitReferral for CADSpecialtyDiagnoses / ProceduresReferred By ContactReferred To Contact Diagnoses PVC (premature ventricular contraction) Procedures ECG 12 Lead Crescencio Marin DO [address] [facility] [address], [address] [address] Referral IDStatNationwide Children's [facility] DateExpiration DateVisits RequestedVisits [id number]/28/20243/482451SneqbrFuegnkuyJxanta-tg0 month SpecialtyDiagnoses / ProceduresReferred By ContactReferred To ContactCardiology Diagnoses ASHD (arteriosclerotic heart disease) Procedures Follow Up In Cardiology Crescencio Marin DO [address] [facility] [address], [address] [address] Crescencio Marin DO [address] [facility] [address], [address] [address] Referral IDStatusReasonStart DateExpiration DateVisits RequestedVisits [id number]/28/20243/606276VibbiuEopvnsnhVecryelznlhuXxdvat Onset DateCommentsMed Ghgkcd2904/22/2024ReasonCommentsFollow-up8 month visit for cad.SpecialtyDiagnoses / ProceduresReferred By ContactReferred To Contact Cardiology Diagnoses ASHD (arteriosclerotic heart disease) Procedures Follow Up In Cardiology Crescencio Marin, DO [address] [facility] [address], [place] [phone] Phone: tel: fax: Crescencio Marin, DO [address] [facility] [address], [place] [phone] Phone: tel: fax: Referral IDStatusReasonStart DateExpiration DateVisits RequestedVisits [id number]/9/202410/9/811549QhcjawHbpvvonkYvrcbbochrwEkprov [facility] Wellness Visit SubsequentReasonCommentsFollow-upBellevue discharge 12/25. Patient [...] ered Medications (unrecognized section and content) Medication Order// acetaminophen (TYLENOL) tablet 1,000 mg 1,000 mg, Oral, EVERY 8 HOURS SCHEDULED (3 times per day), First dose on Sat08/16/21 at 2200, UntilDiscontinued, Maximum dose of acetaminophen is 4000 mg from all sources in 24 hours. * 0 (Given - Provider: Josephine Romero RN) * 0546 (Given - Provider: Remedios Polanco RN) * 1400 (Due) * 2200 (Due) atorvastatin (LIPITOR) tablet 20 mg 20 mg, Oral, Nightly, First dose on Sat08/16/21 at 2100, Until Discontinued * 2119 (Given - Provider: Josephine Romero RN) * 2099 (Due) levothyroxine (SYNTHROID) tablet 100 mcg [...] * 0838 (Given - Provider: Sybil Avalos MARISOL) * 2100 (Due) therapeutic multivitamin-minerals 1 tablet 1 tablet, Oral, DAILY, First dose on Sat08/16/21 at 2030, Until Discontinued * 2119 (Given - Provider: Josephine Romero RN) * 0838 (Given - Provider: Sybil Avalos, MARISOL) tiZANidine (ZANAFLEX) tablet 4 mg 4 mg, Oral, NIGHTLY, First dose on Sat08/16/21 at 2099, Until Discontinued * 2014 (Held by provider - Provider: Rishi Arteaga DO - Reason: Other) * 2015 (Unheld by provider - Provider: Rishi Arteaga DO) * 2119 (Given - Provider: Josephine Romero RN) * 2099 (Due - Provider: Rishi Arteaga DO) Medication Order/ 0.9 % sodium chloride infusion (CANCELED) IntraVENous, at 75 mL/hr, CONTINUOUS, Starting on Sat08/16/21 at 2029 * 2122 (New Bag - Provider: Josephine Romero RN) * 2124 (Rate/Dose Verify - Provider: Remedios Polanco RN) * 0020 (Rate/Dose Verify - Provider: Remedios Polanco RN) * 0457 (Rate/Dose Verify - Provider: Remedios Polanco RN) * 0707 (Rate/Dose Verify - Provider: Remedios Polanco, MARISOL) * 1009 (Stopped - Provider: Sybil Avalos, MARISOL) Medication Order/// 0.9 % sodium chloride infusion IntraVENous, at [...] 2023Team MemberRelationshipSpecialtyStart DateEnd Date Frantz Conley MD [address] [place] [address] PCP - GeneralInternal Medicine08/16/21 Team Status: Inactive Member Role Status Dates Frantz Conley II MD Primary Care Provider Active Reva Dobbins ProviderActive Team Status: Inactive Member Role Status Dates Frantz Conley II MD Primary Care Provider, Attending Provider Active Team Status: Active Member Role Status Dates Frantz Conley II MD Primary Care Provider, Referring Provider Active Reva Saldaña ProviderActiveTeam MemberRelationshipSpecialtyStart Date End Date Frantz Conley MD [address] [place] [address] PCP - GeneralInternal Medicine08/08/22 Frantz Conley MD [address] [place] [address] PCP - [facility]08/16/22Team MemberRelationshipSpecialtyStart DateEnd Date Frantz Conley MD [address] [place] [address] PCP - GeneralInternal Medicine08/08/22 Frantz Conley MD [address] [place] [address] PCP - [facility]08/16/22Team MemberRelationshipSpecialtyStart DateEnd Date Frantz Conley MD [address] [place] [address] PCP - GeneralInternal Medicine06/20/23 Team Status: Inactive Member Role Status Dates [...] Active Start: October 23, 2023 End: October 22Reva Curtis ProviderActiveStart: October 23, 2023 End: October 23, 2023 Team Status: Active Member Role Status Dates Frantz Conley II MD Primary Care Provider Active Start: October 23, 2023 Reva Dobbins Provider, Other ProviderActiveStart: October 23, 2023 Team MemberRelationshipSpecialtyStart DateEnd Date Frantz Conley MD [address] [facility] [address] [place] [address] [facility] - [facility]/08/22 Frantz Conley MD [address] [facility] [address] [place] [address] PCP - [facility]08/16/22Team MemberRelationshipSpecialtyStart DateEnd Date Frantz Conley MD [address] [place] [address] [facility] - [facility]08/08/22 Frantz Conley MD [address] [place] [address] PCP - [facility]08/16/22Team MemberRelationshipSpecialtyStart DateEnd Date Frantz Conley MD [address] [place] [address] PCP - GeneralInternal Medicine08/08/22 Frantz Conley MD [address] [place] [address] PCP - [facility]08/16/22Team MemberRelationshipSpecialtyStart DateEnd Date Frantz Conley MD [address] [place] [address] PCP - GeneralInternal Medicine08/08/22 Frantz Conley MD [address] [place] [address] PCP - [facility]08/16/22 Team Status: Inactive Member Role Status Dates Frantz Conley II MD Primary Care Provider Active Start: April 30, 2024 End: April 30Reva Curtis ProviderActiveStart: April 30, 2024 End: April 30, 2024 Team Status: Inactive Member Role Status Dates Frantz Conley II MD Primary Care Provider Active Start: May 21, 2024 End: May 21Reva Curtis ProviderActiveStart: May 21, 2024 End: May 21, 2024Team MemberRelationshipSpecialtyStart DateEnd Date Frantz Conley MD [address] [facility] [address] [place] [address] PCP - GeneralInternal [facility]06/20/23Team MemberRelationshipSpecialtyStart Date End Date Frantz Conley MD [address] [place] [address] PCP - GeneralInternal Medicine08/08/22 Frantz Conley MD [address] [place] [address] PCP - [facility]08/16/22Team MemberRelationshipSpecialtyStart DateEnd Date Frantz Conley MD [address] [place] [address] [facility] - [facility] Frantz Conley MD [address] [place] [address] PCP - [facility]08/16/22Team MemberRelationshipSpecialtyStart DateEnd Date Frantz Conley MD [address] [place] [address] PCP - [facility]08/08/22 Frantz Conley MD [address] [place] [address] PCP - [facility]08/16/22 Team Status: Inactive Member Role [...] MemberRelationshipSpecialtyStart DateEnd Date Frantz Conley MD [address] [place] [address] PCP - [facility]08/08/22 Frantz Conley MD [address] [place] [address] PCP - [facility]08/16/22 Team Status: Active Member Role Status Dates Alex Marin DO Lease Examiner Active Team Status: Inactive Member Role Status Dates Rc Hernandez MD Attending Provider Active Sta rt: December 25, 2024 End: December 25, 2024Team MemberRelationshipSpecialtyStart DateEnd Date Frantz Conley MD [address] [place] [address] [facility] - [facility]06/20/23Team MemberRelationshipSpecialtyStart Date End Date Frantz Conley MD [address] [place] [address] PCP - GeneralInternal Medicine08/08/22 Frantz Conley MD [address] [place] [address] PCP - [facility]08/16/22Team MemberRelationshipSpecialtyStart DateEnd Date Frantz Conley MD [address] [place] [address] PCP - GeneralInternal Medicine06/20/23Team MemberRelationshipSpecialtyStart Date End Date Frantz Conley MD [address] [place] [address] PCP - GeneralInternal Medicine08/08/22 Frantz Conley MD [address] [place] [address] PCP - [facility]08/16/22 Team Status: Active Member Role/Relationship Status Dates Alex Marin DO Lease Examiner Active NON STAFFPrimary Care ProviderActive Team Status: Inactive Member Role/Relationship Status Dates Frantz Conley II MD Primary Care Provider Active Start: November 02, 2024 End: November 02Reva Curtis ProviderActiveStart: November 02, 2024 End: November 02, 2024 Team Status: Inactive Member Role/Relationship Status Dates Frantz Conley II MD Primary Care Provider Active Start: November 11, 2024 End: November 11Reva Curtis ProviderActiveStart: November 11, 2024 End: November 11, 2024 Team Status: Inactive Member Role/Relationship Status Dates Rc Hernandez MD Attending Provider Active Sta rt: December 25, 2024 End: December 25, 2024 Team Status: Active Member Role/Relationship Status Dates Leisa Jennings MD Attending Provider Active Start: January 15, 2025 Liesa Jennings MDOther ProviderActiveStart: January 15, 2025 NON STAFFPrimary Care ProviderActiveStart: January 15, 2025 Sofia Mendenhall RNOther ProviderActiveStart: January 15, 2025 End: January 16, 2025Micisabel Sevilla RNOther ProviderActiveStart: January 15, 2025 End: January 16, 2025Mojigar Shah RNOther ProviderActiveStart: January 15, 2025 End: January 16, 2025Marjohn Hirsch RNOther ProviderActiveStart: January 15, 2025 End: January 16, 2025Marade Sweet RNOther ProviderActiveStart: January 15, 2025 End: January 16, 2025Ramaryanne Hernandez MDOther ProviderActiveStart: January 15, 2025 End: January 16, 2025Ronjayden Watson DOOther ProviderActiveStart: January 15, 2025 End: January 16, 2025Muschris Casey MDOther ProviderActiveStart: January 15, 2025 End: January 16, 2025Naveed Nice DOOther ProviderActiveStart: January 15, 2025 End: January 16ndserena Cespedes MDOther ProviderActiveStart: January 15, 2025 End: January 16, 2025Eleni Torres MDOther ProviderActiveStart: January 15, 2025 End: January 16, 2025Michaejustin Berkowitz , DOOther ProviderActiveStart: January 15, 2025 End: January 16, 2025Tez Burt ProviderActiveStart: January 15, 2025 End: January 16, 2025Sri Estrada APRNOther ProviderActiveStart: January 15, 2025 End: January 16, 2025Areli Caceres MDOther ProviderActiveStart: January 15, 2025 End: January 16, 2025Tez Shah ProviderActiveStart: January 15, 2025 End: January 16, 2025Saash Garcia MDOther ProviderActiveStart: January 15, 2025 End: January 16, 2025Michaejustin Curry , DOOther ProviderActiveStart: January 15, 2025 End: January 16, 2025Denise Rodriguez MDOther ProviderActiveStart: January 15, 2025 End: January 16, 2025Earjustin Barajas MDOther ProviderActiveStart: January 15, 2025 End: January 16todd Betts NP-COther ProviderActiveStart: January 15, 2025 End: January 16dAra Trinhher ProviderActiveStart: January 15, 2025 End: January 16, 2025Tez Krueger ProviderActiveStart: January 15, 2025 End: January 16, 2025Brent Gonzalez MDOther ProviderActiveStart: January 15, 2025 End: January 16, 2025KhTez Hughes ProviderActiveStart: January 15, 2025 End: January 16, 2025Lio Gutierrez DOOther ProviderActiveStart: January 15, 2025 End: January 16, 2025Laina Wilson ProviderActiveStart: January 15, 2025 End: January 16, 2025Lucian Pickens DOOther ProviderActiveStart: January 15, 2025 End: January 16, 2025Tez Frias ProviderActiveStart: January 15, 2025 End: January 16, 2025Dayana Barlow , APRNOther ProviderActiveStart: January 15, 2025 End: January 16britney Farr , APRNOther ProviderActiveStart: January 15, 2025 End: January 16kelsey Ritchie MDOther ProviderActiveStart: January 15, 2025 End: January 16, 2025Frantz Smallwood MDOther ProviderActiveStart: January 15, 2025 End: January 16gabino Gifford DOOther ProviderActiveStart: January 15, 2025 End: January 16, 2025Henry Cain MDOther ProviderActiveStart: January 15, 2025 End: January 16glen Park MDOther ProviderActiveStart: January 15, 2025 End: January 16evon Sherwood APRNOther ProviderActiveStart: January 15, 2025 End: January 16, 2025Az Van MDOther ProviderActiveStart: January 15, 2025 End: January 16, 2025Kartik Webb MDOther ProviderActiveStart: January 15, 2025 End: January 16, 2025Douglas Roper MDOther ProviderActiveStart: January 15, 2025 End: January 16, 2025Rabrie Browning MDOther ProviderActiveStart: January 15, 2025 End: January 16, 2025Cait Roe APRNOther ProviderActiveStart: January 15, 2025 End: January 16, 2025Ethan Eagle APRNOther ProviderActiveStart: January 15, 2025 End: January 16, 2025Lee Ann Meneses MDOther ProviderActiveStart: January 15, 2025 End: January 16, 2025Sagume Thomson RNOther ProviderActiveStart: January 15, 2025 End: January 16, 2025 Goals (unrecognized section and content) Goals may [...] BE BASED ON THE PRIMARY CLINICAL RECORDS. [facility] [employer] [facility]. provides no warranty or guarantee of the accuracy or completeness of information in this document.
[2025-02-08 10:08] LABS: Alanine Aminotransferase 43 U/L (16-63); Albumin Globulin Ratio 0.8; Albumin Level 2.6 g/dL (3.4-5.0); Alkaline Phosphatase 171 U/L (46-116); Anion Gap 8.1; Aspartate Amino Transferase 53 U/L (15-37); Blood Urea Nitrogen 15.0 mg/dL (7.0-18.0); Calcium 8.3 mg/dL (8.5-10.1); Carbon Dioxide 26.8 mmol/L (21.0-32.0); Chloride 112 mmol/L (98-107); Estimated GFR (African America >60 (>=60 mL/min/1.73m^2); Estimated GFR (Non-African Ame >60 (>=60 mL/min/1.73m^2); Globulin 3.4 g/dL; Glucose 90 mg/dL (74-106); Potassium 3.9 mmol/L (3.5-5.1); Sodium 143 mmol/L (136-145); Total Protein 6.0 g/dL (6.4-8.2)
[2025-02-08 11:05] LABS: Ferritin 154.0 ng/mL (26.0-388.0)
== END 2025-02-08 08:57 | disposition home or self-care (01) ==
LOC: LAB 08:59
PROVIDERS: PCP Internal Medicine; Visit Provider Internal Medicine Hematology & Oncology
DX: D64.9 Anemia, unspecified (principal); D50.9 Iron deficiency anemia, unspecified; D50.0 Iron deficiency anemia secondary to blood loss (chronic); K90.9 Intestinal malabsorption, unspecified; D72.819 Decreased white blood cell count, unspecified; D69.6 Thrombocytopenia, unspecified
CPT/HCPCS: 36415; 80053; 82728

== ENCOUNTER 2025-02-11 11:02 | Outpatient (RCR) | payer MEDICARE, OTHER, SELFPAY ==
[2025-01-23 00:09] VITALS: BP 109/69; PULSE 52; TEMP 36.4; O2SAT 96
== END 2025-02-21 23:59 | disposition home or self-care (01) ==
LOC: HEMC 11:02
PROVIDERS: PCP Internal Medicine; Visit Provider Internal Medicine Hematology & Oncology
DX: D50.9 Iron deficiency anemia, unspecified (principal); I95.9 Hypotension, unspecified; I25.10 Atherosclerotic heart disease of native coronary artery without angina pectoris; I49.9 Cardiac arrhythmia, unspecified; Z95.5 Presence of coronary angioplasty implant and graft; Z79.82 Long term (current) use of aspirin; Z79.02 Long term (current) use of antithrombotics/antiplatelets; Z90.49 Acquired absence of other specified parts of digestive tract; D72.819 Decreased white blood cell count, unspecified; D69.6 Thrombocytopenia, unspecified; K74.60 Unspecified cirrhosis of liver; R19.5 Other fecal abnormalities; R16.1 Splenomegaly, not elsewhere classified; K76.6 Portal hypertension; K31.89 Other diseases of stomach and duodenum
CPT/HCPCS: G0463